=== PATIENT | female | born 1945 | race Caucasian/White ===

== ENCOUNTER 2017-12-03 07:44 | Outpatient (CLI) | payer MEDICARE, BC, SELFPAY ==
[2017-12-03 09:42] LABS: Prothrombin Time 28.6 sec (9.3-10.8)
== END 2017-12-03 07:45 ==
PROVIDERS: PCP Family Medicine; Visit Provider Internal Medicine
DX: I48.2 Chronic atrial fibrillation (principal); Z79.01 Long term (current) use of anticoagulants
CPT/HCPCS: 36415; 85610

== ENCOUNTER 2017-12-10 07:39 | Outpatient (CLI) | payer MEDICARE, BC, SELFPAY ==
[2017-12-10 09:44] LABS: Prothrombin Time 39.1 sec (9.3-10.8)
[2017-12-10 10:10] LABS: INR 4.2 (1.0-3.5)
== END 2017-12-10 07:40 ==
PROVIDERS: PCP Family Medicine; Visit Provider Internal Medicine
DX: I48.2 Chronic atrial fibrillation (principal); Z79.01 Long term (current) use of anticoagulants
CPT/HCPCS: 36415; 85610

== ENCOUNTER 2017-12-17 08:12 | Outpatient (CLI) | payer MEDICARE, BC, SELFPAY ==
[2017-12-17 10:45] LABS: INR 3.3 (1.0-3.5); Prothrombin Time 30.7 sec (9.3-10.8)
== END 2017-12-17 08:13 ==
PROVIDERS: PCP Family Medicine; Visit Provider Internal Medicine
DX: I48.2 Chronic atrial fibrillation (principal); Z79.01 Long term (current) use of anticoagulants
CPT/HCPCS: 36415; 85610

== ENCOUNTER 2018-01-11 13:37 | Outpatient (CLI) | payer MEDICARE, BC, SELFPAY ==
[2018-01-11 15:03] LABS: INR 2.9 (1.0-3.5); Prothrombin Time 27.5 sec (9.3-10.8)
== END 2018-01-11 13:57 ==
PROVIDERS: PCP Family Medicine; Visit Provider Internal Medicine
DX: I48.2 Chronic atrial fibrillation (principal); Z79.01 Long term (current) use of anticoagulants
CPT/HCPCS: 36415; 85610

== ENCOUNTER 2018-01-25 08:17 | Outpatient (CLI) | payer MEDICARE, BC, SELFPAY ==
[2018-01-25 11:25] LABS: INR 3.5 (1.0-3.5); Prothrombin Time 32.8 sec (9.3-10.8)
== END 2018-01-25 08:37 ==
PROVIDERS: PCP Family Medicine; Visit Provider Internal Medicine
DX: I48.2 Chronic atrial fibrillation (principal); Z79.01 Long term (current) use of anticoagulants
CPT/HCPCS: 36415; 85610

== ENCOUNTER 2018-02-01 10:27 | Outpatient (CLI) | payer MEDICARE, BC, SELFPAY ==
[2018-02-01 11:54] LABS: INR 2.7 (1.0-3.5); Prothrombin Time 25.9 sec (9.3-10.8)
== END 2018-02-01 10:47 ==
PROVIDERS: PCP Family Medicine; Visit Provider Internal Medicine
DX: I48.2 Chronic atrial fibrillation (principal); Z79.01 Long term (current) use of anticoagulants
CPT/HCPCS: 36415; 85610

== ENCOUNTER 2018-02-15 07:45 | Outpatient (CLI) | payer MEDICARE, BC, SELFPAY ==
[2018-02-15 09:43] LABS: INR 3.3 (1.0-3.5); Prothrombin Time 30.9 sec (9.3-10.8)
[2018-02-15 11:18] LABS: ALT 22 U/L (12-78); Anion Gap 11.1 mmol/L (3-11); BUN 36 mg/dL (7-18); CO2 25.9 mmol/L (21.0-32.0); Calcium 8.6 mg/dL (8.5-10.1); Chloride 107 mmol/L (98-107); Cholesterol 140 mg/dL (50-200); Estimated GFR 40.26 (mL/min/1.73m2); Glucose 108 mg/dL (70-100); HDL Cholesterol 37 mg/dL (40-60); LDL CHOLESTEROL 89 mg/dL (<100); Magnesium 1.7 mg/dL (1.8-2.4); Potassium 4.5 mmol/L (3.5-5.1); Sodium 144 mmol/L (136-145); TSH (W/Ref FT4) 0.03 uIU/mL (0.358-3.74); Triglyceride 115 mg/dL (30-150)
[2018-02-15 11:39] LABS: FREE T4 1.86 ng/dL (0.76-1.46)
[2018-02-17 11:38] LABS: Hepatitis C Ab w Rflx HCV PCR Negative (NEGAT)
== END 2018-02-15 08:05 ==
PROVIDERS: PCP Family Medicine; Visit Provider Internal Medicine
DX: E11.9 Type 2 diabetes mellitus without complications (principal); I10 Essential (primary) hypertension; E03.9 Hypothyroidism, unspecified; Z11.59 Encounter for screening for other viral diseases; I48.2 Chronic atrial fibrillation; Z79.01 Long term (current) use of anticoagulants
CPT/HCPCS: 36415; 80048; 80061; 83721; 86803; 83036; 83735; 84439; 84443; 84460; 85610

== ENCOUNTER 2018-02-22 10:15 | Outpatient (REF) | payer MEDICARE, BC, SELFPAY ==
[2018-02-22 13:26] LABS: HCT 35.7 % (36.0-46.0); HGB 11.7 g/dL (12.0-15.5); Mean Corp. HGB Concentration 32.8 g/dL (32.0-36.0); Mean Corpuscular Hemoglobin 33.4 pg (27.0-33.0); Mean Platelet Volume 12.2 fL (8.0-11.0); Platelet Count 167 x1000/uL (130-400); RBC Distribution Width 13.8 % (11.7-14.6); White Blood Cell Count 8.85 k/cumm (4.4-10.8)
[2018-02-22 14:45] LABS: Uric Acid 7.3 mg/dL (2.6-6.0)
[2018-02-23 18:53] LABS: Tissue Transglutaminase Ab IgA <1.2 U/mL
[2018-02-24 09:16] LABS: IgA 125 mg/dL (85-499)
== END 2018-02-22 10:35 ==
LOC: NCHCN 10:15
PROVIDERS: PCP Family Medicine; Visit Provider Family Medicine
DX: K52.9 Noninfective gastroenteritis and colitis, unspecified (principal)
CPT/HCPCS: 82784; 85027; 83516; 84550

== ENCOUNTER 2018-02-26 00:38 | Outpatient (CLI) | payer MEDICARE, BC, SELFPAY ==
--- NOTE | 2018-02-26 07:51 | DI.US_ITS ---
SYMPTOM/DIAGNOSIS: ABD BLOATING, R14.0 PELVIC ULTRASOUND: Pelvic ultrasound was performed transabdominally and transvaginally. Uterus is somewhat atrophic measuring 6 by 2.5 by 2.9 cm. in diameter with an apparent 8 mm. posterior uterine fibroid. Endometrial stripe is 1 mm. in thickness and appears homogeneous. No free fluid identified in the cul-de-sac. Ovaries were non visualized transabdominally or transvaginally. Limited scanning of the kidneys is unremarkable. CONCLUSION: Essentially negative pelvic ultrasound, post menopausal patient. Ovaries non visualized.
--- NOTE | 2018-02-26 08:42 | DI.RAD_ITS ---
SYMPTOM/DIAGNOSIS: CHRONIC DIARRHEA, K52.9 ABDOMEN: Two views were obtained. There are vascular clips in the right upper quadrant consistent with previous cholecystectomy. Bowel gas pattern is unremarkable. No other specific abnormality is seen.
== END 2018-02-26 00:58 ==
PROVIDERS: PCP Family Medicine; Visit Provider Family Medicine
DX: D25.9 Leiomyoma of uterus, unspecified (principal); N85.8 Other specified noninflammatory disorders of uterus; R14.0 Abdominal distension (gaseous); K52.9 Noninfective gastroenteritis and colitis, unspecified; Z90.49 Acquired absence of other specified parts of digestive tract
CPT/HCPCS: 74018; 76830; 76856

== ENCOUNTER 2018-03-01 10:03 | Outpatient (CLI) | payer MEDICARE, BC, SELFPAY ==
[2018-03-01 11:03] LABS: INR 2.2 (1.0-3.5); Prothrombin Time 21.1 sec (9.3-10.8)
== END 2018-03-01 10:23 ==
PROVIDERS: PCP Family Medicine; Visit Provider Internal Medicine
DX: I48.2 Chronic atrial fibrillation (principal); Z79.01 Long term (current) use of anticoagulants
CPT/HCPCS: 36415; 85610

== ENCOUNTER 2018-03-18 08:51 | Outpatient (CLI) | payer MEDICARE, BC, SELFPAY ==
[2018-03-18 09:36] LABS: INR 1.7 (1.0-3.5); Prothrombin Time 16.7 sec (9.3-10.8)
== END 2018-03-18 09:11 ==
PROVIDERS: PCP Family Medicine; Visit Provider Internal Medicine
DX: I48.2 Chronic atrial fibrillation (principal); Z79.01 Long term (current) use of anticoagulants
CPT/HCPCS: 36415; 85610

== ENCOUNTER 2018-04-14 07:38 | Outpatient (CLI) | payer MEDICARE, BC, SELFPAY ==
[2018-04-14 09:40] LABS: INR 2.3 (1.0-3.5); Prothrombin Time 21.6 sec (9.3-10.8)
== END 2018-04-14 07:58 ==
PROVIDERS: PCP Family Medicine; Visit Provider Internal Medicine
DX: I48.2 Chronic atrial fibrillation (principal); Z79.01 Long term (current) use of anticoagulants
CPT/HCPCS: 36415; 85610

== ENCOUNTER 2018-04-21 07:43 | Outpatient (CLI) | payer MEDICARE, BC, SELFPAY ==
[2018-04-21 09:54] LABS: INR 2.1 (1.0-3.5); Prothrombin Time 20.7 sec (9.3-11.0)
== END 2018-04-21 08:03 ==
PROVIDERS: PCP Family Medicine; Visit Provider Internal Medicine
DX: I48.2 Chronic atrial fibrillation (principal); Z79.01 Long term (current) use of anticoagulants
CPT/HCPCS: 36415; 85610

== ENCOUNTER 2018-04-28 00:16 | Outpatient (CLI) | payer MEDICARE, BC, SELFPAY ==
--- NOTE | 2018-04-28 08:59 | DI.RAD_ITS ---
SYMPTOMS/DIAGNOSIS: PREOP, A-FIB, I48.1 PA AND LATERAL CHEST: The heart is normal in size. The lungs are clear. The mediastinal structures and pleura appear intact. CONCLUSION: Normal chest.
[2018-04-28 09:35] LABS: HCT 34.4 % (36.0-46.0); HGB 11.5 g/dL (12.0-15.5); Mean Corp. HGB Concentration 33.4 g/dL (32.0-36.0); Mean Corpuscular Hemoglobin 33.8 pg (27.0-33.0); Mean Corpuscular Volume 101.2 fL (80-95); Platelet Count 161 x1000/uL (130-400); RBC Distribution Width 13.4 % (11.7-14.6)
[2018-04-28 09:56] LABS: INR 2.8 (1.0-3.5); PTT Activated 30.9 sec (21.0-31.4); Prothrombin Time 28.7 sec (9.3-11.0)
[2018-04-28 10:39] LABS: ALT 26 U/L (12-78); AST 20 U/L (15-37); Albumin 3.8 g/dL (3.4-5.0); Alkaline Phosphatase 84 U/L (46-116); Anion Gap 9.6 mmol/L (3-11); BUN 28 mg/dL (7-18); Bilirubin, Total 0.7 mg/dL (0.2-1.0); CO2 26.4 mmol/L (21.0-32.0); CREATININE 1.16 mg/dL (0.55-1.02); Calcium 9.4 mg/dL (8.5-10.1); Chloride 101 mmol/L (98-107); Estimated GFR 45.92 (mL/min/1.73m2); Glucose 131 mg/dL (70-100); Potassium 4.6 mmol/L (3.5-5.1); Sodium 137 mmol/L (136-145); Total Protein 6.6 g/dL (6.4-8.2)
[2018-04-28 13:00] LABS: Bilirubin Negative (Negative); Blood Negative (Negative); Glucose Negative (Negative); Ketones Negative (Negative); Nitrite Negative (Negative); Urobilinogen 0.2 EU/dL (Up TO 0.2)
[2018-04-28 17:09] LABS: Clarity Clear; Specific Gravity 1.005 (1.005-1.025)
[2018-04-28 17:10] LABS: pH 5.5 (5-8)
[2018-04-28 17:11] LABS: Leukocyte Esterase Small (Negative)
[2018-04-28 17:31] LABS: Bacteria Negative HPF (Negative); C & S Indicated? Yes; Casts Negative LPF (Negative); Crystals Negative HPF (Negative); Epithelial Cells Negative HPF (Negative); Mucus Negative (Negative); Other Cells Moderate Renal (Negative); RBC Negative (0-2)
== END 2018-04-28 00:36 ==
PROVIDERS: PCP Family Medicine; Visit Provider Family Medicine
DX: I48.1 Persistent atrial fibrillation (principal); Z79.01 Long term (current) use of anticoagulants; Z01.818 Encounter for other preprocedural examination
CPT/HCPCS: 36415; 80053; 85027; 71046; 81003; 81015; 85610; 85730; 87086

== ENCOUNTER 2018-05-28 09:15 | Outpatient (CLI) | payer MEDICARE, BC, SELFPAY ==
[2018-05-28 09:51] LABS: INR 1.8 (0.9-1.1); Prothrombin Time 17.8 sec (9.3-11.0)
== END 2018-05-28 09:35 ==
PROVIDERS: PCP Family Medicine; Visit Provider Internal Medicine
DX: I48.2 Chronic atrial fibrillation (principal); Z79.01 Long term (current) use of anticoagulants
CPT/HCPCS: 36415; 85610

== ENCOUNTER 2018-06-03 08:46 | Outpatient (CLI) | payer MEDICARE, BC, SELFPAY ==
[2018-06-03 10:04] LABS: INR 1.8 (0.9-1.1); Prothrombin Time 18.2 sec (9.3-11.0)
== END 2018-06-03 09:06 ==
PROVIDERS: PCP Family Medicine; Visit Provider Internal Medicine
DX: I48.2 Chronic atrial fibrillation (principal); Z79.01 Long term (current) use of anticoagulants
CPT/HCPCS: 36415; 85610

== ENCOUNTER 2018-06-22 08:21 | Outpatient (CLI) | payer MEDICARE, BC, SELFPAY ==
[2018-06-22 11:00] LABS: INR 2.1 (0.9-1.1); Prothrombin Time 20.7 sec (9.3-11.0)
== END 2018-06-22 08:41 ==
PROVIDERS: PCP Family Medicine; Visit Provider Internal Medicine
DX: I48.2 Chronic atrial fibrillation (principal); Z79.01 Long term (current) use of anticoagulants
CPT/HCPCS: 36415; 85610

== ENCOUNTER 2018-06-25 07:56 | Outpatient (CLI) | payer MEDICARE, BC, SELFPAY ==
[2018-06-25 10:34] LABS: INR 1.5 (0.9-1.1); Prothrombin Time 15.1 sec (9.3-11.0)
== END 2018-06-25 08:16 ==
PROVIDERS: PCP Family Medicine; Visit Provider Internal Medicine
DX: I48.2 Chronic atrial fibrillation (principal); Z79.01 Long term (current) use of anticoagulants
CPT/HCPCS: 36415; 85610

== ENCOUNTER 2018-08-08 09:22 | Emergency (ER) | payer MEDICARE, BC, SELFPAY ==
[2018-08-08 09:27] VITALS: BP 152/71; PULSE 101; RESP 18; TEMP 37; O2SAT 94
--- NOTE | 2018-08-08 09:40 | ED.GENADUL_ITS ---
Discharge Plan Disposition Patient Disposition: HOME Condition: Improving Discharge Details Chief Complaint: Laceration Clinical Impression: Laceration of hand, left Primary Care Provider: Ana Her ED Provider: Ciro Miller Home Meds and New Rx's Prescriptions: Continued cyanocobalamin (vitamin B-12) [Vitamin B-12] 100 MCG tablet 1 tab PO DIRECTED RF: 0 spironolactone 25 MG tablet 25 mg PO DAILY RF: 0 atorvastatin [Lipitor] 40 MG tablet 40 mg PO QPM RF: 0 omeprazole 20 MG capsule,delayed release(DR/EC) 20 mg PO DAILY@0730 RF: 0 amlodipine 5 MG tablet 10 mg PO DAILY RF: 0 gabapentin 300 MG capsule 300 mg PO TID RF: 0 furosemide 20 MG tablet 40 mg PO DAILY RF: 0 ibuprofen 600 MG tablet 600 mg PO TID RF: 0 levothyroxine 125 MCG tablet 125 mcg PO DAILY RF: 0 lisinopril 40 MG tablet 40 mg PO DAILY RF: 0 metoprolol succinate 50 MG tablet extended release 24 hr 50 mg PO DAILY Qty: 30 RF: 0 metoprolol succinate 25 MG tablet extended release 24 hr 25 mg PO DAILY Qty: 30 RF: 0 apixaban [Eliquis] 5 MG tablet 5 mg PO BID Qty: 60 RF: 0 allopurinol 100 MG tablet 100 mg PO DAILY Qty: 0 RF: 0 Discharge Instructions Instructions: Laceration (ED) Additional Instructions: Return in 7-10 days time for removal of sutures. 12 sutures were placed. May use gentle soap and water cleanse, pat dry with daily dressing change. Continue your regular medications. Tylenol if needed for pain. Return for any acute concern Medical Decision Making 72-year-old female with large laceration to the dorsum of her right hand when her dog pulled her hand against a door frame while going out for a walk. She was not injured in any other way. Tetanus status up-to-date at 2010 Irrigated, cleansed, anesthetized, examined in a bloodless field with no evidence of foreign body. Repaired with interrupted suture with good wound edge apposition. She is stable and improved, understands return precautions, will return for suture removal. HPI General Mode of arrival: ambulatory . Date/Time Provider Initiated Documentation: 08/08/18 09:33 . Limitations to Documentation: no limitations . Information obtained by: patient . History of Present Illness 72 year old F presents to the emergency department with the chief complaint of Dorsum right hand laceration, described as moderate, Quality is described as aching and dull, and is localized to the right and upper extremity. Patient reports no radiation. Patient started experiencing this minute(s) and it has been constant. No relieving factors improve symptom(s), No exacerbating factors reported . Patient did receive the following treatments prior to arrival, none Related Data Home Medications Medication Instructions Recorded Confirmed atorvastatin [Lipitor] 40 mg PO QPM 06/13/13 03/17/17 omeprazole 20 mg PO DAILY@0730 06/13/13 03/17/17 cyanocobalamin (vitamin B-12) 1 tab PO DIRECTED 11/07/15 03/17/17 [Vitamin B-12] amlodipine 10 mg PO DAILY 05/31/16 03/17/17 furosemide 40 mg PO DAILY 05/31/16 03/17/17 gabapentin 300 mg PO TID 05/31/16 03/17/17 ibuprofen 600 mg PO TID 06/02/16 03/17/17 levothyroxine 125 mcg PO DAILY 06/02/16 03/17/17 lisinopril 40 mg PO DAILY 06/02/16 03/17/17 spironolactone 25 mg PO DAILY tab-cap 02/11/17 03/17/17 allopurinol 100 mg PO DAILY #0 03/18/17 03/17/17 apixaban [Eliquis] 5 mg PO BID #60 tablet 03/18/17 metoprolol succinate 25 mg PO DAILY #30 tabcr 03/18/17 metoprolol succinate 50 mg PO DAILY #30 tabcr 03/18/17 Previous Rx's Medication Instructions Recorded allopurinol 100 mg PO DAILY #0 03/18/17 apixaban [Eliquis] 5 mg PO BID #60 tablet 03/18/17 metoprolol succinate 25 mg PO DAILY #30 tabcr 03/18/17 metoprolol succinate 50 mg PO DAILY #30 tabcr 03/18/17 Allergies Allergy/AdvReac Type Severity Reaction Status Date / Time No Known Allergies Allergy Unverified 08/08/18 09:35 General Stated Complaint: Laceration FRANCINE: 3 Review of Systems Review of Systems 6 systems reviewed and otherwise negative. No weakness, no numbness, no tingling [facility] Medical History Aortic stenosis Arthritis Breast cancer Chronic venous insufficiency Glucose intolerance (impaired glucose tolerance) HTN (hypertension) RACHAEL (obstructive sleep apnea) PUD (peptic ulcer disease) Surgical History Cholecystectomy Colonoscopy - [facility] (03/17/17) Family History Grandmother Colon cancer Other Stroke Social History Smoking/Tobacco Use Status: Never Drug use: Never Do you feel safe at home: Yes Do you feel safe in your relationship?: Yes Exam Narrative Exam Narrative: GEN: awake, alert, oriented 3. Pleasant, well groomed, interactive. HEAD: Normocephalic, atraumatic EXT: Full ROM, no edema, no rash. Large skin tear on the dorsum of the right hand with a chevron shaped laceration measuring approximately 7 cm. No motor weakness. Sensation intact Neuro: Grossly normal neurologic exam, conversant, interactive. Psych: Speech fluent, thoughts congruent, affect normal Course Vital Signs Temperature 37 C 08/08/18 09:27 Pulse 101 H 08/08/18 09:27 Respiratory Rate 18 08/08/18 09:27 Blood Pressure 152/71 H 08/08/18 09:27 Pulse Oximetry 94 L 08/08/18 09:27 Temperature 37 C 08/08/18 09:27 Temperature Source Temporal Artery Scan 08/08/18 09:27 Pulse 101 H 08/08/18 09:27 Respiratory Rate 18 08/08/18 09:27 Respiratory Effort Non-Labored 08/08/18 09:32 Blood Pressure 152/71 H 08/08/18 09:27 Blood Pressure Position Sitting 08/08/18 09:27 Pulse Oximetry 94 L 08/08/18 09:27 Oxygen Delivery Method Room Air 08/08/18 09:27 Oxygen Flow Rate 0 08/08/18 09:27 Pain Level 5 08/08/18 09:27 Procedures Laceration Laceration 1: Site: hand Side (If applicable): left Size (cm): 8 Description: other (Chevron) Depth: simple, single layer Local Anesthetic: Lidocaine 1% Amount of anesthesia used (mL): 3 Pre-repair: wound explored, irrigated extensively and deep structures intact Skin layer closed with: nylon Size (cm): 4-0 Number of sutures: 12 Technique: simple, interrupted
== END 2018-08-08 10:54 | disposition home or self-care (01) ==
PROVIDERS: Emergency Provider Emergency Medicine; PCP Family Medicine
DX: S61.412A Laceration without foreign body of left hand, initial encounter (principal); W22.8XXA Striking against or struck by other objects, initial encounter
CPT/HCPCS: 12004

== ENCOUNTER 2018-08-17 07:52 | Emergency (ER) | payer MEDICARE, BC, SELFPAY ==
--- NOTE | 2018-08-17 07:56 | W.ED.GENAD ---
Discharge Plan Disposition Patient Disposition: HOME Condition: Stable Discharge Details Chief Complaint: SutureRem Clinical Impression: Visit for suture removal Primary Care Provider: Ana Her ED Provider: Dario Belcher [place] Meds and New Rx's Prescriptions: No Action cyanocobalamin (vitamin B-12) [Vitamin B-12] 100 MCG tablet 1 tab PO DIRECTED RF: 0 spironolactone 25 MG tablet 25 mg PO DAILY RF: 0 atorvastatin [Lipitor] 40 MG tablet 40 mg PO QPM RF: 0 omeprazole 20 MG capsule,delayed release(DR/EC) 20 mg PO DAILY@0730 RF: 0 amlodipine 5 MG tablet 10 mg PO DAILY RF: 0 gabapentin 300 MG capsule 300 mg PO TID RF: 0 furosemide 20 MG tablet 40 mg PO DAILY RF: 0 ibuprofen 600 MG tablet 600 mg PO TID RF: 0 levothyroxine 125 MCG tablet 125 mcg PO DAILY RF: 0 lisinopril 40 MG tablet 40 mg PO DAILY RF: 0 metoprolol succinate 50 MG tablet extended release 24 hr 50 mg PO DAILY Qty: 30 RF: 0 metoprolol succinate 25 MG tablet extended release 24 hr 25 mg PO DAILY Qty: 30 RF: 0 Eliquis 5 MG tablet 5 mg PO BID Qty: 60 RF: 0 allopurinol 100 MG tablet 100 mg PO DAILY Qty: 0 RF: 0 Discharge Instructions Instructions: Stitches Removal (ED) Medical Decision Making Pt had sutures placed over aweek ago in posterior right hand. Has no discomfort in the hand, no ertyehma or warmth to suggest infection . Stitches removed without incident, will d/c home and advised return for signs of infection. Differential Diagnosis suture removal, lac HPI General Mode of arrival: ambulatory. Date/Time Provider Initiated Documentation: 08/17/18 07:55. Limitations to Documentation: no limitations. Information obtained by: patient. History of Present Illness 73 year old F presents to the emergency department with the chief complaint of suture removal, described as mild, Quality is described as aching, and is localized to the right and upper extremity. No relieving factors improve symptom(s), No exacerbating factors reported . Patient notes no other symptoms.. Related Data Home Medications Medication Instructions Recorded Confirmed atorvastatin [Lipitor] 40 mg PO QPM 06/13/13 08/17/18 omeprazole 20 mg PO DAILY@0730 06/13/13 08/17/18 cyanocobalamin (vitamin B-12) 1 tab PO DIRECTED 11/07/15 08/17/18 [Vitamin B-12] amlodipine 10 mg PO DAILY 05/31/16 08/17/18 furosemide 40 mg PO DAILY 05/31/16 08/17/18 gabapentin 300 mg PO TID 05/31/16 08/17/18 ibuprofen 600 mg PO TID 06/02/16 08/17/18 levothyroxine 125 mcg PO DAILY 06/02/16 08/17/18 lisinopril 40 mg PO DAILY 06/02/16 08/17/18 spironolactone 25 mg PO DAILY tab-cap 02/11/17 08/17/18 Eliquis 5 mg PO BID #60 tablet 03/18/17 08/17/18 allopurinol 100 mg PO DAILY #0 03/18/17 08/17/18 metoprolol succinate 25 mg PO DAILY #30 tabcr 03/18/17 08/17/18 metoprolol succinate 50 mg PO DAILY #30 tabcr 03/18/17 08/17/18 Previous Rx's Medication Instructions Recorded Eliquis 5 mg PO BID #60 tablet 03/18/17 allopurinol 100 mg PO DAILY #0 03/18/17 metoprolol succinate 25 mg PO DAILY #30 tabcr 03/18/17 metoprolol succinate 50 mg PO DAILY #30 tabcr 03/18/17 Allergies Allergy/AdvReac Type Severity Reaction Status Date / Time No Known Allergies Allergy Unverified 08/17/18 07:57 General FRANCINE: 3 Review of Systems Review of Systems All systems reviewed & are unremarkable except as noted in HPI and below Constitutional Denies chills and Denies fever(s) Cardiovascular Denies chest pain and Denies dyspnea Respiratory Denies dyspnea Gastrointestinal Denies abdominal pain, Denies nausea and Denies vomiting Integumentary/Breasts Denies rash [facility] Medical History Aortic stenosis Arthritis Breast cancer Chronic venous insufficiency Glucose intolerance (impaired glucose tolerance) HTN (hypertension) RACHAEL (obstructive sleep apnea) PUD (peptic ulcer disease) Surgical History Cholecystectomy Colonoscopy - [facility] (11/14/17) Family History Grandmother Colon cancer Other Stroke Social History Smoking/Tobacco Use Status: Never Drug use: Never Do you feel safe at home: Yes Do you feel safe in your relationship?: Yes Exam Const General: no acute distress Orientation: alert HENMT Head: normal to inspection Ears: external ears normal General nose exam: external nose normal Mouth: moist mucous membranes Eyes General: appearance normal, both eyes and all related structures Neck Neck: normal visual inspection Resp Effort & Inspection: normal respiratory effort and able to speak in complete sentences Cardio Rate: regular rate Skin General skin exam: no rashes or lesions noted Neuro General: alert and oriented x3 Psych Mental Status: mental status grossly normal
--- NOTE | 2018-08-17 08:05 | ED.GENADUL_ITS ---
Discharge Plan Disposition Patient Disposition: HOME Condition: Stable Discharge Details Chief Complaint: SutureRem Clinical Impression: Visit for suture removal Primary Care Provider: Ana Her ED Provider: Dario Belcher [place] Meds and New Rx's Prescriptions: No Action cyanocobalamin (vitamin B-12) [Vitamin B-12] 100 MCG tablet 1 tab PO DIRECTED RF: 0 spironolactone 25 MG tablet 25 mg PO DAILY RF: 0 atorvastatin [Lipitor] 40 MG tablet 40 mg PO QPM RF: 0 omeprazole 20 MG capsule,delayed release(DR/EC) 20 mg PO DAILY@0730 RF: 0 amlodipine 5 MG tablet 10 mg PO DAILY RF: 0 gabapentin 300 MG capsule 300 mg PO TID RF: 0 furosemide 20 MG tablet 40 mg PO DAILY RF: 0 ibuprofen 600 MG tablet 600 mg PO TID RF: 0 levothyroxine 125 MCG tablet 125 mcg PO DAILY RF: 0 lisinopril 40 MG tablet 40 mg PO DAILY RF: 0 metoprolol succinate 50 MG tablet extended release 24 hr 50 mg PO DAILY Qty: 30 RF: 0 metoprolol succinate 25 MG tablet extended release 24 hr 25 mg PO DAILY Qty: 30 RF: 0 Eliquis 5 MG tablet 5 mg PO BID Qty: 60 RF: 0 allopurinol 100 MG tablet 100 mg PO DAILY Qty: 0 RF: 0 Discharge Instructions Instructions: Stitches Removal (ED) Medical Decision Making Pt had sutures placed over aweek ago in posterior right hand. Has no discomfort in the hand, no ertyehma or warmth to suggest infection . Stitches removed without incident, will d/c home and advised return for signs of infection. Differential Diagnosis suture removal, lac HPI General Mode of arrival: ambulatory . Date/Time Provider Initiated Documentation: 08/17/18 07:55 . Limitations to Documentation: no limitations . Information obtained by: patient . History of Present Illness 73 year old F presents to the emergency department with the chief complaint of suture removal, described as mild, Quality is described as aching, and is localized to the right and upper extremity. No relieving factors improve symptom(s), No exacerbating factors reported . Patient notes no other symptoms.. Related Data Home Medications Medication Instructions Recorded Confirmed atorvastatin [Lipitor] 40 mg PO QPM 06/13/13 08/17/18 omeprazole 20 mg PO DAILY@0730 06/13/13 08/17/18 cyanocobalamin (vitamin B-12) 1 tab PO DIRECTED 11/07/15 08/17/18 [Vitamin B-12] amlodipine 10 mg PO DAILY 05/31/16 08/17/18 furosemide 40 mg PO DAILY 05/31/16 08/17/18 gabapentin 300 mg PO TID 05/31/16 08/17/18 ibuprofen 600 mg PO TID 06/02/16 08/17/18 levothyroxine 125 mcg PO DAILY 06/02/16 08/17/18 lisinopril 40 mg PO DAILY 06/02/16 08/17/18 spironolactone 25 mg PO DAILY tab-cap 02/11/17 08/17/18 Eliquis 5 mg PO BID #60 tablet 03/18/17 08/17/18 allopurinol 100 mg PO DAILY #0 03/18/17 08/17/18 metoprolol succinate 25 mg PO DAILY #30 tabcr 03/18/17 08/17/18 metoprolol succinate 50 mg PO DAILY #30 tabcr 03/18/17 08/17/18 Previous Rx's Medication Instructions Recorded Eliquis 5 mg PO BID #60 tablet 03/18/17 allopurinol 100 mg PO DAILY #0 03/18/17 metoprolol succinate 25 mg PO DAILY #30 tabcr 03/18/17 metoprolol succinate 50 mg PO DAILY #30 tabcr 03/18/17 Allergies Allergy/AdvReac Type Severity Reaction Status Date / Time No Known Allergies Allergy Unverified 08/17/18 07:57 General FRANCINE: 3 Review of Systems Review of Systems All systems reviewed & are unremarkable except as noted in HPI and below Constitutional Denies chills and Denies fever(s) Cardiovascular Denies chest pain and Denies dyspnea Respiratory Denies dyspnea Gastrointestinal Denies abdominal pain, Denies nausea and Denies vomiting Integumentary/Breasts Denies rash [facility] Medical History Aortic stenosis Arthritis Breast cancer Chronic venous insufficiency Glucose intolerance (impaired glucose tolerance) HTN (hypertension) RACHAEL (obstructive sleep apnea) PUD (peptic ulcer disease) Surgical History Cholecystectomy Colonoscopy - [facility] (11/14/17) Family History Grandmother Colon cancer Other Stroke Social History Smoking/Tobacco Use Status: Never Drug use: Never Do you feel safe at home: Yes Do you feel safe in your relationship?: Yes Exam Const General: no acute distress Orientation: alert HENMT Head: normal to inspection Ears: external ears normal General nose exam: external nose normal Mouth: moist mucous membranes Eyes General: appearance normal, both eyes and all related structures Neck Neck: normal visual inspection Resp Effort & Inspection: normal respiratory effort and able to speak in complete sentences Cardio Rate: regular rate Skin General skin exam: no rashes or lesions noted Neuro General: alert and oriented x3 Psych Mental Status: mental status grossly normal
[2018-08-17 08:55] VITALS: BP 157/67; PULSE 76; RESP 16; TEMP 36.4; O2SAT 98
== END 2018-08-17 08:07 | disposition home or self-care (01) ==
PROVIDERS: Emergency Provider Emergency Medicine; PCP Family Medicine
DX: S61.411D Laceration without foreign body of right hand, subsequent encounter (principal); W22.8XXD Striking against or struck by other objects, subsequent encounter; Z48.02 Encounter for removal of sutures; I10 Essential (primary) hypertension

== ENCOUNTER 2018-08-30 09:49 | Outpatient (REF) | payer MEDICARE, BC, SELFPAY ==
[2018-08-30 13:18] LABS: Anion Gap 11.6 mmol/L (3-11); BUN 26 mg/dL (7-18); CO2 25.4 mmol/L (21.0-32.0); Calcium 9.3 mg/dL (8.5-10.1); Chloride 104 mmol/L (98-107); Estimated GFR 48.69 (mL/min/1.73m2); Glucose 112 mg/dL (70-100); Potassium 4.3 mmol/L (3.5-5.1); Sodium 141 mmol/L (136-145); TSH (W/Ref FT4) 0.66 uIU/mL (0.358-3.74)
[2018-08-30 13:30] LABS: Uric Acid 5.9 mg/dL (2.6-6.0)
== END 2018-08-30 10:09 ==
LOC: NCHCN 09:49
PROVIDERS: PCP Family Medicine; Visit Provider Family Medicine
DX: E03.9 Hypothyroidism, unspecified (principal); I10 Essential (primary) hypertension; M1A.0790 Idiopathic chronic gout, unspecified ankle and foot, without tophus (tophi)
CPT/HCPCS: 80048; 84443; 84550

== ENCOUNTER 2018-09-01 15:18 | Outpatient (REF) | payer MEDICARE, BC, SELFPAY ==
[2018-09-01 19:33] LABS: HCT 36.5 % (36.0-46.0); HGB 11.9 g/dL (12.0-15.5); Mean Corp. HGB Concentration 32.6 g/dL (32.0-36.0); Mean Corpuscular Hemoglobin 32.9 pg (27.0-33.0); Mean Corpuscular Volume 100.8 fL (80-95); Mean Platelet Volume 11.7 fL (8.0-11.0); Platelet Count 174 x1000/uL (130-400); RBC 3.62 m/cumm (4.00-5.20); RBC Distribution Width 13.6 % (11.7-14.6); White Blood Cell Count 8.41 k/cumm (4.4-10.8)
[2018-09-01 20:12] LABS: Magnesium 1.7 mg/dL (1.8-2.4); Vitamin B12 988 pg/mL (193-986)
[2018-09-01 20:28] LABS: Folate > 20.0 ng/mL (8.6-20.0)
== END 2018-09-01 15:38 ==
LOC: NCHCN 15:18
PROVIDERS: PCP Family Medicine; Visit Provider Family Medicine
DX: N18.3 Chronic kidney disease, stage 3 (moderate) (principal)
CPT/HCPCS: 85027; 82607; 82746; 83735

== ENCOUNTER 2018-11-11 14:33 | Outpatient (REF) | payer MEDICARE, BC, SELFPAY ==
[2018-11-11 19:05] LABS: HCT 35.1 % (36.0-46.0); HGB 11.7 g/dL (12.0-15.5); Mean Corp. HGB Concentration 33.3 g/dL (32.0-36.0); Mean Corpuscular Hemoglobin 33.7 pg (27.0-33.0); Mean Corpuscular Volume 101.2 fL (80-95); Mean Platelet Volume 11.7 fL (8.0-11.0); Platelet Count 150 x1000/uL (130-400); RBC 3.47 m/cumm (4.00-5.20); White Blood Cell Count 9.01 k/cumm (4.4-10.8)
[2018-11-11 20:15] LABS: COMMENT (LAB VIEW ONLY) 66.22 mg/dL; Microalb ug/mg Crea 2.9 ug/mg Cr
[2018-11-11 20:16] LABS: Anion Gap 10.5 mmol/L (3-11); BUN 24 mg/dL (7-18); CO2 25.5 mmol/L (21.0-32.0); CREATININE 1.24 mg/dL (0.55-1.02); Calcium 9.9 mg/dL (8.5-10.1); Chloride 103 mmol/L (98-107); Glucose 100 mg/dL (70-100); Potassium 4.5 mmol/L (3.5-5.1); Sodium 139 mmol/L (136-145); TSH (W/Ref FT4) 0.28 uIU/mL (0.358-3.74)
== END 2018-11-11 14:53 ==
LOC: NCHCN 14:33
PROVIDERS: PCP Family Medicine; Visit Provider Family Medicine
DX: R00.0 Tachycardia, unspecified (principal); R06.09 Other forms of dyspnea; E11.9 Type 2 diabetes mellitus without complications
CPT/HCPCS: 80048; 85027; 82043; 82570; 84439; 84443

== ENCOUNTER 2019-02-22 18:59 | Outpatient (REF) | payer MEDICARE, BC, SELFPAY ==
[2019-02-22 13:52] LABS: HCT 36.5 % (36.0-46.0); HGB 11.8 g/dL (12.0-15.5); Mean Corp. HGB Concentration 32.3 g/dL (32.0-36.0); Mean Corpuscular Hemoglobin 33.1 pg (27.0-33.0); Mean Corpuscular Volume 102.2 fL (80-95); Platelet Count 181 x1000/uL (130-400); RBC 3.57 m/cumm (4.00-5.20); RBC Distribution Width 13.5 % (11.7-14.6); White Blood Cell Count 9.52 k/cumm (4.4-10.8)
[2019-02-22 13:54] LABS: Anion Gap 8.4 mmol/L (3-11); BUN 31 mg/dL (7-18); CO2 27.6 mmol/L (21.0-32.0); CREATININE 1.25 mg/dL (0.55-1.02); Calcium 9.5 mg/dL (8.5-10.1); Chloride 103 mmol/L (98-107); Estimated GFR 42.01 (mL/min/1.73m2); Glucose 130 mg/dL (70-100); Potassium 4.9 mmol/L (3.5-5.1); Sodium 139 mmol/L (136-145); TSH (W/Ref FT4) 2.18 uIU/mL (0.36-3.74)
== END 2019-02-22 19:19 ==
LOC: NCHCN 18:59
PROVIDERS: PCP Family Medicine; Visit Provider Family Medicine
DX: E11.9 Type 2 diabetes mellitus without complications (principal); E03.9 Hypothyroidism, unspecified; I10 Essential (primary) hypertension; N18.3 Chronic kidney disease, stage 3 (moderate)
CPT/HCPCS: 80048; 85027; 83036; 84443

== ENCOUNTER → 2019-04-11 08:59 | Outpatient (BNVA) | payer MEDICARE, BC, SELFPAY | PROVIDERS: PCP Family Medicine; Referring Provider Family Medicine; Visit Provider Student in an Organized Health Care Education/Training Program | DX: M65.352 Trigger finger, left little finger (principal); G56.01 Carpal tunnel syndrome, right upper limb | CPT/HCPCS: 99203; 99214 ==

== ENCOUNTER → 2019-04-13 09:50 | Outpatient (BNVA) | payer MEDICARE, BC, SELFPAY | PROVIDERS: PCP Family Medicine; Referring Provider Student in an Organized Health Care Education/Training Program; Visit Provider Nurse Practitioner Adult Health | DX: G56.01 Carpal tunnel syndrome, right upper limb (principal) | CPT/HCPCS: 95908; 99203; 99214 ==

== ENCOUNTER 2019-04-13 19:51 | Outpatient (REF) | payer MEDICARE, BC, SELFPAY ==
[2019-04-13 20:22] LABS: Anion Gap 9.3 mmol/L (3-11); BUN 23 mg/dL (7-18); CO2 26.7 mmol/L (21.0-32.0); CREATININE 1.16 mg/dL (0.55-1.02); Calcium 9.4 mg/dL (8.5-10.1); Chloride 105 mmol/L (98-107); Estimated GFR 45.79 (mL/min/1.73m2); Glucose 128 mg/dL (74-106); PHOSPHORUS 3.6 mg/dL (2.6-4.7); Potassium 4.7 mmol/L (3.5-5.1); Sodium 141 mmol/L (136-145)
== END 2019-04-13 20:11 ==
LOC: NCHCN 19:51
PROVIDERS: PCP Family Medicine; Visit Provider Family Medicine
DX: N18.3 Chronic kidney disease, stage 3 (moderate) (principal); I48.0 Paroxysmal atrial fibrillation
CPT/HCPCS: 80069

== ENCOUNTER 2019-05-10 10:59 | Day surgery (SDC) | payer MEDICARE, BC, SELFPAY ==
[2019-05-10 11:23] VITALS: BP 146/68; PULSE 85; RESP 16; TEMP 35.9; O2SAT 97
--- NOTE | 2019-05-10 11:56 | W.PM.DSUDISC ---
Discharge Plan Disposition Patient Disposition: HOME Condition: Good Discharge Details Reason For Visit: Left Little Finger Trigger Attending Provider: Pablito Goetz Primary Care Provider: Ana Her Home Meds and New Rx's Prescriptions: Continued allopurinol 100 mg tablet 100 mg PO BID RF: 0 cholecalciferol (vitamin D3) 2,000 unit tablet 2,000 unit PO DAILY RF: 0 cyanocobalamin (vitamin B-12) [Vitamin B-12] 100 MCG tablet 1 tab PO DIRECTED RF: 0 spironolactone 25 MG tablet 25 mg PO DAILY RF: 0 atorvastatin [Lipitor] 40 MG tablet 40 mg PO QPM RF: 0 omeprazole 20 MG capsule,delayed release(DR/EC) 20 mg PO DAILY@0730 RF: 0 furosemide 20 MG tablet 40 mg PO DAILY RF: 0 gabapentin 300 mg capsule 300 mg PO BID RF: 0 lisinopril 40 MG tablet 40 mg PO DAILY RF: 0 levothyroxine 125 mcg tablet 100 mcg PO DAILY RF: 0 metoprolol succinate 50 MG tablet extended release 24 hr 50 mg PO DAILY Qty: 30 RF: 0 Xarelto 15 mg Tablet 15 mg PO QPM RF: 0 Discharge Instructions Additional Instructions: Take up to 600mg Ibuprofen every 8 hours as needed and 1000mg of Tylenol every 8 hours as needed. Stand Alone Forms: Bishnu Sadler Finger Release Referrals: Pablito Goetz MD [ [facility] STAFF PHYSICIAN] - Activity:: Elevate Remove Dressings/Wound Care:: 48 hours Shower/Bathe:: 48 hours Diet:: As Tolerated Discharge Orders Discharge Orders: Discharge Order (Routine); Ordered 05/10/19 Ordered By: Pablito Goetz DS: Diagnosis Discharge Diagnosis (1) Trigger finger, left little finger: Status: Acute
[2019-05-10] MEDS: Sodium Bicarbonate 50 MEQ/50 ML VIAL (12:02)
--- NOTE | 2019-05-10 20:20 | W.PM.OP ---
Date of service: 05/10/19 Time of Service: 13:20 Operative Note Operative Note DATE OF PROCEDURE: 05/10/19 PRE-OP DIAGNOSIS: Left little finger trigger finger POST-OP DIAGNOSIS: same PROCEDURE: Trigger Finger Release -left little finger SURGEON: Pablito Goetz ANESTHESIA: local PATHOLOGY: none sent COMPLICATIONS: None Patient was transported to: same day Patient's condition: stable Indications: I have seen Digna in clinic for symptoms of a trigger finger. The catching, clicking, locking, and pain limited function. The diagnosis of trigger finger was evident. The symptoms had not responded to conservative measures. I discussed trigger finger release with the patient. I reviewed the risks of the procedure to include, but not limited to, bleeding, infection, pain, stiffness, incomplete release, damage to nerves or vessels, continued catching, recurrence. Despite these risks, the patient elected to proceed. Findings: There was a tightened A1 jamaica which was released. The flexor tendons were inspected and the patient was able to move the finger without any catching, clicking, or locking. Procedure Description: Digna was greeted in the preoperative holding area where the correct side was identified and marked. The consent was reviewed with the patient and signed. All questions were answered. Digna was taken back to the operating room. The patient was placed into the supine position on the operating room table with the left arm on an arm board. All bony prominences were well padded. No prophylactic antibiotics were administered since this was a clean, elective hand surgical case. The left arm was then prepped with Chloraprep and draped in a standard fashion with stockinette and extremity drape. A timeout to confirm correct identity, side and site, procedure, allergies, anesthesia, and medical concerns was performed. The surgical site was marked as a longitudinal incision directly over the A1 jamaica of the involved digit. This was confirmed with palpation during finger flexion. This area, overlying the metacarpal head, was then anesthetized with 1% Lidocaine. The patient tolerated this well and once the anesthetic had setup, the procedure began. A longitudinal incision was made through skin only, approximately 1cm. The deep tissues were dissected bluntly. Once the A1 jamaica and flexor tendons were identified the soft tissue including neurovascular structures were retracted medially and laterally. There were no crossing structures over the A1 jamaica. The proximal edge of the jamaica was identified and the jamaica was incised with tenotomy scissors. There was a release of the tendons once this was fully released. The tendons were then removed from the wound and inspected. Excess synovium was resected. The tendons were then returned and the patient was asked to move the finger into deep flexion and back to extension. There was no recreation of the pre-operative symptoms. The hand was then once more inspected for any A0 jamaica or area of possible constriction. The wound was then irrigated and the skin was closed with a 4-0 Nylon. This was dressed with gauze and a Conform dressing. The patient tolerated the procedure well and was returned to the Same Day Surgery area in a stable condition suffering no known complication.
== END 2019-05-10 12:56 | disposition home or self-care (01) ==
PROVIDERS: PCP Family Medicine; Visit Provider Student in an Organized Health Care Education/Training Program
PROC: (CPT 26055; principal; 2019-05-10 12:30)
DX: M65.352 Trigger finger, left little finger (principal)
CPT/HCPCS: 26055

== ENCOUNTER → 2019-05-20 08:59 | Outpatient (BNVA) | payer MEDICARE, BC, SELFPAY | PROVIDERS: PCP Family Medicine; Referring Provider Family Medicine; Visit Provider Student in an Organized Health Care Education/Training Program | DX: Z47.89 Encounter for other orthopedic aftercare (principal); I10 Essential (primary) hypertension; M65.352 Trigger finger, left little finger; G56.01 Carpal tunnel syndrome, right upper limb ==

== ENCOUNTER 2019-09-12 22:00 | Outpatient (REF) | payer MEDICARE, BC, SELFPAY ==
[2019-09-12 21:41] LABS: HCT 38.2 % (36.0-46.0); HGB 12.2 g/dL (12.0-15.5); Mean Corp. HGB Concentration 31.9 g/dL (32.0-36.0); Mean Corpuscular Hemoglobin 32.8 pg (27.0-33.0); Mean Corpuscular Volume 102.7 fL (80-95); Mean Platelet Volume 12.3 fL (8.0-11.0); Platelet Count 196 x1000/uL (130-400); RBC 3.72 m/cumm (4.00-5.20); RBC Distribution Width 14.4 % (11.7-14.6); White Blood Cell Count 12.05 k/cumm (4.4-10.8)
[2019-09-12 21:51] LABS: Iron 116 ug/dL (50-170); Total Iron Binding Capacity 415 ug/dL (250-450); Transferrin Sat 28 % (15-50)
[2019-09-12 21:54] LABS: Hemoglobin A1C 6.7 % (3.8-5.6)
[2019-09-12 22:04] LABS: Anion Gap 8.3 mmol/L (3-11); BUN 35 mg/dL (7-18); CO2 31.7 mmol/L (21.0-32.0); CREATININE 1.59 mg/dL (0.55-1.02); Calcium 9.3 mg/dL (8.5-10.1); Chloride 100 mmol/L (98-107); Estimated GFR 31.74 (mL/min/1.73m2); Ferritin 32 ng/mL (8-252); Glucose 119 mg/dL (74-106); Potassium 4.4 mmol/L (3.5-5.1); Sodium 140 mmol/L (136-145); TSH (W/Ref FT4) 0.74 uIU/mL (0.36-3.74)
== END 2019-09-12 22:20 ==
LOC: NCHCN 22:00
PROVIDERS: PCP Family Medicine; Visit Provider Family Medicine
DX: R53.83 Other fatigue (principal); D64.9 Anemia, unspecified; E03.9 Hypothyroidism, unspecified; E11.9 Type 2 diabetes mellitus without complications; N18.3 Chronic kidney disease, stage 3 (moderate); I10 Essential (primary) hypertension
CPT/HCPCS: 80048; 85027; 82728; 83036; 83540; 83550; 83735; 84443

== ENCOUNTER 2020-01-02 11:38 | Outpatient (CLI) | payer MEDICARE, BC, SELFPAY ==
--- NOTE | 2020-01-02 11:00 | DI.RAD_ITS ---
EXAM: XR KNEE LT 3V AP,LAT,SORAYA CLINICAL HISTORY: L knee pain. TECHNIQUE: 2D digital imaging was performed. COMPARISON: CR XR CHEST 2V PA LATERAL from 04/28/2018 FINDINGS: BONES: No acute fracture is present. No bony destructive lesion is seen. JOINTS: The knee is normally aligned. No joint effusion is seen. Mild joint space narrowing is seen. SOFT TISSUE: Normal. IMPRESSION: Mild joint space narrowing. DATA REPOSITORY: RADIATION DOSE DELIVERED:
== END 2020-01-02 11:58 ==
PROVIDERS: PCP Family Medicine; Referring Provider Family Medicine; Visit Provider Student in an Organized Health Care Education/Training Program
DX: M17.12 Unilateral primary osteoarthritis, left knee (principal); M25.562 Pain in left knee; M11.262 Other chondrocalcinosis, left knee; G56.01 Carpal tunnel syndrome, right upper limb
CPT/HCPCS: 20610; 73562; 99213; J1040

== ENCOUNTER 2020-01-10 08:59 | Outpatient (REF) | payer MEDICARE, BC, SELFPAY ==
[2020-01-10 15:28] LABS: HCT 36.9 % (36.0-46.0); HGB 12.2 g/dL (11.2-15.7); MCH 33.9 pg (27.0-33.0); MCHC 33.1 % (32.0-36.0); MCV 102.5 fL (80-95); MPV 11.5 fL (8.0-11.0); Platelet Count 176 10^3/uL (130-400); RDW 13.5 % (11.7-14.6); RDW-SD 51.5 fL; WBC 10.95 10^3/uL (4.4-10.8)
[2020-01-10 16:36] LABS: Hemoglobin A1C 5.8 % (<5.7)
[2020-01-10 18:27] LABS: ALT 25 U/L (14-59); AST 16 U/L (15-37); Albumin 4.1 g/dL (3.4-5.0); Alkaline Phosphatase 91 U/L (46-116); Anion Gap 5.8 mmol/L (3-11); BUN 27 mg/dL (7-18); Bilirubin, Total 0.9 mg/dL (0.2-1.0); CO2 29.2 mmol/L (21.0-32.0); CREATININE 0.96 mg/dL (0.55-1.02); Chloride 104 mmol/L (98-107); Estimated GFR 56.81 (mL/min/1.73m2); Ferritin 52 ng/mL (8-252); Glucose 116 mg/dL (74-106); Potassium 4.1 mmol/L (3.5-5.1); Sodium 139 mmol/L (136-145); Total Protein 6.8 g/dL (6.4-8.2)
== END 2020-01-10 09:19 ==
LOC: NCHCN 08:59
PROVIDERS: PCP Family Medicine; Visit Provider Family Medicine
DX: R73.03 Prediabetes (principal); D50.9 Iron deficiency anemia, unspecified; N18.3 Chronic kidney disease, stage 3 (moderate); I10 Essential (primary) hypertension
CPT/HCPCS: 80053; 85027; 82728; 83036

== ENCOUNTER 2020-01-20 08:11 | Outpatient (CLI) | payer MEDICARE, BC, SELFPAY ==
[2020-01-21 17:25] LABS: COVID-19 RT-PCR Result NEGATIVE (Negative)
== END 2020-01-20 08:31 ==
PROVIDERS: PCP Family Medicine; Visit Provider Student in an Organized Health Care Education/Training Program
DX: G56.01 Carpal tunnel syndrome, right upper limb (principal)
CPT/HCPCS: U0003

== ENCOUNTER 2020-01-24 06:42 | Day surgery (SDC) | payer MEDICARE, BC, SELFPAY ==
--- NOTE | 2020-01-18 13:56 | NUR.NOTE ---
01/18/20 1356 Patient is to hold Xarelto for 24hours (2 doses) per Kyara MUELLER. Patient is ok to proceed with the procedure per Ferny Gray CRNA/ Anesthesia Dept. Nursing Note:
[2020-01-24 06:48] VITALS: BP 152/74; PULSE 90; RESP 22; TEMP 36.7; O2SAT 97
--- NOTE | 2020-01-24 07:22 | W.PM.DSUDISC ---
Discharge Plan Disposition Patient Disposition: HOME Condition: Good Discharge Details Reason For Visit: Right Carpal Tunnel Syndrome Attending Provider: Pablito Goetz Primary Care Provider: Ana Her Home Meds and New Rx's Prescriptions: New acetaminophen 500 mg tablet 1,000 mg PO Q8H PRN (Reason: pain) Qty: 60 RF: 3 tramadol 50 mg tablet 50 mg PO Q6H PRNQty: 8 RF: 0 Continued allopurinol 100 mg tablet 200 mg PO DAILY RF: 0 cholecalciferol (vitamin D3) 2,000 unit tablet 2,000 unit PO DAILY RF: 0 amlodipine 2.5 mg tablet 2.5 mg PO DAILY RF: 0 cyanocobalamin (vitamin B-12) [Vitamin B-12] 100 MCG tablet 1 tab PO DIRECTED RF: 0 atorvastatin [Lipitor] 40 MG tablet 40 mg PO QPM RF: 0 omeprazole 20 MG capsule,delayed release(DR/EC) 20 mg PO DAILY@0730 RF: 0 furosemide 20 MG tablet 40 mg PO DAILY RF: 0 gabapentin 300 mg capsule 300 mg PO BID RF: 0 lisinopril 40 MG tablet 40 mg PO DAILY RF: 0 levothyroxine 125 mcg tablet 100 mcg PO DAILY RF: 0 Xarelto 15 mg Tablet 15 mg PO QPM RF: 0 metoprolol succinate 50 MG tablet extended release 24 hr 25 mg PO DAILY RF: 0 Discharge Instructions Stand Alone Forms: Bishnu Watts Tunnel Release Referrals: Pablito Goetz MD [ [facility] STAFF PHYSICIAN] - Activity:: Elevate Remove Dressings/Wound Care:: 72 hours Shower/Bathe:: 72 hours Discharge Orders Discharge Orders: Discharge Order (Routine); Ordered 01/24/20 Ordered By: Pablito Goetz DS: Diagnosis Discharge Diagnosis (1) Carpal tunnel syndrome, right: Status: Acute
[2020-01-24] MEDS: Lactated Ringers 1,000 ML 80 ML IV (07:28)
[2020-01-24] MEDS: ceFAZolin 2 GM/50 ML BAG IVPB (08:03)
[2020-01-24] MEDS: Sodium Bicarbonate 50 MEQ/50 ML VIAL (08:07)
[2020-01-24 08:55] VITALS: BP 127/64; PULSE 66; RESP 20; TEMP 36.3; O2SAT 98
--- NOTE | 2020-01-24 15:10 | ROE_ITS ---
Date of service: 01/24/20 Time of Service: 08:21 Operative Note Operative Note DATE OF PROCEDURE: 01/24/20 PRE-OP DIAGNOSIS: Right Carpal Tunnel Syndrome POST-OP DIAGNOSIS: same PROCEDURE: Right Endoscopic Carpal Tunnel Release SURGEON: Pablito Goetz ANESTHESIA: MAC ESTIMATED BLOOD LOSS: 0 PATHOLOGY: none sent TOURNIQUET TIME: 6 COMPLICATIONS: None Patient was transported to: same day Patient's condition: stable Indications: I have seen Alma Delia in clinic for symptoms of carpal tunnel syndrome. The numbness, tingling, and pain limited function. Clinical exam findings with nerve conduction tests confirmed the diagnosis of carpal tunnel syndrome. Nonoperative measures such as bracing, time, activity modifications had been tried but disability and pain persisted. I discussed carpal tunnel release with the patient. I reviewed the risks of the procedure to include, but not limited to, bleeding, infection, pain, stiffness, incomplete release, damage to nerves or vessels, persistent numbness, recurrence. Despite these risks, the patient elected to proceed. Findings: There was tightened carpal tunnel. This was dilated and released successfully with the endoscopic with increased space within the tunnel. The antebrachial fascia was released proximally freeing the median nerve at the wrist. Procedure Description: Alma Delia was greeted in the preoperative holding area where the correct side was identified and marked. The consent was reviewed with the patient and signed. The history and physical was updated. All questions were answered. She was taken back to the operating room. The patient was placed into the supine position on the operating room table with the right arm on an arm board. A nonsterile tourniquet was placed high onto the arm. All bony prominences were well padded. Prophylactic antibiotics in the form of Cefazolin were administered. The right arm was then prepped with Chloraprep and draped in a standard fashion with stockinette and extremity drape. A timeout to confirm correct identity, side and site, procedure, allergies, anesthesia, and medical concerns was performed. The surgical site was marked in the volar wrist creases in line with the radial border of the fourth ray. This area was anesthetized with approximately 6cc of 1% Lidocaine. The limb was then exsanguinated with an Esmarch. The skin was incised with a 15 blade, approximately 1cm. The skin only was cut and the deeper tissue was dissected bluntly with a tenotomy scissor, avoiding passing nerve and venous structures. The fascia was penetrated and opened bluntly. A two-prong skin hook was placed under this proximal fascial edge. A series of hamate finders were used to identify and dilate the carpal tunnel. Synovial elevator was used to free synovial attachments to the underside of the transverse carpal ligament. My thumb was kept in the palm to juan the distal extent of the carpal tunnel and correctly position the hand. The Microaire endoscope was inserted without difficulty and without resistance. Excellent vis ualization showed horizontally running fibers of the transverse carpal ligament (TCL). The distal extent of the TCL was visualized and the end of the scope palpated with the thumb. The blade was elevated and withdrawn from distal to proximal. The TCL was split into two flaps. The endoscope was reinserted to confirm complete release and any remnant ligament was incised. The scope was withdrawn and the proximal aspect of the carpal tunnel was grossly inspected and appeared release with the median nerve visible. The antebrachial fascia at the level of the wrist was then freed from the overlying skin and then the underlying median nerve with blunt dissection. This was transected longitudinally for about 3cm proximal to the wrist incision. The wound was then irrigated with easy flow of irrigant distally and proximally. The incision was closed with a single 4-0 Nylon suture. The wound was dressed with Xeroform, Gauze, Kerlix and Adal. The tourniquet was deflated with the initial dressing and held with some pressure. Blood flow returned easily to all digits with capillary refill less than 2 seconds. The patient tolerated the procedure well and was returned to the Same Day Surgery area in a stable condition suffering no known complication.
== END 2020-01-24 09:00 | disposition home or self-care (01) ==
PROVIDERS: PCP Family Medicine; Visit Provider Student in an Organized Health Care Education/Training Program
PROC: 01N54ZZ Release Median Nerve, Percutaneous Endoscopic Approach (ICD-10-PCS; CPT 29848; principal; 2020-01-24 07:45)
DX: G56.01 Carpal tunnel syndrome, right upper limb (principal)
CPT/HCPCS: 29848; J0690; J3010; L3650

== ENCOUNTER 2020-01-25 23:10 | Emergency (ER) | payer MEDICARE, BC, SELFPAY ==
[2020-01-25 23:15] VITALS: BP 178/71; PULSE 84; RESP 20; TEMP 37; O2SAT 96
--- NOTE | 2020-01-25 23:15 | ED.GENADUL_ITS ---
Discharge Plan Discharge Details Primary Care Provider: Ana Her ED Provider: Provider,Temporary Home Meds and New Rx's Prescriptions: No Action allopurinol 100 mg tablet 200 mg PO DAILY RF: 0 cholecalciferol (vitamin D3) 2,000 unit tablet 2,000 unit PO DAILY RF: 0 amlodipine 2.5 mg tablet 2.5 mg PO DAILY RF: 0 cyanocobalamin (vitamin B-12) [Vitamin B-12] 100 MCG tablet 1 tab PO DIRECTED RF: 0 atorvastatin [Lipitor] 40 MG tablet 40 mg PO QPM RF: 0 omeprazole 20 MG capsule,delayed release(DR/EC) 20 mg PO DAILY@0730 RF: 0 furosemide 20 MG tablet 40 mg PO DAILY RF: 0 gabapentin 300 mg capsule 300 mg PO BID RF: 0 lisinopril 40 MG tablet 40 mg PO DAILY RF: 0 levothyroxine 125 mcg tablet 100 mcg PO DAILY RF: 0 Xarelto 15 mg Tablet 15 mg PO QPM RF: 0 metoprolol succinate 50 MG tablet extended release 24 hr 25 mg PO DAILY RF: 0 acetaminophen 500 mg tablet 1,000 mg PO Q8H PRN (Reason: pain) Qty: 60 RF: 3 tramadol 50 mg tablet 50 mg PO Q6H PRNQty: 8 RF: 0 HPI General Mode of arrival: ambulatory . Date/Time Provider Initiated Documentation: 01/25/20 23:15 . Limitations to Documentation: no limitations . Information obtained by: patient, RN notes reviewed and old records reviewed . Related Data Home Medications Medication Instructions Recorded Confirmed atorvastatin [Lipitor] 40 mg PO QPM 06/13/13 01/24/20 omeprazole 20 mg PO DAILY@0730 06/13/13 01/24/20 cyanocobalamin (vitamin B-12) 1 tab PO DIRECTED 11/07/15 01/24/20 [Vitamin B-12] furosemide 40 mg PO DAILY 05/31/16 01/24/20 lisinopril 40 mg PO DAILY 06/02/16 01/24/20 allopurinol 100 mg tablet 200 mg PO DAILY tab 04/13/19 01/24/20 cholecalciferol (vitamin D3) 50 2,000 unit PO DAILY 04/13/19 01/24/20 mcg (2,000 unit) tablet gabapentin 300 mg capsule 300 mg PO BID cap 04/13/19 01/24/20 levothyroxine 125 mcg tablet 100 mcg PO DAILY tab 04/13/19 01/24/20 Xarelto 15 mg PO QPM 05/10/19 01/24/20 amlodipine 2.5 mg tablet 2.5 mg PO DAILY 01/02/20 01/24/20 metoprolol succinate 25 mg PO DAILY 01/20/20 01/24/20 acetaminophen 1,000 mg PO Q8H PRN #60 tab 01/24/20 tramadol 50 mg PO Q6H PRN #8 tab 01/24/20 Previous Rx's Medication Instructions Recorded acetaminophen 1,000 mg PO Q8H PRN #60 tab 01/24/20 tramadol 50 mg PO Q6H PRN #8 tab 01/24/20 Allergies Allergy/AdvReac Type Severity Reaction Status Date / Time No Known Allergies Allergy Unverified 01/24/20 07:04 General FRANCINE: 5 PFSH Medical History Aortic stenosis Arthritis Breast cancer left breast Chondrocalcinosis of left knee Injected: 01/03/2020 Chronic venous insufficiency Diabetes Glucose intolerance (impaired glucose tolerance) History of laminectomy HTN (hypertension) Hypothyroidism RACHAEL (obstructive sleep apnea) PUD (peptic ulcer disease) Surgical History Cholecystectomy Colonoscopy - [facility] (03/17/17) History of ankle surgery right w/ screws Trigger finger, left little finger s/p release 05/10/2019 Family History Grandmother Colon cancer Other Stroke Social History Smoking/Tobacco Use Status: Never Alcohol Intake: current Alcohol Intake frequency: holidays/special occasions only Alcohol type: beer, wine and hard liquor Drug use: Never Substance use type: does not use Current gender identity: female Do you feel safe at home: Yes Do you feel safe in your relationship?: Yes
--- NOTE | 2020-01-25 23:23 | ED.GENADUL_ITS ---
Discharge Plan Disposition Patient Disposition: HOME Condition: Good Discharge Details Clinical Impression: Skin irritation Primary Care Provider: Ana Her ED Provider: Fatuma Robison Home Meds and New Rx's Prescriptions: Continued allopurinol 100 mg tablet 200 mg PO DAILY RF: 0 cholecalciferol (vitamin D3) 2,000 unit tablet 2,000 unit PO DAILY RF: 0 amlodipine 2.5 mg tablet 2.5 mg PO DAILY RF: 0 cyanocobalamin (vitamin B-12) [Vitamin B-12] 100 MCG tablet 1 tab PO DIRECTED RF: 0 atorvastatin [Lipitor] 40 MG tablet 40 mg PO QPM RF: 0 omeprazole 20 MG capsule,delayed release(DR/EC) 20 mg PO DAILY@0730 RF: 0 furosemide 20 MG tablet 40 mg PO DAILY RF: 0 gabapentin 300 mg capsule 300 mg PO BID RF: 0 lisinopril 40 MG tablet 40 mg PO DAILY RF: 0 levothyroxine 125 mcg tablet 100 mcg PO DAILY RF: 0 Xarelto 15 mg Tablet 15 mg PO QPM RF: 0 metoprolol succinate 50 MG tablet extended release 24 hr 25 mg PO DAILY RF: 0 acetaminophen 500 mg tablet 1,000 mg PO Q8H PRN (Reason: pain) Qty: 60 RF: 3 tramadol 50 mg tablet 50 mg PO Q6H PRNQty: 8 RF: 0 Discharge Instructions Instructions: Contact Dermatitis (ED) Additional Instructions: Please continue to follow postoperative instructions. I did not see any evidence to suggest infection at this time. The area of redness was very localized suggesting more of a topical irritant. Please contact your surgeon tomorrow to discuss these current issues. Hopefully, by washing the skin tonight this irritant has been washed away and your symptoms improve. However, if you develop fever/chills, pain, warmth, drainage or other new/worsening symptom please seek care urgently once again. Referrals: Pablito Goetz MD [ [facility] - Medical Decision Making Patient is a pleasant 74-year-old female presents today with chief complaint of skin discoloration of postsurgical setting. Patient reports that she is 1 day status post right total release. States she continues to have some tingling. She comes in today after being concerned with an area of erythema she did see proximal to the dressing. This did prompt her to take her surgical dressings down. She denies any fevers or chills. States her pain is been minimal. States that the swelling in her hand has waxed and waned. She denies any pain over the area of erythema. On exam, patient appears nontoxic. She does not comfortably. She has a half- [place] well demarcated erythematous area proximal to the incision. The incision itself appears to be healing very well without any evidence of infection. She does have some swelling in the right hand but I feel that this is not excessive in the post surgical. I did encourage elevation is likely having him more dependent position contributed to swelling. The area of erythema has nontender, it is not warm. No fluctuance. Is most consistent with local skin irritation particularly given the time line of symptoms. Area around the incision, to include the area of irritation, was cleansed to help remove any skin irritants and redressed. She will contact her surgeon tomorrow to discuss her concerns. Return precautions were discussed. In particular, we discussed signs symptoms of infection. All of her questions and concerns were addressed and she is agreement this plan. HPI General Mode of arrival: ambulatory . Date/Time Provider Initiated Documentation: 01/25/20 23:15 . Limitations to Documentation: no limitations . Information obtained by: patient and RN notes reviewed . History of Present Illness 74 year old F presents to the emergency department with the chief complaint of redness to right forearm, described as mild, with intensity rated at 2. Quality is described as aching, and is localized to the right and upper extremity. Patient reports no radiation. Patient started experiencing this day(s) (carpal tunnel surgery yesterday) and it has been constant. No relieving factors improve symptom(s), No exacerbating factors reported . Patient notes rash; denies fever/chills. Patient did receive the following treatments prior to arrival, none Related Data Home Medications Medication Instructions Recorded Confirmed atorvastatin [Lipitor] 40 mg PO QPM 06/13/13 01/24/20 omeprazole 20 mg PO DAILY@0730 06/13/13 01/24/20 cyanocobalamin (vitamin B-12) 1 tab PO DIRECTED 11/07/15 01/24/20 [Vitamin B-12] furosemide 40 mg PO DAILY 05/31/16 01/24/20 lisinopril 40 mg PO DAILY 06/02/16 01/24/20 allopurinol 100 mg tablet 200 mg PO DAILY tab 04/13/19 01/24/20 cholecalciferol (vitamin D3) 50 2,000 unit PO DAILY 04/13/19 01/24/20 mcg (2,000 unit) tablet gabapentin 300 mg capsule 300 mg PO BID cap 04/13/19 01/24/20 levothyroxine 125 mcg tablet 100 mcg PO DAILY tab 04/13/19 01/24/20 Xarelto 15 mg PO QPM 05/10/19 01/24/20 amlodipine 2.5 mg tablet 2.5 mg PO DAILY 01/02/20 01/24/20 metoprolol succinate 25 mg PO DAILY 01/20/20 01/24/20 acetaminophen 1,000 mg PO Q8H PRN #60 tab 01/24/20 tramadol 50 mg PO Q6H PRN #8 tab 01/24/20 Previous Rx's Medication Instructions Recorded acetaminophen 1,000 mg PO Q8H PRN #60 tab 01/24/20 tramadol 50 mg PO Q6H PRN #8 tab 01/24/20 Allergies Allergy/AdvReac Type Severity Reaction Status Date / Time No Known Allergies Allergy Unverified 01/24/20 07:04 General Stated Complaint: Orthopedic FRANCINE: 3 Review of Systems Constitutional Constitutional: Reports as per HPI, Denies chills and Denies fever(s) Musculoskeletal Musculoskeletal: Reports as per HPI and Reports tingling (reports reason for yesterday's surgery) Integumentary/Breasts Skin/Breast: Reports as per HPI Neurologic Neurologic: Reports as per HPI, Denies sensory deficit and Reports tingling (reports reason for yesterday's surgery) FORMERLY [facility], [facility] Medical History Aortic stenosis Arthritis Breast cancer left breast Chondrocalcinosis of left knee Injected: 01/03/2020 Chronic venous insufficiency Diabetes Glucose intolerance (impaired glucose tolerance) History of laminectomy HTN (hypertension) Hypothyroidism RACHAEL (obstructive sleep apnea) PUD (peptic ulcer disease) Surgical History Cholecystectomy Colonoscopy - [facility] (03/17/17) History of ankle surgery right w/ screws Trigger finger, left little finger s/p release 05/10/2019 Family History Grandmother Colon cancer Other Stroke Social History Smoking/Tobacco Use Status: Never Alcohol Intake: current Alcohol Intake frequency: holidays/special occasions only Alcohol type: beer, wine and hard liquor Drug use: Never Substance use type: does not use Current gender identity: female Do you feel safe at home: Yes Do you feel safe in your relationship?: Yes Exam Const General: cooperative, healthy appearing, comfortable, no acute distress and well developed Nutritional Appearance: well nourished and overweight Orientation: alert and awake Resp Effort & Inspection: normal respiratory effort, able to speak in complete sentences and no respiratory distress Cardio Rate: regular rate Rhythm: regular rhythm Skin Full body images: 2 1. focal area of erythema with well demarcated edges in half [place] pattern. Nontender. No warmth. No discharge. No fluctuance. Incision distal to this, healing well without surrounding erythema, warmth, discharge. Palm of hand is tinted green consistent with surgical prep. Ecchymosis noted over thenar emminenance. Neuro General: patient alert and patient awake Cognition: normal cognition Speech: speech normal Gait: normal gait Sensory Exam: no sensory deficits noted Psych Appearance: grossly normal and well kempt Mental Status: mental status grossly normal Speech and Movement: speech and movement normal Course Vital Signs Vital signs: Vital Signs Temperature 37.0 C 01/25/20 23:15 Pulse 84 01/25/20 23:15 Respiratory Rate 01/25/20 23:15 Blood Pressure 178/71 H 01/25/20 23:15 Pulse Oximetry 96 01/25/20 23:15 Temperature 37.0 C 01/25/20 23:15 Temperature Source Temporal Artery Scan 01/25/20 23:15 Pulse 84 01/25/20 23:15 Respiratory Rate 01/25/20 23:15 Respiratory Effort 01/25/20 23:17 Blood Pressure 178/71 H 01/25/20 23:15 Pulse Oximetry 96 01/25/20 23:15 Oxygen Delivery Method Room Air 01/25/20 23:15 Oxygen Flow Rate 0 01/25/20 23:15 Pain Level 4 01/25/20 23:17
== END 2020-01-25 23:44 | disposition home or self-care (01) ==
PROVIDERS: Emergency Provider Physician Assistant; PCP Family Medicine
DX: L24.89 Irritant contact dermatitis due to other agents (principal); Y83.8 Other surgical procedures as the cause of abnormal reaction of the patient, or of later complication, without mention of misadventure at the time of the procedure; E11.9 Type 2 diabetes mellitus without complications; I10 Essential (primary) hypertension
CPT/HCPCS: 99282; 99283

== ENCOUNTER 2020-03-12 13:29 | Outpatient (REF) | payer MEDICARE, BC, SELFPAY ==
[2020-03-15 18:22] LABS: Patient Race White; SARS-CoV-2 RNA Undetected (Undetected); SARS-CoV-2 Specimen Source Nasal
== END 2020-03-12 13:49 ==
LOC: NCHCN 13:29
PROVIDERS: PCP Family Medicine; Visit Provider Nurse Practitioner Family
DX: Z11.59 Encounter for screening for other viral diseases (principal)
CPT/HCPCS: U0003

== ENCOUNTER 2020-03-23 18:26 | Outpatient (CLI) | payer MEDICARE, BC, SELFPAY ==
--- NOTE | 2020-03-23 14:40 | DI.MRI_ITS ---
EXAM: MR LUMBAR SPINE WO CLINICAL HISTORY: BACK PAIN M54.9, SPINAL STENOSIS M48.06, SCIATICA M54.32 M54.31, BILAT LEG. TECHNIQUE: Multiplanar multisequence MRI of the Lumbar spine was performed. COMPARISON: MR MRI - LUMBAR SPINE W/WO CONT from 10/14/2016 MR MRI - LUMBAR SPINE W/WO CONT from 10/14/2016 FINDINGS: Bones: The last intervertebral disc space is designated the L5/S1 level for the numbering purpose of this examination. There is an old L3 compression fracture deformity. There is now a horizontal low -attenuation line paralleling the superior endplate of L4 with associated marrow edema consistent wit h vertebral body fracture. There is minimal loss of height of the vertebral body. There is a jovanna ioma or fatty rest in the L1 and L2 vertebral bodies. Endplate degenerative changes are seen at mult iple levels of the lumbar spine. Alignment is satisfactory. The signal characteristics are unremarka ble. Cord: The conus tip ends at the L1 level. It is of normal size and signal intensity. T12-L1: No disc herniations or bulges are present. No central spinal canal or neural foraminal stenos is.No significant neural foraminal stenosis. L1-2: There is a diffuse disc bulge. Degenerative changes of the facets are noted resulting in mild narrowing of the central spinal canal.Mild bilateral neural foraminal stenosis. L2-3: There is a diffuse disc bulge. There are hypertrophic changes of the facets causing mild narro wing of the central spinal canal.Mild right and moderate left neural foraminal stenosis. L3-4: There is a diffuse disc bulge. There are hypertrophic changes of the facets and ligamentum fla vum. Mild central spinal canal stenosis is present.Moderate right and marked left neural foraminal s tenosis. L4-5: There is a diffuse disc bulge. There are are degenerative changes of the facets. There is hyp ertrophy of the ligamentum flavum. No significant central spinal canal stenosis is present.Marked ri ght and moderate left neural foraminal stenosis. L5-S1: There is a diffuse disc bulge. There are degenerative changes of the facets. No significant central spinal canal stenosis is seen. Moderate bilateral neural foraminal stenosis. Soft tissues: The visualized SI joints and sacrum are well maintained. The paraspinal soft tissues ar e unremarkable. IMPRESSION: 1. Subacute/acute fracture of the L4 vertebral body without significant loss of height. No retropuls ion into the central spinal canal is noted. 2. Marked degenerative changes of the lumbar spine resulting in multilevel central spinal canal and n eural foraminal stenosis as described above. DATA REPOSITORY:
== END 2020-03-23 18:46 ==
PROVIDERS: PCP Family Medicine; Visit Provider Family Medicine
DX: S32.048A Other fracture of fourth lumbar vertebra, initial encounter for closed fracture (principal); M47.816 Spondylosis without myelopathy or radiculopathy, lumbar region; M48.061 Spinal stenosis, lumbar region without neurogenic claudication
CPT/HCPCS: 72148

== ENCOUNTER → 2020-03-26 08:42 | Outpatient (BNVA) | payer MEDICARE, BC, SELFPAY | PROVIDERS: PCP Family Medicine; Referring Provider Family Medicine; Visit Provider Student in an Organized Health Care Education/Training Program | DX: Z47.89 Encounter for other orthopedic aftercare (principal); R20.2 Paresthesia of skin; E11.9 Type 2 diabetes mellitus without complications; I10 Essential (primary) hypertension ==

== ENCOUNTER → 2020-05-28 09:21 | Outpatient (BNVA) | payer MEDICARE, BC, SELFPAY | PROVIDERS: PCP Family Medicine; Visit Provider Student in an Organized Health Care Education/Training Program | DX: Z47.89 Encounter for other orthopedic aftercare (principal); R20.0 Anesthesia of skin | CPT/HCPCS: 99212; 99213 ==

== ENCOUNTER 2020-06-14 14:54 | Outpatient (REF) | payer MEDICARE, BC, SELFPAY ==
--- OUTSIDE RECORDS SUMMARY | 2020-06-14 14:58 | XMS_ITS ---
:1945 Author Care Team Providers Name Role Phone DR. ERICH WADE Primary Care Provider [phone] DR. ERICH WADE Referring Provider [phone] Allergies Code Code System Name Reaction Severity Status Onset NKDA ? Medications Name Status Start Date Stop Date ? ? allopurinol 100 mg tablet Active ? Not av ailable Take 1 tablet every day by oral route. ammonium lactate 12 % lotion Active ? Not available Apply 1 application twice a day by topical route. atenolol 100 mg tablet Active ? Not avail able Take 1 tablet every day by oral route. felodipine ER 2.5 mg tablet,extended release 24 hr Active ? Not available Take 1 tablet every day by oral route. gabapentin 600 mg tablet Active ? Not gino ilable Take 1 tablet 3 times a day by oral route. hydrochlorothiazide 25 mg tablet Active ? Not available Take 1 tablet every day by oral route. ibuprofen 600 mg tablet Active ? Not avai lable Take 1 tablet 3 times a day by oral route. Lipitor 40 mg tablet Active ? Not availab le Take 1 tablet every day by oral route. lisinopril 40 mg tablet Active ? Not avai lable Take 1 tablet every day by oral route. omeprazole 20 mg tablet,delayed release Active ? Not available Take 1 tablet every day by oral route. Synthroid 125 mcg tablet Active ? Not gino ilable Take 1 tablet every day by oral route. tramadol 50 mg tablet Active ? Not availa ble Take 1 tablet 4 times a day by oral route as needed. Problems Name Status Onset Date Source ? Hypothyroidism Active 03/13/2016 ? Type 2 Diabetes Mellitus Active 03/13/2016 ? Hyperlipidemia Active 03/13/2016 ? Gout Active 03/13/2016 ? Potassium Disorder Active 03/13/2016 ? Hypertensive Disorder Active 03/13/2016 ? Aortic Valve Stenosis Active 03/13/2016 ? Gastroesophageal Reflux Disease Active 03/13/2016 ? Ingrowing Toenail Active 03/13/2016 ? Spinal Stenosis Active 03/13/2016 ? Sleep Apnea Active 03/13/2016 ? Procedures None recorded. Results Lab Results None recorded. Past Encounters None recorded. Social History Tobacco Smoking Status Never Smoker Notes: 09/01/16 Vaccine List Vaccine Type Tdap 11/05/2010 Plan of Care Reminders Provider Appointments None ? ? recorded. Lab None ? ? recorded. Referral None ? ? recorded. Procedures None ? ? recorded. Surgeries None ? ? recorded. Imaging None ? ? recorded. Vitals 09/01/2016 02:15PM PODIATRY ACUTE Weight Blood Pressure 102.06 kg 144/78 mm[Hg] 04/22/2016 03:00PM NEW PATIENT Weight Blood Pressure 102.06 kg 160/90 mm[Hg]
[2020-06-14 15:20] LABS: Hemoglobin A1C 6.3 % (<5.7)
[2020-06-14 15:22] LABS: Anion Gap 6.1 mmol/L (3-11); BUN 37 mg/dL (7-18); CO2 30.9 mmol/L (21.0-32.0); CREATININE 1.2 mg/dL (0.55-1.02); Calcium 9.7 mg/dL (8.5-10.1); Chloride 103 mmol/L (98-107); Estimated GFR 43.91 (mL/min/1.73m2); Glucose 135 mg/dL (74-106); Potassium 4.8 mmol/L (3.5-5.1); Sodium 140 mmol/L (136-145)
== END 2020-06-14 14:55 | disposition home or self-care (01) ==
LOC: NCHCN 14:54
PROVIDERS: PCP Family Medicine; Visit Provider Family Medicine
DX: R60.0 Localized edema (principal); R73.03 Prediabetes
CPT/HCPCS: 80048; 83036; 83735

== ENCOUNTER 2020-07-05 08:45 | Outpatient (CLI) | payer MEDICARE, BC, SELFPAY ==
--- NOTE | 2020-07-05 06:00 | DI.RAD_ITS ---
EXAM: XR PAIN CLINIC LUMBAR SP 2V CLINICAL HISTORY: Dx:Lumbar Radiculopathy TECHNIQUE: 2D and realtime digital imaging was performed. CONTRAST MATERIAL: Refer to procedure report. COMPARISON: No exams were available for comparison FINDINGS: Fluoroscopy was provided for Dr. Omalley during the performance of a lumbar epidural steroid injection. Please refer to the procedure report for complete details. Fluoro time: 57.5 seconds IMPRESSION:
[2020-07-05 09:06] VITALS: BP 120/79; PULSE 74; RESP 17; TEMP 36.3; O2SAT 96
--- NOTE | 2020-07-05 09:53 | PDOC.PAIN ---
Pain Clinic Procedure Note Procedure Note Procedure Note: CAUDAL EPIDURAL STEROID WITH CATHETER INJECTION PROCEDURE NOTE COMMENTS: Previous lumbar spine surery, thus the reason for the caudal approach. I did review her recent evaluation in our clinic an her 03/23/20 lumbar spine MRI. Dx: Lumbosacral radiculopathy KODY KIMBROUGH has been referred to the [facility] for lumbar epidural steroid injection. Patient was greeted by the nurse who verified patients name and . Patient was then taken to the fluoroscopy suite. Patient was interviewed and the medical record reviewed. There were no medical, pharmacologic, radiographic, or other structural contraindications to attempting fluoroscopically guided lumbar epidural steroid injection. Risks and expected side effects as well as potential benefits of the procedure were reviewed and voiced concerns addressed. The patient consent form was signed and witnessed. Standard time-out procedure was performed. Patient was placed in the prone position on the fluoroscopy table and automated blood pressure cuff and pulse oximeter applied. The skin entry point for entering/approaching the epidural space at the Sacral Hiatus and marked. Following thorough chlorhexadine preparation of the skin and draping and 1% lidocaine infiltration of the skin entry point and subcutaneous tissues, a 17 gauge Touhy needle was placed under fluoroscopic guidance and with loss of resistance technique into the epidural space. Needle tip placement and depth were aided and confirmed by fluoroscopy. There was no paresthesia or return of blood or CSF through the needle. An Arrow cath was thread to the L5-S1 interspace and 1 cc's of Omnipaque 240 was injected with clear epidural spread confirmed with fluoroscopy. 80mg depomedrol was injected. There was not any unusual discomfort expressed. Vital signs were stable throughout the procedure and were as recorded in nursing records. Follow up plans and appointments were discussed.Post procedure instruction was given as documented in nursing records and having met discharge criteria and was discharged from the [facility]. COMMENTS: If she continues to have low back pain, she might be a candidate for Vertebroplasty/Kyphoplasty. Alfonso Omalley DO, MPH Pain Management
[2020-07-05 09:57] VITALS: BP 135/98; PULSE 86; RESP 18; O2SAT 97
[2020-07-05] MEDS: methylPREDNISolone ACETATE 80 MG/ML VIAL IJ (09:58)
[2020-07-05] MEDS: Omnipaque 240 MG/ML 50 ML BTL IJ (09:58)
== END 2020-07-05 08:46 | disposition home or self-care (01) ==
LOC: PC 08:46
PROVIDERS: PCP Family Medicine; Visit Provider Preventive Medicine Occupational Medicine
DX: M54.17 Radiculopathy, lumbosacral region (principal)
CPT/HCPCS: 62323; 72100; J1040; Q9967

== ENCOUNTER → 2020-07-30 09:52 | Outpatient (BNVA) | payer MEDICARE, BC, SELFPAY | PROVIDERS: PCP Family Medicine; Visit Provider Student in an Organized Health Care Education/Training Program | DX: Z47.89 Encounter for other orthopedic aftercare (principal); M65.322 Trigger finger, left index finger | CPT/HCPCS: 99213 ==

== ENCOUNTER 2020-08-13 10:00 | Outpatient (CLI) | payer MEDICARE, BC, SELFPAY | END 2020-08-13 10:01 | LOC: OCO 08-16 13:01 | PROVIDERS: PCP Family Medicine; Visit Provider Physician Assistant | DX: M65.322 Trigger finger, left index finger (principal) | CPT/HCPCS: 20550; J1030 ==

== ENCOUNTER 2020-10-05 10:37 | Outpatient (REF) | payer MEDICARE, BC, SELFPAY ==
--- OUTSIDE RECORDS SUMMARY | 2020-10-05 10:45 | XMS_ITS ---
:1945 Author Care Team Providers Name Role Phone DR. ERICH WADE Primary Care Provider [phone] DR. ERICH WADE Referring Provider [phone] Allergies Code Code System Name Reaction Severity [...] None ? ? recorded. Vitals 09/01/2016 02:15PM ACUTE Weight Blood Pressure 102.06 kg 144/78 mm[Hg] 04/22/2016 03:00PM NEW PATIENT Weight Blood Pressure 102.06 kg 160/90 mm[Hg]
[2020-10-05 18:47] LABS: Anion Gap 7.6 mmol/L (3-11); BUN 32 mg/dL (7-18); CO2 26.4 mmol/L (21.0-32.0); CREATININE 1.3 mg/dL (0.55-1.02); Calcium 9.6 mg/dL (8.5-10.1); Chloride 106 mmol/L (98-107); Estimated GFR 39.93 (mL/min/1.73m2); Glucose 121 mg/dL (74-106); Potassium 5.1 mmol/L (3.5-5.1); Sodium 140 mmol/L (136-145)
[2020-10-05 18:48] LABS: Hemoglobin A1C 5.8 % (<5.7)
[2020-10-05 19:20] LABS: Microalb ug/mg Crea 19.2 ug/mg Cr
== END 2020-10-05 10:38 | disposition home or self-care (01) ==
LOC: NCHCN 10:37
PROVIDERS: PCP Family Medicine; Visit Provider Family Medicine
DX: R73.03 Prediabetes (principal); I10 Essential (primary) hypertension; N18.30 Chronic kidney disease, stage 3 unspecified
CPT/HCPCS: 80048; 82043; 82570; 83036

== ENCOUNTER 2021-02-18 10:38 | Outpatient (REF) | payer MEDICARE, BC, SELFPAY ==
[2021-02-18 14:46] LABS: HCT 36.3 % (36.0-46.0); HGB 12.3 g/dL (11.2-15.7); MCH 33.8 pg (27.0-33.0); MCHC 33.9 % (32.0-36.0); MCV 99.7 fL (80-95); MPV 11.9 fL (8.0-11.0); Platelet Count 170 10^3/uL (130-400); RBC 3.64 10^6/uL (3.93-5.22); RDW 13.2 % (11.7-14.6); RDW-SD 48.1 fL; WBC 8.45 10^3/uL (4.4-10.8)
[2021-02-18 15:57] LABS: ALT 23 U/L (14-59); AST 14 U/L (15-37); Albumin 4.4 g/dL (3.4-5.0); Alkaline Phosphatase 76 U/L (46-116); Anion Gap 12.1 mmol/L (3-11); BUN 23 mg/dL (7-18); Bilirubin, Total 0.9 mg/dL (0.2-1.0); CO2 26.9 mmol/L (21.0-32.0); CREATININE 1.1 mg/dL (0.55-1.02); Calcium 9.3 mg/dL (8.5-10.1); Chloride 102 mmol/L (98-107); Estimated GFR 48.42 (mL/min/1.73m2); Glucose 138 mg/dL (74-106); Sodium 141 mmol/L (136-145); TSH (W/Ref FT4) 1.06 uIU/mL (0.36-3.74); Total Protein 6.8 g/dL (6.4-8.2)
== END 2021-02-18 10:39 | disposition home or self-care (01) ==
LOC: NCHCN 10:38
PROVIDERS: PCP Family Medicine; Visit Provider Family Medicine
DX: I10 Essential (primary) hypertension (principal); E03.9 Hypothyroidism, unspecified; N18.30 Chronic kidney disease, stage 3 unspecified
CPT/HCPCS: 80053; 85027; 84443

== ENCOUNTER 2021-02-28 02:13 | Outpatient (CLI) | payer MEDICARE, BC, SELFPAY ==
--- NOTE | 2021-03-18 08:44 | CER_ITS ---
Date of service: 03/18/21 Time of Service: 08:44 Cardiac Event Recorder Referring Provider:: Ana Her Indications:: Unspecified atrial fibrillation Cardiac Event Note: This is a 14-day environmental monitoring specialist, reportedly ordered for atrial fibrillation Predominant rhythm was sinus with an average heart rate of 72. Minimum was 48 and maximum 109 There were rare ventricular ectopic beats. There was no ventricular tachycardia There were rare atrial premature beats. There were multiple self-limited atrial runs, the longest of which was 19 beats in duration. There was no atrial fibrillation, no high-grade AV block, no pauses greater than 3 seconds. No patient symptoms were reported
== END 2021-02-28 02:14 | disposition home or self-care (01) ==
LOC: RT 02:13
PROVIDERS: PCP Family Medicine; Visit Provider Family Medicine
DX: I48.91 Unspecified atrial fibrillation (principal)
CPT/HCPCS: 93246

== ENCOUNTER 2021-03-18 08:44 | Outpatient (CLI) | payer MEDICARE, BC, SELFPAY | END 2021-03-18 08:45 | LOC: CARDO 03-19 11:49 | PROVIDERS: PCP Family Medicine; Referring Provider Family Medicine; Visit Provider Internal Medicine Cardiovascular Disease | DX: I48.91 Unspecified atrial fibrillation (principal); I49.1 Atrial premature depolarization | CPT/HCPCS: 93272 ==

== ENCOUNTER 2021-06-21 15:40 | Outpatient (REF) | payer MEDICARE, BC, SELFPAY ==
[2021-06-21 15:47] LABS: HCT 38.2 % (36.0-46.0); HGB 12.5 g/dL (11.2-15.7); MCH 33.2 pg (27.0-33.0); MCHC 32.7 % (32.0-36.0); MCV 101.3 fL (80-95); MPV 12.1 fL (8.0-11.0); Platelet Count 160 10^3/uL (130-400); RBC 3.77 10^6/uL (3.93-5.22); RDW 12.7 % (11.7-14.6); RDW-SD 47.7 fL; WBC 8.66 10^3/uL (4.4-10.8)
[2021-06-21 16:13] LABS: Anion Gap 9.8 mmol/L (3-11); BUN 26 mg/dL (7-18); CO2 28.2 mmol/L (21.0-32.0); CREATININE 1.1 mg/dL (0.55-1.02); Calcium 9.2 mg/dL (8.5-10.1); Calculated LDL 81 mg/dL (<100); Chloride 102 mmol/L (98-107); Cholesterol 144 mg/dL (<200); Estimated GFR 48.42 (mL/min/1.73m2); Ferritin 128 ng/mL (8-252); Glucose 168 mg/dL (74-106); HDL Cholesterol 42 mg/dL (40-60); Potassium 4.1 mmol/L (3.5-5.1); Sodium 140 mmol/L (136-145); Triglyceride 105 mg/dL (<150)
[2021-06-21 16:23] LABS: Uric Acid 5.1 mg/dL (2.6-6.0)
== END 2021-06-21 15:41 | disposition home or self-care (01) ==
LOC: NCHCN 15:40
PROVIDERS: PCP Family Medicine; Visit Provider Family Medicine
DX: I10 Essential (primary) hypertension (principal); E78.5 Hyperlipidemia, unspecified; N18.30 Chronic kidney disease, stage 3 unspecified; M1A.0790 Idiopathic chronic gout, unspecified ankle and foot, without tophus (tophi); E11.9 Type 2 diabetes mellitus without complications
CPT/HCPCS: 80048; 80061; 85027; 82728; 83036; 84550

== ENCOUNTER → 2021-08-08 12:40 | Outpatient (CLI) | payer MEDICARE, BC, SELFPAY ==
--- NOTE | 2021-08-08 | DI.RAD_ITS ---
Exam(s) XR CHEST 2V PA LATERAL EXAM: XR CHEST 2V PA LATERAL CLINICAL HISTORY: ACUTE COUGH R05.1 TECHNIQUE: 2D digital imaging was performed of the chest. Two images were obtained. PA and lateral views were obtained. COMPARISON: CR XR CHEST 2V PA LATERAL from 04/28/2018 FINDINGS: MEDIASTINUM: There is a rounded soft tissue mass seen in the inferior mediastinum. It may represent a hiatal hernia. On the lateral view, however, there is a smaller rounded density seen at the anteri or inferior chest. These areas should be further evaluated with a CT scan of the chest. HEART: The heart is mildly enlarged. PULMONARY VASCULATURE: Normal. LUNGS: Clear. PLEURAL SPACE: No pleural effusion or pneumothorax. BONE:Within normal limits for the patient's age. OTHER FINDINGS:Normal. IMPRESSION: Findings in the mediastinum as described above. A CT scan of the chest is recommended for further ev aluation. DATA REPOSITORY: RADIATION DOSE DELIVERED:
--- OUTSIDE RECORDS SUMMARY | 2021-08-08 12:49 | XMS_ITS ---
:1945 Author Care Team Providers Name Role Phone DR. ERICH WADE Primary Care Provider [phone] DR. ERICH WADE Referring Provider [phone] Allergies Code Code System Name Reaction Severity [...]
--- OUTSIDE RECORDS SUMMARY | 2021-08-08 12:49 | XMS_ITS | Continuity of Care Document ---
:1945 Author Organization [facility] [employer] [facility] Support Name Relationship Address Phone UF Family Provider Unavailable Unavailable ivis Primary Care Provider Unavailable Unavailhellen Jimenez Emergency Provider [address] [place] [id number] Allergies, Adverse Reactions, Alerts No known allergies. Medications No medication information available. Problem List Active Problems Medical Problem Onset Date Status Fall Active Procedures Procedure Date Status CT chest wo con August 23, [address] head/brain wo con August 23, 2018 completed XR chest pa & lat August 23, 2018 completed Relevant Diagnostic Tests and/or Laboratory Data Laboratory Results Test Date/Time Result Interp. Ref. Range Result Comment Prothrombin Time June 14, 22.0 Sec High 12.1-14.6 2018 9:21am Prothromb Time June 14, 1.92 Therapeu tic Range for Oral Anticoagulant Therapy International Ratio 2018 9:21am 2.3-3.0 Advance Directives Advance Directive Response Recorded Date/Time Date Patient Queried 08/23/18 August 23, 2018 9:25 am Does the patient have a Healthcare Proxy? No August 23, 2018 9:25am Chief Complaint and Reason for Visit Encounter Admit Date Chief Complaint Reason for Visit Departed Emergency August 23, 2018 8:52am RIGHT FLANK PAIN RADIAT ING TO BACK S/P FALL Hospital Discharge Instructions Additional Discharge Instructions You were seen for ev aluation after a fall. Your CT scan did not show any fractu re. Your pain is likely from bruising from the fall and should improve over the next week. Please take a cetaminophen (Tylenol) 1,000mg every 8 hours. Retur n if you develop fevers, difficulty breathing , any other concerns No Instructions/Education Provided Encounters Encounter Facility Location Admit/Visit Discharge/Departure Atte nding Date Date Provider Departed [facility] August 23, 2018 August 23, 2018 2:36p m Emergency [facility] 8:52am [facility] Department Departed [facility] June 14June 14, 2018 Otilio mclain [facility]???2018 9:20am 9:21am Giovani manuel boratory Departed [facility] May 24, May 24, 2018 Danielle lama, [facility]???2018 9:43am 9:44am Giovani lymbaldevh boratory Departed [facility] May 17, May 17, 2018 Danielle lama, [facility]???2018 10:26am 10:27am Giovani lymbaldevh boratory Departed [facility] May 12, May 12, 2018 Javon [facility]???2018 11:07am 11:08am Giovani lymouth boratory Departed [facility] April 09, April 09, 2018 Danielle lama, [facility]???2017 9:43am 9:44am Giovani kaydenh stanatory Departed [facility] March 29, March 29, 2018 Otilio mclain [facility]???2017 9:41am 9:42am Giovani kaydenh stanatory Registered [facility] December 28, TARAH [facility]???2017 9:39am lymbaldevh gerard Functional Status Query Response Date Recorded Comment Patient Orientation Oriented x3 August 23, 2018 9:53am Immunizations No known immunizations. Payers Payer Name Policy Type Covered Covered Relationship Subscriber Sub scriber Id Constitution Party Constitution Party Id [employer] [id number] Self/Same as [id number] Patient Medicare Medicare [id number] Self/Same as [id number] Primary 4 Patient Self Pay Personal Payment (Diaz - No Insurance) Plan of Care No Known Plan of Care Information Social History Query Response Date Recorded Comment Has the patient smoked within the past 30 days No A pril 2018 9:53am Vital Signs Vital Reading Result Reference Range Collection Date/ Time Height 5 ft 7 in August 23, 2018 8 :57am Weight 99.1 kg August 23, 2018 8 :57am Temperature 98.1 F 97.5 F-99.3 F August 23, 2018 2 :31pm Pulse 66 BPM 60-90 August 23, 2018 2 :31pm Respiration 18 RPM 12-20 August 23, 2018 2 :31pm Pulse Oximetry 98 % 95-100 August 23, 2018 2 :31pm Blood Pressure Systolic 130 100-160 August 2:31pm Blood Pressure Diastolic 74 60-90 August 032018 2:31pm Body Mass Index n/a
== END ==
PROVIDERS: PCP Family Medicine; Visit Provider Nurse Practitioner Family
DX: R05.1 Acute cough (principal); R91.8 Other nonspecific abnormal finding of lung field; I51.7 Cardiomegaly
CPT/HCPCS: 71046

== ENCOUNTER 2021-08-12 18:51 | Outpatient (REF) | payer MEDICARE, BC, SELFPAY ==
[2021-08-14 11:59] LABS: COVID-19 RT-PCR UVMMC Result Negative (Negative)
== END 2021-08-12 18:52 | disposition home or self-care (01) ==
LOC: NCHCN 18:51
PROVIDERS: PCP Family Medicine; Visit Provider Family Medicine
DX: Z20.822 Contact with and (suspected) exposure to COVID-19 (principal); J06.9 Acute upper respiratory infection, unspecified
CPT/HCPCS: U0003; U0005

== ENCOUNTER 2021-08-24 13:55 | Emergency (ER) | payer MEDICARE, BC, SELFPAY ==
[2021-08-24 14:00] VITALS: BP 178/114; PULSE 94; RESP 16; TEMP 36.7; O2SAT 96
--- NOTE | 2021-08-24 14:08 | ED.GENADUL_ITS ---
Discharge Plan Disposition Patient Disposition: HOME Condition: Stable Discharge Details Clinical Impression: Left knee sprain Primary Care Provider: Ana Her ED Provider: Isabella Thorpe Home Meds and New Rx's Prescriptions: New hydrocodone-acetaminophen 5-325 mg tablet 1 tab PO Q6H PRN (Reason: pain) Qty: 10 0RF Continued anastrozole 1 mg Tablet 1 mg PO DAILY 0RF calcium carbonate 600 mg calcium (1,500 mg) Tablet 600 mg PO DAILY 0RF ascorbic acid (vitamin C) [Vitamin C] 500 mg Tablet 500 mg PO DAILY 0RF ferrous sulfate 325 mg (65 mg iron) Tablet 325 mg PO DAILY 0RF magnesium 250 mg Tablet 250 mg PO BID 0RF allopurinol 100 mg tablet 200 mg PO DAILY 0RF Label Comments: 02.11.17 Pt states down to Qday.HE cholecalciferol (vitamin D3) 2,000 unit tablet 2,000 unit PO DAILY 0RF gabapentin 300 mg capsule 300 mg PO BID 0RF Rx Instructions: no abrupt cessation carvedilol 6.25 mg tablet 6.25 mg PO BID 0RF Rx Instructions: must administer with a meal/food spironolactone 25 mg tablet 25 mg PO DAILY 0RF turmeric 400 mg capsule PO 0RF cyanocobalamin (vitamin B-12) [Vitamin B-12] 100 MCG tablet 1 tab PO DIRECTED 0RF atorvastatin [Lipitor] 40 MG tablet 40 mg PO QPM 0RF omeprazole 20 MG capsule,delayed release(DR/EC) 20 mg PO DAILY@0730 0RF furosemide 20 MG tablet 40 mg PO DAILY 0RF Label Comments: not sure of dose lisinopril 40 MG tablet 40 mg PO DAILY 0RF levothyroxine 125 mcg tablet 100 mcg PO DAILY 0RF Xarelto 15 mg Tablet 15 mg PO QPM 0RF acetaminophen 500 mg tablet 1,000 mg PO Q8H PRN (Reason: pain) Qty: 60 3RF tramadol 50 mg tablet 50 mg PO Q6H PRNQty: 8 0RF Discharge Instructions Instructions: Knee Sprain (ED) Additional Instructions: Rest, ice, and elevate the affected area as much as possible. Take Tylenol or tramadol that you have at home as needed and directed for pain. Take the Vicodin for pain not relieved with Tylenol or tramadol. Be sure not to take tramadol and Vicodin together as it can slow down his breathing. Be sure not to take more than 3000 mg of Tylenol daily. Keep a knee brace in place until you follow-up with orthopedics. Use your cane to limit weightbearing on your left leg. Call the orthopedics office on Thursday morning to schedule a follow-up appointment for reevaluation. Return immediately to the emergency department if you develop any worsening or new concerning symptoms. Referrals: Pablito Goetz MD [ [facility] STAFF PHYSICIAN] - Discharge Data Discharge Physician: Isabella Thorpe Medical Decision Making 76-year-old female presents with left knee pain after twisting her injury when losing her balance when walking earlier today. BP hypertensive 178/114. Patient appears uncomfortable. She has pain with range of motion most specifically with varus stress but no obvious ligamentous laxity, deformity, cellulitis or evidence of trauma. Patient referred for x-ray which noted small suprapatellar effusion. She was given a dose of tramadol with some relief. A knee immobilizer was ordered to help with compression and pain. She has a cane that she uses and declined crutches. She was also given an Adal wrap. Patient placed on orthopedic follow-up list. Advised to keep the brace in place until follow-up with orthopedics. Usual and customary return precautions given prior to discharge. Patient attempted to ambulate using her cane but was unable. We will give Vicodin now as well as prescription. She was provided with a walker. She was advised to limit weightbearing and be sure to rest, ice and elevate as much as possible over the next 2 days. Discussed that I do not see an indication for additional imaging such as CT as she has no report of blunt injury making fracture less likely. Patient states she would like to go home to be able to rest her leg. She has her 2 sons that can help her at home. Medical Records Medical records reviewed: Yes I reviewed the patient's medical records. Imaging Data Radiologic Study: Radiologist's impression: XR Left Knee Exam date and time: 08/24/2021 2:52 PM Age: 76 years old Clinical indication: Injury or trauma; Other: Twisting injury; Sprain or strain; Patella or knee; Left TECHNIQUE: Imaging protocol: XR Left knee. Views: 3 views. COMPARISON: CR XR KNEE LT 3V AP,LAT,SORAYA 01/02/2020 11:03 AM FINDINGS: Bones/joints: No acute fracture or dislocation. There is mild chondrocalcinosis in the lateral knee compartment. A small suprapatellar effusion is suspected. Soft tissues: Normal. IMPRESSION: 1. Small suprapatellar effusion. 2. No acute osseous abnormality. HPI General Mode of arrival: ambulatory . Date/Time Provider Initiated Documentation: 08/24/21 14:06 . Limitations to Documentation: no limitations . Information obtained by: patient . HPI Narrative: Patient is a 76-year-old female presents with left knee pain after twisting her knee when she was walking outside and lost her balance. Patient states she has a history of chronic balance issues for which she uses a cane at times. Patient states she was not using her cane at the time when she twisted her knee. She denies any direct blunt injury or fall onto her knee. She has not taken a medication for pain. Related Data Home Medications Medication Instructions Recorded Confirmed atorvastatin 40 mg tablet (Lipitor) 40 mg PO QPM 06/13/13 07/05/20 omeprazole 20 mg capsule,delayed 20 mg PO DAILY@0730 06/13/13 07/05/20 release cyanocobalamin (vitamin B-12) 100 1 tab PO DIRECTED 11/07/15 07/05/20 mcg tablet (Vitamin B-12) furosemide 20 mg tablet 40 mg PO DAILY 05/31/16 07/05/20 lisinopril 40 mg tablet 40 mg PO DAILY 06/02/16 07/05/20 allopurinol 100 mg tablet 200 mg PO DAILY tab 04/13/19 07/05/20 cholecalciferol (vitamin D3) 50 2,000 unit PO DAILY 04/13/19 07/05/20 mcg (2,000 unit) tablet levothyroxine 125 mcg tablet 100 mcg PO DAILY tab 04/13/19 07/05/20 rivaroxaban 15 mg tablet (Xarelto) 15 mg PO QPM 05/10/19 07/05/20 acetaminophen 500 mg tablet 1,000 mg PO Q8H PRN #60 tab 01/24/20 07/05/20 tramadol 50 mg tablet 50 mg PO Q6H PRN #8 tab 01/24/20 07/05/20 anastrozole 1 mg tablet 1 mg PO DAILY 04/19/20 07/05/20 ascorbic acid (vitamin C) 500 mg 500 mg PO DAILY 04/19/20 07/05/20 tablet (Vitamin C) calcium carbonate 600 mg calcium 600 mg PO DAILY 04/19/20 07/05/20 (1,500 mg) tablet ferrous sulfate 325 mg (65 mg 325 mg PO DAILY 04/19/20 07/05/20 iron) tablet magnesium 250 mg tablet 250 mg PO BID 04/19/20 07/05/20 carvedilol 6.25 mg tablet 6.25 mg PO BID 05/28/20 07/05/20 gabapentin 300 mg capsule 300 mg PO BID cap 05/28/20 07/05/20 spironolactone 25 mg tablet 25 mg PO DAILY 05/28/20 07/05/20 turmeric 400 mg capsule mg PO 07/30/20 hydrocodone 5 mg-acetaminophen 325 1 tab PO Q6H PRN #10 tab 08/24/21 mg tablet Previous Rx's Medication Instructions Recorded acetaminophen 500 mg tablet 1,000 mg PO Q8H PRN #60 tab 01/24/20 tramadol 50 mg tablet 50 mg PO Q6H PRN #8 tab 01/24/20 hydrocodone 5 mg-acetaminophen 325 1 tab PO Q6H PRN #10 tab 08/24/21 mg tablet Allergies Allergy/AdvReac Type Severity Reaction Status Date / Time No Known Allergies Allergy Unverified 08/24/21 14:04 General Stated Complaint: Orthopedic FRANCINE: 4 Review of Systems All systems reviewed & are unremarkable except as noted in HPI and below Constitutional Constitutional: Reports as per HPI, Denies chills and Denies fever(s) Eyes Eyes: Denies blurry vision ENT Ears, Nose, Mouth, and Throat: Denies dizziness, Denies sore throat and Denies throat swelling Cardiovascular Cardiovascular: Denies chest pain and Denies dyspnea Respiratory Respiratory: Denies cough and Denies dyspnea Gastrointestinal Gastrointestinal: Denies abdominal pain, Denies diarrhea and Denies vomiting Genitourinary Genitourinary: Denies hematuria and Denies dysuria Musculoskeletal Musculoskeletal: Denies back pain and Denies numbness Integumentary/Breasts Skin/Breast: Denies lesions and Denies rash Neurologic Neurologic: Denies dizziness, Denies localized weakness and Denies numbness Allergic/Immunologic Allergic/Immunologic: Denies throat swelling PFSH All Active Problems (Updated 08/24/21 @ 15:42 by Isabella Thorpe DO) Left knee sprain (Acute) Trigger finger, left index finger (Acute) Depo-Medrol injection: 08/13/2020 History of carpal tunnel surgery of right wrist (Acute 01/24/20) Chondrocalcinosis of left knee (Acute) Injected: 01/03/2020 Medical History Acute back pain with sciatica Afib Anemia Anemia, iron deficiency Aortic stenosis Arthritis Back pain Breast cancer left breast Carpal tunnel syndrome Cervical polyp Chondrocalcinosis of left knee Injected: 01/03/2020 Chronic pain of left lower extremity Chronic venous insufficiency CKD (chronic kidney disease) stage 3, GFR 30-59 ml/min Diabetes COLÓN (dyspnea on exertion) Fatigue GERD (gastroesophageal reflux disease) Glucose intolerance (impaired glucose tolerance) Gout of ankle History of laminectomy HTN (hypertension) Hyperlipidemia Hypothyroidism Leg cramps RACHAEL (obstructive sleep apnea) Osteopenia Peripheral neuropathy PUD (peptic ulcer disease) Sleep apnea SOB (shortness of breath) Spinal stenosis, lumbar Trigger finger, left index finger Depo-Medrol injection: 08/13/2020 Trigger finger, right ring finger Venous stasis Surgical History Cholecystectomy Colonoscopy - MAC (03/17/17) H/O lumbosacral spine surgery Lumbar Foraminotomy L4 History of ankle surgery right w/ screws History of carpal tunnel surgery of right wrist (01/24/20) Trigger finger, left little finger s/p release 05/10/2019 Family History Grandmother Colon cancer Other Stroke Social History (Updated 05/02/20 @ 09:56 by Vanessa Melvin) Smoking/Tobacco Use Status: Never Smoking risk assessment performed?: Yes Alcohol Intake: current Alcohol Intake frequency: a few times a week Alcohol type: beer, wine and hard liquor Drug use: Never Substance use type: does not use Household members: none Housing: house Number of Children: 2 current occupation: Retired Current gender identity: female What type of physical activity do you participate in: independent ambulation Do you feel safe at home: Yes Do you feel safe in your relationship?: Yes Exam Const General: cooperative, healthy appearing and no acute distress Orientation: alert, awake and oriented x3 HENMT Head: normal to inspection Mouth: oral mucosae normal Eyes General: appearance normal, both eyes and all related structures Neck Neck: normal visual inspection Resp Effort & Inspection: normal respiratory effort and able to speak in complete sentences Cardio Rate: regular rate Skin General skin exam: no rashes or lesions noted Neuro General: patient alert, patient awake and patient oriented x3 Motor: muscle tone normal throughout Extrem Other: Left lower extremity: Pain in lateral knee with varus stress. No pain with valgus stress. Negative anterior and posterior drawer test. Negative Yanez's test. Left anterior knee normal to inspection without edema, erythema, ecchymosis. No significant tende rness to palpation to the exterior anterior or posterior knee. Left DP/PT pulses intact. Psych Appearance: grossly normal Affect: normal affect Course Vital Signs Vital signs: Vital Signs Temperature 98.1 F 08/24/21 14:00 Pulse 94 H 08/24/21 14:00 Respiratory Rate 16 08/24/21 14:00 Blood Pressure 178/114 H 08/24/21 14:00 Pulse Oximetry 96 08/24/21 14:00 Temperature 98.1 F 08/24/21 14:00 Temperature Source Skin 08/24/21 14:00 Pulse 94 H 08/24/21 14:00 Respiratory Rate 16 08/24/21 14:00 Respiratory Effort 08/24/21 14:05 Blood Pressure 178/114 H 08/24/21 14:00 Blood Pressure Position Sitting 08/24/21 14:00 Pulse Oximetry 96 08/24/21 14:00 Oxygen Delivery Method Room Air 08/24/21 14:00 Oxygen Flow Rate 0 08/24/21 14:00 Pain Level 10 08/24/21 14:00 Comment 08/24/21 14:00 PAWSS Have you Been Recently Intoxicated or Drunk Within the Last 30 days?: No Have you Ever Experienced Previous Episodes of Alcohol Withdrawal?: No Have you ever Experienced Withdrawal Seizures?: No Have you ever Experienced Delirium Tremens(DT)s?: No Have you ever undergone Alcohol Rehabilitation Treatment (i.e, inpt ot outpatient treatment programs)?: No Have you ever Experienced Blackouts?: No Have you ever Combined Alcohol with other Downers within the last 90 days?: No Have you ever Combined Alcohol with any other Substance of Abuse during the last 90 days?: No Positive Blood Alcohol level on Presentation? [PCS.BAL]: No Evidence of Increased Autonomic Activity (i.e. HR>120, tremor, sweating, agitation, nausea)?: No Result: 0
--- NOTE | 2021-08-24 14:30 | DI.RAD_ITS ---
Exam(s) XR KNEE LT 3V AP,LAT,SORAYA EXAM: XR KNEE LT 3V AP,LAT,SORAYA CLINICAL HISTORY: s/p twisting injury, r/o effusion/fx TECHNIQUE: COMPARISON: CR XR KNEE LT 3V AP,LAT,SORAYA from 01/02/2020 FINDINGS: Three views were obtained. There is a probable small knee joint effusion. There is no evidence of a cute fracture or dislocation. IMPRESSION: RADIATION DOSE DELIVERED: Total DLP
[2021-08-24] MEDS: traMADol 50 MG TAB PO (14:40)
--- NOTE | 2021-08-24 15:32 | DI.VRAD_ITS ---
PROCEDURE INFORMATION: Exam: XR Left Knee Exam date and time: 08/24/2021 2:52 PM Age: 76 years old Clinical indication: Injury or trauma; Other: Twisting injury; Sprain or strain; Patella or knee; Left TECHNIQUE: Imaging protocol: XR Left knee. Views: 3 views. COMPARISON: CR XR KNEE LT 3V AP,LAT,SORAYA 01/02/2020 11:03 AM FINDINGS: Bones/joints: No acute fracture or dislocation. There is mild chondrocalcinosis in the lateral knee compartment. A small suprapatellar effusion is suspected. Soft tissues: Normal. IMPRESSION: 1. Small suprapatellar effusion. 2. No acute osseous abnormality. Dictated and Authenticated by: Rica Boyd MD. Ordering:MAIA Mason MD
[2021-08-24] MEDS: HYDROcodone 5/Acetaminophen 325 TAB PO (16:38)
[2021-08-24 17:16] VITALS: TEMP 37.1
== END 2021-08-24 17:03 | disposition home or self-care (01) ==
PROVIDERS: Emergency Provider Physician Assistant; PCP Family Medicine
DX: S83.92XA Sprain of unspecified site of left knee, initial encounter (principal); X50.1XXA Overexertion from prolonged static or awkward postures, initial encounter; E11.22 Type 2 diabetes mellitus with diabetic chronic kidney disease; N18.30 Chronic kidney disease, stage 3 unspecified; I10 Essential (primary) hypertension
CPT/HCPCS: 29505; 73562; 99284

== ENCOUNTER 2021-09-03 00:31 | Outpatient (CLI) | payer MEDICARE, BC, SELFPAY ==
[2021-09-03 08:37] LABS: CREATININE 1.1 mg/dL (0.55-1.02); Estimated GFR 48.29 (mL/min/1.73m2)
--- NOTE | 2021-09-03 09:47 | DI.CT_ITS ---
Exam(s) CT CHEST W EXAM: CT CHEST W CLINICAL HISTORY: F/U FINDINGS ON ABNL CXR 08/08/2021, R91.8. TECHNIQUE: Multi planar reconstructions were performed. CONTRAST MATERIAL: Omnipaque 350; 75 cc COMPARISON: CR XR CHEST 2V PA LATERAL from 08/08/2021 FINDINGS: CHEST: LUNGS: There is a small 3 millimeter nodule in the right lower lobe (series 2/image 39). There are n o other focal pulmonary findings in the right lung. Minimal increased benign-appearing markings in t he lingular segment of the left lung are noted. MEDIASTINUM: There is no hilar nor mediastinal adenopathy. Visualized thyroid unremarkable.There is a large retrocardiac hiatal hernia which measures 8 cm wide by 4.6 cm AP by 7.5 cm craniocaudal. Ther e is an element of organoaxial rotation of the of the stomach at this level. However, the soft is ab ove this level is not dilated. CARDIAC: Heart size upper normal. There is no pericardial effusion.Caliber of the thoracic aorta is within normal limits. VISUALIZED UPPER ABDOMEN:There are no significant adrenal masses. OSSEOUS: There is mild loss of height of L1 vertebral body at the inferior endplate level. There sudheer ears to be a probable hemangioma in this vertebra.. IMPRESSION: 1. Large retrocardiac hiatal hernia measuring 8 x 4.6 x 7.5 cm. There is some organo-axial rotation the herniated stomach and this probably accounts for the findings on the recent chest x-ray. Most of the stomach is in the chest. 2. There is a solitary small 3 millimeter benign-appearing nodule in the right lower lobe. No other significant focal pulmonary findings and there are no pleural effusions. RADIATION DOSE DELIVERED: 648.81mGy.cm Total DLP DATA REPOSITORY: All CT scans at this facility are submitted to the National Radiology Data Registry (NRDR) Dose Index Registry (DIR) with the [employer] (A[employer]). RADIATION OPTIMIZATION: All CT scans at this facility use at least one of these dose optimization te chniques: automated exposure control; mA and/or kV adjustment per patient size (includes targeted exa ms where dose is matched to clinical indication); or iterative reconstruction.
== END 2021-09-03 00:51 ==
PROVIDERS: PCP Family Medicine; Visit Provider Family Medicine
DX: R91.8 Other nonspecific abnormal finding of lung field (principal); Z01.812 Encounter for preprocedural laboratory examination; R91.1 Solitary pulmonary nodule; K44.9 Diaphragmatic hernia without obstruction or gangrene
CPT/HCPCS: 71260; 82565

== ENCOUNTER → 2021-09-09 13:00 | Outpatient (BNVA) | payer MEDICARE, BC, SELFPAY | PROVIDERS: PCP Family Medicine; Referring Provider Student in an Organized Health Care Education/Training Program; Visit Provider Physician Assistant Surgical | DX: M11.262 Other chondrocalcinosis, left knee (principal) | CPT/HCPCS: 20610; J1040 ==

== ENCOUNTER → 2021-10-07 00:38 | Outpatient (CLI) | payer MEDICARE, BC, SELFPAY ==
--- NOTE | 2021-10-07 08:45 | DI.NM_ITS ---
APPROVED REPORT Exam: Exercise Treadmill Patient Location: Out-Patient Room/Bed: Stress Nurse: Lilliana Arevalo RN Ordering Provider:ERICH WADE, Contact Number: [phone] BMI: 32.44 Baseline Rhythm: Atrial Fibrillation, PVC's Indications: Pre-operative stress test, patient has strong cardiovascular medical history Medical History Medical History: Afib, aortic stenosis, anemia, COLÓN, diabetes, GERD, HTN, HLD, RACHAEL, SOB, PVD, PUD, pe ripheral neuropathy Cardiac Medications: Atorvastatin, Carvedilol, Furosemide, Gabapentin, lisinopril, spironolactone, xa relto, magnesium, omeprazole Allergies: None Cardiac Risk Factors: + family history, HTN, HLD, PVD, Diabetes Previous Cardiac Procedures: None Pretest Chest Pain Characteristics: No chest pain Exercise History: Sedentary Physical Disabilities: Spinal stenosis, ambulates with cane Lung Sounds: Clear bilaterally Heart Sounds: +Murmur right sternal border Stress Test Details Test: Exercise stress testing was performed using a Johnny protocol. Nuclear Acquisition: Rest Tc-99m/Stress Tc-99m 1 day Rest Isotope: Tc-99m Sestamibi. Dose: 9.7 Date: 10/07/2021 Injection Time: 0845 Stress Isotope: Tc-99m Sestamibi. Dose: 32 Date: 10/07/2021 Injection Time: 1015 HR Resting HR Supine: 69 bpm Max Heart Rate (APMHR): 144.299722 bpm Resting HR Standin bpm Target HR (85% APMHR): 122.247973 bpm Max HR Achieved: 135 bpm % of APMHR: 93.75 Recovery HR: 96 bpm HR response to stress: Normal HR response to stress BP Resting BP Supine: 142/74 mmHg Resting BP Standin/76 mmHg Max BP: 168/94 mmHg Recovery BP: 128/80 mmHg BP response to stress: Normal blood pressure response to stress. ECG Resting ECG: Atrial Fibrillation, Right bundle branch block Ectopy: Intermittent PVC's Stress ECG: Atrial Fibrillation, Right bundle branch block ST Change: No significant ST segment changes noted Arrhythmia: PVC's Recovery ECG: Atrial Fibrillation, right bundle branch block Recovery ST Change: No significant ST segment changes noted, , No significant ST segment changes note d, Horizontal ST depression Recovery Arrhythmia: Frequent PVC's, rare couplet Clinical Reason for Termination: Target HR Achieved Stress Symptoms: None Exercise duration: 2 min59 sec Highest Stage Reached: Stage 1: 1.7 mph at 10% grade. Exercise capacity: 4.64 METs Angina Score: None Vidal Treadmill Score: 1.2 Rate Pressure Product: 15640 Stress ECG Conclusion 1. Resting electrocardiogram showed atrial fibrillation, right bundle branch block, left anterior fas cicular block 2. Patient exercised on the Johnny protocol and completed a workload of 4.64 METS 3. Normal hemodynamic response to exercise. The patient achieved 93% of predicted heart rate for age 4. Electrocardiographic portion of the test showed no evidence of myocardial ischemia 5. Sporadic PVCs were seen 6. See MPI report Vidal Treadmill Score is 1.2 which is Moderate risk. Stress Test Summary STAGE Time (mins) Speed (mph) Grade (%) HR BP SYMPTOMS METS Supine 69 142/74 Standing 90 128/76 1 3 1.7 10 133 154/78 4.6 1 min recovery 114 168/94 3 min recovery 94 164/88 6 min recovery 96 128/80 MPI Conclusion Myocardial perfusion imaging shows no ischemia or infarction EF 45%, wall motion is normal Radiologist Interpretation Radiologist agrees with Sign Out Clerk's Interpretation. Radiologist Interpretation by: Debra Jesus MD Interpretation Date/Time: 10/07/2021 15:50:21
== END ==
PROVIDERS: PCP Family Medicine; Visit Provider Family Medicine
DX: I48.0 Paroxysmal atrial fibrillation (principal); I49.3 Ventricular premature depolarization
CPT/HCPCS: 78452; 93016; 93018; 93017

== ENCOUNTER 2021-12-11 08:20 | Outpatient (REF) | payer MEDICARE, BC, SELFPAY ==
[2021-12-11 16:26] LABS: HCT 35.8 % (36.0-46.0); HGB 12.3 g/dL (11.2-15.7); MCH 34.6 pg (27.0-33.0); MCHC 34.4 % (32.0-36.0); MCV 101 fL (80-95); MPV 11.7 fL (8.0-11.0); Platelet Count 163 10^3/uL (130-400); RBC 3.56 10^6/uL (3.93-5.22); RDW 13.1 % (11.7-14.6); WBC 8.09 10^3/uL (4.4-10.8)
[2021-12-11 17:47] LABS: Ferritin 179 ng/mL (8-252); TSH (W/Ref FT4) 2.06 uIU/mL (0.36-3.74); Vitamin B12 1025 pg/mL (193-986)
== END 2021-12-11 08:21 | disposition home or self-care (01) ==
LOC: NCHCN 08:20
PROVIDERS: PCP Family Medicine; Visit Provider Family Medicine
DX: R73.03 Prediabetes (principal); D50.9 Iron deficiency anemia, unspecified; E03.9 Hypothyroidism, unspecified
CPT/HCPCS: 85027; 82607; 82728; 83036; 84443

== ENCOUNTER 2022-03-09 19:32 | Emergency (ER) | payer MEDICARE, BC, SELFPAY ==
[2022-03-09] VITALS (43 sets, daily range): BP systolic 89–126; BP diastolic 45–83; PULSE 52–90; RESP 10–25; TEMP 36.8; O2SAT 93
--- NOTE | 2022-03-09 19:30 | RT.EKG_ITS ---
APPROVED REPORT Exam: Resting ECG Reason for Exam: chest pain Patient Location: E HR:72 bpm ECG Measurements Heart Rate 72 AXIS MI 200 P 21 QRSd 149 QRS -64 QT 432 T -1 QTc 471 Conclusion Sinus rhythm...normal P axis, V-rate 60- 99 RBBB and LAFB...QRSd >120mS, axis(-40,240). Sinus. RBBB. LAFB. No STEMI. I have reviewed and interpreted ECG and agree with software generated interpretation.
--- NOTE | 2022-03-09 20:10 | ED.GENADUL_ITS ---
Discharge Plan Disposition Patient Disposition: HOME Condition: Improving Discharge Details Clinical Impression: Left shoulder pain, Pneumomediastinum, History of repair of hiatal hernia, COVID-19, Pneumonia Primary Care Provider: Ana Her ED Provider: Isabella Thorpe Ketchum Meds and New Rx's Prescriptions: New amoxicillin-pot clavulanate 400-57 mg/5 mL suspension for reconstitution 10 ml PO BID 7 Days Qty: 140 0RF doxycycline monohydrate 25 mg/5 mL suspension for reconstitution 100 mg PO BID 7 Days Qty: 280 0RF Continued anastrozole 1 mg Tablet 1 mg PO DAILY calcium carbonate 600 mg calcium (1,500 mg) Tablet 600 mg PO DAILY ascorbic acid (vitamin C) [Vitamin C] 500 mg Tablet 500 mg PO DAILY ferrous sulfate 325 mg (65 mg iron) Tablet 325 mg PO DAILY magnesium 250 mg Tablet 250 mg PO BID allopurinol 100 mg tablet 200 mg PO DAILY Label Comments: 02.11.17 Pt states down to Qday.HE cholecalciferol (vitamin D3) 2,000 unit tablet 2,000 unit PO DAILY gabapentin 300 mg capsule 300 mg PO BID Rx Instructions: no abrupt cessation carvedilol 6.25 mg tablet 6.25 mg PO BID Rx Instructions: must administer with a meal/food spironolactone 25 mg tablet 25 mg PO DAILY turmeric 400 mg capsule PO cyanocobalamin (vitamin B-12) [Vitamin B-12] 100 MCG tablet 1 tab PO DIRECTED atorvastatin [Lipitor] 40 MG tablet 40 mg PO QPM omeprazole 20 MG capsule,delayed release(DR/EC) 20 mg PO DAILY@0730 furosemide 20 MG tablet 40 mg PO DAILY Label Comments: not sure of dose hydrocodone-acetaminophen 5-325 mg tablet 1 tab PO Q6H PRN (Reason: pain) Qty: 10 0RF lisinopril 40 MG tablet 40 mg PO DAILY levothyroxine 125 mcg tablet 100 mcg PO DAILY Xarelto 15 mg Tablet 15 mg PO QPM acetaminophen 500 mg tablet 1,000 mg PO Q8H PRN (Reason: pain) Qty: 60 3RF tramadol 50 mg tablet 50 mg PO Q6H PRNQty: 8 0RF oxycodone 5 mg tablet 5 tab PO 2XD ondansetron 4 mg tablet,disintegrating 4 tab PO 3XD Discharge Instructions Instructions: Acute Diarrhea (ED), Pneumonia (ED), Shoulder Pain (ED), COVID-19 (Coronavirus Disease 2019) (ED) Additional Instructions: You were noted to have air within your chest in the area between your lungs on your CT scan which is likely secondary to your recent surgery. There was no evidence of injury or perforation of your esophagus or any other acute abnormality in your abdomen on your imaging today. Your CT chest imaging did also note evidence of a left lower lobe pneumonia. COVID is a virus but a localized area of infection in the lung is usually associated with a bacterial pneumonia. A prescription for 2 antibiotics have been sent electronically to your pharmacy to take as directed until finished. Drink plenty of fluids and get plenty of rest. You were given the monoclonal antibody infusion to decrease the risk of progression to severe illness or related to the COVID-19 virus. Follow-up with Dr. Will's office this week. Follow-up with your primary care doctor within 1 week. Return to the emergency department with any worsening or new concerning symptoms such as fever, increased pain, difficulty breathing or any other concerns. Discharge Data Discharge Date/Time-TO BE ENTERED AT DEPARTURE: 03/10/22 03:17 Discharge Physician: Isabella Thorpe Medical Decision Making 1999 -- 76-year-old female with a history of atrial fibrillation on Xarelto, hypertension, hyperlipidemia, hypothyroidism, breast cancer, CKD, diabetes, GERD, gout and sleep apnea who is 4 days status post laparoscopic hiatal hernia repair at [facility] presents with left shoulder pain for the past 2 days, fatigue for the past 4 days and loose stools today with report of testing positive for COVID today. Vitals within normal limits. EKG notes a rate of 72, sinus, right bundle branch block, left anterior fascicular block but no obvious ischemic findings. Patient appears generally fatigued but nontoxic. Her laparoscopic surgical incisions are clean dry and intact without signs of cellulitis. Her abdomen is soft without rigidity or guarding. Her lungs are clear bilaterally. She has no reproducible left shoulder pain with movement and her shoulder appears normal to inspection. Normal ENT exam. No meningeal signs. Suspect her shoulder pain is likely referred pain from insufflation during laparoscopic procedure resulting from gas irritating the diaphragm causing referred pain to the shoulder. History and presentation does not appear consistent with ACS, dissection. Considering her age and history, will obtain screening labs, D- dimer, urinalysis, COVID test and pending D-dimer results will refer for chest x-ray or CT imaging. We will give IV fluids, IV Tylenol, IV Pepcid and GI cocktail and reassess. 2230 -- Labs and imaging reviewed. Normal white blood cell count. D-dimer elevated to 2110. Magnesium 1.3, will replete. Troponin negative. Urinalysis notes trace leukocyte esterase but 0-2 WBCs, few bacteria and negative nitrate and suspect contamination. COVID is confirmed positive. Negative influenza. CT chest notes a l small pneumomediastinum and left lower lobe infiltrate. Although she has no fever, normal white blood cell count and procalcitonin, she does endorse a cough with yellow sputum, so we will cover with antibiotics. 0010 -- Case discussed with patient's surgeon at [facility] Dr. Will -she reviewed CT images and is recommending a swallow study which is unable to be performed here overnight. They do not have any beds available. She is recommending NPO and a CT with oral contrast to rule out esophageal perforation since swallow study unable to be performed. 0145 -- CT with oral contrast shows no evidence of esophageal perforation and minor for the mediastinum appears likely secondary to recent surgery. Case discussed and imaging reviewed with Dr. Harrington at [facility] and she has no further recommendations and patient can be discharged home. Patient had a few low blood pressures initially which has been fluid responsive likely in the setting of diarrhea and decreased p.o. intake postsurgery and with new diagnosis of COVID. Secondary to patient's medications and renal function, she does not appear to meet criteria for packed fluid so we will proceed with monoclonal antibody infusion. She was given a dose of Augmentin and doxycycline for a left lower lobe infiltrate. She was advised to follow-up with Dr. Will's office this week. Advised to follow up with the primary care doctor for re-evaluation. Usual and customary return precautions given prior to discharge. Patient felt comfortable going home. Case discussed with patient's [id number] Tessa who felt comfortable taking patient home. Medical Records Medical records reviewed: Yes I reviewed the patient's medical records. Imaging Data Radiologic Study: Radiologist's impression: CTA Chest With Contrast Exam date and time: 03/09/2022 9:30 PM Age: 76 years old Clinical indication: Pain and abnormal findings; Abnormal diagnostic tests; Elevated d-dimer; Prior surgery; Surgery date: 6+ months; Surgery type: Cholecystectomy; Patient HX: L shoulder pain, hypoxia, covid, elev d dimer, R/O pe TECHNIQUE: Imaging protocol: Computed tomographic angiography of the chest with contrast. 3D rendering (Not supervised by radiologist): MIP and/or 3D reconstructed images were created by the technologist. Radiation optimization: All CT scans at this facility use at least one of these dose optimization techniques: automated exposure control; mA and/or kV adjustment per patient size (includes targeted exams where dose is matched to clinical indication); or iterative reconstruction. Contrast material: OMNIPAQUE 350; Contrast volume: 75 ml; Contrast route: INTRAVENOUS (IV);? COMPARISON: CT CHEST W 09/03/2021 9:44 AM FINDINGS: Pulmonary arteries: Pulmonary artery is well opacified. No embolism evident. Aorta: Thoracic aorta is normal in course. No dissection. Ascending aorta with mild aneurysmal change at 3.7 x 4 cm AP and transverse. Lungs: Left lower lobe posterior segmental airspace consolidation consistent with an infiltrate. Pleural spaces: Bilateral pleural effusions of small size. These are new since 09/23/2021. Heart: Moderate to severe cardiac enlargement. No pericardial effusion. No coronary artery atherosclerotic calcium visible. Mediastinal space: Small amount of pneumomediastinum. There is a small amount of air seen along the aortic arch on the left side. See series 6, image 16. A small amount of air seen in the pre-vascular space of the mediastinum. See axial series 6, image 18. This is nonspecific in appearance. This may be related to barotrauma from coughing. Lymph nodes: Unremarkable. No enlarged lymph nodes. Diaphragm: Moderate size hiatal hernia. Nonspecific appearance by current analysis. This is also evident on previous study 09/03/2021. Liver: Liver is unremarkable in appearance. Gallbladder and bile ducts: Gallbladder is absent. Pancreas: Visible portion the pancreas unremarkable. Spleen: Spleen is upper limits of normal in size. Adrenal glands: Adrenal glands are unremarkable. Kidneys and ureters: Visible portion of the kidneys bilaterally unremarkable. Bones/joints: Degenerative thoracic spine changes. Dextroscoliosis. Soft tissues: Chest wall soft tissues are unremarkable. Small amount of soft tissue emphysema in the low right neck. IMPRESSION: 1. Left lower lobe infiltrate. 2. Minor bilateral pleural effusions. 3. Small pneumomediastinum. No pneumothorax. 4. Cardiomegaly. No pericardial effusion. 5. Moderate size hiatal hernia. 6. No pulmonary arterial embolism evident. 7. Atherosclerotic thoracic aorta. Mild aneurysmal dilatation of the assay ending segment. CT Chest Without Contrast; Diagnostic Exam date and time: 03/10/2022 12:41 AM Age: 76 years old Clinical indication: Abnormal findings; Abnormal radiologic finding of the abdomen; Radiologic exam and body structure: Concern for esophogeal perf; Prior surgery; Surgery date: 1-6 months; Surgery type: Hiatial hernia repair on thu; Patient HX: Drink po contrast -while scanning R/O esophageal perf from pe study TECHNIQUE: Imaging protocol: Diagnostic computed tomography of the chest without contrast. Radiation optimization: All CT scans at this facility use at least one of these dose optimization techniques: automated exposure control; mA and/or kV adjustment per patient size (includes targeted exams where dose is matched to clinical indication); or iterative reconstruction. Other contrast: Oral, omnipaque 350, 15; COMPARISON: CT CHEST PE CTA 03/09/2022 9:30 PM FINDINGS: Lungs: Posterior lung base atelectatic changes. Pleural spaces: Small bilateral pleural effusions, left larger than right. Heart: Moderate cardiac enlargement. No pericardial effusion. Mediastinal space: Esophagus is opacified with ingested contrast. There is no extravasation. There are changes surrounding the distal esophagus consistent with a hiatal hernia repair. This history of recent surgery is newly provided. The pneumomediastinum which is reported from earlier CTA chest is likely related to the hiatal hernia repair that the patient reportedly had 4-5 days ago. Lymph nodes: Unremarkable. No enlarged lymph nodes. Vasculature: Unremarkable. No aortic aneurysm.? Bones/joints: Thoracic spine degenerative changes. No acute skeletal pathology. Soft tissues: Soft tissue emphysema of the neck.? More prominent on the right.. IMPRESSION: 1. No evidence of esophageal perforation. No contrast leak into the mediastinum. 2. Recent hiatal hernia repair. This surgery is likely the source of the minor pneumomediastinum. 3. Small bilateral pleural effusions. 4. Bibasilar atelectatic lung changes, left greater than right. 5. Moderate cardiac enlargement. No acute features. 6. Persistent minor pneumomediastinum. 7. Soft tissue emphysema of the neck of mild severity. CT Abdomen Without Contrast Exam date and time: 03/10/2022 12:41 AM Age: 76 years old Clinical indication: Abnormal findings; Abnormal radiologic finding of the abdomen; Radiologic exam and body structure: Concern for esophogeal perf; Prior surgery; Surgery date: 1-6 months; Surgery type: Hiatial hernia repair on wed; Patient HX: Drink po contrast -while scanning R/O esophageal perf from pe study TECHNIQUE: Imaging protocol: Computed tomography of the abdomen without contrast. Radiation optimization: All CT scans at this facility use at least one of these dose optimization techniques: automated exposure control; mA and/or kV adjustment per patient size (includes targeted exams where dose is matched to clinical indication); or iterative reconstruction. Other contrast: Oral, omnipaque 350, 15; COMPARISON: CT PELVIC/LOWER ABD WITHOUT CONT 06/07/2016 9:19 AM FINDINGS: Diaphragm: Recent hiatal hernia repair. Contrast has passed from the esophagus into the stomach. No extravasation of contrast in the upper abdomen. Liver: Liver is normal in size and contour. Gallbladder and bile ducts: Previous cholecystectomy. Pancreas: Mild pancreatic atrophy. Spleen: Spleen is unremarkable. Adrenal glands: Normal. No mass. Kidneys and ureters: Bilateral kidneys are unremarkable. Stomach and bowel: Stomach is unremarkable in contour. No distension. No wall thickening. Small bowel loops in the upper abdomen are unremarkable. Visible large bowel loops are unremarkable. Intraperitoneal space: No free fluid in the upper abdomen. Vasculature: Unremarkable. No abdominal aortic aneurysm.? Lymph nodes: Unremarkable. No enlarged lymph nodes. Bones/joints: Old compression fracture of L1. Upper lumbar spine degenerative disc disease. Soft tissues: Unremarkable. IMPRESSION: 1. No acute findings within the upper abdomen. 2. Recent hiatal hernia repair with postoperative changes in the region of the GE junction. No contrast extravasation from the distal esophagus or gastric fundal region. 3. No free fluid in the upper abdomen. 4. Previous cholecystectomy. 5. Old L1 compression fracture. Lab Data Lab results reviewed: Yes I reviewed the patient's lab results. Labs: Laboratory Tests Range/Units 03/09/22 03/09/22 03/09/22 20:00 20:00 20:00 WBC (4.4-10.8) 10^3/uL 5.91 RBC (3.93-5.22) 10^6/uL 3.21 L Hgb (11.2-15.7) g/dL 11.1 L Hct (36.0-46.0) % 33.0 L MCV (80-95) fL 103 H MCH (27.0-33.0) pg 34.6 H MCHC (32.0-36.0) % 33.6 RDW (11.7-14.6) % 13.2 Plt Count (130-400) 10^3/uL 133 MPV (8.0-11.0) fL 11.5 H Immature Gran % 0.3 Neutrophils % 58.9 Lymphocytes % 25.9 Monocytes % 9.8 Eosinophils % 4.6 Basophils % 0.5 Nucleated RBC % (0.0-0.3) % 0.0 Absolute Neutrophils (1.2-6.7) 10^3/uL 3.48 Absolute Lymphocytes (1.2-3.4) 10^3/uL 1.53 Absolute Monocytes (0.1-0.8) 10^3/uL 0.58 Absolute Eosinophils (0.0-0.7) 10^3/uL 0.27 Absolute Basophils (0.0-0.2) 10^3/uL 0.03 D-Dimer (<500) ng/mlFEU 2110 H Sodium (136-145) mmol/L 139 Potassium (3.5-5.1) mmol/L 4.3 Chloride (98-107) mmol/L 103 Carbon Dioxide (21.0-32.0) mmol/L 28.4 Anion Gap (3-11) mmol/L 7.6 BUN (7-18) mg/dL 21 H Creatinine (0.55-1.02) mg/dL 1.4 H Est GFR (CKD-EPI 2020) (mL/min/1.73m2) 38.99 Glucose (74-106) mg/dL 95 Calcium (8.5-10.1) mg/dL 9.0 Magnesium (1.8-2.4) mg/dL 1.3 L Total Bilirubin (0.2-1.0) mg/dL 1.1 H AST (15-37) U/L 37 ALT (14-59) U/L 51 Alkaline Phosphatase (46-116) U/L 76 Troponin I (<or=60) ng/L < 50 Total Protein (6.4-8.2) g/dL 6.7 Albumin (3.4-5.0) g/dL 3.9 Procalcitonin ng/mL Urine Color (Yellow) Urine Clarity (Clear) Urine pH (5-8) Ur Specific [place] (1.005-1.025) Urine Protein (Negative) mg/dL Urine Ketones (Negative) mg/dL Urine Blood (Negative) Urine Nitrite (Negative) Urine Bilirubin (Negative) Urine Urobilinogen (Up TO 0.2) EU/dL Ur Leukocyte Esterase (Negative) Urine RBC (0-2) HPF Urine WBC (0-5) HPF Ur Epithelial Cells (Negative) HPF Urine Crystals (Negative) HPF Urine Bacteria (Negative) HPF Urine Mucus (Negative) Ur Culture Indicated? Urine Glucose (Negative) mg/dL COVID-19 Source SARS-CoV-2 (PCR) Influenza Type A (PCR) (Negative) Influenza Type B (PCR) (Negative) RSV (PCR) (Negative) Range/Units 03/09/22 03/09/22 03/09/22 20:14 20:28 22:44 WBC (4.4-10.8) 10^3/uL RBC (3.93-5.22) 10^6/uL Hgb (11.2-15.7) g/dL Hct (36.0-46.0) % MCV (80-95) fL MCH (27.0-33.0) pg MCHC (32.0-36.0) % RDW (11.7-14.6) % Plt Count (130-400) 10^3/uL MPV (8.0-11.0) fL Immature Gran % Neutrophils % Lymphocytes % Monocytes % Eosinophils % Basophils % Nucleated RBC % (0.0-0.3) % Absolute Neutrophils (1.2-6.7) 10^3/uL Absolute Lymphocytes (1.2-3.4) 10^3/uL Absolute Monocytes (0.1-0.8) 10^3/uL Absolute Eosinophils (0.0-0.7) 10^3/uL Absolute Basophils (0.0-0.2) 10^3/uL D-Dimer (<500) ng/mlFEU Sodium (136-145) mmol/L Potassium (3.5-5.1) mmol/L Chloride (98-107) mmol/L Carbon Dioxide (21.0-32.0) mmol/L Anion Gap (3-11) mmol/L BUN (7-18) mg/dL Creatinine (0.55-1.02) mg/dL Est GFR (CKD-EPI 2020) (mL/min/1.73m2) Glucose (74-106) mg/dL Calcium (8.5-10.1) mg/dL Magnesium (1.8-2.4) mg/dL Total Bilirubin (0.2-1.0) mg/dL AST (15-37) U/L ALT (14-59) U/L Alkaline Phosphatase (46-116) U/L Troponin I (<or=60) ng/L Total Protein (6.4-8.2) g/dL Albumin (3.4-5.0) g/dL Procalcitonin ng/mL 0.1 Urine Color (Yellow) Urine Clarity (Clear) Urine pH (5-8) Ur Specific [place] (1.005-1.025) Urine Protein (Negative) mg/dL Urine Ketones (Negative) mg/dL Urine Blood (Negative) Urine Nitrite (Negative) Urine Bilirubin (Negative) Urine Urobilinogen (Up TO 0.2) EU/dL Ur Leukocyte Esterase (Negative) Urine RBC (0-2) HPF Urine WBC (0-5) HPF Ur Epithelial Cells (Negative) HPF Urine Crystals (Negative) HPF Urine Bacteria (Negative) HPF Urine Mucus (Negative) Ur Culture Indicated? Urine Glucose (Negative) mg/dL COVID-19 Source Cancelled Nasopharynx SARS-CoV-2 (PCR) Cancelled Positive A Influenza Type A (PCR) (Negative) Negative Influenza Type B (PCR) (Negative) Negative RSV (PCR) (Negative) Negative Range/Units 03/09/22 23:47 WBC (4.4-10.8) 10^3/uL RBC (3.93-5.22) 10^6/uL Hgb (11.2-15.7) g/dL Hct (36.0-46.0) % MCV (80-95) fL MCH (27.0-33.0) pg MCHC (32.0-36.0) % RDW (11.7-14.6) % Plt Count (130-400) 10^3/uL MPV (8.0-11.0) fL Immature Gran % Neutrophils % Lymphocytes % Monocytes % Eosinophils % Basophils % Nucleated RBC % (0.0-0.3) % Absolute Neutrophils (1.2-6.7) 10^3/uL Absolute Lymphocytes (1.2-3.4) 10^3/uL Absolute Monocytes (0.1-0.8) 10^3/uL Absolute Eosinophils (0.0-0.7) 10^3/uL Absolute Basophils (0.0-0.2) 10^3/uL D-Dimer (<500) ng/mlFEU Sodium (136-145) mmol/L Potassium (3.5-5.1) mmol/L Chloride (98-107) mmol/L Carbon Dioxide (21.0-32.0) mmol/L Anion Gap (3-11) mmol/L BUN (7-18) mg/dL Creatinine (0.55-1.02) mg/dL Est GFR (CKD-EPI 2020) (mL/min/1.73m2) Glucose (74-106) mg/dL Calcium (8.5-10.1) mg/dL Magnesium (1.8-2.4) mg/dL Total Bilirubin (0.2-1.0) mg/dL AST (15-37) U/L ALT (14-59) U/L Alkaline Phosphatase (46-116) U/L Troponin I (<or=60) ng/L Total Protein (6.4-8.2) g/dL Albumin (3.4-5.0) g/dL Procalcitonin ng/mL Urine Color (Yellow) Yellow Urine Clarity (Clear) Clear Urine pH (5-8) 5.5 Ur Specific [place] (1.005-1.025) 1.010 Urine Protein (Negative) mg/dL Negative Urine Ketones (Negative) mg/dL Negative Urine Blood (Negative) Negative Urine Nitrite (Negative) Negative Urine Bilirubin (Negative) Negative Urine Urobilinogen (Up TO 0.2) EU/dL 0.2 Ur Leukocyte Esterase (Negative) Trace H Urine RBC (0-2) HPF 0-2 Urine WBC (0-5) HPF 0-2 Ur Epithelial Cells (Negative) HPF Moderate Urine Crystals (Negative) HPF Negative Urine Bacteria (Negative) HPF Few Urine Mucus (Negative) Negative Ur Culture Indicated? No/Sq. Contamination Urine Glucose (Negative) mg/dL Negative COVID-19 Source SARS-CoV-2 (PCR) Influenza Type A (PCR) (Negative) Influenza Type B (PCR) (Negative) RSV (PCR) (Negative) ECG Data Attestation: I personally reviewed and interpreted this ECG (s) as follows: Interpretation: Rate of 72, sinus, right bundle branch block, left anterior fascicular block, no STEMI. HPI General Mode of arrival: ambulatory . Date/Time Provider Initiated Documentation: 03/09/22 19:43 . Limitations to Documentation: no limitations . Information obtained by: patient . HPI Narrative: Patient is a 76-year-old female who is 4 days status post laparoscopic hiatal hernia repair presents for left shoulder pain for the past 2 days, in addition to weakness and diarrhea and report of testing positive for COVID today. Patient states she developed fatigue 1 day after her surgery. She states 2 days ago she noted left shoulder pain that is not worse with any movement or position. She denies any relief with Tylenol or oxycodone she was given after her surgery. Her last dose of oxycodone was this morning. Her last dose of Tylenol was 4 hours ago. She states she developed loose stools today. She states she has chronic black stools due to taking iron and states this is her us ual stool color. She denies any bright red rectal bleeding or rectal pain. She denies any ear pain, sore throat, anterior chest pain, difficulty breathing, abdominal pain, vomiting or urinary symptoms. She states she has not been eating or drinking much and is concerned about dehydration and states she has been urinating less than usual. She states her daughter tried to call [facility] surgery for recommendations but was unable to reach them. She states she has received a total of 5 COVID vaccines. Related Data Home Medications Medication Instructions Recorded Confirmed atorvastatin 40 mg tablet (Lipitor) 40 mg PO QPM 06/13/13 09/09/21 omeprazole 20 mg capsule,delayed 20 mg PO DAILY@0730 06/13/13 09/09/21 release cyanocobalamin (vitamin B-12) 100 1 tab PO DIRECTED 11/07/15 09/09/21 mcg tablet (Vitamin B-12) furosemide 20 mg tablet 40 mg PO DAILY 05/31/16 09/09/21 lisinopril 40 mg tablet 40 mg PO DAILY 06/02/16 09/09/21 allopurinol 100 mg tablet 200 mg PO DAILY 04/13/19 09/09/21 cholecalciferol (vitamin D3) 50 2,000 unit PO DAILY 04/13/19 09/09/21 mcg (2,000 unit) tablet levothyroxine 125 mcg tablet 100 mcg PO DAILY 04/13/19 09/09/21 rivaroxaban 15 mg tablet (Xarelto) 15 mg PO QPM 05/10/19 09/09/21 acetaminophen 500 mg tablet 1,000 mg PO Q8H PRN pain #60 tabs 01/24/20 09/09/21 tramadol 50 mg tablet 50 mg PO Q6H PRN #8 tabs 01/24/20 09/09/21 anastrozole 1 mg tablet 1 mg PO DAILY 04/19/20 09/09/21 ascorbic acid (vitamin C) 500 mg 500 mg PO DAILY 04/19/20 09/09/21 tablet (Vitamin C) calcium carbonate 600 mg calcium 600 mg PO DAILY 04/19/20 09/09/21 (1,500 mg) tablet ferrous sulfate 325 mg (65 mg 325 mg PO DAILY 04/19/20 09/09/21 iron) tablet magnesium 250 mg tablet 250 mg PO BID 04/19/20 09/09/21 carvedilol 6.25 mg tablet 6.25 mg PO BID 05/28/20 09/09/21 gabapentin 300 mg capsule 300 mg PO BID 05/28/20 09/09/21 spironolactone 25 mg tablet 25 mg PO DAILY 05/28/20 09/09/21 turmeric 400 mg capsule mg PO 07/30/20 09/09/21 hydrocodone 5 mg-acetaminophen 325 1 tab PO Q6H PRN pain #10 tabs 08/24/21 09/09/21 mg tablet ondansetron 4 mg disintegrating 4 tab PO 3XD 03/09/22 03/09/22 tablet oxycodone 5 mg tablet 5 tab PO 2XD 03/09/22 03/09/22 amoxicillin 400 mg-potassium 10 ml PO BID 7 days #140 mL 03/10/22 clavulanate 57 mg/5 mL oral suspension doxycycline monohydrate 25 mg/5 mL 100 mg (20 mL) PO BID 7 days #280 03/10/22 oral suspension mL Previous Rx's Medication Instructions Recorded acetaminophen 500 mg tablet 1,000 mg PO Q8H PRN pain #60 tabs 01/24/20 tramadol 50 mg tablet 50 mg PO Q6H PRN #8 tabs 01/24/20 hydrocodone 5 mg-acetaminophen 325 1 tab PO Q6H PRN pain #10 tabs 08/24/21 mg tablet amoxicillin 400 mg-potassium 10 ml PO BID 7 days #140 mL 03/10/22 clavulanate 57 mg/5 mL oral suspension doxycycline monohydrate 25 mg/5 mL 100 mg (20 mL) PO BID 7 days #280 03/10/22 oral suspension mL Allergies Allergy/AdvReac Type Severity Reaction Status Date / Time No Known Allergies Allergy Verified 09/09/21 13:17 General Stated Complaint: Chest Pain FRANCINE: 3 Review of Systems All systems reviewed & are unremarkable except as noted in HPI and below Constitutional Constitutional: Reports as per HPI, Denies chills, Reports fatigue and Denies fever(s) Eyes Eyes: Denies blurry vision ENT Ears, Nose, Mouth, and Throat: Denies dizziness, Denies sore throat and Denies throat swelling Cardiovascular Cardiovascular: Denies chest pain and Denies dyspnea Respiratory Respiratory: Denies cough and Denies dyspnea Gastrointestinal Gastrointestinal: Denies abdominal pain, Reports diarrhea and Denies vomiting Genitourinary Genitourinary: Denies hematuria and Denies dysuria Musculoskeletal Musculoskeletal: Denies back pain and Denies numbness Comments: left shoulder pain Integumentary/Breasts Skin/Breast: Denies lesions and Denies rash Neurologic Neurologic: Denies dizziness, Denies localized weakness and Denies numbness Endocrine Endocrine: Reports fatigue Allergic/Immunologic Allergic/Immunologic: Denies throat swelling PFSH All Active Problems (Updated 03/10/22 @ 02:29 by Isabella Thorpe DO) Left shoulder pain (Acute) Pneumomediastinum (Acute) History of repair of hiatal hernia (Acute) COVID-19 (Acute) Pneumonia (Acute) Trigger finger, left index finger (Acute) Depo-Medrol injection: 08/13/2020 History of carpal tunnel surgery of right wrist (Acute 01/24/20) Chondrocalcinosis of left knee (Acute) Injected: 01/03/2020, 09/09/2021 Medical History (Updated 03/10/22 @ 02:29 by Isabella Thorpe DO) Acute back pain with sciatica Afib Anemia Anemia, iron deficiency Aortic stenosis Arthritis Back pain Breast cancer left breast Carpal tunnel syndrome Cervical polyp Chronic pain of left lower extremity Chronic venous insufficiency CKD (chronic kidney disease) stage 3, GFR 30-59 ml/min Diabetes COLÓN (dyspnea on exertion) Fatigue GERD (gastroesophageal reflux disease) Glucose intolerance (impaired glucose tolerance) Gout of ankle HTN (hypertension) Hyperlipidemia Hypothyroidism Leg cramps RACHAEL (obstructive sleep apnea) Osteopenia Peripheral neuropathy PUD (peptic ulcer disease) Sleep apnea SOB (shortness of breath) Spinal stenosis, lumbar Trigger finger, right ring finger Venous stasis Surgical History (Updated 03/10/22 @ 02:10 by Isabella Thorpe DO) Cholecystectomy Colonoscopy - MAC (03/17/17) H/O lumbosacral spine surgery Lumbar Foraminotomy L4 History of ankle surgery right w/ screws History of laminectomy Trigger finger, left little finger s/p release 05/10/2019 Family History Grandmother Colon cancer Other Stroke Social History (Updated 05/02/20 @ 09:56 by Vanessa Melvin) Smoking/Tobacco Use Status: Never Smoking risk assessment performed?: Yes Alcohol Intake: current Alcohol Intake frequency: a few times a week Alcohol type: beer, wine and hard liquor Drug use: Never Substance use type: does not use Household members: none Housing: house Number of Children: 2 current occupation: Retired Current gender identity: female What type of physical activity do you participate in: independent ambulation Do you feel safe at home: Yes Do you feel safe in your relationship?: Yes Exam Const General: cooperative and no acute distress Orientation: alert, awake and oriented x3 HENMT Head: normal to inspection Ears: hearing grossly normal bilaterally and external ears normal Face and sinus: normal facial exam Mouth: mucous membranes dry Throat: posterior oropharynx normal Eyes General: appearance normal, both eyes and all related structures Neck Neck: normal visual inspection and No submandibular swelling Lymphatic: no lymphadenopathy noted Chest Chest: normal inspection of the chest and no tenderness Resp Effort & Inspection: normal respiratory effort and able to speak in complete sentences Auscultation: clear to auscultation bilaterally Cardio Rate: regular rate Rhythm: regular rhythm GI Inspection: normal to inspection and other (laparoscopic surgical incisions w/ Dermabond present, no signs cellulitis) Palpation: soft, not firm, not rigid and nontender Auscultation: hypoactive bowel sounds Skin General skin exam: no rashes or lesions noted Neuro General: patient alert, patient awake and patient oriented x3 Cognition: normal cognition Speech: speech normal Motor: muscle tone normal throughout Sensory Exam: no sensory deficits noted Extrem General: normal to inspection, full ROM, capillary refill normal, no calf tenderness bilaterally and no edema Psych Appearance: grossly normal Mental Status: mental status grossly normal Speech and Movement: speech and movement normal Affect: normal affect Course Vital Signs Vital signs: Vital Signs Pulse 69 03/09/22 19:42 Respiratory Rate 20 03/09/22 19:42 Pulse Oximetry 93 03/09/22 19:42 Temperature Source Oral 03/09/22 19:42 Pulse 69 03/09/22 19:42 Respiratory Rate 18 03/09/22 20:00 Respiratory Effort Non-Labored 03/09/22 20:00 Respiratory Depth Normal 03/09/22 20:00 Respiratory Pattern Normal 03/09/22 20:00 Pulse Oximetry 93 03/09/22 19:42 Oxygen Delivery Method Room Air 03/09/22 19:42 Oxygen Flow Rate 0 03/09/22 19:42 Pain Level 5 03/09/22 20:04
[2022-03-09] MEDS: ACETAMINOPHEN 1,000 MG/100 ML BTL 400 MG IVPB (20:28)
[2022-03-09] MEDS: Famotidine 20 MG/2 ML VIAL IVP (20:29)
[2022-03-09] MEDS: Normal Saline 1,000 ML 1000 ML IV ×2 (20:29→23:28)
[2022-03-09 20:36] LABS: Abs Immature Grans 0.02 10^3/uL (0.0-0.06); Absolute Basophil Count 0.03 10^3/uL (0.0-0.2); Absolute Eosinophil Count 0.27 10^3/uL (0.0-0.7); Absolute Lymphocyte Count 1.53 10^3/uL (1.2-3.4); Absolute Monocyte Count 0.58 10^3/uL (0.1-0.8); Absolute Neutrophil Count 3.48 10^3/uL (1.2-6.7); Basophils % 0.5; Eosinophils % 4.6; HGB 11.1 g/dL (11.2-15.7); Immature Grans % 0.3; Lymphocytes % 25.9; MCH 34.6 pg (27.0-33.0); MCHC 33.6 % (32.0-36.0); MCV 103 fL (80-95); MPV 11.5 fL (8.0-11.0); Monocytes % 9.8; Neutrophils % 58.9; Platelet Count 133 10^3/uL (130-400); RBC 3.21 10^6/uL (3.93-5.22); RDW 13.2 % (11.7-14.6); RDW-SD 49.6 fL; WBC 5.91 10^3/uL (4.4-10.8)
[2022-03-09 20:57] LABS: ALT 51 U/L (14-59); AST 37 U/L (15-37); Albumin 3.9 g/dL (3.4-5.0); Alkaline Phosphatase 76 U/L (46-116); Anion Gap 7.6 mmol/L (3-11); BUN 21 mg/dL (7-18); Bilirubin, Total 1.1 mg/dL (0.2-1.0); CO2 28.4 mmol/L (21.0-32.0); CREATININE 1.4 mg/dL (0.55-1.02); Chloride 103 mmol/L (98-107); Estimated GFR 38.99 (mL/min/1.73m2); Glucose 95 mg/dL (74-106); Magnesium 1.3 mg/dL (1.8-2.4); Potassium 4.3 mmol/L (3.5-5.1); Sodium 139 mmol/L (136-145); Total Protein 6.7 g/dL (6.4-8.2); Troponin I < 50 ng/L (<or=60)
--- NOTE | 2022-03-09 21:00 | DI.CT_ITS ---
Exam(s) CT CHEST PE CTA EXAM: CT CHEST PE CTA CLINICAL HISTORY: L shoulder pain,hypoxia,covid,elev d dimer,r/o PE. TECHNIQUE: Imaging Protocol: CT angiography of the chest was performed using pulmonary embolus sampson col. Multi planar reconstructions were performed. CONTRAST MATERIAL: Intravenous: Omnipaque 350 Contrast volume: 100 cc COMPARISON: CT CT CHEST W from 09/03/2021 FINDINGS: CHEST: PULMONARY ARTERIES: There are no intraluminal filling defects to suggest acute pulmonary emboli. LUNGS: There is infiltrate in the left lower lobe with air bronchograms. Also small pleural effusion . There is also a pleural effusion of similar small size on the opposite-right side but no infiltrat e on the right side.. The previously described small nodule in the right lower lobe is unchanged. MEDIASTINUM: Prominent hiatal hernia again noted. Mild pneumomediastinum. No pneumothorax. One tho usand no hilar nor mediastinal adenopathy. No axillary adenopathy. CARDIAC: Cardiomegaly. No pericardial effusion. The diameter of the ascending thoracic aorta is enl arged, measuring 4.2 cm. There is no dissection. Heart size is upper normal. The proximal descendi ng thoracic aorta is enlarged measuring 3 cm.Diameter of the mid descending thoracic aorta is 2.7 cm and diameter of the lower thoracic aorta is 2.6 cm. There is no significant shift of the interventr icular septum. PARTIALLY VISUALIZED UPPERMOST ABDOMEN: Prominent hiatal hernia again noted no adrenal masses. OSSEOUS: No significant osseous lesions.Intraosseous hemangiomas noted in 1 of the thoracic vertebral bodies, probably T12. There is slight loss of height at the inferior endplate level of this vertebr al body. This finding is unchanged from the prior CT scan of 09/03/2021.. IMPRESSION: 1. No evidence of acute pulmonary emboli. No evidence of pulmonary infarction. 2. However, there are small bilateral pleural effusions and there is atelectasis and some infiltrate in the left lower lobe, not previously present. 3. Cardiomegaly. No pericardial effusion. Dilatation of the ascending thoracic aorta measuring 4.2 cm and also mild dilatation of the descending thoracic aorta. No dissection. 4. Large hiatal hernia is again noted. A large part of the stomach is again noted to be in the ches t. RADIATION DOSE DELIVERED: 514.73mGy.cm Total DLP DATA REPOSITORY: All CT scans at this facility are submitted to the National Radiology Data Registry (NRDR) Dose Index Registry (DIR) with the [employer] (ACR). RADIATION OPTIMIZATION: All CT scans at this facility use at least one of these dose optimization te chniques: automated exposure control; mA and/or kV adjustment per patient size (includes targeted exa ms where dose is matched to clinical indication); or iterative reconstruction.
[2022-03-09 21:08] LABS: D-Dimer 2110 ng/mlFEU (<500)
[2022-03-09 21:24] LABS: Influenza A PCR Negative (Negative); Influenza B PCR Negative (Negative); RSV PCR Negative (Negative)
[2022-03-09] MEDS: Omnipaque 350 MG/ML 100 ML BTL IJ (21:24)
[2022-03-09] MEDS: Normal Saline Flush 10 ML SYR IVP (21:30)
[2022-03-09] MEDS: MAGNESIUM SULFATE 2 GM/50 ML BAG IVPB (21:47)
[2022-03-09 21:59] LABS: COVID-19 PCR Positive (Negative); Source Nasopharynx
--- NOTE | 2022-03-09 22:21 | DI.VRAD_ITS ---
Addendum created by Hunter Winchester MD on 03/09/2022 10:26:04 PM EST: Comment: This report contains findings that may be critical to patient care. The exam findings were verbally communicated by me to AMI Vargas via telephone conference at 10:24 PM EST on 03/09/2022. The findings were acknowledged and understood. Discussion regarding the left lower lobe infiltrate, small bilateral pleural effusions, and the pneumomediastinum. Typographical error under impression 7. This should read ascending segment. Initial report created on 03/09/2022 10:20:57 PM EST: PROCEDURE INFORMATION: Exam: CTA Chest With Contrast Exam date and time: 03/09/2022 9:30 PM Age: 76 years old Clinical indication: Pain and abnormal findings; Abnormal diagnostic tests; Elevated d-dimer; Prior surgery; Surgery date: 6+ months; Surgery type: Cholecystectomy; Patient HX: L shoulder pain, hypoxia, covid, elev d dimer, R/O pe TECHNIQUE: Imaging protocol: Computed tomographic angiography of the chest with contrast. 3D rendering (Not supervised by radiologist): MIP and/or 3D reconstructed images were created by the technologist. Radiation optimization: All CT scans at this facility use at least one of these dose optimization techniques: automated exposure control; mA and/or kV adjustment per patient size (includes targeted exams where dose is matched to clinical indication); or iterative reconstruction. Contrast material: OMNIPAQUE 350; Contrast volume: 75 ml; Contrast route: INTRAVENOUS (IV); COMPARISON: CT CHEST W 09/03/2021 9:44 AM FINDINGS: Pulmonary arteries: Pulmonary artery is well opacified. No embolism evident. Aorta: Thoracic aorta is normal in course. No dissection. Ascending aorta with mild aneurysmal change at 3.7 x 4 cm AP and transverse. Lungs: Left lower lobe posterior segmental airspace consolidation consistent with an infiltrate. Pleural spaces: Bilateral pleural effusions of small size. These are new since 09/23/2021. Heart: Moderate to severe cardiac enlargement. No pericardial effusion. No coronary artery atherosclerotic calcium visible. Mediastinal space: Small amount of pneumomediastinum. There is a small amount of air seen along the aortic arch on the left side. See series 6, image 16. A small amount of air seen in the pre-vascular space of the mediastinum. See axial series 6, image 18. This is nonspecific in appearance. This may be related to barotrauma from coughing. Lymph nodes: Unremarkable. No enlarged lymph nodes. Diaphragm: Moderate size hiatal hernia. Nonspecific appearance by current analysis. This is also evident on previous study 09/03/2021. Liver: Liver is unremarkable in appearance. Gallbladder and bile ducts: Gallbladder is absent. Pancreas: Visible portion the pancreas unremarkable. Spleen: Spleen is upper limits of normal in size. Adrenal glands: Adrenal glands are unremarkable. Kidneys and ureters: Visible portion of the kidneys bilaterally unremarkable. Bones/joints: Degenerative thoracic spine changes. Dextroscoliosis. Soft tissues: Chest wall soft tissues are unremarkable. Small amount of soft tissue emphysema in the low right neck. IMPRESSION: 1. Left lower lobe infiltrate. 2. Minor bilateral pleural effusions. 3. Small pneumomediastinum. No pneumothorax. 4. Cardiomegaly. No pericardial effusion. 5. Moderate size hiatal hernia. 6. No pulmonary arterial embolism evident. 7. Atherosclerotic thoracic aorta. Mild aneurysmal dilatation of the assay ending segment. Dictated and Authenticated by: Hunter Winchester MD. Ordering:MAIA Mason MD
[2022-03-09 23:34] LABS: Procalcitonin 0.1 ng/mL
[2022-03-09 23:54] LABS: Bilirubin Negative (Negative); Blood Negative (Negative); Clarity Clear (Clear); Glucose Negative (Negative); Ketones Negative (Negative); Leukocyte Esterase Trace (Negative); Nitrite Negative (Negative); Urobilinogen 0.2 EU/dL (Up TO 0.2); pH 5.5 (5-8)
[2022-03-10] VITALS (10 sets, daily range): BP systolic 89–148; BP diastolic 66–79; PULSE 62–82; RESP 11–33
--- NOTE | 2022-03-10 | DI.CT_ITS ---
Exam(s) CT CHEST/ABD WO EXAM: CT CHEST/ABD WO CLINICAL HISTORY: DRINK PO CONTRAST - BARIUM - R/O ESOPHAGEAL PERF. TECHNIQUE: Imaging Protocol: Axial computed tomography images with coronal and sagittal reformatted images were created and reviewed CONTRAST MATERIAL: Intravenous: Omnipaque 350 Contrast volume:100 ml Oral: None COMPARISON: CT CT CHEST PE CTA from 03/09/2022 FINDINGS: CHEST: LUNGS: There is some infiltrate in left lower lobe and a small amount of left pleural fluid. No sign ificant right lung findings. No pneumothorax. MEDIASTINUM: Mild pneumomediastinum noted. Visualized thyroid unremarkable.There is contrast in the esophagus. On the axial images there is a eccentric appearing gas bubble is below the GE junction. However, there is no obvious extravasation of contrast at this level. There is some streaking in the adjacent fat. CARDIAC: Cardiomegaly. No pericardial effusion.Caliber of the thoracic aorta is within normal limits . OSSEOUS: No significant osseous lesions.No acute fractures.. ABDOMEN: There is no ascites. No extravasation of contrast from the stomach. LIVER: There are no focal hepatic lesions nor dilatation of intrahepatic ducts. GALLBLADDER/BILIARY: Gallbladder surgically absent. CBD is not dilated. PANCREAS: No evidence of pancreatic mass nor dilatation of the pancreatic duct. SPLEEN: Spleen is not enlarged. There are no intrasplenic lesions. Splenic and portal veins are bowman nt. ADRENALS: There are no significant adrenal masses. KIDNEYS: No calculi nor hydronephrosis. No solid renal masses. No cysts evident. ABDOMINAL AORTA: The partially visualized abdominal aorta is not enlarged. LYMPH NODES: There is no retroperitoneal nor paraaortic adenopathy. ABDOMINAL WALL: No evidence of significant anterior abdominal wall hernia in the field of view. GI: There is no evidence of bowel obstruction. OSSEOUS: No significant osseous lesions. No acute fractures evident. IMPRESSION: 1. There is some mild edema around the GE junction region which is probably related to the recent blanche aylin at this level. There is no obvious extravasation of contrast from the lumen the esophagus into the mediastinum.. There is mild pneumomediastinum which is often seen with esophageal rupture but ca n also be seen postop. 2. Small left pleural effusion. 3. Previous cholecystectomy. CBD not dilated. 4. RADIATION DOSE DELIVERED: 1,169.01mGy.cm Total DLP DATA REPOSITORY: All CT scans at this facility are submitted to the National Radiology Data Registry (NRDR) Dose Index Registry (DIR) with the [employer] (ACR). RADIATION OPTIMIZATION: All CT scans at this facility use at least one of these dose optimization te chniques: automated exposure control; mA and/or kV adjustment per patient size (includes targeted exa ms where dose is matched to clinical indication); or iterative reconstruction.
[2022-03-10 00:08] LABS: Bacteria Few HPF (Negative); C & S Indicated? No/Sq. Contamination; Crystals Negative HPF (Negative); Epithelial Cells Moderate HPF (Negative); Mucus Negative (Negative); RBC 0-2 HPF (0-2); WBC 0-2 HPF (0-5)
[2022-03-10] MEDS: Ondansetron 4 MG/2 ML VIAL IVP (00:35)
[2022-03-10] MEDS: Omnipaque 350 MG/ML 50 ML BTL PO (01:23)
--- NOTE | 2022-03-10 01:41 | DI.VRAD_ITS ---
PROCEDURE INFORMATION: Exam: CT Chest Without Contrast; Diagnostic Exam date and time: 03/10/2022 12:41 AM Age: 76 years old Clinical indication: Abnormal findings; Abnormal radiologic finding of the abdomen; Radiologic exam and body structure: Concern for esophogeal perf; Prior surgery; Surgery date: 1-6 months; Surgery type: Hiatial hernia repair on thu; Patient HX: Drink po contrast -while scanning R/O esophageal perf from pe study TECHNIQUE: Imaging protocol: Diagnostic computed tomography of the chest without contrast. Radiation optimization: All CT scans at this facility use at least one of these dose optimization techniques: automated exposure control; mA and/or kV adjustment per patient size (includes targeted exams where dose is matched to clinical indication); or iterative reconstruction. Other contrast: Oral, omnipaque 350, 15; COMPARISON: CT CHEST PE CTA 03/09/2022 9:30 PM FINDINGS: Lungs: Posterior lung base atelectatic changes. Pleural spaces: Small bilateral pleural effusions, left larger than right. Heart: Moderate cardiac enlargement. No pericardial effusion. Mediastinal space: Esophagus is opacified with ingested contrast. There is no extravasation. There are changes surrounding the distal esophagus consistent with a hiatal hernia repair. This history of recent surgery is newly provided. The pneumomediastinum which is reported from earlier CTA chest is likely related to the hiatal hernia repair that the patient reportedly had 4-5 days ago. Lymph nodes: Unremarkable. No enlarged lymph nodes. Vasculature: Unremarkable. No aortic aneurysm. Bones/joints: Thoracic spine degenerative changes. No acute skeletal pathology. Soft tissues: Soft tissue emphysema of the neck. More prominent on the right.. IMPRESSION: 1. No evidence of esophageal perforation. No contrast leak into the mediastinum. 2. Recent hiatal hernia repair. This surgery is likely the source of the minor pneumomediastinum. 3. Small bilateral pleural effusions. 4. Bibasilar atelectatic lung changes, left greater than right. 5. Moderate cardiac enlargement. No acute features. 6. Persistent minor pneumomediastinum. 7. Soft tissue emphysema of the neck of mild severity. PROCEDURE INFORMATION: Exam: CT Abdomen Without Contrast Exam date and time: 03/10/2022 12:41 AM Age: 76 years old Clinical indication: Abnormal findings; Abnormal radiologic finding of the abdomen; Radiologic exam and body structure: Concern for esophogeal perf; Prior surgery; Surgery date: 1-6 months; Surgery type: Hiatial hernia repair on wed; Patient HX: Drink po contrast -while scanning R/O esophageal perf from pe study TECHNIQUE: Imaging protocol: Computed tomography of the abdomen without contrast. Radiation optimization: All CT scans at this facility use at least one of these dose optimization techniques: automated exposure control; mA and/or kV adjustment per patient size (includes targeted exams where dose is matched to clinical indication); or iterative reconstruction. Other contrast: Oral, omnipaque 350, 15; COMPARISON: CT PELVIC/LOWER ABD WITHOUT CONT 06/07/2016 9:19 AM FINDINGS: Diaphragm: Recent hiatal hernia repair. Contrast has passed from the esophagus into the stomach. No extravasation of contrast in the upper abdomen. Liver: Liver is normal in size and contour. Gallbladder and bile ducts: Previous cholecystectomy. Pancreas: Mild pancreatic atrophy. Spleen: Spleen is unremarkable. Adrenal glands: Normal. No mass. Kidneys and ureters: Bilateral kidneys are unremarkable. Stomach and bowel: Stomach is unremarkable in contour. No distension. No wall thickening. Small bowel loops in the upper abdomen are unremarkable. Visible large bowel loops are unremarkable. Intraperitoneal space: No free fluid in the upper abdomen. Vasculature: Unremarkable. No abdominal aortic aneurysm. Lymph nodes: Unremarkable. No enlarged lymph nodes. Bones/joints: Old compression fracture of L1. Upper lumbar spine degenerative disc disease. Soft tissues: Unremarkable. IMPRESSION: 1. No acute findings within the upper abdomen. 2. Recent hiatal hernia repair with postoperative changes in the region of the GE junction. No contrast extravasation from the distal esophagus or gastric fundal region. 3. No free fluid in the upper abdomen. 4. Previous cholecystectomy. 5. Old L1 compression fracture. Dictated and Authenticated by: Hunter Winchester MD. Ordering:MAIA Mason MD
[2022-03-10] MEDS: Doxycycline Hyclate 100 MG CAP PO (02:17)
[2022-03-10] MEDS: Amoxicillin 400 MG/Clav. 57 MG 100 ML BTL 10 ML PO (02:40)
== END 2022-03-10 03:17 | disposition home or self-care (01) ==
PROVIDERS: Emergency Provider Physician Assistant; PCP Family Medicine
DX: M25.512 Pain in left shoulder (principal); U07.1 COVID-19; J98.2 Interstitial emphysema; J12.82 Pneumonia due to coronavirus disease 2019; I45.2 Bifascicular block; E11.22 Type 2 diabetes mellitus with diabetic chronic kidney disease; I12.9 Hypertensive chronic kidney disease with stage 1 through stage 4 chronic kidney disease, or unspecified chronic kidney disease; N18.30 Chronic kidney disease, stage 3 unspecified; Z98.890 Other specified postprocedural states
CPT/HCPCS: 71250; 71275; 74150; 80053; 84145; 87635; 87637; 93005; 96361; 96365; 96366; 96375; 99284; 99285; Q0222; 81003; 81015; 83735; 84484; 85025; 85379; 93010; J0131; J2405; J3490; Q9967

== ENCOUNTER 2022-03-21 15:29 | Outpatient (REF) | payer MEDICARE, BC, SELFPAY ==
[2022-03-21 16:56] LABS: Microalb ug/mg Crea 14.7 ug/mg Cr
== END 2022-03-21 15:30 | disposition home or self-care (01) ==
LOC: NCHCN 15:29
PROVIDERS: PCP Family Medicine; Visit Provider Family Medicine
DX: N18.30 Chronic kidney disease, stage 3 unspecified (principal)
CPT/HCPCS: 82043; 82570

== ENCOUNTER 2022-04-05 17:23 | Outpatient (REF) | payer MEDICARE, SELFPAY ==
[2022-04-05 17:26] LABS: Abs Immature Grans 0.03 10^3/uL (0.0-0.06); Absolute Basophil Count 0.04 10^3/uL (0.0-0.2); Absolute Eosinophil Count 0.35 10^3/uL (0.0-0.7); Absolute Monocyte Count 0.52 10^3/uL (0.1-0.8); Basophils % 0.5; Eosinophils % 4.2; HCT 33.7 % (36.0-46.0); HGB 11.4 g/dL (11.2-15.7); Immature Grans % 0.4; Lymphocytes % 13.3; MCH 33.9 pg (27.0-33.0); MCHC 33.8 % (32.0-36.0); MCV 100 fL (80-95); Monocytes % 6.3; Neutrophils % 75.3; Platelet Count 138 10^3/uL (130-400); RBC 3.36 10^6/uL (3.93-5.22); RDW 13.1 % (11.7-14.6); RDW-SD 48.1 fL; WBC 8.24 10^3/uL (4.4-10.8)
[2022-04-05 17:39] LABS: ALT 16 U/L (14-59); AST 14 U/L (15-37); Alkaline Phosphatase 90 U/L (46-116); Anion Gap 10.1 mmol/L (3-11); BUN 22 mg/dL (7-18); Bilirubin, Total 1.3 mg/dL (0.2-1.0); CO2 25.9 mmol/L (21.0-32.0); CREATININE 1.2 mg/dL (0.55-1.02); Calcium 9.2 mg/dL (8.5-10.1); Chloride 105 mmol/L (98-107); Estimated GFR 46.91 (mL/min/1.73m2); Glucose 107 mg/dL (74-106); Potassium 3.4 mmol/L (3.5-5.1); Sodium 141 mmol/L (136-145); Total Protein 6.4 g/dL (6.4-8.2)
[2022-04-05 18:41] LABS: C Diff PCR Negative (Negative)
[2022-04-06 22:59] LABS: Campylobacter PCR Negative (Negative); Salmonella PCR Negative (Negative); Shiga Toxin PCR Negative (Negative); Shigella/Enteroinvasive Ecoli Negative (Negative)
== END 2022-04-05 17:24 | disposition home or self-care (01) ==
LOC: LBN 17:23
PROVIDERS: PCP Family Medicine; Visit Provider Nurse Practitioner Family
DX: R19.7 Diarrhea, unspecified (principal)
CPT/HCPCS: 80053; 87493; 87505; 85025; 87230

== ENCOUNTER 2022-06-10 02:24 | Outpatient (CLI) | payer MEDICARE, SELFPAY ==
--- NOTE | 2022-06-10 | DI.MAMMO_ITS ---
Exam(s) MG MAMMO SCREENING 60 MIN DUR EXAM: MG MAMMO SCREENING 60 MIN DUR CLINICAL HISTORY: PERSONAL H/O BReAST CA, SCREENING, Z12.31. TECHNIQUE: Bilateral full field digital CC and MLO mammographic images were obtained with 3D tomosyn thesis and utilizing computer aided detection (CAD). COMPARISON: Prior mammograms were reviewed. There is apparently a history of prior left breast malignancy. FINDINGS: There has been no significant change in the appearance and distribution of the fibroglandular tissue. There are no surgical clips to denote lumpectomy site. No new significant findings in the right breast. In the left breast on the MLO there is a 9 cm length density possibly significant versus artifact. H owever, this was not evident on prior studies and this is the breast which apparently has had history of prior malignancy. There are no malignant-appearing microcalcification groups in this region. There is no significant architectural distortion nor skin thickening-retraction. IMPRESSION: 1. No radiographic evidence of malignancy in the right breast. 2. Linear left breast finding as described above. Recommend additional views to include spot vinita jason MLO view and straight lateral view of the left breast. Also breast ultrasound. BI-RADS Category 0 - Assessment Incomplete: Need additional imaging evaluation Breast Density - Category B - Scattered areas of fibroglandular density Breast density Category C or D implies that the patient has dense breast tissue. Dense breast tissue can make it harder to find cancer on a mammogram. Dense breast tissue is also associated with an incr eased risk of breast cancer. This information about the result of the mammogram report was provided to the patient to raise their awareness. Use this report when you speak with the patient about their risks for breast cancer, which includes their family history. At that time, you may recommend additional screening tests (Ultrasoun d or MRI) as these tests may add significant information. A negative radiographic report should not delay biopsy if a dominant or clinically suspicious mass is present. Up to ten percent of cancers are not identified on mammography. A negative report may reinforce clinical impression. Adenosis and dense breasts may obscure an underlying neoplasm. False positive reports average 6 to 10%. Patient will receive a letter notifying them of these results.
== END 2022-06-10 02:44 ==
LOC: DI 02:24
PROVIDERS: PCP Family Medicine; Visit Provider Family Medicine
DX: Z12.31 Encounter for screening mammogram for malignant neoplasm of breast (principal); R92.8 Other abnormal and inconclusive findings on diagnostic imaging of breast
CPT/HCPCS: 77063; 77067

== ENCOUNTER 2022-06-25 01:04 | Outpatient (CLI) | payer MEDICARE, SELFPAY ==
--- NOTE | 2022-06-25 | DI.MAMMO_ITS ---
Exam(s) MAMMO SCREEN CALL BACK UNI EXAM: MAMMO SCREEN CALL BACK UNI CLINICAL HISTORY: F/U MAMMO, LINEAR TISSUE DENSITY. TECHNIQUE: Craniocaudal and mediolateral oblique Full Field Digital Mammography views of the left br east with Computer Aided Diagnosis. COMPARISON: Comparison is made with prior examinations. FINDINGS: Mammography/Tomosynthesis: Masses/Architectural Distortion: None seen. The additional view confirms the linear opacity was a ski nfold. Microcalcifictions: No suspicious pleomorphic-type are seen. Skin Thickening/Nipple Retraction: None. IMPRESSION: 1. No evidence of malignancy is noted. 2. Unless there is more urgent need, follow-up screening mammography is recommended, as per [employer] guidelines. 3. The findings were discussed with the patient on the date of the examination. BI-RADS Category 1 - Negative Breast Density - Category B - Scattered areas of fibroglandular density Breast density Category C or D implies that the patient has dense breast tissue. Dense breast tissue can make it harder to find cancer on a mammogram. Dense breast tissue is also associated with an incr eased risk of breast cancer. This information about the result of the mammogram report was provided to the patient to raise their awareness. Use this report when you speak with the patient about their risks for breast cancer, which includes their family history. At that time, you may recommend additional screening tests (Ultrasoun d or MRI) as these tests may add significant information. A negative radiographic report should not delay biopsy if a dominant or clinically suspicious mass is present. Up to ten percent of cancers are not identified on mammography. A negative report may reinforce clinical impression. Adenosis and dense breasts may obscure an underlying neoplasm. False positive reports average 6 to 10%. Patient will receive a letter notifying them of these results.
== END 2022-06-25 01:24 ==
LOC: DI 01:04
PROVIDERS: PCP Family Medicine; Visit Provider Family Medicine
DX: Z12.31 Encounter for screening mammogram for malignant neoplasm of breast (principal); R92.8 Other abnormal and inconclusive findings on diagnostic imaging of breast; N64.59 Other signs and symptoms in breast
CPT/HCPCS: 77063; 77067

== ENCOUNTER 2022-07-23 11:57 | Outpatient (REF) | payer MEDICARE, BC, SELFPAY ==
[2022-07-23 15:58] LABS: HCT 38.4 % (36.0-46.0); HGB 12.6 g/dL (11.2-15.7); MCH 33.3 pg (27.0-33.0); MCHC 32.8 % (32.0-36.0); MCV 102 fL (80-95); MPV 11.8 fL (8.0-11.0); Platelet Count 162 10^3/uL (130-400); RBC 3.78 10^6/uL (3.93-5.22); RDW 13.2 % (11.7-14.6); RDW-SD 49.4 fL; WBC 8.16 10^3/uL (4.4-10.8)
[2022-07-23 16:33] LABS: Hemoglobin A1C 5.8 % (<5.7)
[2022-07-24 10:36] LABS: Calcium 9.7 mg/dL (8.5-10.1)
[2022-07-24 10:37] LABS: ALT 24 U/L (14-59); AST 17 U/L (15-37); Albumin 4.2 g/dL (3.4-5.0); Alkaline Phosphatase 90 U/L (46-116); Anion Gap 5.1 mmol/L (3-11); BUN 35 mg/dL (7-18); Bilirubin, Total 1.1 mg/dL (0.2-1.0); CO2 30.9 mmol/L (21.0-32.0); Chloride 105 mmol/L (98-107); Estimated GFR 58.39 (mL/min/1.73m2); Glucose 116 mg/dL (74-106); Potassium 4.5 mmol/L (3.5-5.1); Sodium 141 mmol/L (136-145); Total Protein 7.3 g/dL (6.4-8.2)
== END 2022-07-23 11:58 | disposition home or self-care (01) ==
LOC: NCHCN 11:57
PROVIDERS: PCP Family Medicine; Visit Provider Family Medicine
DX: R73.03 Prediabetes (principal); N18.30 Chronic kidney disease, stage 3 unspecified; D50.9 Iron deficiency anemia, unspecified
CPT/HCPCS: 80053; 85027; 83036

== ENCOUNTER 2022-10-25 11:00 | Outpatient (REF) | payer MEDICARE, SELFPAY ==
--- OUTSIDE RECORDS SUMMARY | 2022-10-25 11:12 | XMS_ITS ---
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 Role Phone EdwinRoseanna skaggs Unavailable [phone] PROBLEMS Unknown Problems ALLERGIES No Known Allergies ENCOUNTERS Encounter Location Date Diagnosis [facility] 1 [facility] [address] [place] [id number] May, Acute nonintractable headache, unspecified headache type R51 IMMUNIZATIONS No Known Immunizations SOCIAL HISTORY Never Assessed REASON FOR REFERRAL FUNCTIONAL STATUS PLAN OF CARE Activity Details VITAL SIGNS Weight 117 lbs 2018-05-11 Heart Rate 85 /min 2018-05-11 Oximetry 97 % 2018-05-11 Temperature 97.7 degrees Fahrenheit Blood pressure systolic 140 mm Hg Blood pressure diastolic 92 mm Hg 2018-05 MEDICATIONS Medication Instructions Dosage Frequency Start Date End Date Duration Status Spironolactone 25 MG 1 tablet Active Coumadin 1 MG Orally Once a day 1 tablet 24h Active Gabapentin 300 MG Orally Twice daily as needed 1 capsule Active Omeprazole 20 MG Orally 2 x daily (Prilosec) 1 capsule Active Lisinopril 40 MG by mouth once a day 1 tablet 24h Active Levothyroxine Sodium 112 mcg Orally Nightly 1 tab for thyroid replacement Active Allopurinol 100 MG Orally Once a day 1 tablet 24h Active Metoprolol Succinate ER 25 MG Orally Once daily for heart health (Toprol) 1 tablet Active lasix 1 tab Active PROCEDURES No Known procedures RESULTS No Results REASON FOR VISIT New patient presents w/ left ear pain x4 days- Insurance Providers Health Insurance Type Health Plan Insurance Address Health Plan Insurance Phone Health Plan Insurance Name Health Plan Coverage Dates Member ID Patient Relationship to Subscriber Patient Address Patient Phone Patient Name Patient Date of Subscriber ID Subscriber Name Subscriber Date of Group No Medicare [address] [place] [id number] Medicare self Digna Whitney [id number] Blue Cross Blue Shield Medicare Plan [address] [facility] [id number] Blue Cross Blue Shield Medicare Plan self Digna Whitney [id number]
[2022-10-25 15:32] LABS: Abs Immature Grans 0.02 10^3/uL (0.0-0.06); Absolute Basophil Count 0.03 10^3/uL (0.0-0.2); Absolute Eosinophil Count 0.32 10^3/uL (0.0-0.7); Absolute Lymphocyte Count 0.98 10^3/uL (1.2-3.4); Absolute Monocyte Count 0.31 10^3/uL (0.1-0.8); Absolute Neutrophil Count 5.99 10^3/uL (1.2-6.7); Basophils % 0.4; Eosinophils % 4.2; HCT 33.3 % (36.0-46.0); HGB 11.4 g/dL (11.2-15.7); Immature Grans % 0.3; Lymphocytes % 12.8; MCH 33.8 pg (27.0-33.0); MCHC 34.2 % (32.0-36.0); MCV 99 fL (80-95); MPV 11.5 fL (8.0-11.0); Monocytes % 4.1; Neutrophils % 78.2; Platelet Count 135 10^3/uL (130-400); RBC 3.37 10^6/uL (3.93-5.22); RDW 13.5 % (11.7-14.6); RDW-SD 48.9 fL; WBC 7.65 10^3/uL (4.4-10.8)
[2022-10-25 15:36] LABS: ALT 22 U/L (14-59); AST 12 U/L (15-37); Albumin 3.9 g/dL (3.4-5.0); Alkaline Phosphatase 82 U/L (46-116); Anion Gap 10.2 mmol/L (3-11); BUN 29 mg/dL (7-18); Bilirubin, Total 0.7 mg/dL (0.2-1.0); CO2 21.8 mmol/L (21.0-32.0); CREATININE 1.2 mg/dL (0.55-1.02); Calcium 8.9 mg/dL (8.5-10.1); Chloride 109 mmol/L (98-107); Estimated GFR 46.62 (mL/min/1.73m2); Glucose 111 mg/dL (74-106); Potassium 3.9 mmol/L (3.5-5.1); Sodium 141 mmol/L (136-145); Total Protein 6.5 g/dL (6.4-8.2)
[2022-10-25 17:23] LABS: C Diff PCR Negative (Negative)
[2022-10-26 19:22] LABS: Campylobacter PCR Negative (Negative); Salmonella PCR Negative (Negative); Shiga Toxin PCR Negative (Negative); Shigella/Enteroinvasive Ecoli Negative (Negative)
== END 2022-10-25 11:01 | disposition home or self-care (01) ==
LOC: LBN 11:00
PROVIDERS: PCP Family Medicine; Visit Provider Physician Assistant Medical
DX: R19.7 Diarrhea, unspecified (principal)
CPT/HCPCS: 80053; 87329; 87493; 87505; 85025; 87177

== ENCOUNTER 2022-11-13 10:05 | Emergency (ER) | payer MEDICARE, BC, SELFPAY ==
[2022-11-13 10:09] VITALS: BP 161/70; PULSE 70; RESP 18; TEMP 37.2; O2SAT 96
--- NOTE | 2022-11-13 10:36 | W.ED.GENAD ---
Discharge Plan Disposition Patient Disposition: Home Condition: Stable Discharge Details Clinical Impression: Diarrhea Primary Care Provider: Ana Her ED Provider: Cristofer Tang Home Meds and New Rx's Prescriptions: New loperamide 2 mg capsule 2 mg PO Q6H PRN (Reason: loose stool) Qty: 20 0RF Rx Instructions: Take 4mg x1 and then 2mg after each stool q6prn for 2 days Continued anastrozole 1 mg Tablet 1 mg PO DAILY calcium carbonate 600 mg calcium (1,500 mg) Tablet 600 mg PO DAILY ascorbic acid (vitamin C) [Vitamin C] 500 mg Tablet 500 mg PO DAILY ferrous sulfate 325 mg (65 mg iron) Tablet 325 mg PO DAILY magnesium 250 mg Tablet 250 mg PO BID allopurinol 100 mg tablet 200 mg PO DAILY Patient Comments: 02.11.17 Pt states down to Qday.HE cholecalciferol (vitamin D3) 2,000 unit tablet 2,000 unit PO DAILY carvedilol 6.25 mg tablet 6.25 mg PO BID Rx Instructions: must administer with a meal/food spironolactone 25 mg tablet 25 mg PO DAILY cyanocobalamin (vitamin B-12) [Vitamin B-12] 100 MCG tablet 1 tab PO DIRECTED Xarelto 20 mg tablet 20 mg PO DAILY Rx Instructions: must administer with evening meal lisinopril 10 mg tablet 10 mg PO DAILY gabapentin 300 mg capsule 300 mg PO BID Rx Instructions: no abrupt cessation atorvastatin [Lipitor] 40 MG tablet 40 mg PO QPM furosemide 20 mg tablet 40 mg PO DAILY Rx Instructions: may take 1 additional tablet at noon if needed (per PCP) levothyroxine 125 mcg tablet 100 mcg PO DAILY acetaminophen 500 mg tablet 1,000 mg PO Q8H PRN (Reason: pain) Qty: 60 3RF tramadol 50 mg tablet 50 mg PO Q6H PRNQty: 8 0RF Discontinued turmeric 400 mg capsule PO Discharge Instructions Instructions: Acute Diarrhea (ED) Additional Instructions: Please take loperamide as prescribed over the next 2 days for diarrhea. Please follow-up with your primary care physician. Additional outpatient diagnostic testing will be necessary should diarrhea continue. Some of your medications have a side effect of diarrhea and may need to be adjusted. Please discuss this with your primary care physician. Please contact your primary care physician to arrange follow-up. Call today. Return to the ER immediately for any worsening or new concerning symptoms. Referrals: Ana Her MD [Primary Care Provider] - Medical Decision Making 77-year-old female with history of diverticulosis, chronic kidney disease, atrial fibrillation, here with diarrhea for the past 1 month. No abdominal pain other than cramping prior to diarrhea. Abdominal exam benign. Patient is hemodynamically stable and appears well-hydrated. Patient had nondiagnostic work-up at [facility] on 10/25/2022 including stool studies. I reviewed these results. Medical screening exam was performed today and no emergent medical condition identified. Patient will require additional outpatient diagnostic work-up. I have called the patient's primary care office and relayed clinical presentation and need for follow-up. HPI General Mode of arrival: ambulatory. Date/Time Provider Initiated Documentation: 11/13/22 10:16. Limitations to Documentation: no limitations. Information obtained by: patient. HPI Narrative: 77-year-old female with history of diverticulosis, chronic kidney disease, atrial fibrillation, here with diarrhea for the past 1 month. Patient was seen at [facility] on 10/25/2022 and had diagnostic labs including CBC, chemistry and stool studies that were nondiagnostic. Patient continues to have loose stool. Patient notes she has been drinking plenty of fluids to stay hydrated and has been urinating normally. Patient denies abdominal pain. She does note some abdominal cramping before she has diarrhea. No bright red blood per rectum or melena. Related Data Home Medications Medication Instructions Recorded Confirmed atorvastatin 40 mg tablet (Lipitor) 40 mg PO QPM 06/13/13 11/13/22 cyanocobalamin (vitamin B-12) 100 1 tab PO DIRECTED 11/07/15 11/13/22 mcg tablet (Vitamin B-12) allopurinol 100 mg tablet 200 mg PO DAILY 04/13/19 11/13/22 cholecalciferol (vitamin D3) 50 2,000 unit PO DAILY 04/13/19 11/13/22 mcg (2,000 unit) tablet levothyroxine 125 mcg tablet 100 mcg PO DAILY 04/13/19 11/13/22 acetaminophen 500 mg tablet 1,000 mg PO Q8H PRN pain #60 tabs 01/24/20 11/13/22 tramadol 50 mg tablet 50 mg PO Q6H PRN #8 tabs 01/24/20 11/13/22 anastrozole 1 mg tablet 1 mg PO DAILY 04/19/20 09/09/21 ascorbic acid (vitamin C) 500 mg 500 mg PO DAILY 04/19/20 11/13/22 tablet (Vitamin C) calcium carbonate 600 mg calcium 600 mg PO DAILY 04/19/20 11/13/22 (1,500 mg) tablet ferrous sulfate 325 mg (65 mg 325 mg PO DAILY 04/19/20 11/13/22 iron) tablet magnesium 250 mg tablet 250 mg PO BID 04/19/20 11/13/22 carvedilol 6.25 mg tablet 6.25 mg PO BID 05/28/20 11/13/22 spironolactone 25 mg tablet 25 mg PO DAILY 05/28/20 11/13/22 lisinopril 10 mg tablet 10 mg PO DAILY 08/05/22 11/13/22 rivaroxaban 20 mg tablet (Xarelto) 20 mg PO DAILY 08/05/22 11/13/22 furosemide 20 mg tablet 40 mg PO DAILY 09/25/22 11/13/22 gabapentin 300 mg capsule 300 mg PO BID 09/25/22 11/13/22 loperamide 2 mg capsule 2 mg PO Q6H PRN loose stool #20 11/13/22 caps Previous Rx's Medication Instructions Recorded acetaminophen 500 mg tablet 1,000 mg PO Q8H PRN pain #60 tabs 01/24/20 tramadol 50 mg tablet 50 mg PO Q6H PRN #8 tabs 01/24/20 loperamide 2 mg capsule 2 mg PO Q6H PRN loose stool #20 11/13/22 caps Allergies Allergy/AdvReac Type Severity Reaction Status Date / Time No Known Allergies Allergy Verified 11/13/22 10:13 General Stated Complaint: Nausea/Vomit/Diar FRANCINE: 3 Review of Systems All systems reviewed & are unremarkable except as noted in HPI and below Constitutional Constitutional: Denies fever(s) PFSH All Active Problems Diarrhea (Acute) Difficulty in walking, not elsewhere classified (Acute) Other specified peripheral vascular diseases (Acute) Tinea unguium (Acute) Toe pain, right (Acute) Toe pain, left (Acute) Nail dystrophy (Acute) Other specified polyneuropathies (Acute) Peripheral neuropathy (Acute) RACHAEL (obstructive sleep apnea) (Chronic) Leg edema (Acute) Hypothyroidism (Chronic) Hyperlipidemia (Acute) HTN (hypertension) (Chronic) Diabetes (Chronic) Chronic venous insufficiency (Acute) COVID-19 (Acute) Trigger finger, left index finger (Acute) Depo-Medrol injection: 08/13/2020 History of carpal tunnel surgery of right wrist (Acute 01/24/20) Chondrocalcinosis of left knee (Acute) Injected: 01/03/2020, 09/09/2021 Medical History Acute back pain with sciatica Afib s/p lpulm vein isolation 05/2018, Xarelto Anemia, iron deficiency Aortic stenosis congenital bi-cuspid valve Arthritis Back pain Breast cancer left breast Breast cancer in female Carpal tunnel syndrome Cervical polyp Chronic pain of left lower extremity CKD (chronic kidney disease) stage 3, GFR 30-59 ml/min Diarrhea COLÓN (dyspnea on exertion) Fatigue Foot pain, right GERD (gastroesophageal reflux disease) Gout of ankle Hiatal hernia History of blood transfusion Leg cramps Osteopenia PUD (peptic ulcer disease) Sciatica of left side Skin fissure Sleep apnea Spinal stenosis, lumbar Trigger finger, right ring finger Venous stasis Surgical History Cholecystectomy Colonoscopy - MAC (03/17/17) H/O lumbosacral spine surgery Lumbar Foraminotomy L4 History of ankle surgery right w/ screws History of laminectomy Hx of inguinal hernia repair Trigger finger, left little finger s/p release 05/10/2019 Family History Grandmother Colon cancer Mother CAD (coronary artery disease) Father Stroke Sister Pneumonia Brother Drug overdose Maternal Grandfather Colon cancer Social History Smoking/Tobacco Use Status: Never Smoking risk assessment performed?: Yes Alcohol Intake: current Alcohol Intake frequency: a few times a week Alcohol type: beer, wine and hard liquor Drug use: Never Substance use type: does not use Household members: none Housing: house Number of Children: 2 current occupation: Retired Current gender identity: female What type of physical activity do you participate in: independent ambulation Do you feel safe at home: Yes Do you feel safe in your relationship?: Yes Exam Const General: cooperative and no acute distress HENMT Mouth: moist mucous membranes Eyes Conjunctivae: normal conjunctivae Sclera: normal sclerae Resp Auscultation: clear to auscultation bilaterally, no rales, no rhonchi and no wheezes Cardio Rate: regular rate and not tachycardic Rhythm: regular rhythm GI Palpation: soft, not firm, no guarding, no masses, not rigid and nontender Neuro General: patient alert, patient awake and tone normal Extrem General: edema Laterality: bilateral (trace, chronic) Course Vital Signs Vital signs: Vital Signs Temperature 37.2 C 11/13/22 10:09 Pulse 70 11/13/22 10:09 Respiratory Rate 18 11/13/22 10:09 Blood Pressure 161/70 H 11/13/22 10:09 Pulse Oximetry 96 11/13/22 10:09 Temperature 37.2 C 11/13/22 10:09 Temperature Source Temporal Artery Scan 11/13/22 10:09 Pulse 70 11/13/22 10:09 Respiratory Rate 18 11/13/22 10:09 Respiratory Effort Normal, Non-Labored 11/13/22 10:18 Blood Pressure 161/70 H 11/13/22 10:09 Blood Pressure Position Sitting 11/13/22 10:09 Pulse Oximetry 96 11/13/22 10:09 Oxygen Delivery Method Room Air 11/13/22 10:09 Oxygen Flow Rate 0 11/13/22 10:09 PAWSS Have you Been Recently Intoxicated or Drunk Within the Last 30 days?: No Have you Ever Experienced Previous Episodes of Alcohol Withdrawal?: No Have you ever Experienced Withdrawal Seizures?: No Have you ever Experienced Delirium Tremens(DT)s?: No Have you ever undergone Alcohol Rehabilitation Treatment (i.e, inpt ot outpatient treatment programs)?: No Have you ever Experienced Blackouts?: No Have you ever Combined Alcohol with other Downers within the last 90 days?: No Have you ever Combined Alcohol with any other Substance of Abuse during the last 90 days?: No Positive Blood Alcohol level on Presentation? [PCS.BAL]: No Evidence of Increased Autonomic Activity (i.e. HR>120, tremor, sweating, agitation, nausea)?: No Result: 0
== END 2022-11-13 11:01 | disposition home or self-care (01) ==
PROVIDERS: Emergency Provider Student in an Organized Health Care Education/Training Program; PCP Family Medicine
DX: R19.7 Diarrhea, unspecified (principal)
CPT/HCPCS: 99283; 99284

== ENCOUNTER 2022-11-19 10:25 | Outpatient (REF) | payer MEDICARE, SELFPAY ==
[2022-11-19 17:41] LABS: Anion Gap 9.6 mmol/L (3-11); BUN 23 mg/dL (7-18); CO2 27.4 mmol/L (21.0-32.0); CREATININE 0.9 mg/dL (0.55-1.02); Calcium 9.1 mg/dL (8.5-10.1); Chloride 102 mmol/L (98-107); Estimated GFR 65.84 (mL/min/1.73m2); Glucose 116 mg/dL (74-106); Potassium 4.7 mmol/L (3.5-5.1); Sodium 139 mmol/L (136-145); TSH (W/Ref FT4) 0.46 uIU/mL (0.36-3.74); Uric Acid 4.3 mg/dL (2.6-6.0)
== END 2022-11-19 10:26 | disposition home or self-care (01) ==
LOC: NCHCN 10:25
PROVIDERS: PCP Family Medicine; Visit Provider Family Medicine
DX: I12.9 Hypertensive chronic kidney disease with stage 1 through stage 4 chronic kidney disease, or unspecified chronic kidney disease (principal); N18.31 Chronic kidney disease, stage 3a; E03.9 Hypothyroidism, unspecified; M10.079 Idiopathic gout, unspecified ankle and foot
CPT/HCPCS: 80048; 83735; 84443; 84550

== ENCOUNTER → 2022-12-09 12:27 | Outpatient (BNVA) | payer MEDICARE, BC, SELFPAY | PROVIDERS: PCP Family Medicine; Referring Provider Family Medicine; Visit Provider Nurse Practitioner Adult Health | DX: G56.02 Carpal tunnel syndrome, left upper limb (principal) | CPT/HCPCS: 95908; 99203; 99214 ==

== ENCOUNTER → 2022-12-18 09:25 | Outpatient (BNVA) | payer MEDICARE, BC, SELFPAY | PROVIDERS: PCP Family Medicine; Referring Provider Family Medicine; Visit Provider Student in an Organized Health Care Education/Training Program | DX: G56.02 Carpal tunnel syndrome, left upper limb (principal); M65.351 Trigger finger, right little finger | CPT/HCPCS: 20550; J1030 ==

== ENCOUNTER 2022-12-31 07:13 | Day surgery (SDC) | payer MEDICARE, BC, SELFPAY ==
[2022-12-31 07:16] VITALS: BP 142/72; PULSE 75; RESP 18; TEMP 36.4; O2SAT 95
--- NOTE | 2022-12-31 07:34 | W.PM.DSUDISC ---
Date of service: 12/31/22 Time of Service: 07:34 Discharge Plan Disposition Patient Disposition: Home Condition: Good Discharge Details Reason For Visit: L ECTR Attending Provider: Pablito Goetz Primary Care Provider: Ana Her Home Meds and New Rx's Prescriptions: New acetaminophen 500 mg tablet 1,000 mg PO TID Qty: 90 0RF Continued calcium carbonate 600 mg calcium (1,500 mg) Tablet 600 mg PO DAILY ascorbic acid (vitamin C) [Vitamin C] 500 mg Tablet 500 mg PO DAILY ferrous sulfate 325 mg (65 mg iron) Tablet 325 mg PO DAILY magnesium 250 mg Tablet 250 mg PO BID allopurinol 100 mg tablet 200 mg PO DAILY Patient Comments: 02.11.17 Pt states down to Qday.HE cholecalciferol (vitamin D3) 2,000 unit tablet 2,000 unit PO DAILY carvedilol 6.25 mg tablet 6.25 mg PO BID Rx Instructions: must administer with a meal/food spironolactone 25 mg tablet 25 mg PO DAILY cyanocobalamin (vitamin B-12) [Vitamin B-12] 100 MCG tablet 1 tab PO DIRECTED Xarelto 20 mg tablet 20 mg PO DAILY Rx Instructions: must administer with evening meal lisinopril 10 mg tablet 10 mg PO DAILY gabapentin 300 mg capsule 300 mg PO BID Rx Instructions: no abrupt cessation atorvastatin [Lipitor] 40 MG tablet 40 mg PO QPM furosemide 20 mg tablet 40 mg PO DAILY Rx Instructions: may take 1 additional tablet at noon if needed (per PCP) levothyroxine 125 mcg tablet 100 mcg PO DAILY tramadol 50 mg tablet 50 mg PO Q6H PRNQty: 8 0RF Discontinued acetaminophen 500 mg tablet 1,000 mg PO Q8H PRN (Reason: pain) Qty: 60 3RF Discharge Instructions Stand Alone Forms: Bishnu Watts Tunnel Release Referrals: Pablito Goetz MD [ [facility] STAFF PHYSICIAN] - Activity:: Activity as Tolerated Remove Dressings/Wound Care:: 48 hours Shower/Bathe:: 48 hours Diet:: As Tolerated Discharge Orders Discharge Orders: Discharge Order (Routine); Ordered 12/31/22 Ordered By: Rito Giang DS: Diagnosis Discharge Diagnosis (1) Left carpal tunnel syndrome: Status: Acute
[2022-12-31] MEDS: Lactated Ringers 1,000 ML 80 ML IV (08:02)
--- NOTE | 2022-12-31 08:36 | ANES.PREOP_ITS ---
General Info Date of Service Date Performed: 12/31/22 Height: 5 ft 5 in Weight: 85.8 kg Body Mass Index (BMI): 31.4 Surgical Procedure: Operation Date: 12/31/22 10:10 Proposed Procedure Side Surgeon p Wrist ECTR Left Pablito Goetz MD Meds Allergies and Home Medications Allergies Allergy/AdvReac Type Severity Reaction Status Date / Time No Known Allergies Allergy Verified 12/31/22 07:33 Home Medication Medication Instructions Recorded atorvastatin 40 mg tablet (Lipitor) 40 mg PO QPM 06/13/13 cyanocobalamin (vitamin B-12) 100 1 tab PO DIRECTED 11/07/15 mcg tablet (Vitamin B-12) allopurinol 100 mg tablet 200 mg PO DAILY 04/13/19 cholecalciferol (vitamin D3) 50 2,000 unit PO DAILY 04/13/19 mcg (2,000 unit) tablet levothyroxine 125 mcg tablet 100 mcg PO DAILY 04/13/19 acetaminophen 500 mg tablet 1,000 mg PO Q8H PRN pain #60 tabs 01/24/20 tramadol 50 mg tablet 50 mg PO Q6H PRN #8 tabs 01/24/20 ascorbic acid (vitamin C) 500 mg 500 mg PO DAILY 04/19/20 tablet (Vitamin C) calcium carbonate 600 mg calcium 600 mg PO DAILY 04/19/20 (1,500 mg) tablet ferrous sulfate 325 mg (65 mg 325 mg PO DAILY 04/19/20 iron) tablet magnesium 250 mg tablet 250 mg PO BID 04/19/20 carvedilol 6.25 mg tablet 6.25 mg PO BID 05/28/20 spironolactone 25 mg tablet 25 mg PO DAILY 05/28/20 lisinopril 10 mg tablet 10 mg PO DAILY 08/05/22 rivaroxaban 20 mg tablet (Xarelto) 20 mg PO DAILY 08/05/22 furosemide 20 mg tablet 40 mg PO DAILY 09/25/22 gabapentin 300 mg capsule 300 mg PO BID 09/25/22 Current Visit Medications: Current Medications Generic Name Dose Route Start Last Admin Trade Name Freq PRN Reason Stop Dose Admin Acetaminophen 650 mg 12/31/22 07:32 Acetaminophen 325 Mg Tab PO 01/30/23 07:31 Q4H PRN PRN Ringer's Solution 1,000 mls @ 80 mls/hr 12/31/22 06:00 12/31/22 08:02 IV 01/29/23 23:59 80 mls/hr INFUSION RACQUEL Administration Cefazolin Sodium/Dextrose 2 gm in 50 mls @ 100 mls/hr 12/31/22 06:00 Ancef Duplex IVPB 12/31/22 16:00 PREOP RACQUEL IV Miscellaneous Supplies 1 each 12/31/22 06:00 Iv Access IV 01/29/23 23:59 DIRECTED RACQUEL Sodium Chloride 0 ml 12/31/22 06:00 Normal Saline Flush 10 Ml Syr IV 01/29/23 23:59 PRN PRN Sodium Chloride 0 ml 12/31/22 06:00 Normal Saline 10 Ml Vial IJ 01/29/23 23:59 DIRECTED PRN Sterile Water 0 ml 12/31/22 06:00 Water,Injection,Sterile 10 Ml Vial IJ 01/29/23 23:59 DIRECTED PRN PFSH Active Problems Active Problems: Problem Status Onset Code RACHAEL (obstructive sleep apnea) Chronic venous insufficiency HTN (hypertension) Hypothyroidism E03.9 Chondrocalcinosis of left knee M11.262 Diabetes E11.9 History of carpal tunnel surgery of right wrist 01/24/20 Z98.890 Hyperlipidemia E78.5 Peripheral neuropathy G62.9 Trigger finger, left index finger M65.322 COVID-19 U07.1 Leg edema R60.0 Other specified polyneuropathies G62.89 Nail dystrophy L60.3 Toe pain, left M79.675 Toe pain, right M79.674 Tinea unguium B35.1 Other specified peripheral vascular diseases I73.89 Difficulty in walking, not elsewhere classified R26.2 Left carpal tunnel syndrome G56.02 Trigger finger, right little finger M65.351 Medical History Medical History Acute back pain with sciatica Afib s/p lpulm vein isolation 05/2018, Xarelto Anemia, iron deficiency Aortic stenosis congenital bi-cuspid valve Per pt. states she see's mingo hyde, at [facility] Cardiology Arthritis Back pain Breast cancer left breast Breast cancer in female Carpal tunnel syndrome Cervical polyp Chronic pain of left lower extremity CKD (chronic kidney disease) stage 3, GFR 30-59 ml/min Diarrhea COLÓN (dyspnea on exertion) Fatigue Foot pain, right GERD (gastroesophageal reflux disease) Gout of ankle Hiatal hernia History of blood transfusion Leg cramps Osteopenia PUD (peptic ulcer disease) Sciatica of left side Skin fissure Sleep apnea Spinal stenosis, lumbar Trigger finger, right ring finger Venous stasis Surgical History Surgical History (Updated 12/31/22 @ 07:35 by AMI Pollard) Cholecystectomy Colonoscopy - MAC (03/17/17) H/O lumbosacral spine surgery Lumbar Foraminotomy L4 History of ankle surgery right w/ screws History of laminectomy Hx of inguinal hernia repair Trigger finger, left little finger s/p release 05/10/2019 Tobacco Smoking/Tobacco Use Status: Never Alcohol Alcohol Intake: current Alcohol intake frequency: a few times a week Alcohol type: beer, wine and hard liquor Substance Use Substance use: Never Substance use type: does not use Vital Signs and Lab Results Vital Signs Most Recent Vital Signs in EMR: Most Recent Vital Signs Temp Pulse Resp BP Pulse Ox 36.4 C L 75 18 142/72 H 95 12/31/22 07:16 12/31/22 07:16 12/31/22 07:16 12/31/22 07:16 12/31/22 07:16 Point of Care Results Point of Care Results: Finger Stick Blood Glucose 112 12/31/22 07:29 Lab Results Blood Type / Crossmatch: No Data to Display Complete Blood Count: No Data to Display Complete Metabolic Panel: No Data to Display Liver Function Panel: No Data to Display Coagulation Panel: No Data to Display Cardiac Panel: No Data to Display Arterial Blood Gas: No Data to Display Venous Blood Gas: No Data to Display Pancreas Panel: No Data to Display Thyroid Panel: No Data to Display Infectious Disease: No Data to Display Blood Cultures: No Data to Display Toxicology Panel: No Data to Display Imaging and Studies Imaging and Studies Study information below may be from another EMR and interpreted by another provider. Please see original notes in EMR for more complete details. EKG Summary: 03/09/22: Conclusion Sinus rhythm...normal P axis, V-rate 60- 99 RBBB and LAFB...QRSd >120mS, axis(-40,240). Sinus. RBBB. LAFB. No STEMI. Stress Test Summary: 10/07/2021: Stress ECG Conclusion 1. Resting electrocardiogram showed atrial fibrillation, right bundle branch block, left anterior fascicular block 2. Patient exercised on the Johnny protocol and completed a workload of 4.64 METS 3. Normal hemodynamic response to exercise. The patient achieved 93% of predicted heart rate for age 4. Electrocardiographic portion of the test showed no evidence of myocardial ischemia 5. Sporadic PVCs were seen 6. See MPI report Vidal Treadmill Score is 1.2 which is Moderate risk. Echocardiogram Summary: 06/30/2022: [facility] Echo Results (per patient's portal): EF 67%, RV dilated, LA dilated, RA normal. Aortic Stenosis, valve area 1.3cm2, peak aortic valve gradient 48mmHg, mean gradient 27 mmHg. Mild tricuspid regurgitation. TTE follow up 06/27. Anesthesia Assessment and Plan Anesthesia History Personal History: No History of Anesthesia Complications Family History: No Family History of Anesthesia Complications Exercise Tolerance Exercise Tolerance: Metabolic Equivalents>4 Pertinent Negatives Pertinent Negatives: No Major Pulmonary Symptoms or Complaints and No History of CVA/TIA Cardiac & Pulmonary Exam Cardiac Exam: Heart Murmur Present Pulmonary Exam: Clear Bilateral Breath Sounds Implantable Cardiac Device Does patient have a Pacemaker or an ICD?: No Airway Exam Known Difficult Airway: No Mallampati Class: 1 Mouth Opening: Normal (> 3cm) Thyromental Distance: Greater than 3 cm Neck Range of Motion: Full ROM Neck Circumference: Normal Teeth Condition: Normal Dentition ASA Classification ASA Score: ASA 3 Emergency Case?: No NPO Status NPO Status: NPO Clears >2 hours, Solids >8 hours Anesthesia Plan Resuscitation Status: Full Code Anesthesia Technique: Primary Nerve Block Airway Planned: Natural Airway Monitors Used: Standard Monitors
[2022-12-31 09:30] VITALS: BMI 31.4
--- NOTE | 2022-12-31 09:36 | W.PREOPHP ---
Assessment and Plan Assessment and plan (1) Left carpal tunnel syndrome: Status: Acute Assessment and plan: Alma Delia is a 77-year-old who has carpal tunnel syndrome of the left side. She is here today for carpal tunnel release, after successful release on the right side. Once again, I reviewed technical details of carpal tunnel release and that I perform an endoscopic release, but would make a larger, open, incision if necessary for visualization. I discussed the risks of the procedure to include, but not limited to, bleeding, infection, palmar pain, stiffness, damage to nerves, damage to vessels, damage to tendons, weakness, recurrence, and incomplete release. Given these risks, Alma Delia desires to proceed. She does have an extensive cardiac history followed in [place]. Priya Allen CRNA, has reviewed that information and will modify anesthetic plan to include a block to minimize necessary anesthetics for the procedure. History of Present Illness Narrative: Alma Delia is a 77-year-old who has known carpal tunnel of the left side. She has had a successful carpal tunnel is on the right side. She also has a trigger finger on the left ring finger which is status post injection and may be marginally improved. She continues have numbness about the left hand in the median nerve distribution. Given success with carpal tunnel lease on the right side and her ongoing symptoms I offered carpal tunnel release, which she is here for today. No acute changes to her health. She does have known cardiac history of congestive heart failure which is stable. She also takes Xarelto daily which she has stopped for 2 days. Review of Systems All systems reviewed & are unremarkable except as noted in HPI and below PFSH All Active Problems RACHAEL (obstructive sleep apnea) (Chronic) Chronic venous insufficiency (Acute) HTN (hypertension) (Chronic) Hypothyroidism (Chronic) Chondrocalcinosis of left knee (Acute) Injected: 01/03/2020, 09/09/2021 Diabetes (Chronic) History of carpal tunnel surgery of right wrist (Acute 01/24/20) Hyperlipidemia (Acute) Peripheral neuropathy (Acute) Trigger finger, left index finger (Acute) Depo-Medrol injection: 08/13/2020 COVID-19 (Acute) Leg edema (Acute) Other specified polyneuropathies (Acute) Nail dystrophy (Acute) Toe pain, left (Acute) Toe pain, right (Acute) Tinea unguium (Acute) Other specified peripheral vascular diseases (Acute) Difficulty in walking, not elsewhere classified (Acute) Left carpal tunnel syndrome (Acute) S/P L ECTR: 12/31/2022 Trigger finger, right little finger (Acute) Injection: 12/18/2022 Medical History Acute back pain with sciatica Afib s/p lpulm vein isolation 05/2018, Xarelto Anemia, iron deficiency Aortic stenosis congenital bi-cuspid valve Per pt. states she see's mingo hyde, at [facility] Cardiology Arthritis Back pain Breast cancer left breast Breast cancer in female Carpal tunnel syndrome Cervical polyp Chronic pain of left lower extremity CKD (chronic kidney disease) stage 3, GFR 30-59 ml/min Diarrhea COLÓN (dyspnea on exertion) Fatigue Foot pain, right GERD (gastroesophageal reflux disease) Gout of ankle Hiatal hernia History of blood transfusion Leg cramps Osteopenia PUD (peptic ulcer disease) Sciatica of left side Skin fissure Sleep apnea Spinal stenosis, lumbar Trigger finger, right ring finger Venous stasis Surgical History Cholecystectomy Colonoscopy - MAC (03/17/17) H/O lumbosacral spine surgery Lumbar Foraminotomy L4 History of ankle surgery right w/ screws History of laminectomy Hx of inguinal hernia repair Trigger finger, left little finger s/p release 05/10/2019 Family History Grandmother Colon cancer Mother CAD (coronary artery disease) Father Stroke Sister Pneumonia Brother Drug overdose Maternal Grandfather Colon cancer Social History Smoking/Tobacco Use Status: Never Smoking risk assessment performed?: Yes Alcohol Intake: current Alcohol Intake frequency: a few times a week Alcohol type: beer, wine and hard liquor Drug use: Never Substance use type: does not use Household members: none Housing: house Number of Children: 2 current occupation: Retired Current gender identity: female What type of physical activity do you participate in: independent ambulation Do you feel safe at home: Yes Do you feel safe in your relationship?: Yes Meds Allergies and Home Medications Allergies Allergy/AdvReac Type Severity Reaction Status Date / Time No Known Allergies Allergy Verified 12/31/22 07:33 Home Medications Medication Instructions Recorded Confirmed Type atorvastatin 40 mg tablet (Lipitor) 40 mg PO QPM 06/13/13 12/31/22 History cyanocobalamin (vitamin B-12) 100 1 tab PO DIRECTED 11/07/15 12/31/22 History mcg tablet (Vitamin B-12) allopurinol 100 mg tablet 200 mg PO DAILY 04/13/19 12/31/22 History cholecalciferol (vitamin D3) 50 2,000 unit PO DAILY 04/13/19 12/31/22 History mcg (2,000 unit) tablet levothyroxine 125 mcg tablet 100 mcg PO DAILY 04/13/19 12/31/22 History acetaminophen 500 mg tablet 1,000 mg PO Q8H PRN pain #60 tabs 01/24/20 12/31/22 Rx tramadol 50 mg tablet 50 mg PO Q6H PRN #8 tabs 01/24/20 12/29/22 Rx ascorbic acid (vitamin C) 500 mg 500 mg PO DAILY 04/19/20 12/31/22 History tablet (Vitamin C) calcium carbonate 600 mg calcium 600 mg PO DAILY 04/19/20 12/31/22 History (1,500 mg) tablet ferrous sulfate 325 mg (65 mg 325 mg PO DAILY 04/19/20 12/31/22 History iron) tablet magnesium 250 mg tablet 250 mg PO BID 04/19/20 12/31/22 History carvedilol 6.25 mg tablet 6.25 mg PO BID 05/28/20 12/31/22 History spironolactone 25 mg tablet 25 mg PO DAILY 05/28/20 12/31/22 History lisinopril 10 mg tablet 10 mg PO DAILY 08/05/22 12/31/22 History rivaroxaban 20 mg tablet (Xarelto) 20 mg PO DAILY 08/05/22 12/29/22 History furosemide 20 mg tablet 40 mg PO DAILY 09/25/22 12/31/22 History gabapentin 300 mg capsule 300 mg PO BID 09/25/22 12/31/22 History Exam Narrative Exam Narrative: No acute distress. Alert and orient x3. Sitting comfortably in the chair. Breathing without audible distress. Lungs are clear to auscultation bilaterally. Heart rate is regular, rhythm slightly irregular. Results Last Vital Signs Temp 36.4 C L 12/31/22 07:16 Pulse 75 12/31/22 07:16 Resp 18 12/31/22 07:16 BP 142/72 H 12/31/22 07:16 Pulse Ox 95 12/31/22 07:16
[2022-12-31] MEDS: ceFAZolin 2 GM/50 ML BAG IVPB (09:45)
[2022-12-31] MEDS: Lidocaine 1% Pres-Free W/EPI 1/200,000 30 ML VIAL (10:12)
[2022-12-31 10:17] VITALS: BP 134/69; PULSE 77; RESP 16; TEMP 36.4; O2SAT 94
--- NOTE | 2022-12-31 10:24 | ANES.NERVE_ITS ---
Nerve Block Single Injection Procedure Date and Time Date Performed: 12/31/22 Procedure Start: 09:48 Location Where Procedure Performed Procedure Location: Operating Room Procedure Stop: 09:58 Reason Performed: Other (Primary Anesthetic) Requesting Provider: Pablito Goetz Timeout Performed Timeout Performed: Yes Monitoring Used ECG, Blood Pressure, SpO2, ETCO2 and See EMR for corresponding vital signs Sterility Sterility: Hand Hygiene, Surgical Cap, Surgical Mask, Sterile Gloves and Chlorhexidine Sedation Given During Procedure Sedation Given (Indicate Dose Given): Versed IV Dose:: 1mg and Fentanyl IV Dose:: 50mcg Patient Mental Status Patient Mental Status: Sedate with meaningful communication Nerve Block 1st Nerve Block: Laterality: Left Block Type: Median Ultrasound Image Saved?: Yes Needle / Catheter Used: Other (25g 1 1/2 inch) Local Anesthetic Bolus (Indicate Dose Given): Lidocaine used for local infiltration of skin, Injected in 3-5ml increments after negative blood aspiration and Lidocaine 2% Dose:: 3mL Additives (Indicate Dose Given): None Ultrasound: Sterile probe cover and gel used Nerve Stimulator: Not Used Paresthesia: None Procedure Tolerated: No Complications Procedure Outcome: Successful Performed By: Priya Allen 2nd Nerve Block: Laterality: Left Block Type: Ulnar Ultrasound Image Saved?: Yes Needle / Catheter Used: Other (25g, 1 1/2 inch) Local Anesthetic Bolus (Indicate Dose Given): Lidocaine used for local infiltration of skin, Injected in 3-5ml increments after negative blood as piration and Lidocaine 2% Dose:: 4mL Additives (Indicate Dose Given): None Ultrasound: Sterile probe cover and gel used Nerve Stimulator: Not Used Paresthesia: None Procedure Tolerated: No Complications Procedure Outcome: Successful Performed By: Priya Allen
[2022-12-31 10:55] VITALS: BP 129/81; PULSE 64; RESP 18; TEMP 36.4; O2SAT 98
--- NOTE | 2022-12-31 12:04 | W.ANESPOSTOP ---
Postoperative Evaluation Date, Time and Location Date Performed: 12/31/22 Time Performed: 10:35 Patient Location: Day Surgery Unit Vital Signs Most Recent Imported Vital Signs: Most Recent Vital Signs Temp Pulse Resp BP Pulse Ox 36.4 C L 64 18 129/81 98 12/31/22 10:55 12/31/22 10:55 12/31/22 10:55 12/31/22 10:55 12/31/22 10:55 Pain Score Most Recent Pain Score: Most Recent Pain Score Pain Level 0 12/31/22 10:55 Assessment Mental Status: Awake (Alert & Oriented to Patient Baseline) Airway and Respiratory Function: Patent airway with normal (patient baseline) respiratory exam Cardiovascular Function: Hemodynamically Stable Hydration Status: Adequately Hydrated Nausea & Vomiting: No Nausea or Vomiting Pain: Pt. Denies Any Pain Peripheral Nerve Block: Regional nerve block not resolved at time of post operative discharge
--- NOTE | 2022-12-31 14:11 | W.PM.OP ---
Date of service: 12/31/22 Time of Service: 10:30 Operative Note Operative Note DATE OF PROCEDURE: 12/31/22 PRE-OP DIAGNOSIS: Left Carpal Tunnel Syndrome POST-OP DIAGNOSIS: same PROCEDURE: Left Endoscopic Carpal Tunnel Release SURGEON: Pablito Goetz ANESTHESIA TYPE: MAC and Primary Nerve Block Refer to Anesthesia Record ESTIMATED BLOOD LOSS: 0 PATHOLOGY: none sent TOURNIQUET TIME: 4 COMPLICATIONS: None Patient was transported to: same day Patient's condition: stable Indications: I have seen Alma Delia in clinic for symptoms of carpal tunnel syndrome. The numbness, tingling, and pain limited function. Clinical exam findings with nerve conduction tests confirmed the diagnosis of carpal tunnel syndrome. Nonoperative measures such as bracing, time, activity modifications had been tried but disability and pain persisted. I discussed carpal tunnel release with the patient. I reviewed the risks of the procedure to include, but not limited to, bleeding, infection, pain, stiffness, incomplete release, damage to nerves or vessels, persistent numbness, recurrence. Despite these risks, the patient elected to proceed. Findings: There was tightened carpal tunnel. This was dilated and released successfully with the endoscopic with increased space within the tunnel. The antebrachial fascia was released proximally freeing the median nerve at the wrist. Procedure Description: Alma Delia was greeted in the preoperative holding area where the correct side was identified and marked. The consent was reviewed with the patient and signed. The history and physical was updated. All questions were answered. She was taken back to the operating room. The patient was placed into the supine position on the operating room table with the left arm on an arm board. A nonsterile tourniquet was placed high onto the arm. All bony prominences were well padded. Prophylactic antibiotics in the form of Cefazolin were administered. The left arm was then prepped with Chloraprep and draped in a standard fashion with stockinette and extremity drape. A timeout to confirm correct identity, side and site, procedure, allergies, anesthesia, and medical concerns was performed. The surgical site was marked in the volar wrist creases in line with the radial border of the fourth ray. This area was anesthetized with approximately 6cc of 1% Lidocaine with Epinephrine, buffered with Sodium Bicarbonate. The limb was then exsanguinated with an Esmarch. The skin was incised with a 15 blade, approximately 1cm. The skin only was cut and the deeper tissue was dissected bluntly with a tenotomy scissor, avoiding passing nerve and venous structures. The fascia was penetrated and opened bluntly. A two-prong skin hook was placed under this proximal fascial edge. A series of hamate finders were used to identify and dilate the carpal tunnel. Synovial elevator was used to free synovial attachments to the underside of the transverse carpal ligament. My thumb was kept in the palm to juan the distal extent of the carpal tunnel and correctly position the hand. The Microaire endoscope was inserted without difficulty and without resistance. Excellent visualization showed horizontally running fibers of the transverse carpal ligament (TCL). The distal extent of the TCL was visualized and the end of the scope palpated with the thumb. The blade was elevated and withdrawn from distal to proximal. The TCL was split into two flaps. The endoscope was reinserted to confirm complete release and any remnant ligament was incised. The scope was withdrawn and the proximal aspect of the carpal tunnel was grossly inspected and appeared release with the median nerve visible. The antebrachial fascia at the level of the wrist was then freed from the overlying skin and then the underlying median nerve with blunt dissection. This was transected longitudinally for about 3cm proximal to the wrist incision. The wound was then irrigated with easy flow of irrigant distally and proximally. The incision was closed with a single 4-0 Nylon suture. The wound was dressed with Xeroform, Gauze, Kerlix and Adal. The tourniquet was deflated with the initial dressing and held with some pressure. Blood flow returned easily to all digits with capillary refill less than 2 seconds. The patient tolerated the procedure well and was returned to the Same Day Surgery area in a stable condition suffering no known complication.
== END 2022-12-31 11:18 | disposition home or self-care (01) ==
PROVIDERS: PCP Family Medicine; Visit Provider Student in an Organized Health Care Education/Training Program
PROC: 01N54ZZ Release Median Nerve, Percutaneous Endoscopic Approach (ICD-10-PCS; CPT 29848; principal; 2022-12-31 10:00)
DX: G56.02 Carpal tunnel syndrome, left upper limb (principal)
CPT/HCPCS: 29848; 76942; J0690; J2250; J2405; J3010

== ENCOUNTER → 2023-01-09 08:44 | Outpatient (BNVA) | payer MEDICARE, BC, SELFPAY | PROVIDERS: PCP Family Medicine; Referring Provider Family Medicine; Visit Provider Student in an Organized Health Care Education/Training Program | DX: Z47.89 Encounter for other orthopedic aftercare (principal); R20.0 Anesthesia of skin; R60.0 Localized edema ==

== ENCOUNTER 2023-08-05 09:32 | Outpatient (REF) | payer MEDICARE, BC, SELFPAY ==
[2023-08-05 15:25] LABS: HCT 35.5 % (36.0-46.0); HGB 11.7 g/dL (11.2-15.7); MCH 34.2 pg (27.0-33.0); MCV 104 fL (80-95); MPV 11.6 fL (8.0-11.0); Platelet Count 144 10^3/uL (130-400); RBC 3.42 10^6/uL (3.93-5.22); RDW 13.6 % (11.7-14.6); RDW-SD 51.3 fL; WBC 8.45 10^3/uL (4.4-10.8)
[2023-08-05 15:37] LABS: ALT 22 U/L (14-59); AST 20 U/L (15-37); Alkaline Phosphatase 74 U/L (46-116); Anion Gap 8.9 mmol/L (3-11); BUN 27 mg/dL (7-18); CO2 28.1 mmol/L (21.0-32.0); CREATININE 1.1 mg/dL (0.55-1.02); Calcium 8.8 mg/dL (8.5-10.1); Chloride 106 mmol/L (98-107); Estimated GFR 51.75 (mL/min/1.73m2); Glucose 97 mg/dL (74-106); Potassium 4.7 mmol/L (3.5-5.1); Sodium 143 mmol/L (136-145); Total Protein 6.5 g/dL (6.4-8.2)
[2023-08-05 15:59] LABS: Hemoglobin A1C 5.5 % (<5.7)
== END 2023-08-05 09:33 | disposition home or self-care (01) ==
LOC: NCHCN 09:32
PROVIDERS: PCP Family Medicine; Visit Provider Family Medicine
DX: N18.30 Chronic kidney disease, stage 3 unspecified (principal); R73.03 Prediabetes; D64.9 Anemia, unspecified
CPT/HCPCS: 80053; 85027; 83036

== ENCOUNTER → 2023-08-24 02:29 | Outpatient (CLI) | payer MEDICARE, BC, SELFPAY ==
--- NOTE | 2023-08-24 | DI.DEXA_ITS ---
Exam(s) XR DEXA BONE DENSITY W/WO VERONICA EXAM: XR DEXA BONE DENSITY W/WO VERONICA CLINICAL HISTORY: OSTEOPENIA,M85.88 TECHNIQUE: COMPARISON: DX DEXA BONE DENSITY WITH VERONICA from 10/28/2016 FINDINGS: Lateral Spine Image: There are stable compression deformities at L1 and L3. Left hip: Total T-Score: -0.9. This compares to -1.3 on the prior examination. Total Z-Score: 1.1 T- and Z-scores: Within normal limits. Lumbar Spine: Total T-Score: 0.2 this compares to 1.0 on the prior examination. Total Z-Score: 2.9 T- and Z-scores: Within normal limits. There is osteoporosis seen in the right forearm with a total T-score of -3.1. IMPRESSION: Osteoporosis in the right forearm.
--- NOTE | 2023-08-24 | DI.MAMMO_ITS ---
Exam(s) MG MAMMO SCREENING 60 MIN DUR EXAM: MG MAMMO SCREENING 60 MIN DUR CLINICAL HISTORY: SCREENING,Z12.31,PERSONAL H/O BREAST CA. TECHNIQUE: Craniocaudal and mediolateral oblique Full Field Digital Mammography views of the bilater al breast with Computer Aided Diagnosis followed by Tomosynthesis. COMPARISON: Comparison is made with prior examinations. FINDINGS: Mammography/Tomosynthesis: Masses/Architectural Distortion: None seen. Microcalcifictions: No suspicious pleomorphic-type are seen. Skin Thickening/Nipple Retraction: None. IMPRESSION: 1. No evidence of malignancy is noted. 2. Unless there is more urgent need, follow-up screening mammography is recommended, as per [place] [employer] guidelines. 3. The findings were discussed with the patient on the date of the examination. BI-RADS Category 1 - Negative Breast Density - Category B - Scattered areas of fibroglandular density Breast density Category C or D implies that the patient has dense breast tissue. Dense breast tissue can make it harder to find cancer on a mammogram. Dense breast tissue is also associated with an incr eased risk of breast cancer. This information about the result of the mammogram report was provided to the patient to raise their awareness. Use this report when you speak with the patient about their risks for breast cancer, which includes their family history. At that time, you may recommend additional screening tests (Ultrasoun d or MRI) as these tests may add significant information. A negative radiographic report should not delay biopsy if a dominant or clinically suspicious mass is present. Up to ten percent of cancers are not identified on mammography. A negative report may reinforce clinical impression. Adenosis and dense breasts may obscure an underlying neoplasm. False positive reports average 6 to 10%. Patient will receive a letter notifying them of these results.
== END ==
PROVIDERS: PCP Family Medicine; Visit Provider Family Medicine
DX: M85.88 Other specified disorders of bone density and structure, other site (principal); Z12.31 Encounter for screening mammogram for malignant neoplasm of breast; Z13.820 Encounter for screening for osteoporosis
CPT/HCPCS: 77063; 77067; 77080

== ENCOUNTER 2023-10-14 11:34 | Outpatient (REF) | payer MEDICARE, BC, SELFPAY ==
[2023-10-14 14:51] LABS: HCT 32.5 % (36.0-46.0); HGB 10.9 g/dL (11.2-15.7); MCH 33.9 pg (27.0-33.0); MCHC 33.5 % (32.0-36.0); MCV 101 fL (80-95); MPV 12.8 fL (8.0-11.0); Platelet Count 133 10^3/uL (130-400); RBC 3.22 10^6/uL (3.93-5.22); RDW 13.9 % (11.7-14.6); RDW-SD 50.7 fL; WBC 8.22 10^3/uL (4.4-10.8)
[2023-10-14 15:16] LABS: Anion Gap 12.7 mmol/L (3-11); BUN 49 mg/dL (7-18); CO2 20.3 mmol/L (21.0-32.0); CREATININE 1.9 mg/dL (0.55-1.02); Calcium 9.3 mg/dL (8.5-10.1); Chloride 104 mmol/L (98-107); Estimated GFR 26.69 (mL/min/1.73m2); Glucose 105 mg/dL (74-106); Potassium 5.1 mmol/L (3.5-5.1); Sodium 137 mmol/L (136-145)
== END 2023-10-14 11:35 | disposition home or self-care (01) ==
LOC: NCHCN 11:34
PROVIDERS: PCP Family Medicine; Visit Provider Family Medicine
DX: Z01.818 Encounter for other preprocedural examination (principal)
CPT/HCPCS: 80048; 85027

== ENCOUNTER 2023-11-18 14:49 | Inpatient (IN) | payer MEDICARE, BC, SELFPAY ==
[2023-11-18] VITALS (49 sets, daily range): BP systolic 116–154; BP diastolic 48–113; PULSE 78–124; RESP 16–31; TEMP 36.6; O2SAT 91–97
--- NOTE | 2023-11-18 14:45 | RT.EKG_ITS ---
APPROVED REPORT Exam: Resting ECG Reason for Exam: leg edema Patient Location: E HR:112 bpm ECG Measurements Heart Rate 112 AXIS MN [id number] P [id number] QRSd 143 QRS -73 QT 383 T 45 QTc 523 Conclusion Atrial fibrillation...? atrial activity RBBB and LAFB...QRSd >120mS, axis(-40,240) Probable left ventricular hypertrophy...(RaVL+SV3)xQRSd >300
--- OUTSIDE RECORDS SUMMARY | 2023-11-18 15:07 | XMS_ITS | Continuity of Care Document ---
Author Organization [place] - [facility] Address [address] [place] [address] Care Team Providers Care Cad Draftsman Name Role Phone GABINODC Experimental Mechanic Electrical [facility] Orthopedic Surgeon [facility] Sleep Medicine [facility] Director Employee Safety And Health Assessment No assessment recorded. Plan of Treatment Reminders Order Date Submit Date Provider Last Modified By Organization Details Last Modified Time Details Appointments Acute 10 2023 01:17P M FAY YORK Not available Not available Not available Follow Up 2023 08:40A M Ana Wade Not available Not available Not available Lab None recorded . Referral None recorded . Procedures None recorded . Surgeries None recorded . Imaging None recorded . Medication Orders None recorded . Patient TargetsNo targets recorded. Patient InstructionsNo instructions recorded. 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 Physical Therapist Referral for Left side sciatica back and leg pain, poor balance. Unable to swim regularly as the pool is closed. Would benefit from senior program. Referring Physician: Ana Wade Family Medicine, Encounter Date: 07/20/2023 Formula Checker Referral for Dec reased hearing Increasing trouble hearing, has postponed evaluation due to perceived inability to afford hearing aides. Referring Physician: Ana Wade Family Medicine, Encounter Date: 08/12/2023 Experimental Mechanic Electrical Referral for Bi cuspid aortic valve She has been followed by cardiology at [facility] (she moved to [place] from the [facility] few years ago) and would like to establish care with a local optical systems engineer. Her most recent July 2023 cardiology note summarizes her cardiac history of atrial fibrillation and bicuspid valve with . 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 She was to have follow up ECHO in [place]. Xarelto was to be on hold until then. Referring Physician: Ana Wade, Family Medicine, Encounter Date: 11/18/2023 Results Created Date Observation Date Name Description Value Unit Range Abnormal Flag LastModifiedBy Organization Detail LastModifiedTime 11/04/19 24 10/14/2023 rhyth m strip , EKG* No observ ation record ed. [email or web address] Not Available 11/06/2023 10:18:08 Result Notes None recorded. Problems Name Status Onset Date Resolution Date Notes Provider Name and Address Organization Details Recorded Time [facility] 10[facility]59 Essential hypertension Active 1959 EVIE shaw, [facility] 4 10:29:36 Hyperlipidemi a Active 1959 on statin MD [address], [place], [address] , [facility] 4 20:35:18 Spinal stenosis of lumbar region Active 2012 s/p lumbar foraminotomy L4 MD [address], [place], [address] , [facility] 4 20:36:41 Sleep apnea Active 2012 on CPAP MD [address], [place], [address] , [facility] 4 20:39:31 Gastroesophag eal reflux disease without esophagitis Completed 195908/12/2023 Removal Reason: resolved with surgical repair of HH MD [address], [place], [address] , [facility] 4 10:41:24 Family history of malignant neoplasm of digestive organ Active [address], [place], [address] , [facility] 4 20:37:03 Paresthesia Completed 201412/01/2014 11/27/2014 - Comments only - Ana Wade MD - check B12 and folate Problem Code: R20.2; Problem Code Type: ICD-10; Not Available [facility] 3 05:53:48 Adult health examination Active [address], [place], [address] , [facility] 4 20:33:34 Pre-surgery evaluation Completed 201510/03/2015 09/03/2015 - Comments only - Ana Wade MD - Her chronic medical problems are all stable. She has no chest pain, and no symptoms of significant aortic stenosis or heart failure. She is already on chronic betablockers which should be continued in the cinthia operative time. She is stable for stated surgery. Problem Code: Z01.818; Problem Code Type: ICD-10; Not Available [facility] 3 05:53:48 Localized edema Completed 201501/29/2016 12/13/2015 - Comments only - Ana Wade MD - and some on left as well, will check BMP. 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 Referral is made to physical therapy. She will continue on the increased dose of Naprosyn and gabapentin, and once the pain improves we will start to wean back the gabapentin to 300 mg 3 times daily She has enough Ultram from her discharge for now. Problem Code: M79.605; Problem Code Type: ICD-10; EVIE shaw, [place] - [facility] 4 10:32:00 Epidermoid cyst of skin Completed 201611/14/2016 10/16/2016 - Comments only - Ana Wade MD - Inflamed, I suggested hot packing, if not resolving we can refer to Dr. Vieyra for removal. Problem Code: L72.3; Problem Code Type: ICD-10; Not Available [facility] 3 05:53:49 Chronic ulcer of foot Completed 201601/16/2017 12/17/2016 - Comments only - Ana Wade MD - Due to injury. This does appear to have some granulation tissue and to be healing. She is given a prescription for Keflex to take only if erythema seems to be extending. Problem Code: L97.509; Problem Code Type: ICD-10; Not Available [facility] 3 05:53:49 Diarrhea Completed 201602/10/2017 02/04/2017 - Comments only - Ana Wade MD - Persistent over several months, we will collect stool for C. difficile, Giardia, culture, and lactoferrin Problem Code: R19.7; Problem Code Type: ICD-10; MD [address], [place], [address] , [facility] 4 21:03:03 Polyp of cervix Active 2016 EVIE shaw [place] - [facility]. 4 10:32:21 Primary malignant neoplasm of female breast Active 2016 invasive mucinous intermediate grade, s/p partial mastectomy, on Anastrazole. 6 mm PT1NO E2P2 poistive, HER2 negative MD [address], [place], [address] , [facility], [facility] 4 20:38:49 Pain in left lower limb Active 2016 EVIE shaw, [facility]. 4 10:32:00 Pain in thoracic spine Active 2016 EVIE shaw [facility] 4 10:32:06 Spasm Active 2017 EVIE shaw, [facility], [facility]. 4 10:33:28 Abdominal distension, gaseous Completed 201703/08/2018 Problem Code: R14.0; Problem Code Type: ICD-10; Not Available [facility] 3 05:53:50 Cellulitis of toe Completed 201808/12/2018 Problem Code: L03.039; Problem Code Type: ICD-10; Not Available [facility] 3 05:53:51 Other idiopathic peripheral neuropathy NOS Active 2018 Danica shaw, [facility] 4 14:36:02 Tachycardia Completed 201811/25/2018 Problem Code: R00.0; Problem Code Type: ICD-10; Not Available [facility] 3 05:53:51 Pre-surgery evaluation Completed 201811/25/2018 Problem Code: Z01.818; Problem Code Type: ICD-10; Not Available [facility] 3 05:53:51 Iron deficiency anemia Active 2019 on oral iron- elevated MCV: normal B12 2021, normal folate [address], [place], [address] , [facility] 4 20:54:37 Lumbago with sciatica Completed 201903/16/2020 02/24/2020 - Comments only - Vygiuliana Pinon SUPERINTENDENT PRESSURE - Likely aggravated by increased cleaning/lift ing in preparation for family visit. No red flags on physical exam, VS normal. As she will be traveling by plane, prescribed tramadol 50 mg - 2 tablets only for pain during travel (reviewed risks with this medication, including increased risk of fall and sedation- she will be using a wheelchair when traveling in airport with assistance by airline staff); also recommended use of lidocaine patch during flight. Reviewed proper tylenol dosing and risks with this medication. Provided handout on exercises to be done on flight. Advised use of heating pad for comfort (not to be used with lidocaine patches) and exercise/stre tches as tolerated. Referral made to Ricardo MARQUEZ Reviewed red flags requiring emergency care. Problem Code: M54.40; Problem Code Type: ICD-10; Not Available [facility] 3 05:53:52 Right side sciatica Active 2019 EVIE shaw, [facility] 4 10:33:09 Left side sciatica Active 2019 ANA WADE MD [address], [facility] [address] , [facility] 4 17:20:20 Diaphragmatic hernia Completed 202108/11/2023 Removal Reason: s/p repair MD [address], [place] [id number] , [facility] 4 20:50:39 History of SARS-CoV-2 Completed 202104/04/2022 03/21/2022 - Comments only - Ana Wade MD - testing is negative today in the office. Still some fatigue but otherwise recovering. Did get MAB. Already had covid bivalent booster prior to illness Problem Code: Z86.16; Problem Code Type: ICD-10; Not Available [facility] 3 05:53:53 Diarrhea Completed 202104/18/2022 Problem Code: R19.7; Problem Code Type: ICD-10; MD [address], [facility] [address] , [facility] 4 21:03:02 Screening mammography Completed 202208/11/[address], [place], [address] , [facility] 4 20:36:56 Carpal tunnel syndrome of left wrist Completed 202201/23/2023 Problem Code: G56.02; Problem Code Type: ICD-10; Not Available [facility] 4 05:37:46 Diarrhea Active 2022 started colestipol 01/[address], [place], [address] , [facility] 4 21:03:02 Carpal tunnel syndrome of right wrist Completed 201803/19/2020 Problem Code: G56.01; Problem Code Type: ICD-10; Not Available [facility] 3 05:53:55 Pain of left knee joint Completed 202107/30/2022 Problem Code: M25.562; Problem Code Type: ICD-10; Not Available [facility] 3 05:53:55 Hypersomnia Completed 201311/27/2014 Problem Code: 780.54; Problem Code Type: ICD-9; Not Available [facility] 3 05:53:56 Screening for disorder Completed 201909/11/2021 Problem Code: Z13.9; Problem Code Type: ICD-10; Not Available [facility] 3 05:53:56 Anemia Completed 201903/19/2020 Problem Code: D64.9; Problem Code Type: ICD-10; Not Available [facility] 3 05:53:56 Long-term current use of anticoagulant Completed 201709/01/2018 Problem Code: Z79.01; Problem Code Type: ICD-10; Not Available [facility] 3 05:53:57 Chronic rhinitis Completed 202108/12/2021 Problem Code: J31.0; Problem Code Type: ICD-10; Not Available [facility] 3 05:53:57 Impaired fasting glycemia Completed 201401/28/2023 Not Available [facility] 3 05:53:57 Fatigue Completed 201903/19/2020 Problem Code: R53.83; Problem Code Type: ICD-10; Not Available [facility] 3 05:53:58 Upper respiratory tract infection caused by Influenza A Completed 201707/02/2017 Problem Code: J09.x2; Problem Code Type: ICD-10; Not Available [facility] 3 05:53:59 Diarrhea Completed 201709/01/2018 ANA WADE MD [address], [place], [address] , [facility] 4 21:03:02 Acute upper respiratory infection Completed 202108/26/2021 Problem Code: J06.9; Problem Code Type: ICD-10; Not Available [facility] 3 05:53:59 Pain in right foot Completed 202207/30/2022 Problem Code: M79.671; Problem Code Type: ICD-10; Not Available [facility] 3 05:54:00 Breast composition Completed 201601/28/2023 Not Available [facility] 3 05:54:00 Changes in skin texture Completed 202207/30/2022 Problem Code: R23.4; Problem Code Type: ICD-10; Not Available [facility] 3 05:54:01 Spasm Completed 201603/23/2017 Problem Code: R25.2; Problem Code Type: ICD-10; EVIE shaw, [facility] 4 10:33:28 Hypertensive disorder Completed 11/27/2014 - Comments only - Ana Wade MD - Well controlled, no change in medications Not Available [facility] 3 05:54:03 Arthralgia of the ankle and/or foot Completed 201501/30/2016 Problem Code: M25.571; Problem Code Type: ICD-10; Not Available [facility] 3 05:54:03 Dyspnea Completed 201903/19/2020 Problem Code: R06.02; Problem Code Type: ICD-10; Danica shaw [facility] 4 14:39:47 Trigger finger of right hand Completed 201803/19/2020 Problem Code: M65.341; Problem Code Type: ICD-10; Not Available [facility] 3 05:54:06 Cough Completed 202108/12/2021 Problem Code: R05.1; Problem Code Type: ICD-10; Not Available [facility] 3 05:54:06 At risk - finding Completed 201811/11/2018 Problem Code: Z91.89; Problem Code Type: ICD-10; Not Available [facility] 3 05:54:06 Cough Completed 201706/15/2017 Problem Code: R05; Problem Code Type: ICD-10; Not Available [facility] 3 05:54:07 Preoperative cardiovascula r examination Completed 202112/18/2021 Problem Code: Z01.810; Problem Code Type: ICD-10; Not Available [facility] 3 05:54:08 Arterial bruit Completed 202109/11/2021 Not Available [facility] 3 05:54:08 Gastroesophag eal reflux disease Completed Not Available [facility] 3 05:54:09 Imaging of musculoskelet al system abnormal Completed 201603/23/2017 Problem Code: R93.7; Problem Code Type: ICD-10; Not Available [facility] 3 05:54:10 Blood glucose outside reference range Completed 201503/20/2016 Problem Code: R73.09; Problem Code Type: ICD-10; Not Available [facility] 3 05:54:10 Abdominal aortic aneurysm Completed 195912/04/2014 Not Available [facility] 3 05:54:11 Lung field abnormal Completed 202109/11/2021 Problem Code: R91.8; Problem Code Type: ICD-10; Not Available [facility] 3 05:54:11 Ingrowing nail Completed 201503/23/2017 Problem Code: L60.0; Problem Code Type: ICD-10; Not Available [facility] 3 05:54:11 Hypokalemia Completed 201504/17/2016 Problem Code: E87.6; Problem Code Type: ICD-10; Not Available [facility] 3 05:54:12 Spasm Completed 202201/23/2023 Problem Code: M62.838; Problem Code Type: ICD-10; EVIE shaw, [facility]. 4 10:33:28 Aneurysm of ascending aorta Active [address], [facility] [address] , [facility] 4 19:24:51 Bicuspid aortic valve Active 2023 severe by ECHO 07/[address], [facility] [address] , [facility]. 4 19:33:10 Osteopenia Active 2023 EVIE shaw [facility]. 4 10:28:13 Venous stasis Active 2023 EVIE shaw [facility]. 4 10:29:14 Chronic kidney disease Active 2017 Stage 3bA1v eGFR 42-[address], [place], [address] , [facility]. 4 20:49:29 Dyspnea on exertion Active 2018 Danica shaw, [facility]. 4 14:39:44 Hiatal hernia Completed 202108/11/2023 lap repair MD [address], [place], [address] , [facility] 4 20:51:15 Edema of lower extremity Active [address], [facility] [address] [place] [address] 4 20:55:49 Atrial fibrillation Active 2016 s/p pulmonoary vein isolation 05/2018, chronic anticoagulati on with Xarelto MD [address], [place], [address] [place] [address] , [facility] 4 09:14:08 Obesity Active [address], [place] [address] , [facility] 4 09:26:22 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 MD [address], [facility] [address] , [facility] 4 09:13:49 Swelling of bilateral lower limbs Active [address], [address] 4 14:35:13 Problem Notes None recorded. Medical Equipment None Reported. Allergies Allergen ID Allergen Name Allergen Category Reaction Reaction Severity Criticality Documentation Date Start Date Code Code System Note Provider Name and Address Organization Details Recorded Time 55841 amlodipin e medicatio n swelling severe high 11/18/2023 89133 RxNorm Shaneka Herrera MA [facility], [facility] 4 13:47:28 Medications Name Sig Start Date Stop Date Status Note LastModified by Organization Details LastModified Time furosemid e 40 mg tablet Take 1 tablet every day by oral route, for swelling in legs. active Not Available Not Available No t Available atorvasta tin 40 mg tablet Take 1 tablet by mouth every night active Not Available Not Available No t Available doxycycli ne monohydra te 25 mg/5 mL oral suspensio n Take 4 ml twice a day 03/17 completed Not Available Not Available Not Available anastrozo le 1 mg tablet .qd 08/11 completed Not Available Not Available Not Available acetamino phen 325 mg tablet Take 2 tablets every 6 hours by oral route as needed. active Not Available Not Available No t Available carvedilo l 6.25 mg tablet 1 tablet by mouth twice a day Take 1 tablet by mouth twice daily active Not Available Not Available No t Available prednison e 10 mg tablet take as directed , 40 mg for 5, 30 mg for 5, 20 mg for 5, 10 mg for 5 01/17 completed Not Available Not Available Not Available gabapenti n 600 mg tablet Take 1 tab by mouth three times daily 05/28 completed Not Available Not Available Not Available Vitamin C 500 mg tablet Take 1 tablet every day by oral route. active Not Available Not Available No t Available felodipin e ER 2.5 mg tablet,ex tended release 24 hr 1 tab daily 05/07 completed Not Available Not Available Not Available azithromy xena 250 mg tablet 1kit daily 03/28 completed Not Available Not Available Not Available metoprolo l succinate ER 50 mg tablet,ex tended release 24 hr Take 1 tab by mouth daily 06/02 [facility] Not [facility] Not Available Not Available atenolol 100 mg tablet Take 1 by mouth daily 2013 active Not Available Not Available Not Avai lable hydrocodo ne 5 mg-acetam inophen 325 mg tablet Take 1 tablet by mouth every six hours as needed for pain Do not take together with tramadol 12/18 completed Not Available Not Available Not Available Keflex 500 mg capsule Take 1 tab by mouth three times daily 12/24 completed Not Available Not Available Not Available Synthroid 125 mcg tablet Take 1 tab by mouth daily 2013 active Not Available Not Available Not Avai lable prednison e 20 mg tablet Take two tabs PO x 5 days,1 for 5 days, 1/2 for 5 days 05/14 completed Not Available Not Available Not Available metoprolo l succinate ER 100 mg tablet,ex tended release 24 hr Take 1 tab by mouth daily 2017 active per cardiolo gy Not Available Not Available Not Available amlodipin e 2.5 mg tablet Take 1 tab by mouth daily 05/24 completed Not Available Not Available Not Available amlodipin e 5 mg tablet Take 1 tab by mouth daily 2016 active per cardiolo gy Not Available Not Available Not Available allopurin ol 100 mg tablet Take 2 tablets every day by oral route, for gout. active Not Available Not Available No t Available aspirin 81 mg tablet,de layed release Take 1 tablet every day by oral route. 2023 active Not Available Not Available Not Avai lable tramadol 50 mg tablet TAKE ONE TABLET BY MOUTH EVERY 12 HOURS NEEDED active Not Available Not Available No t Available spironola ctone 25 mg tablet Take 1 tablet every day by oral route, for blood pressure /swellin g in legs. 11/17 completed Not Available Not Available Not Available levothyro xine 100 mcg tablet Take 1 tablet every day by oral route, for thyroid. active Not Available Not Available No t Available Augmentin 125 mg-31.25 mg/5 mL oral suspensio n augmenti n 400-57/5 ml 10 ml PO bid x 7d, #140 03/17 completed Not Available Not Available Not Available Tessalon Perles 100 mg capsule Take 1 capsule by mouth three times a day as needed for cough 08/13 completed Not Available Not Available Not Available methocarb jareth 750 mg tablet 1-2 tab PO TID as needed for spasms 10/15 completed [facility] Not Available Not Available Not Available Lamisil 250 mg tablet 1 TAB daily 04/17 completed Not Available Not Available Not Available amitripty line 10 mg tablet 1-2 tabs at bedtime 04/17 completed Not Available Not Available Not Available amlodipin e 10 mg tablet Take 1 tab by mouth daily 2016 active Not Available Not Available Not Avai lable Lasix 20 mg tablet Take 1 tab by mouth daily (GENERIC ) 2015 active Not Available Not Available Not Avai lable oseltamiv ir 75 mg capsule take 1 tablet BID 06/07 completed Not Available Not Available Not Available ferrous sulfate 325 mg (65 mg iron) tablet Take 1 tablet by mouth daily with vitamin c 2023 active Not Available Not Available Not Avai lable lisinopri l 10 mg tablet Take 1 tablet by mouth once a day 2023 active Not Available Not Available Not Avai lable Calcium-6 00 600 mg (as calcium carbonate 1,500 mg) tablet Take 1 tablet by mouth once a day 2017 active Not Available Not Available Not Avai lable gabapenti n 300 mg capsule Take 1 capsule by mouth twice a day active Not Available Not Available No t Available omeprazol e 20 mg capsule,d elayed release Take 1 capsule by mouth every day 06/16 completed Not Available Not Available Not Available cephalexi n 500 mg tablet Take 1 tab by mouth three times daily for 10 days 03/30 completed Not Available Not Available Not Available cyanocoba ema (vit B-12) 1,000 mcg sublingua l tablet Place 1 tablet every day by sublingu al route. active Not Available Not Available No t Available lisinopri l 5 mg tablet Take 1 tablet by mouth once a day 04/10 completed Not Available Not Available Not Available hydrochlo rothiazid e 25 mg tablet 1 tab daily 03/20 completed Not Available Not Available Not Available Synthroid 112 mcg tablet Take 1 tab by mouth daily 2013 [facility] Not Available Not Available Not Available gabapenti n 100 mg capsule Take 1 cap by mouth three times daily 2015 active Not Available Not Available Not Avai lable metoprolo l succinate ER 25 mg tablet,ex tended release 24 hr Take 1 tab by mouth daily 2017 active [facility] Not Available Not Available Not Available warfarin 1 mg tablet Take as directed 2017 active Not Available Not Available Not Avai lable ibuprofen 600 mg tablet Take 1 tab by mouth three times daily as needed for pain 06/02 completed ANIKET Branch MA Not Available Not Available Not Available colchicin e 0.6 mg tablet Take 1 tablet twice a day by oral route for 14 days. 11/05 completed [facility] Not Available Not Available Not Available lisinopri l 40 mg tablet Take 1 tablet by mouth every day 2019 active Not Available Not Available Not Avai lable ondansetr on 4 mg disintegr ating tablet Take 4mg x1 and then 2mg after each stool q6 prn for 2 days 01/23 completed Not Available Not Available Not Available colestipo l 1 gram tablet Take 1 tablet twice a day by oral route. active Not Available Not Available No t Available felodipin e ER 5 mg tablet,ex tended release 1 TAB daily 10/14 completed Not Available Not Available Not Available naproxen 500 mg tablet 1 tab twice daily prn pain 01/17 completed Not Available Not Available Not Available Flexeril 10 mg tablet 1 TAB three times daily 08/07 completed Not Available Not Available Not Available Vitamin B-12 1,000 mcg tablet take 1 tablet PO QD 2017 active Not Available Not Available Not Avai lable magnesium 250 mg (as magnesium oxide) tablet Take 1 tablet twice a day by oral route. active 150 mg elementa l Not Available Not Available Not Available Synthroid 137 mcg tablet 1 tab daily 2013 active Not Available Not Available Not Avai lable naproxen 220 mg tablet 2 tabs twice daily 04/17 completed Not Available Not Available Not Available Compressi on Stockings Dx: R60.0 compress ion 20-30 06/15 completed Not Available Not Available Not Available omeprazol e 1TAB daily 05/30 completed Not Available Not Available Not Available lisinopri l 1 TAB daily 05/30 completed Not Available Not Available Not Available Synthroid 1TAB daily 05/30 completed Not Available Not Available Not Available cholecalc iferol (vitamin D3) 25 mcg (1,000 unit) tablet 2 once a day 2017 active Not Available Not Available Not Avai lable Questran Light 4 gram oral powder Take 4 gram by mouth twice a day take other medicati ons at least 1 hour before and at least 4 hours after 01/23 completed Called to pharmacy Not Available Not Available Not Available omeprazol e 20 mg tablet,de layed release Take 1 by mouth daily 2013 active Not Available Not Available Not Avai lable Voltaren 1 % topical gel gel daily 04/17 completed Not Available Not Available Not Available Xarelto 15 mg tablet Take 1 tablet by mouth every evening with supper 06/16 completed Not Available Not Available Not Available Xarelto 20 mg tablet Take 1 tablet by mouth once a day 11/26 completed note said to hold until TTE c ompleted , then said it was to STOP Not Available Not Available Not Available OneTouch Verio test strips use one strip daily E119 02/22 completed Not Available Not Available Not Available magnesium 400 mg (as magnesium oxide) capsule Take 1 tab by mouth twice daily 12/17 completed Not Available Not Available Not Available OneTouch Delica Lancets 30 gauge Test once a day DX: E11.9 02/22 completed Not Available Not Available Not Available Eliquis 5 mg tablet Take 1 tab by mouth twice a day 06/02 completed Not Available Not Available Not Available Victoza 3-Anant 0.6 mg/0.1 mL (18 mg/3 mL) subcutane ous pen injector start with 0.6 mg daily for one month, then increase to 1.2 mg daily. 10/08 completed PA did not go through, trying Ozempic per provider . Not Available Not Available Not Available OneTouch Verio Flex Meter 02/22 completed Tiki gave patient device. Not Available Not Available Not Available BD Tracie 2nd Gen Pen Needle 32 gauge x /32 USE 1 NEEDLE ONCE DAILY WITH VICTOZA 11/17 completed Not Available Not Available Not Available Ozempic 0.25 mg or 0.5 mg (2 mg/3 mL) subcutane ous pen injector 10/13 completed Not Available Not Available Not Available Vitals Date Recorded Body height Body mass index (BMI) Body weight Body temperature Oxygen saturation Oxygen saturation in Arterial blood by Pulse oximetry Heart rate Respiratory rate Systolic blood pressure Diastolic blood pressure Provider Name and Address Organization Details Last Updated DateTime 164.34 cm 31.2 kg/m2 29543.1 8 g 99.8 [degF] 97 % 97 % 91 /min 17 /min 131 mm[Hg] 77 mm[Hg] Shaneka Herrera MA [facility] 13:46:32 Social History Question Answer Notes LastModified by Organizat ion Details LastModified Time Tobacco Smoking Status Never Smoker FELECIA BARROS, [facility] 08/12/2023 07:44:55 Date Of Most Recent HSA 08/12/2023 Information not available 08/12/2023 Would You Say That, In General, Your Health Is Good Information not available 08/12/2023 How Often Does Anyone, Including Family, Physically Hurt You? Never Information not available 08/12/2023 How Often Does Anyone, Including Family, Insult Or Talk Down To You? Never Information no t available 08/12/2023 How Often Does Anyone, Including Family, Threaten You With Harm? Never Information not available 08/12/2023 How Often Does Anyone, Including Family, Scream Or Curse At You? Rarely Information not available 08/12/2023 Within The Past 12 Months, You Worried That Your Food Would Run Out Before You Got Money To Buy More. Never True Information n ot available 08/12/2023 Within The Past 12 Months, The Food You Bought Just Didn't Last And You Didn't Have Money To Get More. Sometimes True Information n ot available 08/12/2023 How Hard Is It For You To Pay For The Very Basics Like Food, Housing, Medical Care, And Heating? Would You Say It Is: Somewhat Hard Information not available 08/12/2023 In The Past 12 Months, Has Lack Of Reliable Transportation Kept You From Medical Appointments, Meetings, Work Or From Getting Things Needed For Daily Living? No Information not available 08/12/2023 What Is Your Housing Situation Today? I Have Housing. Information not available 08/12/2023 How Often In The Past Year Have You Used Marijuana (including Smoking, Vaping, Dabbing, Or Edibles)? Never Information not available 08/12/2023 How Often In The Past Year Have You Used Prescription Medications That Were Not Prescribed To You? Never Information n ot available 08/12/2023 How Often In The Past Year Have You Taken Your Own Prescription Medication More Than The Way It Was Prescribed Or For Different Reasons Than Its Intended Purpose? Never Information no t available 08/12/2023 How Often In The Past Year Have You Used Other Drugs (for Example, Heroin, Cocaine, Meth, Salvia, Inhalants)? Never Information not available 08/12/2023 Have You Ever Used IV Drugs? No Information not available 08/12/2023 What Matters Most To You? Independent Living, Maintaining Health Information not available 08/12/2023 During The Past Four Weeks Has Your Physical And Emotional Health Limited Your Social Activities With Family And Friends, Neighbors, Or Groups? Slightly Information not available 08/12/2023 During The Past Four Weeks, Was Someone Available To Help You If You Needed And Wanted Help? (For Example, If You Hollis Very Nervous, Lonely, Or Blue; Got Sick And Had To Stay In Bed; Needed Someone To Talk To; Needed Help With Daily Chores; Or Needed Help Just Taking Care Of Yourself.) Yes- Some Information n ot available 08/12/2023 During The Past Four Weeks, What Was The Hardest Physical Activity You Could Do For At Least 2 Minutes? Heavy Information not available 08/12/2023 Can You Get To Places Out Of Walking Distance Without Help? (For Example, Can You Travel Alone On Buses Or Taxis, Or Drive Your Own Car?) No Information not available 08/12/2023 Can You Go Shopping For Groceries Or Clothes Without Someone? s Help? No Information not available 08/12/2023 Can You Prepare Your Own Meals? Yes Information not available 08/12/2023 Can You Do Your Housework Without Help? Yes Information not available 08/12/2023 Because Of Any Health Problems, Do You Need The Help Of Another Person With Your Personal Care Needs Such As Eating, Bathing, Dressing, Or Getting Around The House? No Information not available 08/12/2023 Can You Handle Your Own Money Without Help? Yes Information not available 08/12/2023 Are You Having Difficulties Driving Your Car? Yes-often Information no t available 08/12/2023 Do You Always Fasten Your Seat Belt When You Are In A Car? Yes- Usually Information not available 08/12/2023 How Often During The Past Four Weeks Have You Been Bothered By Any Of The Following Problems? Falling Or Dizzy When Standing Up? Seldom Information not available 08/12/2023 Sexual Problems? Never Informat ion not available 08/12/2023 Trouble Eating Well? Never Information not available 08/12/2023 Teeth Or Denture Problems? Never Information not available 08/12/2023 Problems Using The Telephone? Never Information not available 08/12/2023 Tiredness Or Fatigue? Often Information not available 08/12/2023 Have You Had 2 Or More Falls Or Sustained An Injury With A Fall In The Last Year? No Information no t available 08/12/2023 Do You Have Difficulty With Walking Or Balance? Yes Information not available 08/12/2023 Do You Currently Use A Hearing Device? No Information not available 08/12/2023 Do You Currently Have Any Trouble With Your Vision? No Information no t available 08/12/2023 Do You Exercise For About 20 Minutes Three Or More Days A Week? Yes- Some Of The Time Information not available 08/12/2023 Are There Any Safety Concerns In Your Home (see Attached CDC Pamphlet)? No Information not available 08/12/2023 How Often Do You Have Trouble Taking Medicines The Way You Have Been Told To Take Them? I Always Take Them As Prescribed Information not available 08/12/2023 How Confident Are You That You Can Control And Manage Most Of Your Health Problems? Somewhat Confident Information not available 08/12/2023 Do You Currently Have Any Difficulty With Your Hearing? Yes Information not available 08/12/2023 Date Of Most Recent SBINS 08/12/2023 Information not available 08/12/2023 What Was The Date Of Your Most Recent Tobacco Screening? 11/18/2023 [email or web address] Information not available 11/18/2023 Has Tobacco Cessation Counseling Been Provided? Yes [email or web address] Information not available 11/18/2023 On What Date Was Tobacco Cessation Counseling Provided? 11/18/2023 [email or web address] Information not available 11/18/2023 Do You Or Have You Ever Used Any Other Forms Of Tobacco Or Nicotine? No Information not available 08/12/2023 Sex: Female Functional Status None recorded. Mental Status None recorded. Family History Relationship Description Onset Age of this Age Resolved Age Notes Father Family history of stroke Mother Family history of he art failure Notes:*Problem: Mother: Dece ased 66 CAD Father: 61 CVA Sisters: age 58 of PE, 2 others: Brothers: 1 secondary drug overdose age 30 Family History of: Coronary heart disease: Yes father Breast cancer: No Colorectal cancer: Yes maternal grandfather relatively young age. Mental illness: No *Procedure Description: Family History of Headaches*Relative: Mother Medical History No medical history recorded. Gynecological HistoryNo gynecological history recorded. Obstetrics History GPAL:G 0 P 0 0 0 0 Immunizations Vaccine Type Date Status Provider Name and Address Organization Details Recorded Time Pneumococcal conjugate PCV20, polysaccharide BUM279 conjugate, adjuvant, PF 08/12/2023 completed MD Young [address], [place], [address], [facility] 08/12/2023 11:52:18 COVID-19, mRNA, LNP-S, PF, vanda-sucrose, 30 mcg/0.3 mL 08/12/2023 completed MD Young [address], [place], [address], [facility] 08/12/2023 11:52:18 Tdap 11/05/2010 completed Not Available [facility] 06:18:37 Tdap 02/18/2021 completed Not Available [facility] 06:18:37 zoster live 07/28/2014 completed Not Available [facility] 03/13/2023 06:18:37 Influenza, high-dose, trivalent, PF 02/22/2018 completed Not Available [facility] 03/13/2023 06:18:38 Influenza, split virus, trivalent, preservative 09/03/2015 completed Not Available [facility] 03/13/2023 06:18:38 Pneumococcal Conjugate, unspecified formulation 07/28/2014 completed Not Available [facility] 03/13/2023 06:18:38 Influenza, split virus, quadrivalent, preservative 02/03/2017 completed Not Available [facility] 03/13/2023 06:18:38 Influenza, high-dose, quadrivalent, PF 02/06/2022 completed Not Available [facility] 03/13/2023 06:18:38 Influenza, high-dose, quadrivalent, PF 02/18/2021 completed Not Available [facility] 03/13/2023 06:18:38 Influenza, high-dose, quadrivalent, PF 02/24/2020 completed Not Available [facility] 03/13/2023 06:18:38 COVID-19, mRNA, LNP-S, PF, 100 mcg/0.5mL dose or 50 mcg/0.25mL dose 06/28/2020 completed Not Available [facility] 03/13/2023 06:18:38 COVID-19, mRNA, LNP-S, PF, 100 mcg/0.5mL dose or 50 mcg/0.25mL dose 07/27/2020 completed Not Available [facility] 03/13/2023 06:18:39 COVID-19, mRNA, LNP-S, PF, 100 mcg/0.5mL dose or 50 mcg/0.25mL dose 03/19/2021 completed Not Available [facility] 03/13/2023 06:18:39 COVID-19, mRNA, LNP-S, bivalent, PF, 30 mcg/0.3 mL dose 02/06/2022 completed Not Available [facility] 03/13/20 06:18:39 pneumococcal polysaccharide PPV23 11/05/2010 completed Not Available [facility] 2022 06:18:39 influenza, unspecified formulation 12/30/2015 completed Not Available [facility] 03/13/2023 06:18:39 influenza, unspecified formulation 04/17/2014 completed Not Available [facility] 03/13/2023 06:18:39 Influenza, high-dose, quadrivalent, PF 01/23/2023 completed Not Available [facility] 05/15/2023 05:33:16 Past Encounters Encounter ID Performer Location Encounter Start Date Encounter Closed Date Diagnosis/Indication Diagnosis SNOMED-CT Code [id number] FAY YORK PA-C [address] [place] [address] 11/18/2023 13:18:09 11/18/2023 14:34:24 Swelling of bilateral lower limbs [id number] Health Concerns Section Related Observation LastModified by Organization Detai ls LastModified Time None Recorded Concern Status LastModified by Organization Details LastModified Time None Recorded Payers Encounter Date Sequence Insurance Name Policy Number Policy Palacio Covered Member ID Palacio Member ID Guarantor Name 11/18/2023 1 MEDICARE [place]: [facility] Digna Olson [id number] Digna Lemus Whitney 11/18/2023 2 [place] [facility] Digna Olson [id number] Digna Lemus Whitney Notes Date Note Type Note Provider Name and Address Organization Details Recorded Time 11/18/2023 text/html HPI Notes: Alma Delia is a 78-year-old female who presents with notable swelling of bilateral lower extremities a little bit worse on the left than right. Of note she was discharged from [facility] on October 27 after being admitted on October 19 for pacemaker placement and aortic valve placement. 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 She was given a pacemaker because of constant A-fib. There was a complication with the pacer and a wire pierced the muscle causing a small bleed in the 2 placed new pacer. She did have an echo done 3 days after discharge and was told it was good. She has now noticed that she has had progressive swelling from her knees distally on both extremities worse on the left than right. Has been feeling more short of breath than usual with lying down, sitting and worse with exertion. She has not had wheeze. She has not developed chest pain at any point. She did call her cardiology team and they recommended that she needed to be evaluated. She attempted to get in with primary care but could not and thus she came here. She was previously on blood thinners because of the A-fib but has been off of them since before surgery and has not been placed back on them. She was not placed on blood thinner prophylactic while in the hospital because of the procedures she states she had very limited movement while inpatient. She does take Lasix 40 mg every day and has for years. No potassium replacements. Was previously on spironolactone but was taken off of this because of her kidney function. She is trying to transfer cardiology care locally but is still being managed at [facility] with her next appointment scheduled on December 02. FAY YORK PA-C [address], [place], [address], [facility]. 11/18/2023 14:39:07 OBGyn Episode No OBEpisode recorded.
--- OUTSIDE RECORDS SUMMARY | 2023-11-18 15:07 | XMS_ITS | Encounter Summary ---
[place] [address] Care Team Providers Care Interior Assemblies Installer Name Role Phone Ana Her MD Primary Care Provider [phone] Reason for Visit * Auth/Cert Specialty Diagnoses / Procedures Referred By Christiano hackett Referred To Contact Diagnoses S/P repair of paraesophageal hernia Post-Op monitoring Procedures PRO LAPARSCOPY REPAIR PARAESOPHAGEAL HERNIA INCL FUNDOPLASTY W/O MESH LAPAROSCOPIC PARAESOPHAGEAL HERNIA REPAIR W/FUNDOPLASTY, W/O MESH (WRVU 26.6) MODIFIER TOUPET FUNDOPLASTY Shania Will MD [facility] [place] [address] [facility] Referral ID Status Reason Start Date Expiration Date Visits Re quested Visits Authorized [id number] 1 1 Encounter Details Date Type Department Care Team (Latest Contact Info) Description 03/05/2022 11:55 AM EDT - 03/07/2022 10:00 AM EDT Hospital Encounter [place] [id number] Shania Will MD [facility] [place] [address] Discharge Disposition: Home Social History Tobacco Use Types Packs/Day Years Used Date Smoking Tobacco: Never Smokeless Tobacco: Never Alcohol Use Standard Drinks/Week Comments Yes 2 (1 standard drink = 0.6 oz pur e alcohol) social only Sex and Gender Information Value Date Recorded Sex Assigned at Not on file Gender Identity Not on file Sexual Orientation Not on file documented as of this encounter Last Filed Vital Signs Vital Sign Reading Time Taken Comments Blood Pressure 116/67 03/07/2022 7:40 AM EDT Pulse 90 03/05/2022 7:30 PM EDT Temperature 36.7 ??C (98.1 ??F) 03/07/2022 7:40 AM ED T Respiratory Rate 16 03/07/2022 7:40 AM EDT Oxygen Saturation 95% 03/07/2022 7:40 AM EDT Inhaled Oxygen Concentration - - Weight 87.6 kg (193 lb 1.6 oz) 03/05/2022 12:19 PM EDT Height 165.1 cm (5' 5) 03/05/2022 12:19 PM EDT Body Mass Index 32.13 03/05/2022 12:19 PM EDT documented in this encounter Discharge Summaries * Shena Harden MD - 03/07/2022 7:18 AM EDT Images from the original note were not included. General Surgery Discharge Summary Patient Name: Digna Olson Patient Age: 76 y.o. : 1945 Attending Physician: Shania Will MD Date of Admission: 03/05/2022 Date of Discharge: 03/07/2022 Reason for admission: Post operative care following: laparoscopic paraesophageal hernia repair withToupet fundoplication Primary Diagnosis: paraesophageal hernia, GERD Secondary Diagnosis: Patient Active Problem List Diagnosis Code ??? Neurogenic claudication due to lumbar spinal stenosis M48.062 ??? 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 Anemia D64.9 ??? Aortic valve stenosis I35.0 ??? Arthritis M19.90 ??? Bicuspid aortic valve Q23.1 ??? Dyspnea on exertion R06.09 ??? Edema R60.9 ??? Fatigue R53.83 ??? Gastroesophageal reflux disease K21.9 ??? Hypercholesterolemia E78.00 ??? Hypertensive disorder I10 ??? Hypothyroidism E03.9 ??? Iron deficiency anemia D50.9 ??? Leg cramps R25.2 ??? Overweight E66.3 ??? Atrial fibrillation with rapid ventricular response I48.91 ??? Sleep disorder G47.9 ??? Thoracic aortic aneurysm without rupture I71.20 ??? Urinary incontinence R32 ??? Vertigo R42 ??? Cardiomyopathy, nonischemic I42.8 ??? S/P repair of paraesophageal hernia Z98.890, Z87.19 ??? Paraesophageal hernia K44.9 Operations and Procedures: Procedure(s): LAPAROSCOPIC PARAESOPHAGEAL HERNIA REPAIR W/FUNDOPLASTY, W/O MESH (WRVU 26.6) MODIFIER TOUPET FUNDOPLASTY Surgeons: Surgeon(s) and Role: * Shania Will MD - Primary History of Present Illness: Digna Olson is a 76 y.o. female with h/o a fib (Xarelto), ascendingaortic aneurysm, RACHAEL, HTN, breast cancer s/p lumpectomy (2017), and symptomatic paraesophageal hernia with symptoms refractory to medical management. Symptoms include heartburn, regurgitation, globussensation, sour brash taste, and post-prandial chest discomfort. Workup significant for chest CT which demonstrated type III hiatal hernia with organoaxial rotation w/o obstruction. She presents for surgical repair of hernia and fundoplication. Hospital Course: Digna Olson is a 76 y.o. female who was admitted on 03/05/2022 postoperatively after a Laparoscopic Paraesophageal Hernia Repair with Toupet Fundoplication. Operative course was uneventful, please see operative note for further detail. Postoperative she received a post-Sly clear liquid diet as well as Tylenol, Toradol, Roxicodone, and IV Dilaudid for pain control. On POD#1 AM labs showed mild anemia with hgb 10.5 and creatinine of 1.32; am anticoagulation was held until recheck midday which showed stable hgb. Nephrotoxic medications (Toradol and Lovenox) were discontinued. She received an IV bolus and on midday recheck Cr was improving to 1.25. Per chart review, her creatinine levels in [id number] ranged from 0.87-1.50 indicative of possible undiagnosed CKD. On POD#1 her diet was advanced to post-Sly full liquids, which was tolerated well. She was changed to oral pain medications and IV analgesics were discontinued on POD#1. she did not have Mohan catheter and was voiding without difficulty for the duration of her admission. Prior to discharge on 03/07/22 or hos, patient's pain was well controlled with oral pain medications, patient was voiding without difficulty, and wounds were intact and healing appropriately. Her Cr improved to 0.9. Patient did not have a bowel movement prior to discharge but was passing flatus andtolerating a Post- Sly Full Liquid diet Full Liquid. Vitals were within normal limits and patientwas determined medically ready for discharge to home. Vital Signs Last value Range last 24hrs Temperature Temp: 36 ??C (96.8 ??F) Temp: [36 ??C (96.8 ??F)-36.8 ??C (98.2 ??F)] Heart Rate Heart Rate: 90 Heart Rate: -- Blood Pressure BP: 152/82 BP: (102-152)/(62-82) Respiratory Rate Resp: 16 Resp: [16] SpO2 SpO2: 96 % SpO2: [93 %-98 %] Pertinent Lab Data: Recent Labs 03/07/22 0508 03/06/22 1015 03/06/22 0429 WBC 6.6 6.4 4.9 HGB 10.7* 10.5* 10.5* HCT 31.7* 31.1* 31.0* PLATELET 110* 111* 104* Recent Labs 03/07/22 0508 03/06/22 1015 03/06/22 0429 NA 131* 134* 136 K 4.5 4.8 5.3* CL 100 101 103 CO2 22 23 23 BUN 22* 29* 31* CREATININE 0.93 1.25* 1.32* GLUCOSE 111 155 140 CALCIUM 9.2 8.9 9.0 MAGNESIUM 0.89 0.69 -- PHOS 2.7 3.3 -- Imaging: No results found. Physical Exam: BP 152/82 Pulse 90 Temp 36 ??C (96.8 ??F) (Temporal) Resp 16 Ht 165.1 cm (5' 5) Wt 87.6 kg (193 lb 1.6 oz) SpO2 96% BMI 32.13 kg/m?? General: AOx3, pleasant, conversant, no acute distress HEENT: normocephalic, atraumatic, PERRLA, anicteric sclerae CVS: RRR on monitor Pulm: breathing comfortably on room air Abd: soft, nontender, non-distended, incisions clean/dry/intact : no mohan Skin: warm, dry Ext: well perfused, no jaundice or cyanosis, no edema Neuro: CN 2-12 grossly intact, nonfocal, moving all four extremities spontaneously Condition at discharge: Stable Mental Status: awake and alert, oriented x 3 Medications: Your Medications New Medications Dose Details ondansetron ODT 4 mg Tbdl Commonly known as: Zofran-ODT Take 1 tablet by mouth every 8 hours as needed for Nausea. 4 mg Quantity: 20 tablet Refills: 0 oxyCODONE 5 mg Tab Commonly known as: Roxicodone Take 1 tablet by mouth every 6 hours as needed for Pain. 5 mg Quantity: 12 tablet Refills: 0 polyethylene glycoL 17 gram/dose Powd Commonly known as: Miralax Take 17 g by mouth daily as needed (for constipation). 17 g Refills: 0 senna 8.6 mg Tab Commonly known as: Senokot Take 1 tablet by mouth 2 times daily as needed for Constipation. 1 tablet Refills: 0 Continued medications, unchanged Dose Details acetaminophen 500 mg Tab Commonly known as: Tylenol TAKE TWO TABLETS BY MOUTH EVERY 8 HOURS NEEDED FOR PAIN Refills: 0 allopurinoL 100 mg Tab Commonly known as: Zyloprim Take 200 mg by mouth Daily. 200 mg Refills: 0 anastrozole 1 mg Tab Commonly known as: Arimidex Take 1 tablet by mouth daily. 1 mg Quantity: 90 tablet Refills: 3 ascorbic acid (Vitamin C) 500 mg Tab Commonly known as: Vitamin C Take 500 mg by mouth Daily. 500 mg Refills: 0 atorvastatin 40 mg Tab Commonly known as: Lipitor Take 40 mg by mouth daily. 40 mg Refills: 0 calcium carbonate 500 mg calcium (1,250 mg) Cap Take 1,250 mg by mouth Daily. 1,250 mg Refills: 0 carvediloL 6.25 mg Tab Commonly known as: Coreg Take 6.25 mg by mouth 2 times daily (with meals). 6.25 mg Refills: 0 cholecalciferol (Vitamin D3) 25 mcg (1,000 unit) Cap Take 1,000 each by mouth 2 times daily. 1,000 each Refills: 0 cyanocobalamin (Vitamin B-12) 1,000 mcg Tab Commonly known as: Vitamin B-12 Take 1,000 mcg by mouth. 1,000 mcg Refills: 0 ferrous sulfate EC 325 mg (65 mg iron) Tbec Take 325 mg by mouth daily. 325 mg Refills: 0 furosemide 40 mg Tab Commonly known as: Lasix Take 40 mg by mouth daily. 40 mg Refills: 0 gabapentin 300 mg Cap Commonly known as: Neurontin Take 300 mg by mouth 2 times daily. 300 mg Refills: 0 levothyroxine 100 mcg Tab Commonly known as: Synthroid Refills: 0 lisinopriL 10 mg Tab Commonly known as: Zestril Take 10 mg by mouth daily. 10 mg Refills: 0 magnesium 250 mg Tab Take by mouth 2 times daily. Refills: 0 spironolactone 25 mg Tab Commonly known as: Aldactone Refills: 0 traMADoL 50 mg Tab Commonly known as: Ultram TAKE 1 TABLET BY MOUTH EVERY 12 HOURS NEEDED Refills: 0 Xarelto 15 mg Tab Take 15 mg by mouth daily. Generic drug: rivaroxaban 15 mg Refills: 0 STOPPED Medications omeprazole 20 mg Cpdr Commonly known as: PriLOSEC Disposition: Home Allergies: No Known Allergies Outpatient Services/Studies: No discharge procedures on file. Scheduled Appointments: Future Appointments and Orders Future Appointments and Orders Future Appointments Provider Department Dept Phone 04/03/2022 12:00 PM Shania Will MD [place] [facility] [place]: [facility] [phone] Instructions Given to Patient at Discharge: Patient Instructions Discharge Instructions - Hiatal Hernia Repair with Toupet Fundoplication RESTART XARELTO on day of discharge 03/07/2022 Wound Care: ??? You have steri-strips and Band-Aids over your incisions. You may remove Band-Aids in 48 hours and then shower. o Leave the steri-strips (little pieces of skin tape) across the incision and allow them to peel off on their own. If they are still there in 10 days, you may remove them. ??? When you shower, let soap and water run over incisions without scrubbing. Pat dry gently. ??? Some bruising around your incisions is normal. ??? Using ice packs will help minimize this swelling. ??? No swimming or soaking in water (ie. hot tubs or baths) for two weeks. ??? Your stitches will dissolve and do not need to be removed. Call Doctor for: ??? Worsening redness or drainage from incision(s) lasting longer than 5 days after your surgery ??? Any foul-smelling drainage from the incision ??? Pain not controlled by pain medications ??? Persistent nausea or vomiting ??? Any fevers greater than 101.3 F For questions or concerns during business hours please call the Surgery Clinic at [phone] before 5 PM on weekdays. For questions after hours and on weekends please call the hospital gantry crane operator at [phone] and ask for the General Surgery resident bottom ironer. They may not be familiar with your case so be prepared to identify yourself and the procedure you had done. Activity Level: Increase your activity slowly. You may tire easily, so frequent rest periods may be necessary. Do not lift more than 10 pounds for 4 weeks. Walk three times a day. Use common sense. Don't exhaust yourself. Driving: Do not drive while taking narcotic pain medications. If you are no longer taking pain medication, it should be safe to drive when it no longer hurts getting in and out of the vehicle, and when you can quickly move your leg from the gas to the brake pedal without it causing pain. Diet: You should follow a post Sly diet, as instructed by the resident care coordinator in the hospital for a period of approximately 3 weeks. The main purpose of this diet is to have you consume foods that will slide easily down into your stomach. Most foods when well chewed should pass through the esophagus and into your stomach. However, patients do not always chew foods well enough. Slow, thorough chewing isrecommended. Moistening foods with sauce, gravy, syrup or other liquids can be helpful. You should consume only very soft, small particle foods. You should not eat bread or drink carbonated beverages. You should start with more bland foods and if these are tolerated you may increase the amount of spice in your food. If you find there are foods that don't agree with you, try these sparingly until y ou can tolerate them. You need to remain in an upright position for 30-60 minutes after you eat. You may find that you need to eat smaller meals with frequent between meal snacks to get enough calories. Pills: Please do your best to crush or open all pills/capsules bigger than a Tylenol or ibuprofen tablet for 4 weeks. See below for any specific changes to your home medications. The template below is a general size guide, any pills or capsules that are significantly bigger should be crushed/opened. Changes to Your Home Medications: ??? Please discontinue the use of Prilosc (omeprazole) or any antacid medications until you are seen in the clinic for follow-up. This procedure should have helped with the heartburn symptoms, and ifthe medication is not stopped, we will not know if the surgery was successful. ??? The following medication CAN be crushed as needed based on the size template above: allopurinol, Lipitor, carvedilol, Lasix, Synthroid, lisinopril, spironolactone, Xarelto ??? The following medications CANNOT be crushed and must be taken whole: anastrazole ??? You may OPEN gabapentin capsules and sprinkle contents over pudding, yogurt, etc for 4 weeks. ??? DO NOT TAKE TRAMADOL WHILE TAKING NEW PRESCRIPTION FOR OXYCODONE. Pain Management: ??? Use heat or ice packs to your incisions. ??? Take Tylenol 1000mg (two extra strength tablets) up to every 6 hours. Do NOT take more than 4000mg every day. ??? DO NOT TAKE TRAMADOL WHILE TAKING NEW PRESCRIPTION FOR OXYCODONE. ??? For pain not covered by Tylenol, take the prescription narcotic medicine: 5 mg every 4-6 hours ??? Take the medication exactly as it is prescribed and make sure to read all instructions that come with the medication. o Over the next couple of days you should be requiring less of this medication to control your pain, so that eventually you will not need any at all. You do not have to take all of the medication that was prescribed, if you have leftover pain medication this can be disposed of at a pharmacy or at your next follow up visit in the surgery clinic. o Taking more than the prescribed amount of medication or using with alcohol or other drugs can cause you to stop breathing resulting in coma, brain damage, or . o Opioids can slow reaction time, cause drowsiness, or cloud judgement. Do not drive for 8 hours after any dose of opioid pain medication if one was prescribed for you. o Using this drug may cause addiction. While addiction is more common in people with a personal or family history of addiction, it can occur in anyone. o Opioids are at risk of being diverted by anyone with access to your home. Opioids should be stored in a safe and secure place, such as a locked cabinet or safe. o Unused opioids should be disposed of appropriately. They may be returned to a take-back location,or mixed with a small amount of water and poured over an undesirable waste such as used coffee grounds or cat litter. o Please note that most pain medications can cause constipation. You may use a stool softener such as Miralax to prevent this. Pain Tapering Instructions: ??? Your pain should slowly and steadily diminish as you heal. If your pain level at the surgery site increases, you should call us. ??? It is normal for increased pain if you are overly active or you decrease your pain medication, but a significant and unexplained increase in pain should be discussed with your surgeon. ??? Pain medication is usually necessary for only 4-5 days postoperatively. It is important to havea plan for tapering off of pain medication. See below for tapering schedule sample. o As your pain improves, start to wean oxycodone first by taking fewer tablets and taking it less often. o Continue your Tylenol as you wean the narcotic. o Wean the Tylenol last. Other Means for Pain Relief: ?? Learn deep breathing exercises or meditation to help you relax. ?? Reduce stress. ?? Your body produces natural endorphins from exercise which can help reduce pain. Even walking is considered exercise. Talk with your provider/surgical team about what exercises are appropriate for you to perform. ?? You may use a heating pad or apply ice to the painful area unless specifically discouraged by the surgical team. ?? Find ways to distract yourself from the pain. Follow-up: PLEASE arrange follow up with your PCP within 1 week of discharge to discuss your renal function. Please call the clinic at [phone] to confirm or reschedule. Future Appointments Date Time Provider Department Center 04/03/2022 12:00 PM Shania Will MD [facility] General Instructions None Future Appointments and Orders Future Appointments and Orders Future Appointments Provider Department Dept Phone 04/03/2022 12:00 PM Shania Will MD General Surgery at [facility] [place] at: [facility] Signed: Shena Harden MD 03/07/22 7:18 AM [facility] [place] [address] [place] Physician: MD Geovany David DR [facility] [id number] documented in this encounter Discharge Instructions * Patient Instructions* Shena Harden MD - 03/06/2022 9:56 AM EDT Images from the original note were not included. Discharge Instructions - Hiatal Hernia Repair with Toupet Fundoplication RESTART XARELTO on day of discharge 03/07/2022 Wound Care: You have steri-strips and Band-Aids over your incisions. You may remove Band- Aids in 48 hours and then shower. Leave the steri-strips (little pieces of skin tape) across the incision and allow them to peel off on their own. If they are still there in 10 days, you may remove them. When you shower, let soap and water run over incisions without scrubbing. Pat dry gently. Some bruising around your incisions is normal. Using ice packs will help minimize this swelling. No swimming or soaking in water (ie. hot tubs or baths) for two weeks. Your stitches will dissolve and do not need to be removed. Call Doctor for: Worsening redness or drainage from incision(s) lasting longer than 5 days after your surgery Any foul-smelling drainage from the incision Pain not controlled by pain medications Persistent nausea or vomiting Any fevers greater than 101.3 F For questions or concerns during business hours please call the Surgery Clinic at [phone] before 5 PM on weekdays. For questions after hours and on weekends please call the hospital gantry crane operator at [phone] and ask for the General Surgery resident bottom ironer. They may not be familiar with your case so be prepared to identify yourself and the procedure you had done. Activity Level: Increase your activity slowly. You may tire easily, so frequent rest periods may be necessary. Do not lift more than 10 pounds for 4 weeks. Walk three times a day. Use common sense. Don't exhaust yourself. Driving: Do not drive while taking narcotic pain medications. If you are no longer taking pain medication, it should be safe to drive when it no longer hurts getting in and out of the vehicle, and when you can quickly move your leg from the gas to the brake pedal without it causing pain. Diet: You should follow a post Sly diet, as instructed by the resident care coordinator in the hospital for a period of approximately 3 weeks. The main purpose of this diet is to have you consume foods that will slide easily down into your stomach. Most foods when well chewed should pass through the esophagus and into your stomach. However, patients do not always chew foods well enough. Slow, thorough chewing isrecommended. Moistening foods with sauce, gravy, syrup or other liquids can be helpful. You should consume only very soft, small particle foods. You should not eat bread or drink carbonated beverages. You should start with more bland foods and if these are tolerated you may increase the amount of spice in your food. If you find there are foods that don't agree with you, try these sparingly until y ou can tolerate them. You need to remain in an upright position for 30-60 minutes after you eat. You may find that you need to eat smaller meals with frequent between meal snacks to get enough calories. Pills: Please do your best to crush or open all pills/capsules bigger than a Tylenol or ibuprofen tablet for 4 weeks. See below for any specific changes to your home medications. The template below is a general size guide, any pills or capsules that are significantly bigger should be crushed/opened. Changes to Your Home Medications: Please discontinue the use of Prilosc (omeprazole) or any antacid medications until you are seen inthe clinic for follow-up. This procedure should have helped with the heartburn symptoms, and if themedication is not stopped, we will not know if the surgery was successful. The following medication CAN be crushed as needed based on the size template above: allopurinol, Lipitor, carvedilol, Lasix, Synthroid, lisinopril, spironolactone, Xarelto The following medications CANNOT be crushed and must be taken whole: anastrazole You may OPEN gabapentin capsules and sprinkle contents over pudding, yogurt, etc for 4 weeks. DO NOT TAKE TRAMADOL WHILE TAKING NEW PRESCRIPTION FOR OXYCODONE. Pain Management: Use heat or ice packs to your incisions. Take Tylenol 1000mg (two extra strength tablets) up to every 6 hours. Do NOT take more than 4000mg every day. DO NOT TAKE TRAMADOL WHILE TAKING NEW PRESCRIPTION FOR OXYCODONE. For pain not covered by Tylenol, take the prescription narcotic medicine: 5 mg every 4-6 hours Take the medication exactly as it is prescribed and make sure to read all instructions that come with the medication. Over the next couple of days you should be requiring less of this medication to control your pain, so that eventually you will not need any at all. You do not have to take all of the medication that was prescribed, if you have leftover pain medication this can be disposed of at a pharmacy or at your next follow up visit in the surgery clinic. Taking more than the prescribed amount of medication or using with alcohol or other drugs can causeyou to stop breathing resulting in coma, brain damage, or . Opioids can slow reaction time, cause drowsiness, or cloud judgement. Do not drive for 8 hours after any dose of opioid pain medication if one was prescribed for you. Using this drug may cause addiction. While addiction is more common in people with a personal or family history of addiction, it can occur in anyone. Opioids are at risk of being diverted by anyone with access to your home. Opioids should be stored in a safe and secure place, such as a locked cabinet or safe. Unused opioids should be disposed of appropriately. They may be returned to a take-back location, or mixed with a small amount of water and poured over an undesirable waste such as used coffee grounds or cat litter. Please note that most pain medications can cause constipation. You may use a stool softener such asMiralax to prevent this. Pain Tapering Instructions: Your pain should slowly and steadily diminish as you heal. If your pain level at the surgery site increases, you should call us. It is normal for increased pain if you are overly active or you decrease your pain medication, but a significant and unexplained increase in pain should be discussed with your surgeon. Pain medication is usually necessary for only 4-5 days postoperatively. It is important to have a plan for tapering off of pain medication. See below for tapering schedule sample. As your pain improves, start to wean oxycodone first by taking fewer tablets and taking it less often. Continue your Tylenol as you wean the narcotic. Wean the Tylenol last. Other Means for Pain Relief: Learn deep breathing exercises or meditation to help you relax. Reduce stress. Your body produces natural endorphins from exercise which can help reduce pain. Even walking is considered exercise. Talk with your provider/surgical team about what exercises are appropriate for youto perform. You may use a heating pad or apply ice to the painful area unless specifically discouraged by the surgical team. Find ways to distract yourself from the pain. Follow-up: PLEASE arrange follow up with your PCP within 1 week of discharge to discuss your renal function. Please call the clinic at [phone] to confirm or reschedule. Future Appointments Date Time Provider Department Center 04/03/2022 12:00 PM Shania Will MD [facility] documented in this encounter Medications at Time of Discharge Medication Sig Dispensed Refills Start Date End Date polyethylene glycoL (Miralax) 17 gram/dose Powder Take 17 g by mouth daily as needed (for constipation). 03/06/2022 ondansetron ODT (Zofran-ODT) 4 mg Tablet, Rapid Dissolve Take 1 tablet by mouth every 8 hours as needed for Nausea. 20 tablet 03/06/2022 senna (Senokot) 8.6 mg Tablet Take 1 tablet by mouth 2 times daily as needed for Constipation. 03/06/2022 oxyCODONE (Roxicodone) 5 mg Tablet Take 1 tablet by mouth every 6 hours as needed for Pain. 12 tablet 03/06/2022 lisinopriL (Zestril) 10 mg Tablet Take 10 mg by mouth daily. 12/19/2021 Xarelto 15 mg Tablet Take 15 mg by mouth daily. 12/19/2021 spironolactone (Aldactone) 25 mg Tablet 03/19/2021 anastrozole (Arimidex) 1 mg TabletIndications:Malign ant neoplasm of lower-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, estrogen receptor positive Take 1 tablet by mouth daily. 90 tablet 3 06/11/2021 carvediloL (Coreg) 6.25 mg Tablet Take 6.25 mg by mouth 2 times daily (with meals). acetaminophen (Tylenol) 500 mg Tablet TAKE TWO TABLETS BY MOUTH EVERY 8 HOURS NEEDED FOR PAIN 02/16/2020 ascorbic acid, Vitamin C, (Vitamin C) 500 mg Tablet Take 500 mg by mouth Daily. calcium carbonate 500 mg calcium (1,250 mg) Capsule Take 1,250 mg by mouth Daily. traMADoL (Ultram) 50 mg Tablet TAKE 1 TABLET BY MOUTH EVERY 12 HOURS NEEDED 04/17/2020 ferrous sulfate EC 325 mg (65 mg iron) Tablet, Delayed Release (E.C.) Take 325 mg by mouth daily. levothyroxine (Synthroid) 100 mcg Tablet 04/29/2019 allopurinol (Zyloprim) 100 mg Tablet Take 200 mg by mouth Daily. 03/24/2018 magnesium 250 mg Tablet Take by mouth 2 times daily. cholecalciferol, Vitamin D3, 25 mcg (1,000 unit) Capsule Take 1,000 each by mouth 2 times daily. cyanocobalamin, Vitamin B-12, (Vitamin B-12) 1,000 mcg Tablet Take 1,000 mcg by mouth. furosemide (LASIX) 40 mg Tablet Take 40 mg by mouth daily. gabapentin (NEURONTIN) 300 mg Capsule Take 300 mg by mouth 2 times daily. atorvastatin (LIPITOR) 40 mg Tablet Take 40 mg by mouth daily. documented as of this encounter Progress Notes * Olga Ocampo RN - 03/07/2022 10:25 AM EDT [facility] Short Stay Unit Discharge Note All relevant discharge milestones have been met by the patent. After Visit Summary and discharge teaching reviewed with the patient. IV access has been discontinued. All personal belongings have been returned to the patient/family upon their departure from the unit. Patient has been discharged to home The patient has been discharged without VNA services. * Nino Levy MD - 03/06/2022 2:48 PM EDT Progress Note Patient Name: Digna Olson Patient Age: 76 y.o. Admit date: 03/05/2022 Active Hospital Problem List: Active Hospital Problems Diagnosis ??? S/P repair of paraesophageal hernia Resolved Hospital Problems No resolved problems to display. Active Non-Hospital Problem List: Active Non-Hospital Problems Diagnosis ??? Atrial fibrillation with rapid ventricular response ??? Cardiomyopathy, nonischemic ??? 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 Bicuspid aortic valve ??? Dyspnea on exertion ??? Neurogenic claudication due to lumbar spinal stenosis ??? Anemia ??? Aortic valve stenosis ??? Overweight ??? Vertigo ??? Urinary incontinence ??? Iron deficiency anemia ??? Thoracic aortic aneurysm without rupture ??? Edema ??? Leg cramps ??? Hypercholesterolemia ??? Arthritis ??? Sleep disorder ??? Fatigue ??? Hypothyroidism ??? Gastroesophageal reflux disease ??? Hypertensive disorder Inpatient Meds: ??? magnesium sulfate 2 g Intravenous Once ??? gabapentin 300 mg Oral BID ??? carvediloL 6.25 mg Oral BID WC ??? sodium chloride 0.9 % (flush) 5 mL Intravenous BID ??? acetaminophen 650 mg Oral Q6H RACQUEL Interval History: Pain controlled. No significant nausea/vomiting. Tolerating clears. Voiding in the bathroom. Ambulating ROS: Negative Physical Exam: Gen - AAO x 3 CVS - S1 S2 + RS - No distress. On room air now Abdomen - soft, non distended, appropriately tender to incisions. Incisions clean/dry/intact Vitals: Patient Vitals for the past 24 hrs: Temp Heart Rate From SP02 Pulse Resp BP SpO2 O2 Flow Rate (L/min) O2 Device 03/05/22 1821 36.3 ??C (97.3 ??F) 70 bpm 76 16 125/75 99 % 6 L/min Simple mask 03/05/22 1830 -- 73 bpm 79 15 132/71 99 % -- RA 03/05/22 1845 -- 71 bpm 75 15 123/81 96 % 2 L/min NC 03/05/221899 -- 93 bpm 93 19 138/77 97 % 2 L/min NC 03/05/22 191 -- 72 bpm 77 23 133/73 98 % 2 L/min NC 03/05/22 1930 37 ??C (98.6 ??F) 90 bpm 90 15 130/62 97 % 2 L/min NC 03/05/222047 36.6 ??C (97.9 ??F) 84 bpm -- 15 121/75 96 % -- -- 03/06/22 0045 36.4 ??C (97.5 ??F) 82 bpm -- 16 113/67 98 % 2 L/min NC 03/06/22 0513 -- 62 bpm -- -- 121/88 97 % 2 L/min NC 03/06/22 0742 36.5 ??C (97.7 ??F) 57 bpm -- 16 120/62 93 % -- RA 03/06/22 1227 36.6 ??C (97.9 ??F) 59 bpm -- 16 116/73 97 % -- RA BMI: Weight: 87.6 kg (193 lb 1.6 oz) (03/05/22 1219) BMI (Calculated): 32.13 BMI Classification: Obese Ins and Outs: Intake/Output Summary (Last 24 hours) at 03/06/2022 1448 Last data filed at 03/06/2022 1300 Gross per 24 hour Intake 1803.33 ml Output 370 ml Net 1433.33 ml Assessment: 76 y/o F s/p laparoscopic paraesophageal hernia repair and toupet fundoplication #POD 1 Cr and K elevation - ?chronic vs. New in onset as patient has not been told of kidney disease in the past and previous labs have shown similar values Plan: Neuro - PO pain control with tylenol, PRN oxycodone CVS - Continue IVF at 50/hr. Home coreg RS - Incentive spirometry GI - Full liquids fundoplication diet. Zofran - Monitor Cr, K and UO. Hold diuretics Heme - Heparin DVT prophylaxis Will repeat AM labs D/w Dr. Mark Levy General Surgery Resident Associated attestation - Jennifer Flores MD - 03/06/2022 4:24 PM EDT I have seen and examined the patient, providing arroyo components as outlined below. I have reviewed the resident???s above note; my evaluation of the patient is below: POD#1 s/p lap paraesophageal hernia repair with toupet fundoplication. Overall she is recovering well. Pain is well controlled and she is tolerating liquids without dysphagia. She is ambulating and has urinated without issue. Her vitals and stable and abdominal exam benign. Her labs showed an elevated Cr at 1.32, improved to 1.25 at recheck. Hgb stable. She is likely hypovolemic. Will continue some maintenance fluids, encourage PO and hold her diuretics for now. Will recheck labs in the am. Jennifer Flores MD * Mary Ann Miramontes - 03/06/2022 11:48 AM EDT Nutrition Services Note - Low Nutrition Acuity Digna Olson is a 76 y.o. female Reason for intervention: education and consult Nutrition Plan: Continue current diet. Upon discharge- Sly diet x 3 weeks. Supplemental shakes for home use 1x/day. No carbonated beverages. No straw use. No bread products. No seeds/nuts. Monitor Lytes/Renal Labs 6 small meals encouraged daily. Meats ground or cut up fine w/ gravy. Zofran noted Moist foods/ Small bites/ chew all food well. Encourage good oral intake. Monitor weight. Support and encouragement provided. ? Clinical Nutrition was consulted to deliver a Sly Diet Education to pt Digna Olson. Staple Laster metwith pt at bedside to deliver full education, provide diet reference materials and answer any questions or concerns they may have in regards to the implementation of this diet. ?? Digna was pleasant and asked meaningful questions throughout encounter. She endorsed fair to good PO and that she was excited to eat. Some discomfort at meal times eating endorsed but stated this isnormal for her and that she is noticing some overall improvement post op.Staple Laster took note of this and encouraged the pt to continue to share any challenges that may arise with attending providers. Some weight loss observed but not c/s at this time. Renal/Lytes lab variance, continue to monitor. Some nausea but well managed by Zofran. No current n/v/c or other diet related concerns relayed. ?? Digna was very engaged throughout discussion and appeared to have great understanding of the information presented. Digna expressed that she believes she can do the sly diet and does not not foresee significant challenge incorporating this meal plan for 3wks. Patient voiced interest in severaloptions aligned with the diet and conveyed she is resourceful. Department contact information provided. Pt appreciate of underwriter's time. Nutrition to follow as needed. Active Orders Diet Post-Sly Full Liquid diet Full Liquid Frequency: Effective Now Number of Occurrences: Until Specified Admit Weight: 87.59 kg Estimated body mass index is 32.13 kg/m?? as calculated from the following: Height as of this encounter: 165.1 cm (5' 5). Weight as of this encounter: 87.6 kg (193 lb 1.6 oz). Wt Readings from Last 5 Encounters: 03/05/22 87.6 kg (193 lb 1.6 oz) 01/08/22 91.4 kg (201 lb 8 oz) 12/05/21 91.4 kg (201 lb 8 oz) 07/09/21 92.1 kg (203 lb) 06/11/21 92.8 kg (204 lb 9.6 oz) Weight loss: not clinically significant Appetite: Fair to good PO, eager to eat Food allergies:no known food allergies Chewing/Swallowing difficulty: patient on modified consistency diet well managed per pt Nausea/Vomiting: some nausea but well managed by zofran Patient education / questions: provided diet order education and patient with good understanding, written education and contact information provided and all nutrition related questions answered at this time Nutrition services to follow weekly through hospital course unless consulted in the interim. YULIANA Darden * Mehdi Perez MD - 03/05/2022 8:53 PM EDT POST-OPERATIVE ASSESSMENT Digna Olson is a 76 y.o. female with a h/o HTN (on lisinopril and coreg, bp 145/78 at last office visit), HLD (atorvastatin), atrial fibrillation s/p ablation 05/2018 (on xarelto), mild/moderate aortic valve stenosis with bicuspid valve (01/2022 echo showed an aortic valve area of 1.1, mean gradient 19), tachy induced cardiomyopathy (EF 62% on 06/2021 echo, 45% on stress test 10/2021, on furosemide, spironolactone), hypothyroidism (levothyroxine), ascending aortic aneurysm - 41mm on recent echo, anemia, RACHAEL on CPAP, breast cancer (anaztrozole), GERD (omeprazole). She is now s/p laparoscopic paraesophageal hernia repair with modified toupet fundoplasty without mesh for paraesophageal hernia. Intraoperative findings as follows: Toupet fundoplication created over a 60 fr bougie. Hill grade 1view on endoscopy post fundoplication. . Procedure(s): LAPAROSCOPIC PARAESOPHAGEAL HERNIA REPAIR W/FUNDOPLASTY, W/O MESH (WRVU 26.6) MODIFIER TOUPET FUNDOPLASTY S: Pt has no complaints. Denies nausea, vomiting, chest pain, shortness of breath. Tolerating Post-Sly Clear Liquid diet Clear Liquid. Says that she will try to urinate soon. O: BP 121/75 Pulse 90 Temp 36.6 ??C (97.9 ??F) (Oral) Resp 15 Ht 165.1 cm (5' 5) Wt 87.6kg (193 lb 1.6 oz) SpO2 96% BMI 32.13 kg/m?? UOP = DTV EXAM Gen: NAD, resting comfortably CV: regular rate on monitor Pulm: unlabored respirations on 2L NC Abd: soft, non-tender, non-distended Ext: no cyanosis or edema, SCDs in place LABS No results for input(s): WBC, HGB, HCT, PLATELET, PT, INR, PTT in the last 72 hours. No results for input(s): NA, K, CL, CO2, BUN, CREATININE, GLUCOSE, CALCIUM, MAGNESIUM, PHOS in the last 72 hours. IMAGING None new A/P: Digna Olson is a 76 y.o. female s/p above procedures, currently in stable condition and recovering well following surgery. Appropriate for the floor. Pain well-controlled. Hemodynamically stable, awaiting urine output. - Tylenol, Toradol, Gabapentin, Oxycodone for pain control - LR @ 100cc/hr - Post-Sly Clear Liquid Diet - F/u UOP - Continue post-op plan Mehdi Perez MD 03/05/2022 Minimally Invasive Surgery Pager #[phone] * Lorrie Slater RN - 03/05/2022 6:46 PM EDT Pt arrived to PACU from OR in bed. All monitors attached and alarms set appropriately. VSS on 2L NC 6 Lap sites CDI, well approximated with dermabond, no drainage. - Heat packs applied for gas pain. - bladder scanned for 340mLs @1820 -pt denies nausea. - PRN Oxy given per MAR for pain. - pt tolerated oral fluids well 1929- pt meets d/c criteria. 1851- report given to SSU RN documented in this encounter H&P Notes * Shania Will MD - 03/05/2022 1:02 PM EDT Images from the original note were not included. Day of Surgery Update Please see clinic note for further historical details, copied below. The patient's history and physical exam have been reviewed and completed. There has been no interval change from that of the pre-operative history and physical exam with RRRand CTAB. All preoperative questions were answered. Plan to proceed with laparoscopic paraesophageal hernia with Toupet fundoplication. SHANIA WILL MD MINIMALLY INVASIVE SURGERY VIRTUAL FOLLOW UP NOTE ?? She was last seen by me on 12/05/21 regarding a symptomatic paraesophageal hernia and consideration for surgical management. ? In summary, she??describes a many year history of heartburn, in addition to a 1 year history of early satiety and occasional nausea. ?? Her symptoms are otherwise summarized as follows: Heartburn -??Many years. ??If don't take omeprazole, it's worse. ??Well controlled on qd PPI Regurgitation -??Yes Dysphagia -??No Globus -??Yes, often Epigastric pain -??No Sour taste -??Yes Cough - yes Voice changes -??hoarseness Post prandial shortness of breath/Chest pain -??Uncomfortable fullness after eat. ??Some shortness of breath Antacids -??Tums Melena/Iron deficiency anemia -??Have been in the past Nausea/vomiting -??nausea, no vomiting Diarrhea/constipation -??No? Prior EGD/imaging -?? 09/03/21 CT chest: ??Type III hiatal hernia with organoaxial rotation without evidence of obstruction. ??Most of stomach in chest. ?? No endoscopy??- 15 or 20 years. ?? Since our last visit, she reports no change in symptoms. She underwent an upper endoscopy that showed: ?? Findings:??Large paraesophageal hernia with Baltazar's ulcers and retained food. ??No obstruction. ?? Biopsies showed: DIAGNOSIS A - Gastric ??Antrum for H Pylori, excision: - ??Antrum-type mucosa with reactive gastropathy. ? I reviewed the findings with her. ?? She is followed by cardiology at [facility], and is on xarelto. ?? Impression: ??Symptomatic ??paraesophageal hernia with organoaxial rotation without obstruction andcameron's ulcers. ??Risks of volvulus, ulceration and anemia were discussed. I believe Ms.??Byford??is an appropriate candidate for laparoscopic paraesophageal hernia repair and Toupet fundoplication. ?? We again reveiwed how this procedure works and its pros and cons. ??We also ??reviewed the risks ofsurgery, including the possibility of bleeding requiring ??transfusion, infection, injury to the stomach or esophagus, and the occasional ??need to convert to an open procedure. ??I explained that early satiety, gas ??bloating, and dysphagia occur in many patients after surgery, although these ??symptoms are usually temporary and tend to resolve with time. ??We discussed the risk of recurrence. ? She would like to move forward with surgery. ?? Will obtain her recent stress test, and plan a PCC evaluation given her cardiac history and deconditioning. ?? Will need to hold Xarelto 2 days prior to surgery. ?? 2 week preop diet ?? All questions answered. ?? Time Attestation: I spent a total of 15 minutes associated with this encounter, including chart review, the patient encounter, and documentation. --------- Digna Olson is a 76 y.o. female referred by Ana Her MD for evaluation of symptomatic paraesophageal hernia and consideration for surgical management. ?? She describes a many year history of heartburn, in addition to a 1 year history of early satiety and occasional nausea. ?? Her symptoms are otherwise summarized as follows: Heartburn - Many years. If don't take omeprazole, it's worse. Well controlled on qd PPI Regurgitation - Yes Dysphagia - No Globus - Yes, often Epigastric pain - No Sour taste - Yes Cough - yes Voice changes - hoarseness Post prandial shortness of breath/Chest pain - Uncomfortable fullness after eat. Some shortness of breath Antacids - Tums Melena/Iron deficiency anemia - Have been in the past Nausea/vomiting - nausea, no vomiting Diarrhea/constipation - No ?? Prior EGD/imaging - 09/03/21 CT chest: Type III hiatal hernia with organoaxial rotation without evidence of obstruction. Most of stomach in chest. ?? No endoscopy - 15 or 20 years ?? Past Medical History: Patient Active Problem List Diagnosis Code ??? Neurogenic claudication due to lumbar spinal stenosis M48.062 ??? 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, estrogen receptor tsxtpydmW14.512, Z17.0 ??? Anemia D64.9 ??? Aortic valve stenosis I35.0 ??? Arthritis M19.90 ??? Bicuspid aortic valve Q23.1 ??? Dyspnea on exertion R06.00 ??? Edema R60.9 ??? Fatigue R53.83 ??? Gastroesophageal reflux disease K21.9 ??? Hypercholesterolemia E78.00 ??? Hypertensive disorder I10 ??? Hypothyroidism E03.9 ??? Iron deficiency anemia D50.9 ??? Leg cramps R25.2 ??? Overweight E66.3 ??? Atrial fibrillation with rapid ventricular response I48.91 ??? Sleep disorder G47.9 ??? Thoracic aortic aneurysm without rupture I71.2 ??? Urinary incontinence R32 ??? Vertigo R42 ??? Cardiomyopathy, nonischemic I42.8 ? Past Surgical History Past Surgical History: Procedure Laterality Date ??? BREAST BIOPSY Left 02/25/2017 ?? invasive mucinous ca med grade ??? BREAST LUMPECTOMY Left 03/2017 ??? PRO BX/REMV, LYMPH NODE, DEEP AXILL Left 03/30/2017 ?? BIOPSY OR EXCISION OF LYMPH NODE(S), OPEN, DEEP AXILLARY NODE(S) (WRVU 6.43) performed by Malika Chen MD at [facility] MAIN OR ??? PRO INTRAOP SENTINEL LYMPH ID W/DYE INJECTION Left 03/30/2017 ?? INTRAOPERATIVE ID (MAPPING) SENTINEL LYMPH NODE,INCLUDES INJECTION (WRVU 2.5) performed by Malika Chen MD at [facility] MAIN OR ??? PRO MASTECTOMY PARTIAL Left 03/30/2017 ?? MASTECTOMY PARTIAL (WRVU 10.13) performed by Malika Chen MD at [facility] MAIN OR ?? Cholecystectomy ?? Medications: ?? Current Outpatient Medications: ??? spironolactone (Aldactone) 25 mg Tablet, , Disp: , Rfl: ??? anastrozole (Arimidex) 1 mg Tablet, Take 1 tablet by mouth daily., Disp: 90 tablet, Rfl: 3 ??? carvediloL (Coreg) 6.25 mg Tablet, Take 6.25 mg by mouth 2 times daily (with meals)., Disp: , Rfl: ??? acetaminophen (Tylenol) 500 mg Tablet, TAKE TWO TABLETS BY MOUTH EVERY 8 HOURS NEEDED FOR PAIN, Disp: , Rfl: ??? ascorbic acid, Vitamin C, (Vitamin C) 500 mg Tablet, Take 500 mg by mouth Daily., Disp: , Rfl: ??? calcium carbonate 500 mg calcium (1,250 mg) Capsule, Take 1,250 mg by mouth Daily., Disp: , Rfl: ??? traMADoL (Ultram) 50 mg Tablet, TAKE 1 TABLET BY MOUTH EVERY 12 HOURS NEEDED, Disp: , Rfl: ??? ferrous sulfate EC 325 mg (65 mg iron) Tablet, Delayed Release (E.C.), Take 325 mg by mouth daily., Disp: , Rfl: ??? rivaroxaban (XARELTO ORAL), Take by mouth., Disp: , Rfl: ??? levothyroxine (Synthroid) 100 mcg Tablet, , Disp: , Rfl: ??? allopurinol (Zyloprim) 100 mg Tablet, Take 200 mg by mouth Daily., Disp: , Rfl: ??? magnesium 250 mg Tablet, Take by mouth 2 times daily., Disp: , Rfl: ??? cholecalciferol, Vitamin D3, 25 mcg (1,000 unit) Capsule, Take 1,000 each by mouth 2 times daily., Disp: , Rfl: ??? cyanocobalamin, Vitamin B-12, (Vitamin B-12) 1,000 mcg Tablet, Take 1,000 mcg by mouth., Disp: , Rfl: ??? furosemide (LASIX) 40 mg Tablet, Take 40 mg by mouth daily., Disp: , Rfl: ??? gabapentin (NEURONTIN) 300 mg Capsule, Take 300 mg by mouth 2 times daily., Disp: , Rfl: ??? lisinopril (PRINIVIL;ZESTRIL) 40 mg Tablet, Take 10 mg by mouth daily. Taking 5 mg, Disp: , Rfl: ??? atorvastatin (LIPITOR) 40 mg Tablet, Take 40 mg by mouth daily., Disp: , Rfl: ??? omeprazole (PriLOSEC) 20 mg Capsule, Delayed Release(E.C.), Take 20 mg by mouth daily., Disp: ,Rfl: ?? Allergies: Cat dander ?? Family History: Family History Family History Problem Relation Age of Onset ??? Deep Vein Thrombosis Sister ? Osteoporosis Sister ? Arthritis Sister ? Suicide Brother ? Rectal Cancer Maternal Grandfather ? At a young age ??? Pancreatic Cancer Maternal Aunt ? Early 40's? Breast Cancer Maternal Cousin 40 ?? daughter to affected M Aunt) ??? Pancreatic Cancer Maternal Cousin ? 60s ??? Pancreatic Cancer Maternal Cousin ? Whipple surgery ??? Prostate Cancer Maternal Cousin ? Prostate Cancer Maternal Cousin ? Leukemia Maternal Cousin ? Heart Disease Maternal Cousin ? Ovarian Cancer Neg Hx ? Social History: reports that she has never smoked. She has never used smokeless tobacco. She reports current alcohol use. Rare etoh ?? Review of systems is negative for any unexplained weight loss or weight gain. She denies any cough,chest pain or shortness on breath on exertion. Climbs stairs at home. She denies headaches, dizziness, weakness, numbness or ataxia. Bowel and bladder elimination is normal. All other system reviews are negative. Patient Vitals for the past 24 hrs: ?? Pulse Resp BP SpO2 12/05/21 1459 67 16 150/71 98 % ?? Body mass index is 33.53 kg/m??. On physical examination, this is a well appearing female. There is no scleral or skin icterus. Mucous membranes are moist and her pupils reactive. Her lungs are clear to auscultation. Heart is regular, rate, and rhythm and without murmurs. Her abdomen is nontender and without palpable masses. Her extremity and neurological exam are grossly normal. ?? Impression: Symptomatic paraesophageal hernia. Risks of volvulus, ulceration and anemia were discussed. I believe Ms. Olson is an appropriate candidate for laparoscopic paraesophageal hernia repair and fundoplication. ?? The majority of this visit was spent discussing how this procedure works and its pros and cons. We also reviewed the risks of surgery, including the possibility of bleeding requiring transfusion, infection, injury to the stomach or esophagus, and the occasional need to convert to an open procedure.I explained that early satiety, gas bloating, and dysphagia occur in many patients after surgery, although these symptoms are usually temporary and tend to resolve with time. We discussed the risk ofrecurrence. ?? She would like to think about whether to go forward with surgery. In the interim, we agreed to moveforward with an upper endoscopy. I will follow up with her afterward to finalize a surgical plan. documented in this encounter Nursing Notes * Pretty Hampton RN - 03/06/2022 5:54 AM EDT 0300: Assumed care of pt. Monitors on, alarms active and audible. documented in this encounter Miscellaneous Notes * Brief Op Note - Prakash Mendez - 03/05/2022 5:54 PM EDT Brief Operative Note Patient Name: Digna Olson : [id number] MR#: [id number] Case Date: 03/05/2022 Surgeon: Surgeon(s) and Role: * Shania Will MD - Primary * Prakash Mendez MD - Resident * Jennifer Flores MD - Assisting Attending Preoperative diagnosis: Paraesophageal Hernia Postoperative diagnosis: Paraesophageal Hernia Procedure(s) (LRB): LAPAROSCOPIC PARAESOPHAGEAL HERNIA REPAIR W/FUNDOPLASTY, W/O MESH (WRVU 26.6) (N/A) MODIFIER TOUPET FUNDOPLASTY (N/A) Anesthesia: General Local Findings: - Laparoscopic paraesophageal hernia repair - Toupet fundoplication Complications: None Estimated Blood Loss: 20 mL* No values recorded between 03/05/2022 2:32 PM and 03/05/2022 5:45 PM * Specimens removed during surgery: * No orders in the log * Fluids: Intraprocedure Crystalloid Total Intake Lactated Ringers 1000.00 mL Total Intake 1000 mL Output Blood Loss 20 mL Total Output 20 mL Net Net Volume 980 mL PRBCs: none (See Anesthesia Record/Report for Other Blood Products) Urine Output: (no urine output recorded) Drains: None Disposition: awakened from anesthesia, extubated and taken to the recovery room in a stable condition, having suffered no apparent untoward event. Condition: doing well without problems (Please see the Surgical Encounter Summary for any Implant and Specimen details pertinent to this patient.) Surgical Infection Prevention Bundle Used? N/A * Op Note - Jennifer Flores MD - 03/05/2022 2:32 PM EDT [facility] [place] Patient Name: Digna Olson : [id number] MR#: [id number] Case Date: 03/05/2022 Surgeon: Surgeon(s) and Role: * Shania Will MD - Primary * Prakash Mendez MD - Resident * Jennifer Flores MD - Assisting Attending Preoperative diagnosis: Paraesophageal Hernia Postoperative diagnosis: Paraesophageal Hernia Procedure(s) (LRB): LAPAROSCOPIC PARAESOPHAGEAL HERNIA REPAIR W/FUNDOPLASTY, W/O MESH (WRVU 26.6) (N/A) MODIFIER TOUPET FUNDOPLASTY (N/A) Findings: Toupet fundoplication created over a 60 fr bougie. Hill grade 1 view on endoscopy post fundoplication. Anesthesia: General Estimated Blood Loss: 20 mL Specimens removed during surgery: None Drains: None Surgical Closure: Primary Closure - skin incision is completely closed without any wires, maury, drains or other devices Disposition: awakened from anesthesia, extubated and taken to the recovery room in a stable condition, having suffered no apparent untoward event. Condition: doing well without problems (Please see the Surgical Encounter Summary for any Implant and Specimen details pertinent to this patient.) HPI/Surgical Indications: This is a 76 yo woman with a symptomatic type III paraesophageal hernia who was being followed by Dr. Will. They had decided to proceed with surgical repair and she wastaken to the OR today. I was called in to the OR during the case due to Dr. Will being ill andtook over the remainder of the case. Procedure Description: Please see Dr. Will's note for the first portion of the procedure. At the time I took over the case, the patient had already been intubated, positioned and surgery started. Dr. Will had reduced the entire stomach into the abdomen and did the majority of the mediastinal dissection to mobilize the esophagus. A Lety which was placed around the esophagus was used to retract the GE junction into the abdomen. I did some additional minor mobilization along the left side of the esophagus but at that point, there was at least 4cm of esophagus which had been mobilized into the abdomen. We then proceeded with crural closure. The crura were closed with 0 Surgilon sutures. Three with pledgets and an additional two which were non-pledgeted. A 60fr bougie was then passed into the esophagus and into the stomach. A Toupet fundoplication was then created. Three sutures were placed on either side of the esophagus securing the fundus to the esophagus using 2-0 Surgilon sutures. Once thiswas complete, the bougie was removed. A gastroscope was then passed into the esophagus and into thestomach. With retroflexion, a Hill grade 1 view was seen at the GE junction. The gastroscope was removed. The liver retractor was removed under direct vision. The 12mm port site was closed using an 0Vicryl on a suture passer. The abdomen was then desufflated and ports were removed. The incisions were closed with 4-0 Monocryl and dressed with dermabond. Sponge, instrument and needle counts were correct and verified x2. The patient was awoken from anesthesia and transported to the recovery area in stable condition. Surgical Infection Prevention Bundle Used? N/A Attestation: Case Date: 03/05/2022 I was present and I participated during the entire procedure (does not need to include opening and closing). Jennifer Flores MD 03/05/2022 documented in this encounter Plan of Treatment Not on file documented as of this encounter Procedures Procedure Name Priority Date/Time Associated Diagnosis Comments HEMOGRAM Routine 03/07/2022 5:08 AM EDT DIFFERENTIAL, AUTOMATED Routine 03/07/20 5:08 AM EDT HC CBC,PLT & AUTO DIFF Routine 5:08 AM EDT HC PHOSPHORUS, SERUM Routine 03/07/2022 5:08 AM EDT HC MAGNESIUM, SERUM Routine 03/07/2022 5 :08 AM EDT BASIC METABOLIC PANEL (NON-FASTING) Routine 03/07/2022 5:08 AM EDT HEMOGRAM Timed 03/06/2022 10:15 AM EDT DIFFERENTIAL, AUTOMATED Timed 03/06/20 10:15 AM EDT HC CBC,PLT & AUTO DIFF Timed 11/03/202 2 10:15 AM EDT HC PHOSPHORUS, SERUM Timed 03/06/2022 10:15 AM EDT HC MAGNESIUM, SERUM Timed 03/06/2022 1 0:15 AM EDT BASIC METABOLIC PANEL (NON-FASTING) Timed 03/06/2022 10:15 AM EDT HEMOGRAM Routine 03/06/2022 4:29 AM EDT DIFFERENTIAL, AUTOMATED Routine 03/06/20 4:29 AM EDT HC CBC,PLT & AUTO DIFF Routine 4:29 AM EDT BASIC METABOLIC PANEL (NON-FASTING) Routine 03/06/2022 4:29 AM EDT MODIFIER TOUPET FUNDOPLASTY 03/05/2022 1:58 PM EDT Paraesophageal Hernia Laparoscopy Repair Paraesophageal Hernia Incl Fundoplasty W/O Mesh ([id number]) 03/05/2022 1:58 PM EDT Paraesophageal Hernia POCT GLUCOSE Routine 03/05/2022 12:18 PM EDT LAPAROSCOPIC PARAESOPHAGEAL HERNIA REPAIR W FUNDOPLASTY, W/O MESH Routine 03/05/2022 12:02 PM EDT documented in this encounter Results * (ABNORMAL) Differential, Automated (03/07/2022 5:08 AM EDT) Neutrophils % 80.0 % [facility] Neutr Abs (ANC) 5.30 1.70 - 6.10 x10(3)/mc L [facility] Lymphocytes % 12.1 % [facility] Lymphocytes Abs 0.8(L) 0.9 - 3.2 x10(3)/mc L [facility] Monocytes % 7.6 % [facility] Monocyte Abs 0.5 0.3 - 0.9 x10(3)/mc L [facility] Eosinophils % 0.0 % [facility] Eosinophils Abs 0.0 0.0 - 0.4 x10(3)/[facility] Basophils % 0.0 % [facility] Basophils Abs 0.0 0.0 - 0.1 x10(3)/[facility] Immature Gran % 0.30 % [facility] Comment: Immature granulocytes(IG's)percentage and absolute count will include metamyelocytes, myelocytes, and promyelocytes. Blood smears from CBCs yielding IG's will be scanned manually for concordance. If this scan disagrees with the automated IG or if promyelocytes are noted, a manual differential will be performed. Elenita Gran Abs 0.02 0.00 - 0.04 x10(3)/[facility] Blood 03/07/2022 5:08 AM EDT 03/07/2022 5:19 AM EDT Narrative Resulting Agency Comment Spec In Lab Nino Levy MD HEMATOLOGY ORDERABLE S Performing Organization Address City/State/[facility] Co de Phone Number [facility] [place] [address] * (ABNORMAL) Hemogram (03/07/2022 5:08 AM EDT) WBC 6.6 4.0 - 9.5 x10(3)/[facility] RBC 3.16(L) 4.00 - 5.21 x10(6)/[facility] Hemoglobin 10.7(L) 11.7 - 15.5 g/dL [facility] Hematocrit 31.7(L) 35.7 - 45.8 % [facility] MCV 100.3(H) 82.6 - 94.4 fL [facility] MCH 33.9(H) 27.1 - 32.0 pg [facility] MCHC 33.8 31.7 - 35.0 g/dL [facility] Platelets 110(L) 145 - 357 x10(3)/[facility] RDWSD 47.5(H) 37.0 - 46.0 fL [facility] RDWCV 12.9 11.5 - 14.1 % [facility] MPV 11.7 7.6 - 12.9 fL [facility] nRBC % Auto 0.0 % [facility] nRBC Abs Auto 0.000 0.000 - 0.000 x10(3)/mcL [facility] Blood 03/07/2022 5:08 AM EDT 03/07/2022 5:19 AM EDT Narrative Resulting Agency Comment Spec In Lab Nino Levy MD HEMATOLOGY ORDERABLE S [facility] [place] [address] * Phosphorus (03/07/2022 5:08 AM EDT) Phosphorus 2.7 2.5 - 4.5 mg/dL [facility] Blood 03/07/2022 5:08 AM EDT 03/07/2022 5:19 AM EDT Narrative Resulting Agency Comment Spec In Lab Shania Will MD CHEMISTRY ORDERABLE S [facility] [place] [place] [address] * Magnesium (03/07/2022 5:08 AM EDT) Magnesium 0.89 0.69 - 1.07 mmol/L [facility] Blood 03/07/2022 5:08 AM EDT 03/07/2022 5:19 AM EDT Narrative Resulting Agency Comment Spec In Lab Shania Will MD CHEMISTRY ORDERABLE S [facility] [place] [address] * (ABNORMAL) Basic Metabolic Panel (non-fasting) (03/07/2022 5:08 AM EDT) Glucose Lvl 111 65 - 199 mg/dL [facility] Comment:Diabetes: >=200 mg/d L plus symptoms BUN 22(H) 8 - 18 mg/dL [facility] Creatinine 0.93 0.70 - 1.20 mg/dL [facility] Sodium 131(L) 135 - 145 mmol/L [facility] Potassium 4.5 3.5 - 5.0 mmol/L [facility] Comment: Please note: ??Patients with WBC >100,000 may have falsely elevated Potassium levels. ??For accurate Potassium quantification in these patients send serum separator tube (gold top) for subsequent determinations. ??Contact the Clinical Chemistry Laboratory if there are any questions. Chloride 100 98 - 107 mmol/L [facility] CO2 22 22 - 31 mmol/L [facility] Anion Gap 9 5 - 15 mmol/L [facility] Calcium 9.2 8.5 - 10.5 mg/dL [facility] Estimated GFR 64 >=60 mL/min/1. 73 m?? [facility] Comment: This patient's estimated GFR was calculated using the 2020 CKD-EPI equation. The estimated GFR can vary from the measured GFR by up to 30% in the absence of rapidly changing kidney function. Assessment of the estimated GFR is not appropriate when creatinine concentrations are rapidly changing. For clinical situations in which a more precise estimate of GFR is necessary, consider alternative methods of GFR estimation such as a 24-hour urine creatinine clearance. Assignment of CKD stage 1-5 for patients with an eGFR near the transition point between stages may be based on clinical assessment of muscle mass and symptoms in addition to eGFR. Blood 03/07/2022 5:08 AM EDT 03/07/2022 5:19 AM EDT Narrative Resulting Agency Comment Spec In Lab Sahnia Will MD CHEMISTRY ORDERABLE S [facility] [place] [address] * (ABNORMAL) Differential, Automated (03/06/2022 10:15 AM EDT) Pathologist [facility] Neutrophils % 90.7 % [facility] Neutr Abs (ANC) 5.79 1.70 - 6.10 x10(3)/[facility] Lymphocytes % 5.0 % [facility] Lymphocytes Abs 0.3(L) 0.9 - 3.2 x10(3)/[facility] Monocytes % 3.8 % [facility] Monocyte Abs 0.2(L) 0.3 - 0.9 x10(3)/[facility] Eosinophils % 0.0 % [facility] Eosinophils Abs 0.0 0.0 - 0.4 x10(3)/[facility] Basophils % 0.0 % [facility] Basophils Abs 0.0 0.0 - 0.1 x10(3)/[facility] Immature Gran % 0.50 % [facility] Comment: Immature granulocytes(IG's)percentage and absolute count will include metamyelocytes, myelocytes, and promyelocytes. Blood smears from CBCs yielding IG's will be scanned manually for concordance. If this scan disagrees with the automated IG or if promyelocytes are noted, a manual differential will be performed. Elenita Gran Abs 0.03 0.00 - 0.04 x10(3)/[facility] Blood 03/06/2022 10:1 5 AM EDT 03/06/2022 10:21 AM EDT Narrative Resulting Agency Comment Spec In Lab aMryam MUELLER HEMATOLOGY ORDERABL ES [facility] [place] [address] * (ABNORMAL) Hemogram (03/06/2022 10:15 AM EDT) WBC 6.4 4.0 - 9.5 x10(3)/[facility] RBC 3.07(L) 4.00 - 5.21 x10(6)/[facility] Hemoglobin 10.5(L) 11.7 - 15.5 g/dL [facility] Hematocrit 31.1(L) 35.7 - 45.8 % [facility] MCV 101.3(H) 82.6 - 94.4 fL [facility] MCH 34.2(H) 27.1 - 32.0 pg [facility] MCHC 33.8 31.7 - 35.0 g/dL [facility] Platelets 111(L) 145 - 357 x10(3)/[facility] RDWSD 47.2(H) 37.0 - 46.0 [facility] RDWCV 12.9 11.5 - 14.1 % [facility] MPV 11.5 7.6 - 12.9 [facility] nRBC % Auto 0.0 % [facility] nRBC Abs Auto 0.000 0.000 - 0.000 x10(3)/[facility] Blood 03/06/2022 10:1 5 AM EDT 03/06/2022 10:21 AM EDT Narrative Resulting Agency Comment Spec In Lab Maryam MUELLER HEMATOLOGY ORDERABL ES [facility] [address] * Phosphorus (03/06/2022 10:15 AM EDT) Phosphorus 3.3 2.5 - 4.5 mg/dL [facility] Blood 03/06/2022 10:1 5 AM EDT 03/06/2022 10:21 AM EDT Narrative Resulting Agency Comment Spec In Lab Shania Will MD CHEMISTRY ORDERABLE S [facility] [place] [address] * Magnesium (03/06/2022 10:15 AM EDT) Pathologist [facility] Magnesium 0.69 0.69 - 1.07 mmol/L [facility] Blood 03/06/2022 10:1 5 AM EDT 03/06/2022 10:21 AM EDT Narrative Resulting Agency Comment Spec In Lab Shania Will MD CHEMISTRY ORDERABLE S Performing Organization Address [facility]/ZIP Co de Phone Number [facility] [place] [address] * (ABNORMAL) Basic Metabolic Panel (non-fasting) (03/06/2022 10:15 AM EDT) [facility] Glucose Lvl 155 65 - 199 mg/dL [facility] Comment:Diabetes: >=200 mg/d L plus symptoms BUN 29(H) 8 - 18 mg/dL [facility] Creatinine 1.25(H) 0.70 - 1.20 mg/dL [facility] Sodium 134(L) 135 - 145 mmol/L [facility] Potassium 4.8 3.5 - 5.0 mmol/L [facility] Comment: Please note: ??Patients with WBC >100,000 may have falsely elevated Potassium levels. ??For accurate Potassium quantification in these patients send serum separator tube (gold top) for subsequent determinations. ??Contact the Clinical Chemistry Laboratory if there are any questions. Chloride 101 98 - 107 mmol/L [facility] CO2 23 22 - 31 mmol/L [facility] Anion Gap 10 5 - 15 mmol/L [facility] Calcium 8.9 8.5 - 10.5 mg/dL [facility] Estimated GFR 45(L) >=60 mL/min/1. 73 m?? [facility] Comment: This patient's estimated GFR was calculated using the 2020 CKD-EPI equation. The estimated GFR can vary from the measured GFR by up to 30% in the absence of rapidly changing kidney function. Assessment of the estimated GFR is not appropriate when creatinine concentrations are rapidly changing. For clinical situations in which a more precise estimate of GFR is necessary, consider alternative methods of GFR estimation such as a 24-hour urine creatinine clearance. Assignment of CKD stage 1-5 for patients with an eGFR near the transition point between stages may be based on clinical assessment of muscle mass and symptoms in addition to eGFR. Blood 03/06/2022 10:1 5 AM EDT 03/06/2022 10:21 AM EDT Narrative Resulting Agency Comment Spec In Lab Shania Will MD CHEMISTRY ORDERABLE S Performing Organization Address City/State/[facility] Co de Phone Number [facility] [place] [address] * (ABNORMAL) Differential, Automated (03/06/2022 4:29 AM EDT) Neutrophils % 90.5 % [facility] Neutr Abs (ANC) 4.47 1.70 - 6.10 x10(3)/mc L [facility] Lymphocytes % 6.9 % [facility] Lymphocytes Abs 0.3(L) 0.9 - 3.2 x10(3)/mc L [facility] Monocytes % 2.2 % [facility] Monocyte Abs 0.1(L) 0.3 - 0.9 x10(3)/mc L [facility] Eosinophils % 0.0 % [facility] Eosinophils Abs 0.0 0.0 - 0.4 x10(3)/mc L [facility] Basophils % 0.2 % [facility] Basophils Abs 0.0 0.0 - 0.1 x10(3)/mc L [facility] Immature Gran % 0.20 % [facility] Comment: Immature granulocytes(IG's)percentage and absolute count will include metamyelocytes, myelocytes, and promyelocytes. Blood smears from CBCs yielding IG's will be scanned manually for concordance. If this scan disagrees with the automated IG or if promyelocytes are noted, a manual differential will be performed. Elenita Gran Abs 0.01 0.00 - 0.04 x10(3)/mc L [facility] Blood 03/06/2022 4:29 AM EDT 03/06/2022 4:49 AM EDT Narrative Resulting Agency Comment Spec In Lab Prakash Mendez MD HEMATOLOGY ORDERABLE S [facility] [place] [address] * (ABNORMAL) Hemogram (03/06/2022 4:29 AM EDT) WBC 4.9 4.0 - 9.5 x10(3)/[facility] RBC 3.08(L) 4.00 - 5.21 x10(6)/[facility] Hemoglobin 10.5(L) 11.7 - 15.5 g/dL [facility] Hematocrit 31.0(L) 35.7 - 45.8 % [facility] MCV 100.6(H) 82.6 - 94.4 fL [facility] MCH 34.1(H) 27.1 - 32.0 pg [facility] MCHC 33.9 31.7 - 35.0 g/dL [facility] Platelets 104(L) 145 - 357 x10(3)/[facility] RDWSD 47.5(H) 37.0 - 46.0 fL [facility] RDWCV 12.9 11.5 - 14.1 % [facility] MPV 11.8 7.6 - 12.9 fL [facility] nRBC % Auto 0.0 % [facility] nRBC Abs Auto 0.000 0.000 - 0.000 x10(3)/mcL [facility] Blood 03/06/2022 4:29 AM EDT 03/06/2022 4:49 AM EDT Narrative Resulting Agency Comment Spec In Lab Prakash Mendez MD HEMATOLOGY ORDERABLE S [facility] [place] [address] * (ABNORMAL) Basic Metabolic Panel (non-fasting) (03/06/2022 4:29 AM EDT) Glucose Lvl 140 65 - 199 mg/dL [facility] Comment:Diabetes: >=200 mg/d L plus symptoms BUN 31(H) 8 - 18 mg/dL [facility] Creatinine 1.32(H) 0.70 - 1.20 mg/dL [facility] Sodium 136 135 - 145 mmol/L [facility] Potassium 5.3(H) 3.5 - 5.0 mmol/L [facility] Comment: Please note: ??Patients with WBC >100,000 may have falsely elevated Potassium levels. ??For accurate Potassium quantification in these patients send serum separator tube (gold top) for subsequent determinations. ??Contact the Clinical Chemistry Laboratory if there are any questions. Chloride 103 98 - 107 mmol/L [facility] CO2 23 22 - 31 mmol/L [facility] Anion Gap 10 5 - 15 mmol/L [facility] Calcium 9.0 8.5 - 10.5 mg/dL [facility] Estimated GFR 42(L) >=60 mL/min/1. 73 m?? [facility] Comment: This patient's estimated GFR was calculated using the 2020 CKD-EPI equation. The estimated GFR can vary from the measured GFR by up to 30% in the absence of rapidly changing kidney function. Assessment of the estimated GFR is not appropriate when creatinine concentrations are rapidly changing. For clinical situations in which a more precise estimate of GFR is necessary, consider alternative methods of GFR estimation such as a 24-hour urine creatinine clearance. Assignment of CKD stage 1-5 for patients with an eGFR near the transition point between stages may be based on clinical assessment of muscle mass and symptoms in addition to eGFR. Blood 03/06/2022 4:29 AM EDT 03/06/2022 4:49 AM EDT Narrative Resulting Agency Comment Spec In Lab Shania Will MD CHEMISTRY ORDERABLE S [facility] [place] [address] * POCT Glucose (03/05/2022 12:18 PM EDT) POC Glucose 94 65 - 199 mg/dL [facility] Comment: Supplemental ranges: <140 mg/dL before meals <180 mg/dL all other times of the day Blood 03/05/2022 12:1 8 PM EDT 03/05/2022 12:18 PM EDT Shania Will MD POINT OF CARE TEST ORDERABLES Performing Organization Address City/[facility]/ZIP Co de Phone Number [facility] [place] [address] documented in this encounter Visit Diagnoses Diagnosis S/P repair of paraesophageal hernia Other postprocedural status Paraesophageal hernia Diaphragmatic hernia without mention of obstruction or gangrene documented in this encounter Admitting Diagnoses Diagnosis S/P repair of paraesophageal hernia Other postprocedural status Paraesophageal hernia Diaphragmatic hernia without mention of obstruction or gangrene documented in this encounter Administered Medications Inactive Administered Medications - up to 3 most recent administrations Medication Order MAR Action Action Date Dose Rate Site acetaminophen (Tylenol) (32.02 mg/mL) oral liquid 650 mg 650 mg, Oral, EVERY 6 HOURS SCHEDULED, First dose on Thu03/05/22 at 1915, Until Discontinued, Maximum dose of acetaminophen is 4000 mg from all sources in 24 hours. When ordered for pain, acetaminophen should be given even when other ordered pain medications are indicated. , Routine Given 03/07/2022 10:00 AM EDT 650 mg Given 03/07/2022 5:03 AM EDT 650 mg Given 03/06/2022 10:39 PM EDT 650 mg acetaminophen (Tylenol) tablet 975 mg 975 mg, Oral, ONCE, 1 dose, On Thu03/05/22 at 1245, Maximum dose of acetaminophen is 4000 mg from all sources in 24 hours. When ordered for pain, acetaminophen should be given even when other ordered pain medications are indicated. , Day of Surgery (Day of Procedure), Routine Given 03/05/2022 12:46 PM EDT 975 mg carvediloL (Coreg) tablet 6.25 mg 6.25 mg, Oral, 2 TIMES DAILY WITH MEALS, First dose on Radha 03/06/22 at 0800, Until Discontinued, Hold for SBP < 90 or HR < 60, Routine Given 03/07/2022 8:24 AM EDT 6.25 mg Given 03/06/2022 5:02 PM EDT 6.25 mg Given 03/06/2022 8:55 AM EDT 6.25 mg enoxaparin (Lovenox) (40 mg/0.4 mL) subcutaneous injection 40 mg 40 mg, Subcutaneous, NIGHTLY, First dose on Thu03/05/22 at 2145, Until Discontinued, Routine Given 03/05/2022 10:22 PM EDT 40 mg gabapentin (Neurontin) capsule 300 mg 300 mg, Oral, 2 TIMES DAILY, First dose on Thu03/05/22 at 2145, Until Discontinued, Routine Given 03/07/2022 8:24 AM EDT 300 mg Given 03/06/2022 10:39 PM EDT 300 mg Given 03/06/2022 8:56 AM EDT 300 mg heparin (porcine) (5,000 units/1 mL) subcutaneous injection 5,000 Units 5,000 Units, Subcutaneous, ONCE, 1 dose, On Thu03/05/22 at 1245, Day of Surgery (Day of Procedure), Routine Given 03/05/2022 12:46 PM EDT 5,000 U nits heparin (porcine) (5,000 units/1 mL) subcutaneous injection 5,000 Units 5,000 Units, Subcutaneous, EVERY 8 HOURS SCHEDULED, First dose on Radha 03/06/22 at 2200, Until Discontinued, Routine Given 03/07/2022 6:18 AM EDT 5,000 Units Given 03/06/2022 10:39 PM EDT 5,000 Units ketorolac (Toradol) (30 mg/mL) injection 15 mg 15 mg, Intravenous, EVERY 6 HOURS PRN, 8 doses, Starting on Thu03/05/22 at 1848, Until Thu03/06/22 at 0621, Pain, Mild Pain 1-3, If both Acetaminophen and Ketorolac are ordered, start with Acetaminophen. If pain is not relieved within 30 minutes, give Ketorolac., Routine Given 03/05/2022 7:13 PM EDT 15 mg lactated Ringers 1,000 mL IV bolus Intravenous, ONCE, 1 dose, On Radha 03/06/22 at 0500 New Bag 03/06/2022 4:10 AM EDT lactated ringers infusion 1,000 mL, at 100 mL/hr, Intravenous, CONTINUOUS, Starting on Thu03/05/22 at 1915, Until Thu03/06/22 at 0652, Recovery (Recovery-Hospital Unit) New Bag 03/05/2022 6:49 PM EDT 1,000 mLs 100 mL /hr lactated ringers infusion 50 mL/hr, Intravenous, CONTINUOUS, Starting on Thu03/06/22 at 0745, Until Thu03/07/22 at 1247, Recovery (Recovery-Hospital Unit) New Bag 03/06/2022 10:58 PM EDT 50 mL/hr 50 mL/hr New Bag 03/06/2022 8:56 AM EDT 50 mL/hr 50 mL/hr magnesium sulfate 2 g in sterile water 50 mL infusion 2 g, Intravenous, ONCE, 1 dose, On Thu03/06/22 at 1430, Administer over 120 Minutes New Bag 03/06/2022 3:35 PM EDT 2 g 25 mL/hr ondansetron (pf) (Zofran) (2 mg/mL) injection 4 mg 4 mg, Intravenous, EVERY 8 HOURS PRN, Starting on Thu03/05/22 at 2050, Until Thu03/07/22 at 1247, Nausea, May repeat times one in 30 minutes if ineffective. If multiple antiemetics are ordered, use ondansetron first, Recovery (Recovery-Hospital Unit) ondansetron (Zofran) tablet 4 mg 4 mg, Oral, EVERY 8 HOURS PRN, Starting on Thu03/05/22 at 2050, Until Thu03/07/22 at 1247, Nausea, Vomiting, If multiple antiemetics are ordered, use ondansetron first. PO Preferred. If patient unable to take PO, may give IV if ordered. May repeat times one in 45 minutes if ineffective., Recovery (Recovery-Hospital Unit), Routine oxyCODONE (Roxicodone) (1 mg/mL) oral liquid 5 mg 5 mg, Oral, EVERY 4 HOURS PRN, Starting on Thu03/05/22 at 1848, Until Thu03/07/22 at 1247, Pain, Moderate pain 4-10, Routine Given 03/05/2022 6:56 PM EDT 5 mg sodium chloride 0.9 % (flush) (BD PosiFlush Normal Saline 0.9) flush 5 mL 5 mL, Intravenous, 2 TIMES DAILY, First dose on Thu03/05/22 at 2145, Until Discontinued, Recovery (Recovery[facility]Hospital Unit), Routine Given 03/07/2022 8:24 AM EDT 5 mLs Given 03/06/2022 8:56 AM EDT 5 mLs Given 03/05/2022 10:22 PM EDT 5 mLs documented in this encounter Active and Recently Administered Medications Times are shown in EDT. Scheduled Medication Order 03/05/2022 03/06/2022 03/07/2022 acetaminophen (Tylenol) (32.02 mg/mL) oral liquid 650 mg 650 mg, Oral, EVERY 6 HOURS SCHEDULED, First dose on Thu03/05/22 at 1915, Until Discontinued, Maximum dose of acetaminophen is 4000 mg from all sources in 24 hours. When ordered for pain, acetaminophen should be given even when other ordered pain medications are indicated. , Routine 2221 (Given - Provider: Alyssa Perales RN) 0403 (Given - Provider: Pretty Hampton RN)1018 (Given - Provider: Olga Ocampo RN)1702 (Given - Provider: Olga Ocampo RN)2239 (Given - Provider: Tamanna Villalobos LPN) 0503 (Given - Provider: Tamanna Villalobos LPN)1000 (Given - Provider: Olga Ocampo RN) acetaminophen (Tylenol) tablet 975 mg (COMPLETED) 975 mg, Oral, ONCE, 1 dose, On Thu03/05/22 at 1245, Maximum dose of acetaminophen is 4000 mg from all sources in 24 hours. When ordered for pain, acetaminophen should be given even when other ordered pain medications are indicated. , Day of Surgery (Day of Procedure), Routine 1246 (Given - Provider: Alicia Chow RN) carvediloL (Coreg) tablet 6.25 mg 6.25 mg, Oral, 2 TIMES DAILY WITH MEALS, First dose on Radha 03/06/22 at 0800, Until Discontinued, Hold for SBP < 90 or HR < 60, Routine 0855 (Given - Provider: Olga Ocampo RN)1702 (Given - Provider: Olga Ocampo RN) 0824 (Given - Provider: Olga Ocampo RN) enoxaparin (Lovenox) (40 mg/0.4 mL) subcutaneous injection 40 mg (CANCELED) 40 mg, Subcutaneous, NIGHTLY, First dose on Thu03/05/22 at 2145, Until Discontinued, Routine 2222 (Given - Provider: Alyssa Perales RN) furosemide (Lasix) tablet 40 mg 40 mg, Oral, DAILY, First dose (after last reorder) on Thu03/07/22 at 0900, Until Discontinued, Routine 0824 (Not Given - Provider: Olga Ocampo RN - Reason: Patient/family refused - Comment: wants to take when she gets home) gabapentin (Neurontin) capsule 300 mg 300 mg, Oral, 2 TIMES DAILY, First dose on Thu03/05/22 at 2145, Until Discontinued, Routine 2222 (Given - Provider: Alyssa Perales RN) 0856 (Given - Provider: Olga Ocampo RN)2239 (Given - Provider: Tamanna Villalobos LPN - Comment: none in omnicell) 0824 (Given - Provider: Olga Ocampo RN) heparin (porcine) (5,000 units/1 mL) subcutaneous injection 5,000 Units (COMPLETED) 5,000 Units, Subcutaneous, ONCE, 1 dose, On Thu03/05/22 at 1245, Day of Surgery (Day of Procedure), Routine 1246 (Given - Provider: Alicia Chow RN) heparin (porcine) (5,000 units/1 mL) subcutaneous injection 5,000 Units 5,000 Units, Subcutaneous, EVERY 8 HOURS SCHEDULED, First dose on Radha 03/06/22 at 2200, Until Discontinued, Routine 2239 (Given - Provider: Tamanna Villalobos LPN) 0618 (Given - Provider: Tamanna Villalobos LPN) lactated Ringers 1,000 mL IV bolus (COMPLETED) Intravenous, ONCE, 1 dose, On Radha 03/06/22 at 0500 0410 (New Bag - Provider: Pretty Hampton RN) magnesium sulfate 2 g in sterile water 50 mL infusion (COMPLETED) 2 g, Intravenous, ONCE, 1 dose, On Radha 03/06/22 at 1430, Administer over 120 Minutes 1535 (New Bag - Provider: Olga Ocampo RN)1735 (Stopped - Provider: Olga Ocampo RN) sodium chloride 0.9 % (flush) (BD PosiFlush Normal Saline 0.9) flush 5 mL 5 mL, Intravenous, 2 TIMES DAILY, First dose on Thu03/05/22 at 2145, Until Discontinued, Recovery (Recovery-Hospital Unit), Routine 2222 (Given - Provider: Alyssa Perales RN) 0856 (Given - Provider: Olga Ocampo, CONNIE)2100 (Not Given - Provider: Tamanna Villalobos LPN - Reason: Contraindicated - Comment: IV running) 0824 (Given - Provider: Olga Ocampo, CONNIE) spironolactone (Aldactone) tablet 25 mg 25 mg, Oral, DAILY, First dose on Thu03/07/22 at 0900, Until Discontinued, DO NOT SPLIT, CRUSH OR OPEN, Routine 0824 (Not Given - Provider: Olga Ocampo RN - Reason: Patient/family refused - Comment: wants to take when she gets home) Continuous Medication Order 03/05/2022 03/06/2022 03/07/2022 lactated ringers infusion (CANCELED) 1,000 mL, at 100 mL/hr, Intravenous, CONTINUOUS, Starting on Thu03/05/22 at 1915, Until Radha 03/06/22 at 0652, Recovery (Recovery-Hospital Unit) 1849 (New Bag - Provider: Lorrie Slater, CONNIE) lactated ringers infusion 50 mL/hr, Intravenous, CONTINUOUS, Starting on Radha 03/06/22 at 0745, Until Thu03/07/22 at 1247, Recovery (Recovery[facility]Hospital Unit) 0856 (New Bag - Provider: Olga Ocampo, RN)2258 (New Bag - Provider: Tamanna Villalobos LPN) 1247 (Due: Stopped) PRN Medication Order 03/05/2022 03/06/2022 03/07/2022 BUpivacaine (pf) (Marcaine) (2.5 mg/mL) 0.25% injection (CANCELED) ONCE PRN, Starting on Thu03/05/22 at 1657, Until Thu03/07/22 at 1247, Intra-Operative (Intra-Procedure), Routine 1656 (Given - Provider: Prakash Mendez)175 (Given - Provider: Prakash Mendez) ketorolac (Toradol) (30 mg/mL) injection 15 mg (CANCELED) 15 mg, Intravenous, EVERY 6 HOURS PRN, 8 doses, Starting on Thu03/05/22 at 1848, Until Radha 03/06/22 at 0621, Pain, Mild Pain 1-3, If both Acetaminophen and Ketorolac are ordered, start with Acetaminophen. If pain is not relieved within 30 minutes, give Ketorolac., Routine 1912 (Given - Provider: Lorrie Slater, CONNIE) lidocaine (Xylocaine) 1% (10 mg/mL) injection 3 mg 3 mg (0.3 mL), Subcutaneous, ONCE PRN, 1 dose, Starting on Thu03/05/22 at 2050, Until Thu03/07/22 at 1247, for discomfort with PIV insertion, Recovery (Recovery-Hospital Unit), Routine ondansetron (pf) (Zofran) (2 mg/mL) injection 4 mg(Linked Group 1) 4 mg, Intravenous, EVERY 8 HOURS PRN, Starting on Thu03/05/22 at 2050, Until Thu03/07/22 at 1247, Nausea, May repeat times one in 30 minutes if ineffective. If multiple antiemetics are ordered, use ondansetron first, Recovery (Recovery-Hospital Unit) ondansetron (Zofran) tablet 4 mg(Linked Group 1) 4 mg, Oral, EVERY 8 HOURS PRN, Starting on Thu03/05/22 at 2050, Until Thu03/07/22 at 1247, Nausea, Vomiting, If multiple antiemetics are ordered, use ondansetron first. PO Preferred. If patient unable to take PO, may give IV if ordered. May repeat times one in 45 minutes if ineffective., Recovery (Recovery[facility]Hospital Unit), Routine oxyCODONE (Roxicodone) (1 mg/mL) oral liquid 5 mg 5 mg, Oral, EVERY 4 HOURS PRN, Starting on Thu03/05/22 at 1848, Until Thu03/07/22 at 1247, Pain, Moderate pain 4-10, Routine 1856 (Given - Provider: Lorrie Slater RN) sodium chloride 0.9 % (flush) (BD PosiFlush Normal Saline 0.9) flush 5-20 mL 5-20 mL, Intravenous, EVERY 1 MIN PRN, Starting on Thu03/05/22 at 2050, Until Thu03/07/22 at 1247, flush, Flush pertains to all indwelling lines. Flush per protocol found in the job aid using the link provided on this medication record., Recovery (Recovery[facility]ospital Unit), Routine Linked Groups Order Group 1: ondansetron (Zofran) tablet 4 mgJump to med 4 mg, Oral, EVERY 8 HOURS PRN, Starting on Thu03/05/22 at 2050, Until Thu03/07/22 at 1247, Nausea, Vomiting, If multiple antiemetics are ordered, use ondansetron first. PO Preferred. If patient unable to take PO, may give IV if ordered. May repeat times one in 45 minutes if ineffective., Recovery ([facility]ospital Unit), Routine Or ondansetron (pf) (Zofran) (2 mg/mL) injection 4 mgJump to med 4 mg, Intravenous, EVERY 8 HOURS PRN, Starting on Thu03/05/22 at 2050, Until Thu03/07/22 at 1247, Nausea, May repeat times one in 30 minutes if ineffective. If multiple antiemetics are ordered, use ondansetron first, Recovery (Recovery-Hospital Unit) documented in this encounter Care Teams Interior Assemblies Installer Relationship Specialty Start Date End Date Ana Her MD Geovany [address] [facility] [address] [place] [address] PCP - General 07/29/13 documented as of this encounter
--- OUTSIDE RECORDS SUMMARY | 2023-11-18 15:07 | XMS_ITS | Data Portability ---
Author Organization [place] [facility], [facility] Address [facility] [address] Care Team Providers Care Meter Changes Records Clerk Name Role Phone GABINODC Orthotics Prosthetics Technician [facility] Orthopedic Surgeon [facility] Sleep Medicine [facility] Catalyst Impregnator Assessment Encounter Date Assessment Date Assessment LastModified by Organization Details LastModified Time 08/12/2023 08/12/2023 Patient presente d to office today for their Medicare Annual Wellness Visit. Education was provided on healthy nutrition, including a diet rich in fruits and vegetables, minimizing simple carbohydrates, salt, and saturated fats. Encouraged regular cardiovascular exercise such as walking at least 30 minutes daily, 5 times per week. Emphasized preventive health measures and educated pt on fall prevention and community-based lifestyle interventions to help reduce health risks and promote healthy living. Personalized prevention plan (PPP) completed and reviewed with patient. Patient was given written copy of PPP at conclusion of visit, detailing prior screening and 5-10 year future screening plan including: screenings for breast cancer and colorectal cancer, immunizations, and other age appropriate screenings consistent with USPSTF and ACIP guidelines [email or web address] Not available 08/12/2023 08:39:36 10/14/2023 10/14/2023 Patient presents for pre-op evaluation. The patient is a suitable candidate for the planned procedure. Their chronic medical problems are optimized Further preoperative evaluation is not needed. BMP and CBC are drawn today. The total time devoted to today's encounter, including both the ffwy-zv-kwjy time with the patient and/or family/caregiver and xai-fwth-rt-face time I personally spent is 30 minutes. Not available 10/14/2023 11:57:30 Plan of Treatment Reminders Order Date Submit Date Provider Last Modified By Organization Details Last Modified Time Details Appointments Acute 10 2023 01:17P Allan [place] Not available Not available Not available Follow Up 20 2023 08:40A Allan Her Not available Not available Not available Lab CMP, serum or plasma - Right Ac 1 sst 1 lav [address] Laboratory (Registration ), [address] [place] [address] [place], [address], 08/06/2023 10:23:07 HbA1c (hemoglob in A1c), blood - Right Ac 1 sst 1 lav 2023 024 [facility] (Registration ), [address] [place] [address] [place], [address], 08/12/2023 08:26:19 CBC - Right Ac 1 sst 1 lav [address] Laboratory (Registration ), [address] [place] [address] [place], [address], 08/06/2023 10:23:07 CBC 2023 024 [facility] (Registration ), [address] [place] [address] [place], [address], 10/14/2023 15:11:07 BMP, serum or plasma 2023 024 [facility] (Registration ), [address] [place] [address] [place], [address], 10/14/2023 17:41:37 Referral audiologi referral - [place] trouble hearing, has postponed evaluatio n due to perceived inability to afford hearing aides. 2023 024 [email or web address] [facility], [address] [place], [address], 11/13/2023 10:09:39 Procedures None recorded. Surgeries None recorded. Imaging MAMMO, screening , digital, bilateral - will need ONE HOUR- personal history of left sided breast cancer/meño mpectomy. 2023 024 [facility] [address], [place], [address], 09/01/2023 15:24:03 DEXA 2023 024 [facility], [address], [place], [address], 09/01/2023 15:25:06 electroca rdiogram [email or web address], [address], [place], [address], 10/14/2023 11:56:21 Medication Orders gabapenti n 300 mg capsule 2023 024 [facility], [address] [place] [address], [address], 08/12/2023 12:11:40 atorvasta tin 40 mg tablet [address], [address] [place] [address], [address], 08/12/2023 11:40:43 allopurin ol 100 mg tablet 2023 024 [facility], [address] [place] [address], [address], 08/12/2023 11:51:18 colestipo l 1 gram tablet [address], [address] [place] [address], [address], [address], 08/12/2023 11:40:43 Victoza 3-Anant 0.6 mg/0.1 mL (18 mg/3 mL) subcutane ous pen injector 2023 024 [facility], [address] [place] [address], [facility], [place], [address], 10/09/2023 14:33:06 furosemid e 40 mg tablet 2023 024 [facility], [address] [place] [address] [place], [address], 08/12/2023 11:51:01 Xarelto 20 mg tablet [email or web address], [address] [place] [address], [address], [address], 11/03/2023 17:06:37 lisinopri l 10 mg tablet 2023 024 [facility], [address] [place] [address], [facility] [place], [address], 11/03/2023 17:06:07 carvedilo l 6.25 mg tablet [email or web address] [place] [address], [address] [place] [address], [facility], [place], [address], 08/12/2023 11:40:43 spironola ctone 25 mg tablet 2023 024 [facility], [address] [place] [address] [place], [address], 11/18/2023 14:00:02 levothyro xine 100 mcg tablet 2023 024 [facility], [address] [place] [address], [facility], [place], [address], 08/12/2023 11:50:56 tramadol 50 mg tablet 2023 024 [facility], [address] [place], [address], 10/14/2023 11:52:49 Patient TargetsNo targets recorded. Patient Instructions Encounter Date Encounter Id Patient Instructions Last Modified By Organization Details Last Modified Time 08/12/2023 [id number] Start VICTOZA 0. 6 mg daily for one month, if tolerating that dose, can increase to 1.2 mg dose after a month. Call to make an appointment with RAMY ROBERTS our diabetic nurse when you get the medication, to learn how to use it. Not available 08/12/2023 09:30:08 Discussed and explained advance directives such as standard forms to the {{patient caregiv er patient and caregiver}}. Face to face discussion lasted for a duration of ___ minutes. [email or web address] Not available 08/12/2023 08:39:36 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 Physical Therapist Referral for Left side sciatica back and leg pain, poor balance. Unable to swim regularly as the pool is closed. Would benefit from senior program. Referring Physician: Ana Her Family Medicine, Encounter Date: 07/20/2023 General Intern Referral for Dec reased hearing Increasing trouble hearing, has postponed evaluation due to perceived inability to afford hearing aides. Referring Physician: Ana Her Family Medicine, Encounter Date: 08/12/2023 Orthotics Prosthetics Technician Referral for Bi cuspid aortic valve She has been followed by cardiology at [facility] (she moved to [place] from the [facility] few years ago) and would like to establish care with a local tissue rewinder. Her most recent July 2023 cardiology note summarizes her cardiac history of atrial fibrillation and bicuspid valve with . 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 She was to have follow up ECHO in [place]. Xarelto was to be on hold until then. Referring Physician: Ana Her Family Medicine, Encounter Date: 11/18/2023 Results Created Date Observation Date Name Description Value Unit Range Abnormal Flag LastModifiedBy Organization Detail LastModifiedTime 08/05/19 24 08/05/2023 COMPL ETE BLOOD COUNT NO DIFF WBC 8.45 10_3/ uL 4.4-10 .8 normal Not Available [address] [place], [address] 08/05/2023 15:29:29 08/05/19 24 08/05/2023 COMPL ETE BLOOD COUNT NO DIFF RBC 3.42 10_6/ uL 3.93-5 .22 low Not Available [address] [place], [address] 08/05/2023 15:29:29 08/05/19 24 08/05/2023 COMPL ETE BLOOD COUNT NO DIFF HGB 11.7 g/dL 11.2-1 5.7 normal Not Available [address] [place], [address] 08/05/2023 15:29:29 08/05/19 24 08/05/2023 COMPL ETE BLOOD COUNT NO DIFF HCT 35.5 % 36.0-4 6.0 low Not Available [address] [place], [address] 08/05/2023 15:29:29 08/05/19 24 08/05/2023 COMPL ETE BLOOD COUNT NO DIFF MCV 104 fL 80-95 high Not Available [address] [place], [address] 08/05/2023 15:29:29 08/05/19 24 08/05/2023 COMPL ETE BLOOD COUNT NO DIFF MCH 34.2 pg 27.0-3 3.0 high Not Available [address] [place], [address] 08/05/2023 15:29:29 08/05/19 24 08/05/2023 COMPL ETE BLOOD COUNT NO DIFF MCHC 33.0 % 32.0-3 6.0 normal Not Available [address] [place], [address] 08/05/2023 15:29:29 08/05/19 24 08/05/2023 COMPL ETE BLOOD COUNT NO DIFF RDW 13.6 % 11.7-1 4.6 normal Not Available [address] [place], [address] 08/05/2023 15:29:29 08/05/19 24 08/05/2023 COMPL ETE BLOOD COUNT NO DIFF platelet count 144 10_3/ uL 130-40 0 normal Not Available [address] [place], [address] 08/05/2023 15:29:29 08/05/19 24 08/05/2023 COMPL ETE BLOOD COUNT NO DIFF MPV 11.6 fL 8.0-11 .0 high Not Available [address] [place], [address] 08/05/2023 15:29:29 08/05/19 24 08/05/2023 COMPR EHENS NADEEM METAB OLIC PANEL calcium 8.8 mg/dL 8.5-10 .1 normal Not Available [address] [place], [address] 08/05/2023 15:44:29 08/05/19 24 08/05/2023 COMPR EHENS NADEEM METAB OLIC PANEL glucose 97 mg/dL 74-106 normal Not Available [address] [place], [address] 08/05/2023 15:44:29 08/05/19 24 08/05/2023 COMPR EHENS NADEEM METAB OLIC PANEL BUN 27 mg/dL 7-18 high Not Available [address] [place], [address] 08/05/2023 15:44:29 08/05/19 24 08/05/2023 COMPR EHENS NADEEM METAB OLIC PANEL creatinine 1.1 mg/dL 0.55-1 .02 high Not Available [address] [place], [address] 08/05/2023 15:44:29 08/05/19 24 08/05/2023 COMPR EHENS NADEEM METAB OLIC PANEL estimated GFR 51.75 mL/min /1.73m 2 Not Available [address] [place], [address] 08/05/2023 15:44:29 08/05/19 24 08/05/2023 COMPR EHENS NADEEM METAB OLIC PANEL total protein 6.5 g/dL 6.4-8. 2 normal Not Available [address] [place], [address] 08/05/2023 15:44:29 08/05/19 24 08/05/2023 COMPR EHENS NADEEM METAB OLIC PANEL albumin 4.0 g/dL 3.4-5. 0 normal Not Available [address] [place], [address] 08/05/2023 15:44:29 08/05/19 24 08/05/2023 COMPR EHENS NADEEM METAB OLIC PANEL bilirubin, total 1.0 mg/dL 0.2-1. 0 normal Not Available [address] [place], [address] 08/05/2023 15:44:29 08/05/19 24 08/05/2023 COMPR EHENS NADEEM METAB OLIC PANEL alk phos 74 U/L 46-116 normal Not Available [address] [place], [address] 08/05/2023 15:44:29 08/05/19 24 08/05/2023 COMPR EHENS NADEEM METAB OLIC PANEL sodium 143 mmol/ L 136-14 5 normal Not Available [address] [place], [address] 08/05/2023 15:44:29 08/05/19 24 08/05/2023 COMPR EHENS NADEEM METAB OLIC PANEL potassium 4.7 mmol/ L 3.5-5. 1 normal Not Available [address] [place], [address] 08/05/2023 15:44:29 08/05/19 24 08/05/2023 COMPR EHENS NADEEM METAB OLIC PANEL chloride 106 mmol/ L 98-107 normal Not Available [address] [place], [address] 08/05/2023 15:44:29 08/05/19 24 08/05/2023 COMPR EHENS NADEEM METAB OLIC PANEL CO2 28.1 mmol/ L 21.0-3 2.0 normal Not Available [address] [place], [address] 08/05/2023 15:44:29 08/05/19 24 08/05/2023 COMPR EHENS NADEEM METAB OLIC PANEL anion gap 8.9 mmol/ L 3-11 normal Not Available [address] [place], [address] 08/05/2023 15:44:29 08/05/19 24 08/05/2023 COMPR EHENS NADEEM METAB OLIC PANEL AST 20 U/L 15-37 normal Not Available [address] [place], [address] 08/05/2023 15:44:29 08/05/19 24 08/05/2023 COMPR EHENS NADEEM METAB OLIC PANEL ALT 22 U/L 14-59 normal Not Available [address] [place], [address] 08/05/2023 15:44:29 08/05/19 24 08/05/2023 HEMOG LOBIN A1C hemoglobin A1C 5.5 % <5.7 Not Available [facility] (Registration ) [address] [place] [address] [place], [address], 08/05/2023 16:03:35 10/14/19 24 10/14/2023 COMPL ETE BLOOD COUNT NO DIFF WBC 8.22 10_3/ uL 4.4-10 .8 normal Not Available [address] [place], [address] 10/14/2023 15:11:07 10/14/19 24 10/14/2023 COMPL ETE BLOOD COUNT NO DIFF RBC 3.22 10_6/ uL 3.93-5 .22 low Not Available [address] [place], [address] 10/14/2023 15:11:07 10/14/19 24 10/14/2023 COMPL ETE BLOOD COUNT NO DIFF HGB 10.9 g/dL 11.2-1 5.7 low Not Available [address] [place], [address] 10/14/2023 15:11:07 10/14/19 24 10/14/2023 COMPL ETE BLOOD COUNT NO DIFF HCT 32.5 % 36.0-4 6.0 low Not Available [address] [place], [address] 10/14/2023 15:11:07 10/14/19 24 10/14/2023 COMPL ETE BLOOD COUNT NO DIFF MCV 101 fL 80-95 high Not Available [address] [place], [address] 10/14/2023 15:11:07 10/14/19 24 10/14/2023 COMPL ETE BLOOD COUNT NO DIFF MCH 33.9 pg 27.0-3 3.0 high Not Available [address] [place], [address] 10/14/2023 15:11:07 10/14/19 24 10/14/2023 COMPL ETE BLOOD COUNT NO DIFF MCHC 33.5 % 32.0-3 6.0 normal Not Available [address] [place], [address] 10/14/2023 15:11:07 10/14/19 24 10/14/2023 COMPL ETE BLOOD COUNT NO DIFF RDW 13.9 % 11.7-1 4.6 normal Not Available [address] [place], [address] 10/14/2023 15:11:07 10/14/19 24 10/14/2023 COMPL ETE BLOOD COUNT NO DIFF platelet count 133 10_3/ uL 130-40 0 normal Not Available [address] [place], [address] 10/14/2023 15:11:07 10/14/19 24 10/14/2023 COMPL ETE BLOOD COUNT NO DIFF MPV 12.8 fL 8.0-11 .0 high Not Available [address] [place], [address] 10/14/2023 15:11:07 10/14/19 24 10/14/2023 BASIC METAB OLIC PANEL calcium 9.3 mg/dL 8.5-10 .1 normal Not Available [facility] (Registration ) [address] [place] [address] [place], [address], 10/14/2023 15:19:07 10/14/19 24 10/14/2023 BASIC METAB OLIC PANEL glucose 105 mg/dL 74-106 normal Not Available [facility] (Registration ) [address] [place] [address] [place], [address], 10/14/2023 15:19:07 10/14/19 24 10/14/2023 BASIC METAB OLIC PANEL BUN 49 mg/dL 7-18 high Not Available [facility] (Registration ) [address] [place] [address] [place], [address], 10/14/2023 15:19:07 10/14/19 24 10/14/2023 BASIC METAB OLIC PANEL creatinine 1.9 mg/dL 0.55-1 .02 high Not Available [facility] (Registration ) [address] [place] [address] [place], [address], 10/14/2023 15:19:07 10/14/19 24 10/14/2023 BASIC METAB OLIC PANEL estimated GFR 26.69 mL/min /1.73m 2 Not Available [facility] (Registration ) [address] [place] [address] [place], [address], 10/14/2023 15:19:07 10/14/19 24 10/14/2023 BASIC METAB OLIC PANEL sodium 137 mmol/ L 136-14 5 normal Not Available [facility] (Registration ) [address] [place] [address] [place], [address], 10/14/2023 15:19:07 10/14/19 24 10/14/2023 BASIC METAB OLIC PANEL potassium 5.1 mmol/ L 3.5-5. 1 normal Not Available [facility] (Registration ) [address] [place] [address] [place], [address], 10/14/2023 15:19:07 10/14/19 24 10/14/2023 BASIC METAB OLIC PANEL chloride 104 mmol/ L 98-107 normal Not Available [facility] (Registration ) [address] [place] [address] [place], [address], 10/14/2023 15:19:07 10/14/19 24 10/14/2023 BASIC METAB OLIC PANEL CO2 20.3 mmol/ L 21.0-3 2.0 low Not Available [facility] (Registration ) [address] [place] [address] [place], [address], 10/14/2023 15:19:07 10/14/19 24 10/14/2023 BASIC METAB OLIC PANEL anion gap 12.7 mmol/ L 3-11 high Not Available [facility] (Registration ) [address] [place] [address] [place], [address], 10/14/2023 15:19:07 08/24/19 24 08/24/2023 MAMMO , scree jama, digit al, bilat eral Patien t Name: Rema Olson Unit #: [id number] Loc: DI [facility] er: Ana Her M.D. Accoun t #: [id number] Status : REG CLI Primar y Care Provid er: Ana Her M.D. Date of Exam: Sex: F Admiss ion Date: : 1945 Age: 78 Exam(s ) MG MAMMO SCREEN ING 60 MIN DUR EXAM: MG MAMMO SCREEN ING 60 MIN DUR CLINIC AL HISTOR Y: SCREEN ING,Z1 2.31,P ERSONA L H/O BREAST CA. TECHNI QUE: Cranio caudal and mediol ateral obliqu e Full Field Digita l Mammog fozia views of the bilate ral breast with Comput er Aided Diagno sis follow ed by Haseeb castellanos s. COMPAR CARLOS ALBERTO: Compar carlos alberto is made with prior examin ations . FINDIN GS: Mammog fozia/ Tomossuzie castellanos s: Masses /Archi tectur al Distor tion: None seen. Microc alcifi ctions : No suspic ious pleomo rphic- type are seen. Skin Thicke jama/N ipple Retrac tion: None. IMPRES NISHI: 1. No eviden ce of malign huyen is noted. 2. Unless there is more urgent need, follow -up screen ing mammog fozia is recomm ended, as per [facility] y guidel candido. 3. The findin gs were discus sed with the patien t on the date of the examin ation. BI-RAD S Catego ry 1 - Negati ve Breast Densit y - Catego ry B - Scatte red areas of fibrog landul ar densit y Breast densit y Catego ry C or D implie s that the patien t has dense breast tissue . Dense breast tissue can make it harder to find cancer on a mammog rosa. Dense breast tissue is also associ ated with an increa sed risk of breast cancer . This inform ation about the result of the mammog rosa report was provid ed to the patien t to raise their awaren ess. Use this report when you speak with the patien t about their risks for breast cancer , which includ es their family histor y. At that time, you may recomm end additi onal screen ing tests (Ultra sound or MRI) as these tests may add signif icant inform ation. A negati ve radiog raphic report should not delay biopsy if a domina nt or clinic ally suspic ious mass is presen t. Up to ten percen t of cancer s are not identi fied on mammog fozia. A negati ve report may reinfo rce clinic al impres nishi. Adenos is and dense breast s may obscur e an underl donovan neopla sm. False positi ve report s averag e 6 to 10%. Patien t will receiv e a letter notify ing them of these result s. Ordere d By: Ana Her M.D. CC: ------ ------ ------ ------ ------ ------ ------ ------ ------ ------ ------ ------ - Dictat ed By: Brigido Payan M.D. 8 1127 Transc ribed By: Brigido Payan 1127 This is privil eged, confid ential inform ation intend ed only for the provid er named. Any use or distri bution by any person other than this provid er is strict ly prohib ited. If you receiv e this report in error, please notify us immedi polo at and return the origin al report to us at the addres s above. Thank- you. [email or web address] [facility] [address], [place], [address], 09/01/2023 15:24:03 08/24/19 24 08/24/2023 DEXA Patien t Name: Rema Olson Unit #: [id number] Loc: DI Orderi ng Provid er: Ana Her M.D. Accoun t #: [id number] Status : REG CLI Primar y Care Provid er: Ana Her M.D. Date of Exam: Sex: F Admiss ion Date: : 1945 Age: 78 Exam(s ) XR DEXA BONE DENSIT Y W/WO VERONICA EXAM: XR DEXA BONE DENSIT Y W/WO VERONICA CLINIC AL HISTOR Y: OSTEOP ENIA,M 85.88 TECHNI QUE: COMPAR CARLOS ALBERTO: DX DEXA BONE DENSIT Y WITH VERONICA from 2016 FINDIN GS: Latera l Spine Image: There are stable compre ssion deform ities at L1 and L3. Left hip: Total T-Scor e: -0.9. This compar es to -1.3 on the prior examin ation. Total Z-Scor e: 1.1 T- and Z-scor es: Within normal limits . Lumbar Spine: Total T-Scor e: 0.2 this compar es to 1.0 on the prior examin ation. Total Z-Scor e: 2.9 T- and Z-scor es: Within normal limits . There is osteop orosis seen in the right forear m with a total T-scor e of -3.1. IMPRES NISHI: Osteop orosis in the right forear m. Ordere d By: Ana Her M.D. CC: ------ ------ ------ ------ ------ ------ ------ ------ ------ ------ ------ ------ - Dictat ed By: Brigido Payan M.D. 1316 1315 Transc ribed By: Brigido Payan 1316 This is privil eged, confid ential inform ation intend ed only for the provid er named. Any use or distri bution by any person other than this provid er is strict ly prohib ited. If you receiv e this report in error, please notify us immedi zayly at and return the origin al report to us at the addres s above. Thank- you. [email or web address] [facility] [address], [place], [address], 09/01/2023 15:26:04 10/14/19 24 10/14/2023 elect rocar diogr am No observ ation record ed. [facility] [address], [place], [address], 10/14/2023 11:56:20 10/14/19 24 elect rocashwin diogr am No observ ation record ed. Not Available 10/14/2023 10:55:07 11/04/19 24 10/14/2023 rhyth m strip , EKG* No observ ation record ed. [email or web address] Not Available 11/06/2023 10:18:08 Result Notes None recorded. Problems Name Status Onset Date Resolution Date Notes Provider Name and Address Organization Details Recorded Time Hypothyroidis m Active 1959 EVIE shaw [facility] 4 10:29:59 Essential hypertension Active 1959 SHRUTHI Marcial [facility] 4 10:29:36 Hyperlipidemi a Active 1959 on statin MD [address], [place], [address] , [facility] 4 20:35:18 Spinal stenosis of lumbar region Active 2012 s/p lumbar foraminotomy L4 MD [address], [place], [address] , [facility] 4 20:36:41 Sleep apnea Active 2012 on CPAP MD [address], [place], [address] , [facility] 4 20:39:31 Gastroesophag eal reflux disease without esophagitis Completed 195908/12/2023 Removal Reason: resolved with surgical repair of HH MD [address], [place], [address] , [facility] 4 10:41:24 Family history of malignant neoplasm of digestive organ Active [address], [place], [address] , [facility] 4 20:37:03 Paresthesia Completed 201412/01/2014 11/27/2014 - Comments only - Ana Her MD - check B12 and folate Problem Code: R20.2; Problem Code Type: ICD-10; Not Available [facility] 3 05:53:48 Adult health examination Active [address], [place], [address] , [facility] 4 20:33:34 Pre-surgery evaluation Completed 201510/03/2015 09/03/2015 - Comments only - Ana Her MD - Her chronic medical problems are all stable. She has no chest pain, and no symptoms of significant aortic stenosis or heart failure. She is already on chronic betablockers which should be continued in the cinthia operative time. She is stable for stated surgery. Problem Code: Z01.818; Problem Code Type: ICD-10; Not Available Replaced by [facility] 3 05:53:48 Localized edema Completed 201501/29/2016 12/13/2015 - Comments only - Ana Her MD - and some on left as well, will check BMP. 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 Referral is made to physical therapy. She will continue on the increased dose of Naprosyn and gabapentin, and once the pain improves we will start to wean back the gabapentin to 300 mg 3 times daily She has enough Ultram from her discharge for now. Problem Code: M79.605; Problem Code Type: ICD-10; EVIE shaw, [facility] 4 10:32:00 Epidermoid cyst of skin Completed 201611/14/2016 10/16/2016 - Comments only - Ana Her MD - Inflamed, I suggested hot packing, if not resolving we can refer to Dr. Vieyra for removal. Problem Code: L72.3; Problem Code Type: ICD-10; Not Available Replaced by [facility] 3 05:53:49 Chronic ulcer of foot Completed 201601/16/2017 12/17/2016 - Comments only - Ana Her MD - Due to injury. This does appear to have some granulation tissue and to be healing. She is given a prescription for Keflex to take only if erythema seems to be extending. Problem Code: L97.509; Problem Code Type: ICD-10; Not Available Replaced by [facility] 3 05:53:49 Diarrhea Completed 201602/10/2017 02/04/2017 - Comments only - Ana Her MD - Persistent over several months, we will collect stool for C. difficile, Giardia, culture, and lactoferrin Problem Code: R19.7; Problem Code Type: ICD-10; ANA HER MD [address], [place], [address] , [facility], [facility] 4 21:03:03 Polyp of cervix Active 2016 EVIE shaw, [facility]. 4 10:32:21 Primary malignant neoplasm of female breast Active 2016 invasive mucinous intermediate grade, s/p partial mastectomy, on Anastrazole. 6 mm PT1NO E2P2 poistive, HER2 negative MD [address], [place], [address] , [facility], [facility] 4 20:38:49 Pain in left lower limb Active 2016 EVIE shaw, [facility], [facility]. 4 10:32:00 Pain in thoracic spine Active 2016 EVIE shaw, [facility], [facility]. 4 10:32:06 Spasm Active 2017 EVIE shaw [facility]. 4 10:33:28 Abdominal distension, gaseous Completed 201703/08/2018 Problem Code: R14.0; Problem Code Type: ICD-10; Not Available Replaced by [facility] 3 05:53:50 Cellulitis of toe Completed 201808/12/2018 Problem Code: L03.039; Problem Code Type: ICD-10; Not Available Replaced by [facility] 3 05:53:51 Other idiopathic peripheral neuropathy NOS Active 2018 Danica shaw, [facility] 4 14:36:02 Tachycardia Completed 201811/25/2018 Problem Code: R00.0; Problem Code Type: ICD-10; Not Available Replaced by [facility] 3 05:53:51 Pre-surgery evaluation Completed 201811/25/2018 Problem Code: Z01.818; Problem Code Type: ICD-10; Not Available Replaced by [facility] 3 05:53:51 Iron deficiency anemia Active 2019 on oral iron- elevated MCV: normal B12 2021, normal folate [address], [place], [address] , [facility] 4 20:54:37 Lumbago with sciatica Completed 201903/16/2020 02/24/2020 - Comments only - Vy Pinon [employer] - Likely aggravated by 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 Referral made to Ricardo ESTRELLA. Reviewed red flags requiring emergency care. Problem Code: M54.40; Problem Code Type: ICD-10; Not Available Replaced by [facility] 3 05:53:52 Right side sciatica Active 2019 EVIE shaw [facility] 4 10:33:09 Left side sciatica Active [address], [place], [address] , [facility] 4 17:20:20 Diaphragmatic hernia Completed 202108/11/2023 Removal Reason: s/p repair MD [address], [place], [address] , [facility] 4 20:50:39 History of SARS-CoV-2 Completed 202104/04/2022 03/21/2022 - Comments only - Ana Her MD - testing is negative today in the office. Still some fatigue but otherwise recovering. Did get MAB. Already had covid bivalent booster prior to illness Problem Code: Z86.16; Problem Code Type: ICD-10; Not Available [facility] 3 05:53:53 Diarrhea Completed 202104/18/2022 Problem Code: R19.7; Problem Code Type: ICD-10; MD [address], [place], [address] , [facility] 4 21:03:02 Screening mammography Completed 202208/11/2023 ANA HER MD [address], [place], [address] , [facility] 4 20:36:56 Carpal tunnel syndrome of left wrist Completed 202201/23/2023 Problem Code: G56.02; Problem Code Type: ICD-10; Not Available Replaced by [facility] 4 05:37:46 Diarrhea Active 2022 started colestipol 01/[address], [place], [address] , [facility] 4 21:03:02 Carpal tunnel syndrome of right wrist Completed 201803/19/2020 Problem Code: G56.01; Problem Code Type: ICD-10; Not Available [facility] 3 05:53:55 Pain of left knee joint Completed 202107/30/2022 Problem Code: M25.562; Problem Code Type: ICD-10; Not Available [facility] 3 05:53:55 Hypersomnia Completed 201311/27/2014 Problem Code: 780.54; Problem Code Type: ICD-9; Not Available Replaced by [facility] 3 05:53:56 Screening for disorder Completed 201909/11/2021 Problem Code: Z13.9; Problem Code Type: ICD-10; Not Available Replaced by [facility] 3 05:53:56 Anemia Completed 201903/19/2020 Problem Code: D64.9; Problem Code Type: ICD-10; Not Available Replaced by [facility] 3 05:53:56 Long-term current use of anticoagulant Completed 201709/01/2018 Problem Code: Z79.01; Problem Code Type: ICD-10; Not Available Replaced by [facility] 3 05:53:57 Chronic rhinitis Completed 202108/12/2021 Problem Code: J31.0; Problem Code Type: ICD-10; Not Available Replaced by [facility] 3 05:53:57 Impaired fasting glycemia Completed 201401/28/2023 Not Available Replaced by [facility] 3 05:53:57 Fatigue Completed 201903/19/2020 Problem Code: R53.83; Problem Code Type: ICD-10; Not Available Replaced by [facility] 3 05:53:58 Upper respiratory tract infection caused by Influenza A Completed 201707/02/2017 Problem Code: J09.x2; Problem Code Type: ICD-10; Not Available Replaced by [facility] 3 05:53:59 Diarrhea Completed 201709/01/2018 ANA HER MD [address], [place], [address] [facility]. 4 21:03:02 Acute upper respiratory infection Completed 202108/26/2021 Problem Code: J06.9; Problem Code Type: ICD-10; Not Available Replaced by [facility] 3 05:53:59 Pain in right foot Completed 202207/30/2022 Problem Code: M79.671; Problem Code Type: ICD-10; Not Available Replaced by [facility] 3 05:54:00 Breast composition Completed 201601/28/2023 Not Available Replaced by [facility] 3 05:54:00 Changes in skin texture Completed 202207/30/2022 Problem Code: R23.4; Problem Code Type: ICD-10; Not Available Replaced by [facility] 3 05:54:01 Spasm Completed 201603/23/2017 Problem Code: R25.2; Problem Code Type: ICD-10; EVIE shaw [facility]. 4 10:33:28 Hypertensive disorder Completed 11/27/2014 - Comments only - Ana Her MD - Well controlled, no change in medications Not Available Replaced by [facility] 3 05:54:03 Arthralgia of the ankle and/or foot Completed 201501/30/2016 Problem Code: M25.571; Problem Code Type: ICD-10; Not Available Replaced by [facility] 3 05:54:03 Dyspnea Completed 201903/19/2020 Problem Code: R06.02; Problem Code Type: ICD-10; Danica shaw [facility] 4 14:39:47 Trigger finger of right hand Completed 201803/19/2020 Problem Code: M65.341; Problem Code Type: ICD-10; Not Available Replaced by [facility] 3 05:54:06 Cough Completed 202108/12/2021 Problem Code: R05.1; Problem Code Type: ICD-10; Not Available Replaced by [facility] 3 05:54:06 At risk - finding Completed 201811/11/2018 Problem Code: Z91.89; Problem Code Type: ICD-10; Not Available Replaced by [facility] 3 05:54:06 Cough Completed 201706/15/2017 Problem Code: R05; Problem Code Type: ICD-10; Not Available Replaced by [facility] 3 05:54:07 Preoperative cardiovascula r examination Completed 202112/18/2021 Problem Code: Z01.810; Problem Code Type: ICD-10; Not Available Replaced by [facility] 3 05:54:08 Arterial bruit Completed 202109/11/2021 Not Available Replaced by [facility] 3 05:54:08 Gastroesophag eal reflux disease Completed Not Available Replaced by [facility] 3 05:54:09 Imaging of musculoskelet al system abnormal Completed 201603/23/2017 Problem Code: R93.7; Problem Code Type: ICD-10; Not Available Replaced by [facility] 3 05:54:10 Blood glucose outside reference range Completed 201503/20/2016 Problem Code: R73.09; Problem Code Type: ICD-10; Not Available Replaced by [facility] 3 05:54:10 Abdominal aortic aneurysm Completed 195912/04/2014 Not Available Replaced by [facility] 3 05:54:11 Lung field abnormal Completed 202109/11/2021 Problem Code: R91.8; Problem Code Type: ICD-10; Not Available Replaced by [facility] 3 05:54:11 Ingrowing nail Completed 201503/23/2017 Problem Code: L60.0; Problem Code Type: ICD-10; Not Available Replaced by [facility] 3 05:54:11 Hypokalemia Completed 201504/17/2016 Problem Code: E87.6; Problem Code Type: ICD-10; Not Available Replaced by [facility] 3 05:54:12 Spasm Completed 202201/23/2023 Problem Code: M62.838; Problem Code Type: ICD-10; EVIE shaw, [facility] 4 10:33:28 Aneurysm of ascending aorta Active [address], [place], [address] , [facility] 4 19:24:51 Bicuspid aortic valve Active 2023 severe by ECHO 07/[address], [place], [address] , [facility] 4 19:33:10 Osteopenia Active 2023 EVIE shaw, [facility] 4 10:28:13 Venous stasis Active 2023 EVIE shaw, [facility] 4 10:29:14 Chronic kidney disease Active 2017 Stage 3bA1v eGFR 42-[address], [facility] [address] , [facility] 4 20:49:29 Dyspnea on exertion Active 2018 Danica chadwick shaw, [facility] 4 14:39:44 Hiatal hernia Completed 202108/11/2023 lap repair MD [address], [facility] [address] , [facility] 4 20:51:15 Edema of lower extremity Active [address], [place], [address] , [facility] 4 20:55:49 Atrial fibrillation Active 2016 s/p pulmonoary vein isolation 05/2018, chronic anticoagulati on with Xarelto MD [address], [place], [address] , [facility] 4 09:14:08 Obesity Active [address], [place], [address] , [facility] 4 09:26:22 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 MD [address], [place], [address] , [facility] 4 09:13:49 Swelling of bilateral lower limbs Active 2023 FAY YORK PA-C [address], [place], [address] , [facility] 14:35:13 Problem Notes None recorded. Procedures Surgical History None recorded. Imaging Results Imaging Date Name Status LastModified by Organization Details LastModified Time 08/24/2023 MAMMO, screening, digital, bilateral completed [email or web address] [facility] [address], [place], [address], 09/01/2023 15:24:03 08/24/2023 DEXA completed [email or web address], [place], [address], 09/01/2023 15:26:04 10/14/2023 electrocardiogram completed [facility] [address], [place], [address], 10/14/2023 11:56:20 10/14/2023 electrocardiogram [email or web address] Informa tion not available 10/14/2023 10:55:07 10/14/2023 rhythm strip, EKG* [email or web address] In[facility] not available 11/06/2023 10:18:08 Procedure Notes None recorded. Medical Equipment None Reported. Allergies Allergen ID Allergen Name Allergen Category Reaction Reaction Severity Criticality Documentation Date Start Date Code Code System Note Provider Name and Address Organization Details Recorded Time 19332 amlodipin e medicatio n swelling severe high 11/18/2023 50235 RxNorm Shaneka Herrera MA null, [facility] 13:47:28 Medications Name Sig Start Date Stop [...] 1 tab by mouth daily 06/02 [facility] Not Available Not Available Not [...] as needed for spasms 10/15 completed [facility] Not Available Not Available Not Available Lamisil [...] daily as needed for pain 06/02 completed [facility] Not Available Not Available Not Available colchicin e 0.6 mg tablet Take 1 tablet twice a day by oral route for 14 days. 06/26/ 2024 07/05 /2024 completed [facility] Not Available Not Available Not [...] mass index (BMI) Body weight Body temperature Respiratory rate Heart rate Systolic blood pressure Diastolic blood pressure Provider Name and Address Organization Details Last Updated DateTime 4 164.34 cm 32.1 kg/m2 17967.1 4 g 97.8 [degF] 16 /min 82 /min 114 mm[Hg] 78 mm[Hg] KRYSTAL SKELTON LPN [facility] 08:48:01 Date Recorded Body height Body mass index (BMI) Body weight Body temperature Oxygen saturation Oxygen saturation in Arterial blood by Pulse oximetry Heart rate Respiratory rate Systolic blood pressure Diastolic blood pressure Provider Name and Address Organization Details Last Updated DateTime 4 164.34 cm 31.2 kg/m2 30278.1 8 g 99.8 [degF] 97 % 97 % 91 /min 17 /min 131 mm[Hg] 77 mm[Hg] Shaneka Herrera MA [facility] 13:46:32 Social History Question Answer Notes LastModified by Organizat ion Details LastModified Time Tobacco Smoking Status Never Smoker KRYSTAL SKELTON LPN [facility], [facility] 08/12/2023 07:44:55 Date Of Most Recent HSA [...] And Wanted Help? (For Example, If You [place] Very Nervous, Lonely, Or Blue; Got Sick [...] Of Your Most Recent Tobacco Screening? 11/18/2023 [email or web address] Information not available 11/18/2023 Has Tobacco Cessation Counseling Been Provided? Yes [email or web address] Information not available 11/18/2023 On What Date Was Tobacco Cessation Counseling Provided? 11/18/2023 [email or web address] Information not available 11/18/2023 Do You Or [...] Details Recorded Time Pneumococcal conjugate PCV20, polysaccharide [id number] conjugate, adjuvant, PF 08/12/20[address] completed MD [address], [place], [address], [facility] 08/12/2023 11:52:18 COVID-19, mRNA, LNP-S, PF, vanda-sucrose, 30 mcg/0.3 mL 08/12/[address] completed [address], [place], [address], [facility]. 08/12/2023 11:52:18 Tdap 11/05/2010 completed Not Available [facility] 06:18:37 Tdap 02/18/2021 completed Not Available [facility] 06:18:37 zoster live 07/28/2014 completed Not Available [facility] 03/13/2023 06:18:37 Influenza, high-dose, trivalent, PF 02/22/2018 completed Not Available [facility] 03/13/2023 06:18:38 Influenza, split virus, trivalent, preservative 09/03/2015 completed Not Available [facility] 03/13/2023 06:18:38 Pneumococcal Conjugate, unspecified formulation 07/28/2014 completed Not Available [facility] 03/13/2023 06:18:38 Influenza, split virus, quadrivalent, preservative 02/03/2017 completed Not Available [facility] 03/13/2023 06:18:38 Influenza, high-dose, quadrivalent, PF 02/06/2022 completed Not Available [facility] 03/13/2023 06:18:38 Influenza, high-dose, quadrivalent, PF 02/18/2021 completed Not Available [facility] 03/13/2023 06:18:38 Influenza, high-dose, quadrivalent, PF 02/24/2020 completed Not Available [facility] 03/13/2023 06:18:38 COVID-19, mRNA, LNP-S, PF, 100 mcg/0.5mL dose or 50 mcg/0.25mL dose 06/28/2020 completed Not Available [facility] 03/13/2023 06:18:38 COVID-19, mRNA, LNP-S, PF, 100 mcg/0.5mL dose or 50 mcg/0.25mL dose 07/27/2020 completed Not Available [facility] 03/13/2023 06:18:39 COVID-19, mRNA, LNP-S, PF, 100 mcg/0.5mL dose or 50 mcg/0.25mL dose 03/19/2021 completed Not Available [facility] 03/13/2023 06:18:39 COVID-19, mRNA, LNP-S, bivalent, PF, 30 mcg/0.3 mL dose 02/06/2022 completed Not Available Replaced by [facility] 03/13/20 06:18:39 pneumococcal polysaccharide PPV23 11/05/2010 completed Not Available [facility] 2022 06:18:39 influenza, unspecified formulation 12/30/2015 completed Not Available [facility] 03/13/2023 06:18:39 influenza, unspecified formulation 04/17/2014 completed Not Available [facility] 03/13/2023 06:18:39 Influenza, high-dose, quadrivalent, PF 01/23/2023 completed Not Available Replaced by [facility] 05/15/2023 05:33:16 Past Encounters Encounter ID Performer Location Encounter Start Date Encounter Closed Date Diagnosis/Indication Diagnosis SNOMED-CT Code [id number] Samantha Razo RN [address] [place] [address] 08/05/2023 08:45:52 08/05/2023 08:54:59 Chronic kidney disease stage 3 [id number] Prediabetes 567590910 Anemia 934180681 [id number] ANA HER MD [address] [place] [address] 08/12/2023 08:32:58 08/12/2023 09:38:15 Adult health examination 722252404 Screening mammography 24 047846 Osteopenia 712330811 Decreased hearing 056869 001 Primary ma lignant neoplasm of female breast 28531318 Obesity 610660572 Active or passive immunization 951349705 Bicuspid aortic valve 72 843022 Atrial fibrillation 4943 6004 Diarrhea 60952371 Essential hypertension 02557136 Gastroesop hageal reflux disease without esophagitis 180750887 Hyperlipidemia 17483878 Hypothyroidism 47814105 Edema of l ower extremity 193313949 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 74794079691448 8 Idiopathic peripheral neuropathy 11115397 [id number] ANA HER MD [address] [place] [address] 10/14/2023 09:26:19 10/14/2023 11:16:13 Pre-surgery evaluation 365508670 Left side sciatica 22675 918454069 4 Atrial fibrillation 4943 6004 Chronic ki dney disease [id number] [facility] 44293891 Prediabetes 469831125 [id number] FAY YORK PA-C [address] [address] 11/18/2023 13:18:09 11/18/2023 14:34:24 Swelling of bilateral lower limbs 993874089 Health Concerns Section Related Observation LastModified by Organization Detai ls LastModified Time None Recorded Concern Status LastModified by Organization Details LastModified Time None Recorded Advance Directives Directive None Recorded Payers Encounter Date Sequence Insurance Name Policy Number Policy Palacio Covered Member ID Palacio Member ID Guarantor Name 08/05/2023 1 [place] [employer] [facility] [facility] Digna Lemus Bynewell [id number] Digna Allan Bynewell 08/05/2023 2 [place] [employer] [place] Digna Lemus Bynewell [id number] Digna M Bynewell 08/12/2023 1 [place] [facility] Digna Allan Bynewell [id number] Digna M Bynewell 08/12/2023 2 [place] [employer] [place] Digna Allan Bynewell [id number] Digna M Bynewell 10/14/2023 1 [place] [facility] Digna Allan Byford [id number] 4 Digna M Byford 10/14/2023 2 [place] [employer] [place] Digna Allan Byford [id number] Digna M Bynewell 11/18/2023 1 [place] [facility] [facility] Digna Allan Byford [id number] 4 Digna M Byford 11/18/2023 2 [place] [employer] [place] Digna Allan Bynewell [id number] Digna M [facility] Notes Date Note Type Note Provider Name and Address Organization Details Recorded Time 08/12/2023 text/html HPI Notes: Here for Medicare Wellness visit. SBINS and Medicare Wellness Self Assessment form were reviewed. The following concerns were noted: Trouble with hearing- Trouble with ambulation Unable to drive- due to neuropathy in her feet, can not feel gas and brakes. Needs help with shopping- because of inability to drive- has a good friend that takes her, or she uses [facility]. ____ The following chronic and or new problems were addressed: Obesity- no success with watching what she eats. she would like to discuss weight loss medication. /bicuspid aortic valve- recent visit with [place] tissue rewinder, had progressed, referral made to discuss TAVR. CKD- recent eGFR stable at 51 HTN- BP remains excellent on current medications, does not check at home. Hyperlipidemia- on statin GERD- s/p repair of hiatal hernia 03/2022, much better- no longer needing PPI. Hypothyroid- normal TSH November 2022 Iron deficiency anemia- on oral iron, H/H stable. MCV elevated, normal B12 2021, normal folate 2018 prediabetes- A1C recently normal at 5.5% Diarrhea- on colestipol since 01/2023. She continues to take colestipol for diarrhea and it works well. Atrial fibrillation- on xarelto- asymptomatic. Gout- on allopurinol- still occasional sharp pain, but nothing that lasts. sciatica- still bothers some days, radiates down left leg recently. On wait list to get back into PT. Pool is closed, she rides the bike when sciatica is quiet. Venous stasis- wears turbigrips. ROS-Denies Chest pain, VELEZ or visual issues. SOB more than usual and tiredness. ANA HER MD [address], [place], [address], [facility]. 08/12/2023 11:54:31 10/14/2023 text/html HPI Notes: Avinash parekh presents for pre-op evaluation. Procedure CT 3D TAVR Reconstruction with Cardiac surgery at [facility] on 10/19. She is hoping that her fatigue will improve with the intervention. Back and leg pain-She is still doing PT, recently over did, so she has needed to use some tramadol and needs a refill. She is there twice a week for an hour. She uses a reclining bike with arms that move as well- for 10-15 minutes. No chest pain or SOB with that. She can walk up a flight of stairs (does so regularly at home as no bathroom on the first floor), does need to walk slowly up stairs as she gets fatigued and SOB by the top. She just recently stopped taking VICTOZA due to nausea. She did lose another 10 pounds. She was always on the 0.6 mg dose. MD [address], [place], [address], [facility]. 10/14/2023 11:58:08 11/18/2023 text/html HPI Notes: Alma Delia is a 78-year-old female who presents with notable swelling of bilateral lower extremities a little bit worse on the left than right. Of note she was discharged from [facility] on October 27 after being admitted on [...] locally but is still being managed at [facility] with her next appointment scheduled on December 02. [address], [place], [address], [facility]. 11/18/2023 14:39:07 OBGyn Episode No OBEpisode recorded.
--- OUTSIDE RECORDS SUMMARY | 2023-11-18 15:07 | XMS_ITS | Encounter Summary ---
Author Organization [facility]ending [facility] To [facility] [place] [address] Care Team Providers Care Flat Surfacer Name Role Phone Ana Her MD Primary Care Provider [phone] Encounter Details Date Type Department Care Team (Late st Contact Info) Description 03/09/2022 Telephone [place] [address] Prakash Mendez MD [facility] [place] [address] Social History Tobacco Use Types Packs/Day Years Used Date Smoking Tobacco: Never Smokeless Tobacco: Never Alcohol Use Standard Drinks/Week Comments Yes 2 (1 standard drink = 0.6 oz pur e alcohol) social only Sex and Gender Information Value Date Recorded Sex Assigned at Not on file Gender Identity Not on file Sexual Orientation Not on file documented as of this encounter Miscellaneous Notes * Telephone Encounter - Prakash Mendez - 03/09/2022 7:32 PM EST I returned the patient's call at 7:32 PM. I spoke with her daughter Vanessa who had called in. Digna Olson is a 76 y.o. female who is s/p laparoscopic paraesophageal hernia repair with Toupet fundoplication with Dr. Will on 03/05 Vanessa called in regards to her mother's symptoms. She is not with her mother right now. She reports her mother has not been feeling well today. She has had significant pain in her neck and shoulder today that is not well controlled with the oxycodone. She also has had diarrhea all day today and thinks she may be dehydrated. She has been tolerating a liquid diet, taking in soups and other liquids since discharge. Vanessa reported that she thinks her mother was driving with her other daughterto the Emergency Room. I then called Ms. Olson at the mobile number listed in her chart ([phone]). Her other daughter answered the phone and reported that she had just dropped her off in the Emergency Department at [facility] and parked the car. She was walking back to the building to be with her. I reassured her that going to the Emergency Department seemed like a reasonable plan. I assured her that we are always happy to see her here at [facility] anytime and that they could call back anytime with further questions or concerns. This note will be routed to the provider mentioned above. Prakash Mendez MD documented in this encounter Plan of Treatment Not on file documented as of this encounter Visit Diagnoses Not on filedocumented in this encounter Care Teams Flat Surfacer Relationship Specialty Start Date End Date Ana Her MD [address] [place] [address] PCP - General 07/29/13 documented as of this encounter
--- OUTSIDE RECORDS SUMMARY | 2023-11-18 15:07 | XMS_ITS | Encounter Summary ---
Author Organization [facility] [place] [address] Care Team Providers Care Conductor Freight Name Role Phone Ana Her MD Primary Care Provider [phone] Encounter Details Date Type Department Care Team (Late st Contact Info) Description 03/09/2022 11:00 PM EST Ancillary Procedure [place] [address] Ana Her MD [facility] [address] [place] [address] Social History Tobacco Use Types Packs/Day Years Used Date Smoking Tobacco: Never Smokeless Tobacco: Never Alcohol Use Standard Drinks/Week Comments Yes 2 (1 standard drink = 0.6 oz pur e alcohol) social only Sex and Gender Information Value Date Recorded Sex Assigned at Not on file Gender Identity Not on file Sexual Orientation Not on file documented as of this encounter Plan of Treatment Not on file documented as of this encounter Procedures Procedure Name Priority Date/Time Associated Diagnosis Comments FILM LIBRARY STORAGE ONLY CT CHEST Routine 03/09/2022 10:56 PM EST documented in this encounter Results * Film Library- Storage Only CT Chest (03/09/2022 10:56 PM EST) Narrative [facility] - 03/09/2022 10:56 PM EST This exam is auto-finalizing. It's purpose is for storage only. Ana Her MD [facility] [place] FILM LIBRARY ORD ERABLES [place], [place] documented in this encounter Visit Diagnoses Not on filedocumented in this encounter Care Teams Conductor Freight Relationship Specialty Start Date End Date Ana Her MD [address] [place] [address] [facility] [address] [place] [address] PCP - General 07/29/13 documented as of this encounter
--- OUTSIDE RECORDS SUMMARY | 2023-11-18 15:07 | XMS_ITS | Encounter Summary ---
[place] [address] Care Team Providers Care Machine Folder Name Role Phone Ana Her MD Primary Care Provider [phone] Encounter Details Date Type Department Care Team (Late st Contact Info) Description 02/03/2023 Telephone [place] [id number] Maryam Barrett Social History Tobacco Use Types Packs/Day Years [...] encounter Miscellaneous Notes * Telephone Encounter - Maryam Barrett - 02/03/2023 9:37 AM EDT Patient called about appt scheduled for her with Dr. Otero. I explained that we wanted to help her get re-established with an oncologist after Dr. Lowry's departure and to help with anastrazole renewals/script. She let me know that her PCP has ordered her most recent mammo and will order future ones, and that she stopped anastrazole after last visit (Jun 2021 w Laura Joaquin) and doesn't wish to follow up further. I let her know I would reach out to the team and we would call if we object documented in this encounter Plan of Treatment Not on file documented as of this encounter Visit Diagnoses Not on filedocumented in this encounter Care Teams Machine Folder Relationship Specialty Start Date End Date Ana Her MD [address] [place] [address] PCP - General 07/29/13 documented as of this encounter
--- OUTSIDE RECORDS SUMMARY | 2023-11-18 15:07 | XMS_ITS | Clinical Summary ---
Author Organization [facility] [place] [address] Care Team Providers Care Housefellow Name Role Phone Ana Her MD Primary Care Provider [phone] Allergies No known active allergies Medications Medication Sig Dispensed Refills Start Date End Date Status atorvastatin (LIPITOR) 40 mg Tablet Take 40 mg by mouth daily. Active furosemide (LASIX) 40 mg Tablet Take 40 mg by mouth daily. Active gabapentin (NEURONTIN) 300 mg Capsule Take 300 mg by mouth 2 times daily. Active cyanocobalamin, Vitamin B-12, (Vitamin B-12) 1,000 mcg Tablet Take 1,000 mcg by mouth. Active cholecalciferol, Vitamin D3, 25 mcg (1,000 unit) Capsule Take 1,000 each by mouth 2 times daily. Active magnesium 250 mg Tablet Take by mouth 2 times daily. Active levothyroxine (Synthroid) 100 mcg Tablet 04/29/2019 Active allopurinol (Zyloprim) 100 mg Tablet Take 200 mg by mouth Daily. 03/24/2018 Active ferrous sulfate EC 325 mg (65 mg iron) Tablet, Delayed Release (E.C.) Take 325 mg by mouth daily. Active carvediloL (Coreg) 6.25 mg Tablet Take 6.25 mg by mouth 2 times daily (with meals). Active acetaminophen (Tylenol) 500 mg Tablet TAKE TWO TABLETS BY MOUTH EVERY 8 HOURS NEEDED FOR PAIN 02/16/2020 Active ascorbic acid, Vitamin C, (Vitamin C) 500 mg Tablet Take 500 mg by mouth Daily. Active calcium carbonate 500 mg calcium (1,250 mg) Capsule Take 1,250 mg by mouth Daily. Active traMADoL (Ultram) 50 mg Tablet TAKE 1 TABLET BY MOUTH EVERY 12 HOURS NEEDED 04/17/2020 Active spironolactone (Aldactone) 25 mg Tablet 03/19/2021 Active anastrozole (Arimidex) 1 mg TabletIndications:Mal ignant neoplasm of lower-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, estrogen receptor positive Take 1 tablet by mouth daily. 90 tablet 3 06/11/2021 Active lisinopriL (Zestril) 10 mg Tablet Take 10 mg by mouth daily. 12/19/2021 Active Xarelto 15 mg Tablet Take 15 mg by mouth daily. 12/19/2021 Active polyethylene glycoL (Miralax) 17 gram/dose Powder Take 17 g by mouth daily as needed (for constipation). 03/06/2022 Active ondansetron ODT (Zofran-ODT) 4 mg Tablet, Rapid Dissolve Take 1 tablet by mouth every 8 hours as needed for Nausea. 20 tablet 03/06/2022 Active senna (Senokot) 8.6 mg Tablet Take 1 tablet by mouth 2 times daily as needed for Constipation. 03/06/2022 Active oxyCODONE (Roxicodone) 5 mg Tablet Take 1 tablet by mouth every 6 hours as needed for Pain. 12 tablet 03/06/2022 Active Active Problems Problem Noted Date Diagnosed Date Paraesophageal hernia 03/06/2022 S/P repair of paraesophageal hernia 03/05/2022 Atrial fibrillation with rapid ventricular respo nse 03/30/2018 Overview (05/22/2020): Last Assessment & Plan: Found to be in atrial fibrillation in Mar 2017 after colonoscopy. She was transitioned to PO metoprolol for rate control and inititally started on eliquis for stroke ppx however, she has since started on coumadin due to cost of the eliquis and has been managed by [facility]. She has remained in Afib over the past year and recent TTE showed a decrease in LV systolic function EF 50% to only 39%. She was seen by Dr Burkett in clinic who advised DCCV which was scheduled. She presented from home on 03/30- her INR was only 1.9, so she was started on lovenox and had ASHLEY done which showed that there was no evidence of LA thrombus. She had DCCV with 200j and then with 360j with no success Plan: - EP consulted- Sotalol started and underwent repeat DCCV on 04/02, successful. - Sotalol stopped on 04/03 due to worsening renal function and prolonging of QTC - After Sotalol wash-out, low dose Toprol started, 12.5 mg daily on 04/04 - Had brief run of PAF on 04/04 - but remains in SR at this time. - Per EP - plan for now is BB only. Will need repeat echo as an outpatient and then follow up with Dr. Burkett and Dr. Sawyer as an outpatient. - INR 1.9 on admission. She takes 2 mg warfarin 4 days/week and 3 mg on Mon/Thu/Fri. INR increased to 2.9 over weekend (after 2 doses of 4 mg) INR 2.7 today. Will give usual 3 mg dose tonight and check INR in am. - Will need close follow up with INR check 1-2 days after discharge - TSH abnormal this admission - Synthroid was adjusted (see below). Will need f/u labs in 4 weeks. 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 Ana Her in [place] in January She will discuss ECHO results with Dr. 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 Olson presented February 12, 2017 on screening mammography with a new area of focal asymmetric density in the central, inferior left breast. Diagnostic imaging on February 17 showed an 8 x 4 mm mass in the left breast on mammography, but the mass could not be identified on ultrasound. Diagnostic imaging here on February 25 showed a 3 mm hypoechoic mass with distortion at 5:00 of the left breast, 9 cm from the nipple. 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 On March 30 she underwent a needle localization excision and sentinel node biopsy. 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 Three sentinel node were negative. 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 08/30/2014 Anemia 11/05/2010 Overview (05/22/2020): Overview: Anemia; *See attached note in LMR Aortic valve stenosis 10/17/2009 Overview (05/22/2020): Overview: Aortic stenosis; *See attached note in LMR; congenital aortic stenosis, echo 03/11, unchanged, repeat 2009 Overweight 08/06/2009 Overview (05/22/2020): Overview: Overweight; *See attached note in LMR Vertigo 10/03/2008 Overview (05/22/2020): Overview: Vertigo; *See attached note in LMR Urinary incontinence 09/29/2007 Overview (05/22/2020): Overview: Urinary incontinence; *See attached note in LMR Iron deficiency anemia 07/08/2006 Overview (05/22/2020): Overview: Iron deficiency anemia; *See attached note in LMR Thoracic aortic aneurysm without rupture 007 Overview (05/22/2020): Overview: Thoracic aortic aneurysm; *See attached note in LMR; followed in thoracic aorta center with Dr. Gilmore 06/10 Edema 11/05/2005 Overview (05/22/2020): Overview: Edema; *See attached note in LMR Leg cramps 04/09/2005 Overview (05/22/2020): Overview: Leg cramps; *See attached note in LMR Hypercholesterolemia 01/04/2004 Overview (05/22/2020): Overview: Elevated cholesterol; *See attached note in LMR Last Assessment & Plan: She has hx of HLD and is on atorvastatin 40mg QPM. - Continue atorvastatin 40mg QPM. - LDL 79- consider dose increase - low fat diet - She has no history of CAD - stress test in 06/2016 was negative for ischemia. No plans for ischemic work up at this time (? Ischemia as possible etiology of cardiomyopathy) Arthritis 02/10/2003 Overview (05/22/2020): Overview: Arthritis; *See attached note in LMR Sleep disorder 10/14/2002 Overview (05/22/2020): Overview: Sleep disorder; *See attached note in LMR; diurnal hypersomnia- followed by Dr. Pruitt, on CPAP Fatigue 07/22/2002 Overview (05/22/2020): Overview: Fatigue; *See attached note in LMR Hypothyroidism 05/14/2000 Overview (05/22/2020): Overview: Hypothyroidism; *See attached note in LMR Last Assessment & Plan: H/o hypothyroidism, on levothyroxine. She had her annual physical 02/22/18 and at that visit her PCP decreased her levothyroxine dose from 125mcg QD to 112mcg QD for a TSH of 0.03. She has been on levoxyl for years with stable doses and her TSH has been fine. She has been in AF for at least a year with poor rate control. Unlikely that the recent low TSH level is the precipitating trigger. Her TSH on arrival 03/30 was 0.04. - TT3 and FT4 nl - My MANAGER IMAGE colleague called and spoke with covering MD for her PCP- he was agreeable to changing dose or leaving as is as she has not been on this dose long enough to see full effect of change. - plan was to keep on 112 mcg/day and have labs in [address] Carranza felt strongly that we should lower the dose (despite the fact that she has had nl TSH and has been in AF since last March so her thyroid is likely not precipitating this issue) . At his insistence, we decreased to 100 mcg in am. She will need repeat labs locally in the next 4-6 weeks Gastroesophageal reflux disease 04/10/2000 Overview (05/22/2020): Overview: Gastroesophageal reflux disease; *See attached note in LMR; +h.pylori, prevpac taken, take prilosec for 2 months, d/c and see if sx's recur. Hypertensive disorder 04/10/2000 Overview (05/22/2020): Overview: Htn; *See attached note in LMR Last Assessment & Plan: H/o HTN managed by PCP in [place]. BP has been reasonable on home meds - SBP ranging 120-140 mmhg last 24 hours (in setting of ACEI, aldactone and Lasix being held) - Resume home meds given renal function has returned to baseline. - Reinforce low Na diet (her current diet is high in Na) Family History Medical History Relation Comments Suicide Brother Pancreatic Cancer Maternal Aunt Early 40's? Breast Cancer Maternal Cousin 1 daughter to af fected M Aunt) Pancreatic Cancer Maternal Cousin 2 60s Pancreatic Cancer Maternal Cousin 3 Whipple surg ruben Prostate Cancer Maternal Cousin 3 Leukemia Maternal Cousin 4 Prostate Cancer Maternal Cousin 4 Heart Disease Maternal Cousin 5 Rectal Cancer Maternal Grandfather At a young age Deep Vein Thrombosis Sister 1 Osteoporosis Sister 2 Arthritis Sister 3 Ovarian Cancer Neg Hx Relation Status Comments Brother (Age 30) Father Maternal Aunt Maternal Cousin 1 (Age 75) Maternal Cousin 2 Maternal Cousin 3 Alive Maternal Cousin 4 Maternal Cousin 5 Alive Maternal Grandfather Mother Sister 1 (Age 58) Sister 2 Alive Sister 3 Alive Social History Tobacco Use Types Packs/Day Years Used Date Smoking Tobacco: Never Smokeless Tobacco: Never Alcohol Use Standard Drinks/Week Comments Yes 2 (1 standard drink = 0.6 oz pur e alcohol) social only Sex and Gender Information Value Date Recorded Sex Assigned at Not on file Gender Identity Not on file Sexual Orientation Not on file Last Filed Vital Signs Vital Sign Reading [...] Mass Index 32.13 03/05/2022 12:19 PM EDT Plan of Treatment Health Maintenance Due Date Last Done Comments Pneumoccocal Vaccine: 65+ (1 of 2 - PCV) 08/16/1951 Hepatitis C Screening 08/16/1963 Tdap adult 1964 Tetanus vaccine 1964 Zoster vaccine (1 of 2) 08/16/1995 Advance Directive 2000 Covid-19 Vaccine ( - 2022-2 4 season) 2023 Influenza (Flu) vaccine (1 o f 1 - Influenza standard series) 01/03/2024 Bone Density Scan 11/16/2035 11/15/2020, 11/09/2018 Breast Cancer screening Discontinued 06/11/19, 05/22/2020, 05/31/2019, Additional history exists Medical Devices Implanted Type Area Drug Safety Physician Device Identifier Shelf Expiration Date Model / Serial / Lot Breast Clip-02/26/20 17 Implanted: by Enzo Burkett MD (Quantity not on file) Breast Clip Left: Breast Bard - 0614 05/04/2019 [employer] ULTRACOR BREAST TISSUE MARKER ULTRASOUND ENHANCED BLANCA / / [id number] Description:BLANCA Procedures Procedure Name Priority Date/Time Associated Diagnosis Comments MAMMO SCREENING CAD AND ROBE BILATERAL Routine 06/11/2021 9:02 AM EST 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, estrogen receptor positive Breast cancer screening by mammogram DXA CENTRAL SPINE, HIP, AND/OR WHOLE BODY (GENERIC) Routine 11/15/2020 3:30 PM EDT 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 Hx L breast cancer w/ PM, no XRT 2016. TECHNIQUE: CC and MLO views were obtained of both breasts. Computer aided detection was used. 3D tomosynthesis images were obtained in addition to 2D images. COMPARISON: The study is compared with prior images. FINDINGS: Breast density: There are scattered areas of fibroglandular density There are no suspicious microcalcifications, masses, or areas of distortion. There are post treatment changes in the left breast. CONCLUSION: No mammographic evidence of malignancy. RECOMMENDATION: Routine annual screening. BIRADS CATEGORY 2: BENIGN FINDINGS * ??Regular screening mammograms starting between age 40 and 50 reduces the risk of from breast cancer. * ??All screening tests have both risks and benefits. These risks and benefits should be assessed for each individual patient through discussion with their provider to determine their preferred breast cancer screening schedule. * ??Women should report any breast changes to a health care provider right away. * ??Some women, because of their family history, a genetic tendency, or other factors, should be screened with annual breast MRI as well as with mammograms. (The number of women who fall into this category is very small). Patients and health care providers should discuss the history of each patient to decide if earlier screening and/or breast MRI are appropriate. * ??Screening should continue as long as a woman is in good health and is expected to live 10 years or longer. * ??Screening mammography may not detect 10-15% of breast cancers. Thank you for letting us participate in the care of this patient. ??If you are a health care provider and have any questions regarding this report, please contact the number below. ??For patients who have questions please contact the health weekend caregiver that requested your imaging first. ? Jeanine Lobato APRN IMG MAMMO ORD ERABLES * DXA Central Spine, Hip, and/or Whole Body (Generic) (11/15/2020 3:30 PM EDT) Anatomical Region Laterality Modality C-spine, Hip N/A Other Impressions 11/19/2020 1:09 PM EDT The small change of BMD is insignificant and represents normal variation since it is within or less than the calculated precision error or Least Significant Change. The measurements fulfill the WHO classification for low bone mass or osteopenia and there is no significant change. Estimating Fracture Risk: The relationship between bone mineral density (BMD) and risk of fracture is well established. As BMD decreases, risk increases. Quantifying risk is difficult and is usually limited to estimation of the relative risk - a term which may have limited value when trying to discuss an individual's risk. Estimating the absolute risk for a patient requires an understanding of the incidence rate in a given population and consideration of multiple, partially independent, risk factors in addition to BMD. The World Health Organization (WHO) has developed a fracture risk prediction tool that calculates a ten-year risk of major osteoporotic fracture based on femoral neck bone density measurements and nine clinical risk factors for individuals who have not been treated for osteoporosis. This is available through an interactive web-based interface (http://www.shef.ac.uk/FRAX/) and can be used to estimate a given patient's absolute risk of major osteoporotic fracture or hip fracture over the next 10 years. These estimates may prove useful when discussing risk with a patient. It is important, however, to understand the tool's limitations and how a given individual's risk might differ from the tool's estimate. The tool does not take into account the dose-response associated with most risk factors. For example, the significant increase in risk associated with multiple prior fractures compared to a single prior fracture is not taken into account. Similarly, the location of a previous fracture, the amount of glucocorticoids and number of cigarettes smoked are not considered. These limitations are discussed in a Frequently Asked Questions section of the FRAX website which you are encouraged to review. DEXA data sheets with BMD measurements and plots are available in Style[employer] under the imaging tab. Paper copies will be sent to providers without [employer] access. If you have received this report without the data sheet and do not have access to StyleQ, please contact Radiology Systems Program Manager at [phone] Thursday thru Thursday 8am-4pm. Thank you for letting us participate in the care of this patient. ??If you are a health care provider and have any questions regarding this report, please contact the number below. ??For patients who have questions please contact the health weekend caregiver that requested your imaging first. ? Electronically signed by: Nat Epperson MD, [facility] ([phone]), at 11/19/2020 1:09 PM Narrative 11/19/2020 1:09 PM EDT EXAMINATION: DXA CENTRAL SPINE, HIP, AND/OR WHOLE BODY (GENERIC) CLINICAL HISTORY: Aromatase inhibitor therapy for BrCa, ,entered by ordering service TECHNIQUE: Scans were acquired at the lumbar spine, and left hip. FINDINGS: Femoral neck BMD: 0.716 g/cm2 Lowest T-score at the diagnostic region of interest: T-score: -1.2, LEILANI: femoral neck, WHO diagnosis: low bone mass or osteopoenia. . ......... Comparison......... Previous scan:2019 Total spine: Compared to the previous, 1.9 % change. Total hip: Compared to the previous scan, -1.3 % change. Procedure Note Nat Epperson MD - 11/19/2020 EXAMINATION: DXA CENTRAL SPINE, HIP, AND/OR WHOLE BODY (GENERIC) CLINICAL HISTORY: Aromatase inhibitor therapy for BrCa, ,entered byordering service TECHNIQUE: Scans were acquired at the lumbar spine, and left hip. FINDINGS: Femoral neck BMD: 0.716 g/cm2 Lowest T-score at the diagnostic region of interest: T-score: -1.2, LEILANI: femoral neck, WHO diagnosis: low bone mass orosteopoenia. . ......... Comparison......... Previous scan:2019 Total spine: Compared to the previous, 1.9 % change. Total hip: Compared to the previous scan, -1.3 % change. IMPRESSION The small change of BMD is insignificant and represents normal variationsince it is within or less than the calculated precision error or LeastSignificant Change. The measurements fulfill the WHO classification for low bone mass orosteopenia and there is no significant change. Estimating Fracture Risk: The relationship between bone mineral density (BMD) and risk of fractureis well established. As BMD decreases, risk increases. Quantifying risk isdifficult and is usually limited to estimation of the relative risk - a term which mayhave limited value when trying to discuss an individual's risk. Estimatingthe absolute risk for a patient requires an understanding of the incidencerate in a given population and consideration of multiple, partially independent,risk factors in addition to BMD. The World Health Organization (WHO) has developed a fracture riskprediction tool that calculates a ten-year risk of major osteoporotic fracture basedon femoral neck bone density measurements and nine clinical risk factorsfor individuals who have not been treated for osteoporosis. This isavailable through an interactive web-based interface (http://www.shef.ac.uk/FRAX/)and can be used to estimate a given patient's absolute risk of majorosteoporotic fracture or hip fracture over the next 10 years. These estimates mayprove useful when discussing risk with a patient. It is important, however, to understand the tool's limitations and how a given individual's risk mightdiffer from the tool's estimate. The tool does not take into account thedose-response associated with most risk factors. For example, the significant increasein risk associated with multiple prior fractures compared to a single priorfracture is not taken into account. Similarly, the location of a previous fracture,the amount of glucocorticoids and number of cigarettes smoked are notconsidered. These limitations are discussed in a Frequently Asked Questions sectionof the FRAX website which you are encouraged to review. DEXA data sheets with BMD measurements and plots are available in E-DHunder the imaging tab. Paper copies will be sent to providers without [employer]- access.If you have received this report without the data sheet and do not haveaccess to E-, please contact Radiology Systems Program Manager at [phone] Thursday thruFriday 8am-4pm. Thank you for letting us participate in the care of this patient. If youare a health care provider and have any questions regarding this report,please contact the number below. For patients who have questions please contactthe health weekend caregiver that requested your imaging first. Ricky Lowry MD IMG DEXA ORDERABLES from Last 3 Months or Most Recently Relevant to Health Maintenance Advance Directives * Attempt Cardiopulmonary Resuscitation - Inpatient (Latest Code Status on File) Date Activated Date Inactivated Comments 03/05/2022 6:01 PM 03/07/2022 12:47 PM Question Answer Comments Code Status decision made by: Patient * Attempt Cardiopulmonary Resuscitation - Inpatient Date Activated Date Inactivated Comments 03/05/2022 1:05 PM 03/05/2022 6:01 PM Question Answer Comments Code Status decision made by: Patient Care Teams Housefellow Relationship Specialty Start Date End Date Ana Her MD [address]ov[address] [place] [address] PCP - General 07/29/13
--- OUTSIDE RECORDS SUMMARY | 2023-11-18 15:07 | XMS_ITS | Encounter Summary ---
Author Organization [facility] [place] [address] Care Team Providers Care Quality Assurance Consultant Name Role Phone Ana Her MD Primary Care Provider [phone] Encounter Details Date Type Department Care Team (Latest Contact Info) Description 04/03/2022 12:00 PM EST TH Visit (TeleHealth) [place] [address] Laura Will MD [facility] [place] [address] Status post repair of paraesophageal diaphragmatic hernia Social History Tobacco Use Types Packs/Day Years Used Date Smoking Tobacco: Never Smokeless Tobacco: Never Alcohol Use Standard Drinks/Week Comments Yes 2 (1 standard drink = 0.6 oz pur e alcohol) social only Sex and Gender Information Value Date Recorded Sex Assigned at Not on file Gender Identity Not on file Sexual Orientation Not on file documented as of this encounter Progress Notes * Laura Will MD - 04/03/2022 12:00 PM EST Images from the original note were not included. MINIMALLY INVASIVE SURGERY VIRTUAL VISIT NOTE Ms. Olson was contacted in follow up one month following her laparoscopic paraesophageal hernia repair with Toupet fundoplication. Her postoperative course was notable for getting COVID, from which she recovered. She continues to have some fatigue. Her denies heartburn and regurgitation and she isoff medications. She has no significant problems with dysphagia or inability to belch. Over the last couple days she has had diarrhea for which she is taking imodium. She denies significant abdominal pain and she feels that she is staying hydrated. She reports that her wound sites are well healed without signs of infection or hernia. Overall, she is doing well from the hiatal hernia repair perspective. If her diarrhea is persistent or severe, she will follow up with her PCP We discussed she knows to contact me if further problems develop. Time Attestation: I spent a total of 10 minutes associated with this encounter, including chart review, the patient encounter, and documentation. documented in this encounter Plan of Treatment Not on file documented as of this encounter Visit Diagnoses Diagnosis Status post repair of paraesophageal diaphragmatic hernia Other postprocedural status documented in this encounter Care Teams Quality Assurance Consultant Relationship Specialty Start Date End Date Ana Her MD [facility] [address] [place] [address] PCP - General 07/29/13 documented as of this encounter
--- OUTSIDE RECORDS SUMMARY | 2023-11-18 15:07 | XMS_ITS | Encounter Summary ---
[place] [address] Care Team Providers Care Rehabilitation Program Manager Name Role Phone Ana Her MD Primary Care Provider [phone] Encounter Details Date Type Department Care Team (Late st Contact Info) Description 10/23/2022 Telephone Mammography/[place] [phone] Aby Loredo Social History Tobacco Use Types Packs/Day Years [...] encounter Miscellaneous Notes * Telephone Encounter - Aby Loredo - 10/23/2022 11:52 AM EDT Pt declining f/u w/ Jeanine this year. documented in this encounter Plan of Treatment Not on file documented as of this encounter Visit Diagnoses Not on filedocumented in this encounter Care Teams Rehabilitation Program Manager Relationship Specialty Start Date End Date Ana Her MD [address] [place] [address] PCP - General 07/29/13 documented as of this encounter
--- OUTSIDE RECORDS SUMMARY | 2023-11-18 15:07 | XMS_ITS | Encounter Summary ---
Author Organization [facility] [place] [address] Care Team Providers Care Supervisor Machine Workers Name Role Phone Ana Her MD Primary Care Provider [phone] Encounter Details Date Type Department Care Team (Late st Contact Info) Description 03/10/2022 1:35 AM EST Ancillary Procedure [place]iology [place] [address] Ana Her MD [facility] [address] [place] [address] Social History Tobacco Use Types Packs/Day Years [...] FILM LIBRARY STORAGE ONLY CT CHEST Routine 03/10/2022 1:31 AM EST documented in this encounter Results * Film Library- Storage Only CT Chest (03/10/2022 1:31 AM EST) Narrative [facility] - 03/10/2022 1:31 AM EST This exam is auto-finalizing. It's purpose is for storage only. Ana Her MD [facility] [place]M LIBRARY ORD ERABLES [place], [place] documented in this encounter Visit Diagnoses Not on filedocumented in this encounter Care Teams Supervisor Machine Workers Relationship Specialty Start Date End Date Ana Her MD [address] [place] [address] [facility] [address] [place] [address] PCP - General 07/29/13 documented as of this encounter
--- OUTSIDE RECORDS SUMMARY | 2023-11-18 15:08 | XMS_ITS | Encounter Summary ---
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, estrogen receptor positive; Breast cancer screening by mammogram Discharge Disposition: Home Social History Tobacco Use Types Packs/Day Years Used Date Smoking Tobacco: Never Smokeless Tobacco: Never Alcohol Use Standard Drinks/Week Comments Yes 0 (1 standard drink = 0.6 oz pur e alcohol) social only Sex and Gender Information Value Date Recorded Sex Assigned at Not on file Gender Identity Not on file Sexual Orientation Not on file documented as of this encounter Medications at Time of Discharge Medication Sig Dispensed Refills Start Date End Date carvediloL (Coreg) 6.25 mg Tablet Take 6.25 [...] Tablet Take 40 mg by mouth daily. anastrozole (Arimidex) 1 mg TabletIndications:M alignant neoplasm of lower-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, estrogen receptor positive Take 1 tablet by mouth daily. 90 tablet 3 05/22/2020 06/11/2021 rivaroxaban (XARELTO ORAL) Take by mouth. 02/26/2022 omeprazole (PriLOSEC) 40 mg Capsule, Delayed Release(E.C.)Indica tions:gastroesophag eal reflux disease Take 20 mg by mouth daily. Indications: gastroesophageal reflux disease 05/15/2018 12/05/2021 lisinopril (PRINIVIL;ZESTRIL) 40 mg Tablet Take 10 mg by mouth daily. 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 History of left breast cancer. TECHNIQUE: CC and MLO views were obtained of both breasts. Computer aided detection was used. 3D tomosynthesis images were obtained in addition to 2D images. COMPARISON: The study is compared with prior images. FINDINGS: Breast density: The breasts are almost entirely fatty. There are no suspicious microcalcifications, masses, or [...] participate in the care of this patient. For questions regarding this report, please contact the number below. ? 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
--- OUTSIDE RECORDS SUMMARY | 2023-11-18 15:08 | XMS_ITS | Encounter Summary ---
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, estrogen receptor positive Macromastia Jeanine Lobato APRN [facility] [place] [address] [facility] Plastic Surg [address] [place] [address] Referral ID Status Reason Start Date Expiration Date V isits Requested Visits Authorized [id number] Closed Consult, Test & Treat 06/11/2021 06/11/2022 1 1 Encounter Details Date Type Department Care Team (Late st Contact Info) Description 06/11/2021 10:00 AM EST Office [place] [address] Jeanine Lobato APRN [facility] [place] [address] Encounter for follow-up surveillance of breast cancer; 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 Patient ID: Digna Olson is a 75 y.o. female HPI: Alma Delia is a patient of Dr. 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 She is status post left partial mastectomyand sentinel node excision on March 30, 2017. At today's visit, Alma Delia has no breast concerns and denies any new lumps or bumps in her breasts or axilla. She does perform occasional self-breast exams. No nipple discharge or pain in either breast. She denies any headaches or significant weight changes. No new chest pain or difficulty breathing. No new bony pain or tenderness. She had a consult with a neurosurgeon regarding her back pain, but surgery was not advised. She did experience some relief from a nerve block, but wonders if having a breast reduction would help further. She denies significant changes to her general health since her last visit. Breast cancer history: Alma Delia presented for screening mammography in February,. This revealed a possible asymmetry in the lower outer left breast. Right breast was normal. Call back views and US confirmed a solid 4mm mass at 5:00 in the left breast. Biopsy was obtained which revealed IDC which is ER/IN positive, Her2 negative. Alma Delia opted against XRT given no significant difference in survival, but started taking anastrozole in April 2017 which she is tolerating well. BREAST CANCER NOTES Method of Cancer Detection Screening mammogram 02/12/2017 Menopausal Status at Diagnosis Postmenopausal Date of Diagnostic Biopsy 02/25/2017 Local Surgery Left partial mastectomy Axillary Management SNE (0 [address] involved) Date of Last Surgical Procedure 03/30/2017 Histology Invasive mucinous carcinoma Location Left lower outer quadrant Size of Primary Malignancy 6 mm Grade Intermediate Margins Negative ER Positive IN Positive HER-2 Negative OncotypeDx Recurrence Score N/A Chemotherapy N/A Radiation Therapy Declined Adjuvant Endocrine Therapy Anastrozole started 04/2017 Surveillance Annual mammogram and CBE Comprehensive Breast Program Surgery Follow Up: Range of motion of surgical arm complete Lymphedema present No Cosmesis-surgeon reported Cosmesis-patient reported Excellent Excellent Local or regional recurrence No Contralateral cancer present No Distant recurrence present No Date of last follow up 05/22/2020 Breast Cancer Risk Factors: History Age at delivery of first child 19 yo Breast fed No Oral contraceptive use Yes Menarche age 12 yo LMP 40s Hormone replacement therapy Yes, less than 1 yr Family history of breast cancer Maternal cousin in her 30s. at 75 from metastatic cancer Family history of ovarian cancer No Ashkenazi Quaker heritage No Known genetic mutation Not tested Family History Problem (# of Occurrences) Relation (Name,Age of Onset) Arthritis (1) Sister (Nneka) Breast Cancer (1) Maternal Cousin (Lucille, 40): daughter to affected M Aunt) Deep Vein Thrombosis (1) Sister (Negrita) Heart Disease (1) Maternal Cousin (Pam) Leukemia (1) Maternal Cousin (Kofi) Osteoporosis (1) Sister (Nel) Pancreatic Cancer (3) Maternal Aunt (Tara): Early 40's?, Maternal Cousin (Nel): 60s, MaternalCousin (Dario): Whipple surgery Prostate Cancer (2) Maternal Cousin (Dario), Maternal Cousin (Shenglaura) Rectal Cancer (1) Maternal Grandfather: At a young age Suicide (1) Brother (Sridhar) Negative family history of: Ovarian Cancer Social Hx: Alma Delia continues to live alone. She has a son that lives about 20 minutes away. She and her ex- continue to speak almost daily. He lives in [place] and is beginning to show early signs of dementia. She enjoys reading and cooking. She does not smoke and drinks alcohol one or two drinks/wk Past Medical Hx: A-fib, aortic valve stenosis, cardiomyopathy, thoracic aortic aneurysm, T2DM, hypothyroidism, spinal stenosis, OA Physical Exam: General appearance: Alert, well-developed, well-nourished; in no acute distress. Skin: Warm and dry. Head: Normocephalic, atraumatic. Neck: Soft and supple without adenopathy. Cardiovascular: Normal rate, regular rhythm. Positive for murmur. Pulmonary: Effort normal and breath sounds normal. No respiratory distress, cough, or wheezing. Breasts: Left breast with well-healed inframammary and axillary incisions. Right breast appears normal. No suspicious masses, tenderness, dimpling, erythema, or other skin changes in either breast. No nipple discharge or other nipple changes. No palpable axillary lymph nodes bilaterally. The patient's breasts are large and generally symmetric. I feel no obvious discrete or dominant masses in either breast. Musculoskeletal: Arms with full ROM without any evidence of lymphedema. Fully weight-bearing. Neurological: Alert and oriented x 4. Mood is euthymic and appropriate to the situation. Results: Imaging performed (bilateral mammogram) at [facility] today shows no evidence of malignancy, BIRADS Category 2 with scattered areas of fibroglandular tissue. Post surgical changes on the left. Theresults were reviewed with her at today's appointment. Assessment: Clinical breast exam without notable masses, skin changes, dimpling, or nipple discharge. Doing well without evidence of recurrence. Stable exam. Plan: 1. Encounter for follow-up surveillance of breast cancer 2. 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 Breast cancer screening by mammogram - Mammo Screening Cad and Robe Bilateral; June 2022 4. Macromastia - Referral to Plastic Surgery I have discussed my assessment and recommendations with Alma Delia to include occasional self-breast exams and annual mammographic screening with clinical breast exams. Based on her risk status, her next bilateral screening mammogram is due in one year, or sooner if indicated. I will plan to see her for a clinical breast exam at that time. She will also contact me if she develops any new breast changesor concerns prior to that appointment. She agrees to this plan. Alma Delia requests a referral to Plastics to discuss options for breast reduction surgery. I am happy toplace that referral for her. Routine recommendations discussed with the patient including importance of regular moderate intensity exercise, nutrition, decreasing cardiovascular risk, and optimizing weight. Nonpharmacologic measures to help decrease your risk of developing breast cancer include the following: ?? Get at least 30 minutes of moderate intensity physical activity above normal activity on most days of the week to reduce the risk of chronic disease in adulthood. Walking is a good choice. You also may want to do other activities, such as running, swimming, cycling, playing tennis, or other teamsports. ?? Do strength training exercises at least twice a week to maintain muscle and bone health. ?? Drink alcohol in moderation, if at all. That means no more than 1 drink a day for women or 2 perday for men. ?? Make healthy eating choices: fruits and vegetables, lean protein, and healthy fats. Minimize processed foods, simple carbohydrates, sugars, and artificial sweeteners. ?? Maintain or achieve a healthy weight. Normal BMI < 25 for individuals under 65 years old; 22-30 for > 65 years old. ?? Manage stress levels. ?? Be cautious about exposure risk, both what you put in and on your body (ie: artificial fragrances, artificial dyes, as well as certain ingredients in makeup, hair and body care, antiperspirant, sunscreen, insect repellant, laundry detergent, fabric softener, dryer sheets, etc.). Resources to help you make informed choices for personal care products are available at EWG (Environmental Working Group) at https://www.ewg.org and free apps for your cell phone from [employer] ([employer]) and [employer] ([employer]). All questions were answered to the patient's satisfaction and they state understanding and agreement with today's treatment plan. They are encouraged to follow up sooner if they develop any new or concerning symptoms. 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
--- OUTSIDE RECORDS SUMMARY | 2023-11-18 15:08 | XMS_ITS | Encounter Summary ---
Author Organization [facility] [address] Care Team Providers Care Vegetable Washer Name Role Phone Ana Her MD Primary Care Provider [phone] Encounter Details Date Type Department Care Team (Late st Contact Info) Description 09/03/2021 Ancillary Procedure [place] [address] Laura Will MD [facility] [place] [address] Social History Tobacco Use Types Packs/Day Years [...] FILM LIBRARY STORAGE ONLY CT CHEST Routine 09/03/2021 12:00 AM EDT documented in this encounter Results * Film Library- Storage Only CT Chest (09/03/2021 12:00 AM EDT) Narrative [facility] - 11/28/2021 1:22 PM EDT This exam is auto-finalizing. It's purpose is for storage only. Laura Will MD IMG FILM LIBRARY OR DERABLES [place], [place] documented in this encounter Visit Diagnoses Not on filedocumented in this encounter Care Teams Vegetable Washer Relationship Specialty Start Date End Date Ana Her MD [facility] [address] [place] [address] PCP - General 07/29/13 documented as of this encounter
--- OUTSIDE RECORDS SUMMARY | 2023-11-18 15:08 | XMS_ITS | Encounter Summary ---
Author Organization [facility] [place] [address] Care Team Providers Care Director Of Recreation Therapy Name Role Phone Ana Her MD Primary Care Provider [phone] Encounter Details Date Type Department Care Team (Late st Contact Info) Description 05/10/2018 1:10 PM EST - 05/10/2018 11:59 PM [facility] Hospital Encounter Mammography/[place] [phone] Hiral Padgett APRN [facility] [place] [address] Encounter for screening mammogram for breast cancer Discharge Disposition: Home Social History Tobacco Use [...] Sig Dispensed Refills Start Date End Date allopurinol (Zyloprim) 100 mg Tablet Take 200 mg by mouth Daily. 03/24/2018 cholecalciferol, Vitamin D3, 25 mcg (1,000 unit) [...] Take 40 mg by mouth daily. anastrozole (ARIMIDEX) 1 mg TabletIndications:Malign ant neoplasm of lower-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, estrogen receptor positive Take 1 tablet by mouth daily. 90 tablet 3 05/10/2018 05/31/2019 metoprolol succinate (TOPROL-XL) 100 mg Tablet Sustained Release 24 hr Take 50 mg by mouth. 06/09/2017 05/31/2019 levothyroxine (SYNTHROID) 125 mcg Tablet Take 112 mcg by mouth daily. 05/31/2019 spironolactone (ALDACTONE) 25 mg Tablet Take 25 mg by mouth daily. 05/22/2020 amLODIPine (NORVASC) 10 mg Tablet Take 2.5 mg by mouth daily. 05/22/2020 lisinopril (PRINIVIL;ZESTRIL) 40 mg Tablet Take 10 mg by mouth daily. Taking 5 mg 02/26/2022 omeprazole (PRILOSEC) 20 mg Capsule, Delayed Release(E.C.) Take 20 mg by mouth daily. 05/31/2019 documented as of this encounter Plan of Treatment Not on file documented as of this encounter Procedures Procedure Name Priority Date/Time Associated Diagnosis Comments MAMMO SCREENING CAD AND JERAMY BILATERAL Routine 05/10/2018 1:32 PM EST Encounter for screening mammogram for breast cancer documented in this encounter Results * Mammo Screening Cad and Jeramy Bilateral (05/10/2018 1:32 PM EST) Anatomical Region Laterality Modality Breast Bilateral Mammography Narrative 05/10/2018 1:56 PM EST REASON FOR EXAM: Screening. History of left breast cancer. TECHNIQUE: CC and MLO views were obtained of both breasts. Computer aided detection was used. 3D tomosynthesis images were obtained in addition to 2D images. Comparison: The study is compared with prior images. FINDINGS: Breast density:The breasts are almost entirely fatty. There are no suspicious microcalcifications, masses, or areas of distortion. There are post treatment changes in the left breast. CONCLUSION: No mammographic evidence of malignancy. RECOMMENDATION: Routine screening. BIRADS CATEGORY 2: BENIGN FINDINGS * ??Medical organizations agree that annual screening mammography beginning at age 40 saves the most lives. * ??The risks of screening are negligible compared to dying from breast cancer or suffering from more aggressive treatment required when detected at a later stage. * ??No woman is at low risk for breast cancer. * ??Some women, because of their family history, a genetic tendency, or certain other factors, should be screened with breast MRI along with mammograms. (The number of women who fall into this category is very small). The patient and health care provider should discuss the patient history and decide if earlier screening and breast MRI are appropriate. * ??Screening should continue as long as a woman is in good health and is expected to live 10 years or longer. * ??Screening mammography may not detect 10-15% of breast cancers. * ??Women should report any breast changes to a health care provider right away. Hiral Padgett APRN IMG MAMMO ORDERA BLES documented in this encounter Visit Diagnoses Diagnosis Encounter for screening mammogram for breast cancer documented in this encounter Care Teams Director Of Recreation Therapy Relationship Specialty Start Date End Date Ana Her MD [address] [place] [address] PCP - General 07/29/13 documented as of this encounter
--- OUTSIDE RECORDS SUMMARY | 2023-11-18 15:08 | XMS_ITS | Encounter Summary ---
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, estrogen receptor positive Osteopenia of neck of femur, unspecified laterality terminal carman current 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 Procedures DXA Central-Spine, Hip, And/Or Whole Body (Generic) Ricky Lowry MD [facility] HEMATOLOGY/[place] [address] [facility] Rad Xray [address] [place] [address] [place] [address] Referral ID Status Reason Start Date Expiration Date V isits Requested Visits Authorized [id number] Closed Specialty Service Requested 05/10/2018 05/10/2019 1 1 Reason for Visit * Reason Comments Follow-up Encounter Details Date Type Department Care Team (Late st Contact Info) Description 05/10/2018 2:45 PM EST Office Visit Hematology [place] [address] Ricky Lowry MD [facility] HEMATOLOGY/[place] [address] 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, estrogen receptor positive; Osteopenia of neck of femur, unspecified laterality; [facility]FP current 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 Social History Tobacco Use Types Packs/Day Years [...] Sign Reading Time Taken Comments Blood Pressure 167/77 05/10/2018 2:37 PM EST Pulse 107 05/10/2018 2:37 PM EST Temperature 36.8 ??C (98.2 ??F) 05/10/2018 2:37 PM ES T Respiratory Rate 19 05/10/2018 2:37 PM EST Oxygen Saturation 97% 05/10/2018 2:37 PM EST Inhaled Oxygen Concentration - - Weight 95.8 kg (211 lb 3.2 oz) 05/10/2018 2:37 P M EST Height 166 cm (5' 5.35) 05/10/2018 2:37 PM EST Body Mass Index 34.77 05/10/2018 2:37 PM EST documented in this encounter Progress Notes * Ricky Lowry MD - 05/10/2018 2:45 PM EST Breast cancer follow-up HPI: Diagnosis of breast cancer stemming from a screening mammogram performed in February of this year. Been 3 years before the prior scan. This mammogram showed possible asymmetry in the lower outer left breast (0.4 cm irregular mass in the left breast, 6:00 radian, 12 cm from the nipple). The right breast was normal. 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 Intermediate grade, modified SBR score = 6 Microcalcifications:??Few calcifications associated with invasive carcinoma ER immunoreactivity: Positive (>90% cancer cells with immunostaining) Stain intensity: Strong CT immunoreactivity: Positive (>90% cancer cells with immunostaining) Stain intensity: Strong HER2 FISH: Negative for amplification 03/30/17 Surgery A,B - See Synoptic C - Left breast, Deep/lateral margin re-excision: Benign fatty breast tissue D - Left breast, Superficial margin re-excision: Benign fatty breast tissue A - Left axilliary sentinel node B - Left breast partial mastectomy Specimen ?Procedure: ??Excision with image-guided localization ?Lymph Node Sampling: ??[place] lymph node(s) ?Specimen Laterality: ??Left Tumor ?Histologic Type: ??Mucinous carcinoma ?Glandular (Acinar)/Tubular Differentiation: ??Score 3 ?Nuclear Pleomorphism: ??Score 2 ?Mitotic Rate: ??Score 1 ?Overall Grade: Grade 2 ?Tumor Size: Size of Largest Invasive Carcinoma: 6 mm ?Ductal Carcinoma In Situ (DCIS): ??No DCIS is present ?Tumor Extent ? Macroscopic and Microscopic Extent of Tumor ?Skin: ??Skin is not present ?Skeletal Muscle: ?? No skeletal muscle is present ?Accessory Tumor Findings ? Lymph-Vascular Invasion: ??Not identified ? Microcalcifications: Present in invasive carcinoma Margins ?Invasive Carcinoma: Margins uninvolved by invasive carcinoma ? Distance of Invasive Carcinoma to Margins ?Cranial: 2 mm ?Distance From Other Specified Margin: all other RM >10??mm ?Ductal Carcinoma In Situ (DCIS): ??DCIS not present in specimen Lymph Nodes ?[place] Lymph Nodes: [place] lymph node biopsy performed ?Number of [place] Nodes Examined: ??3 ?Number of Lymph Node(s) Examined (sentinel and nonsentinel): 3 ?Lymph Node Involvement: None identified Stage (pTNM) ?Pathological Stage: ?? pT1b pN0 She met already with radiation oncology and is not interested in radiation therapy. April 2017 started adjuvant endocrine therapy with anastrazole. PMH: Past Medical History: Diagnosis Date ??? Breast cancer ??? Fracture of tibia 12/2016 left tibial plateau ??? GERD (gastroesophageal reflux disease) ??? H/O non-insulin dependent diabetes mellitus ??? Spinal stenosis > A Fib. [place] [facility] Most [place] scan was last year at [facility]. There is no history of thromboembolic events. Soc Hx/Fam Hx: She lives alone. Son lives nearby. Family history is notable for a maternal first cousin with breast cancer diagnosed in her 40s. This person recently . In addition that cousin's sister has had pancreatic cancer as did a brother. These cousins are related to Ms. Olson via a maternal uncle. Maternal grandfather had rectal cancer. Her sister has had a pulmonary embolus. Mother had no cancer. Interval Hx/ROS: Main issues are cardiac. She's had two unsuccessful attempts at cardioversion, and an ablation is planned for later this week ([place] [facility] No new problems with VELEZ, diplopia, cough, COLÓN/SOB, pain (no change in chronic arthritic pain), fevers, bleeding of any kind, nausea/emesis, change in bowel or bladder function. No change in chronic balance problems. ROS otherwise neg. Exam: Most Recent Vitals: 05/10/18 1437 BP: 167/77 Pulse: (!) 107 Resp: 19 Temp: 36.8 ??C (98.2 ??F) SpO2: 97% PERRL, EOMi, sclera nonicteric Oropharynx benign No MARLEE No spine tenderness Chest: clear to A and P Breast exam deferred [done today by China Padgett] CV: irreg irreg, no murmurs Abd: NT, no HSM, +BS Ext: no c/c/e Neuro: grossly nonfocal. I reviewed images from today's mammogram, which was benign. 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 She is now status post partial mastectomy and sentinel node biopsy. Her invasive tumor was 6 mm in largest dimension. There was no angiolymphatic invasion. Nodes were negative. pT1N0. Tumor was strongly positive for both of these estrogen and progesterone receptors. HER2 is negative. At initial visit we discussed the components of managing invasive breast cancers. I focused on the role of systemic adjuvant therapy in the management of breast cancer. This context we discussed adjuvant endocrine therapy. Given her pathologic features I did not recommend chemotherapy. TACHO. Renewal of anastrazole sent. Given [facility] brochure to share with cousins. All questions answered. We will see her back in roughly 6 months, with repeat DEXA scan. documented in this encounter Plan of Treatment Not on file documented as of this encounter Results * DXA Central-Spine, Hip, And/Or Whole Body (Generic) (11/09/2018 1:52 PM EDT) Anatomical Region Laterality Modality C-spine, Hip N/A Other Impressions 11/10/2018 10:55 AM EDT Measurements satisfied the WHO classification for normal bone mineral density. However, measurements lie just at the threshold between normal bone mineral density and osteopenia. Estimating Fracture Risk: The relationship between bone [...] website which you are encouraged to review. DXA data sheets with BMD measurements and plots are available in [employer] under the imaging tab. Paper copies will be sent to providers without [employer] access. If you have received this report without the data sheet and do not have access to [employer], please contact Radiology [facility] at [phone] Thursday thru Thursday 8am-4pm. Thank you for letting us participate in the care of this patient. For questions regarding this report, please contact the number below. ? Narrative 11/10/2018 10:55 AM EDT EXAMINATION: DXA CENTRAL-SPINE, HIP, AND/OR WHOLE BODY (GENERIC) CLINICAL HISTORY: 73-year-old postmenopausal woman on an aromatase inhibitor for breast cancer TECHNIQUE: Scans were acquired at the lumbar spine and left hip COMPARISON: None FINDINGS: Lowest T-score at a diagnostic region of interest: T-score: -1.0, LEILANI: Left femoral neck, WHO diagnosis: Normal bone mineral density. Procedure Note Khushi Hughes MD - 11/10/2018 EXAMINATION: DXA CENTRAL-SPINE, HIP, AND/OR WHOLE BODY (GENERIC) CLINICAL HISTORY: 73-year-old postmenopausal woman on an aromataseinhibitor for breast cancer TECHNIQUE: Scans were acquired at the lumbar spine and left hip COMPARISON: None FINDINGS: Lowest T-score at a diagnostic region of interest: T-score: -1.0, LEILANI: Left femoral neck, WHO diagnosis: Normal bonemineral density. IMPRESSION Measurements satisfied the WHO classification for normal bone mineraldensity. However, measurements lie just at the threshold between normal bonemineral density and osteopenia. Estimating Fracture Risk: The relationship between bone [...] website which you are encouraged to review. DXA data sheets with BMD measurements and plots are available in [employer]under the imaging tab. Paper copies will be sent to providers without [employer] access.If you have received this report without the data sheet and do not haveaccess to [employer], please contact Radiology [facility] at [phone] Thursday thruFriday 8am-4pm. Thank you for letting us participate in the care of this patient. Forquestions regarding this report, please contact the number below. 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
--- OUTSIDE RECORDS SUMMARY | 2023-11-18 15:08 | XMS_ITS | Encounter Summary ---
[place] [address] Care Team Providers Care Sales Lead Name Role Phone Ana Her MD Primary Care Provider [phone] Encounter Details Date Type Department Care Team (Late st Contact Info) Description 02/04/2022 12:00 PM EDT Notes [place] [address] Social History Tobacco Use Types Packs/Day Years [...] on filedocumented in this encounter Care Teams Sales Lead Relationship Specialty Start Date End Date Ana Her MD [address] [place] [address] PCP - General 07/29/13 documented as of this encounter
--- OUTSIDE RECORDS SUMMARY | 2023-11-18 15:08 | XMS_ITS | Encounter Summary ---
[place] [address] Care Team Providers Care Equipment Superintendent Name Role Phone Ana Her MD Primary Care Provider [phone] Encounter Details Date Type Department Care Team (Late st Contact Info) Description 11/01/2021 Telephone [place] [phone] Chelsie Lauren Social History Tobacco Use Types Packs/Day Years [...] on filedocumented in this encounter Care Teams Equipment Superintendent Relationship Specialty Start Date End Date Ana Her MD [address] [place] [address] PCP - General 07/29/13 documented as of this encounter
--- OUTSIDE RECORDS SUMMARY | 2023-11-18 15:08 | XMS_ITS | Encounter Summary ---
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, estrogen receptor positive Social History Tobacco Use Types Packs/Day Years [...] Sign Reading Time Taken Comments Blood Pressure 147/76 05/31/2019 11:24 AM EST Pulse 95 05/31/2019 11:24 AM EST Temperature 36.2 ??C (97.2 ??F) 05/31/2019 11:[address] Respiratory Rate 18 05/31/2019 11:24 AM EST Oxygen Saturation 96% 05/31/2019 11:24 AM EST Inhaled Oxygen Concentration - - Weight 97.5 kg (215 lb) 05/31/2019 11:24 AM EST With SHoes Height 169.6 cm (5' 6.77) 05/31/2019 11:[address] With SHoes Body Mass Index 33.9 05/31/2019 11:24 AM EST documented in this encounter Progress Notes * Ricky Lowry MD - 05/31/2019 11:45 AM EST Breast cancer follow-up HPI: Diagnosis of breast cancer stemming from a screening mammogram performed in February 2017. This mammogram showed possible asymmetry in the [...] cancer cells with immunostaining) Stain intensity: Strong [place] immunoreactivity: Positive (>90% cancer cells with immunostaining) [...] ??Excision with image-guided localization ?Lymph Node Sampling: ??[place] lymph node(s) ?Specimen Laterality: ??Left Tumor ?Histologic [...] ??DCIS not present in specimen Lymph Nodes ?[place] Lymph Nodes: [place] lymph node biopsy performed ?Number of [place] Nodes Examined: ??3 ?Number of Lymph Node(s) [...] Spinal stenosis > A Fib. [place] [facility] [place] S/P successful cardioversion May 2018. DEXA scan November 2018: normal bone density. There is no history of thromboembolic events. Soc Hx/Fam Hx: She lives alone. Son lives nearby. No change in family history, notable for a maternal first cousinwith breast cancer diagnosed in her 40s (). In addition that cousin's sister has had pancreaticcancer as did a brother. These cousins are related to Ms. Olson via a maternal uncle. Maternal grandfather had rectal cancer. Her sister has had a pulmonary embolus. Mother had no cancer. Interval Hx/ROS: She indicated no side effects from anastrazole, but on later discussion mentioned some numbness anddiscomfort in fingertips since starting. No new problems with VELEZ, diplopia, cough, SOB, other new pain (no change in chronic arthritic pain), fevers, bleeding of any kind, nausea/emesis, change in bowel or bladder function. No change in chronic balance problems. ROS otherwise neg. Exam: Most Recent Vitals: 05/31/19 1124 BP: 147/76 Pulse: 95 Resp: 18 Temp: 36.2 ??C (97.2 ??F) SpO2: 96% PERRL, EOMi, sclera nonicteric Oropharynx benign No MARLEE No spine tenderness Chest: clear to A and P Breast exam deferred [seeing surgery group today] CV: Reg, tachy, no murmurs Abd: NT, no HSM, +BS Ext: no c/c/e Neuro: grossly nonfocal. I reviewed images from today's bilateral mammogram, which was benign. Assessment/Rec: 73-year-old female diagnosed February 2017 with a mucinous carcinoma in the left breast. She is now status post partial mastectomy and sentinel node biopsy. Her invasive tumor was 6 mm in largest dimension. There was no angiolymphatic invasion. Nodes were negative. pT1N0. Tumor was strongly positivefor both of these estrogen and progesterone receptors. HER2 is negative. At initial visit we discussed the components of managing invasive breast cancers. I focused on the role of systemic adjuvant therapy in the management of breast cancer. This context we discussed adjuvant endocrine therapy. Given her pathologic features I did not recommend chemotherapy. She declinedradiation therapy. Anastrazole started April 2017. TACHO. We discussed the possible symptoms she has that might be related to the anastrazole, She couldconsider trying a month off to see what gets better. If does so, I asked her to call and let us know. If sxs better could either resume or switch to a different AI All questions answered. We will see her back in roughly 6 months. 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
--- OUTSIDE RECORDS SUMMARY | 2023-11-18 15:08 | XMS_ITS | Encounter Summary ---
[place] [address] Care Team Providers Care Food Expeditor Name Role Phone Ana Her MD Primary Care Provider [phone] Encounter Details Date Type Department Care Team (Late st Contact Info) Description 01/08/2022 7:42 AM EDT Anesthesia [place] [address] Alisa Naqvi MD [facility] [place] [address] Anesthesia Record Procedure Summary Procedure Name Responsible Anesthesiologist Anesthesia Start Time Anesthesia Stop Time EGD, UPPER GI ENDOSCOPY (WRVU 2.09) (Trunk) Alisa Naqvi MD 01/08/22 0742 01/08/22 0826 Events Date Time Event Comment 01/08/2022 0652 0742 AN Verify 0742 Start 0742 An Start Data 0746 An Induction 0750 Anesthesia Ready 0808 Quick Note Inaccurate read ing 0818 an stop data 0826 Recovery or ICU Handoff Claudia ent care was transferred to the destination unit staff after review of the patient's medical history, current anesthetic/surgical status and plan, according to the Provider Handoff Checklist. 0826 Stop Meds Name Total Propofol 185 mg Propofol INF 379.31 mg PHENYLephrine 240 mcg Dexamethasone 8 mg Ondansetron 4 mg Lactated Ringers 600 mL * Agents Name O2 Air N2O * Blood No blood administrations on file. Lines, Drains, and Airways Type Details Placement Removal (RETIRED) Peripheral IV Line - Single Lumen 01/08/22; 732; cephalic vein (lateral side of arm), left; [id number] catheter system; Anatomical Landmarks; 20 gauge; Joslyn RN; tolerated well, appears comfortable; 01/08/22; 92601/08/22 07 by Sorin Hurd RN 01/08/22926 by Gabriela Ayers RN documented in this encounter Social History Tobacco Use Types Packs/Day Years Used Date Smoking Tobacco: Never Smokeless Tobacco: Never Alcohol Use Standard Drinks/Week Comments Yes 2 (1 standard drink = 0.6 oz pur e alcohol) social only Sex and Gender Information Value Date Recorded Sex Assigned at Not on file Gender Identity Not on file Sexual Orientation Not on file documented as of this encounter OR Notes * Anesthesia Postprocedure Evaluation - Alisa Naqvi MD - 01/08/2022 8:28 AM EDT Department of Anesthesiology Post-procedure Note Patient: Digna Olson Procedure Summary Date: 01/08/22 Room / Location: [address] MAIN OR Anesthesia Start: 741 Anesthesia Stop: 825 Procedure: EGD, UPPER GI ENDOSCOPY (N/A Trunk) Diagnosis: (Hiatal hernia) Surgeons: Laura Will MD Responsible Provider: Alisa Naqvi MD Anesthesia Type: general ASA Status: 3 All Anesthesia Providers: Anesthesiologist: Alisa Naqvi MD Hammer Setter: Nghia Valerio MD Vitals Value Taken Time BP 98/56 01/08/22 0823 Temp Pulse Resp SpO2 99 % 01/08/22 0827 Pain Level Vitals shown include unvalidated device data. Patient Location: PACU/[facility] Level of Consciousness: Conscious but Sleepy Pain Management: Satisfactory Analgesia PONV: None Cardiovascular Status: Hemodynamically Stable Respiratory Status: Supplemental O2 (NC or FM) and Stable Respiratory Status Postoperative Fluid Status: Possible Anesthetic Complications: NONE apparent at time of evaluation Final Primary Anesthesia Type: MAC (The anesthetic type performed was the same as planned.) Comments: * Anesthesia Preprocedure Evaluation - Alisa Naqvi MD - 01/07/2022 1:51 PM EDT Pre-Anesthesia Evaluation for: Digna Olson a 76 y.o. female. Procedure(s): EGD, UPPER GI ENDOSCOPY Patient Active Problem List Diagnosis Date Noted ??? Atrial fibrillation with rapid ventricular response 03/30/2018 ??? Cardiomyopathy, nonischemic 03/30/2018 ??? 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, estrogen receptor sfxpbmuo91/25/2017 ??? Bicuspid aortic valve 06/10/2016 ??? Dyspnea on exertion 06/10/2016 ??? Neurogenic claudication due to lumbar spinal stenosis 08/30/2014 ??? Anemia 11/05/2010 ??? Aortic valve stenosis 10/17/2009 ??? Overweight 08/06/2009 ??? Vertigo 10/03/2008 ??? Urinary incontinence 09/29/2007 ??? Iron deficiency anemia 07/08/2006 ??? Thoracic aortic aneurysm without rupture 06/11/2006 ??? Edema 11/05/2005 ??? Leg cramps 04/09/2005 ??? Hypercholesterolemia 01/04/2004 ??? Arthritis 02/10/2003 ??? Sleep disorder 10/14/2002 ??? Fatigue 07/22/2002 ??? Hypothyroidism 05/14/2000 ??? Gastroesophageal reflux disease 04/10/2000 ??? Hypertensive disorder 04/10/2000 Past Medical History: Diagnosis Date ??? A-fib ??? Breast cancer ??? Fracture of tibia 12/2016 left tibial plateau ??? GERD (gastroesophageal reflux disease) ??? H/O non-insulin dependent diabetes mellitus ??? Spinal stenosis Past Surgical History: Procedure Laterality Date ??? BREAST BIOPSY Left 02/25/2017 invasive mucinous ca med grade ??? BREAST LUMPECTOMY Left 03/2017 ??? PRO BX/REMV, LYMPH NODE, DEEP AXILL Left 03/30/2017 BIOPSY OR EXCISION OF LYMPH NODE(S), OPEN, DEEP AXILLARY NODE(S) (WRVU 6.43) performed by Malika Chen MD at [facility] MAIN OR ??? PRO INTRAOP SENTINEL LYMPH ID W/DYE INJECTION Left 03/30/2017 INTRAOPERATIVE ID (MAPPING) SENTINEL LYMPH NODE,INCLUDES INJECTION (WRVU 2.5) performed by Malika Chen MD at [facility] MAIN OR ??? PRO MASTECTOMY PARTIAL Left 03/30/2017 MASTECTOMY PARTIAL (WRVU 10.13) performed by Malika Chen MD at [facility] MAIN OR Social History Tobacco Use ??? Smoking status: Never Smoker ??? Smokeless tobacco: Never Used Substance Use Topics ??? Alcohol use: Yes Comment: social only Social History Substance and Sexual Activity Drug Use Not on file Allergies Allergen Reactions ??? Cat Dander Itching eyes itch, nose runs, and I sneeze Medications: MAR and/or home medications have been reviewed. Physical Exam: Preprocedure Vitals Current as of 01/07/22 1351 No BP, pulse, respiration, SpO2, or temperature recorded. Height: Weight: BMI: IBW: Airway Assessment: Mallampati: I TM distance: >3 FB Neck ROM: full Cardiovascular Assessment: system normal Pulmonary Assessment: pulmonary exam normal Dental Assessment: - normal exam Misc Assessment: IV access: Peripheral line Last Filed Perioperative Cognitive Screening None Anesthesia Plan: ASA 3 general, with a(n) intravenous induction 76 y.o., 91 kg female with hiatal hernia presenting for EGD PMH significant for HTN on lisinopril & Coreg, breast cancer, AFIB, aortic valve stenosis with bicuspid valve, cardiomyopathy, HTN, hypothyroidism, and thoracic aortic aneurysm w/o rupture, RACHAEL on CPAP. On xarelto (held since the ). Denies GERD sxs this AM. Allergies: -- Cat Dander -- Itching -- eyes itch, nose runs, and I sneeze Anesthetic hx: No reported prior complications with anesthesia Airway hx: igel 4 ECHO (2021): normal biventricular function, nl EF, Aortic valve area 1.1, mean gradient 19, dilatedLA, dilated ascending aorta Lab Results Component Value Date HGB 12.3 03/03/2017 PLATELET 156 03/03/2017 NA 141 03/03/2017 K 4.8 03/03/2017 CREATININE 0.95 03/03/2017 No results for input(s): ABORH in the last 7068 hours. Anesthetic Plan: propofol MAC w GETA backup, std monitors, PIVx1 Region - Other Informed Consent: Anesthetic plan and risks discussed with patient. Plan discussed with resident. Anesthesia Screening documented in this encounter Plan of Treatment Not on file documented as of this encounter Visit Diagnoses Not on filedocumented in this encounter Administered Medications Inactive Administered Medications - up to 3 most recent administrations Medication Order MAR Action Action Date Dose Rate Site dexAMETHasone (Decadron) injection Intravenous, PRN, Starting on Thu01/08/22 at 0817, Until Thu01/08/22 at 08, Anesthesia Intra-op, Routine Given 01/08/2022 8:17 AM EDT 8 mg lactated ringers infusion Intravenous, CONTINUOUS PRN, Starting on Thu01/08/22 at 0742, Until Thu01/08/22 at 08, Anesthesia Intra-op New Bag 01/08/2022 7:42 AM EDT ondansetron (pf) (Zofran) (2 mg/mL) injection Intravenous, PRN, Starting on Thu01/08/22 at 0819, Until Thu01/08/22 at 08, Anesthesia Intra-op, Routine Given 01/08/2022 8:19 AM EDT 4 mg PHENYLephrine in NS (PF) (TAVO-SYNEPHRINE) 0.8 mg/10 mL (80 mcg/mL) multi-dose injection Syrg Intravenous, PRN, Starting on Thu01/08/22 at 0750, Until Thu01/08/22 at 08, Anesthesia Intra-op, Routine Given 01/08/2022 8:09 AM EDT 80 mcg Given 01/08/2022 8:03 AM EDT 80 mcg Given 01/08/2022 7:50 AM EDT 80 mcg propofoL (Diprivan) (10 mg/mL) infusion Intravenous, CONTINUOUS PRN, Starting on Thu01/08/22 at 0746, Until Thu01/08/22 at 08, Anesthesia Intra-op, Routine Rate/Dose Change 01/08/2022 7:53 AM EDT 100 mcg/kg/min 54.84 mL/hr Rate/Dose Change 01/08/2022 7:50 AM EDT 150 mcg/kg/min 82. 26 mL/hr New Bag 01/08/2022 7:46 AM EDT 100 mcg/kg/min 54.84 mL/ hr propofoL (Diprivan) 10 mg/mL bolus injection (Anesthesia) Intravenous, PRN, Starting on Thu01/08/22 at 0746, Until Thu01/08/22 at 0826, Anesthesia Intra-op Given 01/08/2022 7:59 AM EDT 75 mg Given 01/08/2022 7:51 AM EDT 60 mg Given 01/08/2022 7:46 AM EDT 50 mg documented in this encounter Care Teams Food Expeditor Relationship Specialty Start Date End Date Ana Her MD [address] [facility] [address] [place] [address] PCP - General 07/29/13 documented as of this encounter
--- OUTSIDE RECORDS SUMMARY | 2023-11-18 15:08 | XMS_ITS | Encounter Summary ---
Author Organization [facility] [place] [address] Care Team Providers Care Strategy Manager Name Role Phone Ana Her MD Primary Care Provider [phone] Reason for Visit * Reason Comments Advice Only BBR * Consultation (Routine) - Closed Specialty Diagnoses / Procedures Referred By Christiano hackett Referred To Contact Plastic Surgery Diagnoses 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, estrogen receptor positive Macromastia Jeanine Lobato APRN [facility] [place] [address] [facility] Plastic Surg [address] [place] [address] Referral ID Status Reason Start Date Expiration Date V isits Requested Visits Authorized [id number] Closed Consult, Test & Treat 06/11/2021 06/11/2022 1 1 Encounter Details Date Type Department Care Team (Late st Contact Info) Description 07/09/2021 8:30 AM EST Office [place] [address] Med Hudson MD [facility] [place] [address] Macromastia Social History Tobacco Use Types Packs/Day [...] Sign Reading Time Taken Comments Blood Pressure - - Pulse - - Temperature - - Respiratory Rate - - Oxygen Saturation - - Inhaled Oxygen Concentration - - Weight 92.1 kg (203 lb) 07/09/2021 8:20 AM EST Height 165.1 cm (5' 5) 07/09/2021 8:20 AM EST Body Mass Index 33.78 07/09/2021 8:20 AM EST documented in this encounter Patient Instructions * Patient Instructions* Angela Camacho RN - 07/09/2021 9:00 AM EST Preoperative Instructions You have been scheduled to have plastic surgery. The instructions below are specific to your procedure. If you are a smoker, we ask that you stop at least 2 months prior to your surgical date and remain nicotine free for at least a month after surgery. Smoking can impair healing and increase your chance of infection. One Month prior to Surgery Schedule a pre-operative physical with your primary care doctor and Silver Miner clearance Two Weeks prior to Surgery Do not take any Aspirin or aspirin containing products for the 2 weeks leading up to surgery. You may resume taking 48 hours after surgery. Do not take medications containing Ibuprofen. Do not take any anti-steroidal's such as Advil, Aleve, Celebrex, Daypro, Indocin, Midol, Motrin, Naproxen, Nuprinand Toradol. These medications increase your risk of bleeding. You may resume taking any of these medications 48 hours after surgery. Stop Vitamin E, Garlic supplements, Ginseng, Fish Oil tablets, Ginkgo and Sanna's Wort and any other herbals. You may resume taking 48 hours after surgery. If you need medication for pain, you may take Tylenol or extra strength Tylenol during this two week period. Medication Specific Instructions WIL Get specific instructions from your prescribing doctor about stopping this medication - Review with prescribing provider One Week prior to Surgery Please call if you feel ill, have cold or fever, have a rash or breaks in the skin near your surgical site. Stay hydrated. Avoid alcohol and recreational drugs Three Days before Surgery Do not shave near your surgical site One Day before Surgery Breast Surgery - Wash your chest and underarms for several minutes the night before and the morningof surgery using an antibacterial soap (Dial or Lever 2000) or Hibiclens wash. The Same Day Surgery Team will call you the business day before your surgery to give you instructions specific to your procedure and your surgical time. Generally, you will be asked not to eat any solids after midnight. You are allowed clear liquids (water, victorina alpesh, apple juice, black coffee andplain tea) until 2 hours prior to your surgery. Day of Surgery You will need a auto carrier driver. If you do not have a auto carrier driver, your surgery will be canceled. DO NOT wear any jewelry, makeup or artificial nails the day of surgery. DO NOT use any lotions, powders or deodorants near or on the surgical site the day of surgery. Do wear comfortable, loose fitting clothes. Anesthesia will meet with you the morning of surgery. They will perform an assessment and review your history with you. If you are 40 years old or older, please remember to have a mammogram with in one year prior to your upcoming breast reduction surgery as we advise not having a mammogram for at least six months after surgery. Contact Information: During regular office hours (Thursday- Thursday, non-holiday 8:00 am- 5:00 pm) For an appointment or insurance questions [phone] For questions pertaining to your surgical date [phone] For nursing related questions [phone] On weekends, holidays or after office hours: Call and ask the hydraulic pile hammer operator to page the Plastic Surgery Resident mohs surgeon/general dermatologist. documented in this encounter Progress Notes * Med Hudson MD - 07/09/2021 8:30 AM EST Plastic Surgery Consultation Note Med Hudson MD. PCP: Ana Her MD Requesting Physician: as above Reason for office visit: Symptomatic macromastia HPI: Digna Olson is a 75 y.o. female who presents today for evaluation of symptomatic macromastia. Her PCP is Ana Her MD and has requested the consultation. She is unaccompanied for today???s visit. She admits to having back, neck, and shoulder pain. She admits to having rashes beneath her breasts. She admits to having painful grooves in her shoulders from the weight of her breasts. Shehas gone to physical therapy for her pain with some relief. She has seen a chiropractor with no relief. She admits to having a hard time finding bra's that fit. She has taken NSAIDS to help with the pain that her breasts cause her with some relief. She admits to having a history of breast cancer, AFIB with RVR, aortic valve stenosis, bicuspid aortic valve, cardiomyopathy, HTN, hypothyroidism, and thoracic aortic aneurysm w/o rupture. Her most recent mammogram was 06/11/21 and was normal. [place] [facility] [place] She has completed a breast specific questionnaire: Pertinent findings to emphasize are: No flowsheet data found. Breast Q Reduction PreOp 07/09/2021 Satisfaction with Breast 0 Psychosocial Wellbeing 45 Physical Well-being 49 How your breast size matches the rest of your body? Somewhat dissatisfied The size of your breasts? Very dissatisfied The shape of your breasts when you are wearing a bra? Very dissatisfied How equal in size your breasts are to each other? Very dissatisfied How comfortably your bras fit? Somewhat dissatisfied The shape of your breasts when you are not wearing a bra? Very dissatisfied How you look in the mirror clothed? Very dissatisfied How your breasts sit/hang on your chest? Somewhat dissatisfied How normal your breasts look? Somewhat dissatisfied How you look in the mirror unclothed? Very dissatisfied Confident in a social setting? Some of the time Of equal worth to other women? Some of the time Good about yourself? Most of the time Self-assured? Most of the time Confident in your clothes? Some of the time Accepting of your body? Some of the time That your appearance matches who you are inside? A little of the time Confident about your body? A little of the time Attractive? A little of the time Headaches? None of the time Pain in your breast area? None of the time Lack of energy? Some of the time Difficulty doing vigorous physical activities (e.g. running or exercising)? All of the time Feeling physically unbalanced? All of the time Shoulder pain? Some of the time Difficulty sleeping because of discomfort in your breast area? None of the time Neck pain? Some of the time Painful gouges or grooves in your shoulders from your bra straps? All of the time Feeling physically uncomfortable? Some of the time Rashes under your breasts? Some of the time Back pain? All of the time Arm pain? Some of the time Pain, numbness or tingling in your hands because of your breast size? None of the time Conservative Therapy Treatments: [facility] CONSERVATIVE THERAPY TREATMENTS 07/09/2021 Physical therapy was effective at relieving my symptoms. Some Relief How many months did you try this treatment? More than 6 months Use of custom support bras relieved my symptoms. No Relief How many months did you try this treatment? More than 6 months Treatment by a chiropractor relieved my symptoms. No Relief How many months did you try this treatment? More than 6 months Weight loss relieved my symptoms. Some Relief How many months did you try this treatment? 3 to 6 months Non-narcotic medications (such as Tylenol, Aspirin, Ibuprofen, Aleve, etc) have relieved my symptoms. Some Relief How many months did you try this treatment? More than 6 months Narcotic pain relievers (such as Tylenol #3, Percocet, etc) have relieved my symptoms. Some Relief How many months did you try this treatment? Less than 3 months Other Treatments have relieved my symptoms. No Relief How many months did you try this treatment(s)? More than 6 months Over the counter or prescription medication has relieved the rashes under my breasts. Never Tried Past Medical History: Diagnosis Date ??? A-fib [...] 6.43) performed by Malika Chen MD at [facility] MAIN OR ??? PRO INTRAOP SENTINEL LYMPH ID W/DYE INJECTION Left 03/30/2017 INTRAOPERATIVE ID (MAPPING) SENTINEL LYMPH NODE,INCLUDES INJECTION (WRVU 2.5) performed by Malika Chen MD at [facility] MAIN OR ??? PRO MASTECTOMY PARTIAL Left 03/30/2017 MASTECTOMY PARTIAL (WRVU 10.13) performed by Malika Chen MD at [facility] MAIN OR Family History Problem Relation Age of Onset ??? Deep Vein Thrombosis Sister ??? Osteoporosis Sister ??? Arthritis Sister ??? Suicide Brother ??? Rectal Cancer Maternal Grandfather At a young age ??? Pancreatic Cancer Maternal Aunt Early 40's? Breast Cancer Maternal Cousin 40 daughter to affected M Aunt) ??? Pancreatic Cancer Maternal Cousin 60s ??? Pancreatic Cancer Maternal Cousin Whipple surgery ??? Prostate Cancer Maternal Cousin ??? Prostate Cancer Maternal Cousin ??? Leukemia Maternal Cousin ??? Heart Disease Maternal Cousin ??? Ovarian Cancer Neg Hx ROS: HEENT, GI, /Renal, Psych, Card, Pulm, Endo, Heme, Immun, Neuro: negative Examination: BMI: Ht 165.1 cm (5' 5) Wt 92.1 kg (203 lb) BMI 33.78 kg/m?? BSA: Body surface area is 2.06 meters squared. General: On my examination today, the patient appears to be in good health. Her emotional outlook is positive and she asked appropriate questions throughout the visit. Left breast > Right breast by approx 200 gms Breast Measurements Right Left Ptosis Grade II-III Grade II-III SN-N (cm) 33cm 36.5cm IMF-N (cm) 16cm 15cm Breast Vol (estimate in cc) 1200cc 1500cc Resection (estimate in gms) 600gms 800gms Impression: Symptomatic bilateral breast hypertrophy. Bilateral breast reduction is indicated for relief of her breast-related symptoms. She watched the ARNULFO video on breast reduction, and was provided with an ASPS brochure and informed consent on breast reduction. It reviews the surgical risks, alternate skin incisions and pedicle versus free nipple graft techniques. It also discusses the optionof volume reduction by liposuction alone, which does not alter the nipple- areolar complex position.It talks about the impact of this surgery on decreasing breast cancer risk. We reviewed the timing of surgery relative to weight fluctuations and I've advised that surgery is best done at a realistic [place] [facility] stable weight. We talked about the outpatient nature of the surgery, drains, postoperative recovery, and time required off work. The following risks were reviewed in the video or in our discussion: Surgical Risks which are greater with open reduction: bleeding with risk of hematoma (<5%); numbness, which may be temporary or permanent; scarring, including abnormal scarring; infection (5-10%);fat necrosis resulting in a breast mass and possible need for revision. I stressed the likelihood of minor problems with delayed wound healing (~30%) and the rare complication of nippleareolar necrosis. She is also aware that there may be some residual pain after the surgery and that there may possibly be some asymmetry. Vertical or Lollipop Incision: Less scarring on breast, but slightly greater risk for delayed healing and desire for scar revision. (She was informed that her insurer might not cover secondary revisions for scarring or asymmetry.) Garcia or Jennings Pattern Incision: More scarring on breast, but lower risk for scar revision. (She was informed that her insurer might not cover secondary revisions for scarring or asymmetry.) Pedicle Technique: volume of reduction may be limited by need to provide an adequate blood supply to the nipple. There is a very small risk of nipple loss. Most women (~60%) will be able to breast-feed. Free Nipple Graft: The grafts will initially have no sensation and once fully healed may not respond to temperature and touch as they do now. She has also been informed that they may not look entirely normal and may have patchy hypopigmentation. She will not be able to breast feed with this technique. After fully discussing the options, she has opted to pursue a: X Bilateral Breast Reduction Garcia, Pedicle Bilateral Breast Reduction Garcia, FNG Anticipated resection: 600 grams right breast and 800 grams left breast BSA [employer]/[place] All other / Schnur 2.06 2.05 1000 [id number] She would like to proceed with surgery and I will inform her PCP of this plan. Photos taken today with informed signed consent Plan: 1. Schedule surgery. 2. PCP clearance. 3. Cardiac clearance. Surgery Booking Information: Surgeon: Freed Duration: 2.5 hours Timeframe: Elective Procedure: Bilateral breast reduction CPT: 16404 Surgical Technique: Garcia, Pedicle Surgical site: Breasts Side: Bilateral Anesthesia: General Follow up: 1 day for drain removal; 7-10 days for HCK PAT: H+P PCP, Cardiac clearance. Need to discontinue blood thinners pre-op? Xarelto documented in this encounter Plan of Treatment Not on file documented as of this encounter Visit Diagnoses Diagnosis Macromastia Hypertrophy of breast documented in this encounter Care Teams Strategy Manager Relationship Specialty Start Date End Date Ana Her MD [address] [place] [address] PCP - General 07/29/13 documented as of this encounter
--- OUTSIDE RECORDS SUMMARY | 2023-11-18 15:08 | XMS_ITS | Encounter Summary ---
Author Organization [facility] [place] [address] Care Team Providers Care Oven Loader Name Role Phone Ana Her MD Primary Care Provider [phone] Reason for Visit * Consultation (Routine) - Closed Specialty Diagnoses / Procedures Referred By Christiano hackett Referred To Contact General Surgery Diagnoses Hiatal hernia Ana Her MD [address] [place] [address] [facility] [address] [place] [address] Referral ID Status Reason Start Date Expiration Date V isits Requested Visits Authorized [id number] Closed Consult, Test & Treat 09/23/2021 09/23/2022 6 6 Encounter Details Date Type Department Care Team (Latest Contact Info) Description 12/05/2021 3:00 PM EDT Office [place] [address] Laura Will MD [facility] [place] [address] Paraesophageal hernia Social History Tobacco Use Types Packs/Day [...] Sign Reading Time Taken Comments Blood Pressure 150/71 12/05/2021 2:59 PM EDT Pulse 67 12/05/2021 2:59 PM EDT Temperature - - Respiratory Rate 16 12/05/2021 2:59 PM EDT Oxygen Saturation 98% 12/05/2021 2:59 PM EDT Inhaled Oxygen Concentration - - Weight 91.4 kg (201 lb 8 oz) 12/05/2021 2:59 PM EDT Height 165.1 cm (5' 5) 12/05/2021 2:59 PM EDT Body Mass Index 33.53 12/05/2021 2:59 PM EDT documented in this encounter Progress Notes * Laura Will MD - 12/05/2021 3:00 PM EDT Digna Olson is a 76 y.o. female referred by Ana Her MD for evaluation of symptomatic paraesophageal hernia and consideration for surgical management. She describes a many year history of heartburn, in addition to a 1 year history of early satiety and occasional nausea. Her symptoms are otherwise summarized as follows: [...] - nausea, no vomiting Diarrhea/constipation - No Prior EGD/imaging - 09/03/21 CT chest: Type III hiatal hernia with organoaxial rotation without evidence of obstruction. Most of stomach in chest. No endoscopy - 15 or 20 years Past Medical History: Patient Active Problem List Diagnosis Code ??? Neurogenic claudication due to lumbar spinal stenosis M48.062 ??? 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 Anemia D64.9 ??? Aortic valve [...] ??? Vertigo R42 ??? Cardiomyopathy, nonischemic I42.8 Past Surgical History: Procedure Laterality Date ??? BREAST BIOPSY Left 02/25/2017 invasive mucinous ca med grade ??? BREAST LUMPECTOMY Left 03/2017 ??? PRO BX/REMV, LYMPH NODE, DEEP AXILL Left 03/30/2017 BIOPSY OR EXCISION OF LYMPH NODE(S), OPEN, DEEP AXILLARY NODE(S) (WRVU 6.43) performed by Malika Chen MD at [facility] OR ??? PRO INTRAOP SENTINEL LYMPH ID W/DYE INJECTION Left 03/30/2017 INTRAOPERATIVE ID (MAPPING) SENTINEL LYMPH NODE,INCLUDES INJECTION (WRVU 2.5) performed by Malika Chen MD at [facility] OR ??? PRO MASTECTOMY PARTIAL Left 03/30/2017 MASTECTOMY PARTIAL (WRVU 10.13) performed by Malika Chen MD at [facility] OR Cholecystectomy Medications: Current Outpatient Medications: ??? spironolactone (Aldactone) 25 [...] 20 mg by mouth daily., Disp: ,Rfl: Allergies: Cat dander Family History: Family History Problem Relation Age of Onset [...] Maternal Cousin ??? Ovarian Cancer Neg Hx Social History: reports that she has never smoked. She has never used smokeless tobacco. She reports current alcohol use. Rare etoh Review of systems is negative for any unexplained weight loss or weight gain. She denies any cough,chest pain or shortness on breath on exertion. Climbs stairs at home. She denies headaches, dizziness, weakness, numbness or ataxia. Bowel and bladder elimination is normal. All other system reviews are negative. Patient Vitals for the past 24 hrs: Pulse Resp BP SpO2 12/05/21 1459 67 16 150/71 98 % Body mass index is 33.53 kg/m??. On physical examination, this is a well appearing female. There is no scleral or skin icterus. Mucous membranes are moist and her pupils reactive. Her lungs are clear to auscultation. Heart is regular, rate, and rhythm and without murmurs. Her abdomen is nontender and without palpable masses. Her extremity and neurological exam are grossly normal. Impression: Symptomatic paraesophageal hernia. Risks of volvulus, ulceration and anemia were discussed. I believe Ms. Olson is an appropriate candidate for laparoscopic paraesophageal hernia repair and fundoplication. The majority of this visit was spent [...] with time. We discussed the risk ofrecurrence. She would like to think about whether to go forward with surgery. In the interim, we agreed to moveforward with an upper endoscopy. I will follow up with her afterward to finalize a surgical plan. documented in this encounter Plan of Treatment Not on file documented as of this encounter Visit Diagnoses Diagnosis Paraesophageal hernia Diaphragmatic hernia without mention of obstruction or gangrene documented in this encounter Care Teams Oven Loader Relationship Specialty Start Date End Date Ana Her MD [address] [place] [address] PCP - General 07/29/13 documented as of this encounter
--- OUTSIDE RECORDS SUMMARY | 2023-11-18 15:08 | XMS_ITS | Encounter Summary ---
Author Organization [facility] [place] [address] Care Team Providers Care Legal Assistant Name Role Phone Ana Her MD Primary Care Provider Reason for Visit * Reason Comments Follow-up Encounter Details Date Type Department Care Team (Late st Contact Info) Description 11/29/2019 2:45 PM EDT Office Visit H[place]ology [place] [phone] Ricky Lowry MD [facility] HEMATOLOGY/[place] [address] Malignant neoplasm of lower-outer quadrant of left [...] Sign Reading Time Taken Comments Blood Pressure 140/59 11/29/2019 2:48 PM EDT Pulse 76 11/29/2019 2:48 PM EDT Temperature 36.5 ??C (97.7 ??F) 11/29/2019 2:48 PM ED T Respiratory Rate 18 11/29/2019 2:48 PM EDT Oxygen Saturation 97% 11/29/2019 2:48 PM EDT Inhaled Oxygen Concentration - - Weight 98.4 kg (217 lb) 11/29/2019 2:48 PM EDT Height 167.6 cm (5' 6) 11/29/2019 2:48 PM EDT Body Mass Index 35.02 11/29/2019 2:48 PM EDT documented in this encounter Progress Notes * Ricky Lowry MD - 11/29/2019 2:45 PM EDT Breast cancer follow-up HPI: Diagnosis of breast [...] cancer cells with immunostaining) Stain intensity: Strong OR immunoreactivity: Positive (>90% cancer cells with immunostaining) [...] ??Excision with image-guided localization ?Lymph Node Sampling: ??Ideal lymph node(s) ?Specimen Laterality: ??Left Tumor ?Histologic [...] ??DCIS not present in specimen Lymph Nodes ?Ideal Lymph Nodes: Ideal lymph node biopsy performed ?Number of Ideal Nodes Examined: ??3 ?Number of Lymph Node(s) [...] Spinal stenosis > A Fib. [place] at [facility]. S/P successful cardioversion May 2018. DEXA scan [...] Mother had no cancer. Interval Hx/ROS: She reports that she has no side effects from anastrazole. Has been having some left knee pain whengetting up for past few weeks, but thinks this isn't due to anastrazole. Takes tylenol for this andplans to review/discuss with her orthopedic doc. No new problems with VELEZ, diplopia, cough, SOB, other new pain (no change in chronic arthritic pain), fevers, bleeding, nausea, change in bowel or bladder function. No change in chronic balance problems (uses cane). ROS otherwise neg. Exam: Most Recent Vitals: 11/29/19 1448 BP: 140/59 Pulse: 76 Resp: 18 Temp: 36.5 ??C (97.7 ??F) SpO2: 97% PERRL, EOMi, sclera nonicteric No MARLEE No spine tenderness Chest: clear to A and P Breasts without mass or nipple/skin change CV: Reg, no murmurs Abd: NT, no HSM, +BS Ext: no c/c/e Neuro: grossly nonfocal. 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 She is now status post partial mastectomy and sentinel node biopsy. Her invasive tumor was 6 mm in largest dimension. There was no angiolymphatic invasion and nodes were negative. Tumor was strongly positive forboth of these estrogen and progesterone receptors. HER2 is negative. pT1N0. At our initial visit we discussed the components of managing invasive breast cancers. I focused on the role of systemic adjuvant therapy in the management of breast cancer. This context we discussed adjuvant endocrine therapy. Given her pathologic features I did not recommend chemotherapy. She declined radiation therapy. Anastrazole started April 2017, which she continues to take. Clinically she is TACHO. All questions answered. We will see her back in roughly 6 months with screening mammo. Next DEXA in1 year. 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
--- OUTSIDE RECORDS SUMMARY | 2023-11-18 15:08 | XMS_ITS | Encounter Summary ---
[place] [address] Care Team Providers Care Word Processing Operator Name Role Phone Ana Her MD Primary Care Provider [phone] Encounter Details Date Type Department Care Team (Late st Contact Info) Description 06/12/2021 Telephone [place] [phone] Chelsie Lauren Social History Tobacco Use Types [...] on filedocumented in this encounter Care Teams Word Processing Operator Relationship Specialty Start Date End Date Ana Her MD [address] [place] [address] PCP - General 07/29/13 documented as of this encounter
--- OUTSIDE RECORDS SUMMARY | 2023-11-18 15:08 | XMS_ITS | Encounter Summary ---
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 Procedures DXA Central Spine, Hip, and/or Whole Body (Generic) Ricky Lowry MD [facility] HEMATOLOGY/[place] [address] [facility] Rad Xray [address] [place] [address] [place] [address] Referral ID Status Reason Start Date Expiration Date V isits Requested Visits Authorized [id number] Closed Specialty Service Requested 05/22/2020 11/19/2021 1 1 Reason for Visit * Diagnostic Test (Routine) - Closed Specialty Diagnoses / Procedures Referred By Contac t Referred To Contact Radiology Diagnoses 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, estrogen receptor positive Osteopenia of neck of femur, unspecified laterality 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 Procedures DXA Central Spine, Hip, and/or Whole Body (Generic) Ricky Lowry MD [facility] HEMATOLOGY/[place] [address] [facility] Rad Xray [address] [place] [address] [place] [address] Referral ID Status Reason Start Date Expiration Date V isits Requested Visits Authorized [id number] Closed Specialty Service Requested 05/22/2020 11/19/2021 1 1 Encounter Details Date Type Department Care Team (Latest Contact Info) Description 11/15/2020 2:25 PM EDT - 11/15/2020 11:59 PM EDT Hospital Encounter XRay at [address] [place] [address] Ricky Lowry MD [facility] HEMATOLOGY/[place] [address] 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 omega 3-amc-oql-fish-turm salty 417 mg-120 mg- 276 mg-600 mg Capsule Take by mouth. 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 Paper copies will be sent to providers without Webshoz- access. If you have received this report without the data sheet and do not have access to [employer], please contact Radiology [facility] at [phone] Thursday thru Thursday 8am-4pm. Thank you for letting us participate in the care of this patient. ??If you are a health care provider and have any questions regarding this report, please contact the number below. ??For patients who have questions please contact the health health care aide that requested your imaging first. ? Electronically signed by: Nat Epperson MD, [facility] ([phone]), at 11/19/2020 1:09 PM Narrative 11/19/2020 1:09 [...] BMD measurements and plots are available in EVcommerceunder the imaging tab. Paper copies will be sent to providers without [employer] access.If you have received this report without the data sheet and do not haveaccess to [employer], please contact Radiology Switchboard Clerk at [phone] Thursday thr 8am-4pm. Thank you for letting us participate in the care of this patient. If youare a health care provider and have any questions regarding this report,please contact the number below. For patients who have questions please contactthe health health care aide that requested your imaging first. 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
--- OUTSIDE RECORDS SUMMARY | 2023-11-18 15:08 | XMS_ITS | Encounter Summary ---
[place] [address] Care Team Providers Care Authorization Representative Name Role Phone Ana Her MD Primary Care Provider [phone] 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 * Consultation (Routine) - Closed Specialty Diagnoses / Procedures Referred By Christiano hackett Referred To Contact General Surgery Diagnoses Hiatal hernia Ana Her MD [address] [place] [address] [facility] Gen Surgery [address] [place] [id number] Referral ID Status Reason Start Date Expiration Date V isits Requested Visits Authorized [id number] Closed Consult, Test & Treat 09/23/2021 09/23/2022 6 6 Encounter Details Date Type Department Care Team (Late st Contact Info) Description 09/23/2021 Transcribe Orders eDH Incoming Referrals [phone] Ana Her MD [address] [place] [address] Hiatal hernia Social History Tobacco Use Types Packs/Day [...] as of this encounter Plan of Treatment Scheduled Referrals Name Type Priority Associated Diagnoses Orde r Schedule Referral to General Surgery Outpatient Referral Routine Hiatal hernia Ordered: 09/23/2021 documented as of this encounter Visit Diagnoses Diagnosis Hiatal hernia Diaphragmatic hernia without mention of obstruction or gangrene documented in this encounter Care Teams Authorization Representative Relationship Specialty Start Date End Date Ana Her MD [address] [place] [address] PCP - General 07/29/13 documented as of this encounter
--- OUTSIDE RECORDS SUMMARY | 2023-11-18 15:08 | XMS_ITS | Encounter Summary ---
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, estrogen receptor positive; 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 Social History [...] Sign Reading Time Taken Comments Blood Pressure 128/77 06/11/2021 11:00 AM EST Pulse 65 06/11/2021 11:00 AM EST Temperature 36.3 ??C (97.3 ??F) 06/11/2021 11:[address] Respiratory Rate 18 06/11/2021 11:00 AM EST Oxygen Saturation 96% 06/11/2021 11:00 AM EST Inhaled Oxygen Concentration - - Weight 92.8 kg (204 lb 9.6 oz) 06/11/2021 11:00 AM EST Height 165.4 cm (5' 5.1) 06/11/2021 11:00 AM ES T Body Mass Index 33.94 06/11/2021 11:00 AM EST documented in this encounter Progress Notes * Laura Joaquin PA - 06/11/2021 11:00 AM EST Breast cancer follow-up HPI: Diagnosis [...] cancer cells with immunostaining) Stain intensity: Strong LA immunoreactivity: Positive (>90% cancer cells with immunostaining) [...] ??Excision with image-guided localization ?Lymph Node Sampling: ??Wilber lymph node(s) ?Specimen Laterality: ??Left Tumor ?Histologic [...] ??DCIS not present in specimen Lymph Nodes ?Wilber Lymph Nodes: Wilber lymph node biopsy performed ?Number of Wilber Nodes Examined: ??3 ?Number of Lymph Node(s) Examined (sentinel and nonsentinel): 3 ?Lymph Node Involvement: None identified Stage (pTNM) ?Pathological Stage: ?? pT1b pN0 She declined radiation oncology. April 2017 started adjuvant endocrine therapy with anastrazole. PMH: A-fib, aortic valve stenosis, cardiomyopathy, thoracic aortic aneurysm, T2DM, hypothyroidism, spinal stenosis, OA Past Medical History: Diagnosis Date ??? Breast cancer ??? Fracture of tibia 12/2016 left tibial plateau ??? GERD (gastroesophageal reflux disease) ??? H/O non-insulin dependent diabetes mellitus ??? Spinal stenosis > A Fib. Cardiology at [facility]. S/P successful cardioversion May 2018. DEXA scan November 2018: normal bone density. There is no history of thromboembolic events. Soc Hx: She lives alone. Son lives nearby. Fam Hx: Notable for a maternal first cousin with breast cancer diagnosed in her 40s (). In addition that cousin's sister has had pancreatic cancer as did a brother. These cousins are related to Ms. Olson via a maternal uncle. Maternal grandfather had rectal cancer. Her sister has had a pulmonary embolus. Mother had no cancer. Interval Hx/ROS: Digna is here for 6-month follow-up. She continues to tolerate anastrozole without any evident side effects. She has chronic back pain/compression fractures. Recent nerve master was helpful. Surgery not recommended. Gets COLÓN and leg swelling due to heart issues. No CP. Chronic abdominal bloating andnausea improved. Neuropathy has worsened and she has stopped driving. Gets occ right leg pain, not sciatica. No new problems with breast lumps, frequent VELEZ, diplopia, cough, SOB at rest, fevers, bleeding, change in bowel or bladder function. No change in chronic balance problems (uses cane). ROS otherwise neg. Exam: Visit Vitals BP 128/77 (Patient Position: Sitting) Pulse 65 Temp 36.3 ??C (97.3 ??F) (Temporal) Resp 18 Ht 165.4 cm (5' 5.1) Wt 92.8 kg (204 lb 9.6 oz) SpO2 96% BMI 33.94 kg/m?? Wt Readings from Last 3 Encounters: 06/11/21 92.8 kg (204 lb 9.6 oz) 11/15/20 94.5 kg (208 lb 5.4 oz) 05/22/20 99 kg (218 lb 3.2 oz) EOMi, sclera nonicteric Pulm: breathing comfortably on RA Breasts: deferred (examined by surgery METAL SHEET ROLLER OPERATOR today) Neuro: grossly nonfocal. Results: Last DXA 11/15/20 - stable mild osteopenia Today's bilat screening mammo: benign Assessment/Rec: 75 y.o. 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 She is now status post partial mastectomy and sentinel node biopsy. Her invasive tumor was 6 mm in largest dimension. There was no angiolymphatic invasion and nodes were negative. Tumor was strongly positive for both of these estrogen and progesterone receptors. HER2 is negative. pT1bN0. Given her pathologic features, chemotherapy not recommended. She declined radiation therapy. Anastrozole started April 2017, which she continues to take. Clinically she is TACHO. #Breast cancer - Continue anastrozole. She will complete 5 years of therapy in April 2022. I did not recommend >5 years of therapy given low risk breast cancer and her comorbidities. - Mammo UTD #Bone health - Last DEXA 11/21, stable - Taking ca and vit D All questions answered. F/U in 1 yr, coordinated with surgery. After next f/u can switch to having only annual f/u and mammograms with surgery. Total time spent on the date of the encounter: 25 minutes (Includes time spent reviewing prior notes and tests, obtaining a history, performing an exam, counseling and education, coordination of care, ordering medications/tests, placing referrals, interpreting results, and documenting in the chart). Laura Joaquin PA-C Medical Oncology - Breast & GI Cancers [facility] Pager - [phone] No future appointments. 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
--- OUTSIDE RECORDS SUMMARY | 2023-11-18 15:08 | XMS_ITS | Encounter Summary ---
[place] [address] Care Team Providers Care Subway Train Operator Name Role Phone Ana Her MD Primary Care Provider [phone] Reason for Visit * Reason Comments Follow-up Encounter Details Date Type Department Care Team (Late st Contact Info) Description 05/22/2020 11:40 AM EST Office Visit [place] [address] Jeanine Lobato APRN 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 Patient ID: Digna Olson is a 74 y.o. female HPI: Alma Delia is a [...] No new bony pain or tenderness. She was found to have a compression fracture in her lumbar spine in February. She is still dealing with pain from that, which has negatively impacted her activity. She has done PT and is now doing it independently. Scheduled for a spinal injection in July. Breast cancer history: Alma Delia presented for screening mammography in February,. This revealed a possible asymmetry in the lower outer left breast. Right breast was normal. Call back views and US confirmed a solid 4mm mass at 5:00 in the left breast. Biopsy was obtained which revealed IDC which is ER/MN positive, Her2 negative. Alma Delia opted against XRT given no significant difference in survival, but started taking anastrozole in April 2017 which she is tolerating well. Surgical Pathology: 03/30/17 Surgery A,B - See Synoptic C - Left breast, Deep/lateral margin re-excision: Benign fatty breast tissue D - Left breast, Superficial margin re-excision: Benign fatty breast tissue A - Left axilliary sentinel node B - Left breast partial mastectomy Specimen ?Procedure: ??Excision with image-guided localization ?Lymph Node Sampling: ??[place] lymph node(s) ?Specimen Laterality: ??Left Tumor ?Histologic [...] ??DCIS not present in specimen Lymph Nodes ?[place] Lymph Nodes: [place] lymph node biopsy performed ?Number of [place] Nodes Examined: ??3 ?Number of Lymph Node(s) Examined (sentinel and nonsentinel): 3 ?Lymph Node Involvement: None identified Stage (pTNM) ?Pathological Stage: ?? pT1b pN0 Comprehensive Breast Program Surgery Follow Up: Range of motion of surgical arm complete Lymphedema present No Cosmesis-surgeon reported Cosmesis-patient reported Excellent Excellent Local or regional recurrence No Contralateral cancer present No Distant recurrence present No Date of last follow up 05/31/2019 Breast Cancer Risk Factors: History Age at delivery of first child 19 yo Breast fed No Oral contraceptive use Yes Menarche age 12 yo LMP 40s Hormone replacement therapy Yes, less than 1 yr Family history of breast cancer Maternal cousin in her 30s. at 75 from metastatic cancer Family history of ovarian cancer No Known genetic mutation Not tested Family History Problem (# of Occurrences) Relation (Name,Age of Onset) Breast Cancer (1) Maternal Cousin (Lucille, 40): daughter to affected M Aunt) Leukemia (1) Maternal Cousin (Kofi) No Known Problems (1) Maternal Cousin (Pam) Pancreatic Cancer (3) Maternal Aunt: Early 40's?, Maternal Cousin (Nel), Maternal Cousin (Dario): Whipple surgery Pancreatitis (1) Maternal Cousin (Lucille) Prostate Cancer (1) Maternal Cousin (Kofi) Rectal Cancer (1) Maternal Grandfather: At a young age Negative family history of: Ovarian Cancer Social Hx: She continues to live alone. She has a son that lives about 20 minutes away. She and herex- speak almost daily. He lives in [place] and is beginning to show early signs of dementia. She enjoys reading and cooking. She does not smoke and drinks alcohol socially. Past Medical Hx: A-fib, aortic valve stenosis, cardiomyopathy, thoracic aortic aneurysm, T2DM, hypothyroidism, spinal stenosis, OA Physical Exam: General appearance: Alert, well-developed, well-nourished female in no acute distress. Skin: Warm and dry. Head: Normocephalic, atraumatic. Neck: Soft and supple without adenopathy. Cardiovascular: Normal rate, regular rhythm. No murmur heard. Pulmonary: Effort normal and breath sounds normal. [...] situation. Results: Imaging performed (bilateral mammogram) at [facility] [place] shows no evidence of malignancy, BIRADS Category 2 with mainly fatty replaced breasts with post surgical changes on the left. The results were reviewed with her at today's appointment. [...] - Mammo Screening Cad and Robe Bilateral; May 2021 I have discussed my assessment and recommendations [...] that appointment. She agrees to this plan. Routine recommendations discussed with the patient including importance of regular moderate intensity exercise, nutrition, decreasing cardiovascular risk, and optimizing weight. Nonpharmacologic measures that she can take to decrease her risk of developing breast cancer include the following: ?? Get at least 30 minutes of moderate intensity physical activity above normal activity on most days of the week to reduce the risk of chronic disease in adulthood. Walking is a good choice. You also may want to do other activities, such as running, swimming, cycling, or playing tennis or team sports. ?? Do strength training exercises at least twice a week to maintain muscle and bone health. ?? Drink alcohol in moderation, if at all. That means no more than 1 drink a day for women or 2 perday for men. ?? Make healthy eating choices: fruits and vegetables, lean protein, and healthy fats. Minimize simple carbohydrates, sugars, and processed foods. ?? Normal BMI < 25 for individuals under 65 years old; 22-30 for > 65 years old. ?? Be cautious about exposure risk, both what you put in and on your body (ie: artificial fragrances, artificial dyes, as well as certain ingredients in makeup, hair and body care, antiperspirant, laundry detergent, fabric softener, dryer sheets, etc.). The nations ban over 1,300 ingredients from personal care products. Unfortunately, the [place] only bans 30 products. Apps to help make healthier choices for personal care products are available at EWG (Environmental Working Group) and [employer]. All questions were answered to the patient's satisfaction and they state understanding and agreement with today's treatment plan. They are encouraged to follow up sooner if they develop any new or concerning symptoms. Jeanine Lobato APRN Surgical Oncology P [phone] F [phone] [facility] documented in this encounter Plan of Treatment Not on file documented as of this encounter Results * Mammo Screening Cad and Robe [...] who have questions please contact the health daycare provider that requested your imaging first. ? 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
--- OUTSIDE RECORDS SUMMARY | 2023-11-18 15:08 | XMS_ITS | Encounter Summary ---
[place] [address] Care Team Providers Care Hydraulic Billet Maker Name Role Phone Ana Her MD Primary Care Provider [phone] Encounter Details Date Type Department Care Team (Late st Contact Info) Description 12/24/2021 Telephone [place] [id number] Chelsie Lauren Social History Tobacco Use Types [...] on filedocumented in this encounter Care Teams Hydraulic Billet Maker Relationship Specialty Start Date End Date Ana Her MD [address] [place] [address] PCP - General 07/29/13 documented as of this encounter
--- OUTSIDE RECORDS SUMMARY | 2023-11-18 15:08 | XMS_ITS | Encounter Summary ---
Author Organization [facility] [place] [address] Care Team Providers Care Hot Bread Baker Name Role Phone Ana Her MD Primary Care Provider [phone] Encounter Details Date Type Department Care Team (Latest Contact Info) Description 05/31/2019 10:16 AM EST - 05/31/2019 11:59 PM [facility] Encounter Mammography/[place] [id number] Jeanine Lobato APRN [facility] [place] [address] History of breast cancer Discharge Disposition: Home Social History [...] Sig Dispensed Refills Start Date End Date levothyroxine (Synthroid) 100 mcg Tablet 04/29/2019 allopurinol [...] Tablet Take 40 mg by mouth daily. rivaroxaban (XARELTO ORAL) Take by mouth. 02/26/2022 anastrozole (Arimidex) 1 mg TabletIndications:M alignant neoplasm of lower-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, estrogen receptor positive Take 1 tablet by mouth daily. 90 tablet 3 05/31/2019 05/22/2020 metoprolol succinate XL (Toprol-XL) 50 mg Tablet Sustained Release 24 hr Take 25 mg by mouth Daily. 06/14/2018 05/22/2020 omeprazole (PriLOSEC) 40 mg Capsule, Delayed Release(E.C.)Indica tions:gastroesophag eal reflux disease Take 20 mg by mouth daily. Indications: gastroesophageal reflux disease 05/15/2018 12/05/2021 spironolactone (ALDACTONE) 25 mg Tablet Take 25 [...] MAMMO SCREENING CAD AND JERAMY BILATERAL Routine 05/31/2019 11:03 AM EST History of breast cancer documented in this encounter Results * Mammo Screening Cad and Jeramy Bilateral (05/31/2019 11:03 AM EST) Anatomical Region Laterality Modality Breast Bilateral Mammography Narrative 05/31/2019 11:38 AM EST BILATERAL MAMMOGRAPHY REASON FOR EXAM: routine screening. 73-year-old female, history of left breast invasive mucinous carcinoma, 2017, lumpectomy. TECHNIQUE: CC and MLO views were obtained of each breast using standard 2-D mammography as well as 3-D tomosynthesis. Computer aided detection was used. Comparison: This is compared with prior images. FINDINGS: The breasts are almost entirely fatty. There are no suspicious microcalcifications, masses, or areas of distortion. The pattern is stable. Stable benign-appearing focal asymmetries. CONCLUSION: No mammographic evidence of malignancy. RECOMMENDATION: Routine screening. A result letter has been sent to this patient by [facility]. BIRADS CATEGORY 2: Benign findings. * ??The [place] [employer] and The Society of Breast Imaging recommend annual screening beginning at age 40 for the general female population. * ??Screening should continue as long as a woman is in good health and is expected to live 10 more years or longer. * ??All women should be familiar with the known benefits, limitations, and potential harms linked to breast cancer screening. They also should know how their breasts normally look and feel and report any breast changes to a health care provider right away. * ??Some women, because of their family history, a genetic tendency, or certain other factors, should be screened with MRIs along with mammograms. (The number of women who fall into this category is very small.) The patient and health care provider should discuss the patient history and decide if earlier screening and breast MRI are appropriate. Thank you for letting us participate in the care of this patient. For questions regarding this report, please contact the number below. ? Jeanine Lobato APRN IMG MAMMO ORD ERABLES documented in this encounter Visit Diagnoses Diagnosis History of breast cancer Personal history of malignant neoplasm of breast documented in this encounter Care Teams Hot Bread Baker Relationship Specialty Start Date End Date Ana Her MD [facility] [address] [place] [address] PCP - General 07/29/13 documented as of this encounter
--- OUTSIDE RECORDS SUMMARY | 2023-11-18 15:08 | XMS_ITS | Encounter Summary ---
Author Organization [facility] [place] [address] Care Team Providers Care Nursing Program Director Name Role Phone Ana Her MD Primary Care Provider [phone] Encounter Details Date Type Department Care Team (Late st Contact Info) Description 05/31/2019 1:00 PM EST Office [place] [address] Jeanine Lobato, [facility] [place] [address] Encounter for follow-up surveillance of breast cancer; [...] Progress Notes * Jeanine Lobato APRN - 05/31/2019 1:00 PM EST Images from the original note were not included. Patient ID: Digna Olson is a 73 y.o. female HPI: Alma Delia is a patient of Dr. 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 She is status post left partial mastectomyand sentinel node excision on March 30, 2017. At today's visit, she denies any new lumps or bumps in her breasts or axilla. No nipple discharge or pain in either breast. She denies any headaches or significant weight changes. No new chest pain or difficulty breathing. No new bony pain or tenderness. She describes her health since the last visit as OK. Breast cancer history: Alma Delia presented for screening mammography in February,. This revealed a possible asymmetry in the lower outer left breast. Right breast was normal. Call back views and US confirmed a solid 4mm mass at 5:00 in the left breast. Biopsy was obtained which revealed IDC which is ER/ME+, Her2-. She hasno known breast masses, no adenopathy, no nipple discharge. 02/25/17 Needle biopsies Left breast: Diagnosis: Invasive mucinous carcinoma ? Intermediate grade, modified SBR score = 6 Microcalcifications:??Few calcifications associated with invasive carcinoma ER immunoreactivity: Positive ME immunoreactivity: Positive HER2 FISH: Negative for amplification Alma Delia opted against XRT given no significant difference in survival, but started taking anastrozole in April 2017 which she is tolerating well. Comprehensive Breast Program Surgery Follow Up: Range [...] cancer No Known genetic mutation Not tested Social Hx: She continues to live alone. She had a son that lives about 20 minutes away. She and herex- speak almost daily. He lives in [place]. She enjoys reading and cooking. She does [...] No respiratory distress, cough, or wheezing. Breasts: Right breast appears normal. Left breast with well-healed inframammary and axillary incisions. No suspicious masses, tenderness, dimpling, erythema, or [...] situation. Results: Imaging performed (bilateral mammogram) at [facility] [place] shows no evidence of malignancy, BIRADS Category 2 with mostly fatty replaced breasts with stable benign-appearing focal asymmetries. The results were reviewed with her at today's appointment. Assessment: Clinical breast exam notable for fibroglandular / fibrocystic breast tissue bilaterallywithout notable masses, skin changes, dimpling, or nipple discharge. Stable exam. Plan: 1. Encounter for follow-up surveillance of breast cancer 2. 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 Breast cancer screening by mammogram - Mammo Screening Cad and Jeramy Bilateral; Future I will see her back in a year with a mammogram and a clinical breast exam. She will also contact meif she develops any new breast changes or concerns prior to that time. She agrees to this plan. Routine recommendations discussed with the patient including importance of regular moderate intensity exercise, nutrition, decreasing cardiovascular risk, and optimizing weight. All questions were answered to the patient's satisfaction and they state understanding and agreement with today's treatment plan. They are encouraged to follow up sooner if they develop any new or concerning symptoms. Jeanine Lobato APRN Surgical Oncology P [phone] F [phone] [facility] documented in this encounter Plan [...] mammogram documented in this encounter Care Teams Nursing Program Director Relationship Specialty Start Date End Date Ana Her MD [facility] [address] [place] [address] PCP - General 07/29/13 documented as of this encounter
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
--- OUTSIDE RECORDS SUMMARY | 2023-11-18 15:08 | XMS_ITS | Encounter Summary ---
Author Organization [facility] [place] [address] Care Team Providers Care Payroll And Benefits Specialist Name Role Phone Ana Her MD Primary Care Provider [phone] Encounter Details Date Type Department Care Team (Latest Contact Info) Description 01/23/2022 12:15 PM EDT TH Visit (TeleHealth) [place] [address] Laura Will MD [facility] [place] [address] Paraesophageal hernia Social History Tobacco Use Types [...] Progress Notes * Laura Will MD - 01/23/2022 12:15 PM EDT Images from the original note were not included. MINIMALLY INVASIVE SURGERY VIRTUAL FOLLOW UP NOTE She was last seen by me on 12/05/21 regarding a symptomatic paraesophageal hernia and consideration for surgical management. ?? In summary, she describes a many year history of heartburn, [...] ?? No endoscopy - 15 or 20 years. Since our last visit, she reports no change in symptoms. She underwent an upper endoscopy that showed: Findings: Large paraesophageal hernia with Baltazar's ulcers and retained food. No obstruction. Biopsies showed: DIAGNOSIS A - Gastric ??Antrum for H Pylori, excision: - ??Antrum-type mucosa with reactive gastropathy. I reviewed the findings with her. She is followed by cardiology at [facility], and is on xarelto. Impression: Symptomatic paraesophageal hernia with organoaxial rotation without obstruction and baltazar's ulcers. Risks of volvulus, ulceration and anemia were [...] occasional need to convert to an open procedure. I explained that early satiety, gas bloating, and dysphagia occur in many patients after surgery, although these symptoms are usually temporary and tend to resolve with time. We discussed the risk of recurrence. ?? She would like to move forward with surgery. Will obtain her recent stress test, and plan a PCC evaluation given her cardiac history and deconditioning. Will need to hold Xarelto 2 days prior to surgery. 2 week preop diet All questions answered. Time Attestation: I spent a total of 15 minutes associated with this encounter, including chart review, the patient encounter, and documentation. documented in this encounter Plan of Treatment Not on file documented as of this encounter Visit Diagnoses Diagnosis Paraesophageal hernia Diaphragmatic hernia without mention of obstruction or gangrene documented in this encounter Care Teams Payroll And Benefits Specialist Relationship Specialty Start Date End Date Ana Her MD [address] [facility] [address] [place] [address] PCP - General 07/29/13 documented as of this encounter
--- OUTSIDE RECORDS SUMMARY | 2023-11-18 15:08 | XMS_ITS | Encounter Summary ---
Author Organization [facility] [place] [address] Care Team Providers Care Evp Operations Name Role Phone Ana Her MD Primary Care Provider [phone] Encounter Details Date Type Department Care Team (Latest Contact Info) Description 01/08/2022 6:11 AM EDT - 01/08/2022 9:40 AM EDT Hospital Encounter [place] [id number] Laura Park MD [facility] [place] [address] Discharge Disposition: Home Social History Tobacco Use [...] Sign Reading Time Taken Comments Blood Pressure 145/78 01/08/2022 9:00 AM EDT Pulse 73 01/08/2022 6:29 AM EDT Temperature 36.1 ??C (97 ??F) 01/08/2022 8:23 AM EDT Respiratory Rate 16 01/08/2022 8:30 AM EDT Oxygen Saturation 95% 01/08/2022 9:00 AM EDT Inhaled Oxygen Concentration - - Weight 91.4 kg (201 lb 8 oz) 01/08/2022 8:23 AM EDT Height 165.1 cm (5' 5) 01/08/2022 6:29 AM EDT Body Mass Index 33.53 01/08/2022 6:29 AM EDT documented in this encounter Discharge Instructions * Patient Instructions* Charlie Whitmore MD - 01/08/2022 8:29 AM EDT Call if you have a fever of greater than 101 degrees, shaking chills, or if you have questions. During normal business hours, Thursday- Thursday 8:00 a.m.-5:00 p.m., please call to speak to a nurse in the Thoracic Clinic at [phone]. After hours or on weekends or holidays please call: [phone] and ask to speak to the Thoracic Physician continuity editor. Diet: You should follow a clear liquid diet for the day of your procedure. Tomorrow you can eat a regular liquid diet. Please call the clinic tomorrow to let us know how you are doing. Follow up appointments: You will be scheduled for a follow up appointment with Dr. Park. BARIATRIC SUPPORT TEAM CONTACT NUMBERS (Thu-Thu 8am - 5pm): General Surgery and Bariatric Surgery [phone] Bariatric Surgeons: Drs. Park and John [phone] Capacity Planner: [phone] Dietitians: [phone] Outside of regular business hours, including weekends and holidays: Ask for General Surgery resident continuity editor [phone] Please note, this call will be answered by a resident, and they may not be Able to return your call for many hours FOR EMERGENCIES: CALL [phone] (trouble breathing, chest pain, rapid heart rate >120 beats per minuteor severe abdominal pain) documented in this encounter Medications at Time of Discharge Medication Sig Dispensed Refills Start Date End Date lisinopriL (Zestril) 10 mg Tablet Take 10 mg by mouth daily. 12/19/2021 Xarelto 15 mg Tablet Take 15 mg by mouth daily. 12/19/2021 spironolactone (Aldactone) 25 mg Tablet 03/19/2021 anastrozole (Arimidex) 1 mg TabletIndications:Dianne campuzano neoplasm of lower-outer quadrant of left breast [...] Tablet Take 40 mg by mouth daily. omeprazole (PriLOSEC) 20 mg Capsule, Delayed Release(E.C.) Take 20 mg by mouth daily. 03/07/2022 rivaroxaban (XARELTO ORAL) Take by mouth. 02/26/2022 lisinopril (PRINIVIL;ZESTRIL) 40 mg Tablet Take 10 mg by mouth daily. Taking 5 mg 02/26/2022 documented as of this encounter H&P Notes * Laura Park MD - 01/08/2022 7:11 AM EDT Day of Surgery Update Please see clinic note for further historical details, copied below. The patient's history and physical exam have been reviewed and completed. There has been no interval change from that of the pre-operative history and physical exam with RRRand CTAB. All preoperative questions were answered. Plan to proceed with upper endoscopy. LAURA PARK MD Digna Olson is a 76 y.o. female [...] of left breast of female, estrogen receptor [id number], Z17.0 ??? Anemia D64.9 ??? Aortic valve [...] ??? Cardiomyopathy, nonischemic I42.8 ? Past Surgical History: Procedure Laterality Date ??? BREAST BIOPSY Left 02/25/2017 ?? invasive mucinous ca med grade ??? BREAST LUMPECTOMY Left 03/2017 ??? PRO BX/REMV, LYMPH NODE, DEEP AXILL Left 03/30/2017 ?? BIOPSY OR EXCISION OF LYMPH NODE(S), OPEN, DEEP AXILLARY NODE(S) (WRVU 6.43) performed by Malika Chen MD at [facility] MAIN OR ??? PRO INTRAOP SENTINEL LYMPH ID W/DYE INJECTION Left 03/30/2017 ?? INTRAOPERATIVE ID (MAPPING) SENTINEL LYMPH NODE,INCLUDES INJECTION (WRVU 2.5) performed by Malika Chen MD at [facility] MAIN OR ??? PRO MASTECTOMY PARTIAL Left 03/30/2017 ?? MASTECTOMY PARTIAL (WRVU 10.13) performed by Malika Chen MD at [facility] MAIN OR ?? Cholecystectomy ?? Medications: ?? [...] Cat dander ?? Family History: Family History Problem Relation Age [...] a surgical plan. documented in this encounter Miscellaneous Notes * Op Note - Laura Park MD - 01/08/2022 7:48 AM EDT [facility] Operative Note Patient Name: Digna Olson : [id number] MR#: [id number] Case Date: 01/08/2022 Surgeon: Surgeon(s) and Role: * Laura Park MD - Primary * Charlie Whitmore MD - Resident Preoperative diagnosis: Hiatal hernia Postoperative diagnosis: Hiatal hernia Procedure(s) (LRB): EGD, UPPER GI ENDOSCOPY (N/A) Findings: Large paraesophageal hernia with Baltazar's ulcers and retained food. No obstruction. Anesthesia: General Estimated Blood Loss: * No values recorded between 01/08/2022 7:48 AM and 01/08/2022 8:18 AM * Specimens removed during surgery: Order Name Source Comment Collection Info Order Time SPECIMEN TO PATHOLOGY Gastric [place] for H Pylori Hiatal hernia Gastric [place] for H Pylori excision 01/08/2022 8:15 AM Time specimen removed from patient: 8:14 AM Number of tissue samples (in container) 1 Drains: None Surgical Closure: No incision Disposition: aroused from sedation, and taken to the recovery room in a stable condition Condition: doing well without problems (Please see the Surgical Encounter Summary for any Implant and Specimen details pertinent to this patient.) HPI/Surgical Indications: This is a 76 year old female with a history of GERD and found to have a large hiatal hernia on CT. After review of her therapeutic options, she elected to proceed with an EGD to further assess. Description of procecedure: Informed consent was obtained and a timeout was performed. The patient was placed in left lateral decubitous position. Iv sedation was then administered until an approriate level of sedation was achieved. The endoscope was then carefully advanced under direct visualization over the tongue and into the esophagus, and stomach. After a first attempt to pass the scope the patient desaturated, and the endoscope was removed until her saturations recovered. This took several minutes, however eventually she recovered and an additional, if abbreviated attempt was made. The scope was then readvanced into the duodenum via a tortuous course. The scope was then withdrawn and the mucosa carefully examined. The duodenum appeared normal. There was a large hiatal hernia. The stomach appeared volvulized, however there was no obstruction. There was retained food in the stomach and the stomach did not insufflated well. There were multiple linear ulcerations along the gastric fo lds, consistent with Baltazar's ulcers. There was some thin bloody fluid without clear source in thefundus. A biopsy was taken in the gastric antrum using cold jumbo forceps to assess for H. Pylori. The esophagus appeared normal. The scope was then readvanced into the stomach and air in the stomachwas evacuated. The scope was then withdrawn from the patient and the procedure was terminated. The procedure was well tolerated and there were no immediate complications. Plan PPI and follow up to discuss paraesophageal hernia repair. Surgical Infection Prevention Bundle Used? N/A documented in this encounter Plan of Treatment Not on file documented as of this encounter Procedures Procedure Name Priority Date/Time Associated Diagnosis Comments SPECIMEN TO PATHOLOGY Routine 01/08/2022 8:15 AM EDT SURGICAL PATHOLOGY REPORT Routine 01/08/2022 8:14 AM EDT Upper GI Endoscopy, Diagnostic (60586) Yes 01/08/2022 7:40 AM EDT Hiatal hernia POCT GLUCOSE Routine 01/08/2022 6:33 AM EDT documented in this encounter Results * Specimen to Pathology (01/08/2022 8:15 AM EDT) AP Specimen 01/08/2022 8:15 AM EDT 01/08/2022 8:15 AM EDT Narrative [facility] - 01/08/2022 8:15 AM EDT Specimen requisition ordered. ??Separate Pathology report to follow Laura Park MD PATHOLOGY/CYTOLOGY ORDERABLES [facility] [place] [address] * Surgical Pathology Report (01/08/2022 8:14 AM EDT) Surgical Pathology Report [id number] ? Location: SDP; SD36; A The signing pathologist has (i) examined the relevant preparation(s) for the specimen(s) and (ii) rendered or confirmed the diagnosis(es). . ?Surgical Pathology DIAGNOSIS A - Gastric ??Antrum for H Pylori, excision: - ??Antrum-type mucosa with reactive gastropathy. Electronically signed by: ?Umang Raymundo MD Verified: ??01/09/2022 16:36 ??Pathologist Performed at: ??-[facility] Dept. of Pathology, [place], [place] SPECIMEN(S) SUBMITTED A - Gastric ??Antrum for H Pylori, excision (1) CLINICAL INFORMATION Hiatal hernia SPECIMEN PROCESSING A - Labeled/Fixativ e: Gastric antrum for H. pylori, formalin. Quantity/Size: Single, 0.3 cm. Tissue Description: Soft, pink tissue. Sections/Proces sing: Submitted en toto ??in 1 cassette labeled A1. ??sns [facility] 01/08/2022 8:14 AM EDT Laura Park MD PATHOLOGY/CYTOLOGY ORDERABLES Performing Organization Address [facility] Co de Phone Number [facility] [place] [address] * POCT Glucose (01/08/2022 6:33 AM EDT) POC Glucose 120 65 - 199 mg/dL [facility] Comment: Supplemental ranges: <140 mg/dL before meals <180 mg/dL all other times of the day Blood 01/08/2022 6:33 AM EDT 01/08/2022 6:33 AM EDT Laura Park MD POINT OF CARE TEST ORDERABLES Performing Organization Address [facility] Co de Phone Number [facility] [place] [address] documented in this encounter Visit Diagnoses Not on filedocumented in this encounter Active and Recently Administered Medications Care Teams Evp Operations Relationship Specialty Start Date End Date Ana Her MD [address] [place] [address] PCP - General 07/29/13 documented as of this encounter
--- OUTSIDE RECORDS SUMMARY | 2023-11-18 15:08 | XMS_ITS | Encounter Summary ---
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 Rad Xray [address] [place] [address] [place] [address] Referral ID Status Reason Start Date Expiration Date V isits Requested Visits Authorized [id number] Closed Specialty Service Requested 05/22/2020 11/19/2021 1 1 Encounter Details Date Type Department Care Team (Late st Contact Info) Description 05/22/2020 1:15 PM EST Office Visit Hematology [place] [address] Ricky Lowry MD [facility] HEMATOLOGY/[place] [address] 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, estrogen receptor positive; Osteopenia of neck of femur, unspecified laterality; snf current 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 Social History [...] Sign Reading Time Taken Comments Blood Pressure 187/84 05/22/2020 12:53 PM EST Pulse 96 05/22/2020 12:53 PM EST Temperature 36.9 ??C (98.4 ??F) 05/22/2020 12:[address] Respiratory Rate 18 05/22/2020 12:53 PM EST Oxygen Saturation 97% 05/22/2020 12:53 PM EST Inhaled Oxygen Concentration - - Weight 99 kg (218 lb 3.2 oz) 05/22/2020 12:53 PM EST Height 170 cm (5' 6.93) 05/22/2020 12:53 PM EST Body Mass Index 34.25 05/22/2020 12:53 PM EST documented in this encounter Progress Notes * Ricky Lowry MD - 05/22/2020 1:15 PM EST Breast cancer follow-up HPI: Diagnosis [...] cancer cells with immunostaining) Stain intensity: Strong NE immunoreactivity: Positive (>90% cancer cells with immunostaining) [...] ??Excision with image-guided localization ?Lymph Node Sampling: ??[place] lymph node(s) ?Specimen Laterality: ??Left Tumor ?Histologic [...] ??DCIS not present in specimen Lymph Nodes ?[place] Lymph Nodes: [place] lymph node biopsy performed ?Number of [place] Nodes Examined: ??3 ?Number of Lymph Node(s) [...] Spinal stenosis > A Fib. Cardiology at [facility] [place]. S/P successful cardioversion May [...] she has no side effects from anastrazole. Recent compression fracture causing morespine pain (has appointment for spinal injection). No new problems with frequent VELEZ, diplopia, cough, SOB, fevers, bleeding, nausea, change in bowel or bladder function. No change in chronic balance problems (uses cane). ROS otherwise neg. Exam: Visit Vitals BP 187/84 Pulse 96 Temp 36.9 ??C (98.4 ??F) (Temporal) Resp 18 Ht 170 cm (5' 6.93) Wt 99 kg (218 lb 3.2 oz) SpO2 97% BMI 34.25 kg/m?? PERRL, EOMi, sclera nonicteric No MARLEE No spine tenderness Chest: clear to A and P Breast exam deferred [done earlier today] CV: Reg, no murmurs Abd: NT, no HSM, +BS Ext: no c/c/e Neuro: grossly nonfocal. I reviewed images from today's bilateral mammogram, which was benign. Assessment/Rec: 74 year-old female diagnosed February 2017 [...] April 2017, which she continues to take. Renewal sentto pharmacy. Clinically she is TACHO. All questions answered. We will see her back in roughly 6 months with repeat DEXA scan. documented in this encounter Plan of Treatment Not on file documented as of this encounter Results * DXA Central Spine, [...] BMD measurements and plots are available in [employer] under the imaging tab. Paper copies will be sent to providers without [employer] access. If you have received this report without the data sheet and do not have access to [employer], please contact Radiology Hogshead Stripper at [phone] Thursday thru Thursday 8am-4pm. Thank you for letting us participate in the care of this patient. ??If you are a health care provider and have any questions regarding this report, please contact the number below. ??For patients who have questions please contact the health urgent care nurse practitioner that requested your imaging first. ? Electronically signed by: Nat Epperson MD, [facility] ([phone]), at 11/19/2020 1:09 PM Narrative 11/19/2020 1:09 [...] copies will be sent to providers without E[employer] access.If you have received this report without the data sheet and do not haveaccess to E-, please contact Radiology Hogshead Stripper at [phone] Thursday thruFriday 8am-4pm. Thank you for letting us participate in the care of this patient. If youare a health care provider and have any questions regarding this report,please contact the number below. For patients who have questions please contactthe health urgent care nurse practitioner that requested your imaging first. 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
--- OUTSIDE RECORDS SUMMARY | 2023-11-18 15:08 | XMS_ITS | Encounter Summary ---
Author Organization [facility] [place] [address] Care Team Providers Care Fender Finisher Name Role Phone Ana Her MD Primary Care Provider [phone] Encounter Details Date Type Department Care Team (Latest Contact Info) Description 06/11/2021 8:41 AM EST - 06/11/2021 11:[address] [facility] Hospital Encounter Mammography/[place] [phone] Jeanine Lobato APRN [facility] [place] [address] Malignant neoplasm of lower-outer quadrant of left [...] Sig Dispensed Refills Start Date End Date spironolactone (Aldactone) 25 mg Tablet 03/19/2021 anastrozole (Arimidex) 1 mg TabletIndications:M alignant neoplasm [...] Take 40 mg by mouth daily. omega 7-uzg-oqx-fish-turm salty 417 mg-120 mg- 276 mg-600 mg Capsule Take by mouth. 12/05/2021 rivaroxaban (XARELTO ORAL) Take by mouth. 02/26/2022 [...] MAMMO SCREENING CAD AND JERAMY BILATERAL Routine 06/11/2021 9:02 AM EST 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, estrogen receptor positive Breast cancer screening by mammogram documented in this encounter Results * Mammo Screening Cad and Jeramy Bilateral (06/11/2021 9:02 AM EST) Anatomical Region Laterality Modality Breast Bilateral Mammography Narrative 06/11/2021 9:20 AM EST EXAMINATION: MAMMO SCREENING CAD AND JERAMY BILATERAL CLINICAL HISTORY: Breast cancer screening. Hx L breast cancer w/ PM, no XRT 2017. TECHNIQUE: CC and MLO views were obtained [...] who have questions please contact the health director of home care hospice that requested your imaging first. ? Jeanine Lobato PRODUCTION DIRECTOR IMG MAMMO ORD ERABLES documented in this encounter Visit Diagnoses Diagnosis 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, estrogen receptor positive Breast cancer screening by mammogram documented in this encounter Care Teams Fender Finisher Relationship Specialty Start Date End Date Ana Her MD [address] [place] [address] PCP - General 07/29/13 documented as of this encounter
--- OUTSIDE RECORDS SUMMARY | 2023-11-18 15:08 | XMS_ITS | Encounter Summary ---
Author Organization [facility] Address 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 Procedures DXA Central-Spine, Hip, And/Or Whole Body (Generic) Ricky Lowry MD [facility] HEMATOLOGY/[place] [address] [facility] Rad Xray [address] [place] [address] [place] [address] Referral ID Status Reason Start Date Expiration Date V isits Requested Visits Authorized [id number] Closed Specialty Service Requested 05/10/2018 05/10/2019 1 1 Reason for Visit * Diagnostic Test (Routine) - Closed Specialty Diagnoses / Procedures Referred By Contmary t Referred To Contact Radiology Diagnoses 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, estrogen receptor positive Osteopenia of neck of femur, unspecified laterality 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 current 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 Procedures DXA Central-Spine, Hip, And/Or Whole Body (Generic) Ricky Lowry MD [facility] HEMATOLOGY/[place] [address] [facility] Rad Xray [address] [place] [address] [place] [address] Referral ID Status Reason Start Date Expiration Date V isits Requested Visits Authorized [id number] Closed Specialty Service Requested 05/10/2018 05/10/2019 1 1 Encounter Details Date Type Department Care Team (Latest Contact Info) Description 11/09/2018 1:03 PM EDT - 11/09/2018 11:59 PM EDT Hospital Encounter XRay at [address] [place] [address] Ricky Lowry MD [facility] HEMATOLOGY/[place] [address] 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, estrogen receptor positive; Osteopenia of neck of femur, unspecified laterality; 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 metoprolol succinate XL (Toprol-XL) 50 mg Tablet Sustained Release 24 hr Take 25 mg by mouth Daily. 06/14/2018 05/22/2020 omeprazole (PriLOSEC) 40 mg Capsule, Delayed Release(E.C.)Indica tions:gastroesophag eal reflux disease Take 20 mg by mouth daily. Indications: gastroesophageal reflux disease 05/15/2018 12/05/2021 ELIQUIS 5 mg Tablet 10/29/2018 05/31/19 20 anastrozole (ARIMIDEX) 1 mg TabletIndications:M alignant neoplasm of lower-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, estrogen receptor positive Take 1 tablet by mouth daily. 90 tablet 3 05/10/2018 05/31/2019 metoprolol succinate (TOPROL-XL) 100 mg Tablet Sustained Release 24 hr Take 50 mg by mouth. 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 Paper copies will be sent to providers without [employer]-[email or web address][employer] access. If you have received this report without the data sheet and do not have access to [email or web address], please contact Radiology Health Care Administrator at [phone] Thursday thru Thursday 8am-4pm. Thank you for letting us participate in the care of this patient. For questions regarding this report, please contact the number below. ? Electronically signed by: Khushi Hughes [facility] ([phone]), at 11/10/2018 10:55 AM Narrative 11/10/2018 10:55 AM EDT EXAMINATION: DXA [...] BMD measurements and plots are available in EAdvanced Mobile Solutionsunder the imaging tab. Paper copies will be sent to providers without Be[employer] access.If you have received this report without the data sheet and do not haveaccess to [employer], please contact Radiology Health Care Administrator at [phone] Thursday thruFriday 8am-4pm. Thank you for letting us participate in the care of this patient. Forquestions regarding this report, please contact the number below. 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
--- OUTSIDE RECORDS SUMMARY | 2023-11-18 15:08 | XMS_ITS | Encounter Summary ---
Author Organization [facility] [place] [address] Care Team Providers Care Observation Nurse Name Role Phone Ana Her MD Primary Care Provider [phone] Encounter Details Date Type Department Care Team (Late st Contact Info) Description 05/10/2018 2:15 PM EST Office [place] [address] Hiral Padgett DRY CANS BACK TENDER [facility] [place] [address] History of breast cancer Social History Tobacco Use Types Packs/Day Years [...] as of this encounter Progress Notes * Hiral Padgett APRN - 05/10/2018 2:15 PM EST Digna is a 72 [address] old patient of Dr Chen who returns today interval surgical follow up. On 03/30/17 she underwent a left breast WLE/sentinel node excision. Pathology showed: Specimen Parts: ?? A - Left axilliary sentinel node B - Left breast partial mastectomy Specimen ?Procedure: ??Excision with image-guided localization ?Lymph Node Sampling: ?? [place] lymph node(s) ?Specimen Laterality: ?? 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 Score 2 ?Mitotic Rate: ?? Score 1 ?Overall Grade: ?? Grade 2 (scores of 6 or 7) ?Tumor Size: Size of Largest Invasive Carcinoma: ?6 mm ?Ductal Carcinoma In Situ (DCIS): ?No DCIS is present ?Tumor Extent ? Macroscopic and Microscopic Extent of Tumor ?Skin: ??Skin is not present ?Skeletal Muscle: ?? No skeletal muscle is present ?Accessory Tumor Findings ? Lymph-Vascular Invasion: ?? Not identified ? Microcalcifications: ?? Present in invasive carcinoma Margins ?Invasive Carcinoma: ?? Margins uninvolved by invasive carcinoma ? Distance of Invasive Carcinoma to Margins ?Cranial: ??2 mm ?Distance From Other Specified Margin: ?from all other RM ?? >10 ??mm ?Ductal Carcinoma In Situ (DCIS): ?DCIS not present in specimen Lymph Nodes ?[place] Lymph Nodes: ?? [place] lymph node biopsy performed ?Number of [place] Nodes Examined: ?3 ?Number of Lymph Node(s) Examined (sentinel and nonsentinel): ? 3 ?Lymph Node Involvement: ?? None identified Stage (pTNM) ?Pathological Stage: ?? pT1b ??pN0 ??Not applicable Additional Findings ?Additional Pathologic Findings: ?? Scar from the core biopsy. Tumor Block(s): ?? B2 Normal Block(s): ?? B1 Alma Delia opted against XRT but is on anastrozole,followed by Dr Lowry. No breast concerns today. Left new baseline mammogram on 10/2017 was cat 1. Bilateral mammogram today is cat 2. Leaving for [place] later today for a cardiac ablation/a fib at [facility]. Objective: Physical Exam Constitutional: She is oriented to person, place, and time. She appears well- developed and well-nourished. Lymphadenopathy: She has no cervical adenopathy. She has no axillary adenopathy. Right: No supraclavicular adenopathy present. Breast soft,no masses. Left: No supraclavicular adenopathy present. breast soft with well healed breast and axillary incisions,no masses. Neurological: She is alert and oriented to person, place, and time. Skin: Skin is warm and dry. Assessment and Plan: 72 yo female S/p left breast WLE/sent node for early stage invasive breast cancer. I will see her in May 2019 for a CBE and a mammo or sooner if needed. She agrees. documented in this encounter Plan of Treatment Not on file documented as of this encounter Visit Diagnoses Diagnosis History of breast cancer Personal history of malignant neoplasm of breast documented in this encounter Care Teams Observation Nurse Relationship Specialty Start Date End Date [place] Her MD [address] [place] [address] PCP - General 07/29/13 documented as of this encounter
--- OUTSIDE RECORDS SUMMARY | 2023-11-18 15:08 | XMS_ITS | Encounter Summary ---
[place] [address] Care Team Providers Care Manufacturer Representative Name Role Phone [place] Her MD Primary Care Provider [phone] Encounter Details Date Type Department Care Team (Late st Contact Info) Description 02/26/2022 Orders [place] [address] Alicia Manning RN Social History Tobacco Use Types Packs/Day Years [...] as of this encounter Progress Notes * Alicia Manning RN - 02/26/2022 1:30 PM EDT Voicemail left to advise pt to hold Xarelto for 2 days prior to surgery, last dose Sun 03/02. documented in this encounter Plan of Treatment Not on file documented as of this encounter Visit Diagnoses Not on filedocumented in this encounter Care Teams Manufacturer Representative Relationship Specialty Start Date End Date [place] Her MD [address] [place] [address] PCP - General 07/29/13 documented as of this encounter
--- OUTSIDE RECORDS SUMMARY | 2023-11-18 15:08 | XMS_ITS | Encounter Summary ---
[place] [address] Care Team Providers Care Heater Operator Name Role Phone [place] Her MD Primary Care Provider [phone] Encounter Details Date Type Department Care Team (Late st Contact Info) Description 06/12/2021 Telephone [place] [phone] Chelsie Lauren Social History Tobacco Use Types [...] on filedocumented in this encounter Care Teams Heater Operator Relationship Specialty Start Date End Date [place] Her MD [address] [place] [address] PCP - General 07/29/13 documented as of this encounter
--- OUTSIDE RECORDS SUMMARY | 2023-11-18 15:08 | XMS_ITS | Encounter Summary ---
[place] [address] Care Team Providers Care Milk Driver Name Role Phone Ana Her MD Primary Care Provider [phone] Encounter Details Date Type Department Care Team (Late st Contact Info) Description 01/08/2022 7:30 AM EDT - 01/08/2022 8:40 AM EDT Surgery [place] [phone] Laura Park MD [facility] [place] [address] EGD, UPPER GI ENDOSCOPY (WRVU 2.09) Social History Tobacco Use Types Packs/Day Years [...] Sign Reading Time Taken Comments Blood Pressure 95/68 01/08/2022 8:30 AM EDT Pulse 73 01/08/2022 6:29 AM EDT Temperature 36.1 ??C (97 ??F) 01/08/2022 8:23 AM EDT Respiratory Rate 16 01/08/2022 8:30 AM EDT Oxygen Saturation 97% 01/08/2022 8:30 AM EDT Inhaled Oxygen Concentration - - [...] a nurse in the Thoracic Clinic at [phone]. After hours or on weekends or holidays please call: [phone] and ask to speak to the Thoracic Physician shader and toner. Diet: You should follow a clear liquid [...] - 5pm): General Surgery and Bariatric Surgery [phone] Bariatric Surgeons: Drs. Park and John [phone] Powder Press Operator: [phone] Dietitians: [phone] Outside of regular business hours, including weekends and holidays: Ask for General Surgery resident shader and toner [phone] Please note, this call will be answered [...] of left breast of female, estrogen receptor qrkerxjaS05.512, Z17.0 ??? Anemia D64.9 ??? Aortic valve [...] 6.43) performed by Malika Chen MD at [facility] OR ??? PRO INTRAOP SENTINEL LYMPH ID W/DYE INJECTION Left 03/30/2017 ?? INTRAOPERATIVE ID (MAPPING) SENTINEL LYMPH NODE,INCLUDES INJECTION (WRVU 2.5) performed by Malika Chen MD at [facility] OR ??? PRO MASTECTOMY PARTIAL Left 03/30/2017 ?? MASTECTOMY PARTIAL (WRVU 10.13) performed by Malika Chen MD at [facility] OR ?? Cholecystectomy ?? Medications: [...] Park MD - 01/08/2022 7:48 AM EDT [facility] [place] Note Patient Name: Digna Olson : [id number] MR#: [id number] Case Date: 01/08/2022 Surgeon: Surgeon(s) and Role: [...] Info Order Time SPECIMEN TO PATHOLOGY Gastric [place] for H Pylori Hiatal hernia Gastric [place] for H Pylori excision 01/08/2022 8:15 AM [...] 8:14 AM EDT Upper GI Endoscopy, Diagnostic (49799) Yes 01/08/2022 7:40 AM EDT Hiatal hernia POCT GLUCOSE Routine 01/08/2022 6:33 AM EDT documented in this encounter Results * Specimen to Pathology (01/08/2022 8:15 AM EDT) AP Specimen 01/08/2022 8:15 AM EDT 01/08/2022 8:15 AM EDT Narrative [facility] - 01/08/2022 8:15 AM EDT Specimen requisition ordered. ??Separate Pathology report to follow Laura Park MD PATHOLOGY/CYTOLOGY ORDERABLES [facility] [place] [address] * Surgical Pathology Report (01/08/2022 8:14 AM EDT) Surgical Pathology Report [id number] ? Location: SDP; SD36; A The signing pathologist has (i) examined the relevant preparation(s) for the specimen(s) and (ii) rendered or confirmed the diagnosis(es). . ?Surgical Pathology DIAGNOSIS A - Gastric ??Antrum for H Pylori, excision: - ??Antrum-type mucosa with reactive gastropathy. Electronically signed by: ?Zackary MELTON, Umang Verified: ??01/09/2022 16:36 ??Pathologist Performed at: ??-[facility] Dept. [place]ology, [place], [place] SPECIMEN(S) SUBMITTED A - Gastric ??Antrum for H Pylori, excision (1) CLINICAL INFORMATION Hiatal hernia SPECIMEN PROCESSING A - Labeled/Fixativ e: Gastric antrum for H. pylori, formalin. Quantity/Size: Single, 0.3 cm. Tissue Description: Soft, pink tissue. Sections/Proces sing: Submitted en toto ??in 1 cassette labeled A1. ??sns [facility] 01/08/2022 8:14 AM EDT Laura Park MD PATHOLOGY/CYTOLOGY ORDERABLES Performing Organization Address [facility] Co de Phone Number [facility] [place] [place] [address] * POCT Glucose (01/08/2022 6:33 AM EDT) POC Glucose 120 65 - 199 mg/dL [facility] Comment: Supplemental ranges: <140 mg/dL before meals <180 mg/dL all other times of the day Blood 01/08/2022 6:33 AM EDT 01/08/2022 6:33 AM EDT Laura Park MD POINT OF CARE TEST ORDERABLES Performing Organization Address [facility] Co de Phone Number [facility] [place] [address] documented in this encounter Visit Diagnoses Not on filedocumented in this encounter Active and Recently Administered Medications Care Teams Milk Driver Relationship Specialty Start Date End Date Ana Her MD [address] [place] [address] PCP - General 07/29/13 documented as of this encounter
--- OUTSIDE RECORDS SUMMARY | 2023-11-18 15:08 | XMS_ITS | Encounter Summary ---
Author Organization [facility] [place] [address] Care Team Providers Care Hangersmith Name Role Phone Ana Her MD Primary Care Provider [phone] Encounter Details Date Type Department Care Team (Late st Contact Info) Description 11/09/2018 2:45 PM EDT Office Visit H[place]ology [place] [address] Ricky Lowry MD [facility] HEMATOLOGY/[place] [address] 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, estrogen receptor positive; Osteopenia of neck of femur, unspecified laterality Social History Tobacco Use Types Packs/Day Years [...] Sign Reading Time Taken Comments Blood Pressure 132/72 11/09/2018 2:31 PM EDT Pulse 102 11/09/2018 2:31 PM EDT Temperature 36.7 ??C (98.1 ??F) 11/09/2018 2:31 PM ED T Respiratory Rate 16 11/09/2018 2:31 PM EDT Oxygen Saturation 98% 11/09/2018 2:31 PM EDT Inhaled Oxygen Concentration - - Weight 96.2 kg (212 lb) 11/09/2018 2:31 PM EDT Height 166 cm (5' 5.35) 11/09/2018 2:31 PM EDT Body Mass Index 34.9 11/09/2018 2:31 PM EDT documented in this encounter Progress Notes * Ricky Lowry MD - 11/09/2018 2:45 PM EDT Breast cancer follow-up HPI: [...] cancer cells with immunostaining) Stain intensity: Strong [place] immunoreactivity: Positive (>90% cancer cells with immunostaining) [...] ??Excision with image-guided localization ?Lymph Node Sampling: ??[place] lymph node(s) ?Specimen Laterality: ??Left Tumor ?Histologic [...] ??DCIS not present in specimen Lymph Nodes ?[place] Lymph Nodes: [place] lymph node biopsy performed ?Number of [place] Nodes Examined: ??3 ?Number of Lymph Node(s) [...] Spinal stenosis > A Fib. Cardiology at [facility]. S/P successful cardioversion May 2018. DEXA scan today nl. There is no history of thromboembolic events. [...] ROS otherwise neg. Exam: Most Recent Vitals: 11/09/18 1431 BP: 132/72 Pulse: (!) 102 Resp: 16 Temp: 36.7 ??C (98.1 ??F) SpO2: 98% PERRL, EOMi, sclera nonicteric Oropharynx benign No MARLEE No spine tenderness Chest: clear to A and P Breasts without mass or change CV: Reg, tachy, no murmurs Abd: NT, no HSM, +BS Ext: no c/c/e Neuro: grossly nonfocal. I reviewed images from today's DEXA scan, which shows normal bone density [lowest T-score of -1.0 in femoral neck]. Assessment/Rec: 73-year-old female diagnosed February 2017 with [...] see her back in roughly 6 months, when due for mammo. documented in this encounter Plan of Treatment Not on file documented as of this encounter Visit Diagnoses Diagnosis 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, estrogen receptor positive Osteopenia of neck of femur, unspecified laterality documented in this encounter Care Teams Hangersmith Relationship Specialty Start Date End Date Ana Her MD [address] [facility] [address] [place] [address] PCP - General 07/29/13 documented as of this encounter
--- OUTSIDE RECORDS SUMMARY | 2023-11-18 15:08 | XMS_ITS | Encounter Summary ---
[place] [address] Care Team Providers Care Bus And Trolley Dispatcher Name Role Phone Ana Her MD Primary Care Provider [phone] Encounter Details Date Type Department Care Team (Late st Contact Info) Description 12/17/2021 Telephone [place] [phone] Roma Estrada RN Social History Tobacco Use Types Packs/Day [...] encounter Miscellaneous Notes * Telephone Encounter - Roma Estrada RN - 12/17/2021 10:28 AM EDT I spoke with Digna this morning and confirmed with her that her last dose of Xarelto prior to her upper endoscopy should be on 01/04/22. Digna is in agreement with this plan and appreciative of the call. documented in this encounter Plan of Treatment Not on file documented as of this encounter Visit Diagnoses Not on filedocumented in this encounter Care Teams Bus And Trolley Dispatcher Relationship Specialty Start Date End Date Ana Her MD [address] [place] [address] PCP - General 07/29/13 documented as of this encounter
--- OUTSIDE RECORDS SUMMARY | 2023-11-18 15:08 | XMS_ITS | Encounter Summary ---
Author Organization [place] [address] Care Team Providers Care Medical Officer Psychiatry Name Role Phone Ana Her MD Primary Care Provider [phone] Reason for Visit * Reason Comments Follow-up Encounter Details Date Type Department Care Team (Late st Contact Info) Description 11/15/2020 4:00 PM EDT Office Visit H[place]ology [place] [phone] Laura Joaquin PA [facility] GENERAL [place] [address] Malignant neoplasm of lower-outer quadrant of left [...] Sign Reading Time Taken Comments Blood Pressure 159/61 11/15/2020 3:37 PM EDT Pulse 69 11/15/2020 3:37 PM EDT Temperature 35.9 ??C (96.6 ??F) 11/15/2020 3:37 PM ED T Respiratory Rate 20 11/15/2020 3:37 PM EDT Oxygen Saturation 95% 11/15/2020 3:37 PM EDT Inhaled Oxygen Concentration - - Weight 94.5 kg (208 lb 5.4 oz) 11/15/2020 3:37 P M EDT Height 165.1 cm (5' 5) 11/15/2020 3:37 PM EDT Body Mass Index 34.67 11/15/2020 3:37 PM EDT documented in this encounter Progress Notes * Laura Joaquin PA - 11/15/2020 4:00 PM EDT Breast cancer follow-up HPI: Diagnosis [...] cancer cells with immunostaining) Stain intensity: Strong [place] immunoreactivity: Positive (>90% cancer cells with immunostaining) [...] ??Excision with image-guided localization ?Lymph Node Sampling: ??[place] lymph node(s) ?Specimen Laterality: ??Left Tumor ?Histologic [...] ??DCIS not present in specimen Lymph Nodes ?[place] Lymph Nodes: [place] lymph node biopsy performed ?Number of [place] Nodes Examined: ??3 ?Number of Lymph Node(s) [...] Spinal stenosis > A Fib. [place] [facility] S/P successful cardioversion May 2018. DEXA scan [...] side effects. She has chronic back pain/compression fractures for which she gets spinal injections. Shehas abdominal bloating and mild nausea x 1-2 years. She has also had leg swelling, particularly when she eats high salt foods, x years. Exercising on the treadmill 2x/wk x 20 min, bike x20-30 min everyday, beginning to swim again. Lost about 10 lbs due to increased activity, diet same. No new problems with breast lumps, frequent VELEZ, diplopia, cough, SOB, fevers, bleeding, nausea, change in bowel or bladder function. No change in chronic balance problems (uses cane). ROS otherwise neg. Exam: Visit Vitals BP 159/61 (Patient Position: Sitting) Pulse 69 Temp 35.9 ??C (96.6 ??F) (Temporal) Resp 20 Ht 165.1 cm (5' 5) Wt 94.5 kg (208 lb 5.4 oz) SpO2 95% BMI 34.67 kg/m?? PERRL, EOMi, sclera nonicteric No MARLEE No spine tenderness Chest: clear to A and P Breasts; Left breast with well-healed inframammary and axillary incisions. Right breast appears normal. No suspicious masses, tenderness, dimpling, erythema, or other skin changes in either breast. No nipple discharge or other nipple changes. No palpable axillary lymph nodes bilaterally. CV: Reg, no murmurs Abd: NT, no HSM, +BS Ext: no c/c/e Neuro: grossly nonfocal. I reviewed DXA done today - stable mild osteopenia Assessment/Rec: 75 y.o. 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 She is now status post partial mastectomy and sentinel node biopsy. Her invasive tumor was 6 mm in largest dimension. There was no angiolymphatic invasion and nodes were negative. Tumor was strongly positive for both of these estrogen and progesterone receptors. HER2 is negative. pT1N0. Given her pathologic features, chemotherapy not recommended. She declined radiation therapy. Anastrozole started April 2017,which she continues to take. Clinically she is TACHO. #Breast cancer - Continue anastrozole - Mammo UTD, due May 2021 #Bone health - Reviewed stable DEXA with patient - Taking ca and vit D All questions answered. We will see her back in roughly 6 months. Total time spent on day of visit: 30 min Laura Joaquin PA-C Medical Oncology - Breast & GI Cancers [facility] Pager - [phone] documented in this encounter Plan of Treatment Not on file documented as of this encounter Visit Diagnoses Diagnosis 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, estrogen receptor positive documented in this encounter Care Teams Medical Officer Psychiatry Relationship Specialty Start Date End Date Ana Her MD [address] [place] [address] PCP - General 07/29/13 documented as of this encounter
--- OUTSIDE RECORDS SUMMARY | 2023-11-18 15:08 | XMS_ITS | Encounter Summary ---
[place] [address] Care Team Providers Care Energy Control Officer Name Role Phone Ana Her MD Primary Care Provider Reason for Visit * Auth/Cert Specialty Diagnoses / Procedures Referred By Christiano hackett Referred To Contact Diagnoses S/P repair of paraesophageal hernia Post-Op monitoring Procedures PRO LAPARSCOPY REPAIR PARAESOPHAGEAL HERNIA INCL FUNDOPLASTY W/O MESH LAPAROSCOPIC PARAESOPHAGEAL HERNIA REPAIR W/FUNDOPLASTY, W/O MESH (WRVU 26.6) MODIFIER TOUPET FUNDOPLASTY Shania Will MD [facility] [place] [address] [facility] [place] Referral ID Status Reason Start Date Expiration Date Visits Re quested Visits Authorized [id number] 1 1 Encounter Details Date Type Department Care Team (Late st Contact Info) Description 03/05/2022 12:54 PM EDT - 03/05/2022 4:55 PM EDT Surgery [place] [id number] Shania Will MD [facility] [place] [address] LAPAROSCOPIC PARAESOPHAGEAL HERNIA REPAIR W/FUNDOPLASTY, W/O MESH (WRVU 26.6) Social History Tobacco Use Types Packs/Day Years [...] Sign Reading Time Taken Comments Blood Pressure 128/83 03/05/2022 12:19 PM EDT Pulse 70 03/05/2022 12:19 PM EDT Temperature 36.7 ??C (98.1 ??F) 03/05/2022 12:19 PM E DT Respiratory Rate 16 03/05/2022 12:19 PM EDT Oxygen Saturation 96% 03/05/2022 12:19 PM EDT Inhaled Oxygen Concentration - - [...] 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 Anemia D64.9 ??? Aortic valve [...] Per chart review, her creatinine levels in 8812-5786 ranged from 0.87-1.50 indicative of possible undiagnosed [...] PM Shania Will MD General Surgery at [facility] Arrive at: Career Services Manager Area [phone] Instructions Given to Patient at Discharge: Patient [...] hours please call the Surgery Clinic at [phone] before 5 PM on weekdays. For questions after hours and on weekends please call the hospital rubber mill operator at [phone] and ask for the General Surgery resident canceling and cutting control clerk. They may not be familiar with your [...] post Sly diet, as instructed by the cosmetic surgeon in the hospital for a period of [...] renal function. Please call the clinic at [phone] to confirm or reschedule. Future Appointments Date Time Provider Department Center 04/03/2022 12:00 PM Shania Will MD [facility] General Instructions None Future Appointments and Orders Future Appointments and Orders Future Appointments Provider Department Dept Phone 04/03/2022 12:00 PM Shania Will MD General Surgery at [facility] Arrive at: Career Services Manager Area 4L [phone] Signed: Shena Harden MD 03/07/22 7:18 AM [phone] Primary Saima Physician: MD Geovany David DR [facility] [id number] documented in this encounter Discharge Instructions * [...] hours please call the Surgery Clinic at [phone] before 5 PM on weekdays. For questions after hours and on weekends please call the hospital rubber mill operator at [phone] and ask for the General Surgery resident canceling and cutting control clerk. They may not be familiar with your [...] post Sly diet, as instructed by the cosmetic surgeon in the hospital for a period of [...] renal function. Please call the clinic at [phone] to confirm or reschedule. Future Appointments Date Time Provider Department Center 04/03/2022 12:00 PM Shania Will MD [facility] documented in this encounter Medications at Time [...] Ocampo RN - 03/07/2022 10:25 AM EDT [facility] Short Stay Unit Discharge Note All relevant [...] 15 132/71 99 % -- RA 03/05/22 184 -- 71 bpm 75 15 123/81 96 % 2 L/min NC 03/05/22 1900 -- 93 bpm 93 19 138/77 97 % 2 L/min NC 03/05/22 191 -- 72 bpm 77 23 133/73 98 % 2 L/min NC 03/05/22 1930 37 ??C (98.6 ??F) 90 bpm 90 15 130/62 97 % 2 L/min NC 03/05/228 36.6 ??C (97.9 ??F) 84 bpm -- [...] Sly Diet Education to pt Digna Olson. Risk Management Professional metwith pt at bedside to deliver full [...] she is noticing some overall improvement post op.Risk Management Professional took note of this and encouraged the pt to continue to share any challenges that may arise with attending providers. Some weight loss observed but not c/s at this time. Renal/Lytes lab variance, continue to monitor. Some nausea but well managed by Zofran. No current n/v/c or other diet related concerns relayed. ?? Dinga was very engaged throughout discussion and appeared to have great understanding of the information presented. Digna expressed that she believes she can do the sly diet and does not not foresee significant challenge incorporating this meal plan for 3wks. Patient voiced interest in severaloptions aligned with the diet and conveyed she is resourceful. Department contact information provided. Pt appreciate of loan underwriter's time. Nutrition to follow as needed. [...] Perez MD 03/05/2022 Minimally Invasive Surgery Pager #[phone] * Lorrie Slater RN - 03/05/2022 6:46 [...] pain. - pt tolerated oral fluids well 1930- pt meets d/c criteria. 1851- report given [...] ?? She is followed by cardiology at [facility], and is on xarelto. ?? 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 Anemia D64.9 ??? Aortic valve [...] 6.43) performed by Malika Chen MD at [facility] MAIN OR ??? PRO INTRAOP SENTINEL LYMPH ID W/DYE INJECTION Left 03/30/2017 ?? INTRAOPERATIVE ID (MAPPING) SENTINEL LYMPH NODE,INCLUDES INJECTION (WRVU 2.5) performed by Malika Chen MD at [facility] MAIN OR ??? PRO MASTECTOMY PARTIAL Left 03/30/2017 ?? MASTECTOMY PARTIAL (WRVU 10.13) performed by Malika Chen MD at [facility] MAIN OR ?? Cholecystectomy ?? Medications: ?? [...] Operative Note Patient Name: Digna Olson : [id number] MR#: [id number] Case Date: 03/05/2022 Surgeon: Surgeon(s) and Role: [...] Flores MD - 03/05/2022 2:32 PM EDT [facility] Operative Note Patient Name: Digna Olson : [id number] MR#: [id number] Case Date: 03/05/2022 Surgeon: Surgeon(s) and Role: [...] EDT HC CBC,PLT & AUTO DIFF Timed 10:15 AM EDT HC PHOSPHORUS, SERUM Timed [...] Repair Paraesophageal Hernia Incl Fundoplasty W/O Mesh (24601) 03/05/2022 1:58 PM EDT Paraesophageal Hernia POCT GLUCOSE Routine 03/05/2022 12:18 PM EDT LAPAROSCOPIC PARAESOPHAGEAL HERNIA REPAIR W FUNDOPLASTY, W/O MESH Routine 03/05/2022 12:02 PM EDT documented in this encounter Results * (ABNORMAL) Differential, Automated (03/07/2022 5:08 AM EDT) Neutrophils % 80.0 % [facility] Neutr Abs (ANC) 5.30 1.70 - 6.10 x10(3)/mc L [facility] Lymphocytes % 12.1 % [facility] Lymphocytes Abs 0.8(L) 0.9 - 3.2 x10(3)/mc L [facility] Monocytes % 7.6 % [facility] Monocyte Abs 0.5 0.3 - 0.9 x10(3)/mc L [facility] Eosinophils % 0.0 % [facility] Eosinophils Abs 0.0 0.0 - 0.4 x10(3)/[facility] Basophils % 0.0 % [facility] Basophils Abs 0.0 0.0 - 0.1 x10(3)/[facility] Immature Gran % 0.30 % [facility] Comment: Immature granulocytes(IG's)percentage and absolute count will include metamyelocytes, myelocytes, and promyelocytes. Blood smears from CBCs yielding IG's will be scanned manually for concordance. If this scan disagrees with the automated IG or if promyelocytes are noted, a manual differential will be performed. Elenita Gran Abs 0.02 0.00 - 0.04 x10(3)/[facility] Blood 03/07/2022 5:08 AM EDT 03/07/2022 5:19 AM EDT Narrative Resulting Agency Comment Spec In Lab Nino Levy MD HEMATOLOGY ORDERABLE S [facility] [place] [address] * (ABNORMAL) Hemogram (03/07/2022 5:08 AM EDT) WBC 6.6 4.0 - 9.5 x10(3)/[facility] RBC 3.16(L) 4.00 - 5.21 x10(6)/[facility] Hemoglobin 10.7(L) 11.7 - 15.5 g/dL [facility] Hematocrit 31.7(L) 35.7 - 45.8 % [facility] MCV 100.3(H) 82.6 - 94.4 fL [facility] MCH 33.9(H) 27.1 - 32.0 pg [facility] MCHC 33.8 31.7 - 35.0 g/dL [facility] Platelets 110(L) 145 - 357 x10(3)/[facility] RDWSD 47.5(H) 37.0 - 46.0 fL [facility] RDWCV 12.9 11.5 - 14.1 % [facility] MPV 11.7 7.6 - 12.9 fL [facility] nRBC % Auto 0.0 % [facility] nRBC Abs Auto 0.000 0.000 - 0.000 x10(3)/[facility] Blood 03/07/2022 5:08 AM EDT 03/07/2022 5:19 AM EDT Narrative Resulting Agency Comment Spec In Lab Nino Levy MD HEMATOLOGY ORDERABLE S Performing Organization Address City/[facility]/[place] [address] * Phosphorus (03/07/2022 5:08 AM EDT) Phosphorus 2.7 2.5 - 4.5 mg/dL [facility] Blood 03/07/2022 5:08 AM EDT 03/07/2022 5:19 AM EDT Narrative Resulting Agency Comment Spec In Lab Shania Will MD CHEMISTRY ORDERABLE S Performing Organization Address City/[facility]/ZIP Co de Phone Number [facility] [place] [address] * Magnesium (03/07/2022 5:08 AM EDT) Magnesium 0.89 0.69 - 1.07 mmol/L [facility] Blood 03/07/2022 5:08 AM EDT 03/07/2022 5:19 AM EDT Narrative Resulting Agency Comment Spec In Lab Shania Will MD CHEMISTRY ORDERABLE S [facility] [place] [address] * (ABNORMAL) Basic Metabolic Panel (non-fasting) (03/07/2022 5:08 AM EDT) Glucose Lvl 111 65 - 199 mg/dL [facility] Comment:Diabetes: >=200 mg/d L plus symptoms BUN 22(H) 8 - 18 mg/dL [facility] Creatinine 0.93 0.70 - 1.20 mg/dL [facility] Sodium 131(L) 135 - 145 mmol/L [facility] Potassium 4.5 3.5 - 5.0 mmol/L [facility] Comment: Please note: ??Patients with WBC >100,000 may have falsely elevated Potassium levels. ??For accurate Potassium quantification in these patients send serum separator tube (gold top) for subsequent determinations. ??Contact the Clinical Chemistry Laboratory if there are any questions. Chloride 100 98 - 107 mmol/L [facility] CO2 22 22 - 31 mmol/L [facility] Anion Gap 9 5 - 15 mmol/L [facility] Calcium 9.2 8.5 - 10.5 mg/dL [facility] Estimated GFR 64 >=60 mL/min/1. 73 m?? [facility] Comment: This patient's estimated GFR was [...] MD CHEMISTRY ORDERABLE S Performing Organization Address City/[facility]/ZIP Co de Phone Number [facility] [place] [address] * (ABNORMAL) Differential, Automated (03/06/2022 10:15 AM EDT) Neutrophils % 90.7 % [facility] Neutr Abs (ANC) 5.79 1.70 - 6.10 x10(3)/ L [facility] Lymphocytes % 5.0 % [facility] Lymphocytes Abs 0.3(L) 0.9 - 3.2 x10(3)/[facility] Monocytes % 3.8 % [facility] Monocyte Abs 0.2(L) 0.3 - 0.9 x10(3)/[facility] Eosinophils % 0.0 % [facility] Eosinophils Abs 0.0 0.0 - 0.4 x10(3)/[facility] Basophils % 0.0 % [facility] Basophils Abs 0.0 0.0 - 0.1 x10(3)/[facility] Immature Gran % 0.50 % [facility] Comment: Immature granulocytes(IG's)percentage and absolute count will include metamyelocytes, myelocytes, and promyelocytes. Blood smears from CBCs yielding IG's will be scanned manually for concordance. If this scan disagrees with the automated IG or if promyelocytes are noted, a manual differential will be performed. Elenita Gran Abs 0.03 0.00 - 0.04 x10(3)/ L [facility] Blood 03/06/2022 10:1 5 AM EDT 03/06/2022 10:21 AM EDT Narrative Resulting Agency Comment Spec In Lab Maryam MUELLER HEMATOLOGY ORDERABL ES Performing Organization Address [facility]/ZIP Co de Phone Number [facility] [place] [address] * (ABNORMAL) Hemogram (03/06/2022 10:15 AM EDT) WBC 6.4 4.0 - 9.5 x10(3)/[facility] RBC 3.07(L) 4.00 - 5.21 x10(6)/[facility] Hemoglobin 10.5(L) 11.7 - 15.5 g/dL [facility] Hematocrit 31.1(L) 35.7 - 45.8 % [facility] MCV 101.3(H) 82.6 - 94.4 fL [facility] MCH 34.2(H) 27.1 - 32.0 pg [facility] MCHC 33.8 31.7 - 35.0 g/dL [facility] Platelets 111(L) 145 - 357 x10(3)/[facility] RDWSD 47.2(H) 37.0 - 46.0 [facility] RDWCV 12.9 11.5 - 14.1 % [facility] MPV 11.5 7.6 - 12.9 fL [facility] nRBC % Auto 0.0 % [facility] nRBC Abs Auto 0.000 0.000 - 0.000 x10(3)/[facility] Blood 03/06/2022 10:1 5 AM EDT 03/06/2022 10:21 AM EDT Narrative Resulting Agency Comment Spec In Lab Maryam MUELLER HEMATOLOGY ORDERABL ES [facility] [place] [address] * Phosphorus (03/06/2022 10:15 AM EDT) Phosphorus 3.3 2.5 - 4.5 mg/dL [facility] Blood 03/06/2022 10:1 5 AM EDT 03/06/2022 10:21 AM EDT Narrative Resulting Agency Comment Spec In Lab Shania Will MD CHEMISTRY ORDERABLE S Performing Organization Address City/[facility]/ZIP Co de Phone Number [facility] [place] [address] * Magnesium (03/06/2022 10:15 AM EDT) Magnesium 0.69 0.69 - 1.07 mmol/L [facility] Blood 03/06/2022 10:1 5 AM EDT 03/06/2022 10:21 AM EDT Narrative Resulting Agency Comment Spec In Lab Shania Will MD CHEMISTRY ORDERABLE S Performing Organization Address [facility] Co de Phone Number [facility] [place] [address] * (ABNORMAL) Basic Metabolic Panel (non-fasting) (03/06/2022 10:15 AM EDT) Pathologist [facility] Glucose Lvl 155 65 - 199 mg/dL [facility] Comment:Diabetes: >=200 mg/d L plus symptoms BUN 29(H) 8 - 18 mg/dL [facility] Creatinine 1.25(H) 0.70 - 1.20 mg/dL [facility] Sodium 134(L) 135 - 145 mmol/L [facility] Potassium 4.8 3.5 - 5.0 mmol/L [facility] Comment: Please note: ??Patients with WBC >100,000 may have falsely elevated Potassium levels. ??For accurate Potassium quantification in these patients send serum separator tube (gold top) for subsequent determinations. ??Contact the Clinical Chemistry Laboratory if there are any questions. Chloride 101 98 - 107 mmol/L [facility] CO2 23 22 - 31 mmol/L [facility] Anion Gap 10 5 - 15 mmol/L [facility] Calcium 8.9 8.5 - 10.5 mg/dL [facility] Estimated GFR 45(L) >=60 mL/min/1. 73 m?? [facility] Comment: This patient's estimated GFR was [...] Lab Shania Will MD CHEMISTRY ORDERABLE S [facility] [place] [address] * (ABNORMAL) Differential, Automated (03/06/2022 4:29 AM EDT) Neutrophils % 90.5 % [facility] Neutr Abs (ANC) 4.47 1.70 - 6.10 x10(3)/mc L [facility] Lymphocytes % 6.9 % [facility] Lymphocytes Abs 0.3(L) 0.9 - 3.2 x10(3)/mc L [facility] Monocytes % 2.2 % [facility] Monocyte Abs 0.1(L) 0.3 - 0.9 x10(3)/mc L [facility] Eosinophils % 0.0 % [facility] Eosinophils Abs 0.0 0.0 - 0.4 x10(3)/mc L [facility] Basophils % 0.2 % [facility] Basophils Abs 0.0 0.0 - 0.1 x10(3)/mc L [facility] Immature Gran % 0.20 % [facility] Comment: Immature granulocytes(IG's)percentage and absolute count will include metamyelocytes, myelocytes, and promyelocytes. Blood smears from CBCs yielding IG's will be scanned manually for concordance. If this scan disagrees with the automated IG or if promyelocytes are noted, a manual differential will be performed. Elenita Gran Abs 0.01 0.00 - 0.04 x10(3)/mc L [facility] Blood 03/06/2022 4:29 AM EDT 03/06/2022 4:49 AM EDT Narrative Resulting Agency Comment Spec In Lab Prakash Mendez MD HEMATOLOGY ORDERABLE S [facility] [place] [address] * (ABNORMAL) Hemogram (03/06/2022 4:29 AM EDT) WBC 4.9 4.0 - 9.5 x10(3)/[facility] RBC 3.08(L) 4.00 - 5.21 x10(6)/[facility] Hemoglobin 10.5(L) 11.7 - 15.5 g/dL [facility] Hematocrit 31.0(L) 35.7 - 45.8 % [facility] MCV 100.6(H) 82.6 - 94.4 fL [facility] MCH 34.1(H) 27.1 - 32.0 pg [facility] MCHC 33.9 31.7 - 35.0 g/dL [facility] Platelets 104(L) 145 - 357 x10(3)/[facility] RDWSD 47.5(H) 37.0 - 46.0 [facility] RDWCV 12.9 11.5 - 14.1 % [facility] MPV 11.8 7.6 - 12.9 [facility] nRBC % Auto 0.0 % [facility] nRBC Abs Auto 0.000 0.000 - 0.000 x10(3)/mcL [facility] Blood 03/06/2022 4:29 AM EDT 03/06/2022 4:49 AM EDT Narrative Resulting Agency Comment Spec In Lab Prakash Mendez MD HEMATOLOGY ORDERABLE S [facility] [place] [address] * (ABNORMAL) Basic Metabolic Panel (non-fasting) (03/06/2022 4:29 AM EDT) Glucose Lvl 140 65 - 199 mg/dL [facility] Comment:Diabetes: >=200 mg/d L plus symptoms BUN 31(H) 8 - 18 mg/dL [facility] Creatinine 1.32(H) 0.70 - 1.20 mg/dL [facility] Sodium 136 135 - 145 mmol/L [facility] Potassium 5.3(H) 3.5 - 5.0 mmol/L [facility] Comment: Please note: ??Patients with WBC >100,000 may have falsely elevated Potassium levels. ??For accurate Potassium quantification in these patients send serum separator tube (gold top) for subsequent determinations. ??Contact the Clinical Chemistry Laboratory if there are any questions. Chloride 103 98 - 107 mmol/L [facility] CO2 23 22 - 31 mmol/L [facility] Anion Gap 10 5 - 15 mmol/L [facility] Calcium 9.0 8.5 - 10.5 mg/dL [facility] Estimated GFR 42(L) >=60 mL/min/1. 73 m?? [facility] Comment: This patient's estimated GFR was [...] MD CHEMISTRY ORDERABLE S Performing Organization Address City/[facility] Co de Phone Number [facility] [place] [address] * POCT Glucose (03/05/2022 12:18 PM EDT) POC Glucose 94 65 - 199 mg/dL [facility] Comment: Supplemental ranges: <140 mg/dL before meals <180 mg/dL all other times of the day Blood 03/05/2022 12:1 8 PM EDT 03/05/2022 12:18 PM EDT Shania Will MD POINT OF CARE TEST ORDERABLES Performing Organization Address [facility] Co de Phone Number [facility] [place] [address] documented in this encounter Visit Diagnoses Not on filedocumented in this encounter Admitting Diagnoses Diagnosis S/P [...] Given 03/05/2022 12:46 PM EDT 975 mg BUpivacaine (pf) (Marcaine) (2.5 mg/mL) 0.25% injection ONCE PRN, Starting on Thu03/05/22 at 1657, Until Thu03/07/22 at 1247, Intra-Operative (Intra-Procedure), Routine Given 03/05/2022 5:54 PM EDT 5 mLs 19- Surgical Site Given 03/05/2022 4:57 PM EDT 55 mLs carvediloL (Coreg) tablet 6.25 mg 6.25 mg, [...] EVERY 8 HOURS SCHEDULED, First dose on Thu03/06/22 at 2200, Until Discontinued, Routine Given 03/07/2022 [...] IV bolus Intravenous, ONCE, 1 dose, On Thu03/06/22 at 0500 New Bag 03/06/2022 4:10 AM [...] ordered pain medications are indicated. , Routine 2222 (Given - Provider: Alyssa Perales RN) 0403 [...] Ocampo RN) 0824 (Given - Provider: Olga Ocampo, CONNIE) enoxaparin (Lovenox) (40 mg/0.4 mL) subcutaneous injection 40 mg (CANCELED) 40 mg, Subcutaneous, NIGHTLY, First dose on Thu03/05/22 at 2145, Until Discontinued, Routine 2222 (Given - Provider: Alyssa Perales, CONNIE) furosemide (Lasix) tablet 40 mg 40 mg, [...] in omnicell) 0824 (Given - Provider: Olga Ocampo, CONNIE) heparin (porcine) (5,000 units/1 mL) subcutaneous injection 5,000 Units (COMPLETED) 5,000 Units, Subcutaneous, ONCE, 1 dose, On Thu03/05/22 at 1245, Day of Surgery (Day of Procedure), Routine 1246 (Given - Provider: Alicia Chwo RN) heparin (porcine) (5,000 units/1 mL) subcutaneous injection 5,000 Units 5,000 Units, Subcutaneous, EVERY 8 HOURS SCHEDULED, First dose on Radha 03/06/22 at 2200, Until Discontinued, Routine 2239 (Given - Provider: Tamanna Villalobos LPN) 0618 (Given - Provider: Tamanna Villalobos LPN) lactated Ringers 1,000 mL IV bolus (COMPLETED) Intravenous, ONCE, 1 dose, On Thu03/06/22 at 0500 0410 (New Bag - Provider: Pretty Hampton RN) magnesium sulfate 2 g in sterile water 50 mL infusion (COMPLETED) 2 g, Intravenous, ONCE, 1 dose, On Thu03/06/22 at 1430, Administer over 120 Minutes 1535 [...] IV running) 0824 (Given - Provider: Olga Ocampo RN) spironolactone (Aldactone) tablet 25 mg 25 mg, [...] Unit) 1849 (New Bag - Provider: Lorrie Slater RN) lactated ringers infusion 50 mL/hr, Intravenous, CONTINUOUS, Starting on Rdaha 03/06/22 at 0745, Until Thu03/07/22 at 1247, Recovery (Recovery-Hospital Unit) 0856 (New Bag - Provider: Olga Ocampo RN)2258 (New Bag - Provider: Tamanna Villalobos LPN) 1247 (Due: Stopped) PRN Medication Order 03/05/2022 03/06/2022 03/07/2022 BUpivacaine (pf) (Marcaine) (2.5 mg/mL) 0.25% injection (CANCELED) ONCE PRN, Starting on Thu03/05/22 at 1657, Until Thu03/07/22 at 1247, Intra-Operative (Intra-Procedure), Routine 1657 (Given - Provider: Prakash Mendez)1754 (Given - Provider: Prakash Mendez) ketorolac (Toradol) (30 mg/mL) injection 15 mg (CANCELED) 15 mg, Intravenous, EVERY 6 HOURS PRN, 8 doses, Starting on Thu03/05/22 at 1848, Until Radha 03/06/22 at 0621, Pain, Mild Pain 1-3, If both Acetaminophen and Ketorolac are ordered, start with Acetaminophen. If pain is not relieved within 30 minutes, give Ketorolac., Routine 191 (Given - Provider: Lorrie Slater RN) lidocaine (Xylocaine) 1% (10 mg/mL) injection 3 [...] Unit) documented in this encounter Care Teams Energy Control Officer Relationship Specialty Start Date End Date Ana Her MD [facility] [address] [facility] [address] [place] [address] PCP - General 07/29/13 documented as of this encounter
--- OUTSIDE RECORDS SUMMARY | 2023-11-18 15:08 | XMS_ITS | Encounter Summary ---
[place] [address] Care Team Providers Care Botany Teacher Name Role Phone Ana Her MD Primary Care Provider [phone] Encounter Details Date Type Department Care Team (Late st Contact Info) Description 04/05/2018 Telephone [place] [phone] Adrianna Jones Social History Tobacco Use Types Packs/Day Years [...] encounter Miscellaneous Notes * Telephone Encounter - Adrianna Jones - 04/05/2018 4:27 PM EST Received call from patient requesting to cancel her annual CBE and mammogram with MASTER Padgett. Patient advises she is admitted at [facility] for afib and is pending procedure etc. Patient will call to reschedule once she is discharged home. documented in this encounter Plan of Treatment Not on file documented as of this encounter Visit Diagnoses Not on filedocumented in this encounter Care Teams Botany Teacher Relationship Specialty Start Date End Date Ana Her MD [address] [place] [address] PCP - General 07/29/13 documented as of this encounter
--- OUTSIDE RECORDS SUMMARY | 2023-11-18 15:09 | XMS_ITS | Encounter Summary ---
[place] [address] Care Team Providers Care Family Sociologist Name Role Phone Ana Her MD Primary Care Provider [phone] Encounter Details Date Type Department Care Team (Late st Contact Info) Description 03/30/2017 11:19 AM EST Anesthesia Event [place] [address] Bridgette Mclaughlin MD [facility] [place] [address] Laura Koo, SUPERVISOR PAINT [address] [place] [address] Anesthesia Record Procedure Summary Procedure Name Responsible Anesthesiologist Anesthesia Start Time Anesthesia Stop Time MASTECTOMY PARTIAL (WRVU 10.13) (Left: Breast) Bridgette Mclaughlin MD 03/30/17 1119 03/30/17 1239 Events Date Time Event Comment 03/30/2017 1029 1119 AN Verify 1119 Start 1119 An Start Data 1124 An Induction 1126 An Intubation 1129 Anesthesia Ready 1143 Procedure Start 1228 Extubation/LMA Out 1228 an stop data 1239 Recovery or ICU Handoff Claudia ent care was transferred to the destination unit staff after review of the patient's medical history, current anesthetic/surgical status and plan, according to the Provider Handoff Checklist. 1239 Stop Meds Name Total Propofol INF 210.49 mg fentaNYL 100 mcg Midazolam 2 mg IV Lidocaine 100 mg Ondansetron 4 mg PHENYLephrine 800 mcg ceFAZolin (ANCEF) 2g in dextrose 5% 100 mL 2 g Esmolol 30 mg Ketorolac 30 mg lactated Ringers infusion 1,000 mL 800 m L * Agents Name O2 Air N2O Sevoflurane (et) * Blood No blood administrations on file. Lines, Drains, and Airways Type Details Placement Removal Incision breast; 12/30/21 (LDA cleanup utility RA#[id number]); 1715 (LDA cleanup utility RA#[id number]) 03/30/17 1146 by 12/30/21 1715 by Katia Bush Incision 03/30/17; mid axillary; 12/30/21 (LDA cleanup utility RA#[id number]); 1715 (LDA cleanup utility RA#[id number]) 03/30/17 0000 by Paris Taylor RN 12/30/21 1715 by Katia Bush (RETIRED) Peripheral IV Line - Single Lumen 03/30/17; 0815; median cubital vein (antecubital fossa), right; maaf-eek-xrbjju catheter system; 20 gauge, 1 in length; 0; 03/30/17; 1338 03/30/17 0815 by Anna Coy RN 03/30/17 1338 by Suzi Bukrett RN Supraglottic LMA Type: iGel; LMA Size: 4; Inserted by: Hayes BEDOLLA; Removal Date: 03/30/17; Removal Time: 1228 03/30/17 1131 by Laura Koo CRNA 03/30/17 1228 by Laura Koo CRNA documented in this encounter Social History Tobacco Use Types Packs/Day Years Used Date Smoking Tobacco: Never Smokeless Tobacco: Never Sex and Gender Information Value Date Recorded Sex Assigned at Not on file Gender Identity Not on file Sexual Orientation Not on file documented as of this encounter OR Notes * Anesthesia Postprocedure Evaluation - Bridgette Mclaughlin - 03/30/2017 2:13 PM EST [facility] Department of Anesthesiology Post-procedure Note Patient: Digna Olson Procedure Summary Date Anesthesia Start Anesthesia Stop Room / Location 03/30/17 1119 1239 [facility] OR 24 / MH MAIN OR Procedure Diagnosis Surgeon Responsible Provider MASTECTOMY PARTIAL (WRVU 10.13) (Left Breast); MODIFIER WITH NEEDLE LOC., LESION #1 (Left Breast); BIOPSY OR EXCISION OF LYMPH NODE(S), OPEN, DEEP AXILLARY NODE(S) (WRVU 6.43) (Left Axilla); INTRAOPERATIVE ID (MAPPING) SENTINEL LYMPH NODE,INCLUDES INJECTION (WRVU 2.5) (Left Breast); MODIFIER SENTINEL NODE EXCISION (Left Axilla) (LEFT BREAST CANCER) Malika Chen MD Clark, Cantwell, MD All Anesthesia Providers: Anesthesiologist: Bridgette Mclaughlin MD SUPERVISOR PAINT: Laura Koo CRNA Most Recent Vitals: 03/30/17 1315 BP: (!) 113/95 Pulse: Resp: Temp: SpO2: 92% Pain Patient Location: PACU/SD Level of Consciousness: Awake and Alert Pain Management: Satisfactory Analgesia PONV: None Cardiovascular Status: At Baseline Respiratory Status: At Baseline and Room Air Postoperative Fluid Status: Intravascular EUvolemia Possible Anesthetic Complications: NONE apparent at time of evaluation Final Primary Anesthesia Type: General (The anesthetic type performed was the same as planned.) Comments: * Anesthesia Preprocedure Evaluation - Bridgette Mclaughlin - 03/30/2017 9:14 AM EST Pre-Anesthesia Evaluation for: Digna Olson a 71 y.o. female. Procedure(s): MASTECTOMY PARTIAL (WRVU 10.13) MODIFIER WITH NEEDLE LOC., LESION #1 BIOPSY OR EXCISION OF LYMPH NODE(S), OPEN, DEEP AXILLARY NODE(S) (WRVU 6.43) INTRAOPERATIVE ID (MAPPING) SENTINEL LYMPH NODE,INCLUDES INJECTION (WRVU 2.5) MODIFIER SENTINEL NODE EXCISION Patient Active Problem List Diagnosis ??? 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 Olson presented February 12, 2017 on screening mammography with a new area of focal asymmetric density in the central, inferior left breast. Diagnostic imaging on February 17 showed an 8 x 4 mm mass in the left breast on mammography, but the mass could not be identified on ultrasound. Diagnosticimaging here on February 25 showed a 3 mm hypoechoic mass with distortion at 5:00 of the left breast, 9 cm from the nipple. 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 ??? Neurogenic claudication due to lumbar spinal stenosis No past medical history on file. No past surgical history on file. Social History Substance Use Topics ??? Smoking status: Never Smoker ??? Smokeless tobacco: Never Used ??? Alcohol use Not on file History Drug Use Not on file No Known Allergies Medications: MAR and/or home medications have been reviewed. Physical Exam: Most Recent Vitals: 03/30/17 0807 BP: 115/76 Pulse: 53 Resp: 16 Temp: 36.7 ??C (98.1 ??F) SpO2: 96% There is no height or weight on file to calculate BMI. Airway Assessment: Mallampati: II Cardiovascular Assessment: Rhythm: irregular Pulmonary Assessment: Dental Assessment: Misc Assessment: IV access: Peripheral line Anesthesia Plan: ASA 3 general, with a(n) intravenous induction thyroid HTN AF--recent apparent onset during colonoscopy Echo: EF 50%, mild to mod , mild AI, mild to mod MR, mild TR GERD--Sx well controlled on meds [place] Region - Other Informed Consent: Anesthetic plan and risks discussed with patient. Plan discussed with SUPERVISOR PAINT. PAT Staff Note documented in this encounter Plan of Treatment Not on file documented as of this encounter Visit Diagnoses Not on filedocumented in this encounter Administered Medications Inactive Administered Medications - up to 3 most recent administrations Medication Order MAR Action Action Date Dose Rate Site ceFAZolin (ANCEF) 2g in dextrose 5% 100 mL 2 g, Intravenous, EVERY 3 HOURS, 1 dose, First dose on Thu03/30/17 at 0700, Administer over 30 Minutes, Intra-Operative (Intra-Procedure), Indication for (Active or Suspected): Prophylaxis Given 03/30/2017 11:30 AM EST 2 g esmolol (BREVIBLOC) injection PRN, Starting on Thu03/30/17 at 1148, Until Thu03/30/17 at 1256, Anesthesia Intra-op, Routine Given 03/30/2017 11:53 AM EST 20 mg Given 03/30/2017 11:48 AM EST 10 mg fentaNYL 50 mcg/mL multi-dose injection Intravenous, PRN, Starting on Thu03/30/17 at 1121, Until Thu03/30/17 at 1256, Pain, Anesthesia Intra-op, Routine Given 03/30/2017 12:18 PM EST 25 mcg Given 03/30/2017 12:13 PM EST 25 mcg Given 03/30/2017 11:43 AM EST 25 mcg ketorolac (TORADOL) injection PRN, Starting on Thu03/30/17 at 1228, Until Thu03/30/17 at 1256, Pain, Anesthesia Intra-op, Routine Given 03/30/2017 12:28 PM EST 30 mg lidocaine (PF) (XYLOCAINE) 100 mg/5 mL (2 %) injection Intravenous, PRN, Starting on Thu03/30/17 at 1124, Until Thu03/30/17 at 1256, Anesthesia Intra-op, Routine Given 03/30/2017 11:24 AM EST 100 mg midazolam (PF) (VERSED) 1 mg/mL multi-dose injection Intravenous, PRN, Starting on Thu03/30/17 at 1119, Until Thu03/30/17 at 1256, Sleep, Anesthesia Intra-op, Routine Given 03/30/2017 11:19 AM EST 2 mg ondansetron (ZOFRAN) injection Intravenous, PRN, Starting on Thu03/30/17 at 1213, Until Thu03/30/17 at 1256, Nausea, Anesthesia Intra-op, Routine Given 03/30/2017 12:13 PM EST 4 mg PHENYLephrine in NS (PF) (TAVO-SYNEPHRINE) 0.8 mg/10 mL (80 mcg/mL) multi-dose injection Syrg Intravenous, PRN, Starting on Thu03/30/17 at 1129, Until Thu03/30/17 at 1256, Anesthesia Intra-op, Routine Given 03/30/2017 12:16 PM EST 160 mcg Given 03/30/2017 11:58 AM EST 160 mcg Given 03/30/2017 11:44 AM EST 160 mcg propofol (DIPRIVAN) infusion Intravenous, CONTINUOUS PRN, Starting on Thu03/30/17 at 1126, Until Thu03/30/17 at 1256, Anesthesia Intra-op, Routine Rate/Dose Change 03/30/2017 12:18 PM EST 50 mcg/kg/min 29.1 mL/hr Rate/Dose Change 03/30/2017 11:44 AM EST 30 mcg/kg/min 17. 5 mL/hr New Bag 03/30/2017 11:26 AM EST 50 mcg/kg/min 29.1 mL/h r documented in this encounter Care Teams Family Sociologist Relationship Specialty Start Date End Date Ana Her MD [address] [place] [address] PCP - General 07/29/13 documented as of this encounter
--- OUTSIDE RECORDS SUMMARY | 2023-11-18 15:09 | XMS_ITS | Encounter Summary ---
Author Organization [facility] [place] [address] Care Team Providers Care Field Horticultural Specialty Grower Name Role Phone Ana Her MD Primary Care Provider [phone] Encounter Details Date Type Department Care Team (Latest Contact Info) Description 02/23/2017 3:50 PM EDT - 02/23/2017 11:59 PM EDT Hospital Encounter [place] [phone] Jackie Cisneros APRN [address] [place] [address] Left breast mass Discharge Disposition: Home Social History Tobacco Use Types Packs/Day Years Used Date Smoking Tobacco: Never Smokeless Tobacco: Never Sex and Gender Information Value Date Recorded Sex Assigned at Not on file Gender Identity Not on file Sexual Orientation Not on file documented as of this encounter Medications at Time of Discharge Medication Sig Dispensed Refills Start Date End Date atorvastatin (LIPITOR) 40 mg Tablet Take 40 mg by mouth daily. levothyroxine (SYNTHROID) 137 mcg Tablet Take 125 mcg by mouth daily. 03/30/2017 cyclobenzaprine (FLEXERIL) 10 mg Tablet Take 1 tablet by mouth as needed. 0 07/28/2014 03/03/2017 atenolol (TENORMIN) 100 mg Tablet Take 100 mg by mouth daily. 03/25/2017 lisinopril (PRINIVIL;ZESTRIL) 40 mg Tablet Take 10 mg by mouth daily. Taking 5 mg 02/26/2022 hydrochlorothiazide (HYDRODIURIL) 25 mg Tablet Take 25 mg by mouth daily. 03/03/2017 felodipine (PLENDIL) 2.5 mg Tablet Sustained Release 24 hr Take 2.5 mg by mouth daily. 03/03/2017 omeprazole (PRILOSEC) 20 mg Capsule, Delayed Release(E.C.) Take 20 mg by mouth daily. 05/31/2019 documented as of this encounter Plan of Treatment Not on file documented as of this encounter Procedures Procedure Name Priority Date/Time Associated Diagnosis Comments REQUEST FOR 2ND READ MAMMO Routine 02/23/2017 3:50 PM EDT Left breast mass documented in this encounter Results * Request for 2nd read Mammo (02/23/2017 3:50 PM EDT) Anatomical Region Laterality Modality SO Impressions 02/24/2017 8:41 AM EDT 0.4 cm irregular mass in the left breast, 6:00 radian, 12 cm from the nipple. RECOMMENDATION: BI-RADS Category 4: Suspicious Finding - Biopsy Should Be Considered. Recommend repeat directed ultrasound of the left breast. If the mass is not visualized on repeat ultrasound, stereotactic breast biopsy is recommended. Please note: The interpretation of the [facility] Breast Imaging Radiologist subspecialist may differ from the original radiologists interpretation. This is usually not due to a deficiency of the original interpreting radiologist, rather due to the greater skill level afforded by sub-specialization in the field and/or reasonable variations in interpretations. If you have a concern regarding the D-H interpretation you may contact the [facility] Breast Embroidery Worker Office at . I have personally reviewed the image(s) and the residents interpretation and agree with the findings, ROBERT THOMPSON at 02/24/2017 8:41 AM Narrative 02/24/2017 8:41 AM EDT INTERPRETATION OF OUTSIDE BREAST IMAGING I have been asked to consult on this patient by Dr. Cisneros because he/she believes a review of this study may change or alter the care of this patient. STUDIES FROM: [facility] DATES: Screening mammogram 02/12/2017, diagnostic mammogram and ultrasound 02/17/2017 CLINICAL HISTORY: LEFT BREAST MASS, CAT 4; ? BX; What Modality is the exam? Mammography; Body Part (please add comments as necessary): BREAST; I believe a reinterpretation of this exam may alter care of Patient. Yes. ?? COMPARISONS: Prior mammograms, most recent 04/24/2014 FINDINGS: The breasts are almost entirely fatty. No microcalcifications, mass or architectural distortion within the right breast. There is a 0.4 cm irregular mass with indistinct borders in the left breast, 6:00 radian, 12 cm from the nipple. This mass does not resolve with compression. A distinct mass is not visualized on the provided ultrasound images of the lower outer quadrant of the left breast. Procedure Note Robert Thompson MD - 02/24/2017 INTERPRETATION OF OUTSIDE BREAST IMAGING I have been asked to consult on this patient by Dr. Cisneros becausehe/she believes a review of this study may change or alter the care of thispatient. STUDIES FROM: [facility] DATES: Screening mammogram 02/12/2017, diagnostic mammogram andultrasound 02/17/2017 CLINICAL HISTORY: LEFT BREAST MASS, CAT 4; ? BX; What Modality is theexam? Mammography; Body Part (please add comments as necessary): BREAST; Ibelieve a reinterpretation of this exam may alter care of Patient. Yes. COMPARISONS: Prior mammograms, most recent 04/24/2014 FINDINGS: The breasts are almost entirely fatty. No microcalcifications, mass or architectural distortion within theright breast. There is a 0.4 cm irregular mass with indistinct borders in the leftbreast, 6:00 radian, 12 cm from the nipple. This mass does not resolve withcompression. A distinct mass is not visualized on the provided ultrasound images of thelower outer quadrant of the left breast. IMPRESSION 0.4 cm irregular mass in the left breast, 6:00 radian, 12 cm from thenipple. RECOMMENDATION: BI-RADS Category 4: Suspicious Finding - Biopsy Should Be Considered.Recommend repeat directed ultrasound of the left breast. If the mass is notvisualized on repeat ultrasound, stereotactic breast biopsy is recommended. Please note: The interpretation of the [facility] BreastImaging Radiologist subspecialist may differ from the original radiologists interpretation. This is usually not due to a deficiency of the original interpreting radiologist, rather due to the greater skill level affordedby sub-specialization in the field and/or reasonable variations ininterpretations. If you have a concern regarding the D-[facility] interpretation you may contact the[facility] Breast Embroidery Worker Office at . I have personally reviewed the image(s) and the residents interpretationand agree with the findings, ROBERT THMOPSON at 02/24/2017 8:41 AM 8:41 AM Jackie Cisneros SVP GROUP DIRECTOR IMG OUTSIDE INTERPRE TATION ORDERABLES documented in this encounter Visit Diagnoses Diagnosis Left breast mass Lump or mass in breast documented in this encounter Care Teams Field Horticultural Specialty Grower Relationship Specialty Start Date End Date Ana Her MD [address] [place] [address] PCP - General 07/29/13 documented as of this encounter
--- OUTSIDE RECORDS SUMMARY | 2023-11-18 15:09 | XMS_ITS | Encounter Summary ---
Author Organization [facility] [place] [address] Care Team Providers Care Parole Hearing Officer Name Role Phone Ana Her MD Primary Care Provider [phone] Encounter Details Date Type Department Care Team (Late st Contact Info) Description 03/19/2017 Telephone [place] [phone] Malika Chen MD [facility] [place] [address] Social History Tobacco Use Types Packs/Day Years Used Date Smoking Tobacco: Never Smokeless Tobacco: Never Sex and Gender Information Value Date Recorded Sex Assigned at Not on file Gender Identity Not on file Sexual Orientation Not on file documented as of this encounter Miscellaneous Notes * Telephone Encounter - Malika Chen MD - 03/19/2017 9:33 AM EST I spoke with Alma Delia today regarding new afib. She reports that she is still in afib but is rate controlled and on eliquis. I think it is reasonable to proceed with surgery 03/30 but I will confirm with PCP there are no unexpected factors. Plan to hold eliquis 72 hours prior and likely restart 24 hours post op if no unexpected bleeding. Surgery is scheduled in [facility]. documented in this encounter Plan of Treatment Not on file documented as of this encounter Visit Diagnoses Not on filedocumented in this encounter Care Teams Parole Hearing Officer Relationship Specialty Start Date End Date Ana Her MD [address] [facility] [address] [place] [address] PCP - General 07/29/13 documented as of this encounter
--- OUTSIDE RECORDS SUMMARY | 2023-11-18 15:09 | XMS_ITS | Encounter Summary ---
Author Organization [facility] [place] [address] Care Team Providers Care Diamond Wheel Molder Name Role Phone Ana Her MD Primary Care Provider [phone] Encounter Details Date Type Department Care Team (Late st Contact Info) Description 08/16/2014 Orders Only Functional Evangelical Program at [facility] [address] [place] [address] Khari Martínez MD [facility] [place] [address] Social History Tobacco Use Types Packs/Day Years Used Date Smoking Tobacco: Never Assessed Sex and Gender Information Value Date Recorded Sex Assigned at Not on file Gender Identity Not on file Sexual Orientation Not on file documented as of this encounter Plan of Treatment Not on file documented as of this encounter Procedures Procedure Name Priority Date/Time Associated Diagnosis Comments FILM LIBRARY STORAGE ONLY MR SPINE Routine 08/16/2014 9:35 AM EDT documented in this encounter Results * Film Library- Storage only MR Spine (08/16/2014 9:35 AM EDT) Anatomical Region Laterality Modality Other 08/16/2014 9:35 AM EDT Narrative 08/21/2014 9:51 AM EDT This is a Non-reportable exam Procedure Note LARRY, UNSIGNED REPORT - 08/21/2014 This is a Non-reportable exam Khari Martínez MD [facility] FILM LIBRARY ORD ERABLES documented in this encounter Visit Diagnoses Not on filedocumented in this encounter Care Teams Diamond Wheel Molder Relationship Specialty Start Date End Date Ana Her MD [facility] [address] [place] [address] PCP - General 07/29/13 documented as of this encounter
--- OUTSIDE RECORDS SUMMARY | 2023-11-18 15:09 | XMS_ITS | Encounter Summary ---
Author Organization [facility] [place] [address] Care Team Providers Care It Administrator Name Role Phone Ana Her MD Primary Care Provider [phone] Encounter Details Date Type Department Care Team (Latest Contact Info) Description 02/25/2017 1:31 PM EDT Hospital En[place] [address] Maryam Yee MD [facility] DR DIAGNOST[place] [address] Abnormal mammogram Discharge Disposition: Home Social History Tobacco [...] Name Priority Date/Time Associated Diagnosis Comments MAMMO BREAST US LIMITED LEFT Routine 02/25/2017 2:40 PM EDT Abnormal mammogram documented in this encounter Results * Mammo Breast Us Limited Left (02/25/2017 2:40 PM EDT) Anatomical Region Laterality Modality Breast Left Mammography Impressions 02/25/2017 4:03 PM EDT Left breast persistence of focal asymmetry on diagnostic ultrasound and mammography. RECOMMENDATION: Ultrasound-guided biopsy, based on the above. Wider than tall hypoechoic mass, correlating with mammography findings. These findings and recommendations discussed with the patient, who concurs. She was subsequently consented, procedure to follow. Left breast: BI-RADS 4, suspicious. Narrative 02/25/2017 4:03 PM EDT Examination:MAMMO BREAST US LIMITED LEFT, MAMMO DIRECT DIGITAL WITH CAD LEFT Indication:Abnormal mammogram. 71-year-old female presents for additional workup and consideration of biopsy, left breast, subtle focal asymmetry. Outside interpretation was accomplished. Comparison: Outside imaging of 02/17/2017, 02/12/2017, multiple additional comparisons. ULTRASOUND: Personally directed and targeted high-resolution grayscale and color sonographic rotation. There is a mildly irregular taller than wide hypoechoic mass/distortion measuring 3 mm, 5:00, 9 cm from the nipple. MAMMOGRAPHY: Density, scattered densities. A BB was placed prior to mammography. The BB correlates closely with the mammography, correlating the ultrasound and diagnostic mammography findings. Focal asymmetry persists. No additional findings. Maryam Yee MD IMG MAMMO ORDERABL ES documented in this encounter Visit Diagnoses Diagnosis Abnormal mammogram Abnormal mammogram, unspecified documented in this encounter Care Teams It Administrator Relationship Specialty Start Date End Date Ana Her MD [address] [place] [address] PCP - General 07/29/13 documented as of this encounter
--- OUTSIDE RECORDS SUMMARY | 2023-11-18 15:09 | XMS_ITS | Encounter Summary ---
[place] [address] Care Team Providers Care Computer Forensic Specialist Name Role Phone Ana Her MD Primary Care Provider [phone] Reason for Visit * Reason Comments Low Back Pain Bilateral Hip Pain when standing or wal jaquelin Encounter Details Date Type Department Care Team (Late st Contact Info) Description 09/12/2014 11:20 AM EDT Office [place] [phone] Kris Benoit MD [facility] [place] [address] Neurogenic claudication due to lumbar spinal stenosis Discharge Disposition: Home Social History Tobacco Use Types Packs/Day Years Used Date Smoking Tobacco: Never Smokeless Tobacco: Never Sex and Gender Information Value Date Recorded Sex Assigned at Not on file Gender Identity Not on file Sexual Orientation Not on file documented as of this encounter Progress Notes * Kris Benoit MD - 09/12/2014 11:49 AM EDT Ms. Olson is a 69-year-old woman seen today in the [facility] consultation from Dr. Ana Her. She is seen and evaluated primarily for low back pain. She has previously been seen in the Sp[facility] Center by Michelle Hurtado on 08/30/2014. Her legs are asymptomatic. Her back pain is the biggest problem. She does have some pain in the lateral hips and several weeks ago for a short time she had some pain on the right anterior groin described more as a burning. In general, however, she does not have radiculopathy, radiculitis, or neurogenic claudication symptoms. PAST MEDICAL HISTORY: Includes hypothyroidism, hypertension, GERD, elevated lipids, sleep apnea. FAMILY HISTORY: Includes GI malignancies. PHYSICAL EXAMINATION: Height is 5 feet 7 inches, weight 215 pounds, body mass index 33.7. This is a very pleasant overweight woman. In the short distance, her gait is normal. She is able to toe walk and heel walk without weakness. On inspection from the back, her pelvis is level, her spine is straight. She has no pain through her thoracic, lumbar, sacral, or sciatic notch regions. Her lower extremity motor exam and sensory exam are normal. Reflexes are 1 at the knees and trace at the ankles. Her straight leg raise test is negative. Hip range of motion is pain free. Lumbar MRI from 08/16/2014 from [facility] is notable for multilevel degenerative changes L2-L3, L3-L4, L4-L5, L5-S1. At L2-L3, she has [id number] spinal stenosis, but she has no leg symptoms corresponding to this. Otherwise, she has significant disk degeneration, facet arthropathy, and varying degrees of stenosis particularly at L3-L4. This patient presents primarily with a complaint of back pain. This is not a surgically treated problem in general particularly from multilevel degenerative spine. She really does not describe any leg symptoms or radiculopathy or neurogenic claudication. So, I see no reason to consider surgical decompression. If her legs do become symptomatic with time, operative intervention may be helpful at that point to relieve leg symptoms, but at present I see no indication for surgery for her chronic back pain, which has been going on for over 20 years. We will recheck as needed. documented in this encounter Plan of Treatment Not on file documented as of this encounter Visit Diagnoses Diagnosis Neurogenic claudication due to lumbar spinal stenosis Spinal stenosis, lumbar region, with neurogenic claudication documented in this encounter Care Teams Computer Forensic Specialist Relationship Specialty Start Date End Date Ana Her MD [facility] [address] [place] [address] PCP - General 07/29/13 documented as of this encounter
--- OUTSIDE RECORDS SUMMARY | 2023-11-18 15:09 | XMS_ITS | Encounter Summary ---
Author Organization [facility] [address] Care Team Providers Care Landfill Attendant Name Role Phone Ana Her MD Primary Care Provider [phone] Encounter Details Date Type Department Care Team (Late st Contact Info) Description 10/23/2017 9:43 AM EDT - 10/23/2017 11:59 PM EDT Hospital En[place] [phone] Hiral Padgett APRN [facility] [place] [address] History of breast cancer Discharge Disposition: Home [...] Sig Dispensed Refills Start Date End Date cyanocobalamin, Vitamin B-12, (Vitamin B-12) 1,000 mcg Tablet Take 1,000 mcg by mouth. furosemide (LASIX) 40 mg Tablet Take 40 mg by mouth daily. gabapentin (NEURONTIN) 300 mg Capsule Take 300 mg by mouth 2 times daily. atorvastatin (LIPITOR) 40 mg Tablet Take 40 mg by mouth daily. metoprolol succinate (TOPROL-XL) 100 mg Tablet Sustained Release 24 hr Take 50 mg by mouth. 06/09/2017 05/31/2019 anastrozole (ARIMIDEX) 1 mg TabletIndications:Malign ant neoplasm of lower-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, estrogen receptor positive Take 1 tablet by mouth daily. 90 tablet 3 04/23/2017 05/10/2018 levothyroxine (SYNTHROID) 125 mcg Tablet Take 112 [...] Diagnosis Comments MAMMO SCREENING CAD AND JERAMY LEFT Routine 10/23/2017 10:08 AM EDT History of breast cancer documented in this encounter Results * Mammo Screening Cad and Jeramy Left (10/23/2017 10:08 AM EDT) Anatomical Region Laterality Modality Breast Left Mammography Impressions 10/23/2017 10:34 AM EDT No mammographic evidence of malignancy left breast. Resume screening. BI-RADS Category 2: Benign Findings * ??Medical organizations agree that annual screening [...] to a health care provider right away. Narrative 10/23/2017 10:34 AM EDT EXAMINATION: MAMMO SCREENING CAD AND JERAMY LEFT CLINICAL HISTORY: new baseline after left WLE 03/2017 TECHNIQUE: CC and MLO views were obtained of the left breast in addition to an exaggerated lateral left craniocaudal view. 2-D direct digital capture, 3-D tomosynthesis and computer aided detection (CAD) were used.. COMPARISON: Breast, FINDINGS: The breast is almost entirely fatty. There are no suspicious masses, suspicious microcalcifications, or areas of suspicious developing asymmetry. Anticipated postsurgical distortion is seen in the left posterior breast. Hiral Padgett APRN [facility] MAMMO ORDERA BLES documented in this encounter Visit Diagnoses Diagnosis History of breast cancer Personal history of malignant neoplasm of breast documented in this encounter Care Teams Landfill Attendant Relationship Specialty Start Date End Date Ana Her MD [facility] [address] [place] [address] PCP - General 07/29/13 documented as of this encounter
--- OUTSIDE RECORDS SUMMARY | 2023-11-18 15:09 | XMS_ITS | Encounter Summary ---
Author Organization [facility] Address [facility] [place] [address] Care Team Providers Care Process Chemist Name Role Phone Ana Her MD Primary Care Provider [phone] Reason for Visit * Reason Comments Radiation Consult * Consultation (Routine) - Closed Specialty Diagnoses / Procedures Referred By Christiano hackett Referred To Contact Radiation Oncology Diagnoses Breast cancer Malika Chen MD [facility] [place] [address] Stj Rad Onc Office [address] [place] [phone] Referral ID Status Reason Start Date Expiration Date Visits Re quested Visits Authorized [id number] Closed 03/17/2017 03/17/2018 1 1 Encounter Details Date Type Department Care Team (Late st Contact Info) Description 04/13/2017 10:00 AM EST Office Visit Radiation Oncology at [address] [phone] Faye Velez MD [facility] [place] [address] Malignant neoplasm of left female breast, unspecified estrogen receptor status, unspecified site of breast Social History Tobacco Use Types Packs/Day Years [...] Sign Reading Time Taken Comments Blood Pressure 90/59 04/13/2017 10:08 AM EST Pulse 65 04/13/2017 10:08 AM EST Temperature 36.5 ??C (97.7 ??F) 04/13/2017 1 0:08 AM EST Respiratory Rate 16 04/13/2017 10:0 8 AM EST Oxygen Saturation 97% 04/13/2017 10: 08 AM EST Inhaled Oxygen Concentration - - Weight 94.3 kg (207 lb 12.8 oz) 017 10:08 AM EST Height - - Body Mass Index 32.55 03/03/2017 8:57 AM EDT documented in this encounter Progress Notes * Maria A Antonio RN - 04/13/2017 10:00 AM EST RADIATION ONCOLOGY NURSING INITIAL NURSING ASSESSMENT IDENTIFICATION: Digna Olson is a 71 y.o. year-old female with left breast cancer. PRESENTING SYMPTOMS/CHIEF COMPLAINT: Presented with abnormal screening mammogram. REVIEW OF SYSTEMS:Review of Systems Constitutional: Positive for fatigue. Negative for appetite change and unexpected weight change. Activity change: I do even less than usual since surgery Respiratory: Positive for cough (occassional, mild, nonproductive). Negative for shortness of breath. Cardiovascular: Negative for chest pain. Gastrointestinal: Negative for constipation, diarrhea and nausea. Skin: Wound: s/p left partial mastectomy. Neurological: Light-headedness: rare with movement. IN THE PAST 12 MONTHS HAVE YOU: Fallen more than one time? Yes Injured yourself as result of the fall? Yes after fall on ice. Experienced difficulty with walking/problems with balance? Yes Do you use any assistive devices? Yes, cane (If patient does not know or declines to answer, please note in the 3 star option) If patient answered yes to any of the above, please offer to print out one of the following resources that may apply to them: Handouts offered. Patient declined handouts saying that she has been verycareful since falling. Stay Independent http://www.cdc.gov/steadi/pdf/stay_independent_brochure-a.pdf What you can do to prevent falls http://www.cdc.gov/steadi/pdf/what_you_can_do_brochure-a.pdf Check for Safety-A home fall prevention checklist for older adults http://www.cdc.gov/steadi/pdf/check_for_safety_brochure-a.pdf Postural Hypotension-What is it and how to manage it http://www.cdc.gov/steadi/pdf/postural_hypotension-a.pdf Chair Rise Exercises to strengthen the muscles of things and buttocks http://www.cdc.gov/steadi/pdf/chair_rise_exercise-a.pdf Any Implanted Devices/Hardware: left wrist plate If yes please put alert in ARIA patient summary Prior Radiotherapy: No Prior Chemotherapy: No Prior Hormone Therapy: Yes [x] Drug(s): control pill for a year total at most many years ago. Physician/Location: RADIOLOGY SAFETY QUESTIONS REVIEWED: If applicable MRICTSAFETYQUESTIONS LEARNING ASSESSMENT REVIEWED: yes ADVANCED DIRECTIVE: Not addressed this visit PAIN ASSESSMENT: 0-1 out of 10 Left axilla. *eD-H Adult PCS Flow Sheet if 4 or above SOCIAL ASSESSMENT: See EDH social assessment information entered. Support Systems: Family. Here today with sister. Barriers to treatment: Patient tending to not want to have xrt in part due to fear of not being able to have further xrt if recurrence. Dr. Velez updated. Referrals/Interventions: RADIATION SPECIFIC TEACHING: [facility] and You Site specific teaching :Nursing site specific teaching to be done on simulation day. Other: PLAN: Per Dr. Velez * Faye Velez MD - 04/13/2017 10:00 AM EST CC: Referred by Dr. Her for eval for xrt for breast ca. HPI: 71 y/o f who presented w/L breast abnlty on screening mmg. DH interp outside 02/12/17 B screening mmg & 02/17/17 dx'ic L mmg & L breast US: 0.4 cm irregular mass L breast @ 6:00, 12 cm from nipple. R breast neg. 02/25/17 dx'ic L mmg & L breast US: 3 mm mass/distortion @ 5:00, 9 cm from nipple. 02/25/17 US guided needle core bx L breast asymmetry/distortion @ 5:00, 9 cm from nipple. 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 03/03/[address] Chen showing no breast mass/adenopathy. 03/30/17 US guided NLOC L breast lumpectomy with + specimen xray. SNB. No palpable adenopathy. Path: Mucinous ca, gr 2, 6 mm, RM neg, 3 sentinel lymph nodes (all neg), pT1b pN0. ROS: Healing ok. No pain. No swelling hand/arm. ROM arms around shoulders ok. Appetite ok. Energy level low; low prior to surgery; she is being evaluated for afib @ [facility] [place] W. 04/15/17; has been wearing a ziopatch which is to be removed W., 04/15/17. Accompanied by sister. Past Medical History: Diagnosis Date ??? Fracture of tibia 12/2016 left tibial plateau ??? GERD (gastroesophageal reflux disease) ??? H/O non-insulin dependent diabetes mellitus ??? Spinal stenosis Htn Past Surgical History: Procedure Laterality Date ??? PRO BX/REMV, LYMPH NODE, DEEP AXILL Left 03/30/2017 BIOPSY OR EXCISION OF LYMPH NODE(S), OPEN, DEEP AXILLARY NODE(S) (WRVU 6.43) performed by Malika Chen MD at [facility] MAIN OR ??? PRO INTRAOP SENTINEL LYMPH ID W/DYE INJECTION Left 03/30/2017 INTRAOPERATIVE ID (MAPPING) SENTINEL LYMPH NODE,INCLUDES INJECTION (WRVU 2.5) performed by Malika Chen MD at [facility] MAIN OR ??? PRO MASTECTOMY, PARTIAL Left 03/30/2017 MASTECTOMY PARTIAL (WRVU 10.13) performed by Malika Chen MD at [facility] MAIN OR Your Medications These changes are accurate as of: 04/13/17 10:38 AM. If you have any questions, ask your nurse or doctor. Continued medications, unchanged Dose Details amLODIPine 10 mg Tab Commonly known as: NORVASC Take 10 mg by mouth daily. 10 mg Refills: 0 atorvastatin 40 mg Tab Commonly known as: LIPITOR Take 40 mg by mouth daily. 40 mg Refills: 0 ELIQUIS 5 mg Tab Take 5 mg by mouth 2 times daily. Generic drug: apixaban 5 mg Refills: 0 furosemide 40 mg Tab Commonly known as: LASIX Take 40 mg by mouth daily. 40 mg Refills: 0 gabapentin 300 mg Cap Commonly known as: NEURONTIN Take 300 mg by mouth 3 times daily. 300 mg Refills: 0 levothyroxine 125 mcg Tab Commonly known as: SYNTHROID Take 125 mcg by mouth daily. 125 mcg Refills: 0 lisinopril 40 mg Tab Commonly known as: PRINIVIL;ZESTRIL Take 40 mg by mouth daily. 40 mg Refills: 0 * meTOPROLOL tartrate 25 mg Tab Commonly known as: LOPRESSOR Take 25 mg by mouth daily. 25 mg Refills: 0 * meTOPROLOL tartrate 50 mg Tab Commonly known as: LOPRESSOR Take 50 mg by mouth daily. 50 mg Refills: 0 omeprazole 20 mg Cpdr Commonly known as: PriLOSEC Take 20 mg by mouth daily. 20 mg Refills: 0 spironolactone 25 mg Tab Commonly known as: ALDACTONE Take 25 mg by mouth daily. 25 mg Refills: 0 VITAMIN B-12 1,000 mcg Tab Take 1,000 mcg by mouth. Generic drug: cyanocobalamin 1000 mcg Refills: 0 * Notice: This list has 2 medication(s) that are the same as other medications prescribed for you. Read the directions carefully, and ask your doctor or other care provider to review them with you. STOPPED Medications ibuprofen 600 mg Tab Commonly known as: ADVIL;MOTRIN Stopped by: Faye Velez MD Physical Exam Constitutional: She is oriented to person, place, and time. She appears well- developed and well-nourished. No distress. BP 90/59 (Patient Position: Sitting) Pulse 65 Temp 36.5 ??C (97.7 ??F) (Oral) Resp 16 Wt 94.3 kg (207 lb 12.8 oz) SpO2 97% BMI 32.55 kg/m2 HENT: Head: Normocephalic and atraumatic. Eyes: Conjunctivae and EOM are normal. Right eye exhibits no discharge. Left eye exhibits no discharge. No scleral icterus. Neck: Normal range of motion. Neck supple. No tracheal deviation present. No thyromegaly present. Pulmonary/Chest: Effort normal and breath sounds normal. No stridor. No respiratory distress. She has no wheezes. She has no rales. She exhibits no tenderness. Right breast exhibits no inverted nipple, no mass, no nipple discharge, no skin change and no tenderness. Left breast exhibits no inverted n ipple, no mass, no nipple discharge, no skin change and no tenderness. Well healed lumpectomy scar in L inframammary fold. Healed needle loc puncture @ 5 o'clock L breast. Well healed SNB scar in L axilla. Ziopatch medial L infraclav area. Abdominal: Soft. She exhibits no distension and no mass. There is no tenderness. There is no rebound and no guarding. Musculoskeletal: Normal range of motion. She exhibits no edema, tenderness or deformity. Lymphadenopathy: Head (right side): No submental, no submandibular, no preauricular, no posterior auricular and no occipital adenopathy present. Head (left side): No submental, no submandibular, no preauricular, no posterior auricular and no occipital adenopathy present. She has no cervical adenopathy. She has no axillary adenopathy. Right: No inguinal and no supraclavicular adenopathy present. Left: No inguinal and no supraclavicular adenopathy present. Neurological: She is alert and oriented to person, place, and time. No cranial nerve deficit. She exhibits normal muscle tone. Coordination normal. Skin: She is not diaphoretic. Psychiatric: She has a normal mood and affect. Her behavior is normal. Thought content normal. A: Breast ca, L, mucinous, gr 2, ER+IL+, Her2 neg, s/p lumpectomy & SNB, pT1b pN0, stage I. P: We discussed Sandro' report on CALGB 9343 data regarding effect of xrt after lumpectomy in womenw/estrogen sensitive clinical stage I breast ca who are treated w/barlow. The data showed 10 yr risk of local recurrence of 10% in women who were treated w/barlow only (no xrt) after lumpectomy & 2% inwomen treated w/xrt after lumpectomy (as well as barlow); difference statistically significant. No significant difference in survival, time to mastectomy or risk of distant met between the 2 groups. Xrt would be given in 20 fxs. Possible side effects of xrt to breast discussed, w/acute/immediate side effects including: Pinkening, soreness & peeling of skin in treated area; swelling of treated breast; soreness of treated breast; cough; shortness of breath; tiredness. Late/remote computer terminal operator side effects to breast discussed include: Treated breast may shrink, become firmer & sit higher on chest; achiness/stiffness of chest wall on treated side; slight increase in smallrisk of dying of heart disease (from 1.9% to 2.4%) in women irradiated to L breast/chest; rib fracture on treated side; CT after xrt may show scarring w/in small volume of lung on treated side; very small risk of radiotherapy associated 2nd malignancy. Need for CTsim prior to xrt discussed. At CTsim, she would be assessed for use of deep inspiration breath hold (DIBH) to decrease xrt dose to heart. She thinks she will accept hormonal tx & will forego xrt. She has appt 04/23/17 w/Dr. Lowry for eval for systemic tx. Dr. Chen 05/06/17 for postop check. 25 mins of 40 min face to face visit w/Digna spent discussing rationale for xrt; hoped for benefitof xrt; possible side effects/complications of xrt; prevention/management of side effects/complications of xrt; logistics of daily xrt; CTsimulation w/eval for DIBH; arm position required for xrt; followup after completion of xrt. documented in this encounter Plan of Treatment Not on file documented as of this encounter Visit Diagnoses Diagnosis Malignant neoplasm of left female breast, unspecified estrogen receptor status, unspecified site of breast documented in this encounter Care Teams Process Chemist Relationship Specialty Start Date End Date Ana Her MD [address] [place] [address] PCP - General 07/29/13 documented as of this encounter
--- OUTSIDE RECORDS SUMMARY | 2023-11-18 15:09 | XMS_ITS | Encounter Summary ---
Author Organization [place] [address] Care Team Providers Care Hospital Librarian Name Role Phone Ana Her MD Primary Care Provider [phone] Encounter Details Date Type Department Care Team (Latest Contact Info) Description 02/17/2017 12:15 AM EDT - 02/17/2017 11:59 PM EDT Hospital Encounter [place] [address] Maryam Yee MD [facility] [address] DIAGNOSTIC [place] [address] Screening breast examination Discharge Disposition: Home Social History Tobacco Use [...] Associated Diagnosis Comments FILM LIBRARY STORAGE ONLY MAMMO Routine 02/17/2017 12:15 AM EDT Screening breast examination documented in this encounter Results * Film Library- Storage Only Mammo (02/17/2017 12:15 AM EDT) Narrative [facility] - 02/19/2017 2:01 PM EDT This exam is for storage only and is auto-finalizing. Maryam Yee MD IMG FILM LIBRARY O RDERABLES [place], [place] documented in this encounter Visit Diagnoses Diagnosis Screening breast examination (Not by Mammogram) Other screening breast examination documented in this encounter Care Teams Hospital Librarian Relationship Specialty Start Date End Date Ana Her MD [address] [place] [address] PCP - General 07/29/13 documented as of this encounter
--- OUTSIDE RECORDS SUMMARY | 2023-11-18 15:09 | XMS_ITS | Encounter Summary ---
Author Organization Formerly [facility] [place] [address] Care Team Providers Care Certified Court/Medical Interpreter Name Role Phone Ana Her MD Primary Care Provider [phone] Encounter Details Date Type Department Care Team (Late st Contact Info) Description 03/30/2017 9:30 AM EST - 03/30/2017 11:28 AM EST Surgery [place] [phone] Brant Chen MD [facility] [place] [address] MASTECTOMY PARTIAL (WRVU 10.13) Social History Tobacco Use Types Packs/Day Years Used Date Smoking Tobacco: Never Smokeless Tobacco: Never Sex and Gender Information Value Date Recorded Sex Assigned at Not on file Gender Identity Not on file Sexual Orientation Not on file documented as of this encounter Last Filed Vital Signs Vital Sign Reading Time Taken Comments Blood Pressure 115/76 03/30/2017 8:07 AM EST Pulse 53 03/30/2017 8:07 AM EST Temperature 36.7 ??C (98.1 ??F) 03/30/2017 8:07 AM ES T Respiratory Rate 16 03/30/2017 8:07 AM EST Oxygen Saturation 96% 03/30/2017 8:07 AM EST Inhaled Oxygen Concentration - - Weight - - Height - - Body Mass Index - - documented in this encounter Discharge Instructions * Discharge Instructions* Suzi Burkett RN - 03/30/2017 12:48 PM EST POST ANESTHESIA INSTRUCTIONS Go home, rest, use caution on stairs. Change positions slowly. Do not smoke if you are alone. Diet light to regular as tolerated today. If nausea occurs start with clear liquids and progress slowly. No driving, operating machinery, alcoholic beverages and no important decisions for 24 hours. Monitor IV site for signs and symptoms of infection: increasing redness, swelling, foul drainage, if occurs contact M.D. Patients who have had endotrachial tubes (this tube, used by anesthesia department, is passed down your throat after you are asleep, to ensure safe air passage during your operation). A sore throat is normal due to the tube. Cold liquids or soothing lozenges will help ease the discomfort. The generalized muscle aches are due to the medication given to you just before the tube is inserted. As the medication wears off, you may develop muscle soreness, which usually goes away in 12-24 hours. Okay to shower 24 hours Activity as tolerated Call [phone] with any questions Do not soak incision for 2 weeks Will call with pathology results in 5-7 days Ice pack to breast as needed Okay to use tylenol and/or ibuprofen as needed for pain You may use your home tramadol as needed and as prescribed (Recommend taking 650 mg of tylenol and 400 mg ibuprofen every 6 hours as needed) Wear bra for comfort (you may want to wear / until swelling improves) May resume eliquis in 24 hours. Once on eliquis for 24 hours (thursday)- discontinue ibuprofen documented in this encounter Medications at Time of Discharge Medication Sig Dispensed Refills Start Date End Date furosemide (LASIX) 40 mg Tablet Take 40 mg by mouth daily. gabapentin (NEURONTIN) 300 mg Capsule Take 300 mg by mouth 2 times daily. atorvastatin (LIPITOR) 40 mg Tablet Take 40 mg by mouth daily. levothyroxine (SYNTHROID) 125 mcg Tablet Take 112 mcg by mouth daily. 05/31/2019 spironolactone (ALDACTONE) 25 mg Tablet Take 25 mg by mouth daily. 05/22/2020 ibuprofen (ADVIL;MOTRIN) 600 mg Tablet Take 600 mg by mouth 3 times daily (with meals). 04/13/2017 amLODIPine (NORVASC) 10 mg Tablet Take 2.5 mg by mouth daily. 05/22/2020 lisinopril (PRINIVIL;ZESTRIL) 40 mg Tablet Take 10 mg by mouth daily. Taking 5 mg 02/26/2022 omeprazole (PRILOSEC) 20 mg Capsule, Delayed Release(E.C.) Take 20 mg by mouth daily. 05/31/2019 documented as of this encounter Progress Notes * Suzi Burkett RN - 03/30/2017 1:36 PM EST Patient discharge to home. IV removed, site benign. My assessment remains unchanged from my previous assessment. RN Discussed pain management with patient, pain tolerable. Patient medicated prior to discharge. Patient has all belongings and supplies needed. Patient received After Visit Summary. This was reviewed with patient and family, patient verbalizes understanding of AVS. All questions answered. Patient encouraged to call with questions or concerns. Patient discharged to home with family. documented in this encounter H&P Notes * Brant Chen MD - 03/30/2017 6:39 AM EST HPI ?? Alma Delia is a 71 yo female who is seen today in surgical consultation at the request of Dr. Burkett. Shepresents with her two sisters to discuss newly diagnosed left breast cancer. Alma Delia presented for screening mammography in February,. This revealed a possible asymmetry in the lower outer left breast. Right breast was normal. Call back views and u/s confirmed a solid 4mm mass at 5:00 in the left b reast. Biopsy was obtained which revealed IDC which is ER/NV+, her2-. She has no known breast masses, no adenopathy, no nipple discharge. ?? Alma Delia had a bone scan in [place] which was read as possible metastasis in the left tibia. Of note- she fractured this area recently. She has recovered well. ?? PMH HNT NIDDM not on meds Spinal stenosis Fractured left tibial plateau December, GERD ?? FH: Maternal first cousin with breast cancer Brother with rectal cancer Sister with PE ? SH: lives alone. Has good support from sisters who live in [place]. Non smoker. Has a son who lives nearby. Avid swimmer. ?? Review of Systems Constitutional: Negative for unexpected weight change (working on weight loss). HENT: Negative. Eyes: Negative. Respiratory: Negative. Cardiovascular: Negative. Gastrointestinal: Positive for diarrhea. Endocrine: Negative. Genitourinary: Negative. Musculoskeletal: Positive for back pain (secondary to spinal stenosis. surgery planned). Skin: Negative. Allergic/Immunologic: Negative. Neurological: Negative. Hematological: Negative. Does not bruise/bleed easily (sister secondary to PE. no known family history of clotting disorder). Psychiatric/Behavioral: Negative. ? Objective: Physical Exam Constitutional: She is oriented to person, place, and time. She appears well- developed and well-nourished. Cardiovascular: Normal rate and regular rhythm. Pulmonary/Chest: Effort normal and breath sounds normal. Lymphadenopathy: She has no cervical adenopathy. She has no axillary adenopathy. Right: No supraclavicular adenopathy present. Left: No supraclavicular adenopathy present. Neurological: She is alert and oriented to person, place, and time. Skin: Skin is warm and dry. Psychiatric: She has a normal mood and affect. ?? CBC, LFTs WNL Imaging: as in hPI. I have personally reviewed mammogram and u/s. ?? Assessment and Plan: ?? 71 yo female with radiographic stage I ER/NV+, HER2- IDC of the left breast. No symptomatic or chemical evidence of metastasis. Discussed options for surgery. Alma Delia has watched the ARNULFO video and has a good understanding of her options. After discussion of risks and benefits of mastectomy vs lumpectomy, she is interested in breast conservation. I think she is an excellent candidate for partial mastectomy with NLOC likely followed by radiation therapy. We also discussed the technique and rationale for sentinel node biopsy and we will proceed with this as well. ?? We briefly touched upon systemic adjuvant therapy. Alma Delia is aware that we will set up a medical oncology appointment for her. She is aware that endocrine therapy will be recommended and much, much less likely chemotherapy. ?? Risks of surgery including bleeding, infection, need for additional surgery and lymphedema were discussed and consent was obtained. ?? Alma Delia had a recent episode of afib. She is now on eliquis. Discussed with PCP and Alma Delia. Plan to proceed. Stable for OR. Anticoagulation held 3 days. documented in this encounter Miscellaneous Notes * Op Note - Brant Chen MD - 03/30/2017 12:27 PM EST [facility] Operative Note Patient Name: Digna Olson : [id number] MR#: [id number] Case Date: 03/30/2017 Surgeon: Surgeon(s) and Role: * Brant Chen MD - Primary Preoperative diagnosis: LEFT BREAST CANCER Postoperative diagnosis: left breast cancer Procedure(s) (LRB): MASTECTOMY PARTIAL (WRVU 10.13) (Left) MODIFIER WITH NEEDLE LOC., LESION #1 (Left) BIOPSY OR EXCISION OF LYMPH NODE(S), OPEN, DEEP AXILLARY NODE(S) (WRVU 6.43) (Left) INTRAOPERATIVE ID (MAPPING) SENTINEL LYMPH NODE,INCLUDES INJECTION (WRVU 2.5) (Left) MODIFIER SENTINEL NODE EXCISION (Left) Anesthesia: General Estimated Blood Loss: 6cc Specimens removed during surgery: Order Name Source Comment Collection Info Order Time SPECIMEN TO PATHOLOGY (SURGICAL OR DERM) LEFT BREAST CANCER left axillary sentinel node 03/30/2017 11:51 AM Time removed from patient: 11:50 AM SPECIMEN TO PATHOLOGY (SURGICAL OR DERM) LEFT BREAST CANCER left breast partial mastectomy Yes 03/30/2017 12:00 PM Time removed from patient: 12:00 PM SPECIMEN TO PATHOLOGY (SURGICAL OR DERM) LEFT BREAST CANCER deep/lateral margin left breast Yes 03/30/2017 12:08 PM Time removed from patient: 12:08 PM SPECIMEN TO PATHOLOGY (SURGICAL OR DERM) LEFT BREAST CANCER superficial margin left breast Yes 03/30/2017 12:09 PM Time removed from patient: 12:09 PM Surgical Closure: Primary Closure - closure of ALL tissue levels during the original surgery regardless of wires, wickes, drains, or other devices extruding through the incision Disposition: awakened from anesthesia, extubated and taken to the recovery room in a stable condition, having suffered no apparent untoward event. Condition: doing well without problems (Please see the Surgical Encounter Summary for any Implant and Specimen details pertinent to this patient.) HPI/Surgical Indications:Alma Delia is a 71 yo female with left breast cancer in the lower, central breast diagnosed after abnormal screening mammogram. She has opted for breast conservation. Procedure Description: Operative Procedure: Alma Delia was admitted through Same-Day Surgery. She was then brought to radiology for wire localization of the clip in the lower left breast and technetium injection. She was then brought to the Operating Room and laid supine on the operating table. Sedatives were administered intravenously and an LMA was placed. The left breast was prepped and draped in sterile fashion. Time-outconfirmed the patient's identity, the correct surgical site, and the administration of prophylacticantibiotics. Once the time out had been confirmed, attention was turned to the breast. Here an incision was made in the infra- mammary fold. A flap was elevated and the wire was brought into the wound. A circumferential core of tissue was widely excised. The tissue was inked on the anatomic margins and sent to Radiology where the clip andbiopsy site were confirmed to be in the surgical specimen with no closer margins radiographically. Given nodularity at the superficial /cranial margin, this was excised. The deep/lateral margin (including fascia) was also re-excised. The wound was irrigated and hemostasis achieved. The biopsy cavity was closed and the wound was closed in layers. Sterile dressings were applied. Attention was then turned to the axilla. Here an incision was made and brought through the clavipectoral fascia. Guided by the gamma probe, 3 sentinel nodes were identified and excised. [place] [id number]. Remaining count within the axilla was 1982. There was not palpable adenopathy. Satisfied that all sentinel nodes were removed, the wound was irrigated and hemostased and closed in layers. Infection Bundle used? N/A Attestation: Case Date: 03/30/2017 I performed this procedure without the involvement of a resident. BRANT CHEN MD 03/30/2017 documented in this encounter Plan of Treatment Not on file documented as of this encounter Procedures Procedure Name Priority Date/Time Associated Diagnosis Comments SPECIMEN TO PATHOLOGY Routine 03/30/2017 12:09 PM EST SPECIMEN TO PATHOLOGY Routine 03/30/2017 12:08 PM EST SPECIMEN TO PATHOLOGY Routine 03/30/2017 12:00 PM EST SPECIMEN TO PATHOLOGY Routine 03/30/2017 11:51 AM EST SURGICAL PATHOLOGY REPORT Routine 03/30/2017 11:50 AM EST MODIFIER SENTINEL NODE EXCISION Yes 03/30/2017 11:17 AM EST LEFT BREAST CANCER INTRAOPERATIVE ID (MAPPING) SENTINEL LYMPH NODE,INCLUDES INJECTION (WRVU 2.5) Yes 03/30/2017 11:17 AM EST LEFT BREAST CANCER BIOPSY OR EXCISION OF LYMPH NODE(S), OPEN, DEEP AXILLARY NODE(S) (WRVU 6.43) Yes 03/30/2017 11:17 AM EST LEFT BREAST CANCER MODIFIER WITH NEEDLE LOC., LESION #1 Yes 03/30/2017 11:17 AM EST LEFT BREAST CANCER MASTECTOMY PARTIAL (WRVU 10.13) Yes 03/30/2017 11:17 AM EST LEFT BREAST CANCER MAMMO DIRECT DIGITAL WITH CAD LEFT Routine 03/30/2017 9:15 AM EST documented in this encounter Results * Specimen to Pathology (surgical or derm) (03/30/2017 12:09 PM EST) AP Specimen 03/30/2017 12:0 9 PM EST 03/30/2017 12:09 PM EST Narrative [facility] - 03/30/2017 12:09 PM EST Specimen requisition ordered. ??Separate Pathology report to follow Brant Chen MD PATHOLOGY/CYTOLOGY ORDERABLES [facility] [place] [address] * Specimen to Pathology (surgical or derm) (03/30/2017 12:08 PM EST) AP Specimen 03/30/2017 12:0 8 PM EST 03/30/2017 12:08 PM EST Narrative [facility] - 03/30/2017 12:08 PM EST Specimen requisition ordered. ??Separate Pathology report to follow Brant Chen MD PATHOLOGY/CYTOLOGY ORDERABLES Performing Organization Address [facility] Co de Phone Number [facility] [place] [address] * Specimen to Pathology (surgical or derm) (03/30/2017 12:00 PM EST) AP Specimen 03/30/2017 12:0 0 PM EST 03/30/2017 12:00 PM EST Narrative [facility] - 03/30/2017 12:00 PM EST Specimen requisition ordered. ??Separate Pathology report to follow Brant Chen MD PATHOLOGY/CYTOLOGY ORDERABLES Performing Organization Address [facility] [place] [place] [address] * Specimen to Pathology (surgical or derm) (03/30/2017 11:51 AM EST) AP Specimen 03/30/2017 11:5 1 AM EST 03/30/2017 11:51 AM EST Narrative [facility] - 03/30/2017 11:51 AM EST Specimen requisition ordered. ??Separate Pathology report to follow Brant Chen MD PATHOLOGY/CYTOLOGY ORDERABLES Performing Organization Address [facility] de Phone Number [facility] [place] [address] * Surgical Pathology Report (03/30/2017 11:50 AM EST) Pathologist [facility] Surgical Pathology Report [id number] ? Location: [facility]; [facility]; A The signing pathologist has (i) examined the relevant preparation(s) for the specimen(s) and (ii) rendered or confirmed the diagnosis(es). . ?Surgical Pathology DIAGNOSIS A,B - See Synoptic C - Left breast, Deep/lateral margin re-excision - ?Benign fatty breast tissue. D - Left breast, Superficial margin re-excision - ?Benign fatty breast tissue. See Note Note - [place] ink (indicating additional cranial margin) is also present on this superficial margin re-excision. ---- Specimen Parts: ?? A - Left axilliary sentinel node B - Left breast partial mastectomy Specimen ? Procedure: ??Excision with image-guided localization ? Lymph Node Sampling: ?? [place] lymph node(s) ? Specimen Laterality: ?? Left Tumor ? 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 Glandular (Acinar) / Tubular Differentiation: ?Score 3 ? Nuclear Pleomorphism: ?? Score 2 ? Mitotic Rate: ?? Score 1 ? Overall Grade: ?? Grade 2 (scores of 6 or 7) ? Tumor Size: Size of Largest Invasive Carcinoma: ?6 mm ? Ductal Carcinoma In Situ (DCIS): ?No DCIS is present ? Tumor Extent ?Macroscopic and Microscopic Extent of Tumor ? Skin: ??Skin is not present ? Skeletal Muscle: ?? No skeletal muscle is present ? Accessory Tumor Findings ?Lymph-Vascular Invasion: ?? Not identified ?Microcalcificat ions: ?? Present in invasive carcinoma Margins ? Invasive Carcinoma: ?? Margins uninvolved by invasive carcinoma ?Distance of Invasive Carcinoma to Margins ? Cranial: ??2 mm ? Distance From Other Specified Margin: ?from all other RM ?? >10 ??mm ? Ductal Carcinoma In Situ (DCIS): ?DCIS not present in specimen Lymph Nodes ? [place] Lymph Nodes: ?? [place] lymph node biopsy performed ? Number of [place] Nodes Examined: ?3 ? Number of Lymph Node(s) Examined (sentinel and nonsentinel): ? 3 ? Lymph Node Involvement: ?? None identified Stage (pTNM) ? Pathological Stage: ?? pT1b ??pN0 ??Not applicable Additional Findings ? Additional Pathologic Findings: ?? Scar from the core biopsy. Tumor Block(s): ?? B2 Normal Block(s): ?? B1 . DIAGNOSIS CAP eCC July 2015 Annual Release Electronically signed by: ??Debra Chávez DO Verified: ??04/01/2017 ?Pathologist Performed at: ??[facility], [place], [place] CLINICAL INFORMATION Specimen Submitted: A - Left axillary sentinel node B - Left breast partial mastectomy C - Deep/lateral margin left breast D - Superficial margin left breast Clinical History: Left breast cancer Clinical Diagnosis: Same SPECIMEN PROCESSING A - ??Labeled/Fixativ e: Left axillary sentinel node, fresh. Quantity/Size: Multiple, 4.5 x 3.5 x 2.0 cm. Tissue Description: Yellow, lobular adipose tissue. Sectioning reveals three lymph nodes, the largest 2 cm. Sections/Processi ng: (1-2) one node serially sectioned; (3-4) one node serially sectioned; (5-6) one node serially sectioned. (R6) B - ??Labeled/Fixativ e: Left breast partial mastectomy, fresh. SPECIMEN DESCRIPTION Resection Specimen: Intact breast excisional biopsy with needle localization wire in place. Qty/Size/Weight: Single, 5.4 x 4.1 x 1.4 cm, 19.9 grams. Radiograph: ??FINDINGS: The intact wire and clip are in the specimen. The faint residual mass ??lesion is believed to project around the distal aspect of the wire and there are ??no close margins. per [facility] Radiology . Specimen Description: According to the established protocol the ink designations are red (medial), yellow (lateral), orange (cranial), green (caudal), black (deep) and blue (superficial). Tissue Sections: The specimen is serially sectioned perpendicular to the long axis from lateral to medial into X slices, each averaging 0.45 cm in thickness. LESION Description: Biopsy site. Size: 0.8 x 0.4 x 0.4 cm. Color: [place] and yellow. Consistency: Soft. Location: Slices III and IV. Nearest Margin: 0.6 cm to the cranial margin. Other Margins: 0.8 cm to the deep margin, 1.0 cm to the superficial margin, ? > 2 cm from all other margins. OTHER Parenchyma: Predominately fatty with scant fibrous tissue. Wire/Clip: Biopsy marker clip identified within slice IV. SECTIONS/PROCESSI NG: (1) product representative slice I, lateral margin; (2) slice III, lesion to cranial margin; (3-5) remainder of slice III; (6) slice IV, lesion to cranial margin (clip); (7-8) remainder of slice IV; (9) product representative slice V; (10) product representative slice X, medial margin. (R10) Ischemic Time: Two hours, 14 minutes C - ??Labeled/Fixativ e: Deep/lateral margin left breast, fresh. Quantity/Size: Single, 3.5 x 2.1 x 1.3 cm. Tissue Description: Predominately fatty portion of breast tissue which is received inked black and yellow on one aspect. . SPECIMEN PROCESSING Sections/Processi ng: Serially sectioned. (T7) D - ??Labeled/Fixativ e: Superficial margin left breast, fresh. Quantity/Size: Single, 2.7 x 2.5 x 1.0 cm. Tissue Description: Predominately fatty portion of breast tissue which is received inked blue and orange on one aspect. Sections/Processi ng: Serially sectioned. (T3) ??sns [facility] 03/30/2017 11:5 0 AM EST Brant Chen MD PATHOLOGY/CYTOLOGY ORDERABLES [facility] [place] [address] * Mammo Direct Digital Left (03/30/2017 9:15 AM EST) Anatomical Region Laterality Modality Breast Left Mammography Impressions 03/30/2017 10:41 AM EST Impression: Status post successful ultrasound-guided wire localization for left breast biopsy clip and sentinel node injection. Images were annotated on PACS for the operating surgeon. The radiotracer injection was administered under the supervision of authorized user Dr. Emre Kenny. I have personally reviewed the image(s) and the residents interpretation and agree with the findings, ROBERT THOMPSON at 03/30/2017 10:41 AM Narrative 03/30/2017 10:41 AM EST Examination: Ultrasound-guided NEEDLE LOCALIZATION OF ??left breast Indication: PLEASE NEEDLE LOCALIZE THE LEFT BREAST CANCER. Technique:Informed consent was confirmed and a timeout procedure was performed per protocol. Using sterile technique and local anesthetic (less than 5 cc's of 1% lidocaine) a needle localization of the left breast was performed using ultrasound guidance. The needle was positioned through the mass. After confirming satisfactory positioning of the needle the wire was deployed and a sonographic image was obtained. This image confirms the wire traverses the lesion and the tip of the wire is 1.2 cm beyond the lesion. There were no complications. Images were annotated on PACS for the operating surgeon. A sentinel node injection was performed using less than 1.7 milliCuries of Tc-99m sulfur colloid. ??Half the dose was injected subcutaneously and half injected intradermally. No additional imaging was performed. Procedural attestation: Resident: Dr. Aleena De Jesus I was present with the resident for the arroyo component(s) of the procedure and otherwise remained immediately available for the duration of the procedure. I attest to having personally viewed the images/test and approve the above interpretation. Robert DRUMMOND MAMMO ORDERABL ES documented in this encounter Visit Diagnoses Not on filedocumented in this encounter Administered Medications Inactive Administered Medications - up to 3 most recent administrations Medication Order MAR Action Action Date Dose Rate Site acetaminophen (TYLENOL) tablet 650 mg 650 mg, Oral, ONCE, 1 dose, On Thu03/30/17 at 0815, Maximum dose of acetaminophen is 4000 mg from all sources in 24 hours., Day of Surgery (Day of Procedure), Routine Given 03/30/2017 9:30 AM EST 650 mg BUpivacaine (PF) (MARCAINE) 0.5 % (5 mg/mL) injection ONCE PRN, Starting on Thu03/30/17 at 1213, Until Thu03/30/17 at 1537, Intra-Operative (Intra-Procedure), Routine Given 03/30/2017 12:13 PM EST 10 mLs 19- Surgical Site lactated Ringers infusion 1,000 mL 1,000 mL, at 100 mL/hr, Intravenous, CONTINUOUS, Starting on Thu03/30/17 at 0815, Until Thu03/30/17 at 1336, Day of Surgery (Day of Procedure) New Bag 03/30/2017 8:15 AM EST 1,000 mLs 100 mL/hr lidocaine (XYLOCAINE) 10 mg/mL (1 %) injection 3 mg 3 mg (0.3 mL), Subcutaneous, ONCE PRN, 1 dose, Starting on Thu03/30/17 at 0759, Until Thu03/30/17 at 1213, for discomfort with PIV insertion, Day of Surgery (Day of Procedure), Routine Given 03/30/2017 12:13 PM EST 10 mLs 19- Surgical Site traMADol (ULTRAM) tablet 50 mg 50 mg, Oral, EVERY 6 HOURS PRN, Starting on Thu03/30/17 at 1226, Until Thu03/30/17 at 1537, Pain, Routine documented in this encounter Active and Recently Administered Medications Times are shown in EST. Scheduled Medication Order 03/28/2017 03/29/2017 03/30/2017 acetaminophen (TYLENOL) tablet 650 mg (COMPLETED) 650 mg, Oral, ONCE, 1 dose, On Thu03/30/17 at 0815, Maximum dose of acetaminophen is 4000 mg from all sources in 24 hours., Day of Surgery (Day of Procedure), Routine 0930 (Given - Provid er: Anna Coy RN) ceFAZolin (ANCEF) 2g in dextrose 5% 100 mL (COMPLETED) 2 g, Intravenous, EVERY 3 HOURS, 1 dose, First dose on Thu03/30/17 at 0700, Administer over 30 Minutes, Intra-Operative (Intra-Procedure), Indication for (Active or Suspected): Prophylaxis 1130 (Given - Provid er: Laura Koo CRNA) Continuous Medication Order 03/28/2017 03/29/2017 03/30/2017 lactated Ringers infusion 1,000 mL (CANCELED) 1,000 mL, at 100 mL/hr, Intravenous, CONTINUOUS, Starting on Thu03/30/17 at 0815, Until Thu03/30/17 at 1336, Day of Surgery (Day of Procedure) 0815 (New Bag - Prov ider: Anna Coy RN)1218 (Anesthesia Volume Adjustment - Provider: Laura Koo CRNA) PRN Medication Order 03/28/2017 03/29/2017 03/30/2017 BUpivacaine (PF) (MARCAINE) 0.5 % (5 mg/mL) injection (CANCELED) ONCE PRN, Starting on Thu03/30/17 at 1213, Until Thu03/30/17 at 1537, Intra-Operative (Intra-Procedure), Routine 1213 (Given - Provid er: Brant Chen MD) lidocaine (XYLOCAINE) 10 mg/mL (1 %) injection 3 mg (COMPLETED) 3 mg (0.3 mL), Subcutaneous, ONCE PRN, 1 dose, Starting on Thu03/30/17 at 0759, Until Thu03/30/17 at 1213, for discomfort with PIV insertion, Day of Surgery (Day of Procedure), Routine 1213 (Given - Provid er: Brant Chen MD) traMADol (ULTRAM) tablet 50 mg 50 mg, Oral, EVERY 6 HOURS PRN, Starting on Thu03/30/17 at 1226, Until Thu03/30/17 at 1537, Pain, Routine documented in this encounter Care Teams Certified Court/Medical Interpreter Relationship Specialty Start Date End Date Ana Her MD [address] [place] [address] PCP - General 07/29/13 documented as of this encounter
--- OUTSIDE RECORDS SUMMARY | 2023-11-18 15:09 | XMS_ITS | Encounter Summary ---
Author Organization [facility] [address] Care Team Providers Care Landscaping Manager Name Role Phone Ana Her MD Primary Care Provider [phone] Encounter Details Date Type Department Care Team (Late st Contact Info) Description 04/23/2017 [place] [address] Marjorie Ariza Social History Tobacco Use Types Packs/Day Years [...] as of this encounter Progress Notes * Marjorie Ariza - 04/23/2017 2:43 PM EST Returned Goods Receiving Clerk Hand Trimmer met with pt after consultation with medical oncologist, Dr. Lowry. Pt reported that she has decided to take hormonal tx and declined both radiation and potential chemotherapy. She states that there are other health concerns that she must address at this time (A-Fib, etc). Pt will return in 6 months to follow up with Dr. Lowry. Pt states that she has Medicare and BC/BS. This will not change in the upcoming yr. Pt was encouraged to connect with CCM if any needs arise. P: Student and CCM will continue to be available to pt to address psychosocial needs. documented in this encounter Plan of Treatment Not on file documented as of this encounter Visit Diagnoses Not on filedocumented in this encounter Care Teams Landscaping Manager Relationship Specialty Start Date End Date Ana Her MD [address] [facility] [address] [place] [address] PCP - General 07/29/13 documented as of this encounter
--- OUTSIDE RECORDS SUMMARY | 2023-11-18 15:09 | XMS_ITS | Encounter Summary ---
[place] [address] Care Team Providers Care Consolidator Name Role Phone Ana Her MD Primary Care Provider [phone] Reason for Visit * Reason Comments Follow Up Surgery Encounter Details Date Type Department Care Team (Late st Contact Info) Description 07/13/2017 1:30 PM EDT Office [place] [address] Hiral Padgett APRN [facility] [place] [address] History of breast cancer Social History Tobacco [...] Progress Notes * Hiral Padgett APRN - 07/13/2017 1:30 PM EDT Digna is a 71 [address] patient of Dr Chen who returns today interval surgical follow up. On 03/30/17 she underwent a left breast WLE/sentinel node excision. Pathology showed: Specimen Parts: ?? A - Left axilliary sentinel node B - Left breast partial mastectomy Specimen ?Procedure: ??Excision with image-guided localization ?Lymph Node Sampling: ?? [place] lymph node(s) ?Specimen Laterality: ?? Left Tumor [...] ?DCIS not present in specimen Lymph Nodes ?[place] Lymph Nodes: ?? [place] lymph node biopsy performed ?Number of [place] Nodes Examined: ?3 ?Number of Lymph Node(s) Examined (sentinel and nonsentinel): ? 3 ?Lymph Node Involvement: ?? None identified Stage (pTNM) ?Pathological Stage: ?? pT1b ??pN0 ??Not applicable Additional Findings ?Additional Pathologic Findings: ?? Scar from the core biopsy. Tumor Block(s): ?? B2 Normal Block(s): ?? B1 Alma Delia opted against XRT but is on anastrozole,followed by Dr Lowry. No breast concerns today. Is due to see Dr Lowry in October. Objective: Physical Exam Constitutional: She is oriented [...] is warm and dry. Assessment and Plan: 71 yo female S/p left breast WLE/sent node for early stage invasive breast cancer. New baseline left mammo on 10/2017 at the time she sees Dr Lowry. I will see her in March for a CBE and a mammo or [...] Personal history of malignant neoplasm of breast History of breast cancer Personal history of malignant neoplasm of breast documented in this encounter Care Teams Consolidator Relationship Specialty Start Date End Date Ana Her MD [address] [place] [address] PCP - General 07/29/13 documented as of this encounter
--- OUTSIDE RECORDS SUMMARY | 2023-11-18 15:09 | XMS_ITS | Encounter Summary ---
[place] [address] Care Team Providers Care Associate Drafter Name Role Phone Ana Her MD Primary Care Provider [phone] Reason for Visit * Reason Comments Low Back Pain Encounter Details Date Type Department Care Team (Late st Contact Info) Description 08/30/2014 8:35 AM EDT Office [place] [phone] Michelle Hurtado APRN [facility] [place] [address] Neurogenic claudication due to lumbar spinal stenosis [...] Sign Reading Time Taken Comments Blood Pressure 157/68 08/30/2014 9:12 AM EDT Pulse - - Temperature - - Respiratory Rate - - Oxygen Saturation - - Inhaled Oxygen Concentration - - Weight 97.5 kg (215 lb) 08/30/2014 9:12 AM EDT Height 170.2 cm (5' 7) 08/30/2014 9:12 AM EDT Body Mass Index 33.67 08/30/2014 9:12 AM EDT documented in this encounter Progress Notes * Michelle Hurtado, BIOLOGICAL SCIENCES INSTRUCTOR - 08/30/2014 9:37 AM EDT CHIEF COMPLAINT: Low back pain and fatigue with weightbearing activity. HISTORY OF PRESENT ILLNESS: Digna Olson is a 69 y.o. female seen in the Spine Center today in consultation for Ana Her MD (PCP). She presents with a chief complaint of low back pain and fatiguewith weightbearing activity. She notes an acute episode of pain in her right anterior iliac region and proximal right anterior thigh that occurred just over a month ago in mid July when she began exercising & swimming at her local gym. This pain resolved when she began yoga exercises but then transferred to the left hip region. Left hip pain has also since resolved. She denies groin pain. She continues to experience a tightness in her low back when she wakes up in the morning and with weightbearing activity. She recently visited her daughter in [place] and is frustrated she was not able to do much walking or sightseeing due to her low back pain with ambulation. She experiences apressure in her low back with standing or walking that is relieved with sitting or forward flexion and this has been an ongoing issue for some time now. She estimates being able to walk about 100 yards and stand for about 5 minutes maximum before needing to sit down and rest. She gets pretty immediate relief when she sits down or leans forward. She normally has no pain in her low back when she issitting but did experience low back pain while sitting during the acute episode in July. Treatments to date have included: LESIs in [place] at L4-5 in 2013-no relief, Flexeril-helpful, physical therapy-not effective. REVIEW OF SYSTEMS: negative for any GI or symptoms, fevers, night sweats, chills, weight loss, saddle anesthesia or loss of bowel or bladder control. She denies myelopathic symptoms such as gait disturbance, gait imbalance, or difficulty with fine motor control. PAST MEDICAL HISTORY: Hypertension, hypothyroidism, hyperlipidemia, small/stable AAA & GERD. PAST SURGICAL HISTORY: Cholecystectomy & ORIF right ankle. FAMILY HISTORY: Significant for heart disease in both parents at a young age and PE in hersister at 55. SOCIAL HISTORY: She does not smoke and drinks alcohol socially. 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 MEDICATIONS & ALLERGIES: reviewed with the patient and are in eD-H. PHYSICAL EXAMINATION: Height: 5'7. Weight: 215 lbs. BMI: 33.7. This is an obese elderly female in no acute distress. She ambulates with a steady gait. She is ableto perform tandem heel-toe walk with support. She stands with mild scoliosis. Her lumbar spine is non-tender to palpation. Her right sciatic notch is tender to palpation. Trunk flexion provides relief. Trunk extension is pain free. Straight leg raise is negative bilaterally. Strength is 5/5 in all lower extremity muscles groups and bilateral EHLs. Touch sensation is normal and symmetrical in bilateral lower extremities. Deep tendon reflexes are 1/4 at the knees and trace at the ankles bilaterally. There is no clonus. Babinski is with down-going toes bilaterally. Maribel's reflex is absent caryl aterally. Internal/External hip rotation is full and pain free bilaterally in sitting position. IMAGIN08/16/14 Lumbar MRI w/o contrast: Moderately severe central canal stenosis at L2-3 secondary to degenerative changes. Degenerative changes and a central disc herniation at L4-5 results in marked foraminal stenosis. Degenerative changes at L5-S1 result in bilateral foraminal stenosis. ASSESSMENT: Neurogenic claudication due to lumbar spinal stenosis. PLAN: Non-surgical treatment options including PT, NSAIDs, gabapentin, and injections, as well as the option for surgical consult, were reviewed with the patient. We discussed the low likelihood thatphysical therapy would be helpful with her condition. We also discussed the option of CT guided lumbar epidural steroid injection if she failed to respond to fluoroscopically guided injections given the severity of her stenosis. She is unsure if she would like to try any further injection therapy given that she did not respond well to past injections. 1) She is going to be used the Shared Decision Making video on spinal stenosis treatment options and will call if she decides she would like to schedule an injection (which would be an L3-4 vs. L4-5 interlaminar epidural steroid injection) or surgical consult. I did advise the patient we did not receive full imaging from her lumbar MRI and she will need to get this on a CD and bring it if she schedules an injection or surgical consult. I also advised her she would need to come in early for AP and lateral lumbar x-rays with flexion/extension views which will need to be ordered if she elects for a surgical consult. 2) I suggested she may find use of a cane or walking stick helpful with ambulation. 3) I also suggested use of a stationary bike may be a tolerable exercise for her. 4) I reviewed maximum daily dose of Aleve as well as Advil and suggested that she try taking one ofthese more regularly. Follow-Up: As needed pending review of Shared Decision Making video on spinal stenosis treatment options. All questions were answered and the patient is in agreement with the above treatment plan. This was a counseling dominated visit with approximately 25 minutes of this 40 minute encounter spent in face to face counseling, medical decision making, and review of imaging and treatment options. Thank you for the opportunity to participate in the care of this patient. Michelle Hurtado MS, BIOLOGICAL SCIENCES INSTRUCTOR, SLUDGE MILL OPERATOR-C [facility] documented in this encounter Plan of Treatment Not on file documented as of this encounter Visit Diagnoses Diagnosis Neurogenic claudication due to lumbar spinal stenosis Spinal stenosis, lumbar region, with neurogenic claudication documented in this encounter Care Teams Associate Drafter Relationship Specialty Start Date End Date Ana Her MD [address] [place] [address] PCP - General 07/29/13 documented as of this encounter
--- OUTSIDE RECORDS SUMMARY | 2023-11-18 15:09 | XMS_ITS | Encounter Summary ---
[place] [address] Care Team Providers Care Data Integration Developer Name Role Phone Ana Her MD Primary Care Provider [phone] Reason for Visit * Reason Onset Date Comments Referral 07/29/2013 Encounter Details Date Type Department Care Team (Late st Contact Info) Description 07/29/2013 Telephone [place] [phone] Sophia Palacios Referral Social History Tobacco Use Types Packs/Day Years Used Date Smoking Tobacco: Never Assessed Sex and Gender Information Value Date Recorded Sex Assigned at Not on file Gender Identity Not on file Sexual Orientation Not on file documented as of this encounter Miscellaneous Notes * Telephone Encounter - Angela Linares - 08/04/2013 8:12 AM EDT Sent letter for patient to call and schedule referral. * Telephone Encounter - Linda Samson - 08/02/2013 8:46 AM EDT Left msg for patient to call and schedule referral * Telephone Encounter - Sophia Palacios - 07/29/2013 4:46 PM EDT .I left a message for patient to call about scheduling their referral. documented in this encounter Plan of Treatment Not on file documented as of this encounter Visit Diagnoses Not on filedocumented in this encounter Care Teams Data Integration Developer Relationship Specialty Start Date End Date Ana Her MD [address] [facility] [address] [place] [address] PCP - General 07/29/13 documented as of this encounter
--- OUTSIDE RECORDS SUMMARY | 2023-11-18 15:09 | XMS_ITS | Encounter Summary ---
Author Organization [facility] [place] [address] Care Team Providers Care Cardiovascular Or Nurse Name Role Phone Ana Her MD Primary Care Provider [phone] Encounter Details Date Type Department Care Team (Latest Contact Info) Description 03/30/2017 8:30 AM EST Hospital En[place] [address] Malika Chen MD [facility] [place] [address] Malignant neoplasm of upper-outer quadrant of left breast in female, estrogen receptor positive Discharge Disposition: Home Social History Tobacco Use [...] Name Priority Date/Time Associated Diagnosis Comments MAMMO SPECIMEN Routine 03/30/2017 12:10 PM EST Malignant neoplasm of upper-outer quadrant of left breast in female, estrogen receptor positive documented in this encounter Results * Mammo Specimen (03/30/2017 12:10 PM EST) Anatomical Region Laterality Modality Breast N/A Mammography Impressions 03/30/2017 12:13 PM EST Positive specimen x-ray as described. Results phoned to the operating surgeon intraoperatively. Narrative 03/30/2017 12:13 PM EST EXAMINATION: Specimen x-ray INDICATION: Intraoperative specimen image for adequacy of lesion and/or clip removal TECHNIQUE: A single projection specimen x-ray from the left breast is obtained superimposed on alphanumeric grid COMPARISON: This is correlated with preoperative imaging FINDINGS: The intact wire and clip are in the specimen. The faint residual mass lesion is believed to project around the distal aspect of the wire and there are no close margins. Malika Chen MD IMG MAMMO ORDERABLE S documented in this encounter Visit Diagnoses Diagnosis Malignant neoplasm of upper-outer quadrant of left breast in female, estrogen receptor positive documented in this encounter Care Teams Cardiovascular Or Nurse Relationship Specialty Start Date End Date Ana Her MD [address] [place] [address] PCP - General 07/29/13 documented as of this encounter
--- OUTSIDE RECORDS SUMMARY | 2023-11-18 15:09 | XMS_ITS | Encounter Summary ---
[place] [address] Care Team Providers Care Scholastic Aptitude Test Grader Name Role Phone Ana Her MD Primary Care Provider [phone] 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 * Surgical (Routine) - Closed Specialty Diagnoses / Procedures Referred By Christiano hackett Referred To Contact Orthopaedics Diagnoses Lumbar spinal stenosis Michelle Hurtado APRN [facility] [place] [address] [address] [address] [place] [address] Referral ID Status Reason Start Date Expiration Date V isits Requested Visits Authorized [id number] Closed Consult, Test & Treat 09/08/2014 09/08/2015 3 3 Encounter Details Date Type Department Care Team (Late st Contact Info) Description 09/08/2014 Orders [place] [address] Michelle Hurtado LABORER HIGH DENSITY PRESS [facility] [place] [address] Lumbar spinal stenosis Social History Tobacco Use Types Packs/Day Years Used Date Smoking Tobacco: Never Smokeless Tobacco: Never Sex and Gender Information Value Date Recorded Sex Assigned at Not on file Gender Identity Not on file Sexual Orientation Not on file documented as of this encounter Plan of Treatment Scheduled Referrals Name Type Priority Associated Diagnoses Orde r Schedule Referral to Spine Center Outpatient Referral Routine Lumbar spinal stenosis Ordered: 09/08/2014 documented as of this encounter Visit Diagnoses Diagnosis Lumbar spinal stenosis Spinal stenosis, lumbar region, without neurogenic claudication documented in this encounter Care Teams Scholastic Aptitude Test Grader Relationship Specialty Start Date End Date Ana Her MD [facility] [address] [facility] [address] [place] [address] PCP - General 07/29/13 documented as of this encounter
--- OUTSIDE RECORDS SUMMARY | 2023-11-18 15:09 | XMS_ITS | Encounter Summary ---
[place] [address] Care Team Providers Care Gang Mower Operator Name Role Phone Ana Her MD Primary Care Provider [phone] Encounter Details Date Type Department Care Team (Late st Contact Info) Description 05/06/2017 Telephone Radiation Oncology at [address] [address] Maria A Antonio RN Social History Tobacco Use Types Packs/Day [...] encounter Miscellaneous Notes * Telephone Encounter - Maria A Antonio RN - 05/06/2017 10:43 AM EST Background: Dr. Velez requested telephone call to patient to confirm her wishes regarding xrt. Telephone call to patient who confirmed that she is not interested in radiation but that she is moving forward with taking arimidex. Digna thanked Dr. Velez for all of the information that she gaveher and feels that this is the right decision for her. Dr. Velez updated with this note. documented in this encounter Plan of Treatment Not on file documented as of this encounter Visit Diagnoses Not on filedocumented in this encounter Care Teams Gang Mower Operator Relationship Specialty Start Date End Date Ana Her MD [address] [facility] 1 [place] [address] PCP - General 07/29/13 documented as of this encounter
--- OUTSIDE RECORDS SUMMARY | 2023-11-18 15:09 | XMS_ITS | Encounter Summary ---
Author Organization [facility] [place] [address] Care Team Providers Care Wash And Greaser Name Role Phone Ana Her MD Primary Care Provider [phone] Encounter Details Date Type Department Care Team (Latest Contact Info) Description 02/12/2017 - 02/12/2017 11:59 PM EDT Hospital Encounter [place] [phone] Maryam Yee MD [facility] [place] [address] Screening breast examination Discharge Disposition: Home Social [...] Comments FILM LIBRARY STORAGE ONLY MAMMO Routine 02/12/2017 12:00 AM EDT Screening breast examination documented in this encounter Results * Film Library- Storage Only Mammo (02/12/2017 12:00 AM EDT) Narrative [facility] - 02/19/2017 1:47 PM EDT This exam is for storage only and is auto-finalizing. Maryam Yee MD IMG FILM LIBRARY O RDERABLES [place], [place] documented in this encounter Visit Diagnoses Diagnosis Screening breast examination (Not by Mammogram) Other screening breast examination documented in this encounter Care Teams Wash And Greaser Relationship Specialty Start Date End Date Ana Her MD [address] [place] [address] PCP - General 07/29/13 documented as of this encounter
--- OUTSIDE RECORDS SUMMARY | 2023-11-18 15:09 | XMS_ITS | Encounter Summary ---
[place] [address] Care Team Providers Care Scaleman Name Role Phone Ana Her MD Primary Care Provider [phone] Encounter Details Date Type Department Care Team (Late st Contact Info) Description 04/09/2017 Abstract Radiation Oncology at [address] [phone] Maria A Antonio, RN Social History Tobacco Use Types Packs/Day [...] on filedocumented in this encounter Care Teams Scaleman Relationship Specialty Start Date End Date Ana Her MD [address] [place] [address] PCP - General 07/29/13 documented as of this encounter
--- OUTSIDE RECORDS SUMMARY | 2023-11-18 15:09 | XMS_ITS | Encounter Summary ---
Author Organization [facility] Address [facility] [place] [address] Care Team Providers Care Workforce Management Analyst Name Role Phone Ana Her MD Primary Care Provider [phone] Encounter Details Date Type Department Care Team (Latest Contact Info) Description 10/28/2016 - 10/28/2016 11:59 PM EDT Hospital Encounter [place]iology [place] [phone] Ricky Lowry MD [facility] HEMATOLOGY/[place] [address] Discharge Disposition: Home Social History Tobacco Use [...] Name Priority Date/Time Associated Diagnosis Comments FILM LIBRARY- STORAGE ONLY DXA IMAGES Routine 10/28/2016 12:00 AM EDT documented in this encounter Results * Film Library- Storage Only DXA Images (10/28/2016 12:00 AM EDT) Narrative [facility] - 04/24/2017 2:13 PM EST This exam is for storage only and is auto-finalizing. Ricky Lowry MD IMG FILM LIBRARY ORD ERABLES [place], [place] documented in this encounter Visit Diagnoses Not on filedocumented in this encounter Care Teams Workforce Management Analyst Relationship Specialty Start Date End Date Ana Her MD [address] [place] [address] PCP - General 07/29/13 documented as of this encounter
--- OUTSIDE RECORDS SUMMARY | 2023-11-18 15:09 | XMS_ITS | Encounter Summary ---
[place] [address] Care Team Providers Care Junior Account Executive Name Role Phone Ana Her MD Primary Care Provider [phone] Encounter Details Date Type Department Care Team (Late st Contact Info) Description 05/19/2017 Telephone Hematology [place] [phone] Sandy Chapman Social History Tobacco Use Types Packs/Day Years [...] encounter Miscellaneous Notes * Telephone Encounter - Sandy Chapman - 05/19/2017 12:20 PM EST Age at diagnosis: 71 Date of diagnosis: 2016 Place of diagnosis: Internal Date of initial appointment: 03/03/17 Surgeon: Gustavo Referral to Medical Oncology: Yes, Internal Medical Oncologist:Lucien Referral to Radiation Oncology:Yes External Radiation Oncologist: Rosie Referral to Plastic Surgery: No documented in this encounter Plan of Treatment Not on file documented as of this encounter Visit Diagnoses Not on filedocumented in this encounter Care Teams Junior Account Executive Relationship Specialty Start Date End Date Ana Her MD [address] [place] [address] PCP - General 07/29/13 documented as of this encounter
--- OUTSIDE RECORDS SUMMARY | 2023-11-18 15:09 | XMS_ITS | Encounter Summary ---
Author Organization Formerly [facility] [place] [address] Care Team Providers Care Humanities Coordinator Name Role Phone Ana Her MD Primary Care Provider [phone] Reason for Visit * Reason Comments Schedule Office Case Encounter Details Date Type Department Care Team (Late st Contact Info) Description 04/23/2017 2:00 PM EST Office Visit [place] [address] Ricky Lowry MD [facility] HEMATOLOGY/[place] [address] Malignant neoplasm of lower-outer quadrant of left [...] Sign Reading Time Taken Comments Blood Pressure 140/85 04/23/2017 1:52 PM EST Pulse 105 04/23/2017 1:52 PM EST Temperature 36.3 ??C (97.3 ??F) 04/23/2017 1:52 PM ES T Respiratory Rate 18 04/23/2017 1:52 PM EST Oxygen Saturation 100% 04/23/2017 1:52 PM EST Inhaled Oxygen Concentration - - Weight 94.9 kg (209 lb 3.2 oz) 04/23/2017 1:52 P M EST Height 166.2 cm (5' 5.43) 04/23/2017 1:52 PM ES T Body Mass Index 34.35 04/23/2017 1:52 PM EST documented in this encounter Progress Notes * Ricky Lowry MD - 04/23/2017 2:00 PM EST Initial Medical Oncology Visit New Breast Cancer Ms. Olson is a 71 year old female, here today in consultation at the request of Dr. Chen andFIORDALIZA Tapia to review her status, and to discuss her options for further therapy. HPI: Diagnosis of breast cancer stemming from a screening mammogram performed in February of this year. Been 3 years before the prior scan. This mammogram showed possible asymmetry in the lower outer left breast (0.4 cm irregular mass in the left breast, 6:00 radian, 12 cm from the nipple). The right breast was normal. 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 Benign fatty breast tissue. D - Left breast, Superficial margin re-excision - ? Benign fatty breast tissue. See Note A - Left axilliary sentinel node B - Left breast partial mastectomy Specimen ?Procedure: ??Excision with image-guided localization ?Lymph Node Sampling: ??[place] lymph node(s) ?Specimen Laterality: ??Left Tumor ?Histologic Type: ??Mucinous carcinoma ?Glandular (Acinar)/Tubular Differentiation: ??Score 3 ?Nuclear Pleomorphism: ??Score 2 ?Mitotic Rate: ??Score 1 ?Overall Grade: Grade 2 ?Tumor Size: Size of Largest Invasive Carcinoma: ??6 mm ?Ductal Carcinoma In Situ (DCIS): ??No [...] 2 mm ?Distance From Other Specified Margin: ??from all other RM >10??mm ?Ductal Carcinoma In Situ (DCIS): ??DCIS not present in specimen Lymph Nodes ?Homestead Lymph Nodes: [place] lymph node biopsy performed ?Number of [place] Nodes Examined: ??3 ?Number of Lymph Node(s) Examined (sentinel and nonsentinel): 3 ?Lymph Node Involvement: None identified Stage (pTNM) ?Pathological Stage: ?? pT1b pN0 She met already with radiation oncology and today informs me that she is not interested in radiation therapy. PMH: Past Medical History: Diagnosis Date ??? Fracture of tibia 12/2016 left tibial plateau ??? GERD (gastroesophageal reflux disease) ??? H/O non-insulin dependent diabetes mellitus ??? Spinal stenosis She reports that in mid April she went into atrial fibrillation. Is working with local physicians on this and is currently taking Coumadin. Most recent DEXA scan was in this year at [facility]. There is no history of thromboembolic events. Soc Hx/Fam Hx: She lives alone. Son lives nearby. Family history is notable for a maternal first cousin with breast cancer diagnosed in her 40s. In addition that cousin's sister has had pancreatic cancer as did a brother. These cousins are related to Ms. Olson via a maternal uncle. Maternal grandfather had rectal cancer. Her sister has had a pulmonary embolus. ROS: She reports that she has had chronic balance problems. No new problems with VELEZ, diplopia, difficulty swallowing, heartburn, cough, COLÓN/SOB, pain, fevers, bleeding of any kind, nausea/emesis, change in bowel or bladder function. ROS otherwise neg. Exam: Most Recent Vitals: 04/23/17 1352 BP: 140/85 Pulse: 105 Resp: 18 Temp: 36.3 ??C (97.3 ??F) SpO2: 100% PERRL, EOMi, sclera nonicteric Oropharynx benign No MARLEE No spine/rib tenderness Chest: clear to A and P L breast healing well, without e/o infection CV: irreg irreg, no murmurs Abd: NT, no HSM, +BS Ext: no c/c/e Neuro: grossly nonfocal. Neg Romberg. Labs: Ref. Range 03/03/2017 WBC Latest Ref Range: 4.0 - 9.5 x10(3)/mcL 8.8 RBC Latest Ref Range: 4.00 - 5.21 x10(6)/mcL 3.80 (L) Hemoglobin Latest Ref Range: 11.7 - 15.5 gm/dL 12.3 Hematocrit Latest Ref Range: 35.7 - 45.8 % 36.3 MCV Latest Ref Range: 82.6 - 94.4 fL 95.5 (H) MCH Latest Ref Range: 27.1 - 32.0 pg 32.4 (H) MCHC Latest Ref Range: 31.7 - 35.0 gm/dL 33.9 RDWSD Latest Ref Range: 37.0 - 46.0 fL 48.3 (H) RDWCV Latest Ref Range: 11.5 - 14.1 % 13.9 Platelets Latest Ref Range: 145 - 357 x10(3)/mcL 156 MPV Latest Ref Range: 7.6 - 12.9 fL 11.9 nRBC % Auto Latest Units: % 0.0 nRBC Abs Auto Latest Ref Range: 0.000 - 0.000 x10(3)/mcL 0.000 Neutr Abs (ANC) Latest Ref Range: 1.70 - 6.10 x10(3)/mcL 6.45 (H) Neutrophils % Latest Units: % 72.8 Immature Gran % Latest Units: % 0.50 Lymphocytes % Latest Units: % 14.4 Monocytes % Latest Units: % 5.6 Eosinophils % Latest Units: % 6.1 Basophils % Latest Units: % 0.6 Elenita Gran Abs Latest Ref Range: 0.00 - 0.04 x10(3)/mcL 0.04 Lymphocytes Abs Latest Ref Range: 0.9 - 3.2 x10(3)/mcL 1.3 Monocyte Abs Latest Ref Range: 0.3 - 0.9 x10(3)/mcL 0.5 Eosinophils Abs Latest Ref Range: 0.0 - 0.4 x10(3)/mcL 0.5 (H) Basophils Abs Latest Ref Range: 0.0 - 0.1 x10(3)/mcL 0.0 Sodium Latest Ref Range: 135 - 145 mmol/L 141 Potassium Latest Ref Range: 3.5 - 5.0 mmol/L 4.8 Chloride Latest Ref Range: 98 - 107 mmol/L 101 CO2 Latest Ref Range: 22 - 31 mmol/L 26 Anion Gap Latest Ref Range: 5 - 15 mmol/L 14 BUN Latest Ref Range: 8 - 18 mg/dL 20 (H) Creatinine Latest Ref Range: 0.70 - 1.20 mg/dL 0.95 Estimated GFR Latest Ref Range: >=60 58 (L) Glucose Lvl Latest Ref Range: 65 - 199 mg/dL 139 Calcium Latest Ref Range: 8.5 - 10.5 mg/dL 9.3 Total Protein Latest Ref Range: 6.1 - 8.0 gm/dL 6.9 Albumin Latest Ref Range: 3.2 - 5.2 gm/dL 4.2 Total Bilirubin Latest Ref Range: 0.2 - 1.3 mg/dL 0.5 Alk Phos Latest Ref Range: 40 - 104 unit/L 75 AST Latest Ref Range: 0 - 30 unit/L 17 ALT Latest Ref Range: 0 - 30 unit/L 16 I reviewed images from her February outside mammo, which showed the 4 mm irregular mass in the left breast. 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 She is now status post partial mastectomy and sentinel node biopsy. Her invasive tumor was 6 mm in largest dimension. There was no angiolymphatic invasion. Nodes were negative. PT1N0. Tumor was strongly positive for both of these estrogen and progesterone receptors. HER2 is negative. We discussed the components of managing invasive breast cancers. I focused on the role of systemic adjuvant therapy in the management of breast cancer. This context we discussed adjuvant endocrine therapy. Given her pathologic features I do not recommend chemotherapy. I reviewed with her the options of tamoxifen and aromatase inhibitors. We reviewed and significant detail the side effects and risks associated with aromatase inhibitors, and I gave her a printout of the data from Arimidex placebocontrol trial. She indicated that she is interested in pursuing this option. Prescription was sent to her local pharmacy. I have asked her to have the bone density test sent to me via fax and gave her my fax number for this. I also suggested that she discuss with her cousins the options of genetic testing and that her maternal first cousin with breast cancer in her 40s and pancreatic cancer in her sister and brother should pursue genetic testing. If that individual is found to carry a mutation we can down the back to 2 years for testing. All questions answered. We will see her back in roughly 6 months. documented in this encounter Plan of Treatment Not on file documented as of this encounter Visit Diagnoses Diagnosis 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, estrogen receptor positive documented in this encounter Care Teams Humanities Coordinator Relationship Specialty Start Date End Date Ana Her MD [address] [place] [address] PCP - General 07/29/13 documented as of this encounter
--- OUTSIDE RECORDS SUMMARY | 2023-11-18 15:09 | XMS_ITS | Encounter Summary ---
[place] [address] Care Team Providers Care Search Lead Name Role Phone Ana Her MD Primary Care Provider [phone] Reason for Visit * Reason Comments Establish Care * Consultation (Routine) - Specialty Diagnoses / Procedures Referred By Christiano t Referred To Contact Hematology and Oncology Diagnoses Other abnormal and inconclusive findings on diagnostic imaging of breast abnormal mammo, left breast Jackie Cisneros, WENDY [address] [place] [address] [facility] [address] [place] [address] Referral ID Status Reason Start Date Expiration Date V isits Requested Visits Authorized [id number] Consult, Test & Treat Connection Center 02/17/2017 05/20/2017 6 6 Encounter Details Date Type Department Care Team (Late st Contact Info) Description 03/03/2017 9:00 AM EDT Office [place] [address] Malika Chen MD [facility] [place] [address] Argentina Sanchez, RN Malignant neoplasm of lower-outer quadrant of left [...] Sign Reading Time Taken Comments Blood Pressure 119/77 03/03/2017 8:57 AM EDT Pulse 93 03/03/2017 8:57 AM EDT Temperature - - Respiratory Rate 18 03/03/2017 8:57 AM EDT Oxygen Saturation 97% 03/03/2017 8:57 AM EDT Inhaled Oxygen Concentration - - Weight 97.6 kg (215 lb 1.6 oz) 03/03/2017 8:57 A M EDT Height 170.2 cm (5' 7) 03/03/2017 8:57 AM EDT Body Mass Index 33.69 03/03/2017 8:57 AM EDT documented in this encounter Progress Notes * Argentina Sanchez RN - 03/03/2017 9:00 AM EDT Comprehensive Breast Program Note Digna Olson is a 71 y.o. female with left breast cancer. I met with the patient and her sisters, Nneka and Mary, in clinic. SPECIFIC TEACHIN. Breast Cancer Treatment Handbook (Alma Delia [place], 2012) was provided to her. 2. Information from our Shared Decision-Marking Program on Early-Stage Breast Cancer was sent. 3. She understands she will meet with medical and radiation ([facility]) oncologists after surgery. 4. Contact phone number for questions or concerns in the immediate post- operative period. 5. Comprehensive Breast Program Binder. 6. Post Breast Surgery Exercises handout created by physical therapists [place] [facility] 7. Breast Cancer Treatment Process care map provided and reviewed. 8. Things to Consider...What I Wish I Knew advice from breast cancer patients handout provided. She verbalized understanding of the plan of care and states all her questions were answered. Twentyminutes was spent in education and providing support. Alma Delia has our contact information. She will call the surgical dental assistant to schedule surgery after she has her colonoscopy date (plans to do this before breast surgery). Pre-op MRI: No * Malika Chen MD - 03/03/2017 9:00 AM EDT Subjective: Patient ID: Digna Olson is a 71 y.o. female. IGGY Flannery is a 71 yo female who is [...] was obtained which revealed IDC which is ER/OH+, her2-. She has no known breast masses, no adenopathy, no nipple discharge. Alma Delia had a bone scan in [place] which was read as possible metastasis in the left tibia. Of note- she fractured this area recently. She has recovered well. PMH HNT NIDDM not on meds Spinal stenosis Fractured left tibial plateau December, GERD FH: Maternal first cousin with breast cancer Brother with rectal cancer Sister with PE SH: lives alone. Has good support from sisters who live in [place]. Non smoker. Has a son who lives nearby. Avid swimmer. Review of Systems Constitutional: Negative for unexpected [...] family history of clotting disorder). Psychiatric/Behavioral: Negative. Objective: Physical Exam Constitutional: She is oriented [...] She has a normal mood and affect. CBC, LFTs WNL Imaging: as in hPI. I have personally reviewed mammogram and u/s. Assessment and Plan: 71 yo female with radiographic stage I ER/OH+, HER2- IDC of the left breast. No [...] we will proceed with this as well. We briefly touched upon systemic adjuvant therapy. Alma Delia is aware that we will set up a medical oncology appointment for her. She is aware that endocrine therapy will be recommended and much, much less likely chemotherapy. Risks of surgery including bleeding, infection, need for additional surgery and lymphedema were discussed and consent was obtained. Plan colonoscopy prior to surgery given symptoms of diarrhea and family history of rectal cancer. If necessary, could consider combining surgeries. documented in this encounter Plan of Treatment Not on file documented as of this encounter Visit Diagnoses Diagnosis 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, estrogen receptor positive documented in this encounter Care Teams Search Lead Relationship Specialty Start Date End Date Ana Her MD [address] [place] [address] PCP - General 07/29/13 documented as of this encounter
--- OUTSIDE RECORDS SUMMARY | 2023-11-18 15:09 | XMS_ITS | Encounter Summary ---
Author Organization [facility] [place] [address] Care Team Providers Care Cloth Coverer Name Role Phone Ana Her MD Primary Care Provider [phone] Encounter Details Date Type Department Care Team (Latest Contact Info) Description 02/25/2017 2:59 PM EDT - 02/25/2017 11:59 PM EDT Hospital En[place] [id number] Enzo Burkett MD [facility] [place] [address] Abnormal finding on breast imaging Discharge Disposition: Home Social History Tobacco Use [...] Name Priority Date/Time Associated Diagnosis Comments MAMMO 2D DIGITAL DIAG JERAMY WITH CAD LEFT Routine 02/25/2017 3:53 PM EDT Abnormal finding on breast imaging SURGICAL PATHOLOGY REPORT Routine 02/25/2017 3:01 PM EDT documented in this encounter Results * Mammo Diag Jeramy Left (02/25/2017 3:53 PM EDT) Anatomical Region Laterality Modality Breast Left Mammography Impressions 02/26/2017 5:44 PM EDT Malignant and concordant result RECOMMENDATION: Definitive surgical management. REVIEW PATH CONFERENCE?: No NOTE: Findings were discussed with the patient. The comprehensive breast program was informed. Narrative 02/26/2017 5:44 PM EDT LEFT BREAST ULTRASOUND GUIDED VACUUM ASSISTED CORE BIOPSY CLINICAL HISTORY: Abnormal mammogram 71-year-old female for ultrasound-guided biopsy of persistent asymmetry/tiny distortion, 5:00, 9 cm from the nipple on ultrasound. PROCEDURAL DETAILS: Informed consent was obtained and a time out procedure was performed per protocol. The patient gave permission to proceed. Using sterile technique and local anesthetic (less than 10cc's of 1% lidocaine superficially and less than 10 cc's of 1% lidocaine deep to the dermis) a skin knick was made and a biopsy was performed using ultrasound guidance. Multiple core biopsy specimens were obtained using a 12g vacuum assist device. A steven marker clip was deployed. A follow-up mammogram was performed in the CC and True Lateral projections and demonstrates the clip at the biopsy site, 0 mm of displacement COMPLICATIONS: None. PROCEDURAL ATTESTATION: Resident: Backer I performed the procedure with the resident observing. IMAGING DIFFERENTIAL DIAGNOSIS: IDC, sclerotic papilloma, sclerotic fibroadenoma. PATHOLOGIC DIAGNOSIS: Invasive mucinous carcinoma intermediate grade. Few calcifications associated with invasive carcinoma. Enzo Burkett MD [facility] [place] * Surgical Pathology Report (02/25/2017 3:01 PM EDT) Pathologist [facility] Surgical Pathology Report [id number] ? Location: 3L The signing pathologist has (i) examined the relevant preparation(s) for the specimen(s) and (ii) rendered or confirmed the diagnosis(es). . ?Molecular Genetics RESULTS TEST: ??HER2(ERBB2)FISH, Breast METHOD: ??Fluorescence in situ hybridization (FISH) with chromosome 17 centromere (17p11.1-q11.1) probe and a locus specific probe for the HER2 gene locus (17q11.2- q12). SAMPLE ANALYZED: A1-7 RESULT: ?NEGATIVE FOR HER2/EITAN AMPLIFICATION ? TOTAL # SIGNALS/TOTAL # NUCLEI COUNTED FOR HER2 PROBE = 96 ? TOTAL # SIGNALS/TOTAL # NUCLEI COUNTED FOR CEP-17 PROBE = 82 ? HER2 TO CEP-17 RATIO = 1.2 ? (NORMAL RANGE ? <2.0) ? TOTAL # NUCLEI COUNTED = 40 Interpretation: ??Paraffin-embedde d tissue sections were submitted for HER2(ERBB2)gene amplification analysis by FISH. ??Direct analysis was performed using the [employer]para[employer] Kit. ??Slide adequacy and signal enumeration were evaluated and satisfactory for both control and patient slides. ??A signal ratio derived from the HER2 probe and the CEP-17 centromere probe of ?2.0 is considered positive for HER2 gene amplification. The 2013 ASCO/CAP guideline recommendation for HER2 testing in breast cancer states that samples with a HER2 to CEP-17 ratio of less than 2.0 are non-amplified. Specimens with a HER2 to CEP-17 range of ?2.0 are considered amplified. This test is approved by the U.S. FDA for clinical diagnostic use. Reference: Koffi ESPARZA, et al. Recommendations for human epidermal growth factor receptor 2 testing in breast cancer: [place] Society of Clinical Oncology/College of [employer] Pathologists clinical practice guideline update. J Clin Oncol. 2013 Nov . Reviewed by: Kyara Logan MD Slat Basket Maker, Molecular Pathology _ Electronically signed by: ??Epifanio Serra MD Verified: ??03/04/2017 ?Pathologist Performed at: ??-[facility] [place] [place] Dept. of Pathology, [place], [place] ? Addendum ADDENDUM DISCUSSION Immunohistochemist ry Studies Specimen: Left breast, core needle biopsy (A1) ER immunoreactivity: Positive ( ??>90% cancer cells with immunostaining) Stain intensity: Strong . ADDENDUM DISCUSSION TN immunoreactivity: Positive ( ??>90% cancer cells with immunostaining) Stain intensity: Strong HER2 FISH: separate report to follow ? *Diagnostic arroyo for hormone receptors (ASCO/CAP GUIDELINES, 2010): ?Negative immunoreactivity: ?? <1% tumor cells with immunostaining ?Positive immunoreactivity: ?? >1% tumor cells with immunostaining Immunohistochemica l assays were performed on paraffin-embedded tissue sections fixed in 10% neutral buffered formalin for 6-72 hours using the polymer system technique with appropriate positive and negative controls. The assays were performed according to the legal aide ' s instructions using Anti-ER (SP1) and Anti-TN (16) antibodies. Electronically signed by: ??Epifanio Serra MD Verified: ??02/27/2017 ?Pathologist Performed at: ??-[facility] [place] [place] Dept. of Pathology, [place], [place] ?Surgical Pathology DIAGNOSIS Needle biopsies: ?Left breast Diagnosis: ?Invasive mucinous carcinoma (see Discussion) ?Intermediate grade, modified SBR score = 6 Microcalcification s: ??Few calcifications associated with invasive carcinoma Electronically signed by: ??Epifanio Serra MD Verified: ??02/26/2017 ?Pathologist Performed at: ??-[facility] [place] [place] Dept. of Pathology, [place], [place] DISCUSSION Studies for ER, TN, and HER2 have been ordered; results will be issued in an addendum. CLINICAL INFORMATION Specimen Submitted: A - Left breast U/S BX 12 G Clinical History: Mass Clinical Diagnosis: IDC versus ILC versus sclerotic FA/papilloma SPECIMEN PROCESSING A - ??Labeled/Fixative : Left breast U/S Biopsy 12 G, formalin. Quantity/Size: Multiple, 3.0 x 3.0 x 0.2 cm in aggregate. Tissue Description: Soft yellow-white fibroadipose tissue needle core biopsies. Ischemic Time: 4 minutes. Sections/Processin g: (T4) ??elian [facility] 02/25/2017 3:01 PM EDT Enzo Burkett MD PATHOLOGY/CYTOLOGY O RDERABLES [facility] [place] [address] documented in this encounter Visit Diagnoses Diagnosis Abnormal finding on breast imaging Other (abnormal) findings on radiological examination of breast documented in this encounter Care Teams Cloth Coverer Relationship Specialty Start Date End Date Ana Her MD [address] [place] [address] PCP - General 07/29/13 documented as of this encounter
--- OUTSIDE RECORDS SUMMARY | 2023-11-18 15:09 | XMS_ITS | Encounter Summary ---
[place] [address] Care Team Providers Care Calender Tender Name Role Phone Ana Her MD Primary Care Provider [phone] Encounter Details Date Type Department Care Team (Latest Contact Info) Description 03/30/2017 7:27 AM EST - 03/30/2017 1:37 PM EST Hospital Encounter [place] [id number] Brant Chen MD [facility] [place] [address] Discharge Disposition: Home Social History Tobacco Use Types Packs/Day Years Used Date Smoking Tobacco: Never Smokeless Tobacco: Never Sex and Gender Information Value Date Recorded Sex Assigned at Not on file Gender Identity Not on file Sexual Orientation Not on file documented as of this encounter Last Filed Vital Signs Vital Sign Reading Time Taken Comments Blood Pressure 113/95 03/30/2017 1:15 PM EST Pulse 53 03/30/2017 8:07 AM EST Temperature 36.2 ??C (97.2 ??F) 03/30/2017 12:[address] Respiratory Rate 16 03/30/2017 12:36 PM EST Oxygen Saturation 92% 03/30/2017 1:15 PM EST Inhaled Oxygen Concentration - - Weight - - Height - - Body Mass Index - - documented in this encounter Discharge Instructions * Discharge Instructions* Madelaine, Suzi E, RN - 03/30/2017 12:48 PM EST POST [...] shower 24 hours Activity as tolerated Call [phone] with any questions Do not soak incision [...] was obtained which revealed 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 She has no known breast masses, no adenopathy, no nipple discharge. ?? Alma Delia had a bone scan in [place] which was read as possible metastasis in the left tibia. Of note- she fractured this area recently. She has recovered well. ?? PMH HNT NIDDM not on meds Spinal stenosis Fractured left tibial plateau December, GERD ?? FH: Maternal first cousin with breast cancer Brother with rectal cancer Sister with PE ? SH: lives alone. Has good support from sisters who live in [place]. Non smoker. Has a son who lives [...] 71 yo female with radiographic stage I ER/VA+, HER2- IDC of the left breast. No [...] Chen MD - 03/30/2017 12:27 PM EST [facility] Operative Note Patient Name: Digna Olson : [id number] MR#: [id number] Case Date: 03/30/2017 Surgeon: Surgeon(s) and Role: [...] [place] [address]. Remaining count within the axilla was 1982. [...] PM EST 03/30/2017 12:09 PM EST Narrative [facility] - 03/30/2017 12:09 PM EST Specimen requisition ordered. ??Separate Pathology report to follow Brant Chen MD PATHOLOGY/CYTOLOGY ORDERABLES [facility] [place] [address] * Specimen to Pathology (surgical or derm) (03/30/2017 12:08 PM EST) AP Specimen 03/30/2017 12:0 8 PM EST 03/30/2017 12:08 PM EST Narrative [facility] - 03/30/2017 12:08 PM EST Specimen requisition ordered. ??Separate Pathology report to follow Brant Chen MD PATHOLOGY/CYTOLOGY ORDERABLES Performing Organization Address [facility] Co de Phone Number [facility] [place] [address] * Specimen to Pathology (surgical or derm) (03/30/2017 12:00 PM EST) AP Specimen 03/30/2017 12:0 0 PM EST 03/30/2017 12:00 PM EST Narrative [facility] - 03/30/2017 12:00 PM EST Specimen requisition ordered. ??Separate Pathology report to follow rBant Chen MD PATHOLOGY/CYTOLOGY ORDERABLES Performing Organization Address [facility] [place] [address] * Specimen to Pathology (surgical or derm) (03/30/2017 11:51 AM EST) AP Specimen 03/30/2017 11:5 1 AM EST 03/30/2017 11:51 AM EST Narrative [facility] - 03/30/2017 11:51 AM EST Specimen requisition ordered. ??Separate Pathology report to follow Brant Chen MD PATHOLOGY/CYTOLOGY ORDERABLES Performing Organization Address [facility] de Phone Number [facility] [place] [address] * Surgical Pathology Report (03/30/2017 11:50 AM EST) Surgical Pathology Report [id number] ? Location: [facility]; [facility]; A The signing pathologist has (i) examined the relevant preparation(s) for the specimen(s) and (ii) rendered or confirmed the diagnosis(es). . ?Surgical Pathology DIAGNOSIS A,B - See Synoptic C - Left breast, Deep/lateral margin re-excision - ?Benign fatty breast tissue. D - Left breast, Superficial margin re-excision - ?Benign fatty breast tissue. See Note Note - [place] ink (indicating additional cranial margin) is also present on this superficial margin re-excision. ---- Specimen Parts: ?? A - Left axilliary sentinel node B - Left breast partial mastectomy Specimen ? Procedure: ??Excision with image-guided localization ? Lymph Node Sampling: ?? [place] lymph node(s) ? Specimen Laterality: ?? Left [...] not present in specimen Lymph Nodes ? [place] Lymph Nodes: ?? [place] lymph node biopsy performed ? Number of [place] Nodes Examined: ?3 ? Number of Lymph [...] Chávez DO Verified: ??04/01/2017 ?Pathologist Performed at: ??-[facility] Dept. of Pathology, [place], [place] CLINICAL INFORMATION Specimen Submitted: A - [...] and there are ??no close margins. per [facility] . Specimen Description: According to the established protocol the ink designations are red (medial), yellow (lateral), orange (cranial), green (caudal), black (deep) and blue (superficial). Tissue Sections: The specimen is serially sectioned perpendicular to the long axis from lateral to medial into X slices, each averaging 0.45 cm in thickness. LESION Description: Biopsy site. Size: 0.8 x 0.4 x 0.4 cm. Color: Magazine and yellow. Consistency: Soft. Location: Slices III and IV. Nearest Margin: 0.6 cm to the cranial margin. Other Margins: 0.8 cm to the deep margin, 1.0 cm to the superficial margin, ? > 2 cm from all other margins. OTHER Parenchyma: Predominately fatty with scant fibrous tissue. Wire/Clip: Biopsy marker clip identified within slice IV. SECTIONS/PROCESSI NG: (1) public utilities sales representative slice I, lateral margin; (2) slice III, lesion to cranial margin; (3-5) remainder of slice III; (6) slice IV, lesion to cranial margin (clip); (7-8) remainder of slice IV; (9) public utilities sales representative slice V; (10) public utilities sales representative slice X, medial margin. (R10) Ischemic [...] aspect. Sections/Processi ng: Serially sectioned. (T3) ??sns [facility] 03/30/2017 11:5 0 AM EST Brant Chen MD PATHOLOGY/CYTOLOGY ORDERABLES [facility] [place] [address] * Mammo Direct Digital Left (03/30/2017 9:15 [...] Given 03/30/2017 9:30 AM EST 650 mg lactated Ringers infusion 1,000 mL 1,000 mL, at 100 mL/hr, Intravenous, CONTINUOUS, Starting on Thu03/30/17 at 0815, Until Thu03/30/17 at 1336, Day of Surgery (Day of Procedure) New Bag 03/30/2017 8:15 AM EST 1,000 mLs 100 mL/hr traMADol (ULTRAM) tablet 50 mg 50 mg, [...] Laura Koo CRNA) PRN Medication Order 03/28/2017 03/29/201703/3003/30/2017 BUpivacaine (PF) (MARCAINE) 0.5 % (5 mg/mL) [...] Routine documented in this encounter Care Teams Calender Tender Relationship Specialty Start Date End Date Ana Her MD [address] [place] [address] PCP - General 07/29/13 documented as of this encounter
--- OUTSIDE RECORDS SUMMARY | 2023-11-18 15:09 | XMS_ITS | Encounter Summary ---
Author Organization [facility] [place] [address] Care Team Providers Care District Fire Chief Name Role Phone Ana Her MD Primary Care Provider [phone] Encounter Details Date Type Department Care Team (Latest Contact Info) Description 02/25/2017 1:32 PM EDT - 02/25/2017 1:35 PM EDT Hospital [place] [phone] Maryam Yee MD [facility] [place] [address] Abnormal mammogram Discharge Disposition: Home Social History [...] as of this encounter Progress Notes * Enzo Burkett MD - 02/25/2017 3:02 PM EDT Pre-procedure note for needle breast biopsies performed in radiology. Procedure date: Today Procedure type: left breast ultrasound guided biopsy Allergies: Review of patient's allergies indicates no known allergies. Medications: Current Outpatient Prescriptions: ??? levothyroxine (SYNTHROID) 137 mcg Tablet, Take 137 mcg by mouth daily., Disp: , Rfl: ??? cyclobenzaprine (FLEXERIL) 10 mg Tablet, Take 1 tablet by mouth as needed., Disp: , Rfl: 0 ??? atenolol (TENORMIN) 100 mg Tablet, Take 100 mg by mouth daily., Disp: , Rfl: ??? lisinopril (PRINIVIL;ZESTRIL) 40 mg Tablet, Take 40 mg by mouth daily., Disp: , Rfl: ??? hydrochlorothiazide (HYDRODIURIL) 25 mg Tablet, Take 25 mg by mouth daily., Disp: , Rfl: ??? felodipine (PLENDIL) 2.5 mg Tablet Sustained Release 24 hr, Take 2.5 mg by mouth daily., Disp: , Rfl: ??? atorvastatin (LIPITOR) 40 mg Tablet, Take 40 mg by mouth daily., Disp: , Rfl: ??? omeprazole (PRILOSEC) 20 mg Capsule, Delayed Release(E.C.), Take 20 mg by mouth daily., Disp: ,Rfl: Current Facility-Administered Medications: ??? lidocaine (XYLOCAINE) 10 mg/mL (1 %) injection 20 mg, 20 mg, Intradermal, Once, Devan Burkett MD Anticoagulation status: aspirin stopped on: N/A Imaging reviewed and procedural plan approved by Dr. Enzo Burkett MD documented in this encounter Plan of Treatment Not on file documented as of this encounter Procedures Procedure Name Priority Date/Time Associated Diagnosis Comments MAMMO US BIOPSY VACUUM ASSISTED LEFT Routine 02/25/2017 3:42 PM EDT Abnormal mammogram SPECIMEN TO PATHOLOGY Routine 02/25/2017 3:02 PM EDT documented in this encounter Results * Mammo Us Vacuum Assisted Biopsy Left (02/25/2017 3:42 PM EDT) Anatomical Region Laterality Modality Breast [...] grade. Few calcifications associated with invasive carcinoma. Maryam Yee MD IMG MAMMO ORDERABL ES * Specimen to Pathology (surgical or derm) (02/25/2017 3:02 PM EDT) AP Specimen 02/25/2017 3:02 PM EDT 02/25/2017 3:02 PM EDT Narrative [facility] - 02/25/2017 3:02 PM EDT Specimen requisition ordered. ??Separate Pathology report to follow Enzo Burkett MD PATHOLOGY/CYTOLOGY O [place] [facility] [place] [address] documented in this encounter Visit Diagnoses Diagnosis Abnormal mammogram Abnormal mammogram, unspecified documented in this encounter Administered Medications Inactive Administered Medications - up to 3 most recent administrations Medication Order MAR Action Action Date Dose Rate Site lidocaine (XYLOCAINE) 10 mg/mL (1 %) injection 20 mg 20 mg, Intradermal, ONCE, 1 dose, On Thu02/25/17 at 1530, Routine Given 02/25/2017 3:15 PM EDT 20 mg documented in this encounter Care Teams District Fire Chief Relationship Specialty Start Date End Date Ana Her MD [address] [place] [address] PCP - General 07/29/13 documented as of this encounter
--- OUTSIDE RECORDS SUMMARY | 2023-11-18 15:09 | XMS_ITS | Encounter Summary ---
Author Organization [facility] [place] [address] Care Team Providers Care Shipyard Laborer Name Role Phone Ana Her MD Primary Care Provider [phone] Encounter Details Date Type Department Care Team (Latest Contact Info) Description 03/30/2017 8:30 AM EST Hospital [place] [address] Malika Chen MD [facility] [place] [address] Malignant neoplasm of upper-outer quadrant of left [...] Name Priority Date/Time Associated Diagnosis Comments MAMMO SENTINEL NODE INJECTION Routine 03/30/2017 9:01 AM EST Malignant neoplasm of upper-outer quadrant of left breast in female, estrogen receptor positive documented in this encounter Results * Mammo [place] Node Injection (03/30/2017 9:01 AM EST) Anatomical Region Laterality Modality Breast N/A Mammography Impressions 03/30/2017 10:41 AM EST Impression: [...] the images/test and approve the above interpretation. Malika Chen MD IMG MAMMO ORDERABLE S documented in this encounter Visit Diagnoses Diagnosis Malignant neoplasm of upper-outer quadrant of left breast in female, estrogen receptor positive documented in this encounter Administered Medications Inactive Administered Medications - up to 3 most recent administrations Medication Order MAR Action Action Date Dose Rate Site technetium (Tc-99m) sulfur colloid injection 1.7 mCi 1.7 mCi, Intradermal, ONCE PRN, 1 dose, Starting on Thu03/30/17 at 0900, Until Thu03/30/17 at 0900, Per Protocol, Routine Given 03/30/2017 9:00 AM EST 1.7 mCi documented in this encounter Care Teams Shipyard Laborer Relationship Specialty Start Date End Date Ana Her MD [address] [place] [address] PCP - General 07/29/13 documented as of this encounter
--- OUTSIDE RECORDS SUMMARY | 2023-11-18 15:09 | XMS_ITS | Encounter Summary ---
[place] [address] Care Team Providers Care Bottom Bleacher Name Role Phone Ana Her MD Primary Care Provider [phone] Encounter Details Date Type Department Care Team (Late st Contact Info) Description 02/27/2017 Telephone [place] [phone] Argentina Sanchez RN Social History Tobacco Use Types Packs/Day Years Used Date Smoking Tobacco: Never Smokeless Tobacco: Never Sex and Gender Information Value Date Recorded Sex Assigned at Not on file Gender Identity Not on file Sexual Orientation Not on file documented as of this encounter Miscellaneous Notes * Telephone Encounter - Argentina Sanchez RN - 02/27/2017 5:18 PM EDT Comprehensive Breast Program (CBP) Note ?? Reason for call: Contacted patient after Dr. Burkett informed her that her breast biopsy results indicated she has invasive mucinous carcinoma, to introduce her to the CBP. Digna Olson is a 71 y.o. 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 Alma Delia sounds positive and has support. She will have someone accompany her to appointments. She appears to be coping well but is anxious to meet with a breast surgeon to determine a treatment plan. Alma Delia have a bone SPECT done 1-2 months ago at [facility] and her doctor there questioned an area around the left knee which could represent metastatic cancer. She states her orthopedic doctor looked at it and was not overly concerned. She plans to bring the scan/report with her to her consult on 03/[address] Chen. She was scheduled for back surgery on 03/05 but has cancelled this after she learned of the BR CA diagnosis. Plan: Appointment for surgical consult with a breast surgeon has been scheduled. She was introducedto the CBP and told she would receive information about her diagnosis and treatment for her review (a link to the [facility] Early Stage Breast Cancer program). The Breast Cancer Treatment Handbook will be given to her on 03/03. Plan to meet with Alma Delia on the day of her consult apt. Addressed her questions and encouraged her to contact me with any additional questions or concerns.She has our contact information. FAMILY HISTORY Breast Cancer: M Aunt, she thinks in her 40's M cousin (affected aunt's daughter), she thinks in her 40's Laterality:Left Is this a recurrence:No Family history of breast cancer:Yes Family history of ovarian cancer: No Personal history or breast cancer:No Method of detection: Mammogram Method of diagnosis: Ultrasound Core Biopsy documented in this encounter Plan of Treatment Not on file documented as of this encounter Visit Diagnoses Not on filedocumented in this encounter Care Teams Bottom Bleacher Relationship Specialty Start Date End Date Ana Her MD [address] [place] [address] PCP - General 07/29/13 documented as of this encounter
--- OUTSIDE RECORDS SUMMARY | 2023-11-18 15:09 | XMS_ITS | Encounter Summary ---
[place] [address] Care Team Providers Care Mid Teacher Name Role Phone Ana Her MD Primary Care Provider [phone] Encounter Details Date Type Department Care Team (Latest Contact Info) Description 03/03/2017 7:55 AM EDT Laboratory Appointment Lab [address] [place] [address] Malignant neoplasm of left breast in female, estrogen receptor positive, unspecified site of breast Social History Tobacco [...] Priority Date/Time Associated Diagnosis Comments HEMOGRAM Routine 03/03/2017 7:50 AM EDT Malignant neoplasm of left breast in female, estrogen receptor positive, unspecified site of breast DIFFERENTIAL, AUTOMATED Routine 03/03/2017 7:50 AM EDT Malignant neoplasm of left breast in female, estrogen receptor positive, unspecified site of breast CBC (WITH DIFF) Routine 03/03/2017 7:50 AM EDT Malignant neoplasm of left breast in female, estrogen receptor positive, unspecified site of breast COMPREHENSIVE METABOLIC PANEL (NON-FASTING) Routine 03/03/2017 7:50 AM EDT Malignant neoplasm of left breast in female, estrogen receptor positive, unspecified site of breast documented in this encounter Results * (ABNORMAL) Differential, Automated (03/03/2017 7:50 AM EDT) Neutrophils % 72.8 % [facility] Neutr Abs (ANC) 6.45(H) 1.70 - 6.10 x10(3)/[facility] Lymphocytes % 14.4 % [facility] Lymphocytes Abs 1.3 0.9 - 3.2 x10(3)/[facility] Monocytes % 5.6 % [facility] Monocyte Abs 0.5 0.3 - 0.9 x10(3)/[facility] Eosinophils % 6.1 % [facility] Eosinophils Abs 0.5(H) 0.0 - 0.4 x10(3)/[facility] Basophils % 0.6 % [facility] Basophils Abs 0.0 0.0 - 0.1 x10(3)/[facility] Immature Gran % 0.50 % [facility] Comment: Immature granulocytes(IG's)percentage and absolute count will include metamyelocytes, myelocytes, and promyelocytes. Blood smears from CBCs yielding IG's will be scanned manually for concordance. If this scan disagrees with the automated IG or if promyelocytes are noted, a manual differential will be performed. Elenita Gran Abs 0.04 0.00 - 0.04 x10(3)/ L [facility] Blood specimen (specimen) 03/03/2017 7:50 AM EDT 03/03/2017 8:03 AM EDT Narrative Resulting Agency Comment Spec In Lab Malika Chen MD HEMATOLOGY ORDERABL ES [facility] [place] [address] * (ABNORMAL) Hemogram (03/03/2017 7:50 AM EDT) WBC 8.8 4.0 - 9.5 x10(3)/[facility] RBC 3.80(L) 4.00 - 5.21 x10(6)/[facility] Hemoglobin 12.3 11.7 - 15.5 gm/dL [facility] Hematocrit 36.3 35.7 - 45.8 % [facility] MCV 95.5(H) 82.6 - 94.4 fL [facility] MCH 32.4(H) 27.1 - 32.0 pg [facility] MCHC 33.9 31.7 - 35.0 gm/dL [facility] Platelets 156 145 - 357 x10(3)/[facility] RDWSD 48.3(H) 37.0 - 46.0 [facility] RDWCV 13.9 11.5 - 14.1 % [facility] MPV 11.9 7.6 - 12.9 [facility] nRBC % Auto 0.0 % [facility] nRBC Abs Auto 0.000 0.000 - 0.000 x10(3)/[facility] Blood specimen (specimen) 03/03/2017 7:50 AM EDT 03/03/2017 8:03 AM EDT Narrative Resulting Agency Comment Spec In Lab Malika Chen MD HEMATOLOGY ORDERABL ES [facility] [place] [address] * (ABNORMAL) Comprehensive metabolic panel (non-fasting) (03/03/2017 7:50 AM EDT) Glucose Lvl 139 65 - 199 mg/dL [facility] Comment:Diabetes: >=200 mg/d L plus symptoms BUN 20(H) 8 - 18 mg/dL [facility] Creatinine 0.95 0.70 - 1.20 mg/dL [facility] Sodium 141 135 - 145 mmol/L [facility] Potassium 4.8 3.5 - 5.0 mmol/L [facility] Comment: Please note: ??Patients with WBC >100,000 may have falsely elevated Potassium levels. ??For accurate Potassium quantification in these patients send serum separator tube (gold top) for subsequent determinations. ??Contact the Clinical Chemistry Laboratory if there are any questions. Chloride 101 98 - 107 mmol/L [facility] CO2 26 22 - 31 mmol/L [facility] Anion Gap 14 5 - 15 mmol/L [facility] Calcium 9.3 8.5 - 10.5 mg/dL [facility] Total Protein 6.9 6.1 - 8.0 gm/dL [facility] Albumin 4.2 3.2 - 5.2 gm/dL [facility] AST 17 0 - 30 unit/L [facility] ALT 16 0 - 30 unit/L [facility] Alk Phos 75 40 - 104 unit/L [facility] Total Bilirubin 0.5 0.2 - 1.3 mg/dL [facility] Estimated GFR 58(L) >=60 [facility] Comment: The reported eGFR should be multiplied by 1.2 for patients. The MDRD is not an appropriate measure of renal function for patients with body mass extremes or in patients with acute kidney failure. http://Itiva.Liftopia/DHnkdep http://Itiva.Liftopia/DHMCnkf Blood specimen (specimen) 03/03/2017 7:50 AM EDT 03/03/2017 8:03 AM EDT Narrative Resulting Agency Comment Spec In Lab Malika Chen MD CHEMISTRY ORDERABLE S [facility] [place] [address] documented in this encounter Visit Diagnoses Diagnosis Malignant neoplasm of left breast in female, estrogen receptor positive, unspecified site of breast documented in this encounter Care Teams Mid Teacher Relationship Specialty Start Date End Date Ana Her MD [address] [facility] [place] [address] PCP - General 07/29/13 documented as of this encounter
--- OUTSIDE RECORDS SUMMARY | 2023-11-18 15:09 | XMS_ITS | Encounter Summary ---
[place] [address] Care Team Providers Care Equipment Operator Intermodal Yard Name Role Phone Ana Her MD Primary Care Provider [phone] Encounter Details Date Type Department Care Team (Late st Contact Info) Description 03/18/2017 Telephone [place] [id number] Bryanna Marsh RN Social History Tobacco Use Types Packs/Day Years Used Date Smoking Tobacco: Never Smokeless Tobacco: Never Sex and Gender Information Value Date Recorded Sex Assigned at Not on file Gender Identity Not on file Sexual Orientation Not on file documented as of this encounter Miscellaneous Notes * Telephone Encounter - Bryanna Parikh RN - 03/18/2017 4:10 PM EST I received a call from Digna who notes she had a colonoscopy done at [facility] and developed atrial fibrillation; she has been started on blood thinners. She was just discharged from the [facility] hospital, and called us to let us know. Digna is scheduled for surgery with Dr. Chen on the March for a lumpectomy. She believes her surgery will need to be rescheduled until the atrial fibrillation is under control but is seeking advice from Dr. Gustavo Sawyer asks that I relay this informatation to Dr. Chen. If Dr. Chen would like to give Digna a call her number is [phone]. The below is from Dr. Chen visit with Digna. Assessment and Plan: ?? 71 yo female with radiographic stage I ER/AR+, HER2- IDC of the left breast. No [...] were discussed and consent was obtained. ?? Plan colonoscopy prior to surgery given symptoms of diarrhea and family history of rectal cancer. If necessary, could consider combining surgeries. documented in this encounter Plan of Treatment Not on file documented as of this encounter Visit Diagnoses Not on filedocumented in this encounter Care Teams Equipment Operator Intermodal Yard Relationship Specialty Start Date End Date Ana Her MD [address] [place] [address] PCP - General 07/29/13 documented as of this encounter
--- OUTSIDE RECORDS SUMMARY | 2023-11-18 15:09 | XMS_ITS | Encounter Summary ---
Author Organization [place] [address] Care Team Providers Care Assembler Golf Wood Head Name Role Phone Ana Her MD Primary Care Provider [phone] Encounter Details Date Type Department Care Team (Latest Contact Info) Description 02/25/2017 1:36 PM EDT - 02/25/2017 2:58 PM EDT Hospital En[place] [phone] Maryam Yee MD [facility] [place] [address] Abnormal mammogram Discharge Disposition: Home Social History [...] Name Priority Date/Time Associated Diagnosis Comments MAMMO DIRECT DIGITAL WITH CAD LEFT Routine 02/25/2017 2:40 PM EDT Abnormal mammogram documented in this encounter Results * Mammo Direct Digital Left (02/25/2017 2:40 PM EDT) Anatomical Region [...] unspecified documented in this encounter Care Teams Assembler Golf Wood Head Relationship Specialty Start Date End Date Ana Her MD [address] [facility] [address] [place] [address] PCP - General 07/29/13 documented as of this encounter
--- OUTSIDE RECORDS SUMMARY | 2023-11-18 15:09 | XMS_ITS | Encounter Summary ---
Author Organization [facility] [place] [address] Care Team Providers Care Clinical Allergist Name Role Phone Ana Her MD Primary Care Provider [phone] Encounter Details Date Type Department Care Team (Late st Contact Info) Description 02/27/2017 Orders Only [place] [address] Malika Chen MD [facility] [place] [address] Malignant neoplasm of left breast in female, [...] documented as of this encounter Results * (ABNORMAL) Comprehensive metabolic panel (non-fasting) (03/03/2017 7:50 AM EDT) Glucose Lvl 139 65 - 199 mg/dL [facility] Comment:Diabetes: >=200 mg/d L plus symptoms BUN 20(H) 8 - 18 mg/dL [facility] Creatinine 0.95 0.70 - 1.20 mg/dL [facility] Sodium 141 135 - 145 mmol/L [facility] Potassium 4.8 3.5 - 5.0 mmol/L [facility] Comment: Please note: ??Patients with WBC >100,000 may have falsely elevated Potassium levels. ??For accurate Potassium quantification in these patients send serum separator tube (gold top) for subsequent determinations. ??Contact the Clinical Chemistry Laboratory if there are any questions. Chloride 101 98 - 107 mmol/L [facility] CO2 26 22 - 31 mmol/L [facility] Anion Gap 14 5 - 15 mmol/L [facility] Calcium 9.3 8.5 - 10.5 mg/dL [facility] Total Protein 6.9 6.1 - 8.0 gm/dL [facility] Albumin 4.2 3.2 - 5.2 gm/dL [facility] AST 17 0 - 30 unit/L [facility] ALT 16 0 - 30 unit/L [facility] Alk Phos 75 40 - 104 unit/L [facility] Total Bilirubin 0.5 0.2 - 1.3 mg/dL [facility] Estimated GFR 58(L) >=60 [facility] Comment: The reported eGFR should be multiplied by 1.2 for patients. The MDRD is not an appropriate measure of renal function for patients with body mass extremes or in patients with acute kidney failure. http://Startupxplore.TicTacTi/DHnkdep http://Startupxplore.TicTacTi/DHMCnkf Blood specimen (specimen) 03/03/2017 7:50 AM EDT 03/03/2017 8:03 AM EDT Narrative Resulting Agency Comment Spec In Lab Malika Chen MD CHEMISTRY ORDERABLE S [facility] [place] [address] documented in this encounter Visit Diagnoses Diagnosis Malignant neoplasm of left breast in female, estrogen receptor positive, unspecified site of breast documented in this encounter Care Teams Clinical Allergist Relationship Specialty Start Date End Date Ana Her MD [address] [place] [address] PCP - General 07/29/13 documented as of this encounter
--- OUTSIDE RECORDS SUMMARY | 2023-11-18 15:09 | XMS_ITS | Encounter Summary ---
[place] [address] Care Team Providers Care Psych Therapist Name Role Phone Ana Her MD Primary Care Provider [phone] Encounter Details Date Type Department Care Team (Latest Contact Info) Description 04/24/2014 - 04/24/2014 11:59 PM EST Hospital Encounter [place] [address] Maryam Yee MD [facility] [place] [address] Screening breast examination Discharge Disposition: Home Social [...] Comments FILM LIBRARY STORAGE ONLY MAMMO Routine 04/24/2014 12:00 AM EST Screening breast examination documented in this encounter Results * Film Library- Storage Only Mammo (04/24/2014 12:00 AM EST) Narrative [facility] - 02/19/2017 1:46 PM EDT This exam is for storage only and is auto-finalizing. Maryam Yee MD IMG FILM LIBRARY O RDERABLES [place], [place] documented in this encounter Visit Diagnoses Diagnosis Screening breast examination (Not by Mammogram) Other screening breast examination documented in this encounter Care Teams Psych Therapist Relationship Specialty Start Date End Date Ana Her MD [address] [facility] [address] [place] [address] PCP - General 07/29/13 documented as of this encounter
--- OUTSIDE RECORDS SUMMARY | 2023-11-18 15:09 | XMS_ITS | Encounter Summary ---
Author Organization [facility] [place] [address] Care Team Providers Care Tire Classifier Name Role Phone Ana Her MD Primary Care Provider [phone] Encounter Details Date Type Department Care Team (Late st Contact Info) Description 03/03/2017 Notes [place] [address] January Ward MSW Social History Tobacco Use Types Packs/Day Years Used Date Smoking Tobacco: Never Smokeless Tobacco: Never Sex and Gender Information Value Date Recorded Sex Assigned at Not on file Gender Identity Not on file Sexual Orientation Not on file documented as of this encounter Progress Notes * January Ward MSW - 03/03/2017 12:56 PM EDT OFFICE OF CARE MANAGEMENT/CONTINUING MELTER OPERATOR Reason for referral: Digna Olson is a 71 year old, female who was seen in the multidisciplinarybreast care clinic for a surgical consult as she was recently diagnosed with ER/KY+, left breast, invasive mucinous carcinoma. After meeting with Dr. Chen, pt has decided to have a lumpectomy/SLNB. If pt needs radiation therapy, she [place] [facility] [place] [facility] met with pt to complete a psychosocial assessment and to explain my role in the breast program. Pt was encouraged to contact me if she has any questions or concerns. Living arrangements/social supports: Pt lives alone in [place], [place]. She has support from her family and is accompanied to today's appt by her sisters who live in [place]. Employment/Insurance/Finances: Pt is retired and receives Social Security Alf Benefits. Pt has Medicare A and B as well as a BC/BS Medicomp. Pt has prescription coverage through a Part D drug plan. Pt states presently she is not concerned about finances while she receives treatment for her breast cancer. Tobacco/drug/alcohol history: Pt states she does not smoke and has two drinks a week. Advance Directives: Pt has not completed advance directives and was given information and forms to do so. Pt was told that the Shared Decision Making Department could help her to complete her advancedirectives. Pt was asked to provide copies of her advance directives if she completes them on her own so they can be scanned into her medical record. Adjustment to illness/Mental Health Concerns: Pt states she feels less anxious since meeting with Dr. Chen. A 2 out of 10 (10 is the worst distress) on the distress scale. Pt has support from her family and her sisters will assist her through her surgical recovery. I reviewed some of the support and services available to pt in the cancer center. Pt was told that Antonia Oliva is the SW for the [facility]. Plan: [facility] will continue to follow pt to assess and assist with their psychosocial needs. DELONTE Moreno [facility]/[place] [phone] Pager #[phone] documented in this encounter Plan of Treatment Not on file documented as of this encounter Visit Diagnoses Not on filedocumented in this encounter Care Teams Tire Classifier Relationship Specialty Start Date End Date Ana Her MD [address] [place] [address] PCP - General 07/29/13 documented as of this encounter
--- OUTSIDE RECORDS SUMMARY | 2023-11-18 15:09 | XMS_ITS | Encounter Summary ---
Author Organization [facility] [place] [address] Care Team Providers Care Director Of Restaurant Operations Name Role Phone Ana Her MD Primary Care Provider [phone] Encounter Details Date Type Department Care Team (Latest Contact Info) Description 03/30/2017 8:30 AM EST Hospital En[place] [address] Malika Chen MD [facility] [place] [address] Malignant neoplasm of upper-outer quadrant of left [...] Priority Date/Time Associated Diagnosis Comments MAMMO US NEEDLE LOCALIZATION LEFT Routine 03/30/2017 9:00 AM EST Malignant neoplasm of upper-outer quadrant of left breast in female, estrogen receptor positive documented in this encounter Results * Mammo Us Guidance For Needle Localization Left (03/30/2017 9:00 AM EST) Anatomical Region Laterality Modality Breast [...] lidocaine (XYLOCAINE) 10 mg/mL (1 %) injection 10 mg 10 mg, Intradermal, ONCE, 1 dose, On 03/30/17 at 0900, Routine Given 03/30/2017 8:50 AM EST 10 mg documented in this encounter Care Teams Director Of Restaurant Operations Relationship Specialty Start Date End Date Ana Her MD [address] [place] [address] PCP - General 07/29/13 documented as of this encounter
--- OUTSIDE RECORDS SUMMARY | 2023-11-18 15:09 | XMS_ITS | Encounter Summary ---
Author Organization [facility] [place] [address] Care Team Providers Care Supervisor Cigarette Making Department Name Role Phone Ana Her MD Primary Care Provider [phone] Reason for Visit * Reason Comments Follow-up Encounter Details Date Type Department Care Team (Late st Contact Info) Description 10/23/2017 11:00 AM EDT Office Visit H[place] [phone] Mayra Page APRN [facility] [address] Malignant neoplasm of lower-outer quadrant of left [...] Sign Reading Time Taken Comments Blood Pressure 127/84 10/23/2017 10:55 AM EDT Pulse 100 10/23/2017 10:55 AM EDT Temperature 36.6 ??C (97.9 ??F) 10/23/2017 10:55 AM E DT Respiratory Rate 18 10/23/2017 10:55 AM EDT Oxygen Saturation 98% 10/23/2017 10:55 AM EDT Inhaled Oxygen Concentration - - Weight 95.1 kg (209 lb 9.6 oz) 10/23/2017 10:55 AM EDT Height 167.4 cm (5' 5.91) 10/23/2017 10:55 AM E DT Body Mass Index 33.93 10/23/2017 10:55 AM EDT documented in this encounter Progress Notes * Mayra Page, HIGH CLIMBER - 10/23/2017 11:00 AM EDT Digna Olson is a 72 y.o. female here for 6 month follow up. CC: Breast cancer on aromatase inhibitor Interval hx: Digna returns in follow up. She has been on anastrozole for 6 months. She has tolerated this well.She has chronic arthritis which is no worse. She is limited with her quality of life because of spinal stenosis. She is grateful that her pain is relieved with sitting. She would normally take ibuprofen for this, however, since starting coumadin she is unable to take. She does not find tylenol veryhelpful. She otherwise has been doing well. HPI: Diagnosis of breast cancer stemming from [...] cancer cells with immunostaining) Stain intensity: Strong GA immunoreactivity: Positive (>90% cancer cells with immunostaining) [...] ??Excision with image-guided localization ?Lymph Node Sampling: ??[place] lymph node(s) ?Specimen Laterality: ??Left Tumor ?Histologic [...] ??DCIS not present in specimen Lymph Nodes ?[place] Lymph Nodes: [place] lymph node biopsy performed ?Number of [place] Nodes Examined: ??3 ?Number of Lymph Node(s) Examined (sentinel and nonsentinel): 3 ?Lymph Node Involvement: None identified Stage (pTNM) ?Pathological Stage: ?? pT1b pN0 PMH: Past Medical History: Diagnosis Date ??? Breast cancer ??? Fracture of tibia 12/2016 left tibial plateau ??? GERD (gastroesophageal reflux disease) ??? H/O non-insulin dependent diabetes mellitus ??? Spinal stenosis Most recent DEXA scan was 10/28/16 at [facility]. There is no history of thromboembolic [...] Her sister has had a pulmonary embolus. Review of Systems Constitutional: Negative. HENT: Negative. Eyes: Negative. Respiratory: Negative. Gastrointestinal: Negative. Genitourinary: Negative. Musculoskeletal: Positive for joint pain. Chronic osteoarthritis of spine, hands, knees. Unchanged. Skin: Negative. Neurological: Negative. Endo/Heme/Allergies: Negative. Psychiatric/Behavioral: Negative. Exam: Most Recent Vitals: 10/23/17 1055 BP: 127/84 Pulse: 100 Resp: 18 Temp: 36.6 ??C (97.9 ??F) SpO2: 98% Physical Exam Constitutional: She is oriented to person, place, and time. She appears well- developed and well-nourished. No distress. HENT: Nose: Nose normal. Mouth/Throat: Oropharynx is clear and moist. No oropharyngeal exudate. Eyes: Conjunctivae and EOM are normal. Pupils are equal, round, and reactive to light. No scleral icterus. Neck: Neck supple. No thyromegaly present. Cardiovascular: Normal rate. A fib Pulmonary/Chest: Effort normal and breath sounds normal. She has no wheezes. She exhibits no tenderness. Abdominal: Soft. Bowel sounds are normal. She exhibits no distension. There is no tenderness. Musculoskeletal: She exhibits no edema or tenderness. Lymphadenopathy: She has no cervical adenopathy. Neurological: She is alert and oriented to person, place, and time. No cranial nerve deficit. Skin: Skin is warm and dry. She is not diaphoretic. Left shoulder with non-healing scab for 3 months. Psychiatric: She has a normal mood and affect. Her behavior is normal. 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 She is now status post partial mastectomy and sentinel node biopsy. Her invasive tumor was 6 mm in largest dimension. There was no angiolymphatic invasion. Nodes were negative. PT1N0. Tumor was strongly positive for both of these estrogen and progesterone receptors. HER2 is negative. Digna started on anastrozole about 6 months ago. She has been tolerating this well without toxicity. Her chronic arthritis is no worse. I have reviewed her DEXA done on 10/28/16 (in scanned docs) which shows osteopenia. We reviewed that AI's can cause about 4% decrease in bone density per year. I have recommended that she start vitamin d 2,000 IU's per day as well as 600 mg of calcium per day. Wewill repeat her Dexa scan in October of 2018. Her mammogram from today was benign. We will resume witharly routine screening. All questions answered. We will see her back in 6 months. Mayra Page APRN documented in this encounter Plan of Treatment Not on file documented as of this encounter Visit Diagnoses Diagnosis 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, estrogen receptor positive documented in this encounter Care Teams Supervisor Cigarette Making Department Relationship Specialty Start Date End Date Ana Her MD [address] [place] [address] PCP - General 07/29/13 documented as of this encounter
--- OUTSIDE RECORDS SUMMARY | 2023-11-18 15:09 | XMS_ITS | Encounter Summary ---
Author Organization [place] [address] Care Team Providers Care Entry Level Account Representative Name Role Phone Ana Her MD Primary Care Provider [phone] Encounter Details Date Type Department Care Team (Late st Contact Info) Description 03/04/2017 Orders [place] [address] Malika Chen MD [facility] [place] [address] Malignant neoplasm of upper-outer quadrant of left breast in female, estrogen receptor positive Social History Tobacco Use Types Packs/Day Years Used Date Smoking Tobacco: Never Smokeless Tobacco: Never Sex and Gender Information Value Date Recorded Sex Assigned at Not on file Gender Identity Not on file Sexual Orientation Not on file documented as of this encounter Plan of Treatment Not on file documented as of this encounter Results * Mammo Specimen (03/30/2017 [...] Malika Chen MD IMG MAMMO ORDERABLE S * Mammo [place] Node Injection (03/30/2017 9:01 AM EST) Anatomical [...] images/test and approve the above interpretation. Malika DRUMMOND MAMMO ORDERABLE S * Mammo Us Guidance For Needle Localization [...] images/test and approve the above interpretation. Malika DRUMMOND MAMMO ORDERABLE S documented in this encounter Visit Diagnoses Diagnosis Malignant neoplasm of upper-outer quadrant of left breast in female, estrogen receptor positive Malignant neoplasm of upper-outer quadrant of left breast in female, estrogen receptor positive Malignant neoplasm of upper-outer quadrant of left breast in female, estrogen receptor positive Malignant neoplasm of upper-outer quadrant of left breast in female, estrogen receptor positive documented in this encounter Care Teams Entry Level Account Representative Relationship Specialty Start Date End Date Ana Her MD [address] [facility] [address] [place] [address] PCP - General 07/29/13 documented as of this encounter
--- OUTSIDE RECORDS SUMMARY | 2023-11-18 15:09 | XMS_ITS | Encounter Summary ---
Author Organization [facility] [place] [address] Care Team Providers Care Machine Bookkeeper Name Role Phone Ana Her MD Primary Care Provider [phone] Encounter Details Date Type Department Care Team (Latest Contact Info) Description 02/17/2017 - 02/17/2017 12:14 AM EDT Hospital Encounter [place] [phone] Maryam Yee MD [facility] [place] [address] Screening breast examination Discharge Disposition: Home Social [...] FILM LIBRARY STORAGE ONLY MAMMO Routine 02/17/2017 12:00 AM EDT Screening breast examination documented in this encounter Results * Film Library- Storage Only Mammo (02/17/2017 12:00 AM EDT) Narrative [facility] - 02/19/2017 1:59 PM EDT This exam is for storage only and is auto-finalizing. Maryam Yee MD IMG FILM LIBRARY O RDERABLES [place], [place] documented in this encounter Visit Diagnoses Diagnosis Screening breast examination (Not by Mammogram) Other screening breast examination documented in this encounter Care Teams Machine Bookkeeper Relationship Specialty Start Date End Date Ana Her MD [address] [place] [address] PCP - General 07/29/13 documented as of this encounter
--- OUTSIDE RECORDS SUMMARY | 2023-11-18 15:09 | XMS_ITS | Encounter Summary ---
Author Organization [facility] [place] [address] Care Team Providers Care Hand Potter Name Role Phone Ana Her MD Primary Care Provider [phone] Encounter Details Date Type Department Care Team (Late st Contact Info) Description 03/30/2017 Notes [place] [address] January Ward MSW Social History Tobacco Use Types Packs/Day Years Used Date Smoking Tobacco: Never Smokeless Tobacco: Never Sex and Gender Information Value Date Recorded Sex Assigned at Not on file Gender Identity Not on file Sexual Orientation Not on file documented as of this encounter Progress Notes * January Ward MSW - 03/30/2017 10:20 AM EST Pt is a 71 year old, female who was admitted for a lumpectomy/SLNB as she was recently diagnosed with invasive mucinous carcinoma. [facility] attempted to meet with pt in Same Day surgery this morning but she was still in radiology. I spoke with her ex-, Keith, who states she will be staying with him tondenise. Their granddaughters are traveling from [place] and plan to accompany pt to see her operators teacher at [facility] tomorrow. Pt has been followed by this physician for her cardiac problems. [facility] will continue to provide support and resources to pt. documented in this encounter Plan of Treatment Not on file documented as of this encounter Visit Diagnoses Not on filedocumented in this encounter Care Teams Hand Potter Relationship Specialty Start Date End Date Ana Her MD [address] [facility] [address] [place] [address] PCP - General 07/29/13 documented as of this encounter
--- OUTSIDE RECORDS SUMMARY | 2023-11-18 15:09 | XMS_ITS | Encounter Summary ---
Author Organization [facility] Address [address] [facility] [place] [address] Care Team Providers Care Community Development Coordinator Name Role Phone Ana Her MD Primary Care Provider [phone] Encounter Details Date Type Department Care Team (Late st Contact Info) Description 09/13/2015 Interpretation Only Radiology [address] [place] [address] Unknown None Social History Tobacco Use Types Packs/Day Years Used Date Smoking Tobacco: Never Smokeless Tobacco: Never Sex and Gender Information Value Date Recorded Sex Assigned at Not on file Gender Identity Not on file Sexual Orientation Not on file documented as of this encounter Plan of Treatment Not on file documented as of this encounter Procedures Procedure Name Priority Date/Time Associated Diagnosis Comments XR FLUORO NO RAD <1HR - RADIOLOGY USE Routine 09/13/2015 6:56 AM EDT documented in this encounter Results * XR Fluoro <1Hr - Radiology Use (09/13/2015 6:56 AM EDT) Anatomical Region Laterality Modality N/A Radiographic Carol ging 09/13/2015 6:56 AM EDT Narrative 09/13/2015 6:56 AM EDT APD Historical Result Principal Overnight Babysitter: ??MAE ??ESCHBACH IMAGE-INTENSIFIER FILMS: INDICATION: ??Right L4 foraminotomy. FINDINGS: A total of 5.8 seconds of fluoro time was utilized by Geraldine Claros MD. ??Estimated dose is 5.96 mGy. ??Two image-intensifier films record the event. ??They show the lumbosacral junction in the lateral projection with a surgical instrument indicating the level of L4. ??No Radiologist was present for this exam. Mae Shelley DO TOBIN/mn [id number] Procedure Note Unknown - 11/01/2018 APD Historical Result Principal Overnight Babysitter: MAE SHELLEY IMAGE-INTENSIFIER FILMS: INDICATION: Right L4 foraminotomy. FINDINGS: A total of 5.8 seconds of fluoro time was utilized by Geraldine Claros MD. Estimated dose is 5.96 mGy. Two image-intensifier films record the event. They show thelumbosacral junction in the lateral projection with a surgical instrument indicating the level of L4.No Radiologist was present for this exam. Mae Shelley DO TOBIN/mn [id number] Unknown IMG FLUORO ORDERABLE S documented in this encounter Visit Diagnoses Not on filedocumented in this encounter Care Teams Community Development Coordinator Relationship Specialty Start Date End Date Ana Her MD [address] [place] [address] PCP - General 07/29/13 documented as of this encounter
--- OUTSIDE RECORDS SUMMARY | 2023-11-18 15:10 | XMS_ITS | Encounter Summary ---
Author Organization [facility] Address [address] [place] [address] Care Team Providers Care Corporate Buyer Name Role Phone Unknown, Provider Primary Care Provider [phone] Encounter Details Date Type Department Care Team (Late st Contact Info) Description 04/06/2022 Lab Requisition [facility] Pathology & Laboratory Medicine - [facility] [address] [place] [address] Outr Resulting Lab, Provider Social History Tobacco Use Types Packs/Day Years Used Date Smoking Tobacco: Never Assessed Sex and Gender Information Value Date Recorded Sex Assigned at Not on file Gender Identity Not on file Sexual Orientation Not on file documented as of this encounter Plan of Treatment Not on file documented as of this encounter Procedures Procedure Name Priority Date/Time Associated Diagnosis Comments FECAL BACTERIAL PATHOGENS BY PCR Routine 04/05/2022 10:41 EST documented in this encounter Results * FECAL BACTERIAL PATHOGENS BY PCR (04/05/2022 10:41 EST) Salmonella PCR Negative Negative 04/06/2022 22:54 EST [facility] Shigella/Enteroin vasive E. coli Negative Negative 04/06/2022 22:54 EST [facility] HN LAB CAMPYLOBACTER PCR Negative Negative 04/06/2022 22:54 EST [facility] Shiga Toxin PCR Negative Negative 22:54 EST [facility] Feces SPECIMEN FROM RECTUM / Unknown 04/05/2022 10:41 EST 04/06/2022 18:31 EST Provider Outr Resulting Lab MICROBIOLOGY - GENERAL ORDERABLES [facility] [address] [place] [address] documented in this encounter Visit Diagnoses Not on filedocumented in this encounter Care Teams Corporate Buyer Relationship Specialty Start Date End Date Unknown, Provider, PCP - General 01/13/14 documented as of this encounter
--- OUTSIDE RECORDS SUMMARY | 2023-11-18 15:10 | XMS_ITS | Encounter Summary ---
[place] [address] Care Team Providers Care Infrastructure Manager Name Role Phone Unavailable Primary Care Provider Unavailabl e Encounter Details Date Type Department Care Team (Latest Contact Info) Description 04/04/2005 - 04/04/2005 11:59 PM EST Hospital Encounter [place] [address] Jackie Cisneros APRN [address] [place] [address] Discharge Disposition: Home Social History Tobacco Use [...] Comments FILM LIBRARY STORAGE ONLY MAMMO Routine 04/04/2005 12:00 AM EST documented in this encounter Results * Film Library- Storage Only Mammo (04/04/2005 12:00 AM EST) Narrative [facility] - 02/23/2017 3:32 PM EDT This exam is for storage only and is auto-finalizing. Jackie Cisneros APRN G FILM LIBRARY ORD ERABLES NADINE Sethi documented in this encounter Visit Diagnoses Not on filedocumented in this encounter
--- OUTSIDE RECORDS SUMMARY | 2023-11-18 15:10 | XMS_ITS | Encounter Summary ---
Author Organization [facility] Address [address] [place] [address] Care Team Providers Care Biodiesel Division Manager Name Role Phone Unknown, Provider Primary Care Provider Encounter Details Date Type Department Care Team (Late st Contact Info) Description 08/12/2021 Lab Requisition [facility] Pathology & Laboratory Medicine - [address] [address] Outr Resulting Lab, Provider Social History Tobacco [...] Procedure Name Priority Date/Time Associated Diagnosis Comments ZZCOVID-19 TEST [facility] PCR Today 08/12/2021 15:00 EDT COVID-19 TESTING Routine 08/12/2021 15:0 0 EDT documented in this encounter Results * COVID-19 TEST [facility] PCR (08/12/2021 15:00 EDT) Swab 08/12/2021 15:0 0 EDT 08/13/2021 16:56 EDT Provider Outr Resulting Lab MICROBIOLOGY - GENERAL ORDERABLES [facility] [address] [place] [address] * COVID-19 TESTING (08/12/2021 15:00 EDT) COVID-19 rt-PCR Result Negative Negative 08/14/2021 11:53 EDT [facility] Comment: This test has not been FDA cleared or approved. This test has been authorized by FDA under an EUA for use by authorized laboratories. This test has been authorized only for detection of nucleic acid from 2019-nCoV, not for any other viruses or pathogens. This test is only authorized for the duration of the declaration that circumstances exist justifying the authorization of emergency use of in vitro diagnostic tests for detection and/or diagnosis of 2019-nCoV under section 564(b)(1) of Act, 21 U.S.C ?? 360bbb-3(b) (1), unless the authorization is terminated or revoked sooner. Negative results do not preclude 2019-nCoV infection and should not be used as the sole basis for treatment or other patient management decisions. Negative results must be combined with clinical observations, patient history, and epidemiological information. Testing was performed using the palomo SARS-CoV-2 assay ([employer] for [employer] on the Palomo 6800 System Performing Lab [facility] [address] [facility] 08/14/2021 11:53 EDT [facility] Swab 08/12/2021 15:0 0 EDT 08/13/2021 16:56 EDT Provider Outr Resulting Lab MICROBIOLOGY - GENERAL ORDERABLES [facility] [address] [place] [address] documented in this encounter Visit Diagnoses Not on filedocumented in this encounter Care Teams Biodiesel Division Manager Relationship Specialty Start Date End Date Unknown, Provider, PCP - General 01/13/14 documented as of this encounter
--- OUTSIDE RECORDS SUMMARY | 2023-11-18 15:10 | XMS_ITS | Encounter Summary ---
[place] [address] Care Team Providers Care Director Of Counseling Name Role Phone Unavailable Primary Care Provider Unavailabl e Encounter Details Date Type Department Care Team (Latest Contact Info) Description 01/29/2013 - 01/29/2013 11:59 PM EDT Hospital Encounter [place] [address] Jackie Cisneros APRN [address] [place] [address] Discharge Disposition: Home Social History Tobacco Use [...] Comments FILM LIBRARY STORAGE ONLY MAMMO Routine 01/29/2013 12:00 AM EDT documented in this encounter Results * Film Library- Storage Only Mammo (01/29/2013 12:00 AM EDT) Narrative [facility] - 02/23/2017 3:26 PM EDT This exam is for storage only and is auto-finalizing. Jackie Cisneros APRN IMG FILM LIBRARY ORD ERABLES NADINE Sethi documented in this encounter Visit Diagnoses Not on filedocumented in this encounter
--- OUTSIDE RECORDS SUMMARY | 2023-11-18 15:10 | XMS_ITS | Encounter Summary ---
Author Organization [facility] Address [address] [place] [address] Care Team Providers Care Cable Way Operator Name Role Phone Unknown, Provider Primary Care Provider [phone] Encounter Details Date Type Department Care Team (Late st Contact Info) Description 01/20/2020 Lab Re[address] [facility] Pathology & Laboratory Medicine - [facility] [address] [place] [address] Outr Resulting Lab, Provider Social History Tobacco [...] Procedure Name Priority Date/Time Associated Diagnosis Comments DO NOT ORDER STANDALONE - [facility] COVID TEST Today 01/20/2020 10:30 EDT COVID-19 TESTING Routine 01/20/2020 10:3 0 EDT documented in this encounter Results * DO NOT ORDER STANDALONE - [facility] COVID TEST (01/20/2020 10:30 EDT) COVID-19 rt-PCR Result NEGATIVE Negative 01/21/2020 16:10 EDT [facility] Comment: 2019-novel Coronavirus (2019-nCoV) not detected by the qRT-PCR assay. Consider testing for other respiratory viruses or re-collecting for 2019-nCoV testing. Note: Optimum timing for peak viral levels during infections caused by 2019-nCoV have not been determined. Collection of multiple specimens from the same patient may be necessary to detect the virus. Limitations Positive results are indicative of active infection with SARS-CoV-2 but do not rule out bacterial infection or co-infection with other viruses. The agent detected may not be the definite cause of disease. In addition, detection of viral RNA may not indicate the presence of infectious virus or that SARS-CoV-2 is the causative agent for clinical symptoms. Negative results do not preclude SARS-CoV-2 infection and should not be used as the sole basis for patient management decisions. Negative results must be combined with clinical observations, patient history, and epidemiological information. False negative results may also occur if amplification inhibitors are present in the specimen or if inadequate numbers of organisms are present in the specimen. Optimum specimen types and timing for peak viral levels during infections caused by SARS-CoV-2 have not been fully determined. Collection of multiple specimens (types and time points) from the same patient may be necessary to detect the virus. The test was validated for use with upper respiratory specimens obtained via nasopharyngeal or oropharyngeal swabs in VTM, UTM, M4, M5, M6, saline, and MTM media. The performance of this test has not been established for other specimens. Specimens collected using other FDA recommended Specimen Collection Materials listed in the FDA COVID-19 Diagnostic [employer] communication (July 28, 2019) are processed with the caveat that they were not all validated for use with this test and the result must be interpreted in this context. Furthermore, a false negative results may occur if a specimen is improperly collected, transported or handled. If the virus mutates in the RT-PCR target region, SARS-CoV-2 may not be detected or may be detected less predictably. Inhibitors or other types of interference may produce a false negative result. An interference study evaluating the effect of common cold medications was not performed. This test is not FDA-cleared but its performance characteristics were established by our CLIA-certified, CAP-accredited, high complexity laboratory in accordance with CLIA regulations, [employer] [place] (CAP) guidelines (Jul 21, 2019), and FDA guidance (Jul 02, 2019). This test is only for use under the Food and Drug Administration's Emergency Use Authorization. Swab ENTIRE NASOPHARYNX / Unknown 01/20/2020 10:30 EDT 01/20/2020 15:35 EDT Provider Outr Resulting Lab MICROBIOLOGY - GENERAL ORDERABLES [place] * COVID-19 TESTING (01/20/2020 10:30 EDT) Pathologist [facility] COVID-19 rt-PCR Result NEGATIVE Negative 01/21/2020 17:21 EDT [facility] Comment: 2019-novel Coronavirus (2019-nCoV) not detected by the qRT-PCR assay. Consider testing for other respiratory viruses or re-collecting for 2019-nCoV testing. Note: Optimum timing for peak viral levels during infections caused by 2019-nCoV have not been determined. Collection of multiple specimens from the same patient may be necessary to detect the virus. Limitations Positive results are indicative of active infection with SARS-CoV-2 but do not rule out bacterial infection or co-infection with other viruses. The agent detected may not be the definite cause of disease. In addition, detection of viral RNA may not indicate the presence of infectious virus or that SARS-CoV-2 is the causative agent for clinical symptoms. Negative results do not preclude SARS-CoV-2 infection and should not be used as the sole basis for patient management decisions. Negative results must be combined with clinical observations, patient history, and epidemiological information. False negative results may also occur if amplification inhibitors are present in the specimen or if inadequate numbers of organisms are present in the specimen. Optimum specimen types and timing for peak viral levels during infections caused by SARS-CoV-2 have not been fully determined. Collection of multiple specimens (types and time points) from the same patient may be necessary to detect the virus. The test was validated for use with upper respiratory specimens obtained via nasopharyngeal or oropharyngeal swabs in VTM, UTM, M4, M5, M6, saline, and MTM media. The performance of this test has not been established for other specimens. Specimens collected using other FDA recommended Specimen Collection Materials listed in the FDA COVID-19 [employer] communication (July 28, 2019) are processed with the caveat that they were not all validated for use with this test and the result must be interpreted in this context. Furthermore, a false negative results may occur if a specimen is improperly collected, transported or handled. If the virus mutates in the RT-PCR target region, SARS-CoV-2 may not be detected or may be detected less predictably. Inhibitors or other types of interference may produce a false negative result. An interference study evaluating the effect of common cold medications was not performed. This test is not FDA-cleared but its performance characteristics were established by our CLIA-certified, CAP-accredited, high complexity laboratory in accordance with CLIA regulations, [employer] [place] [employer] (CAP) guidelines (Jul 21, 2019), and FDA guidance (Jul 02, 2019). This test is only for use under the Food and Drug Administration's Emergency Use Authorization. Performing Lab [facility] 01/21/2020 17:21 EDT [facility] Swab 01/20/2020 10:3 0 EDT 01/20/2020 15:35 EDT Provider Outr Resulting Lab MICROBIOLOGY - GENERAL ORDERABLES [facility] [address] [place], [place] [id number] [place] [address] LABORATORY [place], [place] documented in this encounter Visit Diagnoses Not on filedocumented in this encounter Care Teams Cable Way Operator Relationship Specialty Start Date End Date Unknown, Provider, PCP - General 01/13/14 documented as of this encounter
--- OUTSIDE RECORDS SUMMARY | 2023-11-18 15:10 | XMS_ITS | Encounter Summary ---
[place] [address] Care Team Providers Care Finishing Machine Operator Name Role Phone Unavailable Primary Care Provider Unavailabl e Encounter Details Date Type Department Care Team (Latest Contact Info) Description 12/08/2008 - 12/08/2008 11:59 PM EDT Hospital Encounter [place] [address] Jackie Cisneros APRN [address] [place] [address] Discharge Disposition: Home Social History Tobacco Use [...] Comments FILM LIBRARY STORAGE ONLY MAMMO Routine 12/08/2008 12:00 AM EDT documented in this encounter Results * Film Library- Storage Only Mammo (12/08/2008 12:00 AM EDT) Narrative [facility] - 02/23/2017 3:30 PM EDT This exam is for storage only and is auto-finalizing. Jackie Cisneros APRN IMG FILM LIBRARY ORD ERABLES NADINE Sethi documented in this encounter Visit Diagnoses Not on filedocumented in this encounter
--- OUTSIDE RECORDS SUMMARY | 2023-11-18 15:10 | XMS_ITS | Encounter Summary ---
[place] [address] Care Team Providers Care Behavior Therapist Name Role Phone Unavailable Primary Care Provider Unavailabl e Encounter Details Date Type Department Care Team (Latest Contact Info) Description 03/19/2006 - 03/19/2006 11:59 PM EST Hospital Encounter [place] [address] Jackie Cisneros APRN [address] [place] [address] Discharge Disposition: Home Social History Tobacco Use [...] Comments FILM LIBRARY STORAGE ONLY MAMMO Routine 03/19/2006 12:00 AM EST documented in this encounter Results * Film Library- Storage Only Mammo (03/19/2006 12:00 AM EST) Narrative [facility] - 02/23/2017 3:31 PM EDT This exam is for storage only and is auto-finalizing. Jackie Cisneros APRN G FILM LIBRARY ORD ERABLES NADINE Sethi documented in this encounter Visit Diagnoses Not on filedocumented in this encounter
--- OUTSIDE RECORDS SUMMARY | 2023-11-18 15:10 | XMS_ITS | Encounter Summary ---
Author Organization [facility] Address [address] [place] [address] Care Team Providers Care Temporary Receptionist Name Role Phone Unknown, Provider Primary Care Provider Encounter Details Date Type Department Care Team (Late st Contact Info) Description 10/26/2022 Lab Requisition [facility] Pathology & Laboratory Medicine - [facility] [address] [place] [address] Outr Resulting Lab, Provider Social History Tobacco [...] Comments FECAL BACTERIAL PATHOGENS BY PCR Routine 10/25/2022 15:00 EDT GIARDIA AND CRYPTOSPORIDIUM ANTIGENS Routine 10/25/2022 15:00 EDT OVA/PARASITE EXAM Routine 10/25/2022 15: 00 EDT documented in this encounter Results * GIARDIA AND CRYPTOSPORIDIUM ANTIGENS (10/25/2022 15:00 EDT) Giardia and Cryptosporidium Cryptosporidium Antigen Neg and Giardia Antigen Neg Cryptosporidium Antigen Neg and Giardia Antigen Neg 13:48 EDT [facility] Feces SPECIMEN FROM RECTUM / Unknown 10/25/2022 15:00 EDT 10/26/2022 15:25 EDT Provider Outr Resulting Lab MICROBIOLOGY - GENERAL ORDERABLES Performing Organization Address City/[facility]/ZIP Co de Phone Number [facility] [address] [place] [address] * FECAL BACTERIAL PATHOGENS BY PCR (10/25/2022 15:00 EDT) Salmonella PCR Negative Negative 10/26/2022 19:17 EDT [facility] Shigella/Enteroin vasive E. coli Negative Negative 10/26/2022 19:17 EDT [facility] HN LAB CAMPYLOBACTER PCR Negative Negative 10/26/2022 19:17 EDT [facility] Shiga Toxin PCR Negative Negative 19:17 EDT [facility] Feces SPECIMEN FROM RECTUM / Unknown 10/25/2022 15:00 EDT 10/26/2022 15:25 EDT Provider Outr Resulting Lab MICROBIOLOGY - GENERAL ORDERABLES Performing Organization Address [facility] Co de Phone Number [facility] [address] [place] [address] * OVA/PARASITE EXAM (10/25/2022 15:00 EDT) Parasite No ova and parasites seen. 10/28/2022 15:08 EDT [facility] Feces SPECIMEN FROM RECTUM / Unknown 10/25/2022 15:00 EDT 10/26/2022 15:25 EDT Narrative [facility] - 10/28/2022 15:08 EDT (If Cryptosporidium, Cyclospora, or Microsporidium are suspected, specific tests must be requested.) Single negative specimen does not rule out the possibility of a parasitic infection. Provider Outr Resulting Lab MICROBIOLOGY - GENERAL ORDERABLES Performing Organization Address [facility] Co de Phone Number [facility] [address] [place] [address] documented in this encounter Visit Diagnoses Not on filedocumented in this encounter Care Teams Temporary Receptionist Relationship Specialty Start Date End Date Unknown, Provider, PCP - General 01/13/14 documented as of this encounter
--- OUTSIDE RECORDS SUMMARY | 2023-11-18 15:10 | XMS_ITS | Encounter Summary ---
Author Organization [facility] Address [address] [place] [address] Care Team Providers Care Anatomic Pathology Assistant Name Role Phone Unknown, Provider Primary Care Provider Encounter Details Date Type Department Care Team (Late st Contact Info) Description 03/17/2017 Results Only [facility] [phone] Kat Lazaro MD [address] [place] [address] [place] [address] Social History Tobacco Use Types Packs/Day Years Used Date Smoking Tobacco: Never Assessed Sex and Gender Information Value Date Recorded Sex Assigned at Not on file Gender Identity Not on file Sexual Orientation Not on file documented as of this encounter Plan of Treatment Not on file documented as of this encounter Procedures Procedure Name Priority Date/Time Associated Diagnosis Comments SURGICAL PATHOLOGY Routine 03/17/2017 16 :15 EST documented in this encounter Results * SURGICAL PATHOLOGY (03/17/2017 16:15 EST) Pathology Report: SURGICAL PATHOLOGY REPORT Reports generated via electronic interface contain original data; however they are lacking the format of the original report. Caution should be taken when reading/interpret ing unformatted reports. Name: ? DIGNA KIMBROUGH ? Accession #: ? [id number] ? : ? 1945 (Age: 71) ??F ? Collect Date: ? 03/17/2017 ? Location: ? [facility] ? Receive Date: ? 03/17/2017 ? Provider: KAT LAZARO MD Copy to: ERICH LORENZ MD ? Final Pathologic Diagnosis: COLON, TRANSVERSE POLYP, BIOPSY: - ??Hyperplastic polyp. - ??Deeper levels examined. Document reviewed and electronically signed by: HIREN HUGHES MD Report ??Date: 03/19/2017 15:16 By the signature above, the attending physician certifies that he/she has personally conducted a gross and/or microscopic examination of the described specimens and rendered or confirmed the above diagnosis. Specimen(s) Received: Transverse colon polyp Clinical History: Colorectal screening, diarrhea Gross Description: ? Received in formalin labelled with proper patient identification (initials B, J) and transverse colon polyp are three pink-avina tissues (0.2 x 0.1 x 0.1 cm to 0.2 x 0.2 x 0.2 cm). Entirely submitted in block 1. AMI Fajardo (ASCP) 03/18/2017 8:14 AM End of Report [facility] 03/17/2017 16:1 5 EST 03/17/2017 16:15 EST Kat Lazaro MD PATHOLOGY [facility] [address] [place] [address] documented in this encounter Visit Diagnoses Not on filedocumented in this encounter Care Teams Anatomic Pathology Assistant Relationship Specialty Start Date End Date Unknown, Provider, PCP - General 01/13/14 documented as of this encounter
--- OUTSIDE RECORDS SUMMARY | 2023-11-18 15:10 | XMS_ITS | Encounter Summary ---
[place] [address] Care Team Providers Care Aperture Mask Etcher Name Role Phone Ana Her MD Primary Care Provider [phone] Encounter Details Date Type Department Care Team (Late st Contact Info) Description 07/26/2013 Orders [place] [address] Ana Her MD [facility] [address] [place] [address] Social History Tobacco Use Types Packs/Day Years [...] Diagnosis Comments FILM LIBRARY STORAGE ONLY MR SHOULDER Routine 07/26/2013 10:40 PM EDT documented in this encounter Results * Film Library- Storage only MR Shoulder (07/26/2013 10:40 PM EDT) Anatomical Region Laterality Modality Other 07/26/2013 10:4 0 PM EDT Narrative 07/29/2013 10:45 PM EDT This is a Non-reportable exam Procedure Note 03/28/2014 This is a Non-reportable exam Ana Her MD [facility]M LIBRARY ORD ERABLES documented in this encounter Visit Diagnoses Not on filedocumented in this encounter Care Teams Aperture Mask Etcher Relationship Specialty Start Date End Date Ana Her MD [address] [place] [address] PCP - General 07/29/13 documented as of this encounter
--- OUTSIDE RECORDS SUMMARY | 2023-11-18 15:10 | XMS_ITS | Encounter Summary ---
[place] [address] Care Team Providers Care Utility Lineman Name Role Phone Unavailable Primary Care Provider Unavailabl e Encounter Details Date Type Department Care Team (Latest Contact Info) Description 12/25/2010 - 12/25/2010 11:59 PM EDT Hospital Encounter [place] [address] Jackie Cisneros APRN [address] [place] [address] Discharge Disposition: Home Social History Tobacco Use [...] Comments FILM LIBRARY STORAGE ONLY MAMMO Routine 12/25/2010 12:00 AM EDT documented in this encounter Results * Film Library- Storage Only Mammo (12/25/2010 12:00 AM EDT) Narrative [facility] - 02/23/2017 3:27 PM EDT This exam is for storage only and is auto-finalizing. Jackie Cisneros APRN IMG FILM LIBRARY ORD ERABLES NADINE Sethi documented in this encounter Visit Diagnoses Not on filedocumented in this encounter
--- OUTSIDE RECORDS SUMMARY | 2023-11-18 15:10 | XMS_ITS | Encounter Summary ---
[place] [address] Care Team Providers Care Compliance Field Technician Name Role Phone Unavailable Primary Care Provider Unavailabl e Encounter Details Date Type Department Care Team (Latest Contact Info) Description 12/19/2009 - 12/19/2009 11:59 PM EDT Hospital Encounter [place] [address] Jackie Cisneros APRN [address] [place] [address] Discharge Disposition: Home Social History Tobacco Use [...] Comments FILM LIBRARY STORAGE ONLY MAMMO Routine 12/19/2009 12:00 AM EDT documented in this encounter Results * Film Library- Storage Only Mammo (12/19/2009 12:00 AM EDT) Narrative [facility] - 02/23/2017 3:29 PM EDT This exam is for storage only and is auto-finalizing. Jackie Cisneros APRN IMG FILM LIBRARY ORD ERABLES NADINE Sethi documented in this encounter Visit Diagnoses Not on filedocumented in this encounter
--- OUTSIDE RECORDS SUMMARY | 2023-11-18 15:10 | XMS_ITS | Encounter Summary ---
Author Organization [facility] Address [address] [place] [address] Care Team Providers Care Operations Developer Name Role Phone Unavailable Primary Care Provider Unavailabl e Encounter Details Date Type Department Care Team (Latest Contact Info) Description 01/10/2014 20:50 EDT - 01/10/2014 23:59 EDT Hospital Encounter [facility] [address] [place] [address] Unknown, Provider, Discharge Disposition: Home or Self Care Social History Tobacco Use Types Packs/Day Years Used Date Smoking Tobacco: Never Assessed Sex and Gender Information Value Date Recorded Sex Assigned at Not on file Gender Identity Not on file Sexual Orientation Not on file documented as of this encounter Discharge Disposition Disposition Code Departure Means Destination Home or Self Penitentiary documented in this encounter Plan of Treatment Not on file documented as of this encounter Visit Diagnoses Not on filedocumented in this encounter
--- OUTSIDE RECORDS SUMMARY | 2023-11-18 15:10 | XMS_ITS | Clinical Summary ---
Author Organization [facility] Address [address] [place] [address] Care Team Providers Care Alarm Security Or Surveillance Monitor Name Role Phone Unknown, Provider Primary Care Provider Social History Tobacco Use Types Packs/Day Years Used Date Smoking Tobacco: Never Assessed Sex and Gender Information Value Date Recorded Sex Assigned at Not on file Gender Identity Not on file Sexual Orientation Not on file Plan of Treatment Health Maintenance Due Date Last Done Comments Hepatitis C Screen 1945 RSV Immunization ( o r 60+ Years) (1 - 1-dose 60+ series) 2005 Fall Risk Screening 2010 COVID-19 Vaccine ( season) 2023 Care Teams Alarm Security Or Surveillance Monitor Relationship Specialty Start Date End Date Unknown, Provider, PCP - General 01/13/14
--- OUTSIDE RECORDS SUMMARY | 2023-11-18 15:10 | XMS_ITS | Encounter Summary ---
[place] [address] Care Team Providers Care General Utility Machine Operator Name Role Phone Unavailable Primary Care Provider Unavailabl e Encounter Details Date Type Department Care Team (Latest Contact Info) Description 11/12/2007 - 11/12/2007 11:59 PM EDT Hospital Encounter [place] [address] Jackie Cisneros APRN [address] [place] [address] Discharge Disposition: Home Social History Tobacco Use [...] Comments FILM LIBRARY STORAGE ONLY MAMMO Routine 11/12/2007 12:00 AM EDT documented in this encounter Results * Film Library- Storage Only Mammo (11/12/2007 12:00 AM EDT) Narrative [facility] - 02/23/2017 3:31 PM EDT This exam is for storage only and is auto-finalizing. Jackie Cisneros APRN IMG FILM LIBRARY ORD ERABLES NADINE Sethi documented in this encounter Visit Diagnoses Not on filedocumented in this encounter
--- OUTSIDE RECORDS SUMMARY | 2023-11-18 15:10 | XMS_ITS | Patient Health Record ---
Author Organization [facility] Address [address] [place] [address] Care Team Providers Care Outside Industrial Sales Representative Name Role Phone Non Compass, Provider Primary Care Provider Reason For Referral No Information Medications Medication SIG (Take, Route, Frequency, Duration) Notes Start Date End Date Status Lisinopril 40 MG 1 tablet by mouth on ce a day Active Metoprolol Succinate ER 25 MG 1 tablet Orally Once daily for heart health (Toprol) Active Spironolactone 25 MG 1 tablet Orally Active Coumadin 1 MG 1 tablet Orally Once a day Active lasix 1 tab Oral Active Levothyroxine Sodium 112 mcg 1 tab for t hyroid replacement Orally Nightly Active Allopurinol 100 MG 1 tablet Orally Once a day Active Omeprazole 20 MG 1 capsule Orally 2 x daily (Prilosec) Active Gabapentin 300 MG 1 capsule Orally Twi ce daily as needed Active Social History Tobacco Use: Social History Observation Description Date Smoking Status WARNING: Information temporarily unavailable Tobacco* Question Answer Notes Cigarette Use Current Every Day Alcohol AUDIT-C* Question Answer Notes 1. How often did you have a drink containing alcohol in the past year? 2 pts - Two to four times a month 2. How many drinks did you h ave on a typical day when you were drinking in the past year? 1 pts - 3 or 4 Interpretation Less than 3 - Sugges ts no alcohol misuse Plan Of Treatment No Information Insurance Providers Payer Name Payer Address Payer Phone Subscriber Number Group Number Insured Name Patient Relationship to Insured Coverage Start Date Coverage End Date Medicare [address] [place] [id number] Digna Olson Self - patient is the insured Blue Cross Blue Shield Medicare Plan [address] [place], [place] [id number] Digna Olson Self - patient is the insured Medical (General) History Medical History History ICD Code Atrial fibrillation Hypertension Hypothyroidism Non insulin-dependent diabetes
--- OUTSIDE RECORDS SUMMARY | 2023-11-18 15:10 | XMS_ITS | Referral Summary ---
Author Organization [facility] Address [address] [place] [address] Care Team Providers Care Meteorological Aide Name Role Phone Unknown, Provider Primary Care Provider Social History Tobacco Use Types Packs/Day Years Used Date Smoking Tobacco: Never Assessed Sex and Gender Information Value Date Recorded Sex Assigned at Not on file Gender Identity Not on file Sexual Orientation Not on file Plan of Treatment Not on file Care Teams Meteorological Aide Relationship Specialty Start Date End Date Unknown, Provider, PCP - General 01/13/14
--- NOTE | 2023-11-18 15:30 | DI.US_ITS ---
Exam(s) US EXTREMITY VENOUS BI EXAM: US EXTREMITY VENOUS BI CLINICAL HISTORY: bilat LE DVT study- leg edema, varicosities. TECHNIQUE: Bilateral lower extremity venous ultrasound performed using grayscale, color-flow, and sp ectral Doppler analysis. COMPARISON: No exams were available for comparison FINDINGS: The bilateral common femoral, femoral and popliteal veins demonstrate normal compressibility, augment ation, and color Doppler. The posterior tibial veins are patent. IMPRESSION: Right: Negative for DVT Left: Negative for DVT DATA REPOSITORY:
[2023-11-18 15:53] LABS: Abs Immature Grans 0.03 10^3/uL (0.0-0.06); Absolute Basophil Count 0.05 10^3/uL (0.0-0.2); Absolute Eosinophil Count 0.45 10^3/uL (0.0-0.7); Absolute Lymphocyte Count 1.15 10^3/uL (1.2-3.4); Absolute Monocyte Count 0.51 10^3/uL (0.1-0.8); Basophils % 0.6 %; Eosinophils % 5.2 %; HGB 10.7 g/dL (11.2-15.7); Immature Grans % 0.3 %; Lymphocytes % 13.2 %; MCH 33.9 pg (27.0-33.0); MCHC 32.4 % (32.0-36.0); MCV 104 fL (80-95); MPV 11.2 fL (8.0-11.0); Monocytes % 5.9 %; Neutrophils % 74.8 %; Platelet Count 134 10^3/uL (130-400); RBC 3.16 10^6/uL (3.93-5.22); RDW 14.6 % (11.7-14.6); RDW-SD 56.2 fL; WBC 8.69 10^3/uL (4.4-10.8)
[2023-11-18 16:06] LABS: PTT Activated 19.6 sec (23.6-32.8); Prothrombin Time 10.5 sec (9.1-11.1)
[2023-11-18 16:15] LABS: ALT 16 U/L (14-59); AST 15 U/L (15-37); Albumin 3.8 g/dL (3.4-5.0); Alkaline Phosphatase 68 U/L (46-116); Anion Gap 8.4 mmol/L (3-11); BUN 15 mg/dL (7-18); Bilirubin, Total 0.92 mg/dL (0.2-1.0); CO2 29.6 mmol/L (21.0-32.0); Chloride 106 mmol/L (98-107); Estimated GFR 57.66 (mL/min/1.73m2); Glucose 100 mg/dL (74-106); Lipase 24 U/L (16-77); Magnesium 1.9 mg/dL (1.8-2.4); NT-proBNP 3052 pg/mL (<300); Potassium 3.6 mmol/L (3.5-5.1); Sodium 144 mmol/L (136-145); Total Protein 6.8 g/dL (6.4-8.2); Troponin I < 50 ng/L (< or =60)
--- NOTE | 2023-11-18 16:19 | DI.CT_ITS ---
Exam(s) CT CHEST PE CTA EXAM: CT CHEST PE CTA CLINICAL HISTORY: tachycardia, atrial fib on thinners. TECHNIQUE: Imaging Protocol: Axial CT angiography was performed with multi-slice acquisition and mu lti-planar reconstructions as well as axial, coronal and sagittal MIP reconstructions. CONTRAST MATERIAL: Intravenous: Omnipaque 350 Contrast volume:100 ml COMPARISON: CT CT CHEST/ABD WO from 03/10/2022 FINDINGS: Pulmonary Arteries: No evidence of filling defect to suggest pulmonary emboli. Tracheobronchial tree: No mucous plugging. No significant peribronchial thickening. No bronchiect asis. Mediastinum and Cris: No dominant adenopathy or fluid collection. Pulmonary parenchyma: The mild interlobular septal thickening greater posteriorly which could indicat e mild CHF. No consolidation or dominant measurable mass. Pleura: Small left pleural effusion. Heart: The heart is moderately dilated. Posterior pericardial effusion. Minimal pericardial thicken ing anteriorly. Mild coronary artery calcifications are seen. Status post TAVR. Pacemaker leads. Aorta: Thoracic aorta non-dilated. No dissection. Upper abdomen: Suture material at GE junction. Bones: Scoliosis. Stable mild compression fractures. Tubes, Catheters, and Lines: None Soft tissues: Unremarkable. IMPRESSION: No evidence of pulmonary embolism. Cardiomegaly. Small pericardial effusion seen posteriorly. Small left pleural effusion. Mild pulmonary edema. RADIATION DOSE DELIVERED: Total DLP DATA REPOSITORY: All CT scans at this facility are submitted to the National Radiology Data Registry (NRDR) Dose Index Registry (DIR) with the [employer] (ACR). RADIATION OPTIMIZATION: All CT scans at this facility use at least one of these dose optimization te chniques: automated exposure control; mA and/or kV adjustment per patient size (includes targeted exa ms where dose is matched to clinical indication); or iterative reconstruction.
[2023-11-18 16:20] LABS: TSH (W/Ref FT4) 0.49 uIU/mL (0.36-3.74)
[2023-11-18] MEDS: Normal Saline - Diluent 50 ML VIAL IJ (18:29)
[2023-11-18] MEDS: Omnipaque 350 MG/ML 100 ML BTL IJ (18:30)
--- NOTE | 2023-11-18 18:37 | W.ED.GENAD ---
Discharge Plan Disposition Patient Disposition: Admit to [facility] Condition: Stable Discharge Details Chief Complaint: SOB Clinical Impression: Congestive heart failure, Atrial fibrillation, Pericardial effusion Primary Care Provider: Ana Her ED Provider: Gianni Cheung Home Meds and New Rx's Prescriptions: No Action calcium carbonate 600 mg calcium (1,500 mg) Tablet 600 mg PO DAILY ascorbic acid (vitamin C) [Vitamin C] 500 mg Tablet 500 mg PO DAILY ferrous sulfate 325 mg (65 mg iron) Tablet 325 mg PO DAILY magnesium 250 mg Tablet 250 mg PO BID tolnaftate [Antifungal (tolnaftate)] 1 % cream 1 applic topical DAILY Qty: 30 0RF allopurinol 100 mg tablet 200 mg PO DAILY Patient Comments: 02.11.17 Pt states down to Qday.HE cholecalciferol (vitamin D3) 2,000 unit tablet 2,000 unit PO DAILY carvedilol 6.25 mg tablet 6.25 mg PO BID Rx Instructions: must administer with a meal/food spironolactone 25 mg tablet 25 mg PO DAILY Xarelto 20 mg tablet 20 mg PO DAILY Rx Instructions: must administer with evening meal lisinopril 10 mg tablet 10 mg PO DAILY gabapentin 300 mg capsule 300 mg PO BID Rx Instructions: no abrupt cessation cyanocobalamin (vitamin B-12) [Vitamin B-12] 100 mcg tablet 1,000 mcg PO DIRECTED atorvastatin [Lipitor] 40 MG tablet 40 mg PO QPM furosemide 20 mg tablet 40 mg PO DAILY Rx Instructions: may take 1 additional tablet at noon if needed (per PCP) acetaminophen 500 mg tablet 1,000 mg PO TID Qty: 90 0RF levothyroxine 125 mcg tablet 100 mcg PO DAILY tramadol 50 mg tablet 50 mg PO Q6H PRNQty: 8 0RF HPI General Date/Time Provider Initiated Documentation: 11/18/23 14:50. HPI Narrative: 78 year-old female presents to ED today by POV/ambulating with a chief complaint of increasing bilateral leg swelling, some shortness of breath, mild ache in L ribs with recent TAVR & pacemaker placement d/c'd from [facility] on 10/20/23 with onset ongoing for days. Patient denies overt chest pain. Quality described as increasing leg edema, L>R, mild rib ache, pleuritic, and some SOB worse at night, no radiation to dizziness, diaphoresis, syncope, respiratory distress, coughing, severe headache, visual changes, slurred speech. Severity is described as mild. Palliating factors include nothing specific attempted- patient does take Lasix 40mg PO QD. Provoking factors include recent procedure. Events leading up to the incident/Associated Symptoms: Patient has history of paroxysmal atrial fibrillation- was not in atrial fibrillation on discharge from [facility]. Had a 1 week post-op TTE which showed mild pericardial effusion- was not restarted on rivaroxaban due to this, next ECHO was scheduled for 12/02. Followed by Dr. Burkett at [facility] Cardiology. Patient not anticoagulated. Related Data Home Medications ?Medication ?Instructions ?Recorded ?Confirmed atorvastatin 40 mg tablet (Lipitor) 40 mg PO QPM 06/13/13 11/18/23 allopurinol 100 mg tablet 200 mg PO DAILY 04/13/19 11/18/23 cholecalciferol (vitamin D3) 50 2,000 unit PO DAILY 04/13/19 11/18/23 mcg (2,000 unit) tablet levothyroxine 125 mcg tablet 100 mcg PO DAILY 04/13/19 11/18/23 tramadol 50 mg tablet 50 mg PO Q6H PRN #8 tabs 01/24/20 11/18/23 ascorbic acid (vitamin C) 500 mg 500 mg PO DAILY 04/19/20 11/18/23 tablet (Vitamin C) calcium carbonate 600 mg PO DAILY 04/19/20 11/18/23 ferrous sulfate 325 mg (65 mg 325 mg PO DAILY 04/19/20 11/18/23 iron) tablet magnesium 250 mg tablet 250 mg PO BID 04/19/20 11/18/23 carvedilol 6.25 mg tablet 6.25 mg PO BID 05/28/20 11/18/23 spironolactone 25 mg tablet 25 mg PO DAILY 05/28/20 11/18/23 lisinopril 10 mg tablet 10 mg PO DAILY 08/05/22 11/18/23 rivaroxaban 20 mg tablet (Xarelto) 20 mg PO DAILY 08/05/22 11/18/23 furosemide 20 mg tablet 40 mg PO DAILY 09/25/22 11/18/23 gabapentin 300 mg capsule 300 mg PO BID 09/25/22 11/18/23 acetaminophen 500 mg tablet 1,000 mg (2 x 500 mg) PO TID #90 12/31/22 11/18/23 tabs cyanocobalamin (vitamin B-12) 100 1,000 mcg PO DIRECTED 01/08/23 11/18/23 mcg tablet (Vitamin B-12) tolnaftate 1 % topical cream 1 applic topical DAILY #30 grams 01/12/23 11/18/23 (Antifungal (tolnaftate)) Previous Rx's ?Medication ?Instructions ?Recorded tramadol 50 mg tablet 50 mg PO Q6H PRN #8 tabs 01/24/20 acetaminophen 500 mg tablet 1,000 mg (2 x 500 mg) PO TID #90 12/31/22 tabs tolnaftate 1 % topical cream 1 applic topical DAILY #30 grams 01/12/23 (Antifungal (tolnaftate)) Allergies Allergy/AdvReac Type Severity Reaction Status Date / Time No Known Allergies Allergy Verified 01/12/23 09:32 General Stated Complaint: SOB FRANCINE: 3 Review of Systems All systems reviewed & are unremarkable except as noted in HPI and below Exam Narrative Exam Narrative: GENERAL APPEARANCE: Well-nourished, non-toxic, awake and alert, atraumatic, no acute distress. SKIN: Warm, pink, dry, intact, without rashes/lesions/ulcerations. HEAD: Normocephalic, atraumatic, normal hair distribution for gender/age. EYES: Pupils PERRLA, EOMs intact without nystagmus, normal conjunctiva, no exudates on lids/lashes. ENT: Nares patent, no circumoral cyanosis, no facial swelling NECK: Supple, trachea midline, painless cervical ROM. LUNGS/CHEST: Lungs CTA bilaterally- no overt rales at bases, non-labored respirations, normal A/P diameter, symmetrical expansion, no chest wall deformity, mild pleuritic L sided CP HEART (CV/PV): Irregular rate and rhythm without murmur, 3+ peripheral edema, L>R no JVD. chronic varicosities of bilateral LEs, Alex's + bilat LEs, + medial thigh tenderness bilat LEs ABDOMEN: Soft, non-distended, no guarding, no tenderness. MSK: Normal ROM, no swelling/deformity to bilateral UEs or LEs, moving all extremities without weakness, no cyanosis, spine midline without tenderness, normal curvature. NEURO: Mental Status AAOx4 - alert to person, place, time, events No facial droop, no forehead involvement. Motor: No focal weakness - strength 5/5 in bilateral UEs and LEs, proximal and distal, symmetric. Sensory: sensation intact to light touch globally. Gait normal: patient ambulated without ataxia into ED room. PSYCH: euthymic, cooperative, pleasant, appropriate speech Course Vital Signs Vital signs: Vital Signs Temperature 36.6 C 11/18/23 14:56 Pulse 112 H 11/18/23 14:56 Respiratory Rate 18 11/18/23 14:56 Blood Pressure 141/93 H 11/18/23 14:56 Pulse Oximetry 97 11/18/23 14:56 Temperature 36.6 C 11/18/23 14:56 Pulse 103 H 11/18/23 17:16 Pulse 100 H 11/18/23 17:20 Respiratory Rate 18 11/18/23 17:20 Respiratory Effort Normal 11/18/23 15:46 Respiratory Depth Normal 11/18/23 15:46 Respiratory Pattern Normal 11/18/23 15:46 Blood Pressure 125/74 11/18/23 17:16 Blood Pressure Mean 90 11/18/23 17:16 Pulse Oximetry 97 11/18/23 15:46 Pain Level 2 11/18/23 15:46 Lab/Test Results Lab/Test Results: Laboratory Tests Range/Units 11/18/23 15:45 WBC (4.4-10.8) 10^3/uL 8.69 RBC (3.93-5.22) 10^6/uL 3.16 L Hgb (11.2-15.7) g/dL 10.7 L Hct (36.0-46.0) % 33.0 L MCV (80-95) fL 104 H MCH (27.0-33.0) pg 33.9 H MCHC (32.0-36.0) % 32.4 RDW (11.7-14.6) % 14.6 Plt Count (130-400) 10^3/uL 134 MPV (8.0-11.0) fL 11.2 H Immature Gran % % 0.3 Neutrophils % % 74.8 Lymphocytes % % 13.2 Monocytes % % 5.9 Eosinophils % % 5.2 Basophils % % 0.6 Nucleated RBC % (0.0-0.3) % 0.0 Absolute Neutrophils (1.2-6.7) 10^3/uL 6.50 Absolute Lymphocytes (1.2-3.4) 10^3/uL 1.15 L Absolute Monocytes (0.1-0.8) 10^3/uL 0.51 Absolute Eosinophils (0.0-0.7) 10^3/uL 0.45 Absolute Basophils (0.0-0.2) 10^3/uL 0.05 PT (9.1-11.1) sec 10.5 INR (0.9-1.1) 1.0 APTT (23.6-32.8) sec 19.6 L VBG Lactate (0.6-1.4) mmol/L 1.0 Sodium (136-145) mmol/L 144 Potassium (3.5-5.1) mmol/L 3.6 Chloride (98-107) mmol/L 106 Carbon Dioxide (21.0-32.0) mmol/L 29.6 Anion Gap (3-11) mmol/L 8.4 BUN (7-18) mg/dL 15 Creatinine (0.55-1.02) mg/dL 1.0 Est GFR (CKD-EPI 2020) (mL/min/1.73m2) 57.66 Glucose (74-106) mg/dL 100 Calcium (8.5-10.1) mg/dL 9.0 Magnesium (1.8-2.4) mg/dL 1.9 Total Bilirubin (0.2-1.0) mg/dL 0.92 AST (15-37) U/L 15 ALT (14-59) U/L 16 Alkaline Phosphatase (46-116) U/L 68 Troponin I (< or =60) ng/L < 50 NT-Pro-B Natriuret Pep (<300) pg/mL 3052 H Total Protein (6.4-8.2) g/dL 6.8 Albumin (3.4-5.0) g/dL 3.8 Lipase (16-77) U/L 24 TSH (0.36-3.74) uIU/mL 0.49 Medical Decision Making This dictation utilizes [id number] dictation software and may contain unedited grammatical errors. 78 year-old female presents to ED today by POV/ambulating with a chief complaint of increasing bilateral leg swelling, some shortness of breath, mild ache in L ribs with recent TAVR & pacemaker placement d/c'd from [facility] on 10/20/23 with onset ongoing for days. Patient denies overt chest pain. Quality described as increasing leg edema, L>R, mild rib ache, pleuritic, and some SOB worse at night, no radiation to dizziness, diaphoresis, syncope, respiratory distress, coughing, severe headache, visual changes, slurred speech. Severity is described as mild. Palliating factors include nothing specific attempted- patient does take Lasix 40mg PO QD. Provoking factors include recent procedure. Events leading up to the incident/Associated Symptoms: Patient has history of paroxysmal atrial fibrillation- was not in atrial fibrillation on discharge from [facility]. Had a 1 week post-op TTE which showed mild pericardial effusion- was not restarted on rivaroxaban due to this, next ECHO was scheduled for 12/02. Followed by Dr. Burkett at [facility] Cardiology. Patients' medical history: Dyspnea on exertion, bicuspid aortic valve, recent TAVR and pacemaker placement, osteopenia, atrial fibrillation, venous stasis, aortic stenosis, chronic venous insufficiency, peripheral neuropathy, hypertension, hyperlipidemia. Family and social history: Lives in the area, her daughter is in the area as well, healthy diet mild exercise. Pertinent exam findings / vital signs include 3+ pitting edema to the lower extremities, diffuse varicosities, left greater than white leg swelling, mild calf pain with positive Homans, medial thigh tenderness, irregularly irregular heart rate and rhythm, no overt Rales at bases of lungs, no hypoxia, nontoxic, neuro intact. Differential / pathologies of concern include DVT, PE, ACS, CHF, atrial fibrillation, pericarditis, cardiac tamponade. Diagnostic studies of: -CBC, CMP, PT/PTT, troponin, BNP, lipase, TSH, UA, Lactate, magnesium, EKG, US Bilat LE DVT Studies, CTA Chest PE Study. -CBC showed no leukocytosis, baseline anemia -Coagulation studies showed mildly low PTT -No major electrolyte abnormalities -Magnesium within normal limits -Initial troponin negative, accepted for admission with repeat pending -BNP 3052 which is significantly higher than prior values months ago -Lipase negative -TSH within normal limits -Urine benign -Lactate negative -EKG shows atrial fibrillation 112 bpm, no electrical alternans, no diffuse low voltage or ST depressions, some T wave inversions in V1 V2, no ST elevations, right bundle branch block present -US DVT studies of bilateral lower extremities negative for DVT -CTA chest PE study is negative for pulmonary embolism and shows mild posterior pericardial effusion I do see a pericardial effusion near to the right ventricle, there is mild pulmonary edema and some anteroseptal wall thickening consistent with possible CHF Interventions of: -40mg IV Lasix, home-dose 6.25mg carvedilol, Consulted with [facility] Service Advisor Dr. Burkett- discussed patients current atrial fibrillation with not optimal rate control, but no RVR- some CHF evidence, and likely stable pericardial effusion, recommends in-patient admission- repeat ECHO, is happy to consult and is on hospital service tomorrow. Recommends upping Lasix, +/- carvedilol adjustment, re-consult after ECHO results. Consulted with Hospitalist Dr. Perdomo who accepts for admission, tele-stepdown ED Course/Assessment/Plan: 78-year-old female presents with increasing leg edema, chronic varicosities, recent TAVR and pacemaker placement with a history of paroxysmal A-fib, she presents in persistent A-fib with suboptimal rate control anywhere from 05 15-05 28 with occasional drops to below 100. She has not been restarted on rivaroxaban due to a chronic mild pericardial effusion seen on postoperative echocardiogram as well as tonight's CTA of the chest PE study-I did discuss this result with the patient's [facility] manager food safety Dr. Burkett, I discussed her increasing edema in the setting of atrial fibrillation likely need for admission for repeat echo as her next outpatient had been scheduled for December 02. She has been hemodynamically stable in the department this evening with no respiratory distress and no hypoxia, there was no evidence of clot in either lower extremity or in the lungs, there was some mild pulmonary edema that we are giving increase Lasix dose likely 40 mg twice daily 4, first dose started in ED, repeat troponin is pending at time of admission. Dr. Burkett did question whether she is developing some restrictive pericarditis but she has no low voltage or diffuse ST changes on EKG Findings not consistent with cardiac tamponade, hypoxic respiratory failure in the setting of CHF, acute coronary syndrome, DVT or PE. Disposition of congestive heart failure, atrial fibrillation, pericardial effusion. Patient verbalized understanding of the plan and return to ED criteria and engaged in shared decision making. Medical Records Medical records reviewed: Yes I reviewed the patient's medical records. Imaging Data Radiologic Study: Attestation: I personally reviewed and interpreted this imaging study as follows: Imaging: CT Scan Radiologist's impression: EXAM: CT CHEST PE CTA CLINICAL HISTORY: tachycardia, atrial fib on thinners. TECHNIQUE: Imaging Protocol: Axial CT angiography was performed with multi-slice acquisition and multi-planar reconstructions as well as axial, coronal and sagittal MIP reconstructions. CONTRAST MATERIAL: Intravenous: Omnipaque 350 Contrast volume:100 ml COMPARISON: CT CT CHEST/ABD WO from 03/10/2022 FINDINGS: Pulmonary Arteries: No evidence of filling defect to suggest pulmonary emboli. Tracheobronchial tree: No mucous plugging. No significant peribronchial thickening. No bronchiectasis. Mediastinum and Cris: No dominant adenopathy or fluid collection. Pulmonary parenchyma: The mild interlobular septal thickening greater posteriorly which could indicate mild CHF. No consolidation or dominant measurable mass. Pleura: Small left pleural effusion. Heart: The heart is moderately dilated. Posterior pericardial effusion. Minimal pericardial thickening anteriorly. Mild coronary artery calcifications are seen. Status post TAVR. Pacemaker leads. Aorta: Thoracic aorta non-dilated. No dissection. Upper abdomen: Suture material at GE junction. Bones: Scoliosis. Stable mild compression fractures. Tubes, Catheters, and Lines: None Soft tissues: Unremarkable. IMPRESSION: No evidence of pulmonary embolism. Cardiomegaly. Small pericardial effusion seen posteriorly. Small left pleural effusion. Mild pulmonary edema. Radiologic Study #2: Attestation: I personally reviewed and interpreted this imaging study as follows: Imaging: Ultrasound Radiologist's impression: EXAM: US EXTREMITY VENOUS BI CLINICAL HISTORY: bilat LE DVT study- leg edema, varicosities. TECHNIQUE: Bilateral lower extremity venous ultrasound performed using grayscale, color-flow, and spectral Doppler analysis. COMPARISON: No exams were available for comparison FINDINGS: The bilateral common femoral, femoral and popliteal veins demonstrate normal compressibility, augmentation, and color Doppler. The posterior tibial veins are patent. IMPRESSION: Right: Negative for DVT Left: Negative for DVT Lab Data Lab results reviewed: Yes I reviewed the patient's lab results. Labs: Laboratory Tests Range/Units 11/18/23 11/18/23 15:45 18:33 WBC (4.4-10.8) 10^3/uL 8.69 RBC (3.93-5.22) 10^6/uL 3.16 L Hgb (11.2-15.7) g/dL 10.7 L Hct (36.0-46.0) % 33.0 L MCV (80-95) fL 104 H MCH (27.0-33.0) pg 33.9 H MCHC (32.0-36.0) % 32.4 RDW (11.7-14.6) % 14.6 Plt Count (130-400) 10^3/uL 134 MPV (8.0-11.0) fL 11.2 H Immature Gran % % 0.3 Neutrophils % % 74.8 Lymphocytes % % 13.2 Monocytes % % 5.9 Eosinophils % % 5.2 Basophils % % 0.6 Nucleated RBC % (0.0-0.3) % 0.0 Absolute Neutrophils (1.2-6.7) 10^3/uL 6.50 Absolute Lymphocytes (1.2-3.4) 10^3/uL 1.15 L Absolute Monocytes (0.1-0.8) 10^3/uL 0.51 Absolute Eosinophils (0.0-0.7) 10^3/uL 0.45 Absolute Basophils (0.0-0.2) 10^3/uL 0.05 PT (9.1-11.1) sec 10.5 INR (0.9-1.1) 1.0 APTT (23.6-32.8) sec 19.6 L VBG Lactate (0.6-1.4) mmol/L 1.0 Sodium (136-145) mmol/L 144 Potassium (3.5-5.1) mmol/L 3.6 Chloride (98-107) mmol/L 106 Carbon Dioxide (21.0-32.0) mmol/L 29.6 Anion Gap (3-11) mmol/L 8.4 BUN (7-18) mg/dL 15 Creatinine (0.55-1.02) mg/dL 1.0 Est GFR (CKD-EPI 2020) (mL/min/1.73m2) 57.66 Glucose (74-106) mg/dL 100 Calcium (8.5-10.1) mg/dL 9.0 Magnesium (1.8-2.4) mg/dL 1.9 Total Bilirubin (0.2-1.0) mg/dL 0.92 AST (15-37) U/L 15 ALT (14-59) U/L 16 Alkaline Phosphatase (46-116) U/L 68 Troponin I (< or =60) ng/L < 50 NT-Pro-B Natriuret Pep (<300) pg/mL 3052 H Total Protein (6.4-8.2) g/dL 6.8 Albumin (3.4-5.0) g/dL 3.8 Lipase (16-77) U/L 24 TSH (0.36-3.74) uIU/mL 0.49 Urine Color (Yellow) Yellow Urine Clarity (Clear) Clear Urine pH (5-8) 6.5 Ur Specific [place] (1.005-1.025) 1.015 Urine Protein (Neg-Trace) mg/dL Negative Urine Ketones (Negative) mg/dL Negative Urine Blood (Negative) Negative Urine Nitrite (Negative) Negative Urine Bilirubin (Negative) Negative Urine Urobilinogen (Up to 0.2) mg/dL 0.2 Ur Leukocyte Esterase (Negative) Small H Urine Glucose (Negative) mg/dL Negative Quality:SDOH Health Related Social Needs: No Data to Display PFSH All Active Problems (Updated 11/18/23 @ 21:54 by AMI Payton) Pericardial effusion (Acute) Atrial fibrillation (Chronic) Congestive heart failure (Chronic) Spinal stenosis, lumbar (Acute) Osteopenia (Acute) GERD (gastroesophageal reflux disease) (Chronic) Chronic pain of left lower extremity (Acute) Arthritis (Acute) Afib (Chronic) s/p lpulm vein isolation 05/2018, Xarelto Leg cramps (Acute) Venous stasis (Acute) Aortic stenosis (Chronic) congenital bi-cuspid valve Per pt. states she see's mingo burkett, at [facility] Card[facility] Anemia, iron deficiency (Acute) CKD (chronic kidney disease) stage 3, GFR 30-59 ml/min (Acute) Anticoagulation adequate (Acute) Xarelto RACHAEL (obstructive sleep apnea) (Chronic) Chronic venous insufficiency (Acute) HTN (hypertension) (Chronic) Hypothyroidism (Chronic) Hyperlipidemia (Acute) Peripheral neuropathy (Acute) Leg edema (Acute) Other specified polyneuropathies (Acute) Nail dystrophy (Acute) Toe pain, left (Acute) Toe pain, right (Acute) Tinea unguium (Acute) Other specified peripheral vascular diseases (Acute) Difficulty in walking, not elsewhere classified (Acute) Medical History Trigger finger, right little finger Injection: 12/18/2022 History of blood transfusion Diarrhea Foot pain, right Skin fissure Sciatica of left side Breast cancer in female Hiatal hernia COVID-19 Trigger finger, left index finger Depo-Medrol injection: 08/13/2020 Fatigue COLÓN (dyspnea on exertion) Cervical polyp Back pain Gout of ankle Trigger finger, right ring finger Carpal tunnel syndrome Acute back pain with sciatica Chondrocalcinosis of left knee Injected: 01/03/2020, 09/09/2021 PUD (peptic ulcer disease) Breast cancer left breast Surgical History Left carpal tunnel syndrome S/P L ECTR: 12/31/2022 Hx of inguinal hernia repair H/O lumbosacral spine surgery Lumbar Foraminotomy L4 History of carpal tunnel surgery of right wrist (01/24/20) History of ankle surgery right w/ screws History of laminectomy Trigger finger, left little finger s/p release 05/10/2019 Colonoscopy - MAC (03/17/17) Cholecystectomy Family History Grandmother Colon cancer Mother CAD (coronary artery disease) Father Stroke Sister Pneumonia Brother Drug overdose Maternal Grandfather Colon cancer Social History Smoking/Tobacco Use Status: Never Smoking risk assessment performed?: Yes Alcohol Intake: current Alcohol Intake frequency: a few times a week Alcohol type: beer, wine and hard liquor Drug use: Never Substance use type: does not use Household members: none Housing: house Number of Children: 2 current occupation: Retired Current gender identity: female What type of physical activity do you participate in: independent ambulation Do you feel safe at home: Yes Do you feel safe in your relationship?: Yes
[2023-11-18 19:17] LABS: Bilirubin Negative (Negative); Blood Negative (Negative); Clarity Clear (Clear); Glucose Negative (Negative); Ketones Negative (Negative); Leukocyte Esterase Small (Negative); Nitrite Negative (Negative); Specific Gravity 1.015 (1.005-1.025); Urobilinogen 0.2 mg/dL (Up to 0.2); pH 6.5 (5-8)
[2023-11-18 20:26] LABS: Bacteria Few HPF (Negative); Crystals Negative HPF (Negative); Epithelial Cells Many HPF (Negative); Mucus Trace (Negative); RBC Negative HPF (0-2)
[2023-11-18 20:27] LABS: C & S Indicated? No
--- NOTE | 2023-11-18 21:25 | W.PM.HP.N ---
Date of service: 11/18/23 Time of Service: 21:25 Assessment and Plan Assessment and plan (1) Pericardial effusion: Status: Acute Assessment and plan: presumed d/t pacemaker complication; check repeat TTE but may need ASHLEY d/t posterior location of prior effusion; hold any AC ( I have put her on SCD instead of chemoprophylaxis for DVT prevention); follow up phone call tomorrow w/ Dr Burkett [place] [facility] to discuss echo results and plans for further follow up, i.e. ASHLEY as well as managment of afib and CHF. (2) Atrial fibrillation: Status: Chronic Assessment and plan: adjust carvedilol dosing; goal is for HR <90 at rest and <120 w/ activity; may need to switch to lopressor if carvedilol drops her BP too much. Also may need to reduce lisinopril dose to allow enough BP for her BB to control her HR. hold further anticoagulation in light of her pericardial effusion. Qualifiers: Atrial fibrillation type: longstanding persistent Qualified Code(s): I48.11 - Longstanding persistent atrial fibrillation (3) Congestive heart failure: Status: Chronic Assessment and plan: Unclear as to whether this is HFPEF or HFREF; last echo on file at [facility] was on 03/18/2017 when her EF was 50% w/ no RWMA, at that time she had a bicuspid AV w/ mild to moderate and mild to mod. MR w/ w/ mod. LAE and mod to severe CONY w/ mild to mod. TR. We will get follow up TTE tomorrow; continue IV lasix overnight, continue spironolactone, monitor electrolytes, BUN and creatinine, U.O. and clinical exam. Troponin negative x 2 and hx of clean cardiac cath so ACS has been effectively rule out as cause of her CHF. Suspect d/t combo of longstanding valvular heart disease and chronic afib. Qualifiers: Heart failure type: unspecified Heart failure chronicity: acute on chronic Qualified Code(s): I50.9 - Heart failure, unspecified (4) S/P TAVR (transcatheter aortic valve replacement): Start date: 10/20/23 Status: Acute (5) Status post cardiac pacemaker procedure: Start date: 10/20/23 Status: Acute (6) Macrocytic anemia: Status: Acute Assessment and plan: check iron levels, B12, folate, monitor. History of Present Illness History of Present Illness Chief Complaint: increasing leg edema and dyspnea Narrative: 78 yr female w/ hx of PAF, recurrent despite prior ablation, who underwent TAVR for and pacemaker both performed at [facility] in [place], [place] 10/19. She is followed there by commercial credit reviewer, Dr. Harleen Burkett. Patient had complications of her pacemaker in that she developed pericardial effusion postoperatively. Her rivaroxaban has been on hold since her procedure. She was discharged from [facility] on 10/27 and had repeat echocardiogram done the following Thursday on 10/[address] [facility]. Patient was scheduled for repeat echo to be done in early December. Since her discharge she has had progressive exertional dyspnea but no chest pains or pressure or palpitations. She has had increasing bilateral leg edema. 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 She reportedly had prior cardiac cath w/ no hemodynamically significant CAD; she was told her coronaries are clean per the patient's report. On arrival to the ED HR have been in the 110's to 120, BP has been stable and she has not been hypoxic. Evaluation in the ED included EKG, a normal troponin levels, elevated BNP 3052, normal electrolytes, normal BUN 15, creatinine 1.0, CBC demonstrated macrocytic anemia Hb 10.7 gm, MCV 104, MCH 33.9 , RDW 14, normal platelets 134,000 and normal WBC 8690. D dimer was elevated @ 2110, prothrombin and aPTT were normal. EKG demonstrated afib w/ RBBB and LAFB rate of 112 bpm. Venous duplex of legs was negative for DVT and CTA chest did not show P.E. but demonstrated cardiomegaly, small posterior pericardial effusion, and small left pleural effusion as well as mild pulmonary edema. Patient was given lasix 40 mg IVP and the ED provider, Aníbal MUELLER, called [facility] and spoke w/ the patient's commercial credit reviewer, Dr. Harleen Burkett, who advised admission for diuresis, afib rate control and follow up echo to evaluate her pericardial effusion. Review of Systems All systems reviewed & are unremarkable except as noted in HPI and below PFSH All Active Problems (Updated 11/19/23 @ 01:02 by Jim Perdomo MD) Macrocytic anemia (Acute) Status post cardiac pacemaker procedure (Acute) S/P TAVR (transcatheter aortic valve replacement) (Acute) Pericardial effusion (Acute) Atrial fibrillation (Chronic) Congestive heart failure (Chronic) Spinal stenosis, lumbar (Acute) Osteopenia (Acute) GERD (gastroesophageal reflux disease) (Chronic) Chronic pain of left lower extremity (Acute) Arthritis (Acute) Afib (Chronic) s/p lpulm vein isolation 05/2018, Xarelto Leg cramps (Acute) Venous stasis (Acute) Aortic stenosis (Chronic) congenital bi-cuspid valve Per pt. states she see's harleen burkett, at [facility] Anemia, iron deficiency (Acute) CKD (chronic kidney disease) stage 3, GFR 30-59 ml/min (Acute) Anticoagulation adequate (Acute) Xarelto RACHAEL (obstructive sleep apnea) (Chronic) Chronic venous insufficiency (Acute) HTN (hypertension) (Chronic) Hypothyroidism (Chronic) Hyperlipidemia (Acute) Peripheral neuropathy (Acute) Leg edema (Acute) Other specified polyneuropathies (Acute) Nail dystrophy (Acute) Toe pain, left (Acute) Toe pain, right (Acute) Tinea unguium (Acute) Other specified peripheral vascular diseases (Acute) Difficulty in walking, not elsewhere classified (Acute) Medical History Trigger finger, right little finger Injection: 12/18/2022 History of blood transfusion Diarrhea Foot pain, right Skin fissure Sciatica of left side Breast cancer in female Hiatal hernia COVID-19 Trigger finger, left index finger Depo-Medrol injection: 08/13/2020 Fatigue COLÓN (dyspnea on exertion) Cervical polyp Back pain Gout of ankle Trigger finger, right ring finger Carpal tunnel syndrome Acute back pain with sciatica Chondrocalcinosis of left knee Injected: 01/03/2020, 09/09/2021 PUD (peptic ulcer disease) Breast cancer left breast Surgical History Left carpal tunnel syndrome S/P L ECTR: 12/31/2022 Hx of inguinal hernia repair H/O lumbosacral spine surgery Lumbar Foraminotomy L4 History of carpal tunnel surgery of right wrist (01/24/20) History of ankle surgery right w/ screws History of laminectomy Trigger finger, left little finger s/p release 05/10/2019 Colonoscopy - MAC (03/17/17) Cholecystectomy Family History Grandmother Colon cancer Mother CAD (coronary artery disease) Father Stroke Sister Pneumonia Brother Drug overdose Maternal Grandfather Colon cancer Social History Smoking/Tobacco Use Status: Never Smoking risk assessment performed?: Yes Alcohol Intake: current Alcohol Intake frequency: a few times a week Alcohol type: beer, wine and hard liquor Drug use: Never Substance use type: does not use Household members: none Housing: house Number of Children: 2 current occupation: Retired Current gender identity: female What type of physical activity do you participate in: independent ambulation Do you feel safe at home: Yes Do you feel safe in your relationship?: Yes Meds Allergies and Home Medications Allergies Allergy/AdvReac Type Severity Reaction Status Date / Time No Known Allergies Allergy Verified 01/12/23 09:32 Home Medications ?Medication ?Instructions ?Recorded ?Confirmed ?Type atorvastatin 40 mg tablet (Lipitor) 40 mg PO QPM 06/13/13 11/18/23 History allopurinol 100 mg tablet 200 mg PO DAILY 04/13/19 11/18/23 History cholecalciferol (vitamin D3) 50 2,000 unit PO DAILY 04/13/19 11/18/23 History mcg (2,000 unit) tablet levothyroxine 125 mcg tablet 100 mcg PO DAILY 04/13/19 11/18/23 History tramadol 50 mg tablet 50 mg PO Q6H PRN #8 tabs 01/24/20 11/18/23 Rx ascorbic acid (vitamin C) 500 mg 500 mg PO DAILY 04/19/20 11/18/23 History tablet (Vitamin C) calcium carbonate 600 mg PO DAILY 04/19/20 11/18/23 History ferrous sulfate 325 mg (65 mg 325 mg PO DAILY 04/19/20 11/18/23 History iron) tablet magnesium 250 mg tablet 250 mg PO BID 04/19/20 11/18/23 History carvedilol 6.25 mg tablet 6.25 mg PO BID 05/28/20 11/18/23 History spironolactone 25 mg tablet 25 mg PO DAILY 05/28/20 11/18/23 History lisinopril 10 mg tablet 10 mg PO DAILY 08/05/22 11/18/23 History rivaroxaban 20 mg tablet (Xarelto) 20 mg PO DAILY 08/05/22 11/18/23 History furosemide 20 mg tablet 40 mg PO DAILY 09/25/22 11/18/23 History gabapentin 300 mg capsule 300 mg PO BID 09/25/22 11/18/23 History acetaminophen 500 mg tablet 1,000 mg (2 x 500 mg) PO TID #90 12/31/22 11/18/23 Rx tabs cyanocobalamin (vitamin B-12) 100 1,000 mcg PO DIRECTED 01/08/23 11/18/23 History mcg tablet (Vitamin B-12) tolnaftate 1 % topical cream 1 applic topical DAILY #30 grams 01/12/23 11/18/23 Rx (Antifungal (tolnaftate)) Exam Narrative Exam Narrative: Elderly female who is alert and oriented, no acute distress, does not appear to be tachypneic HEENT: normal No JVD nor HJR, pulses irregular but no carotid bruits Lungs: some bibasilar rales; no rhonchi or wheezing Heart:irregularly irregular and slightly tachycardic, difficult to appreciate murmurs over noise of ED department but I did not pick remover any diastolic murmur Abdomen: soft, nontender, no organomegaly Extremities; bilateral leg edema 2+ pitting w/ varicose veins, normal pedal pulses Neuro: grossly normal CN and no focal motor or sensory deficits Results Labs 11/18/23 15:45 11/18/23 15:45 Labs: Laboratory Results - last 24 hr 11/18/23 11/18/23 15:45 18:33 WBC 8.69 RBC 3.16 L Hgb 10.7 L Hct 33.0 L MCV 104 H MCH 33.9 H MCHC 32.4 RDW 14.6 Plt Count 134 MPV 11.2 H Immature Gran % 0.3 Neutrophils % 74.8 Lymphocytes % 13.2 Monocytes % 5.9 Eosinophils % 5.2 Basophils % 0.6 Nucleated RBC % 0.0 Absolute Neutrophils 6.50 Absolute Lymphocytes 1.15 L Absolute Monocytes 0.51 Absolute Eosinophils 0.45 Absolute Basophils 0.05 PT 10.5 INR 1.0 APTT 19.6 L VBG Lactate 1.0 Sodium 144 Potassium 3.6 Chloride 106 Carbon Dioxide 29.6 Anion Gap 8.4 BUN 15 Creatinine 1.0 Est GFR (CKD-EPI 2020) 57.66 Glucose 100 Calcium 9.0 Magnesium 1.9 Total Bilirubin 0.92 AST 15 ALT 16 Alkaline Phosphatase 68 Troponin I < 50 NT-Pro-B Natriuret Pep 3052 H Total Protein 6.8 Albumin 3.8 Lipase 24 TSH 0.49 Urine Color Yellow Urine Clarity Clear Urine pH 6.5 Ur Specific [place] 1.015 Urine Protein Negative Urine Ketones Negative Urine Blood Negative Urine Nitrite Negative Urine Bilirubin Negative Urine Urobilinogen 0.2 Ur Leukocyte Esterase Small H Urine RBC Negative Urine WBC 3-5 Ur Epithelial Cells Many Urine Crystals Negative Urine Bacteria Few Urine Mucus Trace Ur Culture Indicated? No Urine Glucose Negative Last Vital Signs Temp 36.6 C 11/18/23 14:56 Pulse 97 H 11/18/23 20:46 Resp 25 H 11/18/23 20:50 BP 137/81 11/18/23 20:46 Pulse Ox 95 11/18/23 20:50 Time Spent Time spent with Patient: 55-74 minutes Time was spent: preparing to see the patient(eg.review tests), obtaining and/or reviewing separately otained hiistory, ordering medications,tests, procedures, referring, communicating with other health acute care physical therapist, indepentently interpreting results, counseling the patient and care coordination
[2023-11-18] MEDS: Furosemide 40 MG/4 ML VIAL IVP (21:29)
--- NOTE | 2023-11-18 21:57 | W.PC.ACHO ---
Registration Status: Primary Language: Preferred Language: ED Information & Data Chief Complaint SOB 11/18/23 18:38 Triage Note increased bilat leg swelling 11/18/23 14:56 more in left leg, SOB, ache in left ribs HX Cardiac procedures this year has not taken Rivaroxaban since october Medical / Surgical History (Last Reviewed 11/18/23 @ 21:25 by Jim Perdomo MD) Trigger finger, right little finger History of blood transfusion Diarrhea Foot pain, right Skin fissure Sciatica of left side Breast cancer in female Hiatal hernia COVID-19 Trigger finger, left index finger Fatigue COLÓN (dyspnea on exertion) Cervical polyp Back pain Gout of ankle Trigger finger, right ring finger Carpal tunnel syndrome Acute back pain with sciatica Chondrocalcinosis of left knee PUD (peptic ulcer disease) Breast cancer (Last Reviewed 11/18/23 @ 21:25 by Jim Perdomo MD) Left carpal tunnel syndrome Hx of inguinal hernia repair H/O lumbosacral spine surgery History of carpal tunnel surgery of right wrist (01/24/20) History of ankle surgery History of laminectomy Trigger finger, left little finger Colonoscopy - MAC (03/17/17) Cholecystectomy Most Recent Vital Signs Temperature 36.6 C 11/18/23 14:56 Pulse 97 H 11/18/23 20:46 Pulse 97 H 11/18/23 20:50 Respiratory Rate 25 H 11/18/23 20:50 Respiratory Effort Normal 11/18/23 15:46 Respiratory Depth Normal 11/18/23 15:46 Respiratory Pattern Normal 11/18/23 15:46 Blood Pressure 137/81 11/18/23 20:46 Blood Pressure Mean 101 11/18/23 20:46 Pulse Oximetry 95 11/18/23 20:50 Pain Level 2 11/18/23 15:46 Allergies No Known Allergies Allergy (Verified 01/12/23 09:32) Active Medications Generic Name Dose Route Start Last Admin Trade Name Freq PRN Reason Stop Dose Admin Iohexol 100 ml 11/18/23 18:30 11/18/23 18:30 Omnipaque 350 Mg/Ml 100 Ml Btl IJ 12/18/23 23:59 100 ml DIRECTED RACQUEL Administration Sodium Chloride 50 ml 11/18/23 18:30 11/18/23 18:29 Normal Saline - Diluent 50 Ml Vial IJ 50 ml .FOR DI USE RACQUEL Administration IV IV Catheter Type [Right Saline Lock Antecubital] IV Catheter Gauge [Right 18 Antecubital] Diagnostics 11/18/23 11/18/23 11/18/23 Range/Units 21:30 18:33 15:45 WBC 8.69 (4.4-10.8) 10^3/uL RBC 3.16 L (3.93-5.22) 10^6/uL Hgb 10.7 L (11.2-15.7) g/dL Hct 33.0 L (36.0-46.0) % MCV 104 H (80-95) fL MCH 33.9 H (27.0-33.0) pg MCHC 32.4 (32.0-36.0) % RDW 14.6 (11.7-14.6) % Plt Count 134 (130-400) 10^3/uL MPV 11.2 H (8.0-11.0) fL Immature Gran % 0.3 % Neutrophils % 74.8 % Lymphocytes % 13.2 % Monocytes % 5.9 % Eosinophils % 5.2 % Basophils % 0.6 % Nucleated RBC % 0.0 (0.0-0.3) % Absolute Neutrophils 6.50 (1.2-6.7) 10^3/uL Absolute Lymphocytes 1.15 L (1.2-3.4) 10^3/uL Absolute Monocytes 0.51 (0.1-0.8) 10^3/uL Absolute Eosinophils 0.45 (0.0-0.7) 10^3/uL Absolute Basophils 0.05 (0.0-0.2) 10^3/uL PT 10.5 (9.1-11.1) sec INR 1.0 (0.9-1.1) APTT 19.6 L (23.6-32.8) sec VBG Lactate 1.0 (0.6-1.4) mmol/L Sodium 144 (136-145) mmol/L Potassium 3.6 (3.5-5.1) mmol/L Chloride 106 (98-107) mmol/L Carbon Dioxide 29.6 (21.0-32.0) mmol/L Anion Gap 8.4 (3-11) mmol/L BUN 15 (7-18) mg/dL Creatinine 1.0 (0.55-1.02) mg/dL Est GFR (CKD-EPI 2020) 57.66 (mL/min/1.73m2) Glucose 100 (74-106) mg/dL Calcium 9.0 (8.5-10.1) mg/dL Magnesium 1.9 (1.8-2.4) mg/dL Total Bilirubin 0.92 (0.2-1.0) mg/dL AST 15 (15-37) U/L ALT 16 (14-59) U/L Alkaline Phosphatase 68 (46-116) U/L Troponin I Pending < 50 (< or =60) ng/L NT-Pro-B Natriuret Pep 3052 H (<300) pg/mL Total Protein 6.8 (6.4-8.2) g/dL Albumin 3.8 (3.4-5.0) g/dL Lipase 24 (16-77) U/L TSH 0.49 (0.36-3.74) uIU/mL Urine Color Yellow (Yellow) Urine Clarity Clear (Clear) Urine pH 6.5 (5-8) Ur Specific [place] 1.015 (1.005-1.025) Urine Protein Negative (Neg-Trace) mg/dL Urine Ketones Negative (Negative) mg/dL Urine Blood Negative (Negative) Urine Nitrite Negative (Negative) Urine Bilirubin Negative (Negative) Urine Urobilinogen 0.2 (Up to 0.2) mg/dL Ur Leukocyte Esterase Small H (Negative) Urine RBC Negative (0-2) HPF Urine WBC 3-5 (0-5) HPF Ur Epithelial Cells Many (Negative) HPF Urine Crystals Negative (Negative) HPF Urine Bacteria Few (Negative) HPF Urine Mucus Trace (Negative) Ur Culture Indicated? No Urine Glucose Negative (Negative) mg/dL Intake and Output - 24 Hour Total 11/18/23 14:49 thru 11/18/23 14:56 Weight 83.915 kg Falls Risk Assessment History of Falls No History 11/18/23 15:46 Contributing Factors No Factors 11/18/23 15:46 Ambulatory Aids Independent 11/18/23 15:46 Tubes/Lines None 11/18/23 15:46 Gait Evaluation No gait disturbance 11/18/23 15:46 Cognition No cognitive impairment 11/18/23 15:46 Fall Total Score 0 11/18/23 15:46 Level of Risk Standard/Low Risk 11/18/23 15:46 v v v v v v v v v Sending and/or Receiving Nurses: Please use comment section below to note any information pertinent to the patient hand-off not included above. Information / Comments: Dx: bilateral leg swelling SOB headache, Left rib pain, TAVR, Not on xorelto, reports no blood clotts. small pleural effusion pulmonary edema. Pt in afib, with no pacer spikes, 96% room air 140's over 60's bp 18g IV 40mg Lasix, [facility]: Did not accept transfer A&O x3 Aliza Raymond RN Report received from:
--- OUTSIDE RECORDS SUMMARY | 2023-11-18 22:11 | XMS_ITS | Encounter Summary ---
Author Organization [facility] [place] [address] Care Team Providers Care Yarn Carrier Name Role Phone Ana Her MD Primary Care Provider [phone] Encounter Details Date Type Department Care Team (Latest Contact Info) Description 01/23/2022 12:15 PM EDT TH Visit (TeleHealth) [place] [address] Laura Will MD [facility] [place] [address] Paraesophageal hernia Social History Tobacco Use Types [...] her. She is followed by cardiology at [facility], and is on xarelto. 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 [address] [place] [address] PCP - General 07/29/13 documented as of this encounter
--- OUTSIDE RECORDS SUMMARY | 2023-11-18 22:11 | XMS_ITS | Continuity of Care Document ---
Author Organization [place] [facility]. [facility], [facility] [place] [address] Care Team Providers Care Buyer Renter Name Role Phone GABINODC [employer] Director [facility] Orthopedic Surgeon [facility] Sleep Medicine 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 The patient is a suitable candidate for the planned procedure. Their chronic medical problems are optimized Further preoperative evaluation is not needed. BMP and CBC are drawn today. The total time devoted to today's encounter, including both the omwm-nb-pvdn time with the patient and/or family/caregive r and zrq-qepr-gp-fac e time I personally spent is 30 minutes. Not available 10/14/2023 11:57:30 Plan of Treatment Reminders Order Date Submit Date Provider Last Modified By Organization Details Last Modified Time Details Appointments Acute 10 2023 01:17P Allan [place] Not available Not available Not available Follow Up 20 2023 08:40A M Ana Her Not available Not available Not available Lab CBC 2023 06 024 [facility] (Registration ), [address] [place] [address] [place], [address], 10/14/2023 15:11:07 BMP, serum or plasma [address] [facility] (Registration ), [address] , [place], [address], 10/14/2023 17:41:37 Referral None recorded. Procedures None recorded. Surgeries None recorded. Imaging electroca rdiogram 2023 024 [facility], [address] , [place], [address], 10/14/2023 11:56:21 Medication Orders tramadol 50 mg tablet 2023 024 [id number], [address], [place], [address], 10/14/2023 11:52:49 Patient TargetsNo targets recorded. Patient InstructionsNo instructions recorded. 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 Physical Therapist Referral for Left side sciatica back and leg pain, poor balance. Unable to swim regularly as the pool is closed. Would benefit from senior program. Referring Physician: Ana Her Family Medicine, Encounter Date: 07/20/2023 Tray Filler Referral for Dec reased hearing Increasing trouble hearing, has postponed evaluation due to perceived inability to afford hearing aides. 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 Her most recent July 2023 cardiology note summarizes her cardiac history of atrial fibrillation and bicuspid valve with . 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 She was to have follow up ECHO in [place]. Xarelto was to be on hold until then. Referring Physician: Ana Her Family Medicine, Encounter Date: 11/18/2023 Results Created Date Observation Date Name Description Value Unit Range Abnormal Flag LastModifiedBy Organization Detail LastModifiedTime 10/14/19 24 10/14/2023 elect rocashwin diogr am No observ ation record ed. [facility] [address], [place], [address], 10/14/2023 11:56:20 10/14/19 24 elect rocar diogr am No observ ation record ed. Not Available 10/14/2023 10:55:07 11/04/19 24 10/14/2023 rhyth m strip , EKG* No observ ation record ed. [email or web address] Not Available 11/06/2023 10:18:08 11/18/19 24 11/18/2023 US, mikle x, lower extre mity Patien t Name: Rema Olson Unit #: [id number] Loc: ER Sonal salazar [facility] er: Braydon Doyle Accoun t #: [id number] Status : REG ER Primar y Care Provid er: Ana Her M.D. Date of Exam: Sex: F Admiss ion Date: : 1945 Age: 78 Exam(s ) US EXTREM ITY VENOUS BI EXAM: US EXTREM ITY VENOUS BI CLINIC AL HISTOR Y: bilat LE DVT study- leg edema, varico sities . TECHNI QUE: Bilate ral lower extrem ity venous ultras ound perfor med using graysc alpesh, color- flow, and spectr al Dopple r analys is. COMPAR CARLOS ALBERTO: No exams were availa ble for compar carlos alberto FINDIN GS: The bilate ral common femora l, femora l and poplit eal veins demons trate normal compre ssibil ity, augmen tation , and color Dopple r. The paper mill manager ior tibial veins are patent . IMPRES NISHI: Right: Negati ve for DVT Left: Negati ve for DVT DATA REPOSI TORY: Ordere d By: Braydon Doyle CC: ------ ------ ------ ------ ------ ------ ------ ------ ------ ------ ------ ------ - Dictat ed By: Lázaro Titus 161 161 Transc ribed By: Haim Jesus 161 This is privil eged, confid ential inform ation intend ed only for the provid er named. Any use or distri bution by any person other than this provid er is strict ly prohib ited. If you receiv e this report in error, please notify us immedi ately at [phone] and return the origin al report to us at the addres s above. Thank- you. [facility] [address] [place] [place], [address] 11/18/2023 16:48:49 11/18/19 24 11/18/2023 CT imagi ng repor t Patien t Name: Rema Olson Unit #: [id number] Loc: ER Orderi ng Provid er: Braydon Doyle Accoun t #: [id number] Status : REG ER Primar y Care Provid er: Ana Her M.D. Date of Exam: Sex: F : 1945 Age: 78 Exam(s ) a CT:CT chest PE CTA Exam(s ) CT CHEST PE CTA EXAM: CT CHEST PE CTA CLINIC AL HISTOR Y: tachyc ardia, atrial fib on thinne rs. TECHNI QUE: Imagin g Protoc ol: Axial CT angiog fozia was perfor med with multi- slice acquis ition and multi- planar recons tructi ons as well as axial, gaytan l and sagitt al MIP recons tructi ons. CONTRA ST MATERI AL: Intrav enous: Omnipa que [address] volume :100 ml COMPAR CARLOS ALBERTO: CT CT CHEST/ ABD WO from 2021 FINDIN GS: Pulmon david Arteri es: No eviden ce of fillin g defect to sugges t pulmon david emboli . Trache obronc hial tree: No mucous pluggi ng. No signif icant peribr onchia l thicke jama. No bronch iectas is. Medias tinum and Cris: No domina nt adenop athy or fluid collec tion. Pulmon david parenc hyma: The mild interl obular septal thicke jama greate r paper mill manager iorly which could indica te mild CHF. No consol idatio n or domina nt measur able mass. Pleura : Small left pleura l effusi on. Heart: The heart is modera tely dilate d. Traffic Worker ior perica rdial effusi on. Minima l perica rdial thicke jama anteri chalino. Mild gaytan ry artery calcif icatio ns are seen. Status post TAVR. Pacema ker leads. Aorta: Thorac ic aorta non-di lated. No dissec tion. Upper abdome n: Suture materi al at GE juncti on. Bones: Scolio sis. Stable mild compre ssion fractu res. Tubes, Cathet ers, and Lines: None Soft tissue s: Unrema rkable . IMPRES NISHI: No eviden ce of pulmon david emboli sm. Cardio megaly . Small perica rdial effusi on seen paper mill manager iorly. Small left pleura l effusi on. Mild pulmon david edema. RADIAT ION DOSE DELIVE RED: Total DLP DATA REPOSI TORY: All CT scans at this facili ty are submit mar to the Nation al Radiol ogy Data Regist ry (NRDR) Dose Index Regist ry (DIR) with the [employer] an [employer] e [employer] Radiol ogy (ACR). RADIAT ION OPTIMI ZATION : All CT scans at this facili ty use at least one of these dose optimi zation techni ques: automa mar exposu re contro l; mA and/or kV adjust ment per patien t size (inclu perla target ed exams where dose is matche d to clinic al indica tion); or iterat oscar recons tructi on. 014: Total DLP = 0.00 mGy-cm Ordere d By: Braydon Doyle CC: ------ ------ ------ ------ ------ ------ ------ ------ ------ ------ ------ ------ ---- Dictat ed By: Lázaro Titus 1846 Transc ribed By: Haim Jesus 1846 This is privil eged, confid ential inform ation intend ed only for the provid er named. Any use or distri bution by any person other than this provid er is strict ly prohib ited. If you receiv e this report in error, please notify us immedi polo at [phone] and return the origin al report to us at the addres s above. Thank- you. [facility] [place] [address] , [place], [address] 11/18/2023 18:51:58 Result Notes None recorded. Problems Name Status Onset Date Resolution Date Notes Provider Name and Address Organization Details Recorded Time Hypothyroidis m Active 1959 EVIE shaw [facility] 4 10:29:59 Essential hypertension Active 1959 EVIE shaw [facility] 4 10:29:36 Hyperlipidemi a Active 1959 on statin MD [address], [place], [address] , [facility] 4 20:35:18 Spinal stenosis of lumbar region Active 2012 s/p lumbar foraminotomy L4 MD [address], [place], [address] , [facility] 4 20:36:41 Sleep apnea Active 2012 on CPAP MD [address], [place], [address] , [facility] 4 20:39:31 Gastroesophag eal reflux disease without esophagitis Completed 195908/12/2023 Removal Reason: resolved with surgical repair of HH MD [address], [place], [address] , [facility] 4 10:41:24 Family history of malignant neoplasm of digestive organ Active [address], [place], [address] , [facility] 4 20:37:03 Paresthesia Completed 201412/01/2014 11/27/2014 - Comments only - Ana Her MD - check B12 and folate Problem Code: R20.2; Problem Code Type: ICD-10; Not Available [facility] 3 05:53:48 Adult health examination Active [address], [place], [address] , [facility] 4 20:33:34 Pre-surgery evaluation Completed 201510/03/2015 09/03/2015 [...] Z01.818; Problem Code Type: ICD-10; Not Available [facility] 3 05:53:48 Localized edema Completed 201501/29/2016 12/13/2015 - Comments only - Ana Her MD - and some on left as well, will check BMP. 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 Vieyra for removal. Problem Code: L72.3; Problem Code Type: ICD-10; Not Available [facility] 3 05:53:49 Chronic ulcer of foot Completed 201601/16/2017 12/17/2016 - Comments only - Ana Her MD - Due to injury. This does appear to have some granulation tissue and to be healing. She is given a prescription for Keflex to take only if erythema seems to be extending. Problem Code: L97.509; Problem Code Type: ICD-10; Not Available [facility] 3 05:53:49 Diarrhea Completed 201602/10/2017 02/04/2017 - Comments only - Ana Her MD - Persistent over several months, we will collect stool for C. difficile, Giardia, culture, and lactoferrin Problem Code: R19.7; Problem Code Type: ICD-10; MD [address], [place], [address] , [facility] 4 21:03:03 Polyp of cervix Active 2016 EVIE shaw [place] - [facility] 4 10:32:21 Primary malignant neoplasm of female breast Active 2016 invasive mucinous intermediate grade, s/p partial mastectomy, on Anastrazole. 6 mm PT1NO E2P2 poistive, HER2 negative MD [address], [place], [address] , [facility] 4 20:38:49 Pain in left lower limb Active 2016 EVIE shaw, [facility] 4 10:32:00 Pain in thoracic spine Active 2016 EVIE shaw, [facility] 4 10:32:06 Spasm Active 2017 EVIE shaw, [facility] 4 10:33:28 Abdominal distension, gaseous Completed 201703/08/2018 Problem Code: R14.0; Problem Code Type: ICD-10; Not Available [facility] 3 05:53:50 Cellulitis of toe Completed 201808/12/2018 Problem Code: L03.039; Problem Code Type: ICD-10; Not Available [facility] 3 05:53:51 Other idiopathic peripheral neuropathy NOS Active 2018 Danica Felix colin, [facility] 4 14:36:02 Tachycardia Completed 201811/25/2018 Problem Code: R00.0; Problem Code Type: ICD-10; Not Available [facility] 3 05:53:51 Pre-surgery evaluation Completed 201811/25/2018 Problem Code: Z01.818; Problem Code Type: ICD-10; Not Available [facility] 3 05:53:51 Iron deficiency anemia Active 2019 on oral iron- elevated MCV: normal B12 2021, normal folate [address], [place], [address] , [facility] 4 20:54:37 Lumbago with sciatica Completed 201903/16/202002/24/2020 - Comments only - Vy Pinon SECURITY CONTROL ASSESSOR - Likely aggravated by increased cleaning/lift ing [...] M54.40; Problem Code Type: ICD-10; Not Available [facility] 3 05:53:52 Right side sciatica Active 2019 EVIE HOOPER [facility] 4 10:33:09 Left side sciatica Active [address], [place], [address] , [facility] 4 17:20:20 Diaphragmatic hernia Completed 202108/11/2023 Removal Reason: s/p repair MD [address], [place], [address] , [facility] 4 20:50:39 History of SARS-CoV-2 Completed 202104/04/2022 03/21/2022 - Comments only - Ana Her MD - testing is negative today in the office. Still some fatigue but otherwise recovering. Did get MAB. Already had covid bivalent booster prior to illness Problem Code: Z86.16; Problem Code Type: ICD-10; Not Available [facility] 3 05:53:53 Diarrhea Completed 202104/18/2022 Problem Code: R19.7; Problem Code Type: ICD-10; MD [address], [place], [address] , [facility] 4 21:03:02 Screening mammography Completed 202208/11/[address], [facility] [address] , [facility] 4 20:36:56 Carpal tunnel syndrome of left wrist Completed 202201/23/2023 Problem Code: G56.02; Problem Code Type: ICD-10; Not Available [facility] 4 05:37:46 Diarrhea Active 2022 started colestipol 01/[address], [facility] [address] , [facility] 4 21:03:02 Carpal tunnel syndrome of right wrist Completed 201803/19/2020 Problem Code: G56.01; Problem Code Type: ICD-10; Not Available [facility] 3 05:53:55 Pain of left knee joint Completed 202107/30/2022 Problem Code: M25.562; Problem Code Type: ICD-10; Not Available [facility] 3 05:53:55 Hypersomnia Completed 201311/27/2014 Problem Code: 780.54; Problem Code Type: ICD-9; Not Available [facility] 3 05:53:56 Screening for disorder Completed 201909/11/2021 Problem Code: Z13.9; Problem Code Type: ICD-10; Not Available [facility] 3 05:53:56 Anemia Completed 201903/19/2020 Problem Code: D64.9; Problem Code Type: ICD-10; Not Available [facility] 3 05:53:56 Long-term current use of anticoagulant Completed 201709/01/2018 Problem Code: Z79.01; Problem Code Type: ICD-10; Not Available [facility] 3 05:53:57 Chronic rhinitis Completed 202108/12/2021 Problem Code: J31.0; Problem Code Type: ICD-10; Not Available [facility] 3 05:53:57 Impaired fasting glycemia Completed 201401/28/2023 Not Available [facility] 3 05:53:57 Fatigue Completed 201903/19/2020 Problem Code: R53.83; Problem Code Type: ICD-10; Not Available [facility] 3 05:53:58 Upper respiratory tract infection caused by Influenza A Completed 201707/02/2017 Problem Code: J09.x2; Problem Code Type: ICD-10; Not Available [facility] 3 05:53:59 Diarrhea Completed 201709/01/2018 ANA HER MD [address], [place], [address] [facility] 4 21:03:02 Acute upper respiratory infection Completed 202108/26/2021 Problem Code: J06.9; Problem Code Type: ICD-10; Not Available [facility] 3 05:53:59 Pain in right foot Completed 202207/30/2022 Problem Code: M79.671; Problem Code Type: ICD-10; Not Available [facility] 3 05:54:00 Breast composition Completed 201601/28/2023 Not Available [facility] 3 05:54:00 Changes in skin texture Completed 202207/30/2022 Problem Code: R23.4; Problem Code Type: ICD-10; Not Available [facility] 3 05:54:01 Spasm Completed 201603/23/2017 Problem Code: R25.2; Problem Code Type: ICD-10; EVIE shaw, [facility] 4 10:33:28 Hypertensive disorder Completed 11/27/2014 - Comments only - Ana Her MD - Well controlled, no change in medications Not Available [facility] 3 05:54:03 Arthralgia of the ankle and/or foot Completed 201501/30/2016 Problem Code: M25.571; Problem Code Type: ICD-10; Not Available [facility] 3 05:54:03 Dyspnea Completed 201903/19/2020 Problem Code: R06.02; Problem Code Type: ICD-10; [facility] 4 14:39:47 Trigger finger of right hand Completed 201803/19/2020 Problem Code: M65.341; Problem Code Type: ICD-10; Not Available [facility] 3 05:54:06 Cough Completed 202108/12/2021 Problem Code: R05.1; Problem Code Type: ICD-10; Not Available [facility] 3 05:54:06 At risk - finding Completed 201811/11/2018 Problem Code: Z91.89; Problem Code Type: ICD-10; Not Available [facility] 3 05:54:06 Cough Completed 201706/15/2017 Problem Code: R05; Problem Code Type: ICD-10; Not Available [facility] 3 05:54:07 Preoperative cardiovascula r examination Completed 202112/18/2021 Problem Code: Z01.810; Problem Code Type: ICD-10; Not Available [facility] 3 05:54:08 Arterial bruit Completed 202109/11/2021 Not Available [facility] 3 05:54:08 Gastroesophag eal reflux disease Completed Not Available [facility] 3 05:54:09 Imaging of musculoskelet al system abnormal Completed 201603/23/2017 Problem Code: R93.7; Problem Code Type: ICD-10; Not Available [facility] 3 05:54:10 Blood glucose outside reference range Completed 201503/20/2016 Problem Code: R73.09; Problem Code Type: ICD-10; Not Available [facility] 3 05:54:10 Abdominal aortic aneurysm Completed 195912/04/2014 Not Available [facility] 3 05:54:11 Lung field abnormal Completed 202109/11/2021 Problem Code: R91.8; Problem Code Type: ICD-10; Not Available [facility] 3 05:54:11 Ingrowing nail Completed 201503/23/2017 Problem Code: L60.0; Problem Code Type: ICD-10; Not Available [facility] 3 05:54:11 Hypokalemia Completed 201504/17/2016 Problem Code: E87.6; Problem Code Type: ICD-10; Not Available [facility] 3 05:54:12 Spasm Completed 202201/23/2023 Problem Code: M62.838; Problem Code Type: ICD-10; EVIE shaw, [facility], [facility]. 4 10:33:28 Aneurysm of ascending aorta Active [address], [place], [address] , [facility], [facility]. 4 19:24:51 Bicuspid aortic valve Active 2023 severe by ECHO 07/[address], [place], [address] , [facility], [facility]. 4 19:33:10 Osteopenia Active 2023 EVIE shaw [facility] 4 10:28:13 Venous stasis Active 2023 EVIE shaw, [facility]. 4 10:29:14 Chronic kidney disease Active 2017 Stage 3bA1v eGFR 42-[address], [place], [address] , [facility], [facility]. 4 20:49:29 Dyspnea on exertion Active 2018 [facility] 4 14:39:44 Hiatal hernia Completed 202108/11/2023 lap repair MD [address], [address] , [facility] 4 20:51:15 Edema of lower extremity Active [address], [address] 4 20:55:49 Atrial fibrillation Active 2016 s/p pulmonoary vein isolation 05/2018, chronic anticoagulati on with Xarelto MD [address], [address] 4 09:14:08 Obesity Active [address], [place] [address] , [facility] 4 09:26:22 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 MD [address], [place] [address] , [facility] 4 09:13:49 Swelling of bilateral lower limbs Active [address], [place] [address] , [facility] 4 14:35:13 Problem Notes None recorded. Procedures Surgical History None recorded. Imaging Results Imaging Date Name Status LastModified by Organization Details LastModified Time 10/14/2023 electrocardiogram completed [facility] [address], [place] [address], 10/14/2023 11:56:20 Procedure Notes None recorded. Medical Equipment None Reported. Allergies Allergen ID Allergen Name Allergen Category Reaction Reaction Severity Criticality Documentation Date Start Date Code Code System Note Provider Name and Address Organization Details Recorded Time 44335 amlodipin e medicatio n swelling severe high 11/18/2023 54160 [facility] Shaneka Herrera MA null, [place] - [facility]. 4 13:47:28 Medications Name Sig Start Date [...] 1 tab by mouth daily 06/02 completed [facility] Not Available Not Available Not [...] for spasms 10/15 completed [facility], [facility] Not Available Not Available Not Available Lamisil [...] 1 tab by mouth daily 2017 active [facility] Not Available Not Available Not Available warfarin 1 mg tablet Take as directed 2017 active Not Available Not Available Not Avai lable ibuprofen 600 mg tablet Take 1 tab by mouth three times daily as needed for pain 06/02 completed [facility] Not Available Not Available Not Available colchicin [...] month, then increase to 1.2 mg daily. 10/084 completed PA did not go through, trying [...] Not Available Not Available Not Available Vitals None Recorded Social History Question Answer Notes LastModified by Organizat ion Details LastModified Time Tobacco Smoking Status Never Smoker KRYSTAL SKELTON LPN [facility], [place] - [facility]. 08/12/2023 07:44:55 Date Of Most Recent HSA [...] And Wanted Help? (For Example, If You [place] Very Nervous, Lonely, Or Blue; Got Sick [...] Of Your Most Recent Tobacco Screening? 11/18/2023 Information not available 11/18/2023 Has Tobacco Cessation Counseling Been Provided? Yes [email or web address] Information not available 11/18/2023 On What Date Was Tobacco Cessation Counseling Provided? 11/18/2023 [email or web address] Information not available 11/18/2023 Do You Or [...] Details Recorded Time Pneumococcal conjugate PCV20, polysaccharide PIA353 conjugate, adjuvant, PF 08/12/[address], [place], [address], [facility] 08/12/2023 11:52:18 COVID-19, mRNA, LNP-S, PF, vanda-sucrose, 30 mcg/0.3 mL 08/12/[address], [place], [address], [facility] 08/12/2023 11:52:18 Tdap 11/05/2010 completed Not Available [facility] 06:18:37 Tdap 02/18/2021 completed Not Available [facility] 11 /02/2023 06:18:37 zoster live 07/28/2014 completed Not Available [facility] 03/13/2023 06:18:37 Influenza, high-dose, trivalent, PF 02/22/2018 completed Not Available [facility] 03/13/2023 06:18:38 Influenza, split virus, trivalent, preservative 09/03/2015 completed Not Available [facility] 03/13/2023 06:18:38 Pneumococcal Conjugate, unspecified formulation 07/28/2014 completed Not Available [facility] 03/13/2023 06:18:38 Influenza, split virus, quadrivalent, preservative 02/03/2017 completed Not Available [facility] 03/13/2023 06:18:38 Influenza, high-dose, quadrivalent, PF 02/06/2022 completed Not Available [facility] 03/13/2023 06:18:38 Influenza, high-dose, quadrivalent, PF 02/18/2021 completed Not Available [facility] 03/13/2023 06:18:38 Influenza, high-dose, quadrivalent, PF 02/24/2020 completed Not Available [facility] 03/13/2023 06:18:38 COVID-19, mRNA, LNP-S, PF, 100 mcg/0.5mL dose or 50 mcg/0.25mL dose 06/28/2020 completed Not Available [facility] 03/13/2023 06:18:38 COVID-19, mRNA, LNP-S, PF, 100 mcg/0.5mL dose or 50 mcg/0.25mL dose 07/27/2020 completed Not Available [facility] 03/13/2023 06:18:39 COVID-19, mRNA, LNP-S, PF, 100 mcg/0.5mL dose or 50 mcg/0.25mL dose 03/19/2021 completed Not Available [facility] 03/13/2023 06:18:39 COVID-19, mRNA, LNP-S, bivalent, PF, 30 mcg/0.3 mL dose 02/06/2022 completed Not Available [facility] 03/13/20 06:18:39 pneumococcal polysaccharide PPV23 11/05/2010 completed Not Available [facility] 2022 06:18:39 influenza, unspecified formulation 12/30/2015 completed Not Available [facility] 03/13/2023 06:18:39 influenza, unspecified formulation 04/17/2014 completed Not Available [facility] 03/13/2023 06:18:39 Influenza, high-dose, quadrivalent, PF 01/23/2023 completed Not Available [facility] 05/15/2023 05:33:16 Past Encounters Encounter ID Performer Location Encounter Start Date Encounter Closed Date Diagnosis/Indication Diagnosis SNOMED-CT Code [id number] ANA HER MD [facility] [address] [place] [address] 10/14/2023 09:26:19 10/14/2023 11:16:13 Pre-surgery evaluation [id number] Left side sciatica 91067 [id number] 4 Atrial fibrillation 4943 6004 Chronic ki dney disease 205460154 Diarrhea [id number] Prediabetes [id number] Health Concerns Section Related Observation LastModified by Organization Detai ls LastModified Time None Recorded Concern Status LastModified by Organization Details LastModified Time None Recorded Payers Encounter Date Sequence Insurance Name Policy Number Policy Palacio Covered Member ID Palacio Member ID Guarantor Name 10/14/2023 1 [place] [employer] Digna Lemus Whitney [id number] Digna Olson 10/14/2023 2 [place] [facility] Digna Christiansensocorro [id number] Digna Olson Notes Date Note Type Note Provider Name and Address Organization Details Recorded Time 10/14/2023 text/html HPI Notes: Avinash parekh presents for pre-op evaluation. Procedure CT 3D TAVR Reconstruction with Cardiac surgery at [facility] on 10/19. She is hoping that her [...] was always on the 0.6 mg dose. ANA HER MD [address], [place], [address], [facility]. 10/14/2023 11:58:08 OBGyn Episode No OBEpisode recorded.
--- OUTSIDE RECORDS SUMMARY | 2023-11-18 22:11 | XMS_ITS | Encounter Summary ---
[place] [address] Care Team Providers Care Golf Course Laborer Name Role Phone Ana Her MD Primary Care Provider [phone] Encounter Details Date Type Department Care Team (Late st Contact Info) Description 12/17/2021 Telephone [place] [phone] Roma Estrada RN Social History Tobacco Use [...] on filedocumented in this encounter Care Teams Golf Course Laborer Relationship Specialty Start Date End Date Ana Her MD [address] [place] [address] PCP - General 07/29/13 documented as of this encounter
--- OUTSIDE RECORDS SUMMARY | 2023-11-18 22:11 | XMS_ITS | Encounter Summary ---
Author Organization [facility] [place] [address] Care Team Providers Care Garment Fitter Name Role Phone Ana Her MD Primary Care Provider Encounter Details Date Type Department Care Team (Latest Contact Info) Description 01/08/2022 6:11 AM EDT - 01/08/2022 9:40 AM EDT Hospital Encounter [place] [phone] Laura Park MD [facility] [place] [address] Discharge Disposition: Home Social History Tobacco Use [...] a nurse in the Thoracic Clinic at [phone]. After hours or on weekends or holidays please call: [phone] and ask to speak to the Thoracic Physician multifocal button generator. Diet: You should follow a clear liquid [...] - 5pm): General Surgery and Bariatric Surgery [phone] Bariatric Surgeons: Drs. Park and John [phone] Sand Temperer: [phone] Dietitians: [phone] Outside of regular business hours, including weekends and holidays: Ask for General Surgery resident multifocal button generator [phone] Please note, this call will be answered [...] of left breast of female, estrogen receptor umijpicaT04.512, Z17.0 ??? Anemia D64.9 ??? Aortic valve [...] 6.43) performed by Malika Chen MD at [facility] MAIN OR ??? PRO INTRAOP SENTINEL LYMPH ID W/DYE INJECTION Left 03/30/2017 ?? INTRAOPERATIVE ID (MAPPING) SENTINEL LYMPH NODE,INCLUDES INJECTION (WRVU 2.5) performed by Malika Chen MD at [facility] MAIN OR ??? PRO MASTECTOMY PARTIAL Left 03/30/2017 ?? MASTECTOMY PARTIAL (WRVU 10.13) performed by Malika Chen MD at [facility] MAIN OR ?? Cholecystectomy ?? Medications: ?? [...] Park MD - 01/08/2022 7:48 AM EDT [facility] [place] Patient Name: Digna Olson : [id number] MR#: [id number] Case Date: 01/08/2022 Surgeon: Surgeon(s) and Role: [...] Info Order Time SPECIMEN TO PATHOLOGY Gastric Gentry for H Pylori Hiatal hernia Gastric Gentry for H Pylori excision 01/08/2022 8:15 AM [...] 8:14 AM EDT Upper GI Endoscopy, Diagnostic (21135) Yes 01/08/2022 7:40 AM EDT Hiatal hernia POCT GLUCOSE Routine 01/08/2022 6:33 AM EDT documented in this encounter Results * Specimen to Pathology (01/08/2022 8:15 AM EDT) AP Specimen 01/08/2022 8:15 AM EDT 01/08/2022 8:15 AM EDT Narrative [facility] - 01/08/2022 8:15 AM EDT Specimen requisition ordered. ??Separate Pathology report to follow Laura Park MD PATHOLOGY/CYTOLOGY ORDERABLES [facility] [place] [address] * Surgical Pathology Report (01/08/2022 8:14 AM EDT) Surgical Pathology Report [id number] ? Location: SDP; SD36; A The signing pathologist has (i) examined the relevant preparation(s) for the specimen(s) and (ii) rendered or confirmed the diagnosis(es). . ?Surgical Pathology DIAGNOSIS A - Gastric ??Antrum for H Pylori, excision: - ??Antrum-type mucosa with reactive gastropathy. Electronically signed by: ?Umang Raymundo MD Verified: ??01/09/2022 16:36 ??Pathologist Performed at: ??-[facility] [place]. [place], [place], [place] SPECIMEN(S) SUBMITTED A - Gastric ??Antrum for H Pylori, excision (1) CLINICAL INFORMATION Hiatal hernia SPECIMEN PROCESSING A - Labeled/Fixativ e: Gastric antrum for H. pylori, formalin. Quantity/Size: Single, 0.3 cm. Tissue Description: Soft, pink tissue. Sections/Proces sing: Submitted en toto ??in 1 cassette labeled A1. ??sns [facility] 01/08/2022 8:14 AM EDT Laura Park MD PATHOLOGY/CYTOLOGY ORDERABLES Performing Organization Address [facility] Co de Phone Number [facility] [place] [address] * POCT Glucose (01/08/2022 6:33 AM EDT) POC Glucose 120 65 - 199 mg/dL [facility] Comment: Supplemental ranges: <140 mg/dL before meals <180 mg/dL all other times of the day Blood 01/08/2022 6:33 AM EDT 01/08/2022 6:33 AM EDT Laura Park MD POINT OF CARE TEST ORDERABLES Performing Organization Address [facility] Co de Phone Number [facility] [place] [place] [address] documented in this encounter Visit Diagnoses Not on filedocumented in this encounter Active and Recently Administered Medications Care Teams Garment Fitter Relationship Specialty Start Date End Date Ana Her MD [address] [place] [address] PCP - General 07/29/13 documented as of this encounter
--- OUTSIDE RECORDS SUMMARY | 2023-11-18 22:11 | XMS_ITS | Encounter Summary ---
Author Organization [facility] [place] [address] Care Team Providers Care Tankage Grinder Name Role Phone Ana Her MD Primary Care Provider [phone] Encounter Details Date Type Department Care Team (Late st Contact Info) Description 03/10/2022 1:35 AM EST Ancillary Procedure [place] [address] Ana Her MD [facility] [address] [place] [address] Social History Tobacco Use Types Packs/Day Years [...] CT Chest (03/10/2022 1:31 AM EST) Narrative [facility] - 03/10/2022 1:31 AM EST This exam is auto-finalizing. It's purpose is for storage only. Ana Her MD [facility] FILM LIBRARY ORD ERABLES [place], [place] documented in this encounter Visit Diagnoses Not on filedocumented in this encounter Care Teams Tankage Grinder Relationship Specialty Start Date End Date Ana Her MD [address] [place] [address] [facility] [address] [place] [address] PCP - General 07/29/13 documented as of this encounter
--- OUTSIDE RECORDS SUMMARY | 2023-11-18 22:11 | XMS_ITS | Encounter Summary ---
[place] [address] Care Team Providers Care Grizzlyman Name Role Phone Ana Her MD Primary Care Provider [phone] Encounter Details Date Type Department Care Team (Late st Contact Info) Description 12/24/2021 Telephone [place] [phone] Chelsie Lauren Social History Tobacco Use Types [...] on filedocumented in this encounter Care Teams Grizzlyman Relationship Specialty Start Date End Date Ana Her MD [address] [place] [address] PCP - General 07/29/13 documented as of this encounter
--- OUTSIDE RECORDS SUMMARY | 2023-11-18 22:11 | XMS_ITS | Encounter Summary ---
[place] [address] Care Team Providers Care Prop Maker Name Role Phone Ana Her MD Primary Care Provider [phone] Encounter Details Date Type Department Care Team (Late st Contact Info) Description 10/23/2022 Telephone Mammography/[place] [phone] Aby Loredo Social History Tobacco Use Types [...] on filedocumented in this encounter Care Teams Prop Maker Relationship Specialty Start Date End Date Ana Her MD [address] [place] [address] PCP - General 07/29/13 documented as of this encounter
--- OUTSIDE RECORDS SUMMARY | 2023-11-18 22:11 | XMS_ITS | Encounter Summary ---
Author Organization [facility] [place] [address] Care Team Providers Care Vitamin Manager Name Role Phone Ana Her MD Primary Care Provider [phone] Encounter Details Date Type Department Care Team (Late st Contact Info) Description 03/09/2022 Telephone [place] [address] Prakash Mendez MD [facility] [place] [address] Social History Tobacco Use Types Packs/Day Years [...] the mobile number listed in her chart ([phone]). Her other daughter answered the phone and reported that she had just dropped her off in the Emergency Department at [facility] and parked the car. She was walking back to the building to be with her. I reassured her that going to the Emergency Department seemed like a reasonable plan. I assured her that we are always happy to see her here at [facility] anytime and that they could call back anytime with further questions or concerns. This note will be routed to the provider mentioned above. Prakash Mendez MD documented in this encounter Plan of Treatment Not on file documented as of this encounter Visit Diagnoses Not on filedocumented in this encounter Care Teams Vitamin Manager Relationship Specialty Start Date End Date Ana Her MD [address] [place] [address] PCP - General 07/29/13 documented as of this encounter
--- OUTSIDE RECORDS SUMMARY | 2023-11-18 22:11 | XMS_ITS | Encounter Summary ---
[place] [address] Care Team Providers Care Turf Grower Name Role Phone Ana Her MD Primary Care Provider Encounter Details Date Type Department Care Team (Late st Contact Info) Description 11/01/2021 Telephone [place] [phone] Chelsie Lauren Social History Tobacco Use Types [...] on filedocumented in this encounter Care Teams Turf Grower Relationship Specialty Start Date End Date Ana Her MD [address] [place] [address] PCP - General 07/29/13 documented as of this encounter
--- OUTSIDE RECORDS SUMMARY | 2023-11-18 22:11 | XMS_ITS | Encounter Summary ---
[place] [address] Care Team Providers Care Fractionating Still Operator Name Role Phone Ana Her MD Primary Care Provider [phone] Encounter Details Date Type Department Care Team (Late st Contact Info) Description 01/08/2022 7:30 AM EDT - 01/08/2022 8:40 AM EDT Surgery [place] [phone] Laura Park MD [facility] [place] [address] EGD, UPPER GI ENDOSCOPY (WRVU 2.09) Social [...] a nurse in the Thoracic Clinic at [phone]. After hours or on weekends or holidays please call: [phone] and ask to speak to the Thoracic Physician director of content marketing. Diet: You should follow a clear liquid [...] - 5pm): General Surgery and Bariatric Surgery [phone] Bariatric Surgeons: Drs. Park and John [phone] Machine Filler Servicer: [phone] Dietitians: [phone] Outside of regular business hours, including weekends and holidays: Ask for General Surgery resident director of content marketing [phone] Please note, this call will be answered [...] of left breast of female, estrogen receptor kkkhjflnL79.512, Z17.0 ??? Anemia D64.9 ??? Aortic valve [...] 6.43) performed by Malika Chen MD at [facility] MAIN OR ??? PRO INTRAOP SENTINEL LYMPH ID W/DYE INJECTION Left 03/30/2017 ?? INTRAOPERATIVE ID (MAPPING) SENTINEL LYMPH NODE,INCLUDES INJECTION (WRVU 2.5) performed by Malika Chen MD at [facility] MAIN OR ??? PRO MASTECTOMY PARTIAL Left 03/30/2017 ?? MASTECTOMY PARTIAL (WRVU 10.13) performed by Malika Chen MD at [facility] MAIN OR ?? Cholecystectomy ?? Medications: [...] Park MD - 01/08/2022 7:48 AM EDT [facility] Operative Note Patient Name: Digna Olson : [id number] MR#: [id number] Case Date: 01/08/2022 Surgeon: Surgeon(s) and Role: [...] Info Order Time SPECIMEN TO PATHOLOGY Gastric Freeborn for H Pylori Hiatal hernia Gastric Freeborn for H Pylori excision 01/08/2022 8:15 AM [...] 8:14 AM EDT Upper GI Endoscopy, Diagnostic (56832) Yes 01/08/2022 7:40 AM EDT Hiatal hernia POCT GLUCOSE Routine 01/08/2022 6:33 AM EDT documented in this encounter Results * Specimen to Pathology (01/08/2022 8:15 AM EDT) AP Specimen 01/08/2022 8:15 AM EDT 01/08/2022 8:15 AM EDT Narrative [facility] - 01/08/2022 8:15 AM EDT Specimen requisition ordered. ??Separate Pathology report to follow Laura Park MD PATHOLOGY/CYTOLOGY ORDERABLES [facility] [place] [address] * Surgical Pathology Report (01/08/2022 8:14 AM EDT) Surgical Pathology Report [id number] ? Location: SDP; SD36; A The signing pathologist has (i) examined the relevant preparation(s) for the specimen(s) and (ii) rendered or confirmed the diagnosis(es). . ?Surgical Pathology DIAGNOSIS A - Gastric ??Antrum for H Pylori, excision: - ??Antrum-type mucosa with reactive gastropathy. Electronically signed by: ?Zackary MELTON, Umang Verified: ??01/09/2022 16:36 ??Pathologist Performed at: ??-[facility] Dept. of Pathology, [place], [place] SPECIMEN(S) SUBMITTED A - Gastric ??Antrum for H Pylori, excision (1) CLINICAL INFORMATION Hiatal hernia SPECIMEN PROCESSING A - Labeled/Fixativ e: Gastric antrum for H. pylori, formalin. Quantity/Size: Single, 0.3 cm. Tissue Description: Soft, pink tissue. Sections/Proces sing: Submitted en toto ??in 1 cassette labeled A1. ??sns [facility] 01/08/2022 8:14 AM EDT Laura Park MD PATHOLOGY/CYTOLOGY ORDERABLES Performing Organization Address [facility] Co de Phone Number [facility] [place] [address] * POCT Glucose (01/08/2022 6:33 AM EDT) POC Glucose 120 65 - 199 mg/dL [facility] Comment: Supplemental ranges: <140 mg/dL before meals <180 mg/dL all other times of the day Blood 01/08/2022 6:33 AM EDT 01/08/2022 6:33 AM EDT aLura Park MD POINT OF CARE TEST ORDERABLES Performing Organization Address [facility] Co de Phone Number [facility] [address] documented in this encounter Visit Diagnoses Not on filedocumented in this encounter Active and Recently Administered Medications Care Teams Fractionating Still Operator Relationship Specialty Start Date End Date Ana Her MD [address] [place] [address] PCP - General 07/29/13 documented as of this encounter
--- OUTSIDE RECORDS SUMMARY | 2023-11-18 22:11 | XMS_ITS | Encounter Summary ---
[place] [address] Care Team Providers Care Cop Name Role Phone Ana Her MD Primary Care Provider Encounter Details Date Type Department Care Team (Late st Contact Info) Description 01/08/2022 7:42 AM EDT Anesthesia Event [place] [address] Alisa Naqvi MD [facility] [place] [address] Anesthesia Record Procedure Summary Procedure Name Responsible [...] cephalic vein (lateral side of arm), left; bviz-[id number] catheter system; Anatomical Landmarks; 20 gauge; Joslyn [...] Procedure Summary Date: 01/08/22 Room / Location: [address] MAIN OR Anesthesia Start: 741 Anesthesia Stop: 825 Procedure: EGD, UPPER GI ENDOSCOPY (N/A Trunk) Diagnosis: (Hiatal hernia) Surgeons: Laura Will MD Responsible Provider: Alisa Naqvi MD Anesthesia Type: general ASA Status: 3 All Anesthesia Providers: Anesthesiologist: Alisa Naqvi MD Flight Engineer Instructor: Nghia Valerio MD Vitals Value Taken Time BP 98/56 01/08/22 0823 Temp Pulse Resp SpO2 99 % 01/08/22 0827 Pain Level Vitals shown include unvalidated device data. Patient Location: PACU/[facility] Level of Consciousness: Conscious but Sleepy Pain [...] of left breast of female, estrogen receptor ihzaduaa13/25/2017 ??? Bicuspid aortic valve 06/10/2016 ??? Dyspnea [...] 6.43) performed by Malika Chen MD at [facility] MAIN OR ??? PRO INTRAOP SENTINEL LYMPH ID W/DYE INJECTION Left 03/30/2017 INTRAOPERATIVE ID (MAPPING) SENTINEL LYMPH NODE,INCLUDES INJECTION (WRVU 2.5) performed by Malika Chen MD at [facility] MAIN OR ??? PRO MASTECTOMY PARTIAL Left 03/30/2017 MASTECTOMY PARTIAL (WRVU 10.13) performed by Malika Chen MD at [facility] MAIN OR Social History Tobacco Use [...] mg documented in this encounter Care Teams Cop Relationship Specialty Start Date End Date Ana Her MD [address] [facility] [place] [address] PCP - General 07/29/13 documented as of this encounter
--- OUTSIDE RECORDS SUMMARY | 2023-11-18 22:11 | XMS_ITS | Encounter Summary ---
[place] [address] Care Team Providers Care Security Solutions Engineer Name Role Phone Ana Her MD Primary Care Provider [phone] Reason for Visit * Auth/Cert Specialty Diagnoses / Procedures Referred By Christiano hackett Referred To Contact Diagnoses S/P repair of paraesophageal hernia Post-Op monitoring Procedures PRO LAPARSCOPY REPAIR PARAESOPHAGEAL HERNIA INCL FUNDOPLASTY W/O MESH LAPAROSCOPIC PARAESOPHAGEAL HERNIA REPAIR W/FUNDOPLASTY, W/O MESH (WRVU 26.6) MODIFIER TOUPET FUNDOPLASTY Shania Will MD [facility] [place] [address] [facility] Referral ID Status Reason Start Date Expiration Date Visits Re quested Visits Authorized [id number] 1 1 Encounter Details Date Type Department Care Team (Latest Contact Info) Description 03/05/2022 11:55 AM EDT - 03/07/2022 10:00 AM EDT Hospital Encounter [place] [id number] Shania Will MD [facility] [place] [address] Discharge Disposition: Home Social History Tobacco Use [...] 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 Anemia D64.9 ??? Aortic valve [...] Per chart review, her creatinine levels in 4674-5031 ranged from 0.87-1.50 indicative of possible undiagnosed [...] PM Shania Will MD General Surgery at [facility] Arrive at: [facility] [phone] Instructions Given to Patient at Discharge: Patient [...] hours please call the Surgery Clinic at [phone] before 5 PM on weekdays. For questions after hours and on weekends please call the hospital felt cutting machine operator at [phone] and ask for the General Surgery resident data migration consultant. They may not be familiar with your [...] post Sly diet, as instructed by the hat brusher machine in the hospital for a period of [...] renal function. Please call the clinic at [phone] to confirm or reschedule. Future Appointments Date Time Provider Department Center 04/03/2022 12:00 PM Shania Will MD [facility] SURG [facility] General Instructions None Future Appointments and Orders Future Appointments and Orders Future Appointments Provider Department Dept Phone 04/03/2022 12:00 PM Shania Will MD General Surgery at [facility] Arrive at: [facility] Signed: Shena Harden MD 03/07/22 7:18 AM [facility] 2026 Primary [place] Physician: MD Geovany David DR [facility] [id number] documented in this encounter Discharge Instructions * [...] hours please call the Surgery Clinic at [phone] before 5 PM on weekdays. For questions after hours and on weekends please call the hospital felt cutting machine operator at [phone] and ask for the General Surgery resident data migration consultant. They may not be familiar with your [...] post Sly diet, as instructed by the hat brusher machine in the hospital for a period of [...] renal function. Please call the clinic at [phone] to confirm or reschedule. Future Appointments Date Time Provider Department Center 04/03/2022 12:00 PM Shania Will MD [facility] SURG [facility] documented in this encounter Medications at Time [...] Ocampo RN - 03/07/2022 10:25 AM EDT [facility] Short Stay Unit Discharge Note All relevant [...] Sly Diet Education to pt Digna Olson. Senior Programmer metwith pt at bedside to deliver full [...] she is noticing some overall improvement post op.Senior Programmer took note of this and encouraged the [...] Department contact information provided. Pt appreciate of senior technical writer's time. Nutrition to follow as needed. Active [...] Perez MD 03/05/2022 Minimally Invasive Surgery Pager #[phone] * Lorrie Slater RN - 03/05/2022 6:46 [...] ?? She is followed by cardiology at [facility], and is on xarelto. [...] of left breast of female, estrogen receptor [id number], Z17.0 ??? Anemia D64.9 ??? Aortic valve [...] 6.43) performed by Malika Chen MD at [facility] MAIN OR ??? PRO INTRAOP SENTINEL LYMPH ID W/DYE INJECTION Left 03/30/2017 ?? INTRAOPERATIVE ID (MAPPING) SENTINEL LYMPH NODE,INCLUDES INJECTION (WRVU 2.5) performed by Malika Chen MD at [facility] MAIN OR ??? PRO MASTECTOMY PARTIAL Left 03/30/2017 ?? MASTECTOMY PARTIAL (WRVU 10.13) performed by Malika Chen MD at [facility] MAIN OR ?? Cholecystectomy ?? [...] Operative Note Patient Name: Digna Olson : [id number] MR#: [id number] Case Date: 03/05/2022 Surgeon: Surgeon(s) and Role: [...] Flores MD - 03/05/2022 2:32 PM EDT [facility] Operative Note Patient Name: Digna Olson : [id number] MR#: [id number] Case Date: 03/05/2022 Surgeon: Surgeon(s) and Role: [...] Repair Paraesophageal Hernia Incl Fundoplasty W/O Mesh (31451) 03/05/2022 1:58 PM EDT Paraesophageal Hernia POCT GLUCOSE Routine 03/05/2022 12:18 PM EDT LAPAROSCOPIC PARAESOPHAGEAL HERNIA REPAIR W FUNDOPLASTY, W/O MESH Routine 03/05/2022 12:02 PM EDT documented in this encounter Results * (ABNORMAL) Differential, Automated (03/07/2022 5:08 AM EDT) Neutrophils % 80.0 % [facility] Neutr Abs (ANC) 5.30 1.70 - 6.10 x10(3)/mc L [facility] Lymphocytes % 12.1 % [facility] Lymphocytes Abs 0.8(L) 0.9 - 3.2 x10(3)/mc L [facility] Monocytes % 7.6 % [facility] Monocyte Abs 0.5 0.3 - 0.9 x10(3)/mc L [facility] Eosinophils % 0.0 % [facility] Eosinophils Abs 0.0 0.0 - 0.4 x10(3)/[facility] Basophils % 0.0 % [facility] Basophils Abs 0.0 0.0 - 0.1 x10(3)/[facility] Immature Gran % 0.30 % [facility] Comment: Immature granulocytes(IG's)percentage and absolute count will include metamyelocytes, myelocytes, and promyelocytes. Blood smears from CBCs yielding IG's will be scanned manually for concordance. If this scan disagrees with the automated IG or if promyelocytes are noted, a manual differential will be performed. Elenita Gran Abs 0.02 0.00 - 0.04 x10(3)/[facility] Blood 03/07/2022 5:08 AM EDT 03/07/2022 5:19 AM EDT Narrative Resulting Agency Comment Spec In Lab Nino Levy MD HEMATOLOGY ORDERABLE S Performing Organization Address City/State/[facility] Co de Phone Number [facility] [place] [address] * (ABNORMAL) Hemogram (03/07/2022 5:08 AM EDT) WBC 6.6 4.0 - 9.5 x10(3)/[facility] RBC 3.16(L) 4.00 - 5.21 x10(6)/[facility] Hemoglobin 10.7(L) 11.7 - 15.5 g/dL [facility] Hematocrit 31.7(L) 35.7 - 45.8 % [facility] MCV 100.3(H) 82.6 - 94.4 fL [facility] MCH 33.9(H) 27.1 - 32.0 pg [facility] MCHC 33.8 31.7 - 35.0 g/dL [facility] Platelets 110(L) 145 - 357 x10(3)/[facility] RDWSD 47.5(H) 37.0 - 46.0 fL [facility] RDWCV 12.9 11.5 - 14.1 % [facility] MPV 11.7 7.6 - 12.9 fL [facility] nRBC % Auto 0.0 % [facility] nRBC Abs Auto 0.000 0.000 - 0.000 x10(3)/mcL [facility] Blood 03/07/2022 5:08 AM EDT 03/07/2022 5:19 AM EDT Narrative Resulting Agency Comment Spec In Lab Nino Levy MD HEMATOLOGY ORDERABLE S [facility] [place] [address] * Phosphorus (03/07/2022 5:08 AM EDT) Phosphorus 2.7 2.5 - 4.5 mg/dL [facility] Blood 03/07/2022 5:08 AM EDT 03/07/2022 5:19 AM EDT Narrative Resulting Agency Comment Spec In Lab Shania Will MD CHEMISTRY ORDERABLE S [facility] [place] [address] * Magnesium (03/07/2022 5:08 AM EDT) Magnesium 0.89 0.69 - 1.07 mmol/L [facility] Blood 03/07/2022 5:08 AM EDT 03/07/2022 5:19 AM EDT Narrative Resulting Agency Comment Spec In Lab Shania Will MD CHEMISTRY ORDERABLE S [facility] [place] [address] * (ABNORMAL) Basic Metabolic Panel (non-fasting) (03/07/2022 5:08 AM EDT) Glucose Lvl 111 65 - 199 mg/dL [facility] Comment:Diabetes: >=200 mg/d L plus symptoms BUN 22(H) 8 - 18 mg/dL [facility] Creatinine 0.93 0.70 - 1.20 mg/dL [facility] Sodium 131(L) 135 - 145 mmol/L [facility] Potassium 4.5 3.5 - 5.0 mmol/L [facility] Comment: Please note: ??Patients with WBC >100,000 may have falsely elevated Potassium levels. ??For accurate Potassium quantification in these patients send serum separator tube (gold top) for subsequent determinations. ??Contact the Clinical Chemistry Laboratory if there are any questions. Chloride 100 98 - 107 mmol/L [facility] CO2 22 22 - 31 mmol/L [facility] Anion Gap 9 5 - 15 mmol/L [facility] Calcium 9.2 8.5 - 10.5 mg/dL [facility] Estimated GFR 64 >=60 mL/min/1. 73 m?? [facility] Comment: This patient's estimated GFR [...] Lab Shania Will MD CHEMISTRY ORDERABLE S [facility] [place] [address] * (ABNORMAL) Differential, Automated (03/06/2022 10:15 AM EDT) Pathologist [facility] Neutrophils % 90.7 % [facility] Neutr Abs (ANC) 5.79 1.70 - 6.10 x10(3)/[facility] Lymphocytes % 5.0 % [facility] Lymphocytes Abs 0.3(L) 0.9 - 3.2 x10(3)/[facility] Monocytes % 3.8 % [facility] Monocyte Abs 0.2(L) 0.3 - 0.9 x10(3)/[facility] Eosinophils % 0.0 % [facility] Eosinophils Abs 0.0 0.0 - 0.4 x10(3)/[facility] Basophils % 0.0 % [facility] Basophils Abs 0.0 0.0 - 0.1 x10(3)/[facility] Immature Gran % 0.50 % [facility] Comment: Immature granulocytes(IG's)percentage and absolute count will include metamyelocytes, myelocytes, and promyelocytes. Blood smears from CBCs yielding IG's will be scanned manually for concordance. If this scan disagrees with the automated IG or if promyelocytes are noted, a manual differential will be performed. Elenita Gran Abs 0.03 0.00 - 0.04 x10(3)/[facility] Blood 03/06/2022 10:1 5 AM EDT 03/06/2022 10:21 AM EDT Narrative Resulting Agency Comment Spec In Lab Maryam MUELLER HEMATOLOGY ORDERABL ES [facility] [place] [address] * (ABNORMAL) Hemogram (03/06/2022 10:15 AM EDT) WBC 6.4 4.0 - 9.5 x10(3)/[facility] RBC 3.07(L) 4.00 - 5.21 x10(6)/[facility] Hemoglobin 10.5(L) 11.7 - 15.5 g/dL [facility] Hematocrit 31.1(L) 35.7 - 45.8 % [facility] MCV 101.3(H) 82.6 - 94.4 fL [facility] MCH 34.2(H) 27.1 - 32.0 pg [facility] MCHC 33.8 31.7 - 35.0 g/dL [facility] Platelets 111(L) 145 - 357 x10(3)/[facility] RDWSD 47.2(H) 37.0 - 46.0 [facility] RDWCV 12.9 11.5 - 14.1 % [facility] MPV 11.5 7.6 - 12.9 [facility] nRBC % Auto 0.0 % [facility] nRBC Abs Auto 0.000 0.000 - 0.000 x10(3)/[facility] Blood 03/06/2022 10:1 5 AM EDT 03/06/2022 10:21 AM EDT Narrative Resulting Agency Comment Spec In Lab Maryam MUELLER HEMATOLOGY ORDERABL ES [facility] [place] [address] * Phosphorus (03/06/2022 10:15 AM EDT) Phosphorus 3.3 2.5 - 4.5 mg/dL [facility] Blood 03/06/2022 10:1 5 AM EDT 03/06/2022 10:21 AM EDT Narrative Resulting Agency Comment Spec In Lab Shania Will MD CHEMISTRY ORDERABLE S [facility] [place] [address] * Magnesium (03/06/2022 10:15 AM EDT) Pathologist [facility] Magnesium 0.69 0.69 - 1.07 mmol/L [facility] Blood 03/06/2022 10:1 5 AM EDT 03/06/2022 10:21 AM EDT Narrative Resulting Agency Comment Spec In Lab Shania Will MD CHEMISTRY ORDERABLE S Performing Organization Address [facility]/ZIP Co de Phone Number [facility] [place] [address] * (ABNORMAL) Basic Metabolic Panel (non-fasting) (03/06/2022 10:15 AM EDT) [facility] Glucose Lvl 155 65 - 199 mg/dL [facility] Comment:Diabetes: >=200 mg/d L plus symptoms BUN 29(H) 8 - 18 mg/dL [facility] Creatinine 1.25(H) 0.70 - 1.20 mg/dL [facility] Sodium 134(L) 135 - 145 mmol/L [facility] Potassium 4.8 3.5 - 5.0 mmol/L [facility] Comment: Please note: ??Patients with WBC >100,000 may have falsely elevated Potassium levels. ??For accurate Potassium quantification in these patients send serum separator tube (gold top) for subsequent determinations. ??Contact the Clinical Chemistry Laboratory if there are any questions. Chloride 101 98 - 107 mmol/L [facility] CO2 23 22 - 31 mmol/L [facility] Anion Gap 10 5 - 15 mmol/L [facility] Calcium 8.9 8.5 - 10.5 mg/dL [facility] Estimated GFR 45(L) >=60 mL/min/1. 73 m?? [facility] Comment: This patient's estimated GFR [...] MD CHEMISTRY ORDERABLE S Performing Organization Address City/State/[facility] Co de Phone Number [facility] [place] [address] * (ABNORMAL) Differential, Automated (03/06/2022 4:29 AM EDT) Neutrophils % 90.5 % [facility] Neutr Abs (ANC) 4.47 1.70 - 6.10 x10(3)/mc L [facility] Lymphocytes % 6.9 % [facility] Lymphocytes Abs 0.3(L) 0.9 - 3.2 x10(3)/mc L [facility] Monocytes % 2.2 % [facility] Monocyte Abs 0.1(L) 0.3 - 0.9 x10(3)/mc L [facility] Eosinophils % 0.0 % [facility] Eosinophils Abs 0.0 0.0 - 0.4 x10(3)/mc L [facility] Basophils % 0.2 % [facility] Basophils Abs 0.0 0.0 - 0.1 x10(3)/mc L [facility] Immature Gran % 0.20 % [facility] Comment: Immature granulocytes(IG's)percentage and absolute count will include metamyelocytes, myelocytes, and promyelocytes. Blood smears from CBCs yielding IG's will be scanned manually for concordance. If this scan disagrees with the automated IG or if promyelocytes are noted, a manual differential will be performed. Elenita Gran Abs 0.01 0.00 - 0.04 x10(3)/mc L [facility] Blood 03/06/2022 4:29 AM EDT 03/06/2022 4:49 AM EDT Narrative Resulting Agency Comment Spec In Lab Prakash Mendez MD HEMATOLOGY ORDERABLE S [facility] [place] [address] * (ABNORMAL) Hemogram (03/06/2022 4:29 AM EDT) WBC 4.9 4.0 - 9.5 x10(3)/[facility] RBC 3.08(L) 4.00 - 5.21 x10(6)/[facility] Hemoglobin 10.5(L) 11.7 - 15.5 g/dL [facility] Hematocrit 31.0(L) 35.7 - 45.8 % [facility] MCV 100.6(H) 82.6 - 94.4 fL [facility] MCH 34.1(H) 27.1 - 32.0 pg [facility] MCHC 33.9 31.7 - 35.0 g/dL [facility] Platelets 104(L) 145 - 357 x10(3)/[facility] RDWSD 47.5(H) 37.0 - 46.0 fL [facility] RDWCV 12.9 11.5 - 14.1 % [facility] MPV 11.8 7.6 - 12.9 fL [facility] nRBC % Auto 0.0 % [facility] nRBC Abs Auto 0.000 0.000 - 0.000 x10(3)/mcL [facility] Blood 03/06/2022 4:29 AM EDT 03/06/2022 4:49 AM EDT Narrative Resulting Agency Comment Spec In Lab Prakash Mendez MD HEMATOLOGY ORDERABLE S [facility] [place] [address] * (ABNORMAL) Basic Metabolic Panel (non-fasting) (03/06/2022 4:29 AM EDT) Glucose Lvl 140 65 - 199 mg/dL [facility] Comment:Diabetes: >=200 mg/d L plus symptoms BUN 31(H) 8 - 18 mg/dL [facility] Creatinine 1.32(H) 0.70 - 1.20 mg/dL [facility] Sodium 136 135 - 145 mmol/L [facility] Potassium 5.3(H) 3.5 - 5.0 mmol/L [facility] Comment: Please note: ??Patients with WBC >100,000 may have falsely elevated Potassium levels. ??For accurate Potassium quantification in these patients send serum separator tube (gold top) for subsequent determinations. ??Contact the Clinical Chemistry Laboratory if there are any questions. Chloride 103 98 - 107 mmol/L [facility] CO2 23 22 - 31 mmol/L [facility] Anion Gap 10 5 - 15 mmol/L [facility] Calcium 9.0 8.5 - 10.5 mg/dL [facility] Estimated GFR 42(L) >=60 mL/min/1. 73 m?? [facility] Comment: This patient's estimated GFR [...] Lab Shania Will MD CHEMISTRY ORDERABLE S [facility] [place] [address] * POCT Glucose (03/05/2022 12:18 PM EDT) POC Glucose 94 65 - 199 mg/dL [facility] Comment: Supplemental ranges: <140 mg/dL before meals <180 mg/dL all other times of the day Blood 03/05/2022 12:1 8 PM EDT 03/05/2022 12:18 PM EDT Shania Will MD POINT OF CARE TEST ORDERABLES Performing Organization Address City/[facility]/ZIP Co de Phone Number [facility] [place] [address] documented in this encounter Visit Diagnoses Diagnosis [...] Until Discontinued, Routine 2222 (Given - Provider: lAyssa Perales RN) furosemide (Lasix) tablet 40 mg [...] Unit) documented in this encounter Care Teams Security Solutions Engineer Relationship Specialty Start Date End Date Ana Her MD Geovany [address] [facility] [address] [place] [address] PCP - General 07/29/13 documented as of this encounter
--- OUTSIDE RECORDS SUMMARY | 2023-11-18 22:11 | XMS_ITS | Encounter Summary ---
[place] [address] Care Team Providers Care Granite Polisher Apprentice Name Role Phone Ana Her MD Primary Care Provider [phone] Reason for Visit * Auth/Cert Specialty Diagnoses / Procedures Referred By Christiano hackett Referred To Contact Diagnoses S/P repair of paraesophageal hernia Post-Op monitoring Procedures PRO LAPARSCOPY REPAIR PARAESOPHAGEAL HERNIA INCL FUNDOPLASTY W/O MESH LAPAROSCOPIC PARAESOPHAGEAL HERNIA REPAIR W/FUNDOPLASTY, W/O MESH (WRVU 26.6) MODIFIER TOUPET FUNDOPLASTY Laura Will MD [facility] [place] [address] [facility] Referral ID Status Reason Start Date Expiration Date Visits Re quested Visits Authorized [id number] 1 1 Encounter Details Date Type Department Care Team (Late st Contact Info) Description 03/05/2022 1:58 PM EDT Anesthesia Event [place] [address] Alisa Naqvi MD [facility] [place] [address] Alessia Ramirez [place] [address] Anesthesia Record Procedure Summary Procedure Name Responsible [...] Procedure Summary Date: 03/05/22 Room / Location: [address] [place] Anesthesia Start: 1358 Anesthesia Stop: 1823 Procedures: LAPAROSCOPIC PARAESOPHAGEAL HERNIA REPAIR W/FUNDOPLASTY, W/O MESH (WRVU 26.6) (N/A Abdomen) MODIFIER TOUPET FUNDOPLASTY (N/A Abdomen) Diagnosis: (Paraesophageal Hernia) Surgeons: Laura Will MD Responsible Provider: Alisa Naqvi MD Anesthesia Type: general ASA Status: 3 All Anesthesia Providers: Anesthesiologist: Brayan Hubbard MD; Alisa Naqvi MD; Dario Franco MD Roll Hand: Mo Vance DO Vitals Value Taken Time BP 125/75 03/05/22 1821 Temp Pulse 77 03/05/22 1823 Resp 18 03/05/22 1823 SpO2 100 % 03/05/22 182 Pain Level Vitals shown include unvalidated device data. Patient Location: PACU/[facility] Level of Consciousness: Awake and Alert Pain [...] [facility] MAIN OR ??? PRO UPPER GI ENDOSCOPY, DIAGNOSTIC N/A 01/08/2022 EGD, UPPER GI ENDOSCOPY performed by Laura Will MD at [facility] MAIN OR Social History Tobacco Use [...] sneeze Cardiac Hx: Exercise stress test 10/07/21 [facility]: Resting electrocardiogram showed atrial fibrillation, right BBB, left anterior fascicular block. Patient achieved 4.64METS, achieved 93% of predicted HR for age. Electrocardiographic portion of test negative for ischemia. MPI negative for ischemia or infarction. EF 45%. Wall motion normal. ?? Echo 06/19/21 ([facility]): normal biventricular size and function, symmetric LVH. [...] a-line PONV ppx Mo Vance DO 03/04/2022 Dock Attendant Pager #[phone] Region - Other Informed Consent: Anesthetic plan [...] GERD (omeprazole) ?? Exercise stress test 10/07/21 [facility]: Resting electrocardiogram showed atrial fibrillation, right [...] 1 view ?? Followed by cardiology at [facility], notes under Care Everywhere. Last [...] mg documented in this encounter Care Teams Granite Polisher Apprentice Relationship Specialty Start Date End Date Ana Her MD [address] [place] [address] PCP - General 07/29/13 documented as of this encounter
--- OUTSIDE RECORDS SUMMARY | 2023-11-18 22:11 | XMS_ITS | Encounter Summary ---
Author Organization [facility] [place] [address] Care Team Providers Care Hydroelectric Plant Mechanical Engineer Name Role Phone Ana Her MD Primary Care Provider [phone] Encounter Details Date Type Department Care Team (Late st Contact Info) Description 03/09/2022 11:00 PM EST Ancillary Procedure [place] [address] Ana Her MD [facility] [address] [place] [address] Social History Tobacco Use Types Packs/Day Years [...] CT Chest (03/09/2022 10:56 PM EST) Narrative [facility] - 03/09/2022 10:56 PM EST This exam is auto-finalizing. It's purpose is for storage only. Ana Her MD [facility]M [facility]RARY ORD ERABLES [place], [place] documented in this encounter Visit Diagnoses Not on filedocumented in this encounter Care Teams Hydroelectric Plant Mechanical Engineer Relationship Specialty Start Date End Date Ana Her MD [address] [place] [address] [facility] [address] [place] [address] PCP - General 07/29/13 documented as of this encounter
--- OUTSIDE RECORDS SUMMARY | 2023-11-18 22:11 | XMS_ITS | Encounter Summary ---
[place] [address] Care Team Providers Care Finisher Card Tender Name Role Phone Ana Her MD Primary Care Provider [phone] Reason for Visit * Auth/Cert Specialty Diagnoses / Procedures Referred By Christiano hackett Referred To Contact Diagnoses S/P repair of paraesophageal hernia Post-Op monitoring Procedures PRO LAPARSCOPY REPAIR PARAESOPHAGEAL HERNIA INCL FUNDOPLASTY W/O MESH LAPAROSCOPIC PARAESOPHAGEAL HERNIA REPAIR W/FUNDOPLASTY, W/O MESH (WRVU 26.6) MODIFIER TOUPET FUNDOPLASTY Shania Will MD [facility] [place] [address] [facility] Referral ID Status Reason Start Date Expiration Date Visits Re quested Visits Authorized [id number] 1 1 Encounter Details Date Type Department Care Team (Late st Contact Info) Description 03/05/2022 12:54 PM EDT - 03/05/2022 4:55 PM EDT [place] [phone] Shania Will MD [facility] [place] [address] LAPAROSCOPIC PARAESOPHAGEAL HERNIA REPAIR W/FUNDOPLASTY, W/O MESH [...] of left breast of female, estrogen receptor [id number], Z17.0 ??? Anemia D64.9 ??? Aortic valve [...] Per chart review, her creatinine levels in 2936-4869 ranged from 0.87-1.50 indicative of possible undiagnosed [...] PM Shania Will MD General Surgery at [facility] Arrive at: Hematology Technologist Area [phone] Instructions Given to Patient at Discharge: Patient [...] hours please call the Surgery Clinic at [phone] before 5 PM on weekdays. For questions after hours and on weekends please call the hospital blanker press operator at [phone] and ask for the General Surgery resident labour market economist. They may not be familiar with your [...] post Sly diet, as instructed by the wet plant operator in the hospital for a period of [...] renal function. Please call the clinic at [phone] to confirm or reschedule. Future Appointments Date Time Provider Department Center 04/03/2022 12:00 PM Shania Will MD [facility] SURG [facility] General Instructions None Future Appointments and Orders Future Appointments and Orders Future Appointments Provider Department Dept Phone 04/03/2022 12:00 PM Shania Will MD General Surgery at [facility] Arrive at: Hematology Technologist Area 4L [phone] Signed: Shena Harden MD 03/07/22 7:18 AM [phone] Primary Saima Physician: MD Geovany David DR [facility] [id number] documented in this encounter Discharge Instructions * [...] hours please call the Surgery Clinic at [phone] before 5 PM on weekdays. For questions after hours and on weekends please call the hospital blanker press operator at [phone] and ask for the General Surgery resident labour market economist. They may not be familiar with your [...] post Sly diet, as instructed by the wet plant operator in the hospital for a period of [...] renal function. Please call the clinic at [phone] to confirm or reschedule. Future Appointments Date Time Provider Department Center 04/03/2022 12:00 PM Shania Will MD [facility] SURG [facility] documented in this encounter Medications at Time [...] Ocampo RN - 03/07/2022 10:25 AM EDT [facility] Short Stay Unit Discharge Note All [...] Sly Diet Education to pt Digna Olson. Social Welfare Clerk metwith pt at bedside to deliver full [...] she is noticing some overall improvement post op.Social Welfare Clerk took note of this and encouraged the [...] Department contact information provided. Pt appreciate of typewriter aligner's time. Nutrition to follow as needed. Active [...] Perez MD 03/05/2022 Minimally Invasive Surgery Pager #[phone] * Lorrie Slater RN - 03/05/2022 6:46 [...] ?? She is followed by cardiology at [facility], and is on xarelto. ?? Impression: ??Symptomatic [...] of left breast of female, estrogen receptor [id number], Z17.0 ??? Anemia D64.9 ??? Aortic valve [...] 6.43) performed by Malika Chen MD at [facility] MAIN OR ??? PRO INTRAOP SENTINEL LYMPH ID W/DYE INJECTION Left 03/30/2017 ?? INTRAOPERATIVE ID (MAPPING) SENTINEL LYMPH NODE,INCLUDES INJECTION (WRVU 2.5) performed by Malika Chen MD at [facility] MAIN OR ??? PRO MASTECTOMY PARTIAL Left 03/30/2017 ?? MASTECTOMY PARTIAL (WRVU 10.13) performed by Malika Chen MD at [facility] MAIN OR ?? Cholecystectomy ?? Medications: [...] Operative Note Patient Name: Digna Olson : [id number] MR#: [id number] Case Date: 03/05/2022 Surgeon: Surgeon(s) and Role: [...] Flores MD - 03/05/2022 2:32 PM EDT [facility] Operative Note Patient Name: Digna Olson : [id number] MR#: [id number] Case Date: 03/05/2022 Surgeon: Surgeon(s) and Role: [...] Repair Paraesophageal Hernia Incl Fundoplasty W/O Mesh ([id number]) 03/05/2022 1:58 PM EDT Paraesophageal Hernia POCT GLUCOSE Routine 03/05/2022 12:18 PM EDT LAPAROSCOPIC PARAESOPHAGEAL HERNIA REPAIR W FUNDOPLASTY, W/O MESH Routine 03/05/2022 12:02 PM EDT documented in this encounter Results * (ABNORMAL) Differential, Automated (03/07/2022 5:08 AM EDT) Neutrophils % 80.0 % [facility] Neutr Abs (ANC) 5.30 1.70 - 6.10 x10(3)/mc L [facility] Lymphocytes % 12.1 % [facility] Lymphocytes Abs 0.8(L) 0.9 - 3.2 x10(3)/mc L [facility] Monocytes % 7.6 % [facility] Monocyte Abs 0.5 0.3 - 0.9 x10(3)/mc L [facility] Eosinophils % 0.0 % [facility] Eosinophils Abs 0.0 0.0 - 0.4 x10(3)/[facility] Basophils % 0.0 % [facility] Basophils Abs 0.0 0.0 - 0.1 x10(3)/[facility] Immature Gran % 0.30 % [facility] Comment: Immature granulocytes(IG's)percentage and absolute count will include metamyelocytes, myelocytes, and promyelocytes. Blood smears from CBCs yielding IG's will be scanned manually for concordance. If this scan disagrees with the automated IG or if promyelocytes are noted, a manual differential will be performed. Elneita Gran Abs 0.02 0.00 - 0.04 x10(3)/[facility] Blood 03/07/2022 5:08 AM EDT 03/07/2022 5:19 AM EDT Narrative Resulting Agency Comment Spec In Lab Nino Levy MD HEMATOLOGY ORDERABLE S [facility] [place] [address] * (ABNORMAL) Hemogram (03/07/2022 5:08 AM EDT) WBC 6.6 4.0 - 9.5 x10(3)/[facility] RBC 3.16(L) 4.00 - 5.21 x10(6)/[facility] Hemoglobin 10.7(L) 11.7 - 15.5 g/dL [facility] Hematocrit 31.7(L) 35.7 - 45.8 % [facility] MCV 100.3(H) 82.6 - 94.4 fL [facility] MCH 33.9(H) 27.1 - 32.0 pg [facility] MCHC 33.8 31.7 - 35.0 g/dL [facility] Platelets 110(L) 145 - 357 x10(3)/[facility] RDWSD 47.5(H) 37.0 - 46.0 fL [facility] RDWCV 12.9 11.5 - 14.1 % [facility] MPV 11.7 7.6 - 12.9 fL [facility] nRBC % Auto 0.0 % [facility] nRBC Abs Auto 0.000 0.000 - 0.000 x10(3)/[facility] Blood 03/07/2022 5:08 AM EDT 03/07/2022 5:19 AM EDT Narrative Resulting Agency Comment Spec In Lab Nino Levy MD HEMATOLOGY ORDERABLE S Performing Organization Address City/[facility]/[place] [address] * Phosphorus (03/07/2022 5:08 AM EDT) Phosphorus 2.7 2.5 - 4.5 mg/dL [facility] Blood 03/07/2022 5:08 AM EDT 03/07/2022 5:19 AM EDT Narrative Resulting Agency Comment Spec In Lab Shania Will MD CHEMISTRY ORDERABLE S Performing Organization Address City/[facility]/ZIP Co de Phone Number [facility] [place] [address] * Magnesium (03/07/2022 5:08 AM EDT) Magnesium 0.89 0.69 - 1.07 mmol/L [facility] Blood 03/07/2022 5:08 AM EDT 03/07/2022 5:19 AM EDT Narrative Resulting Agency Comment Spec In Lab Shania Will MD CHEMISTRY ORDERABLE S [facility] [place] [address] * (ABNORMAL) Basic Metabolic Panel (non-fasting) (03/07/2022 5:08 AM EDT) Glucose Lvl 111 65 - 199 mg/dL [facility] Comment:Diabetes: >=200 mg/d L plus symptoms BUN 22(H) 8 - 18 mg/dL [facility] Creatinine 0.93 0.70 - 1.20 mg/dL [facility] Sodium 131(L) 135 - 145 mmol/L [facility] Potassium 4.5 3.5 - 5.0 mmol/L [facility] Comment: Please note: ??Patients with WBC >100,000 may have falsely elevated Potassium levels. ??For accurate Potassium quantification in these patients send serum separator tube (gold top) for subsequent determinations. ??Contact the Clinical Chemistry Laboratory if there are any questions. Chloride 100 98 - 107 mmol/L [facility] CO2 22 22 - 31 mmol/L [facility] Anion Gap 9 5 - 15 mmol/L [facility] Calcium 9.2 8.5 - 10.5 mg/dL [facility] Estimated GFR 64 >=60 mL/min/1. 73 m?? [facility] Comment: This patient's estimated [...] MD CHEMISTRY ORDERABLE S Performing Organization Address City/[facility]/ZIP Co de Phone Number [facility] [place] [address] * (ABNORMAL) Differential, Automated (03/06/2022 10:15 AM EDT) Neutrophils % 90.7 % [facility] Neutr Abs (ANC) 5.79 1.70 - 6.10 x10(3)/ L [facility] Lymphocytes % 5.0 % [facility] Lymphocytes Abs 0.3(L) 0.9 - 3.2 x10(3)/[facility] Monocytes % 3.8 % [facility] Monocyte Abs 0.2(L) 0.3 - 0.9 x10(3)/[facility] Eosinophils % 0.0 % [facility] Eosinophils Abs 0.0 0.0 - 0.4 x10(3)/[facility] Basophils % 0.0 % [facility] Basophils Abs 0.0 0.0 - 0.1 x10(3)/[facility] Immature Gran % 0.50 % [facility] Comment: Immature granulocytes(IG's)percentage and absolute count will include metamyelocytes, myelocytes, and promyelocytes. Blood smears from CBCs yielding IG's will be scanned manually for concordance. If this scan disagrees with the automated IG or if promyelocytes are noted, a manual differential will be performed. Elenita Gran Abs 0.03 0.00 - 0.04 x10(3)/ L [facility] Blood 03/06/2022 10:1 5 AM EDT 03/06/2022 10:21 AM EDT Narrative Resulting Agency Comment Spec In Lab Maryam MUELLER HEMATOLOGY ORDERABL ES Performing Organization Address [facility]/ZIP Co de Phone Number [facility] [place] [address] * (ABNORMAL) Hemogram (03/06/2022 10:15 AM EDT) WBC 6.4 4.0 - 9.5 x10(3)/[facility] RBC 3.07(L) 4.00 - 5.21 x10(6)/[facility] Hemoglobin 10.5(L) 11.7 - 15.5 g/dL [facility] Hematocrit 31.1(L) 35.7 - 45.8 % [facility] MCV 101.3(H) 82.6 - 94.4 fL [facility] MCH 34.2(H) 27.1 - 32.0 pg [facility] MCHC 33.8 31.7 - 35.0 g/dL [facility] Platelets 111(L) 145 - 357 x10(3)/[facility] RDWSD 47.2(H) 37.0 - 46.0 [facility] RDWCV 12.9 11.5 - 14.1 % [facility] MPV 11.5 7.6 - 12.9 fL [facility] nRBC % Auto 0.0 % [facility] nRBC Abs Auto 0.000 0.000 - 0.000 x10(3)/[facility] Blood 03/06/2022 10:1 5 AM EDT 03/06/2022 10:21 AM EDT Narrative Resulting Agency Comment Spec In Lab Maryam MUELLER HEMATOLOGY ORDERABL ES [facility] [place] [address] * Phosphorus (03/06/2022 10:15 AM EDT) Phosphorus 3.3 2.5 - 4.5 mg/dL [facility] Blood 03/06/2022 10:1 5 AM EDT 03/06/2022 10:21 AM EDT Narrative Resulting Agency Comment Spec In Lab Shania Will MD CHEMISTRY ORDERABLE S Performing Organization Address City/[facility]/ZIP Co de Phone Number [facility] [place] [address] * Magnesium (03/06/2022 10:15 AM EDT) Magnesium 0.69 0.69 - 1.07 mmol/L [facility] Blood 03/06/2022 10:1 5 AM EDT 03/06/2022 10:21 AM EDT Narrative Resulting Agency Comment Spec In Lab Shania Will MD CHEMISTRY ORDERABLE S Performing Organization Address [facility] Co de Phone Number [facility] [place] [address] * (ABNORMAL) Basic Metabolic Panel (non-fasting) (03/06/2022 10:15 AM EDT) Pathologist [facility] Glucose Lvl 155 65 - 199 mg/dL [facility] Comment:Diabetes: >=200 mg/d L plus symptoms BUN 29(H) 8 - 18 mg/dL [facility] Creatinine 1.25(H) 0.70 - 1.20 mg/dL [facility] Sodium 134(L) 135 - 145 mmol/L [facility] [...] 107 mmol/L [facility] CO2 23 22 - 31 mmol/L [facility] Anion Gap 10 5 - 15 mmol/L [facility] Calcium 8.9 8.5 - 10.5 mg/dL [facility] Estimated GFR 45(L) >=60 mL/min/1. 73 m?? [facility] Comment: This patient's estimated [...] Lab Shania Will MD CHEMISTRY ORDERABLE S [facility] [place] [address] * (ABNORMAL) Differential, Automated (03/06/2022 4:29 AM EDT) Neutrophils % 90.5 % [facility] Neutr Abs (ANC) 4.47 1.70 - 6.10 x10(3)/mc L [facility] Lymphocytes % 6.9 % [facility] Lymphocytes Abs 0.3(L) 0.9 - 3.2 x10(3)/mc L [facility] Monocytes % 2.2 % [facility] Monocyte Abs 0.1(L) 0.3 - 0.9 x10(3)/mc L [facility] Eosinophils % 0.0 % [facility] Eosinophils Abs 0.0 0.0 - 0.4 x10(3)/mc L [facility] Basophils % 0.2 % [facility] Basophils Abs 0.0 0.0 - 0.1 x10(3)/mc L [facility] Immature Gran % 0.20 % [facility] Comment: Immature granulocytes(IG's)percentage and absolute count will include metamyelocytes, myelocytes, and promyelocytes. Blood smears from CBCs yielding IG's will be scanned manually for concordance. If this scan disagrees with the automated IG or if promyelocytes are noted, a manual differential will be performed. Elenita Gran Abs 0.01 0.00 - 0.04 x10(3)/mc L [facility] Blood 03/06/2022 4:29 AM EDT 03/06/2022 4:49 AM EDT Narrative Resulting Agency Comment Spec In Lab Prakash Mendez MD HEMATOLOGY ORDERABLE S [facility] [place] [address] * (ABNORMAL) Hemogram (03/06/2022 4:29 AM EDT) WBC 4.9 4.0 - 9.5 x10(3)/[facility] RBC 3.08(L) 4.00 - 5.21 x10(6)/[facility] Hemoglobin 10.5(L) 11.7 - 15.5 g/dL [facility] Hematocrit 31.0(L) 35.7 - 45.8 % [facility] MCV 100.6(H) 82.6 - 94.4 fL [facility] MCH 34.1(H) 27.1 - 32.0 pg [facility] MCHC 33.9 31.7 - 35.0 g/dL [facility] Platelets 104(L) 145 - 357 x10(3)/[facility] RDWSD 47.5(H) 37.0 - 46.0 [facility] RDWCV 12.9 11.5 - 14.1 % [facility] MPV 11.8 7.6 - 12.9 [facility] nRBC % Auto 0.0 % [facility] nRBC Abs Auto 0.000 0.000 - 0.000 x10(3)/mcL [facility] Blood 03/06/2022 4:29 AM EDT 03/06/2022 4:49 AM EDT Narrative Resulting Agency Comment Spec In Lab Prakash Mendez MD HEMATOLOGY ORDERABLE S [facility] [place] [address] * (ABNORMAL) Basic Metabolic Panel (non-fasting) (03/06/2022 4:29 AM EDT) Glucose Lvl 140 65 - 199 mg/dL [facility] Comment:Diabetes: >=200 mg/d L plus symptoms BUN 31(H) 8 - 18 mg/dL [facility] Creatinine 1.32(H) 0.70 - 1.20 mg/dL [facility] Sodium 136 135 - 145 mmol/L [facility] Potassium 5.3(H) 3.5 - 5.0 mmol/L [facility] Comment: Please note: ??Patients with WBC >100,000 may have falsely elevated Potassium levels. ??For accurate Potassium quantification in these patients send serum separator tube (gold top) for subsequent determinations. ??Contact the Clinical Chemistry Laboratory if there are any questions. Chloride 103 98 - 107 mmol/L [facility] CO2 23 22 - 31 mmol/L [facility] Anion Gap 10 5 - 15 mmol/L [facility] Calcium 9.0 8.5 - 10.5 mg/dL [facility] Estimated GFR 42(L) >=60 mL/min/1. 73 m?? [facility] Comment: This patient's estimated [...] MD CHEMISTRY ORDERABLE S Performing Organization Address City/[facility] Co de Phone Number [facility] [place] [address] * POCT Glucose (03/05/2022 12:18 PM EDT) POC Glucose 94 65 - 199 mg/dL [facility] Comment: Supplemental ranges: <140 mg/dL before meals <180 mg/dL all other times of the day Blood 03/05/2022 12:1 8 PM EDT 03/05/2022 12:18 PM EDT Shania Will MD POINT OF CARE TEST ORDERABLES Performing Organization Address [facility] Co de Phone Number [facility] [place] [address] documented in this encounter Visit Diagnoses Not [...] (Intra-Procedure), Routine 1657 (Given - Provider: Prakash eMndez)1754 (Given - Provider: Prakash Mendez) ketorolac (Toradol) [...] Unit) documented in this encounter Care Teams Finisher Card Tender Relationship Specialty Start Date End Date Ana Her MD [facility] [address] [place] [address] PCP - General 07/29/13 documented as of this encounter
--- OUTSIDE RECORDS SUMMARY | 2023-11-18 22:11 | XMS_ITS | Encounter Summary ---
Author Organization [facility] [place] [address] Care Team Providers Care Barrel Cutter Name Role Phone Ana Her MD Primary Care Provider [phone] Encounter Details Date Type Department Care Team (Latest Contact Info) Description 04/03/2022 12:00 PM EST TH Visit (TeleHealth) [place] [address] Laura Will MD [facility] [place] [address] Status post repair of paraesophageal diaphragmatic hernia [...] status documented in this encounter Care Teams Barrel Cutter Relationship Specialty Start Date End Date Ana Her MD [facility] [address] [place] [address] PCP - General 07/29/13 documented as of this encounter
--- OUTSIDE RECORDS SUMMARY | 2023-11-18 22:11 | XMS_ITS | Encounter Summary ---
[place] [address] Care Team Providers Care Forestry Aid Name Role Phone Ana Her MD Primary Care Provider [phone] Encounter Details Date Type Department Care Team (Late st Contact Info) Description 02/26/2022 Orders Only [place] [address] Alicia Manning RN Social History Tobacco Use [...] on filedocumented in this encounter Care Teams Forestry Aid Relationship Specialty Start Date End Date Ana Her MD [address] [place] [address] PCP - General 07/29/13 documented as of this encounter
--- OUTSIDE RECORDS SUMMARY | 2023-11-18 22:11 | XMS_ITS | Encounter Summary ---
Author Organization [facility] [place] [address] Care Team Providers Care Osteopathy Doctor Name Role Phone Ana Her MD Primary Care Provider [phone] Reason for Visit * Consultation (Routine) - Closed Specialty Diagnoses / Procedures Referred By Christiano hackett Referred To Contact General Surgery Diagnoses Hiatal hernia Ana Her MD [address] [place] [address] [facility] Gen Surgery [address] [place] [address] Referral ID Status Reason Start Date Expiration Date V isits Requested Visits Authorized [id number] Closed Consult, Test & Treat 09/23/2021 09/23/2022 6 6 Encounter Details Date Type Department Care Team (Latest Contact Info) Description 12/05/2021 3:00 PM EDT Office [place] [address] Laura Will MD [facility] [place] [address] Paraesophageal hernia Social History Tobacco [...] of left breast of female, estrogen receptor [id number], Z17.0 ??? Anemia D64.9 ??? Aortic valve [...] 6.43) performed by Malika Chen MD at [facility] MAIN OR ??? PRO INTRAOP SENTINEL LYMPH ID W/DYE INJECTION Left 03/30/2017 INTRAOPERATIVE ID (MAPPING) SENTINEL LYMPH NODE,INCLUDES INJECTION (WRVU 2.5) performed by Malika Chen MD at [facility] MAIN OR ??? PRO MASTECTOMY PARTIAL Left 03/30/2017 MASTECTOMY PARTIAL (WRVU 10.13) performed by Malika Chen MD at [facility] MAIN OR Cholecystectomy Medications: Current Outpatient Medications: [...] gangrene documented in this encounter Care Teams Osteopathy Doctor Relationship Specialty Start Date End Date Ana Her MD [address] [place] [address] PCP - General 07/29/13 documented as of this encounter
--- OUTSIDE RECORDS SUMMARY | 2023-11-18 22:11 | XMS_ITS | Clinical Summary ---
Author Organization [facility] [place] [address] Care Team Providers Care Assistant Men'S Soccer Coach Name Role Phone Ana Her MD Primary Care Provider [phone] Allergies No known active allergies Medications Medication [...] the eliquis and has been managed by [facility]. She has remained in [place] over [...] and ECG with Dr. Ana Her in [place] in January She will discuss ECHO results with Dr. Burkett Cardiomyopathy, nonischemic 03/30/2018 Malignant neoplasm of lower- 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, estrogen receptor positive 02/25/2017 Cancer Staging:Clinical stage from 03/23/2017:Stage IA(T1a, N0, M0) - Signed by Med Mcgraw MD on 03/23/2017 Pathologic stage from 04/03/2017:Stage [...] - TT3 and FT4 nl - My ARC WELDING MACHINE OPERATOR colleague called and spoke with covering MD [...] history exists Medical Devices Implanted Type Area Operations Developer Device Identifier Shelf Expiration Date Model / Serial / Lot Breast Clip-02/26/20 17 Implanted: by Enzo Burkett MD (Quantity not on file) Breast Clip Left: Breast Bard - 0614 05/04/2019 SENOMARK ULTRACOR BREAST TISSUE MARKER ULTRASOUND ENHANCED BLANCA / / [id number] Description:BLANCA Procedures Procedure Name Priority Date/Time Associated [...] Osteopenia of neck of femur, unspecified laterality alf current 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 from Last [...] who have questions please contact the health career development associate that requested your imaging first. ? Jeanine [...] BMD measurements and plots are available in Zoomy under the imaging tab. Paper copies will be sent to providers without [employer] access. If you have received this report without the data sheet and do not have access to Zoomy, please contact Radiology Language Instructor at [phone] Thursday thru Thursday 8am-4pm. Thank you for letting us participate in the care of this patient. ??If you are a health care provider and have any questions regarding this report, please contact the number below. ??For patients who have questions please contact the health career development associate that requested your imaging first. ? Narrative 11/19/2020 1:09 PM EDT EXAMINATION: DXA [...] copies will be sent to providers without [employer]- access.If you have received this report without the data sheet and do not haveaccess to E-, please contact Radiology Language Instructor at [phone] Thursday thruFriday 8am-4pm. Thank you for letting us participate in the care of this patient. If youare a health care provider and have any questions regarding this report,please contact the number below. For patients who have questions please contactthe health career development associate that requested your imaging first. Ricky Lowry [...] Status decision made by: Patient Care Teams Assistant Men'S Soccer Coach Relationship Specialty Start Date End Date Ana Her MD [address] [place] [address] PCP - General 07/29/13
--- OUTSIDE RECORDS SUMMARY | 2023-11-18 22:11 | XMS_ITS | Encounter Summary ---
[place] [address] Care Team Providers Care Dish Technician Name Role Phone Ana Her MD Primary Care Provider [phone] Encounter Details Date Type Department Care Team (Late st Contact Info) Description 02/04/2022 12:00 PM EDT Notes [place] [address] Social History Tobacco Use Types Packs/Day Years [...] on filedocumented in this encounter Care Teams Dish Technician Relationship Specialty Start Date End Date Ana Her MD [address] [place] [address] PCP - General 07/29/13 documented as of this encounter
--- OUTSIDE RECORDS SUMMARY | 2023-11-18 22:11 | XMS_ITS | Encounter Summary ---
[place] [address] Care Team Providers Care Air Filler Name Role Phone Ana Her MD Primary Care Provider [phone] Encounter Details Date Type Department Care Team (Late st Contact Info) Description 02/03/2023 Telephone Hematology [place] [phone] Maryam Barrett Social History Tobacco Use Types [...] on filedocumented in this encounter Care Teams Air Filler Relationship Specialty Start Date End Date Ana Her MD [address] [place] [address] PCP - General 07/29/13 documented as of this encounter
--- OUTSIDE RECORDS SUMMARY | 2023-11-18 22:12 | XMS_ITS | Encounter Summary ---
Author Organization [facility], 1928–[address] [place] [address] Care Team Providers Care Wound Care Specialist Name Role Phone Ana Her MD Primary Care Provider [phone] Encounter Details Date Type Department Care Team (Late st Contact Info) Description 05/10/2018 1:10 PM EST - 05/10/2018 11:59 PM [facility] Hospital Encounter Mammography/[place] [phone] Hiral Padgett APRN [facility] [place] [address] Encounter for screening mammogram for breast cancer [...] cancer documented in this encounter Care Teams Wound Care Specialist Relationship Specialty Start Date End Date Ana Her MD [address] [place] [address] PCP - General 07/29/13 documented as of this encounter
--- OUTSIDE RECORDS SUMMARY | 2023-11-18 22:12 | XMS_ITS | Encounter Summary ---
Author Organization [facility] [place] [address] Care Team Providers Care Retail Business Development Manager Name Role Phone Ana Her MD Primary Care Provider [phone] Encounter Details Date Type Department Care Team (Late st Contact Info) Description 03/19/2017 Telephone [place] [phone] Malika Chen MD [facility] [place] [address] Social History Tobacco Use Types Packs/Day Years [...] no unexpected bleeding. [place] [facility] documented in this encounter Plan of Treatment Not on file documented as of this encounter Visit Diagnoses Not on filedocumented in this encounter Care Teams Retail Business Development Manager Relationship Specialty Start Date End Date Ana Her MD [address] [facility] 1 [place] [address] PCP - General 07/29/13 documented as of this encounter
--- OUTSIDE RECORDS SUMMARY | 2023-11-18 22:12 | XMS_ITS | Encounter Summary ---
Author Organization [facility] [place] [address] Care Team Providers Care Replenishment Analyst Name Role Phone Ana Her MD Primary Care Provider [phone] Encounter Details Date Type Department Care Team (Late st Contact Info) Description 03/30/2017 [place] [address] January Ward MSW Social History Tobacco Use [...] was recently diagnosed with invasive mucinous carcinoma. [facility] attempted to meet with pt in Same Day surgery this morning but she was still in radiology. I spoke with her ex-, Keith, who states she will be staying with him tondenise. Their granddaughters are traveling from [place] and plan to accompany pt to see her manual control auger press operator at [facility] tomorrow. Pt has been followed by this physician for her cardiac problems. [facility] will continue to provide support and resources to pt. documented in this encounter Plan of Treatment Not on file documented as of this encounter Visit Diagnoses Not on filedocumented in this encounter Care Teams Replenishment Analyst Relationship Specialty Start Date End Date Ana Her MD [address] [facility] 1 [place] [address] PCP - General 07/29/13 documented as of this encounter
--- OUTSIDE RECORDS SUMMARY | 2023-11-18 22:12 | XMS_ITS | Encounter Summary ---
Author Organization [facility] [place] [address] Care Team Providers Care Telegraphic Typewriter Mechanic Name Role Phone Ana Her MD Primary Care Provider [phone] Reason for Visit * Reason Comments Follow-up Encounter Details Date Type Department Care Team (Late st Contact Info) Description 11/29/2019 2:45 PM EDT Office Visit Hematology [place] [phone] Ricky Lowry MD [facility] [place]OLOGY[place] [address] Malignant neoplasm of lower-outer quadrant of left [...] cancer cells with immunostaining) Stain intensity: Strong [place] immunoreactivity: Positive (>90% cancer cells with immunostaining) [...] ??Excision with image-guided localization ?Lymph Node Sampling: ??[place] lymph node(s) ?Specimen Laterality: ??Left Tumor ?Histologic [...] ??DCIS not present in specimen Lymph Nodes ?[place] Lymph Nodes: [place] lymph node biopsy performed ?Number of [place] Nodes Examined: ??3 ?Number of Lymph Node(s) [...] positive documented in this encounter Care Teams Telegraphic Typewriter Mechanic Relationship Specialty Start Date End Date Ana Her MD [facility] [address] [facility] 1 [place] [address] PCP - General 07/29/13 documented as of this encounter
--- OUTSIDE RECORDS SUMMARY | 2023-11-18 22:12 | XMS_ITS | Encounter Summary ---
Author Organization [facility] [place] [address] Care Team Providers Care Painting Department Supervisor Name Role Phone Ana Her MD Primary Care Provider [phone] Encounter Details Date Type Department Care Team (Late st Contact Info) Description 10/23/2017 9:43 AM EDT - 10/23/2017 11:59 PM EDT Hospital [place] [phone] Hiral Padgett APRN [facility] [address] History of breast cancer Discharge Disposition: Home [...] seen in the left posterior breast. Hiral Padegtt APRN IMG MAMMO ORDERA BLES documented in this encounter Visit Diagnoses Diagnosis History of breast cancer Personal history of malignant neoplasm of breast documented in this encounter Care Teams Painting Department Supervisor Relationship Specialty Start Date End Date Ana Her MD [facility] [address] [place] [address] PCP - General 07/29/13 documented as of this encounter
--- OUTSIDE RECORDS SUMMARY | 2023-11-18 22:12 | XMS_ITS | Encounter Summary ---
[place] [address] Care Team Providers Care Vocal Teacher Name Role Phone Ana Her MD Primary Care Provider [phone] Encounter Details Date Type Department Care Team (Late st Contact Info) Description 04/09/2017 Abstract Radiation Oncology at [address] [phone] Maria A Antonio, RN Social History Tobacco [...] on filedocumented in this encounter Care Teams Vocal Teacher Relationship Specialty Start Date End Date Ana Her MD [address] [place] [address] PCP - General 07/29/13 documented as of this encounter
--- OUTSIDE RECORDS SUMMARY | 2023-11-18 22:12 | XMS_ITS | Encounter Summary ---
Author Organization [facility] [address] Care Team Providers Care Product Design Specialist Name Role Phone Ana Her MD Primary Care Provider [phone] Encounter Details Date Type Department Care Team (Late st Contact Info) Description 04/23/2017 Notes [place] [address] Marjorie Ariza Social History Tobacco Use Types [...] Marjorie Ariza - 04/23/2017 2:43 PM EST Manager Care Management Butt Trimmer met with pt after consultation with [...] on filedocumented in this encounter Care Teams Product Design Specialist Relationship Specialty Start Date End Date Ana Her MD [address] [facility] 1 [place] [address] PCP - General 07/29/13 documented as of this encounter
--- OUTSIDE RECORDS SUMMARY | 2023-11-18 22:12 | XMS_ITS | Encounter Summary ---
Author Organization [facility] [place] [address] Care Team Providers Care Inclinometer Tester Name Role Phone Ana Her MD Primary Care Provider [phone] Encounter Details Date Type Department Care Team (Latest Contact Info) Description 03/30/2017 8:30 AM EST Hospital [place] [address] Malika Chen MD [facility] [place] [address] Malignant neoplasm of upper-outer quadrant of left [...] documented in this encounter Results * Mammo [place] Node Injection (03/30/2017 9:01 AM EST) Anatomical [...] mCi documented in this encounter Care Teams Inclinometer Tester Relationship Specialty Start Date End Date Ana Her MD [address] [place] [address] PCP - General 07/29/13 documented as of this encounter
--- OUTSIDE RECORDS SUMMARY | 2023-11-18 22:12 | XMS_ITS | Encounter Summary ---
[place] [address] Care Team Providers Care Trading Assistant Name Role Phone Ana Her MD Primary Care Provider [phone] Encounter Details Date Type Department Care Team (Late st Contact Info) Description 03/30/2017 11:19 AM EST Anesthesia [place] [address] Bridgette Mclaughlin MD [facility] [place] [address] Laura Koo, CORRESPONDENCE SECTION SUPERVISOR [address] [place] [address] Anesthesia Record Procedure Summary Procedure Name Responsible [...] 0815; median cubital vein (antecubital fossa), right; [id number] catheter system; 20 gauge, 1 in length; 0; 03/30/17; 1338 03/30/17 0815 by Anna Coy RN 03/30/17 1338 by Suzi Burkett RN Supraglottic LMA Type: iGel; LMA Size: [...] Bridgette Mclaughlin - 03/30/2017 2:13 PM EST [facility] Department of Anesthesiology Post-procedure Note Patient: Digna Olson Procedure Summary Date Anesthesia Start Anesthesia Stop Room / Location 03/30/17 1119 1239 [facility] OR 24 / MH MAIN OR Procedure [...] All Anesthesia Providers: Anesthesiologist: Bridgette Mclaughlin MD CORRESPONDENCE SECTION SUPERVISOR: Laura Koo CRNA Most Recent Vitals: 03/30/17 [...] risks discussed with patient. Plan discussed with CORRESPONDENCE SECTION SUPERVISOR. PAT Staff Note documented in this encounter [...] r documented in this encounter Care Teams Trading Assistant Relationship Specialty Start Date End Date Ana Her MD [address] [place] [address] PCP - General 07/29/13 documented as of this encounter
--- OUTSIDE RECORDS SUMMARY | 2023-11-18 22:12 | XMS_ITS | Encounter Summary ---
Author Organization [facility] [place] [address] Care Team Providers Care Technology Applications Teacher Name Role Phone Ana Her MD Primary Care Provider [phone] Reason for Visit * Reason Comments Follow-up Encounter Details Date Type Department Care Team (Late st Contact Info) Description 11/15/2020 4:00 PM EDT Office Visit Hematology [place] [phone] Laura Joaquin PA [facility] GENERAL [place] [address] Malignant neoplasm of lower-outer quadrant of left [...] cancer cells with immunostaining) Stain intensity: Strong [place] immunoreactivity: Positive (>90% cancer cells with immunostaining) [...] ??Excision with image-guided localization ?Lymph Node Sampling: ??[place] lymph node(s) ?Specimen Laterality: ??Left Tumor ?Histologic [...] ??DCIS not present in specimen Lymph Nodes ?[place] Lymph Nodes: [place] lymph node biopsy performed ?Number of [place] Nodes Examined: ??3 ?Number of Lymph Node(s) [...] Spinal stenosis > A Fib. [place] [facility] S/P successful cardioversion May 2018. DEXA scan [...] Medical Oncology - Breast & GI Cancers [facility] Pager - [phone] documented in this encounter Plan of Treatment Not on file documented as of this encounter Visit Diagnoses Diagnosis 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, estrogen receptor positive documented in this encounter Care Teams Technology Applications Teacher Relationship Specialty Start Date End Date Ana Her MD [address] [place] [address] PCP - General 07/29/13 documented as of this encounter
--- OUTSIDE RECORDS SUMMARY | 2023-11-18 22:12 | XMS_ITS | Encounter Summary ---
Author Organization [facility] [place] [address] Care Team Providers Care Power Shovel Operator Helper Name Role Phone Ana Her MD Primary Care Provider [phone] Reason for Visit * Reason Comments Follow-up Encounter Details Date Type Department Care Team (Late st Contact Info) Description 10/23/2017 11:00 AM EDT Office Visit Hematology [place] [phone] Mayra Page APRN [facility] [address] Malignant neoplasm of lower-outer quadrant of left [...] this encounter Progress Notes * Mayra Page, EDUCATIONAL FUNDRAISING DIRECTOR - 10/23/2017 11:00 AM EDT Digna Olson [...] cancer cells with immunostaining) Stain intensity: Strong [place] immunoreactivity: Positive (>90% cancer cells with immunostaining) [...] ??Excision with image-guided localization ?Lymph Node Sampling: ??[place] lymph node(s) ?Specimen Laterality: ??Left Tumor [...] ??DCIS not present in specimen Lymph Nodes ?[place] Lymph Nodes: [place] lymph node biopsy performed ?Number of [place] Nodes Examined: ??3 ?Number of Lymph Node(s) Examined (sentinel and nonsentinel): 3 ?Lymph Node Involvement: None identified Stage (pTNM) ?Pathological Stage: ?? pT1b pN0 PMH: Past Medical History: Diagnosis Date ??? Breast cancer ??? Fracture of tibia 12/2016 left tibial plateau ??? GERD (gastroesophageal reflux disease) ??? H/O non-insulin dependent diabetes mellitus ??? Spinal stenosis Most recent DEXA scan was 10/28/16 at [facility]. There is no history of thromboembolic [...] positive documented in this encounter Care Teams Power Shovel Operator Helper Relationship Specialty Start Date End Date Ana Her MD [address] [place] [address] PCP - General 07/29/13 documented as of this encounter
--- OUTSIDE RECORDS SUMMARY | 2023-11-18 22:12 | XMS_ITS | Encounter Summary ---
[place] [address] Care Team Providers Care Ssds Mk 2 Advanced Operator Name Role Phone Ana Her MD Primary Care Provider [phone] Reason for Visit * Reason Comments Follow Up Surgery Encounter Details Date Type Department Care Team (Late st Contact Info) Description 07/13/2017 1:30 PM EDT Office [place] [address] Hiral Padgett APRN [facility] [place] [address] History of breast cancer Social History Tobacco [...] with image-guided localization ?Lymph Node Sampling: ?? [place] lymph node(s) ?Specimen Laterality: ?? Left Tumor [...] ?DCIS not present in specimen Lymph Nodes ?[place] Lymph Nodes: ?? [place] lymph node biopsy performed ?Number of [place] Nodes Examined: ?3 ?Number of Lymph Node(s) [...] breast documented in this encounter Care Teams Ssds Mk 2 Advanced Operator Relationship Specialty Start Date End Date Ana Her MD [address] [place] [address] PCP - General 07/29/13 documented as of this encounter
--- OUTSIDE RECORDS SUMMARY | 2023-11-18 22:12 | XMS_ITS | Encounter Summary ---
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 clerk current 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 Procedures DXA Central Spine, Hip, and/or Whole Body (Generic) Ricky Lowry MD [facility] HEMATOLOGY/[place] [address] [facility] Rad Xray [address] [place] [address] [place] [address] Referral ID Status Reason Start Date Expiration Date V isits Requested Visits Authorized [id number] Closed Specialty Service Requested 05/22/2020 11/19/2021 1 1 Encounter Details Date Type Department Care Team (Late st Contact Info) Description 05/22/2020 1:15 PM EST Office Visit Hematology [place] [address] Ricky Lowry MD [facility] [place] [address] 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, estrogen receptor positive; Osteopenia of neck of femur, unspecified laterality; correction current 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 Social History [...] ??Excision with image-guided localization ?Lymph Node Sampling: ??[place] lymph node(s) ?Specimen Laterality: ??Left Tumor ?Histologic [...] ??DCIS not present in specimen Lymph Nodes ?[place] Lymph Nodes: [place] lymph node biopsy performed ?Number of [place] Nodes Examined: ??3 ?Number of Lymph Node(s) [...] stenosis > A Fib. [place] [facility]P successful cardioversion May 2018. DEXA scan [...] BMD measurements and plots are available in [email or web address] under the imaging tab. Paper copies will be sent to providers without [email or web address] access. If you have received this report without the data sheet and do not have access to [email or web address], please contact Radiology Paddle Dyeing Machine Operator at [phone] Thursday thru Thursday 8am-4pm. Thank you for letting us participate in the care of this patient. ??If you are a health care provider and have any questions regarding this report, please contact the number below. ??For patients who have questions please contact the health child care attendant that requested your imaging first. ? Electronically signed by: Nat Epperson MD, [facility] ([phone]), at 11/19/2020 1:09 PM Narrative 11/19/2020 1:09 [...] copies will be sent to providers without [employer] access.If you have received this report without the data sheet and do not haveaccess to E-, please contact Radiology Paddle Dyeing Machine Operator at [phone] Thursday thruFriday 8am-4pm. Thank you for letting us participate in the care of this patient. If youare a health care provider and have any questions regarding this report,please contact the number below. For patients who have questions please contactthe health child care attendant that requested your imaging first. 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
--- OUTSIDE RECORDS SUMMARY | 2023-11-18 22:12 | XMS_ITS | Encounter Summary ---
Author Organization Formerly [facility] Address [facility] [place] [address] Care Team Providers Care Budget Analyst Name Role Phone Ana Her MD Primary Care Provider [phone] 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 * Diagnostic Test (Routine) - Closed Specialty Diagnoses / Procedures Referred By Contac t Referred To Contact Radiology Diagnoses 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, estrogen receptor positive Osteopenia of neck of femur, unspecified laterality care home current 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 Procedures DXA Central-Spine, Hip, And/Or Whole Body (Generic) Ricky Lowry MD [facility] HEMATOLOGY/[place] [address] [facility] Rad Xray [address] [place] [address] [place] [address] Referral ID Status Reason Start Date Expiration Date V isits Requested Visits Authorized [id number] Closed Specialty Service Requested 05/10/2018 05/10/2019 1 1 Reason for Visit * Diagnostic Test (Routine) - Closed Specialty Diagnoses / Procedures Referred By Contmary t Referred To Contact Radiology Diagnoses 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, estrogen receptor positive Osteopenia of neck of femur, unspecified laterality care home current 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 Procedures DXA Central-Spine, Hip, And/Or Whole Body (Generic) Ricky Lowry MD [facility] HEMATOLOGY/[place] [address] [facility] Rad Xray [address] [place] [address] [place] [address] Referral ID Status Reason Start Date Expiration Date V isits Requested Visits Authorized [id number] Closed Specialty Service Requested 05/10/2018 05/10/2019 1 1 Encounter Details Date Type Department Care Team (Latest Contact Info) Description 11/09/2018 1:03 PM EDT - 11/09/2018 11:59 PM EDT Hospital Encounter XRay at [address] [place] [address] Ricky Lowry MD [facility] HEMATOLOGY/[place] [address] 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, estrogen receptor positive; Osteopenia of neck of femur, unspecified laterality; exterminator termite current 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 Discharge Disposition: [...] Osteopenia of neck of femur, unspecified laterality exterminator termite current 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 documented in [...] BMD measurements and plots are available in [employer] under the imaging tab. Paper copies will be sent to providers without [employer] access. If you have received this report without the data sheet and do not have access to [employer], please contact Radiology Tractor Engine Assembler at [phone] Thursday thru Thursday 8am-4pm. Thank you for [...] BMD measurements and plots are available in [employer] the imaging tab. Paper copies will be sent to providers without [employer] access.If you have received this report without the data sheet and do not haveaccess to [employer], please contact Radiology Tractor Engine Assembler at [phone] Thursday thruFriday 8am-4pm. Thank you for letting us participate in the care of this patient. Forquestions regarding this report, please contact the number below. Electronically signed by: Khushi Hughes [facility] [place] ([phone]),at 11/10/2018 10:55 AM Ricky Lowry MD IMG DEXA ORDERABLES documented in this encounter Visit Diagnoses Diagnosis 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, estrogen receptor positive Osteopenia of neck of femur, unspecified laterality exterminator termite current 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 Use 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s documented in this encounter Care Teams Budget Analyst Relationship Specialty Start Date End Date Ana Her MD Geovany [address] [facility] [address] [place] [address] PCP - General 07/29/13 documented as of this encounter
--- OUTSIDE RECORDS SUMMARY | 2023-11-18 22:12 | XMS_ITS | Encounter Summary ---
[place] [address] Care Team Providers Care Branch Service Specialist Name Role Phone Ana Her MD Primary Care Provider [phone] Encounter Details Date Type Department Care Team (Late st Contact Info) Description 05/06/2017 Telephone Radiation Oncology at [address] [address] Maria A Antonio RN Social [...] on filedocumented in this encounter Care Teams Branch Service Specialist Relationship Specialty Start Date End Date Ana Her MD [address] [facility] 1 [place] [address] PCP - General 07/29/13 documented as of this encounter
--- OUTSIDE RECORDS SUMMARY | 2023-11-18 22:12 | XMS_ITS | Encounter Summary ---
[place] [address] Care Team Providers Care Artist Agent Name Role Phone Ana Her MD Primary Care Provider [phone] Encounter Details Date Type Department Care Team (Latest Contact Info) Description 03/30/2017 7:27 AM EST - 03/30/2017 1:37 PM EST Hospital Encounter [place] [phone] Brant Chen MD [facility] [place] [address] Discharge Disposition: Home Social History Tobacco Use [...] shower 24 hours Activity as tolerated Call [phone] with any questions Do not soak incision [...] was obtained which revealed IDC which is ER/[place]+, her2-. She has no known breast masses, no adenopathy, no nipple discharge. ?? Alma Delia had a bone scan in [place] which was read as possible metastasis in the left tibia. Of note- she fractured this area recently. She has recovered well. ?? PMH HNT NIDDM not on meds Spinal stenosis Fractured left tibial plateau December, GERD ?? FH: Maternal first cousin with breast cancer Brother with rectal cancer Sister with PE ? SH: lives alone. Has good support from sisters who live in [place]. Non smoker. 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 No [...] Chen MD - 03/30/2017 12:27 PM EST [facility] Operative Note Patient Name: Digna Olson : [id number] MR#: [id number] Case Date: 03/30/2017 Surgeon: Surgeon(s) and Role: [...] [place] [address]. Remaining count within the axilla was 1982. [...] PM EST 03/30/2017 12:09 PM EST Narrative [facility] - 03/30/2017 12:09 PM EST Specimen requisition ordered. ??Separate Pathology report to follow Brant Chen MD PATHOLOGY/CYTOLOGY ORDERABLES [facility] [place] [address] * Specimen to Pathology (surgical or derm) (03/30/2017 12:08 PM EST) AP Specimen 03/30/2017 12:0 8 PM EST 03/30/2017 12:08 PM EST Narrative [facility] - 03/30/2017 12:08 PM EST Specimen requisition ordered. ??Separate Pathology report to follow Brant Chen MD PATHOLOGY/CYTOLOGY ORDERABLES Performing Organization Address [facility] Co de Phone Number [facility] [place] [address] * Specimen to Pathology (surgical or derm) (03/30/2017 12:00 PM EST) AP Specimen 03/30/2017 12:0 0 PM EST 03/30/2017 12:00 PM EST Narrative [facility] - 03/30/2017 12:00 PM EST Specimen requisition ordered. ??Separate Pathology report to follow Brant Chen MD PATHOLOGY/CYTOLOGY ORDERABLES Performing Organization Address [facility] [place] [address] * Specimen to Pathology (surgical or derm) (03/30/2017 11:51 AM EST) AP Specimen 03/30/2017 11:5 1 AM EST 03/30/2017 11:51 AM EST Narrative [facility] - 03/30/2017 11:51 AM EST Specimen requisition ordered. ??Separate Pathology report to follow Brant Chen MD PATHOLOGY/CYTOLOGY ORDERABLES Performing Organization Address [facility] de Phone Number [facility] [place] [address] * Surgical Pathology Report (03/30/2017 11:50 AM EST) Surgical Pathology Report [id number] ? Location: [facility]; [facility]; A The signing pathologist has (i) examined the relevant preparation(s) for the specimen(s) and (ii) rendered or confirmed the diagnosis(es). . ?Surgical Pathology DIAGNOSIS A,B - See Synoptic C - Left breast, Deep/lateral margin re-excision - ?Benign fatty breast tissue. D - Left breast, Superficial margin re-excision - ?Benign fatty breast tissue. See Note Note - Empire ink (indicating additional cranial margin) is also present on this superficial margin re-excision. ---- Specimen Parts: ?? A - Left axilliary sentinel node B - Left breast partial mastectomy Specimen ? Procedure: ??Excision with image-guided localization ? Lymph Node Sampling: ?? [place] lymph node(s) ? Specimen Laterality: ?? Left [...] not present in specimen Lymph Nodes ? [place] Lymph Nodes: ?? [place] lymph node biopsy performed ? Number of [place] Nodes Examined: ?3 ? Number of Lymph [...] Chávez DO Verified: ??04/01/2017 ?Pathologist Performed at: ??-[facility] Dept. of Pathology, [place], [place] CLINICAL INFORMATION Specimen Submitted: A - [...] and there are ??no close margins. per [facility] Radiology . Specimen Description: According to [...] 0.8 x 0.4 x 0.4 cm. Color: [place] and yellow. Consistency: Soft. Location: Slices III and IV. Nearest Margin: 0.6 cm to the cranial margin. Other Margins: 0.8 cm to the deep margin, 1.0 cm to the superficial margin, ? > 2 cm from all other margins. OTHER Parenchyma: Predominately fatty with scant fibrous tissue. Wire/Clip: Biopsy marker clip identified within slice IV. SECTIONS/PROCESSI NG: (1) telephone service representative slice I, lateral margin; (2) slice III, lesion to cranial margin; (3-5) remainder of slice III; (6) slice IV, lesion to cranial margin (clip); (7-8) remainder of slice IV; (9) telephone service representative slice V; (10) telephone service representative slice X, medial margin. (R10) Ischemic [...] aspect. Sections/Processi ng: Serially sectioned. (T3) ??sns [facility] 03/30/2017 11:5 0 AM EST Brant Chen MD PATHOLOGY/CYTOLOGY ORDERABLES [facility] [place] [address] * Mammo Direct Digital Left (03/30/2017 9:15 [...] Routine documented in this encounter Care Teams Artist Agent Relationship Specialty Start Date End Date Ana Her MD [address] [place] [address] PCP - General 07/29/13 documented as of this encounter
--- OUTSIDE RECORDS SUMMARY | 2023-11-18 22:12 | XMS_ITS | Encounter Summary ---
Author Organization [facility] [place] [address] Care Team Providers Care Manager Of Health Name Role Phone Ana Her MD Primary Care Provider [phone] Encounter Details Date Type Department Care Team (Late st Contact Info) Description 05/31/2019 1:00 PM EST Office [place] [address] Jeanine Lobato, DORR OPERATOR [facility] [place] [address] Encounter for follow-up surveillance of breast cancer; [...] was obtained which revealed IDC which is ER/[place]+, Her2-. She hasno known breast masses, no adenopathy, no nipple discharge. 02/25/17 Needle biopsies Left breast: Diagnosis: Invasive mucinous carcinoma ? Intermediate grade, modified SBR score = 6 Microcalcifications:??Few calcifications associated with invasive carcinoma ER immunoreactivity: Positive NC immunoreactivity: Positive HER2 FISH: Negative for amplification [...] herex- speak almost daily. He lives in [place]. She enjoys reading and cooking. She does [...] situation. Results: Imaging performed (bilateral mammogram) at [facility] today shows no evidence of malignancy, BIRADS [...] symptoms. Jeanine Lobato APRN Surgical Oncology P [phone] F [phone] [facility] documented in this encounter Plan of [...] mammogram documented in this encounter Care Teams Manager Of Health Relationship Specialty Start Date End Date Ana Her MD [facility] [address] [facility] 1 [place] [address] PCP - General 07/29/13 documented as of this encounter
--- OUTSIDE RECORDS SUMMARY | 2023-11-18 22:12 | XMS_ITS | Encounter Summary ---
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 Procedures DXA Central-Spine, Hip, And/Or Whole Body (Generic) Ricky Lowry MD [facility] HEMATOLOGY/[place] [address] [facility] Rad Xray [address] [place] [address] [place] [address] Referral ID Status Reason Start Date Expiration Date V isits Requested Visits Authorized [id number] Closed Specialty Service Requested 05/10/2018 05/10/2019 1 1 Reason for Visit * Reason Comments Follow-up Encounter Details Date Type Department Care Team (Late st Contact Info) Description 05/10/2018 2:45 PM EST Office Visit Hematology [place] [address] Ricky Lowry MD [facility] [place] [address] 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, estrogen receptor positive; Osteopenia of neck of femur, unspecified laterality; jail current 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 Social History [...] cancer cells with immunostaining) Stain intensity: Strong RI immunoreactivity: Positive (>90% cancer cells with immunostaining) [...] ??Excision with image-guided localization ?Lymph Node Sampling: ??[place] lymph node(s) ?Specimen Laterality: ??Left Tumor ?Histologic [...] ??DCIS not present in specimen Lymph Nodes ?[place] Lymph Nodes: [place] lymph node biopsy performed ?Number of [place] Nodes Examined: ??3 ?Number of Lymph Node(s) [...] Spinal stenosis > A Fib. Cardiology at [facility]. Most [facility] scan [facility] at [facility]. There is no history of thromboembolic events. [...] is planned for later this week (at [facility]/[place]). No new problems with VELEZ, diplopia, cough, [...] chemotherapy. TACHO. Renewal of anastrazole sent. Given [facility] brochure to share with cousins. All questions [...] BMD measurements and plots are available in [employer] under the imaging tab. Paper copies will be sent to providers without [employer] access. If you have received this report without the data sheet and do not have access to [employer], please contact Radiology [facility] at [phone] Thursday thru Thursday 8am-4pm. Thank you for letting us participate in the care of this patient. For questions regarding this report, please contact the number below. ? Electronically signed by: Khushi Hughes [facility] ([phone]), at 11/10/2018 10:55 AM Narrative 11/10/2018 10:55 [...] a diagnostic region of interest: T-score: -1.0, LEILNAI: Left femoral neck, WHO diagnosis: Normal bonemineral [...] BMD measurements and plots are available in [employer] tab. Paper copies will be sent to providers without [employer] access.If you have received this report without the data sheet and do not haveaccess to [employer], please contact Radiology [facility] at [phone] Thursday thruFriday 8am-4pm. Thank you for letting us participate in the care of this patient. Forquestions regarding this report, please contact the number below. 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
--- OUTSIDE RECORDS SUMMARY | 2023-11-18 22:12 | XMS_ITS | Encounter Summary ---
Author Organization [facility] [place] [address] Care Team Providers Care Audit Consultant Name Role Phone Ana Her MD Primary Care Provider [phone] Encounter Details Date Type Department Care Team (Late st Contact Info) Description 03/04/2017 Orders [place] [address] Malika Chen MD [facility] [place] [address] Malignant neoplasm of upper-outer quadrant of left [...] MD IMG MAMMO ORDERABLE S * Mammo [place] Node Injection (03/30/2017 9:01 AM EST) Anatomical [...] positive documented in this encounter Care Teams Audit Consultant Relationship Specialty Start Date End Date Ana Her MD [address] [facility] 1 [place] [address] PCP - General 07/29/13 documented as of this encounter
--- OUTSIDE RECORDS SUMMARY | 2023-11-18 22:12 | XMS_ITS | Encounter Summary ---
[place] [address] Care Team Providers Care Sand Sifter Name Role Phone Ana Her MD Primary Care Provider [phone] Reason for Visit * Reason Comments Follow-up Encounter Details Date Type Department Care Team (Late st Contact Info) Description 05/22/2020 11:40 AM EST Office [place] [address] Jeanine Lobato APRN [facility] [place] [address] Encounter for follow-up surveillance of breast cancer; [...] was obtained which revealed IDC which is ER/[place] positive, Her2 negative. Alma Delia opted against [...] ??Excision with image-guided localization ?Lymph Node Sampling: ??[place] lymph node(s) ?Specimen Laterality: ??Left Tumor ?Histologic [...] ??DCIS not present in specimen Lymph Nodes ?[place] Lymph Nodes: [place] lymph node biopsy performed ?Number of [place] Nodes Examined: ??3 ?Number of Lymph Node(s) [...] herex- speak almost daily. He lives in [place] and is beginning to show early signs [...] situation. Results: Imaging performed (bilateral mammogram) at [facility] today shows no [...] available at [employer] and [employer]. All questions were answered to the patient's satisfaction and they state understanding and agreement with today's treatment plan. They are encouraged to follow up sooner if they develop any new or concerning symptoms. Jeanine Lobato APRN Surgical Oncology P [phone] F [phone] [facility] documented in this encounter Plan of [...] have questions please contact the health career services assistant that requested your imaging first. ? Electronically signed by: Digna Noel MD, [facility] ([phone]), at 06/11/2021 9:20 AM Jeanine Lobato APRN IMG MAMMO ORD ERABLES [...] mammogram documented in this encounter Care Teams Sand Sifter Relationship Specialty Start Date End Date Ana Her MD [facility] [address] [place] [address] PCP - General 07/29/13 documented as of this encounter
--- OUTSIDE RECORDS SUMMARY | 2023-11-18 22:12 | XMS_ITS | Encounter Summary ---
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 Cardiology at [facility]. S/P successful cardioversion May 2018. DEXA scan [...] on RA Breasts: deferred (examined by surgery SLEEVE SEWER today) Neuro: grossly nonfocal. Results: Last DXA [...] Medical Oncology - Breast & GI Cancers [facility] Pager - [phone] No future appointments. documented in this encounter Plan of Treatment Not on file documented as of this encounter Visit Diagnoses Diagnosis 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, estrogen receptor positive [facility] current 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 Use 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s documented in this encounter Care Teams Pricer Bagger Relationship Specialty Start Date End Date Ana Her MD [address] [place] [address] PCP - General 07/29/13 documented as of this encounter
--- OUTSIDE RECORDS SUMMARY | 2023-11-18 22:12 | XMS_ITS | Encounter Summary ---
Author Organization [facility] [place] [address] Care Team Providers Care Steward/Stewardess Smoke Room Name Role Phone Ana Her MD Primary Care Provider [phone] Encounter Details Date Type Department Care Team (Latest Contact Info) Description 05/22/2020 10:46 AM EST - 05/22/2020 11:59 PM [facility] Encounter Mammography/[place] [address] Jeanine Lobato APRN [facility] [address] Malignant neoplasm of lower-outer quadrant of left [...] mammogram documented in this encounter Care Teams Steward/Stewardess Smoke Room Relationship Specialty Start Date End Date Ana Her MD [address] [place] [address] PCP - General 07/29/13 documented as of this encounter
--- OUTSIDE RECORDS SUMMARY | 2023-11-18 22:12 | XMS_ITS | Encounter Summary ---
Author Organization [facility] [place] [address] Care Team Providers Care Grounds Keeper Name Role Phone Ana Her MD Primary Care Provider [phone] Reason for Visit * Reason Comments Follow-up Encounter Details Date Type Department Care Team (Late st Contact Info) Description 05/31/2019 11:45 AM EST Office Visit Hematology [place] [phone] Ricky Lowry MD [facility] HEMATOLOGY[place] [address] Malignant neoplasm of lower-outer quadrant of left [...] cancer cells with immunostaining) Stain intensity: Strong [place] immunoreactivity: Positive (>90% cancer cells with immunostaining) [...] ??Excision with image-guided localization ?Lymph Node Sampling: ??[place] lymph node(s) ?Specimen Laterality: ??Left Tumor ?Histologic [...] ??DCIS not present in specimen Lymph Nodes ?[place] Lymph Nodes: [place] lymph node biopsy performed ?Number of [place] Nodes Examined: ??3 ?Number of Lymph Node(s) [...] stenosis > A Fib. Cardiology at [facility]. S/P successful cardioversion May 2018. DEXA scan [...] positive documented in this encounter Care Teams Grounds Keeper Relationship Specialty Start Date End Date Ana Her MD [address] [place] [address] PCP - General 07/29/13 documented as of this encounter
--- OUTSIDE RECORDS SUMMARY | 2023-11-18 22:12 | XMS_ITS | Encounter Summary ---
[place] [address] Care Team Providers Care Machine Tool Technology Instructor Name Role Phone Ana Her MD Primary Care Provider [phone] 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 * Consultation (Routine) - Closed Specialty Diagnoses / Procedures Referred By Christiano hackett Referred To Contact General Surgery Diagnoses Hiatal hernia Ana Her MD [address] [place] [address] [facility] [address] [place] [phone] Referral ID Status Reason Start Date Expiration Date V isits Requested Visits Authorized [id number] Closed Consult, Test & Treat 09/23/2021 09/23/2022 6 6 Encounter Details Date Type Department Care Team (Late st Contact Info) Description 09/23/2021 Transcribe Orders eDH Incoming Referrals [phone] Ana Her MD [address] [place] [address] Hiatal hernia Social History Tobacco [...] gangrene documented in this encounter Care Teams Machine Tool Technology Instructor Relationship Specialty Start Date End Date Ana Her MD [address] [place] [address] PCP - General 07/29/13 documented as of this encounter
--- OUTSIDE RECORDS SUMMARY | 2023-11-18 22:12 | XMS_ITS | Encounter Summary ---
[place] [address] Care Team Providers Care Telesales Advisor Name Role Phone Ana Her MD Primary Care Provider [phone] Encounter Details Date Type Department Care Team (Late st Contact Info) Description 04/05/2018 Telephone [place] [phone] Adrianna Jones Social History Tobacco Use Types [...] Padgett. Patient advises she is admitted at [facility] for afib and is pending procedure etc. Patient will call to reschedule once she is discharged home. documented in this encounter Plan of Treatment Not on file documented as of this encounter Visit Diagnoses Not on filedocumented in this encounter Care Teams Telesales Advisor Relationship Specialty Start Date End Date Ana Her MD [address] [place] [address] PCP - General 07/29/13 documented as of this encounter
--- OUTSIDE RECORDS SUMMARY | 2023-11-18 22:12 | XMS_ITS | Encounter Summary ---
Author Organization [facility] [place] [address] Care Team Providers Care Funeral Pre Need Consultant Name Role Phone Ana Her MD Primary Care Provider [phone] Encounter Details Date Type Department Care Team (Latest Contact Info) Description 03/30/2017 8:30 AM EST Hospital [place] [address] Malika Chen MD [facility] [place] [address] Malignant neoplasm of upper-outer quadrant of left [...] positive documented in this encounter Care Teams Funeral Pre Need Consultant Relationship Specialty Start Date End Date Ana Her MD [address] [place] [address] PCP - General 07/29/13 documented as of this encounter
--- OUTSIDE RECORDS SUMMARY | 2023-11-18 22:12 | XMS_ITS | Encounter Summary ---
Author Organization [facility] [place] [address] Care Team Providers Care Forest Fire Fighter Name Role Phone Ana Her MD Primary Care Provider [phone] Encounter Details Date Type Department Care Team (Late st Contact Info) Description 09/03/2021 Ancillary Procedure [place] [address] Laura Will MD [facility] [place] [address] Social History Tobacco Use Types Packs/Day Years [...] CT Chest (09/03/2021 12:00 AM EDT) Narrative [facility] - 11/28/2021 1:22 PM EDT This exam is auto-finalizing. It's purpose is for storage only. Laura Will MD IMG FILM LIBRARY OR DERABLES [place], [place] documented in this encounter Visit Diagnoses Not on filedocumented in this encounter Care Teams Forest Fire Fighter Relationship Specialty Start Date End Date Ana Her MD [facility] [address] [place] [address] PCP - General 07/29/13 documented as of this encounter
--- OUTSIDE RECORDS SUMMARY | 2023-11-18 22:12 | XMS_ITS | Encounter Summary ---
[place] [address] Care Team Providers Care Business Lawyer Name Role Phone Ana Her MD Primary Care Provider [phone] 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 * Consultation (Routine) - Closed Specialty Diagnoses / Procedures Referred By Christiano hackett Referred To Contact Plastic Surgery Diagnoses 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, estrogen receptor positive Macromastia Jeanine Lobato APRN [facility] [place] [address] [facility] Plastic Surg [address] [place] [address] Referral ID Status Reason Start Date Expiration Date V isits Requested Visits Authorized [id number] Closed Consult, Test & Treat 06/11/2021 06/11/2022 1 1 Encounter Details Date Type Department Care Team (Late st Contact Info) Description 06/11/2021 10:00 AM EST Office [place] [address] Jeanine Lobato APRN [facility] [place] [place] [address] Encounter for follow-up surveillance of [...] this encounter Progress Notes * Jeanine Lobato, PHARMACY GRADUATE INTERN - 06/11/2021 10:00 AM EST Images from [...] was obtained which revealed IDC which is ER/MA positive, Her2 negative. Alma Delia opted against [...] mm Grade Intermediate Margins Negative ER Positive MA Positive HER-2 Negative OncotypeDx Recurrence Score N/A [...] Family history of ovarian cancer No Ashkenazi Gnosticist heritage No Known genetic mutation Not tested [...] to speak almost daily. He lives in [place] and is beginning to show early signs [...] situation. Results: Imaging performed (bilateral mammogram) at [facility] today shows no evidence of malignancy, BIRADS [...] free apps for your cell phone from [employer] ([employer]) and am[employer]im ([employer]). All questions were answered to the patient's satisfaction and they state understanding and agreement with today's treatment plan. They are encouraged to follow up sooner if they develop any new or concerning symptoms. Jeanine Lobato APRN Surgical Oncology P [phone] F [phone] [facility] documented in this encounter Plan of Treatment [...] breast documented in this encounter Care Teams Business Lawyer Relationship Specialty Start Date End Date Ana Her MD [address] [facility] [place] [address] PCP - General 07/29/13 documented as of this encounter
--- OUTSIDE RECORDS SUMMARY | 2023-11-18 22:12 | XMS_ITS | Encounter Summary ---
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 Procedures DXA Central Spine, Hip, and/or Whole Body (Generic) Ricky Lowry MD [facility] HEMATOLOGY/[place] [address] [facility] Rad Xray [address] [place] [address] [place] [address] Referral ID Status Reason Start Date Expiration Date V isits Requested Visits Authorized [id number] Closed Specialty Service Requested 05/22/2020 11/19/2021 1 1 Reason for Visit * Diagnostic Test (Routine) - Closed Specialty Diagnoses / Procedures Referred By Contac t Referred To Contact Radiology Diagnoses 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, estrogen receptor positive Osteopenia of neck of femur, unspecified laterality 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 Procedures DXA Central Spine, Hip, and/or Whole Body (Generic) Ricky Lowry MD [facility] HEMATOLOGY/[place] [address] [facility] Rad Xray [address] [place] [address] [place] [id number] Referral ID Status Reason Start Date Expiration Date V isits Requested Visits Authorized [id number] Closed Specialty Service Requested 05/22/2020 11/19/2021 1 1 Encounter Details Date Type Department Care Team (Latest Contact Info) Description 11/15/2020 2:25 PM EDT - 11/15/2020 11:59 PM EDT Hospital Encounter XRay at [address] [place] [id number] Ricky Lowry MD [facility] HEMATOLOGY/[place] [address] 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, estrogen receptor positive; Osteopenia of neck of femur, unspecified laterality; 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 If you have received this report without the data sheet and do not have access to [employer], please contact Radiology [facility] at [phone] Thursday thru Thursday 8am-4pm. Thank you for letting us participate in the care of this patient. ??If you are a health care provider and have any questions regarding this report, please contact the number below. ??For patients who have questions please contact the health hospice home care coordinator that requested your imaging first. ? Electronically signed by: Nat Epperson MD, [facility] ([phone]), at 11/19/2020 1:09 PM Narrative 11/19/2020 1:09 [...] BMD measurements and plots are available in EBioformixunder the imaging tab. Paper copies will be sent to providers without [employer] access.If you have received this report without the data sheet and do not haveaccess to [employer], please contact Radiology Chief Technician at [phone] Thursday thr 8am-4pm. Thank you for letting us participate in the care of this patient. If youare a health care provider and have any questions regarding this report,please contact the number below. For patients who have questions please contactthe health hospice home care coordinator that requested your imaging first. 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
--- OUTSIDE RECORDS SUMMARY | 2023-11-18 22:12 | XMS_ITS | Encounter Summary ---
Author Organization [facility] [place] [address] Care Team Providers Care Tapping Machine Operator Automatic Name Role Phone Ana Her MD Primary Care Provider [phone] Encounter Details Date Type Department Care Team (Late st Contact Info) Description 05/10/2018 2:15 PM EST Office [place] [address] Hiral Padgett BEHAVIOR ANALYST [facility] [place] [address] History of breast cancer Social History Tobacco [...] with image-guided localization ?Lymph Node Sampling: ?? [place] lymph node(s) ?Specimen Laterality: ?? Left Tumor [...] ?DCIS not present in specimen Lymph Nodes ?[place] Lymph Nodes: ?? [place] lymph node biopsy performed ?Number of [place] Nodes Examined: ?3 ?Number of Lymph Node(s) [...] mammogram today is cat 2. Leaving for [place] later today for a cardiac ablation/a fib at [facility]. Objective: Physical Exam Constitutional: She is oriented [...] breast documented in this encounter Care Teams Tapping Machine Operator Automatic Relationship Specialty Start Date End Date Ana Her MD [address] [place] [address] PCP - General 07/29/13 documented as of this encounter
--- OUTSIDE RECORDS SUMMARY | 2023-11-18 22:12 | XMS_ITS | Encounter Summary ---
Author Organization [facility] [place] [address] Care Team Providers Care Manager Coding Name Role Phone Ana Her MD Primary Care Provider [phone] Encounter Details Date Type Department Care Team (Late st Contact Info) Description 11/09/2018 2:45 PM EDT Office Visit Hematology [place] [address] Ricky Lowry MD [facility] HEMATOLOGY/[place] [address] Malignant neoplasm of lower-outer quadrant of left [...] ??Excision with image-guided localization ?Lymph Node Sampling: ??[place] lymph node(s) ?Specimen Laterality: ??Left Tumor ?Histologic [...] ??DCIS not present in specimen Lymph Nodes ?[place] Lymph Nodes: [place] lymph node biopsy performed ?Number of [place] Nodes Examined: ??3 ?Number of Lymph Node(s) [...] > A Fib. Cardiology at [facility]. S/P successful cardioversion May 2018. DEXA scan [...] laterality documented in this encounter Care Teams Manager Coding Relationship Specialty Start Date End Date Ana Her MD [address] [facility] [place] [address] PCP - General 07/29/13 documented as of this encounter
--- OUTSIDE RECORDS SUMMARY | 2023-11-18 22:12 | XMS_ITS | Encounter Summary ---
Author Organization [facility] [place] [address] Care Team Providers Care Pier Hand Helper Name Role Phone Ana Her MD Primary Care Provider [phone] Reason for Visit * Reason Comments Schedule Office Case Encounter Details Date Type Department Care Team (Late st Contact Info) Description 04/23/2017 2:00 PM EST Office Visit Hematology [place] [address] Ricky Lowry MD [facility] [place]EMATOLOGY[place] [address] Malignant neoplasm of lower-outer quadrant of left [...] ??Excision with image-guided localization ?Lymph Node Sampling: ??[place] lymph node(s) ?Specimen Laterality: ??Left Tumor ?Histologic [...] ??DCIS not present in specimen Lymph Nodes ?[place] Lymph Nodes: [place] lymph node biopsy performed ?Number of [place] Nodes Examined: ??3 ?Number of Lymph Node(s) [...] DEXA scan was in this year at [facility]. There is no history of thromboembolic events. [...] positive documented in this encounter Care Teams Pier Hand Helper Relationship Specialty Start Date End Date Ana Her MD [address] [place] [address] PCP - General 07/29/13 documented as of this encounter
--- OUTSIDE RECORDS SUMMARY | 2023-11-18 22:12 | XMS_ITS | Encounter Summary ---
Author Organization [place] [address] Care Team Providers Care Strapper Name Role Phone Ana Her MD Primary Care Provider [phone] Encounter Details Date Type Department Care Team (Latest Contact Info) Description 03/30/2017 8:30 AM EST Hospital [place] [address] Malika Chen MD [facility] [place] [address] Malignant neoplasm of upper-outer quadrant of left [...] mg documented in this encounter Care Teams Strapper Relationship Specialty Start Date End Date Ana Her MD [address] [place] [address] PCP - General 07/29/13 documented as of this encounter
--- OUTSIDE RECORDS SUMMARY | 2023-11-18 22:12 | XMS_ITS | Encounter Summary ---
[place] [address] Care Team Providers Care Toolmaker Grade Three Name Role Phone Ana Her MD Primary Care Provider [phone] Encounter Details Date Type Department Care Team (Late st Contact Info) Description 06/12/2021 Telephone [place] [address] Chelsie Lauren Social History Tobacco Use Types [...] on filedocumented in this encounter Care Teams Toolmaker Grade Three Relationship Specialty Start Date End Date Ana Her MD [address] [place] [address] PCP - General 07/29/13 documented as of this encounter
--- OUTSIDE RECORDS SUMMARY | 2023-11-18 22:12 | XMS_ITS | Encounter Summary ---
[place] [address] Care Team Providers Care Page Technician Name Role Phone Ana Her MD Primary Care Provider [phone] Encounter Details Date Type Department Care Team (Late st Contact Info) Description 03/18/2017 Telephone [place] [address] Bryanna Marsh RN Social History Tobacco Use [...] notes she had a colonoscopy done at [facility] and developed atrial fibrillation; she has been started on blood thinners. She was just discharged from the [facility] hospital, and called us [...] give Digna a call her number is [phone]. The below is from Dr. Chen visit with Digna. Assessment and Plan: ?? 71 yo female with radiographic stage I ER/FL+, HER2- IDC of the left breast. No [...] on filedocumented in this encounter Care Teams Page Technician Relationship Specialty Start Date End Date Ana Her MD [address] [place] [address] PCP - General 07/29/13 documented as of this encounter
--- OUTSIDE RECORDS SUMMARY | 2023-11-18 22:12 | XMS_ITS | Encounter Summary ---
Author Organization [facility] Address [facility] [place] [address] Care Team Providers Care Assigner Name Role Phone Ana Her MD Primary Care Provider [phone] Reason for Visit * Reason Comments Radiation Consult * Consultation (Routine) - Closed Specialty Diagnoses / Procedures Referred By Christiano hackett Referred To Contact Radiation Oncology Diagnoses Breast cancer Malika Chen MD [facility] [place] [address] Stj Rad Onc Office [address] [place] [phone] Referral ID Status Reason Start Date Expiration Date Visits Re quested Visits Authorized [id number] Closed 03/17/2017 03/17/2018 1 1 Encounter Details Date Type Department Care Team (Late st Contact Info) Description 04/13/2017 10:00 AM EST Office Visit Radiation Oncology at [address] [address] Faye Velez MD [facility] RADIATION [place] [address] Malignant neoplasm of left female breast, unspecified [...] cm from nipple. Path: Invasive mucinous ca, ER+MD+, Her2 FISH neg. 03/03/[address] [...] she is being evaluated for afib @ [facility] 04/15/17; has been wearing a ziopatch [...] 6.43) performed by Malika Chen MD at [facility] ??? PRO INTRAOP SENTINEL LYMPH ID W/DYE INJECTION Left 03/30/2017 INTRAOPERATIVE ID (MAPPING) SENTINEL LYMPH NODE,INCLUDES INJECTION (WRVU 2.5) performed by Malika Chen MD at [facility] ??? PRO MASTECTOMY, PARTIAL Left 03/30/2017 MASTECTOMY PARTIAL (WRVU 10.13) performed by Malika Chen MD at [facility] Your Medications These changes are [...] A: Breast ca, L, mucinous, gr 2, ER+MD+, Her2 neg, s/p lumpectomy & SNB, pT1b [...] treated breast; cough; shortness of breath; tiredness. Late/long term care social worker side effects to breast discussed include: Treated [...] breast documented in this encounter Care Teams Assigner Relationship Specialty Start Date End Date Ana Her MD [address] [place] [address] PCP - General 07/29/13 documented as of this encounter
--- OUTSIDE RECORDS SUMMARY | 2023-11-18 22:12 | XMS_ITS | Encounter Summary ---
Author Organization [facility] [place] [address] Care Team Providers Care Nylon Operator Name Role Phone Ana Her MD Primary Care Provider [phone] Encounter Details Date Type Department Care Team (Latest Contact Info) Description 06/11/2021 8:41 AM EST - 06/11/2021 11:59 PM [facility] Hospital Encounter Mammography[place] [phone] Jeanine Lobato APRN [facility] [place] [address] Malignant neoplasm of lower-outer quadrant of left [...] Take 40 mg by mouth daily. omega 4-lif-qyt-fish-turm salty 417 mg-120 mg- 276 mg-600 mg [...] who have questions please contact the health animal care provider that requested your imaging first. ? Jeanine Lobato CARDIOLOGY MANAGER IMG MAMMO ORD ERABLES documented in this encounter Visit Diagnoses Diagnosis 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, estrogen receptor positive Breast cancer screening by mammogram documented in this encounter Care Teams Nylon Operator Relationship Specialty Start Date End Date Ana Her MD [address] [place] [address] PCP - General 07/29/13 documented as of this encounter
--- OUTSIDE RECORDS SUMMARY | 2023-11-18 22:12 | XMS_ITS | Encounter Summary ---
Author Organization [place] [address] Care Team Providers Care Band Saw Marker Name Role Phone Ana Her MD Primary Care Provider [phone] Encounter Details Date Type Department Care Team (Late st Contact Info) Description 03/30/2017 9:30 AM EST - 03/30/2017 11:28 AM EST Surgery [place] [phone] Brant Chen MD [facility] [place] [address] MASTECTOMY PARTIAL (WRVU 10.13) Social History Tobacco [...] shower 24 hours Activity as tolerated Call [phone] with any questions Do not soak incision [...] was obtained which revealed IDC which is ER/RI+, her2-. She has no known breast masses, no adenopathy, no nipple discharge. ?? Alma Delia had a bone scan in [place] which was read as possible metastasis in the left tibia. Of note- she fractured this area recently. She has recovered well. ?? PMH HNT NIDDM not on meds Spinal stenosis Fractured left tibial plateau December, GERD ?? FH: Maternal first cousin with breast cancer Brother with rectal cancer Sister with PE ? SH: lives alone. Has good support from sisters who live in [place]. Non smoker. Has a son who lives [...] 71 yo female with radiographic stage I ER/RI+, HER2- IDC of the left breast. No [...] Chen MD - 03/30/2017 12:27 PM EST [facility] [place] Patient Name: Digna Olson : [id number] MR#: [id number] Case Date: 03/30/2017 Surgeon: Surgeon(s) and Role: [...] [place] [address]. Remaining count within the axilla was 1982. [...] PM EST 03/30/2017 12:09 PM EST Narrative [facility] - 03/30/2017 12:09 PM EST Specimen requisition ordered. ??Separate Pathology report to follow Brant Chen MD PATHOLOGY/CYTOLOGY ORDERABLES [facility] [place] [place] [address] * Specimen to Pathology (surgical or derm) (03/30/2017 12:08 PM EST) AP Specimen 03/30/2017 12:0 8 PM EST 03/30/2017 12:08 PM EST Narrative [facility] - 03/30/2017 12:08 PM EST Specimen requisition ordered. ??Separate Pathology report to follow Brant Chen MD PATHOLOGY/CYTOLOGY ORDERABLES Performing Organization Address [facility] Co de Phone Number [facility] [place] [address] * Specimen to Pathology (surgical or derm) (03/30/2017 12:00 PM EST) AP Specimen 03/30/2017 12:0 0 PM EST 03/30/2017 12:00 PM EST Narrative [facility] - 03/30/2017 12:00 PM EST Specimen requisition ordered. ??Separate Pathology report to follow Brant Chen MD PATHOLOGY/CYTOLOGY ORDERABLES Performing Organization Address [facility] [place] [address] * Specimen to Pathology (surgical or derm) (03/30/2017 11:51 AM EST) AP Specimen 03/30/2017 11:5 1 AM EST 03/30/2017 11:51 AM EST Narrative [facility] - 03/30/2017 11:51 AM EST Specimen requisition ordered. ??Separate Pathology report to follow Brant Chen MD PATHOLOGY/CYTOLOGY ORDERABLES Performing Organization Address [facility] de Phone Number [facility] [place] [address] * Surgical Pathology Report (03/30/2017 11:50 AM EST) Pathologist [facility] Surgical Pathology Report [id number] ? Location: [facility]; A The signing pathologist has (i) examined the relevant preparation(s) for the specimen(s) and (ii) rendered or confirmed the diagnosis(es). . ?Surgical Pathology DIAGNOSIS A,B - See Synoptic C - Left breast, Deep/lateral margin re-excision - ?Benign fatty breast tissue. D - Left breast, Superficial margin re-excision - ?Benign fatty breast tissue. See Note Note - [place] ink (indicating additional cranial margin) is also present on this superficial margin re-excision. ---- Specimen Parts: ?? A - Left axilliary sentinel node B - Left breast partial mastectomy Specimen ? Procedure: ??Excision with image-guided localization ? Lymph Node Sampling: ?? [place] lymph node(s) ? Specimen Laterality: ?? Left [...] not present in specimen Lymph Nodes ? [place] Lymph Nodes: ?? [place] lymph node biopsy performed ? Number of [place] Nodes Examined: ?3 ? Number of Lymph [...] Chávez DO Verified: ??04/01/2017 ?Pathologist Performed at: ??[place] [place], [place], [place] CLINICAL INFORMATION Specimen Submitted: A - [...] and there are ??no close margins. per [facility] Radiology . Specimen Description: According to the established protocol the ink designations are red (medial), yellow (lateral), orange (cranial), green (caudal), black (deep) and blue (superficial). Tissue Sections: The specimen is serially sectioned perpendicular to the long axis from lateral to medial into X slices, each averaging 0.45 cm in thickness. LESION Description: Biopsy site. Size: 0.8 x 0.4 x 0.4 cm. Color: [place] and yellow. Consistency: Soft. Location: Slices III and IV. Nearest Margin: 0.6 cm to the cranial margin. Other Margins: 0.8 cm to the deep margin, 1.0 cm to the superficial margin, ? > 2 cm from all other margins. OTHER Parenchyma: Predominately fatty with scant fibrous tissue. Wire/Clip: Biopsy marker clip identified within slice IV. SECTIONS/PROCESSI NG: (1) patient financial representative slice I, lateral margin; (2) slice III, lesion to cranial margin; (3-5) remainder of slice III; (6) slice IV, lesion to cranial margin (clip); (7-8) remainder of slice IV; (9) patient financial representative slice V; (10) patient financial representative slice X, medial margin. (R10) Ischemic [...] aspect. Sections/Processi ng: Serially sectioned. (T3) ??sns [facility] 03/30/2017 11:5 0 AM EST Brant Chen MD PATHOLOGY/CYTOLOGY ORDERABLES [facility] [place] [place] [address] * Mammo Direct Digital Left (03/30/2017 9:15 [...] Routine documented in this encounter Care Teams Band Saw Marker Relationship Specialty Start Date End Date Ana Her MD [address] [place] [address] PCP - General 07/29/13 documented as of this encounter
--- OUTSIDE RECORDS SUMMARY | 2023-11-18 22:12 | XMS_ITS | Encounter Summary ---
Author Organization [facility] [place] [address] Care Team Providers Care Food Service Substitute Name Role Phone Ana Her MD Primary Care Provider [phone] Reason for Visit * Reason Comments Advice Only BBR * Consultation (Routine) - Closed Specialty Diagnoses / Procedures Referred By Christiano hackett Referred To Contact Plastic Surgery Diagnoses 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, estrogen receptor positive Macromastia Jeanine Lobato APRN [facility] [place] [address] [facility] [address] [place] [address] Referral ID Status Reason Start Date Expiration Date V isits Requested Visits Authorized [id number] Closed Consult, Test & Treat 06/11/2021 06/11/2022 1 1 Encounter Details Date Type Department Care Team (Late st Contact Info) Description 07/09/2021 8:30 AM EST Office [place] [address] Med Hudson MD [facility] [place] [address] Macromastia Social History Tobacco Use [...] physical with your primary care doctor and Sales Project Coordinator clearance Two Weeks prior to Surgery Do [...] Day of Surgery You will need a wheelchair driver. If you do not have a wheelchair driver, your surgery will be canceled. DO [...] pm) For an appointment or insurance questions For questions pertaining to your surgical date [phone] For nursing related questions [phone] On weekends, holidays or after office hours: Call and ask the cat operator to page the Plastic Surgery Resident sanitation technician. documented in this encounter Progress Notes * [...] and was normal. [place] [facility] She has completed a breast specific questionnaire: [...] None of the time Conservative Therapy Treatments: [facility] CONSERVATIVE THERAPY TREATMENTS 07/09/2021 Physical therapy [...] 6.43) performed by Malika Chen MD at [facility] MAIN OR ??? PRO INTRAOP SENTINEL LYMPH ID W/DYE INJECTION Left 03/30/2017 INTRAOPERATIVE ID (MAPPING) SENTINEL LYMPH NODE,INCLUDES INJECTION (WRVU 2.5) performed by Malika Chen MD at [facility] MAIN OR ??? PRO MASTECTOMY PARTIAL Left 03/30/2017 MASTECTOMY PARTIAL (WRVU 10.13) performed by Malika Chen MD at [facility] MAIN OR Family History Problem Relation [...] surgery is best done at a realistic halfway stable weight. We talked about the outpatient [...] revisions for scarring or asymmetry.) Garcia or [place] Pattern Incision: More scarring on breast, but [...] Timeframe: Elective Procedure: Bilateral breast reduction CPT: 08520 Surgical Technique: Garcia, Pedicle Surgical site: Breasts Side: Bilateral Anesthesia: General Follow up: 1 day for drain removal; 7-10 days for HCK PAT: H+P PCP, Cardiac clearance. Need to discontinue blood thinners pre-op? Xarelto documented in this encounter Plan of Treatment Not on file documented as of this encounter Visit Diagnoses Diagnosis Macromastia Hypertrophy of breast documented in this encounter Care Teams Food Service Substitute Relationship Specialty Start Date End Date Ana Her MD [address] [place] [address] PCP - General 07/29/13 documented as of this encounter
--- OUTSIDE RECORDS SUMMARY | 2023-11-18 22:12 | XMS_ITS | Encounter Summary ---
Author Organization [facility] [place] [address] Care Team Providers Care Leather Production Artisan Name Role Phone Ana Her MD Primary Care Provider [phone] Encounter Details Date Type Department Care Team (Latest Contact Info) Description 05/31/2019 10:16 AM EST - 05/31/2019 11:59 PM [facility] Hospital Encounter Mammography/[place] [phone] Jeanine Lobato APRN [facility] [place] [address] History of breast cancer Discharge Disposition: Home [...] BIRADS CATEGORY 2: Benign findings. * ??The [employer] and The Society of [...] breast documented in this encounter Care Teams Leather Production Artisan Relationship Specialty Start Date End Date Ana Her MD [facility] [address] [place] [address] PCP - General 07/29/13 documented as of this encounter
--- OUTSIDE RECORDS SUMMARY | 2023-11-18 22:12 | XMS_ITS | Encounter Summary ---
[place] [address] Care Team Providers Care It Business Process Architect Name Role Phone Ana Her MD Primary Care Provider [phone] Encounter Details Date Type Department Care Team (Late st Contact Info) Description 06/12/2021 Telephone [place] [phone] Chelsie Lauren Social History Tobacco Use Types [...] on filedocumented in this encounter Care Teams It Business Process Architect Relationship Specialty Start Date End Date Ana Her MD [address] [place] [address] PCP - General 07/29/13 documented as of this encounter
--- OUTSIDE RECORDS SUMMARY | 2023-11-18 22:12 | XMS_ITS | Encounter Summary ---
[place] [address] Care Team Providers Care Product Support Specialist Name Role Phone Ana Her MD Primary Care Provider [phone] Encounter Details Date Type Department Care Team (Late st Contact Info) Description 05/19/2017 Telephone Hematology [place] [phone] Sandy Chapman Social History Tobacco Use Types [...] filedocumented in this encounter Care Teams Product Support Specialist Relationship Specialty Start Date End Date Ana Her MD [address] [place] [address] PCP - General 07/29/13 documented as of this encounter
--- OUTSIDE RECORDS SUMMARY | 2023-11-18 22:13 | XMS_ITS | Encounter Summary ---
Author Organization [facility] [place] [address] Care Team Providers Care Double Cut Off Saw Operator Name Role Phone Ana Her MD Primary Care Provider [phone] Encounter Details Date Type Department Care Team (Latest Contact Info) Description 02/17/2017 12:15 AM EDT - 02/17/2017 11:59 PM EDT Hospital Encounter [place] [address] Maryam Yee MD [facility] [place] [address] Screening breast examination Discharge Disposition: Home Social [...] Only Mammo (02/17/2017 12:15 AM EDT) Narrative [facility] - 02/19/2017 2:01 PM EDT This exam is for storage only and is auto-finalizing. Maryam Yee MD IMG FILM LIBRARY O RDERABLES [place], [place] documented in this encounter Visit Diagnoses Diagnosis Screening breast examination (Not by Mammogram) Other screening breast examination documented in this encounter Care Teams Double Cut Off Saw Operator Relationship Specialty Start Date End Date Ana Her MD [address] [place] [address] PCP - General 07/29/13 documented as of this encounter
--- OUTSIDE RECORDS SUMMARY | 2023-11-18 22:13 | XMS_ITS | Encounter Summary ---
Author Organization [facility] Address [address] [place] [address] Care Team Providers Care Barrel Ribs Solderer Name Role Phone Unknown, Provider Primary Care Provider Encounter Details Date Type Department Care Team (Late st Contact Info) Description 08/12/2021 Lab Requisition [facility] Pathology & Laboratory Medicine - [address] [address] Outr Resulting Lab, Provider Social History Tobacco [...] Priority Date/Time Associated Diagnosis Comments ZZCOVID-19 TEST [facility] PCR Today 08/12/2021 15:00 EDT COVID-19 TESTING Routine 08/12/2021 15:0 0 EDT documented in this encounter Results * COVID-19 TEST [facility] PCR (08/12/2021 15:00 EDT) Swab 08/12/2021 15:0 0 EDT 08/13/2021 16:56 EDT Provider Outr Resulting Lab MICROBIOLOGY - GENERAL ORDERABLES [facility] [address] [place] [address] * COVID-19 TESTING (08/12/2021 15:00 EDT) COVID-19 rt-PCR Result Negative Negative 08/14/2021 11:53 EDT [facility] Comment: This test has not [...] was performed using the palomo SARS-CoV-2 assay ([employer] on the Palomo 6800 System Performing Lab [place] [address] [facility] 08/14/2021 11:53 EDT [facility] Swab 08/12/2021 15:0 0 EDT 08/13/2021 16:56 EDT Provider Outr Resulting Lab MICROBIOLOGY - GENERAL ORDERABLES [facility] [address] [place] [address] documented in this encounter Visit Diagnoses Not on filedocumented in this encounter Care Teams Barrel Ribs Solderer Relationship Specialty Start Date End Date Unknown, Provider, PCP - General 01/13/14 documented as of this encounter
--- OUTSIDE RECORDS SUMMARY | 2023-11-18 22:13 | XMS_ITS | Encounter Summary ---
Author Organization [place] [address] Care Team Providers Care Section Chief Name Role Phone Ana Her MD Primary Care Provider [phone] Encounter Details Date Type Department Care Team (Latest Contact Info) Description 02/25/2017 1:36 PM EDT - 02/25/2017 2:58 PM EDT Hospital [place] [phone] Maryam Yee MD [facility] [place] [address] Abnormal mammogram Discharge Disposition: Home Social History [...] unspecified documented in this encounter Care Teams Section Chief Relationship Specialty Start Date End Date Ana Her MD [address] [facility] [address] [place] [address] PCP - General 07/29/13 documented as of this encounter
--- OUTSIDE RECORDS SUMMARY | 2023-11-18 22:13 | XMS_ITS | Encounter Summary ---
Author Organization [facility] [place] [address] Care Team Providers Care Garment Liner Name Role Phone Ana Her MD Primary Care Provider [phone] Encounter Details Date Type Department Care Team (Latest Contact Info) Description 02/23/2017 3:50 PM EDT - 02/23/2017 11:59 PM EDT Hospital Encounter [place] [phone] Jackie Cisneros APRN [address] [place] [address] Left breast mass Discharge Disposition: Home Social [...] recommended. Please note: The interpretation of the [facility] Breast Imaging Radiologist subspecialist may differ from the original radiologists interpretation. This is usually not due to a deficiency of the original interpreting radiologist, rather due to the greater skill level afforded by sub-specialization in the field and/or reasonable variations in interpretations. If you have a concern regarding the D-H interpretation you may contact the [facility] Breast Investigator Operator Office at . I have personally reviewed [...] the care of this patient. STUDIES FROM: [facility] DATES: Screening mammogram 02/12/2017, diagnostic mammogram and [...] alter the care of thispatient. STUDIES FROM: [facility] DATES: Screening mammogram 02/12/2017, diagnostic mammogram andultrasound [...] recommended. Please note: The interpretation of the [facility] BreastImaging Radiologist subspecialist may differ from the original radiologists interpretation. This is usually not due to a deficiency of the original interpreting radiologist, rather due to the greater skill level affordedby sub-specialization in the field and/or reasonable variations ininterpretations. If you have a concern regarding the D-H interpretation you may [facility] Operator [facility] at . I have personally reviewed the image(s) and the residents interpretationand agree with the findings, ROBERT THOMPSON at 02/24/2017 8:41 AM 8:41 AM Jackie Cisneros REIMBURSEMENT AUDITOR IMG OUTSIDE INTERPRE TATION ORDERABLES documented in this encounter Visit Diagnoses Diagnosis Left breast mass Lump or mass in breast documented in this encounter Care Teams Garment Liner Relationship Specialty Start Date End Date Ana Her MD [address] [place] [address] PCP - General 07/29/13 documented as of this encounter
--- OUTSIDE RECORDS SUMMARY | 2023-11-18 22:13 | XMS_ITS | Encounter Summary ---
Author Organization [facility] [place] [address] Care Team Providers Care Jet Blade Polisher Name Role Phone Ana Her MD Primary Care Provider [phone] Encounter Details Date Type Department Care Team (Late st Contact Info) Description 03/03/2017 Notes [place] [address] January Ward MSW Social History Tobacco Use Types Packs/Day Years Used Date Smoking Tobacco: Never Smokeless Tobacco: Never Sex and Gender Information Value Date Recorded Sex Assigned at Not on file Gender Identity Not on file Sexual Orientation Not on file documented as of this encounter Progress Notes * January Ward MSW - 03/03/2017 12:56 PM EDT OFFICE OF CARE MANAGEMENT/CONTINUING ROPE MAKER Reason for referral: Digna Olson is a 71 year old, female who was seen in the multidisciplinarybreast care clinic for a surgical consult as she was recently diagnosed with ER/SC+, left breast, invasive mucinous carcinoma. After meeting with Dr. Chen, pt has decided to have a lumpectomy/SLNB. If pt needs radiation therapy, she will receive it at the [facility]. [facility] met with pt to complete a psychosocial assessment and to explain my role in the breast program. Pt was encouraged to contact me if she has any questions or concerns. Living arrangements/social supports: Pt lives alone in [place], [place]. She has support from her family and is accompanied to today's appt by her sisters who live in [place]. Employment/Insurance/Finances: Pt is retired and receives Social Security Penitentiary Benefits. Pt has Medicare A and B [...] Antonia Oliva is the SW for the [facility]. Plan: [facility] will continue to follow pt to assess and assist with their psychosocial needs. DELONTE [facility]/[place] [phone] Pager #[phone] documented in this encounter Plan of Treatment Not on file documented as of this encounter Visit Diagnoses Not on filedocumented in this encounter Care Teams Jet Blade Polisher Relationship Specialty Start Date End Date Ana Her MD [address] [place] [address] PCP - General 07/29/13 documented as of this encounter
--- OUTSIDE RECORDS SUMMARY | 2023-11-18 22:13 | XMS_ITS | Encounter Summary ---
Author Organization [facility] Address [address] [place] [address] Care Team Providers Care Business Services Vice President Name Role Phone Unknown, Provider Primary Care Provider Encounter Details Date Type Department Care Team (Late st Contact Info) Description 03/17/2017 Results Only [facility] [phone] Kat Lazaro MD [address] [place] [address] [place] [address] Social History Tobacco Use Types Packs/Day Years [...] ? DIGNA KIMBROUGH ? Accession #: ? [id number] ? : ? 1945 (Age: 71) ??F [...] (ASCP) 03/18/2017 8:14 AM End of Report [facility] 03/17/2017 16:1 5 EST 03/17/2017 16:15 EST Kat Lazaro MD PATHOLOGY [facility]A [facility] [address] [place] [address] documented in this encounter Visit Diagnoses Not on filedocumented in this encounter Care Teams Business Services Vice President Relationship Specialty Start Date End Date Unknown, Provider, PCP - General 01/13/14 documented as of this encounter
--- OUTSIDE RECORDS SUMMARY | 2023-11-18 22:13 | XMS_ITS | Encounter Summary ---
[place] [address] Care Team Providers Care Felt Coverer Name Role Phone Unavailable Primary Care Provider Unavailabl e Encounter Details Date Type Department Care Team (Latest Contact Info) Description 12/25/2010 - 12/25/2010 11:59 PM EDT Hospital Encounter [place] [address] Jackie Cisneros APRN [address] [place] [address] Discharge Disposition: Home Social History Tobacco Use [...] Only Mammo (12/25/2010 12:00 AM EDT) Narrative [facility] - 02/23/2017 3:27 PM EDT This exam is for storage only and is auto-finalizing. Jackie Cisneros APRN IMG FILM LIBRARY ORD ERABLES NADINE Sethi documented in this encounter Visit Diagnoses Not on filedocumented in this encounter
--- OUTSIDE RECORDS SUMMARY | 2023-11-18 22:13 | XMS_ITS | Encounter Summary ---
[place] [address] Care Team Providers Care Bakery Supervisor Name Role Phone Ana Her MD Primary Care Provider [phone] 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 * Surgical (Routine) - Closed Specialty Diagnoses / Procedures Referred By Christiano hackett Referred To Contact Orthopaedics Diagnoses Lumbar spinal stenosis Michelle Hurtado APRN [facility] [place] [address] [facility] [place] [address] [place] [address] Referral ID Status Reason Start Date Expiration Date V isits Requested Visits Authorized [id number] Closed Consult, Test & Treat 09/08/2014 09/08/2015 3 3 Encounter Details Date Type Department Care Team (Late st Contact Info) Description 09/08/2014 Orders Only [place] [address] Michelle Hurtado ENTERPRISE INFRASTRUCTURE ARCHITECT [facility] [place] [address] Lumbar spinal stenosis Social History Tobacco Use [...] claudication documented in this encounter Care Teams Bakery Supervisor Relationship Specialty Start Date End Date Ana Her MD [facility] [address] [facility] [address] [place] [address] PCP - General 07/29/13 documented as of this encounter
--- OUTSIDE RECORDS SUMMARY | 2023-11-18 22:13 | XMS_ITS | Encounter Summary ---
[place] [address] Care Team Providers Care Nut Chopper Name Role Phone Unavailable Primary Care Provider Unavailabl e Encounter Details Date Type Department Care Team (Latest Contact Info) Description 01/29/2013 - 01/29/2013 11:59 PM EDT Hospital Encounter [place] [address] Jackie Cisneros APRN [address] [place] [address] Discharge Disposition: Home Social History Tobacco Use [...] Only Mammo (01/29/2013 12:00 AM EDT) Narrative [facility] - 02/23/2017 3:26 PM EDT This exam is for storage only and is auto-finalizing. Jackie Cisneros APRN IMG FILM LIBRARY ORD ERABLES NADINE Sethi documented in this encounter Visit Diagnoses Not on filedocumented in this encounter
--- OUTSIDE RECORDS SUMMARY | 2023-11-18 22:13 | XMS_ITS | Encounter Summary ---
Author Organization [facility] [place] [address] Care Team Providers Care Aircraft Hydraulic Equipment Mechanic Name Role Phone Ana Her MD Primary Care Provider [phone] Encounter Details Date Type Department Care Team (Latest Contact Info) Description 02/25/2017 1:31 PM EDT Hospital En[place] [address] Maryam Yee MD [facility] [place] [address] Abnormal mammogram Discharge Disposition: Home Social History [...] unspecified documented in this encounter Care Teams Aircraft Hydraulic Equipment Mechanic Relationship Specialty Start Date End Date Ana Her MD [address] [place] [address] PCP - General 07/29/13 documented as of this encounter
--- OUTSIDE RECORDS SUMMARY | 2023-11-18 22:13 | XMS_ITS | Encounter Summary ---
Author Organization [facility] [place] [address] Care Team Providers Care Risk Prevention Engineer Name Role Phone Ana Her MD Primary Care Provider [phone] Encounter Details Date Type Department Care Team (Latest Contact Info) Description 02/25/2017 2:59 PM EDT - 02/25/2017 11:59 PM EDT Hospital [place] [phone] Enzo Burkett MD [facility] [place] [address] Abnormal finding on breast imaging Discharge Disposition: [...] associated with invasive carcinoma. Enzo Burkett MD [facility] ORDERABLES * Surgical Pathology Report (02/25/2017 3:01 PM EDT) Pathologist [facility] Surgical Pathology Report [id number] ? Location: 3L The signing pathologist has [...] FISH. ??Direct analysis was performed using the DotGT Kit. ??Slide adequacy and signal enumeration were [...] factor receptor 2 testing in breast cancer: [place] Society of Clinical Oncology/College of [place] Pathologists clinical practice guideline update. J Clin Oncol. 2013 Nov . Reviewed by: Kyara Logan MD Rrts, Molecular Pathology _ Electronically signed by: ??Epifanio Serra MD Verified: ??03/04/2017 ?Pathologist Performed at: ??-[facility] [place], [place], [place] ? Addendum ADDENDUM DISCUSSION Immunohistochemist ry Studies Specimen: Left breast, core needle biopsy (A1) ER immunoreactivity: Positive ( ??>90% cancer cells with immunostaining) Stain intensity: Strong . ADDENDUM DISCUSSION NV immunoreactivity: Positive ( ??>90% cancer cells with [...] The assays were performed according to the gi technician ' s instructions using Anti-ER (SP1) and Anti-NV (16) antibodies. Electronically signed by: ??Epifanio Serra MD Verified: ??02/27/2017 ?Pathologist Performed at: ??-[facility] [place], [place], [place] ?Surgical Pathology DIAGNOSIS Needle biopsies: ?Left breast Diagnosis: ?Invasive mucinous carcinoma (see Discussion) ?Intermediate grade, modified SBR score = 6 Microcalcification s: ??Few calcifications associated with invasive carcinoma Electronically signed by: ??Epifanio Serra MD Verified: ??02/26/2017 ?Pathologist Performed at: ??-[facility]. [facility] [place], [place], [place] DISCUSSION Studies for ER, NV, and HER2 have been ordered; results will [...] Time: 4 minutes. Sections/Processin g: (T4) ??elian [facility] 02/25/2017 3:01 PM EDT Enzo Burkett MD PATHOLOGY/CYTOLOGY O RDERABLES [facility] [place] [address] documented in this encounter Visit Diagnoses Diagnosis Abnormal finding on breast imaging Other (abnormal) findings on radiological examination of breast documented in this encounter Care Teams Risk Prevention Engineer Relationship Specialty Start Date End Date Ana Her MD [address] [place] [address] PCP - General 07/29/13 documented as of this encounter
--- OUTSIDE RECORDS SUMMARY | 2023-11-18 22:13 | XMS_ITS | Encounter Summary ---
[place] [address] Care Team Providers Care Education Courses Sales Representative Name Role Phone Ana Her MD Primary Care Provider [phone] Reason for Visit * Reason Comments Low Back Pain Encounter Details Date Type Department Care Team (Late st Contact Info) Description 08/30/2014 8:35 AM EDT Office [place] [phone] Michelle Hurtado APRN [facility] [place] [address] Neurogenic claudication due to lumbar spinal stenosis [...] this encounter Progress Notes * Michelle Hurtado, LANDSCAPER - 08/30/2014 9:37 AM EDT CHIEF COMPLAINT: [...] activity. 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 MEDICATIONS & [...] care of this patient. Michelle Hurtado MS, LANDSCAPER, MEDICAL LABORATORY SPECIALIST-C [facility] documented in this encounter Plan of Treatment Not on file documented as of this encounter Visit Diagnoses Diagnosis Neurogenic claudication due to lumbar spinal stenosis Spinal stenosis, lumbar region, with neurogenic claudication documented in this encounter Care Teams Education Courses Sales Representative Relationship Specialty Start Date End Date Aan Her MD [address] [place] [address] PCP - General 07/29/13 documented as of this encounter
--- OUTSIDE RECORDS SUMMARY | 2023-11-18 22:13 | XMS_ITS | Encounter Summary ---
Author Organization [facility] Address [address] [place] [address] Care Team Providers Care Industrial Hygiene Engineer Name Role Phone Unknown, Provider Primary Care Provider Encounter Details Date Type Department Care Team (Late st Contact Info) Description 01/20/2020 Lab Requisition [facility] Pathology & Laboratory Medicine - [facility] [address] [place] [address] Outr Resulting Lab, Provider Social History Tobacco [...] in accordance with CLIA regulations, College of [place] Pathologists (CAP) guidelines (Jul 21, 2019), and FDA guidance (Jul 02, 2019). This test is only for use under the Food and Drug Administration's Emergency Use Authorization. Swab ENTIRE NASOPHARYNX / Unknown 01/20/2020 10:30 EDT 01/20/2020 15:35 EDT Provider Outr Resulting Lab MICROBIOLOGY - GENERAL ORDERABLES [place] * COVID-19 TESTING (01/20/2020 10:30 EDT) Pathologist [facility] COVID-19 rt-PCR Result NEGATIVE Negative 01/21/2020 17:21 EDT [facility] Comment: 2019-novel Coronavirus (2019-nCoV) not detected [...] in accordance with CLIA regulations, College of [place] Pathologists (CAP) guidelines (Jul 21, 2019), and FDA guidance (Jul 02, 2019). This test is only for use under the Food and Drug Administration's Emergency Use Authorization. Performing Lab [facility] 01/21/2020 17:21 EDT [facility] Swab 01/20/2020 10:3 0 EDT 01/20/2020 15:35 EDT Provider Outr Resulting Lab MICROBIOLOGY - GENERAL ORDERABLES [facility] [address] [place], [place] [address] [place] [address] LABORATORY [place], [place] documented in this encounter Visit Diagnoses Not on filedocumented in this encounter Care Teams Industrial Hygiene Engineer Relationship Specialty Start Date End Date Unknown, Provider, PCP - General 01/13/14 documented as of this encounter
--- OUTSIDE RECORDS SUMMARY | 2023-11-18 22:13 | XMS_ITS | Referral Summary ---
Author Organization [facility] Address [address] [place] [address] Care Team Providers Care Wrapper Stripper Name Role Phone Unknown, Provider Primary Care Provider Social History Tobacco Use Types Packs/Day Years Used Date Smoking Tobacco: Never Assessed Sex and Gender Information Value Date Recorded Sex Assigned at Not on file Gender Identity Not on file Sexual Orientation Not on file Plan of Treatment Not on file Care Teams Wrapper Stripper Relationship Specialty Start Date End Date Unknown, Provider, PCP - General 01/13/14
--- OUTSIDE RECORDS SUMMARY | 2023-11-18 22:13 | XMS_ITS | Encounter Summary ---
Author Organization [facility] Address [address] [facility] [place] [address] Care Team Providers Care Immunology Teacher Name Role Phone Ana Her MD Primary Care Provider [phone] Encounter Details Date Type Department Care Team (Late st Contact Info) Description 09/13/2015 Interpretation Only Radiology [address] [place] [address] Unknown None Social History Tobacco Use Types [...] 6:56 AM EDT APD Historical Result Principal Timber Framer: ??MAE ??ESCHBACH IMAGE-INTENSIFIER FILMS: INDICATION: ??Right L4 foraminotomy. FINDINGS: A total of 5.8 seconds of fluoro time was utilized by Geraldine Claros MD. ??Estimated dose is 5.96 mGy. ??Two image-intensifier films record the event. ??They show the lumbosacral junction in the lateral projection with a surgical instrument indicating the level of L4. ??No Radiologist was present for this exam. Mae Shelley DO TOBIN/mn [id number] Procedure Note Unknown - 11/01/2018 APD Historical Result Principal Timber Framer: MAE SHELLEY IMAGE-INTENSIFIER FILMS: INDICATION: Right L4 foraminotomy. FINDINGS: A total of 5.8 seconds of fluoro time was utilized by Geraldine Claros MD. Estimated dose is 5.96 mGy. Two image-intensifier films record the event. They show thelumbosacral junction in the lateral projection with a surgical instrument indicating the level of L4.No Radiologist was present for this exam. Mae Shelley DO TOBIN/mn [id number] Unknown IMG FLUORO ORDERABLE S documented in this encounter Visit Diagnoses Not on filedocumented in this encounter Care Teams Immunology Teacher Relationship Specialty Start Date End Date Ana Her MD [address] [place] [address] PCP - General 07/29/13 documented as of this encounter
--- OUTSIDE RECORDS SUMMARY | 2023-11-18 22:13 | XMS_ITS | Encounter Summary ---
[place] [address] Care Team Providers Care Naturopathic Oncology Provider Name Role Phone Unavailable Primary Care Provider Unavailabl e Encounter Details Date Type Department Care Team (Latest Contact Info) Description 12/19/2009 - 12/19/2009 11:59 PM EDT Hospital Encounter [place] [address] Jackie Cisneros APRN [address] [place] [address] Discharge Disposition: Home Social History Tobacco Use [...] Only Mammo (12/19/2009 12:00 AM EDT) Narrative [facility] - 02/23/2017 3:29 PM EDT This exam is for storage only and is auto-finalizing. Jackie Cisneros APRN IMG FILM LIBRARY ORD ERABLES NADINE Sethi documented in this encounter Visit Diagnoses Not on filedocumented in this encounter
--- OUTSIDE RECORDS SUMMARY | 2023-11-18 22:13 | XMS_ITS | Encounter Summary ---
Author Organization [facility] [place] [address] Care Team Providers Care 2Nd Pressman Name Role Phone Ana Her MD Primary Care Provider [phone] Encounter Details Date Type Department Care Team (Late st Contact Info) Description 08/16/2014 Orders Only Functional Druze Program at [facility] [address] [place] [address] Khari Martínez MD [facility] [place] [address] Social History Tobacco Use Types Packs/Day Years [...] is a Non-reportable exam Khari Martínez MD [facility] FILM LIBRARY ORD ERABLES documented in this encounter Visit Diagnoses Not on filedocumented in this encounter Care Teams 2Nd Pressman Relationship Specialty Start Date End Date Ana Her MD [facility] [address] [place] [address] PCP - General 07/29/13 documented as of this encounter
--- OUTSIDE RECORDS SUMMARY | 2023-11-18 22:13 | XMS_ITS | Encounter Summary ---
Author Organization [facility] Address [address] [place] [address] Care Team Providers Care Hospital Unit Clerk Name Role Phone Unknown, Provider Primary Care Provider Encounter Details Date Type Department Care Team (Late st Contact Info) Description 10/26/2022 Lab Requisition [facility] Pathology & Laboratory Medicine - [facility] [address] [place] [address] Outr Resulting Lab, Provider Social History Tobacco [...] Neg and Giardia Antigen Neg 13:48 EDT [facility] Feces SPECIMEN FROM RECTUM / Unknown 10/25/2022 15:00 EDT 10/26/2022 15:25 EDT Provider Outr Resulting Lab MICROBIOLOGY - GENERAL ORDERABLES Performing Organization Address City/[facility]/ZIP Co de Phone Number [facility] [address] [place] [address] * FECAL BACTERIAL PATHOGENS BY PCR (10/25/2022 15:00 EDT) Salmonella PCR Negative Negative 10/26/2022 19:17 EDT [facility] Shigella/Enteroin vasive E. coli Negative Negative 10/26/2022 19:17 EDT [facility] HN LAB CAMPYLOBACTER PCR Negative Negative 10/26/2022 19:17 EDT [facility] Shiga Toxin PCR Negative Negative 19:17 EDT [facility] Feces SPECIMEN FROM RECTUM / Unknown 10/25/2022 15:00 EDT 10/26/2022 15:25 EDT Provider Outr Resulting Lab MICROBIOLOGY - GENERAL ORDERABLES Performing Organization Address [facility] Co de Phone Number [facility] [address] [place] [address] * OVA/PARASITE EXAM (10/25/2022 15:00 EDT) Parasite No ova and parasites seen. 10/28/2022 15:08 EDT [facility] Feces SPECIMEN FROM RECTUM / Unknown 10/25/2022 15:00 EDT 10/26/2022 15:25 EDT Narrative [facility] - 10/28/2022 15:08 EDT (If Cryptosporidium, Cyclospora, or Microsporidium are suspected, specific tests must be requested.) Single negative specimen does not rule out the possibility of a parasitic infection. Provider Outr Resulting Lab MICROBIOLOGY - GENERAL ORDERABLES Performing Organization Address [facility] Co de Phone Number [facility] [address] [place] [address] documented in this encounter Visit Diagnoses Not on filedocumented in this encounter Care Teams Hospital Unit Clerk Relationship Specialty Start Date End Date Unknown, Provider, PCP - General 01/13/14 documented as of this encounter
--- OUTSIDE RECORDS SUMMARY | 2023-11-18 22:13 | XMS_ITS | Encounter Summary ---
Author Organization [facility] [place] [address] Care Team Providers Care Scenic Artist Name Role Phone Ana Her MD Primary Care Provider [phone] Encounter Details Date Type Department Care Team (Late st Contact Info) Description 02/27/2017 Orders [place] [address] Malika Chen MD [facility] [place] [address] Malignant neoplasm of left breast in female, [...] Glucose Lvl 139 65 - 199 mg/dL [facility] Comment:Diabetes: >=200 mg/d L plus symptoms BUN 20(H) 8 - 18 mg/dL [facility] Creatinine 0.95 0.70 - 1.20 mg/dL [facility] Sodium 141 135 - 145 mmol/L [facility] Potassium 4.8 3.5 - 5.0 mmol/L [facility] Comment: Please note: ??Patients with WBC >100,000 may have falsely elevated Potassium levels. ??For accurate Potassium quantification in these patients send serum separator tube (gold top) for subsequent determinations. ??Contact the Clinical Chemistry Laboratory if there are any questions. Chloride 101 98 - 107 mmol/L [facility] CO2 26 22 - 31 mmol/L [facility] Anion Gap 14 5 - 15 mmol/L [facility] Calcium 9.3 8.5 - 10.5 mg/dL [facility] Total Protein 6.9 6.1 - 8.0 gm/dL [facility] Albumin 4.2 3.2 - 5.2 gm/dL [facility] AST 17 0 - 30 unit/L [facility] ALT 16 0 - 30 unit/L [facility] Alk Phos 75 40 - 104 unit/L [facility] Total Bilirubin 0.5 0.2 - 1.3 mg/dL [facility] Estimated GFR 58(L) >=60 [facility] Comment: The reported eGFR should be multiplied by 1.2 for patients. The MDRD is not an appropriate measure of renal function for patients with body mass extremes or in patients with acute kidney failure. [email or web address] [email or web address]/[email or web address] [email or web address] [email or web address]/DHMCnkf Blood specimen (specimen) 03/03/2017 7:50 AM EDT 03/03/2017 8:03 AM EDT Narrative Resulting Agency Comment Spec In Lab Malika Chen MD CHEMISTRY ORDERABLE S [facility] [place] [address] documented in this encounter Visit Diagnoses Diagnosis Malignant neoplasm of left breast in female, estrogen receptor positive, unspecified site of breast documented in this encounter Care Teams Scenic Artist Relationship Specialty Start Date End Date Ana Her MD [address] [place] [address] PCP - General 07/29/13 documented as of this encounter
--- OUTSIDE RECORDS SUMMARY | 2023-11-18 22:13 | XMS_ITS | Encounter Summary ---
Author Organization [facility] [place] [address] Care Team Providers Care Metal Handler Name Role Phone Ana Her MD Primary Care Provider [phone] Encounter Details Date Type Department Care Team (Latest Contact Info) Description 02/12/2017 - 02/12/2017 11:59 PM EDT Hospital Encounter [place] [phone] Maryam Yee MD [facility] [place] [address] Screening breast examination Discharge Disposition: Home Social [...] Only Mammo (02/12/2017 12:00 AM EDT) Narrative [facility] - 02/19/2017 1:47 PM EDT This exam is for storage only and is auto-finalizing. Maryam Yee MD IMG FILM LIBRARY O RDERABLES [place], [place] documented in this encounter Visit Diagnoses Diagnosis Screening breast examination (Not by Mammogram) Other screening breast examination documented in this encounter Care Teams Metal Handler Relationship Specialty Start Date End Date Ana Her MD [address] [place] [address] PCP - General 07/29/13 documented as of this encounter
--- OUTSIDE RECORDS SUMMARY | 2023-11-18 22:13 | XMS_ITS | Encounter Summary ---
[place] [address] Care Team Providers Care Mannequin Coloring Artist Name Role Phone Unavailable Primary Care Provider Unavailabl e Encounter Details Date Type Department Care Team (Latest Contact Info) Description 04/04/2005 - 04/04/2005 11:59 PM EST Hospital Encounter [place] [address] Jackie Cisneros APRN [address] [place] [address] Discharge Disposition: Home Social History Tobacco Use [...] Only Mammo (04/04/2005 12:00 AM EST) Narrative [facility] - 02/23/2017 3:32 PM EDT This exam is for storage only and is auto-finalizing. Jackie Cisneros APRN G FILM LIBRARY ORD ERABLES NADINE Sethi documented in this encounter Visit Diagnoses Not on filedocumented in this encounter
--- OUTSIDE RECORDS SUMMARY | 2023-11-18 22:13 | XMS_ITS | Encounter Summary ---
Author Organization [facility] Address [address] [place] [address] Care Team Providers Care Plant Technician Name Role Phone Unknown, Provider Primary Care Provider Encounter Details Date Type Department Care Team (Late st Contact Info) Description 04/06/2022 Lab Requisition [facility] Pathology & Laboratory Medicine - [facility] [address] [place] [address] Outr Resulting Lab, Provider Social History Tobacco [...] Salmonella PCR Negative Negative 04/06/2022 22:54 EST [facility] Shigella/Enteroin vasive E. coli Negative Negative 04/06/2022 22:54 EST [facility] HN LAB CAMPYLOBACTER PCR Negative Negative 04/06/2022 22:54 EST [facility] Shiga Toxin PCR Negative Negative 22:54 EST [facility] Feces SPECIMEN FROM RECTUM / Unknown 04/05/2022 10:41 EST 04/06/2022 18:31 EST Provider Outr Resulting Lab MICROBIOLOGY - GENERAL ORDERABLES [facility] [address] [place] [address] documented in this encounter Visit Diagnoses Not on filedocumented in this encounter Care Teams Plant Technician Relationship Specialty Start Date End Date Unknown, Provider, PCP - General 01/13/14 documented as of this encounter
--- OUTSIDE RECORDS SUMMARY | 2023-11-18 22:13 | XMS_ITS | Encounter Summary ---
Author Organization [facility] Address [facility] [place] [address] Care Team Providers Care Highway Painter Name Role Phone Ana eHr MD Primary Care Provider [phone] Encounter Details Date Type Department Care Team (Latest Contact Info) Description 10/28/2016 - 10/28/2016 11:59 PM EDT Hospital Encounter [place] [address] Ricky Lowry MD [facility] HEMATOLOGY/[place] [address] Discharge Disposition: Home Social History Tobacco Use [...] DXA Images (10/28/2016 12:00 AM EDT) Narrative [facility] - 04/24/2017 2:13 PM EST This exam is for storage only and is auto-finalizing. Ricky Lowry MD IMG FILM LIBRARY ORD ERABLES [place], [place] documented in this encounter Visit Diagnoses Not on filedocumented in this encounter Care Teams Highway Painter Relationship Specialty Start Date End Date Ana Her MD [address] [place] [address] PCP - General 07/29/13 documented as of this encounter
--- OUTSIDE RECORDS SUMMARY | 2023-11-18 22:13 | XMS_ITS | Encounter Summary ---
[place] [address] Care Team Providers Care Assistant General Manager Name Role Phone Unavailable Primary Care Provider Unavailabl e Encounter Details Date Type Department Care Team (Latest Contact Info) Description 12/08/2008 - 12/08/2008 11:59 PM EDT Hospital Encounter [place] [address] Jackie Cisneros APRN [address] [place] [address] Discharge Disposition: Home Social History Tobacco Use [...] Only Mammo (12/08/2008 12:00 AM EDT) Narrative [facility] - 02/23/2017 3:30 PM EDT This exam is for storage only and is auto-finalizing. Jackie Cisneros APRN IMG FILM LIBRARY ORD ERABLES NADINE Sethi documented in this encounter Visit Diagnoses Not on filedocumented in this encounter
--- OUTSIDE RECORDS SUMMARY | 2023-11-18 22:13 | XMS_ITS | Encounter Summary ---
[place] [address] Care Team Providers Care Senior Adults Director Name Role Phone Ana Her MD Primary Care Provider [phone] Reason for Visit * Reason Comments Establish Care * Consultation (Routine) - Specialty Diagnoses / Procedures Referred By Christiano t Referred To Contact Hematology and Oncology Diagnoses Other abnormal and inconclusive findings on diagnostic imaging of breast abnormal mammo, left breast Jackie Cisneros, WENDY [address] [place] [address] [facility] [address] [place] [address] Referral ID Status Reason Start Date Expiration Date V isits Requested Visits Authorized [id number] Consult, Test & Treat Connection Center 02/17/2017 05/20/2017 6 6 Encounter Details Date Type Department Care Team (Late st Contact Info) Description 03/03/2017 9:00 AM EDT Office Visit [place] [address] Malika Chen MD [facility] [place] [address] Argentina Sanchez, RN Malignant neoplasm of lower-outer [...] she will meet with medical and radiation ([facility]) oncologists after surgery. 4. Contact phone number for questions or concerns in the immediate post- operative period. 5. Comprehensive Breast Program Binder. 6. Post Breast Surgery Exercises handout created by physical therapists at [facility]. 7. Breast Cancer Treatment Process care map provided and reviewed. 8. Things to Consider...What I Wish I Knew advice from breast cancer patients handout provided. She verbalized understanding of the plan of care and states all her questions were answered. Twentyminutes was spent in education and providing support. Alma Delia has our contact information. She will call the welfare director to schedule surgery after she has her [...] was obtained which revealed IDC which is ER/IA+, her2-. She has no known breast masses, no adenopathy, no nipple discharge. Alma Delia had a bone scan in [place] which was read as possible metastasis in the left tibia. Of note- she fractured this area recently. She has recovered well. PMH HNT NIDDM not on meds Spinal stenosis Fractured left tibial plateau December, GERD FH: Maternal first cousin with breast cancer Brother with rectal cancer Sister with PE SH: lives alone. Has good support from sisters who live in [place]. Non smoker. Has a son who lives [...] 71 yo female with radiographic stage I ER/IA+, HER2- IDC of the left breast. No [...] positive documented in this encounter Care Teams Senior Adults Director Relationship Specialty Start Date End Date Ana Her MD [address] [place] [address] PCP - General 07/29/13 documented as of this encounter
--- OUTSIDE RECORDS SUMMARY | 2023-11-18 22:13 | XMS_ITS | Clinical Summary ---
Author Organization [facility] Address [address] [place] [address] Care Team Providers Care Wheel Roller Name Role Phone Unknown, Provider Primary Care [...] COVID-19 Vaccine ( season) 2023 Care Teams Wheel Roller Relationship Specialty Start Date End Date Unknown, Provider, PCP - General 01/13/14
--- OUTSIDE RECORDS SUMMARY | 2023-11-18 22:13 | XMS_ITS | Encounter Summary ---
[place] [address] Care Team Providers Care Want Ad Clerk Name Role Phone Unavailable Primary Care Provider Unavailabl e Encounter Details Date Type Department Care Team (Latest Contact Info) Description 03/19/2006 - 03/19/2006 11:59 PM EST Hospital Encounter [place] [address] Jackie Cisneros APRN [address] [place] [address] Discharge Disposition: Home Social History Tobacco Use [...] Only Mammo (03/19/2006 12:00 AM EST) Narrative [facility] - 02/23/2017 3:31 PM EDT This exam is for storage only and is auto-finalizing. Jackie Cisneros APRN G FILM LIBRARY ORD ERABLES NADINE Sethi documented in this encounter Visit Diagnoses Not on filedocumented in this encounter
--- OUTSIDE RECORDS SUMMARY | 2023-11-18 22:13 | XMS_ITS | Encounter Summary ---
[place] [address] Care Team Providers Care Cattle Farmer Name Role Phone Ana Her MD Primary Care Provider [phone] Reason for Visit * Reason Onset Date Comments Referral 07/29/2013 Encounter Details Date Type Department Care Team (Late st Contact Info) Description 07/29/2013 Telephone [place] [phone] Sophia Palacios Referral Social History Tobacco Use [...] on filedocumented in this encounter Care Teams Cattle Farmer Relationship Specialty Start Date End Date Ana Her MD [address] [facility] [address] [place] [address] PCP - General 07/29/13 documented as of this encounter
--- OUTSIDE RECORDS SUMMARY | 2023-11-18 22:13 | XMS_ITS | Encounter Summary ---
Author Organization [facility] [place] [address] Care Team Providers Care Flight Attendant Ramp Name Role Phone Ana Her MD Primary Care Provider [phone] Encounter Details Date Type Department Care Team (Latest Contact Info) Description 02/25/2017 1:32 PM EDT - 02/25/2017 1:35 PM EDT Hospital [place] [phone] Maryam Yee MD [facility] [place] [address] Abnormal mammogram Discharge Disposition: Home Social History [...] PM EDT 02/25/2017 3:02 PM EDT Narrative [facility] - 02/25/2017 3:02 PM EDT Specimen requisition ordered. ??Separate Pathology report to follow Enzo Burkett MD PATHOLOGY/CYTOLOGY O [facility] [place] [address] documented in this encounter Visit Diagnoses Diagnosis [...] mg documented in this encounter Care Teams Flight Attendant Ramp Relationship Specialty Start Date End Date Ana Her MD [address] [place] [address] PCP - General 07/29/13 documented as of this encounter
--- OUTSIDE RECORDS SUMMARY | 2023-11-18 22:13 | XMS_ITS | Encounter Summary ---
[place] [address] Care Team Providers Care Box Blank Machine Feeder Name Role Phone Unavailable Primary Care Provider Unavailabl e Encounter Details Date Type Department Care Team (Latest Contact Info) Description 11/12/2007 - 11/12/2007 11:59 PM EDT Hospital Encounter [place] [address] Jackie Cisneros APRN [address] [place] [address] Discharge Disposition: Home Social History Tobacco Use [...] Mammo (11/12/2007 12:00 AM EDT) Narrative [facility] - 02/23/2017 3:31 PM EDT This exam is for storage only and is auto-finalizing. Jackie Cisneros APRN IMG FILM LIBRARY ORD ERABLES NADINE Sethi documented in this encounter Visit Diagnoses Not on filedocumented in this encounter
--- OUTSIDE RECORDS SUMMARY | 2023-11-18 22:13 | XMS_ITS | Encounter Summary ---
[place] [address] Care Team Providers Care Adobe Layer Helper Name Role Phone Ana Her MD Primary Care Provider [phone] Reason for Visit * Reason Comments Low Back Pain Bilateral Hip Pain when standing or wal jaquelin Encounter Details Date Type Department Care Team (Late st Contact Info) Description 09/12/2014 11:20 AM EDT [place] [phone] Kris Benoit MD [facility] [place] [address] Neurogenic claudication due to lumbar spinal stenosis [...] pain free. Lumbar MRI from 08/16/2014 from [facility] is notable for multilevel degenerative changes L2-L3, L3-L4, L4-L5, L5-S1. At L2-L3, she has [id number] spinal stenosis, but she has no leg [...] claudication documented in this encounter Care Teams Adobe Layer Helper Relationship Specialty Start Date End Date Ana Her MD [facility] [address] [place] [address] PCP - General 07/29/13 documented as of this encounter
--- OUTSIDE RECORDS SUMMARY | 2023-11-18 22:13 | XMS_ITS | Encounter Summary ---
Author Organization [facility] [place] [address] Care Team Providers Care Asian Studies Program Chair Name Role Phone Ana Her MD Primary Care Provider [phone] Encounter Details Date Type Department Care Team (Latest Contact Info) Description 02/17/2017 - 02/17/2017 12:14 AM EDT Hospital Encounter [place] [phone] Maryam Yee MD [facility] [place] [address] Screening breast examination Discharge Disposition: Home Social [...] Mammo (02/17/2017 12:00 AM EDT) Narrative [facility] - 02/19/2017 1:59 PM EDT This exam is for storage only and is auto-finalizing. Maryam Yee MD IMG FILM LIBRARY O RDERABLES [place], [place] documented in this encounter Visit Diagnoses Diagnosis Screening breast examination (Not by Mammogram) Other screening breast examination documented in this encounter Care Teams Asian Studies Program Chair Relationship Specialty Start Date End Date Ana Her MD [address] [place] [address] PCP - General 07/29/13 documented as of this encounter
--- OUTSIDE RECORDS SUMMARY | 2023-11-18 22:13 | XMS_ITS | Encounter Summary ---
Author Organization [facility] Address [address] [place] [address] Care Team Providers Care Life Science Technical Officer Name Role Phone Unavailable Primary Care Provider Unavailabl e Encounter Details Date Type Department Care Team (Latest Contact Info) Description 01/10/2014 20:50 EDT - 01/10/2014 23:[address] [facility] [address] [place] [address] Unknown, Provider, Discharge Disposition: Home or Self Care Social History Tobacco Use Types Packs/Day Years Used Date Smoking Tobacco: Never Assessed Sex and Gender Information Value Date Recorded Sex Assigned at Not on file Gender Identity Not on file Sexual Orientation Not on file documented as of this encounter Discharge Disposition Disposition Code Departure Means Destination Home or Self Residential documented in this encounter Plan of Treatment Not on file documented as of this encounter Visit Diagnoses Not on filedocumented in this encounter
--- OUTSIDE RECORDS SUMMARY | 2023-11-18 22:13 | XMS_ITS | Encounter Summary ---
[place] [address] Care Team Providers Care Auto Parts Handler Name Role Phone Ana Her MD Primary Care Provider [phone] Encounter Details Date Type Department Care Team (Late st Contact Info) Description 07/26/2013 [place] [address] Ana Her MD [facility] [address] [place] [address] Social History Tobacco Use Types Packs/Day Years [...] is a Non-reportable exam Ana Her MD [facility] FILM LIBRARY ORD ERABLES documented in this encounter Visit Diagnoses Not on filedocumented in this encounter Care Teams Auto Parts Handler Relationship Specialty Start Date End Date Ana Her MD [address] [place] [address] PCP - General 07/29/13 documented as of this encounter
--- OUTSIDE RECORDS SUMMARY | 2023-11-18 22:13 | XMS_ITS | Encounter Summary ---
[place] [address] Care Team Providers Care Home Care Attendant Name Role Phone Ana Her MD Primary Care Provider [phone] Encounter Details Date Type Department Care Team (Late st Contact Info) Description 02/27/2017 Telephone [place] [phone] Argentina Sanchez RN Social History Tobacco Use [...] a 71 y.o. female with newly diagnosed ER/[place]+/HER2 corey pending left breast invasive mucinous cancer (left breast U/S guided biopsy [facility]25/2017 [facility] Alma Delia sounds positive and has support. She will have someone accompany her to appointments. She appears to be coping well but is anxious to meet with a breast surgeon to determine a treatment plan. Alma Delia have a bone SPECT done 1-2 months ago at [facility] and her doctor there questioned an area [...] for her review (a link to the [facility] Early Stage Breast Cancer program). The Breast [...] on filedocumented in this encounter Care Teams Home Care Attendant Relationship Specialty Start Date End Date Ana Her MD [address] [place] [address] PCP - General 07/29/13 documented as of this encounter
--- OUTSIDE RECORDS SUMMARY | 2023-11-18 22:13 | XMS_ITS | Encounter Summary ---
[place] [address] Care Team Providers Care Messaging Architect Name Role Phone Ana Her MD Primary Care Provider [phone] Encounter Details Date Type Department Care Team (Latest Contact Info) Description 04/24/2014 - 04/24/2014 11:59 PM EST Hospital Encounter [place] [address] Maryam Yee MD [facility] [place] [address] Screening breast examination Discharge Disposition: Home Social [...] Only Mammo (04/24/2014 12:00 AM EST) Narrative [facility] - 02/19/2017 1:46 PM EDT This exam is for storage only and is auto-finalizing. Maryam Yee MD IMG FILM LIBRARY O RDERABLES [place], [place] documented in this encounter Visit Diagnoses Diagnosis Screening breast examination (Not by Mammogram) Other screening breast examination documented in this encounter Care Teams Messaging Architect Relationship Specialty Start Date End Date Ana Her MD [address] [facility] [address] [place] [address] PCP - General 07/29/13 documented as of this encounter
--- OUTSIDE RECORDS SUMMARY | 2023-11-18 22:13 | XMS_ITS | Encounter Summary ---
[place] [address] Care Team Providers Care Gleason Gear Generator Name Role Phone Ana Her MD Primary Care Provider [phone] Encounter Details Date Type Department Care Team (Latest Contact Info) Description 03/03/2017 7:55 AM EDT Laboratory Appointment Lab [address] [place] [address] Malignant neoplasm of left breast in female, [...] 7:50 AM EDT) Neutrophils % 72.8 % [facility] Neutr Abs (ANC) 6.45(H) 1.70 - 6.10 x10(3)/[facility] Lymphocytes % 14.4 % [facility] Lymphocytes Abs 1.3 0.9 - 3.2 x10(3)/[facility]ORY Monocytes % 5.6 % [facility] Monocyte Abs 0.5 0.3 - 0.9 x10(3)/[facility]ORY Eosinophils % 6.1 % [facility] Eosinophils Abs 0.5(H) 0.0 - 0.4 x10(3)/[facility] Basophils % 0.6 % [facility] Basophils Abs 0.0 0.0 - 0.1 x10(3)/[facility] Immature Gran % 0.50 % [facility] Comment: Immature granulocytes(IG's)percentage and absolute count will include metamyelocytes, myelocytes, and promyelocytes. Blood smears from CBCs yielding IG's will be scanned manually for concordance. If this scan disagrees with the automated IG or if promyelocytes are noted, a manual differential will be performed. Elenita Gran Abs 0.04 0.00 - 0.04 x10(3)/ L [facility] Blood specimen (specimen) 03/03/2017 7:50 AM EDT 03/03/2017 8:03 AM EDT Narrative Resulting Agency Comment Spec In Lab Malika Chen MD HEMATOLOGY ORDERABL ES [facility] [place] [address] * (ABNORMAL) Hemogram (03/03/2017 7:50 AM EDT) WBC 8.8 4.0 - 9.5 x10(3)/[facility] LABORATORY RBC 3.80(L) 4.00 - 5.21 x10(6)/[facility] Hemoglobin 12.3 11.7 - 15.5 gm/dL [facility] Hematocrit 36.3 35.7 - 45.8 % [facility] MCV 95.5(H) 82.6 - 94.4 fL [facility] MCH 32.4(H) 27.1 - 32.0 pg [facility] MCHC 33.9 31.7 - 35.0 gm/dL [facility] Platelets 156 145 - 357 x10(3)/[facility] LABORATORY RDWSD 48.3(H) 37.0 - 46.0 [facility] RDWCV 13.9 11.5 - 14.1 % [facility] MPV 11.9 7.6 - 12.9 [facility] nRBC % Auto 0.0 % [facility] nRBC Abs Auto 0.000 0.000 - 0.000 x10(3)/[facility] Blood specimen (specimen) 03/03/2017 7:50 AM EDT 03/03/2017 8:03 AM EDT Narrative Resulting Agency Comment Spec In Lab Malika Chen MD HEMATOLOGY ORDERABL ES [facility] [place] [address] * (ABNORMAL) Comprehensive metabolic panel (non-fasting) (03/03/2017 7:50 AM EDT) Glucose Lvl 139 65 - 199 mg/dL [facility] Comment:Diabetes: >=200 mg/d L plus symptoms BUN 20(H) 8 - 18 mg/dL [facility] Creatinine 0.95 0.70 - 1.20 mg/dL [facility] Sodium 141 135 - 145 mmol/L [facility] Potassium 4.8 3.5 - 5.0 mmol/L [facility] Comment: Please note: ??Patients with WBC >100,000 may have falsely elevated Potassium levels. ??For accurate Potassium quantification in these patients send serum separator tube (gold top) for subsequent determinations. ??Contact the Clinical Chemistry Laboratory if there are any questions. Chloride 101 98 - 107 mmol/L [facility] CO2 26 22 - 31 mmol/L [facility] Anion Gap 14 5 - 15 mmol/L [facility] Calcium 9.3 8.5 - 10.5 mg/dL [facility] Total Protein 6.9 6.1 - 8.0 gm/dL [facility] Albumin 4.2 3.2 - 5.2 gm/dL [facility] AST 17 0 - 30 unit/L [facility] ALT 16 0 - 30 unit/L [facility] Alk Phos 75 40 - 104 unit/L [facility] Total Bilirubin 0.5 0.2 - 1.3 mg/dL [facility] Estimated GFR 58(L) >=60 [facility] Comment: The reported eGFR should be multiplied by 1.2 for patients. The MDRD is not an appropriate measure of renal function for patients with body mass extremes or in patients with acute kidney failure. http://[employer].Dextr/DHnkdep http://[employer].Dextr/DHMCnkf Blood specimen (specimen) 03/03/2017 7:50 AM EDT 03/03/2017 8:03 AM EDT Narrative Resulting Agency Comment Spec In Lab Malika Chen MD CHEMISTRY ORDERABLE S [facility] [place] [address] documented in this encounter Visit Diagnoses Diagnosis Malignant neoplasm of left breast in female, estrogen receptor positive, unspecified site of breast documented in this encounter Care Teams Gleason Gear Generator Relationship Specialty Start Date End Date Ana Her MD [address] [facility] [address] [place] [address] PCP - General 07/29/13 documented as of this encounter
[2023-11-18 22:22] LABS: Troponin I < 50 ng/L (< or =60)
[2023-11-19] VITALS (7 sets, daily range): BP systolic 91–139; BP diastolic 60–82; PULSE 93–116; RESP 14–18; TEMP 36.2–37.3; O2SAT 94–126
--- NOTE | 2023-11-19 | DI.US_ITS ---
APPROVED REPORT EXAM: Comprehensive 2D, Doppler, and color-flow Echocardiogram Patient Location: In-Patient Room/Bed: 212 [address]seating Machine Set Up Operator: Radha Greenberg RDCS (AE) Indications: CHF, Pericardial effusion Other Information Study Quality: Adequate Conclusion Mild concentric left ventricular hypertrophy. Ejection fraction is 55%. Wall motion is grossly norm al Normal right ventricular size and function Left atrium is moderately dilated. Right atrium is mildly dilated There is a bioprosthetic aortic valve. Mean gradient is 6 mmHg. There is no aortic regurgitation Normal mitral valve with moderate regurgitation Normal tricuspid valve with mild regurgitation. Estimated right ventricular systolic pressure is 22 mmHg Ascending aorta measures 3.77 cm No significant pericardial effusion Wall motion Left Ventricle The left ventricle is normal size. The overall left ventricular systolic function appears normal. Arr hythmia throughout exam, beat to beat variation. Mild concentric left ventricular hypertrophy. Region al wall motion is not well visualized but grossly normal. There is no ventricular septal defect visua lized. LVEF is 55%. Right Ventricle Right ventricle is grossly normal in size. The right ventricular systolic function is normal. Pacemak er lead is present in the right ventricle. Atria Left atrium is moderately dilated. Right atrium is mildly dilated. The interatrial septum is intact w ith no evidence for an atrial septal defect. Aortic Valve No aortic regurgitation is present. TAVR aortic valve. Mitral Valve The mitral valve is normal in structure. No evidence of mitral valve stenosis. Moderate mitral regur gitation. Tricuspid Valve The tricuspid valve is normal in structure. There is no tricuspid valve stenosis. Mild tricuspid regu rgitation. The RVSP is 22.4_ mmHg. Pulmonic Valve The pulmonary valve is normal in structure. There is no pulmonic valvular stenosis. Trace pulmonic re gurgitation. Great Vessels The aortic root is normal in size. The ascending aorta is mildly dilated. Aortic arch is not well vis ualized. IVC is normal in size and collapses >50% with inspiration. Pericardium There is no pericardial effusion. 2D Dimensions IVSD d PLAX 1.10 cm F: 0.6-1.0 Ao Root d 2.11 cm F: 2.7 - 3.3 LVPW d PLAX 1.10 cm F: 0.6 - 1.0 Ao Asc Diam d 3.77 cm F: 2.3 - 3.1 LVID d PLAX 5.06 cm F: 3.8 - 5.2 LVDs 3.61 cm F: 2.2 - 3.5 LV EF Teichholz 54.9 % FS 28.63 % LV EDV (Teich) 121.8 mL LV ESV (Teich) 54.9 mL M-Mode TAPSE 1.71 cm (M/F) >1.7 LA Volume LA Length A4C 6.1 cm LA Length A2C 6.1 cm LA Area A4C s 26.21 cm2 LA Area A2C s 27.35 cm2 LA Vol A4C A-L 95.20 mL LA Vol A2C A-L 103.99 mL LA Vol Biplane A-L 99.6 mL LA Vol/BSA A4C A-L LA Vol/BSA A2C A-L LA Vol/BSA BP A-L 52.7 mL/m2 LA Vol A4C MOD 90.0 mL LA Vol A2C MOD 97.7 mL LA Vol BP MOD 93.6 mL RA Volume RA Area A4C 18.2 cm2 RA ESV A4C (A-L) 49.4mL RA Vol/BSA A4C A-L RA Length A4C 5.7 cm RA ESV A4C (MOD) 47.7mL LV Diastology MV E Vmax 1.00 (0.4-1.3 m/s) Aortic Valve AoV Vmax 1.58 m/s LVOT Vmax 0.98 m/s AoV Peak Grad 10.0 mmHg LVOT Peak Grad 3.8 mmHg AoV Area (Vmax) 1.99 cm2 LVOT VTI 0.160 m AoV VTI 0.281 m LVOT Mean Beto. 0.70 m/s AoV Mean Beto. 1.16 m/s LVOT Mean Grad 2.2 mmHg AoV Mean Grad 6.1 mmHg LVOT SV 51.50 mL AoV Area (VTI) 1.83 cm2 LVOT Diam s 2.00 cm Velocity Ratio 0.62 Mitral Valve MV Vmax TIPS 1.00 m/s MV Mean Grad 1.9 (<2mmHg) MV Area PHT 5.35 cm2 MV VTI 0.234 m Pulmonary Valve PV Vmax 0.59 (0.5-1.5 m/s) RVOT Vmax 0.46 m/s PV Peak Grad 1.4 mmHg RVOT Peak Gr. 0.8 mmHg PV Mean Beto 0.46 m/s RVOT VTI 0.092 m PV Mean Grad 0.9 mmHg RVOT Mean Gr. 0.5 mmHg Tricuspid Valve RA Pressure 3.00 mmHg TR Vmax 2.20 m/s TV S' 0.13 m/s TR Peak Grad 19.4 mmHg RVSP (TR) 22.4 mmHg
[2023-11-19] MEDS: Gabapentin 300 MG CAP PO ×3 (00:24→22:47)
[2023-11-19] MEDS: Furosemide 40 MG/4 ML VIAL IVP ×3 (06:09→22:47)
[2023-11-19] MEDS: Levothyroxine 100 MCG TAB PO (06:09)
[2023-11-19 06:58] LABS: Abs Immature Grans 0.02 10^3/uL (0.0-0.06); Absolute Basophil Count 0.03 10^3/uL (0.0-0.2); Absolute Eosinophil Count 0.31 10^3/uL (0.0-0.7); Absolute Monocyte Count 0.46 10^3/uL (0.1-0.8); Absolute Neutrophil Count 5.25 10^3/uL (1.2-6.7); Basophils % 0.4 %; Eosinophils % 4.4 %; HCT 30.5 % (36.0-46.0); HGB 9.8 g/dL (11.2-15.7); Immature Grans % 0.3 %; Lymphocytes % 14.1 %; MCH 33.4 pg (27.0-33.0); MCHC 32.1 % (32.0-36.0); MCV 104 fL (80-95); MPV 10.8 fL (8.0-11.0); Monocytes % 6.5 %; Neutrophils % 74.3 %; Platelet Count 112 10^3/uL (130-400); RBC 2.93 10^6/uL (3.93-5.22); RDW 14.4 % (11.7-14.6); RDW-SD 54.9 fL; WBC 7.07 10^3/uL (4.4-10.8)
[2023-11-19 07:21] LABS: Iron 45 ug/dL (50-170); Total Iron Binding Capacity 284 ug/dL (250-450); Transferrin Sat 16 % (15-50)
[2023-11-19 07:45] LABS: Anion Gap 8.8 mmol/L (3-11); BUN 12 mg/dL (7-18); CO2 31.2 mmol/L (21.0-32.0); CREATININE 0.8 mg/dL (0.55-1.02); Calcium 8.5 mg/dL (8.5-10.1); Chloride 107 mmol/L (98-107); Estimated GFR 75.37 (mL/min/1.73m2); Ferritin 169 ng/mL (8-252); Folate 19.3 ng/mL (8.6-20.0); Glucose 93 mg/dL (74-106); Magnesium 1.8 mg/dL (1.8-2.4); Potassium 3.2 mmol/L (3.5-5.1); Sodium 147 mmol/L (136-145); Vitamin B12 1124 pg/mL (193-986)
[2023-11-19] MEDS: Ascorbic Acid 500 MG TAB PO (08:05)
[2023-11-19] MEDS: Carvedilol 12.5 MG TAB PO ×2 (08:06→17:03)
[2023-11-19] MEDS: Spironolactone 25 MG TAB PO (08:06)
[2023-11-19] MEDS: Ferrous Sulfate 325 MG TAB PO (08:07)
[2023-11-19] MEDS: Magnesium Gluconate 500 MG TAB 250 MG PO ×2 (08:07→22:46)
[2023-11-19] MEDS: Cholecalciferol (Vitamin D3) 1,000 UNIT TAB 2000 UNITS PO (08:07)
[2023-11-19] MEDS: Allopurinol 100 MG TAB 200 MG PO (08:08)
[2023-11-19] MEDS: Potassium Chloride 10 MEQ CAPCR 20 MEQ PO ×2 (08:08→13:53)
[2023-11-19] MEDS: Calcium Carbonate 1.5 GM TAB PO (08:09)
[2023-11-19] MEDS: Cyanocobalamin 500 MCG TAB 1000 MCG PO (08:09)
[2023-11-19] MEDS: Normal Saline Flush 10 ML SYR IVP ×2 (08:09→23:50)
[2023-11-19] MEDS: Colestipol 1 GM TAB 2 GM PO ×2 (12:52→18:53)
--- NOTE | 2023-11-19 14:21 | CHAPLAIN ---
Alma Delia was sitting up on the edge of the bed when I visited. She said she is feeling a bit better. She came in last night, and eventually got some sleep. Alma Delia is part of [place] [employer]. She said that because of her mobility issues she hasn't been able to go to [employer]ast[employer] recently and hasn't met Fr. Lomax yet so she gave me permission to contact Fr. Lomax to ask home to visit Alma Delia. Some of Alma Delia's family are traveling in [place] for her granddaughter's birthday even. I will continue to visit.
--- NOTE | 2023-11-19 14:39 | PDOC.CMIN ---
Date of service: 11/19/23 Time of Service: 14:39 Care Management Initial Assmt Initial Assessment Reason for Hospitalization: PAV w/RVR, CHF Functional Status/Living Situation Town of Residence: [facility] Resides with: Alone Significant Other/Family: Out of area Natural Supports: Daughter; Vanessa, son; Keith. Employment Status: Retired ([employer] ) Instrumental Activities of Daily Living (ADLs): Independent Medications Medication Management: No Issues/Barriers identified Physical Functioning/Mobility Assistive Device: Cane, FWW, CPAP: [place]. Mobility limiting social activities; attending [employer]. Advance Directives Advance Directives: Do you have an Advance Directive: Y 07/21/23 10:14 AD On File at [facility]: N 07/21/23 10:14 Date Asked 11/18/23 11/18/23 15:05 AD Date Reviewed COLST On File at [facility] COLST Date Scanned Comment: Vanessa as agent, Keith as alternate Code Status Resuscitation Status Full Code Insurance Coverage/Financial Issues Insurance: Medicare Care Team Visit Care Team Role Provider Type Ana Her MD Primary Care Provider [facility] STAFF PHYSICIAN AMI Payton Emergency Provider [employer] Jim Perdomo MD Admit Provider [facility] STAFF PHYSICIAN Attending Provider Discharge Potential Discharge Needs: Consult Consult Services Needed: Cardiology (Dr Burkett at [facility]) and Imaging/labs (ECHO, ASHLEY, Troponins) Anticipated Barriers to Discharge: Medical Status (Per [employer] consult: recommendation for admission for diuresis, afib rate control and follow up ECHO to evaluate her pericardial effusion) Patient/Family Education Needs: Review discharge instructions, discuss Ask Me Three Transportation: Private vehicle Plan: Alma Delia continues to be closely monitored and treated, anticipate new HH/RN orders and transport home with family. CM following. [facility] All Active Problems (Updated 11/21/23 @ 00:01 by JAMAL GODINEZ) Macrocytic anemia (Acute) Status post cardiac pacemaker procedure (Acute) placed at [facility] 10/22/23 [employer]onic dual champe4 S/P TAVR (transcatheter aortic valve replacement) (Acute) 10/20/23 [facility] 10/20/23 [facility] Atrial fibrillation (Chronic) Congestive heart failure (Chronic) Spinal stenosis, lumbar (Acute) Osteopenia (Acute) GERD (gastroesophageal reflux disease) (Chronic) Chronic pain of left lower extremity (Acute) Arthritis (Acute) Afib (Chronic) s/p lpulm vein isolation 05/2018, Xarelto Leg cramps (Acute) Venous stasis (Acute) Aortic stenosis (Chronic) congenital bi-cuspid valve Per pt. states she see's mingo burkett, at [facility] Cardiology Anemia, iron deficiency (Acute) CKD (chronic kidney disease) stage 3, GFR 30-59 ml/min (Acute) Anticoagulation adequate (Acute) Xarelto RACHAEL (obstructive sleep apnea) (Chronic) Chronic venous insufficiency (Acute) HTN (hypertension) (Chronic) Hypothyroidism (Chronic) Hyperlipidemia (Acute) Peripheral neuropathy (Acute) Leg edema (Acute) Other specified polyneuropathies (Acute) Nail dystrophy (Acute) Toe pain, left (Acute) Toe pain, right (Acute) Tinea unguium (Acute) Other specified peripheral vascular diseases (Acute) Difficulty in walking, not elsewhere classified (Acute) Medical History Trigger finger, right little finger Injection: 12/18/2022 History of blood transfusion Diarrhea Foot pain, right Skin fissure Sciatica of left side Breast cancer in female Hiatal hernia COVID-19 Trigger finger, left index finger Depo-Medrol injection: 08/13/2020 Fatigue COLÓN (dyspnea on exertion) Cervical polyp Back pain Gout of ankle Trigger finger, right ring finger Carpal tunnel syndrome Acute back pain with sciatica Chondrocalcinosis of left knee Injected: 01/03/2020, 09/09/2021 PUD (peptic ulcer disease) Breast cancer left breast Surgical History Left carpal tunnel syndrome S/P L ECTR: 12/31/2022 Hx of inguinal hernia repair H/O lumbosacral spine surgery Lumbar Foraminotomy L4 History of carpal tunnel surgery of right wrist (01/24/20) History of ankle surgery right w/ screws History of laminectomy Trigger finger, left little finger s/p release 05/10/2019 Colonoscopy - MAC (03/17/17) Cholecystectomy Family History Grandmother Colon cancer Mother CAD (coronary artery disease) Father Stroke Sister Pneumonia Brother Drug overdose Maternal Grandfather Colon cancer Social History Smoking/Tobacco Use Status: Never Smoking risk assessment performed?: Yes Alcohol Intake: current Alcohol Intake frequency: a few times a week Alcohol type: beer, wine and hard liquor Drug use: Never Substance use type: does not use Household members: none Housing: house Number of Children: 2 current occupation: Retired Current gender identity: female What type of physical activity do you participate in: independent ambulation Do you feel safe at home: Yes Do you feel safe in your relationship?: Yes SDOH(Care Management) Screening Will the Patient Participate in the Screening?: Yes Do you worry about having a steady place to live?: no Problems where you live: no known problems In the past 12 months, have you had to go without electric, gas, oil or water in your home?: no Have you or anyone in your house had to go without enough food to eat?: no Has lack of transportation kept you from medical appointments or from doing things needed for daily living?: yes Has anyone in your support network made you feel unsafe for any reason?: no Social Determinants of Health Comments(SDOH Details): pt reports 13 stairs. pt reports she does not drive anymore. pt uses RTC, town taxi and family. Health Related Social Needs Health related social needs: transportation insecurity(Z59.82) Anticipated HH Services Anticipated HH Services at Discharge [facility] Needed, RN. Anticipated Date of Discharge: 11/20/23. Following Provider: Ana Her.
--- NOTE | 2023-11-19 19:56 | PGE_ITS ---
Date of Service Date of service: 11/19/23 Time of Service: 19:56 Assessment and Plan Assessment and plan (1) Pericardial effusion: Status: Acute Assessment and plan: -presumed d/t pacemaker complication -repeat TTE without acute findings and showed resolution of previously seen pericardial effusion -hold any AC; on SCD instead of chemoprophylaxis for DVT prevention (2) Atrial fibrillation: Status: Chronic Assessment and plan: -adjust carvedilol dosing; goal is for HR <90 at rest and <120 w/ activity; -increased carvedilol dose from 12.5mg BID to 25mg BID -if this does not improve patients HR would then reach out to Dr Burkett at [facility] to discuss echo results and plans for further follow up, i.e. ASHLEY as well as management of afib and CHF Qualifiers: Atrial fibrillation type: longstanding persistent Qualified Code(s): I48.11 - Longstanding persistent atrial fibrillation (3) Congestive heart failure: Status: Chronic Assessment and plan: -initially unclear as to whether this is HFPEF or HFREF -however, echo showed EF 50% so likley HFpEF -continue IV lasix overnight, continue spironolactone Qualifiers: Heart failure type: unspecified Heart failure chronicity: acute on chronic Qualified Code(s): I50.9 - Heart failure, unspecified (4) S/P TAVR (transcatheter aortic valve replacement): Start date: 10/20/23 Status: Acute (5) Status post cardiac pacemaker procedure: Start date: 10/20/23 Status: Acute (6) Macrocytic anemia: Status: Acute Assessment and plan: check iron levels, B12, folate, monitor. Subjective Subjective Interval history since last seen: Patient states that she feels significantly better though she is concerned that her HR is in the high 90's at rest and goes up to the 110's with ambulation Exam Narrative Exam Narrative: well appearing older female sitting up in the chair in no acute distress, AOx4, heart irregularly irregular, lungs CTAB, abdomen soft, non-tender, non-distended Objective Last Vital Signs Temp 98.4 F 11/19/23 15:58 Pulse 116 H 11/19/23 17:00 Resp 15 11/19/23 15:58 BP 112/75 11/19/23 15:58 Pulse Ox 126 H 11/19/23 17:00 Laboratory Results - last 24 hr 11/18/23 11/18/23 11/18/23 18:33 21:30 23:03 WBC RBC Hgb Hct MCV MCH MCHC RDW Plt Count MPV Immature Gran % Neutrophils % Lymphocytes % Monocytes % Eosinophils % Basophils % Nucleated RBC % Absolute Neutrophils Absolute Lymphocytes Absolute Monocytes Absolute Eosinophils Absolute Basophils VBG pH Cancelled VBG pCO2 Cancelled VBG pO2 Cancelled VBG HCO3 Cancelled VBG Total CO2 Cancelled VBG O2 Saturation Cancelled VBG Base Excess Cancelled Sodium Potassium Chloride Carbon Dioxide Anion Gap BUN Creatinine Est GFR (CKD-EPI 2020) Glucose Calcium Magnesium Iron TIBC Transferrin % Sat Ferritin Troponin I < 50 Vitamin B12 Folate Urine RBC Negative Urine WBC 3-5 Ur Epithelial Cells Many Urine Crystals Negative Urine Bacteria Few Urine Mucus Trace Ur Culture Indicated? No 11/19/23 06:05 WBC 7.07 RBC 2.93 L Hgb 9.8 L Hct 30.5 L MCV 104 H MCH 33.4 H MCHC 32.1 RDW 14.4 Plt Count 112 L MPV 10.8 Immature Gran % 0.3 Neutrophils % 74.3 Lymphocytes % 14.1 Monocytes % 6.5 Eosinophils % 4.4 Basophils % 0.4 Nucleated RBC % 0.0 Absolute Neutrophils 5.25 Absolute Lymphocytes 1.00 L Absolute Monocytes 0.46 Absolute Eosinophils 0.31 Absolute Basophils 0.03 VBG pH VBG pCO2 VBG pO2 VBG HCO3 VBG Total CO2 VBG O2 Saturation VBG Base Excess Sodium 147 H Potassium 3.2 L Chloride 107 Carbon Dioxide 31.2 Anion Gap 8.8 BUN 12 Creatinine 0.8 Est GFR (CKD-EPI 2020) 75.37 Glucose 93 Calcium 8.5 Magnesium 1.8 Iron 45 L TIBC 284 Transferrin % Sat 16 Ferritin 169 Troponin I Vitamin B12 1124 H Folate 19.3 Urine RBC Urine WBC Ur Epithelial Cells Urine Crystals Urine Bacteria Urine Mucus Ur Culture Indicated? PAWSS Have you Been Recently Intoxicated or Drunk Within the Last 30 days?: No Have you Ever Experienced Previous Episodes of Alcohol Withdrawal?: No Have you ever Experienced Withdrawal Seizures?: No Have you ever Experienced Delirium Tremens(DT)s?: No Have you ever undergone Alcohol Rehabilitation Treatment (i.e, inpt ot outpatient treatment programs)?: No Have you ever Experienced Blackouts?: No Have you ever Combined Alcohol with other Downers within the last 90 days?: No Have you ever Combined Alcohol with any other Substance of Abuse during the last 90 days?: No Positive Blood Alcohol level on Presentation? [PCS.BAL]: No Evidence of Increased Autonomic Activity (i.e. HR>120, tremor, sweating, agitation, nausea)?: No Result: 0 Time Spent with Patient Time Spent with Patient: >50 minutes Time was spent: preparing to see the patient(eg.review tests), obtaining and/or reviewing separately otained hiistory, ordering medications,tests, procedures, referring, communicating with other health home visit field care manager, indepentently interpreting results, counseling the patient and care coordination
[2023-11-19] MEDS: Atorvastatin 40 MG TAB PO (22:47)
[2023-11-20] MEDS: Potassium Chloride 10 MEQ CAPCR 20 MEQ PO (01:05)
[2023-11-20 03:59] VITALS: BP 99/75; PULSE 103; RESP 16; TEMP 36; O2SAT 90
[2023-11-20] MEDS: Levothyroxine 100 MCG TAB PO (06:20)
[2023-11-20 07:08] LABS: Anion Gap 6.8 mmol/L (3-11); BUN 19 mg/dL (7-18); CO2 33.2 mmol/L (21.0-32.0); Calcium 8.9 mg/dL (8.5-10.1); Chloride 100 mmol/L (98-107); Estimated GFR 57.66 (mL/min/1.73m2); Glucose 115 mg/dL (74-106); Potassium 3.6 mmol/L (3.5-5.1); Sodium 140 mmol/L (136-145)
[2023-11-20 07:32] VITALS: BP 130/89; PULSE 98; RESP 15; TEMP 36.4; O2SAT 96
[2023-11-20] MEDS: Magnesium Gluconate 500 MG TAB 250 MG PO (07:52)
[2023-11-20] MEDS: Calcium Carbonate 1.5 GM TAB PO (07:52)
[2023-11-20] MEDS: Cholecalciferol (Vitamin D3) 1,000 UNIT TAB 2000 UNITS PO (07:53)
[2023-11-20] MEDS: Gabapentin 300 MG CAP PO (07:53)
[2023-11-20] MEDS: Ascorbic Acid 500 MG TAB PO (07:54)
[2023-11-20] MEDS: Lisinopril 10 MG TAB PO (07:54)
[2023-11-20] MEDS: Spironolactone 25 MG TAB PO (07:54)
[2023-11-20] MEDS: Carvedilol 12.5 MG TAB 25 MG PO (07:54)
[2023-11-20] MEDS: Allopurinol 100 MG TAB 200 MG PO (07:54)
[2023-11-20] MEDS: Cyanocobalamin 500 MCG TAB 1000 MCG PO (07:54)
[2023-11-20] MEDS: Ferrous Sulfate 325 MG TAB PO (07:54)
[2023-11-20] MEDS: Normal Saline Flush 10 ML SYR IVP (07:55)
[2023-11-20] MEDS: Colestipol 1 GM TAB 2 GM PO (09:30)
[2023-11-20 11:20] VITALS: BP 106/62; PULSE 88; RESP 18; TEMP 36.6; O2SAT 95
[2023-11-20 13:14] LABS: Transferrin 188 mg/dL (201-352)
--- NOTE | 2023-11-20 13:35 | PHA.REVIEW2 ---
Pharmacy Admission Review Admission Clinical Review Admission Pharmacy Review: Macrocytic anemia (Acute) Status post cardiac pacemaker procedure (Acute) S/P TAVR (transcatheter aortic valve replacement) (Acute) Pericardial effusion (Acute) No Known Allergies Allergy (Verified 01/12/23 09:32) Resuscitation Status Full Code Height 5 ft 4 in Weight 83.9 kg Pharmacy Admission Review Renal Dosing Renal Dosing: BUN 19 mg/dL (7-18) H 11/20/23 06:40 Creatinine 1.0 mg/dL (0.55-1.02) 11/20/23 06:40 Medications needing adjustments: Reviewed (CrCl 48.54 mL/min, BUN increased from 12) List of meds needing interventions: Current medications are okay Anticoagulation Anticoagulation: Hgb 9.8 g/dL (11.2-15.7) L 11/19/23 06:05 Hct 30.5 % (36.0-46.0) L 11/19/23 06:05 Plt Count 112 10^3/uL (130-400) L 11/19/23 06:05 INR 1.0 (0.9-1.1) 11/18/23 15:45 Creatinine 1.0 mg/dL (0.55-1.02) 11/20/23 06:40 DVT Prophylaxis: Reviewed (SCDs) Relevant Labs Relevant Labs: Sodium 140 mmol/L (136-145) 11/20/23 06:40 Potassium 3.6 mmol/L (3.5-5.1) 11/20/23 06:40 Chloride 100 mmol/L (98-107) 11/20/23 06:40 Magnesium 1.8 mg/dL (1.8-2.4) 11/19/23 06:05 Electrolytes, C-Reactive P, ESR: Reviewed (glucose 115) Cardiac Review Cardiac Review: Troponin I < 50 ng/L (< or =60) 11/18/23 21:30 NT-Pro-B Natriuret Pep 3052 pg/mL (<300) H 11/18/23 15:45 BP, HR, EF%: Reviewed (BP and HR WNL) QTc Review QTc: Reviewed (523 from 11/18/23) IV to PO Switch IV Medications: Reviewed Home Meds Home Med List reviewed: Reviewed Relevent Home Meds Not ordered & why?: furosemide (had order for IVP q8h, was discontinued), Xarelto (on hold per H+P) Current Meds Current Medication Order Review: Reviewed
[2023-11-20 15:36] VITALS: BP 80/55; PULSE 85; RESP 18; TEMP 36.9; O2SAT 96
[2023-11-20 15:44] VITALS: BP 100/70
--- NOTE | 2023-11-20 15:48 | DSE_ITS ---
Date of service: 11/20/23 Time of Service: 15:48 DS: Diagnosis Discharge Diagnosis (1) Pericardial effusion: Status: Acute (2) Atrial fibrillation: Status: Chronic (3) Congestive heart failure: Status: Chronic Asessment and Plan: acute on chronic, preserved LVEF (4) S/P TAVR (transcatheter aortic valve replacement): Status: Acute (5) Status post cardiac pacemaker procedure: Status: Acute (6) Macrocytic anemia: Status: Acute Discharge Plan Disposition Patient Disposition: Home Condition: Good Discharge Details Reason For Visit: PAF W/RVR,CHF Admit Date/Time: 11/18/23 21:17 Admit Provider: Jim Perdomo Attending Provider: Jim Perdomo Primary Care Provider: Ana Her [facility] Course Hospital Course: 78 yr female w/ hx of PAF, recurrent despite prior ablation, who underwent TAVR for and pacemaker both performed at [facility] ([facility] in [place], [place] 10/20/23, who presented to [facility] with weeks of progressive exertional dyspnea associated with tachycardic atrial fibrillation in the 110s-120s. ED evaluation included CTA chest which did not show P.E. but demonstrated cardiomegaly, small posterior pericardial effusion, and small left pleural effusion as well as mild pulmonary edema. BNaP was elevated to 3052 but troponins were negative. Her EKG showed afib with RBBB and LAFB. She had leg swelling but venous ultrasound showed no DVT. The case was discussed with her primary assembler ping pong table at [facility] Dr. Burkett and she was admitted for CHF and treated with 40mg IV furosemide and improved rate control. She was given 3 additional doses of IV furosemide and diuresed well with resolution of her dyspnea and lower extremity edema. Her carvedilol was titrated up to 25mg BID. Echocardiogram showed presevered LVEF of 55%, mild concentric LVH, noram RV size and function, functioning bioprosthetic aortic valve, and moderate MR. The pericardial effusion seen on the CT scan had resolved. She was sent home on once daily furosemide at 80mg to match the 40mg IV that worked for her while inpatient. We discussed this may be stopped or changed based on clinical and laboratory follow up. We discussed daily weights as well as blood pressure and pulse monitoring. As above her carvedilol was increased signficantly from 6.25mg to 25mg BID. Dr. Burkett had recommended resting HR <90 and <120 with activity, and she was just below this threshold on discharge and feeling well. Her lisinopril was decreased to 5mg to keep her blood pressure from getting too low. Macrocytic anemia and mild thrombocytopenia were noted. B12 and folate levels were normal. The patient requests referral to local cardiology for ongoing follow up along with seeing her PCP Dr. Her. Home Meds and New Rx's Prescriptions: New furosemide 80 mg tablet 80 mg PO DAILY Qty: 30 0RF carvedilol 25 mg tablet 25 mg PO BID Qty: 60 2RF Rx Instructions: must administer with a meal/food lisinopril 5 mg tablet 5 mg PO DAILY Qty: 30 0RF Continued calcium carbonate 600 mg calcium (1,500 mg) Tablet 600 mg PO DAILY ascorbic acid (vitamin C) [Vitamin C] 500 mg Tablet 500 mg PO DAILY ferrous sulfate 325 mg (65 mg iron) Tablet 325 mg PO DAILY magnesium 250 mg Tablet 250 mg PO BID tolnaftate [Antifungal (tolnaftate)] 1 % cream 1 applic topical DAILY Qty: 30 0RF allopurinol 100 mg tablet 200 mg PO DAILY Patient Comments: 02.11.17 Pt states down to Qday.HE cholecalciferol (vitamin D3) 2,000 unit tablet 2,000 unit PO DAILY spironolactone 25 mg tablet 25 mg PO DAILY Xarelto 20 mg tablet 20 mg PO DAILY Rx Instructions: must administer with evening meal gabapentin 300 mg capsule 300 mg PO BID Rx Instructions: no abrupt cessation cyanocobalamin (vitamin B-12) [Vitamin B-12] 100 mcg tablet 1,000 mcg PO DIRECTED atorvastatin [Lipitor] 40 MG tablet 40 mg PO QPM colestipol 1 gram tablet 1 g PO BID PRN PRN (Reason: Dx microscopic colitis) levothyroxine 100 mcg tablet 100 mcg PO DAILY tramadol 50 mg tablet 50 mg PO Q6H PRNQty: 8 0RF Changed acetaminophen 500 mg tablet 1,000 mg PO TID PRN (Reason: Pain) Qty: 90 0RF Discontinued carvedilol 6.25 mg tablet 6.25 mg PO BID Rx Instructions: must administer with a meal/food lisinopril 10 mg tablet 10 mg PO DAILY furosemide 40 mg tablet 40 mg PO DAILY Discharge Instructions Instructions: Heart Failure, Adult (DC), Heart failure and atrial fibrillation Additional Instructions: Monitor your weight, blood pressure, and pulse daily. An [id number] automatic blood pressure cuff works well. Record these numbers to share with your primary care and cardiology team. Pay attention to the changes in your heart medication. Carvedilol and furosemide are higher, and lisinopril is less. We have placed a referral to our local assembler ping pong table Dr. Maravilla. Referrals: Harmony Maravilla MD [ [facility] STAFF PHYSICIAN] - (78 yo F s/p TAVR and pacer at [facility] in October 2023, admitted with HFpEF, tachycardic. Improved with diuresis and increased beta chuckie. Would like local follow up. ) Activity:: Activity as Tolerated Equipment/Supplies:: blood pressure monitor Diet:: Low Sodium Discharge Orders Discharge Orders: Discharge Order (Routine); Ordered 11/20/23 Ordered By: aHns Fisher DS: Summary Time Spent with Patient providing and/or coordinating discharge services: Greater than 30 minutes Status at Discharge Functional status at discharge: independent ambulation Overall status at discharge: patient is back to baseline Mental Status: mental status grossly normal Speech and Movement: speech and movement normal Mood: congruent mood Affect: normal affect Quality:SDOH Health Related Social Needs: Health related social needs transpo insecurity Exam Narrative Exam Narrative: well appearing older female sitting up in the chair in no acute distress, AOx4, heart irregularly irregular in 80s, no murmur, lungs CTAB, abdomen soft, non- tender, non-distended. Extremities without cyanosis, not tender, trace bilateral edema at ankles. Psych Mental Status: mental status grossly normal Speech and Movement: speech and movement normal Mood: congruent mood Affect: normal affect DS: Data Vitals/I&O Vitals and I&O: Vital Signs Temperature 36.9 C 11/20/23 15:36 Temperature Source Temporal Artery Scan 11/20/23 15:36 Pulse 85 11/20/23 15:36 Pulse Rhythm Irregular 11/20/23 12:30 Pulse 97 H 11/18/23 20:50 Respiratory Rate 18 11/20/23 15:36 Respiratory Effort Normal, Non-Labored 11/20/23 12:30 Respiratory Depth Normal 11/20/23 12:30 Respiratory Pattern Normal 11/20/23 12:30 Blood Pressure 100/70 11/20/23 15:44 Blood Pressure Mean 101 11/18/23 20:46 Pulse Oximetry 96 11/20/23 15:36 Oxygen Delivery Method Room Air 11/20/23 15:36 Oxygen Flow Rate 0 11/20/23 15:36 Pain Level 0 11/20/23 11:20 Comment pt lying on left side. MAP 70 11/19/23 03:18 Intake & Output 11/19/23 11/20/23 11/20/23 23:59 11:59 23:59 Intake Total 960 / 1793 360 / 360 Output Total 2800 / 5100 600 / 1100 500 / 1100 Balance -1840 / -3307 -600 / -740 -140 / -740 Intake: Oral 960 / 1793 360 / 360 Output: Urine 2800 / 5100 600 / 1100 500 / 1100 Other: Urine Color Yellow Yellow Pale Yellow Urine Appearance Clear Clear Clear Urine Odor Normal Normal None Comment toilet insert Stool Size Large Stool Characteristics Liquid Voiding Methods Toilet Toilet Toilet Data Completed and Pending Labs on day of discharge: Labs from last 24 hours 11/20/23 06:40 Sodium 140 Potassium 3.6 Chloride 100 Carbon Dioxide 33.2 H Anion Gap 6.8 BUN 19 H Creatinine 1.0 Est GFR (CKD-EPI 2020) 57.66 Glucose 115 H Calcium 8.9 PFSH All Active Problems (Updated 11/19/23 @ 01:02 by Jim Perdomo MD) Macrocytic anemia (Acute) Status post cardiac pacemaker procedure (Acute) S/P TAVR (transcatheter aortic valve replacement) (Acute) Pericardial effusion (Acute) Atrial fibrillation (Chronic) Congestive heart failure (Chronic) Anticoagulation adequate (Acute) Xarelto Difficulty in walking, not elsewhere classified (Acute) Other specified peripheral vascular diseases (Acute) Tinea unguium (Acute) Toe pain, right (Acute) Toe pain, left (Acute) Nail dystrophy (Acute) Other specified polyneuropathies (Acute) Leg edema (Acute) Leg cramps (Acute) Chronic pain of left lower extremity (Acute) Spinal stenosis, lumbar (Acute) GERD (gastroesophageal reflux disease) (Chronic) Venous stasis (Acute) Osteopenia (Acute) Peripheral neuropathy (Acute) Hyperlipidemia (Acute) CKD (chronic kidney disease) stage 3, GFR 30-59 ml/min (Acute) Afib (Chronic) s/p lpulm vein isolation 05/2018, Xarelto Anemia, iron deficiency (Acute) Hypothyroidism (Chronic) HTN (hypertension) (Chronic) Chronic venous insufficiency (Acute) Arthritis (Acute) Aortic stenosis (Chronic) congenital bi-cuspid valve Per pt. states she see's mingo burkett, at [facility] RACHAEL (obstructive sleep apnea) (Chronic) Medical History Trigger finger, right little finger Injection: 12/18/2022 History of blood transfusion Diarrhea Foot pain, right Skin fissure Sciatica of left side Breast cancer in female Hiatal hernia COVID-19 Trigger finger, left index finger Depo-Medrol injection: 08/13/2020 Fatigue COLÓN (dyspnea on exertion) Cervical polyp Back pain Gout of ankle Trigger finger, right ring finger Carpal tunnel syndrome Acute back pain with sciatica Chondrocalcinosis of left knee Injected: 01/03/2020, 09/09/2021 PUD (peptic ulcer disease) Breast cancer left breast Surgical History Left carpal tunnel syndrome S/P L ECTR: 12/31/2022 Hx of inguinal hernia repair H/O lumbosacral spine surgery Lumbar Foraminotomy L4 History of carpal tunnel surgery of right wrist (01/24/20) History of ankle surgery right w/ screws History of laminectomy Trigger finger, left little finger s/p release 05/10/2019 Colonoscopy - MAC (03/17/17) Cholecystectomy Family History Grandmother Colon cancer Mother CAD (coronary artery disease) Father Stroke Sister Pneumonia Brother Drug overdose Maternal Grandfather Colon cancer Social History Smoking/Tobacco Use Status: Never Smoking risk assessment performed?: Yes Alcohol Intake: current Alcohol Intake frequency: a few times a week Alcohol type: beer, wine and hard liquor Drug use: Never Substance use type: does not use Household members: none Housing: house Number of Children: 2 current occupation: Retired Current gender identity: female What type of physical activity do you participate in: independent ambulation Do you feel safe at home: Yes Do you feel safe in your relationship?: Yes Time Spent with Patient Time Spent with Patient: 45-69 minutes Time was spent: preparing to see the patient(eg.review tests), obtaining and/or reviewing separately otained hiistory, ordering medications,tests, procedures, referring, communicating with other health healthcare marketer, indepentently interpreting results, counseling the patient and care coordination
--- NOTE | 2023-11-20 16:26 | PDOC.HHF2F ---
Home Health Referral Home Health Orders Clinical synopsis of why skilled professionals are needed: CHF, atrial fibrillation, monitoring of fluid status, weight, blood pressure, pulse Medical diagnosis necessitation home health referral: HFpEF, atrial fibrillation Registered Nurse: Check all that apply Instruct on new or changed medication(s)/assess compliance: Ordered Assess for exacerbation of medical condition, instruct patient/caregivers on signs and symptoms to report for early detection: Ordered Home Bound Status Requires the aid of supportive device (check all that apply): Cane Assistance of another person (Describe assistance and medical necessity): does not drive, needs assistance Describe why leaving home would require a considerable and taxing effort: Requires frequent rest periods and Safety Concerns: describe Encounter Date and Reason: I certify that a FTF encounter for this patient was performed on November 20, 2023 and that such encounter was related to the primary reason the patient requires home health services. The encounter was conducted in the following manner: By me as the certifying physician, WORKERS COMPENSATION ADMINISTRATOR, PA or By an inpatient physician, WORKERS COMPENSATION ADMINISTRATOR or PA during an inpatient stay who communicated findings to me, Certification And Authentication I certify that I composed the above information based on my clinical judgment relating to this patient's medical condition and, if applicable, clinical findings communicated to me by the NPP or inpatient physician who performed the FTF encounter. Name of Provider that will be monitoring home health services: Ana Her
--- NOTE | 2023-11-20 17:42 | PDOC.CMDIS ---
Date of service: 11/20/23 Time of Service: 17:43 LACE Index Scoring Tool Questions: Length of Stay (in days): 2 Was the patient admitted via the E.D.?: Yes Comorbidities: Congestive Heart Failure and Liver or Renal Disease E.D. Visits: 0 Answers: Total Score: 10 Risk of Readmission: High Risk Care Management Discharge Plan Reason for Hospitalization: PAF w/RVR, CHF Discharge Plan: Alma Delia returned home today with new orders for HH RN. She was transported home via private vehicle by family. She will follow up with her PCP and discharge plan of care. She was happy to be going home. Patient/Family Education Needs: Review discharge instructions and limitations, discussion of self care needs including ask me three. Services Needed at Discharge: Home Health Care Services (HH RN) SDOH Health Related Social Needs: Health related social needs transpo insecurity Health related social needs: transportation insecurity(Z59.82)
== END 2023-11-20 16:47 | disposition home health service (06) | DRG 314 ==
LOC: ER 21:54 → MS 22:08
PROVIDERS: Family Medicine; Admitting Provider Internal Medicine; Emergency Provider Physician Assistant; PCP Family Medicine; Visit Provider Internal Medicine
DX: T82.897A Other specified complication of cardiac prosthetic devices, implants and grafts, initial encounter (principal); I50.33 Acute on chronic diastolic (congestive) heart failure; I31.39 Other pericardial effusion (noninflammatory); I42.8 Other cardiomyopathies; I48.11 Longstanding persistent atrial fibrillation; I45.2 Bifascicular block; Z95.2 Presence of prosthetic heart valve; Z95.0 Presence of cardiac pacemaker; D53.9 Nutritional anemia, unspecified; M48.061 Spinal stenosis, lumbar region without neurogenic claudication; M85.80 Other specified disorders of bone density and structure, unspecified site; K21.9 Gastro-esophageal reflux disease without esophagitis; G89.29 Other chronic pain; D50.9 Iron deficiency anemia, unspecified; G47.33 Obstructive sleep apnea (adult) (pediatric); I87.8 Other specified disorders of veins; I11.0 Hypertensive heart disease with heart failure; E03.9 Hypothyroidism, unspecified; E78.5 Hyperlipidemia, unspecified; G62.9 Polyneuropathy, unspecified; R60.0 Localized edema; R26.2 Difficulty in walking, not elsewhere classified; Z85.3 Personal history of malignant neoplasm of breast; Y83.1 Surgical operation with implant of artificial internal device as the cause of abnormal reaction of the patient, or of later complication, without mention of misadventure at the time of the procedure; Y71.2 Prosthetic and other implants, materials and accessory cardiovascular devices associated with adverse incidents; D69.6 Thrombocytopenia, unspecified
CPT/HCPCS: 00123; 36415; 71275; 80048; 80053; 82805; 83690; 93005; 93306; 96372; 99285; 81003; 81015; 82607; 82728; 82746; 83540; 83550; 83605; 83735; 83880; 84443; 84466; 84484; 85025; 85610; 85730; 93010; 93970; 99222; 99233; 99239; J1940; J3490

== ENCOUNTER 2023-12-02 13:59 | Outpatient (REF) | payer MEDICARE, SELFPAY ==
--- OUTSIDE RECORDS SUMMARY | 2023-12-02 14:01 | XMS_ITS | Clinical Summary ---
Author Organization [facility] [place] [address] Care Team Providers Care Deputy Program Manager Name Role Phone Ana Her MD Primary Care Provider [phone] Allergies No known active allergies Medications Medication [...] the eliquis and has been managed by [facility]. She has remained in Afib over [...] and ECG with Dr. Ana Her in [place] in January She will discuss ECHO results [...] - TT3 and FT4 nl - My SOLUTION MAKER colleague called and spoke with covering MD [...] history exists Medical Devices Implanted Type Area Pen Rider Device Identifier Shelf Expiration Date Model / Serial / Lot Breast Clip-02/26/20 17 Implanted: by Enzo Burkett MD (Quantity not on file) Breast Clip Left: Breast Bard - 0614 05/04/2019 [employer] ULTRACOR BREAST TISSUE MARKER ULTRASOUND ENHANCED BLANCA / / [id number] Description:BLANCA Procedures Procedure Name Priority Date/Time Associated [...] laterality jail current 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 from Last [...] who have questions please contact the health manager wound care that requested your imaging first. ? Jeanine [...] BMD measurements and plots are available in [employer] under the imaging tab. Paper copies will be sent to providers without [employer] access. If you have received this report without the data sheet and do not have access to [employer], please contact Radiology Financial Supervisor at [phone] Thursday thru Thursday 8am-4pm. Thank you for letting us participate in the care of this patient. ??If you are a health care provider and have any questions regarding this report, please contact the number below. ??For patients who have questions please contact the health manager wound care that requested your imaging first. ? Narrative [...] copies will be sent to providers without [employer]- access.If you have received this report without the data sheet and do not haveaccess to E-, please contact Radiology Financial Supervisor at [phone] Thursday thruFriday 8am-4pm. Thank you for letting us participate in the care of this patient. If youare a health care provider and have any questions regarding this report,please contact the number below. For patients who have questions please contactthe health manager wound care that requested your imaging first. Ricky Lowry [...] Status decision made by: Patient Care Teams Deputy Program Manager Relationship Specialty Start Date End Date Ana Her MD [address] [place] [address] PCP - General 07/29/13
--- OUTSIDE RECORDS SUMMARY | 2023-12-02 14:01 | XMS_ITS | Encounter Summary ---
[place] [address] Care Team Providers Care Insole Buffer Name Role Phone Ana Her MD Primary Care Provider [phone] Encounter Details Date Type Department Care Team (Late st Contact Info) Description 02/03/2023 Telephone Hematology [place] [phone] Maryam Barrett Social History Tobacco Use Types [...] on filedocumented in this encounter Care Teams Insole Buffer Relationship Specialty Start Date End Date Ana Her MD [address] [place] [address] PCP - General 07/29/13 documented as of this encounter
--- OUTSIDE RECORDS SUMMARY | 2023-12-02 14:01 | XMS_ITS | Encounter Summary ---
Author Organization [facility] [place] [address] Care Team Providers Care Senior Consultant Name Role Phone Ana Her MD Primary Care Provider [phone] Encounter Details Date Type Department Care Team (Late st Contact Info) Description 03/09/2022 11:00 PM EST Ancillary Procedure [place] [address] Ana Her MD [facility] [address] [place] [address] Social History Tobacco Use Types Packs/Day Years [...] CT Chest (03/09/2022 10:56 PM EST) Narrative [facility] - 03/09/2022 10:56 PM EST This exam is auto-finalizing. It's purpose is for storage only. Ana Her MD [facility] ORD ERABLES [place], [place] documented in this encounter Visit Diagnoses Not on filedocumented in this encounter Care Teams Senior Consultant Relationship Specialty Start Date End Date Ana Her MD [address] [place] [address] [facility] [address] [place] [address] PCP - General 07/29/13 documented as of this encounter
--- OUTSIDE RECORDS SUMMARY | 2023-12-02 14:01 | XMS_ITS | Encounter Summary ---
Author Organization [facility] [place] [address] Care Team Providers Care Instructional Consultant Name Role Phone Ana Her MD Primary Care Provider [phone] Encounter Details Date Type Department Care Team (Latest Contact Info) Description 04/03/2022 12:00 PM EST TH Visit (TeleHealth) [place] [phone] [facility] [place] [address] Status post repair of paraesophageal diaphragmatic hernia [...] status documented in this encounter Care Teams Instructional Consultant Relationship Specialty Start Date End Date Ana Her MD [facility] [address] [place] [address] PCP - General 07/29/13 documented as of this encounter
--- OUTSIDE RECORDS SUMMARY | 2023-12-02 14:01 | XMS_ITS | Encounter Summary ---
[place] [address] Care Team Providers Care Drum Reel Cutter Name Role Phone Ana Her MD Primary Care Provider [phone] Reason for Visit * Auth/Cert Specialty Diagnoses / Procedures Referred By Christiano hackett Referred To Contact Diagnoses S/P repair of paraesophageal hernia Post-Op monitoring Procedures PRO LAPARSCOPY REPAIR PARAESOPHAGEAL HERNIA INCL FUNDOPLASTY W/O MESH LAPAROSCOPIC PARAESOPHAGEAL HERNIA REPAIR W/FUNDOPLASTY, W/O MESH (WRVU 26.6) MODIFIER TOUPET FUNDOPLASTY Shania Will MD [facility] [place] [address] [facility] Referral ID Status Reason Start Date Expiration Date Visits Re quested Visits Authorized [id number] 1 1 Encounter Details Date Type Department Care Team (Latest Contact Info) Description 03/05/2022 11:55 AM EDT - 03/07/2022 10:00 AM EDT Hospital Encounter [place] [id number] Shania Will MD [facility] [place] [address] Discharge Disposition: Home Social History Tobacco Use [...] 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 Anemia D64.9 ??? Aortic valve [...] Per chart review, her creatinine levels in 6316-3694 ranged from 0.87-1.50 indicative of possible undiagnosed [...] PM Shania Will MD General Surgery at [facility] Arrive at: [place] [facility] [phone] Instructions Given to Patient at Discharge: Patient [...] hours please call the Surgery Clinic at [phone] before 5 PM on weekdays. For questions after hours and on weekends please call the hospital automatic beading lathe operator at [phone] and ask for the General Surgery resident carpet installation specialist. They may not be familiar with your [...] post Sly diet, as instructed by the hearing aid assistant in the hospital for a period of [...] renal function. Please call the clinic at [phone] to confirm or reschedule. Future Appointments Date Time Provider Department Center 04/03/2022 12:00 PM Shania Will MD [facility] SURG [facility] General Instructions None Future Appointments and Orders Future Appointments and Orders Future Appointments Provider Department Dept Phone 04/03/2022 12:00 PM Shania Will MD General Surgery at [facility] Arrive at: [place] [facility] Signed: Shena Harden MD 03/07/22 7:18 AM [facility] 2026 Primary [place] Physician: MD Geovany David DR [facility] [id number] documented in this encounter Discharge Instructions * [...] hours please call the Surgery Clinic at [phone] before 5 PM on weekdays. For questions after hours and on weekends please call the hospital automatic beading lathe operator at [phone] and ask for the General Surgery resident carpet installation specialist. They may not be familiar with your [...] post Sly diet, as instructed by the hearing aid assistant in the hospital for a period of [...] renal function. Please call the clinic at [phone] to confirm or reschedule. Future Appointments Date Time Provider Department Center 04/03/2022 12:00 PM Shania Will MD [facility] SURG [facility] documented in this encounter Medications at Time [...] Ocampo RN - 03/07/2022 10:25 AM EDT [facility] Short Stay Unit Discharge Note All relevant [...] Sly Diet Education to pt Digna Olson. Hog Trader metwith pt at bedside to deliver full [...] she is noticing some overall improvement post op.Hog Trader took note of this and encouraged the [...] Department contact information provided. Pt appreciate of sql report writer's time. Nutrition to follow as needed. [...] Perez MD 03/05/2022 Minimally Invasive Surgery Pager #[phone] * Lorrie Slater RN - 03/05/2022 6:46 [...] ?? 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 Anemia D64.9 ??? Aortic valve [...] 6.43) performed by Malika Chen MD at [facility] MAIN OR ??? PRO INTRAOP SENTINEL LYMPH ID W/DYE INJECTION Left 03/30/2017 ?? INTRAOPERATIVE ID (MAPPING) SENTINEL LYMPH NODE,INCLUDES INJECTION (WRVU 2.5) performed by Malika Chen MD at [facility] MAIN OR ??? PRO MASTECTOMY PARTIAL Left 03/30/2017 ?? MASTECTOMY PARTIAL (WRVU 10.13) performed by Malika Chen MD at [facility] MAIN OR ?? Cholecystectomy ?? Medications: ?? [...] Operative Note Patient Name: Digna Olson : [id number] MR#: [id number] Case Date: 03/05/2022 Surgeon: Surgeon(s) and Role: [...] Flores MD - 03/05/2022 2:32 PM EDT [facility] Operative Note Patient Name: Digna Olson : [id number] MR#: [id number] Case Date: 03/05/2022 Surgeon: Surgeon(s) and Role: [...] Repair Paraesophageal Hernia Incl Fundoplasty W/O Mesh ([id number]) 03/05/2022 1:58 PM EDT Paraesophageal Hernia POCT GLUCOSE Routine 03/05/2022 12:18 PM EDT LAPAROSCOPIC PARAESOPHAGEAL HERNIA REPAIR W FUNDOPLASTY, W/O MESH Routine 03/05/2022 12:02 PM EDT documented in this encounter Results * (ABNORMAL) Differential, Automated (03/07/2022 5:08 AM EDT) Neutrophils % 80.0 % [facility] Neutr Abs (ANC) 5.30 1.70 - 6.10 x10(3)/mc L [facility] Lymphocytes % 12.1 % [facility] Lymphocytes Abs 0.8(L) 0.9 - 3.2 x10(3)/mc L [facility] Monocytes % 7.6 % [facility] Monocyte Abs 0.5 0.3 - 0.9 x10(3)/mc L [facility] Eosinophils % 0.0 % [facility] Eosinophils Abs 0.0 0.0 - 0.4 x10(3)/[facility] Basophils % 0.0 % [facility] Basophils Abs 0.0 0.0 - 0.1 x10(3)/[facility] Immature Gran % 0.30 % [facility] Comment: Immature granulocytes(IG's)percentage and absolute count will include metamyelocytes, myelocytes, and promyelocytes. Blood smears from CBCs yielding IG's will be scanned manually for concordance. If this scan disagrees with the automated IG or if promyelocytes are noted, a manual differential will be performed. Elenita Gran Abs 0.02 0.00 - 0.04 x10(3)/[facility] Blood 03/07/2022 5:08 AM EDT 03/07/2022 5:19 AM EDT Narrative Resulting Agency Comment Spec In Lab Nino Levy MD HEMATOLOGY ORDERABLE S Performing Organization Address City/State/[facility] Co de Phone Number [facility] [place] [address] * (ABNORMAL) Hemogram (03/07/2022 5:08 AM EDT) WBC 6.6 4.0 - 9.5 x10(3)/[facility] RBC 3.16(L) 4.00 - 5.21 x10(6)/[facility] Hemoglobin 10.7(L) 11.7 - 15.5 g/dL [facility] Hematocrit 31.7(L) 35.7 - 45.8 % [facility] MCV 100.3(H) 82.6 - 94.4 fL [facility] MCH 33.9(H) 27.1 - 32.0 pg [facility] MCHC 33.8 31.7 - 35.0 g/dL [facility] Platelets 110(L) 145 - 357 x10(3)/[facility] RDWSD 47.5(H) 37.0 - 46.0 fL [facility] RDWCV 12.9 11.5 - 14.1 % [facility] MPV 11.7 7.6 - 12.9 fL [facility] nRBC % Auto 0.0 % [facility] nRBC Abs Auto 0.000 0.000 - 0.000 x10(3)/mcL [facility] Blood 03/07/2022 5:08 AM EDT 03/07/2022 5:19 AM EDT Narrative Resulting Agency Comment Spec In Lab Nino Levy MD HEMATOLOGY ORDERABLE S [facility] [place] [address] * Phosphorus (03/07/2022 5:08 AM EDT) Phosphorus 2.7 2.5 - 4.5 mg/dL [facility] Blood 03/07/2022 5:08 AM EDT 03/07/2022 5:19 AM EDT Narrative Resulting Agency Comment Spec In Lab Shania Will MD CHEMISTRY ORDERABLE S [facility] [place] [address] * Magnesium (03/07/2022 5:08 AM EDT) Magnesium 0.89 0.69 - 1.07 mmol/L [facility] Blood 03/07/2022 5:08 AM EDT 03/07/2022 5:19 AM EDT Narrative Resulting Agency Comment Spec In Lab Shania Will MD CHEMISTRY ORDERABLE S [facility] [place] [address] * (ABNORMAL) Basic Metabolic Panel (non-fasting) (03/07/2022 5:08 AM EDT) Glucose Lvl 111 65 - 199 mg/dL [facility] Comment:Diabetes: >=200 mg/d L plus symptoms BUN 22(H) 8 - 18 mg/dL [facility] Creatinine 0.93 0.70 - 1.20 mg/dL [facility] Sodium 131(L) 135 - 145 mmol/L [facility] Potassium 4.5 3.5 - 5.0 mmol/L [facility] Comment: Please note: ??Patients with WBC >100,000 may have falsely elevated Potassium levels. ??For accurate Potassium quantification in these patients send serum separator tube (gold top) for subsequent determinations. ??Contact the Clinical Chemistry Laboratory if there are any questions. Chloride 100 98 - 107 mmol/L [facility] CO2 22 22 - 31 mmol/L [facility] Anion Gap 9 5 - 15 mmol/L [facility] Calcium 9.2 8.5 - 10.5 mg/dL [facility] Estimated GFR 64 >=60 mL/min/1. 73 m?? [facility] Comment: This patient's estimated GFR [...] Lab Shania Will MD CHEMISTRY ORDERABLE S [facility] [place] [address] * (ABNORMAL) Differential, Automated (03/06/2022 10:15 AM EDT) Pathologist [facility] Neutrophils % 90.7 % [facility] Neutr Abs (ANC) 5.79 1.70 - 6.10 x10(3)/[facility] Lymphocytes % 5.0 % [facility] Lymphocytes Abs 0.3(L) 0.9 - 3.2 x10(3)/[facility] Monocytes % 3.8 % [facility] Monocyte Abs 0.2(L) 0.3 - 0.9 x10(3)/[facility] Eosinophils % 0.0 % [facility] Eosinophils Abs 0.0 0.0 - 0.4 x10(3)/[facility] Basophils % 0.0 % [facility] Basophils Abs 0.0 0.0 - 0.1 x10(3)/[facility] Immature Gran % 0.50 % [facility] Comment: Immature granulocytes(IG's)percentage and absolute count will include metamyelocytes, myelocytes, and promyelocytes. Blood smears from CBCs yielding IG's will be scanned manually for concordance. If this scan disagrees with the automated IG or if promyelocytes are noted, a manual differential will be performed. Elenita Gran Abs 0.03 0.00 - 0.04 x10(3)/[facility] Blood 03/06/2022 10:1 5 AM EDT 03/06/2022 10:21 AM EDT Narrative Resulting Agency Comment Spec In Lab Maryam MUELLER HEMATOLOGY ORDERABL ES [facility] [place] [address] * (ABNORMAL) Hemogram (03/06/2022 10:15 AM EDT) WBC 6.4 4.0 - 9.5 x10(3)/[facility] RBC 3.07(L) 4.00 - 5.21 x10(6)/[facility] Hemoglobin 10.5(L) 11.7 - 15.5 g/dL [facility] Hematocrit 31.1(L) 35.7 - 45.8 % [facility] MCV 101.3(H) 82.6 - 94.4 fL [facility] MCH 34.2(H) 27.1 - 32.0 pg [facility] MCHC 33.8 31.7 - 35.0 g/dL [facility] Platelets 111(L) 145 - 357 x10(3)/[facility] RDWSD 47.2(H) 37.0 - 46.0 [facility] RDWCV 12.9 11.5 - 14.1 % [facility] MPV 11.5 7.6 - 12.9 [facility] nRBC % Auto 0.0 % [facility] nRBC Abs Auto 0.000 0.000 - 0.000 x10(3)/[facility] Blood 03/06/2022 10:1 5 AM EDT 03/06/2022 10:21 AM EDT Narrative Resulting Agency Comment Spec In Lab Maryam MUELLER HEMATOLOGY ORDERABL ES [facility] [place] [address] * Phosphorus (03/06/2022 10:15 AM EDT) Phosphorus 3.3 2.5 - 4.5 mg/dL [facility] Blood 03/06/2022 10:1 5 AM EDT 03/06/2022 10:21 AM EDT Narrative Resulting Agency Comment Spec In Lab Shania Will MD CHEMISTRY ORDERABLE S [facility] [place] [address] * Magnesium (03/06/2022 10:15 AM EDT) Pathologist [facility] Magnesium 0.69 0.69 - 1.07 mmol/L [facility] Blood 03/06/2022 10:1 5 AM EDT 03/06/2022 10:21 AM EDT Narrative Resulting Agency Comment Spec In Lab Shania Will MD CHEMISTRY ORDERABLE S Performing Organization Address [facility]/ZIP Co de Phone Number [facility] [place] [address] * (ABNORMAL) Basic Metabolic Panel (non-fasting) (03/06/2022 10:15 AM EDT) [facility] Glucose Lvl 155 65 - 199 mg/dL [facility] Comment:Diabetes: >=200 mg/d L plus symptoms BUN 29(H) 8 - 18 mg/dL [facility] Creatinine 1.25(H) 0.70 - 1.20 mg/dL [facility] Sodium 134(L) 135 - 145 mmol/L [facility] Potassium 4.8 3.5 - 5.0 mmol/L [facility] Comment: Please note: ??Patients with WBC >100,000 may have falsely elevated Potassium levels. ??For accurate Potassium quantification in these patients send serum separator tube (gold top) for subsequent determinations. ??Contact the Clinical Chemistry Laboratory if there are any questions. Chloride 101 98 - 107 mmol/L [facility] CO2 23 22 - 31 mmol/L [facility] Anion Gap 10 5 - 15 mmol/L [facility] Calcium 8.9 8.5 - 10.5 mg/dL [facility] Estimated GFR 45(L) >=60 mL/min/1. 73 m?? [facility] Comment: This patient's estimated GFR [...] MD CHEMISTRY ORDERABLE S Performing Organization Address City/State/[facility] Co de Phone Number [facility] [place] [address] * (ABNORMAL) Differential, Automated (03/06/2022 4:29 AM EDT) Neutrophils % 90.5 % [facility] Neutr Abs (ANC) 4.47 1.70 - 6.10 x10(3)/mc L [facility] Lymphocytes % 6.9 % [facility] Lymphocytes Abs 0.3(L) 0.9 - 3.2 x10(3)/mc L [facility] Monocytes % 2.2 % [facility] Monocyte Abs 0.1(L) 0.3 - 0.9 x10(3)/mc L [facility] Eosinophils % 0.0 % [facility] Eosinophils Abs 0.0 0.0 - 0.4 x10(3)/mc L [facility] Basophils % 0.2 % [facility] Basophils Abs 0.0 0.0 - 0.1 x10(3)/mc L [facility] Immature Gran % 0.20 % [facility] Comment: Immature granulocytes(IG's)percentage and absolute count will include metamyelocytes, myelocytes, and promyelocytes. Blood smears from CBCs yielding IG's will be scanned manually for concordance. If this scan disagrees with the automated IG or if promyelocytes are noted, a manual differential will be performed. Elenita Gran Abs 0.01 0.00 - 0.04 x10(3)/mc L [facility] Blood 03/06/2022 4:29 AM EDT 03/06/2022 4:49 AM EDT Narrative Resulting Agency Comment Spec In Lab Prakash Mendez MD HEMATOLOGY ORDERABLE S [facility] [place] [address] * (ABNORMAL) Hemogram (03/06/2022 4:29 AM EDT) WBC 4.9 4.0 - 9.5 x10(3)/[facility] RBC 3.08(L) 4.00 - 5.21 x10(6)/[facility] Hemoglobin 10.5(L) 11.7 - 15.5 g/dL [facility] Hematocrit 31.0(L) 35.7 - 45.8 % [facility] MCV 100.6(H) 82.6 - 94.4 fL [facility] MCH 34.1(H) 27.1 - 32.0 pg [facility] MCHC 33.9 31.7 - 35.0 g/dL [facility] Platelets 104(L) 145 - 357 x10(3)/[facility] RDWSD 47.5(H) 37.0 - 46.0 fL [facility] RDWCV 12.9 11.5 - 14.1 % [facility] MPV 11.8 7.6 - 12.9 fL [facility] nRBC % Auto 0.0 % [facility] nRBC Abs Auto 0.000 0.000 - 0.000 x10(3)/mcL [facility] Blood 03/06/2022 4:29 AM EDT 03/06/2022 4:49 AM EDT Narrative Resulting Agency Comment Spec In Lab Prakash Mendez MD HEMATOLOGY ORDERABLE S [facility] [place] [address] * (ABNORMAL) Basic Metabolic Panel (non-fasting) (03/06/2022 4:29 AM EDT) Glucose Lvl 140 65 - 199 mg/dL [facility] Comment:Diabetes: >=200 mg/d L plus symptoms BUN 31(H) 8 - 18 mg/dL [facility] Creatinine 1.32(H) 0.70 - 1.20 mg/dL [facility] Sodium 136 135 - 145 mmol/L [facility] Potassium 5.3(H) 3.5 - 5.0 mmol/L [facility] Comment: Please note: ??Patients with WBC >100,000 may have falsely elevated Potassium levels. ??For accurate Potassium quantification in these patients send serum separator tube (gold top) for subsequent determinations. ??Contact the Clinical Chemistry Laboratory if there are any questions. Chloride 103 98 - 107 mmol/L [facility] CO2 23 22 - 31 mmol/L [facility] Anion Gap 10 5 - 15 mmol/L [facility] Calcium 9.0 8.5 - 10.5 mg/dL [facility] Estimated GFR 42(L) >=60 mL/min/1. 73 m?? [facility] Comment: This patient's estimated GFR [...] Lab Shania Will MD CHEMISTRY ORDERABLE S [facility] [place] [address] * POCT Glucose (03/05/2022 12:18 PM EDT) POC Glucose 94 65 - 199 mg/dL [facility] Comment: Supplemental ranges: <140 mg/dL before meals <180 mg/dL all other times of the day Blood 03/05/2022 12:1 8 PM EDT 03/05/2022 12:18 PM EDT Shania Will MD POINT OF CARE TEST ORDERABLES Performing Organization Address City/[facility]/ZIP Co de Phone Number [facility] [place] [address] documented in this encounter Visit Diagnoses Diagnosis [...] Unit) documented in this encounter Care Teams Drum Reel Cutter Relationship Specialty Start Date End Date Ana Her MD Geovany [address] [facility] [address] [place] [address] PCP - General 07/29/13 documented as of this encounter
--- OUTSIDE RECORDS SUMMARY | 2023-12-02 14:01 | XMS_ITS | Encounter Summary ---
Author Organization [facility] [place] [address] Care Team Providers Care Financial Planning Assistant Name Role Phone Ana Her MD Primary Care Provider [phone] Encounter Details Date Type Department Care Team (Late st Contact Info) Description 03/09/2022 Telephone [place] [address] Prakash Mendez MD [facility] [place] [address] Social History Tobacco Use Types Packs/Day Years [...] hernia repair with Toupet fundoplication with Dr. iWll on 03/05 Vanessa called in regards to [...] the mobile number listed in her chart ([phone]). Her other daughter answered the phone and reported that she had just dropped her off in the Emergency Department at [facility] and parked the car. She was walking back to the building to be with her. I reassured her that going to the Emergency Department seemed like a reasonable plan. I assured her that we are always happy to see her here at [facility] anytime and that they could call back anytime with further questions or concerns. This note will be routed to the provider mentioned above. Prakash Mendez MD documented in this encounter Plan of Treatment Not on file documented as of this encounter Visit Diagnoses Not on filedocumented in this encounter Care Teams Financial Planning Assistant Relationship Specialty Start Date End Date Ana Her MD [address]any [address] [place] [address] PCP - General 07/29/13 documented as of this encounter
--- OUTSIDE RECORDS SUMMARY | 2023-12-02 14:01 | XMS_ITS | Encounter Summary ---
[place] [address] Care Team Providers Care Cigar Head Puncher Name Role Phone Ana Her MD Primary Care Provider [phone] Encounter Details Date Type Department Care Team (Late st Contact Info) Description 10/23/2022 Telephone Mammography/[place] [phone] [place] [place] Social History Tobacco Use Types [...] on filedocumented in this encounter Care Teams Cigar Head Puncher Relationship Specialty Start Date End Date Ana Her MD [address] [place] [address] PCP - General 07/29/13 documented as of this encounter
--- OUTSIDE RECORDS SUMMARY | 2023-12-02 14:01 | XMS_ITS | Encounter Summary ---
Author Organization [facility] [place] [address] Care Team Providers Care Health And Wellness Manager Name Role Phone Ana Her MD Primary Care Provider [phone] Encounter Details Date Type Department Care Team (Late st Contact Info) Description 03/10/2022 1:35 AM EST Ancillary Procedure [place] [address] Ana Her MD [facility] [address] [place] [address] Social History Tobacco Use Types Packs/Day Years [...] CT Chest (03/10/2022 1:31 AM EST) Narrative [facility] - 03/10/2022 1:31 AM EST This exam is auto-finalizing. It's purpose is for storage only. Ana Her MD [facility] FILM LIBRARY ORD ERABLES [place], [place] documented in this encounter Visit Diagnoses Not on filedocumented in this encounter Care Teams Health And Wellness Manager Relationship Specialty Start Date End Date Ana Her MD [address] [place] [address] [facility] [address] [place] [address] PCP - General 07/29/13 documented as of this encounter
--- OUTSIDE RECORDS SUMMARY | 2023-12-02 14:02 | XMS_ITS | Encounter Summary ---
[place] [address] Care Team Providers Care Telegraphic Service Dispatcher Name Role Phone Ana Her MD Primary Care Provider [phone] 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 * Consultation (Routine) - Closed Specialty Diagnoses / Procedures Referred By Christiano hacktet Referred To Contact General Surgery Diagnoses Hiatal hernia Ana Her MD [address] [place] [address] [facility] Gen Surgery [address] [place] [phone] Referral ID Status Reason Start Date Expiration Date V isits Requested Visits Authorized [id number] Closed Consult, Test & Treat 09/23/2021 09/23/2022 6 6 Encounter Details Date Type Department Care Team (Late st Contact Info) Description 09/23/2021 Transcribe Orders eDH Incoming Referrals [phone] Ana Her MD [address] [place] [address] Hiatal hernia Social History Tobacco [...] gangrene documented in this encounter Care Teams Telegraphic Service Dispatcher Relationship Specialty Start Date End Date Ana Her MD [address] [place] [address] PCP - General 07/29/13 documented as of this encounter
--- OUTSIDE RECORDS SUMMARY | 2023-12-02 14:02 | XMS_ITS | Encounter Summary ---
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 Cardiology at [facility] [place]. S/P successful cardioversion May 2018. DEXA scan [...] positive documented in this encounter Care Teams Alum Plant Supervisor Relationship Specialty Start Date End Date Ana Her MD [address] [place] [address] PCP - General 07/29/13 documented as of this encounter
--- OUTSIDE RECORDS SUMMARY | 2023-12-02 14:02 | XMS_ITS | Encounter Summary ---
Author Organization [facility] [place] [address] Care Team Providers Care Pot Maker Name Role Phone Ana Her MD Primary Care Provider [phone] Encounter Details Date Type Department Care Team (Late st Contact Info) Description 09/03/2021 Ancillary Procedure [place] [address] Laura Will MD [facility] [place] [address] Social History Tobacco Use Types Packs/Day Years [...] CT Chest (09/03/2021 12:00 AM EDT) Narrative [facility] - 11/28/2021 1:22 PM EDT This exam is auto-finalizing. It's purpose is for storage only. Laura Will MD IMG FILM LIBRARY OR DERABLES [place], [place] documented in this encounter Visit Diagnoses Not on filedocumented in this encounter Care Teams Pot Maker Relationship Specialty Start Date End Date Ana Her MD [facility] [address] [place] [address] PCP - General 07/29/13 documented as of this encounter
--- OUTSIDE RECORDS SUMMARY | 2023-12-02 14:02 | XMS_ITS | Encounter Summary ---
[place] [address] Care Team Providers Care Cv/Cvn Cv Tsc System Operator Name Role Phone Ana Her MD Primary Care Provider [phone] Encounter Details Date Type Department Care Team (Late st Contact Info) Description 12/24/2021 Telephone [place] [phone] Chelsie Lauren Social History Tobacco Use Types [...] on filedocumented in this encounter Care Teams Cv/Cvn Cv Tsc System Operator Relationship Specialty Start Date End Date Ana Her MD [address] [place] [address] PCP - General 07/29/13 documented as of this encounter
--- OUTSIDE RECORDS SUMMARY | 2023-12-02 14:02 | XMS_ITS | Encounter Summary ---
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 [place] [facility] [place] S/P successful [...] positive documented in this encounter Care Teams Cytogenetics Technologist Relationship Specialty Start Date End Date Ana Her MD [facility] [address] [facility] [address] [place] [address] PCP - General 07/29/13 documented as of this encounter
--- OUTSIDE RECORDS SUMMARY | 2023-12-02 14:02 | XMS_ITS | Encounter Summary ---
[place] [address] Care Team Providers Care Ict Business Analyst Name Role Phone Ana Her MD Primary Care Provider [phone] Encounter Details Date Type Department Care Team (Late st Contact Info) Description 12/17/2021 Telephone [place] [phone] Roma Estrada RN Social History Tobacco Use [...] on filedocumented in this encounter Care Teams Ict Business Analyst Relationship Specialty Start Date End Date Ana Her MD [address] [place] [address] PCP - General 07/29/13 documented as of this encounter
--- OUTSIDE RECORDS SUMMARY | 2023-12-02 14:02 | XMS_ITS | Encounter Summary ---
[place] [address] Care Team Providers Care Double Head Machine Operator Name Role Phone Ana Her MD Primary Care Provider [phone] Encounter Details Date Type Department Care Team (Late st Contact Info) Description 02/04/2022 12:00 PM EDT [place] [address] Social History Tobacco Use Types Packs/Day Years [...] on filedocumented in this encounter Care Teams Double Head Machine Operator Relationship Specialty Start Date End Date Ana Her MD [address] [place] [address] PCP - General 07/29/13 documented as of this encounter
--- OUTSIDE RECORDS SUMMARY | 2023-12-02 14:02 | XMS_ITS | Encounter Summary ---
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 Cardiology at [facility] [place]. S/P successful cardioversion May 2018. DEXA scan [...] on RA Breasts: deferred (examined by surgery CUSTOMER SERVICE LEADER today) Neuro: grossly nonfocal. Results: Last DXA [...] Medical Oncology - Breast & GI Cancers [facility] Pager - [phone] No future appointments. documented in this encounter Plan of Treatment Not on file documented as of this encounter Visit Diagnoses Diagnosis 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, estrogen receptor positive senior living current 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 Use 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s documented in this encounter Care Teams Materials Assistant Relationship Specialty Start Date End Date Ana Her MD [address] [place] [address] PCP - General 07/29/13 documented as of this encounter
--- OUTSIDE RECORDS SUMMARY | 2023-12-02 14:02 | XMS_ITS | Encounter Summary ---
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 Procedures DXA Central Spine, Hip, and/or Whole Body (Generic) Ricky Lowry MD [facility] HEMATOLOGY/[place] [address] [facility] Rad Xray [address] [place] [address] [place] [address] Referral ID Status Reason Start Date Expiration Date V isits Requested Visits Authorized [id number] Closed Specialty Service Requested 05/22/2020 11/19/2021 1 1 Encounter Details Date Type Department Care Team (Late st Contact Info) Description 05/22/2020 1:15 PM EST Office Visit Hematology [place] [address] Ricky Lowry MD [facility] HEMATOLOGY/[place] [address] 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, estrogen receptor positive; Osteopenia of neck of femur, unspecified laterality; residential current 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 Social History [...] cancer cells with immunostaining) Stain intensity: Strong [place] immunoreactivity: Positive (>90% cancer cells with immunostaining) [...] ??Excision with image-guided localization ?Lymph Node Sampling: ??[place] lymph node(s) ?Specimen Laterality: ??Left Tumor ?Histologic [...] ??DCIS not present in specimen Lymph Nodes ?[place] Lymph Nodes: [place] lymph node biopsy performed ?Number of [place] Nodes Examined: ??3 ?Number of Lymph Node(s) [...] Spinal stenosis > A Fib. [place] [facility] [place] cardioversion May 2018. DEXA scan [...] BMD measurements and plots are available in [facility] under the imaging tab. Paper copies will be sent to providers without [facility] access. If you have received this report without the data sheet and do not have access to [facility], please contact Radiology Deep Well Contractor at [phone] Thursday thru Thursday 8am-4pm. Thank you for letting us participate in the care of this patient. ??If you are a health care provider and have any questions regarding this report, please contact the number below. ??For patients who have questions please contact the health director of medicare that requested your imaging first. ? Electronically signed by: Nat Epperson MD, [facility] ([phone]), at 11/19/2020 1:09 PM Narrative 11/19/2020 1:09 [...] copies will be sent to providers without [employer] access.If you have received this report without the data sheet and do not haveaccess to E-, please contact Radiology Deep Well Contractor at [phone] Thursday thruFriday 8am-4pm. Thank you for letting us participate in the care of this patient. If youare a health care provider and have any questions regarding this report,please contact the number below. For patients who have questions please contactthe health director of medicare that requested your imaging first. 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
--- OUTSIDE RECORDS SUMMARY | 2023-12-02 14:02 | XMS_ITS | Encounter Summary ---
Author Organization [facility] [place] [address] Care Team Providers Care Drill Runner Helper Name Role Phone Ana Her MD Primary Care Provider [phone] Encounter Details Date Type Department Care Team (Late st Contact Info) Description 05/31/2019 1:00 PM EST Office [place] [address] Jeanine Lobato PROCESS DEVELOPMENT TECHNICIAN [facility] [place] [address] Encounter for follow-up surveillance of breast cancer; [...] was obtained which revealed IDC which is ER/AZ+, Her2-. She hasno known breast masses, no adenopathy, no nipple discharge. 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 He lives in [place]. She enjoys reading and cooking. She does [...] situation. Results: Imaging performed (bilateral mammogram) at [facility] today shows no evidence of malignancy, BIRADS [...] symptoms. Jeanine Lobato APRN Surgical Oncology P [phone] F [phone] [facility] documented in this encounter Plan of [...] mammogram documented in this encounter Care Teams Drill Runner Helper Relationship Specialty Start Date End Date Ana Her MD [facility] [address] [facility] 1 [place] [address] PCP - General 07/29/13 documented as of this encounter
--- OUTSIDE RECORDS SUMMARY | 2023-12-02 14:02 | XMS_ITS | Encounter Summary ---
Author Organization [facility] [place] [place] [address] Care Team Providers Care Ream Cutter Name Role Phone Ana Her MD Primary Care Provider [phone] Encounter Details Date Type Department Care Team (Late st Contact Info) Description 11/09/2018 2:45 PM EDT Office Visit Hematology [place] [address] Ricky Lowry MD [facility] HEMATOLOGY/[place] [address] Malignant neoplasm of lower-outer quadrant of left [...] cancer cells with immunostaining) Stain intensity: Strong [place] immunoreactivity: Positive (>90% cancer cells with immunostaining) [...] ??Excision with image-guided localization ?Lymph Node Sampling: ??[place] lymph node(s) ?Specimen Laterality: ??Left Tumor ?Histologic [...] ??DCIS not present in specimen Lymph Nodes ?[place] Lymph Nodes: [place] lymph node biopsy performed ?Number of [place] Nodes Examined: ??3 ?Number of Lymph Node(s) [...] Spinal stenosis > A Fib. Card[place] [facility] [place] S/P successful cardioversion May 2018. DEXA scan [...] laterality documented in this encounter Care Teams Ream Cutter Relationship Specialty Start Date End Date Ana Her MD [address] [facility] 1 [place] [address] PCP - General 07/29/13 documented as of this encounter
--- OUTSIDE RECORDS SUMMARY | 2023-12-02 14:02 | XMS_ITS | Encounter Summary ---
[place] [address] Care Team Providers Care Crew Director Name Role Phone Ana Her MD Primary Care Provider [phone] Reason for Visit * Reason Comments Follow-up Encounter Details Date Type Department Care Team (Late st Contact Info) Description 11/15/2020 4:00 PM EDT Office Visit Hematology [place] [phone] Laura Joaquin PA Malignant neoplasm of lower-outer [...] ??Excision with image-guided localization ?Lymph Node Sampling: ??[place] lymph node(s) ?Specimen Laterality: ??Left Tumor ?Histologic [...] ??DCIS not present in specimen Lymph Nodes ?[place] Lymph Nodes: [place] lymph node biopsy performed ?Number of [place] Nodes Examined: ??3 ?Number of Lymph Node(s) [...] Spinal stenosis > A Fib. Cardiology at [facility] [place]. S/P successful cardioversion May 2018. DEXA scan [...] Medical Oncology - Breast & GI Cancers [facility] Pager - [phone] documented in this encounter Plan of Treatment Not on file documented as of this encounter Visit Diagnoses Diagnosis 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, estrogen receptor positive documented in this encounter Care Teams Crew Director Relationship Specialty Start Date End Date Ana Her MD [address] [place] [address] PCP - General 07/29/13 documented as of this encounter
--- OUTSIDE RECORDS SUMMARY | 2023-12-02 14:02 | XMS_ITS | Encounter Summary ---
Author Organization [facility] [place] [address] Care Team Providers Care Ticket Writer Name Role Phone Ana Her MD Primary Care Provider [phone] Encounter Details Date Type Department Care Team (Latest Contact Info) Description 05/31/2019 10:16 AM EST - 05/31/2019 11:59 PM EST Hospital Encounter Mammography/[place] [address] Jeanine Lobato APRN [facility] [place] [address] History of breast cancer Discharge Disposition: Home [...] BIRADS CATEGORY 2: Benign findings. * ??[employer] and [employer] of [...] breast documented in this encounter Care Teams Ticket Writer Relationship Specialty Start Date End Date Ana Her MD [address] [place] [address] PCP - General 07/29/13 documented as of this encounter
--- OUTSIDE RECORDS SUMMARY | 2023-12-02 14:02 | XMS_ITS | Encounter Summary ---
[place] [address] Care Team Providers Care Cooking Casing And Drying Supervisor Name Role Phone Ana Her MD Primary Care Provider [phone] Reason for Visit * Auth/Cert Specialty Diagnoses / Procedures Referred By Christiano hackett Referred To Contact Diagnoses S/P repair of paraesophageal hernia Post-Op monitoring Procedures PRO LAPARSCOPY REPAIR PARAESOPHAGEAL HERNIA INCL FUNDOPLASTY W/O MESH LAPAROSCOPIC PARAESOPHAGEAL HERNIA REPAIR W/FUNDOPLASTY, W/O MESH (WRVU 26.6) MODIFIER TOUPET FUNDOPLASTY Shania Will MD [facility] [place] [address] [facility] Referral ID Status Reason Start Date Expiration Date Visits Re quested Visits Authorized [id number] 1 1 Encounter Details Date Type Department Care Team (Late st Contact Info) Description 03/05/2022 12:54 PM EDT - 03/05/2022 4:55 PM EDT Surgery [place] [phone] Shania Will MD [facility] [place] [address] LAPAROSCOPIC PARAESOPHAGEAL HERNIA REPAIR W/FUNDOPLASTY, W/O MESH [...] of left breast of female, estrogen receptor dfcrompqJ70.512, Z17.0 ??? Anemia D64.9 ??? Aortic valve [...] Per chart review, her creatinine levels in [id number] ranged from 0.87-1.50 indicative of possible undiagnosed [...] Shania Will MD General Surgery at [facility] Arrive at: Director Service Area [phone] Instructions Given to Patient at Discharge: Patient [...] hours please call the Surgery Clinic at [phone] before 5 PM on weekdays. For questions after hours and on weekends please call the hospital process control operator at [phone] and ask for the General Surgery resident coroner forensic technician. They may not be familiar with your [...] post Sly diet, as instructed by the wedding coordinator in the hospital for a period [...] renal function. Please call the clinic at [phone] to confirm or reschedule. Future Appointments Date Time Provider Department Center 04/03/2022 12:00 PM Shania Will MD [facility] SURG [facility] General Instructions None Future Appointments and Orders Future Appointments and Orders Future Appointments Provider Department Dept Phone 04/03/2022 12:00 PM Shania Will MD General Surgery at [facility] Arrive at: Director Service Area 4L [phone] Signed: Shena Harden MD 03/07/22 7:18 AM [phone] Saima Physician: MD Geovany David DR [facility] [id number] documented in this encounter Discharge Instructions * [...] hours please call the Surgery Clinic at [phone] before 5 PM on weekdays. For questions after hours and on weekends please call the hospital process control operator at [phone] and ask for the General Surgery resident coroner forensic technician. They may not be familiar with your [...] post Sly diet, as instructed by the wedding coordinator in the hospital for a period [...] renal function. Please call the clinic at [phone] to confirm or reschedule. Future Appointments Date Time Provider Department Center 04/03/2022 12:00 PM Shania Will MD [facility] SURG [facility] documented in this encounter [...] Ocampo RN - 03/07/2022 10:25 AM EDT [facility] Short Stay Unit Discharge Note All [...] Sly Diet Education to pt Digna Olson. Convention Services Manager metwith pt at bedside to deliver full [...] she is noticing some overall improvement post op.Convention Services Manager took note of this and encouraged the [...] Department contact information provided. Pt appreciate of job specification writer's time. Nutrition to follow as needed. [...] Perez MD 03/05/2022 Minimally Invasive Surgery Pager #[phone] * Lorrie Slater RN - 03/05/2022 6:46 [...] ?? She is followed by cardiology at [facility], and is on xarelto. ?? Impression: ??Symptomatic [...] of left breast of female, estrogen receptor [id number], Z17.0 ??? Anemia D64.9 ??? Aortic valve [...] [facility] ?? Cholecystectomy ?? Medications: [...] Operative Note Patient Name: Digna Olson : [id number] MR#: [id number] Case Date: 03/05/2022 Surgeon: Surgeon(s) and Role: [...] MD - 03/05/2022 2:32 PM EDT [facility] Operative Note Patient Name: Digna Olson : [id number] MR#: [id number] Case Date: 03/05/2022 Surgeon: Surgeon(s) and Role: [...] Repair Paraesophageal Hernia Incl Fundoplasty W/O Mesh ([id number]) 03/05/2022 1:58 PM EDT Paraesophageal Hernia POCT GLUCOSE Routine 03/05/2022 12:18 PM EDT LAPAROSCOPIC PARAESOPHAGEAL HERNIA REPAIR W FUNDOPLASTY, W/O MESH Routine 03/05/2022 12:02 PM EDT documented in this encounter Results * (ABNORMAL) Differential, Automated (03/07/2022 5:08 AM EDT) Neutrophils % 80.0 % [facility] Neutr Abs (ANC) 5.30 1.70 - 6.10 x10(3)/mc L [facility] Lymphocytes % 12.1 % [facility] Lymphocytes Abs 0.8(L) 0.9 - 3.2 x10(3)/mc L [facility] Monocytes % 7.6 % [facility] Monocyte Abs 0.5 0.3 - 0.9 x10(3)/mc L [facility] Eosinophils % 0.0 % [facility] Eosinophils Abs 0.0 0.0 - 0.4 x10(3)/[facility] Basophils % 0.0 % [facility] Basophils Abs 0.0 0.0 - 0.1 x10(3)/[facility] Immature Gran % 0.30 % [facility] Comment: Immature granulocytes(IG's)percentage and absolute count will include metamyelocytes, myelocytes, and promyelocytes. Blood smears from CBCs yielding IG's will be scanned manually for concordance. If this scan disagrees with the automated IG or if promyelocytes are noted, a manual differential will be performed. Elenita Gran Abs 0.02 0.00 - 0.04 x10(3)/[facility] Blood 03/07/2022 5:08 AM EDT 03/07/2022 5:19 AM EDT Narrative Resulting Agency Comment Spec In Lab Nino Levy MD HEMATOLOGY ORDERABLE S [facility] [place] [address] * (ABNORMAL) Hemogram (03/07/2022 5:08 AM EDT) WBC 6.6 4.0 - 9.5 x10(3)/[facility] RBC 3.16(L) 4.00 - 5.21 x10(6)/[facility] Hemoglobin 10.7(L) 11.7 - 15.5 g/dL [facility] Hematocrit 31.7(L) 35.7 - 45.8 % [facility] MCV 100.3(H) 82.6 - 94.4 fL [facility] MCH 33.9(H) 27.1 - 32.0 pg [facility] MCHC 33.8 31.7 - 35.0 g/dL [facility] Platelets 110(L) 145 - 357 x10(3)/[facility] RDWSD 47.5(H) 37.0 - 46.0 fL [facility] RDWCV 12.9 11.5 - 14.1 % [facility] MPV 11.7 7.6 - 12.9 fL [facility] nRBC % Auto 0.0 % [facility] nRBC Abs Auto 0.000 0.000 - 0.000 x10(3)/[facility] Blood 03/07/2022 5:08 AM EDT 03/07/2022 5:19 AM EDT Narrative Resulting Agency Comment Spec In Lab Nino Levy MD HEMATOLOGY ORDERABLE S Performing Organization Address City/[facility]/[place] [address] * Phosphorus (03/07/2022 5:08 AM EDT) Phosphorus 2.7 2.5 - 4.5 mg/dL [facility] Blood 03/07/2022 5:08 AM EDT 03/07/2022 5:19 AM EDT Narrative Resulting Agency Comment Spec In Lab Shania Will MD CHEMISTRY ORDERABLE S Performing Organization Address City/[facility]/ZIP Co de Phone Number [facility] [place] [address] * Magnesium (03/07/2022 5:08 AM EDT) Magnesium 0.89 0.69 - 1.07 mmol/L [facility] Blood 03/07/2022 5:08 AM EDT 03/07/2022 5:19 AM EDT Narrative Resulting Agency Comment Spec In Lab Shania Will MD CHEMISTRY ORDERABLE S [facility] [place] [address] * (ABNORMAL) Basic Metabolic Panel (non-fasting) (03/07/2022 5:08 AM EDT) Glucose Lvl 111 65 - 199 mg/dL [facility] Comment:Diabetes: >=200 mg/d L plus symptoms BUN 22(H) 8 - 18 mg/dL [facility] Creatinine 0.93 0.70 - 1.20 mg/dL [facility] Sodium 131(L) 135 - 145 mmol/L [facility] Potassium 4.5 3.5 - 5.0 mmol/L [facility] Comment: Please note: ??Patients with WBC >100,000 may have falsely elevated Potassium levels. ??For accurate Potassium quantification in these patients send serum separator tube (gold top) for subsequent determinations. ??Contact the Clinical Chemistry Laboratory if there are any questions. Chloride 100 98 - 107 mmol/L [facility] CO2 22 22 - 31 mmol/L [facility] Anion Gap 9 5 - 15 mmol/L [facility] Calcium 9.2 8.5 - 10.5 mg/dL [facility] Estimated GFR 64 >=60 mL/min/1. 73 m?? [facility] Comment: This patient's estimated GFR [...] MD CHEMISTRY ORDERABLE S Performing Organization Address City/[facility]/ZIP Co de Phone Number [facility] [place] [address] * (ABNORMAL) Differential, Automated (03/06/2022 10:15 AM EDT) Neutrophils % 90.7 % [facility] Neutr Abs (ANC) 5.79 1.70 - 6.10 x10(3)/ L [facility] Lymphocytes % 5.0 % [facility] Lymphocytes Abs 0.3(L) 0.9 - 3.2 x10(3)/[facility] Monocytes % 3.8 % [facility] Monocyte Abs 0.2(L) 0.3 - 0.9 x10(3)/[facility] Eosinophils % 0.0 % [facility] Eosinophils Abs 0.0 0.0 - 0.4 x10(3)/[facility] Basophils % 0.0 % [facility] Basophils Abs 0.0 0.0 - 0.1 x10(3)/[facility] Immature Gran % 0.50 % [facility] Comment: Immature granulocytes(IG's)percentage and absolute count will include metamyelocytes, myelocytes, and promyelocytes. Blood smears from CBCs yielding IG's will be scanned manually for concordance. If this scan disagrees with the automated IG or if promyelocytes are noted, a manual differential will be performed. Elenita Gran Abs 0.03 0.00 - 0.04 x10(3)/ L [facility] Blood 03/06/2022 10:1 5 AM EDT 03/06/2022 10:21 AM EDT Narrative Resulting Agency Comment Spec In Lab Maryam MUELLER HEMATOLOGY ORDERABL ES Performing Organization Address [facility]/ZIP Co de Phone Number [facility] [place] [address] * (ABNORMAL) Hemogram (03/06/2022 10:15 AM EDT) WBC 6.4 4.0 - 9.5 x10(3)/[facility] RBC 3.07(L) 4.00 - 5.21 x10(6)/[facility] Hemoglobin 10.5(L) 11.7 - 15.5 g/dL [facility] Hematocrit 31.1(L) 35.7 - 45.8 % [facility] MCV 101.3(H) 82.6 - 94.4 fL [facility] MCH 34.2(H) 27.1 - 32.0 pg [facility] MCHC 33.8 31.7 - 35.0 g/dL [facility] Platelets 111(L) 145 - 357 x10(3)/[facility] RDWSD 47.2(H) 37.0 - 46.0 [facility] RDWCV 12.9 11.5 - 14.1 % [facility] MPV 11.5 7.6 - 12.9 fL [facility] nRBC % Auto 0.0 % [facility] nRBC Abs Auto 0.000 0.000 - 0.000 x10(3)/[facility] Blood 03/06/2022 10:1 5 AM EDT 03/06/2022 10:21 AM EDT Narrative Resulting Agency Comment Spec In Lab Maryam MUELLER HEMATOLOGY ORDERABL ES [facility] [place] [address] * Phosphorus (03/06/2022 10:15 AM EDT) Phosphorus 3.3 2.5 - 4.5 mg/dL [facility] Blood 03/06/2022 10:1 5 AM EDT 03/06/2022 10:21 AM EDT Narrative Resulting Agency Comment Spec In Lab Shania Will MD CHEMISTRY ORDERABLE S Performing Organization Address City/[facility]/ZIP Co de Phone Number [facility] [place] [address] * Magnesium (03/06/2022 10:15 AM EDT) Magnesium 0.69 0.69 - 1.07 mmol/L [facility] Blood 03/06/2022 10:1 5 AM EDT 03/06/2022 10:21 AM EDT Narrative Resulting Agency Comment Spec In Lab Shania Will MD CHEMISTRY ORDERABLE S Performing Organization Address [facility] Co de Phone Number [facility] [place] [address] * (ABNORMAL) Basic Metabolic Panel (non-fasting) (03/06/2022 10:15 AM EDT) Pathologist [facility] Glucose Lvl 155 65 - 199 mg/dL [facility] Comment:Diabetes: >=200 mg/d L plus symptoms BUN 29(H) 8 - 18 mg/dL [facility] Creatinine 1.25(H) 0.70 - 1.20 mg/dL [facility] Sodium 134(L) 135 - 145 mmol/L [facility] Potassium 4.8 3.5 - 5.0 mmol/L [facility] Comment: Please note: ??Patients with WBC >100,000 may have falsely elevated Potassium levels. ??For accurate Potassium quantification in these patients send serum separator tube (gold top) for subsequent determinations. ??Contact the Clinical Chemistry Laboratory if there are any questions. Chloride 101 98 - 107 mmol/L [facility] CO2 23 22 - 31 mmol/L [facility] Anion Gap 10 5 - 15 mmol/L [facility] Calcium 8.9 8.5 - 10.5 mg/dL [facility] Estimated GFR 45(L) >=60 mL/min/1. 73 m?? [facility] Comment: This patient's estimated GFR [...] Lab Shania Will MD CHEMISTRY ORDERABLE S [facility] [place] [address] * (ABNORMAL) Differential, Automated (03/06/2022 4:29 AM EDT) Neutrophils % 90.5 % [facility] Neutr Abs (ANC) 4.47 1.70 - 6.10 x10(3)/mc L [facility] Lymphocytes % 6.9 % [facility] Lymphocytes Abs 0.3(L) 0.9 - 3.2 x10(3)/mc L [facility] Monocytes % 2.2 % [facility] Monocyte Abs 0.1(L) 0.3 - 0.9 x10(3)/mc L [facility] Eosinophils % 0.0 % [facility] Eosinophils Abs 0.0 0.0 - 0.4 x10(3)/mc L [facility] Basophils % 0.2 % [facility] Basophils Abs 0.0 0.0 - 0.1 x10(3)/mc L [facility] Immature Gran % 0.20 % [facility] Comment: Immature granulocytes(IG's)percentage and absolute count will include metamyelocytes, myelocytes, and promyelocytes. Blood smears from CBCs yielding IG's will be scanned manually for concordance. If this scan disagrees with the automated IG or if promyelocytes are noted, a manual differential will be performed. Elenita Gran Abs 0.01 0.00 - 0.04 x10(3)/mc L [facility] Blood 03/06/2022 4:29 AM EDT 03/06/2022 4:49 AM EDT Narrative Resulting Agency Comment Spec In Lab Prakash Mendez MD HEMATOLOGY ORDERABLE S [facility] [place] [address] * (ABNORMAL) Hemogram (03/06/2022 4:29 AM EDT) WBC 4.9 4.0 - 9.5 x10(3)/[facility] RBC 3.08(L) 4.00 - 5.21 x10(6)/[facility] Hemoglobin 10.5(L) 11.7 - 15.5 g/dL [facility] Hematocrit 31.0(L) 35.7 - 45.8 % [facility] MCV 100.6(H) 82.6 - 94.4 fL [facility] MCH 34.1(H) 27.1 - 32.0 pg [facility] MCHC 33.9 31.7 - 35.0 g/dL [facility] Platelets 104(L) 145 - 357 x10(3)/[facility] RDWSD 47.5(H) 37.0 - 46.0 [facility] RDWCV 12.9 11.5 - 14.1 % [facility] MPV 11.8 7.6 - 12.9 [facility] nRBC % Auto 0.0 % [facility] nRBC Abs Auto 0.000 0.000 - 0.000 x10(3)/mcL [facility] Blood 03/06/2022 4:29 AM EDT 03/06/2022 4:49 AM EDT Narrative Resulting Agency Comment Spec In Lab Prakash Mendez MD HEMATOLOGY ORDERABLE S [facility] [place] [address] * (ABNORMAL) Basic Metabolic Panel (non-fasting) (03/06/2022 4:29 AM EDT) Glucose Lvl 140 65 - 199 mg/dL [facility] Comment:Diabetes: >=200 mg/d L plus symptoms BUN 31(H) 8 - 18 mg/dL [facility] Creatinine 1.32(H) 0.70 - 1.20 mg/dL [facility] Sodium 136 135 - 145 mmol/L [facility] Potassium 5.3(H) 3.5 - 5.0 mmol/L [facility] Comment: Please note: ??Patients with WBC >100,000 may have falsely elevated Potassium levels. ??For accurate Potassium quantification in these patients send serum separator tube (gold top) for subsequent determinations. ??Contact the Clinical Chemistry Laboratory if there are any questions. Chloride 103 98 - 107 mmol/L [facility] CO2 23 22 - 31 mmol/L [facility] Anion Gap 10 5 - 15 mmol/L [facility] Calcium 9.0 8.5 - 10.5 mg/dL [facility] Estimated GFR 42(L) >=60 mL/min/1. 73 m?? [facility] Comment: This patient's estimated GFR [...] MD CHEMISTRY ORDERABLE S Performing Organization Address City/[facility] Co de Phone Number [facility] [place] [address] * POCT Glucose (03/05/2022 12:18 PM EDT) POC Glucose 94 65 - 199 mg/dL [facility] Comment: Supplemental ranges: <140 mg/dL before meals <180 mg/dL all other times of the day Blood 03/05/2022 12:1 8 PM EDT 03/05/2022 12:18 PM EDT Shania Will MD POINT OF CARE TEST ORDERABLES Performing Organization Address [facility] Co de Phone Number [facility] [place] [address] documented in this encounter Visit Diagnoses Not [...] Unit) documented in this encounter Care Teams Cooking Casing And Drying Supervisor Relationship Specialty Start Date End Date Ana Her MD [facility] [address] [facility] [address] [place] [address] PCP - General 07/29/13 documented as of this encounter
--- OUTSIDE RECORDS SUMMARY | 2023-12-02 14:02 | XMS_ITS | Encounter Summary ---
Author Organization [facility] [place] [address] Care Team Providers Care Bulk Mail Technician Name Role Phone Ana Her MD Primary Care Provider [phone] Reason for Visit * Consultation (Routine) - Closed Specialty Diagnoses / Procedures Referred By Christiano hackett Referred To Contact General Surgery Diagnoses Hiatal hernia Ana Her MD [address] [place] [address] [facility] Gen Surgery [address] [place] [address] Referral ID Status Reason Start Date Expiration Date V isits Requested Visits Authorized [id number] Closed Consult, Test & Treat 09/23/2021 09/23/2022 6 6 Encounter Details Date Type Department Care Team (Latest Contact Info) Description 12/05/2021 3:00 PM EDT Office [place] [address] Laura Will MD [facility] [place] [address] Paraesophageal hernia Social History Tobacco [...] of left breast of female, estrogen receptor [id number], Z17.0 ??? Anemia D64.9 ??? Aortic valve [...] 6.43) performed by Malika Chen MD at [facility] MAIN OR ??? PRO INTRAOP SENTINEL LYMPH ID W/DYE INJECTION Left 03/30/2017 INTRAOPERATIVE ID (MAPPING) SENTINEL LYMPH NODE,INCLUDES INJECTION (WRVU 2.5) performed by Malika Chen MD at [facility] MAIN OR ??? PRO MASTECTOMY PARTIAL Left 03/30/2017 MASTECTOMY PARTIAL (WRVU 10.13) performed by Malika Chen MD at [facility] MAIN OR Cholecystectomy Medications: Current Outpatient [...] gangrene documented in this encounter Care Teams Bulk Mail Technician Relationship Specialty Start Date End Date Ana Her MD [address] [place] [address] PCP - General 07/29/13 documented as of this encounter
--- OUTSIDE RECORDS SUMMARY | 2023-12-02 14:02 | XMS_ITS | Encounter Summary ---
Author Organization Formerly [facility] [place] [address] Care Team Providers Care Waste Water Worker Name Role Phone Ana Her MD Primary Care Provider [phone] Encounter Details Date Type Department Care Team (Latest Contact Info) Description 01/08/2022 6:11 AM EDT - 01/08/2022 9:40 AM EDT Hospital Encounter [place] [id number] Laura Park MD [facility] [place] [address] Discharge Disposition: Home Social History Tobacco Use [...] a nurse in the [facility]acic [facility] at [phone]. After hours or on weekends or holidays please call: [phone] and ask to speak to the Thoracic Physician manager utilization review. Diet: You should follow a clear liquid [...] - 5pm): General Surgery and Bariatric Surgery [phone] Bariatric Surgeons: Drs. Park and John [phone] Pipe Tester: [phone] Dietitians: [phone] Outside of regular business hours, including weekends and holidays: Ask for General Surgery resident manager utilization review [phone] Please note, this call will be answered [...] is a 76 y.o. female referred by Aan Her MD for evaluation of symptomatic paraesophageal [...] of left breast of female, estrogen receptor xtqwbbmpD72.512, Z17.0 ??? Anemia D64.9 ??? Aortic valve [...] 6.43) performed by Malika Chen MD at [facility] MAIN OR ??? PRO INTRAOP SENTINEL LYMPH ID W/DYE INJECTION Left 03/30/2017 ?? INTRAOPERATIVE ID (MAPPING) SENTINEL LYMPH NODE,INCLUDES INJECTION (WRVU 2.5) performed by Malika Chen MD at [facility] MAIN OR ??? PRO MASTECTOMY PARTIAL Left 03/30/2017 ?? MASTECTOMY PARTIAL (WRVU 10.13) performed by Malika Chen MD at [facility] MAIN OR ?? Cholecystectomy ?? Medications: [...] Park MD - 01/08/2022 7:48 AM EDT [facility] Operative Note Patient Name: Digna Olson : [id number] MR#: [id number] Case Date: 01/08/2022 Surgeon: Surgeon(s) and Role: [...] Info Order Time SPECIMEN TO PATHOLOGY Gastric [place] for H Pylori Hiatal hernia Gastric [place] for H Pylori excision 01/08/2022 8:15 AM [...] 8:14 AM EDT Upper GI Endoscopy, Diagnostic (35313) Yes 01/08/2022 7:40 AM EDT Hiatal hernia POCT GLUCOSE Routine 01/08/2022 6:33 AM EDT documented in this encounter Results * Specimen to Pathology (01/08/2022 8:15 AM EDT) AP Specimen 01/08/2022 8:15 AM EDT 01/08/2022 8:15 AM EDT Narrative [facility] - 01/08/2022 8:15 AM EDT Specimen requisition ordered. ??Separate Pathology report to follow Laura Park MD PATHOLOGY/CYTOLOGY ORDERABLES [facility] [place] [address] * Surgical Pathology Report (01/08/2022 8:14 AM EDT) FINAL DIAGNOSIS (AP) [id number] ? Location: SDP; SD; A The signing pathologist has (i) examined the relevant preparation(s) for the specimen(s) and (ii) rendered or confirmed the diagnosis(es). . ?Surgical Pathology DIAGNOSIS A - Gastric ??Antrum for H Pylori, excision: - ??Antrum-type mucosa with reactive gastropathy. Electronically signed by: ?Umang Raymundo MD Verified: ??01/09/2022 16:36 ??Pathologist Performed at: ??-[facility] Dept. of Pathology, [place], [place] SPECIMEN(S) SUBMITTED A - Gastric ??Antrum for H Pylori, excision (1) CLINICAL INFORMATION Hiatal hernia SPECIMEN PROCESSING A - Labeled/Fixativ e: Gastric antrum for H. pylori, formalin. Quantity/Size: Single, 0.3 cm. Tissue Description: Soft, pink tissue. Sections/Proces sing: Submitted en toto ??in 1 cassette labeled A1. ??sns 01/09/2022 4:36 PM EDT [facility] GI Biopsy 01/08/2022 8:14 AM EDT 01/08/2022 8:14 AM EDT Laura Park MD PATHOLOGY/CYTOLOGY ORDERABLES [facility] [place] [address] * POCT Glucose (01/08/2022 6:33 AM EDT) POC Glucose 120 65 - 199 mg/dL [facility] Comment: Supplemental ranges: <140 mg/dL before meals <180 mg/dL all other times of the day Blood 01/08/2022 6:33 AM EDT 01/08/2022 6:33 AM EDT Laura Park MD POINT OF [place] [address] documented in this encounter Visit Diagnoses Not on filedocumented in this encounter Active and Recently Administered Medications Care Teams Waste Water Worker Relationship Specialty Start Date End Date Ana Her MD [address] [place] [address] PCP - General 07/29/13 documented as of this encounter
--- OUTSIDE RECORDS SUMMARY | 2023-12-02 14:02 | XMS_ITS | Encounter Summary ---
Author Organization [place] [address] Care Team Providers Care Usability Architect Name Role Phone Ana Her MD Primary Care Provider [phone] Encounter Details Date Type Department Care Team (Latest Contact Info) Description 01/23/2022 12:15 PM EDT TH Visit (TeleHealth) [place] [address] Laura Will MD [facility] [place] [address] Paraesophageal hernia Social History Tobacco Use Types [...] her. She is followed by cardiology at [facility], and is on xarelto. Impression: Symptomatic paraesophageal [...] gangrene documented in this encounter Care Teams Usability Architect Relationship Specialty Start Date End Date Ana Her MD [address] [facility] [address] [place] [address] PCP - General 07/29/13 documented as of this encounter
--- OUTSIDE RECORDS SUMMARY | 2023-12-02 14:02 | XMS_ITS | Encounter Summary ---
Author Organization [facility] Address 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, estrogen receptor positive Osteopenia of neck of femur, unspecified laterality [facility] current 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 Procedures DXA Central-Spine, Hip, And/Or Whole Body (Generic) Ricky Lowry MD [facility] HEMATOLOGY/[place] [address] [facility] Rad Xray [address] [place] [address] [place] [address] Referral ID Status Reason Start Date Expiration Date V isits Requested Visits Authorized [id number] Closed Specialty Service Requested 05/10/2018 05/10/2019 1 1 Reason for Visit * Diagnostic Test (Routine) - Closed Specialty Diagnoses / Procedures Referred By Contmary t Referred To Contact Radiology Diagnoses 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, estrogen receptor positive Osteopenia of neck of femur, unspecified laterality [facility] current 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 Procedures DXA Central-Spine, Hip, And/Or Whole Body (Generic) Ricky Lowry MD [facility] HEMATOLOGY/[place] [address] [facility] Rad Xray [address] [place] [address] [place] [address] Referral ID Status Reason Start Date Expiration Date V isits Requested Visits Authorized [id number] Closed Specialty Service Requested 05/10/2018 05/10/2019 1 1 Encounter Details Date Type Department Care Team (Latest Contact Info) Description 11/09/2018 1:03 PM EDT - 11/09/2018 11:59 PM EDT Hospital Encounter XRay at [address] [place] [address] Ricky Lowry MD [facility] HEMATOLOGY/[place] [address] 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, estrogen receptor positive; Osteopenia of neck of femur, unspecified laterality; 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 Paper copies will be sent to providers without [employer] access. If you have received this report without the data sheet and do not have access to [employer], please contact Radiology Gold Letterer at [phone] Thursday thru Thursday 8am-4pm. Thank you for [...] BMD measurements and plots are available in [employer] the imaging tab. Paper copies will be sent to providers without [employer] access.If you have received this report without the data sheet and do not haveaccess to [employer], please contact Radiology Gold Letterer at [phone] Thursday thruFriday 8am-4pm. Thank you for letting us participate in the care of this patient. Forquestions regarding this report, please contact the number below. 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
--- OUTSIDE RECORDS SUMMARY | 2023-12-02 14:02 | XMS_ITS | Encounter Summary ---
[place] [address] Care Team Providers Care Seamless Tube Drawer Name Role Phone Ana Her MD Primary Care Provider [phone] Encounter Details Date Type Department Care Team (Late st Contact Info) Description 06/12/2021 Telephone [place] [address] Chelsie Lauren Social History Tobacco Use Types [...] on filedocumented in this encounter Care Teams Seamless Tube Drawer Relationship Specialty Start Date End Date Ana Her MD [address] [place] [address] PCP - General 07/29/13 documented as of this encounter
--- OUTSIDE RECORDS SUMMARY | 2023-12-02 14:02 | XMS_ITS | Encounter Summary ---
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 Procedures DXA Central-Spine, Hip, And/Or Whole Body (Generic) Ricky Lowry MD [facility] HEMATOLOGY/[place] [address] [facility] Rad Xray [address] [place] [address] [place] [id number] Referral ID Status Reason Start Date Expiration Date V isits Requested Visits Authorized [id number] Closed Specialty Service Requested 05/10/2018 05/10/2019 1 1 Reason for Visit * Reason Comments Follow-up Encounter Details Date Type Department Care Team (Late st Contact Info) Description 05/10/2018 2:45 PM EST Office Visit [place]ology [place] [address] Ricky Lowry MD [facility] [place] [address] Malignant neoplasm of lower-outer quadrant of left [...] ??Excision with image-guided localization ?Lymph Node Sampling: ??[place] lymph node(s) ?Specimen Laterality: ??Left Tumor ?Histologic [...] ??DCIS not present in specimen Lymph Nodes ?[place] Lymph Nodes: [place] lymph node biopsy performed ?Number of [place] Nodes Examined: ??3 ?Number of Lymph Node(s) [...] [facility]. Most recent DEXA scan was last year at [facility]. There is no history of thromboembolic [...] is planned for later this week (at [facility] No new problems with VELEZ, diplopia, cough, [...] chemotherapy. TACHO. Renewal of anastrazole sent. Given [facility] brochure to share with cousins. [...] BMD measurements and plots are available in [employer] under the imaging tab. Paper copies will be sent to providers without [employer] access. If you have received this report without the data sheet and do not have access to [employer], please contact Radiology [facility] at [phone] Thursday thru Thursday 8am-4pm. Thank you for [...] BMD measurements and plots are available in [employer] the imaging tab. Paper copies will be sent to providers without [employer] access.If you have received this report without the data sheet and do not haveaccess to [employer], please contact Radiology [facility] at [phone] Thursday thruFriday 8am-4pm. Thank you for letting us participate in the care of this patient. Forquestions regarding this report, please contact the number below. 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
--- OUTSIDE RECORDS SUMMARY | 2023-12-02 14:02 | XMS_ITS | Encounter Summary ---
[place] [address] Care Team Providers Care Clinical Nursing Intern Name Role Phone Ana Her MD Primary Care Provider [phone] 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 * Consultation (Routine) - Closed Specialty Diagnoses / Procedures Referred By Christiano hackett Referred To Contact Plastic Surgery Diagnoses 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, estrogen receptor positive Macromastia Jeanine Lobato APRN [facility] [place] [address] [facility] Plastic Surg [address] [address] Referral ID Status Reason Start Date Expiration Date V isits Requested Visits Authorized [id number] Closed Consult, Test & Treat 06/11/2021 06/11/2022 1 1 Encounter Details Date Type Department Care Team (Late st Contact Info) Description 06/11/2021 10:00 AM EST Office [place] [address] Jeanine Lobato APRN [facility] [place] [address] Encounter for follow-up surveillance of [...] this encounter Progress Notes * Jeanine Lobato, TOBACCO CHECKOUT CLERK - 06/11/2021 10:00 AM EST Images from [...] was obtained which revealed IDC which is ER/VT positive, Her2 negative. Alma Delia opted against [...] mm Grade Intermediate Margins Negative ER Positive VT Positive HER-2 Negative OncotypeDx Recurrence Score N/A [...] Family history of ovarian cancer No Ashkenazi Latter Day heritage No Known genetic mutation Not tested [...] to speak almost daily. He lives in [place] and is beginning to show early signs [...] Results: Imaging performed (bilateral mammogram) at [facility] today shows no evidence of malignancy, [...] free apps for your cell phone from [employer] (Healthy Living) and [employer] ([employer]). All questions were answered to the patient's satisfaction and they state understanding and agreement with today's treatment plan. They are encouraged to follow up sooner if they develop any new or concerning symptoms. Jeanine Lobato APRN Surgical Oncology P [phone] F [phone] [facility] documented in this encounter Plan of [...] documented in this encounter Care Teams Clinical Nursing Intern Relationship Specialty Start Date End Date Ana Her MD [address] [place] [address] PCP - General 07/29/13 documented as of this encounter
--- OUTSIDE RECORDS SUMMARY | 2023-12-02 14:02 | XMS_ITS | Encounter Summary ---
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 Procedures DXA Central Spine, Hip, and/or Whole Body (Generic) Ricky Lowry MD [facility] HEMATOLOGY/[place] [address] [facility] Rad Xray [address] [place] [address] [place] [address] Referral ID Status Reason Start Date Expiration Date V isits Requested Visits Authorized [id number] Closed Specialty Service Requested 05/22/2020 11/19/2021 1 1 Reason for Visit * Diagnostic Test (Routine) - Closed Specialty Diagnoses / Procedures Referred By Contac t Referred To Contact Radiology Diagnoses 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, estrogen receptor positive Osteopenia of neck of femur, unspecified laterality 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 Procedures DXA Central Spine, Hip, and/or Whole Body (Generic) Ricky Lowry MD [facility] HEMATOLOGY/[place] [address] [facility] Rad Xray [address] [place] [address] [place] [address] Referral ID Status Reason Start Date Expiration Date V isits Requested Visits Authorized [id number] Closed Specialty Service Requested 05/22/2020 11/19/2021 1 1 Encounter Details Date Type Department Care Team (Latest Contact Info) Description 11/15/2020 2:25 PM EDT - 11/15/2020 11:59 PM EDT Hospital Encounter XRay at [address] [place] [address] Ricky Lowry MD [facility] HEMATOLOGY/[place] [address] 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, estrogen receptor positive; Osteopenia of neck of femur, unspecified laterality; 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 If you have received this report without the data sheet and do not have access to [employer], please contact Radiology [facility] at [phone] Thursday thru Thursday 8am-4pm. Thank you for letting us participate in the care of this patient. ??If you are a health care provider and have any questions regarding this report, please contact the number below. ??For patients who have questions please contact the health critical care registered nurse that requested your imaging first. ? Narrative [...] BMD measurements and plots are available in [employer] the imaging tab. Paper copies will be sent to providers without [employer] access.If you have received this report without the data sheet and do not haveaccess to [employer], please contact Radiology Supercalender Operator at [phone] Thursday thr 8am-4pm. Thank you for letting us participate in the care of this patient. If youare a health care provider and have any questions regarding this report,please contact the number below. For patients who have questions please contactthe health critical care registered nurse that requested your imaging first. 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
--- OUTSIDE RECORDS SUMMARY | 2023-12-02 14:02 | XMS_ITS | Encounter Summary ---
[place] [address] Care Team Providers Care Delineator Name Role Phone Ana Her MD Primary Care Provider [phone] Encounter Details Date Type Department Care Team (Late st Contact Info) Description 01/08/2022 7:30 AM EDT - 01/08/2022 8:40 AM EDT [place] [phone] Laura Park MD [facility] [place] [address] EGD, UPPER GI ENDOSCOPY (WRVU 2.09) Social [...] a nurse in the Thoracic Clinic at [phone]. After hours or on weekends or holidays please call: [phone] and ask to speak to the Thoracic Physician electrical and electronic assembler. Diet: You should follow a clear liquid [...] - 5pm): General Surgery and Bariatric Surgery [phone] Bariatric Surgeons: Drs. Park and John [phone] Machine Tender: [phone] Dietitians: [phone] Outside of regular business hours, including weekends and holidays: Ask for General Surgery resident electrical and electronic assembler [phone] Please note, this call will be answered [...] of left breast of female, estrogen receptor liutqiwzH06.512, Z17.0 ??? Anemia D64.9 ??? Aortic valve [...] 6.43) performed by Malika Chen MD at [facility] MAIN OR ??? PRO INTRAOP SENTINEL LYMPH ID W/DYE INJECTION Left 03/30/2017 ?? INTRAOPERATIVE ID (MAPPING) SENTINEL LYMPH NODE,INCLUDES INJECTION (WRVU 2.5) performed by Malika Chen MD at [facility] MAIN OR ??? PRO MASTECTOMY PARTIAL Left 03/30/2017 ?? MASTECTOMY PARTIAL (WRVU 10.13) performed by Malika Chen MD at [facility] MAIN OR ?? Cholecystectomy ?? Medications: [...] Park MD - 01/08/2022 7:48 AM EDT [facility] Operative Note Patient Name: Digna Olson : [id number] MR#: [id number] Case Date: 01/08/2022 Surgeon: Surgeon(s) and Role: [...] Info Order Time SPECIMEN TO PATHOLOGY Gastric [place] for H Pylori Hiatal hernia Gastric [place] for H Pylori excision 01/08/2022 8:15 AM [...] 8:14 AM EDT Upper GI Endoscopy, Diagnostic (68005) Yes 01/08/2022 7:40 AM EDT Hiatal hernia [...] PATHOLOGY/CYTOLOGY ORDERABLES [facility] [place] [address] * Surgical Pathology Report (01/08/2022 8:14 AM EDT) FINAL DIAGNOSIS (AP) [id number] ? Location: SDP; SD36; A The signing pathologist has (i) examined the relevant preparation(s) for the specimen(s) and (ii) rendered or confirmed the diagnosis(es). . ?Surgical Pathology DIAGNOSIS A - Gastric ??Antrum for H Pylori, excision: - ??Antrum-type mucosa with reactive gastropathy. Electronically signed by: ?Umang Raymundo MD Verified: ??01/09/2022 16:36 ??Pathologist Performed at: ??-[facility] Dept. of Pathology, [place], [place] SPECIMEN(S) SUBMITTED A - Gastric ??Antrum for H Pylori, excision (1) CLINICAL INFORMATION Hiatal hernia SPECIMEN PROCESSING A - Labeled/Fixativ e: Gastric antrum for H. pylori, formalin. Quantity/Size: Single, 0.3 cm. Tissue Description: Soft, pink tissue. Sections/Proces sing: Submitted en toto ??in 1 cassette labeled A1. ??sns 01/09/2022 4:36 PM EDT [facility] GI Biopsy 01/08/2022 8:14 AM EDT 01/08/2022 8:14 AM EDT Laura Park MD PATHOLOGY/CYTOLOGY ORDERABLES [facility] [place] [address] * POCT Glucose (01/08/2022 6:33 AM EDT) POC Glucose 120 65 - 199 mg/dL [facility] Comment: Supplemental ranges: <140 mg/dL before meals <180 mg/dL all other times of the day Blood 01/08/2022 6:33 AM EDT 01/08/2022 6:33 AM EDT Laura Park MD POINT [place] [address] documented in this encounter Visit Diagnoses Not on filedocumented in this encounter Active and Recently Administered Medications Care Teams Delineator Relationship Specialty Start Date End Date Ana Her MD [address] [facility] [address] [place] [address] PCP - General 07/29/13 documented as of this encounter
--- OUTSIDE RECORDS SUMMARY | 2023-12-02 14:02 | XMS_ITS | Encounter Summary ---
[place] [address] Care Team Providers Care Electrical And Radio Mechanic Name Role Phone Ana Her MD Primary Care Provider [phone] Encounter Details Date Type Department Care Team (Late st Contact Info) Description 11/01/2021 Telephone [place] [phone] Chelsie Lauren Social History Tobacco Use Types [...] on filedocumented in this encounter Care Teams Electrical And Radio Mechanic Relationship Specialty Start Date End Date Ana Her MD [address] [place] [address] PCP - General 07/29/13 documented as of this encounter
--- OUTSIDE RECORDS SUMMARY | 2023-12-02 14:02 | XMS_ITS | Encounter Summary ---
[place] [address] Care Team Providers Care Manager Of Pmo Name Role Phone Ana Her MD Primary Care Provider [phone] Reason for Visit * Reason Comments Follow-up Encounter Details Date Type Department Care Team (Late st Contact Info) Description 05/22/2020 11:40 AM EST Office [place] [address] Jeanine Lobato APRN [facility] [place] [address] Encounter for follow-up surveillance of breast cancer; [...] was obtained which revealed IDC which is ER/MD positive, Her2 negative. Alma Delia opted against [...] ??Excision with image-guided localization ?Lymph Node Sampling: ??[place] lymph node(s) ?Specimen Laterality: ??Left Tumor ?Histologic [...] ??DCIS not present in specimen Lymph Nodes ?[place] Lymph Nodes: [place] lymph node biopsy performed ?Number of [place] Nodes Examined: ??3 ?Number of Lymph Node(s) [...] herex- speak almost daily. [place] [...] situation. Results: [place] [facility] shows no evidence [...] - Mammo Screening Cad and Jeramy Bilateral; May 2021 I have discussed my [...] available at [employer] [facility]) and [employer]. All questions were answered to the patient's satisfaction and they state understanding and agreement with today's treatment plan. They are encouraged to follow up sooner if they develop any new or concerning symptoms. Jeanine Lobato APRN Surgical Oncology P [phone] F [phone] [facility] documented in this encounter Plan of [...] who have questions please contact the health home care giver that requested your imaging first. ? Jeanine [...] in this encounter Care Teams Manager Of Pmo Relationship Specialty Start Date End Date Ana Her MD [facility] [address] [place] [address] PCP - General 07/29/13 documented as of this encounter
--- OUTSIDE RECORDS SUMMARY | 2023-12-02 14:02 | XMS_ITS | Encounter Summary ---
Author Organization [facility] [place] [address] Care Team Providers Care Book Store Associate Name Role Phone Ana Her MD Primary Care Provider [phone] Encounter Details Date Type Department Care Team (Latest Contact Info) Description 05/22/2020 10:46 AM EST - 05/22/2020 11:59 PM [facility] Hospital Encounter Mammography/[place] [phone] Jeanine Lobato APRN [facility] [place] [address] Malignant neoplasm of lower-outer quadrant of left [...] mammogram documented in this encounter Care Teams Book Store Associate Relationship Specialty Start Date End Date Ana Her MD [facility] [address] [facility] [address] [place] [address] PCP - General 07/29/13 documented as of this encounter
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
--- OUTSIDE RECORDS SUMMARY | 2023-12-02 14:02 | XMS_ITS | Encounter Summary ---
Author Organization [facility] [place] [address] Care Team Providers Care Human Resources District Manager Name Role Phone Ana Her MD Primary Care Provider [phone] Encounter Details Date Type Department Care Team (Latest Contact Info) Description 06/11/2021 8:41 AM EST - 06/11/2021 11:59 PM [facility] Hospital Encounter Mammography/[place] [address] Jeanine Lobato APRN [facility] [place] [address] Malignant neoplasm of lower-outer quadrant of left [...] Take 40 mg by mouth daily. omega 8-sxw-xqa-fish-turm salty 417 mg-120 mg- 276 mg-600 mg [...] who have questions please contact the health dog daycare provider that requested your imaging first. ? Jeanine Lobato REMOTE CONTROL MIRROR INSTALLER IMG MAMMO ORD ERABLES documented in this encounter Visit Diagnoses Diagnosis 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, estrogen receptor positive Breast cancer screening by mammogram documented in this encounter Care Teams Human Resources District Manager Relationship Specialty Start Date End Date Ana Her MD [address] [place] [address] PCP - General 07/29/13 documented as of this encounter
--- OUTSIDE RECORDS SUMMARY | 2023-12-02 14:02 | XMS_ITS | Encounter Summary ---
[place] [address] Care Team Providers Care Coffee Shop Manager Name Role Phone Ana Her MD Primary Care Provider [phone] Encounter Details Date Type Department Care Team (Late st Contact Info) Description 02/26/2022 Orders [place] [address] Alicia Manning RN Social History Tobacco Use [...] on filedocumented in this encounter Care Teams Coffee Shop Manager Relationship Specialty Start Date End Date Ana Her MD [address] [place] [address] PCP - General 07/29/13 documented as of this encounter
--- OUTSIDE RECORDS SUMMARY | 2023-12-02 14:02 | XMS_ITS | Encounter Summary ---
Author Organization [facility] [place] [address] Care Team Providers Care Assembler Small Products Name Role Phone Ana Her MD Primary Care Provider [phone] Reason for Visit * Reason Comments Advice Only BBR * Consultation (Routine) - Closed Specialty Diagnoses / Procedures Referred By Christiano hackett Referred To Contact Plastic Surgery Diagnoses 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, estrogen receptor positive Macromastia Jeanine Lobato APRN [facility] [place] [address] [facility] Plastic Surg [address] [place] [address] Referral ID Status Reason Start Date Expiration Date V isits Requested Visits Authorized [id number] Closed Consult, Test & Treat 06/11/2021 06/11/2022 1 1 Encounter Details Date Type Department Care Team (Late st Contact Info) Description 07/09/2021 8:30 AM EST Office [place] [address] Med Hudson MD [facility] [place] [address] Macromastia Social History Tobacco Use [...] physical with your primary care doctor and Document Reviewer clearance Two Weeks prior to Surgery Do [...] Day of Surgery You will need a belly dump driver. If you do not have a belly dump driver, your surgery will be canceled. DO [...] For questions pertaining to your surgical date [phone] For nursing related questions [phone] On weekends, holidays or after office hours: Call and ask the pulper operator to page the Plastic Surgery Resident production weigher. documented in this encounter Progress Notes * [...] and was normal. [place] [facility] She has completed a breast specific questionnaire: [...] None of the time Conservative Therapy Treatments: [facility] CONSERVATIVE THERAPY TREATMENTS 07/09/2021 Physical therapy [...] 6.43) performed by Malika Chen MD at [facility] MAIN OR ??? PRO INTRAOP SENTINEL LYMPH ID W/DYE INJECTION Left 03/30/2017 INTRAOPERATIVE ID (MAPPING) SENTINEL LYMPH NODE,INCLUDES INJECTION (WRVU 2.5) performed by Malika Chen MD at [facility] MAIN OR ??? PRO MASTECTOMY PARTIAL Left 03/30/2017 MASTECTOMY PARTIAL (WRVU 10.13) performed by Malika Chen MD at [facility] MAIN OR Family History Problem Relation Age [...] surgery is best done at a realistic mcc stable weight. We talked about the outpatient [...] revisions for scarring or asymmetry.) Garcia or [place] Pattern Incision: More scarring on breast, but [...] Timeframe: Elective Procedure: Bilateral breast reduction CPT: 81804 Surgical Technique: Garcia, Pedicle Surgical site: Breasts Side: Bilateral Anesthesia: General Follow up: 1 day for drain removal; 7-10 days for HCK PAT: H+P PCP, Cardiac clearance. Need to discontinue blood thinners pre-op? Xarelto documented in this encounter Plan of Treatment Not on file documented as of this encounter Visit Diagnoses Diagnosis Macromastia Hypertrophy of breast documented in this encounter Care Teams Assembler Small Products Relationship Specialty Start Date End Date Ana Her MD [address] [place] [address] PCP - General 07/29/13 documented as of this encounter
--- OUTSIDE RECORDS SUMMARY | 2023-12-02 14:02 | XMS_ITS | Encounter Summary ---
Author Organization [facility] [place] [address] Care Team Providers Care Snow Fence Erector Name Role Phone Ana Her MD Primary Care Provider [phone] Encounter Details Date Type Department Care Team (Late st Contact Info) Description 01/08/2022 7:42 AM EDT Anesthesia Event [place] [address] Alisa Naqvi MD [facility] [place] [address] Anesthesia Record Procedure Summary Procedure Name Responsible [...] cephalic vein (lateral side of arm), left; dufr-hto-bitzqa catheter system; Anatomical Landmarks; 20 gauge; Joslyn RN; tolerated well, appears comfortable; 01/08/22; 92601/08/22732 by Sorin Hurd RN 01/08/22926 by Gabriela [...] Procedure Summary Date: 01/08/22 Room / Location: [facility] OR [address] [place] [address] MAIN OR Anesthesia Start: 741 Anesthesia Stop: 825 Procedure: EGD, UPPER GI ENDOSCOPY (N/A Trunk) Diagnosis: (Hiatal hernia) Surgeons: Laura Will MD Responsible Provider: Alisa Naqvi MD Anesthesia Type: general ASA Status: 3 All Anesthesia Providers: Anesthesiologist: Alisa Naqvi MD Tour Manager: Nghia Valerio MD Vitals Value Taken Time BP 98/56 01/08/22 0823 Temp Pulse Resp SpO2 99 % 01/08/22826 Pain Level Vitals shown include unvalidated device [...] of left breast of female, estrogen receptor rpsiyqnh86/25/2017 ??? Bicuspid aortic valve 06/10/2016 ??? Dyspnea [...] 6.43) performed by Malika Chen MD at [facility] MAIN OR ??? PRO INTRAOP SENTINEL LYMPH ID W/DYE INJECTION Left 03/30/2017 INTRAOPERATIVE ID (MAPPING) SENTINEL LYMPH NODE,INCLUDES INJECTION (WRVU 2.5) performed by Malika Chen MD at [facility] MAIN OR ??? PRO MASTECTOMY PARTIAL Left 03/30/2017 MASTECTOMY PARTIAL (WRVU 10.13) performed by Malika Chen MD at [facility] MAIN OR Social History Tobacco Use [...] mg documented in this encounter Care Teams Snow Fence Erector Relationship Specialty Start Date End Date Ana Her MD [facility] [address] [facility] 1 [place] [address] PCP - General 07/29/13 documented as of this encounter
--- OUTSIDE RECORDS SUMMARY | 2023-12-02 14:02 | XMS_ITS | Encounter Summary ---
[place] [address] Care Team Providers Care Cafeteria Associate Name Role Phone Ana Her MD Primary Care Provider Encounter Details Date Type Department Care Team (Late st Contact Info) Description 06/12/2021 Telephone [place] [address] Chelsie Lauren Social History Tobacco Use Types [...] on filedocumented in this encounter Care Teams Cafeteria Associate Relationship Specialty Start Date End Date Ana Her MD [address] [place] [address] PCP - General 07/29/13 documented as of this encounter
--- OUTSIDE RECORDS SUMMARY | 2023-12-02 14:03 | XMS_ITS | Encounter Summary ---
[place] [address] Care Team Providers Care Agricultural Scientist Name Role Phone Ana Her MD Primary Care Provider [phone] Encounter Details Date Type Department Care Team (Late st Contact Info) Description 03/18/2017 Telephone [place] [address] Bryanna Marsh RN Social History Tobacco Use [...] notes she had a colonoscopy done at [facility] and developed atrial fibrillation; she has been started on blood thinners. She was just discharged from the [facility] hospital, and called us to let us [...] give Digna a call her number is [phone]. The below is from Dr. Chen visit with Digna. Assessment and Plan: ?? 71 yo female with radiographic stage I ER/MA+, HER2- IDC of the left breast. No [...] on filedocumented in this encounter Care Teams Agricultural Scientist Relationship Specialty Start Date End Date Ana Her MD [address] [place] [address] PCP - General 07/29/13 documented as of this encounter
--- OUTSIDE RECORDS SUMMARY | 2023-12-02 14:03 | XMS_ITS | Encounter Summary ---
[place] [address] Care Team Providers Care Fuel Verification Technician Name Role Phone Ana Her MD Primary Care Provider [phone] Encounter Details Date Type Department Care Team (Late st Contact Info) Description 05/06/2017 Telephone Radiation Oncology at [address] [address] Maria A Antonio RN Social [...] on filedocumented in this encounter Care Teams Fuel Verification Technician Relationship Specialty Start Date End Date Ana Her MD [address] [facility] 1 [place] [address] PCP - General 07/29/13 documented as of this encounter
--- OUTSIDE RECORDS SUMMARY | 2023-12-02 14:03 | XMS_ITS | Encounter Summary ---
Author Organization [facility] [place] [address] Care Team Providers Care Sports Management Intern Name Role Phone Ana Her MD Primary Care Provider [phone] Encounter Details Date Type Department Care Team (Latest Contact Info) Description 03/30/2017 8:30 AM [facility] Hospital [place] [address] Malika Chen MD [facility] [place] [address] Malignant neoplasm of upper-outer quadrant of left [...] positive documented in this encounter Care Teams Sports Management Intern Relationship Specialty Start Date End Date Ana Her MD [address] [place] [address] PCP - General 07/29/13 documented as of this encounter
--- OUTSIDE RECORDS SUMMARY | 2023-12-02 14:03 | XMS_ITS | Encounter Summary ---
Author Organization [facility] [place] [address] Care Team Providers Care Supervisor Fiberglass Boat Assembly Name Role Phone Ana Her MD Primary Care Provider [phone] Reason for Visit * Reason Comments Follow-up Encounter Details Date Type Department Care Team (Late st Contact Info) Description 10/23/2017 11:00 AM EDT Office Visit [place] [address] Mayra Page APRN [facility] [place] [address] Malignant neoplasm of lower-outer quadrant of left [...] this encounter Progress Notes * Mayra Page, DESK MONITOR - 10/23/2017 11:00 AM EDT Digna Olson [...] ??Excision with image-guided localization ?Lymph Node Sampling: ??[place] lymph node(s) ?Specimen Laterality: ??Left Tumor ?Histologic [...] ??DCIS not present in specimen Lymph Nodes ?[place] Lymph Nodes: [place] lymph node biopsy performed ?Number of [place] Nodes Examined: ??3 ?Number of Lymph Node(s) Examined (sentinel and nonsentinel): 3 ?Lymph Node Involvement: None identified Stage (pTNM) ?Pathological Stage: ?? pT1b pN0 PMH: Past Medical History: Diagnosis Date ??? Breast cancer ??? Fracture of tibia 12/2016 left tibial plateau ??? GERD (gastroesophageal reflux disease) ??? H/O non-insulin dependent diabetes mellitus ??? Spinal stenosis Most recent DEXA scan was 10/28/16 at [facility]. There is no history [...] from today was benign. We will resume withyearly routine screening. All questions answered. We will see her back in 6 months. Mayra Page APRN documented in this encounter Plan of Treatment Not on file documented as of this encounter Visit Diagnoses Diagnosis 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, estrogen receptor positive documented in this encounter Care Teams Supervisor [employer]erglass Boat Assembly Relationship Specialty Start Date End Date Ana Her MD [address] [place] [address] PCP - General 07/29/13 documented as of this encounter
--- OUTSIDE RECORDS SUMMARY | 2023-12-02 14:03 | XMS_ITS | Encounter Summary ---
Author Organization [facility] [place] [address] Care Team Providers Care Tour Sales Representative Name Role Phone Ana Her MD Primary Care Provider [phone] Reason for Visit * Reason Comments Schedule Office Case Encounter Details Date Type Department Care Team (Late st Contact Info) Description 04/23/2017 2:00 PM EST Office Visit Hematology [place] [address] Ricky Lowry MD [facility] HEM[place] [address] Malignant neoplasm of lower-outer quadrant of left [...] cancer cells with immunostaining) Stain intensity: Strong MT immunoreactivity: Positive (>90% cancer cells with immunostaining) [...] ??Excision with image-guided localization ?Lymph Node Sampling: ??[place] lymph node(s) ?Specimen Laterality: ??Left Tumor ?Histologic [...] ??DCIS not present in specimen Lymph Nodes ?[place] Lymph Nodes: [place] lymph node biopsy performed ?Number of [place] Nodes Examined: ??3 ?Number of Lymph Node(s) [...] DEXA scan was in this year at [facility]. There is no history of [...] positive documented in this encounter Care Teams Tour Sales Representative Relationship Specialty Start Date End Date Ana Her MD [address] [place] [address] PCP - General 07/29/13 documented as of this encounter
--- OUTSIDE RECORDS SUMMARY | 2023-12-02 14:03 | XMS_ITS | Encounter Summary ---
Author Organization [facility] Address [facility] [place] [address] Care Team Providers Care Tourist Information Officer Name Role Phone Ana Her MD Primary Care Provider [phone] Encounter Details Date Type Department Care Team (Latest Contact Info) Description 10/28/2016 - 10/28/2016 11:59 PM EDT Hospital Encounter [place] [phone] Ricky Lowry MD [facility] HEMATOLOGY/[place] [address] Discharge Disposition: Home Social History Tobacco Use [...] DXA Images (10/28/2016 12:00 AM EDT) Narrative [facility] - 04/24/2017 2:13 PM EST This exam is for storage only and is auto-finalizing. Ricky Lowry MD IMG FILM LIBRARY ORD ERABLES [place], [place] documented in this encounter Visit Diagnoses Not on filedocumented in this encounter Care Teams Tourist Information Officer Relationship Specialty Start Date End Date Ana Her MD [address] [place] [address] PCP - General 07/29/13 documented as of this encounter
--- OUTSIDE RECORDS SUMMARY | 2023-12-02 14:03 | XMS_ITS | Encounter Summary ---
Author Organization [facility] Address [facility] [place] [address] Care Team Providers Care Parliamentary Librarian Name Role Phone Ana Her MD Primary Care Provider [phone] Encounter Details Date Type Department Care Team (Late st Contact Info) Description 09/13/2015 Interpretation Only Radiology [address] [facility] [place] [address] Unknown None Social History Tobacco Use Types [...] 6:56 AM EDT APD Historical Result Principal Commercial Appraiser: ??MAE ??ESCHBACH IMAGE-INTENSIFIER FILMS: INDICATION: ??Right L4 foraminotomy. FINDINGS: A total of 5.8 seconds of fluoro time was utilized by Geraldine Claros MD. ??Estimated dose is 5.96 mGy. ??Two image-intensifier films record the event. ??They show the lumbosacral junction in the lateral projection with a surgical instrument indicating the level of L4. ??No Radiologist was present for this exam. Mae Shelley DO TOBIN/mn [id number] Procedure Note Unknown - 11/01/2018 APD Historical Result Principal Commercial Appraiser: MAE SHELLEY IMAGE-INTENSIFIER FILMS: INDICATION: Right L4 foraminotomy. FINDINGS: A total of 5.8 seconds of fluoro time was utilized by Geraldine Claros MD. Estimated dose is 5.96 mGy. Two image-intensifier films record the event. They show thelumbosacral junction in the lateral projection with a surgical instrument indicating the level of L4.No Radiologist was present for this exam. Mae Shelley DO TOBIN/mn [id number] Unknown IMG FLUORO ORDERABLE S documented in this encounter Visit Diagnoses Not on filedocumented in this encounter Care Teams Parliamentary Librarian Relationship Specialty Start Date End Date Ana Her MD [address] [place] [address] PCP - General 07/29/13 documented as of this encounter
--- OUTSIDE RECORDS SUMMARY | 2023-12-02 14:03 | XMS_ITS | Encounter Summary ---
Author Organization [facility] [place] [address] Care Team Providers Care Blanket Binder Name Role Phone Ana Her MD Primary Care Provider [phone] Encounter Details Date Type Department Care Team (Latest Contact Info) Description 02/25/2017 2:59 PM EDT - 02/25/2017 11:59 PM EDT Hospital [place] [phone] Enzo Burkett MD [facility] [place] [address] Abnormal finding on breast imaging Discharge Disposition: [...] associated with invasive carcinoma. Enzo Burkett MD [facility] MAMMO ORDERABLES * Surgical Pathology Report (02/25/2017 3:01 PM EDT) FINAL DIAGNOSIS (AP) [id number] ? Location: 3L The signing pathologist has [...] FISH. ??Direct analysis was performed using the [employer] Sunner Development Kit. ??Slide adequacy and signal enumeration were [...] factor receptor 2 testing in breast cancer: [place] Society of Clinical Oncology/College of [place] Pathologists clinical practice guideline update. J Clin Oncol. 2013 Nov . Reviewed by: Kyara Logan MD Life Skills Coordinator, Molecular Pathology _ Electronically signed by: ??Epifanio Serra MD Verified: ??03/04/2017 ?Pathologist Performed at: ??-[facility] Dept. of Pathology, [place], [place] ? Addendum ADDENDUM DISCUSSION Immunohistochemist ry Studies Specimen: Left breast, core needle biopsy (A1) ER immunoreactivity: Positive ( ??>90% cancer cells with immunostaining) Stain intensity: Strong . ADDENDUM DISCUSSION [place] immunoreactivity: Positive ( ??>90% cancer cells with [...] The assays were performed according to the specialty development consultant ' s instructions using Anti-ER (SP1) and Anti-[place] (16) antibodies. Electronically signed by: ??Epifanio Serra MD Verified: ??02/27/2017 ?Pathologist Performed at: ??-[facility] Dept. of Pathology, [place], [place] ?Surgical Pathology DIAGNOSIS Needle biopsies: ?Left breast Diagnosis: ?Invasive mucinous carcinoma (see Discussion) ?Intermediate grade, modified SBR score = 6 Microcalcification s: ??Few calcifications associated with invasive carcinoma Electronically signed by: ??Epifanio Serra MD Verified: ??02/26/2017 ?Pathologist Performed at: ??-[facility] Dept. of Pathology, [place], [place] DISCUSSION Studies for ER, NY, and HER2 have been ordered; results will [...] Time: 4 minutes. Sections/Processin g: (T4) ??elian 03/04/2017 2:01 PM EDT [facility] BREAST STRUCTURE / Unknown 02/25/2017 3:01 PM EDT 02/25/2017 3:01 PM EDT Enzo Burkett MD PATHOLOGY/CYTOLOGY O RDERABLES [facility] [place] [address] documented in this encounter Visit Diagnoses Diagnosis Abnormal finding on breast imaging Other (abnormal) findings on radiological examination of breast documented in this encounter Care Teams Blanket Binder Relationship Specialty Start Date End Date Ana Her MD [address] [place] [address] PCP - General 07/29/13 documented as of this encounter
--- OUTSIDE RECORDS SUMMARY | 2023-12-02 14:03 | XMS_ITS | Encounter Summary ---
Author [place] [address] Care Team Providers Care Editorial Clerk Name Role Phone Ana Her MD Primary Care Provider [phone] Encounter Details Date Type Department Care Team (Late st Contact Info) Description 02/27/2017 Telephone Hematology [place] [phone] Argentina Sanchez RN Social History Tobacco Use [...] a 71 y.o. 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 Alma Delia sounds positive and has support. She will have someone accompany her to appointments. She appears to be coping well but is anxious to meet with a breast surgeon to determine a treatment plan. Alma Delia have a bone SPECT done 1-2 months ago at [facility] and her doctor there questioned [...] for her review (a link to the [facility] Early Stage Breast Cancer program). The Breast [...] on filedocumented in this encounter Care Teams Editorial Clerk Relationship Specialty Start Date End Date Ana Her MD [address] [place] [address] PCP - General 07/29/13 documented as of this encounter
--- OUTSIDE RECORDS SUMMARY | 2023-12-02 14:03 | XMS_ITS | Encounter Summary ---
Author Organization [facility] [place] [address] Care Team Providers Care Sedimentationist Name Role Phone Ana Her MD Primary Care Provider [phone] Encounter Details Date Type Department Care Team (Late st Contact Info) Description 03/19/2017 Telephone [place] [address] Malika Chen MD [facility] [place] [address] Social History Tobacco Use Types Packs/Day Years [...] no unexpected bleeding. Surgery is scheduled in [facility]. documented in this encounter Plan of Treatment Not on file documented as of this encounter Visit Diagnoses Not on filedocumented in this encounter Care Teams Sedimentationist Relationship Specialty Start Date End Date Ana Her MD [address] [facility] [address] [place] [address] PCP - General 07/29/13 documented as of this encounter
--- OUTSIDE RECORDS SUMMARY | 2023-12-02 14:03 | XMS_ITS | Encounter Summary ---
Author Organization [facility] [place] [address] Care Team Providers Care 2Nd Pressman Name Role Phone Ana Her MD Primary Care Provider [phone] Encounter Details Date Type Department Care Team (Late st Contact Info) Description 02/27/2017 Orders Only [place] [address] Malika Chen MD [facility] [place] [address] Malignant neoplasm of left breast in female, [...] Glucose Lvl 139 65 - 199 mg/dL [facility] Comment:Diabetes: >=200 mg/d L plus symptoms BUN 20(H) 8 - 18 mg/dL [facility] Creatinine 0.95 0.70 - 1.20 mg/dL [facility] Sodium 141 135 - 145 mmol/L [facility] Potassium 4.8 3.5 - 5.0 mmol/L [facility] Comment: Please note: ??Patients with WBC >100,000 may have falsely elevated Potassium levels. ??For accurate Potassium quantification in these patients send serum separator tube (gold top) for subsequent determinations. ??Contact the Clinical Chemistry Laboratory if there are any questions. Chloride 101 98 - 107 mmol/L [facility] CO2 26 22 - 31 mmol/L [facility] Anion Gap 14 5 - 15 mmol/L [facility] Calcium 9.3 8.5 - 10.5 mg/dL [facility] Total Protein 6.9 6.1 - 8.0 gm/dL [facility] Albumin 4.2 3.2 - 5.2 gm/dL [facility] AST 17 0 - 30 unit/L [facility] ALT 16 0 - 30 unit/L [facility] Alk Phos 75 40 - 104 unit/L [facility] Total Bilirubin 0.5 0.2 - 1.3 mg/dL [facility] Estimated GFR 58(L) >=60 [facility] Comment: The reported eGFR should be multiplied by 1.2 for patients. The MDRD is not an appropriate measure of renal function for patients with body mass extremes or in patients with acute kidney failure. http://LaunchBit.Exaprotect/DHnkdep http://LaunchBit.Exaprotect/DHMCnkf Blood specimen (specimen) 03/03/2017 7:50 AM EDT 03/03/2017 8:03 AM EDT Narrative Resulting Agency Comment Spec In Lab Malika Chen MD CHEMISTRY ORDERABLE S [facility] [place] [address] documented in this encounter Visit Diagnoses Diagnosis Malignant neoplasm of left breast in female, estrogen receptor positive, unspecified site of breast documented in this encounter Care Teams 2Nd Pressman Relationship Specialty Start Date End Date Taina, Ana C, MD [address] [place] [address] PCP - General 07/29/13 documented as of this encounter
--- OUTSIDE RECORDS SUMMARY | 2023-12-02 14:03 | XMS_ITS | Encounter Summary ---
[place] [address] Care Team Providers Care Watch Technician Name Role Phone Ana Her MD Primary Care Provider Encounter Details Date Type Department Care Team (Latest Contact Info) Description 03/03/2017 7:55 AM EDT Laboratory Appointment Lab [address] [place] [address] Malignant neoplasm of left breast in female, [...] 7:50 AM EDT) Neutrophils % 72.8 % [facility] Neutr Abs (ANC) 6.45(H) 1.70 - 6.10 x10(3)/[facility] LABORATORY Lymphocytes % 14.4 % [facility] Lymphocytes Abs 1.3 0.9 - 3.2 x10(3)/[facility] LABORATORY Monocytes % 5.6 % [facility] Monocyte Abs 0.5 0.3 - 0.9 x10(3)/[facility] LABORATORY Eosinophils % 6.1 % [facility] Eosinophils Abs 0.5(H) 0.0 - 0.4 x10(3)/[facility] LABORATORY Basophils % 0.6 % [facility] Basophils Abs 0.0 0.0 - 0.1 x10(3)/[facility] LABORATORY Immature Gran % 0.50 % [facility] Comment: Immature granulocytes(IG's)percentage and absolute count will include metamyelocytes, myelocytes, and promyelocytes. Blood smears from CBCs yielding IG's will be scanned manually for concordance. If this scan disagrees with the automated IG or if promyelocytes are noted, a manual differential will be performed. Elenita Gran Abs 0.04 0.00 - 0.04 x10(3)/ L [facility] Blood specimen (specimen) 03/03/2017 7:50 AM EDT 03/03/2017 8:03 AM EDT Narrative Resulting Agency Comment Spec In Lab Malika Chen MD HEMATOLOGY ORDERABL ES [facility] [place] [address] * (ABNORMAL) Hemogram (03/03/2017 7:50 AM EDT) WBC 8.8 4.0 - 9.5 x10(3)/[facility]OR[facility] RBC 3.80(L) 4.00 - 5.21 x10(6)/[facility] Hemoglobin 12.3 11.7 - 15.5 gm/dL [facility] Hematocrit 36.3 35.7 - 45.8 % [facility] MCV 95.5(H) 82.6 - 94.4 fL [facility] MCH 32.4(H) 27.1 - 32.0 pg [facility] MCHC 33.9 31.7 - 35.0 gm/dL [facility] Platelets 156 145 - 357 x10(3)/[facility] LABORATORY RDWSD 48.3(H) 37.0 - 46.0 [facility] LABORATORY RDWCV 13.9 11.5 - 14.1 % [facility] MPV 11.9 7.6 - 12.9 [facility]ORATORY nRBC % Auto 0.0 % [facility] nRBC Abs Auto 0.000 0.000 - 0.000 x10(3)/[facility] Blood specimen (specimen) 03/03/2017 7:50 AM EDT 03/03/2017 8:03 AM EDT Narrative Resulting Agency Comment Spec In Lab Malika Chen MD HEMATOLOGY ORDERABL ES [facility] [place] [address] * (ABNORMAL) Comprehensive metabolic panel (non-fasting) (03/03/2017 [...] [facility] Estimated GFR 58(L) >=60 [facility] Comment: The reported eGFR should be multiplied by 1.2 for patients. The MDRD is not an appropriate measure of renal function for patients with body mass extremes or in patients with acute kidney failure. http://AMENDIA.Amicrobe/DHnkdep http://AMENDIA.Amicrobe/DHMCnkf Blood specimen (specimen) 03/03/2017 7:50 AM EDT 03/03/2017 8:03 AM EDT Narrative Resulting Agency Comment Spec In Lab Malika Chen MD CHEMISTRY ORDERABLE S [facility] [place] [address] documented in this encounter Visit Diagnoses Diagnosis Malignant neoplasm of left breast in female, estrogen receptor positive, unspecified site of breast documented in this encounter Care Teams Watch Technician Relationship Specialty Start Date End Date Ana Her MD [address] [facility] [place] [address] PCP - General 07/29/13 documented as of this encounter
--- OUTSIDE RECORDS SUMMARY | 2023-12-02 14:03 | XMS_ITS | Encounter Summary ---
[place] [address] Care Team Providers Care Supervisor Inspection And Testing Name Role Phone Ana Her MD Primary Care Provider [phone] Encounter Details Date Type Department Care Team (Late st Contact Info) Description 04/05/2018 Telephone [place] [phone] Adrianna Jones Social History Tobacco Use Types [...] [place]. Patient advises she is admitted at [facility] for afib and is pending procedure etc. Patient will call to reschedule once she is discharged home. documented in this encounter Plan of Treatment Not on file documented as of this encounter Visit Diagnoses Not on filedocumented in this encounter Care Teams Supervisor Inspection And Testing Relationship Specialty Start Date End Date Ana Her MD [address] [place] [address] PCP - General 07/29/13 documented as of this encounter
--- OUTSIDE RECORDS SUMMARY | 2023-12-02 14:03 | XMS_ITS | Encounter Summary ---
Author Organization [facility] [place] [address] Care Team Providers Care Pin Ball Machine Mechanic Name Role Phone Ana Her MD Primary Care Provider [phone] Encounter Details Date Type Department Care Team (Late st Contact Info) Description 03/03/2017 Notes [place] [address] January Ward MSW Social History Tobacco Use Types Packs/Day Years Used Date Smoking Tobacco: Never Smokeless Tobacco: Never Sex and Gender Information Value Date Recorded Sex Assigned at Not on file Gender Identity Not on file Sexual Orientation Not on file documented as of this encounter Progress Notes * January Ward MSW - 03/03/2017 12:56 PM EDT OFFICE OF CARE MANAGEMENT/CONTINUING CASINO BANKER Reason for referral: Digna Olson is a 71 year old, female who was seen in the multidisciplinarybreast care clinic for a surgical consult as she was recently diagnosed with ER/DE+, left breast, invasive mucinous carcinoma. After meeting with Dr. Chen, pt has decided to have a lumpectomy/SLNB. If pt needs radiation therapy, she will receive it at the [facility]. [facility] met with pt to complete a psychosocial assessment and to explain my role in the breast program. Pt was encouraged to contact me if she has any questions or concerns. Living arrangements/social supports: Pt lives alone in [place], [place]. She has support from her family and is accompanied to today's appt by her sisters who live in [place]. Employment/Insurance/Finances: Pt is retired and receives Social Security F[employer] Benefits. Pt has Medicare A and B [...] Antonia Oliva is the SW for the [facility]. Plan: [facility] will continue to follow pt to assess and assist with their psychosocial needs. DELONTE Moreno [facility]/[place] [phone] Pager #[phone] documented in this encounter Plan of Treatment Not on file documented as of this encounter Visit Diagnoses Not on filedocumented in this encounter Care Teams Pin Ball Machine Mechanic Relationship Specialty Start Date End Date Ana Her MD [address] [place] [address] PCP - General 07/29/13 documented as of this encounter
--- OUTSIDE RECORDS SUMMARY | 2023-12-02 14:03 | XMS_ITS | Encounter Summary ---
Author Organization [facility] [place] [address] Care Team Providers Care Sports Marketing Internship Name Role Phone Ana Her MD Primary Care Provider [phone] Encounter Details Date Type Department Care Team (Latest Contact Info) Description 02/23/2017 3:50 PM EDT - 02/23/2017 11:59 PM EDT Hospital Encounter [place] [phone] Jackie Cisneros APRN [address] [place] [address] Left breast mass Discharge Disposition: Home Social [...] recommended. Please note: The interpretation of the [facility] Breast Imaging Radiologist subspecialist may differ from the original radiologists interpretation. This is usually not due to a deficiency of the original interpreting radiologist, rather due to the greater skill level afforded by sub-specialization in the field and/or reasonable variations in interpretations. If you have a concern regarding the D-H interpretation you may contact the [facility] Breast Websphere Process Server Developer Office at . I have personally reviewed [...] the care of this patient. STUDIES FROM: [facility] DATES: Screening mammogram 02/12/2017, diagnostic mammogram [...] to consult on this patient by Dr. Cisnerso becausehe/she believes a review of this study may change or alter the care of thispatient. STUDIES FROM: [facility] DATES: Screening mammogram 02/12/2017, diagnostic mammogram [...] recommended. Please note: The interpretation of the [facility] BreastImaging Radiologist subspecialist may differ from the original radiologists interpretation. This is usually not due to a deficiency of the original interpreting radiologist, rather due to the greater skill level affordedby sub-specialization in the field and/or reasonable variations ininterpretations. If you have a concern regarding the D-H interpretation [facility] may [facility] Process Server Developer [facility] at . I have personally reviewed the image(s) and the residents interpretationand agree with the findings, ROBERT THOMPSON at 02/24/2017 8:41 AM 8:41 AM Jackie Cisneros TACTICAL INTELLIGENCE OFFICER IMG OUTSIDE INTERPRE TATION ORDERABLES documented in this encounter Visit Diagnoses Diagnosis Left breast mass Lump or mass in breast documented in this encounter Care Teams Sports Marketing Internship Relationship Specialty Start Date End Date Ana Her MD [address] [place] [address] PCP - General 07/29/13 documented as of this encounter
--- OUTSIDE RECORDS SUMMARY | 2023-12-02 14:03 | XMS_ITS | Encounter Summary ---
Author Organization [place] [address] Care Team Providers Care Customer Support Coordinator Name Role Phone Ana Her MD Primary Care Provider [phone] Encounter Details Date Type Department Care Team (Latest Contact Info) Description 02/17/2017 12:15 AM EDT - 02/17/2017 11:59 PM EDT Hospital Encounter [place] [address] Maryam Yee MD [facility] [place] [address] Screening breast examination Discharge Disposition: Home Social [...] Only Mammo (02/17/2017 12:15 AM EDT) Narrative [facility] - 02/19/2017 2:01 PM EDT This exam is for storage only and is auto-finalizing. Maryam Yee MD IMG FILM LIBRARY O RDERABLES [place], [place] documented in this encounter Visit Diagnoses Diagnosis Screening breast examination (Not by Mammogram) Other screening breast examination documented in this encounter Care Teams Customer Support Coordinator Relationship Specialty Start Date End Date Ana Her MD [address] [place] [address] PCP - General 07/29/13 documented as of this encounter
--- OUTSIDE RECORDS SUMMARY | 2023-12-02 14:03 | XMS_ITS | Encounter Summary ---
Author Organization [facility] Address [facility] [place] [address] Care Team Providers Care Student Affairs Dean Name Role Phone Ana Her MD Primary Care Provider [phone] Reason for Visit * Reason Comments Radiation Consult * Consultation (Routine) - Closed Specialty Diagnoses / Procedures Referred By Christiano hackett Referred To Contact Radiation Oncology Diagnoses Breast cancer Malika Chen MD [facility] [place] [address] Stj Rad Onc Office [address] [place] [phone] Referral ID Status Reason Start Date Expiration Date Visits Re quested Visits Authorized [id number] Closed 03/17/2017 03/17/2018 1 1 Encounter Details Date Type Department Care Team (Late st Contact Info) Description 04/13/2017 10:00 AM EST Office Visit Radiation Oncology at [address] [address] Faye Velez MD [facility] [place] [address] Malignant neoplasm of left female breast, unspecified [...] cm from nipple. Path: Invasive mucinous ca, ER+WY+, Her2 FISH neg. 03/03/[address] Chne showing no breast mass/adenopathy. 03/30/17 US guided [...] she is being evaluated for afib @ [facility] 04/15/17; has been wearing a ziopatch [...] [facility] ??? PRO MASTECTOMY, PARTIAL Left 03/30/2017 MASTECTOMY PARTIAL (WRVU 10.13) performed by Malika Chen MD at [facility] MA[facility] Your Medications These changes are [...] A: Breast ca, L, mucinous, gr 2, ER+WY+, Her2 neg, s/p lumpectomy & SNB, pT1b [...] treated breast; cough; shortness of breath; tiredness. Late/roasterman side effects to breast discussed include: Treated [...] breast documented in this encounter Care Teams Student Affairs Dean Relationship Specialty Start Date End Date Ana Her MD [address] [place] [address] PCP - General 07/29/13 documented as of this encounter
--- OUTSIDE RECORDS SUMMARY | 2023-12-02 14:03 | XMS_ITS | Encounter Summary ---
[place] [address] Care Team Providers Care Waxer Name Role Phone Ana Her MD Primary Care Provider [phone] 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 * Surgical (Routine) - Closed Specialty Diagnoses / Procedures Referred By Christiano hackett Referred To Contact Orthopaedics Diagnoses Lumbar spinal stenosis Michelle Hurtado APRN [facility] [place] [address] [facility] [place] [address] [place] [address] Referral ID Status Reason Start Date Expiration Date V isits Requested Visits Authorized [id number] Closed Consult, Test & Treat 09/08/2014 09/08/2015 3 3 Encounter Details Date Type Department Care Team (Late st Contact Info) Description 09/08/2014 Orders [place] [address] Michelle Hurtado WELFARE VISITOR [facility] [place] [address] Lumbar spinal stenosis Social History Tobacco Use [...] claudication documented in this encounter Care Teams Waxer Relationship Specialty Start Date End Date Ana Her MD [facility] [address] [facility] [address] [place] [address] PCP - General 07/29/13 documented as of this encounter
--- OUTSIDE RECORDS SUMMARY | 2023-12-02 14:03 | XMS_ITS | Encounter Summary ---
Author Organization [facility] [address] Care Team Providers Care Medical Insurance Claims Specialist Name Role Phone Ana Her MD Primary Care Provider [phone] Encounter Details Date Type Department Care Team (Latest Contact Info) Description 02/17/2017 - 02/17/2017 12:14 AM EDT Hospital Encounter [place] [phone] Maryam Yee MD [facility] [place] [address] Screening breast examination Discharge Disposition: Home Social [...] Only Mammo (02/17/2017 12:00 AM EDT) Narrative [facility] - 02/19/2017 1:59 PM EDT This exam is for storage only and is auto-finalizing. Maryam Yee MD IMG FILM LIBRARY O RDERABLES [place], [place] documented in this encounter Visit Diagnoses Diagnosis Screening breast examination (Not by Mammogram) Other screening breast examination documented in this encounter Care Teams Medical Insurance Claims Specialist Relationship Specialty Start Date End Date Ana Her MD [address] [place] [address] PCP - General 07/29/13 documented as of this encounter
--- OUTSIDE RECORDS SUMMARY | 2023-12-02 14:03 | XMS_ITS | Encounter Summary ---
Author Organization [facility] [place] [address] Care Team Providers Care Residential Property Consultant Name Role Phone Ana Her MD Primary Care Provider [phone] Encounter Details Date Type Department Care Team (Latest Contact Info) Description 03/30/2017 8:[address] [facility] Hospital [place] [address] Malika Chen MD [facility] [place] [address] Malignant neoplasm of upper-outer quadrant of left [...] documented in this encounter Results * Mammo [place]inton Node Injection (03/30/2017 9:01 AM EST) Anatomical [...] mCi documented in this encounter Care Teams Residential Property Consultant Relationship Specialty Start Date End Date Ana Her MD [address] [place] [address] PCP - General 07/29/13 documented as of this encounter
--- OUTSIDE RECORDS SUMMARY | 2023-12-02 14:03 | XMS_ITS | Encounter Summary ---
Author Organization [facility] [place] [address] Care Team Providers Care Rn Intake Name Role Phone Ana Her MD Primary Care Provider [phone] Encounter Details Date Type Department Care Team (Latest Contact Info) Description 02/25/2017 1:36 PM EDT - 02/25/2017 2:58 PM EDT Hospital En[place] [phone] Maryam Yee MD [facility] [place] [address] Abnormal mammogram Discharge Disposition: Home Social History [...] unspecified documented in this encounter Care Teams Rn Intake Relationship Specialty Start Date End Date Ana Her MD [address] [place] [address] [address] [place] [address] PCP - General 07/29/13 documented as of this encounter
--- OUTSIDE RECORDS SUMMARY | 2023-12-02 14:03 | XMS_ITS | Encounter Summary ---
[place] [address] Care Team Providers Care Banking And Finance Instructor Name Role Phone Ana Her MD Primary Care Provider [phone] Encounter Details Date Type Department Care Team (Late st Contact Info) Description 03/30/2017 11:19 AM EST Anesthesia Event [place] [address] Bridgette Mclaughlin MD [facility] [place] [address] Laura Koo, SCALE MANAGER [address] [place] [address] Anesthesia Record Procedure Summary Procedure Name Responsible [...] 0815; median cubital vein (antecubital fossa), right; axep-dne-cobnfj catheter system; 20 gauge, 1 in length; [...] Bridgette Mclaughlin - 03/30/2017 2:13 PM EST [facility] Department of Anesthesiology Post-procedure Note Patient: Digna Olson Procedure Summary Date Anesthesia Start Anesthesia Stop Room / Location 03/30/17 1119 1239 [facility] OR 24 / [facility] MAIN OR Procedure Diagnosis Surgeon Responsible Provider [...] All Anesthesia Providers: Anesthesiologist: Bridgette Mclaughlin MD SCALE MANAGER: Laura Koo CRNA Most Recent Vitals: 03/30/17 [...] risks discussed with patient. Plan discussed with SCALE MANAGER. PAT Staff Note documented in this encounter [...] r documented in this encounter Care Teams Banking And Finance Instructor Relationship Specialty Start Date End Date Ana Her MD [address] [place] [address] PCP - General 07/29/13 documented as of this encounter
--- OUTSIDE RECORDS SUMMARY | 2023-12-02 14:03 | XMS_ITS | Encounter Summary ---
Author Organization [facility] [place] [address] Care Team Providers Care Shop Assistant Name Role Phone Ana Her MD Primary Care Provider [phone] Encounter Details Date Type Department Care Team (Latest Contact Info) Description 02/12/2017 - 02/12/2017 11:59 PM EDT Hospital Encounter [place] [phone] Maryam Yee MD [facility] [place] [address] Screening breast examination Discharge Disposition: Home Social [...] Only Mammo (02/12/2017 12:00 AM EDT) Narrative [facility] - 02/19/2017 1:47 PM EDT This exam is for storage only and is auto-finalizing. Maryam Yee MD IMG FILM LIBRARY O RDERABLES [place], [place] documented in this encounter Visit Diagnoses Diagnosis Screening breast examination (Not by Mammogram) Other screening breast examination documented in this encounter Care Teams Shop Assistant Relationship Specialty Start Date End Date Ana Her MD [address] [place] [address] PCP - General 07/29/13 documented as of this encounter
--- OUTSIDE RECORDS SUMMARY | 2023-12-02 14:03 | XMS_ITS | Encounter Summary ---
Author Organization [facility] [place] [address] Care Team Providers Care Chalk Cutter Name Role Phone Ana Her MD Primary Care Provider [phone] Encounter Details Date Type Department Care Team (Late st Contact Info) Description 03/30/2017 Notes [place] [address] January Ward MSW Social History Tobacco Use [...] was recently diagnosed with invasive mucinous carcinoma. [facility] attempted to meet with pt in Same Day surgery this morning but she was still in radiology. I spoke with her ex-, Keith, who states she will be staying with him tondenise. Their granddaughters are traveling from [place] and plan to accompany pt to see her radiator cleaner at [facility] tomorrow. Pt has been followed by this physician for her cardiac problems. [facility] will continue to provide support and resources to pt. documented in this encounter Plan of Treatment Not on file documented as of this encounter Visit Diagnoses Not on filedocumented in this encounter Care Teams Chalk Cutter Relationship Specialty Start Date End Date Ana Her MD [address] [facility] 1 [place] [address] PCP - General 07/29/13 documented as of this encounter
--- OUTSIDE RECORDS SUMMARY | 2023-12-02 14:03 | XMS_ITS | Encounter Summary ---
[place] [address] Care Team Providers Care Power Shear Operator Name Role Phone Ana Her MD Primary Care Provider [phone] Reason for Visit * Reason Comments Follow Up Surgery Encounter Details Date Type Department Care Team (Late st Contact Info) Description 07/13/2017 1:30 PM EDT Office Visit [place] [address] Hiral Padgett APRN [facility] [place] [address] History of breast cancer Social History Tobacco [...] with image-guided localization ?Lymph Node Sampling: ?? Kersey lymph node(s) ?Specimen Laterality: ?? Left Tumor [...] ?DCIS not present in specimen Lymph Nodes ?Kersey Lymph Nodes: ?? Kersey lymph node biopsy performed ?Number of Kersey Nodes Examined: ?3 ?Number of Lymph Node(s) [...] breast documented in this encounter Care Teams Power Shear Operator Relationship Specialty Start Date End Date Ana Her MD [address] [place] [address] PCP - General 07/29/13 documented as of this encounter
--- OUTSIDE RECORDS SUMMARY | 2023-12-02 14:03 | XMS_ITS | Encounter Summary ---
Author Organization [facility] [place] [address] Care Team Providers Care Carton Repairer Name Role Phone Ana Her MD Primary Care Provider [phone] Encounter Details Date Type Department Care Team (Late st Contact Info) Description 03/04/2017 Orders [place] [address] Malika Chen MD [facility] [place] [address] Malignant neoplasm of upper-outer quadrant of left [...] MD IMG MAMMO ORDERABLE S * Mammo [place]on[place] Node Injection (03/30/2017 9:01 AM EST) Anatomical [...] images/test and approve the above interpretation. Malika ALLISONG MAMMO ORDERABLE S * Mammo Us Guidance [...] positive documented in this encounter Care Teams Carton Repairer Relationship Specialty Start Date End Date Ana Her MD [address] [facility] 1 [place] [address] PCP - General 07/29/13 documented as of this encounter
--- OUTSIDE RECORDS SUMMARY | 2023-12-02 14:03 | XMS_ITS | Encounter Summary ---
[place] [address] Care Team Providers Care Automobile Mechanic Radiator Name Role Phone Ana Her MD Primary Care Provider [phone] Encounter Details Date Type Department Care Team (Late st Contact Info) Description 04/09/2017 Abstract Radiation Oncology at [address] [phone] Maria A Antonio, RN Social History Tobacco [...] on filedocumented in this encounter Care Teams Automobile Mechanic Radiator Relationship Specialty Start Date End Date Ana Her MD [address] [place] [address] PCP - General 07/29/13 documented as of this encounter
--- OUTSIDE RECORDS SUMMARY | 2023-12-02 14:03 | XMS_ITS | Encounter Summary ---
Author Organization [facility] [place] [address] Care Team Providers Care Senior Developer Name Role Phone Ana Her MD Primary Care Provider Encounter Details Date Type Department Care Team (Latest Contact Info) Description 02/25/2017 1:32 PM EDT - 02/25/2017 1:35 PM EDT Hospital Encounter [place] [phone] Maryam Yee MD [facility] [place] [address] Abnormal mammogram Discharge Disposition: Home Social History [...] PM EDT 02/25/2017 3:02 PM EDT Narrative [facility] - 02/25/2017 3:02 PM EDT Specimen requisition ordered. ??Separate Pathology report to follow Enzo Burkett MD PATHOLOGY/CYTOLOGY O [facility] [place] [address] documented in this encounter Visit Diagnoses Diagnosis [...] mg documented in this encounter Care Teams Senior Developer Relationship Specialty Start Date End Date Ana Her MD [address] [place] [address] PCP - General 07/29/13 documented as of this encounter
--- OUTSIDE RECORDS SUMMARY | 2023-12-02 14:03 | XMS_ITS | Encounter Summary ---
Author Organization [facility] [place] [address] Care Team Providers Care Docking Saw Operator Name Role Phone Ana Her MD Primary Care Provider [phone] Encounter Details Date Type Department Care Team (Late st Contact Info) Description 05/10/2018 1:10 PM EST - 05/10/2018 11:59 PM [facility] Hospital Encounter Mammography/[place] [phone] Hiral Padgett APRN [facility] [place] [address] Encounter for screening mammogram for breast cancer [...] cancer documented in this encounter Care Teams Docking Saw Operator Relationship Specialty Start Date End Date Ana Her MD [address] [place] [address] PCP - General 07/29/13 documented as of this encounter
--- OUTSIDE RECORDS SUMMARY | 2023-12-02 14:03 | XMS_ITS | Encounter Summary ---
[place] [address] Care Team Providers Care Footwear Sales Coordinator Name Role Phone Ana Her MD Primary Care Provider Encounter Details Date Type Department Care Team (Latest Contact Info) Description 03/30/2017 7:27 AM EST - 03/30/2017 1:37 PM EST Hospital Encounter [place] [id number] Brant Chen MD [facility] [place] [address] Discharge Disposition: Home Social History Tobacco Use [...] shower 24 hours Activity as tolerated Call [phone] with any questions Do not soak incision [...] was obtained which revealed IDC which is ER/[place]+, her2-. She has no known breast masses, no adenopathy, no nipple discharge. ?? Alma Delia had a bone scan in [place] which was read as possible metastasis in the left tibia. Of note- she fractured this area recently. She has recovered well. ?? PMH HNT NIDDM not on meds Spinal stenosis Fractured left tibial plateau December, GERD ?? FH: Maternal first cousin with breast cancer Brother with rectal cancer Sister with PE ? SH: lives alone. Has good support from sisters who live in [place]. Non smoker. Has a son who lives [...] 71 yo female with radiographic stage I ER/WV+, HER2- IDC of the left breast. No [...] Chen MD - 03/30/2017 12:[address] [facility] Operative Note Patient Name: Digna Olson : [id number] MR#: [id number] Case Date: 03/30/2017 Surgeon: Surgeon(s) and Role: [...] [place] [address]. Remaining count within the axilla was 1982. [...] PM EST 03/30/2017 12:[address] [facility] - 03/30/2017 12:09 PM EST Specimen requisition ordered. ??Separate Pathology report to follow Brant Chen MD PATHOLOGY/CYTOLOGY ORDERABLES [facility] [place] [address] * Specimen to Pathology (surgical or derm) (03/30/2017 12:08 PM EST) AP Specimen 03/30/2017 12:0 8 PM EST 03/30/2017 12:[address] [facility] - 03/30/2017 12:08 PM EST Specimen requisition ordered. ??Separate Pathology report to follow Brant Chen MD PATHOLOGY/CYTOLOGY ORDERABLES Performing Organization Address [facility] [place] [address] * Specimen to Pathology (surgical or derm) (03/30/2017 12:00 PM EST) AP Specimen 03/30/2017 12:0 0 PM EST 03/30/2017 12:[address] [facility] - 03/30/2017 12:00 PM EST Specimen requisition ordered. ??Separate Pathology report to follow Brant Chen MD PATHOLOGY/CYTOLOGY ORDERABLES Performing Organization Address [facility] Co de Phone Number [place] [phone] * Specimen to Pathology (surgical or derm) (03/30/2017 11:51 AM EST) AP Specimen 03/30/2017 11:5 1 AM EST 03/30/2017 11:[address] [facility] - 03/30/2017 11:51 AM EST Specimen requisition ordered. ??Separate Pathology report to follow Brant Chen MD PATHOLOGY/CYTOLOGY ORDERABLES Performing Organization Address [facility] [place] [address] * Surgical Pathology Report (03/30/2017 11:50 AM EST) FINAL DIAGNOSIS (AP) [id number] ? Location: [facility]; A The signing pathologist has (i) examined the relevant preparation(s) for the specimen(s) and (ii) rendered or confirmed the diagnosis(es). . ?Surgical Pathology DIAGNOSIS A,B - See Synoptic C - Left breast, Deep/lateral margin re-excision - ?Benign fatty breast tissue. D - Left breast, Superficial margin re-excision - ?Benign fatty breast tissue. See Note Note - [place] ink (indicating additional cranial margin) is also present on this superficial margin re-excision. ---- Specimen Parts: ?? A - Left axilliary sentinel node B - Left breast partial mastectomy Specimen ? Procedure: ??Excision with image-guided localization ? Lymph Node Sampling: ?? [place] lymph node(s) ? Specimen Laterality: ?? Left [...] not present in specimen Lymph Nodes ? [place] Lymph Nodes: ?? [place] lymph node biopsy performed ? Number of [place] Nodes Examined: ?3 ? Number of Lymph [...] Chávez DO Verified: ??04/01/2017 ?Pathologist Performed at: ??-[facility] Dept. of Pathology, [place], [place] CLINICAL INFORMATION Specimen Submitted: A - [...] and there are ??no close margins. per [facility] Radiology . Specimen Description: According to [...] 0.8 x 0.4 x 0.4 cm. Color: [place] and yellow. Consistency: Soft. Location: Slices III and IV. Nearest Margin: 0.6 cm to the cranial margin. Other Margins: 0.8 cm to the deep margin, 1.0 cm to the superficial margin, ? > 2 cm from all other margins. OTHER Parenchyma: Predominately fatty with scant fibrous tissue. Wire/Clip: Biopsy marker clip identified within slice IV. SECTIONS/PROCESSI NG: (1) communications representative slice I, lateral margin; (2) slice III, lesion to cranial margin; (3-5) remainder of slice III; (6) slice IV, lesion to cranial margin (clip); (7-8) remainder of slice IV; (9) communications representative slice V; (10) communications representative slice X, medial margin. (R10) Ischemic [...] aspect. Sections/Processi ng: Serially sectioned. (T3) ??sns 04/01/2017 9:[address] [facility] BREAST STRUCTURE / Unknown 03/30/2017 11:50 AM EST 03/30/2017 11:50 AM EST BREAST STRUCTURE / Unknown 03/30/2017 11:50 AM EST 03/30/2017 11:50 AM EST BREAST STRUCTURE / Unknown 03/30/2017 11:50 AM EST 03/30/2017 11:50 AM EST BREAST STRUCTURE / Unknown 03/30/2017 11:50 AM EST 03/30/2017 11:50 AM EST Brant Chen MD PATHOLOGY/CYTOLOGY ORDERABLES [facility] [place] [address] * Mammo Direct Digital Left (03/30/2017 9:15 [...] images/test and approve the above interpretation. Robert Thompson MD IMG MAMMO ORDERABL ES documented in [...] Routine documented in this encounter Care Teams Footwear Sales Coordinator Relationship Specialty Start Date End Date Ana Her MD [facility] [address] [place] [address] PCP - General 07/29/13 documented as of this encounter
--- OUTSIDE RECORDS SUMMARY | 2023-12-02 14:03 | XMS_ITS | Encounter Summary ---
Author Organization [facility] [place] [address] Care Team Providers Care Painting Supervisor Name Role Phone Ana Her MD Primary Care Provider [phone] Encounter Details Date Type Department Care Team (Late st Contact Info) Description 10/23/2017 9:43 AM EDT - 10/23/2017 11:59 PM EDT Hospital En[place] [phone] Hiral Padgett APRN [facility] [place] [address] History of breast cancer Discharge Disposition: Home [...] documented in this encounter Care Teams Painting Supervisor Relationship Specialty Start Date End Date Ana Her MD [facility] [address] [place] [address] PCP - General 07/29/13 documented as of this encounter
--- OUTSIDE RECORDS SUMMARY | 2023-12-02 14:03 | XMS_ITS | Encounter Summary ---
Author Organization [facility] [place] [address] Care Team Providers Care Senior Clinical Data Manager Name Role Phone Ana Her MD Primary Care Provider [phone] Encounter Details Date Type Department Care Team (Late st Contact Info) Description 03/30/2017 9:30 AM EST - 03/30/2017 11:28 AM EST [place] [phone] Brant Chen MD [facility] [place] [address] MASTECTOMY PARTIAL (WRVU 10.13) Social History Tobacco [...] shower 24 hours Activity as tolerated Call [phone] with any questions Do not soak incision [...] was obtained which revealed IDC which is ER/CT+, her2-. She has no known breast masses, no adenopathy, no nipple discharge. ?? Alma Delia had a bone scan in [place] which was read as possible metastasis in the left tibia. Of note- she fractured this area recently. She has recovered well. ?? PMH HNT NIDDM not on meds Spinal stenosis Fractured left tibial plateau [place], 2017 GERD ?? FH: Maternal first cousin with breast cancer Brother with rectal cancer Sister with PE ? SH: lives alone. Has good support from sisters who live in [place]. Non smoker. Has a son who lives [...] 71 yo female with radiographic stage I ER/CT+, HER2- IDC of the left breast. No [...] Chen MD - 03/30/2017 12:27 PM EST [facility] Operative Note Patient Name: Digna Olson : [id number] MR#: [id number] Case Date: 03/30/2017 Surgeon: Surgeon(s) and Role: [...] [place] [address]. Remaining count within the axilla was 1982. [...] PM EST 03/30/2017 12:09 PM EST Narrative [facility] - 03/30/2017 12:09 PM EST Specimen requisition ordered. ??Separate Pathology report to follow Brant Chen MD PATHOLOGY/CYTOLOGY ORDERABLES [facility] [place] [address] * Specimen to Pathology (surgical or derm) (03/30/2017 12:08 PM EST) AP Specimen 03/30/2017 12:0 8 PM EST 03/30/2017 12:08 PM EST Narrative [facility] - 03/30/2017 12:08 PM EST Specimen requisition ordered. ??Separate Pathology report to follow Brant Chen MD PATHOLOGY/CYTOLOGY ORDERABLES Performing Organization Address [facility] Co de Phone Number [facility] [place] [address] * Specimen to Pathology (surgical or derm) (03/30/2017 12:00 PM EST) AP Specimen 03/30/2017 12:0 0 PM EST 03/30/2017 12:00 PM EST Narrative [facility] - 03/30/2017 12:00 PM EST Specimen requisition ordered. ??Separate Pathology report to follow Brant Chen MD PATHOLOGY/CYTOLOGY ORDERABLES Performing Organization Address [facility] [place] [address] * Specimen to Pathology (surgical or derm) (03/30/2017 11:51 AM EST) AP Specimen 03/30/2017 11:5 1 AM EST 03/30/2017 11:51 AM EST Narrative [facility] - 03/30/2017 11:51 AM EST Specimen requisition ordered. ??Separate Pathology report to follow Brant Chen MD PATHOLOGY/CYTOLOGY ORDERABLES Performing Organization Address [facility] Co de Phone Number [facility] [place] [phone] * Surgical Pathology Report (03/30/2017 11:50 AM EST) FINAL DIAGNOSIS (AP) [id number] ? Location: [facility]; A The signing pathologist has (i) examined the relevant preparation(s) for the specimen(s) and (ii) rendered or confirmed the diagnosis(es). . ?Surgical Pathology DIAGNOSIS A,B - See Synoptic C - Left breast, Deep/lateral margin re-excision - ?Benign fatty breast tissue. D - Left breast, Superficial margin re-excision - ?Benign fatty breast tissue. See Note Note - [place] ink (indicating additional cranial margin) is also present on this superficial margin re-excision. ---- Specimen Parts: ?? A - Left axilliary sentinel node B - Left breast partial mastectomy Specimen ? Procedure: ??Excision with image-guided localization ? Lymph Node Sampling: ?? [place] lymph node(s) ? Specimen Laterality: ?? Left [...] not present in specimen Lymph Nodes ? [place] Lymph Nodes: ?? [place] lymph node biopsy performed ? Number of [place] Nodes Examined: ?3 ? Number of Lymph [...] Chávez DO Verified: ??04/01/2017 ?Pathologist Performed at: ??-[facility] Dept. of Pathology, [place], [place] CLINICAL INFORMATION Specimen Submitted: A - [...] and there are ??no close margins. per [facility] Radiology . Specimen Description: According to [...] 0.8 x 0.4 x 0.4 cm. Color: [place] and yellow. Consistency: Soft. Location: Slices III and IV. Nearest Margin: 0.6 cm to the cranial margin. Other Margins: 0.8 cm to the deep margin, 1.0 cm to the superficial margin, ? > 2 cm from all other margins. OTHER Parenchyma: Predominately fatty with scant fibrous tissue. Wire/Clip: Biopsy marker clip identified within slice IV. SECTIONS/PROCESSI NG: (1) customer response representative slice I, lateral margin; (2) slice III, lesion to cranial margin; (3-5) remainder of slice III; (6) slice IV, lesion to cranial margin (clip); (7-8) remainder of slice IV; (9) customer response representative slice V; (10) customer response representative slice X, medial margin. (R10) Ischemic [...] sectioned. (T3) ??sns 04/01/2017 9:38 AM EST [facility] BREAST STRUCTURE / Unknown 03/30/2017 11:50 AM EST 03/30/2017 11:50 AM EST BREAST STRUCTURE / Unknown 03/30/2017 11:50 AM EST 03/30/2017 11:50 AM EST BREAST STRUCTURE / Unknown 03/30/2017 11:50 AM EST 03/30/2017 11:50 AM EST BREAST STRUCTURE / Unknown 03/30/2017 11:50 AM EST 03/30/2017 11:50 AM EST Brant Chen MD PATHOLOGY/[place] [address] * Mammo Direct Digital Left (03/30/2017 9:15 [...] Routine documented in this encounter Care Teams Senior Clinical Data Manager Relationship Specialty Start Date End Date Ana Her MD [address] [place] [address] PCP - General 07/29/13 documented as of this encounter
--- OUTSIDE RECORDS SUMMARY | 2023-12-02 14:03 | XMS_ITS | Encounter Summary ---
Author Organization [facility] [place] [address] Care Team Providers Care Palliative Senior Np Name Role Phone Ana Her MD Primary Care Provider [phone] Encounter Details Date Type Department Care Team (Latest Contact Info) Description 02/25/2017 1:31 PM EDT Hospital En[place] [address] Maryam Yee MD [facility] [place] [address] Abnormal mammogram Discharge Disposition: Home Social History [...] unspecified documented in this encounter Care Teams Palliative Senior Np Relationship Specialty Start Date End Date Ana Her MD [address] [place] [address] PCP - General 07/29/13 documented as of this encounter
--- OUTSIDE RECORDS SUMMARY | 2023-12-02 14:03 | XMS_ITS | Encounter Summary ---
[place] [address] Care Team Providers Care Windows Admin Name Role Phone Ana Her MD Primary Care Provider [phone] Reason for Visit * Reason Comments Establish Care * Consultation (Routine) - Specialty Diagnoses / Procedures Referred By Christiano hackett Referred To Contact Hematology and Oncology Diagnoses Other abnormal and inconclusive findings on diagnostic imaging of breast abnormal mammo, left breast Jackie Cisneros, WENDY [address] [place] [address] [facility] [address] [place] [address] Referral ID Status Reason Start Date Expiration Date V isits Requested Visits Authorized [id number] Consult, Test & Treat Connection Center 02/17/2017 05/20/2017 6 6 Encounter Details Date Type Department Care Team (Late st Contact Info) Description 03/03/2017 9:00 AM EDT Office Visit [place] [address] Malika Chen MD [facility] [place] [address] Argentina Sanchez, RN Malignant neoplasm of lower-outer [...] she will meet with medical and radiation ([facility]) oncologists after surgery. 4. Contact phone number for questions or concerns in the immediate post- operative period. 5. Comprehensive Breast Program Binder. 6. Post Breast Surgery Exercises handout created by physical therapists at [facility]. 7. Breast Cancer Treatment Process care map provided and reviewed. 8. Things to Consider...What I Wish I Knew advice from breast cancer patients handout provided. She verbalized understanding of the plan of care and states all her questions were answered. Twentyminutes was spent in education and providing support. Alma Delia has our contact information. She will call the neurosurgical nurse to schedule surgery after she has her [...] was obtained which revealed IDC which is ER/[place]+, her2-. She has no known breast masses, no adenopathy, no nipple discharge. Alma Delia had a bone scan in [place] which was read as possible metastasis in the left tibia. Of note- she fractured this area recently. She has recovered well. PMH HNT NIDDM not on meds Spinal stenosis Fractured left tibial plateau December, GERD FH: Maternal first cousin with breast cancer Brother with rectal cancer Sister with PE SH: lives alone. Has good support from sisters who live in [place]. Non smoker. Has a son who lives [...] 71 yo female with radiographic stage I ER/MN+, HER2- IDC of the left breast. No [...] positive documented in this encounter Care Teams Windows Admin Relationship Specialty Start Date End Date Ana Her MD [address] [place] [address] PCP - General 07/29/13 documented as of this encounter
--- OUTSIDE RECORDS SUMMARY | 2023-12-02 14:03 | XMS_ITS | Encounter Summary ---
Author Organization [facility] [place] [place] [address] Care Team Providers Care Outreach Rep Name Role Phone Ana Her MD Primary Care Provider [phone] Encounter Details Date Type Department Care Team (Latest Contact Info) Description 03/30/2017 8:30 AM [facility] Hospital [place] [address] Malika Chen MD [facility] [place] [address] Malignant neoplasm of upper-outer quadrant of left [...] mg documented in this encounter Care Teams Outreach Rep Relationship Specialty Start Date End Date Ana Her MD [address] [place] [address] PCP - General 07/29/13 documented as of this encounter
--- OUTSIDE RECORDS SUMMARY | 2023-12-02 14:03 | XMS_ITS | Encounter Summary ---
Author Organization [facility] [place] [address] Care Team Providers Care Dietary Supervisor Name Role Phone Ana Her MD Primary Care Provider [phone] Encounter Details Date Type Department Care Team (Late st Contact Info) Description 04/23/2017 Notes [place] [address] Marjorie Ariza Social History Tobacco Use Types [...] Marjorie Ariza - 04/23/2017 2:43 PM EST Branch Service Leader Astrophysics Professor met with pt after consultation with medical [...] on filedocumented in this encounter Care Teams Dietary Supervisor Relationship Specialty Start Date End Date Ana Her MD [address] [facility] [place] [address] PCP - General 07/29/13 documented as of this encounter
--- OUTSIDE RECORDS SUMMARY | 2023-12-02 14:03 | XMS_ITS | Encounter Summary ---
[place] [address] Care Team Providers Care Gathering Machine Feeder Name Role Phone Ana Her MD Primary Care Provider [phone] Reason for Visit * Reason Comments Low Back Pain Bilateral Hip Pain when standing or wal jaquelin Encounter Details Date Type Department Care Team (Late st Contact Info) Description 09/12/2014 11:20 AM EDT Office [place] [phone] Kris Benoit MD [facility] [place] [address] Neurogenic claudication due to lumbar spinal stenosis [...] pain free. Lumbar MRI from 08/16/2014 from [facility] is notable for multilevel degenerative changes L2-L3, L3-L4, L4-L5, L5-S1. At L2-L3, she has wwjiojzj-bz-hqmesf spinal stenosis, but she has no leg [...] claudication documented in this encounter Care Teams Gathering Machine Feeder Relationship Specialty Start Date End Date Ana Her MD [facility] [address] [place] [address] PCP - General 07/29/13 documented as of this encounter
--- OUTSIDE RECORDS SUMMARY | 2023-12-02 14:03 | XMS_ITS | Encounter Summary ---
Author Organization [facility] [place] [address] Care Team Providers Care Income Tax Auditor Name Role Phone Ana Her MD Primary Care Provider [phone] Encounter Details Date Type Department Care Team (Late st Contact Info) Description 05/10/2018 2:15 PM EST Office [place] [address] Hiral Padgett HELPDESK ADMINISTRATOR [facility] [place] [address] History of breast cancer Social History Tobacco [...] with image-guided localization ?Lymph Node Sampling: ?? [place] lymph node(s) ?Specimen Laterality: ?? Left Tumor [...] ?DCIS not present in specimen Lymph Nodes ?[place] Lymph Nodes: ?? [place] lymph node biopsy performed ?Number of [place] Nodes Examined: ?3 ?Number of Lymph Node(s) [...] mammogram today is cat 2. Leaving for [place] later today for a cardiac ablation/a fib at [facility]. Objective: Physical Exam Constitutional: She is oriented [...] breast documented in this encounter Care Teams Income Tax Auditor Relationship Specialty Start Date End Date Ana Her MD [address] [place] [address] PCP - General 07/29/13 documented as of this encounter
--- OUTSIDE RECORDS SUMMARY | 2023-12-02 14:03 | XMS_ITS | Encounter Summary ---
[place] [address] Care Team Providers Care Vp Software Name Role Phone Ana Her MD Primary Care Provider [phone] Encounter Details Date Type Department Care Team (Late st Contact Info) Description 05/19/2017 Telephone [place]ematology [place] [phone] Sandy Chapman Social History Tobacco Use Types [...] on filedocumented in this encounter Care Teams Vp Software Relationship Specialty Start Date End Date Ana Her MD [address] [place] [address] PCP - General 07/29/13 documented as of this encounter
--- OUTSIDE RECORDS SUMMARY | 2023-12-02 14:04 | XMS_ITS | Encounter Summary ---
Author [place] [address] Care Team Providers Care Bowling Or Skating Front Desk Clerk Name Role Phone Unavailable Primary Care Provider Unavailabl e Encounter Details Date Type Department Care Team (Latest Contact Info) Description 12/25/2010 - 12/25/2010 11:59 PM EDT Hospital Encounter [place] [address] Jackie Cisneros APRN [address] [place] [address] Discharge Disposition: Home Social History Tobacco Use [...] Only Mammo (12/25/2010 12:00 AM EDT) Narrative [facility] - 02/23/2017 3:27 PM EDT This exam is for storage only and is auto-finalizing. Jackie Cisneros APRN IMG FILM LIBRARY ORD ERABLES NADINE Sethi documented in this encounter Visit Diagnoses Not on filedocumented in this encounter
--- OUTSIDE RECORDS SUMMARY | 2023-12-02 14:04 | XMS_ITS | Encounter Summary ---
[place] [address] Care Team Providers Care Linux Engineer Name Role Phone Ana Her MD Primary Care Provider [phone] Encounter Details Date Type Department Care Team (Late st Contact Info) Description 07/26/2013 Orders [place] [address] Ana Her MD [facility] [address] [place] [address] Social History Tobacco Use Types Packs/Day Years [...] is a Non-reportable exam Ana Her MD [facility] FILM LIBRARY ORD ERABLES documented in this encounter Visit Diagnoses Not on filedocumented in this encounter Care Teams Linux Engineer Relationship Specialty Start Date End Date Ana Her MD [address] [place] [address] PCP - General 07/29/13 documented as of this encounter
--- OUTSIDE RECORDS SUMMARY | 2023-12-02 14:04 | XMS_ITS | Encounter Summary ---
Author Organization [facility] Address [address] [place] [address] Care Team Providers Care Hobber Name Role Phone Unknown, Provider Primary Care Provider [phone] Encounter Details Date Type Department Care Team (Late st Contact Info) Description 03/17/2017 Results Only [facility] [phone] Kat Lazaro MD [address] [place] [address] [place] [address] Social History Tobacco Use Types Packs/Day Years [...] ? DIGNA KIMBROUGH ? Accession #: ? [id number] ? : ? 1945 (Age: 71) ??F [...] (ASCP) 03/18/2017 8:14 AM End of Report [facility] 03/17/2017 16:1 5 EST 03/17/2017 16:15 EST Kat Lazaro MD PATHOLOGY [facility] [address] [place] [address] documented in this encounter Visit Diagnoses Not on filedocumented in this encounter Care Teams Hobber Relationship Specialty Start Date End Date Unknown, Provider, PCP - General 01/13/14 documented as of this encounter
--- OUTSIDE RECORDS SUMMARY | 2023-12-02 14:04 | XMS_ITS | Encounter Summary ---
Author Organization [facility] Address [address] [place] [address] Care Team Providers Care Leave Specialist Name Role Phone Unknown, Provider Primary Care Provider Encounter Details Date Type Department Care Team (Late st Contact Info) Description 08/12/2021 Lab Requisition [facility] Pathology & Laboratory Medicine - [address] [address] Outr Resulting Lab, Provider Social History Tobacco [...] Priority Date/Time Associated Diagnosis Comments ZZCOVID-19 TEST [facility] PCR Today 08/12/2021 15:00 EDT COVID-19 TESTING Routine 08/12/2021 15:0 0 EDT documented in this encounter Results * COVID-19 TEST [facility] PCR (08/12/2021 15:00 EDT) Swab 08/12/2021 15:0 0 EDT 08/13/2021 16:56 EDT Provider Outr Resulting Lab MICROBIOLOGY - GENERAL ORDERABLES [facility] [address] [place] [address] * COVID-19 TESTING (08/12/2021 15:00 EDT) COVID-19 rt-PCR Result Negative Negative 08/14/2021 11:53 EDT [facility] Comment: This test has [...] was performed using the palomo SARS-CoV-2 assay ([employer] on the Palomo 6800 System Performing Lab [facility] [address] [facility] 08/14/2021 11:53 EDT [facility] Swab 08/12/2021 15:0 0 EDT 08/13/2021 16:56 EDT Provider Outr Resulting Lab MICROBIOLOGY - GENERAL ORDERABLES [facility] [address] [place] [address] documented in this encounter Visit Diagnoses Not on filedocumented in this encounter Care Teams Leave Specialist Relationship Specialty Start Date End Date Unknown, Provider, PCP - General 01/13/14 documented as of this encounter
--- OUTSIDE RECORDS SUMMARY | 2023-12-02 14:04 | XMS_ITS | Encounter Summary ---
[place] [address] Care Team Providers Care Pullboat Engineer Name Role Phone Unavailable Primary Care Provider Unavailabl e Encounter Details Date Type Department Care Team (Latest Contact Info) Description 01/29/2013 - 01/29/2013 11:59 PM EDT Hospital Encounter [place] [address] Jackie Cisneros APRN [address] [place] [address] Discharge Disposition: Home Social History Tobacco Use [...] Only Mammo (01/29/2013 12:00 AM EDT) Narrative [facility] - 02/23/2017 3:26 PM EDT This exam is for storage only and is auto-finalizing. Jackie Cisneros APRN IMG FILM LIBRARY ORD ERABLES NADINE Sethi documented in this encounter Visit Diagnoses Not on filedocumented in this encounter
--- OUTSIDE RECORDS SUMMARY | 2023-12-02 14:04 | XMS_ITS | Encounter Summary ---
[place] [address] Care Team Providers Care Telephoto Engineer Name Role Phone Ana Her MD Primary Care Provider [phone] Encounter Details Date Type Department Care Team (Latest Contact Info) Description 04/24/2014 - 04/24/2014 11:59 PM EST Hospital Encounter [place] [address] Maryam Yee MD [facility] [place] [address] Screening breast examination Discharge Disposition: Home Social [...] Only Mammo (04/24/2014 12:00 AM EST) Narrative [facility] - 02/19/2017 1:46 PM EDT This exam is for storage only and is auto-finalizing. Maryam Yee MD IMG FILM LIBRARY O RDERABLES [place], [place] documented in this encounter Visit Diagnoses Diagnosis Screening breast examination (Not by Mammogram) Other screening breast examination documented in this encounter Care Teams Telephoto Engineer Relationship Specialty Start Date End Date Ana Her MD [address] [facility] [address] [place] [address] PCP - General 07/29/13 documented as of this encounter
--- OUTSIDE RECORDS SUMMARY | 2023-12-02 14:04 | XMS_ITS | Encounter Summary ---
Author Organization [facility] Address [address] [place] [address] Care Team Providers Care Aircraft Life Support Fitter Name Role Phone Unavailable Primary Care Provider Unavailabl e Encounter Details Date Type Department Care Team (Latest Contact Info) Description 01/10/2014 20:50 EDT - 01/10/2014 23:59 EDT Hospital Encounter [facility] [address] [place] [address] Unknown, Provider, Discharge Disposition: Home or Self Care Social History Tobacco Use Types Packs/Day Years Used Date Smoking Tobacco: Never Assessed Sex and Gender Information Value Date Recorded Sex Assigned at Not on file Gender Identity Not on file Sexual Orientation Not on file documented as of this encounter Discharge Disposition Disposition Code Departure Means Destination Home or Self Long-Term documented in this encounter Plan of Treatment Not on file documented as of this encounter Visit Diagnoses Not on filedocumented in this encounter
--- OUTSIDE RECORDS SUMMARY | 2023-12-02 14:04 | XMS_ITS | Encounter Summary ---
[place] [address] Care Team Providers Care Instructional Support Assistant Name Role Phone Unavailable Primary Care Provider Unavailabl e Encounter Details Date Type Department Care Team (Latest Contact Info) Description 11/12/2007 - 11/12/2007 11:59 PM EDT Hospital Encounter [place] [address] Jackie Cisneros APRN [address] [place] [address] Discharge Disposition: Home Social History Tobacco Use [...] Only Mammo (11/12/2007 12:00 AM EDT) Narrative [facility] - 02/23/2017 3:31 PM EDT This exam is for storage only and is auto-finalizing. Jackie Cisneros APRN IMG FILM LIBRARY ORD ERABLES NADINE Sethi documented in this encounter Visit Diagnoses Not on filedocumented in this encounter
--- OUTSIDE RECORDS SUMMARY | 2023-12-02 14:04 | XMS_ITS | Encounter Summary ---
[place] [address] Care Team Providers Care Director Of Human Resources Name Role Phone Unavailable Primary Care Provider Unavailabl e Encounter Details Date Type Department Care Team (Latest Contact Info) Description 03/19/2006 - 03/19/2006 11:59 PM EST Hospital Encounter [place] [address] Jackie Cisneros APRN [address] [place] [address] Discharge Disposition: Home Social History Tobacco Use [...] Mammo (03/19/2006 12:00 AM EST) Narrative [facility] - 02/23/2017 3:31 PM EDT This exam is for storage only and is auto-finalizing. Jackie Cisneros APRN G FILM LIBRARY ORD ERABLES NADINE Sethi documented in this encounter Visit Diagnoses Not on filedocumented in this encounter
--- OUTSIDE RECORDS SUMMARY | 2023-12-02 14:04 | XMS_ITS | Patient Health Record ---
Author Organization [facility] Address [address] [place] [address] Care Team Providers Care Athlete Marketing Agent Name Role Phone Non Compass, Provider Primary Care Provider [phone] Reason For Referral No Information Medications Medication [...] Medicare [address] [place] [id number] Digna Olson Self - patient is the insured Blue Cross Blue Shield Medicare Plan [address] [place], [place] [id number] Digna Olson Self - patient is the insured Medical (General) History Medical History History ICD Code Atrial fibrillation Hypertension Hypothyroidism Non insulin-dependent diabetes
--- OUTSIDE RECORDS SUMMARY | 2023-12-02 14:04 | XMS_ITS | Encounter Summary ---
[place] [address] Care Team Providers Care Party Planner Name Role Phone Ana Her MD Primary Care Provider [phone] Reason for Visit * Reason Comments Low Back Pain Encounter Details Date Type Department Care Team (Late st Contact Info) Description 08/30/2014 8:35 AM EDT Office [place] [phone] Michelle Hurtado APRN [facility] [place] [address] Neurogenic claudication due to lumbar spinal stenosis [...] this encounter Progress Notes * Michelle Hurtado, INCUBATOR TENDER - 08/30/2014 9:37 AM EDT CHIEF COMPLAINT: [...] activity. 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 MEDICATIONS & ALLERGIES: [...] care of this patient. Michelle Hurtado MS, INCUBATOR TENDER, STIPPLER-C [facility] documented in this encounter Plan of Treatment Not on file documented as of this encounter Visit Diagnoses Diagnosis Neurogenic claudication due to lumbar spinal stenosis Spinal stenosis, lumbar region, with neurogenic claudication documented in this encounter Care Teams Party Planner Relationship Specialty Start Date End Date Ana Her MD [address] [place] [address] PCP - General 07/29/13 documented as of this encounter
--- OUTSIDE RECORDS SUMMARY | 2023-12-02 14:04 | XMS_ITS | Encounter Summary ---
Author Organization [facility] Address [address] [place] [address] Care Team Providers Care Histopath Tech Name Role Phone Unknown, Provider Primary Care Provider Encounter Details Date Type Department Care Team (Late st Contact Info) Description 11/19/2023 Lab Requisition [facility] Pathology & Laboratory Medicine - [facility] [address] [place], [place] [address] Outr Resulting Lab, Provider Social History Tobacco [...] Procedure Name Priority Date/Time Associated Diagnosis Comments TRANSFERRIN Routine 11/19/2023 6:05 EDT documented in this encounter Results * (ABNORMAL) TRANSFERRIN (11/19/2023 6:05 EDT) Transferrin 188(L) 201 - 352 mg/dL 11/20/2023 9:45 EDT [facility] Blood VENOUS BLOOD / Unknown 11/19/2023 6:05 EDT 11/19/2023 17:32 EDT Provider Outr Resulting Lab CHEMISTRY & BLOOD GAS ORDERABLES [facility] [address] [place], [place] [address] documented in this encounter Visit Diagnoses Not on filedocumented in this encounter Care Teams Histopath Tech Relationship Specialty Start Date End Date Unknown, ProviderMD PCP - General 01/13/14 documented as of this encounter
--- OUTSIDE RECORDS SUMMARY | 2023-12-02 14:04 | XMS_ITS | Encounter Summary ---
Author Organization [facility] Address [address] [place] [address] Care Team Providers Care Sales Service Assistant Name Role Phone Unknown, Provider Primary Care Provider Encounter Details Date Type Department Care Team (Late st Contact Info) Description 10/26/2022 Lab Requisition [facility] Pathology & Laboratory Medicine - [facility] [address] [place] [address] Outr Resulting Lab, Provider Social History Tobacco [...] Neg and Giardia Antigen Neg 13:[address] [facility] Feces SPECIMEN FROM RECTUM / Unknown 10/25/2022 15:00 EDT 10/26/2022 15:25 EDT Provider Outr Resulting Lab MICROBIOLOGY - GENERAL ORDERABLES Performing Organization Address City/[facility]/ZIP Co de Phone Number [facility] [address] [place] [address] * FECAL BACTERIAL PATHOGENS BY PCR (10/25/2022 15:00 EDT) Salmonella PCR Negative Negative 10/26/2022 19:[address] [facility] Shigella/Enteroin vasive E. coli Negative Negative 10/26/2022 19:[address] [facility] HN LAB CAMPYLOBACTER PCR Negative Negative 10/26/2022 19:[address] [facility] Shiga Toxin PCR Negative Negative 19:[address] [facility] Feces SPECIMEN FROM RECTUM / Unknown 10/25/2022 15:00 EDT 10/26/2022 15:25 EDT Provider Outr Resulting Lab MICROBIOLOGY - GENERAL ORDERABLES Performing Organization Address [facility] Co de Phone Number [facility] [address] [place] [address] * OVA/PARASITE EXAM (10/25/2022 15:00 EDT) Parasite No ova and parasites seen. 10/28/2022 15:[address] [facility] Feces SPECIMEN FROM RECTUM / Unknown 10/25/2022 15:00 EDT 10/26/2022 15:[address] [facility] - 10/28/2022 15:08 EDT (If Cryptosporidium, Cyclospora, or Microsporidium are suspected, specific tests must be requested.) Single negative specimen does not rule out the possibility of a parasitic infection. Provider Outr Resulting Lab MICROBIOLOGY - GENERAL ORDERABLES Performing Organization Address [facility] Co de Phone Number [facility] [address] [place] [address] documented in this encounter Visit Diagnoses Not on filedocumented in this encounter Care Teams Sales Service Assistant Relationship Specialty Start Date End Date Unknown, Provider, PCP - General 01/13/14 documented as of this encounter
--- OUTSIDE RECORDS SUMMARY | 2023-12-02 14:04 | XMS_ITS | Encounter Summary ---
[place] [address] Care Team Providers Care Hand Chain Maker Name Role Phone Unavailable Primary Care Provider Unavailabl e Encounter Details Date Type Department Care Team (Latest Contact Info) Description 12/19/2009 - 12/19/2009 11:59 PM EDT Hospital Encounter [place] [address] Jackie Cisneros APRN [address] [place] [address] Discharge Disposition: Home Social History Tobacco Use [...] Only Mammo (12/19/2009 12:00 AM EDT) Narrative [facility] - 02/23/2017 3:29 PM EDT This exam is for storage only and is auto-finalizing. Jackie Cisneros APRN IMG FILM LIBRARY ORD ERABLES NADINE Sethi documented in this encounter Visit Diagnoses Not on filedocumented in this encounter
--- OUTSIDE RECORDS SUMMARY | 2023-12-02 14:04 | XMS_ITS | Encounter Summary ---
[place] [address] Care Team Providers Care Lining Maker Hand Name Role Phone Unavailable Primary Care Provider Unavailabl e Encounter Details Date Type Department Care Team (Latest Contact Info) Description 04/04/2005 - 04/04/2005 11:59 PM EST Hospital Encounter [place] [address] Jackie Cisneros APRN [address] [place] [address] Discharge Disposition: Home Social History Tobacco Use [...] Only Mammo (04/04/2005 12:00 AM EST) Narrative [facility] - 02/23/2017 3:32 PM EDT This exam is for storage only and is auto-finalizing. Jackie Cisneros APRN G FILM LIBRARY ORD ERABLES NADINE Sethi documented in this encounter Visit Diagnoses Not on filedocumented in this encounter
--- OUTSIDE RECORDS SUMMARY | 2023-12-02 14:04 | XMS_ITS | Encounter Summary ---
[place] [address] Care Team Providers Care Hoist Worker Name Role Phone Ana Her MD Primary Care Provider [phone] Reason for Visit * Reason Onset Date Comments Referral 07/29/2013 Encounter Details Date Type Department Care Team (Late st Contact Info) Description 07/29/2013 [place] [phone] Sophia Palacios Referral Social History Tobacco Use [...] on filedocumented in this encounter Care Teams Hoist Worker Relationship Specialty Start Date End Date Ana Her MD [address] [facility] [facility] [address] [place] [address] PCP - General 07/29/13 documented as of this encounter
--- OUTSIDE RECORDS SUMMARY | 2023-12-02 14:04 | XMS_ITS | Encounter Summary ---
Author Organization [facility] [place] [address] Care Team Providers Care Coordinator Of Health Services Name Role Phone Ana Her MD Primary Care Provider [phone] Encounter Details Date Type Department Care Team (Late st Contact Info) Description 08/16/2014 Orders Only Functional [facility]ational Program at [facility] [address] [place] [address] Khari Martínez MD [facility] [place] [address] Social History Tobacco Use Types Packs/Day Years [...] is a Non-reportable exam Khari Martínez MD [facility] FILM LIBRARY ORD ERABLES documented in this encounter Visit Diagnoses Not on filedocumented in this encounter Care Teams Coordinator Of Health Services Relationship Specialty Start Date End Date Ana Her MD [facility] [address] [place] [address] PCP - General 07/29/13 documented as of this encounter
--- OUTSIDE RECORDS SUMMARY | 2023-12-02 14:04 | XMS_ITS | Encounter Summary ---
[place] [address] Care Team Providers Care Cardiac Rehabilitation Specialist Name Role Phone Unavailable Primary Care Provider Unavailabl e Encounter Details Date Type Department Care Team (Latest Contact Info) Description 12/08/2008 - 12/08/2008 11:59 PM EDT Hospital Encounter [place] [address] Jackie Cisneros APRN [address] [place] [address] Discharge Disposition: Home Social History Tobacco Use [...] Only Mammo (12/08/2008 12:00 AM EDT) Narrative [facility] - 02/23/2017 3:30 PM EDT This exam is for storage only and is auto-finalizing. Jackie Cisneros APRN IMG FILM LIBRARY ORD ERABLES NADINE Sethi documented in this encounter Visit Diagnoses Not on filedocumented in this encounter
--- OUTSIDE RECORDS SUMMARY | 2023-12-02 14:04 | XMS_ITS | Clinical Summary ---
Author Organization [facility] Address [address] [place] [address] Care Team Providers Care Contact Lens Curve Grinder Name Role Phone Unknown, Provider Primary Care Provider Encounters Date Type Department Care Team Description 11/19/2023 Lab Requisition [place] Pathology & Laboratory Medicine - [facility] [address] [place] [address] Outr Resulting Lab, Provider from Last 3 Months Social History Tobacco Use Types Packs/Day Years [...] Screening 2010 COVID-19 Vaccine ( season) 2023 Procedures Procedure Name Priority Date/Time Associated Diagnosis Comments TRANSFERRIN Routine 11/19/2023 6:05 EDT from Last 3 Months Results * (ABNORMAL) TRANSFERRIN (11/19/2023 6:05 EDT) Transferrin 188(L) 201 - 352 mg/dL 11/20/2023 9:45 EDT [facility] Blood VENOUS BLOOD / Unknown 11/19/2023 6:05 EDT 11/19/2023 17:32 EDT Provider Outr Resulting Lab CHEMISTRY & BLOOD GAS ORDERABLES [facility] [address] [place] [address] from Last 3 Months Care Teams Contact Lens Curve Grinder Relationship Specialty Start Date End Date Unknown, Provider, PCP - General 01/13/14
--- OUTSIDE RECORDS SUMMARY | 2023-12-02 14:04 | XMS_ITS | Encounter Summary ---
Author Organization [facility] Address [address] [place] [address] Care Team Providers Care Circus Rider Name Role Phone Unknown, Provider Primary Care Provider Encounter Details Date Type Department Care Team (Late st Contact Info) Description 01/20/2020 Lab Requisition [facility] Pathology & Laboratory Medicine - [facility] [address] [place] [address] Outr Resulting Lab, Provider Social History Tobacco [...] in accordance with CLIA regulations, College [employer] (CAP) guidelines (Jul 21, 2019), and FDA guidance (Jul 02, 2019). This test is only for use under the Food and Drug Administration's Emergency Use Authorization. Swab ENTIRE NASOPHARYNX / Unknown 01/20/2020 10:30 EDT 01/20/2020 15:35 EDT Provider Outr Resulting Lab MICROBIOLOGY - GENERAL ORDERABLES [place] * COVID-19 TESTING (01/20/2020 10:30 EDT) Pathologist [facility] COVID-19 rt-PCR Result NEGATIVE Negative 01/21/2020 17:21 EDT [facility] Comment: 2019-novel Coronavirus (2019-nCoV) not detected [...] in accordance with CLIA regulations, [employer] (CAP) guidelines (Jul 21, 2019), and FDA guidance (Jul 02, 2019). This test is only for use under the Food and Drug Administration's Emergency Use Authorization. Performing Lab [facility] 01/21/2020 17:21 EDT [facility] Swab 01/20/2020 10:3 0 EDT 01/20/2020 15:35 EDT Provider Outr Resulting Lab MICROBIOLOGY - GENERAL ORDERABLES [facility] [address] [place], [place] [id number] [place] [address] LABORATORY [place], [place] documented in this encounter Visit Diagnoses Not on filedocumented in this encounter Care Teams Circus Rider Relationship Specialty Start Date End Date Unknown, Provider, PCP - General 01/13/14 documented as of this encounter
--- OUTSIDE RECORDS SUMMARY | 2023-12-02 14:04 | XMS_ITS | Referral Summary ---
Author Organization [facility] Address [address] [place] [address] Care Team Providers Care Storm Sash Maker Name Role Phone Unknown, Provider Primary Care Provider [phone] Encounters Date Type Department Care Team Description 11/19/2023 Lab Requisition [facility] Pathology & Laboratory Medicine - [facility] [address] [place] [address] Outr Resulting Lab, Provider from Last 3 Months Social History Tobacco Use Types Packs/Day Years Used Date Smoking Tobacco: Never Assessed Sex and Gender Information Value Date Recorded Sex Assigned at Not on file Gender Identity Not on file Sexual Orientation Not on file Plan of Treatment Not on file Procedures Procedure Name Priority Date/Time Associated Diagnosis Comments TRANSFERRIN Routine 11/19/2023 6:05 EDT from Last 3 Months Results * (ABNORMAL) TRANSFERRIN (11/19/2023 6:05 EDT) Transferrin 188(L) 201 - 352 mg/dL 11/20/2023 9:45 EDT [facility] Blood VENOUS BLOOD / Unknown 11/19/2023 6:05 EDT 11/19/2023 17:32 EDT Provider Outr Resulting Lab CHEMISTRY & BLOOD GAS ORDERABLES [facility] [address] [place], [place] [address] from Last 3 Months Care Teams Storm Sash Maker Relationship Specialty Start Date End Date Unknown, ProviderMD PCP - General 01/13/14
--- OUTSIDE RECORDS SUMMARY | 2023-12-02 14:04 | XMS_ITS | Encounter Summary ---
Author Organization [facility] Address [address] [place] [address] Care Team Providers Care Electrician Rectifier Maintenance Name Role Phone Unknown, Provider Primary Care Provider Encounter Details Date Type Department Care Team (Late st Contact Info) Description 04/06/2022 Lab Requisition [facility] Pathology & Laboratory Medicine - [facility] [address] [place] [address] Outr Resulting Lab, Provider Social History Tobacco [...] Salmonella PCR Negative Negative 04/06/2022 22:54 EST [facility] Shigella/Enteroin vasive E. coli Negative Negative 04/06/2022 22:54 EST [facility] HN LAB CAMPYLOBACTER PCR Negative Negative 04/06/2022 22:54 EST [facility] Shiga Toxin PCR Negative Negative 22:54 EST [facility] Feces SPECIMEN FROM RECTUM / Unknown 04/05/2022 10:41 EST 04/06/2022 18:31 EST Provider Outr Resulting Lab MICROBIOLOGY - GENERAL ORDERABLES [facility] [address] [place] [address] documented in this encounter Visit Diagnoses Not on filedocumented in this encounter Care Teams Electrician Rectifier Maintenance Relationship Specialty Start Date End Date Unknown, Provider, PCP - General 01/13/14 documented as of this encounter
[2023-12-02 15:45] LABS: HCT 33.5 % (36.0-46.0); HGB 10.6 g/dL (11.2-15.7); MCH 33.3 pg (27.0-33.0); MCHC 31.6 % (32.0-36.0); MPV 11.8 fL (8.0-11.0); Platelet Count 140 10^3/uL (130-400); RBC 3.18 10^6/uL (3.93-5.22); RDW 13.3 % (11.7-14.6); RDW-SD 52.4 fL; WBC 7.43 10^3/uL (4.4-10.8)
[2023-12-02 16:21] LABS: Anion Gap 7.9 mmol/L (3-11); BUN 20 mg/dL (7-18); CO2 29.1 mmol/L (21.0-32.0); CREATININE 1.1 mg/dL (0.55-1.02); Calcium 9.8 mg/dL (8.5-10.1); Chloride 106 mmol/L (98-107); Estimated GFR 51.43 (mL/min/1.73m2); Glucose 104 mg/dL (74-106); Magnesium 1.8 mg/dL (1.8-2.4); NT-proBNP 2190 pg/mL (<300); Potassium 4.6 mmol/L (3.5-5.1); Sodium 143 mmol/L (136-145)
[2023-12-02 16:33] LABS: MCV 105 fL (80-95)
== END 2023-12-02 14:00 | disposition home or self-care (01) ==
LOC: NCHCN 13:59
PROVIDERS: PCP Family Medicine; Visit Provider Family Medicine
DX: I50.32 Chronic diastolic (congestive) heart failure (principal)
CPT/HCPCS: 80048; 85027; 83735; 83880

== ENCOUNTER 2024-03-18 11:48 | Outpatient (RCR) | payer MEDICARE, SELFPAY | END 2024-04-02 23:59 | disposition home or self-care (01) | LOC: CR 11:48 | PROVIDERS: PCP Family Medicine; Visit Provider Internal Medicine Cardiovascular Disease ==

== ENCOUNTER 2024-04-18 12:22 | Outpatient (REF) | payer MEDICARE, BC, SELFPAY ==
--- OUTSIDE RECORDS SUMMARY | 2024-04-18 12:25 | XMS_ITS | Data Portability ---
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 The patient is a suitable candidate for the planned procedure. Their chronic medical problems are optimized Further preoperative evaluation is not needed. BMP and CBC are drawn today. The total time devoted to today's encounter, including both the ytex-xr-dfej time with the patient and/or family/caregive r and hvi-ycor-ta-fac e time I personally spent is 30 minutes. Not available 10/14/2023 11:57:30 12/02/2023 12/02/2023 The total time devoted to today's encounter, including both the tuzt-yw-fvgm time with the patient and/or family/caregive r and ceq-lgcp-we-fac e time I personally spent is 35 minutes. Not available 12/02/2023 14:47:23 03/04/2024 03/04/2024 The total time devoted to today's encounter, including both the uivg-xu-ticq time with the patient and/or family/caregive r and scw-zhdm-se-fac e time I personally spent is 44 minutes. Not available 03/04/2024 17:47:18 Plan of Treatment Reminders Order Date Submit Date Provider Last Modified By Organization Details Last Modified Time Details Appointments Nurse Visit 20 2023 10:30A M [facility] Nursing Staff Not available Not available Not available Follow Up 2024 10:00A M Erich Her Not available Not available Not available Lab CBC 2023 024 [facility] Laboratory (Registration ), [address] [place] [address] [place], [address], 10/14/2023 15:11:07 BMP, serum or plasma 2023 024 [facility] Laboratory (Registration ), [address] [place] [address] [place], [address], 10/14/2023 17:41:37 BMP, serum or plasma 2023 024 [facility] Laboratory (Registration ), [address] [place] [address] [place], [address], 12/30/2023 08:56:49 magnesiu m, serum or plasma 2023 024 [email or web address] Laboratory (Registration ), [address] [place] [address] [place], [address], 12/09/2023 07:38:05 BNP (B-type natriure tic peptide) , serum or plasma 2023 024 [facility] Laboratory (Registration ), [address] [place] [address] [place], [address], 12/03/2023 20:48:47 CBC 2023 024 [facility] Laboratory (Registration ), [address] [place] [address] [place], [address], 12/02/2023 16:35:23 BMP, serum or plasma 2023 024 [facility] (Registration ), [address] [place] [address] [place], [address], 04/18/2024 10:54:43 vitamin D, 25-hydro xy, total, [facility] [address] [place] [address] [place], [address], 04/18/2024 10:50:41 HbA1c (hemoglo bin A1c), blood [address] Laboratory (Registration ), [address] [place] [address] [place], [address], 04/18/2024 10:54:43 TSH, serum, reflex free T4 2023 [facility] Laboratory (Registration ), [address] [place] [address] [place], [address], 04/18/2024 10:50:43 [facility] [address] [place] [address] [place], [address], 04/18/2024 10:50:43 ferritin , serum or plasma 2023 [facility] (Registration ), [address] [place] [address] [place], [address], 04/18/2024 11:01:06 iron + total iron-bin ding capacity (TIBC), serum 2023 [facility] Laboratory (Registration ), [address] [place] [address] [facility] [place], [address], 04/18/2024 11:05:19 BMP, serum or plasma [email or web address] Laboratory (Registration ), [address] [place] [address] [place], [address], 04/18/2024 10:54:43 vitamin D, 25-hydro xy, total, serum 2023 [facility] (Registration ), [address] [place] [address] [facility] [place], [address], 04/18/2024 10:50:41 HbA1c (hemoglo bin A1c), blood [address] Laboratory (Registration ), [address] [place] [address] [place], [address], 04/18/2024 10:54:43 TSH, serum, reflex free T4 2023 [facility] (Registration ), [address] [place] [address] [place], [address], 04/18/2024 10:50:43 CBC 2023 [facility] (Registration ), [address] [place] [address] [place], [address], 04/18/2024 10:50:43 ferritin , serum or plasma 2023 [facility] (Registration ), [address] [place] [address] [facility] [place], [address], 04/18/2024 11:01:06 iron + total iron-bin ding capacity (TIBC), serum 2023 [facility] (Registration ), [address] [place] [address] [place], [address], 04/18/2024 11:05:19 Referral None recorded . Procedures None recorded . Surgeries None recorded . Imaging electroc ardiogra m [address], [address], [place], [address], 10/14/2023 11:56:21 Medication Orders tramadol 50 mg tablet 2023 [facility], [address] [place], [address], 02/19/2024 13:12:28 furosemi de 80 mg tablet 2023 024 [facility], [address] [place] [address], [address], [address], 03/04/2024 14:49:38 spironol actone 25 mg tablet 2023 [facility], [address] [place] [address], [facility], [place], [address], 12/02/2023 12:50:28 lisinopr il 5 mg tablet 2023 [facility], [address] [place] [address], [facility] [address], [address], 02/19/2024 13:19:32 carvedil ol 25 mg tablet 2023 [facility], [address] [place] [address], [facility], [place], [address], 02/19/2024 13:19:26 hydromor phone 2 mg tablet 2023 [facility], [address] [place], [address], 03/04/2024 15:12:30 levothyr oxine 75 mcg tablet 2023 024 [email or web address], [address] [place], [address], 03/04/2024 16:32:19 Patient TargetsNo targets recorded. Patient InstructionsNo instructions recorded. 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 None Reported. Results Created Date Observation Date Name Description Value Unit Range Abnormal Flag Note LastModifiedBy Organization Detail LastModifiedTime 10/14/19 24 10/14/2023 COMPL ETE BLOOD COUNT NO DIFF WBC 8.22 10_3/ uL 4.4-10 .8 normal Not Available [address] [place], [address] 10/14/2023 15:11:07 10/14/19 24 10/14/2023 COMPL ETE BLOOD COUNT NO DIFF RBC 3.22 10_6/ uL 3.93-5 .22 low Not Available [address] [place], [address] 10/14/2023 15:11:07 10/14/19 24 10/14/2023 COMPL ETE BLOOD COUNT NO DIFF HGB 10.9 g/dL 11.2-1 5.7 low Not Available [address] [place], [address] 10/14/2023 15:11:07 10/14/19 24 10/14/2023 COMPL ETE BLOOD COUNT NO DIFF HCT 32.5 % 36.0-4 6.0 low Not Available [address] [place], [address] 10/14/2023 15:11:07 10/14/19 24 10/14/2023 COMPL ETE BLOOD COUNT NO DIFF MCV 101 fL 80-95 high Not Available [address] [place], [address] 10/14/2023 15:11:07 10/14/19 24 10/14/2023 COMPL ETE BLOOD COUNT NO DIFF MCH 33.9 pg 27.0-3 3.0 high Not Available [address] [place], [address] 10/14/2023 15:11:07 10/14/19 24 10/14/2023 COMPL ETE BLOOD COUNT NO DIFF MCHC 33.5 % 32.0-3 6.0 normal Not Available [address] [place], [address] 10/14/2023 15:11:07 10/14/19 24 10/14/2023 COMPL ETE BLOOD COUNT NO DIFF RDW 13.9 % 11.7-1 4.6 normal Not Available [address] [place] [place], [address] 10/14/2023 15:11:07 10/14/19 24 10/14/2023 COMPL ETE BLOOD COUNT NO DIFF platelet count 133 10_3/ uL 130-40 0 normal Not Available [address] [place], [address] 10/14/2023 15:11:07 10/14/19 24 10/14/2023 COMPL ETE BLOOD COUNT NO DIFF MPV 12.8 fL 8.0-11 .0 high Not Available [address] [place], [address] 10/14/2023 15:11:07 10/14/19 24 10/14/2023 BASIC METAB OLIC PANEL calcium 9.3 mg/dL 8.5-10 .1 normal Not Available [facility] (Registration ) [address] [place] [address] [place], [address], 10/14/2023 15:19:07 10/14/19 24 10/14/2023 BASIC METAB OLIC PANEL glucose 105 mg/dL 74-106 normal Not Available [facility] (Registration ) [address] [place] [address] [place], [address], 10/14/2023 15:19:07 10/14/19 24 10/14/2023 BASIC METAB OLIC PANEL BUN 49 mg/dL 7-18 high Not Available [facility] (Registration ) [address] [place] [address] [place], [address], 10/14/2023 15:19:07 10/14/19 24 10/14/2023 BASIC METAB OLIC PANEL creatinine 1.9 mg/dL 0.55-1 .02 high Not Available [facility] (Registration ) [address] [place] [address] [place], [address], 10/14/2023 15:19:07 10/14/19 24 10/14/2023 BASIC METAB OLIC PANEL estimated GFR 26.69 mL/min /1.73m 2 The eGFR is calcu lated from a serum creat inine using the CKD-E PI 2020 equat ion. Other varia bles requi red for the equat ion are gende r and age; this equat ion does not inclu de a race coeff icien t. This equat ion has simil ar overa ll perfo rmanc e to previ ous equat ions excep t value s may diffe r, in parti cular , in patie nts with highe r value s of eGFR and young er-ag ed adult s. Not Available [facility] (Registration ) [address] [place] [address] [place], [address], 10/14/2023 15:19:07 10/14/19 24 10/14/2023 BASIC METAB OLIC PANEL sodium 137 mmol/ L 136-14 5 normal Not Available [facility] (Registration ) [address] [place] [address] [place], [address], 10/14/2023 15:19:07 10/14/19 24 10/14/2023 BASIC METAB OLIC PANEL potassium 5.1 mmol/ L 3.5-5. 1 normal Not Available [facility] (Registration ) [address] [place] [address] [place], [address], 10/14/2023 15:19:07 10/14/19 24 10/14/2023 BASIC METAB OLIC PANEL chloride 104 mmol/ L 98-107 normal Not Available [facility] (Registration ) [address] [place] [address] [place], [address], 10/14/2023 15:19:07 10/14/19 24 10/14/2023 BASIC METAB OLIC PANEL CO2 20.3 mmol/ L 21.0-3 2.0 low Not Available [facility] (Registration ) [address] [place] [address] [place], [address], 10/14/2023 15:19:07 10/14/19 24 10/14/2023 BASIC METAB OLIC PANEL anion gap 12.7 mmol/ L 3-11 high Not Available [facility] (Registration ) [address] [place] [address] [place], [address], 10/14/2023 15:19:07 11/18/19 24 11/18/2023 LACTA TE lactate 1.0 mmol/ L 0.6-1. 4 normal Not Available [address] [place], [address] 11/18/2023 15:53:33 11/18/19 24 11/18/2023 COMPL ETE BLOOD COUNT W/DIF F WBC 8.69 10_3/ uL 4.4-10 .8 normal Not Available [address] [place], [address] 11/18/2023 15:57:13 11/18/19 24 11/18/2023 COMPL ETE BLOOD COUNT W/DIF F RBC 3.16 10_6/ uL 3.93-5 .22 low Not Available [address] [place], [address] 11/18/2023 15:57:13 11/18/19 24 11/18/2023 COMPL ETE BLOOD COUNT W/DIF F HGB 10.7 g/dL 11.2-1 5.7 low Not Available [address] [place], [address] 11/18/2023 15:57:13 11/18/19 24 11/18/2023 COMPL ETE BLOOD COUNT W/DIF F HCT 33.0 % 36.0-4 6.0 low Not Available [address] [place], [address] 11/18/2023 15:57:13 11/18/19 24 11/18/2023 COMPL ETE BLOOD COUNT W/DIF F MCV 104 fL 80-95 high Not Available [facility] [address] [place], [address] 11/18/2023 15:57:13 11/18/19 24 11/18/2023 COMPL ETE BLOOD COUNT W/DIF F MCH 33.9 pg 27.0-3 3.0 high Not Available [address] [place], [address] 11/18/2023 15:57:13 11/18/19 24 11/18/2023 COMPL ETE BLOOD COUNT W/DIF F MCHC 32.4 % 32.0-3 6.0 normal Not Available [address] [place], [address] 11/18/2023 15:57:13 11/18/19 24 11/18/2023 COMPL ETE BLOOD COUNT W/DIF F RDW 14.6 % 11.7-1 4.6 normal Not Available [address] [place], [address] 11/18/2023 15:57:13 11/18/19 24 11/18/2023 COMPL ETE BLOOD COUNT W/DIF F platelet count 134 10_3/ uL 130-40 0 normal Not Available [address] [place], [address] 11/18/2023 15:57:13 11/18/19 24 11/18/2023 COMPL ETE BLOOD COUNT W/DIF F MPV 11.2 fL 8.0-11 .0 high Not Available [address] [place], [address] 11/18/2023 15:57:13 11/18/19 24 11/18/2023 COMPL ETE BLOOD COUNT W/DIF F neutrophils % 74.8 % Not Available [address] [place], [address] 11/18/2023 15:57:13 11/18/19 24 11/18/2023 COMPL ETE BLOOD COUNT W/DIF F lymphocytes % 13.2 % Not Available [address] [place], [address] 11/18/2023 15:57:13 11/18/19 24 11/18/2023 COMPL ETE BLOOD COUNT W/DIF F monocytes % 5.9 % Not Available [address] [place], [address] 11/18/2023 15:57:13 11/18/19 24 11/18/2023 COMPL ETE BLOOD COUNT W/DIF F eosinophils % 5.2 % Not Available [address] [place], [address] 11/18/2023 15:57:13 11/18/19 24 11/18/2023 COMPL ETE BLOOD COUNT W/DIF F basophils % 0.6 % Not Available [address] [place], [address] 11/18/2023 15:57:13 11/18/19 24 11/18/2023 COMPL ETE BLOOD COUNT W/DIF F immature grans % 0.3 % Not Available [address] [place], [address] 11/18/2023 15:57:13 11/18/19 24 11/18/2023 COMPL ETE BLOOD COUNT W/DIF F nucleated RBC 0.0 % 0.0-0. 3 normal Not Available [address] [place], [address] 11/18/2023 15:57:13 11/18/19 24 11/18/2023 COMPL ETE BLOOD COUNT W/DIF F absolute neutrophil count 6.50 10_3/ uL 1.2-6. 7 normal Not Available [address] [place], [address] 11/18/2023 15:57:13 11/18/19 24 11/18/2023 COMPL ETE BLOOD COUNT W/DIF F absolute lymphocyte count 1.15 10_3/ uL 1.2-3. 4 low Not Available [address] [place], [address] 11/18/2023 15:57:13 11/18/19 24 11/18/2023 COMPL ETE BLOOD COUNT W/DIF F absolute monocyte count 0.51 10_3/ uL 0.1-0. 8 normal Not Available [address] [place], [address] 11/18/2023 15:57:13 11/18/19 24 11/18/2023 COMPL ETE BLOOD COUNT W/DIF F absolute eosinophil count 0.45 10_3/ uL 0.0-0. 7 normal Not Available [address] [place], [address] 11/18/2023 15:57:13 11/18/19 24 11/18/2023 COMPL ETE BLOOD COUNT W/DIF F absolute basophil count 0.05 10_3/ uL 0.0-0. 2 normal Not Available [address] [place], [address] 11/18/2023 15:57:13 11/18/19 24 11/18/2023 PROTH ROMBI N TIME prothrombin time 10.5 sec 9.1-11 .1 normal Not Available [address] [place], [address] 11/18/2023 16:14:17 11/18/19 24 11/18/2023 PROTH ROMBI N TIME INR 1.0 0.9-1. 1 normal Recom noel d INR thera peuti c range s for orall y admin ister ed drugs are as follo ws: -Jair dard Inten sity 2.0 to 3.0 -High er Inten sity 3.0 to 4.5 Not Available [address] [place], [address] 11/18/2023 16:14:17 11/18/19 24 11/18/2023 PTT ACTIV ATED PTT activated 19.6 sec 23.6-3 2.8 low Hepar in Thera peuti c Range for PTT = 52-84 secon ds New Hepar in Thera peuti c Range 06/09 Not Available [address], [address] 11/18/2023 16:14:18 11/18/19 24 11/18/2023 COMPR EHENS NADEEM METAB OLIC PANEL calcium 9.0 mg/dL 8.5-10 .1 normal Not Available [address], [address] 11/18/2023 16:19:21 11/18/19 24 11/18/2023 COMPR EHENS NADEEM METAB OLIC PANEL glucose 100 mg/dL 74-106 normal Not Available [facility] [address] [place], [address] 11/18/2023 16:19:21 11/18/19 24 11/18/2023 COMPR EHENS NADEEM METAB OLIC PANEL BUN 15 mg/dL 7-18 normal Not Available [facility] [address] [place], [address] 11/18/2023 16:19:21 11/18/19 24 11/18/2023 COMPR EHENS NADEEM METAB OLIC PANEL creatinine 1.0 mg/dL 0.55-1 .02 normal Not Available [address] [place] [place], [address] 11/18/2023 16:19:21 11/18/19 24 11/18/2023 COMPR EHENS NADEEM METAB OLIC PANEL estimated GFR 57.66 mL/min /1.73m 2 The eGFR is calcu lated from a serum creat inine using the CKD-E PI 2020 equat ion. Other varia bles requi red for the equat ion are gende r and age; this equat ion does not inclu de a race coeff icien t. This equat ion has simil ar overa ll perfo rmanc e to previ ous equat ions excep t value s may diffe r, in parti cular , in patie nts with highe r value s of eGFR and young er-ag ed adult s. Not Available [address] [place], [address] 11/18/2023 16:19:21 11/18/19 24 11/18/2023 COMPR EHENS NADEEM METAB OLIC PANEL total protein 6.8 g/dL 6.4-8. 2 normal Not Available [address], [address] 11/18/2023 16:19:21 11/18/19 24 11/18/2023 COMPR EHENS NADEEM METAB OLIC PANEL albumin 3.8 g/dL 3.4-5. 0 normal Not Available [address] [place], [address] 11/18/2023 16:19:21 11/18/19 24 11/18/2023 COMPR EHENS NADEEM METAB OLIC PANEL bilirubin, total 0.92 mg/dL 0.2-1. 0 normal Not Available [address] [place], [address] 11/18/2023 16:19:21 11/18/19 24 11/18/2023 COMPR EHENS NADEEM METAB OLIC PANEL alk phos 68 U/L 46-116 normal Not Available [address] [place], [address] 11/18/2023 16:19:21 11/18/19 24 11/18/2023 COMPR EHENS NADEEM METAB OLIC PANEL sodium 144 mmol/ L 136-14 5 normal Not Available [address] [place], [address] 11/18/2023 16:19:21 11/18/19 24 11/18/2023 COMPR EHENS NADEEM METAB OLIC PANEL potassium 3.6 mmol/ L 3.5-5. 1 normal Not Available [address] [place], [address] 11/18/2023 16:19:21 11/18/19 24 11/18/2023 COMPR EHENS NADEEM METAB OLIC PANEL chloride 106 mmol/ L 98-107 normal Not Available [address] [place], [address] 11/18/2023 16:19:21 11/18/19 24 11/18/2023 COMPR EHENS NADEEM METAB OLIC PANEL CO2 29.6 mmol/ L 21.0-3 2.0 normal Not Available [address] [place], [address] 11/18/2023 16:19:21 11/18/19 24 11/18/2023 COMPR EHENS NADEEM METAB OLIC PANEL anion gap 8.4 mmol/ L 3-11 normal Not Available [address] [place], [address] 11/18/2023 16:19:21 11/18/19 24 11/18/2023 COMPR EHENS NADEEM METAB OLIC PANEL AST 15 U/L 15-37 normal Not Available [facility] [address] [place], [address] 11/18/2023 16:19:21 11/18/19 24 11/18/2023 COMPR EHENS NADEEM METAB OLIC PANEL ALT 16 U/L 14-59 normal Not Available [facility] [address] [place], [address] 11/18/2023 16:19:21 11/18/19 24 11/18/2023 MAGNE SIUM magnesium 1.9 mg/dL 1.8-2. 4 normal Not Available [address] [place], [address] 11/18/2023 16:19:21 11/18/19 24 11/18/2023 LIPAS E lipase 24 U/L 16-77 normal Not Available [facility] [address] [place], [address] 11/18/2023 16:19:22 11/18/19 24 11/18/2023 TROPO LUCIA I troponin I < 50 NG/L < or =60 Not Available [address] [place], [address] 11/18/2023 16:19:22 11/18/19 24 11/18/2023 NT-IA OBNP nt-probnp 3052 pg/mL <300 high NT-pr oBNP value s <300 pg/mL have a 98% negat nadeem predi ctive value for exclu ding acute conge stive heart failu re (CHF) . NT-pr oBNP value s >450 pg/mL are consi stent with CHF in adult s <50 years of age. A diagn ostic cut-o ff of 900 pg/mL has been sugge sted in adult s >50 years of age in the absen ce of renal failu re. A cut-o ff of 1200 pg/mL for patie nts with an eGFR less than 60 yield s a diagn ostic sensi tivit y and speci ficit y of 89% and 72% for acute conge stive failu re. NOTE: Supra -phys iolog ic doses of Bioti n(B7) may cause false negat nadeem resul ts. Not Available [address] [place], [address] 11/18/2023 16:19:23 11/18/19 24 11/18/2023 TSH (W/RE F FT4) TSH (w/ref FT4) 0.49 uIU/m L 0.36-3 .74 normal Not Available [address] [place], [address] 11/18/2023 16:22:20 11/18/19 24 11/18/2023 URINA LYSIS color Yellow yellow Not Available [facility] [address] [place], [address] 11/18/2023 19:26:06 11/18/19 24 11/18/2023 URINA LYSIS clarity Clear clear Not Available [facility] [address] [place], [address] 11/18/2023 19:26:06 11/18/19 24 11/18/2023 URINA LYSIS specific gravity 1.015 1.005- 1.025 normal Not Available [address] [place], [address] 11/18/2023 19:26:06 11/18/19 24 11/18/2023 URINA LYSIS pH 6.5 5-8 normal Not Available [facility] [address] [place], [address] 11/18/2023 19:26:06 11/18/19 24 11/18/2023 URINA LYSIS leukocyte esterase Small negati ve abnormal Not Available [address] [place], [address] 11/18/2023 19:26:06 11/18/19 24 11/18/2023 URINA LYSIS nitrite Negati ve negati ve Not Available [address] [place], [address] 11/18/2023 19:26:06 11/18/19 24 11/18/2023 URINA LYSIS protein Negati ve mg/dL neg-tr patrick Not Available [address] [place], [address] 11/18/2023 19:26:06 11/18/19 24 11/18/2023 URINA LYSIS glucose Negati ve mg/dL negati ve Not Available [address] [place], [address] 11/18/2023 19:26:06 11/18/19 24 11/18/2023 URINA LYSIS ketones Negati ve mg/dL negati ve Not Available [address] [place], [address] 11/18/2023 19:26:06 11/18/19 24 11/18/2023 URINA LYSIS urobilinogen 0.2 mg/dL up to 0.2 Not Available [address] [place], [address] 11/18/2023 19:26:06 11/18/19 24 11/18/2023 URINA LYSIS bilirubin Negati ve negati ve Not Available [address] [place], [address] 11/18/2023 19:26:06 11/18/19 24 11/18/2023 URINA LYSIS blood Negati ve negati ve Not Available [address] [place], [address] 11/18/2023 19:26:06 11/18/19 24 11/18/2023 URINA LYSIS color Yellow yellow Not Available [facility] [address] [place], [address] 11/18/2023 20:30:25 11/18/19 24 11/18/2023 URINA LYSIS clarity Clear clear Not Available [facility] [address] [place], [address] 11/18/2023 20:30:25 11/18/19 24 11/18/2023 URINA LYSIS specific gravity 1.015 1.005- 1.025 normal Not Available [address] [place], [address] 11/18/2023 20:30:25 11/18/19 24 11/18/2023 URINA LYSIS pH 6.5 5-8 normal Not Available [facility] [address] [place], [address] 11/18/2023 20:30:25 11/18/19 24 11/18/2023 URINA LYSIS leukocyte esterase Small negati ve abnormal Not Available [address] [place], [address] 11/18/2023 20:30:25 11/18/19 24 11/18/2023 URINA LYSIS nitrite Negati ve negati ve Not Available [address] [place], [address] 11/18/2023 20:30:25 11/18/19 24 11/18/2023 URINA LYSIS protein Negati ve mg/dL neg-tr patrick Not Available [address] [place], [address] 11/18/2023 20:30:25 11/18/19 24 11/18/2023 URINA LYSIS glucose Negati ve mg/dL negati ve Not Available [address] [place], [address] 11/18/2023 20:30:25 11/18/19 24 11/18/2023 URINA LYSIS ketones Negati ve mg/dL negati ve Not Available [address] [place], [address] 11/18/2023 20:30:25 11/18/19 24 11/18/2023 URINA LYSIS urobilinogen 0.2 mg/dL up to 0.2 Not Available [address] [place], [address] 11/18/2023 20:30:25 11/18/19 24 11/18/2023 URINA LYSIS bilirubin Negati ve negati ve Not Available [address] [place], [address] 11/18/2023 20:30:25 11/18/19 24 11/18/2023 URINA LYSIS blood Negati ve negati ve Not Available [address] [place] [place], [address] 11/18/2023 20:30:25 11/18/19 24 11/18/2023 MICRO SCOPI C FINDI NGS WBC 3-5 hpf 0-5 Not Available Ethel green [address] [place], [address] 11/18/2023 20:30:25 11/18/19 24 11/18/2023 MICRO SCOPI C FINDI NGS RBC Negati ve hpf 0-2 Not Available Joel smith [address] [place], [address] 11/18/2023 20:30:25 11/18/19 24 11/18/2023 MICRO SCOPI C FINDI NGS epithelial cells Many hpf negati ve Not Available [address] [place], [address] 11/18/2023 20:30:25 11/18/19 24 11/18/2023 MICRO SCOPI C FINDI NGS bacteria Few hpf negati ve Not Available [address] [place], [address] 11/18/2023 20:30:25 11/18/19 24 11/18/2023 MICRO SCOPI C FINDI NGS crystals Negati ve hpf negati ve Not Available [address] [place], [address] 11/18/2023 20:30:25 11/18/19 24 11/18/2023 MICRO SCOPI C FINDI NGS mucus Trace negati ve Not Available [address] [place], [address] 11/18/2023 20:30:25 11/18/19 24 11/18/2023 MICRO SCOPI C FINDI NGS C S indicated? No Not Available [address] [place], [address] 11/18/2023 20:30:25 11/18/19 24 11/18/2023 TROPO LUCIA I troponin I < 50 NG/L < or =60 Not Available [address] [place], [address] 11/18/2023 22:25:47 11/18/19 24 11/18/2023 VENOU S BLOOD GAS pH (venous) 7.45 7.31-7 .41 high Not Available [address] [place], [address] 11/18/2023 23:12:54 11/18/19 24 11/18/2023 VENOU S BLOOD GAS pCO2 (venous) 44 mmHg 41-51 normal Not Available [address] [place], [address] 11/18/2023 23:12:54 11/18/19 24 11/18/2023 VENOU S BLOOD GAS pO2 (venous) 37 mmHg Not Available [address] [place], [address] 11/18/2023 23:12:54 11/18/19 24 11/18/2023 VENOU S BLOOD GAS TCO2 (venous) 28 mmol/ L 24-29 normal Not Available [address] [place], [address] 11/18/2023 23:12:54 11/18/19 24 11/18/2023 VENOU S BLOOD GAS HCO3 (venous) 30 mmol/ L 23-28 high Not Available [address] [place], [address] 11/18/2023 23:12:54 11/18/19 24 11/18/2023 VENOU S BLOOD GAS BE (venous) 6 mmol/ L -2-3 high Not Available [address] [place], [address] 11/18/2023 23:12:54 11/18/19 24 11/18/2023 VENOU S BLOOD GAS O2 sat (venous) 74 % Not Available [address] [place], [address] 11/18/2023 23:12:54 11/19/19 24 11/19/2023 COMPL ETE BLOOD COUNT W/DIF F WBC 7.07 10_3/ uL 4.4-10 .8 normal Not Available [address] [place], [address] 11/19/2023 07:03:22 11/19/19 24 11/19/2023 COMPL ETE BLOOD COUNT W/DIF F RBC 2.93 10_6/ uL 3.93-5 .22 low Not Available [address] [place], [address] 11/19/2023 07:03:22 11/19/19 24 11/19/2023 COMPL ETE BLOOD COUNT W/DIF F HGB 9.8 g/dL 11.2-1 5.7 low Not Available [address] [place], [address] 11/19/2023 07:03:22 11/19/19 24 11/19/2023 COMPL ETE BLOOD COUNT W/DIF F HCT 30.5 % 36.0-4 6.0 low Not Available [address] [place], [address] 11/19/2023 07:03:22 11/19/19 24 11/19/2023 COMPL ETE BLOOD COUNT W/DIF F MCV 104 fL 80-95 high Not Available [address] [place], [address] 11/19/2023 07:03:22 11/19/19 24 11/19/2023 COMPL ETE BLOOD COUNT W/DIF F MCH 33.4 pg 27.0-3 3.0 high Not Available [address] [place], [address] 11/19/2023 07:03:22 11/19/19 24 11/19/2023 COMPL ETE BLOOD COUNT W/DIF F MCHC 32.1 % 32.0-3 6.0 normal Not Available [address] [place], [address] 11/19/2023 07:03:22 11/19/19 24 11/19/2023 COMPL ETE BLOOD COUNT W/DIF F RDW 14.4 % 11.7-1 4.6 normal Not Available [address] [place], [address] 11/19/2023 07:03:22 11/19/19 24 11/19/2023 COMPL ETE BLOOD COUNT W/DIF F platelet count 112 10_3/ uL 130-40 0 low Not Available [address] [place], [address] 11/19/2023 07:03:22 11/19/19 24 11/19/2023 COMPL ETE BLOOD COUNT W/DIF F MPV 10.8 fL 8.0-11 .0 normal Not Available [address] [place], [address] 11/19/2023 07:03:22 11/19/19 24 11/19/2023 COMPL ETE BLOOD COUNT W/DIF F neutrophils % 74.3 % Not Available Crookthai avitia [address] [place], [address] 11/19/2023 07:03:22 11/19/19 24 11/19/2023 COMPL ETE BLOOD COUNT W/DIF F lymphocytes % 14.1 % Not Available [address] [place], [address] 11/19/2023 07:03:22 11/19/19 24 11/19/2023 COMPL ETE BLOOD COUNT W/DIF F monocytes % 6.5 % Not Available [address] [place], [address] 11/19/2023 07:03:22 11/19/19 24 11/19/2023 COMPL ETE BLOOD COUNT W/DIF F eosinophils % 4.4 % Not Available [address] [place], [address] 11/19/2023 07:03:22 11/19/19 24 11/19/2023 COMPL ETE BLOOD COUNT W/DIF F basophils % 0.4 % Not Available [address] [place], [address] 11/19/2023 07:03:22 11/19/19 24 11/19/2023 COMPL ETE BLOOD COUNT W/DIF F immature grans % 0.3 % Not Available [address] [place], [address] 11/19/2023 07:03:22 11/19/19 24 11/19/2023 COMPL ETE BLOOD COUNT W/DIF F nucleated RBC 0.0 % 0.0-0. 3 normal Not Available [address] [place], [address] 11/19/2023 07:03:22 11/19/19 24 11/19/2023 COMPL ETE BLOOD COUNT W/DIF F absolute neutrophil count 5.25 10_3/ uL 1.2-6. 7 normal Not Available [address] [place], [address] 11/19/2023 07:03:22 11/19/19 24 11/19/2023 COMPL ETE BLOOD COUNT W/DIF F absolute lymphocyte count 1.00 10_3/ uL 1.2-3. 4 low Not Available [address] [place], [address] 11/19/2023 07:03:22 11/19/19 24 11/19/2023 COMPL ETE BLOOD COUNT W/DIF F absolute monocyte count 0.46 10_3/ uL 0.1-0. 8 normal Not Available [address] [place], [address] 11/19/2023 07:03:22 11/19/19 24 11/19/2023 COMPL ETE BLOOD COUNT W/DIF F absolute eosinophil count 0.31 10_3/ uL 0.0-0. 7 normal Not Available [address] [place], [address] 11/19/2023 07:03:22 11/19/19 24 11/19/2023 COMPL ETE BLOOD COUNT W/DIF F absolute basophil count 0.03 10_3/ uL 0.0-0. 2 normal Not Available [address] [place], [address] 11/19/2023 07:03:22 11/19/19 24 11/19/2023 IRON AND IBCT iron 45 ug/dL 50-170 low Not Available Ethel green [address] [place], [address] 11/19/2023 07:24:25 11/19/19 24 11/19/2023 IRON AND IBCT total iron binding capacity 284 ug/dL 250-45 0 normal Not Available [address] [place], [address] 11/19/2023 07:24:25 11/19/19 24 11/19/2023 IRON AND IBCT transferrin sat 16 % 15-50 normal Not Available Ariela avitia [address] [place], [address] 11/19/2023 07:24:25 11/19/19 24 11/19/2023 BASIC METAB OLIC PANEL calcium 8.5 mg/dL 8.5-10 .1 normal Not Available [address] [place], [address] 11/19/2023 07:49:36 11/19/19 24 11/19/2023 BASIC METAB OLIC PANEL glucose 93 mg/dL 74-106 normal Not Available Ethel green [address] [place], [address] 11/19/2023 07:49:36 11/19/19 24 11/19/2023 BASIC METAB OLIC PANEL BUN 12 mg/dL 7-18 normal Not Available Ethel green [address] [place], [address] 11/19/2023 07:49:36 11/19/19 24 11/19/2023 BASIC METAB OLIC PANEL creatinine 0.8 mg/dL 0.55-1 .02 normal Not Available [address] [place] [place], [address] 11/19/2023 07:49:36 11/19/19 24 11/19/2023 BASIC METAB OLIC PANEL estimated GFR 75.37 mL/min /1.73m 2 The eGFR is calcu lated from a serum creat inine using the CKD-E PI 2020 equat ion. Other varia bles requi red for the equat ion are gende r and age; this equat ion does not inclu de a race coeff icien t. This equat ion has simil ar overa ll perfo rmanc e to previ ous equat ions excep t value s may diffe r, in parti cular , in patie nts with highe r value s of eGFR and young er-ag ed adult s. Not Available [address] [place], [address] 11/19/2023 07:49:36 11/19/19 24 11/19/2023 BASIC METAB OLIC PANEL sodium 147 mmol/ L 136-14 5 high Not Available [address] [place], [address] 11/19/2023 07:49:36 11/19/19 24 11/19/2023 BASIC METAB OLIC PANEL potassium 3.2 mmol/ L 3.5-5. 1 low Not Available [address] [place], [address] 11/19/2023 07:49:36 11/19/19 24 11/19/2023 BASIC METAB OLIC PANEL chloride 107 mmol/ L 98-107 normal Not Available [address] [place], [address] 11/19/2023 07:49:36 11/19/19 24 11/19/2023 BASIC METAB OLIC PANEL CO2 31.2 mmol/ L 21.0-3 2.0 normal Not Available [address] [place], [address] 11/19/2023 07:49:36 11/19/19 24 11/19/2023 BASIC METAB OLIC PANEL anion gap 8.8 mmol/ L 3-11 normal Not Available [address] [place], [address] 11/19/2023 07:49:36 11/19/19 24 11/19/2023 DANIEL TIN ferritin 169 NG/mL 8-252 normal Not Available [address] [place], [address] 11/19/2023 07:49:36 11/19/19 24 11/19/2023 MAGNE SIUM magnesium 1.8 mg/dL 1.8-2. 4 normal Not Available [address] [place], [address] 11/19/2023 07:49:37 11/19/19 24 11/19/2023 VITAM IN B12 vitamin B12 1124 pg/mL 193-98 6 high Not Available [address] [place] [place], [address] 11/19/2023 07:49:37 11/19/19 24 11/19/2023 FOLAT E folate 19.3 NG/mL 8.6-20 .0 normal Not Available [address] [place], [address] 11/19/2023 07:49:37 11/19/19 24 11/20/2023 TRANS DANIEL N transferrin 188 mg/dL 201-35 2 abnormal Test perfo rmed or refer red by [facility] [address] [place] [address] Not Available [address] [place], [address] 11/23/2023 12:15:30 11/20/19 24 11/20/2023 BASIC METAB OLIC PANEL calcium 8.9 mg/dL 8.5-10 .1 normal Not Available [address] [place], [address] 11/20/2023 07:12:43 11/20/19 24 11/20/2023 BASIC METAB OLIC PANEL glucose 115 mg/dL 74-106 high Not Available Ethel green [address] [place], [address] 11/20/2023 07:12:43 11/20/19 24 11/20/2023 BASIC METAB OLIC PANEL BUN 19 mg/dL 7-18 high Not Available Ethel green [address] [place], [address] 11/20/2023 07:12:43 11/20/19 24 11/20/2023 BASIC METAB OLIC PANEL creatinine 1.0 mg/dL 0.55-1 .02 normal Not Available [address] [place], [address] 11/20/2023 07:12:43 11/20/19 24 11/20/2023 BASIC METAB OLIC PANEL estimated GFR 57.66 mL/min /1.73m 2 The eGFR is calcu lated from a serum creat inine using the CKD-E PI 2020 equat ion. Other varia bles requi red for the equat ion are gende r and age; this equat ion does not inclu de a race coeff icien t. This equat ion has simil ar overa ll perfo rmanc e to previ ous equat ions excep t value s may diffe r, in parti cular , in patie nts with highe r value s of eGFR and young er-ag ed adult s. Not Available [address] [place], [address] 11/20/2023 07:12:43 11/20/19 24 11/20/2023 BASIC METAB OLIC PANEL sodium 140 mmol/ L 136-14 5 normal Not Available [address] [place], [address] 11/20/2023 07:12:43 11/20/19 24 11/20/2023 BASIC METAB OLIC PANEL potassium 3.6 mmol/ L 3.5-5. 1 normal Not Available [address] [place], [address] 11/20/2023 07:12:43 11/20/19 24 11/20/2023 BASIC METAB OLIC PANEL chloride 100 mmol/ L 98-107 normal Not Available [address] [place], [address] 11/20/2023 07:12:43 11/20/19 24 11/20/2023 BASIC METAB OLIC PANEL CO2 33.2 mmol/ L 21.0-3 2.0 high Not Available [address] [place], [address] 11/20/2023 07:12:43 11/20/19 24 11/20/2023 BASIC METAB OLIC PANEL anion gap 6.8 mmol/ L 3-11 normal Not Available [address] [place], [address] 11/20/2023 07:12:43 12/02/19 24 12/02/2023 BASIC METAB OLIC PANEL calcium 9.8 mg/dL 8.5-10 .1 normal Not Available [address] [place], [address] 12/02/2023 16:25:21 12/02/19 24 12/02/2023 BASIC METAB OLIC PANEL glucose 104 mg/dL 74-106 normal Not Available Ethel green [address] [place], [address] 12/02/2023 16:25:21 12/02/19 24 12/02/2023 BASIC METAB OLIC PANEL BUN 20 mg/dL 7-18 high Not Available Ethel green [address] [place], [address] 12/02/2023 16:25:21 12/02/19 24 12/02/2023 BASIC METAB OLIC PANEL creatinine 1.1 mg/dL 0.55-1 .02 high Not Available [address] [place], [address] 12/02/2023 16:25:21 12/02/19 24 12/02/2023 BASIC METAB OLIC PANEL estimated GFR 51.43 mL/min /1.73m 2 The eGFR is calcu lated from a serum creat inine using the CKD-E PI 2020 equat ion. Other varia bles requi red for the equat ion are gende r and age; this equat ion does not inclu de a race coeff icien t. This equat ion has simil ar overa ll perfo rmanc e to previ ous equat ions excep t value s may diffe r, in parti cular , in patie nts with highe r value s of eGFR and young er-ag ed adult s. Not Available [address] [place], [address] 12/02/2023 16:25:21 12/02/19 24 12/02/2023 BASIC METAB OLIC PANEL sodium 143 mmol/ L 136-14 5 normal Not Available [address] [place], [address] 12/02/2023 16:25:21 12/02/19 24 12/02/2023 BASIC METAB OLIC PANEL potassium 4.6 mmol/ L 3.5-5. 1 normal Not Available [address] [place], [address] 12/02/2023 16:25:21 12/02/19 24 12/02/2023 BASIC METAB OLIC PANEL chloride 106 mmol/ L 98-107 normal Not Available [address] [place], [address] 12/02/2023 16:25:21 12/02/19 24 12/02/2023 BASIC METAB OLIC PANEL CO2 29.1 mmol/ L 21.0-3 2.0 normal Not Available [address] [place], [address] 12/02/2023 16:25:21 12/02/19 24 12/02/2023 BASIC METAB OLIC PANEL anion gap 7.9 mmol/ L 3-11 normal Not Available [address] [place], [address] 12/02/2023 16:25:21 12/02/19 24 12/02/2023 MAGNE SIUM magnesium 1.8 mg/dL 1.8-2. 4 normal Not Available [address] [place], [address] 12/02/2023 16:25:22 12/02/19 24 12/02/2023 NT-IA OBNP nt-probnp 2190 pg/mL <300 high NT-pr oBNP value s <300 pg/mL have a 98% negat nadeem predi ctive value for exclu ding acute conge stive heart failu re (CHF) . NT-pr oBNP value s >450 pg/mL are consi stent with CHF in adult s <50 years of age. A diagn ostic cut-o ff of 900 pg/mL has been sugge sted in adult s >50 years of age in the absen ce of renal failu re. A cut-o ff of 1200 pg/mL for patie nts with an eGFR less than 60 yield s a diagn ostic sensi tivit y and speci ficit y of 89% and 72% for acute conge stive failu re. NOTE: Supra -phys iolog ic doses of Bioti n(B7) may cause false negat nadeem resul ts. Not Available [facility] (Registration ) [address] [place] [address] [place], [address], 12/02/2023 16:25:22 12/02/19 24 12/02/2023 COMPL ETE BLOOD COUNT NO DIFF WBC 7.43 10_3/ uL 4.4-10 .8 normal Not Available [address] [place], [address] 12/02/2023 16:35:23 12/02/19 24 12/02/2023 COMPL ETE BLOOD COUNT NO DIFF RBC 3.18 10_6/ uL 3.93-5 .22 low Not Available [address] [place], [address] 12/02/2023 16:35:23 12/02/19 24 12/02/2023 COMPL ETE BLOOD COUNT NO DIFF HGB 10.6 g/dL 11.2-1 5.7 low Not Available [address] [place], [address] 12/02/2023 16:35:23 12/02/19 24 12/02/2023 COMPL ETE BLOOD COUNT NO DIFF HCT 33.5 % 36.0-4 6.0 low Not Available [address] [place], [address] 12/02/2023 16:35:23 12/02/19 24 12/02/2023 COMPL ETE BLOOD COUNT NO DIFF MCV 105 fL 80-95 high 1+ macro cytos is Not Available [address] [place] [place], [address] 12/02/2023 16:35:23 12/02/19 24 12/02/2023 COMPL ETE BLOOD COUNT NO DIFF MCH 33.3 pg 27.0-3 3.0 high Not Available [address] [place] [place], [address] 12/02/2023 16:35:23 12/02/19 24 12/02/2023 COMPL ETE BLOOD COUNT NO DIFF MCHC 31.6 % 32.0-3 6.0 low Not Available [address] [place] [place], [address] 12/02/2023 16:35:23 12/02/19 24 12/02/2023 COMPL ETE BLOOD COUNT NO DIFF RDW 13.3 % 11.7-1 4.6 normal Not Available [address] [place] [place], [address] 12/02/2023 16:35:23 12/02/19 24 12/02/2023 COMPL ETE BLOOD COUNT NO DIFF platelet count 140 10_3/ uL 130-40 0 normal Not Available [address] [place] [place], [address] 12/02/2023 16:35:23 12/02/19 24 12/02/2023 COMPL ETE BLOOD COUNT NO DIFF MPV 11.8 fL 8.0-11 .0 high Not Available [address] [place], [address] 12/02/2023 16:35:23 10/14/19 24 10/14/2023 elect roxana diogr am No observ ation record ed. [facility] [address] [place], [address], 10/14/2023 11:56:20 10/14/19 elect rocar diogr am No observ ation record ed. Not Available 2023 10:55:07 11/04/19 24 10/14/2023 rhyth m strip , EKG* No observ ation record ed. [email or web address] Not Available 2023 10:18:08 11/18/19 24 11/18/2023 US, duple x, lower extre mity Patien t Name: Rema Olson Unit #: [id number] Loc: ER Sonal salazar [facility] er: Braydon Doyle Accoun t #: [id number] Status : REG ER Primar y Care Provid er: Erich Her M.D. Date of Exam: Sex: F [...] spectr al Dopple r analys is. COMPAR GIULIANA: No exams were availa ble for compar giuliana FINDIN GS: The bilate ral common femora l, femora l and poplit eal veins demons trate normal compre ssibil ity, augmen tation , and color Dopple r. The furnace combustion tester ior tibial veins are patent . IMPRES JASON: Right: Negati ve for DVT Left: Negati ve for DVT DATA REPOSI TORY: Ordere d By: Braydon Doyle CC: ------ ------ ------ ------ ------ ------ ------ ------ ------ ------ ------ ------ - Dictat ed By: Lázaro Titus 1611 1611 Transc ribed By: Haim Jesus 1611 This is privil eged, confid ential inform ation intend ed only for the provid er named. Any use or distri bution by any person other than this provid er is strict ly prohib ited. If you receiv e this report in error, please notify us immedi ately at and return the origin al report to us at the addres s above. Thank- you. [facility] [address], [place], [address] 11/18/2023 16:48:49 11/18/19 24 11/18/2023 CT imagi ng repor t Tika t Name: Rema Olson Unit #: [id number] Loc: ER Orderi ng Provid er: Braydon Doyle Accoun t #: [id number] Status : REG ER Primar y Care Provid er: Erich Her M.D. Date of Exam: Sex: F [...] [address] volume :100 ml COMPAR GIULIANA: CT CT CHEST/ ABD WO from 2021 [...] interl obular septal thicke jama greate r furnace combustion tester iorly which could indica te mild CHF. No consol idatio n or domina nt measur able mass. Pleura : Small left pleura l effusi on. Heart: The heart is modera tely dilate d. Backpackers Manager ior perica rdial effusi on. Minima l [...] Soft tissue s: Unrema rkable . IMPRES JASON: No eviden ce of pulmon david emboli sm. Cardio megaly . Small perica rdial effusi on seen furnace combustion tester iorly. Small left pleura l effusi on. Mild pulmon david edema. RADIAT ION DOSE DELIVE RED: Total DLP DATA REPOSI TORY: All CT scans at this [facility] are submit mar to the [facility] al Radiol ogy Data Regist ry (NRDR) Dose Index Regist ry (DIR) with the [place] [employer] Radiol ogy (ACR). RADIAT ION OPTIMI ZATION : All CT scans at this [facility] use at least one of these dose optimi zation techni ques: automa mar exposu re contro l; mA and/or kV adjust ment per patien t size (inclu perla target ed exams where dose is matche d to clinic al indica tion); or iterat nadeem recons tructi on. 014: Total DLP = 0.00 mGy-cm Ordere d By: Braydon Doyle CC: ------ ------ ------ ------ ------ ------ ------ ------ ------ ------ ------ ------ ---- Dictat ed By: Lázaro Titus [id number] Transc ribed By: Haim Jesus 1846 This is privil eged, confid ential inform ation intend ed only for the provid er named. Any use or distri bution by any person other than this provid er is strict ly prohib ited. If you receiv e this report in error, please notify us immedi ately at and return the origin al report to us at the addres s above. Thank- you. [facility] [address], [place], [address] 11/19/2023 12:12:11 11/19/19 24 11/19/2023 ultra sound imagi ng repor t Tika hackett Name: Rema Olson Unit #: [id number] Loc: MS Sonal salazar Provid er: Huseyin Bolaños M.D. Accoun t #: [id number] Status : ADM IN Primar y Care Provid er: Erich Her M.D. Date of Exam: Sex: F Admiss ion Date: : 1945 Age: 78 ------ ------ --- APPROV ED REPORT ------ ------ -- EXAM: Compre hensiv e 2D, Dopple r, and color- flow Echoca rdiogr yoan hackett Locati on: In-Pat ient Room/B ed: 212 Sonogr apher: Radha Greenberg RDCS (AE) Indica tions: CHF, Perica rdial effusi on Other Inform ation Study Qualit y: Adequa te Conclu jason Mild concen tric left ventri cular hypert rophy. Ejecti on fracti on is 55%. Wall motion is grossl y normal Normal right ventri cular size and functi on Left atrium is modera tely dilate d. Right atrium is mildly dilate d There is a biopro stheti c aortic valve. Mean gradie nt is 6 mmHg. There is no aortic regurg itatio n Normal mitral valve with modera te regurg itatio n Normal tricus pid valve with mild regurg itatio n. Estima mar right ventri cular systol ic pressu re is 22 mmHg Ascend ing aorta measur es 3.77 cm No signif icant perica rdial effusi on Wall motion Left Ventri deion The left ventri deion is normal size. The overal l left ventri cular systol ic functi on appear s normal . Arrhyt hmia throug hout exam, beat to beat variat ion. Mild concen tric left ventri cular hypert rophy. Region al wall motion is not well visual ized but grossl y normal . There is no ventri cular septal defect visual ized. LVEF is 55%. Right Ventri deion Right ventri deion is grossl y normal in size. The right ventri cular systol ic functi on is normal . Pacema ker lead is presen t in the right ventri deion. Atria Left atrium is modera tely dilate d. Right atrium is mildly dilate d. The intera trial septum is intact with no eviden ce for an atrial septal defect . Aortic Valve No aortic regurg itatio n is presen t. TAVR aortic valve. Mitral Valve The mitral valve is normal in struct ure. No eviden ce of mitral valve stenos is. Modera te mitral regurg itatio n. Tricus pid Valve The tricus pid valve is normal in struct ure. There is no tricus pid valve stenos is. Mild tricus pid regurg itatio n. The RVSP is 22.4_ mmHg. Pulmon ic Valve The pulmon david valve is normal in struct ure. There is no pulmon ic valvul ar stenos is. Trace pulmon ic regurg itatio n. Great Vessel s The aortic root is normal in size. The ascend ing aorta is mildly dilate d. Aortic arch is not well visual ized. IVC is normal in size and collap ses >50% with inspir ation. Perica rdium There is no perica rdial effusi on. 2D Dimens ions IVSD d PLAX 1.10 cm F: 0.6-1. 0 Ao Root d 2.11 cm F: 2.7 - 3.3 LVPW d PLAX 1.10 cm F: 0.6 - 1.0 Ao Asc Diam d 3.77 cm F: 2.3 - 3.1 LVID d PLAX 5.06 cm F: 3.8 - 5.2 LVDs 3.61 cm F: 2.2 - 3.5 LV EF Teichh olz 54.9 % FS 28.63 % LV EDV (Teich ) 121.8 mL LV ESV (Teich ) 54.9 mL M-Mode TAPSE 1.71 cm (M/F) >1.7 LA Volume LA Length A4C 6.1 cm LA Length A2C 6.1 cm LA Area A4C s 26.21 cm2 LA Area A2C s 27.35 cm2 LA Vol A4C A-L 95.20 mL LA Vol A2C A-L 103.99 mL LA Vol Biplan e A-L 99.6 mL LA Vol/BS A A4C A-L LA Vol/BS A A2C A-L LA Vol/BS A BP A-L 52.7 mL/m2 LA Vol A4C MOD 90.0 mL LA Vol A2C MOD 97.7 mL LA Vol BP MOD 93.6 mL RA Volume RA Area A4C 18.2 cm2 RA ESV A4C (A-L) 49.4mL RA Vol/BS A A4C A-L RA Length A4C 5.7 cm RA ESV A4C (MOD) 47.7mL LV Diasto logy MV E Vmax 1.00 (0.4-1 .3 m/s) Aortic Valve AoV Vmax 1.58 m/s LVOT Vmax 0.98 m/s AoV Peak Grad 10.0 mmHg LVOT Peak Grad 3.8 mmHg AoV Area (Vmax) 1.99 cm2 LVOT VTI 0.160 m AoV VTI 0.281 m LVOT Mean Beto. 0.70 m/s AoV Mean Beto. 1.16 m/s LVOT Mean Grad 2.2 mmHg AoV Mean Grad 6.1 mmHg LVOT SV 51.50 mL AoV Area (VTI) 1.83 cm2 LVOT Diam s 2.00 cm Veloci ty Ratio 0.62 Mitral Valve MV Vmax TIPS 1.00 m/s MV Mean Grad 1.9 (<2mmH g) MV Area PHT 5.35 cm2 MV VTI 0.234 m Pulmon david Valve PV Vmax 0.59 (0.5-1 .5 m/s) RVOT Vmax 0.46 m/s PV Peak Grad 1.4 mmHg RVOT Peak Gr. 0.8 mmHg PV Mean Beto 0.46 m/s RVOT VTI 0.092 m PV Mean Grad 0.9 mmHg RVOT Mean Gr. 0.5 mmHg Tricus pid Valve RA Pressu re 3.00 mmHg TR Vmax 2.20 m/s TV S' 0.13 m/s TR Peak Grad 19.4 mmHg RVSP (TR) 22.4 mmHg Ordere d By: Huseyin Bolaños M.D. CC: ------ ------ ------ ------ ------ ------ ------ ------ ------ ------ ------ ------ - Dictat ed By: Harmony Maravilla M.D. 1150 [id number] Transc ribed By: Harmony Maravilla MD 1150 This is privil eged, confid ential inform ation intend ed only for the provid er named. Any use or distri bution by any person other than this provid er is strict ly prohib ited. If you receiv e this report in error, please notify us immyang cuellar at [phone] and return the origin al report to us at the addres s above. Thank- you. [facility] [address], [place], [address] 11/19/2023 12:12:11 01/18/20 24 11/15/2018 imagi ng/di agnos tic resul t No observ ation record ed. Not Available 01/17 00:42:55 01/18/20 24 11/15/2018 imagi ng/di agnos tic resul t No observ ation record ed. Not Available 01/17 00:42:57 01/18/20 24 01/18/2020 imagi ng/di agnos tic resul t No observ ation record ed. Not Available 01/17 00:43:00 01/18/20 24 11/15/2018 imagi ng/di agnos tic resul t No observ ation record ed. Not Available 01/17 00:43:04 01/18/20 24 06/19/2021 imagi ng/di agnos tic resul t No observ ation record ed. Not Available 01/17 00:43:05 01/18/20 24 11/15/2020 DEXA No observ ation record ed. Not Available 01/17 00:43:12 01/18/20 24 03/18/2021 imagi ng/di agnos tic resul t No observ ation record ed. Not Available 01/17 00:45:06 01/18/20 24 10/07/2021 imagi ng/di agnos tic resul t No observ ation record ed. Not Available 01/17 00:45:38 01/18/20 24 03/10/2022 imagi ng/di agnos tic resul t No observ ation record ed. Not Available 01/17 00:45:46 01/18/20 24 08/24/2021 imagi ng/di agnos tic resul t No observ ation record ed. Not Available 01/17 00:47:32 01/18/20 24 03/09/2022 imagi ng/di agnos tic resul t No observ ation record ed. Not Available 01/17 00:47:33 01/18/20 24 03/10/2022 imagi ng/di agnos tic resul t No observ ation record ed. Not Available 01/17 00:47:34 01/18/20 24 08/08/2021 XR, chest No observ ation record ed. Not Available 01/17 00:48:31 01/18/20 24 11/09/2018 bone densi ty No observ ation record ed. Not Available 01/17 00:48:33 01/18/20 24 05/31/2019 MAMMO , diagn ostic No observ ation record ed. Not Available 01/17 00:48:34 01/18/20 24 05/22/2020 MAMMO , diagn ostic No observ ation record ed. Not Available 01/17 00:48:36 01/18/20 24 06/11/2021 MAMMO , diagn ostic No observ ation record ed. Not Available 01/17 00:48:37 01/18/20 24 06/10/2022 MAMMO , scree jama No observ ation record ed. Not Available 01/17 00:48:42 01/18/20 24 06/25/2022 MAMMO , scree jama No observ ation record ed. Not Available 01/17 00:48:43 01/18/20 24 03/23/2020 MRI, lumba r spine No observ ation record ed. Not Available 01/17 00:48:46 01/18/20 24 01/02/2020 XR, knee No observ ation record ed. Not Available 01/17 00:49:00 01/18/20 24 08/25/2021 XR, knee No observ ation record ed. Not Available 01/17 00:49:01 01/18/20 24 07/05/2020 XR, lumba r spine No observ ation record ed. Not Available 01/17 00:49:03 01/18/20 24 03/10/2022 imagi ng/di agnos tic resul t No observ ation record ed. Not Available 01/17 00:49:06 01/18/20 24 08/08/2021 imagi ng/di agnos tic resul t No observ ation record ed. Not Available 01/17 00:49:07 01/18/20 24 03/10/2022 imagi ng/di agnos tic resul t No observ ation record ed. Not Available 01/17 00:49:09 01/18/20 24 09/03/2021 imagi ng/di agnos tic resul t No observ ation record ed. Not Available 01/17 00:49:10 Result Notes None recorded. 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 EVIE shaw, [facility] 4 10:29:59 Essentia l hyperten jason 99945212 Active 1959 EVIE shaw, [facility] 4 10:29:36 Hyperlip idemia 66904889 Active 1959 on statin MD [address], [place], [address] , [facility] 4 20:35:18 Spinal stenosis of lumbar region 73108829 Active 2012 s/p lumbar foramino parish L4 MD [address], [place], [address] , [facility] 4 20:36:41 Sleep apnea 28004352 Active 2012 on CPAP MD [address], [place], [address] , [facility] 4 20:39:31 Gastroes ophageal reflux disease without esophagi tis 516915789 Completed 195908/12/2023 Removal Reason: resolved with surgical repair of HH MD [address], [place], [address] , [facility] 4 10:41:24 Family history of malignan t neoplasm of digestiv e organ 716662609 Active [address], [place], [address] , [facility] 4 20:37:03 Paresthe samir 25050737 Completed 201412/01/2014 11/28/19 15 - Comments only - Erich Her MD - check B12 and folate Problem Code: R20.2; Problem Code Type: ICD-10; Not Available [facility] 3 05:53:48 Adult health examinat ion Active [address], [place], [address] , [facility] 4 20:33:34 Pre-surg ruben evaluati on Completed 201510/03/2015 09/03/19 16 - Comments only - Erich Her MD - Her chronic medical problems are all stable. She has no chest pain, and no symptoms of signific ant aortic stenosis or heart failure. She is already on chronic betabloc kers which should be continue d in the cinthia operativ e time. She is stable for stated surgery. Problem Code: Z01.818; Problem Code Type: ICD-10; Not Available [facility] 3 05:53:48 Localize d edema 351107389 Completed 201501/29/2016 12/13/19 16 - Comments only - Erich Her MD - and some on left as well, will check BMP. 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 Referral is made to physical therapy. She will continue on the increase d dose of Naprosyn and gabapent in, and once the pain improves we will start to wean back the gabapent in to 300 mg 3 times daily She has enough Ultram from her discharg e for now. Problem Code: M79.605; Problem Code Type: ICD-10; EVIE shaw [place] - [facility] 4 10:32:00 Epidermo id cyst of skin 842987226 Completed 201611/14/2016 10/17/19 17 - Comments only - Erich Her MD - Inflamed , I suggeste d hot packing, if not resolvin g we can refer to Dr. Nusrat esparza for removal. Problem Code: L72.3; Problem Code Type: ICD-10; Not Available [facility] 3 05:53:49 Chronic ulcer of foot 599804245 Completed 201601/16/2017 12/18/19 17 - Comments only - Erich Her MD - Due to injury. This does appear to have some granulat ion tissue and to be healing. She is given a prescrip tion for Keflex to take only if erythema seems to be extendin g. Problem Code: L97.509; Problem Code Type: ICD-10; Not Available [facility] 3 05:53:49 Diarrhea 43696584 Completed 201602/10/2017 02/05/20 17 - Comments only - Erich Her MD - Persiste nt over several months, we will collect stool for C. difficil e, Giardia, culture, and lactofer rin Problem Code: R19.7; Problem Code Type: ICD-10; MD [address], [place], [address] , [facility] - [facility] 4 21:03:03 Polyp of cervix 58958414 Active 2016 EVIE shaw, [facility]. 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 6 mm PT1NO E2P2 poistive , HER2 negative ERICH HER MD [address], [place], [address] [facility], [facility]. 4 20:38:49 Pain in left lower limb 551858867 Active 2016 EVIE HOOPER colin, [facility] 4 10:32:00 Pain in thoracic spine 748211061 Active 2016 EVIE HOOPER colin, [facility] 4 10:32:06 Spasm 48226415 Active 2017 EVIE HOOPER colin, [facility] 4 10:33:28 Abdomina l distensi on, gaseous 282000100 Completed 201703/08/2018 Problem Code: R14.0; Problem Code Type: ICD-10; Not Available [facility] 3 05:53:50 Cellulit is of toe 30989587 Completed 201808/12/2018 Problem Code: L03.039; Problem Code Type: ICD-10; Not Available [facility] 3 05:53:51 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 2018 Danicaher Isidro shaw, [facility] 4 14:36:02 Tachycar lea 1449569 Completed 201811/25/2018 Problem Code: R00.0; Problem Code Type: ICD-10; Not Available [facility] 3 05:53:51 Pre-surg ruben evaluati on Completed 201811/25/2018 Problem Code: Z01.818; Problem Code Type: ICD-10; Not Available [facility] 3 05:53:51 Iron deficien cy anemia 25961328 Active 2019 on oral iron- elevated MCV: normal B12 2021, normal folate 2018 IV iron 2023 EGD 01/2022 paraesop hageal hernia (since repaired ) colo 03/[address], [place], [address] , [facility] 4 17:37:19 Lumbago with sciatica 368124855 Completed 201903/16/2020 02/24/20 20 - Comments only - Vy Raphael Zi [employer]CE[employer] 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 No red flags on physical exam, VS normal. As she will be travelin g by plane, prescrib ed tramadol 50 mg - 2 tablets only for pain during travel (reviewe d risks with this medicati on, includin g increase d risk of fall and sedation - she will be using a wheelcha ir when travelin g in airport with assistan ce by airline staff); also recommen ded use of lidocain e patch during flight. Reviewed proper tylenol dosing and risks with this medicati on. Provided handout on exercise s to be done on flight. Advised use of heating pad for comfort (not to be used with lidocain e patches) and exercise /stretch es as tolerate d. Referral made to Ricardo ESTRELLA. Reviewed red flags requirin g emergenc y care. Problem Code: M54.40; Problem Code Type: ICD-10; Not Available [facility] 3 05:53:52 Right side sciatica 56964457566 9101 Active 2019 EVIE shaw, [facility] 4 10:33:09 Left side sciatica 75186174996 9104 Active [address], [place], [address] , [facility] 4 17:20:20 Diaphrag matic hernia 61468778 Completed 202108/11/2023 Removal Reason: s/p repair MD [address], [place], [address] , [facility] 4 20:50:39 History of SARS-CoV -2 [id number] 1426283 Completed 202104/04/2022 03/21/20 22 - Comments only - Erich Her MD - testing is negative today in the office. Still some fatigue but otherwis e recoveri ng. Did get MAB. Already had covid bivalent booster prior to illness Problem Code: Z86.16; Problem Code Type: ICD-10; Not Available [facility] 3 05:53:53 Diarrhea 26221327 Completed 202104/18/2022 Problem Code: R19.7; Problem Code Type: ICD-10; MD [address], [place], [address] , [facility] 4 21:03:02 Screenin g mammogra phy Completed 202208/11/[address], [place], [address] , [facility] 4 20:36:56 Carpal tunnel syndrome of left wrist 77241318643 9102 Completed 202201/23/2023 Problem Code: G56.02; Problem Code Type: ICD-10; Not Available [facility] 4 05:37:46 Diarrhea 90623643 Active 2022 started colestip ol 01/[address], [place], [address] , [facility] 4 21:03:02 Carpal tunnel syndrome of right wrist 63525423984 9108 Completed 201803/19/2020 Problem Code: G56.01; Problem Code Type: ICD-10; Not Available [facility] 3 05:53:55 Pain of left knee joint 76726674157 4107 Completed 202107/30/2022 Problem Code: M25.562; Problem Code Type: ICD-10; Not Available [facility] 3 05:53:55 Hypersom korina 59085991 Completed 201311/27/2014 Problem Code: 780.54; Problem Code Type: ICD-9; Not Available [facility] 3 05:53:56 Screenin g for disorder Completed 201909/11/2021 Problem Code: Z13.9; Problem Code Type: ICD-10; Not Available [facility] 3 05:53:56 Anemia 751417565 Completed 201903/19/2020 Problem Code: D64.9; Problem Code Type: ICD-10; Not Available [facility] 3 05:53:56 Long-ter m current use of anticoag ulant 068952694 Completed 201709/01/2018 Problem Code: Z79.01; Problem Code Type: ICD-10; Not Available [facility] 3 05:53:57 Chronic rhinitis 33379258 Completed 202108/12/2021 Problem Code: J31.0; Problem Code Type: ICD-10; Not Available [facility] 3 05:53:57 Impaired fasting glycemia 595175255 Completed 201401/28/2023 Not Available [facility] 3 05:53:57 Fatigue 39514887 Completed 201903/19/2020 Problem Code: R53.83; Problem Code Type: ICD-10; Not Available [facility] 3 05:53:58 Upper respirat ory tract infectio n caused by Influenz a A 05516545165 9104 Completed 201707/02/2017 Problem Code: J09.x2; Problem Code Type: ICD-10; Not Available [facility] 3 05:53:59 Diarrhea 22689562 Completed 201709/01/2018 ERICH HER MD [address], [place], [address] , [facility]. 4 21:03:02 Acute upper respirat ory infectio n 95522642 Completed 202108/26/2021 Problem Code: J06.9; Problem Code Type: ICD-10; Not Available [facility] 3 05:53:59 Pain in right foot 42958377937 9107 Completed 202207/30/2022 Problem Code: M79.671; Problem Code Type: ICD-10; Not Available [facility] 3 05:54:00 Breast composit ion 681683751 Completed 201601/28/2023 Not Available [facility] 3 05:54:00 Changes in skin texture 801183580 Completed 202207/30/2022 Problem Code: R23.4; Problem Code Type: ICD-10; Not Available [facility] 3 05:54:01 Spasm 20720484 Completed 201603/23/2017 Problem Code: R25.2; Problem Code Type: ICD-10; EVIE shaw [facility] 4 10:33:28 Hyperten sive disorder 32948278 Completed 11/28/19 15 - Comments only - Erich Her MD - [facility] ed, no change in medicati ons Not Available [facility] 3 05:54:03 Arthralg ia of the ankle and/or foot 685308400 Completed 201501/30/2016 Problem Code: M25.571; Problem Code Type: ICD-10; Not Available [facility] 3 05:54:03 Dyspnea 949309517 Completed 201903/19/2020 Problem Code: R06.02; Problem Code Type: ICD-10; Danica shaw [facility], [facility]. 4 14:39:47 Trigger finger of right hand [id number] 372440 Completed 201803/19/2020 Problem Code: M65.341; Problem Code Type: ICD-10; Not Available [facility] 3 05:54:06 Cough 71817579 Completed 202108/12/2021 Problem Code: R05.1; Problem Code Type: ICD-10; Not Available [facility] 3 05:54:06 At risk - finding 680005132 Completed 201811/11/2018 Problem Code: Z91.89; Problem Code Type: ICD-10; Not Available [facility] 3 05:54:06 Cough 04730066 Completed 201706/15/2017 Problem Code: R05; Problem Code Type: ICD-10; Not Available [facility] 3 05:54:07 Preopera tive cardiova scular examinat ion Completed 202112/18/2021 Problem Code: Z01.810; Problem Code Type: ICD-10; Not Available [facility] 3 05:54:08 Arterial bruit 19634730 Completed 202109/11/2021 Not Available [facility] 3 05:54:08 Gastroes ophageal reflux disease 069412200 Completed Not Available [facility] 3 05:54:09 Imaging of musculos keletal system abnormal 887782502 Completed 201603/23/2017 Problem Code: R93.7; Problem Code Type: ICD-10; Not Available [facility] 3 05:54:10 Blood glucose outside referenc e range 453572604 Completed 201503/20/2016 Problem Code: R73.09; Problem Code Type: ICD-10; Not Available [facility] 3 05:54:10 Abdomina l aortic aneurysm 887289171 Completed 195912/04/2014 Not Available [facility] 3 05:54:11 Lung field abnormal 431793329 Completed 202109/11/2021 Problem Code: R91.8; Problem Code Type: ICD-10; Not Available [facility] 3 05:54:11 Ingrowin g nail 065509636 Completed 201503/23/2017 Problem Code: L60.0; Problem Code Type: ICD-10; Not Available [facility] 3 05:54:11 Hypokale karyn 70114168 Completed 201504/17/2016 Problem Code: E87.6; Problem Code Type: ICD-10; Not Available [facility] 05:54:12 Spasm 70421481 Completed 202201/23/2023 Problem Code: M62.838; Problem Code Type: ICD-10; EVIE shaw, [facility]. 4 10:33:28 Aneurysm of ascendin g aorta 043655525 Active [address], [place], [address] , [facility] 4 19:24:51 Bicuspid aortic valve 72105934 Active 2023 severe by ECHO 07/[address], [facility] [address] , [facility] 19:33:10 Osteopen ia 283318652 Active 2023 EVIE shaw, [facility]. 4 10:28:13 Venous stasis 88431552 Active 2023 EVIE shaw, [facility]. 10:29:14 Chronic kidney disease 359086200 Active 2017 Stage 3bA1v eGFR 42-[address], [facility] [address] , [facility]. 20:49:29 Dyspnea on exertion 18167059 Active 2018 Danica shaw, [facility]. 14:39:44 Hiatal hernia 84887750 Completed 202108/11/2023 lap repair MD [address], [facility] [address] , [facility]. 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 MD [address], [place], [address] , [facility] 4 09:13:49 Swelling of bilatera l lower limbs 428588181 Active [address], [place], [address] , [facility] 4 14:35:13 Problem Notes None recorded. Procedures Surgical History Date Name Laterality Status Provider Name and Address Organization Details Recorded Time 10/26/19 24 cardiac pacemaker procedure completed MD [address], [place], [address], [facility] 03/16/2024 16:33:27 10/20/19 24 transcatheter aortic valve implantation completed MD [address], [place], [address], [facility] 03/16/2024 16:32:53 Imaging Results Imaging Date Name Status LastModified by Organization Details LastModified Time 10/14/2023 electrocardiogram completed [facility] [address], [facility] [place], [address], 10/14/2023 11:56:20 10/14/2023 electrocardiogram completed Informa tion not available 10/14/2023 10:55:07 10/14/2023 rhythm strip, EKG* completed [email or web address] Inform ation not available 11/06/2023 10:18:08 11/18/2023 US, duplex, lower extremity completed [address] [place], [address] 11/18/2023 16:48:49 11/18/2023 CT imaging report completed [email or web address] [place] [address] [place], [address] 11/19/2023 12:12:11 11/19/2023 ultrasound imaging report completed [address] [place], [address] 11/19/2023 12:12:11 11/15/2018 imaging/diagnostic result completed Information not available 01/18/2024 00:42:55 11/15/2018 imaging/diagnostic result completed Information not available 01/18/2024 00:42:57 01/18/2020 imaging/diagnostic result completed Information not available 01/18/2024 00:43:00 11/15/2018 imaging/diagnostic result completed Information not available 01/18/2024 00:43:04 06/19/2021 imaging/diagnostic result completed Information not available 01/18/2024 00:43:05 11/15/2020 DEXA completed Information no t available 01/18/2024 00:43:12 03/18/2021 imaging/diagnostic result completed Information not available 01/18/2024 00:45:06 10/07/2021 imaging/diagnostic result completed Information not available 01/18/2024 00:45:38 03/10/2022 imaging/diagnostic result completed Information not available 01/18/2024 00:45:46 08/24/2021 imaging/diagnostic result completed Information not available 01/18/2024 00:47:32 03/09/2022 imaging/diagnostic result completed Information not available 01/18/2024 00:47:33 03/10/2022 imaging/diagnostic result completed Information not available 01/18/2024 00:47:34 08/08/2021 XR, chest completed Information no t available 01/18/2024 00:48:31 11/09/2018 bone density completed Information not available 01/18/2024 00:48:33 05/31/2019 MAMMO, diagnostic completed Informa tion not available 01/18/2024 00:48:34 05/22/2020 MAMMO, diagnostic completed Informa tion not available 01/18/2024 00:48:36 06/11/2021 MAMMO, diagnostic completed Informa tion not available 01/18/2024 00:48:37 06/10/2022 MAMMO, screening completed Informat ion not available 01/18/2024 00:48:42 06/25/2022 MAMMO, screening completed Informat ion not available 01/18/2024 00:48:43 03/23/2020 MRI, lumbar spine completed Informa tion not available 01/18/2024 00:48:46 01/02/2020 XR, knee completed Information no t available 01/18/2024 00:49:00 08/25/2021 XR, knee completed Information no t available 01/18/2024 00:49:01 07/05/2020 XR, lumbar spine completed Informat ion not available 01/18/2024 00:49:03 03/10/2022 imaging/diagnostic result completed Information not available 01/18/2024 00:49:06 08/08/2021 imaging/diagnostic result completed Information not available 01/18/2024 00:49:07 03/10/2022 imaging/diagnostic result completed Information not available 01/18/2024 00:49:09 09/03/2021 imaging/diagnostic result completed Information not available 01/18/2024 00:49:10 Procedure Notes None recorded. Medical Equipment None Reported. Allergies Allergen ID Allergen Name Allergen Category Reaction Reaction Severity Criticality Documentation Date Start Date Code Code System Note Provider Name and Address Organization Details Recorded Time 29992 amlodipin e medicatio n swelling severe high 11/18/2023 47634 RxNorm Shaneka Herrera MA null, [place] - [facility] 13:47:28 Medications Name Sig Start Date Stop Date Status Note LastModified by Organization Details LastModified Time amoxicill in 500 mg capsule 02/18 completed Not Available Not Available Not Available furosemid e 40 mg tablet Take 1 [...] completed Not Available Not Available Not Available carvedilo l 25 mg tablet TAKE ONE TABLET BY MOUTH TWICE A DAY WITH A MEAL/ANGELA D 02/18 completed Not Available Not Available Not Available acetamino phen 325 mg tablet Take 2 tablets every 6 hours by oral route as needed. 02/18 completed Not Available Not Available Not Available carvedilo l 6.25 mg tablet 1 tablet by mouth twice a day Take 1 tablet by mouth twice daily 11/22 completed Not Available Not Available Not Available prednison e 10 mg tablet take as directed , 40 mg for 5, 30 mg for 5, 20 mg for 5, 10 mg for 5 01/17 completed Not Available Not Available Not Available gabapenti n 600 mg tablet Take 1 tab by mouth three times daily 05/28 completed Not Available Not Available Not Available carvedilo l 12.5 mg tablet Take 1 tablet twice a day by oral route as directed . 2023 active Not Available Not Available Not Avai lable Vitamin C 500 mg tablet Take 1 [...] 1 tab by mouth daily 06/02 completed [facility] re Not Available Not Available Not Available [...] every day by oral route, for gout. 04/15 completed Not Available Not Available Not Available aspirin 81 mg tablet,de layed release Take 1 tablet every day by oral route. 12/01 completed Not Available Not Available Not Available tramadol 50 mg tablet TAKE ONE TABLET BY MOUTH EVERY 12 HOURS NEEDED 02/18 completed Not Available Not Available Not Available spironola ctone 25 mg tablet Take 1 tablet every day by oral route, for blood pressure /swellin g in legs. active Not Available Not Available No t Available levothyro xine 75 mcg tablet Take 1 tablet every day by oral route. active Not Available Not Available No t Available levothyro xine 100 mcg tablet Take 1 tablet every day by oral route, for thyroid. 03/04 completed dose decrease d Not Available Not Available Not Available Augmentin 125 mg-31.25 mg/5 mL oral suspensio n augmenti n 400-57/5 ml 10 ml PO bid x 7d, #140 03/17 completed Not Available Not Available Not Available Tessalon Perles 100 mg capsule Take 1 capsule by mouth three times a day as needed for cough 08/13 completed Not Available Not Available Not Available hydromorp ricky 2 mg tablet Take 0.5 tablets every day by oral route as needed. active Not Available Not Available No t Available methocarb jareth 750 mg tablet 1-2 tab PO TID as needed for spasms 10/15 completed [facility] Not Available Not Available Not Available Lamisil 250 mg tablet 1 TAB daily 04/17 completed Not Available Not Available Not Available furosemid e 80 mg tablet TAKE ONE TABLET BY MOUTH EVERY DAY 03/04 completed Not Available Not Available Not Available [...] tablet by mouth daily with vitamin c 02/18 completed Not Available Not Available Not Available lisinopri l 10 mg tablet Take 1 [...] l 5 mg tablet Take 1 tablet every day by oral route, for blood pressure . 02/18 completed Not Available Not Available Not Available hydrochlo rothiazid e 25 mg tablet 1 tab daily 03/20 completed Not Available Not Available Not Available Synthroid 112 mcg tablet Take 1 tab by mouth daily 2013 active [facility] re Not Available Not Available Not Available gabapenti n 100 mg capsule Take 1 cap by mouth three times daily 2015 active Not Available Not Available Not Avai lable metoprolo l succinate ER 25 mg tablet,ex tended release 24 hr Take 1 tab by mouth daily 2017 active [facility] re Not Available Not Available Not [...] tablet twice a day by oral route. 04/15 completed Not Available Not Available Not Available felodipin e ER 5 mg tablet,ex [...] tablet twice a day by oral route. 02/18 completed 150 mg elementa l Not Available Not [...] 1 tablet by mouth once a day active Not Available Not Available No t Available rivaroxab an 15 mg tablet Take 1 tablet every day by oral route as directed . 2023 active Not Available Not Available Not Avai lable OneTouch Verio test strips use one strip [...] Not Available OneTouch Verio Flex Meter 02/22 jennifer Fairbanks gave patient device. Not Available Not Available Not Available BD Tracie 2nd Gen Pen Needle 32 gauge x 5/32 USE 1 NEEDLE ONCE DAILY WITH VICTOZA 11/17 completed Not Available Not Available Not Available allopurin ol 200 mg tablet Take 1 tablet every day by oral route as directed . 2023 active Not Available Not Available Not Avai lable Ozempic 0.25 mg or 0.5 mg (2 [...] Updated DateTime 4 164.34 cm 31.2 kg/m2 94645.1 8 g 99.8 [degF] 97 % 97 % 91 /min 17 /min 131 mm[Hg] 77 mm[Hg] Shaneka Herrera MA [facility] 4 13:46:32 Date Recorded Body height Body mass index (BMI) Body weight Body temperature Oxygen saturation Oxygen saturation in Arterial blood by Pulse oximetry Respiratory rate Heart rate Systolic blood pressure Diastolic blood pressure Provider Name and Address Organization Details Last Updated DateTime 4 164.34 cm 30.6 kg/m2 65659.8 1 g 97.5 [degF] 97 % 97 % 18 /min 88 /min 102 mm[Hg] 60 mm[Hg] KRYSTAL SKELTON LPN [facility] 4 11:10:31 Date Recorded Body height Body mass index (BMI) Body weight Body temperature Oxygen saturation Oxygen saturation in Arterial blood by Pulse oximetry Heart rate Respiratory rate Systolic blood pressure Diastolic blood pressure Provider Name and Address Organization Details Last Updated DateTime 4 164.34 cm 29.1 kg/m2 64778.4 8 g 97.7 [degF] 96 % 96 % 104 /min 18 /min 120 mm[Hg] 74 mm[Hg] KRYSTAL SKELTON LPN [facility] 4 14:18:40 Social History Question Answer Notes LastModified by Organizat ion Details LastModified Time Tobacco Smoking Status Never Smoker KRYSTAL SKELTON LPN [facility] 08/12/2023 07:44:55 Date Of Most Recent HSA [...] And Wanted Help? (For Example, If You Burns Very Nervous, Lonely, Or Blue; Got Sick [...] Safety Concerns In Your Home (see Attached [facility] Pamphlet)? No Information not available 08/12/2023 How [...] Date Of Your Most Recent Tobacco Screening? 03/04/2024 Information not available 03/04/2024 Has Tobacco Cessation Counseling Been Provided? No Information not available 03/04/2024 On What Date Was Tobacco Cessation Counseling Provided? 12/02/2023 Information not available 12/02/2023 Do You Or Have You Ever Used Any Other Forms Of Tobacco Or Nicotine? No Information not available 08/12/2023 Sex: Female Functional Status None recorded. Mental Status None recorded. Family History Relationship Description Onset Age of this Age Resolved Age Notes LastModified by Organization Details LastModified Time Father Family history of stroke [email or web address] Not available 2022 04:00:48 Mother Family history of heart failure [email or web address] Not available 2022 04:00:48 Notes:*Problem: Mother: Dece ased 66 CAD Father: [...] 0 0 Immunizations Vaccine Type Date Status Note Provider Nam e and Address Organization Details Recorded Time Pneumococcal conjugate PCV20, polysaccharide [id number] conjugate, adjuvant, PF 4 completed MD [address], [place], [place], [address] [place] [address], [facility] 08/12/2023 11:52:18 COVID-19, mRNA, LNP-S, PF, vanda-sucrose, 30 mcg/0.3 mL 4 completed MD [address], [address] 08/12/2023 11:52:18 COVID-19, mRNA, LNP-S, PF, vanda-sucrose, 30 mcg/0.3 mL 4 completed MD Young [address], [address] 03/04/2024 15:04:49 Tdap 1 completed Not Available [facility] 03/13/2023 06:18:37 Tdap 1 completed Not Available [facility] 03/13/2023 06:18:37 zoster live 5 completed Not Available [facility] 03/13/2023 06:18:37 Influenza, high-dose, trivalent, PF 8 completed Not Available [facility] 03/13/2023 06:18:38 Influenza, split virus, trivalent, preservative 6 completed Not Available [facility] 03/13/2023 06:18:38 Pneumococcal Conjugate, unspecified formulation 5 completed Not Available [facility] 03/13/2023 06:18:38 Influenza, split virus, quadrivalent, preservative 7 completed Not Available [facility] 03/13/2023 06:18:38 Influenza, high-dose, quadrivalent, PF 2 completed Not Available [facility] 03/13/2023 06:18:38 Influenza, high-dose, quadrivalent, PF 1 completed Not Available [facility] 03/13/2023 06:18:38 Influenza, high-dose, quadrivalent, PF 0 completed Not Available [facility] 03/13/2023 06:18:38 COVID-19, mRNA, LNP-S, PF, 100 mcg/0.5mL dose or 50 mcg/0.25mL dose 1 completed Not Available [facility] 03/13/2023 06:18:38 COVID-19, mRNA, LNP-S, PF, 100 mcg/0.5mL dose or 50 mcg/0.25mL dose 1 completed Not Available [facility] 03/13/2023 06:18:39 COVID-19, mRNA, LNP-S, PF, 100 mcg/0.5mL dose or 50 mcg/0.25mL dose 1 completed Not Available [facility] 03/13/2023 06:18:39 COVID-19, mRNA, LNP-S, bivalent, PF, 30 mcg/0.3 mL dose 2 completed Not Available [facility] 03/13/2023 06:18:39 pneumococcal polysaccharide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
--- OUTSIDE RECORDS SUMMARY | 2024-04-18 12:25 | XMS_ITS | Continuity of Care Document ---
Author Organization [place] [facility], [facility] Address [address] [place] [address] Care Team Providers Care Failure Analysis Technician Name Role Phone [employer] Emergency Clerk [facility] Orthopedic Surgeon [facility] Sleep Medicine [facility] Gum Maker Assessment No assessment recorded. Plan of Treatment Reminders Order Date Submit Date Provider Last Modified By Organization Details Last Modified Time Details Appointments Nurse Visit 20 2023 10:30A M [facility] Nursing Staff Not available Not available Not available Follow Up 2024 10:00A M Ana Wade Not available Not available Not available Lab BMP, serum or plasma 2023 024 [facility] (Registration ), [address] [place] [address] [place], [address], 04/18/2024 10:54:43 vitamin D, 25-hydro xy, total, serum 2023 024 ATHENAFAX [facility] (Registration ), [address] [place] [address] [place], [address], 04/18/2024 10:50:41 HbA1c (hemoglo bin A1c), blood 2023 024 [facility] (Registration ), [address] [place] [address] [place], [address], 04/18/2024 10:54:43 TSH, serum, reflex free T4 2023 [facility] (Registration ), [address] [place] [address] [place], [address], 04/18/2024 10:50:43 CBC 2023 [facility] (Registration ), [address] [place] [address] [place], [address], 04/18/2024 10:50:43 ferritin , serum or plasma 2023 [facility] (Registration ), [address] [place] [address] [place], [address], 04/18/2024 11:01:06 iron + total iron-bin ding capacity (TIBC), serum 2023 024 [facility] (Registration ), [address] [place] [address] [place], [address], 04/18/2024 11:05:19 Referral None recorded . Procedures None recorded . Surgeries None recorded . Imaging None recorded . Medication Orders None recorded . Patient TargetsNo targets recorded. Patient InstructionsNo instructions recorded. 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 None Reported. Problems Name Problem SNOMED Code Status Onset Date Resolution Date Notes Provider Name and Address Organization Details Recorded Time Osteopor otic fracture Active 2023 Zoledron ate started at time of humeral fracture 2023- ANA WADE MD [facility] [address], [place], [address] , [facility] 4 17:34:10 Hypothyr oidism 94761092 Active 1959 EVIE shaw [facility] 4 10:29:59 Essentia l hyperten jason 36361665 Active 1959 EVIE shaw [facility] 4 10:29:36 Hyperlip idemia 66447346 Active 1959 on statin MD [address], [place], [address] , [facility] 4 20:35:18 Spinal stenosis of lumbar region 31078313 Active 2012 s/p lumbar foramino parish L4 MD [address], [place], [address] , [facility] 4 20:36:41 Sleep apnea 78740301 Active 2012 on CPAP MD [address], [place], [address] , [facility] 4 20:39:31 Gastroes ophageal reflux disease without esophagi tis 586788780 Completed 195908/12/2023 Removal Reason: resolved with surgical repair of HH MD [address], [place], [address] , [facility] 4 10:41:24 Family history of malignan t neoplasm of digestiv e organ 809714617 Active [address], [place], [address] , [facility] 4 20:37:03 Paresthe samir 71564160 Completed 201412/01/2014 11/28/19 15 - Comments only - Ana Wade MD - check B12 and folate Problem Code: R20.2; Problem Code Type: ICD-10; Not Available [facility] 3 05:53:48 Adult health examinat ion Active [address], [place], [address] , [facility] 4 20:33:34 Pre-surg ruben evaluati on Completed 201510/03/2015 09/03/19 16 - Comments only - Ana Wade MD [...] Z01.818; Problem Code Type: ICD-10; Not Available [facility] 3 05:53:48 Localize d edema 848840195 Completed 201501/29/2016 12/13/19 16 - Comments only - Ana Wade MD - and some on left as well, will check BMP. 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 Nusrat esparza for removal. Problem Code: L72.3; Problem Code Type: ICD-10; Not Available [facility] 3 05:53:49 Chronic ulcer of foot 340830855 Completed 201601/16/2017 12/18/19 17 - Comments only - Ana Wade MD - Due to injury. This does appear to have some granulat ion tissue and to be healing. She is given a prescrip tion for Keflex to take only if erythema seems to be extendin g. Problem Code: L97.509; Problem Code Type: ICD-10; Not Available [facility] 3 05:53:49 Diarrhea 67362070 Completed 201602/10/2017 02/05/20 17 - Comments only - Ana Wade MD - Persiste nt over several months, we will collect stool for C. difficil e, Giardia, culture, and lactofer rin Problem Code: R19.7; Problem Code Type: ICD-10; ANA WADE MD [address], [place], [address] , [facility], [facility] 4 21:03:03 Polyp of cervix 78522704 Active 2016 EVIE shaw, [facility]. 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 6 mm PT1NO E2P2 poistive , HER2 negative ANA WADE MD [address], [place], [address] , [facility], [facility]. 4 20:38:49 Pain in left lower limb 337431725 Active 2016 EVIE shaw [facility], [facility]. 4 10:32:00 Pain in thoracic spine 780472743 Active 2016 EVIE shaw [facility], [facility]. 4 10:32:06 Spasm 02568500 Active 2017 EVIE shaw [facility], [facility]. 4 10:33:28 Abdomina l distensi on, gaseous 549845047 Completed 201703/08/2018 Problem Code: R14.0; Problem Code Type: ICD-10; Not Available [facility] 3 05:53:50 Cellulit is of toe 71455974 Completed 201808/12/2018 Problem Code: L03.039; Problem Code Type: ICD-10; Not Available [facility] 3 05:53:51 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 2018 Danica shaw, [facility] 4 14:36:02 Tachycar lea 4192719 Completed 201811/25/2018 Problem Code: R00.0; Problem Code Type: ICD-10; Not Available [facility] 3 05:53:51 Pre-surg ruben evaluati on Completed 201811/25/2018 Problem Code: Z01.818; Problem Code Type: ICD-10; Not Available [facility] 3 05:53:51 Iron deficien cy anemia 71583421 Active 2019 on oral iron- elevated MCV: normal B12 2021, normal folate 2018 IV iron 2023 EGD 01/2022 paraesop hageal hernia (since repaired ) colo 03/2017 normal ANA WADE MD [address], [place], [address] , [facility] 4 17:37:19 Lumbago with sciatica 250903631 Completed 201903/16/2020 02/24/20 20 - Comments only - 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 - Likely aggravat ed by increase d [...] M54.40; Problem Code Type: ICD-10; Not Available [facility] 3 05:53:52 Right side sciatica 65887310088 9101 Active 2019 EVIE shaw, [facility] 4 10:33:09 Left side sciatica 15281352234 9104 Active [address], [facility] [address] , [facility] 4 17:20:20 Diaphrag matic hernia 36969780 Completed 202108/11/2023 Removal Reason: s/p repair MD [address], [facility] [address] , [facility] 4 20:50:39 History of SARS-CoV -2 14447825371 3151333 Completed 202104/04/2022 03/21/20 22 - Comments only - Ana Wade MD - testing is negative today in the office. Still some fatigue but otherwis e recoveri ng. Did get MAB. Already had covid bivalent booster prior to illness Problem Code: Z86.16; Problem Code Type: ICD-10; Not Available [facility] 3 05:53:53 Diarrhea 16686617 Completed 202104/18/2022 Problem Code: R19.7; Problem Code Type: ICD-10; MD [address], [facility] [address] , [facility] 4 21:03:02 Screenin g mammogra phy Completed 202208/11/[address], [place], [address] , [facility], [facility] 4 20:36:56 Carpal tunnel syndrome of left wrist 02805658611 9102 Completed 202201/23/2023 Problem Code: G56.02; Problem Code Type: ICD-10; Not Available [facility] 4 05:37:46 Diarrhea 54355932 Active 2022 started colestip ol 01/[address], [place], [address] , [facility] 4 21:03:02 Carpal tunnel syndrome of right wrist 09559843114 9108 Completed 201803/19/2020 Problem Code: G56.01; Problem Code Type: ICD-10; Not Available [facility] 3 05:53:55 Pain of left knee joint 89476745640 4107 Completed 202107/30/2022 Problem Code: M25.562; Problem Code Type: ICD-10; Not Available [facility] 3 05:53:55 Hypersom korina 79267294 Completed 201311/27/2014 Problem Code: 780.54; Problem Code Type: ICD-9; Not Available [facility] 3 05:53:56 Screenin g for disorder Completed 201909/11/2021 Problem Code: Z13.9; Problem Code Type: ICD-10; Not Available [facility] 3 05:53:56 Anemia 258288384 Completed 201903/19/2020 Problem Code: D64.9; Problem Code Type: ICD-10; Not Available [facility] 3 05:53:56 Long-ter m current use of anticoag ulant 869057479 Completed 201709/01/2018 Problem Code: Z79.01; Problem Code Type: ICD-10; Not Available [facility] 3 05:53:57 Chronic rhinitis 22594674 Completed 202108/12/2021 Problem Code: J31.0; Problem Code Type: ICD-10; Not Available [facility] 3 05:53:57 Impaired fasting glycemia 736294690 Completed 201401/28/2023 Not Available [facility] 3 05:53:57 Fatigue 46735249 Completed 201903/19/2020 Problem Code: R53.83; Problem Code Type: ICD-10; Not Available [facility] 3 05:53:58 Upper respirat ory tract infectio n caused by Influenz a A 03297907946 9104 Completed 201707/02/2017 Problem Code: J09.x2; Problem Code Type: ICD-10; Not Available [facility] 05:53:59 Diarrhea 40782207 Completed 201709/01/2018 ANA WADE MD [address], [place], [address] [facility] 4 21:03:02 Acute upper respirat ory infectio n 91588736 Completed 202108/26/2021 Problem Code: J06.9; Problem Code Type: ICD-10; Not Available [facility] 3 05:53:59 Pain in right foot 10681706324 9107 Completed 202207/30/2022 Problem Code: M79.671; Problem Code Type: ICD-10; Not Available [facility] 3 05:54:00 Breast composit ion 588074887 Completed 201601/28/2023 Not Available [facility] 3 05:54:00 Changes in skin texture 927432639 Completed 202207/30/2022 Problem Code: R23.4; Problem Code Type: ICD-10; Not Available [facility] 3 05:54:01 Spasm 63304989 Completed 201603/23/2017 Problem Code: R25.2; Problem Code Type: ICD-10; EVIE shaw [facility] 4 10:33:28 Hyperten sive disorder 04236541 Completed 11/28/19 15 - Comments only - Ana Wade MD - [facility] control ed, no change in medicati ons Not Available [facility] 3 05:54:03 Arthralg ia of the ankle and/or foot 142438948 Completed 201501/30/2016 Problem Code: M25.571; Problem Code Type: ICD-10; Not Available [facility] 3 05:54:03 Dyspnea 026230002 Completed 201903/19/2020 Problem Code: R06.02; Problem Code Type: ICD-10; Danica shaw [facility] 4 14:39:47 Trigger finger of right hand 71351644335 652371 Completed 201803/19/2020 Problem Code: M65.341; Problem Code Type: ICD-10; Not Available [facility] 3 05:54:06 Cough 37136510 Completed 202108/12/2021 Problem Code: R05.1; Problem Code Type: ICD-10; Not Available [facility] 3 05:54:06 At risk - finding 896254618 Completed 201811/11/2018 Problem Code: Z91.89; Problem Code Type: ICD-10; Not Available [facility] 3 05:54:06 Cough 68672611 Completed 201706/15/2017 Problem Code: R05; Problem Code Type: ICD-10; Not Available [facility] 3 05:54:07 Preopera tive cardiova scular examinat ion Completed 202112/18/2021 Problem Code: Z01.810; Problem Code Type: ICD-10; Not Available [facility] 3 05:54:08 Arterial bruit 64829874 Completed 202109/11/2021 Not Available [facility] 3 05:54:08 Gastroes ophageal reflux disease 612379775 Completed Not Available [facility] 3 05:54:09 Imaging of musculos keletal system abnormal 840461967 Completed 201603/23/2017 Problem Code: R93.7; Problem Code Type: ICD-10; Not Available [facility] 3 05:54:10 Blood glucose outside referenc e range 032636247 Completed 201503/20/2016 Problem Code: R73.09; Problem Code Type: ICD-10; Not Available [facility] 3 05:54:10 Abdomina l aortic aneurysm 935975160 Completed 195912/04/2014 Not Available [facility] 3 05:54:11 Lung field abnormal 551770921 Completed 202109/11/2021 Problem Code: R91.8; Problem Code Type: ICD-10; Not Available [facility] 3 05:54:11 Ingrowin g nail 247123935 Completed 201503/23/2017 Problem Code: L60.0; Problem Code Type: ICD-10; Not Available [facility] 3 05:54:11 Hypokale karyn 95015377 Completed 201504/17/2016 Problem Code: E87.6; Problem Code Type: ICD-10; Not Available [facility] 3 05:54:12 Spasm 89649071 Completed 202201/23/2023 Problem Code: M62.838; Problem Code Type: ICD-10; EVIE shaw, [facility]. 4 10:33:28 Aneurysm of ascendin g aorta 767157004 Active [address], [place], [address] , [facility]. 4 19:24:51 Bicuspid aortic valve 36709972 Active 2023 severe by ECHO 07/[address], [place], [address] , [facility]. 4 19:33:10 Osteopen ia 087026349 Active 2023 EVIE shaw, [facility]. 4 10:28:13 Venous stasis 08687321 Active 2023 EVIE shaw, [facility] 4 10:29:14 Chronic kidney disease 100610498 Active 2017 Stage 3bA1v eGFR 42-[address], [place], [address] , [facility] 4 20:49:29 Dyspnea on exertion 58404171 Active 2018 Danica shaw, [facility] 4 14:39:44 Hiatal hernia 33805982 Completed 202108/11/2023 lap repair MD [address], [place], [address] , [facility] 4 20:51:15 Edema of lower extremit y 404307834 Active [address], [place], [address] , [facility] 4 20:55:49 Atrial fibrilla tion 01471959 Active 2016 s/p pulmonoa ry vein isolatio n 05/2018, chronic anticoag ulation with Xarelto MD [address], [place], [address] , [facility]. 4 09:14:08 Obesity 062887924 Active [address], [place], [address] , [facility]. 4 09:26:22 Cardiac pacemake r in situ 235240515 Active 2023 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 MD [address], [place], [address] , [facility]. 09:13:49 Swelling of bilatera l lower limbs 721794655 Active [address], [facility] [address] , [facility] 14:35:13 Problem Notes None recorded. Procedures Surgical History Date Name Laterality Status Provider Name and Address Organization Details Recorded Time 10/26/19 cardiac pacemaker procedure completed MD [address], [facility] [address], [facility] 03/16/2024 16:33:27 10/20/19 transcatheter aortic valve implantation completed MD [address], [facility] [address] [place] [address] 03/16/2024 16:32:53 Imaging Results None recorded. Procedure Notes None recorded. Medical Equipment None Reported. Allergies Allergen ID Allergen Name Allergen Category Reaction Reaction Severity Criticality Documentation Date Start Date Code Code System Note Provider Name and Address Organization Details Recorded Time 80293 amlodipin e medicatio n swelling severe high 11/18/2023 57430 RxNorm HIRA Hodge, [facility] 13:47:28 Medications Name Sig Start [...] 1 tab by mouth daily 06[facility]02 [facility] Not Available Not Available [...] 1 tab by mouth daily 2017 active [facility] Not Available Not Available Not [...] 2nd Gen Pen Needle 32 gauge x 32 USE 1 NEEDLE ONCE DAILY WITH VICTOZA [...] Smoking Status Never Smoker 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 08/12/2023 07:44:55 Date Of Most Recent HSA [...] And Wanted Help? (For Example, If You Randolph Very Nervous, Lonely, Or Blue; Got Sick [...] 04:00:48 Mother Family history of heart failure [email or web address] Not available 2022 04:00:48 Notes:*Problem: Mother: Dece [...] Details Recorded Time Pneumococcal conjugate PCV20, polysaccharide KHY984 conjugate, adjuvant, PF 4 completed MD [address], [place], [address], [facility] 08/12/2023 11:52:18 COVID-19, mRNA, LNP-S, PF, vanda-sucrose, 30 mcg/0.3 mL 4 completed MD [address], [place], [address], [facility] 08/12/2023 11:52:18 COVID-19, mRNA, LNP-S, PF, vanda-sucrose, 30 mcg/0.3 mL 4 completed MD [address], [facility] [address], [place] [facility]. 03/04/2024 15:04:49 Tdap 1 completed Not Available [facility] 03/13/2023 06:18:37 Tdap 1 completed Not Available [facility] 03/13/2023 06:18:37 zoster live 5 completed Not Available [facility] 03/13/2023 06:18:37 Influenza, high-dose, trivalent, PF 8 completed Not Available [facility] 03/13/2023 06:18:38 Influenza, split virus, trivalent, preservative 6 completed Not Available [facility] 03/13/2023 06:18:38 Pneumococcal Conjugate, unspecified formulation 5 completed Not Available [facility] 03/13/2023 06:18:38 Influenza, split virus, quadrivalent, preservative 7 completed Not Available [facility] 03/13/2023 06:18:38 Influenza, high-dose, quadrivalent, PF 2 completed Not Available [facility] 03/13/2023 06:18:38 Influenza, high-dose, quadrivalent, PF 1 completed Not Available [facility] 03/13/2023 06:18:38 Influenza, high-dose, quadrivalent, PF 0 completed Not Available [facility] 03/13/2023 06:18:38 COVID-19, mRNA, LNP-S, PF, 100 mcg/0.5mL dose or 50 mcg/0.25mL dose 1 completed Not Available [facility] 03/13/2023 06:18:38 COVID-19, mRNA, LNP-S, PF, 100 mcg/0.5mL dose or 50 mcg/0.25mL dose 1 completed Not Available [facility] 03/13/2023 06:18:39 COVID-19, mRNA, LNP-S, PF, 100 mcg/0.5mL dose or 50 mcg/0.25mL dose 1 completed Not Available [facility] 03/13/2023 06:18:39 COVID-19, mRNA, LNP-S, bivalent, PF, 30 mcg/0.3 mL dose 2 completed Not Available [facility] 03/13/2023 06:18:39 pneumococcal polysaccharide PPV23 1 completed Not Available [facility] 03/13/2023 06:18:39 influenza, unspecified formulation 6 completed Not Available [facility] 03/13/2023 06:18:39 influenza, unspecified formulation 4 completed Not Available [facility] 03/13/2023 06:18:39 Influenza, high-dose, quadrivalent, PF 3 completed Not Available [facility] 05/15/2023 05:33:16 Past Encounters Encounter ID Performer Location Encounter Start Date Encounter Closed Date Diagnosis/Indication Diagnosis SNOMED-CT Code Diagnosis ICD10 Code [id number] Samantha Razo RN [address] [place] [address] 04/18/2024 10:14:04 04/18/2024 10:46:21 Osteoporotic fracture 23522228 M80.00XD Hypothyroidism 29288785 E03.9 Iron defic iency anemia 95982820 D50.9 Chronic ki dney disease 906933117 N18.9 Prediabetes 047691187 R7 3.03 Health Concerns Section Related Observation LastModified by Organization Detai ls LastModified Time None Recorded Concern Status LastModified by Organization Details LastModified Time None Recorded Payers Encounter Date Sequence Insurance Name Policy Number Policy Palacio Covered Member ID Palacio Member ID Guarantor Name 04/18/2024 1 [place] [employer] Digna Olson [id number] Digna Olson 04/18/2024 2 [place] [facility] [id number] Digna Olson [id number] Digna Olson OBGyn Episode No OBEpisode recorded.
--- OUTSIDE RECORDS SUMMARY | 2024-04-18 12:25 | XMS_ITS | Clinical Summary ---
Author Organization [facility] [place] [address] Care Team Providers Care Poolroom Table Attendant Name Role Phone Ana Her MD Primary Care Provider [phone] Allergies No known active allergies Medications Medication [...] the eliquis and has been managed by [facility]. She has remained in [place] over [...] and ECG with Dr. Ana Her in [place] in January She will discuss ECHO results with Dr. Burkett Cardiomyopathy, nonischemic 03/30/2018 Malignant neoplasm of lower- 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, estrogen receptor positive 02/25/2017 Cancer Staging:Clinical stage from 03/23/2017:Stage IA(T1a, N0, M0) - Signed by Med Mcgraw MD on 03/23/2017 Pathologic stage from 04/03/2017:Stage IA(T1b, N0, cM0) - Signed by Mde Mcgraw MD on 04/03/2017 Overview (04/03/2017): Ms. [...] - TT3 and FT4 nl - My [employer] colleague called and spoke with covering MD [...] - PCV) 08/16/1951 Hepatitis C Screening 08/16/1963 Tetanus/Diphtheria/Pertussis Vaccines (1 - Tdap) 1964 Zoster vaccine (1 of 2) 08/16/1995 Advance Directive 2000 RSV Vaccine (1 - 1-dose 75+ series) 2020 Covid-19 Vaccine ( - 2023-2 5 season) 2024 Influenza (Flu) vaccine (1 o f 1 - Influenza standard series) 01/03/2024 Bone Density Scan 11/16/2035 11/15/2020, 11/09/2018 Breast Cancer screening Discontinued 06/11/19, 05/22/2020, 05/31/2019, Additional history exists Medical Devices Implanted Type Area Fnp Device Identifier Shelf Expiration Date Model / Serial / Lot Breast Clip-02/26/20 17 Implanted: by Enzo Burkett MD (Quantity not on file) Breast Clip Left: Breast Bard - 0614 05/04/2019 SENOMARK ULTRACOR BREAST TISSUE MARKER ULTRASOUND ENHANCED BLANCA / / [id number] Description:BLACNA Procedures Procedure Name Priority Date/Time Associated Diagnosis [...] Osteopenia of neck of femur, unspecified laterality FPC current 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 from Last [...] who have questions please contact the health occasional caregiver that requested your imaging first. ? 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 Paper copies will be sent to providers without [employer] access. If you have received this report without the data sheet and do not have access to [employer], please contact Radiology Echo Tech at [phone] Thursday thru Thursday 8am-4pm. Thank you for letting us participate in the care of this patient. ??If you are a health care provider and have any questions regarding this report, please contact the number below. ??For patients who have questions please contact the health occasional caregiver that requested your imaging first. ? Narrative [...] BMD measurements and plots are available in ECutetownunder the imaging tab. Paper copies will be sent to providers without E- access.If you have received this report without the data sheet and do not haveaccess to E-, please contact Radiology Echo Tech at [phone] Thursday thrrid 8am-4pm. Thank you for letting us participate in the care of this patient. If youare a health care provider and have any questions regarding this report,please contact the number below. For patients who have questions please contactthe health occasional caregiver that requested your imaging first. Ricky [...] Status decision made by: Patient Care Teams Poolroom Table Attendant Relationship Specialty Start Date End Date Ana Her MD [facility] [address] [place] [address] [facility] - General 07/29/13
--- OUTSIDE RECORDS SUMMARY | 2024-04-18 12:26 | XMS_ITS | Encounter Summary ---
[place] [address] Care Team Providers Care Hairspring I Inspector Name Role Phone Ana Her MD Primary Care Provider [phone] Reason for Visit * Auth/Cert Specialty Diagnoses / Procedures Referred By Christiano hackett Referred To Contact Diagnoses S/P repair of paraesophageal hernia Post-Op monitoring Procedures PRO LAPARSCOPY REPAIR PARAESOPHAGEAL HERNIA INCL FUNDOPLASTY W/O MESH LAPAROSCOPIC PARAESOPHAGEAL HERNIA REPAIR W/FUNDOPLASTY, W/O MESH (WRVU 26.6) MODIFIER TOUPET FUNDOPLASTY Shania Will MD [facility] [place] [address] [facility] Referral ID Status Reason Start Date Expiration Date Visits Re quested Visits Authorized [id number] 1 1 Encounter Details Date Type Department Care Team (Latest Contact Info) Description 03/05/2022 11:55 AM EDT - 03/07/2022 10:00 AM EDT Hospital En[place] [id number] Shania Will MD [facility] [place] [address] Discharge Disposition: Home Social History Tobacco Use [...] 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 Anemia D64.9 ??? Aortic valve [...] Per chart review, her creatinine levels in 5648-2193 ranged from 0.87-1.50 indicative of possible undiagnosed [...] PM Shania Will MD General Surgery at [facility] Arrive at: Deliverer Outside Area [phone] Instructions Given to Patient at Discharge: Patient [...] hours please call the Surgery Clinic at [phone] before 5 PM on weekdays. For questions after hours and on weekends please call the hospital offset press operator helper at [phone] and ask for the General Surgery resident adapted physical education teacher. They may not be familiar with your [...] post Sly diet, as instructed by the miller head in the hospital for a period of [...] renal function. Please call the clinic at [phone] to confirm or reschedule. Future Appointments Date Time Provider Department Center 04/03/2022 12:00 PM Shania Will MD [facility] General Instructions None Future Appointments and Orders Future Appointments and Orders Future Appointments Provider Department Dept Phone 04/03/2022 12:00 PM Shania Will MD General Surgery at [facility] Arrive at: Deliverer Outside Area Signed: Shena Harden MD 03/07/22 7:18 AM [facility] [address] [place] Physician: MD Geovany David DR [facility] [id number] documented in this encounter Discharge Instructions * [...] hours please call the Surgery Clinic at [phone] before 5 PM on weekdays. For questions after hours and on weekends please call the hospital offset press operator helper at [phone] and ask for the General Surgery resident adapted physical education teacher. They may not be familiar with your [...] post Sly diet, as instructed by the miller head in the hospital for a period of [...] renal function. Please call the clinic at [phone] to confirm or reschedule. Future Appointments Date Time Provider Department Center 04/03/2022 12:00 PM Shania Will MD [facility] documented in this encounter Medications at Time [...] Ocampo RN - 03/07/2022 10:25 AM EDT [facility] Short Stay Unit Discharge Note [...] Sly Diet Education to pt Digna Olson. Advanced Manager metwith pt at bedside to deliver [...] she is noticing some overall improvement post op.Advanced Manager took note of this and encouraged [...] Department contact information provided. Pt appreciate of lead technical writer's time. Nutrition to follow as [...] Perez MD 03/05/2022 Minimally Invasive Surgery Pager #[phone] * Lorrie Slater RN - 03/05/2022 6:46 [...] ?? She is followed by cardiology at [facility], and is on xarelto. ?? Impression: ??Symptomatic [...] of left breast of female, estrogen receptor zoinfymxM11.512, Z17.0 ??? Anemia D64.9 ??? Aortic valve [...] 6.43) performed by Malika Chen MD at [facility] MAIN OR ??? PRO INTRAOP SENTINEL LYMPH ID W/DYE INJECTION Left 03/30/2017 ?? INTRAOPERATIVE ID (MAPPING) SENTINEL LYMPH NODE,INCLUDES INJECTION (WRVU 2.5) performed by Malika Chen MD at [facility] MAIN OR ??? PRO MASTECTOMY PARTIAL Left 03/30/2017 ?? MASTECTOMY PARTIAL (WRVU 10.13) performed by Malika Chen MD at [facility] MAIN OR ?? Cholecystectomy ?? [...] Operative Note Patient Name: Digna Olson : [id number] MR#: [id number] Case Date: 03/05/2022 Surgeon: Surgeon(s) and Role: [...] Flores MD - 03/05/2022 2:32 PM EDT [facility] Operative Note Patient Name: Digna Olson : [id number] MR#: [id number] Case Date: 03/05/2022 Surgeon: Surgeon(s) and Role: [...] 5 :08 AM EDT BASIC METABOLIC PANEL Routine 03/07/2022 5:08 AM EDT HEMOGRAM Timed 03/06/2022 10:15 AM EDT DIFFERENTIAL, AUTOMATED Timed 03/06/20 10:15 AM EDT HC CBC,PLT & AUTO DIFF Timed 10:15 AM EDT HC PHOSPHORUS, SERUM Timed 03/06/2022 10:15 AM EDT HC MAGNESIUM, SERUM Timed 03/06/2022 1 0:15 AM EDT BASIC METABOLIC PANEL Timed 03/06/2022 10:15 AM EDT HEMOGRAM Routine 03/06/2022 4:29 AM EDT DIFFERENTIAL, AUTOMATED Routine 03/06/20 4:29 AM EDT HC CBC,PLT & AUTO DIFF Routine 4:29 AM EDT BASIC METABOLIC PANEL Routine 03/06/2022 4:29 AM EDT MODIFIER TOUPET FUNDOPLASTY 03/05/2022 1:58 PM EDT Paraesophageal Hernia Laparoscopy Repair Paraesophageal Hernia Incl Fundoplasty W/O Mesh (05200) 03/05/2022 1:58 PM EDT Paraesophageal Hernia POCT GLUCOSE Routine 03/05/2022 12:18 PM EDT LAPAROSCOPIC PARAESOPHAGEAL HERNIA REPAIR W FUNDOPLASTY, W/O MESH Routine 03/05/2022 12:02 PM EDT documented in this encounter Results * (ABNORMAL) Differential, Automated (03/07/2022 5:08 AM EDT) Neutrophil % 80.0 % [facility] Neutrophil Absolute 5.30 1.70 - 6.10 x10(3)/mc L [facility] Lymph % 12.1 % [facility] Lymphocytes Abs 0.8(L) 0.9 - 3.2 x10(3)/mc L [facility] Monocyte % 7.6 % [facility] Monocyte Abs 0.5 0.3 - 0.9 x10(3)/mc L [facility] Eos % 0.0 % [facility] Eosinophils Abs 0.0 0.0 - 0.4 x10(3)/mc L [facility] Basophil % 0.0 % [facility] Baso Absolute 0.0 0.0 - 0.1 x10(3)/[facility] Immature Gran % 0.30 % [facility] Comment: Immature granulocytes(IG's)percentage and absolute count will include metamyelocytes, myelocytes, and promyelocytes. Blood smears from CBCs yielding IG's will be scanned manually for concordance. If this scan disagrees with the automated IG or if promyelocytes are noted, a manual differential will be performed. Immature Gran Absolute 0.02 0.00 - 0.04 x10(3)/[facility] Blood 03/07/2022 5:08 AM EDT 03/07/2022 5:19 AM EDT Narrative Resulting Agency Comment Spec In Lab Nino Levy MD HEMATOLOGY ORDERABLE S Performing Organization Address City/State/[facility] Co de Phone Number [facility] [place] [address] * (ABNORMAL) Hemogram (03/07/2022 5:08 AM EDT) White Blood Cell 6.6 4.0 - 9.5 x10(3)/[facility] Red Blood Cell 3.16(L) 4.00 - 5.21 x10(6)/[facility] Hemoglobin 10.7(L) 11.7 - 15.5 g/dL [facility] Hematocrit 31.7(L) 35.7 - 45.8 % [facility] Mean Cell Volume 100.3(H) 82.6 - 94.4 fL [facility] Mean Cell Hemoglobin 33.9(H) 27.1 - 32.0 pg [facility] Mean Cell Hemoglobin Concentration 33.8 31.7 - 35.0 g/dL [facility] Platelet 110(L) 145 - 357 x10(3)/[facility] RDW Standard Deviation 47.5(H) 37.0 - 46.0 fL [facility] RDW coefficient of variation 12.9 11.5 - 14.1 % [facility] Mean Platelet Volume 11.7 7.6 - 12.9 fL [facility] NRBC% auto 0.0 % [facility] NRBC Absolute 0.000 0.000 - 0.000 x10(3)/mc L [facility] Blood 03/07/2022 5:08 AM EDT 03/07/2022 5:19 AM EDT Narrative Resulting Agency Comment Spec In Lab Nino Levy MD HEMATOLOGY ORDERABLE S [facility] [place] [address] * Phosphorus (03/07/2022 5:08 AM EDT) Phosphorus 2.7 2.5 - 4.5 mg/dL [facility] Blood 03/07/2022 5:08 AM EDT 03/07/2022 5:19 AM EDT Narrative Resulting Agency Comment Spec In Lab Shania Will MD CHEMISTRY ORDERABLE S Performing Organization Address City/[facility]/ZIP Co de Phone Number [facility] [place] [address] * Magnesium (03/07/2022 5:08 AM EDT) Magnesium 0.89 0.69 - 1.07 mmol/L [facility] Blood 03/07/2022 5:08 AM EDT 03/07/2022 5:19 AM EDT Narrative Resulting Agency Comment Spec In Lab Shania Will MD CHEMISTRY ORDERABLE S [facility] [place] [address] * (ABNORMAL) Basic Metabolic Panel (non-fasting) (03/07/2022 5:08 AM EDT) Glucose 111 65 - 199 mg/dL [facility] Comment:Diabetes: >=200 mg/d L plus symptoms Blood Urea Nitrogen 22(H) 8 - 18 mg/dL [facility] - 107 mmol/L [facility] Carbon Dioxide 22 22 - 31 mmol/L [facility] Anion Gap 9 5 - 15 mmol/L [facility] Calcium 9.2 8.5 - 10.5 mg/dL [facility] Est Glomerular Filtration Rate 64 >=60 mL/min/1. 73 m?? [facility] [...] Lab Shania Will [place] [address] * (ABNORMAL) Differential, Automated (03/06/2022 10:15 AM EDT) Pathologist [facility] Neutrophil % 90.7 % [facility] Neutrophil Absolute 5.79 1.70 - 6.10 x10(3)/ L [facility] Lymph % 5.0 % [facility] Lymphocytes Abs 0.3(L) 0.9 - 3.2 x10(3)/ L [facility] Monocyte % 3.8 % [facility] Monocyte Abs 0.2(L) 0.3 - 0.9 x10(3)/[facility] Eos % 0.0 % [facility] Eosinophils Abs 0.0 0.0 - 0.4 x10(3)/[facility] Basophil % 0.0 % [facility] Baso Absolute 0.0 0.0 - 0.1 x10(3)/ L [facility] Immature Gran % 0.50 % [facility] Comment: Immature granulocytes(IG's)percentage and absolute count will include metamyelocytes, myelocytes, and promyelocytes. Blood smears from CBCs yielding IG's will be scanned manually for concordance. If this scan disagrees with the automated IG or if promyelocytes are noted, a manual differential will be performed. Immature Gran Absolute 0.03 0.00 - 0.04 x10(3)/ L [facility] Blood 03/06/2022 10:1 5 AM EDT 03/06/2022 10:21 AM EDT Narrative Resulting Agency Comment Spec In Lab Maryam MUELL[place] [address] * (ABNORMAL) Hemogram (03/06/2022 10:15 AM EDT) White Blood Cell 6.4 4.0 - 9.5 x10(3)/mc L [facility] Red Blood Cell 3.07(L) 4.00 - 5.21 x10(6)/mc L [facility] Hemoglobin 10.5(L) 11.7 - 15.5 g/dL [facility] Hematocrit 31.1(L) 35.7 - 45.8 % [facility] Mean Cell Volume 101.3(H) 82.6 - 94.4 fL [facility] Mean Cell Hemoglobin 34.2(H) 27.1 - 32.0 pg [facility] Mean Cell Hemoglobin Concentration 33.8 31.7 - 35.0 g/dL [facility] Platelet 111(L) 145 - 357 x10(3)/ L [facility] RDW Standard Deviation 47.2(H) 37.0 - 46.0 fL [facility] RDW coefficient of variation 12.9 11.5 - 14.1 % [facility] Mean Platelet Volume 11.5 7.6 - 12.9 fL [facility] NRBC% auto 0.0 % [facility] NRBC Absolute 0.000 0.000 - 0.000 x10(3)/mc L [facility] Blood 03/06/2022 10:1 5 AM EDT 03/06/2022 10:21 AM EDT Narrative Resulting Agency Comment Spec In Lab Maryam MUELLER HEMATOLOGY ORDERABL ES [facility] [place] [address] * Phosphorus (03/06/2022 10:15 AM EDT) Phosphorus 3.3 2.5 - 4.5 mg/dL [facility] Blood 03/06/2022 10:1 5 AM EDT 03/06/2022 10:21 AM EDT Narrative Resulting Agency Comment Spec In Lab Shania Will MD CHEMISTRY ORDERABLE S Performing Organization Address City/[facility]/ZIP Co de Phone Number [facility] [place] [address] * Magnesium (03/06/2022 10:15 AM EDT) Magnesium 0.69 0.69 - 1.07 mmol/L [facility] Blood 03/06/2022 10:1 5 AM EDT 03/06/2022 10:21 AM EDT Narrative Resulting Agency Comment Spec In Lab Shania Will MD CHEMISTRY ORDERABLE S Performing Organization Address [facility] Co de Phone Number [facility] [address] * (ABNORMAL) Basic Metabolic Panel (non-fasting) (03/06/2022 10:15 AM EDT) Pathologist [facility] Glucose 155 65 - 199 mg/dL [facility] Comment:Diabetes: >=200 mg/d L plus symptoms Blood Urea Nitrogen 29(H) 8 - 18 mg/dL [facility] - 107 mmol/L [facility] Carbon Dioxide 23 22 - 31 mmol/L [facility] Anion Gap 10 5 - 15 mmol/L [facility] Calcium 8.9 8.5 - 10.5 mg/dL [facility] Est Glomerular Filtration Rate 45(L) >=60 mL/min/1. 73 m?? [facility] [...] MD CHEMISTRY ORDERABLE S Performing Organization Address City/State/[facility] Co de Phone Number [facility] [address] * (ABNORMAL) Differential, Automated (03/06/2022 4:29 AM EDT) Neutrophil % 90.5 % [facility] Neutrophil Absolute 4.47 1.70 - 6.10 x10(3)/mc L [facility] Lymph % 6.9 % [facility] Lymphocytes Abs 0.3(L) 0.9 - 3.2 x10(3)/mc L [facility] Monocyte % 2.2 % [facility] Monocyte Abs 0.1(L) 0.3 - 0.9 x10(3)/mc L [facility] Eos % 0.0 % [facility] Eosinophils Abs 0.0 0.0 - 0.4 x10(3)/mc L [facility] Basophil % 0.2 % [facility] Baso Absolute 0.0 0.0 - 0.1 x10(3)/mc L [facility] Immature Gran % 0.20 % [facility] Comment: Immature granulocytes(IG's)percentage and absolute count will include metamyelocytes, myelocytes, and promyelocytes. Blood smears from CBCs yielding IG's will be scanned manually for concordance. If this scan disagrees with the automated IG or if promyelocytes are noted, a manual differential will be performed. Immature Gran Absolute 0.01 0.00 - 0.04 x10(3)/ L [facility] Blood 03/06/2022 4:29 AM EDT 03/06/2022 4:49 AM EDT Narrative Resulting Agency Comment Spec In Lab Prakash Mendez MD HEMATOLOGY ORDERABLE S [facility] [address] * (ABNORMAL) Hemogram (03/06/2022 4:29 AM EDT) White Blood Cell 4.9 4.0 - 9.5 x10(3)/ L [facility] Red Blood Cell 3.08(L) 4.00 - 5.21 x10(6)/ L [facility] Hemoglobin 10.5(L) 11.7 - 15.5 g/dL [facility] Hematocrit 31.0(L) 35.7 - 45.8 % [facility] Mean Cell Volume 100.6(H) 82.6 - 94.4 fL [facility] Mean Cell Hemoglobin 34.1(H) 27.1 - 32.0 pg [facility] Mean Cell Hemoglobin Concentration 33.9 31.7 - 35.0 g/dL [facility] Platelet 104(L) 145 - 357 x10(3)/ L [facility] RDW Standard Deviation 47.5(H) 37.0 - 46.0 fL [facility] RDW coefficient of variation 12.9 11.5 - 14.1 % [facility] Mean Platelet Volume 11.8 7.6 - 12.9 fL [facility] NRBC% auto 0.0 % [facility] NRBC Absolute 0.000 0.000 - 0.000 x10(3)/mc L [facility] Blood 03/06/2022 4:29 AM EDT 03/06/2022 4:49 AM EDT Narrative Resulting Agency Comment Spec In Lab Prakash Mendez MD HEMATOLOGY ORDERABLE S [facility] [place] [address] * (ABNORMAL) Basic Metabolic Panel (non-fasting) (03/06/2022 4:29 AM EDT) Glucose 140 65 - 199 mg/dL [facility] Comment:Diabetes: >=200 mg/d L plus symptoms Blood Urea Nitrogen 31(H) 8 - 18 mg/dL [facility] - 107 mmol/L [facility] Carbon Dioxide 23 22 - 31 mmol/L [facility] Anion Gap 10 5 - 15 mmol/L [facility] Calcium 9.0 8.5 - 10.5 mg/dL [facility] Est Glomerular Filtration Rate 42(L) >=60 mL/min/1. 73 m?? [facility] [...] CHEMISTRY ORDERABLE S [facility] [place] [address] * POCT Glucose (03/05/2022 12:18 PM EDT) Glucose, POC 94 65 - 199 mg/dL [facility] Comment: Supplemental ranges: <140 mg/dL before meals <180 mg/dL all other times of the day Blood 03/05/2022 12:1 8 PM EDT 03/05/2022 12:18 PM EDT Shania Will MD POINT OF CARE TEST ORDERABLES Performing Organization Address City/[facility]/ZIP Co de Phone Number [facility] [address] documented in this encounter Visit Diagnoses Diagnosis [...] Pretty Hampton RN)1018 (Given - Provider: Olga Ocampo, CONNIE)1702 (Given - Provider: Olga Ocampo, CONNIE)2239 (Given - Provider: Tamanna Villalobos LPN) 0503 (Given - Provider: Tamanna Villalobos LPN)1000 (Given - Provider: Olga Ocampo, CONNIE) acetaminophen (Tylenol) tablet 975 mg (COMPLETED) 975 [...] Olga Ocampo RN)1702 (Given - Provider: Olga Ocampo, RN) 0824 (Given - Provider: Olga Ocampo, RN) enoxaparin (Lovenox) (40 mg/0.4 mL) subcutaneous [...] Unit) documented in this encounter Care Teams Hairspring I Inspector Relationship Specialty Start Date End Date Ana Her MD Geovany [address] [place] [address] PCP - General 07/29/13 documented as of this encounter
--- OUTSIDE RECORDS SUMMARY | 2024-04-18 12:26 | XMS_ITS | Encounter Summary ---
[place] [address] Care Team Providers Care Hardware Developer Name Role Phone Ana Her MD Primary Care Provider [phone] Reason for Visit * Auth/Cert Specialty Diagnoses / Procedures Referred By Christiano hackett Referred To Contact Diagnoses S/P repair of paraesophageal hernia Post-Op monitoring Procedures PRO LAPARSCOPY REPAIR PARAESOPHAGEAL HERNIA INCL FUNDOPLASTY W/O MESH LAPAROSCOPIC PARAESOPHAGEAL HERNIA REPAIR W/FUNDOPLASTY, W/O MESH (WRVU 26.6) MODIFIER TOUPET FUNDOPLASTY Shania Will MD [facility] [place] [address] [facility] Referral ID Status Reason Start Date Expiration Date Visits Re quested Visits Authorized [id number] 1 1 Encounter Details Date Type Department Care Team (Late st Contact Info) Description 03/05/2022 12:54 PM EDT - 03/05/2022 4:55 PM EDT Surgery [place] [id number] Shania Will MD [facility] [place] [address] LAPAROSCOPIC PARAESOPHAGEAL HERNIA REPAIR W/FUNDOPLASTY, W/O MESH [...] of left breast of female, estrogen receptor [id number], Z17.0 ??? Anemia D64.9 ??? Aortic valve [...] Per chart review, her creatinine levels in 0817-0076 ranged from 0.87-1.50 indicative of possible undiagnosed [...] PM Shania Will MD General [place] [facility] Arrive at: Steam Turbine Operator Area [phone] Instructions Given to Patient at Discharge: Patient [...] hours please call the Surgery Clinic at [phone] before 5 PM on weekdays. For questions after hours and on weekends please call the hospital production assembly operator at [phone] and ask for the General Surgery resident aviation engineer. They may not be familiar with your [...] post Sly diet, as instructed by the mail carrier in the hospital for a period of [...] renal function. Please call the clinic at [phone] to confirm or reschedule. Future Appointments Date Time Provider Department Center 04/03/2022 12:[address] [facility] General Instructions None Future Appointments and Orders Future Appointments and Orders Future Appointments Provider Department Dept Phone 04/03/2022 12:00 PM Shania Will MD General Surgery [place] [facility] Arrive at: Steam Turbine Operator Area 4L [phone] Signed: Shena Harden MD 03/07/22 7:18 AM [phone] Primary Saima Physician: MD Geovany David DR [facility] [id number] documented in this encounter Discharge Instructions * [...] hours please call the Surgery Clinic at [phone] before 5 PM on weekdays. For questions after hours and on weekends please call the hospital production assembly operator at [phone] and ask for the General Surgery resident aviation engineer. They may not be familiar with your [...] post Sly diet, as instructed by the mail carrier in the hospital for a period of [...] renal function. Please call the clinic at [phone] to confirm or reschedule. Future Appointments Date Time Provider Department Center 04/03/2022 12:[address] [facility] documented in this encounter Medications at Time [...] Ocampo RN - 03/07/2022 10:25 AM EDT [facility] Short Stay Unit Discharge Note [...] Sly Diet Education to pt Digna Olson. Construction Framer metwith pt at bedside to deliver full [...] she is noticing some overall improvement post op.Construction Framer took note of this and encouraged the [...] Department contact information provided. Pt appreciate of radio news writer's time. Nutrition to follow as needed. [...] Perez MD 03/05/2022 Minimally Invasive Surgery Pager #[phone] * Lorrie Slater RN - 03/05/2022 6:46 [...] of left breast of female, estrogen receptor [id number], Z17.0 ??? Anemia D64.9 ??? Aortic valve [...] 6.43) performed by Malika Chen MD at [facility] MAIN OR ??? PRO INTRAOP SENTINEL LYMPH ID W/DYE INJECTION Left 03/30/2017 ?? INTRAOPERATIVE ID (MAPPING) SENTINEL LYMPH NODE,INCLUDES INJECTION (WRVU 2.5) performed by Malika Chen MD at [facility] MAIN OR ??? PRO MASTECTOMY PARTIAL Left 03/30/2017 ?? MASTECTOMY PARTIAL (WRVU 10.13) performed by Malika Chen MD at [facility] MAIN OR ?? Cholecystectomy ?? [...] Operative Note Patient Name: Digna Olson : [id number] MR#: [id number] Case Date: 03/05/2022 Surgeon: Surgeon(s) and Role: [...] Flores MD - 03/05/2022 2:[address] [facility] Operative Note Patient Name: Digna Olson : [id number] MR#: [id number] Case Date: 03/05/2022 Surgeon: Surgeon(s) and Role: [...] mediastinal dissection to mobilize the esophagus. A [place] which was placed around the esophagus was [...] Repair Paraesophageal Hernia Incl Fundoplasty W/O Mesh (48792) 03/05/2022 1:58 PM EDT Paraesophageal Hernia POCT GLUCOSE Routine 03/05/2022 12:18 PM EDT LAPAROSCOPIC PARAESOPHAGEAL HERNIA REPAIR W FUNDOPLASTY, W/O MESH Routine 03/05/2022 12:02 PM EDT documented in this encounter Results * (ABNORMAL) Differential, Automated (03/07/2022 5:08 AM EDT) Neutrophil % 80.0 % [facility] Neutrophil Absolute 5.30 1.70 - 6.10 x10(3)/mc L [facility] Lymph % 12.1 % [facility] Lymphocytes Abs 0.8(L) 0.9 - 3.2 x10(3)/mc L [facility] Monocyte % 7.6 % [facility] Monocyte Abs 0.5 0.3 - 0.9 x10(3)/mc L [facility] Eos % 0.0 % [facility] Eosinophils Abs 0.0 0.0 - 0.4 x10(3)/[facility] Basophil % 0.0 % [facility] Baso Absolute 0.0 0.0 - 0.1 x10(3)/[facility] Immature Gran % 0.30 % [facility] Comment: Immature granulocytes(IG's)percentage and absolute count will include metamyelocytes, myelocytes, and promyelocytes. Blood smears from CBCs yielding IG's will be scanned manually for concordance. If this scan disagrees with the automated IG or if promyelocytes are noted, a manual differential will be performed. Immature Gran Absolute 0.02 0.00 - 0.04 x10(3)/[facility] Blood 03/07/2022 5:08 AM EDT 03/07/2022 5:19 AM EDT Narrative Resulting Agency Comment Spec In Lab Nino Levy MD HEMATOLOGY ORDERABLE S [facility] [place] [address] * (ABNORMAL) Hemogram (03/07/2022 5:08 AM EDT) White Blood Cell 6.6 4.0 - 9.5 x10(3)/[facility] Red Blood Cell 3.16(L) 4.00 - 5.21 x10(6)/[facility] Hemoglobin 10.7(L) 11.7 - 15.5 g/dL [facility] Hematocrit 31.7(L) 35.7 - 45.8 % [facility] Mean Cell Volume 100.3(H) 82.6 - 94.4 fL [facility] Mean Cell Hemoglobin 33.9(H) 27.1 - 32.0 pg [facility] Mean Cell Hemoglobin Concentration 33.8 31.7 - 35.0 g/dL [facility] Platelet 110(L) 145 - 357 x10(3)/mc L [facility] RDW Standard Deviation 47.5(H) 37.0 - 46.0 [facility] RDW coefficient of variation 12.9 11.5 - 14.1 % [facility] Mean Platelet Volume 11.7 7.6 - 12.9 [facility] NRBC% auto 0.0 % [facility] NRBC Absolute 0.000 0.000 - 0.000 x10(3)/mc L [facility] Blood 03/07/2022 5:08 AM EDT 03/07/2022 5:19 AM EDT Narrative Resulting Agency Comment Spec In Lab Nino Levy MD HEMATOLOGY ORDERABLE S Performing Organization Address City/[facility]/[place] [address] * Phosphorus (03/07/2022 5:08 AM EDT) Phosphorus 2.7 2.5 - 4.5 mg/dL [facility] Blood 03/07/2022 5:08 AM EDT 03/07/2022 5:19 AM EDT Narrative Resulting Agency Comment Spec In Lab Shania Will MD CHEMISTRY ORDERABLE S Performing Organization Address City/[facility]/ZIP Co de Phone Number [facility] [place] [address] * Magnesium (03/07/2022 5:08 AM EDT) Magnesium 0.89 0.69 - 1.07 mmol/L [facility] Blood 03/07/2022 5:08 AM EDT 03/07/2022 5:19 AM EDT Narrative Resulting Agency Comment Spec In Lab Shania Will MD CHEMISTRY ORDERABLE S [facility] [place] [address] * (ABNORMAL) Basic Metabolic Panel (non-fasting) (03/07/2022 5:08 AM EDT) Glucose 111 65 - 199 mg/dL [facility] Comment:Diabetes: >=200 mg/d L plus symptoms Blood Urea Nitrogen 22(H) 8 - 18 mg/dL [facility] Creatinine 0.93 0.70 - 1.20 mg/dL [facility] Sodium 131(L) 135 - 145 mmol/L [facility] Potassium 4.5 3.5 - 5.0 mmol/L [facility] Comment: Please note: ??Patients with WBC >100,000 may have falsely elevated Potassium levels. ??For accurate Potassium quantification in these patients send serum separator tube (gold top) for subsequent determinations. ??Contact the Clinical Chemistry Laboratory if there are any questions. Chloride 100 98 - 107 mmol/L [facility] Carbon Dioxide 22 22 - 31 mmol/L [facility] Anion Gap 9 5 - 15 mmol/L [facility] Calcium 9.2 8.5 - 10.5 mg/dL [facility] Est Glomerular Filtration Rate 64 >=60 mL/min/1. 73 m?? [facility] Comment: This patient's estimated GFR [...] MD CHEMISTRY ORDERABLE S Performing Organization Address City/[facility]/ZIP Co de Phone Number [facility] [place] [address] * (ABNORMAL) Differential, Automated (03/06/2022 10:15 AM EDT) Neutrophil % 90.7 % [facility] Neutrophil Absolute 5.79 1.70 - 6.10 x10(3)/mc L [facility] Lymph % 5.0 % [facility] Lymphocytes Abs 0.3(L) 0.9 - 3.2 x10(3)/mc L [facility] Monocyte % 3.8 % [facility] Monocyte Abs 0.2(L) 0.3 - 0.9 x10(3)/mc L [facility] Eos % 0.0 % [facility] Eosinophils Abs 0.0 0.0 - 0.4 x10(3)/[facility] Basophil % 0.0 % [facility] Baso Absolute 0.0 0.0 - 0.1 x10(3)/ L [facility] Immature Gran % 0.50 % [facility] Comment: Immature granulocytes(IG's)percentage and absolute count will include metamyelocytes, myelocytes, and promyelocytes. Blood smears from CBCs yielding IG's will be scanned manually for concordance. If this scan disagrees with the automated IG or if promyelocytes are noted, a manual differential will be performed. Immature Gran Absolute 0.03 0.00 - 0.04 x10(3)/mc L [facility] Blood 03/06/2022 10:1 5 AM EDT 03/06/2022 10:21 AM EDT Narrative Resulting Agency Comment Spec In Lab Maryam MUELLER HEMATOLOGY ORDERABL ES Performing Organization Address City/[facility]/ZIP Co de Phone Number [facility] [place] [address] * (ABNORMAL) Hemogram (03/06/2022 10:15 AM EDT) White Blood Cell 6.4 4.0 - 9.5 x10(3)/mc L [facility] Red Blood Cell 3.07(L) 4.00 - 5.21 x10(6)/mc L [facility] Hemoglobin 10.5(L) 11.7 - 15.5 g/dL [facility] Hematocrit 31.1(L) 35.7 - 45.8 % [facility] Mean Cell Volume 101.3(H) 82.6 - 94.4 fL [facility] Mean Cell Hemoglobin 34.2(H) 27.1 - 32.0 pg [facility] Mean Cell Hemoglobin Concentration 33.8 31.7 - 35.0 g/dL [facility] Platelet 111(L) 145 - 357 x10(3)/[facility] RDW Standard Deviation 47.2(H) 37.0 - 46.0 [facility] RDW coefficient of variation 12.9 11.5 - 14.1 % [facility] Mean Platelet Volume 11.5 7.6 - 12.9 [facility] NRBC% auto 0.0 % [facility] NRBC Absolute 0.000 0.000 - 0.000 x10(3)/ L [facility] Blood 03/06/2022 10:1 5 AM EDT 03/06/2022 10:21 AM EDT Narrative Resulting Agency Comment Spec In Lab Maryam MUELLER HEMATOLOGY ORDERABL ES [facility] [place] [address] * Phosphorus (03/06/2022 10:15 AM EDT) Phosphorus 3.3 2.5 - 4.5 mg/dL [facility] Blood 03/06/2022 10:1 5 AM EDT 03/06/2022 10:21 AM EDT Narrative Resulting Agency Comment Spec In Lab Shania Will MD CHEMISTRY ORDERABLE S [facility] [place] [address] * Magnesium (03/06/2022 10:15 AM EDT) Magnesium 0.69 0.69 - 1.07 mmol/L [facility] Blood 03/06/2022 10:1 5 AM EDT 03/06/2022 10:21 AM EDT Narrative Resulting Agency Comment Spec In Lab Shania Will MD CHEMISTRY ORDERABLE S Performing Organization Address City/[facility]/ZIP Co de Phone Number [facility] [place] [address] * (ABNORMAL) Basic Metabolic Panel (non-fasting) (03/06/2022 10:15 AM EDT) Glucose 155 65 - 199 mg/dL [facility] Comment:Diabetes: >=200 mg/d L plus symptoms Blood Urea Nitrogen 29(H) 8 - 18 mg/dL [facility] Creatinine 1.25(H) 0.70 - 1.20 mg/dL [facility] Sodium 134(L) 135 - 145 mmol/L [facility] [...] 98 - 107 mmol/L [facility] Carbon Dioxide 23 22 - 31 mmol/L [facility] Anion Gap 10 5 - 15 mmol/L [facility] Calcium 8.9 8.5 - 10.5 mg/dL [facility] Est Glomerular Filtration Rate 45(L) >=60 mL/min/1. 73 m?? [facility] Comment: This patient's estimated GFR [...] MD CHEMISTRY ORDERABLE S Performing Organization Address City/State/[facility] Co de Phone Number [facility] [place] [address] * (ABNORMAL) Differential, Automated (03/06/2022 4:29 AM EDT) Neutrophil % 90.5 % [facility] Neutrophil Absolute 4.47 1.70 - 6.10 x10(3)/mc L [facility] Lymph % 6.9 % [facility] Lymphocytes Abs 0.3(L) 0.9 - 3.2 x10(3)/mc L [facility] Monocyte % 2.2 % [facility] Monocyte Abs 0.1(L) 0.3 - 0.9 x10(3)/mc L [facility] Eos % 0.0 % [facility] Eosinophils Abs 0.0 0.0 - 0.4 x10(3)/mc L [facility] Basophil % 0.2 % [facility] Baso Absolute 0.0 0.0 - 0.1 x10(3)/mc L [facility] Immature Gran % 0.20 % [facility] Comment: Immature granulocytes(IG's)percentage and absolute count will include metamyelocytes, myelocytes, and promyelocytes. Blood smears from CBCs yielding IG's will be scanned manually for concordance. If this scan disagrees with the automated IG or if promyelocytes are noted, a manual differential will be performed. Immature Gran Absolute 0.01 0.00 - 0.04 x10(3)/[facility] Blood 03/06/2022 4:29 AM EDT 03/06/2022 4:49 AM EDT Narrative Resulting Agency Comment Spec In Lab Prakash Mendez MD HEMATOLOGY ORDERABLE S [facility] [place] [address] * (ABNORMAL) Hemogram (03/06/2022 4:29 AM EDT) White Blood Cell 4.9 4.0 - 9.5 x10(3)/[facility] Red Blood Cell 3.08(L) 4.00 - 5.21 x10(6)/[facility] Hemoglobin 10.5(L) 11.7 - 15.5 g/dL [facility] Hematocrit 31.0(L) 35.7 - 45.8 % [facility] Mean Cell Volume 100.6(H) 82.6 - 94.4 fL [facility] Mean Cell Hemoglobin 34.1(H) 27.1 - 32.0 pg [facility] Mean Cell Hemoglobin Concentration 33.9 31.7 - 35.0 g/dL [facility] Platelet 104(L) 145 - 357 x10(3)/[facility] RDW Standard Deviation 47.5(H) 37.0 - 46.0 fL [facility] RDW coefficient of variation 12.9 11.5 - 14.1 % [facility] Mean Platelet Volume 11.8 7.6 - 12.9 fL [facility] NRBC% auto 0.0 % [facility] NRBC Absolute 0.000 0.000 - 0.000 x10(3)/mc L [facility] Blood 03/06/2022 4:29 AM EDT 03/06/2022 4:49 AM EDT Narrative Resulting Agency Comment Spec In Lab Prakash Mendez MD HEMATOLOGY ORDERABLE S [facility] [place] [address] * (ABNORMAL) Basic Metabolic Panel (non-fasting) (03/06/2022 4:29 AM EDT) Glucose 140 65 - 199 mg/dL [facility] Comment:Diabetes: >=200 mg/d L plus symptoms Blood Urea Nitrogen 31(H) 8 - 18 mg/dL [facility] Creatinine 1.32(H) 0.70 - 1.20 mg/dL [facility] Sodium 136 135 - 145 mmol/L [facility] Potassium 5.3(H) 3.5 - 5.0 mmol/L [facility] Comment: Please note: ??Patients with WBC >100,000 may have falsely elevated Potassium levels. ??For accurate Potassium quantification in these patients send serum separator tube (gold top) for subsequent determinations. ??Contact the Clinical Chemistry Laboratory if there are any questions. Chloride 103 98 - 107 mmol/L [facility] Carbon Dioxide 23 22 - 31 mmol/L [facility] Anion Gap 10 5 - 15 mmol/L [facility] Calcium 9.0 8.5 - 10.5 mg/dL [facility] Est Glomerular Filtration Rate 42(L) >=60 mL/min/1. 73 m?? [facility] Comment: This patient's estimated GFR [...] MD CHEMISTRY ORDERABLE S Performing Organization Address City/[facility]/ZIP Co de Phone Number [facility] [place] [address] * POCT Glucose (03/05/2022 12:18 PM EDT) Glucose, POC 94 65 - 199 mg/dL [facility] Comment: Supplemental ranges: <140 mg/dL before meals <180 mg/dL all other times of the day Blood 03/05/2022 12:1 8 PM EDT 03/05/2022 12:18 PM EDT Shania Will MD POINT OF CARE TEST ORDERABLES Performing Organization Address City/[facility]/ZIP Co de Phone Number [facility] [place] [address] documented in this encounter Visit Diagnoses Not [...] indicated. , Routine 2221 (Given - Provider: Alysas Perales RN) 0403 (Given - Provider: Pretty [...] RN) 0856 (Given - Provider: Olga Ocampo, CONNIE)223 (Given - Provider: Tamanna Villalobos LPN - [...] Radha 03/06/22 at 2200, Until Discontinued, Routine 223 (Given - Provider: Tamanna Villalobos LPN) 0618 [...] 2145, Until Discontinued, Recovery (Recovery-Hospital Unit), Routine 222 (Given - Provider: Alyssa Perales RN) 0856 [...] (Recovery-Hospital Unit) 1849 (New Bag - Provider: Lorire Slater, CONNIE) lactated ringers infusion 50 mL/hr, [...] Until Thu03/07/22 at 1247, Intra-Operative (Intra-Procedure), Routine 165 (Given - Provider: Prakash Mendez)1754 (Given - [...] Ketorolac., Routine 191 (Given - Provider: Lorrie Slater, CONNIE) lidocaine [...] Unit) documented in this encounter Care Teams Hardware Developer Relationship Specialty Start Date End Date Ana Her MD [address] [facility] [address] [place] [address] PCP - General 07/29/13 documented as of this encounter
--- OUTSIDE RECORDS SUMMARY | 2024-04-18 12:26 | XMS_ITS | Encounter Summary ---
[place] [address] Care Team Providers Care Respiratory Clinician Name Role Phone Ana Her MD Primary Care Provider [phone] Encounter Details Date Type Department Care Team (Late st Contact Info) Description 12/24/2021 Telephone [place] [id number] Chelsie Lauren Social History Tobacco Use Types [...] on filedocumented in this encounter Care Teams Respiratory Clinician Relationship Specialty Start Date End Date Ana Her MD [address] [place] [address] PCP - General 07/29/13 documented as of this encounter
--- OUTSIDE RECORDS SUMMARY | 2024-04-18 12:26 | XMS_ITS | Encounter Summary ---
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 Alma Delia opted against [...] ??Excision with image-guided localization ?Lymph Node Sampling: ??[place] lymph node(s) ?Specimen Laterality: ??Left Tumor ?Histologic [...] ??DCIS not present in specimen Lymph Nodes ?[place] Lymph Nodes: [place] lymph node biopsy performed ?Number of [place] Nodes Examined: ??3 ?Number of Lymph Node(s) [...] herex- speak almost daily. He lives in [place] [...] situation. Results: Imaging performed (bilateral mammogram) at [facility] today shows no evidence of malignancy, BIRADS [...] available at [employer] ([employer]) and [employer]. All questions were answered to the patient's satisfaction and they state understanding and agreement with today's treatment plan. They are encouraged to follow up sooner if they develop any new or concerning symptoms. Jeanine Lobato APRN Surgical Oncology P [phone] F [phone] [facility] documented in this encounter Plan of [...] who have questions please contact the health adult day care worker that requested your imaging first. ? Electronically signed by: Digna Noel MD, [facility] ([phone]), at 06/11/2021 9:20 AM Jeanine Lobato APRN [...] mammogram documented in this encounter Care Teams Document Coordinator Relationship Specialty Start Date End Date Ana Her MD [facility] [address] [place] [address] PCP - General 07/29/13 documented as of this encounter
--- OUTSIDE RECORDS SUMMARY | 2024-04-18 12:26 | XMS_ITS | Encounter Summary ---
Author Organization [facility] Address [facility] [place] [address] Care Team Providers Care Director College Name Role Phone Ana Her MD Primary Care Provider [phone] Encounter Details Date Type Department Care Team (Late st Contact Info) Description 09/03/2021 Ancillary Procedure Radiology Library at [facility] [place], [place] [address] Laura Will MD [facility] [place] [address] Social History Tobacco Use Types Packs/Day Years [...] CT Chest (09/03/2021 12:00 AM EDT) Narrative [facility] - 11/28/2021 1:22 PM EDT This exam is auto-finalizing. It's purpose is for storage only. Laura Will MD IMG FILM LIBRARY OR DERABLES Performing Organization Address City/State/[facility] Co de Phone Number [place], [place] documented in this encounter Visit Diagnoses Not on filedocumented in this encounter Care Teams Director College Relationship Specialty Start Date End Date Ana Her MD [address] [facility] [address] [place] [address] PCP - General 07/29/13 documented as of this encounter
--- OUTSIDE RECORDS SUMMARY | 2024-04-18 12:26 | XMS_ITS | Encounter Summary ---
[place] [address] Care Team Providers Care Lime Plant Operator Name Role Phone Ana Her MD Primary Care Provider [phone] 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 * Consultation (Routine) - Closed Specialty Diagnoses / Procedures Referred By Christiano hackett Referred To Contact General Surgery Diagnoses Hiatal hernia Ana Her MD [address] [place] [address] [facility] Gen Surgery [address] [place] [phone] Referral ID Status Reason Start Date Expiration Date V isits Requested Visits Authorized [id number] Closed Consult, Test & Treat 09/23/2021 09/23/2022 6 6 Encounter Details Date Type Department Care Team (Late st Contact Info) Description 09/23/2021 Transcribe Orders eDH Incoming Referrals [phone] Ana Her MD [address] [place] [address] Hiatal hernia Social History Tobacco [...] gangrene documented in this encounter Care Teams Lime Plant Operator Relationship Specialty Start Date End Date Ana Her MD [address] [place] [address] PCP - General 07/29/13 documented as of this encounter
--- OUTSIDE RECORDS SUMMARY | 2024-04-18 12:26 | XMS_ITS | Encounter Summary ---
[place] [address] Care Team Providers Care Home Theater Installer Name Role Phone Ana Her MD Primary Care Provider [phone] Reason for Visit * Auth/Cert Specialty Diagnoses / Procedures Referred By Christiano hackett Referred To Contact Diagnoses S/P repair of paraesophageal hernia Post-Op monitoring Procedures PRO LAPARSCOPY REPAIR PARAESOPHAGEAL HERNIA INCL FUNDOPLASTY W/O MESH LAPAROSCOPIC PARAESOPHAGEAL HERNIA REPAIR W/FUNDOPLASTY, W/O MESH (WRVU 26.6) MODIFIER TOUPET FUNDOPLASTY Laura Will MD [facility] [place] [address] [facility] Referral ID Status Reason Start Date Expiration Date Visits Re quested Visits Authorized [id number] 1 1 Encounter Details Date Type Department Care Team (Late st Contact Info) Description 03/05/2022 1:58 PM EDT Anesthesia [place] [phone] Alisa Naqvi MD [facility] DR ANESTHES[place] [address] Alessia Ramirez [place] [address] Anesthesia Record Procedure Summary Procedure Name Responsible [...] Procedure Summary Date: 03/05/22 Room / Location: [address] MAIN OR Anesthesia Start: 8 Anesthesia Stop: 1823 Procedures: LAPAROSCOPIC PARAESOPHAGEAL HERNIA REPAIR W/FUNDOPLASTY, W/O MESH (WRVU 26.6) (N/A Abdomen) MODIFIER TOUPET FUNDOPLASTY (N/A Abdomen) Diagnosis: (Paraesophageal Hernia) Surgeons: Laura Will MD Responsible Provider: Alisa Naqvi MD Anesthesia Type: general ASA Status: 3 All Anesthesia Providers: Anesthesiologist: Brayan Hubbard MD; Alisa Naqvi MD; Dario Franco MD Observer Helper: oM Vance DO Vitals Value Taken Time BP 125/75 03/05/22 1821 Temp Pulse 77 03/05/22 1823 Resp 18 03/05/22 1823 SpO2 100 % 03/05/22 182 Pain Level Vitals shown include unvalidated device data. Patient Location: PACU/[facility] Level of Consciousness: Awake and Alert Pain [...] of left breast of female, estrogen receptor jeexhsax27/25/2017 ??? Bicuspid aortic valve 06/10/2016 ??? Dyspnea [...] 6.43) performed by Malika Chen MD at [facility] MAIN OR ??? PRO INTRAOP SENTINEL LYMPH ID W/DYE INJECTION Left 03/30/2017 INTRAOPERATIVE ID (MAPPING) SENTINEL LYMPH NODE,INCLUDES INJECTION (WRVU 2.5) performed by Malika Chen MD at [facility] MAIN OR ??? PRO MASTECTOMY PARTIAL Left 03/30/2017 MASTECTOMY PARTIAL (WRVU 10.13) performed by Malika Chen MD at [facility] MAIN OR ??? PRO UPPER GI ENDOSCOPY, DIAGNOSTIC N/A 01/08/2022 EGD, UPPER GI ENDOSCOPY performed by Laura Will MD at [facility] MAIN OR Social History Tobacco Use [...] sneeze Cardiac Hx: Exercise stress test 10/07/21 [facility]: Resting electrocardiogram showed atrial fibrillation, right BBB, left anterior fascicular block. Patient achieved 4.64METS, achieved 93% of predicted HR for age. Electrocardiographic portion of test negative for ischemia. MPI negative for ischemia or infarction. EF 45%. Wall motion normal. ?? Echo 06/19/21 ([facility]): normal biventricular size and function, symmetric LVH. [...] PONV ppx Mo Shreyas DO Pinky 03/04/2022 Felt Hat Steamer Pager #[phone] Region - Other Informed Consent: Anesthetic plan [...] GERD (omeprazole) ?? Exercise stress test 10/07/21 [facility]: Resting electrocardiogram showed atrial fibrillation, right BBB, left anterior fascicular block. Patient achieved 4.64METS, achieved 93% of predicted HR for age. Electrocardiographic portion of test negative for ischemia. MPI negative for ischemia or infarction. EF 45%. Wall motion normal. ?? Echo 06/19/21 ([facility]): normal biventricular size and function, [...] 1 view ?? Followed by cardiology at [facility], notes under Care Everywhere. Last seen [...] mg documented in this encounter Care Teams Home Theater Installer Relationship Specialty Start Date End Date Ana Her MD [address] [facility] [place] [address] PCP - General 07/29/13 documented as of this encounter
--- OUTSIDE RECORDS SUMMARY | 2024-04-18 12:26 | XMS_ITS | Encounter Summary ---
Author Organization [facility] [place] [address] Care Team Providers Care Maintenance Repairer Name Role Phone Ana Her MD Primary Care Provider [phone] Encounter Details Date Type Department Care Team (Latest Contact Info) Description 06/11/2021 8:41 AM EST - 06/11/2021 11:59 PM [facility] Hospital Encounter Mammography/[place] [phone] Jeanine Lobato APRN [facility] [place] [address] Malignant neoplasm of lower-outer quadrant of left [...] Take 40 mg by mouth daily. omega 7-exh-vmn-fish-turm salty 417 mg-120 mg- 276 mg-600 mg [...] who have questions please contact the health physician assistant primary care that requested your imaging first. ? Jeanine Lobato TELEPHONE CLERK IMG MAMMO ORD ERABLES documented in this encounter Visit Diagnoses Diagnosis 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, estrogen receptor positive Breast cancer screening by mammogram documented in this encounter Care Teams Maintenance Repairer Relationship Specialty Start Date End Date Ana Her MD [address] [place] [address] PCP - General 07/29/13 documented as of this encounter
--- OUTSIDE RECORDS SUMMARY | 2024-04-18 12:26 | XMS_ITS | Encounter Summary ---
[place] [address] Care Team Providers Care Van Cdl Driver Name Role Phone Ana Her MD Primary Care Provider [phone] Encounter Details Date Type Department Care Team (Late st Contact Info) Description 06/12/2021 Telephone [place] [phone] Chelsie Lauren Social History Tobacco Use Types [...] on filedocumented in this encounter Care Teams Van Cdl Driver Relationship Specialty Start Date End Date Ana Her MD [address] [place] [address] PCP - General 07/29/13 documented as of this encounter
--- OUTSIDE RECORDS SUMMARY | 2024-04-18 12:26 | XMS_ITS | Encounter Summary ---
Author Organization [facility] [place] [address] Care Team Providers Care Financial Administrator Name Role Phone Ana Her MD Primary Care Provider [phone] Encounter Details Date Type Department Care Team (Latest Contact Info) Description 01/23/2022 12:15 PM EDT TH Visit (TeleHealth) [place] [address] Laura Will MD [facility] [place] [address] Paraesophageal hernia Social History Tobacco Use Types [...] her. She is followed by cardiology at [facility], and is on xarelto. Impression: Symptomatic paraesophageal [...] gangrene documented in this encounter Care Teams Financial Administrator Relationship Specialty Start Date End Date Ana Her MD [address] [facility] [place] [address] PCP - General 07/29/13 documented as of this encounter
--- OUTSIDE RECORDS SUMMARY | 2024-04-18 12:26 | XMS_ITS | Encounter Summary ---
Author [place] [address] Care Team Providers Care Construction Quality Control Manager Name Role Phone Ana Her MD Primary Care Provider [phone] 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 * Consultation (Routine) - Closed Specialty Diagnoses / Procedures Referred By Christiano hackett Referred To Contact Plastic Surgery Diagnoses 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, estrogen receptor positive Macromastia Jeanine Lobato APRN [facility] [place] [address] [facility] Plastic Surg [address] [address] Referral ID Status Reason Start Date Expiration Date V isits Requested Visits Authorized [id number] Closed Consult, Test & Treat 06/11/2021 06/11/2022 1 1 Encounter Details Date Type Department Care Team (Late st Contact Info) Description 06/11/2021 10:00 AM EST Office [place] [address] Jeanine Lobato APRN [facility] [place] [address] Encounter for follow-up surveillance of [...] this encounter Progress Notes * Jeanine Lobato, MUD GRINDER - 06/11/2021 10:00 AM EST Images from [...] was obtained which revealed IDC which is ER/TN positive, Her2 negative. Alma Delia opted against [...] mm Grade Intermediate Margins Negative ER Positive TN Positive HER-2 Negative OncotypeDx Recurrence Score N/A [...] Family history of ovarian cancer No Ashkenazi Anabaptism heritage No Known genetic mutation Not tested [...] situation. Results: Imaging performed (bilateral mammogram) at [facility] today shows no evidence of malignancy, BIRADS [...] free apps for your cell phone from [employer] ([employer]) and [employer] ([employer]). All questions were answered to the patient's satisfaction and they state understanding and agreement with today's treatment plan. They are encouraged to follow up sooner if they develop any new or concerning symptoms. Jeanine Lobato APRN Surgical Oncology P [phone] F [phone] [facility] documented in this encounter Plan of [...] breast documented in this encounter Care Teams Construction Quality Control Manager Relationship Specialty Start Date End Date Ana Her MD [address] [place] [address] PCP - General 07/29/13 documented as of this encounter
--- OUTSIDE RECORDS SUMMARY | 2024-04-18 12:26 | XMS_ITS | Encounter Summary ---
Author Organization [facility] [place] [address] Care Team Providers Care Structural Technician Name Role Phone Ana Her MD Primary Care Provider [phone] Encounter Details Date Type Department Care Team (Latest Contact Info) Description 04/03/2022 12:00 PM EST TH Visit (TeleHealth) [place] [address] Laura Will MD [facility] [place] [address] Status post repair of paraesophageal diaphragmatic hernia [...] status documented in this encounter Care Teams Structural Technician Relationship Specialty Start Date End Date Ana Her MD [facility] [address] [place] [address] PCP - General 07/29/13 documented as of this encounter
--- OUTSIDE RECORDS SUMMARY | 2024-04-18 12:26 | XMS_ITS | Encounter Summary ---
Author Organization [facility] [place] [address] Care Team Providers Care Repair Technician Name Role Phone Ana Her MD Primary Care Provider [phone] Encounter Details Date Type Department Care Team (Late st Contact Info) Description 03/09/2022 Telephone [place] [address] Prakash Mendez MD [facility] [place] [address] Social History Tobacco Use Types Packs/Day Years [...] the mobile number listed in her chart ([phone]). Her other daughter answered the phone and reported that she had just dropped her off in the Emergency Department at [facility] and parked the car. She was walking back to the building to be with her. I reassured her that going to the Emergency Department seemed like a reasonable plan. I assured her that we are always happy to see her here at [facility] anytime and that they could call back anytime with further questions or concerns. This note will be routed to the provider mentioned above. Prakash Mendez MD documented in this encounter Plan of Treatment Not on file documented as of this encounter Visit Diagnoses Not on filedocumented in this encounter Care Teams Repair Technician Relationship Specialty Start Date End Date Ana Her MD [address] [place] [address] PCP - General 07/29/13 documented as of this encounter
--- OUTSIDE RECORDS SUMMARY | 2024-04-18 12:26 | XMS_ITS | Encounter Summary ---
[place] [address] Care Team Providers Care Craps Dealer Name Role Phone Ana Her MD Primary Care Provider [phone] Encounter Details Date Type Department Care Team (Late st Contact Info) Description 02/04/2022 12:00 PM EDT [place] [address] Social History Tobacco Use Types Packs/Day Years [...] on filedocumented in this encounter Care Teams Craps Dealer Relationship Specialty Start Date End Date Ana Her MD [address] [place] [address] PCP - General 07/29/13 documented as of this encounter
--- OUTSIDE RECORDS SUMMARY | 2024-04-18 12:26 | XMS_ITS | Encounter Summary ---
Author Organization [facility] [place] [address] Care Team Providers Care Sewing Techniques Demonstrator Name Role Phone Ana Her MD Primary Care Provider [phone] Reason for Visit * Consultation (Routine) - Closed Specialty Diagnoses / Procedures Referred By Christiano hackett Referred To Contact General Surgery Diagnoses Hiatal hernia Ana Her MD [address] [place] [address] [facility] [address] [place] [address] Referral ID Status Reason Start Date Expiration Date V isits Requested Visits Authorized [id number] Closed Consult, Test & Treat 09/23/2021 09/23/2022 6 6 Encounter Details Date Type Department Care Team (Latest Contact Info) Description 12/05/2021 3:00 PM EDT Office [place] [address] Laura Will MD [facility] [place] [address] Paraesophageal hernia Social History Tobacco [...] of left breast of female, estrogen receptor [id number], Z17.0 ??? Anemia D64.9 ??? Aortic valve [...] performed by Malika Chen MD at [facility] MAIN OR ??? PRO INTRAOP SENTINEL LYMPH ID W/DYE INJECTION Left 03/30/2017 INTRAOPERATIVE ID (MAPPING) SENTINEL LYMPH NODE,INCLUDES INJECTION (WRVU 2.5) performed by Malika Chen MD at [facility] MAIN OR ??? PRO MASTECTOMY PARTIAL Left 03/30/2017 MASTECTOMY PARTIAL (WRVU 10.13) performed by Malika Chen MD at [facility] MAIN OR Cholecystectomy Medications: Current Outpatient [...] gangrene documented in this encounter Care Teams Sewing Techniques Demonstrator Relationship Specialty Start Date End Date Ana Her MD [address] [place] [address] PCP - General 07/29/13 documented as of this encounter
--- OUTSIDE RECORDS SUMMARY | 2024-04-18 12:26 | XMS_ITS | Encounter Summary ---
[place] [address] Care Team Providers Care Computer Aided Drafter Name Role Phone Ana Her MD Primary Care Provider [phone] Reason for Visit * Reason Comments Follow-up Encounter Details Date Type Department Care Team (Late st Contact Info) Description 11/15/2020 4:00 PM EDT Office Visit Hematology [place] [phone] Laura Joaquin PA Malignant neoplasm of lower-outer [...] ??Excision with image-guided localization ?Lymph Node Sampling: ??[place] lymph node(s) ?Specimen Laterality: ??Left Tumor ?Histologic [...] ??DCIS not present in specimen Lymph Nodes ?[place] Lymph Nodes: [place] lymph node biopsy performed ?Number of [place] Nodes Examined: ??3 ?Number of Lymph Node(s) [...] Spinal stenosis > A Fib. Cardiology at [facility]. S/P successful cardioversion May [...] Medical Oncology - Breast & GI Cancers [facility] Pager [phone] documented in this encounter Plan of Treatment Not on file documented as of this encounter Visit Diagnoses Diagnosis 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, estrogen receptor positive documented in this encounter Care Teams Computer Aided Drafter Relationship Specialty Start Date End Date Ana Her MD [address] [place] [address] PCP - General 07/29/13 documented as of this encounter
--- OUTSIDE RECORDS SUMMARY | 2024-04-18 12:26 | XMS_ITS | Encounter Summary ---
[place] [address] Care Team Providers Care Dcs Engineer Name Role Phone Ana Her MD Primary Care Provider [phone] Encounter Details Date Type Department Care Team (Late st Contact Info) Description 02/03/2023 Telephone Hematology [place] [address] Maryam Barrett Social History Tobacco Use Types [...] on filedocumented in this encounter Care Teams Dcs Engineer Relationship Specialty Start Date End Date Ana Her MD [address] [place] [address] PCP - General 07/29/13 documented as of this encounter
--- OUTSIDE RECORDS SUMMARY | 2024-04-18 12:26 | XMS_ITS | Encounter Summary ---
Author Organization [facility] [place] [address] Care Team Providers Care Dobie Man Name Role Phone Ana Her MD Primary Care Provider [phone] Reason for Visit * Reason Comments Advice Only BBR * Consultation (Routine) - Closed Specialty Diagnoses / Procedures Referred By Christiano hackett Referred To Contact Plastic Surgery Diagnoses 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, estrogen receptor positive Macromastia Jeanine Lobato APRN [facility] [place] [address] [facility] Plastic Surg [address] [place] [address] Referral ID Status Reason Start Date Expiration Date V isits Requested Visits Authorized [id number] Closed Consult, Test & Treat 06/11/2021 06/11/2022 1 1 Encounter Details Date Type Department Care Team (Late st Contact Info) Description 07/09/2021 8:30 AM EST Office [place] [address] Med Hudson MD [facility] [place] [address] Macromastia Social History Tobacco Use [...] physical with your primary care doctor and Fisher clearance Two Weeks prior to Surgery Do [...] Day of Surgery You will need a newspaper delivery driver. If you do not have a newspaper delivery driver, your surgery will be canceled. DO [...] For questions pertaining to your surgical date [phone] For nursing related questions [phone] On weekends, holidays or after office hours: Call [phone] and ask the swing type lathe operator to page the Plastic Surgery Resident precision structural metal fitter. documented in this encounter Progress Notes * [...] and was normal. This was performed at [facility]. She has completed a breast specific questionnaire: [...] None of the time Conservative Therapy Treatments: [facility] PLAST[facility] CONSERVATIVE THERAPY TREATMENTS 07/09/2021 [...] 6.43) performed by Malika Chen MD at [facility] MAIN OR ??? PRO INTRAOP SENTINEL LYMPH ID W/DYE INJECTION Left 03/30/2017 INTRAOPERATIVE ID (MAPPING) SENTINEL LYMPH NODE,INCLUDES INJECTION (WRVU 2.5) performed by Malika Chen MD at [facility] MAIN OR ??? PRO MASTECTOMY PARTIAL Left 03/30/2017 MASTECTOMY PARTIAL (WRVU 10.13) performed by Malika Chen MD at [facility] MAIN OR Family History Problem Relation [...] surgery is best done at a realistic fci stable weight. We talked about the outpatient [...] revisions for scarring or asymmetry.) Garcia or [place] Pattern Incision: More scarring on breast, but [...] Timeframe: Elective Procedure: Bilateral breast reduction CPT: 67663 Surgical Technique: Garcia, Pedicle Surgical site: Breasts Side: Bilateral Anesthesia: General Follow up: 1 day for drain removal; 7-10 days for HCK PAT: H+P PCP, Cardiac clearance. Need to discontinue blood thinners pre-op? Xarelto documented in this encounter Plan of Treatment Not on file documented as of this encounter Visit Diagnoses Diagnosis Macromastia Hypertrophy of breast documented in this encounter Care Teams Dobie Man Relationship Specialty Start Date End Date Ana Her MD [address] [place] [address] PCP - General 07/29/13 documented as of this encounter
--- OUTSIDE RECORDS SUMMARY | 2024-04-18 12:26 | XMS_ITS | Encounter Summary ---
Author Organization [facility] Address [facility] [place] [address] Care Team Providers Care Senior Linux Administrator Name Role Phone Ana Her MD Primary Care Provider [phone] 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 * Diagnostic Test (Routine) - Closed Specialty Diagnoses / Procedures Referred By Contac t Referred To Contact Radiology Diagnoses 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, estrogen receptor positive Osteopenia of neck of femur, unspecified laterality assisted current 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 Procedures DXA Central Spine, Hip, and/or Whole Body (Generic) Ricky Lowry MD [facility] HEMATOLOGY/[place] [address] [facility] Rad Xray [address] [place] [address] [place] [address] Referral ID Status Reason Start Date Expiration Date V isits Requested Visits Authorized [id number] Closed Specialty Service Requested 05/22/2020 11/19/2021 1 1 Reason for Visit * Diagnostic Test (Routine) - Closed Specialty Diagnoses / Procedures Referred By Contac t Referred To Contact Radiology Diagnoses 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, estrogen receptor positive Osteopenia of neck of femur, unspecified laterality assisted current 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 Procedures DXA Central Spine, Hip, and/or Whole Body (Generic) Ricky Lowry MD [facility] HEMATOLOGY/[place] [address] [facility] Rad Xray [address] [place] [address] [place] [id number] Referral ID Status Reason Start Date Expiration Date V isits Requested Visits Authorized [id number] Closed Specialty Service Requested 05/22/2020 11/19/2021 1 1 Encounter Details Date Type Department Care Team (Latest Contact Info) Description 11/15/2020 2:25 PM EDT - 11/15/2020 11:59 PM EDT Hospital Encounter XRay at [address] [place] [id number] Ricky Lowry MD [facility] HEMATOLOGY/[place] [address] 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, estrogen receptor positive; Osteopenia of neck of femur, unspecified laterality; assisted current 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 omega 3-vei-dqo-fish-turm salty 417 mg-120 mg- 276 mg-600 mg [...] Osteopenia of neck of femur, unspecified laterality assisted current 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 documented in [...] copies will be sent to providers without [email or web address]- access. If you have received this report without the data sheet and do not have access to Vouchr, please contact Radiology [facility] at [phone] Thursday thru Thursday 8am-4pm. Thank you for letting us participate in the care of this patient. ??If you are a health care provider and have any questions regarding this report, please contact the number below. ??For patients who have questions please contact the health career development consultant that requested your imaging first. ? Narrative [...] BMD measurements and plots are available in EappEatITunder the imaging tab. Paper copies will be sent to providers without Vouchr access.If you have received this report without the data sheet and do not haveaccess to Vouchr, please contact Radiology [facility] at [phone] Thursday thr 8am-4pm. Thank you for letting us participate in the care of this patient. If youare a health care provider and have any questions regarding this report,please contact the number below. For patients who have questions please contactthe health career development consultant that requested your imaging first. Ricky Lowry MD IMG DEXA ORDERABLES documented in this encounter Visit Diagnoses Diagnosis 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, estrogen receptor positive Osteopenia of neck of femur, unspecified laterality intermediate manager current 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 Use 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s documented in this encounter Care Teams Senior Linux Administrator Relationship Specialty Start Date End Date Ana Her MD [address] [place] [address] PCP - General 07/29/13 documented as of this encounter
--- OUTSIDE RECORDS SUMMARY | 2024-04-18 12:26 | XMS_ITS | Encounter Summary ---
[place] [address] Care Team Providers Care Commercial Drone Pilot Name Role Phone Ana Her MD Primary Care Provider [phone] Encounter Details Date Type Department Care Team (Late st Contact Info) Description 01/08/2022 7:30 AM EDT - 01/08/2022 8:40 AM EDT Surgery [place] [phone] Laura Park MD [facility] [place] [address] EGD, UPPER GI ENDOSCOPY (WRVU 2.09) Social [...] a nurse in the Thoracic Clinic at [phone]. After hours or on weekends or holidays please call: [phone] and ask to speak to the Thoracic Physician consumer services advisor. Diet: You should follow a clear liquid [...] - 5pm): General Surgery and Bariatric Surgery [phone] Bariatric Surgeons: Drs. Park and John [phone] Forest Nursery Supervisor: [phone] Dietitians: [phone] Outside of regular business hours, including weekends and holidays: Ask for General Surgery resident consumer services advisor [phone] Please note, this call will be answered [...] of left breast of female, estrogen receptor vedhyxqsY34.512, Z17.0 ??? Anemia D64.9 ??? Aortic valve [...] 6.43) performed by Malika Chen MD at [facility] MAIN OR ??? PRO INTRAOP SENTINEL LYMPH ID W/DYE INJECTION Left 03/30/2017 ?? INTRAOPERATIVE ID (MAPPING) SENTINEL LYMPH NODE,INCLUDES INJECTION (WRVU 2.5) performed by Malika Chen MD at [facility] MAIN OR ??? PRO MASTECTOMY PARTIAL Left 03/30/2017 ?? MASTECTOMY PARTIAL (WRVU 10.13) performed by Malika Chen MD at [facility] MAIN OR ?? Cholecystectomy ?? [...] Park MD - 01/08/2022 7:48 AM EDT [facility] Operative Note Patient Name: Digna Olson : [id number] MR#: [id number] Case Date: 01/08/2022 Surgeon: Surgeon(s) and Role: [...] Info Order Time SPECIMEN TO PATHOLOGY Gastric [place] for H Pylori Hiatal hernia Gastric [place] for H Pylori excision 01/08/2022 8:15 AM [...] 8:14 AM EDT Upper GI Endoscopy, Diagnostic ([id number]) Yes 01/08/2022 7:40 AM EDT Hiatal hernia POCT GLUCOSE Routine 01/08/2022 6:33 AM EDT documented in this encounter Results * Specimen to Pathology (01/08/2022 8:15 AM EDT) AP Specimen 01/08/2022 8:15 AM EDT 01/08/2022 8:[address] [facility] - 01/08/2022 8:15 AM EDT Specimen requisition ordered. ??Separate Pathology report to follow Laura Park MD PATHOLOGY/CYTOLOGY ORDERABLES [facility] [place] [address] * Surgical Pathology Report (01/08/2022 8:14 AM EDT) Final Diagnosis [id number] ? Location: SDP; SD36; A The signing pathologist has (i) examined the relevant preparation(s) for the specimen(s) and (ii) rendered or confirmed the diagnosis(es). . ?Surgical Pathology DIAGNOSIS A - Gastric ??Antrum for H Pylori, excision: - ??Antrum-type mucosa with reactive gastropathy. Electronically signed by: ?Umang Raymundo MD Verified: ??01/09/2022 16:36 ??Pathologist Performed at: ??-[facility] Dept. of Pathology, [place], [place] SPECIMEN(S) SUBMITTED A - Gastric ??Antrum for H Pylori, excision (1) CLINICAL INFORMATION Hiatal hernia SPECIMEN PROCESSING A - Labeled/Fixativ e: Gastric antrum for H. pylori, formalin. Quantity/Size: Single, 0.3 cm. Tissue Description: Soft, pink tissue. Sections/Proces sing: Submitted en toto ??in 1 cassette labeled A1. ??sns 01/09/2022 4:[address] [facility] GI Biopsy 01/08/2022 8:14 AM EDT 01/08/2022 8:14 AM EDT Laura Park MD PATHOLOGY/CYTOLOGY ORDERABLES Performing Organization Address City/State/[facility] Co de Phone Number [facility] [place] [address] * POCT Glucose (01/08/2022 6:33 AM EDT) Glucose, POC 120 65 - 199 mg/dL [facility] Comment: Supplemental ranges: <140 mg/dL before meals <180 mg/dL all other times of the day Blood 01/08/2022 6:33 AM EDT 01/08/2022 6:33 AM EDT Laura Park MD POINT [place] [address] documented in this encounter Visit Diagnoses Not on filedocumented in this encounter Active and Recently Administered Medications Care Teams Commercial Drone Pilot Relationship Specialty Start Date End Date Ana Her MD [address] [facility] [address] [place] [address] PCP - General 07/29/13 documented as of this encounter
--- OUTSIDE RECORDS SUMMARY | 2024-04-18 12:26 | XMS_ITS | Encounter Summary ---
[place] [address] Care Team Providers Care Pearl Digger Name Role Phone Ana Her MD Primary Care Provider [phone] Reason for Visit * Reason Comments Follow-up Encounter Details Date Type Department Care Team (Late st Contact Info) Description 06/11/2021 11:00 AM EST Office Visit Hematology [place] [phone] Laura Joaquin PA 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, estrogen receptor positive; prison current 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 Social History [...] ??Excision with image-guided localization ?Lymph Node Sampling: ??[place] lymph node(s) ?Specimen Laterality: ??Left Tumor ?Histologic [...] ??DCIS not present in specimen Lymph Nodes ?[place] Lymph Nodes: [place] lymph node biopsy performed ?Number of [place] Nodes Examined: ??3 ?Number of Lymph Node(s) [...] Spinal stenosis > A Fib. Cardiology at [facility]. S/P successful cardioversion May 2018. DEXA scan [...] on RA Breasts: deferred (examined by surgery COMMERCIAL SALES SPECIALIST today) Neuro: grossly nonfocal. Results: Last DXA [...] Medical Oncology - Breast & GI [facility] Pager - [phone] No future appointments. documented in this encounter Plan of Treatment Not on file documented as of this encounter Visit Diagnoses Diagnosis 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, estrogen receptor positive prison current 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 Use 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s documented in this encounter Care Teams Pearl Digger Relationship Specialty Start Date End Date Ana Her MD [address] [place] [address] PCP - General 07/29/13 documented as of this encounter
--- OUTSIDE RECORDS SUMMARY | 2024-04-18 12:26 | XMS_ITS | Encounter Summary ---
[place] [address] Care Team Providers Care Professor Of Mechanical Engineering Name Role Phone Ana Her MD Primary Care Provider [phone] Encounter Details Date Type Department Care Team (Late st Contact Info) Description 12/17/2021 Telephone [place] [phone] Roma Estrada RN Social History Tobacco Use [...] on filedocumented in this encounter Care Teams Professor Of Mechanical Engineering Relationship Specialty Start Date End Date Ana Her MD [address] [place] [address] PCP - General 07/29/13 documented as of this encounter
--- OUTSIDE RECORDS SUMMARY | 2024-04-18 12:26 | XMS_ITS | Encounter Summary ---
[place] [address] Care Team Providers Care Perfect Binder Setter Name Role Phone Ana Her MD Primary Care Provider [phone] Encounter Details Date Type Department Care Team (Late st Contact Info) Description 10/23/2022 Telephone Mammography/[place] [phone] Aby Loredo Social History Tobacco Use Types [...] on filedocumented in this encounter Care Teams Perfect Binder Setter Relationship Specialty Start Date End Date Ana Her MD [address] [place] [address] PCP - General 07/29/13 documented as of this encounter
--- OUTSIDE RECORDS SUMMARY | 2024-04-18 12:26 | XMS_ITS | Encounter Summary ---
Author Organization [facility] [place] [address] Care Team Providers Care Director Of Dementia Operations Name Role Phone Ana Her MD Primary Care Provider [phone] 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 * Diagnostic Test (Routine) - Closed Specialty Diagnoses / Procedures Referred By Christiano hackett Referred To Contact Radiology Diagnoses 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, estrogen receptor positive Osteopenia of neck of femur, unspecified laterality [facility] current 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 Procedures DXA Central Spine, Hip, and/or Whole Body (Generic) Ricky Lowry MD [facility] HEMATOLOGY/[place] [address] [facility] Rad Xray [address] [place] [address] [place] [address] Referral ID Status Reason Start Date Expiration Date V isits Requested Visits Authorized [id number] Closed Specialty Service Requested 05/22/2020 11/19/2021 1 1 Encounter Details Date Type Department Care Team (Late st Contact Info) Description 05/22/2020 1:15 PM EST Office Visit Hematology [place] [address] Ricky Lowry MD [facility] HEMATOLOGY[place] [address] Malignant neoplasm of lower-outer quadrant of left [...] cancer cells with immunostaining) Stain intensity: Strong CA immunoreactivity: Positive (>90% cancer cells with immunostaining) [...] ??Excision with image-guided localization ?Lymph Node Sampling: ??[place] lymph node(s) ?Specimen Laterality: ??Left Tumor ?Histologic [...] ??DCIS not present in specimen Lymph Nodes ?[place] Lymph Nodes: [place] lymph node biopsy performed ?Number of [place] Nodes Examined: ??3 ?Number of Lymph Node(s) [...] Spinal stenosis > A Fib. Cardiology at [facility]. S/P successful cardioversion May 2018. DEXA scan [...] BMD measurements and plots are available in Global [employer] Source under the imaging tab. Paper copies will be sent to providers without Global [employer] Source access. If you have received this report without the data sheet and do not have access to [employer] Source, please contact Radiology Reduction Furnace Operator at [phone] Thursday thru Thursday 8am-4pm. Thank you for letting us participate in the care of this patient. ??If you are a health care provider and have any questions regarding this report, please contact the number below. ??For patients who have questions please contact the health direct support professional caregiver that requested your imaging first. ? Electronically signed by: Nat Epperson MD, [facility] ([phone]), at 11/19/2020 1:09 PM Narrative 11/19/2020 1:09 [...] copies will be sent to providers without EActivePath access.If you have received this report without the data sheet and do not haveaccess to E-, please contact Radiology Reduction Furnace Operator at [phone] Thursday thruFriday 8am-4pm. Thank you for letting us participate in the care of this patient. If youare a health care provider and have any questions regarding this report,please contact the number below. For patients who have questions please contactthe health direct support professional caregiver that requested your imaging first. Electronically signed by: Nat Epperson MD, [facility]([phone]), at 11/19/2020 1:09 PM Ricky Lowry MD [...] Osteopenia of neck of femur, unspecified laterality long term care pharmacist current 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 Use 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s documented in this encounter Care Teams Director Of Dementia Operations Relationship Specialty Start Date End Date Ana Her MD [address] [place] [address] PCP - General 07/29/13 documented as of this encounter
--- OUTSIDE RECORDS SUMMARY | 2024-04-18 12:26 | XMS_ITS | Encounter Summary ---
[place] [address] Care Team Providers Care Protein Scientist Name Role Phone Ana Her MD Primary Care Provider [phone] Encounter Details Date Type Department Care Team (Late st Contact Info) Description 11/01/2021 Telephone [place] [address] Chelsie Lauren Social History Tobacco Use Types [...] on filedocumented in this encounter Care Teams Protein Scientist Relationship Specialty Start Date End Date Ana Her MD [address] [place] [address] PCP - General 07/29/13 documented as of this encounter
--- OUTSIDE RECORDS SUMMARY | 2024-04-18 12:26 | XMS_ITS | Encounter Summary ---
[place] [address] Care Team Providers Care Farm Products Shipper Name Role Phone Ana Her MD Primary Care Provider [phone] Encounter Details Date Type Department Care Team (Late st Contact Info) Description 06/12/2021 Telephone [place] [phone] Chelsie Lauren Social History Tobacco Use Types [...] on filedocumented in this encounter Care Teams Farm Products Shipper Relationship Specialty Start Date End Date Ana Her MD [address] [place] [address] PCP - General 07/29/13 documented as of this encounter
--- OUTSIDE RECORDS SUMMARY | 2024-04-18 12:26 | XMS_ITS | Encounter Summary ---
Author Organization [facility] [place] [address] Care Team Providers Care Client Account Manager Name Role Phone Ana Her MD Primary Care Provider [phone] Encounter Details Date Type Department Care Team (Latest Contact Info) Description 01/08/2022 6:11 AM EDT - 01/08/2022 9:40 AM EDT Hospital Encounter [place] [phone] Laura Park MD [facility] [place] [address] Discharge Disposition: Home Social History Tobacco Use [...] a nurse in the Thoracic Clinic at [phone]. After hours or on weekends or holidays please call: [phone] and ask to speak to the Thoracic Physician union organizer. Diet: You should follow a clear liquid [...] - 5pm): General Surgery and Bariatric Surgery [phone] Bariatric Surgeons: Drs. Park and John [phone] Binder Stripper Machine: [phone] Dietitians: [phone] Outside of regular business hours, including weekends and holidays: Ask for General Surgery resident union organizer [phone] Please note, this call will be answered [...] of left breast of female, estrogen receptor msfrlqbuZ57.512, Z17.0 ??? Anemia D64.9 ??? Aortic valve [...] Park MD - 01/08/2022 7:48 AM EDT [facility] [place] Patient Name: Digna Olson : [id number] MR#: [id number] Case Date: 01/08/2022 Surgeon: Surgeon(s) and Role: [...] Info Order Time SPECIMEN TO PATHOLOGY Gastric [place] for H Pylori Hiatal hernia Gastric [place] for H Pylori excision 01/08/2022 8:15 AM [...] 8:14 AM EDT Upper GI Endoscopy, Diagnostic ([id number]) Yes 01/08/2022 7:40 AM EDT Hiatal hernia POCT GLUCOSE Routine 01/08/2022 6:33 AM EDT documented in this encounter Results * Specimen to Pathology (01/08/2022 8:15 AM EDT) AP Specimen 01/08/2022 8:15 AM EDT 01/08/2022 8:15 AM EDT Narrative [facility] - 01/08/2022 8:15 AM EDT Specimen requisition ordered. ??Separate Pathology report to follow Laura Park MD PATHOLOGY/CYTOLOGY ORDERABLES [facility] [place] [address] * Surgical Pathology Report (01/08/2022 8:14 AM EDT) Final Diagnosis [id number] ? Location: [facility]; A The signing pathologist has (i) examined the relevant preparation(s) for the specimen(s) and (ii) rendered or confirmed the diagnosis(es). . ?Surgical Pathology DIAGNOSIS A - Gastric ??Antrum for H Pylori, excision: - ??Antrum-type mucosa with reactive gastropathy. Electronically signed by: ?Umang Raymundo MD Verified: ??01/09/2022 16:36 ??Pathologist Performed at: ??-[facility] Dept. of [place]ology, [place], [place] SPECIMEN(S) SUBMITTED A - Gastric ??Antrum for H Pylori, excision (1) CLINICAL INFORMATION Hiatal hernia SPECIMEN PROCESSING A - Labeled/Fixativ e: Gastric antrum for H. pylori, formalin. Quantity/Size: Single, 0.3 cm. Tissue Description: Soft, pink tissue. Sections/Proces sing: Submitted en toto ??in 1 cassette labeled A1. ??sns 01/09/2022 4:36 PM EDT [facility] GI Biopsy 01/08/2022 8:14 AM EDT 01/08/2022 8:14 AM EDT Laura Park MD PATHOLOGY/CYTOLOGY ORDERABLES [facility] [place] [address] * POCT Glucose (01/08/2022 6:33 AM EDT) Glucose, POC 120 65 - 199 mg/dL [facility] Comment: Supplemental ranges: <140 mg/dL before meals <180 mg/dL all other times of the day Blood 01/08/2022 6:33 AM EDT 01/08/2022 6:33 AM EDT Laura Park MD POINT [place] [address] documented in this encounter Visit Diagnoses Not on filedocumented in this encounter Active and Recently Administered Medications Care Teams Client Account Manager Relationship Specialty Start Date End Date Ana Her MD [address] [place] [address] PCP - General 07/29/13 documented as of this encounter
--- OUTSIDE RECORDS SUMMARY | 2024-04-18 12:26 | XMS_ITS | Encounter Summary ---
Author Organization [facility] [place] [address] Care Team Providers Care Internet Researcher Name Role Phone Ana Her MD Primary Care Provider [phone] Encounter Details Date Type Department Care Team (Late st Contact Info) Description 01/08/2022 7:42 AM EDT Anesthesia Event [place] [address] Alisa Naqvi MD [facility] [place] [address] Anesthesia Record Procedure Summary Procedure Name Responsible [...] cephalic vein (lateral side of arm), left; fygi-eod-rjfiub catheter system; Anatomical Landmarks; 20 gauge; Joslyn [...] Procedure Summary Date: 01/08/22 Room / Location: [facility] OR [address] [place] [address] MAIN OR Anesthesia Start: 741 Anesthesia Stop: 825 Procedure: EGD, UPPER GI ENDOSCOPY (N/A Trunk) Diagnosis: (Hiatal hernia) Surgeons: Laura Will MD Responsible Provider: Alisa Naqvi MD Anesthesia Type: general ASA Status: 3 All Anesthesia Providers: Anesthesiologist: Alisa Naqvi MD Primer Inserting Machine Adjuster: Nghia Valerio MD Vitals Value Taken Time BP 98/56 01/08/22 0823 Temp Pulse Resp SpO2 99 % 01/08/22826 Pain Level Vitals shown include unvalidated device data. Patient Location: PACU/[facility] Level of Consciousness: Conscious but Sleepy Pain [...] of left breast of female, estrogen receptor dcbubpwg18/25/2017 ??? Bicuspid aortic valve 06/10/2016 ??? Dyspnea [...] 6.43) performed by Malika Chen MD at [facility] MAIN OR ??? PRO INTRAOP SENTINEL LYMPH ID W/DYE INJECTION Left 03/30/2017 INTRAOPERATIVE ID (MAPPING) SENTINEL LYMPH NODE,INCLUDES INJECTION (WRVU 2.5) performed by Malika Chen MD at [facility] MAIN OR ??? PRO MASTECTOMY PARTIAL Left 03/30/2017 MASTECTOMY PARTIAL (WRVU 10.13) performed by Malika Chen MD at [facility] MAIN OR Social History Tobacco Use ??? [...] mg documented in this encounter Care Teams Internet Researcher Relationship Specialty Start Date End Date Ana Her MD [facility] [address] [facility] [address] [place] [address] PCP - General 07/29/13 documented as of this encounter
--- OUTSIDE RECORDS SUMMARY | 2024-04-18 12:26 | XMS_ITS | Encounter Summary ---
[place] [address] Care Team Providers Care Irrigation Specialist Name Role Phone Ana Her MD Primary Care Provider [phone] Encounter Details Date Type Department Care Team (Late st Contact Info) Description 02/26/2022 Orders [place] [address] Alicia Manning RN Social History Tobacco Use [...] on filedocumented in this encounter Care Teams Irrigation Specialist Relationship Specialty Start Date End Date Ana Her MD [address] [place] [address] PCP - General 07/29/13 documented as of this encounter
--- OUTSIDE RECORDS SUMMARY | 2024-04-18 12:26 | XMS_ITS | Encounter Summary ---
Author Organization Formerly [facility] [place] [address] Care Team Providers Care Metal Treater Name Role Phone Ana Her MD Primary Care Provider [phone] Encounter Details Date Type Department Care Team (Late st Contact Info) Description 03/10/2022 1:35 AM EST Ancillary Procedure Radiology Library at [facility] [place] [address] Ana Her MD [address] [place] [address] [facility] 1 [place], [place] [id number] Social History Tobacco Use Types Packs/Day Years [...] CT Chest (03/10/2022 1:31 AM EST) Narrative [facility] - 03/10/2022 1:31 AM EST This exam is auto-finalizing. It's purpose is for storage only. Ana Her MD IM FILM LIBRARY ORD ERABLES [place], [place] documented in this encounter Visit Diagnoses Not on filedocumented in this encounter Care Teams Metal Treater Relationship Specialty Start Date End Date Ana Her MD [facility] [address] [facility] 1 [place] [address] PCP - General 07/29/13 documented as of this encounter
--- OUTSIDE RECORDS SUMMARY | 2024-04-18 12:26 | XMS_ITS | Encounter Summary ---
Author Organization [facility] [place] [address] Care Team Providers Care Grants Officer Name Role Phone Ana Her MD Primary Care Provider [phone] Encounter Details Date Type Department Care Team (Late st Contact Info) Description 03/09/2022 11:00 PM EST Ancillary Procedure Radiology Library at [facility] [place] [address] Ana Her MD [address] [place] [address] [facility] 1 [place], [place] [id number] Social History Tobacco Use Types Packs/Day Years [...] CT Chest (03/09/2022 10:56 PM EST) Narrative [facility] - 03/09/2022 10:56 PM EST This exam is auto-finalizing. It's purpose is for storage only. Ana Her MD IM FILM LIBRARY ORD ERABLES [place], [place] documented in this encounter Visit Diagnoses Not on filedocumented in this encounter Care Teams Grants Officer Relationship Specialty Start Date End Date Ana Her MD [address] [facility] 1 [place] [address] PCP - General 07/29/13 documented as of this encounter
--- OUTSIDE RECORDS SUMMARY | 2024-04-18 12:27 | XMS_ITS | Encounter Summary ---
Author Organization [facility] [place] [address] Care Team Providers Care Flasher Adjuster Name Role Phone Ana Her MD Primary Care Provider [phone] Encounter Details Date Type Department Care Team (Late st Contact Info) Description 04/23/2017 [place] [address] Marjorie Ariza Social History Tobacco Use Types [...] Marjorie Ariza - 04/23/2017 2:43 PM EST Accounts Receivable Administrator Forest Fire Control Officer met with pt after consultation with medical [...] on filedocumented in this encounter Care Teams Flasher Adjuster Relationship Specialty Start Date End Date Ana Her MD [address] [facility] 1 [place] [address] PCP - General 07/29/13 documented as of this encounter
--- OUTSIDE RECORDS SUMMARY | 2024-04-18 12:27 | XMS_ITS | Encounter Summary ---
Author Organization [facility] [address] Care Team Providers Care Heavy Forger Helper Name Role Phone Ana Her MD Primary Care Provider [phone] Reason for Visit * Reason Comments Follow-up Encounter Details Date Type Department Care Team (Late st Contact Info) Description 05/31/2019 11:45 AM EST Office Visit [place] [phone] Ricky Lowry MD [facility] HEMATOLOGY/[place] [address] Malignant neoplasm of lower-outer quadrant of left [...] ??Excision with image-guided localization ?Lymph Node Sampling: ??[place] lymph node(s) ?Specimen Laterality: ??Left Tumor ?Histologic [...] ??DCIS not present in specimen Lymph Nodes ?[place] Lymph Nodes: [place] lymph node biopsy performed ?Number of [place] Nodes Examined: ??3 ?Number of Lymph Node(s) [...] Spinal stenosis > A Fib. Cardiology at [facility]. S/P successful cardioversion May 2018. [...] positive documented in this encounter Care Teams Heavy Forger Helper Relationship Specialty Start Date End Date Ana Her MD [address] [place] [address] PCP - General 07/29/13 documented as of this encounter
--- OUTSIDE RECORDS SUMMARY | 2024-04-18 12:27 | XMS_ITS | Encounter Summary ---
Author Organization [facility] [place] [address] Care Team Providers Care Repulping Supervisor Name Role Phone Ana Her MD Primary Care Provider [phone] Encounter Details Date Type Department Care Team (Latest Contact Info) Description 02/25/2017 1:36 PM EDT - 02/25/2017 2:58 PM EDT Hospital En[place] [id number] Maryam Yee MD [facility] [place] [address] Abnormal mammogram Discharge Disposition: Home Social History [...] unspecified documented in this encounter Care Teams Repulping Supervisor Relationship Specialty Start Date End Date Ana Her MD [address] [place] [address] [address] [place] [address] PCP - General 07/29/13 documented as of this encounter
--- OUTSIDE RECORDS SUMMARY | 2024-04-18 12:27 | XMS_ITS | Encounter Summary ---
Author Organization [facility] [place] [address] Care Team Providers Care Carpet Sewing Machine Operator Name Role Phone Ana Her MD Primary Care Provider [phone] Encounter Details Date Type Department Care Team (Latest Contact Info) Description 05/31/2019 10:16 AM EST - 05/31/2019 11:59 PM EST Hospital Encounter Mammography/[place] [phone] Jeanine Lobato APRN [facility] [place] [address] History of breast cancer Discharge Disposition: Home [...] BIRADS CATEGORY 2: Benign findings. * ??[employer] and [employer] of [...] breast documented in this encounter Care Teams Carpet Sewing Machine Operator Relationship Specialty Start Date End Date Ana Her MD [address] [place] [address] PCP - General 07/29/13 documented as of this encounter
--- OUTSIDE RECORDS SUMMARY | 2024-04-18 12:27 | XMS_ITS | Encounter Summary ---
Author Organization [facility] Address 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, estrogen receptor positive Osteopenia of neck of femur, unspecified laterality alf current 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 Procedures DXA Central-Spine, Hip, And/Or Whole Body (Generic) Ricky Lowry MD [facility] HEMATOLOGY/[place] [address] [facility] Rad Xray [address] [place] [address] [place] [address] Referral ID Status Reason Start Date Expiration Date V isits Requested Visits Authorized [id number] Closed Specialty Service Requested 05/10/2018 05/10/2019 1 1 Reason for Visit * Diagnostic Test (Routine) - Closed Specialty Diagnoses / Procedures Referred By Contmary t Referred To Contact Radiology Diagnoses 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, estrogen receptor positive Osteopenia of neck of femur, unspecified laterality 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 Procedures DXA Central-Spine, Hip, And/Or Whole Body (Generic) Ricky Lowry MD [facility] HEMATOLOGY/[place] [address] [facility] Rad Xray [address] [place] [address] [place] [address] Referral ID Status Reason Start Date Expiration Date V isits Requested Visits Authorized [id number] Closed Specialty Service Requested 05/10/2018 05/10/2019 1 1 Encounter Details Date Type Department Care Team (Latest Contact Info) Description 11/09/2018 1:03 PM EDT - 11/09/2018 11:59 PM EDT Hospital Encounter XRay at [address] [place] [address] Ricky Lowry MD [facility] HEMATOLOGY/[place] [address] 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, estrogen receptor positive; Osteopenia of neck of femur, unspecified laterality; 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 Paper copies will be sent to providers without [facility] access. If you have received this report without the data sheet and do not have access to [facility], please contact Radiology School Lunch Monitor at [phone] Thursday thru Thursday 8am-4pm. Thank you for [...] BMD measurements and plots are available in [employer] the imaging tab. Paper copies will be sent to providers without [facility] access.If you have received this report without the data sheet and do not haveaccess to [facility], please contact Radiology School Lunch Monitor at [phone] Thursday thruFriday 8am-4pm. Thank you for letting us participate in the care of this patient. Forquestions regarding this report, please contact the number below. Electronically signed by: Khushi Hughes [facility] [place] ([phone]),at 11/10/2018 10:55 AM Ricky Lowry MD IMG DEXA ORDERABLES documented in this encounter Visit Diagnoses Diagnosis 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, estrogen receptor positive Osteopenia of neck of femur, unspecified laterality alf current 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 Use 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s documented in this encounter Care Teams Director Corporate Relationship Specialty Start Date End Date Ana Her MD Geovany [address] [facility] 1 [place] [address] PCP - General 07/29/13 documented as of this encounter
--- OUTSIDE RECORDS SUMMARY | 2024-04-18 12:27 | XMS_ITS | Encounter Summary ---
Author Organization [facility] [address] Care Team Providers Care Insurance Licensing Supervisor Name Role Phone Ana Her MD Primary Care Provider [phone] Encounter Details Date Type Department Care Team (Latest Contact Info) Description 03/30/2017 8:30 AM [facility] Hospital [place] [address] Malika Chen MD [facility] [address] Malignant neoplasm of upper-outer quadrant of left [...] mg documented in this encounter Care Teams Insurance Licensing Supervisor Relationship Specialty Start Date End Date Ana Her MD [address] [place] [address] PCP - General 07/29/13 documented as of this encounter
--- OUTSIDE RECORDS SUMMARY | 2024-04-18 12:27 | XMS_ITS | Encounter Summary ---
Author Organization [facility] [place] [address] Care Team Providers Care Hospice Director Name Role Phone Ana Her MD Primary Care Provider [phone] Encounter Details Date Type Department Care Team (Late st Contact Info) Description 11/09/2018 2:45 PM EDT Office Visit Hematology [place] [address] Ricky Lowry MD [facility] [place]ATOLOGY[place] [address] Malignant neoplasm of lower-outer quadrant of left [...] cancer cells with immunostaining) Stain intensity: Strong [place] immunoreactivity: Positive (>90% cancer cells with immunostaining) [...] ??Excision with image-guided localization ?Lymph Node Sampling: ??[place] lymph node(s) ?Specimen Laterality: ??Left Tumor [...] ??DCIS not present in specimen Lymph Nodes ?[place] Lymph Nodes: [place] lymph node biopsy performed ?Number of [place] Nodes Examined: ??3 ?Number of Lymph [...] Spinal stenosis > A Fib. Cardiology at [facility]. S/P successful cardioversion May 2018. DEXA scan [...] laterality documented in this encounter Care Teams Hospice Director Relationship Specialty Start Date End Date Ana Her MD [address] [facility] 1 [place] [address] PCP - General 07/29/13 documented as of this encounter
--- OUTSIDE RECORDS SUMMARY | 2024-04-18 12:27 | XMS_ITS | Encounter Summary ---
[place] [address] Care Team Providers Care Junior Php Developer Name Role Phone Ana Her MD Primary Care Provider [phone] Encounter Details Date Type Department Care Team (Late st Contact Info) Description 05/06/2017 Telephone Radiation Oncology at [address] [address] Maria A Antonio RN Social [...] filedocumented in this encounter Care Teams Junior Php Developer Relationship Specialty Start Date End Date Ana Her MD [address] [facility] 1 [place] [address] PCP - General 07/29/13 documented as of this encounter
--- OUTSIDE RECORDS SUMMARY | 2024-04-18 12:27 | XMS_ITS | Encounter Summary ---
Author Organization [facility] [place] [address] Care Team Providers Care Chemical Reclamation Equipment Operator Name Role Phone Ana Her MD Primary Care Provider [phone] Encounter Details Date Type Department Care Team (Late st Contact Info) Description 05/10/2018 1:10 PM EST - 05/10/2018 11:59 PM [email or web address] Hospital Encounter Mammography[place] [address] Hiral Padgett APRN [facility] [place] [address] Encounter for screening mammogram for breast cancer [...] cancer documented in this encounter Care Teams Chemical Reclamation Equipment Operator Relationship Specialty Start Date End Date Ana Her MD [address] [place] [address] PCP - General 07/29/13 documented as of this encounter
--- OUTSIDE RECORDS SUMMARY | 2024-04-18 12:27 | XMS_ITS | Encounter Summary ---
[place] [address] Care Team Providers Care Transit Department Clerk Name Role Phone Ana Her MD Primary Care Provider [phone] Encounter Details Date Type Department Care Team (Late st Contact Info) Description 04/09/2017 Abstract Radiation Oncology at [address] [phone] Maria A Antonio, RN Social History Tobacco [...] on filedocumented in this encounter Care Teams Transit Department Clerk Relationship Specialty Start Date End Date Ana Her MD [address] [place] [address] PCP - General 07/29/13 documented as of this encounter
--- OUTSIDE RECORDS SUMMARY | 2024-04-18 12:27 | XMS_ITS | Encounter Summary ---
Author [place] [address] Care Team Providers Care Point Of Care Specialist Name Role Phone Ana Her MD Primary Care Provider [phone] Reason for Visit * Reason Comments Establish Care * Consultation (Routine) - Specialty Diagnoses / Procedures Referred By Christiano hackett Referred To Contact Hematology and Oncology Diagnoses Other abnormal and inconclusive findings on diagnostic imaging of breast abnormal mammo, left breast Jackie Cisneros, WENDY [address] [place] [address] [facility] Hem Onc [address] [place] [address] Referral ID Status Reason Start Date Expiration Date V isits Requested Visits Authorized [id number] Consult, Test & Treat [facility] 02/17/2017 05/20/2017 6 6 Encounter Details Date Type Department Care Team (Late st Contact Info) Description 03/03/2017 9:00 AM EDT Office Visit [place] [address] Malika Chen MD [facility] [place] [address] Argentina Sanchez, RN Malignant neoplasm [...] she will meet with medical and radiation ([facility]) oncologists after surgery. 4. Contact phone number for questions or concerns in the immediate post- operative period. 5. Comprehensive Breast Program Binder. 6. Post Breast Surgery Exercises handout created by physical therapists at [facility]. 7. Breast Cancer Treatment Process care map provided and reviewed. 8. Things to Consider...What I Wish I Knew advice from breast cancer patients handout provided. She verbalized understanding of the plan of care and states all her questions were answered. Twentyminutes was spent in education and providing support. Alma Delia has our contact information. She will call the neurosurgical physician assistant to schedule surgery after she has [...] Alma Delia had a bone scan in [place] which was read as possible metastasis in the left tibia. Of note- she fractured this area recently. She has recovered well. PMH HNT NIDDM not on meds Spinal stenosis Fractured left tibial plateau December, GERD FH: Maternal first cousin with breast cancer Brother with rectal cancer Sister with PE SH: lives alone. Has good support from sisters who live in [place]. Non smoker. Has a son who lives [...] positive documented in this encounter Care Teams Point Of Care Specialist Relationship Specialty Start Date End Date Ana Her MD [address] [place] [address] PCP - General 07/29/13 documented as of this encounter
--- OUTSIDE RECORDS SUMMARY | 2024-04-18 12:27 | XMS_ITS | Encounter Summary ---
[place] [address] Care Team Providers Care Deputy Manager Name Role Phone Ana Her MD Primary Care Provider [phone] Encounter Details Date Type Department Care Team (Late st Contact Info) Description 03/18/2017 Telephone [place] [phone] Bryanna Marsh RN Social History Tobacco Use [...] notes she had a colonoscopy done at [facility] and developed atrial fibrillation; she has been started on blood thinners. She was just discharged from the [facility] hospital, and called us to let us [...] give Digna a call her number is [phone]. The below is from Dr. Chen visit with Digna. Assessment and Plan: ?? 71 yo female with radiographic stage I ER/IN+, HER2- IDC of the left breast. No [...] on filedocumented in this encounter Care Teams Deputy Manager Relationship Specialty Start Date End Date Ana Her MD [address] [place] [address] PCP - General 07/29/13 documented as of this encounter
--- OUTSIDE RECORDS SUMMARY | 2024-04-18 12:27 | XMS_ITS | Encounter Summary ---
Author Organization [facility] [place] [address] Care Team Providers Care Mail Opener Name Role Phone Ana Her MD Primary Care Provider [phone] Encounter Details Date Type Department Care Team (Late st Contact Info) Description 03/30/2017 [place] [address] January Ward MSW Social History Tobacco Use [...] was recently diagnosed with invasive mucinous carcinoma. [facility] attempted to meet with pt in Same Day surgery this morning but she was still in radiology. I spoke with her ex-, Keith, who states she will be staying with him tondenise. Their granddaughters are traveling from [place] and plan to accompany pt to see her die grinder at [facility] tomorrow. Pt has been followed by this physician for her cardiac problems. [facility] will continue to provide support and resources to pt. documented in this encounter Plan of Treatment Not on file documented as of this encounter Visit Diagnoses Not on filedocumented in this encounter Care Teams Mail Opener Relationship Specialty Start Date End Date Ana Her MD [address] [facility] 1 [place] [address] PCP - General 07/29/13 documented as of this encounter
--- OUTSIDE RECORDS SUMMARY | 2024-04-18 12:27 | XMS_ITS | Encounter Summary ---
Author Organization [facility] [place] [address] Care Team Providers Care Diabetes Nurse Name Role Phone Ana Her MD Primary Care Provider [phone] Encounter Details Date Type Department Care Team (Late st Contact Info) Description 03/04/2017 Orders Only [place] [address] Malika Chen MD [facility] [place] [address] Malignant neoplasm of upper-outer quadrant of left [...] MD IMG MAMMO ORDERABLE S * Mammo [place] Node Injection (03/30/2017 9:01 AM EST) Anatomical [...] positive documented in this encounter Care Teams Diabetes Nurse Relationship Specialty Start Date End Date Ana Her MD [address] [facility] 1 [place] [address] PCP - General 07/29/13 documented as of this encounter
--- OUTSIDE RECORDS SUMMARY | 2024-04-18 12:27 | XMS_ITS | Encounter Summary ---
[place] [address] Care Team Providers Care Steam Conditioning Operator Name Role Phone Ana Her MD Primary Care Provider [phone] Encounter Details Date Type Department Care Team (Late st Contact Info) Description 05/19/2017 Telephone Hematology [place] [address] Sandy Chapman Social History Tobacco Use Types [...] on filedocumented in this encounter Care Teams Steam Conditioning Operator Relationship Specialty Start Date End Date Ana Her MD [address] [place] [address] PCP - General 07/29/13 documented as of this encounter
--- OUTSIDE RECORDS SUMMARY | 2024-04-18 12:27 | XMS_ITS | Encounter Summary ---
Author Organization [facility] [place] [address] Care Team Providers Care Sec Accountant Name Role Phone Ana Her MD Primary Care Provider [phone] Reason for Visit * Reason Comments Schedule Office Case Encounter Details Date Type Department Care Team (Late st Contact Info) Description 04/23/2017 2:00 PM EST Office Visit Hematology [place] [address] Ricky Lowry MD [facility] [place]ATOLOGY[place] [address] Malignant neoplasm of lower-outer quadrant of left [...] cancer cells with immunostaining) Stain intensity: Strong [place] immunoreactivity: Positive (>90% cancer cells with immunostaining) [...] ??Excision with image-guided localization ?Lymph Node Sampling: ??[place] lymph node(s) ?Specimen Laterality: ??Left Tumor ?Histologic [...] ??DCIS not present in specimen Lymph Nodes ?[place] Lymph Nodes: [place] lymph node biopsy performed ?Number of [place] Nodes Examined: ??3 ?Number of Lymph Node(s) [...] DEXA scan was in this year at [facility]. There is no history of thromboembolic events. [...] positive documented in this encounter Care Teams Sec Accountant Relationship Specialty Start Date End Date Ana Her MD [address] [place] [address] PCP - General 07/29/13 documented as of this encounter
--- OUTSIDE RECORDS SUMMARY | 2024-04-18 12:27 | XMS_ITS | Encounter Summary ---
Author Organization [facility] [place] [address] Care Team Providers Care Steel Checker Name Role Phone Ana Her MD Primary Care Provider [phone] Reason for Visit * Reason Comments Radiation Consult * Consultation (Routine) - Closed Specialty Diagnoses / Procedures Referred By Christiano hackett Referred To Contact Radiation Oncology Diagnoses Breast cancer Malika Chen MD [facility] [place] [address] Stj Rad Onc Office [address] [place] [phone] Referral ID Status Reason Start Date Expiration Date Visits Re quested Visits Authorized [id number] Closed 03/17/2017 03/17/2018 1 1 Encounter Details Date Type Department Care Team (Late st Contact Info) Description 04/13/2017 10:00 AM EST Office Visit Radiation Oncology at [address] [address] Faye Velez MD [facility] [place] [address] Malignant neoplasm of left female breast, unspecified [...] RADIATION ONCOLOGY NURSING INITIAL NURSING ASSESSMENT IDENTIFICATION: iDgna Olson is a 71 y.o. year-old female [...] cm from nipple. Path: Invasive mucinous ca, ER+SC+, Her2 FISH neg. 03/03/[address] [...] she is being evaluated for afib @ [facility]. 04/15/17; has been wearing a ziopatch [...] 6.43) performed by Malika Chen MD at [facility] MAIN OR ??? PRO INTRAOP SENTINEL LYMPH ID W/DYE INJECTION Left 03/30/2017 INTRAOPERATIVE ID (MAPPING) SENTINEL LYMPH NODE,INCLUDES INJECTION (WRVU 2.5) performed by Malika Chen MD at [facility] MAIN OR ??? PRO MASTECTOMY, PARTIAL Left 03/30/2017 MASTECTOMY PARTIAL (WRVU 10.13) performed by Malika Chen MD at [facility] MAIN OR Your Medications These [...] A: Breast ca, L, mucinous, gr 2, ER+SC+, Her2 neg, s/p lumpectomy & SNB, pT1b [...] treated breast; cough; shortness of breath; tiredness. Late/custodial side effects to breast discussed include: Treated [...] breast documented in this encounter Care Teams Steel Checker Relationship Specialty Start Date End Date Ana Her MD [address] [place] [address] PCP - General 07/29/13 documented as of this encounter
--- OUTSIDE RECORDS SUMMARY | 2024-04-18 12:27 | XMS_ITS | Encounter Summary ---
Author Organization [facility] [place] [address] Care Team Providers Care Blasting Contract Man Name Role Phone Ana Her MD Primary Care Provider [phone] Encounter Details Date Type Department Care Team (Late st Contact Info) Description 03/03/2017 Notes Only [place] [address] January Ward MSW Social History Tobacco Use Types Packs/Day Years Used Date Smoking Tobacco: Never Smokeless Tobacco: Never Sex and Gender Information Value Date Recorded Sex Assigned at Not on file Gender Identity Not on file Sexual Orientation Not on file documented as of this encounter Progress Notes * January Ward MSW - 03/03/2017 12:56 PM EDT OFFICE OF CARE MANAGEMENT/CONTINUING CLOTH BLEACHING RANGE BACK TENDER Reason for referral: Digna Olson is a 71 year old, female who was seen in the multidisciplinarybreast care clinic for a surgical consult as she was recently diagnosed with ER/AZ+, left breast, invasive mucinous carcinoma. After meeting with Dr. Chen, pt has decided to have a lumpectomy/SLNB. If pt needs radiation therapy, she will receive it at the [facility]. [facility] met with pt to complete a psychosocial assessment and to explain my role in the breast program. Pt was encouraged to contact me if she has any questions or concerns. Living arrangements/social supports: Pt lives alone in [place], [place]. She has support from her family and is accompanied to today's appt by her sisters who live in [place]. Employment/Insurance/Finances: Pt is retired and receives Social Security Shelter Benefits. Pt has Medicare A and B [...] Antonia Oliva is the SW for the [facility]. Plan: [facility] will continue to follow pt to assess and assist with their psychosocial needs. DELONTE Moreno [facility]/[place] [phone] Pager #[phone] documented in this encounter Plan of Treatment Not on file documented as of this encounter Visit Diagnoses Not on filedocumented in this encounter Care Teams Blasting Contract Man Relationship Specialty Start Date End Date Ana Her MD [address] [place] [address] PCP - General 07/29/13 documented as of this encounter
--- OUTSIDE RECORDS SUMMARY | 2024-04-18 12:27 | XMS_ITS | Encounter Summary ---
Author Organization [facility] [place] [address] Care Team Providers Care Batter Mixer Name Role Phone Ana Her MD Primary Care Provider [phone] Encounter Details Date Type Department Care Team (Latest Contact Info) Description 02/25/2017 1:31 PM EDT Hospital En[place] [address] Maryam Yee MD [facility] [place] [address] Abnormal mammogram Discharge Disposition: Home Social History [...] unspecified documented in this encounter Care Teams Batter Mixer Relationship Specialty Start Date End Date Ana Her MD [address] [place] [address] PCP - General 07/29/13 documented as of this encounter
--- OUTSIDE RECORDS SUMMARY | 2024-04-18 12:27 | XMS_ITS | Encounter Summary ---
Author Organization [facility] [place] [address] Care Team Providers Care Stave Bolt Equalizer Name Role Phone Ana Her MD Primary Care Provider [phone] Encounter Details Date Type Department Care Team (Late st Contact Info) Description 03/30/2017 9:30 AM EST - 03/30/2017 11:28 AM EST [place] [phone] Brant Chen MD [facility] [place] [address] MASTECTOMY PARTIAL (WRVU 10.13) Social History Tobacco [...] shower 24 hours Activity as tolerated Call [phone] with any questions Do not soak incision [...] was obtained which revealed IDC which is ER/WA+, her2-. She has no known breast masses, no adenopathy, no nipple discharge. ?? Alma Delia had a bone scan in [place] which was read as possible metastasis in the left tibia. Of note- she fractured this area recently. She has recovered well. ?? PMH HNT NIDDM not on meds Spinal stenosis Fractured left tibial plateau [place], 2017 GERD ?? FH: Maternal first cousin with breast cancer Brother with rectal cancer Sister with PE ? SH: lives alone. Has good support from sisters who live in [place]. Non smoker. Has a son who lives [...] 71 yo female with radiographic stage I ER/WA+, HER2- IDC of the left breast. No [...] Chen MD - 03/30/2017 12:27 PM EST [facility] Operative Note Patient Name: Digna Olson : [id number] MR#: [id number] Case Date: 03/30/2017 Surgeon: Surgeon(s) and Role: [...] [place] [address]. Remaining count within the axilla was 1982. [...] MD PATHOLOGY/CYTOLOGY ORDERABLES [facility] [place] [address] * Specimen to Pathology (surgical or derm) (03/30/2017 12:08 PM EST) AP Specimen 03/30/2017 12:0 8 PM EST 03/30/2017 12:08 PM EST Narrative [facility] - 03/30/2017 12:08 PM EST Specimen requisition ordered. ??Separate Pathology report to follow Brant Chen MD PATHOLOGY/CYTOLOGY ORDERABLES Performing Organization Address [facility] Co de Phone Number [facility] [place] [address] * Specimen to Pathology (surgical or derm) (03/30/2017 12:00 PM EST) AP Specimen 03/30/2017 12:0 0 PM EST 03/30/2017 12:00 PM EST Narrative [facility] - 03/30/2017 12:00 PM EST Specimen requisition ordered. ??Separate Pathology report to follow Brant Chen MD PATHOLOGY/CYTOLOGY ORDERABLES Performing Organization Address [facility] [place] [address] * Specimen to Pathology (surgical or derm) (03/30/2017 11:51 AM EST) AP Specimen 03/30/2017 11:5 1 AM EST 03/30/2017 11:51 AM EST Narrative [facility] - 03/30/2017 11:51 AM EST Specimen requisition ordered. ??Separate Pathology report to follow Brant Chen MD PATHOLOGY/CYTOLOGY ORDERABLES Performing Organization Address [facility] Co de Phone Number [facility] [place] [phone] * Surgical Pathology Report (03/30/2017 11:50 AM EST) Final Diagnosis [id number] ? Location: [facility]; [facility]; A The signing pathologist has (i) examined the relevant preparation(s) for the specimen(s) and (ii) rendered or confirmed the diagnosis(es). . ?Surgical Pathology DIAGNOSIS A,B - See Synoptic C - Left breast, Deep/lateral margin re-excision - ?Benign fatty breast tissue. D - Left breast, Superficial margin re-excision - ?Benign fatty breast tissue. See Note Note - [place] ink (indicating additional cranial margin) is also present on this superficial margin re-excision. ---- Specimen Parts: ?? A - Left axilliary sentinel node B - Left breast partial mastectomy Specimen ? Procedure: ??Excision with image-guided localization ? Lymph Node Sampling: ?? [place] lymph node(s) ? Specimen Laterality: ?? Left [...] not present in specimen Lymph Nodes ? [place] Lymph Nodes: ?? [place] lymph node biopsy performed ? Number of [place] Nodes Examined: ?3 ? Number of Lymph [...] Chávez DO Verified: ??04/01/2017 ?Pathologist Performed at: ??-[facility] Dept. of Pathology, [place], [place] CLINICAL INFORMATION Specimen Submitted: A - [...] and there are ??no close margins. per [facility] Radiology . Specimen Description: According to [...] 0.8 x 0.4 x 0.4 cm. Color: [place] and yellow. Consistency: Soft. Location: Slices III and IV. Nearest Margin: 0.6 cm to the cranial margin. Other Margins: 0.8 cm to the deep margin, 1.0 cm to the superficial margin, ? > 2 cm from all other margins. OTHER Parenchyma: Predominately fatty with scant fibrous tissue. Wire/Clip: Biopsy marker clip identified within slice IV. SECTIONS/PROCESSI NG: (1) solar sales representative and assessor slice I, lateral margin; (2) slice III, lesion to cranial margin; (3-5) remainder of slice III; (6) slice IV, lesion to cranial margin (clip); (7-8) remainder of slice IV; (9) solar sales representative and assessor slice V; (10) solar sales representative and assessor slice X, medial margin. (R10) Ischemic Time: [...] sectioned. (T3) ??sns 04/01/2017 9:38 AM EST [facility] BREAST STRUCTURE / Unknown 03/30/2017 11:50 AM EST 03/30/2017 11:50 AM EST BREAST STRUCTURE / Unknown 03/30/2017 11:50 AM EST 03/30/2017 11:50 AM EST BREAST STRUCTURE / Unknown 03/30/2017 11:50 AM EST 03/30/2017 11:50 AM EST BREAST STRUCTURE / Unknown 03/30/2017 11:50 AM EST 03/30/2017 11:50 AM EST Brant Chen MD PATHOLOGY/CYTOLOGY ORDERABLES [facility] [place] [address] * Mammo Direct Digital Left (03/30/2017 9:15 [...] Routine documented in this encounter Care Teams Stave Bolt Equalizer Relationship Specialty Start Date End Date Ana Her MD [address] [place] [address] PCP - General 07/29/13 documented as of this encounter
--- OUTSIDE RECORDS SUMMARY | 2024-04-18 12:27 | XMS_ITS | Encounter Summary ---
Author Organization [facility] [place] [address] Care Team Providers Care Radiator Repairer Name Role Phone Ana Her MD Primary Care Provider Encounter Details Date Type Department Care Team (Latest Contact Info) Description 05/22/2020 10:46 AM EST - 05/22/2020 11:59 PM [facility] Hospital Encounter Mammography/[place] [phone] Jeanine Lobato APRN [facility] [place] [address] Malignant neoplasm of lower-outer quadrant of left [...] mammogram documented in this encounter Care Teams Radiator Repairer Relationship Specialty Start Date End Date Ana Her MD [facility] [address] [facility] [address] [place] [address] PCP - General 07/29/13 documented as of this encounter
--- OUTSIDE RECORDS SUMMARY | 2024-04-18 12:27 | XMS_ITS | Encounter Summary ---
[place] [address] Care Team Providers Care Music Autographer Name Role Phone Ana Her MD Primary Care Provider [phone] Encounter Details Date Type Department Care Team (Late st Contact Info) Description 02/27/2017 Telephone [place]ology [place] [phone] Argentina Sanchez RN Social History Tobacco Use [...] a 71 y.o. female with newly diagnosed ER/LA+/HER2 corey pending left breast invasive mucinous cancer (left breast U/S guided biopsy [place]25/2017 [place] [facility] Alma Delia sounds positive and has support. She will have someone accompany her to appointments. She appears to be coping well but is anxious to meet with a breast surgeon to determine a treatment plan. Alma Delia have a bone SPECT done 1-2 months ago at [facility] and her doctor there questioned an [...] for her review (a link to the [facility] Early Stage Breast Cancer program). The Breast [...] on filedocumented in this encounter Care Teams Music Autographer Relationship Specialty Start Date End Date Ana Her MD [address] [place] [address] PCP - General 07/29/13 documented as of this encounter
--- OUTSIDE RECORDS SUMMARY | 2024-04-18 12:27 | XMS_ITS | Encounter Summary ---
[place] [address] Care Team Providers Care Pharmacy Intake Technician Name Role Phone Ana Her MD Primary Care Provider [phone] Reason for Visit * Reason Comments Follow Up Surgery Encounter Details Date Type Department Care Team (Late st Contact Info) Description 07/13/2017 1:30 PM EDT Office Visit [place] [address] Hiral Padgett APRN [facility] [place] [address] History of breast cancer Social History Tobacco [...] with image-guided localization ?Lymph Node Sampling: ?? [place] lymph node(s) ?Specimen Laterality: ?? Left Tumor [...] ?DCIS not present in specimen Lymph Nodes ?[place] Lymph Nodes: ?? [place] lymph node biopsy performed ?Number of [place] Nodes Examined: ?3 ?Number of Lymph Node(s) [...] breast documented in this encounter Care Teams Pharmacy Intake Technician Relationship Specialty Start Date End Date Ana Her MD [address] [place] [address] PCP - General 07/29/13 documented as of this encounter
--- OUTSIDE RECORDS SUMMARY | 2024-04-18 12:27 | XMS_ITS | Encounter Summary ---
Author Organization [facility] [place] [address] Care Team Providers Care Contract Agent Name Role Phone Ana Her MD Primary Care Provider [phone] Encounter Details Date Type Department Care Team (Late st Contact Info) Description 05/31/2019 1:00 PM EST Office [place] [address] Jeanine Lobato INSURANCE EXECUTIVE [facility] [place] [address] Encounter for follow-up surveillance of breast cancer; [...] was obtained which revealed IDC which is ER/UT+, Her2-. She hasno known breast masses, no adenopathy, no nipple discharge. 02/25/17 Needle biopsies Left breast: Diagnosis: Invasive mucinous carcinoma ? Intermediate grade, modified SBR score = 6 Microcalcifications:??Few calcifications associated with invasive carcinoma ER immunoreactivity: Positive UT immunoreactivity: Positive HER2 FISH: Negative for amplification [...] herex- speak almost daily. He lives in [place]. She enjoys reading and cooking. She does [...] situation. Results: Imaging performed (bilateral mammogram) at [facility] today shows no evidence of malignancy, BIRADS [...] symptoms. Jeanine Lobato APRN Surgical Oncology P [phone] F [phone] [facility] documented in this encounter Plan of [...] mammogram documented in this encounter Care Teams Contract Agent Relationship Specialty Start Date End Date Ana Her MD [employer] [address] [facility] [place] [address] PCP - General 07/29/13 documented as of this encounter
--- OUTSIDE RECORDS SUMMARY | 2024-04-18 12:27 | XMS_ITS | Encounter Summary ---
Author Organization [facility] [place] [address] Care Team Providers Care Interactive Media Specialist Name Role Phone Ana Her MD Primary Care Provider [phone] Encounter Details Date Type Department Care Team (Late st Contact Info) Description 10/23/2017 9:43 AM EDT - 10/23/2017 11:59 PM EDT Hospital [place] [phone] Hiral Padgett APRN [facility] [address] History of breast cancer Discharge Disposition: Home [...] breast documented in this encounter Care Teams Interactive Media Specialist Relationship Specialty Start Date End Date Ana Her MD [facility] [address] [place] [address] PCP - General 07/29/13 documented as of this encounter
--- OUTSIDE RECORDS SUMMARY | 2024-04-18 12:27 | XMS_ITS | Encounter Summary ---
[place] [address] Care Team Providers Care Project Reservoir Engineer Name Role Phone Ana Her MD Primary Care Provider [phone] Encounter Details Date Type Department Care Team (Late st Contact Info) Description 03/30/2017 11:19 AM EST Anesthesia Event [place] [address] Bridgette Mclaughlin MD [facility] [place] [address] Laura Koo, PIPELINE ENGINEER [address] [place] [address] Anesthesia Record Procedure Summary Procedure Name Responsible [...] 0815; median cubital vein (antecubital fossa), right; [id number] catheter system; 20 gauge, 1 in length; [...] Bridgette Mclaughlin - 03/30/2017 2:13 PM EST [facility] [place] Department of Anesthesiology Post-procedure Note Patient: Digna Olson Procedure Summary Date Anesthesia Start Anesthesia Stop Room / Location 03/30/17 1119 [id number] [facility] OR 24 / [facility] MAIN OR Procedure [...] All Anesthesia Providers: Anesthesiologist: Bridgette Mclaughlin MD PIPELINE ENGINEER: Laura Koo CRNA Most Recent Vitals: 03/30/17 [...] risks discussed with patient. Plan discussed with PIPELINE ENGINEER. PAT Staff Note documented in this encounter [...] r documented in this encounter Care Teams Project Reservoir Engineer Relationship Specialty Start Date End Date Ana Her MD [address] [place] [address] PCP - General 07/29/13 documented as of this encounter
--- OUTSIDE RECORDS SUMMARY | 2024-04-18 12:27 | XMS_ITS | Encounter Summary ---
[place] [address] Care Team Providers Care Flight Superintendent Name Role Phone Ana Her MD Primary Care Provider [phone] Encounter Details Date Type Department Care Team (Latest Contact Info) Description 03/30/2017 7:27 AM EST - 03/30/2017 1:37 PM EST Hospital Encounter [place] [id number] Brant Chen MD [facility] [place] [address] Discharge Disposition: Home Social History Tobacco Use [...] shower 24 hours Activity as tolerated Call [phone] with any questions Do not soak incision [...] was obtained which revealed IDC which is ER/PA+, her2-. She has no known breast masses, no adenopathy, no nipple discharge. ?? Alma Delia had a bone scan in [place] which was read as possible metastasis in the left tibia. Of note- she fractured this area recently. She has recovered well. ?? PMH HNT NIDDM not on meds Spinal stenosis Fractured left tibial plateau December, GERD ?? FH: Maternal first cousin with breast cancer Brother with rectal cancer Sister with PE ? SH: lives alone. Has good support from sisters who live in [place]. Non smoker. Has a son who lives [...] 71 yo female with radiographic stage I ER/PA+, HER2- IDC of the left breast. No [...] Chen MD - 03/30/2017 12:27 PM EST [facility] [place] [place] Operative Note Patient Name: Digna Olson : [id number] MR#: [id number] Case Date: 03/30/2017 Surgeon: Surgeon(s) and Role: [...] [place] [address]. Remaining count within the axilla was 1982. [...] PM EST 03/30/2017 12:09 PM EST Narrative [facility] - 03/30/2017 12:09 PM EST Specimen requisition ordered. ??Separate Pathology report to follow Brant Chen MD PATHOLOGY/CYTOLOGY ORDERABLES [facility] [place] [address] * Specimen to Pathology (surgical or derm) (03/30/2017 12:08 PM EST) AP Specimen 03/30/2017 12:0 8 PM EST 03/30/2017 12:08 PM EST Narrative [facility] - 03/30/2017 12:08 PM EST Specimen requisition ordered. ??Separate Pathology report to follow Brant Chen MD PATHOLOGY/CYTOLOGY ORDERABLES Performing Organization Address [facility] [place] [address] * Specimen to Pathology (surgical or derm) (03/30/2017 12:00 PM EST) AP Specimen 03/30/2017 12:0 0 PM EST 03/30/2017 12:00 PM EST Narrative [facility] - 03/30/2017 12:00 PM EST Specimen requisition ordered. ??Separate Pathology report to follow Brant Chen MD PATHOLOGY/CYTOLOGY ORDERABLES Performing Organization Address [facility] Co de Phone Number [place] [phone] * Specimen to Pathology (surgical or derm) (03/30/2017 11:51 AM EST) AP Specimen 03/30/2017 11:5 1 AM EST 03/30/2017 11:51 AM EST Narrative [facility] - 03/30/2017 11:51 AM EST Specimen requisition ordered. ??Separate Pathology report to follow Brant Chen MD PATHOLOGY/CYTOLOGY ORDERABLES Performing Organization Address [facility] [place] [address] * Surgical Pathology Report (03/30/2017 11:50 AM EST) Final Diagnosis [id number] ? Location: [facility]; [facility]; A The signing pathologist has (i) examined the relevant preparation(s) for the specimen(s) and (ii) rendered or confirmed the diagnosis(es). . ?Surgical Pathology DIAGNOSIS A,B - See Synoptic C - Left breast, Deep/lateral margin re-excision - ?Benign fatty breast tissue. D - Left breast, Superficial margin re-excision - ?Benign fatty breast tissue. See Note Note - Rosebud ink (indicating additional cranial margin) is also present on this superficial margin re-excision. ---- Specimen Parts: ?? A - Left axilliary sentinel node B - Left breast partial mastectomy Specimen ? Procedure: ??Excision with image-guided localization ? Lymph Node Sampling: ?? [place] lymph node(s) ? Specimen Laterality: ?? Left [...] not present in specimen Lymph Nodes ? [place] Lymph Nodes: ?? [place] lymph node biopsy performed ? Number of [place] Nodes Examined: ?3 ? Number of Lymph [...] Chávez DO Verified: ??04/01/2017 ?Pathologist Performed at: ??-[facility] [place] Dept. of Pathology, [place], [place] CLINICAL INFORMATION Specimen Submitted: A - [...] and there are ??no close margins. per [facility]iology . Specimen Description: According to the established protocol the ink designations are red (medial), yellow (lateral), orange (cranial), green (caudal), black (deep) and blue (superficial). Tissue Sections: The specimen is serially sectioned perpendicular to the long axis from lateral to medial into X slices, each averaging 0.45 cm in thickness. LESION Description: Biopsy site. Size: 0.8 x 0.4 x 0.4 cm. Color: Toxey and yellow. Consistency: Soft. Location: Slices III and IV. Nearest Margin: 0.6 cm to the cranial margin. Other Margins: 0.8 cm to the deep margin, 1.0 cm to the superficial margin, ? > 2 cm from all other margins. OTHER Parenchyma: Predominately fatty with scant fibrous tissue. Wire/Clip: Biopsy marker clip identified within slice IV. SECTIONS/PROCESSI NG: (1) escrow representative slice I, lateral margin; (2) slice III, lesion to cranial margin; (3-5) remainder of slice III; (6) slice IV, lesion to cranial margin (clip); (7-8) remainder of slice IV; (9) escrow representative slice V; (10) escrow representative slice X, medial margin. (R10) Ischemic [...] sectioned. (T3) ??sns 04/01/2017 9:38 AM EST [facility] BREAST STRUCTURE / Unknown 03/30/2017 11:50 AM EST 03/30/2017 11:50 AM EST BREAST STRUCTURE / Unknown 03/30/2017 11:50 AM EST 03/30/2017 11:50 AM EST BREAST STRUCTURE / Unknown 03/30/2017 11:50 AM EST 03/30/2017 11:50 AM EST BREAST STRUCTURE / Unknown 03/30/2017 11:50 AM EST 03/30/2017 11:50 AM EST Brant Chen MD PATHOLOGY/CYTOLOGY ORDERABLES [facility] [place] [address] * Mammo Direct Digital Left (03/30/2017 9:15 [...] Routine documented in this encounter Care Teams Flight Superintendent Relationship Specialty Start Date End Date Ana Her MD [address] [place] [address] PCP - General 07/29/13 documented as of this encounter
--- OUTSIDE RECORDS SUMMARY | 2024-04-18 12:27 | XMS_ITS | Encounter Summary ---
Author Organization [facility] [place] [address] Care Team Providers Care Pottery Decorator Name Role Phone Ana Her MD Primary Care Provider [phone] 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 * Diagnostic Test (Routine) - Closed Specialty Diagnoses / Procedures Referred By Christiano hackett Referred To Contact Radiology Diagnoses 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, estrogen receptor positive Osteopenia of neck of femur, unspecified laterality custodial current 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 Procedures DXA Central-Spine, Hip, And/Or Whole Body (Generic) Ricky Lowry MD [facility] HEMATOLOGY/[place] [address] [facility] Rad Xray [address] [place] [address] [place] [address] Referral ID Status Reason Start Date Expiration Date V isits Requested Visits Authorized [id number] Closed Specialty Service Requested 05/10/2018 05/10/2019 1 1 Reason for Visit * Reason Comments Follow-up Encounter Details Date Type Department Care Team (Late st Contact Info) Description 05/10/2018 2:45 PM EST Office Visit Hematology [place] [address] Ricky Lowry MD [facility] [place]EMATOLOG[place] [address] 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, estrogen receptor positive; Osteopenia of neck of femur, unspecified laterality; custodial current 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 Social History [...] cancer cells with immunostaining) Stain intensity: Strong MS immunoreactivity: Positive (>90% cancer cells with immunostaining) [...] ??Excision with image-guided localization ?Lymph Node Sampling: ??[place] lymph node(s) ?Specimen Laterality: ??Left Tumor ?Histologic [...] ??DCIS not present in specimen Lymph Nodes ?[place] Lymph Nodes: [place] lymph node biopsy performed ?Number of [place] Nodes Examined: ??3 ?Number of Lymph Node(s) [...] > A Fib. [place] [facility] Most recent [facility] scan was last year at [facility]. There is no history of thromboembolic [...] is planned for later this week (at [facility] No new problems with VELEZ, diplopia, cough, [...] chemotherapy. TACHO. Renewal of anastrazole sent. Given [facility] brochure to share with cousins. All [...] BMD measurements and plots are available in Dodreams under the imaging tab. Paper copies will be sent to providers without Dodreams access. If you have received this report without the data sheet and do not have access to Dodreams, please contact Radiology [facility] at [phone] Thursday thru Thursday 8am-4pm. Thank you for letting us participate in the care of this patient. For questions regarding this report, please contact the number below. ? Electronically signed by: Khushi Hughes [facility] ([phone]), at 11/10/2018 10:55 AM Narrative 11/10/2018 10:55 [...] BMD measurements and plots are available in Ovelinunder the imaging tab. Paper copies will be sent to providers without Dodreams access.If you have received this report without the data sheet and do not haveaccess to Dodreams, please contact Radiology [facility] at [phone] Thursday thruFriday 8am-4pm. Thank you for letting us participate in the care of this patient. Forquestions regarding this report, please contact the number below. 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
--- OUTSIDE RECORDS SUMMARY | 2024-04-18 12:27 | XMS_ITS | Encounter Summary ---
[place] [address] Care Team Providers Care Shooter'S Helper Name Role Phone Ana Her MD Primary Care Provider [phone] Encounter Details Date Type Department Care Team (Late st Contact Info) Description 04/05/2018 Telephone [place] [phone] Adrianna Jones Social History Tobacco Use Types [...] Padgett. Patient advises she is admitted at [facility] for afib and is pending procedure etc. Patient will call to reschedule once she is discharged home. documented in this encounter Plan of Treatment Not on file documented as of this encounter Visit Diagnoses Not on filedocumented in this encounter Care Teams Shooter'S Helper Relationship Specialty Start Date End Date Ana Her MD [address] [place] [address] PCP - General 07/29/13 documented as of this encounter
--- OUTSIDE RECORDS SUMMARY | 2024-04-18 12:27 | XMS_ITS | Encounter Summary ---
Author Organization [facility] [place] [address] Care Team Providers Care Wireless Sales Manager Name Role Phone Ana Her MD Primary Care Provider [phone] Encounter Details Date Type Department Care Team (Late st Contact Info) Description 05/10/2018 2:15 PM EST Office Visit [place] [address] Hiral Padgett CAN PUSHER [facility] [place] [address] History of breast cancer Social History Tobacco [...] with image-guided localization ?Lymph Node Sampling: ?? [place] lymph node(s) ?Specimen Laterality: ?? Left Tumor [...] ?DCIS not present in specimen Lymph Nodes ?[place]ks Lymph Nodes: ?? [place] lymph node biopsy performed ?Number of Dierks Nodes Examined: ?3 ?Number of Lymph Node(s) [...] mammogram today is cat 2. Leaving for [place] later today for a cardiac ablation/a fib at [facility]. Objective: Physical Exam Constitutional: [...] breast documented in this encounter Care Teams Wireless Sales Manager Relationship Specialty Start Date End Date Ana Her MD [address] [place] [address] PCP - General 07/29/13 documented as of this encounter
--- OUTSIDE RECORDS SUMMARY | 2024-04-18 12:27 | XMS_ITS | Encounter Summary ---
Author Organization [facility] [place] [address] Care Team Providers Care Parasitology Teacher Name Role Phone Ana Her MD Primary Care Provider [phone] Reason for Visit * Reason Comments Follow-up Encounter Details Date Type Department Care Team (Late st Contact Info) Description 10/23/2017 11:00 AM EDT Office Visit Hematology [place] [address] Mayra Page APRN [facility] GENERAL [place] [address] Malignant neoplasm of lower-outer quadrant of left [...] this encounter Progress Notes * Mayra Page, CORPORATE INVESTIGATOR - 10/23/2017 11:00 AM EDT Digna Olson [...] ??Excision with image-guided localization ?Lymph Node Sampling: ??[place] lymph node(s) ?Specimen Laterality: ??Left Tumor ?Histologic [...] ??DCIS not present in specimen Lymph Nodes ?[place]ase Lymph Nodes: [place]ase lymph node biopsy performed ?Number of Pease Nodes Examined: ??3 ?Number of Lymph Node(s) Examined (sentinel and nonsentinel): 3 ?Lymph Node Involvement: None identified Stage (pTNM) ?Pathological Stage: ?? pT1b pN0 PMH: Past Medical History: Diagnosis Date ??? Breast cancer ??? Fracture of tibia 12/2016 left tibial plateau ??? GERD (gastroesophageal reflux disease) ??? H/O non-insulin dependent diabetes mellitus ??? Spinal stenosis Most recent DEXA scan was 10/28/16 at [facility]. There is no history of thromboembolic events. [...] positive documented in this encounter Care Teams Parasitology Teacher Relationship Specialty Start Date End Date Ana Her MD [address] [place] [address] PCP - General 07/29/13 documented as of this encounter
--- OUTSIDE RECORDS SUMMARY | 2024-04-18 12:27 | XMS_ITS | Encounter Summary ---
Author Organization [facility] [place] [address] Care Team Providers Care Streets And Buildings Decorator Name Role Phone Ana Her MD Primary Care Provider [phone] Encounter Details Date Type Department Care Team (Latest Contact Info) Description 03/30/2017 8:30 AM [facility] Hospital [place] [address] Malika Chen MD [facility] [place] [address] Malignant neoplasm of upper-outer quadrant of left [...] positive documented in this encounter Care Teams Streets And Buildings Decorator Relationship Specialty Start Date End Date Ana Her MD [address] [place] [address] PCP - General 07/29/13 documented as of this encounter
--- OUTSIDE RECORDS SUMMARY | 2024-04-18 12:27 | XMS_ITS | Encounter Summary ---
Author Organization [place] [address] Care Team Providers Care Parcel Post Weigher Name Role Phone Ana Her MD Primary Care Provider [phone] Encounter Details Date Type Department Care Team (Late st Contact Info) Description 03/19/2017 Telephone [place] [address] Malika Chen MD [facility] [place] [address] Social History Tobacco Use Types Packs/Day Years [...] no unexpected bleeding. Surgery is scheduled in [facility]. documented in this encounter Plan of Treatment Not on file documented as of this encounter Visit Diagnoses Not on filedocumented in this encounter Care Teams Parcel Post Weigher Relationship Specialty Start Date End Date Ana Her MD [address] [facility] [address] [place] [address] PCP - General 07/29/13 documented as of this encounter
--- OUTSIDE RECORDS SUMMARY | 2024-04-18 12:27 | XMS_ITS | Encounter Summary ---
Author Organization [facility] [place] [address] Care Team Providers Care Biodiesel Production Technician Name Role Phone Ana Her MD Primary Care Provider [phone] Encounter Details Date Type Department Care Team (Late st Contact Info) Description 02/27/2017 Orders [place] [address] Malika Chen MD [facility] [place] [address] Malignant neoplasm of left breast in female, [...] panel (non-fasting) (03/03/2017 7:50 AM EDT) Glucose 139 65 - 199 mg/dL [facility] Comment:Diabetes: >=200 mg/d L plus symptoms Blood Urea Nitrogen 20(H) 8 - 18 mg/dL [facility] [...] - 107 mmol/L [facility] Carbon Dioxide 26 22 - 31 mmol/L [facility] Anion Gap 14 5 - 15 mmol/L [facility] Calcium 9.3 8.5 - 10.5 mg/dL [facility] Protein, Total 6.9 6.1 - 8.0 gm/dL [facility] Albumin 4.2 3.2 - 5.2 gm/dL [facility] Aspartate Aminotransferase 17 0 - 30 unit/L [facility] Alanine Aminotransferase 16 0 - 30 unit/L [facility] Alkaline Phosphatase 75 40 - 104 unit/L [facility] Bilirubin, Total 0.5 0.2 - 1.3 mg/dL [facility] Est Glomerular Filtration Rate 58(L) >=60 [facility] Comment: The reported eGFR should be multiplied by 1.2 for patients. The MDRD is not an appropriate measure of renal function for patients with body mass extremes or in patients with acute kidney failure. http://Bex.Piehole/DHnkdep http://Bex.Piehole/DHMCnkf Blood specimen (specimen) 03/03/2017 7:50 AM EDT 03/03/2017 8:03 AM EDT Narrative Resulting Agency Comment Spec In Lab Malika Chen MD CHEMISTRY ORDERABLE S [facility] [place] [address] documented in this encounter Visit Diagnoses Diagnosis Malignant neoplasm of left breast in female, estrogen receptor positive, unspecified site of breast documented in this encounter Care Teams Biodiesel Production Technician Relationship Specialty Start Date End Date Ana Her MD [address] [facility] 1 [place] [address] PCP - General 07/29/13 documented as of this encounter
--- OUTSIDE RECORDS SUMMARY | 2024-04-18 12:27 | XMS_ITS | Encounter Summary ---
Author Organization [facility] [place] [address] Care Team Providers Care Water And Sewer Systems Supervisor Name Role Phone Ana Her MD Primary Care Provider [phone] Reason for Visit * Reason Comments Follow-up Encounter Details Date Type Department Care Team (Late st Contact Info) Description 11/29/2019 2:45 PM EDT Office Visit Hematology [place] [phone] Ricky Lowry MD [facility] HEMATOLOGY[place] [address] Malignant neoplasm of lower-outer quadrant of left [...] ??Excision with image-guided localization ?Lymph Node Sampling: ??[place] lymph node(s) ?Specimen Laterality: ??Left Tumor [...] ??DCIS not present in specimen Lymph Nodes ?[place] Lymph Nodes: [place] lymph node biopsy performed ?Number of [place] Nodes Examined: ??3 ?Number of Lymph [...] > A Fib. Cardiology [place] [facility] S/P successful cardioversion May 2018. DEXA scan [...] positive documented in this encounter Care Teams Water And Sewer Systems Supervisor Relationship Specialty Start Date End Date Ana Her MD [facility] [address] [facility] 1 [place] [address] PCP - General 07/29/13 documented as of this encounter
--- OUTSIDE RECORDS SUMMARY | 2024-04-18 12:27 | XMS_ITS | Encounter Summary ---
Author Organization [place] [address] Care Team Providers Care Elder Counselor Name Role Phone Ana Her MD Primary Care Provider [phone] Encounter Details Date Type Department Care Team (Latest Contact Info) Description 03/30/2017 8:30 AM [facility] Hospital [place] [address] [facility] [place] [address] Malignant neoplasm of upper-outer quadrant of left [...] documented in this encounter Results * Mammo [place] Node Injection (03/30/2017 9:01 AM EST) Anatomical [...] interpretation and agree with the findings, ROBERT THOMPOSN at 03/30/2017 10:41 AM Narrative 03/30/2017 10:41 [...] mCi documented in this encounter Care Teams Elder Counselor Relationship Specialty Start Date End Date Ana Her MD [address] [place] [address] PCP - General 07/29/13 documented as of this encounter
--- OUTSIDE RECORDS SUMMARY | 2024-04-18 12:27 | XMS_ITS | Encounter Summary ---
[place] [address] Care Team Providers Care Dog Boarder Name Role Phone Ana Her MD Primary Care Provider [phone] Encounter Details Date Type Department Care Team (Latest Contact Info) Description 03/03/2017 7:55 AM EDT Laboratory Appointment Lab [address] [place] [address] Malignant neoplasm of left breast in female, [...] unspecified site of breast COMPREHENSIVE METABOLIC PANEL Routine 03/03/2017 7:50 AM EDT Malignant neoplasm of left breast in female, estrogen receptor positive, unspecified site of breast documented in this encounter Results * (ABNORMAL) Differential, Automated (03/03/2017 7:50 AM EDT) Neutrophil % 72.8 % [facility] Neutrophil Absolute 6.45(H) 1.70 - 6.10 x10(3)/mc L [facility] Lymph % 14.4 % [facility] Lymphocytes Abs 1.3 0.9 - 3.2 x10(3)/ L [facility] Monocyte % 5.6 % [facility] Monocyte Abs 0.5 0.3 - 0.9 x10(3)/ L [facility] Eos % 6.1 % [facility] Eosinophils Abs 0.5(H) 0.0 - 0.4 x10(3)/ L [facility] Basophil % 0.6 % [facility] Baso Absolute 0.0 0.0 - 0.1 x10(3)/ L [facility] Immature Gran % 0.50 % [facility] Comment: Immature granulocytes(IG's)percentage and absolute count will include metamyelocytes, myelocytes, and promyelocytes. Blood smears from CBCs yielding IG's will be scanned manually for concordance. If this scan disagrees with the automated IG or if promyelocytes are noted, a manual differential will be performed. Immature Gran Absolute 0.04 0.00 - 0.04 x10(3)/mc L [facility] Blood specimen (specimen) 03/03/2017 7:50 AM EDT 03/03/2017 8:03 AM EDT Narrative Resulting Agency Comment Spec In Lab Malika Chen MD HEMATOLOGY ORDERABL ES [facility] [place] [address] * (ABNORMAL) Hemogram (03/03/2017 7:50 AM EDT) White Blood Cell 8.8 4.0 - 9.5 x10(3)/mc L [facility] Red Blood Cell 3.80(L) 4.00 - 5.21 x10(6)/mc L [facility] Hemoglobin 12.3 11.7 - 15.5 gm/dL [facility] Hematocrit 36.3 35.7 - 45.8 % [facility] Mean Cell Volume 95.5(H) 82.6 - 94.[address] [facility] Mean Cell Hemoglobin 32.4(H) 27.1 - 32.[address] [facility] Mean Cell Hemoglobin Concentration 33.9 31.7 - 35.0 gm/dL [facility] Platelet 156 145 - 357 x10(3)/ L [facility] RDW Standard Deviation 48.3(H) 37.0 - 46.0 [facility] RDW coefficient of variation 13.9 11.5 - 14.1 % [facility] Mean Platelet Volume 11.9 7.6 - 12.[address] [facility] NRBC% auto 0.0 % [facility] NRBC Absolute 0.000 0.000 - 0.000 x10(3)/ L [facility] Blood specimen (specimen) 03/03/2017 7:50 AM EDT 03/03/2017 8:03 AM EDT Narrative Resulting Agency Comment Spec In Lab Malika hCen MD HEMATOLOGY ORDERABL ES [facility] [place] [address] * (ABNORMAL) Comprehensive metabolic panel (non-fasting) (03/03/2017 7:50 AM EDT) Glucose 139 65 - 199 mg/dL [facility] Comment:Diabetes: >=200 mg/d L plus symptoms Blood Urea Nitrogen 20(H) 8 - 18 mg/dL [facility] Creatinine 0.95 0.70 - 1.20 mg/dL [facility] Sodium 141 135 - 145 mmol/L [facility] Potassium 4.8 3.5 - 5.0 mmol/L [facility] Comment: Please note: ??Patients with WBC >100,000 may have falsely elevated Potassium levels. ??For accurate Potassium quantification in these patients send serum separator tube (gold top) for subsequent determinations. ??Contact the Clinical Chemistry Laboratory if there are any questions. Chloride 101 98 - 107 mmol/L [facility] Carbon Dioxide 26 22 - 31 mmol/L [facility] Anion Gap 14 5 - 15 mmol/L [facility] Calcium 9.3 8.5 - 10.5 mg/dL [facility] Protein, Total 6.9 6.1 - 8.0 gm/dL [facility] Albumin 4.2 3.2 - 5.2 gm/dL [facility] Aspartate Aminotransferase 17 0 - 30 unit/L [facility] Alanine Aminotransferase 16 0 - 30 unit/L [facility] Alkaline Phosphatase 75 40 - 104 unit/L [facility] Bilirubin, Total 0.5 0.2 - 1.3 mg/dL [facility] Est Glomerular Filtration Rate 58(L) >=60 [facility] Comment: The reported eGFR should be multiplied by 1.2 for patients. The MDRD is not an appropriate measure of renal function for patients with body mass extremes or in patients with acute kidney failure. http://SpinUtopia.HoozOn/DHnkdep http://SpinUtopia.com/DHMCnkf Blood specimen (specimen) 03/03/2017 7:50 AM EDT 03/03/2017 8:03 AM EDT Narrative Resulting Agency Comment Spec In Lab Malika Chen [place] [address] documented in this encounter Visit Diagnoses Diagnosis Malignant neoplasm of left breast in female, estrogen receptor positive, unspecified site of breast documented in this encounter Care Teams Dog Boarder Relationship Specialty Start Date End Date Ana Her MD [address] [place] [address] PCP - General 07/29/13 documented as of this encounter
--- OUTSIDE RECORDS SUMMARY | 2024-04-18 12:27 | XMS_ITS | Encounter Summary ---
Author Organization [facility] [place] [address] Care Team Providers Care Press Cutter Name Role Phone Ana Her MD Primary Care Provider [phone] Encounter Details Date Type Department Care Team (Latest Contact Info) Description 02/25/2017 2:59 PM EDT - 02/25/2017 11:59 PM EDT Hospital [place] [phone] Enzo Burkett MD [facility] [address] [place] [address] Abnormal finding on breast imaging Discharge Disposition: [...] associated with invasive carcinoma. Enzo Burkett MD [facility] [place] [place] MAMMO ORDERABLES * Surgical Pathology Report (02/25/2017 3:01 PM EDT) Final Diagnosis [id number] ? Location: 3L The signing pathologist has [...] FISH. ??Direct analysis was performed using the Vigiglobe Kit. ??Slide adequacy and signal enumeration were [...] factor receptor 2 testing in breast cancer: [place] [employer] of Clinical Oncology/College of [place] [employer] clinical practice guideline update. J Clin Oncol. 2013 Nov . Reviewed by: Kyara Logan MD Pharmacy Helper, Molecular Pathology _ Electronically signed by: ??Epifanio Serra MD Verified: ??03/04/2017 ?Pathologist Performed at: ??-[facility] Dept. of Pathology, [place], [place] ? Addendum ADDENDUM DISCUSSION Immunohistochemist ry Studies Specimen: Left breast, core needle biopsy (A1) ER immunoreactivity: Positive ( ??>90% cancer cells with immunostaining) Stain intensity: Strong . ADDENDUM DISCUSSION SD immunoreactivity: Positive ( ??>90% cancer cells with [...] The assays were performed according to the maintenance painter apprentice ' s instructions using Anti-ER (SP1) and Anti-SD (16) antibodies. Electronically signed by: ??Epifanio Serra MD Verified: ??02/27/2017 ?Pathologist Performed at: ??-[facility] [place] Dept. 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 of Pathology, [place], [place] DISCUSSION Studies for ER, SD, and HER2 have been ordered; results will [...] MD PATHOLOGY/CYTOLOGY O RDERABLES [facility] [place] [address] documented in this encounter Visit Diagnoses Diagnosis Abnormal finding on breast imaging Other (abnormal) findings on radiological examination of breast documented in this encounter Care Teams Press Cutter Relationship Specialty Start Date End Date Ana Her MD [address] [place] [address] PCP - General 07/29/13 documented as of this encounter
--- OUTSIDE RECORDS SUMMARY | 2024-04-18 12:28 | XMS_ITS | Encounter Summary ---
[place] [address] Care Team Providers Care Project Administrative Assistant Name Role Phone Ana Her MD Primary Care Provider [phone] 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 * Surgical (Routine) - Closed Specialty Diagnoses / Procedures Referred By Christiano hackett Referred To Contact Orthopaedics Diagnoses Lumbar spinal stenosis Michelle Hurtado APRN [facility] [place] [address] [address] [place] [address] [place] [address] Referral ID Status Reason Start Date Expiration Date V isits Requested Visits Authorized [id number] Closed Consult, Test & Treat 09/08/2014 09/08/2015 3 3 Encounter Details Date Type Department Care Team (Late st Contact Info) Description 09/08/2014 Orders Only [place] [address] Michelle Hurtado REPLANTING MACHINE OPERATOR [facility] [place] [place] [address] Lumbar spinal stenosis Social History Tobacco Use [...] claudication documented in this encounter Care Teams Project Administrative Assistant Relationship Specialty Start Date End Date Ana Her MD [facility] [address] [facility] [address] [place] [address] PCP - General 07/29/13 documented as of this encounter
--- OUTSIDE RECORDS SUMMARY | 2024-04-18 12:28 | XMS_ITS | Encounter Summary ---
Author Organization [facility] Address [facility] [place] [address] Care Team Providers Care Director Of Mobile Marketing Name Role Phone Ana Her MD Primary Care Provider Encounter Details Date Type Department Care Team (Latest Contact Info) Description 02/17/2017 - 02/17/2017 12:14 AM EDT Hospital Encounter Radiology Library at [facility] [place] [address] Maryam Yee MD [facility] [place] [address] Screening breast examination Discharge Disposition: Home Social [...] Yee MD IMG FILM LIBRARY O RDERABLES Performing Organization Address City/State/[facility] Co de Phone Number [place], [place] documented in this encounter Visit Diagnoses Diagnosis Screening breast examination Other screening breast examination documented in this encounter Care Teams Director Of Mobile Marketing Relationship Specialty Start Date End Date Ana Her MD [address] [place] [address] PCP - General 07/29/13 documented as of this encounter
--- OUTSIDE RECORDS SUMMARY | 2024-04-18 12:28 | XMS_ITS | Encounter Summary ---
Author Organization [facility] Address [facility] [place] [address] Care Team Providers Care Grapple Yarder Operator Name Role Phone Unavailable Primary Care Provider Unavailabl e Encounter Details Date Type Department Care Team (Latest Contact Info) Description 03/19/2006 - 03/19/2006 11:59 PM EST Hospital Encounter Radiology Library at [facility] [place] [address] Jackie Cisneros APRN [facility] [place] [address] Discharge Disposition: Home Social History Tobacco Use [...] Only Mammo (03/19/2006 12:00 AM EST) Narrative RAD - 02/23/2017 3:31 PM EDT This exam is for storage only and is auto-finalizing. Jackie Cisneros APRN IMG FILM LIBRARY ORD ERABLES DH NADINE Sethi documented in this encounter Visit Diagnoses Not on filedocumented in this encounter
--- OUTSIDE RECORDS SUMMARY | 2024-04-18 12:28 | XMS_ITS | Encounter Summary ---
Author Organization [facility] Address [address] [place] [address] Care Team Providers Care Tutoring Clinician Name Role Phone Unknown, Provider Primary Care Provider Unava ilable Encounter Details Date Type Department Care Team (Late st Contact Info) Description 03/17/2017 Results Only [facility] [phone] Kat Lazaro MD [facility] [address] [place] [id number] Social History Tobacco Use Types Packs/Day Years Used Date Smoking Tobacco: Never Assessed Comments Unknown Sex and Gender Information Value Date Recorded Sex Assigned at Not on file Legal Sex Female 9:32 EDT Gender Identity Not on file Sexual Orientation [...] ? DIGNA KIMBROUGH ? Accession #: ? [id number] ? : ? 1945 (Age: 71) ??F [...] (ASCP) 03/18/2017 8:14 AM End of Report [facility] 03/17/2017 16:1 5 EST 03/17/2017 16:15 EST us Kat Lazaro MD PATHOLOGY ORDERABLES Fin al Result [facility] [address] [place] [address] documented in this encounter Visit Diagnoses Not on filedocumented in this encounter Care Teams Tutoring Clinician Relationship Specialty Start Date End Date Unknown, Provider, PCP - General 01/13/14 documented as of this encounter
--- OUTSIDE RECORDS SUMMARY | 2024-04-18 12:28 | XMS_ITS | Encounter Summary ---
[place] [address] Care Team Providers Care Surfacing Machine Operator Name Role Phone Ana Her MD Primary Care Provider [phone] Reason for Visit * Reason Comments Low Back Pain Encounter Details Date Type Department Care Team (Late st Contact Info) Description 08/30/2014 8:35 AM EDT Office [place] [phone] Michelle Hurtado APRN [facility] [place] [address] Neurogenic claudication due to lumbar spinal stenosis [...] documented in this encounter Progress Notes * Michlele Hurtado, STRADDLE CARRIER OPERATOR - 08/30/2014 9:37 AM EDT CHIEF COMPLAINT: [...] activity. 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 MEDICATIONS [...] care of this patient. Michelle Hurtado MS, STRADDLE CARRIER OPERATOR, TAXI DRIVER-C [facility] documented in this encounter Plan of Treatment Not on file documented as of this encounter Visit Diagnoses Diagnosis Neurogenic claudication due to lumbar spinal stenosis Spinal stenosis, lumbar region, with neurogenic claudication documented in this encounter Care Teams Surfacing Machine Operator Relationship Specialty Start Date End Date Ana Her MD [address] [place] [address] PCP - General 07/29/13 documented as of this encounter
--- OUTSIDE RECORDS SUMMARY | 2024-04-18 12:28 | XMS_ITS | Encounter Summary ---
Author Organization [facility] Address [address] [place] [address] Care Team Providers Care Car Unloader Name Role Phone Unknown, Provider MD Primary Care Provider Unava ilable Encounter Details Date Type Department Care Team (Late st Contact Info) Description 04/06/2022 Lab Requisition [facility] Pathology & Laboratory Medicine - [facility] [address] [place] [address] Outr Resulting Lab, Provider Social History Tobacco [...] Salmonella PCR Negative Negative 04/06/2022 22:54 EST [facility] Shigella/Enteroin vasive E. coli Negative Negative 04/06/2022 22:54 EST [facility] HN LAB CAMPYLOBACTER PCR Negative Negative 04/06/2022 22:54 EST [facility] Shiga Toxin PCR Negative Negative 22:54 EST [facility] Feces SPECIMEN FROM RECTUM / Unknown 04/05/2022 10:41 EST 04/06/2022 18:31 EST us Provider Outr Resulting Lab MICROBIOLOGY - GENER AL ORDERABLES Final Result [facility] [address] [place] [address] documented in this encounter Visit Diagnoses Not on filedocumented in this encounter Care Teams Car Unloader Relationship Specialty Start Date End Date Unknown, Provider, PCP - General 01/13/14 documented as of this encounter
--- OUTSIDE RECORDS SUMMARY | 2024-04-18 12:28 | XMS_ITS | Encounter Summary ---
Author Organization [facility] Address [facility] [place] [address] Care Team Providers Care Mill Operator Name Role Phone Unavailable Primary Care Provider Unavailabl e Encounter Details Date Type Department Care Team (Latest Contact Info) Description 12/08/2008 - 12/08/2008 11:59 PM EDT Hospital Encounter Radiology Library at [facility] [place] [address] Jackie Cisneros APRN [facility] [place] [place] [address] Discharge Disposition: Home Social History Tobacco Use [...] Only Mammo (12/08/2008 12:00 AM EDT) Narrative [facility] - 02/23/2017 3:30 PM EDT This exam is for storage only and is auto-finalizing. Jackie Cisneros APRN IMG FILM LIBRARY ORD ERABLES NADINE Sethi documented in this encounter Visit Diagnoses Not on filedocumented in this encounter
--- OUTSIDE RECORDS SUMMARY | 2024-04-18 12:28 | XMS_ITS | Encounter Summary ---
Author Organization [facility] Address [facility] [place] [address] Care Team Providers Care Vice President [employer] Name Role Phone Ana Her MD Primary Care Provider [phone] Encounter Details Date Type Department Care Team (Latest Contact Info) Description 02/12/2017 - 02/12/2017 11:59 PM EDT Hospital Encounter Radiology Library at [facility] [place] [address] Maryam Yee MD [facility] [place] [address] Screening breast examination Discharge Disposition: Home Social [...] Only Mammo (02/12/2017 12:00 AM EDT) Narrative [facility] - 02/19/2017 1:47 PM EDT This exam is for storage only and is auto-finalizing. aMryam Yee MD IMG FILM LIBRARY O RDERABLES Performing Organization Address City/State/[facility] Co de Phone Number [place], [place] documented in this encounter Visit Diagnoses Diagnosis Screening breast examination Other screening breast examination documented in this encounter Care Teams Vice President [employer] Relationship Specialty Start Date End Date Ana Her MD [address] [place] [address] PCP - General 07/29/13 documented as of this encounter
--- OUTSIDE RECORDS SUMMARY | 2024-04-18 12:28 | XMS_ITS | Encounter Summary ---
Author Organization [facility] [place] [address] Care Team Providers Care Care Information Associate Name Role Phone Ana Her MD Primary Care Provider [phone] Encounter Details Date Type Department Care Team (Latest Contact Info) Description 02/17/2017 12:15 AM EDT - 02/17/2017 11:59 PM EDT Hospital Encounter Radiology Library at [facility] [place] [address] Maryam Yee MD [facility] [place] [address] Screening breast examination Discharge Disposition: Home Social [...] Only Mammo (02/17/2017 12:15 AM EDT) Narrative [facility] - 02/19/2017 2:01 PM EDT This exam is for storage only and is auto-finalizing. Maryam Yee MD IMG FILM LIBRARY O RDERABLES [place], [place] documented in this encounter Visit Diagnoses Diagnosis Screening breast examination Other screening breast examination documented in this encounter Care Teams Care Information Associate Relationship Specialty Start Date End Date Ana Her MD [address] [place] [address] PCP - General 07/29/13 documented as of this encounter
--- OUTSIDE RECORDS SUMMARY | 2024-04-18 12:28 | XMS_ITS | Encounter Summary ---
Author Organization [facility] Address [address] [place] [address] Care Team Providers Care Job Press Operator Name Role Phone Unknown, Provider Primary Care Provider Unava ilable Encounter Details Date Type Department Care Team (Late st Contact Info) Description 01/20/2020 Lab Requisition [facility] Pathology & Laboratory Medicine - [facility] [address] [place] [address] Outr Resulting Lab, Provider Social History Tobacco [...] rt-PCR Result NEGATIVE Negative 01/21/2020 16:10 EDT [facility] Comment: 2019-novel Coronavirus (2019-nCoV) not [...] in accordance with CLIA regulations, College of [place] [employer] (CAP) guidelines (Jul 21, 2019), and FDA guidance (Jul 02, 2019). This test is only for use under the Food and Drug Administration's Emergency Use Authorization. Swab ENTIRE NASOPHARYNX / Unknown 01/20/2020 10:30 EDT 01/20/2020 15:35 EDT us Provider Outr Resulting Lab MICROBIOLOGY - GENER AL ORDERABLES Final Result Performing Organization Address City/State/[facility] Co de Phone Number [facility] [place], [place] * COVID-19 TESTING (01/20/2020 10:30 EDT) COVID-19 rt-PCR Result NEGATIVE Negative 01/21/2020 17:21 EDT [facility] Comment: 2019-novel Coronavirus (2019-nCoV) not detected [...] in accordance with CLIA regulations, [employer] of [place] (CAP) guidelines (Jul 21, 2019), and FDA guidance (Jul 02, 2019). This test is only for use under the Food and Drug Administration's Emergency Use Authorization. Performing Lab [facility] 01/21/2020 17:21 EDT [facility] Swab 01/20/2020 10:3 0 EDT 01/20/2020 15:35 EDT us Provider Outr Resulting Lab MICROBIOLOGY - GENER AL ORDERABLES Final Result [facility] [address] [place] [address] [facility] [place] [place] documented in this encounter Visit Diagnoses Not on filedocumented in this encounter Care Teams Job Press Operator Relationship Specialty Start Date End Date Unknown, Provider, PCP - General 01/13/14 documented as of this encounter
--- OUTSIDE RECORDS SUMMARY | 2024-04-18 12:28 | XMS_ITS | Encounter Summary ---
[place] [address] Care Team Providers Care Corporate Event Planner Name Role Phone Ana Her MD Primary Care Provider [phone] Reason for Visit * Reason Comments Low Back Pain Bilateral Hip Pain when standing or wal jaquelin Encounter Details Date Type Department Care Team (Late st Contact Info) Description 09/12/2014 11:20 AM EDT Office [place] [phone] Kris Benoit MD [facility] [place] [address] Neurogenic claudication due to lumbar spinal stenosis [...] pain free. Lumbar MRI from 08/16/2014 from [facility] is notable for multilevel degenerative changes L2-L3, L3-L4, L4-L5, L5-S1. At L2-L3, she has [id number] spinal stenosis, but she has no leg [...] claudication documented in this encounter Care Teams Corporate Event Planner Relationship Specialty Start Date End Date Ana Her MD [facility] [address] [place] [address] PCP - General 07/29/13 documented as of this encounter
--- OUTSIDE RECORDS SUMMARY | 2024-04-18 12:28 | XMS_ITS | Encounter Summary ---
[facility] Address [facility] [place] [address] Care Team Providers Care Insurance Marketing Rep Name Role Phone Unavailable Primary Care Provider Unavailabl e Encounter Details Date Type Department Care Team (Latest Contact Info) Description 12/25/2010 - 12/25/2010 11:59 PM EDT Hospital Encounter Radiology Library at [facility] [place] [address] Jackie Cisneros APRN [facility] [place] [address] Discharge Disposition: Home Social History Tobacco Use [...] Only Mammo (12/25/2010 12:00 AM EDT) Narrative [facility] - 02/23/2017 3:27 PM EDT This exam is for storage only and is auto-finalizing. Jackie Cisneros APRN IMG FILM LIBRARY ORD ERABLES NADINE Sethi documented in this encounter Visit Diagnoses Not on filedocumented in this encounter
--- OUTSIDE RECORDS SUMMARY | 2024-04-18 12:28 | XMS_ITS | Encounter Summary ---
Author Organization [facility] Address [facility] [place] [address] Care Team Providers Care Perioperative Educator Name Role Phone Unavailable Primary Care Provider Unavailabl e Encounter Details Date Type Department Care Team (Latest Contact Info) Description 01/29/2013 - 01/29/2013 11:59 PM EDT Hospital Encounter Radiology Library at [facility] [place] [address] Jackie Cisneros APRN [facility] [place] [address] Discharge Disposition: Home Social History Tobacco Use [...] Only Mammo (01/29/2013 12:00 AM EDT) Narrative [facility] - 02/23/2017 3:26 PM EDT This exam is for storage only and is auto-finalizing. Jackie Cisneros APRN IMG FILM LIBRARY ORD ERABLES NADINE Sethi documented in this encounter Visit Diagnoses Not on filedocumented in this encounter
--- OUTSIDE RECORDS SUMMARY | 2024-04-18 12:28 | XMS_ITS | Patient Health Record ---
Author Organization [facility] Address [address] [place] [address] Care Team Providers Care Software Support Specialist Name Role Phone Non Compass, Provider Primary [...] Orally Twi ce daily as needed Active Plan Of Treatment No Information Insurance Providers Payer Name Payer Address Payer Phone Subscriber Number Group Number Insured Name Patient Relationship to Insured Coverage Start Date Coverage End Date Medicare [address] [place] [id number] Digna Olson Self - patient is the insured [facility] Medicare Plan [address] [place], [place] [id number] Digna Olson Self - patient is the insured Medical (General) History Medical History History ICD Code Atrial fibrillation Hypertension Hypothyroidism Non insulin-dependent diabetes
--- OUTSIDE RECORDS SUMMARY | 2024-04-18 12:28 | XMS_ITS | Encounter Summary ---
Author Organization [facility] Address [facility] [place] [address] Care Team Providers Care Wet Room Supervisor Name Role Phone Ana Her MD Primary Care Provider [phone] Encounter Details Date Type Department Care Team (Latest Contact Info) Description 10/28/2016 - 10/28/2016 11:59 PM EDT Hospital Encounter Radiology Library at [facility] [place] [address] Ricky Lowry MD [facility] HEMATOLOGY/[place] [address] Discharge Disposition: Home Social History Tobacco Use [...] DXA Images (10/28/2016 12:00 AM EDT) Narrative [facility] - 04/24/2017 2:13 PM EST This exam is for storage only and is auto-finalizing. Ricky Lowry MD IMG FILM LIBRARY ORD ERABLES [place], [place] documented in this encounter Visit Diagnoses Not on filedocumented in this encounter Care Teams Wet Room Supervisor Relationship Specialty Start Date End Date Ana Her MD [address] [place] [address] PCP - General 07/29/13 documented as of this encounter
--- OUTSIDE RECORDS SUMMARY | 2024-04-18 12:28 | XMS_ITS | Encounter Summary ---
Author Organization [facility] Address [address] [place] [address] Care Team Providers Care Terrazzo Mechanic Helper Name Role Phone Unknown, Provider MD Primary Care Provider Unava ilable Encounter Details Date Type Department Care Team (Late st Contact Info) Description 10/26/2022 Lab Requisition [facility] Pathology & Laboratory Medicine - [facility] [address] [place] [address] Outr Resulting Lab, Provider Social History Tobacco [...] Neg and Giardia Antigen Neg 13:48 EDT [facility] Feces SPECIMEN FROM RECTUM / Unknown 10/25/2022 15:00 EDT 10/26/2022 15:25 EDT us Provider Outr Resulting Lab MICROBIOLOGY - GENER AL ORDERABLES Final Result [facility] [address] [place] [address] * FECAL BACTERIAL PATHOGENS BY PCR (10/25/2022 15:00 EDT) Salmonella PCR Negative Negative 10/26/2022 19:17 EDT [facility] Shigella/Enteroin vasive E. coli Negative Negative 10/26/2022 19:17 EDT [facility] HN LAB CAMPYLOBACTER PCR Negative Negative 10/26/2022 19:17 EDT [facility] Shiga Toxin PCR Negative Negative 19:17 EDT [facility] Feces SPECIMEN FROM RECTUM / Unknown 10/25/2022 15:00 EDT 10/26/2022 15:25 EDT us Provider Outr Resulting Lab MICROBIOLOGY - GENER AL ORDERABLES Final Result Performing Organization Address [facility] Co de Phone Number [facility] [address] [place] [address] * OVA/PARASITE EXAM (10/25/2022 15:00 EDT) Parasite No ova and parasites seen. 10/28/2022 15:08 EDT [facility] Feces SPECIMEN FROM RECTUM / Unknown 10/25/2022 15:00 EDT 10/26/2022 15:25 EDT Narrative [facility] - 10/28/2022 15:08 EDT (If Cryptosporidium, Cyclospora, or Microsporidium are suspected, specific tests must be requested.) Single negative specimen does not rule out the possibility of a parasitic infection. us Provider Outr Resulting Lab MICROBIOLOGY - GENER AL ORDERABLES Final Result Performing Organization Address City/[facility]/ZIP Co de Phone Number [facility] [address] [place] [address] documented in this encounter Visit Diagnoses Not on filedocumented in this encounter Care Teams Terrazzo Mechanic Helper Relationship Specialty Start Date End Date Unknown, Provider, PCP - General 9/12/14 documented as of this encounter
--- OUTSIDE RECORDS SUMMARY | 2024-04-18 12:28 | XMS_ITS | Clinical Summary ---
Author Organization [facility] Address [address] [place] [address] Care Team Providers Care Grinder Needle Tip Name Role Phone Unknown, Provider MD Primary Care Provider Unava ilable Social History Tobacco Use Types Packs/Day Years Used Date Smoking Tobacco: Never Assessed Comments Unknown Sex and Gender Information Value Date Recorded Sex Assigned at Not on file Legal Sex Female 9:32 EDT Gender Identity Not on file Sexual Orientation Not on file Plan of Treatment Health Maintenance Due Date Last Done Comments Hepatitis C Screen 1945 Fall Risk Screening 2010 RSV Immunization ( o r 60+ Years) (1 - 1-dose 75+ series) 2020 COVID-19 Vaccine ( season) 2024 Care Teams Grinder Needle Tip Relationship Specialty Start Date End Date Unknown, Provider, PCP - General 01/13/14
--- OUTSIDE RECORDS SUMMARY | 2024-04-18 12:28 | XMS_ITS | Referral Summary ---
Author Organization [facility] Address [address] [place] [address] Care Team Providers Care Drapery Hanger Name Role Phone Unknown, Provider MD Primary Care Provider Unava ilable Social History Tobacco Use Types Packs/Day Years Used Date Smoking Tobacco: Never Assessed Comments Unknown Sex and Gender Information Value Date Recorded Sex Assigned at Not on file Legal Sex Female 9:32 EDT Gender Identity Not on file Sexual Orientation Not on file Plan of Treatment Not on file Care Teams Drapery Hanger Relationship Specialty Start Date End Date Unknown, Provider, PCP - General 01/13/14
--- OUTSIDE RECORDS SUMMARY | 2024-04-18 12:28 | XMS_ITS | Encounter Summary ---
Author Organization [facility] Address [facility] [place] [address] Care Team Providers Care Customs Compliance Manager Name Role Phone Unavailable Primary Care Provider Unavailabl e Encounter Details Date Type Department Care Team (Latest Contact Info) Description 12/19/2009 - 12/19/2009 11:59 PM EDT Hospital Encounter Radiology Library at [facility] [place] [address] Jackie Cisneros APRN [facility] [place] [address] [place] [address] Discharge Disposition: Home Social History Tobacco Use [...] [facility] - 02/23/2017 3:29 PM EDT This exam is for storage only and is auto-finalizing. Jackie Cisneros APRN IMG FILM LIBRARY ORD ERABLES NADINE Sethi documented in this encounter Visit Diagnoses Not on filedocumented in this encounter
--- OUTSIDE RECORDS SUMMARY | 2024-04-18 12:28 | XMS_ITS | Encounter Summary ---
Author Organization [facility] [place] [address] Care Team Providers Care Crew Boat Operator Name Role Phone Ana Her MD Primary Care Provider [phone] Encounter Details Date Type Department Care Team (Latest Contact Info) Description 02/25/2017 1:32 PM EDT - 02/25/2017 1:35 PM EDT Hospital [place] [phone] Maryam Yee MD [facility] [place] [address] Abnormal mammogram Discharge Disposition: Home Social History [...] PM EDT 02/25/2017 3:02 PM EDT Narrative [facility] - 02/25/2017 3:02 PM EDT Specimen requisition ordered. ??Separate Pathology report to follow Enzo Burkett MD PATHOLOGY/CYTOLOGY O SHANTAL [facility] [place] [address] documented in this encounter Visit Diagnoses Diagnosis [...] mg documented in this encounter Care Teams Crew Boat Operator Relationship Specialty Start Date End Date Ana Her MD [address] [place] [address] PCP - General 07/29/13 documented as of this encounter
--- OUTSIDE RECORDS SUMMARY | 2024-04-18 12:28 | XMS_ITS | Encounter Summary ---
Author Organization [facility] Address [facility] [place] [address] Care Team Providers Care Felting Machine Operator Helper Name Role Phone Ana Her MD Primary Care Provider [phone] Encounter Details Date Type Department Care Team (Latest Contact Info) Description 02/23/2017 3:50 PM EDT - 02/23/2017 11:59 PM EDT Hospital Encounter Radiology Library at [facility] [place] [phone] Jackie Cisneros APRN [address] [place] [address] Left breast mass Discharge Disposition: Home Social [...] recommended. Please note: The interpretation of the [facility] Breast Imaging Radiologist subspecialist may differ from the original radiologists interpretation. This is usually not due to a deficiency of the original interpreting radiologist, rather due to the greater skill level afforded by sub-specialization in the field and/or reasonable variations in interpretations. If you have a concern regarding the [facility] interpretation you may contact the [facility] Breast Charge Hand Office at . I have personally reviewed [...] recommended. Please note: The interpretation of the [facility] BreastImaging Radiologist subspecialist may differ from the original radiologists interpretation. This is usually not due to a deficiency of the original interpreting radiologist, rather due to the greater skill level affordedby sub-specialization in the field and/or reasonable variations ininterpretations. If you have a concern regarding the [facility] interpretation you may contact [facility] Breast Charge Hand Office at . I have personally reviewed the image(s) and the residents interpretationand agree with the findings, ROBERT THOMPSON at 02/24/2017 8:41 AM 8:41 AM Jackie Cisneros [facility] IMG OUTSIDE INTERPRE TATION ORDERABLES documented in this encounter Visit Diagnoses Diagnosis Left breast mass Lump or mass in breast documented in this encounter Care Teams Felting Machine Operator Helper Relationship Specialty Start Date End Date Ana Her MD [address] [place] [address] PCP - General 07/29/13 documented as of this encounter
--- OUTSIDE RECORDS SUMMARY | 2024-04-18 12:28 | XMS_ITS | Encounter Summary ---
[place] [address] Care Team Providers Care Commissioned Police Officer Name Role Phone Ana Her MD Primary Care Provider [phone] Encounter Details Date Type Department Care Team (Late st Contact Info) Description 07/26/2013 [place] [address] Ana Her MD [facility] [address] [place] [address] Social History Tobacco Use Types Packs/Day Years [...] is a Non-reportable exam Ana Her MD [facility] FILM LIBRARY ORD ERABLES documented in this encounter Visit Diagnoses Not on filedocumented in this encounter Care Teams Commissioned Police Officer Relationship Specialty Start Date End Date Ana Her MD [address] [place] [address] PCP - General 07/29/13 documented as of this encounter
--- OUTSIDE RECORDS SUMMARY | 2024-04-18 12:28 | XMS_ITS | Encounter Summary ---
Author Organization [facility] Address [facility] [place] [address] Care Team Providers Care Director Of Business Services Name Role Phone Unavailable Primary Care Provider Unavailabl e Encounter Details Date Type Department Care Team (Latest Contact Info) Description 04/04/2005 - 04/04/2005 11:59 PM EST Hospital Encounter Radiology Library [place] [facility] [place] [address] Jackie Cisneros APRN [facility] [place] [address] Discharge Disposition: Home Social History Tobacco Use [...] Only Mammo (04/04/2005 12:00 AM EST) Narrative RAD - 02/23/2017 3:32 PM EDT This exam is for storage only and is auto-finalizing. Jackie Cisneros APRN IMG FILM LIBRARY ORD ERABLES DH NADINE Sethi documented in this encounter Visit Diagnoses Not on filedocumented in this encounter
--- OUTSIDE RECORDS SUMMARY | 2024-04-18 12:28 | XMS_ITS | Encounter Summary ---
[place] [address] Care Team Providers Care Waste Chopper Name Role Phone Ana Her MD Primary Care Provider [phone] Reason for Visit * Reason Onset Date Comments Referral 07/29/2013 Encounter Details Date Type Department Care Team (Late st Contact Info) Description 07/29/2013 [place] [phone] Sophia Palacios Referral Social History Tobacco Use [...] on filedocumented in this encounter Care Teams Waste Chopper Relationship Specialty Start Date End Date Ana Her MD [address] [facility] [address] [place] [address] PCP - General 07/29/13 documented as of this encounter
--- OUTSIDE RECORDS SUMMARY | 2024-04-18 12:28 | XMS_ITS | Encounter Summary ---
Author Organization [facility] Address [address] [place] [address] Care Team Providers Care Card Assembler Name Role Phone Unavailable Primary Care Provider Unavailabl e Encounter Details Date Type Department Care Team (Latest Contact Info) Description 01/10/2014 20:50 EDT - 01/10/2014 23:59 EDT Hospital Encounter [facility] [address] [place] [address] Unknown, Provider, MD Discharge Disposition: Home or Self Care Social [...] Code Departure Means Destination Home or Self Correction documented in this encounter Plan of Treatment Not on file documented as of this encounter Visit Diagnoses Not on filedocumented in this encounter
--- OUTSIDE RECORDS SUMMARY | 2024-04-18 12:28 | XMS_ITS | Encounter Summary ---
Author Organization [facility] Address [facility] [place] [address] Care Team Providers Care Chemical Laboratory Chief Name Role Phone Unavailable Primary Care Provider Unavailabl e Encounter Details Date Type Department Care Team (Latest Contact Info) Description 11/12/2007 - 11/12/2007 11:59 PM EDT Hospital Encounter Radiology Library at [facility] [place] [address] Jackie Cisneros APRN [facility] [place] [address] Discharge Disposition: Home Social History Tobacco Use [...] (11/12/2007 12:00 AM EDT) Narrative [facility] - 02/23/2017 3:31 PM EDT This exam is for storage only and is auto-finalizing. Jackie Cisneros APRN IMG FILM LIBRARY ORD ERABLES NADINE Sethi documented in this encounter Visit Diagnoses Not on filedocumented in this encounter
--- OUTSIDE RECORDS SUMMARY | 2024-04-18 12:28 | XMS_ITS | Encounter Summary ---
Author Organization [facility] Address [address] [place] [address] Care Team Providers Care Shot Packer Name Role Phone Unknown, Provider MD Primary Care Provider Unava ilable Encounter Details Date Type Department Care Team (Late st Contact Info) Description 08/12/2021 Lab Requisition [facility] Pathology & Laboratory Medicine - [facility] [address] [place] [address] Outr Resulting Lab, Provider Social History Tobacco [...] Priority Date/Time Associated Diagnosis Comments ZZCOVID-19 TEST [facility] PCR Today 08/12/2021 15:00 EDT COVID-19 TESTING Routine 08/12/2021 15:0 0 EDT documented in this encounter Results * [facility] (08/12/2021 15:00 EDT) Swab 08/12/2021 15:0 0 EDT 08/13/2021 16:56 EDT us Provider Outr Resulting Lab MICROBIOLOGY - GENER AL ORDERABLES Final Result [facility] [address] [place] [address] * COVID-19 TESTING (08/12/2021 15:00 EDT) COVID-19 rt-PCR Result Negative Negative 08/14/2021 11:53 EDT [facility] Comment: This test [...] was performed using the palomo SARS-CoV-2 assay ([employer] on the Palomo 6800 System Performing Lab Palomo 68[address] [facility] 08/14/2021 11:53 EDT [facility] Swab 08/12/2021 15:0 0 EDT 08/13/2021 16:56 EDT us Provider Outr Resulting Lab MICROBIOLOGY - GENER AL ORDERABLES Final Result [facility] [address] [place] [address] documented in this encounter Visit Diagnoses Not on filedocumented in this encounter Care Teams Shot Packer Relationship Specialty Start Date End Date Unknown, Provider, PCP - General 01/13/14 documented as of this encounter
--- OUTSIDE RECORDS SUMMARY | 2024-04-18 12:28 | XMS_ITS | Encounter Summary ---
Author Organization [facility] Address [address] [place] [address] Care Team Providers Care Loading Manager Name Role Phone Unknown, Provider MD Primary Care Provider Unava ilable Encounter Details Date Type Department Care Team (Late st Contact Info) Description 11/19/2023 Lab Requisition [facility] Pathology & Laboratory Medicine - [facility] [address] [place], [place] [address] Outr Resulting Lab, Provider Social History Tobacco [...] 201 - 352 mg/dL 11/20/2023 9:45 EDT [facility] Blood VENOUS BLOOD / Unknown 11/19/2023 6:05 EDT 11/19/2023 17:32 EDT us Provider Outr Resulting Lab CHEMISTRY & BLOOD GA S ORDERABLES Final Result [facility] [address] [place], [place] [address] documented in this encounter Visit Diagnoses Not on filedocumented in this encounter Care Teams Loading Manager Relationship Specialty Start Date End Date Unknown, Provider, PCP - General 01/13/14 documented as of this encounter
--- OUTSIDE RECORDS SUMMARY | 2024-04-18 12:28 | XMS_ITS | Encounter Summary ---
Author Organization [facility] Address [facility] [place] [address] Care Team Providers Care Electronic Warfare Technical Name Role Phone Ana Her MD Primary Care Provider [phone] Encounter Details Date Type Department Care Team (Late st Contact Info) Description 09/13/2015 Interpretation Only Radiology [address] [place] [address] Unknown None Social History Tobacco Use Types [...] 6:56 AM EDT APD Historical Result Principal Collections Analyst: ??MAE ??ESCHBACH IMAGE-INTENSIFIER FILMS: INDICATION: ??Right L4 foraminotomy. FINDINGS: A total of 5.8 seconds of fluoro time was utilized by Geraldine Claros MD. ??Estimated dose is 5.96 mGy. ??Two image-intensifier films record the event. ??They show the lumbosacral junction in the lateral projection with a surgical instrument indicating the level of L4. ??No Radiologist was present for this exam. Mae Shelley DO TOBIN/mn [id number] Procedure Note Unknown - 11/01/2018 APD Historical Result Principal Collections Analyst: MAE SHELLEY IMAGE-INTENSIFIER FILMS: INDICATION: Right L4 foraminotomy. FINDINGS: A total of 5.8 seconds of fluoro time was utilized by Geraldine Claros MD. Estimated dose is 5.96 mGy. Two image-intensifier films record the event. They show thelumbosacral junction in the lateral projection with a surgical instrument indicating the level of L4.No Radiologist was present for this exam. Mae Shelley DO TOBIN/mn [id number] Unknown IMG FLUORO ORDERABLE S documented in this encounter Visit Diagnoses Not on filedocumented in this encounter Care Teams Electronic Warfare Technical Relationship Specialty Start Date End Date Ana Her MD [address] [place] [address] PCP - General 07/29/13 documented as of this encounter
--- OUTSIDE RECORDS SUMMARY | 2024-04-18 12:28 | XMS_ITS | Encounter Summary ---
Author Organization [facility] [place] [address] Care Team Providers Care Contract Clerk Name Role Phone Ana Her MD Primary Care Provider [phone] Encounter Details Date Type Department Care Team (Late st Contact Info) Description 08/16/2014 Orders Only Functional Buddhism Program at [facility] [address] [place] [address] Khari Martínez MD [facility] [place] [address] Social History Tobacco Use Types Packs/Day Years [...] is a Non-reportable exam Khari Martínez MD [facility] FILM LIBRARY ORD ERABLES documented in this encounter Visit Diagnoses Not on filedocumented in this encounter Care Teams Contract Clerk Relationship Specialty Start Date End Date Ana Her MD [facility] [address] [place] [address] PCP - General 07/29/13 documented as of this encounter
--- OUTSIDE RECORDS SUMMARY | 2024-04-18 12:28 | XMS_ITS | Encounter Summary ---
Author Organization [facility] Address [facility] [place] [address] Care Team Providers Care Marketing Program Coordinator Name Role Phone Ana Her MD Primary Care Provider [phone] Encounter Details Date Type Department Care Team (Latest Contact Info) Description 04/24/2014 - 04/24/2014 11:59 PM EST Hospital Encounter Radiology Library at [facility] [place] [id number] Maryam Yee MD [facility] [place] [address] Screening breast examination Discharge Disposition: Home Social [...] Only Mammo (04/24/2014 12:00 AM EST) Narrative [facility] - 02/19/2017 1:46 PM EDT This exam is for storage only and is auto-finalizing. Maryam Yee MD IMG FILM LIBRARY O RDERABLES [place], [place] documented in this encounter Visit Diagnoses Diagnosis Screening breast examination Other screening breast examination documented in this encounter Care Teams Marketing Program Coordinator Relationship Specialty Start Date End Date Ana Her MD [address] [facility] [address] [place] [address] PCP - General 07/29/13 documented as of this encounter
[2024-04-18 15:02] LABS: MCH 32.4 pg (27.0-33.0); MCHC 31.6 % (32.0-36.0); MCV 103 fL (80-95); MPV 11.2 fL (8.0-11.0); Platelet Count 124 10^3/uL (130-400); RDW 15.6 % (11.7-14.6); RDW-SD 59.4 fL; WBC 6.58 10^3/uL (4.4-10.8)
[2024-04-18 15:45] LABS: Iron 65 ug/dL (50-170); Total Iron Binding Capacity 318 ug/dL (250-450); Transferrin Sat 20 % (15-50)
[2024-04-18 16:00] LABS: Anion Gap 6.6 mmol/L (3-11); BUN 21 mg/dL (7-18); CO2 31.4 mmol/L (21.0-32.0); Calcium 9.4 mg/dL (8.5-10.1); Chloride 107 mmol/L (98-107); Estimated GFR 57.66 (mL/min/1.73m2); Ferritin 211 ng/mL (8-252); Glucose 103 mg/dL (74-106); Potassium 4.2 mmol/L (3.5-5.1); Sodium 145 mmol/L (136-145); TSH (W/Ref FT4) 2.17 uIU/mL (0.36-3.74); Vitamin D 25 Total 63.9 ng/mL (30-100)
[2024-04-18 16:15] LABS: Hemoglobin A1C 5.4 % (<5.7)
== END 2024-04-18 12:23 | disposition home or self-care (01) ==
LOC: NCHCN 12:22
PROVIDERS: PCP Family Medicine; Visit Provider Family Medicine
DX: D50.9 Iron deficiency anemia, unspecified (principal); R73.03 Prediabetes; M80.00XD Age-related osteoporosis with current pathological fracture, unspecified site, subsequent encounter for fracture with routine healing; E03.9 Hypothyroidism, unspecified; N18.9 Chronic kidney disease, unspecified
CPT/HCPCS: 80048; 82306; 85027; 82728; 83036; 83540; 83550; 84443

== ENCOUNTER 2024-05-02 09:37 | Outpatient (RCR) | payer MEDICARE, BC, SELFPAY ==
--- NOTE | 2024-04-22 11:00 | RT.EKG_ITS ---
APPROVED REPORT Exam: Resting ECG Reason for Exam: CR Intake Appointment - Baseline EKG Patient Location: O HR:96 bpm ECG Measurements Heart Rate 96 AXIS MI [id number] P [id number] QRSd 144 QRS -78 QT 406 T 47 QTc 514 Conclusion Atrial fibrillation...? atrial activity RBBB and LAFB...QRSd >120mS, axis(-40,240)
--- OUTSIDE RECORDS SUMMARY | 2024-04-22 11:11 | XMS_ITS | Encounter Summary ---
[place] [address] Care Team Providers Care Entry Level Recruiter Name Role Phone Ana Her MD Primary Care Provider [phone] Encounter Details Date Type Department Care Team (Late st Contact Info) Description 02/03/2023 Telephone Hematology [place] [phone] Maryam Barrett Social History Tobacco Use Types [...] on filedocumented in this encounter Care Teams Entry Level Recruiter Relationship Specialty Start Date End Date Ana Her MD [address] [place] [address] PCP - General 07/29/13 documented as of this encounter
--- OUTSIDE RECORDS SUMMARY | 2024-04-22 11:11 | XMS_ITS | Clinical Summary ---
Author Organization [facility] [place] [address] Care Team Providers Care Chief Wheelage Clerk Name Role Phone Ana Her MD Primary Care Provider [phone] Allergies No known active allergies Medications Medication [...] the eliquis and has been managed by [facility]. She has remained in [place] over [...] and ECG with Dr. Ana Her in [place] in January She will discuss ECHO results [...] - TT3 and FT4 nl - My URBAN DESIGNER colleague called and spoke with covering MD [...] history exists Medical Devices Implanted Type Area Glove Brusher Device Identifier Shelf Expiration Date Model / Serial / Lot Breast Clip-02/26/20 17 Implanted: by Enzo Burkett MD (Quantity not on file) Breast Clip Left: Breast Bard - 0614 05/04/2019 [employer] ULTRACOR BREAST TISSUE MARKER ULTRASOUND ENHANCED [place]ANCA / / [id number] Description:BLANCA Procedures Procedure Name Priority Date/Time Associated [...] Osteopenia of neck of femur, unspecified laterality shelter current 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 from Last [...] who have questions please contact the health patient care technician instructor that requested your imaging first. ? Electronically signed by: Digna Noel MD, [facility] ([phone]), at 06/11/2021 9:20 AM Jeanine Lobato MECHANISM ASSEMBLER IMG MAMMO ORD ERABLES * DXA Central [...] BMD measurements and plots are available in [employer] under the imaging tab. Paper copies will be sent to providers without E-[employer] access. If you have received this report without the data sheet and do not have access to [employer], please contact Radiology Hearing And Speech Assistant at [phone] Thursday thru Thursday 8am-4pm. Thank you for letting us participate in the care of this patient. ??If you are a health care provider and have any questions regarding this report, please contact the number below. ??For patients who have questions please contact the health patient care technician instructor that requested your imaging first. ? Electronically signed by: Nat Epperson MD, [facility] ([phone]), at 11/19/2020 1:09 PM Narrative 11/19/2020 1:09 [...] BMD measurements and plots are available in [employer]under the imaging tab. Paper copies will be sent to providers without E- access.If you have received this report without the data sheet and do not haveaccess to E-, please contact Radiology Hearing And Speech Assistant at [phone] Thursday thrrid 8am-4pm. Thank you for letting us participate in the care of this patient. If youare a health care provider and have any questions regarding this report,please contact the number below. For patients who have questions please contactthe health patient care technician instructor that requested your imaging first. Ricky Lowry [...] Status decision made by: Patient Care Teams Chief Wheelage Clerk Relationship Specialty Start Date End Date Ana Her MD [facility] [address] [place] [address] [facility] - General 07/29/13
--- OUTSIDE RECORDS SUMMARY | 2024-04-22 11:11 | XMS_ITS | Data Portability ---
Author Organization [place] - [facility], [facility] Address [facility] [place] [address] Care Team Providers Care Inspector Open Die Name Role Phone GABINODC Viscose Cellar Charge Hand [facility] Orthopedic Surgeon [facility] Sleep Medicine [facility] Donation Specialist Assessment Encounter Date Assessment Date Assessment LastModified by Organization Details LastModified Time 10/14/2023 10/14/2023 Patient presents for pre-op evaluation. The patient is a suitable candidate for the planned procedure. Their chronic medical problems are optimized Further preoperative evaluation is not needed. BMP and CBC are drawn today. The total time devoted to today's encounter, including both the ytlp-lc-wdgf time with the patient and/or family/caregive r and svg-lvrx-wo-fac e time I personally spent is 30 minutes. Not available 10/14/2023 11:57:30 12/02/2023 12/02/2023 The total time devoted to today's encounter, including both the nttp-uo-pdep time with the patient and/or family/caregive r and pdd-ryry-gf-fac e time I personally spent is 35 minutes. Not available 12/02/2023 14:47:23 03/04/2024 03/04/2024 The total time devoted to today's encounter, including both the bvwy-ed-lepv time with the patient and/or family/caregive r and tza-oklr-tm-fac e time I personally spent is 44 minutes. Not available 03/04/2024 17:47:18 Plan of Treatment Reminders Order Date Submit Date Provider Last Modified By Organization Details Last Modified Time Details Appointments Follow Up 20 2024 10:00A M Erich Her Not available Not available Not available Lab CBC [address] [facility] (Registration ), [address] [place] [address] [place], [address], 10/14/2023 15:11:07 BMP, serum or plasma [address] [facility] (Registration ), [address] [place] [address] [place], [address], 10/14/2023 17:41:37 BMP, serum or plasma 2023 024 [facility] (Registration ), [address] [place] [address] [place], [address], 12/30/2023 08:56:49 magnesium , serum or plasma 2023 024 [facility] (Registration ), [address] [place] [address] [place], [address], 12/09/2023 07:38:05 BNP (B-type natriuret ic peptide), serum or plasma [address] [facility] (Registration ), [address] [place] [address] [place], [address], 12/03/2023 20:48:47 CBC [address] [facility] (Registration ), [address] [place] [address] [place], [address], 12/02/2023 16:35:23 BMP, serum or plasma [address] [facility] (Registration ), [address] [place] [address] [place], [address], 04/19/2024 11:42:49 vitamin D, 25-hydrox y, total, serum [address] [facility] (Registration ), [address] [place] [address] [place], [address], 04/18/2024 16:09:19 HbA1c (hemoglob in A1c), blood [address] [facility] (Registration ), [address] [place] [address] [place], [address], 04/19/2024 11:39:49 TSH, serum, reflex free T4 [address] [facility] (Registration ), [address] [place] [address] [place], [address], 04/19/2024 11:40:25 CBC [address] [facility] (Registration ), [address] [place] [address] [place], [address], 04/18/2024 15:08:25 ferritin, serum or plasma [address] [facility] (Registration ), [address] [place] [address] [place], [address], 04/19/2024 11:41:22 iron + total iron-bind ing capacity (TIBC), serum [address] [facility] (Registration ), [address] [place] [address] [place], [address], 04/19/2024 11:43:17 BMP, serum or plasma [address] [facility] (Registration ), [address] [place] [address] [place], [address], 04/19/2024 11:42:49 vitamin D, 25-hydrox y, total, serum [address] [facility] (Registration ), [address] [place] [address] [place], [address], 04/18/2024 16:09:19 HbA1c (hemoglob in A1c), blood [address] [facility] (Registration ), [address] [place] [address] [place], [address], 04/19/2024 11:39:49 TSH, serum, reflex free T4 [address] [facility] (Registration ), [address] [place] [address] [place], [address], 04/19/2024 11:40:25 CBC [address] [facility] (Registration ), [address] [place] [address] [place], [address], 04/18/2024 15:08:25 ferritin, serum or plasma [address] [facility] (Registration ), [address] [place] [address] [place], [address], 04/19/2024 11:41:22 iron + total iron-bind ing capacity (TIBC), serum [address] [facility] (Registration ), [address] [place] [address] [place], [address], 04/19/2024 11:43:17 Referral None recorded. Procedures None recorded. Surgeries None recorded. Imaging electroca rdiogram 2023 024 [facility], [address], [place], [address], 10/14/2023 11:56:21 Medication Orders tramadol 50 mg tablet 2023 024 [facility], [address] [facility], [place], [address], 02/19/2024 13:12:28 furosemid e 80 mg tablet 2023 024 [facility] [address] [place] [address], [address], [place], [address], 03/04/2024 14:49:38 spironola ctone 25 mg tablet [email or web address] [facility], [address] [place] [address], [facility] [address], [address], 12/02/2023 12:50:28 lisinopri l 5 mg tablet 2023 [facility] [address] [place] [address], [facility] [place], [address], 02/19/2024 13:19:32 carvedilo l 25 mg tablet 2023 [facility] [address] [place] [address], [address], [place], [address], 02/19/2024 13:19:26 hydromorp ricky 2 mg tablet 2023 024 [facility], [address] [place], [address], 03/04/2024 15:12:30 levothyro xine 75 mcg tablet [address] [facility], [address] [place], [address], 03/04/2024 16:32:19 Patient TargetsNo targets recorded. Patient InstructionsNo instructions recorded. 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 None Reported. Results Created Date Observation Date Name Description Value Unit Range Abnormal Flag Note LastModifiedBy Organization Detail LastModifiedTime 10/14/19 24 10/14/2023 COMPL ETE BLOOD COUNT NO DIFF WBC 8.22 10_3/ uL 4.4-10 .8 normal Not Available [facility] [address] [place], [address] 10/14/2023 15:11:07 10/14/19 24 10/14/2023 COMPL ETE BLOOD COUNT NO DIFF RBC 3.22 10_6/ uL 3.93-5 .22 low Not Available [address] [place], [address] 10/14/2023 15:11:07 10/14/19 24 10/14/2023 COMPL ETE BLOOD COUNT NO DIFF HGB 10.9 g/dL 11.2-1 5.7 low Not Available [address] [place], [address] 10/14/2023 15:11:07 10/14/19 24 10/14/2023 COMPL ETE BLOOD COUNT NO DIFF HCT 32.5 % 36.0-4 6.0 low Not Available [address] [place], [address] 10/14/2023 15:11:07 10/14/19 24 10/14/2023 COMPL ETE BLOOD COUNT NO DIFF MCV 101 fL 80-95 high Not Available [address] [place], [address] 10/14/2023 15:11:07 10/14/19 24 10/14/2023 COMPL ETE BLOOD COUNT NO DIFF MCH 33.9 pg 27.0-3 3.0 high Not Available [address] [place], [address] 10/14/2023 15:11:07 10/14/19 24 10/14/2023 COMPL ETE BLOOD COUNT NO DIFF MCHC 33.5 % 32.0-3 6.0 normal Not Available [address] [place], [address] 10/14/2023 15:11:07 10/14/19 24 10/14/2023 COMPL ETE BLOOD COUNT NO DIFF RDW 13.9 % 11.7-1 4.6 normal Not Available [address] [place], [address] 10/14/2023 15:11:07 10/14/19 24 10/14/2023 COMPL ETE BLOOD COUNT NO DIFF platelet count 133 10_3/ uL 130-40 0 normal Not Available [address] [place], [address] 10/14/2023 15:11:07 10/14/19 24 10/14/2023 COMPL ETE BLOOD COUNT NO DIFF MPV 12.8 fL 8.0-11 .0 high Not Available [address] [place], [address] 10/14/2023 15:11:07 10/14/19 24 10/14/2023 BASIC METAB OLIC PANEL calcium 9.3 mg/dL 8.5-10 .1 normal Not Available [facility] (Registration ) [address] [place] [address] [place], [address], 10/14/2023 15:19:07 10/14/19 24 10/14/2023 BASIC METAB OLIC PANEL glucose 105 mg/dL 74-106 normal Not Available [facility] (Registration ) [address] [place] [address] [place], [address], 10/14/2023 15:19:07 10/14/19 24 10/14/2023 BASIC METAB OLIC PANEL BUN 49 mg/dL 7-18 high Not Available [facility] (Registration ) [address] [place] [address] [place], [address], 10/14/2023 15:19:07 10/14/19 24 10/14/2023 BASIC METAB OLIC PANEL creatinine 1.9 mg/dL 0.55-1 .02 high Not Available [facility] (Registration ) [address] [place] [address] [place], [address], 10/14/2023 15:19:07 10/14/19 24 10/14/2023 BASIC METAB [...] young er-ag ed adult s. Not Available [facility] (Registration ) [address] [place] [address] [place], [address], 10/14/2023 15:19:07 10/14/19 24 10/14/2023 BASIC METAB OLIC PANEL sodium 137 mmol/ L 136-14 5 normal Not Available [facility] (Registration ) [address] [place] [address] [place], [address], 10/14/2023 15:19:07 10/14/19 24 10/14/2023 BASIC METAB OLIC PANEL potassium 5.1 mmol/ L 3.5-5. 1 normal Not Available [facility] (Registration ) [address] [place] [address] [place], [address], 10/14/2023 15:19:07 10/14/19 24 10/14/2023 BASIC METAB OLIC PANEL chloride 104 mmol/ L 98-107 normal Not Available [facility] (Registration ) [address] [place] [address] [place], [address], 10/14/2023 15:19:07 10/14/19 24 10/14/2023 BASIC METAB OLIC PANEL CO2 20.3 mmol/ L 21.0-3 2.0 low Not Available [facility] (Registration ) [address] [place] [address] [place], [address], 10/14/2023 15:19:07 10/14/19 24 10/14/2023 BASIC METAB OLIC PANEL anion gap 12.7 mmol/ L 3-11 high Not Available [facility] (Registration ) [address] [place] [address] [place], [address], 10/14/2023 15:19:07 11/18/19 24 11/18/2023 LACTA TE lactate 1.0 mmol/ L 0.6-1. 4 normal Not Available [address] [place], [address] 11/18/2023 15:53:33 11/18/19 24 11/18/2023 COMPL ETE BLOOD COUNT W/DIF F WBC 8.69 10_3/ uL 4.4-10 .8 normal Not Available [address] [place], [address] 11/18/2023 15:57:13 11/18/19 24 11/18/2023 COMPL ETE BLOOD COUNT W/DIF F RBC 3.16 10_6/ uL 3.93-5 .22 low Not Available [address] [place], [address] 11/18/2023 15:57:13 11/18/19 24 11/18/2023 COMPL ETE BLOOD COUNT W/DIF F HGB 10.7 g/dL 11.2-1 5.7 low Not Available [address] [place], [address] 11/18/2023 15:57:13 11/18/19 24 11/18/2023 COMPL ETE BLOOD COUNT W/DIF F HCT 33.0 % 36.0-4 6.0 low Not Available [address] [place], [address] 11/18/2023 15:57:13 11/18/19 24 11/18/2023 COMPL ETE BLOOD COUNT W/DIF F MCV 104 fL 80-95 high Not Available [address] [place], [address] 11/18/2023 15:57:13 11/18/19 24 11/18/2023 COMPL ETE BLOOD COUNT W/DIF F MCH 33.9 pg 27.0-3 3.0 high Not Available [address] [place], [address] 11/18/2023 15:57:13 11/18/19 24 11/18/2023 COMPL ETE BLOOD COUNT W/DIF F MCHC 32.4 % 32.0-3 6.0 normal Not Available [address] [place], [address] 11/18/2023 15:57:13 11/18/19 24 11/18/2023 COMPL ETE BLOOD COUNT W/DIF F RDW 14.6 % 11.7-1 4.6 normal Not Available [address] [place], [address] 11/18/2023 15:57:13 11/18/19 24 11/18/2023 COMPL ETE BLOOD COUNT W/DIF F platelet count 134 10_3/ uL 130-40 0 normal Not Available [address] [place], [address] 11/18/2023 15:57:13 11/18/19 24 11/18/2023 COMPL ETE BLOOD COUNT W/DIF F MPV 11.2 fL 8.0-11 .0 high Not Available [address] [place], [address] 11/18/2023 15:57:13 11/18/19 24 11/18/2023 COMPL ETE BLOOD COUNT W/DIF F neutrophils % 74.8 % Not Available [address] [place], [address] 11/18/2023 15:57:13 11/18/19 24 11/18/2023 COMPL ETE BLOOD COUNT W/DIF F lymphocytes % 13.2 % Not Available [address] [place], [address] 11/18/2023 15:57:13 11/18/19 24 11/18/2023 COMPL ETE BLOOD COUNT W/DIF F monocytes % 5.9 % Not Available [address] [place], [address] 11/18/2023 15:57:13 11/18/19 24 11/18/2023 COMPL ETE BLOOD COUNT W/DIF F eosinophils % 5.2 % Not Available [address] [place], [address] 11/18/2023 15:57:13 11/18/19 24 11/18/2023 COMPL ETE BLOOD COUNT W/DIF F basophils % 0.6 % Not Available [address] [place], [address] 11/18/2023 15:57:13 11/18/19 24 11/18/2023 COMPL ETE BLOOD COUNT W/DIF F immature grans % 0.3 % Not Available Ariela avitia [address] [place], [address] 11/18/2023 15:57:13 11/18/19 24 11/18/2023 COMPL ETE BLOOD COUNT W/DIF F nucleated RBC 0.0 % 0.0-0. 3 normal Not Available [address] [place], [address] 11/18/2023 15:57:13 11/18/19 24 11/18/2023 COMPL ETE BLOOD COUNT W/DIF F absolute neutrophil count 6.50 10_3/ uL 1.2-6. 7 normal Not Available [address] [place], [address] 11/18/2023 15:57:13 11/18/19 24 11/18/2023 COMPL ETE BLOOD COUNT W/DIF F absolute lymphocyte count 1.15 10_3/ uL 1.2-3. 4 low Not Available [address] [place], [address] 11/18/2023 15:57:13 11/18/19 24 11/18/2023 COMPL ETE BLOOD COUNT W/DIF F absolute monocyte count 0.51 10_3/ uL 0.1-0. 8 normal Not Available [address] [place], [address] 11/18/2023 15:57:13 11/18/19 24 11/18/2023 COMPL ETE BLOOD COUNT W/DIF F absolute eosinophil count 0.45 10_3/ uL 0.0-0. 7 normal Not Available [address] [place], [address] 11/18/2023 15:57:13 11/18/19 24 11/18/2023 COMPL ETE BLOOD COUNT W/DIF F absolute basophil count 0.05 10_3/ uL 0.0-0. 2 normal Not Available [address] [place], [address] 11/18/2023 15:57:13 11/18/19 24 11/18/2023 PROTH ROMBI N TIME prothrombin time 10.5 sec 9.1-11 .1 normal Not Available [address] [place], [address] 11/18/2023 16:14:17 11/18/19 24 11/18/2023 PROTH ROMBI N TIME INR 1.0 0.9-1. 1 normal Recom noel d INR thera peuti c range s for orall y admin ister ed drugs are as follo ws: -Jair dard Inten sity 2.0 to 3.0 -High er Inten sity 3.0 to 4.5 Not Available [address] [place], [address] 11/18/2023 16:14:17 11/18/19 24 11/18/2023 PTT ACTIV ATED PTT activated 19.6 sec 23.6-3 2.8 low Hepar in Thera peuti c Range for PTT = 52-84 secon ds New Hepar in Thera peuti c Range 06/09 Not Available [address] [place], [address] 11/18/2023 16:14:18 11/18/19 24 11/18/2023 COMPR EHENS NADEEM METAB OLIC PANEL calcium 9.0 mg/dL 8.5-10 .1 normal Not Available [address] [place], [address] 11/18/2023 16:19:21 11/18/19 24 11/18/2023 COMPR EHENS NADEEM METAB OLIC PANEL glucose 100 mg/dL 74-106 normal Not Available Ethel green [address] [place], [address] 11/18/2023 16:19:21 11/18/19 24 11/18/2023 COMPR EHENS NADEEM METAB OLIC PANEL BUN 15 mg/dL 7-18 normal Not Available Ethel green [address] [place], [address] 11/18/2023 16:19:21 11/18/19 24 11/18/2023 COMPR EHENS NADEEM METAB OLIC PANEL creatinine 1.0 mg/dL 0.55-1 .02 normal Not Available [address] [place], [address] 11/18/2023 16:19:21 11/18/19 24 11/18/2023 COMPR EHENS [...] young er-ag ed adult s. Not Available [address] [place], [address] 11/18/2023 16:19:21 11/18/19 24 11/18/2023 COMPR EHENS NADEEM METAB OLIC PANEL total protein 6.8 g/dL 6.4-8. 2 normal Not Available [address] [place], [address] 11/18/2023 16:19:21 11/18/19 24 11/18/2023 COMPR EHENS NADEEM METAB OLIC PANEL albumin 3.8 g/dL 3.4-5. 0 normal Not Available [address] [place], [address] 11/18/2023 16:19:21 11/18/19 24 11/18/2023 COMPR EHENS NADEEM METAB OLIC PANEL bilirubin, total 0.92 mg/dL 0.2-1. 0 normal Not Available [address] [place], [address] 11/18/2023 16:19:21 11/18/19 24 11/18/2023 COMPR EHENS NADEEM METAB OLIC PANEL alk phos 68 U/L 46-116 normal Not Available [address] [place], [address] 11/18/2023 16:19:21 11/18/19 24 11/18/2023 COMPR EHENS NADEEM METAB OLIC PANEL sodium 144 mmol/ L 136-14 5 normal Not Available [address] [place], [address] 11/18/2023 16:19:21 11/18/19 24 11/18/2023 COMPR EHENS NADEEM METAB OLIC PANEL potassium 3.6 mmol/ L 3.5-5. 1 normal Not Available [address] [place], [address] 11/18/2023 16:19:21 11/18/19 24 11/18/2023 COMPR EHENS NADEEM METAB OLIC PANEL chloride 106 mmol/ L 98-107 normal Not Available [address] [place], [address] 11/18/2023 16:19:21 11/18/19 24 11/18/2023 COMPR EHENS NADEEM METAB OLIC PANEL CO2 29.6 mmol/ L 21.0-3 2.0 normal Not Available [address] [place], [address] 11/18/2023 16:19:21 11/18/19 24 11/18/2023 COMPR EHENS NADEEM METAB OLIC PANEL anion gap 8.4 mmol/ L 3-11 normal Not Available [address] [place], [address] 11/18/2023 16:19:21 11/18/19 24 11/18/2023 COMPR EHENS NADEEM METAB OLIC PANEL AST 15 U/L 15-37 normal Not Available Ethel green [address] [place], [address] 11/18/2023 16:19:21 11/18/19 24 11/18/2023 COMPR EHENS NADEEM METAB OLIC PANEL ALT 16 U/L 14-59 normal Not Available Ethel green [address] [place], [address] 11/18/2023 16:19:21 11/18/19 24 11/18/2023 MAGNE SIUM magnesium 1.9 mg/dL 1.8-2. 4 normal Not Available [address] [place], [address] 11/18/2023 16:19:21 11/18/19 24 11/18/2023 LIPAS E lipase 24 U/L 16-77 normal Not Available Ethel green [address] [place], [address] 11/18/2023 16:19:22 11/18/19 24 11/18/2023 TROPO LUCIA I troponin I < 50 NG/L < or =60 Not Available [address] [place], [address] 11/18/2023 16:19:22 11/18/19 24 11/18/2023 NT-MI OBNP nt-probnp 3052 pg/mL <300 high NT-pr [...] false negat nadeem resul ts. Not Available [address] [place], [address] 11/18/2023 16:19:23 11/18/19 24 11/18/2023 TSH (W/RE F FT4) TSH (w/ref FT4) 0.49 uIU/m L 0.36-3 .74 normal Not Available [address] [place], [address] 11/18/2023 16:22:20 11/18/19 24 11/18/2023 URINA LYSIS color Yellow yellow Not Available [facility] [address] [place], [address] 11/18/2023 19:26:06 11/18/19 24 11/18/2023 URINA LYSIS clarity Clear clear Not Available Ethel [facility] [address] [place], [address] 11/18/2023 19:26:06 11/18/19 24 11/18/2023 URINA LYSIS specific gravity 1.015 1.005- 1.025 normal Not Available [address] [place], [address] 11/18/2023 19:26:06 11/18/19 24 11/18/2023 URINA LYSIS pH 6.5 5-8 normal Not Available Ethel green [address] [place], [address] 11/18/2023 19:26:06 11/18/19 24 11/18/2023 URINA LYSIS leukocyte esterase Small negati ve abnormal Not Available [address] [place], [address] 11/18/2023 19:26:06 11/18/19 24 11/18/2023 URINA LYSIS nitrite Negati ve negati ve Not Available [address] [place], [address] 11/18/2023 19:26:06 11/18/19 24 11/18/2023 URINA LYSIS protein Negati ve mg/dL neg-tr patrick Not Available [address] [place], [address] 11/18/2023 19:26:06 11/18/19 24 11/18/2023 URINA LYSIS glucose Negati ve mg/dL negati ve Not Available [address] [place], [address] 11/18/2023 19:26:06 11/18/19 24 11/18/2023 URINA LYSIS ketones Negati ve mg/dL negati ve Not Available [address] [place], [address] 11/18/2023 19:26:06 11/18/19 24 11/18/2023 URINA LYSIS urobilinogen 0.2 mg/dL up to 0.2 Not Available [address] [place], [address] 11/18/2023 19:26:06 11/18/19 24 11/18/2023 URINA LYSIS bilirubin Negati ve negati ve Not Available [address] [place], [address] 11/18/2023 19:26:06 11/18/19 24 11/18/2023 URINA LYSIS blood Negati ve negati ve Not Available [address] [place], [address] 11/18/2023 19:26:06 11/18/19 24 11/18/2023 URINA LYSIS color Yellow yellow Not Available [facility] [address] [place], [address] 11/18/2023 20:30:25 11/18/19 24 11/18/2023 URINA LYSIS clarity Clear clear Not Available Ethel green [address] [place], [address] 11/18/2023 20:30:25 11/18/19 24 11/18/2023 URINA LYSIS specific gravity 1.015 1.005- 1.025 normal Not Available [address] [place], [address] 11/18/2023 20:30:25 11/18/19 24 11/18/2023 URINA LYSIS pH 6.5 5-8 normal Not Available Ethel green [address] [place], [address] 11/18/2023 20:30:25 11/18/19 24 11/18/2023 URINA LYSIS leukocyte esterase Small negati ve abnormal Not Available [address] [place], [address] 11/18/2023 20:30:25 11/18/19 24 11/18/2023 URINA LYSIS nitrite Negati ve negati ve Not Available [address] [place], [address] 11/18/2023 20:30:25 11/18/19 24 11/18/2023 URINA LYSIS protein Negati ve mg/dL neg-tr patrick Not Available [address] [place], [address] 11/18/2023 20:30:25 11/18/19 24 11/18/2023 URINA LYSIS glucose Negati ve mg/dL negati ve Not Available [address] [place], [address] 11/18/2023 20:30:25 11/18/19 24 11/18/2023 URINA LYSIS ketones Negati ve mg/dL negati ve Not Available [address] [place], [address] 11/18/2023 20:30:25 11/18/19 24 11/18/2023 URINA LYSIS urobilinogen 0.2 mg/dL up to 0.2 Not Available [address] [place], [address] 11/18/2023 20:30:25 11/18/19 24 11/18/2023 URINA LYSIS bilirubin Negati ve negati ve Not Available [address] [place], [address] 11/18/2023 20:30:25 11/18/19 24 11/18/2023 URINA LYSIS blood Negati ve negati ve Not Available [address] [place], [address] 11/18/2023 20:30:25 11/18/19 24 11/18/2023 MICRO SCOPI C FINDI NGS WBC 3-5 hpf 0-5 Not Available Ethel green [address] [place], [address] 11/18/2023 20:30:25 11/18/19 24 11/18/2023 MICRO SCOPI C FINDI NGS RBC Negati ve hpf 0-2 Not Available Joel smith [address] [place], [address] 11/18/2023 20:30:25 11/18/19 24 11/18/2023 MICRO SCOPI C FINDI NGS epithelial cells Many hpf negati ve Not Available [address] [place], [address] 11/18/2023 20:30:25 11/18/19 24 11/18/2023 MICRO SCOPI C FINDI NGS bacteria Few hpf negati ve Not Available [address] [place], [address] 11/18/2023 20:30:25 11/18/19 24 11/18/2023 MICRO SCOPI C FINDI NGS crystals Negati ve hpf negati ve Not Available [address] [place], [address] 11/18/2023 20:30:25 11/18/19 24 11/18/2023 MICRO SCOPI C FINDI NGS mucus Trace negati ve Not Available [address] [place], [address] 11/18/2023 20:30:25 11/18/19 24 11/18/2023 MICRO SCOPI C FINDI NGS C S indicated? No Not Available 26 [place], [address] 11/18/2023 20:30:25 11/18/19 24 11/18/2023 TROPO LUCIA I troponin I < 50 NG/L < or =60 Not Available [address] [place], [address] 11/18/2023 22:25:47 11/18/19 24 11/18/2023 VENOU S BLOOD GAS pH (venous) 7.45 7.31-7 .41 high Not Available [address] [place], [address] 11/18/2023 23:12:54 11/18/19 24 11/18/2023 VENOU S BLOOD GAS pCO2 (venous) 44 mmHg 41-51 normal Not Available [address] [place], [address] 11/18/2023 23:12:54 11/18/19 24 11/18/2023 VENOU S BLOOD GAS pO2 (venous) 37 mmHg Not Available [address] [place], [address] 11/18/2023 23:12:54 11/18/19 24 11/18/2023 VENOU S BLOOD GAS TCO2 (venous) 28 mmol/ L 24-29 normal Not Available [address] [place], [address] 11/18/2023 23:12:54 11/18/19 24 11/18/2023 VENOU S BLOOD GAS HCO3 (venous) 30 mmol/ L 23-28 high Not Available [address] [place], [address] 11/18/2023 23:12:54 11/18/19 24 11/18/2023 VENOU S BLOOD GAS BE (venous) 6 mmol/ L -2-3 high Not Available [address] [place], [address] 11/18/2023 23:12:54 11/18/19 24 11/18/2023 VENOU S BLOOD GAS O2 sat (venous) 74 % Not Available Ariela avitia [address] [place], [address] 11/18/2023 23:12:54 11/19/19 24 11/19/2023 COMPL ETE BLOOD COUNT W/DIF F WBC 7.07 10_3/ uL 4.4-10 .8 normal Not Available [address] [place], [address] 11/19/2023 07:03:22 11/19/19 24 11/19/2023 COMPL ETE BLOOD COUNT W/DIF F RBC 2.93 10_6/ uL 3.93-5 .22 low Not Available [address] [place], [address] 11/19/2023 07:03:22 11/19/19 24 11/19/2023 COMPL ETE BLOOD COUNT W/DIF F HGB 9.8 g/dL 11.2-1 5.7 low Not Available [address] [place], [address] 11/19/2023 07:03:22 11/19/19 24 11/19/2023 COMPL ETE BLOOD COUNT W/DIF F HCT 30.5 % 36.0-4 6.0 low Not Available [address] [place], [address] 11/19/2023 07:03:22 11/19/19 24 11/19/2023 COMPL ETE BLOOD COUNT W/DIF F MCV 104 fL 80-95 high Not Available Ethel green [address] [place], [address] 11/19/2023 07:03:22 11/19/19 24 11/19/2023 COMPL ETE BLOOD COUNT W/DIF F MCH 33.4 pg 27.0-3 3.0 high Not Available [address] [place], [address] 11/19/2023 07:03:22 11/19/19 24 11/19/2023 COMPL ETE BLOOD COUNT W/DIF F MCHC 32.1 % 32.0-3 6.0 normal Not Available [address] [place], [address] 11/19/2023 07:03:22 11/19/19 24 11/19/2023 COMPL ETE BLOOD COUNT W/DIF F RDW 14.4 % 11.7-1 4.6 normal Not Available [address] [place], [address] 11/19/2023 07:03:22 11/19/19 24 11/19/2023 COMPL ETE BLOOD COUNT W/DIF F platelet count 112 10_3/ uL 130-40 0 low Not Available [address] [place], [address] 11/19/2023 07:03:22 11/19/19 24 11/19/2023 COMPL ETE BLOOD COUNT W/DIF F MPV 10.8 fL 8.0-11 .0 normal Not Available [address] [place], [address] 11/19/2023 07:03:22 11/19/19 24 11/19/2023 COMPL ETE BLOOD COUNT W/DIF F neutrophils % 74.3 % Not Available [address] [place], [address] 11/19/2023 07:03:22 11/19/19 24 11/19/2023 COMPL ETE BLOOD COUNT W/DIF F lymphocytes % 14.1 % Not Available [address] [place], [address] 11/19/2023 07:03:22 11/19/19 24 11/19/2023 COMPL ETE BLOOD COUNT W/DIF F monocytes % 6.5 % Not Available [address] [place], [address] 11/19/2023 07:03:22 11/19/19 24 11/19/2023 COMPL ETE BLOOD COUNT W/DIF F eosinophils % 4.4 % Not Available [address] [place], [address] 11/19/2023 07:03:22 11/19/19 24 11/19/2023 COMPL ETE BLOOD COUNT W/DIF F basophils % 0.4 % Not Available [address] [place], [address] 11/19/2023 07:03:22 11/19/19 24 11/19/2023 COMPL ETE BLOOD COUNT W/DIF F immature grans % 0.3 % Not Available [address] [place], [address] 11/19/2023 07:03:22 11/19/19 24 11/19/2023 COMPL ETE BLOOD COUNT W/DIF F nucleated RBC 0.0 % 0.0-0. 3 normal Not Available [address] [place], [address] 11/19/2023 07:03:22 11/19/19 24 11/19/2023 COMPL ETE BLOOD COUNT W/DIF F absolute neutrophil count 5.25 10_3/ uL 1.2-6. 7 normal Not Available [address] [place], [address] 11/19/2023 07:03:22 11/19/19 24 11/19/2023 COMPL ETE BLOOD COUNT W/DIF F absolute lymphocyte count 1.00 10_3/ uL 1.2-3. 4 low Not Available [address] [place], [address] 11/19/2023 07:03:22 11/19/19 24 11/19/2023 COMPL ETE BLOOD COUNT W/DIF F absolute monocyte count 0.46 10_3/ uL 0.1-0. 8 normal Not Available [address] [place], [address] 11/19/2023 07:03:22 11/19/19 24 11/19/2023 COMPL ETE BLOOD COUNT W/DIF F absolute eosinophil count 0.31 10_3/ uL 0.0-0. 7 normal Not Available [address] [place], [address] 11/19/2023 07:03:22 11/19/19 24 11/19/2023 COMPL ETE BLOOD COUNT W/DIF F absolute basophil count 0.03 10_3/ uL 0.0-0. 2 normal Not Available [address] [place], [address] 11/19/2023 07:03:22 11/19/19 24 11/19/2023 IRON AND IBCT iron 45 ug/dL 50-170 low Not Available Ethel green [address] [place], [address] 11/19/2023 07:24:25 11/19/19 24 11/19/2023 IRON AND IBCT total iron binding capacity 284 ug/dL 250-45 0 normal Not Available [address] [place], [address] 11/19/2023 07:24:25 11/19/19 24 11/19/2023 IRON AND IBCT transferrin sat 16 % 15-50 normal Not Available Ariela avitia [address] [place], [address] 11/19/2023 07:24:25 11/19/19 24 11/19/2023 BASIC METAB OLIC PANEL calcium 8.5 mg/dL 8.5-10 .1 normal Not Available [address] [place], [address] 11/19/2023 07:49:36 11/19/19 24 11/19/2023 BASIC METAB OLIC PANEL glucose 93 mg/dL 74-106 normal Not Available Ethel green [address] [place], [address] 11/19/2023 07:49:36 11/19/19 24 11/19/2023 BASIC METAB OLIC PANEL BUN 12 mg/dL 7-18 normal Not Available Ethel green [address] [place], [address] 11/19/2023 07:49:36 11/19/19 24 11/19/2023 BASIC METAB OLIC PANEL creatinine 0.8 mg/dL 0.55-1 .02 normal Not Available [address] [place], [address] 11/19/2023 07:49:36 11/19/19 24 11/19/2023 BASIC METAB [...] young er-ag ed adult s. Not Available [address] [place], [address] 11/19/2023 07:49:36 11/19/19 24 11/19/2023 BASIC METAB OLIC PANEL sodium 147 mmol/ L 136-14 5 high Not Available [address] [place], [address] 11/19/2023 07:49:36 11/19/19 24 11/19/2023 BASIC METAB OLIC PANEL potassium 3.2 mmol/ L 3.5-5. 1 low Not Available [address] [place], [address] 11/19/2023 07:49:36 11/19/19 24 11/19/2023 BASIC METAB OLIC PANEL chloride 107 mmol/ L 98-107 normal Not Available [address] [place], [address] 11/19/2023 07:49:36 11/19/19 24 11/19/2023 BASIC METAB OLIC PANEL CO2 31.2 mmol/ L 21.0-3 2.0 normal Not Available [address] [place], [address] 11/19/2023 07:49:36 11/19/19 24 11/19/2023 BASIC METAB OLIC PANEL anion gap 8.8 mmol/ L 3-11 normal Not Available [address] [place], [address] 11/19/2023 07:49:36 11/19/19 24 11/19/2023 DANIEL TIN ferritin 169 NG/mL 8-252 normal Not Available [address] [place], [address] 11/19/2023 07:49:36 11/19/19 24 11/19/2023 MAGNE SIUM magnesium 1.8 mg/dL 1.8-2. 4 normal Not Available [address] [place], [address] 11/19/2023 07:49:37 11/19/19 24 11/19/2023 VITAM IN B12 vitamin B12 1124 pg/mL 193-98 6 high Not Available [address] [place], [address] 11/19/2023 07:49:37 11/19/19 24 11/19/2023 FOLAT E folate 19.3 NG/mL 8.6-20 .0 normal Not Available [address] [place], [address] 11/19/2023 07:49:37 11/19/19 24 11/20/2023 TRANS DANIEL N transferrin 188 mg/dL 201-35 2 abnormal Test perfo rmed or refer red by [facility] [address] [place] [address] Not Available [address] [place], [address] 11/23/2023 12:15:30 11/20/19 24 11/20/2023 BASIC METAB OLIC PANEL calcium 8.9 mg/dL 8.5-10 .1 normal Not Available [address] [place], [address] 11/20/2023 07:12:43 11/20/19 24 11/20/2023 BASIC METAB OLIC PANEL glucose 115 mg/dL 74-106 high Not Available Ethel green [address] [place], [address] 11/20/2023 07:12:43 11/20/19 24 11/20/2023 BASIC METAB OLIC PANEL BUN 19 mg/dL 7-18 high Not Available Ethel green [address] [place], [address] 11/20/2023 07:12:43 11/20/19 24 11/20/2023 BASIC METAB OLIC PANEL creatinine 1.0 mg/dL 0.55-1 .02 normal Not Available [address] [place], [address] 11/20/2023 07:12:43 11/20/19 24 11/20/2023 BASIC METAB [...] young er-ag ed adult s. Not Available [address] [place], [address] 11/20/2023 07:12:43 11/20/19 24 11/20/2023 BASIC METAB OLIC PANEL sodium 140 mmol/ L 136-14 5 normal Not Available [address] [place], [address] 11/20/2023 07:12:43 11/20/19 24 11/20/2023 BASIC METAB OLIC PANEL potassium 3.6 mmol/ L 3.5-5. 1 normal Not Available [address] [place], [address] 11/20/2023 07:12:43 11/20/19 24 11/20/2023 BASIC METAB OLIC PANEL chloride 100 mmol/ L 98-107 normal Not Available [address] [place], [address] 11/20/2023 07:12:43 11/20/19 24 11/20/2023 BASIC METAB OLIC PANEL CO2 33.2 mmol/ L 21.0-3 2.0 high Not Available [address] [place], [address] 11/20/2023 07:12:43 11/20/19 24 11/20/2023 BASIC METAB OLIC PANEL anion gap 6.8 mmol/ L 3-11 normal Not Available [address] [place], [address] 11/20/2023 07:12:43 12/02/19 24 12/02/2023 BASIC METAB OLIC PANEL calcium 9.8 mg/dL 8.5-10 .1 normal Not Available [address] [place], [address] 12/02/2023 16:25:21 12/02/19 24 12/02/2023 BASIC METAB OLIC PANEL glucose 104 mg/dL 74-106 normal Not Available Ethel green [address] [place], [address] 12/02/2023 16:25:21 12/02/19 24 12/02/2023 BASIC METAB OLIC PANEL BUN 20 mg/dL 7-18 high Not Available Ethel green [address] [place], [address] 12/02/2023 16:25:21 12/02/19 24 12/02/2023 BASIC METAB OLIC PANEL creatinine 1.1 mg/dL 0.55-1 .02 high Not Available [address] [place], [address] 12/02/2023 16:25:21 12/02/19 24 12/02/2023 BASIC METAB [...] young er-ag ed adult s. Not Available [address] [place], [address] 12/02/2023 16:25:21 12/02/19 24 12/02/2023 BASIC METAB OLIC PANEL sodium 143 mmol/ L 136-14 5 normal Not Available [address] [place], [address] 12/02/2023 16:25:21 12/02/19 24 12/02/2023 BASIC METAB OLIC PANEL potassium 4.6 mmol/ L 3.5-5. 1 normal Not Available [address] [place], [address] 12/02/2023 16:25:21 12/02/19 24 12/02/2023 BASIC METAB OLIC PANEL chloride 106 mmol/ L 98-107 normal Not Available [address] [place], [address] 12/02/2023 16:25:21 12/02/19 24 12/02/2023 BASIC METAB OLIC PANEL CO2 29.1 mmol/ L 21.0-3 2.0 normal Not Available [address] [place], [address] 12/02/2023 16:25:21 12/02/19 24 12/02/2023 BASIC METAB OLIC PANEL anion gap 7.9 mmol/ L 3-11 normal Not Available [address] [place], [address] 12/02/2023 16:25:21 12/02/19 24 12/02/2023 MAGNE SIUM magnesium 1.8 mg/dL 1.8-2. 4 normal Not Available [address] [place], [address] 12/02/2023 16:25:22 12/02/19 24 12/02/2023 NT-MI OBNP nt-probnp 2190 pg/mL <300 high NT-pr [...] false negat nadeem resul ts. Not Available [facility] (Registration ) [address] [place] [address] [place], [address], 12/02/2023 16:25:22 12/02/19 24 12/02/2023 COMPL ETE BLOOD COUNT NO DIFF WBC 7.43 10_3/ uL 4.4-10 .8 normal Not Available [address] [place], [address] 12/02/2023 16:35:23 12/02/19 24 12/02/2023 COMPL ETE BLOOD COUNT NO DIFF RBC 3.18 10_6/ uL 3.93-5 .22 low Not Available [address] [place], [address] 12/02/2023 16:35:23 12/02/19 24 12/02/2023 COMPL ETE BLOOD COUNT NO DIFF HGB 10.6 g/dL 11.2-1 5.7 low Not Available [address] [place], [address] 12/02/2023 16:35:23 12/02/19 24 12/02/2023 COMPL ETE BLOOD COUNT NO DIFF HCT 33.5 % 36.0-4 6.0 low Not Available [address] [place], [address] 12/02/2023 16:35:23 12/02/19 24 12/02/2023 COMPL ETE BLOOD COUNT NO DIFF MCV 105 fL 80-95 high 1+ macro cytos is Not Available [address] [place], [address] 12/02/2023 16:35:23 12/02/19 24 12/02/2023 COMPL ETE BLOOD COUNT NO DIFF MCH 33.3 pg 27.0-3 3.0 high Not Available [address] [place], [address] 12/02/2023 16:35:23 12/02/19 24 12/02/2023 COMPL ETE BLOOD COUNT NO DIFF MCHC 31.6 % 32.0-3 6.0 low Not Available [address] [place], [address] 12/02/2023 16:35:23 12/02/19 24 12/02/2023 COMPL ETE BLOOD COUNT NO DIFF RDW 13.3 % 11.7-1 4.6 normal Not Available [address] [place], [address] 12/02/2023 16:35:23 12/02/19 24 12/02/2023 COMPL ETE BLOOD COUNT NO DIFF platelet count 140 10_3/ uL 130-40 0 normal Not Available [address] [place], [address] 12/02/2023 16:35:23 12/02/19 24 12/02/2023 COMPL ETE BLOOD COUNT NO DIFF MPV 11.8 fL 8.0-11 .0 high Not Available [address] [place], [address] 12/02/2023 16:35:23 04/18/20 24 04/18/2024 COMPL ETE BLOOD COUNT NO DIFF WBC 6.58 10_3/ uL 4.4-10 .8 normal Not Available [address] [place], [address] 04/18/2024 15:08:25 04/18/20 24 04/18/2024 COMPL ETE BLOOD COUNT NO DIFF RBC 3.70 10_6/ uL 3.93-5 .22 low Not Available [address] [place], [address] 04/18/2024 15:08:25 04/18/20 24 04/18/2024 COMPL ETE BLOOD COUNT NO DIFF HGB 12.0 g/dL 11.2-1 5.7 normal Not Available [address] [place], [address] 04/18/2024 15:08:25 04/18/20 24 04/18/2024 COMPL ETE BLOOD COUNT NO DIFF HCT 38.0 % 36.0-4 6.0 normal Not Available [address] [place], [address] 04/18/2024 15:08:25 04/18/20 24 04/18/2024 COMPL ETE BLOOD COUNT NO DIFF MCV 103 fL 80-95 high Not Available [address] [place], [address] 04/18/2024 15:08:25 04/18/20 24 04/18/2024 COMPL ETE BLOOD COUNT NO DIFF MCH 32.4 pg 27.0-3 3.0 normal Not Available [address] [place], [address] 04/18/2024 15:08:25 04/18/20 24 04/18/2024 COMPL ETE BLOOD COUNT NO DIFF MCHC 31.6 % 32.0-3 6.0 low Not Available [address] [place], [address] 04/18/2024 15:08:25 04/18/20 24 04/18/2024 COMPL ETE BLOOD COUNT NO DIFF RDW 15.6 % 11.7-1 4.6 high Not Available [address] [place], [address] 04/18/2024 15:08:25 04/18/20 24 04/18/2024 COMPL ETE BLOOD COUNT NO DIFF platelet count 124 10_3/ uL 130-40 0 low Not Available [address] [place], [address] 04/18/2024 15:08:25 04/18/20 24 04/18/2024 COMPL ETE BLOOD COUNT NO DIFF MPV 11.2 fL 8.0-11 .0 high Not Available [address] [place], [address] 04/18/2024 15:08:25 04/18/20 24 04/18/2024 IRON AND IBCT iron 65 ug/dL 50-170 normal Not Available [facility] (Registration ) [address] [place] [address] [place], [address], 04/18/2024 16:07:17 04/18/20 24 04/18/2024 IRON AND IBCT total iron binding capacity 318 ug/dL 250-45 0 normal Not Available [facility] (Registration ) [address] [place] [address] [place], [address], 04/18/2024 16:07:17 04/18/20 24 04/18/2024 IRON AND IBCT transferrin sat 20 % 15-50 normal Not Available [facility] (Registration ) [address] [place] [address] [place], [address], 04/18/2024 16:07:17 04/18/20 24 04/18/2024 BASIC METAB OLIC PANEL calcium 9.4 mg/dL 8.5-10 .1 normal Not Available [facility] (Registration ) [address] [place] [address] [place], [address], 04/18/2024 16:09:17 04/18/20 24 04/18/2024 BASIC METAB OLIC PANEL glucose 103 mg/dL 74-106 normal Not Available [facility] (Registration ) [address] [place] [address] [place], [address], 04/18/2024 16:09:17 04/18/20 24 04/18/2024 BASIC METAB OLIC PANEL BUN 21 mg/dL 7-18 high Not Available [facility] (Registration ) [address] [place] [address] [place], [address], 04/18/2024 16:09:17 04/18/20 24 04/18/2024 BASIC METAB OLIC PANEL creatinine 1.0 mg/dL 0.55-1 .02 normal Not Available [facility] (Registration ) [address] [place] [address] [place], [address], 04/18/2024 16:09:17 04/18/20 24 04/18/2024 BASIC METAB OLIC PANEL estimated GFR 57.66 mL/min /1.73M 2 The eGFR is calcu lated from [...] young er-ag ed adult s. Not Available [facility] (Registration ) [address] [place] [address] [place], [address], 04/18/2024 16:09:17 04/18/20 24 04/18/2024 BASIC METAB OLIC PANEL sodium 145 mmol/ L 136-14 5 normal Not Available [facility] (Registration ) [address] [place] [address] [place], [address], 04/18/2024 16:09:17 04/18/20 24 04/18/2024 BASIC METAB OLIC PANEL potassium 4.2 mmol/ L 3.5-5. 1 normal Not Available [facility] (Registration ) [address] [place] [address] [place], [address], 04/18/2024 16:09:17 04/18/20 24 04/18/2024 BASIC METAB OLIC PANEL chloride 107 mmol/ L 98-107 normal Not Available [facility] (Registration ) [address] [place] [address] [place], [address], 04/18/2024 16:09:17 04/18/20 24 04/18/2024 BASIC METAB OLIC PANEL CO2 31.4 mmol/ L 21.0-3 2.0 normal Not Available [facility] (Registration ) [address] [place] [address] [place], [address], 04/18/2024 16:09:17 04/18/20 24 04/18/2024 BASIC METAB OLIC PANEL anion gap 6.6 mmol/ L 3-11 normal Not Available [facility] (Registration ) [address] [place] [address] [place], [address], 04/18/2024 16:09:17 04/18/20 24 04/18/2024 DANIEL TIN ferritin 211 NG/mL 8-252 normal Not Available [facility] (Registration ) [address] [place] [address] [place], [address], 04/18/2024 16:09:18 04/18/20 24 04/18/2024 TSH (W/RE F FT4) TSH (w/ref FT4) 2.17 uIU/m L 0.36-3 .74 normal NOTE: Supra -phys iolog ic doses of Bioti n(B7) may cause false negat ndaeem resul ts. Not Available [facility] (Registration ) [address] [place] [address] [place], [address], 04/18/2024 16:09:18 04/18/20 24 04/18/2024 VITAM IN D 25 TOTAL vitamin D 25 total 63.9 NG/mL 30-100 normal Refer ence Guide lines : Defic ient: <10 ng/ml Insuf ficie nt: 10-30 ng/ml Suffi cient : 30-10 0 ng/ml Toxic : >100 ng/ml Not Available [address] [place], [address] 04/18/2024 16:09:19 04/18/20 24 04/18/2024 HEMOG LOBIN A1C hemoglobin A1C 5.4 % <5.7 Refer ence Range s <5.7 Lisa l 5.7-6 .4% Predi abete s 6.5% or great er Diagn ostic for diabe jasson (if confi rmed) Refer ences : 1. [facility]i can [facility]abe [facility]ass[facility] iatio n. Clas sific ation and Diagn osis of Diabe jasson. [facility] 2019 May;4 2(Sup pleme nt 1):S1 3-s28 . Not Available [facility] (Registration ) [address] , [place], [address], 04/18/2024 16:21:24 10/14/19 24 10/14/2023 elect rocar diogr am No observ ation record ed. [facility] [address] , [place], [address], 10/14/2023 11:56:20 10/14/19 24 elect rocar diogr am No observ ation record ed. Not Available 2023 10:55:07 11/04/19 24 10/14/2023 rhyth m strip , EKG* No observ ation record ed. [email or web address] Not Available 2023 10:18:08 11/18/19 24 11/18/2023 US, duple x, lower extre mity Patien t Name: Rema Olson Unit #: [id number] Loc: ER Sonal salazar [facility] er: Braydon Doyle Accoun t #: [id number] Status : REG ER Primar y Care [facility] er: Erich Her M.D. Date of Exam: [...] tation , and color Dopple r. The instrument and control technician ior tibial veins are patent . IMPRES JASON: Right: Negati ve for DVT Left: Negati ve for DVT DATA REPOSI TORY: Ordere d By: Braydon Doyle CC: ------ ------ ------ ------ ------ ------ ------ ------ ------ ------ ------ ------ - Dictat ed By: Lázaro Titus 1610 Transc ribed By: Haim Jesus 1610 This is privil eged, confid ential inform ation intend ed only for the provid er named. Any use or distri bution by any person other than this provid er is strict ly prohib ited. If you receiv e this report in error, please notify us immedi ately at and return the origin al report to us at the addres s above. Thank- you. [facility] [address], [place], [address] 11/18/2023 16:48:49 11/18/19 24 11/18/2023 CT imagi martin hackett Name: Rema Olson Unit #: [id number] Loc: ER Sonal salazar Provid er: Braydon Doyle Accoun t #: [id number] Status : REG ER Primar y Care [...] interl obular septal thicke jama greate r instrument and control technician iorly which could indica te mild CHF. No consol idatio n or domina nt measur able mass. Pleura : Small left pleura l effusi on. Heart: The heart is modera tely dilate d. Licensed Practical Nurse Instructor ior perica rdial effusi on. Minima l [...] . Small perica rdial effusi on seen instrument and control technician iorly. Small left pleura l effusi on. [...] DLP = 0.00 mGy-cm Ordere d By: Matthew Braydon salazar CC: ------ ------ ------ ------ ------ ------ [...] at the addres s above. Thank- you. [facility] [address], [place], [address] 11/19/2023 12:12:11 11/19/19 24 11/19/2023 ultra sound imagi martin repor roxann hackett Name: Rema Olson Unit #: [id number] Loc: MS Sonal salazar Provid er: Huseyin Bolaños M.D. Accoun t #: [id number] Status : ADM IN Primar y Care Provid er: Erich Her M.D. Date of Exam: Sex: F Admiss ion Date: : 1945 Age: 78 ------ ------ --- APPROV ED REPORT ------ ------ -- EXAM: Compre hensmelina e 2D, Dopple r, and color- flow Echoca rdiogr am Tika hackett Locati on: In-Pat ient Room/B ed: 212 Sonogr apher: Radha Greenberg , RDCS (AE) Indica tions: CHF, Perica rdial [...] at the addres s above. Thank- you. [place] [id number] [facility] [place], [address] 11/19/2023 12:12:11 01/18/20 24 11/15/2018 imagi ng/di [...] humeral fracture 2023- MD [address], [place], [address] , [facility] 4 17:34:10 Hypothyr oidism 09176437 Active 1959 EVIE shaw, [facility] 4 10:29:59 [facility] hyperten jason [id number] Active 1959 EVIE shaw, [facility] 4 10:29:36 Hyperlip idemia 95743965 Active 1959 on statin MD [address], [place], [address] , [facility] 4 20:35:18 Spinal stenosis of lumbar region [id number] Active 2012 s/p lumbar [place] L4 MD [address], [place], [address] , [facility] 4 20:36:41 Sleep apnea 78120522 Active 2012 on CPAP MD [address], [place], [address] , [facility] 4 20:39:31 Gastroes ophageal reflux disease without esophagi tis 419594224 Completed 195908/12/2023 Removal Reason: resolved with surgical repair of HH MD [address], [place], [address] , [facility] 4 10:41:24 Family history of malignan t neoplasm of digestiv e organ 010837039 Active [address], [place], [address] , [facility] 4 20:37:03 Paresthe samir [id number] Completed 201412/01/2014 11/28/19 15 - Comments only - Erich Her MD - check B12 and folate Problem Code: R20.2; Problem Code Type: ICD-10; Not Available [facility] 3 05:53:48 Adult health examinat ion Active [address], [place], [address] , [facility] 4 20:33:34 Pre-surg ruben evaluati on Completed [...] Z01.818; Problem Code Type: ICD-10; Not Available [facility] 3 05:53:48 Localize d edema 464267233 Completed 201501/29/2016 12/13/19 16 - Comments only - Erich Her MD - and some on left as well, will check BMP. 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 Nusrat holt for removal. Problem Code: L72.3; Problem Code Type: ICD-10; Not Available [facility] 3 05:53:49 Chronic ulcer of foot 103254828 Completed 201601/16/2017 12/18/19 17 - Comments only - Erich Her MD - Due to injury. This does appear to have some granulat ion tissue and to be healing. She is given a prescrip tion for Keflex to take only if erythema seems to be extendin g. Problem Code: L97.509; Problem Code Type: ICD-10; Not Available [facility] 3 05:53:49 Diarrhea 27977756 Completed 201602/10/2017 02/05/20 17 - Comments only - Erich Her MD - [facility] over several months, we will collect stool for C. 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 6 mm PT1NO E2P2 poistive , HER2 negative ERICH HER MD [address], [place], [address] , [facility] 4 20:38:49 Pain in left lower limb 038759667 Active 2016 EVIE shaw, [facility] 4 10:32:00 Pain in thoracic spine 574754909 Active 2016 EVIE shaw, [facility] 4 10:32:06 Spasm 96008167 Active 2017 EVIE shaw, [facility] 4 10:33:28 Abdomina l distensi on, gaseous 519554039 Completed 201703/08/2018 Problem Code: R14.0; Problem Code Type: ICD-10; Not Available [facility] 3 05:53:50 Cellulit is of toe 11476854 Completed 201808/12/2018 Problem Code: L03.039; Problem Code Type: ICD-10; Not Available [facility] 3 05:53:51 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 4 14:36:02 Tachsrinivas lea 3103861 Completed 201811/25/2018 Problem Code: R00.0; Problem Code Type: ICD-10; Not Available [facility] 3 05:53:51 Pre-surg ruben evaluati on Completed 201811/25/2018 Problem Code: Z01.818; Problem Code Type: ICD-10; Not Available [facility] 3 05:53:51 Iron deficien cy anemia 23894683 Active 2019 elevated MCV: normal B12 2021, normal folate 2018 IV iron 2023 EGD 01/2022 paraesop hageal hernia (since repaired ) colo 03/2017 normal ERICH HER MD [facility] [address], [place], [address] , [facility], [facility]. 4 11:44:45 Lumbago with sciatica 960141581 Completed 201903/16/2020 02/24/20 20 - Comments only - Vy Pinon CRANE OILER - Likely aggravat ed by increase d [...] M54.40; Problem Code Type: ICD-10; Not Available [facility] 3 05:53:52 Right side sciatica 19770128320 9101 Active 2019 EVIE RUFUS shaw, [facility] 4 10:33:09 Left side sciatica 04238365173 9104 Active [address], [facility] [address] , [facility] 4 17:20:20 Diaphrag matic hernia 92830945 Completed 202108/11/2023 Removal Reason: s/p repair MD [address], [facility] [address] , [facility] 4 20:50:39 History of SARS-CoV -2 05031994106 2155940 Completed 202104/04/2022 03/21/20 22 - Comments only - Erich Her MD - testing is negative today in the office. Still some fatigue but otherwis e recoveri ng. Did get MAB. Already had covid bivalent booster prior to illness Problem Code: Z86.16; Problem Code Type: ICD-10; Not Available [facility] 3 05:53:53 Diarrhea 13411827 Completed 202104/18/2022 Problem Code: R19.7; Problem Code Type: ICD-10; MD [address], [facility] [address] , [facility] 4 21:03:02 Screenin g mammogra phy Completed 202208/11/[address], [facility] [address] , [facility] 4 20:36:56 Carpal tunnel syndrome of left wrist 90025697409 9102 Completed 202201/23/2023 Problem Code: G56.02; Problem Code Type: ICD-10; Not Available [facility] 4 05:37:46 Diarrhea 16393119 Active 2022 started colestip ol 01/2023 ERICH HER MD [address], [place], [address] , [facility]. 4 21:03:02 Carpal tunnel syndrome of right wrist 30000764283 9108 Completed 201803/19/2020 Problem Code: G56.01; Problem Code Type: ICD-10; Not Available [facility] 3 05:53:55 Pain of left knee joint 99275140741 4107 Completed 202107/30/2022 Problem Code: M25.562; Problem Code Type: ICD-10; Not Available [facility] 3 05:53:55 Hypersom korina 87308457 Completed 201311/27/2014 Problem Code: 780.54; Problem Code Type: ICD-9; Not Available [facility] 3 05:53:56 Screenin g for disorder Completed 201909/11/2021 Problem Code: Z13.9; Problem Code Type: ICD-10; Not Available [facility] 3 05:53:56 Anemia 510675275 Completed 201903/19/2020 Problem Code: D64.9; Problem Code Type: ICD-10; Not Available [facility] 3 05:53:56 Long-ter m current use of anticoag ulant 662021902 Completed 201709/01/2018 Problem Code: Z79.01; Problem Code Type: ICD-10; Not Available [facility] 3 05:53:57 Chronic rhinitis 78403411 Completed 202108/12/2021 Problem Code: J31.0; Problem Code Type: ICD-10; Not Available [facility] 3 05:53:57 Impaired fasting glycemia 549893583 Completed 201401/28/2023 Not Available [facility] 3 05:53:57 Fatigue 75015153 Completed 201903/19/2020 Problem Code: R53.83; Problem Code Type: ICD-10; Not Available [facility] 3 05:53:58 Upper respirat ory tract infectio n caused by Influenz a A 01862727866 9104 Completed 201707/02/2017 Problem Code: J09.x2; Problem Code Type: ICD-10; Not Available [facility] 3 05:53:59 Diarrhea 20033606 Completed 201709/01/2018 ERICH HER MD [facility] [address], [place], [address] [facility] 4 21:03:02 Acute upper respirat ory infectio n 45140787 Completed 202108/26/2021 Problem Code: J06.9; Problem Code Type: ICD-10; Not Available [facility] 3 05:53:59 Pain in right foot 42514587830 9107 Completed 202207/30/2022 Problem Code: M79.671; Problem Code Type: ICD-10; Not Available [facility] 3 05:54:00 Breast composit ion 443623256 Completed 201601/28/2023 Not Available [facility] 3 05:54:00 Changes in skin texture 597974047 Completed 202207/30/2022 Problem Code: R23.4; Problem Code Type: ICD-10; Not Available [facility] 3 05:54:01 Spasm 03412758 Completed 201603/23/2017 Problem Code: R25.2; Problem Code Type: ICD-10; EVIE shaw [facility] 4 10:33:28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
--- OUTSIDE RECORDS SUMMARY | 2024-04-22 11:11 | XMS_ITS | Encounter Summary ---
[place] [address] Care Team Providers Care Ward Service Supervisor Name Role Phone Ana Her MD Primary Care Provider [phone] Reason for Visit * Auth/Cert Specialty Diagnoses / Procedures Referred By Christiano hackett Referred To Contact Diagnoses S/P repair of paraesophageal hernia Post-Op monitoring Procedures PRO LAPARSCOPY REPAIR PARAESOPHAGEAL HERNIA INCL FUNDOPLASTY W/O MESH LAPAROSCOPIC PARAESOPHAGEAL HERNIA REPAIR W/FUNDOPLASTY, W/O MESH (WRVU 26.6) MODIFIER TOUPET FUNDOPLASTY Shania Will MD [facility] [place] [address] [facility] Referral ID Status Reason Start Date Expiration Date Visits Re quested Visits Authorized [id number] 1 1 Encounter Details Date Type Department Care Team (Late st Contact Info) Description 03/05/2022 12:54 PM EDT - 03/05/2022 4:55 PM EDT [place] [phone] Shania Will MD [facility] [place] [address] LAPAROSCOPIC PARAESOPHAGEAL HERNIA REPAIR W/FUNDOPLASTY, W/O MESH [...] of left breast of female, estrogen receptor fiyzbbniW75.512, Z17.0 ??? Anemia D64.9 ??? Aortic valve [...] Per chart review, her creatinine levels in 9420-3346 ranged from 0.87-1.50 indicative of possible undiagnosed [...] PM Shania Will MD General Surgery at [facility] Arrive at: Insulation Power Unit Tender Area [phone] Instructions Given to Patient at Discharge: Patient [...] hours please call the Surgery Clinic at [phone] before 5 PM on weekdays. For questions after hours and on weekends please call the hospital pilot control operator helper at [phone] and ask for the General Surgery resident button clamper. They may not be familiar with your [...] post Sly diet, as instructed by the entry level sales associate in the hospital for a period of [...] renal function. Please call the clinic at [phone] to confirm or reschedule. Future Appointments Date Time Provider Department Center 04/03/2022 12:00 PM Shania Will MD [facility] SURG [facility] General Instructions None Future Appointments and Orders Future Appointments and Orders Future Appointments Provider Department Dept Phone 04/03/2022 12:00 PM Shania Will MD General Surgery at [facility] Arrive at: Ins[facility] Power Unit Tender Area [phone] Signed: Shena Harden MD 03/07/22 7:18 AM [phone] Primary Saima Physician: MD Geovany David DR [facility] [[email or web address]] / [facility] [id number] documented in this encounter Discharge Instructions * [...] hours please call the Surgery Clinic at [phone] before 5 PM on weekdays. For questions after hours and on weekends please call the hospital pilot control operator helper at [phone] and ask for the General Surgery resident button clamper. They may not be familiar with your [...] post Sly diet, as instructed by the entry level sales associate in the hospital for a period of [...] renal function. Please call the clinic at [phone] to confirm or reschedule. Future Appointments Date Time Provider Department Center 04/03/2022 12:00 PM Shania Will MD [facility] SURG [facility] documented in this encounter Medications at Time [...] Ocampo RN - 03/07/2022 10:25 AM EDT [facility] Short Stay Unit Discharge Note All [...] Sly Diet Education to pt Digna Olson. Equipment Superintendent metwith pt at bedside to deliver full [...] she is noticing some overall improvement post op.Equipment Superintendent took note of this and encouraged the [...] Department contact information provided. Pt appreciate of chief underwriter's time. Nutrition to follow as needed. [...] Perez MD 03/05/2022 Minimally Invasive Surgery Pager #[phone] * Lorrie Slater RN - 03/05/2022 6:46 [...] ?? She is followed by cardiology at [facility], and is on xarelto. ?? [...] of left breast of female, estrogen receptor [id number], Z17.0 ??? Anemia D64.9 ??? Aortic valve [...] 6.43) performed by Malika Chen MD at [facility] MAIN OR ??? PRO INTRAOP SENTINEL LYMPH ID W/DYE INJECTION Left 03/30/2017 ?? INTRAOPERATIVE ID (MAPPING) SENTINEL LYMPH NODE,INCLUDES INJECTION (WRVU 2.5) performed by Malika Chen MD at [facility] MAIN OR ??? PRO MASTECTOMY PARTIAL Left 03/30/2017 ?? MASTECTOMY PARTIAL (WRVU 10.13) performed by Malika Chen MD at [facility] MAIN OR ?? Cholecystectomy ?? Medications: [...] Operative Note Patient Name: Digna Olson : [id number] MR#: [id number] Case Date: 03/05/2022 Surgeon: Surgeon(s) and Role: [...] Flores MD - 03/05/2022 2:32 PM EDT [facility] Operative Note Patient Name: Digna Olson : [id number] MR#: [id number] Case Date: 03/05/2022 Surgeon: Surgeon(s) and Role: [...] mediastinal dissection to mobilize the esophagus. A Cranston which was placed around the esophagus was [...] Repair Paraesophageal Hernia Incl Fundoplasty W/O Mesh (12225) 03/05/2022 1:58 PM EDT Paraesophageal Hernia POCT GLUCOSE Routine 03/05/2022 12:18 PM EDT LAPAROSCOPIC PARAESOPHAGEAL HERNIA REPAIR W FUNDOPLASTY, W/O MESH Routine 03/05/2022 12:02 PM EDT documented in this encounter Results * (ABNORMAL) Differential, Automated (03/07/2022 5:08 AM EDT) Neutrophil % 80.0 % [facility] Neutrophil Absolute 5.30 1.70 - 6.10 x10(3)/mc L [facility] Lymph % 12.1 % [facility] Lymphocytes Abs 0.8(L) 0.9 - 3.2 x10(3)/mc L [facility] Monocyte % 7.6 % [facility] Monocyte Abs 0.5 0.3 - 0.9 x10(3)/mc L [facility] Eos % 0.0 % [facility] Eosinophils Abs 0.0 0.0 - 0.4 x10(3)/[facility] Basophil % 0.0 % [facility] Baso Absolute 0.0 0.0 - 0.1 x10(3)/[facility] Immature Gran % 0.30 % [facility] Comment: Immature granulocytes(IG's)percentage and absolute count will include metamyelocytes, myelocytes, and promyelocytes. Blood smears from CBCs yielding IG's will be scanned manually for concordance. If this scan disagrees with the automated IG or if promyelocytes are noted, a manual differential will be performed. Immature Gran Absolute 0.02 0.00 - 0.04 x10(3)/[facility] Blood 03/07/2022 5:08 AM EDT 03/07/2022 5:19 AM EDT Narrative Resulting Agency Comment Spec In Lab Nino Levy MD HEMATOLOGY ORDERABLE S [facility] [place] [address] * (ABNORMAL) Hemogram (03/07/2022 5:08 AM EDT) White Blood Cell 6.6 4.0 - 9.5 x10(3)/[facility] Red Blood Cell 3.16(L) 4.00 - 5.21 x10(6)/[facility] Hemoglobin 10.7(L) 11.7 - 15.5 g/dL [facility] Hematocrit 31.7(L) 35.7 - 45.8 % [facility] Mean Cell Volume 100.3(H) 82.6 - 94.4 fL [facility] Mean Cell Hemoglobin 33.9(H) 27.1 - 32.0 pg [facility] Mean Cell Hemoglobin Concentration 33.8 31.7 - 35.0 g/dL [facility] Platelet 110(L) 145 - 357 x10(3)/mc L [facility] RDW Standard Deviation 47.5(H) 37.0 - 46.0 [facility] RDW coefficient of variation 12.9 11.5 - 14.1 % [facility] Mean Platelet Volume 11.7 7.6 - 12.9 [facility] NRBC% auto 0.0 % [facility] NRBC Absolute 0.000 0.000 - 0.000 x10(3)/mc L [facility] Blood 03/07/2022 5:08 AM EDT 03/07/2022 5:19 AM EDT Narrative Resulting Agency Comment Spec In Lab Nino Levy MD HEMATOLOGY ORDERABLE S Performing Organization Address City/[facility]/[place] [address] * Phosphorus (03/07/2022 5:08 AM EDT) Phosphorus 2.7 2.5 - 4.5 mg/dL [facility] Blood 03/07/2022 5:08 AM EDT 03/07/2022 5:19 AM EDT Narrative Resulting Agency Comment Spec In Lab Shania Will MD CHEMISTRY ORDERABLE S Performing Organization Address City/[facility]/ZIP Co de Phone Number [facility] [place] [address] * Magnesium (03/07/2022 5:08 AM EDT) Magnesium 0.89 0.69 - 1.07 mmol/L [facility] Blood 03/07/2022 5:08 AM EDT 03/07/2022 5:19 AM EDT Narrative Resulting Agency Comment Spec In Lab Shania Will MD CHEMISTRY ORDERABLE S [facility] [place] [address] * (ABNORMAL) Basic Metabolic Panel (non-fasting) (03/07/2022 5:08 AM EDT) Glucose 111 65 - 199 mg/dL [facility] Comment:Diabetes: >=200 mg/d L plus symptoms Blood Urea Nitrogen 22(H) 8 - 18 mg/dL [facility] Creatinine 0.93 0.70 - 1.20 mg/dL [facility] Sodium 131(L) 135 - 145 mmol/L [facility] Potassium 4.5 3.5 - 5.0 mmol/L [facility] Comment: Please note: ??Patients with WBC >100,000 may have falsely elevated Potassium levels. ??For accurate Potassium quantification in these patients send serum separator tube (gold top) for subsequent determinations. ??Contact the Clinical Chemistry Laboratory if there are any questions. Chloride 100 98 - 107 mmol/L [facility] Carbon Dioxide 22 22 - 31 mmol/L [facility] Anion Gap 9 5 - 15 mmol/L [facility] Calcium 9.2 8.5 - 10.5 mg/dL [facility] Est Glomerular Filtration Rate 64 >=60 mL/min/1. 73 m?? [facility] Comment: This patient's estimated [...] MD CHEMISTRY ORDERABLE S Performing Organization Address City/[facility]/ZIP Co de Phone Number [facility] [place] [address] * (ABNORMAL) Differential, Automated (03/06/2022 10:15 AM EDT) Neutrophil % 90.7 % [facility] Neutrophil Absolute 5.79 1.70 - 6.10 x10(3)/mc L [facility] Lymph % 5.0 % [facility] Lymphocytes Abs 0.3(L) 0.9 - 3.2 x10(3)/mc L [facility] Monocyte % 3.8 % [facility] Monocyte Abs 0.2(L) 0.3 - 0.9 x10(3)/mc L [facility] Eos % 0.0 % [facility] Eosinophils Abs 0.0 0.0 - 0.4 x10(3)/[facility] Basophil % 0.0 % [facility] Baso Absolute 0.0 0.0 - 0.1 x10(3)/ L [facility] Immature Gran % 0.50 % [facility] Comment: Immature granulocytes(IG's)percentage and absolute count will include metamyelocytes, myelocytes, and promyelocytes. Blood smears from CBCs yielding IG's will be scanned manually for concordance. If this scan disagrees with the automated IG or if promyelocytes are noted, a manual differential will be performed. Immature Gran Absolute 0.03 0.00 - 0.04 x10(3)/mc L [facility] Blood 03/06/2022 10:1 5 AM EDT 03/06/2022 10:21 AM EDT Narrative Resulting Agency Comment Spec In Lab Maryam MUELLER HEMATOLOGY ORDERABL ES Performing Organization Address City/[facility]/ZIP Co de Phone Number [facility] [place] [address] * (ABNORMAL) Hemogram (03/06/2022 10:15 AM EDT) White Blood Cell 6.4 4.0 - 9.5 x10(3)/mc L [facility] Red Blood Cell 3.07(L) 4.00 - 5.21 x10(6)/mc L [facility] Hemoglobin 10.5(L) 11.7 - 15.5 g/dL [facility] Hematocrit 31.1(L) 35.7 - 45.8 % [facility] Mean Cell Volume 101.3(H) 82.6 - 94.4 fL [facility] Mean Cell Hemoglobin 34.2(H) 27.1 - 32.0 pg [facility] Mean Cell Hemoglobin Concentration 33.8 31.7 - 35.0 g/dL [facility] Platelet 111(L) 145 - 357 x10(3)/[facility] RDW Standard Deviation 47.2(H) 37.0 - 46.0 [facility] RDW coefficient of variation 12.9 11.5 - 14.1 % [facility] Mean Platelet Volume 11.5 7.6 - 12.9 [facility] NRBC% auto 0.0 % [facility] NRBC Absolute 0.000 0.000 - 0.000 x10(3)/ L [facility] Blood 03/06/2022 10:1 5 AM EDT 03/06/2022 10:21 AM EDT Narrative Resulting Agency Comment Spec In Lab Maryam MUELLER HEMATOLOGY ORDERABL ES [facility] [place] [address] * Phosphorus (03/06/2022 10:15 AM EDT) Phosphorus 3.3 2.5 - 4.5 mg/dL [facility] Blood 03/06/2022 10:1 5 AM EDT 03/06/2022 10:21 AM EDT Narrative Resulting Agency Comment Spec In Lab Shania Will MD CHEMISTRY ORDERABLE S [facility] [place] [address] * Magnesium (03/06/2022 10:15 AM EDT) Magnesium 0.69 0.69 - 1.07 mmol/L [facility] Blood 03/06/2022 10:1 5 AM EDT 03/06/2022 10:21 AM EDT Narrative Resulting Agency Comment Spec In Lab Shania Will MD CHEMISTRY ORDERABLE S Performing Organization Address City/[facility]/ZIP Co de Phone Number [facility] [place] [address] * (ABNORMAL) Basic Metabolic Panel (non-fasting) (03/06/2022 10:15 AM EDT) Glucose 155 65 - 199 mg/dL [facility] Comment:Diabetes: >=200 mg/d L plus symptoms Blood Urea Nitrogen 29(H) 8 - 18 mg/dL [facility] Creatinine 1.25(H) 0.70 - 1.20 mg/dL [facility] Sodium 134(L) 135 - 145 mmol/L [facility] Potassium 4.8 3.5 - 5.0 mmol/L [facility] Comment: Please note: ??Patients with WBC >100,000 may have falsely elevated Potassium levels. ??For accurate Potassium quantification in these patients send serum separator tube (gold top) for subsequent determinations. ??Contact the Clinical Chemistry Laboratory if there are any questions. Chloride 101 98 - 107 mmol/L [facility] Carbon Dioxide 23 22 - 31 mmol/L [facility] Anion Gap 10 5 - 15 mmol/L [facility] Calcium 8.9 8.5 - 10.5 mg/dL [facility] Est Glomerular Filtration Rate 45(L) >=60 mL/min/1. 73 m?? [facility] Comment: This patient's estimated [...] CHEMISTRY ORDERABLE S Performing Organization Address City/State/[facility] Co de Phone Number [facility] [place] [address] * (ABNORMAL) Differential, Automated (03/06/2022 4:29 AM EDT) Neutrophil % 90.5 % [facility] Neutrophil Absolute 4.47 1.70 - 6.10 x10(3)/mc L [facility] Lymph % 6.9 % [facility] Lymphocytes Abs 0.3(L) 0.9 - 3.2 x10(3)/mc L [facility] Monocyte % 2.2 % [facility] Monocyte Abs 0.1(L) 0.3 - 0.9 x10(3)/mc L [facility] Eos % 0.0 % [facility] Eosinophils Abs 0.0 0.0 - 0.4 x10(3)/mc L [facility] Basophil % 0.2 % [facility] Baso Absolute 0.0 0.0 - 0.1 x10(3)/mc L [facility] Immature Gran % 0.20 % [facility] Comment: Immature granulocytes(IG's)percentage and absolute count will include metamyelocytes, myelocytes, and promyelocytes. Blood smears from CBCs yielding IG's will be scanned manually for concordance. If this scan disagrees with the automated IG or if promyelocytes are noted, a manual differential will be performed. Immature Gran Absolute 0.01 0.00 - 0.04 x10(3)/[facility] Blood 03/06/2022 4:29 AM EDT 03/06/2022 4:49 AM EDT Narrative Resulting Agency Comment Spec In Lab Prakash Mendez MD HEMATOLOGY ORDERABLE S [facility] [place] [address] * (ABNORMAL) Hemogram (03/06/2022 4:29 AM EDT) White Blood Cell 4.9 4.0 - 9.5 x10(3)/[facility] Red Blood Cell 3.08(L) 4.00 - 5.21 x10(6)/[facility] Hemoglobin 10.5(L) 11.7 - 15.5 g/dL [facility] Hematocrit 31.0(L) 35.7 - 45.8 % [facility] Mean Cell Volume 100.6(H) 82.6 - 94.4 fL [facility] Mean Cell Hemoglobin 34.1(H) 27.1 - 32.0 pg [facility] Mean Cell Hemoglobin Concentration 33.9 31.7 - 35.0 g/dL [facility] Platelet 104(L) 145 - 357 x10(3)/[facility] RDW Standard Deviation 47.5(H) 37.0 - 46.0 fL [facility] RDW coefficient of variation 12.9 11.5 - 14.1 % [facility] Mean Platelet Volume 11.8 7.6 - 12.9 fL [facility] NRBC% auto 0.0 % [facility] NRBC Absolute 0.000 0.000 - 0.000 x10(3)/mc L [facility] Blood 03/06/2022 4:29 AM EDT 03/06/2022 4:49 AM EDT Narrative Resulting Agency Comment Spec In Lab Prakash Mendez MD HEMATOLOGY ORDERABLE S [facility] [place] [address] * (ABNORMAL) Basic Metabolic Panel (non-fasting) (03/06/2022 4:29 AM EDT) Glucose 140 65 - 199 mg/dL [facility] Comment:Diabetes: >=200 mg/d L plus symptoms Blood Urea Nitrogen 31(H) 8 - 18 mg/dL [facility] Creatinine 1.32(H) 0.70 - 1.20 mg/dL [facility] Sodium 136 135 - 145 mmol/L [facility] Potassium 5.3(H) 3.5 - 5.0 mmol/L [facility] Comment: Please note: ??Patients with WBC >100,000 may have falsely elevated Potassium levels. ??For accurate Potassium quantification in these patients send serum separator tube (gold top) for subsequent determinations. ??Contact the Clinical Chemistry Laboratory if there are any questions. Chloride 103 98 - 107 mmol/L [facility] Carbon Dioxide 23 22 - 31 mmol/L [facility] Anion Gap 10 5 - 15 mmol/L [facility] Calcium 9.0 8.5 - 10.5 mg/dL [facility] Est Glomerular Filtration Rate 42(L) >=60 mL/min/1. 73 m?? [facility] Comment: This patient's estimated [...] MD CHEMISTRY ORDERABLE S Performing Organization Address City/[facility]/ZIP Co de Phone Number [facility] [place] [address] * POCT Glucose (03/05/2022 12:18 PM EDT) Glucose, POC 94 65 - 199 mg/dL [facility] Comment: Supplemental ranges: <140 mg/dL before meals <180 mg/dL all other times of the day Blood 03/05/2022 12:1 8 PM EDT 03/05/2022 12:18 PM EDT Shania Will MD POINT OF CARE TEST ORDERABLES Performing Organization Address City/[facility]/ZIP Co de Phone Number [facility] [place] [address] documented in this encounter Visit Diagnoses Not [...] Unit) documented in this encounter Care Teams Ward Service Supervisor Relationship Specialty Start Date End Date Ana Her MD [address] [facility] [address] [place] [address] PCP - General 07/29/13 documented as of this encounter
--- OUTSIDE RECORDS SUMMARY | 2024-04-22 11:11 | XMS_ITS | Encounter Summary ---
Author Organization [facility] [place] [address] Care Team Providers Care Meeting Planner Name Role Phone Ana Her MD Primary Care Provider [phone] Encounter Details Date Type Department Care Team (Late st Contact Info) Description 03/09/2022 Telephone [place] [address] Prakash Mendez MD [facility] [place] [address] Social History Tobacco Use Types Packs/Day Years [...] the mobile number listed in her chart ([phone]). Her other daughter answered the phone and reported that she had just dropped her off in the Emergency Department at [facility] and parked the car. She was walking back to the building to be with her. I reassured her that going to the Emergency Department seemed like a reasonable plan. I assured her that we are always happy to see her here at [facility] anytime and that they could call back anytime with further questions or concerns. This note will be routed to the provider mentioned above. Prakash Mendez MD documented in this encounter Plan of Treatment Not on file documented as of this encounter Visit Diagnoses Not on filedocumented in this encounter Care Teams Meeting Planner Relationship Specialty Start Date End Date Ana Her MD [address] [place] [address] PCP - General 07/29/13 documented as of this encounter
--- OUTSIDE RECORDS SUMMARY | 2024-04-22 11:11 | XMS_ITS | Encounter Summary ---
Author Organization [facility] [place] [address] Care Team Providers Care Pasta Press Operator Name Role Phone Ana Her MD Primary Care Provider [phone] Encounter Details Date Type Department Care Team (Latest Contact Info) Description 04/03/2022 12:00 PM EST TH Visit (TeleHealth) [place] [address] Laura Will MD [facility] [place] [address] Status post repair of paraesophageal diaphragmatic hernia [...] status documented in this encounter Care Teams Pasta Press Operator Relationship Specialty Start Date End Date Ana Her MD [facility] [address] [place] [address] PCP - General 07/29/13 documented as of this encounter
--- OUTSIDE RECORDS SUMMARY | 2024-04-22 11:11 | XMS_ITS | Continuity of Care Document ---
Author Organization [facility], [facility] [place] [address] Care Team Providers Care Baking Powder Mixer Name Role Phone GABINODC [employer] Linux Engineer [facility] Orthopedic Surgeon [facility] FOR SLE[facility] DISORDERS Sleep Medicine [facility] Atomic Physics Professor Assessment Encounter Date Assessment Date Assessment LastModified by Organization Details LastModified Time 03/04/2024 03/04/2024 The total time devoted to today's encounter, including both the ejfa-bj-ebmo time with the patient and/or family/caregi josefina and yqe-xbzg-fz-f patrick time I personally spent is 44 minutes. Not available 03/04/2024 17:47:18 Plan of Treatment Reminders Order Date Submit Date Provider Last Modified By Organization Details Last Modified Time Details Appointments Follow Up 20 2024 10:00A Allan Her Not available Not available Not available Lab BMP, serum or plasma 2023 024 [facility] (Registration ), [facility] [facility] [place], [address], 04/19/2024 11:42:49 vitamin D, 25-hydrox y, total, serum 2023 024 [facility] (Registration ), [address] [facility] [place], [address], 04/18/2024 16:09:19 HbA1c (hemoglob in A1c), blood 2023 [facility] (Registration ), [address] [place] [address] [place], [address], 04/19/2024 11:39:49 TSH, serum, reflex free T4 2023 024 [facility] (Registration ), [address] [place] [address] [place], [address], 04/19/2024 11:40:25 CBC 2023 [facility] (Registration ), [address] [place] [address] [place], [address], 04/18/2024 15:08:25 ferritin, serum or plasma 2023 [facility] (Registration ), [address] [place] [address] [place], [address], 04/19/2024 11:41:22 iron + total iron-bind ing capacity (TIBC), serum 2023 [facility] (Registration ), [address] [place] [address] [place], [address], 04/19/2024 11:43:17 Referral None recorded. Procedures None recorded. Surgeries None recorded. Imaging None recorded. Medication Orders hydromorp ricky 2 mg tablet 2023 024 [facility], [address] [place], [address], 03/04/2024 15:12:30 levothyro xine 75 mcg tablet 2023 024 [email or web address], [address] [place], [address], 03/04/2024 16:32:19 Patient TargetsNo targets recorded. Patient InstructionsNo instructions recorded. 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 None Reported. Problems Name Problem SNOMED Code Status Onset Date Resolution Date Notes Provider Name and Address Organization Details Recorded Time Osteopor otic fracture Active 2023 Zoledron ate started at time of humeral fracture 2023- MD [address], [place], [address] , [facility] 4 17:34:10 Hypothyr oidism 57630426 Active 1959 EVIE shaw, [facility] 4 10:29:59 Essentia l hyperten jason 74184033 Active 1959 EVIE shaw, [facility] 4 10:29:36 Hyperlip idemia 02827449 Active 1959 on statin MD [address], [place], [address] , [facility] 4 20:35:18 Spinal stenosis of lumbar region 38615125 Active 2012 s/p lumbar foramino parish L4 MD [address], [place], [address] , [facility] 4 20:36:41 Sleep apnea 77271143 Active 2012 on CPAP MD [address], [place], [address] , [facility] 4 20:39:31 Gastroes ophageal reflux disease without esophagi tis 053608514 Completed 195908/12/2023 Removal Reason: resolved with surgical repair of HH MD [address], [place], [address] , [facility] 4 10:41:24 Family history of malignan t neoplasm of digestiv e organ 611475158 Active [address], [place], [address] , [facility] 4 20:37:03 Paresthe samir 88854337 Completed 201412/01/2014 11/28/19 15 - Comments only - Ana Her MD - check B12 and folate Problem Code: R20.2; Problem Code Type: ICD-10; Not Available [facility] 3 05:53:48 Adult health examinat ion Active [address], [place], [address] , [facility] 4 20:33:34 Pre-surg ruben evaluati on Completed 201510/03/2015 09/03/19 16 - Comments only - Ana Her MD [...] Z01.818; Problem Code Type: ICD-10; Not Available [facility] 3 05:53:48 Localize d edema 596358285 Completed 201501/29/2016 12/13/19 16 - Comments only - Ana Her MD - and some on left as well, will check BMP. 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 Nusrat esparza for removal. Problem Code: L72.3; Problem Code Type: ICD-10; Not Available [facility] 3 05:53:49 Chronic ulcer of foot 977747027 Completed 201601/16/2017 12/18/19 17 - Comments only - Ana Her MD - Due to injury. This does appear to have some granulat ion tissue and to be healing. She is given a prescrip tion for Keflex to take only if erythema seems to be extendin g. Problem Code: L97.509; Problem Code Type: ICD-10; Not Available [facility] 3 05:53:49 Diarrhea 96995558 Completed 201602/10/2017 02/05/20 17 - Comments only - Ana Her MD - Persiste nt over several months, we will collect stool for C. difficil e, Giardia, culture, and lactofer rin Problem Code: R19.7; Problem Code Type: ICD-10; MD [address], [place], [address] , [facility] 4 21:03:03 Polyp of cervix 08673014 Active 2016 EVIE shaw, [place] - [facility]. 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 6 mm PT1NO E2P2 poistive , HER2 negative MD [address], [place], [address] , [facility] 4 20:38:49 Pain in left lower limb 128167022 Active 2016 EVIE shaw, [facility]. 4 10:32:00 Pain in thoracic spine 272895052 Active 2016 EVIE shaw, [facility]. 4 10:32:06 [facility] 32657227 [facility] 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 4 14:36:02 Tachycar lea 3948345 Completed 201811/25/2018 Problem Code: R00.0; Problem Code Type: ICD-10; Not Available [facility] 3 05:53:51 Pre-surg ruben evaluati on Completed 201811/25/2018 Problem Code: Z01.818; Problem Code Type: ICD-10; Not Available [facility] 3 05:53:51 Iron deficien cy anemia 31010422 Active 2019 elevated MCV: normal B12 2021, normal folate 2018 IV iron 2023 EGD 01/2022 paraesop hageal hernia (since repaired ) colo 03/2017 normal ANA HER MD [address], [place], [address] , [facility] 4 11:44:45 Lumbago with sciatica 891859728 Completed 201903/16/2020 02/24/20 20 - Comments only - Vy Pinon SALES ADMINISTRATOR - Likely aggravat ed by increase d [...] M54.40; Problem Code Type: ICD-10; Not Available [facility] 3 05:53:52 Right side sciatica 02425556748 9101 Active 2019 EVIE shaw, [facility] 4 10:33:09 Left side sciatica 38956122034 9104 Active [address], [place], [address] , [facility] 4 17:20:20 Diaphrag matic hernia 79127494 Completed 202108/11/2023 Removal Reason: s/p repair MD [address], [place], [address] , [facility] 4 20:50:39 History of SARS-CoV -2 58732980333 1869244 Completed 202104/04/2022 03/21/20 22 - Comments only - Ana Her MD - testing is negative today in the office. Still some fatigue but otherwis e recoveri ng. Did get MAB. Already had covid bivalent booster prior to illness Problem Code: Z86.16; Problem Code Type: ICD-10; Not Available [facility] 3 05:53:53 Diarrhea 31152382 Completed 202104/18/2022 Problem Code: R19.7; Problem Code Type: ICD-10; MD [address], [place] [address] , [facility] 4 21:03:02 Screenin g mammogra phy Completed 202208/11/[address], [place] [address] , [facility] 4 20:36:56 Carpal tunnel syndrome of left wrist 48080579257 9102 Completed 202201/23/2023 Problem Code: G56.02; Problem Code Type: ICD-10; Not Available [facility] 4 05:37:46 Diarrhea 15716381 Active 2022 started colestip ol 01/[address], [place] [address] , [facility] 4 21:03:02 Carpal tunnel syndrome of right wrist 81628957783 9108 Completed 201803/19/2020 Problem Code: G56.01; Problem Code Type: ICD-10; Not Available [facility] 3 05:53:55 Pain of left knee joint 88285550428 4107 Completed 202107/30/2022 Problem Code: M25.562; Problem Code Type: ICD-10; Not Available [facility] 3 05:53:55 Hypersom korina 15879661 Completed 201311/27/2014 Problem Code: 780.54; Problem Code Type: ICD-9; Not Available [facility] 3 05:53:56 Screenin g for disorder Completed 201909/11/2021 Problem Code: Z13.9; Problem Code Type: ICD-10; Not Available [facility] 3 05:53:56 Anemia 879364624 Completed 201903/19/2020 Problem Code: D64.9; Problem Code Type: ICD-10; Not Available [facility] 3 05:53:56 Long-ter m current use of anticoag ulant 578142843 Completed 201709/01/2018 Problem Code: Z79.01; Problem Code Type: ICD-10; Not Available [facility] 3 05:53:57 Chronic rhinitis 56054926 Completed 202108/12/2021 Problem Code: J31.0; Problem Code Type: ICD-10; Not Available [facility] 3 05:53:57 Impaired fasting glycemia 170026315 Completed 201401/28/2023 Not Available [facility] 3 05:53:57 Fatigue 62210942 Completed 201903/19/2020 Problem Code: R53.83; Problem Code Type: ICD-10; Not Available [facility] 3 05:53:58 Upper respirat ory tract infectio n caused by Influenz a A 72699795258 9104 Completed 201707/02/2017 Problem Code: J09.x2; Problem Code Type: ICD-10; Not Available [facility] 3 05:53:59 Diarrhea 37094858 Completed 201709/01/2018 ANA HER MD [address], [place], [address] , [facility]. 4 21:03:02 Acute upper respirat ory infectio n 42688999 Completed 202108/26/2021 Problem Code: J06.9; Problem Code Type: ICD-10; Not Available [facility] 3 05:53:59 Pain in right foot 76195920364 9107 Completed 202207/30/2022 Problem Code: M79.671; Problem Code Type: ICD-10; Not Available [facility] 3 05:54:00 Breast composit ion 809468729 Completed 201601/28/2023 Not Available [facility] 3 05:54:00 Changes in skin texture 871650497 Completed 202207/30/2022 Problem Code: R23.4; Problem Code Type: ICD-10; Not Available [facility] 3 05:54:01 Spasm 99499034 Completed 201603/23/2017 Problem Code: R25.2; Problem Code Type: ICD-10; EVIE RUFUS [facility], [facility] 4 10:33:28 Hyperten sive disorder 42226282 Completed 11/28/19 15 - Comments only - Ana Her MD - [facility] ed, no change in medicati ons Not Available [facility] 3 05:54:03 Arthralg ia of the ankle and/or foot 540352454 Completed 201501/30/2016 Problem Code: M25.571; Problem Code Type: ICD-10; Not Available [facility] 3 05:54:03 Dyspnea 551334566 Completed 201903/19/2020 Problem Code: R06.02; Problem Code Type: ICD-10; Danica Felix colin, [facility] 4 14:39:47 Trigger finger of right hand 18312013204 747435 Completed 201803/19/2020 Problem Code: M65.341; Problem Code Type: ICD-10; Not Available [facility] 3 05:54:06 Cough 54696064 Completed 202108/12/2021 Problem Code: R05.1; Problem Code Type: ICD-10; Not Available [facility] 3 05:54:06 At risk - finding 979601895 Completed 201811/11/2018 Problem Code: Z91.89; Problem Code Type: ICD-10; Not Available [facility] 3 05:54:06 Cough 14840953 Completed 201706/15/2017 Problem Code: R05; Problem Code Type: ICD-10; Not Available [facility] 3 05:54:07 Preopera tive cardiova scular examinat ion Completed 202112/18/2021 Problem Code: Z01.810; Problem Code Type: ICD-10; Not Available [facility] 3 05:54:08 Arterial bruit 19278033 Completed 202109/11/2021 Not Available [facility] 3 05:54:08 Gastroes ophageal reflux disease 650162389 Completed Not Available [facility] 3 05:54:09 Imaging of musculos keletal system abnormal 626417191 Completed 201603/23/2017 Problem Code: R93.7; Problem Code Type: ICD-10; Not Available [facility] 3 05:54:10 Blood glucose outside referenc e range 241166932 Completed 201503/20/2016 Problem Code: R73.09; Problem Code Type: ICD-10; Not Available [facility] 3 05:54:10 Abdomina l aortic aneurysm 346238078 Completed 195912/04/2014 Not Available [facility] 3 05:54:11 Lung field abnormal 208136896 Completed 202109/11/2021 Problem Code: R91.8; Problem Code Type: ICD-10; Not Available [facility] 3 05:54:11 Ingrowin g nail 678981853 Completed 201503/23/2017 Problem Code: L60.0; Problem Code Type: ICD-10; Not Available [facility] 3 05:54:11 Hypokale karyn 67455053 Completed 201504/17/2016 Problem Code: E87.6; Problem Code Type: ICD-10; Not Available [facility] 3 05:54:12 Spasm 84142674 Completed 202201/23/2023 Problem Code: M62.838; Problem Code Type: ICD-10; EVIE shaw [facility] 4 10:33:28 Aneurysm of ascendin g aorta 040937970 Active [address], [place] [address] , [facility] 4 19:24:51 Bicuspid aortic valve 49152343 Active 2023 severe by ECHO 07/[address], [place] [address] , [facility] 4 19:33:10 Osteopen ia 891125760 Active 2023 EVIE shaw, [facility] 4 10:28:13 Venous stasis 39444504 Active 2023 EVIE shaw, [facility] 4 10:29:14 Chronic kidney disease 618977924 Active 2017 Stage 3bA1v eGFR 42-[address], [place] [address] , [facility] 4 20:49:29 Dyspnea on exertion 05883067 Active 2018 Danica shaw, [facility] 4 14:39:44 Hiatal hernia 31048184 Completed 202108/11/2023 lap repair MD [address], [facility] [address] , [facility] 4 20:51:15 Edema of lower extremit y 741629176 Active [address], [facility] [address] , [facility] 4 20:55:49 Atrial fibrilla tion 39121955 Active 2016 s/p pulmonoa ry vein isolatio n 05/2018, chronic anticoag ulation with Xarelto MD [address], [address] [place] [address] 4 09:14:08 Obesity 922125377 Active [address], [address] 4 09:26:22 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 MD [address], [address] 4 09:13:49 Swelling of bilatera l lower limbs 068539066 Active [address], [address] 14:35:13 Problem Notes None recorded. Procedures Surgical History Date Name Laterality Status Provider Name and Address Organization Details Recorded Time 10/26/19 cardiac pacemaker procedure completed MD [address], [address] 03/16/2024 16:33:27 10/20/19 24 transcatheter aortic valve implantation completed MD [address], [address] 03/16/2024 16:32:53 Imaging Results None recorded. Procedure Notes None recorded. Medical Equipment None Reported. Allergies Allergen ID Allergen Name Allergen Category Reaction Reaction Severity Criticality Documentation Date Start Date Code Code System Note Provider Name and Address Organization Details Recorded Time 86824 amlodipin e medicatio n swelling severe high 11/18/2023 52660 RxNorm Shaneka Herrera MA null, [facility] 13:47:28 Medications Name Sig Start Date [...] 1 tab by mouth daily 06/02 completed [facility] Not Available Not Available Not Available [...] as needed for spasms 10/15 completed [facility] Not Available Not Available Not Available [...] 1 tab by mouth daily 2013 active [facility] [employer] [facility] [facility] Not Available Not Available Not Available gabapenti n 100 mg capsule Take 1 cap by mouth three times daily 2015 active Not Available Not Available Not Avai lable metoprolo l succinate ER 25 mg tablet,ex tended release 24 hr Take 1 tab by mouth daily 2017 active [employer] Not Available Not Available Not Available [...] . Not Available Not Available Not Available [employer] Verio Flex Meter 02/22 completed Tiki gave [...] Organization Details Last Updated DateTime 164.34 cm 29.1 kg/m2 78649.4 8 g 97.7 [degF] 96 % 96 % 104 /min 18 /min 120 mm[Hg] 74 mm[Hg] KRYSTAL SKELTON LPN [facility] 14:18:40 Social History Question Answer Notes LastModified by Organizat ion Details LastModified Time Tobacco Smoking Status Never Smoker KRYSTAL SKELTON LPN [facility] 08/12/2023 07:44:55 Date Of Most Recent [...] And Wanted Help? (For Example, If You [place] Very Nervous, Lonely, Or Blue; Got Sick [...] LastModified Time Father Family history of stroke 70 Not available 2022 04:00:48 Mother Family history of heart failure lin Not available 2022 04:00:48 Notes:*Problem: Mother: Dece [...] Details Recorded Time Pneumococcal conjugate PCV20, polysaccharide IKV208 conjugate, adjuvant, PF 4 completed MD [address], [address] 08/12/2023 11:52:18 COVID-19, mRNA, LNP-S, PF, vanda-sucrose, 30 mcg/0.3 mL 4 completed MD [address], [address] 08/12/2023 11:52:18 COVID-19, mRNA, LNP-S, PF, vanda-sucrose, 30 mcg/0.3 mL 4 completed MD [address], [address] 03/04/2024 15:04:49 Tdap 1 completed Not Available [facility] 03/13/2023 06:18:37 Tdap 1 completed Not Available [facility] 03/13/2023 06:18:37 zoster live 5 completed Not Available [facility] 03/13/2023 06:18:37 Influenza, high-dose, trivalent, PF 8 completed Not Available [facility] 03/13/2023 06:18:38 Influenza, split virus, trivalent, preservative 6 completed Not Available [facility] 03/13/2023 06:18:38 Pneumococcal Conjugate, unspecified formulation 5 completed Not Available [facility] 03/13/2023 06:18:38 Influenza, split virus, quadrivalent, preservative 7 completed Not Available [facility] 03/13/2023 06:18:38 Influenza, high-dose, quadrivalent, PF 2 completed Not Available [facility] 03/13/2023 06:18:38 Influenza, high-dose, quadrivalent, PF 1 completed Not Available [facility] 03/13/2023 06:18:38 Influenza, high-dose, quadrivalent, PF 0 completed Not Available [facility] 03/13/2023 06:18:38 COVID-19, mRNA, LNP-S, PF, 100 mcg/0.5mL dose or 50 mcg/0.25mL dose 1 completed Not Available [facility] 03/13/2023 06:18:38 COVID-19, mRNA, LNP-S, PF, 100 mcg/0.5mL dose or 50 mcg/0.25mL dose 1 completed Not Available [facility] 03/13/2023 06:18:39 COVID-19, mRNA, LNP-S, PF, 100 mcg/0.5mL dose or 50 mcg/0.25mL dose 1 completed Not Available [facility] 03/13/2023 06:18:39 COVID-19, mRNA, LNP-S, bivalent, PF, 30 mcg/0.3 mL dose 2 completed Not Available [facility] 03/13/2023 06:18:39 pneumococcal polysaccharide PPV23 1 completed Not Available [facility] 03/13/2023 06:18:39 influenza, unspecified formulation 6 completed Not Available [facility] 03/13/2023 06:18:39 influenza, unspecified formulation 4 completed Not Available [facility] 03/13/2023 06:18:39 Influenza, high-dose, quadrivalent, PF 3 completed Not Available [facility] 05/15/2023 05:33:16 Past Encounters Encounter ID Performer Location Encounter Start Date Encounter Closed Date Diagnosis/Indication Diagnosis SNOMED-CT Code Diagnosis ICD10 Code [id number] ANA HER MD [place] [address] [place] [address] 03/04/2024 14:02:04 03/04/2024 15:12:46 Active or passive immunization 991664627 Z23 Hypothyroidism 14287787 E03.9 Osteoporotic fracture 46 629987 M80.00XD Iron defic iency anemia 20331649 D50.9 Chronic ki dney disease 350678637 N18.9 Prediabetes 320031182 R7 3.03 Health Concerns Section Related Observation LastModified by Organization Detai ls LastModified Time None Recorded Concern Status LastModified by Organization Details LastModified Time None Recorded Payers Encounter Date Sequence Insurance Name Policy Number Policy Palacio Covered Member ID Palacio Member ID Guarantor Name 03/04/2024 1 [place] [employer] Digna Olson [id number] Digna Christiansensoc[employer] 03/04/2024 2 [place] [facility] [id number] Digna Christiansensocorro [id number] Digna Lemus Whitney Notes Date Note Type Note Provider Name and Address Organization Details Recorded Time 03/04/2024 text/html Pt was [facility]10[facility]12[facility]16 with fall and humeral fracture. then discharged to [facility] and d/c 02/18. She is using [...] a bit less SOB since the TAVR. ANA HER MD [address], [place], [address], [facility]. 03/04/2024 17:49:41 OBGyn Episode No OBEpisode recorded.
--- OUTSIDE RECORDS SUMMARY | 2024-04-22 11:11 | XMS_ITS | Encounter Summary ---
Author Organization [facility] [place] [address] Care Team Providers Care Carbide Grinder Name Role Phone Ana Her MD Primary Care Provider [phone] Encounter Details Date Type Department Care Team (Late st Contact Info) Description 03/10/2022 1:35 AM EST Ancillary Procedure Radiology Library at [facility] [place] [address] Ana Her MD [address] [place] [address] [facility] [address] [place], [place] [id number] Social History Tobacco Use Types Packs/Day Years [...] CT Chest (03/10/2022 1:31 AM EST) Narrative [facility] - 03/10/2022 1:31 AM EST This exam is auto-finalizing. It's purpose is for storage only. Ana Her MD IM FILM LIBRARY ORD ERABLES [place], [place] documented in this encounter Visit Diagnoses Not on filedocumented in this encounter Care Teams Carbide Grinder Relationship Specialty Start Date End Date Ana Her MD [facility] JAY HOGAN [facility] [address] [place] [address] PCP - General 07/29/13 documented as of this encounter
--- OUTSIDE RECORDS SUMMARY | 2024-04-22 11:11 | XMS_ITS | Encounter Summary ---
[place] [address] Care Team Providers Care Liquor Runner Name Role Phone Ana Her MD Primary Care Provider [phone] Reason for Visit * Auth/Cert Specialty Diagnoses / Procedures Referred By Christiano hackett Referred To Contact Diagnoses S/P repair of paraesophageal hernia Post-Op monitoring Procedures PRO LAPARSCOPY REPAIR PARAESOPHAGEAL HERNIA INCL FUNDOPLASTY W/O MESH LAPAROSCOPIC PARAESOPHAGEAL HERNIA REPAIR W/FUNDOPLASTY, W/O MESH (WRVU 26.6) MODIFIER TOUPET FUNDOPLASTY Shania Will MD [facility] [place] [address] [facility] Referral ID Status Reason Start Date Expiration Date Visits Re quested Visits Authorized [id number] 1 1 Encounter Details Date Type Department Care Team (Latest Contact Info) Description 03/05/2022 11:55 AM EDT - 03/07/2022 10:00 AM EDT Hospital Encounter [place] [id number] Shania Will MD [facility] [place] [address] Discharge Disposition: Home Social History Tobacco Use [...] of left breast of female, estrogen receptor [id number], Z17.0 ??? Anemia D64.9 ??? Aortic valve [...] Per chart review, her creatinine levels in [id number] ranged from 0.87-1.50 indicative of possible undiagnosed [...] Will MD General Surgery at [facility] Arrive at: [facility] [facility] Area [phone] Instructions Given to Patient at Discharge: Patient [...] hours please call the Surgery Clinic at [phone] before 5 PM on weekdays. For questions after hours and on weekends please call the hospital ride operator at [phone] and ask for the General Surgery resident target aircraft controller. They may not be familiar with your [...] post Sly diet, as instructed by the manager php in the hospital for a period of [...] renal function. Please call the clinic at [phone] to confirm or reschedule. Future Appointments Date Time Provider Department Center 04/03/2022 12:00 PM Shania Will MD [facility]G [facility] General Instructions None Future Appointments and Orders Future Appointments and Orders Future Appointments Provider Department Dept Phone 04/03/2022 12:00 PM Shania Will MD General Surgery at [facility] Arrive at: [employer] [facility] Area Signed: Shena Harden MD 03/07/22 7:18 AM [facility] [place] [address] Primary [place] Physician: MD Geovany David DR [facility] [id number] documented in this encounter Discharge Instructions * [...] hours please call the Surgery Clinic at [phone] before 5 PM on weekdays. For questions after hours and on weekends please call the hospital ride operator at [phone] and ask for the General Surgery resident target aircraft controller. They may not be familiar with your [...] post Sly diet, as instructed by the manager php in the hospital for a period of [...] renal function. Please call the clinic at [phone] to confirm or reschedule. Future Appointments Date Time Provider Department Center 04/03/2022 12:00 PM Shania Will MD [facility] documented in this encounter Medications at Time [...] Ocampo RN - 03/07/2022 10:25 AM EDT [facility] Short Stay Unit Discharge Note [...] Sly Diet Education to pt Digna Olson. Needle Punch Machine Operator metwith pt at bedside to deliver full [...] she is noticing some overall improvement post op.Needle Punch Machine Operator took note of this and encouraged the [...] Department contact information provided. Pt appreciate of contract writer's time. Nutrition to follow as needed. [...] Perez MD 03/05/2022 Minimally Invasive Surgery Pager #[phone] * Lorrie Slater RN - 03/05/2022 6:46 [...] ?? She is followed by cardiology [place] [facility], and is on xarelto. ?? [...] of left breast of female, estrogen receptor [id number], Z17.0 ??? Anemia D64.9 ??? Aortic valve [...] 6.43) performed by Malika Chen MD at [facility] MAIN OR ??? PRO INTRAOP SENTINEL LYMPH ID W/DYE INJECTION Left 03/30/2017 ?? INTRAOPERATIVE ID (MAPPING) SENTINEL LYMPH NODE,INCLUDES INJECTION (WRVU 2.5) performed by Malika Chen MD at [facility] MAIN OR ??? PRO MASTECTOMY PARTIAL Left 03/30/2017 ?? MASTECTOMY PARTIAL (WRVU 10.13) performed by Malika Chen MD at [facility] MAIN OR ?? Cholecystectomy ?? [...] Operative Note Patient Name: Digna Olson : [id number] MR#: [id number] Case Date: 03/05/2022 Surgeon: Surgeon(s) and Role: [...] - 03/05/2022 2:32 PM EDT [facility] Operative Note Patient Name: Digna Olson : [id number] MR#: [id number] Case Date: 03/05/2022 Surgeon: Surgeon(s) and Role: [...] Repair Paraesophageal Hernia Incl Fundoplasty W/O Mesh ([id number]) 03/05/2022 1:58 PM EDT Paraesophageal Hernia POCT GLUCOSE Routine 03/05/2022 12:18 PM EDT LAPAROSCOPIC PARAESOPHAGEAL HERNIA REPAIR W FUNDOPLASTY, W/O MESH Routine 03/05/2022 12:02 PM EDT documented in this encounter Results * (ABNORMAL) Differential, Automated (03/07/2022 5:08 AM EDT) Neutrophil % 80.0 % [facility] Neutrophil Absolute 5.30 1.70 - 6.10 x10(3)/mc L [facility] Lymph % 12.1 % [facility] Lymphocytes Abs 0.8(L) 0.9 - 3.2 x10(3)/mc L [facility] Monocyte % 7.6 % [facility] Monocyte Abs 0.5 0.3 - 0.9 x10(3)/mc L [facility] Eos % 0.0 % [facility] Eosinophils Abs 0.0 0.0 - 0.4 x10(3)/mc L [facility] Basophil % 0.0 % [facility] Baso Absolute 0.0 0.0 - 0.1 x10(3)/[facility] Immature Gran % 0.30 % [facility] Comment: Immature granulocytes(IG's)percentage and absolute count will include metamyelocytes, myelocytes, and promyelocytes. Blood smears from CBCs yielding IG's will be scanned manually for concordance. If this scan disagrees with the automated IG or if promyelocytes are noted, a manual differential will be performed. Immature Gran Absolute 0.02 0.00 - 0.04 x10(3)/[facility]ORY Blood 03/07/2022 5:08 AM EDT 03/07/2022 5:19 AM EDT Narrative Resulting Agency Comment Spec In Lab Nino Levy MD HEMATOLOGY ORDERABLE S Performing Organization Address City/State/[facility] Co de Phone Number [facility] [place] [address] * (ABNORMAL) Hemogram (03/07/2022 5:08 AM EDT) White Blood Cell 6.6 4.0 - 9.5 x10(3)/[facility]ATORY Red Blood Cell 3.16(L) 4.00 - 5.21 x10(6)/[facility] Hemoglobin 10.7(L) 11.7 - 15.5 g/dL [facility] Hematocrit 31.7(L) 35.7 - 45.8 % [facility] Mean Cell Volume 100.3(H) 82.6 - 94.4 fL [facility] Mean Cell Hemoglobin 33.9(H) 27.1 - 32.0 pg [facility] Mean Cell Hemoglobin Concentration 33.8 31.7 - 35.0 g/dL [facility] Platelet 110(L) 145 - 357 x10(3)/[facility] RDW Standard Deviation 47.5(H) 37.0 - 46.0 fL [facility] RDW coefficient of variation 12.9 11.5 - 14.1 % [facility] Mean Platelet Volume 11.7 7.6 - 12.9 fL [facility] NRBC% auto 0.0 % [facility] NRBC Absolute 0.000 0.000 - 0.000 x10(3)/mc L [facility] Blood 03/07/2022 5:08 AM EDT 03/07/2022 5:19 AM EDT Narrative Resulting Agency Comment Spec In Lab Nino Levy MD HEMATOLOGY ORDERABLE S [facility] [place] [address] * Phosphorus (03/07/2022 5:08 AM EDT) Phosphorus 2.7 2.5 - 4.5 mg/dL [facility] Blood 03/07/2022 5:08 AM EDT 03/07/2022 5:19 AM EDT Narrative Resulting Agency Comment Spec In Lab Shania Will MD CHEMISTRY ORDERABLE S Performing Organization Address City/[facility]/ZIP Co de Phone Number [facility] [place] [address] * Magnesium (03/07/2022 5:08 AM EDT) Magnesium 0.89 0.69 - 1.07 mmol/L [facility] Blood 03/07/2022 5:08 AM EDT 03/07/2022 5:19 AM EDT Narrative Resulting Agency Comment Spec In Lab Shania Will MD CHEMISTRY ORDERABLE S [facility] [place] [address] * (ABNORMAL) Basic Metabolic Panel (non-fasting) (03/07/2022 5:08 AM EDT) Glucose 111 65 - 199 mg/dL [facility] Comment:Diabetes: >=200 mg/d L plus symptoms Blood Urea Nitrogen 22(H) 8 - 18 mg/dL [facility] Creatinine 0.93 0.70 - 1.20 mg/dL [facility] Sodium 131(L) 135 - 145 mmol/L [facility] Potassium 4.5 3.5 - 5.0 mmol/L [facility] Comment: Please note: ??Patients with WBC >100,000 may have falsely elevated Potassium levels. ??For accurate Potassium quantification in these patients send serum separator tube (gold top) for subsequent determinations. ??Contact the Clinical Chemistry Laboratory if there are any questions. Chloride 100 98 - 107 mmol/L [facility] Carbon Dioxide 22 22 - 31 mmol/L [facility] Anion Gap 9 5 - 15 mmol/L [facility] Calcium 9.2 8.5 - 10.5 mg/dL [facility] Est Glomerular Filtration Rate 64 >=60 mL/min/1. 73 m?? [facility] Comment: This patient's estimated [...] Lab Shania Will [place] [address] * (ABNORMAL) Differential, Automated (03/06/2022 10:15 AM EDT) Pathologist [facility] Neutrophil % 90.7 % [facility] Neutrophil Absolute 5.79 1.70 - 6.10 x10(3)/ L [facility] Lymph % 5.0 % [facility] Lymphocytes Abs 0.3(L) 0.9 - 3.2 x10(3)/ L [facility] Monocyte % 3.8 % [facility] Monocyte Abs 0.2(L) 0.3 - 0.9 x10(3)/[facility] Eos % 0.0 % [facility] Eosinophils Abs 0.0 0.0 - 0.4 x10(3)/[facility] Basophil % 0.0 % [facility] Baso Absolute 0.0 0.0 - 0.1 x10(3)/ L [facility] Immature Gran % 0.50 % [facility] Comment: Immature granulocytes(IG's)percentage and absolute count will include metamyelocytes, myelocytes, and promyelocytes. Blood smears from CBCs yielding IG's will be scanned manually for concordance. If this scan disagrees with the automated IG or if promyelocytes are noted, a manual differential will be performed. Immature Gran Absolute 0.03 0.00 - 0.04 x10(3)/ L [facility] Blood 03/06/2022 10:1 5 AM EDT 03/06/2022 10:21 AM EDT Narrative Resulting Agency Comment Spec In Lab Maryam [place] [address] * (ABNORMAL) Hemogram (03/06/2022 10:15 AM EDT) White Blood Cell 6.4 4.0 - 9.5 x10(3)/mc L [facility] Red Blood Cell 3.07(L) 4.00 - 5.21 x10(6)/mc L [facility] Hemoglobin 10.5(L) 11.7 - 15.5 g/dL [facility] Hematocrit 31.1(L) 35.7 - 45.8 % [facility] Mean Cell Volume 101.3(H) 82.6 - 94.4 fL [facility] Mean Cell Hemoglobin 34.2(H) 27.1 - 32.0 pg [facility] Mean Cell Hemoglobin Concentration 33.8 31.7 - 35.0 g/dL [facility] Platelet 111(L) 145 - 357 x10(3)/ L [facility] RDW Standard Deviation 47.2(H) 37.0 - 46.0 fL [facility] RDW coefficient of variation 12.9 11.5 - 14.1 % [facility] Mean Platelet Volume 11.5 7.6 - 12.9 fL [facility] NRBC% auto 0.0 % [facility] NRBC Absolute 0.000 0.000 - 0.000 x10(3)/mc L [facility] Blood 03/06/2022 10:1 5 AM EDT 03/06/2022 10:21 AM EDT Narrative Resulting Agency Comment Spec In Lab Maryam MUELLER HEMATOLOGY ORDERABL ES [facility] [place] [address] * Phosphorus (03/06/2022 10:15 AM EDT) Phosphorus 3.3 2.5 - 4.5 mg/dL [facility] Blood 03/06/2022 10:1 5 AM EDT 03/06/2022 10:21 AM EDT Narrative Resulting Agency Comment Spec In Lab Shania Will MD CHEMISTRY ORDERABLE S Performing Organization Address City/[facility]/ZIP Co de Phone Number [facility] [place] [address] * Magnesium (03/06/2022 10:15 AM EDT) Magnesium 0.69 0.69 - 1.07 mmol/L [facility] Blood 03/06/2022 10:1 5 AM EDT 03/06/2022 10:21 AM EDT Narrative Resulting Agency Comment Spec In Lab Shania Will MD CHEMISTRY ORDERABLE S Performing Organization Address [facility] Co de Phone Number [facility] [place] [address] * (ABNORMAL) Basic Metabolic Panel (non-fasting) (03/06/2022 10:15 AM EDT) Pathologist [facility] Glucose 155 65 - 199 mg/dL [facility] Comment:Diabetes: >=200 mg/d L plus symptoms Blood Urea Nitrogen 29(H) 8 - 18 mg/dL [facility] Creatinine 1.25(H) 0.70 - 1.20 mg/dL [facility] Sodium 134(L) 135 - 145 mmol/L [facility] Potassium 4.8 3.5 - 5.0 mmol/L [facility] Comment: Please note: ??Patients with WBC >100,000 may have falsely elevated Potassium levels. ??For accurate Potassium quantification in these patients send serum separator tube (gold top) for subsequent determinations. ??Contact the Clinical Chemistry Laboratory if there are any questions. Chloride 101 98 - 107 mmol/L [facility] Carbon Dioxide 23 22 - 31 mmol/L [facility] Anion Gap 10 5 - 15 mmol/L [facility] Calcium 8.9 8.5 - 10.5 mg/dL [facility] Est Glomerular Filtration Rate 45(L) >=60 mL/min/1. 73 m?? [facility] Comment: This patient's estimated [...] MD CHEMISTRY ORDERABLE S Performing Organization Address City/State/[facility] Co de Phone Number [facility] [place] [address] * (ABNORMAL) Differential, Automated (03/06/2022 4:29 AM EDT) Neutrophil % 90.5 % [facility] Neutrophil Absolute 4.47 1.70 - 6.10 x10(3)/mc L [facility] Lymph % 6.9 % [facility] Lymphocytes Abs 0.3(L) 0.9 - 3.2 x10(3)/mc L [facility] Monocyte % 2.2 % [facility] Monocyte Abs 0.1(L) 0.3 - 0.9 x10(3)/mc L [facility] Eos % 0.0 % [facility] Eosinophils Abs 0.0 0.0 - 0.4 x10(3)/mc L [facility] Basophil % 0.2 % [facility] Baso Absolute 0.0 0.0 - 0.1 x10(3)/mc L [facility] Immature Gran % 0.20 % [facility] Comment: Immature granulocytes(IG's)percentage and absolute count will include metamyelocytes, myelocytes, and promyelocytes. Blood smears from CBCs yielding IG's will be scanned manually for concordance. If this scan disagrees with the automated IG or if promyelocytes are noted, a manual differential will be performed. Immature Gran Absolute 0.01 0.00 - 0.04 x10(3)/ L [facility] Blood 03/06/2022 4:29 AM EDT 03/06/2022 4:49 AM EDT Narrative Resulting Agency Comment Spec In Lab Prakash Mendez MD HEMATOLOGY ORDERABLE S [facility] [place] [address] * (ABNORMAL) Hemogram (03/06/2022 4:29 AM EDT) White Blood Cell 4.9 4.0 - 9.5 x10(3)/ L [facility] Red Blood Cell 3.08(L) 4.00 - 5.21 x10(6)/ L [facility] Hemoglobin 10.5(L) 11.7 - 15.5 g/dL [facility] Hematocrit 31.0(L) 35.7 - 45.8 % [facility] Mean Cell Volume 100.6(H) 82.6 - 94.4 fL [facility] Mean Cell Hemoglobin 34.1(H) 27.1 - 32.0 pg [facility] Mean Cell Hemoglobin Concentration 33.9 31.7 - 35.0 g/dL [facility] Platelet 104(L) 145 - 357 x10(3)/ L [facility] RDW Standard Deviation 47.5(H) 37.0 - 46.0 fL [facility] RDW coefficient of variation 12.9 11.5 - 14.1 % [facility] Mean Platelet Volume 11.8 7.6 - 12.9 fL [facility] NRBC% auto 0.0 % [facility] NRBC Absolute 0.000 0.000 - 0.000 x10(3)/mc L [facility] Blood 03/06/2022 4:29 AM EDT 03/06/2022 4:49 AM EDT Narrative Resulting Agency Comment Spec In Lab Prakash Mendez MD HEMATOLOGY ORDERABLE S [facility] [address] * (ABNORMAL) Basic Metabolic Panel (non-fasting) (03/06/2022 4:29 AM EDT) Glucose 140 65 - 199 mg/dL [facility] Comment:Diabetes: >=200 mg/d L plus symptoms Blood Urea Nitrogen 31(H) 8 - 18 mg/dL [facility] Creatinine 1.32(H) 0.70 - 1.20 mg/dL [facility] Sodium 136 135 - 145 mmol/L [facility] Potassium 5.3(H) 3.5 - 5.0 mmol/L [facility] Comment: Please note: ??Patients with WBC >100,000 may have falsely elevated Potassium levels. ??For accurate Potassium quantification in these patients send serum separator tube (gold top) for subsequent determinations. ??Contact the Clinical Chemistry Laboratory if there are any questions. Chloride 103 98 - 107 mmol/L [facility] Carbon Dioxide 23 22 - 31 mmol/L [facility] Anion Gap 10 5 - 15 mmol/L [facility] Calcium 9.0 8.5 - 10.5 mg/dL [facility] Est Glomerular Filtration Rate 42(L) >=60 mL/min/1. 73 m?? [facility] Comment: This patient's estimated [...] Lab Shania Will MD CHEMISTRY ORDERABLE S [facility] [place] [address] * POCT Glucose (03/05/2022 12:18 PM EDT) Glucose, POC 94 65 - 199 mg/dL [facility] Comment: Supplemental ranges: <140 mg/dL before meals <180 mg/dL all other times of the day Blood 03/05/2022 12:1 8 PM EDT 03/05/2022 12:18 PM EDT Shania Will MD POINT OF CARE TEST ORDERABLES Performing Organization Address City/[facility]/ZIP Co de Phone Number [facility] [place] [address] documented in this encounter Visit Diagnoses Diagnosis [...] Unit) documented in this encounter Care Teams Liquor Runner Relationship Specialty Start Date End Date Ana Her MD Geov[address] [place] [address] PCP - General 07/29/13 documented as of this encounter
--- OUTSIDE RECORDS SUMMARY | 2024-04-22 11:11 | XMS_ITS | Continuity of Care Document ---
Author Organization [place] [facility] [place] [address] Care Team Providers Care Fishing Manager Name Role Phone [facility] Attendant [facility] Orthopedic Surgeon [phone] [facility] Sleep Medicine [facility] Blood Bank Specialist Assessment No assessment recorded. Plan of Treatment Reminders Order Date Submit Date Provider Last Modified By Organization Details Last Modified Time Details Appointments Follow Up 20 2024 10:00A M Ana Wade Not available Not available Not available Lab BMP, serum or plasma 2023 024 [facility] (Registration ), [address] [place] [address] [place], [address], 04/19/2024 11:42:49 vitamin D, 25-hydrox y, total, serum 2023 024 [facility] (Registration ), [address] [place] [address] [place], [address], 04/18/2024 16:09:19 HbA1c (hemoglob in A1c), blood 2023 024 [facility] (Registration ), [address] [place] [address] [place], [address], 04/19/2024 11:39:49 TSH, serum, reflex free T4 2023 024 [facility] (Registration ), [address] [place] [address] [facility] [place], [address], 04/19/2024 11:40:25 CBC 2023 024 [facility] (Registration ), [address] [place] [address] [place], [address], 04/18/2024 15:08:25 ferritin, serum or plasma 2023 024 [facility] (Registration ), [address] [place] [address] [place], [address], 04/19/2024 11:41:22 iron + total iron-bind ing capacity (TIBC), serum 2023 024 [facility] (Registration ), [address] [place] [address] [place], [address], 04/19/2024 11:43:17 Referral None recorded. Procedures None recorded. Surgeries None recorded. Imaging None recorded. Medication Orders None recorded. Patient TargetsNo targets recorded. Patient InstructionsNo instructions recorded. 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 None Reported. Problems Name Problem SNOMED Code Status Onset Date Resolution Date Notes Provider Name and Address Organization Details Recorded Time Osteopor otic fracture Active 2023 Zoledron ate started at time of humeral fracture 2023- MD [address], [place], [address] , [facility] 4 17:34:10 Hypothyr oidism 65066964 Active 1959 EVIE shaw [facility] 4 10:29:59 Essentia l hyperten jason 51509715 Active 1959 EVIE shaw [facility] 4 10:29:36 Hyperlip idemia 62058015 Active 1959 on statin MD [address], [place], [address] , [facility] 4 20:35:18 Spinal stenosis of lumbar region 41698891 Active 2012 s/p lumbar foramino parish L4 MD [address], [place], [address] , [facility] 4 20:36:41 Sleep apnea 85097182 Active 2012 on CPAP MD [address], [facility] [address] , [facility] 4 20:39:31 Gastroes ophageal reflux disease without esophagi tis 622103257 Completed 195908/12/2023 Removal Reason: resolved with surgical repair of HH MD [address], [place], [address] , [facility] 4 10:41:24 Family history of malignan t neoplasm of digestiv e organ 009813657 Active [address], [place], [address] , [facility] 4 20:37:03 Paresthe samir 88434767 Completed 201412/01/2014 11/28/19 15 - Comments only - Ana Wdae MD - check B12 and folate Problem Code: R20.2; Problem Code Type: ICD-10; Not Available [facility] 3 05:53:48 Adult health examinat ion Active [address], [place], [address] , [facility] 4 20:33:34 Pre-surg ruben evaluati on Completed [...] Z01.818; Problem Code Type: ICD-10; Not Available [facility] 3 05:53:48 Localize d edema 675884081 Completed 201501/29/2016 12/13/19 16 - Comments only - Ana Wade MD - and some on left as well, will check BMP. 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 Nusrat esparza for removal. Problem Code: L72.3; Problem Code Type: ICD-10; Not Available [facility] 3 05:53:49 Chronic ulcer of foot 712361664 Completed 201601/16/2017 12/18/19 17 - Comments only - Ana Wade MD - Due to injury. This does appear to have some granulat ion tissue and to be healing. She is given a prescrip tion for Keflex to take only if erythema seems to be extendin g. Problem Code: L97.509; Problem Code Type: ICD-10; Not Available [facility] 3 05:53:49 Diarrhea 34870034 Completed 201602/10/2017 02/05/20 17 - Comments only - Ana Wade MD - Persiste nt over several months, we will collect stool for C. 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 6 mm PT1NO E2P2 poistive , HER2 negative MD [address], [place], [address] , [facility] 4 20:38:49 Pain in left lower limb 486130765 Active 2016 EVIE shaw, [facility]. 4 10:32:00 Pain in thoracic spine 712196552 Active 2016 EVIE shaw [facility], [facility]. 4 10:32:06 Spasm 16976798 Active 2017 EVIE shaw [facility]. 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 2018 Danica shaw, [facility] 4 14:36:02 Tachycar lea 3583772 Completed 201811/25/2018 Problem Code: R00.0; Problem Code Type: ICD-10; Not Available [facility] 3 05:53:51 Pre-surg ruben evaluati on Completed 201811/25/2018 Problem Code: Z01.818; Problem Code Type: ICD-10; Not Available [facility] 3 05:53:51 Iron deficien cy anemia 27997312 Active 2019 elevated MCV: normal B12 2021, normal folate 2018 IV iron 2023 EGD 01/2022 paraesop hageal hernia (since repaired ) colo 03/2017 normal ANA WADE MD [facility] [address], [place], [address] , [facility] 4 11:44:45 Lumbago with sciatica 730536270 Completed 201903/16/2020 02/24/20 20 - Comments only - Vy Pinon REHAB SPECIALIST - Likely aggravat ed by increase d [...] as tolerate d. Referral made to Ricardo MARQUEZ Reviewed red flags requirin g emergenc y care. Problem Code: M54.40; Problem Code Type: ICD-10; Not Available [facility] 3 05:53:52 Right side sciatica 15983523473 9101 Active 2019 EVIE shaw, [facility] 4 10:33:09 Left side sciatica 68856748890 9104 Active [address], [facility] [address] , [facility] 4 17:20:20 Diaphrag matic hernia 57801312 Completed 202108/11/2023 Removal Reason: s/p repair MD [address], [facility] [address] , [facility] 4 20:50:39 History of SARS-CoV -2 91339709964 6118228 Completed 202104/04/2022 03/21/20 22 - Comments only - Ana Wade MD - testing is negative today in the office. Still some fatigue but otherwis e recoveri ng. Did get MAB. Already had covid bivalent booster prior to illness Problem Code: Z86.16; Problem Code Type: ICD-10; Not Available [facility] 3 05:53:53 Diarrhea 20096718 Completed 202104/18/2022 Problem Code: R19.7; Problem Code Type: ICD-10; MD [address], [facility] [address] , [facility] 4 21:03:02 Radhain myla mammogra phy Completed 202208/11/[address], [facility] [address] , [facility] 4 20:36:56 Carpal tunnel syndrome of left wrist 60216614437 9102 Completed 202201/23/2023 Problem Code: G56.02; Problem Code Type: ICD-10; Not Available [facility] 4 05:37:46 Diarrhea 78369227 Active 2022 started colestip ol 01/2023 ANA WADE MD [address], [place], [address] , [facility] 4 21:03:02 Carpal tunnel syndrome of right wrist 49419141730 9108 Completed 201803/19/2020 Problem Code: G56.01; Problem Code Type: ICD-10; Not Available [facility] 3 05:53:55 Pain of left knee joint 08711434139 4107 Completed 202107/30/2022 Problem Code: M25.562; Problem Code Type: ICD-10; Not Available [facility] 3 05:53:55 Hypersom korina 01805411 Completed 201311/27/2014 Problem Code: 780.54; Problem Code Type: ICD-9; Not Available [facility] 3 05:53:56 Screenin g for disorder Completed 201909/11/2021 Problem Code: Z13.9; Problem Code Type: ICD-10; Not Available [facility] 3 05:53:56 Anemia 897440654 Completed 201903/19/2020 Problem Code: D64.9; Problem Code Type: ICD-10; Not Available [facility] 3 05:53:56 Long-ter m current use of anticoag ulant 968340085 Completed 201709/01/2018 Problem Code: Z79.01; Problem Code Type: ICD-10; Not Available [facility] 3 05:53:57 Chronic rhinitis 45999531 Completed 202108/12/2021 Problem Code: J31.0; Problem Code Type: ICD-10; Not Available [facility] 3 05:53:57 Impaired fasting glycemia 688737551 Completed 201401/28/2023 Not Available [facility] 3 05:53:57 Fatigue 15409288 Completed 201903/19/2020 Problem Code: R53.83; Problem Code Type: ICD-10; Not Available [facility] 3 05:53:58 Upper respirat ory tract infectio n caused by Influenz a A 34716744619 9104 Completed 201707/02/2017 Problem Code: J09.x2; Problem Code Type: ICD-10; Not Available [facility] 3 05:53:59 Diarrhea 39718811 Completed 201709/01/2018 ANA WADE MD [facility] [address], [place], [address] [facility] 4 21:03:02 Acute upper respirat ory infectio n 19150337 Completed 202108/26/2021 Problem Code: J06.9; Problem Code Type: ICD-10; Not Available [facility] 3 05:53:59 Pain in right foot 79304870286 9107 Completed 202207/30/2022 Problem Code: M79.671; Problem Code Type: ICD-10; Not Available [facility] 3 05:54:00 Breast composit ion 510938877 Completed 201601/28/2023 Not Available [facility] 3 05:54:00 Changes in skin texture 590873341 Completed 202207/30/2022 Problem Code: R23.4; Problem Code Type: ICD-10; Not Available [facility] 3 05:54:01 Spasm 47968438 Completed 201603/23/2017 Problem Code: R25.2; Problem Code Type: ICD-10; EVIE shaw [facility] 4 10:33:28 Hyperten sive disorder 72842149 Completed 11/28/19 15 - Comments only - Ana Wade MD - [facility] ed, no change in medicati ons Not Available [facility] 3 05:54:03 Arthralg ia of the ankle and/or foot 177552365 Completed 201501/30/2016 Problem Code: M25.571; Problem Code Type: ICD-10; Not Available [facility] 3 05:54:03 Dyspnea 493899474 Completed 201903/19/2020 Problem Code: R06.02; Problem Code Type: ICD-10; Danica Felix [facility] 4 14:39:47 Trigger finger of right hand 00305035909 588762 Completed 201803/19/2020 Problem Code: M65.341; Problem Code Type: ICD-10; Not Available [facility] 3 05:54:06 Cough 85646002 Completed 202108/12/2021 Problem Code: R05.1; Problem Code Type: ICD-10; Not Available [facility] 3 05:54:06 At risk - finding 581673060 Completed 201811/11/2018 Problem Code: Z91.89; Problem Code Type: ICD-10; Not Available [facility] 3 05:54:06 Cough 36103505 Completed 201706/15/2017 Problem Code: R05; Problem Code Type: ICD-10; Not Available [facility] 3 05:54:07 Preopera tive cardiova scular examinat ion Completed 202112/18/2021 Problem Code: Z01.810; Problem Code Type: ICD-10; Not Available [facility] 3 05:54:08 Arterial bruit 90044704 Completed 202109/11/2021 Not Available [facility] 3 05:54:08 Gastroes ophageal reflux disease 007894515 Completed Not Available [facility] 3 05:54:09 Imaging of musculos keletal system abnormal 506922265 Completed 201603/23/2017 Problem Code: R93.7; Problem Code Type: ICD-10; Not Available [facility] 3 05:54:10 Blood glucose outside referenc e range 596767472 Completed 201503/20/2016 Problem Code: R73.09; Problem Code Type: ICD-10; Not Available [facility] 3 05:54:10 Abdomina l aortic aneurysm 441218916 Completed 195912/04/2014 Not Available [facility] 3 05:54:11 Lung field abnormal 365752182 Completed 202109/11/2021 Problem Code: R91.8; Problem Code Type: ICD-10; Not Available [facility] 3 05:54:11 Ingrowin g nail 277059823 Completed 201503/23/2017 Problem Code: L60.0; Problem Code Type: ICD-10; Not Available [facility] 3 05:54:11 Hypokale karyn 86831162 Completed 201504/17/2016 Problem Code: E87.6; Problem Code Type: ICD-10; Not Available [facility] 3 05:54:12 Spasm 64289538 Completed 202201/23/2023 Problem Code: M62.838; Problem Code Type: ICD-10; EVIE shaw, [facility]. 4 10:33:28 Aneurysm of ascendin g aorta 473888527 Active 2023 ANA WADE MD [address], [place], [address] , [facility]. 4 19:24:51 Bicuspid aortic valve 38415317 Active 2023 severe by ECHO 07/2023 ANA WADE MD [address], [place], [address] , [facility]. 4 19:33:10 Osteopen ia 042166552 Active 2023 EVIE shaw, [facility]. 4 10:28:13 Venous stasis 98354050 Active 2023 EVIE shaw [facility]. 4 10:29:14 Chronic kidney disease 325865794 Active 2017 Stage 3bA1v eGFR 42-[address], [place] [address] , [facility] 4 20:49:29 Dyspnea on exertion 35578846 Active 2018 Danica shaw, [facility] 4 14:39:44 Hiatal hernia 22731013 Completed 202108/11/2023 lap repair MD [address], [place] [address] , [facility] 4 20:51:15 Edema of lower extremit y 533382536 Active [address], [place] [address] , [facility] 4 20:55:49 Atrial fibrilla tion 09110707 Active 2016 s/p pulmonoa ry vein isolatio n 05/2018, chronic anticoag ulation with Xarelto MD [address], [place] [address] , [facility] 4 09:14:08 Obesity 529251823 Active [address], [place] [address] , [facility] 4 09:26:22 Cardiac pacemake r in situ 962995436 Active 2023 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 MD [address], [place] [address] , [facility] 4 09:13:49 Swelling of bilatera l lower limbs 898688389 Active [address], [place], [address] , [facility] 14:35:13 Problem Notes None recorded. Procedures Surgical History Date Name Laterality Status Provider Name and Address Organization Details Recorded Time 10/26/19 cardiac pacemaker procedure completed MD [address], [place], [address], [facility] 03/16/2024 16:33:27 10/20/19 transcatheter aortic valve implantation completed MD [address], [facility] [address], [facility] 03/16/2024 16:32:53 Imaging Results None recorded. Procedure Notes None recorded. Medical Equipment None Reported. Allergies Allergen ID Allergen Name Allergen Category Reaction Reaction Severity Criticality Documentation Date Start Date Code Code System Note Provider Name and Address Organization Details Recorded Time 92685 amlodipin e medicatio n swelling severe high 11/18/2023 64969 RxNorm Shaneka Herrera MA [facility], [facility] 13:47:28 Medications Name Sig Start Date Stop [...] 1 tab by mouth daily 06/[address] [facility] Not Available Not Available Not [...] as needed for spasms 10/15 completed [facility] [place] Not Available Not Available Not Available [...] Available OneTouch Verio Flex Meter 02/22 completed Ti[employer] gave patient device. Not Available Not Available Not Available BD Tracie 2nd Gen Pen Needle 32 gauge x USE 1 NEEDLE ONCE DAILY WITH VICTOZA [...] Status Never Smoker KRYSTAL SKELTON LPN null, [place] [facility]. 08/12/2023 07:44:55 Date Of Most Recent [...] And Wanted Help? (For Example, If You [place] Very Nervous, Lonely, Or Blue; Got Sick [...] LastModified Time Father Family history of stroke [email or web address] Not available 2022 04:00:48 Mother Family history [...] Details Recorded Time Pneumococcal conjugate PCV20, polysaccharide [id number] conjugate, adjuvant, PF 4 completed MD [address], [address] 08/12/2023 11:52:18 COVID-19, mRNA, LNP-S, PF, vanda-sucrose, 30 mcg/0.3 mL 4 completed MD [address], [address] 08/12/2023 11:52:18 COVID-19, mRNA, LNP-S, PF, vanda-sucrose, 30 mcg/0.3 mL 4 completed MD [address], [address] [place] [address] 03/04/2024 15:04:49 Tdap 1 completed Not Available [facility] 03/13/2023 06:18:37 Tdap 1 completed Not Available [facility] 03/13/2023 06:18:37 zoster live 5 completed Not Available [facility] 03/13/2023 06:18:37 Influenza, high-dose, trivalent, PF 8 completed Not Available [facility] 03/13/2023 06:18:38 Influenza, split virus, trivalent, preservative 6 completed Not Available [facility] 03/13/2023 06:18:38 Pneumococcal Conjugate, unspecified formulation 5 completed Not Available [facility] 03/13/2023 06:18:38 Influenza, split virus, quadrivalent, preservative 7 completed Not Available [facility] 03/13/2023 06:18:38 Influenza, high-dose, quadrivalent, PF 2 completed Not Available [facility] 03/13/2023 06:18:38 Influenza, high-dose, quadrivalent, PF 1 completed Not Available [facility] 03/13/2023 06:18:38 Influenza, high-dose, quadrivalent, PF 0 completed Not Available [facility] 03/13/2023 06:18:38 COVID-19, mRNA, LNP-S, PF, 100 mcg/0.5mL dose or 50 mcg/0.25mL dose 1 completed Not Available [facility] 03/13/2023 06:18:38 COVID-19, mRNA, LNP-S, PF, 100 mcg/0.5mL dose or 50 mcg/0.25mL dose 1 completed Not Available [facility] 03/13/2023 06:18:39 COVID-19, mRNA, LNP-S, PF, 100 mcg/0.5mL dose or 50 mcg/0.25mL dose 1 completed Not Available [facility] 03/13/2023 06:18:39 COVID-19, mRNA, LNP-S, bivalent, PF, 30 mcg/0.3 mL dose 2 completed Not Available [facility] 03/13/2023 06:18:39 pneumococcal polysaccharide PPV23 1 completed Not Available [facility] 03/13/2023 06:18:39 influenza, unspecified formulation 6 completed Not Available [facility] 03/13/2023 06:18:39 influenza, unspecified formulation 4 completed Not Available [facility] 03/13/2023 06:18:39 Influenza, high-dose, quadrivalent, PF 3 completed Not Available [facility] 05/15/2023 05:33:16 Past Encounters Encounter ID Performer Location Encounter Start Date Encounter Closed Date Diagnosis/Indication Diagnosis SNOMED-CT Code Diagnosis ICD10 Code [id number] Samantha Razo RN [address] [facility] [place] [address] 04/18/2024 10:14:04 04/18/2024 10:46:21 Osteoporotic fracture 22676315 M80.00XD Hypothyroidism 45714320 E03.9 Iron defic iency anemia 90161134 D50.9 Chronic ki dney disease 429995539 N18.9 Prediabetes 622136436 R7 3.03 Health Concerns Section Related Observation LastModified by Organization Detai ls LastModified Time None Recorded Concern Status LastModified by Organization Details LastModified Time None Recorded Payers Encounter Date Sequence Insurance Name Policy Number Policy Palacio Covered Member ID Palacio Member ID Guarantor Name 04/18/2024 1 [place] [employer] Digna Olson [id number] Digna Olson 04/18/2024 2 [place] [facility] [id number] Digna Olson [id number] Digna Olson OBGyn Episode No OBEpisode recorded.
--- OUTSIDE RECORDS SUMMARY | 2024-04-22 11:11 | XMS_ITS | Encounter Summary ---
Author Organization [facility] [place] [address] Care Team Providers Care Boiler Tube Blower Name Role Phone Ana Her MD Primary Care Provider [phone] Encounter Details Date Type Department Care Team (Late st Contact Info) Description 03/09/2022 11:00 PM EST Ancillary Procedure Radiology Library at [facility] [place] [address] Aan Her MD [address] [place] [address] [facility] [address] [place], [place] [id number] Social History Tobacco Use Types Packs/Day Years [...] CT Chest (03/09/2022 10:56 PM EST) Narrative [facility] - 03/09/2022 10:56 PM EST This exam is auto-finalizing. It's purpose is for storage only. Ana Her MD IM FILM LIBRARY ORD ERABLES [place], [place] documented in this encounter Visit Diagnoses Not on filedocumented in this encounter Care Teams Boiler Tube Blower Relationship Specialty Start Date End Date Ana Her MD [address] [facility] [address] [place] [address] PCP - General 07/29/13 documented as of this encounter
--- OUTSIDE RECORDS SUMMARY | 2024-04-22 11:11 | XMS_ITS | Encounter Summary ---
[place] [address] Care Team Providers Care Veterinary Nurse Name Role Phone Ana Her MD Primary Care Provider [phone] Encounter Details Date Type Department Care Team (Late st Contact Info) Description 10/23/2022 Telephone Mammography/[place] [phone] [place] [place] Social History Tobacco Use Types [...] on filedocumented in this encounter Care Teams Veterinary Nurse Relationship Specialty Start Date End Date Ana Hre MD [address] [place] [address] PCP - General 07/29/13 documented as of this encounter
--- OUTSIDE RECORDS SUMMARY | 2024-04-22 11:12 | XMS_ITS | Encounter Summary ---
[place] [address] Care Team Providers Care Director Data Analytics Name Role Phone Ana Her MD Primary Care Provider [phone] Encounter Details Date Type Department Care Team (Late st Contact Info) Description 11/09/2018 2:45 PM EDT Office Visit [place] [address] Ricky Lowry MD Malignant neoplasm of lower-outer quadrant of left [...] ??Excision with image-guided localization ?Lymph Node Sampling: ??[place]oot lymph node(s) ?Specimen Laterality: ??Left Tumor ?Histologic [...] ??DCIS not present in specimen Lymph Nodes ?Smoot Lymph Nodes: Smoot lymph node biopsy performed ?Number of Smoot Nodes Examined: ??3 ?Number of Lymph Node(s) [...] Spinal stenosis > A Fib. Cardiology at [facility]. S/P successful cardioversion May 2018. DEXA scan [...] laterality documented in this encounter Care Teams Director Data Analytics Relationship Specialty Start Date End Date Ana Her MD [address] [place] [address] PCP - General 07/29/13 documented as of this encounter
--- OUTSIDE RECORDS SUMMARY | 2024-04-22 11:12 | XMS_ITS | Encounter Summary ---
Author Organization [facility] Address [facility] [place] [address] Care Team Providers Care Fiscal Manager Name Role Phone Ana Her MD Primary Care Provider [phone] Encounter Details Date Type Department Care Team (Late st Contact Info) Description 09/03/2021 Ancillary Procedure Radiology Library at [facility], [place] [address] Laura Will MD [facility] [place] [address] Social History Tobacco Use Types Packs/Day Years [...] CT Chest (09/03/2021 12:00 AM EDT) Narrative [facility] - 11/28/2021 1:22 PM EDT This exam is auto-finalizing. It's purpose is for storage only. Laura Will MD IMG FILM LIBRARY OR DERABLES Performing Organization Address City/State/[facility] Co de Phone Number [place], [place] documented in this encounter Visit Diagnoses Not on filedocumented in this encounter Care Teams Fiscal Manager Relationship Specialty Start Date End Date Ana Her MD [address] [facility] [address] [place] [address] PCP - General 07/29/13 documented as of this encounter
--- OUTSIDE RECORDS SUMMARY | 2024-04-22 11:12 | XMS_ITS | Encounter Summary ---
Author Organization [facility] [place] [address] Care Team Providers Care Antenna Specialist Name Role Phone Ana Her MD Primary Care Provider [phone] Encounter Details Date Type Department Care Team (Late st Contact Info) Description 05/10/2018 1:10 PM EST - 05/10/2018 11:59 PM EST Hospital Encounter Mammography/[place] [phone] Hiral Padgett, WENDY Encounter for screening mammogram for breast cancer [...] cancer documented in this encounter Care Teams Antenna Specialist Relationship Specialty Start Date End Date Ana Her MD [address] [place] [address] PCP - General 07/29/13 documented as of this encounter
--- OUTSIDE RECORDS SUMMARY | 2024-04-22 11:12 | XMS_ITS | Encounter Summary ---
[place] [address] Care Team Providers Care Deaf And Hard Of Hearing Teacher Name Role Phone Ana Her MD Primary Care Provider [phone] Reason for Visit * Reason Comments Follow-up Encounter Details Date Type Department Care Team (Late st Contact Info) Description 11/29/2019 2:45 PM EDT Office Visit [place]ology [place] [phone] Ricky Lowry MD Malignant neoplasm of lower-outer [...] cancer cells with immunostaining) Stain intensity: Strong DE immunoreactivity: Positive (>90% cancer cells with immunostaining) [...] ??Excision with image-guided localization ?Lymph Node Sampling: ??[place]arshall lymph node(s) ?Specimen Laterality: ??Left Tumor ?Histologic [...] ??DCIS not present in specimen Lymph Nodes ?[place]arshall Lymph Nodes: Marshall lymph node biopsy performed ?Number of Marshall Nodes Examined: ??3 ?Number of Lymph Node(s) [...] positive documented in this encounter Care Teams Deaf And Hard Of Hearing Teacher Relationship Specialty Start Date End Date Ana Her MD [address] [place] [address] PCP - General 07/29/13 documented as of this encounter
--- OUTSIDE RECORDS SUMMARY | 2024-04-22 11:12 | XMS_ITS | Encounter Summary ---
[place] [address] Care Team Providers Care Buyer Planner Name Role Phone Ana Her MD Primary Care Provider [phone] 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 * Diagnostic Test (Routine) - Closed Specialty Diagnoses / Procedures Referred By Christiano hackett Referred To Contact Radiology Diagnoses 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, estrogen receptor positive Osteopenia of neck of femur, unspecified laterality residential current 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 Procedures DXA Central-Spine, Hip, And/Or Whole Body (Generic) Ricky Lowry MD [facility] DR HEMATOLOGY/[place] [address] [facility] Rad Xray [address] [place] [address] [place] [address] Referral ID Status Reason Start Date Expiration Date V isits Requested Visits Authorized [id number] Closed Specialty Service Requested 05/10/2018 05/10/2019 1 1 Reason for Visit * Reason Comments Follow-up Encounter Details Date Type Department Care Team (Late st Contact Info) Description 05/10/2018 2:45 PM EST Office Visit Hematology and Oncology at [facility] [place] [address] Ricky Lowry MD Malignant neoplasm of lower-outer [...] cancer cells with immunostaining) Stain intensity: Strong MD immunoreactivity: Positive (>90% cancer cells with immunostaining) [...] ??Excision with image-guided localization ?Lymph Node Sampling: ??[place] lymph node(s) ?Specimen Laterality: ??Left Tumor ?Histologic [...] ??DCIS not present in specimen Lymph Nodes ?[place] Lymph Nodes: [place] lymph node biopsy performed ?Number of [place] Nodes Examined: ??3 ?Number of Lymph Node(s) [...] Spinal stenosis > A Fib. Cardiology at [facility]. Most recent DEXA scan was last year at [facility]. There is no history of [...] is planned for later this week (at [facility] No new problems with VELEZ, diplopia, cough, [...] chemotherapy. TACHO. Renewal of anastrazole sent. Given [facility] brochure to share with cousins. All [...] BMD measurements and plots are available in [employer] under the imaging tab. Paper copies will be sent to providers without [employer] access. If you have received this report without the data sheet and do not have access to [employer], please contact Radiology Under Seal Operator at [phone] Thursday thru Thursday 8am-4pm. Thank you for [...] BMD measurements and plots are available in BroadClipunder the imaging tab. Paper copies will be sent to providers without [employer] access.If you have received this report without the data sheet and do not haveaccess to [employer], please contact Radiology Under Seal Operator at [phone] Thursday thruFriday 8am-4pm. Thank you for letting us participate in the care of this patient. Forquestions regarding this report, please contact the number below. Electronically signed by: Khushi Hughes [facility] ([phone]),at 11/10/2018 10:55 AM Ricky Lowry MD IMG [...] inhibitors documented in this encounter Care Teams Buyer Planner Relationship Specialty Start Date End Date Ana Her MD [address] [place] [address] PCP - General 07/29/13 documented as of this encounter
--- OUTSIDE RECORDS SUMMARY | 2024-04-22 11:12 | XMS_ITS | Encounter Summary ---
Author Organization [place] [address] Care Team Providers Care Rn Relief Charge Name Role Phone Ana Her MD Primary Care Provider [phone] Reason for Visit * Consultation (Routine) - Closed Specialty Diagnoses / Procedures Referred By Christiano hackett Referred To Contact General Surgery Diagnoses Hiatal hernia Ana Her MD [address] [place] [address] [facility] Surgery [address] [place] [address] Referral ID Status Reason Start Date Expiration Date V isits Requested Visits Authorized [id number] Closed Consult, Test & Treat 09/23/2021 09/23/2022 6 6 Encounter Details Date Type Department Care Team (Latest Contact Info) Description 12/05/2021 3:00 PM EDT Office [place] [address] Laura Will MD [facility] [place] [address] Paraesophageal hernia Social History Tobacco [...] of left breast of female, estrogen receptor [id number], Z17.0 ??? Anemia D64.9 ??? Aortic valve [...] 6.43) performed by Malika Chen MD at [facility] MAIN OR ??? PRO INTRAOP SENTINEL LYMPH ID W/DYE INJECTION Left 03/30/2017 INTRAOPERATIVE ID (MAPPING) SENTINEL LYMPH NODE,INCLUDES INJECTION (WRVU 2.5) performed by Malika Chen MD at [facility] MAIN OR ??? PRO MASTECTOMY PARTIAL Left 03/30/2017 MASTECTOMY PARTIAL (WRVU 10.13) performed by Malika Chen MD at [facility] MAIN OR Cholecystectomy Medications: Current [...] gangrene documented in this encounter Care Teams Rn Relief Charge Relationship Specialty Start Date End Date Ana Her MD [address] [place] [address] PCP - General 07/29/13 documented as of this encounter
--- OUTSIDE RECORDS SUMMARY | 2024-04-22 11:12 | XMS_ITS | Encounter Summary ---
[place] [address] Care Team Providers Care Worker'S Compensation Claims Examiner Name Role Phone Ana Her MD Primary Care Provider [phone] Reason for Visit * Reason Comments Follow-up Encounter Details Date Type Department Care Team (Late st Contact Info) Description 06/11/2021 11:00 AM EST Office Visit Hematology [place] [address] Laura Joaquin PA 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, estrogen receptor positive; alf current 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 Social History [...] ??Excision with image-guided localization ?Lymph Node Sampling: ??[place] lymph node(s) ?Specimen Laterality: ??Left Tumor ?Histologic [...] ??DCIS not present in specimen Lymph Nodes ?[place] Lymph Nodes: [place] lymph node biopsy performed ?Number of [place] Nodes Examined: ??3 ?Number of Lymph Node(s) [...] Spinal stenosis > A Fib. Cardiology at [facility]. S/P successful cardioversion May [...] on RA Breasts: deferred (examined by surgery DESK REPORTER today) Neuro: grossly nonfocal. Results: Last DXA [...] Medical Oncology - Breast & GI Cancers [facility] Pager - [phone] No future appointments. documented in this encounter Plan of Treatment Not on file documented as of this encounter Visit Diagnoses Diagnosis 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, estrogen receptor positive alf current 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 Use 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s documented in this encounter Care Teams Worker'S Compensation Claims Examiner Relationship Specialty Start Date End Date Ana Her MD [address] [place] [address] PCP - General 07/29/13 documented as of this encounter
--- OUTSIDE RECORDS SUMMARY | 2024-04-22 11:12 | XMS_ITS | Encounter Summary ---
[place] [address] Care Team Providers Care Diet Attendant Name Role Phone Ana Her MD Primary Care Provider [phone] Encounter Details Date Type Department Care Team (Late st Contact Info) Description 02/04/2022 12:00 PM EDT [place] [address] Social History Tobacco Use Types Packs/Day Years [...] on filedocumented in this encounter Care Teams Diet Attendant Relationship Specialty Start Date End Date Ana Her MD [address] [place] [address] PCP - General 07/29/13 documented as of this encounter
--- OUTSIDE RECORDS SUMMARY | 2024-04-22 11:12 | XMS_ITS | Encounter Summary ---
[place] [address] Care Team Providers Care Vegetable Canner Name Role Phone Ana Her MD Primary Care Provider [phone] Encounter Details Date Type Department Care Team (Late st Contact Info) Description 04/05/2018 Telephone [place] [address] Adrianna Jones Social History Tobacco Use Types [...] [place]. Patient advises she is admitted at [facility] for afib and is pending procedure etc. Patient will call to reschedule once she is discharged home. documented in this encounter Plan of Treatment Not on file documented as of this encounter Visit Diagnoses Not on filedocumented in this encounter Care Teams Vegetable Canner Relationship Specialty Start Date End Date Ana Her MD [address] [place] [address] PCP - General 07/29/13 documented as of this encounter
--- OUTSIDE RECORDS SUMMARY | 2024-04-22 11:12 | XMS_ITS | Encounter Summary ---
Author Organization [facility] Address [facility] [place] [address] Care Team Providers Care Vp Business Development Name Role Phone Ana Her MD Primary Care Provider [phone] Reason for Visit * Reason Comments Radiation Consult * Consultation (Routine) - Closed Specialty Diagnoses / Procedures Referred By Christiano hackett Referred To Contact Radiation Oncology Diagnoses Breast cancer Malika Chen MD [facility] [address] St[facility] Rad Onc Office [address] [place] [address] Referral ID Status Reason Start Date Expiration Date Visits Re quested Visits Authorized [id number] Closed 03/17/2017 03/17/2018 1 1 Encounter Details Date Type Department Care Team (Late st Contact Info) Description 04/13/2017 10:00 AM EST Office Visit Radiation Oncology at [address] [address] Faye Velez MD [facility] [place] [address] Malignant neoplasm of left female breast, unspecified [...] she is being evaluated for afib @ [facility] 04/15/17; has been wearing a ziopatch [...] 6.43) performed by Malika Chen MD at [facility] MAIN OR ??? PRO INTRAOP SENTINEL LYMPH ID W/DYE INJECTION Left 03/30/2017 INTRAOPERATIVE ID (MAPPING) SENTINEL LYMPH NODE,INCLUDES INJECTION (WRVU 2.5) performed by Malika Chen MD at [facility] MAIN OR ??? PRO MASTECTOMY, PARTIAL Left 03/30/2017 MASTECTOMY PARTIAL (WRVU 10.13) performed by Malika Chen MD at [facility] MAIN OR Your Medications These changes [...] treated breast; cough; shortness of breath; tiredness. Late/half-way side effects to breast discussed include: Treated [...] breast documented in this encounter Care Teams Vp Business Development Relationship Specialty Start Date End Date Ana Her MD [address] [place] [address] PCP - General 07/29/13 documented as of this encounter
--- OUTSIDE RECORDS SUMMARY | 2024-04-22 11:12 | XMS_ITS | Encounter Summary ---
Author Organization [facility] [place] [address] Care Team Providers Care Filling Room Operator Name Role Phone Ana Her MD Primary Care Provider [phone] 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 * Diagnostic Test (Routine) - Closed Specialty Diagnoses / Procedures Referred By Contac t Referred To Contact Radiology Diagnoses 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, estrogen receptor positive Osteopenia of neck of femur, unspecified laterality long-term current 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 Procedures DXA Central-Spine, Hip, And/Or Whole Body (Generic) Ricky Lowry MD [facility] HEMATOLOGY/[place] [address] [facility] Rad Xray [address] [place] [address] [place] [address] Referral ID Status Reason Start Date Expiration Date V isits Requested Visits Authorized [id number] Closed Specialty Service Requested 05/10/2018 05/10/2019 1 1 Reason for Visit * Diagnostic Test (Routine) - Closed Specialty Diagnoses / Procedures Referred By Contac t Referred To Contact Radiology Diagnoses 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, estrogen receptor positive Osteopenia of neck of femur, unspecified laterality long-term current 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 Procedures DXA Central-Spine, Hip, And/Or Whole Body (Generic) Ricky Lowry MD [facility] HEMATOLOGY/[place] [address] [facility] Rad Xray [address] [place] [address] Dr [place], [place] [address] Referral ID Status Reason Start Date Expiration Date V isits Requested Visits Authorized [id number] Closed Specialty Service Requested 05/10/2018 05/10/2019 1 1 Encounter Details Date Type Department Care Team (Latest Contact Info) Description 11/09/2018 1:03 PM EDT - 11/09/2018 11:59 PM EDT Hospital Encounter XRay at [address] [place] [address] Ricky Lowry MD 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, estrogen receptor positive; Osteopenia of neck of femur, unspecified laterality; 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 Paper copies will be sent to providers without [employer] access. If you have received this report without the data sheet and do not have access to [employer], please contact Radiology Official Greeter at [phone] Thursday thru Thursday 8am-4pm. Thank you for [...] BMD measurements and plots are available in [employer]under the imaging tab. Paper copies will be sent to providers without [employer] access.If you have received this report without the data sheet and do not haveaccess to [employer], please contact Radiology Official Greeter at [phone] Thursday thruFriday 8am-4pm. Thank you for letting us participate in the care of this patient. Forquestions regarding this report, please contact the number below. Electronically signed by: Khushi Hughes [facility] [place] ([phone]),at 11/10/2018 10:55 AM Ricky Lowry MD IMG DEXA ORDERABLES documented in this encounter Visit Diagnoses Diagnosis 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, estrogen receptor positive Osteopenia of neck of femur, unspecified laterality long-term current 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 Use 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s documented in this encounter Care Teams Filling Room Operator Relationship Specialty Start Date End Date Ana Her MD [facility] [address] [facility] [address] [place] [address] PCP - General 07/29/13 documented as of this encounter
--- OUTSIDE RECORDS SUMMARY | 2024-04-22 11:12 | XMS_ITS | Encounter Summary ---
[place] [address] Care Team Providers Care Sales Representative Business Courses Name Role Phone Ana Her MD Primary Care Provider Encounter Details Date Type Department Care Team (Late st Contact Info) Description 06/12/2021 Telephone [place] [address] Chelsie Lauren Social History Tobacco Use Types [...] filedocumented in this encounter Care Teams Sales Representative Business Courses Relationship Specialty Start Date End Date Ana Her MD [address] [place] [address] PCP - General 07/29/13 documented as of this encounter
--- OUTSIDE RECORDS SUMMARY | 2024-04-22 11:12 | XMS_ITS | Encounter Summary ---
[place] [address] Care Team Providers Care Relay Operator Name Role Phone Ana Her MD Primary Care Provider [phone] Encounter Details Date Type Department Care Team (Late st Contact Info) Description 11/01/2021 Telephone [place] [address] Chelsie Lauren Social History Tobacco Use Types [...] on filedocumented in this encounter Care Teams Relay Operator Relationship Specialty Start Date End Date Ana Her MD [address] [place] [address] PCP - General 07/29/13 documented as of this encounter
--- OUTSIDE RECORDS SUMMARY | 2024-04-22 11:12 | XMS_ITS | Encounter Summary ---
[place] [address] Care Team Providers Care Java Oracle Developer Name Role Phone Ana Her MD Primary Care Provider [phone] Encounter Details Date Type Department Care Team (Late st Contact Info) Description 01/08/2022 7:30 AM EDT - 01/08/2022 8:40 AM EDT Surgery [place] [phone] Laura Park MD [facility] [place] [address] EGD, UPPER GI ENDOSCOPY (WRVU 2.09) Social [...] a nurse in the Thoracic Clinic at [phone]. After hours or on weekends or holidays please call: [phone] and ask to speak to the Thoracic Physician environmental protection specialist. Diet: You should follow a clear liquid [...] - 5pm): General Surgery and Bariatric Surgery [phone] Bariatric Surgeons: Drs. Park and John [phone] Control Panel Operator Crude Unit: [phone] Dietitians: [phone] Outside of regular business hours, including weekends and holidays: Ask for General Surgery resident environmental protection specialist [phone] Please note, this call will be answered [...] of left breast of female, estrogen receptor rziwwdgyT41.512, Z17.0 ??? Anemia D64.9 ??? Aortic valve [...] 6.43) performed by Malika Chen MD at [facility] MAIN OR ??? PRO INTRAOP SENTINEL LYMPH ID W/DYE INJECTION Left 03/30/2017 ?? INTRAOPERATIVE ID (MAPPING) SENTINEL LYMPH NODE,INCLUDES INJECTION (WRVU 2.5) performed by Malika Chen MD at [facility] MAIN OR ??? PRO MASTECTOMY PARTIAL Left 03/30/2017 ?? MASTECTOMY PARTIAL (WRVU 10.13) performed by Malika Chen MD at [facility] MAIN OR ?? Cholecystectomy ?? Medications: ?? [...] MD - 01/08/2022 7:48 AM EDT [facility] [place] Patient Name: Digna Olson : [id number] MR#: [id number] Case Date: 01/08/2022 Surgeon: Surgeon(s) and Role: [...] Info Order Time SPECIMEN TO PATHOLOGY Gastric [place] for H Pylori Hiatal hernia Gastric [place] for H Pylori excision 01/08/2022 8:15 AM [...] 8:14 AM EDT Upper GI Endoscopy, Diagnostic (63168) Yes 01/08/2022 7:40 AM EDT Hiatal hernia POCT GLUCOSE Routine 01/08/2022 6:33 AM EDT documented in this encounter Results * Specimen to Pathology (01/08/2022 8:15 AM EDT) AP Specimen 01/08/2022 8:15 AM EDT 01/08/2022 8:15 AM EDT Narrative [facility] - 01/08/2022 8:15 AM EDT Specimen requisition ordered. ??Separate Pathology report to follow Laura Park MD PATHOLOGY/CYTOLOGY ORDERABLES [facility] [place] [address] * Surgical Pathology Report (01/08/2022 8:14 AM EDT) Final Diagnosis [id number] ? Location: SDP; SD36; A The signing pathologist has (i) examined the relevant preparation(s) for the specimen(s) and (ii) rendered or confirmed the diagnosis(es). . ?Surgical Pathology DIAGNOSIS A - Gastric ??Antrum for H Pylori, excision: - ??Antrum-type mucosa with reactive gastropathy. Electronically signed by: ?Umang Raymundo MD Verified: ??01/09/2022 16:36 ??Pathologist Performed at: ??-[facility] [place]. [place], [place], [place] SPECIMEN(S) SUBMITTED A - Gastric ??Antrum for H Pylori, excision (1) CLINICAL INFORMATION Hiatal hernia SPECIMEN PROCESSING A - Labeled/Fixativ e: Gastric antrum for H. pylori, formalin. Quantity/Size: Single, 0.3 cm. Tissue Description: Soft, pink tissue. Sections/Proces sing: Submitted en toto ??in 1 cassette labeled A1. ??sns 01/09/2022 4:36 PM EDT [facility] GI Biopsy 01/08/2022 8:14 AM EDT 01/08/2022 8:14 AM EDT Laura Park MD PATHOLOGY/CYTOLOGY ORDERABLES Performing Organization Address City/State/[facility] Co de Phone Number [facility] [place] [address] * POCT Glucose (01/08/2022 6:33 AM EDT) Glucose, POC 120 65 - 199 mg/dL [facility] Comment: Supplemental ranges: <140 mg/dL before meals <180 mg/dL all other times of the day Blood 01/08/2022 6:33 AM EDT 01/08/2022 6:33 AM EDT Laura Park MD POINT [place] [address] documented in this encounter Visit Diagnoses Not on filedocumented in this encounter Active and Recently Administered Medications Care Teams Java Oracle Developer Relationship Specialty Start Date End Date Ana Her MD [address] [facility] 1 [place] [address] PCP - General 07/29/13 documented as of this encounter
--- OUTSIDE RECORDS SUMMARY | 2024-04-22 11:12 | XMS_ITS | Encounter Summary ---
[place] [address] Care Team Providers Care Customer Care Team Coach Name Role Phone Ana Her MD Primary Care Provider [phone] Reason for Visit * Reason Comments Schedule Office Case Encounter Details Date Type Department Care Team (Late st Contact Info) Description 04/23/2017 2:00 PM EST Office Visit Hematology [place] [phone] Ricky Lowry MD Malignant neoplasm of lower-outer [...] cancer cells with immunostaining) Stain intensity: Strong AL immunoreactivity: Positive (>90% cancer cells with immunostaining) [...] ??Excision with image-guided localization ?Lymph Node Sampling: ??[place] lymph node(s) ?Specimen Laterality: ??Left Tumor ?Histologic [...] ??DCIS not present in specimen Lymph Nodes ?[place] Lymph Nodes: [place] lymph node biopsy performed ?Number of [place] Nodes Examined: ??3 ?Number of Lymph Node(s) [...] DEXA scan was in this year at [facility]. There is no history of [...] positive documented in this encounter Care Teams Customer Care Team Coach Relationship Specialty Start Date End Date Ana Her MD [address] [place] [address] PCP - General 07/29/13 documented as of this encounter
--- OUTSIDE RECORDS SUMMARY | 2024-04-22 11:12 | XMS_ITS | Encounter Summary ---
[place] [address] Care Team Providers Care Lidar Technician Name Role Phone Ana Her MD Primary Care Provider [phone] Encounter Details Date Type Department Care Team (Late st Contact Info) Description 12/17/2021 Telephone [place] [phone] Roma Estrada RN Social History Tobacco Use [...] on filedocumented in this encounter Care Teams Lidar Technician Relationship Specialty Start Date End Date Ana Her MD [address] [place] [address] PCP - General 07/29/13 documented as of this encounter
--- OUTSIDE RECORDS SUMMARY | 2024-04-22 11:12 | XMS_ITS | Encounter Summary ---
Author Organization [facility] [place] [address] Care Team Providers Care Sand Wheeler Name Role Phone Ana Her MD Primary Care Provider [phone] Encounter Details Date Type Department Care Team (Latest Contact Info) Description 01/23/2022 12:15 PM EDT TH Visit (TeleHealth) [place] [address] Laura Will MD [facility] [place] [address] Paraesophageal hernia Social History Tobacco Use Types [...] her. She is followed by cardiology at [facility], and is on xarelto. Impression: Symptomatic paraesophageal [...] gangrene documented in this encounter Care Teams Sand Wheeler Relationship Specialty Start Date End Date Ana Her MD [address] [facility] 1 [place] [address] PCP - General 07/29/13 documented as of this encounter
--- OUTSIDE RECORDS SUMMARY | 2024-04-22 11:12 | XMS_ITS | Encounter Summary ---
[place] [address] Care Team Providers Care Umbrella Supervisor Name Role Phone Ana Her MD Primary Care Provider [phone] Reason for Visit * Auth/Cert Specialty Diagnoses / Procedures Referred By Christiano hackett Referred To Contact Diagnoses S/P repair of paraesophageal hernia Post-Op monitoring Procedures PRO LAPARSCOPY REPAIR PARAESOPHAGEAL HERNIA INCL FUNDOPLASTY W/O MESH LAPAROSCOPIC PARAESOPHAGEAL HERNIA REPAIR W/FUNDOPLASTY, W/O MESH (WRVU 26.6) MODIFIER TOUPET FUNDOPLASTY Laura Will MD [facility] [place] [address] [facility] Referral ID Status Reason Start Date Expiration Date Visits Re quested Visits Authorized [id number] 1 1 Encounter Details Date Type Department Care Team (Late st Contact Info) Description 03/05/2022 1:58 PM EDT Anesthesia Event [place] [phone] Alisa Naqvi MD [facility] [place] [address] Alessia Ramirez [place] [address] Anesthesia Record Procedure Summary Procedure Name Responsible [...] Procedure Summary Date: 03/05/22 Room / Location: [address] MAIN OR Anesthesia Start: 8 Anesthesia Stop: 1823 Procedures: LAPAROSCOPIC PARAESOPHAGEAL HERNIA REPAIR W/FUNDOPLASTY, W/O MESH (WRVU 26.6) (N/A Abdomen) MODIFIER TOUPET FUNDOPLASTY (N/A Abdomen) Diagnosis: (Paraesophageal Hernia) Surgeons: Laura Will MD Responsible Provider: Alisa Naqvi MD Anesthesia Type: general ASA Status: 3 All Anesthesia Providers: Anesthesiologist: Brayan Hubbard MD; Alisa Naqvi MD; Dario Franco MD Optometrist: Mo Vance DO Vitals Value Taken Time BP 125/75 03/05/22 1821 Temp Pulse 77 03/05/22 1823 Resp 18 03/05/22 1823 SpO2 100 % 03/05/22 182 Pain Level Vitals shown include unvalidated device data. Patient Location: PACU/[facility] Level of Consciousness: Awake and Alert Pain [...] of left breast of female, estrogen receptor xueyjkot68/25/2017 ??? Bicuspid aortic valve 06/10/2016 ??? Dyspnea [...] 6.43) performed by Malika Chen MD at [facility] MAIN OR ??? PRO INTRAOP SENTINEL LYMPH ID W/DYE INJECTION Left 03/30/2017 INTRAOPERATIVE ID (MAPPING) SENTINEL LYMPH NODE,INCLUDES INJECTION (WRVU 2.5) performed by Malika Chen MD at [facility] MAIN OR ??? PRO MASTECTOMY PARTIAL Left 03/30/2017 MASTECTOMY PARTIAL (WRVU 10.13) performed by Malika Chen MD at [facility] MAIN OR ??? PRO UPPER GI ENDOSCOPY, DIAGNOSTIC N/A 01/08/2022 EGD, UPPER GI ENDOSCOPY performed by Laura Will MD at [facility] MAIN OR Social History Tobacco Use [...] sneeze Cardiac Hx: Exercise stress test 10/07/21 [facility]: Resting electrocardiogram showed atrial fibrillation, right BBB, left anterior fascicular block. Patient achieved 4.64METS, achieved 93% of predicted HR for age. Electrocardiographic portion of test negative for ischemia. MPI negative for ischemia or infarction. EF 45%. Wall motion normal. ?? Echo 06/19/21 ([facility]): normal biventricular size and function, symmetric LVH. [...] PONV ppx Mo Shreyas DO Pinky 03/04/2022 Orthotic Aide Pager #[phone] Region - Other Informed Consent: Anesthetic plan [...] GERD (omeprazole) ?? Exercise stress test 10/07/21 [facility]: Resting electrocardiogram showed atrial fibrillation, right BBB, left anterior fascicular block. Patient achieved 4.64METS, achieved 93% of predicted HR for age. Electrocardiographic portion of test negative for ischemia. MPI negative for ischemia or infarction. EF 45%. Wall motion normal. ?? Echo 06/19/21 ([facility]): normal biventricular size and function, symmetric [...] 1 view ?? Followed by cardiology at [facility], notes under Care Everywhere. Last seen [...] mg documented in this encounter Care Teams Umbrella Supervisor Relationship Specialty Start Date End Date Ana Her MD [address] [facility] 1 [place] [address] PCP - General 07/29/13 documented as of this encounter
--- OUTSIDE RECORDS SUMMARY | 2024-04-22 11:12 | XMS_ITS | Encounter Summary ---
Author Organization [facility] [place] [address] Care Team Providers Care Patient Case Coordinator Name Role Phone Ana Her MD Primary Care Provider Encounter Details Date Type Department Care Team (Latest Contact Info) Description 05/22/2020 10:46 AM EST - 05/22/2020 11:59 PM [facility] Hospital Encounter Mammography/[place] [phone] Jeanine Lobato APRN [facility] [place] [address] Malignant neoplasm of lower-outer quadrant of left [...] mammogram documented in this encounter Care Teams Patient Case Coordinator Relationship Specialty Start Date End Date Ana Her MD [facility] [address] [facility] 1 [place] [address] PCP - General 07/29/13 documented as of this encounter
--- OUTSIDE RECORDS SUMMARY | 2024-04-22 11:12 | XMS_ITS | Encounter Summary ---
[place] [address] Care Team Providers Care Ripsaw Matcher Name Role Phone Ana Her MD Primary Care Provider [phone] Reason for Visit * Reason Comments Follow-up Encounter Details Date Type Department Care Team (Late st Contact Info) Description 05/22/2020 11:40 AM EST Office [place] [address] Jeanine Lobato APRN [facility] [place] [address] Encounter for follow-up surveillance of breast cancer; [...] was obtained which revealed IDC which is ER/NE positive, Her2 negative. Alma Delia opted against [...] ??Excision with image-guided localization ?Lymph Node Sampling: ??[place] lymph node(s) ?Specimen Laterality: ??Left Tumor ?Histologic [...] ??DCIS not present in specimen Lymph Nodes ?[place] Lymph Nodes: [place] lymph node biopsy performed ?Number of [place] Nodes Examined: ??3 ?Number of Lymph Node(s) [...] herex- speak almost daily. He lives in [place] and is beginning to show early signs [...] situation. Results: Imaging performed (bilateral mammogram) at [facility] today shows no evidence of malignancy, BIRADS [...] available at [employer] ([employer]) and [employer]. All questions were answered to the patient's satisfaction and they state understanding and agreement with today's treatment plan. They are encouraged to follow up sooner if they develop any new or concerning symptoms. Jeanine Lobato APRN Surgical Oncology P [phone] F [phone] [facility] documented in this encounter Plan of Treatment [...] Digna Noel MD, [facility] ([phone]), at 06/11/2021 9:20 AM Jeanine Lobato APRN [...] mammogram documented in this encounter Care Teams Ripsaw Matcher Relationship Specialty Start Date End Date Ana Her MD [facility] [address] [place] [address] PCP - General 07/29/13 documented as of this encounter
--- OUTSIDE RECORDS SUMMARY | 2024-04-22 11:12 | XMS_ITS | Encounter Summary ---
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, estrogen receptor positive Macromastia Jeanine Lobato APRN [facility] [place] [address] [facility] Plastic Surg [address] [place] [address] Referral ID Status Reason Start Date Expiration Date V isits Requested Visits Authorized [id number] Closed Consult, Test & Treat 06/11/2021 06/11/2022 1 1 Encounter Details Date Type Department Care Team (Late st Contact Info) Description 07/09/2021 8:30 AM EST Office [place] [address] Med Hudson MD [facility] [place] [address] Macromastia Social History Tobacco Use [...] physical with your primary care doctor and [employer] Finisher clearance Two Weeks prior to Surgery Do [...] Day of Surgery You will need a pickup driver. If you do not have a pickup driver, your surgery will be canceled. DO [...] For questions pertaining to your surgical date [phone] For nursing related questions [phone] On weekends, holidays or after office hours: Call [phone] and ask the cover operator to page the Plastic Surgery Resident java web application developer. documented in this encounter Progress Notes * [...] and was normal. This was performed at [facility]. She has completed a breast specific questionnaire: [...] None of the time Conservative Therapy Treatments: [facility] CONSERVATIVE THERAPY TREATMENTS 07/09/2021 Physical therapy [...] [facility] MAIN OR Family History Problem Relation [...] surgery is best done at a realistic skilled nursing stable weight. We talked about the outpatient [...] revisions for scarring or asymmetry.) Garcia or Zahl Pattern Incision: More scarring on breast, but [...] Timeframe: Elective Procedure: Bilateral breast reduction CPT: 35743 Surgical Technique: Garcia, Pedicle Surgical site: Breasts Side: Bilateral Anesthesia: General Follow up: 1 day for drain removal; 7-10 days for HCK PAT: H+P PCP, Cardiac clearance. Need to discontinue blood thinners pre-op? Xarelto documented in this encounter Plan of Treatment Not on file documented as of this encounter Visit Diagnoses Diagnosis Macromastia Hypertrophy of breast documented in this encounter Care Teams Wastewater Treatment Operator Relationship Specialty Start Date End Date Ana Her MD [address] [place] [address] PCP - General 07/29/13 documented as of this encounter
--- OUTSIDE RECORDS SUMMARY | 2024-04-22 11:12 | XMS_ITS | Encounter Summary ---
Author Organization [facility] [place] [address] Care Team Providers Care Senior Art Director Name Role Phone Ana Her MD Primary Care Provider [phone] Encounter Details Date Type Department Care Team (Late st Contact Info) Description 05/31/2019 1:00 PM EST Office [place] [address] Jeanine Lobato RISK INTERN [facility] [place] [address] Encounter for follow-up surveillance of breast cancer; [...] was obtained which revealed IDC which is ER/NE+, Her2-. She hasno known breast masses, no adenopathy, no nipple discharge. 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 He lives in [place]. She enjoys reading and cooking. She does [...] situation. Results: Imaging performed (bilateral mammogram) at [facility] today shows no evidence of malignancy, BIRADS [...] they develop any new or concerning symptoms. Jaenine Lobato APRN Surgical Oncology P [phone] F [phone] [facility] documented in this encounter Plan of [...] mammogram documented in this encounter Care Teams Senior Art Director Relationship Specialty Start Date End Date Ana Her MD [facility] [address] [facility] [place] [address] PCP - General 07/29/13 documented as of this encounter
--- OUTSIDE RECORDS SUMMARY | 2024-04-22 11:12 | XMS_ITS | Encounter Summary ---
[place] [address] Care Team Providers Care Recreation Specialist Name Role Phone Ana Her MD Primary Care Provider [phone] 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 * Consultation (Routine) - Closed Specialty Diagnoses / Procedures Referred By Christiano hackett Referred To Contact Plastic Surgery Diagnoses 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, estrogen receptor positive Macromastia Jeanine Lobato APRN [facility] [place] [address] [facility] Plastic Surg [address] [address] Referral ID Status Reason Start Date Expiration Date V isits Requested Visits Authorized [id number] Closed Consult, Test & Treat 06/11/2021 06/11/2022 1 1 Encounter Details Date Type Department Care Team (Late st Contact Info) Description 06/11/2021 10:00 AM EST Office [place] [address] Jeanine Lobato APRN [facility] [place] [address] Encounter for follow-up surveillance [...] this encounter Progress Notes * Jeanine Lobato, WATCH ENGINE OPERATOR - 06/11/2021 10:00 AM EST Images from [...] was obtained which revealed IDC which is ER/KS positive, Her2 negative. Alma Delia opted against [...] mm Grade Intermediate Margins Negative ER Positive [place] Positive HER-2 Negative OncotypeDx Recurrence Score N/A [...] Family history of ovarian cancer No Ashkenazi Hinduism heritage No Known genetic mutation Not tested [...] to speak almost daily. He lives in [place] and is beginning to show early signs [...] situation. Results: Imaging performed (bilateral mammogram) at [facility] today shows no evidence [...] free apps for your cell phone from [employer] ([employer]) and [employer] ([employer]). All questions were answered to the patient's satisfaction and they state understanding and agreement with today's treatment plan. They are encouraged to follow up sooner if they develop any new or concerning symptoms. Jeanine Lobato APRN Surgical Oncology P [phone] F [phone] [facility] documented in this encounter Plan of Treatment [...] breast documented in this encounter Care Teams Recreation Specialist Relationship Specialty Start Date End Date Ana Her MD [address] [place] [address] PCP - General 07/29/13 documented as of this encounter
--- OUTSIDE RECORDS SUMMARY | 2024-04-22 11:12 | XMS_ITS | Encounter Summary ---
[place] [address] Care Team Providers Care Property Assistant Name Role Phone Ana Her MD Primary Care Provider [phone] Reason for Visit * Reason Comments Follow-up Encounter Details Date Type Department Care Team (Late st Contact Info) Description 11/15/2020 4:00 PM EDT Office Visit [place] [phone] Laura Joaquin PA Malignant neoplasm of lower-outer [...] ??Excision with image-guided localization ?Lymph Node Sampling: ??[place] lymph node(s) ?Specimen Laterality: ??Left Tumor ?Histologic [...] ??DCIS not present in specimen Lymph Nodes ?[place] Lymph Nodes: [place] lymph node biopsy performed ?Number of [place] Nodes Examined: ??3 ?Number of Lymph Node(s) [...] Spinal stenosis > A Fib. Cardiology at [facility]. S/P successful cardioversion May 2018. DEXA scan [...] Medical Oncology - Breast & GI Cancers [facility] Pager [phone] documented in this encounter Plan of Treatment Not on file documented as of this encounter Visit Diagnoses Diagnosis 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, estrogen receptor positive documented in this encounter Care Teams Property Assistant Relationship Specialty Start Date End Date Ana Her MD [address] [place] [address] PCP - General 07/29/13 documented as of this encounter
--- OUTSIDE RECORDS SUMMARY | 2024-04-22 11:12 | XMS_ITS | Encounter Summary ---
[place] [address] Care Team Providers Care Cuff Runner Name Role Phone Ana Her MD Primary Care Provider [phone] Encounter Details Date Type Department Care Team (Late st Contact Info) Description 05/19/2017 Telephone Hematology [place] [phone] Sandy Chapman Social History Tobacco Use Types [...] on filedocumented in this encounter Care Teams Cuff Runner Relationship Specialty Start Date End Date Ana Her MD [address] [place] [address] PCP - General 07/29/13 documented as of this encounter
--- OUTSIDE RECORDS SUMMARY | 2024-04-22 11:12 | XMS_ITS | Encounter Summary ---
Author Organization Formerly [facility] [place] [address] Care Team Providers Care Economics Consultant Name Role Phone Ana Her MD Primary Care Provider [phone] Reason for Visit * Reason Comments Follow-up Encounter Details Date Type Department Care Team (Late st Contact Info) Description 10/23/2017 11:00 AM EDT Office Visit [place] [address] Mayra Page APRN [facility] [address] Malignant neoplasm of lower-outer quadrant of left [...] this encounter Progress Notes * Mayra Page, SENIOR RD ENGINEER - 10/23/2017 11:00 AM EDT Digna Olson [...] ??Excision with image-guided localization ?Lymph Node Sampling: ??[place] lymph node(s) ?Specimen Laterality: ??Left Tumor ?Histologic [...] ??DCIS not present in specimen Lymph Nodes ?[place] Lymph Nodes: [place] lymph node biopsy performed ?Number of [place] Nodes Examined: ??3 ?Number of Lymph Node(s) Examined (sentinel and nonsentinel): 3 ?Lymph Node Involvement: None identified Stage (pTNM) ?Pathological Stage: ?? pT1b pN0 PMH: Past Medical History: Diagnosis Date ??? Breast cancer ??? Fracture of tibia 12/2016 left tibial plateau ??? GERD (gastroesophageal reflux disease) ??? H/O non-insulin dependent diabetes mellitus ??? Spinal stenosis Most recent DEXA scan was 10/28/16 at [facility]. There is [...] positive documented in this encounter Care Teams Economics Consultant Relationship Specialty Start Date End Date Ana Her MD [address] [place] [address] PCP - General 07/29/13 documented as of this encounter
--- OUTSIDE RECORDS SUMMARY | 2024-04-22 11:12 | XMS_ITS | Encounter Summary ---
Author Organization [facility] [place] [address] Care Team Providers Care Industrial X Ray Operator Name Role Phone Ana Her MD Primary Care Provider [phone] Encounter Details Date Type Department Care Team (Latest Contact Info) Description 01/08/2022 6:11 AM EDT - 01/08/2022 9:40 AM EDT Hospital Encounter [place] [phone] Laura Park MD [facility] [place] [address] Discharge Disposition: Home Social History Tobacco Use [...] a nurse in the Thoracic Clinic at [phone]. After hours or on weekends or holidays please call: [phone] and ask to speak to the Thoracic Physician acid conditioning worker. Diet: You should follow a clear liquid [...] - 5pm): General Surgery and Bariatric Surgery [phone] Bariatric Surgeons: Drs. Park and John [phone] Ecological Technical Officer: [phone] Dietitians: [phone] Outside of regular business hours, including weekends and holidays: Ask for General Surgery resident acid conditioning worker [phone] Please note, this call will be answered [...] of left breast of female, estrogen receptor tvrchgclD42.512, Z17.0 ??? Anemia D64.9 ??? Aortic valve [...] 6.43) performed by Malika Chen MD at [facility] MAIN OR ??? PRO INTRAOP SENTINEL LYMPH ID W/DYE INJECTION Left 03/30/2017 ?? INTRAOPERATIVE ID (MAPPING) SENTINEL LYMPH NODE,INCLUDES INJECTION (WRVU 2.5) performed by Malika Chen MD at [facility] MAIN OR ??? PRO MASTECTOMY PARTIAL Left 03/30/2017 ?? MASTECTOMY PARTIAL (WRVU 10.13) performed by Malika Chen MD at [facility] MAIN OR ?? Cholecystectomy ?? Medications: [...] Park MD - 01/08/2022 7:48 AM EDT [facility] Operative Note Patient Name: Digna Olson : [id number] MR#: [id number] Case Date: 01/08/2022 Surgeon: Surgeon(s) and Role: [...] Info Order Time SPECIMEN TO PATHOLOGY Gastric [place] for H Pylori Hiatal hernia Gastric [place] for H Pylori excision 01/08/2022 8:15 AM [...] 8:14 AM EDT Upper GI Endoscopy, Diagnostic ([id number]) Yes 01/08/2022 7:40 AM EDT Hiatal hernia [...] [facility] [place] [address] * Surgical Pathology Report (01/08/2022 8:14 AM EDT) Final Diagnosis [id number] ? Location: [facility]; [facility]; A The signing pathologist has (i) examined the relevant preparation(s) for the specimen(s) and (ii) rendered or confirmed the diagnosis(es). . ?Surgical Pathology DIAGNOSIS A - Gastric ??Antrum for H Pylori, excision: - ??Antrum-type mucosa with reactive gastropathy. Electronically signed by: ?Umang Raymundo MD Verified: ??01/09/2022 16:36 ??Pathologist Performed at: ??-[facility] Dept. of Pathology, [place], [place] SPECIMEN(S) SUBMITTED A - Gastric ??Antrum for H Pylori, excision (1) CLINICAL INFORMATION Hiatal hernia SPECIMEN PROCESSING A - Labeled/Fixativ e: Gastric antrum for H. pylori, formalin. Quantity/Size: Single, 0.3 cm. Tissue Description: Soft, pink tissue. Sections/Proces sing: Submitted en toto ??in 1 cassette labeled A1. ??sns 01/09/2022 4:36 PM EDT [facility] GI Biopsy 01/08/2022 8:14 AM EDT 01/08/2022 8:14 AM EDT Laura Park MD PATHOLOGY/CYTOLOGY ORDERABLES [facility] [place] [address] * POCT Glucose (01/08/2022 6:33 AM EDT) Glucose, POC 120 65 - 199 mg/dL [facility] Comment: Supplemental ranges: <140 mg/dL before meals <180 mg/dL all other times of the day Blood 01/08/2022 6:33 AM EDT 01/08/2022 6:33 AM EDT Laura Park MD POINT [place] [address] documented in this encounter Visit Diagnoses Not on filedocumented in this encounter Active and Recently Administered Medications Care Teams Industrial X Ray Operator Relationship Specialty Start Date End Date Ana Her MD [address] [place] [address] PCP - General 07/29/13 documented as of this encounter
--- OUTSIDE RECORDS SUMMARY | 2024-04-22 11:12 | XMS_ITS | Encounter Summary ---
[place] [address] Care Team Providers Care Attendant Arcade Name Role Phone Ana Her MD Primary Care Provider [phone] Encounter Details Date Type Department Care Team (Late st Contact Info) Description 06/12/2021 Telephone [place] [phone] Chelsie Lauren Social History Tobacco Use Types [...] on filedocumented in this encounter Care Teams Attendant Arcade Relationship Specialty Start Date End Date Ana Her MD [address] [place] [address] PCP - General 07/29/13 documented as of this encounter
--- OUTSIDE RECORDS SUMMARY | 2024-04-22 11:12 | XMS_ITS | Encounter Summary ---
[place] [address] Care Team Providers Care Electronic System Engineer Name Role Phone Ana Her MD Primary Care Provider [phone] Encounter Details Date Type Department Care Team (Late st Contact Info) Description 02/26/2022 Orders [place] [address] Alicia Manning RN Social History Tobacco Use [...] filedocumented in this encounter Care Teams Electronic System Engineer Relationship Specialty Start Date End Date Ana Her MD [address] [place] [address] PCP - General 07/29/13 documented as of this encounter
--- OUTSIDE RECORDS SUMMARY | 2024-04-22 11:12 | XMS_ITS | Encounter Summary ---
Author Organization [facility] [place] [address] Care Team Providers Care Dipping Machine Operator Name Role Phone Ana Her MD Primary Care Provider [phone] Reason for Visit * Reason Comments Follow-up Encounter Details Date Type Department Care Team (Late st Contact Info) Description 05/31/2019 11:45 AM EST Office Visit Hematology [place] [phone] Ricky Lowry MD Malignant neoplasm of lower-outer [...] cancer cells with immunostaining) Stain intensity: Strong IN immunoreactivity: Positive (>90% cancer cells with immunostaining) [...] ??Excision with image-guided localization ?Lymph Node Sampling: ??[place] lymph node(s) ?Specimen Laterality: ??Left Tumor ?Histologic [...] ??DCIS not present in specimen Lymph Nodes ?[place] Lymph Nodes: [place] lymph node biopsy performed ?Number of [place] Nodes Examined: ??3 ?Number of Lymph Node(s) [...] Spinal stenosis > A Fib. Cardiology at [facility]. S/P successful cardioversion May 2018. [...] positive documented in this encounter Care Teams Dipping Machine Operator Relationship Specialty Start Date End Date Ana Her MD [facility] [address] [facility] [address] [place] [address] PCP - General 07/29/13 documented as of this encounter
--- OUTSIDE RECORDS SUMMARY | 2024-04-22 11:12 | XMS_ITS | Encounter Summary ---
[place] [address] Care Team Providers Care Entry Level Receptionist Name Role Phone Ana Her MD Primary Care Provider [phone] 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 * Consultation (Routine) - Closed Specialty Diagnoses / Procedures Referred By Christiano hackett Referred To Contact General Surgery Diagnoses Hiatal hernia Ana Her MD [address] [place] [address] [facility] Gen Surgery [address] [place] [phone] Referral ID Status Reason Start Date Expiration Date V isits Requested Visits Authorized [id number] Closed Consult, Test & Treat 09/23/2021 09/23/2022 6 6 Encounter Details Date Type Department Care Team (Late st Contact Info) Description 09/23/2021 Transcribe Orders eDH Incoming Referrals [phone] Ana Her MD [address] [place] [address] Hiatal hernia Social History Tobacco [...] gangrene documented in this encounter Care Teams Entry Level Receptionist Relationship Specialty Start Date End Date Ana Her MD [address] [place] [address] PCP - General 07/29/13 documented as of this encounter
--- OUTSIDE RECORDS SUMMARY | 2024-04-22 11:12 | XMS_ITS | Encounter Summary ---
Author Organization [facility] [place] [address] Care Team Providers Care Hog Buyer Name Role Phone Ana Her MD Primary Care Provider [phone] Reason for Visit * Reason Comments Follow Up Surgery Encounter Details Date Type Department Care Team (Late st Contact Info) Description 07/13/2017 1:30 PM EDT Office [place] [phone] Hiral Padgett, WENDY History of breast cancer Social History Tobacco [...] with image-guided localization ?Lymph Node Sampling: ?? [place] lymph node(s) ?Specimen Laterality: ?? Left Tumor [...] ?DCIS not present in specimen Lymph Nodes ?[place] Lymph Nodes: ?? [place] lymph node biopsy performed ?Number of [place] Nodes Examined: ?3 ?Number of Lymph Node(s) [...] breast documented in this encounter Care Teams Hog Buyer Relationship Specialty Start Date End Date Ana Her MD [facility] [address] [place] [address] PCP - General 07/29/13 documented as of this encounter
--- OUTSIDE RECORDS SUMMARY | 2024-04-22 11:12 | XMS_ITS | Encounter Summary ---
Author Organization [facility] [place] [address] Care Team Providers Care Bindery Cutter Operator Name Role Phone Ana Her MD Primary Care Provider [phone] Encounter Details Date Type Department Care Team (Late st Contact Info) Description 10/23/2017 9:43 AM EDT - 10/23/2017 11:59 PM EDT Hospital En[place] [phone] Hiral Padgett, WENDY History of breast cancer Discharge Disposition: Home [...] breast documented in this encounter Care Teams Bindery Cutter Operator Relationship Specialty Start Date End Date Ana Her MD [address] [place] [address] PCP - General 07/29/13 documented as of this encounter
--- OUTSIDE RECORDS SUMMARY | 2024-04-22 11:12 | XMS_ITS | Encounter Summary ---
Author Organization [facility] [place] [address] Care Team Providers Care Tack Driller Name Role Phone Ana Her MD Primary Care Provider [phone] 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 * Diagnostic Test (Routine) - Closed Specialty Diagnoses / Procedures Referred By Contac t Referred To Contact Radiology Diagnoses 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, estrogen receptor positive Osteopenia of neck of femur, unspecified laterality half-way current 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 Procedures DXA Central Spine, Hip, and/or Whole Body (Generic) Ricky Lowry MD [facility] HEMATOLOGY/[place] [address] [facility] Rad Xray [address] [place] [address] [place] [address] Referral ID Status Reason Start Date Expiration Date V isits Requested Visits Authorized [id number] Closed Specialty Service Requested 05/22/2020 11/19/2021 1 1 Reason for Visit * Diagnostic Test (Routine) - Closed Specialty Diagnoses / Procedures Referred By Contac t Referred To Contact Radiology Diagnoses 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, estrogen receptor positive Osteopenia of neck of femur, unspecified laterality 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 Procedures DXA Central Spine, Hip, and/or Whole Body (Generic) Ricky Lowry MD [facility] HEMATOLOGY/[place] [address] [facility] Rad Xray [address] [place] [address] Dr SeoNADINE briscoe [phone] Referral ID Status Reason Start Date Expiration Date V isits Requested Visits Authorized [id number] Closed Specialty Service Requested 05/22/2020 11/19/2021 1 1 Encounter Details Date Type Department Care Team (Latest Contact Info) Description 11/15/2020 2:25 PM EDT - 11/15/2020 11:59 PM EDT Hospital Encounter XRay at [address] [place] [address] Ricky Lowry MD 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, estrogen receptor positive; Osteopenia of neck of femur, unspecified laterality; half-way current 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 Paper copies will be sent to providers without E- access. If you have received this report without the data sheet and do not have access to [employer], please contact Radiology Water Taxi Ferry Operator at [phone] Thursday thru Thursday 8am-4pm. Thank you for letting us participate in the care of this patient. ??If you are a health care provider and have any questions regarding this report, please contact the number below. ??For patients who have questions please contact the health health care facilities inspector that requested your imaging first. ? Electronically signed by: Nat Epperson MD, [facility] ([phone]), at 11/19/2020 1:09 PM Narrative 11/19/2020 1:09 [...] BMD measurements and plots are available in [employer] the imaging tab. Paper copies will be sent to providers without - access.If you have received this report without the data sheet and do not haveaccess to [facility], please contact Radiology Water Taxi Ferry Operator at [phone] Thursday thrrid 8am-4pm. Thank you for letting us participate in the care of this patient. If youare a health care provider and have any questions regarding this report,please contact the number below. For patients who have questions please contactthe health health care facilities inspector that requested your imaging first. Electronically signed by: Nat Epperson MD, [facility]([phone]), at 11/19/2020 1:09 PM Ricky Lowry MD IMG DEXA ORDERABLES documented in this encounter Visit Diagnoses Diagnosis 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, estrogen receptor positive Osteopenia of neck of femur, unspecified laterality half-way current 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 Use 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s documented in this encounter Care Teams Tack Driller Relationship Specialty Start Date End Date Ana Her MD [address] [place] [address] PCP - General 07/29/13 documented as of this encounter
--- OUTSIDE RECORDS SUMMARY | 2024-04-22 11:12 | XMS_ITS | Encounter Summary ---
[place] [address] Care Team Providers Care Wind Tunnel Technician Name Role Phone Ana Her MD Primary Care Provider [phone] Encounter Details Date Type Department Care Team (Late st Contact Info) Description 12/24/2021 Telephone [place] [address] Chelsie Lauren Social History Tobacco Use Types [...] on filedocumented in this encounter Care Teams Wind Tunnel Technician Relationship Specialty Start Date End Date Ana Her MD [address] [place] [address] PCP - General 07/29/13 documented as of this encounter
--- OUTSIDE RECORDS SUMMARY | 2024-04-22 11:12 | XMS_ITS | Encounter Summary ---
Author Organization [facility] [place] [address] Care Team Providers Care Snack Bar Attendant Name Role Phone Ana Her MD Primary Care Provider [phone] Encounter Details Date Type Department Care Team (Late st Contact Info) Description 01/08/2022 7:42 AM EDT Anesthesia [place] [address] Alisa Naqvi MD [facility] [place] [address] Anesthesia Record Procedure Summary Procedure Name Responsible [...] cephalic vein (lateral side of arm), left; bqxl-bpn-kcbtks catheter system; Anatomical Landmarks; 20 gauge; Joslyn [...] Procedure Summary Date: 01/08/22 Room / Location: [facility] OR [address] [place] [address] MAIN OR Anesthesia Start: 741 Anesthesia Stop: 825 Procedure: EGD, UPPER GI ENDOSCOPY (N/A Trunk) Diagnosis: (Hiatal hernia) Surgeons: Laura Will MD Responsible Provider: Alisa Naqvi MD Anesthesia Type: general ASA Status: 3 All Anesthesia Providers: Anesthesiologist: Alisa Naqvi MD Group Underwriter: Nghia Valerio MD Vitals Value Taken Time BP 98/56 01/08/22 0823 Temp Pulse Resp SpO2 99 % 01/08/22826 Pain Level Vitals shown include unvalidated device data. Patient [facility] Level of Consciousness: Conscious but Sleepy Pain [...] at [facility] MAIN OR Social History Tobacco Use [...] mg documented in this encounter Care Teams Snack Bar Attendant Relationship Specialty Start Date End Date Ana Her MD [facility] [address] [facility] [address] [place] [address] PCP - General 07/29/13 documented as of this encounter
--- OUTSIDE RECORDS SUMMARY | 2024-04-22 11:12 | XMS_ITS | Encounter Summary ---
Author Organization [place] [address] Care Team Providers Care Teacher Theater Arts Name Role Phone Ana Her MD Primary Care Provider [phone] Encounter Details Date Type Department Care Team (Latest Contact Info) Description 06/11/2021 8:41 AM EST - 06/11/2021 11:59 PM [facility] Hospital Encounter Mammography/[place] [phone] Jeanine Lobato APRN [facility] [place] [address] Malignant neoplasm of lower-outer quadrant of left [...] Take 40 mg by mouth daily. omega 9-avj-rzw-fish-turm salty 417 mg-120 mg- 276 mg-600 mg [...] who have questions please contact the health wound care nurse that requested your imaging first. ? Jeanine Lobato DATA ENTRY SUPERVISOR IMG MAMMO ORD ERABLES documented in this encounter Visit Diagnoses Diagnosis 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, estrogen receptor positive Breast cancer screening by mammogram documented in this encounter Care Teams Teacher Theater Arts Relationship Specialty Start Date End Date Ana Her MD [address] [place] [address] PCP - General 07/29/13 documented as of this encounter
--- OUTSIDE RECORDS SUMMARY | 2024-04-22 11:12 | XMS_ITS | Encounter Summary ---
Author Organization [facility] [place] [address] Care Team Providers Care Manager Corporate Marketing Name Role Phone Ana Her MD Primary Care Provider [phone] Encounter Details Date Type Department Care Team (Latest Contact Info) Description 05/31/2019 10:16 AM EST - 05/31/2019 11:59 PM EST Hospital Encounter Mammography/[place] [phone] Jeanine Lobato APRN [facility] [place] [address] History of breast cancer Discharge Disposition: Home [...] BIRADS CATEGORY 2: Benign findings. * ??[employer] and [employer] of [...] breast documented in this encounter Care Teams Manager Corporate Marketing Relationship Specialty Start Date End Date Ana Her MD [address] [place] [address] PCP - General 07/29/13 documented as of this encounter
--- OUTSIDE RECORDS SUMMARY | 2024-04-22 11:12 | XMS_ITS | Encounter Summary ---
Author Organization [facility] [place] [address] Care Team Providers Care Community Youth Secretary Name Role Phone Ana Her MD Primary [...] and/or Whole Body (Generic) Ricky Lowry MD [facility] DR HEMATOLOGY/[place] [address] [facility] Rad Xray [address] [place] [address] [place] [address] Referral ID Status Reason Start Date Expiration Date V isits Requested Visits Authorized [id number] Closed Specialty Service Requested 05/22/2020 11/19/2021 1 1 Encounter Details Date Type Department Care Team (Late st Contact Info) Description 05/22/2020 1:15 PM EST Office Visit Hematology and Oncology at [facility] [place] [address] Ricky Lowry MD 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, estrogen receptor positive; Osteopenia of neck of femur, unspecified laterality; 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 Cardiology at [facility]. S/P successful cardioversion May 2018. [...] BMD measurements and plots are available in [employer] under the imaging tab. Paper copies will be sent to providers without [employer] access. If you have received this report without the data sheet and do not have access to [employer], please contact Radiology [facility] at [phone] Thursday thru Thursday 8am-4pm. Thank you for letting us participate in the care of this patient. ??If you are a health care provider and have any questions regarding this report, please contact the number below. ??For patients who have questions please contact the health respite care provider that requested your imaging first. ? Electronically signed by: Nat Epperson MD, [facility] ([phone]), at 11/19/2020 1:09 PM Narrative 11/19/2020 1:09 [...] bone mass orosteopoenia. . ......... Comparison......... Previous scan:2018 Total spine: Compared to the previous, 1.9 [...] BMD measurements and plots are available in [employer] the imaging tab. Paper copies will be sent to providers without [employer] access.If you have received this report without the data sheet and do not haveaccess to [employer], please contact Radiology Lead Sql Developer at [phone] Thursday thruFriday 8am-4pm. Thank you for letting us participate in the care of this patient. If youare a health care provider and have any questions regarding this report,please contact the number below. For patients who have questions please contactthe health respite care provider that requested your imaging first. 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
--- OUTSIDE RECORDS SUMMARY | 2024-04-22 11:12 | XMS_ITS | Encounter Summary ---
Author Organization [place] [address] Care Team Providers Care Graphite Mill Operator Name Role Phone Ana Her MD Primary Care Provider [phone] Encounter Details Date Type Department Care Team (Late st Contact Info) Description 04/23/2017 Notes [place] [address] Marjorie Ariza Social History Tobacco Use Types [...] Marjorie Ariza - 04/23/2017 2:43 PM EST It Security Engineer Park Interpretive Specialist met with pt after consultation with medical [...] on filedocumented in this encounter Care Teams Graphite Mill Operator Relationship Specialty Start Date End Date Ana Her MD [address] [facility] 1 [place] [address] PCP - General 07/29/13 documented as of this encounter
--- OUTSIDE RECORDS SUMMARY | 2024-04-22 11:12 | XMS_ITS | Encounter Summary ---
[place] [address] Care Team Providers Care Faucet Polisher Name Role Phone Ana Her MD Primary Care Provider [phone] Encounter Details Date Type Department Care Team (Late st Contact Info) Description 05/10/2018 2:15 PM EST Office Visit [place] [address] Hiral Padgett, WENDY History of breast cancer [...] with image-guided localization ?Lymph Node Sampling: ?? [place] lymph node(s) ?Specimen Laterality: ?? Left Tumor [...] ?DCIS not present in specimen Lymph Nodes ?[place] Lymph Nodes: ?? [place] lymph node biopsy performed ?Number of [place] Nodes Examined: ?3 ?Number of Lymph Node(s) [...] mammogram today is cat 2. Leaving for [place] later today for a cardiac ablation/a fib at [facility]. Objective: Physical Exam Constitutional: She is oriented [...] breast documented in this encounter Care Teams Faucet Polisher Relationship Specialty Start Date End Date Ana Her MD [address] [place] [address] PCP - General 07/29/13 documented as of this encounter
--- OUTSIDE RECORDS SUMMARY | 2024-04-22 11:12 | XMS_ITS | Encounter Summary ---
[place] [address] Care Team Providers Care Strategic Intelligence Officer Name Role Phone Ana Her MD Primary Care Provider [phone] Encounter Details Date Type Department Care Team (Late st Contact Info) Description 05/06/2017 Telephone Radiation Oncology at [address] [address] Maria A Antonio RN Social [...] on filedocumented in this encounter Care Teams Strategic Intelligence Officer Relationship Specialty Start Date End Date Ana Her MD [address] [facility] 1 [place] [address] PCP - General 07/29/13 documented as of this encounter
--- OUTSIDE RECORDS SUMMARY | 2024-04-22 11:13 | XMS_ITS | Encounter Summary ---
Author Organization [facility] Address [place] [address] Care Team Providers Care Human Anatomy Teacher Name Role Phone Unavailable Primary Care Provider Unavailabl e Encounter Details Date Type Department Care Team (Latest Contact Info) Description 12/19/2009 - 12/19/2009 11:59 PM EDT Hospital Encounter Radiology Library at [facility] [place] [place] [address] Jackie Cisneros APRN [facility] [place] [address] Discharge Disposition: Home Social History Tobacco Use [...] Only Mammo (12/19/2009 12:00 AM EDT) Narrative [facility] - 02/23/2017 3:29 PM EDT This exam is for storage only and is auto-finalizing. Jackie Cisneros APRN IMG FILM LIBRARY ORD ERABLES NADINE Sethi documented in this encounter Visit Diagnoses Not on filedocumented in this encounter
--- OUTSIDE RECORDS SUMMARY | 2024-04-22 11:13 | XMS_ITS | Encounter Summary ---
[place] [address] Care Team Providers Care Outside Physical Damage Appraiser Name Role Phone Ana Her MD Primary Care Provider [phone] Reason for Visit * Reason Comments Low Back Pain Bilateral Hip Pain when standing or wal jaquelin Encounter Details Date Type Department Care Team (Late st Contact Info) Description 09/12/2014 11:20 AM EDT Office [place] [id number] Kris Benoit MD Neurogenic claudication due to lumbar spinal stenosis [...] pain free. Lumbar MRI from 08/16/2014 from [facility] is notable for multilevel degenerative changes L2-L3, L3-L4, L4-L5, L5-S1. At L2-L3, she has yrxvkkon-lm-upzmbg spinal stenosis, but she has no leg [...] claudication documented in this encounter Care Teams Outside Physical Damage Appraiser Relationship Specialty Start Date End Date Ana Her MD [address] [place] [address] PCP - General 07/29/13 documented as of this encounter
--- OUTSIDE RECORDS SUMMARY | 2024-04-22 11:13 | XMS_ITS | Encounter Summary ---
Author [place] [address] Care Team Providers Care Rhit Name Role Phone Ana Her MD Primary Care Provider [phone] Encounter Details Date Type Department Care Team (Late st Contact Info) Description 03/18/2017 Telephone [place] [address] Bryanna Marsh RN Social History Tobacco Use [...] notes she had a colonoscopy done at [facility] and developed atrial fibrillation; she has been started on blood thinners. She was just discharged from the [facility] hospital, and called us to let us [...] give Digna a call her number is [phone]. The below is from Dr. Chen visit [...] on filedocumented in this encounter Care Teams Rhit Relationship Specialty Start Date End Date Ana Her MD [address] [place] [address] PCP - General 07/29/13 documented as of this encounter
--- OUTSIDE RECORDS SUMMARY | 2024-04-22 11:13 | XMS_ITS | Encounter Summary ---
Author Organization [facility] [place] [address] Care Team Providers Care Salesperson Neckties Name Role Phone Ana Her MD Primary Care Provider [phone] Encounter Details Date Type Department Care Team (Late st Contact Info) Description 03/30/2017 Notes [place] [address] January Ward MSW Social History Tobacco Use [...] was recently diagnosed with invasive mucinous carcinoma. [facility] attempted to meet with pt in Same Day surgery this morning but she was still in radiology. I spoke with her ex-, Keith, who states she will be staying with him tondenise. Their granddaughters are traveling from [place] and plan to accompany pt to see her recycling operator at [facility] tomorrow. Pt has been followed by this physician for her cardiac problems. [facility] will continue to provide support and resources to pt. documented in this encounter Plan of Treatment Not on file documented as of this encounter Visit Diagnoses Not on filedocumented in this encounter Care Teams Salesperson Neckties Relationship Specialty Start Date End Date Ana Her MD [address] [facility] [place] [address] PCP - General 07/29/13 documented as of this encounter
--- OUTSIDE RECORDS SUMMARY | 2024-04-22 11:13 | XMS_ITS | Encounter Summary ---
[place] [address] Care Team Providers Care Child Protective Investigator Name Role Phone Ana Her MD Primary Care Provider [phone] 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 * Surgical (Routine) - Closed Specialty Diagnoses / Procedures Referred By Christiano hackett Referred To Contact Orthopaedics Diagnoses Lumbar spinal stenosis Michelle Hurtado APRN [facility] [place] [address] [facility] [place] [address] [place] [address] Referral ID Status Reason Start Date Expiration Date V isits Requested Visits Authorized [id number] Closed Consult, Test & Treat 09/08/2014 09/08/2015 3 3 Encounter Details Date Type Department Care Team (Late st Contact Info) Description 09/08/2014 Orders [place] [address] Michelle Hurtado SUPERVISING PRODUCER [facility] [place] [address] Lumbar spinal stenosis Social History Tobacco Use [...] claudication documented in this encounter Care Teams Child Protective Investigator Relationship Specialty Start Date End Date Ana Her MD [facility] [address] [facility] 1 [place] [address] PCP - General 07/29/13 documented as of this encounter
--- OUTSIDE RECORDS SUMMARY | 2024-04-22 11:13 | XMS_ITS | Encounter Summary ---
[place] [address] Care Team Providers Care Inventory Technician Name Role Phone Ana Her MD Primary Care Provider Encounter Details Date Type Department Care Team (Late st Contact Info) Description 07/26/2013 [place] [address] Ana Her MD [facility] [address] [place] [address] Social History Tobacco Use Types Packs/Day Years [...] is a Non-reportable exam Ana Her MD [facility] FILM LIBRARY ORD ERABLES documented in this encounter Visit Diagnoses Not on filedocumented in this encounter Care Teams Inventory Technician Relationship Specialty Start Date End Date Ana Her MD [address] [place] [address] PCP - General 07/29/13 documented as of this encounter
--- OUTSIDE RECORDS SUMMARY | 2024-04-22 11:13 | XMS_ITS | Encounter Summary ---
Author Organization [facility] Address [facility] [place] [address] Care Team Providers Care Metal Casket Assembler Name Role Phone Ana Her MD Primary Care Provider [phone] Encounter Details Date Type Department Care Team (Latest Contact Info) Description 02/17/2017 - 02/17/2017 12:14 AM EDT Hospital Encounter Radiology Library at [facility] [place] [place] [address] Maryam Yee MD [facility] [place] [address] Screening breast examination Discharge Disposition: Home Social [...] Only Mammo (02/17/2017 12:00 AM EDT) Narrative [facility] - 02/19/2017 1:59 PM EDT This exam is for storage only and is auto-finalizing. Maryam Yee MD IMG FILM LIBRARY O RDERABLES Performing Organization Address City/State/[facility] Co de Phone Number [place], [place] documented in this encounter Visit Diagnoses Diagnosis Screening breast examination Other screening breast examination documented in this encounter Care Teams Metal Casket Assembler Relationship Specialty Start Date End Date Ana Her MD [address] [place] [address] PCP - General 07/29/13 documented as of this encounter
--- OUTSIDE RECORDS SUMMARY | 2024-04-22 11:13 | XMS_ITS | Encounter Summary ---
Author Organization [facility] [place] [address] Care Team Providers Care Best Worker Name Role Phone Ana Her MD Primary Care Provider [phone] Encounter Details Date Type Department Care Team (Latest Contact Info) Description 02/25/2017 1:31 PM EDT Hospital [place] [address] Maryam Yee MD [facility] [place] [address] Abnormal mammogram Discharge Disposition: Home Social History [...] unspecified documented in this encounter Care Teams Best Worker Relationship Specialty Start Date End Date Ana Her MD [address] [place] [address] PCP - General 07/29/13 documented as of this encounter
--- OUTSIDE RECORDS SUMMARY | 2024-04-22 11:13 | XMS_ITS | Encounter Summary ---
Author Organization [facility] Address [facility] [place] [address] Care Team Providers Care Linux Systems Administrator Name Role Phone Unavailable Primary Care Provider Unavailabl e Encounter Details Date Type Department Care Team (Latest Contact Info) Description 01/29/2013 - 01/29/2013 11:59 PM EDT Hospital Encounter Radiology Library at [facility] [place] [address] Jackie Cisneros APRN [facility] [place] [address] Discharge Disposition: Home Social History Tobacco Use [...] Only Mammo (01/29/2013 12:00 AM EDT) Narrative [facility] - 02/23/2017 3:26 PM EDT This exam is for storage only and is auto-finalizing. Jackie Cisneros APRN IMG FILM LIBRARY ORD ERABLES NADINE Sethi documented in this encounter Visit Diagnoses Not on filedocumented in this encounter
--- OUTSIDE RECORDS SUMMARY | 2024-04-22 11:13 | XMS_ITS | Clinical Summary ---
Author Organization [facility] Address [address] [place] [address] Care Team Providers Care Transformation Architect Name Role Phone Unknown, Provider MD Primary [...] COVID-19 Vaccine ( season) 2024 Care Teams Transformation Architect Relationship Specialty Start Date End Date Unknown, Provider, PCP - General 01/13/14
--- OUTSIDE RECORDS SUMMARY | 2024-04-22 11:13 | XMS_ITS | Referral Summary ---
Author Organization [facility] Address [address] [place] [address] Care Team Providers Care Design Maintenance Engineer Name Role Phone Unknown, Provider MD Primary Care Provider Unava ilable Social History Tobacco Use Types Packs/Day Years Used Date Smoking Tobacco: Never Assessed Comments Unknown Sex and Gender Information Value Date Recorded Sex Assigned at Not on file Legal Sex Female 9:32 EDT Gender Identity Not on file Sexual Orientation Not on file Plan of Treatment Not on file Care Teams Design Maintenance Engineer Relationship Specialty Start Date End Date Unknown, Provider, PCP - General 01/13/14
--- OUTSIDE RECORDS SUMMARY | 2024-04-22 11:13 | XMS_ITS | Encounter Summary ---
Author Organization [facility] Address [facility] [place] [address] Care Team Providers Care Newcomer Hostess Name Role Phone Ana Her MD Primary Care Provider [phone] Encounter Details Date Type Department Care Team (Latest Contact Info) Description 02/23/2017 3:50 PM EDT - 02/23/2017 11:59 PM EDT Hospital Encounter Radiology Library [place] [address] Jackie Cisneros APRN [address] [place] [address] Left breast mass Discharge Disposition: Home Social [...] recommended. Please note: The interpretation of the [facility] Breast Imaging Radiologist subspecialist may differ from the original radiologists interpretation. This is usually not due to a deficiency of the original interpreting radiologist, rather due to the greater skill level afforded by sub-specialization in the field and/or reasonable variations in interpretations. If you have a concern regarding the D-H interpretation you may contact the [facility] Breast Drop Man Office at . I have personally reviewed [...] the care of this patient. STUDIES FROM: [facility] DATES: Screening mammogram 02/12/2017, diagnostic mammogram [...] alter the care of thispatient. STUDIES FROM: [facility] DATES: Screening mammogram 02/12/2017, diagnostic mammogram [...] recommended. Please note: The interpretation of the [facility] BreastImaging Radiologist subspecialist may differ from the original radiologists interpretation. This is usually not due to a deficiency of the original interpreting radiologist, rather due to the greater skill level affordedby sub-specialization in the field and/or reasonable variations ininterpretations. If you have a concern regarding the D-H interpretation [facility] at . I have personally reviewed the image(s) and the residents interpretationand agree with the findings, ROBERT THOMPSON at 02/24/2017 8:41 AM 8:41 AM Jackie Cisneros WENDY IMG OUTSIDE INTERPRE TATION ORDERABLES documented in this encounter Visit Diagnoses Diagnosis Left breast mass Lump or mass in breast documented in this encounter Care Teams Newcomer Hostess Relationship Specialty Start Date End Date Ana Her MD [address] [place] [address] PCP - General 07/29/13 documented as of this encounter
--- OUTSIDE RECORDS SUMMARY | 2024-04-22 11:13 | XMS_ITS | Encounter Summary ---
[place] [address] Care Team Providers Care Shipwright Apprentice Name Role Phone Ana Her MD Primary Care Provider Encounter Details Date Type Department Care Team (Latest Contact Info) Description 03/30/2017 7:27 AM EST - 03/30/2017 1:37 PM EST Hospital Encounter [place] [phone] Brant Chen MD [facility] [place] [address] Discharge Disposition: Home Social History Tobacco Use [...] shower 24 hours Activity as tolerated Call [phone] with any questions Do not soak incision [...] Alma Delia had a bone scan in [place] which was read as possible metastasis in the left tibia. Of note- she fractured this area recently. She has recovered well. ?? PMH HNT NIDDM not on meds Spinal stenosis Fractured left tibial plateau December, GERD ?? FH: Maternal first cousin with breast cancer Brother with rectal cancer Sister with PE ? SH: lives alone. Has good support from sisters who live in [place]. Non smoker. Has a son who lives [...] Chen MD - 03/30/2017 12:27 PM EST [facility] Operative Note Patient Name: Digna Olson : [id number] MR#: [id number] Case Date: 03/30/2017 Surgeon: Surgeon(s) and Role: [...] [place] [address]. Remaining count within the axilla was 1982. [...] PM EST 03/30/2017 12:09 PM EST Narrative [facility] - 03/30/2017 12:09 PM EST Specimen requisition ordered. ??Separate Pathology report to follow Brant Chen MD PATHOLOGY/CYTOLOGY ORDERABLES [facility] [place] [address] * Specimen to Pathology (surgical or derm) (03/30/2017 12:08 PM EST) AP Specimen 03/30/2017 12:0 8 PM EST 03/30/2017 12:08 PM EST Narrative [facility] - 03/30/2017 12:08 PM EST Specimen requisition ordered. ??Separate Pathology report to follow Brant Chen MD PATHOLOGY/CYTOLOGY ORDERABLES Performing Organization Address [facility] Co [place] [address] * Specimen to Pathology (surgical or derm) (03/30/2017 12:00 PM EST) AP Specimen 03/30/2017 12:0 0 PM EST 03/30/2017 12:00 PM EST Narrative [facility] - 03/30/2017 12:00 PM EST Specimen requisition ordered. ??Separate Pathology report to follow Brant Chen MD PATHOLOGY/CYTOLOGY ORDERABLES Performing Organization Address [facility] Co de Phone Number [place] [phone] * Specimen to Pathology (surgical or derm) (03/30/2017 11:51 AM EST) AP Specimen 03/30/2017 11:5 1 AM EST 03/30/2017 11:51 AM EST Narrative [facility] - 03/30/2017 11:51 AM EST Specimen requisition ordered. ??Separate Pathology report to follow Brant Chen MD PATHOLOGY/CYTOLOGY ORDERABLES Performing Organization Address [facility] [place] [address] * Surgical Pathology Report (03/30/2017 11:50 AM EST) Final Diagnosis [id number] ? Location: [facility]; [facility]; A The signing pathologist has (i) examined the relevant preparation(s) for the specimen(s) and (ii) rendered or confirmed the diagnosis(es). . ?Surgical Pathology DIAGNOSIS A,B - See Synoptic C - Left breast, Deep/lateral margin re-excision - ?Benign fatty breast tissue. D - Left breast, Superficial margin re-excision - ?Benign fatty breast tissue. See Note Note - [place] ink (indicating additional cranial margin) is also present on this superficial margin re-excision. ---- Specimen Parts: ?? A - Left axilliary sentinel node B - Left breast partial mastectomy Specimen ? Procedure: ??Excision with image-guided localization ? Lymph Node Sampling: ?? [place] lymph node(s) ? Specimen Laterality: ?? Left [...] not present in specimen Lymph Nodes ? [place] Lymph Nodes: ?? [place] lymph node biopsy performed ? Number of [place] Nodes Examined: ?3 ? Number of Lymph [...] Chávez DO Verified: ??04/01/2017 ?Pathologist Performed at: ??-[facility] Dept. of Pathology, [place], [place] CLINICAL INFORMATION Specimen Submitted: A - [...] and there are ??no close margins. per [facility] Radiology . Specimen Description: According to [...] 0.8 x 0.4 x 0.4 cm. Color: [place] and yellow. Consistency: Soft. Location: Slices III and IV. Nearest Margin: 0.6 cm to the cranial margin. Other Margins: 0.8 cm to the deep margin, 1.0 cm to the superficial margin, ? > 2 cm from all other margins. OTHER Parenchyma: Predominately fatty with scant fibrous tissue. Wire/Clip: Biopsy marker clip identified within slice IV. SECTIONS/PROCESSI NG: (1) telemarketing representative slice I, lateral margin; (2) slice III, lesion to cranial margin; (3-5) remainder of slice III; (6) slice IV, lesion to cranial margin (clip); (7-8) remainder of slice IV; (9) telemarketing representative slice V; (10) telemarketing representative slice X, medial margin. (R10) Ischemic [...] sectioned. (T3) ??sns 04/01/2017 9:38 AM EST [facility] BREAST STRUCTURE / Unknown 03/30/2017 11:50 AM EST 03/30/2017 11:50 AM EST BREAST STRUCTURE / Unknown 03/30/2017 11:50 AM EST 03/30/2017 11:50 AM EST BREAST STRUCTURE / Unknown 03/30/2017 11:50 AM EST 03/30/2017 11:50 AM EST BREAST STRUCTURE / Unknown 03/30/2017 11:50 AM EST 03/30/2017 11:50 AM EST Brant Chen MD PATHOLOGY/CYTOLOGY ORDERABLES [facility] [place] [address] * Mammo Direct Digital Left (03/30/2017 9:15 [...] Routine documented in this encounter Care Teams Shipwright Apprentice Relationship Specialty Start Date End Date Ana Her MD [address] [place] [address] PCP - General 07/29/13 documented as of this encounter
--- OUTSIDE RECORDS SUMMARY | 2024-04-22 11:13 | XMS_ITS | Encounter Summary ---
Author Organization [facility] Address [facility] [place] [address] Care Team Providers Care Car Rental Clerk Name Role Phone Unavailable Primary Care Provider Unavailabl e Encounter Details Date Type Department Care Team (Latest Contact Info) Description 12/25/2010 - 12/25/2010 11:59 PM EDT Hospital Encounter Radiology Library [place] [facility] [place] [address] Jackie Cisneros APRN [facility] [place] [address] [place] [address] Discharge Disposition: Home Social History Tobacco Use [...] Only Mammo (12/25/2010 12:00 AM EDT) Narrative [facility] - 02/23/2017 3:27 PM EDT This exam is for storage only and is auto-finalizing. Jackie Cisneros APRN IMG FILM LIBRARY ORD ERABLES NADINE Sethi documented in this encounter Visit Diagnoses Not on filedocumented in this encounter
--- OUTSIDE RECORDS SUMMARY | 2024-04-22 11:13 | XMS_ITS | Encounter Summary ---
Author Organization [facility] [place] [address] Care Team Providers Care Truck Safety Inspector Name Role Phone Ana Her MD Primary Care Provider Encounter Details Date Type Department Care Team (Late st Contact Info) Description 03/30/2017 9:30 AM EST - 03/30/2017 11:28 AM EST Surgery [place] [phone] Brant Chen MD [facility] [place] [address] MASTECTOMY PARTIAL (WRVU 10.13) Social History Tobacco [...] shower 24 hours Activity as tolerated Call [phone] with any questions Do not soak incision [...] 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 She has no known breast masses, no adenopathy, no nipple discharge. ?? Alma Delia had a bone scan in [place] which was read as possible metastasis in the left tibia. Of note- she fractured this area recently. She has recovered well. ?? PMH HNT NIDDM not on meds Spinal stenosis Fractured left tibial plateau [place], 2017 GERD ?? FH: Maternal first cousin with breast cancer Brother with rectal cancer Sister with PE ? SH: lives alone. Has good support from sisters who live in [place]. Non smoker. Has a son who lives [...] Chen MD - 03/30/2017 12:27 PM EST [facility] Operative Note Patient Name: Digna Olson : [id number] MR#: [id number] Case Date: 03/30/2017 Surgeon: Surgeon(s) and Role: [...] [place] [address]. Remaining count within the axilla was 1982. [...] PM EST 03/30/2017 12:09 PM EST Narrative [facility] - 03/30/2017 12:09 PM EST Specimen requisition ordered. ??Separate Pathology report to follow Brant Chen MD PATHOLOGY/CYTOLOGY ORDERABLES [facility] [place] [address] * Specimen to Pathology (surgical or derm) (03/30/2017 12:08 PM EST) AP Specimen 03/30/2017 12:0 8 PM EST 03/30/2017 12:08 PM EST Narrative [facility] - 03/30/2017 12:08 PM EST Specimen requisition ordered. ??Separate Pathology report to follow Brant Chen MD PATHOLOGY/CYTOLOGY ORDERABLES Performing Organization Address [facility] Co de Phone Number [facility] [place] [address] * Specimen to Pathology (surgical or derm) (03/30/2017 12:00 PM EST) AP Specimen 03/30/2017 12:0 0 PM EST 03/30/2017 12:00 PM EST Narrative [facility] - 03/30/2017 12:00 PM EST Specimen requisition ordered. ??Separate Pathology report to follow Brant Chen MD PATHOLOGY/CYTOLOGY ORDERABLES Performing Organization Address [facility] [place] [address] * Specimen to Pathology (surgical or derm) (03/30/2017 11:51 AM EST) AP Specimen 03/30/2017 11:5 1 AM EST 03/30/2017 11:51 AM EST Narrative [facility] - 03/30/2017 11:51 AM EST Specimen requisition ordered. ??Separate Pathology report to follow Brant Chen MD PATHOLOGY/CYTOLOGY ORDERABLES Performing Organization Address [facility] Co de Phone Number [facility] [place] [phone] * Surgical Pathology Report (03/30/2017 11:50 AM EST) Final Diagnosis [id number] ? Location: [facility]; [facility]; A The signing pathologist has (i) examined the relevant preparation(s) for the specimen(s) and (ii) rendered or confirmed the diagnosis(es). . ?Surgical Pathology DIAGNOSIS A,B - See Synoptic C - Left breast, Deep/lateral margin re-excision - ?Benign fatty breast tissue. D - Left breast, Superficial margin re-excision - ?Benign fatty breast tissue. See Note Note - [place] ink (indicating additional cranial margin) is also present on this superficial margin re-excision. ---- Specimen Parts: ?? A - Left axilliary sentinel node B - Left breast partial mastectomy Specimen ? Procedure: ??Excision with image-guided localization ? Lymph Node Sampling: ?? [place] lymph node(s) ? Specimen Laterality: ?? Left [...] not present in specimen Lymph Nodes ? [place] Lymph Nodes: ?? [place] lymph node biopsy performed ? Number of [place] Nodes Examined: ?3 ? Number of Lymph [...] Chávez DO Verified: ??04/01/2017 ?Pathologist Performed at: ??-[facility] Dept. of Pathology, [place], [place] CLINICAL INFORMATION Specimen Submitted: A - [...] and there are ??no close margins. per [facility] Radiology . Specimen Description: According [...] 0.8 x 0.4 x 0.4 cm. Color: [place] and yellow. Consistency: Soft. Location: Slices III and IV. Nearest Margin: 0.6 cm to the cranial margin. Other Margins: 0.8 cm to the deep margin, 1.0 cm to the superficial margin, ? > 2 cm from all other margins. OTHER Parenchyma: Predominately fatty with scant fibrous tissue. Wire/Clip: Biopsy marker clip identified within slice IV. SECTIONS/PROCESSI NG: (1) sales representatives slice I, lateral margin; (2) slice III, lesion to cranial margin; (3-5) remainder of slice III; (6) slice IV, lesion to cranial margin (clip); (7-8) remainder of slice IV; (9) sales representatives slice V; (10) sales representatives slice X, medial margin. (R10) Ischemic Time: [...] sectioned. (T3) ??sns 04/01/2017 9:38 AM EST [facility] BREAST STRUCTURE / Unknown 03/30/2017 11:50 AM EST 03/30/2017 11:50 AM EST BREAST STRUCTURE / Unknown 03/30/2017 11:50 AM EST 03/30/2017 11:50 AM EST BREAST STRUCTURE / Unknown 03/30/2017 11:50 AM EST 03/30/2017 11:50 AM EST BREAST STRUCTURE / Unknown 03/30/2017 11:50 AM EST 03/30/2017 11:50 AM EST Brant Chen MD PATHOLOGY/CYTOLOGY ORDERABLES [facility] [place] [address] * Mammo Direct Digital Left (03/30/2017 9:15 [...] Routine documented in this encounter Care Teams Truck Safety Inspector Relationship Specialty Start Date End Date Ana Her MD [address] [place] [address] PCP - General 07/29/13 documented as of this encounter
--- OUTSIDE RECORDS SUMMARY | 2024-04-22 11:13 | XMS_ITS | Encounter Summary ---
Author Organization [facility] [place] [address] Care Team Providers Care Over Short And Damage Clerk Name Role Phone Ana Her MD Primary Care Provider [phone] Encounter Details Date Type Department Care Team (Late st Contact Info) Description 02/27/2017 Orders [place] [address] Malika Chen MD [facility] [place] [address] Malignant neoplasm of left breast in female, [...] EDT) Glucose 139 65 - 199 mg/dL [facility] Comment:Diabetes: >=200 mg/d L plus symptoms Blood Urea Nitrogen 20(H) 8 - 18 mg/dL [facility] Creatinine 0.95 0.70 - 1.20 mg/dL [facility] Sodium 141 135 - 145 mmol/L [facility] Potassium 4.8 3.5 - 5.0 mmol/L [facility] Comment: Please note: ??Patients with WBC >100,000 may have falsely elevated Potassium levels. ??For accurate Potassium quantification in these patients send serum separator tube (gold top) for subsequent determinations. ??Contact the Clinical Chemistry Laboratory if there are any questions. Chloride 101 98 - 107 mmol/L [facility] Carbon Dioxide 26 22 - 31 mmol/L [facility] Anion Gap 14 5 - 15 mmol/L [facility] Calcium 9.3 8.5 - 10.5 mg/dL [facility] Protein, Total 6.9 6.1 - 8.0 gm/dL [facility] Albumin 4.2 3.2 - 5.2 gm/dL [facility] Aspartate Aminotransferase 17 0 - 30 unit/L [facility] Alanine Aminotransferase 16 0 - 30 unit/L [facility] Alkaline Phosphatase 75 40 - 104 unit/L [facility] Bilirubin, Total 0.5 0.2 - 1.3 mg/dL [facility] Est Glomerular Filtration Rate 58(L) >=60 [facility] Comment: The reported eGFR should be multiplied by 1.2 for patients. The MDRD is not an appropriate measure of renal function for patients with body mass extremes or in patients with acute kidney failure. http://[employer].MPSTOR/DHnkdep http://[employer].MPSTOR/DHMCnkf Blood specimen (specimen) 03/03/2017 7:50 AM EDT 03/03/2017 8:03 AM EDT Narrative Resulting Agency Comment Spec In Lab Malika Chen MD CHEMISTRY ORDERABLE S [facility] [place] [address] documented in this encounter Visit Diagnoses Diagnosis Malignant neoplasm of left breast in female, estrogen receptor positive, unspecified site of breast documented in this encounter Care Teams Over Short And Damage Clerk Relationship Specialty Start Date End Date Ana Her MD [address] [facility] 1 [place] [address] PCP - General 07/29/13 documented as of this encounter
--- OUTSIDE RECORDS SUMMARY | 2024-04-22 11:13 | XMS_ITS | Encounter Summary ---
[place] [address] Care Team Providers Care Lead Java Programmer Name Role Phone Ana Her MD Primary Care Provider [phone] Reason for Visit * Reason Onset Date Comments Referral 07/29/2013 Encounter Details Date Type Department Care Team (Late st Contact Info) Description 07/29/2013 Telephone [place] [phone] Sophia Palacios Referral Social History Tobacco Use [...] on filedocumented in this encounter Care Teams Lead Java Programmer Relationship Specialty Start Date End Date Ana Her MD [address] [facility] 1 [place] [address] PCP - General 07/29/13 documented as of this encounter
--- OUTSIDE RECORDS SUMMARY | 2024-04-22 11:13 | XMS_ITS | Encounter Summary ---
Author Organization [facility] [place] [address] Care Team Providers Care Snag Grinder Name Role Phone Ana Her MD Primary Care Provider [phone] Encounter Details Date Type Department Care Team (Latest Contact Info) Description 03/30/2017 8:30 AM [facility] Hospital [place] [address] Malika Chen MD [facility] [place] [address] Malignant neoplasm of upper-outer quadrant of left [...] documented in this encounter Results * Mammo [place] Node Injection (03/30/2017 9:01 AM EST) Anatomical [...] mCi documented in this encounter Care Teams Snag Grinder Relationship Specialty Start Date End Date Ana Her MD [address] [place] [address] PCP - General 07/29/13 documented as of this encounter
--- OUTSIDE RECORDS SUMMARY | 2024-04-22 11:13 | XMS_ITS | Encounter Summary ---
Author Organization [facility] Address [facility] [place] [address] Care Team Providers Care Forestry Pilot Name Role Phone Unavailable Primary Care Provider Unavailabl e Encounter Details Date Type Department Care Team (Latest Contact Info) Description 04/04/2005 - 04/04/2005 11:59 PM EST Hospital Encounter Radiology Library at [facility] [place] [address] Jackie iCsneros APRN [facility] [place] [place] [address] Discharge Disposition: Home Social History Tobacco Use [...]
--- OUTSIDE RECORDS SUMMARY | 2024-04-22 11:13 | XMS_ITS | Encounter Summary ---
Author Organization [facility] [place] [address] Care Team Providers Care Pipe Joints Supervisor Name Role Phone Aan Her MD Primary Care Provider [phone] Encounter Details Date Type Department Care Team (Late st Contact Info) Description 03/04/2017 Orders [place] [address] Malika Chen MD [facility] [place] [address] Malignant neoplasm of upper-outer quadrant of left [...] MD IMG MAMMO ORDERABLE S * Mammo [place] Node Injection (03/30/2017 9:01 AM EST) Anatomical [...] positive documented in this encounter Care Teams Pipe Joints Supervisor Relationship Specialty Start Date End Date Ana Her MD [address] [facility] 1 [place] [address] PCP - General 07/29/13 documented as of this encounter
--- OUTSIDE RECORDS SUMMARY | 2024-04-22 11:13 | XMS_ITS | Encounter Summary ---
Author Organization [facility] [place] [address] Care Team Providers Care Pmp Certified Project Manager Name Role Phone Ana Her MD Primary Care Provider [phone] Encounter Details Date Type Department Care Team (Late st Contact Info) Description 03/03/2017 Notes [place] [address] January Ward MSW Social History Tobacco Use Types Packs/Day Years Used Date Smoking Tobacco: Never Smokeless Tobacco: Never Sex and Gender Information Value Date Recorded Sex Assigned at Not on file Gender Identity Not on file Sexual Orientation Not on file documented as of this encounter Progress Notes * January Ward MSW - 03/03/2017 12:56 PM EDT OFFICE OF CARE MANAGEMENT/CONTINUING OPTICAL FABRICATOR Reason for referral: Digna Olson is a 71 year old, female who was seen in the multidisciplinarybreast care clinic for a surgical consult as she was recently diagnosed with ER/TX+, left breast, invasive mucinous carcinoma. After meeting with Dr. Chen, pt has decided to have a lumpectomy/SLNB. If pt needs radiation therapy, she will receive it at the [facility]. [facility] met with pt to complete a psychosocial assessment and to explain my role in the breast program. Pt was encouraged to contact me if she has any questions or concerns. Living arrangements/social supports: Pt lives alone in [place], [place]. She has support from her family and is accompanied to today's appt by her sisters who live in [place]. Employment/Insurance/Finances: Pt is retired and receives Social Security Usp Benefits. Pt has Medicare A and B [...] Antonia Oliva is the SW for the [facility]. Plan: [facility] will continue to follow pt to assess and assist with their psychosocial needs. DELONTE Moreno [facility]/[place] [phone] Pager #[phone] documented in this encounter Plan of Treatment Not on file documented as of this encounter Visit Diagnoses Not on filedocumented in this encounter Care Teams Pmp Certified Project Manager Relationship Specialty Start Date End Date Ana Her MD [address] [place] [address] PCP - General 07/29/13 documented as of this encounter
--- OUTSIDE RECORDS SUMMARY | 2024-04-22 11:13 | XMS_ITS | Encounter Summary ---
[place] [address] Care Team Providers Care Braille Proofreader Name Role Phone Ana Her MD Primary Care Provider [phone] Encounter Details Date Type Department Care Team (Late st Contact Info) Description 04/09/2017 Abstract Radiation Oncology at [address] [phone] Maria A Antonio, RN Social History Tobacco [...] on filedocumented in this encounter Care Teams Braille Proofreader Relationship Specialty Start Date End Date Ana Her MD [address] [place] [address] PCP - General 07/29/13 documented as of this encounter
--- OUTSIDE RECORDS SUMMARY | 2024-04-22 11:13 | XMS_ITS | Encounter Summary ---
Author Organization [facility] [place] [address] Care Team Providers Care Country Sales Manager Name Role Phone Ana Her MD Primary Care Provider [phone] Encounter Details Date Type Department Care Team (Late st Contact Info) Description 08/16/2014 Orders Only Functional Mu-Ism Program at [facility] [address] [place] [address] Khari Martínez MD Social History Tobacco Use Types Packs/Day Years [...] is a Non-reportable exam Khari Martínez MD IMG FILM LIBRARY ORD ERABLES documented in this encounter Visit Diagnoses Not on filedocumented in this encounter Care Teams Country Sales Manager Relationship Specialty Start Date End Date Ana Her MD [facility] [address] [facility] 1 [place] [address] PCP - General 07/29/13 documented as of this encounter
--- OUTSIDE RECORDS SUMMARY | 2024-04-22 11:13 | XMS_ITS | Encounter Summary ---
Author Organization [facility] [place] [address] Care Team Providers Care Burial Vault Maker Name Role Phone Ana Her MD Primary Care Provider [phone] Encounter Details Date Type Department Care Team (Latest Contact Info) Description 02/17/2017 12:15 AM EDT - 02/17/2017 11:59 PM EDT Hospital Encounter Radiology Library at [facility] [place] [address] Maryam Yee MD [facility] [place] [address] Screening breast examination Discharge Disposition: Home Social [...] Only Mammo (02/17/2017 12:15 AM EDT) Narrative [facility] - 02/19/2017 2:01 PM EDT This exam is for storage only and is auto-finalizing. Maryam Yee MD IMG FILM LIBRARY O RDERABLES [place], [place] documented in this encounter Visit Diagnoses Diagnosis Screening breast examination Other screening breast examination documented in this encounter Care Teams Burial Vault Maker Relationship Specialty Start Date End Date Ana Her MD [address] [place] [address] PCP - General 07/29/13 documented as of this encounter
--- OUTSIDE RECORDS SUMMARY | 2024-04-22 11:13 | XMS_ITS | Encounter Summary ---
Author Organization [facility] [place] [address] Care Team Providers Care Telegraph Operator Name Role Phone Ana Her MD Primary Care Provider [phone] Encounter Details Date Type Department Care Team (Latest Contact Info) Description 02/25/2017 1:36 PM EDT - 02/25/2017 2:58 PM EDT Hospital [place] [phone] Maryam Yee MD [facility] [place] [address] Abnormal mammogram Discharge Disposition: Home Social History [...] unspecified documented in this encounter Care Teams Telegraph Operator Relationship Specialty Start Date End Date Ana Her MD [address] [place] [address] [address] [place] [address] PCP - General 07/29/13 documented as of this encounter
--- OUTSIDE RECORDS SUMMARY | 2024-04-22 11:13 | XMS_ITS | Encounter Summary ---
Author Organization [facility] [place] [address] Care Team Providers Care Supervisor Labor Gang Name Role Phone Ana Her MD Primary Care Provider [phone] Encounter Details Date Type Department Care Team (Latest Contact Info) Description 02/25/2017 2:59 PM EDT - 02/25/2017 11:59 PM EDT Hospital [place] [phone] Enzo Burkett MD Abnormal finding on breast imaging Discharge Disposition: [...] invasive carcinoma. Enzo Burkett MD [facility] [place] * Surgical Pathology Report (02/25/2017 3:01 PM EDT) Final Diagnosis [id number] ? Location: 3L The signing pathologist has [...] FISH. ??Direct analysis was performed using the beRecruited Kit. ??Slide adequacy and signal enumeration were [...] factor receptor 2 testing in breast cancer: [place] Society of Clinical Oncology/College of [place] Pathologists clinical practice guideline update. J Clin Oncol. 2013 Nov . Reviewed by: Kyara Logan MD Change Attendant, Molecular Pathology _ Electronically signed by: ??Epifanio Serra MD Verified: ??03/04/2017 ?Pathologist Performed at: ??-[facility]. [place], [place], [place] ? Addendum ADDENDUM DISCUSSION Immunohistochemist ry Studies Specimen: Left breast, core needle biopsy (A1) ER immunoreactivity: Positive ( ??>90% cancer cells with immunostaining) Stain intensity: Strong . ADDENDUM DISCUSSION NH immunoreactivity: Positive ( ??>90% cancer cells with [...] The assays were performed according to the mid level java developer ' s instructions using Anti-ER (SP1) and Anti-NH (16) antibodies. Electronically signed by: ??Epifanio Serra MD Verified: ??02/27/2017 ?Pathologist Performed at: ??-[facility] Dept. 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 of Pathology, [place], [place] DISCUSSION Studies for ER, NH, and HER2 have been ordered; results will [...] g: (T4) ??elian 03/04/2017 2:01 PM EDT [facility] BREAST STRUCTURE / Unknown 02/25/2017 3:01 PM EDT 02/25/2017 3:01 PM EDT Enzo Burkett MD PATHOLOGY/CYTOLOGY O RDERABLES [facility] [place] [address] documented in this encounter Visit Diagnoses Diagnosis Abnormal finding on breast imaging Other (abnormal) findings on radiological examination of breast documented in this encounter Care Teams Supervisor Labor Gang Relationship Specialty Start Date End Date Ana Her MD [address] [place] [address] PCP - General 07/29/13 documented as of this encounter
--- OUTSIDE RECORDS SUMMARY | 2024-04-22 11:13 | XMS_ITS | Encounter Summary ---
Author Organization [facility] Address One [facility] [place] [address] Care Team Providers Care Operations Expert Name Role Phone Ana Her MD Primary Care Provider [phone] Encounter Details Date Type Department Care Team (Late st Contact Info) Description 09/13/2015 Interpretation Only Radiology 1 [facility] [place] [address] Unknown None Social History Tobacco Use Types [...] 6:56 AM EDT APD Historical Result Principal Human Service Worker: ??MAE ??ESCHBACH IMAGE-INTENSIFIER FILMS: INDICATION: ??Right L4 foraminotomy. FINDINGS: A total of 5.8 seconds of fluoro time was utilized by Geraldine Claros MD. ??Estimated dose is 5.96 mGy. ??Two image-intensifier films record the event. ??They show the lumbosacral junction in the lateral projection with a surgical instrument indicating the level of L4. ??No Radiologist was present for this exam. Mae Shelley DO TOBIN/mn [id number] Procedure Note Unknown - 11/01/2018 APD Historical Result Principal Human Service Worker: MAE SHELLEY IMAGE-INTENSIFIER FILMS: INDICATION: Right L4 foraminotomy. FINDINGS: A total of 5.8 seconds of fluoro time was utilized by Geraldine Claros MD. Estimated dose is 5.96 mGy. Two image-intensifier films record the event. They show thelumbosacral junction in the lateral projection with a surgical instrument indicating the level of L4.No Radiologist was present for this exam. Mae Shelley DO TOBIN/mn [id number] Unknown IMG FLUORO ORDERABLE S documented in this encounter Visit Diagnoses Not on filedocumented in this encounter Care Teams Operations Expert Relationship Specialty Start Date End Date Ana Her MD [address] [place] [address] PCP - General 07/29/13 documented as of this encounter
--- OUTSIDE RECORDS SUMMARY | 2024-04-22 11:13 | XMS_ITS | Encounter Summary ---
Author Organization [facility] Address [facility] [place] [address] Care Team Providers Care Pest Control Operator Name Role Phone Unavailable Primary Care Provider Unavailabl e Encounter Details Date Type Department Care Team (Latest Contact Info) Description 03/19/2006 - 03/19/2006 11:59 PM EST Hospital Encounter Radiology Library [place] [facility] [place] [address] Jackie Cisneros APRN [facility] [place] [place] [address] Discharge Disposition: Home Social History Tobacco Use [...]
--- OUTSIDE RECORDS SUMMARY | 2024-04-22 11:13 | XMS_ITS | Encounter Summary ---
[place] [address] Care Team Providers Care Emergency Veterinary Technician Name Role Phone Ana Her MD Primary Care Provider [phone] Encounter Details Date Type Department Care Team (Latest Contact Info) Description 03/03/2017 7:55 AM EDT Laboratory Appointment Lab [address] [place] [address] Malignant neoplasm of left breast in female, [...] 7:50 AM EDT) Neutrophil % 72.8 % [facility] Neutrophil Absolute 6.45(H) 1.70 - 6.10 x10(3)/mc L [facility] Lymph % 14.4 % [facility] Lymphocytes Abs 1.3 0.9 - 3.2 x10(3)/ L [facility] Monocyte % 5.6 % [facility] Monocyte Abs 0.5 0.3 - 0.9 x10(3)/ L [facility] Eos % 6.1 % [facility] Eosinophils Abs 0.5(H) 0.0 - 0.4 x10(3)/ L [facility] Basophil % 0.6 % [facility] Baso Absolute 0.0 0.0 - 0.1 x10(3)/ L [facility] Immature Gran % 0.50 % [facility] Comment: Immature granulocytes(IG's)percentage and absolute count will include metamyelocytes, myelocytes, and promyelocytes. Blood smears from CBCs yielding IG's will be scanned manually for concordance. If this scan disagrees with the automated IG or if promyelocytes are noted, a manual differential will be performed. Immature Gran Absolute 0.04 0.00 - 0.04 x10(3)/mc L [facility] Blood specimen (specimen) 03/03/2017 7:50 AM EDT 03/03/2017 8:03 AM EDT Narrative Resulting Agency Comment Spec In Lab Malika Chen MD HEMATOLOGY ORDERABL ES [facility] [place] [address] * (ABNORMAL) Hemogram (03/03/2017 7:50 AM EDT) White Blood Cell 8.8 4.0 - 9.5 x10(3)/mc L [facility] Red Blood Cell 3.80(L) 4.00 - 5.21 x10(6)/mc L [facility] Hemoglobin 12.3 11.7 - 15.5 gm/dL [facility] Hematocrit 36.3 35.7 - 45.8 % [facility] Mean Cell Volume 95.5(H) 82.6 - 94.4 fL [facility] Mean Cell Hemoglobin 32.4(H) 27.1 - 32.0 pg [facility] Mean Cell Hemoglobin Concentration 33.9 31.7 - 35.0 gm/dL [facility] Platelet 156 145 - 357 x10(3)/ L [facility] RDW Standard Deviation 48.3(H) 37.0 - 46.0 [facility]OR[facility] RDW coefficient of variation 13.9 11.5 - 14.1 % [facility] Mean Platelet Volume 11.9 7.6 - 12.9 fL [facility] NRBC% auto 0.0 % [facility] NRBC Absolute 0.000 0.000 - 0.000 x10(3)/ L [facility] Blood specimen (specimen) 03/03/2017 7:50 AM EDT 03/03/2017 8:03 AM EDT Narrative Resulting Agency Comment Spec In Lab Malika Chen MD HEMATOLOGY ORDERABL ES [facility] [place] [address] * (ABNORMAL) Comprehensive metabolic panel (non-fasting) (03/03/2017 [...] LABORATORY Est Glomerular Filtration Rate 58(L) >=60 [facility] Comment: The reported eGFR should be multiplied by 1.2 for patients. The MDRD is not an appropriate measure of renal function for patients with body mass extremes or in patients with acute kidney failure. http://[employer].[facility]/DHnkdep http://Agentek.com/DHMCnkf Blood specimen (specimen) 03/03/2017 7:50 AM EDT 03/03/2017 8:03 AM EDT Narrative Resulting Agency Comment Spec In Lab Malika Chen MD [place] [address] documented in this encounter Visit Diagnoses Diagnosis Malignant neoplasm of left breast in female, estrogen receptor positive, unspecified site of breast documented in this encounter Care Teams Emergency Veterinary Technician Relationship Specialty Start Date End Date Ana Her MD [address] [place] [address] PCP - General 07/29/13 documented as of this encounter
--- OUTSIDE RECORDS SUMMARY | 2024-04-22 11:13 | XMS_ITS | Encounter Summary ---
[place] [address] Care Team Providers Care Fourth Grade Teacher Name Role Phone Ana Her MD Primary Care Provider [phone] Reason for Visit * Reason Comments Low Back Pain Encounter Details Date Type Department Care Team (Late st Contact Info) Description 08/30/2014 8:35 AM EDT Office [place] [phone] Michelle Hurtado APRN [facility] [address] Neurogenic claudication due to lumbar spinal stenosis [...] this encounter Progress Notes * Michelle Hurtado, LOAD CHECKER - 08/30/2014 9:37 AM EDT CHIEF COMPLAINT: [...] activity. 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 MEDICATIONS & [...] care of this patient. Michelle Hurtado MS, LOAD CHECKER, FUR BLOWING MACHINE OPERATOR-C [facility] documented in this encounter Plan of Treatment Not on file documented as of this encounter Visit Diagnoses Diagnosis Neurogenic claudication due to lumbar spinal stenosis Spinal stenosis, lumbar region, with neurogenic claudication documented in this encounter Care Teams Fourth Grade Teacher Relationship Specialty Start Date End Date Ana Her MD [address] [place] [address] PCP - General 07/29/13 documented as of this encounter
--- OUTSIDE RECORDS SUMMARY | 2024-04-22 11:13 | XMS_ITS | Encounter Summary ---
[place] [address] Care Team Providers Care Cylinder Press Feeder Name Role Phone Ana Her MD Primary Care Provider [phone] Encounter Details Date Type Department Care Team (Late st Contact Info) Description 02/27/2017 Telephone Hematology [place] [phone] Argentina Sanchez RN Social History Tobacco Use [...] a 71 y.o. female with newly diagnosed ER/TX+/HER2 corey pending left breast invasive mucinous cancer (left breast U/S guided biopsy 02/25/2017 at [facility] Alma Delia sounds positive and has support. She will have someone accompany her to appointments. She appears to be coping well but is anxious to meet with a breast surgeon to determine a treatment plan. Alma Delia have a bone SPECT done 1-2 months ago at [facility] and her doctor there questioned [...] for her review (a link to the [facility] Early Stage Breast Cancer program). The Breast [...] on filedocumented in this encounter Care Teams Cylinder Press Feeder Relationship Specialty Start Date End Date Ana Her MD [address] [place] [address] PCP - General 07/29/13 documented as of this encounter
--- OUTSIDE RECORDS SUMMARY | 2024-04-22 11:13 | XMS_ITS | Encounter Summary ---
Author Organization [facility] Address [facility] [place] [address] Care Team Providers Care District Sales Manager Name Role Phone Ana Her MD Primary Care Provider [phone] Encounter Details Date Type Department Care Team (Latest Contact Info) Description 04/24/2014 - 04/24/2014 11:59 PM EST Hospital Encounter Radiology Library at [facility] [place] [address] Maryam Yee MD [facility] [place] [address] Screening breast examination Discharge Disposition: Home Social [...] Only Mammo (04/24/2014 12:00 AM EST) Narrative [facility] - 02/19/2017 1:46 PM EDT This exam is for storage only and is auto-finalizing. Maryam Yee MD IMG FILM LIBRARY O RDERABLES [place], [place] documented in this encounter Visit Diagnoses Diagnosis Screening breast examination Other screening breast examination documented in this encounter Care Teams District Sales Manager Relationship Specialty Start Date End Date Ana Her MD [address] [facility] [address] [place] [address] PCP - General 07/29/13 documented as of this encounter
--- OUTSIDE RECORDS SUMMARY | 2024-04-22 11:13 | XMS_ITS | Encounter Summary ---
Author Organization [facility] Address [facility] [place] [address] Care Team Providers Care Talent Partner Name Role Phone Ana Her MD Primary Care Provider [phone] Encounter Details Date Type Department Care Team (Latest Contact Info) Description 02/12/2017 - 02/12/2017 11:59 PM EDT Hospital Encounter Radiology Library at [facility] [place] [address] Maryam Yee MD [facility] [place] [address] Screening breast examination Discharge Disposition: Home Social [...] Only Mammo (02/12/2017 12:00 AM EDT) Narrative [facility] - 02/19/2017 1:47 PM EDT This exam is for storage only and is auto-finalizing. Maryam Yee MD IMG FILM LIBRARY O RDERABLES Performing Organization Address City/State/[facility] Co de Phone Number [place], [place] documented in this encounter Visit Diagnoses Diagnosis Screening breast examination Other screening breast examination documented in this encounter Care Teams Talent Partner Relationship Specialty Start Date End Date Ana Her MD [address] [place] [address] PCP - General 07/29/13 documented as of this encounter
--- OUTSIDE RECORDS SUMMARY | 2024-04-22 11:13 | XMS_ITS | Encounter Summary ---
Author Organization [facility] Address [facility] [place] [address] Care Team Providers Care Power Shovel Operator Helper Name Role Phone Ana Her MD Primary Care Provider [phone] Encounter Details Date Type Department Care Team (Latest Contact Info) Description 10/28/2016 - 10/28/2016 11:59 PM EDT Hospital Encounter Radiology Library at [facility] [place] [address] Ricky Lowry MD Discharge Disposition: Home Social History Tobacco Use [...] DXA Images (10/28/2016 12:00 AM EDT) Narrative [facility] - 04/24/2017 2:13 PM EST This exam is for storage only and is auto-finalizing. Ricky Lowry MD IMG FILM LIBRARY ORD ERABLES Performing Organization Address City/State/[facility] Co de Phone Number [place], [place] documented in this encounter Visit Diagnoses Not on filedocumented in this encounter Care Teams Power Shovel Operator Helper Relationship Specialty Start Date End Date Ana Her MD [address] [place] [address] PCP - General 07/29/13 documented as of this encounter
--- OUTSIDE RECORDS SUMMARY | 2024-04-22 11:13 | XMS_ITS | Encounter Summary ---
[place] [address] Care Team Providers Care Signal Person Name Role Phone Ana Her MD Primary Care Provider [phone] Encounter Details Date Type Department Care Team (Late st Contact Info) Description 03/30/2017 11:19 AM EST Anesthesia [place] [address] Bridgette Mclaughlin MD Collins, Sarah J, PERSONAL SECRETARY [address] [place] [address] Anesthesia Record Procedure Summary Procedure Name Responsible [...] 0815; median cubital vein (antecubital fossa), right; tije-[id number]-mhabpg catheter system; 20 gauge, 1 in length; [...] Bridgette Mclaughlin - 03/30/2017 2:13 PM EST [facility] Department of Anesthesiology Post-procedure Note Patient: Digna Olson Procedure Summary Date Anesthesia Start Anesthesia Stop Room / Location 03/30/17 [id number] [facility] OR 24 / MH MAIN [...] All Anesthesia Providers: Anesthesiologist: Bridgette Mclaughlin MD PERSONAL SECRETARY: Laura Koo CRNA Most Recent Vitals: 03/30/17 [...] risks discussed with patient. Plan discussed with PERSONAL SECRETARY. [facility] Staff Note documented in this encounter Plan [...] r documented in this encounter Care Teams Signal Person Relationship Specialty Start Date End Date Ana Her MD [facility] [address] [place] [address] PCP - General 07/29/13 documented as of this encounter
--- OUTSIDE RECORDS SUMMARY | 2024-04-22 11:13 | XMS_ITS | Encounter Summary ---
Author Organization [facility] [place] [address] Care Team Providers Care Oracle Manager Name Role Phone Ana Her MD Primary Care Provider [phone] Encounter Details Date Type Department Care Team (Latest Contact Info) Description 02/25/2017 1:32 PM EDT - 02/25/2017 1:35 PM EDT Hospital [place] [phone] Maryam Yee MD [facility] [place] [address] Abnormal mammogram Discharge Disposition: Home Social History [...] PM EDT 02/25/2017 3:02 PM EDT Narrative [facility] - 02/25/2017 3:02 PM EDT Specimen requisition ordered. ??Separate Pathology report to follow Enzo Burkett MD PATHOLOGY/CYTOLOGY O SHANTAL [facility] [place] [address] documented in this encounter Visit Diagnoses Diagnosis [...] mg documented in this encounter Care Teams Oracle Manager Relationship Specialty Start Date End Date Ana Hre MD [address] [place] [address] PCP - General 07/29/13 documented as of this encounter
--- OUTSIDE RECORDS SUMMARY | 2024-04-22 11:13 | XMS_ITS | Encounter Summary ---
Author Organization [facility] Address [facility] [place] [address] Care Team Providers Care Pinked Edge Sewing Machine Operator Name Role Phone Unavailable Primary Care Provider Unavailabl e Encounter Details Date Type Department Care Team (Latest Contact Info) Description 12/08/2008 - 12/08/2008 11:59 PM EDT Hospital Encounter Radiology Library at [facility] [place] [address] Jackie Cisneros APRN [facility] [place] [address] [place] [address] Discharge Disposition: Home Social History Tobacco Use [...] Only Mammo (12/08/2008 12:00 AM EDT) Narrative [facility] - 02/23/2017 3:30 PM EDT This exam is for storage only and is auto-finalizing. Jackie Cisneros APRN IMG FILM LIBRARY ORD ERABLES NADINE Sethi documented in this encounter Visit Diagnoses Not on filedocumented in this encounter
--- OUTSIDE RECORDS SUMMARY | 2024-04-22 11:13 | XMS_ITS | Encounter Summary ---
[place] [address] Care Team Providers Care Nuclear Reactor Engineer Name Role Phone Ana Her MD Primary Care Provider [phone] Reason for Visit * Reason Comments Establish Care * Consultation (Routine) - Specialty Diagnoses / Procedures Referred By Christiano hackett Referred To Contact Hematology and Oncology Diagnoses Other abnormal and inconclusive findings on diagnostic imaging of breast abnormal mammo, left breast Jackie Cisneros, WENDY [address] [place] [address] [facility] Hem Onc [address] [place] [address] Referral ID Status Reason Start Date Expiration Date V isits Requested Visits Authorized [id number] Consult, Test & Treat Connection Center 02/17/2017 05/20/2017 6 6 Encounter Details Date Type Department Care Team (Late st Contact Info) Description 03/03/2017 9:00 AM EDT Office [place] [address] Malika Chen MD [facility] [place] [address] Argentina Sanchez, RN Malignant neoplasm [...] she will meet with medical and radiation ([facility]) oncologists after surgery. 4. Contact phone number for questions or concerns in the immediate post- operative period. 5. Comprehensive Breast Program Binder. 6. Post Breast Surgery Exercises handout created by physical therapists at [facility]. 7. Breast Cancer Treatment Process care map provided and reviewed. 8. Things to Consider...What I Wish I Knew advice from breast cancer patients handout provided. She verbalized understanding of the plan of care and states all her questions were answered. Twentyminutes was spent in education and providing support. Alma Delia has our contact information. She will call the surgical supply assistant to schedule surgery after she has [...] Alma Delia had a bone scan in [place] which was read as possible metastasis in the left tibia. Of note- she fractured this area recently. She has recovered well. PMH HNT NIDDM not on meds Spinal stenosis Fractured left tibial plateau December, GERD FH: Maternal first cousin with breast cancer Brother with rectal cancer Sister with PE SH: lives alone. Has good support from sisters who live in [place]. Non smoker. Has a son who lives [...] positive documented in this encounter Care Teams Nuclear Reactor Engineer Relationship Specialty Start Date End Date Ana Her MD [address] [place] [address] PCP - General 07/29/13 documented as of this encounter
--- OUTSIDE RECORDS SUMMARY | 2024-04-22 11:13 | XMS_ITS | Encounter Summary ---
Author Organization [facility] [place] [address] Care Team Providers Care Facilities Officer Name Role Phone Ana Her MD Primary Care Provider [phone] Encounter Details Date Type Department Care Team (Latest Contact Info) Description 03/30/2017 8:30 AM [facility] Hospital [place] [address] Malika Chen MD [facility] [place] [address] Malignant neoplasm of upper-outer quadrant of left [...] positive documented in this encounter Care Teams Facilities Officer Relationship Specialty Start Date End Date Ana Her MD [address] [place] [address] PCP - General 07/29/13 documented as of this encounter
--- OUTSIDE RECORDS SUMMARY | 2024-04-22 11:13 | XMS_ITS | Encounter Summary ---
Author Organization [place] [address] Care Team Providers Care Maintenance Craftsman Name Role Phone Ana Her MD Primary Care Provider [phone] Encounter Details Date Type Department Care Team (Latest Contact Info) Description 03/30/2017 8:30 AM [facility] Hospital [place] [address] Malika Chen MD [facility] [place] [address] Malignant neoplasm of upper-outer quadrant of left [...] mg documented in this encounter Care Teams Maintenance Craftsman Relationship Specialty Start Date End Date Ana Her MD [address] [place] [address] PCP - General 07/29/13 documented as of this encounter
--- OUTSIDE RECORDS SUMMARY | 2024-04-22 11:13 | XMS_ITS | Encounter Summary ---
Author Organization [facility] Address [facility] [place] [address] Care Team Providers Care Core Java Engineer Name Role Phone Unavailable Primary Care Provider Unavailabl e Encounter Details Date Type Department Care Team (Latest Contact Info) Description 11/12/2007 - 11/12/2007 11:59 PM EDT Hospital Encounter Radiology Library at [place] [address] Jackie Cisneros APRN [facility] [place] [address] [place] [address] Discharge Disposition: Home Social History Tobacco Use [...] Only Mammo (11/12/2007 12:00 AM EDT) Narrative [facility] - 02/23/2017 3:31 PM EDT This exam is for storage only and is auto-finalizing. Jackie Cisneros APRN IMG FILM LIBRARY ORD ERABLES NADINE Sethi documented in this encounter Visit Diagnoses Not on filedocumented in this encounter
--- OUTSIDE RECORDS SUMMARY | 2024-04-22 11:13 | XMS_ITS | Encounter Summary ---
Author Organization [facility] [place] [address] Care Team Providers Care Supervisor Wet Room Name Role Phone Ana Her MD Primary Care Provider [phone] Encounter Details Date Type Department Care Team (Late st Contact Info) Description 03/19/2017 Telephone [place] [address] Malika Chen MD [facility] [place] [address] Social History Tobacco Use Types Packs/Day Years [...] no unexpected bleeding. Surgery is scheduled in [facility]. documented in this encounter Plan of Treatment Not on file documented as of this encounter Visit Diagnoses Not on filedocumented in this encounter Care Teams Supervisor Wet Room Relationship Specialty Start Date End Date Ana Her MD Geov[address] [facility] [address] [place] [address] PCP - General 07/29/13 documented as of this encounter
--- OUTSIDE RECORDS SUMMARY | 2024-04-22 11:14 | XMS_ITS | Encounter Summary ---
Author Organization [facility] Address [address] [place] [address] Care Team Providers Care Photoengraving Proofer Name Role Phone Unknown, Provider MD Primary Care Provider Unava ilable Encounter Details Date Type Department Care Team (Late st Contact Info) Description 11/19/2023 Lab Requisition [facility] Pathology & Laboratory Medicine - [facility] [address] [place], [place] [address] Outr Resulting Lab, Provider Social History Tobacco [...] 201 - 352 mg/dL 11/20/2023 9:45 EDT [facility] Blood VENOUS BLOOD / Unknown 11/19/2023 6:05 EDT 11/19/2023 17:32 EDT us Provider Outr Resulting Lab CHEMISTRY & BLOOD GA S ORDERABLES Final Result [facility] [address] [place], [place] [address] documented in this encounter Visit Diagnoses Not on filedocumented in this encounter Care Teams Photoengraving Proofer Relationship Specialty Start Date End Date Unknown, Provider, PCP - General 01/13/14 documented as of this encounter
--- OUTSIDE RECORDS SUMMARY | 2024-04-22 11:14 | XMS_ITS | Patient Health Record ---
Author Organization [facility] Address [address] [place] [address] Care Team Providers Care Ignition Expert Name Role Phone Non Compass, Provider Primary Care Provider [phone] Reason For Referral No Information Medications Medication [...] Medicare [address] [place] [id number] Digna Olson Self - patient is the insured [facility] Medicare Plan [address] [place], [place] [id number] Digna Olson Self - patient is the insured Medical (General) History Medical History History ICD Code Atrial fibrillation Hypertension Hypothyroidism Non insulin-dependent diabetes
--- OUTSIDE RECORDS SUMMARY | 2024-04-22 11:14 | XMS_ITS | Encounter Summary ---
Author Organization [facility] Address [address] [place] [address] Care Team Providers Care Machines Technician Name Role Phone Unknown, Provider Primary Care Provider Unava ilable Encounter Details Date Type Department Care Team (Late st Contact Info) Description 01/20/2020 Lab Requisition [facility] Pathology & Laboratory Medicine - [facility] [address] [place] [address] Outr Resulting Lab, Provider Social History Tobacco [...] rt-PCR Result NEGATIVE Negative 01/21/2020 16:10 EDT [facility] Comment: 2019-novel Coronavirus (2019-nCoV) [...] AL ORDERABLES Final Result Performing Organization Address City/State/[facility] Co de Phone Number [facility] [place], [place] * COVID-19 TESTING (01/20/2020 10:30 EDT) COVID-19 rt-PCR Result NEGATIVE Negative 01/21/2020 17:21 EDT [facility] Comment: 2019-novel Coronavirus (2019-nCoV) [...] Administration's Emergency Use Authorization. Performing Lab [facility] 01/21/2020 17:21 EDT [facility] Swab 01/20/2020 10:3 0 EDT 01/20/2020 15:35 EDT us Provider Outr Resulting Lab MICROBIOLOGY - GENER AL ORDERABLES Final Result [facility] [address] [place] [address] [facility] [place], [place] documented in this encounter Visit Diagnoses Not on filedocumented in this encounter Care Teams Machines Technician Relationship Specialty Start Date End Date Unknown, Provider, PCP - General 01/13/14 documented as of this encounter
--- OUTSIDE RECORDS SUMMARY | 2024-04-22 11:14 | XMS_ITS | Encounter Summary ---
Author Organization [facility] Address [address] [place] [address] Care Team Providers Care Jewel Blocker And Sawyer Name Role Phone Unknown, Provider MD Primary Care Provider Unava ilable Encounter Details Date Type Department Care Team (Late st Contact Info) Description 08/12/2021 Lab Requisition [facility] Pathology & Laboratory Medicine - [facility] [address] [place] [address] Outr Resulting Lab, Provider Social History Tobacco [...] Priority Date/Time Associated Diagnosis Comments ZZCOVID-19 TEST [facility] LAB PCR Today 08/12/2021 15:00 EDT COVID-19 TESTING Routine 08/12/2021 15:0 0 EDT documented in this encounter Results * COVID-19 TEST [facility] (08/12/2021 15:00 EDT) Swab 08/12/2021 15:0 0 EDT 08/13/2021 16:56 EDT us Provider Outr Resulting Lab MICROBIOLOGY - GENER AL ORDERABLES Final Result [facility] [address] [place] [address] * COVID-19 TESTING (08/12/2021 15:00 EDT) COVID-19 rt-PCR Result Negative Negative 08/14/2021 11:53 EDT [facility] Comment: This test [...] was performed using the palomo SARS-CoV-2 assay ([employer] on the Palomo 6800 System Performing Lab [facility] [address] [facility] Lab 08/14/2021 11:53 EDT [facility] Swab 08/12/2021 15:0 0 EDT 08/13/2021 16:56 EDT us Provider Outr Resulting Lab MICROBIOLOGY - GENER AL ORDERABLES Final Result [facility] [address] [place] [address] documented in this encounter Visit Diagnoses Not on filedocumented in this encounter Care Teams Jewel Blocker And Sawyer Relationship Specialty Start Date End Date Unknown, Provider, PCP - General 01/13/14 documented as of this encounter
--- OUTSIDE RECORDS SUMMARY | 2024-04-22 11:14 | XMS_ITS | Encounter Summary ---
Author Organization [facility] Address [address] [place] [address] Care Team Providers Care Trimmer And Reinforcer Name Role Phone Unavailable Primary Care Provider Unavailabl e Encounter Details Date Type Department Care Team (Latest Contact Info) Description 01/10/2014 20:50 EDT - 01/10/2014 23:[address] [facility] [address] [place] [address] Unknown, Provider, MD Discharge Disposition: Home or [...] Code Departure Means Destination Home or Self [place] documented in this encounter Plan of Treatment Not on file documented as of this encounter Visit Diagnoses Not on filedocumented in this encounter
--- OUTSIDE RECORDS SUMMARY | 2024-04-22 11:14 | XMS_ITS | Encounter Summary ---
Author Organization [facility] Address [address] [place] [address] Care Team Providers Care Application Security Developer Name Role Phone Unknown, Provider MD Primary Care Provider Unava ilable Encounter Details Date Type Department Care Team (Late st Contact Info) Description 04/06/2022 Lab Requisition [facility] Pathology & Laboratory Medicine - [facility] [address] [place] [address] Outr Resulting Lab, Provider Social History Tobacco [...] Salmonella PCR Negative Negative 04/06/2022 22:[address] [facility] Shigella/Enteroin vasive E. coli Negative Negative 04/06/2022 22:[address] [facility] HN LAB CAMPYLOBACTER PCR Negative Negative 04/06/2022 22:[address] [facility] Shiga Toxin PCR Negative Negative 22:[address] [facility] Feces SPECIMEN FROM RECTUM / Unknown 04/05/2022 10:41 EST 04/06/2022 18:31 EST us Provider Outr Resulting Lab MICROBIOLOGY - GENER AL ORDERABLES Final Result [facility] [address] [place] [address] documented in this encounter Visit Diagnoses Not on filedocumented in this encounter Care Teams Application Security Developer Relationship Specialty Start Date End Date Unknown, Provider, PCP - General 01/13/14 documented as of this encounter
--- OUTSIDE RECORDS SUMMARY | 2024-04-22 11:14 | XMS_ITS | Encounter Summary ---
Author Organization [facility] Address [address] [place] [address] Care Team Providers Care Unix System Administrator Name Role Phone Unknown, Provider Primary Care Provider Unava ilable Encounter Details Date Type Department Care Team (Late st Contact Info) Description 03/17/2017 Results Only [facility] [phone] Kat Lazaro MD [facility] [address] [place], [place] [id number] Social History Tobacco Use Types Packs/Day Years [...] ? DIGNA KIMBROUGH ? Accession #: ? [id number] ? : ? 1945 (Age: 71) ??F [...] (ASCP) 03/18/2017 8:14 AM End of Report [facility] 03/17/2017 16:1 5 EST 03/17/2017 16:15 EST us Kat Lazaro MD PATHOLOGY ORDERABLES Fin al Result [facility] [address] [place] [address] documented in this encounter Visit Diagnoses Not on filedocumented in this encounter Care Teams Unix System Administrator Relationship Specialty Start Date End Date Unknown, Provider, PCP - General 01/13/14 documented as of this encounter
--- OUTSIDE RECORDS SUMMARY | 2024-04-22 11:14 | XMS_ITS | Encounter Summary ---
Author Organization [facility] Address [address] [place] [address] Care Team Providers Care Machine Adjuster Leader Case Trim Name Role Phone Unknown, Provider MD Primary Care Provider Unava ilable Encounter Details Date Type Department Care Team (Late st Contact Info) Description 10/26/[address] [facility] Pathology & Laboratory Medicine - [facility] [address] [place] [address] Outr Resulting Lab, Provider Social History Tobacco [...] Neg and Giardia Antigen Neg 13:48 EDT [facility] Feces SPECIMEN FROM RECTUM / Unknown 10/25/2022 15:00 EDT 10/26/2022 15:25 EDT us Provider Outr Resulting Lab MICROBIOLOGY - GENER AL ORDERABLES Final Result [facility] [address] [place] [address] * FECAL BACTERIAL PATHOGENS BY PCR (10/25/2022 15:00 EDT) Salmonella PCR Negative Negative 10/26/2022 19:17 EDT [facility] Shigella/Enteroin vasive E. coli Negative Negative 10/26/2022 19:17 EDT [facility] HN LAB CAMPYLOBACTER PCR Negative Negative 10/26/2022 19:17 EDT [facility] Shiga Toxin PCR Negative Negative 19:17 EDT [facility] Feces SPECIMEN FROM RECTUM / Unknown 10/25/2022 15:00 EDT 10/26/2022 15:25 EDT us Provider Outr Resulting Lab MICROBIOLOGY - GENER AL ORDERABLES Final Result Performing Organization Address [facility] Co de Phone Number [facility] [address] [place] [address] * OVA/PARASITE EXAM (10/25/2022 15:00 EDT) Parasite No ova and parasites seen. 10/28/2022 15:08 EDT [facility] Feces SPECIMEN FROM RECTUM / Unknown 10/25/2022 15:00 EDT 10/26/2022 15:25 EDT Narrative [facility] - 10/28/2022 15:08 EDT (If Cryptosporidium, Cyclospora, or Microsporidium are suspected, specific tests must be requested.) Single negative specimen does not rule out the possibility of a parasitic infection. us Provider Outr Resulting Lab MICROBIOLOGY - GENER AL ORDERABLES Final Result Performing Organization Address City/[facility]/ZIP Co de Phone Number [facility] [address] [place] [address] documented in this encounter Visit Diagnoses Not on filedocumented in this encounter Care Teams Machine Adjuster Leader Case Trim Relationship Specialty Start Date End Date Unknown, Provider, PCP - General 9/12/14 documented as of this encounter
--- OUTSIDE RECORDS SUMMARY | 2024-04-25 11:02 | XMS_ITS | Continuity of Care Document ---
Author Organization [place] [facility] [place] [address] Care Team Providers Care Chief Fishery Division Name Role Phone GABINODC Preparer Samples And Rep[employer] [facility] Orthopedic Surgeon [phone] [facility] Sleep Medicine [facility] Med Surg Rn Assessment No assessment recorded. Plan of Treatment Reminders Order Date Submit Date Provider Last Modified By Organization Details Last Modified Time Details Appointments Follow Up 20 2024 01:20P M Ana Wade Not available Not available Not available Lab BMP, serum or plasma 2023 024 [facility] (Registration ), [address] [place] [address] [place], [address], 04/19/2024 11:42:49 vitamin D, 25-hydrox y, total, serum 2023 024 [facility] (Registration ), [address] [place] [address] [place], [address], 04/18/2024 16:09:19 HbA1c (hemoglob in A1c), blood 2023 024 [facility] (Registration ), [address] [place] [address] [place], [address], 04/19/2024 11:39:49 TSH, serum, reflex free T4 2023 024 [facility] (Registration ), [address] [place] [address] [facility], [address], 04/19/2024 11:40:25 CBC 2023 024 [facility] (Registration ), [address] [place] [address] [place], [address], 04/18/2024 15:08:25 ferritin, serum or plasma 2023 024 [facility] (Registration ), [address] [place] [address] [place], [address], 04/19/2024 11:41:22 iron + total iron-bind ing capacity (TIBC), serum 2023 024 [facility] (Registration ), [address] [place] [address] [place], [address], 04/19/2024 11:43:17 Referral None recorded. Procedures None [...] humeral fracture 2023- MD [address], [place], [address] , [facility] 4 17:34:10 Hypothyr oidism 81564718 Active 1959 EVIE shaw [facility] 4 10:29:59 Essentia l hyperten jason 89162973 Active 1959 EVIE shaw [facility] 4 10:29:36 Hyperlip idemia 91815083 Active 1959 on statin MD [address], [place], [address] , [facility] 4 20:35:18 Spinal stenosis of lumbar region 71965060 Active 2012 s/p lumbar foramino parish L4 MD [address], [place], [address] , [facility] 4 20:36:41 Sleep apnea 29756586 Active 2012 on CPAP MD [address], [facility] [address] , [facility] 4 20:39:31 Gastroes ophageal reflux disease without esophagi tis 859562641 Completed 195908/12/2023 Removal Reason: resolved with surgical repair of HH MD [address], [place], [address] , [facility] 4 10:41:24 Family history of malignan t neoplasm of digestiv e organ 867942681 Active [address], [place], [address] , [facility] 4 20:37:03 Paresthe samir 28719044 Completed 201412/01/2014 11/28/19 15 - Comments only - Ana Wade MD - check B12 and folate Problem Code: R20.2; Problem Code Type: ICD-10; Not Available [facility] 3 05:53:48 Adult health examinat ion Active [address], [place], [address] , [facility] 4 20:33:34 Pre-surg ruben evaluati on [...] Z01.818; Problem Code Type: ICD-10; Not Available [facility] 3 05:53:48 Localize d edema 496492416 Completed 201501/29/2016 12/13/19 16 - Comments only - Ana Wade MD - and some on left as well, will check BMP. 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 Nusrat esparza for removal. Problem Code: L72.3; Problem Code Type: ICD-10; Not Available [facility] 3 05:53:49 Chronic ulcer of foot 165503878 Completed 201601/16/2017 12/18/19 17 - Comments only - Ana Wade MD - Due to injury. This does appear to have some granulat ion tissue and to be healing. She is given a prescrip tion for Keflex to take only if erythema seems to be extendin g. Problem Code: L97.509; Problem Code Type: ICD-10; Not Available [facility] 3 05:53:49 Diarrhea 80916709 Completed 201602/10/2017 02/05/20 17 - Comments only - Ana Wade MD - Persiste nt over several months, we will collect stool for C. 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 6 mm PT1NO E2P2 poistive , HER2 negative MD [address], [place], [address] , [facility] 4 20:38:49 Pain in left lower limb 664499751 Active 2016 EVIE shaw, [facility]. 4 10:32:00 Pain in thoracic spine 594394815 Active 2016 EVIE shaw [facility]. 4 10:32:06 Spasm 33928345 Active 2017 EVIE shaw [facility]. 4 10:33:28 Abdomina l distensi on, gaseous 643349144 Completed 201703/08/2018 Problem Code: R14.0; Problem Code Type: ICD-10; Not Available [facility] 3 05:53:50 Cellulit is of toe 89294973 Completed 201808/12/2018 Problem Code: L03.039; Problem Code Type: ICD-10; Not Available [facility] 3 05:53:51 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 2018 Danica shaw, [facility] 4 14:36:02 Tachycar lea 0353040 Completed 201811/25/2018 Problem Code: R00.0; Problem Code Type: ICD-10; Not Available [facility] 3 05:53:51 Pre-surg ruben evaluati on Completed 201811/25/2018 Problem Code: Z01.818; Problem Code Type: ICD-10; Not Available [facility] 3 05:53:51 Iron deficien cy anemia 41910079 Active 2019 elevated MCV: normal B12 2021, normal folate 2018 IV iron 2023 EGD 01/2022 paraesop hageal hernia (since repaired ) colo 03/2017 normal ANA WADE MD [facility] [address], [place], [address] , [facility] 4 11:44:45 Lumbago with sciatica 210728822 Completed 201903/16/2020 02/24/20 20 - Comments only - 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 - Likely aggravat ed by increase d [...] Code Type: ICD-10; Not Available [facility] 3 05:53:52 Right side sciatica 66137538162 9101 Active 2019 EVIE shaw, [facility] 4 10:33:09 Left side sciatica 41820290285 9104 Active [address], [facility] [address] , [facility] 4 17:20:20 Diaphrag matic hernia 02191011 Completed 202108/11/2023 Removal Reason: s/p repair MD [address], [facility] [address] , [facility] 4 20:50:39 History of SARS-CoV -2 [id number] 4624112 Completed 202104/04/2022 03/21/20 22 - Comments only - Ana Wade MD - testing is negative today in the office. Still some fatigue but otherwis e recoveri ng. Did get MAB. Already had covid bivalent booster prior to illness Problem Code: Z86.16; Problem Code Type: ICD-10; Not Available [facility] 3 05:53:53 Diarrhea 78338326 Completed 202104/18/2022 Problem Code: R19.7; Problem Code Type: ICD-10; MD [address], [facility] [address] , [facility] 4 21:03:02 Radhain myla mammogra phy Completed 202208/11/[address], [facility] [address] , [facility] 4 20:36:56 Carpal tunnel syndrome of left wrist 42818394583 9102 Completed 202201/23/2023 Problem Code: G56.02; Problem Code Type: ICD-10; Not Available [facility] 4 05:37:46 Diarrhea 11467673 Active 2022 started colestip ol 01/2023 ANA WADE MD [address], [place], [address] , [facility] 4 21:03:02 Carpal tunnel syndrome of right wrist 95667416903 9108 Completed 201803/19/2020 Problem Code: G56.01; Problem Code Type: ICD-10; Not Available [facility] 3 05:53:55 Pain of left knee joint 50866910642 4107 Completed 202107/30/2022 Problem Code: M25.562; Problem Code Type: ICD-10; Not Available [facility] 3 05:53:55 Hypersom korina 05403508 Completed 201311/27/2014 Problem Code: 780.54; Problem Code Type: ICD-9; Not Available [facility] 3 05:53:56 Screenin g for disorder Completed 201909/11/2021 Problem Code: Z13.9; Problem Code Type: ICD-10; Not Available [facility] 3 05:53:56 Anemia 458628247 Completed 201903/19/2020 Problem Code: D64.9; Problem Code Type: ICD-10; Not Available [facility] 3 05:53:56 Long-ter m current use of anticoag ulant 407213478 Completed 201709/01/2018 Problem Code: Z79.01; Problem Code Type: ICD-10; Not Available [facility] 3 05:53:57 Chronic rhinitis 30240602 Completed 202108/12/2021 Problem Code: J31.0; Problem Code Type: ICD-10; Not Available [facility] 3 05:53:57 Impaired fasting glycemia 149642356 Completed 201401/28/2023 Not Available [facility] 3 05:53:57 Fatigue 44276880 Completed 201903/19/2020 Problem Code: R53.83; Problem Code Type: ICD-10; Not Available [facility] 3 05:53:58 Upper respirat ory tract infectio n caused by Influenz a A 09051021162 9104 Completed 201707/02/2017 Problem Code: J09.x2; Problem Code Type: ICD-10; Not Available [facility] 3 05:53:59 Diarrhea 34604551 Completed 201709/01/2018 ANA WADE MD [facility] [address], [place], [address] [facility] 4 21:03:02 Acute upper respirat ory infectio n 19541161 Completed 202108/26/2021 Problem Code: J06.9; Problem Code Type: ICD-10; Not Available [facility] 3 05:53:59 Pain in right foot 32508523623 9107 Completed 202207/30/2022 Problem Code: M79.671; Problem Code Type: ICD-10; Not Available [facility] 3 05:54:00 Breast composit ion 692419856 Completed 201601/28/2023 Not Available [facility] 3 05:54:00 Changes in skin texture 736964576 Completed 202207/30/2022 Problem Code: R23.4; Problem Code Type: ICD-10; Not Available [facility] 3 05:54:01 Spasm 87532180 Completed 201603/23/2017 Problem Code: R25.2; Problem Code Type: ICD-10; EVIE shaw [facility] 4 10:33:28 Hyperten sive disorder 54609516 Completed 11/28/19 15 - Comments only - Ana Wade MD - [facility] ed, no change in medicati ons Not Available [facility] 3 05:54:03 Arthralg ia of the ankle and/or foot 579894814 Completed 201501/30/2016 Problem Code: M25.571; Problem Code Type: ICD-10; Not Available [facility] 3 05:54:03 Dyspnea 299210948 Completed 201903/19/2020 Problem Code: R06.02; Problem Code Type: ICD-10; [facility] 4 14:39:47 Trigger finger of right hand 75108534653 226931 Completed 201803/19/2020 Problem Code: M65.341; Problem Code Type: ICD-10; Not Available [facility] 3 05:54:06 Cough 85116347 Completed 202108/12/2021 Problem Code: R05.1; Problem Code Type: ICD-10; Not Available [facility] 3 05:54:06 At risk - finding 188507494 Completed 201811/11/2018 Problem Code: Z91.89; Problem Code Type: ICD-10; Not Available [facility] 3 05:54:06 Cough 54803284 Completed 201706/15/2017 Problem Code: R05; Problem Code Type: ICD-10; Not Available [facility] 3 05:54:07 Preopera tive cardiova scular examinat ion Completed 202112/18/2021 Problem Code: Z01.810; Problem Code Type: ICD-10; Not Available [facility] 3 05:54:08 Arterial bruit 17297351 Completed 202109/11/2021 Not Available [facility] 3 05:54:08 Gastroes ophageal reflux disease 845175718 Completed Not Available [facility] 3 05:54:09 Imaging of musculos keletal system abnormal 710611328 Completed 201603/23/2017 Problem Code: R93.7; Problem Code Type: ICD-10; Not Available [facility] 3 05:54:10 Blood glucose outside referenc e range 782143597 Completed 201503/20/2016 Problem Code: R73.09; Problem Code Type: ICD-10; Not Available [facility] 3 05:54:10 Abdomina l aortic aneurysm 105154628 Completed 195912/04/2014 Not Available [facility] 3 05:54:11 Lung field abnormal 723723084 Completed 202109/11/2021 Problem Code: R91.8; Problem Code Type: ICD-10; Not Available [facility] 3 05:54:11 Ingrowin g nail 276602094 Completed 201503/23/2017 Problem Code: L60.0; Problem Code Type: ICD-10; Not Available [facility] 3 05:54:11 Hypokale karyn 31882969 Completed 201504/17/2016 Problem Code: E87.6; Problem Code Type: ICD-10; Not Available [facility] 3 05:54:12 Spasm 02644530 Completed 202201/23/2023 Problem Code: M62.838; Problem Code Type: ICD-10; EVIE shaw, [facility]. 4 10:33:28 Aneurysm of ascendin g aorta 288102062 Active 2023 ANA WADE MD [address], [place], [address] , [facility]. 4 19:24:51 Bicuspid aortic valve 26473676 Active 2023 severe by ECHO 07/2023 ANA WADE MD [address], [place], [address] , [facility]. 4 19:33:10 Osteopen ia 466115052 Active 2023 EVIE shaw, [facility]. 4 10:28:13 Venous stasis 17680876 Active 2023 EVIE shaw [facility]. 4 10:29:14 Chronic kidney disease 525715567 Active 2017 Stage 3bA1v eGFR 42-[address], [place] [address] , [facility] 4 20:49:29 Dyspnea on exertion 84853866 Active 2018 Danica shaw, [facility] 4 14:39:44 Hiatal hernia 41075971 Completed 202108/11/2023 lap repair MD [address], [place] [address] , [facility] 4 20:51:15 Edema of lower extremit y 902672980 Active [address], [place] [address] , [facility] 4 20:55:49 Atrial fibrilla tion 61486902 Active 2016 s/p pulmonoa ry vein isolatio n 05/2018, chronic anticoag ulation with Xarelto MD [address], [place] [address] , [facility] 4 09:14:08 Obesity 869963834 Active [address], [place] [address] , [facility] 4 09:26:22 Cardiac pacemake r in situ 614551795 Active 2023 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 MD [address], [place] [address] , [facility] 4 09:13:49 Swelling of bilatera l lower limbs 807003352 Active [address], [place], [address] , [facility] 14:35:13 Problem Notes None recorded. Procedures Surgical History Date Name Laterality Status Provider Name and Address Organization Details Recorded Time 10/26/19 cardiac pacemaker procedure completed MD [address], [place], [address], [facility] 03/16/2024 16:33:27 10/20/19 transcatheter aortic valve implantation completed MD [address], [facility] [address], [facility] 03/16/2024 16:32:53 Imaging Results None recorded. Procedure Notes None recorded. Medical Equipment None Reported. Allergies Allergen ID Allergen Name Allergen Category Reaction Reaction Severity Criticality Documentation Date Start Date Code Code System Note Provider Name and Address Organization Details Recorded Time 21897 amlodipin e medicatio n swelling severe high 11/18/2023 86065 RxNorm Shaneka Herrera MA [facility], [facility] 13:47:28 Medications Name Sig Start [...] 1 tab by mouth daily 06/02 [facility] Not [facility] Not Available Not [...] Status Never Smoker KRYSTAL SKELTON LPN null, [place] - [facility]. 08/12/2023 07:44:55 Date Of Most Recent [...] And Wanted Help? (For Example, If You [place] Very Nervous, Lonely, Or Blue; Got Sick [...] Details Recorded Time Pneumococcal conjugate PCV20, polysaccharide BFZ520 conjugate, adjuvant, PF 4 completed MD [address], [address] 08/12/2023 11:52:18 COVID-19, mRNA, LNP-S, PF, vanda-sucrose, 30 mcg/0.3 mL 4 completed MD [address], [address] 08/12/2023 11:52:18 COVID-19, mRNA, LNP-S, PF, vanda-sucrose, 30 mcg/0.3 mL 4 completed MD [address], [address] [place] [address] 03/04/2024 15:04:49 Tdap 1 completed Not Available [facility] 03/13/2023 06:18:37 Tdap 1 completed Not Available [facility] 03/13/2023 06:18:37 zoster live 5 completed Not Available [facility] 03/13/2023 06:18:37 Influenza, high-dose, trivalent, PF 8 completed Not Available [facility] 03/13/2023 06:18:38 Influenza, split virus, trivalent, preservative 6 completed Not Available [facility] 03/13/2023 06:18:38 Pneumococcal Conjugate, unspecified formulation 5 completed Not Available [facility] 03/13/2023 06:18:38 Influenza, split virus, quadrivalent, preservative 7 completed Not Available [facility] 03/13/2023 06:18:38 Influenza, high-dose, quadrivalent, PF 2 completed Not Available [facility] 03/13/2023 06:18:38 Influenza, high-dose, quadrivalent, PF 1 completed Not Available [facility] 03/13/2023 06:18:38 Influenza, high-dose, quadrivalent, PF 0 completed Not Available [facility] 03/13/2023 06:18:38 COVID-19, mRNA, LNP-S, PF, 100 mcg/0.5mL dose or 50 mcg/0.25mL dose 1 completed Not Available [facility] 03/13/2023 06:18:38 COVID-19, mRNA, LNP-S, PF, 100 mcg/0.5mL dose or 50 mcg/0.25mL dose 1 completed Not Available [facility] 03/13/2023 06:18:39 COVID-19, mRNA, LNP-S, PF, 100 mcg/0.5mL dose or 50 mcg/0.25mL dose 1 completed Not Available [facility] 03/13/2023 06:18:39 COVID-19, mRNA, LNP-S, bivalent, PF, 30 mcg/0.3 mL dose 2 completed Not Available [facility] 03/13/2023 06:18:39 pneumococcal polysaccharide PPV23 1 completed Not Available [facility] 03/13/2023 06:18:39 influenza, unspecified formulation 6 completed Not Available [facility] 03/13/2023 06:18:39 influenza, unspecified formulation 4 completed Not Available [facility] 03/13/2023 06:18:39 Influenza, high-dose, quadrivalent, PF 3 completed Not Available [facility] 05/15/2023 05:33:16 Past Encounters Encounter ID Performer Location Encounter Start Date Encounter Closed Date Diagnosis/Indication Diagnosis SNOMED-CT Code Diagnosis ICD10 Code [id number] Samantha Razo RN [address] [place] [address] 04/18/2024 10:14:04 04/18/2024 10:46:21 Osteoporotic fracture 48619726 M80.00XD Hypothyroidism 63016864 E03.9 Iron defic iency anemia 89230287 D50.9 Chronic ki dney disease 619364305 N18.9 Prediabetes 470986885 R7 3.03 Health Concerns Section Related Observation LastModified by Organization Detai ls LastModified Time None Recorded Concern Status LastModified by Organization Details LastModified Time None Recorded Payers Encounter Date Sequence Insurance Name Policy Number Policy Palacio Covered Member ID Palacio Member ID Guarantor Name 04/18/2024 1 [place] [employer] Digna Olson [id number] Digna Olson 04/18/2024 2 [place] [facility] [id number] Digna Olson [id number] Digna Olson OBGyn Episode No OBEpisode recorded.
--- OUTSIDE RECORDS SUMMARY | 2024-04-25 11:02 | XMS_ITS | Data Portability ---
Author Organization [place] [facility], [facility] [place] [address] Care Team Providers Care Aboriginal Education Worker Coordinator Name Role Phone GABINODC [facility] [employer] [facility] Orthopedic Surgeon [facility] Sleep Medicine [facility] Woolen Tester Assessment Encounter Date Assessment Date Assessment LastModified by Organization Details LastModified Time 10/14/2023 10/14/2023 Patient presents for pre-op evaluation. The patient is a suitable candidate for the planned procedure. Their chronic medical problems are optimized Further preoperative evaluation is not needed. BMP and CBC are drawn today. The total time devoted to today's encounter, including both the myoy-nx-ygul time with the patient and/or family/caregive r and vyl-bevy-px-fac e time I personally spent is 30 minutes. Not available 10/14/2023 11:57:30 12/02/2023 12/02/2023 The total time devoted to today's encounter, including both the drzp-vh-pzab time with the patient and/or family/caregive r and rxx-mzxv-db-fac e time I personally spent is 35 minutes. Not available 12/02/2023 14:47:23 03/04/2024 03/04/2024 The total time devoted to today's encounter, including both the wtxj-yb-pzfg time with the patient and/or family/caregive r and qiz-ilae-jg-fac e time I personally spent is 44 minutes. Not available 03/04/2024 17:47:18 Plan of Treatment Reminders Order Date Submit Date Provider Last Modified By Organization Details Last Modified Time Details Appointments Follow Up 2024 01:20P Allan Her Not available Not available Not available Lab CBC 2023 024 [facility] (Registration ), [address] [place] [address] [place], [address], 10/14/2023 15:11:07 BMP, serum or plasma 2023 024 [facility] (Registration ), [address] [place] [address] [place], [address], 10/14/2023 17:41:37 BMP, serum or plasma 2023 024 [facility] (Registration ), [address] [place] [address] [place], [address], 12/30/2023 08:56:49 magnesium , serum or plasma 2023 024 [facility] (Registration ), [address] [place] [address] [place], [address], 12/09/2023 07:38:05 BNP (B-type natriuret ic peptide), serum or plasma 2023 024 [facility] (Registration ), [address] [place] [address] [place], [address], 12/03/2023 20:48:47 CBC 2023 024 [facility] (Registration ), [address] [place] [address] [place], [address], 12/02/2023 16:35:23 BMP, serum or plasma 2023 024 [facility] (Registration ), [address] [place] [address] [place], [address], 04/19/2024 11:42:49 vitamin D, 25-hydrox y, total, serum 2023 024 [facility] (Registration ), [address] [place] [address] [place], [address], 04/18/2024 16:09:19 HbA1c (hemoglob in A1c), blood 2023 [facility] (Registration ), [address] [place] [address] [place], [address], 04/19/2024 11:39:49 TSH, serum, reflex free T4 2023 [facility] (Registration ), [address] [place] [address] [place], [address], 04/19/2024 11:40:25 CBC 2023 [facility] (Registration ), [address] [place] [address] [place], [address], 04/18/2024 15:08:25 ferritin, serum or plasma 2023 [facility] (Registration ), [address] [place] [address] [place], [address], 04/19/2024 11:41:22 iron + total iron-bind ing capacity (TIBC), serum 2023 [facility] (Registration ), [address] [place] [address] [place], [address], 04/19/2024 11:43:17 BMP, serum or plasma 2023 024 [facility] (Registration ), [address] [place] [address] [place], [address], 04/19/2024 11:42:49 vitamin D, 25-hydrox y, total, serum 2023 [facility] (Registration ), [address] [place] [address] [place], [address], 04/18/2024 16:09:19 HbA1c (hemoglob in A1c), blood 2023 024 [facility] (Registration ), [address] [place] [address] [place], [address], 04/19/2024 11:39:49 TSH, serum, reflex free T4 2023 024 [facility] (Registration ), [address] [place] [address] [place], [address], 04/19/2024 11:40:25 CBC 2023 024 [facility] (Registration ), [address] [place] [address] [place], [address], 04/18/2024 15:08:25 ferritin, serum or plasma 2023 024 [facility] (Registration ), [address] [place] [address] [place], [address], 04/19/2024 11:41:22 iron + total iron-bind ing capacity (TIBC), serum 2023 024 [facility] (Registration ), [address] [place] [address] [place], [address], 04/19/2024 11:43:17 Referral None recorded. Procedures None recorded. Surgeries None recorded. Imaging electroca rdiogram 2023 024 [facility], [address], [place], [address], 10/14/2023 11:56:21 Medication Orders tramadol 50 mg tablet 2023 024 [facility], [address] [facility], [place], [address], 02/19/2024 13:12:28 furosemid e 80 mg tablet 2023 024 [facility], [address] [place] [address], [address], [place], [address], 03/04/2024 14:49:38 spironola ctone 25 mg tablet [email or web address] [facility], [address] [place] [address], [facility] [address], [address], 12/02/2023 12:50:28 lisinopri l 5 mg tablet 2023 [facility], [address] [place] [address], [facility] [place], [address], 02/19/2024 13:19:32 carvedilo l 25 mg tablet 2023 [facility], [address] [place] [address], [address], [place], [address], 02/19/2024 13:19:26 hydromorp ricky 2 mg tablet 2023 024 [facility], [address] [place], [address], 03/04/2024 15:12:30 levothyro xine 75 mcg tablet [address] [facility], [address] [place], [address], 03/04/2024 16:32:19 Patient TargetsNo targets recorded. Patient InstructionsNo instructions recorded. 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 None Reported. Results Created Date Observation Date Name Description Value Unit Range Abnormal Flag Note LastModifiedBy Organization Detail LastModifiedTime 10/14/19 24 10/14/2023 COMPL ETE BLOOD COUNT NO DIFF WBC 8.22 10_3/ uL 4.4-10 .8 normal Not Available [facility] [address] [place], [address] 10/14/2023 15:11:07 10/14/19 24 10/14/2023 COMPL ETE BLOOD COUNT NO DIFF RBC 3.22 10_6/ uL 3.93-5 .22 low Not Available [address] [place], [address] 10/14/2023 15:11:07 10/14/19 24 10/14/2023 COMPL ETE BLOOD COUNT NO DIFF HGB 10.9 g/dL 11.2-1 5.7 low Not Available [address] [place], [address] 10/14/2023 15:11:07 10/14/19 24 10/14/2023 COMPL ETE BLOOD COUNT NO DIFF HCT 32.5 % 36.0-4 6.0 low Not Available [address] [place], [address] 10/14/2023 15:11:07 10/14/19 24 10/14/2023 COMPL ETE BLOOD COUNT NO DIFF MCV 101 fL 80-95 high Not Available [address] [place], [address] 10/14/2023 15:11:07 10/14/19 24 10/14/2023 COMPL ETE BLOOD COUNT NO DIFF MCH 33.9 pg 27.0-3 3.0 high Not Available [address] [place], [address] 10/14/2023 15:11:07 10/14/19 24 10/14/2023 COMPL ETE BLOOD COUNT NO DIFF MCHC 33.5 % 32.0-3 6.0 normal Not Available [address] [place], [address] 10/14/2023 15:11:07 10/14/19 24 10/14/2023 COMPL ETE BLOOD COUNT NO DIFF RDW 13.9 % 11.7-1 4.6 normal Not Available [address] [place], [address] 10/14/2023 15:11:07 10/14/19 24 10/14/2023 COMPL ETE BLOOD COUNT NO DIFF platelet count 133 10_3/ uL 130-40 0 normal Not Available [address] [place], [address] 10/14/2023 15:11:07 10/14/19 24 10/14/2023 COMPL ETE BLOOD COUNT NO DIFF MPV 12.8 fL 8.0-11 .0 high Not Available [address] [place], [address] 10/14/2023 15:11:07 10/14/19 24 10/14/2023 BASIC METAB OLIC PANEL calcium 9.3 mg/dL 8.5-10 .1 normal Not Available [facility] (Registration ) [address] [place] [address] [place], [address], 10/14/2023 15:19:07 10/14/19 24 10/14/2023 BASIC METAB OLIC PANEL glucose 105 mg/dL 74-106 normal Not Available [facility] (Registration ) [address] [place] [address] [place], [address], 10/14/2023 15:19:07 10/14/19 24 10/14/2023 BASIC METAB OLIC PANEL BUN 49 mg/dL 7-18 high Not Available [facility] (Registration ) [address] [place] [address] [place], [address], 10/14/2023 15:19:07 10/14/19 24 10/14/2023 BASIC METAB OLIC PANEL creatinine 1.9 mg/dL 0.55-1 .02 high Not Available [facility] (Registration ) [address] [place] [address] [place], [address], 10/14/2023 15:19:07 10/14/19 24 10/14/2023 BASIC METAB [...] young er-ag ed adult s. Not Available [facility] (Registration ) [address] [place] [address] [place], [address], 10/14/2023 15:19:07 10/14/19 24 10/14/2023 BASIC METAB OLIC PANEL sodium 137 mmol/ L 136-14 5 normal Not Available [facility] (Registration ) [address] [place] [address] [place], [address], 10/14/2023 15:19:07 10/14/19 24 10/14/2023 BASIC METAB OLIC PANEL potassium 5.1 mmol/ L 3.5-5. 1 normal Not Available [facility] (Registration ) [address] [place] [address] [place], [address], 10/14/2023 15:19:07 10/14/19 24 10/14/2023 BASIC METAB OLIC PANEL chloride 104 mmol/ L 98-107 normal Not Available [facility] (Registration ) [address] [place] [address] [place], [address], 10/14/2023 15:19:07 10/14/19 24 10/14/2023 BASIC METAB OLIC PANEL CO2 20.3 mmol/ L 21.0-3 2.0 low Not Available [facility] (Registration ) [address] [place] [address] [place], [address], 10/14/2023 15:19:07 10/14/19 24 10/14/2023 BASIC METAB OLIC PANEL anion gap 12.7 mmol/ L 3-11 high Not Available [facility] (Registration ) [address] [place] [address] [place], [address], 10/14/2023 15:19:07 11/18/19 24 11/18/2023 LACTA TE lactate 1.0 mmol/ L 0.6-1. 4 normal Not Available [address] [place], [address] 11/18/2023 15:53:33 11/18/19 24 11/18/2023 COMPL ETE BLOOD COUNT W/DIF F WBC 8.69 10_3/ uL 4.4-10 .8 normal Not Available [address] [place], [address] 11/18/2023 15:57:13 11/18/19 24 11/18/2023 COMPL ETE BLOOD COUNT W/DIF F RBC 3.16 10_6/ uL 3.93-5 .22 low Not Available [address] [place], [address] 11/18/2023 15:57:13 11/18/19 24 11/18/2023 COMPL ETE BLOOD COUNT W/DIF F HGB 10.7 g/dL 11.2-1 5.7 low Not Available [address] [place], [address] 11/18/2023 15:57:13 11/18/19 24 11/18/2023 COMPL ETE BLOOD COUNT W/DIF F HCT 33.0 % 36.0-4 6.0 low Not Available [address] [place], [address] 11/18/2023 15:57:13 11/18/19 24 11/18/2023 COMPL ETE BLOOD COUNT W/DIF F MCV 104 fL 80-95 high Not Available [address] [place], [address] 11/18/2023 15:57:13 11/18/19 24 11/18/2023 COMPL ETE BLOOD COUNT W/DIF F MCH 33.9 pg 27.0-3 3.0 high Not Available [address] [place], [address] 11/18/2023 15:57:13 11/18/19 24 11/18/2023 COMPL ETE BLOOD COUNT W/DIF F MCHC 32.4 % 32.0-3 6.0 normal Not Available [address] [place], [address] 11/18/2023 15:57:13 11/18/19 24 11/18/2023 COMPL ETE BLOOD COUNT W/DIF F RDW 14.6 % 11.7-1 4.6 normal Not Available [address] [place], [address] 11/18/2023 15:57:13 11/18/19 24 11/18/2023 COMPL ETE BLOOD COUNT W/DIF F platelet count 134 10_3/ uL 130-40 0 normal Not Available [address] [place], [address] 11/18/2023 15:57:13 11/18/19 24 11/18/2023 COMPL ETE BLOOD COUNT W/DIF F MPV 11.2 fL 8.0-11 .0 high Not Available [address] [place], [address] 11/18/2023 15:57:13 11/18/19 24 11/18/2023 COMPL ETE BLOOD COUNT W/DIF F neutrophils % 74.8 % Not Available [address] [place], [address] 11/18/2023 15:57:13 11/18/19 24 11/18/2023 COMPL ETE BLOOD COUNT W/DIF F lymphocytes % 13.2 % Not Available [address] [place], [address] 11/18/2023 15:57:13 11/18/19 24 11/18/2023 COMPL ETE BLOOD COUNT W/DIF F monocytes % 5.9 % Not Available [address] [place], [address] 11/18/2023 15:57:13 11/18/19 24 11/18/2023 COMPL ETE BLOOD COUNT W/DIF F eosinophils % 5.2 % Not Available [address] [place], [address] 11/18/2023 15:57:13 11/18/19 24 11/18/2023 COMPL ETE BLOOD COUNT W/DIF F basophils % 0.6 % Not Available [address] [place], [address] 11/18/2023 15:57:13 11/18/19 24 11/18/2023 COMPL ETE BLOOD COUNT W/DIF F immature grans % 0.3 % Not Available Arilea avitia [address] [place], [address] 11/18/2023 15:57:13 11/18/19 24 11/18/2023 COMPL ETE BLOOD COUNT W/DIF F nucleated RBC 0.0 % 0.0-0. 3 normal Not Available [address] [place], [address] 11/18/2023 15:57:13 11/18/19 24 11/18/2023 COMPL ETE BLOOD COUNT W/DIF F absolute neutrophil count 6.50 10_3/ uL 1.2-6. 7 normal Not Available [address] [place], [address] 11/18/2023 15:57:13 11/18/19 24 11/18/2023 COMPL ETE BLOOD COUNT W/DIF F absolute lymphocyte count 1.15 10_3/ uL 1.2-3. 4 low Not Available [address] [place], [address] 11/18/2023 15:57:13 11/18/19 24 11/18/2023 COMPL ETE BLOOD COUNT W/DIF F absolute monocyte count 0.51 10_3/ uL 0.1-0. 8 normal Not Available [address] [place], [address] 11/18/2023 15:57:13 11/18/19 24 11/18/2023 COMPL ETE BLOOD COUNT W/DIF F absolute eosinophil count 0.45 10_3/ uL 0.0-0. 7 normal Not Available [address] [place], [address] 11/18/2023 15:57:13 11/18/19 24 11/18/2023 COMPL ETE BLOOD COUNT W/DIF F absolute basophil count 0.05 10_3/ uL 0.0-0. 2 normal Not Available [address] [place], [address] 11/18/2023 15:57:13 11/18/19 24 11/18/2023 PROTH ROMBI N TIME prothrombin time 10.5 sec 9.1-11 .1 normal Not Available [address] [place], [address] 11/18/2023 16:14:17 11/18/19 24 11/18/2023 PROTH ROMBI N TIME INR 1.0 0.9-1. 1 normal Recom noel d INR thera peuti c range s for orall y admin ister ed drugs are as follo ws: -Jair dard Inten sity 2.0 to 3.0 -High er Inten sity 3.0 to 4.5 Not Available [address] [place], [address] 11/18/2023 16:14:17 11/18/19 24 11/18/2023 PTT ACTIV ATED PTT activated 19.6 sec 23.6-3 2.8 low Hepar in Thera peuti c Range for PTT = 52-84 secon ds New Hepar in Thera peuti c Range 06/09 Not Available [address] [place], [address] 11/18/2023 16:14:18 11/18/19 24 11/18/2023 COMPR EHENS NADEEM METAB OLIC PANEL calcium 9.0 mg/dL 8.5-10 .1 normal Not Available [address] [place], [address] 11/18/2023 16:19:21 11/18/19 24 11/18/2023 COMPR EHENS NADEEM METAB OLIC PANEL glucose 100 mg/dL 74-106 normal Not Available Ethel green [address] [place], [address] 11/18/2023 16:19:21 11/18/19 24 11/18/2023 COMPR EHENS NADEEM METAB OLIC PANEL BUN 15 mg/dL 7-18 normal Not Available Ethel green [address] [place], [address] 11/18/2023 16:19:21 11/18/19 24 11/18/2023 COMPR EHENS NADEEM METAB OLIC PANEL creatinine 1.0 mg/dL 0.55-1 .02 normal Not Available [address] [place], [address] 11/18/2023 16:19:21 11/18/19 24 11/18/2023 COMPR EHENS [...] young er-ag ed adult s. Not Available [address] [place], [address] 11/18/2023 16:19:21 11/18/19 24 11/18/2023 COMPR EHENS NADEEM METAB OLIC PANEL total protein 6.8 g/dL 6.4-8. 2 normal Not Available [address] [place], [address] 11/18/2023 16:19:21 11/18/19 24 11/18/2023 COMPR EHENS NADEEM METAB OLIC PANEL albumin 3.8 g/dL 3.4-5. 0 normal Not Available [address] [place], [address] 11/18/2023 16:19:21 11/18/19 24 11/18/2023 COMPR EHENS NADEEM METAB OLIC PANEL bilirubin, total 0.92 mg/dL 0.2-1. 0 normal Not Available [address] [place], [address] 11/18/2023 16:19:21 11/18/19 24 11/18/2023 COMPR EHENS NADEEM METAB OLIC PANEL alk phos 68 U/L 46-116 normal Not Available [address] [place], [address] 11/18/2023 16:19:21 11/18/19 24 11/18/2023 COMPR EHENS NADEEM METAB OLIC PANEL sodium 144 mmol/ L 136-14 5 normal Not Available [address] [place], [address] 11/18/2023 16:19:21 11/18/19 24 11/18/2023 COMPR EHENS NADEEM METAB OLIC PANEL potassium 3.6 mmol/ L 3.5-5. 1 normal Not Available [address] [place], [address] 11/18/2023 16:19:21 11/18/19 24 11/18/2023 COMPR EHENS NADEEM METAB OLIC PANEL chloride 106 mmol/ L 98-107 normal Not Available [address] [place], [address] 11/18/2023 16:19:21 11/18/19 24 11/18/2023 COMPR EHENS NADEEM METAB OLIC PANEL CO2 29.6 mmol/ L 21.0-3 2.0 normal Not Available [address] [place], [address] 11/18/2023 16:19:21 11/18/19 24 11/18/2023 COMPR EHENS NADEEM METAB OLIC PANEL anion gap 8.4 mmol/ L 3-11 normal Not Available [address] [place], [address] 11/18/2023 16:19:21 11/18/19 24 11/18/2023 COMPR EHENS NADEEM METAB OLIC PANEL AST 15 U/L 15-37 normal Not Available Ethel green [address] [place], [address] 11/18/2023 16:19:21 11/18/19 24 11/18/2023 COMPR EHENS NADEEM METAB OLIC PANEL ALT 16 U/L 14-59 normal Not Available Ethel green [address] [place], [address] 11/18/2023 16:19:21 11/18/19 24 11/18/2023 MAGNE SIUM magnesium 1.9 mg/dL 1.8-2. 4 normal Not Available [address] [place], [address] 11/18/2023 16:19:21 11/18/19 24 11/18/2023 LIPAS E lipase 24 U/L 16-77 normal Not Available Ethel green [address] [place], [address] 11/18/2023 16:19:22 11/18/19 24 11/18/2023 TROPO LUCIA I troponin I < 50 NG/L < or =60 Not Available [address] [place], [address] 11/18/2023 16:19:22 11/18/19 24 11/18/2023 NT-GA OBNP nt-probnp 3052 pg/mL <300 high NT-pr [...] false negat nadeem resul ts. Not Available [address] [place], [address] 11/18/2023 16:19:23 11/18/19 24 11/18/2023 TSH (W/RE F FT4) TSH (w/ref FT4) 0.49 uIU/m L 0.36-3 .74 normal Not Available [address] [place], [address] 11/18/2023 16:22:20 11/18/19 24 11/18/2023 URINA LYSIS color Yellow yellow Not Available Ethel green [address] [place], [address] 11/18/2023 19:26:06 11/18/19 24 11/18/2023 URINA LYSIS clarity Clear clear Not Available Ethel green [address] [place], [address] 11/18/2023 19:26:06 11/18/19 24 11/18/2023 URINA LYSIS specific gravity 1.015 1.005- 1.025 normal Not Available [address] [place], [address] 11/18/2023 19:26:06 11/18/19 24 11/18/2023 URINA LYSIS pH 6.5 5-8 normal Not Available Ethel green [address] [place], [address] 11/18/2023 19:26:06 11/18/19 24 11/18/2023 URINA LYSIS leukocyte esterase Small negati ve abnormal Not Available [address] [place], [address] 11/18/2023 19:26:06 11/18/19 24 11/18/2023 URINA LYSIS nitrite Negati ve negati ve Not Available [address] [place], [address] 11/18/2023 19:26:06 11/18/19 24 11/18/2023 URINA LYSIS protein Negati ve mg/dL neg-tr patrick Not Available [address] [place], [address] 11/18/2023 19:26:06 11/18/19 24 11/18/2023 URINA LYSIS glucose Negati ve mg/dL negati ve Not Available [address] [place], [address] 11/18/2023 19:26:06 11/18/19 24 11/18/2023 URINA LYSIS ketones Negati ve mg/dL negati ve Not Available [address] [place], [address] 11/18/2023 19:26:06 11/18/19 24 11/18/2023 URINA LYSIS urobilinogen 0.2 mg/dL up to 0.2 Not Available [address] [place], [address] 11/18/2023 19:26:06 11/18/19 24 11/18/2023 URINA LYSIS bilirubin Negati ve negati ve Not Available [address] [place], [address] 11/18/2023 19:26:06 11/18/19 24 11/18/2023 URINA LYSIS blood Negati ve negati ve Not Available [address] [place], [address] 11/18/2023 19:26:06 11/18/19 24 11/18/2023 URINA LYSIS color Yellow yellow Not Available E[facility] [address] [place], [address] 11/18/2023 20:30:25 11/18/19 24 11/18/2023 URINA LYSIS clarity Clear clear Not Available [facility] [address] [place], [address] 11/18/2023 20:30:25 11/18/19 24 11/18/2023 URINA LYSIS specific gravity 1.015 1.005- 1.025 normal Not Available [address] [place], [address] 11/18/2023 20:30:25 11/18/19 24 11/18/2023 URINA LYSIS pH 6.5 5-8 normal Not Available Ethel green [address] [place], [address] 11/18/2023 20:30:25 11/18/19 24 11/18/2023 URINA LYSIS leukocyte esterase Small negati ve abnormal Not Available [address] [place], [address] 11/18/2023 20:30:25 11/18/19 24 11/18/2023 URINA LYSIS nitrite Negati ve negati ve Not Available [address] [place], [address] 11/18/2023 20:30:25 11/18/19 24 11/18/2023 URINA LYSIS protein Negati ve mg/dL neg-tr patrick Not Available [address] [place], [address] 11/18/2023 20:30:25 11/18/19 24 11/18/2023 URINA LYSIS glucose Negati ve mg/dL negati ve Not Available [address] [place], [address] 11/18/2023 20:30:25 11/18/19 24 11/18/2023 URINA LYSIS ketones Negati ve mg/dL negati ve Not Available [address] [place], [address] 11/18/2023 20:30:25 11/18/19 24 11/18/2023 URINA LYSIS urobilinogen 0.2 mg/dL up to 0.2 Not Available [address] [place], [address] 11/18/2023 20:30:25 11/18/19 24 11/18/2023 URINA LYSIS bilirubin Negati ve negati ve Not Available [address] [place], [address] 11/18/2023 20:30:25 11/18/19 24 11/18/2023 URINA LYSIS blood Negati ve negati ve Not Available [address] [place], [address] 11/18/2023 20:30:25 11/18/19 24 11/18/2023 MICRO SCOPI C FINDI NGS WBC 3-5 hpf 0-5 Not Available Ethel green [address] [place], [address] 11/18/2023 20:30:25 11/18/19 24 11/18/2023 MICRO SCOPI C FINDI NGS RBC Negati ve hpf 0-2 Not Available Joel smith [address] [place], [address] 11/18/2023 20:30:25 11/18/19 24 11/18/2023 MICRO SCOPI C FINDI NGS epithelial cells Many hpf negati ve Not Available [address] [place], [address] 11/18/2023 20:30:25 11/18/19 24 11/18/2023 MICRO SCOPI C FINDI NGS bacteria Few hpf negati ve Not Available [address] [place], [address] 11/18/2023 20:30:25 11/18/19 24 11/18/2023 MICRO SCOPI C FINDI NGS crystals Negati ve hpf negati ve Not Available [address] [place], [address] 11/18/2023 20:30:25 11/18/19 24 11/18/2023 MICRO SCOPI C FINDI NGS mucus Trace negati ve Not Available [address] [place], [address] 11/18/2023 20:30:25 11/18/19 24 11/18/2023 MICRO SCOPI C FINDI NGS C S indicated? No Not Available [address] [place], [address] 11/18/2023 20:30:25 11/18/19 24 11/18/2023 TROPO LUCIA I troponin I < 50 NG/L < or =60 Not Available [address] [place], [address] 11/18/2023 22:25:47 11/18/19 24 11/18/2023 VENOU S BLOOD GAS pH (venous) 7.45 7.31-7 .41 high Not Available [address] [place], [address] 11/18/2023 23:12:54 11/18/19 24 11/18/2023 VENOU S BLOOD GAS pCO2 (venous) 44 mmHg 41-51 normal Not Available [address] [place], [address] 11/18/2023 23:12:54 11/18/19 24 11/18/2023 VENOU S BLOOD GAS pO2 (venous) 37 mmHg Not Available [address] [place], [address] 11/18/2023 23:12:54 11/18/19 24 11/18/2023 VENOU S BLOOD GAS TCO2 (venous) 28 mmol/ L 24-29 normal Not Available [address] [place], [address] 11/18/2023 23:12:54 11/18/19 24 11/18/2023 VENOU S BLOOD GAS HCO3 (venous) 30 mmol/ L 23-28 high Not Available [address] [place], [address] 11/18/2023 23:12:54 11/18/19 24 11/18/2023 VENOU S BLOOD GAS BE (venous) 6 mmol/ L -2-3 high Not Available [address] [place], [address] 11/18/2023 23:12:54 11/18/19 24 11/18/2023 VENOU S BLOOD GAS O2 sat (venous) 74 % Not Available Ariela avitia [address] [place], [address] 11/18/2023 23:12:54 11/19/19 24 11/19/2023 COMPL ETE BLOOD COUNT W/DIF F WBC 7.07 10_3/ uL 4.4-10 .8 normal Not Available [address] [place], [address] 11/19/2023 07:03:22 11/19/19 24 11/19/2023 COMPL ETE BLOOD COUNT W/DIF F RBC 2.93 10_6/ uL 3.93-5 .22 low Not Available [address] [place], [address] 11/19/2023 07:03:22 11/19/19 24 11/19/2023 COMPL ETE BLOOD COUNT W/DIF F HGB 9.8 g/dL 11.2-1 5.7 low Not Available [address] [place], [address] 11/19/2023 07:03:22 11/19/19 24 11/19/2023 COMPL ETE BLOOD COUNT W/DIF F HCT 30.5 % 36.0-4 6.0 low Not Available [address] [place], [address] 11/19/2023 07:03:22 11/19/19 24 11/19/2023 COMPL ETE BLOOD COUNT W/DIF F MCV 104 fL 80-95 high Not Available Ethel green [address] [place], [address] 11/19/2023 07:03:22 11/19/19 24 11/19/2023 COMPL ETE BLOOD COUNT W/DIF F MCH 33.4 pg 27.0-3 3.0 high Not Available [address] [place], [address] 11/19/2023 07:03:22 11/19/19 24 11/19/2023 COMPL ETE BLOOD COUNT W/DIF F MCHC 32.1 % 32.0-3 6.0 normal Not Available [address] [place], [address] 11/19/2023 07:03:22 11/19/19 24 11/19/2023 COMPL ETE BLOOD COUNT W/DIF F RDW 14.4 % 11.7-1 4.6 normal Not Available [address] [place], [address] 11/19/2023 07:03:22 11/19/19 24 11/19/2023 COMPL ETE BLOOD COUNT W/DIF F platelet count 112 10_3/ uL 130-40 0 low Not Available [address] [place], [address] 11/19/2023 07:03:22 11/19/19 24 11/19/2023 COMPL ETE BLOOD COUNT W/DIF F MPV 10.8 fL 8.0-11 .0 normal Not Available [address] [place], [address] 11/19/2023 07:03:22 11/19/19 24 11/19/2023 COMPL ETE BLOOD COUNT W/DIF F neutrophils % 74.3 % Not Available [address] [place], [address] 11/19/2023 07:03:22 11/19/19 24 11/19/2023 COMPL ETE BLOOD COUNT W/DIF F lymphocytes % 14.1 % Not Available [address] [place], [address] 11/19/2023 07:03:22 11/19/19 24 11/19/2023 COMPL ETE BLOOD COUNT W/DIF F monocytes % 6.5 % Not Available [address] [place], [address] 11/19/2023 07:03:22 11/19/19 24 11/19/2023 COMPL ETE BLOOD COUNT W/DIF F eosinophils % 4.4 % Not Available [address] [place], [address] 11/19/2023 07:03:22 11/19/19 24 11/19/2023 COMPL ETE BLOOD COUNT W/DIF F basophils % 0.4 % Not Available [address] [place], [address] 11/19/2023 07:03:22 11/19/19 24 11/19/2023 COMPL ETE BLOOD COUNT W/DIF F immature grans % 0.3 % Not Available [address] [place], [address] 11/19/2023 07:03:22 11/19/19 24 11/19/2023 COMPL ETE BLOOD COUNT W/DIF F nucleated RBC 0.0 % 0.0-0. 3 normal Not Available [address] [place], [address] 11/19/2023 07:03:22 11/19/19 24 11/19/2023 COMPL ETE BLOOD COUNT W/DIF F absolute neutrophil count 5.25 10_3/ uL 1.2-6. 7 normal Not Available [address] [place], [address] 11/19/2023 07:03:22 11/19/19 24 11/19/2023 COMPL ETE BLOOD COUNT W/DIF F absolute lymphocyte count 1.00 10_3/ uL 1.2-3. 4 low Not Available [address] [place], [address] 11/19/2023 07:03:22 11/19/19 24 11/19/2023 COMPL ETE BLOOD COUNT W/DIF F absolute monocyte count 0.46 10_3/ uL 0.1-0. 8 normal Not Available [address] [place], [address] 11/19/2023 07:03:22 11/19/19 24 11/19/2023 COMPL ETE BLOOD COUNT W/DIF F absolute eosinophil count 0.31 10_3/ uL 0.0-0. 7 normal Not Available [address] [place], [address] 11/19/2023 07:03:22 11/19/19 24 11/19/2023 COMPL ETE BLOOD COUNT W/DIF F absolute basophil count 0.03 10_3/ uL 0.0-0. 2 normal Not Available [address] [place], [address] 11/19/2023 07:03:22 11/19/19 24 11/19/2023 IRON AND IBCT iron 45 ug/dL 50-170 low Not Available Ethel green [address] [place], [address] 11/19/2023 07:24:25 11/19/19 24 11/19/2023 IRON AND IBCT total iron binding capacity 284 ug/dL 250-45 0 normal Not Available [address] [place], [address] 11/19/2023 07:24:25 11/19/19 24 11/19/2023 IRON AND IBCT transferrin sat 16 % 15-50 normal Not Available Ariela avitia [address] [place], [address] 11/19/2023 07:24:25 11/19/19 24 11/19/2023 BASIC METAB OLIC PANEL calcium 8.5 mg/dL 8.5-10 .1 normal Not Available [address] [place], [address] 11/19/2023 07:49:36 11/19/19 24 11/19/2023 BASIC METAB OLIC PANEL glucose 93 mg/dL 74-106 normal Not Available Ethel green [address] [place], [address] 11/19/2023 07:49:36 11/19/19 24 11/19/2023 BASIC METAB OLIC PANEL BUN 12 mg/dL 7-18 normal Not Available Ethel green [address] [place], [address] 11/19/2023 07:49:36 11/19/19 24 11/19/2023 BASIC METAB OLIC PANEL creatinine 0.8 mg/dL 0.55-1 .02 normal Not Available [address] [place], [address] 11/19/2023 07:49:36 11/19/19 24 11/19/2023 BASIC METAB [...] young er-ag ed adult s. Not Available [address] [place], [address] 11/19/2023 07:49:36 11/19/19 24 11/19/2023 BASIC METAB OLIC PANEL sodium 147 mmol/ L 136-14 5 high Not Available [address] [place], [address] 11/19/2023 07:49:36 11/19/19 24 11/19/2023 BASIC METAB OLIC PANEL potassium 3.2 mmol/ L 3.5-5. 1 low Not Available [address] [place], [address] 11/19/2023 07:49:36 11/19/19 24 11/19/2023 BASIC METAB OLIC PANEL chloride 107 mmol/ L 98-107 normal Not Available [address] [place], [address] 11/19/2023 07:49:36 11/19/19 24 11/19/2023 BASIC METAB OLIC PANEL CO2 31.2 mmol/ L 21.0-3 2.0 normal Not Available [address] [place], [address] 11/19/2023 07:49:36 11/19/19 24 11/19/2023 BASIC METAB OLIC PANEL anion gap 8.8 mmol/ L 3-11 normal Not Available [address] [place], [address] 11/19/2023 07:49:36 11/19/19 24 11/19/2023 DANIEL TIN ferritin 169 NG/mL 8-252 normal Not Available [address] [place], [address] 11/19/2023 07:49:36 11/19/19 24 11/19/2023 MAGNE SIUM magnesium 1.8 mg/dL 1.8-2. 4 normal Not Available [address] [place], [address] 11/19/2023 07:49:37 11/19/19 24 11/19/2023 VITAM IN B12 vitamin B12 1124 pg/mL 193-98 6 high Not Available [address] [place], [address] 11/19/2023 07:49:37 11/19/19 24 11/19/2023 FOLAT E folate 19.3 NG/mL 8.6-20 .0 normal Not Available [address] [place], [address] 11/19/2023 07:49:37 11/19/19 24 11/20/2023 TRANS DANIEL N transferrin 188 mg/dL 201-35 2 abnormal Test perfo rmed or refer red by [facility] [address] [place] [address] Not Available [address] [place], [address] 11/23/2023 12:15:30 11/20/19 24 11/20/2023 BASIC METAB OLIC PANEL calcium 8.9 mg/dL 8.5-10 .1 normal Not Available [address] [place], [address] 11/20/2023 07:12:43 11/20/19 24 11/20/2023 BASIC METAB OLIC PANEL glucose 115 mg/dL 74-106 high Not Available Ethel green [address] [place], [address] 11/20/2023 07:12:43 11/20/19 24 11/20/2023 BASIC METAB OLIC PANEL BUN 19 mg/dL 7-18 high Not Available Ethel green [address] [place], [address] 11/20/2023 07:12:43 11/20/19 24 11/20/2023 BASIC METAB OLIC PANEL creatinine 1.0 mg/dL 0.55-1 .02 normal Not Available [address] [place], [address] 11/20/2023 07:12:43 11/20/19 24 11/20/2023 BASIC METAB [...] young er-ag ed adult s. Not Available [address] [place], [address] 11/20/2023 07:12:43 11/20/19 24 11/20/2023 BASIC METAB OLIC PANEL sodium 140 mmol/ L 136-14 5 normal Not Available [address] [place], [address] 11/20/2023 07:12:43 11/20/19 24 11/20/2023 BASIC METAB OLIC PANEL potassium 3.6 mmol/ L 3.5-5. 1 normal Not Available [address] [place], [address] 11/20/2023 07:12:43 11/20/19 24 11/20/2023 BASIC METAB OLIC PANEL chloride 100 mmol/ L 98-107 normal Not Available [address] [place], [address] 11/20/2023 07:12:43 11/20/19 24 11/20/2023 BASIC METAB OLIC PANEL CO2 33.2 mmol/ L 21.0-3 2.0 high Not Available [address] [place], [address] 11/20/2023 07:12:43 11/20/19 24 11/20/2023 BASIC METAB OLIC PANEL anion gap 6.8 mmol/ L 3-11 normal Not Available [address] [place], [address] 11/20/2023 07:12:43 12/02/19 24 12/02/2023 BASIC METAB OLIC PANEL calcium 9.8 mg/dL 8.5-10 .1 normal Not Available [address] [place], [address] 12/02/2023 16:25:21 12/02/19 24 12/02/2023 BASIC METAB OLIC PANEL glucose 104 mg/dL 74-106 normal Not Available Ethel green [address] [place], [address] 12/02/2023 16:25:21 12/02/19 24 12/02/2023 BASIC METAB OLIC PANEL BUN 20 mg/dL 7-18 high Not Available Ethel green [address] [place], [address] 12/02/2023 16:25:21 12/02/19 24 12/02/2023 BASIC METAB OLIC PANEL creatinine 1.1 mg/dL 0.55-1 .02 high Not Available [address] [place], [address] 12/02/2023 16:25:21 12/02/19 24 12/02/2023 BASIC METAB [...] young er-ag ed adult s. Not Available [address] [place], [address] 12/02/2023 16:25:21 12/02/19 24 12/02/2023 BASIC METAB OLIC PANEL sodium 143 mmol/ L 136-14 5 normal Not Available [address] [place], [address] 12/02/2023 16:25:21 12/02/19 24 12/02/2023 BASIC METAB OLIC PANEL potassium 4.6 mmol/ L 3.5-5. 1 normal Not Available [address] [place], [address] 12/02/2023 16:25:21 12/02/19 24 12/02/2023 BASIC METAB OLIC PANEL chloride 106 mmol/ L 98-107 normal Not Available [address] [place], [address] 12/02/2023 16:25:21 12/02/19 24 12/02/2023 BASIC METAB OLIC PANEL CO2 29.1 mmol/ L 21.0-3 2.0 normal Not Available [address] [place], [address] 12/02/2023 16:25:21 12/02/19 24 12/02/2023 BASIC METAB OLIC PANEL anion gap 7.9 mmol/ L 3-11 normal Not Available [address] [place], [address] 12/02/2023 16:25:21 12/02/19 24 12/02/2023 MAGNE SIUM magnesium 1.8 mg/dL 1.8-2. 4 normal Not Available [address] [place], [address] 12/02/2023 16:25:22 12/02/19 24 12/02/2023 NT-GA OBNP nt-probnp 2190 pg/mL <300 high NT-pr [...] false negat nadeem resul ts. Not Available [facility] (Registration ) [address] [place] [address] [place], [address], 12/02/2023 16:25:22 12/02/19 24 12/02/2023 COMPL ETE BLOOD COUNT NO DIFF WBC 7.43 10_3/ uL 4.4-10 .8 normal Not Available [address] [place], [address] 12/02/2023 16:35:23 12/02/19 24 12/02/2023 COMPL ETE BLOOD COUNT NO DIFF RBC 3.18 10_6/ uL 3.93-5 .22 low Not Available [address] [place], [address] 12/02/2023 16:35:23 12/02/19 24 12/02/2023 COMPL ETE BLOOD COUNT NO DIFF HGB 10.6 g/dL 11.2-1 5.7 low Not Available [address] [place], [address] 12/02/2023 16:35:23 12/02/19 24 12/02/2023 COMPL ETE BLOOD COUNT NO DIFF HCT 33.5 % 36.0-4 6.0 low Not Available [address] [place], [address] 12/02/2023 16:35:23 12/02/19 24 12/02/2023 COMPL ETE BLOOD COUNT NO DIFF MCV 105 fL 80-95 high 1+ macro cytos is Not Available [address] [place], [address] 12/02/2023 16:35:23 12/02/19 24 12/02/2023 COMPL ETE BLOOD COUNT NO DIFF MCH 33.3 pg 27.0-3 3.0 high Not Available [address] [place], [address] 12/02/2023 16:35:23 12/02/19 24 12/02/2023 COMPL ETE BLOOD COUNT NO DIFF MCHC 31.6 % 32.0-3 6.0 low Not Available [address] [place], [address] 12/02/2023 16:35:23 12/02/19 24 12/02/2023 COMPL ETE BLOOD COUNT NO DIFF RDW 13.3 % 11.7-1 4.6 normal Not Available [address] [place], [address] 12/02/2023 16:35:23 12/02/19 24 12/02/2023 COMPL ETE BLOOD COUNT NO DIFF platelet count 140 10_3/ uL 130-40 0 normal Not Available [address] [place], [address] 12/02/2023 16:35:23 12/02/19 24 12/02/2023 COMPL ETE BLOOD COUNT NO DIFF MPV 11.8 fL 8.0-11 .0 high Not Available [address] [place], [address] 12/02/2023 16:35:23 04/18/20 24 04/18/2024 COMPL ETE BLOOD COUNT NO DIFF WBC 6.58 10_3/ uL 4.4-10 .8 normal Not Available [address] [place], [address] 04/18/2024 15:08:25 04/18/20 24 04/18/2024 COMPL ETE BLOOD COUNT NO DIFF RBC 3.70 10_6/ uL 3.93-5 .22 low Not Available [address] [place], [address] 04/18/2024 15:08:25 04/18/20 24 04/18/2024 COMPL ETE BLOOD COUNT NO DIFF HGB 12.0 g/dL 11.2-1 5.7 normal Not Available [address] [place], [address] 04/18/2024 15:08:25 04/18/20 24 04/18/2024 COMPL ETE BLOOD COUNT NO DIFF HCT 38.0 % 36.0-4 6.0 normal Not Available [address] [place], [address] 04/18/2024 15:08:25 04/18/20 24 04/18/2024 COMPL ETE BLOOD COUNT NO DIFF MCV 103 fL 80-95 high Not Available [address] [place], [address] 04/18/2024 15:08:25 04/18/20 24 04/18/2024 COMPL ETE BLOOD COUNT NO DIFF MCH 32.4 pg 27.0-3 3.0 normal Not Available [address] [place], [address] 04/18/2024 15:08:25 04/18/20 24 04/18/2024 COMPL ETE BLOOD COUNT NO DIFF MCHC 31.6 % 32.0-3 6.0 low Not Available [address] [place], [address] 04/18/2024 15:08:25 04/18/20 24 04/18/2024 COMPL ETE BLOOD COUNT NO DIFF RDW 15.6 % 11.7-1 4.6 high Not Available [address] [place], [address] 04/18/2024 15:08:25 04/18/20 24 04/18/2024 COMPL ETE BLOOD COUNT NO DIFF platelet count 124 10_3/ uL 130-40 0 low Not Available [address] [place], [address] 04/18/2024 15:08:25 04/18/20 24 04/18/2024 COMPL ETE BLOOD COUNT NO DIFF MPV 11.2 fL 8.0-11 .0 high Not Available [address] [place], [address] 04/18/2024 15:08:25 04/18/20 24 04/18/2024 IRON AND IBCT iron 65 ug/dL 50-170 normal Not Available [facility] (Registration ) [address] [place] [address] [place], [address], 04/18/2024 16:07:17 04/18/20 24 04/18/2024 IRON AND IBCT total iron binding capacity 318 ug/dL 250-45 0 normal Not Available [facility] (Registration ) [address] [place] [address] [place], [address], 04/18/2024 16:07:17 04/18/20 24 04/18/2024 IRON AND IBCT transferrin sat 20 % 15-50 normal Not Available [facility] (Registration ) [address] [place] [address] [place], [address], 04/18/2024 16:07:17 04/18/20 24 04/18/2024 BASIC METAB OLIC PANEL calcium 9.4 mg/dL 8.5-10 .1 normal Not Available [facility] (Registration ) [address] [place] [address] [place], [address], 04/18/2024 16:09:17 04/18/20 24 04/18/2024 BASIC METAB OLIC PANEL glucose 103 mg/dL 74-106 normal Not Available [facility] (Registration ) [address] [place] [address] [place], [address], 04/18/2024 16:09:17 04/18/20 24 04/18/2024 BASIC METAB OLIC PANEL BUN 21 mg/dL 7-18 high Not Available [facility] (Registration ) [address] [place] [address] [place], [address], 04/18/2024 16:09:17 04/18/20 24 04/18/2024 BASIC METAB OLIC PANEL creatinine 1.0 mg/dL 0.55-1 .02 normal Not Available [facility] (Registration ) [address] [place] [address] [place], [address], 04/18/2024 16:09:17 04/18/20 24 04/18/2024 BASIC METAB [...] young er-ag ed adult s. Not Available [facility] (Registration ) [address] [place] [address] [place], [address], 04/18/2024 16:09:17 04/18/20 24 04/18/2024 BASIC METAB OLIC PANEL sodium 145 mmol/ L 136-14 5 normal Not Available [facility] (Registration ) [address] [place] [address] [place], [address], 04/18/2024 16:09:17 04/18/20 24 04/18/2024 BASIC METAB OLIC PANEL potassium 4.2 mmol/ L 3.5-5. 1 normal Not Available [facility] (Registration ) [address] [place] [address] [place], [address], 04/18/2024 16:09:17 04/18/20 24 04/18/2024 BASIC METAB OLIC PANEL chloride 107 mmol/ L 98-107 normal Not Available [facility] (Registration ) [address] [place] [address] [place], [address], 04/18/2024 16:09:17 04/18/20 24 04/18/2024 BASIC METAB OLIC PANEL CO2 31.4 mmol/ L 21.0-3 2.0 normal Not Available [facility] (Registration ) [address] [place] [address] [place], [address], 04/18/2024 16:09:17 04/18/20 24 04/18/2024 BASIC METAB OLIC PANEL anion gap 6.6 mmol/ L 3-11 normal Not Available [facility] (Registration ) [address] [place] [address] [place], [address], 04/18/2024 16:09:17 04/18/20 24 04/18/2024 DANIEL TIN ferritin 211 NG/mL 8-252 normal Not Available [facility] (Registration ) [address] [place] [address] [place], [address], 04/18/2024 16:09:18 04/18/20 24 04/18/2024 TSH (W/RE F FT4) TSH (w/ref FT4) 2.17 uIU/m L 0.36-3 .74 normal NOTE: Supra -phys iolog ic doses of Bioti n(B7) may cause false negat nadeem resul ts. Not Available [facility] (Registration ) [address] [place] [address] [place], [address], 04/18/2024 16:09:18 04/18/20 24 04/18/2024 VITAM IN D 25 TOTAL vitamin D 25 total 63.9 NG/mL 30-100 normal Refer ence Guide lines : Defic ient: <10 ng/ml Insuf ficie nt: 10-30 ng/ml Suffi cient : 30-10 0 ng/ml Toxic : >100 ng/ml Not Available [address] [place], [address] 04/18/2024 16:09:19 04/18/20 24 04/18/2024 HEMOG LOBIN [...] pleme nt 1):S1 3-s28 . Not Available [facility] (Registration ) [address] , [place], [address], 04/18/2024 16:21:24 10/14/19 24 10/14/2023 elect rocar diogr am No observ ation record ed. [facility] [address] , [place], [address], 10/14/2023 11:56:20 10/14/19 24 elect rocar diogr am No observ ation record ed. Not Available 2023 10:55:07 11/04/19 24 10/14/2023 rhyth m strip , EKG* No observ ation record ed. [email or web address] Not Available 2023 10:18:08 11/18/19 24 11/18/2023 US, duple x, lower extre mity Patien t Name: Rema Olson Unit #: [id number] Loc: ER Sonal salazar [facility] er: Braydon Doyle Accoun t #: [id number] Status : REG ER Primar y Care [facility] er: Erich Her M.D. Date of Exam: [...] tation , and color Dopple r. The online merchant ior tibial veins are patent . IMPRES [...] at the addres s above. Thank- you. [facility] [address], [place], [address] 11/18/2023 16:48:49 11/18/19 24 11/18/2023 CT imagi martin hackett Name: Rema Olson Unit #: [id number] Loc: ER Sonal salazar Provid er: Braydon Doyle Accoun t #: [id number] Status : REG ER Primar y Care [...] interl obular septal thicke jama greate r online merchant iorly which could indica te mild CHF. No consol idatio n or domina nt measur able mass. Pleura : Small left pleura l effusi on. Heart: The heart is modera tely dilate d. Fitness Director ior perica rdial effusi on. Minima l [...] . Small perica rdial effusi on seen online merchant iorly. Small left pleura l effusi on. [...] at the addres s above. Thank- you. [facility] [address], [place], [address] 11/19/2023 12:12:11 11/19/19 24 11/19/2023 ultra sound imagi martin repor roxann hackett Name: Rema Olson Unit #: [id number] Loc: MS Sonal salazar Provid er: Huseyin Bolaños M.D. Accoun t #: [id number] Status : ADM IN Primar y [...] at the addres s above. Thank- you. [place] [id number] [place], [address] 11/19/2023 12:12:11 01/18/20 24 11/15/2018 imagi ng/di [...] humeral fracture 2023- MD [address], [place], [address] , [facility] 4 17:34:10 Hypothyr oidism 30633223 Active 1959 EVIE shaw, [facility] 4 10:29:59 [facility] hyperten jason 45539110 Active 1959 EVIE shaw, [facility] 4 10:29:36 Hyperlip idemia 47958618 Active 1959 on statin MD [address], [place], [address] , [facility] 4 20:35:18 Spinal stenosis of lumbar region 24333303 Active 2012 s/p lumbar for[place] L4 MD [address], [place], [address] , [facility] 4 20:36:41 Sleep apnea 76397826 Active 2012 on CPAP MD [address], [place], [address] , [facility] 4 20:39:31 Gastroes ophageal reflux disease without esophagi tis 011259208 Completed 195908/12/2023 Removal Reason: resolved with surgical repair of HH MD [address], [place], [address] , [facility] 4 10:41:24 Family history of malignan t neoplasm of digestiv e organ 977789473 Active [address], [place], [address] , [facility] 4 20:37:03 Paresthe samir 03078995 Completed 201412/01/2014 11/28/19 15 - Comments only - Erich Her MD - check B12 and folate Problem Code: R20.2; Problem Code Type: ICD-10; Not Available [facility] 3 05:53:48 Adult health examinat ion Active [address], [place], [address] , [facility] 4 20:33:34 Pre-surg ruben evaluati on [...] Z01.818; Problem Code Type: ICD-10; Not Available [facility] 3 05:53:48 Localize d edema 804912518 Completed 201501/29/2016 12/13/19 16 - Comments only - Erich Her MD - and some on left as well, will check BMP. 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 Nusrat holt for removal. Problem Code: L72.3; Problem Code Type: ICD-10; Not Available [facility] 3 05:53:49 Chronic ulcer of foot [id number] Completed 201601/16/2017 12/18/19 17 - Comments only - Erich Her MD - Due to injury. This does appear to have some granulat ion tissue and to be healing. She is given a prescrip tion for Keflex to take only if erythema seems to be extendin g. Problem Code: L97.509; Problem Code Type: ICD-10; Not Available [facility] 3 05:53:49 Diarrhea [id number] Completed 201602/10/2017 02/05/20 17 - Comments only - Erich Her MD - [facility] over several months, we will collect stool for C. 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 6 mm PT1NO E2P2 poistive , HER2 negative ERICH HER MD [address], [place], [address] , [facility] 4 20:38:49 Pain in left lower limb 914847497 Active 2016 EVIE shaw, [facility] 4 10:32:00 Pain in thoracic spine 426159462 Active 2016 EVIE shaw, [facility] 4 10:32:06 Spasm 40424825 Active 2017 EVIE shaw, [facility] 4 10:33:28 Abdomina l distensi on, gaseous 951381096 Completed 201703/08/2018 Problem Code: R14.0; Problem Code Type: ICD-10; Not Available [facility] 3 05:53:50 Cellulit is of toe 86339175 Completed 201808/12/2018 Problem Code: L03.039; Problem Code Type: ICD-10; Not Available [facility] 3 05:53:51 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 4 14:36:02 Tachsrinivas lea 9166164 Completed 201811/25/2018 Problem Code: R00.0; Problem Code Type: ICD-10; Not Available [facility] 3 05:53:51 Pre-surg ruben evaluati on Completed 201811/25/2018 Problem Code: Z01.818; Problem Code Type: ICD-10; Not Available [facility] 3 05:53:51 Iron deficien cy anemia 62807846 Active 2019 elevated MCV: normal B12 2021, normal folate 2018 IV iron 2023 EGD 01/2022 paraesop hageal hernia (since repaired ) colo 03/2017 normal ERICH HER MD [facility] [address], [place], [address] , [facility], [facility]. 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 - Likely aggravat ed by increase [...] M54.40; Problem Code Type: ICD-10; Not Available [facility] 3 05:53:52 Right side sciatica 50195301294 9101 Active 2019 EVIE RUFUS shaw, [facility] 4 10:33:09 Left side sciatica 35132246539 9104 Active [address], [facility] [address] , [facility] 4 17:20:20 Diaphrag matic hernia 50280105 Completed 202108/11/2023 Removal Reason: s/p repair MD [address], [facility] [address] , [facility] 4 20:50:39 History of SARS-CoV -2 99434882919 2266103 Completed 202104/04/2022 03/21/20 22 - Comments only - Erich Her MD - testing is negative today in the office. Still some fatigue but otherwis e recoveri ng. Did get MAB. Already had covid bivalent booster prior to illness Problem Code: Z86.16; Problem Code Type: ICD-10; Not Available [facility] 3 05:53:53 Diarrhea 82999761 Completed 202104/18/2022 Problem Code: R19.7; Problem Code Type: ICD-10; MD [address], [facility] [address] , [facility] 4 21:03:02 Screenin g mammogra phy Completed 202208/11/[address], [facility] [address] , [facility] 4 20:36:56 Carpal tunnel syndrome of left wrist 15865403583 9102 Completed 202201/23/2023 Problem Code: G56.02; Problem Code Type: ICD-10; Not Available [facility] 4 05:37:46 Diarrhea 65147750 Active 2022 started colestip ol 01/2023 ERICH HER MD [address], [place], [address] , [facility]. 4 21:03:02 Carpal tunnel syndrome of right wrist 51329975006 9108 Completed 201803/19/2020 Problem Code: G56.01; Problem Code Type: ICD-10; Not Available [facility] 3 05:53:55 Pain of left knee joint 70923068131 4107 Completed 202107/30/2022 Problem Code: M25.562; Problem Code Type: ICD-10; Not Available [facility] 3 05:53:55 Hypersom korina 66066102 Completed 201311/27/2014 Problem Code: 780.54; Problem Code Type: ICD-9; Not Available [facility] 3 05:53:56 Screenin g for disorder Completed 201909/11/2021 Problem Code: Z13.9; Problem Code Type: ICD-10; Not Available [facility] 3 05:53:56 Anemia 992852652 Completed 201903/19/2020 Problem Code: D64.9; Problem Code Type: ICD-10; Not Available [facility] 3 05:53:56 Long-ter m current use of anticoag ulant 853032189 Completed 201709/01/2018 Problem Code: Z79.01; Problem Code Type: ICD-10; Not Available [facility] 3 05:53:57 Chronic rhinitis 44771985 Completed 202108/12/2021 Problem Code: J31.0; Problem Code Type: ICD-10; Not Available [facility] 3 05:53:57 Impaired fasting glycemia 983120807 Completed 201401/28/2023 Not Available [facility] 3 05:53:57 Fatigue 42202342 Completed 201903/19/2020 Problem Code: R53.83; Problem Code Type: ICD-10; Not Available [facility] 3 05:53:58 Upper respirat ory tract infectio n caused by Influenz a A 66470672634 9104 Completed 201707/02/2017 Problem Code: J09.x2; Problem Code Type: ICD-10; Not Available [facility] 3 05:53:59 Diarrhea 71545240 Completed 201709/01/2018 ERICH HER MD [facility] [address], [place], [address] [facility] 4 21:03:02 Acute upper respirat ory infectio n 49243492 Completed 202108/26/2021 Problem Code: J06.9; Problem Code Type: ICD-10; Not Available [facility] 3 05:53:59 Pain in right foot 85374363217 9107 Completed 202207/30/2022 Problem Code: M79.671; Problem Code Type: ICD-10; Not Available [facility] 3 05:54:00 Breast composit ion 893356440 Completed 201601/28/2023 Not Available [facility] 3 05:54:00 Changes in skin texture 787990457 Completed 202207/30/2022 Problem Code: R23.4; Problem Code Type: ICD-10; Not Available [facility] 3 05:54:01 Spasm 95207857 Completed 201603/23/2017 Problem Code: R25.2; Problem Code Type: ICD-10; EVIE shaw [facility] 4 10:33:28 Hyperten sive disorder 62548331 Completed 11/28/19 15 - Comments only - Erich Her MD - [facility] ed, no change in medicati ons Not Available [facility] 3 05:54:03 Arthralg ia of the ankle and/or foot 634634439 Completed 201501/30/2016 Problem Code: M25.571; Problem Code Type: ICD-10; Not Available [facility] 3 05:54:03 Dyspnea 759805730 Completed 201903/19/2020 Problem Code: R06.02; Problem Code Type: ICD-10; Danica shaw [facility] 4 14:39:47 Trigger finger of right hand 81164531250 526623 Completed 201803/19/2020 Problem Code: M65.341; Problem Code Type: ICD-10; Not Available [facility] 3 05:54:06 Cough 54602116 Completed 202108/12/2021 Problem Code: R05.1; Problem Code Type: ICD-10; Not Available [facility] 3 05:54:06 At risk - finding 116796136 Completed 201811/11/2018 Problem Code: Z91.89; Problem Code Type: ICD-10; Not Available [facility] 3 05:54:06 Cough 54945714 Completed 201706/15/2017 Problem Code: R05; Problem Code Type: ICD-10; Not Available [facility] 3 05:54:07 Preopera tive cardiova scular examinat ion Completed 202112/18/2021 Problem Code: Z01.810; Problem Code Type: ICD-10; Not Available [facility] 3 05:54:08 Arterial bruit 39677596 Completed 202109/11/2021 Not Available [facility] 3 05:54:08 Gastroes ophageal reflux disease 835200522 Completed Not Available [facility] 3 05:54:09 Imaging of musculos keletal system abnormal 966082801 Completed 201603/23/2017 Problem Code: R93.7; Problem Code Type: ICD-10; Not Available [facility] 3 05:54:10 Blood glucose outside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
--- OUTSIDE RECORDS SUMMARY | 2024-04-25 11:03 | XMS_ITS | Encounter Summary ---
Author Organization [facility] [place] [address] Care Team Providers Care Quality Improvement Analyst Name Role Phone Ana Her MD Primary Care Provider [phone] Encounter Details Date Type Department Care Team (Late st Contact Info) Description 01/08/2022 7:42 AM EDT Anesthesia Event [place] [address] Alisa Naqvi MD [facility] [place] [address] Anesthesia Record Procedure Summary Procedure Name Responsible Anesthesiologist Anesthesia Start Time Anesthesia Stop Time EGD, UPPER GI ENDOSCOPY (WRVU 2.09) (Trunk) Alias Naqvi MD 01/08/22 0742 01/08/22 0826 Events [...] cephalic vein (lateral side of arm), left; [id number] catheter system; Anatomical Landmarks; 20 gauge; Josyln RN; tolerated well, appears comfortable; 01/08/22; [id number] [...] Procedure Summary Date: 01/08/22 Room / Location: [facility] OR [address] [place] [address] MAIN OR Anesthesia Start: 741 Anesthesia Stop: 825 Procedure: EGD, UPPER GI ENDOSCOPY (N/A Trunk) Diagnosis: (Hiatal hernia) Surgeons: Laura Will MD Responsible Provider: Alisa Naqvi MD Anesthesia Type: general ASA Status: 3 All Anesthesia Providers: Anesthesiologist: Alisa Naqvi MD Grades 9 Through 12 Teacher: Nghia Valerio MD Vitals Value Taken Time BP 98/56 01/08/22 0823 Temp Pulse Resp SpO2 99 % 01/08/22826 Pain Level Vitals shown include unvalidated device data. Patient Location: PACU/[facility] Level of Consciousness: Conscious but Sleepy [...] of left breast of female, estrogen receptor vjiizdgs33/25/2017 ??? Bicuspid aortic valve 06/10/2016 ??? Dyspnea [...] 6.43) performed by Malika Chen MD at [facility] MAIN OR ??? PRO INTRAOP SENTINEL LYMPH ID W/DYE INJECTION Left 03/30/2017 INTRAOPERATIVE ID (MAPPING) SENTINEL LYMPH NODE,INCLUDES INJECTION (WRVU 2.5) performed by Malika Chen MD at [facility] MAIN OR ??? PRO MASTECTOMY PARTIAL Left 03/30/2017 MASTECTOMY PARTIAL (WRVU 10.13) performed by Malika Chen MD at [facility] MAIN OR Social History Tobacco [...] mg documented in this encounter Care Teams Quality Improvement Analyst Relationship Specialty Start Date End Date Ana Her MD [facility] [address] [place] [address] PCP - General 07/29/13 documented as of this encounter
--- OUTSIDE RECORDS SUMMARY | 2024-04-25 11:03 | XMS_ITS | Encounter Summary ---
[place] [address] Care Team Providers Care Shaker Repairer Name Role Phone Ana Her MD Primary Care Provider [phone] Reason for Visit * Auth/Cert Specialty Diagnoses / Procedures Referred By Christiano hackett Referred To Contact Diagnoses S/P repair of paraesophageal hernia Post-Op monitoring Procedures PRO LAPARSCOPY REPAIR PARAESOPHAGEAL HERNIA INCL FUNDOPLASTY W/O MESH LAPAROSCOPIC PARAESOPHAGEAL HERNIA REPAIR W/FUNDOPLASTY, W/O MESH (WRVU 26.6) MODIFIER TOUPET FUNDOPLASTY Shania Will MD [facility] [place] [address] [facility] Referral ID Status Reason Start Date Expiration Date Visits Re quested Visits Authorized [id number] 1 1 Encounter Details Date Type Department Care Team (Latest Contact Info) Description 03/05/2022 11:55 AM EDT - 03/07/2022 10:00 AM EDT Hospital Encounter [place] [id number] Shania Will MD [facility] [place] [address] Discharge Disposition: Home Social History Tobacco Use [...] 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 Anemia D64.9 ??? Aortic valve [...] Per chart review, her creatinine levels in 0919-2224 ranged from 0.87-1.50 indicative of possible undiagnosed [...] Shania Will MD General Surgery at [facility] Arrive at: Fine Grade Bulldozer Operator Area [phone] Instructions Given to Patient at Discharge: Patient [...] hours please call the Surgery Clinic at [phone] before 5 PM on weekdays. For questions after hours and on weekends please call the hospital table cut off saw operator at [phone] and ask for the General Surgery resident nutrition aides teacher. They may not be familiar with [...] post Sly diet, as instructed by the insole filler in the hospital for a period of [...] renal function. Please call the clinic at [phone] to confirm or reschedule. Future Appointments Date Time Provider Department Center 04/03/2022 12:00 PM Shania Will MD [facility] SURG [facility] General Instructions None Future Appointments and Orders Future Appointments and Orders Future Appointments Provider Department Dept Phone 04/03/2022 12:00 PM Shania Will MD General Surgery at [facility] Arrive at: Fine Grade Bulldozer Operator Area Signed: Shena Harden MD 03/07/22 7:18 AM [facility] 2026 Primary [place] Physician: MD Geovany David DR [facility] [id number] documented in this encounter Discharge Instructions * [...] hours please call the Surgery Clinic at [phone] before 5 PM on weekdays. For questions after hours and on weekends please call the hospital table cut off saw operator at [phone] and ask for the General Surgery resident nutrition aides teacher. They may not be familiar with [...] post Sly diet, as instructed by the insole filler in the hospital for a period of [...] renal function. Please call the clinic at [phone] to confirm or reschedule. Future Appointments Date Time Provider Department Center 04/03/2022 12:00 PM Shania Will MD [facility] SURG [facility] documented in this encounter Medications at Time [...] Ocampo RN - 03/07/2022 10:25 AM EDT [facility] Short Stay Unit Discharge Note All [...] Sly Diet Education to pt Digna Olson. Quality Assurance Director metwith pt at bedside to deliver full [...] she is noticing some overall improvement post op.Quality Assurance Director took note of this and encouraged the [...] Department contact information provided. Pt appreciate of business writer's time. Nutrition to follow as needed. [...] Perez MD 03/05/2022 Minimally Invasive Surgery Pager #[phone] * Lorrie Slater RN - 03/05/2022 6:46 [...] ?? She is followed by cardiology at [facility], and is on xarelto. ?? 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 Anemia D64.9 ??? Aortic valve [...] 6.43) performed by Malika Chen MD at [facility] MAIN OR ??? PRO INTRAOP SENTINEL LYMPH ID W/DYE INJECTION Left 03/30/2017 ?? INTRAOPERATIVE ID (MAPPING) SENTINEL LYMPH NODE,INCLUDES INJECTION (WRVU 2.5) performed by Malika Chen MD at [facility] MAIN OR ??? PRO MASTECTOMY PARTIAL Left 03/30/2017 ?? MASTECTOMY PARTIAL (WRVU 10.13) performed by Malika Chen MD at [facility] MAIN OR ?? Cholecystectomy ?? [...] Operative Note Patient Name: Digna Olson : [id number] MR#: [id number] Case Date: 03/05/2022 Surgeon: Surgeon(s) and Role: [...] MD - 03/05/2022 2:32 PM EDT [facility] Operative Note Patient Name: Digna Olson : [id number] MR#: [id number] Case Date: 03/05/2022 Surgeon: Surgeon(s) and Role: [...] Repair Paraesophageal Hernia Incl Fundoplasty W/O Mesh (90507) 03/05/2022 1:58 PM EDT Paraesophageal Hernia POCT GLUCOSE Routine 03/05/2022 12:18 PM EDT LAPAROSCOPIC PARAESOPHAGEAL HERNIA REPAIR W FUNDOPLASTY, W/O MESH Routine 03/05/2022 12:02 PM EDT documented in this encounter Results * (ABNORMAL) Differential, Automated (03/07/2022 5:08 AM EDT) Neutrophil % 80.0 % [facility] Neutrophil Absolute 5.30 1.70 - 6.10 x10(3)/mc L [facility] Lymph % 12.1 % [facility] Lymphocytes Abs 0.8(L) 0.9 - 3.2 x10(3)/mc L [facility] Monocyte % 7.6 % [facility] Monocyte Abs 0.5 0.3 - 0.9 x10(3)/mc L [facility] Eos % 0.0 % [facility] Eosinophils Abs 0.0 0.0 - 0.4 x10(3)/mc L [facility] Basophil % 0.0 % [facility] Baso Absolute 0.0 0.0 - 0.1 x10(3)/[facility] Immature Gran % 0.30 % [facility] Comment: Immature granulocytes(IG's)percentage and absolute count will include metamyelocytes, myelocytes, and promyelocytes. Blood smears from CBCs yielding IG's will be scanned manually for concordance. If this scan disagrees with the automated IG or if promyelocytes are noted, a manual differential will be performed. Immature Gran Absolute 0.02 0.00 - 0.04 x10(3)/[facility] Blood 03/07/2022 5:08 AM EDT 03/07/2022 5:19 AM EDT Narrative Resulting Agency Comment Spec In Lab Nino Levy MD HEMATOLOGY ORDERABLE S Performing Organization Address City/State/[facility] Co de Phone Number [facility] [place] [address] * (ABNORMAL) Hemogram (03/07/2022 5:08 AM EDT) White Blood Cell 6.6 4.0 - 9.5 x10(3)/[facility] Red Blood Cell 3.16(L) 4.00 - 5.21 x10(6)/[facility] Hemoglobin 10.7(L) 11.7 - 15.5 g/dL [facility] Hematocrit 31.7(L) 35.7 - 45.8 % [facility] Mean Cell Volume 100.3(H) 82.6 - 94.4 fL [facility] Mean Cell Hemoglobin 33.9(H) 27.1 - 32.0 pg [facility] Mean Cell Hemoglobin Concentration 33.8 31.7 - 35.0 g/dL [facility] Platelet 110(L) 145 - 357 x10(3)/[facility] RDW Standard Deviation 47.5(H) 37.0 - 46.0 fL [facility] RDW coefficient of variation 12.9 11.5 - 14.1 % [facility] Mean Platelet Volume 11.7 7.6 - 12.9 fL [facility] NRBC% auto 0.0 % [facility] NRBC Absolute 0.000 0.000 - 0.000 x10(3)/mc L [facility] Blood 03/07/2022 5:08 AM EDT 03/07/2022 5:19 AM EDT Narrative Resulting Agency Comment Spec In Lab Nino Levy MD HEMATOLOGY ORDERABLE S [facility] [place] [address] * Phosphorus (03/07/2022 5:08 AM EDT) Phosphorus 2.7 2.5 - 4.5 mg/dL [facility] Blood 03/07/2022 5:08 AM EDT 03/07/2022 5:19 AM EDT Narrative Resulting Agency Comment Spec In Lab Shania Will MD CHEMISTRY ORDERABLE S Performing Organization Address City/[facility]/ZIP Co de Phone Number [facility] [place] [address] * Magnesium (03/07/2022 5:08 AM EDT) Magnesium 0.89 0.69 - 1.07 mmol/L [facility] Blood 03/07/2022 5:08 AM EDT 03/07/2022 5:19 AM EDT Narrative Resulting Agency Comment Spec In Lab Shania Will MD CHEMISTRY ORDERABLE S [facility] [place] [address] * (ABNORMAL) Basic Metabolic Panel (non-fasting) (03/07/2022 5:08 AM EDT) Glucose 111 65 - 199 mg/dL [facility] Comment:Diabetes: >=200 mg/d L plus symptoms Blood Urea Nitrogen 22(H) 8 - 18 mg/dL [facility] Creatinine 0.93 0.70 - 1.20 mg/dL [facility] Sodium 131(L) 135 - 145 mmol/L [facility] Potassium 4.5 3.5 - 5.0 mmol/L [facility] Comment: Please note: ??Patients with WBC >100,000 may have falsely elevated Potassium levels. ??For accurate Potassium quantification in these patients send serum separator tube (gold top) for subsequent determinations. ??Contact the Clinical Chemistry Laboratory if there are any questions. Chloride 100 98 - 107 mmol/L [facility] Carbon Dioxide 22 22 - 31 mmol/L [facility] Anion Gap 9 5 - 15 mmol/L [facility] Calcium 9.2 8.5 - 10.5 mg/dL [facility] Est Glomerular Filtration Rate 64 >=60 mL/min/1. 73 m?? [facility] Comment: This patient's estimated GFR [...] Lab Shania Will MD [place] [address] * (ABNORMAL) Differential, Automated (03/06/2022 10:15 AM EDT) Pathologist [facility] Neutrophil % 90.7 % [facility] Neutrophil Absolute 5.79 1.70 - 6.10 x10(3)/ L [facility] Lymph % 5.0 % [facility] Lymphocytes Abs 0.3(L) 0.9 - 3.2 x10(3)/ L [facility] Monocyte % 3.8 % [facility] Monocyte Abs 0.2(L) 0.3 - 0.9 x10(3)/[facility] Eos % 0.0 % [facility] Eosinophils Abs 0.0 0.0 - 0.4 x10(3)/[facility] Basophil % 0.0 % [facility] Baso Absolute 0.0 0.0 - 0.1 x10(3)/ L [facility] Immature Gran % 0.50 % [facility] Comment: Immature granulocytes(IG's)percentage and absolute count will include metamyelocytes, myelocytes, and promyelocytes. Blood smears from CBCs yielding IG's will be scanned manually for concordance. If this scan disagrees with the automated IG or if promyelocytes are noted, a manual differential will be performed. Immature Gran Absolute 0.03 0.00 - 0.04 x10(3)/ L [facility] Blood 03/06/2022 10:1 5 AM EDT 03/06/2022 10:21 AM EDT Narrative Resulting Agency Comment Spec In Lab Maryam MUELLER [place] [address] * (ABNORMAL) Hemogram (03/06/2022 10:15 AM EDT) White Blood Cell 6.4 4.0 - 9.5 x10(3)/mc L [facility] Red Blood Cell 3.07(L) 4.00 - 5.21 x10(6)/mc L [facility] Hemoglobin 10.5(L) 11.7 - 15.5 g/dL [facility] Hematocrit 31.1(L) 35.7 - 45.8 % [facility] Mean Cell Volume 101.3(H) 82.6 - 94.4 fL [facility] Mean Cell Hemoglobin 34.2(H) 27.1 - 32.0 pg [facility] Mean Cell Hemoglobin Concentration 33.8 31.7 - 35.0 g/dL [facility] Platelet 111(L) 145 - 357 x10(3)/ L [facility] RDW Standard Deviation 47.2(H) 37.0 - 46.0 fL [facility] RDW coefficient of variation 12.9 11.5 - 14.1 % [facility] Mean Platelet Volume 11.5 7.6 - 12.9 fL [facility] NRBC% auto 0.0 % [facility] NRBC Absolute 0.000 0.000 - 0.000 x10(3)/mc L [facility] Blood 03/06/2022 10:1 5 AM EDT 03/06/2022 10:21 AM EDT Narrative Resulting Agency Comment Spec In Lab Maryam MUELLER HEMATOLOGY ORDERABL ES [facility] [place] [address] * Phosphorus (03/06/2022 10:15 AM EDT) Phosphorus 3.3 2.5 - 4.5 mg/dL [facility] Blood 03/06/2022 10:1 5 AM EDT 03/06/2022 10:21 AM EDT Narrative Resulting Agency Comment Spec In Lab Shania Will MD CHEMISTRY ORDERABLE S Performing Organization Address City/[facility]/ZIP Co de Phone Number [facility] [place] [address] * Magnesium (03/06/2022 10:15 AM EDT) Magnesium 0.69 0.69 - 1.07 mmol/L [facility] Blood 03/06/2022 10:1 5 AM EDT 03/06/2022 10:21 AM EDT Narrative Resulting Agency Comment Spec In Lab Shania Will MD CHEMISTRY ORDERABLE S Performing Organization Address [facility] Co de Phone Number [facility] [place] [address] * (ABNORMAL) Basic Metabolic Panel (non-fasting) (03/06/2022 10:15 AM EDT) Pathologist [facility] Glucose 155 65 - 199 mg/dL [facility] Comment:Diabetes: >=200 mg/d L plus symptoms Blood Urea Nitrogen 29(H) 8 - 18 mg/dL [facility] Creatinine 1.25(H) 0.70 - 1.20 mg/dL [facility] Sodium 134(L) 135 - 145 mmol/L [facility] Potassium 4.8 3.5 - 5.0 mmol/L [facility] Comment: Please note: ??Patients with WBC >100,000 may have falsely elevated Potassium levels. ??For accurate Potassium quantification in these patients send serum separator tube (gold top) for subsequent determinations. ??Contact the Clinical Chemistry Laboratory if there are any questions. Chloride 101 98 - 107 mmol/L [facility] Carbon Dioxide 23 22 - 31 mmol/L [facility] Anion Gap 10 5 - 15 mmol/L [facility] Calcium 8.9 8.5 - 10.5 mg/dL [facility] Est Glomerular Filtration Rate 45(L) >=60 mL/min/1. 73 m?? [facility] Comment: This patient's estimated GFR [...] [facility] Co de Phone Number [facility] [place] [address] * (ABNORMAL) Differential, Automated (03/06/2022 4:29 AM EDT) Neutrophil % 90.5 % [facility] Neutrophil Absolute 4.47 1.70 - 6.10 x10(3)/mc L [facility] Lymph % 6.9 % [facility] Lymphocytes Abs 0.3(L) 0.9 - 3.2 x10(3)/mc L [facility] Monocyte % 2.2 % [facility] Monocyte Abs 0.1(L) 0.3 - 0.9 x10(3)/mc L [facility] Eos % 0.0 % [facility] Eosinophils Abs 0.0 0.0 - 0.4 x10(3)/mc L [facility] Basophil % 0.2 % [facility] Baso Absolute 0.0 0.0 - 0.1 x10(3)/mc L [facility] Immature Gran % 0.20 % [facility] Comment: Immature granulocytes(IG's)percentage and absolute count will include metamyelocytes, myelocytes, and promyelocytes. Blood smears from CBCs yielding IG's will be scanned manually for concordance. If this scan disagrees with the automated IG or if promyelocytes are noted, a manual differential will be performed. Immature Gran Absolute 0.01 0.00 - 0.04 x10(3)/ L [facility] Blood 03/06/2022 4:29 AM EDT 03/06/2022 4:49 AM EDT Narrative Resulting Agency Comment Spec In Lab Prakash Mendez MD HEMATOLOGY ORDERABLE S [facility] [place] [address] * (ABNORMAL) Hemogram (03/06/2022 4:29 AM EDT) White Blood Cell 4.9 4.0 - 9.5 x10(3)/ L [facility] Red Blood Cell 3.08(L) 4.00 - 5.21 x10(6)/ L [facility] Hemoglobin 10.5(L) 11.7 - 15.5 g/dL [facility] Hematocrit 31.0(L) 35.7 - 45.8 % [facility] Mean Cell Volume 100.6(H) 82.6 - 94.4 fL [facility] Mean Cell Hemoglobin 34.1(H) 27.1 - 32.0 pg [facility] Mean Cell Hemoglobin Concentration 33.9 31.7 - 35.0 g/dL [facility] Platelet 104(L) 145 - 357 x10(3)/ L [facility] RDW Standard Deviation 47.5(H) 37.0 - 46.0 fL [facility] RDW coefficient of variation 12.9 11.5 - 14.1 % [facility] Mean Platelet Volume 11.8 7.6 - 12.9 fL [facility] NRBC% auto 0.0 % [facility] NRBC Absolute 0.000 0.000 - 0.000 x10(3)/mc L [facility] Blood 03/06/2022 4:29 AM EDT 03/06/2022 4:49 AM EDT Narrative Resulting Agency Comment Spec In Lab Prakash Mendez MD HEMATOLOGY ORDERABLE S [facility] [place] [address] * (ABNORMAL) Basic Metabolic Panel (non-fasting) (03/06/2022 4:29 AM EDT) Glucose 140 65 - 199 mg/dL [facility] Comment:Diabetes: >=200 mg/d L plus symptoms Blood Urea Nitrogen 31(H) 8 - 18 mg/dL [facility] Creatinine 1.32(H) 0.70 - 1.20 mg/dL [facility] Sodium 136 135 - 145 mmol/L [facility] Potassium 5.3(H) 3.5 - 5.0 mmol/L [facility] Comment: Please note: ??Patients with WBC >100,000 may have falsely elevated Potassium levels. ??For accurate Potassium quantification in these patients send serum separator tube (gold top) for subsequent determinations. ??Contact the Clinical Chemistry Laboratory if there are any questions. Chloride 103 98 - 107 mmol/L [facility] Carbon Dioxide 23 22 - 31 mmol/L [facility] Anion Gap 10 5 - 15 mmol/L [facility] Calcium 9.0 8.5 - 10.5 mg/dL [facility] Est Glomerular Filtration Rate 42(L) >=60 mL/min/1. 73 m?? [facility] Comment: This patient's estimated GFR [...] Lab Shania Will MD CHEMISTRY ORDERABLE S [facility] [place] [address] * POCT Glucose (03/05/2022 12:18 PM EDT) Glucose, POC 94 65 - 199 mg/dL [facility] Comment: Supplemental ranges: <140 mg/dL before meals <180 mg/dL all other times of the day Blood 03/05/2022 12:1 8 PM EDT 03/05/2022 12:18 PM EDT Shania Will MD POINT OF CARE TEST ORDERABLES Performing Organization Address City/[facility]/ZIP Co de Phone Number [facility] [place] [address] documented in this encounter Visit Diagnoses Diagnosis [...] Unit) documented in this encounter Care Teams Shaker Repairer Relationship Specialty Start Date End Date Ana Her MD Geov[address] [place] [address] PCP - General 07/29/13 documented as of this encounter
--- OUTSIDE RECORDS SUMMARY | 2024-04-25 11:03 | XMS_ITS | Continuity of Care Document ---
[facility] Organization [facility], [facility] [place] [address] Care Team Providers Care Motor Polarizer Name Role Phone GABINODC Melt Room Operator [facility] Orthopedic Surgeon [facility] Sleep Medicine [facility] Stencil Maker Assessment Encounter Date Assessment Date Assessment LastModified by Organization Details LastModified Time 03/04/2024 03/04/2024 The total time devoted to today's encounter, including both the [id number]-zb-[id number] time with the patient and/or family/caregi josefina and tbg-hxnw-ga-f patrick time I personally spent is 44 minutes. Not available 03/04/2024 17:47:18 Plan of Treatment Reminders Order Date Submit Date Provider Last Modified By Organization Details Last Modified Time Details Appointments Follow Up 2024 01:20P Allan Her Not available Not available Not available Lab BMP, serum or plasma 2023 024 [facility] (Registration ), [facility] [facility] [place], [address], 04/19/2024 11:42:49 vitamin D, 25-hydrox y, total, serum 2023 024 [facility] (Registration ), [address] [facility] [place], [address], 04/18/2024 16:09:19 HbA1c (hemoglob in A1c), blood 2023 [facility] (Registration ), [address] [place] [address] [place], [address], 04/19/2024 11:39:49 TSH, serum, reflex free T4 2023 024 [facility] (Registration ), [address] [place] [address] [place], [address], 04/19/2024 11:40:25 CBC 2023 [facility] (Registration ), [address] [place] [address] [place], [address], 04/18/2024 15:08:25 ferritin, serum or plasma 2023 [facility] (Registration ), [address] [place] [address] [place], [address], 04/19/2024 11:41:22 iron + total iron-bind ing capacity (TIBC), serum 2023 [facility] (Registration ), [address] [place] [address] [place], [address], 04/19/2024 11:43:17 Referral None recorded. Procedures None recorded. Surgeries None recorded. Imaging None recorded. Medication Orders hydromorp ricky 2 mg tablet 2023 024 [facility], [address] [place], [address], 03/04/2024 15:12:30 levothyro xine 75 mcg tablet 2023 024 [email or web address], [address] [place], [address], 03/04/2024 16:32:19 Patient TargetsNo targets recorded. Patient InstructionsNo instructions recorded. 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 None Reported. Problems Name Problem SNOMED Code Status Onset Date Resolution Date Notes Provider Name and Address Organization Details Recorded Time Osteopor otic fracture Active 2023 Zoledron ate started at time of humeral fracture 2023- MD [address], [place], [address] , [facility] 4 17:34:10 Hypothyr oidism 74717894 Active 1959 EVIE shaw, [facility] 4 10:29:59 Essentia l hyperten jason 92794207 Active 1959 EVIE shaw, [facility] 4 10:29:36 Hyperlip idemia 03155492 Active 1959 on statin MD [address], [place], [address] , [facility] 4 20:35:18 Spinal stenosis of lumbar region 56711211 Active 2012 s/p lumbar foramino parish L4 MD [address], [place], [address] , [facility] 4 20:36:41 Sleep apnea 98388811 Active 2012 on CPAP MD [address], [place], [address] , [facility] 4 20:39:31 Gastroes ophageal reflux disease without esophagi tis 933871819 Completed 195908/12/2023 Removal Reason: resolved with surgical repair of HH MD [address], [place], [address] , [facility] 4 10:41:24 Family history of malignan t neoplasm of digestiv e organ 412696612 Active [address], [place], [address] , [facility] 4 20:37:03 Paresthe samir 05521863 Completed 201412/01/2014 11/28/19 15 - Comments only - Ana Her MD - check B12 and folate Problem Code: R20.2; Problem Code Type: ICD-10; Not Available [facility] 3 05:53:48 Adult health examinat ion Active [address], [place], [address] , [facility] 4 20:33:34 Pre-surg ruben evaluati [...] Z01.818; Problem Code Type: ICD-10; Not Available [facility] 3 05:53:48 Localize d edema 949116275 Completed 201501/29/2016 12/13/19 16 - Comments only - Ana Her MD - and some on left as well, will check BMP. 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 Nusrat esparza for removal. Problem Code: L72.3; Problem Code Type: ICD-10; Not Available [facility] 3 05:53:49 Chronic ulcer of foot 692902871 Completed 201601/16/2017 12/18/19 17 - Comments only - Ana Her MD - Due to injury. This does appear to have some granulat ion tissue and to be healing. She is given a prescrip tion for Keflex to take only if erythema seems to be extendin g. Problem Code: L97.509; Problem Code Type: ICD-10; Not Available [facility] 3 05:53:49 Diarrhea 68391785 Completed 201602/10/2017 02/05/20 17 - Comments only - Ana Her MD - Persiste nt over several months, we will collect stool for C. difficil e, Giardia, culture, and lactofer rin Problem Code: R19.7; Problem Code Type: ICD-10; MD [address], [place], [address] , [facility] 4 21:03:03 Polyp of cervix 03878018 Active 2016 EVIE shaw, [place] [facility]. 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 6 mm PT1NO E2P2 poistive , HER2 negative MD [address], [place], [address] , [facility] 4 20:38:49 Pain in left lower limb 047506193 Active 2016 EVIE shaw, [facility]. 4 10:32:00 Pain in thoracic spine 374625407 Active 2016 EVIE shaw, [facility]. 4 10:32:06 [facility] 85466014 [facility] 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 4 14:36:02 Tachycar lea 0847885 Completed 201811/25/2018 Problem Code: R00.0; Problem Code Type: ICD-10; Not Available [facility] 3 05:53:51 Pre-surg ruben evaluati on Completed 201811/25/2018 Problem Code: Z01.818; Problem Code Type: ICD-10; Not Available [facility] 3 05:53:51 Iron deficien cy anemia 13882359 Active 2019 elevated MCV: normal B12 2021, normal folate 2018 IV iron 2023 EGD 01/2022 paraesop hageal hernia (since repaired ) colo 03/2017 normal ANA HER MD [address], [place], [address] , [facility] 4 11:44:45 Lumbago with sciatica 050449297 Completed 201903/16/2020 02/24/20 20 - Comments only - Vy Pinon SECTION REPAIRER - Likely aggravat ed by increase d [...] M54.40; Problem Code Type: ICD-10; Not Available [facility] 3 05:53:52 Right side sciatica 96221633602 9101 Active 2019 EVIE shaw, [facility] 4 10:33:09 Left side sciatica 02246444935 9104 Active [address], [place], [address] , [facility] 4 17:20:20 Diaphrag matic hernia 85034652 Completed 202108/11/2023 Removal Reason: s/p repair MD [address], [place], [address] , [facility] 4 20:50:39 History of SARS-CoV -2 06220331685 9205698 Completed 202104/04/2022 03/21/20 22 - Comments only - Ana Her MD - testing is negative today in the office. Still some fatigue but otherwis e recoveri ng. Did get MAB. Already had covid bivalent booster prior to illness Problem Code: Z86.16; Problem Code Type: ICD-10; Not Available [facility] 3 05:53:53 Diarrhea 38381762 Completed 202104/18/2022 Problem Code: R19.7; Problem Code Type: ICD-10; MD [address], [place] [address] , [facility] 4 21:03:02 Screenin g mammogra phy Completed 202208/11/[address], [place] [address] , [facility] 4 20:36:56 Carpal tunnel syndrome of left wrist 96068547878 9102 Completed 202201/23/2023 Problem Code: G56.02; Problem Code Type: ICD-10; Not Available [facility] 4 05:37:46 Diarrhea 31488441 Active 2022 started colestip ol 01/[address], [place] [address] , [facility] 4 21:03:02 Carpal tunnel syndrome of right wrist 35748958672 9108 Completed 201803/19/2020 Problem Code: G56.01; Problem Code Type: ICD-10; Not Available [facility] 3 05:53:55 Pain of left knee joint 08563925027 4107 Completed 202107/30/2022 Problem Code: M25.562; Problem Code Type: ICD-10; Not Available [facility] 3 05:53:55 Hypersom korina 73994750 Completed 201311/27/2014 Problem Code: 780.54; Problem Code Type: ICD-9; Not Available [facility] 3 05:53:56 Screenin g for disorder Completed 201909/11/2021 Problem Code: Z13.9; Problem Code Type: ICD-10; Not Available [facility] 3 05:53:56 Anemia 300023664 Completed 201903/19/2020 Problem Code: D64.9; Problem Code Type: ICD-10; Not Available [facility] 3 05:53:56 Long-ter m current use of anticoag ulant 924143192 Completed 201709/01/2018 Problem Code: Z79.01; Problem Code Type: ICD-10; Not Available [facility] 3 05:53:57 Chronic rhinitis 62807295 Completed 202108/12/2021 Problem Code: J31.0; Problem Code Type: ICD-10; Not Available [facility] 3 05:53:57 Impaired fasting glycemia 608402348 Completed 201401/28/2023 Not Available [facility] 3 05:53:57 Fatigue 43190593 Completed 201903/19/2020 Problem Code: R53.83; Problem Code Type: ICD-10; Not Available [facility] 3 05:53:58 Upper respirat ory tract infectio n caused by Influenz a A 68655117065 9104 Completed 201707/02/2017 Problem Code: J09.x2; Problem Code Type: ICD-10; Not Available [facility] 3 05:53:59 Diarrhea 44607840 Completed 201709/01/2018 ANA HER MD [address], [place], [address] , [facility]. 4 21:03:02 Acute upper respirat ory infectio n 37641433 Completed 202108/26/2021 Problem Code: J06.9; Problem Code Type: ICD-10; Not Available [facility] 3 05:53:59 Pain in right foot 89663254389 9107 Completed 202207/30/2022 Problem Code: M79.671; Problem Code Type: ICD-10; Not Available [facility] 3 05:54:00 Breast composit ion 020303450 Completed 201601/28/2023 Not Available [facility] 3 05:54:00 Changes in skin texture 319057428 Completed 202207/30/2022 Problem Code: R23.4; Problem Code Type: ICD-10; Not Available [facility] 3 05:54:01 Spasm 05012675 Completed 201603/23/2017 Problem Code: R25.2; Problem Code Type: ICD-10; EVIE RUFUS [facility], [facility] 4 10:33:28 Hyperten sive disorder 60956682 Completed 11/28/19 15 - Comments only - Ana Her MD - [facility] ed, no change in medicati ons Not Available [facility] 3 05:54:03 Arthralg ia of the ankle and/or foot 986290181 Completed 201501/30/2016 Problem Code: M25.571; Problem Code Type: ICD-10; Not Available [facility] 3 05:54:03 Dyspnea 610655929 Completed 201903/19/2020 Problem Code: R06.02; Problem Code Type: ICD-10; Danica Felix colin, [facility] 4 14:39:47 Trigger finger of right hand 12505447752 237195 Completed 201803/19/2020 Problem Code: M65.341; Problem Code Type: ICD-10; Not Available [facility] 3 05:54:06 Cough 33478285 Completed 202108/12/2021 Problem Code: R05.1; Problem Code Type: ICD-10; Not Available [facility] 3 05:54:06 At risk - finding 594116422 Completed 201811/11/2018 Problem Code: Z91.89; Problem Code Type: ICD-10; Not Available [facility] 3 05:54:06 Cough 46370434 Completed 201706/15/2017 Problem Code: R05; Problem Code Type: ICD-10; Not Available [facility] 3 05:54:07 Preopera tive cardiova scular examinat ion Completed 202112/18/2021 Problem Code: Z01.810; Problem Code Type: ICD-10; Not Available [facility] 3 05:54:08 Arterial bruit 32934552 Completed 202109/11/2021 Not Available [facility] 3 05:54:08 Gastroes ophageal reflux disease 017262768 Completed Not Available [facility] 3 05:54:09 Imaging of musculos keletal system abnormal 844733421 Completed 201603/23/2017 Problem Code: R93.7; Problem Code Type: ICD-10; Not Available [facility] 3 05:54:10 Blood glucose outside referenc e range 870138824 Completed 201503/20/2016 Problem Code: R73.09; Problem Code Type: ICD-10; Not Available [facility] 3 05:54:10 Abdomina l aortic aneurysm 068984729 Completed 195912/04/2014 Not Available [facility] 3 05:54:11 Lung field abnormal 534247020 Completed 202109/11/2021 Problem Code: R91.8; Problem Code Type: ICD-10; Not Available [facility] 3 05:54:11 Ingrowin g nail 314039321 Completed 201503/23/2017 Problem Code: L60.0; Problem Code Type: ICD-10; Not Available [facility] 3 05:54:11 Hypokale karyn 70671767 Completed 201504/17/2016 Problem Code: E87.6; Problem Code Type: ICD-10; Not Available [facility] 3 05:54:12 Spasm 02017577 Completed 202201/23/2023 Problem Code: M62.838; Problem Code Type: ICD-10; EVIE shaw [facility] 4 10:33:28 Aneurysm of ascendin g aorta 208281198 Active [address], [place] [address] , [facility] 4 19:24:51 Bicuspid aortic valve 37945612 Active 2023 severe by ECHO 07/[address], [place] [address] , [facility] 4 19:33:10 Osteopen ia 136172205 Active 2023 EVIE shaw, [facility] 4 10:28:13 Venous stasis 32395911 Active 2023 EVIE shaw, [facility] 4 10:29:14 Chronic kidney disease 183415794 Active 2017 Stage 3bA1v eGFR 42-[address], [place] [address] , [facility] 4 20:49:29 Dyspnea on exertion 92247582 Active 2018 Danica shaw, [facility] 4 14:39:44 Hiatal hernia 52218962 Completed 202108/11/2023 lap repair MD [address], [facility] [address] , [facility] 4 20:51:15 Edema of lower extremit y 452442384 Active [address], [facility] [address] , [facility] 4 20:55:49 Atrial fibrilla tion 49331125 Active 2016 s/p pulmonoa ry vein isolatio n 05/2018, chronic anticoag ulation with Xarelto MD [address], [address] [place] [address] 4 09:14:08 Obesity 564518483 Active [address], [address] 4 09:26:22 Cardiac pacemake r in situ 094540834 Active 2023 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 MD [address], [address] 4 09:13:49 Swelling of bilatera l lower limbs 253255582 Active [address], [address] 14:35:13 Problem Notes None recorded. Procedures Surgical History Date Name Laterality Status Provider Name and Address Organization Details Recorded Time 10/26/19 cardiac pacemaker procedure completed MD [address], [address] 03/16/2024 16:33:27 10/20/19 24 transcatheter aortic valve implantation completed MD [address], [address] 03/16/2024 16:32:53 Imaging Results None recorded. Procedure Notes None recorded. Medical Equipment None Reported. Allergies Allergen ID Allergen Name Allergen Category Reaction Reaction Severity Criticality Documentation Date Start Date Code Code System Note Provider Name and Address Organization Details Recorded Time 39782 amlodipin e medicatio n swelling severe high 11/18/2023 16834 RxNorm Shnaeka Herrera MA null, [facility] 13:47:28 Medications Name Sig [...] tab by mouth daily 06/02 completed [employer] Not Available Not Available Not Available [...] 1 tab by mouth daily 2013 active [employer] Not Available Not Available Not Available gabapenti n 100 mg capsule Take 1 cap by mouth three times daily 2015 active Not Available Not Available Not Avai lable metoprolo l succinate ER 25 mg tablet,ex tended release 24 hr Take 1 tab by mouth daily 2017 active [employer] Not Available Not Available Not Available [...] . Not Available Not Available Not Available LoladexToSimpliVity Verio Flex Meter 02/22 completed Tiki gave [...] Last Updated DateTime 164.34 cm 29.1 kg/m2 36200.4 8 g 97.7 [degF] 96 % 96 % 104 /min 18 /min 120 mm[Hg] 74 mm[Hg] KRYSTAL SKELTON LPN [facility] 14:18:40 Social History Question Answer Notes LastModified by Organizat ion Details LastModified Time Tobacco Smoking Status Never Smoker KRYSTAL SKELTON LPN [facility] 08/12/2023 07:44:55 Date Of Most Recent [...] And Wanted Help? (For Example, If You [place] Very Nervous, Lonely, Or Blue; Got Sick [...] Details Recorded Time Pneumococcal conjugate PCV20, polysaccharide [id number] conjugate, adjuvant, PF 4 completed MD [address], [address] 08/12/2023 11:52:18 COVID-19, mRNA, LNP-S, PF, vanda-sucrose, 30 mcg/0.3 mL 4 completed MD [address], [address] 08/12/2023 11:52:18 COVID-19, mRNA, LNP-S, PF, vanda-sucrose, 30 mcg/0.3 mL 4 completed MD [address], [address] 03/04/2024 15:04:49 Tdap 1 completed Not Available [facility] 03/13/2023 06:18:37 Tdap 1 completed Not Available [facility] 03/13/2023 06:18:37 zoster live 5 completed Not Available [facility] 03/13/2023 06:18:37 Influenza, high-dose, trivalent, PF 8 completed Not Available [facility] 03/13/2023 06:18:38 Influenza, split virus, trivalent, preservative 6 completed Not Available [facility] 03/13/2023 06:18:38 Pneumococcal Conjugate, unspecified formulation 5 completed Not Available [facility] 03/13/2023 06:18:38 Influenza, split virus, quadrivalent, preservative 7 completed Not Available [facility] 03/13/2023 06:18:38 Influenza, high-dose, quadrivalent, PF 2 completed Not Available [facility] 03/13/2023 06:18:38 Influenza, high-dose, quadrivalent, PF 1 completed Not Available [facility] 03/13/2023 06:18:38 Influenza, high-dose, quadrivalent, PF 0 completed Not Available [facility] 03/13/2023 06:18:38 COVID-19, mRNA, LNP-S, PF, 100 mcg/0.5mL dose or 50 mcg/0.25mL dose 1 completed Not Available [facility] 03/13/2023 06:18:38 COVID-19, mRNA, LNP-S, PF, 100 mcg/0.5mL dose or 50 mcg/0.25mL dose 1 completed Not Available [facility] 03/13/2023 06:18:39 COVID-19, mRNA, LNP-S, PF, 100 mcg/0.5mL dose or 50 mcg/0.25mL dose 1 completed Not Available [facility] 03/13/2023 06:18:39 COVID-19, mRNA, LNP-S, bivalent, PF, 30 mcg/0.3 mL dose 2 completed Not Available [facility] 03/13/2023 06:18:39 pneumococcal polysaccharide PPV23 1 completed Not Available [facility] 03/13/2023 06:18:39 influenza, unspecified formulation 6 completed Not Available [facility] 03/13/2023 06:18:39 influenza, unspecified formulation 4 completed Not Available [facility] 03/13/2023 06:18:39 Influenza, high-dose, quadrivalent, PF 3 completed Not Available [facility] 05/15/2023 05:33:16 Past Encounters Encounter ID Performer Location Encounter Start Date Encounter Closed Date Diagnosis/Indication Diagnosis SNOMED-CT Code Diagnosis ICD10 Code [id number] ANA HER MD [place] [address] [place] [address] 03/04/2024 14:02:04 03/04/2024 15:12:46 Active or passive immunization 127555475 Z23 Hypothyroidism 00162659 E03.9 Osteoporotic fracture 46 502778 M80.00XD Iron defic iency anemia 03822228 D50.9 Chronic ki dney disease 135676378 N18.9 Prediabetes 810089409 R7 3.03 Health Concerns Section Related Observation LastModified by Organization Detai ls LastModified Time None Recorded Concern Status LastModified by Organization Details LastModified Time None Recorded Payers Encounter Date Sequence Insurance Name Policy Number Policy Palacio Covered Member ID Palacio Member ID Guarantor Name 03/04/2024 1 [place] [id number] Digna Olson [id number] Digna Christiansens[employer]orro 03/04/2024 2 [place] [facility] [id number] Digna Christiansensocorro [id number] Digna Lemus Whitney Notes Date Note Type Note Provider Name and Address Organization Details Recorded Time 03/04/2024 text/html Pt was admitted to [facility] 12/10-12/16 with fall and humeral fracture. [...] TAVR. ANA HER MD [address], [place], [address], [facility]. 03/04/2024 17:49:41 OBGyn Episode No OBEpisode recorded.
--- OUTSIDE RECORDS SUMMARY | 2024-04-25 11:03 | XMS_ITS | Encounter Summary ---
[place] [address] Care Team Providers Care Shear Helper Name Role Phone Ana Her MD Primary Care Provider [phone] Encounter Details Date Type Department Care Team (Late st Contact Info) Description 12/17/2021 Telephone [place] [id number] Roma Estrada RN Social History Tobacco Use [...] on filedocumented in this encounter Care Teams Shear Helper Relationship Specialty Start Date End Date Ana Her MD [address] [place] [address] PCP - General 07/29/13 documented as of this encounter
--- OUTSIDE RECORDS SUMMARY | 2024-04-25 11:03 | XMS_ITS | Encounter Summary ---
[place] [address] Care Team Providers Care Gasket Notcher Name Role Phone Ana Her MD Primary Care Provider [phone] Encounter Details Date Type Department Care Team (Late st Contact Info) Description 01/08/2022 7:30 AM EDT - 01/08/2022 8:40 AM EDT Surgery Main [place] [phone] Laura Park MD [facility] [place] [address] EGD, UPPER GI ENDOSCOPY (WRVU 2.09) Social [...] a nurse in the Thoracic Clinic at [phone]. After hours or on weekends or holidays please call: [phone] and ask to speak to the Thoracic Physician supervisor concrete stone finishing. Diet: You should follow a clear liquid [...] - 5pm): General Surgery and Bariatric Surgery [phone] Bariatric Surgeons: Drs. Park and John [phone] Hr Receptionist: [phone] Dietitians: [phone] Outside of regular business hours, including weekends and holidays: Ask for General Surgery resident supervisor concrete stone finishing [phone] Please note, this call will be answered [...] of left breast of female, estrogen receptor fgaquyjbL32.512, Z17.0 ??? Anemia D64.9 ??? Aortic valve [...] 6.43) performed by Malika Chen MD at [facility] MAIN OR ??? PRO INTRAOP SENTINEL LYMPH ID W/DYE INJECTION Left 03/30/2017 ?? INTRAOPERATIVE ID (MAPPING) SENTINEL LYMPH NODE,INCLUDES INJECTION (WRVU 2.5) performed by Malika Chen MD at [facility] MAIN OR ??? PRO MASTECTOMY PARTIAL Left 03/30/2017 ?? MASTECTOMY PARTIAL (WRVU 10.13) performed by Malika Chen MD at [facility] MAIN OR ?? Cholecystectomy ?? [...] Park MD - 01/08/2022 7:48 AM EDT [facility] Operative Note Patient Name: Digna Olson : [id number] MR#: [id number] Case Date: 01/08/2022 Surgeon: Surgeon(s) and Role: [...] Info Order Time SPECIMEN TO PATHOLOGY Gastric Cidra for H Pylori Hiatal hernia Gastric Cidra for H Pylori excision 01/08/2022 8:15 AM [...] 8:14 AM EDT Upper GI Endoscopy, Diagnostic ([id number]) Yes 01/08/2022 7:40 AM EDT Hiatal hernia POCT GLUCOSE Routine 01/08/2022 6:33 AM EDT documented in this encounter Results * Specimen to Pathology (01/08/2022 8:15 AM EDT) AP Specimen 01/08/2022 8:15 AM EDT 01/08/2022 8:15 AM EDT Narrative [facility] - 01/08/2022 8:15 AM EDT Specimen requisition ordered. ??Separate Pathology report to follow Laura Park MD PATHOLOGY/CYTOLOGY ORDERABLES [facility] [place] [address] * Surgical Pathology Report (01/08/2022 8:14 AM EDT) Final Diagnosis [id number] ? Location: SDP; SD36; A The signing pathologist has (i) examined the relevant preparation(s) for the specimen(s) and (ii) rendered or confirmed the diagnosis(es). . ?Surgical Pathology DIAGNOSIS A - Gastric ??Antrum for H Pylori, excision: - ??Antrum-type mucosa with reactive gastropathy. Electronically signed by: ?Umang Raymundo MD Verified: ??01/09/2022 16:36 ??Pathologist Performed at: ??-[facility] Dept. of Pathology, [place], [place] SPECIMEN(S) SUBMITTED A - Gastric ??Antrum for H Pylori, excision (1) CLINICAL INFORMATION Hiatal hernia SPECIMEN PROCESSING A - Labeled/Fixativ e: Gastric antrum for H. pylori, formalin. Quantity/Size: Single, 0.3 cm. Tissue Description: Soft, pink tissue. Sections/Proces sing: Submitted en toto ??in 1 cassette labeled A1. ??sns 01/09/2022 4:36 PM EDT [facility] GI Biopsy 01/08/2022 8:14 AM EDT 01/08/2022 8:14 AM EDT Laura Park MD PATHOLOGY/CYTOLOGY ORDERABLES Performing Organization Address City/State/[facility] Co de Phone Number [facility] [place] [address] * POCT Glucose (01/08/2022 6:33 AM EDT) Glucose, POC 120 65 - 199 mg/dL [facility] Comment: Supplemental ranges: <140 mg/dL before meals <180 mg/dL all other times of the day Blood 01/08/2022 6:33 AM EDT 01/08/2022 6:33 AM EDT Laura Park MD POINT OF CARE [place] [address] documented in this encounter Visit Diagnoses Not on filedocumented in this encounter Active and Recently Administered Medications Care Teams Gasket Notcher Relationship Specialty Start Date End Date Ana Her MD [address] [facility] 1 [place] [address] PCP - General 07/29/13 documented as of this encounter
--- OUTSIDE RECORDS SUMMARY | 2024-04-25 11:03 | XMS_ITS | Encounter Summary ---
[place] [address] Care Team Providers Care Hand Ii Blocker Name Role Phone Ana Her MD Primary Care Provider [phone] Encounter Details Date Type Department Care Team (Late st Contact Info) Description 02/03/2023 Telephone [place] [address] Maryam Barrett Social History Tobacco Use Types [...] after last visit (Jun 2021 w Laura Jaoquin) and doesn't wish to follow up further. I let her know I would reach out to the team and we would call if we object documented in this encounter Plan of Treatment Not on file documented as of this encounter Visit Diagnoses Not on filedocumented in this encounter Care Teams Hand Ii Blocker Relationship Specialty Start Date End Date Ana Her MD [address] [place] [address] PCP - General 07/29/13 documented as of this encounter
--- OUTSIDE RECORDS SUMMARY | 2024-04-25 11:03 | XMS_ITS | Encounter Summary ---
Author Organization [facility] [place] [address] Care Team Providers Care Pig Breeder Name Role Phone Ana Her MD Primary Care Provider [phone] Encounter Details Date Type Department Care Team (Latest Contact Info) Description 04/03/2022 12:00 PM EST TH Visit (TeleHealth) [place] [address] Laura Will MD [facility] [place] [address] Status post repair of paraesophageal diaphragmatic hernia [...] status documented in this encounter Care Teams Pig Breeder Relationship Specialty Start Date End Date Ana Her MD [facility] [address] [place] [address] PCP - General 07/29/13 documented as of this encounter
--- OUTSIDE RECORDS SUMMARY | 2024-04-25 11:03 | XMS_ITS | Encounter Summary ---
Author Organization [facility] [place] [address] Care Team Providers Care Tank Setter Name Role Phone Ana Her MD Primary Care Provider [phone] Encounter Details Date Type Department Care Team (Late st Contact Info) Description 03/10/2022 1:35 AM EST Ancillary Procedure Radiology Library at [facility] [place] [address] Ana Her MD [address] [place] [address] [facility] 1 [place], [place] [id number] Social History Tobacco Use Types Packs/Day Years [...] CT Chest (03/10/2022 1:31 AM EST) Narrative [facility] - 03/10/2022 1:31 AM EST This exam is auto-finalizing. It's purpose is for storage only. Ana Her MD IM FILM LIBRARY ORD ERABLES [place], [place] documented in this encounter Visit Diagnoses Not on filedocumented in this encounter Care Teams Tank Setter Relationship Specialty Start Date End Date Ana Her MD [facility] [address] [facility] 1 [place] [address] PCP - General 07/29/13 documented as of this encounter
--- OUTSIDE RECORDS SUMMARY | 2024-04-25 11:03 | XMS_ITS | Encounter Summary ---
[place] [address] Care Team Providers Care Compressor Mechanic Bus Name Role Phone Ana Her MD Primary Care Provider [phone] Reason for Visit * Auth/Cert Specialty Diagnoses / Procedures Referred By Christiano hackett Referred To Contact Diagnoses S/P repair of paraesophageal hernia Post-Op monitoring Procedures PRO LAPARSCOPY REPAIR PARAESOPHAGEAL HERNIA INCL FUNDOPLASTY W/O MESH LAPAROSCOPIC PARAESOPHAGEAL HERNIA REPAIR W/FUNDOPLASTY, W/O MESH (WRVU 26.6) MODIFIER TOUPET FUNDOPLASTY Laura Will MD [facility] [place] [address] [facility] Referral ID Status Reason Start Date Expiration Date Visits Re quested Visits Authorized [id number] 1 1 Encounter Details Date Type Department Care Team (Late st Contact Info) Description 03/05/2022 1:58 PM EDT Anesthesia [place] [id number] Alisa Naqvi MD [facility] [place] [address] Alessia Ramirez [place] [address] Anesthesia Record Procedure Summary Procedure Name Responsible [...] Procedure Summary Date: 03/05/22 Room / Location: [address] MAIN OR Anesthesia Start: 8 Anesthesia Stop: 1823 Procedures: LAPAROSCOPIC PARAESOPHAGEAL HERNIA REPAIR W/FUNDOPLASTY, W/O MESH (WRVU 26.6) (N/A Abdomen) MODIFIER TOUPET FUNDOPLASTY (N/A Abdomen) Diagnosis: (Paraesophageal Hernia) Surgeons: Laura Will MD Responsible Provider: Alisa Naqvi MD Anesthesia Type: general ASA Status: 3 All Anesthesia Providers: Anesthesiologist: Brayan Hubbard MD; Alisa Naqvi MD; Dario Franco MD Bowling Ball Marker: Mo Vance DO Vitals Value Taken Time BP 125/75 03/05/22 1821 Temp Pulse 77 03/05/22 1823 Resp 18 03/05/22 1823 SpO2 100 % 03/05/22 182 Pain Level Vitals shown include unvalidated device data. Patient Location: PACU/[facility] Level of Consciousness: Awake and Alert [...] of left breast of female, estrogen receptor ebbzgqcu41/25/2017 ??? Bicuspid aortic valve 06/10/2016 ??? Dyspnea [...] 6.43) performed by Malika Chen MD at [facility] MAIN OR ??? PRO INTRAOP SENTINEL LYMPH ID W/DYE INJECTION Left 03/30/2017 INTRAOPERATIVE ID (MAPPING) SENTINEL LYMPH NODE,INCLUDES INJECTION (WRVU 2.5) performed by Malika Chen MD at [facility] MAIN OR ??? PRO MASTECTOMY PARTIAL Left 03/30/2017 MASTECTOMY PARTIAL (WRVU 10.13) performed by Malika Chen MD at [facility] MAIN OR ??? PRO UPPER GI ENDOSCOPY, DIAGNOSTIC N/A 01/08/2022 EGD, UPPER GI ENDOSCOPY performed by Laura Will MD at [facility] MAIN OR Social History Tobacco Use [...] sneeze Cardiac Hx: Exercise stress test 10/07/21 [facility]: Resting electrocardiogram showed atrial fibrillation, right BBB, left anterior fascicular block. Patient achieved 4.64METS, achieved 93% of predicted HR for age. Electrocardiographic portion of test negative for ischemia. MPI negative for ischemia or infarction. EF 45%. Wall motion normal. ?? Echo 06/19/21 ([facility]): normal biventricular size and function, symmetric [...] PONV ppx Mo Shreyas DO Pinky 03/04/2022 Infant Childcare Provider Pager #[phone] Region - Other Informed Consent: Anesthetic plan [...] GERD (omeprazole) ?? Exercise stress test 10/07/21 [facility]: Resting electrocardiogram showed atrial fibrillation, right BBB, left anterior fascicular block. Patient achieved 4.64METS, achieved 93% of predicted HR for age. Electrocardiographic portion of test negative for ischemia. MPI negative for ischemia or infarction. EF 45%. Wall motion normal. ?? Echo 06/19/21 ([facility]): normal biventricular size and function, [...] 1 view ?? Followed by cardiology at [facility], notes under Care Everywhere. Last seen [...] mg documented in this encounter Care Teams Compressor Mechanic Bus Relationship Specialty Start Date End Date Ana Her MD [address] [facility] 1 [place] [address] PCP - General 07/29/13 documented as of this encounter
--- OUTSIDE RECORDS SUMMARY | 2024-04-25 11:03 | XMS_ITS | Encounter Summary ---
Author Organization [facility] [place] [address] Care Team Providers Care Seat Coverer Name Role Phone Ana Her MD Primary Care Provider [phone] Encounter Details Date Type Department Care Team (Latest Contact Info) Description 01/23/2022 12:15 PM EDT TH Visit (TeleHealth) [place] [address] Laura Will MD [facility] [place] [address] Paraesophageal hernia Social History Tobacco Use Types [...] her. She is followed by cardiology at [facility], and is on xarelto. Impression: Symptomatic paraesophageal [...] gangrene documented in this encounter Care Teams Seat Coverer Relationship Specialty Start Date End Date Ana Her MD [address] [facility] 1 [place] [address] PCP - General 07/29/13 documented as of this encounter
--- OUTSIDE RECORDS SUMMARY | 2024-04-25 11:03 | XMS_ITS | Encounter Summary ---
[place] [address] Care Team Providers Care Digital Strategy Director Name Role Phone Ana Her MD Primary Care Provider [phone] Encounter Details Date Type Department Care Team (Late st Contact Info) Description 02/26/2022 Orders [place] [address] Alicia Manning RN Social History Tobacco Use [...] on filedocumented in this encounter Care Teams Digital Strategy Director Relationship Specialty Start Date End Date Ana Her MD [address] [place] [address] PCP - General 07/29/13 documented as of this encounter
--- OUTSIDE RECORDS SUMMARY | 2024-04-25 11:03 | XMS_ITS | Encounter Summary ---
[place] [address] Care Team Providers Care C Iron Worker Name Role Phone Ana Her MD Primary Care Provider [phone] 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 * Consultation (Routine) - Closed Specialty Diagnoses / Procedures Referred By Christiano hackett Referred To Contact General Surgery Diagnoses Hiatal hernia Ana Her MD [address] [place] [address] [facility] Gen Surgery [address] [place] [phone] Referral ID Status Reason Start Date Expiration Date V isits Requested Visits Authorized [id number] Closed Consult, Test & Treat 09/23/2021 09/23/2022 6 6 Encounter Details Date Type Department Care Team (Late st Contact Info) Description 09/23/2021 Transcribe Orders eDH Incoming Referrals [phone] Ana Her MD [address] [place] [address] Hiatal hernia Social History Tobacco [...] gangrene documented in this encounter Care Teams C Iron Worker Relationship Specialty Start Date End Date Ana Her MD [address] [place] [address] PCP - General 07/29/13 documented as of this encounter
--- OUTSIDE RECORDS SUMMARY | 2024-04-25 11:03 | XMS_ITS | Encounter Summary ---
[place] [address] Care Team Providers Care Sign Painter Helper Name Role Phone Ana Her MD Primary Care Provider [phone] Encounter Details Date Type Department Care Team (Late st Contact Info) Description 02/04/2022 12:00 PM EDT Notes [place] [address] Social History Tobacco Use Types Packs/Day Years [...] on filedocumented in this encounter Care Teams Sign Painter Helper Relationship Specialty Start Date End Date Ana Her MD [address] [place] [address] PCP - General 07/29/13 documented as of this encounter
--- OUTSIDE RECORDS SUMMARY | 2024-04-25 11:03 | XMS_ITS | Encounter Summary ---
[place] [address] Care Team Providers Care Airborne And Air Delivery Specialist Name Role Phone Ana Her MD Primary Care Provider [phone] Encounter Details Date Type Department Care Team (Late st Contact Info) Description 12/24/2021 Telephone [place] [address] Chelsie Lauren Social History Tobacco Use Types [...] on filedocumented in this encounter Care Teams Airborne And Air Delivery Specialist Relationship Specialty Start Date End Date Ana Her MD [address] [place] [address] PCP - General 07/29/13 documented as of this encounter
--- OUTSIDE RECORDS SUMMARY | 2024-04-25 11:03 | XMS_ITS | Encounter Summary ---
Author Organization [facility] [place] [address] Care Team Providers Care Painter Spray Name Role Phone Ana Her MD Primary Care Provider [phone] Encounter Details Date Type Department Care Team (Latest Contact Info) Description 01/08/2022 6:11 AM EDT - 01/08/2022 9:40 AM EDT Hospital Encounter [place] [address] Laura Park MD [facility] [place] [address] Discharge Disposition: Home Social History Tobacco Use [...] a nurse in the Thoracic Clinic at [phone]. After hours or on weekends or holidays please call: [phone] and ask to speak to the Thoracic Physician electronic assembler group leader. Diet: You should follow a clear liquid [...] - 5pm): General Surgery and Bariatric Surgery [phone] Bariatric Surgeons: Drs. Park and John [phone] Stereotyper Helper: [phone] Dietitians: [phone] Outside of regular business hours, including weekends and holidays: Ask for General Surgery resident electronic assembler group leader [phone] Please note, this call will be answered [...] of left breast of female, estrogen receptor esfaooymM09.512, Z17.0 ??? Anemia D64.9 ??? Aortic valve [...] 6.43) performed by Malika Chen MD at [facility] MAIN OR ??? PRO INTRAOP SENTINEL LYMPH ID W/DYE INJECTION Left 03/30/2017 ?? INTRAOPERATIVE ID (MAPPING) SENTINEL LYMPH NODE,INCLUDES INJECTION (WRVU 2.5) performed by Malika Chen MD at [facility] MAIN OR ??? PRO MASTECTOMY PARTIAL Left 03/30/2017 ?? MASTECTOMY PARTIAL (WRVU 10.13) performed by Malika Chen MD at [facility] MAIN OR ?? Cholecystectomy ?? Medications: ?? [...] Park MD - 01/08/2022 7:48 AM EDT [facility] Operative Note Patient Name: Digna Olson : [id number] MR#: [id number] Case Date: 01/08/2022 Surgeon: Surgeon(s) and Role: [...] Info Order Time SPECIMEN TO PATHOLOGY Gastric Williamson for H Pylori Hiatal hernia Gastric Williamson for H Pylori excision 01/08/2022 8:15 AM [...] 8:14 AM EDT Upper GI Endoscopy, Diagnostic ([id number]) Yes 01/08/2022 7:40 AM EDT Hiatal hernia POCT GLUCOSE Routine 01/08/2022 6:33 AM EDT documented in this encounter Results * Specimen to Pathology (01/08/2022 8:15 AM EDT) AP Specimen 01/08/2022 8:15 AM EDT 01/08/2022 8:15 AM EDT Narrative [facility] - 01/08/2022 8:15 AM EDT Specimen requisition ordered. ??Separate Pathology report to follow Laura Park MD PATHOLOGY/CYTOLOGY ORDERABLES [facility] [place] [address] * Surgical Pathology Report (01/08/2022 8:14 AM EDT) Final Diagnosis [id number] ? Location: [facility]; [facility]; A The signing pathologist has (i) examined the relevant preparation(s) for the specimen(s) and (ii) rendered or confirmed the diagnosis(es). . ?Surgical Pathology DIAGNOSIS A - Gastric ??Antrum for H Pylori, excision: - ??Antrum-type mucosa with reactive gastropathy. Electronically signed by: ?Umang Raymundo MD Verified: ??01/09/2022 16:36 ??Pathologist Performed at: ??-[facility] Dept. of Pathology, [place], [place] SPECIMEN(S) SUBMITTED A - Gastric ??Antrum for H Pylori, excision (1) CLINICAL INFORMATION Hiatal hernia SPECIMEN PROCESSING A - Labeled/Fixativ e: Gastric antrum for H. pylori, formalin. Quantity/Size: Single, 0.3 cm. Tissue Description: Soft, pink tissue. Sections/Proces sing: Submitted en toto ??in 1 cassette labeled A1. ??sns 01/09/2022 4:36 PM EDT [facility] GI Biopsy 01/08/2022 8:14 AM EDT 01/08/2022 8:14 AM EDT Laura Park MD PATHOLOGY/CYTOLOGY ORDERABLES [facility] [place] [address] * POCT Glucose (01/08/2022 6:33 AM EDT) Glucose, POC 120 65 - 199 mg/dL [facility] Comment: Supplemental ranges: <140 mg/dL before meals <180 mg/dL all other times of the day Blood 01/08/2022 6:33 AM EDT 01/08/2022 6:33 AM EDT Laura Park MD POINT [place] [address] documented in this encounter Visit Diagnoses Not on filedocumented in this encounter Active and Recently Administered Medications Care Teams Painter Spray Relationship Specialty Start Date End Date Ana Her MD [address] [place] [address] PCP - General 07/29/13 documented as of this encounter
--- OUTSIDE RECORDS SUMMARY | 2024-04-25 11:03 | XMS_ITS | Encounter Summary ---
[place] [address] Care Team Providers Care Account Liaison Name Role Phone Ana Her MD Primary Care Provider [phone] Encounter Details Date Type Department Care Team (Late st Contact Info) Description 11/01/2021 Telephone [place] [address] Chelsie Lauren Social History Tobacco Use Types [...] on filedocumented in this encounter Care Teams Account Liaison Relationship Specialty Start Date End Date Ana Her MD [address] [place] [address] PCP - General 07/29/13 documented as of this encounter
--- OUTSIDE RECORDS SUMMARY | 2024-04-25 11:03 | XMS_ITS | Encounter Summary ---
Author Organization [place] [address] Care Team Providers Care Video Production Intern Name Role Phone Ana Her MD Primary Care Provider [phone] Encounter Details Date Type Department Care Team (Late st Contact Info) Description 03/09/2022 Telephone [place] [address] Prakash Mendez MD [facility] [place] [address] Social History Tobacco Use Types Packs/Day Years [...] the mobile number listed in her chart ([phone]). Her other daughter answered the phone and reported that she had just dropped her off in the Emergency Department at [facility] and parked the car. She was walking back to the building to be with her. I reassured her that going to the Emergency Department seemed like a reasonable plan. I assured her that we are always happy to see her here at [facility] anytime and that they could call back anytime with further questions or concerns. This note will be routed to the provider mentioned above. Prakash Mendez MD documented in this encounter Plan of Treatment Not on file documented as of this encounter Visit Diagnoses Not on filedocumented in this encounter Care Teams Video Production Intern Relationship Specialty Start Date End Date Ana Her MD [address] [place] [address] PCP - General 07/29/13 documented as of this encounter
--- OUTSIDE RECORDS SUMMARY | 2024-04-25 11:03 | XMS_ITS | Encounter Summary ---
[place] [address] Care Team Providers Care Procedure Rn Name Role Phone Ana Her MD Primary Care Provider [phone] Reason for Visit * Auth/Cert Specialty Diagnoses / Procedures Referred By Christiano hackett Referred To Contact Diagnoses S/P repair of paraesophageal hernia Post-Op monitoring Procedures PRO LAPARSCOPY REPAIR PARAESOPHAGEAL HERNIA INCL FUNDOPLASTY W/O MESH LAPAROSCOPIC PARAESOPHAGEAL HERNIA REPAIR W/FUNDOPLASTY, W/O MESH (WRVU 26.6) MODIFIER TOUPET FUNDOPLASTY Shania Will MD [facility] [place] [address] [facility] Referral ID Status Reason Start Date Expiration Date Visits Re quested Visits Authorized [id number] 1 1 Encounter Details Date Type Department Care Team (Late st Contact Info) Description 03/05/2022 12:54 PM EDT - 03/05/2022 4:55 PM EDT [place] [phone] Shania Will MD [facility] [place] [address] LAPAROSCOPIC PARAESOPHAGEAL HERNIA REPAIR W/FUNDOPLASTY, W/O MESH [...] of left breast of female, estrogen receptor bqvmroxfP34.512, Z17.0 ??? Anemia D64.9 ??? Aortic valve [...] Per chart review, her creatinine levels in 9431-5844 ranged from 0.87-1.50 indicative of possible undiagnosed [...] PM Shania Will MD General Surgery at [facility] Arrive at: Chemical Engineering Professor Area [phone] Instructions Given to Patient at Discharge: Patient [...] hours please call the Surgery Clinic at [phone] before 5 PM on weekdays. For questions after hours and on weekends please call the hospital proof machine operator supervisor at [phone] and ask for the General Surgery resident customer relations specialist. They may not be familiar with [...] post Sly diet, as instructed by the civil clerk in the hospital for a period of [...] renal function. Please call the clinic at [phone] to confirm or reschedule. Future Appointments Date Time Provider Department Center 04/03/2022 12:00 PM Shania Will MD [facility] SURG [facility] General Instructions None Future Appointments and Orders Future Appointments and Orders Future Appointments Provider Department Dept Phone 04/03/2022 12:00 PM Shania Will MD General Surgery at [facility] Arrive at: Chemical Engineering Professor Area 4L [phone] Signed: Shena Harden MD 03/07/22 7:18 AM [phone] Primary Saima Physician: MD Geovany David [facility] [id number] documented in this encounter Discharge Instructions * [...] hours please call the Surgery Clinic at [phone] before 5 PM on weekdays. For questions after hours and on weekends please call the hospital proof machine operator supervisor at [phone] and ask for the General Surgery resident customer relations specialist. They may not be familiar with [...] post Sly diet, as instructed by the civil clerk in the hospital for a period of [...] renal function. Please call the clinic at [phone] to confirm or reschedule. Future Appointments Date Time Provider Department Center 04/03/2022 12:00 PM Shania Will MD [facility] SURG [facility] documented in this encounter [...] Ocampo RN - 03/07/2022 10:25 AM EDT [facility] Short Stay Unit Discharge Note All [...] Sly Diet Education to pt Digna Olson. Transfer Controller metwith pt at bedside to deliver full [...] she is noticing some overall improvement post op.Transfer Controller took note of this and encouraged the [...] Department contact information provided. Pt appreciate of handbook writer's time. Nutrition to follow as needed. [...] Perez MD 03/05/2022 Minimally Invasive Surgery Pager #[phone] * Lorrie Slater RN - 03/05/2022 6:46 [...] ?? She is followed by cardiology at [facility], and is on xarelto. [...] of left breast of female, estrogen receptor [id number], Z17.0 ??? Anemia D64.9 ??? Aortic valve [...] by Malika Chen MD at [facility] MAIN OR ??? PRO INTRAOP SENTINEL LYMPH ID W/DYE INJECTION Left 03/30/2017 ?? INTRAOPERATIVE ID (MAPPING) SENTINEL LYMPH NODE,INCLUDES INJECTION (WRVU 2.5) performed by Malika Chen MD at [facility] MAIN OR ??? PRO MASTECTOMY PARTIAL Left 03/30/2017 ?? MASTECTOMY PARTIAL (WRVU 10.13) performed by Malika Chen MD at [facility] MAIN OR ?? Cholecystectomy ?? Medications: [...] Operative Note Patient Name: Digna Olson : [id number] MR#: [id number] Case Date: 03/05/2022 Surgeon: Surgeon(s) and Role: [...] Flores MD - 03/05/2022 2:32 PM EDT [facility] Operative Note Patient Name: Digna Olson : [id number] MR#: [id number] Case Date: 03/05/2022 Surgeon: Surgeon(s) and Role: [...] mediastinal dissection to mobilize the esophagus. A Bingham which was placed around the esophagus was [...] Repair Paraesophageal Hernia Incl Fundoplasty W/O Mesh (85374) 03/05/2022 1:58 PM EDT Paraesophageal Hernia POCT [facility] Monocyte % 7.6 % [facility] Monocyte Abs 0.5 0.3 - 0.9 x10(3)/mc L [facility] Eos % 0.0 % [facility] Eosinophils Abs 0.0 0.0 - 0.4 x10(3)/[facility] Basophil % 0.0 % [facility] Baso Absolute 0.0 0.0 - 0.1 x10(3)/[facility] Immature Gran % 0.30 % [facility] Comment: Immature granulocytes(IG's)percentage and absolute count will include metamyelocytes, myelocytes, and promyelocytes. Blood smears from CBCs yielding IG's will be scanned manually for concordance. If this scan disagrees with the automated IG or if promyelocytes are noted, a manual differential will be performed. Immature Gran Absolute 0.02 0.00 - 0.04 x10(3)/[facility] Blood 03/07/2022 5:08 AM EDT 03/07/2022 5:19 AM EDT Narrative Resulting Agency Comment Spec In Lab Nino Levy MD HEMATOLOGY ORDERABLE S [facility] [place] [address] * (ABNORMAL) Hemogram (03/07/2022 5:08 AM EDT) White Blood Cell 6.6 4.0 - 9.5 x10(3)/[facility] Red Blood Cell 3.16(L) 4.00 - 5.21 x10(6)/[facility] [...] Platelet 110(L) 145 - 357 x10(3)/mc L [facility] RDW Standard Deviation 47.5(H) 37.0 - 46.0 [facility] RDW coefficient of variation 12.9 11.5 - 14.1 % [facility] Mean Platelet Volume 11.7 7.6 - 12.9 [facility] NRBC% auto 0.0 % [facility] NRBC Absolute 0.000 0.000 - 0.000 x10(3)/mc L [facility] Blood 03/07/2022 5:08 AM EDT 03/07/2022 5:19 AM EDT Narrative Resulting Agency Comment Spec In Lab Nino Levy MD HEMATOLOGY ORDERABLE S Performing Organization Address City/[facility]/[place] [address] * Phosphorus (03/07/2022 5:08 AM EDT) Phosphorus 2.7 2.5 - 4.5 mg/dL [facility] Blood 03/07/2022 5:08 AM EDT 03/07/2022 5:19 AM EDT Narrative Resulting Agency Comment Spec In Lab Shania Will MD CHEMISTRY ORDERABLE S Performing Organization Address City/[facility]/ZIP Co de Phone Number [facility] [place] [address] * Magnesium (03/07/2022 5:08 AM EDT) Magnesium 0.89 0.69 - 1.07 mmol/L [facility] Blood 03/07/2022 5:08 AM EDT 03/07/2022 5:19 AM EDT Narrative Resulting Agency Comment Spec In Lab Shania Will MD CHEMISTRY ORDERABLE S [facility] [place] [address] * (ABNORMAL) Basic Metabolic Panel (non-fasting) (03/07/2022 [...] MD CHEMISTRY ORDERABLE S Performing Organization Address City/[facility]/ZIP Co de Phone Number [facility] [place] [address] * (ABNORMAL) Differential, Automated (03/06/2022 10:15 AM EDT) Neutrophil % 90.7 % [facility] Neutrophil Absolute 5.79 1.70 - 6.10 x10(3)/mc L [facility] Lymph % 5.0 % [facility] Lymphocytes Abs 0.3(L) 0.9 - 3.2 x10(3)/mc L [facility] Monocyte % 3.8 % [facility] Monocyte Abs 0.2(L) 0.3 - 0.9 x10(3)/mc L [facility] Eos % 0.0 % [facility] Eosinophils Abs 0.0 0.0 - 0.4 x10(3)/[facility] Basophil % 0.0 % [facility] Baso Absolute 0.0 0.0 [...] Absolute 0.03 0.00 - 0.04 x10(3)/mc L [facility] Blood 03/06/2022 10:1 5 AM EDT 03/06/2022 10:21 AM EDT Narrative Resulting Agency Comment Spec In Lab Maryam MUELLER HEMATOLOGY ORDERABL ES Performing Organization Address City/[facility]/ZIP Co de Phone Number [facility] [place] [address] * (ABNORMAL) Hemogram (03/06/2022 10:15 AM EDT) [...] HOSPITAL LABORATORY Platelet 111(L) 145 - 357 x10(3)/[facility] RDW Standard Deviation 47.2(H) 37.0 - 46.0 [facility] RDW coefficient of variation 12.9 11.5 - 14.1 % [facility] Mean Platelet Volume 11.5 7.6 - 12.9 [facility] NRBC% auto 0.0 % [facility] NRBC Absolute 0.000 0.000 - 0.000 x10(3)/ L [facility] Blood 03/06/2022 10:1 5 AM EDT 03/06/2022 10:21 AM EDT Narrative Resulting Agency Comment Spec In Lab Maryam MUELLER HEMATOLOGY ORDERABL ES [facility] [place] [address] * Phosphorus (03/06/2022 10:15 AM EDT) Phosphorus 3.3 2.5 - 4.5 mg/dL [facility] Blood 03/06/2022 10:1 5 AM EDT 03/06/2022 10:21 AM EDT Narrative Resulting Agency Comment Spec In Lab Shania Will MD CHEMISTRY ORDERABLE S [facility] [place] [address] * Magnesium (03/06/2022 10:15 AM EDT) Magnesium 0.69 0.69 - 1.07 mmol/L [facility] Blood 03/06/2022 10:1 5 AM EDT 03/06/2022 10:21 AM EDT Narrative Resulting Agency Comment Spec In Lab Shania Will MD CHEMISTRY ORDERABLE S Performing Organization Address City/[facility]/ZIP Co de Phone Number [facility] [place] [address] * (ABNORMAL) Basic Metabolic Panel (non-fasting) (03/06/2022 10:15 AM EDT) Glucose 155 65 - 199 mg/dL [facility] [...] MD CHEMISTRY ORDERABLE S Performing Organization Address City/State/[facility] Co de Phone Number [facility] [place] [address] * (ABNORMAL) Differential, Automated (03/06/2022 4:29 AM EDT) Neutrophil % 90.5 % [facility] Neutrophil Absolute 4.47 1.70 - 6.10 x10(3)/mc L [facility] Lymph % 6.9 % [facility] Lymphocytes Abs 0.3(L) 0.9 - 3.2 x10(3)/mc L [facility] Monocyte % 2.2 % [facility] Monocyte Abs 0.1(L) 0.3 - 0.9 x10(3)/mc L [facility] Eos % 0.0 % [facility] Eosinophils Abs 0.0 0.0 - 0.4 x10(3)/mc L [facility] Basophil % 0.2 % [facility] Baso Absolute 0.0 0.0 [...] Immature Gran Absolute 0.01 0.00 - 0.04 x10(3)/[facility] Blood 03/06/2022 4:29 AM EDT 03/06/2022 4:49 AM EDT Narrative Resulting Agency Comment Spec In Lab Prakash Mendez MD HEMATOLOGY ORDERABLE S [facility] [place] [address] * (ABNORMAL) Hemogram (03/06/2022 4:29 AM EDT) White Blood Cell 4.9 4.0 - 9.5 x10(3)/[facility] Red Blood Cell 3.08(L) 4.00 - 5.21 x10(6)/[facility] [...] HOSPITAL LAB[facility] Platelet 104(L) 145 - 357 x10(3)/[facility] RDW Standard Deviation 47.5(H) 37.0 - 46.0 fL [facility] RDW coefficient of variation 12.9 11.5 - 14.1 % [facility] Mean Platelet Volume 11.8 7.6 - 12.9 fL [facility] NRBC% auto 0.0 % [facility] NRBC Absolute 0.000 0.000 - 0.000 x10(3)/mc L [facility] Blood 03/06/2022 4:29 AM EDT 03/06/2022 4:49 AM EDT Narrative Resulting Agency Comment Spec In Lab Prakash Mendez MD HEMATOLOGY ORDERABLE S [facility] [place] [address] * (ABNORMAL) Basic Metabolic Panel (non-fasting) (03/06/2022 [...] MD CHEMISTRY ORDERABLE S Performing Organization Address City/[facility]/ZIP Co de Phone Number [facility] [place] [address] * POCT Glucose (03/05/2022 12:18 PM EDT) Glucose, POC 94 65 - 199 mg/dL [facility] Comment: Supplemental ranges: <140 mg/dL before meals <180 mg/dL all other times of the day Blood 03/05/2022 12:1 8 PM EDT 03/05/2022 12:18 PM EDT Shania Will MD POINT OF CARE TEST ORDERABLES Performing Organization Address City/[facility]/ZIP Co de Phone Number [facility] [place] [address] documented in this encounter Visit Diagnoses Not [...] Until Discontinued, Routine 2222 (Given - Provider: Aylssa Perales RN) furosemide (Lasix) tablet 40 mg [...] Unit) documented in this encounter Care Teams Procedure Rn Relationship Specialty Start Date End Date Ana Her MD [address] [facility] [address] [place] [address] PCP - General 07/29/13 documented as of this encounter
--- OUTSIDE RECORDS SUMMARY | 2024-04-25 11:03 | XMS_ITS | Encounter Summary ---
Author Organization [facility] [place] [address] Care Team Providers Care Leadership Development Instructor Name Role Phone Ana Her MD Primary Care Provider [phone] Encounter Details Date Type Department Care Team (Late st Contact Info) Description 03/09/2022 11:00 PM EST Ancillary Procedure Radiology Library at [facility] [place] [address] Ana Her MD [address] [place] [address] [facility] [address] [place], [place] [id number] Social History Tobacco Use Types Packs/Day Years [...] CT Chest (03/09/2022 10:56 PM EST) Narrative [facility] - 03/09/2022 10:56 PM EST This exam is auto-finalizing. It's purpose is for storage only. Ana Her MD IM FILM LIBRARY ORD ERABLES [place], [place] documented in this encounter Visit Diagnoses Not on filedocumented in this encounter Care Teams Leadership Development Instructor Relationship Specialty Start Date End Date Ana Her MD [address] [facility] [address] [place] [address] PCP - General 07/29/13 documented as of this encounter
--- OUTSIDE RECORDS SUMMARY | 2024-04-25 11:03 | XMS_ITS | Clinical Summary ---
Author Organization [facility] [place] [address] Care Team Providers Care Slot Manager Name Role Phone Ana Her MD Primary Care Provider [phone] Allergies No known active allergies Medications Medication [...] the eliquis and has been managed by [facility]. She has remained in [...] and ECG with Dr. 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 08/30/2014 Anemia 11/05/2010 Overview (05/22/2020): Overview: [...] - TT3 and FT4 nl - My NIGHT CUSTODIAN colleague called and spoke with covering MD [...] history exists Medical Devices Implanted Type Area Assistant Business Manager Device Identifier Shelf Expiration Date Model / Serial / Lot Breast Clip-02/26/20 17 Implanted: by Enzo Burkett MD (Quantity not on file) Breast Clip Left: Breast Bard - 0614 05/04/2019 [employer] ULTRACOR BREAST TISSUE MARKER ULTRASOUND ENHANCED BLANCA / / [id number] Description:BLANCA Procedures Procedure Name Priority Date/Time Associated [...] Osteopenia of neck of femur, unspecified laterality FDC current 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 from Last [...] questions please contact the health patient care secretary that requested your imaging first. ? Jeanine Lobato BIOINFORMATICS SOFTWARE ENGINEER IMG MAMMO ORD ERABLES * DXA Central [...] BMD measurements and plots are available in [employer] under the imaging tab. Paper copies will be sent to providers without E-[employer] (PGD) access. If you have received this report without the data sheet and do not have access to ZEFR, please contact Radiology Cheese Grader at [phone] Thursday thru Thursday 8am-4pm. Thank you for letting us participate in the care of this patient. ??If you are a health care provider and have any questions regarding this report, please contact the number below. ??For patients who have questions please contact the health patient care secretary that requested your imaging first. ? Narrative [...] BMD measurements and plots are available in [employer]under the imaging tab. Paper copies will be sent to providers without E- access.If you have received this report without the data sheet and do not haveaccess to E-, please contact Radiology Cheese Grader at [phone] Thursday thrrid 8am-4pm. Thank you for letting us participate in the care of this patient. If youare a health care provider and have any questions regarding this report,please contact the number below. For patients who have questions please contactthe health patient care secretary that requested your imaging first. Ricky Lowry [...] Status decision made by: Patient Care Teams Slot Manager Relationship Specialty Start Date End Date Ana Her MD [facility] [address] [place] [address] [facility] - General 07/29/13
--- OUTSIDE RECORDS SUMMARY | 2024-04-25 11:03 | XMS_ITS | Encounter Summary ---
[place] [address] Care Team Providers Care Shoe Stitcher Odd Name Role Phone Ana Her MD Primary Care Provider [phone] Encounter Details Date Type Department Care Team (Late st Contact Info) Description 10/23/2022 Telephone Mammography/[place] [address] [place] [place] Social History Tobacco Use Types [...] on filedocumented in this encounter Care Teams Shoe Stitcher Odd Relationship Specialty Start Date End Date Ana Her MD [address] [place] [address] PCP - General 07/29/13 documented as of this encounter
--- OUTSIDE RECORDS SUMMARY | 2024-04-25 11:03 | XMS_ITS | Encounter Summary ---
Author Organization Replaced By [facility] [place] [address] Care Team Providers Care Training Program Manager Name Role Phone Ana Her MD Primary Care Provider [phone] Reason for Visit * Consultation (Routine) - Closed Specialty Diagnoses / Procedures Referred By Christiano hackett Referred To Contact General Surgery Diagnoses Hiatal hernia Ana Her MD [address] [place] [address] [facility] Gen Surgery [address] [place] [address] Referral ID Status Reason Start Date Expiration Date V isits Requested Visits Authorized [id number] Closed Consult, Test & Treat 09/23/2021 09/23/2022 6 6 Encounter Details Date Type Department Care Team (Latest Contact Info) Description 12/05/2021 3:00 PM EDT Office [place] [address] Laura Will MD [facility] [place] [address] Paraesophageal hernia Social History Tobacco [...] of left breast of female, estrogen receptor phvxcpdbS40.512, Z17.0 ??? Anemia D64.9 ??? Aortic valve [...] Chen MD at [facility] MAIN OR Cholecystectomy Medications: Current Outpatient [...] gangrene documented in this encounter Care Teams Training Program Manager Relationship Specialty Start Date End Date Ana Her MD [address] [place] [address] PCP - General 07/29/13 documented as of this encounter
--- OUTSIDE RECORDS SUMMARY | 2024-04-25 11:04 | XMS_ITS | Encounter Summary ---
[place] [address] Care Team Providers Care Poker Machine Attendant Name Role Phone Ana Her MD Primary Care Provider [phone] Encounter Details Date Type Department Care Team (Late st Contact Info) Description 11/09/2018 2:45 PM EDT Office Visit H[place]ology [place] [address] Ricky Lowry MD Malignant neoplasm of lower-outer [...] ??Excision with image-guided localization ?Lymph Node Sampling: ??[place] lymph node(s) ?Specimen Laterality: ??Left Tumor ?Histologic [...] ??DCIS not present in specimen Lymph Nodes ?[place] Lymph Nodes: [place] lymph node biopsy performed ?Number of [place] Nodes Examined: ??3 ?Number of Lymph Node(s) [...] stenosis > A Fib. Cardiology at [facility]. S/P successful cardioversion May [...] laterality documented in this encounter Care Teams Poker Machine Attendant Relationship Specialty Start Date End Date Ana Her MD [address] [place] [address] PCP - General 07/29/13 documented as of this encounter
--- OUTSIDE RECORDS SUMMARY | 2024-04-25 11:04 | XMS_ITS | Encounter Summary ---
[place] [address] Care Team Providers Care Coil Winding Supervisor Name Role Phone Ana Her MD Primary Care Provider [phone] Reason for Visit * Reason Comments Follow-up Encounter Details Date Type Department Care Team (Late st Contact Info) Description 11/29/2019 2:45 PM EDT Office Visit Hematology [place] [address] Ricky Lowry MD Malignant neoplasm of lower-outer [...] ??Excision with image-guided localization ?Lymph Node Sampling: ??[place] lymph node(s) ?Specimen Laterality: ??Left Tumor ?Histologic [...] ??DCIS not present in specimen Lymph Nodes ?[place] Lymph Nodes: [place] lymph node biopsy performed ?Number of [place] Nodes Examined: ??3 ?Number of Lymph Node(s) [...] stenosis > A Fib. Cardiology at [facility]. S/P successful cardioversion May 2018. DEXA scan [...] positive documented in this encounter Care Teams Coil Winding Supervisor Relationship Specialty Start Date End Date Ana Her MD [address] [place] [address] PCP - General 07/29/13 documented as of this encounter
--- OUTSIDE RECORDS SUMMARY | 2024-04-25 11:04 | XMS_ITS | Encounter Summary ---
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
--- OUTSIDE RECORDS SUMMARY | 2024-04-25 11:04 | XMS_ITS | Encounter Summary ---
Author Organization [facility] [place] [address] Care Team Providers Care Spray Gun Sizer Name Role Phone Ana Her MD Primary Care Provider [phone] Encounter Details Date Type Department Care Team (Latest Contact Info) Description 05/31/2019 10:16 AM EST - 05/31/2019 11:59 PM EST Hospital Encounter Mammography/[place] [phone] Jeanine Lobato APRN [facility] [place] [address] History of breast cancer Discharge Disposition: Home [...] BIRADS CATEGORY 2: Benign findings. * ??[employer] and The Society of [...] breast documented in this encounter Care Teams Spray Gun Sizer Relationship Specialty Start Date End Date Ana Her MD [address] [place] [address] PCP - General 07/29/13 documented as of this encounter
--- OUTSIDE RECORDS SUMMARY | 2024-04-25 11:04 | XMS_ITS | Encounter Summary ---
Author Organization Formerly [facility] [place] [address] Care Team Providers Care Tape Duplicator Name Role Phone Ana Her MD Primary Care Provider [phone] Encounter Details Date Type Department Care Team (Late st Contact Info) Description 10/23/2017 9:43 AM EDT - 10/23/2017 11:59 PM EDT Hospital [place] [phone] Hiral Padgett, WENDY History of breast cancer [...] breast documented in this encounter Care Teams Tape Duplicator Relationship Specialty Start Date End Date Ana Her MD [address] [place] [address] PCP - General 07/29/13 documented as of this encounter
--- OUTSIDE RECORDS SUMMARY | 2024-04-25 11:04 | XMS_ITS | Encounter Summary ---
[place] [address] Care Team Providers Care Sales And Service Consultant Name Role Phone Ana Her MD Primary Care Provider [phone] Encounter Details Date Type Department Care Team (Late st Contact Info) Description 05/10/2018 2:15 PM EST Office [place] [address] Hiral Padgett, WENDY History of breast cancer [...] with image-guided localization ?Lymph Node Sampling: ?? [place] lymph node(s) ?Specimen Laterality: ?? Left Tumor [...] ?DCIS not present in specimen Lymph Nodes ?[place] Lymph Nodes: ?? [place] lymph node biopsy performed ?Number of [place] Nodes Examined: ?3 ?Number of Lymph Node(s) [...] mammogram today is cat 2. Leaving for [place] later today for a cardiac ablation/a fib at [facility]. Objective: Physical Exam Constitutional: She is oriented [...] breast documented in this encounter Care Teams Sales And Service Consultant Relationship Specialty Start Date End Date Ana Her MD [address] [place] [address] PCP - General 07/29/13 documented as of this encounter
--- OUTSIDE RECORDS SUMMARY | 2024-04-25 11:04 | XMS_ITS | Encounter Summary ---
[place] [address] Care Team Providers Care Plate Cutter Name Role Phone Ana Her MD Primary Care Provider [phone] 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 * Consultation (Routine) - Closed Specialty Diagnoses / Procedures Referred By Christiano hackett Referred To Contact Plastic Surgery Diagnoses 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, estrogen receptor positive Macromastia Jeanine Lobato APRN [facility] [place] [address] [facility] [address] [address] Referral ID Status Reason Start Date Expiration Date V isits Requested Visits Authorized [id number] Closed Consult, Test & Treat 06/11/2021 06/11/2022 1 1 Encounter Details Date Type Department Care Team (Late st Contact Info) Description 06/11/2021 10:00 AM EST Office [place] [address] Jeanine Lobato APRN [facility] [place] [address] Encounter for follow-up surveillance of [...] this encounter Progress Notes * Jeanine Lobato, GOVERNMENT AFFAIRS RESEARCHER - 06/11/2021 10:00 AM EST Images from [...] was obtained which revealed IDC which is ER/LA positive, Her2 negative. Alma Delia opted against [...] mm Grade Intermediate Margins Negative ER Positive LA Positive HER-2 Negative OncotypeDx Recurrence Score N/A [...] Family history of ovarian cancer No Ashkenazi Sabianist heritage No Known genetic mutation Not tested [...] to speak almost daily. He lives in [place] and is beginning to show early signs [...] situation. Results: Imaging performed (bilateral mammogram) at [facility] today shows no evidence of malignancy, BIRADS [...] have discussed my assessment and recommendations with Alam Delia to include occasional self-breast exams and [...] free apps for your cell phone from [employer] ([employer]) and [employer] ([employer]). All questions were answered to the patient's satisfaction and they state understanding and agreement with today's treatment plan. They are encouraged to follow up sooner if they develop any new or concerning symptoms. Jeanine Lobato APRN Surgical Oncology P [phone] F [phone] [facility] documented in this encounter Plan of [...] breast documented in this encounter Care Teams Plate Cutter Relationship Specialty Start Date End Date Ana Her MD [address] [place] [address] PCP - General 07/29/13 documented as of this encounter
--- OUTSIDE RECORDS SUMMARY | 2024-04-25 11:04 | XMS_ITS | Encounter Summary ---
Author Organization Formerly [facility] [place] [address] Care Team Providers Care Nursing Teacher Name Role Phone Ana Her MD Primary Care Provider [phone] Encounter Details Date Type Department Care Team (Late st Contact Info) Description 05/31/2019 1:00 PM EST Office Visit [place] [address] Jeanine Lobato CLEARING DISTRIBUTION CLERK [facility] [place] [address] Encounter for follow-up surveillance of breast cancer; [...] herex- speak almost daily. He lives in [place]. She enjoys reading and cooking. She does [...] Results: Imaging performed [place]ogram) [place] [facility] [place] shows no evidence of malignancy, [...] symptoms. Jeanine Lobato APRN Surgical Oncology P [phone] F [phone] [facility] documented in this encounter Plan of Treatment [...] documented in this encounter Care Teams Nursing Teacher Relationship Specialty Start Date End Date Ana Her MD [facility] [address] [facility] [[email or web address] [address] [place] [address] PCP - General 07/29/13 documented as of this encounter
--- OUTSIDE RECORDS SUMMARY | 2024-04-25 11:04 | XMS_ITS | Encounter Summary ---
Author Organization [facility] [place] [address] Care Team Providers Care Paper Spooler Name Role Phone Ana Her MD Primary Care Provider [phone] Encounter Details Date Type Department Care Team (Late st Contact Info) Description 05/10/2018 1:10 PM EST - 05/10/2018 11:59 PM EST Hospital Encounter Mammography/[place] [phone] Hiral Padgett, WENDY Encounter for screening mammogram [...] cancer documented in this encounter Care Teams Paper Spooler Relationship Specialty Start Date End Date Ana Her MD [address] [place] [address] PCP - General 07/29/13 documented as of this encounter
--- OUTSIDE RECORDS SUMMARY | 2024-04-25 11:04 | XMS_ITS | Encounter Summary ---
[place] [address] Care Team Providers Care Paving Stone Installer Name Role Phone Ana Her MD Primary Care Provider [phone] Reason for Visit * Reason Comments Schedule Office Case Encounter Details Date Type Department Care Team (Late st Contact Info) Description 04/23/2017 2:00 PM EST Office Visit Hematology [place] [phone] Ricky Lowry MD Malignant neoplasm of lower-outer [...] cancer cells with immunostaining) Stain intensity: Strong AK immunoreactivity: Positive (>90% cancer cells with immunostaining) [...] ??Excision with image-guided localization ?Lymph Node Sampling: ??[place] lymph node(s) ?Specimen Laterality: ??Left Tumor ?Histologic [...] ??DCIS not present in specimen Lymph Nodes ?[place] Lymph Nodes: [place] lymph node biopsy performed ?Number of [place] Nodes Examined: ??3 ?Number of Lymph Node(s) [...] DEXA scan was in this year at [facility]. There is no history [...] positive documented in this encounter Care Teams Paving Stone Installer Relationship Specialty Start Date End Date Ana Her MD [address] [place] [address] PCP - General 07/29/13 documented as of this encounter
--- OUTSIDE RECORDS SUMMARY | 2024-04-25 11:04 | XMS_ITS | Encounter Summary ---
[place] [address] Care Team Providers Care Dobie Worker Name Role Phone Ana Her MD Primary Care Provider [phone] Encounter Details Date Type Department Care Team (Latest Contact Info) Description 03/30/2017 7:27 AM EST - 03/30/2017 1:37 PM EST Hospital En[place] [phone] Brant Chen MD [facility] [place] [address] Discharge Disposition: Home Social History Tobacco Use [...] shower 24 hours Activity as tolerated Call [phone] with any questions Do not soak incision [...] was obtained which revealed IDC which is ER/TX+, her2-. She has no known breast masses, no adenopathy, no nipple discharge. ?? Alma Delia had a bone scan in [place] which was read as possible metastasis in the left tibia. Of note- she fractured this area recently. She has recovered well. ?? PMH HNT NIDDM not on meds Spinal stenosis Fractured left tibial plateau December, GERD ?? FH: Maternal first cousin with breast cancer Brother with rectal cancer Sister with PE ? SH: lives alone. Has good support from sisters who live in [place]. Non smoker. Has a son who lives [...] 71 yo female with radiographic stage I ER/TX+, HER2- IDC of the left breast. No [...] Chen MD - 03/30/2017 12:27 PM EST [facility] Operative Note Patient Name: Digna Olson : [id number] MR#: [id number] Case Date: 03/30/2017 Surgeon: Surgeon(s) and Role: [...] [place] [address]. Remaining count within the axilla was 1982. [...] PM EST 03/30/2017 12:09 PM EST Narrative [facility] - 03/30/2017 12:09 PM EST Specimen requisition ordered. ??Separate Pathology report to follow Brant Chen MD PATHOLOGY/CYTOLOGY ORDERABLES [facility] [place] [address] * Specimen to Pathology (surgical or derm) (03/30/2017 12:08 PM EST) AP Specimen 03/30/2017 12:0 8 PM EST 03/30/2017 12:08 PM EST Narrative [facility] - 03/30/2017 12:08 PM EST Specimen requisition ordered. ??Separate Pathology report to follow Brant Chen MD PATHOLOGY/CYTOLOGY ORDERABLES Performing Organization Address [facility] [place] [address] * Specimen to Pathology (surgical or derm) (03/30/2017 12:00 PM EST) AP Specimen 03/30/2017 12:0 0 PM EST 03/30/2017 12:00 PM EST Narrative [facility] - 03/30/2017 12:00 PM EST Specimen requisition ordered. ??Separate Pathology report to follow Brant Chen MD PATHOLOGY/CYTOLOGY ORDERABLES Performing Organization Address [facility] Co de Phone Number [place] [phone] * Specimen to Pathology (surgical or derm) (03/30/2017 11:51 AM EST) AP Specimen 03/30/2017 11:5 1 AM EST 03/30/2017 11:51 AM EST Narrative [facility] - 03/30/2017 11:51 AM EST Specimen requisition ordered. ??Separate Pathology report to follow Brant Chen MD PATHOLOGY/CYTOLOGY ORDERABLES Performing Organization Address [facility] [place] [address] * Surgical Pathology Report (03/30/2017 11:50 AM EST) Final Diagnosis [id number] ? Location: [facility]; [facility]; A The signing pathologist has (i) examined the relevant preparation(s) for the specimen(s) and (ii) rendered or confirmed the diagnosis(es). . ?Surgical Pathology DIAGNOSIS A,B - See Synoptic C - Left breast, Deep/lateral margin re-excision - ?Benign fatty breast tissue. D - Left breast, Superficial margin re-excision - ?Benign fatty breast tissue. See Note Note - Benton ink (indicating additional cranial margin) is also present on this superficial margin re-excision. ---- Specimen Parts: ?? A - Left axilliary sentinel node B - Left breast partial mastectomy Specimen ? Procedure: ??Excision with image-guided localization ? Lymph Node Sampling: ?? [place] lymph node(s) ? Specimen Laterality: ?? Left [...] not present in specimen Lymph Nodes ? [place] Lymph Nodes: ?? [place] lymph node biopsy performed ? Number of [place] Nodes Examined: ?3 ? Number of Lymph [...] Chávez DO Verified: ??04/01/2017 ?Pathologist Performed at: ??-[facility] Dept. of Pathology, [place], [place] CLINICAL INFORMATION Specimen Submitted: A - [...] and there are ??no close margins. per [facility] Radiology . Specimen Description: According to [...] 0.8 x 0.4 x 0.4 cm. Color: [place] and yellow. Consistency: Soft. Location: Slices III and IV. Nearest Margin: 0.6 cm to the cranial margin. Other Margins: 0.8 cm to the deep margin, 1.0 cm to the superficial margin, ? > 2 cm from all other margins. OTHER Parenchyma: Predominately fatty with scant fibrous tissue. Wire/Clip: Biopsy marker clip identified within slice IV. SECTIONS/PROCESSI NG: (1) inbound sales representative slice I, lateral margin; (2) slice III, lesion to cranial margin; (3-5) remainder of slice III; (6) slice IV, lesion to cranial margin (clip); (7-8) remainder of slice IV; (9) inbound sales representative slice V; (10) inbound sales representative slice X, medial margin. (R10) [...] sectioned. (T3) ??sns 04/01/2017 9:38 AM EST [facility] BREAST STRUCTURE / Unknown 03/30/2017 11:50 AM EST 03/30/2017 11:50 AM EST BREAST STRUCTURE / Unknown 03/30/2017 11:50 AM EST 03/30/2017 11:50 AM EST BREAST STRUCTURE / Unknown 03/30/2017 11:50 AM EST 03/30/2017 11:50 AM EST BREAST STRUCTURE / Unknown 03/30/2017 11:50 AM EST 03/30/2017 11:50 AM EST Brant Chen MD PATHOLOGY/CYTOLOGY ORDERABLES [facility] [place] [address] * Mammo Direct Digital Left (03/30/2017 9:15 [...] Routine documented in this encounter Care Teams Dobie Worker Relationship Specialty Start Date End Date Ana Her MD [address] [place] [address] PCP - General 07/29/13 documented as of this encounter
--- OUTSIDE RECORDS SUMMARY | 2024-04-25 11:04 | XMS_ITS | Encounter Summary ---
Author Organization [facility] [place] [address] Care Team Providers Care Eyeglass Lens Grinder Name Role Phone Ana Her MD Primary Care Provider [phone] Encounter Details Date Type Department Care Team (Latest Contact Info) Description 06/11/2021 8:41 AM EST - 06/11/2021 11:59 PM [facility] Hospital Encounter Mammography/[place] [address] Jeanine Lobato APRN [facility] [place] [address] Malignant neoplasm of lower-outer quadrant of left [...] Take 40 mg by mouth daily. omega 7-bzk-mtc-fish-turm salty 417 mg-120 mg- 276 mg-600 mg [...] who have questions please contact the health skin care technician that requested your imaging first. ? Jeanine Lobato CONSTRUCTION SAFETY MANAGER IMG MAMMO ORD ERABLES documented in this encounter Visit Diagnoses Diagnosis 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, estrogen receptor positive Breast cancer screening by mammogram documented in this encounter Care Teams Eyeglass Lens Grinder Relationship Specialty Start Date End Date Ana Her MD [address] [place] [address] PCP - General 07/29/13 documented as of this encounter
--- OUTSIDE RECORDS SUMMARY | 2024-04-25 11:04 | XMS_ITS | Encounter Summary ---
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 care current 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 Procedures DXA Central-Spine, Hip, And/Or Whole Body (Generic) Ricky Lowry MD [facility] HEMATOLOGY/[place] [address] [facility] Rad Xray [address] [place] [address] [place] [id number] Referral ID Status Reason Start Date Expiration Date V isits Requested Visits Authorized [id number] Closed Specialty Service Requested 05/10/2018 05/10/2019 1 [...] And/Or Whole Body (Generic) Ricky Lowry MD [facility] HEMATOLOGY/[place] [address] [facility] X[facility] [address] [place] [address] Dr Alaina, [place] [address] Referral ID Status Reason Start Date Expiration Date V isits Requested Visits Authorized [id number] Closed Specialty Service Requested 05/10/2018 05/10/2019 1 1 Encounter Details Date Type Department Care Team (Latest Contact Info) Description 11/09/2018 1:03 PM EDT - 11/09/2018 11:59 PM EDT Hospital Encounter XRay at [address] [place] [address] Ricky Lowry MD 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, estrogen receptor positive; Osteopenia of neck of femur, unspecified laterality; 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 Paper copies will be sent to providers without [employer] access. If you have received this report without the data sheet and do not have access to [employer], please contact Radiology Primary School Teacher Librarian at [phone] Thursday thru Thursday 8am-4pm. Thank you for [...] BMD measurements and plots are available in [employer] the imaging tab. Paper copies will be sent to providers without [employer] access.If you have received this report without the data sheet and do not haveaccess to [employer], please contact Radiology Primary School Teacher Librarian at [phone] Thursday thruFriday 8am-4pm. Thank you for letting us participate in the care of this patient. Forquestions regarding this report, please contact the number below. Electronically signed by: Khushi Hughes [facility] [place] ([phone]),at 11/10/2018 10:55 AM Ricky Lowry MD IMG DEXA ORDERABLES documented in this encounter Visit Diagnoses Diagnosis 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, estrogen receptor positive Osteopenia of neck of femur, unspecified laterality senior care current 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 Use 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s documented in this encounter Care Teams Piano Tuner Relationship Specialty Start Date End Date nAa Her MD [facility] [address] [facility] [address] [place] [address] PCP - General 07/29/13 documented as of this encounter
--- OUTSIDE RECORDS SUMMARY | 2024-04-25 11:04 | XMS_ITS | Encounter Summary ---
Author Organization [facility] [place] [address] Care Team Providers Care Top Spotter Name Role Phone Ana Her MD Primary Care Provider [phone] Encounter Details Date Type Department Care Team (Late st Contact Info) Description 03/30/2017 Notes [place] [address] January Ward MSW Social History Tobacco Use [...] was recently diagnosed with invasive mucinous carcinoma. [facility] attempted to meet with pt in Same Day surgery this morning but she was still in radiology. I spoke with her ex-, Keith, who states she will be staying with him tondenise. Their granddaughters are traveling from [place] and plan to accompany pt to see her wheel assembler at [facility] tomorrow. Pt has been followed by this physician for her cardiac problems. [facility] will continue to provide support and resources to pt. documented in this encounter Plan of Treatment Not on file documented as of this encounter Visit Diagnoses Not on filedocumented in this encounter Care Teams Top Spotter Relationship Specialty Start Date End Date Ana Her MD [address] [facility] 1 [place] [address] PCP - General 07/29/13 documented as of this encounter
--- OUTSIDE RECORDS SUMMARY | 2024-04-25 11:04 | XMS_ITS | Encounter Summary ---
Author Organization [facility] [place] [address] Care Team Providers Care Sectional Belt Mold Assembler Name Role Phone Ana Her MD Primary Care Provider [phone] Encounter Details Date Type Department Care Team (Latest Contact Info) Description 03/30/2017 8:30 AM [facility] Hospital [place] [address] Malika Chen MD [facility] [place] [address] Malignant neoplasm of upper-outer quadrant of left [...] positive documented in this encounter Care Teams Sectional Belt Mold Assembler Relationship Specialty Start Date End Date Ana Her MD [address] [place] [address] PCP - General 07/29/13 documented as of this encounter
--- OUTSIDE RECORDS SUMMARY | 2024-04-25 11:04 | XMS_ITS | Encounter Summary ---
[place] [address] Care Team Providers Care Insurance Account Manager Name Role Phone Ana Her MD Primary Care Provider [phone] Reason for Visit * Reason Comments Follow-up Encounter Details Date Type Department Care Team (Late st Contact Info) Description 06/11/2021 11:00 AM EST Office Visit Hematology [place] [address] Laura Joaquin PA 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, estrogen receptor positive; long-term current 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 Social History [...] stenosis > A Fib. Cardiology at [facility]. S/P successful cardioversion May 2018. DEXA scan [...] on RA Breasts: deferred (examined by surgery SHUTTLE TRUCK DRIVER today) Neuro: grossly nonfocal. Results: Last DXA [...] [facility] Pager - [phone] No future appointments. documented in this encounter Plan of Treatment Not on file documented as of this encounter Visit Diagnoses Diagnosis 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, estrogen receptor positive long-term current 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 Use 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s documented in this encounter Care Teams Insurance Account Manager Relationship Specialty Start Date End Date Ana Her MD [address] [place] [address] PCP - General 07/29/13 documented as of this encounter
--- OUTSIDE RECORDS SUMMARY | 2024-04-25 11:04 | XMS_ITS | Encounter Summary ---
Author Organization [facility] [place] [address] Care Team Providers Care Belt Maker Name Role Phone Ana Her MD Primary Care Provider [phone] Encounter Details Date Type Department Care Team (Late st Contact Info) Description 03/30/2017 9:30 AM EST - 03/30/2017 11:28 AM EST [place] [phone] Brant Chen MD [facility] [place] [address] MASTECTOMY PARTIAL (WRVU 10.13) Social History Tobacco [...] shower 24 hours Activity as tolerated Call [phone] with any questions Do not soak incision [...] was obtained which revealed IDC which is ER/NM+, her2-. She has no known breast masses, no adenopathy, no nipple discharge. ?? Alma Delia had a bone scan in [place] which was read as possible metastasis in the left tibia. Of note- she fractured this area recently. She has recovered well. ?? PMH HNT NIDDM not on meds Spinal stenosis Fractured left tibial plateau Andrews, 2017 GERD ?? FH: Maternal first cousin with breast cancer Brother with rectal cancer Sister with PE ? SH: lives alone. Has good support from sisters who live in [place]. Non smoker. Has a son who lives [...] 71 yo female with radiographic stage I ER/NM+, HER2- IDC of the left breast. No [...] Chen MD - 03/30/2017 12:27 PM EST [facility] Operative Note Patient Name: Digna Olson : [id number] MR#: [id number] Case Date: 03/30/2017 Surgeon: Surgeon(s) and Role: [...] [place] [address]. Remaining count within the axilla was 1982. [...] MD PATHOLOGY/CYTOLOGY ORDERABLES [facility] [place] [address] * Specimen to Pathology (surgical or derm) (03/30/2017 12:08 PM EST) AP Specimen 03/30/2017 12:0 8 PM EST 03/30/2017 12:08 PM EST Narrative [facility] - 03/30/2017 12:08 PM EST Specimen requisition ordered. ??Separate Pathology report to follow Brant Chen MD PATHOLOGY/CYTOLOGY ORDERABLES Performing Organization Address [facility] Co de Phone Number [facility] [place] [address] * Specimen to Pathology (surgical or derm) (03/30/2017 12:00 PM EST) AP Specimen 03/30/2017 12:0 0 PM EST 03/30/2017 12:00 PM EST Narrative [facility] - 03/30/2017 12:00 PM EST Specimen requisition ordered. ??Separate Pathology report to follow Brant Chen MD PATHOLOGY/CYTOLOGY ORDERABLES Performing Organization Address [facility] [place] [address] * Specimen to Pathology (surgical or derm) (03/30/2017 11:51 AM EST) AP Specimen 03/30/2017 11:5 1 AM EST 03/30/2017 11:51 AM EST Narrative [facility] - 03/30/2017 11:51 AM EST Specimen requisition ordered. ??Separate Pathology report to follow Brant Chen MD PATHOLOGY/CYTOLOGY ORDERABLES Performing Organization Address [facility] Co de Phone Number [facility] [place] [phone] * Surgical Pathology Report (03/30/2017 11:50 AM EST) Final Diagnosis [id number] ? Location: [facility]; [facility]; A The signing pathologist has (i) examined the relevant preparation(s) for the specimen(s) and (ii) rendered or confirmed the diagnosis(es). . ?Surgical Pathology DIAGNOSIS A,B - See Synoptic C - Left breast, Deep/lateral margin re-excision - ?Benign fatty breast tissue. D - Left breast, Superficial margin re-excision - ?Benign fatty breast tissue. See Note Note - [place] ink (indicating additional cranial margin) is also present on this superficial margin re-excision. ---- Specimen Parts: ?? A - Left axilliary sentinel node B - Left breast partial mastectomy Specimen ? Procedure: ??Excision with image-guided localization ? Lymph Node Sampling: ?? [place] lymph node(s) ? Specimen Laterality: ?? Left [...] not present in specimen Lymph Nodes ? [place] Lymph Nodes: ?? [place] lymph node biopsy performed ? Number of [place] Nodes Examined: ?3 ? Number of Lymph [...] Chávez DO Verified: ??04/01/2017 ?Pathologist Performed at: ??-[facility] Dept. of Pathology, [place], [place] CLINICAL INFORMATION Specimen Submitted: A - [...] there are ??no close margins. per [facility] Radiology . Specimen Description: According [...] 0.8 x 0.4 x 0.4 cm. Color: [place] and yellow. Consistency: Soft. Location: Slices III and IV. Nearest Margin: 0.6 cm to the cranial margin. Other Margins: 0.8 cm to the deep margin, 1.0 cm to the superficial margin, ? > 2 cm from all other margins. OTHER Parenchyma: Predominately fatty with scant fibrous tissue. Wire/Clip: Biopsy marker clip identified within slice IV. SECTIONS/PROCESSI NG: (1) scheduling representative slice I, lateral margin; (2) slice III, lesion to cranial margin; (3-5) remainder of slice III; (6) slice IV, lesion to cranial margin (clip); (7-8) remainder of slice IV; (9) scheduling representative slice V; (10) scheduling representative slice X, medial margin. (R10) Ischemic [...] MD PATHOLOGY/CYTOLOGY ORDERABLES [facility] [place] [address] * Mammo Direct Digital Left (03/30/2017 9:15 [...] Routine documented in this encounter Care Teams Belt Maker Relationship Specialty Start Date End Date Ana Her MD [address] [place] [address] PCP - General 07/29/13 documented as of this encounter
--- OUTSIDE RECORDS SUMMARY | 2024-04-25 11:04 | XMS_ITS | Encounter Summary ---
[place] [address] Care Team Providers Care Transport Pilot Name Role Phone Ana Her MD Primary Care Provider [phone] Encounter Details Date Type Department Care Team (Late st Contact Info) Description 03/30/2017 11:19 AM EST Anesthesia [place] [address] Bridgette Mclaughlin MD Collins, Sarah J, SEED LABORATORY ASSISTANT [address] [place] [address] Anesthesia Record Procedure Summary Procedure Name Responsible [...] 0815; median cubital vein (antecubital fossa), right; [id number]-smmfdc catheter system; 20 gauge, 1 in length; [...] Bridgette Mclaughlin - 03/30/2017 2:13 PM EST [facility] Department of Anesthesiology Post-procedure Note Patient: Digna Olson Procedure Summary Date Anesthesia Start Anesthesia Stop Room / Location 03/30/17 1119 1239 [facility] OR 24 / MH MAIN OR [...] All Anesthesia Providers: Anesthesiologist: Bridgette Mclaughlin MD SEED LABORATORY ASSISTANT: Laura Koo CRNA Most Recent Vitals: 03/30/17 [...] risks discussed with patient. Plan discussed with SEED LABORATORY ASSISTANT. [facility] Staff Note documented in this encounter Plan [...] r documented in this encounter Care Teams Transport Pilot Relationship Specialty Start Date End Date Ana Her MD [facility] [address] [place] [address] PCP - General 07/29/13 documented as of this encounter
--- OUTSIDE RECORDS SUMMARY | 2024-04-25 11:04 | XMS_ITS | Encounter Summary ---
Author Organization [facility] Address [facility] [place] [address] Care Team Providers Care Special Forces Warrant Officer Name Role Phone Ana Her MD Primary Care Provider [phone] Encounter Details Date Type Department Care Team (Late st Contact Info) Description 09/03/2021 Ancillary Procedure Radiology Library at [facility] [place] [place] [address] Laura Will MD [facility] [place] [address] Social History Tobacco Use Types Packs/Day Years [...] CT Chest (09/03/2021 12:00 AM EDT) Narrative [facility] - 11/28/2021 1:22 PM EDT This exam is auto-finalizing. It's purpose is for storage only. Laura Will MD IMG FILM LIBRARY OR DERABLES Performing Organization Address City/State/[facility] Co de Phone Number [place], [place] documented in this encounter Visit Diagnoses Not on filedocumented in this encounter Care Teams Special Forces Warrant Officer Relationship Specialty Start Date End Date Ana Her MD [address] [facility] [address] [place] [address] PCP - General 07/29/13 documented as of this encounter
--- OUTSIDE RECORDS SUMMARY | 2024-04-25 11:04 | XMS_ITS | Encounter Summary ---
Author Organization [facility] [place] [address] Care Team Providers Care Wire Stitcher Name Role Phone Ana Her MD Primary Care Provider [phone] Reason for Visit * Reason Comments Advice Only BBR * Consultation (Routine) - Closed Specialty Diagnoses / Procedures Referred By Christiano hackett Referred To Contact Plastic Surgery Diagnoses 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, estrogen receptor positive Macromastia Jeanine Lobato APRN [facility] [place] [address] [facility] [address] [place] [address] Referral ID Status Reason Start Date Expiration Date V isits Requested Visits Authorized [id number] Closed Consult, Test & Treat 06/11/2021 06/11/2022 1 1 Encounter Details Date Type Department Care Team (Late st Contact Info) Description 07/09/2021 8:30 AM EST [place] [address] Med Hudsno MD [facility] [place] [address] Macromastia Social History Tobacco Use [...] physical with your primary care doctor and Deli Department Manager clearance Two Weeks prior to Surgery Do [...] Day of Surgery You will need a hearse driver. If you do not have a hearse driver, your surgery will be canceled. DO [...] For questions pertaining to your surgical date [phone] For nursing related questions [phone] On weekends, holidays or after office hours: Call [phone] and ask the tier lift truck operator to page the Plastic Surgery Resident dimensional inspector. documented in this encounter Progress Notes * Med Hudson MD - 07/09/2021 8:30 AM EST Plastic Surgery Consultation Note Mde Hudson MD. PCP: Ana Her MD Requesting [...] and was normal. This was performed at [facility]. She has completed a breast specific questionnaire: [...] None of the time Conservative Therapy Treatments: [facility] PLAST[facility] CONSERVATIVE THERAPY TREATMENTS 07/09/2021 [...] by Malika Chen MD at [facility] MAIN OR ??? PRO INTRAOP SENTINEL LYMPH ID W/DYE INJECTION Left 03/30/2017 INTRAOPERATIVE ID (MAPPING) SENTINEL LYMPH NODE,INCLUDES INJECTION (WRVU 2.5) performed by Malika Chen MD at [facility] MAIN OR ??? PRO MASTECTOMY PARTIAL Left 03/30/2017 MASTECTOMY PARTIAL (WRVU 10.13) performed by Malika Chen MD at [facility] MAIN OR Family History Problem [...] surgery is best done at a realistic fpc stable weight. We talked about the outpatient [...] revisions for scarring or asymmetry.) Garcia or [place] Pattern Incision: More scarring on breast, but [...] Timeframe: Elective Procedure: Bilateral breast reduction CPT: 08715 Surgical Technique: Garcia, Pedicle Surgical site: Breasts Side: Bilateral Anesthesia: General Follow up: 1 day for drain removal; 7-10 days for HCK PAT: H+P PCP, Cardiac clearance. Need to discontinue blood thinners pre-op? Xarelto documented in this encounter Plan of Treatment Not on file documented as of this encounter Visit Diagnoses Diagnosis Macromastia Hypertrophy of breast documented in this encounter Care Teams Wire Stitcher Relationship Specialty Start Date End Date Ana Her MD [address] [place] [address] PCP - General 07/29/13 documented as of this encounter
--- OUTSIDE RECORDS SUMMARY | 2024-04-25 11:04 | XMS_ITS | Encounter Summary ---
[place] [address] Care Team Providers Care Blindstitch Lapel Padder Name Role Phone Ana Her MD Primary Care Provider [phone] Encounter Details Date Type Department Care Team (Late st Contact Info) Description 04/09/2017 Abstract Radiation Oncology at [address] [phone] Maria A Antonio, RN Social History Tobacco [...] on filedocumented in this encounter Care Teams Blindstitch Lapel Padder Relationship Specialty Start Date End Date Ana Her MD [address] [place] [address] PCP - General 07/29/13 documented as of this encounter
--- OUTSIDE RECORDS SUMMARY | 2024-04-25 11:04 | XMS_ITS | Encounter Summary ---
Author Organization [facility] [place] [address] Care Team Providers Care Stave Mill Hand Name Role Phone Ana Her MD Primary Care Provider [phone] Encounter Details Date Type Department Care Team (Latest Contact Info) Description 05/22/2020 10:46 AM EST - 05/22/2020 11:59 PM [facility] Hospital Encounter Mammography/[place] [phone] Jeanine Lobato APRN [facility] [place] [address] Malignant neoplasm of lower-outer quadrant of left [...] mammogram documented in this encounter Care Teams Stave [place] Hand Relationship Specialty Start Date End Date Ana Her MD [facility] [address] [facility] [place] [address] PCP - General 07/29/13 documented as of this encounter
--- OUTSIDE RECORDS SUMMARY | 2024-04-25 11:04 | XMS_ITS | Encounter Summary ---
[place] [address] Care Team Providers Care Grain Processor Name Role Phone Ana Her MD Primary Care Provider [phone] Encounter Details Date Type Department Care Team (Late st Contact Info) Description 06/12/2021 Telephone [place] [phone] Chelsie Lauren Social History Tobacco Use Types [...] on filedocumented in this encounter Care Teams Grain Processor Relationship Specialty Start Date End Date Ana Her MD [address] [place] [address] PCP - General 07/29/13 documented as of this encounter
--- OUTSIDE RECORDS SUMMARY | 2024-04-25 11:04 | XMS_ITS | Encounter Summary ---
[place] [address] Care Team Providers Care Audio Visual Facilities Engineer Name Role Phone Ana Her MD Primary Care Provider Reason for Visit * Reason Comments Follow-up Encounter Details Date Type Department Care Team (Late st Contact Info) Description 11/15/2020 4:00 PM EDT Office Visit Hematology [place] [phone] Laura Joaquin PA Malignant neoplasm of lower-outer [...] ??Excision with image-guided localization ?Lymph Node Sampling: ??[place] lymph node(s) ?Specimen Laterality: ??Left Tumor ?Histologic [...] ??DCIS not present in specimen Lymph Nodes ?[place] Lymph Nodes: [place] lymph node biopsy performed ?Number of [place] Nodes Examined: ??3 ?Number of Lymph Node(s) [...] > A Fib. Cardiology at [facility]. S/P successful cardioversion May 2018. [...] GI Cancers [facility] Pager - [phone] documented in this encounter Plan of Treatment Not on file documented as of this encounter Visit Diagnoses Diagnosis 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, estrogen receptor positive documented in this encounter Care Teams Audio Visual Facilities Engineer Relationship Specialty Start Date End Date Ana Her MD [address] [place] [address] PCP - General 07/29/13 documented as of this encounter
--- OUTSIDE RECORDS SUMMARY | 2024-04-25 11:04 | XMS_ITS | Encounter Summary ---
[place] [address] Care Team Providers Care Insurance Sales Producer Name Role Phone Ana Her MD Primary Care Provider [phone] Encounter Details Date Type Department Care Team (Late st Contact Info) Description 05/19/2017 Telephone Hematology [place] [phone] Sandy Chapman Social History Tobacco Use Types [...] on filedocumented in this encounter Care Teams Insurance Sales Producer Relationship Specialty Start Date End Date Ana Her MD [address] [place] [address] PCP - General 07/29/13 documented as of this encounter
--- OUTSIDE RECORDS SUMMARY | 2024-04-25 11:04 | XMS_ITS | Encounter Summary ---
[place] [address] Care Team Providers Care Armament Mechanic Name Role Phone Ana Her MD Primary Care Provider [phone] Encounter Details Date Type Department Care Team (Late st Contact Info) Description 04/05/2018 Telephone [place] [phone] Adrianna Jones Social History Tobacco Use Types [...] Padgett. Patient advises she is admitted at [facility] for afib and is pending procedure etc. Patient will call to reschedule once she is discharged home. documented in this encounter Plan of Treatment Not on file documented as of this encounter Visit Diagnoses Not on filedocumented in this encounter Care Teams Armament Mechanic Relationship Specialty Start Date End Date Ana Her MD [address] [place] [address] PCP - General 07/29/13 documented as of this encounter
--- OUTSIDE RECORDS SUMMARY | 2024-04-25 11:04 | XMS_ITS | Encounter Summary ---
Author Organization [facility] [place] [address] Care Team Providers Care Tourism Radio Presenter Name Role Phone Ana Her MD Primary Care Provider [phone] Reason for Visit * Reason Comments Follow-up Encounter Details Date Type Department Care Team (Late st Contact Info) Description 05/31/2019 11:45 AM EST Office Visit [place] [phone] Ricky Lowry MD Malignant neoplasm of lower-outer [...] ??Excision with image-guided localization ?Lymph Node Sampling: ??[place] lymph node(s) ?Specimen Laterality: ??Left Tumor ?Histologic [...] ??DCIS not present in specimen Lymph Nodes ?[place] Lymph Nodes: [place] lymph node biopsy performed ?Number of [place] Nodes Examined: ??3 ?Number of Lymph Node(s) [...] Spinal stenosis > A Fib. Cardiology at [facility]. S/P successful cardioversion May [...] positive documented in this encounter Care Teams Tourism Radio Presenter Relationship Specialty Start Date End Date Ana Her MD [facility] [address] [facility] [address] [place] [address] PCP - General 07/29/13 documented as of this encounter
--- OUTSIDE RECORDS SUMMARY | 2024-04-25 11:04 | XMS_ITS | Encounter Summary ---
Author Organization [facility] [place] [address] Care Team Providers Care Waxer Operator Name Role Phone Ana Her MD Primary Care Provider [phone] Encounter Details Date Type Department Care Team (Late st Contact Info) Description 04/23/2017 Notes [place] [address] Marjorie Ariza Social History Tobacco Use Types [...] Marjorie Ariza - 04/23/2017 2:43 PM EST Fiction And Nonfiction Prose Writer Phys Assistant met with pt after consultation with medical [...] on filedocumented in this encounter Care Teams Waxer Operator Relationship Specialty Start Date End Date Ana Her MD [address] [facility] [address] [place] [address] PCP - General 07/29/13 documented as of this encounter
--- OUTSIDE RECORDS SUMMARY | 2024-04-25 11:04 | XMS_ITS | Encounter Summary ---
[place] [address] Care Team Providers Care Barn Manager Name Role Phone Ana Her MD Primary Care Provider [phone] 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 * Diagnostic Test (Routine) - Closed Specialty Diagnoses / Procedures Referred By Christiano hackett Referred To Contact Radiology Diagnoses 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, estrogen receptor positive Osteopenia of neck of femur, unspecified laterality care home current 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 Procedures DXA Central-Spine, Hip, And/Or Whole Body (Generic) Ricky Lowry MD [facility] DR HEMATOLOGY/[place] [address] [facility] Rad Xray [address] [place] [address] [place] [address] Referral ID Status Reason Start Date Expiration Date V isits Requested Visits Authorized [id number] Closed Specialty Service Requested 05/10/2018 05/10/2019 1 1 Reason for Visit * Reason Comments Follow-up Encounter Details Date Type Department Care Team (Late st Contact Info) Description 05/10/2018 2:45 PM EST Office Visit Hematology and Oncology at [facility] [place] [address] Ricky Lowry MD 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, estrogen receptor positive; Osteopenia of neck of femur, unspecified laterality; care home current 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 Social History [...] cancer cells with immunostaining) Stain intensity: Strong [place] immunoreactivity: Positive (>90% cancer cells with immunostaining) [...] ??Excision with image-guided localization ?Lymph Node Sampling: ??Stephen lymph node(s) ?Specimen Laterality: ??Left Tumor ?Histologic [...] ??DCIS not present in specimen Lymph Nodes ?Stephen Lymph Nodes: Stephen lymph node biopsy performed ?Number of Stephen Nodes Examined: ??3 ?Number of Lymph Node(s) [...] at [facility]. Most recent DEXA scan was last year at [facility]. There is no history of [...] is planned for later this week (at [facility]/[place]). No new problems with VELEZ, diplopia, cough, [...] chemotherapy. TACHO. Renewal of anastrazole sent. Given [facility] brochure to share with cousins. All [...] BMD measurements and plots are available in ELong[employer] under the imaging tab. Paper copies will be sent to providers without [employer] access. If you have received this report without the data sheet and do not have access to [employer], please contact Radiology Zipper Sewing Machine Operator at [phone] Thursday thru Thursday 8am-4pm. Thank you for [...] BMD measurements and plots are available in [email or web address] the imaging tab. Paper copies will be sent to providers without [employer] access.If you have received this report without the data sheet and do not haveaccess to [employer], please contact Radiology Zipper Sewing Machine Operator at [phone] Thursday thruFriday 8am-4pm. Thank you for letting us participate in the care of this patient. Forquestions regarding this report, please contact the number below. Electronically signed by: Khushi [facility] ([phone]),at 11/10/2018 10:55 AM Ricky Lowry MD IMG DEXA ORDERABLES documented in this encounter Visit Diagnoses Diagnosis 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, estrogen receptor positive Osteopenia of neck of femur, unspecified laterality care home current 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 Use 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s 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, estrogen receptor positive Osteopenia of neck of femur, unspecified laterality care home current 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 Use 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s documented in this encounter Care Teams Barn Manager Relationship Specialty Start Date End Date Ana Her MD [address] [place] [address] PCP - General 07/29/13 documented as of this encounter
--- OUTSIDE RECORDS SUMMARY | 2024-04-25 11:04 | XMS_ITS | Encounter Summary ---
Author Organization [facility] Address [facility] [place] [address] Care Team Providers Care Store Planner Name Role Phone Ana Her MD Primary Care Provider [phone] Reason for Visit * Reason Comments Radiation Consult * Consultation (Routine) - Closed Specialty Diagnoses / Procedures Referred By Christiano hackett Referred To Contact Radiation Oncology Diagnoses Breast cancer Malika Chen MD [facility] [address] Stj Rad Onc Office [address] [place] [phone] Referral ID Status Reason Start Date Expiration Date Visits Re quested Visits Authorized [id number] Closed 03/17/2017 03/17/2018 1 1 Encounter Details Date Type Department Care Team (Late st Contact Info) Description 04/13/2017 10:00 AM EST Office Visit Radiation Oncology at [address] [address] Faye Velez MD [facility] [place] [address] Malignant neoplasm of left female breast, unspecified [...] cm from nipple. Path: Invasive mucinous ca, ER+AR+, Her2 FISH neg. 03/03/[address] [...] she is being evaluated for afib @ [facility]. 04/15/17; has [...] 6.43) performed by Malika Chen MD at [facility] MAIN OR ??? PRO INTRAOP SENTINEL LYMPH ID W/DYE INJECTION Left 03/30/2017 INTRAOPERATIVE ID (MAPPING) SENTINEL LYMPH NODE,INCLUDES INJECTION (WRVU 2.5) performed by Malika Chen MD at [facility] MAIN OR ??? PRO MASTECTOMY, PARTIAL Left 03/30/2017 MASTECTOMY PARTIAL (WRVU 10.13) performed by Malika Chen MD at [facility] MAIN OR Your Medications These changes [...] A: Breast ca, L, mucinous, gr 2, ER+AR+, Her2 neg, s/p lumpectomy & SNB, pT1b [...] treated breast; cough; shortness of breath; tiredness. Late/longterm side effects to breast discussed include: Treated [...] breast documented in this encounter Care Teams Store Planner Relationship Specialty Start Date End Date Ana Her MD [address] [place] [address] PCP - General 07/29/13 documented as of this encounter
--- OUTSIDE RECORDS SUMMARY | 2024-04-25 11:04 | XMS_ITS | Encounter Summary ---
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 nursing current 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 Procedures DXA Central Spine, Hip, and/or Whole Body (Generic) Ricky Lowry MD [facility] DR HEMATOLOGY/[place] [address] [facility] Rad Xray [address] [place] [address] [place] [address] Referral ID Status Reason Start Date Expiration Date V isits Requested Visits Authorized [id number] Closed Specialty Service Requested 05/22/2020 11/19/2021 1 1 Encounter Details Date Type Department Care Team (Late st Contact Info) Description 05/22/2020 1:15 PM EST Office Visit Hematology and Oncology at [facility] [address] Ricky Lowry MD 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, estrogen receptor positive; Osteopenia of neck of femur, unspecified laterality; 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 Cardiology at [facility]. S/P successful cardioversion May 2018. DEXA scan [...] BMD measurements and plots are available in [employer] under the imaging tab. Paper copies will be sent to providers without [employer] access. If you have received this report without the data sheet and do not have access to [employer], please contact Radiology [facility] at [phone] Thursday thru Thursday 8am-4pm. Thank you for letting us participate in the care of this patient. ??If you are a health care provider and have any questions regarding this report, please contact the number below. ??For patients who have questions please contact the health direct care staffer that requested your imaging first. ? Electronically signed by: Nat Epperson MD, [facility] ([phone]), at 11/19/2020 1:09 PM Narrative 11/19/2020 1:09 [...] BMD measurements and plots are available in [email or web address] the imaging tab. Paper copies will be sent to providers without [employer] access.If you have received this report without the data sheet and do not haveaccess to [employer], please contact Radiology Sharepoint Developer at [phone] Thursday thruFriday 8am-4pm. Thank you for letting us participate in the care of this patient. If youare a health care provider and have any questions regarding this report,please contact the number below. For patients who have questions please contactthe health direct care staffer that requested your imaging first. 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
--- OUTSIDE RECORDS SUMMARY | 2024-04-25 11:04 | XMS_ITS | Encounter Summary ---
Author Organization [facility] [place] [address] Care Team Providers Care Warehouse Director Name Role Phone Ana Her MD Primary Care Provider [phone] Encounter Details Date Type Department Care Team (Latest Contact Info) Description 03/30/2017 8:30 AM [facility] Hospital [place] [address] Malika Chen MD [facility] [place] [address] Malignant neoplasm of upper-outer quadrant of left [...] mg documented in this encounter Care Teams Warehouse Director Relationship Specialty Start Date End Date Ana Her MD [address] [place] [address] PCP - General 07/29/13 documented as of this encounter
--- OUTSIDE RECORDS SUMMARY | 2024-04-25 11:04 | XMS_ITS | Encounter Summary ---
[place] [address] Care Team Providers Care Agricultural Scientist Name Role Phone Ana Her MD Primary Care Provider [phone] Encounter Details Date Type Department Care Team (Late st Contact Info) Description 06/12/2021 Telephone [place] [address] Chelsie Lauren Social History Tobacco Use Types [...] Date Ana Her MD [address] [place] [address] PCP - General 07/29/13 documented as of this encounter
--- OUTSIDE RECORDS SUMMARY | 2024-04-25 11:04 | XMS_ITS | Encounter Summary ---
Author Organization [facility] [place] [address] Care Team Providers Care Stockroom Helper Name Role Phone Ana Her MD Primary Care Provider [phone] Reason for Visit * Reason Comments Follow-up Encounter Details Date Type Department Care Team (Late st Contact Info) Description 10/23/2017 11:00 AM EDT Office Visit Hematology [place] [address] Mayra Page APRN [facility] [place] [address] Malignant neoplasm of lower-outer quadrant of left [...] this encounter Progress Notes * Mayra Page, NEON SIGN MAKER - 10/23/2017 11:00 AM EDT Digna Olson [...] cancer cells with immunostaining) Stain intensity: Strong [place] immunoreactivity: Positive (>90% cancer cells with immunostaining) [...] ??Excision with image-guided localization ?Lymph Node Sampling: ??[place] lymph node(s) ?Specimen Laterality: ??Left Tumor ?Histologic [...] ??DCIS not present in specimen Lymph Nodes ?[place] Lymph Nodes: [place] lymph node biopsy performed ?Number of [place] Nodes Examined: ??3 ?Number of Lymph Node(s) Examined (sentinel and nonsentinel): 3 ?Lymph Node Involvement: None identified Stage (pTNM) ?Pathological Stage: ?? pT1b pN0 PMH: Past Medical History: Diagnosis Date ??? Breast cancer ??? Fracture of tibia 12/2016 left tibial plateau ??? GERD (gastroesophageal reflux disease) ??? H/O non-insulin dependent diabetes mellitus ??? Spinal stenosis Most recent DEXA scan was 10/28/16 at [facility]. There is no history of [...] positive documented in this encounter Care Teams Stockroom Helper Relationship Specialty Start Date End Date Ana Her MD [address] [place] [address] PCP - General 07/29/13 documented as of this encounter
--- OUTSIDE RECORDS SUMMARY | 2024-04-25 11:04 | XMS_ITS | Encounter Summary ---
[place] [address] Care Team Providers Care Cad Cam Programmer Name Role Phone Ana Her MD Primary Care Provider [phone] Encounter Details Date Type Department Care Team (Late st Contact Info) Description 05/06/2017 Telephone Radiation Oncology at [address] [address] Maria A Antonio RN Social [...] on filedocumented in this encounter Care Teams Cad Cam Programmer Relationship Specialty Start Date End Date Ana Her MD [address] [facility] [place] [address] PCP - General 07/29/13 documented as of this encounter
--- OUTSIDE RECORDS SUMMARY | 2024-04-25 11:04 | XMS_ITS | Encounter Summary ---
Author Organization [facility] [place] [address] Care Team Providers Care Career Professional Name Role Phone Ana Her MD Primary Care Provider [phone] Reason for Visit * Reason Comments Follow Up Surgery Encounter Details Date Type Department Care Team (Late st Contact Info) Description 07/13/2017 1:30 PM EDT Office [place] [phone] Hiral Padgett, WENDY History of breast cancer [...] with image-guided localization ?Lymph Node Sampling: ?? [place] lymph node(s) ?Specimen Laterality: ?? Left Tumor [...] ?DCIS not present in specimen Lymph Nodes ?[place] Lymph Nodes: ?? [place] lymph node biopsy performed ?Number of [place] Nodes Examined: ?3 ?Number of Lymph Node(s) [...] breast documented in this encounter Care Teams Career Professional Relationship Specialty Start Date End Date Ana Her MD [facility] [address] [place] [address] PCP - General 07/29/13 documented as of this encounter
--- OUTSIDE RECORDS SUMMARY | 2024-04-25 11:04 | XMS_ITS | Encounter Summary ---
Author Organization [facility] [place] [address] Care Team Providers Care Flame Hardening Machine Setter Name Role Phone Ana Her MD Primary Care Provider [phone] 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 * Diagnostic Test (Routine) - Closed Specialty Diagnoses / Procedures Referred By Contac t Referred To Contact Radiology Diagnoses 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, estrogen receptor positive Osteopenia of neck of femur, unspecified laterality penitentiary current 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 Procedures DXA Central Spine, Hip, and/or Whole Body (Generic) Ricky Lowry MD [facility] HEMATOLOGY/[place] [address] [facility] Rad Xray [address] [place] [address] [place] [address] Referral ID Status Reason Start Date Expiration Date V isits Requested Visits Authorized [id number] Closed Specialty Service Requested 05/22/2020 11/19/2021 1 1 Reason for Visit * Diagnostic Test (Routine) - Closed Specialty Diagnoses / Procedures Referred By Contac t Referred To Contact Radiology Diagnoses 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, estrogen receptor positive Osteopenia of neck of femur, unspecified laterality 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 Procedures DXA Central Spine, Hip, and/or Whole Body (Generic) Ricky Lowry MD [facility] HEMATOLOGY/[place] [address] [facility] Rad Xray [address] [place] [address] Dr [address] [place]iscoe [address] Referral ID Status Reason Start Date Expiration Date V isits Requested Visits Authorized [id number] Closed Specialty Service Requested 05/22/2020 11/19/2021 1 1 Encounter Details Date Type Department Care Team (Latest Contact Info) Description 11/15/2020 2:25 PM EDT - 11/15/2020 11:59 PM EDT Hospital Encounter XRay at [address] [place] [address] Ricky Lowry MD 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, estrogen receptor positive; Osteopenia of neck of femur, unspecified laterality; penitentiary current 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 Paper copies will be sent to providers without E- access. If you have received this report without the data sheet and do not have access to [employer], please contact Radiology Professional Soccer Player at [phone] Thursday thru Thursday 8am-4pm. Thank you for letting us participate in the care of this patient. ??If you are a health care provider and have any questions regarding this report, please contact the number below. ??For patients who have questions please contact the health family day care worker that requested your imaging first. ? Electronically signed by: Nat Epperson MD, [facility] ([phone]), at 11/19/2020 1:09 PM Narrative 11/19/2020 1:09 [...] BMD measurements and plots are available in [employer] the imaging tab. Paper copies will be sent to providers without - access.If you have received this report without the data sheet and do not haveaccess to [facility], please contact Radiology Professional Soccer Player at [phone] Thursday thrrid 8am-4pm. Thank you for letting us participate in the care of this patient. If youare a health care provider and have any questions regarding this report,please contact the number below. For patients who have questions please contactthe health family day care worker that requested your imaging first. Electronically signed by: Nat Epperson MD, [facility]([phone]), at 11/19/2020 1:09 PM Ricky Lowry MD IMG DEXA ORDERABLES documented in this encounter Visit Diagnoses Diagnosis 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, estrogen receptor positive Osteopenia of neck of femur, unspecified laterality penitentiary current 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 Use 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s documented in this encounter Care Teams Flame Hardening Machine Setter Relationship Specialty Start Date End Date Ana Her MD [address] [place] [address] PCP - General 07/29/13 documented as of this encounter
--- OUTSIDE RECORDS SUMMARY | 2024-04-25 11:04 | XMS_ITS | Encounter Summary ---
[place] [address] Care Team Providers Care Toolmaker Grade Three Name Role Phone Ana Her MD Primary Care Provider [phone] Encounter Details Date Type Department Care Team (Late st Contact Info) Description 03/18/2017 Telephone [place] [phone] Bryanna Marsh RN Social History Tobacco Use [...] notes she had a colonoscopy done at [facility] and developed atrial fibrillation; she has been started on blood thinners. She was just discharged from the [facility] hospital, and called us [...] give Digna a call her number is [phone]. The below is from Dr. Chen visit [...] Date Ana Her MD [address] [place] [address] PCP - General 07/29/13 documented as of this encounter
--- OUTSIDE RECORDS SUMMARY | 2024-04-25 11:04 | XMS_ITS | Encounter Summary ---
[place] [address] Care Team Providers Care Hospice/Home Health Aide Name Role Phone Ana Her MD Primary Care Provider [phone] Reason for Visit * Reason Comments Follow-up Encounter Details Date Type Department Care Team (Late st Contact Info) Description 05/22/2020 11:40 AM EST Office [place] [address] Jeanine Lobato APRN [facility] [place] [address] Encounter for follow-up surveillance of breast cancer; [...] was obtained which revealed IDC which is ER/NM positive, Her2 negative. Alma Delia opted against [...] ??Excision with image-guided localization ?Lymph Node Sampling: ??[place] lymph node(s) ?Specimen Laterality: ??Left Tumor ?Histologic [...] ??DCIS not present in specimen Lymph Nodes ?[place] Lymph Nodes: [place] lymph node biopsy performed ?Number of [place] Nodes Examined: ??3 ?Number of Lymph Node(s) [...] (Dario): Whipple surgery Pancreatitis (1) Maternal Cousin ([place]) Prostate Cancer (1) Maternal Cousin (Kofi) Rectal Cancer (1) Maternal Grandfather: At a young age Negative family history of: Ovarian Cancer Social Hx: She continues to live alone. She has a son that lives about 20 minutes away. She and herex- speak almost daily. He lives in [place] and is beginning to show early signs [...] situation. Results: Imaging performed (bilateral mammogram) at [facility] today shows no evidence of malignancy, BIRADS [...] available at [employer] ([employer]) and [employer]. All questions were answered to the patient's satisfaction and they state understanding and agreement with today's treatment plan. They are encouraged to follow up sooner if they develop any new or concerning symptoms. Jeanine Lobato APRN Surgical Oncology P [phone] F [phone] [facility] documented in this encounter Plan of [...] hospice that requested your imaging first. ? Electronically signed by: Digna Noel MD, [facility] ([phone]), at 06/11/2021 9:20 AM Jeanine Lobato APRN [...] mammogram documented in this encounter Care Teams Hospice/Home Health Aide Relationship Specialty Start Date End Date Ana Her MD [facility] [address] [place] [address] PCP - General 07/29/13 documented as of this encounter
--- OUTSIDE RECORDS SUMMARY | 2024-04-25 11:04 | XMS_ITS | Encounter Summary ---
Author Organization [facility] [place] [address] Care Team Providers Care Patent Drafter Name Role Phone Ana Her MD Primary Care Provider [phone] Encounter Details Date Type Department Care Team (Late st Contact Info) Description 03/19/2017 Telephone [place] [address] Malika Chen MD [facility] DR [place] [address] Social History Tobacco Use Types Packs/Day Years [...] no unexpected bleeding. Surgery is scheduled in [facility]. documented in this encounter Plan of Treatment Not on file documented as of this encounter Visit Diagnoses Not on filedocumented in this encounter Care Teams Patent Drafter Relationship Specialty Start Date End Date Ana Her MD [address] [facility] 1 [place] [address] PCP - General 07/29/13 documented as of this encounter
--- OUTSIDE RECORDS SUMMARY | 2024-04-25 11:05 | XMS_ITS | Encounter Summary ---
Author Organization [facility] Address [address] [place] [address] Care Team Providers Care Medical Secretary Teacher Name Role Phone Unknown, Provider MD Primary Care Provider Unava ilable Encounter Details Date Type Department Care Team (Late st Contact Info) Description 11/19/2023 Lab Requisition [facility] Pathology & Laboratory Medicine - [facility] [address] [place], [place] [address] Outr Resulting Lab, Provider Social History Tobacco [...] 352 mg/dL 11/20/2023 9:45 EDT [facility] Blood VENOUS BLOOD / Unknown 11/19/2023 6:05 EDT 11/19/2023 17:32 EDT us Provider Outr Resulting Lab CHEMISTRY & BLOOD GA S ORDERABLES Final Result [facility] [address] [place], [place] [address] documented in this encounter Visit Diagnoses Not on filedocumented in this encounter Care Teams Medical Secretary Teacher Relationship Specialty Start Date End Date Unknown, Provider, PCP - General 01/13/14 documented as of this encounter
--- OUTSIDE RECORDS SUMMARY | 2024-04-25 11:05 | XMS_ITS | Referral Summary ---
Author Organization [facility] Address [address] [place] [address] Care Team Providers Care Chief Executive Name Role Phone Unknown, Provider MD Primary Care Provider Unava ilable Social History Tobacco Use Types Packs/Day Years Used Date Smoking Tobacco: Never Assessed Comments Unknown Sex and Gender Information Value Date Recorded Sex Assigned at Not on file Legal Sex Female 9:32 EDT Gender Identity Not on file Sexual Orientation Not on file Plan of Treatment Not on file Care Teams Chief Executive Relationship Specialty Start Date End Date Unknown, Provider, PCP - General 01/13/14
--- OUTSIDE RECORDS SUMMARY | 2024-04-25 11:05 | XMS_ITS | Encounter Summary ---
Author Organization [facility] Address [facility] [place] [address] Care Team Providers Care Civil Engineer Name Role Phone Unavailable Primary Care Provider Unavailabl e Encounter Details Date Type Department Care Team (Latest Contact Info) Description 01/29/2013 - 01/29/2013 11:59 PM EDT Hospital Encounter Radiology Library at [facility] [place] [address] Jackie Cisneros APRN [facility] [place] [address] [place] [address] Discharge Disposition: Home Social History Tobacco Use [...] Only Mammo (01/29/2013 12:00 AM EDT) Narrative [facility] - 02/23/2017 3:26 PM EDT This exam is for storage only and is auto-finalizing. Jackie Cisneros APRN IMG FILM LIBRARY ORD ERABLES [place] Sethi documented in this encounter Visit Diagnoses Not on filedocumented in this encounter
--- OUTSIDE RECORDS SUMMARY | 2024-04-25 11:05 | XMS_ITS | Patient Health Record ---
Author Organization [facility] Address [address] [place] [address] Care Team Providers Care Contract Loader Name Role Phone Non Compass, Provider Primary [...] Medicare [address] [place] [id number] Digna Olson Self - patient is the insured [facility] Medicare Plan [address] [place], [place] [id number] Digna Olson Self - patient is the insured Medical (General) History Medical History History ICD Code Atrial fibrillation Hypertension Hypothyroidism Non insulin-dependent diabetes
--- OUTSIDE RECORDS SUMMARY | 2024-04-25 11:05 | XMS_ITS | Encounter Summary ---
Author Organization [facility] Address [address] [place] [address] Care Team Providers Care School Bus Aide Name Role Phone Unknown, Provider MD Primary Care Provider Unava ilable Encounter Details Date Type Department Care Team (Late st Contact Info) Description 10/26/2022 Lab Requisition [facility] Pathology & Laboratory Medicine - [facility] [address] [place] [address] Outr Resulting Lab, Provider Social History Tobacco [...] Neg and Giardia Antigen Neg 13:48 EDT [facility] Feces SPECIMEN FROM RECTUM / Unknown 10/25/2022 15:00 EDT 10/26/2022 15:25 EDT us Provider Outr Resulting Lab MICROBIOLOGY - GENER AL ORDERABLES Final Result [facility] [address] [place] [address] * FECAL BACTERIAL PATHOGENS BY PCR (10/25/2022 15:00 EDT) Salmonella PCR Negative Negative 10/26/2022 19:17 EDT [facility] Shigella/Enteroin vasive E. coli Negative Negative 10/26/2022 19:17 EDT [facility] HN LAB CAMPYLOBACTER PCR Negative Negative 10/26/2022 19:17 EDT [facility] Shiga Toxin PCR Negative Negative 19:17 EDT [facility] Feces SPECIMEN FROM RECTUM / Unknown 10/25/2022 15:00 EDT 10/26/2022 15:25 EDT us Provider Outr Resulting Lab MICROBIOLOGY - GENER AL ORDERABLES Final Result Performing Organization Address [facility] Co de Phone Number [facility] [address] [place] [address] * OVA/PARASITE EXAM (10/25/2022 15:00 EDT) Parasite No ova and parasites seen. 10/28/2022 15:08 EDT [facility] Feces SPECIMEN FROM RECTUM / Unknown 10/25/2022 15:00 EDT 10/26/2022 15:25 EDT Narrative [facility] - 10/28/2022 15:08 EDT (If Cryptosporidium, Cyclospora, or Microsporidium are suspected, specific tests must be requested.) Single negative specimen does not rule out the possibility of a parasitic infection. us Provider Outr Resulting Lab MICROBIOLOGY - GENER AL ORDERABLES Final Result Performing Organization Address City/[facility]/ZIP Co de Phone Number [facility] [address] [place] [address] documented in this encounter Visit Diagnoses Not on filedocumented in this encounter Care Teams School Bus Aide Relationship Specialty Start Date End Date Unknown, Provider, PCP - General 9/12/14 documented as of this encounter
--- OUTSIDE RECORDS SUMMARY | 2024-04-25 11:05 | XMS_ITS | Encounter Summary ---
Author Organization [facility] Address [address] [place] [address] Care Team Providers Care Research Editor Name Role Phone Unknown, Provider Primary Care Provider Unava ilable Encounter Details Date Type Department Care Team (Late st Contact Info) Description 01/20/2020 Lab Requisition [facility] Pathology & Laboratory Medicine - [facility] [address] [place] [address] Outr Resulting Lab, Provider Social History Tobacco [...] rt-PCR Result NEGATIVE Negative 01/21/2020 16:10 EDT [facility] Comment: 2019-novel Coronavirus (2019-nCoV) [...] in accordance with CLIA regulations, [employer] (CAP) guidelines (Jul 21, 2019), and FDA guidance (Jul 02, 2019). This test is only for use under the Food and Drug Administration's Emergency Use Authorization. Swab ENTIRE NASOPHARYNX / Unknown 01/20/2020 10:30 EDT 01/20/2020 15:35 EDT us Provider Outr Resulting Lab MICROBIOLOGY - GENER AL ORDERABLES Final Result Performing Organization Address City/State/[facility] Co de Phone Number [facility] [place], [place] * COVID-19 TESTING (01/20/2020 10:30 EDT) COVID-19 rt-PCR Result NEGATIVE Negative 01/21/2020 17:21 EDT [facility] Comment: 2019-novel Coronavirus (2019-nCoV) [...] in accordance with CLIA regulations, [employer] (CAP) guidelines (Jul 21, 2019), and FDA guidance (Jul 02, 2019). This test is only for use under the Food and Drug Administration's Emergency Use Authorization. Performing Lab [facility] 01/21/2020 17:21 EDT [facility] Swab 01/20/2020 10:3 0 EDT 01/20/2020 15:35 EDT us Provider Outr Resulting Lab MICROBIOLOGY - GENER AL ORDERABLES Final Result [facility] [address] [place] [address] [facility] [place], [place] documented in this encounter Visit Diagnoses Not on filedocumented in this encounter Care Teams Research Editor Relationship Specialty Start Date End Date Unknown, Provider, PCP - General 01/13/14 documented as of this encounter
--- OUTSIDE RECORDS SUMMARY | 2024-04-25 11:05 | XMS_ITS | Encounter Summary ---
Author Organization [facility] Address [facility] [place] [address] Care Team Providers Care Shaper And Presser Name Role Phone Ana Her MD Primary Care Provider [phone] Encounter Details Date Type Department Care Team (Latest Contact Info) Description 10/28/2016 - 10/28/2016 11:59 PM EDT Hospital Encounter Radiology Library at [facility] [place] [address] Ricky Lowry MD Discharge Disposition: Home Social [...] DXA Images (10/28/2016 12:00 AM EDT) Narrative [facility] - 04/24/2017 2:13 PM EST This exam is for storage only and is auto-finalizing. Ricky Lowry MD IMG FILM LIBRARY ORD ERABLES Performing Organization Address City/State/[facility] Co de Phone Number [place], [place] documented in this encounter Visit Diagnoses Not on filedocumented in this encounter Care Teams Shaper And Presser Relationship Specialty Start Date End Date Ana Her MD [address] [place] [address] PCP - General 07/29/13 documented as of this encounter
--- OUTSIDE RECORDS SUMMARY | 2024-04-25 11:05 | XMS_ITS | Encounter Summary ---
Author Organization [facility] Address [facility] [place] [address] Care Team Providers Care Sprue Cutting Press Operator Name Role Phone Unavailable Primary Care Provider Unavailabl e Encounter Details Date Type Department Care Team (Latest Contact Info) Description 03/19/2006 - 03/19/2006 11:59 PM EST Hospital Encounter Radiology Library at [place] [address] Jackie Cisneros APRN [employer] [place] [address] [place] [address] Discharge Disposition: Home Social History Tobacco Use [...] is for storage only and is auto-finalizing. aJckie Cisneros APRN IMG FILM LIBRARY ORD ERABLES DH NADINE Sethi documented in this encounter Visit Diagnoses Not on filedocumented in this encounter
--- OUTSIDE RECORDS SUMMARY | 2024-04-25 11:05 | XMS_ITS | Encounter Summary ---
Author Organization [facility] Address [facility] [place] [address] Care Team Providers Care Jig Bore Operator Name Role Phone Ana Her MD Primary Care Provider [phone] Encounter Details Date Type Department Care Team (Latest Contact Info) Description 02/23/2017 3:50 PM EDT - 02/23/2017 11:59 PM EDT Hospital Encounter Radiology Library at [facility] [place] [phone] Jackie Cisneros APRN [address] [place] [address] Left breast mass Discharge Disposition: Home Social [...] recommended. Please note: The interpretation of the [facility] Breast Imaging Radiologist subspecialist may differ from the original radiologists interpretation. This is usually not due to a deficiency of the original interpreting radiologist, rather due to the greater skill level afforded by sub-specialization in the field and/or reasonable variations in interpretations. If you have a concern regarding the D-H interpretation you may contact the [facility] Breast Digital Printer Office at . I have personally reviewed [...] the care of this patient. STUDIES FROM: [facility] DATES: Screening mammogram 02/12/2017, diagnostic [...] alter the care of thispatient. STUDIES FROM: [facility] DATES: Screening mammogram 02/12/2017, diagnostic [...] recommended. Please note: The interpretation of the [facility] BreastImaging Radiologist subspecialist may differ from the original radiologists interpretation. This is usually not due to a deficiency of the original interpreting radiologist, rather due to the greater skill level affordedby sub-specialization in the field and/or reasonable variations ininterpretations. If you have a concern regarding the D-H interpretation you may [facility] at . I have personally reviewed the image(s) and the residents interpretationand agree with the findings, ROBERT THOMPSON at 02/24/2017 8:41 AM 8:41 AM Jackie Cisneros WENDY IMG OUTSIDE INTERPRE TATION ORDERABLES documented in this encounter Visit Diagnoses Diagnosis Left breast mass Lump or mass in breast documented in this encounter Care Teams Jig Bore Operator Relationship Specialty Start Date End Date Ana Her MD [address] [place] [address] PCP - General 07/29/13 documented as of this encounter
--- OUTSIDE RECORDS SUMMARY | 2024-04-25 11:05 | XMS_ITS | Encounter Summary ---
Author Organization [facility] [place] [address] Care Team Providers Care Utility Mechanic Supervisor Name Role Phone Ana Her MD Primary Care Provider [phone] Encounter Details Date Type Department Care Team (Late st Contact Info) Description 08/16/2014 Orders Only Functional [facility] at [facility] [address] [place] [address] Khari Martínez MD Social History Tobacco Use [...] on filedocumented in this encounter Care Teams Utility Mechanic Supervisor Relationship Specialty Start Date End Date Ana Her MD [facility] [address] [facility] [address] [place] [address] PCP - General 07/29/13 documented as of this encounter
--- OUTSIDE RECORDS SUMMARY | 2024-04-25 11:05 | XMS_ITS | Clinical Summary ---
Author Organization [facility] Address [address] [place] [address] Care Team Providers Care Real Estate Director Name Role Phone Unknown, Provider MD Primary [...] - 1-dose 75+ series) 2020 COVID-19 Vaccine (2023- season) 2024 Care Teams Real Estate Director Relationship Specialty Start Date End Date Unknown, Provider, PCP - General 01/13/14
--- OUTSIDE RECORDS SUMMARY | 2024-04-25 11:05 | XMS_ITS | Encounter Summary ---
Author Organization [facility] Address [place] [address] Care Team Providers Care Service Secretary Name Role Phone Unavailable Primary Care Provider Unavailabl e Encounter Details Date Type Department Care Team (Latest Contact Info) Description 12/19/2009 - 12/19/2009 11:59 PM EDT Hospital Encounter Radiology Library at [facility] [address] Jackie Cisneros APRN [facility] [place] [address] [place] [address] Discharge Disposition: Home Social History Tobacco Use [...] Only Mammo (12/19/2009 12:00 AM EDT) Narrative [facility] - 02/23/2017 3:29 PM EDT This exam is for storage only and is auto-finalizing. Jackie Cisneros APRN IMG FILM LIBRARY ORD ERABLES NADINE Sethi documented in this encounter Visit Diagnoses Not on filedocumented in this encounter
--- OUTSIDE RECORDS SUMMARY | 2024-04-25 11:05 | XMS_ITS | Encounter Summary ---
Author Organization [facility] Address [facility] [place] [address] Care Team Providers Care Field Counsel Name Role Phone Ana eHr MD Primary Care Provider [phone] Encounter Details Date Type Department Care Team (Latest Contact Info) Description 02/12/2017 - 02/12/2017 11:59 PM EDT Hospital Encounter Radiology Library [place] [address] Maryam Yee MD [facility] [place] [address] Screening breast examination Discharge Disposition: Home Social [...] Only Mammo (02/12/2017 12:00 AM EDT) Narrative [facility] - 02/19/2017 1:47 PM EDT This exam is for storage only and is auto-finalizing. Maryam Yee MD IMG FILM LIBRARY O RDERABLES Performing Organization Address City/State/[facility] Co de Phone Number [place], [place] documented in this encounter Visit Diagnoses Diagnosis Screening breast examination Other screening breast examination documented in this encounter Care Teams Field Counsel Relationship Specialty Start Date End Date Ana Her MD [address] [place] [address] PCP - General 07/29/13 documented as of this encounter
--- OUTSIDE RECORDS SUMMARY | 2024-04-25 11:05 | XMS_ITS | Encounter Summary ---
Author Organization [facility] Address [facility] [place] [address] Care Team Providers Care Engraver Wood Name Role Phone Unavailable Primary Care Provider Unavailabl e Encounter Details Date Type Department Care Team (Latest Contact Info) Description 11/12/2007 - 11/12/2007 11:59 PM EDT Hospital Encounter Radiology Library at [facility] [place] [address] Jackie Cisneros APRN [facility] [place] [address] [place] [address] Discharge Disposition: Home Social History Tobacco Use [...] Only Mammo (11/12/2007 12:00 AM EDT) Narrative [facility] - 02/23/2017 3:31 PM EDT This exam is for storage only and is auto-finalizing. Jackie Cisneros APRN IMG FILM LIBRARY ORD ERABLES NADINE Sethi documented in this encounter Visit Diagnoses Not on filedocumented in this encounter
--- OUTSIDE RECORDS SUMMARY | 2024-04-25 11:05 | XMS_ITS | Encounter Summary ---
[place] [address] Care Team Providers Care Constitutional Law Professor Name Role Phone Ana Her MD Primary Care Provider [phone] Encounter Details Date Type Department Care Team (Late st Contact Info) Description 02/27/2017 Telephone [place]ematology [place] [phone] Argentina Sanchez RN Social History Tobacco Use [...] a 71 y.o. 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 Alma Delia sounds positive and has support. She will have someone accompany her to appointments. She appears to be coping well but is anxious to meet with a breast surgeon to determine a treatment plan. Alma Delia have a bone SPECT done 1-2 months ago at [facility] and her doctor there questioned [...] for her review (a link to the [facility] Early Stage Breast Cancer program). The [...] on filedocumented in this encounter Care Teams Constitutional Law Professor Relationship Specialty Start Date End Date Ana Her MD [address] [place] [address] PCP - General 07/29/13 documented as of this encounter
--- OUTSIDE RECORDS SUMMARY | 2024-04-25 11:05 | XMS_ITS | Encounter Summary ---
Author Organization [facility] [place] [address] Care Team Providers Care Mushroom Laborer Name Role Phone Ana Her MD Primary Care Provider [phone] Encounter Details Date Type Department Care Team (Latest Contact Info) Description 02/17/2017 12:15 AM EDT - 02/17/2017 11:59 PM EDT Hospital Encounter Radiology Library at [facility] [place] [address] Maryam Yee MD [facility] [place] [address] Screening breast examination Discharge Disposition: Home Social [...] Only Mammo (02/17/2017 12:15 AM EDT) Narrative [facility] - 02/19/2017 2:01 PM EDT This exam is for storage only and is auto-finalizing. Maryam Yee MD IMG FILM LIBRARY O RDERABLES [place], [place] documented in this encounter Visit Diagnoses Diagnosis Screening breast examination Other screening breast examination documented in this encounter Care Teams Mushroom Laborer Relationship Specialty Start Date End Date Ana Her MD [address] [place] [address] PCP - General 07/29/13 documented as of this encounter
--- OUTSIDE RECORDS SUMMARY | 2024-04-25 11:05 | XMS_ITS | Encounter Summary ---
Author Organization [facility] Address [address] [place] [address] Care Team Providers Care Dental Internship Name Role Phone Unknown, Provider MD Primary Care Provider Unava ilable Encounter Details Date Type Department Care Team (Late st Contact Info) Description 04/06/2022 Lab Requisition [facility] Pathology & Laboratory Medicine - [facility] [address] [place] [address] Outr Resulting Lab, Provider Social History Tobacco [...] Salmonella PCR Negative Negative 04/06/2022 22:54 EST [facility] Shigella/Enteroin vasive E. coli Negative Negative 04/06/2022 22:54 EST [facility] HN LAB CAMPYLOBACTER PCR Negative Negative 04/06/2022 22:54 EST [facility] Shiga Toxin PCR Negative Negative 22:54 EST [facility] Feces SPECIMEN FROM RECTUM / Unknown 04/05/2022 10:41 EST 04/06/2022 18:31 EST us Provider Outr Resulting Lab MICROBIOLOGY - GENER AL ORDERABLES Final Result [facility] [address] [place] [address] documented in this encounter Visit Diagnoses Not on filedocumented in this encounter Care Teams Dental Internship Relationship Specialty Start Date End Date Unknown, Provider, PCP - General 01/13/14 documented as of this encounter
--- OUTSIDE RECORDS SUMMARY | 2024-04-25 11:05 | XMS_ITS | Encounter Summary ---
Author Organization [facility] Address [facility] [place] [address] Care Team Providers Care Underwriting Intern Name Role Phone Ana Her MD Primary Care Provider [phone] Encounter Details Date Type Department Care Team (Latest Contact Info) Description 04/24/2014 - 04/24/2014 11:59 PM EST Hospital Encounter Radiology Library at [facility] [place] [address] Maryam Yee MD [facility] [place] [address] Screening breast examination Discharge Disposition: Home Social [...] Only Mammo (04/24/2014 12:00 AM EST) [facility] 02/19/2017 1:46 PM EDT This exam is for storage only and is auto-finalizing. Maryam Yee MD IMG FILM LIBRARY O RDERABLES [place], [place] documented in this encounter Visit Diagnoses Diagnosis Screening breast examination Other screening breast examination documented in this encounter Care Teams Underwriting Intern Relationship Specialty Start Date End Date Ana Her MD [address] [facility] [address] [place] [address] PCP - General 07/29/13 documented as of this encounter
--- OUTSIDE RECORDS SUMMARY | 2024-04-25 11:05 | XMS_ITS | Encounter Summary ---
Author Organization [facility] Address [facility] [place] [address] Care Team Providers Care Property Custodian Name Role Phone Unavailable Primary Care Provider Unavailabl e Encounter Details Date Type Department Care Team (Latest Contact Info) Description 12/25/2010 - 12/25/2010 11:59 PM EDT Hospital Encounter Radiology Library at [facility] [place] [address] Jackie Cisneros APRN [facility] [place] [address] Discharge Disposition: Home Social History Tobacco Use [...] Only Mammo (12/25/2010 12:00 AM EDT) Narrative [facility] - 02/23/2017 3:27 PM EDT This exam is for storage only and is auto-finalizing. Jackie Cisneros APRN IMG FILM LIBRARY ORD ERABLES NADINE Sethi documented in this encounter Visit Diagnoses Not on filedocumented in this encounter
--- OUTSIDE RECORDS SUMMARY | 2024-04-25 11:05 | XMS_ITS | Encounter Summary ---
Author Organization [facility] Address [facility] [place] [address] Care Team Providers Care Paper Novelty Maker Name Role Phone Unavailable Primary Care Provider Unavailabl e Encounter Details Date Type Department Care Team (Latest Contact Info) Description 04/04/2005 - 04/04/2005 11:59 PM EST Hospital Encounter Radiology Library at [facility] [place] [address] Jackie Cisneros APRN [facility] [place] [address] Discharge Disposition: Home Social History Tobacco Use [...]
--- OUTSIDE RECORDS SUMMARY | 2024-04-25 11:05 | XMS_ITS | Encounter Summary ---
Author Organization Replaced By [facility] [place] [address] Care Team Providers Care Pharmacy Benefit Manager Name Role Phone Ana Her MD Primary Care Provider [phone] Encounter Details Date Type Department Care Team (Latest Contact Info) Description 02/25/2017 1:36 PM EDT - 02/25/2017 2:58 PM EDT Hospital Encounter [place] [phone] Maryam Yee MD [facility] [place] [address] Abnormal mammogram Discharge Disposition: Home Social History [...] unspecified documented in this encounter Care Teams Pharmacy Benefit Manager Relationship Specialty Start Date End Date Ana Her MD [address] [place] [address] [address] [place] [address] PCP - General 07/29/13 documented as of this encounter
--- OUTSIDE RECORDS SUMMARY | 2024-04-25 11:05 | XMS_ITS | Encounter Summary ---
Author Organization [facility] Address [facility] [place] [address] Care Team Providers Care Galley Worker Name Role Phone Ana Her MD Primary Care Provider [phone] Encounter Details Date Type Department Care Team (Latest Contact Info) Description 02/17/2017 - 02/17/2017 12:14 AM EDT Hospital Encounter Radiology Library at [facility] [place] [address] Maryam Yee MD [facility] [place] [address] Screening breast examination Discharge Disposition: Home Social [...] Only Mammo (02/17/2017 12:00 AM EDT) Narrative [facility] - 02/19/2017 1:59 PM EDT This exam is for storage only and is auto-finalizing. Maryam Yee MD IMG FILM LIBRARY O RDERABLES Performing Organization Address City/State/[facility] Co de Phone Number [place], [place] documented in this encounter Visit Diagnoses Diagnosis Screening breast examination Other screening breast examination documented in this encounter Care Teams Galley Worker Relationship Specialty Start Date End Date Ana Her MD [address] [place] [address] PCP - General 07/29/13 documented as of this encounter
--- OUTSIDE RECORDS SUMMARY | 2024-04-25 11:05 | XMS_ITS | Encounter Summary ---
Author Organization [facility] [place] [address] Care Team Providers Care Transplant Surgeon Name Role Phone Ana Her MD Primary Care Provider [phone] Encounter Details Date Type Department Care Team (Latest Contact Info) Description 02/25/2017 1:31 PM EDT Hospital [place] [address] Maryam Yee MD [facility] [place] [address] Abnormal mammogram Discharge Disposition: Home Social History [...] findings. Focal asymmetry persists. No additional findings. Mrayam Yee MD IMG MAMMO ORDERABL ES documented in this encounter Visit Diagnoses Diagnosis Abnormal mammogram Abnormal mammogram, unspecified documented in this encounter Care Teams Transplant Surgeon Relationship Specialty Start Date End Date Ana Her MD [address] [place] [address] PCP - General 07/29/13 documented as of this encounter
--- OUTSIDE RECORDS SUMMARY | 2024-04-25 11:05 | XMS_ITS | Encounter Summary ---
Author Organization [facility] Address [address] [facility] [place] [address] Care Team Providers Care Storage Management Consultant Name Role Phone Ana Her MD Primary Care Provider [phone] Encounter Details Date Type Department Care Team (Late st Contact Info) Description 09/13/2015 Interpretation Only Radiology [address] [facility] [place] [address] Unknown None Social History Tobacco Use Types [...] 6:56 AM EDT APD Historical Result Principal Monotype Setter: ??MAE ??ESCHBACH IMAGE-INTENSIFIER FILMS: INDICATION: ??Right L4 foraminotomy. FINDINGS: A total of 5.8 seconds of fluoro time was utilized by Geraldine Claros MD. ??Estimated dose is 5.96 mGy. ??Two image-intensifier films record the event. ??They show the lumbosacral junction in the lateral projection with a surgical instrument indicating the level of L4. ??No Radiologist was present for this exam. Mae Shelley DO TOBIN/mn [id number] Procedure Note Unknown - 11/01/2018 APD Historical Result Principal Monotype Setter: MAE SHELLEY IMAGE-INTENSIFIER FILMS: INDICATION: Right L4 foraminotomy. FINDINGS: A total of 5.8 seconds of fluoro time was utilized by Geraldine Claros MD. Estimated dose is 5.96 mGy. Two image-intensifier films record the event. They show thelumbosacral junction in the lateral projection with a surgical instrument indicating the level of L4.No Radiologist was present for this exam. Mae Shelley DO TOBIN/mn [id number] Unknown IMG FLUORO ORDERABLE S documented in this encounter Visit Diagnoses Not on filedocumented in this encounter Care Teams Storage Management Consultant Relationship Specialty Start Date End Date Ana Her MD [address] [place] [address] PCP - General 07/29/13 documented as of this encounter
--- OUTSIDE RECORDS SUMMARY | 2024-04-25 11:05 | XMS_ITS | Encounter Summary ---
Author Organization [facility] Address [address] [place] [address] Care Team Providers Care Song And Dance Performer Name Role Phone Unavailable Primary Care Provider Unavailabl e Encounter Details Date Type Department Care Team (Latest Contact Info) Description 01/10/2014 20:50 EDT - 01/10/2014 23:59 EDT Hospital Encounter [facility] [address] [place] [address] Unknown, Provider, MD Discharge Disposition: Home or [...] Code Departure Means Destination Home or Self Senior Care documented in this encounter Plan of Treatment Not on file documented as of this encounter Visit Diagnoses Not on filedocumented in this encounter
--- OUTSIDE RECORDS SUMMARY | 2024-04-25 11:05 | XMS_ITS | Encounter Summary ---
[place] [address] Care Team Providers Care Family Service Counselor Name Role Phone Ana Her MD Primary Care Provider [phone] Reason for Visit * Reason Comments Low Back Pain Encounter Details Date Type Department Care Team (Late st Contact Info) Description 08/30/2014 8:35 AM EDT Office [place] [phone] Michelle Hurtado APRN [facility] [place] [address] Neurogenic claudication due to lumbar spinal stenosis [...] this encounter Progress Notes * Michelle Hurtado, SENIOR ANIMATOR - 08/30/2014 9:37 AM EDT CHIEF COMPLAINT: [...] activity. 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 MEDICATIONS & [...] care of this patient. Michelle Hurtado MS, SENIOR ANIMATOR, ENGLISH HORN PLAYER-C [facility] documented in this encounter Plan of Treatment Not on file documented as of this encounter Visit Diagnoses Diagnosis Neurogenic claudication due to lumbar spinal stenosis Spinal stenosis, lumbar region, with neurogenic claudication documented in this encounter Care Teams Family Service Counselor Relationship Specialty Start Date End Date Ana Her MD [address] [place] [address] PCP - General 07/29/13 documented as of this encounter
--- OUTSIDE RECORDS SUMMARY | 2024-04-25 11:05 | XMS_ITS | Encounter Summary ---
[place] [address] Care Team Providers Care Consulting Sales Executive Name Role Phone Ana Her MD Primary Care Provider [phone] Reason for Visit * Reason Onset Date Comments Referral 07/29/2013 Encounter Details Date Type Department Care Team (Late st Contact Info) Description 07/29/2013 [place] [phone] Sophia Palacios Referral Social History Tobacco Use [...] on filedocumented in this encounter Care Teams Consulting Sales Executive Relationship Specialty Start Date End Date Ana Her MD [address] [facility] [address] [place] [address] PCP - General 07/29/13 documented as of this encounter
--- OUTSIDE RECORDS SUMMARY | 2024-04-25 11:05 | XMS_ITS | Encounter Summary ---
[place] [address] Care Team Providers Care Elevator Service Technician Name Role Phone Ana Her MD Primary Care Provider [phone] Reason for Visit * Reason Comments Establish Care * Consultation (Routine) - Specialty Diagnoses / Procedures Referred By Christiano hackett Referred To Contact Hematology and Oncology Diagnoses Other abnormal and inconclusive findings on diagnostic imaging of breast abnormal mammo, left breast Jackie Cisneros, WENDY [address] [place] [address] [facility] Hem Onc [address] [place] [address] Referral ID Status Reason Start Date Expiration Date V isits Requested Visits Authorized [id number] Consult, Test & Treat Connection Center 02/17/2017 05/20/2017 6 6 Encounter Details Date Type Department Care Team (Late st Contact Info) Description 03/03/2017 9:00 AM EDT Office [place] [address] Malika Chen MD [facility] [place] [address] Argentina Sanchez, RN Malignant neoplasm [...] she will meet with medical and radiation ([facility]) oncologists after surgery. 4. Contact phone number for questions or concerns in the immediate post- operative period. 5. Comprehensive Breast Program Binder. 6. Post Breast Surgery Exercises handout created by physical therapists at [facility]. 7. Breast Cancer Treatment Process care map provided and reviewed. 8. Things to Consider...What I Wish I Knew advice from breast cancer patients handout provided. She verbalized understanding of the plan of care and states all her questions were answered. Twentyminutes was spent in education and providing support. Alma Delia has our contact information. She will call the manager surgical to schedule surgery after she has her [...] Alma Delia had a bone scan in [place] which was read as possible metastasis in the left tibia. Of note- she fractured this area recently. She has recovered well. PMH HNT NIDDM not on meds Spinal stenosis Fractured left tibial plateau December, GERD FH: Maternal first cousin with breast cancer Brother with rectal cancer Sister with PE SH: lives alone. Has good support from sisters who live in [place]. Non smoker. Has a son who lives [...] positive documented in this encounter Care Teams Elevator Service Technician Relationship Specialty Start Date End Date Ana eHr MD [address] [place] [address] PCP - General 07/29/13 documented as of this encounter
--- OUTSIDE RECORDS SUMMARY | 2024-04-25 11:05 | XMS_ITS | Encounter Summary ---
Author Organization [facility] [place] [address] Care Team Providers Care Financial Institution Manager Name Role Phone Ana Her MD Primary Care Provider [phone] Encounter Details Date Type Department Care Team (Late st Contact Info) Description 03/03/2017 Notes [place] [address] Jnauary Ward MSW Social History Tobacco Use Types Packs/Day Years Used Date Smoking Tobacco: Never Smokeless Tobacco: Never Sex and Gender Information Value Date Recorded Sex Assigned at Not on file Gender Identity Not on file Sexual Orientation Not on file documented as of this encounter Progress Notes * January Ward MSW - 03/03/2017 12:56 PM EDT OFFICE OF CARE MANAGEMENT/CONTINUING PICCOLOIST Reason for referral: Digna Olson is a 71 year old, female who was seen in the multidisciplinarybreast care clinic for a surgical consult as she was recently diagnosed with ER/AK+, left breast, invasive mucinous carcinoma. After meeting with Dr. Chen, pt has decided to have a lumpectomy/SLNB. If pt needs radiation therapy, she will receive it at the [facility]. [facility] met with pt to complete a psychosocial assessment and to explain my role in the breast program. Pt was encouraged to contact me if she has any questions or concerns. Living arrangements/social supports: Pt lives alone in [place], [place]. She has support from her family and is accompanied to today's appt by her sisters who live in [place]. Employment/Insurance/Finances: Pt is retired and receives Social Security Long-Term Benefits. Pt has Medicare A and B [...] Antonia Oliva is the SW for the [facility]. Plan: [facility] will continue to follow pt to assess and assist with their psychosocial needs. DELONTE Moreno Comprehensive Breast Program/[place] [id number] Pager #[phone] documented in this encounter Plan of Treatment Not on file documented as of this encounter Visit Diagnoses Not on filedocumented in this encounter Care Teams Financial Institution Manager Relationship Specialty Start Date End Date Ana Her MD [address] [place] [address] PCP - General 07/29/13 documented as of this encounter
--- OUTSIDE RECORDS SUMMARY | 2024-04-25 11:05 | XMS_ITS | Encounter Summary ---
Author Organization [facility] [place] [address] Care Team Providers Care Telegraphic Typewriter Operator Chief Name Role Phone Ana Her MD Primary Care Provider [phone] Encounter Details Date Type Department Care Team (Latest Contact Info) Description 02/25/2017 1:32 PM EDT - 02/25/2017 1:35 PM EDT Hospital [place] [phone] Maryam Yee MD [facility] [place] [place] [address] Abnormal mammogram Discharge Disposition: Home Social History [...] EDT 02/25/2017 3:02 PM EDT Narrative [facility] - 02/25/2017 3:02 PM EDT Specimen requisition ordered. ??Separate Pathology report to follow Enzo Burkett MD PATHOLOGY/CYTOLOGY O SHANTAL [facility] [place] [address] documented in this encounter Visit Diagnoses Diagnosis [...] mg documented in this encounter Care Teams Telegraphic Typewriter Operator Chief Relationship Specialty Start Date End Date Ana Her MD [address] [place] [address] PCP - General 07/29/13 documented as of this encounter
--- OUTSIDE RECORDS SUMMARY | 2024-04-25 11:05 | XMS_ITS | Encounter Summary ---
Author Organization [facility] [place] [address] Care Team Providers Care Parenting Skills Instructor Name Role Phone Ana Her MD Primary Care Provider [phone] Encounter Details Date Type Department Care Team (Latest Contact Info) Description 02/25/2017 2:59 PM EDT - 02/25/2017 11:59 PM EDT Hospital En[place] [phone] Enzo Burkett MD Abnormal finding on breast [...] in this encounter Results * Mammo Diag Jeraym Left (02/25/2017 3:53 PM EDT) Anatomical Region [...] associated with invasive carcinoma. Enzo Burkett MD [facility] MAMMO ORDERABLES * Surgical Pathology Report (02/25/2017 3:01 PM EDT) Final Diagnosis [id number] ? Location: 3L The signing pathologist has [...] FISH. ??Direct analysis was performed using the HeyCrowd Kit. ??Slide adequacy and signal enumeration were [...] factor receptor 2 testing in breast cancer: [place] Society of Clinical Oncology/College of [place] Pathologists clinical practice guideline update. J Clin Oncol. 2013 Nov . Reviewed by: Kyara Logan MD Sewing Techniques Demonstrator, Molecular Pathology _ Electronically signed by: ??Epifanio Serra MD Verified: ??03/04/2017 ?Pathologist Performed at: ??-[facility] Dept. of Pathology, [place], [place] ? Addendum ADDENDUM DISCUSSION Immunohistochemist ry Studies Specimen: Left breast, core needle biopsy (A1) ER immunoreactivity: Positive ( ??>90% cancer cells with immunostaining) Stain intensity: Strong . ADDENDUM DISCUSSION KY immunoreactivity: Positive ( ??>90% cancer cells with [...] The assays were performed according to the commercial correspondent ' s instructions using Anti-ER (SP1) and Anti-KY (16) antibodies. Electronically signed by: ??Epifanio Serra MD Verified: ??02/27/2017 ?Pathologist Performed at: ??-[facility] Dept. 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 of Pathology, [place], [place] DISCUSSION Studies for ER, KY, and HER2 have been ordered; results will [...] g: (T4) ??elian 03/04/2017 2:01 PM EDT [facility] BREAST STRUCTURE / Unknown 02/25/2017 3:01 PM EDT 02/25/2017 3:01 PM EDT Enzo Burkett MD PATHOLOGY/CYTOLOGY O RDERABLES [facility] [place] [address] documented in this encounter Visit Diagnoses Diagnosis Abnormal finding on breast imaging Other (abnormal) findings on radiological examination of breast documented in this encounter Care Teams Parenting Skills Instructor Relationship Specialty Start Date End Date Ana Her MD [address] [place] [address] PCP - General 07/29/13 documented as of this encounter
--- OUTSIDE RECORDS SUMMARY | 2024-04-25 11:05 | XMS_ITS | Encounter Summary ---
Author Organization [facility] Address [facility] [place] [address] Care Team Providers Care Successfactors Consultant Name Role Phone Unavailable Primary Care Provider Unavailabl e Encounter Details Date Type Department Care Team (Latest Contact Info) Description 12/08/2008 - 12/08/2008 11:59 PM EDT Hospital Encounter Radiology Library at [facility] [place] [place] [address] Jackie Cisneros APRN [facility] [place] [address] [address] [place] [address] Discharge Disposition: Home Social History Tobacco Use [...] Only Mammo (12/08/2008 12:00 AM EDT) Narrative [facility] - 02/23/2017 3:30 PM EDT This exam is for storage only and is auto-finalizing. Jackie Cisneros APRN IMG FILM LIBRARY ORD ERABLES NADINE Sethi documented in this encounter Visit Diagnoses Not on filedocumented in this encounter
--- OUTSIDE RECORDS SUMMARY | 2024-04-25 11:05 | XMS_ITS | Encounter Summary ---
Author Organization [place] [address] Care Team Providers Care Supervisor Steffen House Name Role Phone Ana Her MD Primary Care Provider [phone] Encounter Details Date Type Department Care Team (Late st Contact Info) Description 02/27/2017 Orders [place] [address] Malika Chen MD [facility] [place] [address] Malignant neoplasm of left breast in female, [...] EDT) Glucose 139 65 - 199 mg/dL [facility] Comment:Diabetes: >=200 mg/d L plus symptoms Blood Urea Nitrogen 20(H) 8 - 18 mg/dL [facility] Creatinine 0.95 0.70 - 1.20 mg/dL [facility] Sodium 141 135 - 145 mmol/L [facility] Potassium 4.8 3.5 - 5.0 mmol/L [facility] Comment: Please note: ??Patients with WBC >100,000 may have falsely elevated Potassium levels. ??For accurate Potassium quantification in these patients send serum separator tube (gold top) for subsequent determinations. ??Contact the Clinical Chemistry Laboratory if there are any questions. Chloride 101 98 - 107 mmol/L [facility] Carbon Dioxide 26 22 - 31 mmol/L [facility] Anion Gap 14 5 - 15 mmol/L [facility] Calcium 9.3 8.5 - 10.5 mg/dL [facility] Protein, Total 6.9 6.1 - 8.0 gm/dL [facility] Albumin 4.2 3.2 - 5.2 gm/dL [facility] Aspartate Aminotransferase 17 0 - 30 unit/L [facility] Alanine Aminotransferase 16 0 - 30 unit/L [facility] Alkaline Phosphatase 75 40 - 104 unit/L [facility] Bilirubin, Total 0.5 0.2 - 1.3 mg/dL [facility] Est Glomerular Filtration Rate 58(L) >=60 [facility] Comment: The reported eGFR should be multiplied by 1.2 for patients. The MDRD is not an appropriate measure of renal function for patients with body mass extremes or in patients with acute kidney failure. http://[employer].TwoTen/DHnkdep http://[employer]/DHMCnkf Blood specimen (specimen) 03/03/2017 7:50 AM EDT 03/03/2017 8:03 AM EDT Narrative Resulting Agency Comment Spec In Lab Malika Chen MD CHEMISTRY ORDERABLE S [facility] [place] [address] documented in this encounter Visit Diagnoses Diagnosis Malignant neoplasm of left breast in female, estrogen receptor positive, unspecified site of breast documented in this encounter Care Teams Supervisor Steffen House Relationship Specialty Start Date End Date Ana Her MD [address] [facility] [address] [place] [address] PCP - General 07/29/13 documented as of this encounter
--- OUTSIDE RECORDS SUMMARY | 2024-04-25 11:05 | XMS_ITS | Encounter Summary ---
Author Organization [facility] [place] [address] Care Team Providers Care Street Department Dispatcher Name Role Phone Ana Her MD Primary Care Provider [phone] Encounter Details Date Type Department Care Team (Late st Contact Info) Description 03/04/2017 Orders [place] [address] Malika Chen MD [facility] [place] [address] Malignant neoplasm of upper-outer quadrant of left [...] MD IMG MAMMO ORDERABLE S * Mammo [place] Node Injection (03/30/2017 9:01 AM EST) Anatomical [...] positive documented in this encounter Care Teams Street Department Dispatcher Relationship Specialty Start Date End Date Ana Her MD [address] [facility] [place] [address] PCP - General 07/29/13 documented as of this encounter
--- OUTSIDE RECORDS SUMMARY | 2024-04-25 11:05 | XMS_ITS | Encounter Summary ---
[place] [address] Care Team Providers Care Egg And Spice Mixer Name Role Phone Ana Her MD Primary Care Provider Encounter Details Date Type Department Care Team (Late st Contact Info) Description 07/26/2013 Orders [place] [address] Ana Her MD [facility] [address] [place] [address] Social History Tobacco Use Types Packs/Day Years [...] is a Non-reportable exam Ana Her MD [facility] FILM LIBRARY ORD ERABLES documented in this encounter Visit Diagnoses Not on filedocumented in this encounter Care Teams Egg And Spice Mixer Relationship Specialty Start Date End Date Ana Her MD [address] [place] [address] PCP - General 07/29/13 documented as of this encounter
--- OUTSIDE RECORDS SUMMARY | 2024-04-25 11:05 | XMS_ITS | Encounter Summary ---
Author Organization [facility] Address [address] [place] [address] Care Team Providers Care Disintegrator Feeder Name Role Phone Unknown, Provider MD Primary Care Provider Unava ilable Encounter Details Date Type Department Care Team (Late st Contact Info) Description 08/12/2021 Lab Requisition [facility] Pathology & Laboratory Medicine - [facility] [address] [place] [address] Outr Resulting Lab, Provider Social History Tobacco [...] Priority Date/Time Associated Diagnosis Comments ZZCOVID-19 TEST [facility] PCR Today 08/12/2021 15:00 EDT COVID-19 TESTING Routine 08/12/2021 15:0 0 EDT documented in this encounter Results * [facility] (08/12/2021 15:00 EDT) Swab 08/12/2021 15:0 0 EDT 08/13/2021 16:56 EDT us Provider Outr Resulting Lab MICROBIOLOGY - GENER AL ORDERABLES Final Result [facility] [address] [place] [address] * COVID-19 TESTING (08/12/2021 15:00 EDT) COVID-19 rt-PCR Result Negative Negative 08/14/2021 11:53 EDT [facility] Comment: This test has [...] was performed using the palomo SARS-CoV-2 assay ([employer] on the Palomo 6800 System Performing Lab Palomo 6800 [facility] Lab 08/14/2021 11:53 EDT [facility] Swab 08/12/2021 15:0 0 EDT 08/13/2021 16:56 EDT us Provider Outr Resulting Lab MICROBIOLOGY - GENER AL ORDERABLES Final Result [facility] [address] [place] [address] documented in this encounter Visit Diagnoses Not on filedocumented in this encounter Care Teams Disintegrator Feeder Relationship Specialty Start Date End Date Unknown, Provider, PCP - General 01/13/14 documented as of this encounter
--- OUTSIDE RECORDS SUMMARY | 2024-04-25 11:05 | XMS_ITS | Encounter Summary ---
[place] [address] Care Team Providers Care Supervisor Painting Department Name Role Phone Ana Her MD Primary Care Provider [phone] 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 * Surgical (Routine) - Closed Specialty Diagnoses / Procedures Referred By Christiano hackett Referred To Contact Orthopaedics Diagnoses Lumbar spinal stenosis Michelle Hurtado APRN [facility] [place] [address] [facility] [place] [address] [place] [address] Referral ID Status Reason Start Date Expiration Date V isits Requested Visits Authorized [id number] Closed Consult, Test & Treat 09/08/2014 09/08/2015 3 3 Encounter Details Date Type Department Care Team (Late st Contact Info) Description 09/08/2014 Orders [place] [address] Michelle Hurtado FISH AND WILDLIFE TECHNICIAN [facility] [place] [address] Lumbar spinal stenosis Social History Tobacco Use [...] claudication documented in this encounter Care Teams Supervisor Painting Department Relationship Specialty Start Date End Date Ana Her MD [facility] [address] [facility] [address] [place] [address] PCP - General 07/29/13 documented as of this encounter
--- OUTSIDE RECORDS SUMMARY | 2024-04-25 11:05 | XMS_ITS | Encounter Summary ---
Author Organization [facility] Address [address] [place] [address] Care Team Providers Care Transformer Inspector Name Role Phone Unknown, Provider Primary Care Provider Unava ilable Encounter Details Date Type Department Care Team (Late st Contact Info) Description 03/17/2017 Results Only [facility] [phone] Kat Lazaro MD [facility] [address] [place] [id number] Social History Tobacco Use Types Packs/Day Years [...] ? DIGNA KIMBROUGH ? Accession #: ? [id number] ? : ? 1945 (Age: 71) ??F [...] (ASCP) 03/18/2017 8:[address] [facility] 03/17/2017 16:1 5 EST 03/17/2017 16:15 EST us Kat Lazaro MD PATHOLOGY ORDERABLES Fin al Result [facility] [address] [place] [address] documented in this encounter Visit Diagnoses Not on filedocumented in this encounter Care Teams Transformer Inspector Relationship Specialty Start Date End Date Unknown, Provider, PCP - General 01/13/14 documented as of this encounter
--- OUTSIDE RECORDS SUMMARY | 2024-04-25 11:05 | XMS_ITS | Encounter Summary ---
[place] [address] Care Team Providers Care Maintenance Engineer Name Role Phone Ana Her MD Primary Care Provider [phone] Encounter Details Date Type Department Care Team (Latest Contact Info) Description 03/03/2017 7:55 AM EDT Laboratory Appointment Lab [address] [place] [address] Malignant neoplasm of left breast in female, [...] 7:50 AM EDT) Neutrophil % 72.8 % [facility] Neutrophil Absolute 6.45(H) 1.70 - 6.10 x10(3)/mc L [facility] Lymph % 14.4 % [facility] Lymphocytes Abs 1.3 0.9 - 3.2 x10(3)/ L [facility] Monocyte % 5.6 % [facility] Monocyte Abs 0.5 0.3 - 0.9 x10(3)/ L [facility] Eos % 6.1 % [facility] Eosinophils Abs 0.5(H) 0.0 - 0.4 x10(3)/ L [facility] Basophil % 0.6 % [facility] Baso Absolute 0.0 0.0 - 0.1 x10(3)/ L [facility] Immature Gran % 0.50 % [facility] Comment: Immature granulocytes(IG's)percentage and absolute count will include metamyelocytes, myelocytes, and promyelocytes. Blood smears from CBCs yielding IG's will be scanned manually for concordance. If this scan disagrees with the automated IG or if promyelocytes are noted, a manual differential will be performed. Immature Gran Absolute 0.04 0.00 - 0.04 x10(3)/mc L [facility] Blood specimen (specimen) 03/03/2017 7:50 AM EDT 03/03/2017 8:03 AM EDT Narrative Resulting Agency Comment Spec In Lab Malika Chen MD HEMATOLOGY ORDERABL ES [facility] [place] [address] * (ABNORMAL) Hemogram (03/03/2017 7:50 AM EDT) White Blood Cell 8.8 4.0 - 9.5 x10(3)/mc L [facility] Red Blood Cell 3.80(L) 4.00 - 5.21 x10(6)/mc L [facility] Hemoglobin 12.3 11.7 - 15.5 gm/dL [facility] Hematocrit 36.3 35.7 - 45.8 % [facility] Mean Cell Volume 95.5(H) 82.6 - 94.4 fL [facility] Mean Cell Hemoglobin 32.4(H) 27.1 - 32.0 pg [facility] Mean Cell Hemoglobin Concentration 33.9 31.7 - 35.0 gm/dL [facility] Platelet 156 145 - 357 x10(3)/ L [facility] RDW Standard Deviation 48.3(H) 37.0 - 46.0 [facility] RDW coefficient of variation 13.9 11.5 - 14.1 % [facility] Mean Platelet Volume 11.9 7.6 - 12.9 fL [facility] NRBC% auto 0.0 % [facility] NRBC Absolute 0.000 0.000 - 0.000 x10(3)/ L [facility] Blood specimen (specimen) 03/03/2017 7:50 AM EDT 03/03/2017 8:03 AM EDT Narrative Resulting Agency Comment Spec In Lab Malika Chen MD HEMATOLOGY ORDERABL ES [facility] [place] [address] * (ABNORMAL) Comprehensive metabolic panel (non-fasting) (03/03/2017 7:50 AM EDT) Glucose 139 65 - 199 mg/dL [facility] Comment:Diabetes: >=200 mg/d L plus symptoms Blood Urea Nitrogen 20(H) 8 - 18 mg/dL [facility] Creatinine 0.95 0.70 - 1.20 mg/dL [facility] Sodium 141 135 - 145 mmol/L [facility] Potassium 4.8 3.5 - 5.0 mmol/L [facility] Comment: Please note: ??Patients with WBC >100,000 may have falsely elevated Potassium levels. ??For accurate Potassium quantification in these patients send serum separator tube (gold top) for subsequent determinations. ??Contact the Clinical Chemistry Laboratory if there are any questions. Chloride 101 98 - 107 mmol/L [facility] Carbon Dioxide 26 22 - 31 mmol/L [facility] Anion Gap 14 5 - 15 mmol/L [facility] Calcium 9.3 8.5 - 10.5 mg/dL [facility] Protein, Total 6.9 6.1 - 8.0 gm/dL [facility] Albumin 4.2 3.2 - 5.2 gm/dL [facility] Aspartate Aminotransferase 17 0 - 30 unit/L [facility] Alanine Aminotransferase 16 0 - 30 unit/L [facility] Alkaline Phosphatase 75 40 - 104 unit/L [facility] Bilirubin, Total 0.5 0.2 - 1.3 mg/dL [facility] Est Glomerular Filtration Rate 58(L) >=60 [facility] Comment: The reported eGFR should be multiplied by 1.2 for patients. The MDRD is not an appropriate measure of renal function for patients with body mass extremes or in patients with acute kidney failure. http://[facility] [place]/DHnkdep http://[facility].com/DHMCnkf Blood specimen (specimen) 03/03/2017 7:50 AM EDT 03/03/2017 8:03 AM EDT Narrative Resulting Agency Comment Spec In Lab Malika Chen MD [place] [address] documented in this encounter Visit Diagnoses Diagnosis Malignant neoplasm of left breast in female, estrogen receptor positive, unspecified site of breast documented in this encounter Care Teams Maintenance Engineer Relationship Specialty Start Date End Date Ana Her MD [address] [place] [address] PCP - General 07/29/13 documented as of this encounter
--- OUTSIDE RECORDS SUMMARY | 2024-04-25 11:05 | XMS_ITS | Encounter Summary ---
[place] [address] Care Team Providers Care Rail Flaw Detector Operator Name Role Phone Ana Her MD Primary Care Provider [phone] Reason for Visit * Reason Comments Low Back Pain Bilateral Hip Pain when standing or wal jaquelin Encounter Details Date Type Department Care Team (Late st Contact Info) Description 09/12/2014 11:20 AM EDT Office [place] [id number] Kris Benoit MD Neurogenic claudication due to [...] pain free. Lumbar MRI from 08/16/2014 from [facility] is notable for multilevel degenerative changes L2-L3, L3-L4, L4-L5, L5-S1. At L2-L3, she has [id number] spinal stenosis, but she has no leg [...] claudication documented in this encounter Care Teams Rail Flaw Detector Operator Relationship Specialty Start Date End Date Ana Her MD [address] [place] [address] PCP - General 07/29/13 documented as of this encounter
--- OUTSIDE RECORDS SUMMARY | 2024-04-29 11:05 | XMS_ITS | Data Portability ---
Author Organization [place] - [facility], [facility] [place] [address] Care Team Providers Care Psychologist Industrial Organizational Name Role Phone GABINODC Humane Agent [facility] Orthopedic Surgeon [facility] Sleep Medicine [facility] Reservation Manager Assessment Encounter Date Assessment Date Assessment LastModified by Organization Details LastModified Time 10/14/2023 10/14/2023 Patient presents for pre-op evaluation. The patient is a suitable candidate for the planned procedure. Their chronic medical problems are optimized Further preoperative evaluation is not needed. BMP and CBC are drawn today. The total time devoted to today's encounter, including both the bdls-lk-gpmq time with the patient and/or family/caregive r and qsr-hory-su-fac e time I personally spent is 30 minutes. Not available 10/14/2023 11:57:30 12/02/2023 12/02/2023 The total time devoted to today's encounter, including both the svag-xu-ajma time with the patient and/or family/caregive r and zzr-zcep-ch-fac e time I personally spent is 35 minutes. Not available 12/02/2023 14:47:23 03/04/2024 03/04/2024 The total time devoted to today's encounter, including both the mjrw-ry-omdt time with the patient and/or family/caregive r and xnj-umjs-pq-fac e time I personally spent is 44 minutes. Not available 03/04/2024 17:47:18 Plan of Treatment Reminders Order Date Submit Date Provider Last Modified By Organization Details Last Modified Time Details Appointments Follow Up 2024 01:20P Allan Her Not available Not available Not available Lab CBC 2023 024 [facility] (Registration ), [address] [place] [address] [place], [address], 10/14/2023 15:11:07 BMP, serum or plasma 2023 024 [facility] (Registration ), [address] [place] [address] [place], [address], 10/14/2023 17:41:37 BMP, serum or plasma 2023 024 [facility] (Registration ), [address] [place] [address] [place], [address], 12/30/2023 08:56:49 magnesium , serum or plasma [address] [facility] [place] [facility] [place] ), [address] [place] [address] [place], [address], 12/09/2023 07:38:05 BNP (B-type natriuret ic peptide), serum or plasma 2023 024 [facility] (Registration ), [address] [place] [address] [place], [address], 12/03/2023 20:48:47 CBC 2023 024 [facility] (Registration ), [address] [place] [address] [place], [address], 12/02/2023 16:35:23 BMP, serum or plasma 2023 024 [facility] (Registration ), [address] [place] [address] [place], [address], 04/19/2024 11:42:49 vitamin D, 25-hydrox y, total, serum 2023 024 [facility] (Registration ), [address] [place] [address] [place], [address], 04/18/2024 16:09:19 HbA1c (hemoglob in A1c), blood 2023 [facility] (Registration ), [address] [place] [address] [place], [address], 04/19/2024 11:39:49 TSH, serum, reflex free T4 2023 [facility] (Registration ), [address] [place] [address] [place], [address], 04/19/2024 11:40:25 CBC 2023 [facility] (Registration ), [address] [place] [address] [place], [address], 04/18/2024 15:08:25 ferritin, serum or plasma 2023 [facility] (Registration ), [address] [place] [address] [place], [address], 04/19/2024 11:41:22 iron + total iron-bind ing capacity (TIBC), serum 2023 [facility] (Registration ), [address] [place] [address] [place], [address], 04/19/2024 11:43:17 BMP, serum or plasma 2023 024 [facility] (Registration ), [address] [place] [address] [place], [address], 04/19/2024 11:42:49 vitamin D, 25-hydrox y, total, serum 2023 [facility] (Registration ), [address] [place] [address] [place], [address], 04/18/2024 16:09:19 HbA1c (hemoglob in A1c), blood 2023 024 [facility] (Registration ), [address] [place] [address] [place], [address], 04/19/2024 11:39:49 TSH, serum, reflex free T4 2023 024 [facility] (Registration ), [address] [place] [address] [place], [address], 04/19/2024 11:40:25 CBC 2023 024 [facility] (Registration ), [address] [place] [address] [place], [address], 04/18/2024 15:08:25 ferritin, serum or plasma 2023 024 [facility] (Registration ), [address] [place] [address] [place], [address], 04/19/2024 11:41:22 iron + total iron-bind ing capacity (TIBC), serum 2023 024 [facility] (Registration ), [address] [place] [address] [place], [address], 04/19/2024 11:43:17 Referral None recorded. Procedures None recorded. Surgeries None recorded. Imaging electroca rdiogram 2023 024 [facility], [address], [place], [address], 10/14/2023 11:56:21 Medication Orders tramadol 50 mg tablet 2023 024 [facility], [address] [facility], [place], [address], 02/19/2024 13:12:28 furosemid e 80 mg tablet 2023 024 [facility], [address] [place] [address], [address], [place], [address], 03/04/2024 14:49:38 spironola ctone 25 mg tablet [email or web address] [facility], [address] [place] [address], [facility] [address], [address], 12/02/2023 12:50:28 lisinopri l 5 mg tablet 2023 [facility], [address] [place] [address], [facility] [address], [address], 02/19/2024 13:19:32 carvedilo l 25 mg tablet 2023 [facility], [address] [place] [address], [address], [place], [address], 02/19/2024 13:19:26 hydromorp ricky 2 mg tablet 2023 024 [facility], [address] [place], [address], 03/04/2024 15:12:30 levothyro xine 75 mcg tablet [address] [facility], [address] [place], [address], 03/04/2024 16:32:19 Patient TargetsNo targets recorded. Patient InstructionsNo instructions recorded. 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 None Reported. Results Created Date Observation Date Name Description Value Unit Range Abnormal Flag Note LastModifiedBy Organization Detail LastModifiedTime 10/14/19 24 10/14/2023 COMPL ETE BLOOD COUNT NO DIFF WBC 8.22 10_3/ uL 4.4-10 .8 normal Not Available [facility] [address] [place], [address] 10/14/2023 15:11:07 10/14/19 24 10/14/2023 COMPL ETE BLOOD COUNT NO DIFF RBC 3.22 10_6/ uL 3.93-5 .22 low Not Available [address], [address] 10/14/2023 15:11:07 10/14/19 24 10/14/2023 COMPL ETE BLOOD COUNT NO DIFF HGB 10.9 g/dL 11.2-1 5.7 low Not Available [address] [place], [address] 10/14/2023 15:11:07 10/14/19 24 10/14/2023 COMPL ETE BLOOD COUNT NO DIFF HCT 32.5 % 36.0-4 6.0 low Not Available [address] [place], [address] 10/14/2023 15:11:07 10/14/19 24 10/14/2023 COMPL ETE BLOOD COUNT NO DIFF MCV 101 fL 80-95 high Not Available [address] [place], [address] 10/14/2023 15:11:07 10/14/19 24 10/14/2023 COMPL ETE BLOOD COUNT NO DIFF MCH 33.9 pg 27.0-3 3.0 high Not Available [address] [place], [address] 10/14/2023 15:11:07 10/14/19 24 10/14/2023 COMPL ETE BLOOD COUNT NO DIFF MCHC 33.5 % 32.0-3 6.0 normal Not Available [address] [place], [address] 10/14/2023 15:11:07 10/14/19 24 10/14/2023 COMPL ETE BLOOD COUNT NO DIFF RDW 13.9 % 11.7-1 4.6 normal Not Available [address] [place], [address] 10/14/2023 15:11:07 10/14/19 24 10/14/2023 COMPL ETE BLOOD COUNT NO DIFF platelet count 133 10_3/ uL 130-40 0 normal Not Available [address] [place], [address] 10/14/2023 15:11:07 10/14/19 24 10/14/2023 COMPL ETE BLOOD COUNT NO DIFF MPV 12.8 fL 8.0-11 .0 high Not Available [address] [place], [address] 10/14/2023 15:11:07 10/14/19 24 10/14/2023 BASIC METAB OLIC PANEL calcium 9.3 mg/dL 8.5-10 .1 normal Not Available [facility] (Registration ) [address] [place] [address] [place], [address], 10/14/2023 15:19:07 10/14/19 24 10/14/2023 BASIC METAB OLIC PANEL glucose 105 mg/dL 74-106 normal Not Available [facility] (Registration ) [address] [place] [address] [place], [address], 10/14/2023 15:19:07 10/14/19 24 10/14/2023 BASIC METAB OLIC PANEL BUN 49 mg/dL 7-18 high Not Available [facility] (Registration ) [address] [place] [address] [place], [address], 10/14/2023 15:19:07 10/14/19 24 10/14/2023 BASIC METAB OLIC PANEL creatinine 1.9 mg/dL 0.55-1 .02 high Not Available [facility] (Registration ) [address] [place] [address] [place], [address], 10/14/2023 15:19:07 10/14/19 24 10/14/2023 BASIC METAB [...] young er-ag ed adult s. Not Available [facility] (Registration ) [address] [place] [address] [place], [address], 10/14/2023 15:19:07 10/14/19 24 10/14/2023 BASIC METAB OLIC PANEL sodium 137 mmol/ L 136-14 5 normal Not Available [facility] (Registration ) [address] [place] [address] [place], [address], 10/14/2023 15:19:07 10/14/19 24 10/14/2023 BASIC METAB OLIC PANEL potassium 5.1 mmol/ L 3.5-5. 1 normal Not Available [facility] (Registration ) [address] [place] [address] [place], [address], 10/14/2023 15:19:07 10/14/19 24 10/14/2023 BASIC METAB OLIC PANEL chloride 104 mmol/ L 98-107 normal Not Available [facility] (Registration ) [address] [place] [address] [place], [address], 10/14/2023 15:19:07 10/14/19 24 10/14/2023 BASIC METAB OLIC PANEL CO2 20.3 mmol/ L 21.0-3 2.0 low Not Available [facility] (Registration ) [address] [place] [address] [place], [address], 10/14/2023 15:19:07 10/14/19 24 10/14/2023 BASIC METAB OLIC PANEL anion gap 12.7 mmol/ L 3-11 high Not Available [facility] (Registration ) [address] [place] [address] [place], [address], 10/14/2023 15:19:07 11/18/19 24 11/18/2023 LACTA TE lactate 1.0 mmol/ L 0.6-1. 4 normal Not Available [address] [place], [address] 11/18/2023 15:53:33 11/18/19 24 11/18/2023 COMPL ETE BLOOD COUNT W/DIF F WBC 8.69 10_3/ uL 4.4-10 .8 normal Not Available [address] [place], [address] 11/18/2023 15:57:13 11/18/19 24 11/18/2023 COMPL ETE BLOOD COUNT W/DIF F RBC 3.16 10_6/ uL 3.93-5 .22 low Not Available [address] [place], [address] 11/18/2023 15:57:13 11/18/19 24 11/18/2023 COMPL ETE BLOOD COUNT W/DIF F HGB 10.7 g/dL 11.2-1 5.7 low Not Available [address] [place], [address] 11/18/2023 15:57:13 11/18/19 24 11/18/2023 COMPL ETE BLOOD COUNT W/DIF F HCT 33.0 % 36.0-4 6.0 low Not Available [address] [place], [address] 11/18/2023 15:57:13 11/18/19 24 11/18/2023 COMPL ETE BLOOD COUNT W/DIF F MCV 104 fL 80-95 high Not Available [address] [place], [address] 11/18/2023 15:57:13 11/18/19 24 11/18/2023 COMPL ETE BLOOD COUNT W/DIF F MCH 33.9 pg 27.0-3 3.0 high Not Available [address] [place], [address] 11/18/2023 15:57:13 11/18/19 24 11/18/2023 COMPL ETE BLOOD COUNT W/DIF F MCHC 32.4 % 32.0-3 6.0 normal Not Available [address] [place], [address] 11/18/2023 15:57:13 11/18/19 24 11/18/2023 COMPL ETE BLOOD COUNT W/DIF F RDW 14.6 % 11.7-1 4.6 normal Not Available [address] [place], [address] 11/18/2023 15:57:13 11/18/19 24 11/18/2023 COMPL ETE BLOOD COUNT W/DIF F platelet count 134 10_3/ uL 130-40 0 normal Not Available [address] [place], [address] 11/18/2023 15:57:13 11/18/19 24 11/18/2023 COMPL ETE BLOOD COUNT W/DIF F MPV 11.2 fL 8.0-11 .0 high Not Available [address] [place], [address] 11/18/2023 15:57:13 11/18/19 24 11/18/2023 COMPL ETE BLOOD COUNT W/DIF F neutrophils % 74.8 % Not Available [address] [place], [address] 11/18/2023 15:57:13 11/18/19 24 11/18/2023 COMPL ETE BLOOD COUNT W/DIF F lymphocytes % 13.2 % Not Available [address] [place], [address] 11/18/2023 15:57:13 11/18/19 24 11/18/2023 COMPL ETE BLOOD COUNT W/DIF F monocytes % 5.9 % Not Available [address] [place], [address] 11/18/2023 15:57:13 11/18/19 24 11/18/2023 COMPL ETE BLOOD COUNT W/DIF F eosinophils % 5.2 % Not Available [address] [place], [address] 11/18/2023 15:57:13 11/18/19 24 11/18/2023 COMPL ETE BLOOD COUNT W/DIF F basophils % 0.6 % Not Available [address] [place], [address] 11/18/2023 15:57:13 11/18/19 24 11/18/2023 COMPL ETE BLOOD COUNT W/DIF F immature grans % 0.3 % Not Available Ariela avitia [address] [place], [address] 11/18/2023 15:57:13 11/18/19 24 11/18/2023 COMPL ETE BLOOD COUNT W/DIF F nucleated RBC 0.0 % 0.0-0. 3 normal Not Available [address] [place], [address] 11/18/2023 15:57:13 11/18/19 24 11/18/2023 COMPL ETE BLOOD COUNT W/DIF F absolute neutrophil count 6.50 10_3/ uL 1.2-6. 7 normal Not Available [address] [place], [address] 11/18/2023 15:57:13 11/18/19 24 11/18/2023 COMPL ETE BLOOD COUNT W/DIF F absolute lymphocyte count 1.15 10_3/ uL 1.2-3. 4 low Not Available [address] [place], [address] 11/18/2023 15:57:13 11/18/19 24 11/18/2023 COMPL ETE BLOOD COUNT W/DIF F absolute monocyte count 0.51 10_3/ uL 0.1-0. 8 normal Not Available [address] [place], [address] 11/18/2023 15:57:13 11/18/19 24 11/18/2023 COMPL ETE BLOOD COUNT W/DIF F absolute eosinophil count 0.45 10_3/ uL 0.0-0. 7 normal Not Available [address] [place], [address] 11/18/2023 15:57:13 11/18/19 24 11/18/2023 COMPL ETE BLOOD COUNT W/DIF F absolute basophil count 0.05 10_3/ uL 0.0-0. 2 normal Not Available [address], [address] 11/18/2023 15:57:13 11/18/19 24 11/18/2023 PROTH ROMBI N TIME prothrombin time 10.5 sec 9.1-11 .1 normal Not Available [address] [place], [address] 11/18/2023 16:14:17 11/18/19 24 11/18/2023 PROTH ROMBI N TIME INR 1.0 0.9-1. 1 normal Recom noel d INR thera peuti c range s for orall y admin ister ed drugs are as follo ws: -Jair dard Inten sity 2.0 to 3.0 -High er Inten sity 3.0 to 4.5 Not Available [address] [place], [address] 11/18/2023 16:14:17 11/18/19 24 11/18/2023 PTT ACTIV ATED PTT activated 19.6 sec 23.6-3 2.8 low Hepar in Thera peuti c Range for PTT = 52-84 secon ds New Hepar in Thera peuti c Range 06/09 Not Available [address] [place], [address] 11/18/2023 16:14:18 11/18/19 24 11/18/2023 COMPR EHENS NADEEM METAB OLIC PANEL calcium 9.0 mg/dL 8.5-10 .1 normal Not Available [address] [place], [address] 11/18/2023 16:19:21 11/18/19 24 11/18/2023 COMPR EHENS NADEEM METAB OLIC PANEL glucose 100 mg/dL 74-106 normal Not Available Ethel green [address] [place], [address] 11/18/2023 16:19:21 11/18/19 24 11/18/2023 COMPR EHENS NADEEM METAB OLIC PANEL BUN 15 mg/dL 7-18 normal Not Available Ethel green [address] [place], [address] 11/18/2023 16:19:21 11/18/19 24 11/18/2023 COMPR EHENS NADEEM METAB OLIC PANEL creatinine 1.0 mg/dL 0.55-1 .02 normal Not Available [address] [place], [address] 11/18/2023 16:19:21 11/18/19 24 11/18/2023 COMPR EHENS [...] young er-ag ed adult s. Not Available [address] [place], [address] 11/18/2023 16:19:21 11/18/19 24 11/18/2023 COMPR EHENS NADEEM METAB OLIC PANEL total protein 6.8 g/dL 6.4-8. 2 normal Not Available [address] [place], [address] 11/18/2023 16:19:21 11/18/19 24 11/18/2023 COMPR EHENS NADEEM METAB OLIC PANEL albumin 3.8 g/dL 3.4-5. 0 normal Not Available [address] [place], [address] 11/18/2023 16:19:21 11/18/19 24 11/18/2023 COMPR EHENS NADEEM METAB OLIC PANEL bilirubin, total 0.92 mg/dL 0.2-1. 0 normal Not Available [address] [place], [address] 11/18/2023 16:19:21 11/18/19 24 11/18/2023 COMPR EHENS NADEEM METAB OLIC PANEL alk phos 68 U/L 46-116 normal Not Available [address] [place], [address] 11/18/2023 16:19:21 11/18/19 24 11/18/2023 COMPR EHENS NADEEM METAB OLIC PANEL sodium 144 mmol/ L 136-14 5 normal Not Available [address] [place], [address] 11/18/2023 16:19:21 11/18/19 24 11/18/2023 COMPR EHENS NADEEM METAB OLIC PANEL potassium 3.6 mmol/ L 3.5-5. 1 normal Not Available [address] [place], [address] 11/18/2023 16:19:21 11/18/19 24 11/18/2023 COMPR EHENS NADEEM METAB OLIC PANEL chloride 106 mmol/ L 98-107 normal Not Available [address] [place], [address] 11/18/2023 16:19:21 11/18/19 24 11/18/2023 COMPR EHENS NADEEM METAB OLIC PANEL CO2 29.6 mmol/ L 21.0-3 2.0 normal Not Available [address] [place], [address] 11/18/2023 16:19:21 11/18/19 24 11/18/2023 COMPR EHENS NADEEM METAB OLIC PANEL anion gap 8.4 mmol/ L 3-11 normal Not Available [address] [place], [address] 11/18/2023 16:19:21 11/18/19 24 11/18/2023 COMPR EHENS NADEEM METAB OLIC PANEL AST 15 U/L 15-37 normal Not Available Ethel green [address] [place], [address] 11/18/2023 16:19:21 11/18/19 24 11/18/2023 COMPR EHENS NADEEM METAB OLIC PANEL ALT 16 U/L 14-59 normal Not Available Ethel green [address] [place], [address] 11/18/2023 16:19:21 11/18/19 24 11/18/2023 MAGNE SIUM magnesium 1.9 mg/dL 1.8-2. 4 normal Not Available [address] [place], [address] 11/18/2023 16:19:21 11/18/19 24 11/18/2023 LIPAS E lipase 24 U/L 16-77 normal Not Available Ethel green [address] [place], [address] 11/18/2023 16:19:22 11/18/19 24 11/18/2023 TROPO LUCIA I troponin I < 50 NG/L < or =60 Not Available [address] [place], [address] 11/18/2023 16:19:22 11/18/19 24 11/18/2023 NT-OH OBNP nt-probnp 3052 pg/mL <300 high NT-pr [...] false negat nadeem resul ts. Not Available [address] [place], [address] 11/18/2023 16:19:23 11/18/19 24 11/18/2023 TSH (W/RE F FT4) TSH (w/ref FT4) 0.49 uIU/m L 0.36-3 .74 normal Not Available [address] [place], [address] 11/18/2023 16:22:20 11/18/19 24 11/18/2023 URINA LYSIS color Yellow yellow Not Available Ethel green [address] [place], [address] 11/18/2023 19:26:06 11/18/19 24 11/18/2023 URINA LYSIS clarity Clear clear Not Available Ethel green [address] [place], [address] 11/18/2023 19:26:06 11/18/19 24 11/18/2023 URINA LYSIS specific gravity 1.015 1.005- 1.025 normal Not Available [address] [place], [address] 11/18/2023 19:26:06 11/18/19 24 11/18/2023 URINA LYSIS pH 6.5 5-8 normal Not Available Ethel green [address] [place], [address] 11/18/2023 19:26:06 11/18/19 24 11/18/2023 URINA LYSIS leukocyte esterase Small negati ve abnormal Not Available [address] [place], [address] 11/18/2023 19:26:06 11/18/19 24 11/18/2023 URINA LYSIS nitrite Negati ve negati ve Not Available [address] [place], [address] 11/18/2023 19:26:06 11/18/19 24 11/18/2023 URINA LYSIS protein Negati ve mg/dL neg-tr patrick Not Available [address] [place], [address] 11/18/2023 19:26:06 11/18/19 24 11/18/2023 URINA LYSIS glucose Negati ve mg/dL negati ve Not Available [address] [place], [address] 11/18/2023 19:26:06 11/18/19 24 11/18/2023 URINA LYSIS ketones Negati ve mg/dL negati ve Not Available [address] [place], [address] 11/18/2023 19:26:06 11/18/19 24 11/18/2023 URINA LYSIS urobilinogen 0.2 mg/dL up to 0.2 Not Available [address] [place], [address] 11/18/2023 19:26:06 11/18/19 24 11/18/2023 URINA LYSIS bilirubin Negati ve negati ve Not Available [address] [place], [address] 11/18/2023 19:26:06 11/18/19 24 11/18/2023 URINA LYSIS blood Negati ve negati ve Not Available [address] [place], [address] 11/18/2023 19:26:06 11/18/19 24 11/18/2023 URINA LYSIS color Yellow yellow Not Available Ethel green [address] [place], [address] 11/18/2023 20:30:25 11/18/19 24 11/18/2023 URINA LYSIS clarity Clear clear Not Available Ethel green [address] [place], [address] 11/18/2023 20:30:25 11/18/19 24 11/18/2023 URINA LYSIS specific gravity 1.015 1.005- 1.025 normal Not Available [address] [place], [address] 11/18/2023 20:30:25 11/18/19 24 11/18/2023 URINA LYSIS pH 6.5 5-8 normal Not Available Ethel green [address] [place], [address] 11/18/2023 20:30:25 11/18/19 24 11/18/2023 URINA LYSIS leukocyte esterase Small negati ve abnormal Not Available [address] [place], [address] 11/18/2023 20:30:25 11/18/19 24 11/18/2023 URINA LYSIS nitrite Negati ve negati ve Not Available [address] [place], [address] 11/18/2023 20:30:25 11/18/19 24 11/18/2023 URINA LYSIS protein Negati ve mg/dL neg-tr patrick Not Available [address] [place], [address] 11/18/2023 20:30:25 11/18/19 24 11/18/2023 URINA LYSIS glucose Negati ve mg/dL negati ve Not Available [address] [place], [address] 11/18/2023 20:30:25 11/18/19 24 11/18/2023 URINA LYSIS ketones Negati ve mg/dL negati ve Not Available [address] [place], [address] 11/18/2023 20:30:25 11/18/19 24 11/18/2023 URINA LYSIS urobilinogen 0.2 mg/dL up to 0.2 Not Available [address] [place], [address] 11/18/2023 20:30:25 11/18/19 24 11/18/2023 URINA LYSIS bilirubin Negati ve negati ve Not Available [address] [place], [address] 11/18/2023 20:30:25 11/18/19 24 11/18/2023 URINA LYSIS blood Negati ve negati ve Not Available [address] [place], [address] 11/18/2023 20:30:25 11/18/19 24 11/18/2023 MICRO SCOPI C FINDI NGS WBC 3-5 hpf 0-5 Not Available Ethel green [address] [place], [address] 11/18/2023 20:30:25 11/18/19 24 11/18/2023 MICRO SCOPI C FINDI NGS RBC Negati ve hpf 0-2 Not Available Joel smith [address] [place], [address] 11/18/2023 20:30:25 11/18/19 24 11/18/2023 MICRO SCOPI C FINDI NGS epithelial cells Many hpf negati ve Not Available [address] [place], [address] 11/18/2023 20:30:25 11/18/19 24 11/18/2023 MICRO SCOPI C FINDI NGS bacteria Few hpf negati ve Not Available [address] [place], [address] 11/18/2023 20:30:25 11/18/19 24 11/18/2023 MICRO SCOPI C FINDI NGS crystals Negati ve hpf negati ve Not Available [address] [place], [address] 11/18/2023 20:30:25 11/18/19 24 11/18/2023 MICRO SCOPI C FINDI NGS mucus Trace negati ve Not Available [address] [place], [address] 11/18/2023 20:30:25 11/18/19 24 11/18/2023 MICRO SCOPI C FINDI NGS C S indicated? No Not Available [address] [place], [address] 11/18/2023 20:30:25 11/18/19 24 11/18/2023 TROPO LUCIA I troponin I < 50 NG/L < or =60 Not Available [address] [place], [address] 11/18/2023 22:25:47 11/18/19 24 11/18/2023 VENOU S BLOOD GAS pH (venous) 7.45 7.31-7 .41 high Not Available [address] [place], [address] 11/18/2023 23:12:54 11/18/19 24 11/18/2023 VENOU S BLOOD GAS pCO2 (venous) 44 mmHg 41-51 normal Not Available [address] [place], [address] 11/18/2023 23:12:54 11/18/19 24 11/18/2023 VENOU S BLOOD GAS pO2 (venous) 37 mmHg Not Available [address] [place], [address] 11/18/2023 23:12:54 11/18/19 24 11/18/2023 VENOU S BLOOD GAS TCO2 (venous) 28 mmol/ L 24-29 normal Not Available [address] [place], [address] 11/18/2023 23:12:54 11/18/19 24 11/18/2023 VENOU S BLOOD GAS HCO3 (venous) 30 mmol/ L 23-28 high Not Available [address], [address] 11/18/2023 23:12:54 11/18/19 24 11/18/2023 VENOU S BLOOD GAS BE (venous) 6 mmol/ L -2-3 high Not Available [address], [address] 11/18/2023 23:12:54 11/18/19 24 11/18/2023 VENOU S BLOOD GAS O2 sat (venous) 74 % Not Available Ariela avitia [address] [place], [address] 11/18/2023 23:12:54 11/19/19 24 11/19/2023 COMPL ETE BLOOD COUNT W/DIF F WBC 7.07 10_3/ uL 4.4-10 .8 normal Not Available [address] [place], [address] 11/19/2023 07:03:22 11/19/19 24 11/19/2023 COMPL ETE BLOOD COUNT W/DIF F RBC 2.93 10_6/ uL 3.93-5 .22 low Not Available [address] [place], [address] 11/19/2023 07:03:22 11/19/19 24 11/19/2023 COMPL ETE BLOOD COUNT W/DIF F HGB 9.8 g/dL 11.2-1 5.7 low Not Available [address] [place], [address] 11/19/2023 07:03:22 11/19/19 24 11/19/2023 COMPL ETE BLOOD COUNT W/DIF F HCT 30.5 % 36.0-4 6.0 low Not Available [address] [place], [address] 11/19/2023 07:03:22 11/19/19 24 11/19/2023 COMPL ETE BLOOD COUNT W/DIF F MCV 104 fL 80-95 high Not Available Ethel green [address] [place], [address] 11/19/2023 07:03:22 11/19/19 24 11/19/2023 COMPL ETE BLOOD COUNT W/DIF F MCH 33.4 pg 27.0-3 3.0 high Not Available [address] [place], [address] 11/19/2023 07:03:22 11/19/19 24 11/19/2023 COMPL ETE BLOOD COUNT W/DIF F MCHC 32.1 % 32.0-3 6.0 normal Not Available [address] [place], [address] 11/19/2023 07:03:22 11/19/19 24 11/19/2023 COMPL ETE BLOOD COUNT W/DIF F RDW 14.4 % 11.7-1 4.6 normal Not Available [address] [place], [address] 11/19/2023 07:03:22 11/19/19 24 11/19/2023 COMPL ETE BLOOD COUNT W/DIF F platelet count 112 10_3/ uL 130-40 0 low Not Available [address] [place], [address] 11/19/2023 07:03:22 11/19/19 24 11/19/2023 COMPL ETE BLOOD COUNT W/DIF F MPV 10.8 fL 8.0-11 .0 normal Not Available [address] [place], [address] 11/19/2023 07:03:22 11/19/19 24 11/19/2023 COMPL ETE BLOOD COUNT W/DIF F neutrophils % 74.3 % Not Available [address] [place], [address] 11/19/2023 07:03:22 11/19/19 24 11/19/2023 COMPL ETE BLOOD COUNT W/DIF F lymphocytes % 14.1 % Not Available [address] [place], [address] 11/19/2023 07:03:22 11/19/19 24 11/19/2023 COMPL ETE BLOOD COUNT W/DIF F monocytes % 6.5 % Not Available [address], [address] 11/19/2023 07:03:22 11/19/19 24 11/19/2023 COMPL ETE BLOOD COUNT W/DIF F eosinophils % 4.4 % Not Available [address] [place], [address] 11/19/2023 07:03:22 11/19/19 24 11/19/2023 COMPL ETE BLOOD COUNT W/DIF F basophils % 0.4 % Not Available [address], [address] 11/19/2023 07:03:22 11/19/19 24 11/19/2023 COMPL ETE BLOOD COUNT W/DIF F immature grans % 0.3 % Not Available [address], [address] 11/19/2023 07:03:22 11/19/19 24 11/19/2023 COMPL ETE BLOOD COUNT W/DIF F nucleated RBC 0.0 % 0.0-0. 3 normal Not Available [address], [address] 11/19/2023 07:03:22 11/19/19 24 11/19/2023 COMPL ETE BLOOD COUNT W/DIF F absolute neutrophil count 5.25 10_3/ uL 1.2-6. 7 normal Not Available [address], [address] 11/19/2023 07:03:22 11/19/19 24 11/19/2023 COMPL ETE BLOOD COUNT W/DIF F absolute lymphocyte count 1.00 10_3/ uL 1.2-3. 4 low Not Available [address] [place], [address] 11/19/2023 07:03:22 11/19/19 24 11/19/2023 COMPL ETE BLOOD COUNT W/DIF F absolute monocyte count 0.46 10_3/ uL 0.1-0. 8 normal Not Available [address] [place], [address] 11/19/2023 07:03:22 11/19/19 24 11/19/2023 COMPL ETE BLOOD COUNT W/DIF F absolute eosinophil count 0.31 10_3/ uL 0.0-0. 7 normal Not Available [address], [address] 11/19/2023 07:03:22 11/19/19 24 11/19/2023 COMPL ETE BLOOD COUNT W/DIF F absolute basophil count 0.03 10_3/ uL 0.0-0. 2 normal Not Available [address] [place], [address] 11/19/2023 07:03:22 11/19/19 24 11/19/2023 IRON AND IBCT iron 45 ug/dL 50-170 low Not Available Ethel green [address] [place], [address] 11/19/2023 07:24:25 11/19/19 24 11/19/2023 IRON AND IBCT total iron binding capacity 284 ug/dL 250-45 0 normal Not Available [address] [place], [address] 11/19/2023 07:24:25 11/19/19 24 11/19/2023 IRON AND IBCT transferrin sat 16 % 15-50 normal Not Available Ariela avitia [address] [place], [address] 11/19/2023 07:24:25 11/19/19 24 11/19/2023 BASIC METAB OLIC PANEL calcium 8.5 mg/dL 8.5-10 .1 normal Not Available [address] [place], [address] 11/19/2023 07:49:36 11/19/19 24 11/19/2023 BASIC METAB OLIC PANEL glucose 93 mg/dL 74-106 normal Not Available Ethel green [address] [place], [address] 11/19/2023 07:49:36 11/19/19 24 11/19/2023 BASIC METAB OLIC PANEL BUN 12 mg/dL 7-18 normal Not Available Ethel green [address] [place], [address] 11/19/2023 07:49:36 11/19/19 24 11/19/2023 BASIC METAB OLIC PANEL creatinine 0.8 mg/dL 0.55-1 .02 normal Not Available [address] [place], [address] 11/19/2023 07:49:36 11/19/19 24 11/19/2023 BASIC METAB [...] young er-ag ed adult s. Not Available [address] [place], [address] 11/19/2023 07:49:36 11/19/19 24 11/19/2023 BASIC METAB OLIC PANEL sodium 147 mmol/ L 136-14 5 high Not Available [address] [place], [address] 11/19/2023 07:49:36 11/19/19 24 11/19/2023 BASIC METAB OLIC PANEL potassium 3.2 mmol/ L 3.5-5. 1 low Not Available [address] [place], [address] 11/19/2023 07:49:36 11/19/19 24 11/19/2023 BASIC METAB OLIC PANEL chloride 107 mmol/ L 98-107 normal Not Available [address] [place], [address] 11/19/2023 07:49:36 11/19/19 24 11/19/2023 BASIC METAB OLIC PANEL CO2 31.2 mmol/ L 21.0-3 2.0 normal Not Available [address] [place], [address] 11/19/2023 07:49:36 11/19/19 24 11/19/2023 BASIC METAB OLIC PANEL anion gap 8.8 mmol/ L 3-11 normal Not Available [address] [place], [address] 11/19/2023 07:49:36 11/19/19 24 11/19/2023 DANIEL TIN ferritin 169 NG/mL 8-252 normal Not Available [address] [place], [address] 11/19/2023 07:49:36 11/19/19 24 11/19/2023 MAGNE SIUM magnesium 1.8 mg/dL 1.8-2. 4 normal Not Available [address] [place], [address] 11/19/2023 07:49:37 11/19/19 24 11/19/2023 VITAM IN B12 vitamin B12 1124 pg/mL 193-98 6 high Not Available [address] [place], [address] 11/19/2023 07:49:37 11/19/19 24 11/19/2023 FOLAT E folate 19.3 NG/mL 8.6-20 .0 normal Not Available [address] [place], [address] 11/19/2023 07:49:37 11/19/19 24 11/20/2023 TRANS DANIEL N transferrin 188 mg/dL 201-35 2 abnormal Test perfo rmed or refer red by [facility] [address] [place] [address] Not Available [address], [address] 11/23/2023 12:15:30 11/20/19 24 11/20/2023 BASIC METAB OLIC PANEL calcium 8.9 mg/dL 8.5-10 .1 normal Not Available [address] [place], [address] 11/20/2023 07:12:43 11/20/19 24 11/20/2023 BASIC METAB OLIC PANEL glucose 115 mg/dL 74-106 high Not Available Ethel green [address] [place], [address] 11/20/2023 07:12:43 11/20/19 24 11/20/2023 BASIC METAB OLIC PANEL BUN 19 mg/dL 7-18 high Not Available Ethel green [address] [place], [address] 11/20/2023 07:12:43 11/20/19 24 11/20/2023 BASIC METAB OLIC PANEL creatinine 1.0 mg/dL 0.55-1 .02 normal Not Available [address] [place], [address] 11/20/2023 07:12:43 11/20/19 24 11/20/2023 BASIC METAB [...] young er-ag ed adult s. Not Available [address] [place], [address] 11/20/2023 07:12:43 11/20/19 24 11/20/2023 BASIC METAB OLIC PANEL sodium 140 mmol/ L 136-14 5 normal Not Available [address] [place], [address] 11/20/2023 07:12:43 11/20/19 24 11/20/2023 BASIC METAB OLIC PANEL potassium 3.6 mmol/ L 3.5-5. 1 normal Not Available [address] [place], [address] 11/20/2023 07:12:43 11/20/19 24 11/20/2023 BASIC METAB OLIC PANEL chloride 100 mmol/ L 98-107 normal Not Available [address] [place], [address] 11/20/2023 07:12:43 11/20/19 24 11/20/2023 BASIC METAB OLIC PANEL CO2 33.2 mmol/ L 21.0-3 2.0 high Not Available [address] [place], [address] 11/20/2023 07:12:43 11/20/19 24 11/20/2023 BASIC METAB OLIC PANEL anion gap 6.8 mmol/ L 3-11 normal Not Available [address] [place], [address] 11/20/2023 07:12:43 12/02/19 24 12/02/2023 BASIC METAB OLIC PANEL calcium 9.8 mg/dL 8.5-10 .1 normal Not Available [address] [place], [address] 12/02/2023 16:25:21 12/02/19 24 12/02/2023 BASIC METAB OLIC PANEL glucose 104 mg/dL 74-106 normal Not Available Ethel green [address] [place], [address] 12/02/2023 16:25:21 12/02/19 24 12/02/2023 BASIC METAB OLIC PANEL BUN 20 mg/dL 7-18 high Not Available Ethel green [address] [place], [address] 12/02/2023 16:25:21 12/02/19 24 12/02/2023 BASIC METAB OLIC PANEL creatinine 1.1 mg/dL 0.55-1 .02 high Not Available [address], [address] 12/02/2023 16:25:21 12/02/19 24 12/02/2023 BASIC METAB [...] young er-ag ed adult s. Not Available [address], [address] 12/02/2023 16:25:21 12/02/19 24 12/02/2023 BASIC METAB OLIC PANEL sodium 143 mmol/ L 136-14 5 normal Not Available [address] [place], [address] 12/02/2023 16:25:21 12/02/19 24 12/02/2023 BASIC METAB OLIC PANEL potassium 4.6 mmol/ L 3.5-5. 1 normal Not Available [address] [place], [address] 12/02/2023 16:25:21 12/02/19 24 12/02/2023 BASIC METAB OLIC PANEL chloride 106 mmol/ L 98-107 normal Not Available [address], [address] 12/02/2023 16:25:21 12/02/19 24 12/02/2023 BASIC METAB OLIC PANEL CO2 29.1 mmol/ L 21.0-3 2.0 normal Not Available [address] [place], [address] 12/02/2023 16:25:21 12/02/19 24 12/02/2023 BASIC METAB OLIC PANEL anion gap 7.9 mmol/ L 3-11 normal Not Available [address] [place], [address] 12/02/2023 16:25:21 12/02/19 24 12/02/2023 MAGNE SIUM magnesium 1.8 mg/dL 1.8-2. 4 normal Not Available [address] [place], [address] 12/02/2023 16:25:22 12/02/19 24 12/02/2023 NT-OH OBNP nt-probnp 2190 pg/mL <300 high NT-pr [...] false negat nadeem resul ts. Not Available [facility] (Registration ) [address] [place] [address] [place], [address], 12/02/2023 16:25:22 12/02/19 24 12/02/2023 COMPL ETE BLOOD COUNT NO DIFF WBC 7.43 10_3/ uL 4.4-10 .8 normal Not Available [address] [place], [address] 12/02/2023 16:35:23 12/02/19 24 12/02/2023 COMPL ETE BLOOD COUNT NO DIFF RBC 3.18 10_6/ uL 3.93-5 .22 low Not Available [address] [place], [address] 12/02/2023 16:35:23 12/02/19 24 12/02/2023 COMPL ETE BLOOD COUNT NO DIFF HGB 10.6 g/dL 11.2-1 5.7 low Not Available [address] [place], [address] 12/02/2023 16:35:23 12/02/19 24 12/02/2023 COMPL ETE BLOOD COUNT NO DIFF HCT 33.5 % 36.0-4 6.0 low Not Available [address], [address] 12/02/2023 16:35:23 12/02/19 24 12/02/2023 COMPL ETE BLOOD COUNT NO DIFF MCV 105 fL 80-95 high 1+ macro cytos is Not Available [address] [place], [address] 12/02/2023 16:35:23 12/02/19 24 12/02/2023 COMPL ETE BLOOD COUNT NO DIFF MCH 33.3 pg 27.0-3 3.0 high Not Available [address] [place], [address] 12/02/2023 16:35:23 12/02/19 24 12/02/2023 COMPL ETE BLOOD COUNT NO DIFF MCHC 31.6 % 32.0-3 6.0 low Not Available [address] [place], [address] 12/02/2023 16:35:23 12/02/19 24 12/02/2023 COMPL ETE BLOOD COUNT NO DIFF RDW 13.3 % 11.7-1 4.6 normal Not Available [address] [place], [address] 12/02/2023 16:35:23 12/02/19 24 12/02/2023 COMPL ETE BLOOD COUNT NO DIFF platelet count 140 10_3/ uL 130-40 0 normal Not Available [address] [place], [address] 12/02/2023 16:35:23 12/02/19 24 12/02/2023 COMPL ETE BLOOD COUNT NO DIFF MPV 11.8 fL 8.0-11 .0 high Not Available [address] [place], [address] 12/02/2023 16:35:23 04/18/20 24 04/18/2024 COMPL ETE BLOOD COUNT NO DIFF WBC 6.58 10_3/ uL 4.4-10 .8 normal Not Available [address] [place], [address] 04/18/2024 15:08:25 04/18/20 24 04/18/2024 COMPL ETE BLOOD COUNT NO DIFF RBC 3.70 10_6/ uL 3.93-5 .22 low Not Available [address] [place], [address] 04/18/2024 15:08:25 04/18/20 24 04/18/2024 COMPL ETE BLOOD COUNT NO DIFF HGB 12.0 g/dL 11.2-1 5.7 normal Not Available [address] [place], [address] 04/18/2024 15:08:25 04/18/20 24 04/18/2024 COMPL ETE BLOOD COUNT NO DIFF HCT 38.0 % 36.0-4 6.0 normal Not Available [address] [place], [address] 04/18/2024 15:08:25 04/18/20 24 04/18/2024 COMPL ETE BLOOD COUNT NO DIFF MCV 103 fL 80-95 high Not Available [address] [place], [address] 04/18/2024 15:08:25 04/18/20 24 04/18/2024 COMPL ETE BLOOD COUNT NO DIFF MCH 32.4 pg 27.0-3 3.0 normal Not Available [address] [place], [address] 04/18/2024 15:08:25 04/18/20 24 04/18/2024 COMPL ETE BLOOD COUNT NO DIFF MCHC 31.6 % 32.0-3 6.0 low Not Available [address] [place], [address] 04/18/2024 15:08:25 04/18/20 24 04/18/2024 COMPL ETE BLOOD COUNT NO DIFF RDW 15.6 % 11.7-1 4.6 high Not Available [address] [place], [address] 04/18/2024 15:08:25 04/18/20 24 04/18/2024 COMPL ETE BLOOD COUNT NO DIFF platelet count 124 10_3/ uL 130-40 0 low Not Available [address] [place], [address] 04/18/2024 15:08:25 04/18/20 24 04/18/2024 COMPL ETE BLOOD COUNT NO DIFF MPV 11.2 fL 8.0-11 .0 high Not Available [address] [place], [address] 04/18/2024 15:08:25 04/18/20 24 04/18/2024 IRON AND IBCT iron 65 ug/dL 50-170 normal Not Available [facility] (Registration ) [address] [place] [address] [place], [address], 04/18/2024 16:07:17 04/18/20 24 04/18/2024 IRON AND IBCT total iron binding capacity 318 ug/dL 250-45 0 normal Not Available [facility] (Registration ) [address] [place] [address] [place], [address], 04/18/2024 16:07:17 04/18/20 24 04/18/2024 IRON AND IBCT transferrin sat 20 % 15-50 normal Not Available [facility] (Registration ) [address] [place] [address] [place], [address], 04/18/2024 16:07:17 04/18/20 24 04/18/2024 BASIC METAB OLIC PANEL calcium 9.4 mg/dL 8.5-10 .1 normal Not Available [facility] (Registration ) [address] [place] [address] [place], [address], 04/18/2024 16:09:17 04/18/20 24 04/18/2024 BASIC METAB OLIC PANEL glucose 103 mg/dL 74-106 normal Not Available [facility] (Registration ) [address] [place] [address] [place], [address], 04/18/2024 16:09:17 04/18/20 24 04/18/2024 BASIC METAB OLIC PANEL BUN 21 mg/dL 7-18 high Not Available [facility] (Registration ) [address] [place] [address] [place], [address], 04/18/2024 16:09:17 04/18/20 24 04/18/2024 BASIC METAB OLIC PANEL creatinine 1.0 mg/dL 0.55-1 .02 normal Not Available [facility] (Registration ) [address] [place] [address] [place], [address], 04/18/2024 16:09:17 04/18/20 24 04/18/2024 BASIC METAB [...] young er-ag ed adult s. Not Available [facility] (Registration ) [address] [place] [address] [place], [address], 04/18/2024 16:09:17 04/18/20 24 04/18/2024 BASIC METAB OLIC PANEL sodium 145 mmol/ L 136-14 5 normal Not Available [facility] (Registration ) [address] [place] [address] [place], [address], 04/18/2024 16:09:17 04/18/20 24 04/18/2024 BASIC METAB OLIC PANEL potassium 4.2 mmol/ L 3.5-5. 1 normal Not Available [facility] (Registration ) [address] [place] [address] [place], [address], 04/18/2024 16:09:17 04/18/20 24 04/18/2024 BASIC METAB OLIC PANEL chloride 107 mmol/ L 98-107 normal Not Available [facility] (Registration ) [address] [place] [address] [place], [address], 04/18/2024 16:09:17 04/18/20 24 04/18/2024 BASIC METAB OLIC PANEL CO2 31.4 mmol/ L 21.0-3 2.0 normal Not Available [facility] (Registration ) [address] [place] [address] [place], [address], 04/18/2024 16:09:17 04/18/20 24 04/18/2024 BASIC METAB OLIC PANEL anion gap 6.6 mmol/ L 3-11 normal Not Available [facility] (Registration ) [address] [place] [address] [place], [address], 04/18/2024 16:09:17 04/18/20 24 04/18/2024 DANIEL TIN ferritin 211 NG/mL 8-252 normal Not Available [facility] (Registration ) [address] [place] [address] [place], [address], 04/18/2024 16:09:18 04/18/20 24 04/18/2024 TSH (W/RE F FT4) TSH (w/ref FT4) 2.17 uIU/m L 0.36-3 .74 normal NOTE: Supra -phys iolog ic doses of Bioti n(B7) may cause false negat nadeem resul ts. Not Available [facility] (Registration ) [address] [place] [address] [place], [address], 04/18/2024 16:09:18 04/18/20 24 04/18/2024 VITAM IN D 25 TOTAL vitamin D 25 total 63.9 NG/mL 30-100 normal Refer ence Guide lines : Defic ient: <10 ng/ml Insuf ficie nt: 10-30 ng/ml Suffi cient : 30-10 0 ng/ml Toxic : >100 ng/ml Not Available [address] [place], [address] 04/18/2024 16:09:19 04/18/20 24 04/18/2024 HEMOG LOBIN A1C hemoglobin A1C 5.4 % <5.7 Refer ence Range s <5.7 Lisa l 5.7-6 .4% Predi abete s 6.5% or great er Diagn ostic for diabe jasson (if confi rmed) Refer ences : 1. Ameri can Diabe jasson Assoc iatio n. Clas sific ation and Diagn osis of Diabe jasosn. Diabe jasson Care 2019 May;4 2(Sup pleme nt 1):S1 3-s28 . Not Available [facility] (Registration ) [address] , [place], [address], 04/18/2024 16:21:24 10/14/19 24 10/14/2023 elect rocar diogr am No observ ation record ed. [facility] [address] , [place], [address], 10/14/2023 11:56:20 10/14/19 24 elect rocar diogr am No observ ation record ed. Not Available 2023 10:55:07 11/04/19 24 10/14/2023 rhyth m strip , EKG* No observ ation record ed. [email or web address] Not Available 2023 10:18:08 11/18/19 24 11/18/2023 US, duple x, lower extre mity Patien t Name: Rema Olson Unit #: [id number] Loc: ER Sonal salazar [facility] er: Braydon Doyle Accoun t #: [id number] Status : REG ER Primar y Care [facility] er: Erich Her M.D. Date of [...] tation , and color Dopple r. The adjunct art history instructor ior tibial veins are patent . IMPRES [...] error, please notify us immedi ately at [phone] and return the origin al report to us at the addres s above. Thank- you. [facility] [address], [place], [address] 11/18/2023 16:48:49 11/18/19 24 11/18/2023 CT imagi martin hackett Name: Rema Olson Unit #: [id number] Loc: ER Sonal salazar Provid er: Braydon Doyle Accoun t #: [id number] Status : REG ER Primar y Care [...] interl obular septal thicke jama greate r adjunct art history instructor iorly which could indica te mild CHF. No consol idatio n or domina nt measur able mass. Pleura : Small left pleura l effusi on. Heart: The heart is modera tely dilate d. 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 Minima l [...] . Small perica rdial effusi on seen adjunct art history instructor iorly. Small left pleura l effusi on. [...] error, please notify us immedi polo at [phone] and return the origin al report to us at the addres s above. Thank- you. [facility] [address], [place], [address] 11/19/2023 12:12:11 11/19/19 24 11/19/2023 ultra sound imagi martin repor roxann hackett Name: Rema Olson Unit #: [id number] Loc: MS Sonal salazar Provid er: Huseyin Bolaños M.D. Accoun t #: [id number] Status : ADM IN Primar y [...] error, please notify us immedi ately at [phone] and return the origin al report to us at the addres s above. Thank- you. [place] [id number] [facility] [place], [address] 11/19/2023 12:12:11 01/18/20 24 11/15/2018 imagi ng/di [...] 00:48:42 01/18/20 24 06/25/2022 MAMMO , scree ajma No observ ation record ed. Not Available [...] humeral fracture 2023- MD [address], [place], [address] , [facility] 4 17:34:10 Hypothyr oidism 26943843 Active 1959 EVIE shaw, [facility] 4 10:29:59 [facility] hyperten jason 55058855 Active 1959 EVIE shaw, [facility] 4 10:29:36 Hyperlip idemia 69468545 Active 1959 on statin MD [address], [place], [address] , [facility] 4 20:35:18 Spinal stenosis of lumbar region 85720644 Active 2012 s/p lumbar for[place] L4 MD [address], [place], [address] , [facility] 4 20:36:41 Sleep apnea 29550876 Active 2012 on CPAP MD [address], [place], [address] , [facility] 4 20:39:31 Gastroes ophageal reflux disease without esophagi tis 521971976 Completed 195908/12/2023 Removal Reason: resolved with surgical repair of HH MD [address], [place], [address] , [facility] 4 10:41:24 Family history of malignan t neoplasm of digestiv e organ 884308100 Active [address], [place], [address] , [facility] 4 20:37:03 Paresthe samir 47633249 Completed 201412/01/2014 11/28/19 15 - Comments only - Erich Her MD - check B12 and folate Problem Code: R20.2; Problem Code Type: ICD-10; Not Available [facility] 3 05:53:48 Adult health examinat ion Active [address], [place], [address] , [facility] 4 20:33:34 Pre-surg ruben evaluati on [...] Z01.818; Problem Code Type: ICD-10; Not Available [facility] 3 05:53:48 Localize d edema 915094372 Completed 201501/29/2016 12/13/19 16 - Comments only - Erich Her MD - and some on left as well, will check BMP. 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 Nusrat holt for removal. Problem Code: L72.3; Problem Code Type: ICD-10; Not Available [facility] 3 05:53:49 Chronic ulcer of foot 045567699 Completed 201601/16/2017 12/18/19 17 - Comments only - Erich Her MD - Due to injury. This does appear to have some granulat ion tissue and to be healing. She is given a prescrip tion for Keflex to take only if erythema seems to be extendin g. Problem Code: L97.509; Problem Code Type: ICD-10; Not Available [facility] 3 05:53:49 Diarrhea [id number] Completed 201602/10/2017 02/05/20 17 - Comments only - Erich Her MD - [facility] over several months, we will collect stool for C. 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 6 mm PT1NO E2P2 poistive , HER2 negative ERICH HER MD 165 [address], [place], [address] , [facility] 4 20:38:49 Pain in left lower limb 682790897 Active 2016 EVIE shaw, [facility] 4 10:32:00 Pain in thoracic spine 934059357 Active 2016 EVIE shaw, [facility] 4 10:32:06 Spasm 89726211 Active 2017 EVIE shaw, [facility] 4 10:33:28 Abdomina l distensi on, gaseous 162859500 Completed 201703/08/2018 Problem Code: R14.0; Problem Code Type: ICD-10; Not Available [facility] 3 05:53:50 Cellulit is of toe 26233617 Completed 201808/12/2018 Problem Code: L03.039; Problem Code Type: ICD-10; Not Available [facility] 3 05:53:51 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 4 14:36:02 Tachsrinivas lea 1347263 Completed 201811/25/2018 Problem Code: R00.0; Problem Code Type: ICD-10; Not Available [facility] 3 05:53:51 Pre-surg ruben evaluati on Completed 201811/25/2018 Problem Code: Z01.818; Problem Code Type: ICD-10; Not Available [facility] 3 05:53:51 Iron deficien cy anemia 53740759 Active 2019 elevated MCV: normal B12 2021, normal folate 2018 IV iron 2023 EGD 01/2022 paraesop hageal hernia (since repaired ) colo 03/2017 normal ERICH HER MD [facility] [address], [place], [address] , [facility], [facility]. 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 - Likely aggravat ed by increase d [...] M54.40; Problem Code Type: ICD-10; Not Available [facility] 3 05:53:52 Right side sciatica 15258114659 9101 Active 2019 EVIE RUFUS shaw, [facility] 4 10:33:09 Left side sciatica 34275682110 9104 Active [address], [facility] [address] , [facility] 4 17:20:20 Diaphrag matic hernia 53075154 Completed 202108/11/2023 Removal Reason: s/p repair MD Young [address], [facility] [address] , [facility] 4 20:50:39 History of SARS-CoV -2 19127468939 1657971 Completed 202104/04/2022 03/21/20 22 - Comments only - Erich Her MD - testing is negative today in the office. Still some fatigue but otherwis e recoveri ng. Did get MAB. Already had covid bivalent booster prior to illness Problem Code: Z86.16; Problem Code Type: ICD-10; Not Available [facility] 3 05:53:53 Diarrhea 98401387 Completed 202104/18/2022 Problem Code: R19.7; Problem Code Type: ICD-10; MD Young [address], [facility] [address] , [facility] 4 21:03:02 Screenin g mammogra phy Completed 202208/11/[address], [facility] [address] , [facility] 4 20:36:56 Carpal tunnel syndrome of left wrist 71342700605 9102 Completed 202201/23/2023 Problem Code: G56.02; Problem Code Type: ICD-10; Not Available [facility] 4 05:37:46 Diarrhea 69779954 Active 2022 started colestip ol 01/2023 ERICH HER MD [address], [place], [address] , [facility]. 4 21:03:02 Carpal tunnel syndrome of right wrist 68752042833 9108 Completed 201803/19/2020 Problem Code: G56.01; Problem Code Type: ICD-10; Not Available [facility] 3 05:53:55 Pain of left knee joint 64257171628 4107 Completed 202107/30/2022 Problem Code: M25.562; Problem Code Type: ICD-10; Not Available [facility] 3 05:53:55 Hypersom korina 26915636 Completed 201311/27/2014 Problem Code: 780.54; Problem Code Type: ICD-9; Not Available [facility] 3 05:53:56 Screenin g for disorder Completed 201909/11/2021 Problem Code: Z13.9; Problem Code Type: ICD-10; Not Available [facility] 3 05:53:56 Anemia 387467669 Completed 201903/19/2020 Problem Code: D64.9; Problem Code Type: ICD-10; Not Available [facility] 3 05:53:56 Long-ter m current use of anticoag ulant 935318279 Completed 201709/01/2018 Problem Code: Z79.01; Problem Code Type: ICD-10; Not Available [facility] 3 05:53:57 Chronic rhinitis 83407833 Completed 202108/12/2021 Problem Code: J31.0; Problem Code Type: ICD-10; Not Available [facility] 3 05:53:57 Impaired fasting glycemia 477703805 Completed 201401/28/2023 Not Available [facility] 3 05:53:57 Fatigue 29685973 Completed 201903/19/2020 Problem Code: R53.83; Problem Code Type: ICD-10; Not Available [facility] 3 05:53:58 Upper respirat ory tract infectio n caused by Influenz a A 93206432239 9104 Completed 201707/02/2017 Problem Code: J09.x2; Problem Code Type: ICD-10; Not Available [facility] 3 05:53:59 Diarrhea 98172124 Completed 201709/01/2018 ERICH HER MD [facility] [address], [place], [address] [facility] 4 21:03:02 Acute upper respirat ory infectio n 22096160 Completed 202108/26/2021 Problem Code: J06.9; Problem Code Type: ICD-10; Not Available [facility] 3 05:53:59 Pain in right foot 43667785704 9107 Completed 202207/30/2022 Problem Code: M79.671; Problem Code Type: ICD-10; Not Available [facility] 3 05:54:00 Breast composit ion 483335581 Completed 201601/28/2023 Not Available [facility] 3 05:54:00 Changes in skin texture 136471238 Completed 202207/30/2022 Problem Code: R23.4; Problem Code Type: ICD-10; Not Available [facility] 3 05:54:01 Spasm 27975114 Completed 201603/23/2017 Problem Code: R25.2; Problem Code Type: ICD-10; EVIE shaw [facility] 4 10:33:28 Hyperten sive disorder 92085064 Completed 11/28/19 15 - Comments only - Erich Her MD - [facility] ed, no change in medicati ons Not Available [facility] 3 05:54:03 Arthralg ia of the ankle and/or foot 790670585 Completed 201501/30/2016 Problem Code: M25.571; Problem Code Type: ICD-10; Not Available [facility] 3 05:54:03 Dyspnea 536210149 Completed 201903/19/2020 Problem Code: R06.02; Problem Code Type: ICD-10; Danica shaw [facility] 4 14:39:47 Trigger finger of right hand 67193773965 236360 Completed 201803/19/2020 Problem Code: M65.341; Problem Code Type: ICD-10; Not Available [facility] 3 05:54:06 Cough 51029066 Completed 202108/12/2021 Problem Code: R05.1; Problem Code Type: ICD-10; Not Available [facility] 3 05:54:06 At risk - finding 825177050 Completed 201811/11/2018 Problem Code: Z91.89; Problem Code Type: ICD-10; Not Available [facility] 3 05:54:06 Cough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
--- OUTSIDE RECORDS SUMMARY | 2024-04-29 11:06 | XMS_ITS | Encounter Summary ---
[place] [address] Care Team Providers Care Patient Attendant Name Role Phone Ana Her MD Primary Care Provider [phone] Reason for Visit * Auth/Cert Specialty Diagnoses / Procedures Referred By Christiano hackett Referred To Contact Diagnoses S/P repair of paraesophageal hernia Post-Op monitoring Procedures PRO LAPARSCOPY REPAIR PARAESOPHAGEAL HERNIA INCL FUNDOPLASTY W/O MESH LAPAROSCOPIC PARAESOPHAGEAL HERNIA REPAIR W/FUNDOPLASTY, W/O MESH (WRVU 26.6) MODIFIER TOUPET FUNDOPLASTY Shania Will MD [facility] [place] [address] [facility] Referral ID Status Reason Start Date Expiration Date Visits Re quested Visits Authorized [id number] 1 1 Encounter Details Date Type Department Care Team (Late st Contact Info) Description 03/05/2022 12:54 PM EDT - 03/05/2022 4:55 PM EDT Surgery [place] [id number] Shania Will MD [facility] [place] [address] LAPAROSCOPIC PARAESOPHAGEAL HERNIA REPAIR W/FUNDOPLASTY, W/O MESH [...] 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 Anemia D64.9 ??? Aortic valve [...] Per chart review, her creatinine levels in 2257-3380 ranged from 0.87-1.50 indicative of possible undiagnosed [...] MD General Surgery at [facility] Arrive at: Russian Language Professor Area [phone] Instructions Given to Patient at Discharge: Patient [...] hours please call the Surgery Clinic at [phone] before 5 PM on weekdays. For questions after hours and on weekends please call the hospital irish moss operator at [phone] and ask for the General Surgery resident police matron. They may not be familiar with your [...] post Sly diet, as instructed by the automotive service cashier in the hospital for a period of [...] renal function. Please call the clinic at [phone] to confirm or reschedule. Future Appointments Date Time Provider Department Center 04/03/2022 12:[address] [facility] SURG [facility] General Instructions None Future Appointments and Orders Future Appointments and Orders Future Appointments Provider Department Dept Phone 04/03/2022 12:00 PM Shania Will MD General Surgery at [facility] Arrive at: Russian Language Professor Area 4L [phone] Signed: Shena Harden MD 03/07/22 7:18 AM [phone] Primary Saima Physician: MD Geovany David DR [facility] [id number] documented in this encounter Discharge Instructions * [...] hours please call the Surgery Clinic at [phone] before 5 PM on weekdays. For questions after hours and on weekends please call the hospital irish moss operator at [phone] and ask for the General Surgery resident police matron. They may not be familiar with your [...] post Sly diet, as instructed by the automotive service cashier in the hospital for a period of [...] renal function. Please call the clinic at [phone] to confirm or reschedule. Future Appointments Date Time Provider Department Center 04/03/2022 12:[address] [facility] SURG [facility] documented in this [...] Ocampo RN - 03/07/2022 10:25 AM EDT [facility] Short Stay Unit Discharge Note [...] Sly Diet Education to pt Digna Olson. Mixer Operator Vacuum Pan Salt metwith pt at bedside to deliver full [...] she is noticing some overall improvement post op.Mixer Operator Vacuum Pan Salt took note of this and encouraged the [...] Department contact information provided. Pt appreciate of video game script writer's time. Nutrition to follow as needed. 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 Anemia D64.9 ??? Aortic valve [...] 6.43) performed by Malika Chen MD at [facility] MAIN OR ??? PRO INTRAOP SENTINEL LYMPH ID W/DYE INJECTION Left 03/30/2017 ?? INTRAOPERATIVE ID (MAPPING) SENTINEL LYMPH NODE,INCLUDES INJECTION (WRVU 2.5) performed by Malika Chen MD at [facility] MAIN OR ??? PRO MASTECTOMY PARTIAL Left 03/30/2017 ?? MASTECTOMY PARTIAL (WRVU 10.13) performed by Malika Chen MD at [facility] MAIN OR ?? Cholecystectomy ?? [...] Operative Note Patient Name: Digna Olson : [id number] MR#: [id number] Case Date: 03/05/2022 Surgeon: Surgeon(s) and Role: [...] 03/05/2022 2:[address] [facility] Operative Note Patient Name: Digna Olson : [id number] MR#: [id number] Case Date: 03/05/2022 Surgeon: Surgeon(s) and Role: [...] mediastinal dissection to mobilize the esophagus. A Hammond which was placed around the esophagus was [...] not need to include opening and closing). Jenniefr Flores MD 03/05/2022 documented in this encounter [...] Repair Paraesophageal Hernia Incl Fundoplasty W/O Mesh (68369) 03/05/2022 1:58 PM EDT Paraesophageal Hernia POCT GLUCOSE Routine 03/05/2022 12:18 PM EDT LAPAROSCOPIC PARAESOPHAGEAL HERNIA REPAIR W FUNDOPLASTY, W/O MESH Routine 03/05/2022 12:02 PM EDT documented in this encounter Results * (ABNORMAL) Differential, Automated (03/07/2022 5:08 AM EDT) Neutrophil % 80.0 % [facility] Neutrophil Absolute 5.30 1.70 - 6.10 x10(3)/mc L [facility] Lymph % 12.1 % [facility] Lymphocytes Abs 0.8(L) 0.9 - 3.2 x10(3)/mc L [facility] Monocyte % 7.6 % [facility] Monocyte Abs 0.5 0.3 - 0.9 x10(3)/mc L [facility] Eos % 0.0 % [facility] Eosinophils Abs 0.0 0.0 - 0.4 x10(3)/[facility] Basophil % 0.0 % [facility] Baso Absolute 0.0 0.0 - 0.1 x10(3)/[facility] Immature Gran % 0.30 % [facility] Comment: Immature granulocytes(IG's)percentage and absolute count will include metamyelocytes, myelocytes, and promyelocytes. Blood smears from CBCs yielding IG's will be scanned manually for concordance. If this scan disagrees with the automated IG or if promyelocytes are noted, a manual differential will be performed. Immature Gran Absolute 0.02 0.00 - 0.04 x10(3)/[facility] Blood 03/07/2022 5:08 AM EDT 03/07/2022 5:19 AM EDT Narrative Resulting Agency Comment Spec In Lab Nino Levy MD HEMATOLOGY ORDERABLE S [facility] [place] [address] * (ABNORMAL) Hemogram (03/07/2022 5:08 AM EDT) White Blood Cell 6.6 4.0 - 9.5 x10(3)/[facility] Red Blood Cell 3.16(L) 4.00 - 5.21 x10(6)/[facility] Hemoglobin 10.7(L) 11.7 - 15.5 g/dL [facility] Hematocrit 31.7(L) 35.7 - 45.8 % [facility] Mean Cell Volume 100.3(H) 82.6 - 94.4 fL [facility] Mean Cell Hemoglobin 33.9(H) 27.1 - 32.0 pg [facility] Mean Cell Hemoglobin Concentration 33.8 31.7 - 35.0 g/dL [facility] Platelet 110(L) 145 - 357 x10(3)/mc L [facility] RDW Standard Deviation 47.5(H) 37.0 - 46.0 [facility] RDW coefficient of variation 12.9 11.5 - 14.1 % [facility] Mean Platelet Volume 11.7 7.6 - 12.9 [facility] NRBC% auto 0.0 % [facility] NRBC Absolute 0.000 0.000 - 0.000 x10(3)/mc L [facility] Blood 03/07/2022 5:08 AM EDT 03/07/2022 5:19 AM EDT Narrative Resulting Agency Comment Spec In Lab Nino Levy MD HEMATOLOGY ORDERABLE S Performing Organization Address City/[facility]/[place] [address] * Phosphorus (03/07/2022 5:08 AM EDT) Phosphorus 2.7 2.5 - 4.5 mg/dL [facility] Blood 03/07/2022 5:08 AM EDT 03/07/2022 5:19 AM EDT Narrative Resulting Agency Comment Spec In Lab Shania iWll MD CHEMISTRY ORDERABLE S Performing Organization Address City/[facility]/ZIP Co de Phone Number [facility] [place] [address] * Magnesium (03/07/2022 5:08 AM EDT) Magnesium 0.89 0.69 - 1.07 mmol/L [facility] Blood 03/07/2022 5:08 AM EDT 03/07/2022 5:19 AM EDT Narrative Resulting Agency Comment Spec In Lab Shania Will MD CHEMISTRY ORDERABLE S [facility] [place] [address] * (ABNORMAL) Basic Metabolic Panel (non-fasting) (03/07/2022 5:08 AM EDT) Glucose 111 65 - 199 mg/dL [facility] Comment:Diabetes: >=200 mg/d L plus symptoms Blood Urea Nitrogen 22(H) 8 - 18 mg/dL [facility] Creatinine 0.93 0.70 - 1.20 mg/dL [facility] Sodium 131(L) 135 - 145 mmol/L [facility] Potassium 4.5 3.5 - 5.0 mmol/L [facility] Comment: Please note: ??Patients with WBC >100,000 may have falsely elevated Potassium levels. ??For accurate Potassium quantification in these patients send serum separator tube (gold top) for subsequent determinations. ??Contact the Clinical Chemistry Laboratory if there are any questions. Chloride 100 98 - 107 mmol/L [facility] Carbon Dioxide 22 22 - 31 mmol/L [facility] Anion Gap 9 5 - 15 mmol/L [facility] Calcium 9.2 8.5 - 10.5 mg/dL [facility] Est Glomerular Filtration Rate 64 >=60 mL/min/1. 73 m?? [facility] Comment: This patient's estimated [...] MD CHEMISTRY ORDERABLE S Performing Organization Address City/[facility]/ZIP Co de Phone Number [facility] [place] [address] * (ABNORMAL) Differential, Automated (03/06/2022 10:15 AM EDT) Neutrophil % 90.7 % [facility] Neutrophil Absolute 5.79 1.70 - 6.10 x10(3)/mc L [facility] Lymph % 5.0 % [facility] Lymphocytes Abs 0.3(L) 0.9 - 3.2 x10(3)/mc L [facility] Monocyte % 3.8 % [facility] Monocyte Abs 0.2(L) 0.3 - 0.9 x10(3)/mc L [facility] Eos % 0.0 % [facility] Eosinophils Abs 0.0 0.0 - 0.4 x10(3)/[facility] Basophil % 0.0 % [facility] Baso Absolute 0.0 0.0 - 0.1 x10(3)/ L [facility] Immature Gran % 0.50 % [facility] Comment: Immature granulocytes(IG's)percentage and absolute count will include metamyelocytes, myelocytes, and promyelocytes. Blood smears from CBCs yielding IG's will be scanned manually for concordance. If this scan disagrees with the automated IG or if promyelocytes are noted, a manual differential will be performed. Immature Gran Absolute 0.03 0.00 - 0.04 x10(3)/mc L [facility] Blood 03/06/2022 10:1 5 AM EDT 03/06/2022 10:21 AM EDT Narrative Resulting Agency Comment Spec In Lab Maryam MUELLER HEMATOLOGY ORDERABL ES Performing Organization Address City/[facility]/ZIP Co de Phone Number [facility] [place] [address] * (ABNORMAL) Hemogram (03/06/2022 10:15 AM EDT) White Blood Cell 6.4 4.0 - 9.5 x10(3)/mc L [facility] Red Blood Cell 3.07(L) 4.00 - 5.21 x10(6)/mc L [facility] Hemoglobin 10.5(L) 11.7 - 15.5 g/dL [facility] Hematocrit 31.1(L) 35.7 - 45.8 % [facility] Mean Cell Volume 101.3(H) 82.6 - 94.4 fL [facility] Mean Cell Hemoglobin 34.2(H) 27.1 - 32.0 pg [facility] Mean Cell Hemoglobin Concentration 33.8 31.7 - 35.0 g/dL [facility] Platelet 111(L) 145 - 357 x10(3)/[facility] RDW Standard Deviation 47.2(H) 37.0 - 46.0 [facility] RDW coefficient of variation 12.9 11.5 - 14.1 % [facility] Mean Platelet Volume 11.5 7.6 - 12.9 [facility] NRBC% auto 0.0 % [facility] NRBC Absolute 0.000 0.000 - 0.000 x10(3)/ L [facility] Blood 03/06/2022 10:1 5 AM EDT 03/06/2022 10:21 AM EDT Narrative Resulting Agency Comment Spec In Lab Maryam MUELLER HEMATOLOGY ORDERABL ES [facility] [place] [address] * Phosphorus (03/06/2022 10:15 AM EDT) Phosphorus 3.3 2.5 - 4.5 mg/dL [facility] Blood 03/06/2022 10:1 5 AM EDT 03/06/2022 10:21 AM EDT Narrative Resulting Agency Comment Spec In Lab Shania Will MD CHEMISTRY ORDERABLE S [facility] [place] [address] * Magnesium (03/06/2022 10:15 AM EDT) Magnesium 0.69 0.69 - 1.07 mmol/L [facility] Blood 03/06/2022 10:1 5 AM EDT 03/06/2022 10:21 AM EDT Narrative Resulting Agency Comment Spec In Lab Shania Will MD CHEMISTRY ORDERABLE S Performing Organization Address City/[facility]/ZIP Co de Phone Number [facility] [place] [address] * (ABNORMAL) Basic Metabolic Panel (non-fasting) (03/06/2022 10:15 AM EDT) Glucose 155 65 - 199 mg/dL [facility] Comment:Diabetes: >=200 mg/d L plus symptoms Blood Urea Nitrogen 29(H) 8 - 18 mg/dL [facility] Creatinine 1.25(H) 0.70 - 1.20 mg/dL [facility] Sodium 134(L) 135 - 145 mmol/L [facility] Potassium 4.8 3.5 - 5.0 mmol/L [facility] Comment: Please note: ??Patients with WBC >100,000 may have falsely elevated Potassium levels. ??For accurate Potassium quantification in these patients send serum separator tube (gold top) for subsequent determinations. ??Contact the Clinical Chemistry Laboratory if there are any questions. Chloride 101 98 - 107 mmol/L [facility] Carbon Dioxide 23 22 - 31 mmol/L [facility] Anion Gap 10 5 - 15 mmol/L [facility] Calcium 8.9 8.5 - 10.5 mg/dL [facility] Est Glomerular Filtration Rate 45(L) >=60 mL/min/1. 73 m?? [facility] Comment: This patient's estimated [...] MD CHEMISTRY ORDERABLE S Performing Organization Address City/State/[facility] Co de Phone Number [facility] [place] [address] * (ABNORMAL) Differential, Automated (03/06/2022 4:29 AM EDT) Neutrophil % 90.5 % [facility] Neutrophil Absolute 4.47 1.70 - 6.10 x10(3)/mc L [facility] Lymph % 6.9 % [facility] Lymphocytes Abs 0.3(L) 0.9 - 3.2 x10(3)/mc L [facility] Monocyte % 2.2 % [facility] Monocyte Abs 0.1(L) 0.3 - 0.9 x10(3)/mc L [facility] Eos % 0.0 % [facility] Eosinophils Abs 0.0 0.0 - 0.4 x10(3)/mc L [facility] Basophil % 0.2 % [facility] Baso Absolute 0.0 0.0 - 0.1 x10(3)/mc L [facility] Immature Gran % 0.20 % [facility] Comment: Immature granulocytes(IG's)percentage and absolute count will include metamyelocytes, myelocytes, and promyelocytes. Blood smears from CBCs yielding IG's will be scanned manually for concordance. If this scan disagrees with the automated IG or if promyelocytes are noted, a manual differential will be performed. Immature Gran Absolute 0.01 0.00 - 0.04 x10(3)/[facility] Blood 03/06/2022 4:29 AM EDT 03/06/2022 4:49 AM EDT Narrative Resulting Agency Comment Spec In Lab Prakash Mendez MD HEMATOLOGY ORDERABLE S [facility] [place] [address] * (ABNORMAL) Hemogram (03/06/2022 4:29 AM EDT) White Blood Cell 4.9 4.0 - 9.5 x10(3)/[facility] Red Blood Cell 3.08(L) 4.00 - 5.21 x10(6)/[facility] Hemoglobin 10.5(L) 11.7 - 15.5 g/dL [facility] Hematocrit 31.0(L) 35.7 - 45.8 % [facility] Mean Cell Volume 100.6(H) 82.6 - 94.4 fL [facility] Mean Cell Hemoglobin 34.1(H) 27.1 - 32.0 pg [facility] Mean Cell Hemoglobin Concentration 33.9 31.7 - 35.0 g/dL [facility] Platelet 104(L) 145 - 357 x10(3)/[facility] RDW Standard Deviation 47.5(H) 37.0 - 46.0 fL [facility] RDW coefficient of variation 12.9 11.5 - 14.1 % [facility] Mean Platelet Volume 11.8 7.6 - 12.9 fL [facility] NRBC% auto 0.0 % [facility] NRBC Absolute 0.000 0.000 - 0.000 x10(3)/mc L [facility] Blood 03/06/2022 4:29 AM EDT 03/06/2022 4:49 AM EDT Narrative Resulting Agency Comment Spec In Lab Prakash Mendez MD HEMATOLOGY ORDERABLE S [facility] [place] [address] * (ABNORMAL) Basic Metabolic Panel (non-fasting) (03/06/2022 4:29 AM EDT) Glucose 140 65 - 199 mg/dL [facility] Comment:Diabetes: >=200 mg/d L plus symptoms Blood Urea Nitrogen 31(H) 8 - 18 mg/dL [facility] Creatinine 1.32(H) 0.70 - 1.20 mg/dL [facility] Sodium 136 135 - 145 mmol/L [facility] Potassium 5.3(H) 3.5 - 5.0 mmol/L [facility] Comment: Please note: ??Patients with WBC >100,000 may have falsely elevated Potassium levels. ??For accurate Potassium quantification in these patients send serum separator tube (gold top) for subsequent determinations. ??Contact the Clinical Chemistry Laboratory if there are any questions. Chloride 103 98 - 107 mmol/L [facility] Carbon Dioxide 23 22 - 31 mmol/L [facility] Anion Gap 10 5 - 15 mmol/L [facility] Calcium 9.0 8.5 - 10.5 mg/dL [facility] Est Glomerular Filtration Rate 42(L) >=60 mL/min/1. 73 m?? [facility] Comment: This patient's estimated [...] MD CHEMISTRY ORDERABLE S Performing Organization Address City/[facility]/ZIP Co de Phone Number [facility] [place] [address] * POCT Glucose (03/05/2022 12:18 PM EDT) Glucose, POC 94 65 - 199 mg/dL [facility] Comment: Supplemental ranges: <140 mg/dL before meals <180 mg/dL all other times of the day Blood 03/05/2022 12:1 8 PM EDT 03/05/2022 12:18 PM EDT Shania Will MD POINT OF CARE TEST ORDERABLES Performing Organization Address City/[facility]/ZIP Co de Phone Number [facility] [place] [address] documented in this encounter Visit Diagnoses Not [...] Unit) documented in this encounter Care Teams Patient Attendant Relationship Specialty Start Date End Date Ana Her MD [address] [facility] [address] [place] [address] PCP - General 07/29/13 documented as of this encounter
--- OUTSIDE RECORDS SUMMARY | 2024-04-29 11:06 | XMS_ITS | Encounter Summary ---
[place] [address] Care Team Providers Care Licensed Loan Officer Assistant Name Role Phone Ana Her MD Primary Care Provider [phone] Encounter Details Date Type Department Care Team (Late st Contact Info) Description 01/08/2022 7:30 AM EDT - 01/08/2022 8:40 AM EDT Surgery [place] [phone] Laura Park MD [facility] [place] [address] EGD, UPPER GI ENDOSCOPY (WRVU 2.09) Social [...] a nurse in the Thoracic Clinic at [phone]. After hours or on weekends or holidays please call: [phone] and ask to speak to the Thoracic Physician aircraft avionics technician. Diet: You should follow a clear liquid [...] - 5pm): General Surgery and Bariatric Surgery [phone] Bariatric Surgeons: Drs. Park and John [phone] Luggage Maker: [phone] Dietitians: [phone] Outside of regular business hours, including weekends and holidays: Ask for General Surgery resident aircraft avionics technician [phone] Please note, this call will be answered [...] of left breast of female, estrogen receptor [id number], Z17.0 ??? Anemia D64.9 ??? Aortic valve [...] 6.43) performed by Malika Chen MD at [facility] MA[facility] OR ??? PRO INTRAOP SENTINEL LYMPH ID W/DYE INJECTION Left 03/30/2017 ?? INTRAOPERATIVE ID (MAPPING) SENTINEL LYMPH NODE,INCLUDES INJECTION (WRVU 2.5) performed by Malika Chen MD at [facility] OR ??? PRO MASTECTOMY PARTIAL Left 03/30/2017 ?? MASTECTOMY PARTIAL (WRVU 10.13) performed by Malika Chen MD at [facility] OR ?? Cholecystectomy ?? Medications: [...] Park MD - 01/08/2022 7:48 AM EDT [facility] Operative Note Patient Name: Digna Olson : [id number] MR#: [id number] Case Date: 01/08/2022 Surgeon: Surgeon(s) and Role: [...] Info Order Time SPECIMEN TO PATHOLOGY Gastric [place] for H Pylori Hiatal hernia Gastric [place] for H Pylori excision 01/08/2022 8:15 AM [...] 8:14 AM EDT Upper GI Endoscopy, Diagnostic (71502) Yes 01/08/2022 7:40 AM EDT Hiatal hernia POCT GLUCOSE Routine 01/08/2022 6:33 AM EDT documented in this encounter Results * Specimen to Pathology (01/08/2022 8:15 AM EDT) AP Specimen 01/08/2022 8:15 AM EDT 01/08/2022 8:15 AM EDT Narrative [facility] - 01/08/2022 8:15 AM EDT Specimen requisition ordered. ??Separate Pathology report to follow Laura Park MD PATHOLOGY/CYTOLOGY ORDERABLES [facility] [place] [address] * Surgical Pathology Report (01/08/2022 8:14 AM EDT) Final Diagnosis [id number] ? Location: SDP; SD36; A The signing pathologist has (i) examined the relevant preparation(s) for the specimen(s) and (ii) rendered or confirmed the diagnosis(es). . ?Surgical Pathology DIAGNOSIS A - Gastric ??Antrum for H Pylori, excision: - ??Antrum-type mucosa with reactive gastropathy. Electronically signed by: ?Umang Raymundo MD Verified: ??01/09/2022 16:36 ??Pathologist Performed at: ??-[facility] Dept. of Pathology, [place], [place] SPECIMEN(S) SUBMITTED A - Gastric ??Antrum for H Pylori, excision (1) CLINICAL INFORMATION Hiatal hernia SPECIMEN PROCESSING A - Labeled/Fixativ e: Gastric antrum for H. pylori, formalin. Quantity/Size: Single, 0.3 cm. Tissue Description: Soft, pink tissue. Sections/Proces sing: Submitted en toto ??in 1 cassette labeled A1. ??sns 01/09/2022 4:36 PM EDT [facility] GI Biopsy 01/08/2022 8:14 AM EDT 01/08/2022 8:14 AM EDT Laura Park MD PATHOLOGY/CYTOLOGY ORDERABLES Performing Organization Address City/State/[facility] Co de Phone Number [facility] [place] [address] * POCT Glucose (01/08/2022 6:33 AM EDT) Glucose, POC 120 65 - 199 mg/dL [facility] Comment: Supplemental ranges: <140 mg/dL before meals <180 mg/dL all other times of the day Blood 01/08/2022 6:33 AM EDT 01/08/2022 6:33 AM EDT Laura Park MD POINT [place] [address] documented in this encounter Visit Diagnoses Not on filedocumented in this encounter Active and Recently Administered Medications Care Teams Licensed Loan Officer Assistant Relationship Specialty Start Date End Date Ana Her MD [address] [facility] [address] [place] [address] PCP - General 07/29/13 documented as of this encounter
--- OUTSIDE RECORDS SUMMARY | 2024-04-29 11:06 | XMS_ITS | Clinical Summary ---
Author Organization [facility] [place] [address] Care Team Providers Care Surgical Services Director Name Role Phone Ana Her MD Primary Care Provider [phone] Allergies No known active allergies Medications Medication [...] the eliquis and has been managed by [facility]. She has remained in [place] over [...] and ECG with Dr. Ana Her in [place] in January She will discuss ECHO results [...] - TT3 and FT4 nl - My DIRECTOR OF RESIDENCE LIFE colleague called and spoke with covering MD [...] Due Date Last Done Comments Hepatitis C Screening 08[birth year]16/1963 Pneumoccocal Vaccine: 65+ (1 of 2 - PCV) 1964 Tetanus/Diphtheria/Pertussis Vaccines (1 - Tdap) 1964 Zoster vaccine (1 of 2) 08/16/1995 Advance Directive 2000 RSV Vaccine (1 - 1-dose 75+ series) 2020 Covid-19 Vaccine ( - 2023-2 5 season) 2024 Influenza (Flu) vaccine (1 o f 1 - Influenza standard series) 01/03/2024 Bone Density Scan 11/16/2035 11/15/2020, 11/09/2018 Breast Cancer screening Discontinued 06/11/19 22, 05/22/2020, 05/31/2019, Additional history exists Medical Devices Implanted Type Area Enterprise Application Analyst Device Identifier Shelf Expiration Date Model / Serial / Lot Breast Clip-02/26/20 17 Implanted: by Enzo Burkett MD (Quantity not on file) Breast Clip Left: Breast Bard - 0614 05/04/2019 [employer] ULTRACOR BREAST TISSUE MARKER ULTRASOUND ENHANCED BLANCA / / [id number] Description:BLANCA Procedures Procedure Name Priority Date/Time Associated [...] care home current 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 from Last [...] who have questions please contact the health personal carer that requested your imaging first. ? Electronically signed by: Digna Noel MD, [facility] ([phone]), at 06/11/2021 9:20 AM Jeanine Lobato CLINICAL REHAB SPECIALIST IMG MAMMO ORD ERABLES * DXA Central [...] BMD measurements and plots are available in [employer] under the imaging tab. Paper copies will be sent to providers without [employer] access. If you have received this report without the data sheet and do not have access to [employer], please contact Radiology Toll Line Inspector at [phone] Thursday thru Thursday 8am-4pm. Thank you for letting us participate in the care of this patient. ??If you are a health care provider and have any questions regarding this report, please contact the number below. ??For patients who have questions please contact the health personal carer that requested your imaging first. ? Electronically signed by: Nat Epperson MD, [facility] ([phone]), at 11/19/2020 1:09 PM Narrative 11/19/2020 1:09 [...] BMD measurements and plots are available in [employer] the imaging tab. Paper copies will be sent to providers without E- access.If you have received this report without the data sheet and do not haveaccess to E-, please contact Radiology Toll Line Inspector at [phone] Thursday thrriday 8am-4pm. Thank you for letting us participate in the care of this patient. If youare a health care provider and have any questions regarding this report,please contact the number below. For patients who have questions please contactthe health personal carer that requested your imaging first. Ricky Lowry [...] Status decision made by: Patient Care Teams Surgical Services Director Relationship Specialty Start Date End Date Ana Her MD [facility] [address] [place] [address] PCP - General 07/29/13
--- OUTSIDE RECORDS SUMMARY | 2024-04-29 11:06 | XMS_ITS | Continuity of Care Document ---
Author Organization [place] [facility] [place] [address] Care Team Providers Care Small Brake Form Operator Name Role Phone GABINODC Navigating Officer [facility] Orthopedic Surgeon [facility] Sleep Medicine [facility] Sewing Machine Repairer Helper Assessment No assessment recorded. Plan of Treatment Reminders Order Date Submit Date Provider Last Modified By Organization Details Last Modified Time Details Appointments Follow Up 20 2024 01:20P M Ana Wade Not available Not available Not available Lab BMP, serum or plasma 2023 024 [facility] (Registration ), [address] [place] [address] [place], [address], 04/19/2024 11:42:49 vitamin D, 25-hydrox y, total, serum 2023 024 [facility] (Registration ), [address] [place] [address] [place], [address], 04/18/2024 16:09:19 HbA1c (hemoglob in A1c), blood 2023 024 [facility] (Registration ), [address] [place] [address] [place], [address], 04/19/2024 11:39:49 TSH, serum, reflex free T4 2023 024 [facility] (Registration ), [address] [place] [address] Dr [facility] [place], [address], 04/19/2024 11:40:25 CBC 2023 024 [facility] (Registration ), [address] [place] [address] [place], [address], 04/18/2024 15:08:25 ferritin, serum or plasma 2023 024 [facility] (Registration ), [address] [place] [address] [place], [address], 04/19/2024 11:41:22 iron + total iron-bind ing capacity (TIBC), serum 2023 024 [facility] (Registration ), [address] [place] [address] [place], [address], 04/19/2024 11:43:17 Referral None recorded. Procedures None [...] humeral fracture 2023- MD [address], [place], [address] , [facility] 4 17:34:10 Hypothyr oidism 94022256 Active 1959 EVIE shaw [facility] 4 10:29:59 Essentia l hyperten jason 37391788 Active 1959 EVIE shaw [facility] 4 10:29:36 Hyperlip idemia 22506726 Active 1959 on statin MD [address], [place], [address] , [facility] 4 20:35:18 Spinal stenosis of lumbar region 11949869 Active 2012 s/p lumbar foramino parish L4 MD [address], [place], [address] , [facility] 4 20:36:41 Sleep apnea 25645277 Active 2012 on CPAP MD [address], [facility] [address] , [facility] 4 20:39:31 Gastroes ophageal reflux disease without esophagi tis 224213254 Completed 195908/12/2023 Removal Reason: resolved with surgical repair of HH MD [address], [place], [address] , [facility] 4 10:41:24 Family history of malignan t neoplasm of digestiv e organ 213857074 Active [address], [place], [address] , [facility] 4 20:37:03 Paresthe samir 35877609 Completed 201412/01/2014 11/28/19 15 - Comments only - Ana Wade MD - check B12 and folate Problem Code: R20.2; Problem Code Type: ICD-10; Not Available [facility] 3 05:53:48 Adult health examinat ion Active [address], [place], [address] , [facility] 4 20:33:34 Pre-surg ruben evaluati on [...] Z01.818; Problem Code Type: ICD-10; Not Available [facility] 3 05:53:48 Localize d edema 955827109 Completed 201501/29/2016 12/13/19 16 - Comments only - Ana Wade MD - and some on left as well, will check BMP. 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 Nusrat esparza for removal. Problem Code: L72.3; Problem Code Type: ICD-10; Not Available [facility] 3 05:53:49 Chronic ulcer of foot 439135227 Completed 201601/16/2017 12/18/19 17 - Comments only - Ana Wade MD - Due to injury. This does appear to have some granulat ion tissue and to be healing. She is given a prescrip tion for Keflex to take only if erythema seems to be extendin g. Problem Code: L97.509; Problem Code Type: ICD-10; Not Available [facility] 3 05:53:49 Diarrhea 85011088 Completed 201602/10/2017 02/05/20 17 - Comments only - Ana Wade MD - Persiste nt over several months, we will collect stool for C. 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 6 mm PT1NO E2P2 poistive , HER2 negative MD [address], [place], [address] , [facility] 4 20:38:49 Pain in left lower limb 225164170 Active 2016 EVIE shaw, [facility]. 4 10:32:00 Pain in thoracic spine 498737571 Active 2016 EVIE shaw [facility]. 4 10:32:06 Spasm 03752030 Active 2017 EVIE shaw [facility]. 4 10:33:28 Abdomina l distensi on, gaseous 813964636 Completed 201703/08/2018 Problem Code: R14.0; Problem Code Type: ICD-10; Not Available [facility] 3 05:53:50 Cellulit is of toe 43221642 Completed 201808/12/2018 Problem Code: L03.039; Problem Code Type: ICD-10; Not Available [facility] 3 05:53:51 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 2018 Danica shaw, [facility] 4 14:36:02 Tachycar lea 6058789 Completed 201811/25/2018 Problem Code: R00.0; Problem Code Type: ICD-10; Not Available [facility] 3 05:53:51 Pre-surg ruben evaluati on Completed 201811/25/2018 Problem Code: Z01.818; Problem Code Type: ICD-10; Not Available [facility] 3 05:53:51 Iron deficien cy anemia 17344436 Active 2019 elevated MCV: normal B12 2021, normal folate 2018 IV iron 2023 EGD 01/2022 paraesop hageal hernia (since repaired ) colo 03/2017 normal ANA WADE MD [facility] [address], [place], [address] , [facility] 4 11:44:45 Lumbago with sciatica 255845705 Completed 201903/16/2020 02/24/20 20 - Comments only - 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 - Likely aggravat ed by increase d [...] M54.40; Problem Code Type: ICD-10; Not Available [facility] 3 05:53:52 Right side sciatica 23550042261 9101 Active 2019 EVIE shaw, [facility] 4 10:33:09 Left side sciatica 54302573949 9104 Active [address], [facility] [address] , [facility] 4 17:20:20 Diaphrag matic hernia 52973676 Completed 202108/11/2023 Removal Reason: s/p repair MD [address], [facility] [address] , [facility] 4 20:50:39 History of SARS-CoV -2 54681598426 7209878 Completed 202104/04/2022 03/21/20 22 - Comments only - Ana Wade MD - testing is negative today in the office. Still some fatigue but otherwis e recoveri ng. Did get MAB. Already had covid bivalent booster prior to illness Problem Code: Z86.16; Problem Code Type: ICD-10; Not Available [facility] 3 05:53:53 Diarrhea 82265969 Completed 202104/18/2022 Problem Code: R19.7; Problem Code Type: ICD-10; MD [address], [facility] [address] , [facility] 4 21:03:02 Radhain myla mammogra phy Completed 202208/11/[address], [facility] [address] , [facility] 4 20:36:56 Carpal tunnel syndrome of left wrist 80350036498 9102 Completed 202201/23/2023 Problem Code: G56.02; Problem Code Type: ICD-10; Not Available [facility] 4 05:37:46 Diarrhea 92900033 Active 2022 started colestip ol 01/2023 NAA WADE MD [address], [place], [address] , [facility] 4 21:03:02 Carpal tunnel syndrome of right wrist 83020527244 9108 Completed 201803/19/2020 Problem Code: G56.01; Problem Code Type: ICD-10; Not Available [facility] 3 05:53:55 Pain of left knee joint 43452511294 4107 Completed 202107/30/2022 Problem Code: M25.562; Problem Code Type: ICD-10; Not Available [facility] 3 05:53:55 Hypersom korina 53617932 Completed 201311/27/2014 Problem Code: 780.54; Problem Code Type: ICD-9; Not Available [facility] 3 05:53:56 Screenin g for disorder Completed 201909/11/2021 Problem Code: Z13.9; Problem Code Type: ICD-10; Not Available [facility] 3 05:53:56 Anemia 617037015 Completed 201903/19/2020 Problem Code: D64.9; Problem Code Type: ICD-10; Not Available [facility] 3 05:53:56 Long-ter m current use of anticoag ulant 301162043 Completed 201709/01/2018 Problem Code: Z79.01; Problem Code Type: ICD-10; Not Available [facility] 3 05:53:57 Chronic rhinitis 30382799 Completed 202108/12/2021 Problem Code: J31.0; Problem Code Type: ICD-10; Not Available [facility] 3 05:53:57 Impaired fasting glycemia 659016909 Completed 201401/28/2023 Not Available [facility] 3 05:53:57 Fatigue 69646201 Completed 201903/19/2020 Problem Code: R53.83; Problem Code Type: ICD-10; Not Available [facility] 3 05:53:58 Upper respirat ory tract infectio n caused by Influenz a A 02001511257 9104 Completed 201707/02/2017 Problem Code: J09.x2; Problem Code Type: ICD-10; Not Available [facility] 3 05:53:59 Diarrhea 24093828 Completed 201709/01/2018 ANA WADE MD [facility] [address], [place], [address] [facility] 4 21:03:02 Acute upper respirat ory infectio n 96018052 Completed 202108/26/2021 Problem Code: J06.9; Problem Code Type: ICD-10; Not Available [facility] 3 05:53:59 Pain in right foot 75842258757 9107 Completed 202207/30/2022 Problem Code: M79.671; Problem Code Type: ICD-10; Not Available [facility] 3 05:54:00 Breast composit ion 678524646 Completed 201601/28/2023 Not Available [facility] 3 05:54:00 Changes in skin texture 538375555 Completed 202207/30/2022 Problem Code: R23.4; Problem Code Type: ICD-10; Not Available [facility] 3 05:54:01 Spasm 91252452 Completed 201603/23/2017 Problem Code: R25.2; Problem Code Type: ICD-10; EVIE shaw [facility] 4 10:33:28 Hyperten sive disorder 46470517 Completed 11/28/19 15 - Comments only - Ana Wade MD - [facility] ed, no change in medicati ons Not Available [facility] 3 05:54:03 Arthralg ia of the ankle and/or foot 441853533 Completed 201501/30/2016 Problem Code: M25.571; Problem Code Type: ICD-10; Not Available [facility] 3 05:54:03 Dyspnea 004867288 Completed 201903/19/2020 Problem Code: R06.02; Problem Code Type: ICD-10; Danica Felix [facility] 4 14:39:47 Trigger finger of right hand 84927829346 193383 Completed 201803/19/2020 Problem Code: M65.341; Problem Code Type: ICD-10; Not Available [facility] 3 05:54:06 Cough 39627447 Completed 202108/12/2021 Problem Code: R05.1; Problem Code Type: ICD-10; Not Available [facility] 3 05:54:06 At risk - finding 655035256 Completed 201811/11/2018 Problem Code: Z91.89; Problem Code Type: ICD-10; Not Available [facility] 3 05:54:06 Cough 93959724 Completed 201706/15/2017 Problem Code: R05; Problem Code Type: ICD-10; Not Available [facility] 3 05:54:07 Preopera tive cardiova scular examinat ion Completed 202112/18/2021 Problem Code: Z01.810; Problem Code Type: ICD-10; Not Available [facility] 3 05:54:08 Arterial bruit 18194405 Completed 202109/11/2021 Not Available [facility] 3 05:54:08 Gastroes ophageal reflux disease 608338737 Completed Not Available [facility] 3 05:54:09 Imaging of musculos keletal system abnormal 723114772 Completed 201603/23/2017 Problem Code: R93.7; Problem Code Type: ICD-10; Not Available [facility] 3 05:54:10 Blood glucose outside referenc e range 008117969 Completed 201503/20/2016 Problem Code: R73.09; Problem Code Type: ICD-10; Not Available [facility] 3 05:54:10 Abdomina l aortic aneurysm 959013325 Completed 195912/04/2014 Not Available [facility] 3 05:54:11 Lung field abnormal 671541877 Completed 202109/11/2021 Problem Code: R91.8; Problem Code Type: ICD-10; Not Available [facility] 3 05:54:11 Ingrowin g nail 760914215 Completed 201503/23/2017 Problem Code: L60.0; Problem Code Type: ICD-10; Not Available [facility] 3 05:54:11 Hypokale karyn 42319431 Completed 201504/17/2016 Problem Code: E87.6; Problem Code Type: ICD-10; Not Available [facility] 3 05:54:12 Spasm 05537995 Completed 202201/23/2023 Problem Code: M62.838; Problem Code Type: ICD-10; EVIE shaw, [facility]. 4 10:33:28 Aneurysm of ascendin g aorta 782508322 Active 2023 ANA WADE MD [address], [place], [address] , [facility]. 4 19:24:51 Bicuspid aortic valve 49211403 Active 2023 severe by ECHO 07/2023 ANA WADE MD [address], [place], [address] , [facility]. 4 19:33:10 Osteopen ia 449772232 Active 2023 EVIE shaw, [facility]. 4 10:28:13 Venous stasis 25660420 Active 2023 EVIE shaw [facility]. 4 10:29:14 Chronic kidney disease 432511513 Active 2017 Stage 3bA1v eGFR 42-[address], [place] [address] , [facility] 4 20:49:29 Dyspnea on exertion 24453013 Active 2018 Danica shaw, [facility] 4 14:39:44 Hiatal hernia 07996037 Completed 202108/11/2023 lap repair MD [address], [place] [address] , [facility] 4 20:51:15 Edema of lower extremit y 837178715 Active [address], [place] [address] , [facility] 4 20:55:49 Atrial fibrilla tion 78937752 Active 2016 s/p pulmonoa ry vein isolatio n 05/2018, chronic anticoag ulation with Xarelto MD [address], [place] [address] , [facility] 4 09:14:08 Obesity 939345896 Active [address], [place] [address] , [facility] 4 09:26:22 Cardiac pacemake r in situ 501802736 Active 2023 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 MD [address], [place] [address] , [facility] 4 09:13:49 Swelling of bilatera l lower limbs 887084919 Active [address], [place], [address] , [facility] 14:35:13 Problem Notes None recorded. Procedures Surgical History Date Name Laterality Status Provider Name and Address Organization Details Recorded Time 10/26/19 cardiac pacemaker procedure completed MD [address], [place], [address], [facility] 03/16/2024 16:33:27 10/20/19 transcatheter aortic valve implantation completed MD [address], [facility] [address], [facility] 03/16/2024 16:32:53 Imaging Results None recorded. Procedure Notes None recorded. Medical Equipment None Reported. Allergies Allergen ID Allergen Name Allergen Category Reaction Reaction Severity Criticality Documentation Date Start Date Code Code System Note Provider Name and Address Organization Details Recorded Time 61427 amlodipin e medicatio n swelling severe high 11/18/2023 07357 RxNorm Shaneka Herrera MA [facility], [facility] 13:47:28 Medications Name Sig Start Date Stop [...] tab by mouth daily 06/02 completed [employer] [facility] Not Available Not Available Not [...] Status Never Smoker KRYSTAL SKELTON LPN null, [place] - [facility]. 08/12/2023 07:44:55 Date Of Most Recent HSA [...] And Wanted Help? (For Example, If You [place] Very Nervous, Lonely, Or Blue; Got Sick [...] Details Recorded Time Pneumococcal conjugate PCV20, polysaccharide CQT224 conjugate, adjuvant, PF 4 completed MD [address], [address] 08/12/2023 11:52:18 COVID-19, mRNA, LNP-S, PF, vanda-sucrose, 30 mcg/0.3 mL 4 completed MD [address], [address] 08/12/2023 11:52:18 COVID-19, mRNA, LNP-S, PF, vanda-sucrose, 30 mcg/0.3 mL 4 completed MD [address], [address] [place] [address] 03/04/2024 15:04:49 Tdap 1 completed Not Available [facility] 03/13/2023 06:18:37 Tdap 1 completed Not Available [facility] 03/13/2023 06:18:37 zoster live 5 completed Not Available [facility] 03/13/2023 06:18:37 Influenza, high-dose, trivalent, PF 8 completed Not Available [facility] 03/13/2023 06:18:38 Influenza, split virus, trivalent, preservative 6 completed Not Available [facility] 03/13/2023 06:18:38 Pneumococcal Conjugate, unspecified formulation 5 completed Not Available [facility] 03/13/2023 06:18:38 Influenza, split virus, quadrivalent, preservative 7 completed Not Available [facility] 03/13/2023 06:18:38 Influenza, high-dose, quadrivalent, PF 2 completed Not Available [facility] 03/13/2023 06:18:38 Influenza, high-dose, quadrivalent, PF 1 completed Not Available [facility] 03/13/2023 06:18:38 Influenza, high-dose, quadrivalent, PF 0 completed Not Available [facility] 03/13/2023 06:18:38 COVID-19, mRNA, LNP-S, PF, 100 mcg/0.5mL dose or 50 mcg/0.25mL dose 1 completed Not Available [facility] 03/13/2023 06:18:38 COVID-19, mRNA, LNP-S, PF, 100 mcg/0.5mL dose or 50 mcg/0.25mL dose 1 completed Not Available [facility] 03/13/2023 06:18:39 COVID-19, mRNA, LNP-S, PF, 100 mcg/0.5mL dose or 50 mcg/0.25mL dose 1 completed Not Available [facility] 03/13/2023 06:18:39 COVID-19, mRNA, LNP-S, bivalent, PF, 30 mcg/0.3 mL dose 2 completed Not Available [facility] 03/13/2023 06:18:39 pneumococcal polysaccharide PPV23 1 completed Not Available [facility] 03/13/2023 06:18:39 influenza, unspecified formulation 6 completed Not Available [facility] 03/13/2023 06:18:39 influenza, unspecified formulation 4 completed Not Available [facility] 03/13/2023 06:18:39 Influenza, high-dose, quadrivalent, PF 3 completed Not Available [facility] 05/15/2023 05:33:16 Past Encounters Encounter ID Performer Location Encounter Start Date Encounter Closed Date Diagnosis/Indication Diagnosis SNOMED-CT Code Diagnosis ICD10 Code [id number] Samantha Razo RN [address] [place] [address] 04/18/2024 10:14:04 04/18/2024 10:46:21 Osteoporotic fracture 61658963 M80.00XD Hypothyroidism 71452000 E03.9 Iron defic iency anemia 97751316 D50.9 Chronic ki dney disease 000146785 N18.9 Prediabetes 124788265 R7 3.03 Health Concerns Section Related Observation LastModified by Organization Detai ls LastModified Time None Recorded Concern Status LastModified by Organization Details LastModified Time None Recorded Payers Encounter Date Sequence Insurance Name Policy Number Policy Palacio Covered Member ID Palacio Member ID Guarantor Name 04/18/2024 1 [place] [employer] Digna Olson [id number] Digna Olson 04/18/2024 2 [place] [facility] [id number] Digna Olson [id number] Digna Olson OBGyn Episode No OBEpisode recorded.
--- OUTSIDE RECORDS SUMMARY | 2024-04-29 11:06 | XMS_ITS | Encounter Summary ---
Author Organization [facility] [place] [address] Care Team Providers Care Sugarcane Research Technician Name Role Phone Ana Her MD Primary Care Provider [phone] Encounter Details Date Type Department Care Team (Latest Contact Info) Description 04/03/2022 12:00 PM EST TH Visit (TeleHealth) [place] [address] Laura Will MD [facility] [place] [address] Status post repair of paraesophageal diaphragmatic hernia [...] status documented in this encounter Care Teams Sugarcane Research Technician Relationship Specialty Start Date End Date Ana Her MD [facility] [address] [place] [address] PCP - General 07/29/13 documented as of this encounter
--- OUTSIDE RECORDS SUMMARY | 2024-04-29 11:06 | XMS_ITS | Encounter Summary ---
[place] [address] Care Team Providers Care Cake Inspector Name Role Phone Ana Her MD Primary Care Provider [phone] Encounter Details Date Type Department Care Team (Late st Contact Info) Description 02/26/2022 Orders Only [place] [address] Alicia Manning RN Social History Tobacco Use [...] on filedocumented in this encounter Care Teams Cake Inspector Relationship Specialty Start Date End Date Ana Her MD [address] [place] [address] PCP - General 07/29/13 documented as of this encounter
--- OUTSIDE RECORDS SUMMARY | 2024-04-29 11:06 | XMS_ITS | Encounter Summary ---
[place] [address] Care Team Providers Care Sticker Hand Name Role Phone Ana Her MD Primary Care Provider [phone] Encounter Details Date Type Department Care Team (Late st Contact Info) Description 10/23/2022 Telephone Mammography/[place] [address] Aby [place]o Social History Tobacco Use Types [...] on filedocumented in this encounter Care Teams Sticker Hand Relationship Specialty Start Date End Date nAa Her MD [address] [place] [address] PCP - General 07/29/13 documented as of this encounter
--- OUTSIDE RECORDS SUMMARY | 2024-04-29 11:06 | XMS_ITS | Encounter Summary ---
Author Organization [facility] [place] [address] Care Team Providers Care Salesperson Hosiery Name Role Phone Ana Her MD Primary Care Provider [phone] Encounter Details Date Type Department Care Team (Latest Contact Info) Description 01/23/2022 12:15 PM EDT TH Visit (TeleHealth) [place] [address] Laura Will MD [facility] [place] [address] Paraesophageal hernia Social History Tobacco Use Types [...] her. She is followed by cardiology at [facility], and is on xarelto. Impression: Symptomatic paraesophageal [...] gangrene documented in this encounter Care Teams Salesperson Hosiery Relationship Specialty Start Date End Date Ana Her MD [address] [facility] [place] [address] [place] [address] PCP - General 07/29/13 documented as of this encounter
--- OUTSIDE RECORDS SUMMARY | 2024-04-29 11:06 | XMS_ITS | Encounter Summary ---
[place] [address] Care Team Providers Care National Sales Executive Name Role Phone Ana Her MD Primary Care Provider [phone] Encounter Details Date Type Department Care Team (Late st Contact Info) Description 02/04/2022 12:00 PM EDT [place] [address] Social History Tobacco Use Types Packs/Day Years [...] on filedocumented in this encounter Care Teams National Sales Executive Relationship Specialty Start Date End Date Ana Her MD [address] [place] [address] PCP - General 07/29/13 documented as of this encounter
--- OUTSIDE RECORDS SUMMARY | 2024-04-29 11:06 | XMS_ITS | Encounter Summary ---
[place] [address] Care Team Providers Care Cash Sales Audit Clerk Name Role Phone Ana Her MD Primary Care Provider [phone] Reason for Visit * Auth/Cert Specialty Diagnoses / Procedures Referred By Christiano hackett Referred To Contact Diagnoses S/P repair of paraesophageal hernia Post-Op monitoring Procedures PRO LAPARSCOPY REPAIR PARAESOPHAGEAL HERNIA INCL FUNDOPLASTY W/O MESH LAPAROSCOPIC PARAESOPHAGEAL HERNIA REPAIR W/FUNDOPLASTY, W/O MESH (WRVU 26.6) MODIFIER TOUPET FUNDOPLASTY Laura Will MD [facility] [place] [address] [facility] Referral ID Status Reason Start Date Expiration Date Visits Re quested Visits Authorized [id number] 1 1 Encounter Details Date Type Department Care Team (Late st Contact Info) Description 03/05/2022 1:58 PM EDT Anesthesia Event [place] [phone] Alisa Naqvi MD [facility] DR [place] [address] Alessia Ramirez APR[place] [address] Anesthesia Record Procedure Summary Procedure Name Responsible [...] Procedure Summary Date: 03/05/22 Room / Location: [address] MAIN OR Anesthesia Start: 8 Anesthesia Stop: 1823 Procedures: LAPAROSCOPIC PARAESOPHAGEAL HERNIA REPAIR W/FUNDOPLASTY, W/O MESH (WRVU 26.6) (N/A Abdomen) MODIFIER TOUPET FUNDOPLASTY (N/A Abdomen) Diagnosis: (Paraesophageal Hernia) Surgeons: Laura Will MD Responsible Provider: Alisa Naqvi MD Anesthesia Type: general ASA Status: 3 All Anesthesia Providers: Anesthesiologist: Brayan Hubbard MD; Alisa Naqvi MD; Dario Franco MD Molding Cutter: Mo Vance DO Vitals Value Taken Time BP 125/75 03/05/22 1821 Temp Pulse 77 03/05/22 1823 Resp 18 03/05/22 1823 SpO2 100 % 03/05/22 182 Pain Level Vitals shown include unvalidated device data. Patient Location: PACU/[facility] Level of Consciousness: Awake and Alert [...] 6.43) performed by Malika Chen MD at [facility] MAIN OR ??? PRO INTRAOP SENTINEL LYMPH ID W/DYE INJECTION Left 03/30/2017 INTRAOPERATIVE ID (MAPPING) SENTINEL LYMPH NODE,INCLUDES INJECTION (WRVU 2.5) performed by Malika Chen MD at [facility] MAIN OR ??? PRO MASTECTOMY PARTIAL Left 03/30/2017 MASTECTOMY PARTIAL (WRVU 10.13) performed by Malika Chen MD at [facility] MAIN OR ??? PRO UPPER GI ENDOSCOPY, DIAGNOSTIC N/A 01/08/2022 EGD, UPPER GI ENDOSCOPY performed by Laura Will MD at [facility] MAIN OR Social History Tobacco [...] sneeze Cardiac Hx: Exercise stress test 10/07/21 [facility]: Resting electrocardiogram showed atrial fibrillation, right BBB, left anterior fascicular block. Patient achieved 4.64METS, achieved 93% of predicted HR for age. Electrocardiographic portion of test negative for ischemia. MPI negative for ischemia or infarction. EF 45%. Wall motion normal. ?? Echo 06/19/21 ([facility]): normal biventricular size and function, [...] PONV ppx Mo Shreyas DO Pinky 03/04/2022 Outer Diameter Grinder Pager #[phone] Region - Other Informed Consent: Anesthetic plan [...] GERD (omeprazole) ?? Exercise stress test 10/07/21 [facility]: Resting electrocardiogram showed atrial fibrillation, right BBB, left anterior fascicular block. Patient achieved 4.64METS, achieved 93% of predicted HR for age. Electrocardiographic portion of test negative for ischemia. MPI negative for ischemia or infarction. EF 45%. Wall motion normal. ?? Echo 06/19/21 ([facility]): normal biventricular size and function, [...] 1 view ?? Followed by cardiology at [facility], notes under Care Everywhere. Last seen 06/19/21 [...] mg documented in this encounter Care Teams Cash Sales Audit Clerk Relationship Specialty Start Date End Date Ana Her MD [address] [facility] [address] [place] [address] PCP - General 07/29/13 documented as of this encounter
--- OUTSIDE RECORDS SUMMARY | 2024-04-29 11:06 | XMS_ITS | Encounter Summary ---
[place] [address] Care Team Providers Care Desk Maker Name Role Phone Ana Her MD Primary Care Provider [phone] Encounter Details Date Type Department Care Team (Late st Contact Info) Description 02/03/2023 Telephone Hematology [place] [phone] Maryam Barrett Social History Tobacco Use Types [...] on filedocumented in this encounter Care Teams Desk Maker Relationship Specialty Start Date End Date Ana Her MD [address] [place] [address] PCP - General 07/29/13 documented as of this encounter
--- OUTSIDE RECORDS SUMMARY | 2024-04-29 11:06 | XMS_ITS | Encounter Summary ---
Author Organization [facility] [place] [address] Care Team Providers Care Spray Gun Operator Name Role Phone Ana Her MD Primary Care Provider [phone] Encounter Details Date Type Department Care Team (Late st Contact Info) Description 03/09/2022 11:00 PM EST Ancillary Procedure Radiology Library at [facility] [place] [address] Ana Her MD [address] [place] [address] [facility] 1 [place], [place] [id number] Social History Tobacco Use Types Packs/Day Years [...] CT Chest (03/09/2022 10:56 PM EST) Narrative [facility] - 03/09/2022 10:56 PM EST This exam is auto-finalizing. It's purpose is for storage only. Ana Her MD IM FILM LIBRARY ORD ERABLES [place], [place] documented in this encounter Visit Diagnoses Not on filedocumented in this encounter Care Teams Spray Gun Operator Relationship Specialty Start Date End Date Ana Her MD [address] [facility] 1 [place] [address] PCP - General 07/29/13 documented as of this encounter
--- OUTSIDE RECORDS SUMMARY | 2024-04-29 11:06 | XMS_ITS | Encounter Summary ---
[place] [address] Care Team Providers Care Guest Service Supervisor Name Role Phone Ana Her MD Primary Care Provider [phone] Reason for Visit * Auth/Cert Specialty Diagnoses / Procedures Referred By Christiano hackett Referred To Contact Diagnoses S/P repair of paraesophageal hernia Post-Op monitoring Procedures PRO LAPARSCOPY REPAIR PARAESOPHAGEAL HERNIA INCL FUNDOPLASTY W/O MESH LAPAROSCOPIC PARAESOPHAGEAL HERNIA REPAIR W/FUNDOPLASTY, W/O MESH (WRVU 26.6) MODIFIER TOUPET FUNDOPLASTY Shania Will MD [facility] [place] [address] [place] Referral ID Status Reason Start Date Expiration Date Visits Re quested Visits Authorized [id number] 1 1 Encounter Details Date Type Department Care Team (Latest Contact Info) Description 03/05/2022 11:55 AM EDT - 03/07/2022 10:00 AM EDT Hospital Encounter [place] [phone] Shania Will MD [facility] [place] [address] Discharge Disposition: Home Social History Tobacco Use [...] of left breast of female, estrogen receptor ndbutjccG05.512, Z17.0 ??? Anemia D64.9 ??? Aortic valve [...] Per chart review, her creatinine levels in [id number] ranged from 0.87-1.50 indicative of possible undiagnosed [...] PM Shania Will MD General Surgery at [facility] Arrive at: Manager Electrical Area [phone] Instructions Given to Patient at Discharge: Patient [...] hours please call the Surgery Clinic at [phone] before 5 PM on weekdays. For questions after hours and on weekends please call the hospital deoiling machine operator at [phone] and ask for the General Surgery resident seasoning sprayer. They may not be familiar with your [...] post Sly diet, as instructed by the credit risk modeler in the hospital for a period of [...] renal function. Please call the clinic at [phone] to confirm or reschedule. Future Appointments Date Time Provider Department Center 04/03/2022 12:00 PM Shania Will MD [facility] SURG [facility] General Instructions None Future Appointments and Orders Future Appointments and Orders Future Appointments Provider Department Dept Phone 04/03/2022 12:00 PM Shania Will MD General Surgery at [facility] Arrive at: Manager Electrical Area Signed: Shena Harden MD 03/07/22 7:18 AM [facility] [place] 2026 Primary [place] Physician: MD Geovany [address] [facility] [address] documented in this encounter Discharge Instructions * [...] hours please call the Surgery Clinic at [phone] before 5 PM on weekdays. For questions after hours and on weekends please call the hospital deoiling machine operator at [phone] and ask for the General Surgery resident seasoning sprayer. They may not be familiar with your [...] post Sly diet, as instructed by the credit risk modeler in the hospital for a period of [...] renal function. Please call the clinic at [phone] to confirm or reschedule. Future Appointments Date Time Provider Department Center 04/03/2022 12:00 PM Shania Will MD [facility] SURG [facility] documented in this encounter Medications at Time [...] Ocampo RN - 03/07/2022 10:25 AM EDT [facility] Short Stay Unit Discharge Note All [...] Sly Diet Education to pt Digna Olson. Skin Care Instructor metwith pt at bedside to deliver full [...] she is noticing some overall improvement post op.Skin Care Instructor took note of this and encouraged the [...] Department contact information provided. Pt appreciate of data analyst report writer's time. Nutrition to follow as [...] course unless consulted in the interim. YULIANA aDrden * Mehdi Perez MD - 03/05/2022 8:53 [...] Perez MD 03/05/2022 Minimally Invasive Surgery Pager #[phone] * Lorrie Slater RN - 03/05/2022 6:46 [...] ?? She is followed by cardiology at [facility], and is on xarelto. ?? Impression: ??Symptomatic [...] of left breast of female, estrogen receptor rtbxovnsI11.512, Z17.0 ??? Anemia D64.9 ??? Aortic valve [...] 6.43) performed by Malika Chen MD at [facility] MAIN OR ??? PRO INTRAOP SENTINEL LYMPH ID W/DYE INJECTION Left 03/30/2017 ?? INTRAOPERATIVE ID (MAPPING) SENTINEL LYMPH NODE,INCLUDES INJECTION (WRVU 2.5) performed by Malika Chen MD at [facility] MAIN OR ??? PRO MASTECTOMY PARTIAL Left 03/30/2017 ?? MASTECTOMY PARTIAL (WRVU 10.13) performed by Malika Chen MD at [facility] MAIN OR ?? Cholecystectomy ?? Medications: [...] Operative Note Patient Name: Digna Olson : [id number] MR#: [id number] Case Date: 03/05/2022 Surgeon: Surgeon(s) and Role: [...] Flores MD - 03/05/2022 2:32 PM EDT [facility] Operative Note Patient Name: Digna Olson : [id number] MR#: [id number] Case Date: 03/05/2022 Surgeon: Surgeon(s) and Role: [...] Repair Paraesophageal Hernia Incl Fundoplasty W/O Mesh (11639) 03/05/2022 1:58 PM EDT Paraesophageal Hernia POCT GLUCOSE Routine 03/05/2022 12:18 PM EDT LAPAROSCOPIC PARAESOPHAGEAL HERNIA REPAIR W FUNDOPLASTY, W/O MESH Routine 03/05/2022 12:02 PM EDT documented in this encounter Results * (ABNORMAL) Differential, Automated (03/07/2022 5:08 AM EDT) Neutrophil % 80.0 % [facility] Neutrophil Absolute 5.30 1.70 - 6.10 x10(3)/mc L [facility] Lymph % 12.1 % [facility] Lymphocytes Abs 0.8(L) 0.9 - 3.2 x10(3)/mc L [facility] Monocyte % 7.6 % [facility] Monocyte Abs 0.5 0.3 - 0.9 x10(3)/mc L [facility] Eos % 0.0 % [facility] Eosinophils Abs 0.0 0.0 - 0.4 x10(3)/mc L [facility] Basophil % 0.0 % [facility] Baso Absolute 0.0 0.0 - 0.1 x10(3)/[facility]OR[facility] Immature Gran % 0.30 % [facility] Comment: Immature granulocytes(IG's)percentage and absolute count will include metamyelocytes, myelocytes, and promyelocytes. Blood smears from CBCs yielding IG's will be scanned manually for concordance. If this scan disagrees with the automated IG or if promyelocytes are noted, a manual differential will be performed. Immature Gran Absolute 0.02 0.00 - 0.04 x10(3)/[facility]OR[facility] Blood 03/07/2022 5:08 AM EDT 03/07/2022 5:19 AM EDT Narrative Resulting Agency Comment Spec In Lab Nino Levy MD HEMATOLOGY ORDERABLE S Performing Organization Address City/State/[facility] Co de Phone Number [facility] [place] [address] * (ABNORMAL) Hemogram (03/07/2022 5:08 AM EDT) White Blood Cell 6.6 4.0 - 9.5 x10(3)/[facility] Red Blood Cell 3.16(L) 4.00 - 5.21 x10(6)/[facility] Hemoglobin 10.7(L) 11.7 - 15.5 [...] HOSPITAL LABORATORY Platelet 110(L) 145 - 357 x10(3)/[facility] RDW Standard Deviation 47.5(H) 37.0 - 46.0 fL [facility] RDW coefficient of variation 12.9 11.5 - 14.1 % [facility] Mean Platelet Volume 11.7 7.6 - 12.9 fL [facility] NRBC% auto 0.0 % [facility] NRBC Absolute 0.000 0.000 - 0.000 x10(3)/mc L [facility] Blood 03/07/2022 5:08 AM EDT 03/07/2022 5:19 AM EDT Narrative Resulting Agency Comment Spec In Lab Nino Levy MD HEMATOLOGY ORDERABLE S [facility] [place] [address] * Phosphorus (03/07/2022 5:08 AM EDT) Phosphorus 2.7 2.5 - 4.5 mg/dL [facility] Blood 03/07/2022 5:08 AM EDT 03/07/2022 5:19 AM EDT Narrative Resulting Agency Comment Spec In Lab Shania Will MD CHEMISTRY ORDERABLE S Performing Organization Address City/[facility]/ZIP Co de Phone Number [facility] [place] [address] * Magnesium (03/07/2022 5:08 AM EDT) Magnesium 0.89 0.69 - 1.07 mmol/L [facility] Blood 03/07/2022 5:08 AM EDT 03/07/2022 5:19 AM EDT Narrative Resulting Agency Comment Spec In Lab Shania Will MD CHEMISTRY ORDERABLE S [facility] [place] [address] * (ABNORMAL) Basic Metabolic Panel (non-fasting) (03/07/2022 [...] Lab Shania Will [place] [address] * (ABNORMAL) Differential, Automated (03/06/2022 10:15 AM EDT) Pathologist [facility] Neutrophil % 90.7 % [facility] Neutrophil Absolute 5.79 1.70 - 6.10 x10(3)/ L [facility] Lymph % 5.0 % [facility] Lymphocytes Abs 0.3(L) 0.9 - 3.2 x10(3)/ L [facility] Monocyte % 3.8 % [facility] Monocyte Abs 0.2(L) 0.3 - 0.9 x10(3)/[facility] Eos % 0.0 % [facility] Eosinophils Abs 0.0 0.0 - 0.4 x10(3)/[facility] Basophil % 0.0 % [facility] Baso Absolute 0.0 0.0 - [...] In Lab Maryam MUELL[place] [address] * (ABNORMAL) Hemogram (03/06/2022 10:15 AM EDT) [...] [facility] NRBC% auto 0.0 % [facility] NRBC Absolute 0.000 0.000 - 0.000 x10(3)/mc L [facility] Blood 03/06/2022 10:1 5 AM EDT 03/06/2022 10:21 AM EDT Narrative Resulting Agency Comment Spec In Lab Maryam MUELLER HEMATOLOGY ORDERABL ES [facility] [place] [address] * Phosphorus (03/06/2022 10:15 AM EDT) Phosphorus 3.3 2.5 - 4.5 mg/dL [facility] Blood 03/06/2022 10:1 5 AM EDT 03/06/2022 10:21 AM EDT Narrative Resulting Agency Comment Spec In Lab Shania Will MD CHEMISTRY ORDERABLE S Performing Organization Address City/[facility]/ZIP Co de Phone Number [facility] [place] [address] * Magnesium (03/06/2022 10:15 AM EDT) Magnesium 0.69 0.69 - 1.07 mmol/L [facility] Blood 03/06/2022 10:1 5 AM EDT 03/06/2022 10:21 AM EDT Narrative Resulting Agency Comment Spec In Lab Shania Will MD CHEMISTRY ORDERABLE S Performing Organization Address [facility] Co de Phone Number [facility] [place] [address] * (ABNORMAL) Basic Metabolic Panel (non-fasting) (03/06/2022 10:15 AM EDT) Pathologist [facility] Glucose 155 65 - 199 mg/dL HOLD[facility] [...] MD CHEMISTRY ORDERABLE S Performing Organization Address City/State/[facility] Co de Phone Number [facility] [place] [address] * (ABNORMAL) Differential, Automated (03/06/2022 4:29 AM EDT) Neutrophil % 90.5 % [facility] Neutrophil Absolute 4.47 1.70 - 6.10 x10(3)/mc L [facility] Lymph % 6.9 % [facility] Lymphocytes Abs 0.3(L) 0.9 - 3.2 x10(3)/mc L [facility] Monocyte % 2.2 % [facility] Monocyte Abs 0.1(L) 0.3 - 0.9 x10(3)/mc L [facility] Eos % 0.0 % [facility] Eosinophils Abs 0.0 0.0 - 0.4 x10(3)/mc L [facility] Basophil % 0.2 % [facility] Baso Absolute 0.0 0.0 - [...] HEMATOLOGY ORDERABLE S [facility] [place] [address] * (ABNORMAL) Hemogram (03/06/2022 4:29 AM EDT) [...] [facility] NRBC% auto 0.0 % [facility] NRBC Absolute 0.000 0.000 - 0.000 x10(3)/mc L [facility] Blood 03/06/2022 4:29 AM EDT 03/06/2022 4:49 AM EDT Narrative Resulting Agency Comment Spec In Lab Prakash Mendez MD HEMATOLOGY ORDERABLE S [facility] [place] [address] * (ABNORMAL) Basic Metabolic Panel (non-fasting) (03/06/2022 [...] CHEMISTRY ORDERABLE S [facility] [place] [address] * POCT Glucose (03/05/2022 12:18 PM EDT) Glucose, POC 94 65 - 199 mg/dL [facility] Comment: Supplemental ranges: <140 mg/dL before meals <180 mg/dL all other times of the day Blood 03/05/2022 12:1 8 PM EDT 03/05/2022 12:18 PM EDT Shania Will MD POINT OF CARE TEST ORDERABLES Performing Organization Address City/[facility]/ZIP Co de Phone Number [facility] [place] [address] documented in this encounter Visit Diagnoses Diagnosis [...] bolus (COMPLETED) Intravenous, ONCE, 1 dose, On Radah 03/06/22 at 0500 0410 (New Bag - [...] Unit) documented in this encounter Care Teams Guest Service Supervisor Relationship Specialty Start Date End Date Ana Her MD [address] [place] [address] PCP - General 07/29/13 documented as of this encounter
--- OUTSIDE RECORDS SUMMARY | 2024-04-29 11:06 | XMS_ITS | Encounter Summary ---
Author Organization [facility] [place] [address] Care Team Providers Care Senior Asset Manager Name Role Phone Ana Her MD Primary Care Provider [phone] Encounter Details Date Type Department Care Team (Late st Contact Info) Description 01/08/2022 7:42 AM EDT Anesthesia Event [place] [address] Alisa Naqvi MD [facility] [place] [address] Anesthesia Record Procedure Summary Procedure Name Responsible [...] cephalic vein (lateral side of arm), left; [id number]-[id number] catheter system; Anatomical Landmarks; 20 gauge; Joslyn [...] Procedure Summary Date: 01/08/22 Room / Location: [facility] OR [address] [place] [address] MAIN OR Anesthesia Start: 741 Anesthesia Stop: 825 Procedure: EGD, UPPER GI ENDOSCOPY (N/A Trunk) Diagnosis: (Hiatal hernia) Surgeons: Laura Will MD Responsible Provider: Alisa Naqvi MD Anesthesia Type: general ASA Status: 3 All Anesthesia Providers: Anesthesiologist: Alisa Naqvi MD Ward Service Supervisor: Nghia Valerio MD Vitals Value Taken Time BP 98/56 01/08/22 0823 Temp Pulse Resp SpO2 99 % 01/08/22826 Pain Level Vitals shown include unvalidated device data. Patient Location: PACU/[facility] Level of Consciousness: Conscious but Sleepy [...] 6.43) performed by Malika Chen MD at [facility] MAIN OR ??? PRO INTRAOP SENTINEL LYMPH ID W/DYE INJECTION Left 03/30/2017 INTRAOPERATIVE ID (MAPPING) SENTINEL LYMPH NODE,INCLUDES INJECTION (WRVU 2.5) performed by Malika Chen MD at [facility] MAIN OR ??? PRO MASTECTOMY PARTIAL Left 03/30/2017 MASTECTOMY PARTIAL (WRVU 10.13) performed by Malika Chen MD at [facility] MAIN OR Social History Tobacco [...] documented in this encounter Care Teams Senior Asset Manager Relationship Specialty Start Date End Date Ana Her MD [facility] [address] [facility] [address] [place] [address] PCP - General 07/29/13 documented as of this encounter
--- OUTSIDE RECORDS SUMMARY | 2024-04-29 11:06 | XMS_ITS | Continuity of Care Document ---
Author Organization [facility], [facility] [place] [address] Care Team Providers Care Learning Designer Name Role Phone GABINODC Switchboard Manager [facility] Orthopedic Surgeon [phone] [facility] FOR SLEEP DISORDERS Sleep Medicine [facility] Barrel Reamer Assessment Encounter Date Assessment Date Assessment LastModified by Organization Details LastModified Time 03/04/2024 03/04/2024 The total time devoted to today's encounter, including both the dtuv-yb-jtik time with the patient and/or family/caregi josefina and mdj-rola-gq-f patrick time I personally spent is 44 minutes. Not available 03/04/2024 17:47:18 Plan of Treatment Reminders Order Date Submit Date Provider Last Modified By Organization Details Last Modified Time Details Appointments Follow Up 2024 01:20P Allan Her Not available Not available Not available Lab BMP, serum or plasma 2023 024 [facility] (Registration ), [facility] [facility] [place], [address], 04/19/2024 11:42:49 vitamin D, 25-hydrox y, total, serum 2023 024 [facility] (Registration ), [address] [facility] [place], [address], 04/18/2024 16:09:19 HbA1c (hemoglob in A1c), blood 2023 [facility] (Registration ), [address] [place] [address] [place], [address], 04/19/2024 11:39:49 TSH, serum, reflex free T4 2023 024 [facility] (Registration ), [address] [place] [address] [place], [address], 04/19/2024 11:40:25 CBC 2023 [facility] (Registration ), [address] [place] [address] [place], [address], 04/18/2024 15:08:25 ferritin, serum or plasma 2023 [facility] (Registration ), [address] [place] [address] [place], [address], 04/19/2024 11:41:22 iron + total iron-bind ing capacity (TIBC), serum 2023 [facility] (Registration ), [address] [place] [address] [place], [address], 04/19/2024 11:43:17 Referral None recorded. Procedures None recorded. Surgeries None recorded. Imaging None recorded. Medication Orders hydromorp ricky 2 mg tablet 2023 024 [facility] [place], [address], 03/04/2024 15:12:30 levothyro xine 75 mcg tablet 2023 024 [email or web address], [address] [place], [address], 03/04/2024 16:32:19 Patient TargetsNo targets recorded. Patient InstructionsNo instructions recorded. 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 None Reported. Problems Name Problem SNOMED Code Status Onset Date Resolution Date Notes Provider Name and Address Organization Details Recorded Time Osteopor otic fracture Active 2023 Zoledron ate started at time of humeral fracture 2023- MD [address], [place], [address] , [facility] 4 17:34:10 Hypothyr oidism 06197765 Active [address] EVIE shaw, [facility] 4 10:29:59 [facility] hyperten jason 42471010 Active [address] EVIE shaw, [facility] 4 10:29:36 Hyperlip idemia 61346153 Active 1959 on statin MD [address], [place], [address] , [facility] 4 20:35:18 Spinal stenosis of lumbar region 56521756 Active 2012 s/p lumbar foramino parish L4 MD [address], [place], [address] , [facility] 4 20:36:41 Sleep apnea 06649805 Active 2012 on CPAP MD [address], [place], [address] , [facility] 4 20:39:31 Gastroes ophageal reflux disease without esophagi tis 144637313 Completed 195908/12/2023 Removal Reason: resolved with surgical repair of HH MD [address], [place], [address] , [facility] 4 10:41:24 Family history of malignan t neoplasm of digestiv e organ 953422507 Active [address], [place], [address] , [facility] 4 20:37:03 Paresthe samir 57882521 Completed 201412/01/2014 11/28/19 15 - Comments only - Ana Her MD - check B12 and folate Problem Code: R20.2; Problem Code Type: ICD-10; Not Available [facility] 3 05:53:48 Adult health examinat ion Active [address], [place], [address] , [facility] 4 20:33:34 Pre-surg [...] Z01.818; Problem Code Type: ICD-10; Not Available [facility] 3 05:53:48 Localize d edema 097812574 Completed 201501/29/2016 12/13/19 16 - Comments only - Ana Her MD - and some on left as well, will check BMP. 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 4 10:32:59 Pain in left lower limb 391548930 Completed 201607/27/2016 06/27/19 17 - Comments only [...] M79.605; Problem Code Type: ICD-10; EVIE shaw, [facility] 4 10:32:00 Epidermo id cyst of skin 147147142 Completed 201611/14/2016 10/17/19 17 - Comments only - Ana Her MD - Inflamed , I suggeste d hot packing, if not resolvin g we can refer to Dr. Nusrat esparza for removal. Problem Code: L72.3; Problem Code Type: ICD-10; Not Available [facility] 3 05:53:49 Chronic ulcer of foot 746404310 Completed 201601/16/2017 12/18/19 17 - Comments only - Ana Her MD - Due to injury. This does appear to have some granulat ion tissue and to be healing. She is given a prescrip tion for Keflex to take only if erythema seems to be extendin g. Problem Code: L97.509; Problem Code Type: ICD-10; Not Available [facility] 3 05:53:49 Diarrhea 43827089 Completed 201602/10/2017 02/05/20 17 - Comments only - Ana Her MD - Persiste nt over several months, we will collect stool for C. difficil e, Giardia, culture, and lactofer rin Problem Code: R19.7; Problem Code Type: ICD-10; MD [address], [place], [address] , [facility] 4 21:03:03 Polyp of cervix 01647764 Active 2016 EVIE shaw, [place] - [facility]. 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 6 mm PT1NO E2P2 poistive , HER2 negative MD [address], [place], [address] , [facility] 4 20:38:49 Pain in left lower limb 470226756 Active 2016 EVIE shaw, [facility]. 4 10:32:00 Pain in thoracic spine 255062700 Active 2016 EVIE shaw, [facility]. 4 10:32:06 [facility] 01689080 [facility] 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 4 14:36:02 Tachycar lea 3691658 Completed 201811/25/2018 Problem Code: R00.0; Problem Code Type: ICD-10; Not Available [facility] 3 05:53:51 Pre-surg ruben evaluati on Completed 201811/25/2018 Problem Code: Z01.818; Problem Code Type: ICD-10; Not Available [facility] 3 05:53:51 Iron deficien cy anemia 24399245 Active 2019 elevated MCV: normal B12 2021, normal folate 2018 IV iron 2023 EGD 01/2022 paraesop hageal hernia (since repaired ) colo 03/2017 normal ANA HER MD [address], [place], [address] , [facility] 4 11:44:45 Lumbago with sciatica 011734690 Completed 201903/16/2020 02/24/20 20 - Comments only - Vy Pinon RN [facility] - Likely aggravat ed by increase d [...] M54.40; Problem Code Type: ICD-10; Not Available [facility] 3 05:53:52 Right side sciatica 59784493185 9101 Active 2019 EVIE shaw, [facility] 4 10:33:09 Left side sciatica 55992328110 9104 Active [address], [place], [address] , [facility] 4 17:20:20 Diaphrag matic hernia 28362118 Completed 202108/11/2023 Removal Reason: s/p repair MD [address], [place], [address] , [facility] 4 20:50:39 History of SARS-CoV -2 83706176036 0820053 Completed 202104/04/2022 03/21/20 22 - Comments only - Ana Her MD - testing is negative today in the office. Still some fatigue but otherwis e recoveri ng. Did get MAB. Already had covid bivalent booster prior to illness Problem Code: Z86.16; Problem Code Type: ICD-10; Not Available [facility] 3 05:53:53 Diarrhea 82083358 Completed 202104/18/2022 Problem Code: R19.7; Problem Code Type: ICD-10; MD [address], [place] [address] , [facility] 4 21:03:02 Screenin g mammogra phy Completed 202208/11/[address], [place] [address] , [facility] 4 20:36:56 Carpal tunnel syndrome of left wrist 46530354520 9102 Completed 202201/23/2023 Problem Code: G56.02; Problem Code Type: ICD-10; Not Available [facility] 4 05:37:46 Diarrhea 72390667 Active 2022 started colestip ol 01/[address], [place] [address] , [facility] 4 21:03:02 Carpal tunnel syndrome of right wrist 53123338117 9108 Completed 201803/19/2020 Problem Code: G56.01; Problem Code Type: ICD-10; Not Available [facility] 3 05:53:55 Pain of left knee joint 73530215008 4107 Completed 202107/30/2022 Problem Code: M25.562; Problem Code Type: ICD-10; Not Available [facility] 3 05:53:55 Hypersom korina 25824818 Completed 201311/27/2014 Problem Code: 780.54; Problem Code Type: ICD-9; Not Available [facility] 3 05:53:56 Screenin g for disorder Completed 201909/11/2021 Problem Code: Z13.9; Problem Code Type: ICD-10; Not Available [facility] 3 05:53:56 Anemia 916976967 Completed 201903/19/2020 Problem Code: D64.9; Problem Code Type: ICD-10; Not Available [facility] 3 05:53:56 Long-ter m current use of anticoag ulant 467118535 Completed 201709/01/2018 Problem Code: Z79.01; Problem Code Type: ICD-10; Not Available [facility] 3 05:53:57 Chronic rhinitis 77679051 Completed 202108/12/2021 Problem Code: J31.0; Problem Code Type: ICD-10; Not Available [facility] 3 05:53:57 Impaired fasting glycemia 319952212 Completed 201401/28/2023 Not Available [facility] 3 05:53:57 Fatigue 39073031 Completed 201903/19/2020 Problem Code: R53.83; Problem Code Type: ICD-10; Not Available [facility] 3 05:53:58 Upper respirat ory tract infectio n caused by Influenz a A 03040941489 9104 Completed 201707/02/2017 Problem Code: J09.x2; Problem Code Type: ICD-10; Not Available [facility] 3 05:53:59 Diarrhea 07533372 Completed 201709/01/2018 ANA HER MD [address], [place], [address] , [facility]. 4 21:03:02 Acute upper respirat ory infectio n 24870966 Completed 202108/26/2021 Problem Code: J06.9; Problem Code Type: ICD-10; Not Available [facility] 3 05:53:59 Pain in right foot 05918140519 9107 Completed 202207/30/2022 Problem Code: M79.671; Problem Code Type: ICD-10; Not Available [facility] 3 05:54:00 Breast composit ion 073492430 Completed 201601/28/2023 Not Available [facility] 3 05:54:00 Changes in skin texture 806249671 Completed 202207/30/2022 Problem Code: R23.4; Problem Code Type: ICD-10; Not Available [facility] 3 05:54:01 Spasm 57792082 Completed 201603/23/2017 Problem Code: R25.2; Problem Code Type: ICD-10; EVIE RUFUS [facility], [facility] 4 10:33:28 Hyperten sive disorder 24869778 Completed 11/28/19 15 - Comments only - Ana Her MD - [facility] ed, no change in medicati ons Not Available [facility] 3 05:54:03 Arthralg ia of the ankle and/or foot 094566373 Completed 201501/30/2016 Problem Code: M25.571; Problem Code Type: ICD-10; Not Available [facility] 3 05:54:03 Dyspnea 565542139 Completed 201903/19/2020 Problem Code: R06.02; Problem Code Type: ICD-10; Danica Felix colin, [facility] 4 14:39:47 Trigger finger of right hand 72369872814 823160 Completed 201803/19/2020 Problem Code: M65.341; Problem Code Type: ICD-10; Not Available [facility] 3 05:54:06 Cough 84728608 Completed 202108/12/2021 Problem Code: R05.1; Problem Code Type: ICD-10; Not Available [facility] 3 05:54:06 At risk - finding 095394325 Completed 201811/11/2018 Problem Code: Z91.89; Problem Code Type: ICD-10; Not Available [facility] 3 05:54:06 Cough 99316691 Completed 201706/15/2017 Problem Code: R05; Problem Code Type: ICD-10; Not Available [facility] 3 05:54:07 Preopera tive cardiova scular examinat ion Completed 202112/18/2021 Problem Code: Z01.810; Problem Code Type: ICD-10; Not Available [facility] 3 05:54:08 Arterial bruit 61374076 Completed 202109/11/2021 Not Available [facility] 3 05:54:08 Gastroes ophageal reflux disease 116634436 Completed Not Available [facility] 3 05:54:09 Imaging of musculos keletal system abnormal 840023700 Completed 201603/23/2017 Problem Code: R93.7; Problem Code Type: ICD-10; Not Available [facility] 3 05:54:10 Blood glucose outside referenc e range 249133140 Completed 201503/20/2016 Problem Code: R73.09; Problem Code Type: ICD-10; Not Available [facility] 3 05:54:10 Abdomina l aortic aneurysm 561205963 Completed 195912/04/2014 Not Available [facility] 3 05:54:11 Lung field abnormal 895366750 Completed 202109/11/2021 Problem Code: R91.8; Problem Code Type: ICD-10; Not Available [facility] 3 05:54:11 Ingrowin g nail 713524703 Completed 201503/23/2017 Problem Code: L60.0; Problem Code Type: ICD-10; Not Available [facility] 3 05:54:11 Hypokale karyn 83638251 Completed 201504/17/2016 Problem Code: E87.6; Problem Code Type: ICD-10; Not Available [facility] 3 05:54:12 Spasm 75632111 Completed 202201/23/2023 Problem Code: M62.838; Problem Code Type: ICD-10; EVIE shaw [facility] 4 10:33:28 Aneurysm of ascendin g aorta 116026463 Active [address], [place] [address] , [facility] 4 19:24:51 Bicuspid aortic valve 02664821 Active 2023 severe by ECHO 07/[address], [place] [address] , [facility] 4 19:33:10 Osteopen ia 809571194 Active 2023 EVIE shaw, [facility] 4 10:28:13 Venous stasis 13875947 Active 2023 EVIE shaw, [facility] 4 10:29:14 Chronic kidney disease 153728414 Active 2017 Stage 3bA1v eGFR 42-[address], [place] [address] , [facility] 4 20:49:29 Dyspnea on exertion 70101696 Active 2018 Danica shaw, [facility] 4 14:39:44 Hiatal hernia 92683011 Completed 202108/11/2023 lap repair MD Young [address], [facility] [address] , [facility] 4 20:51:15 Edema of lower extremit y 325035393 Active [address], [facility] [address] , [facility] 4 20:55:49 Atrial fibrilla tion 83474685 Active 2016 s/p pulmonoa ry vein isolatio n 05/2018, chronic anticoag ulation with Xarelto MD Young [address], [address] [place] [address] 4 09:14:08 Obesity 790486840 Active [address], [address] 4 09:26:22 Cardiac pacemake r in situ 200617906 Active 2023 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 MD Young [address], [address] 4 09:13:49 Swelling of bilatera l lower limbs 001691033 Active [address], [address] 14:35:13 Problem Notes None recorded. Procedures Surgical History Date Name Laterality Status Provider Name and Address Organization Details Recorded Time 10/26/19 cardiac pacemaker procedure completed MD Young [address] Dr, [address] 03/16/2024 16:33:27 10/20/19 24 transcatheter aortic valve implantation completed MD Young [address], [address] 03/16/2024 16:32:53 Imaging Results None recorded. Procedure Notes None recorded. Medical Equipment None Reported. Allergies Allergen ID Allergen Name Allergen Category Reaction Reaction Severity Criticality Documentation Date Start Date Code Code System Note Provider Name and Address Organization Details Recorded Time 64496 amlodipin e medicatio n swelling severe high 11/18/2023 29881 RxNorm Shaneka Herrera MA null, [facility] 13:47:28 Medications Name Sig Start Date Stop [...] tab by mouth daily 06/02 completed [employer] Not Available Not Available Not Available [...] 1 tab by mouth daily 2013 active [employer] Not Available Not Available Not Available gabapenti n 100 mg capsule Take 1 cap by mouth three times daily 2015 active Not Available Not Available Not Avai lable metoprolo l succinate ER 25 mg tablet,ex tended release 24 hr Take 1 tab by mouth daily 2017 active [employer] Not Available Not Available Not Available [...] . Not Available Not Available Not Available [employer] Verio Flex Meter 02/22 completed Tiki gave [...] Last Updated DateTime 164.34 cm 29.1 kg/m2 47694.4 8 g 97.7 [degF] 96 % 96 % 104 /min 18 /min 120 mm[Hg] 74 mm[Hg] KRYSTAL SKELTON LPN [facility] 14:18:40 Social History Question Answer Notes LastModified by Organizat ion Details LastModified Time Tobacco Smoking Status Never Smoker KRYSTAL SKELTON LPN [facility] 08/12/2023 07:44:55 Date Of Most Recent HSA [...] And Wanted Help? (For Example, If You [place] Very Nervous, Lonely, Or Blue; Got Sick [...] Details Recorded Time Pneumococcal conjugate PCV20, polysaccharide MGL204 conjugate, adjuvant, PF 4 completed MD [address], [address] 08/12/2023 11:52:18 COVID-19, mRNA, LNP-S, PF, vanda-sucrose, 30 mcg/0.3 mL 4 completed MD Young [address], [address] 08/12/2023 11:52:18 COVID-19, mRNA, LNP-S, PF, vanda-sucrose, 30 mcg/0.3 mL 4 completed MD Young [address], [address] 03/04/2024 15:04:49 Tdap 1 completed Not Available [facility] 03/13/2023 06:18:37 Tdap 1 completed Not Available [facility] 03/13/2023 06:18:37 zoster live 5 completed Not Available [facility] 03/13/2023 06:18:37 Influenza, high-dose, trivalent, PF 8 completed Not Available [facility] 03/13/2023 06:18:38 Influenza, split virus, trivalent, preservative 6 completed Not Available [facility] 03/13/2023 06:18:38 Pneumococcal Conjugate, unspecified formulation 5 completed Not Available [facility] 03/13/2023 06:18:38 Influenza, split virus, quadrivalent, preservative 7 completed Not Available [facility] 03/13/2023 06:18:38 Influenza, high-dose, quadrivalent, PF 2 completed Not Available [facility] 03/13/2023 06:18:38 Influenza, high-dose, quadrivalent, PF 1 completed Not Available [facility] 03/13/2023 06:18:38 Influenza, high-dose, quadrivalent, PF 0 completed Not Available [facility] 03/13/2023 06:18:38 COVID-19, mRNA, LNP-S, PF, 100 mcg/0.5mL dose or 50 mcg/0.25mL dose 1 completed Not Available [facility] 03/13/2023 06:18:38 COVID-19, mRNA, LNP-S, PF, 100 mcg/0.5mL dose or 50 mcg/0.25mL dose 1 completed Not Available [facility] 03/13/2023 06:18:39 COVID-19, mRNA, LNP-S, PF, 100 mcg/0.5mL dose or 50 mcg/0.25mL dose 1 completed Not Available [facility] 03/13/2023 06:18:39 COVID-19, mRNA, LNP-S, bivalent, PF, 30 mcg/0.3 mL dose 2 completed Not Available [facility] 03/13/2023 06:18:39 pneumococcal polysaccharide PPV23 1 completed Not Available [facility] 03/13/2023 06:18:39 influenza, unspecified formulation 6 completed Not Available [facility] 03/13/2023 06:18:39 influenza, unspecified formulation 4 completed Not Available [facility] 03/13/2023 06:18:39 Influenza, high-dose, quadrivalent, PF 3 completed Not Available [facility] 05/15/2023 05:33:16 Past Encounters Encounter ID Performer Location Encounter Start Date Encounter Closed Date Diagnosis/Indication Diagnosis SNOMED-CT Code Diagnosis ICD10 Code [id number] ANA HER MD [address] [place] [place] [address] 03/04/2024 14:02:04 03/04/2024 15:12:46 Active or passive immunization 548764855 Z23 Hypothyroidism 73246053 E03.9 Osteoporotic fracture 46 824879 M80.00XD Iron defic iency anemia 22359254 D50.9 Chronic ki dney disease 095764507 N18.9 Prediabetes 842318716 R7 3.03 Health Concerns Section Related Observation LastModified by Organization Detai ls LastModified Time None Recorded Concern Status LastModified by Organization Details LastModified Time None Recorded Payers Encounter Date Sequence Insurance Name Policy Number Policy Palacio Covered Member ID Palacio Member ID Guarantor Name 03/04/2024 1 [place] [id number] Digna Olson [id number] Digna Christiansens[employer] 03/04/2024 2 [place] [facility] [id number] Digna Christiansensocorro [id number] Digna Lemus Whitney Notes Date Note Type Note Provider Name and Address Organization Details Recorded Time 03/04/2024 text/html Pt was admitted to [facility] 12/10-12/16 with fall and humeral fracture. [...] TAVR. ANA HER MD [address], [place], [address], [facility]. 03/04/2024 17:49:41 OBGyn Episode No OBEpisode recorded.
--- OUTSIDE RECORDS SUMMARY | 2024-04-29 11:06 | XMS_ITS | Encounter Summary ---
Author Organization [place] [address] Care Team Providers Care Business Analysis Professional Name Role Phone Ana Her MD Primary Care Provider [phone] Encounter Details Date Type Department Care Team (Late st Contact Info) Description 03/10/2022 1:35 AM EST Ancillary Procedure Radiology Library at [facility] [place] [place] [address] Ana Her MD [address] [place] [address] [address] [place], [place] [id number] Social History Tobacco Use Types Packs/Day Years [...] Her MD IM FILM LIBRARY ORD ERABLES [place], [place] documented in this encounter Visit Diagnoses Not on filedocumented in this encounter Care Teams Business Analysis Professional Relationship Specialty Start Date End Date Ana Her MD [facility] JAY HOGAN [address] [place] [address] PCP - General 07/29/13 documented as of this encounter
--- OUTSIDE RECORDS SUMMARY | 2024-04-29 11:06 | XMS_ITS | Encounter Summary ---
Author Organization [facility] [place] [address] Care Team Providers Care Pyrometer Operator Name Role Phone Ana Her MD Primary Care Provider [phone] Encounter Details Date Type Department Care Team (Late st Contact Info) Description 03/09/2022 Telephone [place] [address] Prakash Mendez MD [facility] [place] [address] Social History Tobacco Use Types Packs/Day Years [...] the mobile number listed in her chart ([phone]). Her other daughter answered the phone and reported that she had just dropped her off in the Emergency Department at [facility] and parked the car. She was walking back to the building to be with her. I reassured her that going to the Emergency Department seemed like a reasonable plan. I assured her that we are always happy to see her here at [facility] anytime and that they could call back anytime with further questions or concerns. This note will be routed to the provider mentioned above. Prakash Mendez MD documented in this encounter Plan of Treatment Not on file documented as of this encounter Visit Diagnoses Not on filedocumented in this encounter Care Teams Pyrometer Operator Relationship Specialty Start Date End Date Ana Her MD [address] [place] [address] PCP - General 07/29/13 documented as of this encounter
--- OUTSIDE RECORDS SUMMARY | 2024-04-29 11:07 | XMS_ITS | Encounter Summary ---
[place] [address] Care Team Providers Care Coil Spring Assembler Name Role Phone Ana Her MD Primary Care Provider [phone] Reason for Visit * Reason Comments Follow-up Encounter Details Date Type Department Care Team (Late st Contact Info) Description 05/22/2020 11:40 AM EST Office [place] [address] Jeanine Lobato APRN [facility] [place] [address] Encounter for follow-up surveillance of breast cancer; [...] ??Excision with image-guided localization ?Lymph Node Sampling: ??[place] lymph node(s) ?Specimen Laterality: ??Left Tumor ?Histologic [...] ??DCIS not present in specimen Lymph Nodes ?[place] Lymph Nodes: [place] lymph node biopsy performed ?Number of [place] Nodes Examined: ??3 ?Number of Lymph Node(s) [...] herex- speak almost daily. He lives in [place] and is beginning to show early signs [...] available at [employer] and [employer]. All questions were answered to the patient's satisfaction and they state understanding and agreement with today's treatment plan. They are encouraged to follow up sooner if they develop any new or concerning symptoms. Jeanine Lobato APRN Surgical Oncology P [phone] F [phone] [facility] documented in this encounter Plan of [...] who have questions please contact the health care transitions manager that requested your imaging first. ? Electronically signed by: Digna Neol MD, [facility] ([phone]), at 06/11/2021 9:20 AM Jeanine Lobato APRN [...] mammogram documented in this encounter Care Teams Coil Spring Assembler Relationship Specialty Start Date End Date Ana Her MD [facility] [address] [place] [address] PCP - General 07/29/13 documented as of this encounter
--- OUTSIDE RECORDS SUMMARY | 2024-04-29 11:07 | XMS_ITS | Encounter Summary ---
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
--- OUTSIDE RECORDS SUMMARY | 2024-04-29 11:07 | XMS_ITS | Encounter Summary ---
[place] [address] Care Team Providers Care Flag Decorator Name Role Phone Ana Her MD Primary Care Provider [phone] 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 * Consultation (Routine) - Closed Specialty Diagnoses / Procedures Referred By Christiano hackett Referred To Contact General Surgery Diagnoses Hiatal hernia Ana Her MD [address] [place] [address] [facility] Surgery [address] [place] [id number] Referral ID Status Reason Start Date Expiration Date V isits Requested Visits Authorized [id number] Closed Consult, Test & Treat 09/23/2021 09/23/2022 6 6 Encounter Details Date Type Department Care Team (Late st Contact Info) Description 09/23/2021 Transcribe Orders eDH Incoming Referrals [phone] Ana Her MD [address] [place] [address] Hiatal hernia Social History Tobacco [...] gangrene documented in this encounter Care Teams Flag Decorator Relationship Specialty Start Date End Date Ana Her MD [address] [place] [address] PCP - General 07/29/13 documented as of this encounter
--- OUTSIDE RECORDS SUMMARY | 2024-04-29 11:07 | XMS_ITS | Encounter Summary ---
Author Organization [facility] [place] [address] Care Team Providers Care Derrick Worker Name Role Phone Ana Her MD Primary Care Provider [phone] Reason for Visit * Reason Comments Advice Only BBR * Consultation (Routine) - Closed Specialty Diagnoses / Procedures Referred By Christiano hackett Referred To Contact Plastic Surgery Diagnoses 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, estrogen receptor positive Macromastia Jeanine Lobato APRN [facility] [place] [address] [facility] Plastic Surg [address] [place] [address] Referral ID Status Reason Start Date Expiration Date V isits Requested Visits Authorized [id number] Closed Consult, Test & Treat 06/11/2021 06/11/2022 1 1 Encounter Details Date Type Department Care Team (Late st Contact Info) Description 07/09/2021 8:30 AM EST Office [place] [address] Med Hudson MD [facility] [place] [address] Macromastia Social History Tobacco Use [...] physical with your primary care doctor and English Composition Teacher clearance Two Weeks prior to Surgery Do [...] Day of Surgery You will need a stake driver. If you do not have a stake driver, your surgery will be canceled. DO [...] For questions pertaining to your surgical date [phone] For nursing related questions [phone] On weekends, holidays or after office hours: Call and ask the gas roller operator to page the Plastic Surgery Resident cash on delivery clerk. documented in this encounter Progress Notes * [...] and was normal. This was performed at [facility]. She has completed a breast specific questionnaire: [...] None of the time Conservative Therapy Treatments: [facility] CON[facility]ATIVE THERAPY TREATMENTS 07/09/2021 Physical [...] 6.43) performed by Malika Chen MD at [facility] MAIN OR ??? PRO INTRAOP SENTINEL LYMPH ID W/DYE INJECTION Left 03/30/2017 INTRAOPERATIVE ID (MAPPING) SENTINEL LYMPH NODE,INCLUDES INJECTION (WRVU 2.5) performed by Malika Chen MD at [facility] MAIN OR ??? PRO MASTECTOMY PARTIAL Left 03/30/2017 MASTECTOMY PARTIAL (WRVU 10.13) performed by Malika Chen MD at [facility] MAIN OR Family History Problem Relation [...] surgery is best done at a realistic care home stable weight. We talked about the outpatient [...] revisions for scarring or asymmetry.) Garcia or Amanda Pattern Incision: More scarring on breast, but [...] Timeframe: Elective Procedure: Bilateral breast reduction CPT: 83433 Surgical Technique: Garcia, Pedicle Surgical site: Breasts Side: Bilateral Anesthesia: General Follow up: 1 day for drain removal; 7-10 days for HCK PAT: H+P PCP, Cardiac clearance. Need to discontinue blood thinners pre-op? Xarelto documented in this encounter Plan of Treatment Not on file documented as of this encounter Visit Diagnoses Diagnosis Macromastia Hypertrophy of breast documented in this encounter Care Teams Derrick Worker Relationship Specialty Start Date End Date Ana Her MD [address] [place] [address] PCP - General 07/29/13 documented as of this encounter
--- OUTSIDE RECORDS SUMMARY | 2024-04-29 11:07 | XMS_ITS | Encounter Summary ---
Author Organization [facility] [place] [address] Care Team Providers Care Horticultural Farmworker Name Role Phone Ana Her MD Primary Care Provider [phone] Encounter Details Date Type Department Care Team (Late st Contact Info) Description 04/23/2017 [place] [address] Marjorie Ariza Social History Tobacco Use Types [...] Marjorie Ariza - 04/23/2017 2:43 PM EST Warehouse Forklift Operator Cattle Dipper met with pt after consultation with medical [...] on filedocumented in this encounter Care Teams Horticultural Farmworker Relationship Specialty Start Date End Date Ana Her MD [address] [facility] [address] [place] [address] PCP - General 07/29/13 documented as of this encounter
--- OUTSIDE RECORDS SUMMARY | 2024-04-29 11:07 | XMS_ITS | Encounter Summary ---
Author Organization [facility] [place] [address] Care Team Providers Care Purchasing Engineer Name Role Phone Ana Her MD Primary Care Provider [phone] Encounter Details Date Type Department Care Team (Late st Contact Info) Description 10/23/2017 9:43 AM EDT - 10/23/2017 11:59 PM EDT Hospital En[place] [address] Hiral Padgett, WENDY History of breast cancer [...] breast documented in this encounter Care Teams Purchasing Engineer Relationship Specialty Start Date End Date Ana Her MD [address] [place] [address] PCP - General 07/29/13 documented as of this encounter
--- OUTSIDE RECORDS SUMMARY | 2024-04-29 11:07 | XMS_ITS | Encounter Summary ---
Author Organization [facility] [place] [address] Care Team Providers Care Official Court Reporter Name Role Phone Ana Her MD Primary Care Provider [phone] Encounter Details Date Type Department Care Team (Latest Contact Info) Description 05/22/2020 10:46 AM EST - 05/22/2020 11:59 PM [facility] Hospital Encounter Mammography/[place] [address] Jeanine Lobato APRN [facility] [place] [address] Malignant neoplasm of lower-outer quadrant of left [...] mammogram documented in this encounter Care Teams Official Court Reporter Relationship Specialty Start Date End Date Ana Her MD [facility] [address] [facility] [address] [place] [address] PCP - General 07/29/13 documented as of this encounter
--- OUTSIDE RECORDS SUMMARY | 2024-04-29 11:07 | XMS_ITS | Encounter Summary ---
[place] [address] Care Team Providers Care Digital Asset Manager Name Role Phone Ana Her MD Primary Care Provider [phone] Encounter Details Date Type Department Care Team (Late st Contact Info) Description 05/10/2018 2:15 PM EST Office [place] [address] Hiral Padgett, WENDY History of breast cancer [...] with image-guided localization ?Lymph Node Sampling: ?? [place] lymph node(s) ?Specimen Laterality: ?? Left Tumor [...] ?DCIS not present in specimen Lymph Nodes ?[place] Lymph Nodes: ?? [place] lymph node biopsy performed ?Number of [place] Nodes Examined: ?3 ?Number of Lymph Node(s) [...] mammogram today is cat 2. Leaving for [place] later today for a cardiac ablation/a fib at [facility]. Objective: Physical Exam Constitutional: [...] breast documented in this encounter Care Teams Digital Asset Manager Relationship Specialty Start Date End Date Ana Her MD [address] [place] [address] PCP - General 07/29/13 documented as of this encounter
--- OUTSIDE RECORDS SUMMARY | 2024-04-29 11:07 | XMS_ITS | Encounter Summary ---
Author Organization [facility] [place] [address] Care Team Providers Care Hand Rug Braider Name Role Phone Ana Her MD Primary Care Provider [phone] Encounter Details Date Type Department Care Team (Late st Contact Info) Description 05/10/2018 1:10 PM EST - 05/10/2018 11:59 PM EST Hospital Encounter Mammography/[place] [address] Hiral Padgett, WENDY Encounter for screening mammogram [...] cancer documented in this encounter Care Teams Hand Rug Braider Relationship Specialty Start Date End Date Ana Her MD [address] [place] [address] PCP - General 07/29/13 documented as of this encounter
--- OUTSIDE RECORDS SUMMARY | 2024-04-29 11:07 | XMS_ITS | Encounter Summary ---
[place] [address] Care Team Providers Care Resp Ther Name Role Phone Ana Her MD Primary Care Provider [phone] 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 * Diagnostic Test (Routine) - Closed Specialty Diagnoses / Procedures Referred By Christiano hackett Referred To Contact Radiology Diagnoses 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, estrogen receptor positive Osteopenia of neck of femur, unspecified laterality intermediate current 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 Procedures DXA Central-Spine, Hip, And/Or Whole Body (Generic) Ricky Lowry MD [facility] DR HEMATOLOGY/[place] [address] [facility] Rad Xray [address] [place] [address] [place] [address] Referral ID Status Reason Start Date Expiration Date V isits Requested Visits Authorized [id number] Closed Specialty Service Requested 05/10/2018 05/10/2019 1 1 Reason for Visit * Reason Comments Follow-up Encounter Details Date Type Department Care Team (Late st Contact Info) Description 05/10/2018 2:45 PM EST Office Visit Hematology and Oncology at [facility] [place] [address] Ricky Lowry MD 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, estrogen receptor positive; Osteopenia of neck of femur, unspecified laterality; intermediate current 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 Social History [...] cancer cells with immunostaining) Stain intensity: Strong [place] immunoreactivity: Positive (>90% cancer cells with immunostaining) [...] ??Excision with image-guided localization ?Lymph Node Sampling: ??[place] lymph node(s) ?Specimen Laterality: ??Left Tumor [...] ??DCIS not present in specimen Lymph Nodes ?[place] Lymph Nodes: [place] lymph node biopsy performed ?Number of [place] Nodes Examined: ??3 ?Number of Lymph [...] Spinal stenosis > A Fib. Cardiology at [facility]. Most recent DEXA scan was last year at [facility]. There is no history of thromboembolic [...] is planned for later this week (at [facility] No new problems with VELEZ, diplopia, cough, [...] BMD measurements and plots are available in [employer] under the imaging tab. Paper copies will be sent to providers without [employer] access. If you have received this report without the data sheet and do not have access to [employer], please contact Radiology Junior Marketing Associate at [phone] Thursday thru Thursday 8am-4pm. Thank you for [...] BMD measurements and plots are available in [email or web address] the imaging tab. Paper copies will be sent to providers without [employer] access.If you have received this report without the data sheet and do not haveaccess to [employer], please contact Radiology Junior Marketing Associate at [phone] Thursday thruFriday 8am-4pm. Thank you for letting us participate in the care of this patient. Forquestions regarding this report, please contact the number below. Electronically signed by: Khushi Hughes [facility] ([phone]),at 11/10/2018 10:55 AM Ricky Lowry MD IMG DEXA ORDERABLES documented in this encounter Visit Diagnoses Diagnosis 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, estrogen receptor positive Osteopenia of neck of femur, unspecified laterality intermediate current 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 Use 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s 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, estrogen receptor positive Osteopenia of neck of femur, unspecified laterality intermediate current 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 Use 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s documented in this encounter Care Teams Resp Ther Relationship Specialty Start Date End Date Ana Her MD [address] [place] [address] PCP - General 07/29/13 documented as of this encounter
--- OUTSIDE RECORDS SUMMARY | 2024-04-29 11:07 | XMS_ITS | Encounter Summary ---
Author Organization [facility] [address] Care Team Providers Care Medical Billing Supervisor Name Role Phone Ana Her MD Primary Care Provider [phone] Encounter Details Date Type Department Care Team (Latest Contact Info) Description 03/30/2017 8:30 AM [facility] Hospital [place] [address] [facility] [place] [address] Malignant neoplasm of upper-outer quadrant of left [...] documented in this encounter Results * Mammo [place] Node Injection (03/30/2017 9:01 AM EST) Anatomical [...] mCi documented in this encounter Care Teams Medical Billing Supervisor Relationship Specialty Start Date End Date Ana Her MD [address] [place] [address] PCP - General 07/29/13 documented as of this encounter
--- OUTSIDE RECORDS SUMMARY | 2024-04-29 11:07 | XMS_ITS | Encounter Summary ---
Author [place] [address] Care Team Providers Care Knock Out Hand Name Role Phone Ana Her MD Primary Care Provider [phone] Reason for Visit * Reason Comments Follow-up Encounter Details Date Type Department Care Team (Late st Contact Info) Description 11/15/2020 4:00 PM EDT Office Visit Hematology [place] [address] Laura Joaquin PA Malignant neoplasm of lower-outer [...] in this encounter Progress Notes * Laura Joaquni PA - 11/15/2020 4:00 PM EDT Breast [...] ??Excision with image-guided localization ?Lymph Node Sampling: ??[place] lymph node(s) ?Specimen Laterality: ??Left Tumor ?Histologic [...] ??DCIS not present in specimen Lymph Nodes ?[place] Lymph Nodes: [place] lymph node biopsy performed ?Number of [place] Nodes Examined: ??3 ?Number of Lymph Node(s) [...] Spinal stenosis > A Fib. Cardiology at [facility]. S/P successful cardioversion [...] [facility] Pager - [phone] documented in this encounter Plan of Treatment Not on file documented as of this encounter Visit Diagnoses Diagnosis 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, estrogen receptor positive documented in this encounter Care Teams Knock Out Hand Relationship Specialty Start Date End Date Ana Her MD [address] [place] [address] PCP - General 07/29/13 documented as of this encounter
--- OUTSIDE RECORDS SUMMARY | 2024-04-29 11:07 | XMS_ITS | Encounter Summary ---
Author Organization [facility] [place] [address] Care Team Providers Care Physician Coding Specialist Name Role Phone Ana Her MD Primary Care Provider [phone] Encounter Details Date Type Department Care Team (Late st Contact Info) Description 03/30/2017 [place] [address] January Ward MSW Social History Tobacco Use [...] was recently diagnosed with invasive mucinous carcinoma. [facility] attempted to meet with pt in Same Day surgery this morning but she was still in radiology. I spoke with her ex-, Keith, who states she will be staying with him tondenise. Their granddaughters are traveling from [place] and plan to accompany pt to see her cellar supervisor at [facility] tomorrow. Pt has been followed by this physician for her cardiac problems. [facility] will continue to provide support and resources to pt. documented in this encounter Plan of Treatment Not on file documented as of this encounter Visit Diagnoses Not on filedocumented in this encounter Care Teams Physician Coding Specialist Relationship Specialty Start Date End Date Ana Her MD [address] [facility] [address] [place] [address] PCP - General 07/29/13 documented as of this encounter
--- OUTSIDE RECORDS SUMMARY | 2024-04-29 11:07 | XMS_ITS | Encounter Summary ---
[place] [address] Care Team Providers Care Patient Access Specialist Name Role Phone Ana Her MD Primary Care Provider [phone] Encounter Details Date Type Department Care Team (Late st Contact Info) Description 12/24/2021 Telephone [place] [address] Chelsie Lauren Social History Tobacco Use Types [...] on filedocumented in this encounter Care Teams Patient Access Specialist Relationship Specialty Start Date End Date Ana Her MD [address] [place] [address] PCP - General 07/29/13 documented as of this encounter
--- OUTSIDE RECORDS SUMMARY | 2024-04-29 11:07 | XMS_ITS | Encounter Summary ---
[place] [address] Care Team Providers Care Sponge Diver Name Role Phone Ana Her MD Primary Care Provider [phone] Encounter Details Date Type Department Care Team (Late st Contact Info) Description 11/09/2018 2:45 PM EDT Office Visit [place]ology [place] [address] Ricky Lowry MD Malignant neoplasm of lower-outer [...] cancer cells with immunostaining) Stain intensity: Strong ID immunoreactivity: Positive (>90% cancer cells with immunostaining) [...] ??Excision with image-guided localization ?Lymph Node Sampling: ??[place] lymph node(s) ?Specimen Laterality: ??Left Tumor ?Histologic [...] ??DCIS not present in specimen Lymph Nodes ?[place] Lymph Nodes: [place] lymph node biopsy performed ?Number of [place] Nodes Examined: ??3 ?Number of Lymph Node(s) [...] Spinal stenosis > A Fib. Cardiology at [facility]. S/P successful cardioversion May 2018. DEXA scan [...] laterality documented in this encounter Care Teams Sponge Diver Relationship Specialty Start Date End Date Ana Her MD [address] [place] [address] PCP - General 07/29/13 documented as of this encounter
--- OUTSIDE RECORDS SUMMARY | 2024-04-29 11:07 | XMS_ITS | Encounter Summary ---
[place] [address] Care Team Providers Care Upsetting Machine Operator Name Role Phone Ana Her MD Primary Care Provider [phone] Encounter Details Date Type Department Care Team (Late st Contact Info) Description 05/19/2017 Telephone Hematology [place] [address] Sandy Chapman Social History Tobacco Use Types [...] on filedocumented in this encounter Care Teams Upsetting Machine Operator Relationship Specialty Start Date End Date Ana Her MD [address] [place] [address] PCP - General 07/29/13 documented as of this encounter
--- OUTSIDE RECORDS SUMMARY | 2024-04-29 11:07 | XMS_ITS | Encounter Summary ---
[place] [address] Care Team Providers Care Network Cabler Name Role Phone Ana Her MD Primary Care Provider [phone] Encounter Details Date Type Department Care Team (Late st Contact Info) Description 11/01/2021 Telephone [place] [phone] Chelsie Lauren Social History Tobacco Use Types [...] on filedocumented in this encounter Care Teams Network Cabler Relationship Specialty Start Date End Date Ana Her MD [address] [place] [address] PCP - General 07/29/13 documented as of this encounter
--- OUTSIDE RECORDS SUMMARY | 2024-04-29 11:07 | XMS_ITS | Encounter Summary ---
[place] [address] Care Team Providers Care Tray Service Worker Name Role Phone Ana Her MD Primary Care Provider [phone] Encounter Details Date Type Department Care Team (Late st Contact Info) Description 06/12/2021 Telephone [place] [phone] Chelsie Lauren Social History Tobacco Use Types [...] on filedocumented in this encounter Care Teams Tray Service Worker Relationship Specialty Start Date End Date Ana Her MD [address] [place] [address] PCP - General 07/29/13 documented as of this encounter
--- OUTSIDE RECORDS SUMMARY | 2024-04-29 11:07 | XMS_ITS | Encounter Summary ---
Author Organization [facility] [place] [address] Care Team Providers Care Collar Turner Name Role Phone Ana Her MD Primary Care Provider [phone] Encounter Details Date Type Department Care Team (Latest Contact Info) Description 06/11/2021 8:41 AM EST - 06/11/2021 11:59 PM [facility] Hospital Encounter Mammography/[place] [phone] Jeanine Lobato APRN [facility] [place] [address] Malignant neoplasm of lower-outer quadrant of left [...] Take 40 mg by mouth daily. omega 1-avw-mnj-fish-turm salty 417 mg-120 mg- 276 mg-600 mg [...] have questions please contact the health care team coordinator scheduler that requested your imaging first. ? Jeanine Lobato PAYROLL HUMAN RESOURCES ASSISTANT IMG MAMMO ORD ERABLES documented in this encounter Visit Diagnoses Diagnosis 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, estrogen receptor positive Breast cancer screening by mammogram documented in this encounter Care Teams Collar Turner Relationship Specialty Start Date End Date Ana Her MD [address] [place] [address] PCP - General 07/29/13 documented as of this encounter
--- OUTSIDE RECORDS SUMMARY | 2024-04-29 11:07 | XMS_ITS | Encounter Summary ---
Author Organization [facility] [place] [address] Care Team Providers Care Community Sports Coordinator Name Role Phone Ana Her MD Primary Care Provider [phone] Encounter Details Date Type Department Care Team (Late st Contact Info) Description 05/31/2019 1:00 PM EST Office [place] [address] Jeanine Lobato [facility] [place] [address] Encounter for follow-up surveillance of breast cancer; [...] was obtained which revealed IDC which is ER/AR+, Her2-. She hasno known breast masses, no adenopathy, no nipple discharge. 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 He lives in [place]. She enjoys reading and cooking. She does [...] situation. Results: Imaging performed (bilateral mammogram) at [facility] [place] shows no evidence of malignancy, BIRADS [...] symptoms. Jeanine Lobato APRN Surgical Oncology P [phone] F [phone] [facility] documented in this encounter Plan [...] mammogram documented in this encounter Care Teams Community Sports Coordinator Relationship Specialty Start Date End Date Ana Her MD [facility] [address] [facility] [address] [place] [address] PCP - General 07/29/13 documented as of this encounter
--- OUTSIDE RECORDS SUMMARY | 2024-04-29 11:07 | XMS_ITS | Encounter Summary ---
Author Organization [facility] [place] [address] Care Team Providers Care Inspecting Supervisor Name Role Phone Ana Her MD Primary Care Provider [phone] 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 * Diagnostic Test (Routine) - Closed Specialty Diagnoses / Procedures Referred By Contac t Referred To Contact Radiology Diagnoses 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, estrogen receptor positive Osteopenia of neck of femur, unspecified laterality assisted current 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 Procedures DXA Central Spine, Hip, and/or Whole Body (Generic) Ricky Lowry MD [facility] HEMATOLOGY/[place] [address] [facility] Rad Xray [address] [place] [address] [place] [address] Referral ID Status Reason Start Date Expiration Date V isits Requested Visits Authorized [id number] Closed Specialty Service Requested 05/22/2020 11/19/2021 1 [...] and/or Whole Body (Generic) Ricky Lowry MD [facility] HEMATOLOGY/[place] [address] [facility] Rad Xray [address] [place] [address] Dr Se[place]DINE briscoe [address] Referral ID Status Reason Start Date Expiration Date V isits Requested Visits Authorized [id number] Closed Specialty Service Requested 05/22/2020 11/19/2021 1 1 Encounter Details Date Type Department Care Team (Latest Contact Info) Description 11/15/2020 2:25 PM EDT - 11/15/2020 11:59 PM EDT Hospital Encounter XRay at [address] [place] [address] Ricky Lowry MD Malignant neoplasm of lower-outer [...] Take 40 mg by mouth daily. omega 9-kgq-uxv-fish-turm salty 417 mg-120 mg- 276 mg-600 mg [...] BMD measurements and plots are available in EPernixData under the imaging tab. Paper copies will be sent to providers without E- access. If you have received this report without the data sheet and do not have access to [employer], please contact Radiology Italian Lecturer at [phone] Thursday thru Thursday 8am-4pm. Thank you for letting us participate in the care of this patient. ??If you are a health care provider and have any questions regarding this report, please contact the number below. ??For patients who have questions please contact the health career law clerk that requested your imaging first. ? Narrative [...] BMD measurements and plots are available in ETapTapunder the imaging tab. Paper copies will be sent to providers without - access.If you have received this report without the data sheet and do not haveaccess to [facility], please contact Radiology Italian Lecturer at [phone] Thursday thrrid 8am-4pm. Thank you for letting us participate in the care of this patient. If youare a health care provider and have any questions regarding this report,please contact the number below. For patients who have questions please contactthe health career law clerk that requested your imaging first. Ricky Lowry MD IMG DEXA ORDERABLES documented in this encounter Visit Diagnoses Diagnosis 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, estrogen receptor positive Osteopenia of neck of femur, unspecified laterality assisted current 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 Use 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s documented in this encounter Care Teams Inspecting Supervisor Relationship Specialty Start Date End Date Ana Her MD [address] [place] [address] PCP - General 07/29/13 documented as of this encounter
--- OUTSIDE RECORDS SUMMARY | 2024-04-29 11:07 | XMS_ITS | Encounter Summary ---
[place] [address] Care Team Providers Care Construction Teacher Name Role Phone Ana Her MD Primary Care Provider [phone] Reason for Visit * Reason Comments Follow-up Encounter Details Date Type Department Care Team (Late st Contact Info) Description 11/29/2019 2:45 PM EDT Office Visit Hematology [place] [phone] Ricky Lowry MD Malignant neoplasm of lower-outer [...] ??Excision with image-guided localization ?Lymph Node Sampling: ??[place] lymph node(s) ?Specimen Laterality: ??Left Tumor ?Histologic [...] ??DCIS not present in specimen Lymph Nodes ?[place] Lymph Nodes: [place] lymph node biopsy performed ?Number of [place] Nodes Examined: ??3 ?Number of Lymph Node(s) [...] Spinal stenosis > A Fib. Cardiology at [facility]. S/P successful cardioversion May 2018. DEXA scan [...] positive documented in this encounter Care Teams Construction Teacher Relationship Specialty Start Date End Date Ana Her MD [address] [place] [address] PCP - General 07/29/13 documented as of this encounter
--- OUTSIDE RECORDS SUMMARY | 2024-04-29 11:07 | XMS_ITS | Encounter Summary ---
Author Organization [facility] [place] [address] Care Team Providers Care Preparation Supervisor Name Role Phone Ana Her MD Primary Care Provider [phone] Reason for Visit * Reason Comments Follow Up Surgery Encounter Details Date Type Department Care Team (Late st Contact Info) Description 07/13/2017 1:30 PM EDT Office [place] [phone] Hiral Padgett, WENDY History of breast cancer [...] with image-guided localization ?Lymph Node Sampling: ?? [place] lymph node(s) ?Specimen Laterality: ?? Left Tumor [...] ?DCIS not present in specimen Lymph Nodes ?[place] Lymph Nodes: ?? [place] lymph node biopsy performed ?Number of [place] Nodes Examined: ?3 ?Number of Lymph Node(s) [...] breast documented in this encounter Care Teams Preparation Supervisor Relationship Specialty Start Date End Date Ana Her MD [facility] [address] [place] [address] PCP - General 07/29/13 documented as of this encounter
--- OUTSIDE RECORDS SUMMARY | 2024-04-29 11:07 | XMS_ITS | Encounter Summary ---
[place] [address] Care Team Providers Care Budget Examiner Name Role Phone Ana Her MD Primary Care Provider [phone] Encounter Details Date Type Department Care Team (Late st Contact Info) Description 06/12/2021 Telephone [place] [phone] Chelsie Lauren Social History Tobacco Use Types [...] on filedocumented in this encounter Care Teams Budget Examiner Relationship Specialty Start Date End Date Ana Her MD [address] [place] [address] PCP - General 07/29/13 documented as of this encounter
--- OUTSIDE RECORDS SUMMARY | 2024-04-29 11:07 | XMS_ITS | Encounter Summary ---
Author Organization [facility] [place] [address] Care Team Providers Care Collar Feller Name Role Phone Ana Her MD Primary Care Provider [phone] Encounter Details Date Type Department Care Team (Latest Contact Info) Description 03/30/2017 8:30 AM [facility] Hospital [place] [address] Malika Chen MD [facility] [place] [address] Malignant neoplasm of upper-outer quadrant of left [...] positive documented in this encounter Care Teams Collar Feller Relationship Specialty Start Date End Date Ana Her MD [address] [place] [address] PCP - General 07/29/13 documented as of this encounter
--- OUTSIDE RECORDS SUMMARY | 2024-04-29 11:07 | XMS_ITS | Encounter Summary ---
[place] [address] Care Team Providers Care Hatchery Man Name Role Phone Ana Her MD Primary Care Provider [phone] Encounter Details Date Type Department Care Team (Late st Contact Info) Description 12/17/2021 Telephone [place] [phone] Roma Estrada RN Social History Tobacco Use [...] on filedocumented in this encounter Care Teams Hatchery Man Relationship Specialty Start Date End Date Ana Her MD [address] [place] [address] PCP - General 07/29/13 documented as of this encounter
--- OUTSIDE RECORDS SUMMARY | 2024-04-29 11:07 | XMS_ITS | Encounter Summary ---
[place] [address] Care Team Providers Care Insurance Claim Approver Name Role Phone Ana Her MD Primary Care Provider [phone] Encounter Details Date Type Department Care Team (Late st Contact Info) Description 04/05/2018 Telephone [place] [phone] Adrianna Jones Social History Tobacco Use Types [...] Patient advises she is admitted at [facility] for afib and is pending procedure etc. Patient will call to reschedule once she is discharged home. documented in this encounter Plan of Treatment Not on file documented as of this encounter Visit Diagnoses Not on filedocumented in this encounter Care Teams Insurance Claim Approver Relationship Specialty Start Date End Date Ana Her MD [address] [place] [address] PCP - General 07/29/13 documented as of this encounter
--- OUTSIDE RECORDS SUMMARY | 2024-04-29 11:07 | XMS_ITS | Encounter Summary ---
Author Organization [place] [address] Care Team Providers Care Fur Clipper Name Role Phone Ana Her MD Primary Care Provider [phone] Reason for Visit * Reason Comments Follow-up Encounter Details Date Type Department Care Team (Late st Contact Info) Description 05/31/2019 11:45 AM EST Office Visit Hematology [place] [phone] Ricky Lowry MD Malignant neoplasm of lower-outer [...] ??Excision with image-guided localization ?Lymph Node Sampling: ??[place] lymph node(s) ?Specimen Laterality: ??Left Tumor ?Histologic [...] ??DCIS not present in specimen Lymph Nodes ?[place] Lymph Nodes: [place] lymph node biopsy performed ?Number of [place] Nodes Examined: ??3 ?Number of Lymph Node(s) [...] Spinal stenosis > A Fib. Cardiology at [facility]. S/P successful cardioversion May 2018. DEXA scan [...] positive documented in this encounter Care Teams Fur Clipper Relationship Specialty Start Date End Date Ana Her MD [facility] [address] [facility] [address] [place] [address] PCP - General 07/29/13 documented as of this encounter
--- OUTSIDE RECORDS SUMMARY | 2024-04-29 11:07 | XMS_ITS | Encounter Summary ---
Author Organization [facility] [place] [address] Care Team Providers Care Search Engine Marketing Manager Name Role Phone Ana Her MD Primary Care Provider [phone] Encounter Details Date Type Department Care Team (Latest Contact Info) Description 05/31/2019 10:16 AM EST - 05/31/2019 11:59 PM EST Hospital Encounter Mammography/[place] [phone] Jeanine Lobato APRN [facility] [address] History of breast cancer Discharge Disposition: Home [...] BIRADS CATEGORY 2: Benign findings. * ??[employer] of [...] breast documented in this encounter Care Teams Search Engine Marketing Manager Relationship Specialty Start Date End Date Ana Her MD [address] [place] [address] PCP - General 07/29/13 documented as of this encounter
--- OUTSIDE RECORDS SUMMARY | 2024-04-29 11:07 | XMS_ITS | Encounter Summary ---
Author Organization [facility] [place] [address] Care Team Providers Care Hand Upper And Bottom Lacer Name Role Phone Ana Her MD Primary Care Provider [phone] Reason for Visit * Consultation (Routine) - Closed Specialty Diagnoses / Procedures Referred By Christiano hackett Referred To Contact General Surgery Diagnoses Hiatal hernia Ana Her MD [address] [place] [address] [facility] Gen Surgery [address] [place] [address] Referral ID Status Reason Start Date Expiration Date V isits Requested Visits Authorized [id number] Closed Consult, Test & Treat 09/23/2021 09/23/2022 6 6 Encounter Details Date Type Department Care Team (Latest Contact Info) Description 12/05/2021 3:00 PM EDT Office [place] [address] Laura Will MD [facility] [place] [address] Paraesophageal hernia Social History Tobacco [...] of left breast of female, estrogen receptor [id number], Z17.0 ??? Anemia D64.9 ??? Aortic valve [...] MD at [facility] MAIN OR Cholecystectomy Medications: Current Outpatient [...] gangrene documented in this encounter Care Teams Hand Upper And Bottom Lacer Relationship Specialty Start Date End Date Ana Her MD [address] [place] [address] PCP - General 07/29/13 documented as of this encounter
--- OUTSIDE RECORDS SUMMARY | 2024-04-29 11:07 | XMS_ITS | Encounter Summary ---
Author Organization [facility] [place] [address] Care Team Providers Care Community Outreach Manager Name Role Phone Ana Her MD Primary Care Provider [phone] Reason for Visit * Reason Comments Follow-up Encounter Details Date Type Department Care Team (Late st Contact Info) Description 10/23/2017 11:00 AM EDT Office Visit Hematology [place] [address] Mayra Page APRN [facility] [place] [address] Malignant neoplasm of lower-outer quadrant of left [...] this encounter Progress Notes * Mayra Page, SUSTAINABILITY PROJECT COORDINATOR - 10/23/2017 11:00 AM EDT Digna Olson [...] ??Excision with image-guided localization ?Lymph Node Sampling: ??[place] lymph node(s) ?Specimen Laterality: ??Left Tumor ?Histologic [...] ??DCIS not present in specimen Lymph Nodes ?[place] Lymph Nodes: [place] lymph node biopsy performed ?Number of [place] Nodes Examined: ??3 ?Number of Lymph Node(s) Examined (sentinel and nonsentinel): 3 ?Lymph Node Involvement: None identified Stage (pTNM) ?Pathological Stage: ?? pT1b pN0 PMH: Past Medical History: Diagnosis Date ??? Breast cancer ??? Fracture of tibia 12/2016 left tibial plateau ??? GERD (gastroesophageal reflux disease) ??? H/O non-insulin dependent diabetes mellitus ??? Spinal stenosis Most [facility] There is no history of thromboembolic [...] positive documented in this encounter Care Teams Community Outreach Manager Relationship Specialty Start Date End Date Ana Her MD [address] [place] [address] PCP - General 07/29/13 documented as of this encounter
--- OUTSIDE RECORDS SUMMARY | 2024-04-29 11:07 | XMS_ITS | Encounter Summary ---
[place] [address] Care Team Providers Care Lawn Mower Operator Name Role Phone Ana Her MD Primary Care Provider [phone] Reason for Visit * Reason Comments Schedule Office Case Encounter Details Date Type Department Care Team (Late st Contact Info) Description 04/23/2017 2:00 PM EST Office Visit Hematology [place] [phone] Ricky Lowry MD Malignant neoplasm of lower-outer [...] ??Excision with image-guided localization ?Lymph Node Sampling: ??[place] lymph node(s) ?Specimen Laterality: ??Left Tumor ?Histologic [...] ??DCIS not present in specimen Lymph Nodes ?[place] Lymph Nodes: [place] lymph node biopsy performed ?Number of [place] Nodes Examined: ??3 ?Number of Lymph Node(s) [...] DEXA scan was in this year at [facility]. There is no history of thromboembolic events. [...] positive documented in this encounter Care Teams Lawn Mower Operator Relationship Specialty Start Date End Date Ana Her MD [address] [place] [address] PCP - General 07/29/13 documented as of this encounter
--- OUTSIDE RECORDS SUMMARY | 2024-04-29 11:07 | XMS_ITS | Encounter Summary ---
Author Organization [facility] [place] [address] Care Team Providers Care Intelligence Clerk Name Role Phone Ana Her MD Primary Care Provider [phone] Encounter Details Date Type Department Care Team (Latest Contact Info) Description 01/08/2022 6:11 AM EDT - 01/08/2022 9:40 AM EDT Hospital En[place] [phone] Laura Park MD [facility] [address] Discharge Disposition: Home Social History Tobacco Use [...] a nurse in the Thoracic Clinic at [phone]. After hours or on weekends or holidays please call: [phone] and ask to speak to the Thoracic Physician hauling contractor. Diet: You should follow a clear liquid [...] - 5pm): General Surgery and Bariatric Surgery [phone] Bariatric Surgeons: Drs. Park and John [phone] Lining Presser: [phone] Dietitians: [phone] Outside of regular business hours, including weekends and holidays: Ask for General Surgery resident hauling contractor [phone] Please note, this call will be answered [...] Tablet 03/19/2021 anastrozole (Arimidex) 1 mg TabletIndications:Dianne camupzano neoplasm of lower-outer quadrant of left breast [...] of left breast of female, estrogen receptor bhzmujcyT27.512, Z17.0 ??? Anemia D64.9 ??? Aortic valve [...] 6.43) performed by Malika Chen MD at [facility] MAIN OR ??? PRO INTRAOP SENTINEL LYMPH ID W/DYE INJECTION Left 03/30/2017 ?? INTRAOPERATIVE ID (MAPPING) SENTINEL LYMPH NODE,INCLUDES INJECTION (WRVU 2.5) performed by Malika Chen MD at [facility] MAIN OR ??? PRO MASTECTOMY PARTIAL Left 03/30/2017 ?? MASTECTOMY PARTIAL (WRVU 10.13) performed by Malika Chen MD at [facility] MAIN OR ?? Cholecystectomy ?? [...] Park MD - 01/08/2022 7:48 AM EDT [facility] Operative Note Patient Name: Digna Olson : [id number] MR#: [id number] Case Date: 01/08/2022 Surgeon: Surgeon(s) and Role: [...] Info Order Time SPECIMEN TO PATHOLOGY Gastric Dawes for H Pylori Hiatal hernia Gastric Dawes for H Pylori excision 01/08/2022 8:15 AM [...] 8:14 AM EDT Upper GI Endoscopy, Diagnostic ([id number]) Yes 01/08/2022 7:40 AM EDT Hiatal hernia POCT GLUCOSE Routine 01/08/2022 6:33 AM EDT documented in this encounter Results * Specimen to Pathology (01/08/2022 8:15 AM EDT) AP Specimen 01/08/2022 8:15 AM EDT 01/08/2022 8:15 AM EDT Narrative [facility] - 01/08/2022 8:15 AM EDT Specimen requisition ordered. ??Separate Pathology report to follow Laura Park MD PATHOLOGY/CYTOLOGY ORDERABLES [facility] [place] [address] * Surgical Pathology Report (01/08/2022 8:14 AM EDT) Final Diagnosis [id number] ? Location: [facility]; [facility]; A The signing pathologist has (i) examined the relevant preparation(s) for the specimen(s) and (ii) rendered or confirmed the diagnosis(es). . ?Surgical Pathology DIAGNOSIS A - Gastric ??Antrum for H Pylori, excision: - ??Antrum-type mucosa with reactive gastropathy. Electronically signed by: ?Umang Raymundo MD Verified: ??01/09/2022 16:36 ??Pathologist Performed at: ??-[facility] Dept. of Pathology, [place], [place] SPECIMEN(S) SUBMITTED A - Gastric ??Antrum for H Pylori, excision (1) CLINICAL INFORMATION Hiatal hernia SPECIMEN PROCESSING A - Labeled/Fixativ e: Gastric antrum for H. pylori, formalin. Quantity/Size: Single, 0.3 cm. Tissue Description: Soft, pink tissue. Sections/Proces sing: Submitted en toto ??in 1 cassette labeled A1. ??sns 01/09/2022 4:36 PM EDT [facility] GI Biopsy 01/08/2022 8:14 AM EDT 01/08/2022 8:14 AM EDT Laura Park MD PATHOLOGY/CYTOLOGY ORDERABLES [facility] [place] [address] * POCT Glucose (01/08/2022 6:33 AM EDT) Glucose, POC 120 65 - 199 mg/dL [facility] Comment: Supplemental ranges: <140 mg/dL before meals <180 mg/dL all other times of the day Blood 01/08/2022 6:33 AM EDT 01/08/2022 6:33 AM EDT Laura Park MD POINT [place] [address] documented in this encounter Visit Diagnoses Not on filedocumented in this encounter Active and Recently Administered Medications Care Teams Intelligence Clerk Relationship Specialty Start Date End Date Ana Her MD [address] [place] [address] PCP - General 07/29/13 documented as of this encounter
--- OUTSIDE RECORDS SUMMARY | 2024-04-29 11:07 | XMS_ITS | Encounter Summary ---
Author Organization [facility] [place] [address] Care Team Providers Care Radio Engineering Teacher Name Role Phone Ana Her MD Primary Care Provider [phone] 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 * Diagnostic Test (Routine) - Closed Specialty Diagnoses / Procedures Referred By Contac t Referred To Contact Radiology Diagnoses 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, estrogen receptor positive Osteopenia of neck of femur, unspecified laterality alf current 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 Procedures DXA Central-Spine, Hip, And/Or Whole Body (Generic) Ricky Lowry MD [facility] HEMATOLOGY/[place] [address] [facility] Rad Xray [address] [place] [address] [place] [address] Referral ID Status Reason Start Date Expiration Date V isits Requested Visits Authorized [id number] Closed Specialty Service Requested 05/10/2018 05/10/2019 1 [...] And/Or Whole Body (Generic) Ricky Lowry MD [facility] HEMATOLOGY/[place] [address] [facility] Rad Xray [address] [place] [address] Dr Al[place], [place] [address] Referral ID Status Reason Start Date Expiration Date V isits Requested Visits Authorized [id number] Closed Specialty Service Requested 05/10/2018 05/10/2019 1 1 Encounter Details Date Type Department Care Team (Latest Contact Info) Description 11/09/2018 1:03 PM EDT - 11/09/2018 11:59 PM EDT Hospital Encounter XRay at [address] [place] [address] Ricky Lowry MD Malignant neoplasm of lower-outer [...] BMD measurements and plots are available in [employer] under the imaging tab. Paper copies will be sent to providers without E-DH access. If you have received this report without the data sheet and do not have access to [employer], please contact Radiology Composition Stone Applicator at [phone] Thursday thru Thursday 8am-4pm. Thank you for letting us participate in the care of this patient. For questions regarding this report, please contact the number below. ? Electronically signed by: JULIET Jackson [facility] ([phone]), at 11/10/2018 10:55 AM Narrative 11/10/2018 10:55 [...] BMD measurements and plots are available in [employer]op[employer]under the imaging tab. Paper copies will be sent to providers without [employer] access.If you have received this report without the data sheet and do not haveaccess to [employer], please contact Radiology Composition Stone Applicator at [phone] Thursday thruFriday 8am-4pm. Thank you for letting us participate in the care of this patient. Forquestions regarding this report, please contact the number below. Electronically signed by: Khushi Hughes [facility] [place] ([phone]),at 11/10/2018 10:55 AM Ricky Lowry MD IMG DEXA ORDERABLES documented in this encounter Visit Diagnoses Diagnosis 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, estrogen receptor positive Osteopenia of neck of femur, unspecified laterality alf current 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 Use 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s documented in this encounter Care Teams Radio Engineering Teacher Relationship Specialty Start Date End Date Ana Her MD [facility] [address] [facility] [address] [place] [address] PCP - General 07/29/13 documented as of this encounter
--- OUTSIDE RECORDS SUMMARY | 2024-04-29 11:07 | XMS_ITS | Encounter Summary ---
[place] [address] Care Team Providers Care Funding Coordinator Name Role Phone Ana Her MD Primary Care Provider [phone] Reason for Visit * Reason Comments Follow-up Encounter Details Date Type Department Care Team (Late st Contact Info) Description 06/11/2021 11:00 AM EST Office Visit Hematology [place] [phone] Laura Joaquin PA 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, estrogen receptor positive; senior living current 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 Social History [...] ??Excision with image-guided localization ?Lymph Node Sampling: ??[place] lymph node(s) ?Specimen Laterality: ??Left Tumor ?Histologic [...] ??DCIS not present in specimen Lymph Nodes ?[place] Lymph Nodes: [place] lymph node biopsy performed ?Number of [place] Nodes Examined: ??3 ?Number of Lymph Node(s) [...] [place] [facility] S/P successful cardioversion May 2018. DEXA scan [...] on RA Breasts: deferred (examined by surgery COP today) Neuro: grossly nonfocal. Results: Last DXA [...] Medical Oncology - Breast & GI Cancers [facility] Pager - [phone] No future appointments. documented in this encounter Plan of Treatment Not on file documented as of this encounter Visit Diagnoses Diagnosis 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, estrogen receptor positive senior living current 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 Use 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s documented in this encounter Care Teams Funding Coordinator Relationship Specialty Start Date End Date Ana Her MD [address] [place] [address] PCP - General 07/29/13 documented as of this encounter
--- OUTSIDE RECORDS SUMMARY | 2024-04-29 11:07 | XMS_ITS | Encounter Summary ---
[place] [address] Care Team Providers Care Equine Pharmacology Technician Name Role Phone Ana Her MD Primary Care Provider [phone] 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 * Consultation (Routine) - Closed Specialty Diagnoses / Procedures Referred By Christiano hackett Referred To Contact Plastic Surgery Diagnoses 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, estrogen receptor positive Macromastia Jeanine Lobato APRN [facility] [place] [address] [facility] Plastic [place]urg [address] [address] Referral ID Status Reason Start Date Expiration Date V isits Requested Visits Authorized [id number] Closed Consult, Test & Treat 06/11/2021 06/11/2022 1 1 Encounter Details Date Type Department Care Team (Late st Contact Info) Description 06/11/2021 10:00 AM EST Office [place] [address] Jeanine Lobato APRN [facility] [place] [address] Encounter for follow-up surveillance of [...] this encounter Progress Notes * Jeanine Lobato, CRANE SERVICE TECHNICIAN - 06/11/2021 10:00 AM EST Images from [...] her last visit. Breast cancer history: Alma Dleia presented for screening mammography in February,. This revealed a possible asymmetry in the lower outer left breast. Right breast was normal. Call back views and US confirmed a solid 4mm mass at 5:00 in the left breast. Biopsy was obtained which revealed IDC which is ER/NY positive, Her2 negative. Alma Delia opted against [...] mm Grade Intermediate Margins Negative ER Positive [place] Positive HER-2 Negative OncotypeDx Recurrence Score N/A [...] Family history of ovarian cancer No Ashkenazi Bahai heritage No Known genetic mutation Not tested [...] to speak almost daily. He lives in [place] and is beginning to show early signs [...] situation. Results: Imaging performed (bilateral mammogram) at [facility] today shows no evidence of malignancy, BIRADS [...] free apps for your cell phone from [employer] ([employer]) and [employer] ([employer]). All questions were answered to the patient's satisfaction and they state understanding and agreement with today's treatment plan. They are encouraged to follow up sooner if they develop any new or concerning symptoms. Jeanine Lobato APRN Surgical Oncology P [phone] F [phone] [facility] documented in this encounter [...] breast documented in this encounter Care Teams Equine Pharmacology Technician Relationship Specialty Start Date End Date Ana Her MD [address] [place] [address] PCP - General 07/29/13 documented as of this encounter
--- OUTSIDE RECORDS SUMMARY | 2024-04-29 11:07 | XMS_ITS | Encounter Summary ---
Author Organization [facility] Address [facility] [place] [address] Care Team Providers Care Campus Recruiting Intern Name Role Phone Ana Her MD Primary Care Provider [phone] Reason for Visit * Reason Comments Radiation Consult * Consultation (Routine) - Closed Specialty Diagnoses / Procedures Referred By Christiano hackett Referred To Contact Radiation Oncology Diagnoses Breast cancer Malika Chen MD [facility] [place] [address] St[address] Rad Onc Office [address] [place] [phone] Referral ID Status Reason Start Date Expiration Date Visits Re quested Visits Authorized [id number] Closed 03/17/2017 03/17/2018 1 1 Encounter Details Date Type Department Care Team (Late st Contact Info) Description 04/13/2017 10:00 AM EST Office Visit Radiation Oncology at [address] [address] Faye Velez MD [facility] [address] Malignant neoplasm of left female breast, unspecified [...] cm from nipple. 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 03/03/[address] [...] she [place] [facility] [place]; has been wearing a ziopatch [...] 6.43) performed by Malika Chen MD at [facility] MAIN OR ??? PRO INTRAOP SENTINEL LYMPH ID W/DYE INJECTION Left 03/30/2017 INTRAOPERATIVE ID (MAPPING) SENTINEL LYMPH NODE,INCLUDES INJECTION (WRVU 2.5) performed by Malika Chen MD at [facility] MAIN OR ??? PRO MASTECTOMY, PARTIAL Left 03/30/2017 MASTECTOMY PARTIAL (WRVU 10.13) performed by Malika Chen MD at [facility] MAIN OR Your Medications These changes [...] A: Breast ca, L, mucinous, gr 2, ER+PA+, Her2 neg, s/p lumpectomy & SNB, pT1b [...] treated breast; cough; shortness of breath; tiredness. Late/correction side effects to breast discussed include: Treated [...] breast documented in this encounter Care Teams Campus Recruiting Intern Relationship Specialty Start Date End Date Ana Her MD [address] [place] [address] PCP - General 07/29/13 documented as of this encounter
--- OUTSIDE RECORDS SUMMARY | 2024-04-29 11:07 | XMS_ITS | Encounter Summary ---
[place] [address] Care Team Providers Care Rn Ortho Name Role Phone Ana Her MD Primary Care Provider [phone] Encounter Details Date Type Department Care Team (Late st Contact Info) Description 04/09/2017 Abstract Radiation Oncology at [address] [phone] Maria A Antonio, RN Social History Tobacco [...] on filedocumented in this encounter Care Teams Rn Ortho Relationship Specialty Start Date End Date Ana Her MD [address] [place] [address] PCP - General 07/29/13 documented as of this encounter
--- OUTSIDE RECORDS SUMMARY | 2024-04-29 11:07 | XMS_ITS | Encounter Summary ---
Author Organization [facility] [place] [address] Care Team Providers Care Certified Income Tax Preparer Name Role Phone Ana Her MD Primary Care Provider [phone] 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 * Diagnostic Test (Routine) - Closed Specialty Diagnoses / Procedures Referred By Christiano hackett Referred To Contact Radiology Diagnoses 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, estrogen receptor positive Osteopenia of neck of femur, unspecified laterality [facility] current 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 Procedures DXA Central Spine, Hip, and/or Whole Body (Generic) Ricky Lowry MD [facility] DR HEMATOLOGY/[place] [address] [facility] Rad Xray [address] [place] [address] [place] [address] Referral ID Status Reason Start Date Expiration Date V isits Requested Visits Authorized [id number] Closed Specialty Service Requested 05/22/2020 11/19/2021 1 1 Encounter Details Date Type Department Care Team (Late st Contact Info) Description 05/22/2020 1:15 PM EST Office Visit Hematology and Oncology at [facility] [place] [address] Ricky Lowry MD 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, estrogen receptor positive; Osteopenia of neck of femur, unspecified laterality; 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 Cardiology at [facility]. S/P successful cardioversion May 2018. DEXA scan [...] BMD measurements and plots are available in [employer] under the imaging tab. Paper copies will be sent to providers without [employer] access. If you have received this report without the data sheet and do not have access to [employer], please contact Radiology [facility] at [phone] Thursday thru Thursday 8am-4pm. Thank you for letting us participate in the care of this patient. ??If you are a health care provider and have any questions regarding this report, please contact the number below. ??For patients who have questions please contact the health palliative care coordinator that requested your imaging first. ? Electronically signed by: Nat Epperson MD, [facility] ([phone]), at 11/19/2020 1:09 PM Narrative 11/19/2020 1:09 [...] BMD measurements and plots are available in [employer] the imaging tab. Paper copies will be sent to providers without [employer] access.If you have received this report without the data sheet and do not haveaccess to [employer], please contact Radiology Personal Carer at [phone] Thursday thruFriday 8am-4pm. Thank you for letting us participate in the care of this patient. If youare a health care provider and have any questions regarding this report,please contact the number below. For patients who have questions please contactthe health palliative care coordinator that requested your imaging first. 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
--- OUTSIDE RECORDS SUMMARY | 2024-04-29 11:07 | XMS_ITS | Encounter Summary ---
[place] [address] Care Team Providers Care Corporate Concierge Name Role Phone Ana Her MD Primary Care Provider [phone] Encounter Details Date Type Department Care Team (Late st Contact Info) Description 05/06/2017 Telephone Radiation Oncology at [address] [phone] Maria A Antonio RN Social [...] filedocumented in this encounter Care Teams Corporate Concierge Relationship Specialty Start Date End Date Ana Her MD [address] [facility] [address] [place] [address] PCP - General 07/29/13 documented as of this encounter
--- OUTSIDE RECORDS SUMMARY | 2024-04-29 11:07 | XMS_ITS | Encounter Summary ---
Author Organization Replaced By [facility] Address [facility] [place] [address] Care Team Providers Care Library Page Name Role Phone Ana Her MD Primary Care Provider [phone] Encounter Details Date Type Department Care Team (Late st Contact Info) Description 09/03/2021 Ancillary Procedure Radiology Library at [facility] [place] [address] Laura Will MD [facility] [place] [address] Social History Tobacco Use Types Packs/Day Years [...] CT Chest (09/03/2021 12:00 AM EDT) Narrative [facility] - 11/28/2021 1:22 PM EDT This exam is auto-finalizing. It's purpose is for storage only. Laura Will MD IMG FILM LIBRARY OR DERABLES Performing Organization Address City/State/[facility] Co de Phone Number [place], [place] documented in this encounter Visit Diagnoses Not on filedocumented in this encounter Care Teams Library Page Relationship Specialty Start Date End Date Ana Her MD [address] [facility] 1 [place] [address] PCP - General 07/29/13 documented as of this encounter
--- OUTSIDE RECORDS SUMMARY | 2024-04-29 11:08 | XMS_ITS | Encounter Summary ---
Author Organization [facility] Address [address] [place] [address] Care Team Providers Care Community Planner Name Role Phone Unknown, Provider Primary Care Provider Unava ilable Encounter Details Date Type Department Care Team (Late st Contact Info) Description 01/20/2020 Lab Requisition [facility] Pathology & Laboratory Medicine - [facility] [address] [place] [address] Outr Resulting Lab, Provider Social History Tobacco [...] rt-PCR Result NEGATIVE Negative 01/21/2020 16:10 EDT [facility] Comment: 2019-novel Coronavirus [...] in accordance with CLIA regulations, College [employer] (CAP) guidelines (Jul 21, 2019), and FDA guidance (Jul 02, 2019). This test is only for use under the Food and Drug Administration's Emergency Use Authorization. Swab ENTIRE NASOPHARYNX / Unknown 01/20/2020 10:30 EDT 01/20/2020 15:35 EDT us Provider Outr Resulting Lab MICROBIOLOGY - GENER AL ORDERABLES Final Result Performing Organization Address City/State/[facility] Co de Phone Number [facility] [place], [place] * COVID-19 TESTING (01/20/2020 10:30 EDT) COVID-19 rt-PCR Result NEGATIVE Negative 01/21/2020 17:21 EDT [facility] Comment: 2019-novel Coronavirus [...] in accordance with CLIA regulations, College [employer] (CAP) guidelines (Jul 21, 2019), and FDA guidance (Jul 02, 2019). This test is only for use under the Food and Drug Administration's Emergency Use Authorization. Performing Lab [facility] 01/21/2020 17:21 EDT [facility] Swab 01/20/2020 10:3 0 EDT 01/20/2020 15:35 EDT us Provider Outr Resulting Lab MICROBIOLOGY - GENER AL ORDERABLES Final Result [facility] [address] [place] [address] [facility] [place], [place] documented in this encounter Visit Diagnoses Not on filedocumented in this encounter Care Teams Community Planner Relationship Specialty Start Date End Date Unknown, Provider, PCP - General 01/13/14 documented as of this encounter
--- OUTSIDE RECORDS SUMMARY | 2024-04-29 11:08 | XMS_ITS | Encounter Summary ---
[place] [address] Care Team Providers Care Nib Adjuster Name Role Phone Ana Her MD Primary Care Provider [phone] Encounter Details Date Type Department Care Team (Late st Contact Info) Description 03/30/2017 11:19 AM EST Anesthesia [place] [address] Bridgette Mclaughlin MD Collins, Sarah J, [employer] CRM DEVELOPER [address] [place] [address] Anesthesia Record Procedure Summary Procedure Name Responsible [...] 0815; median cubital vein (antecubital fossa), right; jgmc-dyj-xipadd catheter system; 20 gauge, 1 in length; [...] Bridgette Mclaughlin - 03/30/2017 2:13 PM EST [facility] Department of Anesthesiology Post-procedure Note Patient: Digna Olson Procedure Summary Date Anesthesia Start Anesthesia Stop Room / Location 03/30/17 1119 [id number] [facility] OR 24 / MH MAIN OR Procedure [...] All Anesthesia Providers: Anesthesiologist: Bridgette Mclaughlin MD [employer] DEVELOPER: Laura Koo CRNA Most Recent Vitals: 03/30/17 [...] risks discussed with patient. Plan discussed with [employer] DEVELOPER. [facility] Staff Note documented in this encounter [...] r documented in this encounter Care Teams Nib Adjuster Relationship Specialty Start Date End Date Ana Her MD [facility] [address] [place] [address] PCP - General 07/29/13 documented as of this encounter
--- OUTSIDE RECORDS SUMMARY | 2024-04-29 11:08 | XMS_ITS | Encounter Summary ---
Author Organization [facility] Address [facility] [place] [address] Care Team Providers Care City Surveyor Name Role Phone Ana Her MD Primary Care Provider [phone] Encounter Details Date Type Department Care Team (Latest Contact Info) Description 02/12/2017 - 02/12/2017 11:59 PM EDT Hospital Encounter Radiology Library at [facility] [address] Maryam Yee MD [facility] [address] [place] [address] Screening breast examination Discharge Disposition: Home Social [...] Only Mammo (02/12/2017 12:00 AM EDT) Narrative [facility] - 02/19/2017 1:47 PM EDT This exam is for storage only and is auto-finalizing. Maryam Yee MD IMG FILM LIBRARY O RDERABLES Performing Organization Address City/State/[facility] Co de Phone Number [place], [place] documented in this encounter Visit Diagnoses Diagnosis Screening breast examination Other screening breast examination documented in this encounter Care Teams City Surveyor Relationship Specialty Start Date End Date Ana Her MD [address] [place] [address] PCP - General 07/29/13 documented as of this encounter
--- OUTSIDE RECORDS SUMMARY | 2024-04-29 11:08 | XMS_ITS | Encounter Summary ---
[place] [address] Care Team Providers Care Veneer Jointer Helper Name Role Phone Ana Her MD Primary Care Provider [phone] Encounter Details Date Type Department Care Team (Late st Contact Info) Description 02/27/2017 Telephone [place] [phone] Argentina Sanchez RN Social History Tobacco Use [...] a 71 y.o. 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 Alma Delia sounds positive and has support. She will have someone accompany her to appointments. She appears to be coping well but is anxious to meet with a breast surgeon to determine a treatment plan. Alma Delia have a bone SPECT done 1-2 months ago at [facility] and her doctor there questioned [...] for her review (a link to the [facility] Early Stage Breast Cancer program). The [...] on filedocumented in this encounter Care Teams Veneer Jointer Helper Relationship Specialty Start Date End Date Ana Her MD [address] [place] [address] PCP - General 07/29/13 documented as of this encounter
--- OUTSIDE RECORDS SUMMARY | 2024-04-29 11:08 | XMS_ITS | Encounter Summary ---
Author Organization [facility] [place] [address] Care Team Providers Care Gas Turbine Assembler Name Role Phone Ana Her MD Primary Care Provider [phone] Encounter Details Date Type Department Care Team (Latest Contact Info) Description 02/25/2017 1:32 PM EDT - 02/25/2017 1:35 PM EDT Hospital Encounter [place] [phone] Maryam Yee MD [facility] [place] [address] Abnormal mammogram Discharge Disposition: Home Social History [...] PM EDT 02/25/2017 3:02 PM EDT Narrative [facility] - 02/25/2017 3:02 PM EDT Specimen requisition ordered. ??Separate Pathology report to follow Enzo Burkett MD PATHOLOGY/CYTOLOGY O SHANTAL [facility] [place] [place] [address] documented in this encounter Visit Diagnoses Diagnosis [...] mg documented in this encounter Care Teams Gas Turbine Assembler Relationship Specialty Start Date End Date Ana Her MD [address] [place] [address] PCP - General 07/29/13 documented as of this encounter
--- OUTSIDE RECORDS SUMMARY | 2024-04-29 11:08 | XMS_ITS | Encounter Summary ---
Author Organization [facility] Address [facility] [place] [address] Care Team Providers Care Invoice Checker Name Role Phone Unavailable Primary Care Provider Unavailabl e Encounter Details Date Type Department Care Team (Latest Contact Info) Description 03/19/2006 - 03/19/2006 11:59 PM EST Hospital Encounter Radiology Library at [facility] [place] [address] Jackie Cisneros APRN [facility] [place] [address] Discharge Disposition: Home Social History Tobacco Use [...]
--- OUTSIDE RECORDS SUMMARY | 2024-04-29 11:08 | XMS_ITS | Encounter Summary ---
Author Organization [facility] [place] [address] Care Team Providers Care Head Loft Worker Name Role Phone Ana Her MD Primary Care Provider [phone] Encounter Details Date Type Department Care Team (Late st Contact Info) Description 02/27/2017 Orders [place] [address] Malika Chen MD [facility] [place] [address] Malignant neoplasm of left breast in female, [...] Glucose 139 65 - 199 mg/dL [facility] Comment:Diabetes: >=200 mg/d L plus symptoms Blood Urea Nitrogen 20(H) 8 - 18 mg/dL [facility] Creatinine 0.95 0.70 - 1.20 mg/dL [facility] Sodium 141 135 - 145 mmol/L [facility] Potassium 4.8 3.5 - 5.0 mmol/L [facility] Comment: Please note: ??Patients with WBC >100,000 may have falsely elevated Potassium levels. ??For accurate Potassium quantification in these patients send serum separator tube (gold top) for subsequent determinations. ??Contact the Clinical Chemistry Laboratory if there are any questions. Chloride 101 98 - 107 mmol/L [facility] Carbon Dioxide 26 22 - 31 mmol/L [facility] Anion Gap 14 5 - 15 mmol/L [facility] Calcium 9.3 8.5 - 10.5 mg/dL [facility] Protein, Total 6.9 6.1 - 8.0 gm/dL [facility] Albumin 4.2 3.2 - 5.2 gm/dL [facility] Aspartate Aminotransferase 17 0 - 30 unit/L [facility] Alanine Aminotransferase 16 0 - 30 unit/L [facility] Alkaline Phosphatase 75 40 - 104 unit/L [facility] Bilirubin, Total 0.5 0.2 - 1.3 mg/dL [facility] Est Glomerular Filtration Rate 58(L) >=60 [facility] Comment: The reported eGFR should be multiplied by 1.2 for patients. The MDRD is not an appropriate measure of renal function for patients with body mass extremes or in patients with acute kidney failure. http://OnlineSheetMusic.Shellcatch/DHnkdep http://OnlineSheetMusic.Shellcatch/DHMCnkf Blood specimen (specimen) 03/03/2017 7:50 AM EDT 03/03/2017 8:03 AM EDT Narrative Resulting Agency Comment Spec In Lab Malika Chen MD CHEMISTRY ORDERABLE S [facility] [place] [address] documented in this encounter Visit Diagnoses Diagnosis Malignant neoplasm of left breast in female, estrogen receptor positive, unspecified site of breast documented in this encounter Care Teams Head Loft Worker Relationship Specialty Start Date End Date Ana Her MD [address] [facility] [address] [place] [address] PCP - General 07/29/13 documented as of this encounter
--- OUTSIDE RECORDS SUMMARY | 2024-04-29 11:08 | XMS_ITS | Encounter Summary ---
Author Organization [facility] Address [address] [place] [address] Care Team Providers Care Vocational Coordinator Name Role Phone Unknown, Provider MD Primary Care Provider Unava ilable Encounter Details Date Type Department Care Team (Late st Contact Info) Description 04/06/2022 Lab Requisition [facility] Pathology & Laboratory Medicine - [facility] [address] [place] [address] Outr Resulting Lab, Provider Social History Tobacco [...] Salmonella PCR Negative Negative 04/06/2022 22:54 EST [facility] Shigella/Enteroin vasive E. coli Negative Negative 04/06/2022 22:54 EST [facility] HN LAB CAMPYLOBACTER PCR Negative Negative 04/06/2022 22:54 EST [facility] Shiga Toxin PCR Negative Negative 22:54 EST [facility] Feces SPECIMEN FROM RECTUM / Unknown 04/05/2022 10:41 EST 04/06/2022 18:31 EST us Provider Outr Resulting Lab MICROBIOLOGY - GENER AL ORDERABLES Final Result [facility] [address] [place] [address] documented in this encounter Visit Diagnoses Not on filedocumented in this encounter Care Teams Vocational Coordinator Relationship Specialty Start Date End Date Unknown, Provider, PCP - General 01/13/14 documented as of this encounter
--- OUTSIDE RECORDS SUMMARY | 2024-04-29 11:08 | XMS_ITS | Encounter Summary ---
Author Organization [facility] [place] [address] Care Team Providers Care Report Manager Name Role Phone Ana Her MD Primary Care Provider [phone] Encounter Details Date Type Department Care Team (Latest Contact Info) Description 02/17/2017 12:15 AM EDT - 02/17/2017 11:59 PM EDT Hospital Encounter Radiology Library at [facility] [place] [address] Maryam Yee MD [facility] [place] [address] Screening breast examination Discharge Disposition: Home Social [...] Only Mammo (02/17/2017 12:15 AM EDT) Narrative [facility] - 02/19/2017 2:01 PM EDT This exam is for storage only and is auto-finalizing. Maryam Yee MD IMG FILM LIBRARY O RDERABLES [place], [place] documented in this encounter Visit Diagnoses Diagnosis Screening breast examination Other screening breast examination documented in this encounter Care Teams Report Manager Relationship Specialty Start Date End Date Ana Her MD [address] [place] [address] PCP - General 07/29/13 documented as of this encounter
--- OUTSIDE RECORDS SUMMARY | 2024-04-29 11:08 | XMS_ITS | Encounter Summary ---
Author Organization [facility] Address [address] [place] [address] Care Team Providers Care Gauge And Weigh Machine Adjuster Name Role Phone Unknown, Provider MD Primary Care Provider Unava ilable Encounter Details Date Type Department Care Team (Late st Contact Info) Description 08/12/2021 Lab Requisition [facility] Pathology & Laboratory Medicine - [facility] [address] [place] [address] Outr Resulting Lab, Provider Social History Tobacco [...] Priority Date/Time Associated Diagnosis Comments ZZCOVID-19 TEST [facility] PCR Today 08/12/2021 15:00 EDT COVID-19 TESTING Routine 08/12/2021 15:0 0 EDT documented in this encounter Results * [facility]-19 TEST [facility] (08/12/2021 15:00 EDT) Swab 08/12/2021 15:0 0 EDT 08/13/2021 16:56 EDT us Provider Outr Resulting Lab MICROBIOLOGY - GENER AL ORDERABLES Final Result [facility] [address] [place] [address] * COVID-19 TESTING (08/12/2021 15:00 EDT) COVID-19 rt-PCR Result Negative Negative 08/14/2021 11:53 EDT [facility] Comment: This test has [...] was performed using the palomo SARS-CoV-2 assay ([employer] on the Palomo 6800 System Performing Lab Palomo [address] [facility] 08/14/2021 11:53 EDT [facility] Swab 08/12/2021 15:0 0 EDT 08/13/2021 16:56 EDT us Provider Outr Resulting Lab MICROBIOLOGY - GENER AL ORDERABLES Final Result [facility] [address] [place] [address] documented in this encounter Visit Diagnoses Not on filedocumented in this encounter Care Teams Gauge And Weigh Machine Adjuster Relationship Specialty Start Date End Date Unknown, Provider, PCP - General 01/13/14 documented as of this encounter
--- OUTSIDE RECORDS SUMMARY | 2024-04-29 11:08 | XMS_ITS | Encounter Summary ---
Author Organization [facility] Address [address] [place] [address] Care Team Providers Care Reference Assistant Name Role Phone Unknown, Provider MD Primary Care Provider Unava ilable Encounter Details Date Type Department Care Team (Late st Contact Info) Description 10/26/2022 Lab Requisition [facility] Pathology & Laboratory Medicine - [facility] [address] [place] [address] Outr Resulting Lab, Provider Social History Tobacco [...] Neg and Giardia Antigen Neg 13:48 EDT [facility] Feces SPECIMEN FROM RECTUM / Unknown 10/25/2022 15:00 EDT 10/26/2022 15:25 EDT us Provider Outr Resulting Lab MICROBIOLOGY - GENER AL ORDERABLES Final Result [facility] [address] [place] [address] * FECAL BACTERIAL PATHOGENS BY PCR (10/25/2022 15:00 EDT) Salmonella PCR Negative Negative 10/26/2022 19:17 EDT [facility] Shigella/Enteroin vasive E. coli Negative Negative 10/26/2022 19:17 EDT [facility] HN LAB CAMPYLOBACTER PCR Negative Negative 10/26/2022 19:17 EDT [facility] Shiga Toxin PCR Negative Negative 19:17 EDT [facility] Feces SPECIMEN FROM RECTUM / Unknown 10/25/2022 15:00 EDT 10/26/2022 15:25 EDT us Provider Outr Resulting Lab MICROBIOLOGY - GENER AL ORDERABLES Final Result Performing Organization Address [facility] Co de Phone Number [facility] [address] [place] [address] * OVA/PARASITE EXAM (10/25/2022 15:00 EDT) Parasite No ova and parasites seen. 10/28/2022 15:08 EDT [facility] Feces SPECIMEN FROM RECTUM / Unknown 10/25/2022 15:00 EDT 10/26/2022 15:25 EDT Narrative [facility] - 10/28/2022 15:08 EDT (If Cryptosporidium, Cyclospora, or Microsporidium are suspected, specific tests must be requested.) Single negative specimen does not rule out the possibility of a parasitic infection. us Provider Outr Resulting Lab MICROBIOLOGY - GENER AL ORDERABLES Final Result Performing Organization Address City/[facility]/ZIP Co de Phone Number [facility] [address] [place] [address] documented in this encounter Visit Diagnoses Not on filedocumented in this encounter Care Teams Reference Assistant Relationship Specialty Start Date End Date Unknown, Provider, PCP - General 9/12/14 documented as of this encounter
--- OUTSIDE RECORDS SUMMARY | 2024-04-29 11:08 | XMS_ITS | Encounter Summary ---
Author Organization [facility] [address] Care Team Providers Care Atomizer Assembler Name Role Phone Ana Her MD Primary Care Provider [phone] Encounter Details Date Type Department Care Team (Latest Contact Info) Description 02/25/2017 1:31 PM EDT Hospital En[place] [address] Maryam Yee MD [facility] [place] [address] Abnormal mammogram Discharge Disposition: Home Social History [...] unspecified documented in this encounter Care Teams Atomizer Assembler Relationship Specialty Start Date End Date Ana Her MD [address] [place] [address] PCP - General 07/29/13 documented as of this encounter
--- OUTSIDE RECORDS SUMMARY | 2024-04-29 11:08 | XMS_ITS | Referral Summary ---
Author Organization [facility] Address [address] [place] [address] Care Team Providers Care Auto Tester Name Role Phone Unknown, Provider MD Primary Care Provider Unava ilable Social History Tobacco Use Types Packs/Day Years Used Date Smoking Tobacco: Never Assessed Comments Unknown Sex and Gender Information Value Date Recorded Sex Assigned at Not on file Legal Sex Female 9:32 EDT Gender Identity Not on file Sexual Orientation Not on file Plan of Treatment Not on file Care Teams Auto Tester Relationship Specialty Start Date End Date Unknown, Provider, PCP - General 01/13/14
--- OUTSIDE RECORDS SUMMARY | 2024-04-29 11:08 | XMS_ITS | Encounter Summary ---
Author Organization Replaced By [facility] [place] [address] Care Team Providers Care Healthcare Technician Name Role Phone Ana Her MD Primary Care Provider [phone] Encounter Details Date Type Department Care Team (Latest Contact Info) Description 02/25/2017 1:36 PM EDT - 02/25/2017 2:58 PM EDT Hospital En[place] [phone] Maryam Yee MD [facility] [place] [address] Abnormal mammogram Discharge Disposition: Home Social History [...] unspecified documented in this encounter Care Teams Healthcare Technician Relationship Specialty Start Date End Date Ana Her MD [address] [place] [address] [address] [place] [address] PCP - General 07/29/13 documented as of this encounter
--- OUTSIDE RECORDS SUMMARY | 2024-04-29 11:08 | XMS_ITS | Encounter Summary ---
Author Organization [facility] Address [address] [place] [address] Care Team Providers Care Data Migration Lead Name Role Phone Unknown, Provider Primary Care Provider Unava ilable Encounter Details Date Type Department Care Team (Late st Contact Info) Description 11/19/2023 Lab Requisition [facility] Pathology & Laboratory Medicine - [facility] [address] [place], [place] [address] Outr Resulting Lab, Provider Social History Tobacco [...] 201 - 352 mg/dL 11/20/2023 9:45 EDT [facility] Blood VENOUS BLOOD / Unknown 11/19/2023 6:05 EDT 11/19/2023 17:32 EDT us Provider Outr Resulting Lab CHEMISTRY & BLOOD GA S ORDERABLES Final Result [facility] [address] [place], [place] [address] documented in this encounter Visit Diagnoses Not on filedocumented in this encounter Care Teams Data Migration Lead Relationship Specialty Start Date End Date Unknown, Provider, PCP - General 01/13/14 documented as of this encounter
--- OUTSIDE RECORDS SUMMARY | 2024-04-29 11:08 | XMS_ITS | Encounter Summary ---
Author Organization [facility] [place] [address] Care Team Providers Care Feeder Operator Name Role Phone Ana Her MD Primary Care Provider [phone] Encounter Details Date Type Department Care Team (Late st Contact Info) Description 03/19/2017 Telephone [place] [address] Malika Chen MD [facility] [place] [address] Social History Tobacco Use Types Packs/Day Years [...] no unexpected bleeding. Surgery is scheduled in [facility]. documented in this encounter Plan of Treatment Not on file documented as of this encounter Visit Diagnoses Not on filedocumented in this encounter Care Teams Feeder Operator Relationship Specialty Start Date End Date Ana Her MD [address] [facility] [address] [place] [address] PCP - General 07/29/13 documented as of this encounter
--- OUTSIDE RECORDS SUMMARY | 2024-04-29 11:08 | XMS_ITS | Patient Health Record ---
Author Organization [facility] Address [address] [place] [address] Care Team Providers Care Well Drill Operator Cable Tool Name Role Phone Non Compass, Provider Primary Care Provider [phone] Reason For Referral No Information Medications Medication [...] Medicare [address] [place] [id number] Digna Olson Self - patient is the insured [facility] Medicare Plan [address] [place], [place] [id number] Digna Olson Self - patient is the insured Medical (General) History Medical History History ICD Code Atrial fibrillation Hypertension Hypothyroidism Non insulin-dependent diabetes
--- OUTSIDE RECORDS SUMMARY | 2024-04-29 11:08 | XMS_ITS | Encounter Summary ---
Author Organization [facility] Address [facility] [place] [address] Care Team Providers Care Vice President Lending Name Role Phone Ana Her MD Primary Care Provider [phone] Encounter Details Date Type Department Care Team (Latest Contact Info) Description 02/23/2017 3:50 PM EDT - 02/23/2017 11:59 PM EDT Hospital Encounter Radiology Library at [facility] [place] [phone] Jackie Cisneros APRN [address] [place] [address] Left breast mass Discharge Disposition: Home Social [...] recommended. Please note: The interpretation of the [facility] Breast Imaging Radiologist subspecialist may differ from the original radiologists interpretation. This is usually not due to a deficiency of the original interpreting radiologist, rather due to the greater skill level afforded by sub-specialization in the field and/or reasonable variations in interpretations. If you have a concern regarding the D-H interpretation you may contact the [facility] Breast Math And Sciences Department Chair Office at . I have personally reviewed [...] recommended. Please note: The interpretation of the [facility] BreastImaging Radiologist subspecialist may differ from the original radiologists interpretation. This is usually not due to a deficiency of the original interpreting radiologist, rather due to the greater skill level affordedby sub-specialization in the field and/or reasonable variations ininterpretations. If you have a concern regarding the D-H interpretation you may [facility] Chair Office at . I have personally reviewed the image(s) and the residents interpretationand agree with the findings, ROBERT THOMPSON at 02/24/2017 8:41 AM 8:41 AM Jackie Cisneros [facility] OUTSIDE INTERPRE TATION ORDERABLES documented in this encounter Visit Diagnoses Diagnosis Left breast mass Lump or mass in breast documented in this encounter Care Teams Vice President Lending Relationship Specialty Start Date End Date Ana Her MD [address] [place] [address] PCP - General 07/29/13 documented as of this encounter
--- OUTSIDE RECORDS SUMMARY | 2024-04-29 11:08 | XMS_ITS | Encounter Summary ---
Author Organization [facility] Address [facility] [place] [address] Care Team Providers Care Legal Document Assistant Name Role Phone Ana Her MD Primary Care Provider [phone] Encounter Details Date Type Department Care Team (Latest Contact Info) Description 02/17/2017 - 02/17/2017 12:14 AM EDT Hospital Encounter Radiology Library at [facility] [place] [address] Maryam Yee MD [facility] [place] [address] Screening breast examination Discharge Disposition: Home Social [...] Only Mammo (02/17/2017 12:00 AM EDT) Narrative [facility] - 02/19/2017 1:59 PM EDT This exam is for storage only and is auto-finalizing. Maryam Yee MD IMG FILM LIBRARY O RDERABLES Performing Organization Address City/State/[facility] Co de Phone Number [place], [place] documented in this encounter Visit Diagnoses Diagnosis Screening breast examination Other screening breast examination documented in this encounter Care Teams Legal Document Assistant Relationship Specialty Start Date End Date Ana Her MD [address] [place] [address] PCP - General 07/29/13 documented as of this encounter
--- OUTSIDE RECORDS SUMMARY | 2024-04-29 11:08 | XMS_ITS | Encounter Summary ---
[place] [address] Care Team Providers Care Motor Equipment Commanding Officer Name Role Phone Ana Her MD Primary Care Provider [phone] 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 * Surgical (Routine) - Closed Specialty Diagnoses / Procedures Referred By Christiano hackett Referred To Contact Orthopaedics Diagnoses Lumbar spinal stenosis Michelle Hurtado APRN [facility] [place] [address] [address] [place] [address] [place] [address] Referral ID Status Reason Start Date Expiration Date V isits Requested Visits Authorized [id number] Closed Consult, Test & Treat 09/08/2014 09/08/2015 3 3 Encounter Details Date Type Department Care Team (Late st Contact Info) Description 09/08/2014 Orders [place] [address] Michelle Hurtado AIR CONDITIONING SUPERVISOR [facility] [place] [address] Lumbar spinal stenosis Social History Tobacco Use [...] claudication documented in this encounter Care Teams Motor Equipment Commanding Officer Relationship Specialty Start Date End Date Ana eHr MD [facility] [address] [facility] [address] [place] [address] PCP - General 07/29/13 documented as of this encounter
--- OUTSIDE RECORDS SUMMARY | 2024-04-29 11:08 | XMS_ITS | Encounter Summary ---
Author Organization [facility] Address [facility] [place] [address] Care Team Providers Care Recovery Collector Name Role Phone Unavailable Primary Care Provider Unavailabl e Encounter Details Date Type Department Care Team (Latest Contact Info) Description 12/19/2009 - 12/19/2009 11:59 PM EDT Hospital Encounter Radiology Library [place] [address] Jackie Cisneros APRN [facility] [place] [address] Discharge Disposition: Home Social History Tobacco Use [...] Only Mammo (12/19/2009 12:00 AM EDT) Narrative [facility] - 02/23/2017 3:29 PM EDT This exam is for storage only and is auto-finalizing. Jackie Cisneros APRN IMG FILM LIBRARY ORD ERABLES NADINE Sethi documented in this encounter Visit Diagnoses Not on filedocumented in this encounter
--- OUTSIDE RECORDS SUMMARY | 2024-04-29 11:08 | XMS_ITS | Encounter Summary ---
[place] [address] Care Team Providers Care Mold Capper Name Role Phone Ana Her MD Primary Care Provider [phone] Encounter Details Date Type Department Care Team (Late st Contact Info) Description 07/26/2013 Orders [place] [address] Ana Her MD [facility] [address] [place] [address] Social History Tobacco Use Types Packs/Day Years [...] on filedocumented in this encounter Care Teams Mold Capper Relationship Specialty Start Date End Date Ana Her MD [address] [place] [address] PCP - General 07/29/13 documented as of this encounter
--- OUTSIDE RECORDS SUMMARY | 2024-04-29 11:08 | XMS_ITS | Encounter Summary ---
Author Organization [facility] Address [address] [place] [address] Care Team Providers Care Tool Rental Technician Name Role Phone Unknown, Provider Primary Care Provider Unava ilable Encounter Details Date Type Department Care Team (Late st Contact Info) Description 03/17/2017 Results Only [facility] [phone] Kat Lazaro MD [facility] [address] [place], [place] [id number] Social History Tobacco Use Types Packs/Day Years [...] ? DIGNA KIMBROUGH ? Accession #: ? [id number] ? : ? 1945 (Age: 71) ??F [...] (ASCP) 03/18/2017 8:14 AM End of Report [facility] 03/17/2017 16:1 5 EST 03/17/2017 16:15 EST us Kat Lazaro MD PATHOLOGY ORDERABLES Fin al Result [facility] [address] [place] [address] documented in this encounter Visit Diagnoses Not on filedocumented in this encounter Care Teams Tool Rental Technician Relationship Specialty Start Date End Date Unknown, Provider, PCP - General 01/13/14 documented as of this encounter
--- OUTSIDE RECORDS SUMMARY | 2024-04-29 11:08 | XMS_ITS | Encounter Summary ---
Author Organization [facility] Address [place] [address] Care Team Providers Care Varnish Blender Name Role Phone Unavailable Primary Care Provider Unavailabl e Encounter Details Date Type Department Care Team (Latest Contact Info) Description 01/29/2013 - 01/29/2013 11:59 PM EDT Hospital Encounter Radiology Library at [facility] [place] [address] Jackie Cisneros APRN [facility] [place] [address] Discharge Disposition: Home Social History Tobacco Use [...] Only Mammo (01/29/2013 12:00 AM EDT) Narrative [facility] - 02/23/2017 3:26 PM EDT This exam is for storage only and is auto-finalizing. Jackie Cisneros APRN IMG FILM LIBRARY ORD ERABLES NADINE Sethi documented in this encounter Visit Diagnoses Not on filedocumented in this encounter
--- OUTSIDE RECORDS SUMMARY | 2024-04-29 11:08 | XMS_ITS | Encounter Summary ---
[place] [address] Care Team Providers Care Trauma Program Manager Name Role Phone Ana Her MD Primary Care Provider [phone] Reason for Visit * Reason Comments Establish Care * Consultation (Routine) - Specialty Diagnoses / Procedures Referred By Christiano hackett Referred To Contact Hematology and Oncology Diagnoses Other abnormal and inconclusive findings on diagnostic imaging of breast abnormal mammo, left breast Jackie Cisneros, WENDY [address] [place] [address] [facility] Hem [address] [address] [place] [address] Referral ID Status Reason Start Date Expiration Date V isits Requested Visits Authorized [id number] Consult, Test & Treat [facility] 02/17/2017 05/20/2017 6 6 Encounter Details Date Type Department Care Team (Late st Contact Info) Description 03/03/2017 9:00 AM EDT Office [place] [address] Malika Chen MD [facility] [place] [address] Argentina Sanchez, RN Malignant neoplasm [...] she will meet with medical and radiation ([facility]) oncologists after surgery. 4. Contact phone number for questions or concerns in the immediate post- operative period. 5. Comprehensive Breast Program Binder. 6. Post Breast Surgery Exercises handout created by physical therapists at [facility]. 7. Breast Cancer Treatment Process care map provided and reviewed. 8. Things to Consider...What I Wish I Knew advice from breast cancer patients handout provided. She verbalized understanding of the plan of care and states all her questions were answered. Twentyminutes was spent in education and providing support. Alma Delia has our contact information. 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 She has no known breast masses, no adenopathy, no nipple discharge. Alma Delia had a bone scan in [place] which was read as possible metastasis in the left tibia. Of note- she fractured this area recently. She has recovered well. PMH HNT NIDDM not on meds Spinal stenosis Fractured left tibial plateau December, GERD FH: Maternal first cousin with breast cancer Brother with rectal cancer Sister with PE SH: lives alone. Has good support from sisters who live in [place]. Non smoker. Has a son who lives [...] positive documented in this encounter Care Teams Trauma Program Manager Relationship Specialty Start Date End Date Ana Her MD [address] [place] [address] PCP - General 07/29/13 documented as of this encounter
--- OUTSIDE RECORDS SUMMARY | 2024-04-29 11:08 | XMS_ITS | Encounter Summary ---
Author Organization [facility] [place] [address] Care Team Providers Care Hydro Station Supervisor Name Role Phone Aan Her MD Primary Care Provider [phone] Encounter Details Date Type Department Care Team (Late st Contact Info) Description 08/16/2014 Orders Only Functional Sikhism Program at [facility] [address] [place] [address] Khari Martínez MD Social History Tobacco Use [...] on filedocumented in this encounter Care Teams Hydro Station Supervisor Relationship Specialty Start Date End Date Ana Her MD [facility] [address] [facility] [address] [place] [address] PCP - General 07/29/13 documented as of this encounter
--- OUTSIDE RECORDS SUMMARY | 2024-04-29 11:08 | XMS_ITS | Encounter Summary ---
Author Organization [facility] Address [facility] [place] [address] Care Team Providers Care Grinder Tender Name Role Phone Ana Her MD Primary Care Provider [phone] Encounter Details Date Type Department Care Team (Latest Contact Info) Description 10/28/2016 - 10/28/2016 11:59 PM EDT Hospital Encounter Radiology Library [place] [facility] [place] [address] Ricky Lowry MD Discharge Disposition: Home Social [...] DXA Images (10/28/2016 12:00 AM EDT) Narrative [facility] - 04/24/2017 2:13 PM EST This exam is for storage only and is auto-finalizing. Ricky Lowry MD IMG FILM LIBRARY ORD ERABLES Performing Organization Address City/State/[facility] Co de Phone Number [place], [place] documented in this encounter Visit Diagnoses Not on filedocumented in this encounter Care Teams Grinder Tender Relationship Specialty Start Date End Date Ana Her MD [address] [place] [address] PCP - General 07/29/13 documented as of this encounter
--- OUTSIDE RECORDS SUMMARY | 2024-04-29 11:08 | XMS_ITS | Clinical Summary ---
Author Organization [facility] Address [address] [place] [address] Care Team Providers Care Arts And Crafts Instructor Name Role Phone Unknown, Provider MD Primary [...] COVID-19 Vaccine ( season) 2024 Care Teams Arts And Crafts Instructor Relationship Specialty Start Date End Date Unknown, Provider, PCP - General 01/13/14
--- OUTSIDE RECORDS SUMMARY | 2024-04-29 11:08 | XMS_ITS | Encounter Summary ---
[place] [address] Care Team Providers Care Ice House Supervisor Name Role Phone Ana Her MD Primary Care Provider [phone] Reason for Visit * Reason Comments Low Back Pain Encounter Details Date Type Department Care Team (Late st Contact Info) Description 08/30/2014 8:35 AM EDT Office Visit [place] [phone] Michelle Hurtado APRN [facility] [place] [address] Neurogenic claudication due to lumbar spinal stenosis [...] this encounter Progress Notes * Michelle Hurtado, DISTRICT SALES REPRESENTATIVE - 08/30/2014 9:37 AM EDT CHIEF COMPLAINT: [...] activity. 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 MEDICATIONS & ALLERGIES: [...] care of this patient. Michelle Hurtado MS, DISTRICT SALES REPRESENTATIVE, AUTOMATIC WASHER MECHANIC-C [facility] documented in this encounter Plan of Treatment Not on file documented as of this encounter Visit Diagnoses Diagnosis Neurogenic claudication due to lumbar spinal stenosis Spinal stenosis, lumbar region, with neurogenic claudication documented in this encounter Care Teams Ice House Supervisor Relationship Specialty Start Date End Date Ana Her MD [address] [place] [address] PCP - General 07/29/13 documented as of this encounter
--- OUTSIDE RECORDS SUMMARY | 2024-04-29 11:08 | XMS_ITS | Encounter Summary ---
Author Organization [facility] Address [facility] [place] [address] Care Team Providers Care Pad Hand Name Role Phone Unavailable Primary Care Provider Unavailabl e Encounter Details Date Type Department Care Team (Latest Contact Info) Description 12/08/2008 - 12/08/2008 11:59 PM EDT Hospital Encounter Radiology Library at [facility] [place] [address] Jackie Cisneros APRN [facility] [place] [address] Discharge Disposition: Home Social History Tobacco Use [...] Only Mammo (12/08/2008 12:00 AM EDT) Narrative [facility] - 02/23/2017 3:30 PM EDT This exam is for storage only and is auto-finalizing. Jackie Cisneros APRN IMG FILM LIBRARY ORD ERABLES NADINE Sethi documented in this encounter Visit Diagnoses Not on filedocumented in this encounter
--- OUTSIDE RECORDS SUMMARY | 2024-04-29 11:08 | XMS_ITS | Encounter Summary ---
Author Organization [facility] [place] [address] Care Team Providers Care Amr Physician Name Role Phone Ana Her MD Primary Care Provider [phone] Encounter Details Date Type Department Care Team (Late st Contact Info) Description 03/04/2017 Orders [place] [address] Malika Chen MD [facility] [place] [address] Malignant neoplasm of upper-outer quadrant of left [...] MD IMG MAMMO ORDERABLE S * Mammo [place] Node Injection (03/30/2017 9:01 AM EST) Anatomical [...] positive documented in this encounter Care Teams Amr Physician Relationship Specialty Start Date End Date Ana Her MD [address] [facility] [address] [place] [address] PCP - General 07/29/13 documented as of this encounter
--- OUTSIDE RECORDS SUMMARY | 2024-04-29 11:08 | XMS_ITS | Encounter Summary ---
[place] [address] Care Team Providers Care Automobile Service Writer Name Role Phone Ana Her MD Primary Care Provider [phone] Encounter Details Date Type Department Care Team (Latest Contact Info) Description 03/30/2017 7:27 AM EST - 03/30/2017 1:37 PM EST Hospital Encounter [place] [phone] Brant Chen MD [facility] [place] [address] Discharge Disposition: Home Social History Tobacco Use [...] shower 24 hours Activity as tolerated Call [phone] with any questions Do not soak incision [...] was obtained which revealed IDC which is ER/HI+, her2-. She has no known breast masses, no adenopathy, no nipple discharge. ?? Alma Delia had a bone scan in [place] which was read as possible metastasis in the left tibia. Of note- she fractured this area recently. She has recovered well. ?? PMH HNT NIDDM not on meds Spinal stenosis Fractured left tibial plateau December, GERD ?? FH: Maternal first cousin with breast cancer Brother with rectal cancer Sister with PE ? SH: lives alone. Has good support from sisters who live in [place]. Non smoker. Has a son who lives [...] 71 yo female with radiographic stage I ER/HI+, HER2- IDC of the left breast. No [...] Chen MD - 03/30/2017 12:27 PM EST [facility] Operative Note Patient Name: Digna Olson : [id number] MR#: [id number] Case Date: 03/30/2017 Surgeon: Surgeon(s) and Role: [...] [place] [address]. Remaining count within the axilla was 1982. [...] EST 03/30/2017 12:09 PM EST Narrative [facility] - 03/30/2017 12:09 PM EST Specimen requisition ordered. ??Separate Pathology report to follow Brant Chen MD PATHOLOGY/CYTOLOGY ORDERABLES [facility] [place] [address] * Specimen to Pathology (surgical or derm) (03/30/2017 12:08 PM EST) AP Specimen 03/30/2017 12:0 8 PM EST 03/30/2017 12:08 PM EST Narrative [facility] - 03/30/2017 12:08 PM EST Specimen requisition ordered. ??Separate Pathology report to follow Brant Chen MD PATHOLOGY/CYTOLOGY ORDERABLES Performing Organization Address [facility] [place] [address] * Specimen to Pathology (surgical or derm) (03/30/2017 12:00 PM EST) AP Specimen 03/30/2017 12:0 0 PM EST 03/30/2017 12:00 PM EST Narrative [facility] - 03/30/2017 12:00 PM EST Specimen requisition ordered. ??Separate Pathology report to follow Brant Chen MD PATHOLOGY/CYTOLOGY ORDERABLES Performing Organization Address [facility] Co de Phone Number [place] [phone] * Specimen to Pathology (surgical or derm) (03/30/2017 11:51 AM EST) AP Specimen 03/30/2017 11:5 1 AM EST 03/30/2017 11:51 AM EST Narrative [facility] - 03/30/2017 11:51 AM EST Specimen requisition ordered. ??Separate Pathology report to follow Brant Chen MD PATHOLOGY/CYTOLOGY ORDERABLES Performing Organization Address [facility] [place] [address] * Surgical Pathology Report (03/30/2017 11:50 AM EST) Final Diagnosis [id number] ? Location: [facility]; [facility]; A The signing pathologist has (i) examined the relevant preparation(s) for the specimen(s) and (ii) rendered or confirmed the diagnosis(es). . ?Surgical Pathology DIAGNOSIS A,B - See Synoptic C - Left breast, Deep/lateral margin re-excision - ?Benign fatty breast tissue. D - Left breast, Superficial margin re-excision - ?Benign fatty breast tissue. See Note Note - [place] ink (indicating additional cranial margin) is also present on this superficial margin re-excision. ---- Specimen Parts: ?? A - Left axilliary sentinel node B - Left breast partial mastectomy Specimen ? Procedure: ??Excision with image-guided localization ? Lymph Node Sampling: ?? [place] lymph node(s) ? Specimen Laterality: ?? Left [...] not present in specimen Lymph Nodes ? [place] Lymph Nodes: ?? [place] lymph node biopsy performed ? Number of [place] Nodes Examined: ?3 ? Number of Lymph [...] Chávez DO Verified: ??04/01/2017 ?Pathologist Performed at: ??-[facility] Dept. of Pathology, [place], [place] CLINICAL INFORMATION Specimen Submitted: A - [...] and there are ??no close margins. per [facility] Radiology . Specimen Description: According to the established protocol the ink designations are red (medial), yellow (lateral), orange (cranial), green (caudal), black (deep) and blue (superficial). Tissue Sections: The specimen is serially sectioned perpendicular to the long axis from lateral to medial into X slices, each averaging 0.45 cm in thickness. LESION Description: Biopsy site. Size: 0.8 x 0.4 x 0.4 cm. Color: [place] and yellow. Consistency: Soft. Location: Slices III and IV. Nearest Margin: 0.6 cm to the cranial margin. Other Margins: 0.8 cm to the deep margin, 1.0 cm to the superficial margin, ? > 2 cm from all other margins. OTHER Parenchyma: Predominately fatty with scant fibrous tissue. Wire/Clip: Biopsy marker clip identified within slice IV. SECTIONS/PROCESSI NG: (1) treasury representative slice I, lateral margin; (2) slice III, lesion to cranial margin; (3-5) remainder of slice III; (6) slice IV, lesion to cranial margin (clip); (7-8) remainder of slice IV; (9) treasury representative slice V; (10) treasury representative slice X, medial margin. (R10) Ischemic [...] (T3) ??sns 04/01/2017 9:38 AM EST [facility] BREAST STRUCTURE / Unknown 03/30/2017 11:50 AM EST 03/30/2017 11:50 AM EST BREAST STRUCTURE / Unknown 03/30/2017 11:50 AM EST 03/30/2017 11:50 AM EST BREAST STRUCTURE / Unknown 03/30/2017 11:50 AM EST 03/30/2017 11:50 AM EST BREAST STRUCTURE / Unknown 03/30/2017 11:50 AM EST 03/30/2017 11:50 AM EST Brant Chen MD PATHOLOGY/CYTOLOGY ORDERABLES [facility] [place] [address] * Mammo Direct Digital Left (03/30/2017 9:15 [...] Routine documented in this encounter Care Teams Automobile Service Writer Relationship Specialty Start Date End Date Ana Her MD [address] [place] [address] PCP - General 07/29/13 documented as of this encounter
--- OUTSIDE RECORDS SUMMARY | 2024-04-29 11:08 | XMS_ITS | Encounter Summary ---
[place] [address] Care Team Providers Care Supervisor Extruding Department Name Role Phone Ana Her MD Primary Care Provider [phone] Encounter Details Date Type Department Care Team (Late st Contact Info) Description 03/18/2017 Telephone [place] [phone] Bryanna Marsh RN Social History Tobacco Use [...] notes she had a colonoscopy done at [facility] and developed atrial fibrillation; she has been started on blood thinners. She was just discharged from the [facility] hospital, and called us to let [...] give Digna a call her number is [phone]. The below is from Dr. Chen visit with Digna. Assessment and Plan: ?? 71 yo female with radiographic stage I ER/NE+, HER2- IDC of the left breast. No [...] filedocumented in this encounter Care Teams Supervisor Extruding Department Relationship Specialty Start Date End Date Ana Her MD [address] [place] [address] PCP - General 07/29/13 documented as of this encounter
--- OUTSIDE RECORDS SUMMARY | 2024-04-29 11:08 | XMS_ITS | Encounter Summary ---
[place] [address] Care Team Providers Care Cellar Worker Name Role Phone Ana Her MD Primary Care Provider [phone] Encounter Details Date Type Department Care Team (Latest Contact Info) Description 03/03/2017 7:55 AM EDT Laboratory Appointment Lab [address] [place] [address] Malignant neoplasm of left breast in female, [...] AM EDT) Neutrophil % 72.8 % [facility] Neutrophil Absolute 6.45(H) 1.70 - 6.10 x10(3)/mc L [facility] Lymph % 14.4 % [facility] Lymphocytes Abs 1.3 0.9 - 3.2 x10(3)/ L [facility] Monocyte % 5.6 % [facility] Monocyte Abs 0.5 0.3 - 0.9 x10(3)/ L [facility] Eos % 6.1 % [facility] Eosinophils Abs 0.5(H) 0.0 - 0.4 x10(3)/ L [facility] Basophil % 0.6 % [facility] Baso Absolute 0.0 0.0 - 0.1 x10(3)/ L [facility] Immature Gran % 0.50 % [facility] Comment: Immature granulocytes(IG's)percentage and absolute count will include metamyelocytes, myelocytes, and promyelocytes. Blood smears from CBCs yielding IG's will be scanned manually for concordance. If this scan disagrees with the automated IG or if promyelocytes are noted, a manual differential will be performed. Immature Gran Absolute 0.04 0.00 - 0.04 x10(3)/mc L [facility] Blood specimen (specimen) 03/03/2017 7:50 AM EDT 03/03/2017 8:03 AM EDT Narrative Resulting Agency Comment Spec In Lab Malika Chen MD HEMATOLOGY ORDERABL ES [facility] [place] [address] * (ABNORMAL) Hemogram (03/03/2017 7:50 AM EDT) White Blood Cell 8.8 4.0 - 9.5 x10(3)/mc L [facility] Red Blood Cell 3.80(L) 4.00 - 5.21 x10(6)/mc L [facility] Hemoglobin 12.3 11.7 - 15.5 gm/dL [facility] Hematocrit 36.3 35.7 - 45.8 % [facility] Mean Cell Volume 95.5(H) 82.6 - 94.4 fL [facility] Mean Cell Hemoglobin 32.4(H) 27.1 - 32.0 pg [facility] Mean Cell Hemoglobin Concentration 33.9 31.7 - 35.0 gm/dL [facility] Platelet 156 145 - 357 x10(3)/ L [facility] RDW Standard Deviation 48.3(H) 37.0 - 46.0 [facility] RDW coefficient of variation 13.9 11.5 - 14.1 % [facility] Mean Platelet Volume 11.9 7.6 - 12.9 fL [facility] NRBC% auto 0.0 % [facility] NRBC Absolute 0.000 0.000 - 0.000 x10(3)/ L [facility] Blood specimen (specimen) 03/03/2017 7:50 AM EDT 03/03/2017 8:03 AM EDT Narrative Resulting Agency Comment Spec In Lab Malika Chen MD HEMATOLOGY ORDERABL ES [facility] [place] [address] * (ABNORMAL) Comprehensive metabolic panel (non-fasting) (03/03/2017 7:50 AM EDT) Glucose 139 65 - 199 mg/dL [facility] Comment:Diabetes: >=200 mg/d L plus symptoms Blood Urea Nitrogen 20(H) 8 - 18 mg/dL [facility] Creatinine 0.95 0.70 - 1.20 mg/dL [facility] Sodium 141 135 - 145 mmol/L [facility] Potassium 4.8 3.5 - 5.0 mmol/L [facility] Comment: Please note: ??Patients with WBC >100,000 may have falsely elevated Potassium levels. ??For accurate Potassium quantification in these patients send serum separator tube (gold top) for subsequent determinations. ??Contact the Clinical Chemistry Laboratory if there are any questions. Chloride 101 98 - 107 mmol/L [facility] Carbon Dioxide 26 22 - 31 mmol/L [facility] Anion Gap 14 5 - 15 mmol/L [facility] Calcium 9.3 8.5 - 10.5 mg/dL [facility] Protein, Total 6.9 6.1 - 8.0 gm/dL [facility] Albumin 4.2 3.2 - 5.2 gm/dL [facility] Aspartate Aminotransferase 17 0 - 30 unit/L [facility] Alanine Aminotransferase 16 0 - 30 unit/L [facility] Alkaline Phosphatase 75 40 - 104 unit/L [facility] Bilirubin, Total 0.5 0.2 - 1.3 mg/dL [facility] Est Glomerular Filtration Rate 58(L) >=60 [facility] Comment: The reported eGFR should be multiplied by 1.2 for patients. The MDRD is not an appropriate measure of renal function for patients with body mass extremes or in patients with acute kidney failure. http://The Daily Hundred.Crowdmark/DHnkdep http://The Daily Hundred.com/DHMCnkf Blood specimen (specimen) 03/03/2017 7:50 AM EDT 03/03/2017 8:03 AM EDT Narrative Resulting Agency Comment Spec In Lab Malika Chen MD [place] [address] documented in this encounter Visit Diagnoses Diagnosis Malignant neoplasm of left breast in female, estrogen receptor positive, unspecified site of breast documented in this encounter Care Teams Cellar Worker Relationship Specialty Start Date End Date Ana Her MD [address] [place] [address] PCP - General 07/29/13 documented as of this encounter
--- OUTSIDE RECORDS SUMMARY | 2024-04-29 11:08 | XMS_ITS | Encounter Summary ---
Author Organization [place] [address] Care Team Providers Care Flatwork Presser Name Role Phone Ana Her MD Primary Care Provider [phone] Encounter Details Date Type Department Care Team (Late st Contact Info) Description 03/03/2017 [place] [address] January Ward MSW Social History Tobacco Use Types Packs/Day Years Used Date Smoking Tobacco: Never Smokeless Tobacco: Never Sex and Gender Information Value Date Recorded Sex Assigned at Not on file Gender Identity Not on file Sexual Orientation Not on file documented as of this encounter Progress Notes * January Ward MSW - 03/03/2017 12:56 PM EDT OFFICE OF CARE MANAGEMENT/CONTINUING REGIONAL TRANSFER LIAISON Reason for referral: Digna Olson is a 71 year old, female who was seen in the multidisciplinarybreast care clinic for a surgical consult as she was recently diagnosed with ER/GA+, left breast, invasive mucinous carcinoma. After meeting with Dr. hCen, pt has decided to have a lumpectomy/SLNB. [facility] pt needs [facility] met with pt to complete a psychosocial assessment and to explain my role in the breast program. Pt was encouraged to contact me if she has any questions or concerns. Living arrangements/social supports: Pt lives alone in [place], [place]. She has support from her family and is accompanied to today's appt by her sisters who live in [place]. Employment/Insurance/Finances: Pt is retired and receives Social Security Mcfp Benefits. Pt has Medicare A and B [...] Antonia Oliva [facility]. Plan: [facility] will continue to follow pt to assess and assist with their psychosocial needs. DELONTE Moreno [facility]/[place] [phone] Pager #[phone] documented in this encounter Plan of Treatment Not on file documented as of this encounter Visit Diagnoses Not on filedocumented in this encounter Care Teams Flatwork Presser Relationship Specialty Start Date End Date Ana Her MD [address] [place] [address] PCP - General 07/29/13 documented as of this encounter
--- OUTSIDE RECORDS SUMMARY | 2024-04-29 11:08 | XMS_ITS | Encounter Summary ---
Author Organization [facility] Address [address] [facility] [place] [address] Care Team Providers Care Lamp Cleaner Street Light Name Role Phone Ana Her MD Primary Care Provider [phone] Encounter Details Date Type Department Care Team (Late st Contact Info) Description 09/13/2015 Interpretation Only Radiology [address] [facility] [place] [address] Unknown None Social History Tobacco Use Types [...] 6:56 AM EDT APD Historical Result Principal Master Barber: ??MAE ??ESCHBACH IMAGE-INTENSIFIER FILMS: INDICATION: ??Right L4 foraminotomy. FINDINGS: A total of 5.8 seconds of fluoro time was utilized by Geraldine Claros MD. ??Estimated dose is 5.96 mGy. ??Two image-intensifier films record the event. ??They show the lumbosacral junction in the lateral projection with a surgical instrument indicating the level of L4. ??No Radiologist was present for this exam. Mae Shelley DO TOBIN/mn [id number] Procedure Note Unknown - 11/01/2018 APD Historical Result Principal Master Barber: MAE SHELLEY IMAGE-INTENSIFIER FILMS: INDICATION: Right L4 foraminotomy. FINDINGS: A total of 5.8 seconds of fluoro time was utilized by Geraldine Claros MD. Estimated dose is 5.96 mGy. Two image-intensifier films record the event. They show thelumbosacral junction in the lateral projection with a surgical instrument indicating the level of L4.No Radiologist was present for this exam. Mae Shelley DO TOBIN/mn [id number] Unknown IMG FLUORO ORDERABLE S documented in this encounter Visit Diagnoses Not on filedocumented in this encounter Care Teams Lamp Cleaner Street Light Relationship Specialty Start Date End Date Ana Her MD [address] [place] [address] PCP - General 07/29/13 documented as of this encounter
--- OUTSIDE RECORDS SUMMARY | 2024-04-29 11:08 | XMS_ITS | Encounter Summary ---
[place] [address] Care Team Providers Care Batt Machine Operator Name Role Phone Ana Her MD Primary Care Provider [phone] Reason for Visit * Reason Comments Low Back Pain Bilateral Hip Pain when standing or wal jaquelin Encounter Details Date Type Department Care Team (Late st Contact Info) Description 09/12/2014 11:20 AM EDT Office Visit [place] [phone] Kris Benoit MD Neurogenic claudication due to [...] pain free. Lumbar MRI from 08/16/2014 from [facility] is notable for multilevel degenerative changes L2-L3, L3-L4, L4-L5, L5-S1. At L2-L3, she has [id number] spinal stenosis, but she has no leg [...] claudication documented in this encounter Care Teams Batt Machine Operator Relationship Specialty Start Date End Date Ana Her MD [address] [place] [address] PCP - General 07/29/13 documented as of this encounter
--- OUTSIDE RECORDS SUMMARY | 2024-04-29 11:08 | XMS_ITS | Encounter Summary ---
[place] [address] Care Team Providers Care Veterans Contact Representative Name Role Phone Ana Her MD Primary Care Provider [phone] Reason for Visit * Reason Onset Date Comments Referral 07/29/2013 Encounter Details Date Type Department Care Team (Late st Contact Info) Description 07/29/2013 [place] [phone] Sophia Palacios Referral Social History Tobacco Use [...] on filedocumented in this encounter Care Teams Veterans Contact Representative Relationship Specialty Start Date End Date Ana Her MD [address] [facility] [address] [place] [address] PCP - General 07/29/13 documented as of this encounter
--- OUTSIDE RECORDS SUMMARY | 2024-04-29 11:08 | XMS_ITS | Encounter Summary ---
Author Organization [facility] [place] [address] Care Team Providers Care Director Diversity Name Role Phone Ana Her MD Primary Care Provider [phone] Encounter Details Date Type Department Care Team (Late st Contact Info) Description 03/30/2017 9:30 AM EST - 03/30/2017 11:28 AM EST [place] [phone] Brant Chen MD [facility] [place] [address] MASTECTOMY PARTIAL (WRVU 10.13) Social History Tobacco [...] shower 24 hours Activity as tolerated Call [phone] with any questions Do not soak incision [...] was obtained which revealed IDC which is ER/GA+, her2-. She has no known breast masses, no adenopathy, no nipple discharge. ?? Alma Delia had a bone scan in [place] which was read as possible metastasis in the left tibia. Of note- she fractured this area recently. She has recovered well. ?? PMH HNT NIDDM not on meds Spinal stenosis Fractured left tibial plateau [place], 2017 GERD ?? FH: Maternal first cousin with breast cancer Brother with rectal cancer Sister with PE ? SH: lives alone. Has good support from sisters who live in [place]. Non smoker. Has a son who lives [...] 71 yo female with radiographic stage I ER/GA+, HER2- IDC of the left breast. No [...] Chen MD - 03/30/2017 12:27 PM EST [facility] Operative Note Patient Name: Digna Olson : [id number] MR#: [id number] Case Date: 03/30/2017 Surgeon: Surgeon(s) and Role: [...] [place] [address]. Remaining count within the axilla was 1982. [...] PM EST 03/30/2017 12:09 PM EST Narrative [facility] - 03/30/2017 12:09 PM EST Specimen requisition ordered. ??Separate Pathology report to follow Brant Chen MD PATHOLOGY/CYTOLOGY ORDERABLES [facility] [place] [address] * Specimen to Pathology (surgical or derm) (03/30/2017 12:08 PM EST) AP Specimen 03/30/2017 12:0 8 PM EST 03/30/2017 12:08 PM EST Narrative [facility] - 03/30/2017 12:08 PM EST Specimen requisition ordered. ??Separate Pathology report to follow Brant Chen MD PATHOLOGY/CYTOLOGY ORDERABLES Performing Organization Address [facility] Co de Phone Number [facility] [place] [address] * Specimen to Pathology (surgical or derm) (03/30/2017 12:00 PM EST) AP Specimen 03/30/2017 12:0 0 PM EST 03/30/2017 12:00 PM EST Narrative [facility] - 03/30/2017 12:00 PM EST Specimen requisition ordered. ??Separate Pathology report to follow Brant Chen MD PATHOLOGY/CYTOLOGY ORDERABLES Performing Organization Address [facility] [place] [address] * Specimen to Pathology (surgical or derm) (03/30/2017 11:51 AM EST) AP Specimen 03/30/2017 11:5 1 AM EST 03/30/2017 11:51 AM EST Narrative [facility] - 03/30/2017 11:51 AM EST Specimen requisition ordered. ??Separate Pathology report to follow Brant Chen MD PATHOLOGY/CYTOLOGY ORDERABLES Performing Organization Address [facility] Co de Phone Number [facility] [place] [phone] * Surgical Pathology Report (03/30/2017 11:50 AM EST) Final Diagnosis [id number] ? Location: [facility]; [facility]; A The signing pathologist has (i) examined the relevant preparation(s) for the specimen(s) and (ii) rendered or confirmed the diagnosis(es). . ?Surgical Pathology DIAGNOSIS A,B - See Synoptic C - Left breast, Deep/lateral margin re-excision - ?Benign fatty breast tissue. D - Left breast, Superficial margin re-excision - ?Benign fatty breast tissue. See Note Note - New Ringgold ink (indicating additional cranial margin) is also present on this superficial margin re-excision. ---- Specimen Parts: ?? A - Left axilliary sentinel node B - Left breast partial mastectomy Specimen ? Procedure: ??Excision with image-guided localization ? Lymph Node Sampling: ?? Forbes lymph node(s) ? Specimen Laterality: ?? Left [...] not present in specimen Lymph Nodes ? Forbes Lymph Nodes: ?? Forbes lymph node biopsy performed ? Number of Forbes Nodes Examined: ?3 ? Number of Lymph [...] Chávez DO Verified: ??04/01/2017 ?Pathologist Performed at: ??-[facility] Dept. of Pathology, [place], [place] CLINICAL INFORMATION Specimen Submitted: A - [...] and there are ??no close margins. per [facility] Radiology . Specimen Description: According to [...] 0.8 x 0.4 x 0.4 cm. Color: Leedey and yellow. Consistency: Soft. Location: Slices III and IV. Nearest Margin: 0.6 cm to the cranial margin. Other Margins: 0.8 cm to the deep margin, 1.0 cm to the superficial margin, ? > 2 cm from all other margins. OTHER Parenchyma: Predominately fatty with scant fibrous tissue. Wire/Clip: Biopsy marker clip identified within slice IV. SECTIONS/PROCESSI NG: (1) wireless sales representative slice I, lateral margin; (2) slice III, lesion to cranial margin; (3-5) remainder of slice III; (6) slice IV, lesion to cranial margin (clip); (7-8) remainder of slice IV; (9) wireless sales representative slice V; (10) wireless sales representative slice X, medial margin. (R10) [...] sectioned. (T3) ??sns 04/01/2017 9:38 AM EST [facility] BREAST STRUCTURE / Unknown 03/30/2017 11:50 AM EST 03/30/2017 11:50 AM EST BREAST STRUCTURE / Unknown 03/30/2017 11:50 AM EST 03/30/2017 11:50 AM EST BREAST STRUCTURE / Unknown 03/30/2017 11:50 AM EST 03/30/2017 11:50 AM EST BREAST STRUCTURE / Unknown 03/30/2017 11:50 AM EST 03/30/2017 11:50 AM EST Brant Chen MD PATHOLOGY/CYTOLOGY ORDERABLES [facility] [place] [address] * Mammo Direct Digital Left (03/30/2017 9:15 [...] Routine documented in this encounter Care Teams Director Diversity Relationship Specialty Start Date End Date Ana Her MD [address] [place] [address] PCP - General 07/29/13 documented as of this encounter
--- OUTSIDE RECORDS SUMMARY | 2024-04-29 11:08 | XMS_ITS | Encounter Summary ---
Author Organization [facility] Address [facility] [place] [address] Care Team Providers Care Can Reforming Machine Operator Name Role Phone Unavailable Primary Care Provider Unavailabl e Encounter Details Date Type Department Care Team (Latest Contact Info) Description 11/12/2007 - 11/12/2007 11:59 PM EDT Hospital Encounter Radiology Library at [facility] [place] [place] [address] Jackie Cisneros APRN [facility] [place] [address] [place] [address] Discharge Disposition: Home Social History Tobacco Use [...] Only Mammo (11/12/2007 12:00 AM EDT) Narrative [facility] - 02/23/2017 3:31 PM EDT This exam is for storage only and is auto-finalizing. Jackie Cisneros APRN IMG FILM LIBRARY ORD ERABLES NADINE Sethi documented in this encounter Visit Diagnoses Not on filedocumented in this encounter
--- OUTSIDE RECORDS SUMMARY | 2024-04-29 11:08 | XMS_ITS | Encounter Summary ---
Author Organization [facility] Address [facility] [place] [address] Care Team Providers Care Inspector Watch Train Name Role Phone Ana Her MD Primary Care Provider [phone] Encounter Details Date Type Department Care Team (Latest Contact Info) Description 04/24/2014 - 04/24/2014 11:59 PM EST Hospital Encounter Radiology Library at [facility] [place] [address] Maryam Yee MD [facility] [place] [address] Screening breast examination Discharge Disposition: Home Social [...] Only Mammo (04/24/2014 12:00 AM EST) Narrative [facility] - 02/19/2017 1:46 PM EDT This exam is for storage only and is auto-finalizing. Maryam Yee MD IMG FILM LIBRARY O RDERABLES [place], [place] documented in this encounter Visit Diagnoses Diagnosis Screening breast examination Other screening breast examination documented in this encounter Care Teams Inspector Watch Train Relationship Specialty Start Date End Date Ana Her MD [address] [place] [address] PCP - General 07/29/13 documented as of this encounter
--- OUTSIDE RECORDS SUMMARY | 2024-04-29 11:08 | XMS_ITS | Encounter Summary ---
Author Organization [facility] Address [address] [place] [address] Care Team Providers Care Laundrette Owner Name Role Phone Unavailable Primary Care Provider Unavailabl e Encounter Details Date Type Department Care Team (Latest Contact Info) Description 01/10/2014 20:50 EDT - 01/10/2014 23:59 EDT Hospital Encounter [facility] [address] [place] [address] Unknown, Provider, MD Discharge Disposition: Home or [...] Code Departure Means Destination Home or Self Prison documented in this encounter Plan of Treatment Not on file documented as of this encounter Visit Diagnoses Not on filedocumented in this encounter
--- OUTSIDE RECORDS SUMMARY | 2024-04-29 11:08 | XMS_ITS | Encounter Summary ---
Author Organization [facility] [place] [address] Care Team Providers Care Dairy Laboratory Technician Name Role Phone Ana Her MD Primary Care Provider [phone] Encounter Details Date Type Department Care Team (Latest Contact Info) Description 02/25/2017 2:59 PM EDT - 02/25/2017 11:59 PM EDT Hospital [place] [phone] Enzo Burkett MD Abnormal finding on breast [...] associated with invasive carcinoma. Enzo Burkett MD [facility] MAMMO ORDERABLES * Surgical Pathology Report (02/25/2017 3:01 PM EDT) Final Diagnosis [id number] ? Location: 3L The signing pathologist has [...] FISH. ??Direct analysis was performed using the ALENTY Kit. ??Slide adequacy and signal enumeration were [...] factor receptor 2 testing in breast cancer: [place] [employer]/College of [place]ologists clinical practice guideline update. J Clin Oncol. 2013 Nov . Reviewed by: Kyara Logan MD Center Punch Operator, Molecular Pathology _ Electronically signed by: ??Epifanio Serra MD Verified: ??03/04/2017 ?Pathologist Performed at: ??-[facility] Dept. of Pathology, [place], [place] ? Addendum ADDENDUM DISCUSSION Immunohistochemist ry Studies Specimen: Left breast, core needle biopsy (A1) ER immunoreactivity: Positive ( ??>90% cancer cells with immunostaining) Stain intensity: Strong . ADDENDUM DISCUSSION WV immunoreactivity: Positive ( ??>90% cancer cells with [...] The assays were performed according to the field artillery cannoneer ' s instructions using Anti-ER (SP1) and Anti-WV (16) antibodies. Electronically signed by: ??Epifanio Serra MD Verified: ??02/27/2017 ?Pathologist Performed at: ??-[facility] Dept. 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 of Pathology, [place], [place] DISCUSSION Studies for ER, WV, and HER2 have been ordered; results will [...] O RDERABLES [facility] [place] [address] documented in this encounter Visit Diagnoses Diagnosis Abnormal finding on breast imaging Other (abnormal) findings on radiological examination of breast documented in this encounter Care Teams Dairy Laboratory Technician Relationship Specialty Start Date End Date Ana Her MD [address] [place] [address] PCP - General 07/29/13 documented as of this encounter
--- OUTSIDE RECORDS SUMMARY | 2024-04-29 11:08 | XMS_ITS | Encounter Summary ---
Author Organization [facility] Address [facility] [place] [address] Care Team Providers Care Coater Hand Name Role Phone Unavailable Primary Care Provider Unavailabl e Encounter Details Date Type Department Care Team (Latest Contact Info) Description 12/25/2010 - 12/25/2010 11:59 PM EDT Hospital Encounter Radiology Library at [facility] [place] [address] Jackie Cisneros APRN [facility] [place] [place] [address] Discharge Disposition: Home Social History Tobacco Use [...] Mammo (12/25/2010 12:00 AM EDT) Narrative [facility] - 02/23/2017 3:27 PM EDT This exam is for storage only and is auto-finalizing. Jackie Cisneros APRN IMG FILM LIBRARY ORD ERABLES NADINE Sethi documented in this encounter Visit Diagnoses Not on filedocumented in this encounter
--- OUTSIDE RECORDS SUMMARY | 2024-04-29 11:08 | XMS_ITS | Encounter Summary ---
Author Organization [facility] Address [facility] [place] [address] Care Team Providers Care Extension Specialist Name Role Phone Unavailable Primary Care Provider Unavailabl e Encounter Details Date Type Department Care Team (Latest Contact Info) Description 04/04/2005 - 04/04/2005 11:59 PM EST Hospital Encounter Radiology Library at [facility] [place] [address] Jackie Cisneros APRN [facility] [place] [address] [place] [address] Discharge Disposition: Home Social History Tobacco Use [...]
--- OUTSIDE RECORDS SUMMARY | 2024-05-02 09:39 | XMS_ITS | Encounter Summary ---
[place] [address] Care Team Providers Care Natural Resources Faculty Member Name Role Phone Ana Her MD Primary Care Provider Reason for Visit * Auth/Cert Specialty Diagnoses / Procedures Referred By Christiano hackett Referred To Contact Diagnoses S/P repair of paraesophageal hernia Post-Op monitoring Procedures PRO LAPARSCOPY REPAIR PARAESOPHAGEAL HERNIA INCL FUNDOPLASTY W/O MESH LAPAROSCOPIC PARAESOPHAGEAL HERNIA REPAIR W/FUNDOPLASTY, W/O MESH (WRVU 26.6) MODIFIER TOUPET FUNDOPLASTY Laura Will MD [facility] [place] [address] [facility] Referral ID Status Reason Start Date Expiration Date Visits Re quested Visits Authorized [id number] 1 1 Encounter Details Date Type Department Care Team (Late st Contact Info) Description 03/05/2022 1:58 PM EDT Anesthesia Event [place] [id number] Alisa Naqvi MD [facility] [place] [address] Alessia Ramirez APR[place] [address] Anesthesia Record Procedure Summary Procedure Name Responsible [...] Procedure Summary Date: 03/05/22 Room / Location: [address] MAIN OR Anesthesia Start: 8 Anesthesia Stop: 1823 Procedures: LAPAROSCOPIC PARAESOPHAGEAL HERNIA REPAIR W/FUNDOPLASTY, W/O MESH (WRVU 26.6) (N/A Abdomen) MODIFIER TOUPET FUNDOPLASTY (N/A Abdomen) Diagnosis: (Paraesophageal Hernia) Surgeons: Laura Will MD Responsible Provider: Alisa Naqvi MD Anesthesia Type: general ASA Status: 3 All Anesthesia Providers: Anesthesiologist: Brayan Hubbard MD; Alisa Naqvi MD; Dario Franco MD Powertrain Design Engineer: Mo Vance DO Vitals Value Taken Time BP 125/75 03/05/22 1821 Temp Pulse 77 03/05/22 1823 Resp 18 03/05/22 1823 SpO2 100 % 03/05/22 182 Pain Level Vitals shown include unvalidated device data. Patient Location: PACU/[facility] Level of Consciousness: Awake and [...] of left breast of female, estrogen receptor orbhwxpk52/25/2017 ??? Bicuspid aortic valve 06/10/2016 ??? Dyspnea [...] 6.43) performed by Malika Chen MD at [facility] MAIN OR ??? PRO INTRAOP SENTINEL LYMPH ID W/DYE INJECTION Left 03/30/2017 INTRAOPERATIVE ID (MAPPING) SENTINEL LYMPH NODE,INCLUDES INJECTION (WRVU 2.5) performed by Malika Chen MD at [facility] MAIN OR ??? PRO MASTECTOMY PARTIAL Left 03/30/2017 MASTECTOMY PARTIAL (WRVU 10.13) performed by Malika Chen MD at [facility] MAIN OR ??? PRO UPPER GI ENDOSCOPY, DIAGNOSTIC N/A 01/08/2022 EGD, UPPER GI ENDOSCOPY performed by Laura Will MD at [facility] MAIN OR Social History Tobacco Use [...] sneeze Cardiac Hx: Exercise stress test 10/07/21 [facility]: Resting electrocardiogram showed atrial fibrillation, right BBB, left anterior fascicular block. Patient achieved 4.64METS, achieved 93% of predicted HR for age. Electrocardiographic portion of test negative for ischemia. MPI negative for ischemia or infarction. EF 45%. Wall motion normal. ?? Echo 06/19/21 ([facility]): normal biventricular size and function, symmetric LVH. [...] PONV ppx Mo Shreyas DO Pinky 03/04/2022 Manager Insurance Pager #[phone] Region - Other Informed Consent: Anesthetic plan [...] GERD (omeprazole) ?? Exercise stress test 10/07/21 [facility]: Resting electrocardiogram showed atrial fibrillation, right BBB, left anterior fascicular block. Patient achieved 4.64METS, achieved 93% of predicted HR for age. Electrocardiographic portion of test negative for ischemia. MPI negative for ischemia or infarction. EF 45%. Wall motion normal. ?? Echo 06/19/21 ([facility]): normal biventricular size and function, symmetric [...] 1 view ?? Followed by cardiology at [facility], notes under Care Everywhere. Last seen 06/19/21 [...] mg documented in this encounter Care Teams Natural Resources Faculty Member Relationship Specialty Start Date End Date Ana Her MD [address] [facility] [address] [place] [address] PCP - General 07/29/13 documented as of this encounter
--- OUTSIDE RECORDS SUMMARY | 2024-05-02 09:39 | XMS_ITS | Encounter Summary ---
Author Organization [facility] [place] [address] Care Team Providers Care Insurance Representative Name Role Phone Ana Her MD Primary Care Provider [phone] Encounter Details Date Type Department Care Team (Late st Contact Info) Description 03/09/2022 11:00 PM EST Ancillary Procedure Radiology Library at [facility] [place] [address] Ana Her MD [address] [place] [address] [facility] [address] [place], [place] [id number] Social History Tobacco Use Types Packs/Day Years [...] CT Chest (03/09/2022 10:56 PM EST) Narrative [facility] - 03/09/2022 10:56 PM EST This exam is auto-finalizing. It's purpose is for storage only. Ana Her MD IM FILM LIBRARY ORD ERABLES [place], [place] documented in this encounter Visit Diagnoses Not on filedocumented in this encounter Care Teams Insurance Representative Relationship Specialty Start Date End Date Ana Her MD [address] [facility] [address] [place] [address] PCP - General 07/29/13 documented as of this encounter
--- OUTSIDE RECORDS SUMMARY | 2024-05-02 09:39 | XMS_ITS | Encounter Summary ---
[place] [address] Care Team Providers Care Ski Production Supervisor Name Role Phone Ana Her MD Primary Care Provider [phone] Encounter Details Date Type Department Care Team (Late st Contact Info) Description 02/26/2022 Orders [place] [address] Alicia Manning RN Social History Tobacco Use [...] on filedocumented in this encounter Care Teams Ski Production Supervisor Relationship Specialty Start Date End Date Ana Her MD [address] [place] [address] PCP - General 07/29/13 documented as of this encounter
--- OUTSIDE RECORDS SUMMARY | 2024-05-02 09:39 | XMS_ITS | Encounter Summary ---
[place] [address] Care Team Providers Care Garage Door Service Technician Name Role Phone Ana Her MD Primary Care Provider [phone] Reason for Visit * Auth/Cert Specialty Diagnoses / Procedures Referred By Christiano hackett Referred To Contact Diagnoses S/P repair of paraesophageal hernia Post-Op monitoring Procedures PRO LAPARSCOPY REPAIR PARAESOPHAGEAL HERNIA INCL FUNDOPLASTY W/O MESH LAPAROSCOPIC PARAESOPHAGEAL HERNIA REPAIR W/FUNDOPLASTY, W/O MESH (WRVU 26.6) MODIFIER TOUPET FUNDOPLASTY Shania Will MD [facility] [place] [address] [facility] Referral ID Status Reason Start Date Expiration Date Visits Re quested Visits Authorized [id number] 1 1 Encounter Details Date Type Department Care Team (Latest Contact Info) Description 03/05/2022 11:55 AM EDT - 03/07/2022 10:00 AM EDT Hospital Encounter [place] [id number] Shania Will MD [facility] [place] [address] Discharge Disposition: Home Social History Tobacco Use [...] 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 Anemia D64.9 ??? Aortic valve [...] Per chart review, her creatinine levels in 5667-0856 ranged from 0.87-1.50 indicative of possible undiagnosed [...] PM Shania Will MD General Surgery at [facility] Arrive at: [place] [phone] Instructions Given to Patient at Discharge: Patient [...] hours please call the Surgery Clinic at [phone] before 5 PM on weekdays. For questions after hours and on weekends please call the hospital laminating press operator at [phone] and ask for the General Surgery resident rehabilitation physician. They may not be familiar with your [...] post Sly diet, as instructed by the lead warehouse associate in the hospital for a period [...] renal function. Please call the clinic at [phone] to confirm or reschedule. Future Appointments Date Time Provider Department Center 04/03/2022 12:00 PM Shania Will MD [facility] SURG [facility] General Instructions None Future Appointments and Orders Future Appointments and Orders Future Appointments Provider Department Dept Phone 04/03/2022 12:00 PM Shania Will MD General Surgery at [facility] Arrive at: [place] Signed: Shena Harden MD 03/07/22 7:18 AM [facility] 2026 Primary [place] Physician: MD Geovany David DR [facility] [id number] documented in this encounter Discharge Instructions * [...] hours please call the Surgery Clinic at [phone] before 5 PM on weekdays. For questions after hours and on weekends please call the hospital laminating press operator at [phone] and ask for the General Surgery resident rehabilitation physician. They may not be familiar with your [...] post Sly diet, as instructed by the lead warehouse associate in the hospital for a period [...] renal function. Please call the clinic at [phone] to confirm or reschedule. Future Appointments Date Time Provider Department Center 04/03/2022 12:00 PM Shania Will MD [facility] SURG [facility] documented in this [...] Ocampo RN - 03/07/2022 10:25 AM EDT [facility] Short Stay Unit Discharge Note All [...] Sly Diet Education to pt Digna Olson. Variety Saw Operator metwith pt at bedside to deliver [...] she is noticing some overall improvement post op.Variety Saw Operator took note of this and encouraged [...] Department contact information provided. Pt appreciate of ticket writer's time. Nutrition to follow as needed. 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 Anemia D64.9 ??? Aortic valve [...] [facility] OR ??? PRO MASTECTOMY PARTIAL Left 03/30/2017 ?? MASTECTOMY PARTIAL (WRVU 10.13) performed by Malika Chen MD at [facility] MA[facility] OR ?? Cholecystectomy ?? Medications: [...] Operative Note Patient Name: Digna Olson : [id number] MR#: [id number] Case Date: 03/05/2022 Surgeon: Surgeon(s) and Role: [...] Flores MD - 03/05/2022 2:32 PM EDT [facility] Operative Note Patient Name: Digna Olson : [id number] MR#: [id number] Case Date: 03/05/2022 Surgeon: Surgeon(s) and Role: [...] Repair Paraesophageal Hernia Incl Fundoplasty W/O Mesh (17196) 03/05/2022 1:58 PM EDT Paraesophageal Hernia POCT GLUCOSE Routine 03/05/2022 12:18 PM EDT LAPAROSCOPIC PARAESOPHAGEAL HERNIA REPAIR W FUNDOPLASTY, W/O MESH Routine 03/05/2022 12:02 PM EDT documented in this encounter Results * (ABNORMAL) Differential, Automated (03/07/2022 5:08 AM EDT) Neutrophil % 80.0 % [facility] Neutrophil Absolute 5.30 1.70 - 6.10 x10(3)/mc L [facility] Lymph % 12.1 % [facility] Lymphocytes Abs 0.8(L) 0.9 - 3.2 x10(3)/mc L [facility] Monocyte % 7.6 % [facility] Monocyte Abs 0.5 0.3 - 0.9 x10(3)/mc L [facility] Eos % 0.0 % [facility] Eosinophils Abs 0.0 0.0 - 0.4 x10(3)/mc L [facility] Basophil % 0.0 % [facility] Baso Absolute 0.0 0.0 - 0.1 x10(3)/[facility] Immature Gran % 0.30 % [facility] Comment: Immature granulocytes(IG's)percentage and absolute count will include metamyelocytes, myelocytes, and promyelocytes. Blood smears from CBCs yielding IG's will be scanned manually for concordance. If this scan disagrees with the automated IG or if promyelocytes are noted, a manual differential will be performed. Immature Gran Absolute 0.02 0.00 - 0.04 x10(3)/[facility] Blood 03/07/2022 5:08 AM EDT 03/07/2022 5:19 AM EDT Narrative Resulting Agency Comment Spec In Lab Nino Levy MD HEMATOLOGY ORDERABLE S Performing Organization Address City/State/[facility] Co de Phone Number [facility] [place] [address] * (ABNORMAL) Hemogram (03/07/2022 5:08 AM EDT) White Blood Cell 6.6 4.0 - 9.5 x10(3)/[facility] Red Blood Cell 3.16(L) 4.00 - 5.21 x10(6)/[facility] Hemoglobin 10.7(L) 11.7 - 15.5 g/dL [facility] Hematocrit 31.7(L) 35.7 - 45.8 % [facility] Mean Cell Volume 100.3(H) 82.6 - 94.4 fL [facility] Mean Cell Hemoglobin 33.9(H) 27.1 - 32.0 pg [facility] Mean Cell Hemoglobin Concentration 33.8 31.7 - 35.0 g/dL [facility] Platelet 110(L) 145 - 357 x10(3)/[facility] RDW Standard Deviation 47.5(H) 37.0 - 46.0 fL [facility] RDW coefficient of variation 12.9 11.5 - 14.1 % [facility] Mean Platelet Volume 11.7 7.6 - 12.9 fL [facility] NRBC% auto 0.0 % [facility] NRBC Absolute 0.000 0.000 - 0.000 x10(3)/mc L [facility] Blood 03/07/2022 5:08 AM EDT 03/07/2022 5:19 AM EDT Narrative Resulting Agency Comment Spec In Lab Nino Levy MD HEMATOLOGY ORDERABLE S [facility] [place] [address] * Phosphorus (03/07/2022 5:08 AM EDT) Phosphorus 2.7 2.5 - 4.5 mg/dL [facility] Blood 03/07/2022 5:08 AM EDT 03/07/2022 5:19 AM EDT Narrative Resulting Agency Comment Spec In Lab Shania Will MD CHEMISTRY ORDERABLE S Performing Organization Address City/[facility]/ZIP Co de Phone Number [facility] [place] [address] * Magnesium (03/07/2022 5:08 AM EDT) Magnesium 0.89 0.69 - 1.07 mmol/L [facility] Blood 03/07/2022 5:08 AM EDT 03/07/2022 5:19 AM EDT Narrative Resulting Agency Comment Spec In Lab Shania Will MD CHEMISTRY ORDERABLE S [facility] [place] [address] * (ABNORMAL) Basic Metabolic Panel (non-fasting) (03/07/2022 5:08 AM EDT) Glucose 111 65 - 199 mg/dL [facility] Comment:Diabetes: >=200 mg/d L plus symptoms Blood Urea Nitrogen 22(H) 8 - 18 mg/dL [facility] Creatinine 0.93 0.70 - 1.20 mg/dL [facility] Sodium 131(L) 135 - 145 mmol/L [facility] Potassium 4.5 3.5 - 5.0 mmol/L [facility] Comment: Please note: ??Patients with WBC >100,000 may have falsely elevated Potassium levels. ??For accurate Potassium quantification in these patients send serum separator tube (gold top) for subsequent determinations. ??Contact the Clinical Chemistry Laboratory if there are any questions. Chloride 100 98 - 107 mmol/L [facility] Carbon Dioxide 22 22 - 31 mmol/L [facility] Anion Gap 9 5 - 15 mmol/L [facility] Calcium 9.2 8.5 - 10.5 mg/dL [facility] Est Glomerular Filtration Rate 64 >=60 mL/min/1. 73 m?? [facility] Comment: This patient's estimated [...] Lab Shania Will MD [place] [address] * (ABNORMAL) Differential, Automated (03/06/2022 10:15 AM EDT) Pathologist [facility] Neutrophil % 90.7 % [facility] Neutrophil Absolute 5.79 1.70 - 6.10 x10(3)/ L [facility] Lymph % 5.0 % [facility] Lymphocytes Abs 0.3(L) 0.9 - 3.2 x10(3)/ L [facility] Monocyte % 3.8 % [facility] Monocyte Abs 0.2(L) 0.3 - 0.9 x10(3)/[facility] Eos % 0.0 % [facility] Eosinophils Abs 0.0 0.0 - 0.4 x10(3)/[facility] Basophil % 0.0 % [facility] Baso Absolute 0.0 0.0 - 0.1 x10(3)/ L [facility] Immature Gran % 0.50 % [facility] Comment: Immature granulocytes(IG's)percentage and absolute count will include metamyelocytes, myelocytes, and promyelocytes. Blood smears from CBCs yielding IG's will be scanned manually for concordance. If this scan disagrees with the automated IG or if promyelocytes are noted, a manual differential will be performed. Immature Gran Absolute 0.03 0.00 - 0.04 x10(3)/ L [facility] Blood 03/06/2022 10:1 5 AM EDT 03/06/2022 10:21 AM EDT Narrative Resulting Agency Comment Spec In Lab Maryam MUELLER [place] [address] * (ABNORMAL) Hemogram (03/06/2022 10:15 AM EDT) White Blood Cell 6.4 4.0 - 9.5 x10(3)/mc L [facility] Red Blood Cell 3.07(L) 4.00 - 5.21 x10(6)/mc L [facility] Hemoglobin 10.5(L) 11.7 - 15.5 g/dL [facility] Hematocrit 31.1(L) 35.7 - 45.8 % [facility] Mean Cell Volume 101.3(H) 82.6 - 94.4 fL [facility] Mean Cell Hemoglobin 34.2(H) 27.1 - 32.0 pg [facility] Mean Cell Hemoglobin Concentration 33.8 31.7 - 35.0 g/dL [facility] Platelet 111(L) 145 - 357 x10(3)/ L [facility] RDW Standard Deviation 47.2(H) 37.0 - 46.0 fL [facility] RDW coefficient of variation 12.9 11.5 - 14.1 % [facility] Mean Platelet Volume 11.5 7.6 - 12.9 fL [facility] NRBC% auto 0.0 % [facility] NRBC Absolute 0.000 0.000 - 0.000 x10(3)/mc L [facility] Blood 03/06/2022 10:1 5 AM EDT 03/06/2022 10:21 AM EDT Narrative Resulting Agency Comment Spec In Lab Maryam MUELLER HEMATOLOGY ORDERABL ES [facility] [place] [address] * Phosphorus (03/06/2022 10:15 AM EDT) Phosphorus 3.3 2.5 - 4.5 mg/dL [facility] Blood 03/06/2022 10:1 5 AM EDT 03/06/2022 10:21 AM EDT Narrative Resulting Agency Comment Spec In Lab Shania Wlil MD CHEMISTRY ORDERABLE S Performing Organization Address City/[facility]/ZIP Co de Phone Number [facility] [place] [address] * Magnesium (03/06/2022 10:15 AM EDT) Magnesium 0.69 0.69 - 1.07 mmol/L [facility] Blood 03/06/2022 10:1 5 AM EDT 03/06/2022 10:21 AM EDT Narrative Resulting Agency Comment Spec In Lab Shania Will MD CHEMISTRY ORDERABLE S Performing Organization Address [facility] Co de Phone Number [facility] [place] [address] * (ABNORMAL) Basic Metabolic Panel (non-fasting) (03/06/2022 10:15 AM EDT) Pathologist [facility] Glucose 155 65 - 199 mg/dL [facility] Comment:Diabetes: >=200 mg/d L plus symptoms Blood Urea Nitrogen 29(H) 8 - 18 mg/dL [facility] Creatinine 1.25(H) 0.70 - 1.20 mg/dL [facility] Sodium 134(L) 135 - 145 mmol/L [facility] Potassium 4.8 3.5 - 5.0 mmol/L [facility] Comment: Please note: ??Patients with WBC >100,000 may have falsely elevated Potassium levels. ??For accurate Potassium quantification in these patients send serum separator tube (gold top) for subsequent determinations. ??Contact the Clinical Chemistry Laboratory if there are any questions. Chloride 101 98 - 107 mmol/L [facility] Carbon Dioxide 23 22 - 31 mmol/L [facility] Anion Gap 10 5 - 15 mmol/L [facility] Calcium 8.9 8.5 - 10.5 mg/dL [facility] Est Glomerular Filtration Rate 45(L) >=60 mL/min/1. 73 m?? [facility] Comment: This patient's estimated [...] CHEMISTRY ORDERABLE S Performing Organization Address City/State/[facility] Co de Phone Number [facility] [place] [address] * (ABNORMAL) Differential, Automated (03/06/2022 4:29 AM EDT) Neutrophil % 90.5 % [facility] Neutrophil Absolute 4.47 1.70 - 6.10 x10(3)/mc L [facility] Lymph % 6.9 % [facility] Lymphocytes Abs 0.3(L) 0.9 - 3.2 x10(3)/mc L [facility] Monocyte % 2.2 % [facility] Monocyte Abs 0.1(L) 0.3 - 0.9 x10(3)/mc L [facility] Eos % 0.0 % [facility] Eosinophils Abs 0.0 0.0 - 0.4 x10(3)/mc L [facility] Basophil % 0.2 % [facility] Baso Absolute 0.0 0.0 - 0.1 x10(3)/mc L [facility] Immature Gran % 0.20 % [facility] Comment: Immature granulocytes(IG's)percentage and absolute count will include metamyelocytes, myelocytes, and promyelocytes. Blood smears from CBCs yielding IG's will be scanned manually for concordance. If this scan disagrees with the automated IG or if promyelocytes are noted, a manual differential will be performed. Immature Gran Absolute 0.01 0.00 - 0.04 x10(3)/ L [facility] Blood 03/06/2022 4:29 AM EDT 03/06/2022 4:49 AM EDT Narrative Resulting Agency Comment Spec In Lab Prakash Mendez MD HEMATOLOGY ORDERABLE S [facility] [place] [address] * (ABNORMAL) Hemogram (03/06/2022 4:29 AM EDT) White Blood Cell 4.9 4.0 - 9.5 x10(3)/ L [facility] Red Blood Cell 3.08(L) 4.00 - 5.21 x10(6)/ L [facility] Hemoglobin 10.5(L) 11.7 - 15.5 g/dL [facility] Hematocrit 31.0(L) 35.7 - 45.8 % [facility] Mean Cell Volume 100.6(H) 82.6 - 94.4 fL [facility] Mean Cell Hemoglobin 34.1(H) 27.1 - 32.0 pg [facility] Mean Cell Hemoglobin Concentration 33.9 31.7 - 35.0 g/dL [facility] Platelet 104(L) 145 - 357 x10(3)/ L [facility] RDW Standard Deviation 47.5(H) 37.0 - 46.0 fL [facility] RDW coefficient of variation 12.9 11.5 - 14.1 % [facility] Mean Platelet Volume 11.8 7.6 - 12.9 fL [facility] NRBC% auto 0.0 % [facility] NRBC Absolute 0.000 0.000 - 0.000 x10(3)/mc L [facility] Blood 03/06/2022 4:29 AM EDT 03/06/2022 4:49 AM EDT Narrative Resulting Agency Comment Spec In Lab Prakash Mendez MD HEMATOLOGY ORDERABLE S [facility] [place] [address] * (ABNORMAL) Basic Metabolic Panel (non-fasting) (03/06/2022 4:29 AM EDT) Glucose 140 65 - 199 mg/dL [facility] Comment:Diabetes: >=200 mg/d L plus symptoms Blood Urea Nitrogen 31(H) 8 - 18 mg/dL [facility] Creatinine 1.32(H) 0.70 - 1.20 mg/dL [facility] Sodium 136 135 - 145 mmol/L [facility] Potassium 5.3(H) 3.5 - 5.0 mmol/L [facility] Comment: Please note: ??Patients with WBC >100,000 may have falsely elevated Potassium levels. ??For accurate Potassium quantification in these patients send serum separator tube (gold top) for subsequent determinations. ??Contact the Clinical Chemistry Laboratory if there are any questions. Chloride 103 98 - 107 mmol/L [facility] Carbon Dioxide 23 22 - 31 mmol/L [facility] Anion Gap 10 5 - 15 mmol/L [facility] Calcium 9.0 8.5 - 10.5 mg/dL [facility] Est Glomerular Filtration Rate 42(L) >=60 mL/min/1. 73 m?? [facility] Comment: This patient's estimated [...] Lab Shania Will MD CHEMISTRY ORDERABLE S [facility] [place] [address] * POCT Glucose (03/05/2022 12:18 PM EDT) Glucose, POC 94 65 - 199 mg/dL [facility] Comment: Supplemental ranges: <140 mg/dL before meals <180 mg/dL all other times of the day Blood 03/05/2022 12:1 8 PM EDT 03/05/2022 12:18 PM EDT Shania Will MD POINT OF CARE TEST ORDERABLES Performing Organization Address City/[facility]/ZIP Co de Phone Number [facility] [place] [address] documented in this encounter Visit Diagnoses Diagnosis [...] Unit) documented in this encounter Care Teams Garage Door Service Technician Relationship Specialty Start Date End Date Ana Her MD Geovany [address] [place] [address] PCP - General 07/29/13 documented as of this encounter
--- OUTSIDE RECORDS SUMMARY | 2024-05-02 09:39 | XMS_ITS | Encounter Summary ---
[place] [address] Care Team Providers Care Bench Shear Operator Name Role Phone Ana Her MD Primary Care Provider [phone] Reason for Visit * Auth/Cert Specialty Diagnoses / Procedures Referred By Christiano hackett Referred To Contact Diagnoses S/P repair of paraesophageal hernia Post-Op monitoring Procedures PRO LAPARSCOPY REPAIR PARAESOPHAGEAL HERNIA INCL FUNDOPLASTY W/O MESH LAPAROSCOPIC PARAESOPHAGEAL HERNIA REPAIR W/FUNDOPLASTY, W/O MESH (WRVU 26.6) MODIFIER TOUPET FUNDOPLASTY Shania Will MD [facility] [place] [address] [facility] Referral ID Status Reason Start Date Expiration Date Visits Re quested Visits Authorized [id number] 1 1 Encounter Details Date Type Department Care Team (Late st Contact Info) Description 03/05/2022 12:54 PM EDT - 03/05/2022 4:55 PM EDT Surgery [place] [id number] Shania Will MD [facility] [place] [address] LAPAROSCOPIC PARAESOPHAGEAL HERNIA REPAIR W/FUNDOPLASTY, W/O MESH [...] of left breast of female, estrogen receptor [id number], Z17.0 ??? Anemia D64.9 ??? Aortic valve [...] Per chart review, her creatinine levels in 2006-5078 ranged from 0.87-1.50 indicative of possible undiagnosed [...] PM Shania Will MD General Surgery at [facility] Arrive at: [facility] [phone] Instructions Given to Patient at Discharge: Patient [...] hours please call the Surgery Clinic at [phone] before 5 PM on weekdays. For questions after hours and on weekends please call the hospital spindraw operator at [phone] and ask for the General Surgery resident plant control operator. They may not be familiar with your [...] Sly diet, as instructed by the manager utility in the hospital for a period of [...] renal function. Please call the clinic at [phone] to confirm or reschedule. Future Appointments Date Time Provider Department Center 04/03/2022 12:00 PM Shania Will MD [facility] SURG [facility] General Instructions None Future Appointments and Orders Future Appointments and Orders Future Appointments Provider Department Dept Phone 04/03/2022 12:00 PM Shania Will MD General Surgery at [facility] Arrive at: [facility] 4L [phone] Signed: Shena Harden MD 03/07/22 7:18 AM [phone] Primary Saima Physician: MD Geovany David DR [facility] [id number] documented in this encounter Discharge Instructions * [...] hours please call the Surgery Clinic at [phone] before 5 PM on weekdays. For questions after hours and on weekends please call the hospital spindraw operator at [phone] and ask for the General Surgery resident plant control operator. They may not be familiar with your [...] Sly diet, as instructed by the manager utility in the hospital for a period of [...] renal function. Please call the clinic at [phone] to confirm or reschedule. Future Appointments Date Time Provider Department Center 04/03/2022 12:00 PM Shania Will MD [facility] SURG [facility] documented in this encounter Medications at Time [...] Ocampo RN - 03/07/2022 10:25 AM EDT [facility] Short Stay Unit Discharge Note All [...] Sly Diet Education to pt Digna Olson. Orthoptist metwith pt at bedside to deliver full [...] she is noticing some overall improvement post op.Orthoptist took note of this and encouraged the [...] Department contact information provided. Pt appreciate of expert medical writer's time. Nutrition to follow as needed. [...] Perez MD 03/05/2022 Minimally Invasive Surgery Pager #[phone] * Lorrie Slater RN - 03/05/2022 6:46 [...] ?? She is followed by cardiology at [facility], and is on xarelto. ?? Impression: ??Symptomatic [...] of left breast of female, estrogen receptor [id number], Z17.0 ??? Anemia D64.9 ??? Aortic valve [...] performed by Malika Chen MD at [facility] MAIN OR ??? PRO INTRAOP SENTINEL LYMPH ID W/DYE INJECTION Left 03/30/2017 ?? INTRAOPERATIVE ID (MAPPING) SENTINEL LYMPH NODE,INCLUDES INJECTION (WRVU 2.5) performed by Malika Chen MD at [facility] MAIN OR ??? PRO MASTECTOMY PARTIAL Left 03/30/2017 ?? MASTECTOMY PARTIAL (WRVU 10.13) performed by Malika Chen MD at [facility] MAIN OR ?? Cholecystectomy ?? 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 A [place] which was placed around the esophagus was [...] Repair Paraesophageal Hernia Incl Fundoplasty W/O Mesh (34151) 03/05/2022 1:58 PM EDT Paraesophageal Hernia POCT GLUCOSE Routine 03/05/2022 12:18 PM EDT LAPAROSCOPIC PARAESOPHAGEAL HERNIA REPAIR W FUNDOPLASTY, W/O MESH Routine 03/05/2022 12:02 PM EDT documented in this encounter Results * (ABNORMAL) Differential, Automated (03/07/2022 5:08 AM EDT) Neutrophil % 80.0 % [facility] Neutrophil Absolute 5.30 1.70 - 6.10 x10(3)/mc L [facility] Lymph % 12.1 % [facility] Lymphocytes Abs 0.8(L) 0.9 - 3.2 x10(3)/mc L [facility] Monocyte % 7.6 % [facility] Monocyte Abs 0.5 0.3 - 0.9 x10(3)/mc L [facility] Eos % 0.0 % [facility] Eosinophils Abs 0.0 0.0 - 0.4 x10(3)/[facility] Basophil % 0.0 % [facility] Baso Absolute 0.0 0.0 - 0.1 x10(3)/[facility] Immature Gran % 0.30 % [facility] Comment: Immature granulocytes(IG's)percentage and absolute count will include metamyelocytes, myelocytes, and promyelocytes. Blood smears from CBCs yielding IG's will be scanned manually for concordance. If this scan disagrees with the automated IG or if promyelocytes are noted, a manual differential will be performed. Immature Gran Absolute 0.02 0.00 - 0.04 x10(3)/[facility] Blood 03/07/2022 5:08 AM EDT 03/07/2022 5:19 AM EDT Narrative Resulting Agency Comment Spec In Lab Nino Levy MD HEMATOLOGY ORDERABLE S [facility] [place] [address] * (ABNORMAL) Hemogram (03/07/2022 5:08 AM EDT) White Blood Cell 6.6 4.0 - 9.5 x10(3)/[facility] Red Blood Cell 3.16(L) 4.00 - 5.21 x10(6)/[facility] Hemoglobin 10.7(L) 11.7 - 15.5 g/dL [...] Platelet 110(L) 145 - 357 x10(3)/mc L [facility] RDW Standard Deviation 47.5(H) 37.0 - 46.0 [facility] RDW coefficient of variation 12.9 11.5 - 14.1 % [facility] Mean Platelet Volume 11.7 7.6 - 12.9 [facility] NRBC% auto 0.0 % [facility] NRBC Absolute 0.000 0.000 - 0.000 x10(3)/mc L [facility] Blood 03/07/2022 5:08 AM EDT 03/07/2022 5:19 AM EDT Narrative Resulting Agency Comment Spec In Lab Nino Levy MD HEMATOLOGY ORDERABLE S Performing Organization Address City/[facility]/[place] [address] * Phosphorus (03/07/2022 5:08 AM EDT) Phosphorus 2.7 2.5 - 4.5 mg/dL [facility] Blood 03/07/2022 5:08 AM EDT 03/07/2022 5:19 AM EDT Narrative Resulting Agency Comment Spec In Lab Shania Will MD CHEMISTRY ORDERABLE S Performing Organization Address City/[facility]/ZIP Co de Phone Number [facility] [place] [address] * Magnesium (03/07/2022 5:08 AM EDT) Magnesium 0.89 0.69 - 1.07 mmol/L [facility] Blood 03/07/2022 5:08 AM EDT 03/07/2022 5:19 AM EDT Narrative Resulting Agency Comment Spec In Lab Shania Will MD CHEMISTRY ORDERABLE S [facility] [place] [address] * (ABNORMAL) Basic Metabolic Panel (non-fasting) (03/07/2022 [...] MD CHEMISTRY ORDERABLE S Performing Organization Address City/[facility]/ZIP Co de Phone Number [facility] [place] [address] * (ABNORMAL) Differential, Automated (03/06/2022 10:15 AM EDT) Neutrophil % 90.7 % [facility] Neutrophil Absolute 5.79 1.70 - 6.10 x10(3)/mc L [facility] Lymph % 5.0 % [facility] Lymphocytes Abs 0.3(L) 0.9 - 3.2 x10(3)/mc L [facility] Monocyte % 3.8 % [facility] Monocyte Abs 0.2(L) 0.3 - 0.9 x10(3)/mc L [facility] Eos % 0.0 % [facility] Eosinophils Abs 0.0 0.0 - 0.4 x10(3)/[facility] Basophil % 0.0 % [facility] Baso Absolute 0.0 0.0 - [...] Absolute 0.03 0.00 - 0.04 x10(3)/mc L [facility] Blood 03/06/2022 10:1 5 AM EDT 03/06/2022 10:21 AM EDT Narrative Resulting Agency Comment Spec In Lab Maryam MUELLER HEMATOLOGY ORDERABL ES Performing Organization Address City/[facility]/ZIP Co de Phone Number [facility] [place] [address] * (ABNORMAL) Hemogram (03/06/2022 10:15 AM EDT) [...] CENTER [facility] Platelet 111(L) 145 - 357 x10(3)/[facility] RDW Standard Deviation 47.2(H) 37.0 - 46.0 [facility] RDW coefficient of variation 12.9 11.5 - 14.1 % [facility] Mean Platelet Volume 11.5 7.6 - 12.9 [facility] NRBC% auto 0.0 % [facility] NRBC Absolute 0.000 0.000 - 0.000 x10(3)/ L [facility] Blood 03/06/2022 10:1 5 AM EDT 03/06/2022 10:21 AM EDT Narrative Resulting Agency Comment Spec In Lab Maryam MUELLER HEMATOLOGY ORDERABL ES [facility] [place] [address] * Phosphorus (03/06/2022 10:15 AM EDT) Phosphorus 3.3 2.5 - 4.5 mg/dL [facility] Blood 03/06/2022 10:1 5 AM EDT 03/06/2022 10:21 AM EDT Narrative Resulting Agency Comment Spec In Lab Shania Will MD CHEMISTRY ORDERABLE S [facility] [place] [address] * Magnesium (03/06/2022 10:15 AM EDT) Magnesium 0.69 0.69 - 1.07 mmol/L [facility] Blood 03/06/2022 10:1 5 AM EDT 03/06/2022 10:21 AM EDT Narrative Resulting Agency Comment Spec In Lab Shania Will MD CHEMISTRY ORDERABLE S Performing Organization Address City/[facility]/ZIP Co de Phone Number [facility] [place] [address] * (ABNORMAL) Basic Metabolic Panel (non-fasting) (03/06/2022 10:15 AM EDT) Glucose 155 65 - 199 mg/dL [facility] [...] MD CHEMISTRY ORDERABLE S Performing Organization Address City/State/[facility] Co de Phone Number [facility] [place] [address] * (ABNORMAL) Differential, Automated (03/06/2022 4:29 AM EDT) Neutrophil % 90.5 % [facility] Neutrophil Absolute 4.47 1.70 - 6.10 x10(3)/mc L [facility] Lymph % 6.9 % [facility] Lymphocytes Abs 0.3(L) 0.9 - 3.2 x10(3)/mc L [facility] Monocyte % 2.2 % [facility] Monocyte Abs 0.1(L) 0.3 - 0.9 x10(3)/mc L [facility] Eos % 0.0 % [facility] Eosinophils Abs 0.0 0.0 - 0.4 x10(3)/mc L [facility] Basophil % 0.2 % [facility] Baso Absolute 0.0 0.0 - [...] Immature Gran Absolute 0.01 0.00 - 0.04 x10(3)/[facility] Blood 03/06/2022 4:29 AM EDT 03/06/2022 4:49 AM EDT Narrative Resulting Agency Comment Spec In Lab Prakash Mendez MD HEMATOLOGY ORDERABLE S [facility] [place] [address] * (ABNORMAL) Hemogram (03/06/2022 4:29 AM EDT) White Blood Cell 4.9 4.0 - 9.5 x10(3)/[facility] Red Blood Cell 3.08(L) 4.00 - 5.21 x10(6)/[facility] Hemoglobin 10.5(L) 11.7 - 15.5 g/dL [...] CENTER LABORATORY Platelet 104(L) 145 - 357 x10(3)/[facility] RDW Standard Deviation 47.5(H) 37.0 - 46.0 fL [facility] RDW coefficient of variation 12.9 11.5 - 14.1 % [facility] Mean Platelet Volume 11.8 7.6 - 12.9 fL [facility] NRBC% auto 0.0 % [facility] NRBC Absolute 0.000 0.000 - 0.000 x10(3)/mc L [facility] Blood 03/06/2022 4:29 AM EDT 03/06/2022 4:49 AM EDT Narrative Resulting Agency Comment Spec In Lab Prakash Mendez MD HEMATOLOGY ORDERABLE S [facility] [place] [address] * (ABNORMAL) Basic Metabolic Panel (non-fasting) (03/06/2022 [...] MD CHEMISTRY ORDERABLE S Performing Organization Address City/[facility]/ZIP Co de Phone Number [facility] [place] [address] * POCT Glucose (03/05/2022 12:18 PM EDT) Glucose, POC 94 65 - 199 mg/dL [facility] Comment: Supplemental ranges: <140 mg/dL before meals <180 mg/dL all other times of the day Blood 03/05/2022 12:1 8 PM EDT 03/05/2022 12:18 PM EDT Shania Will MD POINT OF CARE TEST ORDERABLES Performing Organization Address City/[facility]/ZIP Co de Phone Number [facility] [place] [address] documented in this encounter Visit Diagnoses Not [...] Unit) documented in this encounter Care Teams Bench Shear Operator Relationship Specialty Start Date End Date Ana Her MD [address] [facility] [address] [place] [address] PCP - General 07/29/13 documented as of this encounter
--- OUTSIDE RECORDS SUMMARY | 2024-05-02 09:39 | XMS_ITS | Data Portability ---
Author Organization MD - [facility], [facility] Address [facility] [address] Care Team Providers Care Chuck Splitter Name Role Phone GABINODC [employer] Remover [facility] Orthopedic Surgeon [phone] [facility] Sleep Medicine [facility] [employer] Dispatcher Assessment Encounter Date Assessment Date Assessment LastModified by Organization Details LastModified Time 10/14/2023 10/14/2023 Patient presents for pre-op evaluation. The patient is a suitable candidate for the planned procedure. Their chronic medical problems are optimized Further preoperative evaluation is not needed. BMP and CBC are drawn today. The total time devoted to today's encounter, including both the qpon-gn-andg time with the patient and/or family/caregive r and usm-xrze-qs-fac e time I personally spent is 30 minutes. Not available 10/14/2023 11:57:30 12/02/2023 12/02/2023 The total time devoted to today's encounter, including both the jcbh-ut-urha time with the patient and/or family/caregive r and neo-csyg-ep-fac e time I personally spent is 35 minutes. Not available 12/02/2023 14:47:23 03/04/2024 03/04/2024 The total time devoted to today's encounter, including both the oagh-ix-afsl time with the patient and/or family/caregive r and sab-jbev-ws-fac e time I personally spent is 44 minutes. Not available 03/04/2024 17:47:18 Plan of Treatment Reminders Order Date Submit Date Provider Last Modified By Organization Details Last Modified Time Details Appointments Follow Up 2024 01:20P Allan Her Not available Not available Not available Lab CBC 2023 024 [facility] (Registration ), [address] [place] [address] [place] [address], 10/14/2023 15:11:07 BMP, serum or plasma 2023 024 [facility] (Registration ), [address] [place] [address] [place], [address], 10/14/2023 17:41:37 BMP, serum or plasma [address] [facility] (Registration ), [address] [place] [address] [place], [address], 12/30/2023 08:56:49 magnesium , serum or plasma [address] [facility] (Registration ), [address] [place] [address] [place], [address], 12/09/2023 07:38:05 BNP (B-type natriuret ic peptide), serum or plasma 2023 024 [facility] (Registration ), [address] [place] [address] [place], [address], 12/03/2023 20:48:47 CBC 2023 024 [facility] (Registration ), [address] [place] [address] [place], [address], 12/02/2023 16:35:23 BMP, serum or plasma 2023 024 [facility] (Registration ), [address] [place] [address] [place], [address], 04/19/2024 11:42:49 vitamin D, 25-hydrox y, total, serum 2023 024 [facility] (Registration ), [address] [place] [address] [place], [address], 04/18/2024 16:09:19 HbA1c (hemoglob in A1c), blood 2023 [facility] (Registration ), [address] [place] [address] [place], [address], 04/19/2024 11:39:49 TSH, serum, reflex free T4 2023 [facility] (Registration ), [address] [place] [address] [place], [address], 04/19/2024 11:40:25 CBC 2023 [facility] (Registration ), [address] [place] [address] [place], [address], 04/18/2024 15:08:25 ferritin, serum or plasma 2023 [facility] (Registration ), [address] [place] [address] [place], [address], 04/19/2024 11:41:22 iron + total iron-bind ing capacity (TIBC), serum 2023 [facility] (Registration ), [address] [place] [address] [place], [address], 04/19/2024 11:43:17 BMP, serum or plasma 2023 024 [facility] (Registration ), [address] [place] [address] [place], [address], 04/19/2024 11:42:49 vitamin D, 25-hydrox y, total, serum 2023 [facility] (Registration ), [address] [place] [address] [place], [address], 04/18/2024 16:09:19 HbA1c (hemoglob in A1c), blood 2023 024 [facility] (Registration ), [address] [place] [address] [place], [address], 04/19/2024 11:39:49 TSH, serum, reflex free T4 2023 024 [facility] (Registration ), [address] [place] [address] [place], [address], 04/19/2024 11:40:25 CBC 2023 024 [facility] (Registration ), [address] [place] [address] [place], [address], 04/18/2024 15:08:25 ferritin, serum or plasma 2023 024 [facility] (Registration ), [address] [place] [address] [place], [address], 04/19/2024 11:41:22 iron + total iron-bind ing capacity (TIBC), serum 2023 024 [facility] (Registration ), [address] [place] [address] [place], [address], 04/19/2024 11:43:17 Referral None recorded. Procedures None recorded. Surgeries None recorded. Imaging electroca rdiogram 2023 024 [facility], [address], [place], [address], 10/14/2023 11:56:21 Medication Orders tramadol 50 mg tablet 2023 024 [facility], [address] [facility], [place], [address], 02/19/2024 13:12:28 furosemid e 80 mg tablet 2023 024 [facility], [address] [place] [address], [address], [place], [address], 03/04/2024 14:49:38 spironola ctone 25 mg tablet [address], [address] [place] [address], [facility] [address], [address], 12/02/2023 12:50:28 lisinopri l 5 mg tablet 2023 024 [facility], [address] [place] [address], [facility] [address], [place], [address], 02/19/2024 13:19:32 carvedilo l 25 mg tablet 2023 [facility], [address] [place] [address], [address], [place], [address], 04/29/2024 12:42:49 hydromorp ricky 2 mg tablet 2023 024 [facility], [address] [place], [address], 03/04/2024 15:12:30 levothyro xine 75 mcg tablet [address] [facility], [address] [place], [address], 03/04/2024 16:32:19 Patient TargetsNo targets recorded. Patient InstructionsNo instructions recorded. 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 None Reported. Results Created Date Observation Date Name Description Value Unit Range Abnormal Flag Note LastModifiedBy Organization Detail LastModifiedTime 10/14/19 24 10/14/2023 COMPL ETE BLOOD COUNT NO DIFF WBC 8.22 10_3/ uL 4.4-10 .8 normal Not Available [place] [facility] [address] [place], [address] 10/14/2023 15:11:07 10/14/19 24 10/14/2023 COMPL ETE BLOOD COUNT NO DIFF RBC 3.22 10_6/ uL 3.93-5 .22 low Not Available [address] [place], [address] 10/14/2023 15:11:07 10/14/19 24 10/14/2023 COMPL ETE BLOOD COUNT NO DIFF HGB 10.9 g/dL 11.2-1 5.7 low Not Available [address] [place], [address] 10/14/2023 15:11:07 10/14/19 24 10/14/2023 COMPL ETE BLOOD COUNT NO DIFF HCT 32.5 % 36.0-4 6.0 low Not Available [address] [place], [address] 10/14/2023 15:11:07 10/14/19 24 10/14/2023 COMPL ETE BLOOD COUNT NO DIFF MCV 101 fL 80-95 high Not Available Ethel [address] [place], [address] 10/14/2023 15:11:07 10/14/19 24 10/14/2023 COMPL ETE BLOOD COUNT NO DIFF MCH 33.9 pg 27.0-3 3.0 high Not Available [address] [place], [address] 10/14/2023 15:11:07 10/14/19 24 10/14/2023 COMPL ETE BLOOD COUNT NO DIFF MCHC 33.5 % 32.0-3 6.0 normal Not Available [address] [place], [address] 10/14/2023 15:11:07 10/14/19 24 10/14/2023 COMPL ETE BLOOD COUNT NO DIFF RDW 13.9 % 11.7-1 4.6 normal Not Available [address] [place], [address] 10/14/2023 15:11:07 10/14/19 24 10/14/2023 COMPL ETE BLOOD COUNT NO DIFF platelet count 133 10_3/ uL 130-40 0 normal Not Available [address] [place], [address] 10/14/2023 15:11:07 10/14/19 24 10/14/2023 COMPL ETE BLOOD COUNT NO DIFF MPV 12.8 fL 8.0-11 .0 high Not Available [address] [place], [address] 10/14/2023 15:11:07 10/14/19 24 10/14/2023 BASIC METAB OLIC PANEL calcium 9.3 mg/dL 8.5-10 .1 normal Not Available [facility] (Registration ) [address] [place] [address] [place], [address], 10/14/2023 15:19:07 10/14/19 24 10/14/2023 BASIC METAB OLIC PANEL glucose 105 mg/dL 74-106 normal Not Available [facility] (Registration ) [address] [place] [address] [place], [address], 10/14/2023 15:19:07 10/14/19 24 10/14/2023 BASIC METAB OLIC PANEL BUN 49 mg/dL 7-18 high Not Available [facility] (Registration ) [address] [place] [address] [place], [address], 10/14/2023 15:19:07 10/14/19 24 10/14/2023 BASIC METAB OLIC PANEL creatinine 1.9 mg/dL 0.55-1 .02 high Not Available [facility] (Registration ) [address] [place] [address] [place], [address], 10/14/2023 15:19:07 10/14/19 24 10/14/2023 BASIC METAB [...] young er-ag ed adult s. Not Available [facility] (Registration ) [address] [place] [address] [place], [address], 10/14/2023 15:19:07 10/14/19 24 10/14/2023 BASIC METAB OLIC PANEL sodium 137 mmol/ L 136-14 5 normal Not Available [facility] (Registration ) [address] [place] [address] [place], [address], 10/14/2023 15:19:07 10/14/19 24 10/14/2023 BASIC METAB OLIC PANEL potassium 5.1 mmol/ L 3.5-5. 1 normal Not Available [facility] (Registration ) [address] [place] [address] [place], [address], 10/14/2023 15:19:07 10/14/19 24 10/14/2023 BASIC METAB OLIC PANEL chloride 104 mmol/ L 98-107 normal Not Available [facility] (Registration ) [address] [place] [address] [place], [address], 10/14/2023 15:19:07 10/14/19 24 10/14/2023 BASIC METAB OLIC PANEL CO2 20.3 mmol/ L 21.0-3 2.0 low Not Available [facility] (Registration ) [address] [place] [address] [place], [address], 10/14/2023 15:19:07 10/14/19 24 10/14/2023 BASIC METAB OLIC PANEL anion gap 12.7 mmol/ L 3-11 high Not Available [facility] (Registration ) [address] [place] [address] [place], [address], 10/14/2023 15:19:07 11/18/19 24 11/18/2023 LACTA TE lactate 1.0 mmol/ L 0.6-1. 4 normal Not Available [address] [place], [address] 11/18/2023 15:53:33 11/18/19 24 11/18/2023 COMPL ETE BLOOD COUNT W/DIF F WBC 8.69 10_3/ uL 4.4-10 .8 normal Not Available [address] [place], [address] 11/18/2023 15:57:13 11/18/19 24 11/18/2023 COMPL ETE BLOOD COUNT W/DIF F RBC 3.16 10_6/ uL 3.93-5 .22 low Not Available [address] [place], [address] 11/18/2023 15:57:13 11/18/19 24 11/18/2023 COMPL ETE BLOOD COUNT W/DIF F HGB 10.7 g/dL 11.2-1 5.7 low Not Available [address] [place], [address] 11/18/2023 15:57:13 11/18/19 24 11/18/2023 COMPL ETE BLOOD COUNT W/DIF F HCT 33.0 % 36.0-4 6.0 low Not Available [address] [place], [address] 11/18/2023 15:57:13 11/18/19 24 11/18/2023 COMPL ETE BLOOD COUNT W/DIF F MCV 104 fL 80-95 high Not Available [address] [place], [address] 11/18/2023 15:57:13 11/18/19 24 11/18/2023 COMPL ETE BLOOD COUNT W/DIF F MCH 33.9 pg 27.0-3 3.0 high Not Available [address] [place], [address] 11/18/2023 15:57:13 11/18/19 24 11/18/2023 COMPL ETE BLOOD COUNT W/DIF F MCHC 32.4 % 32.0-3 6.0 normal Not Available [address] [place], [address] 11/18/2023 15:57:13 11/18/19 24 11/18/2023 COMPL ETE BLOOD COUNT W/DIF F RDW 14.6 % 11.7-1 4.6 normal Not Available [address] [place], [address] 11/18/2023 15:57:13 11/18/19 24 11/18/2023 COMPL ETE BLOOD COUNT W/DIF F platelet count 134 10_3/ uL 130-40 0 normal Not Available [address] [place], [address] 11/18/2023 15:57:13 11/18/19 24 11/18/2023 COMPL ETE BLOOD COUNT W/DIF F MPV 11.2 fL 8.0-11 .0 high Not Available [address] [place], [address] 11/18/2023 15:57:13 11/18/19 24 11/18/2023 COMPL ETE BLOOD COUNT W/DIF F neutrophils % 74.8 % Not Available [address] [place], [address] 11/18/2023 15:57:13 11/18/19 24 11/18/2023 COMPL ETE BLOOD COUNT W/DIF F lymphocytes % 13.2 % Not Available [address] [place], [address] 11/18/2023 15:57:13 11/18/19 24 11/18/2023 COMPL ETE BLOOD COUNT W/DIF F monocytes % 5.9 % Not Available [address] [place], [address] 11/18/2023 15:57:13 11/18/19 24 11/18/2023 COMPL ETE BLOOD COUNT W/DIF F eosinophils % 5.2 % Not Available [address] [place], [address] 11/18/2023 15:57:13 11/18/19 24 11/18/2023 COMPL ETE BLOOD COUNT W/DIF F basophils % 0.6 % Not Available [address] [place], [address] 11/18/2023 15:57:13 11/18/19 24 11/18/2023 COMPL ETE BLOOD COUNT W/DIF F immature grans % 0.3 % Not Available Ariela avitia [address] [place], [address] 11/18/2023 15:57:13 11/18/19 24 11/18/2023 COMPL ETE BLOOD COUNT W/DIF F nucleated RBC 0.0 % 0.0-0. 3 normal Not Available [address] [place], [address] 11/18/2023 15:57:13 11/18/19 24 11/18/2023 COMPL ETE BLOOD COUNT W/DIF F absolute neutrophil count 6.50 10_3/ uL 1.2-6. 7 normal Not Available [address] [place], [address] 11/18/2023 15:57:13 11/18/19 24 11/18/2023 COMPL ETE BLOOD COUNT W/DIF F absolute lymphocyte count 1.15 10_3/ uL 1.2-3. 4 low Not Available [address] [place], [address] 11/18/2023 15:57:13 11/18/19 24 11/18/2023 COMPL ETE BLOOD COUNT W/DIF F absolute monocyte count 0.51 10_3/ uL 0.1-0. 8 normal Not Available [address] [place], [address] 11/18/2023 15:57:13 11/18/19 24 11/18/2023 COMPL ETE BLOOD COUNT W/DIF F absolute eosinophil count 0.45 10_3/ uL 0.0-0. 7 normal Not Available [address] [place], [address] 11/18/2023 15:57:13 11/18/19 24 11/18/2023 COMPL ETE BLOOD COUNT W/DIF F absolute basophil count 0.05 10_3/ uL 0.0-0. 2 normal Not Available [address] [place], [address] 11/18/2023 15:57:13 11/18/19 24 11/18/2023 PROTH ROMBI N TIME prothrombin time 10.5 sec 9.1-11 .1 normal Not Available [address] [place], [address] 11/18/2023 16:14:17 11/18/19 24 11/18/2023 PROTH ROMBI N TIME INR 1.0 0.9-1. 1 normal Recom noel d INR thera peuti c range s for orall y admin ister ed drugs are as follo ws: -Jair dard Inten sity 2.0 to 3.0 -High er Inten sity 3.0 to 4.5 Not Available [address] [place], [address] 11/18/2023 16:14:17 11/18/19 24 11/18/2023 PTT ACTIV ATED PTT activated 19.6 sec 23.6-3 2.8 low Hepar in Thera peuti c Range for PTT = 52-84 secon ds New Hepar in Thera peuti c Range 06/09 Not Available [address] [place], [address] 11/18/2023 16:14:18 11/18/19 24 11/18/2023 COMPR EHENS NADEEM METAB OLIC PANEL calcium 9.0 mg/dL 8.5-10 .1 normal Not Available [address] [place], [address] 11/18/2023 16:19:21 11/18/19 24 11/18/2023 COMPR EHENS NADEEM METAB OLIC PANEL glucose 100 mg/dL 74-106 normal Not Available Ethel green [address] [place], [address] 11/18/2023 16:19:21 11/18/19 24 11/18/2023 COMPR EHENS NADEEM METAB OLIC PANEL BUN 15 mg/dL 7-18 normal Not Available Ethel green [address] [place], [address] 11/18/2023 16:19:21 11/18/19 24 11/18/2023 COMPR EHENS NADEEM METAB OLIC PANEL creatinine 1.0 mg/dL 0.55-1 .02 normal Not Available [address] [place], [address] 11/18/2023 16:19:21 11/18/19 24 11/18/2023 COMPR EHENS [...] young er-ag ed adult s. Not Available [address] [place], [address] 11/18/2023 16:19:21 11/18/19 24 11/18/2023 COMPR EHENS NADEEM METAB OLIC PANEL total protein 6.8 g/dL 6.4-8. 2 normal Not Available [address] [place], [address] 11/18/2023 16:19:21 11/18/19 24 11/18/2023 COMPR EHENS NADEEM METAB OLIC PANEL albumin 3.8 g/dL 3.4-5. 0 normal Not Available [address] [place], [address] 11/18/2023 16:19:21 11/18/19 24 11/18/2023 COMPR EHENS NADEEM METAB OLIC PANEL bilirubin, total 0.92 mg/dL 0.2-1. 0 normal Not Available [address] [place], [address] 11/18/2023 16:19:21 11/18/19 24 11/18/2023 COMPR EHENS NADEEM METAB OLIC PANEL alk phos 68 U/L 46-116 normal Not Available [address] [place], [address] 11/18/2023 16:19:21 11/18/19 24 11/18/2023 COMPR EHENS NADEEM METAB OLIC PANEL sodium 144 mmol/ L 136-14 5 normal Not Available [address] [place], [address] 11/18/2023 16:19:21 11/18/19 24 11/18/2023 COMPR EHENS NADEEM METAB OLIC PANEL potassium 3.6 mmol/ L 3.5-5. 1 normal Not Available [address] [place], [address] 11/18/2023 16:19:21 11/18/19 24 11/18/2023 COMPR EHENS NADEEM METAB OLIC PANEL chloride 106 mmol/ L 98-107 normal Not Available [address] [place], [address] 11/18/2023 16:19:21 11/18/19 24 11/18/2023 COMPR EHENS NADEEM METAB OLIC PANEL CO2 29.6 mmol/ L 21.0-3 2.0 normal Not Available [address] [place], [address] 11/18/2023 16:19:21 11/18/19 24 11/18/2023 COMPR EHENS NADEEM METAB OLIC PANEL anion gap 8.4 mmol/ L 3-11 normal Not Available [address] [place], [address] 11/18/2023 16:19:21 11/18/19 24 11/18/2023 COMPR EHENS NADEEM METAB OLIC PANEL AST 15 U/L 15-37 normal Not Available Ethel green [address] [place], [address] 11/18/2023 16:19:21 11/18/19 24 11/18/2023 COMPR EHENS NADEEM METAB OLIC PANEL ALT 16 U/L 14-59 normal Not Available Ethel green [address] [place], [address] 11/18/2023 16:19:21 11/18/19 24 11/18/2023 MAGNE SIUM magnesium 1.9 mg/dL 1.8-2. 4 normal Not Available [address] [place], [address] 11/18/2023 16:19:21 11/18/19 24 11/18/2023 LIPAS E lipase 24 U/L 16-77 normal Not Available Ethel green [address] [place], [address] 11/18/2023 16:19:22 11/18/19 24 11/18/2023 TROPO LUCIA I troponin I < 50 NG/L < or =60 Not Available [address] [place], [address] 11/18/2023 16:19:22 11/18/19 24 11/18/2023 NT-MS OBNP nt-probnp 3052 pg/mL <300 high NT-pr [...] false negat nadeem resul ts. Not Available [address] [place], [address] 11/18/2023 16:19:23 11/18/19 24 11/18/2023 TSH (W/RE F FT4) TSH (w/ref FT4) 0.49 uIU/m L 0.36-3 .74 normal Not Available [address] [place], [address] 11/18/2023 16:22:20 11/18/19 24 11/18/2023 URINA LYSIS color Yellow yellow Not Available Ethel green [address] [place], [address] 11/18/2023 19:26:06 07/17/11/18/2023 URINA LYSIS clarity Clear clear Not Available Ethel green [address] [place], [address] 11/18/2023 19:26:06 11/18/19 24 11/18/2023 URINA LYSIS specific gravity 1.015 1.005- 1.025 normal Not Available [address] [place], [address] 11/18/2023 19:26:06 11/18/19 24 11/18/2023 URINA LYSIS pH 6.5 5-8 normal Not Available Ethel green [address] [place], [address] 11/18/2023 19:26:06 11/18/19 24 11/18/2023 URINA LYSIS leukocyte esterase Small negati ve abnormal Not Available [address] [place], [address] 11/18/2023 19:26:06 11/18/19 24 11/18/2023 URINA LYSIS nitrite Negati ve negati ve Not Available [address] [place], [address] 11/18/2023 19:26:06 11/18/19 24 11/18/2023 URINA LYSIS protein Negati ve mg/dL neg-tr patrick Not Available [address] [place], [address] 11/18/2023 19:26:06 11/18/19 24 11/18/2023 URINA LYSIS glucose Negati ve mg/dL negati ve Not Available [address] [place], [address] 11/18/2023 19:26:06 11/18/19 24 11/18/2023 URINA LYSIS ketones Negati ve mg/dL negati ve Not Available [address] [place], [address] 11/18/2023 19:26:06 11/18/19 24 11/18/2023 URINA LYSIS urobilinogen 0.2 mg/dL up to 0.2 Not Available [address] [place], [address] 11/18/2023 19:26:06 11/18/19 24 11/18/2023 URINA LYSIS bilirubin Negati ve negati ve Not Available [address] [place], [address] 11/18/2023 19:26:06 11/18/19 24 11/18/2023 URINA LYSIS blood Negati ve negati ve Not Available [address] [place], [address] 11/18/2023 19:26:06 11/18/19 24 11/18/2023 URINA LYSIS color Yellow yellow Not Available Ethel green [address] [place], [address] 11/18/2023 20:30:25 11/18/19 24 11/18/2023 URINA LYSIS clarity Clear clear Not Available Ethel green [address] [place], [address] 11/18/2023 20:30:25 11/18/19 24 11/18/2023 URINA LYSIS specific gravity 1.015 1.005- 1.025 normal Not Available [address] [place], [address] 11/18/2023 20:30:25 11/18/19 24 11/18/2023 URINA LYSIS pH 6.5 5-8 normal Not Available Ethel green [address] [place], [address] 11/18/2023 20:30:25 11/18/19 24 11/18/2023 URINA LYSIS leukocyte esterase Small negati ve abnormal Not Available [address] [place], [address] 11/18/2023 20:30:25 11/18/19 24 11/18/2023 URINA LYSIS nitrite Negati ve negati ve Not Available [address] [place], [address] 11/18/2023 20:30:25 11/18/19 24 11/18/2023 URINA LYSIS protein Negati ve mg/dL neg-tr patrick Not Available [address] [place], [address] 11/18/2023 20:30:25 11/18/19 24 11/18/2023 URINA LYSIS glucose Negati ve mg/dL negati ve Not Available [address] [place], [address] 11/18/2023 20:30:25 11/18/19 24 11/18/2023 URINA LYSIS ketones Negati ve mg/dL negati ve Not Available [address] [place], [address] 11/18/2023 20:30:25 11/18/19 24 11/18/2023 URINA LYSIS urobilinogen 0.2 mg/dL up to 0.2 Not Available [address] [place], [address] 11/18/2023 20:30:25 11/18/19 24 11/18/2023 URINA LYSIS bilirubin Negati ve negati ve Not Available [address] [place], [address] 11/18/2023 20:30:25 11/18/19 24 11/18/2023 URINA LYSIS blood Negati ve negati ve Not Available [address] [place], [address] 11/18/2023 20:30:25 11/18/19 24 11/18/2023 MICRO SCOPI C FINDI NGS WBC 3-5 hpf 0-5 Not Available Ethel green [address] [place], [address] 11/18/2023 20:30:25 11/18/19 24 11/18/2023 MICRO SCOPI C FINDI NGS RBC Negati ve hpf 0-2 Not Available Joel smith [address] [place], [address] 11/18/2023 20:30:25 11/18/19 24 11/18/2023 MICRO SCOPI C FINDI NGS epithelial cells Many hpf negati ve Not Available [address] [place], [address] 11/18/2023 20:30:25 11/18/19 24 11/18/2023 MICRO SCOPI C FINDI NGS bacteria Few hpf negati ve Not Available [address] [place], [address] 11/18/2023 20:30:25 11/18/19 24 11/18/2023 MICRO SCOPI C FINDI NGS crystals Negati ve hpf negati ve Not Available [address] [place], [address] 11/18/2023 20:30:25 11/18/19 24 11/18/2023 MICRO SCOPI C FINDI NGS mucus Trace negati ve Not Available [address] [place], [address] 11/18/2023 20:30:25 11/18/19 24 11/18/2023 MICRO SCOPI C FINDI NGS C S indicated? No Not Available [address] [place], [address] 11/18/2023 20:30:25 11/18/19 24 11/18/2023 TROPO LUCIA I troponin I < 50 NG/L < or =60 Not Available [address] [place], [address] 11/18/2023 22:25:47 11/18/19 24 11/18/2023 VENOU S BLOOD GAS pH (venous) 7.45 7.31-7 .41 high Not Available [address] [place], [address] 11/18/2023 23:12:54 11/18/19 24 11/18/2023 VENOU S BLOOD GAS pCO2 (venous) 44 mmHg 41-51 normal Not Available [address] [place], [address] 11/18/2023 23:12:54 11/18/19 24 11/18/2023 VENOU S BLOOD GAS pO2 (venous) 37 mmHg Not Available [address] [place], [address] 11/18/2023 23:12:54 11/18/19 24 11/18/2023 VENOU S BLOOD GAS TCO2 (venous) 28 mmol/ L 24-29 normal Not Available [address] [place], [address] 11/18/2023 23:12:54 11/18/19 24 11/18/2023 VENOU S BLOOD GAS HCO3 (venous) 30 mmol/ L 23-28 high Not Available [address] [place], [address] 11/18/2023 23:12:54 11/18/19 24 11/18/2023 VENOU S BLOOD GAS BE (venous) 6 mmol/ L -2-3 high Not Available [address] [place], [address] 11/18/2023 23:12:54 11/18/19 24 11/18/2023 VENOU S BLOOD GAS O2 sat (venous) 74 % Not Available Ariela avitia [address] [place], [address] 11/18/2023 23:12:54 11/19/19 24 11/19/2023 COMPL ETE BLOOD COUNT W/DIF F WBC 7.07 10_3/ uL 4.4-10 .8 normal Not Available [address] [place], [address] 11/19/2023 07:03:22 11/19/19 24 11/19/2023 COMPL ETE BLOOD COUNT W/DIF F RBC 2.93 10_6/ uL 3.93-5 .22 low Not Available [address] [place], [address] 11/19/2023 07:03:22 11/19/19 24 11/19/2023 COMPL ETE BLOOD COUNT W/DIF F HGB 9.8 g/dL 11.2-1 5.7 low Not Available [address] [place], [address] 11/19/2023 07:03:22 11/19/19 24 11/19/2023 COMPL ETE BLOOD COUNT W/DIF F HCT 30.5 % 36.0-4 6.0 low Not Available [address] [place], [address] 11/19/2023 07:03:22 11/19/19 24 11/19/2023 COMPL ETE BLOOD COUNT W/DIF F MCV 104 fL 80-95 high Not Available Ethel green [address] [place], [address] 11/19/2023 07:03:22 11/19/19 24 11/19/2023 COMPL ETE BLOOD COUNT W/DIF F MCH 33.4 pg 27.0-3 3.0 high Not Available [address] [place], [address] 11/19/2023 07:03:22 11/19/19 24 11/19/2023 COMPL ETE BLOOD COUNT W/DIF F MCHC 32.1 % 32.0-3 6.0 normal Not Available [address] [place], [address] 11/19/2023 07:03:22 11/19/19 24 11/19/2023 COMPL ETE BLOOD COUNT W/DIF F RDW 14.4 % 11.7-1 4.6 normal Not Available [address] [place], [address] 11/19/2023 07:03:22 11/19/19 24 11/19/2023 COMPL ETE BLOOD COUNT W/DIF F platelet count 112 10_3/ uL 130-40 0 low Not Available [address] [place], [address] 11/19/2023 07:03:22 11/19/19 24 11/19/2023 COMPL ETE BLOOD COUNT W/DIF F MPV 10.8 fL 8.0-11 .0 normal Not Available [address] [place], [address] 11/19/2023 07:03:22 11/19/19 24 11/19/2023 COMPL ETE BLOOD COUNT W/DIF F neutrophils % 74.3 % Not Available [address] [place], [address] 11/19/2023 07:03:22 11/19/19 24 11/19/2023 COMPL ETE BLOOD COUNT W/DIF F lymphocytes % 14.1 % Not Available [address] [place], [address] 11/19/2023 07:03:22 11/19/19 24 11/19/2023 COMPL ETE BLOOD COUNT W/DIF F monocytes % 6.5 % Not Available [address] [place], [address] 11/19/2023 07:03:22 11/19/19 24 11/19/2023 COMPL ETE BLOOD COUNT W/DIF F eosinophils % 4.4 % Not Available [address] [place], [address] 11/19/2023 07:03:22 11/19/19 24 11/19/2023 COMPL ETE BLOOD COUNT W/DIF F basophils % 0.4 % Not Available [address] [place], [address] 11/19/2023 07:03:22 11/19/19 24 11/19/2023 COMPL ETE BLOOD COUNT W/DIF F immature grans % 0.3 % Not Available [address] [place], [address] 11/19/2023 07:03:22 11/19/19 24 11/19/2023 COMPL ETE BLOOD COUNT W/DIF F nucleated RBC 0.0 % 0.0-0. 3 normal Not Available [address] [place], [address] 11/19/2023 07:03:22 11/19/19 24 11/19/2023 COMPL ETE BLOOD COUNT W/DIF F absolute neutrophil count 5.25 10_3/ uL 1.2-6. 7 normal Not Available [address] [place], [address] 11/19/2023 07:03:22 11/19/19 24 11/19/2023 COMPL ETE BLOOD COUNT W/DIF F absolute lymphocyte count 1.00 10_3/ uL 1.2-3. 4 low Not Available [address] [place], [address] 11/19/2023 07:03:22 11/19/19 24 11/19/2023 COMPL ETE BLOOD COUNT W/DIF F absolute monocyte count 0.46 10_3/ uL 0.1-0. 8 normal Not Available [address] [place], [address] 11/19/2023 07:03:22 11/19/19 24 11/19/2023 COMPL ETE BLOOD COUNT W/DIF F absolute eosinophil count 0.31 10_3/ uL 0.0-0. 7 normal Not Available [address] [place], [address] 11/19/2023 07:03:22 11/19/19 24 11/19/2023 COMPL ETE BLOOD COUNT W/DIF F absolute basophil count 0.03 10_3/ uL 0.0-0. 2 normal Not Available [address] [place], [address] 11/19/2023 07:03:22 11/19/19 24 11/19/2023 IRON AND IBCT iron 45 ug/dL 50-170 low Not Available Ethel green [address] [place], [address] 11/19/2023 07:24:25 11/19/19 24 11/19/2023 IRON AND IBCT total iron binding capacity 284 ug/dL 250-45 0 normal Not Available [address] [place], [address] 11/19/2023 07:24:25 11/19/19 24 11/19/2023 IRON AND IBCT transferrin sat 16 % 15-50 normal Not Available Ariela avitia [address] [place], [address] 11/19/2023 07:24:25 11/19/19 24 11/19/2023 BASIC METAB OLIC PANEL calcium 8.5 mg/dL 8.5-10 .1 normal Not Available [address] [place], [address] 11/19/2023 07:49:36 11/19/19 24 11/19/2023 BASIC METAB OLIC PANEL glucose 93 mg/dL 74-106 normal Not Available Ethel green [address] [place], [address] 11/19/2023 07:49:36 11/19/19 24 11/19/2023 BASIC METAB OLIC PANEL BUN 12 mg/dL 7-18 normal Not Available Ethel green [address] [place], [address] 11/19/2023 07:49:36 11/19/19 24 11/19/2023 BASIC METAB OLIC PANEL creatinine 0.8 mg/dL 0.55-1 .02 normal Not Available [address] [place], [address] 11/19/2023 07:49:36 11/19/19 24 11/19/2023 BASIC METAB [...] young er-ag ed adult s. Not Available [address] [place], [address] 11/19/2023 07:49:36 11/19/19 24 11/19/2023 BASIC METAB OLIC PANEL sodium 147 mmol/ L 136-14 5 high Not Available [address] [place], [address] 11/19/2023 07:49:36 11/19/19 24 11/19/2023 BASIC METAB OLIC PANEL potassium 3.2 mmol/ L 3.5-5. 1 low Not Available [address] [place], [address] 11/19/2023 07:49:36 11/19/19 24 11/19/2023 BASIC METAB OLIC PANEL chloride 107 mmol/ L 98-107 normal Not Available [address] [place], [address] 11/19/2023 07:49:36 11/19/19 24 11/19/2023 BASIC METAB OLIC PANEL CO2 31.2 mmol/ L 21.0-3 2.0 normal Not Available [address] [place], [address] 11/19/2023 07:49:36 11/19/19 24 11/19/2023 BASIC METAB OLIC PANEL anion gap 8.8 mmol/ L 3-11 normal Not Available [address] [place], [address] 11/19/2023 07:49:36 11/19/19 24 11/19/2023 DANIEL TIN ferritin 169 NG/mL 8-252 normal Not Available [address] [place], [address] 11/19/2023 07:49:36 11/19/19 24 11/19/2023 MAGNE SIUM magnesium 1.8 mg/dL 1.8-2. 4 normal Not Available [address] [place], [address] 11/19/2023 07:49:37 11/19/19 24 11/19/2023 VITAM IN B12 vitamin B12 1124 pg/mL 193-98 6 high Not Available [address] [place], [address] 11/19/2023 07:49:37 11/19/19 24 11/19/2023 FOLAT E folate 19.3 NG/mL 8.6-20 .0 normal Not Available [address] [place], [address] 11/19/2023 07:49:37 11/19/19 24 11/20/2023 TRANS DANIEL N transferrin 188 mg/dL 201-35 2 abnormal Test perfo rmed or refer red by [facility] [address], [place] [address] Not Available [address] [place], [address] 11/23/2023 12:15:30 11/20/19 24 11/20/2023 BASIC METAB OLIC PANEL calcium 8.9 mg/dL 8.5-10 .1 normal Not Available [address] [place], [address] 11/20/2023 07:12:43 11/20/19 24 11/20/2023 BASIC METAB OLIC PANEL glucose 115 mg/dL 74-106 high Not Available Ethel green [address] [place], [address] 11/20/2023 07:12:43 11/20/19 24 11/20/2023 BASIC METAB OLIC PANEL BUN 19 mg/dL 7-18 high Not Available Ethel green [address] [place], [address] 11/20/2023 07:12:43 11/20/19 24 11/20/2023 BASIC METAB OLIC PANEL creatinine 1.0 mg/dL 0.55-1 .02 normal Not Available [address] [place], [address] 11/20/2023 07:12:43 11/20/19 24 11/20/2023 BASIC METAB [...] young er-ag ed adult s. Not Available [address] [place], [address] 11/20/2023 07:12:43 11/20/19 24 11/20/2023 BASIC METAB OLIC PANEL sodium 140 mmol/ L 136-14 5 normal Not Available [address] [place], [address] 11/20/2023 07:12:43 11/20/19 24 11/20/2023 BASIC METAB OLIC PANEL potassium 3.6 mmol/ L 3.5-5. 1 normal Not Available [address] [place], [address] 11/20/2023 07:12:43 11/20/19 24 11/20/2023 BASIC METAB OLIC PANEL chloride 100 mmol/ L 98-107 normal Not Available [address] [place], [address] 11/20/2023 07:12:43 11/20/19 24 11/20/2023 BASIC METAB OLIC PANEL CO2 33.2 mmol/ L 21.0-3 2.0 high Not Available [address] [place], [address] 11/20/2023 07:12:43 11/20/19 24 11/20/2023 BASIC METAB OLIC PANEL anion gap 6.8 mmol/ L 3-11 normal Not Available [address] [place], [address] 11/20/2023 07:12:43 12/02/19 24 12/02/2023 BASIC METAB OLIC PANEL calcium 9.8 mg/dL 8.5-10 .1 normal Not Available [address] [place], [address] 12/02/2023 16:25:21 12/02/19 24 12/02/2023 BASIC METAB OLIC PANEL glucose 104 mg/dL 74-106 normal Not Available Ethel green [address] [place], [address] 12/02/2023 16:25:21 12/02/19 24 12/02/2023 BASIC METAB OLIC PANEL BUN 20 mg/dL 7-18 high Not Available Ethel green [address] [place], [address] 12/02/2023 16:25:21 12/02/19 24 12/02/2023 BASIC METAB OLIC PANEL creatinine 1.1 mg/dL 0.55-1 .02 high Not Available [address] [place], [address] 12/02/2023 16:25:21 12/02/19 24 12/02/2023 BASIC METAB [...] young er-ag ed adult s. Not Available [address] [place], [address] 12/02/2023 16:25:21 12/02/19 24 12/02/2023 BASIC METAB OLIC PANEL sodium 143 mmol/ L 136-14 5 normal Not Available [address] [place], [address] 12/02/2023 16:25:21 12/02/19 24 12/02/2023 BASIC METAB OLIC PANEL potassium 4.6 mmol/ L 3.5-5. 1 normal Not Available [address] [place], [address] 12/02/2023 16:25:21 12/02/19 24 12/02/2023 BASIC METAB OLIC PANEL chloride 106 mmol/ L 98-107 normal Not Available [address] [place], [address] 12/02/2023 16:25:21 12/02/19 24 12/02/2023 BASIC METAB OLIC PANEL CO2 29.1 mmol/ L 21.0-3 2.0 normal Not Available [address] [place], [address] 12/02/2023 16:25:21 12/02/19 24 12/02/2023 BASIC METAB OLIC PANEL anion gap 7.9 mmol/ L 3-11 normal Not Available [address] [place], [address] 12/02/2023 16:25:21 12/02/19 24 12/02/2023 MAGNE SIUM magnesium 1.8 mg/dL 1.8-2. 4 normal Not Available [address] [place], [address] 12/02/2023 16:25:22 12/02/19 24 12/02/2023 NT-MS OBNP nt-probnp 2190 pg/mL <300 high NT-pr [...] false negat nadeem resul ts. Not Available [facility] (Registration ) [address] [place] [address] [place], [address], 12/02/2023 16:25:22 12/02/19 24 12/02/2023 COMPL ETE BLOOD COUNT NO DIFF WBC 7.43 10_3/ uL 4.4-10 .8 normal Not Available [address] [place], [address] 12/02/2023 16:35:23 12/02/19 24 12/02/2023 COMPL ETE BLOOD COUNT NO DIFF RBC 3.18 10_6/ uL 3.93-5 .22 low Not Available [address] [place], [address] 12/02/2023 16:35:23 12/02/19 24 12/02/2023 COMPL ETE BLOOD COUNT NO DIFF HGB 10.6 g/dL 11.2-1 5.7 low Not Available [address] [place], [address] 12/02/2023 16:35:23 12/02/19 24 12/02/2023 COMPL ETE BLOOD COUNT NO DIFF HCT 33.5 % 36.0-4 6.0 low Not Available [address] [place], [address] 12/02/2023 16:35:23 12/02/19 24 12/02/2023 COMPL ETE BLOOD COUNT NO DIFF MCV 105 fL 80-95 high 1+ macro cytos is Not Available [address] [place], [address] 12/02/2023 16:35:23 12/02/19 24 12/02/2023 COMPL ETE BLOOD COUNT NO DIFF MCH 33.3 pg 27.0-3 3.0 high Not Available [address] [place], [address] 12/02/2023 16:35:23 12/02/19 24 12/02/2023 COMPL ETE BLOOD COUNT NO DIFF MCHC 31.6 % 32.0-3 6.0 low Not Available [address] [place], [address] 12/02/2023 16:35:23 12/02/19 24 12/02/2023 COMPL ETE BLOOD COUNT NO DIFF RDW 13.3 % 11.7-1 4.6 normal Not Available [address] [place], [address] 12/02/2023 16:35:23 12/02/19 24 12/02/2023 COMPL ETE BLOOD COUNT NO DIFF platelet count 140 10_3/ uL 130-40 0 normal Not Available [address] [place], [address] 12/02/2023 16:35:23 12/02/19 24 12/02/2023 COMPL ETE BLOOD COUNT NO DIFF MPV 11.8 fL 8.0-11 .0 high Not Available [address] [place], [address] 12/02/2023 16:35:23 04/18/20 24 04/18/2024 COMPL ETE BLOOD COUNT NO DIFF WBC 6.58 10_3/ uL 4.4-10 .8 normal Not Available [address] [place], [address] 04/18/2024 15:08:25 04/18/20 24 04/18/2024 COMPL ETE BLOOD COUNT NO DIFF RBC 3.70 10_6/ uL 3.93-5 .22 low Not Available [address] [place], [address] 04/18/2024 15:08:25 04/18/20 24 04/18/2024 COMPL ETE BLOOD COUNT NO DIFF HGB 12.0 g/dL 11.2-1 5.7 normal Not Available [address] [place], [address] 04/18/2024 15:08:25 04/18/20 24 04/18/2024 COMPL ETE BLOOD COUNT NO DIFF HCT 38.0 % 36.0-4 6.0 normal Not Available [address] [place], [address] 04/18/2024 15:08:25 04/18/20 24 04/18/2024 COMPL ETE BLOOD COUNT NO DIFF MCV 103 fL 80-95 high Not Available [address] [place], [address] 04/18/2024 15:08:25 04/18/20 24 04/18/2024 COMPL ETE BLOOD COUNT NO DIFF MCH 32.4 pg 27.0-3 3.0 normal Not Available [address] [place], [address] 04/18/2024 15:08:25 04/18/20 24 04/18/2024 COMPL ETE BLOOD COUNT NO DIFF MCHC 31.6 % 32.0-3 6.0 low Not Available [address] [place], [address] 04/18/2024 15:08:25 04/18/20 24 04/18/2024 COMPL ETE BLOOD COUNT NO DIFF RDW 15.6 % 11.7-1 4.6 high Not Available [address] [place], [address] 04/18/2024 15:08:25 04/18/20 24 04/18/2024 COMPL ETE BLOOD COUNT NO DIFF platelet count 124 10_3/ uL 130-40 0 low Not Available [address] [place], [address] 04/18/2024 15:08:25 04/18/20 24 04/18/2024 COMPL ETE BLOOD COUNT NO DIFF MPV 11.2 fL 8.0-11 .0 high Not Available [address] [place], [address] 04/18/2024 15:08:25 04/18/20 24 04/18/2024 IRON AND IBCT iron 65 ug/dL 50-170 normal Not Available [facility] (Registration ) [address] [place] [address] [place], [address], 04/18/2024 16:07:17 04/18/20 24 04/18/2024 IRON AND IBCT total iron binding capacity 318 ug/dL 250-45 0 normal Not Available [facility] (Registration ) [address] [place] [address] [place], [address], 04/18/2024 16:07:17 04/18/20 24 04/18/2024 IRON AND IBCT transferrin sat 20 % 15-50 normal Not Available [facility] (Registration ) [address] [place] [address] [place], [address], 04/18/2024 16:07:17 04/18/20 24 04/18/2024 BASIC METAB OLIC PANEL calcium 9.4 mg/dL 8.5-10 .1 normal Not Available [facility] (Registration ) [address] [place] [address] [place], [address], 04/18/2024 16:09:17 04/18/20 24 04/18/2024 BASIC METAB OLIC PANEL glucose 103 mg/dL 74-106 normal Not Available [facility] (Registration ) [address] [place] [address] [place], [address], 04/18/2024 16:09:17 04/18/20 24 04/18/2024 BASIC METAB OLIC PANEL BUN 21 mg/dL 7-18 high Not Available [facility] (Registration ) [address] [place] [address] [place], [address], 04/18/2024 16:09:17 04/18/20 24 04/18/2024 BASIC METAB OLIC PANEL creatinine 1.0 mg/dL 0.55-1 .02 normal Not Available [facility] (Registration ) [address] [place] [address] [place], [address], 04/18/2024 16:09:17 04/18/20 24 04/18/2024 BASIC METAB [...] young er-ag ed adult s. Not Available [facility] (Registration ) [address] [place] [address] [place], [address], 04/18/2024 16:09:17 04/18/20 24 04/18/2024 BASIC METAB OLIC PANEL sodium 145 mmol/ L 136-14 5 normal Not Available [facility] (Registration ) [address] [place] [address] [place], [address], 04/18/2024 16:09:17 04/18/20 24 04/18/2024 BASIC METAB OLIC PANEL potassium 4.2 mmol/ L 3.5-5. 1 normal Not Available [facility] (Registration ) [address] [place] [address] [place], [address], 04/18/2024 16:09:17 04/18/20 24 04/18/2024 BASIC METAB OLIC PANEL chloride 107 mmol/ L 98-107 normal Not Available [facility] (Registration ) [address] [place] [address] [place], [address], 04/18/2024 16:09:17 04/18/20 24 04/18/2024 BASIC METAB OLIC PANEL CO2 31.4 mmol/ L 21.0-3 2.0 normal Not Available [facility] (Registration ) [address] [place] [address] [place], [address], 04/18/2024 16:09:17 04/18/20 24 04/18/2024 BASIC METAB OLIC PANEL anion gap 6.6 mmol/ L 3-11 normal Not Available [facility] (Registration ) [address] [place] [address] [place], [address], 04/18/2024 16:09:17 04/18/20 24 04/18/2024 DANIEL TIN ferritin 211 NG/mL 8-252 normal Not Available [facility] (Registration ) [address] [place] [address] [place], [address], 04/18/2024 16:09:18 04/18/20 24 04/18/2024 TSH (W/RE F FT4) TSH (w/ref FT4) 2.17 uIU/m L 0.36-3 .74 normal NOTE: Supra -phys iolog ic doses of Bioti n(B7) may cause false negat nadeem resul ts. Not Available [facility] (Registration ) [address] [place] [address] [place], [address], 04/18/2024 16:09:18 04/18/20 24 04/18/2024 VITAM IN D 25 TOTAL vitamin D 25 total 63.9 NG/mL 30-100 normal Refer ence Guide lines : Defic ient: <10 ng/ml Insuf ficie nt: 10-30 ng/ml Suffi cient : 30-10 0 ng/ml Toxic : >100 ng/ml Not Available [address] [place], [address] 04/18/2024 16:09:19 04/18/20 24 04/18/2024 HEMOG LOBIN [...] pleme nt 1):S1 3-s28 . Not Available [facility] (Registration ) [address] , [place], [address], 04/18/2024 16:21:24 10/14/19 24 10/14/2023 elect rocar diogr am No observ ation record ed. [facility] [address] , [place], [address], 10/14/2023 11:56:20 10/14/19 24 elect rocar diogr am No observ ation record ed. Not Available 2023 10:55:07 11/04/19 24 10/14/2023 rhyth m strip , EKG* No observ ation record ed. [email or web address] Not Available 2023 10:18:08 11/18/19 24 11/18/2023 US, duple x, lower extre mity Patien t Name: Rema Olson Unit #: [id number] Loc: ER Sonal ng Provid er: Braydon Doyle Accoun t #: [id number] Status : REG ER Primar y Care [facility] er: Erich Her M.D. Date of [...] tation , and color Dopple r. The template storage clerk ior tibial veins are patent . IMPRES JASON: Right: Negati ve for DVT Left: Negati ve for DVT DATA REPOSI TORY: Fredy mahan By: Braydon Doyle CC: ------ ------ ------ [...] at the addres s above. Thank- you. [facility] [address], [place], [address] 11/18/2023 16:48:49 11/18/19 24 11/18/2023 CT imagi martin hackett Name: Rema Olson Unit #: [id number] Loc: ER Sonal salazar Provid er: Braydon Doyle Accoun t #: [id number] Status : REG ER Primar y Care [...] interl obular septal thicke jama greate r template storage clerk iorly which could indica te mild CHF. No consol idatio n or domina nt measur able mass. Pleura : Small left pleura l effusi on. Heart: The heart is modera tely dilate d. Environmental Technical Officer ior perica rdial effusi on. Minima l [...] . Small perica rdial effusi on seen template storage clerk iorly. Small left pleura l effusi on. [...] error, please notify us immedi zayly at [phone] and return the origin al report to us at the addres s above. Thank- you. [facility] [address], [place], [address] 11/19/2023 12:12:11 11/19/19 24 11/19/2023 ultra sound imagi martin hackett Name: Rema Olson Unit #: [id number] Loc: MS Sonal salazar Provid er: Huseyin Bolaños M.D. Accoun t #: [id number] Status : ADM IN Primar y [facility] er: Erich Her M.D. Date [...] this report in error, please notify us immphilomenai zayly at and return the origin al report to us at the addres s above. Thank- you. [place] [address] [facility] [place], [address] 11/19/2023 12:12:11 01/18/20 24 11/15/2018 imagi ng/di [...] humeral fracture 2023- MD [address], [place], [address] , [facility] 4 17:34:10 Hypothyr oidism 54436098 Active 1959 EVIE shaw, [facility] 4 10:29:59 [facility] hyperten jason 13679613 Active 1959 EVIE shaw, [facility] 4 10:29:36 Hyperlip idemia 99752888 Active 1959 on statin MD [address], [place], [address] , [facility] 4 20:35:18 Spinal stenosis of lumbar region 11404913 Active 2012 s/p lumbar [place] L4 MD [address], [place], [address] , [facility] 4 20:36:41 Sleep apnea 93852805 Active 2012 on CPAP MD [address], [place], [address] , [facility] 4 20:39:31 Gastroes ophageal reflux disease without esophagi tis 381682365 Completed 195908/12/2023 Removal Reason: resolved with surgical repair of HH MD [address], [place], [address] , [facility] 4 10:41:24 Family history of malignan t neoplasm of digestiv e organ 788309394 Active [address], [place], [address] , [facility] 4 20:37:03 Paresthe samir [id number] Completed 201412/01/2014 11/28/19 15 - Comments only - Erich Her MD - check B12 and folate Problem Code: R20.2; Problem Code Type: ICD-10; Not Available [facility] 3 05:53:48 Adult health examinat ion Active [address], [place], [address] , [facility] 4 20:33:34 Pre-surg ruben evaluati on Completed [...] Z01.818; Problem Code Type: ICD-10; Not Available [facility] 3 05:53:48 Localize d edema [id number] Completed 201501/29/2016 12/13/19 16 - Comments only - Erich Her MD - and some on left as well, will check BMP. Problem Code: R60.0; Problem Code Type: ICD-10; ERICH HER MD [facility], [place], [address] , 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 Nusrat esparza for removal. Problem Code: L72.3; Problem Code Type: ICD-10; Not Available [facility] 3 05:53:49 Chronic ulcer of foot [id number] Completed 201601/16/2017 12/18/19 17 - Comments only - Erich Her MD - Due to injury. This does appear to have some granulat ion tissue and to be healing. She is given a prescrip tion for Keflex to take only if erythema seems to be extendin g. Problem Code: L97.509; Problem Code Type: ICD-10; Not Available [facility] 3 05:53:49 Diarrhea [id number] Completed 201602/10/2017 02/05/20 17 - Comments only - Erich Her MD - [facility] over several months, we will collect stool for C. difficil e, Giardia, culture, and lactofer rin Problem Code: R19.7; Problem Code Type: ICD-10; ERICH HER MD [address], [place], [address] , 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 6 mm PT1NO E2P2 poistive , HER2 negative MD [address], [place], [address] , 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 4 14:36:02 Tachsrinivas lea 4648649 Completed 201811/25/2018 Problem Code: R00.0; Problem Code Type: ICD-10; Not Available [facility] 3 05:53:51 Pre-surg ruben evaluati on Completed 201811/25/2018 Problem Code: Z01.818; Problem Code Type: ICD-10; Not Available [facility] 3 05:53:51 Iron deficien cy anemia 23325539 Active 2019 elevated MCV: normal B12 2021, normal folate 2018 IV iron 2023 EGD 01/2022 paraesop hageal hernia (since repaired ) colo 03/2017 normal ERICH HER MD [facility] [address], [place], [address] , [facility], [facility]. 4 11:44:45 Lumbago with sciatica 464776756 Completed 201903/16/2020 02/24/20 20 - Comments only - Vy Pinon [employer] MONITOR - Likely aggravat ed by increase d [...] [facility] 3 05:53:52 Right side sciatica 37268381047 9101 Active 2019 EVIE HOOPER colin, [facility] 4 10:33:09 Left side sciatica 50186705555 9104 Active [address], [facility] [address] , [facility] 4 17:20:20 Diaphrag matic hernia 18150581 Completed 202108/11/2023 Removal Reason: s/p repair MD [address], [facility] [address] , [facility] 4 20:50:39 History of SARS-CoV -2 88634938764 2671598 Completed 202104/04/2022 03/21/20 22 - Comments only - Erich Her MD - testing is negative today in the office. Still some fatigue but otherwis e recoveri ng. Did get MAB. Already had covid bivalent booster prior to illness Problem Code: Z86.16; Problem Code Type: ICD-10; Not Available [facility] 3 05:53:53 Diarrhea 05054840 Completed 202104/18/2022 Problem Code: R19.7; Problem Code Type: ICD-10; MD [address], [facility] [address] , [facility] 4 21:03:02 Screenin g mammogra phy Completed 202208/11/[address], [facility] [address] , [facility] 4 20:36:56 Carpal tunnel syndrome of left wrist 21106600385 9102 Completed 202201/23/2023 Problem Code: G56.02; Problem Code Type: ICD-10; Not Available [facility] 4 05:37:46 Diarrhea 08606167 Active 2022 started colestip ol 01/2023 ERICH HER MD [address], [place], [address] , [facility]. 4 21:03:02 Carpal tunnel syndrome of right wrist 17231996873 9108 Completed 201803/19/2020 Problem Code: G56.01; Problem Code Type: ICD-10; Not Available [facility] 3 05:53:55 Pain of left knee joint 21454327429 4107 Completed 202107/30/2022 Problem Code: M25.562; Problem Code Type: ICD-10; Not Available [facility] 3 05:53:55 Hypersom korina 38341228 Completed 201311/27/2014 Problem Code: 780.54; Problem Code Type: ICD-9; Not Available [facility] 3 05:53:56 Screenin g for disorder Completed 201909/11/2021 Problem Code: Z13.9; Problem Code Type: ICD-10; Not Available [facility] 3 05:53:56 Anemia 699439485 Completed 201903/19/2020 Problem Code: D64.9; Problem Code Type: ICD-10; Not Available [facility] 3 05:53:56 Long-ter m current use of anticoag ulant 145683396 Completed 201709/01/2018 Problem Code: Z79.01; Problem Code Type: ICD-10; Not Available [facility] 3 05:53:57 Chronic rhinitis 19168085 Completed 202108/12/2021 Problem Code: J31.0; Problem Code Type: ICD-10; Not Available [facility] 3 05:53:57 Impaired fasting glycemia 842093609 Completed 201401/28/2023 Not Available [facility] 3 05:53:57 Fatigue 22181918 Completed 201903/19/2020 Problem Code: R53.83; Problem Code Type: ICD-10; Not Available [facility] 3 05:53:58 Upper respirat ory tract infectio n caused by Influenz a A 41291852165 9104 Completed 201707/02/2017 Problem Code: J09.x2; Problem Code Type: ICD-10; Not Available [facility] 3 05:53:59 Diarrhea 65101209 Completed 201709/01/2018 ERICH HER MD [facility] [address], [place], [address] [facility] 4 21:03:02 Acute upper respirat ory infectio n 81973398 Completed 202108/26/2021 Problem Code: J06.9; Problem Code Type: ICD-10; Not Available [facility] 3 05:53:59 Pain in right foot 44067567739 9107 Completed 202207/30/2022 Problem Code: M79.671; Problem Code Type: ICD-10; Not Available [facility] 3 05:54:00 Breast composit ion 496722921 Completed 201601/28/2023 Not Available [facility] 3 05:54:00 Changes in skin texture 455094126 Completed 202207/30/2022 Problem Code: R23.4; Problem Code Type: ICD-10; Not Available [facility] 3 05:54:01 Spasm 84966438 Completed 201603/23/2017 Problem Code: R25.2; Problem Code Type: ICD-10; EVIE shaw [facility] 4 10:33:28 Hyperten sive disorder 18897316 Completed 11/28/19 15 - Comments only - Erich Her MD - [facility] ed, no change in medicati ons Not Available [facility] 3 05:54:03 Arthralg ia of the ankle and/or foot 683902452 Completed 201501/30/2016 Problem Code: M25.571; Problem Code Type: ICD-10; Not Available [facility] 3 05:54:03 Dyspnea 480098011 Completed 201903/19/2020 Problem Code: R06.02; Problem Code Type: ICD-10; Danica Felix [facility] 4 14:39:47 Trigger finger of right hand 17846555048 680544 Completed 201803/19/2020 Problem Code: M65.341; Problem Code Type: ICD-10; Not Available [facility] 3 05:54:06 Cough 51899058 Completed 202108/12/2021 Problem Code: R05.1; Problem Code Type: ICD-10; Not Available [facility] 3 05:54:06 At risk - finding 312377564 Completed 201811/11/2018 Problem Code: Z91.89; Problem Code Type: ICD-10; Not Available [facility] 3 05:54:06 Cough 34924940 Completed 201706/15/2017 Problem Code: R05; Problem Code Type: ICD-10; Not Available [facility] 3 05:54:07 Preopera tive cardiova scular examinat ion Completed 202112/18/2021 Problem Code: Z01.810; Problem Code Type: ICD-10; Not Available [facility] 3 05:54:08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
--- OUTSIDE RECORDS SUMMARY | 2024-05-02 09:39 | XMS_ITS | Encounter Summary ---
Author Organization [facility] [place] [address] Care Team Providers Care Vocal Performer Name Role Phone Ana Her MD Primary Care Provider [phone] Encounter Details Date Type Department Care Team (Late st Contact Info) Description 03/10/2022 1:35 AM EST Ancillary Procedure Radiology Library [place] [address] Ana Her MD [address] [place] [address] [facility] [address] [place], [place] [id number] Social History Tobacco Use Types Packs/Day Years [...] CT Chest (03/10/2022 1:31 AM EST) Narrative [facility] - 03/10/2022 1:31 AM EST This exam is auto-finalizing. It's purpose is for storage only. Ana Her MD IM FILM LIBRARY ORD ERABLES [place], [place] documented in this encounter Visit Diagnoses Not on filedocumented in this encounter Care Teams Vocal Performer Relationship Specialty Start Date End Date Ana Her MD [facility] JAY HOGAN [facility] [address] [place] [address] PCP - General 07/29/13 documented as of this encounter
--- OUTSIDE RECORDS SUMMARY | 2024-05-02 09:39 | XMS_ITS | Encounter Summary ---
[place] [address] Care Team Providers Care Excavating Machine Operator Name Role Phone Ana Hre MD Primary Care Provider [phone] Encounter Details Date Type Department Care Team (Late st Contact Info) Description 10/23/2022 Telephone Mammography/[place] [phone] [place] Social History Tobacco Use Types [...] on filedocumented in this encounter Care Teams Excavating Machine Operator Relationship Specialty Start Date End Date Ana Her MD Ge[facility] [address] [address] [place] [address] PCP - General 07/29/13 documented as of this encounter
--- OUTSIDE RECORDS SUMMARY | 2024-05-02 09:39 | XMS_ITS | Clinical Summary ---
Author Organization [facility] [place] [address] Care Team Providers Care Engineer Process Name Role Phone Ana Her MD Primary Care Provider [phone] Allergies No known active allergies Medications Medication [...] eliquis and has been managed by [facility]. She has remained in [...] and ECG with Dr. Ana Her in [place] in January She will discuss ECHO results [...] - TT3 and FT4 nl - My RETAIL ROUTE SUPERVISOR colleague called and spoke with covering MD [...] history exists Medical Devices Implanted Type Area Equipment Maintenance Tech Device Identifier Shelf Expiration Date Model / Serial / Lot Breast Clip-02/26/20 17 Implanted: by Enzo Burkett MD (Quantity not on file) Breast Clip Left: Breast Bard - 0614 05/04/2019 [employer]ENOMARK ULTRACOR BREAST TISSUE MARKER ULTRASOUND ENHANCED BLANCA / / [id number] Description:BLANCA Procedures Procedure Name Priority Date/Time Associated [...] have questions please contact the health care rep that requested your imaging first. ? Jeanine Lobato STONE GLUER IMG MAMMO ORD ERABLES * DXA Central [...] BMD measurements and plots are available in EFortunePay under the imaging tab. Paper copies will be sent to providers without E-The [employer] Store access. If you have received this report without the data sheet and do not have access to ApiFix, please contact Radiology Hatch Supervisor at [phone] Thursday thru Thursday 8am-4pm. Thank you for letting us participate in the care of this patient. ??If you are a health care provider and have any questions regarding this report, please contact the number below. ??For patients who have questions please contact the health care rep that requested your imaging first. ? Electronically signed by: Nat Epperson MD, [facility] ([phone]), at 11/19/2020 1:09 PM Narrative 11/19/2020 1:09 [...] BMD measurements and plots are available in ETouchstormunder the imaging tab. Paper copies will be sent to providers without E- access.If you have received this report without the data sheet and do not haveaccess to E-, please contact Radiology Hatch Supervisor at [phone] Thursday thrriday 8am-4pm. Thank you for letting us participate in the care of this patient. If youare a health care provider and have any questions regarding this report,please contact the number below. For patients who have questions please contactthe health care rep that requested your imaging first. Ricky Lowry [...] Status decision made by: Patient Care Teams Engineer Process Relationship Specialty Start Date End Date Ana Her MD [facility] [address] [place] [address] PCP - General 07/29/13
--- OUTSIDE RECORDS SUMMARY | 2024-05-02 09:39 | XMS_ITS | Encounter Summary ---
Author Organization [facility] [place] [address] Care Team Providers Care Product Safety Compliance Leader Name Role Phone Ana Her MD Primary Care Provider [phone] Encounter Details Date Type Department Care Team (Latest Contact Info) Description 01/23/2022 12:15 PM EDT TH Visit (TeleHealth) [place] [address] Laura Will MD [facility] [place] [address] Paraesophageal hernia Social History Tobacco Use Types [...] her. She is followed by cardiology at [facility], and is on xarelto. Impression: Symptomatic paraesophageal [...] gangrene documented in this encounter Care Teams Product Safety Compliance Leader Relationship Specialty Start Date End Date Ana Her MD [address] [facility] [address] [place] [address] PCP - General 07/29/13 documented as of this encounter
--- OUTSIDE RECORDS SUMMARY | 2024-05-02 09:39 | XMS_ITS | Encounter Summary ---
Author Organization [facility] [place] [address] Care Team Providers Care Tire Room Supervisor Name Role Phone Ana Her MD Primary Care Provider [phone] Encounter Details Date Type Department Care Team (Late st Contact Info) Description 03/09/2022 Telephone [place] [address] Prakash Mendez MD [facility] [place] [address] Social History Tobacco Use Types Packs/Day Years [...] the mobile number listed in her chart ([phone]). Her other daughter answered the phone and reported that she had just dropped her off in the Emergency Department at [facility] and parked the car. She was walking back to the building to be with her. I reassured her that going to the Emergency Department seemed like a reasonable plan. I assured her that we are always happy to see her here at [facility] anytime and that they could call back anytime with further questions or concerns. This note will be routed to the provider mentioned above. Prakash Mendez MD documented in this encounter Plan of Treatment Not on file documented as of this encounter Visit Diagnoses Not on filedocumented in this encounter Care Teams Tire Room Supervisor Relationship Specialty Start Date End Date Ana Her MD [address] [place] [address] PCP - General 07/29/13 documented as of this encounter
--- OUTSIDE RECORDS SUMMARY | 2024-05-02 09:39 | XMS_ITS | Encounter Summary ---
Author Organization [facility] [place] [address] Care Team Providers Care Hot Air Furnace Installer And Repairer Name Role Phone Ana Her MD Primary Care Provider [phone] Encounter Details Date Type Department Care Team (Latest Contact Info) Description 04/03/2022 12:00 PM EST TH Visit (TeleHealth) [place] [address] Laura Will MD [facility] [place] [address] Status post repair of paraesophageal diaphragmatic hernia [...] status documented in this encounter Care Teams Hot Air Furnace Installer And Repairer Relationship Specialty Start Date End Date Ana Her MD [facility] [address] [place] [address] PCP - General 07/29/13 documented as of this encounter
--- OUTSIDE RECORDS SUMMARY | 2024-05-02 09:39 | XMS_ITS | Encounter Summary ---
[place] [address] Care Team Providers Care Disability Advocate Name Role Phone Ana Her MD Primary Care Provider [phone] Encounter Details Date Type Department Care Team (Late st Contact Info) Description 02/04/2022 12:00 PM EDT Notes [place] [address] Social History Tobacco Use Types Packs/Day Years [...] on filedocumented in this encounter Care Teams Disability Advocate Relationship Specialty Start Date End Date Ana Her MD [address] [place] [address] PCP - General 07/29/13 documented as of this encounter
--- OUTSIDE RECORDS SUMMARY | 2024-05-02 09:39 | XMS_ITS | Encounter Summary ---
[place] [address] Care Team Providers Care Carton Folder Name Role Phone Ana Her MD Primary Care Provider [phone] Encounter Details Date Type Department Care Team (Late st Contact Info) Description 02/03/2023 Telephone H[place]ology [place] [address] Maryam Barrett Social History Tobacco Use Types [...] on filedocumented in this encounter Care Teams Carton Folder Relationship Specialty Start Date End Date Ana Her MD [address] [place] [address] PCP - General 07/29/13 documented as of this encounter
--- OUTSIDE RECORDS SUMMARY | 2024-05-02 09:40 | XMS_ITS | Encounter Summary ---
Author Organization [facility] [place] [address] Care Team Providers Care Fabric Sourcer Name Role Phone Ana Her MD Primary Care Provider [phone] Encounter Details Date Type Department Care Team (Late st Contact Info) Description 09/03/2021 Ancillary Procedure Radiology Library at [facility] [place] [address] Laura Will MD [facility] [place] [address] Social History Tobacco Use Types Packs/Day Years [...] CT Chest (09/03/2021 12:00 AM EDT) Narrative [facility] - 11/28/2021 1:22 PM EDT This exam is auto-finalizing. It's purpose is for storage only. Laura Will MD IMG FILM LIBRARY OR DERABLES Performing Organization Address City/State/[facility] Co de Phone Number [place], [place] documented in this encounter Visit Diagnoses Not on filedocumented in this encounter Care Teams Fabric Sourcer Relationship Specialty Start Date End Date Ana Her MD [address] [facility] 1 [place] [address] PCP - General 07/29/13 documented as of this encounter
--- OUTSIDE RECORDS SUMMARY | 2024-05-02 09:40 | XMS_ITS | Encounter Summary ---
Author Organization [facility] [place] [address] Care Team Providers Care Cigar Making Machine Operator Name Role Phone Ana Her MD Primary Care Provider [phone] Encounter Details Date Type Department Care Team (Latest Contact Info) Description 01/08/2022 6:11 AM EDT - 01/08/2022 9:40 AM EDT Hospital En[place] [address] Laura Park MD [facility] [place] [address] Discharge Disposition: Home Social History Tobacco Use [...] a nurse in the Thoracic Clinic at [phone]. After hours or on weekends or holidays please call: [phone] and ask to speak to the Thoracic Physician front office java developer. Diet: You should follow a clear liquid [...] - 5pm): General Surgery and Bariatric Surgery [phone] Bariatric Surgeons: Drs. Park and John [phone] Technology Project Manager: [phone] Dietitians: [phone] Outside of regular business hours, including weekends and holidays: Ask for General Surgery resident front office java developer [phone] Please note, this call will be answered [...] of left breast of female, estrogen receptor imoitsbyV72.512, Z17.0 ??? Anemia D64.9 ??? Aortic valve [...] MD at [facility] MAIN OR ?? Cholecystectomy ?? [...] Park MD - 01/08/2022 7:48 AM EDT [facility] Operative Note Patient Name: Digna Olson : [id number] MR#: [id number] Case Date: 01/08/2022 Surgeon: Surgeon(s) and Role: [...] Info Order Time SPECIMEN TO PATHOLOGY Gastric Kay for H Pylori Hiatal hernia Gastric Kay for H Pylori excision 01/08/2022 8:15 AM [...] 8:14 AM EDT Upper GI Endoscopy, Diagnostic ([id number]) Yes 01/08/2022 7:40 AM EDT Hiatal hernia POCT GLUCOSE Routine 01/08/2022 6:33 AM EDT documented in this encounter Results * Specimen to Pathology (01/08/2022 8:15 AM EDT) AP Specimen 01/08/2022 8:15 AM EDT 01/08/2022 8:15 AM EDT Narrative [facility] - 01/08/2022 8:15 AM EDT Specimen requisition ordered. ??Separate Pathology report to follow Laura Park MD PATHOLOGY/CYTOLOGY ORDERABLES [facility] [place] [address] * Surgical Pathology Report (01/08/2022 8:14 AM EDT) Final Diagnosis [id number] ? Location: [facility]; A The signing pathologist has (i) examined the relevant preparation(s) for the specimen(s) and (ii) rendered or confirmed the diagnosis(es). . ?Surgical Pathology DIAGNOSIS A - Gastric ??Antrum for H Pylori, excision: - ??Antrum-type mucosa with reactive gastropathy. Electronically signed by: ?Umang Raymundo MD Verified: ??01/09/2022 16:36 ??Pathologist Performed at: ??-[facility] Dept. of Pathology, [place], [place] SPECIMEN(S) SUBMITTED A - Gastric ??Antrum for H Pylori, excision (1) CLINICAL INFORMATION Hiatal hernia SPECIMEN PROCESSING A - Labeled/Fixativ e: Gastric antrum for H. pylori, formalin. Quantity/Size: Single, 0.3 cm. Tissue Description: Soft, pink tissue. Sections/Proces sing: Submitted en toto ??in 1 cassette labeled A1. ??sns 01/09/2022 4:36 PM EDT [facility] GI Biopsy 01/08/2022 8:14 AM EDT 01/08/2022 8:14 AM EDT Laura Park MD PATHOLOGY/CYTOLOGY ORDERABLES [facility] [place] [address] * POCT Glucose (01/08/2022 6:33 AM EDT) Glucose, POC 120 65 - 199 mg/dL [facility] Comment: Supplemental ranges: <140 mg/dL before meals <180 mg/dL all other times of the day Blood 01/08/2022 6:33 AM EDT 01/08/2022 6:33 AM EDT Laura Park MD POINT [place] [address] documented in this encounter Visit Diagnoses Not on filedocumented in this encounter Active and Recently Administered Medications Care Teams Cigar Making Machine Operator Relationship Specialty Start Date End Date Ana Her MD [address] [place] [address] PCP - General 07/29/13 documented as of this encounter
--- OUTSIDE RECORDS SUMMARY | 2024-05-02 09:40 | XMS_ITS | Encounter Summary ---
Author Organization [facility] [place] [place] [address] Care Team Providers Care Assistant Site Manager Name Role Phone Ana Her MD Primary Care Provider [phone] Reason for Visit * Reason Comments Follow-up Encounter Details Date Type Department Care Team (Late st Contact Info) Description 10/23/2017 11:00 AM EDT Office Visit Hematology [place] [address] Mayra Page APRN [facility] [address] Malignant neoplasm of lower-outer quadrant of left [...] this encounter Progress Notes * Mayra Page, LION TRAINER - 10/23/2017 11:00 AM EDT Digna Olson [...] cancer cells with immunostaining) Stain intensity: Strong KS immunoreactivity: Positive (>90% cancer cells with immunostaining) [...] ??Excision with image-guided localization ?Lymph Node Sampling: ??[place] lymph node(s) ?Specimen Laterality: ??Left Tumor ?Histologic [...] ??DCIS not present in specimen Lymph Nodes ?[place] Lymph Nodes: [place] lymph node biopsy performed ?Number of [place] Nodes Examined: ??3 ?Number of Lymph Node(s) [...] positive documented in this encounter Care Teams Assistant Site Manager Relationship Specialty Start Date End Date Ana Her MD [address] [place] [address] PCP - General 07/29/13 documented as of this encounter
--- OUTSIDE RECORDS SUMMARY | 2024-05-02 09:40 | XMS_ITS | Encounter Summary ---
[place] [address] Care Team Providers Care Laundry Machine Tender Name Role Phone Ana Her MD Primary Care Provider [phone] Encounter Details Date Type Department Care Team (Late st Contact Info) Description 11/09/2018 2:45 PM EDT Office Visit Hematology [place] [address] Ricky Lowry MD Malignant neoplasm of lower-outer [...] ??Excision with image-guided localization ?Lymph Node Sampling: ??[place] lymph node(s) ?Specimen Laterality: ??Left Tumor ?Histologic [...] ??DCIS not present in specimen Lymph Nodes ?[place] Lymph Nodes: [place] lymph node biopsy performed ?Number of [place] Nodes Examined: ??3 ?Number of Lymph Node(s) [...] Spinal stenosis > A Fib. Cardiology at [facility]. S/P successful cardioversion May 2018. [...] laterality documented in this encounter Care Teams Laundry Machine Tender Relationship Specialty Start Date End Date Ana Her MD [address] [place] [address] PCP - General 07/29/13 documented as of this encounter
--- OUTSIDE RECORDS SUMMARY | 2024-05-02 09:40 | XMS_ITS | Encounter Summary ---
[place] [address] Care Team Providers Care Medicare Biller Name Role Phone Ana Her MD Primary Care Provider [phone] Encounter Details Date Type Department Care Team (Late st Contact Info) Description 04/09/2017 Abstract Radiation Oncology at [address] [phone] Maria A Antonio, RN Social History Tobacco [...] on filedocumented in this encounter Care Teams Medicare Biller Relationship Specialty Start Date End Date Ana Her MD [address] [place] [address] PCP - General 07/29/13 documented as of this encounter
--- OUTSIDE RECORDS SUMMARY | 2024-05-02 09:40 | XMS_ITS | Encounter Summary ---
Author Organization [facility] [place] [address] Care Team Providers Care Employment Services Director Name Role Phone Ana Her MD Primary Care Provider [phone] Encounter Details Date Type Department Care Team (Latest Contact Info) Description 03/30/2017 8:30 AM [facility] Hospital En[place] [address] Malika Chen MD [facility] [place] [address] Malignant neoplasm of upper-outer quadrant of left [...] mg documented in this encounter Care Teams Employment Services Director Relationship Specialty Start Date End Date Ana Her MD [address] [place] [address] PCP - General 07/29/13 documented as of this encounter
--- OUTSIDE RECORDS SUMMARY | 2024-05-02 09:40 | XMS_ITS | Encounter Summary ---
Author Organization [facility] [place] [address] Care Team Providers Care Remediation Technician Name Role Phone Ana Her MD Primary Care Provider [phone] Encounter Details Date Type Department Care Team (Late st Contact Info) Description 05/10/2018 1:10 PM EST - 05/10/2018 11:59 PM EST Hospital Encounter Mammography/[place] [address] Hiral Padgett, WENDY Encounter for screening mammogram [...] cancer documented in this encounter Care Teams Remediation Technician Relationship Specialty Start Date End Date Ana Her MD [address] [place] [address] PCP - General 07/29/13 documented as of this encounter
--- OUTSIDE RECORDS SUMMARY | 2024-05-02 09:40 | XMS_ITS | Encounter Summary ---
Author Organization [place] [address] Care Team Providers Care Entry Level Paralegal Name Role Phone Ana Her MD Primary Care Provider [phone] Encounter Details Date Type Department Care Team (Latest Contact Info) Description 05/22/2020 10:46 AM EST - 05/22/2020 11:59 PM [facility] Hospital Encounter Mammography/[place] [address] Jeanine Lobato APRN [facility] [place] [address] Malignant neoplasm of lower-outer quadrant of left [...] mammogram documented in this encounter Care Teams Entry Level Paralegal Relationship Specialty Start Date End Date Ana Her MD [facility] [address] [facility] 1 [place] [address] PCP - General 07/29/13 documented as of this encounter
--- OUTSIDE RECORDS SUMMARY | 2024-05-02 09:40 | XMS_ITS | Encounter Summary ---
Author Organization [facility] [place] [address] Care Team Providers Care Enterprise Account Manager Name Role Phone Ana Her MD Primary Care Provider [phone] Encounter Details Date Type Department Care Team (Latest Contact Info) Description 03/30/2017 8:30 AM [facility] Hospital En[place] [address] Malika Chen MD [facility] GENERAL [place] [address] Malignant neoplasm of upper-outer quadrant of left [...] documented in this encounter Results * Mammo [place] Node Injection (03/30/2017 9:01 AM EST) Anatomical [...] mCi documented in this encounter Care Teams Enterprise Account Manager Relationship Specialty Start Date End Date Ana Her MD [address] [place] [address] PCP - General 07/29/13 documented as of this encounter
--- OUTSIDE RECORDS SUMMARY | 2024-05-02 09:40 | XMS_ITS | Encounter Summary ---
[place] [address] Care Team Providers Care Wire Setter Name Role Phone Ana Her MD Primary Care Provider [phone] Reason for Visit * Reason Comments Follow-up Encounter Details Date Type Department Care Team (Late st Contact Info) Description 06/11/2021 11:00 AM EST Office Visit Hematology [place] [address] Laura Joaquin PA 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, estrogen receptor positive; nursing home current 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 Social [...] ??Excision with image-guided localization ?Lymph Node Sampling: ??[place] lymph node(s) ?Specimen Laterality: ??Left Tumor ?Histologic [...] ??DCIS not present in specimen Lymph Nodes ?[place] Lymph Nodes: [place] lymph node biopsy performed ?Number of [place] Nodes Examined: ??3 ?Number of Lymph Node(s) [...] Spinal stenosis > A Fib. Cardiology at [facility]. S/P successful cardioversion May 2018. DEXA scan [...] on RA Breasts: deferred (examined by surgery TALENT ASSISTANT today) Neuro: grossly nonfocal. Results: Last DXA [...] Cancers [facility] Pager [phone] No future appointments. documented in this encounter Plan of Treatment Not on file documented as of this encounter Visit Diagnoses Diagnosis 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, estrogen receptor positive nursing home current 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 Use 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s documented in this encounter Care Teams Wire Setter Relationship Specialty Start Date End Date Ana Her MD [address] [place] [address] PCP - General 07/29/13 documented as of this encounter
--- OUTSIDE RECORDS SUMMARY | 2024-05-02 09:40 | XMS_ITS | Encounter Summary ---
Author Organization [facility] [place] [address] Care Team Providers Care Nc Machinist Name Role Phone Ana Her MD Primary Care Provider [phone] Reason for Visit * Consultation (Routine) - Closed Specialty Diagnoses / Procedures Referred By Christiano hackett Referred To Contact General Surgery Diagnoses Hiatal hernia Ana Her MD [address] [place] [address] [facility] [address] [place] [address] Referral ID Status Reason Start Date Expiration Date V isits Requested Visits Authorized [id number] Closed Consult, Test & Treat 09/23/2021 09/23/2022 6 6 Encounter Details Date Type Department Care Team (Latest Contact Info) Description 12/05/2021 3:00 PM EDT Office Visit [place] [address] Laura Will MD [facility] [place] [address] Paraesophageal hernia Social History Tobacco [...] of left breast of female, estrogen receptor ntrdxycpF49.512, Z17.0 ??? Anemia D64.9 ??? Aortic valve [...] by Malika Chen MD at [facility] MAIN OR ??? PRO INTRAOP SENTINEL LYMPH ID W/DYE INJECTION Left 03/30/2017 INTRAOPERATIVE ID (MAPPING) SENTINEL LYMPH NODE,INCLUDES INJECTION (WRVU 2.5) performed by Malika Chen MD at [facility] MAIN OR ??? PRO MASTECTOMY PARTIAL Left 03/30/2017 MASTECTOMY PARTIAL (WRVU 10.13) performed by Malika Chen MD at [facility] MAIN OR Cholecystectomy Medications: [...] gangrene documented in this encounter Care Teams Nc Machinist Relationship Specialty Start Date End Date Ana Her MD [address] [place] [address] PCP - General 07/29/13 documented as of this encounter
--- OUTSIDE RECORDS SUMMARY | 2024-05-02 09:40 | XMS_ITS | Encounter Summary ---
[place] [address] Care Team Providers Care Certified Mortician Name Role Phone Ana Her MD Primary Care Provider [phone] Reason for Visit * Reason Comments Schedule Office Case Encounter Details Date Type Department Care Team (Late st Contact Info) Description 04/23/2017 2:00 PM EST Office Visit Hematology [place] [address] Ricky Lowry MD Malignant neoplasm of lower-outer [...] ??Excision with image-guided localization ?Lymph Node Sampling: ??[place] lymph node(s) ?Specimen Laterality: ??Left Tumor ?Histologic [...] ??DCIS not present in specimen Lymph Nodes ?[place] Lymph Nodes: [place] lymph node biopsy performed ?Number of [place] Nodes Examined: ??3 ?Number of Lymph Node(s) [...] DEXA scan was in this year at [facility]. There is no history of thromboembolic [...] positive documented in this encounter Care Teams Certified Mortician Relationship Specialty Start Date End Date Ana Her MD [address] [place] [address] PCP - General 07/29/13 documented as of this encounter
--- OUTSIDE RECORDS SUMMARY | 2024-05-02 09:40 | XMS_ITS | Encounter Summary ---
Author Organization [facility] [place] [address] Care Team Providers Care Development Specialist Name Role Phone Ana Her MD Primary Care Provider [phone] 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 * Diagnostic Test (Routine) - Closed Specialty Diagnoses / Procedures Referred By Contac t Referred To Contact Radiology Diagnoses 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, estrogen receptor positive Osteopenia of neck of femur, unspecified laterality custodial current 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 Procedures DXA Central-Spine, Hip, And/Or Whole Body (Generic) Ricky Lowry MD [facility] HEMATOLOGY/[place] [address] [facility] Rad Xray [address] [place] [address] [place] [phone] Referral ID Status Reason Start Date Expiration Date V isits Requested Visits Authorized [id number] Closed Specialty Service Requested 05/10/2018 05/10/2019 1 [...] And/Or Whole Body (Generic) Ricky Lowry MD [facility] HEMATOLOGY/[place] [address] [facility] Rad Xray [address] [place] [address] Dr Al[place], [place] [address] Referral ID Status Reason Start Date Expiration Date V isits Requested Visits Authorized [id number] Closed Specialty Service Requested 05/10/2018 05/10/2019 1 1 Encounter Details Date Type Department Care Team (Latest Contact Info) Description 11/09/2018 1:03 PM EDT - 11/09/2018 11:59 PM EDT Hospital Encounter XRay at [address] [place] [address] Ricky Lowry MD 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, estrogen receptor positive; Osteopenia of neck of femur, unspecified laterality; 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 Paper copies will be sent to providers without E-DH access. If you have received this report without the data sheet and do not have access to [facility], please contact Radiology Structural Metal Worker at [phone] Thursday thru Thursday 8am-4pm. Thank you for [...] BMD measurements and plots are available in [employer] the imaging tab. Paper copies will be sent to providers without [employer] access.If you have received this report without the data sheet and do not haveaccess to [employer], please contact Radiology Structural Metal Worker at [phone] Thursday thruFriday 8am-4pm. Thank you for letting us participate in the care of this patient. Forquestions regarding this report, please contact the number below. Electronically signed by: Khushi Hughes [facility] [place] ([phone]),at 11/10/2018 10:55 AM Ricky Lowry MD IMG DEXA ORDERABLES documented in this encounter Visit Diagnoses Diagnosis 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, estrogen receptor positive Osteopenia of neck of femur, unspecified laterality custodial current 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 Use 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s documented in this encounter Care Teams Development Specialist Relationship Specialty Start Date End Date Ana Her MD [facility] [address] [facility] [address] [place] [address] PCP - General 07/29/13 documented as of this encounter
--- OUTSIDE RECORDS SUMMARY | 2024-05-02 09:40 | XMS_ITS | Encounter Summary ---
[place] [address] Care Team Providers Care Layer Out Plate Glass Name Role Phone Ana Her MD Primary Care Provider [phone] Encounter Details Date Type Department Care Team (Late st Contact Info) Description 04/05/2018 Telephone [place] [phone] Adrianna Jones Social History Tobacco Use Types [...] Padgett. Patient advises she is admitted at [facility] for afib and is pending procedure etc. Patient will call to reschedule once she is discharged home. documented in this encounter Plan of Treatment Not on file documented as of this encounter Visit Diagnoses Not on filedocumented in this encounter Care Teams Layer Out Plate Glass Relationship Specialty Start Date End Date Ana Her MD [address] [place] [address] PCP - General 07/29/13 documented as of this encounter
--- OUTSIDE RECORDS SUMMARY | 2024-05-02 09:40 | XMS_ITS | Encounter Summary ---
Author Organization [facility] [place] [address] Care Team Providers Care Event Host Name Role Phone Ana Her MD Primary Care Provider [phone] Reason for Visit * Reason Comments Advice Only BBR * Consultation (Routine) - Closed Specialty Diagnoses / Procedures Referred By Christiano hackett Referred To Contact Plastic Surgery Diagnoses 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, estrogen receptor positive Macromastia Jeanine Lobato APRN [facility] [place] [address] [facility] Plastic Surg [address] [place] [address] Referral ID Status Reason Start Date Expiration Date V isits Requested Visits Authorized [id number] Closed Consult, Test & Treat 06/11/2021 06/11/2022 1 1 Encounter Details Date Type Department Care Team (Late st Contact Info) Description 07/09/2021 8:30 AM EST Office [place] [address] Med Hudson MD [facility] [place] [address] Macromastia Social History Tobacco Use [...] physical with your primary care doctor and Upholsterer Helper clearance Two Weeks prior to Surgery Do [...] For questions pertaining to your surgical date [phone] For nursing related questions [phone] On weekends, holidays or after office hours: Call [phone] and ask the welding machine operator plasma arc to page the Plastic Surgery Resident extension forester. documented in this encounter Progress Notes * [...] and was normal. This was performed at [facility]. She has completed a breast specific questionnaire: [...] None of the time Conservative Therapy Treatments: [facility] PLASTICS CONSERVATIVE THERAPY TREATMENTS 07/09/2021 Physical [...] by Malika Chen MD at [facility] MAIN OR ??? PRO INTRAOP SENTINEL LYMPH ID W/DYE INJECTION Left 03/30/2017 INTRAOPERATIVE ID (MAPPING) SENTINEL LYMPH NODE,INCLUDES INJECTION (WRVU 2.5) performed by Malika Chen MD at [facility] MAIN OR ??? PRO MASTECTOMY PARTIAL Left 03/30/2017 MASTECTOMY PARTIAL (WRVU 10.13) performed by Malika Chen MD at [facility] MAIN OR Family History Problem [...] surgery is best done at a realistic residential stable weight. We talked about the outpatient [...] revisions for scarring or asymmetry.) Garcia or [place] Pattern Incision: More scarring on breast, but [...] Timeframe: Elective Procedure: Bilateral breast reduction CPT: 60962 Surgical Technique: Garcia, Pedicle Surgical site: Breasts Side: Bilateral Anesthesia: General Follow up: 1 day for drain removal; 7-10 days for HCK PAT: H+P PCP, Cardiac clearance. Need to discontinue blood thinners pre-op? Xarelto documented in this encounter Plan of Treatment Not on file documented as of this encounter Visit Diagnoses Diagnosis Macromastia Hypertrophy of breast documented in this encounter Care Teams Event Host Relationship Specialty Start Date End Date Ana Her MD [address] [place] [address] PCP - General 07/29/13 documented as of this encounter
--- OUTSIDE RECORDS SUMMARY | 2024-05-02 09:40 | XMS_ITS | Encounter Summary ---
[place] [address] Care Team Providers Care Cloth Tester Quality Name Role Phone Ana Her MD Primary Care Provider [phone] Encounter Details Date Type Department Care Team (Late st Contact Info) Description 05/19/2017 Telephone Hematology [place] [phone] Sandy Chapman Social History Tobacco Use Types [...] on filedocumented in this encounter Care Teams Cloth Tester Quality Relationship Specialty Start Date End Date Ana Her MD [address] [place] [address] PCP - General 07/29/13 documented as of this encounter
--- OUTSIDE RECORDS SUMMARY | 2024-05-02 09:40 | XMS_ITS | Encounter Summary ---
Author Organization [facility] [place] [address] Care Team Providers Care Loop Sewer Name Role Phone Ana Her MD Primary Care Provider [phone] Encounter Details Date Type Department Care Team (Late st Contact Info) Description 03/30/2017 Notes [place] [address] January Ward MSW Social History Tobacco Use [...] was recently diagnosed with invasive mucinous carcinoma. [facility] attempted to meet with pt in Same Day surgery this morning but she was still in radiology. I spoke with her ex-, Keith, who states she will be staying with him tondenise. Their granddaughters are traveling from [place] and plan to accompany pt to see her fire investigator at [facility] tomorrow. Pt has been followed by this physician for her cardiac problems. [facility] will continue to provide support and resources to pt. documented in this encounter Plan of Treatment Not on file documented as of this encounter Visit Diagnoses Not on filedocumented in this encounter Care Teams Loop Sewer Relationship Specialty Start Date End Date Ana Her MD [address] [facility] 1 [place] [address] PCP - General 07/29/13 documented as of this encounter
--- OUTSIDE RECORDS SUMMARY | 2024-05-02 09:40 | XMS_ITS | Encounter Summary ---
[place] [address] Care Team Providers Care Onboarding Specialist Name Role Phone Ana Her MD Primary Care Provider Encounter Details Date Type Department Care Team (Late st Contact Info) Description 01/08/2022 7:30 AM EDT - 01/08/2022 8:40 AM EDT Surgery [place] [phone] Laura Park MD [facility] [place] [address] EGD, UPPER GI ENDOSCOPY (WRVU 2.09) Social [...] a nurse in the Thoracic Clinic at [phone]. After hours or on weekends or holidays please call: [phone] and ask to speak to the Thoracic Physician technical solutions engineer. Diet: You should follow a clear liquid [...] - 5pm): General Surgery and Bariatric Surgery [phone] Bariatric Surgeons: Drs. Park and John [phone] Fuse Cup Expander: [phone] Dietitians: [phone] Outside of regular business hours, including weekends and holidays: Ask for General Surgery resident technical solutions engineer [phone] Please note, this call will be answered [...] of left breast of female, estrogen receptor [id number], Z17.0 ??? Anemia D64.9 ??? Aortic valve [...] Operative Note Patient Name: Digna Olson : [id number] MR#: [id number] Case Date: 01/08/2022 Surgeon: Surgeon(s) and Role: [...] 8:14 AM EDT Upper GI Endoscopy, Diagnostic (72308) Yes 01/08/2022 7:40 AM EDT Hiatal hernia POCT GLUCOSE Routine 01/08/2022 6:33 AM EDT documented in this encounter Results * Specimen to Pathology (01/08/2022 8:15 AM EDT) AP Specimen 01/08/2022 8:15 AM EDT 01/08/2022 8:15 AM EDT Narrative [facility] - 01/08/2022 8:15 AM EDT Specimen requisition ordered. ??Separate Pathology report to follow Laura Park MD PATHOLOGY/CYTOLOGY ORDERABLES [facility] [place] [address] * Surgical Pathology Report (01/08/2022 8:14 AM EDT) Final Diagnosis [id number] ? Location: SDP; SD36; A The signing pathologist has (i) examined the relevant preparation(s) for the specimen(s) and (ii) rendered or confirmed the diagnosis(es). . ?Surgical Pathology DIAGNOSIS A - Gastric ??Antrum for H Pylori, excision: - ??Antrum-type mucosa with reactive gastropathy. Electronically signed by: ?Umang Raymundo MD Verified: ??01/09/2022 16:36 ??Pathologist Performed at: ??-[facility] Dept. [place], [place], [place] SPECIMEN(S) SUBMITTED A - Gastric ??Antrum [...] Park MD PATHOLOGY/CYTOLOGY ORDERABLES Performing Organization Address City/State/[facility] Co de Phone Number [facility] [place] [address] * POCT Glucose (01/08/2022 6:33 AM EDT) Glucose, POC 120 65 - 199 mg/dL [facility] Comment: Supplemental ranges: <140 mg/dL before meals <180 mg/dL all other times of the day Blood 01/08/2022 6:33 AM EDT 01/08/2022 6:33 AM EDT Laura Park MD POINT [place] [address] documented in this encounter Visit Diagnoses Not on filedocumented in this encounter Active and Recently Administered Medications Care Teams Onboarding Specialist Relationship Specialty Start Date End Date Ana Her MD [address] [facility] 1 [place] [address] PCP - General 07/29/13 documented as of this encounter
--- OUTSIDE RECORDS SUMMARY | 2024-05-02 09:40 | XMS_ITS | Encounter Summary ---
Author Organization [facility] Address [facility] [place] [address] Care Team Providers Care Director Group Sales Name Role Phone Ana Her MD Primary Care Provider [phone] Reason for Visit * Reason Comments Radiation Consult * Consultation (Routine) - Closed Specialty Diagnoses / Procedures Referred By Christiano hackett Referred To Contact Radiation Oncology Diagnoses Breast cancer Malika Chen MD [facility] [place] [address] St[address] Rad Onc Office [address] [place] [phone] Referral ID Status Reason Start Date Expiration Date Visits Re quested Visits Authorized [id number] Closed 03/17/2017 03/17/2018 1 1 Encounter Details Date Type Department Care Team (Late st Contact Info) Description 04/13/2017 10:00 AM EST Office Visit Radiation Oncology at [address] [address] Faye Velez MD [facility] [place] [address] Malignant neoplasm of left female breast, unspecified [...] to have further xrt if recurrence. Dr. Vleez updated. Referrals/Interventions: RADIATION SPECIFIC TEACHING: NCI Radiation [...] cm from nipple. 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 03/03/[address] [...] she is being evaluated for afib @ [facility] W. 04/15/17; has been wearing [...] 6.43) performed by Malika Chen MD at [facility] MAIN OR ??? PRO INTRAOP SENTINEL LYMPH ID W/DYE INJECTION Left 03/30/2017 INTRAOPERATIVE ID (MAPPING) SENTINEL LYMPH NODE,INCLUDES INJECTION (WRVU 2.5) performed by Malika Chen MD at [facility] MAIN OR ??? PRO MASTECTOMY, PARTIAL Left 03/30/2017 MASTECTOMY PARTIAL (WRVU 10.13) performed by Malika Chen MD at [facility] MAIN OR Your Medications These changes are [...] A: Breast ca, L, mucinous, gr 2, ER+GA+, Her2 neg, s/p lumpectomy & SNB, pT1b [...] treated breast; cough; shortness of breath; tiredness. Late/senior care side effects to breast discussed include: Treated [...] breast documented in this encounter Care Teams Director Group Sales Relationship Specialty Start Date End Date Ana Her MD [address] [place] [address] PCP - General 07/29/13 documented as of this encounter
--- OUTSIDE RECORDS SUMMARY | 2024-05-02 09:40 | XMS_ITS | Encounter Summary ---
Author Organization [facility] [place] [address] Care Team Providers Care Desktop Support Technician Name Role Phone Ana Her MD Primary Care Provider [phone] Reason for Visit * Reason Comments Follow-up Encounter Details Date Type Department Care Team (Late st Contact Info) Description 05/31/2019 11:45 AM EST Office Visit Hematology [place] [phone] Ricky Lowry MD Malignant neoplasm of lower-outer [...] ??Excision with image-guided localization ?Lymph Node Sampling: ??[place] lymph node(s) ?Specimen Laterality: ??Left Tumor ?Histologic [...] ??DCIS not present in specimen Lymph Nodes ?[place] Lymph Nodes: [place] lymph node biopsy performed ?Number of [place] Nodes Examined: ??3 ?Number of Lymph Node(s) [...] positive documented in this encounter Care Teams Desktop Support Technician Relationship Specialty Start Date End Date Ana Her MD [facility] [address] [facility] 1 [place] [address] PCP - General 07/29/13 documented as of this encounter
--- OUTSIDE RECORDS SUMMARY | 2024-05-02 09:40 | XMS_ITS | Encounter Summary ---
Author Organization [facility] [place] [address] Care Team Providers Care Commander Police Reserves Name Role Phone Ana Her MD Primary Care Provider [phone] Encounter Details Date Type Department Care Team (Latest Contact Info) Description 06/11/2021 8:41 AM EST - 06/11/2021 11:[address] [facility] Hospital Encounter Mammography/[place] [phone] Jeanine Lobato APRN [facility] [place] [address] Malignant neoplasm of lower-outer quadrant of left [...] Take 40 mg by mouth daily. omega 5-jzd-rok-fish-turm salty 417 mg-120 mg- 276 mg-600 mg [...] who have questions please contact the health childbirth and infant care teacher that requested your imaging first. ? Jeanine Lobato STRUCTURAL IRONWORKER IMG MAMMO ORD ERABLES documented in this encounter Visit Diagnoses Diagnosis 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, estrogen receptor positive Breast cancer screening by mammogram documented in this encounter Care Teams Commander Police Reserves Relationship Specialty Start Date End Date Ana Her MD [address] [place] [address] PCP - General 07/29/13 documented as of this encounter
--- OUTSIDE RECORDS SUMMARY | 2024-05-02 09:40 | XMS_ITS | Encounter Summary ---
[place] [address] Care Team Providers Care Slip Operator Name Role Phone Ana Her MD Primary Care Provider [phone] Encounter Details Date Type Department Care Team (Late st Contact Info) Description 11/01/2021 Telephone [place] [phone] Chelsie Lauren Social History Tobacco Use Types [...] on filedocumented in this encounter Care Teams Slip Operator Relationship Specialty Start Date End Date Ana Her MD [address] [place] [address] PCP - General 07/29/13 documented as of this encounter
--- OUTSIDE RECORDS SUMMARY | 2024-05-02 09:40 | XMS_ITS | Encounter Summary ---
Author Organization [facility] [place] [address] Care Team Providers Care Whiskey Proof Reader Name Role Phone Ana Her MD Primary Care Provider [phone] Encounter Details Date Type Department Care Team (Late st Contact Info) Description 05/31/2019 1:00 PM EST Office [place] [address] Jeanine Lobato BUSINESS OFFICE DIRECTOR [facility] [place] [address] Encounter for follow-up surveillance of breast cancer; [...] was obtained which revealed IDC which is ER/OR+, Her2-. She hasno known breast masses, no adenopathy, no nipple discharge. 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 Jeanine Lobato APRN Surgical Oncology P [phone] F [phone] [facility] documented in this encounter [...] mammogram documented in this encounter Care Teams Whiskey Proof Reader Relationship Specialty Start Date End Date Ana Her MD [facility] [address] [facility] 1 [place] [address] PCP - General 07/29/13 documented as of this encounter
--- OUTSIDE RECORDS SUMMARY | 2024-05-02 09:40 | XMS_ITS | Encounter Summary ---
[place] [address] Care Team Providers Care Used Car Salesperson Name Role Phone Ana Her MD Primary Care Provider [phone] Reason for Visit * Reason Comments Follow-up Encounter Details Date Type Department Care Team (Late st Contact Info) Description 11/15/2020 4:00 PM EDT Office Visit [place] [phone] Laura Joaquin PA Malignant neoplasm of lower-outer [...] cancer cells with immunostaining) Stain intensity: Strong [place] immunoreactivity: Positive (>90% cancer cells with immunostaining) [...] ??Excision with image-guided localization ?Lymph Node Sampling: ??[place] lymph node(s) ?Specimen Laterality: ??Left Tumor ?Histologic [...] ??DCIS not present in specimen Lymph Nodes ?[place] Lymph Nodes: [place] lymph node biopsy performed ?Number of [place] Nodes Examined: ??3 ?Number of Lymph Node(s) [...] Medical Oncology - Breast & GI Cancers [facility] Pager - [phone] documented in this encounter Plan of Treatment Not on file documented as of this encounter Visit Diagnoses Diagnosis 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, estrogen receptor positive documented in this encounter Care Teams Used Car Salesperson Relationship Specialty Start Date End Date Ana Her MD [address] [place] [address] PCP - General 07/29/13 documented as of this encounter
--- OUTSIDE RECORDS SUMMARY | 2024-05-02 09:40 | XMS_ITS | Encounter Summary ---
[place] [address] Care Team Providers Care Inventory Control Specialist Name Role Phone Ana Her MD Primary Care Provider Reason for Visit * Reason Comments Follow-up Encounter Details Date Type Department Care Team (Late st Contact Info) Description 11/29/2019 2:45 PM EDT Office Visit [place] [phone] Ricky Lowry MD Malignant neoplasm of lower-outer [...] ??Excision with image-guided localization ?Lymph Node Sampling: ??[place] lymph node(s) ?Specimen Laterality: ??Left Tumor ?Histologic [...] ??DCIS not present in specimen Lymph Nodes ?[place] Lymph Nodes: [place] lymph node biopsy performed ?Number of [place] Nodes Examined: ??3 ?Number of Lymph Node(s) [...] stenosis > A Fib. Cardiology [place] [facility]. S/P successful cardioversion May 2018. DEXA scan [...] positive documented in this encounter Care Teams Inventory Control Specialist Relationship Specialty Start Date End Date Ana Her MD [address] [place] [address] PCP - General 07/29/13 documented as of this encounter
--- OUTSIDE RECORDS SUMMARY | 2024-05-02 09:40 | XMS_ITS | Encounter Summary ---
[place] [address] Care Team Providers Care District Operations Manager Name Role Phone Ana Her MD Primary Care Provider [phone] 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 * Consultation (Routine) - Closed Specialty Diagnoses / Procedures Referred By Christiano hackett Referred To Contact Plastic Surgery Diagnoses 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, estrogen receptor positive Macromastia Jeanine Lobato APRN [facility] [place] [address] [facility] [place] [place] [address] [address] Referral ID Status Reason Start Date Expiration Date V isits Requested Visits Authorized [id number] Closed Consult, Test & Treat 06/11/2021 06/11/2022 1 1 Encounter Details Date Type Department Care Team (Late st Contact Info) Description 06/11/2021 10:00 AM EST Office Visit [place] [address] [facility] [place] [address] Encounter for follow-up surveillance of [...] this encounter Progress Notes * Jeanine Lobato, CREEL OPERATOR - 06/11/2021 10:00 AM EST Images [...] was obtained which revealed IDC which is ER/W[place] positive, Her2 negative. Alma Delia opted against [...] mm Grade Intermediate Margins Negative ER Positive [place] Positive HER-2 Negative OncotypeDx Recurrence Score N/A [...] to speak almost daily. He lives in [place] and is beginning to show early signs [...] situation. Results: Imaging performed (bilateral mammogram) at [facility] today shows no evidence of malignancy, BIRADS [...] free apps for your cell phone from [employer] ([employer]) and [employer] ([employer]). All questions were answered to the patient's satisfaction and they state understanding and agreement with today's treatment plan. They are encouraged to follow up sooner if they develop any new or concerning symptoms. Jeanine Lobato APRN Surgical Oncology P [phone] F [phone] [facility] documented in this encounter Plan of [...] breast documented in this encounter Care Teams District Operations Manager Relationship Specialty Start Date End Date Ana Her MD [address] [place] [address] PCP - General 07/29/13 documented as of this encounter
--- OUTSIDE RECORDS SUMMARY | 2024-05-02 09:40 | XMS_ITS | Encounter Summary ---
Author Organization [place] [address] Care Team Providers Care Clerical Support Name Role Phone Ana Her MD Primary Care Provider [phone] Encounter Details Date Type Department Care Team (Latest Contact Info) Description 05/31/2019 10:16 AM EST - 05/31/2019 11:59 PM EST Hospital Encounter Mammography/[place] [phone] Jeanine Lobato APRN [facility] [place] [address] History of breast cancer Discharge Disposition: Home [...] BIRADS CATEGORY 2: Benign findings. * ??[employer] and The Society of [...] breast documented in this encounter Care Teams Clerical Support Relationship Specialty Start Date End Date Ana Her MD [address] [place] [address] PCP - General 07/29/13 documented as of this encounter
--- OUTSIDE RECORDS SUMMARY | 2024-05-02 09:40 | XMS_ITS | Encounter Summary ---
[place] [address] Care Team Providers Care Software Solutions Architect Name Role Phone Ana Her MD Primary Care Provider [phone] 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 * Diagnostic Test (Routine) - Closed Specialty Diagnoses / Procedures Referred By Christiano hackett Referred To Contact Radiology Diagnoses 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, estrogen receptor positive Osteopenia of neck of femur, unspecified laterality halfway current 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 Procedures DXA Central-Spine, Hip, And/Or Whole Body (Generic) Ricky Lowry MD [facility] DR HEMATOLOGY/[place] [address] [facility] Rad Xray [address] [place] [address] [place] [address] Referral ID Status Reason Start Date Expiration Date V isits Requested Visits Authorized [id number] Closed Specialty Service Requested 05/10/2018 05/10/2019 1 1 Reason for Visit * Reason Comments Follow-up Encounter Details Date Type Department Care Team (Late st Contact Info) Description 05/10/2018 2:45 PM EST Office Visit Hematology and Oncology at [facility] [place] [place] [address] Ricky Lowry MD 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, estrogen receptor positive; Osteopenia of neck of femur, unspecified laterality; halfway current 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 Social History [...] ??Excision with image-guided localization ?Lymph Node Sampling: ??[place] lymph node(s) ?Specimen Laterality: ??Left Tumor ?Histologic [...] ??DCIS not present in specimen Lymph Nodes ?[place] Lymph Nodes: [place] lymph node biopsy performed ?Number of [place] Nodes Examined: ??3 ?Number of Lymph Node(s) [...] Spinal stenosis > A Fib. Cardiology at [facility]. Most recent DEXA scan was last year at [facility]. There is no history of [...] is planned for later this week (at [facility] No new problems with VELEZ, diplopia, cough, [...] chemotherapy. TACHO. Renewal of anastrazole sent. Given [facility] brochure to share with cousins. All questions [...] BMD measurements and plots are available in [employer] under the imaging tab. Paper copies will be sent to providers without [employer] access. If you have received this report without the data sheet and do not have access to [employer], please contact Radiology Gas Systems Worker at [phone] Thursday thru Thursday 8am-4pm. Thank you for letting us participate in the care of this patient. For questions regarding this report, please contact the number below. ? Electronically signed by: Khushi Hughes [facility] ([phone]), at 11/10/2018 10:55 AM Narrative 11/10/2018 10:55 [...] BMD measurements and plots are available in [employer] the imaging tab. Paper copies will be sent to providers without [employer] access.If you have received this report without the data sheet and do not haveaccess to [employer], please contact Radiology Gas Systems Worker at [phone] Thursday thruFriday 8am-4pm. Thank you for letting us participate in the care of this patient. Forquestions regarding this report, please contact the number below. Electronically signed by: Khushi Hughes [facility] ([phone]),at 11/10/2018 10:55 AM Ricky Lowry MD IMG DEXA ORDERABLES documented in this encounter Visit Diagnoses Diagnosis 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, estrogen receptor positive Osteopenia of neck of femur, unspecified laterality halfway current 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 Use 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s 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, estrogen receptor positive Osteopenia of neck of femur, unspecified laterality halfway current 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 Use 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s documented in this encounter Care Teams Software Solutions Architect Relationship Specialty Start Date End Date Ana Her MD [address] [place] [address] PCP - General 07/29/13 documented as of this encounter
--- OUTSIDE RECORDS SUMMARY | 2024-05-02 09:40 | XMS_ITS | Encounter Summary ---
Author Organization [facility] Include [address] [address] Care Team Providers Care Director Of Critical Care Name Role Phone Ana Her MD Primary Care Provider [phone] 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 * Diagnostic Test (Routine) - Closed Specialty Diagnoses / Procedures Referred By Christiano hackett Referred To Contact Radiology Diagnoses 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, estrogen receptor positive Osteopenia of neck of femur, unspecified laterality intermediate current 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 Procedures DXA Central Spine, Hip, and/or Whole Body (Generic) Ricky Lowry MD [facility] DR HEMATOLOGY/[place] [address] [facility] Rad Xray [address] [place] [address] [place] [address] Referral ID Status Reason Start Date Expiration Date V isits Requested Visits Authorized [id number] Closed Specialty Service Requested 05/22/2020 11/19/2021 1 1 Encounter Details Date Type Department Care Team (Late st Contact Info) Description 05/22/2020 1:15 PM EST Office Visit Hematology and Oncology at [facility] [place] [address] Ricky Lowry MD 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, estrogen receptor positive; Osteopenia of neck of femur, unspecified laterality; 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 Cardiology at [facility]. S/P successful cardioversion May 2018. [...] BMD measurements and plots are available in [employer] under the imaging tab. Paper copies will be sent to providers without [employer] access. If you have received this report without the data sheet and do not have access to [employer], please contact Radiology [facility] at [phone] Thursday thru Thursday 8am-4pm. Thank you for letting us participate in the care of this patient. ??If you are a health care provider and have any questions regarding this report, please contact the number below. ??For patients who have questions please contact the health ambulatory care that requested your imaging first. ? [...] BMD measurements and plots are available in ER[employer]under the imaging tab. Paper copies will be sent to providers without [employer] access.If you have received this report without the data sheet and do not haveaccess to [employer], please contact Radiology Director Of Event Management at [phone] Thursday thruFriday 8am-4pm. Thank you for letting us participate in the care of this patient. If youare a health care provider and have any questions regarding this report,please contact the number below. For patients who have questions please contactthe health ambulatory care that requested your imaging first. Ricky [...] in this encounter Care Teams Director Of Critical Care Relationship Specialty Start Date End Date Ana Her MD [address] [place] [address] PCP - General 07/29/13 documented as of this encounter
--- OUTSIDE RECORDS SUMMARY | 2024-05-02 09:40 | XMS_ITS | Encounter Summary ---
Author Organization [facility] [place] [address] Care Team Providers Care Wood Turning Lathe Operator Name Role Phone Ana Her MD Primary Care Provider [phone] 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 * Diagnostic Test (Routine) - Closed Specialty Diagnoses / Procedures Referred By Contac t Referred To Contact Radiology Diagnoses 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, estrogen receptor positive Osteopenia of neck of femur, unspecified laterality shelter current 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 Procedures DXA Central Spine, Hip, and/or Whole Body (Generic) Ricky Lowry MD [facility] HEMATOLOGY/[place] [address] [facility] Rad Xray [address] [place] [address] [place] [address] Referral ID Status Reason Start Date Expiration Date V isits Requested Visits Authorized [id number] Closed Specialty Service Requested 05/22/2020 11/19/2021 1 1 Reason for Visit * Diagnostic Test (Routine) - Closed Specialty Diagnoses / Procedures Referred By Contac t Referred To Contact Radiology Diagnoses 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, estrogen receptor positive Osteopenia of neck of femur, unspecified laterality 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 Procedures DXA Central Spine, Hip, and/or Whole Body (Generic) Ricky Lowry MD [facility] HEMATOLOGY/[place] [address] [facility] Rad Xray [address] [place] [address] Dr [place]e [phone] Referral ID Status Reason Start Date Expiration Date V isits Requested Visits Authorized [id number] Closed Specialty Service Requested 05/22/2020 11/19/2021 1 1 Encounter Details Date Type Department Care Team (Latest Contact Info) Description 11/15/2020 2:25 PM EDT - 11/15/2020 11:59 PM EDT Hospital Encounter XRay at [address] [place] [address] Ricky Lowry MD 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, estrogen receptor positive; Osteopenia of neck of femur, unspecified laterality; shelter current 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 Paper copies will be sent to providers without E- access. If you have received this report without the data sheet and do not have access to [employer], please contact Radiology Dirt Bike Mechanic at [phone] Thursday thru Thursday 8am-4pm. Thank you for letting us participate in the care of this patient. ??If you are a health care provider and have any questions regarding this report, please contact the number below. ??For patients who have questions please contact the health team primary care physician that requested your imaging first. ? Electronically signed by: Nat Epperson MD, [facility] ([phone]), at 11/19/2020 1:09 PM Narrative 11/19/2020 1:09 [...] BMD measurements and plots are available in [employer]under the imaging tab. Paper copies will be sent to providers without - access.If you have received this report without the data sheet and do not haveaccess to [facility], please contact Radiology Dirt Bike Mechanic at [phone] Thursday thrrid 8am-4pm. Thank you for letting us participate in the care of this patient. If youare a health care provider and have any questions regarding this report,please contact the number below. For patients who have questions please contactthe health team primary care physician that requested your imaging first. Electronically signed by: Nat Epperson MD, [facility]([phone]), at 11/19/2020 1:09 PM Ricky Lowry MD IMG DEXA ORDERABLES documented in this encounter Visit Diagnoses Diagnosis 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, estrogen receptor positive Osteopenia of neck of femur, unspecified laterality shelter current 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 Use of aromatase inhibitors documented in this encounter Care Teams Wood Turning Lathe Operator Relationship Specialty Start Date End Date Ana Her MD [address] [place] [address] PCP - General 07/29/13 documented as of this encounter
--- OUTSIDE RECORDS SUMMARY | 2024-05-02 09:40 | XMS_ITS | Encounter Summary ---
Author Organization [facility] [place] [address] Care Team Providers Care Door Worker Name Role Phone Ana Her MD Primary Care Provider [phone] Encounter Details Date Type Department Care Team (Late st Contact Info) Description 10/23/2017 9:43 AM EDT - 10/23/2017 11:59 PM EDT Hospital En[place] [address] Hiral Padgett, WENDY History of breast cancer [...] breast documented in this encounter Care Teams Door Worker Relationship Specialty Start Date End Date Ana Her MD [address] [place] [address] PCP - General 07/29/13 documented as of this encounter
--- OUTSIDE RECORDS SUMMARY | 2024-05-02 09:40 | XMS_ITS | Encounter Summary ---
[place] [address] Care Team Providers Care Facility Supervisor Name Role Phone Ana Her MD Primary Care Provider [phone] Encounter Details Date Type Department Care Team (Late st Contact Info) Description 12/24/2021 Telephone [place] [address] Chelsie Lauren Social History Tobacco Use Types [...] on filedocumented in this encounter Care Teams Facility Supervisor Relationship Specialty Start Date End Date Ana Her MD [address] [place] [address] PCP - General 07/29/13 documented as of this encounter
--- OUTSIDE RECORDS SUMMARY | 2024-05-02 09:40 | XMS_ITS | Encounter Summary ---
[place] [address] Care Team Providers Care Container Crane Operator Name Role Phone Ana Her MD Primary Care Provider [phone] 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 * Consultation (Routine) - Closed Specialty Diagnoses / Procedures Referred By Christiano hackett Referred To Contact General Surgery Diagnoses Hiatal hernia Ana Her MD [address] [place] [address] [facility] Gen Surgery [address] [place] [phone] Referral ID Status Reason Start Date Expiration Date V isits Requested Visits Authorized [id number] Closed Consult, Test & Treat 09/23/2021 09/23/2022 6 6 Encounter Details Date Type Department Care Team (Late st Contact Info) Description 09/23/2021 Transcribe Orders eDH Incoming Referrals [phone] Ana Her MD [address] [place] [address] Hiatal hernia Social History Tobacco [...] gangrene documented in this encounter Care Teams Container Crane Operator Relationship Specialty Start Date End Date Ana Her MD [address] [place] [address] PCP - General 07/29/13 documented as of this encounter
--- OUTSIDE RECORDS SUMMARY | 2024-05-02 09:40 | XMS_ITS | Encounter Summary ---
[place] [address] Care Team Providers Care Sales Clerk Food Name Role Phone Ana Her MD Primary Care Provider [phone] Encounter Details Date Type Department Care Team (Late st Contact Info) Description 06/12/2021 Telephone [place] [address] Chelsie Lauren Social History Tobacco Use Types [...] filedocumented in this encounter Care Teams Sales Clerk Food Relationship Specialty Start Date End Date Ana Her MD [address] [place] [address] PCP - General 07/29/13 documented as of this encounter
--- OUTSIDE RECORDS SUMMARY | 2024-05-02 09:40 | XMS_ITS | Encounter Summary ---
[place] [address] Care Team Providers Care Clinical Unit Educator Name Role Phone Ana Her MD Primary Care Provider [phone] Reason for Visit * Reason Comments Follow-up Encounter Details Date Type Department Care Team (Late st Contact Info) Description 05/22/2020 11:40 AM EST Office Visit [place] [address] Jeanine Lobato APRN [facility] [place] [address] Encounter for follow-up surveillance of breast cancer; [...] was obtained which revealed IDC which is ER/CT positive, Her2 negative. Alma Delia opted against [...] ??Excision with image-guided localization ?Lymph Node Sampling: ??[place] lymph node(s) ?Specimen Laterality: ??Left Tumor ?Histologic [...] ??DCIS not present in specimen Lymph Nodes ?[place] Lymph Nodes: [place] lymph node biopsy performed ?Number of [place] Nodes Examined: ??3 ?Number of Lymph Node(s) [...] herex- speak almost daily. He lives in [place] and is beginning to show early signs [...] situation. Results: Imaging performed (bilateral mammogram) at [facility] today shows no evidence of [...] available at [employer] ([employer]) and [employer]. All questions were answered to the patient's satisfaction and they state understanding and agreement with today's treatment plan. They are encouraged to follow up sooner if they develop any new or concerning symptoms. Jeanine Lobato APRN Surgical Oncology P [phone] F [phone] [facility] documented in this encounter Plan of [...] who have questions please contact the health intensive care medicine specialist that requested your imaging first. ? Electronically signed by: Digna Noel MD, [facility] ([phone]), at 06/11/2021 9:20 AM Jeanine Lobato APRN [...] mammogram documented in this encounter Care Teams Clinical Unit Educator Relationship Specialty Start Date End Date Ana Her MD [facility] [address] [place] [address] PCP - General 07/29/13 documented as of this encounter
--- OUTSIDE RECORDS SUMMARY | 2024-05-02 09:40 | XMS_ITS | Encounter Summary ---
[place] [address] Care Team Providers Care Snowmobile Mechanic Name Role Phone Ana Her MD Primary Care Provider [phone] Encounter Details Date Type Department Care Team (Late st Contact Info) Description 12/17/2021 Telephone [place] [phone] Roma Estrada RN Social History Tobacco Use [...] on filedocumented in this encounter Care Teams Snowmobile Mechanic Relationship Specialty Start Date End Date Ana Her MD [address] [place] [address] PCP - General 07/29/13 documented as of this encounter
--- OUTSIDE RECORDS SUMMARY | 2024-05-02 09:40 | XMS_ITS | Encounter Summary ---
Author Organization [facility] [place] [address] Care Team Providers Care Correctional Program Specialist Name Role Phone Ana Her MD Primary Care Provider [phone] Reason for Visit * Reason Comments Follow Up Surgery Encounter Details Date Type Department Care Team (Late st Contact Info) Description 07/13/2017 1:30 PM EDT Office [place] [phone] Hiral Padgett, WENDY History of breast cancer [...] with image-guided localization ?Lymph Node Sampling: ?? [place] lymph node(s) ?Specimen Laterality: ?? Left Tumor [...] ?DCIS not present in specimen Lymph Nodes ?[place] Lymph Nodes: ?? [place] lymph node biopsy performed ?Number of [place] Nodes Examined: ?3 ?Number of Lymph Node(s) [...] breast documented in this encounter Care Teams Correctional Program Specialist Relationship Specialty Start Date End Date Ana Her MD [facility] [address] [place] [address] PCP - General 07/29/13 documented as of this encounter
--- OUTSIDE RECORDS SUMMARY | 2024-05-02 09:40 | XMS_ITS | Encounter Summary ---
Author Organization [facility] [place] [address] Care Team Providers Care Stopping Builder Name Role Phone Ana Her MD Primary Care Provider [phone] Encounter Details Date Type Department Care Team (Latest Contact Info) Description 03/30/2017 8:30 AM [facility] Hospital [place] [address] Malika Chen MD [facility] [address] Malignant neoplasm of upper-outer quadrant of left [...] positive documented in this encounter Care Teams Stopping Builder Relationship Specialty Start Date End Date Ana Her MD [address] [place] [address] PCP - General 07/29/13 documented as of this encounter
--- OUTSIDE RECORDS SUMMARY | 2024-05-02 09:40 | XMS_ITS | Encounter Summary ---
[place] [address] Care Team Providers Care Slurry Worker Name Role Phone Ana Her MD Primary Care Provider [phone] Encounter Details Date Type Department Care Team (Late st Contact Info) Description 05/10/2018 2:15 PM EST Office [place] [address] Hiral Padgett, WENDY History of breast cancer [...] with image-guided localization ?Lymph Node Sampling: ?? Brush lymph node(s) ?Specimen Laterality: ?? Left Tumor [...] ?DCIS not present in specimen Lymph Nodes ?Brush Lymph Nodes: ?? Brush lymph node biopsy performed ?Number of Brush Nodes Examined: ?3 ?Number of Lymph Node(s) [...] mammogram today is cat 2. Leaving for [facility] later today for a cardiac ablation/a fib at [facility]. Objective: Physical Exam Constitutional: She is oriented [...] breast documented in this encounter Care Teams Slurry Worker Relationship Specialty Start Date End Date Ana Her MD [address] [place] [address] PCP - General 07/29/13 documented as of this encounter
--- OUTSIDE RECORDS SUMMARY | 2024-05-02 09:40 | XMS_ITS | Encounter Summary ---
Author Organization [facility] [address] Care Team Providers Care Experience Designer Name Role Phone Ana Her MD Primary Care Provider Encounter Details Date Type Department Care Team (Late st Contact Info) Description 01/08/2022 7:42 AM EDT Anesthesia Event [place] [address] Alisa Naqvi MD [facility] [place] [address] Anesthesia Record Procedure Summary Procedure Name Responsible [...] cephalic vein (lateral side of arm), left; dsiz-lyv-shdwcy catheter system; Anatomical Landmarks; 20 gauge; Joslyn [...] Procedure Summary Date: 01/08/22 Room / Location: [facility] OR [address] [place] [address] MAIN OR Anesthesia Start: 741 Anesthesia Stop: 825 Procedure: EGD, UPPER GI ENDOSCOPY (N/A Trunk) Diagnosis: (Hiatal hernia) Surgeons: aLura Will MD Responsible Provider: Alisa Naqvi MD Anesthesia Type: general ASA Status: 3 All Anesthesia Providers: Anesthesiologist: Alisa Naqvi MD Plant Chief: Nghia Valerio MD Vitals Value Taken Time BP 98/56 01/08/22 0823 Temp Pulse Resp SpO2 99 % 01/08/22826 Pain Level Vitals shown include unvalidated device data. Patient Location: PACU/[facility] Level of Consciousness: Conscious but [...] [facility]?? PRO MASTECTOMY PARTIAL Left 03/30/2017 MASTECTOMY PARTIAL (WRVU 10.13) performed by Malika Chen MD at [facility] MAIN OR Social History Tobacco [...] mg documented in this encounter Care Teams Experience Designer Relationship Specialty Start Date End Date Ana Her MD [facility] [address] [facility] 1 [place] [address] PCP - General 07/29/13 documented as of this encounter
--- OUTSIDE RECORDS SUMMARY | 2024-05-02 09:40 | XMS_ITS | Encounter Summary ---
Author Organization [facility] [place] [address] Care Team Providers Care Forging Engineer Name Role Phone Ana Her MD Primary Care Provider [phone] Encounter Details Date Type Department Care Team (Late st Contact Info) Description 04/23/2017 Notes [place] [address] Marjorie Ariza Social History Tobacco Use Types [...] Marjorie Ariza - 04/23/2017 2:43 PM EST Cleaning Custodian Research Technician met with pt after consultation with medical [...] on filedocumented in this encounter Care Teams Forging Engineer Relationship Specialty Start Date End Date Ana Her MD [address] [facility] 1 [place] [address] PCP - General 07/29/13 documented as of this encounter
--- OUTSIDE RECORDS SUMMARY | 2024-05-02 09:40 | XMS_ITS | Encounter Summary ---
[place] [address] Care Team Providers Care High School Business Teacher Name Role Phone Ana Her MD Primary Care Provider [phone] Encounter Details Date Type Department Care Team (Late st Contact Info) Description 06/12/2021 [place]phone [place] [id number] Chelsie Lauren Social History Tobacco Use Types [...] on filedocumented in this encounter Care Teams High School Business Teacher Relationship Specialty Start Date End Date Ana Her MD [address] [place] [address] PCP - General 07/29/13 documented as of this encounter
--- OUTSIDE RECORDS SUMMARY | 2024-05-02 09:40 | XMS_ITS | Encounter Summary ---
[place] [address] Care Team Providers Care Shift Supervisor Melting Name Role Phone Ana Her MD Primary Care Provider [phone] Encounter Details Date Type Department Care Team (Late st Contact Info) Description 05/06/2017 Telephone Radiation Oncology at [address] [address] Maria A Antonio RN Social [...] on filedocumented in this encounter Care Teams Shift Supervisor Melting Relationship Specialty Start Date End Date Ana Her MD [address] [facility] 1 [place] [address] PCP - General 07/29/13 documented as of this encounter
--- OUTSIDE RECORDS SUMMARY | 2024-05-02 09:41 | XMS_ITS | Encounter Summary ---
Author Organization [facility] Address [facility] [place] [address] Care Team Providers Care Manager Of Transportation Name Role Phone Ana Her MD Primary Care Provider [phone] Encounter Details Date Type Department Care Team (Late st Contact Info) Description 09/13/2015 Interpretation Only Radiology [facility] [place] [address] Unknown None Social History Tobacco Use Types [...] 6:56 AM EDT APD Historical Result Principal Teacher Advisor: ??MAE ??ESCHBACH IMAGE-INTENSIFIER FILMS: INDICATION: ??Right L4 foraminotomy. FINDINGS: A total of 5.8 seconds of fluoro time was utilized by Geraldine Claros MD. ??Estimated dose is 5.96 mGy. ??Two image-intensifier films record the event. ??They show the lumbosacral junction in the lateral projection with a surgical instrument indicating the level of L4. ??No Radiologist was present for this exam. Mae Shelley DO TOBIN/mn [id number] Procedure Note Unknown - 11/01/2018 APD Historical Result Principal Teacher Advisor: MAE SHELLEY IMAGE-INTENSIFIER FILMS: INDICATION: Right L4 foraminotomy. FINDINGS: A total of 5.8 seconds of fluoro time was utilized by Geraldine Claros MD. Estimated dose is 5.96 mGy. Two image-intensifier films record the event. They show thelumbosacral junction in the lateral projection with a surgical instrument indicating the level of L4.No Radiologist was present for this exam. Mae Shelley DO TOBIN/mn [id number] Unknown IMG FLUORO ORDERABLE S documented in this encounter Visit Diagnoses Not on filedocumented in this encounter Care Teams Manager Of Transportation Relationship Specialty Start Date End Date Ana Her MD [address] [place] [address] PCP - General 07/29/13 documented as of this encounter
--- OUTSIDE RECORDS SUMMARY | 2024-05-02 09:41 | XMS_ITS | Referral Summary ---
Author Organization [facility] Address [address] [place] [address] Care Team Providers Care Potable Water Treatment Operator Name Role Phone Unknown, Provider MD Primary Care Provider Unava ilable Social History Tobacco Use Types Packs/Day Years Used Date Smoking Tobacco: Never Assessed Comments Unknown Sex and Gender Information Value Date Recorded Sex Assigned at Not on file Legal Sex Female 9:32 EDT Gender Identity Not on file Sexual Orientation Not on file Plan of Treatment Not on file Care Teams Potable Water Treatment Operator Relationship Specialty Start Date End Date Unknown, Provider, PCP - General 01/13/14
--- OUTSIDE RECORDS SUMMARY | 2024-05-02 09:41 | XMS_ITS | Encounter Summary ---
Author Organization [facility] Address [facility] [place] [address] Care Team Providers Care Room Attendants Name Role Phone Unavailable Primary Care Provider Unavailabl e Encounter Details Date Type Department Care Team (Latest Contact Info) Description 01/29/2013 - 01/29/2013 11:59 PM EDT Hospital Encounter Radiology Library at [facility] [place] [address] Jackie Cisneros APRN [facility] [place] [address] Discharge Disposition: Home Social History Tobacco Use [...] Cisneros APRN IMG FILM LIBRARY ORD ERABLES NDAINE Sethi documented in this encounter Visit Diagnoses Not on filedocumented in this encounter
--- OUTSIDE RECORDS SUMMARY | 2024-05-02 09:41 | XMS_ITS | Encounter Summary ---
Author Organization [facility] Address [facility] [address] Care Team Providers Care Quiller Runner Name Role Phone Unavailable Primary Care Provider Unavailabl e Encounter Details Date Type Department Care Team (Latest Contact Info) Description 12/19/2009 - 12/19/2009 11:59 PM EDT Hospital Encounter Radiology Library at [facility] [place] [address] Jackie Cisneros APRN [facility] [place] [address] Discharge Disposition: Home Social History Tobacco Use [...] Only Mammo (12/19/2009 12:00 AM EDT) Narrative [facility] - 02/23/2017 3:29 PM EDT This exam is for storage only and is auto-finalizing. Jackie Cisneros APRN IMG FILM LIBRARY ORD ERABLES NADINE Sethi documented in this encounter Visit Diagnoses Not on filedocumented in this encounter
--- OUTSIDE RECORDS SUMMARY | 2024-05-02 09:41 | XMS_ITS | Encounter Summary ---
[place] [address] Care Team Providers Care Boring Machine Set Up Operator Jig Name Role Phone Ana Her MD Primary Care Provider [phone] 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 * Surgical (Routine) - Closed Specialty Diagnoses / Procedures Referred By Christiano hackett Referred To Contact Orthopaedics Diagnoses Lumbar spinal stenosis Michelle Hurtado APRN [facility] [place] [address] [facility] [place] [address] Referral ID Status Reason Start Date Expiration Date V isits Requested Visits Authorized [id number] Closed Consult, Test & Treat 09/08/2014 09/08/2015 3 3 Encounter Details Date Type Department Care Team (Late st Contact Info) Description 09/08/2014 Orders [place] [address] [address] Hurtado [facility] [place] [place] [address] Lumbar spinal stenosis Social History Tobacco Use [...] claudication documented in this encounter Care Teams Boring Machine Set Up Operator Jig Relationship Specialty Start Date End Date Ana Her MD [facility] [address] [facility] 1 [place] [address] PCP - General 07/29/13 documented as of this encounter
--- OUTSIDE RECORDS SUMMARY | 2024-05-02 09:41 | XMS_ITS | Encounter Summary ---
Author Organization [facility] Address [facility] [place] [address] Care Team Providers Care Tunnel Miner Name Role Phone Ana Her MD Primary Care Provider [phone] Encounter Details Date Type Department Care Team (Latest Contact Info) Description 04/24/2014 - 04/24/2014 11:59 PM EST Hospital Encounter Radiology Library at [facility] [place] [address] Maryam Yee MD [facility] [place] [address] Screening breast examination Discharge Disposition: Home Social [...] Yee MD IMG FILM LIBRARY O RDERABLES [place], [place] documented in this encounter Visit Diagnoses Diagnosis Screening breast examination Other screening breast examination documented in this encounter Care Teams Tunnel Miner Relationship Specialty Start Date End Date Ana Her MD [address] [facility] 1 [place] [address] PCP - General 07/29/13 documented as of this encounter
--- OUTSIDE RECORDS SUMMARY | 2024-05-02 09:41 | XMS_ITS | Encounter Summary ---
Author Organization [facility] Address [place] [address] Care Team Providers Care Refuse Collector Name Role Phone Unavailable Primary Care Provider Unavailabl e Encounter Details Date Type Department Care Team (Latest Contact Info) Description 12/25/2010 - 12/25/2010 11:59 PM EDT Hospital Encounter Radiology Library [place] [address] Jackie Cisneros APRN [facility] [place] [address] Discharge Disposition: Home Social History Tobacco Use [...] Only Mammo (12/25/2010 12:00 AM EDT) Narrative [facility] - 02/23/2017 3:27 PM EDT This exam is for storage only and is auto-finalizing. Jackie Cisneros APRN IMG FILM LIBRARY ORD ERABLES NADINE Sethi documented in this encounter Visit Diagnoses Not on filedocumented in this encounter
--- OUTSIDE RECORDS SUMMARY | 2024-05-02 09:41 | XMS_ITS | Encounter Summary ---
[place] [address] Care Team Providers Care Knot Bumper Name Role Phone Ana Her MD Primary Care Provider [phone] Encounter Details Date Type Department Care Team (Latest Contact Info) Description 03/03/2017 7:55 AM EDT Laboratory Appointment Lab [address] [place] [address] Malignant neoplasm of left breast in female, [...] 7:50 AM EDT) Neutrophil % 72.8 % [facility] Neutrophil Absolute 6.45(H) 1.70 - 6.10 x10(3)/mc L [facility] Lymph % 14.4 % [facility] Lymphocytes Abs 1.3 0.9 - 3.2 x10(3)/ L [facility] Monocyte % 5.6 % [facility] Monocyte Abs 0.5 0.3 - 0.9 x10(3)/ L [facility] Eos % 6.1 % [facility] Eosinophils Abs 0.5(H) 0.0 - 0.4 x10(3)/ L [facility] Basophil % 0.6 % [facility] Baso Absolute 0.0 0.0 [...] Absolute 0.04 0.00 - 0.04 x10(3)/mc L [facility] Blood specimen (specimen) 03/03/2017 7:50 AM EDT 03/03/2017 8:03 AM EDT Narrative Resulting Agency Comment Spec In Lab Malika Chen MD HEMATOLOGY ORDERABL ES [facility] [place] [address] * (ABNORMAL) Hemogram (03/03/2017 7:50 AM EDT) White Blood Cell 8.8 4.0 - 9.5 x10(3)/mc L [facility] Red Blood Cell 3.80(L) 4.00 - 5.21 x10(6)/mc L [facility] Hemoglobin 12.3 11.7 - 15.5 gm/dL [facility] Hematocrit 36.3 35.7 - 45.8 % [facility] Mean Cell Volume 95.5(H) 82.6 - 94.4 fL [facility] Mean Cell Hemoglobin 32.4(H) 27.1 - 32.0 pg [facility] Mean Cell Hemoglobin Concentration 33.9 31.7 - 35.0 gm/dL [facility] Platelet 156 145 - 357 x10(3)/ L [facility] RDW Standard Deviation 48.3(H) 37.0 - 46.0 [facility] RDW coefficient of variation 13.9 11.5 - 14.1 % [facility] Mean Platelet Volume 11.9 7.6 - 12.9 fL [facility] NRBC% auto 0.0 % [facility] NRBC Absolute 0.000 0.000 - 0.000 x10(3)/ L [facility] Blood specimen (specimen) 03/03/2017 7:50 AM EDT 03/03/2017 8:03 AM EDT Narrative Resulting Agency Comment Spec In Lab Malika Chen MD HEMATOLOGY ORDERABL ES [facility] [place] [address] * (ABNORMAL) Comprehensive metabolic panel (non-fasting) (03/03/2017 7:50 AM EDT) Glucose 139 65 - 199 mg/dL [facility] Comment:Diabetes: >=200 mg/d L plus symptoms Blood Urea Nitrogen 20(H) 8 - 18 mg/dL [facility] [...] 107 mmol/L [facility] Carbon Dioxide 26 22 - 31 mmol/L [facility] Anion Gap 14 5 - 15 mmol/L [facility] Calcium 9.3 8.5 - 10.5 mg/dL [facility] Protein, Total 6.9 6.1 - 8.0 gm/dL [facility] Albumin 4.2 3.2 - 5.2 gm/dL [facility] Aspartate Aminotransferase 17 0 - 30 unit/L [facility] Alanine Aminotransferase 16 0 - 30 unit/L [facility] Alkaline Phosphatase 75 40 - 104 unit/L [facility] Bilirubin, Total 0.5 0.2 - 1.3 mg/dL [facility] Est Glomerular Filtration Rate 58(L) >=60 [facility] Comment: The reported eGFR should be multiplied by 1.2 for patients. The MDRD is not an appropriate measure of renal function for patients with body mass extremes or in patients with acute kidney failure. http://[employer]/DHnkdep http://[employer].com/DHMCnkf Blood specimen (specimen) 03/03/2017 7:50 AM EDT 03/03/2017 8:03 AM EDT Narrative Resulting Agency Comment Spec In Lab Malika Chen [place] [address] documented in this encounter Visit Diagnoses Diagnosis Malignant neoplasm of left breast in female, estrogen receptor positive, unspecified site of breast documented in this encounter Care Teams Knot Bumper Relationship Specialty Start Date End Date Ana Her MD [address] [place] [address] PCP - General 07/29/13 documented as of this encounter
--- OUTSIDE RECORDS SUMMARY | 2024-05-02 09:41 | XMS_ITS | Encounter Summary ---
Author Organization [facility] [address] Care Team Providers Care Master Naval Parachutist Name Role Phone Ana Her MD Primary Care Provider [phone] Encounter Details Date Type Department Care Team (Late st Contact Info) Description 03/03/2017 Notes [place] [address] January Ward MSW Social History Tobacco Use Types Packs/Day Years Used Date Smoking Tobacco: Never Smokeless Tobacco: Never Sex and Gender Information Value Date Recorded Sex Assigned at Not on file Gender Identity Not on file Sexual Orientation Not on file documented as of this encounter Progress Notes * January Ward MSW - 03/03/2017 12:56 PM EDT OFFICE OF CARE MANAGEMENT/CONTINUING COURSEWARE DEVELOPER Reason for referral: Digna Olson is a 71 year old, female who was seen in the multidisciplinarybreast care clinic for a surgical consult as she was recently diagnosed with ER/AZ+, left breast, invasive mucinous carcinoma. After meeting with Dr. Chen, pt has decided to have a lumpectomy/SLNB. If pt needs radiation therapy, she will [facility] met with pt to complete a psychosocial assessment and to explain my role in the breast program. Pt was encouraged to contact me if she has any questions or concerns. Living arrangements/social supports: Pt lives alone in [place], [place]. She has support from her family and is accompanied to today's appt by her sisters who live in [place]. Employment/Insurance/Finances: Pt is retired and receives Social Security Intermediate Benefits. Pt has Medicare A and B [...] [facility] Plan: [facility] will continue to follow pt to assess and assist with their psychosocial needs. DELONTE Moreno [facility]/[place] [phone] Pager #[phone] documented in this encounter Plan of Treatment Not on file documented as of this encounter Visit Diagnoses Not on filedocumented in this encounter Care Teams Master Naval Parachutist Relationship Specialty Start Date End Date Ana Her MD [address] [place] [address] PCP - General 07/29/13 documented as of this encounter
--- OUTSIDE RECORDS SUMMARY | 2024-05-02 09:41 | XMS_ITS | Encounter Summary ---
[place] [address] Care Team Providers Care Hand I Tube Bender Name Role Phone Ana Her MD Primary Care Provider [phone] Encounter Details Date Type Department Care Team (Latest Contact Info) Description 03/30/2017 7:27 AM EST - 03/30/2017 1:37 PM EST Hospital Encounter [place] [id number] Brant Chen MD [facility] [place] [address] Discharge Disposition: Home Social History Tobacco Use [...] shower 24 hours Activity as tolerated Call [phone] with any questions Do not soak incision [...] was obtained which revealed IDC which is ER/SD+, her2-. She has no known breast masses, no adenopathy, no nipple discharge. ?? Alma Delia had a bone scan in [place] which was read as possible metastasis in the left tibia. Of note- she fractured this area recently. She has recovered well. ?? PMH HNT NIDDM not on meds Spinal stenosis Fractured left tibial plateau December, GERD ?? FH: Maternal first cousin with breast cancer Brother with rectal cancer Sister with PE ? SH: lives alone. Has good support from sisters who live in [place]. Non smoker. Has a son who lives [...] 71 yo female with radiographic stage I ER/SD+, HER2- IDC of the left breast. No [...] Chen MD - 03/30/2017 12:27 PM EST [facility] Operative Note Patient Name: Digna Olson : [id number] MR#: [id number] Case Date: 03/30/2017 Surgeon: Surgeon(s) and Role: [...] [place] [phone]. Remaining count within the axilla was 1982. [...] PM EST 03/30/2017 12:09 PM EST Narrative [facility] - 03/30/2017 12:09 PM EST Specimen requisition ordered. ??Separate Pathology report to follow Brant Chen MD PATHOLOGY/CYTOLOGY ORDERABLES [facility] [place] [address] * Specimen to Pathology (surgical or derm) (03/30/2017 12:08 PM EST) AP Specimen 03/30/2017 12:0 8 PM EST 03/30/2017 12:08 PM EST Narrative [facility] - 03/30/2017 12:08 PM EST Specimen requisition ordered. ??Separate Pathology report to follow Brant Chen MD PATHOLOGY/CYTOLOGY ORDERABLES Performing Organization Address [facility] [place] [address] * Specimen to Pathology (surgical or derm) (03/30/2017 12:00 PM EST) AP Specimen 03/30/2017 12:0 0 PM EST 03/30/2017 12:00 PM EST Narrative [facility] - 03/30/2017 12:00 PM EST Specimen requisition ordered. ??Separate Pathology report to follow Brant Chen MD PATHOLOGY/CYTOLOGY ORDERABLES Performing Organization Address [facility] Co de Phone Number [place] [phone] * Specimen to Pathology (surgical or derm) (03/30/2017 11:51 AM EST) AP Specimen 03/30/2017 11:5 1 AM EST 03/30/2017 11:51 AM EST Narrative [facility] - 03/30/2017 11:51 AM EST Specimen requisition ordered. ??Separate Pathology report to follow Brant Chen MD PATHOLOGY/CYTOLOGY ORDERABLES Performing Organization Address [facility] [place] [address] * Surgical Pathology Report (03/30/2017 11:50 AM EST) Final Diagnosis [id number] ? Location: [facility]; [facility]; A The signing pathologist has (i) examined the relevant preparation(s) for the specimen(s) and (ii) rendered or confirmed the diagnosis(es). . ?Surgical Pathology DIAGNOSIS A,B - See Synoptic C - Left breast, Deep/lateral margin re-excision - ?Benign fatty breast tissue. D - Left breast, Superficial margin re-excision - ?Benign fatty breast tissue. See Note Note - [place] ink (indicating additional cranial margin) is also present on this superficial margin re-excision. ---- Specimen Parts: ?? A - Left axilliary sentinel node B - Left breast partial mastectomy Specimen ? Procedure: ??Excision with image-guided localization ? Lymph Node Sampling: ?? Norris lymph node(s) ? Specimen Laterality: ?? Left [...] not present in specimen Lymph Nodes ? Norris Lymph Nodes: ?? Norris lymph node biopsy performed ? Number of Norris Nodes Examined: ?3 ? Number of Lymph [...] Chávez DO Verified: ??04/01/2017 ?Pathologist Performed at: ??-[facility] Dept. of Pathology, [place], [place] CLINICAL INFORMATION Specimen Submitted: A - [...] and there are ??no close margins. per [facility] . Specimen Description: According to [...] 0.8 x 0.4 x 0.4 cm. Color: Centre and yellow. Consistency: Soft. Location: Slices III and IV. Nearest Margin: 0.6 cm to the cranial margin. Other Margins: 0.8 cm to the deep margin, 1.0 cm to the superficial margin, ? > 2 cm from all other margins. OTHER Parenchyma: Predominately fatty with scant fibrous tissue. Wire/Clip: Biopsy marker clip identified within slice IV. SECTIONS/PROCESSI NG: (1) claims customer service representative slice I, lateral margin; (2) slice III, lesion to cranial margin; (3-5) remainder of slice III; (6) slice IV, lesion to cranial margin (clip); (7-8) remainder of slice IV; (9) claims customer service representative slice V; (10) claims customer service representative slice X, medial margin. (R10) [...] sectioned. (T3) ??sns 04/01/2017 9:38 AM EST [facility] BREAST STRUCTURE / Unknown 03/30/2017 11:50 AM EST 03/30/2017 11:50 AM EST BREAST STRUCTURE / Unknown 03/30/2017 11:50 AM EST 03/30/2017 11:50 AM EST BREAST STRUCTURE / Unknown 03/30/2017 11:50 AM EST 03/30/2017 11:50 AM EST BREAST STRUCTURE / Unknown 03/30/2017 11:50 AM EST 03/30/2017 11:50 AM EST Brant Chen MD PATHOLOGY/CYTOLOGY ORDERABLES [facility] [place] [address] * Mammo Direct Digital Left (03/30/2017 9:15 [...] Routine documented in this encounter Care Teams Hand I Tube Bender Relationship Specialty Start Date End Date Ana Her MD [address] [place] [address] PCP - General 07/29/13 documented as of this encounter
--- OUTSIDE RECORDS SUMMARY | 2024-05-02 09:41 | XMS_ITS | Encounter Summary ---
Author Organization [facility] [place] [address] Care Team Providers Care Wreath Maker Name Role Phone Ana Her MD Primary Care Provider [phone] Encounter Details Date Type Department Care Team (Late st Contact Info) Description 02/27/2017 Orders Only [place] [address] Malika Chen MD [facility] [place] [address] Malignant neoplasm of left breast in female, [...] EDT) Glucose 139 65 - 199 mg/dL [facility] Comment:Diabetes: >=200 mg/d L plus symptoms Blood Urea Nitrogen 20(H) 8 - 18 mg/dL [facility] Creatinine 0.95 0.70 - 1.20 mg/dL [facility] Sodium 141 135 - 145 mmol/L [facility] [...] 107 mmol/L [facility] Carbon Dioxide 26 22 - 31 mmol/L [facility] Anion Gap 14 5 - 15 mmol/L [facility] Calcium 9.3 8.5 - 10.5 mg/dL [facility] Protein, Total 6.9 6.1 - 8.0 gm/dL [facility] Albumin 4.2 3.2 - 5.2 gm/dL [facility] Aspartate Aminotransferase 17 0 - 30 unit/L [facility] Alanine Aminotransferase 16 0 - 30 unit/L [facility] Alkaline Phosphatase 75 40 - 104 unit/L [facility] Bilirubin, Total 0.5 0.2 - 1.3 mg/dL [facility] Est Glomerular Filtration Rate 58(L) >=60 [facility] Comment: The reported eGFR should be multiplied by 1.2 for patients. The MDRD is not an appropriate measure of renal function for patients with body mass extremes or in patients with acute kidney failure. http://INcubes.TMS/DHnkdep http://INcubes.TMS/DHMCnkf Blood specimen (specimen) 03/03/2017 7:50 AM EDT 03/03/2017 8:03 AM EDT Narrative Resulting Agency Comment Spec In Lab Malika Chen MD CHEMISTRY ORDERABLE S [facility] [place] [address] documented in this encounter Visit Diagnoses Diagnosis Malignant neoplasm of left breast in female, estrogen receptor positive, unspecified site of breast documented in this encounter Care Teams Wreath Maker Relationship Specialty Start Date End Date Ana Her MD [address] [facility] [address] [place] [address] PCP - General 07/29/13 documented as of this encounter
--- OUTSIDE RECORDS SUMMARY | 2024-05-02 09:41 | XMS_ITS | Encounter Summary ---
Author Organization [facility] Address [place] [address] Care Team Providers Care Steel Layer Name Role Phone Ana Her MD Primary Care Provider [phone] Encounter Details Date Type Department Care Team (Latest Contact Info) Description 02/23/2017 3:50 PM EDT - 02/23/2017 11:59 PM EDT Hospital Encounter Radiology Library at [facility] [place] [phone] Jackie Cisneros APRN [address] [place] [address] Left breast mass Discharge Disposition: Home Social [...] recommended. Please note: The interpretation of the [facility] Breast Imaging Radiologist subspecialist may differ from the original radiologists interpretation. This is usually not due to a deficiency of the original interpreting radiologist, rather due to the greater skill level afforded by sub-specialization in the field and/or reasonable variations in interpretations. If you have a concern regarding the D-H interpretation you may contact the [facility] Breast Compliance Nurse Office at . I have personally reviewed [...] care of this patient. STUDIES FROM: [facility] DATES: Screening mammogram 02/12/2017, diagnostic mammogram [...] the care of thispatient. STUDIES FROM: [facility] DATES: Screening mammogram 02/12/2017, diagnostic mammogram [...] recommended. Please note: The interpretation of the [facility] BreastImaging Radiologist subspecialist may differ from the original radiologists interpretation. This is usually not due to a deficiency of the original interpreting radiologist, rather due to the greater skill level affordedby sub-specialization in the field and/or reasonable variations ininterpretations. If you have a concern regarding the D-H interpretation you may [facility] at . I have personally reviewed the image(s) and the residents interpretationand agree with the findings, ROBERT THOMPSON at 02/24/2017 8:41 AM 8:41 AM Jackie Cisneros W[facility] IM[facility] OUTSIDE INTERPRE TATION ORDERABLES documented in this encounter Visit Diagnoses Diagnosis Left breast mass Lump or mass in breast documented in this encounter Care Teams Steel Layer Relationship Specialty Start Date End Date Ana Her MD [address] [place] [address] PCP - General 07/29/13 documented as of this encounter
--- OUTSIDE RECORDS SUMMARY | 2024-05-02 09:41 | XMS_ITS | Encounter Summary ---
[place] [address] Care Team Providers Care Home Care Coordinator Name Role Phone Ana Her MD Primary Care Provider Encounter Details Date Type Department Care Team (Late st Contact Info) Description 03/30/2017 11:19 AM EST Anesthesia Event [place] [address] Bridgette Mclaughlin MD Collins, Sarah J, SOLVENT PROCESS EXTRACTOR OPERATOR [address] [place] [address] Anesthesia Record Procedure Summary Procedure Name Responsible [...] 0815; median cubital vein (antecubital fossa), right; [id number] catheter system; 20 gauge, 1 in length; [...] Bridgette Mclaughlin - 03/30/2017 2:13 PM EST [facility] Department of Anesthesiology Post-procedure Note Patient: Digna Olson Procedure Summary Date Anesthesia Start Anesthesia Stop Room / Location 03/30/17 1119 1239 [facility] OR 24 / MH MAIN [...] All Anesthesia Providers: Anesthesiologist: Bridgette Mclaughlin MD SOLVENT PROCESS EXTRACTOR OPERATOR: Laura Koo CRNA Most Recent Vitals: 03/30/17 [...] risks discussed with patient. Plan discussed with SOLVENT PROCESS EXTRACTOR OPERATOR. [facility] Staff Note documented in this encounter [...] r documented in this encounter Care Teams Home Care Coordinator Relationship Specialty Start Date End Date Ana Her MD [facility] [address] [place] [address] PCP - General 07/29/13 documented as of this encounter
--- OUTSIDE RECORDS SUMMARY | 2024-05-02 09:41 | XMS_ITS | Clinical Summary ---
Author Organization [facility] Address [address] [place] [address] Care Team Providers Care Manager Switch Name Role Phone Unknown, Provider MD Primary [...] COVID-19 Vaccine ( season) 2024 Care Teams Manager Switch Relationship Specialty Start Date End Date Unknown, Provider, PCP - General 01/13/14
--- OUTSIDE RECORDS SUMMARY | 2024-05-02 09:41 | XMS_ITS | Encounter Summary ---
Author Organization [facility] [place] [address] Care Team Providers Care Report Analyst Name Role Phone Ana Her MD Primary Care Provider [phone] Encounter Details Date Type Department Care Team (Late st Contact Info) Description 03/04/2017 Orders Only [place] [address] Malika Chen MD [facility] [place] [address] Malignant neoplasm of upper-outer quadrant of left [...] MD IMG MAMMO ORDERABLE S * Mammo [place] Node Injection (03/30/2017 9:01 AM EST) Anatomical [...] was present with the resident for the raroyo component(s) of the procedure and otherwise remained [...] positive documented in this encounter Care Teams Report Analyst Relationship Specialty Start Date End Date Ana Her MD [address] [facility] 1 [place] [address] PCP - General 07/29/13 documented as of this encounter
--- OUTSIDE RECORDS SUMMARY | 2024-05-02 09:41 | XMS_ITS | Encounter Summary ---
Author Organization [facility] [place] [address] Care Team Providers Care Cleaner Operator Name Role Phone Ana Her MD Primary Care Provider [phone] Encounter Details Date Type Department Care Team (Latest Contact Info) Description 02/25/2017 1:32 PM EDT - 02/25/2017 1:35 PM EDT Hospital En[place] [phone] Maryam Yee MD [facility] [place] [address] Abnormal mammogram Discharge Disposition: Home Social History [...] PM EDT 02/25/2017 3:02 PM EDT Narrative [facility] - 02/25/2017 3:02 PM EDT Specimen requisition ordered. ??Separate Pathology report to follow Enzo Burkett MD PATHOLOGY/CYTOLOGY O SHANTAL [facility] [place] [address] documented in this encounter Visit Diagnoses Diagnosis [...] mg documented in this encounter Care Teams Cleaner Operator Relationship Specialty Start Date End Date Ana Her MD [address] [place] [address] PCP - General 07/29/13 documented as of this encounter
--- OUTSIDE RECORDS SUMMARY | 2024-05-02 09:41 | XMS_ITS | Encounter Summary ---
[place] [address] Care Team Providers Care Physicist Light And Optics Name Role Phone Ana Her MD Primary Care Provider [phone] Encounter Details Date Type Department Care Team (Late st Contact Info) Description 07/26/2013 Orders [place] [address] Ana Her MD [facility] [address] [place] [address] Social History Tobacco Use Types Packs/Day Years [...] is a Non-reportable exam Ana Her MD [facility] FILM LIBRARY ORD ERABLES documented in this encounter Visit Diagnoses Not on filedocumented in this encounter Care Teams Physicist Light And Optics Relationship Specialty Start Date End Date Ana Her MD [address] [place] [address] PCP - General 07/29/13 documented as of this encounter
--- OUTSIDE RECORDS SUMMARY | 2024-05-02 09:41 | XMS_ITS | Encounter Summary ---
Author Organization [facility] Address [address] [place] [address] Care Team Providers Care Platform Stapler Name Role Phone Unknown, Provider MD Primary Care Provider Unava ilable Encounter Details Date Type Department Care Team (Late st Contact Info) Description 11/19/2023 Lab Requisition [facility] Pathology & Laboratory Medicine - [facility] [address] [place], [place] [address] Outr Resulting Lab, Provider Social History Tobacco [...] 201 - 352 mg/dL 11/20/2023 9:[address] [facility] Blood VENOUS BLOOD / Unknown 11/19/2023 6:05 EDT 11/19/2023 17:32 EDT us Provider Outr Resulting Lab CHEMISTRY & BLOOD GA S ORDERABLES Final Result [facility] [address] [place], [place] [address] documented in this encounter Visit Diagnoses Not on filedocumented in this encounter Care Teams Platform Stapler Relationship Specialty Start Date End Date Unknown, Provider, PCP - General 01/13/14 documented as of this encounter
--- OUTSIDE RECORDS SUMMARY | 2024-05-02 09:41 | XMS_ITS | Encounter Summary ---
[place] [address] Care Team Providers Care Epoxy Specialist Name Role Phone Ana Her MD Primary Care Provider [phone] Reason for Visit * Reason Comments Establish Care * Consultation (Routine) - Specialty Diagnoses / Procedures Referred By Christiano hackett Referred To Contact Hematology and Oncology Diagnoses Other abnormal and inconclusive findings on diagnostic imaging of breast abnormal mammo, left breast Jackie Cisneros, WENDY [address] [place] [address] [facility] [address] [place] [address] Referral ID Status Reason Start Date Expiration Date V isits Requested Visits Authorized [id number] Consult, Test & Treat Connection [facility] 02/17/2017 05/20/2017 6 6 Encounter Details Date Type Department Care Team (Late st Contact Info) Description 03/03/2017 9:00 AM EDT Office Visit [place] [address] Malika Chen MD [facility] [place] [address] Argentina Sanchez, RN Malignant neoplasm [...] she will meet with medical and radiation ([facility]) oncologists after surgery. 4. Contact phone number for questions or concerns in the immediate post- operative period. 5. Comprehensive Breast Program Binder. 6. Post Breast Surgery Exercises handout created by physical therapists at [facility]. 7. Breast Cancer Treatment Process care map [...] obtained which revealed IDC which is ER/OR+, her2-. She has no known breast masses, no adenopathy, no nipple discharge. Alma Delia had a bone scan in [place] which was read as possible metastasis in the left tibia. Of note- she fractured this area recently. She has recovered well. PMH HNT NIDDM not on meds Spinal stenosis Fractured left tibial plateau December, GERD FH: Maternal first cousin with breast cancer Brother with rectal cancer Sister with PE SH: lives alone. Has good support from sisters who live in [place]. Non smoker. Has a son who lives [...] 71 yo female with radiographic stage I ER/OR+, HER2- IDC of the left breast. No [...] positive documented in this encounter Care Teams Epoxy Specialist Relationship Specialty Start Date End Date Ana Her MD [address] [place] [address] PCP - General 07/29/13 documented as of this encounter
--- OUTSIDE RECORDS SUMMARY | 2024-05-02 09:41 | XMS_ITS | Encounter Summary ---
Author Organization [facility] Address [facility] [place] [address] Care Team Providers Care Cement Worker Name Role Phone Unavailable Primary Care Provider Unavailabl e Encounter Details Date Type Department Care Team (Latest Contact Info) Description 03/19/2006 - 03/19/2006 11:59 PM EST Hospital Encounter Radiology Library at [facility] [place] [address] Jackie Cisneros APRN [facility] [place] [address] [place] [address] Discharge Disposition: Home Social History Tobacco Use [...] for storage only and is auto-finalizing. Jackie Csineros APRN IMG FILM LIBRARY ORD ERABLES DH NADINE Sethi documented in this encounter Visit Diagnoses Not on filedocumented in this encounter
--- OUTSIDE RECORDS SUMMARY | 2024-05-02 09:41 | XMS_ITS | Encounter Summary ---
Author Organization [facility] [place] [address] Care Team Providers Care Dental Front Office Assistant Name Role Phone Ana Her MD Primary Care Provider [phone] Encounter Details Date Type Department Care Team (Latest Contact Info) Description 02/25/2017 2:59 PM EDT - 02/25/2017 11:59 PM EDT Hospital Encounter [place] [phone] Enzo Burkett MD Abnormal finding on breast [...] Report (02/25/2017 3:01 PM EDT) Final Diagnosis [id number] ? Location: 3L The signing pathologist has [...] FISH. ??Direct analysis was performed using the Web Designed Rooms Kit. ??Slide adequacy and signal enumeration were [...] factor receptor 2 testing in breast cancer: [place] [employer] of Clinical On[employer]/College of [place] [employer]ologists clinical practice guideline update. J Clin Oncol. 2013 Nov . Reviewed by: Kyara Logan MD Maintenance Engineer Oil Field, Molecular Pathology _ Electronically signed by: ??Epifanio Serra MD Verified: ??03/04/2017 ?Pathologist Performed at: ??-[facility] Dept. of Pathology, [place], [place] ? Addendum ADDENDUM DISCUSSION Immunohistochemist ry Studies Specimen: Left breast, core needle biopsy (A1) ER immunoreactivity: Positive ( ??>90% cancer cells with immunostaining) Stain intensity: Strong . ADDENDUM DISCUSSION AZ immunoreactivity: Positive ( ??>90% cancer cells with [...] The assays were performed according to the hand paint mixer ' s instructions using Anti-ER (SP1) and Anti-AZ (16) antibodies. Electronically signed by: ??Epifanio Serra MD Verified: ??02/27/2017 ?Pathologist Performed at: ??-[facility] Dept. 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 of Pathology, [place], [place] DISCUSSION Studies for ER, AZ, and HER2 have been ordered; results will [...] g: (T4) ??elian 03/04/2017 2:01 PM EDT [facility] BREAST STRUCTURE / Unknown 02/25/2017 3:01 PM EDT 02/25/2017 3:01 PM EDT Enzo Burkett MD PATHOLOGY/CYTOLOGY O RDERABLES [facility] [place] [address] documented in this encounter Visit Diagnoses Diagnosis Abnormal finding on breast imaging Other (abnormal) findings on radiological examination of breast documented in this encounter Care Teams Dental Front Office Assistant Relationship Specialty Start Date End Date Ana Her MD [address] [place] [address] PCP - General 07/29/13 documented as of this encounter
--- OUTSIDE RECORDS SUMMARY | 2024-05-02 09:41 | XMS_ITS | Encounter Summary ---
Author Organization [facility] [place] [address] Care Team Providers Care Council Member Name Role Phone Ana Her MD Primary Care Provider [phone] Encounter Details Date Type Department Care Team (Latest Contact Info) Description 02/25/2017 1:31 PM EDT Hospital En[place] [address] Maryam Yee MD [facility] [place] [address] Abnormal mammogram Discharge Disposition: Home Social History [...] unspecified documented in this encounter Care Teams Council Member Relationship Specialty Start Date End Date Ana Her MD [address] [place] [address] PCP - General 07/29/13 documented as of this encounter
--- OUTSIDE RECORDS SUMMARY | 2024-05-02 09:41 | XMS_ITS | Encounter Summary ---
[place] [address] Care Team Providers Care Gas Shovel Operator Name Role Phone Ana Her MD Primary Care Provider [phone] Encounter Details Date Type Department Care Team (Late st Contact Info) Description 02/27/2017 Telephone [place] [phone] Argentina Sanchez RN Social History Tobacco Use [...] a 71 y.o. 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 Alma Delia sounds positive and has support. She will have someone accompany her to appointments. She appears to be coping well but is anxious to meet with a breast surgeon to determine a treatment plan. Alma Delia have a bone SPECT done 1-2 months ago at [facility] and her doctor there questioned an [...] on filedocumented in this encounter Care Teams Gas Shovel Operator Relationship Specialty Start Date End Date Ana Her MD [address] [place] [address] PCP - General 07/29/13 documented as of this encounter
--- OUTSIDE RECORDS SUMMARY | 2024-05-02 09:41 | XMS_ITS | Encounter Summary ---
Author Organization [facility] [place] [address] Care Team Providers Care Line Installation Supervisor Name Role Phone Ana Her MD Primary Care Provider [phone] Encounter Details Date Type Department Care Team (Late st Contact Info) Description 08/16/2014 Orders Only Functional [facility] [address] [place] [address] Khari Martínez MD Social History Tobacco Use [...] on filedocumented in this encounter Care Teams Line Installation Supervisor Relationship Specialty Start Date End Date Ana Her MD [facility] [address] [facility] [address] [place] [address] PCP - General 07/29/13 documented as of this encounter
--- OUTSIDE RECORDS SUMMARY | 2024-05-02 09:41 | XMS_ITS | Encounter Summary ---
[place] [address] Care Team Providers Care Marketing Project Lead Name Role Phone Ana Her MD Primary Care Provider [phone] Reason for Visit * Reason Comments Low Back Pain Bilateral Hip Pain when standing or wal jaquelin Encounter Details Date Type Department Care Team (Late st Contact Info) Description 09/12/2014 11:20 AM EDT Office [place] [phone] Kris Benoit MD Neurogenic claudication due to [...] pain free. Lumbar MRI from 08/16/2014 from [facility] is notable for multilevel degenerative changes L2-L3, L3-L4, L4-L5, L5-S1. At L2-L3, she has zoxxwewg-xa-wwwjyv spinal stenosis, but she has no leg [...] claudication documented in this encounter Care Teams Marketing Project Lead Relationship Specialty Start Date End Date Ana Her MD [address] [place] [address] PCP - General 07/29/13 documented as of this encounter
--- OUTSIDE RECORDS SUMMARY | 2024-05-02 09:41 | XMS_ITS | Encounter Summary ---
Author Organization [facility] Address [facility] [place] [address] Care Team Providers Care Ballast Inspector Name Role Phone Unavailable Primary Care Provider Unavailabl e Encounter Details Date Type Department Care Team (Latest Contact Info) Description 12/08/2008 - 12/08/2008 11:59 PM EDT Hospital Encounter Radiology Library at [facility] [place], [facility] [place] [address] Jackie Cisneros APRN [facility] [place] [address] [place] [address] Discharge Disposition: Home Social History Tobacco Use [...] Only Mammo (12/08/2008 12:00 AM EDT) Narrative [facility] - 02/23/2017 3:30 PM EDT This exam is for storage only and is auto-finalizing. Jackie Cisneros APRN IMG FILM LIBRARY ORD ERABLES NADINE Sethi documented in this encounter Visit Diagnoses Not on filedocumented in this encounter
--- OUTSIDE RECORDS SUMMARY | 2024-05-02 09:41 | XMS_ITS | Encounter Summary ---
Author Organization [facility] [place] [address] Care Team Providers Care Concrete Stone Fabricator Name Role Phone Ana Her MD Primary Care Provider [phone] Encounter Details Date Type Department Care Team (Late st Contact Info) Description 03/30/2017 9:30 AM EST - 03/30/2017 11:28 AM EST Surgery [place] [phone] Brant Chen MD [facility] [place] [address] MASTECTOMY PARTIAL (WRVU 10.13) Social History Tobacco [...] shower 24 hours Activity as tolerated Call [phone] with any questions Do not soak incision [...] was obtained which revealed IDC which is ER/MT+, her2-. She has no known breast masses, no adenopathy, no nipple discharge. ?? Alma Delia had a bone scan in [place] which was read as possible metastasis in the left tibia. Of note- she fractured this area recently. She has recovered well. ?? PMH HNT NIDDM not on meds Spinal stenosis Fractured left tibial plateau [place], 2017 GERD ?? FH: Maternal first cousin with breast cancer Brother with rectal cancer Sister with PE ? SH: lives alone. Has good support from sisters who live in [place]. Non smoker. Has a son who lives [...] 71 yo female with radiographic stage I ER/MT+, HER2- IDC of the left breast. No [...] Miscellaneous Notes * Op Note - Brant Chne MD - 03/30/2017 12:[address] [facility] Operative Note Patient Name: Digna Olson : [id number] MR#: [id number] Case Date: 03/30/2017 Surgeon: Surgeon(s) and Role: [...] [place] [address]. Remaining count within the axilla was 1982. [...] PATHOLOGY/CYTOLOGY ORDERABLES [facility] [place] [address] * Specimen to Pathology (surgical or derm) (03/30/2017 12:08 PM EST) AP Specimen 03/30/2017 12:0 8 PM EST 03/30/2017 12:08 PM EST Narrative [facility] - 03/30/2017 12:08 PM EST Specimen requisition ordered. ??Separate Pathology report to follow Brant Chen MD PATHOLOGY/CYTOLOGY ORDERABLES Performing Organization Address [facility] Co de Phone Number [facility] [place] [address] * Specimen to Pathology (surgical or derm) (03/30/2017 12:00 PM EST) AP Specimen 03/30/2017 12:0 0 PM EST 03/30/2017 12:00 PM EST Narrative [facility] - 03/30/2017 12:00 PM EST Specimen requisition ordered. ??Separate Pathology report to follow Brant Chen MD PATHOLOGY/CYTOLOGY ORDERABLES Performing Organization Address [facility] [place] [address] * Specimen to Pathology (surgical or derm) (03/30/2017 11:51 AM EST) AP Specimen 03/30/2017 11:5 1 AM EST 03/30/2017 11:51 AM EST Narrative [facility] - 03/30/2017 11:51 AM EST Specimen requisition ordered. ??Separate Pathology report to follow Brant Chen MD PATHOLOGY/CYTOLOGY ORDERABLES Performing Organization Address [facility] Co de Phone Number [facility] [place] [phone] * Surgical Pathology Report (03/30/2017 11:50 AM EST) Final Diagnosis [id number] ? Location: [facility]; [facility]; A The signing pathologist has (i) examined the relevant preparation(s) for the specimen(s) and (ii) rendered or confirmed the diagnosis(es). . ?Surgical Pathology DIAGNOSIS A,B - See Synoptic C - Left breast, Deep/lateral margin re-excision - ?Benign fatty breast tissue. D - Left breast, Superficial margin re-excision - ?Benign fatty breast tissue. See Note Note - [place] ink (indicating additional cranial margin) is also present on this superficial margin re-excision. ---- Specimen Parts: ?? A - Left axilliary sentinel node B - Left breast partial mastectomy Specimen ? Procedure: ??Excision with image-guided localization ? Lymph Node Sampling: ?? [place] lymph node(s) ? Specimen Laterality: ?? Left [...] not present in specimen Lymph Nodes ? [place] Lymph Nodes: ?? [place] lymph node biopsy performed ? Number of [place] Nodes Examined: ?3 ? Number of Lymph [...] DO Verified: ??04/01/2017 ?Pathologist Performed at: ??-[facility] Dept. of Pathology, [place], [place] CLINICAL INFORMATION Specimen Submitted: A - [...] and there are ??no close margins. per [facility] . Specimen Description: According to the established protocol the ink designations are red (medial), yellow (lateral), orange (cranial), green (caudal), black (deep) and blue (superficial). Tissue Sections: The specimen is serially sectioned perpendicular to the long axis from lateral to medial into X slices, each averaging 0.45 cm in thickness. LESION Description: Biopsy site. Size: 0.8 x 0.4 x 0.4 cm. Color: [place] and yellow. Consistency: Soft. Location: Slices III and IV. Nearest Margin: 0.6 cm to the cranial margin. Other Margins: 0.8 cm to the deep margin, 1.0 cm to the superficial margin, ? > 2 cm from all other margins. OTHER Parenchyma: Predominately fatty with scant fibrous tissue. Wire/Clip: Biopsy marker clip identified within slice IV. SECTIONS/PROCESSI NG: (1) traffic workforce representative slice I, lateral margin; (2) slice III, lesion to cranial margin; (3-5) remainder of slice III; (6) slice IV, lesion to cranial margin (clip); (7-8) remainder of slice IV; (9) traffic workforce representative slice V; (10) traffic workforce representative slice X, medial margin. (R10) Ischemic [...] PATHOLOGY/CYTOLOGY ORDERABLES [facility] [place] [address] * Mammo Direct Digital Left (03/30/2017 9:15 [...] Procedure), Routine 0930 (Given - Provid er: nAna Coy RN) ceFAZolin (ANCEF) 2g in dextrose [...] Routine documented in this encounter Care Teams Concrete Stone Fabricator Relationship Specialty Start Date End Date Ana Her MD [address] [place] [address] PCP - General 07/29/13 documented as of this encounter
--- OUTSIDE RECORDS SUMMARY | 2024-05-02 09:41 | XMS_ITS | Encounter Summary ---
[place] [address] Care Team Providers Care Production Administrative Assistant Name Role Phone Ana Her MD Primary Care Provider [phone] Reason for Visit * Reason Onset Date Comments Referral 07/29/2013 Encounter Details Date Type Department Care Team (Late st Contact Info) Description 07/29/2013 Tele[place] [phone] Sophia Palacios Referral Social History Tobacco Use [...] on filedocumented in this encounter Care Teams Production Administrative Assistant Relationship Specialty Start Date End Date Ana Her MD [address] [facility] [address] [place] [address] PCP - General 07/29/13 documented as of this encounter
--- OUTSIDE RECORDS SUMMARY | 2024-05-02 09:41 | XMS_ITS | Encounter Summary ---
Author Organization [facility] Address [facility] [place] [address] Care Team Providers Care Body Piercer Name Role Phone Unavailable Primary Care Provider Unavailabl e Encounter Details Date Type Department Care Team (Latest Contact Info) Description 11/12/2007 - 11/12/2007 11:59 PM EDT Hospital Encounter Radiology Library at [facility] [place], [facility] [place] [address] Jackie Cisneros APRN [facility] [place] [address] Discharge Disposition: Home Social History Tobacco Use [...] Only Mammo (11/12/2007 12:00 AM EDT) Narrative [facility] - 02/23/2017 3:31 PM EDT This exam is for storage only and is auto-finalizing. Jackie Cisneros APRN IMG FILM LIBRARY ORD ERABLES NADINE Sethi documented in this encounter Visit Diagnoses Not on filedocumented in this encounter
--- OUTSIDE RECORDS SUMMARY | 2024-05-02 09:41 | XMS_ITS | Encounter Summary ---
Author Organization [facility] Address [address] [place] [address] Care Team Providers Care Penciller Name Role Phone Unavailable Primary Care Provider Unavailabl e Encounter Details Date Type Department Care Team (Latest Contact Info) Description 01/10/2014 20:50 EDT - 01/10/2014 23:59 EDT Hospital Encounter [facility] [address] [place] [address] Unknown, Provider, MD Discharge Disposition: Home or [...]
--- OUTSIDE RECORDS SUMMARY | 2024-05-02 09:41 | XMS_ITS | Encounter Summary ---
Author Organization [facility] [address] Care Team Providers Care Field Research Assistant Name Role Phone Ana Her MD Primary Care Provider [phone] Encounter Details Date Type Department Care Team (Late st Contact Info) Description 03/19/2017 Telephone [place] [address] Malika Chen MD [facility] [place] [address] Social History Tobacco Use Types Packs/Day Years [...] no unexpected bleeding. Surgery is scheduled in [facility]. documented in this encounter Plan of Treatment Not on file documented as of this encounter Visit Diagnoses Not on filedocumented in this encounter Care Teams Field Research Assistant Relationship Specialty Start Date End Date Ana Her MD [address] [facility] [place] [address] PCP - General 07/29/13 documented as of this encounter
--- OUTSIDE RECORDS SUMMARY | 2024-05-02 09:41 | XMS_ITS | Encounter Summary ---
Author Organization [facility] Address [address] [place] [address] Care Team Providers Care Bicycle Repairman Name Role Phone Unknown, Provider MD Primary Care Provider Unava ilable Encounter Details Date Type Department Care Team (Late st Contact Info) Description 10/26/2022 Lab Requisition [facility] Pathology & Laboratory Medicine - [facility] [address] [place] [address] Outr Resulting Lab, Provider Social History Tobacco [...] Neg and Giardia Antigen Neg 13:48 EDT [facility] Feces SPECIMEN FROM RECTUM / Unknown 10/25/2022 15:00 EDT 10/26/2022 15:25 EDT us Provider Outr Resulting Lab MICROBIOLOGY - GENER AL ORDERABLES Final Result [facility] [address] [place] [address] * FECAL BACTERIAL PATHOGENS BY PCR (10/25/2022 15:00 EDT) Salmonella PCR Negative Negative 10/26/2022 19:17 EDT [facility] Shigella/Enteroin vasive E. coli Negative Negative 10/26/2022 19:17 EDT [facility] HN LAB CAMPYLOBACTER PCR Negative Negative 10/26/2022 19:17 EDT [facility] Shiga Toxin PCR Negative Negative 19:17 EDT [facility] Feces SPECIMEN FROM RECTUM / Unknown 10/25/2022 15:00 EDT 10/26/2022 15:25 EDT us Provider Outr Resulting Lab MICROBIOLOGY - GENER AL ORDERABLES Final Result Performing Organization Address [facility] Co de Phone Number [facility] [address] [place] [address] * OVA/PARASITE EXAM (10/25/2022 15:00 EDT) Parasite No ova and parasites seen. 10/28/2022 15:08 EDT [facility] Feces SPECIMEN FROM RECTUM / Unknown 10/25/2022 15:00 EDT 10/26/2022 15:25 EDT Narrative [facility] - 10/28/2022 15:08 EDT (If Cryptosporidium, Cyclospora, or Microsporidium are suspected, specific tests must be requested.) Single negative specimen does not rule out the possibility of a parasitic infection. us Provider Outr Resulting Lab MICROBIOLOGY - GENER AL ORDERABLES Final Result Performing Organization Address City/[facility]/ZIP Co de Phone Number [facility] [address] [place] [address] documented in this encounter Visit Diagnoses Not on filedocumented in this encounter Care Teams Bicycle Repairman Relationship Specialty Start Date End Date Unknown, Provider, PCP - General 9/12/14 documented as of this encounter
--- OUTSIDE RECORDS SUMMARY | 2024-05-02 09:41 | XMS_ITS | Encounter Summary ---
Author Organization [facility] Address [facility] [place] [address] Care Team Providers Care Staff Radiologist Name Role Phone Ana Her MD Primary Care Provider [phone] Encounter Details Date Type Department Care Team (Latest Contact Info) Description 02/17/2017 - 02/17/2017 12:14 AM EDT Hospital Encounter Radiology Library at [facility] [place] [address] Maryam Yee MD [facility] [address] Screening breast examination Discharge Disposition: Home Social [...] Mammo (02/17/2017 12:00 AM EDT) Narrative [facility] - 02/19/2017 1:59 PM EDT This exam is for storage only and is auto-finalizing. Maryam Yee MD IMG FILM LIBRARY O RDERABLES Performing Organization Address City/State/[facility] Co de Phone Number [place], [place] documented in this encounter Visit Diagnoses Diagnosis Screening breast examination Other screening breast examination documented in this encounter Care Teams Staff Radiologist Relationship Specialty Start Date End Date Ana Her MD [address] [place] [address] PCP - General 07/29/13 documented as of this encounter
--- OUTSIDE RECORDS SUMMARY | 2024-05-02 09:41 | XMS_ITS | Encounter Summary ---
Author Organization [facility] Address [facility] [place] [address] Care Team Providers Care Machine Sprayer Name Role Phone Ana Her MD Primary Care Provider [phone] Encounter Details Date Type Department Care Team (Latest Contact Info) Description 02/12/2017 - 02/12/2017 11:59 PM EDT Hospital Encounter Radiology Library at [facility] [place] [address] Maryam Yee MD [facility] [place] [address] Screening breast examination Discharge Disposition: Home Social [...] Only Mammo (02/12/2017 12:00 AM EDT) Narrative [facility] - 02/19/2017 1:47 PM EDT This exam is for storage only and is auto-finalizing. Maryam Yee MD IMG FILM LIBRARY O RDERABLES Performing Organization Address City/State/[facility] Co de Phone Number [place], [place] documented in this encounter Visit Diagnoses Diagnosis Screening breast examination Other screening breast examination documented in this encounter Care Teams Machine Sprayer Relationship Specialty Start Date End Date Ana Her MD [address] [place] [address] PCP - General 07/29/13 documented as of this encounter
--- OUTSIDE RECORDS SUMMARY | 2024-05-02 09:41 | XMS_ITS | Encounter Summary ---
[place] [address] Care Team Providers Care Warehouse And Receiving Supervisor Name Role Phone Ana Her MD Primary Care Provider [phone] Reason for Visit * Reason Comments Low Back Pain Encounter Details Date Type Department Care Team (Late st Contact Info) Description 08/30/2014 8:35 AM EDT Office [place] [phone] Michelle Hurtado APRN [facility] [place] [address] Neurogenic claudication due to lumbar spinal stenosis [...] this encounter Progress Notes * Michelle Hurtado, MODEL AND DYE PERSON - 08/30/2014 9:37 AM EDT CHIEF COMPLAINT: [...] Treatments to date have included: LESIs in [place] at L4-5 in 2013-no relief, Flexeril-helpful, physical [...] 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 MEDICATIONS & ALLERGIES: [...] care of this patient. Michelle Hurtado MS, MODEL AND DYE PERSON, PIPELINES SUPERINTENDENT-[facility] documented in this encounter Plan of Treatment Not on file documented as of this encounter Visit Diagnoses Diagnosis Neurogenic claudication due to lumbar spinal stenosis Spinal stenosis, lumbar region, with neurogenic claudication documented in this encounter Care Teams Warehouse And Receiving Supervisor Relationship Specialty Start Date End Date Ana Her MD [address] [place] [address] PCP - General 07/29/13 documented as of this encounter
--- OUTSIDE RECORDS SUMMARY | 2024-05-02 09:41 | XMS_ITS | Encounter Summary ---
Author Organization [facility] Address [facility] [place] [address] Care Team Providers Care Production Line Worker Name Role Phone Unavailable Primary Care Provider Unavailabl e Encounter Details Date Type Department Care Team (Latest Contact Info) Description 04/04/2005 - 04/04/2005 11:59 PM EST Hospital Encounter Radiology Library at [facility] [place] [address] Jackie Cisneros APRN [facility] [place] [address] [place] [address] Discharge Disposition: Home Social History Tobacco Use [...]
--- OUTSIDE RECORDS SUMMARY | 2024-05-02 09:41 | XMS_ITS | Encounter Summary ---
Author Organization [facility] Address [address] [place] [address] Care Team Providers Care Director Of Health Care Marketing Name Role Phone Unknown, Provider Primary Care Provider Unava ilable Encounter Details Date Type Department Care Team (Late st Contact Info) Description 01/20/2020 Lab Requisition [facility] Pathology & Laboratory Medicine - [facility] [address] [place] [address] Outr Resulting Lab, Provider Social History Tobacco [...] rt-PCR Result NEGATIVE Negative 01/21/2020 16:10 EDT [facility] Comment: 2019-novel Coronavirus [...] in accordance with CLIA regulations, College [employer] (CAP) guidelines (Jul 21, 2019), and FDA guidance (Jul 02, 2019). This test is only for use under the Food and Drug Administration's Emergency Use Authorization. Swab ENTIRE NASOPHARYNX / Unknown 01/20/2020 10:30 EDT 01/20/2020 15:35 EDT us Provider Outr Resulting Lab MICROBIOLOGY - GENER AL ORDERABLES Final Result Performing Organization Address City/State/[facility] Co de Phone Number [facility] [place], [place] * COVID-19 TESTING (01/20/2020 10:30 EDT) COVID-19 rt-PCR Result NEGATIVE Negative 01/21/2020 17:21 EDT [facility] Comment: 2019-novel Coronavirus (2019-nCoV) not [...] in accordance with CLIA regulations, College [employer] (CAP) guidelines (Jul 21, 2019), and FDA guidance (Jul 02, 2019). This test is only for use under the Food and Drug Administration's Emergency Use Authorization. Performing Lab [facility] 01/21/2020 17:21 EDT [facility] Swab 01/20/2020 10:3 0 EDT 01/20/2020 15:35 EDT us Provider Outr Resulting Lab MICROBIOLOGY - GENER AL ORDERABLES Final Result [facility] [address] [place] [address] [facility] [place], [place] documented in this encounter Visit Diagnoses Not on filedocumented in this encounter Care Teams Director Of Health Care Marketing Relationship Specialty Start Date End Date Unknown, Provider, PCP - General 01/13/14 documented as of this encounter
--- OUTSIDE RECORDS SUMMARY | 2024-05-02 09:41 | XMS_ITS | Encounter Summary ---
[place] [address] Care Team Providers Care Sharepoint Solutions Developer Name Role Phone Ana Her MD Primary Care Provider [phone] Encounter Details Date Type Department Care Team (Late st Contact Info) Description 03/18/2017 Telephone [place] [phone] Bryanna Marsh RN Social History Tobacco Use [...] notes she had a colonoscopy done at [facility] and developed atrial fibrillation; she has been started on blood thinners. She was just discharged from the [facility] hospital, and called us to let [...] give Digna a call her number is [phone]. The below is from Dr. Chen visit [...] on filedocumented in this encounter Care Teams Sharepoint Solutions Developer Relationship Specialty Start Date End Date Ana Her MD [address] [place] [address] PCP - General 07/29/13 documented as of this encounter
--- OUTSIDE RECORDS SUMMARY | 2024-05-02 09:41 | XMS_ITS | Patient Health Record ---
Author Organization [facility] Address [address] [place] [address] Care Team Providers Care Teletype Adjuster Name Role Phone Non Compass, Provider Primary [...] Medicare [address] [place] [id number] Digna Olson Self - patient is the insured [facility] Medicare Plan [address] [place], [place] [id number] Digna Olson Self - patient is the insured Medical (General) History Medical History History ICD Code Atrial fibrillation Hypertension Hypothyroidism Non insulin-dependent diabetes
--- OUTSIDE RECORDS SUMMARY | 2024-05-02 09:41 | XMS_ITS | Encounter Summary ---
Author Organization [facility] Address [address] [place] [address] Care Team Providers Care Mechanical Process Engineer Name Role Phone Unknown, Provider MD Primary Care Provider Unava ilable Encounter Details Date Type Department Care Team (Late st Contact Info) Description 04/06/2022 Lab Requisition [facility] Pathology & Laboratory Medicine - [facility] [address] [place] [address] Outr Resulting Lab, Provider Social History Tobacco [...] Salmonella PCR Negative Negative 04/06/2022 22:[address] [facility] Shigella/Enteroin vasive E. coli Negative Negative 04/06/2022 22:[address] [facility] HN LAB CAMPYLOBACTER PCR Negative Negative 04/06/2022 22:[address] [facility] Shiga Toxin PCR Negative Negative 22:[address] [facility] Feces SPECIMEN FROM RECTUM / Unknown 04/05/2022 10:41 EST 04/06/2022 18:31 EST us Provider Outr Resulting Lab MICROBIOLOGY - GENER AL ORDERABLES Final Result [facility] [address] [place] [address] documented in this encounter Visit Diagnoses Not on filedocumented in this encounter Care Teams Mechanical Process Engineer Relationship Specialty Start Date End Date Unknown, Provider, PCP - General 01/13/14 documented as of this encounter
--- OUTSIDE RECORDS SUMMARY | 2024-05-02 09:41 | XMS_ITS | Encounter Summary ---
Author Organization [facility] Address [facility] [place] [address] Care Team Providers Care Land Department Head Name Role Phone Ana Her MD Primary Care Provider [phone] Encounter Details Date Type Department Care Team (Latest Contact Info) Description 10/28/2016 - 10/28/2016 11:59 PM EDT Hospital Encounter Radiology Library at [facility] [place] [address] Ricky Lowry MD Discharge Disposition: Home Social [...] DXA Images (10/28/2016 12:00 AM EDT) Narrative [facility] - 04/24/2017 2:13 PM EST This exam is for storage only and is auto-finalizing. Ricky Lowry MD IMG FILM LIBRARY ORD ERABLES Performing Organization Address City/State/[facility] Co de Phone Number [place], [place] documented in this encounter Visit Diagnoses Not on filedocumented in this encounter Care Teams Land Department Head Relationship Specialty Start Date End Date Ana Her MD [address] [place] [address] PCP - General 07/29/13 documented as of this encounter
--- OUTSIDE RECORDS SUMMARY | 2024-05-02 09:41 | XMS_ITS | Encounter Summary ---
Author Organization [facility] Address [address] [place] [address] Care Team Providers Care Sausage Maker Name Role Phone Unknown, Provider Primary Care Provider Unava ilable Encounter Details Date Type Department Care Team (Late st Contact Info) Description 03/17/2017 Results Only [facility] [phone] Kat Lazaro MD [facility] [facility] [address] [place], [place] [id number] Social History Tobacco Use Types Packs/Day Years [...] ? DIGNA KIMBROUGH ? Accession #: ? [id number] ? : ? 1945 (Age: 71) ??F [...] (ASCP) 03/18/2017 8:14 AM End of Report [facility] 03/17/2017 16:1 5 EST 03/17/2017 16:15 EST us Kat Lazaro MD PATHOLOGY ORDERABLES Fin al Result [facility] [address] [place] [address] documented in this encounter Visit Diagnoses Not on filedocumented in this encounter Care Teams Sausage Maker Relationship Specialty Start Date End Date Unknown, Provider, PCP - General 01/13/14 documented as of this encounter
--- OUTSIDE RECORDS SUMMARY | 2024-05-02 09:41 | XMS_ITS | Encounter Summary ---
Author Organization [facility] Address [address] [place] [address] Care Team Providers Care Sales Financial Analyst Name Role Phone Unknown, Provider MD Primary Care Provider Unava ilable Encounter Details Date Type Department Care Team (Late st Contact Info) Description 08/12/2021 Lab Requisition [facility] Pathology & Laboratory Medicine - [facility] [address] [place] [address] Outr Resulting Lab, Provider Social History Tobacco [...] Priority Date/Time Associated Diagnosis Comments ZZCOVID-19 TEST [facility] PCR Today 08/12/2021 15:00 EDT COVID-19 TESTING Routine 08/12/2021 15:0 0 EDT documented in this encounter Results * [facility] (08/12/2021 15:00 EDT) Swab 08/12/2021 15:0 0 EDT 08/13/2021 16:56 EDT us Provider Outr Resulting Lab MICROBIOLOGY - GENER AL ORDERABLES Final Result [facility] [address] [place] [address] * COVID-19 TESTING (08/12/2021 15:00 EDT) COVID-19 rt-PCR Result Negative Negative 08/14/2021 11:53 EDT [facility] Comment: This test [...] was performed using the palomo SARS-CoV-2 assay ([employer] on the Palomo 6800 System Performing Lab [facility] [address] [facility] 08/14/2021 11:53 EDT [facility] Swab 08/12/2021 15:0 0 EDT 08/13/2021 16:56 EDT us Provider Outr Resulting Lab MICROBIOLOGY - GENER AL ORDERABLES Final Result [facility] [address] [place] [address] documented in this encounter Visit Diagnoses Not on filedocumented in this encounter Care Teams Sales Financial Analyst Relationship Specialty Start Date End Date Unknown, Provider, PCP - General 01/13/14 documented as of this encounter
--- OUTSIDE RECORDS SUMMARY | 2024-05-02 09:41 | XMS_ITS | Encounter Summary ---
Author Organization [facility] [address] Care Team Providers Care Waitress Name Role Phone nAa Her MD Primary Care Provider [phone] Encounter Details Date Type Department Care Team (Latest Contact Info) Description 02/17/2017 12:15 AM EDT - 02/17/2017 11:59 PM EDT Hospital Encounter Radiology Library at [facility] [place] [address] Maryam Yee MD [facility] [place] [address] Screening breast examination Discharge Disposition: Home Social [...] (02/17/2017 12:15 AM EDT) Narrative [facility] - 02/19/2017 2:01 PM EDT This exam is for storage only and is auto-finalizing. Maryam Yee MD IMG FILM LIBRARY O RDERABLES [place], [place] documented in this encounter Visit Diagnoses Diagnosis Screening breast examination Other screening breast examination documented in this encounter Care Teams Waitress Relationship Specialty Start Date End Date Ana Her MD [address] [place] [address] PCP - General 07/29/13 documented as of this encounter
--- OUTSIDE RECORDS SUMMARY | 2024-05-02 09:41 | XMS_ITS | Encounter Summary ---
Author Organization [facility] [address] Care Team Providers Care Helicopter Repairer Name Role Phone Ana Her MD Primary Care Provider [phone] Encounter Details Date Type Department Care Team (Latest Contact Info) Description 02/25/2017 1:36 PM EDT - 02/25/2017 2:58 PM EDT Hospital En[place] [id number] Maryam Yee MD [facility] [place] [address] Abnormal mammogram Discharge Disposition: Home Social History [...] unspecified documented in this encounter Care Teams Helicopter Repairer Relationship Specialty Start Date End Date Ana Her MD [address] [place] [address] [address] [place] [address] PCP - General 07/29/13 documented as of this encounter
== END 2024-05-03 23:59 | disposition home or self-care (01) ==
LOC: CR 09:37
PROVIDERS: PCP Family Medicine; Visit Provider Internal Medicine Cardiovascular Disease
DX: Q22.8 Other congenital malformations of tricuspid valve (principal); Z95.2 Presence of prosthetic heart valve; Z51.89 Encounter for other specified aftercare
CPT/HCPCS: S9472

== ENCOUNTER 2024-06-03 10:28 | Outpatient (RCR) | payer MEDICARE, BC, SELFPAY ==
--- NOTE | 2024-05-11 09:45 | RT.EKG_ITS ---
APPROVED REPORT Exam: Resting ECG Reason for Exam: s/p cardioversion 05/05/24 Patient Location: O HR:78 bpm ECG Measurements Heart Rate 78 AXIS ME 209 P 262 QRSd 152 QRS -69 QT 459 T 29 QTc 523 Conclusion Sinus or ectopic atrial rhythm...P axis (-45,135) Atrial premature complex...SV complex w/ short R-R interval RBBB and LAFB...QRSd >120mS, axis(-40,240) Some atrial pacing Probable left ventricular hypertrophy...(RaVL+SV3)xQRSd >300
--- OUTSIDE RECORDS SUMMARY | 2024-05-11 11:30 | XMS_ITS | Encounter Summary ---
[place] [address] Care Team Providers Care Corporate Treasurer Name Role Phone Ana Her MD Primary Care Provider [phone] Encounter Details Date Type Department Care Team (Late st Contact Info) Description 10/23/2022 Telephone Mammography/[place] [phone] [place] [place] Social History Tobacco Use Types [...] filedocumented in this encounter Care Teams Corporate Treasurer Relationship Specialty Start Date End Date Ana Her MD [address] [place] [address] PCP - General 07/29/13 documented as of this encounter
--- OUTSIDE RECORDS SUMMARY | 2024-05-11 11:30 | XMS_ITS | Encounter Summary ---
[place] [address] Care Team Providers Care Managing Consultant Clinical Professor Name Role Phone Ana Her MD Primary Care Provider [phone] Reason for Visit * Auth/Cert Specialty Diagnoses / Procedures Referred By Christiano hackett Referred To Contact Diagnoses S/P repair of paraesophageal hernia Post-Op monitoring Procedures PRO LAPARSCOPY REPAIR PARAESOPHAGEAL HERNIA INCL FUNDOPLASTY W/O MESH LAPAROSCOPIC PARAESOPHAGEAL HERNIA REPAIR W/FUNDOPLASTY, W/O MESH (WRVU 26.6) MODIFIER TOUPET FUNDOPLASTY Shania Will MD [facility] [place] [address] [facility] Referral ID Status Reason Start Date Expiration Date Visits Re quested Visits Authorized [id number] 1 1 Encounter Details Date Type Department Care Team (Latest Contact Info) Description 03/05/2022 11:55 AM EDT - 03/07/2022 10:00 AM EDT Hospital Encounter [place] [id number] Shania Will MD [facility] [place] [address] Discharge Disposition: Home Social History Tobacco Use [...] of left breast of female, estrogen receptor [id number], Z17.0 ??? Anemia D64.9 ??? Aortic valve [...] Per chart review, her creatinine levels in 4093-2995 ranged from 0.87-1.50 indicative of possible undiagnosed [...] Shania Will MD General Surgery at [facility] Arrive at: Charge Nurse Area [phone] Instructions Given to Patient at Discharge: Patient [...] hours please call the Surgery Clinic at [phone] before 5 PM on weekdays. For questions after hours and on weekends please call the hospital operator lights at [phone] and ask for the General Surgery resident carton counter feeder. They may not be familiar with your [...] post Sly diet, as instructed by the hose handler in the hospital for a period of [...] renal function. Please call the clinic at [phone] to confirm or reschedule. Future Appointments Date Time Provider Department Center 04/03/2022 12:00 PM Shania Will MD [facility] SURG [facility] General Instructions None Future Appointments and Orders Future Appointments and Orders Future Appointments Provider Department Dept Phone 04/03/2022 12:00 PM Shania Will MD General Surgery at [facility] Arrive at: Charge Nurse Area Signed: Shena Harden MD 03/07/22 7:18 AM [facility] 20[address] Primary Cullen Physician: MD Geovany David DR [facility] [id number] documented in this encounter Discharge Instructions * [...] hours please call the Surgery Clinic at [phone] before 5 PM on weekdays. For questions after hours and on weekends please call the hospital operator lights at [phone] and ask for the General Surgery resident carton counter feeder. They may not be familiar with your [...] post Sly diet, as instructed by the hose handler in the hospital for a period of [...] renal function. Please call the clinic at [phone] to confirm or reschedule. Future Appointments Date Time Provider Department Center 04/03/2022 12:00 PM Shania Will MD [facility] SUR[facility] documented in this encounter Medications at Time [...] Ocampo RN - 03/07/2022 10:25 AM EDT [facility] Short Stay Unit Discharge Note All [...] Sly Diet Education to pt Digna Olson. Retail Operations Manager metwith pt at bedside to deliver [...] she is noticing some overall improvement post op.Retail Operations Manager took note of this and encouraged [...] contact information provided. Pt appreciate of radio script writer's time. Nutrition to follow as [...] Perez MD 03/05/2022 Minimally Invasive Surgery Pager #[phone] * Lorrie Slater RN - 03/05/2022 6:46 [...] ?? She is followed by cardiology at [facility], and is on xarelto. ?? Impression: ??Symptomatic [...] of left breast of female, estrogen receptor [id number], Z17.0 ??? Anemia D64.9 ??? Aortic valve [...] 6.43) performed by Malika Chen MD at [facility] MAIN OR ??? PRO INTRAOP SENTINEL LYMPH ID W/DYE INJECTION Left 03/30/2017 ?? INTRAOPERATIVE ID (MAPPING) SENTINEL LYMPH NODE,INCLUDES INJECTION (WRVU 2.5) performed by Malika Chen MD at [facility] MAIN OR ??? PRO MASTECTOMY PARTIAL Left 03/30/2017 ?? MASTECTOMY PARTIAL (WRVU 10.13) performed by Malika Chen MD at [facility] MAIN OR ?? Cholecystectomy ?? Medications: [...] Operative Note Patient Name: Digna Olson : [id number] MR#: [id number] Case Date: 03/05/2022 Surgeon: Surgeon(s) and Role: [...] MD - 03/05/2022 2:32 PM EDT [facility] Operative Note Patient Name: Digna Olson : [id number] MR#: [id number] Case Date: 03/05/2022 Surgeon: Surgeon(s) and Role: [...] incision is completely closed without any wires, mauyr, drains or other devices Disposition: awakened from [...] Repair Paraesophageal Hernia Incl Fundoplasty W/O Mesh (74098) 03/05/2022 1:58 PM EDT Paraesophageal Hernia POCT GLUCOSE Routine 03/05/2022 12:18 PM EDT LAPAROSCOPIC PARAESOPHAGEAL HERNIA REPAIR W FUNDOPLASTY, W/O MESH Routine 03/05/2022 12:02 PM EDT documented in this encounter Results * (ABNORMAL) Differential, Automated (03/07/2022 5:08 AM EDT) Neutrophil % 80.0 % [facility] Neutrophil Absolute 5.30 1.70 - 6.10 x10(3)/mc L [facility] Lymph % 12.1 % [facility] Lymphocytes Abs 0.8(L) 0.9 - 3.2 x10(3)/mc L [facility] Monocyte % 7.6 % [facility] Monocyte Abs 0.5 0.3 - 0.9 x10(3)/mc L [facility] Eos % 0.0 % [facility] Eosinophils Abs 0.0 0.0 - 0.4 x10(3)/mc L [facility] Basophil % 0.0 % [facility] Baso Absolute 0.0 0.0 - 0.1 x10(3)/[facility] Immature Gran % 0.30 % [facility] Comment: Immature granulocytes(IG's)percentage and absolute count will include metamyelocytes, myelocytes, and promyelocytes. Blood smears from CBCs yielding IG's will be scanned manually for concordance. If this scan disagrees with the automated IG or if promyelocytes are noted, a manual differential will be performed. Immature Gran Absolute 0.02 0.00 - 0.04 x10(3)/[facility] Blood 03/07/2022 5:08 AM EDT 03/07/2022 5:19 AM EDT Narrative Resulting Agency Comment Spec In Lab Nino Levy MD HEMATOLOGY ORDERABLE S Performing Organization Address City/State/[facility] Co de Phone Number [facility] [place] [address] * (ABNORMAL) Hemogram (03/07/2022 5:08 AM EDT) White Blood Cell 6.6 4.0 - 9.5 x10(3)/[facility] Red Blood Cell 3.16(L) 4.00 - 5.21 x10(6)/[facility] Hemoglobin 10.7(L) 11.7 - 15.5 g/dL [facility] Hematocrit 31.7(L) 35.7 - 45.8 % [facility] Mean Cell Volume 100.3(H) 82.6 - 94.4 fL [facility] Mean Cell Hemoglobin 33.9(H) 27.1 - 32.0 pg [facility] Mean Cell Hemoglobin Concentration 33.8 31.7 - 35.0 g/dL [facility] Platelet 110(L) 145 - 357 x10(3)/[facility] RDW Standard Deviation 47.5(H) 37.0 - 46.0 fL [facility] RDW coefficient of variation 12.9 11.5 - 14.1 % [facility] Mean Platelet Volume 11.7 7.6 - 12.9 fL [facility] NRBC% auto 0.0 % [facility] NRBC Absolute 0.000 0.000 - 0.000 x10(3)/mc L [facility] Blood 03/07/2022 5:08 AM EDT 03/07/2022 5:19 AM EDT Narrative Resulting Agency Comment Spec In Lab Nino Levy MD HEMATOLOGY ORDERABLE S [facility] [place] [address] * Phosphorus (03/07/2022 5:08 AM EDT) Phosphorus 2.7 2.5 - 4.5 mg/dL [facility] Blood 03/07/2022 5:08 AM EDT 03/07/2022 5:19 AM EDT Narrative Resulting Agency Comment Spec In Lab Shania Will MD CHEMISTRY ORDERABLE S Performing Organization Address City/[facility]/ZIP Co de Phone Number [facility] [address] * Magnesium (03/07/2022 5:08 AM EDT) Magnesium 0.89 0.69 - 1.07 mmol/L [facility] Blood 03/07/2022 5:08 AM EDT 03/07/2022 5:19 AM EDT Narrative Resulting Agency Comment Spec In Lab Shania Will MD CHEMISTRY ORDERABLE S [facility] [place] [address] * (ABNORMAL) Basic Metabolic Panel (non-fasting) (03/07/2022 5:08 AM EDT) Glucose 111 65 - 199 mg/dL [facility] Comment:Diabetes: >=200 mg/d L plus symptoms Blood Urea Nitrogen 22(H) 8 - 18 mg/dL [facility] [...] 98 - 107 mmol/L [facility] Carbon Dioxide 22 22 - 31 mmol/L [facility] Anion Gap 9 5 - 15 mmol/L [facility] Calcium 9.2 8.5 - 10.5 mg/dL [facility] Est Glomerular Filtration Rate 64 >=60 mL/min/1. 73 m?? [facility] [...] Lab Shania Will [place] [address] * (ABNORMAL) Differential, Automated (03/06/2022 10:15 AM EDT) Pathologist [facility] Neutrophil % 90.7 % [facility] Neutrophil Absolute 5.79 1.70 - 6.10 x10(3)/ L [facility] Lymph % 5.0 % [facility] Lymphocytes Abs 0.3(L) 0.9 - 3.2 x10(3)/ L [facility] Monocyte % 3.8 % [facility] Monocyte Abs 0.2(L) 0.3 - 0.9 x10(3)/[facility] Eos % 0.0 % [facility] Eosinophils Abs 0.0 0.0 - 0.4 x10(3)/[facility] Basophil % 0.0 % [facility] Baso Absolute 0.0 0.0 - 0.1 x10(3)/ L [facility] Immature Gran % 0.50 % [facility] Comment: Immature granulocytes(IG's)percentage and absolute count will include metamyelocytes, myelocytes, and promyelocytes. Blood smears from CBCs yielding IG's will be scanned manually for concordance. If this scan disagrees with the automated IG or if promyelocytes are noted, a manual differential will be performed. Immature Gran Absolute 0.03 0.00 - 0.04 x10(3)/ L [facility] Blood 03/06/2022 10:1 5 AM EDT 03/06/2022 10:21 AM EDT Narrative Resulting Agency Comment Spec In Lab Maryam MUELLER [place] [address] * (ABNORMAL) Hemogram (03/06/2022 10:15 AM EDT) White Blood Cell 6.4 4.0 - 9.5 x10(3)/mc L [facility] Red Blood Cell 3.07(L) 4.00 - 5.21 x10(6)/mc L [facility] Hemoglobin 10.5(L) 11.7 - 15.5 g/dL [facility] Hematocrit 31.1(L) 35.7 - 45.8 % [facility] Mean Cell Volume 101.3(H) 82.6 - 94.4 fL [facility] Mean Cell Hemoglobin 34.2(H) 27.1 - 32.0 pg [facility] Mean Cell Hemoglobin Concentration 33.8 31.7 - 35.0 g/dL [facility] Platelet 111(L) 145 - 357 x10(3)/ L [facility] RDW Standard Deviation 47.2(H) 37.0 - 46.0 fL [facility] RDW coefficient of variation 12.9 11.5 - 14.1 % [facility] Mean Platelet Volume 11.5 7.6 - 12.9 fL [facility] NRBC% auto 0.0 % [facility] NRBC Absolute 0.000 0.000 - 0.000 x10(3)/mc L [facility] Blood 03/06/2022 10:1 5 AM EDT 03/06/2022 10:21 AM EDT Narrative Resulting Agency Comment Spec In Lab Maryam MUELLER HEMATOLOGY ORDERABL ES [facility] [place] [address] * Phosphorus (03/06/2022 10:15 AM EDT) Phosphorus 3.3 2.5 - 4.5 mg/dL [facility] Blood 03/06/2022 10:1 5 AM EDT 03/06/2022 10:21 AM EDT Narrative Resulting Agency Comment Spec In Lab Shania Will MD CHEMISTRY ORDERABLE S Performing Organization Address City/[facility]/ZIP Co de Phone Number [facility] [address] * Magnesium (03/06/2022 10:15 AM EDT) Magnesium 0.69 0.69 - 1.07 mmol/L [facility] Blood 03/06/2022 10:1 5 AM EDT 03/06/2022 10:21 AM EDT Narrative Resulting Agency Comment Spec In Lab Shania Will MD CHEMISTRY ORDERABLE S Performing Organization Address [facility] Co de Phone Number [facility] [address] * (ABNORMAL) Basic Metabolic Panel (non-fasting) (03/06/2022 10:15 AM EDT) Pathologist [facility] Glucose 155 65 - 199 mg/dL [facility] Comment:Diabetes: >=200 mg/d L plus symptoms Blood Urea Nitrogen 29(H) 8 - 18 mg/dL [facility] [...] 98 - 107 mmol/L [facility] Carbon Dioxide 23 22 - 31 mmol/L [facility] Anion Gap 10 5 - 15 mmol/L [facility] Calcium 8.9 8.5 - 10.5 mg/dL [facility] Est Glomerular Filtration Rate 45(L) >=60 mL/min/1. 73 m?? [facility] [...] MD CHEMISTRY ORDERABLE S Performing Organization Address City/State/[facility] Co de Phone Number [facility] [address] * (ABNORMAL) Differential, Automated (03/06/2022 4:29 AM EDT) Neutrophil % 90.5 % [facility] Neutrophil Absolute 4.47 1.70 - 6.10 x10(3)/mc L [facility] Lymph % 6.9 % [facility] Lymphocytes Abs 0.3(L) 0.9 - 3.2 x10(3)/mc L [facility] Monocyte % 2.2 % [facility] Monocyte Abs 0.1(L) 0.3 - 0.9 x10(3)/mc L [facility] Eos % 0.0 % [facility] Eosinophils Abs 0.0 0.0 - 0.4 x10(3)/mc L [facility] Basophil % 0.2 % [facility] Baso Absolute 0.0 0.0 - 0.1 x10(3)/mc L [facility] [...] Absolute 0.01 0.00 - 0.04 x10(3)/ L [facility] Blood 03/06/2022 4:29 AM EDT 03/06/2022 4:49 AM EDT Narrative Resulting Agency Comment Spec In Lab Prakash Mendez MD HEMATOLOGY ORDERABLE S [facility] [place] [address] * (ABNORMAL) Hemogram (03/06/2022 4:29 AM EDT) White Blood Cell 4.9 4.0 - 9.5 x10(3)/ L [facility] Red Blood Cell 3.08(L) 4.00 - 5.21 x10(6)/ L [facility] Hemoglobin 10.5(L) 11.7 - 15.5 g/dL [facility] Hematocrit 31.0(L) 35.7 - 45.8 % [facility] Mean Cell Volume 100.6(H) 82.6 - 94.4 fL [facility] Mean Cell Hemoglobin 34.1(H) 27.1 - 32.0 pg [facility] Mean Cell Hemoglobin Concentration 33.9 31.7 - 35.0 g/dL [facility] Platelet 104(L) 145 - 357 x10(3)/ L [facility] RDW Standard Deviation 47.5(H) 37.0 - 46.0 fL [facility] RDW coefficient of variation 12.9 11.5 - 14.1 % [facility] Mean Platelet Volume 11.8 7.6 - 12.9 fL [facility] NRBC% auto 0.0 % [facility] NRBC Absolute 0.000 0.000 - 0.000 x10(3)/mc L [facility] Blood 03/06/2022 4:29 AM EDT 03/06/2022 4:49 AM EDT Narrative Resulting Agency Comment Spec In Lab Prakash Mendez MD HEMATOLOGY ORDERABLE S [facility] [place] [address] * (ABNORMAL) Basic Metabolic Panel (non-fasting) (03/06/2022 4:29 AM EDT) Glucose 140 65 - 199 mg/dL [facility] Comment:Diabetes: >=200 mg/d L plus symptoms Blood Urea Nitrogen 31(H) 8 - 18 mg/dL [facility] [...] 98 - 107 mmol/L [facility] Carbon Dioxide 23 22 - 31 mmol/L [facility] Anion Gap 10 5 - 15 mmol/L [facility] Calcium 9.0 8.5 - 10.5 mg/dL [facility] Est Glomerular Filtration Rate 42(L) >=60 mL/min/1. 73 m?? [facility] [...] MD CHEMISTRY ORDERABLE S [facility] [place] [address] * POCT Glucose (03/05/2022 12:18 PM EDT) Glucose, POC 94 65 - 199 mg/dL [facility] Comment: Supplemental ranges: <140 mg/dL before meals <180 mg/dL all other times of the day Blood 03/05/2022 12:1 8 PM EDT 03/05/2022 12:18 PM EDT Shania Will MD POINT OF CARE TEST ORDERABLES Performing Organization Address City/[facility]/ZIP Co de Phone Number [facility] [address] documented in this encounter Visit Diagnoses Diagnosis [...] Unit) documented in this encounter Care Teams Managing Consultant Clinical Professor Relationship Specialty Start Date End Date Ana Her MD [address]ov[address] [place] [address] PCP - General 07/29/13 documented as of this encounter
--- OUTSIDE RECORDS SUMMARY | 2024-05-11 11:30 | XMS_ITS | Continuity of Care Document ---
Author Organization [place] [facility] Address [place] [address] Care Team Providers Care Deck Mechanic Name Role Phone GABINODC Export Sales Manager [facility] Orthopedic Surgeon [phone] [facility] Sleep Medicine [facility] Single Needle Tufting Machine Operator Assessment No assessment recorded. Plan of Treatment Reminders Order Date Submit Date Provider Last Modified By Organization Details Last Modified Time Details Appointments Follow Up 20 2024 01:20P M Ana Wade Not available Not available Not available Lab BMP, serum or plasma 2023 024 [facility] (Registration ), [address] [place] [address] [place], [address], 04/19/2024 11:42:49 vitamin D, 25-hydrox y, total, serum 2023 024 [facility] (Registration ), [address] [place] [address] [place], [address], 04/18/2024 16:09:19 HbA1c (hemoglob in A1c), blood 2023 024 [facility] (Registration ), [address] [place] [address] [place], [address], 04/19/2024 11:39:49 TSH, serum, reflex free T4 2023 024 [facility] (Registration ), [address] [place] [address] [place], [address], 04/19/2024 11:40:25 CBC 2023 024 [facility] (Registration ), [address] [place] [address] [place], [address], 04/18/2024 15:08:25 ferritin, serum or plasma 2023 024 [facility] (Registration ), [address] [place] [address] [place], [address], 04/19/2024 11:41:22 iron + total iron-bind ing capacity (TIBC), serum 2023 024 [facility] (Registration ), [address] [place] [address] [place], [address], 04/19/2024 11:43:17 Referral None recorded. Procedures None [...] humeral fracture 2023- MD [address], [place], [address] , [facility] 4 17:34:10 Hypothyr oidism 69337780 Active 1959 EVIE shaw [facility] 4 10:29:59 Essentia l hyperten jason 74027179 Active 1959 EVIE shaw [facility] 4 10:29:36 Hyperlip idemia 11676576 Active 1959 on statin MD [address], [place], [address] , [facility] 4 20:35:18 Spinal stenosis of lumbar region 26079043 Active 2012 s/p lumbar foramino parish L4 MD [address], [place], [address] , [facility] 4 20:36:41 Sleep apnea 53308607 Active 2012 on CPAP MD [address], [facility] [address] , [facility] 4 20:39:31 Gastroes ophageal reflux disease without esophagi tis 247903211 Completed 195908/12/2023 Removal Reason: resolved with surgical repair of HH MD [address], [place], [address] , [facility] 4 10:41:24 Family history of malignan t neoplasm of digestiv e organ 606990048 Active [address], [place], [address] , [facility] 4 20:37:03 Paresthe samir 58269644 Completed 201412/01/2014 11/28/19 15 - Comments only - Ana Wade MD - check B12 and folate Problem Code: R20.2; Problem Code Type: ICD-10; Not Available [facility] 3 05:53:48 Adult health examinat ion Active [address], [place], [address] , [facility] 4 20:33:34 Pre-surg ruben evaluati [...] Z01.818; Problem Code Type: ICD-10; Not Available [facility] 3 05:53:48 Localize d edema 565271965 Completed 201501/29/2016 12/13/19 16 - Comments only - Ana Wade MD - and some on left as well, will check BMP. 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 Nusrat esparza for removal. Problem Code: L72.3; Problem Code Type: ICD-10; Not Available [facility] 3 05:53:49 Chronic ulcer of foot 470547441 Completed 201601/16/2017 12/18/19 17 - Comments only - Ana Wade MD - Due to injury. This does appear to have some granulat ion tissue and to be healing. She is given a prescrip tion for Keflex to take only if erythema seems to be extendin g. Problem Code: L97.509; Problem Code Type: ICD-10; Not Available [facility] hospital 3 05:53:49 Diarrhea 68354068 Completed 201602/10/2017 02/05/20 17 - Comments only - Ana Wade MD - Persiste nt over several months, we will collect stool for C. 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 6 mm PT1NO E2P2 poistive , HER2 negative MD [address], [place], [address] , [facility] 4 20:38:49 Pain in left lower limb 385788078 Active 2016 EVIE shaw, [facility]. 4 10:32:00 Pain in thoracic spine 588002702 Active 2016 EVIE shaw [facility]. 4 10:32:06 Spasm 78105547 Active 2017 EVIE shaw [facility]. 4 10:33:28 Abdomina l distensi on, gaseous 672399046 Completed 201703/08/2018 Problem Code: R14.0; Problem Code Type: ICD-10; Not Available [facility] hospital 3 05:53:50 Cellulit is of toe 34327656 Completed 201808/12/2018 Problem Code: L03.039; Problem Code Type: ICD-10; Not Available [facility] 3 05:53:51 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 2018 Danica shaw, [facility] 4 14:36:02 Tachycar lea 0792724 Completed 201811/25/2018 Problem Code: R00.0; Problem Code Type: ICD-10; Not Available [facility] 3 05:53:51 Pre-surg ruben evaluati on Completed 201811/25/2018 Problem Code: Z01.818; Problem Code Type: ICD-10; Not Available [facility] 3 05:53:51 Iron deficien cy anemia 69150192 Active 2019 elevated MCV: normal B12 2021, normal folate 2018 IV iron 2023 EGD 01/2022 paraesop hageal hernia (since repaired ) colo 03/2017 normal ANA WADE MD [facility] [address], [place], [address] , [facility] 4 11:44:45 Lumbago with sciatica 196430531 Completed 201903/16/2020 02/24/20 20 - Comments only - 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 - Likely aggravat ed by increase d [...] M54.40; Problem Code Type: ICD-10; Not Available [facility] 3 05:53:52 Right side sciatica 71392699604 9101 Active 2019 EVIE shaw, [facility] 4 10:33:09 Left side sciatica 59440919359 9104 Active [address], [facility] [address] , [facility] 4 17:20:20 Diaphrag matic hernia 72724208 Completed 202108/11/2023 Removal Reason: s/p repair MD [address], [facility] [address] , [facility] 4 20:50:39 History of SARS-CoV -2 90604452141 3559974 Completed 202104/04/2022 03/21/20 22 - Comments only - Ana Wade MD - testing is negative today in the office. Still some fatigue but otherwis e recoveri ng. Did get MAB. Already had covid bivalent booster prior to illness Problem Code: Z86.16; Problem Code Type: ICD-10; Not Available [facility] 3 05:53:53 Diarrhea 69561943 Completed 202104/18/2022 Problem Code: R19.7; Problem Code Type: ICD-10; MD [address], [facility] [address] , [facility] 4 21:03:02 Radhain myla mammogra phy Completed 202208/11/[address], [facility] [address] , [facility] 4 20:36:56 Carpal tunnel syndrome of left wrist 25518923400 9102 Completed 202201/23/2023 Problem Code: G56.02; Problem Code Type: ICD-10; Not Available [facility] 4 05:37:46 Diarrhea 29382700 Active 2022 started colestip ol 01/2023 ANA WADE MD [address], [place], [address] , [facility] 4 21:03:02 Carpal tunnel syndrome of right wrist 42511866947 9108 Completed 201803/19/2020 Problem Code: G56.01; Problem Code Type: ICD-10; Not Available [facility] 3 05:53:55 Pain of left knee joint 62577885258 4107 Completed 202107/30/2022 Problem Code: M25.562; Problem Code Type: ICD-10; Not Available [facility] 3 05:53:55 Hypersom korina 15744933 Completed 201311/27/2014 Problem Code: 780.54; Problem Code Type: ICD-9; Not Available [facility] 3 05:53:56 Screenin g for disorder Completed 201909/11/2021 Problem Code: Z13.9; Problem Code Type: ICD-10; Not Available [facility] 3 05:53:56 Anemia 797528431 Completed 201903/19/2020 Problem Code: D64.9; Problem Code Type: ICD-10; Not Available [facility] 3 05:53:56 Long-ter m current use of anticoag ulant 328157834 Completed 201709/01/2018 Problem Code: Z79.01; Problem Code Type: ICD-10; Not Available [facility] 3 05:53:57 Chronic rhinitis 77562901 Completed 202108/12/2021 Problem Code: J31.0; Problem Code Type: ICD-10; Not Available [facility] 3 05:53:57 Impaired fasting glycemia 959745013 Completed 201401/28/2023 Not Available [facility] 3 05:53:57 Fatigue 62392887 Completed 201903/19/2020 Problem Code: R53.83; Problem Code Type: ICD-10; Not Available [facility] 3 05:53:58 Upper respirat ory tract infectio n caused by Influenz a A 11540315031 9104 Completed 201707/02/2017 Problem Code: J09.x2; Problem Code Type: ICD-10; Not Available [facility] 3 05:53:59 Diarrhea 88778978 Completed 201709/01/2018 ANA WADE MD [facility] [address], [place], [address] [facility] 4 21:03:02 Acute upper respirat ory infectio n 41333072 Completed 202108/26/2021 Problem Code: J06.9; Problem Code Type: ICD-10; Not Available [facility] 3 05:53:59 Pain in right foot 53168711688 9107 Completed 202207/30/2022 Problem Code: M79.671; Problem Code Type: ICD-10; Not Available [facility] 3 05:54:00 Breast composit ion 890266825 Completed 201601/28/2023 Not Available [facility] 3 05:54:00 Changes in skin texture 537705362 Completed 202207/30/2022 Problem Code: R23.4; Problem Code Type: ICD-10; Not Available [facility] 3 05:54:01 Spasm 27559843 Completed 201603/23/2017 Problem Code: R25.2; Problem Code Type: ICD-10; EVIE shaw [facility] 4 10:33:28 Hyperten sive disorder 38817276 Completed 11/28/19 15 - Comments only - Ana Wade MD - [facility] ed, no change in medicati ons Not Available [facility] 3 05:54:03 Arthralg ia of the ankle and/or foot 115480386 Completed 201501/30/2016 Problem Code: M25.571; Problem Code Type: ICD-10; Not Available [facility] 3 05:54:03 Dyspnea 692985921 Completed 201903/19/2020 Problem Code: R06.02; Problem Code Type: ICD-10; Danica Felix [facility] 4 14:39:47 Trigger finger of right hand 97754682996 238211 Completed 201803/19/2020 Problem Code: M65.341; Problem Code Type: ICD-10; Not Available [facility] 3 05:54:06 Cough 42053936 Completed 202108/12/2021 Problem Code: R05.1; Problem Code Type: ICD-10; Not Available [facility] 3 05:54:06 At risk - finding 158635750 Completed 201811/11/2018 Problem Code: Z91.89; Problem Code Type: ICD-10; Not Available [facility] 3 05:54:06 Cough 92295926 Completed 201706/15/2017 Problem Code: R05; Problem Code Type: ICD-10; Not Available [facility] 3 05:54:07 Preopera tive cardiova scular examinat ion Completed 202112/18/2021 Problem Code: Z01.810; Problem Code Type: ICD-10; Not Available [facility] 3 05:54:08 Arterial bruit 52725229 Completed 202109/11/2021 Not Available [facility] 3 05:54:08 Gastroes ophageal reflux disease 911140933 Completed Not Available [facility] 3 05:54:09 Imaging of musculos keletal system abnormal 716336376 Completed 201603/23/2017 Problem Code: R93.7; Problem Code Type: ICD-10; Not Available [facility] 3 05:54:10 Blood glucose outside referenc e range 499821174 Completed 201503/20/2016 Problem Code: R73.09; Problem Code Type: ICD-10; Not Available [facility] 3 05:54:10 Abdomina l aortic aneurysm 096374562 Completed 195912/04/2014 Not Available [facility] 3 05:54:11 Lung field abnormal 316033264 Completed 202109/11/2021 Problem Code: R91.8; Problem Code Type: ICD-10; Not Available [facility] 3 05:54:11 Ingrowin g nail 906213697 Completed 201503/23/2017 Problem Code: L60.0; Problem Code Type: ICD-10; Not Available [facility] 3 05:54:11 Hypokale karyn 23740921 Completed 201504/17/2016 Problem Code: E87.6; Problem Code Type: ICD-10; Not Available [facility] 3 05:54:12 Spasm 43207468 Completed 202201/23/2023 Problem Code: M62.838; Problem Code Type: ICD-10; EVIE shaw, [facility]. 4 10:33:28 Aneurysm of ascendin g aorta 928070072 Active 2023 ANA WADE MD [address], [place], [address] , [facility]. 4 19:24:51 Bicuspid aortic valve 23128316 Active 2023 severe by ECHO 07/2023 ANA WADE MD [address], [place], [address] , [facility]. 4 19:33:10 Osteopen ia 824532661 Active 2023 EVIE shaw, [facility]. 4 10:28:13 Venous stasis 90665865 Active 2023 EVIE shaw [facility]. 4 10:29:14 Chronic kidney disease 915337317 Active 2017 Stage 3bA1v eGFR 42-[address], [place] [address] , [facility] 4 20:49:29 Dyspnea on exertion 13350755 Active 2018 Danica shaw, [facility] 4 14:39:44 Hiatal hernia 83516588 Completed 202108/11/2023 lap repair MD [address], [place] [address] , [facility] 4 20:51:15 Edema of lower extremit y 900977884 Active [address], [place] [address] , [facility] 4 20:55:49 Atrial fibrilla tion 38354245 Active 2016 s/p pulmonoa ry vein isolatio n 05/2018, chronic anticoag ulation with Xarelto MD [address], [place] [address] , [facility] 4 09:14:08 Obesity 600756418 Active [address], [place] [address] , [facility] 4 09:26:22 Cardiac pacemake r in situ 415280997 Active 2023 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 MD [address], [place] [address] , [facility] 4 09:13:49 Swelling of bilatera l lower limbs 837604988 Active [address], [place], [address] , [facility] 14:35:13 Problem Notes None recorded. Procedures Surgical History Date Name Laterality Status Provider Name and Address Organization Details Recorded Time 10/26/19 cardiac pacemaker procedure completed MD [address], [place], [address], [facility] 03/16/2024 16:33:27 10/20/19 transcatheter aortic valve implantation completed MD Young [address], [facility] [address], [facility] 03/16/2024 16:32:53 Imaging Results None recorded. Procedure Notes None recorded. Medical Equipment None Reported. Allergies Allergen ID Allergen Name Allergen Category Reaction Reaction Severity Criticality Documentation Date Start Date Code Code System Note Provider Name and Address Organization Details Recorded Time 41910 amlodipin e medicatio n swelling severe high 11/18/2023 70538 RxNorm Shaneka Herrera MA [facility], [facility] 13:47:28 Medications Name Sig Start Date [...] TWICE A DAY WITH A MEAL/ANGELA D active Not Available Not Available No t Available acetamino phen 325 mg tablet Take [...] 1 tab by mouth daily 06/02 [facility] Not Available Not [...] TAKE ONE TABLET BY MOUTH EVERY DAY active Not Available Not Available No t Available amitripty line 10 mg tablet 1-2 [...] Smoker KRYSTAL SKELTON LPN null, [place] - [facility]. 08/12/2023 07:44:55 Date Of Most Recent HSA [...] And Wanted Help? (For Example, If You Bascom Very Nervous, Lonely, Or Blue; Got Sick [...] Details Recorded Time Pneumococcal conjugate PCV20, polysaccharide AMM240 conjugate, adjuvant, PF 4 completed MD [address], [address] 08/12/2023 11:52:18 COVID-19, mRNA, LNP-S, PF, vanda-sucrose, 30 mcg/0.3 mL 4 completed MD Young [address], [address] 08/12/2023 11:52:18 COVID-19, mRNA, LNP-S, PF, vanda-sucrose, 30 mcg/0.3 mL 4 completed MD [address], [address] 03/04/2024 15:04:49 Tdap 1 completed Not Available [facility] 03/13/2023 06:18:37 Tdap 1 completed Not Available [facility] 03/13/2023 06:18:37 zoster live 5 completed Not Available [facility] 03/13/2023 06:18:37 Influenza, high-dose, trivalent, PF 8 completed Not Available [facility] 03/13/2023 06:18:38 Influenza, split virus, trivalent, preservative 6 completed Not Available [facility] 03/13/2023 06:18:38 Pneumococcal Conjugate, unspecified formulation 5 completed Not Available [facility] 03/13/2023 06:18:38 Influenza, split virus, quadrivalent, preservative 7 completed Not Available [facility] 03/13/2023 06:18:38 Influenza, high-dose, quadrivalent, PF 2 completed Not Available [facility] 03/13/2023 06:18:38 Influenza, high-dose, quadrivalent, PF 1 completed Not Available [facility] 03/13/2023 06:18:38 Influenza, high-dose, quadrivalent, PF 0 completed Not Available [facility] 03/13/2023 06:18:38 COVID-19, mRNA, LNP-S, PF, 100 mcg/0.5mL dose or 50 mcg/0.25mL dose 1 completed Not Available Critical access hospital 03/13/2023 06:18:38 COVID-19, mRNA, LNP-S, PF, 100 mcg/0.5mL dose or 50 mcg/0.25mL dose 1 completed Not Available [facility] 03/13/2023 06:18:39 COVID-19, mRNA, LNP-S, PF, 100 mcg/0.5mL dose or 50 mcg/0.25mL dose 1 completed Not Available [facility] 03/13/2023 06:18:39 COVID-19, mRNA, LNP-S, bivalent, PF, 30 mcg/0.3 mL dose 2 completed Not Available [facility] 03/13/2023 06:18:39 pneumococcal polysaccharide PPV23 1 completed Not Available [facility] 03/13/2023 06:18:39 influenza, unspecified formulation 6 completed Not Available [facility] 03/13/2023 06:18:39 influenza, unspecified formulation 4 completed Not Available [facility] 03/13/2023 06:18:39 Influenza, high-dose, quadrivalent, PF 3 completed Not Available Critical access hospital 05/15/2023 05:33:16 Past Encounters Encounter ID Performer Location Encounter Start Date Encounter Closed Date Diagnosis/Indication Diagnosis SNOMED-CT Code Diagnosis ICD10 Code Diagnosis Note [id number] Samantha Razo RN [address] [place] [address] 04/18/2024 10:14:04 04/18/2024 10:46:21 Osteoporotic fracture 44539580 M80.00XD Hypothyroidism 99857694 E03.9 Iron defic iency anemia 09475235 D50.9 Chronic ki dney disease 286808130 N18.9 Prediabetes 738174652 R7 3.03 Health Concerns Section Related Observation LastModified by Organization Detai ls LastModified Time None Recorded Concern Status LastModified by Organization Details LastModified Time None Recorded Payers Encounter Date Sequence Insurance Name Policy Number Policy Palacio Covered Member ID Palacio Member ID Guarantor Name 04/18/2024 1 [place] [employer] Digna Olson [id number] Digna Olson 04/18/2024 2 [place] [facility] [id number] Digna Olson [id number] Digna Olson OBGyn Episode No OBEpisode recorded.
--- OUTSIDE RECORDS SUMMARY | 2024-05-11 11:30 | XMS_ITS | Encounter Summary ---
Author Organization [facility] [place] [address] Care Team Providers Care Press Maintainer Name Role Phone Ana Her MD Primary Care Provider [phone] Encounter Details Date Type Department Care Team (Late st Contact Info) Description 03/10/2022 1:35 AM EST Ancillary Procedure Radiology Library at [facility] [place] [address] Ana Her MD [address] [place] [address] [facility] [address] [place], [place] [id number] Social History Tobacco Use Types Packs/Day Years [...] CT Chest (03/10/2022 1:31 AM EST) Narrative [facility] - 03/10/2022 1:31 AM EST This exam is auto-finalizing. It's purpose is for storage only. Ana Her MD IM FILM LIBRARY ORD ERABLES [place], [place] documented in this encounter Visit Diagnoses Not on filedocumented in this encounter Care Teams Press Maintainer Relationship Specialty Start Date End Date Ana Her MD [facility] JAY HOGAN [facility] [address] [place] [address] PCP - General 07/29/13 documented as of this encounter
--- OUTSIDE RECORDS SUMMARY | 2024-05-11 11:30 | XMS_ITS | Encounter Summary ---
Author Organization [facility] [address] Care Team Providers Care Excelsior Machine Feeder Name Role Phone Ana Her MD Primary Care Provider [phone] Encounter Details Date Type Department Care Team (Latest Contact Info) Description 04/03/2022 12:00 PM EST TH Visit (TeleHealth) [place] [address] Laura Will MD [facility] [place] [address] Status post repair of paraesophageal diaphragmatic hernia [...] status documented in this encounter Care Teams Excelsior Machine Feeder Relationship Specialty Start Date End Date Ana Her MD [facility] JAY [address] [place] [address] PCP - General 07/29/13 documented as of this encounter
--- OUTSIDE RECORDS SUMMARY | 2024-05-11 11:30 | XMS_ITS | Encounter Summary ---
[place] [address] Care Team Providers Care Metal Technician Name Role Phone Ana Her MD Primary Care Provider [phone] Encounter Details Date Type Department Care Team (Late st Contact Info) Description 02/03/2023 Telephone Hematology [place] [address] Maryam Barrett Social History Tobacco Use Types [...] filedocumented in this encounter Care Teams Metal Technician Relationship Specialty Start Date End Date Ana Her MD Geovany [address] [place] [address] PCP - General 07/29/13 documented as of this encounter
--- OUTSIDE RECORDS SUMMARY | 2024-05-11 11:30 | XMS_ITS | Data Portability ---
Author Organization [place] - [facility], [facility] [place] [address] Care Team Providers Care Sole Assessor Name Role Phone GABINODC Canvas Baster [facility] Orthopedic Surgeon [facility] Sleep Medicine [facility] Fingerprint Expert Assessment Encounter Date Assessment Date Assessment LastModified by Organization Details LastModified Time 10/14/2023 10/14/2023 Patient presents for pre-op evaluation. The patient is a suitable candidate for the planned procedure. Their chronic medical problems are optimized Further preoperative evaluation is not needed. BMP and CBC are drawn today. The total time devoted to today's encounter, including both the iuxx-ac-szbu time with the patient and/or family/caregive r and dvv-nwih-li-fac e time I personally spent is 30 minutes. Not available 10/14/2023 11:57:30 12/02/2023 12/02/2023 The total time devoted to today's encounter, including both the simr-yi-jaem time with the patient and/or family/caregive r and fxi-polr-mi-fac e time I personally spent is 35 minutes. Not available 12/02/2023 14:47:23 03/04/2024 03/04/2024 The total time devoted to today's encounter, including both the hwgw-oq-sdbz time with the patient and/or family/caregive r and haa-cvyp-zj-fac e time I personally spent is 44 minutes. Not available 03/04/2024 17:47:18 Plan of Treatment Reminders Order Date Submit Date Provider Last Modified By Organization Details Last Modified Time Details Appointments Follow Up 2024 01:20P Allan Her Not available Not available Not available Lab CBC 2023 024 [facility] (Registration ), [address] [place] [address] [place], [address], 10/14/2023 15:11:07 BMP, serum or plasma 2023 024 [facility] (Registration ), [address] [place] [address] [place], [address], 10/14/2023 17:41:37 BMP, serum or plasma 2023 024 [facility] (Registration ), [address] [place] [address] [place], [address], 12/30/2023 08:56:49 magnesium , serum or plasma 2023 024 [facility] (Registration ), [address] [place] [address] [place], [address], 12/09/2023 07:38:05 BNP (B-type natriuret ic peptide), serum or plasma 2023 024 [facility] (Registration ), [address] [place] [address] [place], [address], 12/03/2023 20:48:47 CBC 2023 024 [facility] (Registration ), [address] [place] [address] [place], [address], 12/02/2023 16:35:23 BMP, serum or plasma 2023 024 [facility] (Registration ), [address] [place] [address] [place], [address], 04/19/2024 11:42:49 vitamin D, 25-hydrox y, total, serum 2023 024 [facility] (Registration ), [address] [place] [address] [place], [address], 04/18/2024 16:09:19 HbA1c (hemoglob in A1c), blood 2023 [facility] (Registration ), [address] [place] [address] [place], [address], 04/19/2024 11:39:49 TSH, serum, reflex free T4 2023 [facility] (Registration ), [address] [place] [address] [place], [address], 04/19/2024 11:40:25 CBC 2023 [facility] (Registration ), [address] [place] [address] [place], [address], 04/18/2024 15:08:25 ferritin, serum or plasma 2023 [facility] (Registration ), [address] [place] [address] [place], [address], 04/19/2024 11:41:22 iron + total iron-bind ing capacity (TIBC), serum 2023 [facility] (Registration ), [address] [place] [address] [place], [address], 04/19/2024 11:43:17 BMP, serum or plasma 2023 024 [facility] (Registration ), [address] [place] [address] [place], [address], 04/19/2024 11:42:49 vitamin D, 25-hydrox y, total, serum 2023 [facility] (Registration ), [address] [place] [address] [place], [address], 04/18/2024 16:09:19 HbA1c (hemoglob in A1c), blood 2023 024 [facility] (Registration ), [address] [place] [address] [place], [address], 04/19/2024 11:39:49 TSH, serum, reflex free T4 2023 024 [facility] (Registration ), [address] [place] [address] [place], [address], 04/19/2024 11:40:25 CBC 2023 024 [facility] (Registration ), [address] [place] [address] [place], [address], 04/18/2024 15:08:25 ferritin, serum or plasma 2023 024 [facility] (Registration ), [address] [place] [address] [place], [address], 04/19/2024 11:41:22 iron + total iron-bind ing capacity (TIBC), serum 2023 024 [facility] (Registration ), [address] [place] [address] [place], [address], 04/19/2024 11:43:17 Referral None recorded. Procedures None recorded. Surgeries None recorded. Imaging electroca rdiogram 2023 024 [facility], [address], [place], [address], 10/14/2023 11:56:21 Medication Orders tramadol 50 mg tablet 2023 024 [facility], [address] [facility], [place], [address], 02/19/2024 13:12:28 furosemid e 80 mg tablet 2023 024 [facility], [address] [place] [address], [address], [place], [address], 03/04/2024 14:49:38 spironola ctone 25 mg tablet [address], [address] [place] [address], [facility] [address], [address], 12/02/2023 12:50:28 lisinopri l 5 mg tablet 2023 024 [facility], [address] [place] [address], [facility], [place], [address], 02/19/2024 13:19:32 carvedilo l 25 mg tablet 2023 [facility], [address] [place] [address], [address], [place], [address], 04/29/2024 12:42:49 hydromorp ricky 2 mg tablet 2023 024 [facility], [address] [place], [address], 03/04/2024 15:12:30 levothyro xine 75 mcg tablet [address] [facility], [address] [place], [address], 03/04/2024 16:32:19 Patient TargetsNo targets recorded. Patient InstructionsNo instructions recorded. 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 None Reported. Results Created Date Observation Date Name Description Value Unit Range Abnormal Flag Note LastModifiedBy Organization Detail LastModifiedTime 10/14/19 24 10/14/2023 COMPL ETE BLOOD COUNT NO DIFF WBC 8.22 10_3/ uL 4.4-10 .8 normal Not Available [facility] [address] [facility] [place], [address] 10/14/2023 15:11:07 10/14/19 24 10/14/2023 COMPL ETE BLOOD COUNT NO DIFF RBC 3.22 10_6/ uL 3.93-5 .22 low Not Available [address] [place], [address] 10/14/2023 15:11:07 10/14/19 24 10/14/2023 COMPL ETE BLOOD COUNT NO DIFF HGB 10.9 g/dL 11.2-1 5.7 low Not Available [address] [place], [address] 10/14/2023 15:11:07 10/14/19 24 10/14/2023 COMPL ETE BLOOD COUNT NO DIFF HCT 32.5 % 36.0-4 6.0 low Not Available [address] [place], [address] 10/14/2023 15:11:07 10/14/19 24 10/14/2023 COMPL ETE BLOOD COUNT NO DIFF MCV 101 fL 80-95 high Not Available Ethel [address] [place], [address] 10/14/2023 15:11:07 10/14/19 24 10/14/2023 COMPL ETE BLOOD COUNT NO DIFF MCH 33.9 pg 27.0-3 3.0 high Not Available [address] [place], [address] 10/14/2023 15:11:07 10/14/19 24 10/14/2023 COMPL ETE BLOOD COUNT NO DIFF MCHC 33.5 % 32.0-3 6.0 normal Not Available [address] [place], [address] 10/14/2023 15:11:07 10/14/19 24 10/14/2023 COMPL ETE BLOOD COUNT NO DIFF RDW 13.9 % 11.7-1 4.6 normal Not Available [address] [place], [address] 10/14/2023 15:11:07 10/14/19 24 10/14/2023 COMPL ETE BLOOD COUNT NO DIFF platelet count 133 10_3/ uL 130-40 0 normal Not Available [address] [place], [address] 10/14/2023 15:11:07 10/14/19 24 10/14/2023 COMPL ETE BLOOD COUNT NO DIFF MPV 12.8 fL 8.0-11 .0 high Not Available [address] [place], [address] 10/14/2023 15:11:07 10/14/19 24 10/14/2023 BASIC METAB OLIC PANEL calcium 9.3 mg/dL 8.5-10 .1 normal Not Available [facility] (Registration ) [address] [place] [address] [place], [address], 10/14/2023 15:19:07 10/14/19 24 10/14/2023 BASIC METAB OLIC PANEL glucose 105 mg/dL 74-106 normal Not Available [facility] (Registration ) [address] [place] [address] [place], [address], 10/14/2023 15:19:07 10/14/19 24 10/14/2023 BASIC METAB OLIC PANEL BUN 49 mg/dL 7-18 high Not Available [facility] (Registration ) [address] [place] [address] [place], [address], 10/14/2023 15:19:07 10/14/19 24 10/14/2023 BASIC METAB OLIC PANEL creatinine 1.9 mg/dL 0.55-1 .02 high Not Available [facility] (Registration ) [address] [place] [address] [place], [address], 10/14/2023 15:19:07 10/14/19 24 10/14/2023 BASIC METAB [...] young er-ag ed adult s. Not Available [facility] (Registration ) [address] [place] [address] [place], [address], 10/14/2023 15:19:07 10/14/19 24 10/14/2023 BASIC METAB OLIC PANEL sodium 137 mmol/ L 136-14 5 normal Not Available [facility] (Registration ) [address] [place] [address] [place], [address], 10/14/2023 15:19:07 10/14/19 24 10/14/2023 BASIC METAB OLIC PANEL potassium 5.1 mmol/ L 3.5-5. 1 normal Not Available [facility] (Registration ) [address] [place] [address] [place], [address], 10/14/2023 15:19:07 10/14/19 24 10/14/2023 BASIC METAB OLIC PANEL chloride 104 mmol/ L 98-107 normal Not Available [facility] (Registration ) [address] [place] [address] [place], [address], 10/14/2023 15:19:07 10/14/19 24 10/14/2023 BASIC METAB OLIC PANEL CO2 20.3 mmol/ L 21.0-3 2.0 low Not Available [facility] (Registration ) [address] [place] [address] [place], [address], 10/14/2023 15:19:07 10/14/19 24 10/14/2023 BASIC METAB OLIC PANEL anion gap 12.7 mmol/ L 3-11 high Not Available [facility] (Registration ) [address] [place] [address] [place], [address], 10/14/2023 15:19:07 11/18/19 24 11/18/2023 LACTA TE lactate 1.0 mmol/ L 0.6-1. 4 normal Not Available [address] [place], [address] 11/18/2023 15:53:33 11/18/19 24 11/18/2023 COMPL ETE BLOOD COUNT W/DIF F WBC 8.69 10_3/ uL 4.4-10 .8 normal Not Available [address] [place], [address] 11/18/2023 15:57:13 11/18/19 24 11/18/2023 COMPL ETE BLOOD COUNT W/DIF F RBC 3.16 10_6/ uL 3.93-5 .22 low Not Available [address] [place], [address] 11/18/2023 15:57:13 11/18/19 24 11/18/2023 COMPL ETE BLOOD COUNT W/DIF F HGB 10.7 g/dL 11.2-1 5.7 low Not Available [address] [place], [address] 11/18/2023 15:57:13 11/18/19 24 11/18/2023 COMPL ETE BLOOD COUNT W/DIF F HCT 33.0 % 36.0-4 6.0 low Not Available [address] [place], [address] 11/18/2023 15:57:13 11/18/19 24 11/18/2023 COMPL ETE BLOOD COUNT W/DIF F MCV 104 fL 80-95 high Not Available [address] [place], [address] 11/18/2023 15:57:13 11/18/19 24 11/18/2023 COMPL ETE BLOOD COUNT W/DIF F MCH 33.9 pg 27.0-3 3.0 high Not Available [address] [place], [address] 11/18/2023 15:57:13 11/18/19 24 11/18/2023 COMPL ETE BLOOD COUNT W/DIF F MCHC 32.4 % 32.0-3 6.0 normal Not Available [address] [place], [address] 11/18/2023 15:57:13 11/18/19 24 11/18/2023 COMPL ETE BLOOD COUNT W/DIF F RDW 14.6 % 11.7-1 4.6 normal Not Available [address] [place], [address] 11/18/2023 15:57:13 11/18/19 24 11/18/2023 COMPL ETE BLOOD COUNT W/DIF F platelet count 134 10_3/ uL 130-40 0 normal Not Available [address] [place], [address] 11/18/2023 15:57:13 11/18/19 24 11/18/2023 COMPL ETE BLOOD COUNT W/DIF F MPV 11.2 fL 8.0-11 .0 high Not Available [address] [place], [address] 11/18/2023 15:57:13 11/18/19 24 11/18/2023 COMPL ETE BLOOD COUNT W/DIF F neutrophils % 74.8 % Not Available [address] [place], [address] 11/18/2023 15:57:13 11/18/19 24 11/18/2023 COMPL ETE BLOOD COUNT W/DIF F lymphocytes % 13.2 % Not Available [address] [place], [address] 11/18/2023 15:57:13 11/18/19 24 11/18/2023 COMPL ETE BLOOD COUNT W/DIF F monocytes % 5.9 % Not Available [address] [place], [address] 11/18/2023 15:57:13 11/18/19 24 11/18/2023 COMPL ETE BLOOD COUNT W/DIF F eosinophils % 5.2 % Not Available [address] [place], [address] 11/18/2023 15:57:13 11/18/19 24 11/18/2023 COMPL ETE BLOOD COUNT W/DIF F basophils % 0.6 % Not Available [address] [place], [address] 11/18/2023 15:57:13 11/18/19 24 11/18/2023 COMPL ETE BLOOD COUNT W/DIF F immature grans % 0.3 % Not Available Ariela avitia [address] [place], [address] 11/18/2023 15:57:13 11/18/19 24 11/18/2023 COMPL ETE BLOOD COUNT W/DIF F nucleated RBC 0.0 % 0.0-0. 3 normal Not Available [address] [place], [address] 11/18/2023 15:57:13 11/18/19 24 11/18/2023 COMPL ETE BLOOD COUNT W/DIF F absolute neutrophil count 6.50 10_3/ uL 1.2-6. 7 normal Not Available [address] [place], [address] 11/18/2023 15:57:13 11/18/19 24 11/18/2023 COMPL ETE BLOOD COUNT W/DIF F absolute lymphocyte count 1.15 10_3/ uL 1.2-3. 4 low Not Available [address] [place], [address] 11/18/2023 15:57:13 11/18/19 24 11/18/2023 COMPL ETE BLOOD COUNT W/DIF F absolute monocyte count 0.51 10_3/ uL 0.1-0. 8 normal Not Available [address] [place], [address] 11/18/2023 15:57:13 11/18/19 24 11/18/2023 COMPL ETE BLOOD COUNT W/DIF F absolute eosinophil count 0.45 10_3/ uL 0.0-0. 7 normal Not Available [address] [place], [address] 11/18/2023 15:57:13 11/18/19 24 11/18/2023 COMPL ETE BLOOD COUNT W/DIF F absolute basophil count 0.05 10_3/ uL 0.0-0. 2 normal Not Available [address] [place], [address] 11/18/2023 15:57:13 11/18/19 24 11/18/2023 PROTH ROMBI N TIME prothrombin time 10.5 sec 9.1-11 .1 normal Not Available [address] [place], [address] 11/18/2023 16:14:17 11/18/19 24 11/18/2023 PROTH ROMBI N TIME INR 1.0 0.9-1. 1 normal Recom noel d INR thera peuti c range s for orall y admin ister ed drugs are as follo ws: -Jair dard Inten sity 2.0 to 3.0 -High er Inten sity 3.0 to 4.5 Not Available [address] [place], [address] 11/18/2023 16:14:17 11/18/19 24 11/18/2023 PTT ACTIV ATED PTT activated 19.6 sec 23.6-3 2.8 low Hepar in Thera peuti c Range for PTT = 52-84 secon ds New Hepar in Thera peuti c Range 06/09 Not Available [address] [place], [address] 11/18/2023 16:14:18 11/18/19 24 11/18/2023 COMPR EHENS NADEEM METAB OLIC PANEL calcium 9.0 mg/dL 8.5-10 .1 normal Not Available [address] [place], [address] 11/18/2023 16:19:21 11/18/19 24 11/18/2023 COMPR EHENS NADEEM METAB OLIC PANEL glucose 100 mg/dL 74-106 normal Not Available Ethel green [address] [place], [address] 11/18/2023 16:19:21 11/18/19 24 11/18/2023 COMPR EHENS NADEEM METAB OLIC PANEL BUN 15 mg/dL 7-18 normal Not Available Ethel green [address] [place], [address] 11/18/2023 16:19:21 11/18/19 24 11/18/2023 COMPR EHENS NADEEM METAB OLIC PANEL creatinine 1.0 mg/dL 0.55-1 .02 normal Not Available [address] [place], [address] 11/18/2023 16:19:21 11/18/19 24 11/18/2023 COMPR EHENS [...] young er-ag ed adult s. Not Available [address] [place], [address] 11/18/2023 16:19:21 11/18/19 24 11/18/2023 COMPR EHENS NADEEM METAB OLIC PANEL total protein 6.8 g/dL 6.4-8. 2 normal Not Available [address] [place], [address] 11/18/2023 16:19:21 11/18/19 24 11/18/2023 COMPR EHENS NADEEM METAB OLIC PANEL albumin 3.8 g/dL 3.4-5. 0 normal Not Available [address] [place], [address] 11/18/2023 16:19:21 11/18/19 24 11/18/2023 COMPR EHENS NADEEM METAB OLIC PANEL bilirubin, total 0.92 mg/dL 0.2-1. 0 normal Not Available [address] [place], [address] 11/18/2023 16:19:21 11/18/19 24 11/18/2023 COMPR EHENS NADEEM METAB OLIC PANEL alk phos 68 U/L 46-116 normal Not Available [address] [place], [address] 11/18/2023 16:19:21 11/18/19 24 11/18/2023 COMPR EHENS NADEEM METAB OLIC PANEL sodium 144 mmol/ L 136-14 5 normal Not Available [address] [place], [address] 11/18/2023 16:19:21 11/18/19 24 11/18/2023 COMPR EHENS NADEEM METAB OLIC PANEL potassium 3.6 mmol/ L 3.5-5. 1 normal Not Available [address] [place], [address] 11/18/2023 16:19:21 11/18/19 24 11/18/2023 COMPR EHENS NADEEM METAB OLIC PANEL chloride 106 mmol/ L 98-107 normal Not Available [address] [place], [address] 11/18/2023 16:19:21 11/18/19 24 11/18/2023 COMPR EHENS NADEEM METAB OLIC PANEL CO2 29.6 mmol/ L 21.0-3 2.0 normal Not Available [address] [place], [address] 11/18/2023 16:19:21 11/18/19 24 11/18/2023 COMPR EHENS NADEEM METAB OLIC PANEL anion gap 8.4 mmol/ L 3-11 normal Not Available [address] [place], [address] 11/18/2023 16:19:21 11/18/19 24 11/18/2023 COMPR EHENS NADEEM METAB OLIC PANEL AST 15 U/L 15-37 normal Not Available Ethel green [address] [place], [address] 11/18/2023 16:19:21 11/18/19 24 11/18/2023 COMPR EHENS NADEEM METAB OLIC PANEL ALT 16 U/L 14-59 normal Not Available Ethel green [address] [place], [address] 11/18/2023 16:19:21 11/18/19 24 11/18/2023 MAGNE SIUM magnesium 1.9 mg/dL 1.8-2. 4 normal Not Available [address] [place], [address] 11/18/2023 16:19:21 11/18/19 24 11/18/2023 LIPAS E lipase 24 U/L 16-77 normal Not Available Ethel green [address] [place], [address] 11/18/2023 16:19:22 11/18/19 24 11/18/2023 TROPO LUCIA I troponin I < 50 NG/L < or =60 Not Available [address] [place], [address] 11/18/2023 16:19:22 11/18/19 24 11/18/2023 NT-IA OBNP [...] false negat nadeem resul ts. Not Available [address] [place], [address] 11/18/2023 16:19:23 11/18/19 24 11/18/2023 TSH (W/RE F FT4) TSH (w/ref FT4) 0.49 uIU/m L 0.36-3 .74 normal Not Available [address] [place], [address] 11/18/2023 16:22:20 11/18/19 24 11/18/2023 URINA LYSIS color Yellow yellow Not Available Ethel green [address], [address] 11/18/2023 19:26:06 07/17/11/18/2023 URINA LYSIS clarity Clear clear Not Available Ethel green [address] [place], [address] 11/18/2023 19:26:06 11/18/19 24 11/18/2023 URINA LYSIS specific gravity 1.015 1.005- 1.025 normal Not Available [address] [place], [address] 11/18/2023 19:26:06 11/18/19 24 11/18/2023 URINA LYSIS pH 6.5 5-8 normal Not Available Ethel green [address] [place], [address] 11/18/2023 19:26:06 11/18/19 24 11/18/2023 URINA LYSIS leukocyte esterase Small negati ve abnormal Not Available [address] [place], [address] 11/18/2023 19:26:06 11/18/19 24 11/18/2023 URINA LYSIS nitrite Negati ve negati ve Not Available [address] [place], [address] 11/18/2023 19:26:06 11/18/19 24 11/18/2023 URINA LYSIS protein Negati ve mg/dL neg-tr patrick Not Available [address] [place], [address] 11/18/2023 19:26:06 11/18/19 24 11/18/2023 URINA LYSIS glucose Negati ve mg/dL negati ve Not Available [address] [place], [address] 11/18/2023 19:26:06 11/18/19 24 11/18/2023 URINA LYSIS ketones Negati ve mg/dL negati ve Not Available [address] [place], [address] 11/18/2023 19:26:06 11/18/19 24 11/18/2023 URINA LYSIS urobilinogen 0.2 mg/dL up to 0.2 Not Available [address] [place], [address] 11/18/2023 19:26:06 11/18/19 24 11/18/2023 URINA LYSIS bilirubin Negati ve negati ve Not Available [address] [place], [address] 11/18/2023 19:26:06 11/18/19 24 11/18/2023 URINA LYSIS blood Negati ve negati ve Not Available [address] [place], [address] 11/18/2023 19:26:06 11/18/19 24 11/18/2023 URINA LYSIS color Yellow yellow Not Available Ethel green [address] [place], [address] 11/18/2023 20:30:25 11/18/19 24 11/18/2023 URINA LYSIS clarity Clear clear Not Available Ethel green [address] [place], [address] 11/18/2023 20:30:25 11/18/19 24 11/18/2023 URINA LYSIS specific gravity 1.015 1.005- 1.025 normal Not Available [address] [place], [address] 11/18/2023 20:30:25 11/18/19 24 11/18/2023 URINA LYSIS pH 6.5 5-8 normal Not Available Ethel green [address] [place], [address] 11/18/2023 20:30:25 11/18/19 24 11/18/2023 URINA LYSIS leukocyte esterase Small negati ve abnormal Not Available [address] [place], [address] 11/18/2023 20:30:25 11/18/19 24 11/18/2023 URINA LYSIS nitrite Negati ve negati ve Not Available [address] [place], [address] 11/18/2023 20:30:25 11/18/19 24 11/18/2023 URINA LYSIS protein Negati ve mg/dL neg-tr patrick Not Available [address] [place], [address] 11/18/2023 20:30:25 11/18/19 24 11/18/2023 URINA LYSIS glucose Negati ve mg/dL negati ve Not Available [address] [place], [address] 11/18/2023 20:30:25 11/18/19 24 11/18/2023 URINA LYSIS ketones Negati ve mg/dL negati ve Not Available [address] [place], [address] 11/18/2023 20:30:25 11/18/19 24 11/18/2023 URINA LYSIS urobilinogen 0.2 mg/dL up to 0.2 Not Available [address] [place], [address] 11/18/2023 20:30:25 11/18/19 24 11/18/2023 URINA LYSIS bilirubin Negati ve negati ve Not Available [address] [place], [address] 11/18/2023 20:30:25 11/18/19 24 11/18/2023 URINA LYSIS blood Negati ve negati ve Not Available [address] [place], [address] 11/18/2023 20:30:25 11/18/19 24 11/18/2023 MICRO SCOPI C FINDI NGS WBC 3-5 hpf 0-5 Not Available Ethel green [address] [place], [address] 11/18/2023 20:30:25 11/18/19 24 11/18/2023 MICRO SCOPI C FINDI NGS RBC Negati ve hpf 0-2 Not Available Joel smith [address] [place], [address] 11/18/2023 20:30:25 11/18/19 24 11/18/2023 MICRO SCOPI C FINDI NGS epithelial cells Many hpf negati ve Not Available [address] [place], [address] 11/18/2023 20:30:25 11/18/19 24 11/18/2023 MICRO SCOPI C FINDI NGS bacteria Few hpf negati ve Not Available [address] [place], [address] 11/18/2023 20:30:25 11/18/19 24 11/18/2023 MICRO SCOPI C FINDI NGS crystals Negati ve hpf negati ve Not Available [address] [place], [address] 11/18/2023 20:30:25 11/18/19 24 11/18/2023 MICRO SCOPI C FINDI NGS mucus Trace negati ve Not Available [address] [place], [address] 11/18/2023 20:30:25 11/18/19 24 11/18/2023 MICRO SCOPI C FINDI NGS C S indicated? No Not Available [address] [place], [address] 11/18/2023 20:30:25 11/18/19 24 11/18/2023 TROPO ULCIA I troponin I < 50 NG/L < or =60 Not Available [address] [place], [address] 11/18/2023 22:25:47 11/18/19 24 11/18/2023 VENOU S BLOOD GAS pH (venous) 7.45 7.31-7 .41 high Not Available [address] [place], [address] 11/18/2023 23:12:54 11/18/19 24 11/18/2023 VENOU S BLOOD GAS pCO2 (venous) 44 mmHg 41-51 normal Not Available [address] [place], [address] 11/18/2023 23:12:54 11/18/19 24 11/18/2023 VENOU S BLOOD GAS pO2 (venous) 37 mmHg Not Available [address] [place], [address] 11/18/2023 23:12:54 11/18/19 24 11/18/2023 VENOU S BLOOD GAS TCO2 (venous) 28 mmol/ L 24-29 normal Not Available [address] [place], [address] 11/18/2023 23:12:54 11/18/19 24 11/18/2023 VENOU S BLOOD GAS HCO3 (venous) 30 mmol/ L 23-28 high Not Available [address] [place], [address] 11/18/2023 23:12:54 11/18/19 24 11/18/2023 VENOU S BLOOD GAS BE (venous) 6 mmol/ L -2-3 high Not Available [address] [place], [address] 11/18/2023 23:12:54 11/18/19 24 11/18/2023 VENOU S BLOOD GAS O2 sat (venous) 74 % Not Available Ariela avitia [address] [place], [address] 11/18/2023 23:12:54 11/19/19 24 11/19/2023 COMPL ETE BLOOD COUNT W/DIF F WBC 7.07 10_3/ uL 4.4-10 .8 normal Not Available [address] [place], [address] 11/19/2023 07:03:22 11/19/19 24 11/19/2023 COMPL ETE BLOOD COUNT W/DIF F RBC 2.93 10_6/ uL 3.93-5 .22 low Not Available [address] [place], [address] 11/19/2023 07:03:22 11/19/19 24 11/19/2023 COMPL ETE BLOOD COUNT W/DIF F HGB 9.8 g/dL 11.2-1 5.7 low Not Available [address] [place], [address] 11/19/2023 07:03:22 11/19/19 24 11/19/2023 COMPL ETE BLOOD COUNT W/DIF F HCT 30.5 % 36.0-4 6.0 low Not Available [address] [place], [address] 11/19/2023 07:03:22 11/19/19 24 11/19/2023 COMPL ETE BLOOD COUNT W/DIF F MCV 104 fL 80-95 high Not Available Ethel green [address] [place], [address] 11/19/2023 07:03:22 11/19/19 24 11/19/2023 COMPL ETE BLOOD COUNT W/DIF F MCH 33.4 pg 27.0-3 3.0 high Not Available [address] [place], [address] 11/19/2023 07:03:22 11/19/19 24 11/19/2023 COMPL ETE BLOOD COUNT W/DIF F MCHC 32.1 % 32.0-3 6.0 normal Not Available [address] [place], [address] 11/19/2023 07:03:22 11/19/19 24 11/19/2023 COMPL ETE BLOOD COUNT W/DIF F RDW 14.4 % 11.7-1 4.6 normal Not Available [address] [place], [address] 11/19/2023 07:03:22 11/19/19 24 11/19/2023 COMPL ETE BLOOD COUNT W/DIF F platelet count 112 10_3/ uL 130-40 0 low Not Available [address] [place], [address] 11/19/2023 07:03:22 11/19/19 24 11/19/2023 COMPL ETE BLOOD COUNT W/DIF F MPV 10.8 fL 8.0-11 .0 normal Not Available [address] [place], [address] 11/19/2023 07:03:22 11/19/19 24 11/19/2023 COMPL ETE BLOOD COUNT W/DIF F neutrophils % 74.3 % Not Available [address] [place], [address] 11/19/2023 07:03:22 11/19/19 24 11/19/2023 COMPL ETE BLOOD COUNT W/DIF F lymphocytes % 14.1 % Not Available [address] [place], [address] 11/19/2023 07:03:22 11/19/19 24 11/19/2023 COMPL ETE BLOOD COUNT W/DIF F monocytes % 6.5 % Not Available [address] [place], [address] 11/19/2023 07:03:22 11/19/19 24 11/19/2023 COMPL ETE BLOOD COUNT W/DIF F eosinophils % 4.4 % Not Available [address] [place], [address] 11/19/2023 07:03:22 11/19/19 24 11/19/2023 COMPL ETE BLOOD COUNT W/DIF F basophils % 0.4 % Not Available [address] [place], [address] 11/19/2023 07:03:22 11/19/19 24 11/19/2023 COMPL ETE BLOOD COUNT W/DIF F immature grans % 0.3 % Not Available [address] [place], [address] 11/19/2023 07:03:22 11/19/19 24 11/19/2023 COMPL ETE BLOOD COUNT W/DIF F nucleated RBC 0.0 % 0.0-0. 3 normal Not Available [address] [place], [address] 11/19/2023 07:03:22 11/19/19 24 11/19/2023 COMPL ETE BLOOD COUNT W/DIF F absolute neutrophil count 5.25 10_3/ uL 1.2-6. 7 normal Not Available [address] [place], [address] 11/19/2023 07:03:22 11/19/19 24 11/19/2023 COMPL ETE BLOOD COUNT W/DIF F absolute lymphocyte count 1.00 10_3/ uL 1.2-3. 4 low Not Available [address] [place], [address] 11/19/2023 07:03:22 11/19/19 24 11/19/2023 COMPL ETE BLOOD COUNT W/DIF F absolute monocyte count 0.46 10_3/ uL 0.1-0. 8 normal Not Available [address] [place], [address] 11/19/2023 07:03:22 11/19/19 24 11/19/2023 COMPL ETE BLOOD COUNT W/DIF F absolute eosinophil count 0.31 10_3/ uL 0.0-0. 7 normal Not Available [address] [place], [address] 11/19/2023 07:03:22 11/19/19 24 11/19/2023 COMPL ETE BLOOD COUNT W/DIF F absolute basophil count 0.03 10_3/ uL 0.0-0. 2 normal Not Available [address] [place], [address] 11/19/2023 07:03:22 11/19/19 24 11/19/2023 IRON AND IBCT iron 45 ug/dL 50-170 low Not Available Ethel green [address] [place], [address] 11/19/2023 07:24:25 11/19/19 24 11/19/2023 IRON AND IBCT total iron binding capacity 284 ug/dL 250-45 0 normal Not Available [address] [place], [address] 11/19/2023 07:24:25 11/19/19 24 11/19/2023 IRON AND IBCT transferrin sat 16 % 15-50 normal Not Available Ariela avitia [address] [place], [address] 11/19/2023 07:24:25 11/19/19 24 11/19/2023 BASIC METAB OLIC PANEL calcium 8.5 mg/dL 8.5-10 .1 normal Not Available [address] [place], [address] 11/19/2023 07:49:36 11/19/19 24 11/19/2023 BASIC METAB OLIC PANEL glucose 93 mg/dL 74-106 normal Not Available Ethel green [address] [place], [address] 11/19/2023 07:49:36 11/19/19 24 11/19/2023 BASIC METAB OLIC PANEL BUN 12 mg/dL 7-18 normal Not Available Ethel green [address] [place], [address] 11/19/2023 07:49:36 11/19/19 24 11/19/2023 BASIC METAB OLIC PANEL creatinine 0.8 mg/dL 0.55-1 .02 normal Not Available [address] [place], [address] 11/19/2023 07:49:36 11/19/19 24 11/19/2023 BASIC METAB [...] young er-ag ed adult s. Not Available [address] [place], [address] 11/19/2023 07:49:36 11/19/19 24 11/19/2023 BASIC METAB OLIC PANEL sodium 147 mmol/ L 136-14 5 high Not Available [address] [place], [address] 11/19/2023 07:49:36 11/19/19 24 11/19/2023 BASIC METAB OLIC PANEL potassium 3.2 mmol/ L 3.5-5. 1 low Not Available [address] [place], [address] 11/19/2023 07:49:36 11/19/19 24 11/19/2023 BASIC METAB OLIC PANEL chloride 107 mmol/ L 98-107 normal Not Available [address] [place], [address] 11/19/2023 07:49:36 11/19/19 24 11/19/2023 BASIC METAB OLIC PANEL CO2 31.2 mmol/ L 21.0-3 2.0 normal Not Available [address] [place], [address] 11/19/2023 07:49:36 11/19/19 24 11/19/2023 BASIC METAB OLIC PANEL anion gap 8.8 mmol/ L 3-11 normal Not Available [address] [place], [address] 11/19/2023 07:49:36 11/19/19 24 11/19/2023 DANIEL TIN ferritin 169 NG/mL 8-252 normal Not Available [address] [place], [address] 11/19/2023 07:49:36 11/19/19 24 11/19/2023 MAGNE SIUM magnesium 1.8 mg/dL 1.8-2. 4 normal Not Available [address] [place], [address] 11/19/2023 07:49:37 11/19/19 24 11/19/2023 VITAM IN B12 vitamin B12 1124 pg/mL 193-98 6 high Not Available [address] [place], [address] 11/19/2023 07:49:37 11/19/19 24 11/19/2023 FOLAT E folate 19.3 NG/mL 8.6-20 .0 normal Not Available [address] [place], [address] 11/19/2023 07:49:37 11/19/19 24 11/20/2023 TRANS DANIEL N transferrin 188 mg/dL 201-35 2 abnormal Test perfo rmed or refer red by [facility] [address], [place] [address] Not Available [address] [place], [address] 11/23/2023 12:15:30 11/20/19 24 11/20/2023 BASIC METAB OLIC PANEL calcium 8.9 mg/dL 8.5-10 .1 normal Not Available [address] [place], [address] 11/20/2023 07:12:43 11/20/19 24 11/20/2023 BASIC METAB OLIC PANEL glucose 115 mg/dL 74-106 high Not Available Ethel green [address] [place], [address] 11/20/2023 07:12:43 11/20/19 24 11/20/2023 BASIC METAB OLIC PANEL BUN 19 mg/dL 7-18 high Not Available Ethel green [address] [place], [address] 11/20/2023 07:12:43 11/20/19 24 11/20/2023 BASIC METAB OLIC PANEL creatinine 1.0 mg/dL 0.55-1 .02 normal Not Available [address] [place], [address] 11/20/2023 07:12:43 11/20/19 24 11/20/2023 BASIC METAB [...] young er-ag ed adult s. Not Available [address] [place], [address] 11/20/2023 07:12:43 11/20/19 24 11/20/2023 BASIC METAB OLIC PANEL sodium 140 mmol/ L 136-14 5 normal Not Available [address] [place], [address] 11/20/2023 07:12:43 11/20/19 24 11/20/2023 BASIC METAB OLIC PANEL potassium 3.6 mmol/ L 3.5-5. 1 normal Not Available [address] [place], [address] 11/20/2023 07:12:43 11/20/19 24 11/20/2023 BASIC METAB OLIC PANEL chloride 100 mmol/ L 98-107 normal Not Available [address] [place], [address] 11/20/2023 07:12:43 11/20/19 24 11/20/2023 BASIC METAB OLIC PANEL CO2 33.2 mmol/ L 21.0-3 2.0 high Not Available [address] [place], [address] 11/20/2023 07:12:43 11/20/19 24 11/20/2023 BASIC METAB OLIC PANEL anion gap 6.8 mmol/ L 3-11 normal Not Available [address] [place], [address] 11/20/2023 07:12:43 12/02/19 24 12/02/2023 BASIC METAB OLIC PANEL calcium 9.8 mg/dL 8.5-10 .1 normal Not Available [address] [place], [address] 12/02/2023 16:25:21 12/02/19 24 12/02/2023 BASIC METAB OLIC PANEL glucose 104 mg/dL 74-106 normal Not Available Ethel green [address] [place], [address] 12/02/2023 16:25:21 12/02/19 24 12/02/2023 BASIC METAB OLIC PANEL BUN 20 mg/dL 7-18 high Not Available Ethel green [address] [place], [address] 12/02/2023 16:25:21 12/02/19 24 12/02/2023 BASIC METAB OLIC PANEL creatinine 1.1 mg/dL 0.55-1 .02 high Not Available [address] [place], [address] 12/02/2023 16:25:21 12/02/19 24 12/02/2023 BASIC METAB [...] young er-ag ed adult s. Not Available [address] [place], [address] 12/02/2023 16:25:21 12/02/19 24 12/02/2023 BASIC METAB OLIC PANEL sodium 143 mmol/ L 136-14 5 normal Not Available [address] [place], [address] 12/02/2023 16:25:21 12/02/19 24 12/02/2023 BASIC METAB OLIC PANEL potassium 4.6 mmol/ L 3.5-5. 1 normal Not Available [address] [place], [address] 12/02/2023 16:25:21 12/02/19 24 12/02/2023 BASIC METAB OLIC PANEL chloride 106 mmol/ L 98-107 normal Not Available [address] [place], [address] 12/02/2023 16:25:21 12/02/19 24 12/02/2023 BASIC METAB OLIC PANEL CO2 29.1 mmol/ L 21.0-3 2.0 normal Not Available [address] [place], [address] 12/02/2023 16:25:21 12/02/19 24 12/02/2023 BASIC METAB OLIC PANEL anion gap 7.9 mmol/ L 3-11 normal Not Available [address] [place], [address] 12/02/2023 16:25:21 12/02/19 24 12/02/2023 MAGNE SIUM magnesium 1.8 mg/dL 1.8-2. 4 normal Not Available [address] [place], [address] 12/02/2023 16:25:22 12/02/19 24 12/02/2023 NT-IA OBNP [...] false negat nadeem resul ts. Not Available [facility] (Registration ) [address] [place] [address] [place], [address], 12/02/2023 16:25:22 12/02/19 24 12/02/2023 COMPL ETE BLOOD COUNT NO DIFF WBC 7.43 10_3/ uL 4.4-10 .8 normal Not Available [address] [place], [address] 12/02/2023 16:35:23 12/02/19 24 12/02/2023 COMPL ETE BLOOD COUNT NO DIFF RBC 3.18 10_6/ uL 3.93-5 .22 low Not Available [address] [place], [address] 12/02/2023 16:35:23 12/02/19 24 12/02/2023 COMPL ETE BLOOD COUNT NO DIFF HGB 10.6 g/dL 11.2-1 5.7 low Not Available [address] [place], [address] 12/02/2023 16:35:23 12/02/19 24 12/02/2023 COMPL ETE BLOOD COUNT NO DIFF HCT 33.5 % 36.0-4 6.0 low Not Available [address] [place], [address] 12/02/2023 16:35:23 12/02/19 24 12/02/2023 COMPL ETE BLOOD COUNT NO DIFF MCV 105 fL 80-95 high 1+ macro cytos is Not Available [address] [place], [address] 12/02/2023 16:35:23 12/02/19 24 12/02/2023 COMPL ETE BLOOD COUNT NO DIFF MCH 33.3 pg 27.0-3 3.0 high Not Available [address] [place], [address] 12/02/2023 16:35:23 12/02/19 24 12/02/2023 COMPL ETE BLOOD COUNT NO DIFF MCHC 31.6 % 32.0-3 6.0 low Not Available [address] [place], [address] 12/02/2023 16:35:23 12/02/19 24 12/02/2023 COMPL ETE BLOOD COUNT NO DIFF RDW 13.3 % 11.7-1 4.6 normal Not Available [address] [place], [address] 12/02/2023 16:35:23 12/02/19 24 12/02/2023 COMPL ETE BLOOD COUNT NO DIFF platelet count 140 10_3/ uL 130-40 0 normal Not Available [address] [place], [address] 12/02/2023 16:35:23 12/02/19 24 12/02/2023 COMPL ETE BLOOD COUNT NO DIFF MPV 11.8 fL 8.0-11 .0 high Not Available [address] [place], [address] 12/02/2023 16:35:23 04/18/20 24 04/18/2024 COMPL ETE BLOOD COUNT NO DIFF WBC 6.58 10_3/ uL 4.4-10 .8 normal Not Available [address] [place], [address] 04/18/2024 15:08:25 04/18/20 24 04/18/2024 COMPL ETE BLOOD COUNT NO DIFF RBC 3.70 10_6/ uL 3.93-5 .22 low Not Available [address] [place], [address] 04/18/2024 15:08:25 04/18/20 24 04/18/2024 COMPL ETE BLOOD COUNT NO DIFF HGB 12.0 g/dL 11.2-1 5.7 normal Not Available [address] [place], [address] 04/18/2024 15:08:25 04/18/20 24 04/18/2024 COMPL ETE BLOOD COUNT NO DIFF HCT 38.0 % 36.0-4 6.0 normal Not Available [address] [place], [address] 04/18/2024 15:08:25 04/18/20 24 04/18/2024 COMPL ETE BLOOD COUNT NO DIFF MCV 103 fL 80-95 high Not Available [address] [place], [address] 04/18/2024 15:08:25 04/18/20 24 04/18/2024 COMPL ETE BLOOD COUNT NO DIFF MCH 32.4 pg 27.0-3 3.0 normal Not Available [address] [place], [address] 04/18/2024 15:08:25 04/18/20 24 04/18/2024 COMPL ETE BLOOD COUNT NO DIFF MCHC 31.6 % 32.0-3 6.0 low Not Available [address] [place], [address] 04/18/2024 15:08:25 04/18/20 24 04/18/2024 COMPL ETE BLOOD COUNT NO DIFF RDW 15.6 % 11.7-1 4.6 high Not Available [address] [place], [address] 04/18/2024 15:08:25 04/18/20 24 04/18/2024 COMPL ETE BLOOD COUNT NO DIFF platelet count 124 10_3/ uL 130-40 0 low Not Available [address] [place], [address] 04/18/2024 15:08:25 04/18/20 24 04/18/2024 COMPL ETE BLOOD COUNT NO DIFF MPV 11.2 fL 8.0-11 .0 high Not Available [address] [place], [address] 04/18/2024 15:08:25 04/18/20 24 04/18/2024 IRON AND IBCT iron 65 ug/dL 50-170 normal Not Available [facility] (Registration ) [address] [place] [address] [place], [address], 04/18/2024 16:07:17 04/18/20 24 04/18/2024 IRON AND IBCT total iron binding capacity 318 ug/dL 250-45 0 normal Not Available [facility] (Registration ) [address] [place] [address] [place], [address], 04/18/2024 16:07:17 04/18/20 24 04/18/2024 IRON AND IBCT transferrin sat 20 % 15-50 normal Not Available [facility] (Registration ) [address] [place] [address] [place], [address], 04/18/2024 16:07:17 04/18/20 24 04/18/2024 BASIC METAB OLIC PANEL calcium 9.4 mg/dL 8.5-10 .1 normal Not Available [facility] (Registration ) [address] [place] [address] [place], [address], 04/18/2024 16:09:17 04/18/20 24 04/18/2024 BASIC METAB OLIC PANEL glucose 103 mg/dL 74-106 normal Not Available [facility] (Registration ) [address] [place] [address] [place], [address], 04/18/2024 16:09:17 04/18/20 24 04/18/2024 BASIC METAB OLIC PANEL BUN 21 mg/dL 7-18 high Not Available [facility] (Registration ) [address] [place] [address] [place], [address], 04/18/2024 16:09:17 04/18/20 24 04/18/2024 BASIC METAB OLIC PANEL creatinine 1.0 mg/dL 0.55-1 .02 normal Not Available [facility] (Registration ) [address] [place] [address] [place], [address], 04/18/2024 16:09:17 04/18/20 24 04/18/2024 BASIC METAB [...] young er-ag ed adult s. Not Available [facility] (Registration ) [address] [place] [address] [place], [address], 04/18/2024 16:09:17 04/18/20 24 04/18/2024 BASIC METAB OLIC PANEL sodium 145 mmol/ L 136-14 5 normal Not Available [facility] (Registration ) [address] [place] [address] [place], [address], 04/18/2024 16:09:17 04/18/20 24 04/18/2024 BASIC METAB OLIC PANEL potassium 4.2 mmol/ L 3.5-5. 1 normal Not Available [facility] (Registration ) [address] [place] [address] [place], [address], 04/18/2024 16:09:17 04/18/20 24 04/18/2024 BASIC METAB OLIC PANEL chloride 107 mmol/ L 98-107 normal Not Available [facility] (Registration ) [address] [place] [address] [place], [address], 04/18/2024 16:09:17 04/18/20 24 04/18/2024 BASIC METAB OLIC PANEL CO2 31.4 mmol/ L 21.0-3 2.0 normal Not Available [facility] (Registration ) [address] [place] [address] [place], [address], 04/18/2024 16:09:17 04/18/20 24 04/18/2024 BASIC METAB OLIC PANEL anion gap 6.6 mmol/ L 3-11 normal Not Available [facility] (Registration ) [address] [place] [address] [place], [address], 04/18/2024 16:09:17 04/18/20 24 04/18/2024 DANIEL TIN ferritin 211 NG/mL 8-252 normal Not Available [facility] (Registration ) [address] [place] [address] [place], [address], 04/18/2024 16:09:18 04/18/20 24 04/18/2024 TSH (W/RE F FT4) TSH (w/ref FT4) 2.17 uIU/m L 0.36-3 .74 normal NOTE: Supra -phys iolog ic doses of Bioti n(B7) may cause false negat nadeem resul ts. Not Available [facility] (Registration ) [address] [place] [address] [place], [address], 04/18/2024 16:09:18 04/18/20 24 04/18/2024 VITAM IN D 25 TOTAL vitamin D 25 total 63.9 NG/mL 30-100 normal Refer ence Guide lines : Defic ient: <10 ng/ml Insuf ficie nt: 10-30 ng/ml Suffi cient : 30-10 0 ng/ml Toxic : >100 ng/ml Not Available [address] [place], [address] 04/18/2024 16:09:19 04/18/20 24 04/18/2024 HEMOG LOBIN [...] pleme nt 1):S1 3-s28 . Not Available [facility] (Registration ) [address] , [place], [address], 04/18/2024 16:21:24 10/14/19 24 10/14/2023 elect rocar diogr am No observ ation record ed. [facility] [address] , [place], [address], 10/14/2023 11:56:20 10/14/19 24 elect rocar diogr am No observ ation record ed. Not Available 2023 10:55:07 11/04/19 24 10/14/2023 rhyth m strip , EKG* No observ ation record ed. [email or web address] Not Available 2023 10:18:08 11/18/19 24 11/18/2023 US, duple x, lower extre mity Patien t Name: Rema Olson Unit #: [id number] Loc: ER Sonal ng Provid er: Braydon Doyle Accoun t #: [id number] Status : REG ER Primar y Care [facility] er: Erich Her M.D. Date of [...] tation , and color Dopple r. The transformer coil winder ior tibial veins are patent . IMPRES [...] above. Thank- you. [facility] [address], [place], [address] 11/18/2023 16:48:49 11/18/19 24 11/18/2023 CT imagi martin hackett Name: Rema Olson Unit #: [id number] Loc: ER Sonal salazar Provid er: Braydon Doyle Accoun t #: [id number] Status : REG ER Primar y Care Provid er: Erich Her M.D. Date of Exam: Sex: F : 1945 Age: 78 Exam(s ) a CT:CT chest PE CTA Exam(s ) CT CHEST PE CTA EXAM: CT CHEST PE CTA CLINIC AL HISTOR Y: tachyc ardia, atrial fib on thinne rs. TECHNI QUE: Imagin g Protoc ol: Axial CT angiog foiza was perfor med with multi- slice acquis [...] interl obular septal thicke jama greate r transformer coil winder iorly which could indica te mild CHF. No consol idatio n or domina nt measur able mass. Pleura : Small left pleura l effusi on. Heart: The heart is modera tely dilate d. Microbiology Supervisor ior perica rdial effusi on. Minima l [...] . Small perica rdial effusi on seen transformer coil winder iorly. Small left pleura l effusi on. [...] error, please notify us immedi zayly at [phone] and return the origin al report to us at the addres s above. Thank- you. [facility] [address], [place], [address] 11/19/2023 12:12:11 11/19/19 24 11/19/2023 ultra sound imagi martin hakcett Name: Rema Olson Unit #: [id number] Loc: MS Sonal salazar Provid er: Huseyin Bolaños M.D. Accoun t #: [id number] Status : ADM IN Primar y [facility] er: Erich Her M.D. Date of [...] at the addres s above. Thank- you. [place] [id number] [facility] [place], [address] 11/19/2023 12:12:11 01/18/20 24 11/15/2018 imagi ng/di [...] humeral fracture 2023- MD [address], [place], [address] , [facility] 4 17:34:10 Hypothyr oidism 47277480 Active 1959 EVIE shaw, [facility] 4 10:29:59 [facility] hyperten jason 26413689 Active 1959 EVIE shaw, [facility] 4 10:29:36 Hyperlip idemia 13994142 Active 1959 on statin MD [address], [place], [address] , [facility] 4 20:35:18 Spinal stenosis of lumbar region 83738972 Active 2012 s/p lumbar for[place] L4 MD [address], [place], [address] , [facility] 4 20:36:41 Sleep apnea 31384594 Active 2012 on CPAP MD [address], [place], [address] , [facility] 4 20:39:31 Gastroes ophageal reflux disease without esophagi tis 360159354 Completed 195908/12/2023 Removal Reason: resolved with surgical repair of HH MD [address], [place], [address] , [facility] 4 10:41:24 Family history of malignan t neoplasm of digestiv e organ 351017257 Active [address], [place], [address] , [facility] 4 20:37:03 Paresthe samir 65682583 Completed 201412/01/2014 11/28/19 15 - Comments only - Erich Her MD - check B12 and folate Problem Code: R20.2; Problem Code Type: ICD-10; Not Available [facility] 3 05:53:48 Adult health examinat ion Active [address], [place], [address] , [facility] 4 20:33:34 Pre-surg ruben evaluati [...] Problem Code Type: ICD-10; Not Available [facility] 3 05:53:48 Localize d edema 806176998 Completed 201501/29/2016 12/13/19 16 - Comments only - Erich Her MD - and some on left as well, will check BMP. 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 Nusrat esparza for removal. Problem Code: L72.3; Problem Code Type: ICD-10; Not Available [facility] 3 05:53:49 Chronic ulcer of foot [id number] Completed 201601/16/2017 12/18/19 17 - Comments only - Erich Her MD - Due to injury. This does appear to have some granulat ion tissue and to be healing. She is given a prescrip tion for Keflex to take only if erythema seems to be extendin g. Problem Code: L97.509; Problem Code Type: ICD-10; Not Available [facility] 3 05:53:49 Diarrhea [id number] Completed 201602/10/2017 02/05/20 17 - Comments only - Erich Her MD - [facility] ([place], [place]) over several months, we will collect stool for C. 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 6 mm PT1NO E2P2 poistive , HER2 negative MD [address], [place], [address] , [facility] 4 20:38:49 Pain in left lower limb 619013213 Active 2016 EVIE shaw, [facility] 4 10:32:00 Pain in thoracic spine 432506892 Active 2016 EVIE shaw, [facility] 4 10:32:06 Spasm 77918574 Active 2017 EVIE shaw, [facility] 4 10:33:28 Abdomina l distensi on, gaseous 704657556 Completed 201703/08/2018 Problem Code: R14.0; Problem Code Type: ICD-10; Not Available [facility] 3 05:53:50 Cellulit is of toe 93281750 Completed 201808/12/2018 Problem Code: L03.039; Problem Code Type: ICD-10; Not Available [facility] 3 05:53:51 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 4 14:36:02 Tachsrinivas lea 5793075 Completed 201811/25/2018 Problem Code: R00.0; Problem Code Type: ICD-10; Not Available [facility] 3 05:53:51 Pre-surg ruben evaluati on Completed 201811/25/2018 Problem Code: Z01.818; Problem Code Type: ICD-10; Not Available [facility] 3 05:53:51 Iron deficien cy anemia 91923471 Active 2019 elevated MCV: normal B12 2021, normal folate 2018 IV iron 2023 EGD 01/2022 paraesop hageal hernia (since repaired ) colo 03/2017 normal ERICH HER MD [facility] [address], [place], [address] , [facility]. 4 11:44:45 Lumbago with sciatica 962168072 Completed 201903/16/2020 02/24/20 20 - Comments only - Vy Pinon [employer] - Likely aggravat ed by increase d [...] M54.40; Problem Code Type: ICD-10; Not Available [facility] 3 05:53:52 Right side sciatica 06746310885 9101 Active 2019 EVIE HOOPER colin, [facility] 4 10:33:09 Left side sciatica 56428072653 9104 Active [address], [facility] [address] , [facility] 4 17:20:20 Diaphrag matic hernia 40399304 Completed 202108/11/2023 Removal Reason: s/p repair MD [address], [facility] [address] , [facility] 4 20:50:39 History of SARS-CoV -2 [id number] 4770882 Completed 202104/04/2022 03/21/20 22 - Comments only - Erich Her MD - testing is negative today in the office. Still some fatigue but otherwis e recoveri ng. Did get MAB. Already had covid bivalent booster prior to illness Problem Code: Z86.16; Problem Code Type: ICD-10; Not Available [facility] 3 05:53:53 Diarrhea 09311517 Completed 202104/18/2022 Problem Code: R19.7; Problem Code Type: ICD-10; MD [address], [facility] [address] , [facility] 4 21:03:02 Screenin g mammogra phy Completed 202208/11/[address], [facility] [address] , [facility] 4 20:36:56 Carpal tunnel syndrome of left wrist 34643907624 9102 Completed 202201/23/2023 Problem Code: G56.02; Problem Code Type: ICD-10; Not Available [facility] 4 05:37:46 Diarrhea 67190709 Active 2022 started colestip ol 01/2023 ERICH HER MD [address], [place], [address] , [facility]. 4 21:03:02 Carpal tunnel syndrome of right wrist 43011591303 9108 Completed 201803/19/2020 Problem Code: G56.01; Problem Code Type: ICD-10; Not Available [facility] 3 05:53:55 Pain of left knee joint 73893478071 4107 Completed 202107/30/2022 Problem Code: M25.562; Problem Code Type: ICD-10; Not Available [facility] 3 05:53:55 Hypersom korina 74895867 Completed 201311/27/2014 Problem Code: 780.54; Problem Code Type: ICD-9; Not Available [facility] 3 05:53:56 Screenin g for disorder Completed 201909/11/2021 Problem Code: Z13.9; Problem Code Type: ICD-10; Not Available [facility] 3 05:53:56 Anemia 078469955 Completed 201903/19/2020 Problem Code: D64.9; Problem Code Type: ICD-10; Not Available [facility] 3 05:53:56 Long-ter m current use of anticoag ulant 992110344 Completed 201709/01/2018 Problem Code: Z79.01; Problem Code Type: ICD-10; Not Available [facility] 3 05:53:57 Chronic rhinitis 63479222 Completed 202108/12/2021 Problem Code: J31.0; Problem Code Type: ICD-10; Not Available [facility] 3 05:53:57 Impaired fasting glycemia 396118472 Completed 201401/28/2023 Not Available [facility] 3 05:53:57 Fatigue 37022755 Completed 201903/19/2020 Problem Code: R53.83; Problem Code Type: ICD-10; Not Available [facility] 3 05:53:58 Upper respirat ory tract infectio n caused by Influenz a A 56626188194 9104 Completed 201707/02/2017 Problem Code: J09.x2; Problem Code Type: ICD-10; Not Available [facility] 3 05:53:59 Diarrhea 56794493 Completed 201709/01/2018 ERICH HER MD [facility] [address], [place], [address] [facility] 4 21:03:02 Acute upper respirat ory infectio n 39081529 Completed 202108/26/2021 Problem Code: J06.9; Problem Code Type: ICD-10; Not Available [facility] 3 05:53:59 Pain in right foot 19776166403 9107 Completed 202207/30/2022 Problem Code: M79.671; Problem Code Type: ICD-10; Not Available [facility] 3 05:54:00 Breast composit ion 716210825 Completed 201601/28/2023 Not Available [facility] 3 05:54:00 Changes in skin texture 685813804 Completed 202207/30/2022 Problem Code: R23.4; Problem Code Type: ICD-10; Not Available [facility] 3 05:54:01 Spasm 01880509 Completed 201603/23/2017 Problem Code: R25.2; Problem Code Type: ICD-10; EVIE shaw [facility] 4 10:33:28 Hyperten sive disorder 60758651 Completed 11/28/19 15 - Comments only - Erich Her MD - [facility] ed, no change in medicati ons Not Available [facility] 3 05:54:03 Arthralg ia of the ankle and/or foot 418410325 Completed 201501/30/2016 Problem Code: M25.571; Problem Code Type: ICD-10; Not Available [facility] 3 05:54:03 Dyspnea 865441782 Completed 201903/19/2020 Problem Code: R06.02; Problem Code Type: ICD-10; Danica Felix [facility] 4 14:39:47 Trigger finger of right hand 07991571394 521425 Completed 201803/19/2020 Problem Code: M65.341; Problem Code Type: ICD-10; Not Available [facility] 3 05:54:06 Cough 12155275 Completed 202108/12/2021 Problem Code: R05.1; Problem Code Type: ICD-10; Not Available [facility] 3 05:54:06 At risk - finding 325962169 Completed 201811/11/2018 Problem Code: Z91.89; Problem Code Type: ICD-10; Not Available [facility] 3 05:54:06 Cough 09346786 Completed 201706/15/2017 Problem Code: R05; Problem Code Type: ICD-10; Not Available [facility] 3 05:54:07 Preopera tive cardiova scular examinat ion Completed 202112/18/2021 Problem Code: Z01.810; Problem Code Type: ICD-10; Not Available [facility] 3 05:54:08 Arterial bruit 90445645 Completed 202109/11/2021 Not Available [facility] 3 05:54:08 Gastroes ophageal reflux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
--- OUTSIDE RECORDS SUMMARY | 2024-05-11 11:30 | XMS_ITS | Encounter Summary ---
Author Organization [place] [address] Care Team Providers Care Policyholder Information Clerk Name Role Phone Ana Her MD Primary Care Provider [phone] Encounter Details Date Type Department Care Team (Late st Contact Info) Description 03/09/2022 Telephone [place] [address] Prakash Mendez MD [facility] [place] [address] Social History Tobacco Use Types Packs/Day Years [...] the mobile number listed in her chart ([phone]). Her other daughter answered the phone and reported that she had just dropped her off in the Emergency Department at [facility] and parked the car. She was walking back to the building to be with her. I reassured her that going to the Emergency Department seemed like a reasonable plan. I assured her that we are always happy to see her here at [facility] anytime and that they could call back anytime with further questions or concerns. This note will be routed to the provider mentioned above. Prakash Mendez MD documented in this encounter Plan of Treatment Not on file documented as of this encounter Visit Diagnoses Not on filedocumented in this encounter Care Teams Policyholder Information Clerk Relationship Specialty Start Date End Date Ana Her MD [address] [place] [address] PCP - General 07/29/13 documented as of this encounter
--- OUTSIDE RECORDS SUMMARY | 2024-05-11 11:30 | XMS_ITS | Clinical Summary ---
Author Organization [facility] [place] [address] Care Team Providers Care Website Programmer Name Role Phone Ana Her MD Primary Care Provider [phone] Allergies No known active allergies Medications Medication [...] the eliquis and has been managed by [facility]. She has remained in [...] and ECG with Dr. Ana Her in [place] in January She will discuss ECHO results [...] - TT3 and FT4 nl - My BOBBIN COLLECTOR colleague called and spoke with covering MD [...] history exists Medical Devices Implanted Type Area Government Program Manager Device Identifier Shelf Expiration Date Model / Serial / Lot Breast Clip-02/26/20 17 Implanted: by Enzo Burkett MD (Quantity not on file) Breast Clip Left: Breast Bard - 0614 05/04/2019 [employer]ARK ULTRACOR BREAST TISSUE MARKER ULTRASOUND ENHANCED BLANCA / / [id number] Description:BLANCA Procedures Procedure Name Priority Date/Time Associated [...] who have questions please contact the health healthcare applications analyst that requested your imaging first. ? Jeanine Lobato ENROLLMENT MANAGEMENT DIRECTOR IMG MAMMO ORD ERABLES * DXA Central [...] BMD measurements and plots are available in EApptive under the imaging tab. Paper copies will be sent to providers without [employer] access. If you have received this report without the data sheet and do not have access to [place], please contact Radiology Training Lead at [phone] Thursday thru Thursday 8am-4pm. Thank you for letting us participate in the care of this patient. ??If you are a health care provider and have any questions regarding this report, please contact the number below. ??For patients who have questions please contact the health healthcare applications analyst that requested your imaging first. ? Electronically signed by: Nat Epperson MD, [facility] ([phone]), at 11/19/2020 1:09 PM Narrative 11/19/2020 1:09 [...] BMD measurements and plots are available in ECasentricunder the imaging tab. Paper copies will be sent to providers without E- access.If you have received this report without the data sheet and do not haveaccess to E-, please contact Radiology Training Lead at [phone] Thursday thrriday 8am-4pm. Thank you for letting us participate in the care of this patient. If youare a health care provider and have any questions regarding this report,please contact the number below. For patients who have questions please contactthe health healthcare applications analyst that requested your imaging first. Ricky Lowry [...] Status decision made by: Patient Care Teams Website Programmer Relationship Specialty Start Date End Date Ana Her MD [facility] [address] [place] [address] PCP - General 07/29/13
--- OUTSIDE RECORDS SUMMARY | 2024-05-11 11:30 | XMS_ITS | Encounter Summary ---
Author Organization [facility] [place] [address] Care Team Providers Care Installer Technician Name Role Phone Ana Her MD Primary Care Provider [phone] Encounter Details Date Type Department Care Team (Late st Contact Info) Description 03/09/2022 11:00 PM EST Ancillary Procedure Radiology Library at [facility] [place] [place] [address] Ana Her MD [address] [place] [address] [facility] [address] [place], [place] [id number] Social History Tobacco Use Types Packs/Day Years [...] Chest (03/09/2022 10:56 PM EST) Narrative [facility] - 03/09/2022 10:56 PM EST This exam is auto-finalizing. It's purpose is for storage only. Ana Her MD IM FILM LIBRARY ORD ERABLES [place], [place] documented in this encounter Visit Diagnoses Not on filedocumented in this encounter Care Teams Installer Technician Relationship Specialty Start Date End Date Ana Her MD [address] [facility] [address] [place] [address] PCP - General 07/29/13 documented as of this encounter
--- OUTSIDE RECORDS SUMMARY | 2024-05-11 11:31 | XMS_ITS | Encounter Summary ---
[place] [address] Care Team Providers Care Gas Stove Servicer Helper Name Role Phone Ana Her MD Primary Care Provider [phone] Encounter Details Date Type Department Care Team (Late st Contact Info) Description 06/12/2021 Telephone [place] [address] Chelsie Lauren Social History Tobacco Use Types [...] filedocumented in this encounter Care Teams Gas Stove Servicer Helper Relationship Specialty Start Date End Date Ana Her MD [address] [place] [address] PCP - General 07/29/13 documented as of this encounter
--- OUTSIDE RECORDS SUMMARY | 2024-05-11 11:31 | XMS_ITS | Encounter Summary ---
Author Organization [facility] [place] [address] Care Team Providers Care Institutional Cook Name Role Phone Ana Her MD Primary Care Provider [phone] Encounter Details Date Type Department Care Team (Latest Contact Info) Description 05/31/2019 10:16 AM EST - 05/31/2019 11:59 PM EST Hospital Encounter Mammography/[place] [address] Jeanine Lobato APRN [facility] [place] [address] History of breast cancer Discharge Disposition: Home [...] BIRADS CATEGORY 2: Benign findings. * ??[employer] and [employer] Society of [...] breast documented in this encounter Care Teams Institutional Cook Relationship Specialty Start Date End Date Ana Her MD [address] [place] [address] PCP - General 07/29/13 documented as of this encounter
--- OUTSIDE RECORDS SUMMARY | 2024-05-11 11:31 | XMS_ITS | Encounter Summary ---
Author Organization [facility] [place] [address] Care Team Providers Care Shorthand Teacher Name Role Phone Ana Her MD Primary Care Provider [phone] Encounter Details Date Type Department Care Team (Late st Contact Info) Description 01/08/2022 7:42 AM EDT Anesthesia Event [place] [address] Alisa Naqvi MD [facility] [place] [address] Anesthesia Record Procedure Summary Procedure Name Responsible [...] stop data 0826 Recovery or ICU Handoff Claduia ent care was transferred to the destination [...] cephalic vein (lateral side of arm), left; oksw-tsz-yziaea catheter system; Anatomical Landmarks; 20 gauge; Joslyn [...] Procedure Summary Date: 01/08/22 Room / Location: [facility] OR [address] [place] [address] MAIN OR Anesthesia Start: 741 Anesthesia Stop: 825 Procedure: EGD, UPPER GI ENDOSCOPY (N/A Trunk) Diagnosis: (Hiatal hernia) Surgeons: Laura Will MD Responsible Provider: Alisa Naqvi MD Anesthesia Type: general ASA Status: 3 All Anesthesia Providers: Anesthesiologist: Alisa Naqvi MD Industrial Welder: Nghia Valerio MD Vitals Value Taken Time BP 98/56 01/08/22 0823 Temp Pulse Resp SpO2 99 % 01/08/22826 Pain Level Vitals shown include unvalidated device data. Patient Location: PACU/[facility] Level of Consciousness: Conscious but Sleepy [...] MD at [facility] MAIN OR Social History Tobacco Use [...] mg documented in this encounter Care Teams Shorthand Teacher Relationship Specialty Start Date End Date Ana Her MD [facility] [address] [facility] 1 [place] [address] PCP - General 07/29/13 documented as of this encounter
--- OUTSIDE RECORDS SUMMARY | 2024-05-11 11:31 | XMS_ITS | Encounter Summary ---
Author [place] [address] Care Team Providers Care Oven Loader Name Role Phone Ana Her MD Primary Care Provider [phone] Encounter Details Date Type Department Care Team (Late st Contact Info) Description 02/04/2022 12:00 PM EDT [place] [address] Social History Tobacco Use Types Packs/Day Years [...] on filedocumented in this encounter Care Teams Oven Loader Relationship Specialty Start Date End Date Ana Her MD [address] [place] [address] PCP - General 07/29/13 documented as of this encounter
--- OUTSIDE RECORDS SUMMARY | 2024-05-11 11:31 | XMS_ITS | Encounter Summary ---
[place] [address] Care Team Providers Care Electric Sign Wirer Name Role Phone Ana Her MD Primary Care Provider [phone] Reason for Visit * Reason Comments Follow-up Encounter Details Date Type Department Care Team (Late st Contact Info) Description 11/15/2020 4:00 PM EDT Office Visit Hematology [place] [address] Laura Joaquin PA Malignant neoplasm of lower-outer [...] ??Excision with image-guided localization ?Lymph Node Sampling: ??[place] lymph node(s) ?Specimen Laterality: ??Left Tumor ?Histologic [...] ??DCIS not present in specimen Lymph Nodes ?[place] Lymph Nodes: [place] lymph node biopsy performed ?Number of [place] Nodes Examined: ??3 ?Number of Lymph Node(s) [...] Medical Oncology - Breast & GI Cancers [facility] Pager - [phone] documented in this encounter Plan of Treatment Not on file documented as of this encounter Visit Diagnoses Diagnosis 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, estrogen receptor positive documented in this encounter Care Teams Electric Sign Wirer Relationship Specialty Start Date End Date Ana Her MD [address] [place] [address] PCP - General 07/29/13 documented as of this encounter
--- OUTSIDE RECORDS SUMMARY | 2024-05-11 11:31 | XMS_ITS | Encounter Summary ---
[place] [address] Care Team Providers Care Upper Doubler Name Role Phone Ana Her MD Primary Care Provider [phone] Encounter Details Date Type Department Care Team (Late st Contact Info) Description 02/26/2022 Orders Only [place] [address] Alicia Manning RN Social History Tobacco Use [...] on filedocumented in this encounter Care Teams Upper Doubler Relationship Specialty Start Date End Date Ana Her MD [address] [place] [address] PCP - General 07/29/13 documented as of this encounter
--- OUTSIDE RECORDS SUMMARY | 2024-05-11 11:31 | XMS_ITS | Encounter Summary ---
[place] [address] Care Team Providers Care Senior Software Systems Engineer Name Role Phone Ana Her MD Primary Care Provider [phone] Reason for Visit * Reason Comments Follow-up Encounter Details Date Type Department Care Team (Late st Contact Info) Description 06/11/2021 11:00 AM EST Office Visit Hematology [place] [address] Laura Joaquin PA 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, estrogen receptor positive; intermediate current 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 inhibitor Social [...] ??Excision with image-guided localization ?Lymph Node Sampling: ??[place] lymph node(s) ?Specimen Laterality: ??Left Tumor ?Histologic [...] ??DCIS not present in specimen Lymph Nodes ?[place] Lymph Nodes: [place] lymph node biopsy performed ?Number of [place] Nodes Examined: ??3 ?Number of Lymph Node(s) [...] on RA Breasts: deferred (examined by surgery SCHOOL AGE PROGRAM ASSOCIATE today) Neuro: grossly nonfocal. Results: Last DXA [...] Breast & GI Cancers [facility] Pager - [phone] No future appointments. 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
--- OUTSIDE RECORDS SUMMARY | 2024-05-11 11:31 | XMS_ITS | Encounter Summary ---
Author Organization [facility] [place] [address] Care Team Providers Care Resident Hall Director Name Role Phone Ana Her MD Primary Care Provider [phone] Encounter Details Date Type Department Care Team (Latest Contact Info) Description 06/11/2021 8:41 AM EST - 06/11/2021 11:59 PM [facility] Hospital Encounter Mammography/[place] [address] Jeanine Lobato APRN [facility] [place] [address] Malignant neoplasm of lower-outer quadrant of left [...] Take 40 mg by mouth daily. omega 9-rqd-xtv-fish-turm salty 417 mg-120 mg- 276 mg-600 mg [...] who have questions please contact the health tire care manager that requested your imaging first. ? Jeanine Lobato EXERCISE INSTRUCTOR IMG MAMMO ORD ERABLES documented in this encounter Visit Diagnoses Diagnosis 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, estrogen receptor positive Breast cancer screening by mammogram documented in this encounter Care Teams Resident Hall Director Relationship Specialty Start Date End Date Ana Her MD [address] [place] [address] PCP - General 07/29/13 documented as of this encounter
--- OUTSIDE RECORDS SUMMARY | 2024-05-11 11:31 | XMS_ITS | Encounter Summary ---
Author Organization [facility] [place] [address] Care Team Providers Care Furniture Builder Name Role Phone Ana Her MD Primary Care Provider [phone] Reason for Visit * Consultation (Routine) - Closed Specialty Diagnoses / Procedures Referred By Christiano hackett Referred To Contact General Surgery Diagnoses Hiatal hernia Ana Her MD [address] [place] [address] [facility] Surgery [address] [place] [address] Referral ID Status Reason Start Date Expiration Date V isits Requested Visits Authorized [id number] Closed Consult, Test & Treat 09/23/2021 09/23/2022 6 6 Encounter Details Date Type Department Care Team (Latest Contact Info) Description 12/05/2021 3:00 PM EDT Office [place] [address] Laura Will MD [facility] [place] [address] Paraesophageal hernia Social History Tobacco [...] of left breast of female, estrogen receptor nhkebyoyZ61.512, Z17.0 ??? Anemia D64.9 ??? Aortic valve [...] performed by Malika Chen MD at [facility] MAIN OR ??? PRO INTRAOP SENTINEL LYMPH ID W/DYE INJECTION Left 03/30/2017 INTRAOPERATIVE ID (MAPPING) SENTINEL LYMPH NODE,INCLUDES INJECTION (WRVU 2.5) performed by Malika Chen MD at [facility] MAIN OR ??? PRO MASTECTOMY PARTIAL Left 03/30/2017 MASTECTOMY PARTIAL (WRVU 10.13) performed by Malika Chen MD at [facility] MAIN OR Cholecystectomy Medications: Current Outpatient Medications: [...] gangrene documented in this encounter Care Teams Furniture Builder Relationship Specialty Start Date End Date Ana Her MD [address] [place] [address] PCP - General 07/29/13 documented as of this encounter
--- OUTSIDE RECORDS SUMMARY | 2024-05-11 11:31 | XMS_ITS | Encounter Summary ---
[place] [address] Care Team Providers Care Fusion Juncture Grinder Name Role Phone Ana Her MD Primary Care Provider [phone] Reason for Visit * Reason Comments Follow-up Encounter Details Date Type Department Care Team (Late st Contact Info) Description 11/29/2019 2:45 PM EDT Office Visit Hematology [place] [address] Ricky Lowry MD Malignant neoplasm of lower-outer [...] cancer cells with immunostaining) Stain intensity: Strong NC immunoreactivity: Positive (>90% cancer cells with immunostaining) [...] ??Excision with image-guided localization ?Lymph Node Sampling: ??[place] lymph node(s) ?Specimen Laterality: ??Left Tumor ?Histologic [...] ??DCIS not present in specimen Lymph Nodes ?[place] Lymph Nodes: [place] lymph node biopsy performed ?Number of [place] Nodes Examined: ??3 ?Number of Lymph Node(s) [...] Spinal stenosis > A Fib. Cardiology at [facility]. S/P successful cardioversion May [...] positive documented in this encounter Care Teams Fusion Juncture Grinder Relationship Specialty Start Date End Date Ana Her MD [address] [place] [address] PCP - General 07/29/13 documented as of this encounter
--- OUTSIDE RECORDS SUMMARY | 2024-05-11 11:31 | XMS_ITS | Encounter Summary ---
Author Organization [facility] [place] [address] Care Team Providers Care Telephone Order Supervisor Name Role Phone Ana Her MD Primary Care Provider [phone] 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 * Diagnostic Test (Routine) - Closed Specialty Diagnoses / Procedures Referred By Contac t Referred To Contact Radiology Diagnoses 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, estrogen receptor positive Osteopenia of neck of femur, unspecified laterality care home current 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 inhibitor Procedures DXA Central Spine, Hip, and/or Whole Body (Generic) Ricky Lowry MD [facility] HEMATOLOGY/[place] [address] [facility] Rad Xray [address] [place] [address] [place] [address] Referral ID Status Reason Start Date Expiration Date V isits Requested Visits Authorized [id number] Closed Specialty Service Requested 05/22/2020 11/19/2021 1 [...] and/or Whole Body (Generic) Ricky Lowry MD [facility] HEMATOLOGY/[place] [address] [facility] Rad Xray [address] [place] [address] Dr [place] [address] Referral ID Status Reason Start Date Expiration Date V isits Requested Visits Authorized [id number] Closed Specialty Service Requested 05/22/2020 11/19/2021 1 1 Encounter Details Date Type Department Care Team (Latest Contact Info) Description 11/15/2020 2:25 PM EDT - 11/15/2020 11:59 PM EDT Hospital Encounter XRay at [address] [place] [address] Ricky Lowry MD Malignant neoplasm of lower-outer [...] Take 40 mg by mouth daily. 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 Paper copies will be sent to providers without E- access. If you have received this report without the data sheet and do not have access to EKustomNote, please contact Radiology Chrome Tanner at [phone] Thursday thru Thursday 8am-4pm. Thank you for letting us participate in the care of this patient. ??If you are a health care provider and have any questions regarding this report, please contact the number below. ??For patients who have questions please contact the health healthcare applications analyst that requested your imaging first. ? Narrative [...] BMD measurements and plots are available in EYoopayunder the imaging tab. Paper copies will be sent to providers without - access.If you have received this report without the data sheet and do not haveaccess to [facility], please contact Radiology Chrome Tanner at [phone] Thursday thrrid 8am-4pm. Thank you for letting [...] inhibitors documented in this encounter Care Teams Telephone Order Supervisor Relationship Specialty Start Date End Date Ana Her MD [address] [place] [address] PCP - General 07/29/13 documented as of this encounter
--- OUTSIDE RECORDS SUMMARY | 2024-05-11 11:31 | XMS_ITS | Encounter Summary ---
[place] [address] Care Team Providers Care Escalator Operator Name Role Phone Ana Her MD Primary Care Provider [phone] Reason for Visit * Auth/Cert Specialty Diagnoses / Procedures Referred By Christiano hackett Referred To Contact Diagnoses S/P repair of paraesophageal hernia Post-Op monitoring Procedures PRO LAPARSCOPY REPAIR PARAESOPHAGEAL HERNIA INCL FUNDOPLASTY W/O MESH LAPAROSCOPIC PARAESOPHAGEAL HERNIA REPAIR W/FUNDOPLASTY, W/O MESH (WRVU 26.6) MODIFIER TOUPET FUNDOPLASTY Shania Will MD [facility] [place] [address] [facility] Referral ID Status Reason Start Date Expiration Date Visits Re quested Visits Authorized [id number] 1 1 Encounter Details Date Type Department Care Team (Late st Contact Info) Description 03/05/2022 12:54 PM EDT - 03/05/2022 4:55 PM EDT Surgery [place] [phone] Shania Will MD [facility] [place] [address] LAPAROSCOPIC PARAESOPHAGEAL HERNIA REPAIR W/FUNDOPLASTY, W/O MESH [...] of left breast of female, estrogen receptor [id number], Z17.0 ??? Anemia D64.9 ??? Aortic valve [...] Per chart review, her creatinine levels in [id number] ranged from 0.87-1.50 indicative of possible undiagnosed [...] PM Shania Will MD General Surgery at [facility] Arrive at: Automation Qtp Tester Area [phone] Instructions Given to Patient at Discharge: Patient [...] hours please call the Surgery Clinic at [phone] before 5 PM on weekdays. For questions after hours and on weekends please call the hospital specialties operator at [phone] and ask for the General Surgery resident nutritional yeast supervisor. They may not be familiar with your [...] post Sly diet, as instructed by the biology internship in the hospital for a period of [...] renal function. Please call the clinic at [phone] to confirm or reschedule. Future Appointments Date Time Provider Department Center 04/03/2022 12:00 PM Shania Will MD [facility] SURG [facility] General Instructions None Future Appointments and Orders Future Appointments and Orders Future Appointments Provider Department Dept Phone 04/03/2022 12:00 PM Shania Will MD General Surgery at [facility] Arrive at: Automation Qtp Tester Area 4L [phone] Signed: Shena Harden MD 03/07/22 7:18 AM [phone] Primary Saima Physician: MD Geovany David DR [facility] [id number] documented in this encounter Discharge Instructions * Patient Instructions* hSena Harden MD - 03/06/2022 9:56 AM EDT [...] hours please call the Surgery Clinic at [phone] before 5 PM on weekdays. For questions after hours and on weekends please call the hospital specialties operator at [phone] and ask for the General Surgery resident nutritional yeast supervisor. They may not be familiar with your [...] post Sly diet, as instructed by the biology internship in the hospital for a period of [...] renal function. Please call the clinic at [phone] to confirm or reschedule. Future Appointments Date Time Provider Department Center 04/03/2022 12:00 PM Shania Will MD [facility] SURG [facility] documented in this encounter Medications at Time [...] Ocampo RN - 03/07/2022 10:25 AM EDT [facility] Short Stay Unit Discharge Note All relevant [...] Sly Diet Education to pt Digna Olson. Sales Communications Manager metwith pt at bedside to deliver [...] she is noticing some overall improvement post op.Sales Communications Manager took note of this and encouraged [...] Department contact information provided. Pt appreciate of medical writer's time. Nutrition to follow as [...] Perez MD 03/05/2022 Minimally Invasive Surgery Pager #[phone] * Lorrie Slater RN - 03/05/2022 6:46 [...] ?? She is followed by cardiology at [facility], and is on xarelto. ?? [...] of left breast of female, estrogen receptor [id number], Z17.0 ??? Anemia D64.9 ??? Aortic valve [...] 6.43) performed by Malika Chen MD at [facility] MAIN OR ??? PRO INTRAOP SENTINEL LYMPH ID W/DYE INJECTION Left 03/30/2017 ?? INTRAOPERATIVE ID (MAPPING) SENTINEL LYMPH NODE,INCLUDES INJECTION (WRVU 2.5) performed by Malika Chen MD at [facility] MAIN OR ??? PRO MASTECTOMY PARTIAL Left 03/30/2017 ?? MASTECTOMY PARTIAL (WRVU 10.13) performed by Malika Chen MD at [facility] MAIN OR ?? Cholecystectomy ?? Medications: ?? [...] Miscellaneous Notes * Brief Op Note - rPakash Mendez - 03/05/2022 5:54 PM EDT Brief Operative Note Patient Name: Digna Olson : [id number] MR#: [id number] Case Date: 03/05/2022 Surgeon: Surgeon(s) and Role: * Shania Will MD - Primary * Prakash eMndez MD - Resident * Jennifer Flores MD [...] Flores MD - 03/05/2022 2:32 PM EDT [facility] Operative Note Patient Name: Digna Olson : [id number] MR#: [id number] Case Date: 03/05/2022 Surgeon: Surgeon(s) and Role: [...] mediastinal dissection to mobilize the esophagus. A Lejunior which was placed around the esophagus was [...] Repair Paraesophageal Hernia Incl Fundoplasty W/O Mesh ([id number]) 03/05/2022 1:58 PM EDT Paraesophageal Hernia POCT GLUCOSE Routine 03/05/2022 12:18 PM EDT LAPAROSCOPIC PARAESOPHAGEAL HERNIA REPAIR W FUNDOPLASTY, W/O MESH Routine 03/05/2022 12:02 PM EDT documented in this encounter Results * (ABNORMAL) Differential, Automated (03/07/2022 5:08 AM EDT) Neutrophil % 80.0 % [facility] Neutrophil Absolute 5.30 1.70 - 6.10 x10(3)/mc L [facility] Lymph % 12.1 % [facility] Lymphocytes Abs 0.8(L) 0.9 - 3.2 x10(3)/mc L [facility] Monocyte % 7.6 % [facility] Monocyte Abs 0.5 0.3 - 0.9 x10(3)/mc L [facility] Eos % 0.0 % [facility] Eosinophils Abs 0.0 0.0 - 0.4 x10(3)/[facility] Basophil % 0.0 % [facility] Baso Absolute 0.0 0.0 - 0.1 x10(3)/[facility] Immature Gran % 0.30 % [facility] Comment: Immature granulocytes(IG's)percentage and absolute count will include metamyelocytes, myelocytes, and promyelocytes. Blood smears from CBCs yielding IG's will be scanned manually for concordance. If this scan disagrees with the automated IG or if promyelocytes are noted, a manual differential will be performed. Immature Gran Absolute 0.02 0.00 - 0.04 x10(3)/[facility] Blood 03/07/2022 5:08 AM EDT 03/07/2022 5:19 AM EDT Narrative Resulting Agency Comment Spec In Lab Nino Levy MD HEMATOLOGY ORDERABLE S [facility] [place] [address] * (ABNORMAL) Hemogram (03/07/2022 5:08 AM EDT) White Blood Cell 6.6 4.0 - 9.5 x10(3)/[facility] Red Blood Cell 3.16(L) 4.00 - 5.21 x10(6)/[facility] Hemoglobin 10.7(L) 11.7 - 15.5 g/dL [facility] Hematocrit 31.7(L) 35.7 - 45.8 % [facility] Mean Cell Volume 100.3(H) 82.6 - 94.[address] [facility] Mean Cell Hemoglobin 33.9(H) 27.1 - 32.[address] [facility] Mean Cell Hemoglobin Concentration 33.8 31.7 - 35.0 g/dL [facility] Platelet 110(L) 145 - 357 x10(3)/mc L [facility] RDW Standard Deviation 47.5(H) 37.0 - 46.0 [facility] RDW coefficient of variation 12.9 11.5 - 14.1 % [facility] Mean Platelet Volume 11.7 7.6 - 12.9 [facility] NRBC% auto 0.0 % [facility] NRBC Absolute 0.000 0.000 - 0.000 x10(3)/mc L [facility] Blood 03/07/2022 5:08 AM EDT 03/07/2022 5:19 AM EDT Narrative Resulting Agency Comment Spec In Lab Nino Leyv MD HEMATOLOGY ORDERABLE S Performing Organization Address City/[facility]/[place] [address] * Phosphorus (03/07/2022 5:08 AM EDT) Phosphorus 2.7 2.5 - 4.5 mg/dL [facility] Blood 03/07/2022 5:08 AM EDT 03/07/2022 5:19 AM EDT Narrative Resulting Agency Comment Spec In Lab Shania Will MD CHEMISTRY ORDERABLE S Performing Organization Address City/[facility]/ZIP Co de Phone Number [facility] [place] [address] * Magnesium (03/07/2022 5:08 AM EDT) Magnesium 0.89 0.69 - 1.07 mmol/L [facility] Blood 03/07/2022 5:08 AM EDT 03/07/2022 5:19 AM EDT Narrative Resulting Agency Comment Spec In Lab Shania Will MD CHEMISTRY ORDERABLE S [facility] [place] [address] * (ABNORMAL) Basic Metabolic Panel (non-fasting) (03/07/2022 5:08 AM EDT) Glucose 111 65 - 199 mg/dL [facility] Comment:Diabetes: >=200 mg/d L plus symptoms Blood Urea Nitrogen 22(H) 8 - 18 mg/dL [facility] Creatinine 0.93 0.70 - 1.20 mg/dL [facility] Sodium 131(L) 135 - 145 mmol/L [facility] Potassium 4.5 3.5 - 5.0 mmol/L [facility] Comment: Please note: ??Patients with WBC >100,000 may have falsely elevated Potassium levels. ??For accurate Potassium quantification in these patients send serum separator tube (gold top) for subsequent determinations. ??Contact the Clinical Chemistry Laboratory if there are any questions. Chloride 100 98 - 107 mmol/L [facility] Carbon Dioxide 22 22 - 31 mmol/L [facility] Anion Gap 9 5 - 15 mmol/L [facility] Calcium 9.2 8.5 - 10.5 mg/dL [facility] Est Glomerular Filtration Rate 64 >=60 mL/min/1. 73 m?? [facility] Comment: This patient's estimated GFR [...] MD CHEMISTRY ORDERABLE S Performing Organization Address City/[facility]/ZIP Co de Phone Number [facility] [place] [address] * (ABNORMAL) Differential, Automated (03/06/2022 10:15 AM EDT) Neutrophil % 90.7 % [facility] Neutrophil Absolute 5.79 1.70 - 6.10 x10(3)/mc L [facility] Lymph % 5.0 % [facility] Lymphocytes Abs 0.3(L) 0.9 - 3.2 x10(3)/mc L [facility] Monocyte % 3.8 % [facility] Monocyte Abs 0.2(L) 0.3 - 0.9 x10(3)/mc L [facility] Eos % 0.0 % [facility] Eosinophils Abs 0.0 0.0 - 0.4 x10(3)/[facility] Basophil % 0.0 % [facility] Baso Absolute 0.0 0.0 - 0.1 x10(3)/ L [facility] Immature Gran % 0.50 % [facility] Comment: Immature granulocytes(IG's)percentage and absolute count will include metamyelocytes, myelocytes, and promyelocytes. Blood smears from CBCs yielding IG's will be scanned manually for concordance. If this scan disagrees with the automated IG or if promyelocytes are noted, a manual differential will be performed. Immature Gran Absolute 0.03 0.00 - 0.04 x10(3)/mc L [facility] Blood 03/06/2022 10:1 5 AM EDT 03/06/2022 10:21 AM EDT Narrative Resulting Agency Comment Spec In Lab Maryam MUELLER HEMATOLOGY ORDERABL ES Performing Organization Address City/[facility]/ZIP Co de Phone Number [facility] [place] [address] * (ABNORMAL) Hemogram (03/06/2022 10:15 AM EDT) White Blood Cell 6.4 4.0 - 9.5 x10(3)/mc L [facility] Red Blood Cell 3.07(L) 4.00 - 5.21 x10(6)/mc L [facility] Hemoglobin 10.5(L) 11.7 - 15.5 g/dL [facility] Hematocrit 31.1(L) 35.7 - 45.8 % [facility] Mean Cell Volume 101.3(H) 82.6 - 94.[address] [facility] Mean Cell Hemoglobin 34.2(H) 27.1 - 32.[address] [facility] Mean Cell Hemoglobin Concentration 33.8 31.7 - 35.0 g/dL [facility] Platelet 111(L) 145 - 357 x10(3)/[facility] RDW Standard Deviation 47.2(H) 37.0 - 46.0 [facility] RDW coefficient of variation 12.9 11.5 - 14.1 % [facility] Mean Platelet Volume 11.5 7.6 - 12.9 [facility] NRBC% auto 0.0 % [facility] NRBC Absolute 0.000 0.000 - 0.000 x10(3)/ L [facility] Blood 03/06/2022 10:1 5 AM EDT 03/06/2022 10:21 AM EDT Narrative Resulting Agency Comment Spec In Lab Maryam MUELLER HEMATOLOGY ORDERABL ES [facility] [place] [address] * Phosphorus (03/06/2022 10:15 AM EDT) Phosphorus 3.3 2.5 - 4.5 mg/dL [facility] Blood 03/06/2022 10:1 5 AM EDT 03/06/2022 10:21 AM EDT Narrative Resulting Agency Comment Spec In Lab Shania Will MD CHEMISTRY ORDERABLE S [facility] [place] [address] * Magnesium (03/06/2022 10:15 AM EDT) Magnesium 0.69 0.69 - 1.07 mmol/L [facility] Blood 03/06/2022 10:1 5 AM EDT 03/06/2022 10:21 AM EDT Narrative Resulting Agency Comment Spec In Lab Shania Will MD CHEMISTRY ORDERABLE S Performing Organization Address City/[facility]/ZIP Co de Phone Number [facility] [place] [address] * (ABNORMAL) Basic Metabolic Panel (non-fasting) (03/06/2022 10:15 AM EDT) Glucose 155 65 - 199 mg/dL [facility] Comment:Diabetes: >=200 mg/d L plus symptoms Blood Urea Nitrogen 29(H) 8 - 18 mg/dL [facility] Creatinine 1.25(H) 0.70 - 1.20 mg/dL [facility] Sodium 134(L) 135 - 145 mmol/L [facility] [...] - 107 mmol/L [facility] Carbon Dioxide 23 22 - 31 mmol/L [facility] Anion Gap 10 5 - 15 mmol/L [facility] Calcium 8.9 8.5 - 10.5 mg/dL [facility] Est Glomerular Filtration Rate 45(L) >=60 mL/min/1. 73 m?? [facility] Comment: This patient's estimated GFR [...] HEALTH CARE SERVICES Co de Phone Number [facility] [place] [address] * (ABNORMAL) Differential, Automated (03/06/2022 4:29 AM EDT) Neutrophil % 90.5 % [facility] Neutrophil Absolute 4.47 1.70 - 6.10 x10(3)/mc L [facility] Lymph % 6.9 % [facility] Lymphocytes Abs 0.3(L) 0.9 - 3.2 x10(3)/mc L [facility] Monocyte % 2.2 % [facility] Monocyte Abs 0.1(L) 0.3 - 0.9 x10(3)/mc L [facility] Eos % 0.0 % [facility] Eosinophils Abs 0.0 0.0 - 0.4 x10(3)/mc L [facility] Basophil % 0.2 % [facility] Baso Absolute 0.0 0.0 - 0.1 x10(3)/mc L [facility] Immature Gran % 0.20 % [facility] Comment: Immature granulocytes(IG's)percentage and absolute count will include metamyelocytes, myelocytes, and promyelocytes. Blood smears from CBCs yielding IG's will be scanned manually for concordance. If this scan disagrees with the automated IG or if promyelocytes are noted, a manual differential will be performed. Immature Gran Absolute 0.01 0.00 - 0.04 x10(3)/[facility] Blood 03/06/2022 4:29 AM EDT 03/06/2022 4:49 AM EDT Narrative Resulting Agency Comment Spec In Lab Prakash Mendez MD HEMATOLOGY ORDERABLE S [facility] [place] [address] * (ABNORMAL) Hemogram (03/06/2022 4:29 AM EDT) White Blood Cell 4.9 4.0 - 9.5 x10(3)/[facility] Red Blood Cell 3.08(L) 4.00 - 5.21 x10(6)/[facility] Hemoglobin 10.5(L) 11.7 - 15.5 g/dL [facility] Hematocrit 31.0(L) 35.7 - 45.8 % [facility] Mean Cell Volume 100.6(H) 82.6 - 94.[address] [facility] Mean Cell Hemoglobin 34.1(H) 27.1 - 32.[address] [facility] Mean Cell Hemoglobin Concentration 33.9 31.7 - 35.0 g/dL [facility] Platelet 104(L) 145 - 357 x10(3)/[facility] RDW Standard Deviation 47.5(H) 37.0 - 46.[address] [facility] RDW coefficient of variation 12.9 11.5 - 14.1 % [facility] Mean Platelet Volume 11.8 7.6 - 12.[address] [facility] NRBC% auto 0.0 % [facility] NRBC Absolute 0.000 0.000 - 0.000 x10(3)/mc L [facility] Blood 03/06/2022 4:29 AM EDT 03/06/2022 4:49 AM EDT Narrative Resulting Agency Comment Spec In Lab Prakash Mendez MD HEMATOLOGY ORDERABLE S [facility] [place] [address] * (ABNORMAL) Basic Metabolic Panel (non-fasting) (03/06/2022 4:29 AM EDT) Glucose 140 65 - 199 mg/dL [facility] Comment:Diabetes: >=200 mg/d L plus symptoms Blood Urea Nitrogen 31(H) 8 - 18 mg/dL [facility] Creatinine 1.32(H) 0.70 - 1.20 mg/dL [facility] Sodium 136 135 - 145 mmol/L [facility] Potassium 5.3(H) 3.5 - 5.0 mmol/L [facility] Comment: Please note: ??Patients with WBC >100,000 may have falsely elevated Potassium levels. ??For accurate Potassium quantification in these patients send serum separator tube (gold top) for subsequent determinations. ??Contact the Clinical Chemistry Laboratory if there are any questions. Chloride 103 98 - 107 mmol/L [facility] Carbon Dioxide 23 22 - 31 mmol/L [facility] Anion Gap 10 5 - 15 mmol/L [facility] Calcium 9.0 8.5 - 10.5 mg/dL [facility] Est Glomerular Filtration Rate 42(L) >=60 mL/min/1. 73 m?? [facility] Comment: This patient's estimated GFR [...] MD CHEMISTRY ORDERABLE S Performing Organization Address City/[facility]/ZIP Co de Phone Number [facility] [place] [address] * POCT Glucose (03/05/2022 12:18 PM EDT) Glucose, POC 94 65 - 199 mg/dL [facility] Comment: Supplemental ranges: <140 mg/dL before meals <180 mg/dL all other times of the day Blood 03/05/2022 12:1 8 PM EDT 03/05/2022 12:18 PM EDT Shania Will MD POINT OF CARE TEST ORDERABLES Performing Organization Address City/[facility]/ZIP Co de Phone Number [facility] [place] [address] documented in this encounter Visit Diagnoses Not [...] Unit) documented in this encounter Care Teams Escalator Operator Relationship Specialty Start Date End Date Ana Her MD [address] [facility] [address] [place] [address] PCP - General 07/29/13 documented as of this encounter
--- OUTSIDE RECORDS SUMMARY | 2024-05-11 11:31 | XMS_ITS | Encounter Summary ---
Author Organization [facility] [place] [address] Care Team Providers Care Group Sales Manager Name Role Phone Ana Her MD Primary Care Provider [phone] 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 * Diagnostic Test (Routine) - Closed Specialty Diagnoses / Procedures Referred By Christiano hackett Referred To Contact Radiology Diagnoses 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, estrogen receptor positive Osteopenia of neck of femur, unspecified laterality MCC current 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 inhibitor Procedures DXA Central Spine, Hip, and/or Whole Body (Generic) Ricky Lowry MD [facility] DR HEMATOLOGY/[place] [address] [facility] Rad Xray [address] [place] [address] [place] [address] Referral ID Status Reason Start Date Expiration Date V isits Requested Visits Authorized [id number] Closed Specialty Service Requested 05/22/2020 11/19/2021 1 1 Encounter Details Date Type Department Care Team (Late st Contact Info) Description 05/22/2020 1:15 PM EST Office Visit Hematology and Oncology at 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 Cardiology at [facility]. S/P successful cardioversion May 2018. DEXA scan [...] BMD measurements and plots are available in [employer] under the imaging tab. Paper copies will be sent to providers without [employer] access. If you have received this report without the data sheet and do not have access to [employer], please contact Radiology [facility] at [phone] Thursday thru Thursday 8am-4pm. Thank you for letting us participate in the care of this patient. ??If you are a health care provider and have any questions regarding this report, please contact the number below. ??For patients who have questions please contact the health child day care teacher that requested your imaging first. ? Narrative [...] BMD measurements and plots are available in [employer] the imaging tab. Paper copies will be sent to providers without [employer] access.If you have received this report without the data sheet and do not haveaccess to [employer], please contact Radiology Specification Manager at [phone] Thursday thruFriday 8am-4pm. Thank you for letting us participate in the care of this patient. If youare a health care provider and have any questions regarding this report,please contact the number below. For patients who have questions please contactthe health child day care teacher that requested your imaging first. Ricky Lowry MD IMG DEXA ORDERABLES documented in this encounter Visit Diagnoses Diagnosis 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, estrogen receptor positive Osteopenia of neck of femur, unspecified laterality MCC current 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 inhibitor Use of aromatase inhibitors Malignant neoplasm of lower-outer quadrant of left breast of female, estrogen receptor positive Osteopenia of neck of femur, unspecified laterality MCC current 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 inhibitor Use of aromatase inhibitors documented in this encounter Care Teams Group Sales Manager Relationship Specialty Start Date End Date Ana Her MD [address] [place] [address] PCP - General 07/29/13 documented as of this encounter
--- OUTSIDE RECORDS SUMMARY | 2024-05-11 11:31 | XMS_ITS | Encounter Summary ---
[place] [address] Care Team Providers Care Finishing Range Operator Name Role Phone Ana Her MD Primary Care Provider [phone] 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 * Consultation (Routine) - Closed Specialty Diagnoses / Procedures Referred By Christiano hackett Referred To Contact Plastic Surgery Diagnoses Malignant neoplasm of lower-outer quadrant of left breast of female, estrogen receptor positive Macromastia Jeanine Lobato APRN [facility] [place] [address] [facility] Plastic [place]urg [address] [address] Referral ID Status Reason Start Date Expiration Date V isits Requested Visits Authorized [id number] Closed Consult, Test & Treat 06/11/2021 06/11/2022 1 1 Encounter Details Date Type Department Care Team (Late st Contact Info) Description 06/11/2021 10:00 AM EST Office [place] [address] Jeanine Lobato APRN [facility] [place] [address] Encounter for follow-up surveillance of [...] this encounter Progress Notes * Jeanine Lobato, SAFETY PATROL OFFICER - 06/11/2021 10:00 AM EST Images from [...] mm Grade Intermediate Margins Negative ER Positive NM Positive HER-2 Negative OncotypeDx Recurrence Score N/A [...] Family history of ovarian cancer No Ashkenazi Sikhism heritage No Known genetic mutation Not tested [...] situation. Results: Imaging performed (bilateral mammogram) at [facility] today shows no evidence of malignancy, BIRADS [...] free apps for your cell phone from [employer] ([employer]) and [employer] ([employer]). All questions were answered to the patient's satisfaction and they state understanding and agreement with today's treatment plan. They are encouraged to follow up sooner if they develop any new or concerning symptoms. Jeanine Lobato APRN Surgical Oncology P [phone] F [phone] [facility] documented [...] breast documented in this encounter Care Teams Finishing Range Operator Relationship Specialty Start Date End Date Ana Her MD [address] [place] [address] PCP - General 07/29/13 documented as of this encounter
--- OUTSIDE RECORDS SUMMARY | 2024-05-11 11:31 | XMS_ITS | Encounter Summary ---
Author Organization [facility] [place] [address] Care Team Providers Care Operating Room Nurse Name Role Phone Ana Her MD Primary Care Provider [phone] Encounter Details Date Type Department Care Team (Latest Contact Info) Description 01/08/2022 6:11 AM EDT - 01/08/2022 9:40 AM EDT Hospital Encounter [place] [phone] Laura Park MD [facility] [place] [address] Discharge Disposition: Home Social History Tobacco Use [...] a nurse in the Thoracic Clinic at [phone]. After hours or on weekends or holidays please call: [phone] and ask to speak to the Thoracic Physician electronic publisher. Diet: You should follow a clear liquid [...] - 5pm): General Surgery and Bariatric Surgery [phone] Bariatric Surgeons: Drs. Park and John [phone] Child Neurologist: [phone] Dietitians: [phone] Outside of regular business hours, including weekends and holidays: Ask for General Surgery resident electronic publisher [phone] Please note, this call will be answered [...] of left breast of female, estrogen receptor mvhpgnpsX47.512, Z17.0 ??? Anemia D64.9 ??? Aortic valve [...] at [facility] MAIN OR ?? Cholecystectomy ?? [...] Park MD - 01/08/2022 7:48 AM EDT [facility] Operative Note Patient Name: Digna Olson : [id number] MR#: [id number] Case Date: 01/08/2022 Surgeon: Surgeon(s) and Role: [...] Info Order Time SPECIMEN TO PATHOLOGY Gastric [facility] for H Pylori Hiatal hernia Gastric [facility] for H Pylori excision 01/08/2022 8:15 AM [...] 8:14 AM EDT Upper GI Endoscopy, Diagnostic (92276) Yes 01/08/2022 7:40 AM EDT Hiatal hernia [...] MD PATHOLOGY/CYTOLOGY ORDERABLES [facility] [place] [address] * Surgical Pathology Report (01/08/2022 8:14 AM EDT) Final Diagnosis [id number] ? Location: [facility]; [facility]; A The signing pathologist has (i) examined the relevant preparation(s) for the specimen(s) and (ii) rendered or confirmed the diagnosis(es). . ?Surgical Pathology DIAGNOSIS A - Gastric ??Antrum for H Pylori, excision: - ??Antrum-type mucosa with reactive gastropathy. Electronically signed by: ?Umang Raymundo MD Verified: ??01/09/2022 16:36 ??Pathologist Performed at: ??-[facility] Dept. of Pathology, [place], [place] SPECIMEN(S) SUBMITTED A - Gastric ??Antrum [...] MD PATHOLOGY/CYTOLOGY ORDERABLES [facility] [place] [address] * POCT Glucose (01/08/2022 6:33 AM EDT) Glucose, POC 120 65 - 199 mg/dL [facility] Comment: Supplemental ranges: <140 mg/dL before meals <180 mg/dL all other times of the day Blood 01/08/2022 6:33 AM EDT 01/08/2022 6:33 AM EDT Laura Park MD POINT [place] [address] documented in this encounter Visit Diagnoses Not on filedocumented in this encounter Active and Recently Administered Medications Care Teams Operating Room Nurse Relationship Specialty Start Date End Date Ana Her MD [address] [place] [address] PCP - General 07/29/13 documented as of this encounter
--- OUTSIDE RECORDS SUMMARY | 2024-05-11 11:31 | XMS_ITS | Encounter Summary ---
Author Organization [facility] [place] [address] Care Team Providers Care Ramp Jockey Name Role Phone Ana Her MD Primary Care Provider [phone] Encounter Details Date Type Department Care Team (Latest Contact Info) Description 01/23/2022 12:15 PM EDT TH Visit (TeleHealth) [place] [address] Laura Will MD [facility] [place] [address] Paraesophageal hernia Social History Tobacco Use Types [...] [facility], and is on xarelto. Impression: Symptomatic paraesophageal [...] gangrene documented in this encounter Care Teams Ramp Jockey Relationship Specialty Start Date End Date Ana Her MD [address] [facility] [address] [place] [address] PCP - General 07/29/13 documented as of this encounter
--- OUTSIDE RECORDS SUMMARY | 2024-05-11 11:31 | XMS_ITS | Encounter Summary ---
Author Organization [facility] [place] [address] Care Team Providers Care Enrollment Management Coordinator Name Role Phone Ana Her MD Primary Care Provider [phone] Reason for Visit * Reason Comments Follow-up Encounter Details Date Type Department Care Team (Late st Contact Info) Description 05/31/2019 11:45 AM EST Office Visit Hematology [place] [address] Ricky Lowry MD Malignant neoplasm of lower-outer [...] cancer cells with immunostaining) Stain intensity: Strong IA immunoreactivity: Positive (>90% cancer cells with immunostaining) [...] ??Excision with image-guided localization ?Lymph Node Sampling: ??[place] lymph node(s) ?Specimen Laterality: ??Left Tumor ?Histologic [...] ??DCIS not present in specimen Lymph Nodes ?[place] Lymph Nodes: [place] lymph node biopsy performed ?Number of [place] Nodes Examined: ??3 ?Number of Lymph Node(s) [...] Spinal stenosis > A Fib. Card[place] [facility] S/P successful cardioversion May 2018. DEXA scan [...] positive documented in this encounter Care Teams Enrollment Management Coordinator Relationship Specialty Start Date End Date Ana Her MD [facility] [address] [facility] [address] [place] [address] PCP - General 07/29/13 documented as of this encounter
--- OUTSIDE RECORDS SUMMARY | 2024-05-11 11:31 | XMS_ITS | Encounter Summary ---
[place] [address] Care Team Providers Care Police Booking Officer Name Role Phone Ana Her MD Primary Care Provider [phone] 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 * Consultation (Routine) - Closed Specialty Diagnoses / Procedures Referred By Christiano hackett Referred To Contact General Surgery Diagnoses Hiatal hernia Ana Her MD [address] [place] [address] [facility] Gen Surgery [address] [place] [id number] Referral ID Status Reason Start Date Expiration Date V isits Requested Visits Authorized [id number] Closed Consult, Test & Treat 09/23/2021 09/23/2022 6 6 Encounter Details Date Type Department Care Team (Late st Contact Info) Description 09/23/2021 Transcribe Orders eDH Incoming Referrals [phone] Ana Her MD [address] [place] [address] Hiatal hernia Social History Tobacco [...] gangrene documented in this encounter Care Teams Police Booking Officer Relationship Specialty Start Date End Date Ana Her MD [address] [place] [address] PCP - General 07/29/13 documented as of this encounter
--- OUTSIDE RECORDS SUMMARY | 2024-05-11 11:31 | XMS_ITS | Encounter Summary ---
Author Organization [facility] [place] [address] Care Team Providers Care Laborer Mine Name Role Phone Ana Her MD Primary Care Provider [phone] Encounter Details Date Type Department Care Team (Late st Contact Info) Description 05/10/2018 1:10 PM EST - 05/10/2018 11:59 PM EST Hospital Encounter Mammography/[place] [phone] Hiral Padgett, WENDY Encounter for screening mammogram [...] cancer documented in this encounter Care Teams Laborer Mine Relationship Specialty Start Date End Date Ana Her MD [address] [place] [address] PCP - General 07/29/13 documented as of this encounter
--- OUTSIDE RECORDS SUMMARY | 2024-05-11 11:31 | XMS_ITS | Encounter Summary ---
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, estrogen receptor positive Macromastia Jeanine Lobato APRN [facility] [place] [address] [facility] [address] [place] [address] Referral ID Status Reason Start Date Expiration Date V isits Requested Visits Authorized [id number] Closed Consult, Test & Treat 06/11/2021 06/11/2022 1 1 Encounter Details Date Type Department Care Team (Late st Contact Info) Description 07/09/2021 8:30 AM EST Office Visit [place] [address] Med Hudson MD [facility] [place] [address] Macromastia Social History Tobacco Use [...] physical with your primary care doctor and Vice President Compliance clearance Two Weeks prior to Surgery Do [...] Day of Surgery You will need a deliver driver. If you do not have a deliver driver, your surgery will be canceled. DO [...] pm) For an appointment or insurance questions [phone] For questions pertaining to your surgical date [phone] For nursing related questions [phone] On weekends, holidays or after office hours: Call and ask the paper core machine operator to page the Plastic Surgery Resident steward/stewardess second. documented in this encounter Progress Notes * [...] and was normal. This was performed at [facility]. She has completed a breast specific questionnaire: [...] None of the time Conservative Therapy Treatments: [facility] CONSERVATIVE THERAPY TREATMENTS 07/09/2021 Physical [...] by Malika Chen MD at [facility] MAIN OR ??? PRO INTRAOP SENTINEL LYMPH ID W/DYE INJECTION Left 03/30/2017 INTRAOPERATIVE ID (MAPPING) SENTINEL LYMPH NODE,INCLUDES INJECTION (WRVU 2.5) performed by Malika Chen MD at [facility] MAIN OR ??? PRO MASTECTOMY PARTIAL Left 03/30/2017 MASTECTOMY PARTIAL (WRVU 10.13) performed by Malika Chen MD at [facility] MAIN OR Family History Problem Relation Age [...] surgery is best done at a realistic fdc stable weight. We talked about the outpatient [...] revisions for scarring or asymmetry.) Garcia or [place] Pattern Incision: More scarring on breast, but [...] Timeframe: Elective Procedure: Bilateral breast reduction CPT: 31378 Surgical Technique: Garcia, Pedicle Surgical site: Breasts Side: Bilateral Anesthesia: General Follow up: 1 day for drain removal; 7-10 days for HCK PAT: H+P PCP, Cardiac clearance. Need to discontinue blood thinners pre-op? Xarelto documented in this encounter Plan of Treatment Not on file documented as of this encounter Visit Diagnoses Diagnosis Macromastia Hypertrophy of breast documented in this encounter Care Teams Plate Stacker Relationship Specialty Start Date End Date Ana Her MD [address] [place] [address] PCP - General 07/29/13 documented as of this encounter
--- OUTSIDE RECORDS SUMMARY | 2024-05-11 11:31 | XMS_ITS | Encounter Summary ---
[place] [address] Care Team Providers Care C D Reactor Operator Name Role Phone Ana Her MD Primary Care Provider [phone] Encounter Details Date Type Department Care Team (Late st Contact Info) Description 11/09/2018 2:45 PM EDT Office Visit [place]ology [place] [address] Ricky Lowry MD Malignant neoplasm of lower-outer [...] cancer cells with immunostaining) Stain intensity: Strong ND immunoreactivity: Positive (>90% cancer cells with immunostaining) [...] ??Excision with image-guided localization ?Lymph Node Sampling: ??[place] lymph node(s) ?Specimen Laterality: ??Left Tumor ?Histologic [...] ??DCIS not present in specimen Lymph Nodes ?[place] Lymph Nodes: [place] lymph node biopsy performed ?Number of [place] Nodes Examined: ??3 ?Number of Lymph Node(s) [...] stenosis > A Fib. Cardiology at [facility]. S/P successful cardioversion May [...] laterality documented in this encounter Care Teams C D Reactor Operator Relationship Specialty Start Date End Date Ana Her MD [address] [place] [address] PCP - General 07/29/13 documented as of this encounter
--- OUTSIDE RECORDS SUMMARY | 2024-05-11 11:31 | XMS_ITS | Encounter Summary ---
[place] [address] Care Team Providers Care Wind Operations Supervisor Name Role Phone Ana Her MD Primary Care Provider [phone] Encounter Details Date Type Department Care Team (Late st Contact Info) Description 05/10/2018 2:15 PM EST Office Visit [place] [address] Hiral Padgett, WENDY History of breast cancer [...] with image-guided localization ?Lymph Node Sampling: ?? [place] lymph node(s) ?Specimen Laterality: ?? Left Tumor [...] ?DCIS not present in specimen Lymph Nodes ?[place] Lymph Nodes: ?? [place] lymph node biopsy performed ?Number of [place] Nodes Examined: ?3 ?Number of Lymph Node(s) [...] mammogram today is cat 2. Leaving for [place] later today for a cardiac ablation/a fib at [facility]. Objective: Physical [...] breast documented in this encounter Care Teams Wind Operations Supervisor Relationship Specialty Start Date End Date Ana Her MD [address] [place] [address] PCP - General 07/29/13 documented as of this encounter
--- OUTSIDE RECORDS SUMMARY | 2024-05-11 11:31 | XMS_ITS | Encounter Summary ---
[place] [address] Care Team Providers Care Steward/Stewardess Second Class Name Role Phone Ana Her MD Primary Care Provider [phone] Encounter Details Date Type Department Care Team (Late st Contact Info) Description 12/24/2021 Telephone [place] [address] Chelsie Lauren Social History Tobacco Use Types [...] on filedocumented in this encounter Care Teams Steward/Stewardess Second Class Relationship Specialty Start Date End Date Ana Her MD [address] [place] [address] PCP - General 07/29/13 documented as of this encounter
--- OUTSIDE RECORDS SUMMARY | 2024-05-11 11:31 | XMS_ITS | Encounter Summary ---
Author Organization [facility] [place] [address] Care Team Providers Care Outdoor Guide Name Role Phone Ana Her MD Primary Care Provider [phone] Encounter Details Date Type Department Care Team (Late st Contact Info) Description 05/31/2019 1:00 PM EST Office [place] [address] Jeanine Lobato CERTIFIED FLIGHT INSTRUCTOR [facility] [place] [address] Encounter for follow-up surveillance of breast cancer; [...] was obtained which revealed IDC which is ER/ID+, Her2-. She hasno known breast masses, no adenopathy, no nipple discharge. 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 He lives in [place]. She enjoys reading and cooking. She does [...] situation. Results: Imaging performed (bilateral mammogram) at [facility] today shows no evidence of malignancy, BIRADS [...] symptoms. Jeanine Lobato APRN Surgical Oncology P [phone] F [phone] [facility] documented in this encounter Plan of Treatment [...] mammogram documented in this encounter Care Teams Outdoor Guide Relationship Specialty Start Date End Date Ana Her MD [facility] [address] [facility] [address] [place] [address] PCP - General 07/29/13 documented as of this encounter
--- OUTSIDE RECORDS SUMMARY | 2024-05-11 11:31 | XMS_ITS | Encounter Summary ---
[place] [address] Care Team Providers Care Feather Separator Name Role Phone Ana Her MD Primary Care Provider Encounter Details Date Type Department Care Team (Late st Contact Info) Description 11/01/2021 Telephone [place] [address] Chelsie Lauren Social History Tobacco Use Types [...] on filedocumented in this encounter Care Teams Feather Separator Relationship Specialty Start Date End Date Ana Her MD [address] [place] [address] PCP - General 07/29/13 documented as of this encounter
--- OUTSIDE RECORDS SUMMARY | 2024-05-11 11:31 | XMS_ITS | Encounter Summary ---
[place] [address] Care Team Providers Care Roller Printing Supervisor Name Role Phone Ana Her MD Primary Care Provider [phone] Encounter Details Date Type Department Care Team (Late st Contact Info) Description 06/12/2021 Telephone [place] [address] Chelsie Lauren Social History Tobacco Use Types [...] on filedocumented in this encounter Care Teams Roller Printing Supervisor Relationship Specialty Start Date End Date Ana Her MD [address] [place] [address] PCP - General 07/29/13 documented as of this encounter
--- OUTSIDE RECORDS SUMMARY | 2024-05-11 11:31 | XMS_ITS | Encounter Summary ---
[place] [address] Care Team Providers Care Floor Service Worker Spring Name Role Phone Ana Her MD Primary Care Provider [phone] 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 * Diagnostic Test (Routine) [...] MD [facility] DR HEMATOLOGY/[place] [address] [facility] Rad Xray [address] [place] [address] [place] [address] Referral ID Status Reason Start Date Expiration Date V isits Requested Visits Authorized [id number] Closed Specialty Service Requested 05/10/2018 05/10/2019 1 1 Reason for Visit * Reason Comments Follow-up Encounter Details Date Type Department Care Team (Late st Contact Info) Description 05/10/2018 2:45 PM EST Office Visit Hematology and Oncology at [facility] [place] [address] Ricky Lowry MD Malignant neoplasm [...] ??Excision with image-guided localization ?Lymph Node Sampling: ??[place] lymph node(s) ?Specimen Laterality: ??Left Tumor ?Histologic [...] ??DCIS not present in specimen Lymph Nodes ?[place] Lymph Nodes: [place] lymph node biopsy performed ?Number of [place] Nodes Examined: ??3 ?Number of Lymph Node(s) [...] Spinal stenosis > A Fib. Cardiology at [facility]. Most recent DEXA scan was last year at [facility]. There is no history [...] is planned for later this week (at [facility]). No new problems with VELEZ, diplopia, cough, [...] chemotherapy. TACHO. Renewal of anastrazole sent. Given [facility] brochure to share with cousins. All questions [...] BMD measurements and plots are available in [employer] under the imaging tab. Paper copies will be sent to providers without [employer] access. If you have received this report without the data sheet and do not have access to [employer], please contact [facility]iology [facility] at [phone] Thursday thru Thursday 8am-4pm. Thank you for [...] BMD measurements and plots are available in [employer] the imaging tab. Paper copies will be sent to providers without [employer] access.If you have received this report without the data sheet and do not haveaccess to [employer], please contact [facility] at [phone] Thursday thruFriday 8am-4pm. Thank you for letting us participate in the care of this patient. Forquestions regarding this report, please contact the number below. Electronically signed by: Khushi Hughes [facility] ([phone]),at 11/10/2018 10:55 AM Ricky Lowry MD IMG [...] of neck of femur, unspecified laterality 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 Use of aromatase inhibitors documented in this encounter Care Teams Floor Service Worker Spring Relationship Specialty Start Date End Date Ana Her MD [address] [place] [address] PCP - General 07/29/13 documented as of this encounter
--- OUTSIDE RECORDS SUMMARY | 2024-05-11 11:31 | XMS_ITS | Encounter Summary ---
[place] [address] Care Team Providers Care Leacher Name Role Phone Ana Her MD Primary Care Provider [phone] Reason for Visit * Auth/Cert Specialty Diagnoses / Procedures Referred By Christiano hackett Referred To Contact Diagnoses S/P repair of paraesophageal hernia Post-Op monitoring Procedures PRO LAPARSCOPY REPAIR PARAESOPHAGEAL HERNIA INCL FUNDOPLASTY W/O MESH LAPAROSCOPIC PARAESOPHAGEAL HERNIA REPAIR W/FUNDOPLASTY, W/O MESH (WRVU 26.6) MODIFIER TOUPET FUNDOPLASTY Laura Will MD [facility] [place] [address] [facility] Referral ID Status Reason Start Date Expiration Date Visits Re quested Visits Authorized [id number] 1 1 Encounter Details Date Type Department Care Team (Late st Contact Info) Description 03/05/2022 1:58 PM EDT Anesthesia [place] [address] Alisa Naqvi MD [facility] DR [place]ESTHES[place] [address] Alessia Ramirez [place] [address] Anesthesia Record Procedure Summary Procedure Name Responsible [...] Procedure Summary Date: 03/05/22 Room / Location: [address] MAIN OR Anesthesia Start: 8 Anesthesia Stop: 1823 Procedures: LAPAROSCOPIC PARAESOPHAGEAL HERNIA REPAIR W/FUNDOPLASTY, W/O MESH (WRVU 26.6) (N/A Abdomen) MODIFIER TOUPET FUNDOPLASTY (N/A Abdomen) Diagnosis: (Paraesophageal Hernia) Surgeons: Laura Will MD Responsible Provider: Alisa Naqvi MD Anesthesia Type: general ASA Status: 3 All Anesthesia Providers: Anesthesiologist: Brayan Hubbard MD; Alisa Naqvi MD; Dario Franco MD Shoe Patternmaker: Mo Vance DO Vitals Value Taken Time BP 125/75 03/05/22 1821 Temp Pulse 77 03/05/22 1823 Resp 18 03/05/22 1823 SpO2 100 % 03/05/22 182 Pain Level Vitals shown include unvalidated device data. Patient Location: PACU/[facility] Level of Consciousness: Awake and Alert [...] of left breast of female, estrogen receptor kywouqhz00/25/2017 ??? Bicuspid aortic valve 06/10/2016 ??? Dyspnea [...] 6.43) performed by Malika Chen MD at [facility] MAIN OR ??? PRO INTRAOP SENTINEL LYMPH ID W/DYE INJECTION Left 03/30/2017 INTRAOPERATIVE ID (MAPPING) SENTINEL LYMPH NODE,INCLUDES INJECTION (WRVU 2.5) performed by Malika Chen MD at [facility] MAIN OR ??? PRO MASTECTOMY PARTIAL Left 03/30/2017 MASTECTOMY PARTIAL (WRVU 10.13) performed by Malika Chen MD at [facility] MAIN OR ??? PRO UPPER GI ENDOSCOPY, DIAGNOSTIC N/A 01/08/2022 EGD, UPPER GI ENDOSCOPY performed by Laura Will MD at [facility] MAIN OR Social History Tobacco Use [...] 45%. Wall motion normal. ?? Echo 06/19/21 ([facility]): normal biventricular size and function, symmetric [...] PONV ppx Mo Shreyas DO Pinky 03/04/2022 Collector Of Internal Revenue Pager #[phone] Region - Other Informed Consent: Anesthetic plan [...] 45%. Wall motion normal. ?? Echo 06/19/21 ([facility] General): normal biventricular size and function, [...] 1 view ?? Followed by cardiology at [facility], notes under Care Everywhere. Last seen [...] mg documented in this encounter Care Teams Leacher Relationship Specialty Start Date End Date Ana Her MD Geovany [address] [facility] 1 [place] [address] PCP - General 07/29/13 documented as of this encounter
--- OUTSIDE RECORDS SUMMARY | 2024-05-11 11:31 | XMS_ITS | Encounter Summary ---
[place] [address] Care Team Providers Care Nail Mill Worker Name Role Phone Ana Her MD Primary Care Provider [phone] Reason for Visit * Reason Comments Follow-up Encounter Details Date Type Department Care Team (Late st Contact Info) Description 05/22/2020 11:40 AM EST Office Visit [place] [address] Jeanine Lobato APRN [facility] [place] [address] Encounter for follow-up surveillance of breast cancer; [...] was obtained which revealed IDC which is ER/GA positive, Her2 negative. Alma Delia opted against [...] ??Excision with image-guided localization ?Lymph Node Sampling: ??[place] lymph node(s) ?Specimen Laterality: ??Left Tumor ?Histologic [...] ??DCIS not present in specimen Lymph Nodes ?[place] Lymph Nodes: [place] lymph node biopsy performed ?Number of [place] Nodes Examined: ??3 ?Number of Lymph Node(s) [...] herex- speak almost daily. [place] [...] situation. Results: Imaging performed (bilateral mammogram) at [facility] today shows no evidence of malignancy, BIRADS [...] available at [employer] ([employer]) and [employer]. All questions were answered to the patient's satisfaction and they state understanding and agreement with today's treatment plan. They are encouraged to follow up sooner if they develop any new or concerning symptoms. Jeanine Lobato APRN Surgical Oncology P [phone] F [phone] [facility] documented in this encounter Plan [...] questions please contact the health career services director that requested your imaging first. ? Electronically signed by: Digna Noel MD, [facility] ([phone]), at 06/11/2021 9:20 AM Jeanine Lobato APRN [...] mammogram documented in this encounter Care Teams Nail Mill Worker Relationship Specialty Start Date End Date Ana Her MD [facility] [address] [place] [address] PCP - General 07/29/13 documented as of this encounter
--- OUTSIDE RECORDS SUMMARY | 2024-05-11 11:31 | XMS_ITS | Encounter Summary ---
[place] [address] Care Team Providers Care Train Gate Attendant Name Role Phone Ana Her MD Primary Care Provider [phone] Encounter Details Date Type Department Care Team (Late st Contact Info) Description 01/08/2022 7:30 AM EDT - 01/08/2022 8:40 AM EDT Surgery [place] [address] Laura Park MD [facility] [place] [address] EGD, UPPER GI ENDOSCOPY (WRVU 2.09) Social [...] a nurse in the Thoracic Clinic at [phone]. After hours or on weekends or holidays please call: [phone] and ask to speak to the Thoracic Physician refrigeration unit repairer. Diet: You should follow a clear liquid [...] - 5pm): General Surgery and Bariatric Surgery [phone] Bariatric Surgeons: Drs. Park and John [phone] Associate School Psychologist: [phone] Dietitians: [phone] Outside of regular business hours, including weekends and holidays: Ask for General Surgery resident refrigeration unit repairer [phone] Please note, this call will be answered [...] of left breast of female, estrogen receptor vnqbcdbrB45.512, Z17.0 ??? Anemia D64.9 ??? Aortic valve [...] at [facility] MAIN OR ?? Cholecystectomy ?? [...] MD - 01/08/2022 7:48 AM EDT [facility] Operative Note Patient Name: Digna Olson : [id number] MR#: [id number] Case Date: 01/08/2022 Surgeon: Surgeon(s) and Role: [...] Info Order Time SPECIMEN TO PATHOLOGY Gastric Van Zandt for H Pylori Hiatal hernia Gastric [place] for H Pylori excision 01/08/2022 8:15 AM [...] 8:14 AM EDT Upper GI Endoscopy, Diagnostic (50571) Yes 01/08/2022 7:40 AM EDT Hiatal hernia POCT GLUCOSE Routine 01/08/2022 6:33 AM EDT documented in this encounter Results * Specimen to Pathology (01/08/2022 8:15 AM EDT) AP Specimen 01/08/2022 8:15 AM EDT 01/08/2022 8:15 AM EDT Narrative [facility] - 01/08/2022 8:15 AM EDT Specimen requisition ordered. ??Separate Pathology report to follow Laura Park MD PATHOLOGY/CYTOLOGY ORDERABLES [facility] [place] [address] * Surgical Pathology Report (01/08/2022 8:14 AM EDT) Final Diagnosis [id number] ? Location: SDP; SD36; A The signing pathologist has (i) examined the relevant preparation(s) for the specimen(s) and (ii) rendered or confirmed the diagnosis(es). . ?Surgical Pathology DIAGNOSIS A - Gastric ??Antrum for H Pylori, excision: - ??Antrum-type mucosa with reactive gastropathy. Electronically signed by: ?Umang Raymundo MD Verified: ??01/09/2022 16:36 ??Pathologist Performed at: ??-[facility] Dept. of Pathology, [place], [place] SPECIMEN(S) SUBMITTED A - Gastric ??Antrum for H Pylori, excision (1) CLINICAL INFORMATION Hiatal hernia SPECIMEN PROCESSING A - Labeled/Fixativ e: Gastric antrum for H. pylori, formalin. Quantity/Size: Single, 0.3 cm. Tissue Description: Soft, pink tissue. Sections/Proces sing: Submitted en toto ??in 1 cassette labeled A1. ??sns 01/09/2022 4:36 PM EDT [facility] GI Biopsy 01/08/2022 8:14 AM EDT 01/08/2022 8:14 AM EDT Laura Park MD PATHOLOGY/CYTOLOGY ORDERABLES Performing Organization Address City/State/[facility] Co de Phone Number [facility] [place] [address] * POCT Glucose (01/08/2022 6:33 AM EDT) Glucose, POC 120 65 - 199 mg/dL [facility] Comment: Supplemental ranges: <140 mg/dL before meals <180 mg/dL all other times of the day Blood 01/08/2022 6:33 AM EDT 01/08/2022 6:33 AM EDT Laura Park MD POINT [place] [address] documented in this encounter Visit Diagnoses Not on filedocumented in this encounter Active and Recently Administered Medications Care Teams Train Gate Attendant Relationship Specialty Start Date End Date Ana Her MD [address] [facility] [address] [place] [address] PCP - General 07/29/13 documented as of this encounter
--- OUTSIDE RECORDS SUMMARY | 2024-05-11 11:31 | XMS_ITS | Encounter Summary ---
[place] [address] Care Team Providers Care Weight Training Instructor Name Role Phone Ana Her MD Primary Care Provider [phone] Encounter Details Date Type Department Care Team (Late st Contact Info) Description 12/17/2021 Telephone [place] [address] Roma Estrada RN Social History Tobacco Use [...] on filedocumented in this encounter Care Teams Weight Training Instructor Relationship Specialty Start Date End Date Ana Her MD [address] [place] [address] PCP - General 07/29/13 documented as of this encounter
--- OUTSIDE RECORDS SUMMARY | 2024-05-11 11:31 | XMS_ITS | Encounter Summary ---
Author Organization [facility] [place] [address] Care Team Providers Care Driver Retraining Instructor Name Role Phone Ana Her MD Primary Care Provider [phone] 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 * Diagnostic Test (Routine) [...] Ricky Lowry MD [facility] HEMATOLOGY/[place] [address] [facility] Rad Xray [address] [place] [address] [place] [address] Referral ID Status Reason Start Date Expiration Date V isits Requested Visits Authorized [id number] Closed Specialty Service Requested 05/10/2018 05/10/2019 1 1 Reason for Visit * Diagnostic Test (Routine) - Closed Specialty Diagnoses / Procedures Referred By Contac t Referred To Contact Radiology Diagnoses Malignant neoplasm of lower-outer quadrant of left breast of female, estrogen receptor positive Osteopenia of neck of femur, unspecified laterality 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 Procedures DXA Central-Spine, Hip, And/Or Whole Body (Generic) Ricky Lowry MD [facility] HEMATOLOGY/[place] [address] [facility] Rad Xray [address] [place] [address] Dr [place], [place] [address] Referral ID Status Reason Start Date Expiration Date V isits Requested Visits Authorized [id number] Closed Specialty Service Requested 05/10/2018 05/10/2019 1 1 Encounter Details Date Type Department Care Team (Latest Contact Info) Description 11/09/2018 1:03 PM EDT - 11/09/2018 11:59 PM EDT Hospital Encounter XRay at [address] [place] [address] Ricky Lowry MD Malignant neoplasm of lower-outer quadrant of left breast of female, estrogen receptor positive; Osteopenia of neck of femur, unspecified laterality; care home current 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 inhibitor Discharge Disposition: [...] care home current 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 inhibitor documented in [...] BMD measurements and plots are available in [employer] under the imaging tab. Paper copies will be sent to providers without [employer] access. If you have received this report without the data sheet and do not have access to [employer], please contact Radiology Reading Recovery Teacher at [phone] Thursday thru Thursday 8am-4pm. Thank you for [...] BMD measurements and plots are available in [employer] the imaging tab. Paper copies will be sent to providers without [employer] access.If you have received this report without the data sheet and do not haveaccess to [employer], please contact Radiology Reading Recovery Teacher at [phone] Thursday thruFriday 8am-4pm. Thank you for letting us participate in the care of this patient. Forquestions regarding this report, please contact the number below. Electronically signed by: Khushi Hughes [facility] [place] ([phone]),at 11/10/2018 10:55 AM Ricky Lowry MD IMG DEXA ORDERABLES documented in this encounter Visit Diagnoses Diagnosis Malignant neoplasm of lower-outer quadrant of left breast of female, estrogen receptor positive Osteopenia of neck of femur, unspecified laterality care home current 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 inhibitor Use of aromatase inhibitors documented in this encounter Care Teams Driver Retraining Instructor Relationship Specialty Start Date End Date Ana Her MD [facility] [address] [email or web address] [address] [place] [address] PCP - General 07/29/13 documented as of this encounter
--- OUTSIDE RECORDS SUMMARY | 2024-05-11 11:31 | XMS_ITS | Encounter Summary ---
Author Organization [facility] [place] [address] Care Team Providers Care Commercial Front Load Operator Name Role Phone Ana Her MD Primary Care Provider [phone] Encounter Details Date Type Department Care Team (Late st Contact Info) Description 09/03/2021 Ancillary Procedure Radiology Library at [facility] [place] [address] Laura Will MD [facility] [place] [address] Social History Tobacco Use Types Packs/Day Years [...] CT Chest (09/03/2021 12:00 AM EDT) Narrative [facility] - 11/28/2021 1:22 PM EDT This exam is auto-finalizing. It's purpose is for storage only. Laura Will MD IMG FILM LIBRARY OR DERABLES Performing Organization Address City/State/[facility] Co de Phone Number [place], [place] documented in this encounter Visit Diagnoses Not on filedocumented in this encounter Care Teams Commercial Front Load Operator Relationship Specialty Start Date End Date Ana Her MD [address] [facility] 1 [place] [address] PCP - General 07/29/13 documented as of this encounter
--- OUTSIDE RECORDS SUMMARY | 2024-05-11 11:31 | XMS_ITS | Encounter Summary ---
Author Organization [facility] [place] [address] Care Team Providers Care Violin Teacher Name Role Phone Ana Her MD Primary Care Provider [phone] Encounter Details Date Type Department Care Team (Latest Contact Info) Description 05/22/2020 10:46 AM EST - 05/22/2020 11:59 PM [facility] Hospital Encounter Mammography/[place] [address] Jeanine Lobato APRN [facility] [place] [address] Malignant neoplasm of lower-outer quadrant of left [...] mammogram documented in this encounter Care Teams Violin Teacher Relationship Specialty Start Date End Date Ana Her MD [facility] [address] [facility] 1 [place] [address] PCP - General 07/29/13 documented as of this encounter
--- OUTSIDE RECORDS SUMMARY | 2024-05-11 11:32 | XMS_ITS | Encounter Summary ---
[place] [address] Care Team Providers Care Recruiting Consultant Name Role Phone Ana Her MD Primary Care Provider [phone] Encounter Details Date Type Department Care Team (Late st Contact Info) Description 03/30/2017 11:19 AM EST Anesthesia Event [place] [address] Bridgette Mclaughlin MD Collins, Sarah J, ADVICE CLERK [address] [place] [address] Anesthesia Record Procedure Summary Procedure Name Responsible [...] 0815; median cubital vein (antecubital fossa), right; hhag-qjw-[id number] catheter system; 20 gauge, 1 in length; [...] Bridgette Mclaughlin - 03/30/2017 2:13 PM EST [facility] Department of Anesthesiology Post-procedure Note Patient: Digna Olson Procedure Summary Date Anesthesia Start Anesthesia Stop Room / Location 03/30/17 1119 1239 [facility] OR 24 / MH MAIN OR Procedure [...] All Anesthesia Providers: Anesthesiologist: Bridgette Mclaughlin MD ADVICE CLERK: Laura Koo CRNA Most Recent Vitals: 03/30/17 [...] risks discussed with patient. Plan discussed with ADVICE CLERK. [facility] Staff Note documented in this encounter [...] r documented in this encounter Care Teams Recruiting Consultant Relationship Specialty Start Date End Date Ana Her MD [facility] [address] [place] [address] PCP - General 07/29/13 documented as of this encounter
--- OUTSIDE RECORDS SUMMARY | 2024-05-11 11:32 | XMS_ITS | Encounter Summary ---
[place] [address] Care Team Providers Care Silk Spreader Name Role Phone Ana Her MD Primary Care Provider [phone] 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 * Surgical (Routine) - Closed Specialty Diagnoses / Procedures Referred By Christiano hackett Referred To Contact Orthopaedics Diagnoses Lumbar spinal stenosis Michelle Hurtado APRN [facility] [place] [address] [facility] [place] [address] [address] Referral ID Status Reason Start Date Expiration Date V isits Requested Visits Authorized [id number] Closed Consult, Test & Treat 09/08/2014 09/08/2015 3 3 Encounter Details Date Type Department Care Team (Late st Contact Info) Description 09/08/2014 Orders [place] [address] Michelle Hurtado ITINERANT TEACHER ASSISTANT [facility] [place] [address] Lumbar spinal stenosis Social History Tobacco Use [...] claudication documented in this encounter Care Teams Silk Spreader Relationship Specialty Start Date End Date Ana Her MD [facility] [address] [facility] 1 [place] [address] PCP - General 07/29/13 documented as of this encounter
--- OUTSIDE RECORDS SUMMARY | 2024-05-11 11:32 | XMS_ITS | Encounter Summary ---
Author Organization [facility] [place] [address] Care Team Providers Care Cement Sprayer Helper Name Role Phone Ana Her MD Primary Care Provider [phone] Encounter Details Date Type Department Care Team (Latest Contact Info) Description 02/25/2017 1:31 PM EDT Hospital Encounter [place] [address] Maryam Yee MD [facility] [place] [address] Abnormal mammogram Discharge Disposition: Home Social History [...] unspecified documented in this encounter Care Teams Cement Sprayer Helper Relationship Specialty Start Date End Date Ana Her MD [address] [place] [address] PCP - General 07/29/13 documented as of this encounter
--- OUTSIDE RECORDS SUMMARY | 2024-05-11 11:32 | XMS_ITS | Encounter Summary ---
[place] [address] Care Team Providers Care Classifier Name Role Phone Ana Her MD Primary Care Provider [phone] Reason for Visit * Reason Comments Schedule Office Case Encounter Details Date Type Department Care Team (Late st Contact Info) Description 04/23/2017 2:00 PM EST Office Visit Hematology [place] [address] Ricky Lowry MD Malignant neoplasm of lower-outer [...] cancer cells with immunostaining) Stain intensity: Strong [place] immunoreactivity: Positive (>90% cancer cells with immunostaining) [...] ??Excision with image-guided localization ?Lymph Node Sampling: ??[place] lymph node(s) ?Specimen Laterality: ??Left Tumor ?Histologic [...] ??DCIS not present in specimen Lymph Nodes ?[place] Lymph Nodes: [place] lymph node biopsy performed ?Number of [place] Nodes Examined: ??3 ?Number of Lymph Node(s) [...] DEXA scan was in this year at [facility]. There is no history of thromboembolic events. Soc Hx/Fam Hx: She lives alone. Son lives nearby. Family history is notable for a maternal first cousin with breast cancer diagnosed in her 40s. In addition that cousin's sister has had pancreatic cancer as did a brother. These cousins are related to Ms. Olsno via a maternal uncle. Maternal grandfather had [...] positive documented in this encounter Care Teams Classifier Relationship Specialty Start Date End Date Ana Her MD [address] [place] [address] PCP - General 07/29/13 documented as of this encounter
--- OUTSIDE RECORDS SUMMARY | 2024-05-11 11:32 | XMS_ITS | Encounter Summary ---
[place] [address] Care Team Providers Care Movie Editor Name Role Phone Ana Her MD Primary Care Provider [phone] Encounter Details Date Type Department Care Team (Latest Contact Info) Description 03/30/2017 7:27 AM EST - 03/30/2017 1:37 PM EST Hospital Encounter [place] [phone] Brant Chen MD [facility] [place] [address] Discharge Disposition: Home Social History Tobacco Use [...] shower 24 hours Activity as tolerated Call [phone] with any questions Do not soak incision [...] Delia had a bone scan in [place] which was read as possible metastasis in the left tibia. Of note- she fractured this area recently. She has recovered well. ?? PMH HNT NIDDM not on meds Spinal stenosis Fractured left tibial plateau December, GERD ?? FH: Maternal first cousin with breast cancer Brother with rectal cancer Sister with PE ? SH: lives alone. Has good support from sisters who live in [place]. Non smoker. Has a son who lives [...] Chen MD - 03/30/2017 12:27 PM EST [facility] Operative Note Patient Name: Digna Olson : [id number] MR#: [id number] Case Date: 03/30/2017 Surgeon: Surgeon(s) and Role: [...] [place] [address]. Remaining count within the axilla was 1982. [...] Chen MD PATHOLOGY/CYTOLOGY ORDERABLES [facility] [place] [address] * Specimen to Pathology (surgical or derm) (03/30/2017 12:08 PM EST) AP Specimen 03/30/2017 12:0 8 PM EST 03/30/2017 12:08 PM EST Narrative [facility] - 03/30/2017 12:08 PM EST Specimen requisition ordered. ??Separate Pathology report to follow Brant Chen MD PATHOLOGY/CYTOLOGY ORDERABLES Performing Organization Address [facility] [place] [place] [address] * Specimen to Pathology (surgical or derm) (03/30/2017 12:00 PM EST) AP Specimen 03/30/2017 12:0 0 PM EST 03/30/2017 12:00 PM EST Narrative [facility] - 03/30/2017 12:00 PM EST Specimen requisition ordered. ??Separate Pathology report to follow Brant Chen MD PATHOLOGY/CYTOLOGY ORDERABLES Performing Organization Address [facility] Co de Phone Number [place] [phone] * Specimen to Pathology (surgical or derm) (03/30/2017 11:51 AM EST) AP Specimen 03/30/2017 11:5 1 AM EST 03/30/2017 11:51 AM EST Narrative [facility] - 03/30/2017 11:51 AM EST Specimen requisition ordered. ??Separate Pathology report to follow Brant Chen MD PATHOLOGY/CYTOLOGY ORDERABLES Performing Organization Address [facility] [place] [address] * Surgical Pathology Report (03/30/2017 11:50 AM EST) Final Diagnosis [id number] ? Location: [facility]; [facility]; A The signing pathologist has (i) examined the relevant preparation(s) for the specimen(s) and (ii) rendered or confirmed the diagnosis(es). . ?Surgical Pathology DIAGNOSIS A,B - See Synoptic C - Left breast, Deep/lateral margin re-excision - ?Benign fatty breast tissue. D - Left breast, Superficial margin re-excision - ?Benign fatty breast tissue. See Note Note - [place] ink (indicating additional cranial margin) is also present on this superficial margin re-excision. ---- Specimen Parts: ?? A - Left axilliary sentinel node B - Left breast partial mastectomy Specimen ? Procedure: ??Excision with image-guided localization ? Lymph Node Sampling: ?? [place] lymph node(s) ? Specimen Laterality: ?? Left [...] not present in specimen Lymph Nodes ? [place] Lymph Nodes: ?? [place] lymph node biopsy performed ? Number of [place] Nodes Examined: ?3 ? Number of Lymph [...] Chávez DO Verified: ??04/01/2017 ?Pathologist Performed at: ??-[facility] Dept. of Pathology, [place], [place] CLINICAL INFORMATION Specimen Submitted: A - [...] and there are ??no close margins. per [facility] Radiology . Specimen Description: According to the established protocol the ink designations are red (medial), yellow (lateral), orange (cranial), green (caudal), black (deep) and blue (superficial). Tissue Sections: The specimen is serially sectioned perpendicular to the long axis from lateral to medial into X slices, each averaging 0.45 cm in thickness. LESION Description: Biopsy site. Size: 0.8 x 0.4 x 0.4 cm. Color: Rosalia and yellow. Consistency: Soft. Location: Slices III and IV. Nearest Margin: 0.6 cm to the cranial margin. Other Margins: 0.8 cm to the deep margin, 1.0 cm to the superficial margin, ? > 2 cm from all other margins. OTHER Parenchyma: Predominately fatty with scant fibrous tissue. Wire/Clip: Biopsy marker clip identified within slice IV. SECTIONS/PROCESSI NG: (1) office services representative slice I, lateral margin; (2) slice III, lesion to cranial margin; (3-5) remainder of slice III; (6) slice IV, lesion to cranial margin (clip); (7-8) remainder of slice IV; (9) office services representative slice V; (10) office services representative slice X, medial margin. (R10) Ischemic [...] sectioned. (T3) ??sns 04/01/2017 9:38 AM EST [facility] BREAST STRUCTURE / Unknown 03/30/2017 11:50 AM EST 03/30/2017 11:50 AM EST BREAST STRUCTURE / Unknown 03/30/2017 11:50 AM EST 03/30/2017 11:50 AM EST BREAST STRUCTURE / Unknown 03/30/2017 11:50 AM EST 03/30/2017 11:50 AM EST BREAST STRUCTURE / Unknown 03/30/2017 11:50 AM EST 03/30/2017 11:50 AM EST Brant Chen MD PATHOLOGY/CYTOLOGY ORDERABLES [facility] [place] [address] * Mammo Direct Digital Left (03/30/2017 9:15 [...] Routine documented in this encounter Care Teams Movie Editor Relationship Specialty Start Date End Date Ana Her MD [address] [place] [address] PCP - General 07/29/13 documented as of this encounter
--- OUTSIDE RECORDS SUMMARY | 2024-05-11 11:32 | XMS_ITS | Encounter Summary ---
[place] [address] Care Team Providers Care Acute Care Nurse Name Role Phone Ana Her MD Primary Care Provider [phone] Reason for Visit * Reason Comments Low Back Pain Bilateral Hip Pain when standing or wal jaquelin Encounter Details Date Type Department Care Team (Late st Contact Info) Description 09/12/2014 11:20 AM EDT Office [place] [phone] Kris Benoit MD Neurogenic claudication due to [...] pain free. Lumbar MRI from 08/16/2014 from [facility] is notable for multilevel degenerative changes L2-L3, L3-L4, L4-L5, L5-S1. At L2-L3, she has [id number]-[id number] spinal stenosis, but she has no leg [...] claudication documented in this encounter Care Teams Acute Care Nurse Relationship Specialty Start Date End Date Ana Her MD [address] [place] [address] PCP - General 07/29/13 documented as of this encounter
--- OUTSIDE RECORDS SUMMARY | 2024-05-11 11:32 | XMS_ITS | Encounter Summary ---
Author Organization [facility] [place] [address] Care Team Providers Care Court Recording Monitor Name Role Phone Ana Her MD Primary Care Provider [phone] Encounter Details Date Type Department Care Team (Late st Contact Info) Description 02/27/2017 Orders [place] [address] Malika Chen MD [facility] [place] [address] Malignant neoplasm of left breast in female, [...] EDT) Glucose 139 65 - 199 mg/dL [facility] Comment:Diabetes: >=200 mg/d L plus symptoms Blood Urea Nitrogen 20(H) 8 - 18 mg/dL [facility] [...] - 107 mmol/L [facility] Carbon Dioxide 26 22 - 31 mmol/L [facility] Anion Gap 14 5 - 15 mmol/L [facility] Calcium 9.3 8.5 - 10.5 mg/dL [facility] Protein, Total 6.9 6.1 - 8.0 gm/dL [facility] Albumin 4.2 3.2 - 5.2 gm/dL [facility] Aspartate Aminotransferase 17 0 - 30 unit/L [facility] Alanine Aminotransferase 16 0 - 30 unit/L [facility] Alkaline Phosphatase 75 40 - 104 unit/L [facility] Bilirubin, Total 0.5 0.2 - 1.3 mg/dL [facility] Est Glomerular Filtration Rate 58(L) >=60 [facility] Comment: The reported eGFR should be multiplied by 1.2 for patients. The MDRD is not an appropriate measure of renal function for patients with body mass extremes or in patients with acute kidney failure. http://BNI Video.untapt/DHnkdep http://BNI Video.untapt/DHMCnkf Blood specimen (specimen) 03/03/2017 7:50 AM EDT 03/03/2017 8:03 AM EDT Narrative Resulting Agency Comment Spec In Lab Malika Chen MD CHEMISTRY ORDERABLE S [facility] [place] [address] documented in this encounter Visit Diagnoses Diagnosis Malignant neoplasm of left breast in female, estrogen receptor positive, unspecified site of breast documented in this encounter Care Teams Court Recording Monitor Relationship Specialty Start Date End Date Ana Her MD [address] [facility] 1 [place] [address] PCP - General 07/29/13 documented as of this encounter
--- OUTSIDE RECORDS SUMMARY | 2024-05-11 11:32 | XMS_ITS | Encounter Summary ---
Author Organization [facility] [place] [address] Care Team Providers Care Brake Repairer Air Name Role Phone Ana Her MD Primary Care Provider [phone] Encounter Details Date Type Department Care Team (Latest Contact Info) Description 02/25/2017 1:32 PM EDT - 02/25/2017 1:35 PM EDT Hospital [place] [phone] Maryam Yee MD [facility] [place] [address] Abnormal mammogram Discharge Disposition: Home Social History [...] PATHOLOGY/CYTOLOGY O [facility] [place] [address] documented in this encounter Visit Diagnoses Diagnosis [...] mg documented in this encounter Care Teams Brake Repairer Air Relationship Specialty Start Date End Date Ana Her MD [address] [place] [address] PCP - General 07/29/13 documented as of this encounter
--- OUTSIDE RECORDS SUMMARY | 2024-05-11 11:32 | XMS_ITS | Encounter Summary ---
Author Organization [facility] [place] [address] Care Team Providers Care Door Machine Operator Name Role Phone Ana Her MD Primary Care Provider [phone] Encounter Details Date Type Department Care Team (Latest Contact Info) Description 02/25/2017 1:36 PM EDT - 02/25/2017 2:58 PM EDT Hospital En[place] [phone] Maryam Yee MD [facility] [place] [place] [address] Abnormal mammogram Discharge Disposition: Home Social History [...] unspecified documented in this encounter Care Teams Door Machine Operator Relationship Specialty Start Date End Date Ana Her MD [address] [place] [address] [address] [place] [address] PCP - General 07/29/13 documented as of this encounter
--- OUTSIDE RECORDS SUMMARY | 2024-05-11 11:32 | XMS_ITS | Encounter Summary ---
Author Organization [facility] [place] [address] Care Team Providers Care Hydro Plant Technician Name Role Phone Ana Her MD Primary Care Provider [phone] Reason for Visit * Reason Comments Radiation Consult * Consultation (Routine) - Closed Specialty Diagnoses / Procedures Referred By Christiano hackett Referred To Contact Radiation Oncology Diagnoses Breast cancer Malika Chen MD [facility] [place] [address] Stj Rad Onc Office [address] [place] [phone] Referral ID Status Reason Start Date Expiration Date Visits Re quested Visits Authorized [id number] Closed 03/17/2017 03/17/2018 1 1 Encounter Details Date Type Department Care Team (Late st Contact Info) Description 04/13/2017 10:00 AM EST Office Visit Radiation Oncology at [address] [address] Faye Velez MD [facility] [place] [address] Malignant neoplasm of left female breast, unspecified [...] cm from nipple. 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 03/03/[address] [...] she is being evaluated for afib @ [facility] W. 04/15/17; has [...] [facility] ??? 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 Late/prison side effects to breast discussed include: Treated [...] breast documented in this encounter Care Teams Hydro Plant Technician Relationship Specialty Start Date End Date Ana Her MD [address] [place] [address] PCP - General 07/29/13 documented as of this encounter
--- OUTSIDE RECORDS SUMMARY | 2024-05-11 11:32 | XMS_ITS | Encounter Summary ---
[place] [address] Care Team Providers Care Costume Seamstress Name Role Phone Ana Her MD Primary Care Provider [phone] Reason for Visit * Reason Comments Low Back Pain Encounter Details Date Type Department Care Team (Late st Contact Info) Description 08/30/2014 8:35 AM EDT Office [place] [phone] Michelle Hurtado APRN [facility] [address] Neurogenic claudication due to lumbar spinal stenosis [...] this encounter Progress Notes * Michelle Hurtado, OPERATIONS OFFICER [employer] - 08/30/2014 9:37 AM EDT CHIEF COMPLAINT: [...] activity. 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 MEDICATIONS & [...] care of this patient. Michelle Hurtado MS, OPERATIONS OFFICER [employer], [place] RADIO OPERATOR-C [facility] documented in this encounter Plan of Treatment Not on file documented as of this encounter Visit Diagnoses Diagnosis Neurogenic claudication due to lumbar spinal stenosis Spinal stenosis, lumbar region, with neurogenic claudication documented in this encounter Care Teams Costume Seamstress Relationship Specialty Start Date End Date Ana Her MD [address] [place] [address] PCP - General 07/29/13 documented as of this encounter
--- OUTSIDE RECORDS SUMMARY | 2024-05-11 11:32 | XMS_ITS | Encounter Summary ---
Author Organization [facility] [place] [address] Care Team Providers Care Security Infrastructure Engineer Name Role Phone Ana Her MD Primary Care Provider [phone] Encounter Details Date Type Department Care Team (Latest Contact Info) Description 03/30/2017 8:30 AM [facility] Hospital [place] [address] Malika Chen MD [facility] [place] [address] Malignant neoplasm of upper-outer quadrant of left [...] documented in this encounter Results * Mammo [place] Node Injection (03/30/2017 9:01 AM EST) Anatomical [...] mCi documented in this encounter Care Teams Security Infrastructure Engineer Relationship Specialty Start Date End Date Ana Her MD [address] [place] [address] PCP - General 07/29/13 documented as of this encounter
--- OUTSIDE RECORDS SUMMARY | 2024-05-11 11:32 | XMS_ITS | Encounter Summary ---
Author Organization [facility] [place] [address] Care Team Providers Care Retail Sales Representative Name Role Phone Ana Her MD Primary Care Provider [phone] Encounter Details Date Type Department Care Team (Latest Contact Info) Description 02/25/2017 2:59 PM EDT - 02/25/2017 11:59 PM EDT Hospital Encounter [place] [phone] Enzo Burkett MD Abnormal finding on breast [...] associated with invasive carcinoma. Enzo Burkett MD [facility] MAMMO ORDERABLES * Surgical Pathology Report (02/25/2017 3:01 PM EDT) Final Diagnosis [id number] ? Location: 3L The signing pathologist has [...] FISH. ??Direct analysis was performed using the Vizsafe Kit. ??Slide adequacy and signal enumeration were [...] factor receptor 2 testing in breast cancer: [place] [employer] On[employer]/College of [place] [employer] clinical practice guideline update. J Clin Oncol. 2013 Nov . Reviewed by: Kyara Logan MD Compensation Business Partner, Molecular Pathology _ Electronically signed by: ??Epifanio Serra MD Verified: ??03/04/2017 ?Pathologist Performed at: ??-[facility] Dept. of Pathology, [place], [place] ? Addendum ADDENDUM DISCUSSION Immunohistochemist ry Studies Specimen: Left breast, core needle biopsy (A1) ER immunoreactivity: Positive ( ??>90% cancer cells with immunostaining) Stain intensity: Strong . ADDENDUM DISCUSSION AL immunoreactivity: Positive ( ??>90% cancer cells with [...] The assays were performed according to the road monkey ' s instructions using Anti-ER (SP1) and Anti-AL (16) antibodies. Electronically signed by: ??Epifanio Serra MD Verified: ??02/27/2017 ?Pathologist Performed at: ??-[facility] Dept. of Pathology, [place], [place] ?Surgical Pathology DIAGNOSIS Needle biopsies: ?Left breast Diagnosis: ?Invasive mucinous carcinoma (see Discussion) ?Intermediate grade, modified SBR score = 6 Microcalcification s: ??Few calcifications associated with invasive carcinoma Electronically signed by: ??Ponce MELTON, Epifanio Gamez Verified: ??02/26/2017 ?Pathologist Performed at: ??-[facility] Dept. of Pathology, [place], [place] DISCUSSION Studies for ER, AL, and HER2 have been ordered; results will [...] g: (T4) ??elian 03/04/2017 2:01 PM EDT [facility] BREAST STRUCTURE / Unknown 02/25/2017 3:01 PM EDT 02/25/2017 3:01 PM EDT Enzo Burkett MD PATHOLOGY/CYTOLOGY O RDERABLES [facility] [place] [address] documented in this encounter Visit Diagnoses Diagnosis Abnormal finding on breast imaging Other (abnormal) findings on radiological examination of breast documented in this encounter Care Teams Retail Sales Representative Relationship Specialty Start Date End Date Ana Her MD [address] [place] [address] PCP - General 07/29/13 documented as of this encounter
--- OUTSIDE RECORDS SUMMARY | 2024-05-11 11:32 | XMS_ITS | Encounter Summary ---
[place] [address] Care Team Providers Care Ribbon Hanking Machine Operator Name Role Phone Ana Her MD Primary Care Provider [phone] Encounter Details Date Type Department Care Team (Late st Contact Info) Description 05/19/2017 Telephone Hematology [place] [phone] Sandy Chapman Social History Tobacco Use Types [...] on filedocumented in this encounter Care Teams Ribbon Hanking Machine Operator Relationship Specialty Start Date End Date Ana Her MD [address] [place] [address] PCP - General 07/29/13 documented as of this encounter
--- OUTSIDE RECORDS SUMMARY | 2024-05-11 11:32 | XMS_ITS | Encounter Summary ---
[place] [address] Care Team Providers Care Fios Line Installer Name Role Phone Ana Her MD Primary Care Provider [phone] Encounter Details Date Type Department Care Team (Late st Contact Info) Description 04/05/2018 [place]phone [place] [phone] Adrianna Jones Social History Tobacco Use Types [...] Padgett. Patient advises she is admitted at [facility] for afib and is pending procedure etc. Patient will call to reschedule once she is discharged home. documented in this encounter Plan of Treatment Not on file documented as of this encounter Visit Diagnoses Not on filedocumented in this encounter Care Teams Fios Line Installer Relationship Specialty Start Date End Date Ana Her MD [address] [place] [address] PCP - General 07/29/13 documented as of this encounter
--- OUTSIDE RECORDS SUMMARY | 2024-05-11 11:32 | XMS_ITS | Encounter Summary ---
Author Organization [facility] [place] [address] Care Team Providers Care Core Baker Name Role Phone Ana Her MD Primary Care Provider [phone] Encounter Details Date Type Department Care Team (Late st Contact Info) Description 03/30/2017 Notes [place] [address] January Ward MSW Social History Tobacco Use [...] was recently diagnosed with invasive mucinous carcinoma. [facility] attempted to meet with pt in Same Day surgery this morning but she was still in radiology. I spoke with her ex-, Keith, who states she will be staying with him tondenise. Their granddaughters are traveling from [place] and plan to accompany pt to see her dental instructor at [facility] tomorrow. Pt has been followed by this physician for her cardiac problems. [facility] will continue to provide support and resources to pt. documented in this encounter Plan of Treatment Not on file documented as of this encounter Visit Diagnoses Not on filedocumented in this encounter Care Teams Core Baker Relationship Specialty Start Date End Date Ana Her MD [address] [facility] 1 [place] [address] PCP - General 07/29/13 documented as of this encounter
--- OUTSIDE RECORDS SUMMARY | 2024-05-11 11:32 | XMS_ITS | Encounter Summary ---
[place] [address] Care Team Providers Care Historical Manuscripts Curator Name Role Phone Ana Her MD Primary Care Provider [phone] Encounter Details Date Type Department Care Team (Late st Contact Info) Description 02/27/2017 Telephone Hematology [place] [phone] Argentina Sanchez RN Social History Tobacco Use [...] a 71 y.o. female with newly diagnosed ER/OR+/HER2 corey pending left breast invasive mucinous cancer (left breast U/S guided biopsy 02/25/2017 [facility] Delia sounds positive and has support. She will have someone accompany her to appointments. She appears to be coping well but is anxious to meet with a breast surgeon to determine a treatment plan. [place] Delia have a bone SPECT done 1-[address] [facility] and her doctor there questioned an [...] review (a link to the [facility] Early Stage Breast Cancer program). The [...] on filedocumented in this encounter Care Teams Historical Manuscripts Curator Relationship Specialty Start Date End Date Ana Her MD [address] [place] [address] PCP - General 07/29/13 documented as of this encounter
--- OUTSIDE RECORDS SUMMARY | 2024-05-11 11:32 | XMS_ITS | Encounter Summary ---
[place] [address] Care Team Providers Care Director Geophysical Laboratory Name Role Phone Ana Her MD Primary Care Provider [phone] Encounter Details Date Type Department Care Team (Late st Contact Info) Description 03/18/2017 Telephone [place] [phone] Bryanna Marsh RN Social History Tobacco Use [...] notes she had a colonoscopy done at [facility] and developed atrial fibrillation; she has been started on blood thinners. She was just discharged from the [facility] hospital, and called us to let [...] give Digna a call her number is [phone]. The below is from Dr. Chen visit with Digna. Assessment and Plan: ?? 71 yo female with radiographic stage I ER/LA+, HER2- IDC of the left breast. No [...] filedocumented in this encounter Care Teams Director Geophysical Laboratory Relationship Specialty Start Date End Date Ana Her MD [address] [place] [address] PCP - General 07/29/13 documented as of this encounter
--- OUTSIDE RECORDS SUMMARY | 2024-05-11 11:32 | XMS_ITS | Encounter Summary ---
Author Organization [facility] [place] [address] Care Team Providers Care Bridge Leverman Name Role Phone Ana Her MD Primary Care Provider [phone] Reason for Visit * Reason Comments Follow-up Encounter Details Date Type Department Care Team (Late st Contact Info) Description 10/23/2017 11:00 AM EDT Office Visit Hematology [place] [address] Mayra Page APRN [facility] [place] [address] Malignant neoplasm of lower-outer quadrant of left [...] this encounter Progress Notes * Mayra Page, PARAPLANNER - 10/23/2017 11:00 AM EDT Digna Olson [...] ??Excision with image-guided localization ?Lymph Node Sampling: ??Seymour lymph node(s) ?Specimen Laterality: ??Left Tumor ?Histologic [...] ??DCIS not present in specimen Lymph Nodes ?Seymour Lymph Nodes: Seymour lymph node biopsy performed ?Number of Seymour Nodes Examined: ??3 ?Number of Lymph Node(s) Examined (sentinel and nonsentinel): 3 ?Lymph Node Involvement: None identified Stage (pTNM) ?Pathological Stage: ?? pT1b pN0 PMH: Past Medical History: Diagnosis Date ??? Breast cancer ??? Fracture of tibia 12/2016 left tibial plateau ??? GERD (gastroesophageal reflux disease) ??? H/O non-insulin dependent diabetes mellitus ??? Spinal stenosis Most recent DEXA scan was 10/28/16 at [facility]. There is [...] positive documented in this encounter Care Teams Bridge Leverman Relationship Specialty Start Date End Date Ana Her MD [address] [place] [address] PCP - General 07/29/13 documented as of this encounter
--- OUTSIDE RECORDS SUMMARY | 2024-05-11 11:32 | XMS_ITS | Encounter Summary ---
Author Organization [facility] [place] [address] Care Team Providers Care Automotive Salesperson Name Role Phone Ana Her MD Primary Care Provider [phone] Encounter Details Date Type Department Care Team (Late st Contact Info) Description 03/19/2017 Telephone [place] [address] Malika Chen MD [facility] [place] [address] Social History Tobacco Use Types Packs/Day Years [...] no unexpected bleeding. Surgery is scheduled in [facility]. documented in this encounter Plan of Treatment Not on file documented as of this encounter Visit Diagnoses Not on filedocumented in this encounter Care Teams Automotive Salesperson Relationship Specialty Start Date End Date Ana Her MD [address] [facility] [place] [address] PCP - General 07/29/13 documented as of this encounter
--- OUTSIDE RECORDS SUMMARY | 2024-05-11 11:32 | XMS_ITS | Encounter Summary ---
Author Organization [facility] [place] [address] Care Team Providers Care Laundry Sorter Name Role Phone Ana Her MD Primary Care Provider [phone] Encounter Details Date Type Department Care Team (Late st Contact Info) Description 10/23/2017 9:43 AM EDT - 10/23/2017 11:59 PM EDT Hospital [place] [id number] Hiral Padgett, WENDY History of breast cancer [...] breast documented in this encounter Care Teams Laundry Sorter Relationship Specialty Start Date End Date Ana Her MD [address] [place] [address] PCP - General 07/29/13 documented as of this encounter
--- OUTSIDE RECORDS SUMMARY | 2024-05-11 11:32 | XMS_ITS | Encounter Summary ---
Author Organization [facility] Address [facility] [place] [address] Care Team Providers Care Tray Checker Name Role Phone Ana Her MD Primary Care Provider [phone] Encounter Details Date Type Department Care Team (Latest Contact Info) Description 04/24/2014 - 04/24/2014 11:59 PM EST Hospital Encounter Radiology Library at [facility] [place] [address] Maryam Yee MD [facility] [place] [address] Screening breast examination Discharge Disposition: Home Social [...] Only Mammo (04/24/2014 12:00 AM EST) Narrative [facility] - 02/19/2017 1:46 PM EDT This exam is for storage only and is auto-finalizing. Maryam Yee MD IMG FILM LIBRARY O RDERABLES [place], [place] documented in this encounter Visit Diagnoses Diagnosis Screening breast examination Other screening breast examination documented in this encounter Care Teams Tray Checker Relationship Specialty Start Date End Date Ana Her MD [address] [facility] 1 [place] [address] PCP - General 07/29/13 documented as of this encounter
--- OUTSIDE RECORDS SUMMARY | 2024-05-11 11:32 | XMS_ITS | Encounter Summary ---
Author Organization [facility] [place] [address] Care Team Providers Care Shipper Receiver Name Role Phone Ana Her MD Primary Care Provider [phone] Encounter Details Date Type Department Care Team (Late st Contact Info) Description 08/16/2014 Orders Only Functional Alevism Program at [facility] [address] [place] [address] Khari Martínez MD Social History Tobacco Use [...] on filedocumented in this encounter Care Teams Shipper Receiver Relationship Specialty Start Date End Date Ana Her MD [facility] [address] [facility] 1 [place] [address] PCP - General 07/29/13 documented as of this encounter
--- OUTSIDE RECORDS SUMMARY | 2024-05-11 11:32 | XMS_ITS | Encounter Summary ---
[place] [address] Care Team Providers Care Public Relations Counselor Name Role Phone Ana Her MD Primary Care Provider [phone] Encounter Details Date Type Department Care Team (Late st Contact Info) Description 05/06/2017 Telephone Radiation Oncology at [address] [address] Maria A Antonio RN Social [...] on filedocumented in this encounter Care Teams Public Relations Counselor Relationship Specialty Start Date End Date Ana Her MD [address] [facility] 1 [place] [address] PCP - General 07/29/13 documented as of this encounter
--- OUTSIDE RECORDS SUMMARY | 2024-05-11 11:32 | XMS_ITS | Encounter Summary ---
Author Organization [facility] [address] Care Team Providers Care Fire Pot Operator Name Role Phone Ana Her MD Primary Care Provider [phone] Encounter Details Date Type Department Care Team (Late st Contact Info) Description 03/04/2017 Orders [place] [address] Malika Chen MD [facility] [place] [address] Malignant neoplasm of upper-outer quadrant of left [...] MD IMG MAMMO ORDERABLE S * Mammo [place] Node Injection (03/30/2017 9:01 AM EST) Anatomical [...] positive documented in this encounter Care Teams Fire Pot Operator Relationship Specialty Start Date End Date Ana Her MD [address] [facility] 1 [place] [address] PCP - General 07/29/13 documented as of this encounter
--- OUTSIDE RECORDS SUMMARY | 2024-05-11 11:32 | XMS_ITS | Encounter Summary ---
Author Organization [facility] Address [facility] [place] [address] Care Team Providers Care Traffic Assistant Name Role Phone Ana Her MD Primary Care Provider [phone] Encounter Details Date Type Department Care Team (Latest Contact Info) Description 02/17/2017 - 02/17/2017 12:14 AM EDT Hospital Encounter Radiology Library at [facility] [place] [address] Maryam Yee MD [facility] [place] [address] Screening breast examination Discharge Disposition: Home Social [...] Only Mammo (02/17/2017 12:00 AM EDT) Narrative [facility] - 02/19/2017 1:59 PM EDT This exam is for storage only and is auto-finalizing. Maryam Yee MD IMG FILM LIBRARY O RDERABLES Performing Organization Address City/State/[facility] Co de Phone Number [place], [place] documented in this encounter Visit Diagnoses Diagnosis Screening breast examination Other screening breast examination documented in this encounter Care Teams Traffic Assistant Relationship Specialty Start Date End Date Ana Her MD [address] [place] [address] PCP - General 07/29/13 documented as of this encounter
--- OUTSIDE RECORDS SUMMARY | 2024-05-11 11:32 | XMS_ITS | Encounter Summary ---
Author Organization [facility] [place] [address] Care Team Providers Care Cold Meat Chef Name Role Phone Ana Her MD Primary Care Provider [phone] Encounter Details Date Type Department Care Team (Latest Contact Info) Description 02/17/2017 12:15 AM EDT - 02/17/2017 11:59 PM EDT Hospital Encounter Radiology Library [place] [address] Maryam Yee MD [facility] [place] [address] Screening breast examination Discharge Disposition: Home Social [...] Only Mammo (02/17/2017 12:15 AM EDT) Narrative [facility] - 02/19/2017 2:01 PM EDT This exam is for storage only and is auto-finalizing. Maryam Yee MD IMG FILM LIBRARY O RDERABLES [place], [place] documented in this encounter Visit Diagnoses Diagnosis Screening breast examination Other screening breast examination documented in this encounter Care Teams Cold Meat Chef Relationship Specialty Start Date End Date Ana Her MD [address] [place] [address] PCP - General 07/29/13 documented as of this encounter
--- OUTSIDE RECORDS SUMMARY | 2024-05-11 11:32 | XMS_ITS | Encounter Summary ---
[place] [address] Care Team Providers Care Automatic Spreader Operator Name Role Phone Ana Her MD Primary Care Provider [phone] Encounter Details Date Type Department Care Team (Latest Contact Info) Description 03/03/2017 7:55 AM EDT Laboratory Appointment Lab [address] [place] [address] Malignant neoplasm of left breast in female, [...] 7:50 AM EDT) Neutrophil % 72.8 % [facility] Neutrophil Absolute 6.45(H) 1.70 - 6.10 x10(3)/mc L [facility] Lymph % 14.4 % [facility] Lymphocytes Abs 1.3 0.9 - 3.2 x10(3)/ L [facility] Monocyte % 5.6 % [facility] Monocyte Abs 0.5 0.3 - 0.9 x10(3)/ L [facility] Eos % 6.1 % [facility] Eosinophils Abs 0.5(H) 0.0 - 0.4 x10(3)/ L [facility] Basophil % 0.6 % [facility] Baso Absolute 0.0 0.0 - [...] Absolute 0.04 0.00 - 0.04 x10(3)/mc L [facility] Blood specimen (specimen) 03/03/2017 7:50 AM EDT 03/03/2017 8:03 AM EDT Narrative Resulting Agency Comment Spec In Lab Malika Chen MD HEMATOLOGY ORDERABL ES [facility] [address] * (ABNORMAL) Hemogram (03/03/2017 7:50 AM EDT) White Blood Cell 8.8 4.0 - 9.5 x10(3)/mc L [facility] Red Blood Cell 3.80(L) 4.00 - 5.21 x10(6)/mc L [facility] Hemoglobin 12.3 11.7 - 15.5 gm/dL [facility] Hematocrit 36.3 35.7 - 45.8 % [facility] Mean Cell Volume 95.5(H) 82.6 - 94.4 fL [facility] Mean Cell Hemoglobin 32.4(H) 27.1 - 32.0 pg [facility] Mean Cell Hemoglobin Concentration 33.9 31.7 - 35.0 gm/dL [facility] Platelet 156 145 - 357 x10(3)/ L [facility] RDW Standard Deviation 48.3(H) 37.0 - 46.0 [facility] RDW coefficient of variation 13.9 11.5 - 14.1 % [facility] Mean Platelet Volume 11.9 7.6 - 12.9 fL [facility] NRBC% auto 0.0 % [facility] NRBC Absolute 0.000 0.000 - 0.000 x10(3)/ L [facility] Blood specimen (specimen) 03/03/2017 7:50 AM EDT 03/03/2017 8:03 AM EDT Narrative Resulting Agency Comment Spec In Lab Malika Chen MD HEMATOLOGY ORDERABL ES [facility] [address] * (ABNORMAL) Comprehensive metabolic panel (non-fasting) (03/03/2017 7:50 AM EDT) Glucose 139 65 - 199 mg/dL [facility] Comment:Diabetes: >=200 mg/d L plus symptoms Blood Urea Nitrogen 20(H) 8 - 18 mg/dL [facility] Creatinine 0.95 0.70 - 1.20 mg/dL [facility] Sodium 141 135 - 145 mmol/L [facility] Carbon Dioxide 26 22 - 31 mmol/L [facility] Anion Gap 14 5 - 15 mmol/L [facility] Calcium 9.3 8.5 - 10.5 mg/dL [facility] Protein, Total 6.9 6.1 - 8.0 gm/dL [facility] Albumin 4.2 3.2 - 5.2 gm/dL [facility] Aspartate Aminotransferase 17 0 - 30 unit/L [facility] Alanine Aminotransferase 16 0 - 30 unit/L [facility] Alkaline Phosphatase 75 40 - 104 unit/L [facility] Bilirubin, Total 0.5 0.2 - 1.3 mg/dL [facility] Est Glomerular Filtration Rate 58(L) >=60 [facility] Comment: The reported eGFR should be multiplied by 1.2 for patients. The MDRD is not an appropriate measure of renal function for patients with body mass extremes or in patients with acute kidney failure. http://Visonys.Enablon/DHnkdep http://Visonys.com/DHMCnkf Blood specimen (specimen) 03/03/2017 7:50 AM EDT 03/03/2017 8:03 AM EDT Narrative Resulting Agency Comment Spec In Lab Malika Chen MD [place] [address] documented in this encounter Visit Diagnoses Diagnosis Malignant neoplasm of left breast in female, estrogen receptor positive, unspecified site of breast documented in this encounter Care Teams Automatic Spreader Operator Relationship Specialty Start Date End Date Ana Her MD [address] [place] [address] PCP - General 07/29/13 documented as of this encounter
--- OUTSIDE RECORDS SUMMARY | 2024-05-11 11:32 | XMS_ITS | Encounter Summary ---
Author Organization [facility] [place] [address] Care Team Providers Care Dna Sequencing Associate Name Role Phone Ana Her MD Primary Care Provider [phone] Encounter Details Date Type Department Care Team (Latest Contact Info) Description 03/30/2017 8:30 AM [facility] Hospital [place] [address] Malika Chen MD [facility] [place] [address] Malignant neoplasm of upper-outer quadrant of left [...] positive documented in this encounter Care Teams Dna Sequencing Associate Relationship Specialty Start Date End Date Ana Her MD [address] [place] [address] PCP - General 07/29/13 documented as of this encounter
--- OUTSIDE RECORDS SUMMARY | 2024-05-11 11:32 | XMS_ITS | Encounter Summary ---
[place] [address] Care Team Providers Care Car Dumper Name Role Phone Ana Her MD Primary Care Provider [phone] Reason for Visit * Reason Comments Establish Care * Consultation (Routine) - Specialty Diagnoses / Procedures Referred By Christiano hackett Referred To Contact Hematology and Oncology Diagnoses Other abnormal and inconclusive findings on diagnostic imaging of breast abnormal mammo, left breast Jackie Cisneros, WENDY [address] [place] [address] [facility] Hem Onc [address] [place] [address] Referral ID Status Reason Start Date Expiration Date V isits Requested Visits Authorized [id number] Consult, Test & Treat Connection Center 02/17/2017 05/20/2017 6 6 Encounter Details Date Type Department Care Team (Late st Contact Info) Description 03/03/2017 9:00 AM EDT Office [place] [address] Malika Chen MD [facility] [place] [address] Argentina Sanchez, RN Malignant neoplasm [...] handout created by physical therapists at [facility]. 7. Breast Cancer Treatment Process care map provided and reviewed. 8. Things to Consider...What I Wish I Knew advice from breast cancer patients handout provided. She verbalized understanding of the plan of care and states all her questions were answered. Twentyminutes was spent in education and providing support. Alma Delia has our contact information. She will call the surgical dressing maker to schedule surgery after she has her [...] Alma Delia had [place] bone [place] which was read as possible metastasis in the left tibia. Of note- she fractured this area recently. She has recovered well. PMH HNT NIDDM not on meds Spinal stenosis Fractured left tibial plateau December, GERD FH: Maternal first cousin with breast cancer Brother with rectal cancer Sister with PE SH: lives alone. Has good support from sisters who live in [place]. Non smoker. Has a son who lives [...] positive documented in this encounter Care Teams Car Dumper Relationship Specialty Start Date End Date Ana Her MD [address] [place] [address] PCP - General 07/29/13 documented as of this encounter
--- OUTSIDE RECORDS SUMMARY | 2024-05-11 11:32 | XMS_ITS | Encounter Summary ---
Author Organization [facility] [place] [address] Care Team Providers Care Day Camp Counselor Name Role Phone Ana Her MD Primary Care Provider [phone] Encounter Details Date Type Department Care Team (Late st Contact Info) Description 03/30/2017 9:30 AM EST - 03/30/2017 11:28 AM EST Surgery [place] [phone] Brant Chen MD [facility] [place] [address] MASTECTOMY PARTIAL (WRVU 10.13) Social History Tobacco [...] shower 24 hours Activity as tolerated Call [phone] with any questions Do not soak incision [...] obtained which revealed IDC which is ER/NC+, her2-. She has no known breast masses, no adenopathy, no nipple discharge. ?? Alma Delia had a bone scan in [place] which was read as possible metastasis in the left tibia. Of note- she fractured this area recently. She has recovered well. ?? PMH HNT NIDDM not on meds Spinal stenosis Fractured left tibial plateau [place], 2017 GERD ?? FH: Maternal first cousin with breast cancer Brother with rectal cancer Sister with PE ? SH: lives alone. Has good support from sisters who live in [place]. Non smoker. Has a son who lives [...] 71 yo female with radiographic stage I ER/NC+, HER2- IDC of the left breast. No [...] Operative Note Patient Name: Digna Olson : [id number] MR#: [id number] Case Date: 03/30/2017 Surgeon: Surgeon(s) and Role: [...] [place] [id number]. Remaining count within the axilla was 1982. [...] PM EST 03/30/2017 12:09 PM EST Narrative [facility] - 03/30/2017 12:09 PM EST Specimen requisition ordered. ??Separate Pathology report to follow Brant Chen MD PATHOLOGY/CYTOLOGY ORDERABLES [facility] [place] [address] * Specimen to Pathology (surgical or derm) (03/30/2017 12:08 PM EST) AP Specimen 03/30/2017 12:0 8 PM EST 03/30/2017 12:08 PM EST Narrative [facility] - 03/30/2017 12:08 PM EST Specimen requisition ordered. ??Separate Pathology report to follow Brant Chen MD PATHOLOGY/CYTOLOGY ORDERABLES Performing Organization Address [facility] Co de Phone Number [facility] [place] [address] * Specimen to Pathology (surgical or derm) (03/30/2017 12:00 PM EST) AP Specimen 03/30/2017 12:0 0 PM EST 03/30/2017 12:00 PM EST Narrative [facility] - 03/30/2017 12:00 PM EST Specimen requisition ordered. ??Separate Pathology report to follow Brant Chen MD PATHOLOGY/CYTOLOGY ORDERABLES Performing Organization Address [facility] [place] [address] * Specimen to Pathology (surgical or derm) (03/30/2017 11:51 AM EST) AP Specimen 03/30/2017 11:5 1 AM EST 03/30/2017 11:51 AM EST Narrative [facility] - 03/30/2017 11:51 AM EST Specimen requisition ordered. ??Separate Pathology report to follow Brant Chen MD PATHOLOGY/CYTOLOGY ORDERABLES Performing Organization Address [facility] Co de Phone Number [facility] [place] [phone] * Surgical Pathology Report (03/30/2017 11:50 AM EST) Final Diagnosis [id number] ? Location: [facility]; [facility]; A The signing pathologist has (i) examined the relevant preparation(s) for the specimen(s) and (ii) rendered or confirmed the diagnosis(es). . ?Surgical Pathology DIAGNOSIS A,B - See Synoptic C - Left breast, Deep/lateral margin re-excision - ?Benign fatty breast tissue. D - Left breast, Superficial margin re-excision - ?Benign fatty breast tissue. See Note Note - [place] ink (indicating additional cranial margin) is also present on this superficial margin re-excision. ---- Specimen Parts: ?? A - Left axilliary sentinel node B - Left breast partial mastectomy Specimen ? Procedure: ??Excision with image-guided localization ? Lymph Node Sampling: ?? [place] lymph node(s) ? Specimen Laterality: ?? Left [...] not present in specimen Lymph Nodes ? [place] Lymph Nodes: ?? [place] lymph node biopsy performed ? Number of [place] Nodes Examined: ?3 ? Number of Lymph [...] [facility], [place], [place] CLINICAL INFORMATION Specimen Submitted: A - [...] and there are ??no close margins. per [facility] Radiology . Specimen Description: According to [...] 0.8 x 0.4 x 0.4 cm. Color: [place] and yellow. Consistency: Soft. Location: Slices III and IV. Nearest Margin: 0.6 cm to the cranial margin. Other Margins: 0.8 cm to the deep margin, 1.0 cm to the superficial margin, ? > 2 cm from all other margins. OTHER Parenchyma: Predominately fatty with scant fibrous tissue. Wire/Clip: Biopsy marker clip identified within slice IV. SECTIONS/PROCESSI NG: (1) medical service representative slice I, lateral margin; (2) slice III, lesion to cranial margin; (3-5) remainder of slice III; (6) slice IV, lesion to cranial margin (clip); (7-8) remainder of slice IV; (9) medical service representative slice V; (10) medical service representative slice X, medial margin. (R10) [...] sectioned. (T3) ??sns 04/01/2017 9:38 AM EST [facility] BREAST STRUCTURE / Unknown 03/30/2017 11:50 AM EST 03/30/2017 11:50 AM EST BREAST STRUCTURE / Unknown 03/30/2017 11:50 AM EST 03/30/2017 11:50 AM EST BREAST STRUCTURE / Unknown 03/30/2017 11:50 AM EST 03/30/2017 11:50 AM EST BREAST STRUCTURE / Unknown 03/30/2017 11:50 AM EST 03/30/2017 11:50 AM EST Brant Chen MD PATHOLOGY/CYTOLOGY ORDERABLES [facility] [place] [address] * Mammo Direct Digital Left (03/30/2017 9:15 [...] Routine documented in this encounter Care Teams Day Camp Counselor Relationship Specialty Start Date End Date Ana Her MD [address] [place] [address] PCP - General 07/29/13 documented as of this encounter
--- OUTSIDE RECORDS SUMMARY | 2024-05-11 11:32 | XMS_ITS | Encounter Summary ---
Author Organization [facility] Address [facility] [place] [address] Care Team Providers Care Housing Director Name Role Phone Ana Her MD Primary Care Provider [phone] Encounter Details Date Type Department Care Team (Latest Contact Info) Description 02/12/2017 - 02/12/2017 11:59 PM EDT Hospital Encounter Radiology Library [place] [facility] [place] [address] Maryam Yee MD [facility] [place] [address] Screening breast examination Discharge Disposition: Home Social [...] Only Mammo (02/12/2017 12:00 AM EDT) Narrative [facility] - 02/19/2017 1:47 PM EDT This exam is for storage only and is auto-finalizing. Maryam Yee MD IMG FILM LIBRARY O RDERABLES Performing Organization Address City/State/[place] Co de Phone Number [place], [place] documented in this encounter Visit Diagnoses Diagnosis Screening breast examination Other screening breast examination documented in this encounter Care Teams Housing Director Relationship Specialty Start Date End Date Ana Her MD [address] [place] [address] PCP - General 07/29/13 documented as of this encounter
--- OUTSIDE RECORDS SUMMARY | 2024-05-11 11:32 | XMS_ITS | Encounter Summary ---
Author Organization [facility] Address [address] [facility] [place] [address] Care Team Providers Care Bevel Gear Generator Operator Name Role Phone Ana Her MD Primary Care Provider [phone] Encounter Details Date Type Department Care Team (Late st Contact Info) Description 09/13/2015 Interpretation Only Radiology [address] [facility] [place] [address] Unknown None Social History Tobacco Use Types [...] 6:56 AM EDT APD Historical Result Principal Bioinformaticist: ??MAE ??ESCHBACH IMAGE-INTENSIFIER FILMS: INDICATION: ??Right L4 foraminotomy. FINDINGS: A total of 5.8 seconds of fluoro time was utilized by Geraldine Claros MD. ??Estimated dose is 5.96 mGy. ??Two image-intensifier films record the event. ??They show the lumbosacral junction in the lateral projection with a surgical instrument indicating the level of L4. ??No Radiologist was present for this exam. Mae Shelley DO TOBIN/mn [id number] Procedure Note Unknown - 11/01/2018 APD Historical Result Principal Bioinformaticist: MAE SHELLEY IMAGE-INTENSIFIER FILMS: INDICATION: Right L4 foraminotomy. FINDINGS: A total of 5.8 seconds of fluoro time was utilized by Geraldine Claros MD. Estimated dose is 5.96 mGy. Two image-intensifier films record the event. They show thelumbosacral junction in the lateral projection with a surgical instrument indicating the level of L4.No Radiologist was present for this exam. Mae Shelley DO TOBIN/mn [id number] Unknown IMG FLUORO ORDERABLE S documented in this encounter Visit Diagnoses Not on filedocumented in this encounter Care Teams Bevel Gear Generator Operator Relationship Specialty Start Date End Date Ana Her MD [address] [place] [address] PCP - General 07/29/13 documented as of this encounter
--- OUTSIDE RECORDS SUMMARY | 2024-05-11 11:32 | XMS_ITS | Encounter Summary ---
Author Organization [facility] Address [place] [address] Care Team Providers Care Manager Multimedia Name Role Phone Ana Her MD Primary Care Provider [phone] Encounter Details Date Type Department Care Team (Latest Contact Info) Description 02/23/2017 3:50 PM EDT - 02/23/2017 11:59 PM EDT Hospital Encounter Radiology Library at [facility] [place] [phone] Jackie Cisneros APRN [address] [place] [address] Left breast mass Discharge Disposition: Home Social [...] recommended. Please note: The interpretation of the [facility] Breast Imaging Radiologist subspecialist may differ from the original radiologists interpretation. This is usually not due to a deficiency of the original interpreting radiologist, rather due to the greater skill level afforded by sub-specialization in the field and/or reasonable variations in interpretations. If you have a concern regarding the D-H interpretation you may contact the [facility] Laundry Room Attendant Office at . I have personally reviewed [...] the care of this patient. STUDIES FROM: [facility] DATES: Screening mammogram 02/12/2017, [...] alter the care of thispatient. STUDIES FROM: [facility] DATES: Screening mammogram 02/12/2017, [...] recommended. Please note: The interpretation of the [facility] BreastImaging Radiologist subspecialist may differ from the original radiologists interpretation. This is usually not due to a deficiency of the original interpreting radiologist, rather due to the greater skill level affordedby sub-specialization in the field and/or reasonable variations ininterpretations. If you have a concern regarding the D-H interpretation you may [facility] at . I have personally reviewed the image(s) and the residents interpretationand agree with the findings, ROBERT THOMPSON at 02/24/2017 8:41 AM 8:41 AM Jackie Cisneros CARD CLEANER IMG OUTSIDE INTERPRE TATION ORDERABLES documented in this encounter Visit Diagnoses Diagnosis Left breast mass Lump or mass in breast documented in this encounter Care Teams Manager Multimedia Relationship Specialty Start Date End Date Ana Her MD [address] [place] [address] PCP - General 07/29/13 documented as of this encounter
--- OUTSIDE RECORDS SUMMARY | 2024-05-11 11:32 | XMS_ITS | Encounter Summary ---
[place] [address] Care Team Providers Care Talent Specialist Name Role Phone Ana Her MD Primary Care Provider Encounter Details Date Type Department Care Team (Late st Contact Info) Description 04/09/2017 Abstract Radiation Oncology at [address] [phone] Maria A Antonio, RN Social History Tobacco [...] on filedocumented in this encounter Care Teams Talent Specialist Relationship Specialty Start Date End Date Ana Her MD [address] [place] [address] PCP - General 07/29/13 documented as of this encounter
--- OUTSIDE RECORDS SUMMARY | 2024-05-11 11:32 | XMS_ITS | Encounter Summary ---
Author Organization [facility] Address [facility] [place] [address] Care Team Providers Care Softball Core Molder Name Role Phone Ana Her MD Primary Care Provider [phone] Encounter Details Date Type Department Care Team (Latest Contact Info) Description 10/28/2016 - 10/28/2016 11:59 PM EDT Hospital Encounter Radiology Library [place] [facility] [place] [address] Ricky Lowry MD Discharge Disposition: Home Social [...] DXA Images (10/28/2016 12:00 AM EDT) Narrative [facility] - 04/24/2017 2:13 PM EST This exam is for storage only and is auto-finalizing. Ricky Lowry MD IMG FILM LIBRARY ORD ERABLES Performing Organization Address City/State/[facility] Co de Phone Number [place], [place] documented in this encounter Visit Diagnoses Not on filedocumented in this encounter Care Teams Softball Core Molder Relationship Specialty Start Date End Date Ana Her MD [address] [place] [address] PCP - General 07/29/13 documented as of this encounter
--- OUTSIDE RECORDS SUMMARY | 2024-05-11 11:32 | XMS_ITS | Encounter Summary ---
Author Organization [facility] [place] [address] Care Team Providers Care Lead Customer Service Representative Name Role Phone Ana Her MD Primary Care Provider [phone] Encounter Details Date Type Department Care Team (Latest Contact Info) Description 03/30/2017 8:30 AM [facility] Hospital [place] [address] Malika Chen MD [facility] GENERAL SURGERY [address] Malignant neoplasm of upper-outer quadrant of left [...] mg documented in this encounter Care Teams Lead Customer Service Representative Relationship Specialty Start Date End Date Ana Her MD [address] [place] [address] PCP - General 07/29/13 documented as of this encounter
--- OUTSIDE RECORDS SUMMARY | 2024-05-11 11:32 | XMS_ITS | Encounter Summary ---
Author Organization [facility] [place] [address] Care Team Providers Care Graphite Mill Operator Name Role Phone Ana Her MD Primary Care Provider [phone] Reason for Visit * Reason Comments Follow Up Surgery Encounter Details Date Type Department Care Team (Late st Contact Info) Description 07/13/2017 1:30 PM EDT Office [place] [phone] Hiral Padgett, WENDY History of breast cancer [...] with image-guided localization ?Lymph Node Sampling: ?? [place] lymph node(s) ?Specimen Laterality: ?? Left Tumor [...] ?DCIS not present in specimen Lymph Nodes ?[place] Lymph Nodes: ?? [place] lymph node biopsy performed ?Number of [place] Nodes Examined: ?3 ?Number of Lymph Node(s) [...] breast documented in this encounter Care Teams Graphite Mill Operator Relationship Specialty Start Date End Date Ana Her MD [facility] [address] [place] [address] PCP - General 07/29/13 documented as of this encounter
--- OUTSIDE RECORDS SUMMARY | 2024-05-11 11:32 | XMS_ITS | Encounter Summary ---
Author Organization [facility] [place] [address] Care Team Providers Care Bilingual Research Interviewer Name Role Phone Ana Her MD Primary Care Provider [phone] Encounter Details Date Type Department Care Team (Late st Contact Info) Description 04/23/2017 Notes [place] [address] Marjorie Ariza Social History Tobacco Use Types [...] Marjorie Ariza - 04/23/2017 2:43 PM EST Fuel Conversion Technician Fiberglass Container Winding Operator met with pt after consultation with medical [...] on filedocumented in this encounter Care Teams Bilingual Research Interviewer Relationship Specialty Start Date End Date Ana Her MD [address] [facility] [address] [place] [address] PCP - General 07/29/13 documented as of this encounter
--- OUTSIDE RECORDS SUMMARY | 2024-05-11 11:32 | XMS_ITS | Encounter Summary ---
Author Organization [facility] [place] [address] Care Team Providers Care X Ray Service Engineer Name Role Phone Ana Her MD Primary Care Provider [phone] Encounter Details Date Type Department Care Team (Late st Contact Info) Description 03/03/2017 Notes [place] [address] January Ward MSW Social History Tobacco Use Types Packs/Day Years Used Date Smoking Tobacco: Never Smokeless Tobacco: Never Sex and Gender Information Value Date Recorded Sex Assigned at Not on file Gender Identity Not on file Sexual Orientation Not on file documented as of this encounter Progress Notes * January Ward MSW - 03/03/2017 12:56 PM EDT OFFICE OF CARE MANAGEMENT/CONTINUING PUBLIC SERVICES ASSISTANT Reason for referral: Digna Olson is a 71 year old, female who was seen in the multidisciplinarybreast care clinic for a surgical consult as she was recently diagnosed with ER/CA+, left breast, invasive mucinous carcinoma. After meeting with Dr. Chen, pt has decided to have a lumpectomy/SLNB. If pt needs radiation therapy, she will receive it at the [facility]. [facility] met with pt to complete a psychosocial assessment and to explain my role in the breast program. Pt was encouraged to contact me if she has any questions or concerns. Living arrangements/social supports: Pt lives alone in [place], [place]. She has support from her family and is accompanied to today's appt by her sisters who live in [place]. Employment/Insurance/Finances: Pt is retired and receives Social [...] the [facility]. Plan: [facility] will continue to follow pt to assess and assist with their psychosocial needs. DELONTE [facility]/[place] [phone] Pager #[phone] documented in this encounter Plan of Treatment Not on file documented as of this encounter Visit Diagnoses Not on filedocumented in this encounter Care Teams X Ray Service Engineer Relationship Specialty Start Date End Date Ana Her MD [address] [place] [address] PCP - General 07/29/13 documented as of this encounter
--- OUTSIDE RECORDS SUMMARY | 2024-05-11 11:33 | XMS_ITS | Encounter Summary ---
Author Organization [facility] Address [address] [place] [address] Care Team Providers Care Beauty Director Name Role Phone Unknown, Provider Primary Care Provider Unava ilable Encounter Details Date Type Department Care Team (Late st Contact Info) Description 11/19/2023 Lab Requisition [facility] Pathology & Laboratory Medicine - [facility] [address] [place], [place] [phone] Outr Resulting Lab, Provider Social History Tobacco [...] 201 - 352 mg/dL 11/20/2023 9:45 EDT [facility] Blood VENOUS BLOOD / Unknown 11/19/2023 6:05 EDT 11/19/2023 17:32 EDT us Provider Outr Resulting Lab CHEMISTRY & BLOOD GA S ORDERABLES Final Result [facility] [address] [place], [place] [address] documented in this encounter Visit Diagnoses Not on filedocumented in this encounter Care Teams Beauty Director Relationship Specialty Start Date End Date Unknown, Provider, PCP - General 01/13/14 documented as of this encounter
--- OUTSIDE RECORDS SUMMARY | 2024-05-11 11:33 | XMS_ITS | Encounter Summary ---
Author Organization [facility] Address [facility] [place] [address] Care Team Providers Care Cps Team Lead Name Role Phone Unavailable Primary Care Provider Unavailabl e Encounter Details Date Type Department Care Team (Latest Contact Info) Description 12/19/2009 - 12/19/2009 11:59 PM EDT Hospital Encounter Radiology Library at [facility] [place] [address] Jackie Cisneros APRN [facility] [place] [address] [place] [address] Discharge Disposition: Home Social History Tobacco Use [...] Only Mammo (12/19/2009 12:00 AM EDT) Narrative [facility] - 02/23/2017 3:29 PM EDT This exam is for storage only and is auto-finalizing. Jackie Cisneros APRN IMG FILM LIBRARY ORD ERABLES NADINE Sethi documented in this encounter Visit Diagnoses Not on filedocumented in this encounter
--- OUTSIDE RECORDS SUMMARY | 2024-05-11 11:33 | XMS_ITS | Encounter Summary ---
Author Organization [facility] Address [address] [place] [address] Care Team Providers Care Endo Tech Name Role Phone Unknown, Provider Primary Care Provider Unava ilable Encounter Details Date Type Department Care Team (Late st Contact Info) Description 01/20/2020 Lab Requisition [facility] Pathology & Laboratory Medicine - [facility] [address] [place] [address] Outr Resulting Lab, Provider Social History Tobacco [...] rt-PCR Result NEGATIVE Negative 01/21/2020 16:10 EDT [facility] Comment: 2019-novel Coronavirus [...] in accordance with CLIA regulations, [employer] [place] [employer] (CAP) guidelines (Jul 21, 2019), and FDA guidance (Jul 02, 2019). This test is only for use under the Food and Drug Administration's Emergency Use Authorization. Swab ENTIRE NASOPHARYNX / Unknown 01/20/2020 10:30 EDT 01/20/2020 15:35 EDT us Provider Outr Resulting Lab MICROBIOLOGY - GENER AL ORDERABLES Final Result Performing Organization Address City/State/[facility] Co de Phone Number [facility] [place], [place] * COVID-19 TESTING (01/20/2020 10:30 EDT) COVID-19 rt-PCR Result NEGATIVE Negative 01/21/2020 17:21 EDT [facility] Comment: 2019-novel Coronavirus (2019-nCoV) not detected [...] in accordance with CLIA regulations, [employer] [place] Path[employer] (CAP) guidelines (Jul 21, 2019), and FDA guidance (Jul 02, 2019). This test is only for use under the Food and Drug Administration's Emergency Use Authorization. Performing Lab [facility] 01/21/2020 17:21 EDT [facility] Swab 01/20/2020 10:3 0 EDT 01/20/2020 15:35 EDT us Provider Outr Resulting Lab MICROBIOLOGY - GENER AL ORDERABLES Final Result [facility] [address] [place] [address] [facility] [place], [place] documented in this encounter Visit Diagnoses Not on filedocumented in this encounter Care Teams Endo Tech Relationship Specialty Start Date End Date Unknown, Provider, PCP - General 01/13/14 documented as of this encounter
--- OUTSIDE RECORDS SUMMARY | 2024-05-11 11:33 | XMS_ITS | Encounter Summary ---
Author Organization [facility] Address [facility] [place] [address] Care Team Providers Care Regenerator Operator Name Role Phone Unavailable Primary Care Provider Unavailabl e Encounter Details Date Type Department Care Team (Latest Contact Info) Description 11/12/2007 - 11/12/2007 11:59 PM EDT Hospital Encounter Radiology Library at [facility] [place] [address] Jackie Cisneros APRN [facility] [place] [place] [address] Discharge Disposition: Home Social History Tobacco Use [...]
--- OUTSIDE RECORDS SUMMARY | 2024-05-11 11:33 | XMS_ITS | Encounter Summary ---
Author Organization [facility] Address [address] [place] [address] Care Team Providers Care Broom Worker Name Role Phone Unknown, Provider MD Primary Care Provider Unava ilable Encounter Details Date Type Department Care Team (Late st Contact Info) Description 10/26/2022 Lab Requisition [facility] Pathology & Laboratory Medicine - [place] [address] [place] [address] Outr Resulting Lab, Provider Social History Tobacco [...] Neg and Giardia Antigen Neg 13:48 EDT [facility] Feces SPECIMEN FROM RECTUM / Unknown 10/25/2022 15:00 EDT 10/26/2022 15:25 EDT us Provider Outr Resulting Lab MICROBIOLOGY - GENER AL ORDERABLES Final Result [facility] [address] [place] [address] * FECAL BACTERIAL PATHOGENS BY PCR (10/25/2022 15:00 EDT) Salmonella PCR Negative Negative 10/26/2022 19:17 EDT [facility] Shigella/Enteroin vasive E. coli Negative Negative 10/26/2022 19:17 EDT [facility] HN LAB CAMPYLOBACTER PCR Negative Negative 10/26/2022 19:17 EDT [facility] Shiga Toxin PCR Negative Negative 19:17 EDT [facility] Feces SPECIMEN FROM RECTUM / Unknown 10/25/2022 15:00 EDT 10/26/2022 15:25 EDT us Provider Outr Resulting Lab MICROBIOLOGY - GENER AL ORDERABLES Final Result Performing Organization Address [facility] Co de Phone Number [facility] [address] [place] [address] * OVA/PARASITE EXAM (10/25/2022 15:00 EDT) Parasite No ova and parasites seen. 10/28/2022 15:08 EDT [facility] Feces SPECIMEN FROM RECTUM / Unknown 10/25/2022 15:00 EDT 10/26/2022 15:25 EDT Narrative [facility] - 10/28/2022 15:08 EDT (If Cryptosporidium, Cyclospora, or Microsporidium are suspected, specific tests must be requested.) Single negative specimen does not rule out the possibility of a parasitic infection. us Provider Outr Resulting Lab MICROBIOLOGY - GENER AL ORDERABLES Final Result Performing Organization Address City/[facility]/ZIP Co de Phone Number [facility] [address] [place] [address] documented in this encounter Visit Diagnoses Not on filedocumented in this encounter Care Teams Broom Worker Relationship Specialty Start Date End Date Unknown, Provider, PCP - General 9/12/14 documented as of this encounter
--- OUTSIDE RECORDS SUMMARY | 2024-05-11 11:33 | XMS_ITS | Patient Health Record ---
Author Organization [facility] Address [address] [place] [address] Care Team Providers Care Certified Fire Investigator Name Role Phone Non Compass, Provider Primary Care Provider [phone] Reason For Referral No Information Medications Medication [...] Medicare [address] [place] [id number] Digna Olson Self - patient is the insured [facility] Medicare Plan [address] [place], [place] [id number] Digna Olson Self - patient is the insured Medical (General) History Medical History History ICD Code Atrial fibrillation Hypertension Hypothyroidism Non insulin-dependent diabetes
--- OUTSIDE RECORDS SUMMARY | 2024-05-11 11:33 | XMS_ITS | Encounter Summary ---
Author Organization [facility] Address [facility] [place] [address] Care Team Providers Care It Software Engineer Name Role Phone Unavailable Primary Care Provider Unavailabl e Encounter Details Date Type Department Care Team (Latest Contact Info) Description 04/04/2005 - 04/04/2005 11:59 PM EST Hospital Encounter Radiology Library [place] [address] Jackie Cisneros APRN [facility] [place] [address] [place] [address] Discharge Disposition: Home Social History Tobacco Use [...]
--- OUTSIDE RECORDS SUMMARY | 2024-05-11 11:33 | XMS_ITS | Encounter Summary ---
Author Organization [facility] Address [facility] [place] [address] Care Team Providers Care Television Analyzer Name Role Phone Unavailable Primary Care Provider Unavailabl e Encounter Details Date Type Department Care Team (Latest Contact Info) Description 12/25/2010 - 12/25/2010 11:59 PM EDT Hospital Encounter Radiology Library at [facility] [place] [address] Jackie Cisneros APRN [facility] [place] [place] [address] Discharge Disposition: Home Social History Tobacco Use [...] Only Mammo (12/25/2010 12:00 AM EDT) Narrative [facility] - 02/23/2017 3:27 PM EDT This exam is for storage only and is auto-finalizing. Jackie Cisneros APRN IMG FILM LIBRARY ORD ERABLES NADINE Sethi documented in this encounter Visit Diagnoses Not on filedocumented in this encounter
--- OUTSIDE RECORDS SUMMARY | 2024-05-11 11:33 | XMS_ITS | Encounter Summary ---
Author Organization [facility] Address [address] [place] [address] Care Team Providers Care Etl Analyst Name Role Phone Unknown, Provider MD Primary Care Provider Unava ilable Encounter Details Date Type Department Care Team (Late st Contact Info) Description 04/06/2022 Lab Requisition [facility] Pathology & Laboratory Medicine - [facility] [address] [place] [address] Outr Resulting Lab, Provider Social History Tobacco [...] Salmonella PCR Negative Negative 04/06/2022 22:54 EST [facility] Shigella/Enteroin vasive E. coli Negative Negative 04/06/2022 22:54 EST [facility] HN LAB CAMPYLOBACTER PCR Negative Negative 04/06/2022 22:54 EST [facility] Shiga Toxin PCR Negative Negative 22:54 EST [facility] Feces SPECIMEN FROM RECTUM / Unknown 04/05/2022 10:41 EST 04/06/2022 18:31 EST us Provider Outr Resulting Lab MICROBIOLOGY - GENER AL ORDERABLES Final Result [facility] [address] [place] [address] documented in this encounter Visit Diagnoses Not on filedocumented in this encounter Care Teams Etl Analyst Relationship Specialty Start Date End Date Unknown, Provider, PCP - General 01/13/14 documented as of this encounter
--- OUTSIDE RECORDS SUMMARY | 2024-05-11 11:33 | XMS_ITS | Referral Summary ---
Author Organization [facility] Address [address] [place] [address] Care Team Providers Care Office Helper Name Role Phone Unknown, Provider MD Primary Care Provider Unava ilable Social History Tobacco Use Types Packs/Day Years Used Date Smoking Tobacco: Never Assessed Comments Unknown Sex and Gender Information Value Date Recorded Sex Assigned at Not on file Legal Sex Female 9:32 EDT Gender Identity Not on file Sexual Orientation Not on file Plan of Treatment Not on file Care Teams Office Helper Relationship Specialty Start Date End Date Unknown, Provider, PCP - General 01/13/14
--- OUTSIDE RECORDS SUMMARY | 2024-05-11 11:33 | XMS_ITS | Clinical Summary ---
Author Organization [facility] Address [address] [place] [address] Care Team Providers Care Health Sciences Program Coordinator Name Role Phone Unknown, Provider MD [...] COVID-19 Vaccine (2023- season) 2024 Care Teams Health Sciences Program Coordinator Relationship Specialty Start Date End Date Unknown, Provider, PCP - General 01/13/14
--- OUTSIDE RECORDS SUMMARY | 2024-05-11 11:33 | XMS_ITS | Encounter Summary ---
Author Organization [facility] Address [address] [place] [address] Care Team Providers Care Psychologist Personnel Name Role Phone Unavailable Primary Care Provider Unavailabl e Encounter Details Date Type Department Care Team (Latest Contact Info) Description 01/10/2014 20:50 EDT - 01/10/2014 23:59 EDT Hospital Encounter [facility] [address] [place] [address] Unknown, Provider, MD Discharge Disposition: Home or [...] Code Departure Means Destination Home or Self Assisted documented in this encounter Plan of Treatment Not on file documented as of this encounter Visit Diagnoses Not on filedocumented in this encounter
--- OUTSIDE RECORDS SUMMARY | 2024-05-11 11:33 | XMS_ITS | Encounter Summary ---
Author Organization [facility] Address [facility] [place] [address] Care Team Providers Care Ghost Writer Name Role Phone Unavailable Primary Care Provider Unavailabl e Encounter Details Date Type Department Care Team (Latest Contact Info) Description 03/19/2006 - 03/19/2006 11:59 PM EST Hospital Encounter Radiology Library at [facility] [place] [address] Jackie Cisneros APRN [facility] [place] [address] [place] [address] Discharge Disposition: Home Social History Tobacco Use [...]
--- OUTSIDE RECORDS SUMMARY | 2024-05-11 11:33 | XMS_ITS | Encounter Summary ---
[place] [address] Care Team Providers Care Certified Ophthalmic Assistant Name Role Phone Ana Her MD Primary Care Provider [phone] Reason for Visit * Reason Onset Date Comments Referral 07/29/2013 Encounter Details Date Type Department Care Team (Late st Contact Info) Description 07/29/2013 [place] [phone] Sophia Palacios Referral Social History Tobacco Use [...] on filedocumented in this encounter Care Teams Certified Ophthalmic Assistant Relationship Specialty Start Date End Date Ana Her MD [address] [facility] [address] [place] [address] PCP - General 07/29/13 documented as of this encounter
--- OUTSIDE RECORDS SUMMARY | 2024-05-11 11:33 | XMS_ITS | Encounter Summary ---
Author Organization [facility] Address [facility] [place] [address] Care Team Providers Care Tricot Knitter Name Role Phone Unavailable Primary Care Provider Unavailabl e Encounter Details Date Type Department Care Team (Latest Contact Info) Description 01/29/2013 - 01/29/2013 11:59 PM EDT Hospital Encounter Radiology Library at [facility] [place] [address] Jackie Cisneros APRN [facility] [place] [place] [address] Discharge Disposition: Home Social History Tobacco Use [...] Only Mammo (01/29/2013 12:00 AM EDT) Narrative [facility] - 02/23/2017 3:26 PM EDT This exam is for storage only and is auto-finalizing. Jackie Cisnreos APRN IMG FILM LIBRARY ORD ERABLES NADINE Sethi documented in this encounter Visit Diagnoses Not on filedocumented in this encounter
--- OUTSIDE RECORDS SUMMARY | 2024-05-11 11:33 | XMS_ITS | Encounter Summary ---
Author Organization [facility] Address [address] [place] [address] Care Team Providers Care Food And Beverage Attendant Name Role Phone Unknown, Provider Primary Care Provider Unava ilable Encounter Details Date Type Department Care Team (Late st Contact Info) Description 03/17/2017 Results Only [facility] [phone] Kat Lazaro MD [facility] [address] [place] [id number] Social History Tobacco Use Types Packs/Day Years [...] ? DIGNA KIMBROUGH ? Accession #: ? [id number] ? : ? 1945 (Age: 71) ??F [...] 03/18/2017 8:14 AM End of Report [facility] 03/17/2017 16:1 5 EST 03/17/2017 16:15 EST us Kat Lazaro MD PATHOLOGY ORDERABLES Fin al Result [facility] [address] [place] [address] documented in this encounter Visit Diagnoses Not on filedocumented in this encounter Care Teams Food And Beverage Attendant Relationship Specialty Start Date End Date Unknown, Provider, PCP - General 01/13/14 documented as of this encounter
--- OUTSIDE RECORDS SUMMARY | 2024-05-11 11:33 | XMS_ITS | Encounter Summary ---
Author Organization [facility] Address [address] [place] [address] Care Team Providers Care Manager Meeting Name Role Phone Unknown, Provider MD Primary Care Provider Unava ilable Encounter Details Date Type Department Care Team (Late st Contact Info) Description 08/12/2021 Lab Requisition [facility] Pathology & Laboratory Medicine - [facility] [address] [place] [address] Outr Resulting Lab, Provider Social History Tobacco [...] in this encounter Results * [facility] (08/12/2021 15:00 EDT) Swab 08/12/2021 15:0 0 EDT 08/13/2021 16:56 EDT us Provider Outr Resulting Lab MICROBIOLOGY - GENER AL ORDERABLES Final Result [facility] [address] [place] [address] * COVID-19 TESTING (08/12/2021 15:00 EDT) COVID-19 rt-PCR Result Negative Negative 08/14/2021 11:53 EDT [facility] Comment: This test [...] was performed using the palomo SARS-CoV-2 assay ([employer] on the Palomo 6800 System Performing Lab [facility] [address] [facility] Lab 08/14/2021 11:53 EDT [facility] Swab 08/12/2021 15:0 0 EDT 08/13/2021 16:56 EDT us Provider Outr Resulting Lab MICROBIOLOGY - GENER AL ORDERABLES Final Result [facility] [address] [place] [address] documented in this encounter Visit Diagnoses Not on filedocumented in this encounter Care Teams Manager Meeting Relationship Specialty Start Date End Date Unknown, Provider, PCP - General 01/13/14 documented as of this encounter
--- OUTSIDE RECORDS SUMMARY | 2024-05-11 11:33 | XMS_ITS | Encounter Summary ---
[place] [address] Care Team Providers Care Delivery Rn Name Role Phone Ana Her MD Primary Care Provider [phone] Encounter Details Date Type Department Care Team (Late st Contact Info) Description 07/26/2013 Orders [place] [address] Ana Her MD [facility] [address] [place] [address] Social History Tobacco Use Types Packs/Day Years [...] is a Non-reportable exam Ana Her MD [facility] FILM LIBRARY ORD ERABLES documented in this encounter Visit Diagnoses Not on filedocumented in this encounter Care Teams Delivery Rn Relationship Specialty Start Date End Date Ana Her MD [address] [place] [address] PCP - General 07/29/13 documented as of this encounter
--- OUTSIDE RECORDS SUMMARY | 2024-05-11 11:33 | XMS_ITS | Encounter Summary ---
Author Organization [facility] Address [facility] [place] [address] Care Team Providers Care Juvenile Officer Name Role Phone Unavailable Primary Care Provider Unavailabl e Encounter Details Date Type Department Care Team (Latest Contact Info) Description 12/08/2008 - 12/08/2008 11:59 PM EDT Hospital Encounter Radiology Library at [facility] [place] [address] Jackie Cisneros APRN [facility] [place] [address] [place] [address] Discharge Disposition: Home Social History Tobacco Use [...] Only Mammo (12/08/2008 12:00 AM EDT) Narrative [facility] - 02/23/2017 3:30 PM EDT This exam is for storage only and is auto-finalizing. Jackie Cisneros APRN IMG FILM LIBRARY ORD ERABLES NADINE Sethi documented in this encounter Visit Diagnoses Not on filedocumented in this encounter
--- OUTSIDE RECORDS SUMMARY | 2024-05-13 11:16 | XMS_ITS | Encounter Summary ---
Author Organization [facility] [place] [address] Care Team Providers Care Payroll And Benefits Assistant Name Role Phone Ana Her MD Primary Care Provider [phone] Encounter Details Date Type Department Care Team (Latest Contact Info) Description 04/03/2022 12:00 PM EST TH Visit (TeleHealth) [place] [address] Laura Will MD [facility] [place] [address] Status post repair of paraesophageal diaphragmatic hernia [...] status documented in this encounter Care Teams Payroll And Benefits Assistant Relationship Specialty Start Date End Date Ana Her MD [facility] [address] [place] [address] PCP - General 07/29/13 documented as of this encounter
--- OUTSIDE RECORDS SUMMARY | 2024-05-13 11:16 | XMS_ITS | Clinical Summary ---
Author Organization [facility] [place] [address] Care Team Providers Care Landscape Architecture Professor Name Role Phone Ana Her MD Primary Care Provider [phone] Allergies No known active allergies Medications Medication [...] the eliquis and has been managed by [facility]. She has remained in [place] over [...] and ECG with Dr. Ana Her in [place] in January She will discuss ECHO results [...] - TT3 and FT4 nl - My SENIOR WINDOWS ENGINEER colleague called and spoke with covering MD [...] history exists Medical Devices Implanted Type Area Power Generation Turbine Room Operator Device Identifier Shelf Expiration Date Model / Serial / Lot Breast Clip-02/26/20 17 Implanted: by Enzo Burkett MD (Quantity not on file) Breast Clip Left: Breast Bard - 0614 05/04/2019 [employer]OMARK ULTRACOR BREAST TISSUE MARKER ULTRASOUND ENHANCED BLANCA / / [id number] Description:BLANCA Procedures Procedure Name Priority Date/Time Associated [...] intermission coordinator current 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 inhibitor from Last [...] who have questions please contact the health client care specialist that requested your imaging first. ? Jeanine Lobato R&D ENGINEER IMG MAMMO ORD ERABLES * DXA [...] BMD measurements and plots are available in [employer] under the imaging tab. Paper copies will be sent to providers without E-[employer] access. If you have received this report without the data sheet and do not have access to [employer], please contact [facility] [place] at [phone] Thursday thru Thursday 8am-4pm. Thank you for letting us participate in the care of this patient. ??If you are a health care provider and have any questions regarding this report, please contact the number below. ??For patients who have questions please contact the health client care specialist that requested your imaging first. ? Narrative [...] BMD measurements and plots are available in ECLEARunder the imaging tab. Paper copies will be sent to providers without E- access.If you have received this report without the data sheet and do not haveaccess to E-, please contact [facility] [place] at [phone] Thursday thrriday 8am-4pm. Thank you for letting us participate in the care of this patient. If youare a health care provider and have any questions regarding this report,please contact the number below. For patients who have questions please contactthe health client care specialist that requested your imaging first. Ricky Lowry [...] Status decision made by: Patient Care Teams Landscape Architecture Professor Relationship Specialty Start Date End Date Ana Her MD [facility] [address] [place] [address] PCP - General 07/29/13
--- OUTSIDE RECORDS SUMMARY | 2024-05-13 11:16 | XMS_ITS | Encounter Summary ---
[place] [address] Care Team Providers Care Sales Development Specialist Name Role Phone Ana Her MD Primary Care Provider [phone] Encounter Details Date Type Department Care Team (Late st Contact Info) Description 10/23/2022 Telephone Mammography/[place] [phone] [place] [place] Social History Tobacco Use Types [...] filedocumented in this encounter Care Teams Sales Development Specialist Relationship Specialty Start Date End Date Ana Her MD [address] [place] [address] PCP - General 07/29/13 documented as of this encounter
--- OUTSIDE RECORDS SUMMARY | 2024-05-13 11:16 | XMS_ITS | Encounter Summary ---
Author Organization [facility] [place] [address] Care Team Providers Care Nuclear Equipment Sales Engineer Name Role Phone Ana Her MD Primary Care Provider [phone] Encounter Details Date Type Department Care Team (Late st Contact Info) Description 03/09/2022 Telephone [place] [address] Prakash Mendez MD [facility] [place] [address] Social History Tobacco Use Types Packs/Day Years [...] the mobile number listed in her chart ([phone]). Her other daughter answered the phone and reported that she had just dropped her off in the Emergency Department at [facility] and parked the car. She was walking back to the building to be with her. I reassured her that going to the Emergency Department seemed like a reasonable plan. I assured her that we are always happy to see her here at [facility] anytime and that they could call back anytime with further questions or concerns. This note will be routed to the provider mentioned above. Prakash Mendez MD documented in this encounter Plan of Treatment Not on file documented as of this encounter Visit Diagnoses Not on filedocumented in this encounter Care Teams Nuclear Equipment Sales Engineer Relationship Specialty Start Date End Date Ana Her MD [address] [place] [address] PCP - General 07/29/13 documented as of this encounter
--- OUTSIDE RECORDS SUMMARY | 2024-05-13 11:16 | XMS_ITS | Encounter Summary ---
Author Organization [facility] [place] [address] Care Team Providers Care Kitman Name Role Phone Ana Her MD Primary Care Provider Encounter Details Date Type Department Care Team (Late st Contact Info) Description 03/09/2022 11:00 PM EST Ancillary Procedure Radiology Library at [facility] [place] [address] Ana Her MD [address] [place] [address] [facility] [address] [place], [place] [id number] Social History Tobacco Use Types Packs/Day Years [...] CT Chest (03/09/2022 10:56 PM EST) Narrative [facility] - 03/09/2022 10:56 PM EST This exam is auto-finalizing. It's purpose is for storage only. Ana Her MD IM FILM LIBRARY ORD ERABLES [place], [place] documented in this encounter Visit Diagnoses Not on filedocumented in this encounter Care Teams Kitman Relationship Specialty Start Date End Date Ana Her MD [address] [facility] [address] [place] [address] PCP - General 07/29/13 documented as of this encounter
--- OUTSIDE RECORDS SUMMARY | 2024-05-13 11:16 | XMS_ITS | Encounter Summary ---
Author Organization [facility] [place] [address] Care Team Providers Care Director Digital Sales Name Role Phone Ana Her MD Primary Care Provider [phone] Encounter Details Date Type Department Care Team (Late st Contact Info) Description 03/10/2022 1:35 AM EST Ancillary Procedure Radiology Library at [facility] [place] [address] Ana Her MD [address] [place] [address] [facility] [address] [place], [place] [id number] Social History Tobacco Use Types Packs/Day Years [...] Chest (03/10/2022 1:31 AM EST) Narrative [facility] - 03/10/2022 1:31 AM EST This exam is auto-finalizing. It's purpose is for storage only. Ana Her MD IM FILM LIBRARY ORD ERABLES [place], [place] documented in this encounter Visit Diagnoses Not on filedocumented in this encounter Care Teams Director Digital Sales Relationship Specialty Start Date End Date Ana Her MD [facility] [address] [facility] 1 [place] [address] PCP - General 07/29/13 documented as of this encounter
--- OUTSIDE RECORDS SUMMARY | 2024-05-13 11:16 | XMS_ITS | Continuity of Care Document ---
Author Organization [place] [facility] [place] [address] Care Team Providers Care Photographic Spotter Name Role Phone GABINODC [employer]ic[employer] [facility] Orthopedic Surgeon [facility] Sleep Medicine [facility] Coordinator Volunteer Services Assessment No assessment recorded. Plan of Treatment Reminders Order Date Submit Date Provider Last Modified By Organization Details Last Modified Time Details Appointments Follow Up 20 2024 01:20P M Ana Wade Not available Not available Not available Lab BMP, serum or plasma 2023 024 [facility] (Registration ), [address] [place] [address] [place], [address], 04/19/2024 11:42:49 vitamin D, 25-hydrox y, total, serum 2023 024 [facility] (Registration ), [address] [place] [address] [place], [address], 04/18/2024 16:09:19 HbA1c (hemoglob in A1c), blood 2023 024 [facility] (Registration ), [address] [place] [address] [place], [address], 04/19/2024 11:39:49 TSH, serum, reflex free T4 2023 024 [facility] (Registration ), [address] [place] [address] Dr [facility] [place], [address], 04/19/2024 11:40:25 CBC 2023 024 [facility] (Registration ), [address] [place] [address] [place], [address], 04/18/2024 15:08:25 ferritin, serum or plasma 2023 024 [facility] (Registration ), [address] [place] [address] [place], [address], 04/19/2024 11:41:22 iron + total iron-bind ing capacity (TIBC), serum 2023 024 [facility] (Registration ), [address] [place] [address] [place], [address], 04/19/2024 11:43:17 Referral None recorded. Procedures None [...] humeral fracture 2023- MD [address], [place], [address] , [facility] 4 17:34:10 Hypothyr oidism 00487276 Active 1959 EVIE shaw [facility] 4 10:29:59 Essentia l hyperten jason 55375586 Active 1959 EVIE shaw [facility] 4 10:29:36 Hyperlip idemia 87523465 Active 1959 on statin MD [address], [place], [address] , [facility] 4 20:35:18 Spinal stenosis of lumbar region 88353876 Active 2012 s/p lumbar foramino parish L4 MD [address], [place], [address] , [facility] 4 20:36:41 Sleep apnea 55986278 Active 2012 on CPAP MD [address], [facility] [address] , [facility] 4 20:39:31 Gastroes ophageal reflux disease without esophagi tis 454033722 Completed 195908/12/2023 Removal Reason: resolved with surgical repair of HH MD [address], [place], [address] , [facility] 4 10:41:24 Family history of malignan t neoplasm of digestiv e organ 143384682 Active [address], [place], [address] , [facility] 4 20:37:03 Paresthe samir 84396955 Completed 201412/01/2014 11/28/19 15 - Comments only - Ana Wade MD - check B12 and folate Problem Code: R20.2; Problem Code Type: ICD-10; Not Available [facility] 3 05:53:48 Adult health examinat ion Active [address], [place], [address] , [facility] 4 20:33:34 Pre-surg ruben evaluati on [...] Code Type: ICD-10; Not Available [facility] 3 05:53:48 Localize d edema 116030324 Completed 201501/29/2016 12/13/19 16 - Comments only - Ana Wade MD - and some on left as well, will check BMP. 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 Nusrat esparza for removal. Problem Code: L72.3; Problem Code Type: ICD-10; Not Available [facility] 3 05:53:49 Chronic ulcer of foot 821679657 Completed 201601/16/2017 12/18/19 17 - Comments only - Ana Wade MD - Due to injury. This does appear to have some granulat ion tissue and to be healing. She is given a prescrip tion for Keflex to take only if erythema seems to be extendin g. Problem Code: L97.509; Problem Code Type: ICD-10; Not Available [facility] 3 05:53:49 Diarrhea 95517436 Completed 201602/10/2017 02/05/20 17 - Comments only - Ana Wade MD - Persiste nt over several months, we will collect stool for C. 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 6 mm PT1NO E2P2 poistive , HER2 negative MD [address], [place], [address] , [facility] 4 20:38:49 Pain in left lower limb 901606955 Active 2016 EVIE shaw, [facility]. 4 10:32:00 Pain in thoracic spine 087988271 Active 2016 EVIE shaw [facility]. 4 10:32:06 Spasm 23434775 Active 2017 EVIE shaw [facility]. 4 10:33:28 Abdomina l distensi on, gaseous 829762189 Completed 201703/08/2018 Problem Code: R14.0; Problem Code Type: ICD-10; Not Available [facility] 3 05:53:50 Cellulit is of toe 58401489 Completed 201808/12/2018 Problem Code: L03.039; Problem Code Type: ICD-10; Not Available [facility] 3 05:53:51 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 2018 Danica shaw, [facility] 4 14:36:02 Tachycar lea 3570665 Completed 201811/25/2018 Problem Code: R00.0; Problem Code Type: ICD-10; Not Available [facility] 3 05:53:51 Pre-surg ruben evaluati on Completed 201811/25/2018 Problem Code: Z01.818; Problem Code Type: ICD-10; Not Available [facility] 3 05:53:51 Iron deficien cy anemia 31791736 Active 2019 elevated MCV: normal B12 2021, normal folate 2018 IV iron 2023 EGD 01/2022 paraesop hageal hernia (since repaired ) colo 03/2017 normal ANA WADE MD [facility] [address], [place], [address] , [facility] 4 11:44:45 Lumbago with sciatica 561288372 Completed 201903/16/2020 02/24/20 20 - Comments only - Vy Pinon [employer] - Likely aggravat ed by increase d [...] M54.40; Problem Code Type: ICD-10; Not Available [facility] 3 05:53:52 Right side sciatica 63983482346 9101 Active 2019 EVIE shaw, [facility] 4 10:33:09 Left side sciatica 80667552133 9104 Active [address], [facility] [address] , [facility] 4 17:20:20 Diaphrag matic hernia 82987292 Completed 202108/11/2023 Removal Reason: s/p repair MD [address], [facility] [address] , [facility] 4 20:50:39 History of SARS-CoV -2 92854797915 6349707 Completed 202104/04/2022 03/21/20 22 - Comments only - Ana Wade MD - testing is negative today in the office. Still some fatigue but otherwis e recoveri ng. Did get MAB. Already had covid bivalent booster prior to illness Problem Code: Z86.16; Problem Code Type: ICD-10; Not Available [facility] 3 05:53:53 Diarrhea 84483023 Completed 202104/18/2022 Problem Code: R19.7; Problem Code Type: ICD-10; MD [address], [facility] [address] , [facility] 4 21:03:02 Radhain myla mammogra phy Completed 202208/11/[address], [facility] [address] , [facility] 4 20:36:56 Carpal tunnel syndrome of left wrist 79577245371 9102 Completed 202201/23/2023 Problem Code: G56.02; Problem Code Type: ICD-10; Not Available [facility] 4 05:37:46 Diarrhea 23223020 Active 2022 started colestip ol 01/2023 ANA WADE MD [address], [place], [address] , [facility] 4 21:03:02 Carpal tunnel syndrome of right wrist 53209966186 9108 Completed 201803/19/2020 Problem Code: G56.01; Problem Code Type: ICD-10; Not Available [facility] 3 05:53:55 Pain of left knee joint 02961447460 4107 Completed 202107/30/2022 Problem Code: M25.562; Problem Code Type: ICD-10; Not Available [facility] 3 05:53:55 Hypersom korina 56798875 Completed 201311/27/2014 Problem Code: 780.54; Problem Code Type: ICD-9; Not Available [facility] 3 05:53:56 Screenin g for disorder Completed 201909/11/2021 Problem Code: Z13.9; Problem Code Type: ICD-10; Not Available [facility] 3 05:53:56 Anemia 293634029 Completed 201903/19/2020 Problem Code: D64.9; Problem Code Type: ICD-10; Not Available [facility] 3 05:53:56 Long-ter m current use of anticoag ulant 564058683 Completed 201709/01/2018 Problem Code: Z79.01; Problem Code Type: ICD-10; Not Available [facility] 3 05:53:57 Chronic rhinitis 60973543 Completed 202108/12/2021 Problem Code: J31.0; Problem Code Type: ICD-10; Not Available [facility] 3 05:53:57 Impaired fasting glycemia 715028827 Completed 201401/28/2023 Not Available [facility] 3 05:53:57 Fatigue 73757729 Completed 201903/19/2020 Problem Code: R53.83; Problem Code Type: ICD-10; Not Available [facility] 3 05:53:58 Upper respirat ory tract infectio n caused by Influenz a A 96756913914 9104 Completed 201707/02/2017 Problem Code: J09.x2; Problem Code Type: ICD-10; Not Available [facility] 3 05:53:59 Diarrhea 27112383 Completed 201709/01/2018 ANA WADE MD [facility] [address], [place], [address] [facility] 4 21:03:02 Acute upper respirat ory infectio n 78341879 Completed 202108/26/2021 Problem Code: J06.9; Problem Code Type: ICD-10; Not Available [facility] 3 05:53:59 Pain in right foot 97863580168 9107 Completed 202207/30/2022 Problem Code: M79.671; Problem Code Type: ICD-10; Not Available [facility] 3 05:54:00 Breast composit ion 083276648 Completed 201601/28/2023 Not Available [facility] 3 05:54:00 Changes in skin texture 952782572 Completed 202207/30/2022 Problem Code: R23.4; Problem Code Type: ICD-10; Not Available [facility] 3 05:54:01 Spasm 06393912 Completed 201603/23/2017 Problem Code: R25.2; Problem Code Type: ICD-10; EVIE shaw [facility] 4 10:33:28 Hyperten sive disorder 55644963 Completed 11/28/19 15 - Comments only - Ana Wade MD - [facility] ed, no change in medicati ons Not Available [facility] 3 05:54:03 Arthralg ia of the ankle and/or foot 631348361 Completed 201501/30/2016 Problem Code: M25.571; Problem Code Type: ICD-10; Not Available [facility] 3 05:54:03 Dyspnea 109693739 Completed 201903/19/2020 Problem Code: R06.02; Problem Code Type: ICD-10; Danica Felix [facility] 4 14:39:47 Trigger finger of right hand 06534194431 924388 Completed 201803/19/2020 Problem Code: M65.341; Problem Code Type: ICD-10; Not Available [facility] 3 05:54:06 Cough 12110719 Completed 202108/12/2021 Problem Code: R05.1; Problem Code Type: ICD-10; Not Available [facility] 3 05:54:06 At risk - finding 371325878 Completed 201811/11/2018 Problem Code: Z91.89; Problem Code Type: ICD-10; Not Available [facility] 3 05:54:06 Cough 17381200 Completed 201706/15/2017 Problem Code: R05; Problem Code Type: ICD-10; Not Available [facility] 3 05:54:07 Preopera tive cardiova scular examinat ion Completed 202112/18/2021 Problem Code: Z01.810; Problem Code Type: ICD-10; Not Available [facility] 3 05:54:08 Arterial bruit 48821696 Completed 202109/11/2021 Not Available [facility] 3 05:54:08 Gastroes ophageal reflux disease 162784152 Completed Not Available [facility] 3 05:54:09 Imaging of musculos keletal system abnormal 714455815 Completed 201603/23/2017 Problem Code: R93.7; Problem Code Type: ICD-10; Not Available [facility] 3 05:54:10 Blood glucose outside referenc e range 804980587 Completed 201503/20/2016 Problem Code: R73.09; Problem Code Type: ICD-10; Not Available [facility] 3 05:54:10 Abdomina l aortic aneurysm 595825976 Completed 195912/04/2014 Not Available [facility] 3 05:54:11 Lung field abnormal 625577174 Completed 202109/11/2021 Problem Code: R91.8; Problem Code Type: ICD-10; Not Available [facility] 3 05:54:11 Ingrowin g nail 126399702 Completed 201503/23/2017 Problem Code: L60.0; Problem Code Type: ICD-10; Not Available [facility] 3 05:54:11 Hypokale karyn 50095548 Completed 201504/17/2016 Problem Code: E87.6; Problem Code Type: ICD-10; Not Available [facility] 3 05:54:12 Spasm 07491375 Completed 202201/23/2023 Problem Code: M62.838; Problem Code Type: ICD-10; EVIE shaw, [facility]. 4 10:33:28 Aneurysm of ascendin g aorta 900236253 Active 2023 ANA WADE MD [address], [place], [address] , [facility]. 4 19:24:51 Bicuspid aortic valve 11755762 Active 2023 severe by ECHO 07/2023 ANA WADE MD [address], [place], [address] , [facility]. 4 19:33:10 Osteopen ia 568290856 Active 2023 EVIE shaw, [facility]. 4 10:28:13 Venous stasis 33799406 Active 2023 EVIE shaw [facility]. 4 10:29:14 Chronic kidney disease 788028742 Active 2017 Stage 3bA1v eGFR 42-[address], [place] [address] , [facility] 4 20:49:29 Dyspnea on exertion 26978070 Active 2018 Danica shaw, [facility] 4 14:39:44 Hiatal hernia 84256181 Completed 202108/11/2023 lap repair MD [address], [place] [address] , [facility] 4 20:51:15 Edema of lower extremit y 521552798 Active [address], [place] [address] , [facility] 4 20:55:49 Atrial fibrilla tion 30086426 Active 2016 s/p pulmonoa ry vein isolatio n 05/2018, chronic anticoag ulation with Xarelto MD [address], [place] [address] , [facility] 4 09:14:08 Obesity 872278404 Active [address], [place] [address] , [facility] 4 09:26:22 Cardiac pacemake r in situ 314200117 Active 2023 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 MD [address], [place] [address] , [facility] 4 09:13:49 Swelling of bilatera l lower limbs 756984424 Active [address], [place], [address] , [facility] 14:35:13 Problem Notes None recorded. Procedures Surgical History Date Name Laterality Status Provider Name and Address Organization Details Recorded Time 10/26/19 cardiac pacemaker procedure completed MD [address], [place], [address], [facility] 03/16/2024 16:33:27 10/20/19 transcatheter aortic valve implantation completed MD [address], [facility] [address], [facility] 03/16/2024 16:32:53 Imaging Results None recorded. Procedure Notes None recorded. Medical Equipment None Reported. Allergies Allergen ID Allergen Name Allergen Category Reaction Reaction Severity Criticality Documentation Date Start Date Code Code System Note Provider Name and Address Organization Details Recorded Time 43107 amlodipin e medicatio n swelling severe high 11/18/2023 09972 RxNorm Shaneka Herrera [facility], [facility] 13:47:28 Medications [...] 1 tab by mouth daily 06/02 [facility] Not Available [...] Status Never Smoker KRYSTAL SKELTON LPN null, [place] - [facility]. 08/12/2023 07:44:55 Date Of Most [...] And Wanted Help? (For Example, If You Gheens Very Nervous, Lonely, Or Blue; Got Sick [...] Details Recorded Time Pneumococcal conjugate PCV20, polysaccharide OFL102 conjugate, adjuvant, PF 4 completed MD [address], [address] 08/12/2023 11:52:18 COVID-19, mRNA, LNP-S, PF, vanda-sucrose, 30 mcg/0.3 mL 4 completed MD [address], [address] 08/12/2023 11:52:18 COVID-19, mRNA, LNP-S, PF, vanda-sucrose, 30 mcg/0.3 mL 4 completed MD [address], [address] 03/04/2024 15:04:49 Tdap 1 completed Not Available [facility] 03/13/2023 06:18:37 Tdap 1 completed Not Available [facility] 03/13/2023 06:18:37 zoster live 5 completed Not Available [facility] 03/13/2023 06:18:37 Influenza, high-dose, trivalent, PF 8 completed Not Available [facility] 03/13/2023 06:18:38 Influenza, split virus, trivalent, preservative 6 completed Not Available [facility] 03/13/2023 06:18:38 Pneumococcal Conjugate, unspecified formulation 5 completed Not Available [facility] 03/13/2023 06:18:38 Influenza, split virus, quadrivalent, preservative 7 completed Not Available [facility] 03/13/2023 06:18:38 Influenza, high-dose, quadrivalent, PF 2 completed Not Available [facility] 03/13/2023 06:18:38 Influenza, high-dose, quadrivalent, PF 1 completed Not Available [facility] 03/13/2023 06:18:38 Influenza, high-dose, quadrivalent, PF 0 completed Not Available [facility] 03/13/2023 06:18:38 COVID-19, mRNA, LNP-S, PF, 100 mcg/0.5mL dose or 50 mcg/0.25mL dose 1 completed Not Available [facility] 03/13/2023 06:18:38 COVID-19, mRNA, LNP-S, PF, 100 mcg/0.5mL dose or 50 mcg/0.25mL dose 1 completed Not Available [facility] 03/13/2023 06:18:39 COVID-19, mRNA, LNP-S, PF, 100 mcg/0.5mL dose or 50 mcg/0.25mL dose 1 completed Not Available [facility] 03/13/2023 06:18:39 COVID-19, mRNA, LNP-S, bivalent, PF, 30 mcg/0.3 mL dose 2 completed Not Available [facility] 03/13/2023 06:18:39 pneumococcal polysaccharide PPV23 1 completed Not Available [facility] 03/13/2023 06:18:39 influenza, unspecified formulation 6 completed Not Available [facility] 03/13/2023 06:18:39 influenza, unspecified formulation 4 completed Not Available [facility] 03/13/2023 06:18:39 Influenza, high-dose, quadrivalent, PF 3 completed Not Available [facility] 05/15/2023 05:33:16 Past Encounters Encounter ID Performer Location Encounter Start Date Encounter Closed Date Diagnosis/Indication Diagnosis SNOMED-CT Code Diagnosis ICD10 Code Diagnosis Note [id number] Samantha Razo RN [address] [place] [facility] [place] [address] 04/18/2024 10:14:04 04/18/2024 10:46:21 Osteoporotic fracture 13158064 M80.00XD Hypothyroidism 76267989 E03.9 Iron defic iency anemia 00481701 D50.9 Chronic ki dney disease 352971915 N18.9 Prediabetes 153525843 R7 3.03 Health Concerns Section Related Observation LastModified by Organization Detai ls LastModified Time None Recorded Concern Status LastModified by Organization Details LastModified Time None Recorded Payers Encounter Date Sequence Insurance Name Policy Number Policy Palacio Covered Member ID Palacio Member ID Guarantor Name 04/18/2024 1 [place] [employer] Digna Olson [id number] Digna Olson 04/18/2024 2 [place] [facility] [id number] Digna Olson [id number] Digna Olson OBGyn Episode No OBEpisode recorded.
--- OUTSIDE RECORDS SUMMARY | 2024-05-13 11:16 | XMS_ITS | Encounter Summary ---
[place] [address] Care Team Providers Care Cloth Covered Helmet Puller Name Role Phone Ana Her MD Primary Care Provider [phone] Encounter Details Date Type Department Care Team (Late st Contact Info) Description 02/03/2023 Telephone [place] [id number] Maryam Barrett Social History Tobacco Use Types [...] filedocumented in this encounter Care Teams Cloth Covered Helmet Puller Relationship Specialty Start Date End Date Ana Her MD [address] [place] [address] PCP - General 07/29/13 documented as of this encounter
--- OUTSIDE RECORDS SUMMARY | 2024-05-13 11:16 | XMS_ITS | Data Portability ---
Author Organization [place] - [facility], [facility] Address [facility] [place] [address] Care Team Providers Care Donor Services Specialist Name Role Phone GABINODC Talent Associate [facility] Orthopedic Surgeon [facility] Sleep Medicine [facility] Chemical Educator Assessment Encounter Date Assessment Date Assessment LastModified by Organization Details LastModified Time 10/14/2023 10/14/2023 Patient presents for pre-op evaluation. The patient is a suitable candidate for the planned procedure. Their chronic medical problems are optimized Further preoperative evaluation is not needed. BMP and CBC are drawn today. The total time devoted to today's encounter, including both the zvdk-ow-whif time with the patient and/or family/caregive r and zee-xxyk-nn-fac e time I personally spent is 30 minutes. Not available 10/14/2023 11:57:30 12/02/2023 12/02/2023 The total time devoted to today's encounter, including both the wzpw-qt-chsi time with the patient and/or family/caregive r and blh-koxk-wa-fac e time I personally spent is 35 minutes. Not available 12/02/2023 14:47:23 03/04/2024 03/04/2024 The total time devoted to today's encounter, including both the ccnk-dc-ilbj time with the patient and/or family/caregive r and dqk-dyln-dh-fac e time I personally spent is 44 minutes. Not available 03/04/2024 17:47:18 Plan of Treatment Reminders Order Date Submit Date Provider Last Modified By Organization Details Last Modified Time Details Appointments Follow Up 2024 01:20P Allan Her Not available Not available Not available Lab CBC 2023 024 [facility] (Registration ), [address] [place] [address] [place], [address], 10/14/2023 15:11:07 BMP, serum or plasma 2023 024 [facility] (Registration ), [address] [place] [address] [place], [address], 10/14/2023 17:41:37 BMP, serum or plasma 2023 024 [facility] (Registration ), [address] [place] [address] [place], [address], 12/30/2023 08:56:49 magnesium , serum or plasma 2023 024 [facility] (Registration ), [address] [place] [address] [place], [address], 12/09/2023 07:38:05 BNP (B-type natriuret ic peptide), serum or plasma 2023 024 [facility] (Registration ), [address] [place] [address] [place], [address], 12/03/2023 20:48:47 CBC 2023 024 [facility] (Registration ), [address] [place] [address] [place], [address], 12/02/2023 16:35:23 BMP, serum or plasma 2023 024 [facility] (Registration ), [address] [place] [address] [place], [address], 04/19/2024 11:42:49 vitamin D, 25-hydrox y, total, serum 2023 024 [facility] (Registration ), [address] [place] [address] [place], [address], 04/18/2024 16:09:19 HbA1c (hemoglob in A1c), blood 2023 [facility] (Registration ), [address] [place] [address] [place], [address], 04/19/2024 11:39:49 TSH, serum, reflex free T4 2023 [facility] (Registration ), [address] [place] [address] [place], [address], 04/19/2024 11:40:25 CBC 2023 [facility] (Registration ), [address] [place] [address] [place], [address], 04/18/2024 15:08:25 ferritin, serum or plasma 2023 [facility] (Registration ), [address] [place] [address] [place], [address], 04/19/2024 11:41:22 iron + total iron-bind ing capacity (TIBC), serum 2023 [facility] (Registration ), [address] [place] [address] [place], [address], 04/19/2024 11:43:17 BMP, serum or plasma 2023 024 [facility] (Registration ), [address] [place] [address] [place], [address], 04/19/2024 11:42:49 vitamin D, 25-hydrox y, total, serum 2023 [facility] (Registration ), [address] [place] [address] [place], [address], 04/18/2024 16:09:19 HbA1c (hemoglob in A1c), blood 2023 024 [facility] (Registration ), [address] [place] [address] [place], [address], 04/19/2024 11:39:49 TSH, serum, reflex free T4 2023 024 [facility] (Registration ), [address] [place] [address] [place], [address], 04/19/2024 11:40:25 CBC 2023 024 [facility] (Registration ), [address] [place] [address] [place], [address], 04/18/2024 15:08:25 ferritin, serum or plasma 2023 024 [facility] (Registration ), [address] [place] [address] [place], [address], 04/19/2024 11:41:22 iron + total iron-bind ing capacity (TIBC), serum 2023 024 [facility] (Registration ), [address] [place] [address] [place], [address], 04/19/2024 11:43:17 Referral None recorded. Procedures None recorded. Surgeries None recorded. Imaging electroca rdiogram 2023 024 [facility], [address], [place], [address], 10/14/2023 11:56:21 Medication Orders tramadol 50 mg tablet 2023 024 [facility], [address] [facility], [place], [address], 02/19/2024 13:12:28 furosemid e 80 mg tablet 2023 024 [facility], [address] [place] [address], [address], [place], [address], 03/04/2024 14:49:38 spironola ctone 25 mg tablet [address], [address] [place] [address], [facility] [address], [address], 12/02/2023 12:50:28 lisinopri l 5 mg tablet 2023 024 [facility], [address] [place] [address], [facility] [address], [place], [address], 02/19/2024 13:19:32 carvedilo l 25 mg tablet 2023 [facility], [address] [place] [address], [address], [place], [address], 04/29/2024 12:42:49 hydromorp ricky 2 mg tablet 2023 024 [facility], [address] [place], [address], 03/04/2024 15:12:30 levothyro xine 75 mcg tablet [address] [facility], [address] [place], [address], 03/04/2024 16:32:19 Patient TargetsNo targets recorded. Patient InstructionsNo instructions recorded. 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 None Reported. Results Created Date Observation Date Name Description Value Unit Range Abnormal Flag Note LastModifiedBy Organization Detail LastModifiedTime 10/14/19 24 10/14/2023 COMPL ETE BLOOD COUNT NO DIFF WBC 8.22 10_3/ uL 4.4-10 .8 normal Not Available [facility] [address] [place], [address] 10/14/2023 15:11:07 10/14/19 24 10/14/2023 COMPL ETE BLOOD COUNT NO DIFF RBC 3.22 10_6/ uL 3.93-5 .22 low Not Available [address] [place], [address] 10/14/2023 15:11:07 10/14/19 24 10/14/2023 COMPL ETE BLOOD COUNT NO DIFF HGB 10.9 g/dL 11.2-1 5.7 low Not Available [address] [place], [address] 10/14/2023 15:11:07 10/14/19 24 10/14/2023 COMPL ETE BLOOD COUNT NO DIFF HCT 32.5 % 36.0-4 6.0 low Not Available [address] [place], [address] 10/14/2023 15:11:07 10/14/19 24 10/14/2023 COMPL ETE BLOOD COUNT NO DIFF MCV 101 fL 80-95 high Not Available Ethel [address] [place], [address] 10/14/2023 15:11:07 10/14/19 24 10/14/2023 COMPL ETE BLOOD COUNT NO DIFF MCH 33.9 pg 27.0-3 3.0 high Not Available [address] [place], [address] 10/14/2023 15:11:07 10/14/19 24 10/14/2023 COMPL ETE BLOOD COUNT NO DIFF MCHC 33.5 % 32.0-3 6.0 normal Not Available [address] [place], [address] 10/14/2023 15:11:07 10/14/19 24 10/14/2023 COMPL ETE BLOOD COUNT NO DIFF RDW 13.9 % 11.7-1 4.6 normal Not Available [address] [place], [address] 10/14/2023 15:11:07 10/14/19 24 10/14/2023 COMPL ETE BLOOD COUNT NO DIFF platelet count 133 10_3/ uL 130-40 0 normal Not Available [address] [place], [address] 10/14/2023 15:11:07 10/14/19 24 10/14/2023 COMPL ETE BLOOD COUNT NO DIFF MPV 12.8 fL 8.0-11 .0 high Not Available [address] [place], [address] 10/14/2023 15:11:07 10/14/19 24 10/14/2023 BASIC METAB OLIC PANEL calcium 9.3 mg/dL 8.5-10 .1 normal Not Available [facility] (Registration ) [address] [place] [address] [place], [address], 10/14/2023 15:19:07 10/14/19 24 10/14/2023 BASIC METAB OLIC PANEL glucose 105 mg/dL 74-106 normal Not Available [facility] (Registration ) [address] [place] [address] [place], [address], 10/14/2023 15:19:07 10/14/19 24 10/14/2023 BASIC METAB OLIC PANEL BUN 49 mg/dL 7-18 high Not Available [facility] (Registration ) [address] [place] [address] [place], [address], 10/14/2023 15:19:07 10/14/19 24 10/14/2023 BASIC METAB OLIC PANEL creatinine 1.9 mg/dL 0.55-1 .02 high Not Available [facility] (Registration ) [address] [place] [address] [place], [address], 10/14/2023 15:19:07 10/14/19 24 10/14/2023 BASIC METAB [...] young er-ag ed adult s. Not Available [facility] (Registration ) [address] [place] [address] [place], [address], 10/14/2023 15:19:07 10/14/19 24 10/14/2023 BASIC METAB OLIC PANEL sodium 137 mmol/ L 136-14 5 normal Not Available [facility] (Registration ) [address] [place] [address] [place], [address], 10/14/2023 15:19:07 10/14/19 24 10/14/2023 BASIC METAB OLIC PANEL potassium 5.1 mmol/ L 3.5-5. 1 normal Not Available [facility] (Registration ) [address] [place] [address] [place], [address], 10/14/2023 15:19:07 10/14/19 24 10/14/2023 BASIC METAB OLIC PANEL chloride 104 mmol/ L 98-107 normal Not Available [facility] (Registration ) [address] [place] [address] [place], [address], 10/14/2023 15:19:07 10/14/19 24 10/14/2023 BASIC METAB OLIC PANEL CO2 20.3 mmol/ L 21.0-3 2.0 low Not Available [facility] (Registration ) [address] [place] [address] [place], [address], 10/14/2023 15:19:07 10/14/19 24 10/14/2023 BASIC METAB OLIC PANEL anion gap 12.7 mmol/ L 3-11 high Not Available [facility] (Registration ) [address] [place] [address] [place], [address], 10/14/2023 15:19:07 11/18/19 24 11/18/2023 LACTA TE lactate 1.0 mmol/ L 0.6-1. 4 normal Not Available [address] [place], [address] 11/18/2023 15:53:33 11/18/19 24 11/18/2023 COMPL ETE BLOOD COUNT W/DIF F WBC 8.69 10_3/ uL 4.4-10 .8 normal Not Available [address] [place], [address] 11/18/2023 15:57:13 11/18/19 24 11/18/2023 COMPL ETE BLOOD COUNT W/DIF F RBC 3.16 10_6/ uL 3.93-5 .22 low Not Available [address] [place], [address] 11/18/2023 15:57:13 11/18/19 24 11/18/2023 COMPL ETE BLOOD COUNT W/DIF F HGB 10.7 g/dL 11.2-1 5.7 low Not Available [address] [place], [address] 11/18/2023 15:57:13 11/18/19 24 11/18/2023 COMPL ETE BLOOD COUNT W/DIF F HCT 33.0 % 36.0-4 6.0 low Not Available [address] [place], [address] 11/18/2023 15:57:13 11/18/19 24 11/18/2023 COMPL ETE BLOOD COUNT W/DIF F MCV 104 fL 80-95 high Not Available [address] [place], [address] 11/18/2023 15:57:13 11/18/19 24 11/18/2023 COMPL ETE BLOOD COUNT W/DIF F MCH 33.9 pg 27.0-3 3.0 high Not Available [address] [place], [address] 11/18/2023 15:57:13 11/18/19 24 11/18/2023 COMPL ETE BLOOD COUNT W/DIF F MCHC 32.4 % 32.0-3 6.0 normal Not Available [address] [place], [address] 11/18/2023 15:57:13 11/18/19 24 11/18/2023 COMPL ETE BLOOD COUNT W/DIF F RDW 14.6 % 11.7-1 4.6 normal Not Available [address] [place], [address] 11/18/2023 15:57:13 11/18/19 24 11/18/2023 COMPL ETE BLOOD COUNT W/DIF F platelet count 134 10_3/ uL 130-40 0 normal Not Available [address] [place], [address] 11/18/2023 15:57:13 11/18/19 24 11/18/2023 COMPL ETE BLOOD COUNT W/DIF F MPV 11.2 fL 8.0-11 .0 high Not Available [address] [place], [address] 11/18/2023 15:57:13 11/18/19 24 11/18/2023 COMPL ETE BLOOD COUNT W/DIF F neutrophils % 74.8 % Not Available [address] [place], [address] 11/18/2023 15:57:13 11/18/19 24 11/18/2023 COMPL ETE BLOOD COUNT W/DIF F lymphocytes % 13.2 % Not Available [address] [place], [address] 11/18/2023 15:57:13 11/18/19 24 11/18/2023 COMPL ETE BLOOD COUNT W/DIF F monocytes % 5.9 % Not Available [address] [place], [address] 11/18/2023 15:57:13 11/18/19 24 11/18/2023 COMPL ETE BLOOD COUNT W/DIF F eosinophils % 5.2 % Not Available [address] [place], [address] 11/18/2023 15:57:13 11/18/19 24 11/18/2023 COMPL ETE BLOOD COUNT W/DIF F basophils % 0.6 % Not Available [address] [place], [address] 11/18/2023 15:57:13 11/18/19 24 11/18/2023 COMPL ETE BLOOD COUNT W/DIF F immature grans % 0.3 % Not Available Ariela avitia [address] [place], [address] 11/18/2023 15:57:13 11/18/19 24 11/18/2023 COMPL ETE BLOOD COUNT W/DIF F nucleated RBC 0.0 % 0.0-0. 3 normal Not Available [address] [place], [address] 11/18/2023 15:57:13 11/18/19 24 11/18/2023 COMPL ETE BLOOD COUNT W/DIF F absolute neutrophil count 6.50 10_3/ uL 1.2-6. 7 normal Not Available [address] [place], [address] 11/18/2023 15:57:13 11/18/19 24 11/18/2023 COMPL ETE BLOOD COUNT W/DIF F absolute lymphocyte count 1.15 10_3/ uL 1.2-3. 4 low Not Available [address] [place], [address] 11/18/2023 15:57:13 11/18/19 24 11/18/2023 COMPL ETE BLOOD COUNT W/DIF F absolute monocyte count 0.51 10_3/ uL 0.1-0. 8 normal Not Available [address] [place], [address] 11/18/2023 15:57:13 11/18/19 24 11/18/2023 COMPL ETE BLOOD COUNT W/DIF F absolute eosinophil count 0.45 10_3/ uL 0.0-0. 7 normal Not Available [address] [place], [address] 11/18/2023 15:57:13 11/18/19 24 11/18/2023 COMPL ETE BLOOD COUNT W/DIF F absolute basophil count 0.05 10_3/ uL 0.0-0. 2 normal Not Available [address] [place], [address] 11/18/2023 15:57:13 11/18/19 24 11/18/2023 PROTH ROMBI N TIME prothrombin time 10.5 sec 9.1-11 .1 normal Not Available [address] [place], [address] 11/18/2023 16:14:17 11/18/19 24 11/18/2023 PROTH ROMBI N TIME INR 1.0 0.9-1. 1 normal Recom noel d INR thera peuti c range s for orall y admin ister ed drugs are as follo ws: -Jair dard Inten sity 2.0 to 3.0 -High er Inten sity 3.0 to 4.5 Not Available [address] [place], [address] 11/18/2023 16:14:17 11/18/19 24 11/18/2023 PTT ACTIV ATED PTT activated 19.6 sec 23.6-3 2.8 low Hepar in Thera peuti c Range for PTT = 52-84 secon ds New Hepar in Thera peuti c Range 06/09 Not Available [address] [place], [address] 11/18/2023 16:14:18 11/18/19 24 11/18/2023 COMPR EHENS NADEEM METAB OLIC PANEL calcium 9.0 mg/dL 8.5-10 .1 normal Not Available [address] [place], [address] 11/18/2023 16:19:21 11/18/19 24 11/18/2023 COMPR EHENS NADEEM METAB OLIC PANEL glucose 100 mg/dL 74-106 normal Not Available Ethel green [address] [place], [address] 11/18/2023 16:19:21 11/18/19 24 11/18/2023 COMPR EHENS NADEEM METAB OLIC PANEL BUN 15 mg/dL 7-18 normal Not Available Ethel green [address] [place], [address] 11/18/2023 16:19:21 11/18/19 24 11/18/2023 COMPR EHENS NADEEM METAB OLIC PANEL creatinine 1.0 mg/dL 0.55-1 .02 normal Not Available [address] [place], [address] 11/18/2023 16:19:21 11/18/19 24 11/18/2023 COMPR EHENS [...] young er-ag ed adult s. Not Available [address] [place], [address] 11/18/2023 16:19:21 11/18/19 24 11/18/2023 COMPR EHENS NADEEM METAB OLIC PANEL total protein 6.8 g/dL 6.4-8. 2 normal Not Available [address] [place], [address] 11/18/2023 16:19:21 11/18/19 24 11/18/2023 COMPR EHENS NADEEM METAB OLIC PANEL albumin 3.8 g/dL 3.4-5. 0 normal Not Available [address] [place], [address] 11/18/2023 16:19:21 11/18/19 24 11/18/2023 COMPR EHENS NADEEM METAB OLIC PANEL bilirubin, total 0.92 mg/dL 0.2-1. 0 normal Not Available [address] [place], [address] 11/18/2023 16:19:21 11/18/19 24 11/18/2023 COMPR EHENS NADEEM METAB OLIC PANEL alk phos 68 U/L 46-116 normal Not Available [address] [place], [address] 11/18/2023 16:19:21 11/18/19 24 11/18/2023 COMPR EHENS NADEEM METAB OLIC PANEL sodium 144 mmol/ L 136-14 5 normal Not Available [address] [place], [address] 11/18/2023 16:19:21 11/18/19 24 11/18/2023 COMPR EHENS NADEEM METAB OLIC PANEL potassium 3.6 mmol/ L 3.5-5. 1 normal Not Available [address] [place], [address] 11/18/2023 16:19:21 11/18/19 24 11/18/2023 COMPR EHENS NADEEM METAB OLIC PANEL chloride 106 mmol/ L 98-107 normal Not Available [address] [place], [address] 11/18/2023 16:19:21 11/18/19 24 11/18/2023 COMPR EHENS NADEEM METAB OLIC PANEL CO2 29.6 mmol/ L 21.0-3 2.0 normal Not Available [address] [place], [address] 11/18/2023 16:19:21 11/18/19 24 11/18/2023 COMPR EHENS NADEEM METAB OLIC PANEL anion gap 8.4 mmol/ L 3-11 normal Not Available [address] [place], [address] 11/18/2023 16:19:21 11/18/19 24 11/18/2023 COMPR EHENS NADEEM METAB OLIC PANEL AST 15 U/L 15-37 normal Not Available Ethel green [address] [place], [address] 11/18/2023 16:19:21 11/18/19 24 11/18/2023 COMPR EHENS NADEEM METAB OLIC PANEL ALT 16 U/L 14-59 normal Not Available Ethel green [address] [place], [address] 11/18/2023 16:19:21 11/18/19 24 11/18/2023 MAGNE SIUM magnesium 1.9 mg/dL 1.8-2. 4 normal Not Available [address] [place], [address] 11/18/2023 16:19:21 11/18/19 24 11/18/2023 LIPAS E lipase 24 U/L 16-77 normal Not Available Ethel green [address] [place], [address] 11/18/2023 16:19:22 11/18/19 24 11/18/2023 TROPO LUCIA I troponin I < 50 NG/L < or =60 Not Available [address] [place], [address] 11/18/2023 16:19:22 11/18/19 24 11/18/2023 NT-FL OBNP nt-probnp 3052 pg/mL <300 high NT-pr [...] false negat nadeem resul ts. Not Available [address] [place], [address] 11/18/2023 16:19:23 11/18/19 24 11/18/2023 TSH (W/RE F FT4) TSH (w/ref FT4) 0.49 uIU/m L 0.36-3 .74 normal Not Available [address] [place], [address] 11/18/2023 16:22:20 11/18/19 24 11/18/2023 URINA LYSIS color Yellow yellow Not Available Ethel green [address] [place], [address] 11/18/2023 19:26:06 07/17/11/18/2023 URINA LYSIS clarity Clear clear Not Available Ethel green [address] [place], [address] 11/18/2023 19:26:06 11/18/19 24 11/18/2023 URINA LYSIS specific gravity 1.015 1.005- 1.025 normal Not Available [address] [place], [address] 11/18/2023 19:26:06 11/18/19 24 11/18/2023 URINA LYSIS pH 6.5 5-8 normal Not Available Ethel green [address] [place], [address] 11/18/2023 19:26:06 11/18/19 24 11/18/2023 URINA LYSIS leukocyte esterase Small negati ve abnormal Not Available [address] [place], [address] 11/18/2023 19:26:06 11/18/19 24 11/18/2023 URINA LYSIS nitrite Negati ve negati ve Not Available [address] [place], [address] 11/18/2023 19:26:06 11/18/19 24 11/18/2023 URINA LYSIS protein Negati ve mg/dL neg-tr patrick Not Available [address] [place], [address] 11/18/2023 19:26:06 11/18/19 24 11/18/2023 URINA LYSIS glucose Negati ve mg/dL negati ve Not Available [address] [place], [address] 11/18/2023 19:26:06 11/18/19 24 11/18/2023 URINA LYSIS ketones Negati ve mg/dL negati ve Not Available [address] [place], [address] 11/18/2023 19:26:06 11/18/19 24 11/18/2023 URINA LYSIS urobilinogen 0.2 mg/dL up to 0.2 Not Available [address] [place], [address] 11/18/2023 19:26:06 11/18/19 24 11/18/2023 URINA LYSIS bilirubin Negati ve negati ve Not Available [address] [place], [address] 11/18/2023 19:26:06 11/18/19 24 11/18/2023 URINA LYSIS blood Negati ve negati ve Not Available [address] [place], [address] 11/18/2023 19:26:06 11/18/19 24 11/18/2023 URINA LYSIS color Yellow yellow Not Available Ethel green [address] [place], [address] 11/18/2023 20:30:25 11/18/19 24 11/18/2023 URINA LYSIS clarity Clear clear Not Available Ethel geren [address] [place], [address] 11/18/2023 20:30:25 11/18/19 24 11/18/2023 URINA LYSIS specific gravity 1.015 1.005- 1.025 normal Not Available [address] [place], [address] 11/18/2023 20:30:25 11/18/19 24 11/18/2023 URINA LYSIS pH 6.5 5-8 normal Not Available Ethel green [address] [place], [address] 11/18/2023 20:30:25 11/18/19 24 11/18/2023 URINA LYSIS leukocyte esterase Small negati ve abnormal Not Available [address] [place], [address] 11/18/2023 20:30:25 11/18/19 24 11/18/2023 URINA LYSIS nitrite Negati ve negati ve Not Available [address] [place], [address] 11/18/2023 20:30:25 11/18/19 24 11/18/2023 URINA LYSIS protein Negati ve mg/dL neg-tr patrick Not Available [address] [place], [address] 11/18/2023 20:30:25 11/18/19 24 11/18/2023 URINA LYSIS glucose Negati ve mg/dL negati ve Not Available [address] [place], [address] 11/18/2023 20:30:25 11/18/19 24 11/18/2023 URINA LYSIS ketones Negati ve mg/dL negati ve Not Available [address] [place], [address] 11/18/2023 20:30:25 11/18/19 24 11/18/2023 URINA LYSIS urobilinogen 0.2 mg/dL up to 0.2 Not Available [address] [place], [address] 11/18/2023 20:30:25 11/18/19 24 11/18/2023 URINA LYSIS bilirubin Negati ve negati ve Not Available [address] [place], [address] 11/18/2023 20:30:25 11/18/19 24 11/18/2023 URINA LYSIS blood Negati ve negati ve Not Available [address] [place], [address] 11/18/2023 20:30:25 11/18/19 24 11/18/2023 MICRO SCOPI C FINDI NGS WBC 3-5 hpf 0-5 Not Available Ethel green [address] [place], [address] 11/18/2023 20:30:25 11/18/19 24 11/18/2023 MICRO SCOPI C FINDI NGS RBC Negati ve hpf 0-2 Not Available Joel smith [address] [place], [address] 11/18/2023 20:30:25 11/18/19 24 11/18/2023 MICRO SCOPI C FINDI NGS epithelial cells Many hpf negati ve Not Available [address] [place], [address] 11/18/2023 20:30:25 11/18/19 24 11/18/2023 MICRO SCOPI C FINDI NGS bacteria Few hpf negati ve Not Available [address] [place], [address] 11/18/2023 20:30:25 11/18/19 24 11/18/2023 MICRO SCOPI C FINDI NGS crystals Negati ve hpf negati ve Not Available [address] [place], [address] 11/18/2023 20:30:25 11/18/19 24 11/18/2023 MICRO SCOPI C FINDI NGS mucus Trace negati ve Not Available [address] [place], [address] 11/18/2023 20:30:25 11/18/19 24 11/18/2023 MICRO SCOPI C FINDI NGS C S indicated? No Not Available [address] [place], [address] 11/18/2023 20:30:25 11/18/19 24 11/18/2023 TROPO LUCIA I troponin I < 50 NG/L < or =60 Not Available [address] [place], [address] 11/18/2023 22:25:47 11/18/19 24 11/18/2023 VENOU S BLOOD GAS pH (venous) 7.45 7.31-7 .41 high Not Available [address] [place], [address] 11/18/2023 23:12:54 11/18/19 24 11/18/2023 VENOU S BLOOD GAS pCO2 (venous) 44 mmHg 41-51 normal Not Available [address] [place], [address] 11/18/2023 23:12:54 11/18/19 24 11/18/2023 VENOU S BLOOD GAS pO2 (venous) 37 mmHg Not Available [address] [place], [address] 11/18/2023 23:12:54 11/18/19 24 11/18/2023 VENOU S BLOOD GAS TCO2 (venous) 28 mmol/ L 24-29 normal Not Available [address] [place], [address] 11/18/2023 23:12:54 11/18/19 24 11/18/2023 VENOU S BLOOD GAS HCO3 (venous) 30 mmol/ L 23-28 high Not Available [address] [place], [address] 11/18/2023 23:12:54 11/18/19 24 11/18/2023 VENOU S BLOOD GAS BE (venous) 6 mmol/ L -2-3 high Not Available [address] [place], [address] 11/18/2023 23:12:54 11/18/19 24 11/18/2023 VENOU S BLOOD GAS O2 sat (venous) 74 % Not Available Ariela avitia [address] [place], [address] 11/18/2023 23:12:54 11/19/19 24 11/19/2023 COMPL ETE BLOOD COUNT W/DIF F WBC 7.07 10_3/ uL 4.4-10 .8 normal Not Available [address] [place], [address] 11/19/2023 07:03:22 11/19/19 24 11/19/2023 COMPL ETE BLOOD COUNT W/DIF F RBC 2.93 10_6/ uL 3.93-5 .22 low Not Available [address] [place], [address] 11/19/2023 07:03:22 11/19/19 24 11/19/2023 COMPL ETE BLOOD COUNT W/DIF F HGB 9.8 g/dL 11.2-1 5.7 low Not Available [address] [place], [address] 11/19/2023 07:03:22 11/19/19 24 11/19/2023 COMPL ETE BLOOD COUNT W/DIF F HCT 30.5 % 36.0-4 6.0 low Not Available [address] [place], [address] 11/19/2023 07:03:22 11/19/19 24 11/19/2023 COMPL ETE BLOOD COUNT W/DIF F MCV 104 fL 80-95 high Not Available Ethel green [address] [place], [address] 11/19/2023 07:03:22 11/19/19 24 11/19/2023 COMPL ETE BLOOD COUNT W/DIF F MCH 33.4 pg 27.0-3 3.0 high Not Available [address] [place], [address] 11/19/2023 07:03:22 11/19/19 24 11/19/2023 COMPL ETE BLOOD COUNT W/DIF F MCHC 32.1 % 32.0-3 6.0 normal Not Available [address] [place], [address] 11/19/2023 07:03:22 11/19/19 24 11/19/2023 COMPL ETE BLOOD COUNT W/DIF F RDW 14.4 % 11.7-1 4.6 normal Not Available [address] [place], [address] 11/19/2023 07:03:22 11/19/19 24 11/19/2023 COMPL ETE BLOOD COUNT W/DIF F platelet count 112 10_3/ uL 130-40 0 low Not Available [address] [place], [address] 11/19/2023 07:03:22 11/19/19 24 11/19/2023 COMPL ETE BLOOD COUNT W/DIF F MPV 10.8 fL 8.0-11 .0 normal Not Available [address] [place], [address] 11/19/2023 07:03:22 11/19/19 24 11/19/2023 COMPL ETE BLOOD COUNT W/DIF F neutrophils % 74.3 % Not Available [address] [place], [address] 11/19/2023 07:03:22 11/19/19 24 11/19/2023 COMPL ETE BLOOD COUNT W/DIF F lymphocytes % 14.1 % Not Available [address] [place], [address] 11/19/2023 07:03:22 11/19/19 24 11/19/2023 COMPL ETE BLOOD COUNT W/DIF F monocytes % 6.5 % Not Available [address], [address] 11/19/2023 07:03:22 11/19/19 24 11/19/2023 COMPL ETE BLOOD COUNT W/DIF F eosinophils % 4.4 % Not Available [address], [address] 11/19/2023 07:03:22 11/19/19 24 11/19/2023 COMPL ETE BLOOD COUNT W/DIF F basophils % 0.4 % Not Available [address], [address] 11/19/2023 07:03:22 11/19/19 24 11/19/2023 COMPL ETE BLOOD COUNT W/DIF F immature grans % 0.3 % Not Available [address] [place], [address] 11/19/2023 07:03:22 11/19/19 24 11/19/2023 COMPL ETE BLOOD COUNT W/DIF F nucleated RBC 0.0 % 0.0-0. 3 normal Not Available [address] [place], [address] 11/19/2023 07:03:22 11/19/19 24 11/19/2023 COMPL ETE BLOOD COUNT W/DIF F absolute neutrophil count 5.25 10_3/ uL 1.2-6. 7 normal Not Available [address] [place], [address] 11/19/2023 07:03:22 11/19/19 24 11/19/2023 COMPL ETE BLOOD COUNT W/DIF F absolute lymphocyte count 1.00 10_3/ uL 1.2-3. 4 low Not Available [address] [place], [address] 11/19/2023 07:03:22 11/19/19 24 11/19/2023 COMPL ETE BLOOD COUNT W/DIF F absolute monocyte count 0.46 10_3/ uL 0.1-0. 8 normal Not Available [address] [place], [address] 11/19/2023 07:03:22 11/19/19 24 11/19/2023 COMPL ETE BLOOD COUNT W/DIF F absolute eosinophil count 0.31 10_3/ uL 0.0-0. 7 normal Not Available [address] [place], [address] 11/19/2023 07:03:22 11/19/19 24 11/19/2023 COMPL ETE BLOOD COUNT W/DIF F absolute basophil count 0.03 10_3/ uL 0.0-0. 2 normal Not Available [address] [place], [address] 11/19/2023 07:03:22 11/19/19 24 11/19/2023 IRON AND IBCT iron 45 ug/dL 50-170 low Not Available Ethel green [address] [place], [address] 11/19/2023 07:24:25 11/19/19 24 11/19/2023 IRON AND IBCT total iron binding capacity 284 ug/dL 250-45 0 normal Not Available [address] [place], [address] 11/19/2023 07:24:25 11/19/19 24 11/19/2023 IRON AND IBCT transferrin sat 16 % 15-50 normal Not Available Ariela avitia [address] [place], [address] 11/19/2023 07:24:25 11/19/19 24 11/19/2023 BASIC METAB OLIC PANEL calcium 8.5 mg/dL 8.5-10 .1 normal Not Available [address] [place], [address] 11/19/2023 07:49:36 11/19/19 24 11/19/2023 BASIC METAB OLIC PANEL glucose 93 mg/dL 74-106 normal Not Available Ethel green [address] [place], [address] 11/19/2023 07:49:36 11/19/19 24 11/19/2023 BASIC METAB OLIC PANEL BUN 12 mg/dL 7-18 normal Not Available Ethel green [address] [place], [address] 11/19/2023 07:49:36 11/19/19 24 11/19/2023 BASIC METAB OLIC PANEL creatinine 0.8 mg/dL 0.55-1 .02 normal Not Available [address] [place], [address] 11/19/2023 07:49:36 11/19/19 24 11/19/2023 BASIC METAB [...] young er-ag ed adult s. Not Available [address] [place], [address] 11/19/2023 07:49:36 11/19/19 24 11/19/2023 BASIC METAB OLIC PANEL sodium 147 mmol/ L 136-14 5 high Not Available [address] [place], [address] 11/19/2023 07:49:36 11/19/19 24 11/19/2023 BASIC METAB OLIC PANEL potassium 3.2 mmol/ L 3.5-5. 1 low Not Available [address] [place], [address] 11/19/2023 07:49:36 11/19/19 24 11/19/2023 BASIC METAB OLIC PANEL chloride 107 mmol/ L 98-107 normal Not Available [address] [place], [address] 11/19/2023 07:49:36 11/19/19 24 11/19/2023 BASIC METAB OLIC PANEL CO2 31.2 mmol/ L 21.0-3 2.0 normal Not Available [address] [place], [address] 11/19/2023 07:49:36 11/19/19 24 11/19/2023 BASIC METAB OLIC PANEL anion gap 8.8 mmol/ L 3-11 normal Not Available [address] [place], [address] 11/19/2023 07:49:36 11/19/19 24 11/19/2023 DANIEL TIN ferritin 169 NG/mL 8-252 normal Not Available [address] [place], [address] 11/19/2023 07:49:36 11/19/19 24 11/19/2023 MAGNE SIUM magnesium 1.8 mg/dL 1.8-2. 4 normal Not Available [address] [place], [address] 11/19/2023 07:49:37 11/19/19 24 11/19/2023 VITAM IN B12 vitamin B12 1124 pg/mL 193-98 6 high Not Available [address] [place], [address] 11/19/2023 07:49:37 11/19/19 24 11/19/2023 FOLAT E folate 19.3 NG/mL 8.6-20 .0 normal Not Available [address] [place], [address] 11/19/2023 07:49:37 11/19/19 24 11/20/2023 TRANS DANIEL N transferrin 188 mg/dL 201-35 2 abnormal Test perfo rmed or refer red by [facility] [address], [place] [address] Not Available [address] [place], [address] 11/23/2023 12:15:30 11/20/19 24 11/20/2023 BASIC METAB OLIC PANEL calcium 8.9 mg/dL 8.5-10 .1 normal Not Available [address] [place], [address] 11/20/2023 07:12:43 11/20/19 24 11/20/2023 BASIC METAB OLIC PANEL glucose 115 mg/dL 74-106 high Not Available Ethel green [address] [place], [address] 11/20/2023 07:12:43 11/20/19 24 11/20/2023 BASIC METAB OLIC PANEL BUN 19 mg/dL 7-18 high Not Available Ethel green [address] [place], [address] 11/20/2023 07:12:43 11/20/19 24 11/20/2023 BASIC METAB OLIC PANEL creatinine 1.0 mg/dL 0.55-1 .02 normal Not Available [address] [place], [address] 11/20/2023 07:12:43 11/20/19 24 11/20/2023 BASIC METAB [...] young er-ag ed adult s. Not Available [address] [place], [address] 11/20/2023 07:12:43 11/20/19 24 11/20/2023 BASIC METAB OLIC PANEL sodium 140 mmol/ L 136-14 5 normal Not Available [address] [place], [address] 11/20/2023 07:12:43 11/20/19 24 11/20/2023 BASIC METAB OLIC PANEL potassium 3.6 mmol/ L 3.5-5. 1 normal Not Available [address] [place], [address] 11/20/2023 07:12:43 11/20/19 24 11/20/2023 BASIC METAB OLIC PANEL chloride 100 mmol/ L 98-107 normal Not Available [address] [place], [address] 11/20/2023 07:12:43 11/20/19 24 11/20/2023 BASIC METAB OLIC PANEL CO2 33.2 mmol/ L 21.0-3 2.0 high Not Available [address] [place], [address] 11/20/2023 07:12:43 11/20/19 24 11/20/2023 BASIC METAB OLIC PANEL anion gap 6.8 mmol/ L 3-11 normal Not Available [address] [place], [address] 11/20/2023 07:12:43 12/02/19 24 12/02/2023 BASIC METAB OLIC PANEL calcium 9.8 mg/dL 8.5-10 .1 normal Not Available [address] [place], [address] 12/02/2023 16:25:21 12/02/19 24 12/02/2023 BASIC METAB OLIC PANEL glucose 104 mg/dL 74-106 normal Not Available Ethel green [address] [place], [address] 12/02/2023 16:25:21 12/02/19 24 12/02/2023 BASIC METAB OLIC PANEL BUN 20 mg/dL 7-18 high Not Available Ethel green [address] [place], [address] 12/02/2023 16:25:21 12/02/19 24 12/02/2023 BASIC METAB OLIC PANEL creatinine 1.1 mg/dL 0.55-1 .02 high Not Available [address] [place], [address] 12/02/2023 16:25:21 12/02/19 24 12/02/2023 BASIC METAB [...] young er-ag ed adult s. Not Available [address] [place], [address] 12/02/2023 16:25:21 12/02/19 24 12/02/2023 BASIC METAB OLIC PANEL sodium 143 mmol/ L 136-14 5 normal Not Available [address] [place], [address] 12/02/2023 16:25:21 12/02/19 24 12/02/2023 BASIC METAB OLIC PANEL potassium 4.6 mmol/ L 3.5-5. 1 normal Not Available [address] [place], [address] 12/02/2023 16:25:21 12/02/19 24 12/02/2023 BASIC METAB OLIC PANEL chloride 106 mmol/ L 98-107 normal Not Available [address] [place], [address] 12/02/2023 16:25:21 12/02/19 24 12/02/2023 BASIC METAB OLIC PANEL CO2 29.1 mmol/ L 21.0-3 2.0 normal Not Available [address] [place], [address] 12/02/2023 16:25:21 12/02/19 24 12/02/2023 BASIC METAB OLIC PANEL anion gap 7.9 mmol/ L 3-11 normal Not Available [address] [place], [address] 12/02/2023 16:25:21 12/02/19 24 12/02/2023 MAGNE SIUM magnesium 1.8 mg/dL 1.8-2. 4 normal Not Available [address] [place], [address] 12/02/2023 16:25:22 12/02/19 24 12/02/2023 NT-FL OBNP nt-probnp 2190 pg/mL <300 high NT-pr [...] false negat nadeem resul ts. Not Available [facility] (Registration ) [address] [place] [address] [place], [address], 12/02/2023 16:25:22 12/02/19 24 12/02/2023 COMPL ETE BLOOD COUNT NO DIFF WBC 7.43 10_3/ uL 4.4-10 .8 normal Not Available [address] [place], [address] 12/02/2023 16:35:23 12/02/19 24 12/02/2023 COMPL ETE BLOOD COUNT NO DIFF RBC 3.18 10_6/ uL 3.93-5 .22 low Not Available [address] [place], [address] 12/02/2023 16:35:23 12/02/19 24 12/02/2023 COMPL ETE BLOOD COUNT NO DIFF HGB 10.6 g/dL 11.2-1 5.7 low Not Available [address] [place], [address] 12/02/2023 16:35:23 12/02/19 24 12/02/2023 COMPL ETE BLOOD COUNT NO DIFF HCT 33.5 % 36.0-4 6.0 low Not Available [address] [place], [address] 12/02/2023 16:35:23 12/02/19 24 12/02/2023 COMPL ETE BLOOD COUNT NO DIFF MCV 105 fL 80-95 high 1+ macro cytos is Not Available [address] [place], [address] 12/02/2023 16:35:23 12/02/19 24 12/02/2023 COMPL ETE BLOOD COUNT NO DIFF MCH 33.3 pg 27.0-3 3.0 high Not Available [address] [place], [address] 12/02/2023 16:35:23 12/02/19 24 12/02/2023 COMPL ETE BLOOD COUNT NO DIFF MCHC 31.6 % 32.0-3 6.0 low Not Available [address] [place], [address] 12/02/2023 16:35:23 12/02/19 24 12/02/2023 COMPL ETE BLOOD COUNT NO DIFF RDW 13.3 % 11.7-1 4.6 normal Not Available [address] [place], [address] 12/02/2023 16:35:23 12/02/19 24 12/02/2023 COMPL ETE BLOOD COUNT NO DIFF platelet count 140 10_3/ uL 130-40 0 normal Not Available [address] [place], [address] 12/02/2023 16:35:23 12/02/19 24 12/02/2023 COMPL ETE BLOOD COUNT NO DIFF MPV 11.8 fL 8.0-11 .0 high Not Available [address] [place], [address] 12/02/2023 16:35:23 04/18/20 24 04/18/2024 COMPL ETE BLOOD COUNT NO DIFF WBC 6.58 10_3/ uL 4.4-10 .8 normal Not Available [address] [place], [address] 04/18/2024 15:08:25 04/18/20 24 04/18/2024 COMPL ETE BLOOD COUNT NO DIFF RBC 3.70 10_6/ uL 3.93-5 .22 low Not Available [address] [place], [address] 04/18/2024 15:08:25 04/18/20 24 04/18/2024 COMPL ETE BLOOD COUNT NO DIFF HGB 12.0 g/dL 11.2-1 5.7 normal Not Available [address] [place], [address] 04/18/2024 15:08:25 04/18/20 24 04/18/2024 COMPL ETE BLOOD COUNT NO DIFF HCT 38.0 % 36.0-4 6.0 normal Not Available [address] [place], [address] 04/18/2024 15:08:25 04/18/20 24 04/18/2024 COMPL ETE BLOOD COUNT NO DIFF MCV 103 fL 80-95 high Not Available [address] [place], [address] 04/18/2024 15:08:25 04/18/20 24 04/18/2024 COMPL ETE BLOOD COUNT NO DIFF MCH 32.4 pg 27.0-3 3.0 normal Not Available [address] [place], [address] 04/18/2024 15:08:25 04/18/20 24 04/18/2024 COMPL ETE BLOOD COUNT NO DIFF MCHC 31.6 % 32.0-3 6.0 low Not Available [address] [place], [address] 04/18/2024 15:08:25 04/18/20 24 04/18/2024 COMPL ETE BLOOD COUNT NO DIFF RDW 15.6 % 11.7-1 4.6 high Not Available [address] [place], [address] 04/18/2024 15:08:25 04/18/20 24 04/18/2024 COMPL ETE BLOOD COUNT NO DIFF platelet count 124 10_3/ uL 130-40 0 low Not Available [address] [place], [address] 04/18/2024 15:08:25 04/18/20 24 04/18/2024 COMPL ETE BLOOD COUNT NO DIFF MPV 11.2 fL 8.0-11 .0 high Not Available [address] [place], [address] 04/18/2024 15:08:25 04/18/20 24 04/18/2024 IRON AND IBCT iron 65 ug/dL 50-170 normal Not Available [facility] (Registration ) [address] [place] [address] [place], [address], 04/18/2024 16:07:17 04/18/20 24 04/18/2024 IRON AND IBCT total iron binding capacity 318 ug/dL 250-45 0 normal Not Available [facility] (Registration ) [address] [place] [address] [place], [address], 04/18/2024 16:07:17 04/18/20 24 04/18/2024 IRON AND IBCT transferrin sat 20 % 15-50 normal Not Available [facility] (Registration ) [address] [place] [address] [place], [address], 04/18/2024 16:07:17 04/18/20 24 04/18/2024 BASIC METAB OLIC PANEL calcium 9.4 mg/dL 8.5-10 .1 normal Not Available [facility] (Registration ) [address] [place] [address] [place], [address], 04/18/2024 16:09:17 04/18/20 24 04/18/2024 BASIC METAB OLIC PANEL glucose 103 mg/dL 74-106 normal Not Available [facility] (Registration ) [address] [place] [address] [place], [address], 04/18/2024 16:09:17 04/18/20 24 04/18/2024 BASIC METAB OLIC PANEL BUN 21 mg/dL 7-18 high Not Available [facility] (Registration ) [address] [place] [address] [place], [address], 04/18/2024 16:09:17 04/18/20 24 04/18/2024 BASIC METAB OLIC PANEL creatinine 1.0 mg/dL 0.55-1 .02 normal Not Available [facility] (Registration ) [address] [place] [address] [place], [address], 04/18/2024 16:09:17 04/18/20 24 04/18/2024 BASIC METAB [...] young er-ag ed adult s. Not Available [facility] (Registration ) [address] [place] [address] [place], [address], 04/18/2024 16:09:17 04/18/20 24 04/18/2024 BASIC METAB OLIC PANEL sodium 145 mmol/ L 136-14 5 normal Not Available [facility] (Registration ) [address] [place] [address] [place], [address], 04/18/2024 16:09:17 04/18/20 24 04/18/2024 BASIC METAB OLIC PANEL potassium 4.2 mmol/ L 3.5-5. 1 normal Not Available [facility] (Registration ) [address] [place] [address] [place], [address], 04/18/2024 16:09:17 04/18/20 24 04/18/2024 BASIC METAB OLIC PANEL chloride 107 mmol/ L 98-107 normal Not Available [facility] (Registration ) [address] [place] [address] [place], [address], 04/18/2024 16:09:17 04/18/20 24 04/18/2024 BASIC METAB OLIC PANEL CO2 31.4 mmol/ L 21.0-3 2.0 normal Not Available [facility] (Registration ) [address] [place] [address] [place], [address], 04/18/2024 16:09:17 04/18/20 24 04/18/2024 BASIC METAB OLIC PANEL anion gap 6.6 mmol/ L 3-11 normal Not Available [facility] (Registration ) [address] [place] [address] [place], [address], 04/18/2024 16:09:17 04/18/20 24 04/18/2024 DANIEL TIN ferritin 211 NG/mL 8-252 normal Not Available [facility] (Registration ) [address] [place] [address] [place], [address], 04/18/2024 16:09:18 04/18/20 24 04/18/2024 TSH (W/RE F FT4) TSH (w/ref FT4) 2.17 uIU/m L 0.36-3 .74 normal NOTE: Supra -phys iolog ic doses of Bioti n(B7) may cause false negat nadeem resul ts. Not Available [facility] (Registration ) [address] [place] [address] [place], [address], 04/18/2024 16:09:18 04/18/20 24 04/18/2024 VITAM IN D 25 TOTAL vitamin D 25 total 63.9 NG/mL 30-100 normal Refer ence Guide lines : Defic ient: <10 ng/ml Insuf ficie nt: 10-30 ng/ml Suffi cient : 30-10 0 ng/ml Toxic : >100 ng/ml Not Available [address] [place], [address] 04/18/2024 16:09:19 04/18/20 24 04/18/2024 HEMOG LOBIN [...] pleme nt 1):S1 3-s28 . Not Available [facility] (Registration ) [address] , [place], [address], 04/18/2024 16:21:24 10/14/19 24 10/14/2023 elect rocar diogr am No observ ation record ed. [facility] [address] , [place], [address], 10/14/2023 11:56:20 10/14/19 24 elect rocar diogr am No observ ation record ed. Not Available 2023 10:55:07 11/04/19 24 10/14/2023 rhyth m strip , EKG* No observ ation record ed. [email or web address] Not Available 2023 10:18:08 11/18/19 24 11/18/2023 US, duple x, lower extre mity Patien t Name: Rema Olson Unit #: [id number] Loc: ER Sonal ng Provid er: Braydon Doyle Accoun t #: [id number] Status : REG ER [facility] er: Erich Her M.D. Date of [...] tation , and color Dopple r. The discovery manager ior tibial veins are patent . [...] at the addres s above. Thank- you. [facility] [address], [place], [address] 11/18/2023 16:48:49 11/18/19 24 11/18/2023 CT imagi martin hackett Name: Rema Olson Unit #: [id number] Loc: ER Sonal salazar Provid er: Braydon Doyle Accoun t #: [id number] Status : REG ER Primar y Care [...] interl obular septal thicke jama greate r discovery manager iorly which could indica te mild CHF. No consol idatio n or domina nt measur able mass. Pleura : Small left pleura l effusi on. Heart: The heart is modera tely dilate d. Phone Circuit Operator ior perica rdial effusi on. Minima l [...] . Small perica rdial effusi on seen discovery manager iorly. Small left pleura l effusi [...] error, please notify us immedi zayly at [phone] and return the origin al report to us at the addres s above. Thank- you. [facility] [address], [place], [address] 11/19/2023 12:12:11 11/19/19 24 11/19/2023 ultra sound imagi martin hackett Name: Rema Olson Unit #: [id number] Loc: MS Sonal salazar Provid er: Huseyin Bolaños M.D. Accoun t #: [id number] Status : ADM IN Primar y [facility] er: Erich Her M.D. Date [...] at the addres s above. Thank- you. [place] [id number] [facility] [place], [address] 11/19/2023 12:12:11 01/18/20 24 11/15/2018 imagi ng/di [...] humeral fracture 2023- MD [address], [place], [address] , [facility] 4 17:34:10 Hypothyr oidism 87758268 Active 1959 EVIE shaw, [facility] 4 10:29:59 [facility] hyperten jason 76437614 Active 1959 EVIE shaw, [facility] 4 10:29:36 Hyperlip idemia 85769860 Active 1959 on statin MD [address], [place], [address] , [facility] 4 20:35:18 Spinal stenosis of lumbar region 48395299 Active 2012 s/p lumbar [place] L4 MD [address], [place], [address] , [facility] 4 20:36:41 Sleep apnea 03992967 Active 2012 on CPAP MD [address], [place], [address] , [facility] 4 20:39:31 Gastroes ophageal reflux disease without esophagi tis 840776333 Completed 195908/12/2023 Removal Reason: resolved with surgical repair of HH MD [address], [place], [address] , [facility] 4 10:41:24 Family history of malignan t neoplasm of digestiv e organ 844744567 Active [address], [place], [address] , [facility] 4 20:37:03 Paresthe samir [id number] Completed 201412/01/2014 11/28/19 15 - Comments only - Erich Her MD - check B12 and folate Problem Code: R20.2; Problem Code Type: ICD-10; Not Available [facility] 3 05:53:48 Adult health examinat ion Active [address], [place], [address] , [facility] 4 20:33:34 Pre-surg ruben evaluati [...] Z01.818; Problem Code Type: ICD-10; Not Available [facility] 3 05:53:48 Localize d edema [id number] Completed 201501/29/2016 12/13/19 16 - Comments only - Erich Her MD - and some on left as well, will check BMP. 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 Nusrat esparza for removal. Problem Code: L72.3; Problem Code Type: ICD-10; Not Available [facility] 3 05:53:49 Chronic ulcer of foot [id number] Completed 201601/16/2017 12/18/19 17 - Comments only - Erich Her MD - Due to injury. This does appear to have some granulat ion tissue and to be healing. She is given a prescrip tion for Keflex to take only if erythema seems to be extendin g. Problem Code: L97.509; Problem Code Type: ICD-10; Not Available [facility] 3 05:53:49 Diarrhea [id number] Completed 201602/10/2017 02/05/20 17 - Comments only - Erich Her MD - [facility] over several months, we will collect stool for C. 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 6 mm PT1NO E2P2 poistive , HER2 negative MD [address], [place], [address] , [facility] 4 20:38:49 Pain in left lower limb 483989549 Active 2016 EVIE shaw, [facility] 4 10:32:00 Pain in thoracic spine 982046886 Active 2016 EVIE shaw, [facility] 4 10:32:06 Spasm 10735705 Active 2017 EVIE shaw, [facility] 4 10:33:28 Abdomina l distensi on, gaseous 590608571 Completed 201703/08/2018 Problem Code: R14.0; Problem Code Type: ICD-10; Not Available [facility] 3 05:53:50 Cellulit is of toe 10272085 Completed 201808/12/2018 Problem Code: L03.039; Problem Code Type: ICD-10; Not Available [facility] 3 05:53:51 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, [facility]. 4 14:36:02 Tachsrinivas lea 0691296 Completed 201811/25/2018 Problem Code: R00.0; Problem Code Type: ICD-10; Not Available [facility] 3 05:53:51 Pre-surg ruben evaluati on Completed 201811/25/2018 Problem Code: Z01.818; Problem Code Type: ICD-10; Not Available [facility] 3 05:53:51 Iron deficien cy anemia 61916116 Active 2019 elevated MCV: normal B12 2021, normal folate 2018 IV iron 2023 EGD 01/2022 paraesop hageal hernia (since repaired ) colo 03/2017 normal ERICH HER MD [facility] [address], [place], [address] , [facility], [facility]. 4 11:44:45 Lumbago with sciatica 991148190 Completed 201903/16/2020 02/24/20 20 - Comments only - Vy Pinon [employer] - Likely aggravat ed by increase d [...] M54.40; Problem Code Type: ICD-10; Not Available [facility] 3 05:53:52 Right side sciatica 64485230320 9101 Active 2019 EVIE HOOPER colin, [facility] 4 10:33:09 Left side sciatica 43461540558 9104 Active [address], [facility] [address] , [facility] 4 17:20:20 Diaphrag matic hernia 35642502 Completed 202108/11/2023 Removal Reason: s/p repair MD [address], [facility] [address] , [facility] 4 20:50:39 History of SARS-CoV -2 [id number] 8314881 Completed 202104/04/2022 03/21/20 22 - Comments only - Erich Her MD - testing is negative today in the office. Still some fatigue but otherwis e recoveri ng. Did get MAB. Already had covid bivalent booster prior to illness Problem Code: Z86.16; Problem Code Type: ICD-10; Not Available [facility] 3 05:53:53 Diarrhea 24785947 Completed 202104/18/2022 Problem Code: R19.7; Problem Code Type: ICD-10; MD [address], [facility] [address] , [facility] 4 21:03:02 Screenin g mammogra phy Completed 202208/11/[address], [facility] [address] , [facility] 4 20:36:56 Carpal tunnel syndrome of left wrist 32867186406 9102 Completed 202201/23/2023 Problem Code: G56.02; Problem Code Type: ICD-10; Not Available [facility] 4 05:37:46 Diarrhea 25143642 Active 2022 started colestip ol 01/2023 ERICH HER MD [address], [place], [address] , [facility]. 4 21:03:02 Carpal tunnel syndrome of right wrist 55223099023 9108 Completed 201803/19/2020 Problem Code: G56.01; Problem Code Type: ICD-10; Not Available [facility] 3 05:53:55 Pain of left knee joint 94279410490 4107 Completed 202107/30/2022 Problem Code: M25.562; Problem Code Type: ICD-10; Not Available [facility] 3 05:53:55 Hypersom korina 13125830 Completed 201311/27/2014 Problem Code: 780.54; Problem Code Type: ICD-9; Not Available [facility] 3 05:53:56 Screenin g for disorder Completed 201909/11/2021 Problem Code: Z13.9; Problem Code Type: ICD-10; Not Available [facility] 3 05:53:56 Anemia 549673829 Completed 201903/19/2020 Problem Code: D64.9; Problem Code Type: ICD-10; Not Available [facility] 3 05:53:56 Long-ter m current use of anticoag ulant 763023761 Completed 201709/01/2018 Problem Code: Z79.01; Problem Code Type: ICD-10; Not Available [facility] 3 05:53:57 Chronic rhinitis 46343162 Completed 202108/12/2021 Problem Code: J31.0; Problem Code Type: ICD-10; Not Available [facility] 3 05:53:57 Impaired fasting glycemia 633463551 Completed 201401/28/2023 Not Available [facility] 3 05:53:57 Fatigue 56174086 Completed 201903/19/2020 Problem Code: R53.83; Problem Code Type: ICD-10; Not Available [facility] 3 05:53:58 Upper respirat ory tract infectio n caused by Influenz a A 45923593736 9104 Completed 201707/02/2017 Problem Code: J09.x2; Problem Code Type: ICD-10; Not Available [facility] 3 05:53:59 Diarrhea 59090125 Completed 201709/01/2018 ERICH HER MD [facility] [address], [place], [address] [facility] 4 21:03:02 Acute upper respirat ory infectio n 88036218 Completed 202108/26/2021 Problem Code: J06.9; Problem Code Type: ICD-10; Not Available [facility] 3 05:53:59 Pain in right foot 01980004966 9107 Completed 202207/30/2022 Problem Code: M79.671; Problem Code Type: ICD-10; Not Available [facility] 3 05:54:00 Breast composit ion 271479841 Completed 201601/28/2023 Not Available [facility] 3 05:54:00 Changes in skin texture 432989828 Completed 202207/30/2022 Problem Code: R23.4; Problem Code Type: ICD-10; Not Available [facility] 3 05:54:01 Spasm 90132741 Completed 201603/23/2017 Problem Code: R25.2; Problem Code Type: ICD-10; EVIE shaw [facility] 4 10:33:28 Hyperten sive disorder 68998554 Completed 11/28/19 15 - Comments only - Erich Her MD - [facility] ed, no change in medicati ons Not Available [facility] 3 05:54:03 Arthralg ia of the ankle and/or foot 795216852 Completed 201501/30/2016 Problem Code: M25.571; Problem Code Type: ICD-10; Not Available [facility] 3 05:54:03 Dyspnea 294007977 Completed 201903/19/2020 Problem Code: R06.02; Problem Code Type: ICD-10; Danica Felix [facility] 4 14:39:47 Trigger finger of right hand 76066130485 960005 Completed 201803/19/2020 Problem Code: M65.341; Problem Code Type: ICD-10; Not Available [facility] 3 05:54:06 Cough 30957211 Completed 202108/12/2021 Problem Code: R05.1; Problem Code Type: ICD-10; Not Available [facility] 3 05:54:06 At risk - finding 808653669 Completed 201811/11/2018 Problem Code: Z91.89; Problem Code Type: ICD-10; Not Available [facility] 3 05:54:06 Cough 43870939 Completed 201706/15/2017 Problem Code: R05; Problem Code Type: ICD-10; Not Available [facility] 3 05:54:07 Preopera tive cardiova scular examinat ion Completed 202112/18/2021 Problem Code: Z01.810; Problem Code Type: ICD-10; Not Available [facility] 3 05:54:08 Arterial bruit 29096527 Completed 202109/11/2021 Not Available [facility] 3 05:54:08 Gastroes ophageal reflux disease 661816243 Completed Not Available [facility] 3 05:54:09 Imaging of musculos keletal system abnormal 585253215 Completed 201603/23/2017 Problem Code: R93.7;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
--- OUTSIDE RECORDS SUMMARY | 2024-05-13 11:17 | XMS_ITS | Encounter Summary ---
Author Organization [facility] [place] [address] Care Team Providers Care Snack Bar Attendant Name Role Phone Ana Her MD Primary Care Provider [phone] Encounter Details Date Type Department Care Team (Latest Contact Info) Description 06/11/2021 8:41 AM EST - 06/11/2021 11:59 PM [facility] Hospital Encounter Mammography/[place] [phone] Jeanine Lobato APRN [facility] [place] [address] Malignant neoplasm of lower-outer quadrant of left [...] Take 40 mg by mouth daily. omega 8-ppu-ylv-fish-turm salty 417 mg-120 mg- 276 mg-600 mg [...] who have questions please contact the health childcare worker that requested your imaging first. ? Jeanine Lobato SPEECH INSTRUCTOR IMG MAMMO ORD ERABLES documented in this encounter Visit Diagnoses Diagnosis Malignant neoplasm of lower-outer quadrant of left breast of female, estrogen receptor positive Breast cancer screening by mammogram documented in this encounter Care Teams Snack Bar Attendant Relationship Specialty Start Date End Date Ana Her MD [address] [place] [address] PCP - General 07/29/13 documented as of this encounter
--- OUTSIDE RECORDS SUMMARY | 2024-05-13 11:17 | XMS_ITS | Encounter Summary ---
[place] [address] Care Team Providers Care Aquaculture Farmer Name Role Phone Ana Her MD Primary Care Provider [phone] Encounter Details Date Type Department Care Team (Late st Contact Info) Description 01/08/2022 7:30 AM EDT - 01/08/2022 8:40 AM EDT Surgery [place] [phone] Laura Park MD [facility] [place] [address] EGD, UPPER GI ENDOSCOPY (WRVU 2.09) Social [...] a nurse in the Thoracic Clinic at [phone]. After hours or on weekends or holidays please call: [phone] and ask to speak to the Thoracic Physician senior research consultant. Diet: You should follow a clear liquid [...] - 5pm): General Surgery and Bariatric Surgery [phone] Bariatric Surgeons: Drs. Park and John [phone] [place]ing Mill Operator: [phone] Dietitians: [phone] Outside of regular business hours, including weekends and holidays: Ask for General Surgery resident senior research consultant [phone] Please note, this call will be answered [...] of left breast of female, estrogen receptor rijlpjewN50.512, Z17.0 ??? Anemia D64.9 ??? Aortic valve [...] 6.43) performed by Malika Chen MD at [facility] MAIN OR ??? PRO INTRAOP SENTINEL LYMPH ID W/DYE INJECTION Left 03/30/2017 ?? INTRAOPERATIVE ID (MAPPING) SENTINEL LYMPH NODE,INCLUDES INJECTION (WRVU 2.5) performed by Malika Chen MD at [facility] MAIN OR ??? PRO MASTECTOMY PARTIAL Left 03/30/2017 ?? MASTECTOMY PARTIAL (WRVU 10.13) performed by Malika Chen MD at [facility] MAIN OR ?? Cholecystectomy ?? [...] Park MD - 01/08/2022 7:48 AM EDT [facility] Operative Note Patient Name: Digna Olson : [id number] MR#: [id number] Case Date: 01/08/2022 Surgeon: Surgeon(s) and Role: [...] Info Order Time SPECIMEN TO PATHOLOGY Gastric [place] for H Pylori Hiatal hernia Gastric [place] for H Pylori excision 01/08/2022 8:15 AM [...] 8:14 AM EDT Upper GI Endoscopy, Diagnostic ([id number]) Yes 01/08/2022 7:40 AM EDT Hiatal hernia POCT GLUCOSE Routine 01/08/2022 6:33 AM EDT documented in this encounter Results * Specimen to Pathology (01/08/2022 8:15 AM EDT) AP Specimen 01/08/2022 8:15 AM EDT 01/08/2022 8:15 AM EDT Narrative [facility] - 01/08/2022 8:15 AM EDT Specimen requisition ordered. ??Separate Pathology report to follow Laura Park MD PATHOLOGY/CYTOLOGY ORDERABLES [facility] [place] [address] * Surgical Pathology Report (01/08/2022 8:14 AM EDT) Final Diagnosis [id number] ? Location: SDP; SD36; A The signing pathologist has (i) examined the relevant preparation(s) for the specimen(s) and (ii) rendered or confirmed the diagnosis(es). . ?Surgical Pathology DIAGNOSIS A - Gastric ??Antrum for H Pylori, excision: - ??Antrum-type mucosa with reactive gastropathy. Electronically signed by: ?Umang Raymundo MD Verified: ??01/09/2022 16:36 ??Pathologist Performed at: ??-[facility] Dept. of Pathology, [place], [place] SPECIMEN(S) SUBMITTED A - Gastric ??Antrum [...] Park MD PATHOLOGY/CYTOLOGY ORDERABLES Performing Organization Address City/State/[facility] Co de Phone Number [facility] [place] [address] * POCT Glucose (01/08/2022 6:33 AM EDT) Glucose, POC 120 65 - 199 mg/dL [facility] Comment: Supplemental ranges: <140 mg/dL before meals <180 mg/dL all other times of the day Blood 01/08/2022 6:33 AM EDT 01/08/2022 6:33 AM EDT Laura Park MD POINT OF C[place] [address] documented in this encounter Visit Diagnoses Not on filedocumented in this encounter Active and Recently Administered Medications Care Teams Aquaculture Farmer Relationship Specialty Start Date End Date Ana Her MD [address] [facility] [address] [place] [address] PCP - General 07/29/13 documented as of this encounter
--- OUTSIDE RECORDS SUMMARY | 2024-05-13 11:17 | XMS_ITS | Encounter Summary ---
[place] [address] Care Team Providers Care Domestic Technician Name Role Phone Ana Her MD Primary Care Provider [phone] Reason for Visit * Reason Comments Follow-up Encounter Details Date Type Department Care Team (Late st Contact Info) Description 11/15/2020 4:00 PM EDT Office Visit Hematology [place] [phone] Laura Joaquin PA Malignant neoplasm of lower-outer [...] ??Excision with image-guided localization ?Lymph Node Sampling: ??[place] lymph node(s) ?Specimen Laterality: ??Left Tumor [...] ??DCIS not present in specimen Lymph Nodes ?[place] Lymph Nodes: [place] lymph node biopsy performed ?Number of [place] Nodes Examined: ??3 ?Number of Lymph [...] & GI Cancers [facility] Pager - [phone] documented in this encounter Plan of Treatment Not on file documented as of this encounter Visit Diagnoses Diagnosis Malignant neoplasm of lower-outer quadrant of left breast of female, estrogen receptor positive documented in this encounter Care Teams Domestic Technician Relationship Specialty Start Date End Date Ana Her MD [address] [place] [address] PCP - General 07/29/13 documented as of this encounter
--- OUTSIDE RECORDS SUMMARY | 2024-05-13 11:17 | XMS_ITS | Encounter Summary ---
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 Results: Last DXA [...] [facility] Pager - [phone] No future appointments. documented in this encounter Plan of Treatment Not on file documented as of this encounter Visit Diagnoses Diagnosis Malignant neoplasm of lower-outer quadrant of left breast of female, estrogen receptor positive [facility] current 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 inhibitor Use of aromatase inhibitors documented in this encounter Care Teams Reconciliation Specialist Relationship Specialty Start Date End Date Ana Her MD [address] [place] [address] PCP - General 07/29/13 documented as of this encounter
--- OUTSIDE RECORDS SUMMARY | 2024-05-13 11:17 | XMS_ITS | Encounter Summary ---
Author Organization [facility] [place] [address] Care Team Providers Care Nuclear Worker Technician Name Role Phone Ana Her MD Primary Care Provider [phone] Encounter Details Date Type Department Care Team (Late st Contact Info) Description 01/08/2022 7:42 AM EDT Anesthesia [place] [address] Alisa Naqvi MD [facility] [place] [address] Anesthesia Record Procedure Summary Procedure Name Responsible [...] cephalic vein (lateral side of arm), left; vqam-lyg-axkmzt catheter system; Anatomical Landmarks; 20 gauge; Joslyn [...] Procedure Summary Date: 01/08/22 Room / Location: [facility] OR [address] [place] [address] MAIN OR Anesthesia Start: 741 Anesthesia Stop: 825 Procedure: EGD, UPPER GI ENDOSCOPY (N/A Trunk) Diagnosis: (Hiatal hernia) Surgeons: Laura Will MD Responsible Provider: Alisa Naqvi MD Anesthesia Type: general ASA Status: 3 All Anesthesia Providers: Anesthesiologist: Alisa Naqvi MD Iphone Developer: Nghia Valerio MD Vitals Value Taken Time BP 98/56 01/08/22 0823 Temp Pulse Resp SpO2 99 % 01/08/22826 Pain Level Vitals shown include unvalidated device data. Patient Location: PACU/[facility] Level of Consciousness: Conscious but Sleepy Pain [...] of left breast of female, estrogen receptor pwuztdfe56/25/2017 ??? Bicuspid aortic valve 06/10/2016 ??? Dyspnea [...] at [facility] MAIN OR Social History Tobacco [...] mg documented in this encounter Care Teams Nuclear Worker Technician Relationship Specialty Start Date End Date Ana Her MD [facility] [address] [facility] [address] [place] [address] PCP - General 07/29/13 documented as of this encounter
--- OUTSIDE RECORDS SUMMARY | 2024-05-13 11:17 | XMS_ITS | Encounter Summary ---
[place] [address] Care Team Providers Care Personnel Administrator Name Role Phone Ana Her MD Primary Care Provider Encounter Details Date Type Department Care Team (Late st Contact Info) Description 06/12/2021 Telephone [place] [phone] Chelsie Lauren Social History Tobacco Use Types [...] on filedocumented in this encounter Care Teams Personnel Administrator Relationship Specialty Start Date End Date Ana Her MD [address] [place] [address] PCP - General 07/29/13 documented as of this encounter
--- OUTSIDE RECORDS SUMMARY | 2024-05-13 11:17 | XMS_ITS | Encounter Summary ---
[place] [address] Care Team Providers Care Assistant Federal Public Defender Name Role Phone Ana Her MD Primary Care Provider [phone] Reason for Visit * Auth/Cert Specialty Diagnoses / Procedures Referred By Christiano hackett Referred To Contact Diagnoses S/P repair of paraesophageal hernia Post-Op monitoring Procedures PRO LAPARSCOPY REPAIR PARAESOPHAGEAL HERNIA INCL FUNDOPLASTY W/O MESH LAPAROSCOPIC PARAESOPHAGEAL HERNIA REPAIR W/FUNDOPLASTY, W/O MESH (WRVU 26.6) MODIFIER TOUPET FUNDOPLASTY Shania Will MD [facility] [place] [address] [facility] Referral ID Status Reason Start Date Expiration Date Visits Re quested Visits Authorized [id number] 1 1 Encounter Details Date Type Department Care Team (Latest Contact Info) Description 03/05/2022 11:55 AM EDT - 03/07/2022 10:00 AM EDT Hospital Encounter [place] [id number] Shania Will MD [facility] [place] [address] Discharge Disposition: Home Social History Tobacco Use [...] of left breast of female, estrogen receptor wzezbmldJ56.512, Z17.0 ??? Anemia D64.9 ??? Aortic valve [...] Per chart review, her creatinine levels in 8024-9770 ranged from 0.87-1.50 indicative of possible undiagnosed [...] PM Shania Will MD General Surgery at [facility] Arrive at: Production Team Manager Area [phone] Instructions Given to Patient at Discharge: Patient [...] hours please call the Surgery Clinic at [phone] before 5 PM on weekdays. For questions after hours and on weekends please call the hospital keypunch operators supervisor at [phone] and ask for the General Surgery resident pci security consultant. They may not be familiar with [...] post Sly diet, as instructed by the special education superintendent in the hospital for a period of [...] renal function. Please call the clinic at [phone] to confirm or reschedule. Future Appointments Date Time Provider Department Center 04/03/2022 12:00 PM Shania Will MD [facility] SURG [facility] General Instructions None Future Appointments and Orders Future Appointments and Orders Future Appointments Provider Department Dept Phone 04/03/2022 12:00 PM Shania Will MD General Surgery at [facility] Arrive at: Production Team Manager Area Signed: Shena Harden MD 03/07/22 7:18 AM [facility] [address] Primary [place] Physician: MD Geovany David DR [facility] [address] documented in this encounter Discharge Instructions * [...] hours please call the Surgery Clinic at [phone] before 5 PM on weekdays. For questions after hours and on weekends please call the hospital keypunch operators supervisor at [phone] and ask for the General Surgery resident pci security consultant. They may not be familiar with [...] post Sly diet, as instructed by the special education superintendent in the hospital for a period of [...] renal function. Please call the clinic at [phone] to confirm or reschedule. Future Appointments Date Time Provider Department Center 04/03/2022 12:00 PM Shania Will MD [facility] SURG [facility] documented in this [...] Ocampo RN - 03/07/2022 10:25 AM EDT [facility] Short Stay Unit Discharge Note [...] Sly Diet Education to pt Digna Olson. Veterinary Practice Manager metwith pt at bedside to deliver [...] she is noticing some overall improvement post op.Veterinary Practice Manager took note of this and encouraged [...] Perez MD 03/05/2022 Minimally Invasive Surgery Pager #[phone] * Lorrie Slater RN - 03/05/2022 6:46 [...] of left breast of female, estrogen receptor hswxegdyV49.512, Z17.0 ??? Anemia D64.9 ??? Aortic valve [...] 6.43) performed by Malika Chen MD at [facility] MAIN OR ??? PRO INTRAOP SENTINEL LYMPH ID W/DYE INJECTION Left 03/30/2017 ?? INTRAOPERATIVE ID (MAPPING) SENTINEL LYMPH NODE,INCLUDES INJECTION (WRVU 2.5) performed by Malika Chen MD at [facility] MAIN OR ??? PRO MASTECTOMY PARTIAL Left 03/30/2017 ?? MASTECTOMY PARTIAL (WRVU 10.13) performed by Malika Chen MD at [facility] MAIN OR ?? Cholecystectomy ?? [...] Operative Note Patient Name: Digna Olson : [id number] MR#: [id number] Case Date: 03/05/2022 Surgeon: Surgeon(s) and Role: [...] Flores MD - 03/05/2022 2:32 PM EDT [facility] Operative Note Patient Name: Digna Olson : [id number] MR#: [id number] Case Date: 03/05/2022 Surgeon: Surgeon(s) and Role: [...] Repair Paraesophageal Hernia Incl Fundoplasty W/O Mesh (21748) 03/05/2022 1:58 PM EDT Paraesophageal Hernia POCT GLUCOSE Routine 03/05/2022 12:18 PM EDT LAPAROSCOPIC PARAESOPHAGEAL HERNIA REPAIR W FUNDOPLASTY, W/O MESH Routine 03/05/2022 12:02 PM EDT documented in this encounter Results * (ABNORMAL) Differential, Automated (03/07/2022 5:08 AM EDT) Neutrophil % 80.0 % [facility] Neutrophil Absolute 5.30 1.70 - 6.10 x10(3)/mc L [facility] Lymph % 12.1 % [facility] Lymphocytes Abs 0.8(L) 0.9 - 3.2 x10(3)/mc L [facility] Monocyte % 7.6 % [facility] Monocyte Abs 0.5 0.3 - 0.9 x10(3)/mc L [facility] Eos % 0.0 % [facility] Eosinophils Abs 0.0 0.0 - 0.4 x10(3)/mc L [facility] Basophil % 0.0 % [facility] Baso Absolute 0.0 0.0 - 0.1 x10(3)/[facility] Immature Gran % 0.30 % [facility] Comment: Immature granulocytes(IG's)percentage and absolute count will include metamyelocytes, myelocytes, and promyelocytes. Blood smears from CBCs yielding IG's will be scanned manually for concordance. If this scan disagrees with the automated IG or if promyelocytes are noted, a manual differential will be performed. Immature Gran Absolute 0.02 0.00 - 0.04 x10(3)/[facility] Blood 03/07/2022 5:08 AM EDT 03/07/2022 5:19 AM EDT Narrative Resulting Agency Comment Spec In Lab Nino Levy MD HEMATOLOGY ORDERABLE S Performing Organization Address City/State/[facility] Co de Phone Number [facility] [place] [address] * (ABNORMAL) Hemogram (03/07/2022 5:08 AM EDT) White Blood Cell 6.6 4.0 - 9.5 x10(3)/[facility] Red Blood Cell 3.16(L) 4.00 - 5.21 x10(6)/[facility] Hemoglobin 10.7(L) 11.7 - 15.5 g/dL [facility] Hematocrit 31.7(L) 35.7 - 45.8 % [facility] Mean Cell Volume 100.3(H) 82.6 - 94.4 fL [facility] Mean Cell Hemoglobin 33.9(H) 27.1 - 32.0 pg [facility] Mean Cell Hemoglobin Concentration 33.8 31.7 - 35.0 g/dL [facility] Platelet 110(L) 145 - 357 x10(3)/[facility] RDW Standard Deviation 47.5(H) 37.0 - 46.0 fL [facility] RDW coefficient of variation 12.9 11.5 - 14.1 % [facility] Mean Platelet Volume 11.7 7.6 - 12.9 fL [facility] NRBC% auto 0.0 % [facility] NRBC Absolute 0.000 0.000 - 0.000 x10(3)/mc L [facility] Blood 03/07/2022 5:08 AM EDT 03/07/2022 5:19 AM EDT Narrative Resulting Agency Comment Spec In Lab Nino Levy MD HEMATOLOGY ORDERABLE S [facility] [place] [address] * Phosphorus (03/07/2022 5:08 AM EDT) Phosphorus 2.7 2.5 - 4.5 mg/dL [facility] Blood 03/07/2022 5:08 AM EDT 03/07/2022 5:19 AM EDT Narrative Resulting Agency Comment Spec In Lab Shania Will MD CHEMISTRY ORDERABLE S Performing Organization Address City/[facility]/ZIP Co de Phone Number [facility] [place] [address] * Magnesium (03/07/2022 5:08 AM EDT) Magnesium 0.89 0.69 - 1.07 mmol/L [facility] Blood 03/07/2022 5:08 AM EDT 03/07/2022 5:19 AM EDT Narrative Resulting Agency Comment Spec In Lab Shania Will MD CHEMISTRY ORDERABLE S [facility] [place] [address] * (ABNORMAL) Basic Metabolic Panel (non-fasting) (03/07/2022 5:08 AM EDT) Glucose 111 65 - 199 mg/dL [facility] Comment:Diabetes: >=200 mg/d L plus symptoms Blood Urea Nitrogen 22(H) 8 - 18 mg/dL [facility] [...] mmol/L [facility] Carbon Dioxide 22 22 - 31 mmol/L [facility] Anion Gap 9 5 - 15 mmol/L [facility] Calcium 9.2 8.5 - 10.5 mg/dL [facility] Est Glomerular Filtration Rate 64 >=60 mL/min/1. 73 m?? [facility] [...] Lab Shania Will [place] [address] * (ABNORMAL) Differential, Automated (03/06/2022 10:15 AM EDT) Pathologist [facility] Neutrophil % 90.7 % [facility] Neutrophil Absolute 5.79 1.70 - 6.10 x10(3)/ L [facility] Lymph % 5.0 % [facility] Lymphocytes Abs 0.3(L) 0.9 - 3.2 x10(3)/ L [facility] Monocyte % 3.8 % [facility] Monocyte Abs 0.2(L) 0.3 - 0.9 x10(3)/[facility] Eos % 0.0 % [facility] Eosinophils Abs 0.0 0.0 - 0.4 x10(3)/[facility] Basophil % 0.0 % [facility] Baso Absolute 0.0 0.0 - 0.1 x10(3)/ L [facility] Immature Gran % 0.50 % [facility] Comment: Immature granulocytes(IG's)percentage and absolute count will include metamyelocytes, myelocytes, and promyelocytes. Blood smears from CBCs yielding IG's will be scanned manually for concordance. If this scan disagrees with the automated IG or if promyelocytes are noted, a manual differential will be performed. Immature Gran Absolute 0.03 0.00 - 0.04 x10(3)/ L [facility] Blood 03/06/2022 10:1 5 AM EDT 03/06/2022 10:21 AM EDT Narrative Resulting Agency Comment Spec In Lab Maryam MUELLER [place] [address] * (ABNORMAL) Hemogram (03/06/2022 10:15 AM EDT) White Blood Cell 6.4 4.0 - 9.5 x10(3)/mc L [facility] Red Blood Cell 3.07(L) 4.00 - 5.21 x10(6)/mc L [facility] Hemoglobin 10.5(L) 11.7 - 15.5 g/dL [facility] Hematocrit 31.1(L) 35.7 - 45.8 % [facility] Mean Cell Volume 101.3(H) 82.6 - 94.4 fL [facility] Mean Cell Hemoglobin 34.2(H) 27.1 - 32.0 pg [facility] Mean Cell Hemoglobin Concentration 33.8 31.7 - 35.0 g/dL [facility] Platelet 111(L) 145 - 357 x10(3)/ L [facility] RDW Standard Deviation 47.2(H) 37.0 - 46.0 fL [facility] RDW coefficient of variation 12.9 11.5 - 14.1 % [facility] Mean Platelet Volume 11.5 7.6 - 12.9 fL [facility] NRBC% auto 0.0 % [facility] NRBC Absolute 0.000 0.000 - 0.000 x10(3)/mc L [facility] Blood 03/06/2022 10:1 5 AM EDT 03/06/2022 10:21 AM EDT Narrative Resulting Agency Comment Spec In Lab Maryam MUELLER HEMATOLOGY ORDERABL ES [facility] [place] [address] * Phosphorus (03/06/2022 10:15 AM EDT) Phosphorus 3.3 2.5 - 4.5 mg/dL [facility] Blood 03/06/2022 10:1 5 AM EDT 03/06/2022 10:21 AM EDT Narrative Resulting Agency Comment Spec In Lab Shania Will MD CHEMISTRY ORDERABLE S Performing Organization Address City/[facility]/ZIP Co de Phone Number [facility] [place] [address] * Magnesium (03/06/2022 10:15 AM EDT) Magnesium 0.69 0.69 - 1.07 mmol/L [facility] Blood 03/06/2022 10:1 5 AM EDT 03/06/2022 10:21 AM EDT Narrative Resulting Agency Comment Spec In Lab Shania Will MD CHEMISTRY ORDERABLE S Performing Organization Address [facility] Co de Phone Number [facility] [place] [address] * (ABNORMAL) Basic Metabolic Panel (non-fasting) (03/06/2022 10:15 AM EDT) Pathologist [facility] Glucose 155 65 - 199 mg/dL [facility] Comment:Diabetes: >=200 mg/d L plus symptoms Blood Urea Nitrogen 29(H) 8 - 18 mg/dL [facility] [...] mmol/L [facility] Carbon Dioxide 23 22 - 31 mmol/L [facility] Anion Gap 10 5 - 15 mmol/L [facility] Calcium 8.9 8.5 - 10.5 mg/dL [facility] Est Glomerular Filtration Rate 45(L) >=60 mL/min/1. 73 m?? [facility] [...] MD CHEMISTRY ORDERABLE S Performing Organization Address City/State/[facility] Co de Phone Number [facility] [place] [address] * (ABNORMAL) Differential, Automated (03/06/2022 4:29 AM EDT) Neutrophil % 90.5 % [facility] Neutrophil Absolute 4.47 1.70 - 6.10 x10(3)/mc L [facility] Lymph % 6.9 % [facility] Lymphocytes Abs 0.3(L) 0.9 - 3.2 x10(3)/mc L [facility] Monocyte % 2.2 % [facility] Monocyte Abs 0.1(L) 0.3 - 0.9 x10(3)/mc L [facility] Eos % 0.0 % [facility] Eosinophils Abs 0.0 0.0 - 0.4 x10(3)/mc L [facility] Basophil % 0.2 % [facility] Baso Absolute 0.0 0.0 - 0.1 x10(3)/mc L [facility] [...] Absolute 0.01 0.00 - 0.04 x10(3)/ L [facility] Blood 03/06/2022 4:29 AM EDT 03/06/2022 4:49 AM EDT Narrative Resulting Agency Comment Spec In Lab Prakash Mendez MD HEMATOLOGY ORDERABLE S [facility] [place] [address] * (ABNORMAL) Hemogram (03/06/2022 4:29 AM EDT) White Blood Cell 4.9 4.0 - 9.5 x10(3)/ L [facility] Red Blood Cell 3.08(L) 4.00 - 5.21 x10(6)/ L [facility] Hemoglobin 10.5(L) 11.7 - 15.5 g/dL [facility] Hematocrit 31.0(L) 35.7 - 45.8 % [facility] Mean Cell Volume 100.6(H) 82.6 - 94.4 fL [facility] Mean Cell Hemoglobin 34.1(H) 27.1 - 32.0 pg [facility] Mean Cell Hemoglobin Concentration 33.9 31.7 - 35.0 g/dL [facility] Platelet 104(L) 145 - 357 x10(3)/ L [facility] RDW Standard Deviation 47.5(H) 37.0 - 46.0 fL [facility] RDW coefficient of variation 12.9 11.5 - 14.1 % [facility] Mean Platelet Volume 11.8 7.6 - 12.9 fL [facility] NRBC% auto 0.0 % [facility] NRBC Absolute 0.000 0.000 - 0.000 x10(3)/mc L [facility] Blood 03/06/2022 4:29 AM EDT 03/06/2022 4:49 AM EDT Narrative Resulting Agency Comment Spec In Lab Prakash Mendez MD HEMATOLOGY ORDERABLE S [facility] [place] [address] * (ABNORMAL) Basic Metabolic Panel (non-fasting) (03/06/2022 4:29 AM EDT) Glucose 140 65 - 199 mg/dL [facility] Comment:Diabetes: >=200 mg/d L plus symptoms Blood Urea Nitrogen 31(H) 8 - 18 mg/dL [facility] [...] mmol/L [facility] Carbon Dioxide 23 22 - 31 mmol/L [facility] Anion Gap 10 5 - 15 mmol/L [facility] Calcium 9.0 8.5 - 10.5 mg/dL [facility] Est Glomerular Filtration Rate 42(L) >=60 mL/min/1. 73 m?? [facility] [...] CHEMISTRY ORDERABLE S [facility] [place] [address] * POCT Glucose (03/05/2022 12:18 PM EDT) Glucose, POC 94 65 - 199 mg/dL [facility] Comment: Supplemental ranges: <140 mg/dL before meals <180 mg/dL all other times of the day Blood 03/05/2022 12:1 8 PM EDT 03/05/2022 12:18 PM EDT Shania Will MD POINT OF CARE TEST ORDERABLES Performing Organization Address City/[facility]/ZIP Co de Phone Number [facility] [place] [address] documented in this encounter Visit Diagnoses Diagnosis [...] Unit) documented in this encounter Care Teams Assistant Federal Public Defender Relationship Specialty Start Date End Date Ana Her MD [address] [place] [address] PCP - General 07/29/13 documented as of this encounter
--- OUTSIDE RECORDS SUMMARY | 2024-05-13 11:17 | XMS_ITS | Encounter Summary ---
[place] [address] Care Team Providers Care Ethylene Oxide Panelboard Operator Name Role Phone Ana Her MD Primary Care Provider [phone] Encounter Details Date Type Department Care Team (Late st Contact Info) Description 12/17/2021 Telephone [place] [phone] Roma Estrada RN Social History Tobacco Use [...] on filedocumented in this encounter Care Teams Ethylene Oxide Panelboard Operator Relationship Specialty Start Date End Date Ana Her MD [address] [place] [address] PCP - General 07/29/13 documented as of this encounter
--- OUTSIDE RECORDS SUMMARY | 2024-05-13 11:17 | XMS_ITS | Encounter Summary ---
[place] [address] Care Team Providers Care Restaurant Hostess Name Role Phone Ana Her MD Primary Care Provider [phone] Reason for Visit * Reason Comments Follow-up Encounter Details Date Type Department Care Team (Late st Contact Info) Description 05/22/2020 11:40 AM EST Office [place] [address] Jeanine Lobato APRN [facility] [place] [address] Encounter for follow-up surveillance of breast cancer; [...] was obtained which revealed IDC which is ER/NJ positive, Her2 negative. Alma Delia opted against [...] ??Excision with image-guided localization ?Lymph Node Sampling: ??[place] lymph node(s) ?Specimen Laterality: ??Left Tumor [...] ??DCIS not present in specimen Lymph Nodes ?[place] Lymph Nodes: [place] lymph node biopsy performed ?Number of [place] Nodes Examined: ??3 ?Number of Lymph [...] herex- speak almost daily. He lives in [place] and is beginning to show early signs [...] Imaging performed (bilateral mammogram) [place] [facility] [place] shows no evidence of malignancy, BIRADS [...] available at [employer]) and [employer]. All questions were answered to the patient's satisfaction and they state understanding and agreement with today's treatment plan. They are encouraged to follow up sooner if they develop any new or concerning symptoms. Jeanine Lobato APRN Surgical Oncology P [phone] F [phone] [facility] documented in this encounter Plan [...] who have questions please contact the health housekeeper child care that requested your imaging first. ? Electronically signed by: Digna Noel MD, [facility] ([phone]), at 06/11/2021 9:20 AM Jeanine Lobato APRN [...] mammogram documented in this encounter Care Teams Restaurant Hostess Relationship Specialty Start Date End Date Ana Her MD [facility] [address] [place] [address] PCP - General 07/29/13 documented as of this encounter
--- OUTSIDE RECORDS SUMMARY | 2024-05-13 11:17 | XMS_ITS | Encounter Summary ---
Author Organization [facility] [place] [address] Care Team Providers Care Footwear Sales Representative Name Role Phone Ana Her MD Primary Care Provider [phone] 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 * Diagnostic Test (Routine) [...] Body (Generic) Ricky Lowry MD [facility] DR HEMATOLOGY/[place] [address] [facility] Rad Xray [address] [place] [address] [place] [address] Referral ID Status Reason Start Date Expiration Date V isits Requested Visits Authorized [id number] Closed Specialty Service Requested 05/22/2020 11/19/2021 1 1 Encounter Details Date Type Department Care Team (Late st Contact Info) Description 05/22/2020 1:15 PM EST Office Visit Hematology and Oncology at [facility] [place] [address] Ricky Lowry MD Malignant neoplasm of lower-outer quadrant of left breast of female, estrogen receptor positive; Osteopenia of neck of femur, unspecified laterality; senior living current 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 inhibitor [...] ??Excision with image-guided localization ?Lymph Node Sampling: ??[place] lymph node(s) ?Specimen Laterality: ??Left Tumor ?Histologic [...] ??DCIS not present in specimen Lymph Nodes ?[place] Lymph Nodes: [place] lymph node biopsy performed ?Number of [place] Nodes Examined: ??3 ?Number of Lymph Node(s) [...] BMD measurements and plots are available in [employer] under the imaging tab. Paper copies will be sent to providers without [employer] access. If you have received this report without the data sheet and do not have access to [employer], please contact [facility] at [phone] Thursday thru Thursday 8am-4pm. Thank you for letting us participate in the care of this patient. ??If you are a health care provider and have any questions regarding this report, please contact the number below. ??For patients who have questions please contact the health field care coordinator that requested your imaging first. ? Electronically signed by: Nat Epperson MD, [facility] ([phone]), at 11/19/2020 1:09 PM Narrative 11/19/2020 1:09 [...] BMD measurements and plots are available in [employer] the imaging tab. Paper copies will be sent to providers without [employer] access.If you have received this report without the data sheet and do not haveaccess to [employer], please contact Radiology Policy Analyst at [phone] Thursday thruFriday 8am-4pm. Thank you for letting us participate in the care of this patient. If youare a health care provider and have any questions regarding this report,please contact the number below. For patients who have questions please contactthe health field care coordinator that requested your imaging first. Ricky Lowry MD IMG DEXA ORDERABLES documented in this encounter Visit Diagnoses Diagnosis Malignant neoplasm of lower-outer quadrant of left breast of female, estrogen receptor positive Osteopenia of neck of femur, unspecified laterality senior living current 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 inhibitor Use of aromatase inhibitors Malignant neoplasm of lower-outer quadrant of left breast of female, estrogen receptor positive Osteopenia of neck of femur, unspecified laterality senior living current 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 inhibitor Use of aromatase inhibitors documented in this encounter Care Teams Footwear Sales Representative Relationship Specialty Start Date End Date Ana Her MD [address] [place] [address] PCP - General 07/29/13 documented as of this encounter
--- OUTSIDE RECORDS SUMMARY | 2024-05-13 11:17 | XMS_ITS | Encounter Summary ---
[place] [address] Care Team Providers Care Microfilm Clerk Name Role Phone Ana eHr MD Primary Care Provider [phone] Reason for Visit * Auth/Cert Specialty Diagnoses / Procedures Referred By Christiano hackett Referred To Contact Diagnoses S/P repair of paraesophageal hernia Post-Op monitoring Procedures PRO LAPARSCOPY REPAIR PARAESOPHAGEAL HERNIA INCL FUNDOPLASTY W/O MESH LAPAROSCOPIC PARAESOPHAGEAL HERNIA REPAIR W/FUNDOPLASTY, W/O MESH (WRVU 26.6) MODIFIER TOUPET FUNDOPLASTY Shania Will MD [facility] [place] [address] [facility] Referral ID Status Reason Start Date Expiration Date Visits Re quested Visits Authorized [id number] 1 1 Encounter Details Date Type Department Care Team (Late st Contact Info) Description 03/05/2022 12:54 PM EDT - 03/05/2022 4:55 PM EDT Surgery [place] [id number] Shania Will MD [facility] [place] [address] LAPAROSCOPIC PARAESOPHAGEAL HERNIA REPAIR W/FUNDOPLASTY, W/O MESH [...] of left breast of female, estrogen receptor [id number], Z17.0 ??? Anemia D64.9 ??? Aortic valve [...] Per chart review, her creatinine levels in 1902-9611 ranged from 0.87-1.50 indicative of possible undiagnosed [...] PM Shania Will MD General Surgery at [facility] Arrive at: [place] [place] [facility] [phone] Instructions Given to Patient at Discharge: Patient [...] hours please call the Surgery Clinic at [phone] before 5 PM on weekdays. For questions after hours and on weekends please call the hospital television equipment operator at [phone] and ask for the General Surgery resident contract runner. They may not be familiar with your [...] post Sly diet, as instructed by the supervisor garment manufacturing in the hospital for a period of [...] renal function. Please call the clinic at [phone] to confirm or reschedule. Future Appointments Date Time Provider Department Center 04/03/2022 12:00 PM Shania Will MD [facility] SURG [facility] General Instructions None Future Appointments and Orders Future Appointments and Orders Future Appointments Provider Department Dept Phone 04/03/2022 12:00 PM Shania Will MD General Surgery at [facility] Arrive at: [place] [facility] 4L [phone] Signed: Shena Harden MD 03/07/22 7:18 AM [phone] Saima Physician: MD Geovany David DR [facility] [id number] documented in this encounter Discharge Instructions * [...] hours please call the Surgery Clinic at [phone] before 5 PM on weekdays. For questions after hours and on weekends please call the hospital television equipment operator at [phone] and ask for the General Surgery resident contract runner. They may not be familiar with your [...] post Sly diet, as instructed by the supervisor garment manufacturing in the hospital for a period of [...] renal function. Please call the clinic at [phone] to confirm or reschedule. Future Appointments Date Time Provider Department Center 04/03/2022 12:00 PM Shania Will MD [facility] SURG [facility] documented in this encounter Medications at Time [...] Ocampo RN - 03/07/2022 10:25 AM EDT [facility] Short Stay Unit Discharge Note All [...] Sly Diet Education to pt Digna Olson. Pantry Goods Maker metwith pt at bedside to deliver full [...] she is noticing some overall improvement post op.Pantry Goods Maker took note of this and encouraged the [...] Department contact information provided. Pt appreciate of abstract writer's time. Nutrition to follow as needed. [...] Perez MD 03/05/2022 Minimally Invasive Surgery Pager #[phone] * Lorrie Slater RN - 03/05/2022 6:46 [...] ?? She is followed by cardiology at [facility], and is on xarelto. ?? Impression: ??Symptomatic [...] of left breast of female, estrogen receptor [id number], Z17.0 ??? Anemia D64.9 ??? Aortic valve [...] 6.43) performed by Malika Chen MD at [facility] MAIN OR ??? PRO INTRAOP SENTINEL LYMPH ID W/DYE INJECTION Left 03/30/2017 ?? INTRAOPERATIVE ID (MAPPING) SENTINEL LYMPH NODE,INCLUDES INJECTION (WRVU 2.5) performed by Malika Chen MD at [facility] MAIN OR ??? PRO MASTECTOMY PARTIAL Left 03/30/2017 ?? MASTECTOMY PARTIAL (WRVU 10.13) performed by Malika Chen MD at [facility] MAIN OR ?? Cholecystectomy ?? Medications: [...] Operative Note Patient Name: Digna Olson : [id number] MR#: [id number] Case Date: 03/05/2022 Surgeon: Surgeon(s) and Role: [...] Flores MD - 03/05/2022 2:32 PM EDT [facility] Operative Note Patient Name: Digna Olson : [id number] MR#: [id number] Case Date: 03/05/2022 Surgeon: Surgeon(s) and Role: [...] Repair Paraesophageal Hernia Incl Fundoplasty W/O Mesh (36506) 03/05/2022 1:58 PM EDT Paraesophageal Hernia POCT GLUCOSE Routine 03/05/2022 12:18 PM EDT LAPAROSCOPIC PARAESOPHAGEAL HERNIA REPAIR W FUNDOPLASTY, W/O MESH Routine 03/05/2022 12:02 PM EDT documented in this encounter Results * (ABNORMAL) Differential, Automated (03/07/2022 5:08 AM EDT) Neutrophil % 80.0 % [facility] Neutrophil Absolute 5.30 1.70 - 6.10 x10(3)/mc L [facility] Lymph % 12.1 % [facility] Lymphocytes Abs 0.8(L) 0.9 - 3.2 x10(3)/mc L [facility] Monocyte % 7.6 % [facility] Monocyte Abs 0.5 0.3 - 0.9 x10(3)/mc L [facility] Eos % 0.0 % [facility] Eosinophils Abs 0.0 0.0 - 0.4 x10(3)/[facility] Basophil % 0.0 % [facility] Baso Absolute 0.0 0.0 - 0.1 x10(3)/[facility] Immature Gran % 0.30 % [facility] Comment: Immature granulocytes(IG's)percentage and absolute count will include metamyelocytes, myelocytes, and promyelocytes. Blood smears from CBCs yielding IG's will be scanned manually for concordance. If this scan disagrees with the automated IG or if promyelocytes are noted, a manual differential will be performed. Immature Gran Absolute 0.02 0.00 - 0.04 x10(3)/[facility] Blood 03/07/2022 5:08 AM EDT 03/07/2022 5:19 AM EDT Narrative Resulting Agency Comment Spec In Lab Nino Levy MD HEMATOLOGY ORDERABLE S [facility] [place] [address] * (ABNORMAL) Hemogram (03/07/2022 5:08 AM EDT) White Blood Cell 6.6 4.0 - 9.5 x10(3)/[facility] Red Blood Cell 3.16(L) 4.00 - 5.21 x10(6)/[facility] Hemoglobin 10.7(L) 11.7 - 15.5 g/dL [facility] Hematocrit 31.7(L) 35.7 - 45.8 % [facility] Mean Cell Volume 100.3(H) 82.6 - 94.4 fL [facility] Mean Cell Hemoglobin 33.9(H) 27.1 - 32.0 pg [facility] Mean Cell Hemoglobin Concentration 33.8 31.7 - 35.0 g/dL [facility] Platelet 110(L) 145 - 357 x10(3)/mc L [facility] RDW Standard Deviation 47.5(H) 37.0 - 46.0 [facility] RDW coefficient of variation 12.9 11.5 - 14.1 % [facility] Mean Platelet Volume 11.7 7.6 - 12.9 [facility] NRBC% auto 0.0 % [facility] NRBC Absolute 0.000 0.000 - 0.000 x10(3)/mc L [facility] Blood 03/07/2022 5:08 AM EDT 03/07/2022 5:19 AM EDT Narrative Resulting Agency Comment Spec In Lab Nino Levy MD HEMATOLOGY ORDERABLE S Performing Organization Address City/[facility]/[place] [address] * Phosphorus (03/07/2022 5:08 AM EDT) Phosphorus 2.7 2.5 - 4.5 mg/dL [facility] Blood 03/07/2022 5:08 AM EDT 03/07/2022 5:19 AM EDT Narrative Resulting Agency Comment Spec In Lab Shania Will MD CHEMISTRY ORDERABLE S Performing Organization Address City/[facility]/ZIP Co de Phone Number [facility] [place] [address] * Magnesium (03/07/2022 5:08 AM EDT) Magnesium 0.89 0.69 - 1.07 mmol/L [facility] Blood 03/07/2022 5:08 AM EDT 03/07/2022 5:19 AM EDT Narrative Resulting Agency Comment Spec In Lab Shania Will MD CHEMISTRY ORDERABLE S [facility] [place] [address] * (ABNORMAL) Basic Metabolic Panel (non-fasting) (03/07/2022 5:08 AM EDT) Glucose 111 65 - 199 mg/dL [facility] Comment:Diabetes: >=200 mg/d L plus symptoms Blood Urea Nitrogen 22(H) 8 - 18 mg/dL [facility] Creatinine 0.93 0.70 - 1.20 mg/dL [facility] Sodium 131(L) 135 - 145 mmol/L [facility] Potassium 4.5 3.5 - 5.0 mmol/L [facility] Comment: Please note: ??Patients with WBC >100,000 may have falsely elevated Potassium levels. ??For accurate Potassium quantification in these patients send serum separator tube (gold top) for subsequent determinations. ??Contact the Clinical Chemistry Laboratory if there are any questions. Chloride 100 98 - 107 mmol/L [facility] Carbon Dioxide 22 22 - 31 mmol/L [facility] Anion Gap 9 5 - 15 mmol/L [facility] Calcium 9.2 8.5 - 10.5 mg/dL [facility] Est Glomerular Filtration Rate 64 >=60 mL/min/1. 73 m?? [facility] Comment: This patient's estimated GFR [...] MD CHEMISTRY ORDERABLE S Performing Organization Address City/[facility]/ZIP Co de Phone Number [facility] [place] [address] * (ABNORMAL) Differential, Automated (03/06/2022 10:15 AM EDT) Neutrophil % 90.7 % [facility] Neutrophil Absolute 5.79 1.70 - 6.10 x10(3)/mc L [facility] Lymph % 5.0 % [facility] Lymphocytes Abs 0.3(L) 0.9 - 3.2 x10(3)/mc L [facility] Monocyte % 3.8 % [facility] Monocyte Abs 0.2(L) 0.3 - 0.9 x10(3)/mc L [facility] Eos % 0.0 % [facility] Eosinophils Abs 0.0 0.0 - 0.4 x10(3)/[facility] Basophil % 0.0 % [facility] Baso Absolute 0.0 0.0 - 0.1 x10(3)/ L [facility] Immature Gran % 0.50 % [facility] Comment: Immature granulocytes(IG's)percentage and absolute count will include metamyelocytes, myelocytes, and promyelocytes. Blood smears from CBCs yielding IG's will be scanned manually for concordance. If this scan disagrees with the automated IG or if promyelocytes are noted, a manual differential will be performed. Immature Gran Absolute 0.03 0.00 - 0.04 x10(3)/mc L [facility] Blood 03/06/2022 10:1 5 AM EDT 03/06/2022 10:21 AM EDT Narrative Resulting Agency Comment Spec In Lab Maryam MUELLER HEMATOLOGY ORDERABL ES Performing Organization Address City/[facility]/ZIP Co de Phone Number [facility] [place] [address] * (ABNORMAL) Hemogram (03/06/2022 10:15 AM EDT) White Blood Cell 6.4 4.0 - 9.5 x10(3)/mc L [facility] Red Blood Cell 3.07(L) 4.00 - 5.21 x10(6)/mc L [facility] Hemoglobin 10.5(L) 11.7 - 15.5 g/dL [facility] Hematocrit 31.1(L) 35.7 - 45.8 % [facility] Mean Cell Volume 101.3(H) 82.6 - 94.4 fL [facility] Mean Cell Hemoglobin 34.2(H) 27.1 - 32.0 pg [facility] Mean Cell Hemoglobin Concentration 33.8 31.7 - 35.0 g/dL [facility] Platelet 111(L) 145 - 357 x10(3)/[facility] RDW Standard Deviation 47.2(H) 37.0 - 46.0 [facility] RDW coefficient of variation 12.9 11.5 - 14.1 % [facility] Mean Platelet Volume 11.5 7.6 - 12.9 [facility] NRBC% auto 0.0 % [facility] NRBC Absolute 0.000 0.000 - 0.000 x10(3)/ L [facility] Blood 03/06/2022 10:1 5 AM EDT 03/06/2022 10:21 AM EDT Narrative Resulting Agency Comment Spec In Lab Maryam MUELLER HEMATOLOGY ORDERABL ES [facility] [place] [address] * Phosphorus (03/06/2022 10:15 AM EDT) Phosphorus 3.3 2.5 - 4.5 mg/dL [facility] Blood 03/06/2022 10:1 5 AM EDT 03/06/2022 10:21 AM EDT Narrative Resulting Agency Comment Spec In Lab Shania Will MD CHEMISTRY ORDERABLE S [facility] [place] [address] * Magnesium (03/06/2022 10:15 AM EDT) Magnesium 0.69 0.69 - 1.07 mmol/L [facility] Blood 03/06/2022 10:1 5 AM EDT 03/06/2022 10:21 AM EDT Narrative Resulting Agency Comment Spec In Lab Shania Will MD CHEMISTRY ORDERABLE S Performing Organization Address City/[facility]/ZIP Co de Phone Number [facility] [place] [address] * (ABNORMAL) Basic Metabolic Panel (non-fasting) (03/06/2022 10:15 AM EDT) Glucose 155 65 - 199 mg/dL [facility] Comment:Diabetes: >=200 mg/d L plus symptoms Blood Urea Nitrogen 29(H) 8 - 18 mg/dL [facility] Creatinine 1.25(H) 0.70 - 1.20 mg/dL [facility] Sodium 134(L) 135 - 145 mmol/L [facility] Potassium 4.8 3.5 - 5.0 mmol/L [facility] Comment: Please note: ??Patients with WBC >100,000 may have falsely elevated Potassium levels. ??For accurate Potassium quantification in these patients send serum separator tube (gold top) for subsequent determinations. ??Contact the Clinical Chemistry Laboratory if there are any questions. Chloride 101 98 - 107 mmol/L [facility] Carbon Dioxide 23 22 - 31 mmol/L [facility] Anion Gap 10 5 - 15 mmol/L [facility] Calcium 8.9 8.5 - 10.5 mg/dL [facility] Est Glomerular Filtration Rate 45(L) >=60 mL/min/1. 73 m?? [facility] Comment: This patient's estimated GFR [...] CHEMISTRY ORDERABLE S Performing Organization Address City/State/[facility] Co de Phone Number [facility] [place] [address] * (ABNORMAL) Differential, Automated (03/06/2022 4:29 AM EDT) Neutrophil % 90.5 % [facility] Neutrophil Absolute 4.47 1.70 - 6.10 x10(3)/mc L [facility] Lymph % 6.9 % [facility] Lymphocytes Abs 0.3(L) 0.9 - 3.2 x10(3)/mc L [facility] Monocyte % 2.2 % [facility] Monocyte Abs 0.1(L) 0.3 - 0.9 x10(3)/mc L [facility] Eos % 0.0 % [facility] Eosinophils Abs 0.0 0.0 - 0.4 x10(3)/mc L [facility] Basophil % 0.2 % [facility] Baso Absolute 0.0 0.0 - 0.1 x10(3)/mc L [facility] Immature Gran % 0.20 % [facility] Comment: Immature granulocytes(IG's)percentage and absolute count will include metamyelocytes, myelocytes, and promyelocytes. Blood smears from CBCs yielding IG's will be scanned manually for concordance. If this scan disagrees with the automated IG or if promyelocytes are noted, a manual differential will be performed. Immature Gran Absolute 0.01 0.00 - 0.04 x10(3)/[facility] Blood 03/06/2022 4:29 AM EDT 03/06/2022 4:49 AM EDT Narrative Resulting Agency Comment Spec In Lab Prakash Mendez MD HEMATOLOGY ORDERABLE S [facility] [place] [address] * (ABNORMAL) Hemogram (03/06/2022 4:29 AM EDT) White Blood Cell 4.9 4.0 - 9.5 x10(3)/[facility] Red Blood Cell 3.08(L) 4.00 - 5.21 x10(6)/[facility] Hemoglobin 10.5(L) 11.7 - 15.5 g/dL [facility] Hematocrit 31.0(L) 35.7 - 45.8 % [facility] Mean Cell Volume 100.6(H) 82.6 - 94.4 fL [facility] Mean Cell Hemoglobin 34.1(H) 27.1 - 32.0 pg [facility] Mean Cell Hemoglobin Concentration 33.9 31.7 - 35.0 g/dL [facility] Platelet 104(L) 145 - 357 x10(3)/[facility] RDW Standard Deviation 47.5(H) 37.0 - 46.0 fL [facility] RDW coefficient of variation 12.9 11.5 - 14.1 % [facility] Mean Platelet Volume 11.8 7.6 - 12.9 fL [facility] NRBC% auto 0.0 % [facility] NRBC Absolute 0.000 0.000 - 0.000 x10(3)/mc L [facility] Blood 03/06/2022 4:29 AM EDT 03/06/2022 4:49 AM EDT Narrative Resulting Agency Comment Spec In Lab Prakash Mendez MD HEMATOLOGY ORDERABLE S [facility] [place] [address] * (ABNORMAL) Basic Metabolic Panel (non-fasting) (03/06/2022 4:29 AM EDT) Glucose 140 65 - 199 mg/dL [facility] Comment:Diabetes: >=200 mg/d L plus symptoms Blood Urea Nitrogen 31(H) 8 - 18 mg/dL [facility] Creatinine 1.32(H) 0.70 - 1.20 mg/dL [facility] Sodium 136 135 - 145 mmol/L [facility] Potassium 5.3(H) 3.5 - 5.0 mmol/L [facility] Comment: Please note: ??Patients with WBC >100,000 may have falsely elevated Potassium levels. ??For accurate Potassium quantification in these patients send serum separator tube (gold top) for subsequent determinations. ??Contact the Clinical Chemistry Laboratory if there are any questions. Chloride 103 98 - 107 mmol/L [facility] Carbon Dioxide 23 22 - 31 mmol/L [facility] Anion Gap 10 5 - 15 mmol/L [facility] Calcium 9.0 8.5 - 10.5 mg/dL [facility] Est Glomerular Filtration Rate 42(L) >=60 mL/min/1. 73 m?? [facility] Comment: This patient's estimated GFR [...] MD CHEMISTRY ORDERABLE S Performing Organization Address City/[facility]/ZIP Co de Phone Number [facility] [place] [address] * POCT Glucose (03/05/2022 12:18 PM EDT) Glucose, POC 94 65 - 199 mg/dL [facility] Comment: Supplemental ranges: <140 mg/dL before meals <180 mg/dL all other times of the day Blood 03/05/2022 12:1 8 PM EDT 03/05/2022 12:18 PM EDT Shania Will MD POINT OF CARE TEST ORDERABLES Performing Organization Address City/[facility]/ZIP Co de Phone Number [facility] [place] [address] documented in this encounter Visit Diagnoses Not [...] Unit) documented in this encounter Care Teams Microfilm Clerk Relationship Specialty Start Date End Date Ana Her MD [address] [place] [address] PCP - General 07/29/13 documented as of this encounter
--- OUTSIDE RECORDS SUMMARY | 2024-05-13 11:17 | XMS_ITS | Encounter Summary ---
[place] [address] Care Team Providers Care Range Conservationist Name Role Phone Ana Her MD Primary Care Provider [phone] Encounter Details Date Type Department Care Team (Late st Contact Info) Description 02/04/2022 12:00 PM EDT [place] [address] Social History Tobacco Use Types Packs/Day Years [...] on filedocumented in this encounter Care Teams Range Conservationist Relationship Specialty Start Date End Date Ana Her MD [address] [place] [address] PCP - General 07/29/13 documented as of this encounter
--- OUTSIDE RECORDS SUMMARY | 2024-05-13 11:17 | XMS_ITS | Encounter Summary ---
[place] [address] Care Team Providers Care Warehouse Consultant Name Role Phone Ana Her MD Primary Care Provider [phone] Reason for Visit * Auth/Cert Specialty Diagnoses / Procedures Referred By Christiano hackett Referred To Contact Diagnoses S/P repair of paraesophageal hernia Post-Op monitoring Procedures PRO LAPARSCOPY REPAIR PARAESOPHAGEAL HERNIA INCL FUNDOPLASTY W/O MESH LAPAROSCOPIC PARAESOPHAGEAL HERNIA REPAIR W/FUNDOPLASTY, W/O MESH (WRVU 26.6) MODIFIER TOUPET FUNDOPLASTY Laura Will MD [facility] [place] [address] [facility] Referral ID Status Reason Start Date Expiration Date Visits Re quested Visits Authorized [id number] 1 1 Encounter Details Date Type Department Care Team (Late st Contact Info) Description 03/05/2022 1:58 PM EDT Anesthesia Event [place] [id number] Alisa Naqvi MD [facility] [place] [address] Alessia Ramirez [place] [address] Anesthesia Record Procedure Summary Procedure Name Responsible [...] Procedure Summary Date: 03/05/22 Room / Location: [address] MAIN OR Anesthesia Start: 8 Anesthesia Stop: 1823 Procedures: LAPAROSCOPIC PARAESOPHAGEAL HERNIA REPAIR W/FUNDOPLASTY, W/O MESH (WRVU 26.6) (N/A Abdomen) MODIFIER TOUPET FUNDOPLASTY (N/A Abdomen) Diagnosis: (Paraesophageal Hernia) Surgeons: Laura Will MD Responsible Provider: Alisa Naqvi MD Anesthesia Type: general ASA Status: 3 All Anesthesia Providers: Anesthesiologist: Brayan Hubbard MD; Alisa Naqvi MD; Dario Franco MD Biller: Mo Vance DO Vitals Value Taken Time BP 125/75 03/05/22 1821 Temp Pulse 77 03/05/22 1823 Resp 18 03/05/22 1823 SpO2 100 % 03/05/22 182 Pain Level Vitals shown include unvalidated device data. Patient Location: PACU/MERGED WITH [facility] Level of Consciousness: Awake and Alert [...] of left breast of female, estrogen receptor rxxxxfio74/25/2017 ??? Bicuspid aortic valve 06/10/2016 ??? Dyspnea [...] 6.43) performed by Malika Chen MD at [facility] MAIN OR ??? PRO INTRAOP SENTINEL LYMPH ID W/DYE INJECTION Left 03/30/2017 INTRAOPERATIVE ID (MAPPING) SENTINEL LYMPH NODE,INCLUDES INJECTION (WRVU 2.5) performed by Malika Chen MD at [facility] MAIN OR ??? PRO MASTECTOMY PARTIAL Left 03/30/2017 MASTECTOMY PARTIAL (WRVU 10.13) performed by Malika Chen MD at [facility] MAIN OR ??? PRO UPPER GI ENDOSCOPY, DIAGNOSTIC N/A 01/08/2022 EGD, UPPER GI ENDOSCOPY performed by Laura Will MD at [facility] MAIN OR Social History Tobacco [...] Cardiac Hx: Exercise stress test 10/07/21 [facility]: Resting electrocardiogram showed atrial fibrillation, right BBB, left anterior fascicular block. Patient achieved 4.64METS, achieved 93% of predicted HR for age. Electrocardiographic portion of test negative for ischemia. MPI negative for ischemia or infarction. EF 45%. Wall motion normal. ?? Echo 06/19/21 ([facility]): normal biventricular size and function, symmetric [...] PONV ppx Mo Shreyas DO Pinky 03/04/2022 Excellence Consultant Pager #[phone] Region - Other Informed Consent: Anesthetic plan [...] (omeprazole) ?? Exercise stress test 10/07/21 [facility]: Resting electrocardiogram showed atrial fibrillation, right BBB, left anterior fascicular block. Patient achieved 4.64METS, achieved 93% of predicted HR for age. Electrocardiographic portion of test negative for ischemia. MPI negative for ischemia or infarction. EF 45%. Wall motion normal. ?? Echo 06/19/21 ([facility]): normal biventricular size and function, [...] 1 view ?? Followed by cardiology at [facility], notes under Care Everywhere. Last [...] documented in this encounter Care Teams Warehouse Consultant Relationship Specialty Start Date End Date Ana Her MD [address] [facility] [address] [place] [address] PCP - General 07/29/13 documented as of this encounter
--- OUTSIDE RECORDS SUMMARY | 2024-05-13 11:17 | XMS_ITS | Encounter Summary ---
[place] [address] Care Team Providers Care Elementary Educator Name Role Phone Ana Her MD Primary Care Provider Encounter Details Date Type Department Care Team (Late st Contact Info) Description 12/24/2021 Telephone [place] [phone] Chelsie Lauren Social History Tobacco Use Types [...] on filedocumented in this encounter Care Teams Elementary Educator Relationship Specialty Start Date End Date Ana Her MD [address] [place] [address] PCP - General 07/29/13 documented as of this encounter
--- OUTSIDE RECORDS SUMMARY | 2024-05-13 11:17 | XMS_ITS | Encounter Summary ---
Author Organization [facility] [place] [address] Care Team Providers Care Machine Sweeper Brush Maker Name Role Phone Ana Her MD Primary Care Provider [phone] Reason for Visit * Reason Comments Advice Only BBR * Consultation (Routine) - Closed Specialty Diagnoses / Procedures Referred By Christiano hackett Referred To Contact Plastic Surgery Diagnoses Malignant neoplasm of lower-outer quadrant of left breast of female, estrogen receptor positive Macromastia Jeanine Lobato APRN [facility] [place] [address] [facility] [place] [address] [place] [address] Referral ID Status Reason Start Date Expiration Date V isits Requested Visits Authorized [id number] Closed Consult, Test & Treat 06/11/2021 06/11/2022 1 1 Encounter Details Date Type Department Care Team (Late st Contact Info) Description 07/09/2021 8:30 AM EST Office [place] [address] Med Hudson MD [facility] [place] [address] Macromastia Social History Tobacco Use [...] physical with your primary care doctor and Program Management Intern clearance Two Weeks prior to Surgery Do [...] For questions pertaining to your surgical date [phone] For nursing related questions [phone] On weekends, holidays or after office hours: Call and ask the fun house operator to page the Plastic Surgery Resident plant protection officer. documented in this encounter Progress Notes * [...] and was normal. This was performed at [facility] [place]. She has completed a [...] the time Conservative Therapy Treatments: [facility] PLASTICS CONSERVATIVE THERAPY TREATMENTS 07/09/2021 Physical [...] at [facility] MAIN OR Family History Problem [...] revisions for scarring or asymmetry.) Garcia or Grandy Pattern Incision: More scarring on breast, but [...] Timeframe: Elective Procedure: Bilateral breast reduction CPT: 40472 Surgical Technique: Garcia, Pedicle Surgical site: Breasts Side: Bilateral Anesthesia: General Follow up: 1 day for drain removal; 7-10 days for HCK PAT: H+P PCP, Cardiac clearance. Need to discontinue blood thinners pre-op? Xarelto documented in this encounter Plan of Treatment Not on file documented as of this encounter Visit Diagnoses Diagnosis Macromastia Hypertrophy of breast documented in this encounter Care Teams Machine Sweeper Brush Maker Relationship Specialty Start Date End Date Ana Her MD [address] [place] [address] PCP - General 07/29/13 documented as of this encounter
--- OUTSIDE RECORDS SUMMARY | 2024-05-13 11:17 | XMS_ITS | Encounter Summary ---
[place] [address] Care Team Providers Care Switchboard Wirer Name Role Phone Ana Her MD Primary Care Provider [phone] Encounter Details Date Type Department Care Team (Late st Contact Info) Description 02/26/2022 Orders [place] [address] Alicia Manning RN Social History Tobacco Use [...] on filedocumented in this encounter Care Teams Switchboard Wirer Relationship Specialty Start Date End Date Ana Her MD [address] [place] [address] PCP - General 07/29/13 documented as of this encounter
--- OUTSIDE RECORDS SUMMARY | 2024-05-13 11:17 | XMS_ITS | Encounter Summary ---
[place] [address] Care Team Providers Care Commercial Truck Driver Name Role Phone Ana Her MD Primary Care Provider Encounter Details Date Type Department Care Team (Late st Contact Info) Description 06/12/2021 Telephone [place] [phone] Chelsie Lauren Social History Tobacco Use Types [...] filedocumented in this encounter Care Teams Commercial Truck Driver Relationship Specialty Start Date End Date Ana Her MD [address] [place] [address] PCP - General 07/29/13 documented as of this encounter
--- OUTSIDE RECORDS SUMMARY | 2024-05-13 11:17 | XMS_ITS | Encounter Summary ---
Author Organization [facility] Address [facility] [place] [address] Care Team Providers Care Assistant Elementary Teacher Name Role Phone Ana Her MD Primary Care Provider [phone] Encounter Details Date Type Department Care Team (Late st Contact Info) Description 09/03/2021 Ancillary Procedure Radiology Library at [facility] [place] [address] Laura Will MD [facility] [place] [address] Social History Tobacco Use Types Packs/Day Years [...] CT Chest (09/03/2021 12:00 AM EDT) Narrative [facility] [place] 11/28/2021 1:22 PM EDT This exam is auto-finalizing. It's purpose is for storage only. Laura Will MD IMG FILM LIBRARY OR DERABLES Performing Organization Address City/State/[facility] Co de Phone Number [place], [place] documented in this encounter Visit Diagnoses Not on filedocumented in this encounter Care Teams Assistant Elementary Teacher Relationship Specialty Start Date End Date Ana Her MD [address] [facility] 1 [place] [address] PCP - General 07/29/13 documented as of this encounter
--- OUTSIDE RECORDS SUMMARY | 2024-05-13 11:17 | XMS_ITS | Encounter Summary ---
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 omega 1-kvn-xbk-fish-turm salty 417 mg-120 mg- 276 mg-600 mg [...] Osteopenia of neck of femur, unspecified laterality termite helper current 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 inhibitor documented [...] BMD measurements and plots are available in [employer] under the imaging tab. Paper copies will be sent to providers without E- access. If you have received this report without the data sheet and do not have access to [employer], please contact Radiology Wildlife And Game Protector at [phone] Thursday thru Thursday 8am-4pm. Thank you for letting us participate in the care of this patient. ??If you are a health care provider and have any questions regarding this report, please contact the number below. ??For patients who have questions please contact the health geriatric personal care aide that requested your imaging first. ? Narrative [...] BMD measurements and plots are available in [employer]under the imaging tab. Paper copies will be sent to providers without - access.If you have received this report without the data sheet and do not haveaccess to [facility], please contact Radiology Wildlife And Game Protector at [phone] Thursday thrrid 8am-4pm. Thank you for letting us participate in the care of this patient. If youare a health care provider and have any questions regarding this report,please contact the number below. For patients who have questions please contactthe health geriatric personal care aide that requested your imaging first. Ricky Lowry MD IMG DEXA ORDERABLES documented in this encounter Visit Diagnoses Diagnosis Malignant neoplasm of lower-outer quadrant of left breast of female, estrogen receptor positive Osteopenia of neck of femur, unspecified laterality termite helper current 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 inhibitor Use of aromatase inhibitors documented in this encounter Care Teams Duct Layer Supervisor Relationship Specialty Start Date End Date Ana Her MD [address] [place] [address] PCP - General 07/29/13 documented as of this encounter
--- OUTSIDE RECORDS SUMMARY | 2024-05-13 11:17 | XMS_ITS | Encounter Summary ---
[place] [address] Care Team Providers Care Telesales Manager Name Role Phone Ana Her MD Primary Care Provider [phone] 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 * Consultation (Routine) - Closed Specialty Diagnoses / Procedures Referred By Christiano hackett Referred To Contact Plastic Surgery Diagnoses Malignant neoplasm of lower-outer quadrant of left breast of female, estrogen receptor positive Macromastia Jeanine Lobato APRN [facility] [place] [address] [facility] Plastic [place]urg [address] [address] Referral ID Status Reason Start Date Expiration Date V isits Requested Visits Authorized [id number] Closed Consult, Test & Treat 06/11/2021 06/11/2022 1 1 Encounter Details Date Type Department Care Team (Late st Contact Info) Description 06/11/2021 10:00 AM EST Office [place] [address] Jeanine Lobato APRN [facility] [place] [address] Encounter for follow-up surveillance of [...] this encounter Progress Notes * Jeanine Lobato, AIR QUALITY TECHNICIAN - 06/11/2021 10:00 AM EST Images [...] was obtained which revealed IDC which is ER/AR positive, Her2 negative. Alma Delia opted against [...] mm Grade Intermediate Margins Negative ER Positive AR Positive HER-2 Negative OncotypeDx Recurrence Score N/A [...] Family history of ovarian cancer No Ashkenazi Christian heritage No Known genetic mutation Not tested [...] Early 40's?, Maternal Cousin (Nel): 60s, MaternalCousin (Dairo): Whipple surgery Prostate Cancer (2) Maternal Cousin [...] situation. Results: Imaging performed (bilateral mammogram) at [facility] today shows no evidence [...] free apps for your cell phone from [employer] ([employer]) and [employer] (apartum). All questions were answered to the patient's satisfaction and they state understanding and agreement with today's treatment plan. They are encouraged to follow up sooner if they develop any new or concerning symptoms. Jeanine Lobato APRN Surgical Oncology P [phone] F [phone] [facility] documented in this encounter Plan [...] breast documented in this encounter Care Teams Telesales Manager Relationship Specialty Start Date End Date Ana Her MD [address] [place] [address] PCP - General 07/29/13 documented as of this encounter
--- OUTSIDE RECORDS SUMMARY | 2024-05-13 11:17 | XMS_ITS | Encounter Summary ---
[place] [address] Care Team Providers Care Auto Inspection Specialist Name Role Phone Ana Her MD Primary Care Provider 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 * Consultation (Routine) - Closed Specialty Diagnoses / Procedures Referred By Christiano hackett Referred To Contact General Surgery Diagnoses Hiatal hernia Ana Her MD [address] [place] [address] [facility] Gen Surgery [address] [place] [phone] Referral ID Status Reason Start Date Expiration Date V isits Requested Visits Authorized [id number] Closed Consult, Test & Treat 09/23/2021 09/23/2022 6 6 Encounter Details Date Type Department Care Team (Late st Contact Info) Description 09/23/2021 Transcribe Orders eDH Incoming Referrals [phone] Ana Her MD [address] [place] [address] Hiatal hernia Social History Tobacco [...] gangrene documented in this encounter Care Teams Auto Inspection Specialist Relationship Specialty Start Date End Date Ana Her MD [address] [place] [address] PCP - General 07/29/13 documented as of this encounter
--- OUTSIDE RECORDS SUMMARY | 2024-05-13 11:17 | XMS_ITS | Encounter Summary ---
Author Organization [facility] [place] [address] Care Team Providers Care Farmer Vegetable Name Role Phone Ana Her MD Primary Care Provider [phone] Reason for Visit * Consultation (Routine) - Closed Specialty Diagnoses / Procedures Referred By Christiano hackett Referred To Contact General Surgery Diagnoses Hiatal hernia Ana Her MD [address] [place] [address] [facility] [place] [facility] [address] [place] [address] Referral ID Status Reason Start Date Expiration Date V isits Requested Visits Authorized [id number] Closed Consult, Test & Treat 09/23/2021 09/23/2022 6 6 Encounter Details Date Type Department Care Team (Latest Contact Info) Description 12/05/2021 3:00 PM EDT Office [place] [address] Laura Will MD [facility] [place] [address] Paraesophageal hernia Social History Tobacco [...] of left breast of female, estrogen receptor [id number], Z17.0 ??? Anemia D64.9 ??? Aortic valve [...] at [facility] MAIN OR ??? PRO MASTECTOMY PARTIAL Left 03/30/2017 MASTECTOMY PARTIAL (WRVU 10.13) performed by Malika Chen MD at [facility] MAIN OR Cholecystectomy Medications: Current Outpatient Medications: [...] gangrene documented in this encounter Care Teams Farmer Vegetable Relationship Specialty Start Date End Date Ana Her MD [address] [place] [address] PCP - General 07/29/13 documented as of this encounter
--- OUTSIDE RECORDS SUMMARY | 2024-05-13 11:17 | XMS_ITS | Encounter Summary ---
[place] [address] Care Team Providers Care Air Moving Technician Name Role Phone Ana Her MD Primary Care Provider [phone] Encounter Details Date Type Department Care Team (Late st Contact Info) Description 11/01/2021 Telephone [place] [phone] Chelsie Lauren Social History Tobacco Use Types [...] filedocumented in this encounter Care Teams Air Moving Technician Relationship Specialty Start Date End Date Ana Her MD [address] [place] [address] PCP - General 07/29/13 documented as of this encounter
--- OUTSIDE RECORDS SUMMARY | 2024-05-13 11:17 | XMS_ITS | Encounter Summary ---
Author Organization [facility] [place] [address] Care Team Providers Care Knife Setter Grinder Machine Name Role Phone Ana Her MD Primary Care Provider [phone] Encounter Details Date Type Department Care Team (Latest Contact Info) Description 01/08/2022 6:11 AM EDT - 01/08/2022 9:40 AM EDT Hospital Encounter [place] [address] Laura Park MD [facility] [place] [address] Discharge Disposition: Home Social History Tobacco Use [...] a nurse in the Thoracic Clinic at [phone]. After hours or on weekends or holidays please call: [phone] and ask to speak to the Thoracic Physician distribution engineer. Diet: You should follow a clear [...] - 5pm): General Surgery and Bariatric Surgery [phone] Bariatric Surgeons: Drs. Park and John [phone] Fitness Club Manager: [phone] Dietitians: [phone] Outside of regular business hours, including weekends and holidays: Ask for General Surgery resident distribution engineer [phone] Please note, this call will be answered [...] of left breast of female, estrogen receptor taztmcrgQ05.512, Z17.0 ??? Anemia D64.9 ??? Aortic valve [...] 6.43) performed by Malika Chen MD at [facility] MAIN OR ??? PRO INTRAOP SENTINEL LYMPH ID W/DYE INJECTION Left 03/30/2017 ?? INTRAOPERATIVE ID (MAPPING) SENTINEL LYMPH NODE,INCLUDES INJECTION (WRVU 2.5) performed by Malika Chen MD at [facility] MAIN OR ??? PRO MASTECTOMY PARTIAL Left 03/30/2017 ?? MASTECTOMY PARTIAL (WRVU 10.13) performed by Malika Chen MD at [facility] MAIN OR ?? Cholecystectomy ?? [...] - 01/08/2022 7:48 AM EDT [facility] [place] Patient Name: Digna Olson : [id number] MR#: [id number] Case Date: 01/08/2022 Surgeon: Surgeon(s) and Role: [...] Info Order Time SPECIMEN TO PATHOLOGY Gastric Sabine for H Pylori Hiatal hernia Gastric Sabine for H Pylori excision 01/08/2022 8:15 AM [...] 8:14 AM EDT Upper GI Endoscopy, Diagnostic ([id number]) Yes 01/08/2022 7:40 AM EDT Hiatal hernia POCT GLUCOSE Routine 01/08/2022 6:33 AM EDT documented in this encounter Results * Specimen to Pathology (01/08/2022 8:15 AM EDT) AP Specimen 01/08/2022 8:15 AM EDT 01/08/2022 8:15 AM EDT Narrative [facility] - 01/08/2022 8:15 AM EDT Specimen requisition ordered. ??Separate Pathology report to follow Laura Park MD PATHOLOGY/CYTOLOGY ORDERABLES [facility] [place] [address] * Surgical Pathology Report (01/08/2022 8:14 AM EDT) Final Diagnosis [id number] ? Location: [facility]; A The signing pathologist has (i) examined the relevant preparation(s) for the specimen(s) and (ii) rendered or confirmed the diagnosis(es). . ?Surgical Pathology DIAGNOSIS A - Gastric ??Antrum for H Pylori, excision: - ??Antrum-type mucosa with reactive gastropathy. Electronically signed by: ?Umang Raymundo MD Verified: ??01/09/2022 16:36 ??Pathologist Performed at: ??[facility] [place]. [place], [place], [place] SPECIMEN(S) SUBMITTED A - Gastric ??Antrum for H Pylori, excision (1) CLINICAL INFORMATION Hiatal hernia SPECIMEN PROCESSING A - Labeled/Fixativ e: Gastric antrum for H. pylori, formalin. Quantity/Size: Single, 0.3 cm. Tissue Description: Soft, pink tissue. Sections/Proces sing: Submitted en toto ??in 1 cassette labeled A1. ??sns 01/09/2022 4:36 PM EDT [facility] GI Biopsy 01/08/2022 8:14 AM EDT 01/08/2022 8:14 AM EDT Laura Park MD PATHOLOGY/CYTOLOGY ORDERABLES [facility] [place] [address] * POCT Glucose (01/08/2022 6:33 AM EDT) Glucose, POC 120 65 - 199 mg/dL [facility] Comment: Supplemental ranges: <140 mg/dL before meals <180 mg/dL all other times of the day Blood 01/08/2022 6:33 AM EDT 01/08/2022 6:33 AM EDT Laura Park MD POINT OF C[place] [address] documented in this encounter Visit Diagnoses Not on filedocumented in this encounter Active and Recently Administered Medications Care Teams Knife Setter Grinder Machine Relationship Specialty Start Date End Date Ana Her MD [address] [place] [address] PCP - General 07/29/13 documented as of this encounter
--- OUTSIDE RECORDS SUMMARY | 2024-05-13 11:17 | XMS_ITS | Encounter Summary ---
Author Organization [facility] [place] [address] Care Team Providers Care Diet Therapist Name Role Phone Ana Her MD Primary Care Provider [phone] Encounter Details Date Type Department Care Team (Latest Contact Info) Description 01/23/2022 12:15 PM EDT TH Visit (TeleHealth) [place] [address] Laura Will MD [facility] [place] [address] Paraesophageal hernia Social History Tobacco Use Types [...] her. She is followed by cardiology at [place], and is on xarelto. Impression: Symptomatic paraesophageal [...] gangrene documented in this encounter Care Teams Diet Therapist Relationship Specialty Start Date End Date Ana Her MD [address] [facility] [address] [place] [address] PCP - General 07/29/13 documented as of this encounter
--- OUTSIDE RECORDS SUMMARY | 2024-05-13 11:18 | XMS_ITS | Encounter Summary ---
Author Organization [facility] [place] [address] Care Team Providers Care Brake Lining Finisher Asbestos Name Role Phone Ana Her MD Primary Care Provider [phone] Encounter Details Date Type Department Care Team (Late st Contact Info) Description 03/04/2017 Orders [place] [address] Malika Chen MD [facility] [place] [address] Malignant neoplasm of upper-outer quadrant of left [...] MD IMG MAMMO ORDERABLE S * Mammo Prole Node Injection (03/30/2017 9:01 AM EST) Anatomical [...] positive documented in this encounter Care Teams Brake Lining Finisher Asbestos Relationship Specialty Start Date End Date Ana Her MD [address] [facility] [place] [address] PCP - General 07/29/13 documented as of this encounter
--- OUTSIDE RECORDS SUMMARY | 2024-05-13 11:18 | XMS_ITS | Encounter Summary ---
Author Organization [place] [address] Care Team Providers Care Melt House Centrifugal Operator Name Role Phone Ana Her MD Primary Care Provider [phone] Encounter Details Date Type Department Care Team (Late st Contact Info) Description 03/03/2017 Notes [place] [address] January Ward MSW Social History Tobacco Use Types Packs/Day Years Used Date Smoking Tobacco: Never Smokeless Tobacco: Never Sex and Gender Information Value Date Recorded Sex Assigned at Not on file Gender Identity Not on file Sexual Orientation Not on file documented as of this encounter Progress Notes * January Ward MSW - 03/03/2017 12:56 PM EDT OFFICE OF CARE MANAGEMENT/CONTINUING INDUSTRIAL MAINTENANCE MECHANIC Reason for referral: Digna Olson is a 71 year old, female who was seen in the multidisciplinarybreast care clinic for a surgical consult as she was recently diagnosed with ER/MS+, left breast, invasive mucinous carcinoma. After meeting with Dr. Chen, pt has decided to have a lumpectomy/SLNB. If pt needs radiation therapy, she will receive it at the [facility]. [facility] met with pt to complete a psychosocial assessment and to explain my role in the breast program. Pt was encouraged to contact me if she has any questions or concerns. Living arrangements/social supports: Pt lives alone in [place], [place]. She has support from her family and is accompanied to today's appt by her sisters who live in [place]. Employment/Insurance/Finances: Pt is retired and receives Social [...] the SW for the [facility]. Plan: [facility] will continue to follow pt to assess and assist with their psychosocial needs. DELONTE Moreno [facility]/[place] [phone] Pager #[phone] documented in this encounter Plan of Treatment Not on file documented as of this encounter Visit Diagnoses Not on filedocumented in this encounter Care Teams Melt House Centrifugal Operator Relationship Specialty Start Date End Date Ana Her MD [address] [place] [address] PCP - General 07/29/13 documented as of this encounter
--- OUTSIDE RECORDS SUMMARY | 2024-05-13 11:18 | XMS_ITS | Encounter Summary ---
Author Organization [facility] Address [facility] [place] [address] Care Team Providers Care Trimming Machine Set Up Operator Name Role Phone Ana Her MD Primary Care Provider [phone] Reason for Visit * Reason Comments Radiation Consult * Consultation (Routine) - Closed Specialty Diagnoses / Procedures Referred By Christiano hackett Referred To Contact Radiation Oncology Diagnoses Breast cancer Malika Chen MD [facility] [place] [address] Stj Rad Onc Office [address] [place] [phone] Referral ID Status Reason Start Date Expiration Date Visits Re quested Visits Authorized [id number] Closed 03/17/2017 03/17/2018 1 1 Encounter Details Date Type Department Care Team (Late st Contact Info) Description 04/13/2017 10:00 AM EST Office Visit Radiation Oncology at [address] [phone] Faye Velez MD [facility] [place] [address] Malignant neoplasm of left female breast, unspecified [...] cm from nipple. Path: Invasive mucinous ca, ER+WV+, Her2 FISH neg. 03/03/[address] [...] she is being evaluated for afib @ [facility] 04/15/17; has been wearing a ziopatch [...] 6.43) performed by Malika Chen MD at [facility] MAIN OR ??? PRO INTRAOP SENTINEL LYMPH ID W/DYE INJECTION Left 03/30/2017 INTRAOPERATIVE ID (MAPPING) SENTINEL LYMPH NODE,INCLUDES INJECTION (WRVU 2.5) performed by Malika Chen MD at [facility] MAIN OR ??? PRO MASTECTOMY, PARTIAL Left 03/30/2017 MASTECTOMY PARTIAL (WRVU 10.13) performed by Malika Chen MD at [facility] MAIN OR Your Medications These changes are [...] A: Breast ca, L, mucinous, gr 2, ER+WV+, Her2 neg, s/p lumpectomy & SNB, pT1b [...] treated breast; cough; shortness of breath; tiredness. Late/terminal manager side effects to breast discussed include: Treated [...] breast documented in this encounter Care Teams Trimming Machine Set Up Operator Relationship Specialty Start Date End Date Ana Her MD [address] [place] [address] PCP - General 07/29/13 documented as of this encounter
--- OUTSIDE RECORDS SUMMARY | 2024-05-13 11:18 | XMS_ITS | Encounter Summary ---
Author Organization [facility] [place] [address] Care Team Providers Care Work Over Rig Operator Name Role Phone Ana Her MD Primary Care Provider [phone] Encounter Details Date Type Department Care Team (Late st Contact Info) Description 03/30/2017 [place] [address] January Ward MSW Social History Tobacco Use [...] was recently diagnosed with invasive mucinous carcinoma. [facility] attempted to meet with pt in Same Day surgery this morning but she was still in radiology. I spoke with her ex-, Keith, who states she will be staying with him tondenise. Their granddaughters are traveling from [place] and plan to accompany pt to see her fleet service manager at [facility] tomorrow. Pt has been followed by this physician for her cardiac problems. [facility] will continue to provide support and resources to pt. documented in this encounter Plan of Treatment Not on file documented as of this encounter Visit Diagnoses Not on filedocumented in this encounter Care Teams Work Over Rig Operator Relationship Specialty Start Date End Date Ana Her MD [address] [facility] [address] [place] [address] PCP - General 07/29/13 documented as of this encounter
--- OUTSIDE RECORDS SUMMARY | 2024-05-13 11:18 | XMS_ITS | Encounter Summary ---
[place] [address] Care Team Providers Care Lot Worker Name Role Phone Ana Her MD Primary Care Provider Encounter Details Date Type Department Care Team (Late st Contact Info) Description 04/09/2017 Abstract Radiation Oncology at [address] [phone] Maria A Antonio, RN Social History Tobacco [...] on filedocumented in this encounter Care Teams Lot Worker Relationship Specialty Start Date End Date Ana Her MD [address] [place] [address] PCP - General 07/29/13 documented as of this encounter
--- OUTSIDE RECORDS SUMMARY | 2024-05-13 11:18 | XMS_ITS | Encounter Summary ---
[place] [address] Care Team Providers Care Isotope Technician Name Role Phone Ana Her MD Primary Care Provider [phone] Encounter Details Date Type Department Care Team (Late st Contact Info) Description 05/06/2017 Telephone Radiation Oncology at [address] [phone] Maria A Antonio RN Social [...] on filedocumented in this encounter Care Teams Isotope Technician Relationship Specialty Start Date End Date Ana Her MD [address] [facility] 1 [place] [address] PCP - General 07/29/13 documented as of this encounter
--- OUTSIDE RECORDS SUMMARY | 2024-05-13 11:18 | XMS_ITS | Encounter Summary ---
[place] [address] Care Team Providers Care Silviculturist Name Role Phone Ana Her MD Primary Care Provider [phone] Encounter Details Date Type Department Care Team (Late st Contact Info) Description 03/18/2017 Telephone [place] [phone] Bryanna Marsh RN Social History Tobacco Use [...] notes she had a colonoscopy done at [facility] and developed atrial fibrillation; she has been started on blood thinners. She was just discharged from the [facility] hospital, and called us to let [...] give Digna a call her number is [phone]. The below is from Dr. Chen visit with Digna. Assessment and Plan: ?? 71 yo female with radiographic stage I ER/WI+, HER2- IDC of the left breast. No [...] on filedocumented in this encounter Care Teams Silviculturist Relationship Specialty Start Date End Date Ana Her MD [address] [place] [address] PCP - General 07/29/13 documented as of this encounter
--- OUTSIDE RECORDS SUMMARY | 2024-05-13 11:18 | XMS_ITS | Encounter Summary ---
Author Organization [facility] [place] [address] Care Team Providers Care Supervising Producer Name Role Phone Ana Her MD Primary Care Provider [phone] Encounter Details Date Type Department Care Team (Late st Contact Info) Description 03/30/2017 9:30 AM EST - 03/30/2017 11:28 AM EST [place] [phone] Brant Chen MD [facility] [place] [address] MASTECTOMY PARTIAL (WRVU 10.13) Social History Tobacco [...] 24 hours Activity as tolerated Call [phone] with any questions Do not soak incision [...] obtained which revealed IDC which is ER/NE+, her2-. She has no known breast masses, no adenopathy, no nipple discharge. ?? Alma Delia had a bone scan in [place] which was read as possible metastasis in the left tibia. Of note- she fractured this area recently. She has recovered well. ?? PMH HNT NIDDM not on meds Spinal stenosis Fractured left tibial plateau [place], 2017 GERD ?? FH: Maternal first cousin with breast cancer Brother with rectal cancer Sister with PE ? SH: lives alone. Has good support from sisters who live in [place]. Non smoker. Has a son who lives [...] Chen MD - 03/30/2017 12:27 PM EST [facility] Operative Note Patient Name: Digna Olson : [id number] MR#: [id number] Case Date: 03/30/2017 Surgeon: Surgeon(s) and Role: [...] [place] [address]. Remaining count within the axilla was 1982. [...] PM EST 03/30/2017 12:09 PM EST Narrative [facility] - 03/30/2017 12:09 PM EST Specimen requisition ordered. ??Separate Pathology report to follow Brant Chen MD PATHOLOGY/CYTOLOGY ORDERABLES [facility] [place] [address] * Specimen to Pathology (surgical or derm) (03/30/2017 12:08 PM EST) AP Specimen 03/30/2017 12:0 8 PM EST 03/30/2017 12:08 PM EST Narrative [facility] - 03/30/2017 12:08 PM EST Specimen requisition ordered. ??Separate Pathology report to follow Brant Chen MD PATHOLOGY/CYTOLOGY ORDERABLES Performing Organization Address [facility] Co de Phone Number [facility] [place] [address] * Specimen to Pathology (surgical or derm) (03/30/2017 12:00 PM EST) AP Specimen 03/30/2017 12:0 0 PM EST 03/30/2017 12:00 PM EST Narrative [facility] - 03/30/2017 12:00 PM EST Specimen requisition ordered. ??Separate Pathology report to follow Brant Chen MD PATHOLOGY/CYTOLOGY ORDERABLES Performing Organization Address [facility] [place] [address] * Specimen to Pathology (surgical or derm) (03/30/2017 11:51 AM EST) AP Specimen 03/30/2017 11:5 1 AM EST 03/30/2017 11:51 AM EST Narrative [facility] - 03/30/2017 11:51 AM EST Specimen requisition ordered. ??Separate Pathology report to follow Brant Chen MD PATHOLOGY/CYTOLOGY ORDERABLES Performing Organization Address [facility] Co de Phone Number [facility] [place] [phone] * Surgical Pathology Report (03/30/2017 11:50 AM EST) Final Diagnosis [id number] ? Location: [facility]; A The signing pathologist has (i) examined the relevant preparation(s) for the specimen(s) and (ii) rendered or confirmed the diagnosis(es). . ?Surgical Pathology DIAGNOSIS A,B - See Synoptic C - Left breast, Deep/lateral margin re-excision - ?Benign fatty breast tissue. D - Left breast, Superficial margin re-excision - ?Benign fatty breast tissue. See Note Note - [place] ink (indicating additional cranial margin) is also present on this superficial margin re-excision. ---- Specimen Parts: ?? A - Left axilliary sentinel node B - Left breast partial mastectomy Specimen ? Procedure: ??Excision with image-guided localization ? Lymph Node Sampling: ?? [place] lymph node(s) ? Specimen Laterality: ?? Left [...] not present in specimen Lymph Nodes ? [place] Lymph Nodes: ?? [place] lymph node biopsy performed ? Number of [place] Nodes Examined: ?3 ? Number of Lymph [...] Chávez DO Verified: ??04/01/2017 ?Pathologist Performed at: ??-[facility] Dept. of Pathology, [place], [place] CLINICAL INFORMATION Specimen Submitted: A - [...] and there are ??no close margins. per [facility] . Specimen Description: According to the established protocol the ink designations are red (medial), yellow (lateral), orange (cranial), green (caudal), black (deep) and blue (superficial). Tissue Sections: The specimen is serially sectioned perpendicular to the long axis from lateral to medial into X slices, each averaging 0.45 cm in thickness. LESION Description: Biopsy site. Size: 0.8 x 0.4 x 0.4 cm. Color: [place] and yellow. Consistency: Soft. Location: Slices III and IV. Nearest Margin: 0.6 cm to the cranial margin. Other Margins: 0.8 cm to the deep margin, 1.0 cm to the superficial margin, ? > 2 cm from all other margins. OTHER Parenchyma: Predominately fatty with scant fibrous tissue. Wire/Clip: Biopsy marker clip identified within slice IV. SECTIONS/PROCESSI NG: (1) solar manufacturer's representative slice I, lateral margin; (2) slice III, lesion to cranial margin; (3-5) remainder of slice III; (6) slice IV, lesion to cranial margin (clip); (7-8) remainder of slice IV; (9) solar manufacturer's representative slice V; (10) solar manufacturer's representative slice X, medial margin. (R10) Ischemic [...] sectioned. (T3) ??sns 04/01/2017 9:38 AM EST [facility] BREAST STRUCTURE / Unknown 03/30/2017 11:50 AM EST 03/30/2017 11:50 AM EST BREAST STRUCTURE / Unknown 03/30/2017 11:50 AM EST 03/30/2017 11:50 AM EST BREAST STRUCTURE / Unknown 03/30/2017 11:50 AM EST 03/30/2017 11:50 AM EST BREAST STRUCTURE / Unknown 03/30/2017 11:50 AM EST 03/30/2017 11:50 AM EST Brant Chen MD PATHOLOGY/CYTOLOGY ORDERABLES [facility] [place] [address] * Mammo Direct Digital Left (03/30/2017 9:15 [...] Routine documented in this encounter Care Teams Supervising Producer Relationship Specialty Start Date End Date Ana Her MD [address] [place] [address] PCP - General 07/29/13 documented as of this encounter
--- OUTSIDE RECORDS SUMMARY | 2024-05-13 11:18 | XMS_ITS | Encounter Summary ---
Author Organization [facility] [place] [address] Care Team Providers Care Chart Picker Name Role Phone Ana Her MD Primary Care Provider [phone] Encounter Details Date Type Department Care Team (Latest Contact Info) Description 05/22/2020 10:46 AM EST - 05/22/2020 11:59 PM [facility] Encounter Mammography/[place] [phone] Jeanine Lobato APRN [facility] [place] [address] Malignant neoplasm of lower-outer quadrant of left [...] mammogram documented in this encounter Care Teams Chart Picker Relationship Specialty Start Date End Date Ana Her MD [facility] [address] [facility] 1 [place] [address] PCP - General 07/29/13 documented as of this encounter
--- OUTSIDE RECORDS SUMMARY | 2024-05-13 11:18 | XMS_ITS | Encounter Summary ---
Author Organization [facility] [place] [address] Care Team Providers Care Technical Editor Name Role Phone Ana Her MD Primary Care Provider [phone] Reason for Visit * Reason Comments Follow-up Encounter Details Date Type Department Care Team (Late st Contact Info) Description 10/23/2017 11:00 AM EDT Office Visit Hematology [place] [address] Mayra Page APRN [facility] [place] [address] Malignant neoplasm of lower-outer quadrant of left [...] this encounter Progress Notes * Mayra Page, WIRE BASKET MAKER - 10/23/2017 11:00 AM EDT Digna [...] cancer cells with immunostaining) Stain intensity: Strong SD immunoreactivity: Positive (>90% cancer cells with immunostaining) [...] ??Excision with image-guided localization ?Lymph Node Sampling: ??[place] lymph node(s) ?Specimen Laterality: ??Left Tumor ?Histologic [...] ??DCIS not present in specimen Lymph Nodes ?[place] Lymph Nodes: [place] lymph node biopsy performed ?Number of [place] Nodes Examined: ??3 ?Number of Lymph Node(s) [...] DEXA scan was 10/28/[address] [facility]. There is no history of thromboembolic events. [...] positive documented in this encounter Care Teams Technical Editor Relationship Specialty Start Date End Date Ana Her MD [address] [place] [address] PCP - General 07/29/13 documented as of this encounter
--- OUTSIDE RECORDS SUMMARY | 2024-05-13 11:18 | XMS_ITS | Encounter Summary ---
[place] [address] Care Team Providers Care Day Spa Manager Name Role Phone Ana Her MD Primary Care Provider [phone] Reason for Visit * Reason Comments Establish Care * Consultation (Routine) - Specialty Diagnoses / Procedures Referred By Christiano hackett Referred To Contact Hematology and Oncology Diagnoses Other abnormal and inconclusive findings on diagnostic imaging of breast abnormal mammo, left breast Jackie Cisneros, WENDY [address] [place] [address] [facility] Hem Onc [address] [place] [address] Referral ID Status Reason Start Date Expiration Date V isits Requested Visits Authorized [id number] Consult, Test & Treat Connection [facility] 02/17/2017 05/20/2017 6 6 Encounter Details Date Type Department Care Team (Late st Contact Info) Description 03/03/2017 9:00 AM EDT Office [place] [address] Malika Chen MD [facility] [place] [address] Argentina Sanchez, RN Malignant neoplasm [...] she will meet with medical and radiation ([facility]) oncologists after surgery. 4. Contact phone number for questions or concerns in the immediate post- operative period. 5. Comprehensive Breast Program Binder. 6. Post Breast Surgery Exercises handout created by physical therapists at [facility]. 7. Breast Cancer Treatment Process care map provided and reviewed. 8. Things to Consider...What I Wish I Knew advice from breast cancer patients handout provided. She verbalized understanding of the plan of care and states all her questions were answered. Twentyminutes was spent in education and providing support. Alma Delia has our contact information. She will call the surgical technologist to schedule surgery after she has her [...] Alma Delia had a bone scan in [place] which was read as possible metastasis in the left tibia. Of note- she fractured this area recently. She has recovered well. PMH HNT NIDDM not on meds Spinal stenosis Fractured left tibial plateau December, GERD FH: Maternal first cousin with breast cancer Brother with rectal cancer Sister with PE SH: lives alone. Has good support from sisters who live in [place]. Non smoker. Has a son who lives [...] positive documented in this encounter Care Teams Day Spa Manager Relationship Specialty Start Date End Date Ana Her MD [address] [place] [address] PCP - General 07/29/13 documented as of this encounter
--- OUTSIDE RECORDS SUMMARY | 2024-05-13 11:18 | XMS_ITS | Encounter Summary ---
[place] [address] Care Team Providers Care Breakdown Worker Name Role Phone Ana Her MD Primary Care Provider [phone] Encounter Details Date Type Department Care Team (Latest Contact Info) Description 03/30/2017 7:27 AM EST - 03/30/2017 1:37 PM EST Hospital Encounter [place] [id number] Brant Chen MD [facility] [address] Discharge Disposition: Home Social History Tobacco Use [...] shower 24 hours Activity as tolerated Call [phone] with any questions Do not soak incision [...] was obtained which revealed IDC which is ER/DC+, her2-. She has no known breast masses, no adenopathy, no nipple discharge. ?? Alma Delia had a bone scan in [place] which was read as possible metastasis in the left tibia. Of note- she fractured this area recently. She has recovered well. ?? PMH HNT NIDDM not on meds Spinal stenosis Fractured left tibial plateau December, GERD ?? FH: Maternal first cousin with breast cancer Brother with rectal cancer Sister with PE ? SH: lives alone. Has good support from sisters who live in [place]. Non smoker. Has a son who [...] 71 yo female with radiographic stage I ER/DC+, HER2- IDC of the left breast. No [...] Operative Note Patient Name: Digna Olson : [id number] MR#: [id number] Case Date: 03/30/2017 Surgeon: Surgeon(s) and Role: [...] [place] [address]. Remaining count within the axilla was 1982. [...] Chen MD PATHOLOGY/CYTOLOGY ORDERABLES [facility] [place] [address] * Specimen to Pathology (surgical or derm) (03/30/2017 12:08 PM EST) AP Specimen 03/30/2017 12:0 8 PM EST 03/30/2017 12:08 PM EST Narrative [facility] - 03/30/2017 12:08 PM EST Specimen requisition ordered. ??Separate Pathology report to follow Brant Chen MD PATHOLOGY/CYTOLOGY ORDERABLES Performing Organization Address [facility] [place] [address] * Specimen to Pathology (surgical or derm) (03/30/2017 12:00 PM EST) AP Specimen 03/30/2017 12:0 0 PM EST 03/30/2017 12:00 PM EST Narrative [facility] - 03/30/2017 12:00 PM EST Specimen requisition ordered. ??Separate Pathology report to follow Brant Chen MD PATHOLOGY/CYTOLOGY ORDERABLES Performing Organization Address [facility] Co de Phone Number [place] [phone] * Specimen to Pathology (surgical or derm) (03/30/2017 11:51 AM EST) AP Specimen 03/30/2017 11:5 1 AM EST 03/30/2017 11:51 AM EST Narrative [facility] - 03/30/2017 11:51 AM EST Specimen requisition ordered. ??Separate Pathology report to follow Brant Chen MD PATHOLOGY/CYTOLOGY ORDERABLES Performing Organization Address [facility] [place] [address] * Surgical Pathology Report (03/30/2017 11:50 AM EST) Final Diagnosis [id number] ? Location: [facility]; [facility]; A The signing pathologist has (i) examined the relevant preparation(s) for the specimen(s) and (ii) rendered or confirmed the diagnosis(es). . ?Surgical Pathology DIAGNOSIS A,B - See Synoptic C - Left breast, Deep/lateral margin re-excision - ?Benign fatty breast tissue. D - Left breast, Superficial margin re-excision - ?Benign fatty breast tissue. See Note Note - [place] ink (indicating additional cranial margin) is also present on this superficial margin re-excision. ---- Specimen Parts: ?? A - Left axilliary sentinel node B - Left breast partial mastectomy Specimen ? Procedure: ??Excision with image-guided localization ? Lymph Node Sampling: ?? [place] lymph node(s) ? Specimen Laterality: ?? Left [...] not present in specimen Lymph Nodes ? [place] Lymph Nodes: ?? [place] lymph node biopsy performed ? Number of [place] Nodes Examined: ?3 ? Number of Lymph [...] [facility], [place], [place] CLINICAL INFORMATION Specimen Submitted: A - [...] and there are ??no close margins. per [facility] Radiology . Specimen Description: According to the established protocol the ink designations are red (medial), yellow (lateral), orange (cranial), green (caudal), black (deep) and blue (superficial). Tissue Sections: The specimen is serially sectioned perpendicular to the long axis from lateral to medial into X slices, each averaging 0.45 cm in thickness. LESION Description: Biopsy site. Size: 0.8 x 0.4 x 0.4 cm. Color: [place] and yellow. Consistency: Soft. Location: Slices III and IV. Nearest Margin: 0.6 cm to the cranial margin. Other Margins: 0.8 cm to the deep margin, 1.0 cm to the superficial margin, ? > 2 cm from all other margins. OTHER Parenchyma: Predominately fatty with scant fibrous tissue. Wire/Clip: Biopsy marker clip identified within slice IV. SECTIONS/PROCESSI NG: (1) litigation claim representative slice I, lateral margin; (2) slice III, lesion to cranial margin; (3-5) remainder of slice III; (6) slice IV, lesion to cranial margin (clip); (7-8) remainder of slice IV; (9) litigation claim representative slice V; (10) litigation claim representative slice X, medial margin. (R10) Ischemic [...] Chen MD PATHOLOGY/CYTOLOGY ORDERABLES [facility] [place] [address] * Mammo Direct Digital Left (03/30/2017 9:15 [...] Routine documented in this encounter Care Teams Breakdown Worker Relationship Specialty Start Date End Date Ana Her MD [address] [place] [address] PCP - General 07/29/13 documented as of this encounter
--- OUTSIDE RECORDS SUMMARY | 2024-05-13 11:18 | XMS_ITS | Encounter Summary ---
[place] [address] Care Team Providers Care Award Clerk Name Role Phone Ana Her MD Primary Care Provider [phone] Encounter Details Date Type Department Care Team (Late st Contact Info) Description 05/19/2017 Telephone Hematology [place] [phone] Sandy Chapman Social History Tobacco Use Types [...] on filedocumented in this encounter Care Teams Award Clerk Relationship Specialty Start Date End Date Ana Her MD [address] [place] [address] PCP - General 07/29/13 documented as of this encounter
--- OUTSIDE RECORDS SUMMARY | 2024-05-13 11:18 | XMS_ITS | Encounter Summary ---
Author Organization [facility] [place] [address] Care Team Providers Care Biodiesel Plant Manager Name Role Phone Ana Her MD Primary Care Provider [phone] Encounter Details Date Type Department Care Team (Latest Contact Info) Description 02/25/2017 2:59 PM EDT - 02/25/2017 11:59 PM EDT Hospital [place] [phone] Enzo Burkett MD Abnormal finding on breast [...] associated with invasive carcinoma. Enzo Burkett MD [facility] MAMMO ORDERABLES * Surgical Pathology Report (02/25/2017 3:01 PM EDT) Final Diagnosis [id number] ? Location: 3L The signing pathologist has [...] FISH. ??Direct analysis was performed using the [employer] Kit. ??Slide adequacy and signal enumeration were [...] factor receptor 2 testing in breast cancer: [place] Society of Clinical Oncology/College of [place] Pathologists clinical practice guideline update. J Clin Oncol. 2013 Nov . Reviewed by: Kyara Logan MD Office Secretary, Molecular Pathology _ Electronically signed by: ??Epifanio Serra MD Verified: ??03/04/2017 ?Pathologist Performed at: ??-[facility] Dept. of Pathology, [place], [place] ? Addendum ADDENDUM DISCUSSION Immunohistochemist ry Studies Specimen: Left breast, core needle biopsy (A1) ER immunoreactivity: Positive ( ??>90% cancer cells with immunostaining) Stain intensity: Strong . ADDENDUM DISCUSSION DE immunoreactivity: Positive ( ??>90% cancer cells with [...] The assays were performed according to the pharmacy messenger ' s instructions using Anti-ER (SP1) and Anti-DE (16) antibodies. Electronically signed by: ??Epifanio Serra MD Verified: ??02/27/2017 ?Pathologist Performed at: ??-[facility] Dept. of Pathology, [place], [place] ?Surgical Pathology DIAGNOSIS Needle biopsies: ?Left breast Diagnosis: ?Invasive mucinous carcinoma (see Discussion) ?Intermediate grade, modified SBR score = 6 Microcalcification s: ??Few calcifications associated with invasive carcinoma Electronically signed by: ??Ponce MELTON, Epifanio Gamez Verified: ??02/26/2017 ?Pathologist Performed at: ??-[facility] Dept. of Pathology, [place], [place] DISCUSSION Studies for ER, DE, and HER2 have been ordered; results will [...] g: (T4) ??elian 03/04/2017 2:01 PM EDT [facility] BREAST STRUCTURE / Unknown 02/25/2017 3:01 PM EDT 02/25/2017 3:01 PM EDT Enzo Burkett MD PATHOLOGY/CYTOLOGY O RDERABLES [facility] [place] [address] documented in this encounter Visit Diagnoses Diagnosis Abnormal finding on breast imaging Other (abnormal) findings on radiological examination of breast documented in this encounter Care Teams Biodiesel Plant Manager Relationship Specialty Start Date End Date Ana Her MD [address] [place] [address] PCP - General 07/29/13 documented as of this encounter
--- OUTSIDE RECORDS SUMMARY | 2024-05-13 11:18 | XMS_ITS | Encounter Summary ---
[place] [address] Care Team Providers Care Cash Control Specialist Name Role Phone Ana Her MD Primary Care Provider [phone] Encounter Details Date Type Department Care Team (Late st Contact Info) Description 11/09/2018 2:45 PM EDT Office Visit Hematology [place] [address] Ricky Lowry MD Malignant neoplasm of lower-outer [...] ??Excision with image-guided localization ?Lymph Node Sampling: ??[place] lymph node(s) ?Specimen Laterality: ??Left Tumor ?Histologic [...] ??DCIS not present in specimen Lymph Nodes ?[place] Lymph Nodes: [place] lymph node biopsy performed ?Number of [place] Nodes Examined: ??3 ?Number of Lymph Node(s) [...] laterality documented in this encounter Care Teams Cash Control Specialist Relationship Specialty Start Date End Date Ana Her MD [address] [place] [address] PCP - General 07/29/13 documented as of this encounter
--- OUTSIDE RECORDS SUMMARY | 2024-05-13 11:18 | XMS_ITS | Encounter Summary ---
Author Organization [facility] [place] [address] Care Team Providers Care Ict Support Technicians Name Role Phone Ana Her MD Primary Care Provider [phone] Encounter Details Date Type Department Care Team (Late st Contact Info) Description 04/23/2017 Notes [place] [address] Marjorie Ariza Social History Tobacco Use Types [...] Marjorie Ariza - 04/23/2017 2:43 PM EST Governor Assembler Goodwill Ambassador met with pt after consultation with medical [...] filedocumented in this encounter Care Teams Ict Support Technicians Relationship Specialty Start Date End Date Ana Her MD [address] [facility] [place] [address] PCP - General 07/29/13 documented as of this encounter
--- OUTSIDE RECORDS SUMMARY | 2024-05-13 11:18 | XMS_ITS | Encounter Summary ---
Author Organization [facility] [address] Care Team Providers Care Nursing Teacher Name Role Phone Ana Her MD Primary Care Provider [phone] Encounter Details Date Type Department Care Team (Late st Contact Info) Description 03/19/2017 Telephone [place] [address] Malika Chen MD [facility] [place] [address] Social History Tobacco Use Types Packs/Day Years [...] no unexpected bleeding. Surgery is scheduled in [facility]. documented in this encounter Plan of Treatment Not on file documented as of this encounter Visit Diagnoses Not on filedocumented in this encounter Care Teams Nursing Teacher Relationship Specialty Start Date End Date Ana Her MD [address] [facility] [place] [address] PCP - General 07/29/13 documented as of this encounter
--- OUTSIDE RECORDS SUMMARY | 2024-05-13 11:18 | XMS_ITS | Encounter Summary ---
Author Organization [facility] [place] [address] Care Team Providers Care Sugar Chipper Machine Operator Name Role Phone Ana Her MD Primary Care Provider [phone] Encounter Details Date Type Department Care Team (Latest Contact Info) Description 05/31/2019 10:16 AM EST - 05/31/2019 11:59 PM EST Hospital Encounter Mammography/[place] [phone] Jeanine Lobato APRN [facility] [place] [address] History of breast cancer Discharge Disposition: Home [...] BIRADS CATEGORY 2: Benign findings. * ??The [place] [employer] and The Society of [...] breast documented in this encounter Care Teams Sugar Chipper Machine Operator Relationship Specialty Start Date End Date Ana Her MD [address] [place] [address] PCP - General 07/29/13 documented as of this encounter
--- OUTSIDE RECORDS SUMMARY | 2024-05-13 11:18 | XMS_ITS | Encounter Summary ---
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 Procedures DXA Central-Spine, Hip, And/Or Whole Body (Generic) Ricky Lowry MD [facility] HEMATOLOGY/[place] [address] [facility] Rad Xray [address] [place] [address] [place] [address] Referral ID Status Reason Start Date Expiration Date V isits Requested Visits Authorized [id number] Closed Specialty Service Requested 05/10/2018 05/10/2019 1 1 Reason for Visit * Diagnostic Test (Routine) - Closed Specialty Diagnoses / Procedures Referred By Contac t Referred To Contact Radiology Diagnoses Malignant neoplasm of lower-outer quadrant of left breast of female, estrogen receptor positive Osteopenia of neck of femur, unspecified laterality 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 Procedures DXA Central-Spine, Hip, And/Or Whole Body (Generic) Ricky Lowry MD [facility] HEMATOLOGY/[place] [address] [facility] Rad Xray [address] [place] [address] Dr Alain[place], [place] [address] Referral ID Status Reason Start Date Expiration Date V isits Requested Visits Authorized [id number] Closed Specialty Service Requested 05/10/2018 05/10/2019 1 1 Encounter Details Date Type Department Care Team (Latest Contact Info) Description 11/09/2018 1:03 PM EDT - 11/09/2018 11:59 PM EDT Hospital Encounter XRay at [address] [place] [address] Ricky Lowry MD Malignant neoplasm of lower-outer quadrant of left breast of female, estrogen receptor positive; Osteopenia of neck of femur, unspecified laterality; 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 Paper copies will be sent to providers without E-DH access. If you have received this report without the data sheet and do not have access to [employer], please contact Radiology Kickboxing Instructor at [phone] Thursday thru Thursday 8am-4pm. Thank you for [...] BMD measurements and plots are available in MPVunder the imaging tab. Paper copies will be sent to providers without INMAN access.If you have received this report without the data sheet and do not haveaccess to [employer]MAN, please contact Radiology Kickboxing Instructor at [phone] Thursday thruFriday 8am-4pm. Thank you for letting us participate in the care of this patient. Forquestions regarding this report, please contact the number below. 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 [address] [facility] [facility] 1 [place] [address] PCP - General 07/29/13 documented as of this encounter
--- OUTSIDE RECORDS SUMMARY | 2024-05-13 11:18 | XMS_ITS | Encounter Summary ---
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 Procedures DXA Central-Spine, Hip, And/Or Whole Body (Generic) Ricky Lowry MD [facility] DR HEMATOLOGY/[place] [address] [facility] Rad Xray [address] [place] [address] [place] [address] Referral ID Status Reason Start Date Expiration Date V isits Requested Visits Authorized [id number] Closed Specialty Service Requested 05/10/2018 05/10/2019 1 1 Reason for Visit * Reason Comments Follow-up Encounter Details Date Type Department Care Team (Late st Contact Info) Description 05/10/2018 2:45 PM EST Office Visit Hematology and Oncology at [facility] [place] [address] Ricky Lowry MD Malignant neoplasm of lower-outer quadrant of left breast of female, estrogen receptor positive; Osteopenia of neck of femur, unspecified laterality; alf current 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 inhibitor Social [...] ??Excision with image-guided localization ?Lymph Node Sampling: ??[place] lymph node(s) ?Specimen Laterality: ??Left Tumor ?Histologic [...] ??DCIS not present in specimen Lymph Nodes ?[place] Lymph Nodes: [place] lymph node biopsy performed ?Number of [place] Nodes Examined: ??3 ?Number of Lymph Node(s) [...] Spinal stenosis > A Fib. Cardiology at [facility]. Most recent DEXA scan was last year at [facility]. There is no history of thromboembolic [...] is planned for later this week (at [facility]). No new problems with VELEZ, diplopia, cough, [...] chemotherapy. TACHO. Renewal of anastrazole sent. Given [facility] brochure to share with cousins. All [...] BMD measurements and plots are available in [employer] under the imaging tab. Paper copies will be sent to providers without ETHERA access. If you have received this report without the data sheet and do not have access to ETHERA, please contact Radiology Senior Technical Editor at [phone] Thursday thru Thursday 8am-4pm. Thank you for letting us participate in the care of this patient. For questions regarding this report, please contact the number below. ? Electronically signed by: Khushi Hughes [facility] ([phone]), at 11/10/2018 10:55 AM Narrative 11/10/2018 10:55 [...] BMD measurements and plots are available in [email or web address] the imaging tab. Paper copies will be sent to providers without ETHERA access.If you have received this report without the data sheet and do not haveaccess to ETHERA, please contact Radiology Senior Technical Editor at [phone] Thursday thruFriday 8am-4pm. Thank you for letting us participate in the care of this patient. Forquestions regarding this report, please contact the number below. 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
--- OUTSIDE RECORDS SUMMARY | 2024-05-13 11:18 | XMS_ITS | Encounter Summary ---
Author Organization [facility] [place] [address] Care Team Providers Care Electric Drill Operator Name Role Phone Ana Her MD Primary Care Provider [phone] Encounter Details Date Type Department Care Team (Latest Contact Info) Description 03/30/2017 8:30 AM [facility] Hospital [place] [address] Malika Chen MD [facility] GENERAL [place] [address] Malignant neoplasm of upper-outer quadrant of left [...] documented in this encounter Care Teams Electric Drill Operator Relationship Specialty Start Date End Date Ana Her MD [address] [place] [address] PCP - General 07/29/13 documented as of this encounter
--- OUTSIDE RECORDS SUMMARY | 2024-05-13 11:18 | XMS_ITS | Encounter Summary ---
[place] [address] Care Team Providers Care 3D Specialist Name Role Phone Ana Her MD Primary Care Provider [phone] Encounter Details Date Type Department Care Team (Late st Contact Info) Description 02/27/2017 Telephone [place] [phone] Argentina Sanchez RN Social History Tobacco Use [...] a 71 y.o. 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 Alma Delia sounds positive and has support. She will have someone accompany her to appointments. She appears to be coping well but is anxious to meet with a breast surgeon to determine a treatment plan. Alma Delia have a bone SPECT done 1-2 months ago at [facility] and her doctor there questioned [...] for her review (a link to the [facility] Early Stage Breast Cancer program). [...] on filedocumented in this encounter Care Teams 3D Specialist Relationship Specialty Start Date End Date Ana Her MD [address] [place] [address] PCP - General 07/29/13 documented as of this encounter
--- OUTSIDE RECORDS SUMMARY | 2024-05-13 11:18 | XMS_ITS | Encounter Summary ---
Author Organization [facility] [place] [address] Care Team Providers Care Canadian Bacon Tier Name Role Phone Ana Her MD Primary Care Provider [phone] Encounter Details Date Type Department Care Team (Late st Contact Info) Description 02/27/2017 Orders Only [place] [address] Malika Chen MD [facility] [place] [address] Malignant neoplasm of left breast in female, [...] EDT) Glucose 139 65 - 199 mg/dL [facility] Comment:Diabetes: >=200 mg/d L plus symptoms Blood Urea Nitrogen 20(H) 8 - 18 mg/dL [facility] Creatinine 0.95 0.70 - 1.20 mg/dL [facility] Sodium 141 135 - 145 mmol/L [facility] [...] mmol/L [facility] Carbon Dioxide 26 22 - 31 mmol/L [facility] Anion Gap 14 5 - 15 mmol/L [facility] Calcium 9.3 8.5 - 10.5 mg/dL [facility] Protein, Total 6.9 6.1 - 8.0 gm/dL [facility] Albumin 4.2 3.2 - 5.2 gm/dL [facility] Aspartate Aminotransferase 17 0 - 30 unit/L [facility] Alanine Aminotransferase 16 0 - 30 unit/L [facility] Alkaline Phosphatase 75 40 - 104 unit/L [facility] Bilirubin, Total 0.5 0.2 - 1.3 mg/dL [facility] Est Glomerular Filtration Rate 58(L) >=60 [facility] Comment: The reported eGFR should be multiplied by 1.2 for patients. The MDRD is not an appropriate measure of renal function for patients with body mass extremes or in patients with acute kidney failure. http://[employer].Immigreat Now/DHnkdep http://[employer].Immigreat Now/DHMCnkf Blood specimen (specimen) 03/03/2017 7:50 AM EDT 03/03/2017 8:03 AM EDT Narrative Resulting Agency Comment Spec In Lab Malika Chen MD CHEMISTRY ORDERABLE S [facility] [place] [address] documented in this encounter Visit Diagnoses Diagnosis Malignant neoplasm of left breast in female, estrogen receptor positive, unspecified site of breast documented in this encounter Care Teams Canadian Bacon Tier Relationship Specialty Start Date End Date Ana Her MD [address] [facility] [place] [address] PCP - General 07/29/13 documented as of this encounter
--- OUTSIDE RECORDS SUMMARY | 2024-05-13 11:18 | XMS_ITS | Encounter Summary ---
Author Organization [facility] [place] [address] Care Team Providers Care Lithographic Camera Operator Name Role Phone Ana Her MD Primary Care Provider [phone] Encounter Details Date Type Department Care Team (Latest Contact Info) Description 03/30/2017 8:30 AM [facility] Hospital [place] [address] [facility] [place] [address] Malignant neoplasm of upper-outer quadrant of left [...] imaging was performed. Procedural attestation: Resident: Dr. Alenea De Jesus I was present with the [...] mg documented in this encounter Care Teams Lithographic Camera Operator Relationship Specialty Start Date End Date Ana Her MD [address] [place] [address] PCP - General 07/29/13 documented as of this encounter
--- OUTSIDE RECORDS SUMMARY | 2024-05-13 11:18 | XMS_ITS | Encounter Summary ---
Author Organization [facility] [place] [address] Care Team Providers Care Air Dispatcher Name Role Phone Ana Her MD Primary Care Provider Encounter Details Date Type Department Care Team (Late st Contact Info) Description 05/10/2018 1:10 PM EST - 05/10/2018 11:59 PM EST Hospital Encounter Mammography/[place] [phone] Hiral Padgett, WENDY Encounter for screening mammogram [...] cancer documented in this encounter Care Teams Air Dispatcher Relationship Specialty Start Date End Date Ana eHr MD [address] [place] [address] PCP - General 07/29/13 documented as of this encounter
--- OUTSIDE RECORDS SUMMARY | 2024-05-13 11:18 | XMS_ITS | Encounter Summary ---
[place] [address] Care Team Providers Care Iuss Acoustic Analyst Name Role Phone Ana Her MD Primary Care Provider [phone] Encounter Details Date Type Department Care Team (Late st Contact Info) Description 04/05/2018 Telephone [place] [phone] Adrianna Jones Social History Tobacco Use Types [...] Padgett. Patient advises she is admitted at [facility] for afib and is pending procedure etc. Patient will call to reschedule once she is discharged home. documented in this encounter Plan of Treatment Not on file documented as of this encounter Visit Diagnoses Not on filedocumented in this encounter Care Teams Iuss Acoustic Analyst Relationship Specialty Start Date End Date Ana Her MD [address] [place] [address] PCP - General 07/29/13 documented as of this encounter
--- OUTSIDE RECORDS SUMMARY | 2024-05-13 11:18 | XMS_ITS | Encounter Summary ---
Author Organization [facility] [place] [address] Care Team Providers Care Rails Developer Name Role Phone Ana Her MD Primary Care Provider [phone] Encounter Details Date Type Department Care Team (Latest Contact Info) Description 03/30/2017 8:30 AM [facility] Hospital [place] [address] Malika Chen MD [facility] [place] [address] Malignant neoplasm of upper-outer quadrant of left [...] documented in this encounter Results * Mammo [place] Node Injection (03/30/2017 9:01 AM EST) Anatomical [...] mCi documented in this encounter Care Teams Rails Developer Relationship Specialty Start Date End Date Ana Her MD [address] [place] [address] PCP - General 07/29/13 documented as of this encounter
--- OUTSIDE RECORDS SUMMARY | 2024-05-13 11:18 | XMS_ITS | Encounter Summary ---
[place] [address] Care Team Providers Care Mold Press Operator Name Role Phone Ana Her MD Primary Care Provider [phone] Reason for Visit * Reason Comments Follow-up Encounter Details Date Type Department Care Team (Late st Contact Info) Description 11/29/2019 2:45 PM EDT Office Visit H[place]ology [place] [phone] Ricky Lowry MD Malignant neoplasm of lower-outer [...] ??Excision with image-guided localization ?Lymph Node Sampling: ??[place] lymph node(s) ?Specimen Laterality: ??Left Tumor ?Histologic [...] ??DCIS not present in specimen Lymph Nodes ?[place] Lymph Nodes: [place] lymph node biopsy performed ?Number of [place] Nodes Examined: ??3 ?Number of Lymph Node(s) [...] Spinal stenosis > A Fib. Cardiology at [facility]. S/P successful cardioversion May 2018. DEXA scan [...] positive documented in this encounter Care Teams Mold Press Operator Relationship Specialty Start Date End Date Ana Her MD [address] [place] [address] PCP - General 07/29/13 documented as of this encounter
--- OUTSIDE RECORDS SUMMARY | 2024-05-13 11:18 | XMS_ITS | Encounter Summary ---
Author Organization [facility] [place] [address] Care Team Providers Care Caster Helper Name Role Phone Ana Her MD Primary Care Provider [phone] Encounter Details Date Type Department Care Team (Late st Contact Info) Description 05/31/2019 1:00 PM EST Office [place] [address] Jeanine Lobato MANAGER TRANSMISSION [facility] [place] [address] Encounter for follow-up surveillance of breast cancer; [...] situation. Results: Imaging performed (bilateral mammogram) at [facility] today shows no evidence of malignancy, BIRADS [...] symptoms. Jeanine Lobato APRN Surgical Oncology P [phone] F [phone] [facility] documented in this encounter Plan of [...] mammogram documented in this encounter Care Teams Caster Helper Relationship Specialty Start Date End Date Ana Her MD [facility] [address] [facility] [address] [place] [address] PCP - General 07/29/13 documented as of this encounter
--- OUTSIDE RECORDS SUMMARY | 2024-05-13 11:18 | XMS_ITS | Encounter Summary ---
[place] [address] Care Team Providers Care Receiver/Laborer Name Role Phone Ana Her MD Primary Care Provider [phone] Encounter Details Date Type Department Care Team (Late st Contact Info) Description 03/30/2017 11:19 AM EST Anesthesia Event [place] [address] Bridgette Mclaughlin MD Collins, Sarah J, GARAGE ATTENDANT [address] [place] [address] Anesthesia Record Procedure Summary Procedure Name Responsible [...] 0815; median cubital vein (antecubital fossa), right; [id number] catheter system; 20 gauge, 1 in length; [...] Bridgette Mclaughlin - 03/30/2017 2:13 PM EST [facility] Department of Anesthesiology Post-procedure Note Patient: Digna Olson Procedure Summary Date Anesthesia Start Anesthesia Stop Room / Location 03/30/17 1119 1239 [facility] OR 24 / MH MAIN OR [...] All Anesthesia Providers: Anesthesiologist: Bridgette Mclaughlin MD GARAGE ATTENDANT: Laura Koo CRNA Most Recent Vitals: 03/30/17 [...] risks discussed with patient. Plan discussed with GARAGE ATTENDANT. [facility] Staff Note documented in this encounter Plan [...] r documented in this encounter Care Teams Receiver/Laborer Relationship Specialty Start Date End Date Ana Her MD [facility] [address] [place] [address] PCP - General 07/29/13 documented as of this encounter
--- OUTSIDE RECORDS SUMMARY | 2024-05-13 11:18 | XMS_ITS | Encounter Summary ---
Author Organization [place] [address] Care Team Providers Care Graphite Disk Assembler Name Role Phone Ana Her MD Primary Care Provider [phone] Reason for Visit * Reason Comments Follow-up Encounter Details Date Type Department Care Team (Late st Contact Info) Description 05/31/2019 11:45 AM EST Office Visit H[place]ology [place] [phone] Ricky Lowry MD Malignant neoplasm of lower-outer [...] ??Excision with image-guided localization ?Lymph Node Sampling: ??[place] lymph node(s) ?Specimen Laterality: ??Left Tumor ?Histologic [...] ??DCIS not present in specimen Lymph Nodes ?[place] Lymph Nodes: [place] lymph node biopsy performed ?Number of [place] Nodes Examined: ??3 ?Number of Lymph Node(s) [...] Spinal stenosis > A Fib. Cardiology at [facility]. S/P successful cardioversion May 2018. [...] positive documented in this encounter Care Teams Graphite Disk Assembler Relationship Specialty Start Date End Date Ana Her MD [facility] [address] [facility] 1 [place] [address] PCP - General 07/29/13 documented as of this encounter
--- OUTSIDE RECORDS SUMMARY | 2024-05-13 11:18 | XMS_ITS | Encounter Summary ---
Author Organization [facility] [place] [address] Care Team Providers Care Grinder Setup Operator Name Role Phone Ana Her MD Primary Care Provider [phone] Reason for Visit * Reason Comments Follow Up Surgery Encounter Details Date Type Department Care Team (Late st Contact Info) Description 07/13/2017 1:30 PM EDT Office [place] [phone] Hiral Padgett, WENDY History of breast cancer [...] with image-guided localization ?Lymph Node Sampling: ?? [place] lymph node(s) ?Specimen Laterality: ?? Left Tumor [...] ?DCIS not present in specimen Lymph Nodes ?[place] Lymph Nodes: ?? [place] lymph node biopsy performed ?Number of [place] Nodes Examined: ?3 ?Number of Lymph Node(s) [...] breast documented in this encounter Care Teams Grinder Setup Operator Relationship Specialty Start Date End Date Ana Her MD [facility] [address] [place] [address] PCP - General 07/29/13 documented as of this encounter
--- OUTSIDE RECORDS SUMMARY | 2024-05-13 11:18 | XMS_ITS | Encounter Summary ---
[place] [address] Care Team Providers Care Quality Management Nurse Name Role Phone Ana Her MD Primary Care Provider [phone] Encounter Details Date Type Department Care Team (Late st Contact Info) Description 05/10/2018 2:15 PM EST Office [place] [address] Hiral Padgett, WENDY History of breast cancer [...] with image-guided localization ?Lymph Node Sampling: ?? [place] lymph node(s) ?Specimen Laterality: ?? Left Tumor [...] ?DCIS not present in specimen Lymph Nodes ?[place] Lymph Nodes: ?? [place] lymph node biopsy performed ?Number of [place] Nodes Examined: ?3 ?Number of Lymph Node(s) [...] mammogram today is cat 2. Leaving for [place] later today for a cardiac ablation/a fib [...] breast documented in this encounter Care Teams Quality Management Nurse Relationship Specialty Start Date End Date Ana Her MD [address] [place] [address] PCP - General 07/29/13 documented as of this encounter
--- OUTSIDE RECORDS SUMMARY | 2024-05-13 11:18 | XMS_ITS | Encounter Summary ---
Author Organization [facility] [place] [address] Care Team Providers Care Wool Grader Name Role Phone Ana Her MD Primary Care Provider [phone] Encounter Details Date Type Department Care Team (Late st Contact Info) Description 10/23/2017 9:43 AM EDT - 10/23/2017 11:59 PM EDT Hospital En[place] [phone] Hiral Padgett, WENDY History of breast cancer [...] encounter Results * Mammo Screening Cad and Jreamy Left (10/23/2017 10:08 AM EDT) Anatomical Region [...] breast documented in this encounter Care Teams Wool Grader Relationship Specialty Start Date End Date Ana Her MD [address] [place] [address] PCP - General 07/29/13 documented as of this encounter
--- OUTSIDE RECORDS SUMMARY | 2024-05-13 11:18 | XMS_ITS | Encounter Summary ---
[place] [address] Care Team Providers Care Gunner'S Mate G Name Role Phone Ana Her MD Primary Care Provider [phone] Encounter Details Date Type Department Care Team (Latest Contact Info) Description 03/03/2017 7:55 AM EDT Laboratory Appointment Lab [address] [place] [address] Malignant neoplasm of left breast in female, [...] Absolute 6.45(H) 1.70 - 6.10 x10(3)/mc L [facility] Lymph % 14.4 % [facility] Lymphocytes Abs 1.3 0.9 - 3.2 x10(3)/ L [facility] Monocyte % 5.6 % [facility] Monocyte Abs 0.5 0.3 - 0.9 x10(3)/ L [facility] Eos % 6.1 % [facility] Eosinophils Abs 0.5(H) 0.0 - 0.4 x10(3)/ L [facility] Basophil % 0.6 % [facility] Baso Absolute 0.0 0.0 - 0.1 x10(3)/ L [facility] Immature Gran % 0.50 % [facility] Comment: Immature granulocytes(IG's)percentage and absolute count will include metamyelocytes, myelocytes, and promyelocytes. Blood smears from CBCs yielding IG's will be scanned manually for concordance. If this scan disagrees with the automated IG or if promyelocytes are noted, a manual differential will be performed. Immature Gran Absolute 0.04 0.00 - 0.04 x10(3)/mc L [facility] Blood specimen (specimen) 03/03/2017 7:50 AM EDT 03/03/2017 8:03 AM EDT Narrative Resulting Agency Comment Spec In Lab Malika Chen MD HEMATOLOGY ORDERABL ES [facility] [place] [address] * (ABNORMAL) Hemogram (03/03/2017 7:50 AM EDT) White Blood Cell 8.8 4.0 - 9.5 x10(3)/mc L [facility] Red Blood Cell 3.80(L) 4.00 - 5.21 x10(6)/mc L [facility] Hemoglobin 12.3 11.7 - 15.5 gm/dL [facility] Hematocrit 36.3 35.7 - 45.8 % [facility] Mean Cell Volume 95.5(H) 82.6 - 94.4 fL [facility] Mean Cell Hemoglobin 32.4(H) 27.1 - 32.0 pg [facility] Mean Cell Hemoglobin Concentration 33.9 31.7 - 35.0 gm/dL [facility] Platelet 156 145 - 357 x10(3)/ L [facility] RDW Standard Deviation 48.3(H) 37.0 - 46.0 [facility] RDW coefficient of variation 13.9 11.5 - 14.1 % [facility] Mean Platelet Volume 11.9 7.6 - 12.9 fL [facility] NRBC% auto 0.0 % [facility] NRBC Absolute 0.000 0.000 - 0.000 x10(3)/ L [facility] Blood specimen (specimen) 03/03/2017 7:50 AM EDT 03/03/2017 8:03 AM EDT Narrative Resulting Agency Comment Spec In Lab Malika Chen MD HEMATOLOGY ORDERABL ES [facility] [place] [address] * (ABNORMAL) Comprehensive metabolic panel (non-fasting) (03/03/2017 7:50 AM EDT) Glucose 139 65 - 199 mg/dL [facility] Comment:Diabetes: >=200 mg/d L plus symptoms Blood Urea Nitrogen 20(H) 8 - 18 mg/dL [facility] Creatinine 0.95 0.70 - 1.20 mg/dL [facility] Sodium 141 135 - 145 mmol/L [facility] Potassium 4.8 3.5 - 5.0 mmol/L [facility] Comment: Please note: ??Patients with WBC >100,000 may have falsely elevated Potassium levels. ??For accurate Potassium quantification in these patients send serum separator tube (gold top) for subsequent determinations. ??Contact the Clinical Chemistry Laboratory if there are any questions. Chloride 101 98 - 107 mmol/L [facility] Carbon Dioxide 26 22 - 31 mmol/L [facility] Anion Gap 14 5 - 15 mmol/L [facility] Calcium 9.3 8.5 - 10.5 mg/dL [facility] Protein, Total 6.9 6.1 - 8.0 gm/dL [facility] Albumin 4.2 3.2 - 5.2 gm/dL [facility] Aspartate Aminotransferase 17 0 - 30 unit/L [facility] Alanine Aminotransferase 16 0 - 30 unit/L [facility] Alkaline Phosphatase 75 40 - 104 unit/L [facility] Bilirubin, Total 0.5 0.2 - 1.3 mg/dL [facility] Est Glomerular Filtration Rate 58(L) >=60 [facility] Comment: The reported eGFR should be multiplied by 1.2 for patients. The MDRD is not an appropriate measure of renal function for patients with body mass extremes or in patients with acute kidney failure. http://[employer]Emp.com/DHnkdep http://[employer].com/DHMCnkf Blood specimen (specimen) 03/03/2017 7:50 AM EDT 03/03/2017 8:03 AM EDT Narrative Resulting Agency Comment Spec In Lab Malika Chen MD [place] [address] documented in this encounter Visit Diagnoses Diagnosis Malignant neoplasm of left breast in female, estrogen receptor positive, unspecified site of breast documented in this encounter Care Teams Gunner'S Mate G Relationship Specialty Start Date End Date Ana Her MD [address] [place] [address] PCP - General 07/29/13 documented as of this encounter
--- OUTSIDE RECORDS SUMMARY | 2024-05-13 11:18 | XMS_ITS | Encounter Summary ---
[place] [address] Care Team Providers Care Director Of Student Services Name Role Phone Ana Her MD Primary Care Provider [phone] Reason for Visit * Reason Comments Schedule Office Case Encounter Details Date Type Department Care Team (Late st Contact Info) Description 04/23/2017 2:00 PM EST Office Visit Hematology [place] [phone] Ricky Lowry MD Malignant neoplasm of lower-outer [...] ??Excision with image-guided localization ?Lymph Node Sampling: ??[place] lymph node(s) ?Specimen Laterality: ??Left Tumor ?Histologic [...] ??DCIS not present in specimen Lymph Nodes ?[place] Lymph Nodes: [place] lymph node biopsy performed ?Number of [place] Nodes Examined: ??3 ?Number of Lymph Node(s) [...] DEXA scan was in this year at [facility] [...] positive documented in this encounter Care Teams Director Of Student Services Relationship Specialty Start Date End Date Ana Her MD [address] [place] [address] PCP - General 07/29/13 documented as of this encounter
--- OUTSIDE RECORDS SUMMARY | 2024-05-13 11:19 | XMS_ITS | Encounter Summary ---
Author Organization [facility] Address [address] [place] [address] Care Team Providers Care Salt Lifter Name Role Phone Unknown, Provider MD Primary Care Provider Unava ilable Encounter Details Date Type Department Care Team (Late st Contact Info) Description 10/26/2022 Lab Requisition [facility] Pathology & Laboratory Medicine - [facility] [address] [place] [address] Outr Resulting Lab, Provider Social History Tobacco [...] Neg and Giardia Antigen Neg 13:48 EDT [facility] Feces SPECIMEN FROM RECTUM / Unknown 10/25/2022 15:00 EDT 10/26/2022 15:25 EDT us Provider Outr Resulting Lab MICROBIOLOGY - GENER AL ORDERABLES Final Result [facility] [address] [place] [address] * FECAL BACTERIAL PATHOGENS BY PCR (10/25/2022 15:00 EDT) Salmonella PCR Negative Negative 10/26/2022 19:17 EDT [facility] Shigella/Enteroin vasive E. coli Negative Negative 10/26/2022 19:17 EDT [facility] HN LAB CAMPYLOBACTER PCR Negative Negative 10/26/2022 19:17 EDT [facility] Shiga Toxin PCR Negative Negative 19:17 EDT [facility] Feces SPECIMEN FROM RECTUM / Unknown 10/25/2022 15:00 EDT 10/26/2022 15:25 EDT us Provider Outr Resulting Lab MICROBIOLOGY - GENER AL ORDERABLES Final Result Performing Organization Address [facility] Co de Phone Number [facility] [address] [place] [address] * OVA/PARASITE EXAM (10/25/2022 15:00 EDT) Parasite No ova and parasites seen. 10/28/2022 15:08 EDT [facility] Feces SPECIMEN FROM RECTUM / Unknown 10/25/2022 15:00 EDT 10/26/2022 15:25 EDT Narrative [facility] - 10/28/2022 15:08 EDT (If Cryptosporidium, Cyclospora, or Microsporidium are suspected, specific tests must be requested.) Single negative specimen does not rule out the possibility of a parasitic infection. us Provider Outr Resulting Lab MICROBIOLOGY - GENER AL ORDERABLES Final Result Performing Organization Address City/[facility]/ZIP Co de Phone Number [facility] [address] [place] [address] documented in this encounter Visit Diagnoses Not on filedocumented in this encounter Care Teams Salt Lifter Relationship Specialty Start Date End Date Unknown, Provider, PCP - General 9/12/14 documented as of this encounter
--- OUTSIDE RECORDS SUMMARY | 2024-05-13 11:19 | XMS_ITS | Encounter Summary ---
Author Organization [facility] Address One [facility] [place] [address] Care Team Providers Care Parenting Skills Instructor Name Role Phone Ana Her MD Primary Care Provider [phone] Encounter Details Date Type Department Care Team (Late st Contact Info) Description 09/13/2015 Interpretation Only Radiology 1 [facility] [place] [address] Unknown None Social History Tobacco Use Types [...] 6:56 AM EDT APD Historical Result Principal Van Helper: ??MAE ??ESCHBACH IMAGE-INTENSIFIER FILMS: INDICATION: ??Right L4 foraminotomy. FINDINGS: A total of 5.8 seconds of fluoro time was utilized by Geraldine Claros MD. ??Estimated dose is 5.96 mGy. ??Two image-intensifier films record the event. ??They show the lumbosacral junction in the lateral projection with a surgical instrument indicating the level of L4. ??No Radiologist was present for this exam. Mae Shelley DO TOBIN/mn [id number] Procedure Note Unknown - 11/01/2018 APD Historical Result Principal Van Helper: MAE SHELLEY IMAGE-INTENSIFIER FILMS: INDICATION: Right L4 foraminotomy. FINDINGS: A total of 5.8 seconds of fluoro time was utilized by Geraldine Claros MD. Estimated dose is 5.96 mGy. Two image-intensifier films record the event. They show thelumbosacral junction in the lateral projection with a surgical instrument indicating the level of L4.No Radiologist was present for this exam. Mae Shelley DO TOBIN/mn [id number] Unknown IMG FLUORO ORDERABLE S documented in this encounter Visit Diagnoses Not on filedocumented in this encounter Care Teams Parenting Skills Instructor Relationship Specialty Start Date End Date Ana Her MD [address] [place] [address] PCP - General 07/29/13 documented as of this encounter
--- OUTSIDE RECORDS SUMMARY | 2024-05-13 11:19 | XMS_ITS | Encounter Summary ---
Author Organization [facility] Address [address] [place] [address] Care Team Providers Care Ergonomist Name Role Phone Unknown, Provider Primary Care Provider Unava ilable Encounter Details Date Type Department Care Team (Late st Contact Info) Description 03/17/2017 Results Only [facility] [phone] Kat Lazaro MD [facility] [facility] [address] [place] [id number] Social History Tobacco Use Types Packs/Day Years [...] ? DIGNA KIMBROUGH ? Accession #: ? [id number] ? : ? 1945 (Age: 71) ??F [...] (ASCP) 03/18/2017 8:14 AM End of Report [facility] 03/17/2017 16:1 5 EST 03/17/2017 16:15 EST us Kat Lazaro MD PATHOLOGY ORDERABLES Fin al Result [facility] [address] [place] [address] documented in this encounter Visit Diagnoses Not on filedocumented in this encounter Care Teams Ergonomist Relationship Specialty Start Date End Date Unknown, Provider, PCP - General 01/13/14 documented as of this encounter
--- OUTSIDE RECORDS SUMMARY | 2024-05-13 11:19 | XMS_ITS | Encounter Summary ---
Author Organization [place] [address] Care Team Providers Care Lawyer Criminal Name Role Phone Ana Her MD Primary Care Provider Encounter Details Date Type Department Care Team (Latest Contact Info) Description 02/25/2017 1:32 PM EDT - 02/25/2017 1:35 PM EDT Hospital [place] [phone] Maryam Yee MD [facility] [place] [address] Abnormal mammogram Discharge Disposition: Home Social History [...] PM EDT 02/25/2017 3:02 PM EDT Narrative [facility] - 02/25/2017 3:02 PM EDT Specimen requisition ordered. ??Separate Pathology report to follow Enzo Burkett MD PATHOLOGY/CYTOLOGY O SHANTAL [facility] [place] [address] documented in this encounter Visit Diagnoses Diagnosis [...] mg documented in this encounter Care Teams Lawyer Criminal Relationship Specialty Start Date End Date Ana Her MD [address] [place] [address] PCP - General 07/29/13 documented as of this encounter
--- OUTSIDE RECORDS SUMMARY | 2024-05-13 11:19 | XMS_ITS | Encounter Summary ---
[place] [address] Care Team Providers Care Sales Agent Insurance Name Role Phone Ana Her MD Primary Care Provider [phone] Reason for Visit * Reason Comments Low Back Pain Encounter Details Date Type Department Care Team (Late st Contact Info) Description 08/30/2014 8:35 AM EDT Office [place] [phone] Michelle Hurtado APRN [facility] [place] [address] Neurogenic claudication due to lumbar spinal stenosis [...] this encounter Progress Notes * Michelle Hurtado, PICTURE FRAMES INSPECTOR - 08/30/2014 9:37 AM EDT CHIEF COMPLAINT: [...] activity. 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 MEDICATIONS & [...] care of this patient. Michelle Hurtado MS, PICTURE FRAMES INSPECTOR, TRACK LAYING SUPERVISOR-C [facility] documented in this encounter Plan of Treatment Not on file documented as of this encounter Visit Diagnoses Diagnosis Neurogenic claudication due to lumbar spinal stenosis Spinal stenosis, lumbar region, with neurogenic claudication documented in this encounter Care Teams Sales Agent Insurance Relationship Specialty Start Date End Date Ana Her MD [address] [place] [address] PCP - General 07/29/13 documented as of this encounter
--- OUTSIDE RECORDS SUMMARY | 2024-05-13 11:19 | XMS_ITS | Clinical Summary ---
Author Organization [facility] Address [address] [place] [address] Care Team Providers Care Research Hydrologist Name Role Phone Unknown, Provider MD Primary [...] COVID-19 Vaccine (2023- season) 2024 Care Teams Research Hydrologist Relationship Specialty Start Date End Date Unknown, Provider, PCP - General 01/13/14
--- OUTSIDE RECORDS SUMMARY | 2024-05-13 11:19 | XMS_ITS | Encounter Summary ---
Author Organization [facility] Address [address] [place] [address] Care Team Providers Care Timber Repairer Name Role Phone Unavailable Primary Care Provider Unavailabl e Encounter Details Date Type Department Care Team (Latest Contact Info) Description 01/10/2014 20:50 EDT - 01/10/2014 23:59 EDT Hospital Encounter [facility] [address] [place] [address] Unknown, Provider, MD Discharge Disposition: Home or [...]
--- OUTSIDE RECORDS SUMMARY | 2024-05-13 11:19 | XMS_ITS | Encounter Summary ---
Author Organization [facility] Address [facility] [place] [address] Care Team Providers Care Professor Of Music Name Role Phone Unavailable Primary Care Provider Unavailabl e Encounter Details Date Type Department Care Team (Latest Contact Info) Description 12/08/2008 - 12/08/2008 11:59 PM EDT Hospital Encounter Radiology Library [place] [facility] [place] [address] Jackie Cisneros APRN [facility] [place] [address] [place] [address] Discharge Disposition: Home Social History Tobacco Use [...] Only Mammo (12/08/2008 12:00 AM EDT) Narrative [facility] - 02/23/2017 3:30 PM EDT This exam is for storage only and is auto-finalizing. Jackie Cisneros APRN IMG FILM LIBRARY ORD ERABLES NADINE Sethi documented in this encounter Visit Diagnoses Not on filedocumented in this encounter
--- OUTSIDE RECORDS SUMMARY | 2024-05-13 11:19 | XMS_ITS | Encounter Summary ---
Author Organization [facility] Address [facility] [place] [address] Care Team Providers Care Roll Forger Name Role Phone Unavailable Primary Care Provider Unavailabl e Encounter Details Date Type Department Care Team (Latest Contact Info) Description 03/19/2006 - 03/19/2006 11:59 PM EST Hospital Encounter Radiology Library at [place] [address] Jackie Cisneros APRN [facility] [place] [address] [place] [address] Discharge Disposition: Home Social History Tobacco Use [...]
--- OUTSIDE RECORDS SUMMARY | 2024-05-13 11:19 | XMS_ITS | Encounter Summary ---
Author Organization [facility] [place] [address] Care Team Providers Care Manager Development Name Role Phone Ana Her MD Primary Care Provider [phone] Encounter Details Date Type Department Care Team (Late st Contact Info) Description 08/16/2014 Orders Only Functional [facility] Program at [facility] [address] [place] [address] Khari Martínez MD Social History Tobacco Use [...] This is a Non-reportable exam Procedure Note LARYR, UNSIGNED REPORT - 08/21/2014 This is a Non-reportable exam Khari Martínez MD IMG FILM LIBRARY ORD ERABLES documented in this encounter Visit Diagnoses Not on filedocumented in this encounter Care Teams Manager Development Relationship Specialty Start Date End Date Ana Her MD [facility] [address] [facility] [address] [place] [address] PCP - General 07/29/13 documented as of this encounter
--- OUTSIDE RECORDS SUMMARY | 2024-05-13 11:19 | XMS_ITS | Encounter Summary ---
Author Organization [facility] [place] [address] Care Team Providers Care Brazer Resistance Name Role Phone Ana Her MD Primary Care Provider [phone] Encounter Details Date Type Department Care Team (Latest Contact Info) Description 02/25/2017 1:36 PM EDT - 02/25/2017 2:58 PM EDT Hospital [place] [phone] Maryam Yee MD [facility] [place] [address] Abnormal mammogram Discharge Disposition: Home Social History [...] unspecified documented in this encounter Care Teams Brazer Resistance Relationship Specialty Start Date End Date Ana Her MD [address] [place] [address] [address] [place] [address] PCP - General 07/29/13 documented as of this encounter
--- OUTSIDE RECORDS SUMMARY | 2024-05-13 11:19 | XMS_ITS | Encounter Summary ---
Author Organization [facility] Address [facility] [place] [address] Care Team Providers Care Caterpillar Driver Name Role Phone Ana Her MD Primary Care Provider [phone] Encounter Details Date Type Department Care Team (Latest Contact Info) Description 02/23/2017 3:50 PM EDT - 02/23/2017 11:59 PM EDT Hospital Encounter Radiology Library at [facility] [place] [phone] Jackie Cisneros APRN [address] [place] [address] Left breast mass Discharge Disposition: Home Social [...] recommended. Please note: The interpretation of the [facility] Breast Imaging Radiologist subspecialist may differ from the original radiologists interpretation. This is usually not due to a deficiency of the original interpreting radiologist, rather due to the greater skill level afforded by sub-specialization in the field and/or reasonable variations in interpretations. If you have a concern regarding the D-H interpretation you may contact the [facility] Breast [employer] Auto Repair Teacher Office at . I have personally reviewed [...] the care of this patient. STUDIES FROM: [facility] DATES: Screening mammogram 02/12/2017, diagnostic mammogram [...] alter the care of thispatient. STUDIES FROM: [facility] DATES: Screening mammogram 02/12/2017, diagnostic mammogram [...] recommended. Please note: The interpretation of the [facility] BreastImaging Radiologist subspecialist may differ from the original radiologists interpretation. This is usually not due to a deficiency of the original interpreting radiologist, rather due to the greater skill level affordedby sub-specialization in the field and/or reasonable variations ininterpretations. If you have a concern regarding the D-H interpretation you may [facility] [employer] Teacher Office at . I have personally reviewed the image(s) and the residents interpretationand agree with the findings, ROBERT THOMPSON at 02/24/2017 8:41 AM 8:41 AM Jackie Cisneros WENDY IMG OUTSIDE INTERPRE TATION ORDERABLES documented in this encounter Visit Diagnoses Diagnosis Left breast mass Lump or mass in breast documented in this encounter Care Teams Caterpillar Driver Relationship Specialty Start Date End Date Ana Her MD [address] [place] [address] PCP - General 07/29/13 documented as of this encounter
--- OUTSIDE RECORDS SUMMARY | 2024-05-13 11:19 | XMS_ITS | Encounter Summary ---
Author Organization [facility] Address [facility] [place] [address] Care Team Providers Care Coater Carbon Paper Name Role Phone Unavailable Primary Care Provider Unavailabl e Encounter Details Date Type Department Care Team (Latest Contact Info) Description 01/29/2013 - 01/29/2013 11:59 PM EDT Hospital Encounter Radiology Library at [facility] [place] [address] Jackie Cisneros APRN [facility] [place] [place] [address] Discharge Disposition: Home Social History Tobacco Use [...] Only Mammo (01/29/2013 12:00 AM EDT) Narrative [facility] - 02/23/2017 3:26 PM EDT This exam is for storage only and is auto-finalizing. Jackie Cisneros APRN IMG FILM LIBRARY ORD ERABLES NADINE Sethi documented in this encounter Visit Diagnoses Not on filedocumented in this encounter
--- OUTSIDE RECORDS SUMMARY | 2024-05-13 11:19 | XMS_ITS | Encounter Summary ---
Author Organization [facility] Address [address] [place] [address] Care Team Providers Care Enrobing Machine Feeder Name Role Phone Unknown, Provider MD Primary Care Provider Unava ilable Encounter Details Date Type Department Care Team (Late st Contact Info) Description 08/12/2021 Lab Requisition [facility] Pathology & Laboratory Medicine - [facility] [address] [place] [address] Outr Resulting Lab, Provider Social History Tobacco [...] Priority Date/Time Associated Diagnosis Comments ZZCOVID-19 TEST [facility] PCR Today 08/12/2021 15:00 EDT COVID-19 TESTING Routine 08/12/2021 15:0 0 EDT documented in this encounter Results * COVID-19 TEST [facility] (08/12/2021 15:00 EDT) Swab 08/12/2021 15:0 0 EDT 08/13/2021 16:56 EDT us Provider Outr Resulting Lab MICROBIOLOGY - GENER AL ORDERABLES Final Result [facility] [address] [place] [address] * COVID-19 TESTING (08/12/2021 15:00 EDT) COVID-19 rt-PCR Result Negative Negative 08/14/2021 11:53 EDT [facility] Comment: This test has [...] was performed using the palomo SARS-CoV-2 assay ([employer] on the Palomo 6800 System Performing Lab Palomo 6800 [facility] 08/14/2021 11:53 EDT [facility] Swab 08/12/2021 15:0 0 EDT 08/13/2021 16:56 EDT us Provider Outr Resulting Lab MICROBIOLOGY - GENER AL ORDERABLES Final Result [facility] [address] [place] [address] documented in this encounter Visit Diagnoses Not on filedocumented in this encounter Care Teams Enrobing Machine Feeder Relationship Specialty Start Date End Date Unknown, Provider, PCP - General 01/13/14 documented as of this encounter
--- OUTSIDE RECORDS SUMMARY | 2024-05-13 11:19 | XMS_ITS | Referral Summary ---
Author Organization [facility] Address [address] [place] [address] Care Team Providers Care Epic Stork Specialists Name Role Phone Unknown, Provider MD Primary Care Provider Unava ilable Social History Tobacco Use Types Packs/Day Years Used Date Smoking Tobacco: Never Assessed Comments Unknown Sex and Gender Information Value Date Recorded Sex Assigned at Not on file Legal Sex Female 9:32 EDT Gender Identity Not on file Sexual Orientation Not on file Plan of Treatment Not on file Care Teams Epic Stork Specialists Relationship Specialty Start Date End Date Unknown, Provider, PCP - General 01/13/14
--- OUTSIDE RECORDS SUMMARY | 2024-05-13 11:19 | XMS_ITS | Encounter Summary ---
Author Organization [facility] [place] [address] Care Team Providers Care Payroll Tax Analyst Name Role Phone Ana Her MD Primary Care Provider [phone] Encounter Details Date Type Department Care Team (Latest Contact Info) Description 02/17/2017 12:15 AM EDT - 02/17/2017 11:59 PM EDT Hospital Encounter Radiology Library at [facility] [place] [address] Maryam Yee MD [facility] [place] [address] Screening breast examination Discharge Disposition: Home Social [...] Mammo (02/17/2017 12:15 AM EDT) Narrative [facility] - 02/19/2017 2:01 PM EDT This exam is for storage only and is auto-finalizing. Maryam Yee MD IMG FILM LIBRARY O RDERABLES [place], [place] documented in this encounter Visit Diagnoses Diagnosis Screening breast examination Other screening breast examination documented in this encounter Care Teams Payroll Tax Analyst Relationship Specialty Start Date End Date Ana Her MD [address] [place] [address] PCP - General 07/29/13 documented as of this encounter
--- OUTSIDE RECORDS SUMMARY | 2024-05-13 11:19 | XMS_ITS | Encounter Summary ---
Author Organization [facility] Address [facility] [place] [address] Care Team Providers Care Returned Telephone Equipment Appraiser Name Role Phone Unavailable Primary Care Provider Unavailabl e Encounter Details Date Type Department Care Team (Latest Contact Info) Description 04/04/2005 - 04/04/2005 11:59 PM EST Hospital Encounter Radiology Library at [facility] [place] [address] Jackie Cisneros APRN [facility] [place] [address] [place] [address] Discharge Disposition: Home Social History Tobacco Use [...]
--- OUTSIDE RECORDS SUMMARY | 2024-05-13 11:19 | XMS_ITS | Encounter Summary ---
Author Organization [facility] Address [facility] [place] [address] Care Team Providers Care Shell Sieve Operator Name Role Phone Ana Her MD Primary Care Provider [phone] Encounter Details Date Type Department Care Team (Latest Contact Info) Description 02/12/2017 - 02/12/2017 11:59 PM EDT Hospital Encounter Radiology Library [place] [facility] [place] [address] Maryam Yee MD [facility] [place] [address] Screening breast examination Discharge Disposition: Home Social [...] Only Mammo (02/12/2017 12:00 AM EDT) Narrative [facility] - 02/19/2017 1:47 PM EDT This exam is for storage only and is auto-finalizing. Maryam Yee MD IMG FILM LIBRARY O RDERABLES Performing Organization Address City/State/[facility] Co de Phone Number [place], [place] documented in this encounter Visit Diagnoses Diagnosis Screening breast examination Other screening breast examination documented in this encounter Care Teams Shell Sieve Operator Relationship Specialty Start Date End Date Ana Her MD [address] [place] [address] PCP - General 07/29/13 documented as of this encounter
--- OUTSIDE RECORDS SUMMARY | 2024-05-13 11:19 | XMS_ITS | Encounter Summary ---
[place] [address] Care Team Providers Care Tin Dipper Name Role Phone Ana Her MD Primary Care Provider [phone] 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 * Surgical (Routine) - Closed Specialty Diagnoses / Procedures Referred By Christiano hackett Referred To Contact Orthopaedics Diagnoses Lumbar spinal stenosis Michelle Hurtado APRN [facility] [place] [address] [facility] [place] [address] [place] [address] Referral ID Status Reason Start Date Expiration Date V isits Requested Visits Authorized [id number] Closed Consult, Test & Treat 09/08/2014 09/08/2015 3 3 Encounter Details Date Type Department Care Team (Late st Contact Info) Description 09/08/2014 Orders [place] [address] Michelle Hurtado [facility] [place] [address] Lumbar spinal stenosis Social History Tobacco Use [...] claudication documented in this encounter Care Teams Tin Dipper Relationship Specialty Start Date End Date Ana Her MD [facility] [address] [facility] [address] [place] [address] PCP - General 07/29/13 documented as of this encounter
--- OUTSIDE RECORDS SUMMARY | 2024-05-13 11:19 | XMS_ITS | Encounter Summary ---
Author Organization [facility] Address [facility] [place] [address] Care Team Providers Care Manager Deli Name Role Phone Ana Her MD Primary Care Provider [phone] Encounter Details Date Type Department Care Team (Latest Contact Info) Description 10/28/2016 - 10/28/2016 11:59 PM EDT Hospital Encounter Radiology Library at [facility] [place] [address] Ricky Lowry MD Discharge Disposition: Home Social [...] Images (10/28/2016 12:00 AM EDT) Narrative [facility] 3] - 04/24/2017 2:13 PM EST This exam is for storage only and is auto-finalizing. Ricky Lowry MD IMG FILM LIBRARY ORD ERABLES Performing Organization Address City/State/[facility] [[email or web address]] Co de Phone Number [place], [place] documented in this encounter Visit Diagnoses Not on filedocumented in this encounter Care Teams Manager Deli Relationship Specialty Start Date End Date Ana Her MD [address] [place] [address] PCP - General 07/29/13 documented as of this encounter
--- OUTSIDE RECORDS SUMMARY | 2024-05-13 11:19 | XMS_ITS | Encounter Summary ---
Author Organization Count Includes [facility] Address [facility] [place] [address] Care Team Providers Care Correctional Security Officer Name Role Phone Ana Her MD Primary Care Provider [phone] Encounter Details Date Type Department Care Team (Latest Contact Info) Description 02/17/2017 - 02/17/2017 12:14 AM EDT Hospital Encounter Radiology Library at [facility] [place] [address] Maryam Yee MD [facility] [place] [address] Screening breast examination Discharge Disposition: Home Social [...] Only Mammo (02/17/2017 12:00 AM EDT) Narrative [facility] - 02/19/2017 1:59 PM EDT This exam is for storage only and is auto-finalizing. Maryam Yee MD IMG FILM LIBRARY O RDERABLES Performing Organization Address City/State/[facility] Co de Phone Number [place], [place] documented in this encounter Visit Diagnoses Diagnosis Screening breast examination Other screening breast examination documented in this encounter Care Teams Correctional Security Officer Relationship Specialty Start Date End Date Ana Her MD [address] [place] [address] PCP - General 07/29/13 documented as of this encounter
--- OUTSIDE RECORDS SUMMARY | 2024-05-13 11:19 | XMS_ITS | Encounter Summary ---
Author Organization [facility] Address [address] [place] [address] Care Team Providers Care Guest Services Name Role Phone Unknown, Provider Primary Care Provider Unava ilable Encounter Details Date Type Department Care Team (Late st Contact Info) Description 11/19/2023 Lab Requisition [facility] Pathology & Laboratory Medicine - [facility] [address], [place] [address] Outr Resulting Lab, Provider Social History Tobacco [...] 201 - 352 mg/dL 11/20/2023 9:45 EDT [facility] Blood VENOUS BLOOD / Unknown 11/19/2023 6:05 EDT 11/19/2023 17:32 EDT us Provider Outr Resulting Lab CHEMISTRY & BLOOD GA S ORDERABLES Final Result [facility] [address] [place], [place] [address] documented in this encounter Visit Diagnoses Not on filedocumented in this encounter Care Teams Guest Services Relationship Specialty Start Date End Date Unknown, Provider, PCP - General 01/13/14 documented as of this encounter
--- OUTSIDE RECORDS SUMMARY | 2024-05-13 11:19 | XMS_ITS | Encounter Summary ---
[place] [address] Care Team Providers Care Administrative Support Technician Name Role Phone Ana Her MD Primary Care Provider [phone] Reason for Visit * Reason Comments Low Back Pain Bilateral Hip Pain when standing or wal jaquelin Encounter Details Date Type Department Care Team (Late st Contact Info) Description 09/12/2014 11:20 AM EDT Office [place] [id number] Kris Benoit MD Neurogenic claudication due to [...] pain free. Lumbar MRI from 08/16/2014 from [facility] is notable for multilevel degenerative changes L2-L3, L3-L4, L4-L5, L5-S1. At L2-L3, she has [id number]-[id number]-lfpmhc spinal stenosis, but she has no leg [...] claudication documented in this encounter Care Teams Administrative Support Technician Relationship Specialty Start Date End Date Ana Her MD [address] [place] [address] PCP - General 07/29/13 documented as of this encounter
--- OUTSIDE RECORDS SUMMARY | 2024-05-13 11:19 | XMS_ITS | Patient Health Record ---
Author Organization [facility] Address [address] [place] [address] Care Team Providers Care Time Stamp Assembler Name Role Phone Non Compass, Provider Primary [...] Medicare [address] [place] [id number] Digna Olson Self - patient is the insured [facility] Medicare Plan [address] [place], [place] [id number] Digna Olson Self - patient is the insured Medical (General) History Medical History History ICD Code Atrial fibrillation Hypertension Hypothyroidism Non insulin-dependent diabetes
--- OUTSIDE RECORDS SUMMARY | 2024-05-13 11:19 | XMS_ITS | Encounter Summary ---
[place] [address] Care Team Providers Care Fisher Trot Line Name Role Phone Ana Her MD Primary Care Provider [phone] Reason for Visit * Reason Onset Date Comments Referral 07/29/2013 Encounter Details Date Type Department Care Team (Late st Contact Info) Description 07/29/2013 [place] [phone] Sophia Palacios Referral Social History Tobacco Use [...] on filedocumented in this encounter Care Teams Fisher Trot Line Relationship Specialty Start Date End Date Ana Her MD [address] [facility] 1 [place] [address] PCP - General 07/29/13 documented as of this encounter
--- OUTSIDE RECORDS SUMMARY | 2024-05-13 11:19 | XMS_ITS | Encounter Summary ---
Author Organization [facility] Address [address] [place] [address] Care Team Providers Care Hospice Nurse Name Role Phone Unknown, Provider Primary Care Provider Unava ilable Encounter Details Date Type Department Care Team (Late st Contact Info) Description 01/20/2020 Lab Requisition [facility] Pathology & Laboratory Medicine - [facility] [address] [place] [address] Outr Resulting Lab, Provider Social History Tobacco [...] rt-PCR Result NEGATIVE Negative 01/21/2020 16:10 EDT [facility] Comment: 2019-novel Coronavirus [...] in accordance with CLIA regulations, [employer] [place] [employer] (CAP) guidelines (Jul 21, 2019), and FDA guidance (Jul 02, 2019). This test is only for use under the Food and Drug Administration's Emergency Use Authorization. Swab ENTIRE NASOPHARYNX / Unknown 01/20/2020 10:30 EDT 01/20/2020 15:35 EDT us Provider Outr Resulting Lab MICROBIOLOGY - GENER AL ORDERABLES Final Result Performing Organization Address City/State/[facility] Co de Phone Number [facility] [place], [place] * COVID-19 TESTING (01/20/2020 10:30 EDT) COVID-19 rt-PCR Result NEGATIVE Negative 01/21/2020 17:21 EDT [facility] Comment: 2019-novel Coronavirus (2019-nCoV) not [...] in accordance with CLIA regulations, [employer] [place] [employer] (CAP) guidelines (Jul 21, 2019), and FDA guidance (Jul 02, 2019). This test is only for use under the Food and Drug Administration's Emergency Use Authorization. Performing Lab [facility] 01/21/2020 17:[address] [facility] Swab 01/20/2020 10:3 0 EDT 01/20/2020 15:35 EDT us Provider Outr Resulting Lab MICROBIOLOGY - GENER AL ORDERABLES Final Result [facility] [address] [place] [address] [facility] [place], [place] documented in this encounter Visit Diagnoses Not on filedocumented in this encounter Care Teams Hospice Nurse Relationship Specialty Start Date End Date Unknown, Provider, PCP - General 01/13/14 documented as of this encounter
--- OUTSIDE RECORDS SUMMARY | 2024-05-13 11:19 | XMS_ITS | Encounter Summary ---
[place] [address] Care Team Providers Care Felt Finisher Name Role Phone Ana Her MD Primary Care Provider Encounter Details Date Type Department Care Team (Late st Contact Info) Description 07/26/2013 Orders [place] [address] Ana Her MD [facility] [address] [place] [address] Social History Tobacco Use Types Packs/Day Years [...] is a Non-reportable exam Ana Her MD [facility] [place]RARY ORD ERABLES documented in this encounter Visit Diagnoses Not on filedocumented in this encounter Care Teams Felt Finisher Relationship Specialty Start Date End Date Ana Her MD [address] [place] [address] PCP - General 07/29/13 documented as of this encounter
--- OUTSIDE RECORDS SUMMARY | 2024-05-13 11:19 | XMS_ITS | Encounter Summary ---
Author Organization [facility] Address [facility] [place] [address] Care Team Providers Care Poultry Dresser Name Role Phone Ana Her MD Primary Care Provider [phone] Encounter Details Date Type Department Care Team (Latest Contact Info) Description 04/24/2014 - 04/24/2014 11:59 PM EST Hospital Encounter Radiology Library at [facility] [place] [address] [facility] [place] [address] Screening breast examination Discharge Disposition: Home Social [...] Only Mammo (04/24/2014 12:00 AM EST) Narrative [facility] - 02/19/2017 1:46 PM EDT This exam is for storage only and is auto-finalizing. Maryam Yee MD IMG FILM LIBRARY O RDERABLES [place], [place] documented in this encounter Visit Diagnoses Diagnosis Screening breast examination Other screening breast examination documented in this encounter Care Teams Poultry Dresser Relationship Specialty Start Date End Date Ana Her MD [address] [facility] 1 [place] [address] PCP - General 07/29/13 documented as of this encounter
--- OUTSIDE RECORDS SUMMARY | 2024-05-13 11:19 | XMS_ITS | Encounter Summary ---
Author Organization [facility] Address [facility] [place] [address] Care Team Providers Care Fur Tinter Name Role Phone Unavailable Primary Care Provider Unavailabl e Encounter Details Date Type Department Care Team (Latest Contact Info) Description 12/25/2010 - 12/25/2010 11:59 PM EDT Hospital Encounter Radiology Library at [facility] [place] [address] Jackie Cisneros APRN [facility] [place] [address] Discharge Disposition: Home Social History Tobacco Use [...] Only Mammo (12/25/2010 12:00 AM EDT) Narrative [facility] - 02/23/2017 3:27 PM EDT This exam is for storage only and is auto-finalizing. Jackie Cisneros APRN IMG FILM LIBRARY ORD ERABLES NADINE Sethi documented in this encounter Visit Diagnoses Not on filedocumented in this encounter
--- OUTSIDE RECORDS SUMMARY | 2024-05-13 11:19 | XMS_ITS | Encounter Summary ---
Author Organization [facility] Address [facility] [place] [address] Care Team Providers Care College Basketball Coach Name Role Phone Unavailable Primary Care Provider Unavailabl e Encounter Details Date Type Department Care Team (Latest Contact Info) Description 11/12/2007 - 11/12/2007 11:59 PM EDT Hospital Encounter Radiology Library at [facility] [place] [address] Jackie Cisneros APRN [facility] [place] [address] [place] [address] Discharge Disposition: Home Social History Tobacco Use [...] Only Mammo (11/12/2007 12:00 AM EDT) Narrative [facility] - 02/23/2017 3:31 PM EDT This exam is for storage only and is auto-finalizing. Jackie Cisneros APRN IMG FILM LIBRARY ORD ERABLES NADINE Sethi documented in this encounter Visit Diagnoses Not on filedocumented in this encounter
--- OUTSIDE RECORDS SUMMARY | 2024-05-13 11:19 | XMS_ITS | Encounter Summary ---
Author Organization [facility] [place] [address] Care Team Providers Care Reuse Technician Name Role Phone Ana Her MD Primary Care Provider [phone] Encounter Details Date Type Department Care Team (Latest Contact Info) Description 02/25/2017 1:31 PM EDT Hospital [place] [address] Maryam Yee MD [facility] [place] [address] Abnormal mammogram Discharge Disposition: Home Social History [...] unspecified documented in this encounter Care Teams Reuse Technician Relationship Specialty Start Date End Date Ana Her MD [address] [place] [address] PCP - General 07/29/13 documented as of this encounter
--- OUTSIDE RECORDS SUMMARY | 2024-05-13 11:19 | XMS_ITS | Encounter Summary ---
Author Organization [facility] Address [facility] [place] [address] Care Team Providers Care Airport Traffic Controller Name Role Phone Unavailable Primary Care Provider Unavailabl e Encounter Details Date Type Department Care Team (Latest Contact Info) Description 12/19/2009 - 12/19/2009 11:59 PM EDT Hospital Encounter Radiology Library at [facility] [place] [address] Jackie Cisneros APRN [facility] [place] [address] Discharge Disposition: Home Social History Tobacco Use [...] Only Mammo (12/19/2009 12:00 AM EDT) Narrative [facility] - 02/23/2017 3:29 PM EDT This exam is for storage only and is auto-finalizing. Jackie Cisneros APRN IMG FILM LIBRARY ORD ERABLES NADINE Sethi documented in this encounter Visit Diagnoses Not on filedocumented in this encounter
--- OUTSIDE RECORDS SUMMARY | 2024-05-13 11:19 | XMS_ITS | Encounter Summary ---
Author Organization [facility] Address [address] [place] [address] Care Team Providers Care Middleware Engineer Name Role Phone Unknown, Provider MD Primary Care Provider Unava ilable Encounter Details Date Type Department Care Team (Late st Contact Info) Description 04/06/2022 Lab Requisition [facility] Pathology & Laboratory Medicine - [facility] [address] [place] [address] Outr Resulting Lab, Provider Social History Tobacco [...] Salmonella PCR Negative Negative 04/06/2022 22:54 EST [facility] Shigella/Enteroin vasive E. coli Negative Negative 04/06/2022 22:54 EST [facility] HN LAB CAMPYLOBACTER PCR Negative Negative 04/06/2022 22:54 EST [facility] Shiga Toxin PCR Negative Negative 22:54 EST [facility] Feces SPECIMEN FROM RECTUM / Unknown 04/05/2022 10:41 EST 04/06/2022 18:31 EST us Provider Outr Resulting Lab MICROBIOLOGY - GENER AL ORDERABLES Final Result [facility] [address] [place] [address] documented in this encounter Visit Diagnoses Not on filedocumented in this encounter Care Teams Middleware Engineer Relationship Specialty Start Date End Date Unknown, Provider, PCP - General 01/13/14 documented as of this encounter
--- OUTSIDE RECORDS SUMMARY | 2024-05-16 11:15 | XMS_ITS | Encounter Summary ---
[place] [address] Care Team Providers Care Multimedia Producer Name Role Phone Ana Her MD Primary Care Provider [phone] Encounter Details Date Type Department Care Team (Late st Contact Info) Description 12/17/2021 Telephone [place] [phone] Roma Estrada RN Social History Tobacco Use [...] on filedocumented in this encounter Care Teams Multimedia Producer Relationship Specialty Start Date End Date Ana Her MD [address] [place] [address] PCP - General 07/29/13 documented as of this encounter
--- OUTSIDE RECORDS SUMMARY | 2024-05-16 11:15 | XMS_ITS | Encounter Summary ---
Author Organization [facility] [place] [address] Care Team Providers Care Interface Control Officer Name Role Phone Ana Her MD Primary Care Provider [phone] Encounter Details Date Type Department Care Team (Late st Contact Info) Description 03/10/2022 1:35 AM EST Ancillary Procedure Radiology Library [place] [address] Ana Her MD [address] [place] [address] [facility] 1 [place], [place] [id number] Social History Tobacco Use Types Packs/Day Years [...] Chest (03/10/2022 1:31 AM EST) Narrative [facility] - 03/10/2022 1:31 AM EST This exam is auto-finalizing. It's purpose is for storage only. Ana Her MD IM FILM LIBRARY ORD ERABLES [place], [place] documented in this encounter Visit Diagnoses Not on filedocumented in this encounter Care Teams Interface Control Officer Relationship Specialty Start Date End Date Ana Her MD [facility] [address] [facility] 1 [place] [address] PCP - General 07/29/13 documented as of this encounter
--- OUTSIDE RECORDS SUMMARY | 2024-05-16 11:15 | XMS_ITS | Encounter Summary ---
[place] [address] Care Team Providers Care Rubber Mill Tender Name Role Phone Ana Her MD Primary Care Provider [phone] 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 * Consultation (Routine) - Closed Specialty Diagnoses / Procedures Referred By Christiano hackett Referred To Contact General Surgery Diagnoses Hiatal hernia Ana Her MD [address] [place] [address] [facility] [address] [place] [id number] Referral ID Status Reason Start Date Expiration Date V isits Requested Visits Authorized [id number] Closed Consult, Test & Treat 09/23/2021 09/23/2022 6 6 Encounter Details Date Type Department Care Team (Late st Contact Info) Description 09/23/2021 Transcribe Orders eDH Incoming Referrals [phone] Ana Her MD [address] [place] [address] Hiatal hernia Social History Tobacco [...] gangrene documented in this encounter Care Teams Rubber Mill Tender Relationship Specialty Start Date End Date Ana Her MD [address] [place] [address] PCP - General 07/29/13 documented as of this encounter
--- OUTSIDE RECORDS SUMMARY | 2024-05-16 11:15 | XMS_ITS | Encounter Summary ---
[place] [address] Care Team Providers Care Glost Placer Name Role Phone Ana Her MD Primary Care Provider [phone] Encounter Details Date Type Department Care Team (Late st Contact Info) Description 06/12/2021 Telephone [place] [address] Chelsie Lauren Social History Tobacco Use Types [...] on filedocumented in this encounter Care Teams Glost Placer Relationship Specialty Start Date End Date Ana Her MD [address] [place] [address] PCP - General 07/29/13 documented as of this encounter
--- OUTSIDE RECORDS SUMMARY | 2024-05-16 11:15 | XMS_ITS | Encounter Summary ---
Author Organization [facility] [place] [address] Care Team Providers Care Care Support Representative Name Role Phone Ana Her MD Primary Care Provider [phone] Encounter Details Date Type Department Care Team (Latest Contact Info) Description 01/23/2022 12:15 PM EDT TH Visit (TeleHealth) [place] [address] Laura Will MD [facility] [place] [address] Paraesophageal hernia Social History Tobacco Use Types [...] gangrene documented in this encounter Care Teams Care Support Representative Relationship Specialty Start Date End Date Ana Her MD [address] [facility] [place] [address] PCP - General 07/29/13 documented as of this encounter
--- OUTSIDE RECORDS SUMMARY | 2024-05-16 11:15 | XMS_ITS | Encounter Summary ---
Author Organization [facility] Address [facility] [place] [address] Care Team Providers Care Cooling Tower Operator Name Role Phone Ana Her MD Primary Care Provider [phone] Encounter Details Date Type Department Care Team (Late st Contact Info) Description 09/03/2021 Ancillary Procedure Radiology Library at [facility] [place] [address] Laura Will MD [facility] [place] [address] Social History Tobacco Use Types Packs/Day Years [...] CT Chest (09/03/2021 12:00 AM EDT) Narrative [facility] - 11/28/2021 1:22 PM EDT This exam is auto-finalizing. It's purpose is for storage only. Laura Will MD IMG FILM LIBRARY OR DERABLES Performing Organization Address City/State/[facility] Co de Phone Number [place], [place] documented in this encounter Visit Diagnoses Not on filedocumented in this encounter Care Teams Cooling Tower Operator Relationship Specialty Start Date End Date Ana Her MD [address] [facility] 1 [place] [address] PCP - General 07/29/13 documented as of this encounter
--- OUTSIDE RECORDS SUMMARY | 2024-05-16 11:15 | XMS_ITS | Encounter Summary ---
[place] [address] Care Team Providers Care Organ Tuner Electronic Name Role Phone Ana Her MD Primary Care Provider [phone] Encounter Details Date Type Department Care Team (Late st Contact Info) Description 02/03/2023 Telephone Hematology [place] [phone] Maryam Barrett Social History Tobacco Use Types [...] on filedocumented in this encounter Care Teams Organ Tuner Electronic Relationship Specialty Start Date End Date Ana Her MD [address] [place] [address] PCP - General 07/29/13 documented as of this encounter
--- OUTSIDE RECORDS SUMMARY | 2024-05-16 11:15 | XMS_ITS | Encounter Summary ---
Author Organization [facility] [place] [address] Care Team Providers Care Athlete Marketing Agent Name Role Phone Ana Her MD Primary Care Provider [phone] Encounter Details Date Type Department Care Team (Latest Contact Info) Description 04/03/2022 12:00 PM EST TH Visit (TeleHealth) [place] [address] Laura Will MD [facility] [place] [address] Status post repair of paraesophageal diaphragmatic hernia [...] status documented in this encounter Care Teams Athlete Marketing Agent Relationship Specialty Start Date End Date Ana Her MD [facility] [address] [place] [address] PCP - General 07/29/13 documented as of this encounter
--- OUTSIDE RECORDS SUMMARY | 2024-05-16 11:15 | XMS_ITS | Encounter Summary ---
[place] [address] Care Team Providers Care Aviation Program Manager Name Role Phone Ana Her MD Primary Care Provider [phone] Encounter Details Date Type Department Care Team (Late st Contact Info) Description 06/12/2021 Telephone [place] [address] Chelsie Lauren Social History Tobacco Use Types [...] on filedocumented in this encounter Care Teams Aviation Program Manager Relationship Specialty Start Date End Date Ana Her MD [address] [place] [address] PCP - General 07/29/13 documented as of this encounter
--- OUTSIDE RECORDS SUMMARY | 2024-05-16 11:15 | XMS_ITS | Encounter Summary ---
[place] [address] Care Team Providers Care Batterboard Setter Name Role Phone Ana Her MD Primary Care Provider Encounter Details Date Type Department Care Team (Late st Contact Info) Description 12/24/2021 Telephone [place] [phone] Chelsie Lauren Social History Tobacco Use Types [...] on filedocumented in this encounter Care Teams Batterboard Setter Relationship Specialty Start Date End Date Ana Her MD [address] [place] [address] PCP - General 07/29/13 documented as of this encounter
--- OUTSIDE RECORDS SUMMARY | 2024-05-16 11:15 | XMS_ITS | Encounter Summary ---
Author Organization [facility] [place] [address] Care Team Providers Care Retail Attendant Name Role Phone Ana Her MD Primary Care Provider [phone] Encounter Details Date Type Department Care Team (Late st Contact Info) Description 03/09/2022 11:00 PM EST Ancillary Procedure Radiology Library at [facility] [place] [address] Ana Her MD [address] [place] [address] [facility] [address] [place], [place] [id number] Social History Tobacco Use Types Packs/Day Years [...] Her MD IM FILM LIBRARY ORD ERABLES [place], [place] documented in this encounter Visit Diagnoses Not on filedocumented in this encounter Care Teams Retail Attendant Relationship Specialty Start Date End Date Ana Her MD [address] [facility] 1 [place] [address] PCP - General 07/29/13 documented as of this encounter
--- OUTSIDE RECORDS SUMMARY | 2024-05-16 11:15 | XMS_ITS | Encounter Summary ---
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 [place] [facility] [place] [...] on RA Breasts: deferred (examined by surgery DRILLER'S OFFSIDER today) Neuro: grossly nonfocal. Results: Last DXA [...] Oncology - Breast & GI [facility] Pager - [phone] No future appointments. documented in this encounter Plan of Treatment Not on file documented as of this encounter Visit Diagnoses Diagnosis Malignant neoplasm of lower-outer quadrant of left breast of female, estrogen receptor positive custodial current 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 inhibitor Use of aromatase inhibitors documented in this encounter Care Teams Rd Scientist Relationship Specialty Start Date End Date Ana Her MD [address] [place] [address] PCP - General 07/29/13 documented as of this encounter
--- OUTSIDE RECORDS SUMMARY | 2024-05-16 11:15 | XMS_ITS | Encounter Summary ---
Author Organization [facility] [place] [address] Care Team Providers Care Entry Level Financial Analyst Name Role Phone Ana Her MD Primary Care Provider Encounter Details Date Type Department Care Team (Latest Contact Info) Description 01/08/2022 6:11 AM EDT - 01/08/2022 9:40 AM EDT Hospital Encounter [place] [phone] Laura Park MD [facility] [place] [address] Discharge Disposition: Home Social History Tobacco Use [...] a nurse in the Thoracic Clinic at [phone]. After hours or on weekends or holidays please call: [phone] and ask to speak to the Thoracic Physician technical operations manager. Diet: You should follow a clear liquid [...] - 5pm): General Surgery and Bariatric Surgery [phone] Bariatric Surgeons: Drs. Park and John [phone] Manager Fixed Income: [phone] Dietitians: [phone] Outside of regular business hours, including weekends and holidays: Ask for General Surgery resident technical operations manager [phone] Please note, this call will be answered [...] of left breast of female, estrogen receptor axtgekfuY25.512, Z17.0 ??? Anemia D64.9 ??? Aortic valve [...] 6.43) performed by Malika Chen MD at [facility] MAIN OR ??? PRO INTRAOP SENTINEL LYMPH ID W/DYE INJECTION Left 03/30/2017 ?? INTRAOPERATIVE ID (MAPPING) SENTINEL LYMPH NODE,INCLUDES INJECTION (WRVU 2.5) performed by Malika Chen MD at [facility] MAIN OR ??? PRO MASTECTOMY PARTIAL Left 03/30/2017 ?? MASTECTOMY PARTIAL (WRVU 10.13) performed by Malika Chen MD at [facility] MAIN OR ?? Cholecystectomy ?? Medications: [...] Park MD - 01/08/2022 7:48 AM EDT [facility] Operative Note Patient Name: Digna Olson : [id number] MR#: [id number] Case Date: 01/08/2022 Surgeon: Surgeon(s) and Role: [...] Info Order Time SPECIMEN TO PATHOLOGY Gastric [place] for H Pylori Hiatal hernia Gastric [place] for H Pylori excision 01/08/2022 8:15 AM [...] 8:14 AM EDT Upper GI Endoscopy, Diagnostic ([id number]) Yes 01/08/2022 7:40 AM EDT Hiatal hernia POCT GLUCOSE Routine 01/08/2022 6:33 AM EDT documented in this encounter Results * Specimen to Pathology (01/08/2022 8:15 AM EDT) AP Specimen 01/08/2022 8:15 AM EDT 01/08/2022 8:15 AM EDT Narrative [facility] - 01/08/2022 8:15 AM EDT Specimen requisition ordered. ??Separate Pathology report to follow Laura Park MD PATHOLOGY/CYTOLOGY ORDERABLES [facility] [place] [address] * Surgical Pathology Report (01/08/2022 8:14 AM EDT) Final Diagnosis [id number] ? Location: [facility]; [facility]; A The signing pathologist has (i) examined the relevant preparation(s) for the specimen(s) and (ii) rendered or confirmed the diagnosis(es). . ?Surgical Pathology DIAGNOSIS A - Gastric ??Antrum for H Pylori, excision: - ??Antrum-type mucosa with reactive gastropathy. Electronically signed by: ?Umang Raymundo MD Verified: ??01/09/2022 16:36 ??Pathologist Performed at: ??-[facility] Dept. of Pathology, [place], [place] SPECIMEN(S) SUBMITTED A - Gastric ??Antrum for H Pylori, excision (1) CLINICAL INFORMATION Hiatal hernia SPECIMEN PROCESSING A - Labeled/Fixativ e: Gastric antrum for H. pylori, formalin. Quantity/Size: Single, 0.3 cm. Tissue Description: Soft, pink tissue. Sections/Proces sing: Submitted en toto ??in 1 cassette labeled A1. ??sns 01/09/2022 4:36 PM EDT [facility] GI Biopsy 01/08/2022 8:14 AM EDT 01/08/2022 8:14 AM EDT Laura Park MD PATHOLOGY/CYTOLOGY ORDERABLES [facility] [place] [address] * POCT Glucose (01/08/2022 6:33 AM EDT) Glucose, POC 120 65 - 199 mg/dL [facility] Comment: Supplemental ranges: <140 mg/dL before meals <180 mg/dL all other times of the day Blood 01/08/2022 6:33 AM EDT 01/08/2022 6:33 AM EDT Laura Park MD POINT OF CARE [place] [address] documented in this encounter Visit Diagnoses Not on filedocumented in this encounter Active and Recently Administered Medications Care Teams Entry Level Financial Analyst Relationship Specialty Start Date End Date Ana Her MD [address] [place] [address] PCP - General 07/29/13 documented as of this encounter
--- OUTSIDE RECORDS SUMMARY | 2024-05-16 11:15 | XMS_ITS | Encounter Summary ---
[place] [address] Care Team Providers Care Device Sales Consultant Name Role Phone Ana Her MD Primary Care Provider [phone] Reason for Visit * Auth/Cert Specialty Diagnoses / Procedures Referred By Christiano hackett Referred To Contact Diagnoses S/P repair of paraesophageal hernia Post-Op monitoring Procedures PRO LAPARSCOPY REPAIR PARAESOPHAGEAL HERNIA INCL FUNDOPLASTY W/O MESH LAPAROSCOPIC PARAESOPHAGEAL HERNIA REPAIR W/FUNDOPLASTY, W/O MESH (WRVU 26.6) MODIFIER TOUPET FUNDOPLASTY Shania Will MD [facility] [place] [address] [facility] Referral ID Status Reason Start Date Expiration Date Visits Re quested Visits Authorized [id number] 1 1 Encounter Details Date Type Department Care Team (Late st Contact Info) Description 03/05/2022 12:54 PM EDT - 03/05/2022 4:55 PM EDT Surgery [place] [phone] Shania Will MD [facility] [place] [address] LAPAROSCOPIC PARAESOPHAGEAL HERNIA REPAIR W/FUNDOPLASTY, W/O MESH [...] of left breast of female, estrogen receptor [id number], Z17.0 ??? Anemia D64.9 ??? Aortic valve [...] Per chart review, her creatinine levels in [id number] ranged from 0.87-1.50 indicative of possible undiagnosed [...] PM Shania Will MD General Surgery at [facility] Arrive at: Store Stock Associate Area [phone] Instructions Given to Patient at Discharge: Patient [...] hours please call the Surgery Clinic at [phone] before 5 PM on weekdays. For questions after hours and on weekends please call the hospital concrete gun operator at [phone] and ask for the General Surgery resident radio division officer. They may not be familiar with your [...] post Sly diet, as instructed by the announcer in the hospital for a period of [...] renal function. Please call the clinic at [phone] to confirm or reschedule. Future Appointments Date Time Provider Department Center 04/03/2022 12:00 PM Shania Will MD [facility] General Instructions None Future Appointments and Orders Future Appointments and Orders Future Appointments Provider Department Dept Phone 04/03/2022 12:00 PM Shania Will MD General Surgery at [facility] Arrive at: Store Stock Associate Area 4L [phone] Signed: Shena Harden MD 03/07/22 7:18 AM [phone] Primary Saima Physician: MD Geovany David DR [facility] [id number] documented in this encounter Discharge Instructions * [...] hours please call the Surgery Clinic at [phone] before 5 PM on weekdays. For questions after hours and on weekends please call the hospital concrete gun operator at [phone] and ask for the General Surgery resident radio division officer. They may not be familiar with your [...] post Sly diet, as instructed by the announcer in the hospital for a period of [...] renal function. Please call the clinic at [phone] to confirm or reschedule. Future Appointments Date Time Provider Department Center 04/03/2022 12:00 PM Shania Will MD [facility] documented in this encounter Medications [...] of this encounter Progress Notes * Olga Ocamop RN - 03/07/2022 10:25 AM EDT [facility] Short Stay Unit Discharge Note [...] Sly Diet Education to pt Digna Olson. Client Service Professional metwith pt at bedside to deliver [...] she is noticing some overall improvement post op.Client Service Professional took note of this and encouraged [...] Department contact information provided. Pt appreciate of specifications writer's time. Nutrition to follow as needed. [...] Perez MD 03/05/2022 Minimally Invasive Surgery Pager #[phone] * Lorrie Slater RN - 03/05/2022 6:46 [...] followed by [place] at [facility], and is on xarelto. ?? Impression: ??Symptomatic [...] of left breast of female, estrogen receptor olutldapO96.512, Z17.0 ??? Anemia D64.9 ??? Aortic valve [...] 6.43) performed by Malika Chen MD at [facility] MAIN OR ??? PRO INTRAOP SENTINEL LYMPH ID W/DYE INJECTION Left 03/30/2017 ?? INTRAOPERATIVE ID (MAPPING) SENTINEL LYMPH NODE,INCLUDES INJECTION (WRVU 2.5) performed by Malika Chen MD at [facility] MAIN OR ??? PRO MASTECTOMY PARTIAL Left 03/30/2017 ?? MASTECTOMY PARTIAL (WRVU 10.13) performed by Malika Chen MD at [facility] MAIN OR ?? Cholecystectomy ?? [...] Operative Note Patient Name: Digna Olson : [id number] MR#: [id number] Case Date: 03/05/2022 Surgeon: Surgeon(s) and Role: [...] Flores MD - 03/05/2022 2:32 PM EDT [facility] Operative Note Patient Name: Digna Olson : [id number] MR#: [id number] Case Date: 03/05/2022 Surgeon: Surgeon(s) and Role: [...] Repair Paraesophageal Hernia Incl Fundoplasty W/O Mesh (10135) 03/05/2022 1:58 PM EDT Paraesophageal Hernia POCT GLUCOSE Routine 03/05/2022 12:18 PM EDT LAPAROSCOPIC PARAESOPHAGEAL HERNIA REPAIR W FUNDOPLASTY, W/O MESH Routine 03/05/2022 12:02 PM EDT documented in this encounter Results * (ABNORMAL) Differential, Automated (03/07/2022 5:08 AM EDT) Neutrophil % 80.0 % [facility] Neutrophil Absolute 5.30 1.70 - 6.10 x10(3)/mc L [facility] Lymph % 12.1 % [facility] Lymphocytes Abs 0.8(L) 0.9 - 3.2 x10(3)/mc L [facility] Monocyte % 7.6 % [facility] Monocyte Abs 0.5 0.3 - 0.9 x10(3)/mc L [facility] Eos % 0.0 % [facility] Eosinophils Abs 0.0 0.0 - 0.4 x10(3)/[facility] Basophil % 0.0 % [facility] Baso Absolute 0.0 0.0 - 0.1 x10(3)/[facility] Immature Gran % 0.30 % [facility] Comment: Immature granulocytes(IG's)percentage and absolute count will include metamyelocytes, myelocytes, and promyelocytes. Blood smears from CBCs yielding IG's will be scanned manually for concordance. If this scan disagrees with the automated IG or if promyelocytes are noted, a manual differential will be performed. Immature Gran Absolute 0.02 0.00 - 0.04 x10(3)/[facility] Blood 03/07/2022 5:08 AM EDT 03/07/2022 5:19 AM EDT Narrative Resulting Agency Comment Spec In Lab Nino Levy MD HEMATOLOGY ORDERABLE S [facility] [place] [address] * (ABNORMAL) Hemogram (03/07/2022 5:08 AM EDT) White Blood Cell 6.6 4.0 - 9.5 x10(3)/[facility] Red Blood Cell 3.16(L) 4.00 - 5.21 x10(6)/[facility] Hemoglobin 10.7(L) 11.7 - 15.5 g/dL [facility] Hematocrit 31.7(L) 35.7 - 45.8 % [facility] Mean Cell Volume 100.3(H) 82.6 - 94.4 fL [facility] Mean Cell Hemoglobin 33.9(H) 27.1 - 32.0 pg [facility] Mean Cell Hemoglobin Concentration 33.8 31.7 - 35.0 g/dL [facility] Platelet 110(L) 145 - 357 x10(3)/mc L [facility] RDW Standard Deviation 47.5(H) 37.0 - 46.0 [facility] RDW coefficient of variation 12.9 11.5 - 14.1 % [facility] Mean Platelet Volume 11.7 7.6 - 12.9 [facility] NRBC% auto 0.0 % [facility] NRBC Absolute 0.000 0.000 - 0.000 x10(3)/mc L [facility] Blood 03/07/2022 5:08 AM EDT 03/07/2022 5:19 AM EDT Narrative Resulting Agency Comment Spec In Lab Nino Levy MD HEMATOLOGY ORDERABLE S Performing Organization Address City/[facility]/[place] [address] * Phosphorus (03/07/2022 5:08 AM EDT) Phosphorus 2.7 2.5 - 4.5 mg/dL [facility] Blood 03/07/2022 5:08 AM EDT 03/07/2022 5:19 AM EDT Narrative Resulting Agency Comment Spec In Lab Shania Will MD CHEMISTRY ORDERABLE S Performing Organization Address City/[facility]/ZIP Co de Phone Number [facility] [place] [address] * Magnesium (03/07/2022 5:08 AM EDT) Magnesium 0.89 0.69 - 1.07 mmol/L [facility] Blood 03/07/2022 5:08 AM EDT 03/07/2022 5:19 AM EDT Narrative Resulting Agency Comment Spec In Lab Shania Will MD CHEMISTRY ORDERABLE S [facility] [place] [address] * (ABNORMAL) Basic Metabolic Panel (non-fasting) (03/07/2022 5:08 AM EDT) Glucose 111 65 - 199 mg/dL [facility] Comment:Diabetes: >=200 mg/d L plus symptoms Blood Urea Nitrogen 22(H) 8 - 18 mg/dL [facility] Creatinine 0.93 0.70 - 1.20 mg/dL [facility] Sodium 131(L) 135 - 145 mmol/L [facility] Potassium 4.5 3.5 - 5.0 mmol/L [facility] Comment: Please note: ??Patients with WBC >100,000 may have falsely elevated Potassium levels. ??For accurate Potassium quantification in these patients send serum separator tube (gold top) for subsequent determinations. ??Contact the Clinical Chemistry Laboratory if there are any questions. Chloride 100 98 - 107 mmol/L [facility] Carbon Dioxide 22 22 - 31 mmol/L [facility] Anion Gap 9 5 - 15 mmol/L [facility] Calcium 9.2 8.5 - 10.5 mg/dL [facility] Est Glomerular Filtration Rate 64 >=60 mL/min/1. 73 m?? [facility] Comment: This patient's estimated GFR [...] MD CHEMISTRY ORDERABLE S Performing Organization Address City/[facility]/ZIP Co de Phone Number [facility] [place] [address] * (ABNORMAL) Differential, Automated (03/06/2022 10:15 AM EDT) Neutrophil % 90.7 % [facility] Neutrophil Absolute 5.79 1.70 - 6.10 x10(3)/mc L [facility] Lymph % 5.0 % [facility] Lymphocytes Abs 0.3(L) 0.9 - 3.2 x10(3)/mc L [facility] Monocyte % 3.8 % [facility] Monocyte Abs 0.2(L) 0.3 - 0.9 x10(3)/mc L [facility] Eos % 0.0 % [facility] Eosinophils Abs 0.0 0.0 - 0.4 x10(3)/[facility] Basophil % 0.0 % [facility] Baso Absolute 0.0 0.0 - [...] Absolute 0.03 0.00 - 0.04 x10(3)/mc L [facility] Blood 03/06/2022 10:1 5 AM EDT 03/06/2022 10:21 AM EDT Narrative Resulting Agency Comment Spec In Lab Maryam MUELLER HEMATOLOGY ORDERABL ES Performing Organization Address City/[facility]/ZIP Co de Phone Number [facility] [place] [address] * (ABNORMAL) Hemogram (03/06/2022 10:15 AM EDT) White Blood Cell 6.4 4.0 - 9.5 x10(3)/mc L [facility] Red Blood Cell 3.07(L) 4.00 - 5.21 x10(6)/mc L [facility] Hemoglobin 10.5(L) 11.7 - 15.5 g/dL [facility] Hematocrit 31.1(L) 35.7 - 45.8 % [facility] Mean Cell Volume 101.3(H) 82.6 - 94.4 fL [facility] Mean Cell Hemoglobin 34.2(H) 27.1 - 32.0 pg [facility] Mean Cell Hemoglobin Concentration 33.8 31.7 - 35.0 g/dL [facility] Platelet 111(L) 145 - 357 x10(3)/[facility] RDW Standard Deviation 47.2(H) 37.0 - 46.0 [facility] RDW coefficient of variation 12.9 11.5 - 14.1 % [facility] Mean Platelet Volume 11.5 7.6 - 12.9 [facility] NRBC% auto 0.0 % [facility] NRBC Absolute 0.000 0.000 - 0.000 x10(3)/ L [facility] Blood 03/06/2022 10:1 5 AM EDT 03/06/2022 10:21 AM EDT Narrative Resulting Agency Comment Spec In Lab Maryam MUELLER HEMATOLOGY ORDERABL ES [facility] [place] [address] * Phosphorus (03/06/2022 10:15 AM EDT) Phosphorus 3.3 2.5 - 4.5 mg/dL [facility] Blood 03/06/2022 10:1 5 AM EDT 03/06/2022 10:21 AM EDT Narrative Resulting Agency Comment Spec In Lab Shania Will MD CHEMISTRY ORDERABLE S [facility] [place] [address] * Magnesium (03/06/2022 10:15 AM EDT) Magnesium 0.69 0.69 - 1.07 mmol/L [facility] Blood 03/06/2022 10:1 5 AM EDT 03/06/2022 10:21 AM EDT Narrative Resulting Agency Comment Spec In Lab Shania Will MD CHEMISTRY ORDERABLE S Performing Organization Address City/[facility]/ZIP Co de Phone Number [facility] [place] [address] * (ABNORMAL) Basic Metabolic Panel (non-fasting) (03/06/2022 10:15 AM EDT) Glucose 155 65 - 199 mg/dL [facility] Comment:Diabetes: >=200 mg/d L plus symptoms Blood Urea Nitrogen 29(H) 8 - 18 mg/dL [facility] Creatinine 1.25(H) 0.70 - 1.20 mg/dL [facility] Sodium 134(L) 135 - 145 mmol/L [facility] [...] mmol/L [facility] Carbon Dioxide 23 22 - 31 mmol/L [facility] Anion Gap 10 5 - 15 mmol/L [facility] Calcium 8.9 8.5 - 10.5 mg/dL [facility] Est Glomerular Filtration Rate 45(L) >=60 mL/min/1. 73 m?? [facility] Comment: This patient's estimated GFR [...] City/State/[facility] Co de Phone Number [facility] [place] [address] * (ABNORMAL) Differential, Automated (03/06/2022 4:29 AM EDT) Neutrophil % 90.5 % [facility] Neutrophil Absolute 4.47 1.70 - 6.10 x10(3)/mc L [facility] Lymph % 6.9 % [facility] Lymphocytes Abs 0.3(L) 0.9 - 3.2 x10(3)/mc L [facility] Monocyte % 2.2 % [facility] Monocyte Abs 0.1(L) 0.3 - 0.9 x10(3)/mc L [facility] Eos % 0.0 % [facility] Eosinophils Abs 0.0 0.0 - 0.4 x10(3)/mc L [facility] Basophil % 0.2 % [facility] Baso Absolute 0.0 0.0 - 0.1 x10(3)/mc L [facility] Immature Gran % 0.20 % [facility] Comment: Immature granulocytes(IG's)percentage and absolute count will include metamyelocytes, myelocytes, and promyelocytes. Blood smears from CBCs yielding IG's will be scanned manually for concordance. If this scan disagrees with the automated IG or if promyelocytes are noted, a manual differential will be performed. Immature Gran Absolute 0.01 0.00 - 0.04 x10(3)/[facility] Blood 03/06/2022 4:29 AM EDT 03/06/2022 4:49 AM EDT Narrative Resulting Agency Comment Spec In Lab Prakash Mendez MD HEMATOLOGY ORDERABLE S [facility] [place] [address] * (ABNORMAL) Hemogram (03/06/2022 4:29 AM EDT) White Blood Cell 4.9 4.0 - 9.5 x10(3)/[facility] Red Blood Cell 3.08(L) 4.00 - 5.21 x10(6)/[facility] Hemoglobin 10.5(L) 11.7 - 15.5 g/dL [facility] Hematocrit 31.0(L) 35.7 - 45.8 % [facility] Mean Cell Volume 100.6(H) 82.6 - 94.4 fL [facility] Mean Cell Hemoglobin 34.1(H) 27.1 - 32.0 pg [facility] Mean Cell Hemoglobin Concentration 33.9 31.7 - 35.0 g/dL [facility] Platelet 104(L) 145 - 357 x10(3)/[facility] RDW Standard Deviation 47.5(H) 37.0 - 46.0 fL [facility] RDW coefficient of variation 12.9 11.5 - 14.1 % [facility] Mean Platelet Volume 11.8 7.6 - 12.9 fL [facility] NRBC% auto 0.0 % [facility] NRBC Absolute 0.000 0.000 - 0.000 x10(3)/mc L [facility] Blood 03/06/2022 4:29 AM EDT 03/06/2022 4:49 AM EDT Narrative Resulting Agency Comment Spec In Lab Prakash Mendez MD HEMATOLOGY ORDERABLE S [facility] [place] [address] * (ABNORMAL) Basic Metabolic Panel (non-fasting) (03/06/2022 4:29 AM EDT) Glucose 140 65 - 199 mg/dL [facility] Comment:Diabetes: >=200 mg/d L plus symptoms Blood Urea Nitrogen 31(H) 8 - 18 mg/dL [facility] Creatinine 1.32(H) 0.70 - 1.20 mg/dL [facility] Sodium 136 135 - 145 mmol/L [facility] Potassium 5.3(H) 3.5 - 5.0 mmol/L [facility] Comment: Please note: ??Patients with WBC >100,000 may have falsely elevated Potassium levels. ??For accurate Potassium quantification in these patients send serum separator tube (gold top) for subsequent determinations. ??Contact the Clinical Chemistry Laboratory if there are any questions. Chloride 103 98 - 107 mmol/L [facility] Carbon Dioxide 23 22 - 31 mmol/L [facility] Anion Gap 10 5 - 15 mmol/L [facility] Calcium 9.0 8.5 - 10.5 mg/dL [facility] Est Glomerular Filtration Rate 42(L) >=60 mL/min/1. 73 m?? [facility] Comment: This patient's estimated GFR [...] MD CHEMISTRY ORDERABLE S Performing Organization Address City/[facility]/ZIP Co de Phone Number [facility] [place] [address] * POCT Glucose (03/05/2022 12:18 PM EDT) Glucose, POC 94 65 - 199 mg/dL [facility] Comment: Supplemental ranges: <140 mg/dL before meals <180 mg/dL all other times of the day Blood 03/05/2022 12:1 8 PM EDT 03/05/2022 12:18 PM EDT Shania Will MD POINT OF CARE TEST ORDERABLES Performing Organization Address City/[facility]/ZIP Co de Phone Number [facility] [place] [address] documented in this encounter Visit Diagnoses Not [...] Unit) documented in this encounter Care Teams Device Sales Consultant Relationship Specialty Start Date End Date Ana Her MD [address] [facility] [address] [place] [address] PCP - General 07/29/13 documented as of this encounter
--- OUTSIDE RECORDS SUMMARY | 2024-05-16 11:15 | XMS_ITS | Encounter Summary ---
Author Organization Formerly [facility] [place] [address] Care Team Providers Care Junior Loan Processor Name Role Phone Ana Her MD Primary Care Provider [phone] Encounter Details Date Type Department Care Team (Late st Contact Info) Description 03/09/2022 Telephone [place] [address] Prakash Mendez MD [facility] [place] [address] Social History Tobacco Use Types Packs/Day Years [...] the mobile number listed in her chart ([phone]). Her other daughter answered the phone and reported that she had just dropped her off in the Emergency Department at [facility] and parked the car. She was walking back to the building to be with her. I reassured her that going to the Emergency Department seemed like a reasonable plan. I assured her that we are always happy to see her here at [facility] anytime and that they could call back anytime with further questions or concerns. This note will be routed to the provider mentioned above. Prakash Mendez MD documented in this encounter Plan of Treatment Not on file documented as of this encounter Visit Diagnoses Not on filedocumented in this encounter Care Teams Junior Loan Processor Relationship Specialty Start Date End Date Ana Her MD [address] [place] [address] PCP - General 07/29/13 documented as of this encounter
--- OUTSIDE RECORDS SUMMARY | 2024-05-16 11:15 | XMS_ITS | Encounter Summary ---
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, estrogen receptor positive Macromastia Jeanine Lobato APRN [facility] [place] [address] [facility] [address] [address] Referral ID Status Reason Start Date Expiration Date V isits Requested Visits Authorized [id number] Closed Consult, Test & Treat 06/11/2021 06/11/2022 1 1 Encounter Details Date Type Department Care Team (Late st Contact Info) Description 06/11/2021 10:00 AM EST Office [place] [address] Jeanine Lobato APRN [facility] [place] [address] Encounter for follow-up surveillance of [...] this encounter Progress Notes * Jeanine Lobato, PET RESORT CONCIERGE - 06/11/2021 10:00 AM EST Images from [...] was obtained which revealed IDC which is ER/CA positive, Her2 negative. Alma Delia opted against [...] mm Grade Intermediate Margins Negative ER Positive CA Positive HER-2 Negative OncotypeDx Recurrence Score N/A [...] Family history of ovarian cancer No Ashkenazi Caodaism heritage No Known genetic mutation Not tested [...] to speak almost daily. He lives in [place] and is beginning to show early signs [...] situation. Results: Imaging performed (bilateral mammogram) at [facility] today shows no evidence of malignancy, BIRADS [...] free apps for your cell phone from [employer] (Healthy Living) and [employer] ([employer]ingNote). All questions were answered to the patient's satisfaction and they state understanding and agreement with today's treatment plan. They are encouraged to follow up sooner if they develop any new or concerning symptoms. Jeanine Lobato APRN Surgical Oncology P [phone] F [phone] [facility] documented in this encounter Plan of Treatment [...] breast documented in this encounter Care Teams Aircraft Inspector Relationship Specialty Start Date End Date Ana Her MD [address] [place] [address] PCP - General 07/29/13 documented as of this encounter
--- OUTSIDE RECORDS SUMMARY | 2024-05-16 11:15 | XMS_ITS | Encounter Summary ---
[place] [address] Care Team Providers Care Fighting Vehicle Infantryman Name Role Phone Ana Her MD Primary Care Provider Reason for Visit * Auth/Cert Specialty Diagnoses / Procedures Referred By Christiano hackett Referred To Contact Diagnoses S/P repair of paraesophageal hernia Post-Op monitoring Procedures PRO LAPARSCOPY REPAIR PARAESOPHAGEAL HERNIA INCL FUNDOPLASTY W/O MESH LAPAROSCOPIC PARAESOPHAGEAL HERNIA REPAIR W/FUNDOPLASTY, W/O MESH (WRVU 26.6) MODIFIER TOUPET FUNDOPLASTY Laura Will MD [facility] [place] [address] [facility] Referral ID Status Reason Start Date Expiration Date Visits Re quested Visits Authorized [id number] 1 1 Encounter Details Date Type Department Care Team (Late st Contact Info) Description 03/05/2022 1:58 PM EDT Anesthesia Event Main [place] [id number] Alisa Naqvi MD [facility] [place] [address] Alessia Ramirez [place] [address] Anesthesia Record Procedure Summary Procedure Name Responsible [...] Procedure Summary Date: 03/05/22 Room / Location: [address] MAIN OR Anesthesia Start: 8 Anesthesia Stop: 1823 Procedures: LAPAROSCOPIC PARAESOPHAGEAL HERNIA REPAIR W/FUNDOPLASTY, W/O MESH (WRVU 26.6) (N/A Abdomen) MODIFIER TOUPET FUNDOPLASTY (N/A Abdomen) Diagnosis: (Paraesophageal Hernia) Surgeons: Laura Will MD Responsible Provider: Alisa Naqvi MD Anesthesia Type: general ASA Status: 3 All Anesthesia Providers: Anesthesiologist: Brayan Hubbard MD; Alisa Naqvi MD; Dario Franco MD Piano Assembler: Mo Vance DO Vitals Value Taken Time BP 125/75 03/05/22 1821 Temp Pulse 77 03/05/22 1823 Resp 18 03/05/22 1823 SpO2 100 % 03/05/22 182 Pain Level Vitals shown include unvalidated device data. Patient Location: PACU/[facility] Level of Consciousness: Awake and Alert Pain [...] of left breast of female, estrogen receptor jkjyjjwd51/25/2017 ??? Bicuspid aortic valve 06/10/2016 ??? Dyspnea [...] LYMPH NODE,INCLUDES INJECTION (WRVU 2.5) performed by Mailka Chen MD at [facility] [...] 45%. Wall motion normal. ?? Echo 06/19/21 ([facility]): normal biventricular size and function, symmetric [...] PONV ppx Mo Shreyas DO Pinky 03/04/2022 Trailer Mechanic Pager #[phone] Region - Other Informed Consent: Anesthetic plan [...] 45%. Wall motion normal. ?? Echo 06/19/21 ([facility]): normal biventricular size and function, symmetric [...] 1 view ?? Followed by cardiology at [facility], notes under Care Everywhere. Last seen 06/19/21 [...] mg documented in this encounter Care Teams Fighting Vehicle Infantryman Relationship Specialty Start Date End Date Ana Her MD Geovany [address] [facility] [address] [place] [address] PCP - General 07/29/13 documented as of this encounter
--- OUTSIDE RECORDS SUMMARY | 2024-05-16 11:15 | XMS_ITS | Encounter Summary ---
[place] [address] Care Team Providers Care Golf Course Keeper Name Role Phone Ana Her MD Primary Care Provider [phone] Encounter Details Date Type Department Care Team (Late st Contact Info) Description 01/08/2022 7:30 AM EDT - 01/08/2022 8:40 AM EDT Surgery Main Operating [place] [phone] Laura Park MD [facility] [place] [address] EGD, UPPER GI ENDOSCOPY (WRVU 2.09) Social [...] a nurse in the Thoracic Clinic at [phone]. After hours or on weekends or holidays please call: [phone] and ask to speak to the Thoracic Physician public relations analyst. Diet: You should follow a clear liquid [...] - 5pm): General Surgery and Bariatric Surgery [phone] Bariatric Surgeons: Drs. Park and John [phone] Biomedical Engineering Professor: [phone] Dietitians: [phone] Outside of regular business hours, including weekends and holidays: Ask for General Surgery resident public relations analyst [phone] Please note, this call will be answered [...] of left breast of female, estrogen receptor apgcivsyB10.512, Z17.0 ??? Anemia D64.9 ??? Aortic valve [...] performed by Malika Chen MD at [facility] MAIN OR ??? PRO INTRAOP SENTINEL LYMPH ID W/DYE INJECTION Left 03/30/2017 ?? INTRAOPERATIVE ID (MAPPING) SENTINEL LYMPH NODE,INCLUDES INJECTION (WRVU 2.5) performed by Malika Chen MD at [facility] MAIN OR ??? PRO MASTECTOMY PARTIAL Left 03/30/2017 ?? MASTECTOMY PARTIAL (WRVU 10.13) performed by Malika Chen MD at [facility] MAIN OR ?? Cholecystectomy ?? Medications: [...] MD - 01/08/2022 7:48 AM EDT [facility] [place] Patient Name: Digna Olson : [id number] MR#: [id number] Case Date: 01/08/2022 Surgeon: Surgeon(s) and Role: [...] Info Order Time SPECIMEN TO PATHOLOGY Gastric [place] for H Pylori Hiatal hernia Gastric [place] for H Pylori excision 01/08/2022 8:15 AM [...] 8:14 AM EDT Upper GI Endoscopy, Diagnostic ([id number]) Yes 01/08/2022 7:40 AM EDT Hiatal hernia POCT GLUCOSE Routine 01/08/2022 6:33 AM EDT documented in this encounter Results * Specimen to Pathology (01/08/2022 8:15 AM EDT) AP Specimen 01/08/2022 8:15 AM EDT 01/08/2022 8:15 AM EDT Narrative [facility] - 01/08/2022 8:15 AM EDT Specimen requisition ordered. ??Separate Pathology report to follow Laura Park MD PATHOLOGY/CYTOLOGY ORDERABLES [facility] [place] [address] * Surgical Pathology Report (01/08/2022 8:14 AM EDT) Final Diagnosis [id number] ? Location: SDP; SD36; A The signing pathologist has (i) examined the relevant preparation(s) for the specimen(s) and (ii) rendered or confirmed the diagnosis(es). . ?Surgical Pathology DIAGNOSIS A - Gastric ??Antrum for H Pylori, excision: - ??Antrum-type mucosa with reactive gastropathy. Electronically signed by: ?Umang Raymundo MD Verified: ??01/09/2022 16:36 ??Pathologist Performed at: ??-[facility] Dept. [place]ology, [place], [place] SPECIMEN(S) SUBMITTED A - Gastric ??Antrum for H Pylori, excision (1) CLINICAL INFORMATION Hiatal hernia SPECIMEN PROCESSING A - Labeled/Fixativ e: Gastric antrum for H. pylori, formalin. Quantity/Size: Single, 0.3 cm. Tissue Description: Soft, pink tissue. Sections/Proces sing: Submitted en toto ??in 1 cassette labeled A1. ??sns 01/09/2022 4:36 PM EDT [facility] GI Biopsy 01/08/2022 8:14 AM EDT 01/08/2022 8:14 AM EDT Laura Park MD PATHOLOGY/CYTOLOGY ORDERABLES Performing Organization Address City/State/[facility] Co de Phone Number [facility] [place] [address] * POCT Glucose (01/08/2022 6:33 AM EDT) Glucose, POC 120 65 - 199 mg/dL [facility] Comment: Supplemental ranges: <140 mg/dL before meals <180 mg/dL all other times of the day Blood 01/08/2022 6:33 AM EDT 01/08/2022 6:33 AM EDT Laura Park MD POINT [place] [address] documented in this encounter Visit Diagnoses Not on filedocumented in this encounter Active and Recently Administered Medications Care Teams Golf Course Keeper Relationship Specialty Start Date End Date Ana Her MD [address] [facility] [address] [place] [address] PCP - General 07/29/13 documented as of this encounter
--- OUTSIDE RECORDS SUMMARY | 2024-05-16 11:15 | XMS_ITS | Encounter Summary ---
[place] [address] Care Team Providers Care Zigzag Topstitcher Name Role Phone Ana Her MD Primary Care Provider [phone] Reason for Visit * Auth/Cert Specialty Diagnoses / Procedures Referred By Christiano hackett Referred To Contact Diagnoses S/P repair of paraesophageal hernia Post-Op monitoring Procedures PRO LAPARSCOPY REPAIR PARAESOPHAGEAL HERNIA INCL FUNDOPLASTY W/O MESH LAPAROSCOPIC PARAESOPHAGEAL HERNIA REPAIR W/FUNDOPLASTY, W/O MESH (WRVU 26.6) MODIFIER TOUPET FUNDOPLASTY Shania Will MD [facility] [place] [address] [facility] Referral ID Status Reason Start Date Expiration Date Visits Re quested Visits Authorized [id number] 1 1 Encounter Details Date Type Department Care Team (Latest Contact Info) Description 03/05/2022 11:55 AM EDT - 03/07/2022 10:00 AM EDT Hospital Encounter [place] [id number] Shania Will MD [facility] [place] [place] [address] Discharge Disposition: Home Social History Tobacco Use [...] of left breast of female, estrogen receptor [id number], Z17.0 ??? Anemia D64.9 ??? Aortic valve [...] Per chart review, her creatinine levels in [id number] ranged from 0.87-1.50 indicative of possible undiagnosed [...] PM Shania Will MD General Surgery at [facility] Arrive at: [place] [phone] Instructions Given to Patient at Discharge: Patient [...] hours please call the Surgery Clinic at [phone] before 5 PM on weekdays. For questions after hours and on weekends please call the hospital accelerator operator at [phone] and ask for the General Surgery resident loss prevention research engineer. They may not be familiar with [...] post Sly diet, as instructed by the white goods appliance tech in the hospital for a period of [...] renal function. Please call the clinic at [phone] to confirm or reschedule. Future Appointments Date Time Provider Department Center 04/03/2022 12:00 PM Shania Will MD [facility] SURG [facility] General Instructions None Future Appointments and Orders Future Appointments and Orders Future Appointments Provider Department Dept Phone 04/03/2022 12:00 PM Shania Will MD General Surgery at [facility] Arrive at: [place] Signed: Shena Harden MD 03/07/22 7:18 AM [facility] [address] Primary [place] Physician: MD Geovany David DR [facility] [id number] documented in this encounter Discharge Instructions * [...] hours please call the Surgery Clinic at [phone] before 5 PM on weekdays. For questions after hours and on weekends please call the hospital accelerator operator at [phone] and ask for the General Surgery resident loss prevention research engineer. They may not be familiar with [...] post Sly diet, as instructed by the white goods appliance tech in the hospital for a period of [...] renal function. Please call the clinic at [phone] to confirm or reschedule. Future Appointments Date Time Provider Department Center 04/03/2022 12:00 PM Shania Will MD [facility] SURG [facility] documented in this encounter Medications [...] Ocampo RN - 03/07/2022 10:[address] [facility] Short Stay Unit Discharge Note [...] Sly Diet Education to pt Digna Olson. Beer Maker metwith pt at bedside to deliver [...] she is noticing some overall improvement post op.Beer Maker took note of this and encouraged [...] Department contact information provided. Pt appreciate of insurance writer's time. Nutrition to follow as needed. [...] Perez MD 03/05/2022 Minimally Invasive Surgery Pager #[phone] * Lorrie Slater RN - 03/05/2022 6:46 [...] ?? She is followed by cardiology at [facility], and is on xarelto. ?? Impression: ??Symptomatic [...] review, the patient encounter, and documentation. --------- Dgina Olson is a 76 y.o. female referred [...] of left breast of female, estrogen receptor [id number], Z17.0 ??? Anemia D64.9 ??? Aortic valve [...] performed by Malika Chen MD at [facility] MAIN OR ??? PRO INTRAOP SENTINEL LYMPH ID W/DYE INJECTION Left 03/30/2017 ?? INTRAOPERATIVE ID (MAPPING) SENTINEL LYMPH NODE,INCLUDES INJECTION (WRVU 2.5) performed by Malika Chen MD at [facility] MAIN OR ??? PRO MASTECTOMY PARTIAL Left 03/30/2017 ?? MASTECTOMY PARTIAL (WRVU 10.13) performed by Malika Chen MD at [facility] MAIN OR ?? Cholecystectomy ?? [...] Operative Note Patient Name: Digna Olson : [id number] MR#: [id number] Case Date: 03/05/2022 Surgeon: Surgeon(s) and Role: [...] Flores MD - 03/05/2022 2:32 PM EDT [facility] Operative Note Patient Name: Digna Olson : [id number] MR#: [id number] Case Date: 03/05/2022 Surgeon: Surgeon(s) and Role: [...] Repair Paraesophageal Hernia Incl Fundoplasty W/O Mesh (84787) 03/05/2022 1:58 PM EDT Paraesophageal Hernia POCT GLUCOSE Routine 03/05/2022 12:18 PM EDT LAPAROSCOPIC PARAESOPHAGEAL HERNIA REPAIR W FUNDOPLASTY, W/O MESH Routine 03/05/2022 12:02 PM EDT documented in this encounter Results * (ABNORMAL) Differential, Automated (03/07/2022 5:08 AM EDT) Neutrophil % 80.0 % [facility] Neutrophil Absolute 5.30 1.70 - 6.10 x10(3)/mc L [facility] Lymph % 12.1 % [facility] Lymphocytes Abs 0.8(L) 0.9 - 3.2 x10(3)/mc L [facility] Monocyte % 7.6 % [facility] Monocyte Abs 0.5 0.3 - 0.9 x10(3)/mc L [facility] Eos % 0.0 % [facility] Eosinophils Abs 0.0 0.0 - 0.4 x10(3)/mc L [facility] Basophil % 0.0 % [facility] Baso Absolute 0.0 0.0 - 0.1 x10(3)/[facility] Immature Gran % 0.30 % [facility] Comment: Immature granulocytes(IG's)percentage and absolute count will include metamyelocytes, myelocytes, and promyelocytes. Blood smears from CBCs yielding IG's will be scanned manually for concordance. If this scan disagrees with the automated IG or if promyelocytes are noted, a manual differential will be performed. Immature Gran Absolute 0.02 0.00 - 0.04 x10(3)/[facility] Blood 03/07/2022 5:08 AM EDT 03/07/2022 5:19 AM EDT Narrative Resulting Agency Comment Spec In Lab Nino Levy MD HEMATOLOGY ORDERABLE S Performing Organization Address City/State/[facility] Co de Phone Number [facility] [place] [address] * (ABNORMAL) Hemogram (03/07/2022 5:08 AM EDT) White Blood Cell 6.6 4.0 - 9.5 x10(3)/[facility] Red Blood Cell 3.16(L) 4.00 - 5.21 x10(6)/[facility] Hemoglobin 10.7(L) 11.7 - 15.5 g/dL [facility] Hematocrit 31.7(L) 35.7 - 45.8 % [facility] Mean Cell Volume 100.3(H) 82.6 - 94.4 fL [facility] Mean Cell Hemoglobin 33.9(H) 27.1 - 32.0 pg [facility] Mean Cell Hemoglobin Concentration 33.8 31.7 - 35.0 g/dL [facility] Platelet 110(L) 145 - 357 x10(3)/[facility] RDW Standard Deviation 47.5(H) 37.0 - 46.0 fL [facility] RDW coefficient of variation 12.9 11.5 - 14.1 % [facility] Mean Platelet Volume 11.7 7.6 - 12.9 fL [facility] NRBC% auto 0.0 % [facility] NRBC Absolute 0.000 0.000 - 0.000 x10(3)/mc L [facility] Blood 03/07/2022 5:08 AM EDT 03/07/2022 5:19 AM EDT Narrative Resulting Agency Comment Spec In Lab Nino Levy MD HEMATOLOGY ORDERABLE S [facility] [place] [address] * Phosphorus (03/07/2022 5:08 AM EDT) Phosphorus 2.7 2.5 - 4.5 mg/dL [facility] Blood 03/07/2022 5:08 AM EDT 03/07/2022 5:19 AM EDT Narrative Resulting Agency Comment Spec In Lab Shania Will MD CHEMISTRY ORDERABLE S Performing Organization Address City/[facility]/ZIP Co de Phone Number [facility] [place] [address] * Magnesium (03/07/2022 5:08 AM EDT) Magnesium 0.89 0.69 - 1.07 mmol/L [facility] Blood 03/07/2022 5:08 AM EDT 03/07/2022 5:19 AM EDT Narrative Resulting Agency Comment Spec In Lab Shania Will MD CHEMISTRY ORDERABLE S [facility] [place] [address] * (ABNORMAL) Basic Metabolic Panel (non-fasting) (03/07/2022 5:08 AM EDT) Glucose 111 65 - 199 mg/dL [facility] Comment:Diabetes: >=200 mg/d L plus symptoms Blood Urea Nitrogen 22(H) 8 - 18 mg/dL [facility] Creatinine 0.93 0.70 - 1.20 mg/dL [facility] Sodium 131(L) 135 - 145 mmol/L [facility] Potassium 4.5 3.5 - 5.0 mmol/L [facility] Comment: Please note: ??Patients with WBC >100,000 may have falsely elevated Potassium levels. ??For accurate Potassium quantification in these patients send serum separator tube (gold top) for subsequent determinations. ??Contact the Clinical Chemistry Laboratory if there are any questions. Chloride 100 98 - 107 mmol/L [facility] Carbon Dioxide 22 22 - 31 mmol/L [facility] Anion Gap 9 5 - 15 mmol/L [facility] Calcium 9.2 8.5 - 10.5 mg/dL [facility] Est Glomerular Filtration Rate 64 >=60 mL/min/1. 73 m?? [facility] Comment: This patient's estimated GFR [...] Lab Shania Will [place] [address] * (ABNORMAL) Differential, Automated (03/06/2022 10:15 AM EDT) Pathologist [facility] Neutrophil % 90.7 % [facility] Neutrophil Absolute 5.79 1.70 - 6.10 x10(3)/ L [facility] Lymph % 5.0 % [facility] Lymphocytes Abs 0.3(L) 0.9 - 3.2 x10(3)/ L [facility] Monocyte % 3.8 % [facility] Monocyte Abs 0.2(L) 0.3 - 0.9 x10(3)/[facility] Eos % 0.0 % [facility] Eosinophils Abs 0.0 0.0 - 0.4 x10(3)/[facility] Basophil % 0.0 % [facility] Baso Absolute 0.0 0.0 - 0.1 x10(3)/ L [facility] Immature Gran % 0.50 % [facility] Comment: Immature granulocytes(IG's)percentage and absolute count will include metamyelocytes, myelocytes, and promyelocytes. Blood smears from CBCs yielding IG's will be scanned manually for concordance. If this scan disagrees with the automated IG or if promyelocytes are noted, a manual differential will be performed. Immature Gran Absolute 0.03 0.00 - 0.04 x10(3)/ L [facility] Blood 03/06/2022 10:1 5 AM EDT 03/06/2022 10:21 AM EDT Narrative Resulting Agency Comment Spec In Lab Maryam MUELLER [place] [address] * (ABNORMAL) Hemogram (03/06/2022 10:15 AM EDT) White Blood Cell 6.4 4.0 - 9.5 x10(3)/mc L [facility] Red Blood Cell 3.07(L) 4.00 - 5.21 x10(6)/mc L [facility] Hemoglobin 10.5(L) 11.7 - 15.5 g/dL [facility] Hematocrit 31.1(L) 35.7 - 45.8 % [facility] Mean Cell Volume 101.3(H) 82.6 - 94.4 fL [facility] Mean Cell Hemoglobin 34.2(H) 27.1 - 32.0 pg [facility] Mean Cell Hemoglobin Concentration 33.8 31.7 - 35.0 g/dL [facility] Platelet 111(L) 145 - 357 x10(3)/ L [facility] RDW Standard Deviation 47.2(H) 37.0 - 46.0 fL [facility] RDW coefficient of variation 12.9 11.5 - 14.1 % [facility] Mean Platelet Volume 11.5 7.6 - 12.9 fL [facility] NRBC% auto 0.0 % [facility] NRBC Absolute 0.000 0.000 - 0.000 x10(3)/mc L [facility] Blood 03/06/2022 10:1 5 AM EDT 03/06/2022 10:21 AM EDT Narrative Resulting Agency Comment Spec In Lab Maryam MUELLER HEMATOLOGY ORDERABL ES [facility] [place] [address] * Phosphorus (03/06/2022 10:15 AM EDT) Phosphorus 3.3 2.5 - 4.5 mg/dL [facility] Blood 03/06/2022 10:1 5 AM EDT 03/06/2022 10:21 AM EDT Narrative Resulting Agency Comment Spec In Lab Shania Will MD CHEMISTRY ORDERABLE S Performing Organization Address City/[facility]/ZIP Co de Phone Number [facility] [place] [address] * Magnesium (03/06/2022 10:15 AM EDT) Magnesium 0.69 0.69 - 1.07 mmol/L [facility] Blood 03/06/2022 10:1 5 AM EDT 03/06/2022 10:21 AM EDT Narrative Resulting Agency Comment Spec In Lab Shania Will MD CHEMISTRY ORDERABLE S Performing Organization Address [facility] Co de Phone Number [facility] [place] [address] * (ABNORMAL) Basic Metabolic Panel (non-fasting) (03/06/2022 10:15 AM EDT) Pathologist [facility] Glucose 155 65 - 199 mg/dL [facility] Comment:Diabetes: >=200 mg/d L plus symptoms Blood Urea Nitrogen 29(H) 8 - 18 mg/dL [facility] Creatinine 1.25(H) 0.70 - 1.20 mg/dL [facility] Sodium 134(L) 135 - 145 mmol/L [facility] [...] mmol/L [facility] Carbon Dioxide 23 22 - 31 mmol/L [facility] Anion Gap 10 5 - 15 mmol/L [facility] Calcium 8.9 8.5 - 10.5 mg/dL [facility] Est Glomerular Filtration Rate 45(L) >=60 mL/min/1. 73 m?? [facility] Comment: This patient's estimated GFR [...] [facility] Co de Phone Number [facility] [place] [address] * (ABNORMAL) Differential, Automated (03/06/2022 4:29 AM EDT) Neutrophil % 90.5 % [facility] Neutrophil Absolute 4.47 1.70 - 6.10 x10(3)/mc L [facility] Lymph % 6.9 % [facility] Lymphocytes Abs 0.3(L) 0.9 - 3.2 x10(3)/mc L [facility] Monocyte % 2.2 % [facility] Monocyte Abs 0.1(L) 0.3 - 0.9 x10(3)/mc L [facility] Eos % 0.0 % [facility] Eosinophils Abs 0.0 0.0 - 0.4 x10(3)/mc L [facility] Basophil % 0.2 % [facility] Baso Absolute 0.0 0.0 - 0.1 x10(3)/mc L [facility] Immature Gran % 0.20 % [facility] Comment: Immature granulocytes(IG's)percentage and absolute count will include metamyelocytes, myelocytes, and promyelocytes. Blood smears from CBCs yielding IG's will be scanned manually for concordance. If this scan disagrees with the automated IG or if promyelocytes are noted, a manual differential will be performed. Immature Gran Absolute 0.01 0.00 - 0.04 x10(3)/ L [facility] Blood 03/06/2022 4:29 AM EDT 03/06/2022 4:49 AM EDT Narrative Resulting Agency Comment Spec In Lab Prakash Mendez MD HEMATOLOGY ORDERABLE S [facility] [place] [address] * (ABNORMAL) Hemogram (03/06/2022 4:29 AM EDT) White Blood Cell 4.9 4.0 - 9.5 x10(3)/ L [facility] Red Blood Cell 3.08(L) 4.00 - 5.21 x10(6)/ L [facility] Hemoglobin 10.5(L) 11.7 - 15.5 g/dL [facility] Hematocrit 31.0(L) 35.7 - 45.8 % [facility] Mean Cell Volume 100.6(H) 82.6 - 94.4 fL [facility] Mean Cell Hemoglobin 34.1(H) 27.1 - 32.0 pg [facility] Mean Cell Hemoglobin Concentration 33.9 31.7 - 35.0 g/dL [facility] Platelet 104(L) 145 - 357 x10(3)/ L [facility] RDW Standard Deviation 47.5(H) 37.0 - 46.0 fL [facility] RDW coefficient of variation 12.9 11.5 - 14.1 % [facility] Mean Platelet Volume 11.8 7.6 - 12.9 fL [facility] NRBC% auto 0.0 % [facility] NRBC Absolute 0.000 0.000 - 0.000 x10(3)/mc L [facility] Blood 03/06/2022 4:29 AM EDT 03/06/2022 4:49 AM EDT Narrative Resulting Agency Comment Spec In Lab Prakash Mendez MD HEMATOLOGY ORDERABLE S [facility] [place] [address] * (ABNORMAL) Basic Metabolic Panel (non-fasting) (03/06/2022 4:29 AM EDT) Glucose 140 65 - 199 mg/dL [facility] Comment:Diabetes: >=200 mg/d L plus symptoms Blood Urea Nitrogen 31(H) 8 - 18 mg/dL [facility] Creatinine 1.32(H) 0.70 - 1.20 mg/dL [facility] Sodium 136 135 - 145 mmol/L [facility] Potassium 5.3(H) 3.5 - 5.0 mmol/L [facility] Comment: Please note: ??Patients with WBC >100,000 may have falsely elevated Potassium levels. ??For accurate Potassium quantification in these patients send serum separator tube (gold top) for subsequent determinations. ??Contact the Clinical Chemistry Laboratory if there are any questions. Chloride 103 98 - 107 mmol/L [facility] Carbon Dioxide 23 22 - 31 mmol/L [facility] Anion Gap 10 5 - 15 mmol/L [facility] Calcium 9.0 8.5 - 10.5 mg/dL [facility] Est Glomerular Filtration Rate 42(L) >=60 mL/min/1. 73 m?? [facility] Comment: This patient's estimated GFR [...] Lab Shania Will MD CHEMISTRY ORDERABLE S [facility] [place] [address] * POCT Glucose (03/05/2022 12:18 PM EDT) Glucose, POC 94 65 - 199 mg/dL [facility] Comment: Supplemental ranges: <140 mg/dL before meals <180 mg/dL all other times of the day Blood 03/05/2022 12:1 8 PM EDT 03/05/2022 12:18 PM EDT Shania Will MD POINT OF CARE TEST ORDERABLES Performing Organization Address City/[facility]/ZIP Co de Phone Number [facility] [place] [address] documented in this encounter Visit Diagnoses Diagnosis [...] Unit) documented in this encounter Care Teams Zigzag Topstitcher Relationship Specialty Start Date End Date Ana Her MD [address] [place] [address] PCP - General 07/29/13 documented as of this encounter
--- OUTSIDE RECORDS SUMMARY | 2024-05-16 11:15 | XMS_ITS | Clinical Summary ---
Author Organization [facility] [place] [address] Care Team Providers Care Polishing Machine Operator Name Role Phone Ana Her MD Primary Care Provider [phone] Allergies No known active allergies Medications Medication [...] eliquis and has been managed by [facility]. She has [...] and ECG with Dr. Ana Her in [place] in January She will discuss ECHO results [...] - TT3 and FT4 nl - My EMISSIONS ENGINEER colleague called and spoke with covering [...] history exists Medical Devices Implanted Type Area Manager Fire Device Identifier Shelf Expiration Date Model / Serial / Lot Breast Clip-02/26/20 17 Implanted: by Enzo Burkett MD (Quantity not on file) Breast Clip Left: Breast Bard - 0614 05/04/2019 [employer] ULTRACOR BREAST TISSUE MARKER ULTRASOUND ENHANCED BLANCA / / [id number] Description:BLANCA Procedures Procedure Name Priority Date/Time Associated [...] neck of femur, unspecified laterality exterminator helper termite current 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 inhibitor from Last [...] have questions please contact the health healthcare facility administrator that requested your imaging first. ? Electronically signed by: Digna Noel MD, [facility] ([phone]), at 06/11/2021 9:20 AM Jeanine Lobato PROFESSOR OF PHYSICAL EDUCATION IMG MAMMO ORD ERABLES * DXA Central [...] BMD measurements and plots are available in EMaclear under the imaging tab. Paper copies will be sent to providers without [employer] access. If you have received this report without the data sheet and do not have access to [employer], please contact Radiology Robot Operator at [phone] Thursday thru Thursday 8am-4pm. Thank you for letting us participate in the care of this patient. ??If you are a health care provider and have any questions regarding this report, please contact the number below. ??For patients who have questions please contact the health healthcare facility administrator that requested your imaging first. ? Electronically signed by: Nat Epperson MD, [facility] ([phone]), at 11/19/2020 1:09 PM Narrative 11/19/2020 1:09 [...] BMD measurements and plots are available in EPower Visionunder the imaging tab. Paper copies will be sent to providers without E- access.If you have received this report without the data sheet and do not haveaccess to E-, please contact Radiology Robot Operator at [phone] Thursday thrriday 8am-4pm. Thank you for letting us participate in the care of this patient. If youare a health care provider and have any questions regarding this report,please contact the number below. For patients who have questions please contactthe health healthcare facility administrator that requested your imaging first. Ricky Lowry [...] Status decision made by: Patient Care Teams Polishing Machine Operator Relationship Specialty Start Date End Date Ana Her MD [facility] [address] [place] [address] PCP - General 07/29/13
--- OUTSIDE RECORDS SUMMARY | 2024-05-16 11:15 | XMS_ITS | Encounter Summary ---
[place] [address] Care Team Providers Care Driver Salesman Name Role Phone Ana Her MD Primary Care Provider [phone] Encounter Details Date Type Department Care Team (Late st Contact Info) Description 02/26/2022 Orders [place] [address] Alicia Manning RN Social History Tobacco Use [...] on filedocumented in this encounter Care Teams Driver Salesman Relationship Specialty Start Date End Date Ana Her MD [address] [place] [address] PCP - General 07/29/13 documented as of this encounter
--- OUTSIDE RECORDS SUMMARY | 2024-05-16 11:15 | XMS_ITS | Encounter Summary ---
[place] [address] Care Team Providers Care Sponge Buffer Name Role Phone Ana Her MD Primary Care Provider [phone] Encounter Details Date Type Department Care Team (Late st Contact Info) Description 10/23/2022 Telephone Mammography/[place] [phone] Aby Loredo Social History Tobacco Use Types [...] on filedocumented in this encounter Care Teams Sponge Buffer Relationship Specialty Start Date End Date Ana Her MD [address] [place] [address] PCP - General 07/29/13 documented as of this encounter
--- OUTSIDE RECORDS SUMMARY | 2024-05-16 11:15 | XMS_ITS | Encounter Summary ---
Author Organization [facility] [place] [address] Care Team Providers Care Fermentation Operator Name Role Phone Ana Her MD Primary Care Provider [phone] Encounter Details Date Type Department Care Team (Late st Contact Info) Description 01/08/2022 7:42 AM EDT Anesthesia [place] [address] Alisa Naqvi MD [facility] [place] [address] Anesthesia Record Procedure Summary Procedure Name Responsible [...] cephalic vein (lateral side of arm), left; [id number] catheter system; Anatomical Landmarks; 20 gauge; Joslyn [...] Procedure Summary Date: 01/08/22 Room / Location: [facility] OR [address] [place] [address] MAIN OR Anesthesia Start: 741 Anesthesia Stop: 825 Procedure: EGD, UPPER GI ENDOSCOPY (N/A Trunk) Diagnosis: (Hiatal hernia) Surgeons: Laura Will MD Responsible Provider: Alisa Naqvi MD Anesthesia Type: general ASA Status: 3 All Anesthesia Providers: Anesthesiologist: Alisa Naqvi MD White Metal Caster: Nghia Valerio MD Vitals Value Taken Time BP 98/56 01/08/22 0823 Temp Pulse Resp SpO2 99 % 01/08/22826 Pain Level Vitals shown include unvalidated device data. Patient Location: PACU/LOCATED WITHIN [facility] Level of Consciousness: Conscious but [...] 6.43) performed by Malika Chen MD at [facility] MAIN OR ??? PRO INTRAOP SENTINEL LYMPH ID W/DYE INJECTION Left 03/30/2017 INTRAOPERATIVE ID (MAPPING) SENTINEL LYMPH NODE,INCLUDES INJECTION (WRVU 2.5) performed by Malika Chen MD at [facility] MAIN OR ??? PRO MASTECTOMY PARTIAL Left 03/30/2017 MASTECTOMY PARTIAL (WRVU 10.13) performed by Malika Chen MD at [facility] MAIN OR Social History Tobacco Use [...] mg documented in this encounter Care Teams Fermentation Operator Relationship Specialty Start Date End Date Ana Her MD [facility] [address] [place] [address] PCP - General 07/29/13 documented as of this encounter
--- OUTSIDE RECORDS SUMMARY | 2024-05-16 11:15 | XMS_ITS | Encounter Summary ---
Author Organization [facility] [place] [address] Care Team Providers Care Certified Low Vision Therapist Name Role Phone Ana Her MD Primary Care Provider [phone] Reason for Visit * Consultation (Routine) - Closed Specialty Diagnoses / Procedures Referred By Christiano hackett Referred To Contact General Surgery Diagnoses Hiatal hernia Ana Her MD [address] [place] [address] [facility] Gen Surgery [address] [place] [address] Referral ID Status Reason Start Date Expiration Date V isits Requested Visits Authorized [id number] Closed Consult, Test & Treat 09/23/2021 09/23/2022 6 6 Encounter Details Date Type Department Care Team (Latest Contact Info) Description 12/05/2021 3:00 PM EDT Office [place] [address] Laura Will MD [facility] [place] [address] Paraesophageal hernia Social History Tobacco [...] of left breast of female, estrogen receptor erxgktiwB46.512, Z17.0 ??? Anemia D64.9 ??? Aortic valve [...] by Malika Chen MD at [facility] MAIN OR ??? PRO INTRAOP SENTINEL LYMPH ID W/DYE INJECTION Left 03/30/2017 INTRAOPERATIVE ID (MAPPING) SENTINEL LYMPH NODE,INCLUDES INJECTION (WRVU 2.5) performed by Malika Chen MD at [facility] MAIN OR ??? PRO MASTECTOMY PARTIAL Left 03/30/2017 MASTECTOMY PARTIAL (WRVU 10.13) performed by Malika Chen MD at [facility] MAIN OR Cholecystectomy Medications: Current Outpatient [...] gangrene documented in this encounter Care Teams Certified Low Vision Therapist Relationship Specialty Start Date End Date Ana Her MD [address] [place] [address] PCP - General 07/29/13 documented as of this encounter
--- OUTSIDE RECORDS SUMMARY | 2024-05-16 11:15 | XMS_ITS | Encounter Summary ---
Author Organization [facility] [place] [address] Care Team Providers Care Bobbin Presser Name Role Phone Ana Her MD Primary Care Provider [phone] Reason for Visit * Reason Comments Advice Only BBR * Consultation (Routine) - Closed Specialty Diagnoses / Procedures Referred By Chrisitano hackett Referred To Contact Plastic Surgery Diagnoses Malignant neoplasm of lower-outer quadrant of left breast of female, estrogen receptor positive Macromastia Jeanine Lobato APRN [facility] [place] [address] [facility] Plastic Surg [address] [place] [address] Referral ID Status Reason Start Date Expiration Date V isits Requested Visits Authorized [id number] Closed Consult, Test & Treat 06/11/2021 06/11/2022 1 1 Encounter Details Date Type Department Care Team (Late st Contact Info) Description 07/09/2021 8:30 AM EST Office [place] [address] Med Hudson MD [facility] [place] [address] Macromastia Social History Tobacco Use [...] physical with your primary care doctor and Explosive Ordnance Manager clearance Two Weeks prior to Surgery [...] Day of Surgery You will need a spotter driver. If you do not have a spotter driver, your surgery will be canceled. DO [...] pm) For an appointment or insurance questions [phone] For questions pertaining to your surgical date [phone] For nursing related questions [phone] On weekends, holidays or after office hours: Call and ask the core winding operator to page the Plastic Surgery Resident plant operator control room operator. documented in this encounter Progress Notes * [...] was normal. This was performed at [facility]. She has completed a breast specific questionnaire: [...] None of the time Conservative Therapy Treatments: [facility] P[facility] CONSERVATIVE THERAPY TREATMENTS 07/09/2021 Physical therapy [...] at [facility] MAIN OR Family History Problem [...] of her breast-related symptoms. She watched the ARUNLFO video on breast reduction, and was provided [...] surgery is best done at a realistic long term stable weight. We talked about the outpatient [...] revisions for scarring or asymmetry.) Garcia or Sumner Pattern Incision: More scarring on breast, but [...] Timeframe: Elective Procedure: Bilateral breast reduction CPT: 66733 Surgical Technique: Garcia, Pedicle Surgical site: Breasts Side: Bilateral Anesthesia: General Follow up: 1 day for drain removal; 7-10 days for HCK PAT: H+P PCP, Cardiac clearance. Need to discontinue blood thinners pre-op? Xarelto documented in this encounter Plan of Treatment Not on file documented as of this encounter Visit Diagnoses Diagnosis Macromastia Hypertrophy of breast documented in this encounter Care Teams Bobbin Presser Relationship Specialty Start Date End Date Ana Her MD [address] [place] [address] PCP - General 07/29/13 documented as of this encounter
--- OUTSIDE RECORDS SUMMARY | 2024-05-16 11:15 | XMS_ITS | Encounter Summary ---
[place] [address] Care Team Providers Care Plumbing And Heating Contractor Name Role Phone Ana Her MD Primary Care Provider [phone] Encounter Details Date Type Department Care Team (Late st Contact Info) Description 11/01/2021 Telephone [place] [address] Chelsie Lauren Social History Tobacco Use Types [...] on filedocumented in this encounter Care Teams Plumbing And Heating Contractor Relationship Specialty Start Date End Date Ana Her MD [address] [place] [address] PCP - General 07/29/13 documented as of this encounter
--- OUTSIDE RECORDS SUMMARY | 2024-05-16 11:15 | XMS_ITS | Encounter Summary ---
[place] [address] Care Team Providers Care Lasting Machine Operator Name Role Phone Ana Her MD Primary Care Provider [phone] Encounter Details Date Type Department Care Team (Late st Contact Info) Description 02/04/2022 12:00 PM EDT [place] [address] Social History Tobacco Use Types Packs/Day Years [...] on filedocumented in this encounter Care Teams Lasting Machine Operator Relationship Specialty Start Date End Date Ana Her MD [address] [place] [address] PCP - General 07/29/13 documented as of this encounter
--- OUTSIDE RECORDS SUMMARY | 2024-05-16 11:16 | XMS_ITS | Encounter Summary ---
[place] [address] Care Team Providers Care Operator And Truck Driver Name Role Phone Ana Her MD Primary Care Provider [phone] Encounter Details Date Type Department Care Team (Late st Contact Info) Description 05/19/2017 Telephone Hematology [place] [address] Sandy Chapman Social History Tobacco Use Types [...] on filedocumented in this encounter Care Teams Operator And Truck Driver Relationship Specialty Start Date End Date Ana Her MD [address] [place] [address] PCP - General 07/29/13 documented as of this encounter
--- OUTSIDE RECORDS SUMMARY | 2024-05-16 11:16 | XMS_ITS | Encounter Summary ---
[place] [address] Care Team Providers Care Cow Rider Name Role Phone Ana Her MD Primary Care Provider [phone] Reason for Visit * Reason Comments Schedule Office Case Encounter Details Date Type Department Care Team (Late st Contact Info) Description 04/23/2017 2:00 PM EST Office Visit Hematology [place] [address] Ricky Lowry MD Malignant neoplasm of lower-outer [...] ??Excision with image-guided localization ?Lymph Node Sampling: ??[place] lymph node(s) ?Specimen Laterality: ??Left Tumor ?Histologic [...] ??DCIS not present in specimen Lymph Nodes ?[place] Lymph Nodes: [place] lymph node biopsy performed ?Number of [place] Nodes Examined: ??3 ?Number of Lymph Node(s) [...] DEXA scan was in this year at [facility]. There is no history [...] positive documented in this encounter Care Teams Cow Rider Relationship Specialty Start Date End Date Ana Her MD [address] [place] [address] PCP - General 07/29/13 documented as of this encounter
--- OUTSIDE RECORDS SUMMARY | 2024-05-16 11:16 | XMS_ITS | Encounter Summary ---
Author Organization [facility] [place] [address] Care Team Providers Care Station Baggage Porter Name Role Phone Ana Her MD Primary Care Provider [phone] Encounter Details Date Type Department Care Team (Latest Contact Info) Description 03/30/2017 8:30 AM [facility] Hospital [place] [address] Malika Chen MD [facility] [place] [address] Malignant neoplasm of upper-outer quadrant of left [...] mg documented in this encounter Care Teams Station Baggage Porter Relationship Specialty Start Date End Date Ana Her MD [address] [place] [address] PCP - General 07/29/13 documented as of this encounter
--- OUTSIDE RECORDS SUMMARY | 2024-05-16 11:16 | XMS_ITS | Encounter Summary ---
Author Organization [facility] [place] [address] Care Team Providers Care Ctc Operator Name Role Phone Ana Her MD Primary Care Provider [phone] Encounter Details Date Type Department Care Team (Late st Contact Info) Description 05/10/2018 1:10 PM EST - 05/10/2018 11:59 PM EST Hospital Encounter Mammography/[place] [address] Hiral Padgett, WENDY Encounter for screening mammogram [...] cancer documented in this encounter Care Teams Ctc Operator Relationship Specialty Start Date End Date Ana Her MD [address] [place] [address] PCP - General 07/29/13 documented as of this encounter
--- OUTSIDE RECORDS SUMMARY | 2024-05-16 11:16 | XMS_ITS | Encounter Summary ---
Author Organization [facility] [place] [address] Care Team Providers Care Industrial Engineering Name Role Phone Ana Her MD Primary Care Provider [phone] Encounter Details Date Type Department Care Team (Latest Contact Info) Description 05/22/2020 10:46 AM EST - 05/22/2020 11:59 PM [facility] Encounter Mammography/[place] [address] Jeanine Lobato APRN [facility] [place] [address] Malignant neoplasm of lower-outer quadrant of left [...] mammogram documented in this encounter Care Teams Industrial Engineering Relationship Specialty Start Date End Date Ana Her MD [facility] [facility] [address] [place] [address] PCP - General 07/29/13 documented as of this encounter
--- OUTSIDE RECORDS SUMMARY | 2024-05-16 11:16 | XMS_ITS | Encounter Summary ---
Author Organization [facility] [place] [address] Care Team Providers Care Supervisor Brew House Name Role Phone Ana Her MD Primary Care Provider [phone] Encounter Details Date Type Department Care Team (Late st Contact Info) Description 03/30/2017 9:30 AM EST - 03/30/2017 11:28 AM EST Surgery [place] [address] Brant Chen MD [facility] GENERAL [place] [address] MASTECTOMY PARTIAL (WRVU 10.13) Social History Tobacco [...] shower 24 hours Activity as tolerated Call [phone] with any questions Do not soak incision [...] Alma Delia had a bone scan in [place] which was read as possible metastasis in the left tibia. Of note- she fractured this area recently. She has recovered well. ?? PMH HNT NIDDM not on meds Spinal stenosis Fractured left tibial plateau [place], 2017 GERD ?? FH: Maternal first cousin with breast cancer Brother with rectal cancer Sister with PE ? SH: lives alone. Has good support from sisters who live in [place]. Non smoker. Has a son who lives [...] evidence of metastasis. Discussed options for surgery. AlmaD elia has watched the ARNULFO video and has [...] Chen MD - 03/30/2017 12:27 PM EST [facility] Operative Note Patient Name: Digna Olson : [id number] MR#: [id number] Case Date: 03/30/2017 Surgeon: Surgeon(s) and Role: [...] [place] [address]. Remaining count within the axilla was 1982. [...] PM EST 03/30/2017 12:09 PM EST Narrative [facility] - 03/30/2017 12:09 PM EST Specimen requisition ordered. ??Separate Pathology report to follow Brant Chen MD PATHOLOGY/CYTOLOGY ORDERABLES [facility] [place] [address] * Specimen to Pathology (surgical or derm) (03/30/2017 12:08 PM EST) AP Specimen 03/30/2017 12:0 8 PM EST 03/30/2017 12:08 PM EST Narrative [facility] - 03/30/2017 12:08 PM EST Specimen requisition ordered. ??Separate Pathology report to follow Brant Chen MD PATHOLOGY/CYTOLOGY ORDERABLES Performing Organization Address [facility] Co de Phone Number [facility] [place] [address] * Specimen to Pathology (surgical or derm) (03/30/2017 12:00 PM EST) AP Specimen 03/30/2017 12:0 0 PM EST 03/30/2017 12:00 PM EST Narrative [facility] - 03/30/2017 12:00 PM EST Specimen requisition ordered. ??Separate Pathology report to follow Brant Chen MD PATHOLOGY/CYTOLOGY ORDERABLES Performing Organization Address [facility] [place] [address] * Specimen to Pathology (surgical or derm) (03/30/2017 11:51 AM EST) AP Specimen 03/30/2017 11:5 1 AM EST 03/30/2017 11:51 AM EST Narrative [facility] - 03/30/2017 11:51 AM EST Specimen requisition ordered. ??Separate Pathology report to follow Brant Chen MD PATHOLOGY/CYTOLOGY ORDERABLES Performing Organization Address [facility] Co de Phone Number [facility] [place] [phone] * Surgical Pathology Report (03/30/2017 11:50 AM EST) Final Diagnosis [id number] ? Location: [facility]; [facility]; A The signing pathologist has (i) examined the relevant preparation(s) for the specimen(s) and (ii) rendered or confirmed the diagnosis(es). . ?Surgical Pathology DIAGNOSIS A,B - See Synoptic C - Left breast, Deep/lateral margin re-excision - ?Benign fatty breast tissue. D - Left breast, Superficial margin re-excision - ?Benign fatty breast tissue. See Note Note - [place] ink (indicating additional cranial margin) is also present on this superficial margin re-excision. ---- Specimen Parts: ?? A - Left axilliary sentinel node B - Left breast partial mastectomy Specimen ? Procedure: ??Excision with image-guided localization ? Lymph Node Sampling: ?? [place] lymph node(s) ? Specimen Laterality: ?? Left [...] not present in specimen Lymph Nodes ? [place] Lymph Nodes: ?? [place] lymph node biopsy performed ? Number of [place] Nodes Examined: ?3 ? Number of Lymph [...] Chávez DO Verified: ??04/01/2017 ?Pathologist Performed at: ??-[facility] Dept. of Pathology, [place], [place] CLINICAL INFORMATION Specimen Submitted: A - [...] and there are ??no close margins. per [facility] Radiology . Specimen Description: According [...] 0.8 x 0.4 x 0.4 cm. Color: [place] and yellow. Consistency: Soft. Location: Slices III and IV. Nearest Margin: 0.6 cm to the cranial margin. Other Margins: 0.8 cm to the deep margin, 1.0 cm to the superficial margin, ? > 2 cm from all other margins. OTHER Parenchyma: Predominately fatty with scant fibrous tissue. Wire/Clip: Biopsy marker clip identified within slice IV. SECTIONS/PROCESSI NG: (1) volunteer patient representative slice I, lateral margin; (2) slice III, lesion to cranial margin; (3-5) remainder of slice III; (6) slice IV, lesion to cranial margin (clip); (7-8) remainder of slice IV; (9) volunteer patient representative slice V; (10) volunteer patient representative slice X, medial margin. (R10) Ischemic [...] sectioned. (T3) ??sns 04/01/2017 9:38 AM EST [facility] BREAST STRUCTURE / Unknown 03/30/2017 11:50 AM EST 03/30/2017 11:50 AM EST BREAST STRUCTURE / Unknown 03/30/2017 11:50 AM EST 03/30/2017 11:50 AM EST BREAST STRUCTURE / Unknown 03/30/2017 11:50 AM EST 03/30/2017 11:50 AM EST BREAST STRUCTURE / Unknown 03/30/2017 11:50 AM EST 03/30/2017 11:50 AM EST Brant Chne MD PATHOLOGY/CYTOLOGY ORDERABLES [facility] [place] [address] * Mammo Direct Digital Left (03/30/2017 9:15 [...] Routine documented in this encounter Care Teams Supervisor Brew House Relationship Specialty Start Date End Date Ana Her MD [address] [place] [address] PCP - General 07/29/13 documented as of this encounter
--- OUTSIDE RECORDS SUMMARY | 2024-05-16 11:16 | XMS_ITS | Encounter Summary ---
[place] [address] Care Team Providers Care Facility Mechanic Name Role Phone Ana Her MD Primary Care Provider [phone] Encounter Details Date Type Department Care Team (Late st Contact Info) Description 05/10/2018 2:15 PM EST Office [place] [address] Hiral Padgett, WENDY History of breast cancer [...] with image-guided localization ?Lymph Node Sampling: ?? [place] lymph node(s) ?Specimen Laterality: ?? Left Tumor [...] ?DCIS not present in specimen Lymph Nodes ?[place] Lymph Nodes: ?? [place] lymph node biopsy performed ?Number of [place] Nodes Examined: ?3 ?Number of Lymph Node(s) [...] mammogram today is cat 2. Leaving for [place] later today for a cardiac ablation/a fib [...] breast documented in this encounter Care Teams Facility Mechanic Relationship Specialty Start Date End Date Ana Her MD [address] [place] [address] PCP - General 07/29/13 documented as of this encounter
--- OUTSIDE RECORDS SUMMARY | 2024-05-16 11:16 | XMS_ITS | Encounter Summary ---
[place] [address] Care Team Providers Care Content Creation Manager Name Role Phone Ana Her MD Primary Care Provider [phone] Encounter Details Date Type Department Care Team (Late st Contact Info) Description 05/06/2017 Telephone Radiation Oncology at [address] [address] Maria A Antonio RN Social [...] on filedocumented in this encounter Care Teams Content Creation Manager Relationship Specialty Start Date End Date Ana Her MD [address] [facility] [place] [address] PCP - General 07/29/13 documented as of this encounter
--- OUTSIDE RECORDS SUMMARY | 2024-05-16 11:16 | XMS_ITS | Encounter Summary ---
[place] [address] Care Team Providers Care Houseperson Name Role Phone Ana Her MD Primary Care Provider [phone] Encounter Details Date Type Department Care Team (Late st Contact Info) Description 04/05/2018 Telephone [place] [address] Adrianna Jones Social History Tobacco Use Types [...] Padgett. Patient advises she is admitted at [facility] for afib and is pending procedure etc. Patient will call to reschedule once she is discharged home. documented in this encounter Plan of Treatment Not on file documented as of this encounter Visit Diagnoses Not on filedocumented in this encounter Care Teams Houseperson Relationship Specialty Start Date End Date Ana Her MD [address] [place] [address] PCP - General 07/29/13 documented as of this encounter
--- OUTSIDE RECORDS SUMMARY | 2024-05-16 11:16 | XMS_ITS | Encounter Summary ---
Author Organization [facility] [place] [address] Care Team Providers Care Advisory Internship Name Role Phone Ana Her MD Primary Care Provider [phone] 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 * Diagnostic Test (Routine) - Closed Specialty Diagnoses / Procedures Referred By Contac t Referred To Contact Radiology Diagnoses Malignant neoplasm of lower-outer quadrant of left breast of female, estrogen receptor positive Osteopenia of neck of femur, unspecified laterality lobsterman current 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 inhibitor Procedures DXA Central-Spine, Hip, And/Or Whole Body (Generic) Ricky Lowry MD [facility] HEMATOLOGY/[place] [address] [facility] Rad Xray [address] [place] [address] [place] [address] Referral ID Status Reason Start Date Expiration Date V isits Requested Visits Authorized [id number] Closed Specialty Service Requested 05/10/2018 05/10/2019 1 1 Reason for Visit * Diagnostic Test (Routine) - Closed Specialty Diagnoses / Procedures Referred By Contac t Referred To Contact Radiology Diagnoses Malignant neoplasm of lower-outer quadrant of left breast of female, estrogen receptor positive Osteopenia of neck of femur, unspecified laterality lobsterman current 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 inhibitor Procedures DXA Central-Spine, Hip, And/Or Whole Body (Generic) Ricky Lowry MD [facility] HEMATOLOGY/[place] [address] [facility] Rad Xray [address] [place] [address] Dr [place], [place] [address] Referral ID Status Reason Start Date Expiration Date V isits Requested Visits Authorized [id number] Closed Specialty Service Requested 05/10/2018 05/10/2019 1 1 Encounter Details Date Type Department Care Team (Latest Contact Info) Description 11/09/2018 1:03 PM EDT - 11/09/2018 11:59 PM EDT Hospital Encounter XRay at [address] [place] [address] Ricky Lowry MD Malignant neoplasm of lower-outer quadrant of left breast of female, estrogen receptor positive; Osteopenia of neck of femur, unspecified laterality; lobsterman current 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 inhibitor Discharge Disposition: [...] BMD measurements and plots are available in EDigitalOcean under the imaging tab. Paper copies will be sent to providers without E-DH access. If you have received this report without the data sheet and do not have access to EDigitalOcean, please contact Radiology Chief Creative Officer at [phone] Thursday thru Thursday 8am-4pm. Thank you for letting us participate in the care of this patient. For questions regarding this report, please contact the number below. ? Electronically signed by: JULIET Jackson [facility] ([phone]), at 11/10/2018 10:55 AM Narrative 11/10/2018 10:55 [...] Normal bone mineral density. Procedure Note Khushi Hguhes MD - 11/10/2018 EXAMINATION: DXA CENTRAL-SPINE, HIP, [...] BMD measurements and plots are available in Preparisunder the imaging tab. Paper copies will be sent to providers without InterpretOmics access.If you have received this report without the data sheet and do not haveaccess to InterpretOmics, please contact Radiology Chief Creative Officer at [phone] Thursday thruFriday 8am-4pm. Thank you for letting us participate in the care of this patient. Forquestions regarding this report, please contact the number below. Electronically signed by: Khushi Hughes [facility] [place] ([phone]),at 11/10/2018 10:55 AM Ricky Lowry MD IMG DEXA ORDERABLES documented in this encounter Visit Diagnoses Diagnosis Malignant neoplasm of lower-outer quadrant of left breast of female, estrogen receptor positive Osteopenia of neck of femur, unspecified laterality custodial current 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 inhibitor Use of aromatase inhibitors documented in this encounter Care Teams Advisory Internship Relationship Specialty Start Date End Date Ana Her MD [facility] [address] [facility] 1 [place] [address] PCP - General 07/29/13 documented as of this encounter
--- OUTSIDE RECORDS SUMMARY | 2024-05-16 11:16 | XMS_ITS | Encounter Summary ---
Author Organization [facility] [place] [address] Care Team Providers Care Therapeutic Assistant Name Role Phone Ana Her MD Primary Care Provider [phone] 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 * Diagnostic Test (Routine) - Closed Specialty Diagnoses / Procedures Referred By Contac t Referred To Contact Radiology Diagnoses Malignant neoplasm of lower-outer quadrant of left breast of female, estrogen receptor positive Osteopenia of neck of femur, unspecified laterality terminal carman current 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 inhibitor Procedures DXA Central Spine, Hip, and/or Whole Body (Generic) Ricky Lowry MD [facility] HEMATOLOGY/[place] [address] [facility] Rad Xray [address] [place] [address] [place] [address] Referral ID Status Reason Start Date Expiration Date V isits Requested Visits Authorized [id number] Closed Specialty Service Requested 05/22/2020 11/19/2021 1 [...] Whole Body (Generic) Ricky Lowry MD [facility] HEMATOLOGY/[place] [address] [facility] Rad Xray [address] [place] [address] Dr [place] br[place]e [phone] Referral ID Status Reason Start Date Expiration Date V isits Requested Visits Authorized [id number] Closed Specialty Service Requested 05/22/2020 11/19/2021 1 1 Encounter Details Date Type Department Care Team (Latest Contact Info) Description 11/15/2020 2:25 PM EDT - 11/15/2020 11:59 PM EDT Hospital Encounter XRay at [address] [place] [address] Ricky Lowry MD Malignant neoplasm of lower-outer quadrant of left breast of female, estrogen receptor positive; Osteopenia of neck of femur, unspecified laterality; terminal carman current 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 omega 4-kem-obb-fish-turm salty 417 mg-120 mg- 276 mg-600 mg [...] terminal carman current 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 inhibitor documented in [...] BMD measurements and plots are available in ERounds under the imaging tab. Paper copies will be sent to providers without E- access. If you have received this report without the data sheet and do not have access to ERounds, please contact Radiology Medical Assisting Program Director at [phone] Thursday thru Thursday 8am-4pm. Thank you for letting us participate in the care of this patient. ??If you are a health care provider and have any questions regarding this report, please contact the number below. ??For patients who have questions please contact the health career placement specialist that requested your imaging first. ? Electronically signed by: Nat Epperson MD, [facility] ([phone]), at 11/19/2020 1:09 PM Narrative 11/19/2020 1:09 [...] BMD measurements and plots are available in ESelventaunder the imaging tab. Paper copies will be sent to providers without - access.If you have received this report without the data sheet and do not haveaccess to [facility], please contact Radiology Medical Assisting Program Director at [phone] Thursday thrrid 8am-4pm. Thank you for letting us participate in the care of this patient. If youare a health care provider and have any questions regarding this report,please contact the number below. For patients who have questions please contactthe health career placement specialist that requested your imaging first. Electronically signed by: Nat Epperson MD, [facility]([phone]), at 11/19/2020 1:09 PM Ricky Lowry MD IMG DEXA ORDERABLES documented in this encounter Visit Diagnoses Diagnosis Malignant neoplasm of lower-outer quadrant of left breast of female, estrogen receptor positive Osteopenia of neck of femur, unspecified laterality terminal carman current 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 inhibitor Use of aromatase inhibitors documented in this encounter Care Teams Therapeutic Assistant Relationship Specialty Start Date End Date Ana Her MD [address] [place] [address] PCP - General 07/29/13 documented as of this encounter
--- OUTSIDE RECORDS SUMMARY | 2024-05-16 11:16 | XMS_ITS | Encounter Summary ---
Author Organization [place] [address] Care Team Providers Care Financial Services Technician Name Role Phone Ana Her MD Primary Care Provider [phone] Encounter Details Date Type Department Care Team (Late st Contact Info) Description 05/31/2019 1:00 PM EST Office Visit [place] [address] Jeanine Lobato MARINE ENGINEERING CONSULTANT [facility] [place] [address] Encounter for follow-up surveillance of breast cancer; [...] was obtained which revealed IDC which is ER/[place]+, Her2-. She hasno known breast masses, no adenopathy, no nipple discharge. 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 He lives in [place]. She enjoys reading and cooking. She does [...] symptoms. Jeanine Lobato APRN Surgical Oncology P [phone] F [phone] [facility] documented in this encounter Plan [...] mammogram documented in this encounter Care Teams Financial Services Technician Relationship Specialty Start Date End Date Ana Her MD [facility] [address] [facility] 1 [place] [address] PCP - General 07/29/13 documented as of this encounter
--- OUTSIDE RECORDS SUMMARY | 2024-05-16 11:16 | XMS_ITS | Encounter Summary ---
Author Organization [facility] [place] [address] Care Team Providers Care Office Rental Clerk Name Role Phone Ana Her MD Primary Care Provider [phone] Encounter Details Date Type Department Care Team (Latest Contact Info) Description 06/11/2021 8:41 AM EST - 06/11/2021 11:59 PM [facility] Hospital Encounter Mammography/[place] [phone] Jeanine Lobato APRN [facility] [place] [address] Malignant neoplasm of lower-outer quadrant of left [...] Take 40 mg by mouth daily. omega 6-eof-acu-fish-turm salty 417 mg-120 mg- 276 mg-600 mg [...] who have questions please contact the health nursing care attendant that requested your imaging first. ? Jeanine Lobato REFRACTORY SPECIALIST IMG MAMMO ORD ERABLES documented in this encounter Visit Diagnoses Diagnosis Malignant neoplasm of lower-outer quadrant of left breast of female, estrogen receptor positive Breast cancer screening by mammogram documented in this encounter Care Teams Office Rental Clerk Relationship Specialty Start Date End Date Ana Her MD [address] [place] [address] PCP - General 07/29/13 documented as of this encounter
--- OUTSIDE RECORDS SUMMARY | 2024-05-16 11:16 | XMS_ITS | Encounter Summary ---
[place] [address] Care Team Providers Care Malted Milk Supervisor Name Role Phone Ana Her MD Primary Care Provider [phone] Reason for Visit * Reason Comments Follow-up Encounter Details Date Type Department Care Team (Late st Contact Info) Description 05/22/2020 11:40 AM EST Office [place] [address] Jeanine Lobato APRN [facility] DR [place] [address] Encounter for follow-up surveillance of breast cancer; [...] was obtained which revealed IDC which is ER/[place] positive, Her2 negative. Alma Delia opted against [...] ??Excision with image-guided localization ?Lymph Node Sampling: ??[place] lymph node(s) ?Specimen Laterality: ??Left Tumor ?Histologic [...] ??DCIS not present in specimen Lymph Nodes ?[place] Lymph Nodes: [place] lymph node biopsy performed ?Number of [place] Nodes Examined: ??3 ?Number of Lymph Node(s) [...] situation. Results: Imaging performed (bilateral mammogram) at [facility] today shows no evidence [...] available at [employer]) and [employer]. All questions were answered to the patient's satisfaction and they state understanding and agreement with today's treatment plan. They are encouraged to follow up sooner if they develop any new or concerning symptoms. Jeanine Lobato APRN Surgical Oncology P [phone] F [phone] [facility] documented [...] who have questions please contact the health foster care worker that requested your imaging first. [...] mammogram documented in this encounter Care Teams Malted Milk Supervisor Relationship Specialty Start Date End Date Ana Her MD [facility] [address] [place] [address] PCP - General 07/29/13 documented as of this encounter
--- OUTSIDE RECORDS SUMMARY | 2024-05-16 11:16 | XMS_ITS | Encounter Summary ---
Author Organization [facility] [place] [address] Care Team Providers Care Operations And Maintenance Supervisor Name Role Phone Ana Her MD Primary Care Provider [phone] Encounter Details Date Type Department Care Team (Late st Contact Info) Description 04/23/2017 [place] [address] Marjorie Ariza Social History Tobacco Use Types [...] Marjorie Ariza - 04/23/2017 2:43 PM EST Architectural Representative Neon Tube Bender met with pt after consultation with medical [...] filedocumented in this encounter Care Teams Operations And Maintenance Supervisor Relationship Specialty Start Date End Date Ana Her MD [address] [facility] 1 [place] [address] PCP - General 07/29/13 documented as of this encounter
--- OUTSIDE RECORDS SUMMARY | 2024-05-16 11:16 | XMS_ITS | Encounter Summary ---
[place] [address] Care Team Providers Care Marketing Communications Leader Name Role Phone Ana Her MD Primary Care Provider [phone] Encounter Details Date Type Department Care Team (Late st Contact Info) Description 04/09/2017 Abstract Radiation Oncology at [address] [phone] Maria A Antonio, RN Social History Tobacco [...] on filedocumented in this encounter Care Teams Marketing Communications Leader Relationship Specialty Start Date End Date Ana Her MD [address] [place] [address] PCP - General 07/29/13 documented as of this encounter
--- OUTSIDE RECORDS SUMMARY | 2024-05-16 11:16 | XMS_ITS | Encounter Summary ---
Author Organization [facility] [place] [address] Care Team Providers Care Colorman Name Role Phone Ana Her MD Primary Care Provider [phone] Encounter Details Date Type Department Care Team (Latest Contact Info) Description 05/31/2019 10:16 AM EST - 05/31/2019 11:59 PM EST Hospital Encounter Mammography/[place] [phone] Jeanine Lobato APRN [facility] [place] [address] History of breast cancer Discharge Disposition: Home [...] BIRADS CATEGORY 2: Benign findings. * ??[employer] and [employer] Society of [...] breast documented in this encounter Care Teams Colorman Relationship Specialty Start Date End Date Ana Her MD [address] [place] [address] PCP - General 07/29/13 documented as of this encounter
--- OUTSIDE RECORDS SUMMARY | 2024-05-16 11:16 | XMS_ITS | Encounter Summary ---
Author Organization [facility] [place] [address] Care Team Providers Care Bank Representative Name Role Phone Ana Her MD Primary Care Provider [phone] Encounter Details Date Type Department Care Team (Late st Contact Info) Description 03/30/2017 [place] [address] January Ward MSW Social History Tobacco Use [...] was recently diagnosed with invasive mucinous carcinoma. [facility] attempted to meet with pt in Same Day surgery this morning but she was still in radiology. I spoke with her ex-, Keith, who states she will be staying with him tondenise. Their granddaughters are traveling from [place] and plan to accompany pt to see her charging car operator at [facility] tomorrow. Pt has been followed by this physician for her cardiac problems. [facility] will continue to provide support and resources to pt. documented in this encounter Plan of Treatment Not on file documented as of this encounter Visit Diagnoses Not on filedocumented in this encounter Care Teams Bank Representative Relationship Specialty Start Date End Date Ana Her MD [address] [facility] 1 [place] [address] PCP - General 07/29/13 documented as of this encounter
--- OUTSIDE RECORDS SUMMARY | 2024-05-16 11:16 | XMS_ITS | Encounter Summary ---
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 Procedures DXA Central-Spine, Hip, And/Or Whole Body (Generic) Ricky Lowry MD [facility] DR HEMATOLOGY/[place] [address] [facility] Rad Xray [address] [place] [address] [place] [address] Referral ID Status Reason Start Date Expiration Date V isits Requested Visits Authorized [id number] Closed Specialty Service Requested 05/10/2018 05/10/2019 1 1 Reason for Visit * Reason Comments Follow-up Encounter Details Date Type Department Care Team (Late st Contact Info) Description 05/10/2018 2:45 PM EST Office Visit Hematology and Oncology at [facility] [place] [address] Ricky Lowry MD Malignant neoplasm [...] cancer cells with immunostaining) Stain intensity: Strong MI immunoreactivity: Positive (>90% cancer cells with immunostaining) [...] ??Excision with image-guided localization ?Lymph Node Sampling: ??[place] lymph node(s) ?Specimen Laterality: ??Left Tumor ?Histologic [...] ??DCIS not present in specimen Lymph Nodes ?[place] Lymph Nodes: [place] lymph node biopsy performed ?Number of [place] Nodes Examined: ??3 ?Number of Lymph Node(s) [...] A Fib. Cardiology at [facility]. Most recent DEXA scan was last year at [facility]. There is no history [...] for later this week (at [facility]/[place]). No new problems with VELEZ, diplopia, cough, [...] TACHO. Renewal of anastrazole sent. Given [facility] brochure to share with cousins. All [...] BMD measurements and plots are available in EOfficial [employer] Virtual under the imaging tab. Paper copies will be sent to providers without Match[employer] Care[employer] access. If you have received this report without the data sheet and do not have access to [employer], please contact Radiology Hydrogeologist at [phone] Thursday thru Thursday 8am-4pm. Thank you for [...] BMD measurements and plots are available in FounderFuelunder the imaging tab. Paper copies will be sent to providers without Matchpoint Careers access.If you have received this report without the data sheet and do not haveaccess to Match[employer], please contact Radiology Hydrogeologist at [phone] Thursday thruFriday 8am-4pm. Thank you for letting us participate in the care of this patient. Forquestions regarding this report, please contact the number below. 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
--- OUTSIDE RECORDS SUMMARY | 2024-05-16 11:16 | XMS_ITS | Encounter Summary ---
Author Organization [facility] [address] Care Team Providers Care Patient Escort Name Role Phone Ana Her MD Primary Care Provider [phone] Encounter Details Date Type Department Care Team (Late st Contact Info) Description 03/19/2017 Telephone [place] [address] Malika Chen MD [facility] [place] [address] Social History Tobacco Use Types Packs/Day Years [...] no unexpected bleeding. Surgery is scheduled in [facility]. documented in this encounter Plan of Treatment Not on file documented as of this encounter Visit Diagnoses Not on filedocumented in this encounter Care Teams Patient Escort Relationship Specialty Start Date End Date Ana Her MD [address] [facility] [place] 1 [place] [address] PCP - General 07/29/13 documented as of this encounter
--- OUTSIDE RECORDS SUMMARY | 2024-05-16 11:16 | XMS_ITS | Encounter Summary ---
[place] [address] Care Team Providers Care Decision Analyst Name Role Phone Ana Her MD Primary Care Provider [phone] Encounter Details Date Type Department Care Team (Late st Contact Info) Description 11/09/2018 2:45 PM EDT Office Visit Hematology [place] [address] Ricky Lowry MD Malignant neoplasm of lower-outer [...] ??Excision with image-guided localization ?Lymph Node Sampling: ??[place] lymph node(s) ?Specimen Laterality: ??Left Tumor ?Histologic [...] ??DCIS not present in specimen Lymph Nodes ?[place] Lymph Nodes: [place] lymph node biopsy performed ?Number of [place] Nodes Examined: ??3 ?Number of Lymph Node(s) [...] laterality documented in this encounter Care Teams Decision Analyst Relationship Specialty Start Date End Date Ana Her MD [address] [place] [address] PCP - General 07/29/13 documented as of this encounter
--- OUTSIDE RECORDS SUMMARY | 2024-05-16 11:16 | XMS_ITS | Encounter Summary ---
[place] [address] Care Team Providers Care Cost Estimating Engineer Name Role Phone Ana Her MD Primary Care Provider [phone] Reason for Visit * Reason Comments Follow-up Encounter Details Date Type Department Care Team (Late st Contact Info) Description 11/15/2020 4:00 PM EDT Office Visit Hematology [place] [phone] Laura Joaquin PA Malignant neoplasm of lower-outer [...] ??Excision with image-guided localization ?Lymph Node Sampling: ??[place] lymph node(s) ?Specimen Laterality: ??Left Tumor ?Histologic [...] ??DCIS not present in specimen Lymph Nodes ?[place] Lymph Nodes: [place] lymph node biopsy performed ?Number of [place] Nodes Examined: ??3 ?Number of Lymph Node(s) [...] > [place] [facility] [place] cardio[place] May 2018. DEXA scan [...] Medical Oncology - Breast & GI Cancers [facility] Pager [phone] documented in this encounter Plan of Treatment Not on file documented as of this encounter Visit Diagnoses Diagnosis Malignant neoplasm of lower-outer quadrant of left breast of female, estrogen receptor positive documented in this encounter Care Teams Cost Estimating Engineer Relationship Specialty Start Date End Date Ana Her MD [address] [place] [address] PCP - General 07/29/13 documented as of this encounter
--- OUTSIDE RECORDS SUMMARY | 2024-05-16 11:16 | XMS_ITS | Encounter Summary ---
Author Organization Formerly [facility] [place] [address] Care Team Providers Care Etiquette Coach Name Role Phone Ana Her MD Primary Care Provider [phone] Reason for Visit * Reason Comments Follow Up Surgery Encounter Details Date Type Department Care Team (Late st Contact Info) Description 07/13/2017 1:30 PM EDT Office [place] [phone] Hiral Padgett, WENDY History of breast cancer [...] with image-guided localization ?Lymph Node Sampling: ?? [place] lymph node(s) ?Specimen Laterality: ?? Left Tumor [...] ?DCIS not present in specimen Lymph Nodes ?[place] Lymph Nodes: ?? [place] lymph node biopsy performed ?Number of [place] Nodes Examined: ?3 ?Number of Lymph Node(s) [...] breast documented in this encounter Care Teams Etiquette Coach Relationship Specialty Start Date End Date Ana Her MD [facility] [address] [place] [address] PCP - General 07/29/13 documented as of this encounter
--- OUTSIDE RECORDS SUMMARY | 2024-05-16 11:16 | XMS_ITS | Encounter Summary ---
[place] [address] Care Team Providers Care Straight Knife Machine Cutter Name Role Phone Ana Her MD Primary Care Provider [phone] Encounter Details Date Type Department Care Team (Latest Contact Info) Description 03/03/2017 7:55 AM EDT Laboratory Appointment Lab [address] [place] [address] Malignant neoplasm of left breast in female, [...] 7:50 AM EDT) Neutrophil % 72.8 % [facility] Neutrophil Absolute 6.45(H) 1.70 - 6.10 x10(3)/mc L [facility] Lymph % 14.4 % [facility] Lymphocytes Abs 1.3 0.9 - 3.2 x10(3)/ L [facility] Monocyte % 5.6 % [facility] Monocyte Abs 0.5 0.3 - 0.9 x10(3)/ L [facility] Eos % 6.1 % [facility] Eosinophils Abs 0.5(H) 0.0 - 0.4 x10(3)/ L [facility] Basophil % 0.6 % [facility] Baso Absolute 0.0 0.0 - [...] Absolute 0.04 0.00 - 0.04 x10(3)/mc L [facility] Blood specimen (specimen) 03/03/2017 7:50 AM EDT 03/03/2017 8:03 AM EDT Narrative Resulting Agency Comment Spec In Lab Malika Chen MD HEMATOLOGY ORDERABL ES [facility] [place] [address] * (ABNORMAL) Hemogram (03/03/2017 7:50 AM EDT) White Blood Cell 8.8 4.0 - 9.5 x10(3)/mc L [facility] Red Blood Cell 3.80(L) 4.00 - 5.21 x10(6)/mc L [facility] Hemoglobin 12.3 11.7 - 15.5 gm/dL [facility] Hematocrit 36.3 35.7 - 45.8 % [facility] Mean Cell Volume 95.5(H) 82.6 - 94.4 fL [facility] Mean Cell Hemoglobin 32.4(H) 27.1 - 32.0 pg [facility] Mean Cell Hemoglobin Concentration 33.9 31.7 - 35.0 gm/dL [facility] Platelet 156 145 - 357 x10(3)/ L [facility] RDW Standard Deviation 48.3(H) 37.0 - 46.0 [facility] RDW coefficient of variation 13.9 11.5 - 14.1 % [facility] Mean Platelet Volume 11.9 7.6 - 12.9 fL [facility] NRBC% auto 0.0 % [facility] NRBC Absolute 0.000 0.000 - 0.000 x10(3)/ L [facility] Blood specimen (specimen) 03/03/2017 7:50 AM EDT 03/03/2017 8:03 AM EDT Narrative Resulting Agency Comment Spec In Lab Malika Chen MD HEMATOLOGY ORDERABL ES [facility] [place] [address] * (ABNORMAL) Comprehensive metabolic panel (non-fasting) (03/03/2017 7:50 AM EDT) Glucose 139 65 - 199 mg/dL [facility] Comment:Diabetes: >=200 mg/d L plus symptoms Blood Urea Nitrogen 20(H) 8 - 18 mg/dL [facility] Creatinine 0.95 0.70 - 1.20 mg/dL [facility] Sodium 141 135 - 145 mmol/L [facility] Carbon Dioxide 26 22 - 31 mmol/L [facility] Anion Gap 14 5 - 15 mmol/L [facility] Calcium 9.3 8.5 - 10.5 mg/dL [facility] Protein, Total 6.9 6.1 - 8.0 gm/dL [facility] Albumin 4.2 3.2 - 5.2 gm/dL [facility] Aspartate Aminotransferase 17 0 - 30 unit/L [facility] Alanine Aminotransferase 16 0 - 30 unit/L [facility] Alkaline Phosphatase 75 40 - 104 unit/L [facility] Bilirubin, Total 0.5 0.2 - 1.3 mg/dL [facility] Est Glomerular Filtration Rate 58(L) >=60 [facility] Comment: The reported eGFR should be multiplied by 1.2 for patients. The MDRD is not an appropriate measure of renal function for patients with body mass extremes or in patients with acute kidney failure. http://Mingleplay.WhoAPI/DHnkdep http://Mingleplay.com/DHMCnkf Blood specimen (specimen) 03/03/2017 7:50 AM EDT 03/03/2017 8:03 AM EDT Narrative Resulting Agency Comment Spec In Lab Malika Chen [place] [address] documented in this encounter Visit Diagnoses Diagnosis Malignant neoplasm of left breast in female, estrogen receptor positive, unspecified site of breast documented in this encounter Care Teams Straight Knife Machine Cutter Relationship Specialty Start Date End Date Ana Her MD [address] [place] [address] PCP - General 07/29/13 documented as of this encounter
--- OUTSIDE RECORDS SUMMARY | 2024-05-16 11:16 | XMS_ITS | Encounter Summary ---
[place] [address] Care Team Providers Care Credit Portfolio Manager Name Role Phone Ana Her MD Primary Care Provider [phone] Encounter Details Date Type Department Care Team (Late st Contact Info) Description 03/18/2017 Telephone [place] [phone] Bryanna Marsh RN Social History Tobacco Use [...] notes she had a colonoscopy done at [facility] and developed atrial fibrillation; she has been started on blood thinners. She was just discharged from the [facility] hospital, and called us to let [...] give Digna a call her number is [phone]. The below is from Dr. Chen visit [...] on filedocumented in this encounter Care Teams Credit Portfolio Manager Relationship Specialty Start Date End Date Ana Her MD [address] [place] [address] PCP - General 07/29/13 documented as of this encounter
--- OUTSIDE RECORDS SUMMARY | 2024-05-16 11:16 | XMS_ITS | Encounter Summary ---
Author Organization Formerly [facility] Address [facility] [place] [address] Care Team Providers Care Head Refrigeration Engineer Name Role Phone Ana Her MD Primary Care Provider [phone] Reason for Visit * Reason Comments Radiation Consult * Consultation (Routine) - Closed Specialty Diagnoses / Procedures Referred By Christiano hackett Referred To Contact Radiation Oncology Diagnoses Breast cancer Malika Chen MD [facility] [place] [address] Stj Rad Onc Office [address] [place] [phone] Referral ID Status Reason Start Date Expiration Date Visits Re quested Visits Authorized [id number] Closed 03/17/2017 03/17/2018 1 1 Encounter Details Date Type Department Care Team (Late st Contact Info) Description 04/13/2017 10:00 AM EST Office Visit Radiation Oncology at [address] [address] Faye Velez MD [facility] [place] [address] Malignant neoplasm of left female breast, unspecified [...] cm from nipple. Path: Invasive mucinous ca, ER+DE+, Her2 FISH neg. 03/03/[address] [...] she is being evaluated for afib [place] [facility] [place] 04/15/17; has been wearing a ziopatch [...] DEEP AXILLARY NODE(S) (WRVU 6.43) performed by aMlika Chen MD at [facility] MAIN OR ??? PRO INTRAOP SENTINEL LYMPH ID W/DYE INJECTION Left 03/30/2017 INTRAOPERATIVE ID (MAPPING) SENTINEL LYMPH NODE,INCLUDES INJECTION (WRVU 2.5) performed by Malika Chen MD at [facility] MAIN OR ??? PRO MASTECTOMY, PARTIAL Left 03/30/2017 MASTECTOMY PARTIAL (WRVU 10.13) performed by Malika Chen MD at [facility] MAIN OR Your Medications These changes [...] A: Breast ca, L, mucinous, gr 2, ER+DE+, Her2 neg, s/p lumpectomy & SNB, pT1b [...] treated breast; cough; shortness of breath; tiredness. Late/medical terminologist side effects to breast discussed include: Treated [...] documented in this encounter Care Teams Head Refrigeration Engineer Relationship Specialty Start Date End Date Ana Her MD [address] [place] [address] PCP - General 07/29/13 documented as of this encounter
--- OUTSIDE RECORDS SUMMARY | 2024-05-16 11:16 | XMS_ITS | Encounter Summary ---
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 Procedures DXA Central Spine, Hip, and/or Whole Body (Generic) Ricky Lowry MD [facility] DR HEMATOLOGY/[place] [address] [facility] Rad Xray [address] [place] [address] [place] [address] Referral ID Status Reason Start Date Expiration Date V isits Requested Visits Authorized [id number] Closed Specialty Service Requested 05/22/2020 11/19/2021 1 1 Encounter Details Date Type Department Care Team (Late st Contact Info) Description 05/22/2020 1:15 PM EST Office Visit Hematology and Oncology at [facility] [place] [address] Ricky Lowry MD Malignant neoplasm [...] ??Excision with image-guided localization ?Lymph Node Sampling: ??[place] lymph node(s) ?Specimen Laterality: ??Left Tumor ?Histologic [...] ??DCIS not present in specimen Lymph Nodes ?[place] Lymph Nodes: [place] lymph node biopsy performed ?Number of [place] Nodes Examined: ??3 ?Number of Lymph Node(s) [...] A Fib. Cardiology at [facility]. S/P successful cardioversion May [...] BMD measurements and plots are available in [employer] under the imaging tab. Paper copies will be sent to providers without [employer] access. If you have received this report without the data sheet and do not have access to [employer], please contact Radiology [facility] at [phone] Thursday thru Thursday 8am-4pm. Thank you for letting us participate in the care of this patient. ??If you are a health care provider and have any questions regarding this report, please contact the number below. ??For patients who have questions please contact the health critical care rn that requested your imaging first. ? Electronically signed by: Nat Epperson MD, [facility] ([phone]), at 11/19/2020 1:09 PM Narrative 11/19/2020 1:09 [...] BMD measurements and plots are available in [employer] the imaging tab. Paper copies will be sent to providers without [employer] access.If you have received this report without the data sheet and do not haveaccess to [employer], please contact Radiology Human Resources Office Manager at [phone] Thursday thruFriday 8am-4pm. Thank you for letting us participate in the care of this patient. If youare a health care provider and have any questions regarding this report,please contact the number below. For patients who have questions please contactthe health critical care rn that requested your imaging first. Ricky Lowry [...] inhibitors documented in this encounter Care Teams Family Services Specialist Relationship Specialty Start Date End Date Ana Her MD [address] [place] [address] PCP - General 07/29/13 documented as of this encounter
--- OUTSIDE RECORDS SUMMARY | 2024-05-16 11:16 | XMS_ITS | Encounter Summary ---
Author Organization [facility] [place] [address] Care Team Providers Care Fig Washer Name Role Phone Ana Her MD Primary Care Provider [phone] Encounter Details Date Type Department Care Team (Latest Contact Info) Description 03/30/2017 8:30 AM [facility] Hospital [place] [address] Mailka Chen MD [facility] [address] Malignant neoplasm of upper-outer quadrant of left [...] positive documented in this encounter Care Teams Fig Washer Relationship Specialty Start Date End Date Ana Her MD [address] [place] [address] PCP - General 07/29/13 documented as of this encounter
--- OUTSIDE RECORDS SUMMARY | 2024-05-16 11:16 | XMS_ITS | Encounter Summary ---
Author Organization [facility] [place] [address] Care Team Providers Care Metal Ceiling Hanger Name Role Phone Ana Her MD Primary Care Provider [phone] Encounter Details Date Type Department Care Team (Late st Contact Info) Description 03/04/2017 Orders Only [place] [address] Malika Chen MD [facility] [address] Malignant neoplasm of upper-outer quadrant of left [...] MD IMG MAMMO ORDERABLE S * Mammo [place] Node Injection (03/30/2017 9:01 AM EST) Anatomical [...] imaging was performed. Procedural attestation: Resident: Dr. Aelena De Jesus I was present with the [...] positive documented in this encounter Care Teams Metal Ceiling Hanger Relationship Specialty Start Date End Date Ana Her MD [address] [facility] [address] [place] [address] PCP - General 07/29/13 documented as of this encounter
--- OUTSIDE RECORDS SUMMARY | 2024-05-16 11:16 | XMS_ITS | Encounter Summary ---
Author Organization [facility] [place] [address] Care Team Providers Care Paint Coating Machine Operator Name Role Phone Ana Her MD Primary Care Provider [phone] Reason for Visit * Reason Comments Follow-up Encounter Details Date Type Department Care Team (Late st Contact Info) Description 05/31/2019 11:45 AM EST Office Visit Hematology [place] [address] Ricky Lowry MD Malignant neoplasm of lower-outer [...] cancer cells with immunostaining) Stain intensity: Strong MA immunoreactivity: Positive (>90% cancer cells with immunostaining) [...] with image-guided localization ?Lymph Node Sampling: ??[place] lymph node(s) ?Specimen Laterality: ??Left Tumor ?Histologic [...] not present in specimen Lymph Nodes ?[place] Lymph Nodes: [place] lymph node biopsy performed ?Number of [place] Nodes Examined: ??3 ?Number of Lymph Node(s) [...] > [place] Fib. [place] [facility] [place] cardio[place] May 2018. DEXA scan [...] positive documented in this encounter Care Teams Paint Coating Machine Operator Relationship Specialty Start Date End Date Ana Her MD [facility] [address] [facility] [place] [address] PCP - General 07/29/13 documented as of this encounter
--- OUTSIDE RECORDS SUMMARY | 2024-05-16 11:16 | XMS_ITS | Encounter Summary ---
Author Organization [facility] [place] [address] Care Team Providers Care Hardware Sales Assistant Name Role Phone Ana Her MD Primary Care Provider [phone] Reason for Visit * Reason Comments Follow-up Encounter Details Date Type Department Care Team (Late st Contact Info) Description 10/23/2017 11:00 AM EDT Office Visit Hematology [place] [address] Mayra Page APRN [facility] [place] [address] Malignant neoplasm of lower-outer quadrant of left [...] documented in this encounter Progress Notes * Mayar Page, SUPERVISOR PHOTOSTAT - 10/23/2017 11:00 AM EDT Digna Olson [...] with image-guided localization ?Lymph Node Sampling: ??[place] lymph node(s) ?Specimen Laterality: ??Left Tumor ?Histologic [...] not present in specimen Lymph Nodes ?[place] Lymph Nodes: [place] lymph node biopsy performed ?Number of [place] Nodes Examined: ??3 ?Number of Lymph Node(s) Examined (sentinel and nonsentinel): 3 ?Lymph Node Involvement: None identified Stage (pTNM) ?Pathological Stage: ?? pT1b pN0 PMH: Past Medical History: Diagnosis Date ??? Breast cancer ??? Fracture of tibia 12/2016 left tibial plateau ??? GERD (gastroesophageal reflux disease) ??? H/O non-insulin dependent diabetes mellitus ??? Spinal stenosis Most recent DEXA scan was 10/28/[address] [facility]. There is no history of thromboembolic [...] positive documented in this encounter Care Teams Hardware Sales Assistant Relationship Specialty Start Date End Date Ana Her MD [address] [place] [address] PCP - General 07/29/13 documented as of this encounter
--- OUTSIDE RECORDS SUMMARY | 2024-05-16 11:16 | XMS_ITS | Encounter Summary ---
Author Organization [facility] [place] [address] Care Team Providers Care Mountain Guide Name Role Phone Ana Her MD Primary Care Provider [phone] Encounter Details Date Type Department Care Team (Latest Contact Info) Description 03/30/2017 8:30 AM [facility] Hospital Encounter [place] [address] Malika Chen MD [facility] [address] Malignant neoplasm of upper-outer quadrant of left [...] documented in this encounter Results * Mammo [place] Node Injection (03/30/2017 9:01 AM EST) Anatomical [...] mCi documented in this encounter Care Teams Mountain Guide Relationship Specialty Start Date End Date Ana Her MD [address] [place] [address] PCP - General 07/29/13 documented as of this encounter
--- OUTSIDE RECORDS SUMMARY | 2024-05-16 11:16 | XMS_ITS | Encounter Summary ---
[place] [address] Care Team Providers Care Flash Designer Name Role Phone Ana Her MD Primary Care Provider [phone] Encounter Details Date Type Department Care Team (Late st Contact Info) Description 03/30/2017 11:19 AM EST Anesthesia Event [place] [address] Bridgette Mclaughlin MD Collins, Sarah J, POLICE OR PATROL PARK OFFICER [address] [place] [address] Anesthesia Record Procedure Summary Procedure Name Responsible [...] 0815; median cubital vein (antecubital fossa), right; [id number] catheter system; 20 gauge, 1 in length; [...] Bridgette Mclaughlin - 03/30/2017 2:13 PM EST [facility] Department of Anesthesiology Post-procedure Note Patient: Digna Olson Procedure Summary Date Anesthesia Start Anesthesia Stop Room / Location 03/30/17 1119 1239 [facility] OR 24 / MH MAIN [...] All Anesthesia Providers: Anesthesiologist: Bridgette Mclaughlin MD POLICE [employer] OFFICER: Laura Koo CRNA Most Recent Vitals: 03/30/17 [...] risks discussed with patient. Plan discussed with POLICE OR PATROL PARK OFFICER. [facility] Staff Note documented in this encounter Plan [...] r documented in this encounter Care Teams Flash Designer Relationship Specialty Start Date End Date Ana Her MD [facility] [address] [place] [address] PCP - General 07/29/13 documented as of this encounter
--- OUTSIDE RECORDS SUMMARY | 2024-05-16 11:16 | XMS_ITS | Encounter Summary ---
[place] [address] Care Team Providers Care Cyber Security Consultant Name Role Phone Ana Her MD Primary Care Provider [phone] Reason for Visit * Reason Comments Follow-up Encounter Details Date Type Department Care Team (Late st Contact Info) Description 11/29/2019 2:45 PM EDT Office Visit Hematology [place] [phone] Ricky Lowry MD Malignant neoplasm of lower-outer [...] ??Excision with image-guided localization ?Lymph Node Sampling: ??[place] lymph node(s) ?Specimen Laterality: ??Left Tumor [...] ??DCIS not present in specimen Lymph Nodes ?[place] Lymph Nodes: [place] lymph node biopsy performed ?Number of [place] Nodes Examined: ??3 ?Number of Lymph [...] Spinal stenosis > A Fib. [place] [facility] S/P successful cardioversion May 2018. DEXA scan [...] positive documented in this encounter Care Teams Cyber Security Consultant Relationship Specialty Start Date End Date Ana Her MD [address] [place] [address] PCP - General 07/29/13 documented as of this encounter
--- OUTSIDE RECORDS SUMMARY | 2024-05-16 11:16 | XMS_ITS | Encounter Summary ---
Author Organization [facility] [place] [address] Care Team Providers Care Web Content Manager Name Role Phone Ana Her MD Primary Care Provider [phone] Encounter Details Date Type Department Care Team (Late st Contact Info) Description 03/03/2017 [place] [address] January Ward MSW Social History Tobacco Use Types Packs/Day Years Used Date Smoking Tobacco: Never Smokeless Tobacco: Never Sex and Gender Information Value Date Recorded Sex Assigned at Not on file Gender Identity Not on file Sexual Orientation Not on file documented as of this encounter Progress Notes * January Ward MSW - 03/03/2017 12:56 PM EDT OFFICE OF CARE MANAGEMENT/CONTINUING PATTERN FITTER Reason for referral: Digna Olson is a 71 year old, female who was seen in the multidisciplinarybreast care clinic for a surgical consult as she was recently diagnosed with ER/SC+, left breast, invasive mucinous carcinoma. After meeting with Dr. Chen, pt has decided to have a lumpectomy/SLNB. If pt needs radiation therapy, she will receive it at the [facility]. [facility] met with pt to complete a psychosocial assessment and to explain my role in the breast program. Pt was encouraged to contact me if she has any questions or concerns. Living arrangements/social supports: Pt lives alone in [place], [place]. She has support from her family and is accompanied to today's appt by her sisters who live in [place]. Employment/Insurance/Finances: Pt is retired and receives Social Security [employer] Benefits. Pt has Medicare A and B [...] Antonia Oliva is the SW for the [facility]. Plan: [facility] will continue to follow pt to assess and assist with their psychosocial needs. [facility]/[place] [id number] Pager #[phone] documented in this encounter Plan of Treatment Not on file documented as of this encounter Visit Diagnoses Not on filedocumented in this encounter Care Teams Web Content Manager Relationship Specialty Start Date End Date Ana Her MD [address] [place] [address] PCP - General 07/29/13 documented as of this encounter
--- OUTSIDE RECORDS SUMMARY | 2024-05-16 11:16 | XMS_ITS | Encounter Summary ---
[place] [address] Care Team Providers Care Insurance Solicitor Name Role Phone Ana Her MD Primary Care Provider [phone] Encounter Details Date Type Department Care Team (Latest Contact Info) Description 03/30/2017 7:27 AM EST - 03/30/2017 1:37 PM EST Hospital Encounter [place] [phone] Brant Chen MD [facility] [address] Discharge Disposition: Home Social History Tobacco Use [...] shower 24 hours Activity as tolerated Call [phone] with any questions Do not soak incision [...] Alma Delia had a bone scan in [place] which was read as possible metastasis in the left tibia. Of note- she fractured this area recently. She has recovered well. ?? PMH HNT NIDDM not on meds Spinal stenosis Fractured left tibial plateau December, GERD ?? FH: Maternal first cousin with breast cancer Brother with rectal cancer Sister with PE ? SH: lives alone. Has good support from sisters who live in [place]. Non smoker. Has a son who lives [...] - 03/30/2017 12:27 PM EST [facility] Operative Note Patient Name: Digna Olson : [id number] MR#: [id number] Case Date: 03/30/2017 Surgeon: Surgeon(s) and Role: [...] [place] [address]. Remaining count within the axilla was 1982. [...] MD PATHOLOGY/CYTOLOGY ORDERABLES [facility] [place] [address] * Specimen to Pathology (surgical or derm) (03/30/2017 12:08 PM EST) AP Specimen 03/30/2017 12:0 8 PM EST 03/30/2017 12:08 PM EST Narrative [facility] - 03/30/2017 12:08 PM EST Specimen requisition ordered. ??Separate Pathology report to follow Brant Chen MD PATHOLOGY/CYTOLOGY ORDERABLES Performing Organization Address [facility] [place] [address] * Specimen to Pathology (surgical or derm) (03/30/2017 12:00 PM EST) AP Specimen 03/30/2017 12:0 0 PM EST 03/30/2017 12:00 PM EST Narrative [facility] - 03/30/2017 12:00 PM EST Specimen requisition ordered. ??Separate Pathology report to follow Brant Chen MD PATHOLOGY/CYTOLOGY ORDERABLES Performing Organization Address [facility] Co de Phone Number [place] [phone] * Specimen to Pathology (surgical or derm) (03/30/2017 11:51 AM EST) AP Specimen 03/30/2017 11:5 1 AM EST 03/30/2017 11:51 AM EST Narrative [facility] - 03/30/2017 11:51 AM EST Specimen requisition ordered. ??Separate Pathology report to follow Brant Chen MD PATHOLOGY/CYTOLOGY ORDERABLES Performing Organization Address [facility] [place] [address] * Surgical Pathology Report (03/30/2017 11:50 AM EST) Final Diagnosis [id number] ? Location: [facility]; A The signing pathologist has (i) examined the relevant preparation(s) for the specimen(s) and (ii) rendered or confirmed the diagnosis(es). . ?Surgical Pathology DIAGNOSIS A,B - See Synoptic C - Left breast, Deep/lateral margin re-excision - ?Benign fatty breast tissue. D - Left breast, Superficial margin re-excision - ?Benign fatty breast tissue. See Note Note - [place] ink (indicating additional cranial margin) is also present on this superficial margin re-excision. ---- Specimen Parts: ?? A - Left axilliary sentinel node B - Left breast partial mastectomy Specimen ? Procedure: ??Excision with image-guided localization ? Lymph Node Sampling: ?? Cana lymph node(s) ? Specimen Laterality: ?? Left [...] not present in specimen Lymph Nodes ? Cana Lymph Nodes: ?? Cana lymph node biopsy performed ? Number of Cana Nodes Examined: ?3 ? Number of Lymph [...] Verified: ??04/01/2017 ?Pathologist Performed at: ??-[facility] Dept. of Pathology, [place], [place] CLINICAL INFORMATION Specimen Submitted: A - [...] and there are ??no close margins. per [facility] Radiology . Specimen Description: According to [...] 0.8 x 0.4 x 0.4 cm. Color: [place] and yellow. Consistency: Soft. Location: Slices III and IV. Nearest Margin: 0.6 cm to the cranial margin. Other Margins: 0.8 cm to the deep margin, 1.0 cm to the superficial margin, ? > 2 cm from all other margins. OTHER Parenchyma: Predominately fatty with scant fibrous tissue. Wire/Clip: Biopsy marker clip identified within slice IV. SECTIONS/PROCESSI NG: (1) inbound call center representative slice I, lateral margin; (2) slice III, lesion to cranial margin; (3-5) remainder of slice III; (6) slice IV, lesion to cranial margin (clip); (7-8) remainder of slice IV; (9) inbound call center representative slice V; (10) inbound call center representative slice X, medial margin. (R10) Ischemic [...] MD PATHOLOGY/CYTOLOGY ORDERABLES [facility] [place] [address] * Mammo Direct Digital Left (03/30/2017 9:15 [...] Routine documented in this encounter Care Teams Insurance Solicitor Relationship Specialty Start Date End Date Ana Her MD [address] [place] [address] PCP - General 07/29/13 documented as of this encounter
--- OUTSIDE RECORDS SUMMARY | 2024-05-16 11:16 | XMS_ITS | Encounter Summary ---
Author Organization [facility] [place] [address] Care Team Providers Care Puttier Name Role Phone Ana Her MD Primary Care Provider [phone] Encounter Details Date Type Department Care Team (Late st Contact Info) Description 10/23/2017 9:43 AM EDT - 10/23/2017 11:59 PM EDT Hospital [place] [phone] Hiral Padgett, WENDY History of breast cancer [...] breast documented in this encounter Care Teams Puttier Relationship Specialty Start Date End Date Ana Her MD [address] [place] [address] PCP - General 07/29/13 documented as of this encounter
--- OUTSIDE RECORDS SUMMARY | 2024-05-16 11:17 | XMS_ITS | Encounter Summary ---
Author Organization [facility] Address [address] [place] [address] Care Team Providers Care Director Hematology Name Role Phone Unknown, Provider Primary Care Provider Unava ilable Encounter Details Date Type Department Care Team (Late st Contact Info) Description 03/17/2017 Results Only [facility] [phone] Kat Lazaro MD [facility] [facility] [address] [place] [phone] Social History Tobacco Use Types Packs/Day Years [...] ? DIGNA KIMBROUGH ? Accession #: ? [id number] ? : ? 1945 (Age: 71) ??F [...] (ASCP) 03/18/2017 8:14 AM End of Report [facility] 03/17/2017 16:1 5 EST 03/17/2017 16:15 EST us Kat Lazaro MD PATHOLOGY ORDERABLES Fin al Result [facility] [address] [place] [address] documented in this encounter Visit Diagnoses Not on filedocumented in this encounter Care Teams Director Hematology Relationship Specialty Start Date End Date Unknown, Provider, PCP - General 01/13/14 documented as of this encounter
--- OUTSIDE RECORDS SUMMARY | 2024-05-16 11:17 | XMS_ITS | Encounter Summary ---
[place] [address] Care Team Providers Care Software Manager Name Role Phone Ana Her MD Primary Care Provider [phone] Encounter Details Date Type Department Care Team (Late st Contact Info) Description 02/27/2017 Telephone [place] [phone] Argentina Sanchez RN Social History Tobacco Use [...] a 71 y.o. female with newly diagnosed ER/SD+/HER2 corey pending left breast invasive mucinous cancer (left breast U/S guided biopsy 02/25/2017 at [facility]). Alma Delia sounds positive and has support. She will have someone accompany her to appointments. She appears to be coping well but is anxious to meet with a breast surgeon to determine a treatment plan. Alma Delia have a bone SPECT done 1-2 months ago at [facility] [place] and her doctor there questioned an area [...] for her review (a link to the [facility] Early Stage Breast Cancer program). [...] on filedocumented in this encounter Care Teams Software Manager Relationship Specialty Start Date End Date Ana Her MD [address] [place] [address] PCP - General 07/29/13 documented as of this encounter
--- OUTSIDE RECORDS SUMMARY | 2024-05-16 11:17 | XMS_ITS | Encounter Summary ---
Author Organization [facility] Address [facility] [address] Care Team Providers Care Manager Telemarketing Name Role Phone Unavailable Primary Care Provider Unavailabl e Encounter Details Date Type Department Care Team (Latest Contact Info) Description 04/04/2005 - 04/04/2005 11:59 PM EST Hospital Encounter Radiology Library at [facility] [place] [address] Jackie Cisneros APRN [facility] [place] [place] [address] Discharge Disposition: Home Social History Tobacco Use [...]
--- OUTSIDE RECORDS SUMMARY | 2024-05-16 11:17 | XMS_ITS | Encounter Summary ---
Author Organization [facility] Address [address] [place] [address] Care Team Providers Care Inspector Packager Name Role Phone Unavailable Primary Care Provider Unavailabl e Encounter Details Date Type Department Care Team (Latest Contact Info) Description 01/10/2014 20:50 EDT - 01/10/2014 23:59 EDT Hospital Encounter [facility] [address] [place] [address] Unknown, Provider, MD Discharge Disposition: Home or [...] Code Departure Means Destination Home or Self Intermediate documented in this encounter Plan of Treatment Not on file documented as of this encounter Visit Diagnoses Not on filedocumented in this encounter
--- OUTSIDE RECORDS SUMMARY | 2024-05-16 11:17 | XMS_ITS | Encounter Summary ---
Author Organization [facility] Address [address] [facility] [place] [address] Care Team Providers Care Lineman Name Role Phone Ana Her MD Primary Care Provider [phone] Encounter Details Date Type Department Care Team (Late st Contact Info) Description 09/13/2015 Interpretation Only Radiology [address] [place] [address] Unknown None Social History Tobacco Use Types [...] 6:56 AM EDT APD Historical Result Principal Blown Film Extrusion Operator: ??MAE ??ESCHBACH IMAGE-INTENSIFIER FILMS: INDICATION: ??Right L4 foraminotomy. FINDINGS: A total of 5.8 seconds of fluoro time was utilized by Geraldine Claros MD. ??Estimated dose is 5.96 mGy. ??Two image-intensifier films record the event. ??They show the lumbosacral junction in the lateral projection with a surgical instrument indicating the level of L4. ??No Radiologist was present for this exam. Mae Shelley DO [place]/mn [id number] Procedure Note Unknown - 11/01/2018 APD Historical Result Principal Blown Film Extrusion Operator: MAE SHELLEY IMAGE-INTENSIFIER FILMS: INDICATION: Right L4 foraminotomy. FINDINGS: A total of 5.8 seconds of fluoro time was utilized by Geraldine Claros MD. Estimated dose is 5.96 mGy. Two image-intensifier films record the event. They show thelumbosacral junction in the lateral projection with a surgical instrument indicating the level of L4.No Radiologist was present for this exam. Mae Shelley DO TOBIN/[place] [id number] Unknown IMG FLUORO ORDERABLE S documented in this encounter Visit Diagnoses Not on filedocumented in this encounter Care Teams Lineman Relationship Specialty Start Date End Date Ana Her MD [address] [place] [address] PCP - General 07/29/13 documented as of this encounter
--- OUTSIDE RECORDS SUMMARY | 2024-05-16 11:17 | XMS_ITS | Encounter Summary ---
Author Organization [facility] Address [address] [place] [address] Care Team Providers Care Chute Man Name Role Phone Unknown, Provider Primary Care Provider Unava ilable Encounter Details Date Type Department Care Team (Late st Contact Info) Description 11/19/2023 Lab Requisition [facility] Pathology & Laboratory Medicine - [facility] [address] [place], [place] [address] Outr Resulting Lab, Provider Social History Tobacco [...] 201 - 352 mg/dL 11/20/2023 9:45 EDT [facility] Blood VENOUS BLOOD / Unknown 11/19/2023 6:05 EDT 11/19/2023 17:32 EDT us Provider Outr Resulting Lab CHEMISTRY & BLOOD GA S ORDERABLES Final Result [facility] [address] [place], [place] [address] documented in this encounter Visit Diagnoses Not on filedocumented in this encounter Care Teams Chute Man Relationship Specialty Start Date End Date Unknown, Provider, PCP - General 01/13/14 documented as of this encounter
--- OUTSIDE RECORDS SUMMARY | 2024-05-16 11:17 | XMS_ITS | Encounter Summary ---
[place] [address] Care Team Providers Care Turbine Engine Assembler Name Role Phone Ana Her MD Primary Care Provider [phone] 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 * Surgical (Routine) - Closed Specialty Diagnoses / Procedures Referred By Christiano hackett Referred To Contact Orthopaedics Diagnoses Lumbar spinal stenosis Michelle Hurtado APRN [facility] [address] [facility] [place] [address] [place] [address] Referral ID Status Reason Start Date Expiration Date V isits Requested Visits Authorized [id number] Closed Consult, Test & Treat 09/08/2014 09/08/2015 3 3 Encounter Details Date Type Department Care Team (Late st Contact Info) Description 09/08/2014 Orders [place] [address] Michelle Hurtado COAL CUTTING MACHINE OPERATOR [facility] [address] Lumbar spinal stenosis Social History Tobacco Use [...] claudication documented in this encounter Care Teams Turbine Engine Assembler Relationship Specialty Start Date End Date Ana Her MD [facility] [address] [facility] [address] [place] [address] PCP - General 07/29/13 documented as of this encounter
--- OUTSIDE RECORDS SUMMARY | 2024-05-16 11:17 | XMS_ITS | Encounter Summary ---
Author Organization [facility] [place] [address] Care Team Providers Care Infertility Medical Assistant Name Role Phone Ana Her MD Primary Care Provider [phone] Encounter Details Date Type Department Care Team (Latest Contact Info) Description 02/25/2017 1:32 PM EDT - 02/25/2017 1:35 PM EDT Hospital En[place] [phone] Maryam Yee MD [facility] [place] [address] Abnormal mammogram Discharge Disposition: Home Social History [...] PM EDT 02/25/2017 3:02 PM EDT Narrative [facility] - 02/25/2017 3:02 PM EDT Specimen requisition ordered. ??Separate Pathology report to follow Enzo Burkett MD PATHOLOGY/CYTOLOGY O SHANTAL [facility] [place] [address] documented in this encounter Visit Diagnoses Diagnosis [...] mg documented in this encounter Care Teams Infertility Medical Assistant Relationship Specialty Start Date End Date Ana Her MD [address] [place] [address] PCP - General 07/29/13 documented as of this encounter
--- OUTSIDE RECORDS SUMMARY | 2024-05-16 11:17 | XMS_ITS | Encounter Summary ---
Author Organization [facility] Address [address] [place] [address] Care Team Providers Care Outpatient Therapist Name Role Phone Unknown, Provider Primary Care Provider Unava ilable Encounter Details Date Type Department Care Team (Late st Contact Info) Description 01/20/2020 Lab Requisition [facility] Pathology & Laboratory Medicine - [facility] [address] [place] [address] Outr Resulting Lab, Provider Social History Tobacco [...] rt-PCR Result NEGATIVE Negative 01/21/2020 16:[address] [facility] Comment: 2019-novel Coronavirus (2019-nCoV) [...] in accordance with CLIA regulations, College of [employer]ologists (CAP) guidelines (Jul 21, 2019), and FDA guidance (Jul 02, 2019). This test is only for use under the Food and Drug Administration's Emergency Use Authorization. Swab ENTIRE NASOPHARYNX / Unknown 01/20/2020 10:30 EDT 01/20/2020 15:35 EDT us Provider Outr Resulting Lab MICROBIOLOGY - GENER AL ORDERABLES Final Result Performing Organization Address City/State/[facility] Co de Phone Number [facility], [place] * COVID-19 TESTING (01/20/2020 10:30 EDT) COVID-19 rt-PCR Result NEGATIVE Negative 01/21/2020 17:21 EDT [facility] Comment: 2019-novel Coronavirus (2019-nCoV) not [...] in accordance with CLIA regulations, College of [employer]ologists (CAP) guidelines (Jul 21, 2019), and FDA guidance (Jul 02, 2019). This test is only for use under the Food and Drug Administration's Emergency Use Authorization. Performing Lab [facility] 01/21/2020 17:21 EDT [facility] Swab 01/20/2020 10:3 0 EDT 01/20/2020 15:35 EDT us Provider Outr Resulting Lab MICROBIOLOGY - GENER AL ORDERABLES Final Result [facility] [address] [place] [address] [facility] [place] documented in this encounter Visit Diagnoses Not on filedocumented in this encounter Care Teams Outpatient Therapist Relationship Specialty Start Date End Date Unknown, Provider, PCP - General 01/13/14 documented as of this encounter
--- OUTSIDE RECORDS SUMMARY | 2024-05-16 11:17 | XMS_ITS | Referral Summary ---
Author Organization [facility] Address [address] [place] [address] Care Team Providers Care Operations Support Manager Name Role Phone Unknown, Provider MD Primary Care Provider Unava ilable Social History Tobacco Use Types Packs/Day Years Used Date Smoking Tobacco: Never Assessed Comments Unknown Sex and Gender Information Value Date Recorded Sex Assigned at Not on file Legal Sex Female 9:32 EDT Gender Identity Not on file Sexual Orientation Not on file Plan of Treatment Not on file Care Teams Operations Support Manager Relationship Specialty Start Date End Date Unknown, Provider, PCP - General 01/13/14
--- OUTSIDE RECORDS SUMMARY | 2024-05-16 11:17 | XMS_ITS | Clinical Summary ---
Author Organization [facility] Address [address] [place] [address] Care Team Providers Care Territory Account Manager Name Role Phone Unknown, Provider MD [...] COVID-19 Vaccine (2023- season) 2024 Care Teams Territory Account Manager Relationship Specialty Start Date End Date Unknown, Provider, PCP - General 01/13/14
--- OUTSIDE RECORDS SUMMARY | 2024-05-16 11:17 | XMS_ITS | Encounter Summary ---
Author Organization [facility] Address [facility] [place] [address] Care Team Providers Care Automatic Data Processing Planner Name Role Phone Unavailable Primary Care Provider Unavailabl e Encounter Details Date Type Department Care Team (Latest Contact Info) Description 03/19/2006 - 03/19/2006 11:59 PM EST Hospital Encounter Radiology Library at [facility] [place] [address] Jackie Cisneros APRN [facility] [place] [address] [place] [address] Discharge Disposition: Home Social History Tobacco Use [...]
--- OUTSIDE RECORDS SUMMARY | 2024-05-16 11:17 | XMS_ITS | Encounter Summary ---
Author Organization [facility] [place] [address] Care Team Providers Care Second Steward Name Role Phone Ana Her MD Primary Care Provider [phone] Encounter Details Date Type Department Care Team (Latest Contact Info) Description 02/25/2017 2:59 PM EDT - 02/25/2017 11:59 PM EDT Hospital En[place] [phone] Enzo Burkett MD Abnormal finding on breast [...] associated with invasive carcinoma. Enzo Burkett MD [facility] MAMMO ORDERABLES * Surgical Pathology Report (02/25/2017 3:01 PM EDT) Final Diagnosis [id number] ? Location: 3L The signing pathologist has [...] FISH. ??Direct analysis was performed using the BioGreen Teck Kit. ??Slide adequacy and signal enumeration were [...] factor receptor 2 testing in breast cancer: [place] Society of Clinical Oncology/College of [employer] Pathologists clinical practice guideline update. J Clin Oncol. 2013 Nov . Reviewed by: Kyara Logan MD Director Payer, Molecular Pathology _ Electronically signed by: ??Epifanio Serra MD Verified: ??03/04/2017 ?Pathologist Performed at: ??-[facility] Dept. [place], [place], [place] ? Addendum ADDENDUM DISCUSSION Immunohistochemist ry Studies Specimen: Left breast, core needle biopsy (A1) ER immunoreactivity: Positive ( ??>90% cancer cells with immunostaining) Stain intensity: Strong . ADDENDUM DISCUSSION FL immunoreactivity: Positive ( ??>90% cancer cells with [...] The assays were performed according to the scientific artist ' s instructions using Anti-ER (SP1) and Anti-FL (16) antibodies. Electronically signed by: ??Epifanio Serra MD Verified: ??02/27/2017 ?Pathologist Performed at: ??-[facility] Dept. 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 of Pathology, [place], [place] DISCUSSION Studies for ER, FL, and HER2 have been ordered; results will [...] g: (T4) ??elian 03/04/2017 2:01 PM EDT [facility] BREAST STRUCTURE / Unknown 02/25/2017 3:01 PM EDT 02/25/2017 3:01 PM EDT Enzo Burkett MD PATHOLOGY/CYTOLOGY O RDERABLES [facility] [place] [address] documented in this encounter Visit Diagnoses Diagnosis Abnormal finding on breast imaging Other (abnormal) findings on radiological examination of breast documented in this encounter Care Teams Second Steward Relationship Specialty Start Date End Date Ana Her MD [address] [place] [address] PCP - General 07/29/13 documented as of this encounter
--- OUTSIDE RECORDS SUMMARY | 2024-05-16 11:17 | XMS_ITS | Encounter Summary ---
Author Organization [facility] Address [address] [place] [address] Care Team Providers Care Platen Drier Operator Name Role Phone Unknown, Provider MD Primary Care Provider Unava ilable Encounter Details Date Type Department Care Team (Late st Contact Info) Description 04/06/2022 Lab Requisition [facility] Pathology & Laboratory Medicine - [facility] [address] [place] [address] Outr Resulting Lab, Provider Social History Tobacco [...] Salmonella PCR Negative Negative 04/06/2022 22:54 EST [facility] Shigella/Enteroin vasive E. coli Negative Negative 04/06/2022 22:54 EST [facility] HN LAB CAMPYLOBACTER PCR Negative Negative 04/06/2022 22:54 EST [facility] Shiga Toxin PCR Negative Negative 22:54 EST [facility] Feces SPECIMEN FROM RECTUM / Unknown 04/05/2022 10:41 EST 04/06/2022 18:31 EST us Provider Outr Resulting Lab MICROBIOLOGY - GENER AL ORDERABLES Final Result [facility] [address] [place] [address] documented in this encounter Visit Diagnoses Not on filedocumented in this encounter Care Teams Platen Drier Operator Relationship Specialty Start Date End Date Unknown, Provider, PCP - General 01/13/14 documented as of this encounter
--- OUTSIDE RECORDS SUMMARY | 2024-05-16 11:17 | XMS_ITS | Encounter Summary ---
[place] [address] Care Team Providers Care Light Air Defense Artillery Crewmember Name Role Phone Ana Her MD Primary Care Provider [phone] Reason for Visit * Reason Onset Date Comments Referral 07/29/2013 Encounter Details Date Type Department Care Team (Late st Contact Info) Description 07/29/2013 [place] [phone] Sophia Palacios Referral Social History Tobacco Use [...] on filedocumented in this encounter Care Teams Light Air Defense Artillery Crewmember Relationship Specialty Start Date End Date Ana Her MD [address] [facility] [address] [place] [address] PCP - General 07/29/13 documented as of this encounter
--- OUTSIDE RECORDS SUMMARY | 2024-05-16 11:17 | XMS_ITS | Encounter Summary ---
Author Organization [facility] Address [address] [place] [address] Care Team Providers Care Invasive Physician Name Role Phone Unknown, Provider MD Primary Care Provider Unava ilable Encounter Details Date Type Department Care Team (Late st Contact Info) Description 10/26/2022 Lab Requisition [facility] Pathology & Laboratory Medicine - [facility] [address] [place] [address] Outr Resulting Lab, Provider Social History Tobacco [...] and Giardia Antigen Neg 13:48 EDT [facility] Feces SPECIMEN FROM RECTUM / Unknown 10/25/2022 15:00 EDT 10/26/2022 15:25 EDT us Provider Outr Resulting Lab MICROBIOLOGY - GENER AL ORDERABLES Final Result [facility] [address] [place] [address] * FECAL BACTERIAL PATHOGENS BY PCR (10/25/2022 15:00 EDT) Salmonella PCR Negative Negative 10/26/2022 19:17 EDT [facility] Shigella/Enteroin vasive E. coli Negative Negative 10/26/2022 19:17 EDT [facility] HN LAB CAMPYLOBACTER PCR Negative Negative 10/26/2022 19:17 EDT [facility] Shiga Toxin PCR Negative Negative 19:17 EDT [facility] Feces SPECIMEN FROM RECTUM / Unknown 10/25/2022 15:00 EDT 10/26/2022 15:25 EDT us Provider Outr Resulting Lab MICROBIOLOGY - GENER AL ORDERABLES Final Result Performing Organization Address [facility] Co de Phone Number [facility] [address] [place] [address] * OVA/PARASITE EXAM (10/25/2022 15:00 EDT) Parasite No ova and parasites seen. 10/28/2022 15:08 EDT [facility] Feces SPECIMEN FROM RECTUM / Unknown 10/25/2022 15:00 EDT 10/26/2022 15:25 EDT Narrative [facility] - 10/28/2022 15:08 EDT (If Cryptosporidium, Cyclospora, or Microsporidium are suspected, specific tests must be requested.) Single negative specimen does not rule out the possibility of a parasitic infection. us Provider Outr Resulting Lab MICROBIOLOGY - GENER AL ORDERABLES Final Result Performing Organization Address City/[facility]/ZIP Co de Phone Number [facility] [address] [place] [address] documented in this encounter Visit Diagnoses Not on filedocumented in this encounter Care Teams Invasive Physician Relationship Specialty Start Date End Date Unknown, Provider, PCP - General 9/12/14 documented as of this encounter
--- OUTSIDE RECORDS SUMMARY | 2024-05-16 11:17 | XMS_ITS | Encounter Summary ---
Author Organization [facility] [place] [address] Care Team Providers Care Specialty Therapist Name Role Phone Ana Her MD Primary Care Provider [phone] Encounter Details Date Type Department Care Team (Late st Contact Info) Description 08/16/2014 Orders Only Functional [facility] Program at [facility] [address] [place] [address] Khari Martínez MD Social History Tobacco Use [...] on filedocumented in this encounter Care Teams Specialty Therapist Relationship Specialty Start Date End Date Ana eHr MD [facility] [address] [facility] [address] [place] [address] PCP - General 07/29/13 documented as of this encounter
--- OUTSIDE RECORDS SUMMARY | 2024-05-16 11:17 | XMS_ITS | Encounter Summary ---
Author Organization [facility] Address [facility] [place] [address] Care Team Providers Care It Software Engineer Name Role Phone Unavailable Primary Care Provider Unavailabl e Encounter Details Date Type Department Care Team (Latest Contact Info) Description 12/08/2008 - 12/08/2008 11:59 PM EDT Hospital Encounter Radiology Library at [facility] [place] [address] Jackie Cisneros APRN [facility] [place] [address] [place] [address] Discharge Disposition: Home Social History Tobacco Use [...] Only Mammo (12/08/2008 12:00 AM EDT) Narrative [facility] - 02/23/2017 3:30 PM EDT This exam is for storage only and is auto-finalizing. Jackie Cisneros APRN IMG FILM LIBRARY ORD ERABLES NADINE Sethi documented in this encounter Visit Diagnoses Not on filedocumented in this encounter
--- OUTSIDE RECORDS SUMMARY | 2024-05-16 11:17 | XMS_ITS | Encounter Summary ---
Author Organization [facility] Address [facility] [address] Care Team Providers Care Reinstatement Clerk Name Role Phone Ana Her MD Primary Care Provider [phone] Encounter Details Date Type Department Care Team (Latest Contact Info) Description 02/17/2017 - 02/17/2017 12:14 AM EDT Hospital Encounter Radiology Library at [facility] [place] [address] Maryam Yee MD [facility] [place] [address] Screening breast examination Discharge Disposition: Home Social [...] Only Mammo (02/17/2017 12:00 AM EDT) Narrative [facility] - 02/19/2017 1:59 PM EDT This exam is for storage only and is auto-finalizing. Maryam Yee MD IMG FILM LIBRARY O RDERABLES Performing Organization Address City/State/[facility] Co de Phone Number [place], [place] documented in this encounter Visit Diagnoses Diagnosis Screening breast examination Other screening breast examination documented in this encounter Care Teams Reinstatement Clerk Relationship Specialty Start Date End Date Ana Her MD [address] [place] [address] PCP - General 07/29/13 documented as of this encounter
--- OUTSIDE RECORDS SUMMARY | 2024-05-16 11:17 | XMS_ITS | Encounter Summary ---
[place] [address] Care Team Providers Care Joist Setter Name Role Phone Ana Her MD Primary Care Provider [phone] Reason for Visit * Reason Comments Establish Care * Consultation (Routine) - Specialty Diagnoses / Procedures Referred By Christiano hackett Referred To Contact Hematology and Oncology Diagnoses Other abnormal and inconclusive findings on diagnostic imaging of breast abnormal mammo, left breast Jackie Cisneros, WENDY [address] [place] [address] [facility] [address] [place] [address] Referral ID Status Reason Start Date Expiration Date V isits Requested Visits Authorized [id number] Consult, Test & Treat Connection Center 02/17/2017 05/20/2017 6 6 Encounter Details Date Type Department Care Team (Late st Contact Info) Description 03/03/2017 9:00 AM EDT Office [place] [address] Malika Chen MD [facility] [address] Argentina Sanchez, RN Malignant neoplasm [...] she will meet with medical and radiation ([facility]) oncologists after surgery. 4. Contact phone number for questions or concerns in the immediate post- operative period. 5. Comprehensive Breast Program Binder. 6. Post Breast Surgery Exercises handout created by physical therapists at [facility]. 7. Breast Cancer Treatment Process care map provided and reviewed. 8. Things to Consider...What I Wish I Knew advice from breast cancer patients handout provided. She verbalized understanding of the plan of care and states all her questions were answered. Twentyminutes was spent in education and providing support. Alma Delia has our contact information. She will call the certified surgical technician to schedule surgery after she has her colonoscopy date (plans to do this before breast surgery). Pre-op MRI: No * Mailka Chen MD - 03/03/2017 9:00 AM EDT [...] was obtained which revealed IDC which is ER/VT+, her2-. She has no known breast masses, no adenopathy, no nipple discharge. Alma Delia had a bone scan in [place] which was read as possible metastasis in the left tibia. Of note- she fractured this area recently. She has recovered well. PMH HNT NIDDM not on meds Spinal stenosis Fractured left tibial plateau December, GERD FH: Maternal first cousin with breast cancer Brother with rectal cancer Sister with PE SH: lives alone. Has good support from sisters who live in [place]. Non smoker. Has a son who lives [...] 71 yo female with radiographic stage I ER/VT+, HER2- IDC of the left breast. No [...] positive documented in this encounter Care Teams Joist Setter Relationship Specialty Start Date End Date Ana Her MD [address] [place] [address] PCP - General 07/29/13 documented as of this encounter
--- OUTSIDE RECORDS SUMMARY | 2024-05-16 11:17 | XMS_ITS | Encounter Summary ---
Author Organization [facility] [address] Care Team Providers Care Boiler Operators Supervisor Name Role Phone Ana Her MD Primary Care Provider [phone] Encounter Details Date Type Department Care Team (Latest Contact Info) Description 02/25/2017 1:36 PM EDT - 02/25/2017 2:58 PM EDT Hospital [place] [phone] Maryam Yee MD [facility] [place] [address] Abnormal mammogram Discharge Disposition: Home Social History [...] unspecified documented in this encounter Care Teams Boiler Operators Supervisor Relationship Specialty Start Date End Date Ana Her MD [address] [place] [address] [address] [place] [address] PCP - General 07/29/13 documented as of this encounter
--- OUTSIDE RECORDS SUMMARY | 2024-05-16 11:17 | XMS_ITS | Encounter Summary ---
Author Organization [facility] [place] [address] Care Team Providers Care Bag Bundler Name Role Phone Ana Her MD Primary Care Provider [phone] Encounter Details Date Type Department Care Team (Late st Contact Info) Description 02/27/2017 Orders [place] [address] Malika Chen MD [facility] [place] [address] Malignant neoplasm of left breast in female, [...] LABORATORY Est Glomerular Filtration Rate 58(L) >=60 [facility] Comment: The reported eGFR should be multiplied by 1.2 for patients. The MDRD is not an appropriate measure of renal function for patients with body mass extremes or in patients with acute kidney failure. http://Room Choice.Aggregate Knowledge/DHnkdep http://Room Choice.Aggregate Knowledge/DHMCnkf Blood specimen (specimen) 03/03/2017 7:50 AM EDT 03/03/2017 8:03 AM EDT Narrative Resulting Agency Comment Spec In Lab Malika Chen MD CHEMISTRY ORDERABLE S [facility] [place] [address] documented in this encounter Visit Diagnoses Diagnosis Malignant neoplasm of left breast in female, estrogen receptor positive, unspecified site of breast documented in this encounter Care Teams Bag Bundler Relationship Specialty Start Date End Date Ana Her MD [address] [facility] 1 [place] [address] PCP - General 07/29/13 documented as of this encounter
--- OUTSIDE RECORDS SUMMARY | 2024-05-16 11:17 | XMS_ITS | Encounter Summary ---
Author Organization [facility] [place] [address] Care Team Providers Care Metal Machine Operator Name Role Phone Ana Her MD Primary Care Provider [phone] Encounter Details Date Type Department Care Team (Latest Contact Info) Description 02/17/2017 12:15 AM EDT - 02/17/2017 11:59 PM EDT Hospital Encounter Radiology Library at [facility] [place] [address] Maryam Yee MD [facility] [place] [address] Screening breast examination Discharge Disposition: Home Social [...] Yee MD IMG FILM LIBRARY O RDERABLES [place], [place] documented in this encounter Visit Diagnoses Diagnosis Screening breast examination Other screening breast examination documented in this encounter Care Teams Metal Machine Operator Relationship Specialty Start Date End Date Ana Her MD [address] [place] [address] PCP - General 07/29/13 documented as of this encounter
--- OUTSIDE RECORDS SUMMARY | 2024-05-16 11:17 | XMS_ITS | Encounter Summary ---
[place] [address] Care Team Providers Care Steel Grinder Name Role Phone Ana Her MD Primary Care Provider [phone] Reason for Visit * Reason Comments Low Back Pain Bilateral Hip Pain when standing or wal jaquelin Encounter Details Date Type Department Care Team (Late st Contact Info) Description 09/12/2014 11:20 AM EDT Office Visit [place] [phone] Kirs Benoit MD Neurogenic claudication due to lumbar [...] pain free. Lumbar MRI from 08/16/2014 from [facility] is notable for multilevel degenerative changes L2-L3, L3-L4, L4-L5, L5-S1. At L2-L3, she has iblavlqj-up-jrrmgc spinal stenosis, but she has no leg [...] claudication documented in this encounter Care Teams Steel Grinder Relationship Specialty Start Date End Date Ana Her MD [address] [place] [address] PCP - General 07/29/13 documented as of this encounter
--- OUTSIDE RECORDS SUMMARY | 2024-05-16 11:17 | XMS_ITS | Encounter Summary ---
Author Organization [facility] Address [facility] [place] [address] Care Team Providers Care Stencil Sprayer Name Role Phone Unavailable Primary Care Provider Unavailabl e Encounter Details Date Type Department Care Team (Latest Contact Info) Description 12/25/2010 - 12/25/2010 11:59 PM EDT Hospital Encounter Radiology Library at [facility] [place] [address] Jackie Cisneros APRN [facility] [place] [place] [address] Discharge Disposition: Home Social History Tobacco Use [...] Only Mammo (12/25/2010 12:00 AM EDT) Narrative [facility] - 02/23/2017 3:27 PM EDT This exam is for storage only and is auto-finalizing. Jackie Cisneros APRN IMG FILM LIBRARY ORD ERABLES NADINE Sethi documented in this encounter Visit Diagnoses Not on filedocumented in this encounter
--- OUTSIDE RECORDS SUMMARY | 2024-05-16 11:17 | XMS_ITS | Encounter Summary ---
[place] [address] Care Team Providers Care Agricultural Plow Operator Name Role Phone Ana Her MD Primary Care Provider [phone] Reason for Visit * Reason Comments Low Back Pain Encounter Details Date Type Department Care Team (Late st Contact Info) Description 08/30/2014 8:35 AM EDT Office [place] [phone] Michelle Hurtado APRN [facility] [address] Neurogenic claudication due to lumbar spinal stenosis [...] this encounter Progress Notes * Michelle Hurtado, AIRCRAFT SHIPPING CHECKER - 08/30/2014 9:37 AM EDT CHIEF [...] activity. 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 MEDICATIONS & [...] care of this patient. Michelle Hurtado MS, AIRCRAFT SHIPPING CHECKER, PROFESSOR OF ENVIRONMENTAL STUDIES-[facility] documented in this encounter Plan of Treatment Not on file documented as of this encounter Visit Diagnoses Diagnosis Neurogenic claudication due to lumbar spinal stenosis Spinal stenosis, lumbar region, with neurogenic claudication documented in this encounter Care Teams Agricultural Plow Operator Relationship Specialty Start Date End Date Ana Her MD [address] [place] [address] PCP - General 07/29/13 documented as of this encounter
--- OUTSIDE RECORDS SUMMARY | 2024-05-16 11:17 | XMS_ITS | Encounter Summary ---
Author Organization [facility] Address [facility] [place] [address] Care Team Providers Care Mulling Machine Operator Name Role Phone Ana Her MD Primary Care Provider [phone] Encounter Details Date Type Department Care Team (Latest Contact Info) Description 10/28/2016 - 10/28/2016 11:59 PM EDT Hospital Encounter Radiology Library at [facility] [place] [address] Ricky Lowry MD Discharge Disposition: Home Social [...] Images (10/28/2016 12:00 AM EDT) Narrative [facility] - 04/24/2017 2:13 PM EST This exam is for storage only and is auto-finalizing. Ricky Lowry MD IMG FILM LIBRARY ORD ERABLES Performing Organization Address City/State/[facility] Co de Phone Number [place], [place] documented in this encounter Visit Diagnoses Not on filedocumented in this encounter Care Teams Mulling Machine Operator Relationship Specialty Start Date End Date Ana Her MD [address] [place] [address] PCP - General 07/29/13 documented as of this encounter
--- OUTSIDE RECORDS SUMMARY | 2024-05-16 11:17 | XMS_ITS | Encounter Summary ---
Author Organization [facility] [place] [address] Care Team Providers Care General Neurologist Name Role Phone Ana Her MD Primary Care Provider [phone] Encounter Details Date Type Department Care Team (Latest Contact Info) Description 02/25/2017 1:31 PM EDT Hospital En[place] [address] Maryam Yee MD [facility] [place] [place] [address] Abnormal mammogram Discharge Disposition: Home Social History [...] unspecified documented in this encounter Care Teams General Neurologist Relationship Specialty Start Date End Date Ana Hre MD [address] [place] [address] PCP - General 07/29/13 documented as of this encounter
--- OUTSIDE RECORDS SUMMARY | 2024-05-16 11:17 | XMS_ITS | Encounter Summary ---
Author Organization [facility] Address [facility] [place] [address] Care Team Providers Care Fluid Dynamicist Name Role Phone Unavailable Primary Care Provider Unavailabl e Encounter Details Date Type Department Care Team (Latest Contact Info) Description 12/19/2009 - 12/19/2009 11:59 PM EDT Hospital Encounter Radiology Library at [facility] [place] [address] Jackie Cisneros APRN [facility] [place] [address] [place] [address] Discharge Disposition: Home Social History Tobacco Use [...] Only Mammo (12/19/2009 12:00 AM EDT) Narrative [facility] - 02/23/2017 3:29 PM EDT This exam is for storage only and is auto-finalizing. Jackie Cisneros APRN IMG FILM LIBRARY ORD ERABLES NADINE Sethi documented in this encounter Visit Diagnoses Not on filedocumented in this encounter
--- OUTSIDE RECORDS SUMMARY | 2024-05-16 11:17 | XMS_ITS | Encounter Summary ---
Author Organization [facility] Address [facility] [place] [address] Care Team Providers Care Manager Merchandising Name Role Phone Unavailable Primary Care Provider Unavailabl e Encounter Details Date Type Department Care Team (Latest Contact Info) Description 01/29/2013 - 01/29/2013 11:59 PM EDT Hospital Encounter Radiology Library [place] [address] Jackie Cisenros APRN [facility] [place] [place] [address] Discharge Disposition: Home Social History Tobacco Use [...] Only Mammo (01/29/2013 12:00 AM EDT) Narrative [facility] - 02/23/2017 3:26 PM EDT This exam is for storage only and is auto-finalizing. Jackie Cisneros APRN IMG FILM LIBRARY ORD ERABLES NADINE Sethi documented in this encounter Visit Diagnoses Not on filedocumented in this encounter
--- OUTSIDE RECORDS SUMMARY | 2024-05-16 11:17 | XMS_ITS | Encounter Summary ---
Author Organization Health system Address [address] [place] [address] Care Team Providers Care Exam Proctor Name Role Phone Unknown, Provider Primary Care Provider Unava ilable Encounter Details Date Type Department Care Team (Late st Contact Info) Description 08/12/2021 Lab Requisition [facility] Pathology & Laboratory Medicine - [facility] [address] [place] [address] Outr Resulting Lab, Provider Social History Tobacco [...] Priority Date/Time Associated Diagnosis Comments ZZCOVID-19 TEST [facility] PCR Today 08/12/2021 15:00 EDT COVID-19 TESTING Routine 08/12/2021 15:0 0 EDT documented in this encounter Results * COVID-19 TEST [facility] PCR (08/12/2021 15:00 EDT) Swab 08/12/2021 15:0 0 EDT 08/13/2021 16:56 EDT us Provider Outr Resulting Lab MICROBIOLOGY - GENER AL ORDERABLES Final Result [facility] [address] [place] [address] * COVID-19 TESTING (08/12/2021 15:00 EDT) COVID-19 rt-PCR Result Negative Negative 08/14/2021 11:53 EDT [facility] Comment: This test has [...] was performed using the palomo SARS-CoV-2 assay ([employer] on the Palomo 6800 System Performing Lab [employer] 6800 [facility] 08/14/2021 11:53 EDT [facility] Swab 08/12/2021 15:0 0 EDT 08/13/2021 16:56 EDT us Provider Outr Resulting Lab MICROBIOLOGY - GENER AL ORDERABLES Final Result [facility] [address] [place] [address] documented in this encounter Visit Diagnoses Not on filedocumented in this encounter Care Teams Exam Proctor Relationship Specialty Start Date End Date Unknown, Provider, PCP - General 01/13/14 documented as of this encounter
--- OUTSIDE RECORDS SUMMARY | 2024-05-16 11:17 | XMS_ITS | Encounter Summary ---
[place] [address] Care Team Providers Care District Sales Leader Name Role Phone Ana Her MD Primary Care Provider Encounter Details Date Type Department Care Team (Late st Contact Info) Description 07/26/2013 [place] [address] Ana Her MD [facility] [address] [place] [address] Social History Tobacco Use Types Packs/Day Years [...] is a Non-reportable exam Ana Her MD [facility] FILM LIBRARY ORD ERABLES documented in this encounter Visit Diagnoses Not on filedocumented in this encounter Care Teams District Sales Leader Relationship Specialty Start Date End Date Ana Her MD [address] [place] [address] PCP - General 07/29/13 documented as of this encounter
--- OUTSIDE RECORDS SUMMARY | 2024-05-16 11:17 | XMS_ITS | Encounter Summary ---
Author Organization [facility] Address [facility] [place] [address] Care Team Providers Care Care Process Manager Name Role Phone Ana Her MD Primary Care Provider [phone] Encounter Details Date Type Department Care Team (Latest Contact Info) Description 02/12/2017 - 02/12/2017 11:59 PM EDT Hospital Encounter Radiology Library at [facility] [place] [address] Maryam Yee MD [facility] [place] [place] [address] Screening breast examination Discharge Disposition: Home Social [...] EDT) Narrative [facility] - 02/19/2017 1:47 PM EDT This exam is for storage only and is auto-finalizing. Maryam Yee MD IMG FILM LIBRARY O RDERABLES Performing Organization Address City/State/[facility] Co de Phone Number [place], [place] documented in this encounter Visit Diagnoses Diagnosis Screening breast examination Other screening breast examination documented in this encounter Care Teams Care Process Manager Relationship Specialty Start Date End Date Ana Her MD [address] [place] [address] PCP - General 07/29/13 documented as of this encounter
--- OUTSIDE RECORDS SUMMARY | 2024-05-16 11:17 | XMS_ITS | Patient Health Record ---
Author Organization [facility] Address [address] [place] [address] Care Team Providers Care Strategy Specialist Name Role Phone Non Compass, Provider Primary Care Provider [phone] Reason For Referral No Information Medications Medication [...] Medicare [address] [place] [id number] Digna Olson Self - patient is the insured [facility] Medicare Plan [address] [place], [place] [id number] Digna Olson Self - patient is the insured Medical (General) History Medical History History ICD Code Atrial fibrillation Hypertension Hypothyroidism Non insulin-dependent diabetes
--- OUTSIDE RECORDS SUMMARY | 2024-05-16 11:17 | XMS_ITS | Encounter Summary ---
Author Organization [facility] Address [place] [address] Care Team Providers Care Firefighter Type One Name Role Phone Unavailable Primary Care Provider Unavailabl e Encounter Details Date Type Department Care Team (Latest Contact Info) Description 11/12/2007 - 11/12/2007 11:59 PM EDT Hospital Encounter Radiology Library at [facility] [place] [address] Jackie Cisneros APRN [facility] [place] [address] [place] [address] Discharge Disposition: Home Social History Tobacco Use [...] Mammo (11/12/2007 12:00 AM EDT) Narrative [facility] - 02/23/2017 3:31 PM EDT This exam is for storage only and is auto-finalizing. Jackie Cisneros APRN IMG FILM LIBRARY ORD ERABLES NADINE Sethi documented in this encounter Visit Diagnoses Not on filedocumented in this encounter
--- OUTSIDE RECORDS SUMMARY | 2024-05-16 11:17 | XMS_ITS | Encounter Summary ---
Author Organization [facility] Address [facility] [place] [address] Care Team Providers Care Customs Compliance Manager Name Role Phone Ana Her MD Primary Care Provider [phone] Encounter Details Date Type Department Care Team (Latest Contact Info) Description 02/23/2017 3:50 PM EDT - 02/23/2017 11:59 PM EDT Hospital Encounter Radiology Library at [facility] [place] [phone] Jackie Cisneros APRN [address] [place] [address] Left breast mass Discharge Disposition: Home Social [...] recommended. Please note: The interpretation of the [facility] Breast Imaging Radiologist subspecialist may differ from the original radiologists interpretation. This is usually not due to a deficiency of the original interpreting radiologist, rather due to the greater skill level afforded by sub-specialization in the field and/or reasonable variations in interpretations. If you have a concern regarding the D-H interpretation you may contact the [facility] at . I have personally reviewed [...] recommended. Please note: The interpretation of the [facility] BreastImaging Radiologist subspecialist may differ from the original radiologists interpretation. This is usually not due to a deficiency of the original interpreting radiologist, rather due to the greater skill level affordedby sub-specialization in the field and/or reasonable variations ininterpretations. If you have a concern regarding the D-H interpretation you may [facility] at . I have personally reviewed the image(s) and the residents interpretationand agree with the findings, ROBERT THOMPSON at 02/24/2017 8:41 AM 8:41 AM Jackie Cisneros WENDY IMG OUTSIDE INTERPRE TATION ORDERABLES documented in this encounter Visit Diagnoses Diagnosis Left breast mass Lump or mass in breast documented in this encounter Care Teams Customs Compliance Manager Relationship Specialty Start Date End Date Ana Her MD [address] [place] [address] PCP - General 07/29/13 documented as of this encounter
--- OUTSIDE RECORDS SUMMARY | 2024-05-16 11:17 | XMS_ITS | Encounter Summary ---
Author Organization [facility] Address [facility] [place] [address] Care Team Providers Care Surgical Appliance Fitter Name Role Phone Ana Her MD Primary Care Provider [phone] Encounter Details Date Type Department Care Team (Latest Contact Info) Description 04/24/2014 - 04/24/2014 11:59 PM EST Hospital Encounter Radiology Library at [facility] [place] [address] Maryam Yee MD [facility] [place] [address] Screening breast examination Discharge Disposition: Home Social [...] Only Mammo (04/24/2014 12:00 AM EST) Narrative [facility] - 02/19/2017 1:46 PM EDT This exam is for storage only and is auto-finalizing. Mrayam Yee MD IMG FILM LIBRARY O RDERABLES [place], [place] documented in this encounter Visit Diagnoses Diagnosis Screening breast examination Other screening breast examination documented in this encounter Care Teams Surgical Appliance Fitter Relationship Specialty Start Date End Date Ana Her MD [address] [facility] 1 [place] [address] PCP - General 07/29/13 documented as of this encounter
--- OUTSIDE RECORDS SUMMARY | 2024-05-18 10:29 | XMS_ITS | Encounter Summary ---
Author Organization [facility] [place] [address] Care Team Providers Care Post Manager Name Role Phone Ana Her MD Primary Care Provider [phone] Encounter Details Date Type Department Care Team (Late st Contact Info) Description 03/10/2022 1:35 AM EST Ancillary Procedure Radiology Library at [facility] [place] [address] Ana Her MD [address] [place] [address] [facility] [address] [place], [place] [id number] Social History Tobacco Use Types Packs/Day Years [...] CT Chest (03/10/2022 1:31 AM EST) Narrative [facility] - 03/10/2022 1:31 AM EST This exam is auto-finalizing. It's purpose is for storage only. Ana Her MD IM FILM LIBRARY ORD ERABLES [place], [place] documented in this encounter Visit Diagnoses Not on filedocumented in this encounter Care Teams Post Manager Relationship Specialty Start Date End Date Ana Her MD [facility] [address] [facility] [address] [place] [address] PCP - General 07/29/13 documented as of this encounter
--- OUTSIDE RECORDS SUMMARY | 2024-05-18 10:29 | XMS_ITS | Encounter Summary ---
[place] [address] Care Team Providers Care Software Asset Management Analyst Name Role Phone Ana Her MD Primary Care Provider [phone] Encounter Details Date Type Department Care Team (Late st Contact Info) Description 02/03/2023 Telephone [place]ology [place] [phone] Maryam Barrett Social History Tobacco Use Types [...] filedocumented in this encounter Care Teams Software Asset Management Analyst Relationship Specialty Start Date End Date Ana Her MD [address] [place] [address] PCP - General 07/29/13 documented as of this encounter
--- OUTSIDE RECORDS SUMMARY | 2024-05-18 10:29 | XMS_ITS | Encounter Summary ---
Author Organization [facility] [place] [address] Care Team Providers Care Production Estimator Name Role Phone Ana Her MD Primary Care Provider [phone] Encounter Details Date Type Department Care Team (Late st Contact Info) Description 03/09/2022 11:00 PM EST Ancillary Procedure Radiology Library at [place] [address] Ana Her MD [address] [place] [address] [facility] 1 [place], [place] [id number] Social History Tobacco Use Types Packs/Day Years [...] Chest (03/09/2022 10:56 PM EST) Narrative [facility] - 03/09/2022 10:56 PM EST This exam is auto-finalizing. It's purpose is for storage only. Ana Her MD IM FILM LIBRARY ORD ERABLES [place], [place] documented in this encounter Visit Diagnoses Not on filedocumented in this encounter Care Teams Production Estimator Relationship Specialty Start Date End Date Ana Her MD [address] [facility] 1 [place] [address] PCP - General 07/29/13 documented as of this encounter
--- OUTSIDE RECORDS SUMMARY | 2024-05-18 10:29 | XMS_ITS | Data Portability ---
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 Orthopedic Surgeon [facility] Sleep Medicine [facility] Technician Helper Instrument Assessment Encounter Date Assessment Date Assessment LastModified by Organization Details LastModified Time 10/14/2023 10/14/2023 Patient presents for pre-op evaluation. The patient is a suitable candidate for the planned procedure. Their chronic medical problems are optimized Further preoperative evaluation is not needed. BMP and CBC are drawn today. The total time devoted to today's encounter, including both the amfh-lu-lgox time with the patient and/or family/caregive r and qjd-xmgg-cx-fac e time I personally spent is 30 minutes. Not available 10/14/2023 11:57:30 12/02/2023 12/02/2023 The total time devoted to today's encounter, including both the yvih-ct-cmrp time with the patient and/or family/caregive r and fyv-owlh-df-fac e time I personally spent is 35 minutes. Not available 12/02/2023 14:47:23 03/04/2024 03/04/2024 The total time devoted to today's encounter, including both the kgje-jb-qebw time with the patient and/or family/caregive r and bhz-hvul-lm-fac e time I personally spent is 44 minutes. Not available 03/04/2024 17:47:18 Plan of Treatment Reminders Order Date Submit Date Provider Last Modified By Organization Details Last Modified Time Details Appointments Follow Up 2024 01:20P Allan Her Not available Not available Not available Lab CBC 2023 024 [facility] (Registration ), [address] [place] [address] [place], [address], 10/14/2023 15:11:07 BMP, serum or plasma 2023 024 [facility] (Registration ), [address] [place] [address] [place], [address], 10/14/2023 17:41:37 BMP, serum or plasma 2023 024 [facility] (Registration ), [address] [place] [address] [place], [address], 12/30/2023 08:56:49 magnesium , serum or plasma [address] [facility] (Registration ), [address] [place] [address] [place], [address], 12/09/2023 07:38:05 BNP (B-type natriuret ic peptide), serum or plasma 2023 024 [facility] (Registration ), [address] [place] [address] [place], [address], 12/03/2023 20:48:47 CBC 2023 024 [facility] (Registration ), [address] [place] [address] [place], [address], 12/02/2023 16:35:23 BMP, serum or plasma 2023 024 [facility] (Registration ), [address] [place] [address] [place], [address], 04/19/2024 11:42:49 vitamin D, 25-hydrox y, total, serum 2023 024 [facility] (Registration ), [address] [place] [address] [place], [address], 04/18/2024 16:09:19 HbA1c (hemoglob in A1c), blood 2023 [facility] (Registration ), [address] [place] [address] [place], [address], 04/19/2024 11:39:49 TSH, serum, reflex free T4 2023 [facility] (Registration ), [address] [place] [address] [place], [address], 04/19/2024 11:40:25 CBC 2023 [facility] (Registration ), [address] [place] [address] [place], [address], 04/18/2024 15:08:25 ferritin, serum or plasma 2023 [facility] (Registration ), [address] [place] [address] [place], [address], 04/19/2024 11:41:22 iron + total iron-bind ing capacity (TIBC), serum 2023 [facility] (Registration ), [address] [place] [address] [place], [address], 04/19/2024 11:43:17 BMP, serum or plasma 2023 024 [facility] (Registration ), [address] [place] [address] [place], [address], 04/19/2024 11:42:49 vitamin D, 25-hydrox y, total, serum 2023 [facility] (Registration ), [address] [place] [address] [place], [address], 04/18/2024 16:09:19 HbA1c (hemoglob in A1c), blood 2023 024 [facility] (Registration ), [address] [place] [address] [place], [address], 04/19/2024 11:39:49 TSH, serum, reflex free T4 2023 024 [facility] (Registration ), [address] [place] [address] [place], [address], 04/19/2024 11:40:25 CBC 2023 024 [facility] (Registration ), [address] [place] [address] [place], [address], 04/18/2024 15:08:25 ferritin, serum or plasma 2023 024 [facility] (Registration ), [address] [place] [address] [place], [address], 04/19/2024 11:41:22 iron + total iron-bind ing capacity (TIBC), serum 2023 024 [facility] (Registration ), [address] [place] [address] [place], [address], 04/19/2024 11:43:17 Referral None recorded. Procedures None recorded. Surgeries None recorded. Imaging electroca rdiogram 2023 024 [facility], [address], [place], [address], 10/14/2023 11:56:21 Medication Orders tramadol 50 mg tablet 2023 024 [facility], [address] [facility], [place], [address], 02/19/2024 13:12:28 furosemid e 80 mg tablet 2023 024 [facility], [address] [place] [address], [address], [place], [address], 03/04/2024 14:49:38 spironola ctone 25 mg tablet [address], [address] [place] [address], [facility] [[email or web address] [place], [address], 12/02/2023 12:50:28 lisinopri l 5 mg tablet 2023 024 [facility], [address] [place] [address], [facility] [[email or web address] 7, [place], [address], 02/19/2024 13:19:32 carvedilo l 25 mg tablet 2023 [facility], [address] [place] [address], [address], [place], [address], 04/29/2024 12:42:49 hydromorp ricky 2 mg tablet 2023 024 [facility], [address] [place], [address], 03/04/2024 15:12:30 levothyro xine 75 mcg tablet [address] [facility], [address] [place], [address], 03/04/2024 16:32:19 Patient TargetsNo targets recorded. Patient InstructionsNo instructions recorded. 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 None Reported. Results Created Date Observation Date Name Description Value Unit Range Abnormal Flag Note LastModifiedBy Organization Detail LastModifiedTime 10/14/19 24 10/14/2023 COMPL ETE BLOOD COUNT NO DIFF WBC 8.22 10_3/ uL 4.4-10 .8 normal Not Available [facility] [address] [place], [address] 10/14/2023 15:11:07 10/14/19 24 10/14/2023 COMPL ETE BLOOD COUNT NO DIFF RBC 3.22 10_6/ uL 3.93-5 .22 low Not Available [address] [place], [address] 10/14/2023 15:11:07 10/14/19 24 10/14/2023 COMPL ETE BLOOD COUNT NO DIFF HGB 10.9 g/dL 11.2-1 5.7 low Not Available [address] [place], [address] 10/14/2023 15:11:07 10/14/19 24 10/14/2023 COMPL ETE BLOOD COUNT NO DIFF HCT 32.5 % 36.0-4 6.0 low Not Available [address] [place], [address] 10/14/2023 15:11:07 10/14/19 24 10/14/2023 COMPL ETE BLOOD COUNT NO DIFF MCV 101 fL 80-95 high Not Available Ethel [address] [place], [address] 10/14/2023 15:11:07 10/14/19 24 10/14/2023 COMPL ETE BLOOD COUNT NO DIFF MCH 33.9 pg 27.0-3 3.0 high Not Available [address] [place], [address] 10/14/2023 15:11:07 10/14/19 24 10/14/2023 COMPL ETE BLOOD COUNT NO DIFF MCHC 33.5 % 32.0-3 6.0 normal Not Available [address] [place], [address] 10/14/2023 15:11:07 10/14/19 24 10/14/2023 COMPL ETE BLOOD COUNT NO DIFF RDW 13.9 % 11.7-1 4.6 normal Not Available [address] [place], [address] 10/14/2023 15:11:07 10/14/19 24 10/14/2023 COMPL ETE BLOOD COUNT NO DIFF platelet count 133 10_3/ uL 130-40 0 normal Not Available [address] [place], [address] 10/14/2023 15:11:07 10/14/19 24 10/14/2023 COMPL ETE BLOOD COUNT NO DIFF MPV 12.8 fL 8.0-11 .0 high Not Available [address] [place], [address] 10/14/2023 15:11:07 10/14/19 24 10/14/2023 BASIC METAB OLIC PANEL calcium 9.3 mg/dL 8.5-10 .1 normal Not Available [facility] (Registration ) [address] [place] [address] [place], [address], 10/14/2023 15:19:07 10/14/19 24 10/14/2023 BASIC METAB OLIC PANEL glucose 105 mg/dL 74-106 normal Not Available [facility] (Registration ) [address] [place] [address] [place], [address], 10/14/2023 15:19:07 10/14/19 24 10/14/2023 BASIC METAB OLIC PANEL BUN 49 mg/dL 7-18 high Not Available [facility] (Registration ) [address] [place] [address] [place], [address], 10/14/2023 15:19:07 10/14/19 24 10/14/2023 BASIC METAB OLIC PANEL creatinine 1.9 mg/dL 0.55-1 .02 high Not Available [facility] (Registration ) [address] [place] [address] [place], [address], 10/14/2023 15:19:07 10/14/19 24 10/14/2023 BASIC METAB [...] young er-ag ed adult s. Not Available [facility] (Registration ) [address] [place] [address] [place], [address], 10/14/2023 15:19:07 10/14/19 24 10/14/2023 BASIC METAB OLIC PANEL sodium 137 mmol/ L 136-14 5 normal Not Available [facility] (Registration ) [address] [place] [address] [place], [address], 10/14/2023 15:19:07 10/14/19 24 10/14/2023 BASIC METAB OLIC PANEL potassium 5.1 mmol/ L 3.5-5. 1 normal Not Available [facility] (Registration ) [address] [place] [address] [place], [address], 10/14/2023 15:19:07 10/14/19 24 10/14/2023 BASIC METAB OLIC PANEL chloride 104 mmol/ L 98-107 normal Not Available [facility] (Registration ) [address] [place] [address] [place], [address], 10/14/2023 15:19:07 10/14/19 24 10/14/2023 BASIC METAB OLIC PANEL CO2 20.3 mmol/ L 21.0-3 2.0 low Not Available [facility] (Registration ) [address] [place] [address] [place], [address], 10/14/2023 15:19:07 10/14/19 24 10/14/2023 BASIC METAB OLIC PANEL anion gap 12.7 mmol/ L 3-11 high Not Available [facility] (Registration ) [address] [place] [address] [place], [address], 10/14/2023 15:19:07 11/18/19 24 11/18/2023 LACTA TE lactate 1.0 mmol/ L 0.6-1. 4 normal Not Available [address] [place], [address] 11/18/2023 15:53:33 11/18/19 24 11/18/2023 COMPL ETE BLOOD COUNT W/DIF F WBC 8.69 10_3/ uL 4.4-10 .8 normal Not Available [address] [place], [address] 11/18/2023 15:57:13 11/18/19 24 11/18/2023 COMPL ETE BLOOD COUNT W/DIF F RBC 3.16 10_6/ uL 3.93-5 .22 low Not Available [address] [place], [address] 11/18/2023 15:57:13 11/18/19 24 11/18/2023 COMPL ETE BLOOD COUNT W/DIF F HGB 10.7 g/dL 11.2-1 5.7 low Not Available [address] [place], [address] 11/18/2023 15:57:13 11/18/19 24 11/18/2023 COMPL ETE BLOOD COUNT W/DIF F HCT 33.0 % 36.0-4 6.0 low Not Available [address] [place], [address] 11/18/2023 15:57:13 11/18/19 24 11/18/2023 COMPL ETE BLOOD COUNT W/DIF F MCV 104 fL 80-95 high Not Available [address] [place], [address] 11/18/2023 15:57:13 11/18/19 24 11/18/2023 COMPL ETE BLOOD COUNT W/DIF F MCH 33.9 pg 27.0-3 3.0 high Not Available [address] [place], [address] 11/18/2023 15:57:13 11/18/19 24 11/18/2023 COMPL ETE BLOOD COUNT W/DIF F MCHC 32.4 % 32.0-3 6.0 normal Not Available [address] [place], [address] 11/18/2023 15:57:13 11/18/19 24 11/18/2023 COMPL ETE BLOOD COUNT W/DIF F RDW 14.6 % 11.7-1 4.6 normal Not Available [address] [place], [address] 11/18/2023 15:57:13 11/18/19 24 11/18/2023 COMPL ETE BLOOD COUNT W/DIF F platelet count 134 10_3/ uL 130-40 0 normal Not Available [address] [place], [address] 11/18/2023 15:57:13 11/18/19 24 11/18/2023 COMPL ETE BLOOD COUNT W/DIF F MPV 11.2 fL 8.0-11 .0 high Not Available [address] [place], [address] 11/18/2023 15:57:13 11/18/19 24 11/18/2023 COMPL ETE BLOOD COUNT W/DIF F neutrophils % 74.8 % Not Available [address] [place], [address] 11/18/2023 15:57:13 11/18/19 24 11/18/2023 COMPL ETE BLOOD COUNT W/DIF F lymphocytes % 13.2 % Not Available [address] [place], [address] 11/18/2023 15:57:13 11/18/19 24 11/18/2023 COMPL ETE BLOOD COUNT W/DIF F monocytes % 5.9 % Not Available [address] [place], [address] 11/18/2023 15:57:13 11/18/19 24 11/18/2023 COMPL ETE BLOOD COUNT W/DIF F eosinophils % 5.2 % Not Available [address] [place], [address] 11/18/2023 15:57:13 11/18/19 24 11/18/2023 COMPL ETE BLOOD COUNT W/DIF F basophils % 0.6 % Not Available [address] [place], [address] 11/18/2023 15:57:13 11/18/19 24 11/18/2023 COMPL ETE BLOOD COUNT W/DIF F immature grans % 0.3 % Not Available Ariela avitia [address] [place], [address] 11/18/2023 15:57:13 11/18/19 24 11/18/2023 COMPL ETE BLOOD COUNT W/DIF F nucleated RBC 0.0 % 0.0-0. 3 normal Not Available [address] [place], [address] 11/18/2023 15:57:13 11/18/19 24 11/18/2023 COMPL ETE BLOOD COUNT W/DIF F absolute neutrophil count 6.50 10_3/ uL 1.2-6. 7 normal Not Available [address] [place], [address] 11/18/2023 15:57:13 11/18/19 24 11/18/2023 COMPL ETE BLOOD COUNT W/DIF F absolute lymphocyte count 1.15 10_3/ uL 1.2-3. 4 low Not Available [address] [place], [address] 11/18/2023 15:57:13 11/18/19 24 11/18/2023 COMPL ETE BLOOD COUNT W/DIF F absolute monocyte count 0.51 10_3/ uL 0.1-0. 8 normal Not Available [address] [place], [address] 11/18/2023 15:57:13 11/18/19 24 11/18/2023 COMPL ETE BLOOD COUNT W/DIF F absolute eosinophil count 0.45 10_3/ uL 0.0-0. 7 normal Not Available [address] [place], [address] 11/18/2023 15:57:13 11/18/19 24 11/18/2023 COMPL ETE BLOOD COUNT W/DIF F absolute basophil count 0.05 10_3/ uL 0.0-0. 2 normal Not Available [address] [place], [address] 11/18/2023 15:57:13 11/18/19 24 11/18/2023 PROTH ROMBI N TIME prothrombin time 10.5 sec 9.1-11 .1 normal Not Available [address] [place], [address] 11/18/2023 16:14:17 11/18/19 24 11/18/2023 PROTH ROMBI N TIME INR 1.0 0.9-1. 1 normal Recom noel d INR thera peuti c range s for orall y admin ister ed drugs are as follo ws: -Jair dard Inten sity 2.0 to 3.0 -High er Inten sity 3.0 to 4.5 Not Available [address] [place], [address] 11/18/2023 16:14:17 11/18/19 24 11/18/2023 PTT ACTIV ATED PTT activated 19.6 sec 23.6-3 2.8 low Hepar in Thera peuti c Range for PTT = 52-84 secon ds New Hepar in Thera peuti c Range 06/09 Not Available [address] [place], [address] 11/18/2023 16:14:18 11/18/19 24 11/18/2023 COMPR EHENS NADEEM METAB OLIC PANEL calcium 9.0 mg/dL 8.5-10 .1 normal Not Available [address] [place], [address] 11/18/2023 16:19:21 11/18/19 24 11/18/2023 COMPR EHENS NADEEM METAB OLIC PANEL glucose 100 mg/dL 74-106 normal Not Available Ethel green [address] [place], [address] 11/18/2023 16:19:21 11/18/19 24 11/18/2023 COMPR EHENS NADEEM METAB OLIC PANEL BUN 15 mg/dL 7-18 normal Not Available Ethel green [address] [place], [address] 11/18/2023 16:19:21 11/18/19 24 11/18/2023 COMPR EHENS NADEEM METAB OLIC PANEL creatinine 1.0 mg/dL 0.55-1 .02 normal Not Available [address] [place], [address] 11/18/2023 16:19:21 11/18/19 24 11/18/2023 COMPR [...] young er-ag ed adult s. Not Available [address] [place], [address] 11/18/2023 16:19:21 11/18/19 24 11/18/2023 COMPR EHENS NADEEM METAB OLIC PANEL total protein 6.8 g/dL 6.4-8. 2 normal Not Available [address] [place], [address] 11/18/2023 16:19:21 11/18/19 24 11/18/2023 COMPR EHENS NADEEM METAB OLIC PANEL albumin 3.8 g/dL 3.4-5. 0 normal Not Available [address] [place], [address] 11/18/2023 16:19:21 11/18/19 24 11/18/2023 COMPR EHENS NADEEM METAB OLIC PANEL bilirubin, total 0.92 mg/dL 0.2-1. 0 normal Not Available [address] [place], [address] 11/18/2023 16:19:21 11/18/19 24 11/18/2023 COMPR EHENS NADEEM METAB OLIC PANEL alk phos 68 U/L 46-116 normal Not Available [address] [place], [address] 11/18/2023 16:19:21 11/18/19 24 11/18/2023 COMPR EHENS NADEEM METAB OLIC PANEL sodium 144 mmol/ L 136-14 5 normal Not Available [address] [place], [address] 11/18/2023 16:19:21 11/18/19 24 11/18/2023 COMPR EHENS NADEEM METAB OLIC PANEL potassium 3.6 mmol/ L 3.5-5. 1 normal Not Available [address] [place], [address] 11/18/2023 16:19:21 11/18/19 24 11/18/2023 COMPR EHENS NADEEM METAB OLIC PANEL chloride 106 mmol/ L 98-107 normal Not Available [address] [place], [address] 11/18/2023 16:19:21 11/18/19 24 11/18/2023 COMPR EHENS NADEEM METAB OLIC PANEL CO2 29.6 mmol/ L 21.0-3 2.0 normal Not Available [address] [place], [address] 11/18/2023 16:19:21 11/18/19 24 11/18/2023 COMPR EHENS NADEEM METAB OLIC PANEL anion gap 8.4 mmol/ L 3-11 normal Not Available [address] [place], [address] 11/18/2023 16:19:21 11/18/19 24 11/18/2023 COMPR EHENS NADEEM METAB OLIC PANEL AST 15 U/L 15-37 normal Not Available Ethel green [address] [place], [address] 11/18/2023 16:19:21 11/18/19 24 11/18/2023 COMPR EHENS NADEEM METAB OLIC PANEL ALT 16 U/L 14-59 normal Not Available Ethel green [address] [place], [address] 11/18/2023 16:19:21 11/18/19 24 11/18/2023 MAGNE SIUM magnesium 1.9 mg/dL 1.8-2. 4 normal Not Available [address] [place], [address] 11/18/2023 16:19:21 11/18/19 24 11/18/2023 LIPAS E lipase 24 U/L 16-77 normal Not Available Ethel green [address] [place], [address] 11/18/2023 16:19:22 11/18/19 24 11/18/2023 TROPO LUCIA I troponin I < 50 NG/L < or =60 Not Available [address] [place], [address] 11/18/2023 16:19:22 11/18/19 24 11/18/2023 NT-HI OBNP nt-probnp 3052 pg/mL <300 high NT-pr [...] false negat nadeem resul ts. Not Available [address] [place], [address] 11/18/2023 16:19:23 11/18/19 24 11/18/2023 TSH (W/RE F FT4) TSH (w/ref FT4) 0.49 uIU/m L 0.36-3 .74 normal Not Available [address] [place], [address] 11/18/2023 16:22:20 11/18/19 24 11/18/2023 URINA LYSIS color Yellow yellow Not Available Ethel green [address] [place], [address] 11/18/2023 19:26:06 07/17/11/18/2023 URINA LYSIS clarity Clear clear Not Available Ethel green [address] [place], [address] 11/18/2023 19:26:06 11/18/19 24 11/18/2023 URINA LYSIS specific gravity 1.015 1.005- 1.025 normal Not Available [address] [place], [address] 11/18/2023 19:26:06 11/18/19 24 11/18/2023 URINA LYSIS pH 6.5 5-8 normal Not Available Ethel green [address] [place], [address] 11/18/2023 19:26:06 11/18/19 24 11/18/2023 URINA LYSIS leukocyte esterase Small negati ve abnormal Not Available [address] [place], [address] 11/18/2023 19:26:06 11/18/19 24 11/18/2023 URINA LYSIS nitrite Negati ve negati ve Not Available [address] [place], [address] 11/18/2023 19:26:06 11/18/19 24 11/18/2023 URINA LYSIS protein Negati ve mg/dL neg-tr patrick Not Available [address] [place], [address] 11/18/2023 19:26:06 11/18/19 24 11/18/2023 URINA LYSIS glucose Negati ve mg/dL negati ve Not Available [address] [place], [address] 11/18/2023 19:26:06 11/18/19 24 11/18/2023 URINA LYSIS ketones Negati ve mg/dL negati ve Not Available [address] [place], [address] 11/18/2023 19:26:06 11/18/19 24 11/18/2023 URINA LYSIS urobilinogen 0.2 mg/dL up to 0.2 Not Available [address] [place], [address] 11/18/2023 19:26:06 11/18/19 24 11/18/2023 URINA LYSIS bilirubin Negati ve negati ve Not Available [address] [place], [address] 11/18/2023 19:26:06 11/18/19 24 11/18/2023 URINA LYSIS blood Negati ve negati ve Not Available [address] [place], [address] 11/18/2023 19:26:06 11/18/19 24 11/18/2023 URINA LYSIS color Yellow yellow Not Available Ethel green [address] [place], [address] 11/18/2023 20:30:25 11/18/19 24 11/18/2023 URINA LYSIS clarity Clear clear Not Available Ethel green [address] [place], [address] 11/18/2023 20:30:25 11/18/19 24 11/18/2023 URINA LYSIS specific gravity 1.015 1.005- 1.025 normal Not Available [address] [place], [address] 11/18/2023 20:30:25 11/18/19 24 11/18/2023 URINA LYSIS pH 6.5 5-8 normal Not Available Ethel green [address] [place], [address] 11/18/2023 20:30:25 11/18/19 24 11/18/2023 URINA LYSIS leukocyte esterase Small negati ve abnormal Not Available [address] [place], [address] 11/18/2023 20:30:25 11/18/19 24 11/18/2023 URINA LYSIS nitrite Negati ve negati ve Not Available [address] [place], [address] 11/18/2023 20:30:25 11/18/19 24 11/18/2023 URINA LYSIS protein Negati ve mg/dL neg-tr patrick Not Available [address] [place], [address] 11/18/2023 20:30:25 11/18/19 24 11/18/2023 URINA LYSIS glucose Negati ve mg/dL negati ve Not Available [address] [place], [address] 11/18/2023 20:30:25 11/18/19 24 11/18/2023 URINA LYSIS ketones Negati ve mg/dL negati ve Not Available [address] [place], [address] 11/18/2023 20:30:25 11/18/19 24 11/18/2023 URINA LYSIS urobilinogen 0.2 mg/dL up to 0.2 Not Available [address] [place], [address] 11/18/2023 20:30:25 11/18/19 24 11/18/2023 URINA LYSIS bilirubin Negati ve negati ve Not Available [address] [place], [address] 11/18/2023 20:30:25 11/18/19 24 11/18/2023 URINA LYSIS blood Negati ve negati ve Not Available [address] [place], [address] 11/18/2023 20:30:25 11/18/19 24 11/18/2023 MICRO SCOPI C FINDI NGS WBC 3-5 hpf 0-5 Not Available Ethel green [address] [place], [address] 11/18/2023 20:30:25 11/18/19 24 11/18/2023 MICRO SCOPI C FINDI NGS RBC Negati ve hpf 0-2 Not Available Joel smith [address] [place], [address] 11/18/2023 20:30:25 11/18/19 24 11/18/2023 MICRO SCOPI C FINDI NGS epithelial cells Many hpf negati ve Not Available [address] [place], [address] 11/18/2023 20:30:25 11/18/19 24 11/18/2023 MICRO SCOPI C FINDI NGS bacteria Few hpf negati ve Not Available [address] [place], [address] 11/18/2023 20:30:25 11/18/19 24 11/18/2023 MICRO SCOPI C FINDI NGS crystals Negati ve hpf negati ve Not Available [address] [place], [address] 11/18/2023 20:30:25 11/18/19 24 11/18/2023 MICRO SCOPI C FINDI NGS mucus Trace negati ve Not Available [address] [place], [address] 11/18/2023 20:30:25 11/18/19 24 11/18/2023 MICRO SCOPI C FINDI NGS C S indicated? No Not Available [address] [place], [address] 11/18/2023 20:30:25 11/18/19 24 11/18/2023 TROPO LUCIA I troponin I < 50 NG/L < or =60 Not Available [address] [place], [address] 11/18/2023 22:25:47 11/18/19 24 11/18/2023 VENOU S BLOOD GAS pH (venous) 7.45 7.31-7 .41 high Not Available [address] [place], [address] 11/18/2023 23:12:54 11/18/19 24 11/18/2023 VENOU S BLOOD GAS pCO2 (venous) 44 mmHg 41-51 normal Not Available [address] [place], [address] 11/18/2023 23:12:54 11/18/19 24 11/18/2023 VENOU S BLOOD GAS pO2 (venous) 37 mmHg Not Available [address] [place], [address] 11/18/2023 23:12:54 11/18/19 24 11/18/2023 VENOU S BLOOD GAS TCO2 (venous) 28 mmol/ L 24-29 normal Not Available [address] [place], [address] 11/18/2023 23:12:54 11/18/19 24 11/18/2023 VENOU S BLOOD GAS HCO3 (venous) 30 mmol/ L 23-28 high Not Available [address] [place], [address] 11/18/2023 23:12:54 11/18/19 24 11/18/2023 VENOU S BLOOD GAS BE (venous) 6 mmol/ L -2-3 high Not Available [address] [place], [address] 11/18/2023 23:12:54 11/18/19 24 11/18/2023 VENOU S BLOOD GAS O2 sat (venous) 74 % Not Available Arilea avitia [address] [place], [address] 11/18/2023 23:12:54 11/19/19 24 11/19/2023 COMPL ETE BLOOD COUNT W/DIF F WBC 7.07 10_3/ uL 4.4-10 .8 normal Not Available [address] [place], [address] 11/19/2023 07:03:22 11/19/19 24 11/19/2023 COMPL ETE BLOOD COUNT W/DIF F RBC 2.93 10_6/ uL 3.93-5 .22 low Not Available [address] [place], [address] 11/19/2023 07:03:22 11/19/19 24 11/19/2023 COMPL ETE BLOOD COUNT W/DIF F HGB 9.8 g/dL 11.2-1 5.7 low Not Available [address] [place], [address] 11/19/2023 07:03:22 11/19/19 24 11/19/2023 COMPL ETE BLOOD COUNT W/DIF F HCT 30.5 % 36.0-4 6.0 low Not Available [address] [place], [address] 11/19/2023 07:03:22 11/19/19 24 11/19/2023 COMPL ETE BLOOD COUNT W/DIF F MCV 104 fL 80-95 high Not Available Ethel green [address] [place], [address] 11/19/2023 07:03:22 11/19/19 24 11/19/2023 COMPL ETE BLOOD COUNT W/DIF F MCH 33.4 pg 27.0-3 3.0 high Not Available [address] [place], [address] 11/19/2023 07:03:22 11/19/19 24 11/19/2023 COMPL ETE BLOOD COUNT W/DIF F MCHC 32.1 % 32.0-3 6.0 normal Not Available [address] [place], [address] 11/19/2023 07:03:22 11/19/19 24 11/19/2023 COMPL ETE BLOOD COUNT W/DIF F RDW 14.4 % 11.7-1 4.6 normal Not Available [address] [place], [address] 11/19/2023 07:03:22 11/19/19 24 11/19/2023 COMPL ETE BLOOD COUNT W/DIF F platelet count 112 10_3/ uL 130-40 0 low Not Available [address] [place], [address] 11/19/2023 07:03:22 11/19/19 24 11/19/2023 COMPL ETE BLOOD COUNT W/DIF F MPV 10.8 fL 8.0-11 .0 normal Not Available [address] [place], [address] 11/19/2023 07:03:22 11/19/19 24 11/19/2023 COMPL ETE BLOOD COUNT W/DIF F neutrophils % 74.3 % Not Available [address] [place], [address] 11/19/2023 07:03:22 11/19/19 24 11/19/2023 COMPL ETE BLOOD COUNT W/DIF F lymphocytes % 14.1 % Not Available [address] [place], [address] 11/19/2023 07:03:22 11/19/19 24 11/19/2023 COMPL ETE BLOOD COUNT W/DIF F monocytes % 6.5 % Not Available [address] [place], [address] 11/19/2023 07:03:22 11/19/19 24 11/19/2023 COMPL ETE BLOOD COUNT W/DIF F eosinophils % 4.4 % Not Available [address] [place], [address] 11/19/2023 07:03:22 11/19/19 24 11/19/2023 COMPL ETE BLOOD COUNT W/DIF F basophils % 0.4 % Not Available [address] [place], [address] 11/19/2023 07:03:22 11/19/19 24 11/19/2023 COMPL ETE BLOOD COUNT W/DIF F immature grans % 0.3 % Not Available [address] [place], [address] 11/19/2023 07:03:22 11/19/19 24 11/19/2023 COMPL ETE BLOOD COUNT W/DIF F nucleated RBC 0.0 % 0.0-0. 3 normal Not Available [address] [place], [address] 11/19/2023 07:03:22 11/19/19 24 11/19/2023 COMPL ETE BLOOD COUNT W/DIF F absolute neutrophil count 5.25 10_3/ uL 1.2-6. 7 normal Not Available [address] [place], [address] 11/19/2023 07:03:22 11/19/19 24 11/19/2023 COMPL ETE BLOOD COUNT W/DIF F absolute lymphocyte count 1.00 10_3/ uL 1.2-3. 4 low Not Available [address] [place], [address] 11/19/2023 07:03:22 11/19/19 24 11/19/2023 COMPL ETE BLOOD COUNT W/DIF F absolute monocyte count 0.46 10_3/ uL 0.1-0. 8 normal Not Available [address] [place], [address] 11/19/2023 07:03:22 11/19/19 24 11/19/2023 COMPL ETE BLOOD COUNT W/DIF F absolute eosinophil count 0.31 10_3/ uL 0.0-0. 7 normal Not Available [address] [place], [address] 11/19/2023 07:03:22 11/19/19 24 11/19/2023 COMPL ETE BLOOD COUNT W/DIF F absolute basophil count 0.03 10_3/ uL 0.0-0. 2 normal Not Available [address] [place], [address] 11/19/2023 07:03:22 11/19/19 24 11/19/2023 IRON AND IBCT iron 45 ug/dL 50-170 low Not Available Ethel green [address] [place], [address] 11/19/2023 07:24:25 11/19/19 24 11/19/2023 IRON AND IBCT total iron binding capacity 284 ug/dL 250-45 0 normal Not Available [address] [place], [address] 11/19/2023 07:24:25 11/19/19 24 11/19/2023 IRON AND IBCT transferrin sat 16 % 15-50 normal Not Available Ariela avitia [address] [place], [address] 11/19/2023 07:24:25 11/19/19 24 11/19/2023 BASIC METAB OLIC PANEL calcium 8.5 mg/dL 8.5-10 .1 normal Not Available [address] [place], [address] 11/19/2023 07:49:36 11/19/19 24 11/19/2023 BASIC METAB OLIC PANEL glucose 93 mg/dL 74-106 normal Not Available Ethel green [address] [place], [address] 11/19/2023 07:49:36 11/19/19 24 11/19/2023 BASIC METAB OLIC PANEL BUN 12 mg/dL 7-18 normal Not Available Ethel green [address] [place], [address] 11/19/2023 07:49:36 11/19/19 24 11/19/2023 BASIC METAB OLIC PANEL creatinine 0.8 mg/dL 0.55-1 .02 normal Not Available [address] [place], [address] 11/19/2023 07:49:36 11/19/19 24 11/19/2023 BASIC METAB [...] young er-ag ed adult s. Not Available [address] [place], [address] 11/19/2023 07:49:36 11/19/19 24 11/19/2023 BASIC METAB OLIC PANEL sodium 147 mmol/ L 136-14 5 high Not Available [address] [place], [address] 11/19/2023 07:49:36 11/19/19 24 11/19/2023 BASIC METAB OLIC PANEL potassium 3.2 mmol/ L 3.5-5. 1 low Not Available [address] [place], [address] 11/19/2023 07:49:36 11/19/19 24 11/19/2023 BASIC METAB OLIC PANEL chloride 107 mmol/ L 98-107 normal Not Available [address] [place], [address] 11/19/2023 07:49:36 11/19/19 24 11/19/2023 BASIC METAB OLIC PANEL CO2 31.2 mmol/ L 21.0-3 2.0 normal Not Available [address] [place], [address] 11/19/2023 07:49:36 11/19/19 24 11/19/2023 BASIC METAB OLIC PANEL anion gap 8.8 mmol/ L 3-11 normal Not Available [address] [place], [address] 11/19/2023 07:49:36 11/19/19 24 11/19/2023 DANIEL TIN ferritin 169 NG/mL 8-252 normal Not Available [address] [place], [address] 11/19/2023 07:49:36 11/19/19 24 11/19/2023 MAGNE SIUM magnesium 1.8 mg/dL 1.8-2. 4 normal Not Available [address] [place], [address] 11/19/2023 07:49:37 11/19/19 24 11/19/2023 VITAM IN B12 vitamin B12 1124 pg/mL 193-98 6 high Not Available [address] [place], [address] 11/19/2023 07:49:37 11/19/19 24 11/19/2023 FOLAT E folate 19.3 NG/mL 8.6-20 .0 normal Not Available [address] [place], [address] 11/19/2023 07:49:37 11/19/19 24 11/20/2023 TRANS DANIEL N transferrin 188 mg/dL 201-35 2 abnormal Test perfo rmed or refer red by [facility] [address], [place] [address] Not Available [address] [place], [address] 11/23/2023 12:15:30 11/20/19 24 11/20/2023 BASIC METAB OLIC PANEL calcium 8.9 mg/dL 8.5-10 .1 normal Not Available [address] [place], [address] 11/20/2023 07:12:43 11/20/19 24 11/20/2023 BASIC METAB OLIC PANEL glucose 115 mg/dL 74-106 high Not Available Ethel green [address] [place], [address] 11/20/2023 07:12:43 11/20/19 24 11/20/2023 BASIC METAB OLIC PANEL BUN 19 mg/dL 7-18 high Not Available Ethel green [address] [place], [address] 11/20/2023 07:12:43 11/20/19 24 11/20/2023 BASIC METAB OLIC PANEL creatinine 1.0 mg/dL 0.55-1 .02 normal Not Available [address] [place], [address] 11/20/2023 07:12:43 11/20/19 24 11/20/2023 BASIC METAB [...] young er-ag ed adult s. Not Available [address] [place], [address] 11/20/2023 07:12:43 11/20/19 24 11/20/2023 BASIC METAB OLIC PANEL sodium 140 mmol/ L 136-14 5 normal Not Available [address] [place], [address] 11/20/2023 07:12:43 11/20/19 24 11/20/2023 BASIC METAB OLIC PANEL potassium 3.6 mmol/ L 3.5-5. 1 normal Not Available [address] [place], [address] 11/20/2023 07:12:43 11/20/19 24 11/20/2023 BASIC METAB OLIC PANEL chloride 100 mmol/ L 98-107 normal Not Available [address] [place], [address] 11/20/2023 07:12:43 11/20/19 24 11/20/2023 BASIC METAB OLIC PANEL CO2 33.2 mmol/ L 21.0-3 2.0 high Not Available [address] [place], [address] 11/20/2023 07:12:43 11/20/19 24 11/20/2023 BASIC METAB OLIC PANEL anion gap 6.8 mmol/ L 3-11 normal Not Available [address] [place], [address] 11/20/2023 07:12:43 12/02/19 24 12/02/2023 BASIC METAB OLIC PANEL calcium 9.8 mg/dL 8.5-10 .1 normal Not Available [address] [place], [address] 12/02/2023 16:25:21 12/02/19 24 12/02/2023 BASIC METAB OLIC PANEL glucose 104 mg/dL 74-106 normal Not Available Ethel green [address] [place], [address] 12/02/2023 16:25:21 12/02/19 24 12/02/2023 BASIC METAB OLIC PANEL BUN 20 mg/dL 7-18 high Not Available Ethel green [address] [place], [address] 12/02/2023 16:25:21 12/02/19 24 12/02/2023 BASIC METAB OLIC PANEL creatinine 1.1 mg/dL 0.55-1 .02 high Not Available [address] [place], [address] 12/02/2023 16:25:21 12/02/19 24 12/02/2023 BASIC METAB [...] young er-ag ed adult s. Not Available [address] [place], [address] 12/02/2023 16:25:21 12/02/19 24 12/02/2023 BASIC METAB OLIC PANEL sodium 143 mmol/ L 136-14 5 normal Not Available [address] [place], [address] 12/02/2023 16:25:21 12/02/19 24 12/02/2023 BASIC METAB OLIC PANEL potassium 4.6 mmol/ L 3.5-5. 1 normal Not Available [address] [place], [address] 12/02/2023 16:25:21 12/02/19 24 12/02/2023 BASIC METAB OLIC PANEL chloride 106 mmol/ L 98-107 normal Not Available [address] [place], [address] 12/02/2023 16:25:21 12/02/19 24 12/02/2023 BASIC METAB OLIC PANEL CO2 29.1 mmol/ L 21.0-3 2.0 normal Not Available [address] [place], [address] 12/02/2023 16:25:21 12/02/19 24 12/02/2023 BASIC METAB OLIC PANEL anion gap 7.9 mmol/ L 3-11 normal Not Available [address] [place], [address] 12/02/2023 16:25:21 12/02/19 24 12/02/2023 MAGNE SIUM magnesium 1.8 mg/dL 1.8-2. 4 normal Not Available [address] [place], [address] 12/02/2023 16:25:22 12/02/19 24 12/02/2023 NT-HI OBNP nt-probnp 2190 pg/mL <300 high NT-pr [...] false negat nadeem resul ts. Not Available [facility] (Registration ) [address] [place] [address] [place], [address], 12/02/2023 16:25:22 12/02/19 24 12/02/2023 COMPL ETE BLOOD COUNT NO DIFF WBC 7.43 10_3/ uL 4.4-10 .8 normal Not Available [address] [place], [address] 12/02/2023 16:35:23 12/02/19 24 12/02/2023 COMPL ETE BLOOD COUNT NO DIFF RBC 3.18 10_6/ uL 3.93-5 .22 low Not Available [address] [place], [address] 12/02/2023 16:35:23 12/02/19 24 12/02/2023 COMPL ETE BLOOD COUNT NO DIFF HGB 10.6 g/dL 11.2-1 5.7 low Not Available [address] [place], [address] 12/02/2023 16:35:23 12/02/19 24 12/02/2023 COMPL ETE BLOOD COUNT NO DIFF HCT 33.5 % 36.0-4 6.0 low Not Available [address] [place], [address] 12/02/2023 16:35:23 12/02/19 24 12/02/2023 COMPL ETE BLOOD COUNT NO DIFF MCV 105 fL 80-95 high 1+ macro cytos is Not Available [address] [place], [address] 12/02/2023 16:35:23 12/02/19 24 12/02/2023 COMPL ETE BLOOD COUNT NO DIFF MCH 33.3 pg 27.0-3 3.0 high Not Available [address] [place], [address] 12/02/2023 16:35:23 12/02/19 24 12/02/2023 COMPL ETE BLOOD COUNT NO DIFF MCHC 31.6 % 32.0-3 6.0 low Not Available [address] [place], [address] 12/02/2023 16:35:23 12/02/19 24 12/02/2023 COMPL ETE BLOOD COUNT NO DIFF RDW 13.3 % 11.7-1 4.6 normal Not Available [address] [place], [address] 12/02/2023 16:35:23 12/02/19 24 12/02/2023 COMPL ETE BLOOD COUNT NO DIFF platelet count 140 10_3/ uL 130-40 0 normal Not Available [address] [place], [address] 12/02/2023 16:35:23 12/02/19 24 12/02/2023 COMPL ETE BLOOD COUNT NO DIFF MPV 11.8 fL 8.0-11 .0 high Not Available [address] [place], [address] 12/02/2023 16:35:23 04/18/20 24 04/18/2024 COMPL ETE BLOOD COUNT NO DIFF WBC 6.58 10_3/ uL 4.4-10 .8 normal Not Available [address] [place], [address] 04/18/2024 15:08:25 04/18/20 24 04/18/2024 COMPL ETE BLOOD COUNT NO DIFF RBC 3.70 10_6/ uL 3.93-5 .22 low Not Available [address] [place], [address] 04/18/2024 15:08:25 04/18/20 24 04/18/2024 COMPL ETE BLOOD COUNT NO DIFF HGB 12.0 g/dL 11.2-1 5.7 normal Not Available [address] [place], [address] 04/18/2024 15:08:25 04/18/20 24 04/18/2024 COMPL ETE BLOOD COUNT NO DIFF HCT 38.0 % 36.0-4 6.0 normal Not Available [address] [place], [address] 04/18/2024 15:08:25 04/18/20 24 04/18/2024 COMPL ETE BLOOD COUNT NO DIFF MCV 103 fL 80-95 high Not Available [address] [place], [address] 04/18/2024 15:08:25 04/18/20 24 04/18/2024 COMPL ETE BLOOD COUNT NO DIFF MCH 32.4 pg 27.0-3 3.0 normal Not Available [address] [place], [address] 04/18/2024 15:08:25 04/18/20 24 04/18/2024 COMPL ETE BLOOD COUNT NO DIFF MCHC 31.6 % 32.0-3 6.0 low Not Available [address] [place], [address] 04/18/2024 15:08:25 04/18/20 24 04/18/2024 COMPL ETE BLOOD COUNT NO DIFF RDW 15.6 % 11.7-1 4.6 high Not Available [address] [place], [address] 04/18/2024 15:08:25 04/18/20 24 04/18/2024 COMPL ETE BLOOD COUNT NO DIFF platelet count 124 10_3/ uL 130-40 0 low Not Available [address] [place], [address] 04/18/2024 15:08:25 04/18/20 24 04/18/2024 COMPL ETE BLOOD COUNT NO DIFF MPV 11.2 fL 8.0-11 .0 high Not Available [address] [place], [address] 04/18/2024 15:08:25 04/18/20 24 04/18/2024 IRON AND IBCT iron 65 ug/dL 50-170 normal Not Available [facility] (Registration ) [address] [place] [address] [place], [address], 04/18/2024 16:07:17 04/18/20 24 04/18/2024 IRON AND IBCT total iron binding capacity 318 ug/dL 250-45 0 normal Not Available [facility] (Registration ) [address] [place] [address] [place], [address], 04/18/2024 16:07:17 04/18/20 24 04/18/2024 IRON AND IBCT transferrin sat 20 % 15-50 normal Not Available [facility] (Registration ) [address] [place] [address] [place], [address], 04/18/2024 16:07:17 04/18/20 24 04/18/2024 BASIC METAB OLIC PANEL calcium 9.4 mg/dL 8.5-10 .1 normal Not Available [facility] (Registration ) [address] [place] [address] [place], [address], 04/18/2024 16:09:17 04/18/20 24 04/18/2024 BASIC METAB OLIC PANEL glucose 103 mg/dL 74-106 normal Not Available [facility] (Registration ) [address] [place] [address] [place], [address], 04/18/2024 16:09:17 04/18/20 24 04/18/2024 BASIC METAB OLIC PANEL BUN 21 mg/dL 7-18 high Not Available [facility] (Registration ) [address] [place] [address] [place], [address], 04/18/2024 16:09:17 04/18/20 24 04/18/2024 BASIC METAB OLIC PANEL creatinine 1.0 mg/dL 0.55-1 .02 normal Not Available [facility] (Registration ) [address] [place] [address] [place], [address], 04/18/2024 16:09:17 04/18/20 24 04/18/2024 BASIC METAB [...] young er-ag ed adult s. Not Available [facility] (Registration ) [address] [place] [address] [place], [address], 04/18/2024 16:09:17 04/18/20 24 04/18/2024 BASIC METAB OLIC PANEL sodium 145 mmol/ L 136-14 5 normal Not Available [facility] (Registration ) [address] [place] [address] [place], [address], 04/18/2024 16:09:17 04/18/20 24 04/18/2024 BASIC METAB OLIC PANEL potassium 4.2 mmol/ L 3.5-5. 1 normal Not Available [facility] (Registration ) [address] [place] [address] [place], [address], 04/18/2024 16:09:17 04/18/20 24 04/18/2024 BASIC METAB OLIC PANEL chloride 107 mmol/ L 98-107 normal Not Available [facility] (Registration ) [address] [place] [address] [place], [address], 04/18/2024 16:09:17 04/18/20 24 04/18/2024 BASIC METAB OLIC PANEL CO2 31.4 mmol/ L 21.0-3 2.0 normal Not Available [facility] (Registration ) [address] [place] [address] [place], [address], 04/18/2024 16:09:17 04/18/20 24 04/18/2024 BASIC METAB OLIC PANEL anion gap 6.6 mmol/ L 3-11 normal Not Available [facility] (Registration ) [address] [place] [address] [place], [address], 04/18/2024 16:09:17 04/18/20 24 04/18/2024 DANIEL TIN ferritin 211 NG/mL 8-252 normal Not Available [facility] (Registration ) [address] [place] [address] [place], [address], 04/18/2024 16:09:18 04/18/20 24 04/18/2024 TSH (W/RE F FT4) TSH (w/ref FT4) 2.17 uIU/m L 0.36-3 .74 normal NOTE: Supra -phys iolog ic doses of Bioti n(B7) may cause false negat nadeem resul ts. Not Available [facility] (Registration ) [address] [place] [address] [place], [address], 04/18/2024 16:09:18 04/18/20 24 04/18/2024 VITAM IN D 25 TOTAL vitamin D 25 total 63.9 NG/mL 30-100 normal Refer ence Guide lines : Defic ient: <10 ng/ml Insuf ficie nt: 10-30 ng/ml Suffi cient : 30-10 0 ng/ml Toxic : >100 ng/ml Not Available [address] [place], [address] 04/18/2024 16:09:19 04/18/20 24 04/18/2024 HEMOG LOBIN [...] pleme nt 1):S1 3-s28 . Not Available [facility] (Registration ) [address] , [place], [address], 04/18/2024 16:21:24 10/14/19 24 10/14/2023 elect rocar diogr am No observ ation record ed. [facility] [address] , [place], [address], 10/14/2023 11:56:20 10/14/19 24 elect rocar diogr am No observ ation record ed. Not Available 2023 10:55:07 11/04/19 24 10/14/2023 rhyth m strip , EKG* No observ ation record ed. [email or web address] Not Available 2023 10:18:08 11/18/19 24 11/18/2023 US, duple x, lower extre mity Patien t Name: Rema Olson Unit #: [id number] Loc: ER Sonal ng Provid er: Braydon Doyle Accoun t #: [id number] Status : REG ER Primar y [facility] er: Erich Her M.D. Date [...] tation , and color Dopple r. The binder chainstitch ior tibial veins are patent . IMPRES [...] error, please notify us immedi ately at [phone] and return the origin al report to us at the addres s above. Thank- you. [facility] [address], [place], [address] 11/18/2023 16:48:49 11/18/19 24 11/18/2023 CT imagi martin hackett Name: Rema Olson Unit #: [id number] Loc: ER Sonal salazar Provid er: Braydon Doyle Accoun t #: [id number] Status : REG ER Primar y Care [...] interl obular septal thicke jama greate r binder chainstitch iorly which could indica te mild CHF. No consol idatio n or domina nt measur able mass. Pleura : Small left pleura l effusi on. Heart: The heart is modera tely dilate d. [employer] ior perica rdial effusi on. Minima l [...] . Small perica rdial effusi on seen binder chainstitch iorly. Small left pleura l effusi on. [...] error, please notify us immedi zayly at [phone] and return the origin al report to us at the addres s above. Thank- you. [facility] [address], [place], [address] 11/19/2023 12:12:11 11/19/19 24 11/19/2023 ultra sound imagi martin hackett Name: Rema Olson Unit #: [id number] Loc: MS Sonal salazar Provid er: Huseyin Bolaños M.D. Accoun t #: [id number] Status : ADM IN Primar y [facility] er: Erich Her M.D. Date of Exam: Sex: F Admiss ion Date: : 1945 Age: 78 ------ ------ --- APPROV ED REPORT ------ ------ -- EXAM: Compre hensmelina e 2D, Dopple r, and color- flow Echoca rdiogr am Tika ahckett Locati on: In-Pat ient Room/B ed: 212 [...] at the addres s above. Thank- you. [place] [id number] [facility] [place], [address] 11/19/2023 12:12:11 01/18/20 24 11/15/2018 imagi ng/di [...] humeral fracture 2023- MD [address], [place], [address] , [facility] 4 17:34:10 Hypothyr oidism 72160647 Active 1959 EVIE shaw, [facility] 4 10:29:59 [facility] hyperten jason 97180324 Active 1959 EVIE shaw, [facility] 4 10:29:36 Hyperlip idemia 09512472 Active 1959 on statin MD [address], [place], [address] , [facility] 4 20:35:18 Spinal stenosis of lumbar region 14913675 Active 2012 s/p lumbar for[place] L4 MD [address], [place], [address] , [facility] 4 20:36:41 Sleep apnea 68414979 Active 2012 on CPAP MD [address], [place], [address] , [facility] 4 20:39:31 Gastroes ophageal reflux disease without esophagi tis 893210191 Completed 195908/12/2023 Removal Reason: resolved with surgical repair of HH MD [address], [place], [address] , [facility] 4 10:41:24 Family history of malignan t neoplasm of digestiv e organ 217630398 Active [address], [place], [address] , [facility] 4 20:37:03 Paresthe samir 04750884 Completed 201412/01/2014 11/28/19 15 - Comments only - Erich Her MD - check B12 and folate Problem Code: R20.2; Problem Code Type: ICD-10; Not Available [facility] 3 05:53:48 Adult health examinat ion Active [address], [place], [address] , [facility] 4 20:33:34 Pre-surg ruben evaluati [...] Z01.818; Problem Code Type: ICD-10; Not Available [facility] 3 05:53:48 Localize d edema 306880004 Completed 201501/29/2016 12/13/19 16 - Comments only - Erich Her MD - and some on left as well, will check BMP. 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 Nusrat esparza for removal. Problem Code: L72.3; Problem Code Type: ICD-10; Not Available [facility] 3 05:53:49 Chronic ulcer of foot [id number] Completed 201601/16/2017 12/18/19 17 - Comments only - Erich Her MD - Due to injury. This does appear to have some granulat ion tissue and to be healing. She is given a prescrip tion for Keflex to take only if erythema seems to be extendin g. Problem Code: L97.509; Problem Code Type: ICD-10; Not Available [facility] 3 05:53:49 Diarrhea [id number] Completed 201602/10/2017 02/05/20 17 - Comments only - Erich Her MD - [facility] over several months, we will collect stool for C. 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 6 mm PT1NO E2P2 poistive , HER2 negative MD [address], [place], [address] , [facility] 4 20:38:49 Pain in left lower limb 647620226 Active 2016 EVIE shaw, [facility] 4 10:32:00 Pain in thoracic spine 755392792 Active 2016 EVIE shaw, [facility] 4 10:32:06 Spasm 53678447 Active 2017 EVIE shaw, [facility] 4 10:33:28 Abdomina l distensi on, gaseous 104560171 Completed 201703/08/2018 Problem Code: R14.0; Problem Code Type: ICD-10; Not Available [facility] 3 05:53:50 Cellulit is of toe 90388161 Completed 201808/12/2018 Problem Code: L03.039; Problem Code Type: ICD-10; Not Available [facility] 3 05:53:51 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 4 14:36:02 Tachsrinivas lea 3164444 Completed 201811/25/2018 Problem Code: R00.0; Problem Code Type: ICD-10; Not Available [facility] 3 05:53:51 Pre-surg ruben evaluati on Completed 201811/25/2018 Problem Code: Z01.818; Problem Code Type: ICD-10; Not Available [facility] 3 05:53:51 Iron deficien cy anemia 96934330 Active 2019 elevated MCV: normal B12 2021, normal folate 2018 IV iron 2023 EGD 01/2022 paraesop hageal hernia (since repaired ) colo 03/2017 normal ERICH HER MD [facility] [address], [place], [address] , [facility], [facility]. 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 - Likely aggravat ed by increase [...] M54.40; Problem Code Type: ICD-10; Not Available [facility] 3 05:53:52 Right side sciatica 25978594601 9101 Active 2019 EVIE HOOPER colin, [facility] 4 10:33:09 Left side sciatica 34055404787 9104 Active [address], [facility] [address] , [facility] 4 17:20:20 Diaphrag matic hernia 33354657 Completed 202108/11/2023 Removal Reason: s/p repair MD [address], [facility] [address] , [facility] 4 20:50:39 History of SARS-CoV -2 63461768566 9010188 Completed 202104/04/2022 03/21/20 22 - Comments only - Erich Her MD - testing is negative today in the office. Still some fatigue but otherwis e recoveri ng. Did get MAB. Already had covid bivalent booster prior to illness Problem Code: Z86.16; Problem Code Type: ICD-10; Not Available [facility] 3 05:53:53 Diarrhea 92721022 Completed 202104/18/2022 Problem Code: R19.7; Problem Code Type: ICD-10; MD [address], [facility] [address] , [facility] 4 21:03:02 Screenin g mammogra phy Completed 202208/11/[address], [facility] [address] , [facility] 4 20:36:56 Carpal tunnel syndrome of left wrist 93814366234 9102 Completed 202201/23/2023 Problem Code: G56.02; Problem Code Type: ICD-10; Not Available [facility] 4 05:37:46 Diarrhea 08042848 Active 2022 started colestip ol 01/2023 ERICH HER MD [address], [place], [address] , [facility]. 4 21:03:02 Carpal tunnel syndrome of right wrist 08579248421 9108 Completed 201803/19/2020 Problem Code: G56.01; Problem Code Type: ICD-10; Not Available [facility] 3 05:53:55 Pain of left knee joint 91283393127 4107 Completed 202107/30/2022 Problem Code: M25.562; Problem Code Type: ICD-10; Not Available [facility] 3 05:53:55 Hypersom korina 38697736 Completed 201311/27/2014 Problem Code: 780.54; Problem Code Type: ICD-9; Not Available [facility] 3 05:53:56 Screenin g for disorder Completed 201909/11/2021 Problem Code: Z13.9; Problem Code Type: ICD-10; Not Available [facility] 3 05:53:56 Anemia 496217435 Completed 201903/19/2020 Problem Code: D64.9; Problem Code Type: ICD-10; Not Available [facility] 3 05:53:56 Long-ter m current use of anticoag ulant 690656749 Completed 201709/01/2018 Problem Code: Z79.01; Problem Code Type: ICD-10; Not Available [facility] 3 05:53:57 Chronic rhinitis 96606856 Completed 202108/12/2021 Problem Code: J31.0; Problem Code Type: ICD-10; Not Available [facility] 3 05:53:57 Impaired fasting glycemia 706963463 Completed 201401/28/2023 Not Available [facility] 3 05:53:57 Fatigue 50198425 Completed 201903/19/2020 Problem Code: R53.83; Problem Code Type: ICD-10; Not Available [facility] 3 05:53:58 Upper respirat ory tract infectio n caused by Influenz a A 96249277862 9104 Completed 201707/02/2017 Problem Code: J09.x2; Problem Code Type: ICD-10; Not Available [facility] 3 05:53:59 Diarrhea 91840652 Completed 201709/01/2018 ERICH HER MD [facility] [address], [place], [address] [facility] 4 21:03:02 Acute upper respirat ory infectio n 94533186 Completed 202108/26/2021 Problem Code: J06.9; Problem Code Type: ICD-10; Not Available [facility] 3 05:53:59 Pain in right foot 14307979285 9107 Completed 202207/30/2022 Problem Code: M79.671; Problem Code Type: ICD-10; Not Available [facility] 3 05:54:00 Breast composit ion 304294555 Completed 201601/28/2023 Not Available [facility] 3 05:54:00 Changes in skin texture 673696352 Completed 202207/30/2022 Problem Code: R23.4; Problem Code Type: ICD-10; Not Available [facility] 3 05:54:01 Spasm 02053377 Completed 201603/23/2017 Problem Code: R25.2; Problem Code Type: ICD-10; EVIE shaw [facility] 4 10:33:28 Hyperten sive disorder 63361687 Completed 11/28/19 15 - Comments only - Erich Her MD - [facility] ed, no change in medicati ons Not Available [facility] 3 05:54:03 Arthralg ia of the ankle and/or foot 909245398 Completed 201501/30/2016 Problem Code: M25.571; Problem Code Type: ICD-10; Not Available [facility] 3 05:54:03 Dyspnea 592856709 Completed 201903/19/2020 Problem Code: R06.02; Problem Code Type: ICD-10; Danica Felix [facility] 4 14:39:47 Trigger finger of right hand 33054275037 614129 Completed 201803/19/2020 Problem Code: M65.341; Problem Code Type: ICD-10; Not Available [facility] 3 05:54:06 Cough 39572364 Completed 202108/12/2021 Problem Code: R05.1; Problem Code Type: ICD-10; Not Available [facility] 3 05:54:06 At risk - finding 157350570 Completed 201811/11/2018 Problem Code: Z91.89; Problem Code Type: ICD-10; Not Available [facility] 3 05:54:06 Cough 00263973 Completed 201706/15/2017 Problem Code: R05; Problem Code Type: ICD-10; Not Available [facility] 3 05:54:07 Preopera tive cardiova scular examinat ion Completed 202112/18/2021 Problem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
--- OUTSIDE RECORDS SUMMARY | 2024-05-18 10:29 | XMS_ITS | Encounter Summary ---
Author Organization [facility] [place] [address] Care Team Providers Care Agricultural Technician Name Role Phone Ana Her MD Primary Care Provider [phone] Encounter Details Date Type Department Care Team (Latest Contact Info) Description 04/03/2022 12:00 PM EST TH Visit (TeleHealth) [place] [address] Laura Will MD [facility] [place] [address] Status post repair of paraesophageal diaphragmatic hernia [...] status documented in this encounter Care Teams Agricultural Technician Relationship Specialty Start Date End Date Ana Her MD [facility] [address] [place] [address] PCP - General 07/29/13 documented as of this encounter
--- OUTSIDE RECORDS SUMMARY | 2024-05-18 10:29 | XMS_ITS | Clinical Summary ---
Author Organization [facility] [place] [address] Care Team Providers Care Economic Development Coordinator Name Role Phone Ana Her MD Primary Care Provider [phone] Allergies No known active allergies Medications Medication [...] the eliquis and has been managed by [facility]. She has remained in Afib over [...] and ECG with Dr. Ana Her in [place] in January She will discuss ECHO results [...] - TT3 and FT4 nl - My ELECTRONIC HEALTH RECORDS SPECIALIST colleague called and spoke with covering MD [...] Comments Hepatitis C Screening 08/16/1963 Pneumoccocal Vaccine: 50+ (1 of 2 - PCV) 1964 Tetanus/Diphtheria/Pertussis [...] history exists Medical Devices Implanted Type Area Physician Assistant Surgery Device Identifier Shelf Expiration Date Model / Serial / Lot Breast Clip-02/26/20 17 Implanted: by Enzo Burkett MD (Quantity not on file) Breast Clip Left: Breast Bard - 0614 05/04/2019 S[employer]OMARK ULTRACOR BREAST TISSUE MARKER ULTRASOUND ENHANCED BLANCA / / [id number] Description:BLANCA Procedures Procedure Name Priority Date/Time Associated [...] have questions please contact the health manager critical care that requested your imaging first. ? Jeanine Lobato MANAGER BOOK IMG MAMMO ORD ERABLES * DXA Central [...] BMD measurements and plots are available in [email or web address][employer] under the imaging tab. Paper copies will be sent to providers without E-MuckRock access. If you have received this report without the data sheet and do not have access to [employer], please contact Radiology Refrigeration Lead at [phone] Thursday thru Thursday 8am-4pm. Thank you for letting us participate in the care of this patient. ??If you are a health care provider and have any questions regarding this report, please contact the number below. ??For patients who have questions please contact the health manager critical care that requested your imaging first. ? [...] BMD measurements and plots are available in EPrimcogent Solutionsunder the imaging tab. Paper copies will be sent to providers without E- access.If you have received this report without the data sheet and do not haveaccess to E-, please contact Radiology Refrigeration Lead at [phone] Thursday thrriday 8am-4pm. Thank you for letting us participate in the care of this patient. If youare a health care provider and have any questions regarding this report,please contact the number below. For patients who have questions please contactthe health manager critical care that requested your imaging first. Ricky [...] Status decision made by: Patient Care Teams Economic Development Coordinator Relationship Specialty Start Date End Date Ana Her MD [facility] [address] [place] [address] PCP - General 07/29/13
--- OUTSIDE RECORDS SUMMARY | 2024-05-18 10:29 | XMS_ITS | Encounter Summary ---
[place] [address] Care Team Providers Care Steam Cleaning Machine Operator Name Role Phone Ana Her MD Primary Care Provider [phone] Encounter Details Date Type Department Care Team (Late st Contact Info) Description 10/23/2022 Telephone Mammography/[place] [phone] Aby Loredo Social History Tobacco Use Types [...] filedocumented in this encounter Care Teams Steam Cleaning Machine Operator Relationship Specialty Start Date End Date Ana Her MD [address] [place] [address] PCP - General 07/29/13 documented as of this encounter
--- OUTSIDE RECORDS SUMMARY | 2024-05-18 10:30 | XMS_ITS | Encounter Summary ---
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 Mother had no cancer. Interval Hx/ROS: Digan is here for 6-month follow-up. She continues [...] on RA Breasts: deferred (examined by surgery POLYMER TESTER today) Neuro: grossly nonfocal. Results: Last DXA [...] GI Cancers [facility] Pager - [phone] No future appointments. documented in this encounter Plan of Treatment Not on file documented as of this encounter Visit Diagnoses Diagnosis Malignant neoplasm of lower-outer quadrant of left breast of female, estrogen receptor positive half-way current 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 inhibitor Use of aromatase inhibitors documented in this encounter Care Teams Director Of Officiating Relationship Specialty Start Date End Date Ana Her MD [address] [place] [address] PCP - General 07/29/13 documented as of this encounter
--- OUTSIDE RECORDS SUMMARY | 2024-05-18 10:30 | XMS_ITS | Encounter Summary ---
Author Organization [facility] Address [facility] [place] [address] Care Team Providers Care Attractions Associate Name Role Phone Ana Her MD Primary Care Provider [phone] Encounter Details Date Type Department Care Team (Late st Contact Info) Description 09/03/2021 Ancillary Procedure Radiology Library [place] [address] Laura Will MD [facility] [place] [address] Social History Tobacco Use Types Packs/Day Years [...] CT Chest (09/03/2021 12:00 AM EDT) Narrative [facility] - 11/28/2021 1:22 PM EDT This exam is auto-finalizing. It's purpose is for storage only. Laura Will MD IMG FILM LIBRARY OR DERABLES Performing Organization Address City/State/[facility] Co de Phone Number [place], [place] documented in this encounter Visit Diagnoses Not on filedocumented in this encounter Care Teams Attractions Associate Relationship Specialty Start Date End Date Ana Her MD [address] [facility] [address] [place] [address] PCP - General 07/29/13 documented as of this encounter
--- OUTSIDE RECORDS SUMMARY | 2024-05-18 10:30 | XMS_ITS | Encounter Summary ---
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 Procedures DXA Central Spine, Hip, and/or Whole Body (Generic) Ricky Lowry MD [facility] HEMATOLOGY/[place] [address] [facility] Rad Xray [address] [place] [address] [place] [address] Referral ID Status Reason Start Date Expiration Date V isits Requested Visits Authorized [id number] Closed Specialty Service Requested 05/22/2020 11/19/2021 1 [...] and/or Whole Body (Generic) Ricky Lowry MD [facility] HEMATOLOGY/[place] [address] [facility] Rad Xray [address] [place] [address] Dr [place] briscoe [address] Referral ID Status Reason Start Date Expiration Date V isits Requested Visits Authorized [id number] Closed Specialty Service Requested 05/22/2020 11/19/2021 1 1 Encounter Details Date Type Department Care Team (Latest Contact Info) Description 11/15/2020 2:25 PM EDT - 11/15/2020 11:59 PM EDT Hospital Encounter XRay at [address] [place] [address] Ricky Lowry MD Malignant neoplasm of lower-outer quadrant of left breast of female, estrogen receptor positive; Osteopenia of neck of femur, unspecified laterality; 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 Paper copies will be sent to providers without E- access. If you have received this report without the data sheet and do not have access to [employer], please contact Radiology Security Operations Analyst at [phone] Thursday thru Thursday 8am-4pm. Thank you for letting us participate in the care of this patient. ??If you are a health care provider and have any questions regarding this report, please contact the number below. ??For patients who have questions please contact the health animal care attendant that requested your imaging first. ? Electronically signed by: Nat Epperson MD, [facility] ([phone]), at 11/19/2020 1:09 PM Narrative 11/19/2020 1:09 [...] BMD measurements and plots are available in EIPTEGOunder the imaging tab. Paper copies will be sent to providers without - access.If you have received this report without the data sheet and do not haveaccess to [facility], please contact Radiology Security Operations Analyst at [phone] Thursday thrrid 8am-4pm. Thank you for letting us participate in the care of this patient. If youare a health care provider and have any questions regarding this report,please contact the number below. For patients who have questions please contactthe health animal care attendant that requested your imaging first. 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
--- OUTSIDE RECORDS SUMMARY | 2024-05-18 10:30 | XMS_ITS | Encounter Summary ---
[place] [address] Care Team Providers Care Other Sports Coach Or Instructor Name Role Phone Ana Her MD Primary Care Provider [phone] Encounter Details Date Type Department Care Team (Late st Contact Info) Description 02/04/2022 12:00 PM EDT Notes [place] [address] Social History Tobacco Use Types Packs/Day Years [...] on filedocumented in this encounter Care Teams Other Sports Coach Or Instructor Relationship Specialty Start Date End Date Ana Her MD [address] [place] [address] PCP - General 07/29/13 documented as of this encounter
--- OUTSIDE RECORDS SUMMARY | 2024-05-18 10:30 | XMS_ITS | Encounter Summary ---
Author Organization [facility] [place] [address] Care Team Providers Care Commercial Driver'S License Driver Name Role Phone Ana Her MD Primary Care Provider [phone] Reason for Visit * Consultation (Routine) - Closed Specialty Diagnoses / Procedures Referred By Christiano hackett Referred To Contact General Surgery Diagnoses Hiatal hernia Ana Her MD [address] [place] [address] [facility] Gen Surgery [address] [place] [address] Referral ID Status Reason Start Date Expiration Date V isits Requested Visits Authorized [id number] Closed Consult, Test & Treat 09/23/2021 09/23/2022 6 6 Encounter Details Date Type Department Care Team (Latest Contact Info) Description 12/05/2021 3:00 PM EDT Office [place] [address] Laura Will MD [facility] [place] [address] Paraesophageal hernia Social History Tobacco [...] of left breast of female, estrogen receptor sscyucciV00.512, Z17.0 ??? Anemia D64.9 ??? Aortic valve [...] gangrene documented in this encounter Care Teams Commercial Driver'S License Driver Relationship Specialty Start Date End Date Ana Her MD [address] [place] [address] PCP - General 07/29/13 documented as of this encounter
--- OUTSIDE RECORDS SUMMARY | 2024-05-18 10:30 | XMS_ITS | Encounter Summary ---
Author Organization [facility] [place] [address] Care Team Providers Care Lab Director Name Role Phone Ana Her MD Primary Care Provider [phone] Reason for Visit * Reason Comments Advice Only BBR * Consultation (Routine) - Closed Specialty Diagnoses / Procedures Referred By Christiano hackett Referred To Contact Plastic Surgery Diagnoses Malignant neoplasm of lower-outer quadrant of left breast of female, estrogen receptor positive Macromastia Jeanine Lobato APRN [facility] [place] [address] [facility] Plastic Surg [address] [place] [address] Referral ID Status Reason Start Date Expiration Date V isits Requested Visits Authorized [id number] Closed Consult, Test & Treat 06/11/2021 06/11/2022 1 1 Encounter Details Date Type Department Care Team (Late st Contact Info) Description 07/09/2021 8:30 AM EST Office [place] [address] Med Hudson MD [facility] [place] [address] Macromastia Social History Tobacco Use [...] physical with your primary care doctor and Pigment Processor clearance Two Weeks prior to Surgery Do [...] Day of Surgery You will need a stacker driver. If you do not have a stacker driver, your surgery will be canceled. DO [...] For questions pertaining to your surgical date [phone] For nursing related questions [phone] On weekends, holidays or after office hours: Call and ask the transit coach operator to page the Plastic Surgery Resident police officer crime prevention. documented in this encounter Progress Notes * [...] and was normal. This was performed at [facility]. She has completed a breast specific questionnaire: [...] None of the time Conservative Therapy Treatments: [facility] CONSERVATIVE THERAPY TREATMENTS 07/09/2021 Physical [...] MD at [facility] MAIN OR Family History Problem Relation [...] revisions for scarring or asymmetry.) Garcia or [place] Pattern Incision: More scarring on breast, but [...] Timeframe: Elective Procedure: Bilateral breast reduction CPT: 50969 Surgical Technique: Garcia, Pedicle Surgical site: Breasts Side: Bilateral Anesthesia: General Follow up: 1 day for drain removal; 7-10 days for HCK PAT: H+P PCP, Cardiac clearance. Need to discontinue blood thinners pre-op? Xarelto documented in this encounter Plan of Treatment Not on file documented as of this encounter Visit Diagnoses Diagnosis Macromastia Hypertrophy of breast documented in this encounter Care Teams Lab Director Relationship Specialty Start Date End Date Ana Her MD [address] [place] [address] PCP - General 07/29/13 documented as of this encounter
--- OUTSIDE RECORDS SUMMARY | 2024-05-18 10:30 | XMS_ITS | Encounter Summary ---
Author [place] [address] Care Team Providers Care Lockstitch Front Maker Name Role Phone Ana Her MD Primary Care Provider [phone] Encounter Details Date Type Department Care Team (Late st Contact Info) Description 01/08/2022 7:30 AM EDT - 01/08/2022 8:40 AM EDT Surgery [place] [address] [facility] [place] [address] EGD, UPPER GI ENDOSCOPY (WRVU 2.09) Social [...] a nurse in the Thoracic Clinic at [phone]. After hours or on weekends or holidays please call: [phone] and ask to speak to the Thoracic Physician hospital personnel director. Diet: You should follow a clear liquid [...] - 5pm): General Surgery and Bariatric Surgery [phone] Bariatric Surgeons: Drs. Park and John [phone] Transcript Clerk: [phone] Dietitians: [phone] Outside of regular business hours, including weekends and holidays: Ask for General Surgery resident hospital personnel director [phone] Please note, this call will be answered [...] of left breast of female, estrogen receptor febhmdgyF18.512, Z17.0 ??? Anemia D64.9 ??? Aortic valve [...] 6.43) performed by Malika Chen MD at [facility] MAIN OR ??? PRO INTRAOP SENTINEL LYMPH ID W/DYE INJECTION Left 03/30/2017 ?? INTRAOPERATIVE ID (MAPPING) SENTINEL LYMPH NODE,INCLUDES INJECTION (WRVU 2.5) performed by Malika Chen MD at [facility] MAIN OR ??? PRO MASTECTOMY PARTIAL Left 03/30/2017 ?? MASTECTOMY PARTIAL (WRVU 10.13) performed by Malika Chen MD at [facility] MAIN OR ?? Cholecystectomy ?? [...] Park MD - 01/08/2022 7:48 AM EDT [facility] Operative Note Patient Name: Digna Olson : [id number] MR#: [id number] Case Date: 01/08/2022 Surgeon: Surgeon(s) and Role: [...] Info Order Time SPECIMEN TO PATHOLOGY Gastric Bandera for H Pylori Hiatal hernia Gastric Bandera for H Pylori excision 01/08/2022 8:15 AM [...] 8:14 AM EDT Upper GI Endoscopy, Diagnostic (34610) Yes 01/08/2022 7:40 AM EDT Hiatal hernia [...] PATHOLOGY/CYTOLOGY ORDERABLES [facility] [place] [address] * Surgical Pathology Report (01/08/2022 8:14 AM EDT) Final Diagnosis [id number] ? Location: SDP; SD36; A The signing pathologist has (i) examined the relevant preparation(s) for the specimen(s) and (ii) rendered or confirmed the diagnosis(es). . ?Surgical Pathology DIAGNOSIS A - Gastric ??Antrum for H Pylori, excision: - ??Antrum-type mucosa with reactive gastropathy. Electronically signed by: ?Umang Raymundo MD Verified: ??01/09/2022 16:36 ??Pathologist Performed at: ??-[facility] Dept. of Pathology, [place], [place] SPECIMEN(S) SUBMITTED A - Gastric ??Antrum [...] Park MD PATHOLOGY/CYTOLOGY ORDERABLES Performing Organization Address City/State/[facility] Co de Phone Number [facility] [place] [address] * POCT Glucose (01/08/2022 6:33 AM EDT) Glucose, POC 120 65 - 199 mg/dL [facility] Comment: Supplemental ranges: <140 mg/dL before meals <180 mg/dL all other times of the day Blood 01/08/2022 6:33 AM EDT 01/08/2022 6:33 AM EDT Laura Park MD POINT [place] [address] documented in this encounter Visit Diagnoses Not on filedocumented in this encounter Active and Recently Administered Medications Care Teams Lockstitch Front Maker Relationship Specialty Start Date End Date Ana Her MD [address] [facility] [address] [place] [address] PCP - General 07/29/13 documented as of this encounter
--- OUTSIDE RECORDS SUMMARY | 2024-05-18 10:30 | XMS_ITS | Encounter Summary ---
[place] [address] Care Team Providers Care Process Development Manager Name Role Phone Ana Her MD Primary Care Provider [phone] Encounter Details Date Type Department Care Team (Late st Contact Info) Description 12/17/2021 Telephone [place] [address] Roma Estrada RN Social History Tobacco Use [...] on filedocumented in this encounter Care Teams Process Development Manager Relationship Specialty Start Date End Date Ana Her MD [address] [place] [address] PCP - General 07/29/13 documented as of this encounter
--- OUTSIDE RECORDS SUMMARY | 2024-05-18 10:30 | XMS_ITS | Encounter Summary ---
Author Organization [facility] [place] [address] Care Team Providers Care Toaster Element Repairer Name Role Phone Ana Her MD Primary Care Provider [phone] Encounter Details Date Type Department Care Team (Latest Contact Info) Description 01/08/2022 6:11 AM EDT - 01/08/2022 9:40 AM EDT Hospital En[place] [id number] Laura Park MD [facility] [place] [address] Discharge Disposition: Home Social History Tobacco Use [...] a nurse in the Thoracic Clinic at [phone]. After hours or on weekends or holidays please call: [phone] and ask to speak to the Thoracic Physician instructional media services technician. Diet: You should follow a clear [...] - 5pm): General Surgery and Bariatric Surgery [phone] Bariatric Surgeons: Drs. Park and John [phone] Pressure Vessel Inspector: [phone] Dietitians: [phone] Outside of regular business hours, including weekends and holidays: Ask for General Surgery resident instructional media services technician [phone] Please note, this call will be answered [...] of left breast of female, estrogen receptor [id number], Z17.0 ??? Anemia D64.9 ??? Aortic valve [...] 6.43) performed by Malika Chen MD at [facility] MAIN OR ??? PRO INTRAOP SENTINEL LYMPH ID W/DYE INJECTION Left 03/30/2017 ?? INTRAOPERATIVE ID (MAPPING) SENTINEL LYMPH NODE,INCLUDES INJECTION (WRVU 2.5) performed by Malika Chen MD at [facility] MAIN OR ??? PRO MASTECTOMY PARTIAL Left 03/30/2017 ?? MASTECTOMY PARTIAL (WRVU 10.13) performed by Malika Chen MD at [facility] MAIN OR ?? Cholecystectomy ?? Medications: [...] Operative Note Patient Name: Digna Olson : [id number] MR#: [id number] Case Date: 01/08/2022 Surgeon: Surgeon(s) and Role: [...] Info Order Time SPECIMEN TO PATHOLOGY Gastric [place] for H Pylori Hiatal hernia Gastric [place] for H Pylori excision 01/08/2022 8:15 AM [...] 8:14 AM EDT Upper GI Endoscopy, Diagnostic (05518) Yes 01/08/2022 7:40 AM EDT Hiatal hernia [...] MD PATHOLOGY/CYTOLOGY ORDERABLES [facility] [place] [address] * Surgical Pathology Report (01/08/2022 8:14 AM EDT) Final Diagnosis [id number] ? Location: [facility]; A The signing pathologist has (i) examined the relevant preparation(s) for the specimen(s) and (ii) rendered or confirmed the diagnosis(es). . ?Surgical Pathology DIAGNOSIS A - Gastric ??Antrum for H Pylori, excision: - ??Antrum-type mucosa with reactive gastropathy. Electronically signed by: ?Umang Raymundo MD Verified: ??01/09/2022 16:36 ??Pathologist Performed at: ??-[facility] Dept. of Pathology, [place], [place] SPECIMEN(S) SUBMITTED A - Gastric ??Antrum [...] MD PATHOLOGY/CYTOLOGY ORDERABLES [facility] [place] [address] * POCT Glucose (01/08/2022 6:33 AM EDT) Glucose, POC 120 65 - 199 mg/dL [facility] Comment: Supplemental ranges: <140 mg/dL before meals <180 mg/dL all other times of the day Blood 01/08/2022 6:33 AM EDT 01/08/2022 6:33 AM EDT Laura Park MD POINT [place] [address] documented in this encounter Visit Diagnoses Not on filedocumented in this encounter Active and Recently Administered Medications Care Teams Toaster Element Repairer Relationship Specialty Start Date End Date Ana Her MD [address] [place] [address] PCP - General 07/29/13 documented as of this encounter
--- OUTSIDE RECORDS SUMMARY | 2024-05-18 10:30 | XMS_ITS | Encounter Summary ---
[place] [address] Care Team Providers Care Fulling Machine Operator Name Role Phone Ana Her MD Primary Care Provider [phone] Reason for Visit * Auth/Cert Specialty Diagnoses / Procedures Referred By Christiano hackett Referred To Contact Diagnoses S/P repair of paraesophageal hernia Post-Op monitoring Procedures PRO LAPARSCOPY REPAIR PARAESOPHAGEAL HERNIA INCL FUNDOPLASTY W/O MESH LAPAROSCOPIC PARAESOPHAGEAL HERNIA REPAIR W/FUNDOPLASTY, W/O MESH (WRVU 26.6) MODIFIER TOUPET FUNDOPLASTY Shania Will MD [facility] [place] [address] [facility] Referral ID Status Reason Start Date Expiration Date Visits Re quested Visits Authorized [id number] 1 1 Encounter Details Date Type Department Care Team (Latest Contact Info) Description 03/05/2022 11:55 AM EDT - 03/07/2022 10:00 AM EDT Hospital Encounter [place] [phone] Shania Will MD [facility] [place] [address] Discharge Disposition: Home Social History Tobacco Use [...] of left breast of female, estrogen receptor [id number], Z17.0 ??? Anemia D64.9 ??? Aortic valve [...] Per chart review, her creatinine levels in [id number] ranged from 0.87-1.50 indicative of possible undiagnosed [...] PM Shania Will MD General Surgery at [facility] Arrive at: Information Security Manager Area [phone] Instructions Given to Patient at Discharge: Patient [...] hours please call the Surgery Clinic at [phone] before 5 PM on weekdays. For questions after hours and on weekends please call the hospital channeling machine operator at [phone] and ask for the General Surgery resident exchange underwriting consultant. They may not be familiar with [...] post Sly diet, as instructed by the fisher lobster in the hospital for a period of [...] renal function. Please call the clinic at [phone] to confirm or reschedule. Future Appointments Date Time Provider Department Center 04/03/2022 12:00 PM Shania Will MD [facility] SURG [facility] General Instructions None Future Appointments and Orders Future Appointments and Orders Future Appointments Provider Department Dept Phone 04/03/2022 12:00 PM Shania Will MD General Surgery at [facility] Arrive at: Information Security Manager Area Signed: Shena Harden MD 03/07/22 7:18 AM [facility] 2026 Primary [place] Physician: MD Geovany David DR [facility] [address] documented in this encounter Discharge Instructions * [...] hours please call the Surgery Clinic at [phone] before 5 PM on weekdays. For questions after hours and on weekends please call the hospital channeling machine operator at [phone] and ask for the General Surgery resident exchange underwriting consultant. They may not be familiar with [...] post Sly diet, as instructed by the fisher lobster in the hospital for a period of [...] renal function. Please call the clinic at [phone] to confirm or reschedule. Future Appointments Date Time Provider Department Center 04/03/2022 12:00 PM Shania Will MD [facility] SURG [facility] documented in this encounter Medications at [...] Ocampo RN - 03/07/2022 10:25 AM EDT [facility] Short Stay Unit Discharge Note All [...] Sly Diet Education to pt Digna Olson. Designer metwith pt at bedside to deliver full [...] she is noticing some overall improvement post op.Designer took note of this and encouraged the [...] Department contact information provided. Pt appreciate of com writer's time. Nutrition to follow as needed. [...] Perez MD 03/05/2022 Minimally Invasive Surgery Pager #[phone] * Lorrie Slater RN - 03/05/2022 6:46 [...] ?? She is followed by cardiology at [facility], and is on xarelto. ?? Impression: ??Symptomatic [...] of left breast of female, estrogen receptor [id number], Z17.0 ??? Anemia D64.9 ??? Aortic valve [...] Chen MD at [facility] MAIN OR ?? Cholecystectomy ?? Medications: [...] Operative Note Patient Name: Digna Olson : [id number] MR#: [id number] Case Date: 03/05/2022 Surgeon: Surgeon(s) and Role: [...] Flores MD - 03/05/2022 2:32 PM EDT [facility] Operative Note Patient Name: Digna Olson : [id number] MR#: [id number] Case Date: 03/05/2022 Surgeon: Surgeon(s) and Role: [...] Repair Paraesophageal Hernia Incl Fundoplasty W/O Mesh ([id number]) 03/05/2022 1:58 PM EDT Paraesophageal Hernia POCT GLUCOSE Routine 03/05/2022 12:18 PM EDT LAPAROSCOPIC PARAESOPHAGEAL HERNIA REPAIR W FUNDOPLASTY, W/O MESH Routine 03/05/2022 12:02 PM EDT documented in this encounter Results * (ABNORMAL) Differential, Automated (03/07/2022 5:08 AM EDT) Neutrophil % 80.0 % [facility] Neutrophil Absolute 5.30 1.70 - 6.10 x10(3)/mc L [facility] Lymph % 12.1 % [facility] Lymphocytes Abs 0.8(L) 0.9 - 3.2 x10(3)/mc L [facility] Monocyte % 7.6 % [facility] Monocyte Abs 0.5 0.3 - 0.9 x10(3)/mc L [facility] Eos % 0.0 % [facility] Eosinophils Abs 0.0 0.0 - 0.4 x10(3)/mc L [facility] Basophil % 0.0 % [facility] Baso Absolute 0.0 0.0 - 0.1 x10(3)/[facility] Immature Gran % 0.30 % [facility] Comment: Immature granulocytes(IG's)percentage and absolute count will include metamyelocytes, myelocytes, and promyelocytes. Blood smears from CBCs yielding IG's will be scanned manually for concordance. If this scan disagrees with the automated IG or if promyelocytes are noted, a manual differential will be performed. Immature Gran Absolute 0.02 0.00 - 0.04 x10(3)/[facility] Blood 03/07/2022 5:08 AM EDT 03/07/2022 5:19 AM EDT Narrative Resulting Agency Comment Spec In Lab Nino Levy MD HEMATOLOGY ORDERABLE S Performing Organization Address City/State/[facility] Co de Phone Number [facility] [place] [address] * (ABNORMAL) Hemogram (03/07/2022 5:08 AM EDT) White Blood Cell 6.6 4.0 - 9.5 x10(3)/[facility] Red Blood Cell 3.16(L) 4.00 - 5.21 x10(6)/[facility] Hemoglobin 10.7(L) 11.7 - 15.5 g/dL [facility] Hematocrit 31.7(L) 35.7 - 45.8 % [facility] Mean Cell Volume 100.3(H) 82.6 - 94.4 fL [facility] Mean Cell Hemoglobin 33.9(H) 27.1 - 32.0 pg [facility] Mean Cell Hemoglobin Concentration 33.8 31.7 - 35.0 g/dL [facility] Platelet 110(L) 145 - 357 x10(3)/[facility] RDW Standard Deviation 47.5(H) 37.0 - 46.0 fL [facility] RDW coefficient of variation 12.9 11.5 - 14.1 % [facility] Mean Platelet Volume 11.7 7.6 - 12.9 fL [facility] NRBC% auto 0.0 % [facility] NRBC Absolute 0.000 0.000 - 0.000 x10(3)/mc L [facility] Blood 03/07/2022 5:08 AM EDT 03/07/2022 5:19 AM EDT Narrative Resulting Agency Comment Spec In Lab Nino Levy MD HEMATOLOGY ORDERABLE S [facility] [place] [address] * Phosphorus (03/07/2022 5:08 AM EDT) Phosphorus 2.7 2.5 - 4.5 mg/dL [facility] Blood 03/07/2022 5:08 AM EDT 03/07/2022 5:19 AM EDT Narrative Resulting Agency Comment Spec In Lab Shania Will MD CHEMISTRY ORDERABLE S Performing Organization Address City/[facility]/ZIP Co de Phone Number [facility] [place] [address] * Magnesium (03/07/2022 5:08 AM EDT) Magnesium 0.89 0.69 - 1.07 mmol/L [facility] Blood 03/07/2022 5:08 AM EDT 03/07/2022 5:19 AM EDT Narrative Resulting Agency Comment Spec In Lab Shania Will MD CHEMISTRY ORDERABLE S [facility] [place] [address] * (ABNORMAL) Basic Metabolic Panel (non-fasting) (03/07/2022 5:08 AM EDT) Glucose 111 65 - 199 mg/dL [facility] Comment:Diabetes: >=200 mg/d L plus symptoms Blood Urea Nitrogen 22(H) 8 - 18 mg/dL [facility] Creatinine 0.93 0.70 - 1.20 mg/dL [facility] Sodium 131(L) 135 - 145 mmol/L [facility] Potassium 4.5 3.5 - 5.0 mmol/L [facility] Comment: Please note: ??Patients with WBC >100,000 may have falsely elevated Potassium levels. ??For accurate Potassium quantification in these patients send serum separator tube (gold top) for subsequent determinations. ??Contact the Clinical Chemistry Laboratory if there are any questions. Chloride 100 98 - 107 mmol/L [facility] Carbon Dioxide 22 22 - 31 mmol/L [facility] Anion Gap 9 5 - 15 mmol/L [facility] Calcium 9.2 8.5 - 10.5 mg/dL [facility] Est Glomerular Filtration Rate 64 >=60 mL/min/1. 73 m?? [facility] Comment: This patient's estimated [...] Lab Shania Will [place] [address] * (ABNORMAL) Differential, Automated (03/06/2022 10:15 AM EDT) Pathologist [facility] Neutrophil % 90.7 % [facility] Neutrophil Absolute 5.79 1.70 - 6.10 x10(3)/ L [facility] Lymph % 5.0 % [facility] Lymphocytes Abs 0.3(L) 0.9 - 3.2 x10(3)/ L [facility] Monocyte % 3.8 % [facility] Monocyte Abs 0.2(L) 0.3 - 0.9 x10(3)/[facility] Eos % 0.0 % [facility] Eosinophils Abs 0.0 0.0 - 0.4 x10(3)/[facility] Basophil % 0.0 % [facility] Baso Absolute 0.0 0.0 - 0.1 x10(3)/ L [facility] Immature Gran % 0.50 % [facility] Comment: Immature granulocytes(IG's)percentage and absolute count will include metamyelocytes, myelocytes, and promyelocytes. Blood smears from CBCs yielding IG's will be scanned manually for concordance. If this scan disagrees with the automated IG or if promyelocytes are noted, a manual differential will be performed. Immature Gran Absolute 0.03 0.00 - 0.04 x10(3)/ L [facility] Blood 03/06/2022 10:1 5 AM EDT 03/06/2022 10:21 AM EDT Narrative Resulting Agency Comment Spec In Lab Maryam MUE[place] [address] * (ABNORMAL) Hemogram (03/06/2022 10:15 AM EDT) White Blood Cell 6.4 4.0 - 9.5 x10(3)/mc L [facility] Red Blood Cell 3.07(L) 4.00 - 5.21 x10(6)/mc L [facility] Hemoglobin 10.5(L) 11.7 - 15.5 g/dL [facility] Hematocrit 31.1(L) 35.7 - 45.8 % [facility] Mean Cell Volume 101.3(H) 82.6 - 94.4 fL [facility] Mean Cell Hemoglobin 34.2(H) 27.1 - 32.0 pg [facility] Mean Cell Hemoglobin Concentration 33.8 31.7 - 35.0 g/dL [facility] Platelet 111(L) 145 - 357 x10(3)/ L [facility] RDW Standard Deviation 47.2(H) 37.0 - 46.0 fL [facility] RDW coefficient of variation 12.9 11.5 - 14.1 % [facility] Mean Platelet Volume 11.5 7.6 - 12.9 fL [facility] NRBC% auto 0.0 % [facility] NRBC Absolute 0.000 0.000 - 0.000 x10(3)/mc L [facility] Blood 03/06/2022 10:1 5 AM EDT 03/06/2022 10:21 AM EDT Narrative Resulting Agency Comment Spec In Lab Maryam MUELLER HEMATOLOGY ORDERABL ES [facility] [place] [address] * Phosphorus (03/06/2022 10:15 AM EDT) Phosphorus 3.3 2.5 - 4.5 mg/dL [facility] Blood 03/06/2022 10:1 5 AM EDT 03/06/2022 10:21 AM EDT Narrative Resulting Agency Comment Spec In Lab Shania Will MD CHEMISTRY ORDERABLE S Performing Organization Address City/[facility]/ZIP Co de Phone Number [facility] [place] [address] * Magnesium (03/06/2022 10:15 AM EDT) Magnesium 0.69 0.69 - 1.07 mmol/L [facility] Blood 03/06/2022 10:1 5 AM EDT 03/06/2022 10:21 AM EDT Narrative Resulting Agency Comment Spec In Lab Shania Will MD CHEMISTRY ORDERABLE S Performing Organization Address [facility] Co de Phone Number [facility] [place] [address] * (ABNORMAL) Basic Metabolic Panel (non-fasting) (03/06/2022 10:15 AM EDT) Pathologist [facility] Glucose 155 65 - 199 mg/dL [facility] Comment:Diabetes: >=200 mg/d L plus symptoms Blood Urea Nitrogen 29(H) 8 - 18 mg/dL [facility] Creatinine 1.25(H) 0.70 - 1.20 mg/dL [facility] Sodium 134(L) 135 - 145 mmol/L [facility] Potassium 4.8 3.5 - 5.0 mmol/L [facility] Comment: Please note: ??Patients with WBC >100,000 may have falsely elevated Potassium levels. ??For accurate Potassium quantification in these patients send serum separator tube (gold top) for subsequent determinations. ??Contact the Clinical Chemistry Laboratory if there are any questions. Chloride 101 98 - 107 mmol/L [facility] Carbon Dioxide 23 22 - 31 mmol/L [facility] Anion Gap 10 5 - 15 mmol/L [facility] Calcium 8.9 8.5 - 10.5 mg/dL [facility] Est Glomerular Filtration Rate 45(L) >=60 mL/min/1. 73 m?? [facility] Comment: This patient's estimated [...] CHEMISTRY ORDERABLE S Performing Organization Address City/State/[facility] Co de Phone Number [facility] [place] [address] * (ABNORMAL) Differential, Automated (03/06/2022 4:29 AM EDT) Neutrophil % 90.5 % [facility] Neutrophil Absolute 4.47 1.70 - 6.10 x10(3)/mc L [facility] Lymph % 6.9 % [facility] Lymphocytes Abs 0.3(L) 0.9 - 3.2 x10(3)/mc L [facility] Monocyte % 2.2 % [facility] Monocyte Abs 0.1(L) 0.3 - 0.9 x10(3)/mc L [facility] Eos % 0.0 % [facility] Eosinophils Abs 0.0 0.0 - 0.4 x10(3)/mc L [facility] Basophil % 0.2 % [facility] Baso Absolute 0.0 0.0 - 0.1 x10(3)/mc L [facility] Immature Gran % 0.20 % [facility] Comment: Immature granulocytes(IG's)percentage and absolute count will include metamyelocytes, myelocytes, and promyelocytes. Blood smears from CBCs yielding IG's will be scanned manually for concordance. If this scan disagrees with the automated IG or if promyelocytes are noted, a manual differential will be performed. Immature Gran Absolute 0.01 0.00 - 0.04 x10(3)/ L [facility] Blood 03/06/2022 4:29 AM EDT 03/06/2022 4:49 AM EDT Narrative Resulting Agency Comment Spec In Lab Prakash Mendez MD HEMATOLOGY ORDERABLE S [facility] [place] [address] * (ABNORMAL) Hemogram (03/06/2022 4:29 AM EDT) White Blood Cell 4.9 4.0 - 9.5 x10(3)/ L [facility] Red Blood Cell 3.08(L) 4.00 - 5.21 x10(6)/ L [facility] Hemoglobin 10.5(L) 11.7 - 15.5 g/dL [facility] Hematocrit 31.0(L) 35.7 - 45.8 % [facility] Mean Cell Volume 100.6(H) 82.6 - 94.4 fL [facility] Mean Cell Hemoglobin 34.1(H) 27.1 - 32.0 pg [facility] Mean Cell Hemoglobin Concentration 33.9 31.7 - 35.0 g/dL [facility] Platelet 104(L) 145 - 357 x10(3)/ L [facility] RDW Standard Deviation 47.5(H) 37.0 - 46.0 fL [facility] RDW coefficient of variation 12.9 11.5 - 14.1 % [facility] Mean Platelet Volume 11.8 7.6 - 12.9 fL [facility] NRBC% auto 0.0 % [facility] NRBC Absolute 0.000 0.000 - 0.000 x10(3)/mc L [facility] Blood 03/06/2022 4:29 AM EDT 03/06/2022 4:49 AM EDT Narrative Resulting Agency Comment Spec In Lab Prakash Mendez MD HEMATOLOGY ORDERABLE S [facility] [place] [address] * (ABNORMAL) Basic Metabolic Panel (non-fasting) (03/06/2022 4:29 AM EDT) Glucose 140 65 - 199 mg/dL [facility] Comment:Diabetes: >=200 mg/d L plus symptoms Blood Urea Nitrogen 31(H) 8 - 18 mg/dL [facility] Creatinine 1.32(H) 0.70 - 1.20 mg/dL [facility] Sodium 136 135 - 145 mmol/L [facility] Potassium 5.3(H) 3.5 - 5.0 mmol/L [facility] Comment: Please note: ??Patients with WBC >100,000 may have falsely elevated Potassium levels. ??For accurate Potassium quantification in these patients send serum separator tube (gold top) for subsequent determinations. ??Contact the Clinical Chemistry Laboratory if there are any questions. Chloride 103 98 - 107 mmol/L [facility] Carbon Dioxide 23 22 - 31 mmol/L [facility] Anion Gap 10 5 - 15 mmol/L [facility] Calcium 9.0 8.5 - 10.5 mg/dL [facility] Est Glomerular Filtration Rate 42(L) >=60 mL/min/1. 73 m?? [facility] Comment: This patient's estimated [...] Lab Shania Will MD CHEMISTRY ORDERABLE S [facility] [place] [address] * POCT Glucose (03/05/2022 12:18 PM EDT) Glucose, POC 94 65 - 199 mg/dL [facility] Comment: Supplemental ranges: <140 mg/dL before meals <180 mg/dL all other times of the day Blood 03/05/2022 12:1 8 PM EDT 03/05/2022 12:18 PM EDT Shania Will MD POINT OF CARE TEST ORDERABLES Performing Organization Address City/[facility]/ZIP Co de Phone Number [facility] [place] [address] documented in this encounter Visit Diagnoses Diagnosis [...] Minutes 1535 (New Bag - Provider: Olga Ocamop RN)1735 (Stopped - Provider: Olga Ocampo RN) sodium chloride 0.9 % (flush) (BD PosiFlush Normal Saline 0.9) flush 5 mL 5 mL, Intravenous, 2 TIMES DAILY, First dose on Thu03/05/22 at 2145, Until Discontinued, Recovery (Recovery-Hospital Unit), Routine 2222 (Given - Provider: Alyssa Perales RN) 0856 (Given - Provider: Olga Ocampo, CONNIE)2100 (Not Given - Provider: Tamanna iVllalobos LPN - Reason: Contraindicated - Comment: IV [...] Unit) documented in this encounter Care Teams Fulling Machine Operator Relationship Specialty Start Date End Date Ana Her MD [address] [place] [address] PCP - General 07/29/13 documented as of this encounter
--- OUTSIDE RECORDS SUMMARY | 2024-05-18 10:30 | XMS_ITS | Encounter Summary ---
[place] [address] Care Team Providers Care Cash Shortage Investigator Name Role Phone Ana Her MD Primary Care Provider [phone] Encounter Details Date Type Department Care Team (Late st Contact Info) Description 12/24/2021 Telephone [place] [phone] Chelsie Lauren Social History Tobacco Use Types [...] on filedocumented in this encounter Care Teams Cash Shortage Investigator Relationship Specialty Start Date End Date Ana Her MD [address] [place] [address] PCP - General 07/29/13 documented as of this encounter
--- OUTSIDE RECORDS SUMMARY | 2024-05-18 10:30 | XMS_ITS | Encounter Summary ---
[place] [address] Care Team Providers Care Reel And Rewinder Operator Name Role Phone Ana Her MD Primary Care Provider [phone] Encounter Details Date Type Department Care Team (Late st Contact Info) Description 11/01/2021 Telephone [place] [phone] Chelsie Lauren Social History Tobacco Use Types [...] on filedocumented in this encounter Care Teams Reel And Rewinder Operator Relationship Specialty Start Date End Date Ana eHr MD [address] [place] [address] PCP - General 07/29/13 documented as of this encounter
--- OUTSIDE RECORDS SUMMARY | 2024-05-18 10:30 | XMS_ITS | Encounter Summary ---
Author Organization [facility] [place] [address] Care Team Providers Care Lode Miner Blasting Name Role Phone Ana Her MD Primary Care Provider [phone] Encounter Details Date Type Department Care Team (Late st Contact Info) Description 01/08/2022 7:42 AM EDT Anesthesia Event [place] [address] Alisa Naqvi MD [facility] [place] [address] Anesthesia Record Procedure Summary Procedure Name Responsible [...] cephalic vein (lateral side of arm), left; vmsb-zuu-uthdcc catheter system; Anatomical Landmarks; 20 gauge; Joslyn [...] Procedure Summary Date: 01/08/22 Room / Location: [facility] OR [address] [place] [address] MAIN OR Anesthesia Start: 741 Anesthesia Stop: 825 Procedure: EGD, UPPER GI ENDOSCOPY (N/A Trunk) Diagnosis: (Hiatal hernia) Surgeons: Laura Will MD Responsible Provider: Alisa Naqvi MD Anesthesia Type: general ASA Status: 3 All Anesthesia Providers: Anesthesiologist: Alisa Naqvi MD Tower Equipment Installer: Nghia Valerio MD Vitals Value Taken Time BP 98/56 01/08/22 0823 Temp Pulse Resp SpO2 99 % 01/08/22826 Pain Level Vitals shown include unvalidated device data. Patient Location: PACU/[facility] Level of Consciousness: Conscious but [...] of left breast of female, estrogen receptor hujkdzbh56/25/2017 ??? Bicuspid aortic valve 06/10/2016 ??? Dyspnea [...] 6.43) performed by Malika Chen MD at [facility] MAIN OR ??? PRO INTRAOP SENTINEL LYMPH ID W/DYE INJECTION Left 03/30/2017 INTRAOPERATIVE ID (MAPPING) SENTINEL LYMPH NODE,INCLUDES INJECTION (WRVU 2.5) performed by Malika Chen MD at [facility] MAIN OR ??? PRO MASTECTOMY PARTIAL Left 03/30/2017 MASTECTOMY PARTIAL (WRVU 10.13) performed by Malika Chen MD at [facility] MAIN OR Social History Tobacco Use ??? [...] mg documented in this encounter Care Teams Lode Miner Blasting Relationship Specialty Start Date End Date Ana Her MD [facility] [address] [facility] [address] [place] [address] PCP - General 07/29/13 documented as of this encounter
--- OUTSIDE RECORDS SUMMARY | 2024-05-18 10:30 | XMS_ITS | Encounter Summary ---
Author Organization [place] [address] Care Team Providers Care Bankruptcy Manager Name Role Phone Ana Her MD Primary Care Provider [phone] Encounter Details Date Type Department Care Team (Latest Contact Info) Description 06/11/2021 8:41 AM EST - 06/11/2021 11:59 PM [facility] Hospital Encounter Mammography/[place] [phone] Jeanine Lobato APRN [facility] [place] [address] Malignant neoplasm of lower-outer quadrant of left [...] Take 40 mg by mouth daily. omega 4-kkc-ryz-fish-turm salty 417 mg-120 mg- 276 mg-600 mg [...] questions please contact the health animal care taker that requested your imaging first. ? Jeanine Lobato RIB TRIM SEPARATOR IMG MAMMO ORD ERABLES documented in this encounter Visit Diagnoses Diagnosis Malignant neoplasm of lower-outer quadrant of left breast of female, estrogen receptor positive Breast cancer screening by mammogram documented in this encounter Care Teams Bankruptcy Manager Relationship Specialty Start Date End Date Ana Her MD [address] [place] [address] PCP - General 07/29/13 documented as of this encounter
--- OUTSIDE RECORDS SUMMARY | 2024-05-18 10:30 | XMS_ITS | Encounter Summary ---
Author Organization [facility] [place] [address] Care Team Providers Care Substation Designer Name Role Phone Ana Her MD Primary Care Provider [phone] Encounter Details Date Type Department Care Team (Latest Contact Info) Description 01/23/2022 12:15 PM EDT TH Visit (TeleHealth) [place] [address] Laura Will MD [facility] [place] [address] Paraesophageal hernia Social History Tobacco Use Types [...] her. She is followed by cardiology at [facility], and is on xarelto. Impression: Symptomatic paraesophageal [...] gangrene documented in this encounter Care Teams Substation Designer Relationship Specialty Start Date End Date Ana Her MD [address] [facility] [address] [place] [address] PCP - General 07/29/13 documented as of this encounter
--- OUTSIDE RECORDS SUMMARY | 2024-05-18 10:30 | XMS_ITS | Encounter Summary ---
[place] [address] Care Team Providers Care Superintendent Laundry Name Role Phone Ana Her MD Primary Care Provider [phone] Reason for Visit * Auth/Cert Specialty Diagnoses / Procedures Referred By Christiano hackett Referred To Contact Diagnoses S/P repair of paraesophageal hernia Post-Op monitoring Procedures PRO LAPARSCOPY REPAIR PARAESOPHAGEAL HERNIA INCL FUNDOPLASTY W/O MESH LAPAROSCOPIC PARAESOPHAGEAL HERNIA REPAIR W/FUNDOPLASTY, W/O MESH (WRVU 26.6) MODIFIER TOUPET FUNDOPLASTY Laura Will MD [facility] [place] [address] [facility] Referral ID Status Reason Start Date Expiration Date Visits Re quested Visits Authorized [id number] 1 1 Encounter Details Date Type Department Care Team (Late st Contact Info) Description 03/05/2022 1:58 PM EDT Anesthesia Event [place] [phone] Alisa Naqvi MD [facility] [place] [address] Alessia Ramirez [place] [address] Anesthesia Record Procedure Summary Procedure Name Responsible [...] Summary Date: 03/05/22 Room / Location: [address] MAIN OR Anesthesia Start: 8 Anesthesia Stop: 1823 Procedures: LAPAROSCOPIC PARAESOPHAGEAL HERNIA REPAIR W/FUNDOPLASTY, W/O MESH (WRVU 26.6) (N/A Abdomen) MODIFIER TOUPET FUNDOPLASTY (N/A Abdomen) Diagnosis: (Paraesophageal Hernia) Surgeons: Laura Will MD Responsible Provider: Alisa Naqvi MD Anesthesia Type: general ASA Status: 3 All Anesthesia Providers: Anesthesiologist: Brayan Hubbard MD; Alisa Naqvi MD; Dario Franco MD Commodities Clerk: Mo Vance DO Vitals Value Taken Time BP 125/75 03/05/22 1821 Temp Pulse 77 03/05/22 1823 Resp 18 03/05/22 1823 SpO2 100 % 03/05/22 182 Pain Level Vitals shown include unvalidated device data. [facility] Level of Consciousness: Awake and Alert Pain [...] of left breast of female, estrogen receptor rtlyadav26/25/2017 ??? Bicuspid aortic valve 06/10/2016 ??? Dyspnea [...] [facility] ??? PRO UPPER GI ENDOSCOPY, DIAGNOSTIC N/A 01/08/2022 EGD, UPPER GI ENDOSCOPY performed by Laura Will MD at [facility] MAIN OR Social History Tobacco Use ??? [...] 45%. Wall motion normal. ?? Echo 06/19/21 ([facility]): normal biventricular size and function, symmetric [...] PONV ppx Mo Shreyas DO Pinky 03/04/2022 Cleaning Staff Supervisor Pager #[phone] Region - Other Informed Consent: Anesthetic plan [...] 45%. Wall motion normal. ?? Echo 06/19/21 ([facility]): normal biventricular size and function, [...] 1 view ?? Followed by cardiology at [facility], notes under Care Everywhere. Last seen [...] mg documented in this encounter Care Teams Superintendent Laundry Relationship Specialty Start Date End Date Ana Her MD [address] [facility] 1 [place] [address] PCP - General 07/29/13 documented as of this encounter
--- OUTSIDE RECORDS SUMMARY | 2024-05-18 10:30 | XMS_ITS | Encounter Summary ---
[place] [address] Care Team Providers Care Clinical Molecular Geneticist Name Role Phone Ana Her MD Primary Care Provider [phone] Encounter Details Date Type Department Care Team (Late st Contact Info) Description 06/12/2021 Telephone [place] [phone] Chelsie Lauren Social History Tobacco Use Types [...] on filedocumented in this encounter Care Teams Clinical Molecular Geneticist Relationship Specialty Start Date End Date Ana Her MD [address] [place] [address] PCP - General 07/29/13 documented as of this encounter
--- OUTSIDE RECORDS SUMMARY | 2024-05-18 10:30 | XMS_ITS | Encounter Summary ---
Author Organization [facility] [place] [address] Care Team Providers Care Net Developer Name Role Phone Ana Her MD Primary Care Provider [phone] Encounter Details Date Type Department Care Team (Late st Contact Info) Description 03/09/2022 Telephone [place] [address] Prakash Mendez MD [facility] [place] [address] Social History Tobacco Use Types Packs/Day Years [...] the mobile number listed in her chart ([phone]). Her other daughter answered the phone and reported that she had just dropped her off in the Emergency Department at [facility] and parked the car. She was walking back to the building to be with her. I reassured her that going to the Emergency Department seemed like a reasonable plan. I assured her that we are always happy to see her here at [facility] anytime and that they could call back anytime with further questions or concerns. This note will be routed to the provider mentioned above. Prakash Mendez MD documented in this encounter Plan of Treatment Not on file documented as of this encounter Visit Diagnoses Not on filedocumented in this encounter Care Teams Net Developer Relationship Specialty Start Date End Date Ana Her MD [address] [place] [address] PCP - General 07/29/13 documented as of this encounter
--- OUTSIDE RECORDS SUMMARY | 2024-05-18 10:30 | XMS_ITS | Encounter Summary ---
[place] [address] Care Team Providers Care Awning Assembler Name Role Phone Ana Her MD Primary Care Provider [phone] Reason for Visit * Reason Comments Follow-up Encounter Details Date Type Department Care Team (Late st Contact Info) Description 11/15/2020 4:00 PM EDT Office Visit [place] [phone] Laura Joaquin PA Malignant neoplasm of lower-outer [...] ??Excision with image-guided localization ?Lymph Node Sampling: ??[place] lymph node(s) ?Specimen Laterality: ??Left Tumor ?Histologic [...] ??DCIS not present in specimen Lymph Nodes ?[place] Lymph Nodes: [place] lymph node biopsy performed ?Number of [place] Nodes Examined: ??3 ?Number of Lymph Node(s) [...] Spinal stenosis > A Fib. Cardiology at [facility]. S/P successful cardioversion May [...] Medical Oncology - Breast & GI Cancers [facility] Pager - [phone] documented in this encounter Plan of Treatment Not on file documented as of this encounter Visit Diagnoses Diagnosis Malignant neoplasm of lower-outer quadrant of left breast of female, estrogen receptor positive documented in this encounter Care Teams Awning Assembler Relationship Specialty Start Date End Date Ana Her MD [address] [place] [address] PCP - General 07/29/13 documented as of this encounter
--- OUTSIDE RECORDS SUMMARY | 2024-05-18 10:30 | XMS_ITS | Encounter Summary ---
[place] [address] Care Team Providers Care Toe Lining Closer Name Role Phone Ana Her MD Primary Care Provider [phone] Reason for Visit * Reason Comments Follow-up Encounter Details Date Type Department Care Team (Late st Contact Info) Description 05/22/2020 11:40 AM EST Office [place] [address] Jeanine Lobato APRN [facility] [place] [address] Encounter for follow-up surveillance of breast cancer; [...] was obtained which revealed IDC which is ER/[place] positive, Her2 negative. Alma Delia opted against [...] ??Excision with image-guided localization ?Lymph Node Sampling: ??[place] lymph node(s) ?Specimen Laterality: ??Left Tumor ?Histologic [...] ??DCIS not present in specimen Lymph Nodes ?[place] Lymph Nodes: [place] lymph node biopsy performed ?Number of [place] Nodes Examined: ??3 ?Number of Lymph Node(s) [...] available at [employer]) and [employer]. All questions were answered to the patient's satisfaction and they state understanding and agreement with today's treatment plan. They are encouraged to follow up sooner if they develop any new or concerning symptoms. Jeanine Lobato APRN Surgical Oncology P [phone] F [phone] [facility] documented in this encounter Plan of Treatment [...] who have questions please contact the health transitional care manager that requested your imaging first. [...] mammogram documented in this encounter Care Teams Toe Lining Closer Relationship Specialty Start Date End Date Ana Her MD [facility] [address] [place] [address] PCP - General 07/29/13 documented as of this encounter
--- OUTSIDE RECORDS SUMMARY | 2024-05-18 10:30 | XMS_ITS | Encounter Summary ---
[place] [address] Care Team Providers Care Field Machinist Name Role Phone Ana Her MD Primary Care Provider [phone] 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 * Consultation (Routine) - Closed Specialty Diagnoses / Procedures Referred By Christiano hackett Referred To Contact Plastic Surgery Diagnoses Malignant neoplasm of lower-outer quadrant of left breast of female, estrogen receptor positive Macromastia Jenaine Lobato APRN [facility] [place] [address] [facility] [address] [address] Referral ID Status Reason Start Date Expiration Date V isits Requested Visits Authorized [id number] Closed Consult, Test & Treat 06/11/2021 06/11/2022 1 1 Encounter Details Date Type Department Care Team (Late st Contact Info) Description 06/11/2021 10:00 AM EST Office [place] [address] Jeanine Lobato APRN [facility] [place] [address] Encounter for follow-up surveillance of [...] as of this encounter Progress Notes * Jeannie Lobato, SET UP MECHANIC STAMPING MACHINES - 06/11/2021 10:00 AM EST Images from [...] was obtained which revealed IDC which is ER/[place] positive, Her2 negative. Alma Delia opted against [...] mm Grade Intermediate Margins Negative ER Positive ME Positive HER-2 Negative OncotypeDx Recurrence Score N/A [...] Family history of ovarian cancer No Ashkenazi Tenriism heritage No Known genetic mutation Not tested [...] to speak almost daily. He lives in [place] [...] Results: Imaging performed (bilateral mammogram) at [facility] today shows no evidence of malignancy, BIRADS [...] free apps for your cell phone from [employer] ([employer]) and [employer] ([employer]). All questions were answered to the patient's satisfaction and they state understanding and agreement with today's treatment plan. They are encouraged to follow up sooner if they develop any new or concerning symptoms. Jeanine Lobato APRN Surgical Oncology P [phone] F [phone] [facility] documented in this encounter Plan of Treatment [...] documented in this encounter Care Teams Field Machinist Relationship Specialty Start Date End Date Ana Her MD [address] [place] [address] PCP - General 07/29/13 documented as of this encounter
--- OUTSIDE RECORDS SUMMARY | 2024-05-18 10:30 | XMS_ITS | Encounter Summary ---
[place] [address] Care Team Providers Care Lay Midwife Name Role Phone Ana Her MD Primary Care Provider [phone] Reason for Visit * Auth/Cert Specialty Diagnoses / Procedures Referred By Christiano hackett Referred To Contact Diagnoses S/P repair of paraesophageal hernia Post-Op monitoring Procedures PRO LAPARSCOPY REPAIR PARAESOPHAGEAL HERNIA INCL FUNDOPLASTY W/O MESH LAPAROSCOPIC PARAESOPHAGEAL HERNIA REPAIR W/FUNDOPLASTY, W/O MESH (WRVU 26.6) MODIFIER TOUPET FUNDOPLASTY Shania Will MD [facility] [place] [address] [facility] Referral ID Status Reason Start Date Expiration Date Visits Re quested Visits Authorized [id number] 1 1 Encounter Details Date Type Department Care Team (Late st Contact Info) Description 03/05/2022 12:54 PM EDT - 03/05/2022 4:55 PM EDT Surgery [place] [phone] Shania Will MD [facility] [place] [address] LAPAROSCOPIC PARAESOPHAGEAL HERNIA REPAIR W/FUNDOPLASTY, W/O MESH [...] of left breast of female, estrogen receptor fyjjbkmlK58.512, Z17.0 ??? Anemia D64.9 ??? Aortic valve [...] Per chart review, her creatinine levels in 4244-7329 ranged from 0.87-1.50 indicative of possible undiagnosed [...] MD General Surgery at [facility] Arrive at: Sprinkler Tender Area [phone] Instructions Given to Patient at Discharge: Patient [...] hours please call the Surgery Clinic at [phone] before 5 PM on weekdays. For questions after hours and on weekends please call the hospital sweater operator at [phone] and ask for the General Surgery resident production assembly operator. They may not be familiar with [...] post Sly diet, as instructed by the pipe threading machine operator in the hospital for a period [...] renal function. Please call the clinic at [phone] to confirm or reschedule. Future Appointments Date Time Provider Department Center 04/03/2022 12:00 PM Shania Will MD [facility] General Instructions None Future Appointments and Orders Future Appointments and Orders Future Appointments Provider Department Dept Phone 04/03/2022 12:00 PM Shania Will MD General Surgery at [facility] Arrive at: Sprinkler Tender Area 4L [phone] Signed: Shena Harden MD 03/07/22 7:18 AM [phone] Saima Physician: MD Geovany David DR [facility] [id number] documented in this encounter Discharge Instructions * [...] hours please call the Surgery Clinic at [phone] before 5 PM on weekdays. For questions after hours and on weekends please call the hospital sweater operator at [phone] and ask for the General Surgery resident production assembly operator. They may not be familiar with [...] post Sly diet, as instructed by the pipe threading machine operator in the hospital for a period [...] renal function. Please call the clinic at [phone] to confirm or reschedule. Future Appointments Date Time Provider Department Center 04/03/2022 12:00 PM Shania Will MD [facility] documented in this encounter Medications at Time [...] Ocampo RN - 03/07/2022 10:25 AM EDT [facility] Short Stay Unit Discharge Note [...] Sly Diet Education to pt Digna Olson. Consumer Education Specialist metwith pt at bedside to deliver full [...] she is noticing some overall improvement post op.Consumer Education Specialist took note of this and encouraged the [...] Department contact information provided. Pt appreciate of movie writer's time. Nutrition to follow as needed. [...] Perez MD 03/05/2022 Minimally Invasive Surgery Pager #[phone] * Lorrie Slater RN - 03/05/2022 6:46 [...] ?? She is followed by cardiology at [facility], and is on xarelto. ?? Impression: ??Symptomatic [...] of left breast of female, estrogen receptor usnlecgiF16.512, Z17.0 ??? Anemia D64.9 ??? Aortic valve [...] 6.43) performed by Malika Chen MD at [facility] MAIN OR ??? PRO INTRAOP SENTINEL LYMPH ID W/DYE INJECTION Left 03/30/2017 ?? INTRAOPERATIVE ID (MAPPING) SENTINEL LYMPH NODE,INCLUDES INJECTION (WRVU 2.5) performed by Malika Chen MD at [facility] MAIN OR ??? PRO MASTECTOMY PARTIAL Left 03/30/2017 ?? MASTECTOMY PARTIAL (WRVU 10.13) performed by Malika Chen MD at [facility] MAIN OR ?? Cholecystectomy ?? [...] Operative Note Patient Name: Digna Olson : [id number] MR#: [id number] Case Date: 03/05/2022 Surgeon: Surgeon(s) and Role: [...] 03/05/2022 2:32 PM EDT [facility] Operative Note Patient Name: Digna Olson : [id number] MR#: [id number] Case Date: 03/05/2022 Surgeon: Surgeon(s) and Role: [...] Repair Paraesophageal Hernia Incl Fundoplasty W/O Mesh (08258) 03/05/2022 1:58 PM EDT Paraesophageal Hernia POCT GLUCOSE Routine 03/05/2022 12:18 PM EDT LAPAROSCOPIC PARAESOPHAGEAL HERNIA REPAIR W FUNDOPLASTY, W/O MESH Routine 03/05/2022 12:02 PM EDT documented in this encounter Results * (ABNORMAL) Differential, Automated (03/07/2022 5:08 AM EDT) Neutrophil % 80.0 % [facility] Neutrophil Absolute 5.30 1.70 - 6.10 x10(3)/mc L [facility] Lymph % 12.1 % [facility] Lymphocytes Abs 0.8(L) 0.9 - 3.2 x10(3)/mc L [facility] Monocyte % 7.6 % [facility] Monocyte Abs 0.5 0.3 - 0.9 x10(3)/mc L [facility] Eos % 0.0 % [facility] Eosinophils Abs 0.0 0.0 - 0.4 x10(3)/[facility] Basophil % 0.0 % [facility] Baso Absolute 0.0 0.0 - 0.1 x10(3)/[facility] Immature Gran % 0.30 % [facility] Comment: Immature granulocytes(IG's)percentage and absolute count will include metamyelocytes, myelocytes, and promyelocytes. Blood smears from CBCs yielding IG's will be scanned manually for concordance. If this scan disagrees with the automated IG or if promyelocytes are noted, a manual differential will be performed. Immature Gran Absolute 0.02 0.00 - 0.04 x10(3)/[facility] Blood 03/07/2022 5:08 AM EDT 03/07/2022 5:19 AM EDT Narrative Resulting Agency Comment Spec In Lab Nino Levy MD HEMATOLOGY ORDERABLE S [facility] [place] [address] * (ABNORMAL) Hemogram (03/07/2022 5:08 AM EDT) White Blood Cell 6.6 4.0 - 9.5 x10(3)/[facility] Red Blood Cell 3.16(L) 4.00 - 5.21 x10(6)/[facility] Hemoglobin 10.7(L) 11.7 - 15.5 g/dL [...] RDW Standard Deviation 47.5(H) 37.0 - 46.0 [facility] RDW coefficient of variation 12.9 11.5 - 14.1 % [facility] Mean Platelet Volume 11.7 7.6 - 12.9 [facility] NRBC% auto 0.0 % [facility] NRBC Absolute 0.000 0.000 - 0.000 x10(3)/mc L [facility] Blood 03/07/2022 5:08 AM EDT 03/07/2022 5:19 AM EDT Narrative Resulting Agency Comment Spec In Lab Nino Levy MD HEMATOLOGY ORDERABLE S Performing Organization Address City/[facility]/[place] [address] * Phosphorus (03/07/2022 5:08 AM EDT) Phosphorus 2.7 2.5 - 4.5 mg/dL [facility] Blood 03/07/2022 5:08 AM EDT 03/07/2022 5:19 AM EDT Narrative Resulting Agency Comment Spec In Lab Shania Will MD CHEMISTRY ORDERABLE S Performing Organization Address City/[facility]/ZIP Co de Phone Number [facility] [place] [address] * Magnesium (03/07/2022 5:08 AM EDT) Magnesium 0.89 0.69 - 1.07 mmol/L [facility] Blood 03/07/2022 5:08 AM EDT 03/07/2022 5:19 AM EDT Narrative Resulting Agency Comment Spec In Lab Shania Will MD CHEMISTRY ORDERABLE S [facility] [place] [address] * (ABNORMAL) Basic Metabolic Panel (non-fasting) (03/07/2022 [...] MD CHEMISTRY ORDERABLE S Performing Organization Address City/[facility]/ZIP Co de Phone Number [facility] [place] [address] * (ABNORMAL) Differential, Automated (03/06/2022 10:15 AM EDT) Neutrophil % 90.7 % [facility] Neutrophil Absolute 5.79 1.70 - 6.10 x10(3)/mc L [facility] Lymph % 5.0 % [facility] Lymphocytes Abs 0.3(L) 0.9 - 3.2 x10(3)/mc L [facility] Monocyte % 3.8 % [facility] Monocyte Abs 0.2(L) 0.3 - 0.9 x10(3)/mc L [facility] Eos % 0.0 % [facility] Eosinophils Abs 0.0 0.0 - 0.4 x10(3)/[facility] Basophil % 0.0 % [facility] [...] MUELLER HEMATOLOGY ORDERABL ES Performing Organization Address City/[facility]/ZIP Co de Phone Number [facility] [place] [address] * (ABNORMAL) Hemogram (03/06/2022 10:15 AM EDT) [...] CENTER [facility] Platelet 111(L) 145 - 357 x10(3)/[facility] RDW Standard Deviation 47.2(H) 37.0 - 46.0 [facility] RDW coefficient of variation 12.9 11.5 - 14.1 % [facility] Mean Platelet Volume 11.5 7.6 - 12.9 [facility] NRBC% auto 0.0 % [facility] NRBC Absolute 0.000 0.000 - 0.000 x10(3)/ L [facility] Blood 03/06/2022 10:1 5 AM EDT 03/06/2022 10:21 AM EDT Narrative Resulting Agency Comment Spec In Lab Maryam MUELLER HEMATOLOGY ORDERABL ES [facility] [place] [address] * Phosphorus (03/06/2022 10:15 AM EDT) Phosphorus 3.3 2.5 - 4.5 mg/dL [facility] Blood 03/06/2022 10:1 5 AM EDT 03/06/2022 10:21 AM EDT Narrative Resulting Agency Comment Spec In Lab Shania Will MD CHEMISTRY ORDERABLE S [facility] [place] [address] * Magnesium (03/06/2022 10:15 AM EDT) Magnesium 0.69 0.69 - 1.07 mmol/L [facility] Blood 03/06/2022 10:1 5 AM EDT 03/06/2022 10:21 AM EDT Narrative Resulting Agency Comment Spec In Lab Shania Will MD CHEMISTRY ORDERABLE S Performing Organization Address City/[facility]/ZIP Co de Phone Number [facility] [place] [address] * (ABNORMAL) Basic Metabolic Panel (non-fasting) (03/06/2022 [...] MD CHEMISTRY ORDERABLE S Performing Organization Address City/State/[facility] Co de Phone Number [facility] [place] [address] * (ABNORMAL) Differential, Automated (03/06/2022 4:29 AM EDT) Neutrophil % 90.5 % [facility] Neutrophil Absolute 4.47 1.70 - 6.10 x10(3)/mc L [facility] Lymph % 6.9 % [facility] Lymphocytes Abs 0.3(L) 0.9 - 3.2 x10(3)/mc L [facility] Monocyte % 2.2 % [facility] Monocyte Abs 0.1(L) 0.3 - 0.9 x10(3)/mc L [facility] Eos % 0.0 % [facility] Eosinophils Abs 0.0 0.0 - 0.4 x10(3)/mc L [facility] Basophil % 0.2 % [facility] [...] Immature Gran Absolute 0.01 0.00 - 0.04 x10(3)/[facility] Blood 03/06/2022 4:29 AM EDT 03/06/2022 4:49 AM EDT Narrative Resulting Agency Comment Spec In Lab Prakash Mendez MD HEMATOLOGY ORDERABLE S [facility] [place] [address] * (ABNORMAL) Hemogram (03/06/2022 4:29 AM EDT) White Blood Cell 4.9 4.0 - 9.5 x10(3)/[facility] Red Blood Cell 3.08(L) 4.00 - 5.21 x10(6)/[facility] Hemoglobin 10.5(L) 11.7 - 15.5 g/dL [...] CENTER LABORATORY Platelet 104(L) 145 - 357 x10(3)/[facility] RDW Standard Deviation 47.5(H) 37.0 - 46.0 fL [facility] RDW coefficient of variation 12.9 11.5 - 14.1 % [facility] Mean Platelet Volume 11.8 7.6 - 12.9 fL [facility] NRBC% auto 0.0 % [facility] NRBC Absolute 0.000 0.000 - 0.000 x10(3)/mc L [facility] Blood 03/06/2022 4:29 AM EDT 03/06/2022 4:49 AM EDT Narrative Resulting Agency Comment Spec In Lab Prakash Mendez MD HEMATOLOGY ORDERABLE S [facility] [place] [address] * (ABNORMAL) Basic Metabolic Panel (non-fasting) (03/06/2022 [...] MD CHEMISTRY ORDERABLE S Performing Organization Address City/[facility]/ZIP Co de Phone Number [facility] [place] [address] * POCT Glucose (03/05/2022 12:18 PM EDT) Glucose, POC 94 65 - 199 mg/dL [facility] Comment: Supplemental ranges: <140 mg/dL before meals <180 mg/dL all other times of the day Blood 03/05/2022 12:1 8 PM EDT 03/05/2022 12:18 PM EDT Shania Will MD POINT OF CARE TEST ORDERABLES Performing Organization Address City/[facility]/ZIP Co de Phone Number [facility] [place] [address] documented in this encounter Visit Diagnoses Not [...] Unit) documented in this encounter Care Teams Lay Midwife Relationship Specialty Start Date End Date Ana Her MD [address] [facility] [address] [place] [address] PCP - General 07/29/13 documented as of this encounter
--- OUTSIDE RECORDS SUMMARY | 2024-05-18 10:30 | XMS_ITS | Encounter Summary ---
Author [place] [address] Care Team Providers Care Tassel Maker Name Role Phone Ana Her MD Primary Care Provider [phone] Encounter Details Date Type Department Care Team (Late st Contact Info) Description 02/26/2022 Orders Only [place] [address] Alicia Manning RN Social History Tobacco Use [...] on filedocumented in this encounter Care Teams Tassel Maker Relationship Specialty Start Date End Date Ana Her MD [address] [place] [address] PCP - General 07/29/13 documented as of this encounter
--- OUTSIDE RECORDS SUMMARY | 2024-05-18 10:30 | XMS_ITS | Encounter Summary ---
[place] [address] Care Team Providers Care Licensed Reactor Operator Name Role Phone Ana Her MD Primary Care Provider [phone] Encounter Details Date Type Department Care Team (Late st Contact Info) Description 06/12/2021 Telephone [place] [phone] Chelsie Lauren Social History Tobacco Use Types [...] on filedocumented in this encounter Care Teams Licensed Reactor Operator Relationship Specialty Start Date End Date Ana Her MD [address] [place] [address] PCP - General 07/29/13 documented as of this encounter
--- OUTSIDE RECORDS SUMMARY | 2024-05-18 10:30 | XMS_ITS | Encounter Summary ---
[place] [address] Care Team Providers Care Pump Mechanic Name Role Phone Ana Her MD Primary Care Provider [phone] 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 * Consultation (Routine) - Closed Specialty Diagnoses / Procedures Referred By Christiano hackett Referred To Contact General Surgery Diagnoses Hiatal hernia Ana Her MD [address] [place] [address] [facility] Gen Surgery [address] [place] [phone] Referral ID Status Reason Start Date Expiration Date V isits Requested Visits Authorized [id number] Closed Consult, Test & Treat 09/23/2021 09/23/2022 6 6 Encounter Details Date Type Department Care Team (Late st Contact Info) Description 09/23/2021 Transcribe Orders eDH Incoming Referrals [phone] Ana Her MD [address] [place] [address] Hiatal hernia Social History Tobacco [...] gangrene documented in this encounter Care Teams Pump Mechanic Relationship Specialty Start Date End Date Ana Her MD [address] [place] [address] PCP - General 07/29/13 documented as of this encounter
--- OUTSIDE RECORDS SUMMARY | 2024-05-18 10:31 | XMS_ITS | Encounter Summary ---
Author Organization [place] [address] Care Team Providers Care Tombstone Erector Helper Name Role Phone Ana Her MD Primary Care Provider [phone] Encounter Details Date Type Department Care Team (Late st Contact Info) Description 05/10/2018 1:10 PM EST - 05/10/2018 11:59 PM EST Hospital Encounter Mammography/[place] [phone] Hiral Padgett, WENDY Encounter for screening mammogram [...] cancer documented in this encounter Care Teams Tombstone Erector Helper Relationship Specialty Start Date End Date Ana Her MD [address] [place] [address] PCP - General 07/29/13 documented as of this encounter
--- OUTSIDE RECORDS SUMMARY | 2024-05-18 10:31 | XMS_ITS | Encounter Summary ---
[place] [address] Care Team Providers Care Phosphoric Acid Operator Name Role Phone Ana Her MD Primary Care Provider [phone] Encounter Details Date Type Department Care Team (Late st Contact Info) Description 03/18/2017 Telephone [place] [phone] Bryanna Marsh RN Social History Tobacco Use [...] notes she had a colonoscopy done at [facility] and developed atrial fibrillation; she has been started on blood thinners. She was just discharged from the [facility] hospital, and called us to let [...] give Digna a call her number is [phone]. The below is from Dr. Chen visit [...] on filedocumented in this encounter Care Teams Phosphoric Acid Operator Relationship Specialty Start Date End Date Ana Her MD [address] [place] [address] PCP - General 07/29/13 documented as of this encounter
--- OUTSIDE RECORDS SUMMARY | 2024-05-18 10:31 | XMS_ITS | Encounter Summary ---
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 Procedures DXA Central-Spine, Hip, And/Or Whole Body (Generic) Ricky Lowry MD [facility] HEMATOLOGY/[place] [address] [facility] Rad Xray [address] [place] [address] [place] [address] Referral ID Status Reason Start Date Expiration Date V isits Requested Visits Authorized [id number] Closed Specialty Service Requested 05/10/2018 05/10/2019 1 1 Reason for Visit * Diagnostic Test (Routine) - Closed Specialty Diagnoses / Procedures Referred By Contac t Referred To Contact Radiology Diagnoses Malignant neoplasm of lower-outer quadrant of left breast of female, estrogen receptor positive Osteopenia of neck of femur, unspecified laterality 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 Procedures DXA Central-Spine, Hip, And/Or Whole Body (Generic) Ricky Lowry MD [facility] HEMATOLOGY/[place] [address] [facility] [address] [place] [address] Dr Alain[place], [place] [phone] Referral ID Status Reason Start Date Expiration Date V isits Requested Visits Authorized [id number] Closed Specialty Service Requested 05/10/2018 05/10/2019 1 1 Encounter Details Date Type Department Care Team (Latest Contact Info) Description 11/09/2018 1:03 PM EDT - 11/09/2018 11:59 PM EDT Hospital Encounter XRay at [address] [place] [address] Ricky Lowry MD Malignant neoplasm of lower-outer quadrant of left breast of female, estrogen receptor positive; Osteopenia of neck of femur, unspecified laterality; 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 Paper copies will be sent to providers without E-DH access. If you have received this report without the data sheet and do not have access to [employer], please contact Radiology Scalloper at [phone] Thursday thru Thursday 8am-4pm. Thank you for letting us participate in the care of this patient. For questions regarding this report, please contact the number below. ? Electronically signed by: JULIET Jackson Counts Include [address] [facility] ([phone]), at 11/10/2018 10:55 AM Narrative 11/10/2018 10:55 [...] BMD measurements and plots are available in [employer]under the imaging tab. Paper copies will be sent to providers without [employer] access.If you have received this report without the data sheet and do not haveaccess to [employer], please contact Radiology Scalloper at [phone] Thursday thruFriday 8am-4pm. Thank you for letting us participate in the care of this patient. Forquestions regarding this report, please contact the number below. Electronically signed by: Khushi Hughes [facility] [place] ([phone]),at 11/10/2018 10:55 AM Ricky Lowry MD IMG DEXA ORDERABLES documented in this encounter Visit Diagnoses Diagnosis Malignant neoplasm of lower-outer quadrant of left breast of female, estrogen receptor positive Osteopenia of neck of femur, unspecified laterality group home current use of aromatase inhibitor Use of aromatase inhibitors documented in this encounter Care Teams Assurance Services Manager Health Care Relationship Specialty Start Date End Date Ana Her MD [facility] [address] [facility] [address] [place] [address] PCP - General 07/29/13 documented as of this encounter
--- OUTSIDE RECORDS SUMMARY | 2024-05-18 10:31 | XMS_ITS | Encounter Summary ---
Author Organization [facility] [address] Care Team Providers Care Heater Furnace Name Role Phone Ana Her MD Primary Care Provider [phone] Reason for Visit * Reason Comments Follow Up Surgery Encounter Details Date Type Department Care Team (Late st Contact Info) Description 07/13/2017 1:30 PM EDT Office [place] [phone] Hiral Padgett, WENDY History of breast cancer [...] with image-guided localization ?Lymph Node Sampling: ?? [place] lymph node(s) ?Specimen Laterality: ?? Left Tumor [...] ?DCIS not present in specimen Lymph Nodes ?[place] Lymph Nodes: ?? [place] lymph node biopsy performed ?Number of [place] Nodes Examined: ?3 ?Number of Lymph Node(s) [...] breast documented in this encounter Care Teams Heater Furnace Relationship Specialty Start Date End Date Ana Her MD [facility] [address] [place] [address] PCP - General 07/29/13 documented as of this encounter
--- OUTSIDE RECORDS SUMMARY | 2024-05-18 10:31 | XMS_ITS | Encounter Summary ---
[place] [address] Care Team Providers Care Scouring Train Operator Chief Name Role Phone Ana Her MD Primary Care Provider Reason for Visit * Reason Comments Schedule Office Case Encounter Details Date Type Department Care Team (Late st Contact Info) Description 04/23/2017 2:00 PM EST Office Visit Hematology [place] [phone] Ricky Lowry MD Malignant neoplasm of lower-outer [...] cancer cells with immunostaining) Stain intensity: Strong UT immunoreactivity: Positive (>90% cancer cells with immunostaining) [...] ??Excision with image-guided localization ?Lymph Node Sampling: ??[place] lymph node(s) ?Specimen Laterality: ??Left Tumor ?Histologic [...] ??DCIS not present in specimen Lymph Nodes ?[place] Lymph Nodes: [place] lymph node biopsy performed ?Number of [place] Nodes Examined: ??3 ?Number of Lymph Node(s) [...] DEXA scan was in this year at [facility]. There is no history of thromboembolic [...] positive documented in this encounter Care Teams Scouring Train Operator Chief Relationship Specialty Start Date End Date Ana Her MD [address] [place] [address] PCP - General 07/29/13 documented as of this encounter
--- OUTSIDE RECORDS SUMMARY | 2024-05-18 10:31 | XMS_ITS | Encounter Summary ---
[place] [address] Care Team Providers Care Screen And Cyclone Repairer Name Role Phone Ana Her MD Primary Care Provider [phone] Encounter Details Date Type Department Care Team (Late st Contact Info) Description 11/09/2018 2:45 PM EDT Office Visit Hematology [place] [address] Ricky Lowry MD Malignant neoplasm of lower-outer [...] ??Excision with image-guided localization ?Lymph Node Sampling: ??[place] lymph node(s) ?Specimen Laterality: ??Left Tumor ?Histologic [...] ??DCIS not present in specimen Lymph Nodes ?[place] Lymph Nodes: [place] lymph node biopsy performed ?Number of [place] Nodes Examined: ??3 ?Number of Lymph Node(s) [...] Spinal stenosis > A Fib. [facility]iology at [facility] S/P successful cardioversion May 2018. DEXA scan [...] laterality documented in this encounter Care Teams Screen And Cyclone Repairer Relationship Specialty Start Date End Date Ana Her MD [address] [place] [address] PCP - General 07/29/13 documented as of this encounter
--- OUTSIDE RECORDS SUMMARY | 2024-05-18 10:31 | XMS_ITS | Encounter Summary ---
[place] [address] Care Team Providers Care Vp Software Support Name Role Phone Ana Her MD Primary Care Provider [phone] Encounter Details Date Type Department Care Team (Late st Contact Info) Description 02/27/2017 Telephone Hematology [place] [phone] Argentina Sanchez RN Social History Tobacco Use [...] a 71 y.o. female with newly diagnosed ER/NM+/HER2 corey pending left breast invasive mucinous cancer (left breast U/S guided biopsy 02[place]25/2017 at [facility] Alma Delia sounds positive and has support. [...] for her review (a link to the [facility] Early Stage Breast Cancer program). The Breast [...] in this encounter Care Teams Vp Software Support Relationship Specialty Start Date End Date Ana Her MD [address] [place] [address] PCP - General 07/29/13 documented as of this encounter
--- OUTSIDE RECORDS SUMMARY | 2024-05-18 10:31 | XMS_ITS | Encounter Summary ---
Author Organization [facility] [place] [address] Care Team Providers Care Foundry Finisher Name Role Phone Ana Her MD Primary Care Provider [phone] Encounter Details Date Type Department Care Team (Late st Contact Info) Description 03/30/2017 Notes [place] [address] January Ward MSW Social History Tobacco Use [...] was recently diagnosed with invasive mucinous carcinoma. [facility] attempted to meet with pt in Same Day surgery this morning but she was still in radiology. I spoke with her ex-, Keith, who states she will be staying with him tondenise. Their granddaughters are traveling from [place] and plan to accompany pt to see her accident report clerk at [facility] tomorrow. Pt has been followed by this physician for her cardiac problems. [facility] will continue to provide support and resources to pt. documented in this encounter Plan of Treatment Not on file documented as of this encounter Visit Diagnoses Not on filedocumented in this encounter Care Teams Foundry Finisher Relationship Specialty Start Date End Date Ana Her MD [address] [facility] 1 [place] [address] PCP - General 07/29/13 documented as of this encounter
--- OUTSIDE RECORDS SUMMARY | 2024-05-18 10:31 | XMS_ITS | Encounter Summary ---
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 Procedures DXA Central-Spine, Hip, And/Or Whole Body (Generic) Ricky Lowry MD [facility] [address] HEMATOLOGY/[place] [address] [facility] Rad Xray [address] [place] [address] [place] [address] Referral ID Status Reason Start Date Expiration Date V isits Requested Visits Authorized [id number] Closed Specialty Service Requested 05/10/2018 05/10/2019 1 1 Reason for Visit * Reason Comments Follow-up Encounter Details Date Type Department Care Team (Late st Contact Info) Description 05/10/2018 2:45 PM EST Office Visit Hematology and Oncology at [facility] [place] [address] Ricky Lowry MD Malignant neoplasm [...] ??Excision with image-guided localization ?Lymph Node Sampling: ??[place] lymph node(s) ?Specimen Laterality: ??Left Tumor ?Histologic [...] ??DCIS not present in specimen Lymph Nodes ?[place] Lymph Nodes: [place] lymph node biopsy performed ?Number of [place] Nodes Examined: ??3 ?Number of Lymph Node(s) [...] Spinal stenosis > A Fib. Cardiology at [facility]. Most recent DEXA scan was last year at [facility]. There is no history of thromboembolic [...] is planned for later this week (at [facility]). No new problems with VELEZ, diplopia, cough, [...] chemotherapy. TACHO. Renewal of anastrazole sent. Given [facility] brochure to share with cousins. [...] BMD measurements and plots are available in [employer] under the imaging tab. Paper copies will be sent to providers without [employer] access. If you have received this report without the data sheet and do not have access to [employer], please contact Radiology Theatrical Rigger at [phone] Thursday thru Thursday 8am-4pm. Thank you for letting us participate in the care of this patient. For questions regarding this report, please contact the number below. ? Electronically signed by: Khushi Hughes [facility] ([phone]), at 11/10/2018 10:55 AM Narrative 11/10/2018 10:55 [...] BMD measurements and plots are available in Webcollageunder the imaging tab. Paper copies will be sent to providers without [employer] access.If you have received this report without the data sheet and do not haveaccess to [employer], please contact Radiology Theatrical Rigger at [phone] Thursday thruFriday 8am-4pm. Thank you for letting us participate in the care of this patient. Forquestions regarding this report, please contact the number below. 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
--- OUTSIDE RECORDS SUMMARY | 2024-05-18 10:31 | XMS_ITS | Encounter Summary ---
Author Organization [place] [address] Care Team Providers Care Bonded Structures Repairer Name Role Phone Ana Her MD Primary Care Provider [phone] Reason for Visit * Reason Comments Follow-up Encounter Details Date Type Department Care Team (Late st Contact Info) Description 10/23/2017 11:00 AM EDT Office Visit [place] [address] Mayra Page APRN [facility] [place] [address] Malignant neoplasm of lower-outer quadrant of left [...] this encounter Progress Notes * Mayra Page, STENOCAPTIONER - 10/23/2017 11:00 AM EDT Digna Olson [...] cancer cells with immunostaining) Stain intensity: Strong NM immunoreactivity: Positive (>90% cancer cells with immunostaining) [...] ??Excision with image-guided localization ?Lymph Node Sampling: ??[place] lymph node(s) ?Specimen Laterality: ??Left Tumor ?Histologic [...] ??DCIS not present in specimen Lymph Nodes ?[place] Lymph Nodes: [place] lymph node biopsy performed ?Number of [place] Nodes Examined: ??3 ?Number of Lymph Node(s) Examined (sentinel and nonsentinel): 3 ?Lymph Node Involvement: None identified Stage (pTNM) ?Pathological Stage: ?? pT1b pN0 PMH: Past Medical History: Diagnosis Date ??? Breast cancer ??? Fracture of tibia 12/2016 left tibial plateau ??? GERD (gastroesophageal reflux disease) ??? H/O non-insulin dependent diabetes mellitus ??? Spinal stenosis Most recent DEXA scan was 10/28/16 at [facility]. There [...] positive documented in this encounter Care Teams Bonded Structures Repairer Relationship Specialty Start Date End Date Ana Her MD [address] [place] [address] PCP - General 07/29/13 documented as of this encounter
--- OUTSIDE RECORDS SUMMARY | 2024-05-18 10:31 | XMS_ITS | Encounter Summary ---
[place] [address] Care Team Providers Care Extractor Loader And Unloader Name Role Phone Ana Her MD Primary Care Provider [phone] Reason for Visit * Reason Comments Follow-up Encounter Details Date Type Department Care Team (Late st Contact Info) Description 11/29/2019 2:45 PM EDT Office Visit [place] [phone] Ricky Lowry MD Malignant neoplasm of lower-outer [...] ??Excision with image-guided localization ?Lymph Node Sampling: ??[place] lymph node(s) ?Specimen Laterality: ??Left Tumor ?Histologic [...] ??DCIS not present in specimen Lymph Nodes ?[place] Lymph Nodes: [place] lymph node biopsy performed ?Number of [place] Nodes Examined: ??3 ?Number of Lymph Node(s) [...] positive documented in this encounter Care Teams Extractor Loader And Unloader Relationship Specialty Start Date End Date Ana Her MD [address] [place] [address] PCP - General 07/29/13 documented as of this encounter
--- OUTSIDE RECORDS SUMMARY | 2024-05-18 10:31 | XMS_ITS | Encounter Summary ---
Author Organization [facility] [place] [address] Care Team Providers Care Technical Product Manager Name Role Phone Ana Her MD Primary Care Provider [phone] Reason for Visit * Reason Comments Follow-up Encounter Details Date Type Department Care Team (Late st Contact Info) Description 05/31/2019 11:45 AM EST Office Visit Hematology [place] [phone] Ricky Lowry MD Malignant neoplasm of lower-outer [...] ??Excision with image-guided localization ?Lymph Node Sampling: ??[place] lymph node(s) ?Specimen Laterality: ??Left Tumor ?Histologic [...] ??DCIS not present in specimen Lymph Nodes ?[place] Lymph Nodes: [place] lymph node biopsy performed ?Number of [place] Nodes Examined: ??3 ?Number of Lymph Node(s) [...] Spinal stenosis > A Fib. Card[place] [facility] S/P successful cardioversion May 2018. DEXA scan [...] documented in this encounter Care Teams Technical Product Manager Relationship Specialty Start Date End Date Ana Her MD [facility] [address] [facility] 1 [place] [address] PCP - General 07/29/13 documented as of this encounter
--- OUTSIDE RECORDS SUMMARY | 2024-05-18 10:31 | XMS_ITS | Encounter Summary ---
[place] [address] Care Team Providers Care Dance Hall Hostess Name Role Phone Ana Her MD Primary Care Provider [phone] Encounter Details Date Type Department Care Team (Late st Contact Info) Description 05/06/2017 Telephone Radiation Oncology at [address] [address] Maria A Antonio RN Social [...] on filedocumented in this encounter Care Teams Dance Hall Hostess Relationship Specialty Start Date End Date Ana Her MD [address] [facility] 1 [place] [address] PCP - General 07/29/13 documented as of this encounter
--- OUTSIDE RECORDS SUMMARY | 2024-05-18 10:31 | XMS_ITS | Encounter Summary ---
Author Organization [facility] [address] Care Team Providers Care Tafe Teacher Name Role Phone Ana Her MD Primary Care Provider [phone] Encounter Details Date Type Department Care Team (Latest Contact Info) Description 03/30/2017 8:30 AM [email or web address] Hospital [place] [address] Malika Chen MD [facility] [place] [address] Malignant neoplasm of upper-outer quadrant of left [...] documented in this encounter Results * Mammo [place] Node Injection (03/30/2017 9:01 AM EST) Anatomical [...] mCi documented in this encounter Care Teams Tafe Teacher Relationship Specialty Start Date End Date Ana Her MD [address] [place] [address] PCP - General 07/29/13 documented as of this encounter
--- OUTSIDE RECORDS SUMMARY | 2024-05-18 10:31 | XMS_ITS | Encounter Summary ---
[place] [address] Care Team Providers Care Dtp Operator Name Role Phone Ana Her MD Primary Care Provider [phone] Encounter Details Date Type Department Care Team (Latest Contact Info) Description 03/03/2017 7:55 AM EDT Laboratory Appointment Lab [address] [place] [address] Malignant neoplasm of left breast in female, [...] Absolute 6.45(H) 1.70 - 6.10 x10(3)/mc L [facility] Lymph % 14.4 % [facility] Lymphocytes Abs 1.3 0.9 - 3.2 x10(3)/ L [facility] Monocyte % 5.6 % [facility] Monocyte Abs 0.5 0.3 - 0.9 x10(3)/ L [facility] Eos % 6.1 % [facility] Eosinophils Abs 0.5(H) 0.0 - 0.4 x10(3)/ L [facility] Basophil % 0.6 % [facility] [...] Absolute 0.04 0.00 - 0.04 x10(3)/mc L [facility] Blood specimen (specimen) 03/03/2017 7:50 AM EDT 03/03/2017 8:03 AM EDT Narrative Resulting Agency Comment Spec In Lab Malika Chen MD HEMATOLOGY ORDERABL ES [facility] [place] [address] * (ABNORMAL) Hemogram (03/03/2017 7:50 AM EDT) White Blood Cell 8.8 4.0 - 9.5 x10(3)/mc L [facility] Red Blood Cell 3.80(L) 4.00 - 5.21 x10(6)/mc L [facility] Hemoglobin 12.3 11.7 - 15.5 gm/dL [facility] Hematocrit 36.3 35.7 - 45.8 % [facility] Mean Cell Volume 95.5(H) 82.6 - 94.4 fL [facility] Mean Cell Hemoglobin 32.4(H) 27.1 - 32.0 pg [facility] Mean Cell Hemoglobin Concentration 33.9 31.7 - 35.0 gm/dL [facility] Platelet 156 145 - 357 x10(3)/ L [facility] RDW Standard Deviation 48.3(H) 37.0 - 46.0 [facility] RDW coefficient of variation 13.9 11.5 - 14.1 % [facility] Mean Platelet Volume 11.9 7.6 - 12.9 fL [facility] NRBC% auto 0.0 % [facility] NRBC Absolute 0.000 0.000 - 0.000 x10(3)/ L [facility] Blood specimen (specimen) 03/03/2017 7:50 AM EDT 03/03/2017 8:03 AM EDT Narrative Resulting Agency Comment Spec In Lab Malika Chne MD HEMATOLOGY ORDERABL ES [facility] [place] [address] * (ABNORMAL) Comprehensive metabolic panel (non-fasting) (03/03/2017 7:50 AM EDT) Glucose 139 65 - 199 mg/dL [facility] Comment:Diabetes: >=200 mg/d L plus symptoms Blood Urea Nitrogen 20(H) 8 - 18 mg/dL [facility] Creatinine 0.95 0.70 - 1.20 mg/dL [facility] Sodium 141 135 - 145 mmol/L [facility] [...] mmol/L [facility] Carbon Dioxide 26 22 - 31 mmol/L [facility] Anion Gap 14 5 - 15 mmol/L [facility] Calcium 9.3 8.5 - 10.5 mg/dL [facility] Protein, Total 6.9 6.1 - 8.0 gm/dL [facility] Albumin 4.2 3.2 - 5.2 gm/dL [facility] Aspartate Aminotransferase 17 0 - 30 unit/L [facility] Alanine Aminotransferase 16 0 - 30 unit/L [facility] Alkaline Phosphatase 75 40 - 104 unit/L [facility] Bilirubin, Total 0.5 0.2 - 1.3 mg/dL [facility] Est Glomerular Filtration Rate 58(L) >=60 [facility] Comment: The reported eGFR should be multiplied by 1.2 for patients. The MDRD is not an appropriate measure of renal function for patients with body mass extremes or in patients with acute kidney failure. http://[employer]/DHnkdep http://[employer].com/DHMCnkf Blood specimen (specimen) 03/03/2017 7:50 AM EDT 03/03/2017 8:03 AM EDT Narrative Resulting Agency Comment Spec In Lab Malika Chen MD [place] [address] documented in this encounter Visit Diagnoses Diagnosis Malignant neoplasm of left breast in female, estrogen receptor positive, unspecified site of breast documented in this encounter Care Teams Dtp Operator Relationship Specialty Start Date End Date Ana Her MD [address] [place] [address] PCP - General 07/29/13 documented as of this encounter
--- OUTSIDE RECORDS SUMMARY | 2024-05-18 10:31 | XMS_ITS | Encounter Summary ---
Author Organization [facility] [place] [address] Care Team Providers Care Wildlife Biology Technician Name Role Phone Ana Her MD Primary Care Provider [phone] Encounter Details Date Type Department Care Team (Latest Contact Info) Description 03/30/2017 8:[address] [facility] Hospital En[place] [address] Malika Chen MD [facility] [place] [address] Malignant neoplasm of upper-outer quadrant of left [...] mg documented in this encounter Care Teams Wildlife Biology Technician Relationship Specialty Start Date End Date Ana Her MD [address] [place] [address] PCP - General 07/29/13 documented as of this encounter
--- OUTSIDE RECORDS SUMMARY | 2024-05-18 10:31 | XMS_ITS | Encounter Summary ---
Author Organization [facility] [place] [address] Care Team Providers Care Slag Production Worker Name Role Phone Ana Her MD Primary Care Provider [phone] Encounter Details Date Type Department Care Team (Late st Contact Info) Description 03/19/2017 Telephone [place] [address] Malika Chen MD [facility] [place] [address] Social History Tobacco Use Types Packs/Day Years [...] no unexpected bleeding. Surgery is scheduled in [facility]. documented in this encounter Plan of Treatment Not on file documented as of this encounter Visit Diagnoses Not on filedocumented in this encounter Care Teams Slag Production Worker Relationship Specialty Start Date End Date Ana Her MD [address] [facility] 1 [place] [address] PCP - General 07/29/13 documented as of this encounter
--- OUTSIDE RECORDS SUMMARY | 2024-05-18 10:31 | XMS_ITS | Encounter Summary ---
Author Organization [facility] [place] [address] Care Team Providers Care Hospital Food Service Worker Name Role Phone Ana Her MD Primary Care Provider [phone] Encounter Details Date Type Department Care Team (Late st Contact Info) Description 03/30/2017 9:30 AM EST - 03/30/2017 11:28 AM EST Surgery [place] [phone] Brant Chen MD [facility] [place] [address] MASTECTOMY PARTIAL (WRVU 10.13) Social History Tobacco [...] shower 24 hours Activity as tolerated Call [phone] with any questions Do not soak incision [...] Alma Delia had a bone scan in [place] which was read as possible metastasis in the left tibia. Of note- she fractured this area recently. She has recovered well. ?? PMH HNT NIDDM not on meds Spinal stenosis Fractured left tibial plateau [place], 2017 GERD ?? FH: Maternal first cousin with breast cancer Brother with rectal cancer Sister with PE ? SH: lives alone. Has good support from sisters who live in [place]. Non smoker. Has a son who lives [...] Chen MD - 03/30/2017 12:27 PM EST [facility] Operative Note Patient Name: Digna Olson : [id number] MR#: [id number] Case Date: 03/30/2017 Surgeon: Surgeon(s) and Role: [...] [place] [address]. Remaining count within the axilla was 1982. [...] Chen MD PATHOLOGY/CYTOLOGY ORDERABLES [facility] [place] [address] * Specimen to Pathology (surgical or derm) (03/30/2017 12:08 PM EST) AP Specimen 03/30/2017 12:0 8 PM EST 03/30/2017 12:08 PM EST Narrative [facility] - 03/30/2017 12:08 PM EST Specimen requisition ordered. ??Separate Pathology report to follow Brant Chen MD PATHOLOGY/CYTOLOGY ORDERABLES Performing Organization Address [facility] Co de Phone Number [facility] [place] [address] * Specimen to Pathology (surgical or derm) (03/30/2017 12:00 PM EST) AP Specimen 03/30/2017 12:0 0 PM EST 03/30/2017 12:00 PM EST Narrative [facility] - 03/30/2017 12:00 PM EST Specimen requisition ordered. ??Separate Pathology report to follow Brant Chen MD PATHOLOGY/CYTOLOGY ORDERABLES Performing Organization Address [facility] [place] [address] * Specimen to Pathology (surgical or derm) (03/30/2017 11:51 AM EST) AP Specimen 03/30/2017 11:5 1 AM EST 03/30/2017 11:51 AM EST Narrative [facility] - 03/30/2017 11:51 AM EST Specimen requisition ordered. ??Separate Pathology report to follow Brant Chen MD PATHOLOGY/CYTOLOGY ORDERABLES Performing Organization Address [facility] Co de Phone Number [facility] [place] [phone] * Surgical Pathology Report (03/30/2017 11:50 AM EST) Final Diagnosis [id number] ? Location: [facility]; [facility]; A The signing pathologist has (i) examined the relevant preparation(s) for the specimen(s) and (ii) rendered or confirmed the diagnosis(es). . ?Surgical Pathology DIAGNOSIS A,B - See Synoptic C - Left breast, Deep/lateral margin re-excision - ?Benign fatty breast tissue. D - Left breast, Superficial margin re-excision - ?Benign fatty breast tissue. See Note Note - [place] ink (indicating additional cranial margin) is also present on this superficial margin re-excision. ---- Specimen Parts: ?? A - Left axilliary sentinel node B - Left breast partial mastectomy Specimen ? Procedure: ??Excision with image-guided localization ? Lymph Node Sampling: ?? [place] lymph node(s) ? Specimen Laterality: ?? Left [...] not present in specimen Lymph Nodes ? [place] Lymph Nodes: ?? [place] lymph node biopsy performed ? Number of [place] Nodes Examined: ?3 ? Number of Lymph [...] Chávez DO Verified: ??04/01/2017 ?Pathologist Performed at: ??-[facility] Dept. of Pathology, [place], [place] CLINICAL INFORMATION Specimen Submitted: A - [...] and there are ??no close margins. per [facility] Radiology . Specimen Description: According [...] 0.8 x 0.4 x 0.4 cm. Color: [place] and yellow. Consistency: Soft. Location: Slices III and IV. Nearest Margin: 0.6 cm to the cranial margin. Other Margins: 0.8 cm to the deep margin, 1.0 cm to the superficial margin, ? > 2 cm from all other margins. OTHER Parenchyma: Predominately fatty with scant fibrous tissue. Wire/Clip: Biopsy marker clip identified within slice IV. SECTIONS/PROCESSI NG: (1) containers sales representative slice I, lateral margin; (2) slice III, lesion to cranial margin; (3-5) remainder of slice III; (6) slice IV, lesion to cranial margin (clip); (7-8) remainder of slice IV; (9) containers sales representative slice V; (10) containers sales representative slice X, medial margin. (R10) [...] sectioned. (T3) ??sns 04/01/2017 9:38 AM EST [facility] BREAST STRUCTURE / Unknown 03/30/2017 11:50 AM EST 03/30/2017 11:50 AM EST BREAST STRUCTURE / Unknown 03/30/2017 11:50 AM EST 03/30/2017 11:50 AM EST BREAST STRUCTURE / Unknown 03/30/2017 11:50 AM EST 03/30/2017 11:50 AM EST BREAST STRUCTURE / Unknown 03/30/2017 11:50 AM EST 03/30/2017 11:50 AM EST Brant Chen MD PATHOLOGY/CYTOLOGY ORDERABLES [facility] [place] [address] * Mammo Direct Digital Left (03/30/2017 9:15 [...] Routine documented in this encounter Care Teams Hospital Food Service Worker Relationship Specialty Start Date End Date Ana Her MD [address] [place] [address] PCP - General 07/29/13 documented as of this encounter
--- OUTSIDE RECORDS SUMMARY | 2024-05-18 10:31 | XMS_ITS | Encounter Summary ---
Author Organization [facility] [place] [address] Care Team Providers Care Drink Waiter Name Role Phone Ana Her MD Primary Care Provider [phone] Encounter Details Date Type Department Care Team (Late st Contact Info) Description 10/23/2017 9:43 AM EDT - 10/23/2017 11:59 PM EDT Hospital [place] [phone] Hiral Padgett, WENDY History of breast cancer [...] breast documented in this encounter Care Teams Drink Waiter Relationship Specialty Start Date End Date Ana Her MD [address] [place] [address] PCP - General 07/29/13 documented as of this encounter
--- OUTSIDE RECORDS SUMMARY | 2024-05-18 10:31 | XMS_ITS | Encounter Summary ---
Author Organization [facility] [place] [address] Care Team Providers Care Environmental Remediation Specialist Name Role Phone Ana Her MD Primary Care Provider [phone] Encounter Details Date Type Department Care Team (Late st Contact Info) Description 03/03/2017 [place] [address] January Ward MSW Social History Tobacco Use Types Packs/Day Years Used Date Smoking Tobacco: Never Smokeless Tobacco: Never Sex and Gender Information Value Date Recorded Sex Assigned at Not on file Gender Identity Not on file Sexual Orientation Not on file documented as of this encounter Progress Notes * January Ward MSW - 03/03/2017 12:56 PM EDT OFFICE OF CARE MANAGEMENT/CONTINUING CYBER SYSTEMS OPERATIONS SPECIALIST Reason for referral: Digna Olson is a 71 year old, female who was seen in the multidisciplinarybreast care clinic for a surgical consult as she was recently diagnosed with ER/SD+, left breast, invasive mucinous carcinoma. After meeting with Dr. Chen, pt has decided to have a lumpectomy/SLNB. If pt needs radiation therapy, she will receive it at the [facility]. [facility] met with pt to complete a psychosocial assessment and to explain my role in the breast program. Pt was encouraged to contact me if she has any questions or concerns. Living arrangements/social supports: Pt lives alone in [place], [place]. She has support from her family and is accompanied to today's appt by her sisters who live in [place]. Employment/Insurance/Finances: Pt is retired and receives Social [...] SW for the [facility]. Plan: [facility] will continue to follow pt to assess and assist with their psychosocial needs. DELONTE [facility]/[place] [phone] Pager #[phone] documented in this encounter Plan of Treatment Not on file documented as of this encounter Visit Diagnoses Not on filedocumented in this encounter Care Teams Environmental Remediation Specialist Relationship Specialty Start Date End Date Ana Her MD [address] [place] [address] PCP - General 07/29/13 documented as of this encounter
--- OUTSIDE RECORDS SUMMARY | 2024-05-18 10:31 | XMS_ITS | Encounter Summary ---
[place] [address] Care Team Providers Care Glass Cutter Hand Name Role Phone Ana Her MD Primary Care Provider [phone] Encounter Details Date Type Department Care Team (Late st Contact Info) Description 04/09/2017 Abstract Radiation Oncology at [address] [phone] Maria A Antonio, RN Social History Tobacco [...] on filedocumented in this encounter Care Teams Glass Cutter Hand Relationship Specialty Start Date End Date Ana Her MD [address] [place] [address] PCP - General 07/29/13 documented as of this encounter
--- OUTSIDE RECORDS SUMMARY | 2024-05-18 10:31 | XMS_ITS | Encounter Summary ---
Author Organization [facility] [place] [address] Care Team Providers Care Ironing Machine Operator Name Role Phone Ana Her MD Primary Care Provider [phone] Encounter Details Date Type Department Care Team (Late st Contact Info) Description 04/23/2017 Notes [place] [address] Marjorie Ariza Social History Tobacco Use Types [...] Marjorie Ariza - 04/23/2017 2:43 PM EST Disability Program Navigator Environmental Health Physician met with pt after consultation with medical [...] on filedocumented in this encounter Care Teams Ironing Machine Operator Relationship Specialty Start Date End Date Ana Her MD [address] [facility] [address] [place] [address] PCP - General 07/29/13 documented as of this encounter
--- OUTSIDE RECORDS SUMMARY | 2024-05-18 10:31 | XMS_ITS | Encounter Summary ---
Author Organization [facility] [place] [address] Care Team Providers Care Black Top Machine Operator Name Role Phone Ana Her MD Primary Care Provider [phone] Encounter Details Date Type Department Care Team (Latest Contact Info) Description 05/31/2019 10:16 AM EST - 05/31/2019 11:59 PM EST Hospital Encounter Mammography/[place] [phone] Jeanine Lobato APRN [facility] [place] [address] History of breast cancer Discharge Disposition: Home [...] BIRADS CATEGORY 2: Benign findings. * ??The [place] [employer] and The Society of [...] breast documented in this encounter Care Teams Black Top Machine Operator Relationship Specialty Start Date End Date Ana Her MD [address] [place] [address] PCP - General 07/29/13 documented as of this encounter
--- OUTSIDE RECORDS SUMMARY | 2024-05-18 10:31 | XMS_ITS | Encounter Summary ---
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 Procedures DXA Central Spine, Hip, and/or Whole Body (Generic) Ricky Lowry MD [facility] [address] HEMATOLOGY/[place] [address] [facility] Rad Xray [address] [place] [address] [place] [address] Referral ID Status Reason Start Date Expiration Date V isits Requested Visits Authorized [id number] Closed Specialty Service Requested 05/22/2020 11/19/2021 1 1 Encounter Details Date Type Department Care Team (Late st Contact Info) Description 05/22/2020 1:15 PM EST Office Visit Hematology and Oncology at [facility] [place] [address] Ricky Lowry MD Malignant neoplasm of lower-outer quadrant of left breast of female, estrogen receptor positive; Osteopenia of neck of femur, unspecified laterality; [facility] current use of aromatase inhibitor Social History [...] ??Excision with image-guided localization ?Lymph Node Sampling: ??[place] lymph node(s) ?Specimen Laterality: ??Left Tumor ?Histologic [...] ??DCIS not present in specimen Lymph Nodes ?[place] Lymph Nodes: [place] lymph node biopsy performed ?Number of [place] Nodes Examined: ??3 ?Number of Lymph Node(s) [...] BMD measurements and plots are available in [employer] under the imaging tab. Paper copies will be sent to providers without [employer] access. If you have received this report without the data sheet and do not have access to [employer], please contact Radiology [facility] at [phone] Thursday thru Thursday 8am-4pm. Thank you for letting us participate in the care of this patient. ??If you are a health care provider and have any questions regarding this report, please contact the number below. ??For patients who have questions please contact the health assistant child care teacher that requested your imaging first. [...] BMD measurements and plots are available in [employer] the imaging tab. Paper copies will be sent to providers without [employer] access.If you have received this report without the data sheet and do not haveaccess to [employer], please contact Radiology Urban Gardening Specialist at [phone] Thursday thruFriday 8am-4pm. Thank you for letting us participate in the care of this patient. If youare a health care provider and have any questions regarding this report,please contact the number below. For patients who have questions please contactthe health assistant child care teacher that requested your imaging first. [...] inhibitors documented in this encounter Care Teams Septic Tank Servicer Relationship Specialty Start Date End Date Ana Her MD [address] [place] [address] PCP - General 07/29/13 documented as of this encounter
--- OUTSIDE RECORDS SUMMARY | 2024-05-18 10:31 | XMS_ITS | Encounter Summary ---
Author Organization [facility] Address [facility] [place] [address] Care Team Providers Care Industrial/Organizational Psychologist Name Role Phone Ana Her MD Primary Care Provider [phone] Reason for Visit * Reason Comments Radiation Consult * Consultation (Routine) - Closed Specialty Diagnoses / Procedures Referred By Christiano hackett Referred To Contact Radiation Oncology Diagnoses Breast cancer Malika Chen MD [facility] [place] [address] Stj Rad Onc Office [address] [place] [phone] Referral ID Status Reason Start Date Expiration Date Visits Re quested Visits Authorized [id number] Closed 03/17/2017 03/17/2018 1 1 Encounter Details Date Type Department Care Team (Late st Contact Info) Description 04/13/2017 10:00 AM EST Office Visit Radiation Oncology at [address] [phone] Faye Velez MD [facility] [place] [address] Malignant neoplasm of left female breast, unspecified [...] she is being evaluated for afib @ [facility]. 04/15/17; has been wearing a ziopatch [...] performed by Malika Chen MD at [facility] MAIN OR ??? PRO INTRAOP SENTINEL LYMPH ID W/DYE INJECTION Left 03/30/2017 INTRAOPERATIVE ID (MAPPING) SENTINEL LYMPH NODE,INCLUDES INJECTION (WRVU 2.5) performed by Malika Chen MD at [facility] MA[facility] OR ??? PRO MASTECTOMY, PARTIAL Left 03/30/2017 MASTECTOMY PARTIAL (WRVU 10.13) performed by Malika Chen MD at [facility] MA[facility] OR Your Medications These changes [...] treated breast; cough; shortness of breath; tiredness. Late/manager long term care side effects to breast discussed include: [...] breast documented in this encounter Care Teams Industrial/Organizational Psychologist Relationship Specialty Start Date End Date Ana Her MD [address] [place] [address] PCP - General 07/29/13 documented as of this encounter
--- OUTSIDE RECORDS SUMMARY | 2024-05-18 10:31 | XMS_ITS | Encounter Summary ---
[place] [address] Care Team Providers Care Biodiesel Engine Specialist Name Role Phone Ana Her MD Primary Care Provider [phone] Encounter Details Date Type Department Care Team (Late st Contact Info) Description 05/19/2017 Telephone [place]ology [place] [phone] Sandy Chapman Social History Tobacco Use Types [...] filedocumented in this encounter Care Teams Biodiesel Engine Specialist Relationship Specialty Start Date End Date Ana Her MD [address] [place] [address] PCP - General 07/29/13 documented as of this encounter
--- OUTSIDE RECORDS SUMMARY | 2024-05-18 10:31 | XMS_ITS | Encounter Summary ---
[place] [address] Care Team Providers Care Front Load Trash Truck Driver Name Role Phone Ana Her MD Primary Care Provider [phone] Encounter Details Date Type Department Care Team (Latest Contact Info) Description 03/30/2017 7:27 AM EST - 03/30/2017 1:37 PM EST Hospital Encounter [place] [phone] Brant Chen MD [facility] [place] [address] Discharge Disposition: Home Social History Tobacco Use [...] shower 24 hours Activity as tolerated Call [phone] with any questions Do not soak incision [...] obtained which revealed IDC which is ER/NY+, her2-. She has no known breast masses, no adenopathy, no nipple discharge. ?? Alma Delia had a bone scan in [place] which was read as possible metastasis in the left tibia. Of note- she fractured this area recently. She has recovered well. ?? PMH HNT NIDDM not on meds Spinal stenosis Fractured left tibial plateau December, GERD ?? FH: Maternal first cousin with breast cancer Brother with rectal cancer Sister with PE ? SH: lives alone. Has good support from sisters who live in [place]. Non smoker. Has a son who lives [...] 71 yo female with radiographic stage I ER/NY+, HER2- IDC of the left breast. No [...] encounter Miscellaneous Notes * Op Note - Bratn Chen MD - 03/30/2017 12:27 PM EST [facility] Operative Note Patient Name: Digna Olson : [id number] MR#: [id number] Case Date: 03/30/2017 Surgeon: Surgeon(s) and Role: [...] highest [place] [address]. Remaining count within the axilla was 1982. [...] PATHOLOGY/CYTOLOGY ORDERABLES [facility] [place] [address] * Specimen to Pathology (surgical or derm) (03/30/2017 12:08 PM EST) AP Specimen 03/30/2017 12:0 8 PM EST 03/30/2017 12:08 PM EST Narrative [facility] - 03/30/2017 12:08 PM EST Specimen requisition ordered. ??Separate Pathology report to follow Brant Chen MD PATHOLOGY/CYTOLOGY ORDERABLES Performing Organization Address [facility] [place] [address] * Specimen to Pathology (surgical or derm) (03/30/2017 12:00 PM EST) AP Specimen 03/30/2017 12:0 0 PM EST 03/30/2017 12:00 PM EST Narrative [facility] - 03/30/2017 12:00 PM EST Specimen requisition ordered. ??Separate Pathology report to follow Brant Chen MD PATHOLOGY/CYTOLOGY ORDERABLES Performing Organization Address [facility] Co de Phone Number [place] [phone] * Specimen to Pathology (surgical or derm) (03/30/2017 11:51 AM EST) AP Specimen 03/30/2017 11:5 1 AM EST 03/30/2017 11:51 AM EST Narrative [facility] - 03/30/2017 11:51 AM EST Specimen requisition ordered. ??Separate Pathology report to follow Brant Chen MD PATHOLOGY/CYTOLOGY ORDERABLES Performing Organization Address [facility] [place] [address] * Surgical Pathology Report (03/30/2017 11:50 AM EST) Final Diagnosis [id number] ? Location: [facility]; [facility]; A The signing pathologist has (i) examined the relevant preparation(s) for the specimen(s) and (ii) rendered or confirmed the diagnosis(es). . ?Surgical Pathology DIAGNOSIS A,B - See Synoptic C - Left breast, Deep/lateral margin re-excision - ?Benign fatty breast tissue. D - Left breast, Superficial margin re-excision - ?Benign fatty breast tissue. See Note Note - [place] ink (indicating additional cranial margin) is also present on this superficial margin re-excision. ---- Specimen Parts: ?? A - Left axilliary sentinel node B - Left breast partial mastectomy Specimen ? Procedure: ??Excision with image-guided localization ? Lymph Node Sampling: ?? [place] lymph node(s) ? Specimen Laterality: ?? Left [...] not present in specimen Lymph Nodes ? [place] Lymph Nodes: ?? [place] lymph node biopsy performed ? Number of [place] Nodes Examined: ?3 ? Number of Lymph [...] Chávez DO Verified: ??04/01/2017 ?Pathologist Performed at: ??-[facility] Dept. of Pathology, [place], [place] CLINICAL INFORMATION Specimen Submitted: A - [...] there are ??no close margins. per [facility] Radiology . Specimen Description: According to [...] 0.8 x 0.4 x 0.4 cm. Color: [place] and yellow. Consistency: Soft. Location: Slices III and IV. Nearest Margin: 0.6 cm to the cranial margin. Other Margins: 0.8 cm to the deep margin, 1.0 cm to the superficial margin, ? > 2 cm from all other margins. OTHER Parenchyma: Predominately fatty with scant fibrous tissue. Wire/Clip: Biopsy marker clip identified within slice IV. SECTIONS/PROCESSI NG: (1) food service representative slice I, lateral margin; (2) slice III, lesion to cranial margin; (3-5) remainder of slice III; (6) slice IV, lesion to cranial margin (clip); (7-8) remainder of slice IV; (9) food service representative slice V; (10) food service representative slice X, medial margin. (R10) [...] PATHOLOGY/CYTOLOGY ORDERABLES [facility] [place] [address] * Mammo Direct Digital Left (03/30/2017 9:15 [...] Routine documented in this encounter Care Teams Front Load Trash Truck Driver Relationship Specialty Start Date End Date Ana Her MD [address] [place] [address] PCP - General 07/29/13 documented as of this encounter
--- OUTSIDE RECORDS SUMMARY | 2024-05-18 10:31 | XMS_ITS | Encounter Summary ---
[place] [address] Care Team Providers Care Cow Buyer Name Role Phone Ana Her MD Primary Care Provider [phone] Encounter Details Date Type Department Care Team (Late st Contact Info) Description 03/30/2017 11:19 AM EST Anesthesia Event [place] [address] Bridgette Mclaughlin MD Collins, Sarah J, TRAVEL SERVICE CONSULTANT [address] [place] [address] Anesthesia Record Procedure Summary Procedure Name Responsible [...] 0815; median cubital vein (antecubital fossa), right; adyb-atd-wnhtst catheter system; 20 gauge, 1 in length; [...] Bridgette Mclaughlin - 03/30/2017 2:13 PM EST [facility] Department of Anesthesiology Post-procedure Note Patient: Digna Olson Procedure Summary Date Anesthesia Start Anesthesia Stop Room / Location 03/30/17 1119 1239 [facility] OR 24 / MH MAIN [...] All Anesthesia Providers: Anesthesiologist: Bridgette Mclaughlin MD TRAVEL SERVICE CONSULTANT: Laura Koo CRNA Most Recent Vitals: 03/30/17 [...] risks discussed with patient. Plan discussed with TRAVEL SERVICE CONSULTANT. [facility] Staff Note documented in this encounter Plan [...] r documented in this encounter Care Teams Cow Buyer Relationship Specialty Start Date End Date Ana Her MD [facility] [address] [place] [address] PCP - General 07/29/13 documented as of this encounter
--- OUTSIDE RECORDS SUMMARY | 2024-05-18 10:31 | XMS_ITS | Encounter Summary ---
[place] [address] Care Team Providers Care Medical Officer Psychiatry Name Role Phone Ana Her MD Primary Care Provider [phone] Reason for Visit * Reason Comments Establish Care * Consultation (Routine) - Specialty Diagnoses / Procedures Referred By Christiano hackett Referred To Contact Hematology and Oncology Diagnoses Other abnormal and inconclusive findings on diagnostic imaging of breast abnormal mammo, left breast Jackie Cisneros, WEDNY [address] [place] [address] [facility] Hem Onc [address] [place] [address] Referral ID Status Reason Start Date Expiration Date V isits Requested Visits Authorized [id number] Consult, Test & Treat Connection Center 02/17/2017 05/20/2017 6 6 Encounter Details Date Type Department Care Team (Late st Contact Info) Description 03/03/2017 9:00 AM EDT Office [place] [address] Malika Chen MD [facility] [place] [address] Argentina Sanchez, RN Malignant neoplasm [...] Exercises handout created by physical therapists at [facility]. 7. Breast Cancer Treatment Process care map provided and reviewed. 8. Things to Consider...What I Wish I Knew advice from breast cancer patients handout provided. She verbalized understanding of the plan of care and states all her questions were answered. Twentyminutes was spent in education and providing support. Alma Delia has our contact information. She will call the digital program manager to schedule surgery after she has her [...] was obtained which revealed IDC which is ER/CA+, her2-. She has no known breast masses, no adenopathy, no nipple discharge. Alma Delia had a bone scan in [place] which was read as possible metastasis in the left tibia. Of note- she fractured this area recently. She has recovered well. PMH HNT NIDDM not on meds Spinal stenosis Fractured left tibial plateau December, GERD FH: Maternal first cousin with breast cancer Brother with rectal cancer Sister with PE SH: lives alone. Has good support from sisters who live in [place]. Non smoker. Has a son who lives [...] 71 yo female with radiographic stage I ER/CA+, HER2- IDC of the left breast. No [...] Date Ana Her MD [address] [place] [address] PCP - General 07/29/13 documented as of this encounter
--- OUTSIDE RECORDS SUMMARY | 2024-05-18 10:31 | XMS_ITS | Encounter Summary ---
Author Organization [facility] [place] [address] Care Team Providers Care Flat Lock Machine Operator Name Role Phone Ana Her MD Primary Care Provider [phone] Encounter Details Date Type Department Care Team (Late st Contact Info) Description 02/27/2017 Orders [place] [address] Malika Chen MD [facility] [address] Malignant neoplasm of left breast in female, [...] or in patients with acute kidney failure. [email or web address] Blood specimen (specimen) 03/03/2017 7:50 AM EDT 03/03/2017 8:03 AM EDT Narrative Resulting Agency Comment Spec In Lab Malika Chen MD CHEMISTRY ORDERABLE S [facility] [place] [address] documented in this encounter Visit Diagnoses Diagnosis Malignant neoplasm of left breast in female, estrogen receptor positive, unspecified site of breast documented in this encounter Care Teams Flat Lock Machine Operator Relationship Specialty Start Date End Date Ana Her MD [address] [facility] 1 [place] [address] PCP - General 07/29/13 documented as of this encounter
--- OUTSIDE RECORDS SUMMARY | 2024-05-18 10:31 | XMS_ITS | Encounter Summary ---
Author Organization [facility] [place] [address] Care Team Providers Care Chargeback Analyst Name Role Phone Ana Her MD Primary Care Provider [phone] Encounter Details Date Type Department Care Team (Latest Contact Info) Description 05/22/2020 10:46 AM EST - 05/22/2020 11:59 PM [facility] Hospital Encounter Mammography/[place] [phone] Jeanine Lobato APRN [facility] [place] [address] Malignant neoplasm of lower-outer quadrant of left [...] mammogram documented in this encounter Care Teams Chargeback Analyst Relationship Specialty Start Date End Date Aan Her MD [facility] [address] [facility] [address] [place] [address] PCP - General 07/29/13 documented as of this encounter
--- OUTSIDE RECORDS SUMMARY | 2024-05-18 10:31 | XMS_ITS | Encounter Summary ---
Author Organization [facility] [place] [address] Care Team Providers Care Personnel Quality Assurance Auditor Name Role Phone Ana Her MD Primary Care Provider [phone] Encounter Details Date Type Department Care Team (Late st Contact Info) Description 05/31/2019 1:00 PM EST Office Visit [place] [address] Jeanine Lobato STOCK PLAN ADMINISTRATOR [facility] [place] [address] Encounter for follow-up surveillance of breast cancer; [...] was obtained which revealed IDC which is ER/NH+, Her2-. She hasno known breast masses, no adenopathy, no nipple discharge. 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 He lives in [place]. She enjoys reading and cooking. She does [...] situation. Results: Imaging performed (bilateral mammogram) at [facility] today shows no evidence of [...] develop any new or concerning symptoms. Jeanine Lboato APRN Surgical Oncology P [phone] F [phone] [facility] documented in this encounter Plan of [...] mammogram documented in this encounter Care Teams Personnel Quality Assurance Auditor Relationship Specialty Start Date End Date Ana Her MD [facility] [address] [facility] 1 [place] [address] PCP - General 07/29/13 documented as of this encounter
--- OUTSIDE RECORDS SUMMARY | 2024-05-18 10:31 | XMS_ITS | Encounter Summary ---
Author Organization [facility] [place] [address] Care Team Providers Care General Counsel Name Role Phone Ana Her MD Primary Care Provider [phone] Encounter Details Date Type Department Care Team (Latest Contact Info) Description 03/30/2017 8:30 AM [facility] Hospital [place] [address] Malika Chen MD [facility] [place] [address] Malignant neoplasm of upper-outer quadrant of left [...] positive documented in this encounter Care Teams General Counsel Relationship Specialty Start Date End Date Ana Her MD [address] [place] [address] PCP - General 07/29/13 documented as of this encounter
--- OUTSIDE RECORDS SUMMARY | 2024-05-18 10:31 | XMS_ITS | Encounter Summary ---
[place] [address] Care Team Providers Care Crossing Flagman Name Role Phone Ana Her MD Primary Care Provider [phone] Encounter Details Date Type Department Care Team (Late st Contact Info) Description 05/10/2018 2:15 PM EST Office Visit [place] [address] Hiral Padgett, WENDY History of breast cancer [...] with image-guided localization ?Lymph Node Sampling: ?? [place] lymph node(s) ?Specimen Laterality: ?? Left Tumor [...] ?DCIS not present in specimen Lymph Nodes ?[place] Lymph Nodes: ?? [place] lymph node biopsy performed ?Number of [place] Nodes Examined: ?3 ?Number of Lymph Node(s) [...] mammogram today is cat 2. Leaving for [place] later today for a cardiac ablation/a fib at [facility]. Objective: Physical Exam Constitutional: She is oriented [...] breast documented in this encounter Care Teams Crossing Flagman Relationship Specialty Start Date End Date Ana Her MD [address] [place] [address] PCP - General 07/29/13 documented as of this encounter
--- OUTSIDE RECORDS SUMMARY | 2024-05-18 10:31 | XMS_ITS | Encounter Summary ---
Author Organization [facility] [place] [address] Care Team Providers Care Dentist Attendant Name Role Phone Ana Her MD Primary Care Provider [phone] Encounter Details Date Type Department Care Team (Late st Contact Info) Description 03/04/2017 Orders [place] [address] Malika Chen MD [facility] [place] [address] Malignant neoplasm of upper-outer quadrant of left [...] MD IMG MAMMO ORDERABLE S * Mammo [place] Node Injection (03/30/2017 9:01 AM EST) Anatomical [...] positive documented in this encounter Care Teams Dentist Attendant Relationship Specialty Start Date End Date Ana Her MD [address] [facility] 1 [place] [address] PCP - General 07/29/13 documented as of this encounter
--- OUTSIDE RECORDS SUMMARY | 2024-05-18 10:31 | XMS_ITS | Encounter Summary ---
[place] [address] Care Team Providers Care Milk Pickup Truck Driver Name Role Phone Ana Her MD Primary Care Provider [phone] Encounter Details Date Type Department Care Team (Late st Contact Info) Description 04/05/2018 Telephone [place] [address] Adrianna Jones Social History Tobacco Use Types [...] Padgett. Patient advises she is admitted at [facility] for afib and is pending procedure etc. Patient will call to reschedule once she is discharged home. documented in this encounter Plan of Treatment Not on file documented as of this encounter Visit Diagnoses Not on filedocumented in this encounter Care Teams Milk Pickup Truck Driver Relationship Specialty Start Date End Date Ana Her MD [address] [place] [address] PCP - General 07/29/13 documented as of this encounter
--- OUTSIDE RECORDS SUMMARY | 2024-05-18 10:32 | XMS_ITS | Encounter Summary ---
Author Organization [facility] [place] [address] Care Team Providers Care Territory Sales Representative Name Role Phone Ana Her MD Primary Care Provider [phone] Encounter Details Date Type Department Care Team (Latest Contact Info) Description 02/25/2017 1:36 PM EDT - 02/25/2017 2:58 PM EDT Hospital [place] [phone] Maryam Yee MD [facility] [place] [address] Abnormal mammogram Discharge Disposition: Home Social History [...] unspecified documented in this encounter Care Teams Territory Sales Representative Relationship Specialty Start Date End Date Ana Her MD [address] [place] [address] [address] [place] [address] PCP - General 07/29/13 documented as of this encounter
--- OUTSIDE RECORDS SUMMARY | 2024-05-18 10:32 | XMS_ITS | Encounter Summary ---
Author Organization [facility] Address [place] [address] Care Team Providers Care Metal Off Bearer Name Role Phone Unavailable Primary Care Provider Unavailabl e Encounter Details Date Type Department Care Team (Latest Contact Info) Description 11/12/2007 - 11/12/2007 11:59 PM EDT Hospital Encounter Radiology Library at [facility] [place] [address] Jackie Cisneros APRN [facility] [place] [address] Discharge Disposition: Home Social History Tobacco Use [...] Mammo (11/12/2007 12:00 AM EDT) Narrative [facility] - 02/23/2017 3:31 PM EDT This exam is for storage only and is auto-finalizing. Jackie Cisneros APRN IMG FILM LIBRARY ORD ERABLES NADINE Sethi documented in this encounter Visit Diagnoses Not on filedocumented in this encounter
--- OUTSIDE RECORDS SUMMARY | 2024-05-18 10:32 | XMS_ITS | Encounter Summary ---
[place] [address] Care Team Providers Care Circle Shear Operator Name Role Phone Ana Her MD Primary Care Provider [phone] 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 * Surgical (Routine) - Closed Specialty Diagnoses / Procedures Referred By Christiano hackett Referred To Contact Orthopaedics Diagnoses Lumbar spinal stenosis Michelle Hurtado APRN [facility] [place] [address] [facility] [place] [address] [place] [address] Referral ID Status Reason Start Date Expiration Date V isits Requested Visits Authorized [id number] Closed Consult, Test & Treat 09/08/2014 09/08/2015 3 3 Encounter Details Date Type Department Care Team (Late st Contact Info) Description 09/08/2014 Orders [place] [address] Michelle Hurtado MERCHANDISE EXECUTION LEAD[facility] [place] [address] Lumbar spinal stenosis Social History Tobacco Use [...] claudication documented in this encounter Care Teams Circle Shear Operator Relationship Specialty Start Date End Date Ana Her MD [facility] [address] [facility] 1 [place] [address] PCP - General 07/29/13 documented as of this encounter
--- OUTSIDE RECORDS SUMMARY | 2024-05-18 10:32 | XMS_ITS | Encounter Summary ---
[place] [address] Care Team Providers Care Hub Lead Name Role Phone Ana Her MD Primary Care Provider [phone] Reason for Visit * Reason Comments Low Back Pain Encounter Details Date Type Department Care Team (Late st Contact Info) Description 08/30/2014 8:35 AM EDT Office [place] [address] Michelle Hurtado APRN [facility] [address] Neurogenic claudication due to lumbar spinal stenosis [...] this encounter Progress Notes * Michelle Hurtado, NUCLEAR WEAPONS CUSTODIAN - 08/30/2014 9:37 AM EDT CHIEF COMPLAINT: [...] Treatments to date have included: LESIs in [place] at L4-5 in 2013-no relief, Flexeril-helpful, physical [...] 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 MEDICATIONS & [...] care of this patient. Michelle Hurtado MS, NUCLEAR WEAPONS CUSTODIAN, DIRECTOR OF MATERIALS-C [facility] documented in this encounter Plan of Treatment Not on file documented as of this encounter Visit Diagnoses Diagnosis Neurogenic claudication due to lumbar spinal stenosis Spinal stenosis, lumbar region, with neurogenic claudication documented in this encounter Care Teams Hub Lead Relationship Specialty Start Date End Date Ana Her MD [address] [place] [address] PCP - General 07/29/13 documented as of this encounter
--- OUTSIDE RECORDS SUMMARY | 2024-05-18 10:32 | XMS_ITS | Encounter Summary ---
Author Organization [facility] Address [facility] [place] [address] Care Team Providers Care Drop Wirer Name Role Phone Ana Her MD Primary Care Provider [phone] Encounter Details Date Type Department Care Team (Latest Contact Info) Description 04/24/2014 - 04/24/2014 11:59 PM EST Hospital Encounter Radiology Library at [facility] [place] [address] Maryam Yee MD [facility] [place] [address] Screening breast examination Discharge Disposition: Home Social [...] Only Mammo (04/24/2014 12:00 AM EST) Narrative [facility] - 02/19/2017 1:46 PM EDT This exam is for storage only and is auto-finalizing. Maryam Yee MD IMG FILM LIBRARY O RDERABLES [place], [place] documented in this encounter Visit Diagnoses Diagnosis Screening breast examination Other screening breast examination documented in this encounter Care Teams Drop Wirer Relationship Specialty Start Date End Date Ana Her MD [address] [facility] 1 [place] [address] PCP - General 07/29/13 documented as of this encounter
--- OUTSIDE RECORDS SUMMARY | 2024-05-18 10:32 | XMS_ITS | Encounter Summary ---
Author Organization [facility] Address [facility] [place] [address] Care Team Providers Care Oil And Gas Principal Name Role Phone Ana Her MD Primary Care Provider [phone] Encounter Details Date Type Department Care Team (Late st Contact Info) Description 09/13/2015 Interpretation Only Radiology [facility] [place] [address] Unknown None Social History Tobacco Use Types [...] 6:56 AM EDT APD Historical Result Principal Securities Settlement Processor: ??MAE ??ESCHBACH IMAGE-INTENSIFIER FILMS: INDICATION: ??Right L4 foraminotomy. FINDINGS: A total of 5.8 seconds of fluoro time was utilized by Geraldine Claros MD. ??Estimated dose is 5.96 mGy. ??Two image-intensifier films record the event. ??They show the lumbosacral junction in the lateral projection with a surgical instrument indicating the level of L4. ??No Radiologist was present for this exam. Mae Shelley DO TOBIN/mn [id number] Procedure Note Unknown - 11/01/2018 APD Historical Result Principal Securities Settlement Processor: MAE SHELLEY IMAGE-INTENSIFIER FILMS: INDICATION: Right L4 foraminotomy. FINDINGS: A total of 5.8 seconds of fluoro time was utilized by Geraldine Claros MD. Estimated dose is 5.96 mGy. Two image-intensifier films record the event. They show thelumbosacral junction in the lateral projection with a surgical instrument indicating the level of L4.No Radiologist was present for this exam. Mae Shelley DO TOBIN/mn [id number] Unknown IMG FLUORO ORDERABLE S documented in this encounter Visit Diagnoses Not on filedocumented in this encounter Care Teams Oil And Gas Principal Relationship Specialty Start Date End Date Ana Her MD [address] [place] [address] PCP - General 07/29/13 documented as of this encounter
--- OUTSIDE RECORDS SUMMARY | 2024-05-18 10:32 | XMS_ITS | Encounter Summary ---
Author Organization [facility] Address [address] [place] [address] Care Team Providers Care Optical Fabrication Technician Name Role Phone Unknown, Provider MD Primary Care Provider Unava ilable Encounter Details Date Type Department Care Team (Late st Contact Info) Description 04/06/2022 Lab Requisition [facility] Pathology & Laboratory Medicine - [facility] [address] [place] [address] Outr Resulting Lab, Provider Social History Tobacco [...] Salmonella PCR Negative Negative 04/06/2022 22:54 EST [facility] Shigella/Enteroin vasive E. coli Negative Negative 04/06/2022 22:54 EST [facility] HN LAB CAMPYLOBACTER PCR Negative Negative 04/06/2022 22:54 EST [facility] Shiga Toxin PCR Negative Negative 22:54 EST [facility] Feces SPECIMEN FROM RECTUM / Unknown 04/05/2022 10:41 EST 04/06/2022 18:31 EST us Provider Outr Resulting Lab MICROBIOLOGY - GENER AL ORDERABLES Final Result [facility] [address] [place] [address] documented in this encounter Visit Diagnoses Not on filedocumented in this encounter Care Teams Optical Fabrication Technician Relationship Specialty Start Date End Date Unknown, Provider, PCP - General 01/13/14 documented as of this encounter
--- OUTSIDE RECORDS SUMMARY | 2024-05-18 10:32 | XMS_ITS | Encounter Summary ---
Author Organization [facility] Address [facility] [place] [address] Care Team Providers Care Dosimetrist Name Role Phone Unavailable Primary Care Provider Unavailabl e Encounter Details Date Type Department Care Team (Latest Contact Info) Description 01/29/2013 - 01/29/2013 11:59 PM EDT Hospital Encounter Radiology Library at [facility] [place] [address] Jackie Cisneros APRN [facility] [place] [address] [place] [address] Discharge Disposition: Home Social History Tobacco Use [...] Only Mammo (01/29/2013 12:00 AM EDT) Narrative [facility] - 02/23/2017 3:26 PM EDT This exam is for storage only and is auto-finalizing. Jackie Cisneros APRN IMG FILM LIBRARY ORD ERABLES NADINE Sethi documented in this encounter Visit Diagnoses Not on filedocumented in this encounter
--- OUTSIDE RECORDS SUMMARY | 2024-05-18 10:32 | XMS_ITS | Encounter Summary ---
Author Organization [facility] Address [facility] [place] [address] Care Team Providers Care Record Press Operator Name Role Phone Ana Her MD Primary Care Provider [phone] Encounter Details Date Type Department Care Team (Latest Contact Info) Description 02/23/2017 3:50 PM EDT - 02/23/2017 11:59 PM EDT Hospital Encounter Radiology Library [place] [id number] Jackie Cisneros APRN [address] [place] [address] Left breast mass Discharge Disposition: Home Social [...] recommended. Please note: The interpretation of the [facility] Breast Imaging Radiologist subspecialist may differ from the original radiologists interpretation. This is usually not due to a deficiency of the original interpreting radiologist, rather due to the greater skill level afforded by sub-specialization in the field and/or reasonable variations in interpretations. If you have a concern regarding the D-H interpretation you may contact the [facility] Office at . I have personally reviewed [...] the care of this patient. STUDIES FROM: [facility] DATES: Screening mammogram 02/12/2017, diagnostic [...] alter the care of thispatient. STUDIES FROM: [facility] DATES: Screening mammogram 02/12/2017, diagnostic [...] recommended. Please note: The interpretation of the [facility] BreastImaging Radiologist subspecialist may differ from the original radiologists interpretation. This is usually not due to a deficiency of the original interpreting radiologist, rather due to the greater skill level affordedby sub-specialization in the field and/or reasonable variations ininterpretations. If you have a concern regarding the D-H interpretation [facility] at . I have personally reviewed the image(s) and the residents interpretationand agree with the findings, ROBERT THOMPSON at 02/24/2017 8:41 AM 8:41 AM Jackie Cisneros WENDY IMG OUTSIDE INTERPRE TATION ORDERABLES documented in this encounter Visit Diagnoses Diagnosis Left breast mass Lump or mass in breast documented in this encounter Care Teams Record Press Operator Relationship Specialty Start Date End Date Ana Her MD [address] [place] [address] PCP - General 07/29/13 documented as of this encounter
--- OUTSIDE RECORDS SUMMARY | 2024-05-18 10:32 | XMS_ITS | Clinical Summary ---
Author Organization [facility] Address [address] [place] [address] Care Team Providers Care Foreign Food Cook Specialty Name Role Phone Unknown, Provider MD Primary [...] COVID-19 Vaccine (2023- season) 2024 Care Teams Foreign Food Cook Specialty Relationship Specialty Start Date End Date Unknown, Provider, PCP - General 01/13/14
--- OUTSIDE RECORDS SUMMARY | 2024-05-18 10:32 | XMS_ITS | Encounter Summary ---
Author Organization [facility] Address [facility] [place] [address] Care Team Providers Care Manager Diesel Name Role Phone Ana Her MD Primary Care Provider [phone] Encounter Details Date Type Department Care Team (Latest Contact Info) Description 02/12/2017 - 02/12/2017 11:59 PM EDT Hospital Encounter Radiology Library at [facility] [place] [address] Maryam Yee MD [facility] [place] [address] Screening breast examination Discharge Disposition: Home Social [...] Mammo (02/12/2017 12:00 AM EDT) Narrative [facility] - 02/19/2017 1:47 PM EDT This exam is for storage only and is auto-finalizing. Maryam Yee MD IMG FILM LIBRARY O RDERABLES Performing Organization Address City/State/[facility] Co de Phone Number [place], [place] documented in this encounter Visit Diagnoses Diagnosis Screening breast examination Other screening breast examination documented in this encounter Care Teams Manager Diesel Relationship Specialty Start Date End Date Ana Her MD [address] [place] [address] PCP - General 07/29/13 documented as of this encounter
--- OUTSIDE RECORDS SUMMARY | 2024-05-18 10:32 | XMS_ITS | Encounter Summary ---
Author Organization [facility] Address [facility] [place] [address] Care Team Providers Care Box Sealing Machine Catcher Name Role Phone Unavailable Primary Care Provider Unavailabl e Encounter Details Date Type Department Care Team (Latest Contact Info) Description 12/08/2008 - 12/08/2008 11:59 PM EDT Hospital Encounter Radiology Library at [facility] [place] [address] Jackie Cisneros APRN [facility] [place] [address] [place] [address] Discharge Disposition: Home Social History Tobacco Use [...] Only Mammo (12/08/2008 12:00 AM EDT) Narrative [facility] - 02/23/2017 3:30 PM EDT This exam is for storage only and is auto-finalizing. Jackie Cisneros APRN IMG FILM LIBRARY ORD ERABLES NADINE Sethi documented in this encounter Visit Diagnoses Not on filedocumented in this encounter
--- OUTSIDE RECORDS SUMMARY | 2024-05-18 10:32 | XMS_ITS | Encounter Summary ---
Author Organization [facility] Address [facility] [place] [address] Care Team Providers Care Carbon Capture Power Plant Engineer Name Role Phone Ana Her MD Primary Care Provider [phone] Encounter Details Date Type Department Care Team (Latest Contact Info) Description 10/28/2016 - 10/28/2016 11:59 PM EDT Hospital Encounter Radiology Library [place] [facility] [place] [address] Ricky Lowry MD Discharge Disposition: Home Social [...] DXA Images (10/28/2016 12:00 AM EDT) Narrative [facility] - 04/24/2017 2:13 PM EST This exam is for storage only and is auto-finalizing. Ricky Lowry MD IMG FILM LIBRARY ORD ERABLES Performing Organization Address City/State/[facility] Co de Phone Number [place], [place] documented in this encounter Visit Diagnoses Not on filedocumented in this encounter Care Teams Carbon Capture Power Plant Engineer Relationship Specialty Start Date End Date Ana Her MD [address] [place] [address] PCP - General 07/29/13 documented as of this encounter
--- OUTSIDE RECORDS SUMMARY | 2024-05-18 10:32 | XMS_ITS | Encounter Summary ---
Author Organization [facility] [place] [address] Care Team Providers Care Interventional Nurse Name Role Phone Ana Her MD Primary Care Provider [phone] Encounter Details Date Type Department Care Team (Late st Contact Info) Description 08/16/2014 Orders Only Functional Quaker Program at [facility] [address] [place] [address] Khari Martínez MD Social History Tobacco Use [...] on filedocumented in this encounter Care Teams Interventional Nurse Relationship Specialty Start Date End Date Ana Her MD [facility] [address] [facility] [address] [place] [address] PCP - General 07/29/13 documented as of this encounter
--- OUTSIDE RECORDS SUMMARY | 2024-05-18 10:32 | XMS_ITS | Encounter Summary ---
Author Organization [facility] Address [address] [place] [address] Care Team Providers Care Community Center Worker Name Role Phone Unavailable Primary Care Provider Unavailabl e Encounter Details Date Type Department Care Team (Latest Contact Info) Description 01/10/2014 20:50 EDT - 01/10/2014 23:59 EDT Hospital Encounter [facility] [address] [place] [address] Unknown, Provider, MD Discharge Disposition: Home or [...]
--- OUTSIDE RECORDS SUMMARY | 2024-05-18 10:32 | XMS_ITS | Encounter Summary ---
[place] [address] Care Team Providers Care Airline Reservation Agent Name Role Phone Ana Her MD Primary Care Provider [phone] Encounter Details Date Type Department Care Team (Late st Contact Info) Description 07/26/2013 [place] [address] Ana Her MD [facility] [address] [place] [address] Social History Tobacco Use Types Packs/Day Years [...] is a Non-reportable exam Ana Her MD [facility] FILM LIBRARY ORD ERABLES documented in this encounter Visit Diagnoses Not on filedocumented in this encounter Care Teams Airline Reservation Agent Relationship Specialty Start Date End Date Ana Her MD [address] [place] [address] PCP - General 07/29/13 documented as of this encounter
--- OUTSIDE RECORDS SUMMARY | 2024-05-18 10:32 | XMS_ITS | Encounter Summary ---
Author Organization [facility] Address [facility] [place] [address] Care Team Providers Care Service Desk Agent Name Role Phone Ana Her MD Primary Care Provider [phone] Encounter Details Date Type Department Care Team (Latest Contact Info) Description 02/17/2017 - 02/17/2017 12:14 AM EDT Hospital Encounter Radiology Library at [facility] [place] [address] Maryam Yee MD [facility] [place] [address] Screening breast examination Discharge Disposition: Home Social [...] LIBRARY O RDERABLES Performing Organization Address City/State/[facility] Co de Phone Number [place], [place] documented in this encounter Visit Diagnoses Diagnosis Screening breast examination Other screening breast examination documented in this encounter Care Teams Service Desk Agent Relationship Specialty Start Date End Date Ana Her MD [address] [place] [address] PCP - General 07/29/13 documented as of this encounter
--- OUTSIDE RECORDS SUMMARY | 2024-05-18 10:32 | XMS_ITS | Encounter Summary ---
Author Organization [facility] [place] [address] Care Team Providers Care Two Way Radio Technician Name Role Phone Ana Her MD Primary Care Provider [phone] Encounter Details Date Type Department Care Team (Latest Contact Info) Description 02/25/2017 1:32 PM EDT - 02/25/2017 1:35 PM EDT Hospital [place] [phone] Maryam Yee MD [facility] DR [place] [address] Abnormal mammogram Discharge Disposition: Home Social History [...] injection 20 mg, 20 mg, Intradermal, Once, Dvean Burkett MD Anticoagulation status: aspirin stopped on: [...] PATHOLOGY/CYTOLOGY O [facility] [place] [address] documented in this encounter Visit Diagnoses Diagnosis [...] mg documented in this encounter Care Teams Two Way Radio Technician Relationship Specialty Start Date End Date Ana Her MD [address] [place] [address] PCP - General 07/29/13 documented as of this encounter
--- OUTSIDE RECORDS SUMMARY | 2024-05-18 10:32 | XMS_ITS | Encounter Summary ---
Author Organization [facility] Address [facility] [place] [address] Care Team Providers Care Embedded Software Architect Name Role Phone Unavailable Primary Care Provider Unavailabl e Encounter Details Date Type Department Care Team (Latest Contact Info) Description 04/04/2005 - 04/04/2005 11:59 PM EST Hospital Encounter Radiology Library at [facility] [place] [address] Jackie Cisneros APRN [facility] [place] [address] [place] [address] Discharge Disposition: Home Social History Tobacco Use [...]
--- OUTSIDE RECORDS SUMMARY | 2024-05-18 10:32 | XMS_ITS | Encounter Summary ---
Author Organization [facility] [place] [address] Care Team Providers Care Chain Hoist Operator Name Role Phone Ana Her MD Primary Care Provider [phone] Encounter Details Date Type Department Care Team (Latest Contact Info) Description 02/17/2017 12:15 AM EDT - 02/17/2017 11:59 PM EDT Hospital Encounter Radiology Library [place] [facility] [place] [phone] Maryam Yee MD [facility] [place] [address] Screening breast examination Discharge Disposition: Home Social [...] Only Mammo (02/17/2017 12:15 AM EDT) Narrative [facility] - 02/19/2017 2:01 PM EDT This exam is for storage only and is auto-finalizing. Maryam Yee MD IMG FILM LIBRARY O RDERABLES [place], [place] documented in this encounter Visit Diagnoses Diagnosis Screening breast examination Other screening breast examination documented in this encounter Care Teams Chain Hoist Operator Relationship Specialty Start Date End Date Ana Her MD [address] [place] [address] PCP - General 07/29/13 documented as of this encounter
--- OUTSIDE RECORDS SUMMARY | 2024-05-18 10:32 | XMS_ITS | Encounter Summary ---
Author Organization [facility] [place] [address] Care Team Providers Care Music Industry Intern Name Role Phone Ana Her MD Primary Care Provider [phone] Encounter Details Date Type Department Care Team (Latest Contact Info) Description 02/25/2017 2:59 PM EDT - 02/25/2017 11:59 PM EDT Hospital [place] [phone] Enzo Burkett MD Abnormal finding on breast [...] invasive carcinoma. Enzo Burkett MD [facility] MAMMO ORDERABLES * Surgical Pathology Report (02/25/2017 3:01 PM EDT) Final Diagnosis [id number] ? Location: 3L The signing pathologist has [...] FISH. ??Direct analysis was performed using the SI2 - Sistema de Informação do Investidor Kit. ??Slide adequacy and signal enumeration were [...] factor receptor 2 testing in breast cancer: French Society of Clinical Oncology/College of French Pathologists clinical practice guideline update. J Clin Oncol. 2013 Nov . Reviewed by: Kyara Logan MD Field Rep, Molecular Pathology _ Electronically signed by: ??Epifanio Serra MD Verified: ??03/04/2017 ?Pathologist Performed at: ??-[facility] Dept. of Pathology, [place], [place] ? Addendum ADDENDUM DISCUSSION Immunohistochemist ry Studies Specimen: Left breast, core needle biopsy (A1) ER immunoreactivity: Positive ( ??>90% cancer cells with immunostaining) Stain intensity: Strong . ADDENDUM DISCUSSION OH immunoreactivity: Positive ( ??>90% cancer cells with [...] The assays were performed according to the reading aide ' s instructions using Anti-ER (SP1) and Anti-OH (16) antibodies. Electronically signed by: ??Epifanio Serra MD Verified: ??02/27/2017 ?Pathologist Performed at: ??-[facility] Dept. 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 of Pathology, [place], [place] DISCUSSION Studies for ER, OH, and HER2 have been ordered; results will [...] g: (T4) ??elian 03/04/2017 2:01 PM EDT [facility] BREAST STRUCTURE / Unknown 02/25/2017 3:01 PM EDT 02/25/2017 3:01 PM EDT Enzo Burkett MD PATHOLOGY/CYTOLOGY O RDERABLES [facility] [place] [address] documented in this encounter Visit Diagnoses Diagnosis Abnormal finding on breast imaging Other (abnormal) findings on radiological examination of breast documented in this encounter Care Teams Music Industry Intern Relationship Specialty Start Date End Date Ana Her MD [address] [place] [address] PCP - General 07/29/13 documented as of this encounter
--- OUTSIDE RECORDS SUMMARY | 2024-05-18 10:32 | XMS_ITS | Encounter Summary ---
Author Organization [facility] Address [address] [place] [address] Care Team Providers Care Mechanical Development Engineer Name Role Phone Unknown, Provider Primary Care Provider Unava ilable Encounter Details Date Type Department Care Team (Late st Contact Info) Description 01/20/2020 Lab Requisition [facility] Pathology & Laboratory Medicine - [facility] [address] [place] [address] Outr Resulting Lab, Provider Social History Tobacco [...] rt-PCR Result NEGATIVE Negative 01/21/2020 16:10 EDT [facility] Comment: 2019-novel Coronavirus (2019-nCoV) [...] AL ORDERABLES Final Result Performing Organization Address City/State/[facility] Co de Phone Number [facility] [place], [place] * COVID-19 TESTING (01/20/2020 10:30 EDT) COVID-19 rt-PCR Result NEGATIVE Negative 01/21/2020 17:21 EDT [facility] Comment: 2019-novel Coronavirus (2019-nCoV) not detected [...] Administration's Emergency Use Authorization. Performing Lab [facility] 01/21/2020 17:21 EDT [facility] Swab 01/20/2020 10:3 0 EDT 01/20/2020 15:35 EDT us Provider Outr Resulting Lab MICROBIOLOGY - GENER AL ORDERABLES Final Result [facility] [address] [place] [address] [facility] [place], [place] documented in this encounter Visit Diagnoses Not on filedocumented in this encounter Care Teams Mechanical Development Engineer Relationship Specialty Start Date End Date Unknown, Provider, PCP - General 01/13/14 documented as of this encounter
--- OUTSIDE RECORDS SUMMARY | 2024-05-18 10:32 | XMS_ITS | Encounter Summary ---
[place] [address] Care Team Providers Care Reliability Technician Name Role Phone Ana Her MD Primary Care Provider [phone] Reason for Visit * Reason Onset Date Comments Referral 07/29/2013 Encounter Details Date Type Department Care Team (Late st Contact Info) Description 07/29/2013 Telephone [place] [phone] Sophia Palacios Referral Social History Tobacco Use Types Packs/Day Years Used Date Smoking Tobacco: Never Assessed Sex and Gender Information Value Date Recorded Sex Assigned at Not on file Gender Identity Not on file Sexual Orientation Not on file documented as of this encounter Miscellaneous Notes * Telephone Encounter - Angela Lianres - 08/04/2013 8:12 AM EDT Sent letter [...] on filedocumented in this encounter Care Teams Reliability Technician Relationship Specialty Start Date End Date Ana Her MD [address] [facility] 1 [place] [address] PCP - General 07/29/13 documented as of this encounter
--- OUTSIDE RECORDS SUMMARY | 2024-05-18 10:32 | XMS_ITS | Encounter Summary ---
Author Organization [facility] Address [facility] [place] [address] Care Team Providers Care Iron Worker Apprentice Name Role Phone Unavailable Primary Care Provider Unavailabl e Encounter Details Date Type Department Care Team (Latest Contact Info) Description 03/19/2006 - 03/19/2006 11:59 PM EST Hospital Encounter Radiology Library [place] [facility] [place] [address] Jackie Cisneros APRN [facility] [address] [place] [address] Discharge Disposition: Home Social History Tobacco Use [...]
--- OUTSIDE RECORDS SUMMARY | 2024-05-18 10:32 | XMS_ITS | Encounter Summary ---
Author Organization [facility] Address [address] [place] [address] Care Team Providers Care Coating Engineer Name Role Phone Unknown, Provider MD Primary Care Provider Unava ilable Encounter Details Date Type Department Care Team (Late st Contact Info) Description 11/19/2023 Lab Requisition [facility] Pathology & Laboratory Medicine - [facility] [address] [place], [place] [address] Outr Resulting Lab, Provider Social History Tobacco [...] 352 mg/dL 11/20/2023 9:45 EDT [facility] Blood VENOUS BLOOD / Unknown 11/19/2023 6:05 EDT 11/19/2023 17:32 EDT us Provider Outr Resulting Lab CHEMISTRY & BLOOD GA S ORDERABLES Final Result [facility] [address] [place], [place] [address] documented in this encounter Visit Diagnoses Not on filedocumented in this encounter Care Teams Coating Engineer Relationship Specialty Start Date End Date Unknown, Provider, PCP - General 01/13/14 documented as of this encounter
--- OUTSIDE RECORDS SUMMARY | 2024-05-18 10:32 | XMS_ITS | Encounter Summary ---
Author Organization [facility] Address [address] [place] [address] Care Team Providers Care Business Systems Analyst Name Role Phone Unknown, Provider MD Primary Care Provider Unava ilable Encounter Details Date Type Department Care Team (Late st Contact Info) Description 10/26/2022 Lab Requisition [facility] Pathology & Laboratory Medicine - [facility] [address] [place] [address] Outr Resulting Lab, Provider Social History Tobacco [...] Neg and Giardia Antigen Neg 13:48 EDT [facility] Feces SPECIMEN FROM RECTUM / Unknown 10/25/2022 15:00 EDT 10/26/2022 15:25 EDT us Provider Outr Resulting Lab MICROBIOLOGY - GENER AL ORDERABLES Final Result [facility] [address] [place] [address] * FECAL BACTERIAL PATHOGENS BY PCR (10/25/2022 15:00 EDT) Salmonella PCR Negative Negative 10/26/2022 19:17 EDT [facility] Shigella/Enteroin vasive E. coli Negative Negative 10/26/2022 19:17 EDT [facility] HN LAB CAMPYLOBACTER PCR Negative Negative 10/26/2022 19:17 EDT [facility] Shiga Toxin PCR Negative Negative 19:17 EDT [facility] Feces SPECIMEN FROM RECTUM / Unknown 10/25/2022 15:00 EDT 10/26/2022 15:25 EDT us Provider Outr Resulting Lab MICROBIOLOGY - GENER AL ORDERABLES Final Result Performing Organization Address [facility] Co de Phone Number [facility] [address] [place] [address] * OVA/PARASITE EXAM (10/25/2022 15:00 EDT) Parasite No ova and parasites seen. 10/28/2022 15:08 EDT [facility] Feces SPECIMEN FROM RECTUM / Unknown 10/25/2022 15:00 EDT 10/26/2022 15:25 EDT Narrative [facility] - 10/28/2022 15:08 EDT (If Cryptosporidium, Cyclospora, or Microsporidium are suspected, specific tests must be requested.) Single negative specimen does not rule out the possibility of a parasitic infection. us Provider Outr Resulting Lab MICROBIOLOGY - GENER AL ORDERABLES Final Result Performing Organization Address City/[facility]/ZIP Co de Phone Number [facility] [address] [place] [address] documented in this encounter Visit Diagnoses Not on filedocumented in this encounter Care Teams Business Systems Analyst Relationship Specialty Start Date End Date Unknown, Provider, PCP - General 9/12/14 documented as of this encounter
--- OUTSIDE RECORDS SUMMARY | 2024-05-18 10:32 | XMS_ITS | Referral Summary ---
Author Organization [facility] Address [address] [place] [address] Care Team Providers Care Chinese Herbalist Name Role Phone Unknown, Provider MD Primary Care Provider Unava ilable Social History Tobacco Use Types Packs/Day Years Used Date Smoking Tobacco: Never Assessed Comments Unknown Sex and Gender Information Value Date Recorded Sex Assigned at Not on file Legal Sex Female 9:32 EDT Gender Identity Not on file Sexual Orientation Not on file Plan of Treatment Not on file Care Teams Chinese Herbalist Relationship Specialty Start Date End Date Unknown, Provider, PCP - General 01/13/14
--- OUTSIDE RECORDS SUMMARY | 2024-05-18 10:32 | XMS_ITS | Encounter Summary ---
Author Organization [facility] [place] [address] Care Team Providers Care Health Concierge Name Role Phone Ana Her MD Primary Care Provider [phone] Encounter Details Date Type Department Care Team (Latest Contact Info) Description 02/25/2017 1:31 PM EDT Hospital [place] [address] Maryam Yee MD [facility] [place] [address] Abnormal mammogram Discharge Disposition: Home Social History [...] unspecified documented in this encounter Care Teams Health Concierge Relationship Specialty Start Date End Date Ana Her MD [address] [place] [address] PCP - General 07/29/13 documented as of this encounter
--- OUTSIDE RECORDS SUMMARY | 2024-05-18 10:32 | XMS_ITS | Encounter Summary ---
Author Organization [facility] Address [facility] [place] [address] Care Team Providers Care Traffic Operations Manager Name Role Phone Unavailable Primary Care Provider Unavailabl e Encounter Details Date Type Department Care Team (Latest Contact Info) Description 12/25/2010 - 12/25/2010 11:59 PM EDT Hospital Encounter Radiology Library [place] [address] Jackie Cisneros APRN [facility] [place] [place] [address] Discharge Disposition: Home Social History Tobacco Use [...] Mammo (12/25/2010 12:00 AM EDT) Narrative [facility] - 02/23/2017 3:27 PM EDT This exam is for storage only and is auto-finalizing. Jackie Cisneros APRN IMG FILM LIBRARY ORD ERABLES NADINE Sethi documented in this encounter Visit Diagnoses Not on filedocumented in this encounter
--- OUTSIDE RECORDS SUMMARY | 2024-05-18 10:32 | XMS_ITS | Encounter Summary ---
[place] [address] Care Team Providers Care Manager Ob Name Role Phone Ana Her MD Primary Care Provider [phone] Reason for Visit * Reason Comments Low Back Pain Bilateral Hip Pain when standing or wal jaquelin Encounter Details Date Type Department Care Team (Late st Contact Info) Description 09/12/2014 11:20 AM EDT Office [place] [id number] Kris Benoit MD Neurogenic claudication due to [...] pain free. Lumbar MRI from 08/16/[address] [facility] is notable for multilevel degenerative changes L2-L3, L3-L4, L4-L5, L5-S1. At L2-L3, she has [id number]-[id number]-mczrta spinal stenosis, but she has no leg [...] claudication documented in this encounter Care Teams Manager Ob Relationship Specialty Start Date End Date Ana Her MD [address] [place] [address] PCP - General 07/29/13 documented as of this encounter
--- OUTSIDE RECORDS SUMMARY | 2024-05-18 10:32 | XMS_ITS | Encounter Summary ---
Author Organization [facility] Address [address] [place] [address] Care Team Providers Care Business Functional Analyst Name Role Phone Unknown, Provider MD Primary Care Provider Unava ilable Encounter Details Date Type Department Care Team (Late st Contact Info) Description 08/12/[address] [facility] Pathology & Laboratory Medicine - [facility] [address] [place] [address] Outr Resulting Lab, Provider Social History Tobacco [...] in this encounter Results * COVID-19 TEST [facility] (08/12/2021 15:00 EDT) Swab 08/12/2021 15:0 0 EDT 08/13/2021 16:56 EDT us Provider Outr Resulting Lab MICROBIOLOGY - GENER AL ORDERABLES Final Result [facility] [address] [place] [address] * COVID-19 TESTING (08/12/2021 15:00 EDT) COVID-19 rt-PCR Result Negative Negative 08/14/2021 11:53 EDT [facility] Comment: This test has [...] was performed using the palomo SARS-CoV-2 assay ([employer] on the Palomo 6800 System Performing Lab [facility] [address] [facility] Lab 08/14/2021 11:53 EDT [facility] Swab 08/12/2021 15:0 0 EDT 08/13/2021 16:56 EDT us Provider Outr Resulting Lab MICROBIOLOGY - GENER AL ORDERABLES Final Result [facility] [address] [place] [address] documented in this encounter Visit Diagnoses Not on filedocumented in this encounter Care Teams Business Functional Analyst Relationship Specialty Start Date End Date Unknown, Provider, PCP - General 01/13/14 documented as of this encounter
--- OUTSIDE RECORDS SUMMARY | 2024-05-18 10:32 | XMS_ITS | Encounter Summary ---
Author Organization [facility] Address [address] [place] [address] Care Team Providers Care Compensation Coordinator Name Role Phone Unknown, Provider Primary Care Provider Unava ilable Encounter Details Date Type Department Care Team (Late st Contact Info) Description 03/17/2017 Results Only [facility] [phone] Kat Lazaro MD [facility] [facility] [address] [place], [place] [id number] Social History Tobacco Use Types Packs/Day Years [...] ? DIGNA KIMBROUGH ? Accession #: ? [id number] ? : ? 1945 (Age: 71) ??F [...] (ASCP) 03/18/2017 8:14 AM End of Report [facility] 03/17/2017 16:1 5 EST 03/17/2017 16:15 EST us Kat Lazaro MD PATHOLOGY ORDERABLES Fin al Result [facility] [address] [place] [address] documented in this encounter Visit Diagnoses Not on filedocumented in this encounter Care Teams Compensation Coordinator Relationship Specialty Start Date End Date Unknown, Provider, PCP - General 01/13/14 documented as of this encounter
--- OUTSIDE RECORDS SUMMARY | 2024-05-18 10:32 | XMS_ITS | Encounter Summary ---
Author Organization [facility] Address [facility] [place] [address] Care Team Providers Care Commercial Energy Auditor Name Role Phone Unavailable Primary Care Provider Unavailabl e Encounter Details Date Type Department Care Team (Latest Contact Info) Description 12/19/2009 - 12/19/2009 11:59 PM EDT Hospital Encounter Radiology Library at [facility] [place] [place] [address] Jackie Cisneros APRN [facility] [place] [place] [address] Discharge Disposition: Home Social History Tobacco Use [...] Only Mammo (12/19/2009 12:00 AM EDT) Narrative [facility] - 02/23/2017 3:29 PM EDT This exam is for storage only and is auto-finalizing. Jackie Cisneros APRN IMG FILM LIBRARY ORD ERABLES NADINE Sethi documented in this encounter Visit Diagnoses Not on filedocumented in this encounter
--- OUTSIDE RECORDS SUMMARY | 2024-05-20 10:28 | XMS_ITS | Continuity of Care Document ---
Author Organization [facility], [facility] [place] [address] Care Team Providers Care Philosophy Lecturer Name Role Phone GABINODC Corrections Identification Technician [facility] Orthopedic Surgeon [phone] [facility]ORD[facility] Sleep Medicine [facility] Rotary Lithographic Press Operator Assessment Encounter Date Assessment Date Assessment LastModified by Organization Details LastModified Time 03/04/2024 03/04/2024 The total time devoted to today's encounter, including both the kgoy-pn-sxrg time with the patient and/or family/caregi josefina and hqt-ogfk-ua-f patrick time I personally spent is 44 minutes. Not available 03/04/2024 17:47:18 Plan of Treatment Reminders Order Date Submit Date Provider Last Modified By Organization Details Last Modified Time Details Appointments Follow Up 2024 01:20P Allan Her Not available Not available Not available Lab BMP, serum or plasma 2023 024 [facility] (Registration ), [facility] [facility] [place], [address], 04/19/2024 11:42:49 vitamin D, 25-hydrox y, total, serum 2023 024 [facility] (Registration ), [address] [facility] [place], [address], 04/18/2024 16:09:19 HbA1c (hemoglob in A1c), blood 2023 [facility] (Registration ), [address] [place] [address] [place], [address], 04/19/2024 11:39:49 TSH, serum, reflex free T4 2023 024 [facility] (Registration ), [address] [place] [address] [place], [address], 04/19/2024 11:40:25 CBC 2023 [facility] (Registration ), [address] [place] [address] [place], [address], 04/18/2024 15:08:25 ferritin, serum or plasma 2023 [facility] (Registration ), [address] [place] [address] [place], [address], 04/19/2024 11:41:22 iron + total iron-bind ing capacity (TIBC), serum 2023 [facility] (Registration ), [address] [place] [address] [place], [address], 04/19/2024 11:43:17 Referral None recorded. Procedures None recorded. Surgeries None recorded. Imaging None recorded. Medication Orders hydromorp ricky 2 mg tablet 2023 024 [facility], [address] [place], [address], 03/04/2024 15:12:30 levothyro xine 75 mcg tablet 2023 024 [email or web address], [address] [place], [address], 03/04/2024 16:32:19 Patient TargetsNo targets recorded. Patient InstructionsNo instructions recorded. 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 None Reported. Problems Name Problem SNOMED Code Status Onset Date Resolution Date Notes Provider Name and Address Organization Details Recorded Time Osteopor otic fracture Active 2023 Zoledron ate started at time of humeral fracture 2023- MD [address], [place], [address] , [facility] 4 17:34:10 Hypothyr oidism 43242058 Active 1959 EVIE shaw, [facility] 4 10:29:59 Essentia l hyperten jason 92458069 Active 1959 EVIE shaw, [facility] 4 10:29:36 Hyperlip idemia 23266962 Active 1959 on statin MD [address], [place], [address] , [facility] 4 20:35:18 Spinal stenosis of lumbar region 60510682 Active 2012 s/p lumbar foramino parish L4 MD [address], [place], [address] , [facility] 4 20:36:41 Sleep apnea 47999844 Active 2012 on CPAP MD [address], [place], [address] , [facility] 4 20:39:31 Gastroes ophageal reflux disease without esophagi tis 619513909 Completed 195908/12/2023 Removal Reason: resolved with surgical repair of HH MD [address], [place], [address] , [facility] 4 10:41:24 Family history of malignan t neoplasm of digestiv e organ 425895397 Active [address], [place], [address] , [facility] 4 20:37:03 Paresthe samir 60092941 Completed 201412/01/2014 11/28/19 15 - Comments only - Ana Her MD - check B12 and folate Problem Code: R20.2; Problem Code Type: ICD-10; Not Available [facility] 3 05:53:48 Adult health examinat ion Active [address], [place], [address] , [facility] 4 20:33:34 Pre-surg ruben evaluati [...] Code Type: ICD-10; Not Available [facility] 3 05:53:48 Localize d edema 932407563 Completed 201501/29/2016 12/13/19 16 - Comments only - Ana Her MD - and some on left as well, will check BMP. 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 Nusrat esparza for removal. Problem Code: L72.3; Problem Code Type: ICD-10; Not Available [facility] 3 05:53:49 Chronic ulcer of foot 785158403 Completed 201601/16/2017 12/18/19 17 - Comments only - Ana Her MD - Due to injury. This does appear to have some granulat ion tissue and to be healing. She is given a prescrip tion for Keflex to take only if erythema seems to be extendin g. Problem Code: L97.509; Problem Code Type: ICD-10; Not Available [facility] 3 05:53:49 Diarrhea 47902191 Completed 201602/10/2017 02/05/20 17 - Comments only - Ana Her MD - Persiste nt over several months, we will collect stool for C. difficil e, Giardia, culture, and lactofer rin Problem Code: R19.7; Problem Code Type: ICD-10; MD [address], [place], [address] , [facility] 4 21:03:03 Polyp of cervix 81786493 Active 2016 EVIE shaw, [place] - [facility]. 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 6 mm PT1NO E2P2 poistive , HER2 negative MD [address], [place], [address] , [facility] 4 20:38:49 Pain in left lower limb 066935703 Active 2016 EVIE shaw, [facility]. 4 10:32:00 Pain in thoracic spine 461506825 Active 2016 EVIE shaw, [facility]. 4 10:32:06 [facility] 42925525 [facility] 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 4 14:36:02 Tachycar lea 8833958 Completed 201811/25/2018 Problem Code: R00.0; Problem Code Type: ICD-10; Not Available [facility] 3 05:53:51 Pre-surg rubne evaluati on Completed 201811/25/2018 Problem Code: Z01.818; Problem Code Type: ICD-10; Not Available [facility] 3 05:53:51 Iron deficien cy anemia 30341530 Active 2019 elevated MCV: normal B12 2021, normal folate 2018 IV iron 2023 EGD 01/2022 paraesop hageal hernia (since repaired ) colo 03/2017 normal ANA HER MD [address], [place], [address] , [facility] 4 11:44:45 Lumbago with sciatica 423704062 Completed 201903/16/2020 02/24/20 20 - Comments only - Vy Pinon [employer] INST[employer]ER - Likely aggravat ed by increase d [...] Code Type: ICD-10; Not Available [facility] 3 05:53:52 Right side sciatica 86994333973 9101 Active 2019 EVIE shaw, [facility] 4 10:33:09 Left side sciatica 93223120493 9104 Active [address], [place], [address] , [facility] 4 17:20:20 Diaphrag matic hernia 92332918 Completed 202108/11/2023 Removal Reason: s/p repair MD [address], [place], [address] , [facility] 4 20:50:39 History of SARS-CoV -2 16620242375 6368141 Completed 202104/04/2022 03/21/20 22 - Comments only - Ana Her MD - testing is negative today in the office. Still some fatigue but otherwis e recoveri ng. Did get MAB. Already had covid bivalent booster prior to illness Problem Code: Z86.16; Problem Code Type: ICD-10; Not Available [facility] 3 05:53:53 Diarrhea 92412609 Completed 202104/18/2022 Problem Code: R19.7; Problem Code Type: ICD-10; MD [address], [place] [address] , [facility] 4 21:03:02 Screenin g mammogra phy Completed 202208/11/[address], [place] [address] , [facility] 4 20:36:56 Carpal tunnel syndrome of left wrist 35813350975 9102 Completed 202201/23/2023 Problem Code: G56.02; Problem Code Type: ICD-10; Not Available [facility] 4 05:37:46 Diarrhea 17154254 Active 2022 started colestip ol 01/[address], [place] [address] , [facility] 4 21:03:02 Carpal tunnel syndrome of right wrist 96135874786 9108 Completed 201803/19/2020 Problem Code: G56.01; Problem Code Type: ICD-10; Not Available [facility] 3 05:53:55 Pain of left knee joint 54804435238 4107 Completed 202107/30/2022 Problem Code: M25.562; Problem Code Type: ICD-10; Not Available [facility] 3 05:53:55 Hypersom korina 84671219 Completed 201311/27/2014 Problem Code: 780.54; Problem Code Type: ICD-9; Not Available [facility] 3 05:53:56 Screenin g for disorder Completed 201909/11/2021 Problem Code: Z13.9; Problem Code Type: ICD-10; Not Available [facility] 3 05:53:56 Anemia 361308203 Completed 201903/19/2020 Problem Code: D64.9; Problem Code Type: ICD-10; Not Available [facility] 3 05:53:56 Long-ter m current use of anticoag ulant 123748508 Completed 201709/01/2018 Problem Code: Z79.01; Problem Code Type: ICD-10; Not Available [facility] 3 05:53:57 Chronic rhinitis 41491876 Completed 202108/12/2021 Problem Code: J31.0; Problem Code Type: ICD-10; Not Available [facility] 3 05:53:57 Impaired fasting glycemia 453393536 Completed 201401/28/2023 Not Available [facility] 3 05:53:57 Fatigue 06541034 Completed 201903/19/2020 Problem Code: R53.83; Problem Code Type: ICD-10; Not Available [facility] 3 05:53:58 Upper respirat ory tract infectio n caused by Influenz a A 34382449372 9104 Completed 201707/02/2017 Problem Code: J09.x2; Problem Code Type: ICD-10; Not Available [facility] 3 05:53:59 Diarrhea 50796459 Completed 201709/01/2018 ANA HER MD [address], [place], [address] , [facility]. 4 21:03:02 Acute upper respirat ory infectio n 56331400 Completed 202108/26/2021 Problem Code: J06.9; Problem Code Type: ICD-10; Not Available [facility] 3 05:53:59 Pain in right foot 76751741712 9107 Completed 202207/30/2022 Problem Code: M79.671; Problem Code Type: ICD-10; Not Available [facility] 3 05:54:00 Breast composit ion 314753964 Completed 201601/28/2023 Not Available [facility] 3 05:54:00 Changes in skin texture 305782623 Completed 202207/30/2022 Problem Code: R23.4; Problem Code Type: ICD-10; Not Available [facility] 3 05:54:01 Spasm 51862300 Completed 201603/23/2017 Problem Code: R25.2; Problem Code Type: ICD-10; EVIE RUFUS [facility], [facility] 4 10:33:28 Hyperten sive disorder 16876778 Completed 11/28/19 15 - Comments only - Ana Her MD - [facility] ed, no change in medicati ons Not Available [facility] 3 05:54:03 Arthralg ia of the ankle and/or foot 026421829 Completed 201501/30/2016 Problem Code: M25.571; Problem Code Type: ICD-10; Not Available [facility] 3 05:54:03 Dyspnea 211264617 Completed 201903/19/2020 Problem Code: R06.02; Problem Code Type: ICD-10; Danica Felix colin, [facility] 4 14:39:47 Trigger finger of right hand 51759931239 811571 Completed 201803/19/2020 Problem Code: M65.341; Problem Code Type: ICD-10; Not Available [facility] 3 05:54:06 Cough 90522982 Completed 202108/12/2021 Problem Code: R05.1; Problem Code Type: ICD-10; Not Available [facility] 3 05:54:06 At risk - finding 999227875 Completed 201811/11/2018 Problem Code: Z91.89; Problem Code Type: ICD-10; Not Available [facility] 3 05:54:06 Cough 49463157 Completed 201706/15/2017 Problem Code: R05; Problem Code Type: ICD-10; Not Available [facility] 3 05:54:07 Preopera tive cardiova scular examinat ion Completed 202112/18/2021 Problem Code: Z01.810; Problem Code Type: ICD-10; Not Available [facility] 3 05:54:08 Arterial bruit 02499536 Completed 202109/11/2021 Not Available [facility] 3 05:54:08 Gastroes ophageal reflux disease 013239034 Completed Not Available [facility] 3 05:54:09 Imaging of musculos keletal system abnormal 018820867 Completed 201603/23/2017 Problem Code: R93.7; Problem Code Type: ICD-10; Not Available [facility] 3 05:54:10 Blood glucose outside referenc e range 764131554 Completed 201503/20/2016 Problem Code: R73.09; Problem Code Type: ICD-10; Not Available [facility] 3 05:54:10 Abdomina l aortic aneurysm 454443037 Completed 195912/04/2014 Not Available [facility] 3 05:54:11 Lung field abnormal 770973877 Completed 202109/11/2021 Problem Code: R91.8; Problem Code Type: ICD-10; Not Available [facility] 3 05:54:11 Ingrowin g nail 544972126 Completed 201503/23/2017 Problem Code: L60.0; Problem Code Type: ICD-10; Not Available [facility] 3 05:54:11 Hypokale karyn 12778275 Completed 201504/17/2016 Problem Code: E87.6; Problem Code Type: ICD-10; Not Available [facility] 3 05:54:12 Spasm 02545711 Completed 202201/23/2023 Problem Code: M62.838; Problem Code Type: ICD-10; EVIE shaw [facility] 4 10:33:28 Aneurysm of ascendin g aorta 286845890 Active [address], [place] [address] , [facility] 4 19:24:51 Bicuspid aortic valve 58007178 Active 2023 severe by ECHO 07/[address], [place] [address] , [facility] 4 19:33:10 Osteopen ia 693283217 Active 2023 EVIE shaw, [facility] 4 10:28:13 Venous stasis 87683319 Active 2023 EVIE shaw, [facility] 4 10:29:14 Chronic kidney disease 537062721 Active 2017 Stage 3bA1v eGFR 42-[address], [place] [address] , [facility] 4 20:49:29 Dyspnea on exertion 41249209 Active 2018 Danica shaw, [facility] 4 14:39:44 Hiatal hernia 14459759 Completed 202108/11/2023 lap repair MD [address], [facility] [address] , [facility] 4 20:51:15 Edema of lower extremit y 366335846 Active [address], [facility] [address] , [facility] 4 20:55:49 Atrial fibrilla tion 30201125 Active 2016 s/p pulmonoa ry vein isolatio n 05/2018, chronic anticoag ulation with Xarelto MD [address], [address] [place] [address] 4 09:14:08 Obesity 294471230 Active [address], [address] 4 09:26:22 Cardiac pacemake r in situ 841566928 Active 2023 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 MD [address], [address] 4 09:13:49 Swelling of bilatera l lower limbs 836044159 Active [address], [address] 14:35:13 Problem Notes None recorded. Procedures Surgical History Date Name Laterality Status Provider Name and Address Organization Details Recorded Time 10/26/19 cardiac pacemaker procedure completed MD Young [address], [address] 03/16/2024 16:33:27 10/20/19 24 transcatheter aortic valve implantation completed MD Young [address], [address] 03/16/2024 16:32:53 Imaging Results None recorded. Procedure Notes None recorded. Medical Equipment None Reported. Allergies Allergen ID Allergen Name Allergen Category Reaction Reaction Severity Criticality Documentation Date Start Date Code Code System Note Provider Name and Address Organization Details Recorded Time 03297 amlodipin e medicatio n swelling severe high 11/18/2023 93802 RxNorm Shaneka Herrera MA null, [facility] 13:47:28 Medications Name Sig Start [...] tab by mouth daily 06/02 [facility] Not [facility] Not Available Not [...] needed for spasms 10/15 [address] [facility] [place] [place] Not Available Not Available Not Available Lamisil [...] 1 tab by mouth daily 2013 active [facility] Not Available Not Available Not Available gabapenti n 100 mg capsule Take 1 cap by mouth three times daily 2015 active Not Available Not Available Not Avai lable metoprolo l succinate ER 25 mg tablet,ex tended release 24 hr Take 1 tab by mouth daily 2017 active [facility] Not Available Not Available Not Available warfarin 1 mg tablet Take as directed 2017 active Not Available Not Available Not Avai lable ibuprofen 600 mg tablet Take 1 tab by mouth three times daily as needed for pain 06/02 completed [facility] [place] Not Available Not Available Not Available [...] Updated DateTime 4 164.34 cm 29.1 kg/m2 97274.4 8 g 97.7 [degF] 96 % 96 % 104 /min 18 /min 120 mm[Hg] 74 mm[Hg] KRYSTAL SKELTON LPN [facility] 14:18:40 Social History Question Answer Notes LastModified by Organizat ion Details LastModified Time Tobacco Smoking Status Never Smoker KRYSTAL SKELTON LPN [facility] 08/12/2023 07:44:55 Date Of Most [...] And Wanted Help? (For Example, If You [place] Very Nervous, Lonely, Or Blue; Got Sick [...] 04:00:48 Mother Family history of heart failure Not available 2022 04:00:48 Notes:*Problem: Mother: Dece [...] Details Recorded Time Pneumococcal conjugate PCV20, polysaccharide SNB485 conjugate, adjuvant, PF 4 completed MD [address], [address] 08/12/2023 11:52:18 COVID-19, mRNA, LNP-S, PF, vanda-sucrose, 30 mcg/0.3 mL 4 completed MD [address], [address] 08/12/2023 11:52:18 COVID-19, mRNA, LNP-S, PF, vanda-sucrose, 30 mcg/0.3 mL 4 completed MD [address], [address] 03/04/2024 15:04:49 Tdap 1 completed Not Available [facility] 03/13/2023 06:18:37 Tdap 1 completed Not Available [facility] 03/13/2023 06:18:37 zoster live 5 completed Not Available [facility] 03/13/2023 06:18:37 Influenza, high-dose, trivalent, PF 8 completed Not Available [facility] 03/13/2023 06:18:38 Influenza, split virus, trivalent, preservative 6 completed Not Available [facility] 03/13/2023 06:18:38 Pneumococcal Conjugate, unspecified formulation 5 completed Not Available [facility] 03/13/2023 06:18:38 Influenza, split virus, quadrivalent, preservative 7 completed Not Available [facility] 03/13/2023 06:18:38 Influenza, high-dose, quadrivalent, PF 2 completed Not Available [facility] 03/13/2023 06:18:38 Influenza, high-dose, quadrivalent, PF 1 completed Not Available [facility] 03/13/2023 06:18:38 Influenza, high-dose, quadrivalent, PF 0 completed Not Available [facility] 03/13/2023 06:18:38 COVID-19, mRNA, LNP-S, PF, 100 mcg/0.5mL dose or 50 mcg/0.25mL dose 1 completed Not Available [facility] 03/13/2023 06:18:38 COVID-19, mRNA, LNP-S, PF, 100 mcg/0.5mL dose or 50 mcg/0.25mL dose 1 completed Not Available [facility] 03/13/2023 06:18:39 COVID-19, mRNA, LNP-S, PF, 100 mcg/0.5mL dose or 50 mcg/0.25mL dose 1 completed Not Available [facility] 03/13/2023 06:18:39 COVID-19, mRNA, LNP-S, bivalent, PF, 30 mcg/0.3 mL dose 2 completed Not Available [facility] 03/13/2023 06:18:39 pneumococcal polysaccharide PPV23 1 completed Not Available [facility] 03/13/2023 06:18:39 influenza, unspecified formulation 6 completed Not Available [facility] 03/13/2023 06:18:39 influenza, unspecified formulation 4 completed Not Available [facility] 03/13/2023 06:18:39 Influenza, high-dose, quadrivalent, PF 3 completed Not Available [facility] 05/15/2023 05:33:16 Past Encounters Encounter ID Performer Location Encounter Start Date Encounter Closed Date Diagnosis/Indication Diagnosis SNOMED-CT Code Diagnosis ICD10 Code Diagnosis Note [id number] ANA HER MD [place] [address] [place] [address] 03/04/2024 14:02:04 03/04/2024 15:12:46 Active or passive immunization 466033477 Z23 Hypothyroidism 51520485 E03.9 dose lowered during hospital or rehab stay, will repeat TSH in few months. Osteoporotic fracture 46 324120 M80.00XD received first dose of zoledronic acid [...] to next visit. Iron defic iency anemia 53449163 D50.9 Did receive some IV iron, unclear [...] for blood loss. Chronic ki dney disease 318177502 N18.9 Prediabetes 916840461 R7 3.03 Health Concerns Section Related Observation LastModified by Organization Detai ls LastModified Time None Recorded Concern Status LastModified by Organization Details LastModified Time None Recorded Payers Encounter Date Sequence Insurance Name Policy Number Policy Palacio Covered Member ID Palacio Member ID Guarantor Name 03/04/2024 1 [place] [employer] Digna Olson [id number] Digna Christiansensocorro 03/04/2024 2 [place] [facility] [id number] Digna Christiansensocorro [id number] Digna Lemus Whitney Notes Date Note Type Note Provider Name and Address Organization Details Recorded Time 03/04/2024 text/html Pt was admitted to [facility] 12/10-12/16 with fall and humeral fracture. [...] TAVR. ANA HER MD [address], [place], [address], [facility]. 03/04/2024 17:49:41 OBGyn Episode No OBEpisode recorded.
--- OUTSIDE RECORDS SUMMARY | 2024-05-20 10:28 | XMS_ITS | Encounter Summary ---
[place] [address] Care Team Providers Care Environmental Compliance Manager Name Role Phone Ana Her MD Primary Care Provider [phone] Encounter Details Date Type Department Care Team (Late st Contact Info) Description 02/03/2023 Telephone Hematology [place] [phone] Maryam Barrett Social History Tobacco Use Types [...] filedocumented in this encounter Care Teams Environmental Compliance Manager Relationship Specialty Start Date End Date Ana Her MD [address] [place] [address] PCP - General 07/29/13 documented as of this encounter
--- OUTSIDE RECORDS SUMMARY | 2024-05-20 10:28 | XMS_ITS | Encounter Summary ---
[place] [address] Care Team Providers Care Sharepoint Analyst Name Role Phone Ana Her MD Primary Care Provider [phone] Encounter Details Date Type Department Care Team (Late st Contact Info) Description 02/26/2022 Orders Only [place] [address] Alicia Manning RN Social History Tobacco Use [...] filedocumented in this encounter Care Teams Sharepoint Analyst Relationship Specialty Start Date End Date Ana Her MD [address] [place] [address] PCP - General 07/29/13 documented as of this encounter
--- OUTSIDE RECORDS SUMMARY | 2024-05-20 10:28 | XMS_ITS | Encounter Summary ---
Author Organization [facility] [place] [address] Care Team Providers Care Decorating Machine Tender Name Role Phone Ana Her MD Primary Care Provider [phone] Encounter Details Date Type Department Care Team (Late st Contact Info) Description 03/10/2022 1:35 AM EST Ancillary Procedure Radiology Library at [facility] [place] [address] Ana Her MD [address] [place] [address] [facility] [address] [place], [place] [id number] Social History Tobacco Use Types Packs/Day Years [...] CT Chest (03/10/2022 1:31 AM EST) Narrative [facility] - 03/10/2022 1:31 AM EST This exam is auto-finalizing. It's purpose is for storage only. Ana Her MD IM FILM LIBRARY ORD ERABLES [place], [place] documented in this encounter Visit Diagnoses Not on filedocumented in this encounter Care Teams Decorating Machine Tender Relationship Specialty Start Date End Date Ana Her MD [facility] [address] [facility] [address] [place] [address] PCP - General 07/29/13 documented as of this encounter
--- OUTSIDE RECORDS SUMMARY | 2024-05-20 10:28 | XMS_ITS | Encounter Summary ---
[place] [address] Care Team Providers Care Stonemason Apprentice Name Role Phone Ana Her MD Primary Care Provider [phone] Reason for Visit * Auth/Cert Specialty Diagnoses / Procedures Referred By Christiano hackett Referred To Contact Diagnoses S/P repair of paraesophageal hernia Post-Op monitoring Procedures PRO LAPARSCOPY REPAIR PARAESOPHAGEAL HERNIA INCL FUNDOPLASTY W/O MESH LAPAROSCOPIC PARAESOPHAGEAL HERNIA REPAIR W/FUNDOPLASTY, W/O MESH (WRVU 26.6) MODIFIER TOUPET FUNDOPLASTY Shania Will MD [facility] [place] [address] [facility] Referral ID Status Reason Start Date Expiration Date Visits Re quested Visits Authorized [id number] 1 1 Encounter Details Date Type Department Care Team (Late st Contact Info) Description 03/05/2022 12:54 PM EDT - 03/05/2022 4:55 PM EDT Surgery [place] [id number] Shania Will MD [facility] [place] [address] LAPAROSCOPIC PARAESOPHAGEAL HERNIA REPAIR W/FUNDOPLASTY, W/O MESH [...] of left breast of female, estrogen receptor twqeymaeU16.512, Z17.0 ??? Anemia D64.9 ??? Aortic valve [...] Per chart review, her creatinine levels in 3570-8142 ranged from 0.87-1.50 indicative of possible undiagnosed [...] PM Shania Will MD General Surgery at [facility] Arrive at: Phonograph Needle Tip Maker Area [phone] Instructions Given to Patient at Discharge: Patient [...] hours please call the Surgery Clinic at [phone] before 5 PM on weekdays. For questions after hours and on weekends please call the hospital black top spreader machine operator at [phone] and ask for the General Surgery resident exploration manager. They may not be familiar with your [...] post Sly diet, as instructed by the security orderly in the hospital for a period of [...] renal function. Please call the clinic at [phone] to confirm or reschedule. Future Appointments Date Time Provider Department Center 04/03/2022 12:00 PM Shania Will MD [facility] SURG [facility] General Instructions None Future Appointments and Orders Future Appointments and Orders Future Appointments Provider Department Dept Phone 04/03/2022 12:00 PM Shania Will MD General Surgery at [facility] Arrive at: Phonograph Needle Tip Maker Area 4L [phone] Signed: Shena Harden MD 03/07/22 7:18 AM [phone] Primary Saima Physician: MD Geovany David DR [facility] [id number] documented in this encounter Discharge Instructions * [...] hours please call the Surgery Clinic at [phone] before 5 PM on weekdays. For questions after hours and on weekends please call the hospital black top spreader machine operator at [phone] and ask for the General Surgery resident exploration manager. They may not be familiar with your [...] post Sly diet, as instructed by the security orderly in the hospital for a period of [...] renal function. Please call the clinic at [phone] to confirm or reschedule. Future Appointments Date Time Provider Department Center 04/03/2022 12:00 PM Shania Will MD [facility] SURG [facility] documented in this [...] Ocampo RN - 03/07/2022 10:25 AM EDT [facility] Short Stay Unit Discharge Note All [...] Diet Education to pt Digna Olson. Sales Marketing Manager metwith pt at bedside to deliver [...] is noticing some overall improvement post op.Sales Marketing Manager took note of this and encouraged [...] Department contact information provided. Pt appreciate of story writer's time. Nutrition to follow as needed. [...] Perez MD 03/05/2022 Minimally Invasive Surgery Pager #[phone] * Lorrie Slater RN - 03/05/2022 6:46 [...] ?? She is followed by cardiology at [facility], and is on xarelto. ?? Impression: ??Symptomatic [...] of left breast of female, estrogen receptor [id number], Z17.0 ??? Anemia D64.9 ??? 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 A Elty which was placed around the esophagus was [...] Repair Paraesophageal Hernia Incl Fundoplasty W/O Mesh (32939) 03/05/2022 1:58 PM EDT Paraesophageal Hernia POCT GLUCOSE Routine 03/05/2022 12:18 PM EDT LAPAROSCOPIC PARAESOPHAGEAL HERNIA REPAIR W FUNDOPLASTY, W/O MESH Routine 03/05/2022 12:02 PM EDT documented in this encounter Results * (ABNORMAL) Differential, Automated (03/07/2022 5:08 AM EDT) Neutrophil % 80.0 % [facility] Neutrophil Absolute 5.30 1.70 - 6.10 x10(3)/mc L [facility] Lymph % 12.1 % [facility] Lymphocytes Abs 0.8(L) 0.9 - 3.2 x10(3)/mc L [facility] Monocyte % 7.6 % [facility] Monocyte Abs 0.5 0.3 - 0.9 x10(3)/mc L [facility] Eos % 0.0 % [facility] Eosinophils Abs 0.0 0.0 - 0.4 x10(3)/[facility] Basophil % 0.0 % [facility] Baso Absolute 0.0 0.0 - 0.1 x10(3)/[facility] Immature Gran % 0.30 % [facility] Comment: Immature granulocytes(IG's)percentage and absolute count will include metamyelocytes, myelocytes, and promyelocytes. Blood smears from CBCs yielding IG's will be scanned manually for concordance. If this scan disagrees with the automated IG or if promyelocytes are noted, a manual differential will be performed. Immature Gran Absolute 0.02 0.00 - 0.04 x10(3)/[facility] Blood 03/07/2022 5:08 AM EDT 03/07/2022 5:19 AM EDT Narrative Resulting Agency Comment Spec In Lab Nino Levy MD HEMATOLOGY ORDERABLE S [facility] [place] [address] * (ABNORMAL) Hemogram (03/07/2022 5:08 AM EDT) White Blood Cell 6.6 4.0 - 9.5 x10(3)/[facility] Red Blood Cell 3.16(L) 4.00 - 5.21 x10(6)/[facility] Hemoglobin 10.7(L) 11.7 - [...] [facility] NRBC% auto 0.0 % [facility] NRBC Absolute 0.000 0.000 - 0.000 x10(3)/mc L [facility] Blood 03/07/2022 5:08 AM EDT 03/07/2022 5:19 AM EDT Narrative Resulting Agency Comment Spec In Lab Nino Levy MD HEMATOLOGY ORDERABLE S Performing Organization Address City/[facility]/[place] [address] * Phosphorus (03/07/2022 5:08 AM EDT) Phosphorus 2.7 2.5 - 4.5 mg/dL [facility] Blood 03/07/2022 5:08 AM EDT 03/07/2022 5:19 AM EDT Narrative Resulting Agency Comment Spec In Lab Shania Will MD CHEMISTRY ORDERABLE S Performing Organization Address City/[facility]/ZIP Co de Phone Number [facility] [place] [address] * Magnesium (03/07/2022 5:08 AM EDT) Magnesium 0.89 0.69 - 1.07 mmol/L [facility] Blood 03/07/2022 5:08 AM EDT 03/07/2022 5:19 AM EDT Narrative Resulting Agency Comment Spec In Lab Shania Will MD CHEMISTRY ORDERABLE S [facility] [place] [address] * (ABNORMAL) Basic Metabolic Panel (non-fasting) (03/07/2022 [...] MD CHEMISTRY ORDERABLE S Performing Organization Address City/[facility]/ZIP Co de Phone Number [facility] [place] [address] * (ABNORMAL) Differential, Automated (03/06/2022 10:15 AM EDT) Neutrophil % 90.7 % [facility] Neutrophil Absolute 5.79 1.70 - 6.10 x10(3)/mc L [facility] Lymph % 5.0 % [facility] Lymphocytes Abs 0.3(L) 0.9 - 3.2 x10(3)/mc L [facility] Monocyte % 3.8 % [facility] Monocyte Abs 0.2(L) 0.3 - 0.9 x10(3)/mc L [facility] Eos % 0.0 % [facility] Eosinophils Abs 0.0 0.0 - 0.4 x10(3)/[facility] Basophil % 0.0 % [facility] Baso Absolute 0.0 0.0 - [...] MUELLER HEMATOLOGY ORDERABL ES Performing Organization Address City/[facility]/ZIP Co de Phone Number [facility] [place] [address] * (ABNORMAL) Hemogram (03/06/2022 10:15 AM EDT) [...] HOSPITAL LABORATORY Platelet 111(L) 145 - 357 x10(3)/[facility] RDW Standard Deviation 47.2(H) 37.0 - 46.0 [facility] RDW coefficient of variation 12.9 11.5 - 14.1 % [facility] Mean Platelet Volume 11.5 7.6 - 12.9 [facility] NRBC% auto 0.0 % [facility] NRBC Absolute 0.000 0.000 - 0.000 x10(3)/ L [facility] Blood 03/06/2022 10:1 5 AM EDT 03/06/2022 10:21 AM EDT Narrative Resulting Agency Comment Spec In Lab Maryam MUELLER HEMATOLOGY ORDERABL ES [facility] [place] [address] * Phosphorus (03/06/2022 10:15 AM EDT) Phosphorus 3.3 2.5 - 4.5 mg/dL [facility] Blood 03/06/2022 10:1 5 AM EDT 03/06/2022 10:21 AM EDT Narrative Resulting Agency Comment Spec In Lab Shania Will MD CHEMISTRY ORDERABLE S [facility] [place] [address] * Magnesium (03/06/2022 10:15 AM EDT) Magnesium 0.69 0.69 - 1.07 mmol/L [facility] Blood 03/06/2022 10:1 5 AM EDT 03/06/2022 10:21 AM EDT Narrative Resulting Agency Comment Spec In Lab Shania Will MD CHEMISTRY ORDERABLE S Performing Organization Address City/[facility]/ZIP Co de Phone Number [facility] [place] [address] * (ABNORMAL) Basic Metabolic Panel (non-fasting) (03/06/2022 [...] MD CHEMISTRY ORDERABLE S Performing Organization Address City/State/[facility] Co de Phone Number [facility] [place] [address] * (ABNORMAL) Differential, Automated (03/06/2022 4:29 AM EDT) Neutrophil % 90.5 % [facility] Neutrophil Absolute 4.47 1.70 - 6.10 x10(3)/mc L [facility] Lymph % 6.9 % [facility] Lymphocytes Abs 0.3(L) 0.9 - 3.2 x10(3)/mc L [facility] Monocyte % 2.2 % [facility] Monocyte Abs 0.1(L) 0.3 - 0.9 x10(3)/mc L [facility] Eos % 0.0 % [facility] Eosinophils Abs 0.0 0.0 - 0.4 x10(3)/mc L [facility] Basophil % 0.2 % [facility] Baso Absolute 0.0 0.0 - [...] Immature Gran Absolute 0.01 0.00 - 0.04 x10(3)/[facility] Blood 03/06/2022 4:29 AM EDT 03/06/2022 4:49 AM EDT Narrative Resulting Agency Comment Spec In Lab Prakash Mendez MD HEMATOLOGY ORDERABLE S [facility] [place] [address] * (ABNORMAL) Hemogram (03/06/2022 4:29 AM EDT) White Blood Cell 4.9 4.0 - 9.5 x10(3)/[facility] Red Blood Cell 3.08(L) 4.00 - 5.21 x10(6)/[facility] Hemoglobin 10.5(L) 11.7 - [...] HOSPITAL LABORATORY Platelet 104(L) 145 - 357 x10(3)/[facility] RDW Standard Deviation 47.5(H) 37.0 - 46.0 fL [facility] RDW coefficient of variation 12.9 11.5 - 14.1 % [facility] Mean Platelet Volume 11.8 7.6 - 12.9 fL [facility] NRBC% auto 0.0 % [facility] NRBC Absolute 0.000 0.000 - 0.000 x10(3)/mc L [facility] Blood 03/06/2022 4:29 AM EDT 03/06/2022 4:49 AM EDT Narrative Resulting Agency Comment Spec In Lab Prakash Mendez MD HEMATOLOGY ORDERABLE S [facility] [place] [address] * (ABNORMAL) Basic Metabolic Panel (non-fasting) (03/06/2022 [...] MD CHEMISTRY ORDERABLE S Performing Organization Address City/[facility]/ZIP Co de Phone Number [facility] [place] [address] * POCT Glucose (03/05/2022 12:18 PM EDT) Glucose, POC 94 65 - 199 mg/dL [facility] Comment: Supplemental ranges: <140 mg/dL before meals <180 mg/dL all other times of the day Blood 03/05/2022 12:1 8 PM EDT 03/05/2022 12:18 PM EDT Shania Will MD POINT OF CARE TEST ORDERABLES Performing Organization Address City/[facility]/ZIP Co de Phone Number [facility] [place] [address] documented in this encounter Visit Diagnoses Not [...] TIMES DAILY WITH MEALS, First dose on Radah 03/06/22 at 0800, Until Discontinued, Hold for [...] Unit) documented in this encounter Care Teams Stonemason Apprentice Relationship Specialty Start Date End Date Ana Her MD [address] [facility] [address] [place] [address] PCP - General 07/29/13 documented as of this encounter
--- OUTSIDE RECORDS SUMMARY | 2024-05-20 10:28 | XMS_ITS | Continuity of Care Document ---
Author Organization [place] [facility] Address [place] [address] Care Team Providers Care Fabrication Lead Name Role Phone GABINODC Glass Checker [facility] Orthopedic Surgeon [phone] [facility] Sleep Medicine [facility] Pressed Or Blown Glass Worker Assessment No assessment recorded. Plan of Treatment Reminders Order Date Submit Date Provider Last Modified By Organization Details Last Modified Time Details Appointments Follow Up 20 2024 01:20P M Ana Wade Not available Not available Not available Lab BMP, serum or plasma 2023 024 [facility] (Registration ), [address] [place] [address] [place], [address], 04/19/2024 11:42:49 vitamin D, 25-hydrox y, total, serum 2023 024 [facility] (Registration ), [address] [place] [address] [place], [address], 04/18/2024 16:09:19 HbA1c (hemoglob in A1c), blood 2023 024 [facility] (Registration ), [address] [place] [address] [place], [address], 04/19/2024 11:39:49 TSH, serum, reflex free T4 2023 024 [facility] (Registration ), [address] [place] [address] Dr [facility] [place], [address], 04/19/2024 11:40:25 CBC 2023 024 [facility] (Registration ), [address] [place] [address] [place], [address], 04/18/2024 15:08:25 ferritin, serum or plasma 2023 024 [facility] (Registration ), [address] [place] [address] [place], [address], 04/19/2024 11:41:22 iron + total iron-bind ing capacity (TIBC), serum 2023 024 [facility] (Registration ), [address] [place] [address] [place], [address], 04/19/2024 11:43:17 Referral None recorded. Procedures None [...] humeral fracture 2023- MD [address], [place], [address] , [facility] 4 17:34:10 Hypothyr oidism 90730159 Active 1959 EVIE shaw [facility] 4 10:29:59 Ess[facility]ia l hyperten jason 92547565 Active 1959 EVIE shaw [facility] 4 10:29:36 Hyperlip idemia 39367461 Active 1959 on statin MD [address], [place], [address] , [facility] 4 20:35:18 Spinal stenosis of lumbar region 70819295 Active 2012 s/p lumbar foramino parish L4 MD [address], [place], [address] , [facility] 4 20:36:41 Sleep apnea 53989821 Active 2012 on CPAP MD [address], [facility] [address] , [facility] 4 20:39:31 Gastroes ophageal reflux disease without esophagi tis 546602554 Completed 195908/12/2023 Removal Reason: resolved with surgical repair of HH MD [address], [place], [address] , [facility] 4 10:41:24 Family history of malignan t neoplasm of digestiv e organ 566195317 Active [address], [place], [address] , [facility] 4 20:37:03 Paresthe samir 48172919 Completed 201412/01/2014 11/28/19 15 - Comments only - Ana Wade MD - check B12 and folate Problem Code: R20.2; Problem Code Type: ICD-10; Not Available [facility] 3 05:53:48 Adult health examinat ion Active [address], [place], [address] , [facility] 4 20:33:34 Pre-surg rbuen evaluati on Completed 201510/03/2015 09/03/19 16 - [...] Problem Code Type: ICD-10; Not Available [facility] 3 05:53:48 Localize d edema 271965198 Completed 201501/29/2016 12/13/19 16 - Comments only - Ana Wade MD - and some on left as well, will check BMP. Problem Code: R60.0; Problem Code Type: ICD-10; ANA WADE MD [facility] [address], [place], [address] , [facility] 4 20:54:49 Prediabe jasson 027847871 Active 2015 EVIE shaw 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 4 10:32:59 Pain in left lower limb 493662249 Completed 201607/27/2016 06/27/19 17 - Comments only [...] M79.605; Problem Code Type: ICD-10; EVIE shaw, [facility] 4 10:32:00 Epidermo id cyst of skin 658189517 Completed 201611/14/2016 10/17/19 17 - Comments only - Ana Wade MD - Inflamed , I suggeste d hot packing, if not resolvin g we can refer to Dr. Nusrat esparza for removal. Problem Code: L72.3; Problem Code Type: ICD-10; Not Available [facility] 3 05:53:49 Chronic ulcer of foot 492534216 Completed 201601/16/2017 12/18/19 17 - Comments only - Ana Wade MD - Due to injury. This does appear to have some granulat ion tissue and to be healing. She is given a prescrip tion for Keflex to take only if erythema seems to be extendin g. Problem Code: L97.509; Problem Code Type: ICD-10; Not Available [facility] 3 05:53:49 Diarrhea 31449440 Completed 201602/10/2017 02/05/20 17 - Comments only - Ana Wade MD - Persiste nt over several months, we will collect stool for C. difficil e, Giardia, culture, and lactofer rin Problem Code: R19.7; Problem Code Type: ICD-10; ANA WADE MD [address], [place], [address] , [facility] 4 21:03:03 Polyp of cervix 83997977 Active 2016 EVIE shaw, 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 6 mm PT1NO E2P2 poistive , HER2 negative MD [address], [place], [address] , [facility] 4 20:38:49 Pain in left lower limb 216475627 Active 2016 EVIE shaw, [facility]. 4 10:32:00 Pain in thoracic spine 688603396 Active 2016 EVIE shaw [facility], [facility]. 4 10:32:06 Spasm 01781387 Active 2017 EVIE shaw [facility]. 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 4 14:36:02 Tachycar lea 7127018 Completed 201811/25/2018 Problem Code: R00.0; Problem Code Type: ICD-10; Not Available [facility] 3 05:53:51 Pre-surg ruben evaluati on Completed 201811/25/2018 Problem Code: Z01.818; Problem Code Type: ICD-10; Not Available [facility] 3 05:53:51 Iron deficien cy anemia 09736430 Active 2019 elevated MCV: normal B12 2021, normal folate 2018 IV iron 2023 EGD 01/2022 paraesop hageal hernia (since repaired ) colo 03/2017 normal ANA WADE MD [facility] [address], [place], [address] , [facility] 4 11:44:45 Lumbago with sciatica 623066103 Completed 201903/16/2020 02/24/20 20 - Comments only - Vy Pinon 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 4 10:33:09 Left side sciatica 38767452837 9104 Active [address], [facility] [address] , [facility] 4 17:20:20 Diaphrag matic hernia 23253586 Completed 202108/11/2023 Removal Reason: s/p repair MD [address], [facility] [address] , [facility] 4 20:50:39 History of SARS-CoV -2 86220817214 9347655 Completed 202104/04/2022 03/21/20 22 - Comments only - Ana Wade MD - testing is negative today in the office. Still some fatigue but otherwis e recoveri ng. Did get MAB. Already had covid bivalent booster prior to illness Problem Code: Z86.16; Problem Code Type: ICD-10; Not Available [facility] 3 05:53:53 Diarrhea 98459441 Completed 202104/18/2022 Problem Code: R19.7; Problem Code Type: ICD-10; MD [address], [facility] [address] , [facility] 4 21:03:02 Radhain myla mammogra phy Completed 202208/11/[address], [facility] [address] , [facility] 4 20:36:56 Carpal tunnel syndrome of left wrist 70920436374 9102 Completed 202201/23/2023 Problem Code: G56.02; Problem Code Type: ICD-10; Not Available [facility] 4 05:37:46 Diarrhea 05692152 Active 2022 started colestip ol 01/2023 ANA WADE MD [address], [place], [address] , [facility] 4 21:03:02 Carpal tunnel syndrome of right wrist 69985809122 9108 Completed 201803/19/2020 Problem Code: G56.01; Problem Code Type: ICD-10; Not Available [facility] 3 05:53:55 Pain of left knee joint 25506596428 4107 Completed 202107/30/2022 Problem Code: M25.562; Problem Code Type: ICD-10; Not Available [facility] 3 05:53:55 Hypersom korina 80745794 Completed 201311/27/2014 Problem Code: 780.54; Problem Code Type: ICD-9; Not Available [facility] 3 05:53:56 Screenin g for disorder Completed 201909/11/2021 Problem Code: Z13.9; Problem Code Type: ICD-10; Not Available [facility] 3 05:53:56 Anemia 756244145 Completed 201903/19/2020 Problem Code: D64.9; Problem Code Type: ICD-10; Not Available [facility] 3 05:53:56 Long-ter m current use of anticoag ulant 237856555 Completed 201709/01/2018 Problem Code: Z79.01; Problem Code Type: ICD-10; Not Available [facility] 3 05:53:57 Chronic rhinitis 39603453 Completed 202108/12/2021 Problem Code: J31.0; Problem Code Type: ICD-10; Not Available [facility] 3 05:53:57 Impaired fasting glycemia 650034009 Completed 201401/28/2023 Not Available [facility] 3 05:53:57 Fatigue 08993018 Completed 201903/19/2020 Problem Code: R53.83; Problem Code Type: ICD-10; Not Available [facility] 3 05:53:58 Upper respirat ory tract infectio n caused by Influenz a A 06265635748 9104 Completed 201707/02/2017 Problem Code: J09.x2; Problem Code Type: ICD-10; Not Available [facility] 3 05:53:59 Diarrhea 98000322 Completed 201709/01/2018 ANA WADE MD [facility] [address], [place], [address] [facility] 4 21:03:02 Acute upper respirat ory infectio n 71549761 Completed 202108/26/2021 Problem Code: J06.9; Problem Code Type: ICD-10; Not Available [facility] 3 05:53:59 Pain in right foot 36584167260 9107 Completed 202207/30/2022 Problem Code: M79.671; Problem Code Type: ICD-10; Not Available [facility] 3 05:54:00 Breast composit ion 712624496 Completed 201601/28/2023 Not Available [facility] 3 05:54:00 Changes in skin texture 203406703 Completed 202207/30/2022 Problem Code: R23.4; Problem Code Type: ICD-10; Not Available [facility] 3 05:54:01 Spasm 84486339 Completed 201603/23/2017 Problem Code: R25.2; Problem Code Type: ICD-10; EVIE shaw [facility] 4 10:33:28 Hyperten sive disorder 46450367 Completed 11/28/19 15 - Comments only - Ana Wade MD - [facility] ed, no change in medicati ons Not Available [facility] 3 05:54:03 Arthralg ia of the ankle and/or foot 193389246 Completed 201501/30/2016 Problem Code: M25.571; Problem Code Type: ICD-10; Not Available [facility] 3 05:54:03 Dyspnea 032453097 Completed 201903/19/2020 Problem Code: R06.02; Problem Code Type: ICD-10; Danica Felix [facility] 4 14:39:47 Trigger finger of right hand 32095367313 804365 Completed 201803/19/2020 Problem Code: M65.341; Problem Code Type: ICD-10; Not Available [facility] 3 05:54:06 Cough 50926397 Completed 202108/12/2021 Problem Code: R05.1; Problem Code Type: ICD-10; Not Available [facility] 3 05:54:06 At risk - finding 759962245 Completed 201811/11/2018 Problem Code: Z91.89; Problem Code Type: ICD-10; Not Available [facility] 3 05:54:06 Cough 88835700 Completed 201706/15/2017 Problem Code: R05; Problem Code Type: ICD-10; Not Available [facility] 3 05:54:07 Preopera tive cardiova scular examinat ion Completed 202112/18/2021 Problem Code: Z01.810; Problem Code Type: ICD-10; Not Available [facility] 3 05:54:08 Arterial bruit 67511550 Completed 202109/11/2021 Not Available [facility] 3 05:54:08 Gastroes ophageal reflux disease 469738040 Completed Not Available [facility] 3 05:54:09 Imaging of musculos keletal system abnormal 486315470 Completed 201603/23/2017 Problem Code: R93.7; Problem Code Type: ICD-10; Not Available [facility] 3 05:54:10 Blood glucose outside referenc e range 655110767 Completed 201503/20/2016 Problem Code: R73.09; Problem Code Type: ICD-10; Not Available [facility] 3 05:54:10 Abdomina l aortic aneurysm 871392832 Completed 195912/04/2014 Not Available [facility] 3 05:54:11 Lung field abnormal 204685933 Completed 202109/11/2021 Problem Code: R91.8; Problem Code Type: ICD-10; Not Available [facility] 3 05:54:11 Ingrowin g nail 304020787 Completed 201503/23/2017 Problem Code: L60.0; Problem Code Type: ICD-10; Not Available [facility] 3 05:54:11 Hypokale karyn 20700458 Completed 201504/17/2016 Problem Code: E87.6; Problem Code Type: ICD-10; Not Available [facility] 3 05:54:12 Spasm 03838886 Completed 202201/23/2023 Problem Code: M62.838; Problem Code Type: ICD-10; EVIE shaw, [facility]. 4 10:33:28 Aneurysm of ascendin g aorta 626913744 Active 2023 ANA WADE MD [address], [place], [address] , [facility]. 4 19:24:51 Bicuspid aortic valve 67823363 Active 2023 severe by ECHO 07/2023 ANA WADE MD [address], [place], [address] , [facility]. 4 19:33:10 Osteopen ia 734564385 Active 2023 EVIE shaw, [facility]. 4 10:28:13 Venous stasis 63523466 Active 2023 EVIE shaw [facility]. 4 10:29:14 Chronic kidney disease 168556769 Active 2017 Stage 3bA1v eGFR 42-[address], [place] [address] , [facility] 4 20:49:29 Dyspnea on exertion 44263760 Active 2018 Danica shaw, [facility] 4 14:39:44 Hiatal hernia 62599431 Completed 202108/11/2023 lap repair MD [address], [place] [address] , [facility] 4 20:51:15 Edema of lower extremit y 336178056 Active [address], [place] [address] , [facility] 4 20:55:49 Atrial fibrilla tion 92514811 Active 2016 s/p pulmonoa ry vein isolatio n 05/2018, chronic anticoag ulation with Xarelto MD [address], [place] [address] , [facility] 4 09:14:08 Obesity 874006437 Active [address], [place] [address] , [facility] 4 09:26:22 Cardiac pacemake r in situ 311109072 Active 2023 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 MD [address], [place] [address] , [facility] 4 09:13:49 Swelling of bilatera l lower limbs 598410328 Active [address], [place], [address] , [facility] 14:35:13 Problem Notes None recorded. Procedures Surgical History Date Name Laterality Status Provider Name and Address Organization Details Recorded Time 10/26/19 cardiac pacemaker procedure completed MD [address], [place], [address], [facility] 03/16/2024 16:33:27 10/20/19 transcatheter aortic valve implantation completed MD [address], [facility] [address], [facility] 03/16/2024 16:32:53 Imaging Results None recorded. Procedure Notes None recorded. Medical Equipment None Reported. Allergies Allergen ID Allergen Name Allergen Category Reaction Reaction Severity Criticality Documentation Date Start Date Code Code System Note Provider Name and Address Organization Details Recorded Time 64837 amlodipin e medicatio n swelling severe high 11/18/2023 49130 RxNorm Shaneka Herrera MA [facility], [facility] 13:47:28 Medications Name Sig Start [...] 1 tab by mouth daily 06/02 [facility] Not [facility] Not Available Not [...] Status Never Smoker KRYSTAL SKELTON LPN null, [place] - [facility]. 08/12/2023 07:44:55 Date Of Most Recent [...] And Wanted Help? (For Example, If You [place] Very Nervous, Lonely, Or Blue; Got Sick [...] Details Recorded Time Pneumococcal conjugate PCV20, polysaccharide RLD750 conjugate, adjuvant, PF 4 completed MD [address], [address] 08/12/2023 11:52:18 COVID-19, mRNA, LNP-S, PF, vanda-sucrose, 30 mcg/0.3 mL 4 completed MD [address], [address] 08/12/2023 11:52:18 COVID-19, mRNA, LNP-S, PF, vanda-sucrose, 30 mcg/0.3 mL 4 completed MD [address], [address] 03/04/2024 15:04:49 Tdap 1 completed Not Available [facility] 03/13/2023 06:18:37 Tdap 1 completed Not Available [facility] 03/13/2023 06:18:37 zoster live 5 completed Not Available [facility] 03/13/2023 06:18:37 Influenza, high-dose, trivalent, PF 8 completed Not Available [facility] 03/13/2023 06:18:38 Influenza, split virus, trivalent, preservative 6 completed Not Available [facility] 03/13/2023 06:18:38 Pneumococcal Conjugate, unspecified formulation 5 completed Not Available [facility] 03/13/2023 06:18:38 Influenza, split virus, quadrivalent, preservative 7 completed Not Available [facility] 03/13/2023 06:18:38 Influenza, high-dose, quadrivalent, PF 2 completed Not Available [facility] 03/13/2023 06:18:38 Influenza, high-dose, quadrivalent, PF 1 completed Not Available [facility] 03/13/2023 06:18:38 Influenza, high-dose, quadrivalent, PF 0 completed Not Available [facility] 03/13/2023 06:18:38 COVID-19, mRNA, LNP-S, PF, 100 mcg/0.5mL dose or 50 mcg/0.25mL dose 1 completed Not Available [facility] 03/13/2023 06:18:38 COVID-19, mRNA, LNP-S, PF, 100 mcg/0.5mL dose or 50 mcg/0.25mL dose 1 completed Not Available [facility] 03/13/2023 06:18:39 COVID-19, mRNA, LNP-S, PF, 100 mcg/0.5mL dose or 50 mcg/0.25mL dose 1 completed Not Available [facility] 03/13/2023 06:18:39 COVID-19, mRNA, LNP-S, bivalent, PF, 30 mcg/0.3 mL dose 2 completed Not Available [facility] 03/13/2023 06:18:39 pneumococcal polysaccharide PPV23 1 completed Not Available [facility] 03/13/2023 06:18:39 influenza, unspecified formulation 6 completed Not Available [facility] 03/13/2023 06:18:39 influenza, unspecified formulation 4 completed Not Available [facility] 03/13/2023 06:18:39 Influenza, high-dose, quadrivalent, PF 3 completed Not Available [facility] 05/15/2023 05:33:16 Past Encounters Encounter ID Performer Location Encounter Start Date Encounter Closed Date Diagnosis/Indication Diagnosis SNOMED-CT Code Diagnosis ICD10 Code Diagnosis Note [id number] Samantha Razo RN [address] [place] [address] 04/18/2024 10:14:04 04/18/2024 10:46:21 Osteoporotic fracture 17549250 M80.00XD Hypothyroidism 20751567 E03.9 Iron defic iency anemia 21033073 D50.9 Chronic ki dney disease 988623287 N18.9 Prediabetes 644275896 R7 3.03 Health Concerns Section Related Observation LastModified by Organization Detai ls LastModified Time None Recorded Concern Status LastModified by Organization Details LastModified Time None Recorded Payers Encounter Date Sequence Insurance Name Policy Number Policy Palacio Covered Member ID Palacio Member ID Guarantor Name 04/18/2024 1 [place] [employer] Digna Olson [id number] Digna Olson 04/18/2024 2 [place] [facility] [id number] Digna Olson [id number] Digna Olson OBGyn Episode No OBEpisode recorded.
--- OUTSIDE RECORDS SUMMARY | 2024-05-20 10:28 | XMS_ITS | Encounter Summary ---
Author Organization [facility] [place] [address] Care Team Providers Care Chief Growth Officer Name Role Phone Ana Her MD Primary Care Provider [phone] Encounter Details Date Type Department Care Team (Late st Contact Info) Description 03/09/2022 11:00 PM EST Ancillary Procedure Radiology Library at [facility] [place] [address] Ana Her MD [address] [place] [address] [facility] [address] [place], [place] [id number] Social History Tobacco Use Types Packs/Day Years [...] CT Chest (03/09/2022 10:56 PM EST) Narrative [facility] - 03/09/2022 10:56 PM EST This exam is auto-finalizing. It's purpose is for storage only. Ana Her MD IM FILM LIBRARY ORD ERABLES [place], [place] documented in this encounter Visit Diagnoses Not on filedocumented in this encounter Care Teams Chief Growth Officer Relationship Specialty Start Date End Date Ana Her MD [address] [facility] [address] [place] [address] PCP - General 07/29/13 documented as of this encounter
--- OUTSIDE RECORDS SUMMARY | 2024-05-20 10:28 | XMS_ITS | Encounter Summary ---
Author Organization [facility] [place] [address] Care Team Providers Care Supply Chain Development Manager Name Role Phone Ana Her MD Primary Care Provider [phone] Encounter Details Date Type Department Care Team (Late st Contact Info) Description 03/09/2022 Telephone [place] [address] Prakash Mendez MD [facility] [place] [address] Social History Tobacco Use Types Packs/Day Years [...] the mobile number listed in her chart ([phone]). Her other daughter answered the phone and reported that she had just dropped her off in the Emergency Department at [facility] and parked the car. She was walking back to the building to be with her. I reassured her that going to the Emergency Department seemed like a reasonable plan. I assured her that we are always happy to see her here at [facility] anytime and that they could call back anytime with further questions or concerns. This note will be routed to the provider mentioned above. Prakash Mendez MD documented in this encounter Plan of Treatment Not on file documented as of this encounter Visit Diagnoses Not on filedocumented in this encounter Care Teams Supply Chain Development Manager Relationship Specialty Start Date End Date Ana eHr MD [address] [place] [address] PCP - General 07/29/13 documented as of this encounter
--- OUTSIDE RECORDS SUMMARY | 2024-05-20 10:28 | XMS_ITS | Encounter Summary ---
[place] [address] Care Team Providers Care Stunt Double Name Role Phone Ana Her MD Primary Care Provider [phone] Reason for Visit * Auth/Cert Specialty Diagnoses / Procedures Referred By Christiano hackett Referred To Contact Diagnoses S/P repair of paraesophageal hernia Post-Op monitoring Procedures PRO LAPARSCOPY REPAIR PARAESOPHAGEAL HERNIA INCL FUNDOPLASTY W/O MESH LAPAROSCOPIC PARAESOPHAGEAL HERNIA REPAIR W/FUNDOPLASTY, W/O MESH (WRVU 26.6) MODIFIER TOUPET FUNDOPLASTY Laura Will MD [facility] [place] [address] [facility] Referral ID Status Reason Start Date Expiration Date Visits Re quested Visits Authorized [id number] 1 1 Encounter Details Date Type Department Care Team (Late st Contact Info) Description 03/05/2022 1:58 PM EDT Anesthesia Event [place] [id number] Alisa Naqvi MD [facility] [place] [address] Alessia Ramirez [place] [address] Anesthesia Record Procedure Summary Procedure Name Responsible [...] Procedure Summary Date: 03/05/22 Room / Location: [address] MAIN OR Anesthesia Start: 8 Anesthesia Stop: 1823 Procedures: LAPAROSCOPIC PARAESOPHAGEAL HERNIA REPAIR W/FUNDOPLASTY, W/O MESH (WRVU 26.6) (N/A Abdomen) MODIFIER TOUPET FUNDOPLASTY (N/A Abdomen) Diagnosis: (Paraesophageal Hernia) Surgeons: Laura Will MD Responsible Provider: Alisa Naqvi MD Anesthesia Type: general ASA Status: 3 All Anesthesia Providers: Anesthesiologist: Brayan Hubbard MD; Alisa Naqvi MD; Dario Franco MD Resawyer: Mo Vance DO Vitals Value Taken Time BP 125/75 03/05/22 1821 Temp Pulse 77 03/05/22 1823 Resp 18 03/05/22 1823 SpO2 100 % 03/05/22 182 Pain Level Vitals shown include unvalidated device data. Patient Location: PACU/[facility] Level of Consciousness: Awake and Alert [...] of left breast of female, estrogen receptor nsolxzrw51/25/2017 ??? Bicuspid aortic valve 06/10/2016 ??? Dyspnea [...] performed by Malika Chen MD at [facility] MAIN OR ??? PRO INTRAOP SENTINEL LYMPH ID W/DYE INJECTION Left 03/30/2017 INTRAOPERATIVE ID (MAPPING) SENTINEL LYMPH NODE,INCLUDES INJECTION (WRVU 2.5) performed by Malika Chen MD at [facility] MAIN OR ??? PRO MASTECTOMY PARTIAL Left 03/30/2017 MASTECTOMY PARTIAL (WRVU 10.13) performed by Malika Chen MD at [facility] MAIN OR ??? PRO UPPER GI ENDOSCOPY, DIAGNOSTIC N/A 01/08/2022 EGD, UPPER GI ENDOSCOPY performed by Laura Will MD at [facility] MAIN OR Social History Tobacco Use ??? [...] sneeze Cardiac Hx: Exercise stress test 10/07/21 [facility]: Resting electrocardiogram showed atrial fibrillation, right BBB, left anterior fascicular block. Patient achieved 4.64METS, achieved 93% of predicted HR for age. Electrocardiographic portion of test negative for ischemia. MPI negative for ischemia or infarction. EF 45%. Wall motion normal. ?? Echo 06/19/21 ([facility]): normal biventricular size and function, symmetric LVH. [...] PONV ppx Mo Shreyas DO Pinky 03/04/2022 Rheologist Pager #[phone] [place] - Other Informed Consent: Anesthetic plan [...] GERD (omeprazole) ?? Exercise stress test 10/07/21 [facility]: Resting electrocardiogram showed atrial fibrillation, right BBB, left anterior fascicular block. Patient achieved 4.64METS, achieved 93% of predicted HR for age. Electrocardiographic portion of test negative for ischemia. MPI negative for ischemia or infarction. EF 45%. Wall motion normal. ?? Echo 06/19/21 ([facility]): normal biventricular size and function, [...] 1 view ?? Followed by cardiology at [facility], notes under Care Everywhere. Last seen [...] mg documented in this encounter Care Teams Stunt Double Relationship Specialty Start Date End Date Ana Her MD Geovany [address] DR [facility] [address] [place] [address] PCP - General 07/29/13 documented as of this encounter
--- OUTSIDE RECORDS SUMMARY | 2024-05-20 10:28 | XMS_ITS | Encounter Summary ---
[place] [address] Care Team Providers Care Stripper Cutter Machine Name Role Phone Ana Her MD Primary Care Provider [phone] Reason for Visit * Auth/Cert Specialty Diagnoses / Procedures Referred By Christiano hackett Referred To Contact Diagnoses S/P repair of paraesophageal hernia Post-Op monitoring Procedures PRO LAPARSCOPY REPAIR PARAESOPHAGEAL HERNIA INCL FUNDOPLASTY W/O MESH LAPAROSCOPIC PARAESOPHAGEAL HERNIA REPAIR W/FUNDOPLASTY, W/O MESH (WRVU 26.6) MODIFIER TOUPET FUNDOPLASTY Shania Will MD [facility] [place] [address] [facility] Referral ID Status Reason Start Date Expiration Date Visits Re quested Visits Authorized [id number] 1 1 Encounter Details Date Type Department Care Team (Latest Contact Info) Description 03/05/2022 11:55 AM EDT - 03/07/2022 10:00 AM EDT Hospital Encounter [place] [id number] Shania Will MD [facility] [place] [address] Discharge Disposition: Home Social History Tobacco Use [...] of left breast of female, estrogen receptor [id number], Z17.0 ??? Anemia D64.9 ??? Aortic valve [...] Per chart review, her creatinine levels in 1811-7931 ranged from 0.87-1.50 indicative of possible undiagnosed [...] PM Shania Will MD General Surgery at [facility] Arrive at: Repairer [employer] Area [phone] Instructions Given to Patient at Discharge: Patient [...] hours please call the Surgery Clinic at [phone] before 5 PM on weekdays. For questions after hours and on weekends please call the hospital walnut dehydrator operator at [phone] and ask for the General Surgery resident recreational programs director. They may not be familiar with your [...] post Sly diet, as instructed by the governor assembler hydraulic in the hospital for a period of [...] renal function. Please call the clinic at [phone] to confirm or reschedule. Future Appointments Date Time Provider Department Center 04/03/2022 12:00 PM Shania Will MD [facility] SURG [facility] General Instructions None Future Appointments and Orders Future Appointments and Orders Future Appointments Provider Department Dept Phone 04/03/2022 12:00 PM Shania Will MD General Surgery at [facility] Arrive at: Repairer [employer] Area Signed: Shena Harden MD 03/07/22 7:[address] [facility] 2026 Primary [place] Physician: MD Geovany David DR [facility] [address] documented in this encounter Discharge Instructions * [...] hours please call the Surgery Clinic at [phone] before 5 PM on weekdays. For questions after hours and on weekends please call the hospital walnut dehydrator operator at [phone] and ask for the General Surgery resident recreational programs director. They may not be familiar with your [...] post Sly diet, as instructed by the governor assembler hydraulic in the hospital for a period of [...] renal function. Please call the clinic at [phone] to confirm or reschedule. Future Appointments Date Time Provider Department Center 04/03/2022 12:00 PM Shania Will MD [facility] SURG [facility] documented in this encounter Medications at Time [...] Ocampo RN - 03/07/2022 10:25 AM EDT [facility] Short Stay Unit Discharge Note All [...] Sly Diet Education to pt Digna Olson. Cocoa Milling Machine Operator metwith pt at bedside to [...] she is noticing some overall improvement post op.Cocoa Milling Machine Operator took note of this and [...] Department contact information provided. Pt appreciate of jingle writer's time. Nutrition to follow as needed. [...] Perez MD 03/05/2022 Minimally Invasive Surgery Pager #[phone] * Lorrie Slater RN - 03/05/2022 6:46 [...] of left breast of female, estrogen receptor [id number], Z17.0 ??? Anemia D64.9 ??? Aortic valve [...] 6.43) performed by Malika Chen MD at [facility] MAIN OR ??? PRO INTRAOP SENTINEL LYMPH ID W/DYE INJECTION Left 03/30/2017 ?? INTRAOPERATIVE ID (MAPPING) SENTINEL LYMPH NODE,INCLUDES INJECTION (WRVU 2.5) performed by Malika Chen MD at [facility] MAIN OR ??? PRO MASTECTOMY PARTIAL Left 03/30/2017 ?? MASTECTOMY PARTIAL (WRVU 10.13) performed by Malika Chen MD at [facility] MAIN OR ?? Cholecystectomy ?? Medications: [...] Operative Note Patient Name: Digna Olson : [id number] MR#: [id number] Case Date: 03/05/2022 Surgeon: Surgeon(s) and Role: [...] Flores MD - 03/05/2022 2:32 PM EDT [facility] Operative Note Patient Name: Digna Olson : [id number] MR#: [id number] Case Date: 03/05/2022 Surgeon: Surgeon(s) and Role: [...] Repair Paraesophageal Hernia Incl Fundoplasty W/O Mesh ([id number]) 03/05/2022 1:58 PM EDT Paraesophageal Hernia POCT GLUCOSE Routine 03/05/2022 12:18 PM EDT LAPAROSCOPIC PARAESOPHAGEAL HERNIA REPAIR W FUNDOPLASTY, W/O MESH Routine 03/05/2022 12:02 PM EDT documented in this encounter Results * (ABNORMAL) Differential, Automated (03/07/2022 5:08 AM EDT) Neutrophil % 80.0 % [facility] Neutrophil Absolute 5.30 1.70 - 6.10 x10(3)/mc L [facility] Lymph % 12.1 % [facility] Lymphocytes Abs 0.8(L) 0.9 - 3.2 x10(3)/mc L [facility] Monocyte % 7.6 % [facility] Monocyte Abs 0.5 0.3 - 0.9 x10(3)/mc L [facility] Eos % 0.0 % [facility] Eosinophils Abs 0.0 0.0 - 0.4 x10(3)/mc L [facility] Basophil % 0.0 % [facility] Baso Absolute 0.0 0.0 - 0.1 x10(3)/[facility] Immature Gran % 0.30 % [facility] Comment: Immature granulocytes(IG's)percentage and absolute count will include metamyelocytes, myelocytes, and promyelocytes. Blood smears from CBCs yielding IG's will be scanned manually for concordance. If this scan disagrees with the automated IG or if promyelocytes are noted, a manual differential will be performed. Immature Gran Absolute 0.02 0.00 - 0.04 x10(3)/[facility] Blood 03/07/2022 5:08 AM EDT 03/07/2022 5:19 AM EDT Narrative Resulting Agency Comment Spec In Lab Nino Levy MD HEMATOLOGY ORDERABLE S Performing Organization Address City/State/[facility] Co de Phone Number [facility] [place] [address] * (ABNORMAL) Hemogram (03/07/2022 5:08 AM EDT) White Blood Cell 6.6 4.0 - 9.5 x10(3)/[facility] Red Blood Cell 3.16(L) 4.00 - 5.21 x10(6)/[facility] Hemoglobin 10.7(L) 11.7 - 15.5 g/dL [facility] Hematocrit 31.7(L) 35.7 - 45.8 % [facility] Mean Cell Volume 100.3(H) 82.6 - 94.4 fL [facility] Mean Cell Hemoglobin 33.9(H) 27.1 - 32.0 pg [facility] Mean Cell Hemoglobin Concentration 33.8 31.7 - 35.0 g/dL [facility] Platelet 110(L) 145 - 357 x10(3)/[facility] RDW Standard Deviation 47.5(H) 37.0 - 46.0 fL [facility] RDW coefficient of variation 12.9 11.5 - 14.1 % [facility] Mean Platelet Volume 11.7 7.6 - 12.9 fL [facility] NRBC% auto 0.0 % [facility] NRBC Absolute 0.000 0.000 - 0.000 x10(3)/mc L [facility] Blood 03/07/2022 5:08 AM EDT 03/07/2022 5:19 AM EDT Narrative Resulting Agency Comment Spec In Lab Nino Levy MD HEMATOLOGY ORDERABLE S [facility] [place] [address] * Phosphorus (03/07/2022 5:08 AM EDT) Phosphorus 2.7 2.5 - 4.5 mg/dL [facility] Blood 03/07/2022 5:08 AM EDT 03/07/2022 5:19 AM EDT Narrative Resulting Agency Comment Spec In Lab Shania Will MD CHEMISTRY ORDERABLE S Performing Organization Address City/[facility]/ZIP Co de Phone Number [facility] [place] [address] * Magnesium (03/07/2022 5:08 AM EDT) Magnesium 0.89 0.69 - 1.07 mmol/L [facility] Blood 03/07/2022 5:08 AM EDT 03/07/2022 5:19 AM EDT Narrative Resulting Agency Comment Spec In Lab Shania Will MD CHEMISTRY ORDERABLE S [facility] [place] [address] * (ABNORMAL) Basic Metabolic Panel (non-fasting) (03/07/2022 5:08 AM EDT) Glucose 111 65 - 199 mg/dL [facility] Comment:Diabetes: >=200 mg/d L plus symptoms Blood Urea Nitrogen 22(H) 8 - 18 mg/dL [facility] Creatinine 0.93 0.70 - 1.20 mg/dL [facility] Sodium 131(L) 135 - 145 mmol/L [facility] Potassium 4.5 3.5 - 5.0 mmol/L [facility] Comment: Please note: ??Patients with WBC >100,000 may have falsely elevated Potassium levels. ??For accurate Potassium quantification in these patients send serum separator tube (gold top) for subsequent determinations. ??Contact the Clinical Chemistry Laboratory if there are any questions. Chloride 100 98 - 107 mmol/L [facility] Carbon Dioxide 22 22 - 31 mmol/L [facility] Anion Gap 9 5 - 15 mmol/L [facility] Calcium 9.2 8.5 - 10.5 mg/dL [facility] Est Glomerular Filtration Rate 64 >=60 mL/min/1. 73 m?? [facility] Comment: This patient's estimated [...] Lab Shania Will [place] [address] * (ABNORMAL) Differential, Automated (03/06/2022 10:15 AM EDT) Pathologist [facility] Neutrophil % 90.7 % [facility] Neutrophil Absolute 5.79 1.70 - 6.10 x10(3)/ L [facility] Lymph % 5.0 % [facility] Lymphocytes Abs 0.3(L) 0.9 - 3.2 x10(3)/ L [facility] Monocyte % 3.8 % [facility] Monocyte Abs 0.2(L) 0.3 - 0.9 x10(3)/[facility] Eos % 0.0 % [facility] Eosinophils Abs 0.0 0.0 - 0.4 x10(3)/[facility] Basophil % 0.0 % [facility] Baso Absolute 0.0 0.0 - 0.1 x10(3)/ L [facility] Immature Gran % 0.50 % [facility] Comment: Immature granulocytes(IG's)percentage and absolute count will include metamyelocytes, myelocytes, and promyelocytes. Blood smears from CBCs yielding IG's will be scanned manually for concordance. If this scan disagrees with the automated IG or if promyelocytes are noted, a manual differential will be performed. Immature Gran Absolute 0.03 0.00 - 0.04 x10(3)/ L [facility] Blood 03/06/2022 10:1 5 AM EDT 03/06/2022 10:21 AM EDT Narrative Resulting Agency Comment Spec In Lab Maryam MUELLER [place] [address] * (ABNORMAL) Hemogram (03/06/2022 10:15 AM EDT) White Blood Cell 6.4 4.0 - 9.5 x10(3)/mc L [facility] Red Blood Cell 3.07(L) 4.00 - 5.21 x10(6)/mc L [facility] Hemoglobin 10.5(L) 11.7 - 15.5 g/dL [facility] Hematocrit 31.1(L) 35.7 - 45.8 % [facility] Mean Cell Volume 101.3(H) 82.6 - 94.4 fL [facility] Mean Cell Hemoglobin 34.2(H) 27.1 - 32.0 pg [facility] Mean Cell Hemoglobin Concentration 33.8 31.7 - 35.0 g/dL [facility] Platelet 111(L) 145 - 357 x10(3)/ L [facility] RDW Standard Deviation 47.2(H) 37.0 - 46.0 fL [facility] RDW coefficient of variation 12.9 11.5 - 14.1 % [facility] Mean Platelet Volume 11.5 7.6 - 12.9 fL [facility] NRBC% auto 0.0 % [facility] NRBC Absolute 0.000 0.000 - 0.000 x10(3)/mc L [facility] Blood 03/06/2022 10:1 5 AM EDT 03/06/2022 10:21 AM EDT Narrative Resulting Agency Comment Spec In Lab Maryam MUELLER HEMATOLOGY ORDERABL ES [facility] [place] [address] * Phosphorus (03/06/2022 10:15 AM EDT) Phosphorus 3.3 2.5 - 4.5 mg/dL [facility] Blood 03/06/2022 10:1 5 AM EDT 03/06/2022 10:21 AM EDT Narrative Resulting Agency Comment Spec In Lab Shania Will MD CHEMISTRY ORDERABLE S Performing Organization Address City/[facility]/ZIP Co de Phone Number [facility] [place] [address] * Magnesium (03/06/2022 10:15 AM EDT) Magnesium 0.69 0.69 - 1.07 mmol/L [facility] Blood 03/06/2022 10:1 5 AM EDT 03/06/2022 10:21 AM EDT Narrative Resulting Agency Comment Spec In Lab Shania Will MD CHEMISTRY ORDERABLE S Performing Organization Address [facility] Co de Phone Number [facility] [place] [address] * (ABNORMAL) Basic Metabolic Panel (non-fasting) (03/06/2022 10:15 AM EDT) Pathologist [facility] Glucose 155 65 - 199 mg/dL [facility] Comment:Diabetes: >=200 mg/d L plus symptoms Blood Urea Nitrogen 29(H) 8 - 18 mg/dL [facility] Creatinine 1.25(H) 0.70 - 1.20 mg/dL [facility] Sodium 134(L) 135 - 145 mmol/L [facility] Potassium 4.8 3.5 - 5.0 mmol/L [facility] Comment: Please note: ??Patients with WBC >100,000 may have falsely elevated Potassium levels. ??For accurate Potassium quantification in these patients send serum separator tube (gold top) for subsequent determinations. ??Contact the Clinical Chemistry Laboratory if there are any questions. Chloride 101 98 - 107 mmol/L [facility] Carbon Dioxide 23 22 - 31 mmol/L [facility] Anion Gap 10 5 - 15 mmol/L [facility] Calcium 8.9 8.5 - 10.5 mg/dL [facility] Est Glomerular Filtration Rate 45(L) >=60 mL/min/1. 73 m?? [facility] Comment: This patient's estimated [...] [facility] Co de Phone Number [facility] [place] [address] * (ABNORMAL) Differential, Automated (03/06/2022 4:29 AM EDT) Neutrophil % 90.5 % [facility] Neutrophil Absolute 4.47 1.70 - 6.10 x10(3)/mc L [facility] Lymph % 6.9 % [facility] Lymphocytes Abs 0.3(L) 0.9 - 3.2 x10(3)/mc L [facility] Monocyte % 2.2 % [facility] Monocyte Abs 0.1(L) 0.3 - 0.9 x10(3)/mc L [facility] Eos % 0.0 % [facility] Eosinophils Abs 0.0 0.0 - 0.4 x10(3)/mc L [facility] Basophil % 0.2 % [facility] Baso Absolute 0.0 0.0 - 0.1 x10(3)/mc L [facility] Immature Gran % 0.20 % [facility] Comment: Immature granulocytes(IG's)percentage and absolute count will include metamyelocytes, myelocytes, and promyelocytes. Blood smears from CBCs yielding IG's will be scanned manually for concordance. If this scan disagrees with the automated IG or if promyelocytes are noted, a manual differential will be performed. Immature Gran Absolute 0.01 0.00 - 0.04 x10(3)/ L [facility] Blood 03/06/2022 4:29 AM EDT 03/06/2022 4:49 AM EDT Narrative Resulting Agency Comment Spec In Lab Prakash Mendez MD HEMATOLOGY ORDERABLE S [facility] [place] [address] * (ABNORMAL) Hemogram (03/06/2022 4:29 AM EDT) White Blood Cell 4.9 4.0 - 9.5 x10(3)/ L [facility] Red Blood Cell 3.08(L) 4.00 - 5.21 x10(6)/ L [facility] Hemoglobin 10.5(L) 11.7 - 15.5 g/dL [facility] Hematocrit 31.0(L) 35.7 - 45.8 % [facility] Mean Cell Volume 100.6(H) 82.6 - 94.4 fL [facility] Mean Cell Hemoglobin 34.1(H) 27.1 - 32.0 pg [facility] Mean Cell Hemoglobin Concentration 33.9 31.7 - 35.0 g/dL [facility] Platelet 104(L) 145 - 357 x10(3)/ L [facility] RDW Standard Deviation 47.5(H) 37.0 - 46.0 fL [facility] RDW coefficient of variation 12.9 11.5 - 14.1 % [facility] Mean Platelet Volume 11.8 7.6 - 12.9 fL [facility] NRBC% auto 0.0 % [facility] NRBC Absolute 0.000 0.000 - 0.000 x10(3)/mc L [facility] Blood 03/06/2022 4:29 AM EDT 03/06/2022 4:49 AM EDT Narrative Resulting Agency Comment Spec In Lab Prakash Mendez MD HEMATOLOGY ORDERABLE S [facility] [place] [address] * (ABNORMAL) Basic Metabolic Panel (non-fasting) (03/06/2022 4:29 AM EDT) Glucose 140 65 - 199 mg/dL [facility] Comment:Diabetes: >=200 mg/d L plus symptoms Blood Urea Nitrogen 31(H) 8 - 18 mg/dL [facility] Creatinine 1.32(H) 0.70 - 1.20 mg/dL [facility] Sodium 136 135 - 145 mmol/L [facility] Potassium 5.3(H) 3.5 - 5.0 mmol/L [facility] Comment: Please note: ??Patients with WBC >100,000 may have falsely elevated Potassium levels. ??For accurate Potassium quantification in these patients send serum separator tube (gold top) for subsequent determinations. ??Contact the Clinical Chemistry Laboratory if there are any questions. Chloride 103 98 - 107 mmol/L [facility] Carbon Dioxide 23 22 - 31 mmol/L [facility] Anion Gap 10 5 - 15 mmol/L [facility] Calcium 9.0 8.5 - 10.5 mg/dL [facility] Est Glomerular Filtration Rate 42(L) >=60 mL/min/1. 73 m?? [facility] Comment: This patient's estimated [...] Lab Shania Will MD CHEMISTRY ORDERABLE S [facility] [place] [address] * POCT Glucose (03/05/2022 12:18 PM EDT) Glucose, POC 94 65 - 199 mg/dL [facility] Comment: Supplemental ranges: <140 mg/dL before meals <180 mg/dL all other times of the day Blood 03/05/2022 12:1 8 PM EDT 03/05/2022 12:18 PM EDT Shania Will MD POINT OF CARE TEST ORDERABLES Performing Organization Address City/[facility]/ZIP Co de Phone Number [facility] [place] [address] documented in this encounter Visit Diagnoses Diagnosis [...] Unit) documented in this encounter Care Teams Stripper Cutter Machine Relationship Specialty Start Date End Date Ana Her MD Geovany [address] [place] [address] PCP - General 07/29/13 documented as of this encounter
--- OUTSIDE RECORDS SUMMARY | 2024-05-20 10:28 | XMS_ITS | Encounter Summary ---
[place] [address] Care Team Providers Care Machine Accountant Name Role Phone Ana Her MD Primary Care Provider [phone] Encounter Details Date Type Department Care Team (Late st Contact Info) Description 10/23/2022 Telephone Mammography/[place] [phone] Aby Loredo Social History Tobacco Use Types [...] filedocumented in this encounter Care Teams Machine Accountant Relationship Specialty Start Date End Date Ana Her MD [address] [place] [address] PCP - General 07/29/13 documented as of this encounter
--- OUTSIDE RECORDS SUMMARY | 2024-05-20 10:28 | XMS_ITS | Encounter Summary ---
Author Organization [facility] [place] [address] Care Team Providers Care Sustainability Director Name Role Phone Ana Her MD Primary Care Provider [phone] Encounter Details Date Type Department Care Team (Latest Contact Info) Description 04/03/2022 12:00 PM EST TH Visit (TeleHealth) [place] [address] Laura Will MD [facility] [address] [place] [address] Status post repair of paraesophageal diaphragmatic hernia [...] status documented in this encounter Care Teams Sustainability Director Relationship Specialty Start Date End Date Ana Her MD [facility] [address] [place] [address] PCP - General 07/29/13 documented as of this encounter
--- OUTSIDE RECORDS SUMMARY | 2024-05-20 10:28 | XMS_ITS | Clinical Summary ---
Author Organization [facility] [place] [address] Care Team Providers Care Cage Shift Manager Name Role Phone Ana Her MD Primary Care Provider [phone] Allergies No known active allergies Medications Medication [...] the eliquis and has been managed by [facility]. She has remained in Afib over [...] and ECG with Dr. Ana Her in [place] in January She will discuss ECHO results [...] - TT3 and FT4 nl - My SHIPPING HAND colleague called and spoke with covering MD [...] history exists Medical Devices Implanted Type Area Semiconductor Packages Platemaker Device Identifier Shelf Expiration Date Model / Serial / Lot Breast Clip-02/26/20 17 Implanted: by Enzo Burkett MD (Quantity not on file) Breast Clip Left: Breast Bard - 0614 05/04/2019 SENOMARK ULTRACOR BREAST TISSUE MARKER ULTRASOUND ENHANCED BLANCA / / [id number] Description:BLANCA Procedures Procedure Name Priority Date/Time Associated [...] of neck of femur, unspecified laterality 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 ? Jeanine Lobato TANK CAR LOADER IMG MAMMO ORD ERABLES * DXA Central [...] BMD measurements and plots are available in ESwift Identity under the imaging tab. Paper copies will be sent to providers without E-Tesaris access. If you have received this report without the data sheet and do not have access to Mic Network, please contact Radiology Echocardiography Technologist at [phone] Thursday thru Thursday 8am-4pm. Thank you for letting us participate in the care of this patient. ??If you are a health care provider and have any questions regarding this report, please contact the number below. ??For patients who have questions please contact the health anesthesiologist and critical care that requested your imaging first. [...] BMD measurements and plots are available in ENubliunder the imaging tab. Paper copies will be sent to providers without E- access.If you have received this report without the data sheet and do not haveaccess to E-, please contact Radiology Echocardiography Technologist at [phone] Thursday thrriday 8am-4pm. Thank you for letting us participate in the care of this patient. If youare a health care provider and have any questions regarding this report,please contact the number below. For patients who have questions please contactthe health anesthesiologist and critical care that requested your imaging first. Electronically signed by: Nat Epperson MD, Radiology [facility]([phone]), at 11/19/2020 1:09 PM Ricky Lowry MD IMG DEXA ORDERABLES from [...] Status decision made by: Patient Care Teams Cage Shift Manager Relationship Specialty Start Date End Date Ana Her MD [facility] [address] [place] [address] PCP - General 07/29/13
--- OUTSIDE RECORDS SUMMARY | 2024-05-20 10:29 | XMS_ITS | Encounter Summary ---
Author Organization [facility] [place] [address] Care Team Providers Care Fish Flipper Name Role Phone Ana Her MD Primary Care Provider [phone] Encounter Details Date Type Department Care Team (Late st Contact Info) Description 03/30/2017 Notes [place] [address] January Ward MSW Social History Tobacco Use [...] was recently diagnosed with invasive mucinous carcinoma. [facility] attempted to meet with pt in Same Day surgery this morning but she was still in radiology. I spoke with her ex-, Keith, who states she will be staying with him tondenise. Their granddaughters are traveling from [place] and plan to accompany pt to see her hoop punch operator helper at [facility] tomorrow. Pt has been followed by this physician for her cardiac problems. [facility] will continue to provide support and resources to pt. documented in this encounter Plan of Treatment Not on file documented as of this encounter Visit Diagnoses Not on filedocumented in this encounter Care Teams Fish Flipper Relationship Specialty Start Date End Date Ana Her MD [address] [facility] [address] [place] [address] PCP - General 07/29/13 documented as of this encounter
--- OUTSIDE RECORDS SUMMARY | 2024-05-20 10:29 | XMS_ITS | Encounter Summary ---
Author Organization [place] [address] Care Team Providers Care Stained Glass Painter Name Role Phone Ana Her MD Primary Care Provider [phone] Encounter Details Date Type Department Care Team (Late st Contact Info) Description 01/08/2022 7:42 AM EDT Anesthesia [place] [address] Alisa Naqvi MD [facility] [place] [address] Anesthesia Record Procedure Summary Procedure Name Responsible [...] cephalic vein (lateral side of arm), left; dtgp-hmi-cqwyva catheter system; Anatomical Landmarks; 20 gauge; Joslyn [...] Procedure Summary Date: 01/08/22 Room / Location: [facility] OR [address] [place] [address] MAIN OR Anesthesia Start: 741 Anesthesia Stop: 825 Procedure: EGD, UPPER GI ENDOSCOPY (N/A Trunk) Diagnosis: (Hiatal hernia) Surgeons: Laura Will MD Responsible Provider: Alisa Naqvi MD Anesthesia Type: general ASA Status: 3 All Anesthesia Providers: Anesthesiologist: Alisa Naqvi MD Precision Machinist: Nghia Valerio MD Vitals Value Taken Time BP 98/56 01/08/22 0823 Temp Pulse Resp SpO2 99 % 01/08/22826 Pain Level Vitals shown include unvalidated device data. Patient Location: PACU/[facility] Level of Consciousness: Conscious but Sleepy [...] of left breast of female, estrogen receptor fwsdizpc96/25/2017 ??? Bicuspid aortic valve 06/10/2016 ??? Dyspnea [...] 6.43) performed by Malika Chen MD at [facility] MAIN OR ??? PRO INTRAOP SENTINEL LYMPH ID W/DYE INJECTION Left 03/30/2017 INTRAOPERATIVE ID (MAPPING) SENTINEL LYMPH NODE,INCLUDES INJECTION (WRVU 2.5) performed by Malika Chen MD at [facility] MAIN OR ??? PRO MASTECTOMY PARTIAL Left 03/30/2017 MASTECTOMY PARTIAL (WRVU 10.13) performed by Malika Chen MD at [facility] MAIN OR Social History Tobacco Use [...] mg documented in this encounter Care Teams Stained Glass Painter Relationship Specialty Start Date End Date Ana Her MD [facility] [address] [facility] [place] [address] PCP - General 07/29/13 documented as of this encounter
--- OUTSIDE RECORDS SUMMARY | 2024-05-20 10:29 | XMS_ITS | Encounter Summary ---
Author Organization Count Includes [facility] [place] [address] Care Team Providers Care Prop Sawyer Name Role Phone Ana Her MD Primary Care Provider [phone] Encounter Details Date Type Department Care Team (Latest Contact Info) Description 01/08/2022 6:11 AM EDT - 01/08/2022 9:40 AM EDT Hospital Encounter [place] [address] Laura Park MD [facility] [place] [address] Discharge Disposition: Home Social History Tobacco Use [...] a nurse in the Thoracic Clinic at [phone]. After hours or on weekends or holidays please call: [phone] and ask to speak to the Thoracic Physician control area operator. Diet: You should follow a clear liquid [...] - 5pm): General Surgery and Bariatric Surgery [phone] Bariatric Surgeons: Drs. Park and John [phone] Consulting Psychologist: [phone] Dietitians: [phone] Outside of regular business hours, including weekends and holidays: Ask for General Surgery resident control area operator [phone] Please note, this call will be answered [...] of left breast of female, estrogen receptor tkehfdqhZ84.512, Z17.0 ??? Anemia D64.9 ??? Aortic valve [...] 6.43) performed by Malika Chen MD at [facility] MAIN OR ??? PRO INTRAOP SENTINEL LYMPH ID W/DYE INJECTION Left 03/30/2017 ?? INTRAOPERATIVE ID (MAPPING) SENTINEL LYMPH NODE,INCLUDES INJECTION (WRVU 2.5) performed by Malika Chen MD at [facility] MAIN OR ??? PRO MASTECTOMY PARTIAL Left 03/30/2017 ?? MASTECTOMY PARTIAL (WRVU 10.13) performed by Malika Chen MD at [facility] MAIN OR ?? Cholecystectomy ?? Medications: [...] Park MD - 01/08/2022 7:48 AM EDT [facility] Operative Note Patient Name: Digna Olson : [id number] MR#: [id number] Case Date: 01/08/2022 Surgeon: Surgeon(s) and Role: [...] Info Order Time SPECIMEN TO PATHOLOGY Gastric Woodruff for H Pylori Hiatal hernia Gastric Woodruff for H Pylori excision 01/08/2022 8:15 AM [...] 8:14 AM EDT Upper GI Endoscopy, Diagnostic (01703) Yes 01/08/2022 7:40 AM EDT Hiatal hernia POCT GLUCOSE Routine 01/08/2022 6:33 AM EDT documented in this encounter Results * Specimen to Pathology (01/08/2022 8:15 AM EDT) AP Specimen 01/08/2022 8:15 AM EDT 01/08/2022 8:15 AM EDT Narrative [facility] - 01/08/2022 8:15 AM EDT Specimen requisition ordered. ??Separate Pathology report to follow Laura Park MD PATHOLOGY/CYTOLOGY ORDERABLES [facility] [place] [address] * Surgical Pathology Report (01/08/2022 8:14 AM EDT) Final Diagnosis [id number] ? Location: [facility]; [facility]; A The signing pathologist has (i) examined the relevant preparation(s) for the specimen(s) and (ii) rendered or confirmed the diagnosis(es). . ?Surgical Pathology DIAGNOSIS A - Gastric ??Antrum for H Pylori, excision: - ??Antrum-type mucosa with reactive gastropathy. Electronically signed by: ?Umang Raymundo MD Verified: ??01/09/2022 16:36 ??Pathologist Performed at: ??-[facility] Dept. of Pathology, [place], [place] SPECIMEN(S) SUBMITTED A - Gastric ??Antrum for H Pylori, excision (1) CLINICAL INFORMATION Hiatal hernia SPECIMEN PROCESSING A - Labeled/Fixativ e: Gastric antrum for H. pylori, formalin. Quantity/Size: Single, 0.3 cm. Tissue Description: Soft, pink tissue. Sections/Proces sing: Submitted en toto ??in 1 cassette labeled A1. ??sns 01/09/2022 4:36 PM EDT [facility] GI Biopsy 01/08/2022 8:14 AM EDT 01/08/2022 8:14 AM EDT Laura Park MD PATHOLOGY/CYTOLOGY ORDERABLES [facility] [place] [address] * POCT Glucose (01/08/2022 6:33 AM EDT) Glucose, POC 120 65 - 199 mg/dL [facility] Comment: Supplemental ranges: <140 mg/dL before meals <180 mg/dL all other times of the day Blood 01/08/2022 6:33 AM EDT 01/08/2022 6:33 AM EDT Laura Park MD POINT [place] [address] documented in this encounter Visit Diagnoses Not on filedocumented in this encounter Active and Recently Administered Medications Care Teams Prop Sawyer Relationship Specialty Start Date End Date Ana Her MD [address] [place] [address] PCP - General 07/29/13 documented as of this encounter
--- OUTSIDE RECORDS SUMMARY | 2024-05-20 10:29 | XMS_ITS | Encounter Summary ---
Author Organization [facility] [place] [address] Care Team Providers Care Hydraulic Press Operator Name Role Phone Ana eHr MD Primary Care Provider [phone] Encounter Details Date Type Department Care Team (Latest Contact Info) Description 05/31/2019 10:16 AM EST - 05/31/2019 11:59 PM EST Hospital Encounter Mammography/[place] [phone] Jeanine Lobato APRN [facility] [place] [address] History of breast cancer Discharge Disposition: Home [...] BIRADS CATEGORY 2: Benign findings. * ??[employer] and The Society of [...] breast documented in this encounter Care Teams Hydraulic Press Operator Relationship Specialty Start Date End Date Ana Her MD [address] [place] [address] PCP - General 07/29/13 documented as of this encounter
--- OUTSIDE RECORDS SUMMARY | 2024-05-20 10:29 | XMS_ITS | Encounter Summary ---
[place] [address] Care Team Providers Care Washcloth Folder Name Role Phone Ana Her MD Primary Care Provider [phone] Encounter Details Date Type Department Care Team (Late st Contact Info) Description 05/06/2017 Telephone Radiation Oncology at [address] [address] Maria A Antonio RN Social [...] on filedocumented in this encounter Care Teams Washcloth Folder Relationship Specialty Start Date End Date Ana Her MD [address] [facility] 1 [place] [address] PCP - General 07/29/13 documented as of this encounter
--- OUTSIDE RECORDS SUMMARY | 2024-05-20 10:29 | XMS_ITS | Encounter Summary ---
Author Organization [facility] [place] [address] Care Team Providers Care Oracle Database Manager Name Role Phone Ana Her MD Primary Care Provider [phone] Reason for Visit * Reason Comments Follow-up Encounter Details Date Type Department Care Team (Late st Contact Info) Description 05/31/2019 11:45 AM EST Office Visit [place] [address] Ricky Lowry MD Malignant neoplasm of lower-outer [...] ??Excision with image-guided localization ?Lymph Node Sampling: ??[place] lymph node(s) ?Specimen Laterality: ??Left Tumor ?Histologic [...] ??DCIS not present in specimen Lymph Nodes ?[place] Lymph Nodes: [place] lymph node biopsy performed ?Number of [place] Nodes Examined: ??3 ?Number of Lymph Node(s) [...] stenosis > A Fib. Cardiology at [facility]. S/P successful cardioversion May 2018. [...] positive documented in this encounter Care Teams Oracle Database Manager Relationship Specialty Start Date End Date Ana Her MD [facility] [address] [facility] [address] [place] [address] PCP - General 07/29/13 documented as of this encounter
--- OUTSIDE RECORDS SUMMARY | 2024-05-20 10:29 | XMS_ITS | Encounter Summary ---
[place] [address] Care Team Providers Care Human Resources Executive Name Role Phone Ana Her MD Primary Care Provider [phone] Encounter Details Date Type Department Care Team (Late st Contact Info) Description 06/12/2021 Telephone [place] [address] Chelsie Lauren Social History Tobacco Use Types [...] on filedocumented in this encounter Care Teams Human Resources Executive Relationship Specialty Start Date End Date Ana Her MD [address] [place] [address] PCP - General 07/29/13 documented as of this encounter
--- OUTSIDE RECORDS SUMMARY | 2024-05-20 10:29 | XMS_ITS | Encounter Summary ---
[place] [address] Care Team Providers Care Daily Release And Dupe Printer Name Role Phone Ana Her MD Primary Care Provider [phone] Encounter Details Date Type Department Care Team (Late st Contact Info) Description 06/12/2021 Telephone [place] [phone] Chelsie Lauren Social History Tobacco Use Types [...] on filedocumented in this encounter Care Teams Daily Release And Dupe Printer Relationship Specialty Start Date End Date Ana Her MD [address] [place] [address] PCP - General 07/29/13 documented as of this encounter
--- OUTSIDE RECORDS SUMMARY | 2024-05-20 10:29 | XMS_ITS | Encounter Summary ---
Author Organization [facility] [place] [address] Care Team Providers Care Big Data Software Engineer Name Role Phone Ana Her MD Primary Care Provider [phone] Encounter Details Date Type Department Care Team (Late st Contact Info) Description 10/23/2017 9:43 AM EDT - 10/23/2017 11:59 PM EDT Hospital En[place] [phone] Hiral Padgett, WENDY History of breast cancer [...] breast documented in this encounter Care Teams Big Data Software Engineer Relationship Specialty Start Date End Date Ana Her MD [address] [place] [address] PCP - General 07/29/13 documented as of this encounter
--- OUTSIDE RECORDS SUMMARY | 2024-05-20 10:29 | XMS_ITS | Encounter Summary ---
[place] [address] Care Team Providers Care Railcar Brake Operator Name Role Phone Ana Her MD Primary Care Provider [phone] Reason for Visit * Reason Comments Schedule Office Case Encounter Details Date Type Department Care Team (Late st Contact Info) Description 04/23/2017 2:00 PM EST Office Visit Hematology [place] [address] Ricky Lowry MD Malignant neoplasm of lower-outer [...] ??Excision with image-guided localization ?Lymph Node Sampling: ??[place] lymph node(s) ?Specimen Laterality: ??Left Tumor ?Histologic [...] ??DCIS not present in specimen Lymph Nodes ?[place] Lymph Nodes: [place] lymph node biopsy performed ?Number of [place] Nodes Examined: ??3 ?Number of Lymph Node(s) [...] DEXA scan was in this year at [facility]. There is no history of thromboembolic events. [...] positive documented in this encounter Care Teams Railcar Brake Operator Relationship Specialty Start Date End Date Ana Her MD [address] [place] [address] PCP - General 07/29/13 documented as of this encounter
--- OUTSIDE RECORDS SUMMARY | 2024-05-20 10:29 | XMS_ITS | Encounter Summary ---
[place] [address] Care Team Providers Care Blending Kettle Tender Name Role Phone Ana Her MD Primary Care Provider [phone] Encounter Details Date Type Department Care Team (Late st Contact Info) Description 12/17/2021 Telephone [place] [address] Roma Estrada RN Social History Tobacco Use [...] on filedocumented in this encounter Care Teams Blending Kettle Tender Relationship Specialty Start Date End Date Ana Her MD [address] [place] [address] PCP - General 07/29/13 documented as of this encounter
--- OUTSIDE RECORDS SUMMARY | 2024-05-20 10:29 | XMS_ITS | Encounter Summary ---
Author Organization [facility] [place] [address] Care Team Providers Care Case Packer Name Role Phone Ana Her MD Primary Care Provider [phone] Reason for Visit * Reason Comments Radiation Consult * Consultation (Routine) - Closed Specialty Diagnoses / Procedures Referred By Christiano hackett Referred To Contact Radiation Oncology Diagnoses Breast cancer Malika Chen MD [facility] [place] [address] Stj Rad Onc Office [address] [place] [phone] Referral ID Status Reason Start Date Expiration Date Visits Re quested Visits Authorized [id number] Closed 03/17/2017 03/17/2018 1 1 Encounter Details Date Type Department Care Team (Late st Contact Info) Description 04/13/2017 10:00 AM EST Office Visit Radiation Oncology at [address] [address] Faye Velez MD [facility] [place] [address] Malignant neoplasm of left female breast, unspecified [...] cm from nipple. 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 03/03/[address] [...] she is being evaluated for afib @ [facility] W. 04/15/17; has [...] 6.43) performed by Malika Chen MD at [facility] MAIN OR ??? PRO INTRAOP SENTINEL LYMPH ID W/DYE INJECTION Left 03/30/2017 INTRAOPERATIVE ID (MAPPING) SENTINEL LYMPH NODE,INCLUDES INJECTION (WRVU 2.5) performed by Malika Chen MD at [facility] MAIN OR ??? PRO MASTECTOMY, PARTIAL Left 03/30/2017 MASTECTOMY PARTIAL (WRVU 10.13) performed by Malika Chen MD at [facility] MAIN OR Your Medications These changes [...] A: Breast ca, L, mucinous, gr 2, ER+NY+, Her2 neg, s/p lumpectomy & SNB, pT1b [...] breast; cough; shortness of breath; tiredness. Late/terminal worker side effects to breast discussed include: [...] breast documented in this encounter Care Teams Case Packer Relationship Specialty Start Date End Date Ana Her MD [address] [place] [address] PCP - General 07/29/13 documented as of this encounter
--- OUTSIDE RECORDS SUMMARY | 2024-05-20 10:29 | XMS_ITS | Encounter Summary ---
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, estrogen receptor positive Macromastia Jeanine Lobato APRN [facility] [place] [address] [facility] [address] [address] Referral ID Status Reason Start Date Expiration Date V isits Requested Visits Authorized [id number] Closed Consult, Test & Treat 06/11/2021 06/11/2022 1 1 Encounter Details Date Type Department Care Team (Late st Contact Info) Description 06/11/2021 10:00 AM EST Office [place] [address] Jeanine Lobato APRN [facility] [place] [address] Encounter for follow-up surveillance of [...] this encounter Progress Notes * Jeanine Lobato, JAWBONE BREAKER - 06/11/2021 10:00 AM EST Images from [...] mm Grade Intermediate Margins Negative ER Positive [place] Positive HER-2 Negative OncotypeDx Recurrence Score N/A [...] Family history of ovarian cancer No Ashkenazi Jain heritage No Known genetic mutation Not tested [...] free apps for your cell phone from [employer] (Healthy Living) and [employer] (StepUp). All questions were answered to the patient's satisfaction and they state understanding and agreement with today's treatment plan. They are encouraged to follow up sooner if they develop any new or concerning symptoms. Jeanine Lobato APRN Surgical Oncology P [phone] F [phone] [facility] documented in this encounter Plan of [...] breast documented in this encounter Care Teams School Transportation Director Relationship Specialty Start Date End Date Ana Her MD [address] [place] [address] PCP - General 07/29/13 documented as of this encounter
--- OUTSIDE RECORDS SUMMARY | 2024-05-20 10:29 | XMS_ITS | Encounter Summary ---
Author [place] [address] Care Team Providers Care Electric Meter Tester Name Role Phone Ana Her MD Primary Care Provider [phone] Encounter Details Date Type Department Care Team (Late st Contact Info) Description 05/10/2018 2:15 PM EST Office [place] [address] Hiral Padgett, WENDY History of breast cancer [...] with image-guided localization ?Lymph Node Sampling: ?? [place] lymph node(s) ?Specimen Laterality: ?? Left Tumor [...] ?DCIS not present in specimen Lymph Nodes ?[place] Lymph Nodes: ?? [place] lymph node biopsy performed ?Number of [place] Nodes Examined: ?3 ?Number of Lymph Node(s) [...] mammogram today is cat 2. Leaving for [place] later today for a cardiac ablation/a fib at [facility]. Objective: Physical Exam Constitutional: She is oriented [...] breast documented in this encounter Care Teams Electric Meter Tester Relationship Specialty Start Date End Date Ana Her MD [address] [place] [address] PCP - General 07/29/13 documented as of this encounter
--- OUTSIDE RECORDS SUMMARY | 2024-05-20 10:29 | XMS_ITS | Encounter Summary ---
Author Organization [facility] [place] [address] Care Team Providers Care Senior Windows Systems Administrator Name Role Phone Ana Her MD Primary Care Provider [phone] Encounter Details Date Type Department Care Team (Latest Contact Info) Description 01/23/2022 12:15 PM EDT TH Visit (TeleHealth) [place] [address] Laura Will MD [facility] [place] [address] Paraesophageal hernia Social History Tobacco Use Types [...] She is followed by cardiology at [facility], and is on xarelto. Impression: Symptomatic paraesophageal [...] gangrene documented in this encounter Care Teams Senior Windows Systems Administrator Relationship Specialty Start Date End Date Ana Her MD [address] [facility] 1 [place] [address] PCP - General 07/29/13 documented as of this encounter
--- OUTSIDE RECORDS SUMMARY | 2024-05-20 10:29 | XMS_ITS | Encounter Summary ---
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 HEMATOLOGY/[place] [address] [facility] Rad Xray [address] [place] [address] [place] [address] Referral ID Status Reason Start Date Expiration Date V isits Requested Visits Authorized [id number] Closed Specialty Service Requested 05/22/2020 11/19/2021 1 [...] and/or Whole Body (Generic) Ricky Lowry MD [facility] HEMATOLOGY/[place] [address] [facility] Rad Xray [address] [place] [address] Dr SeoNADINE briscoe [id number] Referral ID Status Reason Start Date Expiration Date V isits Requested Visits Authorized [id number] Closed Specialty Service Requested 05/22/2020 11/19/2021 1 1 Encounter Details Date Type Department Care Team (Latest Contact Info) Description 11/15/2020 2:25 PM EDT - 11/15/2020 11:59 PM EDT Hospital Encounter XRay at [address] [place] [address] Ricky Lowry MD Malignant neoplasm of lower-outer quadrant of left breast of female, estrogen receptor positive; Osteopenia of neck of femur, unspecified laterality; 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 Paper copies will be sent to providers without E- access. If you have received this report without the data sheet and do not have access to [employer], please contact Radiology Hydraulic Jack Mechanic at [phone] Thursday thru Thursday 8am-4pm. Thank you for letting us participate in the care of this patient. ??If you are a health care provider and have any questions regarding this report, please contact the number below. ??For patients who have questions please contact the health pet care worker that requested your imaging first. ? Narrative [...] BMD measurements and plots are available in [employer] the imaging tab. Paper copies will be sent to providers without - access.If you have received this report without the data sheet and do not haveaccess to [facility], please contact Radiology Hydraulic Jack Mechanic at [phone] Thursday thrrid 8am-4pm. Thank you for letting us participate in the care of this patient. If youare a health care provider and have any questions regarding this report,please contact the number below. For patients who have questions please contactthe health pet care worker that requested your imaging first. 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
--- OUTSIDE RECORDS SUMMARY | 2024-05-20 10:29 | XMS_ITS | Encounter Summary ---
Author Organization [facility] [place] [address] Care Team Providers Care Neurology Technician Name Role Phone Ana Her MD Primary Care Provider [phone] Encounter Details Date Type Department Care Team (Late st Contact Info) Description 05/31/2019 1:00 PM EST Office [place] [address] Jeanine Lobato LEAD QA [facility] [place] [address] Encounter for follow-up surveillance of breast cancer; [...] obtained which revealed IDC which is ER/HI+, Her2-. She hasno known breast masses, no adenopathy, no nipple discharge. 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 He lives in [place]. She enjoys reading and cooking. She does [...] situation. Results: Imaging performed (bilateral mammogram) at [facility] today shows no evidence of malignancy, BIRADS [...] symptoms. Jeanine Lobato APRN Surgical Oncology P [phone] F [phone] [facility] documented in this encounter Plan of [...] mammogram documented in this encounter Care Teams Neurology Technician Relationship Specialty Start Date End Date Ana Her MD [facility] [address] [facility] [facility] 1 [place] [address] PCP - General 07/29/13 documented as of this encounter
--- OUTSIDE RECORDS SUMMARY | 2024-05-20 10:29 | XMS_ITS | Encounter Summary ---
[place] [address] Care Team Providers Care Corporate Planner Name Role Phone Ana Her MD Primary Care Provider [phone] Reason for Visit * Reason Comments Follow-up Encounter Details Date Type Department Care Team (Late st Contact Info) Description 11/29/2019 2:45 PM EDT Office Visit Hematology [place] [address] Ricky Lowry MD Malignant neoplasm of lower-outer [...] ??Excision with image-guided localization ?Lymph Node Sampling: ??[place] lymph node(s) ?Specimen Laterality: ??Left Tumor ?Histologic [...] ??DCIS not present in specimen Lymph Nodes ?[place] Lymph Nodes: [place] lymph node biopsy performed ?Number of [place] Nodes Examined: ??3 ?Number of Lymph Node(s) [...] A Fib. Cardiology at [facility]. S/P successful cardioversion May 2018. [...] positive documented in this encounter Care Teams Corporate Planner Relationship Specialty Start Date End Date Ana Her MD [address] [place] [address] PCP - General 07/29/13 documented as of this encounter
--- OUTSIDE RECORDS SUMMARY | 2024-05-20 10:29 | XMS_ITS | Encounter Summary ---
[place] [address] Care Team Providers Care Master Yacht Name Role Phone Ana Her MD Primary Care Provider [phone] Encounter Details Date Type Department Care Team (Late st Contact Info) Description 11/09/2018 2:45 PM EDT Office Visit Hematology [place] [address] Ricky Lowry MD Malignant neoplasm of lower-outer [...] ??Excision with image-guided localization ?Lymph Node Sampling: ??[place] lymph node(s) ?Specimen Laterality: ??Left Tumor ?Histologic [...] ??DCIS not present in specimen Lymph Nodes ?[place] Lymph Nodes: [place] lymph node biopsy performed ?Number of [place] Nodes Examined: ??3 ?Number of Lymph Node(s) [...] Cardiology at [facility]. S/P successful cardioversion May 2018. DEXA scan [...] laterality documented in this encounter Care Teams Master Yacht Relationship Specialty Start Date End Date Ana Her MD [address] [place] [address] PCP - General 07/29/13 documented as of this encounter
--- OUTSIDE RECORDS SUMMARY | 2024-05-20 10:29 | XMS_ITS | Encounter Summary ---
Author Organization [facility] [place] [address] Care Team Providers Care Laundry Sorter Name Role Phone Ana Her MD Primary Care Provider [phone] Reason for Visit * Reason Comments Follow Up Surgery Encounter Details Date Type Department Care Team (Late st Contact Info) Description 07/13/2017 1:30 PM EDT Office [place] [address] Hiral Padgett, WENDY History of breast cancer [...] with image-guided localization ?Lymph Node Sampling: ?? [place] lymph node(s) ?Specimen Laterality: ?? Left Tumor [...] ?DCIS not present in specimen Lymph Nodes ?[place] Lymph Nodes: ?? [place] lymph node biopsy performed ?Number of [place] Nodes Examined: ?3 ?Number of Lymph Node(s) [...] Ana Her MD [facility] [address] [place] [address] PCP - General 07/29/13 documented as of this encounter
--- OUTSIDE RECORDS SUMMARY | 2024-05-20 10:29 | XMS_ITS | Encounter Summary ---
Author Organization [facility] [place] [address] Care Team Providers Care Harness Cleaner Name Role Phone Ana Her MD Primary Care Provider [phone] Encounter Details Date Type Department Care Team (Latest Contact Info) Description 03/30/2017 8:30 AM [facility] Hospital En[place] [address] Malika Chen MD [facility] [place] [address] Malignant neoplasm of upper-outer quadrant of left [...] positive documented in this encounter Care Teams Harness Cleaner Relationship Specialty Start Date End Date Ana Her MD [address] [place] [address] PCP - General 07/29/13 documented as of this encounter
--- OUTSIDE RECORDS SUMMARY | 2024-05-20 10:29 | XMS_ITS | Encounter Summary ---
[place] [address] Care Team Providers Care Cottage Attendant Name Role Phone Ana Her MD Primary Care Provider [phone] Encounter Details Date Type Department Care Team (Late st Contact Info) Description 01/08/2022 7:30 AM EDT - 01/08/2022 8:40 AM EDT Surgery [place] [address] Laura Park MD [facility] [place] [address] EGD, UPPER GI ENDOSCOPY (WRVU 2.09) Social [...] a nurse in the Thoracic Clinic at [phone]. After hours or on weekends or holidays please call: [phone] and ask to speak to the Thoracic Physician cardiac nurse practitioner. Diet: You should follow a clear liquid [...] - 5pm): General Surgery and Bariatric Surgery [phone] Bariatric Surgeons: Drs. Park and John [phone] Residential Support Worker: [phone] Dietitians: [phone] Outside of regular business hours, including weekends and holidays: Ask for General Surgery resident cardiac nurse practitioner [phone] Please note, this call will be answered [...] mg Tablet 03/19/2021 anastrozole (Arimidex) 1 mg TabletIndications:Dinane campuzano neoplasm of lower-outer quadrant of left [...] of left breast of female, estrogen receptor sucxsoxzU20.512, Z17.0 ??? Anemia D64.9 ??? Aortic valve [...] 6.43) performed by Malika Chen MD at [facility] MAIN OR ??? PRO INTRAOP SENTINEL LYMPH ID W/DYE INJECTION Left 03/30/2017 ?? INTRAOPERATIVE ID (MAPPING) SENTINEL LYMPH NODE,INCLUDES INJECTION (WRVU 2.5) performed by Malika Chen MD at [facility] MA[facility] OR ??? PRO MASTECTOMY PARTIAL Left 03/30/2017 ?? MASTECTOMY PARTIAL (WRVU 10.13) performed by Malika Chen MD at [facility] MA[facility] OR ?? Cholecystectomy ?? Medications: [...] Park MD - 01/08/2022 7:48 AM EDT [facility] Operative Note Patient Name: Digna Olson : [id number] MR#: [id number] Case Date: 01/08/2022 Surgeon: Surgeon(s) and Role: [...] Info Order Time SPECIMEN TO PATHOLOGY Gastric [place] for H Pylori Hiatal hernia Gastric [place] for H Pylori excision 01/08/2022 8:15 AM [...] 8:14 AM EDT Upper GI Endoscopy, Diagnostic (63651) Yes 01/08/2022 7:40 AM EDT Hiatal hernia POCT GLUCOSE Routine 01/08/2022 6:33 AM EDT documented in this encounter Results * Specimen to Pathology (01/08/2022 8:15 AM EDT) AP Specimen 01/08/2022 8:15 AM EDT 01/08/2022 8:15 AM EDT Narrative [facility] - 01/08/2022 8:15 AM EDT Specimen requisition ordered. ??Separate Pathology report to follow Laura Park MD PATHOLOGY/CYTOLOGY ORDERABLES [facility] [place] [address] * Surgical Pathology Report (01/08/2022 8:14 AM EDT) Final Diagnosis [id number] ? Location: SDP; SD36; A The signing pathologist has (i) examined the relevant preparation(s) for the specimen(s) and (ii) rendered or confirmed the diagnosis(es). . ?Surgical Pathology DIAGNOSIS A - Gastric ??Antrum for H Pylori, excision: - ??Antrum-type mucosa with reactive gastropathy. Electronically signed by: ?Umang Raymundo MD Verified: ??01/09/2022 16:36 ??Pathologist Performed at: ??-[facility] Dept. of Pathology, [place], [place] SPECIMEN(S) SUBMITTED A - Gastric ??Antrum [...] Park MD PATHOLOGY/CYTOLOGY ORDERABLES Performing Organization Address City/State/[facility] Co de Phone Number [facility] [place] [address] * POCT Glucose (01/08/2022 6:33 AM EDT) Glucose, POC 120 65 - 199 mg/dL [facility] Comment: Supplemental ranges: <140 mg/dL before meals <180 mg/dL all other times of the day Blood 01/08/2022 6:33 AM EDT 01/08/2022 6:33 AM EDT Laura Park MD POINT [place] [address] documented in this encounter Visit Diagnoses Not on filedocumented in this encounter Active and Recently Administered Medications Care Teams Cottage Attendant Relationship Specialty Start Date End Date Ana Her MD [address] [facility] 1 [place] [address] PCP - General 07/29/13 documented as of this encounter
--- OUTSIDE RECORDS SUMMARY | 2024-05-20 10:29 | XMS_ITS | Encounter Summary ---
[place] [address] Care Team Providers Care Mother Superior Name Role Phone Ana Her MD Primary Care Provider [phone] Encounter Details Date Type Department Care Team (Late st Contact Info) Description 04/05/2018 Telephone [place] [address] Adrianna Jones Social History Tobacco Use Types [...] Padgett. Patient advises she is admitted at [facility] for afib and is pending procedure etc. Patient will call to reschedule once she is discharged home. documented in this encounter Plan of Treatment Not on file documented as of this encounter Visit Diagnoses Not on filedocumented in this encounter Care Teams Mother Superior Relationship Specialty Start Date End Date Ana Her MD [address] [place] [address] PCP - General 07/29/13 documented as of this encounter
--- OUTSIDE RECORDS SUMMARY | 2024-05-20 10:29 | XMS_ITS | Encounter Summary ---
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 Procedures DXA Central-Spine, Hip, And/Or Whole Body (Generic) Ricky Lowry MD [facility] HEMATOLOGY/[place] [address] [facility] Rad Xray [address] [place] [address] [place] [address] Referral ID Status Reason Start Date Expiration Date V isits Requested Visits Authorized [id number] Closed Specialty Service Requested 05/10/2018 05/10/2019 1 1 Reason for Visit * Diagnostic Test (Routine) - Closed Specialty Diagnoses / Procedures Referred By Contac t Referred To Contact Radiology Diagnoses Malignant neoplasm of lower-outer quadrant of left breast of female, estrogen receptor positive Osteopenia of neck of femur, 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 Procedures DXA Central-Spine, Hip, And/Or Whole Body (Generic) Ricky Lowry MD [facility] HEMATOLOGY/[place] [address] [facility] Rad Xray [address] [place] [address] Dr [place], [place] [address] Referral ID Status Reason Start Date Expiration Date V isits Requested Visits Authorized [id number] Closed Specialty Service Requested 05/10/2018 05/10/2019 1 1 Encounter Details Date Type Department Care Team (Latest Contact Info) Description 11/09/2018 1:03 PM EDT - 11/09/2018 11:59 PM EDT Hospital Encounter XRay at [address] [place] [address] Ricky Lowry MD Malignant neoplasm of lower-outer quadrant of left breast of female, estrogen receptor positive; Osteopenia of neck of femur, unspecified laterality; 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 Paper copies will be sent to providers without [employer] access. If you have received this report without the data sheet and do not have access to [employer], please contact Radiology Straightening Roll Operator at [phone] Thursday thru Thursday 8am-4pm. Thank you for letting us participate in the care of this patient. For questions regarding this report, please contact the number below. ? Electronically signed by: JULIET Jackson [facility] ([phone]), at 11/10/2018 10:55 AM Narrative 11/10/2018 10:55 [...] diagnosis: Normal bone mineral density. Procedure Note Khusih Hughes MD - 11/10/2018 EXAMINATION: DXA CENTRAL-SPINE, [...] BMD measurements and plots are available in [employer] the imaging tab. Paper copies will be sent to providers without [employer] access.If you have received this report without the data sheet and do not haveaccess to [employer], please contact Radiology Straightening Roll Operator at [phone] Thursday thruFriday 8am-4pm. Thank you for letting us participate in the care of this patient. Forquestions regarding this report, please contact the number below. Electronically signed by: Khushi Hughes Radiology [place] ([phone]),at 11/10/2018 10:55 AM Ricky Lowry MD IMG DEXA ORDERABLES documented in this encounter Visit Diagnoses Diagnosis Malignant neoplasm of lower-outer quadrant of left breast of female, estrogen receptor positive Osteopenia of neck of femur, unspecified laterality MCC current use of aromatase inhibitor Use of aromatase inhibitors documented in this encounter Care Teams Territory Supervisor Relationship Specialty Start Date End Date Ana Her MD [facility] [address] [facility] [facility] 1 [place] [address] PCP - General 07/29/13 documented as of this encounter
--- OUTSIDE RECORDS SUMMARY | 2024-05-20 10:29 | XMS_ITS | Encounter Summary ---
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 Results: Last DXA [...] [facility] Pager - [phone] No future appointments. documented in this encounter Plan of Treatment Not on file documented as of this encounter Visit Diagnoses Diagnosis Malignant neoplasm of lower-outer quadrant of left breast of female, estrogen receptor positive detention current use of aromatase inhibitor Use of aromatase inhibitors documented in this encounter Care Teams Account Installer Relationship Specialty Start Date End Date Ana Her MD [address] [place] [address] PCP - General 07/29/13 documented as of this encounter
--- OUTSIDE RECORDS SUMMARY | 2024-05-20 10:29 | XMS_ITS | Encounter Summary ---
[place] [address] Care Team Providers Care Players Assistant Name Role Phone Ana Her MD Primary Care Provider [phone] Reason for Visit * Reason Comments Follow-up Encounter Details Date Type Department Care Team (Late st Contact Info) Description 11/15/2020 4:00 PM EDT Office Visit Hematology [place] [address] Laura Joaquin PA Malignant neoplasm of lower-outer [...] ??Excision with image-guided localization ?Lymph Node Sampling: ??[place] lymph node(s) ?Specimen Laterality: ??Left Tumor ?Histologic [...] ??DCIS not present in specimen Lymph Nodes ?[place] Lymph Nodes: [place] lymph node biopsy performed ?Number of [place] Nodes Examined: ??3 ?Number of Lymph Node(s) [...] stenosis > A Fib. Cardiology [place] [facility]. S/P successful cardioversion May 2018. [...] Medical Oncology - Breast & GI Cancers [facility] Pager - [phone] documented in this encounter Plan of Treatment Not on file documented as of this encounter Visit Diagnoses Diagnosis Malignant neoplasm of lower-outer quadrant of left breast of female, estrogen receptor positive documented in this encounter Care Teams Players Assistant Relationship Specialty Start Date End Date Ana Her MD [address] [place] [address] PCP - General 07/29/13 documented as of this encounter
--- OUTSIDE RECORDS SUMMARY | 2024-05-20 10:29 | XMS_ITS | Encounter Summary ---
Author Organization [facility] Address [facility] [place] [address] Care Team Providers Care Medicare Specialist Name Role Phone Ana Her MD Primary Care Provider [phone] Encounter Details Date Type Department Care Team (Late st Contact Info) Description 09/03/2021 Ancillary Procedure Radiology Library at [facility] [place] [address] Laura Will MD [facility] [place] [address] Social History Tobacco Use Types Packs/Day Years [...] CT Chest (09/03/2021 12:00 AM EDT) Narrative [facility] - 11/28/2021 1:22 PM EDT This exam is auto-finalizing. It's purpose is for storage only. Laura Will MD IMG FILM LIBRARY OR DERABLES Performing Organization Address City/State/[facility] Co de Phone Number [place], [place] documented in this encounter Visit Diagnoses Not on filedocumented in this encounter Care Teams Medicare Specialist Relationship Specialty Start Date End Date Ana Her MD [address] [facility] [address] [place] [address] PCP - General 07/29/13 documented as of this encounter
--- OUTSIDE RECORDS SUMMARY | 2024-05-20 10:29 | XMS_ITS | Encounter Summary ---
Author Organization [facility] [place] [address] Care Team Providers Care Alodize Machine Helper Name Role Phone Ana Her MD Primary Care Provider [phone] Encounter Details Date Type Department Care Team (Late st Contact Info) Description 04/23/2017 [place] [address] Marjorie Ariza Social History Tobacco Use Types [...] Marjorie Ariza - 04/23/2017 2:43 PM EST Employment Instructional Associate Hand Finisher met with pt after consultation with medical [...] on filedocumented in this encounter Care Teams Alodize Machine Helper Relationship Specialty Start Date End Date Ana Her MD [address] [facility] [place] [address] PCP - General 07/29/13 documented as of this encounter
--- OUTSIDE RECORDS SUMMARY | 2024-05-20 10:29 | XMS_ITS | Encounter Summary ---
[place] [address] Care Team Providers Care Front Desk Admin Name Role Phone Ana Her MD Primary Care Provider [phone] 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 * Consultation (Routine) - Closed Specialty Diagnoses / Procedures Referred By Christiano hackett Referred To Contact General Surgery Diagnoses Hiatal hernia Ana Her MD [address] [place] [address] [facility] [address] [place] [phone] Referral ID Status Reason Start Date Expiration Date V isits Requested Visits Authorized [id number] Closed Consult, Test & Treat 09/23/2021 09/23/2022 6 6 Encounter Details Date Type Department Care Team (Late st Contact Info) Description 09/23/2021 Transcribe Orders eDH Incoming Referrals [phone] Ana Her MD [address] [place] [address] Hiatal hernia Social History Tobacco [...] gangrene documented in this encounter Care Teams Front Desk Admin Relationship Specialty Start Date End Date Ana Her MD [address] [place] [address] PCP - General 07/29/13 documented as of this encounter
--- OUTSIDE RECORDS SUMMARY | 2024-05-20 10:29 | XMS_ITS | Encounter Summary ---
Author Organization [facility] [place] [address] Care Team Providers Care Airport Location Manager Name Role Phone Ana Her MD Primary Care Provider Encounter Details Date Type Department Care Team (Latest Contact Info) Description 06/11/2021 8:41 AM EST - 06/11/2021 11:59 PM [facility] Hospital Encounter Mammography/[place] [phone] Jeanine Lobato APRN [facility] [place] [address] Malignant neoplasm of lower-outer quadrant of left [...] Take 40 mg by mouth daily. omega 5-frx-anq-fish-turm salty 417 mg-120 mg- 276 mg-600 mg [...] who have questions please contact the health customer care associate that requested your imaging first. ? Jeanine Lobato ESTATE PLANNER IMG MAMMO ORD ERABLES documented in this encounter Visit Diagnoses Diagnosis Malignant neoplasm of lower-outer quadrant of left breast of female, estrogen receptor positive Breast cancer screening by mammogram documented in this encounter Care Teams Airport Location Manager Relationship Specialty Start Date End Date Ana Her MD [address] [place] [address] PCP - General 07/29/13 documented as of this encounter
--- OUTSIDE RECORDS SUMMARY | 2024-05-20 10:29 | XMS_ITS | Encounter Summary ---
Author Organization [facility] [place] [address] Care Team Providers Care Forms Builder Name Role Phone Ana Her MD Primary Care Provider Reason for Visit * Reason Comments Advice Only BBR * Consultation (Routine) - Closed Specialty Diagnoses / Procedures Referred By Christiano hackett Referred To Contact Plastic Surgery Diagnoses Malignant neoplasm of lower-outer quadrant of left breast of female, estrogen receptor positive Macromastia Jeanine Lobato APRN [facility] [place] [address] [facility]urg [address] [place] [address] Referral ID Status Reason Start Date Expiration Date V isits Requested Visits Authorized [id number] Closed Consult, Test & Treat 06/11/2021 06/11/2022 1 1 Encounter Details Date Type Department Care Team (Late st Contact Info) Description 07/09/2021 8:30 AM EST Office [place] [address] Med Hudson MD [facility] [place] [address] Macromastia Social History Tobacco Use [...] physical with your primary care doctor and Auto Servicer clearance Two Weeks prior to Surgery Do [...] Day of Surgery You will need a yard truck driver. If you do not have a yard truck driver, your surgery will be canceled. DO [...] pm) For an appointment or insurance questions [phone] For questions pertaining to your surgical date [phone] For nursing related questions [phone] On weekends, holidays or after office hours: Call and ask the acid recovery operator to page the Plastic Surgery Resident personal development mentor. documented in this encounter Progress Notes * [...] and was normal. This was performed at [facility]. She has completed a breast specific questionnaire: [...] the time Conservative Therapy Treatments: [facility] PLAST[facility] CONSERVATIVE THERAPY TREATMENTS 07/09/2021 Physical [...] surgery is best done at a realistic prison stable weight. We talked about the outpatient [...] revisions for scarring or asymmetry.) Garcia or [place] Pattern Incision: More scarring on breast, but [...] Timeframe: Elective Procedure: Bilateral breast reduction CPT: 67903 Surgical Technique: Garcia, Pedicle Surgical site: Breasts Side: Bilateral Anesthesia: General Follow up: 1 day for drain removal; 7-10 days for HCK PAT: H+P PCP, Cardiac clearance. Need to discontinue blood thinners pre-op? Xarelto documented in this encounter Plan of Treatment Not on file documented as of this encounter Visit Diagnoses Diagnosis Macromastia Hypertrophy of breast documented in this encounter Care Teams Forms Builder Relationship Specialty Start Date End Date Ana Her MD [address] [place] [address] PCP - General 07/29/13 documented as of this encounter
--- OUTSIDE RECORDS SUMMARY | 2024-05-20 10:29 | XMS_ITS | Encounter Summary ---
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 Procedures DXA Central-Spine, Hip, And/Or Whole Body (Generic) Ricky Lowry MD [facility] DR HEMATOLOGY/[place] [address] [facility] Rad Xray [address] [place] [address] [place] [address] Referral ID Status Reason Start Date Expiration Date V isits Requested Visits Authorized [id number] Closed Specialty Service Requested 05/10/2018 05/10/2019 1 1 Reason for Visit * Reason Comments Follow-up Encounter Details Date Type Department Care Team (Late st Contact Info) Description 05/10/2018 2:45 PM EST Office Visit Hematology and Oncology at [facility] [place] [address] Ricky Lowry MD Malignant neoplasm [...] ??Excision with image-guided localization ?Lymph Node Sampling: ??[place] lymph node(s) ?Specimen Laterality: ??Left Tumor ?Histologic [...] ??DCIS not present in specimen Lymph Nodes ?[place] Lymph Nodes: [place] lymph node biopsy performed ?Number of [place] Nodes Examined: ??3 ?Number of Lymph Node(s) [...] stenosis > A Fib. [facility]iology [place] [facility]. Most recent D[facility]A scan was last year at [facility]. There is no history of thromboembolic [...] is planned for later this week (at [facility] No new problems with VELEZ, diplopia, cough, [...] chemotherapy. TACHO. Renewal of anastrazole sent. Given [facility] brochure to share with cousins. All [...] BMD measurements and plots are available in [email or web address] under the imaging tab. Paper copies will be sent to providers without Converser access. If you have received this report without the data sheet and do not have access to Converser, please contact Radiology Chemical Equipment Repairer at [phone] Thursday thru Thursday 8am-4pm. Thank you for letting us participate in the care of this patient. For questions regarding this report, please contact the number below. ? Electronically signed by: Khushi Hughes [facility] ([phone]), at 11/10/2018 10:55 AM Narrative 11/10/2018 10:55 [...] a diagnostic region of interest: T-score: -1.0, LIELANI: Left femoral neck, WHO diagnosis: Normal bonemineral [...] BMD measurements and plots are available in LemonStand.under the imaging tab. Paper copies will be sent to providers without Converser access.If you have received this report without the data sheet and do not haveaccess to Converser, please contact Radiology Chemical Equipment Repairer at [phone] Thursday thruFriday 8am-4pm. Thank you for letting us participate in the care of this patient. Forquestions regarding this report, please contact the number below. 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
--- OUTSIDE RECORDS SUMMARY | 2024-05-20 10:29 | XMS_ITS | Encounter Summary ---
Author Organization [facility] [place] [address] Care Team Providers Care Etymology Teacher Name Role Phone Ana Her MD Primary Care Provider [phone] Reason for Visit * Consultation (Routine) - Closed Specialty Diagnoses / Procedures Referred By Christiano hackett Referred To Contact General Surgery Diagnoses Hiatal hernia Ana Her MD [address] [place] [address] [facility] Gen Surgery [address] [place] [address] Referral ID Status Reason Start Date Expiration Date V isits Requested Visits Authorized [id number] Closed Consult, Test & Treat 09/23/2021 09/23/2022 6 6 Encounter Details Date Type Department Care Team (Latest Contact Info) Description 12/05/2021 3:00 PM EDT Office [place] [address] Laura Will MD [facility] [place] [address] Paraesophageal hernia Social History Tobacco [...] of left breast of female, estrogen receptor [id number], Z17.0 ??? Anemia D64.9 ??? Aortic valve [...] gangrene documented in this encounter Care Teams Etymology Teacher Relationship Specialty Start Date End Date Ana Her MD [address] [place] [address] PCP - General 07/29/13 documented as of this encounter
--- OUTSIDE RECORDS SUMMARY | 2024-05-20 10:29 | XMS_ITS | Encounter Summary ---
Author Organization [facility] [place] [address] Care Team Providers Care Ventilation Equipment Tender Name Role Phone Ana Her MD Primary Care Provider [phone] Encounter Details Date Type Department Care Team (Latest Contact Info) Description 05/22/2020 10:46 AM EST - 05/22/2020 11:59 PM [facility] Hospital Encounter Mammography/[place] [phone] Jeanine Lobato APRN [facility] GENERAL [place] [address] Malignant neoplasm of lower-outer quadrant of left [...] mammogram documented in this encounter Care Teams Ventilation Equipment Tender Relationship Specialty Start Date End Date Ana Her MD [facility] [address] [facility] [address] [place] [address] PCP - General 07/29/13 documented as of this encounter
--- OUTSIDE RECORDS SUMMARY | 2024-05-20 10:29 | XMS_ITS | Encounter Summary ---
[place] [address] Care Team Providers Care Slot Machine Floor Person Name Role Phone Ana Her MD Primary Care Provider [phone] Reason for Visit * Reason Comments Follow-up Encounter Details Date Type Department Care Team (Late st Contact Info) Description 05/22/2020 11:40 AM EST Office [place] [address] Jeanine Lobato APRN [facility] [place] [address] Encounter for follow-up surveillance of breast cancer; [...] was obtained which revealed IDC which is ER/NV positive, Her2 negative. Alma Delia opted against [...] ??Excision with image-guided localization ?Lymph Node Sampling: ??[place] lymph node(s) ?Specimen Laterality: ??Left Tumor ?Histologic [...] ??DCIS not present in specimen Lymph Nodes ?[place] Lymph Nodes: [place] lymph node biopsy performed ?Number of [place] Nodes Examined: ??3 ?Number of Lymph Node(s) [...] herex- speak almost daily. [place] lives in [place] [...] situation. Results: Imaging performed (bilateral mammogram) at [facility] today shows no evidence of [...] available at [employer] ([employer]) and [employer]. All questions were answered to the patient's satisfaction and they state understanding and agreement with today's treatment plan. They are encouraged to follow up sooner if they develop any new or concerning symptoms. Jeanine Lobato APRN Surgical Oncology P [phone] F [phone] [facility] documented in this encounter [...] questions please contact the health home care consultant that requested your imaging first. ? Electronically signed by: Digna Noel MD, [facility] ([phone]), at 06/11/2021 9:20 AM Jeanine Lobato APRN [...] mammogram documented in this encounter Care Teams Slot Machine Floor Person Relationship Specialty Start Date End Date Ana Her MD [facility] [address] [place] [address] PCP - General 07/29/13 documented as of this encounter
--- OUTSIDE RECORDS SUMMARY | 2024-05-20 10:29 | XMS_ITS | Encounter Summary ---
Author Organization [facility] [place] [address] Care Team Providers Care Mineral Resources Inspector Name Role Phone Ana Her MD Primary Care Provider [phone] Reason for Visit * Reason Comments Follow-up Encounter Details Date Type Department Care Team (Late st Contact Info) Description 10/23/2017 11:00 AM EDT Office Visit Hematology [place] [address] Mayra Page APRN [facility] [place] [address] Malignant neoplasm of lower-outer quadrant of left [...] this encounter Progress Notes * Mayra Page, TIE TAMPER - 10/23/2017 11:00 AM EDT Digna Olson [...] ??Excision with image-guided localization ?Lymph Node Sampling: ??[place] lymph node(s) ?Specimen Laterality: ??Left Tumor ?Histologic [...] ??DCIS not present in specimen Lymph Nodes ?[place] Lymph Nodes: [place] lymph node biopsy performed ?Number of [place] Nodes Examined: ??3 ?Number of Lymph Node(s) Examined (sentinel and nonsentinel): 3 ?Lymph Node Involvement: None identified Stage (pTNM) ?Pathological Stage: ?? pT1b pN0 PMH: Past Medical History: Diagnosis Date ??? Breast cancer ??? Fracture of tibia 12/2016 left tibial plateau ??? GERD (gastroesophageal reflux disease) ??? H/O non-insulin dependent diabetes mellitus ??? Spinal stenosis Most recent DEXA scan was 10/28/16 at [facility]. There is [...] positive documented in this encounter Care Teams Mineral Resources Inspector Relationship Specialty Start Date End Date Ana Her MD [address] [place] [address] PCP - General 07/29/13 documented as of this encounter
--- OUTSIDE RECORDS SUMMARY | 2024-05-20 10:29 | XMS_ITS | Encounter Summary ---
[place] [address] Care Team Providers Care Auto Service Mechanic Name Role Phone Ana Her MD Primary Care Provider [phone] Encounter Details Date Type Department Care Team (Late st Contact Info) Description 04/09/2017 Abstract Radiation Oncology at [address] [phone] Maria A Antonio, RN Social History Tobacco [...] filedocumented in this encounter Care Teams Auto Service Mechanic Relationship Specialty Start Date End Date Ana Her MD [address] [place] [address] PCP - General 07/29/13 documented as of this encounter
--- OUTSIDE RECORDS SUMMARY | 2024-05-20 10:29 | XMS_ITS | Encounter Summary ---
[place] [address] Care Team Providers Care Learning And Development Coordinator Name Role Phone Ana Her MD Primary Care Provider [phone] Encounter Details Date Type Department Care Team (Late st Contact Info) Description 11/01/2021 Telephone [place] [address] Chelsie Lauren Social History Tobacco Use Types [...] on filedocumented in this encounter Care Teams Learning And Development Coordinator Relationship Specialty Start Date End Date Ana Her MD [address] [place] [address] PCP - General 07/29/13 documented as of this encounter
--- OUTSIDE RECORDS SUMMARY | 2024-05-20 10:29 | XMS_ITS | Encounter Summary ---
Author Organization [facility] [place] [address] Care Team Providers Care Network Systems Consultant Name Role Phone Ana Her MD Primary Care Provider [phone] Encounter Details Date Type Department Care Team (Late st Contact Info) Description 05/10/2018 1:10 PM EST - 05/10/2018 11:59 PM EST Hospital Encounter Mammography[place] [phone] Hiral Padgett, WENDY Encounter for screening mammogram [...] cancer documented in this encounter Care Teams Network Systems Consultant Relationship Specialty Start Date End Date Ana Her MD [address] [place] [address] PCP - General 07/29/13 documented as of this encounter
--- OUTSIDE RECORDS SUMMARY | 2024-05-20 10:29 | XMS_ITS | Encounter Summary ---
[place] [address] Care Team Providers Care Nurse Practitioner Physician Assistant Name Role Phone Ana Her MD Primary Care Provider [phone] Encounter Details Date Type Department Care Team (Late st Contact Info) Description 12/24/2021 Telephone [place] [address] Chelsie Lauren Social History Tobacco Use Types [...] on filedocumented in this encounter Care Teams Nurse Practitioner Physician Assistant Relationship Specialty Start Date End Date Ana Her MD [address] [place] [address] PCP - General 07/29/13 documented as of this encounter
--- OUTSIDE RECORDS SUMMARY | 2024-05-20 10:29 | XMS_ITS | Encounter Summary ---
[place] [address] Care Team Providers Care Town Justice Name Role Phone Ana Her MD Primary Care Provider [phone] Encounter Details Date Type Department Care Team (Late st Contact Info) Description 05/19/2017 Telephone Hematology [place] [phone] Sandy Chapman Social History Tobacco Use Types [...] on filedocumented in this encounter Care Teams Town Justice Relationship Specialty Start Date End Date Ana Her MD [address] [place] [address] PCP - General 07/29/13 documented as of this encounter
--- OUTSIDE RECORDS SUMMARY | 2024-05-20 10:29 | XMS_ITS | Encounter Summary ---
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 DR HEMATOLOGY/[place] [address] [facility] Rad Xray [address] [place] [address] [place] [address] Referral ID Status Reason Start Date Expiration Date V isits Requested Visits Authorized [id number] Closed Specialty Service Requested 05/22/2020 11/19/2021 1 1 Encounter Details Date Type Department Care Team (Late st Contact Info) Description 05/22/2020 1:15 PM EST Office Visit Hematology and Oncology at [facility], [place] [address] Ricky Lwory MD Malignant neoplasm of lower-outer quadrant of left breast of female, estrogen receptor positive; Osteopenia of neck of femur, unspecified laterality; longterm current use of aromatase inhibitor Social History [...] ??Excision with image-guided localization ?Lymph Node Sampling: ??[place] lymph node(s) ?Specimen Laterality: ??Left Tumor ?Histologic [...] ??DCIS not present in specimen Lymph Nodes ?[place] Lymph Nodes: [place] lymph node biopsy performed ?Number of [place] Nodes Examined: ??3 ?Number of Lymph Node(s) [...] Spinal stenosis > A Fib. Cardiology at [facility]. S/P successful cardioversion May 2018. DEXA scan [...] BMD measurements and plots are available in [employer] under the imaging tab. Paper copies will be sent to providers without [employer] access. If you have received this report without the data sheet and do not have access to [employer], please contact Radiology [facility] at [phone] Thursday thru Thursday 8am-4pm. Thank you for letting us participate in the care of this patient. ??If you are a health care provider and have any questions regarding this report, please contact the number below. ??For patients who have questions please contact the health hospice patient care secretary that requested your imaging [...] BMD measurements and plots are available in [employer] the imaging tab. Paper copies will be sent to providers without [employer] access.If you have received this report without the data sheet and do not haveaccess to [employer], please contact Radiology Director Of Social Media Marketing at [phone] Thursday thruFriday 8am-4pm. Thank you for letting us participate in the care of this patient. If youare a health care provider and have any questions regarding this report,please contact the number below. For patients who have questions please contactthe health hospice patient care secretary that requested your imaging first. Ricky Lowry MD IMG DEXA ORDERABLES documented in this encounter Visit Diagnoses Diagnosis Malignant neoplasm of lower-outer quadrant of left breast of female, estrogen receptor positive Osteopenia of neck of femur, unspecified laterality longterm current use of aromatase inhibitor Use of aromatase inhibitors Malignant neoplasm of lower-outer quadrant of left breast of female, estrogen receptor positive Osteopenia of neck of femur, unspecified laterality longterm current use of aromatase inhibitor Use of aromatase inhibitors documented in this encounter Care Teams Latex Ribbon Machine Operator Relationship Specialty Start Date End Date Ana Her MD [address] [place] [address] PCP - General 07/29/13 documented as of this encounter
--- OUTSIDE RECORDS SUMMARY | 2024-05-20 10:29 | XMS_ITS | Encounter Summary ---
[place] [address] Care Team Providers Care Campus Wellness Coordinator Name Role Phone Ana Her MD Primary Care Provider [phone] Encounter Details Date Type Department Care Team (Late st Contact Info) Description 02/04/2022 12:00 PM EDT Notes [place] [address] Social History Tobacco Use Types Packs/Day Years [...] on filedocumented in this encounter Care Teams Campus Wellness Coordinator Relationship Specialty Start Date End Date Ana Her MD [address] [place] [address] PCP - General 07/29/13 documented as of this encounter
--- OUTSIDE RECORDS SUMMARY | 2024-05-20 10:30 | XMS_ITS | Encounter Summary ---
[place] [address] Care Team Providers Care Chiropractic Neurologist Name Role Phone Ana Her MD Primary Care Provider [phone] Reason for Visit * Reason Comments Establish Care * Consultation (Routine) - Specialty Diagnoses / Procedures Referred By Christiano hackett Referred To Contact Hematology and Oncology Diagnoses Other abnormal and inconclusive findings on diagnostic imaging of breast abnormal mammo, left breast Jackie Cisneros, WENDY [address] [place] [address] [facility] [address] [place] [address] Referral ID Status Reason Start Date Expiration Date V isits Requested Visits Authorized [id number] Consult, Test & Treat Connection Center 02/17/2017 05/20/2017 6 6 Encounter Details Date Type Department Care Team (Late st Contact Info) Description 03/03/2017 9:00 AM EDT Office [place] [address] Malika Chen MD [facility] [place] [address] Argentina Sanchez, RN Malignant neoplasm [...] Exercises handout created by physical therapists at [facility] [place]. 7. Breast Cancer Treatment Process care map provided and reviewed. 8. Things to Consider...What I Wish I Knew advice from breast cancer patients handout provided. She verbalized understanding of the plan of care and states all her questions were answered. Twentyminutes was spent in education and providing support. Alma Delia has our contact information. She will call the copier technician to schedule surgery after she has [...] Alma Delia had a bone scan in [place] which was read as possible metastasis in the left tibia. Of note- she fractured this area recently. She has recovered well. PMH HNT NIDDM not on meds Spinal stenosis Fractured left tibial plateau December, GERD FH: Maternal first cousin with breast cancer Brother with rectal cancer Sister with PE SH: lives alone. Has good support from sisters who live in [place]. Non smoker. Has a son who lives [...] positive documented in this encounter Care Teams Chiropractic Neurologist Relationship Specialty Start Date End Date Ana Her MD [address] [place] [address] PCP - General 07/29/13 documented as of this encounter
--- OUTSIDE RECORDS SUMMARY | 2024-05-20 10:30 | XMS_ITS | Encounter Summary ---
[place] [address] Care Team Providers Care Central Station Operator Name Role Phone Ana Her MD Primary Care Provider [phone] 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 * Surgical (Routine) - Closed Specialty Diagnoses / Procedures Referred By Christiano hackett Referred To Contact Orthopaedics Diagnoses Lumbar spinal stenosis Michelle Hurtado APRN [facility] [place] [address] [facility] [address] [place] [address] Referral ID Status Reason Start Date Expiration Date V isits Requested Visits Authorized [id number] Closed Consult, Test & Treat 09/08/2014 09/08/2015 3 3 Encounter Details Date Type Department Care Team (Late st Contact Info) Description 09/08/2014 Orders [place] [address] Michelle Hurtado GRINDER MACHINE SETTER [facility] [place] [address] Lumbar spinal stenosis Social History Tobacco Use [...] claudication documented in this encounter Care Teams Central Station Operator Relationship Specialty Start Date End Date Ana Her MD [facility] [address] [facility] [address] [place] [address] PCP - General 07/29/13 documented as of this encounter
--- OUTSIDE RECORDS SUMMARY | 2024-05-20 10:30 | XMS_ITS | Encounter Summary ---
[place] [address] Care Team Providers Care Lace Machine Operator Name Role Phone Ana Her MD Primary Care Provider [phone] Encounter Details Date Type Department Care Team (Late st Contact Info) Description 07/26/2013 [place] [address] Ana Her MD [facility] [address] [place] [address] Social History Tobacco Use Types Packs/Day Years [...] is a Non-reportable exam Ana Her MD [facility] FILM LIBRARY ORD ERABLES documented in this encounter Visit Diagnoses Not on filedocumented in this encounter Care Teams Lace Machine Operator Relationship Specialty Start Date End Date Ana Her MD [address] [place] [address] PCP - General 07/29/13 documented as of this encounter
--- OUTSIDE RECORDS SUMMARY | 2024-05-20 10:30 | XMS_ITS | Encounter Summary ---
Author Organization [facility] [place] [address] Care Team Providers Care Ore Buyer Name Role Phone Ana Her MD Primary Care Provider [phone] Encounter Details Date Type Department Care Team (Latest Contact Info) Description 02/25/2017 2:59 PM EDT - 02/25/2017 11:59 PM EDT Hospital En[place] [address] Enzo Burkett MD Abnormal finding on breast [...] Report (02/25/2017 3:01 PM EDT) Final Diagnosis [id number] ? Location: 3L The signing pathologist has [...] FISH. ??Direct analysis was performed using the enrich-in Kit. ??Slide adequacy and signal enumeration were [...] factor receptor 2 testing in breast cancer: [place] Society of Clinical Oncology/College of [place] Pathologists clinical practice guideline update. J Clin Oncol. 2013 Nov . Reviewed by: Kyara Logan MD System Analyst, Molecular Pathology _ Electronically signed by: ??Epifanio Serra MD Verified: ??03/04/2017 ?Pathologist Performed at: ??-[facility] Dept. of Pathology, [place], [place] ? Addendum ADDENDUM DISCUSSION Immunohistochemist ry Studies Specimen: Left breast, core needle biopsy (A1) ER immunoreactivity: Positive ( ??>90% cancer cells with immunostaining) Stain intensity: Strong . ADDENDUM DISCUSSION IN immunoreactivity: Positive ( ??>90% cancer cells with [...] The assays were performed according to the town planner ' s instructions using Anti-ER (SP1) and Anti-IN (16) antibodies. Electronically signed by: ??Epifanio Serra MD Verified: ??02/27/2017 ?Pathologist Performed at: ??-[facility] Dept. 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 of Pathology, [place], [place] DISCUSSION Studies for ER, IN, and HER2 have been ordered; results will [...] g: (T4) ??elian 03/04/2017 2:01 PM EDT [facility] BREAST STRUCTURE / Unknown 02/25/2017 3:01 PM EDT 02/25/2017 3:01 PM EDT Enzo Burkett MD PATHOLOGY/CYTOLOGY O RDERABLES [facility] [place] [address] documented in this encounter Visit Diagnoses Diagnosis Abnormal finding on breast imaging Other (abnormal) findings on radiological examination of breast documented in this encounter Care Teams Ore Buyer Relationship Specialty Start Date End Date Ana Her MD [address] [place] [address] PCP - General 07/29/13 documented as of this encounter
--- OUTSIDE RECORDS SUMMARY | 2024-05-20 10:30 | XMS_ITS | Encounter Summary ---
Author Organization [facility] Address [facility] [place] [address] Care Team Providers Care Fisheries Inspector Name Role Phone Unavailable Primary Care Provider Unavailabl e Encounter Details Date Type Department Care Team (Latest Contact Info) Description 04/04/2005 - 04/04/2005 11:59 PM EST Hospital Encounter Radiology Library at [facility] ([place] [address] Jackie Cisneros APRN [facility] [place] [address] [place] [address] Discharge Disposition: Home Social History Tobacco Use [...]
--- OUTSIDE RECORDS SUMMARY | 2024-05-20 10:30 | XMS_ITS | Encounter Summary ---
Author Organization [facility] Address [address] [place] [address] Care Team Providers Care Soil Fertility Specialist Name Role Phone Unknown, Provider MD Primary Care Provider Unava ilable Encounter Details Date Type Department Care Team (Late st Contact Info) Description 04/06/2022 Lab Requisition [facility] Pathology & Laboratory Medicine - [facility] [address] [place] [address] Outr Resulting Lab, Provider Social History Tobacco [...] Salmonella PCR Negative Negative 04/06/2022 22:54 EST [facility] Shigella/Enteroin vasive E. coli Negative Negative 04/06/2022 22:54 EST [facility] HN LAB CAMPYLOBACTER PCR Negative Negative 04/06/2022 22:54 EST [facility] Shiga Toxin PCR Negative Negative 22:54 EST [facility] Feces SPECIMEN FROM RECTUM / Unknown 04/05/2022 10:41 EST 04/06/2022 18:31 EST us Provider Outr Resulting Lab MICROBIOLOGY - GENER AL ORDERABLES Final Result [facility] [address] [place] [address] documented in this encounter Visit Diagnoses Not on filedocumented in this encounter Care Teams Soil Fertility Specialist Relationship Specialty Start Date End Date Unknown, Provider, PCP - General 01/13/14 documented as of this encounter
--- OUTSIDE RECORDS SUMMARY | 2024-05-20 10:30 | XMS_ITS | Encounter Summary ---
Author Organization [facility] [place] [address] Care Team Providers Care Mgmt Specialist Name Role Phone Ana Her MD Primary Care Provider [phone] Encounter Details Date Type Department Care Team (Latest Contact Info) Description 02/25/2017 1:31 PM EDT Hospital [place] [address] Maryam Yee MD [facility] [place] [address] Abnormal mammogram Discharge Disposition: Home Social History [...] unspecified documented in this encounter Care Teams Mgmt Specialist Relationship Specialty Start Date End Date Ana Her MD [address] [place] [address] PCP - General 07/29/13 documented as of this encounter
--- OUTSIDE RECORDS SUMMARY | 2024-05-20 10:30 | XMS_ITS | Encounter Summary ---
Author Organization [facility] Address [address] [place] [address] Care Team Providers Care Plant Protection Officer Name Role Phone Unknown, Provider Primary Care Provider Unava ilable Encounter Details Date Type Department Care Team (Late st Contact Info) Description 11/19/2023 Lab Requisition [facility] Pathology & Laboratory Medicine - [facility] [address] [place], [place] [address] Outr Resulting Lab, Provider Social History Tobacco [...] 201 - 352 mg/dL 11/20/2023 9:45 EDT [facility] Blood VENOUS BLOOD / Unknown 11/19/2023 6:05 EDT 11/19/2023 17:32 EDT us Provider Outr Resulting Lab CHEMISTRY & BLOOD GA S ORDERABLES Final Result [facility] [address] [place], [place] [address] documented in this encounter Visit Diagnoses Not on filedocumented in this encounter Care Teams Plant Protection Officer Relationship Specialty Start Date End Date Unknown, Provider, PCP - General 01/13/14 documented as of this encounter
--- OUTSIDE RECORDS SUMMARY | 2024-05-20 10:30 | XMS_ITS | Encounter Summary ---
[place] [address] Care Team Providers Care Security System Technician Name Role Phone Ana Her MD Primary Care Provider [phone] Reason for Visit * Reason Comments Low Back Pain Encounter Details Date Type Department Care Team (Late st Contact Info) Description 08/30/2014 8:35 AM EDT Office [place] [address] Michelle Hurtado APRN [facility] [place] [address] Neurogenic claudication due to lumbar spinal stenosis [...] this encounter Progress Notes * Michelle Hurtado, AITCHBONE BREAKER - 08/30/2014 9:37 AM EDT CHIEF COMPLAINT: [...] activity. 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 MEDICATIONS & [...] care of this patient. Michelle Hurtado MS, AITCHBONE BREAKER, WASTEWATER ANALYST LAB ANALYST-C [facility] documented in this encounter Plan of Treatment Not on file documented as of this encounter Visit Diagnoses Diagnosis Neurogenic claudication due to lumbar spinal stenosis Spinal stenosis, lumbar region, with neurogenic claudication documented in this encounter Care Teams Security System Technician Relationship Specialty Start Date End Date Ana Her MD [address] [place] [address] PCP - General 07/29/13 documented as of this encounter
--- OUTSIDE RECORDS SUMMARY | 2024-05-20 10:30 | XMS_ITS | Encounter Summary ---
Author Organization [facility] Address [address] [place] [address] Care Team Providers Care Biomass Production Manager Name Role Phone Unavailable Primary Care Provider Unavailabl e Encounter Details Date Type Department Care Team (Latest Contact Info) Description 01/10/2014 20:50 EDT - 01/10/2014 23:59 EDT Hospital Encounter [facility] [address] [place] [address] Unknown, Provider, MD Discharge Disposition: Home or [...] Code Departure Means Destination Home or Self Snf documented in this encounter Plan of Treatment Not on file documented as of this encounter Visit Diagnoses Not on filedocumented in this encounter
--- OUTSIDE RECORDS SUMMARY | 2024-05-20 10:30 | XMS_ITS | Encounter Summary ---
[place] [address] Care Team Providers Care Seed Tester Name Role Phone Ana Her MD Primary Care Provider [phone] Reason for Visit * Reason Onset Date Comments Referral 07/29/2013 Encounter Details Date Type Department Care Team (Late st Contact Info) Description 07/29/2013 [place] [phone] Sophia Palacios Referral Social History Tobacco Use [...] on filedocumented in this encounter Care Teams Seed Tester Relationship Specialty Start Date End Date Ana Her MD [address] [facility] [address] [place] [address] PCP - General 07/29/13 documented as of this encounter
--- OUTSIDE RECORDS SUMMARY | 2024-05-20 10:30 | XMS_ITS | Encounter Summary ---
Author Organization [facility] Address [address] [place] [address] Care Team Providers Care Sieve Repairer Name Role Phone Unknown, Provider MD Primary Care Provider Unava ilable Encounter Details Date Type Department Care Team (Late st Contact Info) Description 08/12/2021 Lab Requisition [facility] Pathology & Laboratory Medicine - [facility] [address] [place] [address] Outr Resulting Lab, Provider Social History Tobacco [...] in this encounter Results * [facility] (08/12/2021 15:00 EDT) Swab 08/12/2021 15:0 0 EDT 08/13/2021 16:56 EDT us Provider Outr Resulting Lab MICROBIOLOGY - GENER AL ORDERABLES Final Result [facility] [address] [place] [address] * COVID-19 TESTING (08/12/2021 15:00 EDT) COVID-19 rt-PCR Result Negative Negative 08/14/2021 11:53 EDT [facility] Comment: This test has not [...] was performed using the palomo SARS-CoV-2 assay ([employer] on the Palomo 6800 System Performing Lab Palomo [address] [facility] Lab 08/14/2021 11:53 EDT [facility] Swab 08/12/2021 15:0 0 EDT 08/13/2021 16:56 EDT us Provider Outr Resulting Lab MICROBIOLOGY - GENER AL ORDERABLES Final Result [facility] [address] [place] [address] documented in this encounter Visit Diagnoses Not on filedocumented in this encounter Care Teams Sieve Repairer Relationship Specialty Start Date End Date Unknown, Provider, PCP - General 01/13/14 documented as of this encounter
--- OUTSIDE RECORDS SUMMARY | 2024-05-20 10:30 | XMS_ITS | Encounter Summary ---
[place] [address] Care Team Providers Care Transportation Maintenance Supervisor Name Role Phone Ana Her MD Primary Care Provider [phone] Encounter Details Date Type Department Care Team (Late st Contact Info) Description 03/30/2017 11:19 AM EST Anesthesia Event [place] [address] Bridgette Mclaughlin MD Collins, Sarah J, DECKHAND SHRIMP BOAT [address] [place] [address] Anesthesia Record Procedure Summary Procedure Name Responsible [...] 0815; median cubital vein (antecubital fossa), right; [id number] catheter system; 20 gauge, 1 in length; [...] Bridgette Mclaughlin - 03/30/2017 2:13 PM EST [facility] Department of Anesthesiology Post-procedure Note Patient: Digna Olson Procedure Summary Date Anesthesia Start Anesthesia Stop Room / Location 03/30/17 1119 1239 [facility] OR 24 / MH MAIN OR [...] All Anesthesia Providers: Anesthesiologist: Bridgette Mclaughlin MD [employer] SHRIMP [employer]AT: Laura Koo CRNA Most Recent Vitals: 03/30/17 [...] risks discussed with patient. Plan discussed with [employer]. [facility] Staff Note documented in this [...] r documented in this encounter Care Teams Transportation Maintenance Supervisor Relationship Specialty Start Date End Date Ana Her MD [facility] [address] [place] [address] PCP - General 07/29/13 documented as of this encounter
--- OUTSIDE RECORDS SUMMARY | 2024-05-20 10:30 | XMS_ITS | Encounter Summary ---
[place] [address] Care Team Providers Care Soft Work Wrapper Examiner Name Role Phone Ana Her MD Primary Care Provider [phone] Encounter Details Date Type Department Care Team (Latest Contact Info) Description 03/03/2017 7:55 AM EDT Laboratory Appointment Lab [address] [place] [address] Malignant neoplasm of left breast in female, [...] 7:50 AM EDT) Neutrophil % 72.8 % [facility] Neutrophil Absolute 6.45(H) 1.70 - 6.10 x10(3)/mc L [facility] Lymph % 14.4 % [facility] Lymphocytes Abs 1.3 0.9 - 3.2 x10(3)/ L [facility] Monocyte % 5.6 % [facility] Monocyte Abs 0.5 0.3 - 0.9 x10(3)/ L [facility] Eos % 6.1 % [facility] Eosinophils Abs 0.5(H) 0.0 - 0.4 x10(3)/ L [facility] Basophil % 0.6 % [facility] Baso Absolute 0.0 0.0 - 0.1 x10(3)/ L [facility] Immature Gran % 0.50 % [facility] Comment: Immature granulocytes(IG's)percentage and absolute count will include metamyelocytes, myelocytes, and promyelocytes. Blood smears from CBCs yielding IG's will be scanned manually for concordance. If this scan disagrees with the automated IG or if promyelocytes are noted, a manual differential will be performed. Immature Gran Absolute 0.04 0.00 - 0.04 x10(3)/mc L [facility] Blood specimen (specimen) 03/03/2017 7:50 AM EDT 03/03/2017 8:03 AM EDT Narrative Resulting Agency Comment Spec In Lab Malika Chen MD HEMATOLOGY ORDERABL ES [facility] [place] [address] * (ABNORMAL) Hemogram (03/03/2017 7:50 AM EDT) White Blood Cell 8.8 4.0 - 9.5 x10(3)/mc L [facility] Red Blood Cell 3.80(L) 4.00 - 5.21 x10(6)/mc L [facility] Hemoglobin 12.3 11.7 - 15.5 gm/dL [facility] Hematocrit 36.3 35.7 - 45.8 % [facility] Mean Cell Volume 95.5(H) 82.6 - 94.4 fL [facility] Mean Cell Hemoglobin 32.4(H) 27.1 - 32.0 pg [facility] Mean Cell Hemoglobin Concentration 33.9 31.7 - 35.0 gm/dL [facility] Platelet 156 145 - 357 x10(3)/ L [facility] RDW Standard Deviation 48.3(H) 37.0 - 46.0 [facility] RDW coefficient of variation 13.9 11.5 - 14.1 % [facility] Mean Platelet Volume 11.9 7.6 - 12.9 fL [facility] NRBC% auto 0.0 % [facility] NRBC Absolute 0.000 0.000 - 0.000 x10(3)/ L [facility] Blood specimen (specimen) 03/03/2017 7:50 AM EDT 03/03/2017 8:03 AM EDT Narrative Resulting Agency Comment Spec In Lab Malika Chen MD HEMATOLOGY ORDERABL ES [facility] [place] [address] * (ABNORMAL) Comprehensive metabolic panel (non-fasting) (03/03/2017 7:50 AM EDT) Glucose 139 65 - 199 mg/dL [facility] Comment:Diabetes: >=200 mg/d L plus symptoms Blood Urea Nitrogen 20(H) 8 - 18 mg/dL [facility] [...] - 107 mmol/L [facility] Carbon Dioxide 26 22 - 31 mmol/L [facility] Anion Gap 14 5 - 15 mmol/L [facility] Calcium 9.3 8.5 - 10.5 mg/dL [facility] Protein, Total 6.9 6.1 - 8.0 gm/dL [facility] Albumin 4.2 3.2 - 5.2 gm/dL [facility] Aspartate Aminotransferase 17 0 - 30 unit/L [facility] Alanine Aminotransferase 16 0 - 30 unit/L [facility] Alkaline Phosphatase 75 40 - 104 unit/L [facility] Bilirubin, Total 0.5 0.2 - 1.3 mg/dL [facility] Est Glomerular Filtration Rate 58(L) >=60 [facility] Comment: The reported eGFR should be multiplied by 1.2 for patients. The MDRD is not an appropriate measure of renal function for patients with body mass extremes or in patients with acute kidney failure. http://[employer]pper/DHnkdep http://[employer].com/DHMCnkf Blood specimen (specimen) 03/03/2017 7:50 AM EDT 03/03/2017 8:03 AM EDT Narrative Resulting Agency Comment Spec In Lab Malika Chen MD [place] [address] documented in this encounter Visit Diagnoses Diagnosis Malignant neoplasm of left breast in female, estrogen receptor positive, unspecified site of breast documented in this encounter Care Teams Soft Work Wrapper Examiner Relationship Specialty Start Date End Date Ana Her MD [address] [place] [address] PCP - General 07/29/13 documented as of this encounter
--- OUTSIDE RECORDS SUMMARY | 2024-05-20 10:30 | XMS_ITS | Encounter Summary ---
[place] [address] Care Team Providers Care Collection Advisor Name Role Phone Ana Her MD Primary Care Provider [phone] Encounter Details Date Type Department Care Team (Latest Contact Info) Description 03/30/2017 7:27 AM EST - 03/30/2017 1:37 PM EST Hospital Encounter [place] [id number] Brant Chen MD [facility] [place] [address] Discharge Disposition: Home Social History Tobacco Use [...] shower 24 hours Activity as tolerated Call [phone] with any questions Do not soak incision [...] Alma Delia had a bone scan in [place] which was read as possible metastasis in the left tibia. Of note- she fractured this area recently. She has recovered well. ?? PMH HNT NIDDM not on meds Spinal stenosis Fractured left tibial plateau December, GERD ?? FH: Maternal first cousin with breast cancer Brother with rectal cancer Sister with PE ? SH: lives alone. Has good support from sisters who live in [place]. Non smoker. Has a son who lives [...] Chen MD - 03/30/2017 12:27 PM EST [facility] Operative Note Patient Name: Digna Olson : [id number] MR#: [id number] Case Date: 03/30/2017 Surgeon: Surgeon(s) and Role: [...] [place] [address]. Remaining count within the axilla was 1982. [...] Chen MD PATHOLOGY/CYTOLOGY ORDERABLES [facility] [place] [address] * Specimen to Pathology (surgical or derm) (03/30/2017 12:08 PM EST) AP Specimen 03/30/2017 12:0 8 PM EST 03/30/2017 12:08 PM EST Narrative [facility] - 03/30/2017 12:08 PM EST Specimen requisition ordered. ??Separate Pathology report to follow Brant Chen MD PATHOLOGY/CYTOLOGY ORDERABLES Performing Organization Address [facility] [place] [address] * Specimen to Pathology (surgical or derm) (03/30/2017 12:00 PM EST) AP Specimen 03/30/2017 12:0 0 PM EST 03/30/2017 12:00 PM EST Narrative [facility] - 03/30/2017 12:00 PM EST Specimen requisition ordered. ??Separate Pathology report to follow Brant Chen MD PATHOLOGY/CYTOLOGY ORDERABLES Performing Organization Address [facility] Co de Phone Number [place] [phone] * Specimen to Pathology (surgical or derm) (03/30/2017 11:51 AM EST) AP Specimen 03/30/2017 11:5 1 AM EST 03/30/2017 11:51 AM EST Narrative [facility] - 03/30/2017 11:51 AM EST Specimen requisition ordered. ??Separate Pathology report to follow Brant Chen MD PATHOLOGY/CYTOLOGY ORDERABLES Performing Organization Address [facility] [place] [address] * Surgical Pathology Report (03/30/2017 11:50 AM EST) Final Diagnosis [id number] ? Location: [facility]; [facility]; A The signing pathologist has (i) examined the relevant preparation(s) for the specimen(s) and (ii) rendered or confirmed the diagnosis(es). . ?Surgical Pathology DIAGNOSIS A,B - See Synoptic C - Left breast, Deep/lateral margin re-excision - ?Benign fatty breast tissue. D - Left breast, Superficial margin re-excision - ?Benign fatty breast tissue. See Note Note - Holland ink (indicating additional cranial margin) is also present on this superficial margin re-excision. ---- Specimen Parts: ?? A - Left axilliary sentinel node B - Left breast partial mastectomy Specimen ? Procedure: ??Excision with image-guided localization ? Lymph Node Sampling: ?? [place] lymph node(s) ? Specimen Laterality: ?? Left [...] not present in specimen Lymph Nodes ? [place] Lymph Nodes: ?? [place] lymph node biopsy performed ? Number of [place] Nodes Examined: ?3 ? Number of Lymph [...] Chávez DO Verified: ??04/01/2017 ?Pathologist Performed at: ??-[facility] Dept. of Pathology, [place], [place] CLINICAL INFORMATION Specimen Submitted: A - [...] and there are ??no close margins. per [facility] Radiology . Specimen Description: According [...] 0.8 x 0.4 x 0.4 cm. Color: [place] and yellow. Consistency: Soft. Location: Slices III and IV. Nearest Margin: 0.6 cm to the cranial margin. Other Margins: 0.8 cm to the deep margin, 1.0 cm to the superficial margin, ? > 2 cm from all other margins. OTHER Parenchyma: Predominately fatty with scant fibrous tissue. Wire/Clip: Biopsy marker clip identified within slice IV. SECTIONS/PROCESSI NG: (1) account executive sales representative slice I, lateral margin; (2) slice III, lesion to cranial margin; (3-5) remainder of slice III; (6) slice IV, lesion to cranial margin (clip); (7-8) remainder of slice IV; (9) account executive sales representative slice V; (10) account executive sales representative slice X, medial margin. (R10) [...] Chen MD PATHOLOGY/CYTOLOGY ORDERABLES [facility] [place] [address] * Mammo Direct Digital Left (03/30/2017 9:15 [...] Routine documented in this encounter Care Teams Collection Advisor Relationship Specialty Start Date End Date Ana Her MD [address] [place] [address] PCP - General 07/29/13 documented as of this encounter
--- OUTSIDE RECORDS SUMMARY | 2024-05-20 10:30 | XMS_ITS | Encounter Summary ---
Author Organization [facility] [place] [address] Care Team Providers Care Recycling Center Operator Name Role Phone Ana Her MD Primary Care Provider [phone] Encounter Details Date Type Department Care Team (Latest Contact Info) Description 03/30/2017 8:30 AM [facility] Hospital En[place] [address] Malika Chen MD [facility] [place] [address] Malignant neoplasm of upper-outer quadrant of left [...] documented in this encounter Results * Mammo [place] Node Injection (03/30/2017 9:01 AM EST) Anatomical [...] mCi documented in this encounter Care Teams Recycling Center Operator Relationship Specialty Start Date End Date Ana Her MD [address] [place] [address] PCP - General 07/29/13 documented as of this encounter
--- OUTSIDE RECORDS SUMMARY | 2024-05-20 10:30 | XMS_ITS | Encounter Summary ---
Author Organization [facility] Address [facility] [place] [address] Care Team Providers Care Compound Worker Name Role Phone Unavailable Primary Care Provider Unavailabl e Encounter Details Date Type Department Care Team (Latest Contact Info) Description 12/25/2010 - 12/25/2010 11:59 PM EDT Hospital Encounter Radiology Library [place] [address] Jackie Cisneros APRN [facility] [place] [address] [place] [address] Discharge Disposition: Home Social History Tobacco Use [...] Only Mammo (12/25/2010 12:00 AM EDT) Narrative [facility] - 02/23/2017 3:27 PM EDT This exam is for storage only and is auto-finalizing. Jackie Cisneros APRN IMG FILM LIBRARY ORD ERABLES NADINE Sethi documented in this encounter Visit Diagnoses Not on filedocumented in this encounter
--- OUTSIDE RECORDS SUMMARY | 2024-05-20 10:30 | XMS_ITS | Encounter Summary ---
Author Organization [facility] Address [facility] [place] [address] Care Team Providers Care Manager Club Name Role Phone Ana Her MD Primary Care Provider [phone] Encounter Details Date Type Department Care Team (Latest Contact Info) Description 10/28/2016 - 10/28/2016 11:59 PM EDT Hospital Encounter Radiology Library [place] [facility] [place] [address] Ricky Lowry MD Discharge Disposition: Home Social [...] Images (10/28/2016 12:00 AM EDT) Narrative [facility] - 04/24/2017 2:13 PM EST This exam is for storage only and is auto-finalizing. Ricky Lowry MD IMG FILM LIBRARY ORD ERABLES Performing Organization Address City/State/[facility] Co de Phone Number [place], [place] documented in this encounter Visit Diagnoses Not on filedocumented in this encounter Care Teams Manager Club Relationship Specialty Start Date End Date Ana Her MD [address] [place] [address] PCP - General 07/29/13 documented as of this encounter
--- OUTSIDE RECORDS SUMMARY | 2024-05-20 10:30 | XMS_ITS | Encounter Summary ---
Author Organization [facility] Address [address] [place] [address] Care Team Providers Care Asbestos Remover Name Role Phone Unknown, Provider Primary Care Provider Unava ilable Encounter Details Date Type Department Care Team (Late st Contact Info) Description 01/20/2020 Lab Requisition [facility] Pathology & Laboratory Medicine - [facility] [address] [place] [address] Outr Resulting Lab, Provider Social History Tobacco [...] rt-PCR Result NEGATIVE Negative 01/21/2020 16:10 EDT [facility] Comment: 2019-novel Coronavirus (2019-nCoV) not [...] in accordance with CLIA regulations, College [employer] [place] [employer]ologists (CAP) guidelines (Jul 21, 2019), and FDA guidance (Jul 02, 2019). This test is only for use under the Food and Drug Administration's Emergency Use Authorization. Swab ENTIRE NASOPHARYNX / Unknown 01/20/2020 10:30 EDT 01/20/2020 15:35 EDT us Provider Outr Resulting Lab MICROBIOLOGY - GENER AL ORDERABLES Final Result Performing Organization Address City/State/[facility] [[email or web address]] Co de Phone Number [facility] [place] * COVID-19 TESTING (01/20/2020 10:30 EDT) COVID-19 rt-PCR Result NEGATIVE Negative 01/21/2020 17:21 EDT [facility] Comment: 2019-novel Coronavirus (2019-nCoV) [...] in accordance with CLIA regulations, College of [place] Pathologists (CAP) guidelines (Jul 21, 2019), and FDA guidance (Jul 02, 2019). This test is only for use under the Food and Drug Administration's Emergency Use Authorization. Performing Lab [facility] 01/21/2020 17:21 EDT [facility] Swab 01/20/2020 10:3 0 EDT 01/20/2020 15:35 EDT us Provider Outr Resulting Lab MICROBIOLOGY - GENER AL ORDERABLES Final Result [facility] [address] [place] [address] [facility] [place] [place] documented in this encounter Visit Diagnoses Not on filedocumented in this encounter Care Teams Asbestos Remover Relationship Specialty Start Date End Date Unknown, Provider, PCP - General 01/13/14 documented as of this encounter
--- OUTSIDE RECORDS SUMMARY | 2024-05-20 10:30 | XMS_ITS | Encounter Summary ---
Author Organization [facility] Address [facility] [place] [address] Care Team Providers Care Cleat Thrower Name Role Phone Unavailable Primary Care Provider Unavailabl e Encounter Details Date Type Department Care Team (Latest Contact Info) Description 12/08/2008 - 12/08/2008 11:59 PM EDT Hospital Encounter Radiology Library [place] [facility] [place] [address] Jackie Cisneros APRN [facility] [place] [address] Discharge Disposition: Home Social History Tobacco Use [...] AM EDT) Narrative [facility] - 02/23/2017 3:30 PM EDT This exam is for storage only and is auto-finalizing. Jackie Cisneros APRN IMG FILM LIBRARY ORD ERABLES NADINE Sethi documented in this encounter Visit Diagnoses Not on filedocumented in this encounter
--- OUTSIDE RECORDS SUMMARY | 2024-05-20 10:30 | XMS_ITS | Clinical Summary ---
Author Organization [facility] Address [address] [place] [address] Care Team Providers Care Nutrition Director Name Role Phone Unknown, Provider MD [...] COVID-19 Vaccine (2023- season) 2024 Care Teams Nutrition Director Relationship Specialty Start Date End Date Unknown, Provider, PCP - General 01/13/14
--- OUTSIDE RECORDS SUMMARY | 2024-05-20 10:30 | XMS_ITS | Encounter Summary ---
[place] [address] Care Team Providers Care Tip Mender Name Role Phone Ana Her MD Primary Care Provider [phone] Reason for Visit * Reason Comments Low Back Pain Bilateral Hip Pain when standing or wal jaquelin Encounter Details Date Type Department Care Team (Late st Contact Info) Description 09/12/2014 11:20 AM EDT Office [place] [phone] Kris Benoit MD Neurogenic claudication due to [...] free. Lumbar MRI from 08/16/2014 from [facility] is notable for multilevel degenerative changes L2-L3, L3-L4, L4-L5, L5-S1. At L2-L3, she has [id number] spinal stenosis, but she has no leg [...] claudication documented in this encounter Care Teams Tip Mender Relationship Specialty Start Date End Date Ana Her MD [address] [place] [address] PCP - General 07/29/13 documented as of this encounter
--- OUTSIDE RECORDS SUMMARY | 2024-05-20 10:30 | XMS_ITS | Encounter Summary ---
Author Organization [facility] Address [facility] [place] [address] Care Team Providers Care Chemical Engineering Professor Name Role Phone Unavailable Primary Care Provider Unavailabl e Encounter Details Date Type Department Care Team (Latest Contact Info) Description 12/19/2009 - 12/19/2009 11:59 PM EDT Hospital Encounter Radiology Library [place] [facility] [place] [address] Jackie Cisneros APRN [facility] [place] [address] Discharge Disposition: Home Social History Tobacco Use [...] Only Mammo (12/19/2009 12:00 AM EDT) Narrative [facility] - 02/23/2017 3:29 PM EDT This exam is for storage only and is auto-finalizing. Jackie Cisneros APRN IMG FILM LIBRARY ORD ERABLES NADINE Sethi documented in this encounter Visit Diagnoses Not on filedocumented in this encounter
--- OUTSIDE RECORDS SUMMARY | 2024-05-20 10:30 | XMS_ITS | Encounter Summary ---
Author Organization [facility] Address [place] [address] Care Team Providers Care Portable Router Operator Name Role Phone Ana Her MD Primary Care Provider [phone] Encounter Details Date Type Department Care Team (Latest Contact Info) Description 02/23/2017 3:50 PM EDT - 02/23/2017 11:59 PM EDT Hospital Encounter Radiology Library at [facility] [place] [address] Jackie Cisneros APRN [address] [place] [address] Left breast mass Discharge Disposition: Home Social [...] recommended. Please note: The interpretation of the [facility] Breast Imaging Radiologist subspecialist may differ from the original radiologists interpretation. This is usually not due to a deficiency of the original interpreting radiologist, rather due to the greater skill level afforded by sub-specialization in the field and/or reasonable variations in interpretations. If you have a concern regarding the D-H interpretation you may contact the [facility] Breast Alarm Investigator Office at . I have personally reviewed [...] recommended. Please note: The interpretation of the [facility] BreastImaging Radiologist subspecialist may differ from the original radiologists interpretation. This is usually not due to a deficiency of the original interpreting radiologist, rather due to the greater skill level affordedby sub-specialization in the field and/or reasonable variations ininterpretations. If you have a concern regarding the D-H interpretation you may [facility] at . I have personally reviewed the image(s) and the residents interpretationand agree with the findings, ROBERT THOMPSON at 02/24/2017 8:41 AM 8:41 AM Jackie Cisneros WENDY IMG OUTSIDE INTERPRE TATION ORDERABLES documented in this encounter Visit Diagnoses Diagnosis Left breast mass Lump or mass in breast documented in this encounter Care Teams Portable Router Operator Relationship Specialty Start Date End Date Ana Her MD [address] [place] [address] PCP - General 07/29/13 documented as of this encounter
--- OUTSIDE RECORDS SUMMARY | 2024-05-20 10:30 | XMS_ITS | Encounter Summary ---
Author Organization [facility] [place] [address] Care Team Providers Care Inventory Administrator Name Role Phone Ana Her MD Primary Care Provider [phone] Encounter Details Date Type Department Care Team (Late st Contact Info) Description 03/19/2017 Telephone [place] [address] Malika Chen MD [facility] [place] [address] Social History Tobacco Use Types Packs/Day Years [...] no unexpected bleeding. Surgery is scheduled in [facility]. documented in this encounter Plan of Treatment Not on file documented as of this encounter Visit Diagnoses Not on filedocumented in this encounter Care Teams Inventory Administrator Relationship Specialty Start Date End Date Ana Her MD [address] [facility] [address] [place] [address] PCP - General 07/29/13 documented as of this encounter
--- OUTSIDE RECORDS SUMMARY | 2024-05-20 10:30 | XMS_ITS | Encounter Summary ---
Author Organization [facility] Address [facility] [place] [address] Care Team Providers Care Manager Family Name Role Phone Ana Her MD Primary Care Provider [phone] Encounter Details Date Type Department Care Team (Latest Contact Info) Description 02/17/2017 - 02/17/2017 12:14 AM EDT Hospital Encounter Radiology Library at [facility] [place] [address] Maryam Yee MD [facility] [place] [address] Screening breast examination Discharge Disposition: Home Social [...] FILM LIBRARY O RDERABLES Performing Organization Address City/State/[facility] Co de Phone Number [place], [place] documented in this encounter Visit Diagnoses Diagnosis Screening breast examination Other screening breast examination documented in this encounter Care Teams Manager Family Relationship Specialty Start Date End Date Ana Her MD [address] [place] [address] PCP - General 07/29/13 documented as of this encounter
--- OUTSIDE RECORDS SUMMARY | 2024-05-20 10:30 | XMS_ITS | Encounter Summary ---
Author Organization [facility] Address [facility] [place] [address] Care Team Providers Care Lead Manufacturing Technician Name Role Phone Ana Her MD Primary Care Provider [phone] Encounter Details Date Type Department Care Team (Late st Contact Info) Description 09/13/2015 Interpretation Only Radiology [address] [place] [address] Unknown None Social History Tobacco Use Types [...] 6:56 AM EDT APD Historical Result Principal Product Manager E Commerce: ??MAE ??ESCHBACH IMAGE-INTENSIFIER FILMS: INDICATION: ??Right L4 foraminotomy. FINDINGS: A total of 5.8 seconds of fluoro time was utilized by Geraldine Claros MD. ??Estimated dose is 5.96 mGy. ??Two image-intensifier films record the event. ??They show the lumbosacral junction in the lateral projection with a surgical instrument indicating the level of L4. ??No Radiologist was present for this exam. Mae Shelley DO TOBIN/mn [id number] Procedure Note Unknown - 11/01/2018 APD Historical Result Principal Product Manager E Commerce: MAE SHELLEY IMAGE-INTENSIFIER FILMS: INDICATION: Right L4 foraminotomy. FINDINGS: A total of 5.8 seconds of fluoro time was utilized by Geraldine Claros MD. Estimated dose is 5.96 mGy. Two image-intensifier films record the event. They show thelumbosacral junction in the lateral projection with a surgical instrument indicating the level of L4.No Radiologist was present for this exam. Mae Shelley DO TOBIN/mn [id number] Unknown IMG FLUORO ORDERABLE S documented in this encounter Visit Diagnoses Not on filedocumented in this encounter Care Teams Lead Manufacturing Technician Relationship Specialty Start Date End Date Ana Her MD [address] [place] [address] PCP - General 07/29/13 documented as of this encounter
--- OUTSIDE RECORDS SUMMARY | 2024-05-20 10:30 | XMS_ITS | Encounter Summary ---
[place] [address] Care Team Providers Care Igniter Capper Name Role Phone Ana Her MD Primary Care Provider [phone] Encounter Details Date Type Department Care Team (Late st Contact Info) Description 03/18/2017 Telephone [place] [phone] Bryanna Marsh RN Social History Tobacco Use [...] notes she had a colonoscopy done at [facility] and developed atrial fibrillation; she has been started on blood thinners. She was just discharged from the [facility] hospital, and called us to let [...] give Digna a call her number is [phone]. The below is from Dr. Chen visit with Digna. Assessment and Plan: ?? 71 yo female with radiographic stage I ER/MD+, HER2- IDC of the left breast. No [...] on filedocumented in this encounter Care Teams Igniter Capper Relationship Specialty Start Date End Date Ana Her MD [address] [place] [address] PCP - General 07/29/13 documented as of this encounter
--- OUTSIDE RECORDS SUMMARY | 2024-05-20 10:30 | XMS_ITS | Encounter Summary ---
Author Organization [facility] Address [address] [place] [address] Care Team Providers Care Math And Science Instructor Name Role Phone Unknown, Provider Primary Care Provider Unava ilable Encounter Details Date Type Department Care Team (Late st Contact Info) Description 03/17/2017 Results Only [facility] [phone] Kat Lazaro MD [facility] [address] [place], [place] [id number] Social History Tobacco Use Types Packs/Day Years [...] ? DIGNA KIMBROUGH ? Accession #: ? [id number] ? : ? 1945 (Age: 71) ??F [...] (ASCP) 03/18/2017 8:14 AM End of Report [facility] 03/17/2017 16:1 5 EST 03/17/2017 16:15 EST us Kat Lazaro MD PATHOLOGY ORDERABLES Fin al Result [facility] [address] [place] [address] documented in this encounter Visit Diagnoses Not on filedocumented in this encounter Care Teams Math And Science Instructor Relationship Specialty Start Date End Date Unknown, Provider, PCP - General 01/13/14 documented as of this encounter
--- OUTSIDE RECORDS SUMMARY | 2024-05-20 10:30 | XMS_ITS | Encounter Summary ---
Author Organization [facility] Address [facility] [place] [address] Care Team Providers Care Manager Of Case Name Role Phone Unavailable Primary Care Provider Unavailabl e Encounter Details Date Type Department Care Team (Latest Contact Info) Description 03/19/2006 - 03/19/2006 11:59 PM EST Hospital Encounter Radiology Library [place] [address] Jackie Cisneros APRN [facility] [place] [place] [address] Discharge Disposition: Home Social History Tobacco Use [...]
--- OUTSIDE RECORDS SUMMARY | 2024-05-20 10:30 | XMS_ITS | Encounter Summary ---
Author Organization [facility] [place] [address] Care Team Providers Care Garden Center Manager Name Role Phone Ana Her MD Primary Care Provider [phone] Encounter Details Date Type Department Care Team (Late st Contact Info) Description 08/16/2014 Orders Only Functional [facility]ast[facility] Program at [facility] [address] [place] [address] Khari Martínez MD Social History Tobacco Use [...] on filedocumented in this encounter Care Teams Garden Center Manager Relationship Specialty Start Date End Date Ana Her MD [facility] [address] [facility] [address] [place] [address] PCP - General 07/29/13 documented as of this encounter
--- OUTSIDE RECORDS SUMMARY | 2024-05-20 10:30 | XMS_ITS | Encounter Summary ---
Author Organization [facility] [place] [address] Care Team Providers Care Candy Spreader Name Role Phone Ana Her MD Primary Care Provider [phone] Encounter Details Date Type Department Care Team (Late st Contact Info) Description 03/03/2017 Notes [place] [address] January Ward MSW Social History Tobacco Use Types Packs/Day Years Used Date Smoking Tobacco: Never Smokeless Tobacco: Never Sex and Gender Information Value Date Recorded Sex Assigned at Not on file Gender Identity Not on file Sexual Orientation Not on file documented as of this encounter Progress Notes * January Ward MSW - 03/03/2017 12:56 PM EDT OFFICE OF CARE MANAGEMENT/CONTINUING COOK BOX FILLER Reason for referral: Digna Olson is a 71 year old, female who was seen in the multidisciplinarybreast care clinic for a surgical consult as she was recently diagnosed with ER/SD+, left breast, invasive mucinous carcinoma. After meeting with Dr. Chen, pt has decided to have a lumpectomy/SLNB. If pt needs radiation therapy, she will receive it at the [facility]. [facility] met with pt to complete a psychosocial assessment and to explain my role in the breast program. Pt was encouraged to contact me if she has any questions or concerns. Living arrangements/social supports: Pt lives alone in [place], [place]. She has support from her family and is accompanied to today's appt by her sisters who live in [place]. Employment/Insurance/Finances: Pt is retired and receives Social Security Residential Benefits. Pt has Medicare A and B [...] Antonia Oliva is the SW for the [facility]. Plan: [facility] will continue to follow pt to assess and assist with their psychosocial needs. DELONTE [facility]/[place] [phone] Pager #[phone] documented in this encounter Plan of Treatment Not on file documented as of this encounter Visit Diagnoses Not on filedocumented in this encounter Care Teams Candy Spreader Relationship Specialty Start Date End Date Ana Her MD [address] [place] [address] PCP - General 07/29/13 documented as of this encounter
--- OUTSIDE RECORDS SUMMARY | 2024-05-20 10:30 | XMS_ITS | Encounter Summary ---
Author Organization [facility] [place] [address] Care Team Providers Care Residential Sales Consultant Name Role Phone Ana Her MD Primary Care Provider [phone] Encounter Details Date Type Department Care Team (Latest Contact Info) Description 02/25/2017 1:32 PM EDT - 02/25/2017 1:35 PM EDT Hospital En[place] [phone] Maryam Yee MD [facility] [place] [address] Abnormal mammogram Discharge Disposition: Home Social History [...] PM EDT 02/25/2017 3:02 PM EDT Narrative [facility] - 02/25/2017 3:02 PM EDT Specimen requisition ordered. ??Separate Pathology report to follow Enzo Burkett MD PATHOLOGY/CYTOLOGY O [place] [facility] [place] [address] documented in this encounter Visit Diagnoses Diagnosis [...] mg documented in this encounter Care Teams Residential Sales Consultant Relationship Specialty Start Date End Date Ana Her MD [address] [place] [address] PCP - General 07/29/13 documented as of this encounter
--- OUTSIDE RECORDS SUMMARY | 2024-05-20 10:30 | XMS_ITS | Encounter Summary ---
Author Organization [facility] Address [facility] [place] [address] Care Team Providers Care Dormitory Counselor Name Role Phone Ana Her MD Primary Care Provider [phone] Encounter Details Date Type Department Care Team (Latest Contact Info) Description 02/12/2017 - 02/12/2017 11:59 PM EDT Hospital Encounter Radiology Library [place] [facility] [place] [address] Maryam Yee MD [facility] [place] [address] Screening breast examination Discharge Disposition: Home Social [...] Only Mammo (02/12/2017 12:00 AM EDT) Narrative [facility] - 02/19/2017 1:47 PM EDT This exam is for storage only and is auto-finalizing. Maryam Yee MD IMG FILM LIBRARY O RDERABLES Performing Organization Address City/State/[facility] Co de Phone Number [place], [place] documented in this encounter Visit Diagnoses Diagnosis Screening breast examination Other screening breast examination documented in this encounter Care Teams Dormitory Counselor Relationship Specialty Start Date End Date Ana Her MD [address] [place] [address] PCP - General 07/29/13 documented as of this encounter
--- OUTSIDE RECORDS SUMMARY | 2024-05-20 10:30 | XMS_ITS | Referral Summary ---
Author Organization [facility] Address [address] [place] [address] Care Team Providers Care Guillotine Trimmer Name Role Phone Unknown, Provider MD Primary Care Provider Unava ilable Social History Tobacco Use Types Packs/Day Years Used Date Smoking Tobacco: Never Assessed Comments Unknown Sex and Gender Information Value Date Recorded Sex Assigned at Not on file Legal Sex Female 9:32 EDT Gender Identity Not on file Sexual Orientation Not on file Plan of Treatment Not on file Care Teams Guillotine Trimmer Relationship Specialty Start Date End Date Unknown, Provider, PCP - General 01/13/14
--- OUTSIDE RECORDS SUMMARY | 2024-05-20 10:30 | XMS_ITS | Encounter Summary ---
Author Organization [facility] [place] [place] [address] Care Team Providers Care Clinical Research Manager Name Role Phone Ana Her MD Primary Care Provider [phone] Encounter Details Date Type Department Care Team (Late st Contact Info) Description 03/04/2017 Orders [place] [address] Malika Chen MD [facility] [address] Malignant neoplasm of upper-outer quadrant of left [...] MD IMG MAMMO ORDERABLE S * Mammo [place] Node Injection (03/30/2017 9:01 AM EST) Anatomical [...] positive documented in this encounter Care Teams Clinical Research Manager Relationship Specialty Start Date End Date Ana Her MD [address] [facility] 1 [place] [address] PCP - General 07/29/13 documented as of this encounter
--- OUTSIDE RECORDS SUMMARY | 2024-05-20 10:30 | XMS_ITS | Encounter Summary ---
Author Organization [facility] [place] [address] Care Team Providers Care Jowl Trimmer Name Role Phone Ana Her MD Primary Care Provider [phone] Encounter Details Date Type Department Care Team (Late st Contact Info) Description 02/27/2017 Orders [place] [address] Malika Chen MD [facility] [place] [address] Malignant neoplasm of left breast in female, [...] or in patients with acute kidney failure. [email or web address] Blood specimen (specimen) 03/03/2017 7:50 AM EDT 03/03/2017 8:03 AM EDT Narrative Resulting Agency Comment Spec In Lab Malika Chen MD CHEMISTRY ORDERABLE S [facility] [place] [address] documented in this encounter Visit Diagnoses Diagnosis Malignant neoplasm of left breast in female, estrogen receptor positive, unspecified site of breast documented in this encounter Care Teams Jowl Trimmer Relationship Specialty Start Date End Date Ana Her MD [address] [facility] 1 [place] [address] PCP - General 07/29/13 documented as of this encounter
--- OUTSIDE RECORDS SUMMARY | 2024-05-20 10:30 | XMS_ITS | Encounter Summary ---
Author Organization [facility] [place] [address] Care Team Providers Care Assembler Convertible Top Name Role Phone Ana Her MD Primary Care Provider [phone] Encounter Details Date Type Department Care Team (Latest Contact Info) Description 02/25/2017 1:36 PM EDT - 02/25/2017 2:58 PM EDT Hospital En[place] [phone] Maryam Yee MD [facility] [place] [address] Abnormal mammogram Discharge Disposition: Home Social History [...] documented in this encounter Care Teams Assembler Convertible Top Relationship Specialty Start Date End Date Ana Her MD [address] [place] [address] [address] [place] [address] PCP - General 07/29/13 documented as of this encounter
--- OUTSIDE RECORDS SUMMARY | 2024-05-20 10:30 | XMS_ITS | Encounter Summary ---
Author Organization [facility] Address [facility] [place] [address] Care Team Providers Care Rcp Name Role Phone Unavailable Primary Care Provider Unavailabl e Encounter Details Date Type Department Care Team (Latest Contact Info) Description 11/12/2007 - 11/12/2007 11:59 PM EDT Hospital Encounter Radiology Library at [facility] [place] [address] Jackie Cisneros APRN [facility] [place] [address] Discharge Disposition: Home Social History Tobacco Use [...] Only Mammo (11/12/2007 12:00 AM EDT) Narrative [facility] - 02/23/2017 3:31 PM EDT This exam is for storage only and is auto-finalizing. Jackie Cisneros APRN IMG FILM LIBRARY ORD ERABLES NADINE Sethi documented in this encounter Visit Diagnoses Not on filedocumented in this encounter
--- OUTSIDE RECORDS SUMMARY | 2024-05-20 10:30 | XMS_ITS | Encounter Summary ---
Author Organization [facility] [place] [address] Care Team Providers Care Price Accuracy Supervisor Name Role Phone Ana Her MD Primary Care Provider [phone] Encounter Details Date Type Department Care Team (Latest Contact Info) Description 03/30/2017 8:30 AM [facility] Hospital [place] [address] Malika Chen MD [facility] [place] [address] Malignant neoplasm of upper-outer quadrant of left [...] mg documented in this encounter Care Teams Price Accuracy Supervisor Relationship Specialty Start Date End Date Ana Her MD [address] [place] [address] PCP - General 07/29/13 documented as of this encounter
--- OUTSIDE RECORDS SUMMARY | 2024-05-20 10:30 | XMS_ITS | Encounter Summary ---
Author Organization [facility] Address [address] [place] [address] Care Team Providers Care School Photograph Editor Name Role Phone Unknown, Provider MD Primary Care Provider Unava ilable Encounter Details Date Type Department Care Team (Late st Contact Info) Description 10/26/2022 Lab Requisition [facility] Pathology & Laboratory Medicine - [facility] [address] [place] [address] Outr Resulting Lab, Provider Social History Tobacco [...] Neg and Giardia Antigen Neg 13:48 EDT [facility] Feces SPECIMEN FROM RECTUM / Unknown 10/25/2022 15:00 EDT 10/26/2022 15:25 EDT us Provider Outr Resulting Lab MICROBIOLOGY - GENER AL ORDERABLES Final Result [facility] [address] [place] [address] * FECAL BACTERIAL PATHOGENS BY PCR (10/25/2022 15:00 EDT) Salmonella PCR Negative Negative 10/26/2022 19:17 EDT [facility] Shigella/Enteroin vasive E. coli Negative Negative 10/26/2022 19:17 EDT [facility] HN LAB CAMPYLOBACTER PCR Negative Negative 10/26/2022 19:17 EDT [facility] Shiga Toxin PCR Negative Negative 19:17 EDT [facility] Feces SPECIMEN FROM RECTUM / Unknown 10/25/2022 15:00 EDT 10/26/2022 15:25 EDT us Provider Outr Resulting Lab MICROBIOLOGY - GENER AL ORDERABLES Final Result Performing Organization Address [facility] Co de Phone Number [facility] [address] [place] [address] * OVA/PARASITE EXAM (10/25/2022 15:00 EDT) Parasite No ova and parasites seen. 10/28/2022 15:08 EDT [facility] Feces SPECIMEN FROM RECTUM / Unknown 10/25/2022 15:00 EDT 10/26/2022 15:25 EDT Narrative [facility] - 10/28/2022 15:08 EDT (If Cryptosporidium, Cyclospora, or Microsporidium are suspected, specific tests must be requested.) Single negative specimen does not rule out the possibility of a parasitic infection. us Provider Outr Resulting Lab MICROBIOLOGY - GENER AL ORDERABLES Final Result Performing Organization Address City/[facility]/ZIP Co de Phone Number [facility] [address] [place] [address] documented in this encounter Visit Diagnoses Not on filedocumented in this encounter Care Teams School Photograph Editor Relationship Specialty Start Date End Date Unknown, Provider, PCP - General 9/12/14 documented as of this encounter
--- OUTSIDE RECORDS SUMMARY | 2024-05-20 10:30 | XMS_ITS | Encounter Summary ---
Author Organization [facility] Address [facility] [place] [address] Care Team Providers Care White Sidewall Tire Buffer Name Role Phone Ana Her MD Primary Care Provider [phone] Encounter Details Date Type Department Care Team (Latest Contact Info) Description 04/24/2014 - 04/24/2014 11:59 PM EST Hospital Encounter Radiology Library at [facility] [place] [address] Maryam Yee MD [facility] [place] [address] Screening breast examination Discharge Disposition: Home Social [...] Only Mammo (04/24/2014 12:00 AM EST) Narrative [facility] - 02/19/2017 1:46 PM EDT This exam is for storage only and is auto-finalizing. Maryam Yee MD IMG FILM LIBRARY O RDERABLES [place], [place] documented in this encounter Visit Diagnoses Diagnosis Screening breast examination Other screening breast examination documented in this encounter Care Teams White Sidewall Tire Buffer Relationship Specialty Start Date End Date Ana Her MD [address] [facility] 1 [place] [address] PCP - General 07/29/13 documented as of this encounter
--- OUTSIDE RECORDS SUMMARY | 2024-05-20 10:30 | XMS_ITS | Encounter Summary ---
Author Organization [facility] Address [place] [address] Care Team Providers Care Senior Center Manager Name Role Phone Unavailable Primary Care Provider Unavailabl e Encounter Details Date Type Department Care Team (Latest Contact Info) Description 01/29/2013 - 01/29/2013 11:59 PM EDT Hospital Encounter Radiology Library at [facility] [place] [address] Jackie Cisneros APRN [facility] [place] [place] [address] Discharge Disposition: Home Social History Tobacco Use [...] Only Mammo (01/29/2013 12:00 AM EDT) Narrative [facility] - 02/23/2017 3:26 PM EDT This exam is for storage only and is auto-finalizing. Jackie Cisneros APRN IMG FILM LIBRARY ORD ERABLES NADINE Sethi documented in this encounter Visit Diagnoses Not on filedocumented in this encounter
--- OUTSIDE RECORDS SUMMARY | 2024-05-20 10:30 | XMS_ITS | Encounter Summary ---
Author Organization [facility] [place] [address] Care Team Providers Care Inventory Associate Name Role Phone Ana Her MD Primary Care Provider [phone] Encounter Details Date Type Department Care Team (Latest Contact Info) Description 02/17/2017 12:15 AM EDT - 02/17/2017 11:59 PM EDT Hospital Encounter Radiology Library [place] [facility] [place] [address] Maryam Yee MD [facility] [place] [address] Screening breast examination Discharge Disposition: Home Social [...] Mammo (02/17/2017 12:15 AM EDT) Narrative [facility] - 02/19/2017 2:01 PM EDT This exam is for storage only and is auto-finalizing. Maryam eYe MD IMG FILM LIBRARY O RDERABLES [place], [place] documented in this encounter Visit Diagnoses Diagnosis Screening breast examination Other screening breast examination documented in this encounter Care Teams Inventory Associate Relationship Specialty Start Date End Date Ana Her MD [address] [place] [address] PCP - General 07/29/13 documented as of this encounter
--- OUTSIDE RECORDS SUMMARY | 2024-05-20 10:30 | XMS_ITS | Encounter Summary ---
Author Organization Formerly [facility] [place] [address] Care Team Providers Care Prep Cook Name Role Phone Ana Her MD Primary Care Provider [phone] Encounter Details Date Type Department Care Team (Late st Contact Info) Description 03/30/2017 9:30 AM EST - 03/30/2017 11:28 AM EST [place] [id number] Brant Chen MD [facility] [place] [address] MASTECTOMY PARTIAL (WRVU 10.13) Social History Tobacco [...] shower 24 hours Activity as tolerated Call [phone] with any questions Do not soak incision [...] Delia had a bone scan in [place] which was read as possible metastasis in the left tibia. Of note- she fractured this area recently. She has recovered well. ?? PMH HNT NIDDM not on meds Spinal stenosis Fractured left tibial plateau [place]ode[place], 2017 GERD ?? FH: Maternal first cousin with breast cancer Brother with rectal cancer Sister with PE ? SH: lives alone. Has good support from sisters who live in [place]. Non smoker. Has a son who lives [...] 03/30/2017 12:27 PM EST [facility] Operative Note Patient Name: Digna Olson : [id number] MR#: [id number] Case Date: 03/30/2017 Surgeon: Surgeon(s) and Role: [...] [place] [address]. Remaining count within the axilla was 1982. [...] [facility] [place] [address] * Specimen to Pathology (surgical or derm) (03/30/2017 12:08 PM EST) AP Specimen 03/30/2017 12:0 8 PM EST 03/30/2017 12:08 PM EST Narrative [facility] - 03/30/2017 12:08 PM EST Specimen requisition ordered. ??Separate Pathology report to follow Brant Chen MD PATHOLOGY/CYTOLOGY ORDERABLES Performing Organization Address [facility] Co de Phone Number [facility] [place] [address] * Specimen to Pathology (surgical or derm) (03/30/2017 12:00 PM EST) AP Specimen 03/30/2017 12:0 0 PM EST 03/30/2017 12:00 PM EST Narrative [facility] - 03/30/2017 12:00 PM EST Specimen requisition ordered. ??Separate Pathology report to follow Brant Chen MD PATHOLOGY/CYTOLOGY ORDERABLES Performing Organization Address [facility] [place] [address] * Specimen to Pathology (surgical or derm) (03/30/2017 11:51 AM EST) AP Specimen 03/30/2017 11:5 1 AM EST 03/30/2017 11:51 AM EST Narrative [facility] - 03/30/2017 11:51 AM EST Specimen requisition ordered. ??Separate Pathology report to follow Brant Chen MD PATHOLOGY/CYTOLOGY ORDERABLES Performing Organization Address [facility] Co de Phone Number [facility] [place] [phone] * Surgical Pathology Report (03/30/2017 11:50 AM EST) Final Diagnosis [id number] ? Location: [facility]; [facility]; A The signing pathologist has (i) examined the relevant preparation(s) for the specimen(s) and (ii) rendered or confirmed the diagnosis(es). . ?Surgical Pathology DIAGNOSIS A,B - See Synoptic C - Left breast, Deep/lateral margin re-excision - ?Benign fatty breast tissue. D - Left breast, Superficial margin re-excision - ?Benign fatty breast tissue. See Note Note - [place] ink (indicating additional cranial margin) is also present on this superficial margin re-excision. ---- Specimen Parts: ?? A - Left axilliary sentinel node B - Left breast partial mastectomy Specimen ? Procedure: ??Excision with image-guided localization ? Lymph Node Sampling: ?? Coram lymph node(s) ? Specimen Laterality: ?? Left [...] not present in specimen Lymph Nodes ? Coram Lymph Nodes: ?? Coram lymph node biopsy performed ? Number of Coram Nodes Examined: ?3 ? Number of Lymph [...] ??04/01/2017 ?Pathologist Performed at: ??-[facility] Dept. of Pathology, [place], [place] CLINICAL INFORMATION Specimen Submitted: A - [...] and there are ??no close margins. per [facility]iology . Specimen Description: According to [...] 0.8 x 0.4 x 0.4 cm. Color: [place] and yellow. Consistency: Soft. Location: Slices III and IV. Nearest Margin: 0.6 cm to the cranial margin. Other Margins: 0.8 cm to the deep margin, 1.0 cm to the superficial margin, ? > 2 cm from all other margins. OTHER Parenchyma: Predominately fatty with scant fibrous tissue. Wire/Clip: Biopsy marker clip identified within slice IV. SECTIONS/PROCESSI NG: (1) ambulatory services representative slice I, lateral margin; (2) slice III, lesion to cranial margin; (3-5) remainder of slice III; (6) slice IV, lesion to cranial margin (clip); (7-8) remainder of slice IV; (9) ambulatory services representative slice V; (10) ambulatory services representative slice X, medial margin. (R10) [...] AM EST Brant Chen MD PATHOLOGY/CYTOLOGY ORDERABLES [facility] [place] [address] * Mammo Direct Digital Left (03/30/2017 9:15 [...] Routine documented in this encounter Care Teams Prep Cook Relationship Specialty Start Date End Date Ana Her MD [address] [place] [address] PCP - General 07/29/13 documented as of this encounter
--- OUTSIDE RECORDS SUMMARY | 2024-05-20 10:30 | XMS_ITS | Encounter Summary ---
[place] [address] Care Team Providers Care Paradichlorobenzene Tender Name Role Phone Ana Her MD Primary Care Provider [phone] Encounter Details Date Type Department Care Team (Late st Contact Info) Description 02/27/2017 Telephone [place]ematology [place] [phone] Argentina Sanchez RN Social History Tobacco Use [...] a 71 y.o. 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 Alma Delia sounds positive and has support. She will have someone accompany her to appointments. She appears to be coping well but is anxious to meet with a breast surgeon to determine a treatment plan. Alma Delia have a bone SPECT done 1-2 months ago at [facility] and her doctor there questioned an [...] for her review (a link to the [facility] Early Stage Breast Cancer program). The Breast [...] on filedocumented in this encounter Care Teams Paradichlorobenzene Tender Relationship Specialty Start Date End Date Ana Her MD [address] [place] [address] PCP - General 07/29/13 documented as of this encounter
--- OUTSIDE RECORDS SUMMARY | 2024-05-23 10:30 | XMS_ITS | Encounter Summary ---
Author Organization [facility] [place] [address] Care Team Providers Care Director [employer] Name Role Phone Ana Her MD Primary Care Provider [phone] Encounter Details Date Type Department Care Team (Late st Contact Info) Description 03/10/2022 1:35 AM EST Ancillary Procedure Radiology Library at [facility] [place] [address] Ana Her MD [address] [place] [address] [facility] [address] [place], [place] [id number] Social History Tobacco Use Types Packs/Day Years [...] Chest (03/10/2022 1:31 AM EST) Narrative [facility] - 03/10/2022 1:31 AM EST This exam is auto-finalizing. It's purpose is for storage only. Ana Her MD IM FILM LIBRARY ORD ERABLES [place], [place] documented in this encounter Visit Diagnoses Not on filedocumented in this encounter Care Teams Director [employer] Relationship Specialty Start Date End Date Ana Her MD [facility] [address] [facility] [address] [place] [address] PCP - General 07/29/13 documented as of this encounter
--- OUTSIDE RECORDS SUMMARY | 2024-05-23 10:30 | XMS_ITS | Encounter Summary ---
[place] [address] Care Team Providers Care Convex Grinder Name Role Phone Ana Her MD Primary Care Provider [phone] Reason for Visit * Auth/Cert Specialty Diagnoses / Procedures Referred By Christiano hackett Referred To Contact Diagnoses S/P repair of paraesophageal hernia Post-Op monitoring Procedures PRO LAPARSCOPY REPAIR PARAESOPHAGEAL HERNIA INCL FUNDOPLASTY W/O MESH LAPAROSCOPIC PARAESOPHAGEAL HERNIA REPAIR W/FUNDOPLASTY, W/O MESH (WRVU 26.6) MODIFIER TOUPET FUNDOPLASTY Shania Will MD [facility] [address] [facility] Referral ID Status Reason Start Date Expiration Date Visits Re quested Visits Authorized [id number] 1 1 Encounter Details Date Type Department Care Team (Latest Contact Info) Description 03/05/2022 11:55 AM EDT - 03/07/2022 10:00 AM EDT Hospital Encounter [place] [phone] Shania Will MD [facility] [address] Discharge Disposition: Home Social History Tobacco Use [...] of left breast of female, estrogen receptor [id number], Z17.0 ??? Anemia D64.9 ??? Aortic valve [...] of hernia and fundoplication. Hospital Course: Digna lOson is a 76 y.o. female who was [...] Per chart review, her creatinine levels in 7319-1115 ranged from 0.87-1.50 indicative of possible undiagnosed [...] at [facility] Arrive at: [facility] [facility] [phone] Instructions Given to Patient at Discharge: Patient [...] hours please call the Surgery Clinic at [phone] before 5 PM on weekdays. For questions after hours and on weekends please call the hospital ball truing machine operator at [phone] and ask for the General Surgery resident operations scheduler. They may not be familiar with your [...] post Sly diet, as instructed by the kettle girl in the hospital for a period of [...] renal function. Please call the clinic at [phone] to confirm or reschedule. Future Appointments Date Time Provider Department Center 04/03/2022 12:00 PM Shania Will MD [facility] SURG [facility] General Instructions None Future Appointments and Orders Future Appointments and Orders Future Appointments Provider Department Dept Phone 04/03/2022 12:00 PM Shania Will MD General Surgery at [facility] Arrive at: [facility] Area Signed: Shena Harden MD 03/07/22 7:18 AM [facility] [address] Primary [place] Physician: MD Ge[address] [place] [facility] [id number] documented in this encounter Discharge Instructions * [...] hours please call the Surgery Clinic at [phone] before 5 PM on weekdays. For questions after hours and on weekends please call the hospital ball truing machine operator at [phone] and ask for the General Surgery resident operations scheduler. They may not be familiar with your [...] post Sly diet, as instructed by the kettle girl in the hospital for a period of [...] renal function. Please call the clinic at [phone] to confirm or reschedule. Future Appointments Date [...] Ocampo RN - 03/07/2022 10:25 AM EDT [facility] Short Stay Unit Discharge Note [...] Sly Diet Education to pt Digna Olson. Floor And Wall Applier Liquid metwith pt at bedside to deliver full [...] she is noticing some overall improvement post op.Floor And Wall Applier Liquid took note of this and encouraged the [...] Department contact information provided. Pt appreciate of customs entry writer's time. Nutrition to follow as needed. [...] Perez MD 03/05/2022 Minimally Invasive Surgery Pager #[phone] * Lorrie Slater RN - 03/05/2022 6:46 [...] ?? [facility] [...] of left breast of female, estrogen receptor [id number], Z17.0 ??? Anemia D64.9 ??? Aortic valve [...] 6.43) performed by Malika Chen MD at [facility] MAIN OR ??? PRO INTRAOP SENTINEL LYMPH ID W/DYE INJECTION Left 03/30/2017 ?? INTRAOPERATIVE ID (MAPPING) SENTINEL LYMPH NODE,INCLUDES INJECTION (WRVU 2.5) performed by Malika Chen MD at [facility] MAIN OR ??? PRO MASTECTOMY PARTIAL Left 03/30/2017 ?? MASTECTOMY PARTIAL (WRVU 10.13) performed by Malika Chen MD at [facility] MAIN OR ?? Cholecystectomy ?? [...] Operative Note Patient Name: Digna Olson : [id number] MR#: [id number] Case Date: 03/05/2022 Surgeon: Surgeon(s) and Role: [...] Operative Note Patient Name: Digna Olson : [id number] MR#: [id number] Case Date: 03/05/2022 Surgeon: Surgeon(s) and Role: [...] Repair Paraesophageal Hernia Incl Fundoplasty W/O Mesh (10183) 03/05/2022 1:58 PM EDT Paraesophageal Hernia POCT GLUCOSE Routine 03/05/2022 12:18 PM EDT LAPAROSCOPIC PARAESOPHAGEAL HERNIA REPAIR W FUNDOPLASTY, W/O MESH Routine 03/05/2022 12:02 PM EDT documented in this encounter Results * (ABNORMAL) Differential, Automated (03/07/2022 5:08 AM EDT) Neutrophil % 80.0 % [facility] Neutrophil Absolute 5.30 1.70 - 6.10 x10(3)/mc L [facility] Lymph % 12.1 % [facility] Lymphocytes Abs 0.8(L) 0.9 - 3.2 x10(3)/mc L [facility] Monocyte % 7.6 % [facility] Monocyte Abs 0.5 0.3 - 0.9 x10(3)/mc L [facility] Eos % 0.0 % [facility] Eosinophils Abs 0.0 0.0 - 0.4 x10(3)/mc L [facility] Basophil % 0.0 % [facility] Baso Absolute 0.0 0.0 - 0.1 x10(3)/[facility] Immature Gran % 0.30 % [facility] Comment: Immature granulocytes(IG's)percentage and absolute count will include metamyelocytes, myelocytes, and promyelocytes. Blood smears from CBCs yielding IG's will be scanned manually for concordance. If this scan disagrees with the automated IG or if promyelocytes are noted, a manual differential will be performed. Immature Gran Absolute 0.02 0.00 - 0.04 x10(3)/[facility] Blood 03/07/2022 5:08 AM EDT 03/07/2022 5:19 AM EDT Narrative Resulting Agency Comment Spec In Lab Nino Levy MD HEMATOLOGY ORDERABLE S Performing Organization Address City/State/[facility] Co de Phone Number [facility] [place] [address] * (ABNORMAL) Hemogram (03/07/2022 5:08 AM EDT) White Blood Cell 6.6 4.0 - 9.5 x10(3)/[facility] Red Blood Cell 3.16(L) 4.00 - 5.21 x10(6)/[facility] Hemoglobin 10.7(L) 11.7 - 15.5 g/dL [facility] Hematocrit 31.7(L) 35.7 - 45.8 % [facility] Mean Cell Volume 100.3(H) 82.6 - 94.4 fL [facility] Mean Cell Hemoglobin 33.9(H) 27.1 - 32.0 pg [facility] Mean Cell Hemoglobin Concentration 33.8 31.7 - 35.0 g/dL [facility] Platelet 110(L) 145 - 357 x10(3)/[facility] RDW Standard Deviation 47.5(H) 37.0 - 46.0 fL [facility] RDW coefficient of variation 12.9 11.5 - 14.1 % [facility] Mean Platelet Volume 11.7 7.6 - 12.9 fL [facility] NRBC% auto 0.0 % [facility] NRBC Absolute 0.000 0.000 - 0.000 x10(3)/mc L [facility] Blood 03/07/2022 5:08 AM EDT 03/07/2022 5:19 AM EDT Narrative Resulting Agency Comment Spec In Lab Nino Levy MD HEMATOLOGY ORDERABLE S [facility] [place] [address] * Phosphorus (03/07/2022 5:08 AM EDT) Phosphorus 2.7 2.5 - 4.5 mg/dL [facility] Blood 03/07/2022 5:08 AM EDT 03/07/2022 5:19 AM EDT Narrative Resulting Agency Comment Spec In Lab Shania Will MD CHEMISTRY ORDERABLE S Performing Organization Address City/[facility]/ZIP Co de Phone Number [facility] [place] [address] * Magnesium (03/07/2022 5:08 AM EDT) Magnesium 0.89 0.69 - 1.07 mmol/L [facility] Blood 03/07/2022 5:08 AM EDT 03/07/2022 5:19 AM EDT Narrative Resulting Agency Comment Spec In Lab Shania Will MD CHEMISTRY ORDERABLE S [facility] [place] [address] * (ABNORMAL) Basic Metabolic Panel (non-fasting) (03/07/2022 [...] Lab Shania Will [place] [address] * (ABNORMAL) Differential, Automated (03/06/2022 10:15 AM EDT) Pathologist [facility] Neutrophil % 90.7 % [facility] Neutrophil Absolute 5.79 1.70 - 6.10 x10(3)/ L [facility] Lymph % 5.0 % [facility] Lymphocytes Abs 0.3(L) 0.9 - 3.2 x10(3)/ L [facility] Monocyte % 3.8 % [facility] Monocyte Abs 0.2(L) 0.3 - 0.9 x10(3)/[facility] Eos % 0.0 % [facility] Eosinophils Abs 0.0 0.0 - 0.4 x10(3)/[facility] Basophil % 0.0 % [facility] [...] Absolute 0.03 0.00 - 0.04 x10(3)/ L [facility] Blood 03/06/2022 10:1 5 AM EDT 03/06/2022 10:21 AM EDT Narrative Resulting Agency Comment Spec In Lab Maryam MUELL[place] [address] * (ABNORMAL) Hemogram (03/06/2022 10:15 AM EDT) [...] Platelet 111(L) 145 - 357 x10(3)/ L [facility] RDW Standard Deviation 47.2(H) 37.0 - 46.0 fL [facility] RDW coefficient of variation 12.9 11.5 - 14.1 % [facility] Mean Platelet Volume 11.5 7.6 - 12.9 fL [facility] NRBC% auto 0.0 % [facility] NRBC Absolute 0.000 0.000 - 0.000 x10(3)/mc L [facility] Blood 03/06/2022 10:1 5 AM EDT 03/06/2022 10:21 AM EDT Narrative Resulting Agency Comment Spec In Lab Maryam MUELLER HEMATOLOGY ORDERABL ES [facility] [place] [address] * Phosphorus (03/06/2022 10:15 AM EDT) Phosphorus 3.3 2.5 - 4.5 mg/dL [facility] Blood 03/06/2022 10:1 5 AM EDT 03/06/2022 10:21 AM EDT Narrative Resulting Agency Comment Spec In Lab Shania Will MD CHEMISTRY ORDERABLE S Performing Organization Address City/[facility]/ZIP Co de Phone Number [facility] [place] [address] * Magnesium (03/06/2022 10:15 AM EDT) Magnesium 0.69 0.69 - 1.07 mmol/L [facility] Blood 03/06/2022 10:1 5 AM EDT 03/06/2022 10:21 AM EDT Narrative Resulting Agency Comment Spec In Lab Shania Will MD CHEMISTRY ORDERABLE S Performing Organization Address [facility] Co de Phone Number [facility] [place] [address] * (ABNORMAL) Basic Metabolic Panel (non-fasting) (03/06/2022 10:15 AM EDT) Pathologist [facility] Glucose 155 65 - 199 mg/dL [facility] Co de Phone Number [facility] [place] [address] * (ABNORMAL) Differential, Automated (03/06/2022 4:29 AM EDT) Neutrophil % 90.5 % [facility] Neutrophil Absolute 4.47 1.70 - 6.10 x10(3)/mc L [facility] Lymph % 6.9 % [facility] Lymphocytes Abs 0.3(L) 0.9 - 3.2 x10(3)/mc L [facility] Monocyte % 2.2 % [facility] Monocyte Abs 0.1(L) 0.3 - 0.9 x10(3)/mc L [facility] Eos % 0.0 % [facility] Eosinophils Abs 0.0 0.0 - 0.4 x10(3)/mc L [facility] Basophil % 0.2 % [facility] [...] Absolute 0.01 0.00 - 0.04 x10(3)/ L [facility] Blood 03/06/2022 4:29 AM EDT 03/06/2022 4:49 AM EDT Narrative Resulting Agency Comment Spec In Lab Prakash Mendez MD HEMATOLOGY ORDERABLE S [facility] [place] [address] * (ABNORMAL) Hemogram (03/06/2022 4:29 AM EDT) White Blood Cell 4.9 4.0 - 9.5 x10(3)/ L [facility] Red Blood Cell 3.08(L) 4.00 - 5.21 x10(6)/ L [facility] Hemoglobin 10.5(L) 11.7 - 15.5 g/dL [facility] Hematocrit 31.0(L) 35.7 - 45.8 % [facility] Mean Cell Volume 100.6(H) 82.6 - 94.4 fL [facility] Mean Cell Hemoglobin 34.1(H) 27.1 - 32.0 pg [facility] Mean Cell Hemoglobin Concentration 33.9 31.7 - 35.0 g/dL [facility] Platelet 104(L) 145 - 357 x10(3)/ L [facility] RDW Standard Deviation 47.5(H) 37.0 - 46.0 fL [facility] RDW coefficient of variation 12.9 11.5 - 14.1 % [facility] Mean Platelet Volume 11.8 7.6 - 12.9 fL [facility] NRBC% auto 0.0 % [facility] NRBC Absolute 0.000 0.000 - 0.000 x10(3)/mc L [facility] Blood 03/06/2022 4:29 AM EDT 03/06/2022 4:49 AM EDT Narrative Resulting Agency Comment Spec In Lab Prakash Mendez MD HEMATOLOGY ORDERABLE S [facility] [place] [address] * (ABNORMAL) Basic Metabolic Panel (non-fasting) (03/06/2022 [...] MD CHEMISTRY ORDERABLE S [facility] [place] [address] * POCT Glucose (03/05/2022 12:18 PM EDT) Glucose, POC 94 65 - 199 mg/dL [facility] Comment: Supplemental ranges: <140 mg/dL before meals <180 mg/dL all other times of the day Blood 03/05/2022 12:1 8 PM EDT 03/05/2022 12:18 PM EDT Shania Will MD POINT OF CARE TEST ORDERABLES Performing Organization Address City/[facility]/ZIP Co de Phone Number [facility] [place] [address] documented in this encounter Visit Diagnoses Diagnosis [...] Unit) documented in this encounter Care Teams Convex Grinder Relationship Specialty Start Date End Date Ana Her MD [address] [place] [address] PCP - General 07/29/13 documented as of this encounter
--- OUTSIDE RECORDS SUMMARY | 2024-05-23 10:30 | XMS_ITS | Encounter Summary ---
Author Organization [facility] [place] [address] Care Team Providers Care Educational Administrator Name Role Phone Ana Her MD Primary Care Provider [phone] Encounter Details Date Type Department Care Team (Latest Contact Info) Description 04/03/2022 12:00 PM EST TH Visit (TeleHealth) [place] [address] Laura Will MD [facility] [place] [address] Status post repair of paraesophageal diaphragmatic hernia [...] status documented in this encounter Care Teams Educational Administrator Relationship Specialty Start Date End Date Ana Her MD [facility] [address] [place] [address] PCP - General 07/29/13 documented as of this encounter
--- OUTSIDE RECORDS SUMMARY | 2024-05-23 10:30 | XMS_ITS | Encounter Summary ---
Author [place] [address] Care Team Providers Care Systems Eng Name Role Phone Ana Her MD Primary Care Provider [phone] Encounter Details Date Type Department Care Team (Late st Contact Info) Description 02/03/2023 Telephone Hematology [place] [id number] Maryam Barrett Social History Tobacco Use Types [...] on filedocumented in this encounter Care Teams Systems Eng Relationship Specialty Start Date End Date Ana Her MD [address] [place] [address] PCP - General 07/29/13 documented as of this encounter
--- OUTSIDE RECORDS SUMMARY | 2024-05-23 10:30 | XMS_ITS | Encounter Summary ---
Author Organization [facility] [place] [address] Care Team Providers Care Party Plan Dealer Name Role Phone Ana Her MD Primary Care Provider [phone] Encounter Details Date Type Department Care Team (Late st Contact Info) Description 03/09/2022 11:00 PM EST Ancillary Procedure Radiology Library at [facility] [place] [address] Ana Her MD [address] [place] [address] [facility] [address] [place], [place] [id number] Social History Tobacco Use Types Packs/Day Years [...] CT Chest (03/09/2022 10:56 PM EST) Narrative [facility] [facility] - 03/09/2022 10:56 PM EST This exam is auto-finalizing. It's purpose is for storage only. Ana Her MD IM FILM LIBRARY ORD ERABLES [place], [place] documented in this encounter Visit Diagnoses Not on filedocumented in this encounter Care Teams Party Plan Dealer Relationship Specialty Start Date End Date Ana Her MD [address] [facility] [address] [place] [address] PCP - General 07/29/13 documented as of this encounter
--- OUTSIDE RECORDS SUMMARY | 2024-05-23 10:30 | XMS_ITS | Data Portability ---
Author Organization [place] - [facility], [facility] [place] [facility] [place] [address] Care Team Providers Care Senior Clinical Data Manager Name Role Phone GABINODC Paradi Operator [facility] Orthopedic Surgeon [facility] Sleep Medicine [facility] Utility Mechanic Assessment Encounter Date Assessment Date Assessment LastModified by Organization Details LastModified Time 10/14/2023 10/14/2023 Patient presents for pre-op evaluation. The patient is a suitable candidate for the planned procedure. Their chronic medical problems are optimized Further preoperative evaluation is not needed. BMP and CBC are drawn today. The total time devoted to today's encounter, including both the xqfn-mx-yqjt time with the patient and/or family/caregive r and fyf-fcsq-az-fac e time I personally spent is 30 minutes. Not available 10/14/2023 11:57:30 12/02/2023 12/02/2023 The total time devoted to today's encounter, including both the kydi-dx-sfzp time with the patient and/or family/caregive r and lwi-zvnt-or-fac e time I personally spent is 35 minutes. Not available 12/02/2023 14:47:23 03/04/2024 03/04/2024 The total time devoted to today's encounter, including both the dnpe-nf-yaav time with the patient and/or family/caregive r and vrr-feth-aj-fac e time I personally spent is 44 minutes. Not available 03/04/2024 17:47:18 Plan of Treatment Reminders Order Date Submit Date Provider Last Modified By Organization Details Last Modified Time Details Appointments Follow Up 2024 01:20P Allan Her Not available Not available Not available Lab CBC 2023 024 [facility] (Registration ), [address] [place] [address] [place], [address], 10/14/2023 15:11:07 BMP, serum or plasma 2023 024 [facility] (Registration ), [address] [place] [address] [place], [address], 10/14/2023 17:41:37 BMP, serum or plasma 2023 024 [facility] (Registration ), [address] [place] [address] [place], [address], 12/30/2023 08:56:49 magnesium , serum or plasma 2023 024 [facility] (Registration ), [address] [place] [address] [place], [address], 12/09/2023 07:38:05 BNP (B-type natriuret ic peptide), serum or plasma 2023 024 [facility] (Registration ), [address] [place] [address] [place], [address], 12/03/2023 20:48:47 CBC 2023 024 [facility] (Registration ), [address] [place] [address] [place], [address], 12/02/2023 16:35:23 BMP, serum or plasma 2023 024 [facility] (Registration ), [address] [place] [address] [place], [address], 04/19/2024 11:42:49 vitamin D, 25-hydrox y, total, serum 2023 024 [facility] (Registration ), [address] [place] [address] [place], [address], 04/18/2024 16:09:19 HbA1c (hemoglob in A1c), blood 2023 [facility] (Registration ), [address] [place] [address] [place], [address], 04/19/2024 11:39:49 TSH, serum, reflex free T4 2023 [facility] (Registration ), [address] [place] [address] [place], [address], 04/19/2024 11:40:25 CBC 2023 [facility] (Registration ), [address] [place] [address] [place], [address], 04/18/2024 15:08:25 ferritin, serum or plasma 2023 [facility] (Registration ), [address] [place] [address] [place], [address], 04/19/2024 11:41:22 iron + total iron-bind ing capacity (TIBC), serum 2023 [facility] (Registration ), [address] [place] [address] [place], [address], 04/19/2024 11:43:17 BMP, serum or plasma 2023 024 [facility] (Registration ), [address] [place] [address] [place], [address], 04/19/2024 11:42:49 vitamin D, 25-hydrox y, total, serum 2023 [facility] (Registration ), [address] [place] [address] [place], [address], 04/18/2024 16:09:19 HbA1c (hemoglob in A1c), blood 2023 024 [facility] (Registration ), [address] [place] [address] [place], [address], 04/19/2024 11:39:49 TSH, serum, reflex free T4 2023 024 [facility] (Registration ), [address] [place] [address] [place], [address], 04/19/2024 11:40:25 CBC 2023 024 [facility] (Registration ), [address] [place] [address] [place], [address], 04/18/2024 15:08:25 ferritin, serum or plasma 2023 024 [facility] (Registration ), [address] [place] [address] [place], [address], 04/19/2024 11:41:22 iron + total iron-bind ing capacity (TIBC), serum 2023 024 [facility] (Registration ), [address] [place] [address] [place], [address], 04/19/2024 11:43:17 Referral None recorded. Procedures None recorded. Surgeries None recorded. Imaging electroca rdiogram 2023 024 [facility], [address], [place], [address], 10/14/2023 11:56:21 Medication Orders tramadol 50 mg tablet 2023 024 [facility], [address] [facility], [place], [address], 02/19/2024 13:12:28 furosemid e 80 mg tablet 2023 024 [facility], [address] [place] [address], [address], [place], [address], 03/04/2024 14:49:38 spironola ctone 25 mg tablet [address], [address] [place] [address], [facility] [place], [address], 12/02/2023 12:50:28 lisinopri l 5 mg tablet 2023 024 [facility], [address] [place] [address], [facility] [address], [place], [address], 02/19/2024 13:19:32 carvedilo l 25 mg tablet 2023 [facility] [address] [place] [address], [address], [place], [address], 04/29/2024 12:42:49 hydromorp ricky 2 mg tablet 2023 024 [facility], [address] [place], [address], 03/04/2024 15:12:30 levothyro xine 75 mcg tablet [address] [facility], [address] [place], [address], 03/04/2024 16:32:19 Patient TargetsNo targets recorded. Patient InstructionsNo instructions recorded. 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 None Reported. Results Created Date Observation Date Name Description Value Unit Range Abnormal Flag Note LastModifiedBy Organization Detail LastModifiedTime 10/14/19 24 10/14/2023 COMPL ETE BLOOD COUNT NO DIFF WBC 8.22 10_3/ uL 4.4-10 .8 normal Not Available [facility] [address] [place], [address] 10/14/2023 15:11:07 10/14/19 24 10/14/2023 COMPL ETE BLOOD COUNT NO DIFF RBC 3.22 10_6/ uL 3.93-5 .22 low Not Available [address] [place], [address] 10/14/2023 15:11:07 10/14/19 24 10/14/2023 COMPL ETE BLOOD COUNT NO DIFF HGB 10.9 g/dL 11.2-1 5.7 low Not Available [address] [place], [address] 10/14/2023 15:11:07 10/14/19 24 10/14/2023 COMPL ETE BLOOD COUNT NO DIFF HCT 32.5 % 36.0-4 6.0 low Not Available [address] [place], [address] 10/14/2023 15:11:07 10/14/19 24 10/14/2023 COMPL ETE BLOOD COUNT NO DIFF MCV 101 fL 80-95 high Not Available Ethel [address] [place], [address] 10/14/2023 15:11:07 10/14/19 24 10/14/2023 COMPL ETE BLOOD COUNT NO DIFF MCH 33.9 pg 27.0-3 3.0 high Not Available [address] [place], [address] 10/14/2023 15:11:07 10/14/19 24 10/14/2023 COMPL ETE BLOOD COUNT NO DIFF MCHC 33.5 % 32.0-3 6.0 normal Not Available [address] [place], [address] 10/14/2023 15:11:07 10/14/19 24 10/14/2023 COMPL ETE BLOOD COUNT NO DIFF RDW 13.9 % 11.7-1 4.6 normal Not Available [address] [place], [address] 10/14/2023 15:11:07 10/14/19 24 10/14/2023 COMPL ETE BLOOD COUNT NO DIFF platelet count 133 10_3/ uL 130-40 0 normal Not Available [address] [place], [address] 10/14/2023 15:11:07 10/14/19 24 10/14/2023 COMPL ETE BLOOD COUNT NO DIFF MPV 12.8 fL 8.0-11 .0 high Not Available [address] [place], [address] 10/14/2023 15:11:07 10/14/19 24 10/14/2023 BASIC METAB OLIC PANEL calcium 9.3 mg/dL 8.5-10 .1 normal Not Available [facility] (Registration ) [address] [place] [address] [place], [address], 10/14/2023 15:19:07 10/14/19 24 10/14/2023 BASIC METAB OLIC PANEL glucose 105 mg/dL 74-106 normal Not Available [facility] (Registration ) [address] [place] [address] [place], [address], 10/14/2023 15:19:07 10/14/19 24 10/14/2023 BASIC METAB OLIC PANEL BUN 49 mg/dL 7-18 high Not Available [facility] (Registration ) [address] [place] [address] [place], [address], 10/14/2023 15:19:07 10/14/19 24 10/14/2023 BASIC METAB OLIC PANEL creatinine 1.9 mg/dL 0.55-1 .02 high Not Available [facility] (Registration ) [address] [place] [address] [place], [address], 10/14/2023 15:19:07 10/14/19 24 10/14/2023 BASIC METAB [...] young er-ag ed adult s. Not Available [facility] (Registration ) [address] [place] [address] [place], [address], 10/14/2023 15:19:07 10/14/19 24 10/14/2023 BASIC METAB OLIC PANEL sodium 137 mmol/ L 136-14 5 normal Not Available [facility] (Registration ) [address] [place] [address] [place], [address], 10/14/2023 15:19:07 10/14/19 24 10/14/2023 BASIC METAB OLIC PANEL potassium 5.1 mmol/ L 3.5-5. 1 normal Not Available [facility] (Registration ) [address] [place] [address] [place], [address], 10/14/2023 15:19:07 10/14/19 24 10/14/2023 BASIC METAB OLIC PANEL chloride 104 mmol/ L 98-107 normal Not Available [facility] (Registration ) [address] [place] [address] [place], [address], 10/14/2023 15:19:07 10/14/19 24 10/14/2023 BASIC METAB OLIC PANEL CO2 20.3 mmol/ L 21.0-3 2.0 low Not Available [facility] (Registration ) [address] [place] [address] [place], [address], 10/14/2023 15:19:07 10/14/19 24 10/14/2023 BASIC METAB OLIC PANEL anion gap 12.7 mmol/ L 3-11 high Not Available [facility] (Registration ) [address] [place] [address] [place], [address], 10/14/2023 15:19:07 11/18/19 24 11/18/2023 LACTA TE lactate 1.0 mmol/ L 0.6-1. 4 normal Not Available [address] [place], [address] 11/18/2023 15:53:33 11/18/19 24 11/18/2023 COMPL ETE BLOOD COUNT W/DIF F WBC 8.69 10_3/ uL 4.4-10 .8 normal Not Available [address] [place], [address] 11/18/2023 15:57:13 11/18/19 24 11/18/2023 COMPL ETE BLOOD COUNT W/DIF F RBC 3.16 10_6/ uL 3.93-5 .22 low Not Available [address] [place], [address] 11/18/2023 15:57:13 11/18/19 24 11/18/2023 COMPL ETE BLOOD COUNT W/DIF F HGB 10.7 g/dL 11.2-1 5.7 low Not Available [address] [place], [address] 11/18/2023 15:57:13 11/18/19 24 11/18/2023 COMPL ETE BLOOD COUNT W/DIF F HCT 33.0 % 36.0-4 6.0 low Not Available [address] [place], [address] 11/18/2023 15:57:13 11/18/19 24 11/18/2023 COMPL ETE BLOOD COUNT W/DIF F MCV 104 fL 80-95 high Not Available [address] [place], [address] 11/18/2023 15:57:13 11/18/19 24 11/18/2023 COMPL ETE BLOOD COUNT W/DIF F MCH 33.9 pg 27.0-3 3.0 high Not Available [address] [place], [address] 11/18/2023 15:57:13 11/18/19 24 11/18/2023 COMPL ETE BLOOD COUNT W/DIF F MCHC 32.4 % 32.0-3 6.0 normal Not Available [address] [place], [address] 11/18/2023 15:57:13 11/18/19 24 11/18/2023 COMPL ETE BLOOD COUNT W/DIF F RDW 14.6 % 11.7-1 4.6 normal Not Available [address] [place], [address] 11/18/2023 15:57:13 11/18/19 24 11/18/2023 COMPL ETE BLOOD COUNT W/DIF F platelet count 134 10_3/ uL 130-40 0 normal Not Available [address] [place], [address] 11/18/2023 15:57:13 11/18/19 24 11/18/2023 COMPL ETE BLOOD COUNT W/DIF F MPV 11.2 fL 8.0-11 .0 high Not Available [address] [place], [address] 11/18/2023 15:57:13 11/18/19 24 11/18/2023 COMPL ETE BLOOD COUNT W/DIF F neutrophils % 74.8 % Not Available [address] [place], [address] 11/18/2023 15:57:13 11/18/19 24 11/18/2023 COMPL ETE BLOOD COUNT W/DIF F lymphocytes % 13.2 % Not Available [address] [place], [address] 11/18/2023 15:57:13 11/18/19 24 11/18/2023 COMPL ETE BLOOD COUNT W/DIF F monocytes % 5.9 % Not Available [address] [place], [address] 11/18/2023 15:57:13 11/18/19 24 11/18/2023 COMPL ETE BLOOD COUNT W/DIF F eosinophils % 5.2 % Not Available [address] [place], [address] 11/18/2023 15:57:13 11/18/19 24 11/18/2023 COMPL ETE BLOOD COUNT W/DIF F basophils % 0.6 % Not Available [address] [place], [address] 11/18/2023 15:57:13 11/18/19 24 11/18/2023 COMPL ETE BLOOD COUNT W/DIF F immature grans % 0.3 % Not Available Ariela avitia [address] [place], [address] 11/18/2023 15:57:13 11/18/19 24 11/18/2023 COMPL ETE BLOOD COUNT W/DIF F nucleated RBC 0.0 % 0.0-0. 3 normal Not Available [address] [place], [address] 11/18/2023 15:57:13 11/18/19 24 11/18/2023 COMPL ETE BLOOD COUNT W/DIF F absolute neutrophil count 6.50 10_3/ uL 1.2-6. 7 normal Not Available [address] [place], [address] 11/18/2023 15:57:13 11/18/19 24 11/18/2023 COMPL ETE BLOOD COUNT W/DIF F absolute lymphocyte count 1.15 10_3/ uL 1.2-3. 4 low Not Available [address] [place], [address] 11/18/2023 15:57:13 11/18/19 24 11/18/2023 COMPL ETE BLOOD COUNT W/DIF F absolute monocyte count 0.51 10_3/ uL 0.1-0. 8 normal Not Available [address] [place], [address] 11/18/2023 15:57:13 11/18/19 24 11/18/2023 COMPL ETE BLOOD COUNT W/DIF F absolute eosinophil count 0.45 10_3/ uL 0.0-0. 7 normal Not Available [address] [place], [address] 11/18/2023 15:57:13 11/18/19 24 11/18/2023 COMPL ETE BLOOD COUNT W/DIF F absolute basophil count 0.05 10_3/ uL 0.0-0. 2 normal Not Available [address] [place], [address] 11/18/2023 15:57:13 11/18/19 24 11/18/2023 PROTH ROMBI N TIME prothrombin time 10.5 sec 9.1-11 .1 normal Not Available [address] [place], [address] 11/18/2023 16:14:17 11/18/19 24 11/18/2023 PROTH ROMBI N TIME INR 1.0 0.9-1. 1 normal Recom noel d INR thera peuti c range s for orall y admin ister ed drugs are as follo ws: -Jair dard Inten sity 2.0 to 3.0 -High er Inten sity 3.0 to 4.5 Not Available [address] [place], [address] 11/18/2023 16:14:17 11/18/19 24 11/18/2023 PTT ACTIV ATED PTT activated 19.6 sec 23.6-3 2.8 low Hepar in Thera peuti c Range for PTT = 52-84 secon ds New Hepar in Thera peuti c Range 06/09 Not Available [address] [place], [address] 11/18/2023 16:14:18 11/18/19 24 11/18/2023 COMPR EHENS NADEEM METAB OLIC PANEL calcium 9.0 mg/dL 8.5-10 .1 normal Not Available [address] [place], [address] 11/18/2023 16:19:21 11/18/19 24 11/18/2023 COMPR EHENS NADEEM METAB OLIC PANEL glucose 100 mg/dL 74-106 normal Not Available Ethel green [address] [place], [address] 11/18/2023 16:19:21 11/18/19 24 11/18/2023 COMPR EHENS NADEEM METAB OLIC PANEL BUN 15 mg/dL 7-18 normal Not Available Ethel green [address] [place], [address] 11/18/2023 16:19:21 11/18/19 24 11/18/2023 COMPR EHENS NADEEM METAB OLIC PANEL creatinine 1.0 mg/dL 0.55-1 .02 normal Not Available [address] [place], [address] 11/18/2023 16:19:21 11/18/19 24 11/18/2023 COMPR EHENS [...] young er-ag ed adult s. Not Available [address] [place], [address] 11/18/2023 16:19:21 11/18/19 24 11/18/2023 COMPR EHENS NADEEM METAB OLIC PANEL total protein 6.8 g/dL 6.4-8. 2 normal Not Available [address] [place], [address] 11/18/2023 16:19:21 11/18/19 24 11/18/2023 COMPR EHENS NADEEM METAB OLIC PANEL albumin 3.8 g/dL 3.4-5. 0 normal Not Available [address] [place], [address] 11/18/2023 16:19:21 11/18/19 24 11/18/2023 COMPR EHENS NADEEM METAB OLIC PANEL bilirubin, total 0.92 mg/dL 0.2-1. 0 normal Not Available [address] [place], [address] 11/18/2023 16:19:21 11/18/19 24 11/18/2023 COMPR EHENS NADEEM METAB OLIC PANEL alk phos 68 U/L 46-116 normal Not Available [address] [place], [address] 11/18/2023 16:19:21 11/18/19 24 11/18/2023 COMPR EHENS NADEEM METAB OLIC PANEL sodium 144 mmol/ L 136-14 5 normal Not Available [address] [place], [address] 11/18/2023 16:19:21 11/18/19 24 11/18/2023 COMPR EHENS NADEEM METAB OLIC PANEL potassium 3.6 mmol/ L 3.5-5. 1 normal Not Available [address] [place], [address] 11/18/2023 16:19:21 11/18/19 24 11/18/2023 COMPR EHENS NADEEM METAB OLIC PANEL chloride 106 mmol/ L 98-107 normal Not Available [address] [place], [address] 11/18/2023 16:19:21 11/18/19 24 11/18/2023 COMPR EHENS NADEEM METAB OLIC PANEL CO2 29.6 mmol/ L 21.0-3 2.0 normal Not Available [address] [place], [address] 11/18/2023 16:19:21 11/18/19 24 11/18/2023 COMPR EHENS NADEEM METAB OLIC PANEL anion gap 8.4 mmol/ L 3-11 normal Not Available [address] [place], [address] 11/18/2023 16:19:21 11/18/19 24 11/18/2023 COMPR EHENS NADEEM METAB OLIC PANEL AST 15 U/L 15-37 normal Not Available Ethel green [address] [place], [address] 11/18/2023 16:19:21 11/18/19 24 11/18/2023 COMPR EHENS NADEEM METAB OLIC PANEL ALT 16 U/L 14-59 normal Not Available Ethel green [address] [place], [address] 11/18/2023 16:19:21 11/18/19 24 11/18/2023 MAGNE SIUM magnesium 1.9 mg/dL 1.8-2. 4 normal Not Available [address] [place], [address] 11/18/2023 16:19:21 11/18/19 24 11/18/2023 LIPAS E lipase 24 U/L 16-77 normal Not Available Ethel green [address] [place], [address] 11/18/2023 16:19:22 11/18/19 24 11/18/2023 TROPO LUCIA I troponin I < 50 NG/L < or =60 Not Available [address] [place], [address] 11/18/2023 16:19:22 11/18/19 24 11/18/2023 NT-TN OBNP nt-probnp 3052 pg/mL <300 high NT-pr [...] false negat nadeem resul ts. Not Available [address] [place], [address] 11/18/2023 16:19:23 11/18/19 24 11/18/2023 TSH (W/RE F FT4) TSH (w/ref FT4) 0.49 uIU/m L 0.36-3 .74 normal Not Available [address] [place], [address] 11/18/2023 16:22:20 11/18/19 24 11/18/2023 URINA LYSIS color Yellow yellow Not Available Ethel green [address] [place], [address] 11/18/2023 19:26:06 07/17/11/18/2023 URINA LYSIS clarity Clear clear Not Available Ethel green [address] [place], [address] 11/18/2023 19:26:06 11/18/19 24 11/18/2023 URINA LYSIS specific gravity 1.015 1.005- 1.025 normal Not Available [address] [place], [address] 11/18/2023 19:26:06 11/18/19 24 11/18/2023 URINA LYSIS pH 6.5 5-8 normal Not Available Ethel green [address] [place], [address] 11/18/2023 19:26:06 11/18/19 24 11/18/2023 URINA LYSIS leukocyte esterase Small negati ve abnormal Not Available [address] [place], [address] 11/18/2023 19:26:06 11/18/19 24 11/18/2023 URINA LYSIS nitrite Negati ve negati ve Not Available [address] [place], [address] 11/18/2023 19:26:06 11/18/19 24 11/18/2023 URINA LYSIS protein Negati ve mg/dL neg-tr patrick Not Available [address] [place], [address] 11/18/2023 19:26:06 11/18/19 24 11/18/2023 URINA LYSIS glucose Negati ve mg/dL negati ve Not Available [address] [place], [address] 11/18/2023 19:26:06 11/18/19 24 11/18/2023 URINA LYSIS ketones Negati ve mg/dL negati ve Not Available [address] [place], [address] 11/18/2023 19:26:06 11/18/19 24 11/18/2023 URINA LYSIS urobilinogen 0.2 mg/dL up to 0.2 Not Available [address] [place], [address] 11/18/2023 19:26:06 11/18/19 24 11/18/2023 URINA LYSIS bilirubin Negati ve negati ve Not Available [address] [place], [address] 11/18/2023 19:26:06 11/18/19 24 11/18/2023 URINA LYSIS blood Negati ve negati ve Not Available [address] [place], [address] 11/18/2023 19:26:06 11/18/19 24 11/18/2023 URINA LYSIS color Yellow yellow Not Available Ethel green [address] [place], [address] 11/18/2023 20:30:25 11/18/19 24 11/18/2023 URINA LYSIS clarity Clear clear Not Available Ethel green [address] [place], [address] 11/18/2023 20:30:25 11/18/19 24 11/18/2023 URINA LYSIS specific gravity 1.015 1.005- 1.025 normal Not Available [address] [place], [address] 11/18/2023 20:30:25 11/18/19 24 11/18/2023 URINA LYSIS pH 6.5 5-8 normal Not Available Ethel green [address] [place], [address] 11/18/2023 20:30:25 11/18/19 24 11/18/2023 URINA LYSIS leukocyte esterase Small negati ve abnormal Not Available [address] [place], [address] 11/18/2023 20:30:25 11/18/19 24 11/18/2023 URINA LYSIS nitrite Negati ve negati ve Not Available [address] [place], [address] 11/18/2023 20:30:25 11/18/19 24 11/18/2023 URINA LYSIS protein Negati ve mg/dL neg-tr patrcik Not Available [address] [place], [address] 11/18/2023 20:30:25 11/18/19 24 11/18/2023 URINA LYSIS glucose Negati ve mg/dL negati ve Not Available [address] [place], [address] 11/18/2023 20:30:25 11/18/19 24 11/18/2023 URINA LYSIS ketones Negati ve mg/dL negati ve Not Available [address] [place], [address] 11/18/2023 20:30:25 11/18/19 24 11/18/2023 URINA LYSIS urobilinogen 0.2 mg/dL up to 0.2 Not Available [address] [place], [address] 11/18/2023 20:30:25 11/18/19 24 11/18/2023 URINA LYSIS bilirubin Negati ve negati ve Not Available [address] [place], [address] 11/18/2023 20:30:25 11/18/19 24 11/18/2023 URINA LYSIS blood Negati ve negati ve Not Available [address] [place], [address] 11/18/2023 20:30:25 11/18/19 24 11/18/2023 MICRO SCOPI C FINDI NGS WBC 3-5 hpf 0-5 Not Available Ethel green [address] [place], [address] 11/18/2023 20:30:25 11/18/19 24 11/18/2023 MICRO SCOPI C FINDI NGS RBC Negati ve hpf 0-2 Not Available Joel smith [address] [place], [address] 11/18/2023 20:30:25 11/18/19 24 11/18/2023 MICRO SCOPI C FINDI NGS epithelial cells Many hpf negati ve Not Available [address] [place], [address] 11/18/2023 20:30:25 11/18/19 24 11/18/2023 MICRO SCOPI C FINDI NGS bacteria Few hpf negati ve Not Available [address] [place], [address] 11/18/2023 20:30:25 11/18/19 24 11/18/2023 MICRO SCOPI C FINDI NGS crystals Negati ve hpf negati ve Not Available [address] [place], [address] 11/18/2023 20:30:25 11/18/19 24 11/18/2023 MICRO SCOPI C FINDI NGS mucus Trace negati ve Not Available [address] [place], [address] 11/18/2023 20:30:25 11/18/19 24 11/18/2023 MICRO SCOPI C FINDI NGS C S indicated? No Not Available [address] [place], [address] 11/18/2023 20:30:25 11/18/19 24 11/18/2023 TROPO LUCIA I troponin I < 50 NG/L < or =60 Not Available [address] [place], [address] 11/18/2023 22:25:47 11/18/19 24 11/18/2023 VENOU S BLOOD GAS pH (venous) 7.45 7.31-7 .41 high Not Available [address] [place], [address] 11/18/2023 23:12:54 11/18/19 24 11/18/2023 VENOU S BLOOD GAS pCO2 (venous) 44 mmHg 41-51 normal Not Available [address] [place], [address] 11/18/2023 23:12:54 11/18/19 24 11/18/2023 VENOU S BLOOD GAS pO2 (venous) 37 mmHg Not Available [address] [place] [place], [address] 11/18/2023 23:12:54 11/18/19 24 11/18/2023 VENOU S BLOOD GAS TCO2 (venous) 28 mmol/ L 24-29 normal Not Available [address] [place], [address] 11/18/2023 23:12:54 11/18/19 24 11/18/2023 VENOU S BLOOD GAS HCO3 (venous) 30 mmol/ L 23-28 high Not Available [address] [place], [address] 11/18/2023 23:12:54 11/18/19 24 11/18/2023 VENOU S BLOOD GAS BE (venous) 6 mmol/ L -2-3 high Not Available [address] [place], [address] 11/18/2023 23:12:54 11/18/19 24 11/18/2023 VENOU S BLOOD GAS O2 sat (venous) 74 % Not Available Ariela avitia [address] [place], [address] 11/18/2023 23:12:54 11/19/19 24 11/19/2023 COMPL ETE BLOOD COUNT W/DIF F WBC 7.07 10_3/ uL 4.4-10 .8 normal Not Available [address] [place], [address] 11/19/2023 07:03:22 11/19/19 24 11/19/2023 COMPL ETE BLOOD COUNT W/DIF F RBC 2.93 10_6/ uL 3.93-5 .22 low Not Available [address] [place], [address] 11/19/2023 07:03:22 11/19/19 24 11/19/2023 COMPL ETE BLOOD COUNT W/DIF F HGB 9.8 g/dL 11.2-1 5.7 low Not Available [address] [place], [address] 11/19/2023 07:03:22 11/19/19 24 11/19/2023 COMPL ETE BLOOD COUNT W/DIF F HCT 30.5 % 36.0-4 6.0 low Not Available [address] [place], [address] 11/19/2023 07:03:22 11/19/19 24 11/19/2023 COMPL ETE BLOOD COUNT W/DIF F MCV 104 fL 80-95 high Not Available Ethel green [address] [place], [address] 11/19/2023 07:03:22 11/19/19 24 11/19/2023 COMPL ETE BLOOD COUNT W/DIF F MCH 33.4 pg 27.0-3 3.0 high Not Available [address] [place], [address] 11/19/2023 07:03:22 11/19/19 24 11/19/2023 COMPL ETE BLOOD COUNT W/DIF F MCHC 32.1 % 32.0-3 6.0 normal Not Available [address] [place], [address] 11/19/2023 07:03:22 11/19/19 24 11/19/2023 COMPL ETE BLOOD COUNT W/DIF F RDW 14.4 % 11.7-1 4.6 normal Not Available [address] [place], [address] 11/19/2023 07:03:22 11/19/19 24 11/19/2023 COMPL ETE BLOOD COUNT W/DIF F platelet count 112 10_3/ uL 130-40 0 low Not Available [address] [place], [address] 11/19/2023 07:03:22 11/19/19 24 11/19/2023 COMPL ETE BLOOD COUNT W/DIF F MPV 10.8 fL 8.0-11 .0 normal Not Available [address] [place], [address] 11/19/2023 07:03:22 11/19/19 24 11/19/2023 COMPL ETE BLOOD COUNT W/DIF F neutrophils % 74.3 % Not Available [address] [place], [address] 11/19/2023 07:03:22 11/19/19 24 11/19/2023 COMPL ETE BLOOD COUNT W/DIF F lymphocytes % 14.1 % Not Available [address] [place], [address] 11/19/2023 07:03:22 11/19/19 24 11/19/2023 COMPL ETE BLOOD COUNT W/DIF F monocytes % 6.5 % Not Available [address] [place], [address] 11/19/2023 07:03:22 11/19/19 24 11/19/2023 COMPL ETE BLOOD COUNT W/DIF F eosinophils % 4.4 % Not Available [address] [place], [address] 11/19/2023 07:03:22 11/19/19 24 11/19/2023 COMPL ETE BLOOD COUNT W/DIF F basophils % 0.4 % Not Available [address] [place], [address] 11/19/2023 07:03:22 11/19/19 24 11/19/2023 COMPL ETE BLOOD COUNT W/DIF F immature grans % 0.3 % Not Available [address] [place], [address] 11/19/2023 07:03:22 11/19/19 24 11/19/2023 COMPL ETE BLOOD COUNT W/DIF F nucleated RBC 0.0 % 0.0-0. 3 normal Not Available [address] [place], [address] 11/19/2023 07:03:22 11/19/19 24 11/19/2023 COMPL ETE BLOOD COUNT W/DIF F absolute neutrophil count 5.25 10_3/ uL 1.2-6. 7 normal Not Available [address] [place], [address] 11/19/2023 07:03:22 11/19/19 24 11/19/2023 COMPL ETE BLOOD COUNT W/DIF F absolute lymphocyte count 1.00 10_3/ uL 1.2-3. 4 low Not Available [address] [place], [address] 11/19/2023 07:03:22 11/19/19 24 11/19/2023 COMPL ETE BLOOD COUNT W/DIF F absolute monocyte count 0.46 10_3/ uL 0.1-0. 8 normal Not Available [address] [place], [address] 11/19/2023 07:03:22 11/19/19 24 11/19/2023 COMPL ETE BLOOD COUNT W/DIF F absolute eosinophil count 0.31 10_3/ uL 0.0-0. 7 normal Not Available [address] [place], [address] 11/19/2023 07:03:22 11/19/19 24 11/19/2023 COMPL ETE BLOOD COUNT W/DIF F absolute basophil count 0.03 10_3/ uL 0.0-0. 2 normal Not Available [address] [place], [address] 11/19/2023 07:03:22 11/19/19 24 11/19/2023 IRON AND IBCT iron 45 ug/dL 50-170 low Not Available Ethel green [address] [place], [address] 11/19/2023 07:24:25 11/19/19 24 11/19/2023 IRON AND IBCT total iron binding capacity 284 ug/dL 250-45 0 normal Not Available [address] [place], [address] 11/19/2023 07:24:25 11/19/19 24 11/19/2023 IRON AND IBCT transferrin sat 16 % 15-50 normal Not Available Ariela avitia [address] [place], [address] 11/19/2023 07:24:25 11/19/19 24 11/19/2023 BASIC METAB OLIC PANEL calcium 8.5 mg/dL 8.5-10 .1 normal Not Available [address] [place], [address] 11/19/2023 07:49:36 11/19/19 24 11/19/2023 BASIC METAB OLIC PANEL glucose 93 mg/dL 74-106 normal Not Available Ethel green [address] [place], [address] 11/19/2023 07:49:36 11/19/19 24 11/19/2023 BASIC METAB OLIC PANEL BUN 12 mg/dL 7-18 normal Not Available Ethel green [address] [place], [address] 11/19/2023 07:49:36 11/19/19 24 11/19/2023 BASIC METAB OLIC PANEL creatinine 0.8 mg/dL 0.55-1 .02 normal Not Available [address] [place], [address] 11/19/2023 07:49:36 11/19/19 24 11/19/2023 BASIC METAB [...] young er-ag ed adult s. Not Available [address] [place], [address] 11/19/2023 07:49:36 11/19/19 24 11/19/2023 BASIC METAB OLIC PANEL sodium 147 mmol/ L 136-14 5 high Not Available [address] [place], [address] 11/19/2023 07:49:36 11/19/19 24 11/19/2023 BASIC METAB OLIC PANEL potassium 3.2 mmol/ L 3.5-5. 1 low Not Available [address] [place], [address] 11/19/2023 07:49:36 11/19/19 24 11/19/2023 BASIC METAB OLIC PANEL chloride 107 mmol/ L 98-107 normal Not Available [address] [place], [address] 11/19/2023 07:49:36 11/19/19 24 11/19/2023 BASIC METAB OLIC PANEL CO2 31.2 mmol/ L 21.0-3 2.0 normal Not Available [address] [place], [address] 11/19/2023 07:49:36 11/19/19 24 11/19/2023 BASIC METAB OLIC PANEL anion gap 8.8 mmol/ L 3-11 normal Not Available [address] [place], [address] 11/19/2023 07:49:36 11/19/19 24 11/19/2023 DANIEL TIN ferritin 169 NG/mL 8-252 normal Not Available [address] [place], [address] 11/19/2023 07:49:36 11/19/19 24 11/19/2023 MAGNE SIUM magnesium 1.8 mg/dL 1.8-2. 4 normal Not Available [address] [place], [address] 11/19/2023 07:49:37 11/19/19 24 11/19/2023 VITAM IN B12 vitamin B12 1124 pg/mL 193-98 6 high Not Available [address] [place], [address] 11/19/2023 07:49:37 11/19/19 24 11/19/2023 FOLAT E folate 19.3 NG/mL 8.6-20 .0 normal Not Available [address] [place], [address] 11/19/2023 07:49:37 11/19/19 24 11/20/2023 TRANS DANIEL N transferrin 188 mg/dL 201-35 2 abnormal Test perfo rmed or refer red by [facility] [address], [place] [address] Not Available [address] [place], [address] 11/23/2023 12:15:30 11/20/19 24 11/20/2023 BASIC METAB OLIC PANEL calcium 8.9 mg/dL 8.5-10 .1 normal Not Available [address] [place], [address] 11/20/2023 07:12:43 11/20/19 24 11/20/2023 BASIC METAB OLIC PANEL glucose 115 mg/dL 74-106 high Not Available Ethel green [address] [place], [address] 11/20/2023 07:12:43 11/20/19 24 11/20/2023 BASIC METAB OLIC PANEL BUN 19 mg/dL 7-18 high Not Available Ethel green [address] [place], [address] 11/20/2023 07:12:43 11/20/19 24 11/20/2023 BASIC METAB OLIC PANEL creatinine 1.0 mg/dL 0.55-1 .02 normal Not Available [address] [place], [address] 11/20/2023 07:12:43 11/20/19 24 11/20/2023 BASIC METAB [...] young er-ag ed adult s. Not Available [address] [place], [address] 11/20/2023 07:12:43 11/20/19 24 11/20/2023 BASIC METAB OLIC PANEL sodium 140 mmol/ L 136-14 5 normal Not Available [address] [place], [address] 11/20/2023 07:12:43 11/20/19 24 11/20/2023 BASIC METAB OLIC PANEL potassium 3.6 mmol/ L 3.5-5. 1 normal Not Available [address] [place], [address] 11/20/2023 07:12:43 11/20/19 24 11/20/2023 BASIC METAB OLIC PANEL chloride 100 mmol/ L 98-107 normal Not Available [address] [place], [address] 11/20/2023 07:12:43 11/20/19 24 11/20/2023 BASIC METAB OLIC PANEL CO2 33.2 mmol/ L 21.0-3 2.0 high Not Available [address] [place], [address] 11/20/2023 07:12:43 11/20/19 24 11/20/2023 BASIC METAB OLIC PANEL anion gap 6.8 mmol/ L 3-11 normal Not Available [address] [place], [address] 11/20/2023 07:12:43 12/02/19 24 12/02/2023 BASIC METAB OLIC PANEL calcium 9.8 mg/dL 8.5-10 .1 normal Not Available [address] [place], [address] 12/02/2023 16:25:21 12/02/19 24 12/02/2023 BASIC METAB OLIC PANEL glucose 104 mg/dL 74-106 normal Not Available Ethel green [address] [place], [address] 12/02/2023 16:25:21 12/02/19 24 12/02/2023 BASIC METAB OLIC PANEL BUN 20 mg/dL 7-18 high Not Available Ethel green [address] [place], [address] 12/02/2023 16:25:21 12/02/19 24 12/02/2023 BASIC METAB OLIC PANEL creatinine 1.1 mg/dL 0.55-1 .02 high Not Available [address] [place], [address] 12/02/2023 16:25:21 12/02/19 24 12/02/2023 BASIC METAB [...] young er-ag ed adult s. Not Available [address] [place], [address] 12/02/2023 16:25:21 12/02/19 24 12/02/2023 BASIC METAB OLIC PANEL sodium 143 mmol/ L 136-14 5 normal Not Available [address] [place], [address] 12/02/2023 16:25:21 12/02/19 24 12/02/2023 BASIC METAB OLIC PANEL potassium 4.6 mmol/ L 3.5-5. 1 normal Not Available [address] [place], [address] 12/02/2023 16:25:21 12/02/19 24 12/02/2023 BASIC METAB OLIC PANEL chloride 106 mmol/ L 98-107 normal Not Available [address] [place], [address] 12/02/2023 16:25:21 12/02/19 24 12/02/2023 BASIC METAB OLIC PANEL CO2 29.1 mmol/ L 21.0-3 2.0 normal Not Available [address] [place], [address] 12/02/2023 16:25:21 12/02/19 24 12/02/2023 BASIC METAB OLIC PANEL anion gap 7.9 mmol/ L 3-11 normal Not Available [address] [place], [address] 12/02/2023 16:25:21 12/02/19 24 12/02/2023 MAGNE SIUM magnesium 1.8 mg/dL 1.8-2. 4 normal Not Available [address] [place], [address] 12/02/2023 16:25:22 12/02/19 24 12/02/2023 NT-TN OBNP nt-probnp 2190 pg/mL <300 high NT-pr [...] false negat nadeem resul ts. Not Available [facility] (Registration ) [address] [place] [address] [place], [address], 12/02/2023 16:25:22 12/02/19 24 12/02/2023 COMPL ETE BLOOD COUNT NO DIFF WBC 7.43 10_3/ uL 4.4-10 .8 normal Not Available [address] [place], [address] 12/02/2023 16:35:23 12/02/19 24 12/02/2023 COMPL ETE BLOOD COUNT NO DIFF RBC 3.18 10_6/ uL 3.93-5 .22 low Not Available [address] [place], [address] 12/02/2023 16:35:23 12/02/19 24 12/02/2023 COMPL ETE BLOOD COUNT NO DIFF HGB 10.6 g/dL 11.2-1 5.7 low Not Available [address] [place], [address] 12/02/2023 16:35:23 12/02/19 24 12/02/2023 COMPL ETE BLOOD COUNT NO DIFF HCT 33.5 % 36.0-4 6.0 low Not Available [address] [place], [address] 12/02/2023 16:35:23 12/02/19 24 12/02/2023 COMPL ETE BLOOD COUNT NO DIFF MCV 105 fL 80-95 high 1+ macro cytos is Not Available [address] [place], [address] 12/02/2023 16:35:23 12/02/19 24 12/02/2023 COMPL ETE BLOOD COUNT NO DIFF MCH 33.3 pg 27.0-3 3.0 high Not Available [address] [place], [address] 12/02/2023 16:35:23 12/02/19 24 12/02/2023 COMPL ETE BLOOD COUNT NO DIFF MCHC 31.6 % 32.0-3 6.0 low Not Available [address] [place], [address] 12/02/2023 16:35:23 12/02/19 24 12/02/2023 COMPL ETE BLOOD COUNT NO DIFF RDW 13.3 % 11.7-1 4.6 normal Not Available [address] [place], [address] 12/02/2023 16:35:23 12/02/19 24 12/02/2023 COMPL ETE BLOOD COUNT NO DIFF platelet count 140 10_3/ uL 130-40 0 normal Not Available [address] [place], [address] 12/02/2023 16:35:23 12/02/19 24 12/02/2023 COMPL ETE BLOOD COUNT NO DIFF MPV 11.8 fL 8.0-11 .0 high Not Available [address] [place], [address] 12/02/2023 16:35:23 04/18/20 24 04/18/2024 COMPL ETE BLOOD COUNT NO DIFF WBC 6.58 10_3/ uL 4.4-10 .8 normal Not Available [address] [place], [address] 04/18/2024 15:08:25 04/18/20 24 04/18/2024 COMPL ETE BLOOD COUNT NO DIFF RBC 3.70 10_6/ uL 3.93-5 .22 low Not Available [address] [place], [address] 04/18/2024 15:08:25 04/18/20 24 04/18/2024 COMPL ETE BLOOD COUNT NO DIFF HGB 12.0 g/dL 11.2-1 5.7 normal Not Available [address] [place], [address] 04/18/2024 15:08:25 04/18/20 24 04/18/2024 COMPL ETE BLOOD COUNT NO DIFF HCT 38.0 % 36.0-4 6.0 normal Not Available [address] [place], [address] 04/18/2024 15:08:25 04/18/20 24 04/18/2024 COMPL ETE BLOOD COUNT NO DIFF MCV 103 fL 80-95 high Not Available [address] [place], [address] 04/18/2024 15:08:25 04/18/20 24 04/18/2024 COMPL ETE BLOOD COUNT NO DIFF MCH 32.4 pg 27.0-3 3.0 normal Not Available [address] [place], [address] 04/18/2024 15:08:25 04/18/20 24 04/18/2024 COMPL ETE BLOOD COUNT NO DIFF MCHC 31.6 % 32.0-3 6.0 low Not Available [address] [place], [address] 04/18/2024 15:08:25 04/18/20 24 04/18/2024 COMPL ETE BLOOD COUNT NO DIFF RDW 15.6 % 11.7-1 4.6 high Not Available [address] [place], [address] 04/18/2024 15:08:25 04/18/20 24 04/18/2024 COMPL ETE BLOOD COUNT NO DIFF platelet count 124 10_3/ uL 130-40 0 low Not Available [address] [place], [address] 04/18/2024 15:08:25 04/18/20 24 04/18/2024 COMPL ETE BLOOD COUNT NO DIFF MPV 11.2 fL 8.0-11 .0 high Not Available [address] [place], [address] 04/18/2024 15:08:25 04/18/20 24 04/18/2024 IRON AND IBCT iron 65 ug/dL 50-170 normal Not Available [facility] (Registration ) [address] [place] [address] [place], [address], 04/18/2024 16:07:17 04/18/20 24 04/18/2024 IRON AND IBCT total iron binding capacity 318 ug/dL 250-45 0 normal Not Available [facility] (Registration ) [address] [place] [address] [place], [address], 04/18/2024 16:07:17 04/18/20 24 04/18/2024 IRON AND IBCT transferrin sat 20 % 15-50 normal Not Available [facility] (Registration ) [address] [place] [address] [place], [address], 04/18/2024 16:07:17 04/18/20 24 04/18/2024 BASIC METAB OLIC PANEL calcium 9.4 mg/dL 8.5-10 .1 normal Not Available [facility] (Registration ) [address] [place] [address] [place], [address], 04/18/2024 16:09:17 04/18/20 24 04/18/2024 BASIC METAB OLIC PANEL glucose 103 mg/dL 74-106 normal Not Available [facility] (Registration ) [address] [place] [address] [place], [address], 04/18/2024 16:09:17 04/18/20 24 04/18/2024 BASIC METAB OLIC PANEL BUN 21 mg/dL 7-18 high Not Available [facility] (Registration ) [address] [place] [address] [place], [address], 04/18/2024 16:09:17 04/18/20 24 04/18/2024 BASIC METAB OLIC PANEL creatinine 1.0 mg/dL 0.55-1 .02 normal Not Available [facility] (Registration ) [address] [place] [address] [place], [address], 04/18/2024 16:09:17 04/18/20 24 04/18/2024 BASIC METAB [...] young er-ag ed adult s. Not Available [facility] (Registration ) [address] [place] [address] [place], [address], 04/18/2024 16:09:17 04/18/20 24 04/18/2024 BASIC METAB OLIC PANEL sodium 145 mmol/ L 136-14 5 normal Not Available [facility] (Registration ) [address] [place] [address] [place], [address], 04/18/2024 16:09:17 04/18/20 24 04/18/2024 BASIC METAB OLIC PANEL potassium 4.2 mmol/ L 3.5-5. 1 normal Not Available [facility] (Registration ) [address] [place] [address] [place], [address], 04/18/2024 16:09:17 04/18/20 24 04/18/2024 BASIC METAB OLIC PANEL chloride 107 mmol/ L 98-107 normal Not Available [facility] (Registration ) [address] [place] [address] [place], [address], 04/18/2024 16:09:17 04/18/20 24 04/18/2024 BASIC METAB OLIC PANEL CO2 31.4 mmol/ L 21.0-3 2.0 normal Not Available [facility] (Registration ) [address] [place] [address] [place], [address], 04/18/2024 16:09:17 04/18/20 24 04/18/2024 BASIC METAB OLIC PANEL anion gap 6.6 mmol/ L 3-11 normal Not Available [facility] (Registration ) [address] [place] [address] [place], [address], 04/18/2024 16:09:17 04/18/20 24 04/18/2024 DANIEL TIN ferritin 211 NG/mL 8-252 normal Not Available [facility] (Registration ) [address] [place] [address] [place], [address], 04/18/2024 16:09:18 04/18/20 24 04/18/2024 TSH (W/RE F FT4) TSH (w/ref FT4) 2.17 uIU/m L 0.36-3 .74 normal NOTE: Supra -phys iolog ic doses of Bioti n(B7) may cause false negat nadeem resul ts. Not Available [facility] (Registration ) [address] [place] [address] [place], [address], 04/18/2024 16:09:18 04/18/20 24 04/18/2024 VITAM IN D 25 TOTAL vitamin D 25 total 63.9 NG/mL 30-100 normal Refer ence Guide lines : Defic ient: <10 ng/ml Insuf ficie nt: 10-30 ng/ml Suffi cient : 30-10 0 ng/ml Toxic : >100 ng/ml Not Available [address] [place], [address] 04/18/2024 16:09:19 04/18/20 24 04/18/2024 HEMOG LOBIN [...] pleme nt 1):S1 3-s28 . Not Available [facility] (Registration ) [address] , [place], [address], 04/18/2024 16:21:24 10/14/19 24 10/14/2023 elect rocar diogr am No observ ation record ed. [facility] [address] , [place], [address], 10/14/2023 11:56:20 10/14/19 24 elect rocar diogr am No observ ation record ed. Not Available 2023 10:55:07 11/04/19 24 10/14/2023 rhyth m strip , EKG* No observ ation record ed. [email or web address] Not Available 2023 10:18:08 11/18/19 24 11/18/2023 US, duple x, lower extre mity Patien t Name: Rema Olson Unit #: [id number] Loc: ER Sonal ng Provid er: Braydon Doyle Accoun t #: [id number] Status : REG ER Primar y Care [facility] er: Erich Her M.D. Date [...] tation , and color Dopple r. The content management specialist ior tibial veins are patent . IMPRES [...] error, please notify us immedi ately at [phone] and return the origin al report to us at the addres s above. Thank- you. [facility] [address], [place], [address] 11/18/2023 16:48:49 11/18/19 24 11/18/2023 CT imagi martin hackett Name: Rema Olson Unit #: [id number] Loc: ER Sonal salazar Provid er: Braydon Doyle Accoun t #: [id number] Status : REG ER Primar y Care [...] interl obular septal thicke jama greate r content management specialist iorly which could indica te mild CHF. No consol idatio n or domina nt measur able mass. Pleura : Small left pleura l effusi on. Heart: The heart is modera tely dilate d. Teller Coordinator ior perica rdial effusi on. Minima l [...] . Small perica rdial effusi on seen content management specialist iorly. Small left pleura l effusi on. [...] at the addres s above. Thank- you. [facility] [address], [place], [address] 11/19/2023 12:12:11 11/19/19 24 11/19/2023 ultra sound imagi martin hackett Name: Rema Olson Unit #: [id number] Loc: MS Sonal salazar Provid er: Huseyin Bolaños M.D. Accoun t #: [id number] Status : ADM IN Primar y [facility] er: Erich Her M.D. Date of Exam: [...] error, please notify us immphilomenai zayly at [phone] and return the origin al report to us at the addres s above. Thank- you. [place] [address] [place], [address] 11/19/2023 12:12:11 01/18/20 24 11/15/2018 imagi ng/di [...] humeral fracture 2023- MD [address], [place], [address] , [facility] 4 17:34:10 Hypothyr oidism 89482467 Active 1959 EVIE shaw, [facility] 4 10:29:59 [facility] hyperten jason 76327570 Active 1959 EVIE shaw, [facility] 4 10:29:36 Hyperlip idemia 19927189 Active 1959 on statin MD [address], [place], [address] , [facility] 4 20:35:18 Spinal stenosis of lumbar region 29866115 Active 2012 s/p lumbar foramino [place] L4 MD [address], [place], [address] , [facility] 4 20:36:41 Sleep apnea 27713799 Active 2012 on CPAP MD [address], [place], [address] , [facility] 4 20:39:31 Gastroes ophageal reflux disease without esophagi tis 793793389 Completed 195908/12/2023 Removal Reason: resolved with surgical repair of HH MD [address], [place], [address] , [facility] 4 10:41:24 Family history of malignan t neoplasm of digestiv e organ 811518275 Active [address], [place], [address] , [facility] 4 20:37:03 Paresthe samir [id number] Completed 201412/01/2014 11/28/19 15 - Comments only - Erich Her MD - check B12 and folate Problem Code: R20.2; Problem Code Type: ICD-10; Not Available [facility] 3 05:53:48 Adult health examinat ion Active [address], [place], [address] , [facility] 4 20:33:34 Pre-surg ruben evaluati [...] Z01.818; Problem Code Type: ICD-10; Not Available [facility] 3 05:53:48 Localize d edema 496811851 Completed 201501/29/2016 12/13/19 16 - Comments only - Erich Her MD - and some on left as well, will check BMP. 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 Nusrat esparza for removal. Problem Code: L72.3; Problem Code Type: ICD-10; Not Available [facility] 3 05:53:49 Chronic ulcer of foot [id number] Completed 201601/16/2017 12/18/19 17 - Comments only - Erich Her MD - Due to injury. This does appear to have some granulat ion tissue and to be healing. She is given a prescrip tion for Keflex to take only if erythema seems to be extendin g. Problem Code: L97.509; Problem Code Type: ICD-10; Not Available [facility] 3 05:53:49 Diarrhea [id number] Completed 201602/10/2017 02/05/20 17 - Comments only - Erich Her MD - [facility] over several months, we will collect stool for C. 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 6 mm PT1NO E2P2 poistive , HER2 negative MD [address], [place], [address] , [facility] 4 20:38:49 Pain in left lower limb 259385433 Active 2016 EVIE shaw, [facility] 4 10:32:00 Pain in thoracic spine 705860910 Active 2016 EVIE shaw, [facility] 4 10:32:06 Spasm 84828962 Active 2017 EVIE shaw, [facility] 4 10:33:28 Abdomina l distensi on, gaseous 572994592 Completed 201703/08/2018 Problem Code: R14.0; Problem Code Type: ICD-10; Not Available [facility] 3 05:53:50 Cellulit is of toe 52813458 Completed 201808/12/2018 Problem Code: L03.039; Problem Code Type: ICD-10; Not Available [facility] 3 05:53:51 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. 4 14:36:02 Tachsrinivas lea 8855247 Completed 201811/25/2018 Problem Code: R00.0; Problem Code Type: ICD-10; Not Available [facility] 3 05:53:51 Pre-surg ruben evaluati on Completed 201811/25/2018 Problem Code: Z01.818; Problem Code Type: ICD-10; Not Available [facility] 3 05:53:51 Iron deficien cy anemia 79569770 Active 2019 elevated MCV: normal B12 2021, normal folate 2018 IV iron 2023 EGD 01/2022 paraesop hageal hernia (since repaired ) colo 03/2017 normal ERICH HER MD [facility] [address], [place], [address] , [facility], [facility]. 4 11:44:45 Lumbago with sciatica 066870092 Completed 201903/16/2020 02/24/20 20 - Comments only - Vy Pinon [employer] - Likely aggravat ed by increase d [...] Code Type: ICD-10; Not Available [facility] 3 05:53:52 Right side sciatica 87639799698 9101 Active 2019 EVIE HOOPER colin, [facility] 4 10:33:09 Left side sciatica 10854422857 9104 Active [address], [facility] [address] , [facility] 4 17:20:20 Diaphrag matic hernia 61150062 Completed 202108/11/2023 Removal Reason: s/p repair MD [address], [facility] [address] , [facility] 4 20:50:39 History of SARS-CoV -2 91201859703 8754687 Completed 202104/04/2022 03/21/20 22 - Comments only - Erich Her MD - testing is negative today in the office. Still some fatigue but otherwis e recoveri ng. Did get MAB. Already had covid bivalent booster prior to illness Problem Code: Z86.16; Problem Code Type: ICD-10; Not Available [facility] 3 05:53:53 Diarrhea 65366110 Completed 202104/18/2022 Problem Code: R19.7; Problem Code Type: ICD-10; MD [address], [facility] [address] , [facility] 4 21:03:02 Screenin g mammogra phy Completed 202208/11/[address], [facility] [address] , [facility] 4 20:36:56 Carpal tunnel syndrome of left wrist 44385286348 9102 Completed 202201/23/2023 Problem Code: G56.02; Problem Code Type: ICD-10; Not Available [facility] 4 05:37:46 Diarrhea 90919501 Active 2022 started colestip ol 01/2023 ERICH HER MD [address], [place], [address] , [facility]. 4 21:03:02 Carpal tunnel syndrome of right wrist 53265275179 9108 Completed 201803/19/2020 Problem Code: G56.01; Problem Code Type: ICD-10; Not Available [facility] 3 05:53:55 Pain of left knee joint 68289860727 4107 Completed 202107/30/2022 Problem Code: M25.562; Problem Code Type: ICD-10; Not Available [facility] 3 05:53:55 Hypersom korina 55745497 Completed 201311/27/2014 Problem Code: 780.54; Problem Code Type: ICD-9; Not Available [facility] 3 05:53:56 Screenin g for disorder Completed 201909/11/2021 Problem Code: Z13.9; Problem Code Type: ICD-10; Not Available [facility] 3 05:53:56 Anemia 239403159 Completed 201903/19/2020 Problem Code: D64.9; Problem Code Type: ICD-10; Not Available [facility] 3 05:53:56 Long-ter m current use of anticoag ulant 648755030 Completed 201709/01/2018 Problem Code: Z79.01; Problem Code Type: ICD-10; Not Available [facility] 3 05:53:57 Chronic rhinitis 53950755 Completed 202108/12/2021 Problem Code: J31.0; Problem Code Type: ICD-10; Not Available [facility] 3 05:53:57 Impaired fasting glycemia 024905702 Completed 201401/28/2023 Not Available [facility] 3 05:53:57 Fatigue 99016094 Completed 201903/19/2020 Problem Code: R53.83; Problem Code Type: ICD-10; Not Available [facility] 3 05:53:58 Upper respirat ory tract infectio n caused by Influenz a A 30723026740 9104 Completed 201707/02/2017 Problem Code: J09.x2; Problem Code Type: ICD-10; Not Available [facility] 3 05:53:59 Diarrhea 31730298 Completed 201709/01/2018 ERICH HER MD [facility] [address], [place], [address] [facility] 4 21:03:02 Acute upper respirat ory infectio n 41477250 Completed 202108/26/2021 Problem Code: J06.9; Problem Code Type: ICD-10; Not Available [facility] 3 05:53:59 Pain in right foot 08651396445 9107 Completed 202207/30/2022 Problem Code: M79.671; Problem Code Type: ICD-10; Not Available [facility] 3 05:54:00 Breast composit ion 562693256 Completed 201601/28/2023 Not Available [facility] 3 05:54:00 Changes in skin texture 708349695 Completed 202207/30/2022 Problem Code: R23.4; Problem Code Type: ICD-10; Not Available [facility] 3 05:54:01 Spasm 75423527 Completed 201603/23/2017 Problem Code: R25.2; Problem Code Type: ICD-10; EVIE shaw [facility] 4 10:33:28 Hyperten sive disorder 19430891 Completed 11/28/19 15 - Comments only - Erich Her MD - [facility] ed, no change in medicati ons Not Available [facility] 3 05:54:03 Arthralg ia of the ankle and/or foot 957757714 Completed 201501/30/2016 Problem Code: M25.571; Problem Code Type: ICD-10; Not Available [facility] 3 05:54:03 Dyspnea 401459842 Completed 201903/19/2020 Problem Code: R06.02; Problem Code Type: ICD-10; [facility] 4 14:39:47 Trigger finger of right hand 76794557137 380586 Completed 201803/19/2020 Problem Code: M65.341; Problem Code Type: ICD-10; Not Available [facility] 3 05:54:06 Cough 60225840 Completed 202108/12/2021 Problem Code: R05.1; Problem Code Type: ICD-10; Not Available [facility] 3 05:54:06 At risk - finding 231558879 Completed 201811/11/2018 Problem Code: Z91.89; Problem Code Type: ICD-10; Not Available [facility] 3 05:54:06 Cough 95037238 Completed 201706/15/2017 Problem Code: R05; Problem Code Type: ICD-10; Not Available [facility] 3 05:54:07 Preopera tive cardiova scular examinat ion Completed 202112/18/2021 Problem Code: Z01.810; Problem Code Type: ICD-10; Not Available [facility] 3 05:54:08 Arterial bruit 04197158 Completed 202109/11/2021 Not Available [facility] 3 05:54:08 Gastroes ophageal reflux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
--- OUTSIDE RECORDS SUMMARY | 2024-05-23 10:30 | XMS_ITS | Continuity of Care Document ---
Author Organization [facility], [facility] [place] [address] Care Team Providers Care Banker Mason Name Role Phone GABINODC Band Aid Machine Operator [facility] Orthopedic Surgeon [phone] [facility] Sleep Medicine [facility] Commercial Subcontractor Assessment Encounter Date Assessment Date Assessment LastModified by Organization Details LastModified Time 03/04/2024 03/04/2024 The total time devoted to today's encounter, including both the haov-jx-ouui time with the patient and/or family/caregi josefina and mqp-zjer-rh-f patrick time I personally spent is 44 minutes. Not available 03/04/2024 17:47:18 Plan of Treatment Reminders Order Date Submit Date Provider Last Modified By Organization Details Last Modified Time Details Appointments Follow Up 2024 01:20P Allan Her Not available Not available Not available Lab BMP, serum or plasma 2023 024 [facility] (Registration ), [facility] [facility] [place], [address], 04/19/2024 11:42:49 vitamin D, 25-hydrox y, total, serum 2023 024 [facility] (Registration ), [address] [facility] [place], [address], 04/18/2024 16:09:19 HbA1c (hemoglob in A1c), blood 2023 [facility] (Registration ), [address] [place] [address] [place], [address], 04/19/2024 11:39:49 TSH, serum, reflex free T4 2023 024 [facility] (Registration ), [address] [place] [address] [place], [address], 04/19/2024 11:40:25 CBC 2023 [facility] (Registration ), [address] [place] [address] [place], [address], 04/18/2024 15:08:25 ferritin, serum or plasma 2023 [facility] (Registration ), [address] [place] [address] [place], [address], 04/19/2024 11:41:22 iron + total iron-bind ing capacity (TIBC), serum 2023 [facility] (Registration ), [address] [place] [address] [place], [address], 04/19/2024 11:43:17 Referral None recorded. Procedures None recorded. Surgeries None recorded. Imaging None recorded. Medication Orders hydromorp ricky 2 mg tablet 2023 024 [facility], [address] [place], [address], 03/04/2024 15:12:30 levothyro xine 75 mcg tablet 2023 024 [email or web address], [address] [place], [address], 03/04/2024 16:32:19 Patient TargetsNo targets recorded. Patient InstructionsNo instructions recorded. 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 None Reported. Problems Name Problem SNOMED Code Status Onset Date Resolution Date Notes Provider Name and Address Organization Details Recorded Time Osteopor otic fracture Active 2023 Zoledron ate started at time of humeral fracture 2023- MD [address], [place], [address] , [facility] 4 17:34:10 Hypothyr oidism 69268551 Active 1959 EVIE shaw, [facility] 4 10:29:59 Essentia l hyperten jason 14896706 Active 1959 EVIE shaw, [facility] 4 10:29:36 Hyperlip idemia 71293446 Active 1959 on statin MD [address], [place], [address] , [facility] 4 20:35:18 Spinal stenosis of lumbar region 59690669 Active 2012 s/p lumbar foramino parsih L4 MD [address], [place], [address] , [facility] 4 20:36:41 Sleep apnea 23619457 Active 2012 on CPAP MD [address], [place], [address] , [facility] 4 20:39:31 Gastroes ophageal reflux disease without esophagi tis 667086698 Completed 195908/12/2023 Removal Reason: resolved with surgical repair of HH MD [address], [place], [address] , [facility] 4 10:41:24 Family history of malignan t neoplasm of digestiv e organ 487043531 Active [address], [place], [address] , [facility] 4 20:37:03 Paresthe samir 58000157 Completed 201412/01/2014 11/28/19 15 - Comments only - Ana Her MD - check B12 and folate Problem Code: R20.2; Problem Code Type: ICD-10; Not Available Critical access hospital 3 05:53:48 Adult health examinat ion Active [address], [place], [address] , [facility] 4 20:33:34 Pre-surg ruben evaluati [...] Z01.818; Problem Code Type: ICD-10; Not Available Critical access hospital 3 05:53:48 Localize d edema 442360136 Completed 201501/29/2016 12/13/19 16 - Comments only - Ana Her MD - and some on left as well, will check BMP. 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 Nusrat esparza for removal. Problem Code: L72.3; Problem Code Type: ICD-10; Not Available Critical access hospital 3 05:53:49 Chronic ulcer of foot 145796752 Completed 201601/16/2017 12/18/19 17 - Comments only - Ana Her MD - Due to injury. This does appear to have some granulat ion tissue and to be healing. She is given a prescrip tion for Keflex to take only if erythema seems to be extendin g. Problem Code: L97.509; Problem Code Type: ICD-10; Not Available Critical access hospital 3 05:53:49 Diarrhea 25108896 Completed 201602/10/2017 02/05/20 17 - Comments only - Ana Her MD - Persiste nt over several months, we will collect stool for C. difficil e, Giardia, culture, and lactofer rin Problem Code: R19.7; Problem Code Type: ICD-10; MD [address], [place], [address] , [facility] 4 21:03:03 Polyp of cervix 91306393 Active 2016 EVIE shaw, [place] - [facility]. 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 6 mm PT1NO E2P2 poistive , HER2 negative MD [address], [place], [address] , [facility] 4 20:38:49 Pain in left lower limb 962085335 Active 2016 EVIE shaw, [facility]. 4 10:32:00 Pain in thoracic spine 102750041 Active 2016 EVIE shaw, [facility]. 4 10:32:06 Spasm 28499885 [facility] 2017 [facility] 4 10:33:28 Abdomina l distensi on, gaseous 617879125 Completed 201703/08/2018 Problem Code: R14.0; Problem Code Type: ICD-10; Not Available Critical access hospital 3 05:53:50 Cellulit is of toe 71564116 Completed 201808/12/2018 Problem Code: L03.039; Problem Code Type: ICD-10; Not Available Critical access hospital 3 05:53:51 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 2018 Danica shaw, [facility]. 4 14:36:02 Tachycar lea 0173925 Completed 201811/25/2018 Problem Code: R00.0; Problem Code Type: ICD-10; Not Available [facility] 3 05:53:51 Pre-surg ruben evaluati on Completed 201811/25/2018 Problem Code: Z01.818; Problem Code Type: ICD-10; Not Available Critical access hospital 3 05:53:51 Iron deficien cy anemia 02242022 Active 2019 elevated MCV: normal B12 2021, normal folate 2018 IV iron 2023 EGD 01/2022 paraesop hageal hernia (since repaired ) colo 03/2017 normal ANA HER MD [address], [place], [address] , [facility] 4 11:44:45 Lumbago with sciatica 747046181 Completed 201903/16/2020 02/24/20 20 - Comments only - Vy Pinon RECONSTRUCTIVE DENTIST - Likely aggravat ed by increase d [...] access hospital 3 05:53:52 Right side sciatica 50095360372 9101 Active 2019 EVIE shaw, [facility] 4 10:33:09 Left side sciatica 78841171745 9104 Active [address], [place], [address] , [facility] 4 17:20:20 Diaphrag matic hernia 61510764 Completed 202108/11/2023 Removal Reason: s/p repair MD [address], [place], [address] , [facility] 4 20:50:39 History of SARS-CoV -2 83751959640 0833690 Completed 202104/04/2022 03/21/20 22 - Comments only - Ana Her MD - testing is negative today in the office. Still some fatigue but otherwis e recoveri ng. Did get MAB. Already had covid bivalent booster prior to illness Problem Code: Z86.16; Problem Code Type: ICD-10; Not Available Critical access hospital 3 05:53:53 Diarrhea 32341482 Completed 202104/18/2022 Problem Code: R19.7; Problem Code Type: ICD-10; MD [address], [place] [address] , [facility] 4 21:03:02 Screenin g mammogra phy Completed 202208/11/[address], [place] [address] , [facility] 4 20:36:56 Carpal tunnel syndrome of left wrist 99361903904 9102 Completed 202201/23/2023 Problem Code: G56.02; Problem Code Type: ICD-10; Not Available Critical access hospital 4 05:37:46 Diarrhea 95027923 Active 2022 started colestip ol 01/[address], [place] [address] , [facility] 4 21:03:02 Carpal tunnel syndrome of right wrist 99952225493 9108 Completed 201803/19/2020 Problem Code: G56.01; Problem Code Type: ICD-10; Not Available Critical access hospital 3 05:53:55 Pain of left knee joint 30484737820 4107 Completed 202107/30/2022 Problem Code: M25.562; Problem Code Type: ICD-10; Not Available [facility] 3 05:53:55 Hypersom korina 72291853 Completed 201311/27/2014 Problem Code: 780.54; Problem Code Type: ICD-9; Not Available [facility] 3 05:53:56 Screenin g for disorder Completed 201909/11/2021 Problem Code: Z13.9; Problem Code Type: ICD-10; Not Available Critical access hospital 3 05:53:56 Anemia 761981235 Completed 201903/19/2020 Problem Code: D64.9; Problem Code Type: ICD-10; Not Available [facility] 3 05:53:56 Long-ter m current use of anticoag ulant 934016911 Completed 201709/01/2018 Problem Code: Z79.01; Problem Code Type: ICD-10; Not Available Critical access hospital 3 05:53:57 Chronic rhinitis 31447997 Completed 202108/12/2021 Problem Code: J31.0; Problem Code Type: ICD-10; Not Available Critical access hospital 3 05:53:57 Impaired fasting glycemia 497835285 Completed 201401/28/2023 Not Available Critical access hospital 3 05:53:57 Fatigue 21790215 Completed 201903/19/2020 Problem Code: R53.83; Problem Code Type: ICD-10; Not Available Critical access hospital 3 05:53:58 Upper respirat ory tract infectio n caused by Influenz a A 25759429139 9104 Completed 201707/02/2017 Problem Code: J09.x2; Problem Code Type: ICD-10; Not Available Critical access hospital 3 05:53:59 Diarrhea 85047762 Completed 201709/01/2018 ANA HER MD [address], [place], [address] , [facility]. 4 21:03:02 Acute upper respirat ory infectio n 93510164 Completed 202108/26/2021 Problem Code: J06.9; Problem Code Type: ICD-10; Not Available Critical access hospital 3 05:53:59 Pain in right foot 81519659681 9107 Completed 202207/30/2022 Problem Code: M79.671; Problem Code Type: ICD-10; Not Available Critical access hospital 3 05:54:00 Breast composit ion 427377496 Completed 201601/28/2023 Not Available Critical access hospital 3 05:54:00 Changes in skin texture 600248778 Completed 202207/30/2022 Problem Code: R23.4; Problem Code Type: ICD-10; Not Available Critical access hospital 3 05:54:01 Spasm 80687007 Completed 201603/23/2017 Problem Code: R25.2; Problem Code Type: ICD-10; EVIE RUFUS [facility], [facility] 4 10:33:28 Hyperten sive disorder 26372678 Completed 11/28/19 15 - Comments only - Ana Her MD - [facility] ed, no change in medicati ons Not Available Critical access hospital 3 05:54:03 Arthralg ia of the ankle and/or foot 545015006 Completed 201501/30/2016 Problem Code: M25.571; Problem Code Type: ICD-10; Not Available Critical access hospital 3 05:54:03 Dyspnea 422471879 Completed 201903/19/2020 Problem Code: R06.02; Problem Code Type: ICD-10; Danica Felix colin, [facility] 4 14:39:47 Trigger finger of right hand 28032876923 779759 Completed 201803/19/2020 Problem Code: M65.341; Problem Code Type: ICD-10; Not Available Critical access hospital 3 05:54:06 Cough 02843487 Completed 202108/12/2021 Problem Code: R05.1; Problem Code Type: ICD-10; Not Available Critical access hospital 3 05:54:06 At risk - finding 382521261 Completed 201811/11/2018 Problem Code: Z91.89; Problem Code Type: ICD-10; Not Available Critical access hospital 3 05:54:06 Cough 47664009 Completed 201706/15/2017 Problem Code: R05; Problem Code Type: ICD-10; Not Available Critical access hospital 3 05:54:07 Preopera tive cardiova scular examinat ion Completed 202112/18/2021 Problem Code: Z01.810; Problem Code Type: ICD-10; Not Available [facility] 3 05:54:08 Arterial bruit 14887215 Completed 202109/11/2021 Not Available Critical access hospital 3 05:54:08 Gastroes ophageal reflux disease 729735028 Completed Not Available Critical access hospital 3 05:54:09 Imaging of musculos keletal system abnormal 084834089 Completed 201603/23/2017 Problem Code: R93.7; Problem Code Type: ICD-10; Not Available Critical access hospital 3 05:54:10 Blood glucose outside referenc e range 024057227 Completed 201503/20/2016 Problem Code: R73.09; Problem Code Type: ICD-10; Not Available Critical access hospital 3 05:54:10 Abdomina l aortic aneurysm 348902819 Completed 195912/04/2014 Not Available Critical access hospital 3 05:54:11 Lung field abnormal 561995349 Completed 202109/11/2021 Problem Code: R91.8; Problem Code Type: ICD-10; Not Available Critical access hospital 3 05:54:11 Ingrowin g nail 636151135 Completed 201503/23/2017 Problem Code: L60.0; Problem Code Type: ICD-10; Not Available Critical access hospital 3 05:54:11 Hypokale karyn 85470384 Completed 201504/17/2016 Problem Code: E87.6; Problem Code Type: ICD-10; Not Available Critical access hospital 3 05:54:12 Spasm 41300932 Completed 202201/23/2023 Problem Code: M62.838; Problem Code Type: ICD-10; EVIE shaw [facility] 4 10:33:28 Aneurysm of ascendin g aorta 824300923 Active [address], [place] [address] , [facility] 4 19:24:51 Bicuspid aortic valve 47040160 Active 2023 severe by ECHO 07/[address], [place] [address] , [facility] 4 19:33:10 Osteopen ia 625447340 Active 2023 EVIE shaw, [facility] 4 10:28:13 Venous stasis 47982195 Active 2023 EVIE shaw, [facility] 4 10:29:14 Chronic kidney disease 069443507 Active 2017 Stage 3bA1v eGFR 42-[address], [place] [address] , [facility] 4 20:49:29 Dyspnea on exertion 31286096 Active 2018 Danica shaw, [facility] 4 14:39:44 Hiatal hernia 11406413 Completed 202108/11/2023 lap repair MD Young [address], [facility] [address] , [facility] 4 20:51:15 Edema of lower extremit y 443833753 Active [address], [facility] [address] , [facility] 4 20:55:49 Atrial fibrilla tion 43797923 Active 2016 s/p pulmonoa ry vein isolatio n 05/2018, chronic anticoag ulation with Xarelto MD [address], [address] [place] [address] 4 09:14:08 Obesity 794999307 Active [address], [address] 4 09:26:22 Cardiac pacemake r in situ 463220046 Active 2023 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 MD Young [address], [address] 4 09:13:49 Swelling of bilatera l lower limbs 657827255 Active [address], [address] 14:35:13 Problem Notes None recorded. Procedures Surgical History Date Name Laterality Status Provider Name and Address Organization Details Recorded Time 10/26/19 cardiac pacemaker procedure completed MD Young [address] Dr, [address] 03/16/2024 16:33:27 10/20/19 24 transcatheter aortic valve implantation completed MD Young [address], [address] 03/16/2024 16:32:53 Imaging Results None recorded. Procedure Notes None recorded. Medical Equipment None Reported. Allergies Allergen ID Allergen Name Allergen Category Reaction Reaction Severity Criticality Documentation Date Start Date Code Code System Note Provider Name and Address Organization Details Recorded Time 73719 amlodipin e medicatio n swelling severe high 11/18/2023 63029 RxNorm Shaneka Herrera MA null, [facility] 13:47:28 Medications Name Sig Start Date [...] tab by mouth daily 06/02 [facility] Not Available Not Available Not Available [...] needed for spasms 10/15 completed [facility] [place] Not Available Not Available Not Available Lamisil [...] 1 tab by mouth daily 2013 active [facility] Not Available Not Available Not Available gabapenti n 100 mg capsule Take 1 cap by mouth three times daily 2015 active Not Available Not Available Not Avai lable metoprolo l succinate ER 25 mg tablet,ex tended release 24 hr Take 1 tab by mouth daily 2017 active [facility] Not Available Not Available Not Available [...] Updated DateTime 4 164.34 cm 29.1 kg/m2 97373.4 8 g 97.7 [degF] 96 % 96 % 104 /min 18 /min 120 mm[Hg] 74 mm[Hg] KRYSTAL SKELTON LPN [facility] 14:18:40 Social History Question Answer Notes LastModified by Organizat ion Details LastModified Time Tobacco Smoking Status Never Smoker KRYSTAL SKELTON LPN [facility] 08/12/2023 07:44:55 Date Of Most Recent [...] Wanted Help? (For Example, If You [place] Very Nervous, Lonely, Or Blue; Got Sick [...] Details Recorded Time Pneumococcal conjugate PCV20, polysaccharide TOK117 conjugate, adjuvant, PF 4 completed MD [address], [address] 08/12/2023 11:52:18 COVID-19, mRNA, LNP-S, PF, vanda-sucrose, 30 mcg/0.3 mL 4 completed MD [address], [address] 08/12/2023 11:52:18 COVID-19, mRNA, LNP-S, PF, vanda-sucrose, 30 mcg/0.3 mL 4 completed MD [address], [address] 03/04/2024 15:04:49 Tdap 1 completed Not Available Critical access hospital 03/13/2023 06:18:37 Tdap 1 completed Not Available Critical access hospital 03/13/2023 06:18:37 zoster live 5 completed Not Available [facility] 03/13/2023 06:18:37 Influenza, high-dose, trivalent, PF 8 completed Not Available [facility] 03/13/2023 06:18:38 Influenza, split virus, trivalent, preservative 6 completed Not Available [facility] 03/13/2023 06:18:38 Pneumococcal Conjugate, unspecified formulation 5 completed Not Available [facility] 03/13/2023 06:18:38 Influenza, split virus, quadrivalent, preservative 7 completed Not Available [facility] 03/13/2023 06:18:38 Influenza, high-dose, quadrivalent, PF 2 completed Not Available Critical access hospital 03/13/2023 06:18:38 Influenza, high-dose, quadrivalent, PF 1 completed Not Available Critical access hospital 03/13/2023 06:18:38 Influenza, high-dose, quadrivalent, PF 0 completed Not Available Critical access hospital 03/13/2023 06:18:38 COVID-19, mRNA, LNP-S, PF, 100 mcg/0.5mL dose or 50 mcg/0.25mL dose 1 completed Not Available Critical access hospital 03/13/2023 06:18:38 COVID-19, mRNA, LNP-S, PF, 100 mcg/0.5mL dose or 50 mcg/0.25mL dose 1 completed Not Available Critical access hospital 03/13/2023 06:18:39 COVID-19, mRNA, LNP-S, PF, 100 mcg/0.5mL dose or 50 mcg/0.25mL dose 1 completed Not Available Critical access hospital 03/13/2023 06:18:39 COVID-19, mRNA, LNP-S, bivalent, PF, 30 mcg/0.3 mL dose 2 completed Not Available Critical access hospital 03/13/2023 06:18:39 pneumococcal polysaccharide PPV23 1 completed Not Available Critical access hospital 03/13/2023 06:18:39 influenza, unspecified formulation 6 completed Not Available Critical access hospital 03/13/2023 06:18:39 influenza, unspecified formulation 4 completed Not Available Critical access hospital 03/13/2023 06:18:39 Influenza, high-dose, quadrivalent, PF 3 completed Not Available Critical access hospital 05/15/2023 05:33:16 Past Encounters Encounter ID Performer Location Encounter Start Date Encounter Closed Date Diagnosis/Indication Diagnosis SNOMED-CT Code Diagnosis ICD10 Code Diagnosis Note [id number] ANA HER MD [address] [place] [address] 03/04/2024 14:02:04 03/04/2024 15:12:46 Active or passive immunization 545767329 Z23 Hypothyroidism 50636588 E03.9 dose lowered during hospital or rehab stay, will repeat TSH in few months. Osteoporotic fracture 46 182114 M80.00XD received first dose of zoledronic acid [...] to next visit. Iron defic iency anemia 81394389 D50.9 Did receive some IV iron, unclear how many doses. No longer taking oral iron. Had seen [facility] about colonoscop y due to diarrhea, but appears that was postponed due to her aortic stenosis/T AVR... will repeat CBC and iron studies in few months, if falling again will need to consider GI workup for blood loss. Chronic ki dney disease 097989245 N18.9 Prediabetes 191964064 R7 3.03 Health Concerns Section Related Observation LastModified by Organization Detai ls LastModified Time None Recorded Concern Status LastModified by Organization Details LastModified Time None Recorded Payers Encounter Date Sequence Insurance Name Policy Number Policy Palacio Covered Member ID Palacio Member ID Guarantor Name 03/04/2024 1 [place] [employer] Digna Olson [id number] Digna Christiansensocorro 03/04/2024 2 [place] [facility] [id number] Digna Christiansensocorro [id number] Digna Lemus Whitney Notes Date Note Type Note Provider Name and Address Organization Details Recorded Time 03/04/2024 text/html Pt was admitted to [facility] 12/10-12/16 with fall and humeral fracture. [...] TAVR. ANA HER MD [address], [place], [address], [facility]. 03/04/2024 17:49:41 OBGyn Episode No OBEpisode recorded.
--- OUTSIDE RECORDS SUMMARY | 2024-05-23 10:30 | XMS_ITS | Encounter Summary ---
[place] [address] Care Team Providers Care Shirring Machine Operator Automatic Name Role Phone Ana Her MD Primary Care Provider [phone] Encounter Details Date Type Department Care Team (Late st Contact Info) Description 10/23/2022 Telephone Mammography/[place] [phone] [place] [place] Social History Tobacco Use Types [...] on filedocumented in this encounter Care Teams Shirring Machine Operator Automatic Relationship Specialty Start Date End Date Ana Her MD Geovany [address] [place] [address] PCP - General 07/29/13 documented as of this encounter
--- OUTSIDE RECORDS SUMMARY | 2024-05-23 10:30 | XMS_ITS | Encounter Summary ---
Author Organization Formerly [facility] [place] [address] Care Team Providers Care Oven Roaster Name Role Phone Ana eHr MD Primary Care Provider [phone] Encounter Details Date Type Department Care Team (Late st Contact Info) Description 03/09/2022 Telephone [place] [address] Prakash Mendez MD [facility] [place] [address] Social History Tobacco Use Types Packs/Day Years [...] the mobile number listed in her chart ([phone]). Her other daughter answered the phone and reported that she had just dropped her off in the Emergency Department at [facility] and parked the car. She was walking back to the building to be with her. I reassured her that going to the Emergency Department seemed like a reasonable plan. I assured her that we are always happy to see her here at [facility] anytime and that they could call back anytime with further questions or concerns. This note will be routed to the provider mentioned above. Prakash Mendez MD documented in this encounter Plan of Treatment Not on file documented as of this encounter Visit Diagnoses Not on filedocumented in this encounter Care Teams Oven Roaster Relationship Specialty Start Date End Date Ana Her MD [address] [place] [address] PCP - General 07/29/13 documented as of this encounter
--- OUTSIDE RECORDS SUMMARY | 2024-05-23 10:30 | XMS_ITS | Continuity of Care Document ---
Author Organization [place] [facility] [place] [address] Care Team Providers Care Sales Project Administrator Name Role Phone [employer] As[employer]er [facility] Orthopedic Surgeon [facility] Sleep Medicine [facility] Machine Shop Instructor Assessment No assessment recorded. Plan of Treatment Reminders Order Date Submit Date Provider Last Modified By Organization Details Last Modified Time Details Appointments Follow Up 20 2024 01:20P M Ana Wade Not available Not available Not available Lab BMP, serum or plasma 2023 024 [facility] (Registration ), [address] [place] [address] [place], [address], 04/19/2024 11:42:49 vitamin D, 25-hydrox y, total, serum 2023 024 [facility] (Registration ), [address] [place] [address] [place], [address], 04/18/2024 16:09:19 HbA1c (hemoglob in A1c), blood 2023 024 [facility] (Registration ), [address] [place] [address] [place], [address], 04/19/2024 11:39:49 TSH, serum, reflex free T4 2023 024 [facility] (Registration ), [address] [place] [address] [facility] [place], [address], 04/19/2024 11:40:25 CBC 2023 024 [facility] (Registration ), [address] [place] [address] [place], [address], 04/18/2024 15:08:25 ferritin, serum or plasma 2023 024 [facility] (Registration ), [address] [place] [address] [place], [address], 04/19/2024 11:41:22 iron + total iron-bind ing capacity (TIBC), serum 2023 024 [facility] (Registration ), [address] [place] [address] [place], [address], 04/19/2024 11:43:17 Referral None recorded. Procedures None [...] humeral fracture 2023- MD [address], [place], [address] , [facility] 4 17:34:10 Hypothyr oidism 99899714 Active 1959 EVIE shaw [facility] 4 10:29:59 Essentia l hyperten jason 61018467 Active 1959 EVIE shaw [facility] 4 10:29:36 Hyperlip idemia 88804611 Active 1959 on statin MD [address], [place], [address] , [facility] 4 20:35:18 Spinal stenosis of lumbar region 76139365 Active 2012 s/p lumbar foramino parish L4 MD [address], [place], [address] , [facility] 4 20:36:41 Sleep apnea 63669385 Active 2012 on CPAP MD [address], [facility] [address] , [facility] 4 20:39:31 Gastroes ophageal reflux disease without esophagi tis 967686313 Completed 195908/12/2023 Removal Reason: resolved with surgical repair of HH MD [address], [place], [address] , [facility] 4 10:41:24 Family history of malignan t neoplasm of digestiv e organ 705254832 Active [address], [place], [address] , [facility] 4 20:37:03 Paresthe samir 94481076 Completed 201412/01/2014 11/28/19 15 - Comments only - Ana Wade MD - check B12 and folate Problem Code: R20.2; Problem Code Type: ICD-10; Not Available [facility] 3 05:53:48 Adult health examinat ion Active [address], [place], [address] , [facility] 4 20:33:34 [...] Z01.818; Problem Code Type: ICD-10; Not Available [facility] 3 05:53:48 Localize d edema 625707514 Completed 201501/29/2016 12/13/19 16 - Comments only - Ana Wade MD - and some on left as well, will check BMP. 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 Nusrat esparza for removal. Problem Code: L72.3; Problem Code Type: ICD-10; Not Available Pending sale to [facility] 3 05:53:49 Chronic ulcer of foot 398724831 Completed 201601/16/2017 12/18/19 17 - Comments only - Ana Wade MD - Due to injury. This does appear to have some granulat ion tissue and to be healing. She is given a prescrip tion for Keflex to take only if erythema seems to be extendin g. Problem Code: L97.509; Problem Code Type: ICD-10; Not Available Pending sale to [facility] 3 05:53:49 Diarrhea 57481875 Completed 201602/10/2017 02/05/20 17 - Comments only - Ana Wade MD - Persiste nt over several months, we will collect stool for C. 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 6 mm PT1NO E2P2 poistive , HER2 negative MD [address], [place], [address] , [facility] 4 20:38:49 Pain in left lower limb 647989951 Active 2016 EVIE shaw, [facility]. 4 10:32:00 Pain in thoracic spine 885377504 Active 2016 EVIE shaw [facility], [facility]. 4 10:32:06 Spasm 28736448 Active 2017 EVIE shaw [facility]. 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 2018 Danica shaw, [facility] 4 14:36:02 Tachycar lea 4917979 Completed 201811/25/2018 Problem Code: R00.0; Problem Code Type: ICD-10; Not Available [facility] 3 05:53:51 Pre-surg ruben evaluati on Completed 201811/25/2018 Problem Code: Z01.818; Problem Code Type: ICD-10; Not Available [facility] 3 05:53:51 Iron deficien cy anemia 36671830 Active 2019 elevated MCV: normal B12 2021, normal folate 2018 IV iron 2023 EGD 01/2022 paraesop hageal hernia (since repaired ) colo 03/2017 normal ANA WADE MD [facility] [address], [place], [address] , [facility] 4 11:44:45 Lumbago with sciatica 991626346 Completed 201903/16/2020 02/24/20 20 - Comments only - Vy Pinon [employer] - Likely aggravat ed by increase d [...] M54.40; Problem Code Type: ICD-10; Not Available Pending sale to [facility] 3 05:53:52 Right side sciatica 01576104326 9101 Active 2019 EVIE shaw, [facility] 4 10:33:09 Left side sciatica 48509269206 9104 Active [address], [facility] [address] , [facility] 4 17:20:20 Diaphrag matic hernia 04132603 Completed 202108/11/2023 Removal Reason: s/p repair MD [address], [facility] [address] , [facility] 4 20:50:39 History of SARS-CoV -2 66552889255 5988126 Completed 202104/04/2022 03/21/20 22 - Comments only - Ana Wade MD - testing is negative today in the office. Still some fatigue but otherwis e recoveri ng. Did get MAB. Already had covid bivalent booster prior to illness Problem Code: Z86.16; Problem Code Type: ICD-10; Not Available Pending sale to [facility] 3 05:53:53 Diarrhea 74286995 Completed 202104/18/2022 Problem Code: R19.7; Problem Code Type: ICD-10; MD [address], [facility] [address] , [facility] 4 21:03:02 Radhain myla mammogra phy Completed 202208/11/[address], [facility] [address] , [facility] 4 20:36:56 Carpal tunnel syndrome of left wrist 85675228398 9102 Completed 202201/23/2023 Problem Code: G56.02; Problem Code Type: ICD-10; Not Available Pending sale to [facility] 4 05:37:46 Diarrhea 32843146 Active 2022 started colestip ol 01/2023 ANA WADE MD [address], [place], [address] , [facility] 4 21:03:02 Carpal tunnel syndrome of right wrist 46516626954 9108 Completed 201803/19/2020 Problem Code: G56.01; Problem Code Type: ICD-10; Not Available Pending sale to [facility] 3 05:53:55 Pain of left knee joint 91910814917 4107 Completed 202107/30/2022 Problem Code: M25.562; Problem Code Type: ICD-10; Not Available Pending sale to [facility] 3 05:53:55 Hypersom korina 91018377 Completed 201311/27/2014 Problem Code: 780.54; Problem Code Type: ICD-9; Not Available Pending sale to [facility] 3 05:53:56 Screenin g for disorder Completed 201909/11/2021 Problem Code: Z13.9; Problem Code Type: ICD-10; Not Available Pending sale to [facility] 3 05:53:56 Anemia 178008265 Completed 201903/19/2020 Problem Code: D64.9; Problem Code Type: ICD-10; Not Available Pending sale to [facility] 3 05:53:56 Long-ter m current use of anticoag ulant 409686673 Completed 201709/01/2018 Problem Code: Z79.01; Problem Code Type: ICD-10; Not Available Pending sale to [facility] 3 05:53:57 Chronic rhinitis 22665508 Completed 202108/12/2021 Problem Code: J31.0; Problem Code Type: ICD-10; Not Available Pending sale to [facility] 3 05:53:57 Impaired fasting glycemia 705426770 Completed 201401/28/2023 Not Available Pending sale to [facility] 3 05:53:57 Fatigue 52857707 Completed 201903/19/2020 Problem Code: R53.83; Problem Code Type: ICD-10; Not Available Pending sale to [facility] 3 05:53:58 Upper respirat ory tract infectio n caused by Influenz a A 67086115914 9104 Completed 201707/02/2017 Problem Code: J09.x2; Problem Code Type: ICD-10; Not Available Pending sale to [facility] 3 05:53:59 Diarrhea 53206641 Completed 201709/01/2018 ANA WADE MD [facility] [address], [place], [address] [facility] 4 21:03:02 Acute upper respirat ory infectio n 76865309 Completed 202108/26/2021 Problem Code: J06.9; Problem Code Type: ICD-10; Not Available Pending sale to [facility] 3 05:53:59 Pain in right foot 44374483466 9107 Completed 202207/30/2022 Problem Code: M79.671; Problem Code Type: ICD-10; Not Available Pending sale to [facility] 3 05:54:00 Breast composit ion 227109584 Completed 201601/28/2023 Not Available [facility] 3 05:54:00 Changes in skin texture 347257058 Completed 202207/30/2022 Problem Code: R23.4; Problem Code Type: ICD-10; Not Available Pending sale to [facility] 3 05:54:01 Spasm 27688408 Completed 201603/23/2017 Problem Code: R25.2; Problem Code Type: ICD-10; EVIE shaw [facility] 4 10:33:28 Hyperten sive disorder 92955579 Completed 11/28/19 15 - Comments only - Ana Wade MD - [facility] ed, no change in medicati ons Not Available Pending sale to [facility] 3 05:54:03 Arthralg ia of the ankle and/or foot 983553552 Completed 201501/30/2016 Problem Code: M25.571; Problem Code Type: ICD-10; Not Available Pending sale to [facility] 3 05:54:03 Dyspnea 593977316 Completed 201903/19/2020 Problem Code: R06.02; Problem Code Type: ICD-10; Danica Felix [facility] 4 14:39:47 Trigger finger of right hand 00304838389 127865 Completed 201803/19/2020 Problem Code: M65.341; Problem Code Type: ICD-10; Not Available Pending sale to [facility] 3 05:54:06 Cough 85586899 Completed 202108/12/2021 Problem Code: R05.1; Problem Code Type: ICD-10; Not Available Pending sale to [facility] 3 05:54:06 At risk - finding 015976090 Completed 201811/11/2018 Problem Code: Z91.89; Problem Code Type: ICD-10; Not Available Pending sale to [facility] 3 05:54:06 Cough 46897177 Completed 201706/15/2017 Problem Code: R05; Problem Code Type: ICD-10; Not Available Pending sale to [facility] 3 05:54:07 Preopera tive cardiova scular examinat ion Completed 202112/18/2021 Problem Code: Z01.810; Problem Code Type: ICD-10; Not Available Pending sale to [facility] 3 05:54:08 Arterial bruit 80324028 Completed 202109/11/2021 Not Available Pending sale to [facility] 3 05:54:08 Gastroes ophageal reflux disease 749991326 Completed Not Available Pending sale to [facility] 3 05:54:09 Imaging of musculos keletal system abnormal 011376010 Completed 201603/23/2017 Problem Code: R93.7; Problem Code Type: ICD-10; Not Available Pending sale to [facility] 3 05:54:10 Blood glucose outside referenc e range 734966331 Completed 201503/20/2016 Problem Code: R73.09; Problem Code Type: ICD-10; Not Available Pending sale to [facility] 3 05:54:10 Abdomina l aortic aneurysm 782973826 Completed 195912/04/2014 Not Available Pending sale to [facility] 3 05:54:11 Lung field abnormal 802789892 Completed 202109/11/2021 Problem Code: R91.8; Problem Code Type: ICD-10; Not Available Pending sale to [facility] 3 05:54:11 Ingrowin g nail 796084358 Completed 201503/23/2017 Problem Code: L60.0; Problem Code Type: ICD-10; Not Available Pending sale to [facility] 3 05:54:11 Hypokale karyn 90998234 Completed 201504/17/2016 Problem Code: E87.6; Problem Code Type: ICD-10; Not Available Pending sale to [facility] 3 05:54:12 Spasm 34933115 Completed 202201/23/2023 Problem Code: M62.838; Problem Code Type: ICD-10; EVIE shaw, [facility]. 4 10:33:28 Aneurysm of ascendin g aorta 126229354 Active 2023 ANA WADE MD [address], [place], [address] , [facility]. 4 19:24:51 Bicuspid aortic valve 82518351 Active 2023 severe by ECHO 07/2023 ANA WADE MD [address], [place], [address] , [facility]. 4 19:33:10 Osteopen ia 457856468 Active 2023 EVIE shaw, [facility]. 4 10:28:13 Venous stasis 92503365 Active 2023 EVIE shaw [facility]. 4 10:29:14 Chronic kidney disease 872246765 Active 2017 Stage 3bA1v eGFR 42-[address], [place] [address] , [facility] 4 20:49:29 Dyspnea on exertion 67733478 Active 2018 Danica shaw, [facility] 4 14:39:44 Hiatal hernia 62846834 Completed 202108/11/2023 lap repair MD [address], [place] [address] , [facility] 4 20:51:15 Edema of lower extremit y 268703636 Active [address], [place] [address] , [facility] 4 20:55:49 Atrial fibrilla tion 80397667 Active 2016 s/p pulmonoa ry vein isolatio n 05/2018, chronic anticoag ulation with Xarelto MD [address], [place] [address] , [facility] 4 09:14:08 Obesity 536617002 Active [address], [place] [address] , [facility] 4 09:26:22 Cardiac pacemake r in situ 148561538 Active 2023 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 MD [address], [place] [address] , [facility] 4 09:13:49 Swelling of bilatera l lower limbs 168755482 Active [address], [place], [address] , [facility] 14:35:13 Problem Notes None recorded. Procedures Surgical History Date Name Laterality Status Provider Name and Address Organization Details Recorded Time 10/26/19 cardiac pacemaker procedure completed MD [address], [place], [address], [facility] 03/16/2024 16:33:27 10/20/19 transcatheter aortic valve implantation completed MD [address], [facility] [address], [facility] 03/16/2024 16:32:53 Imaging Results None recorded. Procedure Notes None recorded. Medical Equipment None Reported. Allergies Allergen ID Allergen Name Allergen Category Reaction Reaction Severity Criticality Documentation Date Start Date Code Code System Note Provider Name and Address Organization Details Recorded Time 18582 amlodipin e medicatio n swelling severe high 11/18/2023 98018 RxNorm Shaneka Herrera MA [facility], [facility] 13:47:28 Medications Name Sig Start [...] 1 tab by mouth daily 06/02 [facility] Not [facility] Not Available [...] Status Never Smoker KRYSTAL SKELTON LPN null, [place] [facility]. 08/12/2023 07:44:55 Date Of Most Recent [...] And Wanted Help? (For Example, If You [place] Very Nervous, Lonely, Or Blue; Got Sick [...] Details Recorded Time Pneumococcal conjugate PCV20, polysaccharide DFT254 conjugate, adjuvant, PF 4 completed MD [address], [address] 08/12/2023 11:52:18 COVID-19, mRNA, LNP-S, PF, vanda-sucrose, 30 mcg/0.3 mL 4 completed MD [address], [address] 08/12/2023 11:52:18 COVID-19, mRNA, LNP-S, PF, vanda-sucrose, 30 mcg/0.3 mL 4 completed MD [address], [address] 03/04/2024 15:04:49 Tdap 1 completed [facility] Available [facility] 03/13/2023 06:18:37 Tdap 1 completed Not Available [facility] 03/13/2023 06:18:37 zoster live 5 completed Not Available [facility] 03/13/2023 06:18:37 Influenza, high-dose, trivalent, PF 8 completed Not Available [facility] 03/13/2023 06:18:38 Influenza, split virus, trivalent, preservative 6 completed Not Available [facility] 03/13/2023 06:18:38 Pneumococcal Conjugate, unspecified formulation 5 completed Not Available [facility] 03/13/2023 06:18:38 Influenza, split virus, quadrivalent, preservative 7 completed Not Available [facility] 03/13/2023 06:18:38 Influenza, high-dose, quadrivalent, PF 2 completed Not Available [facility] 03/13/2023 06:18:38 Influenza, high-dose, quadrivalent, PF 1 completed Not Available [facility] 03/13/2023 06:18:38 Influenza, high-dose, quadrivalent, PF 0 completed Not Available [facility] 03/13/2023 06:18:38 COVID-19, mRNA, LNP-S, PF, 100 mcg/0.5mL dose or 50 mcg/0.25mL dose 1 completed Not Available Pending sale to [facility] 03/13/2023 06:18:38 COVID-19, mRNA, LNP-S, PF, 100 mcg/0.5mL dose or 50 mcg/0.25mL dose 1 completed Not Available [facility] 03/13/2023 06:18:39 COVID-19, mRNA, LNP-S, PF, 100 mcg/0.5mL dose or 50 mcg/0.25mL dose 1 completed Not Available [facility] 03/13/2023 06:18:39 COVID-19, mRNA, LNP-S, bivalent, PF, 30 mcg/0.3 mL dose 2 completed Not Available [facility] 03/13/2023 06:18:39 pneumococcal polysaccharide PPV23 1 completed Not Available [facility] 03/13/2023 06:18:39 influenza, unspecified formulation 6 completed Not Available [facility] 03/13/2023 06:18:39 influenza, unspecified formulation 4 completed Not Available [facility] 03/13/2023 06:18:39 Influenza, high-dose, quadrivalent, PF 3 completed Not Available Pending sale to [facility] 05/15/2023 05:33:16 Past Encounters Encounter ID Performer Location Encounter Start Date Encounter Closed Date Diagnosis/Indication Diagnosis SNOMED-CT Code Diagnosis ICD10 Code Diagnosis Note [id number] Samantha Razo RN [address] [place] [address] 04/18/2024 10:14:04 04/18/2024 10:46:21 Osteoporotic fracture 01027343 M80.00XD Hypothyroidism 27691984 E03.9 Iron defic iency anemia 94440616 D50.9 Chronic ki dney disease 826704134 N18.9 Prediabetes 540376068 R7 3.03 Health Concerns Section Related Observation LastModified by Organization Detai ls LastModified Time None Recorded Concern Status LastModified by Organization Details LastModified Time None Recorded Payers Encounter Date Sequence Insurance Name Policy Number Policy Palacio Covered Member ID Palacio Member ID Guarantor Name 04/18/2024 1 [place] [employer] Digna Olson [id number] Digna Olson 04/18/2024 2 [place] [facility] [id number] Digna Olson [id number] Digna Olson OBGyn Episode No OBEpisode recorded.
--- OUTSIDE RECORDS SUMMARY | 2024-05-23 10:30 | XMS_ITS | Clinical Summary ---
Author Organization [facility] [place] [address] Care Team Providers Care Show Host Name Role Phone Ana Her MD Primary Care Provider [phone] Allergies No known active allergies Medications Medication [...] - TT3 and FT4 nl - My TABLEAU ANALYST colleague called and spoke with covering MD [...] history exists Medical Devices Implanted Type Area Senior Ui Web Developer Device Identifier Shelf Expiration Date Model / Serial / Lot Breast Clip-02/26/20 17 Implanted: by Enzo Burkett MD (Quantity not on file) Breast Clip Left: Breast Bard - 0614 05/04/2019 [employer]ENOMARK ULTRACOR BREAST TISSUE MARKER ULTRASOUND ENHANCED BLANCA / / [id number] Description:BLANCA Procedures Procedure Name Priority Date/Time Associated [...] Osteopenia of neck of femur, unspecified laterality associate 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 ? Jeanine Lobato FOUNTAIN PEN NIBS INSPECTOR IMG MAMMO ORD ERABLES * DXA Central [...] BMD measurements and plots are available in [employer] under the imaging tab. Paper copies will be sent to providers without [employer] access. If you have received this report without the data sheet and do not have access to [employer], please contact Radiology Bacteriologist Food at [phone] Thursday thru Thursday 8am-4pm. Thank you for letting us participate in the care of this patient. ??If you are a health care provider and have any questions regarding this report, please contact the number below. ??For patients who have questions please contact the health ambulatory care nurse that requested your imaging first. [...] BMD measurements and plots are available in [employer] Baby Careunder the imaging tab. Paper copies will be sent to providers without E- access.If you have received this report without the data sheet and do not haveaccess to E-, please contact Radiology Bacteriologist Food at [phone] Thursday thrriday 8am-4pm. Thank you for letting us participate in the care of this patient. If youare a health care provider and have any questions regarding this report,please contact the number below. For patients who have questions please contactthe health ambulatory care nurse that requested your imaging first. Ricky [...] Status decision made by: Patient Care Teams Show Host Relationship Specialty Start Date End Date Aan Her MD [facility] [address] [place] [address] PCP - General 07/29/13
--- OUTSIDE RECORDS SUMMARY | 2024-05-23 10:31 | XMS_ITS | Encounter Summary ---
Author Organization [facility] [place] [address] Care Team Providers Care Straw Hat Brim Raiser Operator Name Role Phone Ana Her MD Primary Care Provider [phone] Encounter Details Date Type Department Care Team (Late st Contact Info) Description 05/10/2018 1:10 PM EST - 05/10/2018 11:59 PM EST Hospital Encounter Mammography/[place] [phone] Hiral Padgett, WENDY Encounter for screening mammogram [...] cancer documented in this encounter Care Teams Straw Hat Brim Raiser Operator Relationship Specialty Start Date End Date Ana Her MD [address] [place] [address] PCP - General 07/29/13 documented as of this encounter
--- OUTSIDE RECORDS SUMMARY | 2024-05-23 10:31 | XMS_ITS | Encounter Summary ---
Author Organization [facility], 1928–[address] [place] [address] Care Team Providers Care It Coordinator Name Role Phone Ana Her MD Primary Care Provider [phone] Encounter Details Date Type Department Care Team (Latest Contact Info) Description 01/08/2022 6:11 AM EDT - 01/08/2022 9:40 AM EDT Hospital Encounter [place] [phone] Laura Park MD [facility] [place] [address] Discharge Disposition: Home Social History Tobacco Use [...] a nurse in the Thoracic Clinic at [phone]. After hours or on weekends or holidays please call: [phone] and ask to speak to the Thoracic Physician cold roll packer sheet iron. Diet: You should follow a clear liquid [...] - 5pm): General Surgery and Bariatric Surgery [phone] Bariatric Surgeons: Drs. Park and John [phone] Financial Services Sales Representative: [phone] Dietitians: [phone] Outside of regular business hours, including weekends and holidays: Ask for General Surgery resident cold roll packer sheet iron [phone] Please note, this call will be answered [...] of left breast of female, estrogen receptor [id number], Z17.0 ??? Anemia D64.9 ??? Aortic valve [...] 6.43) performed by Malika Chen MD at [facility] MAIN OR ??? PRO INTRAOP SENTINEL LYMPH ID W/DYE INJECTION Left 03/30/2017 ?? INTRAOPERATIVE ID (MAPPING) SENTINEL LYMPH NODE,INCLUDES INJECTION (WRVU 2.5) performed by Malika Chen MD at [facility] MAIN OR ??? PRO MASTECTOMY PARTIAL Left 03/30/2017 ?? MASTECTOMY PARTIAL (WRVU 10.13) performed by Malika Chen MD at [facility] MAIN OR ?? Cholecystectomy ?? [...] [place] Operative Note Patient Name: Digna lOson : [id number] MR#: [id number] Case Date: 01/08/2022 Surgeon: Surgeon(s) and Role: [...] Info Order Time SPECIMEN TO PATHOLOGY Gastric [place] for H Pylori Hiatal hernia Gastric [place] for H Pylori excision 01/08/2022 8:15 AM [...] 8:14 AM EDT Upper GI Endoscopy, Diagnostic (15634) Yes 01/08/2022 7:40 AM EDT Hiatal hernia [...] MD PATHOLOGY/CYTOLOGY ORDERABLES [facility] [place] [address] * Surgical Pathology Report (01/08/2022 8:14 AM EDT) Final Diagnosis [id number] ? Location: [facility]; [facility]; A The signing pathologist has (i) examined the relevant preparation(s) for the specimen(s) and (ii) rendered or confirmed the diagnosis(es). . ?Surgical Pathology DIAGNOSIS A - Gastric ??Antrum for H Pylori, excision: - ??Antrum-type mucosa with reactive gastropathy. Electronically signed by: ?Umang Raymundo MD Verified: ??01/09/2022 16:36 ??Pathologist Performed at: ??-[facility] [place] Dept. of Pathology, [place], [place] SPECIMEN(S) SUBMITTED A - Gastric ??Antrum [...] AM EDT Laura Park MD PATHOLOGY/CYTOLOGY ORDERABLES [facility] [place] [address] * POCT Glucose (01/08/2022 6:33 AM EDT) Glucose, POC 120 65 - 199 mg/dL [facility] Comment: Supplemental ranges: <140 mg/dL before meals <180 mg/dL all other times of the day Blood 01/08/2022 6:33 AM EDT 01/08/2022 6:33 AM EDT Laura Park MD POINT [place] [address] documented in this encounter Visit Diagnoses Not on filedocumented in this encounter Active and Recently Administered Medications Care Teams It Coordinator Relationship Specialty Start Date End Date Ana Her MD [address] [place] [address] PCP - General 07/29/13 documented as of this encounter
--- OUTSIDE RECORDS SUMMARY | 2024-05-23 10:31 | XMS_ITS | Encounter Summary ---
[place] [address] Care Team Providers Care Transverse Abdominal Muscle Nurse Name Role Phone Ana Her MD Primary Care Provider [phone] Encounter Details Date Type Department Care Team (Late st Contact Info) Description 12/17/2021 Telephone [place] [phone] Roma Estrada RN Social History Tobacco Use [...] on filedocumented in this encounter Care Teams Transverse Abdominal Muscle Nurse Relationship Specialty Start Date End Date Ana Her MD [address] [place] [address] PCP - General 07/29/13 documented as of this encounter
--- OUTSIDE RECORDS SUMMARY | 2024-05-23 10:31 | XMS_ITS | Encounter Summary ---
Author Organization [facility] [place] [address] Care Team Providers Care Curriculum Coordinator Name Role Phone Ana Her MD Primary Care Provider [phone] Encounter Details Date Type Department Care Team (Late st Contact Info) Description 01/08/2022 7:42 AM EDT Anesthesia Event [place] [address] Alisa Naqvi MD [facility] [address] [place] [address] Anesthesia Record Procedure Summary Procedure Name Responsible [...] cephalic vein (lateral side of arm), left; bmrt-ryd-ahmbdy catheter system; Anatomical Landmarks; 20 gauge; Joslyn [...] Procedure Summary Date: 01/08/22 Room / Location: [facility] OR [address] [place] [address] MAIN OR Anesthesia Start: 741 Anesthesia Stop: 825 Procedure: EGD, UPPER GI ENDOSCOPY (N/A Trunk) Diagnosis: (Hiatal hernia) Surgeons: Laura Will MD Responsible Provider: Alisa Naqvi MD Anesthesia Type: general ASA Status: 3 All Anesthesia Providers: Anesthesiologist: Alisa Naqvi MD Globe Mounter: Nghia Valerio MD Vitals Value Taken Time BP 98/56 01/08/22 0823 Temp Pulse Resp SpO2 99 % 01/08/22826 Pain Level Vitals shown include unvalidated device data. Patient [facility] Level of Consciousness: Conscious but [...] of left breast of female, estrogen receptor xoqpikvh37/25/2017 ??? Bicuspid aortic valve 06/10/2016 ??? Dyspnea [...] at [facility] MAIN OR Social History Tobacco Use [...] mg documented in this encounter Care Teams Curriculum Coordinator Relationship Specialty Start Date End Date Ana Her MD [facility] [address] [facility] [address] [place] [address] PCP - General 07/29/13 documented as of this encounter
--- OUTSIDE RECORDS SUMMARY | 2024-05-23 10:31 | XMS_ITS | Encounter Summary ---
[place] [address] Care Team Providers Care Geosciences Associate Professor Name Role Phone Ana Her MD Primary Care Provider [phone] Reason for Visit * Reason Comments Follow-up Encounter Details Date Type Department Care Team (Late st Contact Info) Description 05/22/2020 11:40 AM EST Office [place] [address] Jeanine Lobato APRN [facility] [place] [address] Encounter for follow-up surveillance of breast cancer; [...] was obtained which revealed IDC which is ER/WI positive, Her2 negative. Alma Delia opted against [...] ??Excision with image-guided localization ?Lymph Node Sampling: ??Hamilton lymph node(s) ?Specimen Laterality: ??Left Tumor ?Histologic [...] ??DCIS not present in specimen Lymph Nodes ?[place] Lymph Nodes: [place] lymph node biopsy performed ?Number of [place] Nodes Examined: ??3 ?Number of Lymph Node(s) [...] herex- speak almost daily. He lives in [place] and is beginning to show early signs [...] situation. Results: Imaging performed (bilateral mammogram) at [facility] today shows no evidence of malignancy, BIRADS [...] available at [employer] ([employer]) and [employer]. All questions were answered to the patient's satisfaction and they state understanding and agreement with today's treatment plan. They are encouraged to follow up sooner if they develop any new or concerning symptoms. Jeanine Lobato APRN Surgical Oncology P [phone] F [phone] [facility] documented in this encounter Plan of [...] have questions please contact the health care center manager that requested your imaging first. ? [...] mammogram documented in this encounter Care Teams Geosciences Associate Professor Relationship Specialty Start Date End Date Ana Her MD [facility] [address] [place] [address] PCP - General 07/29/13 documented as of this encounter
--- OUTSIDE RECORDS SUMMARY | 2024-05-23 10:31 | XMS_ITS | Encounter Summary ---
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 Plastic Surg [address] [place] [address] Referral ID Status Reason Start Date Expiration Date V isits Requested Visits Authorized [id number] Closed Consult, Test & Treat 06/11/2021 06/11/2022 1 1 Encounter Details Date Type Department Care Team (Late st Contact Info) Description 07/09/2021 8:30 AM EST Office [place] [address] Med Hudson MD [facility] [place] [address] Macromastia Social History Tobacco Use [...] physical with your primary care doctor and Room Service Food Server clearance Two Weeks prior to Surgery Do [...] Day of Surgery You will need a local company intermodal truck driver. If you do not have a local company intermodal truck driver, your surgery will be canceled. [...] For questions pertaining to your surgical date [phone] For nursing related questions [phone] On weekends, holidays or after office hours: Call [phone] and ask the barrel lathe operator outside to page the Plastic Surgery Resident control analyst. documented in this encounter Progress Notes * [...] and was normal. This was performed at [facility]. She has completed a breast specific questionnaire: [...] None of the time Conservative Therapy Treatments: [facility] CONSERVATIVE THERAPY TREATMENTS 07/09/2021 Physical therapy [...] 6.43) performed by Malika Chen MD at [facility] MAIN OR ??? PRO INTRAOP SENTINEL LYMPH ID W/DYE INJECTION Left 03/30/2017 INTRAOPERATIVE ID (MAPPING) SENTINEL LYMPH NODE,INCLUDES INJECTION (WRVU 2.5) performed by Malika Chen MD at [facility] MAIN OR ??? PRO MASTECTOMY PARTIAL Left 03/30/2017 MASTECTOMY PARTIAL (WRVU 10.13) performed by Malika Chen MD at [facility] MAIN OR Family History Problem [...] revisions for scarring or asymmetry.) Garcia or [place] Pattern Incision: More scarring on breast, but [...] Timeframe: Elective Procedure: Bilateral breast reduction CPT: 00334 Surgical Technique: Garcia, Pedicle Surgical site: Breasts Side: Bilateral Anesthesia: General Follow up: 1 day for drain removal; 7-10 days for HCK PAT: H+P PCP, Cardiac clearance. Need to discontinue blood thinners pre-op? Xarelto documented in this encounter Plan of Treatment Not on file documented as of this encounter Visit Diagnoses Diagnosis Macromastia Hypertrophy of breast documented in this encounter Care Teams Diaphragm Builder Relationship Specialty Start Date End Date Ana Her MD [address] [place] [address] PCP - General 07/29/13 documented as of this encounter
--- OUTSIDE RECORDS SUMMARY | 2024-05-23 10:31 | XMS_ITS | Encounter Summary ---
[place] [address] Care Team Providers Care Requirements Analyst Name Role Phone Ana Her MD Primary Care Provider [phone] Encounter Details Date Type Department Care Team (Late st Contact Info) Description 12/24/2021 Telephone [place] [phone] Chelsie Lauren Social History Tobacco Use Types [...] on filedocumented in this encounter Care Teams Requirements Analyst Relationship Specialty Start Date End Date Ana Her MD [address] [place] [address] PCP - General 07/29/13 documented as of this encounter
--- OUTSIDE RECORDS SUMMARY | 2024-05-23 10:31 | XMS_ITS | Encounter Summary ---
[place] [address] Care Team Providers Care Automatic Drill Operator Name Role Phone Ana Her MD Primary Care Provider [phone] Reason for Visit * Auth/Cert Specialty Diagnoses / Procedures Referred By Christiano hackett Referred To Contact Diagnoses S/P repair of paraesophageal hernia Post-Op monitoring Procedures PRO LAPARSCOPY REPAIR PARAESOPHAGEAL HERNIA INCL FUNDOPLASTY W/O MESH LAPAROSCOPIC PARAESOPHAGEAL HERNIA REPAIR W/FUNDOPLASTY, W/O MESH (WRVU 26.6) MODIFIER TOUPET FUNDOPLASTY Shania Will MD [facility] [place] [address] [facility] Referral ID Status Reason Start Date Expiration Date Visits Re quested Visits Authorized [id number] 1 1 Encounter Details Date Type Department Care Team (Late st Contact Info) Description 03/05/2022 12:54 PM EDT - 03/05/2022 4:55 PM EDT [place] [phone] Shania Will MD [facility] [place] [address] LAPAROSCOPIC PARAESOPHAGEAL HERNIA REPAIR W/FUNDOPLASTY, W/O MESH [...] of left breast of female, estrogen receptor [id number], Z17.0 ??? Anemia D64.9 ??? Aortic valve [...] Per chart review, her creatinine levels in 2533-8599 ranged from 0.87-1.50 indicative of possible undiagnosed [...] PM Shania Will MD General Surgery at [facility] Arrive at: Grill Cook Area [phone] Instructions Given to Patient at Discharge: Patient [...] hours please call the Surgery Clinic at [phone] before 5 PM on weekdays. For questions after hours and on weekends please call the hospital dielectric press operator at [phone] and ask for the General Surgery resident highway commissioner. They may not be familiar with your [...] post Sly diet, as instructed by the industrial analyst in the hospital for a period of [...] renal function. Please call the clinic at [phone] to confirm or reschedule. Future Appointments Date Time Provider Department Center 04/03/2022 12:00 PM Shania Will MD [facility] SURG [facility] General Instructions None Future Appointments and Orders Future Appointments and Orders Future Appointments Provider Department Dept Phone 04/03/2022 12:00 PM Shania Will MD General Surgery at [facility] Arrive at: Grill Cook Area 4L [phone] Signed: Shena Harden MD 03/07/22 7:18 AM [phone] Primary Saima Physician: MD Geovany David DR [facility] [id number] documented in this encounter Discharge Instructions * [...] hours please call the Surgery Clinic at [phone] before 5 PM on weekdays. For questions after hours and on weekends please call the hospital dielectric press operator at [phone] and ask for the General Surgery resident highway commissioner. They may not be familiar with your [...] post Sly diet, as instructed by the industrial analyst in the hospital for a period of [...] renal function. Please call the clinic at [phone] to confirm or reschedule. Future Appointments Date Time Provider Department Center 04/03/2022 12:00 PM Shania Will MD [facility] SURG [facility] documented in this encounter Medications at Time [...] Ocampo RN - 03/07/2022 10:25 AM EDT [facility] Short Stay Unit Discharge Note [...] Nutrition Plan: Continue current diet. Upon discharge- Lsy diet x 3 weeks. Supplemental shakes for [...] Sly Diet Education to pt Digna Olson. Rehabilitation Services Manager metwith pt at bedside to [...] she is noticing some overall improvement post op.Rehabilitation Services Manager took note of this and [...] that she believes she can do the syl diet and does not not foresee significant challenge incorporating this meal plan for 3wks. Patient voiced interest in severaloptions aligned with the diet and conveyed she is resourceful. Department contact information provided. Pt appreciate of promotion writer's time. Nutrition to follow as needed. [...] Perez MD 03/05/2022 Minimally Invasive Surgery Pager #[phone] * Lorrie Slater RN - 03/05/2022 6:46 [...] ?? She is [place]ology [place] [facility], and is on xarelto. ?? Impression: ??Symptomatic [...] of left breast of female, estrogen receptor busdxogtA92.512, Z17.0 ??? Anemia D64.9 ??? Aortic valve [...] 6.43) performed by Malika Chen MD at [facility] MAIN OR ??? PRO INTRAOP SENTINEL LYMPH ID W/DYE INJECTION Left 03/30/2017 ?? INTRAOPERATIVE ID (MAPPING) SENTINEL LYMPH NODE,INCLUDES INJECTION (WRVU 2.5) performed by Malika Chen MD at [facility] MAIN OR ??? PRO MASTECTOMY PARTIAL Left 03/30/2017 ?? MASTECTOMY PARTIAL (WRVU 10.13) performed by Malika Chen MD at [facility] MAIN OR ?? Cholecystectomy ?? [...] Operative Note Patient Name: Digna Olson : [id number] MR#: [id number] Case Date: 03/05/2022 Surgeon: Surgeon(s) and Role: [...] Flores MD - 03/05/2022 2:32 PM EDT [facility] Operative Note Patient Name: Digna Olson : [id number] MR#: [id number] Case Date: 03/05/2022 Surgeon: Surgeon(s) and Role: [...] Repair Paraesophageal Hernia Incl Fundoplasty W/O Mesh (15772) 03/05/2022 1:58 PM EDT Paraesophageal Hernia POCT GLUCOSE Routine 03/05/2022 12:18 PM EDT LAPAROSCOPIC PARAESOPHAGEAL HERNIA REPAIR W FUNDOPLASTY, W/O MESH Routine 03/05/2022 12:02 PM EDT documented in this encounter Results * (ABNORMAL) Differential, Automated (03/07/2022 5:08 AM EDT) Neutrophil % 80.0 % [facility] Neutrophil Absolute 5.30 1.70 - 6.10 x10(3)/mc L [facility] Lymph % 12.1 % [facility] Lymphocytes Abs 0.8(L) 0.9 - 3.2 x10(3)/mc L [facility] Monocyte % 7.6 % [facility] Monocyte Abs 0.5 0.3 - 0.9 x10(3)/mc L [facility] Eos % 0.0 % [facility] Eosinophils Abs 0.0 0.0 - 0.4 x10(3)/[facility] Basophil % 0.0 % [facility] Baso Absolute 0.0 0.0 - 0.1 x10(3)/[facility] Immature Gran % 0.30 % [facility] Comment: Immature granulocytes(IG's)percentage and absolute count will include metamyelocytes, myelocytes, and promyelocytes. Blood smears from CBCs yielding IG's will be scanned manually for concordance. If this scan disagrees with the automated IG or if promyelocytes are noted, a manual differential will be performed. Immature Gran Absolute 0.02 0.00 - 0.04 x10(3)/[facility] Blood 03/07/2022 5:08 AM EDT 03/07/2022 5:19 AM EDT Narrative Resulting Agency Comment Spec In Lab Nino Levy MD HEMATOLOGY ORDERABLE S [facility] [place] [address] * (ABNORMAL) Hemogram (03/07/2022 5:08 AM EDT) White Blood Cell 6.6 4.0 - 9.5 x10(3)/[facility] Red Blood Cell 3.16(L) 4.00 - 5.21 x10(6)/[facility] Hemoglobin 10.7(L) 11.7 - 15.5 g/dL [facility] Hematocrit 31.7(L) 35.7 - 45.8 % [facility] Mean Cell Volume 100.3(H) 82.6 - 94.[address] [facility] Mean Cell Hemoglobin 33.9(H) 27.1 - 32.[address] [facility] Mean Cell Hemoglobin Concentration 33.8 31.7 - 35.0 g/dL [facility] Platelet 110(L) 145 - 357 x10(3)/mc L [facility] RDW Standard Deviation 47.5(H) 37.0 - 46.0 [facility] RDW coefficient of variation 12.9 11.5 - 14.1 % [facility] Mean Platelet Volume 11.7 7.6 - 12.9 [facility] NRBC% auto 0.0 % [facility] NRBC Absolute 0.000 0.000 - 0.000 x10(3)/mc L [facility] Blood 03/07/2022 5:08 AM EDT 03/07/2022 5:19 AM EDT Narrative Resulting Agency Comment Spec In Lab Nino Levy MD HEMATOLOGY ORDERABLE S Performing Organization Address City/[facility]/[place] [address] * Phosphorus (03/07/2022 5:08 AM EDT) Phosphorus 2.7 2.5 - 4.5 mg/dL [facility] Blood 03/07/2022 5:08 AM EDT 03/07/2022 5:19 AM EDT Narrative Resulting Agency Comment Spec In Lab Shania Will MD CHEMISTRY ORDERABLE S Performing Organization Address City/[facility]/ZIP Co de Phone Number [facility] [place] [address] * Magnesium (03/07/2022 5:08 AM EDT) Magnesium 0.89 0.69 - 1.07 mmol/L [facility] Blood 03/07/2022 5:08 AM EDT 03/07/2022 5:19 AM EDT Narrative Resulting Agency Comment Spec In Lab Shania Will MD CHEMISTRY ORDERABLE S [facility] [place] [address] * (ABNORMAL) Basic Metabolic Panel (non-fasting) (03/07/2022 5:08 AM EDT) Glucose 111 65 - 199 mg/dL [facility] Comment:Diabetes: >=200 mg/d L plus symptoms Blood Urea Nitrogen 22(H) 8 - 18 mg/dL [facility] Creatinine 0.93 0.70 - 1.20 mg/dL [facility] Sodium 131(L) 135 - 145 mmol/L [facility] Potassium 4.5 3.5 - 5.0 mmol/L [facility] Comment: Please note: ??Patients with WBC >100,000 may have falsely elevated Potassium levels. ??For accurate Potassium quantification in these patients send serum separator tube (gold top) for subsequent determinations. ??Contact the Clinical Chemistry Laboratory if there are any questions. Chloride 100 98 - 107 mmol/L [facility] Carbon Dioxide 22 22 - 31 mmol/L [facility] Anion Gap 9 5 - 15 mmol/L [facility] Calcium 9.2 8.5 - 10.5 mg/dL [facility] Est Glomerular Filtration Rate 64 >=60 mL/min/1. 73 m?? [facility] Comment: This patient's estimated GFR [...] [facility]/ZIP Co de Phone Number [facility] [place] [address] * (ABNORMAL) Differential, Automated (03/06/2022 10:15 AM EDT) Neutrophil % 90.7 % [facility] Neutrophil Absolute 5.79 1.70 - 6.10 x10(3)/mc L [facility] Lymph % 5.0 % [facility] Lymphocytes Abs 0.3(L) 0.9 - 3.2 x10(3)/mc L [facility] Monocyte % 3.8 % [facility] Monocyte Abs 0.2(L) 0.3 - 0.9 x10(3)/mc L [facility] Eos % 0.0 % [facility] Eosinophils Abs 0.0 0.0 - 0.4 x10(3)/[facility] Basophil % 0.0 % [facility] [...] Absolute 0.03 0.00 - 0.04 x10(3)/mc L [facility] Blood 03/06/2022 10:1 5 AM EDT 03/06/2022 10:21 AM EDT Narrative Resulting Agency Comment Spec In Lab Maryam MUELLER HEMATOLOGY ORDERABL ES Performing Organization Address City/[facility]/ZIP Co de Phone Number [facility] [place] [address] * (ABNORMAL) Hemogram (03/06/2022 10:15 AM EDT) White Blood Cell 6.4 4.0 - 9.5 x10(3)/mc L [facility] Red Blood Cell 3.07(L) 4.00 - 5.21 x10(6)/mc L [facility] Hemoglobin 10.5(L) 11.7 - 15.5 g/dL [facility] Hematocrit 31.1(L) 35.7 - 45.8 % [facility] Mean Cell Volume 101.3(H) 82.6 - 94.[address] [facility] Mean Cell Hemoglobin 34.2(H) 27.1 - 32.[address] [facility] Mean Cell Hemoglobin Concentration 33.8 31.7 - 35.0 g/dL [facility] Platelet 111(L) 145 - 357 x10(3)/[facility]AT[facility] RDW Standard Deviation 47.2(H) 37.0 - 46.0 [facility] RDW coefficient of variation 12.9 11.5 - 14.1 % [facility] Mean Platelet Volume 11.5 7.6 - 12.9 [facility] NRBC% auto 0.0 % [facility] NRBC Absolute 0.000 0.000 - 0.000 x10(3)/ L [facility] Blood 03/06/2022 10:1 5 AM EDT 03/06/2022 10:21 AM EDT Narrative Resulting Agency Comment Spec In Lab Maryam MUELLER HEMATOLOGY ORDERABL ES [facility] [place] [address] * Phosphorus (03/06/2022 10:15 AM EDT) Phosphorus 3.3 2.5 - 4.5 mg/dL [facility] Blood 03/06/2022 10:1 5 AM EDT 03/06/2022 10:21 AM EDT Narrative Resulting Agency Comment Spec In Lab Shania Will MD CHEMISTRY ORDERABLE S [facility] [place] [address] * Magnesium (03/06/2022 10:15 AM EDT) Magnesium 0.69 0.69 - 1.07 mmol/L [facility] Blood 03/06/2022 10:1 5 AM EDT 03/06/2022 10:21 AM EDT Narrative Resulting Agency Comment Spec In Lab Shania Will MD CHEMISTRY ORDERABLE S Performing Organization Address City/[facility]/ZIP Co de Phone Number [facility] [place] [address] * (ABNORMAL) Basic Metabolic Panel (non-fasting) (03/06/2022 10:15 AM EDT) Glucose 155 65 - 199 mg/dL [facility] Comment:Diabetes: >=200 mg/d L plus symptoms Blood Urea Nitrogen 29(H) 8 - 18 mg/dL [facility] Creatinine 1.25(H) 0.70 - 1.20 mg/dL [facility] Sodium 134(L) 135 - 145 mmol/[facility] [...] mmol/L [facility] Carbon Dioxide 23 22 - 31 mmol/L [facility] Anion Gap 10 5 - 15 mmol/L [facility] Calcium 8.9 8.5 - 10.5 mg/dL [facility] Est Glomerular Filtration Rate 45(L) >=60 mL/min/1. 73 m?? [facility] Comment: This patient's estimated GFR [...] MD CHEMISTRY ORDERABLE S Performing Organization Address City/State/[facility] Co de Phone Number [facility] [place] [address] * (ABNORMAL) Differential, Automated (03/06/2022 4:29 AM EDT) Neutrophil % 90.5 % [facility] Neutrophil Absolute 4.47 1.70 - 6.10 x10(3)/mc L [facility] Lymph % 6.9 % [facility] Lymphocytes Abs 0.3(L) 0.9 - 3.2 x10(3)/mc L [facility] Monocyte % 2.2 % [facility] Monocyte Abs 0.1(L) 0.3 - 0.9 x10(3)/mc L [facility] Eos % 0.0 % [facility] Eosinophils Abs 0.0 0.0 - 0.4 x10(3)/mc L [facility] Basophil % 0.2 % [facility] Baso Absolute 0.0 0.0 - 0.1 x10(3)/mc L [facility] Immature Gran % 0.20 % [facility] Comment: Immature granulocytes(IG's)percentage and absolute count will include metamyelocytes, myelocytes, and promyelocytes. Blood smears from CBCs yielding IG's will be scanned manually for concordance. If this scan disagrees with the automated IG or if promyelocytes are noted, a manual differential will be performed. Immature Gran Absolute 0.01 0.00 - 0.04 x10(3)/[facility] Blood 03/06/2022 4:29 AM EDT 03/06/2022 4:49 AM EDT Narrative Resulting Agency Comment Spec In Lab Prakash Mendez MD HEMATOLOGY ORDERABLE S [facility] [place] [address] * (ABNORMAL) Hemogram (03/06/2022 4:29 AM EDT) White Blood Cell 4.9 4.0 - 9.5 x10(3)/[facility] Red Blood Cell 3.08(L) 4.00 - 5.21 x10(6)/[facility] Hemoglobin 10.5(L) 11.7 - 15.5 g/dL [facility] Hematocrit 31.0(L) 35.7 - 45.8 % [facility] Mean Cell Volume 100.6(H) 82.6 - 94.[address] [facility] Mean Cell Hemoglobin 34.1(H) 27.1 - 32.[address] [facility] Mean Cell Hemoglobin Concentration 33.9 31.7 - 35.0 g/dL [facility] Platelet 104(L) 145 - 357 x10(3)/[facility] RDW Standard Deviation 47.5(H) 37.0 - 46.[address] [facility] RDW coefficient of variation 12.9 11.5 - 14.1 % [facility] Mean Platelet Volume 11.8 7.6 - 12.[address] [facility] NRBC% auto 0.0 % [facility] NRBC Absolute 0.000 0.000 - 0.000 x10(3)/mc L [facility] Blood 03/06/2022 4:29 AM EDT 03/06/2022 4:49 AM EDT Narrative Resulting Agency Comment Spec In Lab Prakash Mendez MD HEMATOLOGY ORDERABLE S [facility] [place] [address] * (ABNORMAL) Basic Metabolic Panel (non-fasting) (03/06/2022 4:29 AM EDT) Glucose 140 65 - 199 mg/dL [facility] Comment:Diabetes: >=200 mg/d L plus symptoms Blood Urea Nitrogen 31(H) 8 - 18 mg/dL [facility] Creatinine 1.32(H) 0.70 - 1.20 mg/dL [facility] Sodium 136 135 - 145 mmol/L [facility] Potassium 5.3(H) 3.5 - 5.0 mmol/L [facility] Comment: Please note: ??Patients with WBC >100,000 may have falsely elevated Potassium levels. ??For accurate Potassium quantification in these patients send serum separator tube (gold top) for subsequent determinations. ??Contact the Clinical Chemistry Laboratory if there are any questions. Chloride 103 98 - 107 mmol/L [facility] Carbon Dioxide 23 22 - 31 mmol/L [facility] Anion Gap 10 5 - 15 mmol/L [facility] Calcium 9.0 8.5 - 10.5 mg/dL [facility] Est Glomerular Filtration Rate 42(L) >=60 mL/min/1. 73 m?? [facility] Comment: This patient's estimated GFR [...] [facility]/ZIP Co de Phone Number [facility] [place] [address] * POCT Glucose (03/05/2022 12:18 PM EDT) Glucose, POC 94 65 - 199 mg/dL [facility] Comment: Supplemental ranges: <140 mg/dL before meals <180 mg/dL all other times of the day Blood 03/05/2022 12:1 8 PM EDT 03/05/2022 12:18 PM EDT Shania Will MD POINT OF CARE TEST ORDERABLES Performing Organization Address City/[facility]/ZIP Co de Phone Number [facility] [place] [address] documented in this encounter Visit Diagnoses Not [...] Unit) documented in this encounter Care Teams Automatic Drill Operator Relationship Specialty Start Date End Date Ana Her MD [address] [facility] [address] [place] [address] PCP - General 07/29/13 documented as of this encounter
--- OUTSIDE RECORDS SUMMARY | 2024-05-23 10:31 | XMS_ITS | Encounter Summary ---
[place] [address] Care Team Providers Care House Mover Supervisor Name Role Phone Ana Her MD Primary Care Provider [phone] Reason for Visit * Reason Comments Schedule Office Case Encounter Details Date Type Department Care Team (Late st Contact Info) Description 04/23/2017 2:00 PM EST Office Visit Hematology [place] [phone] Ricky Lowry MD Malignant neoplasm of lower-outer [...] ??Excision with image-guided localization ?Lymph Node Sampling: ??[place] lymph node(s) ?Specimen Laterality: ??Left Tumor ?Histologic [...] ??DCIS not present in specimen Lymph Nodes ?[place] Lymph Nodes: [place] lymph node biopsy performed ?Number of [place] Nodes Examined: ??3 ?Number of Lymph Node(s) [...] DEXA scan was in this year at [facility]. There is no history of [...] positive documented in this encounter Care Teams House Mover Supervisor Relationship Specialty Start Date End Date Ana Her MD [address] [place] [address] PCP - General 07/29/13 documented as of this encounter
--- OUTSIDE RECORDS SUMMARY | 2024-05-23 10:31 | XMS_ITS | Encounter Summary ---
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 Cardiology at [facility]. S/P successful cardioversion May 2018. DEXA [...] on RA Breasts: deferred (examined by surgery PRODUCT MARKETING MANAGER today) Neuro: grossly nonfocal. Results: Last DXA [...] [facility] Pager - [phone] No future appointments. documented in this encounter Plan of Treatment Not on file documented as of this encounter Visit Diagnoses Diagnosis Malignant neoplasm of lower-outer quadrant of left breast of female, estrogen receptor positive FDC current use of aromatase inhibitor Use of aromatase inhibitors documented in this encounter Care Teams Architectural Project Captain Relationship Specialty Start Date End Date Ana Her MD [address] [place] [address] PCP - General 07/29/13 documented as of this encounter
--- OUTSIDE RECORDS SUMMARY | 2024-05-23 10:31 | XMS_ITS | Encounter Summary ---
Author Organization [facility] [place] [address] Care Team Providers Care Claims Director Name Role Phone Ana Her MD Primary Care Provider [phone] Encounter Details Date Type Department Care Team (Latest Contact Info) Description 05/22/2020 10:46 AM EST - 05/22/2020 11:59 PM [facility] Hospital Encounter Mammography/[place] [phone] Jeanine Lobato APRN [facility] [place] [address] Malignant neoplasm of lower-outer quadrant of left [...] mammogram documented in this encounter Care Teams Claims Director Relationship Specialty Start Date End Date Ana Her MD [facility] [address] [place] [address] PCP - General 07/29/13 documented as of this encounter
--- OUTSIDE RECORDS SUMMARY | 2024-05-23 10:31 | XMS_ITS | Encounter Summary ---
[place] [address] Care Team Providers Care Research Technician Name Role Phone Ana Her MD Primary Care Provider [phone] Encounter Details Date Type Department Care Team (Late st Contact Info) Description 01/08/2022 7:30 AM EDT - 01/08/2022 8:40 AM EDT Surgery [place] [address] Laura Park MD [facility] [address] EGD, UPPER GI ENDOSCOPY (WRVU 2.09) Social [...] a nurse in the Thoracic Clinic at [phone]. After hours or on weekends or holidays please call: [phone] and ask to speak to the Thoracic Physician diamond sorter. Diet: You should follow a clear liquid [...] - 5pm): General Surgery and Bariatric Surgery [phone] Bariatric Surgeons: Drs. Park and John [phone] Technology Infusion Specialist: [phone] Dietitians: [phone] Outside of regular business hours, including weekends and holidays: Ask for General Surgery resident diamond sorter [phone] Please note, this call will be answered [...] of left breast of female, estrogen receptor lxuigxbzD34.512, Z17.0 ??? Anemia D64.9 ??? Aortic valve [...] by Malika Chen MD at [facility] MAIN OR ??? PRO INTRAOP SENTINEL LYMPH ID W/DYE INJECTION Left 03/30/2017 ?? INTRAOPERATIVE ID (MAPPING) SENTINEL LYMPH NODE,INCLUDES INJECTION (WRVU 2.5) performed by Malika Chen MD at [facility] MAIN OR ??? PRO MASTECTOMY PARTIAL Left 03/30/2017 ?? MASTECTOMY PARTIAL (WRVU 10.13) performed by Malika Chen MD at [facility] MAIN OR ?? Cholecystectomy ?? Medications: [...] Park MD - 01/08/2022 7:48 AM EDT [facility] [place] Operative Note Patient Name: Digna Olson : [id number] MR#: [id number] Case Date: 01/08/2022 Surgeon: Surgeon(s) and Role: [...] Info Order Time SPECIMEN TO PATHOLOGY Gastric [place] for H Pylori Hiatal hernia Gastric [place] for H Pylori excision 01/08/2022 8:15 AM [...] 8:14 AM EDT Upper GI Endoscopy, Diagnostic (58109) Yes 01/08/2022 7:40 AM EDT Hiatal hernia [...] PATHOLOGY/CYTOLOGY ORDERABLES [facility] [place] [address] * Surgical Pathology Report (01/08/2022 8:14 AM EDT) Final Diagnosis [id number] ? Location: SDP; SD36; A The signing pathologist has (i) examined the relevant preparation(s) for the specimen(s) and (ii) rendered or confirmed the diagnosis(es). . ?Surgical Pathology DIAGNOSIS A - Gastric ??Antrum for H Pylori, excision: - ??Antrum-type mucosa with reactive gastropathy. Electronically signed by: ?Umang Raymundo MD Verified: ??01/09/2022 16:36 ??Pathologist Performed at: ??-[facility] [place] Dept. of Pathology, [place], [place] SPECIMEN(S) SUBMITTED A - Gastric ??Antrum [...] Park MD PATHOLOGY/CYTOLOGY ORDERABLES Performing Organization Address City/State/[facility] Co de Phone Number [facility] [place] [address] * POCT Glucose (01/08/2022 6:33 AM EDT) Glucose, POC 120 65 - 199 mg/dL [facility] Comment: Supplemental ranges: <140 mg/dL before meals <180 mg/dL all other times of the day Blood 01/08/2022 6:33 AM EDT 01/08/2022 6:33 AM EDT Laura Park MD POINT [place] [address] documented in this encounter Visit Diagnoses Not on filedocumented in this encounter Active and Recently Administered Medications Care Teams Research Technician Relationship Specialty Start Date End Date Ana Her MD [address] [facility] 1 [place] [address] PCP - General 07/29/13 documented as of this encounter
--- OUTSIDE RECORDS SUMMARY | 2024-05-23 10:31 | XMS_ITS | Encounter Summary ---
[place] [address] Care Team Providers Care Fashion Supervisor Name Role Phone Ana Her MD Primary Care Provider [phone] Encounter Details Date Type Department Care Team (Late st Contact Info) Description 02/26/2022 Orders [place] [address] Alicia Manning RN Social History Tobacco Use [...] on filedocumented in this encounter Care Teams Fashion Supervisor Relationship Specialty Start Date End Date Ana Her MD [address] [place] [address] PCP - General 07/29/13 documented as of this encounter
--- OUTSIDE RECORDS SUMMARY | 2024-05-23 10:31 | XMS_ITS | Encounter Summary ---
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 Procedures DXA Central-Spine, Hip, And/Or Whole Body (Generic) Ricky Lowry MD [facility] DR HEMATOLOGY/[place] [address] [facility] Rad Xray [address] [place] [address] [place] [address] Referral ID Status Reason Start Date Expiration Date V isits Requested Visits Authorized [id number] Closed Specialty Service Requested 05/10/2018 05/10/2019 1 1 Reason for Visit * Reason Comments Follow-up Encounter Details Date Type Department Care Team (Late st Contact Info) Description 05/10/2018 2:45 PM EST Office Visit Hematology and Oncology at [facility] [place] [address] Ricky Lowry MD Malignant neoplasm [...] ??Excision with image-guided localization ?Lymph Node Sampling: ??[place] lymph node(s) ?Specimen Laterality: ??Left Tumor ?Histologic [...] ??DCIS not present in specimen Lymph Nodes ?[place] Lymph Nodes: [place] lymph node biopsy performed ?Number of [place] Nodes Examined: ??3 ?Number of Lymph Node(s) [...] recent DEXA scan was last year at [facility]. There is no history of thromboembolic [...] [place] [facility] No new problems with VELEZ, diplopia, cough, [...] chemotherapy. TACHO. Renewal of anastrazole sent. Given [facility] brochure to share with cousins. All [...] BMD measurements and plots are available in [employer] under the imaging tab. Paper copies will be sent to providers without Convozine access. If you have received this report without the data sheet and do not have access to Convozine, please contact Radiology Senior Microstrategy Developer at [phone] Thursday thru Thursday 8am-4pm. Thank you for letting us participate in the care of this patient. For questions regarding this report, please contact the number below. ? Electronically signed by: Khushi Hughes [facility] ([phone]), at 11/10/2018 10:55 AM Narrative 11/10/2018 10:55 [...] BMD measurements and plots are available in [employer] Servicesunder the imaging tab. Paper copies will be sent to providers without Convozine access.If you have received this report without the data sheet and do not haveaccess to [employer], please contact Radiology Senior Microstrategy Developer at [phone] Thursday thruFriday 8am-4pm. Thank you for letting us participate in the care of this patient. Forquestions regarding this report, please contact the number below. Electronically signed by: Khushi Hughes [facility] ([phone]),at 11/10/2018 10:55 AM Ricky Lowry MD IMG [...] inhibitors documented in this encounter Care Teams Deputy Probation Officer Relationship Specialty Start Date End Date Ana Her MD [address] [place] [address] PCP - General 07/29/13 documented as of this encounter
--- OUTSIDE RECORDS SUMMARY | 2024-05-23 10:31 | XMS_ITS | Encounter Summary ---
[place] [address] Care Team Providers Care Shoe Polisher Name Role Phone Ana Her MD Primary Care Provider [phone] Encounter Details Date Type Department Care Team (Late st Contact Info) Description 05/06/2017 Telephone Radiation Oncology at [address] [address] Maria A Antonio RN Social [...] filedocumented in this encounter Care Teams Shoe Polisher Relationship Specialty Start Date End Date Ana Her MD [address] [facility] 1 [place] [address] PCP - General 07/29/13 documented as of this encounter
--- OUTSIDE RECORDS SUMMARY | 2024-05-23 10:31 | XMS_ITS | Encounter Summary ---
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 Procedures DXA Central Spine, Hip, and/or Whole Body (Generic) Ricky Lowry MD [facility] HEMATOLOGY/[place] [address] [facility] Rad Xray [address] [place] [address] [place] [address] Referral ID Status Reason Start Date Expiration Date V isits Requested Visits Authorized [id number] Closed Specialty Service Requested 05/22/2020 11/19/2021 1 [...] Ricky Lowry MD [facility] HEMATOLOGY/[place] [address] [facility] Rad Xray [address] [place] [address] Dr [place] briscoe [address] Referral ID Status Reason Start Date Expiration Date V isits Requested Visits Authorized [id number] Closed Specialty Service Requested 05/22/2020 11/19/2021 1 1 Encounter Details Date Type Department Care Team (Latest Contact Info) Description 11/15/2020 2:25 PM EDT - 11/15/2020 11:59 PM EDT Hospital Encounter XRay at [address] [place] [address] Ricky Lowry MD Malignant neoplasm of lower-outer quadrant of left breast of female, estrogen receptor positive; Osteopenia of neck of femur, unspecified laterality; 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 omega 2-aqv-qaz-fish-turm salty 417 mg-120 mg- 276 mg-600 mg [...] control representative current use of aromatase inhibitor documented in [...] BMD measurements and plots are available in [employer] under the imaging tab. Paper copies will be sent to providers without E- access. If you have received this report without the data sheet and do not have access to [employer], please contact Radiology Film Cutter at [phone] Thursday thru Thursday 8am-4pm. Thank you for letting us participate in the care of this patient. ??If you are a health care provider and have any questions regarding this report, please contact the number below. ??For patients who have questions please contact the health skin care instructor that requested your imaging first. ? Narrative [...] BMD measurements and plots are available in [employer]under the imaging tab. Paper copies will be sent to providers without - access.If you have received this report without the data sheet and do not haveaccess to [facility], please contact Radiology Film Cutter at [phone] Thursday thrrid 8am-4pm. Thank you for letting us participate in the care of this patient. If youare a health care provider and have any questions regarding this report,please contact the number below. For patients who have questions please contactthe health skin care instructor that requested your imaging first. 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
--- OUTSIDE RECORDS SUMMARY | 2024-05-23 10:31 | XMS_ITS | Encounter Summary ---
[place] [address] Care Team Providers Care Outpatient Case Manager Name Role Phone Ana Her MD Primary Care Provider [phone] 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 * Consultation (Routine) - Closed Specialty Diagnoses / Procedures Referred By Christiano hackett Referred To Contact Plastic Surgery Diagnoses Malignant neoplasm of lower-outer quadrant of left breast of female, estrogen receptor positive Macromastia Jeanine Lobato APRN [facility] [place] [address] [facility] [address] [address] Referral ID Status Reason Start Date Expiration Date V isits Requested Visits Authorized [id number] Closed Consult, Test & Treat 06/11/2021 06/11/2022 1 1 Encounter Details Date Type Department Care Team (Late st Contact Info) Description 06/11/2021 10:00 AM EST Office [place] [address] Jeanine Lobato APRN [facility] [place] [address] Encounter for follow-up surveillance of [...] this encounter Progress Notes * Jeanine Lobato, AIRPORT LOCATION MANAGER - 06/11/2021 10:00 AM EST Images from [...] mm Grade Intermediate Margins Negative ER Positive NC Positive HER-2 Negative OncotypeDx Recurrence Score N/A [...] Family history of ovarian cancer No Ashkenazi Anglican heritage No Known genetic mutation Not tested [...] situation. Results: Imaging performed (bilateral mammogram) at [facility] today shows no evidence of malignancy, [...] free apps for your cell phone from [employer] (Healthy Living) and [employer] (AlloCure). All questions were answered to the patient's satisfaction and they state understanding and agreement with today's treatment plan. They are encouraged to follow up sooner if they develop any new or concerning symptoms. Jeanine Lobato APRN Surgical Oncology P [phone] F [phone] [facility] documented in this encounter Plan [...] breast documented in this encounter Care Teams Outpatient Case Manager Relationship Specialty Start Date End Date Ana Her MD [address] [place] [address] PCP - General 07/29/13 documented as of this encounter
--- OUTSIDE RECORDS SUMMARY | 2024-05-23 10:31 | XMS_ITS | Encounter Summary ---
[place] [address] Care Team Providers Care Chamber Worker Name Role Phone Ana Her MD Primary Care Provider [phone] Reason for Visit * Auth/Cert Specialty Diagnoses / Procedures Referred By Christiano hackett Referred To Contact Diagnoses S/P repair of paraesophageal hernia Post-Op monitoring Procedures PRO LAPARSCOPY REPAIR PARAESOPHAGEAL HERNIA INCL FUNDOPLASTY W/O MESH LAPAROSCOPIC PARAESOPHAGEAL HERNIA REPAIR W/FUNDOPLASTY, W/O MESH (WRVU 26.6) MODIFIER TOUPET FUNDOPLASTY Laura Will MD [facility] [place] [address] [facility] Referral ID Status Reason Start Date Expiration Date Visits Re quested Visits Authorized [id number] 1 1 Encounter Details Date Type Department Care Team (Late st Contact Info) Description 03/05/2022 1:58 PM EDT Anesthesia Event [place] [address] Alisa Naqvi MD [facility] [place] [address] Alessia Ramirez [place] [address] Anesthesia Record Procedure Summary Procedure Name Responsible [...] Procedure Summary Date: 03/05/22 Room / Location: [address] MAIN OR Anesthesia Start: 8 Anesthesia Stop: 1823 Procedures: LAPAROSCOPIC PARAESOPHAGEAL HERNIA REPAIR W/FUNDOPLASTY, W/O MESH (WRVU 26.6) (N/A Abdomen) MODIFIER TOUPET FUNDOPLASTY (N/A Abdomen) Diagnosis: (Paraesophageal Hernia) Surgeons: Laura Will MD Responsible Provider: Alisa Naqvi MD Anesthesia Type: general ASA Status: 3 All Anesthesia Providers: Anesthesiologist: Brayan Hubbard MD; Alisa Naqvi MD; Dario Franco MD Business Affairs Manager: Mo Vance DO Vitals Value Taken Time BP 125/75 03/05/22 1821 Temp Pulse 77 03/05/22 1823 Resp 18 03/05/22 1823 SpO2 100 % 03/05/22 182 Pain Level Vitals shown include unvalidated device data. Patient Location: PACU/[facility] Level of Consciousness: Awake and [...] of left breast of female, estrogen receptor nxntyrgm49/25/2017 ??? Bicuspid aortic valve 06/10/2016 ??? Dyspnea [...] [facility] MAIN OR ??? PRO UPPER GI ENDOSCOPY, DIAGNOSTIC N/A 01/08/2022 EGD, UPPER GI ENDOSCOPY performed by Laura Will MD at [facility] MAIN OR [...] sneeze Cardiac Hx: Exercise stress test 10/07/21 [facility]: Resting electrocardiogram showed atrial fibrillation, right [...] PONV ppx Mo Shreyas DO Pinky 03/04/2022 Video Network Engineer Pager #[phone] Region - Other Informed Consent: Anesthetic plan [...] GERD (omeprazole) ?? Exercise stress test 10/07/21 [facility]: Resting electrocardiogram showed atrial fibrillation, right BBB, left anterior fascicular block. Patient achieved 4.64METS, achieved 93% of predicted HR for age. Electrocardiographic portion of test negative for ischemia. MPI negative for ischemia or infarction. EF 45%. Wall motion normal. ?? Echo 06/19/21 ([facility]): normal biventricular size and function, symmetric [...] mg documented in this encounter Care Teams Chamber Worker Relationship Specialty Start Date End Date Ana Her MD [address] [facility] 1 [place] [address] PCP - General 07/29/13 documented as of this encounter
--- OUTSIDE RECORDS SUMMARY | 2024-05-23 10:31 | XMS_ITS | Encounter Summary ---
[place] [address] Care Team Providers Care Bee Tender Name Role Phone Ana Her MD Primary Care Provider [phone] Reason for Visit * Reason Comments Follow-up Encounter Details Date Type Department Care Team (Late st Contact Info) Description 11/15/2020 4:00 PM EDT Office Visit H[place] [address] Laura Joaquin PA Malignant neoplasm of lower-outer [...] ??Excision with image-guided localization ?Lymph Node Sampling: ??[place] lymph node(s) ?Specimen Laterality: ??Left Tumor ?Histologic [...] ??DCIS not present in specimen Lymph Nodes ?[place] Lymph Nodes: [place] lymph node biopsy performed ?Number of [place] Nodes Examined: ??3 ?Number of Lymph Node(s) [...] Spinal stenosis > A Fib. Cardiology at [facility]. S/P successful cardioversion [...] Oncology - Breast & GI Cancers [facility] Pager [phone] documented in this encounter Plan of Treatment Not on file documented as of this encounter Visit Diagnoses Diagnosis Malignant neoplasm of lower-outer quadrant of left breast of female, estrogen receptor positive documented in this encounter Care Teams Bee Tender Relationship Specialty Start Date End Date Ana Her MD [address] [place] [address] PCP - General 07/29/13 documented as of this encounter
--- OUTSIDE RECORDS SUMMARY | 2024-05-23 10:31 | XMS_ITS | Encounter Summary ---
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 Procedures DXA Central-Spine, Hip, And/Or Whole Body (Generic) Ricky Lowry MD [facility] HEMATOLOGY/[place] [address] [facility] Rad Xray [address] [place] [address] [place] [address] Referral ID Status Reason Start Date Expiration Date V isits Requested Visits Authorized [id number] Closed Specialty Service Requested 05/10/2018 05/10/2019 1 1 Reason for Visit * Diagnostic Test (Routine) - Closed Specialty Diagnoses / Procedures Referred By Contac t Referred To Contact Radiology Diagnoses Malignant neoplasm of lower-outer quadrant of left breast of female, estrogen receptor positive Osteopenia of neck of femur, unspecified laterality 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 Procedures DXA Central-Spine, Hip, And/Or Whole Body (Generic) Ricky Lowry MD [facility] HEMATOLOGY/[place] [address] [facility] Rad Xray [address] [place] [address] Dr [place], [place] [address] Referral ID Status Reason Start Date Expiration Date V isits Requested Visits Authorized [id number] Closed Specialty Service Requested 05/10/2018 05/10/2019 1 1 Encounter Details Date Type Department Care Team (Latest Contact Info) Description 11/09/2018 1:03 PM EDT - 11/09/2018 11:59 PM EDT Hospital Encounter XRay at [address] [place] [address] Ricky Lowry MD Malignant neoplasm of lower-outer quadrant of left breast of female, estrogen receptor positive; Osteopenia of neck of femur, unspecified laterality; 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 Paper copies will be sent to providers without E-DH access. If you have received this report without the data sheet and do not have access to [employer], please contact Radiology Aoc Operations Intelligence Chief at [phone] Thursday thru Thursday 8am-4pm. Thank you for letting us participate in the care of this patient. For questions regarding this report, please contact the number below. ? Electronically signed by: JULIET Jackson [facility] ([phone]), at 11/10/2018 10:55 AM Narrative 11/10/2018 10:55 [...] BMD measurements and plots are available in [employer]under the imaging tab. Paper copies will be sent to providers without Leeo access.If you have received this report without the data sheet and do not haveaccess to [employer], please contact Radiology Aoc Operations Intelligence Chief at [phone] Thursday thruFriday 8am-4pm. Thank you for letting us participate in the care of this patient. Forquestions regarding this report, please contact the number below. 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
--- OUTSIDE RECORDS SUMMARY | 2024-05-23 10:31 | XMS_ITS | Encounter Summary ---
Author Organization [facility] [place] [address] Care Team Providers Care Pipe Setter Name Role Phone Ana Her MD Primary Care Provider [phone] Encounter Details Date Type Department Care Team (Latest Contact Info) Description 01/23/2022 12:15 PM EDT TH Visit (TeleHealth) [place] [address] Laura Will MD [facility] [place] [address] Paraesophageal hernia Social History Tobacco Use Types [...] gangrene documented in this encounter Care Teams Pipe Setter Relationship Specialty Start Date End Date Ana Her MD [address] [facility] [address] [place] [address] PCP - General 07/29/13 documented as of this encounter
--- OUTSIDE RECORDS SUMMARY | 2024-05-23 10:31 | XMS_ITS | Encounter Summary ---
[place] [address] Care Team Providers Care Kettle Cook Name Role Phone Ana Her MD Primary Care Provider [phone] Encounter Details Date Type Department Care Team (Late st Contact Info) Description 06/12/2021 Telephone [place] [address] Chelsie Lauren Social History Tobacco Use Types [...] on filedocumented in this encounter Care Teams Kettle Cook Relationship Specialty Start Date End Date Ana Her MD [address] [place] [address] PCP - General 07/29/13 documented as of this encounter
--- OUTSIDE RECORDS SUMMARY | 2024-05-23 10:31 | XMS_ITS | Encounter Summary ---
Author Organization [facility] [place] [address] Care Team Providers Care Pot Annealer Name Role Phone Ana Her MD Primary Care Provider [phone] Encounter Details Date Type Department Care Team (Latest Contact Info) Description 05/31/2019 10:16 AM EST - 05/31/2019 11:59 PM EST Hospital Encounter Mammography/[place] [phone] Jeanine Lobato APRN [facility] [address] History of breast cancer Discharge Disposition: Home [...] BIRADS CATEGORY 2: Benign findings. * ??[employer] and The Society of [...] breast documented in this encounter Care Teams Pot Annealer Relationship Specialty Start Date End Date Ana Her MD [address] [place] [address] PCP - General 07/29/13 documented as of this encounter
--- OUTSIDE RECORDS SUMMARY | 2024-05-23 10:31 | XMS_ITS | Encounter Summary ---
Author Organization [facility] [place] [address] Care Team Providers Care Director Of Research And Development Name Role Phone Ana Her MD Primary Care Provider [phone] Reason for Visit * Reason Comments Follow-up Encounter Details Date Type Department Care Team (Late st Contact Info) Description 05/31/2019 11:45 AM EST Office Visit [place] [address] Ricky Lowry MD Malignant neoplasm of lower-outer [...] ??Excision with image-guided localization ?Lymph Node Sampling: ??[place] lymph node(s) ?Specimen Laterality: ??Left Tumor ?Histologic [...] ??DCIS not present in specimen Lymph Nodes ?[place] Lymph Nodes: [place] lymph node biopsy performed ?Number of [place] Nodes Examined: ??3 ?Number of Lymph Node(s) [...] in this encounter Care Teams Director Of Research And Development Relationship Specialty Start Date End Date Ana Her MD [facility] [place] [address] PCP - General 07/29/13 documented as of this encounter
--- OUTSIDE RECORDS SUMMARY | 2024-05-23 10:31 | XMS_ITS | Encounter Summary ---
[place] [address] Care Team Providers Care White Mixing Operator Name Role Phone Ana Her MD Primary Care Provider [phone] Encounter Details Date Type Department Care Team (Late st Contact Info) Description 05/10/2018 2:15 PM EST Office Visit [place] [address] Hiral Padgett, WENDY History of breast cancer [...] with image-guided localization ?Lymph Node Sampling: ?? [place] lymph node(s) ?Specimen Laterality: ?? Left Tumor [...] ?DCIS not present in specimen Lymph Nodes ?[place] Lymph Nodes: ?? [place] lymph node biopsy performed ?Number of [place] Nodes Examined: ?3 ?Number of Lymph Node(s) [...] mammogram today is cat 2. [place] for [place] later today [place] [facility] Objective: Physical Exam Constitutional: She is oriented [...] breast documented in this encounter Care Teams White Mixing Operator Relationship Specialty Start Date End Date Ana Her MD [address] [place] [address] PCP - General 07/29/13 documented as of this encounter
--- OUTSIDE RECORDS SUMMARY | 2024-05-23 10:31 | XMS_ITS | Encounter Summary ---
Author Organization [facility] [place] [address] Care Team Providers Care Eeg Technician Name Role Phone Ana Her MD Primary Care Provider [phone] Encounter Details Date Type Department Care Team (Late st Contact Info) Description 04/23/2017 [place] [address] Marjorie Ariza Social History Tobacco Use Types [...] Marjorie Ariza - 04/23/2017 2:43 PM EST Glassine Machine Tender Cell Operation Supervisor met with pt after consultation with medical [...] on filedocumented in this encounter Care Teams Eeg Technician Relationship Specialty Start Date End Date Ana Her MD [address] [facility] 1 [place] [address] PCP - General 07/29/13 documented as of this encounter
--- OUTSIDE RECORDS SUMMARY | 2024-05-23 10:31 | XMS_ITS | Encounter Summary ---
Author Organization [facility] [place] [address] Care Team Providers Care Family Health Nurse Practitioner Name Role Phone Ana Hre MD Primary Care Provider [phone] Encounter Details Date Type Department Care Team (Latest Contact Info) Description 06/11/2021 8:41 AM EST - 06/11/2021 11:59 PM [email or web address] Hospital Encounter Mammography/[place] [address] Jeanine Lobato APRN [facility] [place] [address] Malignant neoplasm of lower-outer quadrant of left [...] Take 40 mg by mouth daily. omega 8-aiv-tth-fish-turm salty 417 mg-120 mg- 276 mg-600 mg [...] who have questions please contact the health md do resident urgent care that requested your imaging first. ? Jeanine Lobato TWISTER TENDER PAPER IMG MAMMO ORD ERABLES documented in this encounter Visit Diagnoses Diagnosis Malignant neoplasm of lower-outer quadrant of left breast of female, estrogen receptor positive Breast cancer screening by mammogram documented in this encounter Care Teams Family Health Nurse Practitioner Relationship Specialty Start Date End Date Ana Her MD [address] [place] [address] PCP - General 07/29/13 documented as of this encounter
--- OUTSIDE RECORDS SUMMARY | 2024-05-23 10:31 | XMS_ITS | Encounter Summary ---
Author Organization [facility] [place] [address] Care Team Providers Care Veneer Grader Name Role Phone Ana Her MD Primary Care Provider [phone] Encounter Details Date Type Department Care Team (Late st Contact Info) Description 05/31/2019 1:00 PM EST Office [place] [address] Jeanine Lobato HOLLOW HANDLE KNIFE ASSEMBLER [facility] [place] [address] Encounter for follow-up surveillance of breast cancer; [...] was obtained which revealed IDC which is ER/KY+, Her2-. She hasno known breast masses, no adenopathy, no nipple discharge. 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 Jeanine Lobato APRN Surgical Oncology P [phone] F [phone] [facility] documented in this encounter Plan of [...] mammogram documented in this encounter Care Teams Veneer Grader Relationship Specialty Start Date End Date Ana Her MD [facility] [address] [facility] 1 [place] [address] PCP - General 07/29/13 documented as of this encounter
--- OUTSIDE RECORDS SUMMARY | 2024-05-23 10:31 | XMS_ITS | Encounter Summary ---
[place] [address] Care Team Providers Care Computer Game Tester Name Role Phone Ana Her MD Primary Care Provider [phone] Reason for Visit * Reason Comments Follow-up Encounter Details Date Type Department Care Team (Late st Contact Info) Description 11/29/2019 2:45 PM EDT Office Visit Hematology [place] [address] Ricky Lowry MD Malignant neoplasm of lower-outer [...] cancer cells with immunostaining) Stain intensity: Strong [place] immunoreactivity: Positive (>90% cancer cells with immunostaining) [...] ??Excision with image-guided localization ?Lymph Node Sampling: ??[place] lymph node(s) ?Specimen Laterality: ??Left Tumor ?Histologic [...] ??DCIS not present in specimen Lymph Nodes ?[place] Lymph Nodes: [place] lymph node biopsy performed ?Number of [place] Nodes Examined: ??3 ?Number of Lymph Node(s) [...] Spinal stenosis > A Fib. [place] [facility]. S/P successful cardioversion May 2018. DEXA scan [...] documented in this encounter Care Teams Computer Game Tester Relationship Specialty Start Date End Date Ana Her MD [address] [place] [address] PCP - General 07/29/13 documented as of this encounter
--- OUTSIDE RECORDS SUMMARY | 2024-05-23 10:31 | XMS_ITS | Encounter Summary ---
Author Organization [facility] [place] [address] Care Team Providers Care Technical Sales Manager Name Role Phone Ana Her MD Primary Care Provider [phone] Reason for Visit * Reason Comments Follow-up Encounter Details Date Type Department Care Team (Late st Contact Info) Description 10/23/2017 11:00 AM EDT Office Visit Hematology [place] [address] Mayra Page APRN [facility] [place] [address] Malignant neoplasm of lower-outer quadrant of left [...] this encounter Progress Notes * Mayra Page, BALLAST CLEANING MACHINE OPERATOR - 10/23/2017 11:00 AM EDT Digna Olson [...] ??Excision with image-guided localization ?Lymph Node Sampling: ??[place] lymph node(s) ?Specimen Laterality: ??Left Tumor ?Histologic [...] ??DCIS not present in specimen Lymph Nodes ?[place] Lymph Nodes: [place] lymph node biopsy performed ?Number of [place] Nodes Examined: ??3 ?Number of Lymph Node(s) Examined (sentinel and nonsentinel): 3 ?Lymph Node Involvement: None identified Stage (pTNM) ?Pathological Stage: ?? pT1b pN0 PMH: Past Medical History: Diagnosis Date ??? Breast cancer ??? Fracture of tibia 12/2016 left tibial plateau ??? GERD (gastroesophageal reflux disease) ??? H/O non-insulin dependent diabetes mellitus ??? Spinal stenosis Most recent DEXA scan was 10/28/16 at [facility]. There is no history of thromboembolic [...] documented in this encounter Care Teams Technical Sales Manager Relationship Specialty Start Date End Date Ana Her MD [address] [place] [address] PCP - General 07/29/13 documented as of this encounter
--- OUTSIDE RECORDS SUMMARY | 2024-05-23 10:31 | XMS_ITS | Encounter Summary ---
[place] [address] Care Team Providers Care Sales Commissions Analyst Name Role Phone Ana Her MD Primary Care Provider [phone] Encounter Details Date Type Department Care Team (Late st Contact Info) Description 06/12/2021 Telephone [place] [address] Chelsie Lauren Social History Tobacco Use Types [...] filedocumented in this encounter Care Teams Sales Commissions Analyst Relationship Specialty Start Date End Date Ana Her MD [address] [place] [address] PCP - General 07/29/13 documented as of this encounter
--- OUTSIDE RECORDS SUMMARY | 2024-05-23 10:31 | XMS_ITS | Encounter Summary ---
[place] [address] Care Team Providers Care Animal Husbandman Name Role Phone Ana Her MD Primary Care Provider [phone] 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 * Consultation (Routine) - Closed Specialty Diagnoses / Procedures Referred By Christiano hackett Referred To Contact General Surgery Diagnoses Hiatal hernia Ana Her MD [address] [place] [address] [facility] [address] [place] [phone] Referral ID Status Reason Start Date Expiration Date V isits Requested Visits Authorized [id number] Closed Consult, Test & Treat 09/23/2021 09/23/2022 6 6 Encounter Details Date Type Department Care Team (Late st Contact Info) Description 09/23/2021 Transcribe Orders eDH Incoming Referrals [phone] Ana Her MD [address] [place] [address] Hiatal hernia Social History Tobacco [...] gangrene documented in this encounter Care Teams Animal Husbandman Relationship Specialty Start Date End Date Ana Her MD [address] [place] [address] PCP - General 07/29/13 documented as of this encounter
--- OUTSIDE RECORDS SUMMARY | 2024-05-23 10:31 | XMS_ITS | Encounter Summary ---
[place] [address] Care Team Providers Care Natural Sciences Manager Name Role Phone Ana Her MD Primary Care Provider [phone] Encounter Details Date Type Department Care Team (Late st Contact Info) Description 11/09/2018 2:45 PM EDT Office Visit Hematology [place] [address] Ricky Lowry MD Malignant neoplasm of lower-outer [...] ??Excision with image-guided localization ?Lymph Node Sampling: ??[place] lymph node(s) ?Specimen Laterality: ??Left Tumor ?Histologic [...] ??DCIS not present in specimen Lymph Nodes ?[place] Lymph Nodes: [place] lymph node biopsy performed ?Number of [place] Nodes Examined: ??3 ?Number of Lymph Node(s) [...] laterality documented in this encounter Care Teams Natural Sciences Manager Relationship Specialty Start Date End Date Ana Her MD [address] [place] [address] PCP - General 07/29/13 documented as of this encounter
--- OUTSIDE RECORDS SUMMARY | 2024-05-23 10:31 | XMS_ITS | Encounter Summary ---
[place] [address] Care Team Providers Care Head Control Clerk Name Role Phone Ana Her MD Primary Care Provider [phone] Encounter Details Date Type Department Care Team (Late st Contact Info) Description 05/19/2017 Telephone Hematology [place] [address] Sandy Chapman Social History Tobacco Use Types [...] on filedocumented in this encounter Care Teams Head Control Clerk Relationship Specialty Start Date End Date Ana Her MD [address] [place] [address] PCP - General 07/29/13 documented as of this encounter
--- OUTSIDE RECORDS SUMMARY | 2024-05-23 10:31 | XMS_ITS | Encounter Summary ---
Author Organization [facility] [place] [address] Care Team Providers Care Coring Machine Operator Name Role Phone Ana Her MD Primary Care Provider [phone] Encounter Details Date Type Department Care Team (Late st Contact Info) Description 10/23/2017 9:43 AM EDT - 10/23/2017 11:59 PM EDT Hospital Encounter [place] [address] Hiral Padgett, WENDY History of breast cancer [...] breast documented in this encounter Care Teams Coring Machine Operator Relationship Specialty Start Date End Date Ana Her MD [address] [place] [address] PCP - General 07/29/13 documented as of this encounter
--- OUTSIDE RECORDS SUMMARY | 2024-05-23 10:31 | XMS_ITS | Encounter Summary ---
Author Organization [facility] [place] [address] Care Team Providers Care Pump Servicer Name Role Phone Ana Her MD Primary Care Provider [phone] Reason for Visit * Consultation (Routine) - Closed Specialty Diagnoses / Procedures Referred By Christiano hackett Referred To Contact General Surgery Diagnoses Hiatal hernia Ana Her MD [address] [place] [address] [facility] [address] [place] [address] Referral ID Status Reason Start Date Expiration Date V isits Requested Visits Authorized [id number] Closed Consult, Test & Treat 09/23/2021 09/23/2022 6 6 Encounter Details Date Type Department Care Team (Latest Contact Info) Description 12/05/2021 3:00 PM EDT Office [place] [address] Laura Will MD [facility] [place] [address] Paraesophageal hernia Social History Tobacco [...] of left breast of female, estrogen receptor [id number], Z17.0 ??? Anemia D64.9 ??? Aortic valve [...] MD at [facility] MAIN OR Cholecystectomy Medications: Current Outpatient Medications: [...] documented in this encounter Care Teams Pump Servicer Relationship Specialty Start Date End Date Ana Her MD [address] [place] [address] PCP - General 07/29/13 documented as of this encounter
--- OUTSIDE RECORDS SUMMARY | 2024-05-23 10:31 | XMS_ITS | Encounter Summary ---
Author Organization [facility] [place] [address] Care Team Providers Care Ballet Company Member Name Role Phone Ana Her MD Primary Care Provider [phone] Reason for Visit * Reason Comments Follow Up Surgery Encounter Details Date Type Department Care Team (Late st Contact Info) Description 07/13/2017 1:30 PM EDT Office [place] [address] Hiral Padgett, WENDY History of breast cancer [...] with image-guided localization ?Lymph Node Sampling: ?? [place] lymph node(s) ?Specimen Laterality: ?? Left Tumor [...] ?DCIS not present in specimen Lymph Nodes ?[place] Lymph Nodes: ?? [place] lymph node biopsy performed ?Number of [place] Nodes Examined: ?3 ?Number of Lymph Node(s) [...] AM EDT EXAMINATION: MAMMO SCREENING CAD AND JEARMY LEFT CLINICAL HISTORY: new baseline after left [...] breast documented in this encounter Care Teams Ballet Company Member Relationship Specialty Start Date End Date Ana Her MD [facility] [address] [place] [address] PCP - General 07/29/13 documented as of this encounter
--- OUTSIDE RECORDS SUMMARY | 2024-05-23 10:31 | XMS_ITS | Encounter Summary ---
[place] [address] Care Team Providers Care Faculty Research Assistant Name Role Phone Ana Her MD Primary Care Provider [phone] Encounter Details Date Type Department Care Team (Late st Contact Info) Description 02/04/2022 12:00 PM EDT [place] [address] Social History Tobacco Use Types Packs/Day Years [...] on filedocumented in this encounter Care Teams Faculty Research Assistant Relationship Specialty Start Date End Date Ana Her MD [address] [place] [address] PCP - General 07/29/13 documented as of this encounter
--- OUTSIDE RECORDS SUMMARY | 2024-05-23 10:31 | XMS_ITS | Encounter Summary ---
[place] [address] Care Team Providers Care Playground Equipment Erector Name Role Phone Ana Her MD Primary Care Provider [phone] Encounter Details Date Type Department Care Team (Late st Contact Info) Description 04/05/2018 Telephone [place] [address] Adrianna Jones Social History Tobacco Use Types [...] Padgett. Patient advises she is admitted at [facility] for afib and is pending procedure etc. Patient will call to reschedule once she is discharged home. documented in this encounter Plan of Treatment Not on file documented as of this encounter Visit Diagnoses Not on filedocumented in this encounter Care Teams Playground Equipment Erector Relationship Specialty Start Date End Date Ana Her MD [address] [place] [address] PCP - General 07/29/13 documented as of this encounter
--- OUTSIDE RECORDS SUMMARY | 2024-05-23 10:31 | XMS_ITS | Encounter Summary ---
Author Organization [facility] [place] [address] Care Team Providers Care Forensic Psychiatrist Name Role Phone Ana Her MD Primary Care Provider [phone] Encounter Details Date Type Department Care Team (Late st Contact Info) Description 09/03/2021 Ancillary Procedure Radiology Library [place] [address] Laura Will MD [facility] [address] Social History Tobacco Use Types Packs/Day Years [...] CT Chest (09/03/2021 12:00 AM EDT) Narrative [facility] - 11/28/2021 1:22 PM EDT This exam is auto-finalizing. It's purpose is for storage only. Laura Will MD IMG FILM LIBRARY OR DERABLES Performing Organization Address City/State/[facility] Co de Phone Number [place], [place] documented in this encounter Visit Diagnoses Not on filedocumented in this encounter Care Teams Forensic Psychiatrist Relationship Specialty Start Date End Date Ana Her MD [address] [facility] [place] [address] PCP - General 07/29/13 documented as of this encounter
--- OUTSIDE RECORDS SUMMARY | 2024-05-23 10:31 | XMS_ITS | Encounter Summary ---
[place] [address] Care Team Providers Care Parking Line Painter Name Role Phone Ana Her MD Primary Care Provider [phone] Encounter Details Date Type Department Care Team (Late st Contact Info) Description 11/01/2021 Telephone [place] [address] Chelsie Lauren Social History Tobacco Use Types [...] on filedocumented in this encounter Care Teams Parking Line Painter Relationship Specialty Start Date End Date Ana Her MD [address] [place] [address] PCP - General 07/29/13 documented as of this encounter
--- OUTSIDE RECORDS SUMMARY | 2024-05-23 10:31 | XMS_ITS | Encounter Summary ---
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 current use of aromatase inhibitor Procedures DXA Central Spine, Hip, and/or Whole Body (Generic) Ricky Lowry MD [facility] [address] HEMATOLOGY/[place] [address] [facility] Rad Xray [address] [place] [address] [place] [address] Referral ID Status Reason Start Date Expiration Date V isits Requested Visits Authorized [id number] Closed Specialty Service Requested 05/22/2020 11/19/2021 1 1 Encounter Details Date Type Department Care Team (Late st Contact Info) Description 05/22/2020 1:15 PM EST Office Visit Hematology and Oncology at [facility] [place] [address] Ricky Lowry MD Malignant neoplasm of lower-outer quadrant of left breast of female, estrogen receptor positive; Osteopenia of neck of femur, unspecified laterality; senior care current use of aromatase inhibitor Social History [...] ??Excision with image-guided localization ?Lymph Node Sampling: ??[place] lymph node(s) ?Specimen Laterality: ??Left Tumor ?Histologic [...] ??DCIS not present in specimen Lymph Nodes ?[place] Lymph Nodes: [place] lymph node biopsy performed ?Number of [place] Nodes Examined: ??3 ?Number of Lymph Node(s) [...] BMD measurements and plots are available in Pressy under the imaging tab. Paper copies will be sent to providers without Pressy access. If you have received this report without the data sheet and do not have access to Pressy, please contact Radiology [facility] at [phone] Thursday thru Thursday 8am-4pm. Thank you for letting us participate in the care of this patient. ??If you are a health care provider and have any questions regarding this report, please contact the number below. ??For patients who have questions please contact the health career development associate that requested your imaging first. ? Electronically signed by: Nat Epperson MD, [facility] ([phone]), at 11/19/2020 1:09 PM Narrative 11/19/2020 1:09 [...] BMD measurements and plots are available in EClearContextunder the imaging tab. Paper copies will be sent to providers without Pressy access.If you have received this report without the data sheet and do not haveaccess to EMomentCam, please contact Radiology Finish Rolls Operator at [phone] Thursday thruFriday 8am-4pm. Thank you for letting [...] inhibitors documented in this encounter Care Teams Correctional Supervisor Lieutenant Relationship Specialty Start Date End Date Ana Her MD [address] [place] [address] PCP - General 07/29/13 documented as of this encounter
--- OUTSIDE RECORDS SUMMARY | 2024-05-23 10:32 | XMS_ITS | Encounter Summary ---
Author Organization [facility] Address One [facility] [place] [address] Care Team Providers Care Tissue Technologist Name Role Phone Ana Her MD Primary Care Provider [phone] Encounter Details Date Type Department Care Team (Late st Contact Info) Description 09/13/2015 Interpretation Only Radiology [address] [facility] [place] [address] Unknown None Social History Tobacco Use Types [...] 6:56 AM EDT APD Historical Result Principal Coding Support Specialist: ??MAE ??ESCHBACH IMAGE-INTENSIFIER FILMS: INDICATION: ??Right L4 foraminotomy. FINDINGS: A total of 5.8 seconds of fluoro time was utilized by Geraldine Claros MD. ??Estimated dose is 5.96 mGy. ??Two image-intensifier films record the event. ??They show the lumbosacral junction in the lateral projection with a surgical instrument indicating the level of L4. ??No Radiologist was present for this exam. Mae Shelley DO TOBIN/mn [id number] Procedure Note Unknown - 11/01/2018 APD Historical Result Principal Coding Support Specialist: MAE SHELLEY IMAGE-INTENSIFIER FILMS: INDICATION: Right L4 foraminotomy. FINDINGS: A total of 5.8 seconds of fluoro time was utilized by Geraldine Claros MD. Estimated dose is 5.96 mGy. Two image-intensifier films record the event. They show thelumbosacral junction in the lateral projection with a surgical instrument indicating the level of L4.No Radiologist was present for this exam. Mae Shelley DO TOBIN/mn [id number] Unknown IMG FLUORO ORDERABLE S documented in this encounter Visit Diagnoses Not on filedocumented in this encounter Care Teams Tissue Technologist Relationship Specialty Start Date End Date Ana Her MD [address] [place] [address] PCP - General 07/29/13 documented as of this encounter
--- OUTSIDE RECORDS SUMMARY | 2024-05-23 10:32 | XMS_ITS | Encounter Summary ---
Author Organization [facility] Address [address] [place] [address] Care Team Providers Care Link Trainer Maintenance Worker Name Role Phone Unknown, Provider MD Primary Care Provider Unava ilable Encounter Details Date Type Department Care Team (Late st Contact Info) Description 04/06/2022 Lab Requisition [facility] Pathology & Laboratory Medicine - [facility] [address] [place] [address] Outr Resulting Lab, Provider Social History Tobacco [...] Salmonella PCR Negative Negative 04/06/2022 22:54 EST [facility] Shigella/Enteroin vasive E. coli Negative Negative 04/06/2022 22:54 EST [facility] HN LAB CAMPYLOBACTER PCR Negative Negative 04/06/2022 22:54 EST [facility] Shiga Toxin PCR Negative Negative 22:54 EST [facility] Feces SPECIMEN FROM RECTUM / Unknown 04/05/2022 10:41 EST 04/06/2022 18:31 EST us Provider Outr Resulting Lab MICROBIOLOGY - GENER AL ORDERABLES Final Result [facility] [address] [place] [address] documented in this encounter Visit Diagnoses Not on filedocumented in this encounter Care Teams Link Trainer Maintenance Worker Relationship Specialty Start Date End Date Unknown, Provider, PCP - General 01/13/14 documented as of this encounter
--- OUTSIDE RECORDS SUMMARY | 2024-05-23 10:32 | XMS_ITS | Clinical Summary ---
Author Organization [facility] Address [address] [place] [address] Care Team Providers Care Automation Application Engineer Name Role Phone Unknown, Provider MD [...] COVID-19 Vaccine (2023- season) 2024 Care Teams Automation Application Engineer Relationship Specialty Start Date End Date Unknown, Provider, PCP - General 01/13/14
--- OUTSIDE RECORDS SUMMARY | 2024-05-23 10:32 | XMS_ITS | Encounter Summary ---
[place] [address] Care Team Providers Care Tooth Clerk Name Role Phone Ana Her MD Primary Care Provider Reason for Visit * Reason Onset Date Comments Referral 07/29/2013 Encounter Details Date Type Department Care Team (Late st Contact Info) Description 07/29/2013 [place] [phone] Sophia Palacios Referral Social History Tobacco Use [...] on filedocumented in this encounter Care Teams Tooth Clerk Relationship Specialty Start Date End Date Ana Her MD [address] [facility] [address] [place] [address] PCP - General 07/29/13 documented as of this encounter
--- OUTSIDE RECORDS SUMMARY | 2024-05-23 10:32 | XMS_ITS | Encounter Summary ---
Author Organization [facility] [place] [address] Care Team Providers Care Partition Assembly Machine Operator Name Role Phone Ana Her MD Primary Care Provider [phone] Encounter Details Date Type Department Care Team (Latest Contact Info) Description 03/30/2017 8:30 AM [facility] Hospital [place] [address] Malika Chen MD [facility] [place] [address] Malignant neoplasm of upper-outer quadrant of left [...] positive documented in this encounter Care Teams Partition Assembly Machine Operator Relationship Specialty Start Date End Date Ana Her MD [address] [place] [address] PCP - General 07/29/13 documented as of this encounter
--- OUTSIDE RECORDS SUMMARY | 2024-05-23 10:32 | XMS_ITS | Encounter Summary ---
Author Organization [facility] Address [facility] [place] [address] Care Team Providers Care Cotton Program Technician Name Role Phone Unavailable Primary Care Provider Unavailabl e Encounter Details Date Type Department Care Team (Latest Contact Info) Description 12/08/2008 - 12/08/2008 11:59 PM EDT Hospital Encounter Radiology Library at [facility] [place] [address] Jackie Cisneros APRN [facility] [place] [address] Discharge Disposition: Home Social History Tobacco Use [...]
--- OUTSIDE RECORDS SUMMARY | 2024-05-23 10:32 | XMS_ITS | Encounter Summary ---
Author Organization [facility] Address [address] [place] [address] Care Team Providers Care Traffic Control Technician Name Role Phone Unknown, Provider MD Primary Care Provider Unava ilable Encounter Details Date Type Department Care Team (Late st Contact Info) Description 10/26/2022 Lab Requisition [facility] Pathology & Laboratory Medicine - [facility] [address] [place] [address] Outr Resulting Lab, Provider Social History Tobacco [...] and Giardia Antigen Neg 13:48 EDT [facility] Feces SPECIMEN FROM RECTUM / Unknown 10/25/2022 15:00 EDT 10/26/2022 15:25 EDT us Provider Outr Resulting Lab MICROBIOLOGY - GENER AL ORDERABLES Final Result [facility] [address] [place] [address] * FECAL BACTERIAL PATHOGENS BY PCR (10/25/2022 15:00 EDT) Salmonella PCR Negative Negative 10/26/2022 19:17 EDT [facility] Shigella/Enteroin vasive E. coli Negative Negative 10/26/2022 19:17 EDT [facility] HN LAB CAMPYLOBACTER PCR Negative Negative 10/26/2022 19:17 EDT [facility] Shiga Toxin PCR Negative Negative 19:17 EDT [facility] Feces SPECIMEN FROM RECTUM / Unknown 10/25/2022 15:00 EDT 10/26/2022 15:25 EDT us Provider Outr Resulting Lab MICROBIOLOGY - GENER AL ORDERABLES Final Result Performing Organization Address [facility] Co de Phone Number [facility] [address] [place] [address] * OVA/PARASITE EXAM (10/25/2022 15:00 EDT) Parasite No ova and parasites seen. 10/28/2022 15:08 EDT [facility] Feces SPECIMEN FROM RECTUM / Unknown 10/25/2022 15:00 EDT 10/26/2022 15:25 EDT Narrative [facility] - 10/28/2022 15:08 EDT (If Cryptosporidium, Cyclospora, or Microsporidium are suspected, specific tests must be requested.) Single negative specimen does not rule out the possibility of a parasitic infection. us Provider Outr Resulting Lab MICROBIOLOGY - GENER AL ORDERABLES Final Result Performing Organization Address City/[facility]/ZIP Co de Phone Number [facility] [address] [place] [address] documented in this encounter Visit Diagnoses Not on filedocumented in this encounter Care Teams Traffic Control Technician Relationship Specialty Start Date End Date Unknown, Provider, PCP - General 9/12/14 documented as of this encounter
--- OUTSIDE RECORDS SUMMARY | 2024-05-23 10:32 | XMS_ITS | Encounter Summary ---
[place] [address] Care Team Providers Care Colorist Photography Name Role Phone Ana Her MD Primary Care Provider [phone] Encounter Details Date Type Department Care Team (Latest Contact Info) Description 03/03/2017 7:55 AM EDT Laboratory Appointment Lab [address] [place] [address] Malignant neoplasm of left breast in female, [...] 7:50 AM EDT) Neutrophil % 72.8 % [facility] Neutrophil Absolute 6.45(H) 1.70 - 6.10 x10(3)/mc L [facility] Lymph % 14.4 % [facility] Lymphocytes Abs 1.3 0.9 - 3.2 x10(3)/ L [facility] Monocyte % 5.6 % [facility] Monocyte Abs 0.5 0.3 - 0.9 x10(3)/ L [facility] Eos % 6.1 % [facility] Eosinophils Abs 0.5(H) 0.0 - 0.4 x10(3)/ L [facility] Basophil % 0.6 % [facility] Baso Absolute 0.0 0.0 - 0.1 x10(3)/ L [facility] Immature Gran % 0.50 % [facility] Comment: Immature granulocytes(IG's)percentage and absolute count will include metamyelocytes, myelocytes, and promyelocytes. Blood smears from CBCs yielding IG's will be scanned manually for concordance. If this scan disagrees with the automated IG or if promyelocytes are noted, a manual differential will be performed. Immature Gran Absolute 0.04 0.00 - 0.04 x10(3)/mc L [facility] Blood specimen (specimen) 03/03/2017 7:50 AM EDT 03/03/2017 8:03 AM EDT Narrative Resulting Agency Comment Spec In Lab Malika Chen MD HEMATOLOGY ORDERABL ES [facility] [place] [address] * (ABNORMAL) Hemogram (03/03/2017 7:50 AM EDT) White Blood Cell 8.8 4.0 - 9.5 x10(3)/mc L [facility] Red Blood Cell 3.80(L) 4.00 - 5.21 x10(6)/mc L [facility] Hemoglobin 12.3 11.7 - 15.5 gm/dL [facility] Hematocrit 36.3 35.7 - 45.8 % [facility] Mean Cell Volume 95.5(H) 82.6 - 94.4 fL [facility] Mean Cell Hemoglobin 32.4(H) 27.1 - 32.0 pg [facility] Mean Cell Hemoglobin Concentration 33.9 31.7 - 35.0 gm/dL [facility] Platelet 156 145 - 357 x10(3)/ L [facility] RDW Standard Deviation 48.3(H) 37.0 - 46.0 [facility] RDW coefficient of variation 13.9 11.5 - 14.1 % [facility] Mean Platelet Volume 11.9 7.6 - 12.9 fL [facility] NRBC% auto 0.0 % [facility] NRBC Absolute 0.000 0.000 - 0.000 x10(3)/ L [facility] Blood specimen (specimen) 03/03/2017 7:50 AM EDT 03/03/2017 8:03 AM EDT Narrative Resulting Agency Comment Spec In Lab Malika Chen MD HEMATOLOGY ORDERABL ES [facility] [place] [address] * (ABNORMAL) Comprehensive metabolic panel (non-fasting) (03/03/2017 [...] LABORATORY Est Glomerular Filtration Rate 58(L) >=60 [facility] Comment: The reported eGFR should be multiplied by 1.2 for patients. The MDRD is not an appropriate measure of renal function for patients with body mass extremes or in patients with acute kidney failure. http://[employer].Umthunzi/DHnkdep http://[employer].com/DHMCnkf Blood specimen (specimen) 03/03/2017 7:50 AM EDT 03/03/2017 8:03 AM EDT Narrative Resulting Agency Comment Spec In Lab Malika Chen MD [place] [address] documented in this encounter Visit Diagnoses Diagnosis Malignant neoplasm of left breast in female, estrogen receptor positive, unspecified site of breast documented in this encounter Care Teams Colorist Photography Relationship Specialty Start Date End Date Ana Her MD [address] [place] [address] PCP - General 07/29/13 documented as of this encounter
--- OUTSIDE RECORDS SUMMARY | 2024-05-23 10:32 | XMS_ITS | Encounter Summary ---
Author Organization [place] [address] Care Team Providers Care Ore Crusher Name Role Phone Ana Her MD Primary Care Provider [phone] Encounter Details Date Type Department Care Team (Latest Contact Info) Description 02/25/2017 1:36 PM EDT - 02/25/2017 2:58 PM EDT Hospital [place] [phone] Maryam Yee MD [facility] [place] [address] Abnormal mammogram Discharge Disposition: Home Social History [...] unspecified documented in this encounter Care Teams Ore Crusher Relationship Specialty Start Date End Date Ana Her MD [address] [place] [address] [address] [place] [address] PCP - General 07/29/13 documented as of this encounter
--- OUTSIDE RECORDS SUMMARY | 2024-05-23 10:32 | XMS_ITS | Encounter Summary ---
Author Organization [facility] [place] [address] Care Team Providers Care Gas Derrick Operator Name Role Phone Ana Her MD Primary Care Provider [phone] Encounter Details Date Type Department Care Team (Late st Contact Info) Description 08/16/2014 Orders Only Functional Baptism Program at [facility] [address] [place] [address] Khari Martínez MD Social History Tobacco Use [...] filedocumented in this encounter Care Teams Gas Derrick Operator Relationship Specialty Start Date End Date Ana Her MD [facility] [address] [facility] [address] [place] [address] PCP - General 07/29/13 documented as of this encounter
--- OUTSIDE RECORDS SUMMARY | 2024-05-23 10:32 | XMS_ITS | Referral Summary ---
Author Organization [facility] Address [address] [place] [address] Care Team Providers Care Hogshead Wrecker Name Role Phone Unknown, Provider MD Primary Care Provider Unava ilable Social History Tobacco Use Types Packs/Day Years Used Date Smoking Tobacco: Never Assessed Comments Unknown Sex and Gender Information Value Date Recorded Sex Assigned at Not on file Legal Sex Female 9:32 EDT Gender Identity Not on file Sexual Orientation Not on file Plan of Treatment Not on file Care Teams Hogshead Wrecker Relationship Specialty Start Date End Date Unknown, Provider, PCP - General 01/13/14
--- OUTSIDE RECORDS SUMMARY | 2024-05-23 10:32 | XMS_ITS | Encounter Summary ---
Author Organization [facility] [place] [address] Care Team Providers Care Electrical Superintendent Name Role Phone Ana Her MD Primary Care Provider [phone] Encounter Details Date Type Department Care Team (Late st Contact Info) Description 03/30/2017 9:30 AM EST - 03/30/2017 11:28 AM EST [place] [id number] Brant Chen MD [facility] [place] [address] MASTECTOMY PARTIAL (WRVU 10.13) Social History Tobacco [...] shower 24 hours Activity as tolerated Call [phone] with any questions Do not soak incision [...] was obtained which revealed IDC which is ER/OK+, her2-. She has no known breast masses, no adenopathy, no nipple discharge. ?? Alma Delia had a bone scan in [place] which was read as possible metastasis in the left tibia. Of note- she fractured this area recently. She has recovered well. ?? PMH HNT NIDDM not on meds Spinal stenosis Fractured left tibial plateau [place], 2017 GERD ?? FH: Maternal first cousin with breast cancer Brother with rectal cancer Sister with PE ? SH: lives alone. Has good support from sisters who live in [place]. Non smoker. Has a son who lives [...] 71 yo female with radiographic stage I ER/OK+, HER2- IDC of the left breast. No [...] 03/30/2017 12:27 PM EST [facility] [place] Patient Name: Digna Olson : [id number] MR#: [id number] Case Date: 03/30/2017 Surgeon: Surgeon(s) and Role: [...] [place] [id number]. Remaining count within the axilla was 1982. [...] PM EST 03/30/2017 12:09 PM EST Narrative [facility] - 03/30/2017 12:09 PM EST Specimen requisition ordered. ??Separate Pathology report to follow Brant Chen MD PATHOLOGY/CYTOLOGY ORDERABLES [facility] [place] [address] * Specimen to Pathology (surgical or derm) (03/30/2017 12:08 PM EST) AP Specimen 03/30/2017 12:0 8 PM EST 03/30/2017 12:08 PM EST Narrative [facility] - 03/30/2017 12:08 PM EST Specimen requisition ordered. ??Separate Pathology report to follow Brant Chen MD PATHOLOGY/CYTOLOGY ORDERABLES Performing Organization Address [facility] Co de Phone Number [facility] [place] [address] * Specimen to Pathology (surgical or derm) (03/30/2017 12:00 PM EST) AP Specimen 03/30/2017 12:0 0 PM EST 03/30/2017 12:00 PM EST Narrative [facility] - 03/30/2017 12:00 PM EST Specimen requisition ordered. ??Separate Pathology report to follow Brant Chen MD PATHOLOGY/CYTOLOGY ORDERABLES Performing Organization Address [facility] [place] [address] * Specimen to Pathology (surgical or derm) (03/30/2017 11:51 AM EST) AP Specimen 03/30/2017 11:5 1 AM EST 03/30/2017 11:51 AM EST Narrative [facility] - 03/30/2017 11:51 AM EST Specimen requisition ordered. ??Separate Pathology report to follow Brant Chen MD PATHOLOGY/CYTOLOGY ORDERABLES Performing Organization Address [facility] Co de Phone Number [facility] [place] [phone] * Surgical Pathology Report (03/30/2017 11:50 AM EST) Final Diagnosis [id number] ? Location: [facility]; [facility]; A The signing pathologist has (i) examined the relevant preparation(s) for the specimen(s) and (ii) rendered or confirmed the diagnosis(es). . ?Surgical Pathology DIAGNOSIS A,B - See Synoptic C - Left breast, Deep/lateral margin re-excision - ?Benign fatty breast tissue. D - Left breast, Superficial margin re-excision - ?Benign fatty breast tissue. See Note Note - [place] ink (indicating additional cranial margin) is also present on this superficial margin re-excision. ---- Specimen Parts: ?? A - Left axilliary sentinel node B - Left breast partial mastectomy Specimen ? Procedure: ??Excision with image-guided localization ? Lymph Node Sampling: ?? [place] lymph node(s) ? Specimen Laterality: ?? Left [...] not present in specimen Lymph Nodes ? [place] Lymph Nodes: ?? [place] lymph node biopsy performed ? Number of [place] Nodes Examined: ?3 ? Number of Lymph [...] ??04/01/2017 ?Pathologist Performed at: ??-[facility] [place], [place], [place] CLINICAL INFORMATION Specimen Submitted: A - [...] margins. per [facility] Radiology . Specimen Description: [...] 0.8 x 0.4 x 0.4 cm. Color: [place] and yellow. Consistency: Soft. Location: Slices III and IV. Nearest Margin: 0.6 cm to the cranial margin. Other Margins: 0.8 cm to the deep margin, 1.0 cm to the superficial margin, ? > 2 cm from all other margins. OTHER Parenchyma: Predominately fatty with scant fibrous tissue. Wire/Clip: Biopsy marker clip identified within slice IV. SECTIONS/PROCESSI NG: (1) corporate representative slice I, lateral margin; (2) slice III, lesion to cranial margin; (3-5) remainder of slice III; (6) slice IV, lesion to cranial margin (clip); (7-8) remainder of slice IV; (9) corporate representative slice V; (10) corporate representative slice X, medial margin. (R10) Ischemic [...] sectioned. (T3) ??sns 04/01/2017 9:38 AM EST [facility] BREAST STRUCTURE / Unknown 03/30/2017 11:50 AM EST 03/30/2017 11:50 AM EST BREAST STRUCTURE / Unknown 03/30/2017 11:50 AM EST 03/30/2017 11:50 AM EST BREAST STRUCTURE / Unknown 03/30/2017 11:50 AM EST 03/30/2017 11:50 AM EST BREAST STRUCTURE / Unknown 03/30/2017 11:50 AM EST 03/30/2017 11:50 AM EST Brant Chen MD PATHOLOGY/CYTOLOGY ORDERABLES [facility] [place] [address] * Mammo Direct Digital Left (03/30/2017 9:15 [...] Routine documented in this encounter Care Teams Electrical Superintendent Relationship Specialty Start Date End Date Ana Her MD [address] [place] [address] PCP - General 07/29/13 documented as of this encounter
--- OUTSIDE RECORDS SUMMARY | 2024-05-23 10:32 | XMS_ITS | Encounter Summary ---
Author Organization [place] [address] Care Team Providers Care Stadium Manager Name Role Phone Ana Her MD Primary Care Provider [phone] Encounter Details Date Type Department Care Team (Latest Contact Info) Description 02/17/2017 12:15 AM EDT - 02/17/2017 11:59 PM EDT Hospital Encounter Radiology Library at [facility] [place] [address] Maryam Yee MD [facility] [place] [address] Screening breast examination Discharge Disposition: Home Social [...] Yee MD IMG FILM LIBRARY O RDERABLES [place], [place] documented in this encounter Visit Diagnoses Diagnosis Screening breast examination Other screening breast examination documented in this encounter Care Teams Stadium Manager Relationship Specialty Start Date End Date Ana Her MD [address] [place] [address] PCP - General 07/29/13 documented as of this encounter
--- OUTSIDE RECORDS SUMMARY | 2024-05-23 10:32 | XMS_ITS | Encounter Summary ---
Author Organization [facility] Address [address] [place] [address] Care Team Providers Care Hook Loader Name Role Phone Unknown, Provider MD Primary Care Provider Unava ilable Encounter Details Date Type Department Care Team (Late st Contact Info) Description 11/19/2023 Lab Requisition [facility] Pathology & Laboratory Medicine - [facility] [address], [place] [address] Outr Resulting Lab, Provider Social History Tobacco [...] 201 - 352 mg/dL 11/20/2023 9:45 EDT [facility] Blood VENOUS BLOOD / Unknown 11/19/2023 6:05 EDT 11/19/2023 17:32 EDT us Provider Outr Resulting Lab CHEMISTRY & BLOOD GA S ORDERABLES Final Result [facility] [address] [place], [place] [address] documented in this encounter Visit Diagnoses Not on filedocumented in this encounter Care Teams Hook Loader Relationship Specialty Start Date End Date Unknown, Provider, PCP - General 01/13/14 documented as of this encounter
--- OUTSIDE RECORDS SUMMARY | 2024-05-23 10:32 | XMS_ITS | Encounter Summary ---
Author Organization [facility] [place] [address] Care Team Providers Care Cdl Flatbed Truck Driver Name Role Phone Ana Her MD Primary Care Provider [phone] Encounter Details Date Type Department Care Team (Latest Contact Info) Description 03/30/2017 8:30 AM [facility] Hospital En[place] [address] Malika Chen MD [facility] [place] [address] Malignant neoplasm of upper-outer quadrant of left [...] mg documented in this encounter Care Teams Cdl Flatbed Truck Driver Relationship Specialty Start Date End Date Ana Her MD [address] [place] [address] PCP - General 07/29/13 documented as of this encounter
--- OUTSIDE RECORDS SUMMARY | 2024-05-23 10:32 | XMS_ITS | Encounter Summary ---
[place] [address] Care Team Providers Care Working Manager Name Role Phone Ana Her MD Primary Care Provider [phone] Reason for Visit * Reason Comments Low Back Pain Bilateral Hip Pain when standing or wal jaquelin Encounter Details Date Type Department Care Team (Late st Contact Info) Description 09/12/2014 11:20 AM EDT Office [place] [phone] Kris Benoit MD Neurogenic claudication due to [...] pain free. Lumbar MRI from 08/16/2014 from [facility] is notable for multilevel degenerative changes L2-L3, L3-L4, L4-L5, L5-S1. At L2-L3, she has yjypdvds-dv-mvexyl spinal stenosis, but she has no leg [...] claudication documented in this encounter Care Teams Working Manager Relationship Specialty Start Date End Date Ana Her MD [address] [place] [address] PCP - General 07/29/13 documented as of this encounter
--- OUTSIDE RECORDS SUMMARY | 2024-05-23 10:32 | XMS_ITS | Encounter Summary ---
[place] [address] Care Team Providers Care Teasel Gig Operator Name Role Phone Ana Her MD Primary Care Provider [phone] Encounter Details Date Type Department Care Team (Late st Contact Info) Description 03/18/2017 Telephone [place] [phone] Bryanna Marsh RN Social History Tobacco Use [...] notes she had a colonoscopy done at [facility] and developed atrial fibrillation; she has been started on blood thinners. She was just discharged from the [facility] hospital, and called us [...] give Digna a call her number is [phone]. The below is from Dr. Chen visit [...] on filedocumented in this encounter Care Teams Teasel Gig Operator Relationship Specialty Start Date End Date Ana Her MD [address] [place] [address] PCP - General 07/29/13 documented as of this encounter
--- OUTSIDE RECORDS SUMMARY | 2024-05-23 10:32 | XMS_ITS | Encounter Summary ---
[place] [address] Care Team Providers Care Firmware Architect Name Role Phone Ana Her MD Primary Care Provider [phone] Encounter Details Date Type Department Care Team (Latest Contact Info) Description 03/30/2017 7:27 AM EST - 03/30/2017 1:37 PM EST Hospital Encounter [place] [phone] Brant Chen MD [facility] [place] [address] Discharge Disposition: Home Social History Tobacco Use [...] shower 24 hours Activity as tolerated Call [phone] with any questions Do not soak incision [...] Alma Delia had a bone scan in [place] which was read as possible metastasis in the left tibia. Of note- she fractured this area recently. She has recovered well. ?? PMH HNT NIDDM not on meds Spinal stenosis Fractured left tibial plateau December, GERD ?? FH: Maternal first cousin with breast cancer Brother with rectal cancer Sister with PE ? SH: lives alone. Has good support from sisters who live in [place]. Non smoker. Has a son who lives [...] Chen MD - 03/30/2017 12:27 PM EST [facility] Operative Note Patient Name: Digna Olson : [id number] MR#: [id number] Case Date: 03/30/2017 Surgeon: Surgeon(s) and Role: [...] [place] [address]. Remaining count within the axilla was 1982. [...] PM EST 03/30/2017 12:09 PM EST Narrative [facility] - 03/30/2017 12:09 PM EST Specimen requisition ordered. ??Separate Pathology report to follow Brant Chen MD PATHOLOGY/CYTOLOGY ORDERABLES [facility] [place] [address] * Specimen to Pathology (surgical or derm) (03/30/2017 12:08 PM EST) AP Specimen 03/30/2017 12:0 8 PM EST 03/30/2017 12:08 PM EST Narrative [facility] - 03/30/2017 12:08 PM EST Specimen requisition ordered. ??Separate Pathology report to follow Brant Chen MD PATHOLOGY/CYTOLOGY ORDERABLES Performing Organization Address [facility] [place] [address] * Specimen to Pathology (surgical or derm) (03/30/2017 12:00 PM EST) AP Specimen 03/30/2017 12:0 0 PM EST 03/30/2017 12:00 PM EST Narrative [facility] - 03/30/2017 12:00 PM EST Specimen requisition ordered. ??Separate Pathology report to follow Brant Chen MD PATHOLOGY/CYTOLOGY ORDERABLES Performing Organization Address [facility] Co de Phone Number [place] [phone] * Specimen to Pathology (surgical or derm) (03/30/2017 11:51 AM EST) AP Specimen 03/30/2017 11:5 1 AM EST 03/30/2017 11:51 AM EST Narrative [facility] - 03/30/2017 11:51 AM EST Specimen requisition ordered. ??Separate Pathology report to follow Brant Chen MD PATHOLOGY/CYTOLOGY ORDERABLES Performing Organization Address [facility] [place] [address] * Surgical Pathology Report (03/30/2017 11:50 AM EST) Final Diagnosis [id number] ? Location: [facility]; [facility]; A The signing pathologist has (i) examined the relevant preparation(s) for the specimen(s) and (ii) rendered or confirmed the diagnosis(es). . ?Surgical Pathology DIAGNOSIS A,B - See Synoptic C - Left breast, Deep/lateral margin re-excision - ?Benign fatty breast tissue. D - Left breast, Superficial margin re-excision - ?Benign fatty breast tissue. See Note Note - [place] ink (indicating additional cranial margin) is also present on this superficial margin re-excision. ---- Specimen Parts: ?? A - Left axilliary sentinel node B - Left breast partial mastectomy Specimen ? Procedure: ??Excision with image-guided localization ? Lymph Node Sampling: ?? [place] lymph node(s) ? Specimen Laterality: ?? Left [...] not present in specimen Lymph Nodes ? [place] Lymph Nodes: ?? [place] lymph node biopsy performed ? Number of [place] Nodes Examined: ?3 ? Number of Lymph [...] Chávez DO Verified: ??04/01/2017 ?Pathologist Performed at: ??-[facility] Dept. of Pathology, [place], [place] CLINICAL INFORMATION Specimen Submitted: A - [...] and there are ??no close margins. per [facility] Radiology . Specimen Description: According to the established protocol the ink designations are red (medial), yellow (lateral), orange (cranial), green (caudal), black (deep) and blue (superficial). Tissue Sections: The specimen is serially sectioned perpendicular to the long axis from lateral to medial into X slices, each averaging 0.45 cm in thickness. LESION Description: Biopsy site. Size: 0.8 x 0.4 x 0.4 cm. Color: [place] and yellow. Consistency: Soft. Location: Slices III and IV. Nearest Margin: 0.6 cm to the cranial margin. Other Margins: 0.8 cm to the deep margin, 1.0 cm to the superficial margin, ? > 2 cm from all other margins. OTHER Parenchyma: Predominately fatty with scant fibrous tissue. Wire/Clip: Biopsy marker clip identified within slice IV. SECTIONS/PROCESSI NG: (1) passenger representative slice I, lateral margin; (2) slice III, lesion to cranial margin; (3-5) remainder of slice III; (6) slice IV, lesion to cranial margin (clip); (7-8) remainder of slice IV; (9) passenger representative slice V; (10) passenger representative slice X, medial margin. (R10) Ischemic [...] sectioned. (T3) ??sns 04/01/2017 9:38 AM EST [facility] BREAST STRUCTURE / Unknown 03/30/2017 11:50 AM EST 03/30/2017 11:50 AM EST BREAST STRUCTURE / Unknown 03/30/2017 11:50 AM EST 03/30/2017 11:50 AM EST BREAST STRUCTURE / Unknown 03/30/2017 11:50 AM EST 03/30/2017 11:50 AM EST BREAST STRUCTURE / Unknown 03/30/2017 11:50 AM EST 03/30/2017 11:50 AM EST Brant Chen MD PATHOLOGY/CYTOLOGY ORDERABLES [facility] [place] [address] * Mammo Direct Digital Left (03/30/2017 9:15 [...] Routine documented in this encounter Care Teams Firmware Architect Relationship Specialty Start Date End Date Ana Her MD [address] [place] [address] PCP - General 07/29/13 documented as of this encounter
--- OUTSIDE RECORDS SUMMARY | 2024-05-23 10:32 | XMS_ITS | Encounter Summary ---
Author Organization [facility] [place] [address] Care Team Providers Care Mail Sorter And Delivery Name Role Phone Ana Her MD Primary Care Provider [phone] Encounter Details Date Type Department Care Team (Latest Contact Info) Description 02/25/2017 1:32 PM EDT - 02/25/2017 1:35 PM EDT Hospital En[place] [phone] Maryam Yee MD [facility] [place] [address] Abnormal mammogram Discharge Disposition: Home Social History [...] PATHOLOGY/CYTOLOGY O [facility] [place] [address] documented in this encounter Visit Diagnoses Diagnosis [...] mg documented in this encounter Care Teams Mail Sorter And Delivery Relationship Specialty Start Date End Date Ana Her MD [address] [place] [address] PCP - General 07/29/13 documented as of this encounter
--- OUTSIDE RECORDS SUMMARY | 2024-05-23 10:32 | XMS_ITS | Encounter Summary ---
[place] [address] Care Team Providers Care Sap Bw Architect Name Role Phone Ana Her MD Primary Care Provider [phone] 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 * Surgical (Routine) - Closed Specialty Diagnoses / Procedures Referred By Christiano hackett Referred To Contact Orthopaedics Diagnoses Lumbar spinal stenosis Michelle Hurtado APRN [facility] [place] [address] [facility] [address] [address] [place] [address] Referral ID Status Reason Start Date Expiration Date V isits Requested Visits Authorized [id number] Closed Consult, Test & Treat 09/08/2014 09/08/2015 3 3 Encounter Details Date Type Department Care Team (Late st Contact Info) Description 09/08/2014 Orders [place] [address] Michelle Hurtado [facility] [place] [address] Lumbar spinal stenosis Social History Tobacco Use [...] claudication documented in this encounter Care Teams Sap Bw Architect Relationship Specialty Start Date End Date Ana Her MD [facility] [address] [facility] [address] [place] [address] PCP - General 07/29/13 documented as of this encounter
--- OUTSIDE RECORDS SUMMARY | 2024-05-23 10:32 | XMS_ITS | Encounter Summary ---
Author Organization [facility] Address [facility] [place] [address] Care Team Providers Care Footwear Sales Representative Name Role Phone Ana Her MD Primary Care Provider [phone] Encounter Details Date Type Department Care Team (Latest Contact Info) Description 10/28/2016 - 10/28/2016 11:59 PM EDT Hospital Encounter Radiology Library at [facility] [address] Ricky Lowry MD Discharge Disposition: Home Social [...] DXA Images (10/28/2016 12:00 AM EDT) Narrative [facility] - 04/24/2017 2:13 PM EST This exam is for storage only and is auto-finalizing. Ricky Lowry MD IMG FILM LIBRARY ORD ERABLES Performing Organization Address City/State/[facility] Co de Phone Number [place], [place] documented in this encounter Visit Diagnoses Not on filedocumented in this encounter Care Teams Footwear Sales Representative Relationship Specialty Start Date End Date Ana Her MD [address] [place] [address] PCP - General 07/29/13 documented as of this encounter
--- OUTSIDE RECORDS SUMMARY | 2024-05-23 10:32 | XMS_ITS | Encounter Summary ---
[place] [address] Care Team Providers Care Web Analyst Name Role Phone Ana Her MD Primary Care Provider [phone] Encounter Details Date Type Department Care Team (Late st Contact Info) Description 07/26/2013 [place] [address] Ana Her MD [facility] [address] [place] [address] Social History Tobacco Use Types Packs/Day Years [...] 03/28/2014 This is a Non-reportable exam Ana eHr MD [facility] FILM LIBRARY ORD ERABLES documented in this encounter Visit Diagnoses Not on filedocumented in this encounter Care Teams Web Analyst Relationship Specialty Start Date End Date Ana Her MD [address] [place] [address] PCP - General 07/29/13 documented as of this encounter
--- OUTSIDE RECORDS SUMMARY | 2024-05-23 10:32 | XMS_ITS | Encounter Summary ---
Author Organization [place] [address] Care Team Providers Care Community Integration Specialist Name Role Phone Ana Her MD Primary Care Provider [phone] Encounter Details Date Type Department Care Team (Late st Contact Info) Description 03/04/2017 Orders Only [place] [address] Malika Chen MD [facility] [place] [address] Malignant neoplasm of upper-outer quadrant of left [...] MD IMG MAMMO ORDERABLE S * Mammo [place] Node Injection (03/30/2017 9:01 AM EST) Anatomical [...] documented in this encounter Care Teams Community Integration Specialist Relationship Specialty Start Date End Date Ana Her MD [address] [email or web address] [address] [place] [address] PCP - General 07/29/13 documented as of this encounter
--- OUTSIDE RECORDS SUMMARY | 2024-05-23 10:32 | XMS_ITS | Encounter Summary ---
[place] [address] Care Team Providers Care Washcoat Wiper Name Role Phone Ana Her MD Primary Care Provider [phone] Reason for Visit * Reason Comments Establish Care * Consultation (Routine) - Specialty Diagnoses / Procedures Referred By Christiano hackett Referred To Contact Hematology and Oncology Diagnoses Other abnormal and inconclusive findings on diagnostic imaging of breast abnormal mammo, left breast Jackie Cisneros, WENDY [address] [place] [address] [facility] [address] [place] [address] Referral ID Status Reason Start Date Expiration Date V isits Requested Visits Authorized [id number] Consult, Test & Treat Connection Center 02/17/2017 05/20/2017 6 6 Encounter Details Date Type Department Care Team (Late st Contact Info) Description 03/03/2017 9:00 AM EDT Office [place] [address] Malika Chen MD [facility] [address] Argentina Sanchez, RN Malignant neoplasm [...] she will meet with medical and radiation ([facility]) oncologists after surgery. 4. Contact phone number for questions or concerns in the immediate post- operative period. 5. Comprehensive Breast Program Binder. 6. Post Breast Surgery Exercises handout created by physical therapists at [facility]. 7. Breast Cancer Treatment Process care map provided and reviewed. 8. Things to Consider...What I Wish I Knew advice from breast cancer patients handout provided. She verbalized understanding of the plan of care and states all her questions were answered. Twentyminutes was spent in education and providing support. Alma Delia has our contact information. 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 She has no known breast masses, no adenopathy, no nipple discharge. Alma Delia had a bone scan in [place] which was read as possible metastasis in the left tibia. Of note- she fractured this area recently. She has recovered well. PMH HNT NIDDM not on meds Spinal stenosis Fractured left tibial plateau December, GERD FH: Maternal first cousin with breast cancer Brother with rectal cancer Sister with PE SH: lives alone. Has good support from sisters who live in [place]. Non smoker. Has a son who lives [...] 71 yo female with radiographic stage I ER/ME+, HER2- IDC of the left breast. No [...] positive documented in this encounter Care Teams Washcoat Wiper Relationship Specialty Start Date End Date Ana Her MD [address] [place] [address] PCP - General 07/29/13 documented as of this encounter
--- OUTSIDE RECORDS SUMMARY | 2024-05-23 10:32 | XMS_ITS | Encounter Summary ---
Author Organization [facility] Address [facility] [place] [address] Care Team Providers Care Routing Clerk Name Role Phone Unavailable Primary Care Provider Unavailabl e Encounter Details Date Type Department Care Team (Latest Contact Info) Description 01/29/2013 - 01/29/2013 11:59 PM EDT Hospital Encounter Radiology Library at [facility] [place] [place] [address] Jackie Cisneros APRN [facility] [place] [address] [address] [place] [address] Discharge Disposition: Home Social History Tobacco Use [...] Only Mammo (01/29/2013 12:00 AM EDT) Narrative [facility] - 02/23/2017 3:26 PM EDT This exam is for storage only and is auto-finalizing. Jackie Cisneros APRN IMG FILM LIBRARY ORD ERABLES NADINE Sethi documented in this encounter Visit Diagnoses Not on filedocumented in this encounter
--- OUTSIDE RECORDS SUMMARY | 2024-05-23 10:32 | XMS_ITS | Encounter Summary ---
Author Organization [facility] [place] [address] Care Team Providers Care Farm Management Professor Name Role Phone Ana Her MD Primary Care Provider [phone] Encounter Details Date Type Department Care Team (Late st Contact Info) Description 02/27/2017 Orders [place] [address] Malika Chen MD [facility] [place] [address] Malignant neoplasm of left breast in female, [...] or in patients with acute kidney failure. [email or web address] Blood specimen (specimen) 03/03/2017 7:50 AM EDT 03/03/2017 8:03 AM EDT Narrative Resulting Agency Comment Spec In Lab Malika Chen MD CHEMISTRY ORDERABLE [facility] [place] [address] documented in this encounter Visit Diagnoses Diagnosis Malignant neoplasm of left breast in female, estrogen receptor positive, unspecified site of breast documented in this encounter Care Teams Farm Management Professor Relationship Specialty Start Date End Date Ana Her MD [address] [facility] [address] [place] [address] PCP - General 07/29/13 documented as of this encounter
--- OUTSIDE RECORDS SUMMARY | 2024-05-23 10:32 | XMS_ITS | Encounter Summary ---
Author Organization [facility] Address [facility] [place] [address] Care Team Providers Care Transportation Supervisor Name Role Phone Unavailable Primary Care Provider Unavailabl e Encounter Details Date Type Department Care Team (Latest Contact Info) Description 12/19/2009 - 12/19/2009 11:59 PM EDT Hospital Encounter Radiology Library at [facility] [place] [address] Jackie Cisneros APRN [facility] [place] [address] Discharge Disposition: Home Social History Tobacco Use [...] Only Mammo (12/19/2009 12:00 AM EDT) Narrative [facility] - 02/23/2017 3:29 PM EDT This exam is for storage only and is auto-finalizing. Jackie Cisneros APRN IMG FILM LIBRARY ORD ERABLES NADINE Sethi documented in this encounter Visit Diagnoses Not on filedocumented in this encounter
--- OUTSIDE RECORDS SUMMARY | 2024-05-23 10:32 | XMS_ITS | Encounter Summary ---
[place] [address] Care Team Providers Care Farm Rancher Name Role Phone Ana Her MD Primary Care Provider Encounter Details Date Type Department Care Team (Late st Contact Info) Description 04/09/2017 Abstract Radiation Oncology at [address] [phone] Maria A Antonio, RN Social History Tobacco [...] filedocumented in this encounter Care Teams Farm Rancher Relationship Specialty Start Date End Date Ana Her MD [address] [place] [address] PCP - General 07/29/13 documented as of this encounter
--- OUTSIDE RECORDS SUMMARY | 2024-05-23 10:32 | XMS_ITS | Encounter Summary ---
Author Organization [facility] Address [facility] [place] [address] Care Team Providers Care Vertical Boring Mill Operator Name Role Phone Ana Her MD Primary Care Provider [phone] Encounter Details Date Type Department Care Team (Latest Contact Info) Description 04/24/2014 - 04/24/2014 11:59 PM EST Hospital Encounter Radiology Library at [facility] [place] [address] Maryam Yee MD [facility] [place] [address] Screening breast examination Discharge Disposition: Home Social [...] Only Mammo (04/24/2014 12:00 AM EST) Narrative [facility] - 02/19/2017 1:46 PM EDT This exam is for storage only and is auto-finalizing. Maryam Yee MD IMG FILM LIBRARY O RDERABLES [place], [place] documented in this encounter Visit Diagnoses Diagnosis Screening breast examination Other screening breast examination documented in this encounter Care Teams Vertical Boring Mill Operator Relationship Specialty Start Date End Date Ana Her MD [address] [facility] 1 [place] [address] PCP - General 07/29/13 documented as of this encounter
--- OUTSIDE RECORDS SUMMARY | 2024-05-23 10:32 | XMS_ITS | Encounter Summary ---
Author Organization [facility] Address [facility] [place] [address] Care Team Providers Care Charting Clerk Name Role Phone Ana Her MD Primary Care Provider [phone] Reason for Visit * Reason Comments Radiation Consult * Consultation (Routine) - Closed Specialty Diagnoses / Procedures Referred By Christiano hackett Referred To Contact Radiation Oncology Diagnoses Breast cancer Malika Chen MD [facility] [place] [address] Stj Rad Onc Office [address] [place] [phone] Referral ID Status Reason Start Date Expiration Date Visits Re quested Visits Authorized [id number] Closed 03/17/2017 03/17/2018 1 1 Encounter Details Date Type Department Care Team (Late st Contact Info) Description 04/13/2017 10:00 AM EST Office Visit Radiation Oncology at [address] [address] Faye Velez MD [facility] [place] [address] Malignant neoplasm of left female breast, unspecified [...] cm from nipple. 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 03/03/[address] [...] she is being evaluated for afib @ [facility]. 04/15/17; has been wearing a ziopatch [...] [facility] MA[facility] OR ??? PRO MASTECTOMY, PARTIAL Left 03/30/2017 MASTECTOMY PARTIAL (WRVU 10.13) performed by Malika Chen MD at [facility] MAIN OR Your Medications These changes [...] A: Breast ca, L, mucinous, gr 2, ER+MA+, Her2 neg, s/p lumpectomy & SNB, pT1b [...] treated breast; cough; shortness of breath; tiredness. Late/computer terminal operator side effects to breast discussed [...] breast documented in this encounter Care Teams Charting Clerk Relationship Specialty Start Date End Date Ana Her MD [address] [place] [address] PCP - General 07/29/13 documented as of this encounter
--- OUTSIDE RECORDS SUMMARY | 2024-05-23 10:32 | XMS_ITS | Encounter Summary ---
Author Organization [facility] [place] [address] Care Team Providers Care Vat Skimmer Name Role Phone Ana Her MD Primary Care Provider [phone] Encounter Details Date Type Department Care Team (Late st Contact Info) Description 03/03/2017 [place] [address] January Ward MSW Social History Tobacco Use Types Packs/Day Years Used Date Smoking Tobacco: Never Smokeless Tobacco: Never Sex and Gender Information Value Date Recorded Sex Assigned at Not on file Gender Identity Not on file Sexual Orientation Not on file documented as of this encounter Progress Notes * January [place] MSW - 03/03/2017 12:56 PM EDT OFFICE OF CARE MANAGEMENT/CONTINUING SUPPLY AND DISTRIBUTION MANAGER Reason for referral: Digna Olson is a 71 year old, female who was seen in the multidisciplinarybreast care clinic for a surgical consult as she was recently diagnosed with ER/VA+, left breast, invasive mucinous carcinoma. After meeting with Dr. Chen, pt has decided to have a lumpectomy/SLNB. If pt needs radiation therapy, she will [place] [facility] [place] [facility] met with pt to complete a psychosocial assessment and to explain my role in the breast program. Pt was encouraged to contact me if she has any questions or concerns. Living arrangements/social supports: Pt lives alone in [place], [place]. She has support from her family and is accompanied to today's appt by her sisters who live in [place]. Employment/Insurance/Finances: Pt is retired and receives Social [...] Antonia Oliva is the SW [facility] Plan: [facility] will continue to follow pt to assess and assist with their psychosocial needs. DELONTE Moreno Comprehensive Breast [facility]/[place] [phone] Pager #[phone] documented in this encounter Plan of Treatment Not on file documented as of this encounter Visit Diagnoses Not on filedocumented in this encounter Care Teams Vat Skimmer Relationship Specialty Start Date End Date Ana Her MD [address] [place] [address] PCP - General 07/29/13 documented as of this encounter
--- OUTSIDE RECORDS SUMMARY | 2024-05-23 10:32 | XMS_ITS | Encounter Summary ---
Author Organization [facility] Address [facility] [place] [address] Care Team Providers Care Installation Superintendent Name Role Phone Unavailable Primary Care Provider Unavailabl e Encounter Details Date Type Department Care Team (Latest Contact Info) Description 11/12/2007 - 11/12/2007 11:59 PM EDT Hospital Encounter Radiology Library at [facility] [place] [address] Jackie Cisneros APRN [facility] [place] [address] [place] [address] Discharge Disposition: Home Social History Tobacco Use [...] Only Mammo (11/12/2007 12:00 AM EDT) Narrative [facility] - 02/23/2017 3:31 PM EDT This exam is for storage only and is auto-finalizing. Jackie Cisneros APRN IMG FILM LIBRARY ORD ERABLES NADINE Sethi documented in this encounter Visit Diagnoses Not on filedocumented in this encounter
--- OUTSIDE RECORDS SUMMARY | 2024-05-23 10:32 | XMS_ITS | Encounter Summary ---
Author Organization [facility] Address [facility] [place] [address] Care Team Providers Care Blanker Press Operator Name Role Phone Ana Her MD Primary Care Provider [phone] Encounter Details Date Type Department Care Team (Latest Contact Info) Description 02/17/2017 - 02/17/2017 12:14 AM EDT Hospital Encounter Radiology Library [place] [address] Maryam Yee MD [facility] [place] [address] Screening breast examination Discharge Disposition: Home Social [...] Only Mammo (02/17/2017 12:00 AM EDT) Narrative [facility] - 02/19/2017 1:59 PM EDT This exam is for storage only and is auto-finalizing. Maryam Yee MD IMG FILM LIBRARY O RDERABLES Performing Organization Address City/State/[facility] Co de Phone Number [place], [place] documented in this encounter Visit Diagnoses Diagnosis Screening breast examination Other screening breast examination documented in this encounter Care Teams Blanker Press Operator Relationship Specialty Start Date End Date Ana Her MD [address] [place] [address] PCP - General 07/29/13 documented as of this encounter
--- OUTSIDE RECORDS SUMMARY | 2024-05-23 10:32 | XMS_ITS | Encounter Summary ---
Author Organization [facility] [place] [address] Care Team Providers Care Oil Lease Broker Name Role Phone Ana Her MD Primary Care Provider [phone] Encounter Details Date Type Department Care Team (Latest Contact Info) Description 03/30/2017 8:30 AM [facility] Hospital [place] [address] Malika Chen MD [facility] [place] [address] Malignant neoplasm of upper-outer quadrant of left [...] documented in this encounter Results * Mammo Carney Node Injection (03/30/2017 9:01 AM EST) Anatomical [...] mCi documented in this encounter Care Teams Oil Lease Broker Relationship Specialty Start Date End Date Ana Her MD [address] [place] [address] PCP - General 07/29/13 documented as of this encounter
--- OUTSIDE RECORDS SUMMARY | 2024-05-23 10:32 | XMS_ITS | Encounter Summary ---
Author Organization [facility] Address [facility] [place] [address] Care Team Providers Care Software Development Leader Name Role Phone Unavailable Primary Care Provider Unavailabl e Encounter Details Date Type Department Care Team (Latest Contact Info) Description 04/04/2005 - 04/04/2005 11:59 PM EST Hospital Encounter Radiology Library at [facility] [place] [address] Jackie Cisneros APRN [facility] [place] [address] Discharge Disposition: Home Social History Tobacco Use [...]
--- OUTSIDE RECORDS SUMMARY | 2024-05-23 10:32 | XMS_ITS | Encounter Summary ---
Author Organization [facility] [place] [address] Care Team Providers Care Telecommunicator Name Role Phone Ana Her MD Primary Care Provider [phone] Encounter Details Date Type Department Care Team (Latest Contact Info) Description 02/25/2017 2:59 PM EDT - 02/25/2017 11:59 PM EDT Hospital [place] [phone] Enzo Burkett MD Abnormal finding on breast [...] associated with invasive carcinoma. Enzo Burkett MD [facility] MAMMO ORDERABLES * Surgical Pathology Report (02/25/2017 3:01 PM EDT) Final Diagnosis [id number] ? Location: 3L The signing pathologist has [...] FISH. ??Direct analysis was performed using the Tabblo Kit. ??Slide adequacy and signal enumeration were [...] factor receptor 2 testing in breast cancer: [place] [employer] On[employer]/College [employer] [place] [employer]ologists clinical practice guideline update. J Clin Oncol. 2013 Nov . Reviewed by: Kyara Logan MD Pediatric Allergist, Molecular Pathology _ Electronically signed by: ??Epifanio Serra MD Verified: ??03/04/2017 ?Pathologist Performed at: ??-[facility] Dept. of Pathology, [place], [place] ? Addendum ADDENDUM DISCUSSION Immunohistochemist ry [...] The assays were performed according to the pharmacist ' s instructions using Anti-ER (SP1) and Anti-WV (16) antibodies. Electronically signed by: ??Epifanio Serra MD Verified: ??02/27/2017 ?Pathologist Performed at: ??-[facility] Dept. of Pathology, [place], [place] ?Surgical Pathology DIAGNOSIS Needle biopsies: ?Left breast Diagnosis: ?Invasive mucinous carcinoma (see Discussion) ?Intermediate grade, modified SBR score = 6 Microcalcification s: ??Few calcifications associated with invasive carcinoma Electronically signed by: ??Ponce MELTON, Epifanio Gamez Verified: ??02/26/2017 ?Pathologist Performed at: ??-[facility] Dept. of Pathology, [place], [place] DISCUSSION Studies for ER, WV, and [...] g: (T4) ??elian 03/04/2017 2:[address] [facility] BREAST STRUCTURE / Unknown 02/25/2017 3:01 PM EDT 02/25/2017 3:01 PM EDT Enzo Burkett MD PATHOLOGY/CYTOLOGY O RDERABLES [facility] [place] [address] documented in this encounter Visit Diagnoses Diagnosis Abnormal finding on breast imaging Other (abnormal) findings on radiological examination of breast documented in this encounter Care Teams Telecommunicator Relationship Specialty Start Date End Date Ana Her MD [address] [place] [address] PCP - General 07/29/13 documented as of this encounter
--- OUTSIDE RECORDS SUMMARY | 2024-05-23 10:32 | XMS_ITS | Encounter Summary ---
[place] [address] Care Team Providers Care Applications Architect Name Role Phone Ana Her MD Primary Care Provider [phone] Reason for Visit * Reason Comments Low Back Pain Encounter Details Date Type Department Care Team (Late st Contact Info) Description 08/30/2014 8:35 AM EDT Office [place] [phone] Michelle Hurtado APRN [facility] [place] [address] Neurogenic claudication due to lumbar spinal stenosis [...] this encounter Progress Notes * Michelle Hurtado, CLIENT SUPPORT PROFESSIONAL - 08/30/2014 9:37 AM EDT CHIEF COMPLAINT: [...] activity. 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 MEDICATIONS & [...] care of this patient. Michelle Hurtado MS, CLIENT SUPPORT PROFESSIONAL, CHEMICAL RECLAMATION EQUIPMENT OPERATOR-C [facility] documented in this encounter Plan of Treatment Not on file documented as of this encounter Visit Diagnoses Diagnosis Neurogenic claudication due to lumbar spinal stenosis Spinal stenosis, lumbar region, with neurogenic claudication documented in this encounter Care Teams Applications Architect Relationship Specialty Start Date End Date Ana Her MD [address] [place] [address] PCP - General 07/29/13 documented as of this encounter
--- OUTSIDE RECORDS SUMMARY | 2024-05-23 10:32 | XMS_ITS | Encounter Summary ---
Author Organization [facility] Address [facility] [place] [address] Care Team Providers Care Hand Tool Filer Name Role Phone Ana Her MD Primary Care Provider [phone] Encounter Details Date Type Department Care Team (Latest Contact Info) Description 02/12/2017 - 02/12/2017 11:59 PM EDT Hospital Encounter Radiology Library at [facility] [place] [address] Maryam Yee MD [facility] [place] [address] Screening breast examination Discharge Disposition: Home Social [...] Mammo (02/12/2017 12:00 AM EDT) Narrative [facility] - 02/19/2017 1:47 PM EDT This exam is for storage only and is auto-finalizing. Maryam Yee MD IMG FILM LIBRARY O RDERABLES Performing Organization Address City/State/[facility] Co de Phone Number [place], [place] documented in this encounter Visit Diagnoses Diagnosis Screening breast examination Other screening breast examination documented in this encounter Care Teams Hand Tool Filer Relationship Specialty Start Date End Date Ana Her MD [address] [place] [address] PCP - General 07/29/13 documented as of this encounter
--- OUTSIDE RECORDS SUMMARY | 2024-05-23 10:32 | XMS_ITS | Encounter Summary ---
[facility] Address [facility] [place] [address] Care Team Providers Care Visual Merchandising Associate Name Role Phone Ana Her MD Primary Care Provider [phone] Encounter Details Date Type Department Care Team (Latest Contact Info) Description 02/23/2017 3:50 PM EDT - 02/23/2017 11:59 PM EDT Hospital Encounter Radiology Library at [facility] [place] [phone] Jackie Cisneros APRN [address] [place] [address] Left breast mass Discharge Disposition: Home Social [...] recommended. Please note: The interpretation of the [facility] Breast Imaging Radiologist subspecialist may differ from the original radiologists interpretation. This is usually not due to a deficiency of the original interpreting radiologist, rather due to the greater skill level afforded by sub-specialization in the field and/or reasonable variations in interpretations. If you have a concern regarding the D-H interpretation you may contact the [facility] Breast Head Of Data Office at . I have personally reviewed [...] the care of this patient. STUDIES FROM: [facility] DATES: Screening mammogram 02/12/2017, diagnostic mammogram [...] alter the care of thispatient. STUDIES FROM: [facility] DATES: Screening mammogram 02/12/2017, diagnostic mammogram [...] recommended. Please note: The interpretation of the [facility] BreastImaging Radiologist subspecialist may differ from the original radiologists interpretation. This is usually not due to a deficiency of the original interpreting radiologist, rather due to the greater skill level affordedby sub-specialization in the field and/or reasonable variations ininterpretations. If you have a concern regarding the D-H interpretation [facility] Head [facility] at . I have personally reviewed the image(s) and the residents interpretationand agree with the findings, ROBERT THOMPSON at 02/24/2017 8:41 AM 8:41 AM Jackie Cisneros WEND[facility] IMG OUTSIDE INTERPRE TATION ORDERABLES documented in this encounter Visit Diagnoses Diagnosis Left breast mass Lump or mass in breast documented in this encounter Care Teams Visual Merchandising Associate Relationship Specialty Start Date End Date Ana Her MD [address] [place] [address] PCP - General 07/29/13 documented as of this encounter
--- OUTSIDE RECORDS SUMMARY | 2024-05-23 10:32 | XMS_ITS | Encounter Summary ---
Author Organization [facility] Address [facility] [place] [address] Care Team Providers Care Professional Organizer Name Role Phone Unavailable Primary Care Provider Unavailabl e Encounter Details Date Type Department Care Team (Latest Contact Info) Description 03/19/2006 - 03/19/2006 11:59 PM EST Hospital Encounter Radiology Library at [facility] [place] [address] Jackie Cisneros APRN [facility] [place] [address] [place] [address] Discharge Disposition: Home Social History Tobacco Use [...]
--- OUTSIDE RECORDS SUMMARY | 2024-05-23 10:32 | XMS_ITS | Encounter Summary ---
[place] [address] Care Team Providers Care Rap Artist Name Role Phone Ana Her MD Primary Care Provider [phone] Encounter Details Date Type Department Care Team (Late st Contact Info) Description 02/27/2017 Telephone [place] [phone] Argentina Sanchez RN Social History Tobacco Use [...] (left breast U/S guided biopsy 02/25/2017 at [facility] Alma Delia sounds positive and has support. She will have someone accompany her to appointments. She appears to be coping well but is anxious to meet with a breast surgeon to determine a treatment plan. Alma Delia have a bone SPECT done 1-2 months ago at [facility] and her doctor there questioned an [...] for her review (a link to the [facility] Early Stage Breast Cancer program). [...] on filedocumented in this encounter Care Teams Rap Artist Relationship Specialty Start Date End Date Ana Her MD [address] [place] [address] PCP - General 07/29/13 documented as of this encounter
--- OUTSIDE RECORDS SUMMARY | 2024-05-23 10:32 | XMS_ITS | Encounter Summary ---
Author Organization [facility] Address [facility] [place] [address] Care Team Providers Care Drop Hammer Setter Up Name Role Phone Unavailable Primary Care Provider Unavailabl e Encounter Details Date Type Department Care Team (Latest Contact Info) Description 12/25/2010 - 12/25/2010 11:59 PM EDT Hospital Encounter Radiology Library at [facility] [place] [address] Jackie Cisneros APRN [facility] [place] [address] [address] [place] [address] Discharge Disposition: Home Social History Tobacco Use [...]
--- OUTSIDE RECORDS SUMMARY | 2024-05-23 10:32 | XMS_ITS | Encounter Summary ---
Author Organization [facility] [place] [address] Care Team Providers Care Office Spec Name Role Phone Ana Her MD Primary Care Provider [phone] Encounter Details Date Type Department Care Team (Late st Contact Info) Description 03/30/2017 [place] [address] January Ward MSW Social History Tobacco Use [...] was recently diagnosed with invasive mucinous carcinoma. [facility] attempted to meet with pt in Same Day surgery this morning but she was still in radiology. I spoke with her ex-, Keith, who states she will be staying with him tondenise. Their granddaughters are traveling from [place] and plan to accompany pt to see her recreation therapy aides teacher at [facility] tomorrow. Pt has been followed by this physician for her cardiac problems. [facility] will continue to provide support and resources to pt. documented in this encounter Plan of Treatment Not on file documented as of this encounter Visit Diagnoses Not on filedocumented in this encounter Care Teams Office Spec Relationship Specialty Start Date End Date Ana Her MD [address] [facility] [address] [place] [address] PCP - General 07/29/13 documented as of this encounter
--- OUTSIDE RECORDS SUMMARY | 2024-05-23 10:32 | XMS_ITS | Encounter Summary ---
Author Organization [facility] [place] [address] Care Team Providers Care Air Intelligence Officer Name Role Phone Ana Her MD Primary Care Provider [phone] Encounter Details Date Type Department Care Team (Latest Contact Info) Description 02/25/2017 1:31 PM EDT Hospital [place] [address] Maryam Yee MD [facility] [place] [address] Abnormal mammogram Discharge Disposition: Home Social History [...] unspecified documented in this encounter Care Teams Air Intelligence Officer Relationship Specialty Start Date End Date Ana Her MD [address] [place] [address] PCP - General 07/29/13 documented as of this encounter
--- OUTSIDE RECORDS SUMMARY | 2024-05-23 10:32 | XMS_ITS | Encounter Summary ---
[place] [address] Care Team Providers Care Electrical Contractor Name Role Phone Ana Her MD Primary Care Provider [phone] Encounter Details Date Type Department Care Team (Late st Contact Info) Description 03/30/2017 11:19 AM EST Anesthesia Event [place] [address] Bridgette Mclaughlin MD Collins, Sarah J, BRAKE MECHANIC [address] [place] [address] Anesthesia Record Procedure Summary Procedure Name Responsible [...] 0815; median cubital vein (antecubital fossa), right; [id number] catheter system; 20 gauge, 1 in length; [...] Mclaughlin - 03/30/2017 2:13 PM EST [facility] Department of Anesthesiology Post-procedure Note Patient: Digna Olson Procedure Summary Date Anesthesia Start Anesthesia Stop Room / Location 03/30/17 1119 1239 [facility] OR 24 / MH MAIN OR Procedure [...] All Anesthesia Providers: Anesthesiologist: Bridgette Mclaughlin MD BRAKE MECHANIC: Laura Koo CRNA Most Recent Vitals: 03/30/17 [...] risks discussed with patient. Plan discussed with BRAKE MECHANIC. [facility] Staff Note documented in this encounter Plan [...] r documented in this encounter Care Teams Electrical Contractor Relationship Specialty Start Date End Date Ana Her MD [facility] [address] [place] [address] PCP - General 07/29/13 documented as of this encounter
--- OUTSIDE RECORDS SUMMARY | 2024-05-23 10:32 | XMS_ITS | Encounter Summary ---
Author Organization [facility] [address] Care Team Providers Care Hydrogen Power Plant Engineer Name Role Phone Ana Her MD Primary Care Provider [phone] Encounter Details Date Type Department Care Team (Late st Contact Info) Description 03/19/2017 Telephone [place] [address] Malika Chen MD [facility] [place] [address] Social History Tobacco Use Types Packs/Day Years [...] no unexpected bleeding. Surgery is scheduled in [facility]. documented in this encounter Plan of Treatment Not on file documented as of this encounter Visit Diagnoses Not on filedocumented in this encounter Care Teams Hydrogen Power Plant Engineer Relationship Specialty Start Date End Date Ana Her MD [address] [facility] [address] [place] [address] PCP - General 07/29/13 documented as of this encounter
--- OUTSIDE RECORDS SUMMARY | 2024-05-23 10:33 | XMS_ITS | Encounter Summary ---
Author Organization [facility] Address [address] [place] [address] Care Team Providers Care Post Office Manager Name Role Phone Unknown, Provider Primary Care Provider Unava ilable Encounter Details Date Type Department Care Team (Late st Contact Info) Description 03/17/2017 Results Only [facility] [phone] Kat Lazaro MD [facility] [address] [place], [place] [id number] Social History Tobacco Use Types Packs/Day Years [...] ? DIGNA KIMBROUGH ? Accession #: ? [id number] ? : ? 1945 (Age: 71) ??F ? Collect Date: ? 03/17/2017 ? Location: ? [facility] ? Receive Date: ? 03/17/2017 ? Provider: KAT LAZARO MD Copy to: ERICH LORENZ MD ? Final Pathologic Diagnosis: COLON, TRANSVERSE POLYP, BIOPSY: - ??Hyperplastic polyp. - ??Deeper levels examined. Document reviewed and electronically signed by: IHREN HUGHES MD Report ??Date: 03/19/2017 15:16 By [...] (ASCP) 03/18/2017 8:14 AM End of Report [facility] 03/17/2017 16:1 5 EST 03/17/2017 16:15 EST us Kat Lazaro MD PATHOLOGY ORDERABLES Fin al Result [facility] [address] [place] [address] documented in this encounter Visit Diagnoses Not on filedocumented in this encounter Care Teams Post Office Manager Relationship Specialty Start Date End Date Unknown, Provider, PCP - General 01/13/14 documented as of this encounter
--- OUTSIDE RECORDS SUMMARY | 2024-05-23 10:33 | XMS_ITS | Encounter Summary ---
Author Organization [facility] Address [address] [place] [address] Care Team Providers Care Barrel Stave Inspector Name Role Phone Unavailable Primary Care Provider Unavailabl e Encounter Details Date Type Department Care Team (Latest Contact Info) Description 01/10/2014 20:50 EDT - 01/10/2014 23:[address] [facility] [address] [place] [address] Unknown, Provider, MD Discharge Disposition: Home or [...] Code Departure Means Destination Home or Self Half-Way documented in this encounter Plan of Treatment Not on file documented as of this encounter Visit Diagnoses Not on filedocumented in this encounter
--- OUTSIDE RECORDS SUMMARY | 2024-05-23 10:33 | XMS_ITS | Encounter Summary ---
Author Organization [facility] Address [address] [place] [address] Care Team Providers Care Shellfish Farming Supervisor Name Role Phone Unknown, Provider MD Primary Care Provider Unava ilable Encounter Details Date Type Department Care Team (Late st Contact Info) Description 08/12/2021 Lab Requisition [facility] Pathology & Laboratory Medicine - [facility] [address] [place] [address] Outr Resulting Lab, Provider Social History Tobacco [...] Priority Date/Time Associated Diagnosis Comments ZZCOVID-19 TEST [facility] PCR Today 08/12/2021 15:00 EDT COVID-19 TESTING Routine 08/12/2021 15:0 0 EDT documented in this encounter Results * COVID-19 TEST [facility] PCR (08/12/2021 15:00 EDT) Swab 08/12/2021 15:0 0 EDT 08/13/2021 16:56 EDT us Provider Outr Resulting Lab MICROBIOLOGY - GENER AL ORDERABLES Final Result [facility] [address] [place] [address] * COVID-19 TESTING (08/12/2021 15:00 EDT) COVID-19 rt-PCR Result Negative Negative 08/14/2021 11:53 EDT [facility] Comment: This test has [...] was performed using the palomo SARS-CoV-2 assay ([employer] on the Palomo 6800 System Performing Lab [facility] [address] [facility] 08/14/2021 11:53 EDT [facility] Swab 08/12/2021 15:0 0 EDT 08/13/2021 16:56 EDT us Provider Outr Resulting Lab MICROBIOLOGY - GENER AL ORDERABLES Final Result [facility] [address] [place] [address] documented in this encounter Visit Diagnoses Not on filedocumented in this encounter Care Teams Shellfish Farming Supervisor Relationship Specialty Start Date End Date Unknown, Provider, PCP - General 01/13/14 documented as of this encounter
--- OUTSIDE RECORDS SUMMARY | 2024-05-23 10:33 | XMS_ITS | Encounter Summary ---
Author Organization [facility] Address [address] [place] [address] Care Team Providers Care Wound Treatment Rn Name Role Phone Unknown, Provider Primary Care Provider Unava ilable Encounter Details Date Type Department Care Team (Late st Contact Info) Description 01/20/2020 Lab Requisition [facility] Pathology & Laboratory Medicine - [facility] [address] [place] [address] Outr Resulting Lab, Provider Social History Tobacco [...] rt-PCR Result NEGATIVE Negative 01/21/2020 16:10 EDT [facility] Comment: 2019-novel Coronavirus (2019-nCoV) [...] AL ORDERABLES Final Result Performing Organization Address City/State/[facility] Co de Phone Number [facility] [place], [place] * COVID-19 TESTING (01/20/2020 10:30 EDT) COVID-19 rt-PCR Result NEGATIVE Negative 01/21/2020 17:21 EDT [facility] Comment: 2019-novel Coronavirus (2019-nCoV) not detected [...] Administration's Emergency Use Authorization. Performing Lab [facility] 01/21/2020 17:21 EDT [facility] Swab 01/20/2020 10:3 0 EDT 01/20/2020 15:35 EDT us Provider Outr Resulting Lab MICROBIOLOGY - GENER AL ORDERABLES Final Result [facility] [address] [place] [address] [facility] [place], [place] documented in this encounter Visit Diagnoses Not on filedocumented in this encounter Care Teams Wound Treatment Rn Relationship Specialty Start Date End Date Unknown, Provider, PCP - General 01/13/14 documented as of this encounter
--- OUTSIDE RECORDS SUMMARY | 2024-05-25 10:50 | XMS_ITS | Data Portability ---
Author Organization [place] [facility] [place] [address] Care Team Providers Care Cosmetic Counselor Name Role Phone GABINODC Ip/Mosaic Technician [facility] Orthopedic Surgeon [facility] Sleep Medicine [facility] Chief Wharfinger Assessment Encounter Date Assessment Date Assessment LastModified by Organization Details LastModified Time 12/02/2023 12/02/2023 The total time devoted to today's encounter, including both the zqlt-ov-mukf time with the patient and/or family/caregi josefina and uep-nlnq-te-f patrick time I personally spent is 35 minutes. Not available 12/02/2023 14:47:23 03/04/2024 03/04/2024 The total time devoted to today's encounter, including both the qfpf-nx-omns time with the patient and/or family/caregi josefina and asa-cwax-ul-f patrick time I personally spent is 44 minutes. Not available 03/04/2024 17:47:18 05/23/2024 05/23/2024 The total time devoted to today's encounter, including both the dayg-yl-cjzi time with the patient and/or family/caregi josefina and bzb-nxhe-tr-f patrick time I personally spent is 42 minutes. Not available 05/23/2024 15:47:33 Plan of Treatment Reminders Order Date Submit Date Provider Last Modified By Organization Details Last Modified Time Details Appointments None recorded. Lab BMP, serum or plasma 2023 024 [facility] (Registration ), [address] [place] [address] [place], [address], 4 08:56:49 magnesium, serum or plasma 2023 024 [facility] (Registration ), [address] [place] [address] [place], [address], 4 07:38:05 BNP (B-type natriureti c peptide), serum or plasma 2023 024 [facility] (Registration ), [address] [place] [address] [place], [address], 4 20:48:47 CBC 2023 024 [facility] (Registration ), [address] [place] [address] [place], [address], 4 16:35:23 BMP, serum or plasma 2023 024 [facility] (Registration ), [address] [place] [address] [place], [address], 4 11:42:49 vitamin D, 25-hydroxy , total, serum 2023 024 [facility] (Registration ), [address] [place] [address] [place], [address], 4 16:09:19 HbA1c (hemoglobi n A1c), blood 2023 024 [facility] (Registration ), [address] [place] [address] [place], [address], 4 11:39:49 TSH, serum, reflex free T4 2023 024 [facility] (Registration ), [address] [place] [address] [place], [address], 4 11:40:25 CBC 2023 [facility] (Registration ), [address] [place] [address] [place], [address], 4 15:08:25 ferritin, serum or plasma 2023 [facility] (Registration ), [address] [place] [address] [place], [address], 4 11:41:22 iron + total iron-lynn ng capacity (TIBC), serum 2023 [facility] (Registration ), [address] [place] [address] [place], [address], 4 11:43:17 BMP, serum or plasma 2023 [facility] (Registration ), [address] [place] [address] [place], [address], 4 11:42:49 vitamin D, 25-hydroxy , total, serum 2023 [facility] (Registration ), [address] [place] [address] [place], [address], 4 16:09:19 HbA1c (hemoglobi n A1c), blood 2023 [facility] (Registration ), [address] [place] [address] [place], [address], 4 11:39:49 TSH, serum, reflex free T4 2023 [facility] (Registration ), [address] [place] [address] [place], [address], 4 11:40:25 CBC 2023 [facility] (Registration ), [address] [place] [address] [place], [address], 4 15:08:25 ferritin, serum or plasma 2023 024 [facility] (Registration ), [address] [place] [address] [place], [address], 4 11:41:22 iron + total iron-lynn ng capacity (TIBC), serum 2023 [facility] (Registration ), [address] [place] [address] [place], [address], 4 11:43:17 Referral gastroente rologist referral - You saw Alma Delia just over a year ago with diarrhea. 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 She has been going to cardiac rehab and making progress. She has less edema and a bit less fatigue. She continues to have daily diarrhea, worse if she eats anything. She has lost significan t weight- 20 pounds in the last year. She uses colestipol just 1 gram BID, states she takes a break periodical ly for fear of becoming constipate d, which occurred when she was in rehab (though was also given narcotics for her pain). I have suggested that she try titrating it up. She states she was tested again for cdif while at rehab and was negative. [address] [facility], [address] [facility], [place], [address], 5 09:45:21 Procedures None recorded. Surgeries None recorded. Imaging None recorded. Medication Orders furosemide 80 mg tablet 2023 [facility], [address], [address], [place], [address], 14:49:38 spironolac tone 25 mg tablet [email or web address], [address] [place] [address], [address], [place], [address], 4 12:50:28 lisinopril 5 mg tablet 2023 024 [facility], [address] [place] [address], [address], [address], 4 13:19:32 carvedilol 25 mg tablet 2023 024 [facility], [address] [place] [address], [address], [place], [address], 4 12:42:49 hydromorph one 2 mg tablet 2023 024 [facility], [address] [place], [address], 4 15:12:30 levothyrox ine 75 mcg tablet [email or web address] [place] [address] [facility], [address] [place], [address], 4 16:32:19 colestipol 1 gram tablet 2024 025 [facility], [address] [place] [address], [facility] [address], [address], 5 14:26:17 carvedilol 25 mg tablet 2024 025 [facility], [address] [place] [address], [facility] [address], [address], 5 14:26:15 Patient TargetsNo targets recorded. Patient InstructionsNo instructions recorded. 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 She has been going to cardiac rehab and making progress. She has less edema and a bit less fatigue. She continues to have daily diarrhea, worse if she eats anything. She has lost significant weight- 20 pounds in the last year. She uses colestipol just 1 gram BID, states she takes a break periodically for fear of becoming constipated, which occurred when she was in rehab (though was also given narcotics for her pain). I have suggested that she try titrating it up. She states she was tested again for cdif while at rehab and was negative. Referring Physician: Erich Her, Family Medicine, Encounter Date: 05/23/2024 Results Created Date Observation Date Name Description Value Unit Range Abnormal Flag Note LastModifiedBy Organization Detail LastModifiedTime 11/18/19 24 11/18/2023 LACTA TE lactate 1.0 mmol/ L 0.6-1. 4 normal Not Available [address] [place], [address] 11/18/2023 15:53:33 11/18/19 24 11/18/2023 COMPL ETE BLOOD COUNT W/DIF F WBC 8.69 10_3/ uL 4.4-10 .8 normal Not Available [address], [address] 11/18/2023 15:57:13 11/18/19 24 11/18/2023 COMPL ETE BLOOD COUNT W/DIF F RBC 3.16 10_6/ uL 3.93-5 .22 low Not Available [address], [address] 11/18/2023 15:57:13 11/18/19 24 11/18/2023 COMPL ETE BLOOD COUNT W/DIF F HGB 10.7 g/dL 11.2-1 5.7 low Not Available [address], [address] 11/18/2023 15:57:13 11/18/19 24 11/18/2023 COMPL ETE BLOOD COUNT W/DIF F HCT 33.0 % 36.0-4 6.0 low Not Available [address], [address] 11/18/2023 15:57:13 11/18/19 24 11/18/2023 COMPL ETE BLOOD COUNT W/DIF F MCV 104 fL 80-95 high Not Available Ethel [address] [place], [address] 11/18/2023 15:57:13 11/18/19 24 11/18/2023 COMPL ETE BLOOD COUNT W/DIF F MCH 33.9 pg 27.0-3 3.0 high Not Available [address] [place], [address] 11/18/2023 15:57:13 11/18/19 24 11/18/2023 COMPL ETE BLOOD COUNT W/DIF F MCHC 32.4 % 32.0-3 6.0 normal Not Available [address] [place], [address] 11/18/2023 15:57:13 11/18/19 24 11/18/2023 COMPL ETE BLOOD COUNT W/DIF F RDW 14.6 % 11.7-1 4.6 normal Not Available [address] [place], [address] 11/18/2023 15:57:13 11/18/19 24 11/18/2023 COMPL ETE BLOOD COUNT W/DIF F platelet count 134 10_3/ uL 130-40 0 normal Not Available [address] [place], [address] 11/18/2023 15:57:13 11/18/19 24 11/18/2023 COMPL ETE BLOOD COUNT W/DIF F MPV 11.2 fL 8.0-11 .0 high Not Available [address] [place], [address] 11/18/2023 15:57:13 11/18/19 24 11/18/2023 COMPL ETE BLOOD COUNT W/DIF F neutrophils % 74.8 % Not Available [address] [place], [address] 11/18/2023 15:57:13 11/18/19 24 11/18/2023 COMPL ETE BLOOD COUNT W/DIF F lymphocytes % 13.2 % Not Available [address] [place], [address] 11/18/2023 15:57:13 11/18/19 24 11/18/2023 COMPL ETE BLOOD COUNT W/DIF F monocytes % 5.9 % Not Available [address] [place], [address] 11/18/2023 15:57:13 11/18/19 24 11/18/2023 COMPL ETE BLOOD COUNT W/DIF F eosinophils % 5.2 % Not Available [address] [place], [address] 11/18/2023 15:57:13 11/18/19 24 11/18/2023 COMPL ETE BLOOD COUNT W/DIF F basophils % 0.6 % Not Available [address] [place], [address] 11/18/2023 15:57:13 11/18/19 24 11/18/2023 COMPL ETE BLOOD COUNT W/DIF F immature grans % 0.3 % Not Available [address] [place], [address] 11/18/2023 15:57:13 11/18/19 24 11/18/2023 COMPL ETE BLOOD COUNT W/DIF F nucleated RBC 0.0 % 0.0-0. 3 normal Not Available [address], [address] 11/18/2023 15:57:13 11/18/19 24 11/18/2023 COMPL ETE BLOOD COUNT W/DIF F absolute neutrophil count 6.50 10_3/ uL 1.2-6. 7 normal Not Available [address], [address] 11/18/2023 15:57:13 11/18/19 24 11/18/2023 COMPL ETE BLOOD COUNT W/DIF F absolute lymphocyte count 1.15 10_3/ uL 1.2-3. 4 low Not Available [address], [address] 11/18/2023 15:57:13 11/18/19 24 11/18/2023 COMPL ETE BLOOD COUNT W/DIF F absolute monocyte count 0.51 10_3/ uL 0.1-0. 8 normal Not Available [address], [address] 11/18/2023 15:57:13 11/18/19 24 11/18/2023 COMPL ETE BLOOD COUNT W/DIF F absolute eosinophil count 0.45 10_3/ uL 0.0-0. 7 normal Not Available [address], [address] 11/18/2023 15:57:13 11/18/19 24 11/18/2023 COMPL ETE BLOOD COUNT W/DIF F absolute basophil count 0.05 10_3/ uL 0.0-0. 2 normal Not Available [address], [address] 11/18/2023 15:57:13 11/18/19 24 11/18/2023 PROTH ROMBI N TIME prothrombin time 10.5 sec 9.1-11 .1 normal Not Available [address] [place], [address] 11/18/2023 16:14:17 11/18/19 24 11/18/2023 PROTH ROMBI N TIME INR 1.0 0.9-1. 1 normal Recom noel d INR thera peuti c range s for orall y admin ister ed drugs are as follo ws: -Jair dard Inten sity 2.0 to 3.0 -High er Inten sity 3.0 to 4.5 Not Available [address] [place], [address] 11/18/2023 16:14:17 11/18/19 24 11/18/2023 PTT ACTIV ATED PTT activated 19.6 sec 23.6-3 2.8 low Hepar in Thera peuti c Range for PTT = 52-84 secon ds New Hepar in Thera peuti c Range 06/09 Not Available [address] [place], [address] 11/18/2023 16:14:18 11/18/19 24 11/18/2023 COMPR EHENS NADEEM METAB OLIC PANEL calcium 9.0 mg/dL 8.5-10 .1 normal Not Available [address] [place], [address] 11/18/2023 16:19:21 11/18/19 24 11/18/2023 COMPR EHENS NADEEM METAB OLIC PANEL glucose 100 mg/dL 74-106 normal Not Available Ethel green [address] [place], [address] 11/18/2023 16:19:21 11/18/19 24 11/18/2023 COMPR EHENS NADEEM METAB OLIC PANEL BUN 15 mg/dL 7-18 normal Not Available Ethel [address] [place], [address] 11/18/2023 16:19:21 11/18/19 24 11/18/2023 COMPR EHENS NADEEM METAB OLIC PANEL creatinine 1.0 mg/dL 0.55-1 .02 normal Not Available [address] [place], [address] 11/18/2023 16:19:21 11/18/19 24 11/18/2023 COMPR EHENS [...] young er-ag ed adult s. Not Available [address] [place], [address] 11/18/2023 16:19:21 11/18/19 24 11/18/2023 COMPR EHENS NADEEM METAB OLIC PANEL total protein 6.8 g/dL 6.4-8. 2 normal Not Available [address], [address] 11/18/2023 16:19:21 11/18/19 24 11/18/2023 COMPR EHENS NADEEM METAB OLIC PANEL albumin 3.8 g/dL 3.4-5. 0 normal Not Available [address] [place], [address] 11/18/2023 16:19:21 11/18/19 24 11/18/2023 COMPR EHENS NADEEM METAB OLIC PANEL bilirubin, total 0.92 mg/dL 0.2-1. 0 normal Not Available [address] [place], [address] 11/18/2023 16:19:21 11/18/19 24 11/18/2023 COMPR EHENS NADEEM METAB OLIC PANEL alk phos 68 U/L 46-116 normal Not Available [address], [address] 11/18/2023 16:19:21 11/18/19 24 11/18/2023 COMPR EHENS NADEEM METAB OLIC PANEL sodium 144 mmol/ L 136-14 5 normal Not Available [address] [place], [address] 11/18/2023 16:19:21 11/18/19 24 11/18/2023 COMPR EHENS NADEEM METAB OLIC PANEL potassium 3.6 mmol/ L 3.5-5. 1 normal Not Available [address] [place], [address] 11/18/2023 16:19:21 11/18/19 24 11/18/2023 COMPR EHENS NADEEM METAB OLIC PANEL chloride 106 mmol/ L 98-107 normal Not Available [address] [place], [address] 11/18/2023 16:19:21 11/18/19 24 11/18/2023 COMPR EHENS NADEEM METAB OLIC PANEL CO2 29.6 mmol/ L 21.0-3 2.0 normal Not Available [address] [place], [address] 11/18/2023 16:19:21 11/18/19 24 11/18/2023 COMPR EHENS NADEEM METAB OLIC PANEL anion gap 8.4 mmol/ L 3-11 normal Not Available [address] [place], [address] 11/18/2023 16:19:21 11/18/19 24 11/18/2023 COMPR EHENS NADEEM METAB OLIC PANEL AST 15 U/L 15-37 normal Not Available Ethel green [address] [place], [address] 11/18/2023 16:19:21 11/18/19 24 11/18/2023 COMPR EHENS NADEEM METAB OLIC PANEL ALT 16 U/L 14-59 normal Not Available Ethel green [address] [place], [address] 11/18/2023 16:19:21 11/18/19 24 11/18/2023 MAGNE SIUM magnesium 1.9 mg/dL 1.8-2. 4 normal Not Available [address] [place], [address] 11/18/2023 16:19:21 11/18/19 24 11/18/2023 LIPAS E lipase 24 U/L 16-77 normal Not Available Ethel green [address] [place], [address] 11/18/2023 16:19:22 11/18/19 24 11/18/2023 TROPO LUCIA I troponin I < 50 NG/L < or =60 Not Available [address] [place], [address] 11/18/2023 16:19:22 11/18/19 24 11/18/2023 NT-RI OBNP nt-probnp 3052 pg/mL <300 high NT-pr [...] false negat nadeem resul ts. Not Available [address] [place], [address] 11/18/2023 16:19:23 11/18/19 24 11/18/2023 TSH (W/RE F FT4) TSH (w/ref FT4) 0.49 uIU/m L 0.36-3 .74 normal Not Available [address], [address] 11/18/2023 16:22:20 11/18/19 24 11/18/2023 URINA LYSIS color Yellow yellow Not Available Ethel green [address] [place], [address] 11/18/2023 19:26:06 11/18/19 24 11/18/2023 URINA LYSIS clarity Clear clear Not Available Ethel green [address] [place], [address] 11/18/2023 19:26:06 11/18/19 24 11/18/2023 URINA LYSIS specific gravity 1.015 1.005- 1.025 normal Not Available [address], [address] 11/18/2023 19:26:06 11/18/19 24 11/18/2023 URINA LYSIS pH 6.5 5-8 normal Not Available Ethel green [address] [place], [address] 11/18/2023 19:26:06 11/18/19 24 11/18/2023 URINA LYSIS leukocyte esterase Small negati ve abnormal Not Available [address] [place], [address] 11/18/2023 19:26:06 11/18/19 24 11/18/2023 URINA LYSIS nitrite Negati ve negati ve Not Available [address], [address] 11/18/2023 19:26:06 11/18/19 24 11/18/2023 URINA LYSIS protein Negati ve mg/dL neg-tr patrick Not Available [address] [place], [address] 11/18/2023 19:26:06 11/18/19 24 11/18/2023 URINA LYSIS glucose Negati ve mg/dL negati ve Not Available [address] [place], [address] 11/18/2023 19:26:06 11/18/19 24 11/18/2023 URINA LYSIS ketones Negati ve mg/dL negati ve Not Available [address] [place], [address] 11/18/2023 19:26:06 11/18/19 24 11/18/2023 URINA LYSIS urobilinogen 0.2 mg/dL up to 0.2 Not Available [address] [place], [address] 11/18/2023 19:26:06 11/18/19 24 11/18/2023 URINA LYSIS bilirubin Negati ve negati ve Not Available [address] [place], [address] 11/18/2023 19:26:06 11/18/19 24 11/18/2023 URINA LYSIS blood Negati ve negati ve Not Available [address] [place], [address] 11/18/2023 19:26:06 11/18/19 24 11/18/2023 URINA LYSIS color Yellow yellow Not Available Ethel green [address] [place], [address] 11/18/2023 20:30:25 11/18/19 24 11/18/2023 URINA LYSIS clarity Clear clear Not Available Ethel green [address] [place], [address] 11/18/2023 20:30:25 11/18/19 24 11/18/2023 URINA LYSIS specific gravity 1.015 1.005- 1.025 normal Not Available [address] [place], [address] 11/18/2023 20:30:25 11/18/19 24 11/18/2023 URINA LYSIS pH 6.5 5-8 normal Not Available Ethel green [address] [place], [address] 11/18/2023 20:30:25 11/18/19 24 11/18/2023 URINA LYSIS leukocyte esterase Small negati ve abnormal Not Available [address] [place], [address] 11/18/2023 20:30:25 11/18/19 24 11/18/2023 URINA LYSIS nitrite Negati ve negati ve Not Available [address] [place], [address] 11/18/2023 20:30:25 11/18/19 24 11/18/2023 URINA LYSIS protein Negati ve mg/dL neg-tr patrick Not Available [address] [place], [address] 11/18/2023 20:30:25 11/18/19 24 11/18/2023 URINA LYSIS glucose Negati ve mg/dL negati ve Not Available [address] [place], [address] 11/18/2023 20:30:25 11/18/19 24 11/18/2023 URINA LYSIS ketones Negati ve mg/dL negati ve Not Available [address] [place], [address] 11/18/2023 20:30:25 11/18/19 24 11/18/2023 URINA LYSIS urobilinogen 0.2 mg/dL up to 0.2 Not Available [address] [place], [address] 11/18/2023 20:30:25 11/18/19 24 11/18/2023 URINA LYSIS bilirubin Negati ve negati ve Not Available [address] [place], [address] 11/18/2023 20:30:25 11/18/19 24 11/18/2023 URINA LYSIS blood Negati ve negati ve Not Available [address] [place], [address] 11/18/2023 20:30:25 11/18/19 24 11/18/2023 MICRO SCOPI C FINDI NGS WBC 3-5 hpf 0-5 Not Available Ethel green [address] [place], [address] 11/18/2023 20:30:25 11/18/19 24 11/18/2023 MICRO SCOPI C FINDI NGS RBC Negati ve hpf 0-2 Not Available Joel smith [address] [place], [address] 11/18/2023 20:30:25 11/18/19 24 11/18/2023 MICRO SCOPI C FINDI NGS epithelial cells Many hpf negati ve Not Available [address] [place], [address] 11/18/2023 20:30:25 11/18/19 24 11/18/2023 MICRO SCOPI C FINDI NGS bacteria Few hpf negati ve Not Available [address] [place], [address] 11/18/2023 20:30:25 11/18/19 24 11/18/2023 MICRO SCOPI C FINDI NGS crystals Negati ve hpf negati ve Not Available [address] [place], [address] 11/18/2023 20:30:25 11/18/19 24 11/18/2023 MICRO SCOPI C FINDI NGS mucus Trace negati ve Not Available [address], [address] 11/18/2023 20:30:25 11/18/19 24 11/18/2023 MICRO SCOPI C FINDI NGS C S indicated? No Not Available [address] [place], [address] 11/18/2023 20:30:25 11/18/19 24 11/18/2023 TROPO LUCIA I troponin I < 50 NG/L < or =60 Not Available [address] [place], [address] 11/18/2023 22:25:47 11/18/19 24 11/18/2023 VENOU S BLOOD GAS pH (venous) 7.45 7.31-7 .41 high Not Available [address] [place], [address] 11/18/2023 23:12:54 11/18/19 24 11/18/2023 VENOU S BLOOD GAS pCO2 (venous) 44 mmHg 41-51 normal Not Available [facility] [address] [place], [address] 11/18/2023 23:12:54 11/18/19 24 11/18/2023 VENOU S BLOOD GAS pO2 (venous) 37 mmHg Not Available [address] [place], [address] 11/18/2023 23:12:54 11/18/19 24 11/18/2023 VENOU S BLOOD GAS TCO2 (venous) 28 mmol/ L 24-29 normal Not Available [address] [place], [address] 11/18/2023 23:12:54 11/18/19 24 11/18/2023 VENOU S BLOOD GAS HCO3 (venous) 30 mmol/ L 23-28 high Not Available [address] [place], [address] 11/18/2023 23:12:54 11/18/19 24 11/18/2023 VENOU S BLOOD GAS BE (venous) 6 mmol/ L -2-3 high Not Available [address] [place], [address] 11/18/2023 23:12:54 11/18/19 24 11/18/2023 VENOU S BLOOD GAS O2 sat (venous) 74 % Not Available [facility] [address] [place], [address] 11/18/2023 23:12:54 11/19/19 24 11/19/2023 COMPL ETE BLOOD COUNT W/DIF F WBC 7.07 10_3/ uL 4.4-10 .8 normal Not Available [address] [place], [address] 11/19/2023 07:03:22 11/19/19 24 11/19/2023 COMPL ETE BLOOD COUNT W/DIF F RBC 2.93 10_6/ uL 3.93-5 .22 low Not Available [address] [place], [address] 11/19/2023 07:03:22 11/19/19 24 11/19/2023 COMPL ETE BLOOD COUNT W/DIF F HGB 9.8 g/dL 11.2-1 5.7 low Not Available [address] [place], [address] 11/19/2023 07:03:22 11/19/19 24 11/19/2023 COMPL ETE BLOOD COUNT W/DIF F HCT 30.5 % 36.0-4 6.0 low Not Available [address] [place], [address] 11/19/2023 07:03:22 11/19/19 24 11/19/2023 COMPL ETE BLOOD COUNT W/DIF F MCV 104 fL 80-95 high Not Available [address] [place], [address] 11/19/2023 07:03:22 11/19/19 24 11/19/2023 COMPL ETE BLOOD COUNT W/DIF F MCH 33.4 pg 27.0-3 3.0 high Not Available [address] [place], [address] 11/19/2023 07:03:22 11/19/19 24 11/19/2023 COMPL ETE BLOOD COUNT W/DIF F MCHC 32.1 % 32.0-3 6.0 normal Not Available [address] [place], [address] 11/19/2023 07:03:22 11/19/19 24 11/19/2023 COMPL ETE BLOOD COUNT W/DIF F RDW 14.4 % 11.7-1 4.6 normal Not Available [address] [place], [address] 11/19/2023 07:03:22 11/19/19 24 11/19/2023 COMPL ETE BLOOD COUNT W/DIF F platelet count 112 10_3/ uL 130-40 0 low Not Available [address] [place], [address] 11/19/2023 07:03:22 11/19/19 24 11/19/2023 COMPL ETE BLOOD COUNT W/DIF F MPV 10.8 fL 8.0-11 .0 normal Not Available [address] [place], [address] 11/19/2023 07:03:22 11/19/19 24 11/19/2023 COMPL ETE BLOOD COUNT W/DIF F neutrophils % 74.3 % Not Available [address] [place], [address] 11/19/2023 07:03:22 11/19/19 24 11/19/2023 COMPL ETE BLOOD COUNT W/DIF F lymphocytes % 14.1 % Not Available [address] [place], [address] 11/19/2023 07:03:22 11/19/19 24 11/19/2023 COMPL ETE BLOOD COUNT W/DIF F monocytes % 6.5 % Not Available [address] [place], [address] 11/19/2023 07:03:22 11/19/19 24 11/19/2023 COMPL ETE BLOOD COUNT W/DIF F eosinophils % 4.4 % Not Available [address] [place], [address] 11/19/2023 07:03:22 11/19/19 24 11/19/2023 COMPL ETE BLOOD COUNT W/DIF F basophils % 0.4 % Not Available [address] [place], [address] 11/19/2023 07:03:22 11/19/19 24 11/19/2023 COMPL ETE BLOOD COUNT W/DIF F immature grans % 0.3 % Not Available [address] [place], [address] 11/19/2023 07:03:22 11/19/19 24 11/19/2023 COMPL ETE BLOOD COUNT W/DIF F nucleated RBC 0.0 % 0.0-0. 3 normal Not Available [address] [place], [address] 11/19/2023 07:03:22 11/19/19 24 11/19/2023 COMPL ETE BLOOD COUNT W/DIF F absolute neutrophil count 5.25 10_3/ uL 1.2-6. 7 normal Not Available [address], [address] 11/19/2023 07:03:22 11/19/19 24 11/19/2023 COMPL ETE BLOOD COUNT W/DIF F absolute lymphocyte count 1.00 10_3/ uL 1.2-3. 4 low Not Available [address] [place], [address] 11/19/2023 07:03:22 11/19/19 24 11/19/2023 COMPL ETE BLOOD COUNT W/DIF F absolute monocyte count 0.46 10_3/ uL 0.1-0. 8 normal Not Available [address], [address] 11/19/2023 07:03:22 11/19/19 24 11/19/2023 COMPL ETE BLOOD COUNT W/DIF F absolute eosinophil count 0.31 10_3/ uL 0.0-0. 7 normal Not Available [address], [address] 11/19/2023 07:03:22 11/19/19 24 11/19/2023 COMPL ETE BLOOD COUNT W/DIF F absolute basophil count 0.03 10_3/ uL 0.0-0. 2 normal Not Available [address], [address] 11/19/2023 07:03:22 11/19/19 24 11/19/2023 IRON AND IBCT iron 45 ug/dL 50-170 low Not Available [address] [place], [address] 11/19/2023 07:24:25 11/19/19 24 11/19/2023 IRON AND IBCT total iron binding capacity 284 ug/dL 250-45 0 normal Not Available [address], [address] 11/19/2023 07:24:25 11/19/19 24 11/19/2023 IRON AND IBCT transferrin sat 16 % 15-50 normal Not Available Ariela avitia [address] [place], [address] 11/19/2023 07:24:25 11/19/19 24 11/19/2023 BASIC METAB OLIC PANEL calcium 8.5 mg/dL 8.5-10 .1 normal Not Available [address] [place], [address] 11/19/2023 07:49:36 11/19/19 24 11/19/2023 BASIC METAB OLIC PANEL glucose 93 mg/dL 74-106 normal Not Available Ethel green [address] [place], [address] 11/19/2023 07:49:36 11/19/19 24 11/19/2023 BASIC METAB OLIC PANEL BUN 12 mg/dL 7-18 normal Not Available Ethel green [address] [place], [address] 11/19/2023 07:49:36 11/19/19 24 11/19/2023 BASIC METAB OLIC PANEL creatinine 0.8 mg/dL 0.55-1 .02 normal Not Available [address] [place], [address] 11/19/2023 07:49:36 11/19/19 24 11/19/2023 BASIC METAB [...] young er-ag ed adult s. Not Available [address] [place], [address] 11/19/2023 07:49:36 11/19/19 24 11/19/2023 BASIC METAB OLIC PANEL sodium 147 mmol/ L 136-14 5 high Not Available [address] [place], [address] 11/19/2023 07:49:36 11/19/19 24 11/19/2023 BASIC METAB OLIC PANEL potassium 3.2 mmol/ L 3.5-5. 1 low Not Available [address] [place], [address] 11/19/2023 07:49:36 11/19/19 24 11/19/2023 BASIC METAB OLIC PANEL chloride 107 mmol/ L 98-107 normal Not Available [address] [place], [address] 11/19/2023 07:49:36 11/19/19 24 11/19/2023 BASIC METAB OLIC PANEL CO2 31.2 mmol/ L 21.0-3 2.0 normal Not Available [address] [place], [address] 11/19/2023 07:49:36 11/19/19 24 11/19/2023 BASIC METAB OLIC PANEL anion gap 8.8 mmol/ L 3-11 normal Not Available [address] [place], [address] 11/19/2023 07:49:36 11/19/19 24 11/19/2023 DANIEL TIN ferritin 169 NG/mL 8-252 normal Not Available [address] [place], [address] 11/19/2023 07:49:36 11/19/19 24 11/19/2023 MAGNE SIUM magnesium 1.8 mg/dL 1.8-2. 4 normal Not Available [address] [place], [address] 11/19/2023 07:49:37 11/19/19 24 11/19/2023 VITAM IN B12 vitamin B12 1124 pg/mL 193-98 6 high Not Available [address] [place], [address] 11/19/2023 07:49:37 11/19/19 24 11/19/2023 FOLAT E folate 19.3 NG/mL 8.6-20 .0 normal Not Available [address] [place], [address] 11/19/2023 07:49:37 11/19/19 24 11/20/2023 TRANS DANIEL N transferrin 188 mg/dL 201-35 2 abnormal Test perfo rmed or refer red by [facility] [address], [place] [address] Not Available [address] [place], [address] 11/23/2023 12:15:30 11/20/19 24 11/20/2023 BASIC METAB OLIC PANEL calcium 8.9 mg/dL 8.5-10 .1 normal Not Available [address] [place], [address] 11/20/2023 07:12:43 11/20/19 24 11/20/2023 BASIC METAB OLIC PANEL glucose 115 mg/dL 74-106 high Not Available Ethel green [address] [facility] [place], [address] 11/20/2023 07:12:43 11/20/19 24 11/20/2023 BASIC METAB OLIC PANEL BUN 19 mg/dL 7-18 high Not Available Ethel green [address] [place], [address] 11/20/2023 07:12:43 11/20/19 24 11/20/2023 BASIC METAB OLIC PANEL creatinine 1.0 mg/dL 0.55-1 .02 normal Not Available [address] [facility] [place], [address] 11/20/2023 07:12:43 11/20/19 24 11/20/2023 BASIC METAB [...] young er-ag ed adult s. Not Available [address] [place], [address] 11/20/2023 07:12:43 11/20/19 24 11/20/2023 BASIC METAB OLIC PANEL sodium 140 mmol/ L 136-14 5 normal Not Available [address], [address] 11/20/2023 07:12:43 11/20/19 24 11/20/2023 BASIC METAB OLIC PANEL potassium 3.6 mmol/ L 3.5-5. 1 normal Not Available [address] [place], [address] 11/20/2023 07:12:43 11/20/19 24 11/20/2023 BASIC METAB OLIC PANEL chloride 100 mmol/ L 98-107 normal Not Available [address] [place], [address] 11/20/2023 07:12:43 11/20/19 24 11/20/2023 BASIC METAB OLIC PANEL CO2 33.2 mmol/ L 21.0-3 2.0 high Not Available [address] [place], [address] 11/20/2023 07:12:43 11/20/19 24 11/20/2023 BASIC METAB OLIC PANEL anion gap 6.8 mmol/ L 3-11 normal Not Available [address], [address] 11/20/2023 07:12:43 12/02/19 24 12/02/2023 BASIC METAB OLIC PANEL calcium 9.8 mg/dL 8.5-10 .1 normal Not Available [address] [place], [address] 12/02/2023 16:25:21 12/02/19 24 12/02/2023 BASIC METAB OLIC PANEL glucose 104 mg/dL 74-106 normal Not Available Ethel green [address] [place], [address] 12/02/2023 16:25:21 12/02/19 24 12/02/2023 BASIC METAB OLIC PANEL BUN 20 mg/dL 7-18 high Not Available Ethel green [address] [place], [address] 12/02/2023 16:25:21 12/02/19 24 12/02/2023 BASIC METAB OLIC PANEL creatinine 1.1 mg/dL 0.55-1 .02 high Not Available [address], [address] 12/02/2023 16:25:21 12/02/19 24 12/02/2023 BASIC METAB [...] young er-ag ed adult s. Not Available [address] [place], [address] 12/02/2023 16:25:21 12/02/19 24 12/02/2023 BASIC METAB OLIC PANEL sodium 143 mmol/ L 136-14 5 normal Not Available [address] [place], [address] 12/02/2023 16:25:21 12/02/19 24 12/02/2023 BASIC METAB OLIC PANEL potassium 4.6 mmol/ L 3.5-5. 1 normal Not Available [address], [address] 12/02/2023 16:25:21 12/02/19 24 12/02/2023 BASIC METAB OLIC PANEL chloride 106 mmol/ L 98-107 normal Not Available [address], [address] 12/02/2023 16:25:21 12/02/19 24 12/02/2023 BASIC METAB OLIC PANEL CO2 29.1 mmol/ L 21.0-3 2.0 normal Not Available [address], [address] 12/02/2023 16:25:21 12/02/19 24 12/02/2023 BASIC METAB OLIC PANEL anion gap 7.9 mmol/ L 3-11 normal Not Available [address], [address] 12/02/2023 16:25:21 12/02/19 24 12/02/2023 MAGNE SIUM magnesium 1.8 mg/dL 1.8-2. 4 normal Not Available [address] [place], [address] 12/02/2023 16:25:22 12/02/19 24 12/02/2023 NT-RI OBNP nt-probnp 2190 pg/mL <300 high NT-pr [...] false negat nadeem resul ts. Not Available [facility] (Registration ) [address] [place] [address] [place], [address], 12/02/2023 16:25:22 12/02/19 24 12/02/2023 COMPL ETE BLOOD COUNT NO DIFF WBC 7.43 10_3/ uL 4.4-10 .8 normal Not Available [address], [address] 12/02/2023 16:35:23 12/02/19 24 12/02/2023 COMPL ETE BLOOD COUNT NO DIFF RBC 3.18 10_6/ uL 3.93-5 .22 low Not Available [address], [address] 12/02/2023 16:35:23 12/02/19 24 12/02/2023 COMPL ETE BLOOD COUNT NO DIFF HGB 10.6 g/dL 11.2-1 5.7 low Not Available [address] [place], [address] 12/02/2023 16:35:23 12/02/19 24 12/02/2023 COMPL ETE BLOOD COUNT NO DIFF HCT 33.5 % 36.0-4 6.0 low Not Available [address] [place], [address] 12/02/2023 16:35:23 12/02/19 24 12/02/2023 COMPL ETE BLOOD COUNT NO DIFF MCV 105 fL 80-95 high 1+ macro cytos is Not Available [address], [address] 12/02/2023 16:35:23 12/02/19 24 12/02/2023 COMPL ETE BLOOD COUNT NO DIFF MCH 33.3 pg 27.0-3 3.0 high Not Available [address], [address] 12/02/2023 16:35:23 12/02/19 24 12/02/2023 COMPL ETE BLOOD COUNT NO DIFF MCHC 31.6 % 32.0-3 6.0 low Not Available [address], [address] 12/02/2023 16:35:23 12/02/19 24 12/02/2023 COMPL ETE BLOOD COUNT NO DIFF RDW 13.3 % 11.7-1 4.6 normal Not Available [address], [address] 12/02/2023 16:35:23 12/02/19 24 12/02/2023 COMPL ETE BLOOD COUNT NO DIFF platelet count 140 10_3/ uL 130-40 0 normal Not Available [address], [address] 12/02/2023 16:35:23 12/02/19 24 12/02/2023 COMPL ETE BLOOD COUNT NO DIFF MPV 11.8 fL 8.0-11 .0 high Not Available [address], [address] 12/02/2023 16:35:23 04/18/20 24 04/18/2024 COMPL ETE BLOOD COUNT NO DIFF WBC 6.58 10_3/ uL 4.4-10 .8 normal Not Available [address], [address] 04/18/2024 15:08:25 04/18/20 24 04/18/2024 COMPL ETE BLOOD COUNT NO DIFF RBC 3.70 10_6/ uL 3.93-5 .22 low Not Available [address] [place], [address] 04/18/2024 15:08:25 04/18/20 24 04/18/2024 COMPL ETE BLOOD COUNT NO DIFF HGB 12.0 g/dL 11.2-1 5.7 normal Not Available [address] [place], [address] 04/18/2024 15:08:25 04/18/20 24 04/18/2024 COMPL ETE BLOOD COUNT NO DIFF HCT 38.0 % 36.0-4 6.0 normal Not Available [address] [place], [address] 04/18/2024 15:08:25 04/18/20 24 04/18/2024 COMPL ETE BLOOD COUNT NO DIFF MCV 103 fL 80-95 high Not Available [address] [place], [address] 04/18/2024 15:08:25 04/18/20 24 04/18/2024 COMPL ETE BLOOD COUNT NO DIFF MCH 32.4 pg 27.0-3 3.0 normal Not Available [address], [address] 04/18/2024 15:08:25 04/18/20 24 04/18/2024 COMPL ETE BLOOD COUNT NO DIFF MCHC 31.6 % 32.0-3 6.0 low Not Available [address], [address] 04/18/2024 15:08:25 04/18/20 24 04/18/2024 COMPL ETE BLOOD COUNT NO DIFF RDW 15.6 % 11.7-1 4.6 high Not Available [address], [address] 04/18/2024 15:08:25 04/18/20 24 04/18/2024 COMPL ETE BLOOD COUNT NO DIFF platelet count 124 10_3/ uL 130-40 0 low Not Available [address], [address] 04/18/2024 15:08:25 04/18/20 24 04/18/2024 COMPL ETE BLOOD COUNT NO DIFF MPV 11.2 fL 8.0-11 .0 high Not Available [address], [address] 04/18/2024 15:08:25 04/18/20 24 04/18/2024 IRON AND IBCT iron 65 ug/dL 50-170 normal Not Available [facility] (Registration ) [address] [place] [address] [place], [address], 04/18/2024 16:07:17 04/18/20 24 04/18/2024 IRON AND IBCT total iron binding capacity 318 ug/dL 250-45 0 normal Not Available [facility] (Registration ) [address] [place] [address] [place], [address], 04/18/2024 16:07:17 04/18/20 24 04/18/2024 IRON AND IBCT transferrin sat 20 % 15-50 normal Not Available [facility] (Registration ) [address] [place] [address] [place], [address], 04/18/2024 16:07:17 04/18/20 24 04/18/2024 BASIC METAB OLIC PANEL calcium 9.4 mg/dL 8.5-10 .1 normal Not Available [facility] (Registration ) [address] [place] [address] [place], [address], 04/18/2024 16:09:17 04/18/20 24 04/18/2024 BASIC METAB OLIC PANEL glucose 103 mg/dL 74-106 normal Not Available [facility] (Registration ) [address] [place] [address] [place], [address], 04/18/2024 16:09:17 04/18/20 24 04/18/2024 BASIC METAB OLIC PANEL BUN 21 mg/dL 7-18 high Not Available [facility] (Registration ) [address] [place] [address] [place], [address], 04/18/2024 16:09:17 04/18/20 24 04/18/2024 BASIC METAB OLIC PANEL creatinine 1.0 mg/dL 0.55-1 .02 normal Not Available [facility] (Registration ) [address] [place] [address] Dr [facility] [place], [address], 04/18/2024 16:09:17 04/18/20 24 04/18/2024 BASIC METAB [...] young er-ag ed adult s. Not Available [facility] (Registration ) [address] [place] [address] [place], [address], 04/18/2024 16:09:17 04/18/20 24 04/18/2024 BASIC METAB OLIC PANEL sodium 145 mmol/ L 136-14 5 normal Not Available [facility] (Registration ) [address] [place] [address] [place], [address], 04/18/2024 16:09:17 04/18/20 24 04/18/2024 BASIC METAB OLIC PANEL potassium 4.2 mmol/ L 3.5-5. 1 normal Not Available [facility] (Registration ) [address] [place] [address] [place], [address], 04/18/2024 16:09:17 04/18/20 24 04/18/2024 BASIC METAB OLIC PANEL chloride 107 mmol/ L 98-107 normal Not Available [facility] (Registration ) [address] [place] [address] [place], [address], 04/18/2024 16:09:17 04/18/20 24 04/18/2024 BASIC METAB OLIC PANEL CO2 31.4 mmol/ L 21.0-3 2.0 normal Not Available [facility] (Registration ) [address] [place] [address] [place], [address], 04/18/2024 16:09:17 04/18/20 24 04/18/2024 BASIC METAB OLIC PANEL anion gap 6.6 mmol/ L 3-11 normal Not Available [facility] (Registration ) [address] [place] [address] [place], [address], 04/18/2024 16:09:17 04/18/20 24 04/18/2024 DANIEL TIN ferritin 211 NG/mL 8-252 normal Not Available [facility] (Registration ) [address] [place] [address] [place], [address], 04/18/2024 16:09:18 04/18/20 24 04/18/2024 TSH (W/RE F FT4) TSH (w/ref FT4) 2.17 uIU/m L 0.36-3 .74 normal NOTE: Supra -phys iolog ic doses of Bioti n(B7) may cause false negat nadeem resul ts. Not Available [facility] (Registration ) [address] [place] [address] Dr, [place], [address], 04/18/2024 16:09:18 04/18/20 24 04/18/2024 VITAM IN D 25 TOTAL vitamin D 25 total 63.9 NG/mL 30-100 normal Refer ence Guide lines : Defic ient: <10 ng/ml Insuf ficie nt: 10-30 ng/ml Suffi cient : 30-10 0 ng/ml Toxic : >100 ng/ml Not Available [address] [facility] [place], [address] 04/18/2024 16:09:19 04/18/20 24 04/18/2024 HEMOG LOBIN A1C hemoglobin A1C 5.4 % <5.7 Refer ence Range s <5.7 Lisa l 5.7-6 .4% Predi abete s 6.5% or great er Diagn ostic for diabe jasson (if confi rmed) Refer ences : 1. Ameri can Diabe jasson Assoc iatio n. Clas sific ation and Diagn osis of Diabe jasson. Diabe jasson Care 2018; 2(Sup pleme nt 1):S1 3-s28 . Not Available [facility] (Registration ) [address] [place] [address] [place], [address], 04/18/2024 16:21:24 11/04/19 24 10/14/2023 rhyth m strip , EKG* No observ ation record ed. [email or web address] Not Available 2023 10:18:08 11/18/19 24 11/18/2023 US, duple x, lower extre mity Paticherie t Name: Rema Olson Unit #: [id number] Loc: ER Orderi ng Provid er: Braydon Doyle Accoun t #: [id number] Status : REG ER Primar y Care [...] tation , and color Dopple r. The small business consultant ior tibial veins are patent . IMPRES [...] at the addres s above. Thank- you. [facility] [address], [place], [address] 11/18/2023 16:48:49 11/18/19 24 11/18/2023 CT imagi martin hackett Name: Rema Olson Unit #: [id number] Loc: ER Sonal salazar Provid er: Braydon Doyle Accoun t #: [id number] Status : REG ER Primar y Care [...] interl obular septal thicke jama greate r small business consultant iorly which could indica te mild CHF. No consol idatio n or domina nt measur able mass. Pleura : Small left pleura l effusi on. Heart: The heart is modera tely dilate d. Holistic Health Practitioner ior perica rdial effusi on. Minima l [...] . Small perica rdial effusi on seen small business consultant iorly. Small left pleura l effusi on. [...] at the addres s above. Thank- you. [facility] [address] [place], [address] 11/19/2023 12:12:11 11/19/1911/19/2023 ultra sound imagi ng repor t Patien t Name: Rema Olson Unit #: [id number] Loc: MS Pruitt ng Provid er: Huseyin Bolaños M.D. Accsantos t #: [id number] Status : ADM IN Primar y Care Provid er: Erich Her M.D. Date of Exam: Sex: F Admiss ion Date: : 1945 Age: 78 ------ ------ --- APPROV ED REPORT ------ ------ -- EXAM: Compre hensiv e 2D, Dopple r, and color- flow Echoca rdiogr am Patien t Locati on: In-Pat ient Room/B ed: 212 [...] error, please notify us immyang cuellar at and return the origin al report to us at the addres s above. Thank- you. [facility] [address], [place], [address] 11/19/2023 12:12:11 01/18/20 24 11/15/2018 imagi ng/di [...] started at time of humeral fracture 2023- ERICH HER MD [address], [place], [address] , [facility] 4 17:34:10 Hypothyr oidism 11282304 Active 1959 EVIE shaw [facility] 4 10:29:59 Essentia l hyperten jason 26725486 Active 1959 EVIE shaw [facility] 4 10:29:36 Hyperlip idemia 14324746 Active 1959 on statin MD [address], [place], [address] , [facility] 4 20:35:18 Spinal stenosis of lumbar region 66048674 Active 2012 s/p lumbar for[place] L4 MD [address], [place] [address] , [facility] 4 20:36:41 Sleep apnea 41392904 Active 2012 on CPAP MD [address], [place] [address] , [facility] 4 20:39:31 Gastroes ophageal reflux disease without esophagi tis 626126472 Completed 195908/12/2023 Removal Reason: resolved with surgical repair of HH MD [address], [facility] [address] , [facility] 4 10:41:24 Family history of malignan t neoplasm of digestiv e organ 643859247 Active [address], [place], [address] , [facility] 4 20:37:03 Paresthe samir 78748322 Completed 201412/01/2014 11/28/19 15 - Comments only - Erich Her MD - check B12 and folate Problem Code: R20.2; Problem Code Type: ICD-10; Not Available [facility] 3 05:53:48 Adult health examinat ion Active [address], [place], [address] , [facility] 4 20:33:34 Pre-surg ruben evaluati on Completed [...] Code Type: ICD-10; Not Available [facility] 3 05:53:48 Localize d edema 985328088 Completed 201501/29/2016 12/13/19 16 - Comments only - Erich Her MD - and some on left as well, will check BMP. 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 Fitzpatr ick for removal. Problem Code: L72.3; Problem Code Type: ICD-10; Not Available [facility] 3 05:53:49 Chronic ulcer of foot 406439790 Completed 201601/16/2017 12/18/19 17 - Comments only - Erich Her MD - Due to injury. This does appear to have some granulat ion tissue and to be healing. She is given a prescrip tion for Keflex to take only if erythema seems to be extendin g. Problem Code: L97.509; Problem Code Type: ICD-10; Not Available [facility] 3 05:53:49 Diarrhea 06989876 Completed 201602/10/2017 02/05/20 17 - Comments only - Erich Her MD - Persiste nt over several months, we will collect stool for C. difficil e, Giardia, culture, and lactofer rin Problem Code: R19.7; Problem Code Type: ICD-10; ERICH EHR MD [address], [place], [address] , [facility]. 4 21:03:03 Polyp of cervix 94178314 Active 2016 EVIE shaw, [facility]. 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 6 mm PT1NO E2P2 poistive , HER2 negative MD [address], [place], [address] , [facility]. 4 20:38:49 Pain in left lower limb 981625930 Active 2016 EVIE shaw [facility], [facility]. 4 10:32:00 Pain in thoracic spine 992366838 Active 2016 EVIE shaw [facility], [facility]. 4 10:32:06 Spasm 07230472 Active 2017 EVIE shaw [facility] 4 10:33:28 Abdomina l distensi on, gaseous 362163814 Completed 201703/08/2018 Problem Code: R14.0; Problem Code Type: ICD-10; Not Available [facility] 3 05:53:50 Cellulit is of toe 63517365 Completed 201808/12/2018 Problem Code: L03.039; Problem Code Type: ICD-10; Not Available [facility] 3 05:53:51 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 2018 Danica Felix colin, [facility] 4 14:36:02 Tachycar lea 3121971 Completed 201811/25/2018 Problem Code: R00.0; Problem Code Type: ICD-10; Not Available [facility] 3 05:53:51 Pre-surg ruben evaluati on Completed 201811/25/2018 Problem Code: Z01.818; Problem Code Type: ICD-10; Not Available [facility] 3 05:53:51 Iron deficien cy anemia 73687392 Active 2019 elevated MCV: normal B12 2021, normal folate 2018 IV iron 2023 EGD 01/2022 paraesop hageal hernia (since repaired ) colo 03/2017 normal ERICH HER MD [facility] [address], [place], [address] , [facility] 4 11:44:45 Lumbago with sciatica 553014594 Completed 201903/16/2020 02/24/20 20 - Comments only - Vy Pinon [employer] - Likely aggravat ed by increase d [...] when travelin g in airport with assistan master by airline staff); also recommen ded use [...] M54.40; Problem Code Type: ICD-10; Not Available [facility] 3 05:53:52 Right side sciatica [id number] 9101 [facility] 4 10:33:09 Left side sciatica [id number] 9104 Active [address], [facility] [address] , [facility] 4 17:20:20 Diaphrag matic hernia 88192343 Completed 202108/11/2023 Removal Reason: s/p repair MD [address], [place] [id number] , [facility] 4 20:50:39 History of SARS-CoV -2 [id number] 8675020 Completed 202104/04/2022 03/21/20 22 - Comments only - Erich Her MD - testing is negative today in the office. Still some fatigue but otherwis e recoveri ng. Did get MAB. Already had covid bivalent booster prior to illness Problem Code: Z86.16; Problem Code Type: ICD-10; Not Available [facility] 3 05:53:53 Diarrhea 83608819 Completed 202104/18/2022 Problem Code: R19.7; Problem Code Type: ICD-10; MD [address], [facility] [address] , [facility] 4 21:03:02 Screenin g mammogra phy Completed 202208/11/[address], [place], [address] , [facility] 4 20:36:56 Carpal tunnel syndrome of left wrist 00609296886 9102 Completed 202201/23/2023 Problem Code: G56.02; Problem Code Type: ICD-10; Not Available [facility] 4 05:37:46 Diarrhea 32223006 Active 2022 started colestip ol 01/[address], [place], [address] , [facility] 4 21:03:02 Carpal tunnel syndrome of right wrist 46983708843 9108 Completed 201803/19/2020 Problem Code: G56.01; Problem Code Type: ICD-10; Not Available [facility] 3 05:53:55 Pain of left knee joint 76849214714 4107 Completed 202107/30/2022 Problem Code: M25.562; Problem Code Type: ICD-10; Not Available [facility] 3 05:53:55 Hypersom korina 74510242 Completed 201311/27/2014 Problem Code: 780.54; Problem Code Type: ICD-9; Not Available [facility] 3 05:53:56 Screenin g for disorder Completed 201909/11/2021 Problem Code: Z13.9; Problem Code Type: ICD-10; Not Available [facility] 3 05:53:56 Anemia 170962719 Completed 201903/19/2020 Problem Code: D64.9; Problem Code Type: ICD-10; Not Available [facility] 3 05:53:56 Long-ter m current use of anticoag ulant 897285761 Completed 201709/01/2018 Problem Code: Z79.01; Problem Code Type: ICD-10; Not Available [facility] 3 05:53:57 Chronic rhinitis 38659186 Completed 202108/12/2021 Problem Code: J31.0; Problem Code Type: ICD-10; Not Available [facility] 05:53:57 Impaired fasting glycemia 127051464 Completed 201401/28/2023 Not Available [facility] 3 05:53:57 Fatigue 34014583 Completed 201903/19/2020 Problem Code: R53.83; Problem Code Type: ICD-10; Not Available [facility] 05:53:58 Upper respirat ory tract infectio n caused by Influenz a A 42086737673 9104 Completed 201707/02/2017 Problem Code: J09.x2; Problem Code Type: ICD-10; Not Available [facility] 05:53:59 Diarrhea 82017261 Completed 201709/01/2018 ERICH HER MD [facility] [address], [place], [address] [facility] 21:03:02 Acute upper respirat ory infectio n 80403635 Completed 202108/26/2021 Problem Code: J06.9; Problem Code Type: ICD-10; Not Available [facility] 05:53:59 Pain in right foot 73884596924 9107 Completed 202207/30/2022 Problem Code: M79.671; Problem Code Type: ICD-10; Not Available [facility] 3 05:54:00 Breast composit ion 337667402 Completed 201601/28/2023 Not Available [facility] 3 05:54:00 Changes in skin texture 437855169 Completed 202207/30/2022 Problem Code: R23.4; Problem Code Type: ICD-10; Not Available [facility] 3 05:54:01 Spasm 39098324 Completed 201603/23/2017 Problem Code: R25.2; Problem Code Type: ICD-10; EVIE RUFUS [facility] 4 10:33:28 Hyperten sive disorder 13805445 Completed 11/28/19 15 - Comments only - Erich Her MD - [facility] ed, no change in medicati ons Not Available [facility] 3 05:54:03 Arthralg ia of the ankle and/or foot 732088517 Completed 201501/30/2016 Problem Code: M25.571; Problem Code Type: ICD-10; Not Available [facility] 3 05:54:03 Dyspnea 220057626 Completed 201903/19/2020 Problem Code: R06.02; Problem Code Type: ICD-10; Danica Felix [facility] 4 14:39:47 Trigger finger of right hand 49969888580 216017 Completed 201803/19/2020 Problem Code: M65.341; Problem Code Type: ICD-10; Not Available [facility] 3 05:54:06 Cough 16953290 Completed 202108/12/2021 Problem Code: R05.1; Problem Code Type: ICD-10; Not Available [facility] 3 05:54:06 At risk - finding 279602763 Completed 201811/11/2018 Problem Code: Z91.89; Problem Code Type: ICD-10; Not Available [facility] 3 05:54:06 Cough 18696543 Completed 201706/15/2017 Problem Code: R05; Problem Code Type: ICD-10; Not Available [facility] 3 05:54:07 Preopera tive cardiova scular examinat ion Completed 202112/18/2021 Problem Code: Z01.810; Problem Code Type: ICD-10; Not Available [facility] 3 05:54:08 Arterial bruit 59865367 Completed 202109/11/2021 Not Available [facility] 3 05:54:08 Gastroes ophageal reflux disease 044077493 Completed Not Available [facility] 3 05:54:09 Imaging of musculos keletal system abnormal 589554551 Completed 201603/23/2017 Problem Code: R93.7; Problem Code Type: ICD-10; Not Available [facility] 3 05:54:10 Blood glucose outside referenc e range 618723044 Completed 201503/20/2016 Problem Code: R73.09; Problem Code Type: ICD-10; Not Available [facility] 3 05:54:10 Abdomina l aortic aneurysm 144745853 Completed 195912/04/2014 Not Available [facility] 3 05:54:11 Lung field abnormal 810187795 Completed 202109/11/2021 Problem Code: R91.8; Problem Code Type: ICD-10; Not Available [facility] 3 05:54:11 Ingrowin g nail 152640618 Completed 201503/23/2017 Problem Code: L60.0; Problem Code Type: ICD-10; Not Available [facility] 3 05:54:11 Hypokale karyn 12081569 Completed 201504/17/2016 Problem Code: E87.6; Problem Code Type: ICD-10; Not Available [facility] 3 05:54:12 Spasm 55097894 Completed 202201/23/2023 Problem Code: M62.838; Problem Code Type: ICD-10; EVIE shaw, [facility] 4 10:33:28 Aneurysm of ascendin g aorta 095441048 Active 2023 ERICH HER MD [address], [place], [address] , [facility]. 4 19:24:51 Bicuspid aortic valve 97810097 Active 2023 severe by ECHO 07/2023 ERICH HER MD [address], [place], [address] , [facility]. 4 19:33:10 Osteopen ia 445725687 Active 2023 EVIE shaw, [facility] 4 10:28:13 Venous stasis 04334830 Active 2023 EVIE shaw, [facility] 4 10:29:14 Chronic kidney disease 684842969 Active 2017 Stage 3bA1v eGFR 42-[address], [place] [address] , [facility] 4 20:49:29 Dyspnea on exertion 68767044 Active 2018 Dnaica Felix colin, [facility] 4 14:39:44 Hiatal hernia 69070705 Completed 202108/11/2023 lap repair MD [address], [place] [address] , [facility] 4 20:51:15 Edema of lower extremit y 246458644 Active [address], [place] [address] , [facility] 4 20:55:49 Atrial fibrilla tion 14861592 Active 2016 s/p pulmonoa ry vein isolatio n 05/2018, chronic anticoag ulation with Xarelto MD [address], [facility] [address] , [facility] 4 09:14:08 Obesity 497018294 Active [address], [place] [address] , [facility] 4 09:26:22 Cardiac pacemake r in situ 002879825 Active 2023 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 MD [address], [place], [address] , [facility] 09:13:49 Swelling of bilatera l lower limbs 539780025 Active [address], [place], [address] , [facility] 14:35:13 Problem Notes None recorded. Procedures Surgical History Date Name Laterality Status Provider Name and Address Organization Details Recorded Time 10/26/19 cardiac pacemaker procedure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
--- OUTSIDE RECORDS SUMMARY | 2024-05-25 10:50 | XMS_ITS | Continuity of Care Document ---
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 Plan of Treatment Reminders Order Date Submit Date Provider Last Modified By Organization Details Last Modified Time Details Appointments None recorded. Lab BMP, serum or plasma 2023 024 [facility] (Registration ), [address] [place] [address] [place], [address], 4 11:42:49 vitamin D, 25-hydroxy , total, serum 2023 024 [facility] (Registration ), [address] [place] [address] [place], [address], 4 16:09:19 HbA1c (hemoglobi n A1c), blood 2023 024 [facility] (Registration ), [address] [place] [address] [place], [address], 4 11:39:49 TSH, serum, reflex free T4 2023 024 [facility] (Registration ), [address] [place] [address] [place], [address], 4 11:40:25 CBC 2023 024 [facility] (Registration ), [address] [place] [address] [place] [facility] [place], [address], 4 15:08:25 ferritin, serum or plasma 2023 024 [facility] (Registration ), [address] [place] [address] [place], [address], 4 11:41:22 iron + total iron-lynn ng capacity (TIBC), serum 2023 024 [facility] (Registration ), [address] [place] [address] [place], [address], 4 11:43:17 Referral None recorded. Procedures None recorded. [...] humeral fracture 2023- MD [address], [place], [address] , [facility] 4 17:34:10 Hypothyr oidism 11669774 Active 1959 EVIE shaw, [facility] 4 10:29:59 Essentia l hyperten jason 16022950 Active 1959 EVIE shaw, [facility] 4 10:29:36 Hyperlip idemia 06525315 Active 1959 on statin MD [address], [place], [address] , [facility] 4 20:35:18 Spinal stenosis of lumbar region 56284102 Active 2012 s/p lumbar foramino parsih L4 MD [address], [place], [address] , [facility] 4 20:36:41 Sleep apnea 81287866 Active 2012 on CPAP MD [address], [place], [address] , [facility] 4 20:39:31 Gastroes ophageal reflux disease without esophagi tis 980826335 Completed 195908/12/2023 Removal Reason: resolved with surgical repair of HH MD [address], [facility] [address] , [facility] 4 10:41:24 Family history of malignan t neoplasm of digestiv e organ 725116775 Active [address], [place], [address] , [facility] 4 20:37:03 Paresthe samir 96402194 Completed 201412/01/2014 11/28/19 15 - Comments only - Ana Wade MD - check B12 and folate Problem Code: R20.2; Problem Code Type: ICD-10; Not Available [facility] 3 05:53:48 Adult health examinat ion Active [address], [place], [address] , [facility] 4 20:33:34 Pre-surg ruben evaluati on Completed [...] Z01.818; Problem Code Type: ICD-10; Not Available [facility] 3 05:53:48 Localize d edema 603085327 Completed 201501/29/2016 12/13/19 16 - Comments only - Ana Wade MD - and some on left as well, will check BMP. 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 Nusrat esparza for removal. Problem Code: L72.3; Problem Code Type: ICD-10; Not Available [facility] 3 05:53:49 Chronic ulcer of foot 368934312 Completed 201601/16/2017 12/18/19 17 - Comments only - Ana Wade MD - Due to injury. This does appear to have some granulat ion tissue and to be healing. She is given a prescrip tion for Keflex to take only if erythema seems to be extendin g. Problem Code: L97.509; Problem Code Type: ICD-10; Not Available [facility] 3 05:53:49 Diarrhea 45631599 Completed 201602/10/2017 02/05/20 17 - Comments only - Ana Wade MD - Persiste nt over several months, we will collect stool for C. 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 6 mm PT1NO E2P2 poistive , HER2 negative ANA WADE MD [address], [place], [address] , [facility] 4 20:38:49 Pain in left lower limb 934750595 Active 2016 EVIE shaw [facility]. 4 10:32:00 Pain in thoracic spine 027158050 Active 2016 EVIE shaw [facility]. 4 10:32:06 Spasm 88790966 Active 2017 EV[facility] shaw [facility]. 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 2018 Danica shaw, [facility] 4 14:36:02 Tachycar lea 4699804 Completed 201811/25/2018 Problem Code: R00.0; Problem Code Type: ICD-10; Not Available [facility] 3 05:53:51 Pre-surg ruben evaluati on Completed 201811/25/2018 Problem Code: Z01.818; Problem Code Type: ICD-10; Not Available [facility] 3 05:53:51 Iron deficien cy anemia 89898404 Active 2019 elevated MCV: normal B12 2021, normal folate 2018 IV iron 2023 EGD 01/2022 paraesop hageal hernia (since repaired ) colo 03/2017 normal ANA WADE MD [address], [place], [address] , [facility] 4 11:44:45 Lumbago with sciatica 878337180 Completed 201903/16/2020 02/24/20 20 - Comments only - Vy Araujocarol 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 - Likely aggravat ed by increase d [...] Code Type: ICD-10; Not Available [facility] 3 05:53:52 Right side sciatica 13427290963 9101 Active 2019 EVIE shaw, [facility] 4 10:33:09 Left side sciatica 68511987563 9104 Active [address], [place] [address] , [facility] 4 17:20:20 Diaphrag matic hernia 44918695 Completed 202108/11/2023 Removal Reason: s/p repair MD [address], [place] [address] , [facility] 4 20:50:39 History of SARS-CoV -2 76359419905 2453692 Completed 202104/04/2022 03/21/20 22 - Comments only - Ana Wade MD - testing is negative today in the office. Still some fatigue but otherwis e recoveri ng. Did get MAB. Already had covid bivalent booster prior to illness Problem Code: Z86.16; Problem Code Type: ICD-10; Not Available [facility] 3 05:53:53 Diarrhea 29238458 Completed 202104/18/2022 Problem Code: R19.7; Problem Code Type: ICD-10; MD [address], [facility] [address] , [facility] 4 21:03:02 Radhain g mammogreduardo phy Completed 202208/11/[address], [facility] [address] , [facility] 4 20:36:56 Carpal tunnel syndrome of left wrist 53454440033 9102 Completed 202201/23/2023 Problem Code: G56.02; Problem Code Type: ICD-10; Not Available [facility] 4 05:37:46 Diarrhea 27225199 Active 2022 started colestip ol 01/[address], [place], [address] , [facility] 4 21:03:02 Carpal tunnel syndrome of right wrist 88976577812 9108 Completed 201803/19/2020 Problem Code: G56.01; Problem Code Type: ICD-10; Not Available [facility] 3 05:53:55 Pain of left knee joint 50708793087 4107 Completed 202107/30/2022 Problem Code: M25.562; Problem Code Type: ICD-10; Not Available [facility] 3 05:53:55 Hypersom korina 21963040 Completed 201311/27/2014 Problem Code: 780.54; Problem Code Type: ICD-9; Not Available [facility] 3 05:53:56 Screenin g for disorder Completed 201909/11/2021 Problem Code: Z13.9; Problem Code Type: ICD-10; Not Available [facility] 3 05:53:56 Anemia 417968446 Completed 201903/19/2020 Problem Code: D64.9; Problem Code Type: ICD-10; Not Available [facility] 3 05:53:56 Long-ter m current use of anticoag ulant 798690268 Completed 201709/01/2018 Problem Code: Z79.01; Problem Code Type: ICD-10; Not Available [facility] 3 05:53:57 Chronic rhinitis 43779747 Completed 202108/12/2021 Problem Code: J31.0; Problem Code Type: ICD-10; Not Available [facility] 3 05:53:57 Impaired fasting glycemia 956288401 Completed 201401/28/2023 Not Available [facility] 3 05:53:57 Fatigue 42175913 Completed 201903/19/2020 Problem Code: R53.83; Problem Code Type: ICD-10; Not Available [facility] 3 05:53:58 Upper respirat ory tract infectio n caused by Influenz a A 10845006820 9104 Completed 201707/02/2017 Problem Code: J09.x2; Problem Code Type: ICD-10; Not Available [facility] 3 05:53:59 Diarrhea 60607280 Completed 201709/01/2018 ANA WADE MD [address], [place], [address] [facility] 4 21:03:02 Acute upper respirat ory infectio n 07640908 Completed 202108/26/2021 Problem Code: J06.9; Problem Code Type: ICD-10; Not Available [facility] 3 05:53:59 Pain in right foot 45099870208 9107 Completed 202207/30/2022 Problem Code: M79.671; Problem Code Type: ICD-10; Not Available [facility] 3 05:54:00 Breast composit ion 543322540 Completed 201601/28/2023 Not Available [facility] 3 05:54:00 Changes in skin texture 456623372 Completed 202207/30/2022 Problem Code: R23.4; Problem Code Type: ICD-10; Not Available [facility] 3 05:54:01 Spasm 34185671 Completed 201603/23/2017 Problem Code: R25.2; Problem Code Type: ICD-10; EVIE shaw [facility] 4 10:33:28 Hyperten sive disorder 95625251 Completed 11/28/19 15 - Comments only - Ana Wade MD - [facility] ed, no change in medicati ons Not Available [facility] 3 05:54:03 Arthralg ia of the ankle and/or foot 248170768 Completed 201501/30/2016 Problem Code: M25.571; Problem Code Type: ICD-10; Not Available [facility] 3 05:54:03 Dyspnea 284813693 Completed 201903/19/2020 Problem Code: R06.02; Problem Code Type: ICD-10; [facility] 4 14:39:47 Trigger finger of right hand 61799423802 566318 Completed 201803/19/2020 Problem Code: M65.341; Problem Code Type: ICD-10; Not Available [facility] 3 05:54:06 Cough 43986281 Completed 202108/12/2021 Problem Code: R05.1; Problem Code Type: ICD-10; Not Available [facility] 3 05:54:06 At risk - finding 670748028 Completed 201811/11/2018 Problem Code: Z91.89; Problem Code Type: ICD-10; Not Available [facility] 3 05:54:06 Cough 66200728 Completed 201706/15/2017 Problem Code: R05; Problem Code Type: ICD-10; Not Available [facility] 3 05:54:07 Preopera tive cardiova scular examinat ion Completed 202112/18/2021 Problem Code: Z01.810; Problem Code Type: ICD-10; Not Available [facility] 3 05:54:08 Arterial bruit 30029522 Completed 202109/11/2021 Not Available [facility] 3 05:54:08 Gastroes ophageal reflux disease 449444706 Completed Not Available [facility] 3 05:54:09 Imaging of musculos keletal system abnormal 864077388 Completed 201603/23/2017 Problem Code: R93.7; Problem Code Type: ICD-10; Not Available [facility] 3 05:54:10 Blood glucose outside referenc e range 686646008 Completed 201503/20/2016 Problem Code: R73.09; Problem Code Type: ICD-10; Not Available [facility] 3 05:54:10 Abdomina l aortic aneurysm 378633545 Completed 195912/04/2014 Not Available [facility] 3 05:54:11 Lung field abnormal 389574091 Completed 202109/11/2021 Problem Code: R91.8; Problem Code Type: ICD-10; Not Available [facility] 3 05:54:11 Ingrowin g nail 015349715 Completed 201503/23/2017 Problem Code: L60.0; Problem Code Type: ICD-10; Not Available [facility] 3 05:54:11 Hypokale karyn 60494819 Completed 201504/17/2016 Problem Code: E87.6; Problem Code Type: ICD-10; Not Available [facility] 3 05:54:12 Spasm 73913274 Completed 202201/23/2023 Problem Code: M62.838; Problem Code Type: ICD-10; EVIE shaw, [facility]. 4 10:33:28 Aneurysm of ascendin g aorta 260578912 Active [address], [place], [address] , [facility]. 4 19:24:51 Bicuspid aortic valve 99793442 Active 2023 severe by ECHO 07/[address], [place], [address] , [facility]. 4 19:33:10 Osteopen ia 997214107 Active 2023 EVIE shaw [facility]. 4 10:28:13 Venous stasis 42327171 Active 2023 EVIE shaw [facility]. 4 10:29:14 Chronic kidney disease 646918002 Active 2017 Stage 3bA1v eGFR 42-[address], [place], [place], [address] [place] [address] , [facility] 4 20:49:29 Dyspnea on exertion 61493273 Active 2018 Danica Felix colin, [facility] 4 14:39:44 Hiatal hernia 56633257 Completed 202108/11/2023 lap repair MD [address], [place] [address] , [facility] 4 20:51:15 Edema of lower extremit y 645287537 Active [address], [place] [address] , [facility] 4 20:55:49 Atrial fibrilla tion 11476608 Active 2016 s/p pulmonoa ry vein isolatio n 05/2018, chronic anticoag ulation with Xarelto MD [address], [place], [place], [address] [place] [address] , [facility] 4 09:14:08 Obesity 928528822 Active [address], [place], [place], [address] [place] [address] , [facility] 4 09:26:22 Cardiac pacemake r in situ 451508798 Active 2023 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 MD [address], [place] [address] , [facility] 4 09:13:49 Swelling of bilatera l lower limbs 085833937 Active [address], [place] [address] , [facility] 14:35:13 Problem Notes None recorded. Procedures Surgical History Date Name Laterality Status Provider Name and Address Organization Details Recorded Time 10/26/19 cardiac pacemaker procedure completed MD [address], [place], [address], [facility] 03/16/2024 16:33:27 10/20/19 transcatheter aortic valve implantation completed MD [address], [place], [address], [facility] 03/16/2024 16:32:53 Imaging Results None recorded. Procedure Notes None recorded. Medical Equipment None Reported. Allergies Allergen ID Allergen Name Allergen Category Reaction Reaction Severity Criticality Documentation Date Start Date Code Code System Note Provider Name and Address Organization Details Recorded Time 67708 amlodipin e medicatio n swelling severe high 11/18/2023 40622 RxNorm HIRA Hodge, [facility] 13:47:28 Medications Name Sig Start Date Stop [...] 1 tab by mouth daily 06/02 completed [facility] Not Available Not Available Not [...] Smoking Status Never Smoker KRYSTAL SKELTON LPN [facility], [place] - [facility]. 08/12/2023 07:44:55 [...] And Wanted Help? (For Example, If You Turpin Very Nervous, Lonely, Or Blue; Got Sick [...] 04:00:48 Mother Family history of heart failure [email or web address] Not available 2022 04:00:48 Notes:*Problem: Mother: Dece [...] Details Recorded Time Pneumococcal conjugate PCV20, polysaccharide [id number] conjugate, adjuvant, PF 4 completed MD [address], [address] 08/12/2023 11:52:18 COVID-19, mRNA, LNP-S, PF, vanda-sucrose, 30 mcg/0.3 mL 4 completed MD [address], [facility] [address] 08/12/2023 11:52:18 COVID-19, mRNA, LNP-S, PF, vanda-sucrose, 30 mcg/0.3 mL 4 completed MD [address], [address] 03/04/2024 15:04:49 Tdap 1 completed Not Available [facility] 03/13/2023 06:18:37 Tdap 1 completed Not Available [facility] 03/13/2023 06:18:37 zoster live 5 completed Not Available [facility] 03/13/2023 06:18:37 Influenza, high-dose, trivalent, PF 8 completed Not Available [facility] 03/13/2023 06:18:38 Influenza, split virus, trivalent, preservative 6 completed Not Available [facility] 03/13/2023 06:18:38 Pneumococcal Conjugate, unspecified formulation 5 completed Not Available [facility] 03/13/2023 06:18:38 Influenza, split virus, quadrivalent, preservative 7 completed Not Available [facility] 03/13/2023 06:18:38 Influenza, high-dose, quadrivalent, PF 2 completed Not Available [facility] 03/13/2023 06:18:38 Influenza, high-dose, quadrivalent, PF 1 completed Not Available [facility] 03/13/2023 06:18:38 Influenza, high-dose, quadrivalent, PF 0 completed Not Available [facility] 03/13/2023 06:18:38 COVID-19, mRNA, LNP-S, PF, 100 mcg/0.5mL dose or 50 mcg/0.25mL dose 1 completed Not Available [facility] 03/13/2023 06:18:38 COVID-19, mRNA, LNP-S, PF, 100 mcg/0.5mL dose or 50 mcg/0.25mL dose 1 completed Not Available [facility] 03/13/2023 06:18:39 COVID-19, mRNA, LNP-S, PF, 100 mcg/0.5mL dose or 50 mcg/0.25mL dose 1 completed Not Available [facility] 03/13/2023 06:18:39 COVID-19, mRNA, LNP-S, bivalent, PF, 30 mcg/0.3 mL dose 2 completed Not Available [facility] 03/13/2023 06:18:39 pneumococcal polysaccharide PPV23 1 completed Not Available [facility] 03/13/2023 06:18:39 influenza, unspecified formulation 6 completed Not Available [facility] 03/13/2023 06:18:39 influenza, unspecified formulation 4 completed Not Available [facility] 03/13/2023 06:18:39 Influenza, high-dose, quadrivalent, PF 3 completed Not Available [facility] 05/15/2023 05:33:16 Past Encounters Encounter ID Performer Location Encounter Start Date Encounter Closed Date Diagnosis/Indication Diagnosis SNOMED-CT Code Diagnosis ICD10 Code Diagnosis Note [id number] Samantha Razo RN [address] [place] [address] 04/18/2024 10:14:04 04/18/2024 10:46:21 Osteoporotic fracture 03608475 M80.00XD Hypothyroidism 68669585 E03.9 Iron defic iency anemia 29204927 D50.9 Chronic ki dney disease 905636150 N18.9 Prediabetes 229243797 R7 3.03 Health Concerns Section Related Observation LastModified by Organization Detai ls LastModified Time None Recorded Concern Status LastModified by Organization Details LastModified Time None Recorded Payers Encounter Date Sequence Insurance Name Policy Number Policy Palacio Covered Member ID Palacio Member ID Guarantor Name 04/18/2024 1 [place] [employer] Digna Olson [id number] Digna Olson 04/18/2024 2 [place] [facility] [id number] Digna Olson [id number] Digna Olson OBGyn Episode No OBEpisode recorded.
--- OUTSIDE RECORDS SUMMARY | 2024-05-25 10:51 | XMS_ITS | Encounter Summary ---
Author Organization [facility] [place] [address] Care Team Providers Care Program Aide Group Work Name Role Phone Ana Her MD Primary Care Provider [phone] Encounter Details Date Type Department Care Team (Late st Contact Info) Description 03/10/2022 1:35 AM EST Ancillary Procedure Radiology Library at [facility] [place] [address] Ana Her MD [address] [place] [address] [facility] [address] [place], [place] [id number] Social History Tobacco Use Types Packs/Day Years [...] CT Chest (03/10/2022 1:31 AM EST) Narrative [facility] - 03/10/2022 1:31 AM EST This exam is auto-finalizing. It's purpose is for storage only. Ana Her MD IM FILM LIBRARY ORD ERABLES [place], [place] documented in this encounter Visit Diagnoses Not on filedocumented in this encounter Care Teams Program Aide Group Work Relationship Specialty Start Date End Date Ana Her MD [facility] JAY HOGAN [facility] [address] [place] [address] PCP - General 07/29/13 documented as of this encounter
--- OUTSIDE RECORDS SUMMARY | 2024-05-25 10:51 | XMS_ITS | Encounter Summary ---
[place] [address] Care Team Providers Care Steam Hoist Operator Name Role Phone Ana Her MD Primary Care Provider [phone] Reason for Visit * Auth/Cert Specialty Diagnoses / Procedures Referred By Christiano hackett Referred To Contact Diagnoses S/P repair of paraesophageal hernia Post-Op monitoring Procedures PRO LAPARSCOPY REPAIR PARAESOPHAGEAL HERNIA INCL FUNDOPLASTY W/O MESH LAPAROSCOPIC PARAESOPHAGEAL HERNIA REPAIR W/FUNDOPLASTY, W/O MESH (WRVU 26.6) MODIFIER TOUPET FUNDOPLASTY Shania Will MD [facility] [place] [address] [facility] Referral ID Status Reason Start Date Expiration Date Visits Re quested Visits Authorized [id number] 1 1 Encounter Details Date Type Department Care Team (Latest Contact Info) Description 03/05/2022 11:55 AM EDT - 03/07/2022 10:00 AM EDT Hospital Encounter [place] [id number] Shania Will MD [facility] [place] [address] Discharge Disposition: Home Social History Tobacco Use [...] of left breast of female, estrogen receptor [id number], Z17.0 ??? Anemia D64.9 ??? Aortic valve [...] Per chart review, her creatinine levels in [id number] ranged from 0.87-1.50 indicative of possible undiagnosed [...] [facility] [place] Arrive at: Senior Accounting Clerk Area [phone] Instructions Given to Patient at Discharge: Patient [...] hours please call the Surgery Clinic at [phone] before 5 PM on weekdays. For questions after hours and on weekends please call the hospital braille duplicating machine operator at [phone] and ask for the General Surgery resident button sewer. They may not be familiar with your [...] post Sly diet, as instructed by the consulting sme in the hospital for a period of [...] renal function. Please call the clinic at [phone] to confirm or reschedule. Future Appointments Date [...] [facility] [place] Arrive at: Senior Accounting Clerk Area Signed: Shena Harden MD 03/07/22 7:18 AM [facility] Primary [place] Physician: MD Geovany David DR [facility] [id number] documented in this encounter Discharge Instructions * [...] hours please call the Surgery Clinic at [phone] before 5 PM on weekdays. For questions after hours and on weekends please call the hospital braille duplicating machine operator at [phone] and ask for the General Surgery resident button sewer. They may not be familiar with your [...] post Sly diet, as instructed by the consulting sme in the hospital for a period of [...] renal function. Please call the clinic at [phone] to confirm or reschedule. Future Appointments Date [...] Clinical Nutrition was consulted to deliver a Lsy Diet Education to pt Digna Olson. Well Treatment Offsider metwith pt at bedside to deliver full [...] she is noticing some overall improvement post op.Well Treatment Offsider took note of this and encouraged the [...] Department contact information provided. Pt appreciate of bond underwriter's time. Nutrition to follow as needed. [...] Perez MD 03/05/2022 Minimally Invasive Surgery Pager #[phone] * Lorrie Slater RN - 03/05/2022 6:46 [...] She is followed by cardiology at [facility] [place], and is on xarelto. [...] of left breast of female, estrogen receptor [id number], Z17.0 ??? Anemia D64.9 ??? Aortic valve [...] Operative Note Patient Name: Digna Olson : [id number] MR#: [id number] Case Date: 03/05/2022 Surgeon: Surgeon(s) and Role: [...] Operative Note Patient Name: Digna Olson : [id number] MR#: [id number] Case Date: 03/05/2022 Surgeon: Surgeon(s) and Role: [...] Repair Paraesophageal Hernia Incl Fundoplasty W/O Mesh ([id number]) 03/05/2022 1:58 PM EDT Paraesophageal Hernia POCT [facility] Lymph % 12.1 % [facility] Lymphocytes Abs 0.8(L) 0.9 - 3.2 x10(3)/mc L [facility] Monocyte % 7.6 % [facility] Monocyte Abs 0.5 0.3 - 0.9 x10(3)/mc L [facility] Eos % 0.0 % [facility] Eosinophils Abs 0.0 0.0 - 0.4 x10(3)/mc L [facility] Basophil % 0.0 % [facility] Baso Absolute 0.0 0.0 - 0.1 x10(3)/[facility] Immature Gran % 0.30 % [facility] Comment: Immature granulocytes(IG's)percentage and absolute count will include metamyelocytes, myelocytes, and promyelocytes. Blood smears from CBCs yielding IG's will be scanned manually for concordance. If this scan disagrees with the automated IG or if promyelocytes are noted, a manual differential will be performed. Immature Gran Absolute 0.02 0.00 - 0.04 x10(3)/[facility] Blood 03/07/2022 5:08 AM EDT 03/07/2022 5:19 AM EDT Narrative Resulting Agency Comment Spec In Lab Nino Levy MD HEMATOLOGY ORDERABLE S Performing Organization Address City/State/[facility] Co de Phone Number [facility] [place] [address] * (ABNORMAL) Hemogram (03/07/2022 5:08 AM EDT) White Blood Cell 6.6 4.0 - 9.5 x10(3)/[facility] Red Blood Cell 3.16(L) 4.00 - 5.21 x10(6)/[facility] Hemoglobin 10.7(L) 11.7 - 15.5 g/dL [facility] Hematocrit 31.7(L) 35.7 - 45.8 % [facility] Mean Cell Volume 100.3(H) 82.6 - 94.4 fL [facility] Mean Cell Hemoglobin 33.9(H) 27.1 - 32.0 pg [facility] Mean Cell Hemoglobin Concentration 33.8 31.7 - 35.0 g/dL [facility] Platelet 110(L) 145 - 357 x10(3)/[facility] RDW Standard Deviation 47.5(H) 37.0 - 46.0 fL [facility] RDW coefficient of variation 12.9 11.5 - 14.1 % [facility] Mean Platelet Volume 11.7 7.6 - 12.9 fL [facility] NRBC% auto 0.0 % [facility] NRBC Absolute 0.000 0.000 - 0.000 x10(3)/mc L [facility] Blood 03/07/2022 5:08 AM EDT 03/07/2022 5:19 AM EDT Narrative Resulting Agency Comment Spec In Lab Nino Levy MD HEMATOLOGY ORDERABLE S [facility] [place] [address] * Phosphorus (03/07/2022 5:08 AM EDT) Phosphorus 2.7 2.5 - 4.5 mg/dL [facility] Blood 03/07/2022 5:08 AM EDT 03/07/2022 5:19 AM EDT Narrative Resulting Agency Comment Spec In Lab Shania Will MD CHEMISTRY ORDERABLE S Performing Organization Address City/[facility]/ZIP Co de Phone Number [facility] [place] [address] * Magnesium (03/07/2022 5:08 AM EDT) Magnesium 0.89 0.69 - 1.07 mmol/L [facility] Blood 03/07/2022 5:08 AM EDT 03/07/2022 5:19 AM EDT Narrative Resulting Agency Comment Spec In Lab Shania Will MD CHEMISTRY ORDERABLE S [facility] [place] [address] * (ABNORMAL) Basic Metabolic Panel (non-fasting) (03/07/2022 [...] Lab Shania Will [place] [address] * (ABNORMAL) Differential, Automated (03/06/2022 10:15 AM EDT) Pathologist [facility] Neutrophil % 90.7 % [facility] Neutrophil Absolute 5.79 1.70 - 6.10 x10(3)/ L [facility] Lymph % 5.0 % [facility] Lymphocytes Abs 0.3(L) 0.9 - 3.2 x10(3)/ L [facility] Monocyte % 3.8 % [facility] Monocyte Abs 0.2(L) 0.3 - 0.9 x10(3)/[facility] Eos % 0.0 % [facility] Eosinophils Abs 0.0 0.0 - 0.4 x10(3)/[facility] Basophil % 0.0 % [facility] [...] Absolute 0.03 0.00 - 0.04 x10(3)/ L [facility] Blood 03/06/2022 10:1 5 AM EDT 03/06/2022 10:21 AM EDT Narrative Resulting Agency Comment Spec In Lab Maryam MUELLER [place] [address] * (ABNORMAL) Hemogram (03/06/2022 10:15 AM EDT) [...] Platelet 111(L) 145 - 357 x10(3)/ L [facility] RDW Standard Deviation 47.2(H) 37.0 - 46.0 fL [facility] RDW coefficient of variation 12.9 11.5 - 14.1 % [facility] Mean Platelet Volume 11.5 7.6 - 12.9 fL [facility] NRBC% auto 0.0 % [facility] NRBC Absolute 0.000 0.000 - 0.000 x10(3)/mc L [facility] Blood 03/06/2022 10:1 5 AM EDT 03/06/2022 10:21 AM EDT Narrative Resulting Agency Comment Spec In Lab Maryam MUELLER HEMATOLOGY ORDERABL ES [facility] [place] [address] * Phosphorus (03/06/2022 10:15 AM EDT) Phosphorus 3.3 2.5 - 4.5 mg/dL [facility] Blood 03/06/2022 10:1 5 AM EDT 03/06/2022 10:21 AM EDT Narrative Resulting Agency Comment Spec In Lab Shania Will MD CHEMISTRY ORDERABLE S Performing Organization Address City/[facility]/ZIP Co de Phone Number [facility] [place] [address] * Magnesium (03/06/2022 10:15 AM EDT) Magnesium 0.69 0.69 - 1.07 mmol/L [facility] Blood 03/06/2022 10:1 5 AM EDT 03/06/2022 10:21 AM EDT Narrative Resulting Agency Comment Spec In Lab Shania Will MD CHEMISTRY ORDERABLE S Performing Organization Address [facility] Co de Phone Number [facility] [place] [address] * (ABNORMAL) Basic Metabolic Panel (non-fasting) (03/06/2022 10:15 AM EDT) Pathologist [facility] Glucose 155 65 - 199 mg/dL [facility] [...] MD CHEMISTRY ORDERABLE S Performing Organization Address City/State/[facility] Co de Phone Number [facility] [place] [address] * (ABNORMAL) Differential, Automated (03/06/2022 4:29 AM EDT) Neutrophil % 90.5 % [facility] Neutrophil Absolute 4.47 1.70 - 6.10 x10(3)/mc L [facility] Lymph % 6.9 % [facility] Lymphocytes Abs 0.3(L) 0.9 - 3.2 x10(3)/mc L [facility] Monocyte % 2.2 % [facility] Monocyte Abs 0.1(L) 0.3 - 0.9 x10(3)/mc L [facility] Eos % 0.0 % [facility] Eosinophils Abs 0.0 0.0 - 0.4 x10(3)/mc L [facility] Basophil % 0.2 % [facility] [...] Absolute 0.01 0.00 - 0.04 x10(3)/ L [facility] Blood 03/06/2022 4:29 AM EDT 03/06/2022 4:49 AM EDT Narrative Resulting Agency Comment Spec In Lab Prakash Mendez MD HEMATOLOGY ORDERABLE S [facility] [place] [address] * (ABNORMAL) Hemogram (03/06/2022 4:29 AM EDT) White Blood Cell 4.9 4.0 - 9.5 x10(3)/ L [facility] Red Blood Cell 3.08(L) 4.00 - 5.21 x10(6)/ L [facility] Hemoglobin 10.5(L) [...] Platelet 104(L) 145 - 357 x10(3)/ L [facility] RDW Standard Deviation 47.5(H) 37.0 - 46.0 fL [facility] RDW coefficient of variation 12.9 11.5 - 14.1 % [facility] Mean Platelet Volume 11.8 7.6 - 12.9 fL [facility] NRBC% auto 0.0 % [facility] NRBC Absolute 0.000 0.000 - 0.000 x10(3)/mc L [facility] Blood 03/06/2022 4:29 AM EDT 03/06/2022 4:49 AM EDT Narrative Resulting Agency Comment Spec In Lab Prakash Mendez MD HEMATOLOGY ORDERABLE S [facility] [place] [address] * (ABNORMAL) Basic Metabolic Panel (non-fasting) (03/06/2022 [...] CHEMISTRY ORDERABLE S [facility] [place] [address] * POCT Glucose (03/05/2022 12:18 PM EDT) Glucose, POC 94 65 - 199 mg/dL [facility] Comment: Supplemental ranges: <140 mg/dL before meals <180 mg/dL all other times of the day Blood 03/05/2022 12:1 8 PM EDT 03/05/2022 12:18 PM EDT Shania Will MD POINT OF CARE TEST ORDERABLES Performing Organization Address City/[facility]/ZIP Co de Phone Number [facility] [place] [address] documented in this encounter Visit Diagnoses Diagnosis [...] Unit) documented in this encounter Care Teams Steam Hoist Operator Relationship Specialty Start Date End Date Ana Her MD [address] [place] [address] PCP - General 07/29/13 documented as of this encounter
--- OUTSIDE RECORDS SUMMARY | 2024-05-25 10:51 | XMS_ITS | Encounter Summary ---
Author Organization [facility] [place] [address] Care Team Providers Care Internal Controls Analyst Name Role Phone Ana Her MD Primary Care Provider [phone] Encounter Details Date Type Department Care Team (Late st Contact Info) Description 03/09/2022 Telephone [place] [address] Prakash Mendez MD [facility] [place] [address] Social History Tobacco Use Types Packs/Day Years [...] the mobile number listed in her chart ([phone]). Her other daughter answered the phone and reported that she had just dropped her off in the Emergency Department at [facility] and parked the car. She was walking back to the building to be with her. I reassured her that going to the Emergency Department seemed like a reasonable plan. I assured her that we are always happy to see her here at [facility] anytime and that they could call back anytime with further questions or concerns. This note will be routed to the provider mentioned above. Prakash Mendez MD documented in this encounter Plan of Treatment Not on file documented as of this encounter Visit Diagnoses Not on filedocumented in this encounter Care Teams Internal Controls Analyst Relationship Specialty Start Date End Date Ana Her MD [address] [place] [address] PCP - General 07/29/13 documented as of this encounter
--- OUTSIDE RECORDS SUMMARY | 2024-05-25 10:51 | XMS_ITS | Encounter Summary ---
[place] [address] Care Team Providers Care Menhaden Vessel Pilot Name Role Phone Ana Her MD Primary Care Provider Encounter Details Date Type Department Care Team (Late st Contact Info) Description 10/23/2022 Telephone Mammography/[place] [phone] [place] Social History Tobacco Use Types [...] on filedocumented in this encounter Care Teams Menhaden Vessel Pilot Relationship Specialty Start Date End Date Ana Her MD [address] [place] [address] PCP - General 07/29/13 documented as of this encounter
--- OUTSIDE RECORDS SUMMARY | 2024-05-25 10:51 | XMS_ITS | Encounter Summary ---
[place] [address] Care Team Providers Care Yard Driver Name Role Phone Ana Her MD Primary Care Provider [phone] Reason for Visit * Auth/Cert Specialty Diagnoses / Procedures Referred By Christiano hackett Referred To Contact Diagnoses S/P repair of paraesophageal hernia Post-Op monitoring Procedures PRO LAPARSCOPY REPAIR PARAESOPHAGEAL HERNIA INCL FUNDOPLASTY W/O MESH LAPAROSCOPIC PARAESOPHAGEAL HERNIA REPAIR W/FUNDOPLASTY, W/O MESH (WRVU 26.6) MODIFIER TOUPET FUNDOPLASTY Shania Will MD [facility] [place] [address] [facility] Referral ID Status Reason Start Date Expiration Date Visits Re quested Visits Authorized [id number] 1 1 Encounter Details Date Type Department Care Team (Late st Contact Info) Description 03/05/2022 12:54 PM EDT - 03/05/2022 4:55 PM EDT Surgery [place] [id number] Shania Will MD [facility] [place] [address] LAPAROSCOPIC PARAESOPHAGEAL HERNIA REPAIR W/FUNDOPLASTY, W/O MESH [...] of left breast of female, estrogen receptor udlmhigzZ15.512, Z17.0 ??? Anemia D64.9 ??? Aortic valve [...] Per chart review, her creatinine levels in 8857-8197 ranged from 0.87-1.50 indicative of possible undiagnosed [...] PM Shania Will MD General Surgery at [facility] [place]rive at: [facility] [facility] [phone] Instructions Given to Patient at Discharge: Patient [...] hours please call the Surgery Clinic at [phone] before 5 PM on weekdays. For questions after hours and on weekends please call the hospital monorail crane operator at [phone] and ask for the General Surgery resident clinical education manager. They may not be familiar with [...] post Sly diet, as instructed by the head of strategy in the hospital for a period of [...] renal function. Please call the clinic at [phone] to confirm or reschedule. Future Appointments Date Time Provider Department Center 04/03/2022 12:00 PM Shania Will MD [facility] General Instructions None Future Appointments and Orders Future Appointments and Orders Future Appointments Provider Department Dept Phone 04/03/2022 12:00 PM Shania Will MD General Surgery at [facility] Arrive at: [place] Area 4L [phone] Signed: Shena Harden MD 03/07/22 7:18 AM [phone] Primary Saima Physician: MD Geovany David DR [facility] [id number] documented in this encounter Discharge Instructions * [...] hours please call the Surgery Clinic at [phone] before 5 PM on weekdays. For questions after hours and on weekends please call the hospital monorail crane operator at [phone] and ask for the General Surgery resident clinical education manager. They may not be familiar with [...] post Sly diet, as instructed by the head of strategy in the hospital for a period of [...] renal function. Please call the clinic at [phone] to confirm or reschedule. Future Appointments Date Time Provider Department Center 04/03/2022 12:00 PM Shania Will MD [facility] documented in this encounter Medications at Time [...] Ocampo RN - 03/07/2022 10:25 AM EDT [facility] Short Stay Unit Discharge Note All [...] Sly Diet Education to pt Digna Olson. Pharmacy Technician Per Diem metwith pt at bedside to deliver full [...] she is noticing some overall improvement post op.Pharmacy Technician Per Diem took note of this and encouraged the [...] Department contact information provided. Pt appreciate of music writer's time. Nutrition to follow as needed. [...] Perez MD 03/05/2022 Minimally Invasive Surgery Pager #[phone] * Lorrie Slater RN - 03/05/2022 6:46 [...] [facility], and is on xarelto. ?? Impression: ??Symptomatic [...] of left breast of female, estrogen receptor lxaargcxN31.512, Z17.0 ??? Anemia D64.9 ??? Aortic valve [...] 6.43) performed by Malika Chen MD at [facility] MAIN OR ??? PRO INTRAOP SENTINEL LYMPH ID W/DYE INJECTION Left 03/30/2017 ?? INTRAOPERATIVE ID (MAPPING) SENTINEL LYMPH NODE,INCLUDES INJECTION (WRVU 2.5) performed by Malika Chen MD at [facility] MAIN OR ??? PRO MASTECTOMY PARTIAL Left 03/30/2017 ?? MASTECTOMY PARTIAL (WRVU 10.13) performed by Malika Chen MD at [facility] MAIN OR ?? Cholecystectomy ?? Medications: [...] in this encounter Nursing Notes * Pretty Hapmton RN - 03/06/2022 5:54 AM EDT 0300: Assumed care of pt. Monitors on, alarms active and audible. documented in this encounter Miscellaneous Notes * Brief Op Note - Prakash Mendez - 03/05/2022 5:54 PM EDT Brief Operative Note Patient Name: Digna Olson : [id number] MR#: [id number] Case Date: 03/05/2022 Surgeon: Surgeon(s) and Role: [...] Flores MD - 03/05/2022 2:32 PM EDT [facility] Operative Note Patient Name: Digna Olson : [id number] MR#: [id number] Case Date: 03/05/2022 Surgeon: Surgeon(s) and Role: [...] Repair Paraesophageal Hernia Incl Fundoplasty W/O Mesh (84905) 03/05/2022 1:58 PM EDT Paraesophageal Hernia POCT GLUCOSE Routine 03/05/2022 12:18 PM EDT LAPAROSCOPIC PARAESOPHAGEAL HERNIA REPAIR W FUNDOPLASTY, W/O MESH Routine 03/05/2022 12:02 PM EDT documented in this encounter Results * (ABNORMAL) Differential, Automated (03/07/2022 5:08 AM EDT) Neutrophil % 80.0 % [facility] Neutrophil Absolute 5.30 1.70 - 6.10 x10(3)/mc L [facility] Lymph % 12.1 % [facility] Lymphocytes Abs 0.8(L) 0.9 - 3.2 x10(3)/mc L [facility] Monocyte % 7.6 % [facility] Monocyte Abs 0.5 0.3 - 0.9 x10(3)/mc L [facility] Eos % 0.0 % [facility] Eosinophils Abs 0.0 0.0 - 0.4 x10(3)/[facility] Basophil % 0.0 % [facility] Baso Absolute 0.0 0.0 - 0.1 x10(3)/[facility] Immature Gran % 0.30 % [facility] Comment: Immature granulocytes(IG's)percentage and absolute count will include metamyelocytes, myelocytes, and promyelocytes. Blood smears from CBCs yielding IG's will be scanned manually for concordance. If this scan disagrees with the automated IG or if promyelocytes are noted, a manual differential will be performed. Immature Gran Absolute 0.02 0.00 - 0.04 x10(3)/[facility] Blood 03/07/2022 5:08 AM EDT 03/07/2022 5:19 AM EDT Narrative Resulting Agency Comment Spec In Lab Nino Levy MD HEMATOLOGY ORDERABLE S [facility] [place] [address] * (ABNORMAL) Hemogram (03/07/2022 5:08 AM EDT) White Blood Cell 6.6 4.0 - 9.5 x10(3)/[facility] Red Blood Cell 3.16(L) 4.00 - 5.21 x10(6)/[facility] Hemoglobin 10.7(L) 11.7 - [...] RDW Standard Deviation 47.5(H) 37.0 - 46.0 [facility] RDW coefficient of variation 12.9 11.5 - 14.1 % [facility] Mean Platelet Volume 11.7 7.6 - 12.9 [facility] NRBC% auto 0.0 % [facility] NRBC Absolute 0.000 0.000 - 0.000 x10(3)/mc L [facility] Blood 03/07/2022 5:08 AM EDT 03/07/2022 5:19 AM EDT Narrative Resulting Agency Comment Spec In Lab Nino Levy MD HEMATOLOGY ORDERABLE S Performing Organization Address City/[facility]/[place] [address] * Phosphorus (03/07/2022 5:08 AM EDT) Phosphorus 2.7 2.5 - 4.5 mg/dL [facility] Blood 03/07/2022 5:08 AM EDT 03/07/2022 5:19 AM EDT Narrative Resulting Agency Comment Spec In Lab Shania Will MD CHEMISTRY ORDERABLE S Performing Organization Address City/[facility]/ZIP Co de Phone Number [facility] [place] [address] * Magnesium (03/07/2022 5:08 AM EDT) Magnesium 0.89 0.69 - 1.07 mmol/L [facility] Blood 03/07/2022 5:08 AM EDT 03/07/2022 5:19 AM EDT Narrative Resulting Agency Comment Spec In Lab Shania Will MD CHEMISTRY ORDERABLE S [facility] [place] [address] * (ABNORMAL) Basic Metabolic Panel (non-fasting) (03/07/2022 [...] MD CHEMISTRY ORDERABLE S Performing Organization Address City/[facility]/ZIP Co de Phone Number [facility] [place] [address] * (ABNORMAL) Differential, Automated (03/06/2022 10:15 AM EDT) Neutrophil % 90.7 % [facility] Neutrophil Absolute 5.79 1.70 - 6.10 x10(3)/mc L [facility] Lymph % 5.0 % [facility] Lymphocytes Abs 0.3(L) 0.9 - 3.2 x10(3)/mc L [facility] Monocyte % 3.8 % [facility] Monocyte Abs 0.2(L) 0.3 - 0.9 x10(3)/mc L [facility] Eos % 0.0 % [facility] Eosinophils Abs 0.0 0.0 - 0.4 x10(3)/[facility] Basophil % 0.0 % [facility] [...] MUELLER HEMATOLOGY ORDERABL ES Performing Organization Address City/[facility]/ZIP Co de Phone Number [facility] [place] [address] * (ABNORMAL) Hemogram (03/06/2022 10:15 AM EDT) [...] HOSPITAL LABORATORY Platelet 111(L) 145 - 357 x10(3)/[facility] RDW Standard Deviation 47.2(H) 37.0 - 46.0 [facility] RDW coefficient of variation 12.9 11.5 - 14.1 % [facility] Mean Platelet Volume 11.5 7.6 - 12.9 [facility] NRBC% auto 0.0 % [facility] NRBC Absolute 0.000 0.000 - 0.000 x10(3)/ L [facility] Blood 03/06/2022 10:1 5 AM EDT 03/06/2022 10:21 AM EDT Narrative Resulting Agency Comment Spec In Lab Maryam MUELLER HEMATOLOGY ORDERABL ES [facility] [place] [address] * Phosphorus (03/06/2022 10:15 AM EDT) Phosphorus 3.3 2.5 - 4.5 mg/dL [facility] Blood 03/06/2022 10:1 5 AM EDT 03/06/2022 10:21 AM EDT Narrative Resulting Agency Comment Spec In Lab Shania Will MD CHEMISTRY ORDERABLE S [facility] [place] [address] * Magnesium (03/06/2022 10:15 AM EDT) Magnesium 0.69 0.69 - 1.07 mmol/L [facility] Blood 03/06/2022 10:1 5 AM EDT 03/06/2022 10:21 AM EDT Narrative Resulting Agency Comment Spec In Lab Shania Will MD CHEMISTRY ORDERABLE S Performing Organization Address City/[facility]/ZIP Co de Phone Number [facility] [place] [address] * (ABNORMAL) Basic Metabolic Panel (non-fasting) (03/06/2022 [...] [facility] Co de Phone Number [facility] [place] [address] * (ABNORMAL) Differential, Automated (03/06/2022 4:29 AM EDT) Neutrophil % 90.5 % [facility] Neutrophil Absolute 4.47 1.70 - 6.10 x10(3)/mc L [facility] Lymph % 6.9 % [facility] Lymphocytes Abs 0.3(L) 0.9 - 3.2 x10(3)/mc L [facility] Monocyte % 2.2 % [facility] Monocyte Abs 0.1(L) 0.3 - 0.9 x10(3)/mc L [facility] Eos % 0.0 % [facility] Eosinophils Abs 0.0 0.0 - 0.4 x10(3)/mc L [facility] Basophil % 0.2 % [facility] [...] Immature Gran Absolute 0.01 0.00 - 0.04 x10(3)/[facility] Blood 03/06/2022 4:29 AM EDT 03/06/2022 4:49 AM EDT Narrative Resulting Agency Comment Spec In Lab Prakash Mendez MD HEMATOLOGY ORDERABLE S [facility] [place] [address] * (ABNORMAL) Hemogram (03/06/2022 4:29 AM EDT) White Blood Cell 4.9 4.0 - 9.5 x10(3)/[facility] Red Blood Cell 3.08(L) 4.00 - 5.21 x10(6)/[facility] Hemoglobin 10.5(L) 11.7 - 15.5 [...] HOSPITAL LABORATORY Platelet 104(L) 145 - 357 x10(3)/[facility] RDW Standard Deviation 47.5(H) 37.0 - 46.[address] [facility] RDW coefficient of variation 12.9 11.5 - 14.1 % [facility] Mean Platelet Volume 11.8 7.6 - 12.[address] [facility] NRBC% auto 0.0 % [facility] NRBC Absolute 0.000 0.000 - 0.000 x10(3)/mc L [facility] Blood 03/06/2022 4:29 AM EDT 03/06/2022 4:49 AM EDT Narrative Resulting Agency Comment Spec In Lab Prakash Mendez MD HEMATOLOGY ORDERABLE S [facility] [place] [address] * (ABNORMAL) Basic Metabolic Panel (non-fasting) (03/06/2022 [...] MD CHEMISTRY ORDERABLE S Performing Organization Address City/[facility]/ZIP Co de Phone Number [facility] [place] [address] * POCT Glucose (03/05/2022 12:18 PM EDT) Glucose, POC 94 65 - 199 mg/dL [facility] Comment: Supplemental ranges: <140 mg/dL before meals <180 mg/dL all other times of the day Blood 03/05/2022 12:1 8 PM EDT 03/05/2022 12:18 PM EDT Shania Will MD POINT OF CARE TEST ORDERABLES Performing Organization Address City/[facility]/ZIP Co de Phone Number [facility] [place] [address] documented in this encounter Visit Diagnoses Not [...] Unit) documented in this encounter Care Teams Yard Driver Relationship Specialty Start Date End Date Ana Her MD [address] [facility] [address] [place] [address] PCP - General 07/29/13 documented as of this encounter
--- OUTSIDE RECORDS SUMMARY | 2024-05-25 10:51 | XMS_ITS | Encounter Summary ---
[place] [address] Care Team Providers Care Geotechnical Intern Name Role Phone Ana Her MD Primary Care Provider [phone] Encounter Details Date Type Department Care Team (Late st Contact Info) Description 02/04/2022 12:00 PM EDT [place] [address] Social History Tobacco Use Types Packs/Day Years [...] on filedocumented in this encounter Care Teams Geotechnical Intern Relationship Specialty Start Date End Date Ana Her MD [address] [place] [address] PCP - General 07/29/13 documented as of this encounter
--- OUTSIDE RECORDS SUMMARY | 2024-05-25 10:51 | XMS_ITS | Encounter Summary ---
Author Organization [facility] [place] [address] Care Team Providers Care Mails Supervisor Name Role Phone Ana Her MD Primary Care Provider [phone] Reason for Visit * Consultation (Routine) - Closed Specialty Diagnoses / Procedures Referred By Christiano hackett Referred To Contact General Surgery Diagnoses Hiatal hernia Ana Her MD [address] [place] [address] [facility] [address] [place] [address] Referral ID Status Reason Start Date Expiration Date V isits Requested Visits Authorized [id number] Closed Consult, Test & Treat 09/23/2021 09/23/2022 6 6 Encounter Details Date Type Department Care Team (Latest Contact Info) Description 12/05/2021 3:00 PM EDT Office [place] [address] Laura Will MD [facility] [place] [address] Paraesophageal hernia Social History Tobacco [...] of left breast of female, estrogen receptor pyzqofdoK94.512, Z17.0 ??? Anemia D64.9 ??? Aortic valve [...] 6.43) performed by Malika Chen MD at [facility] MAIN OR ??? PRO INTRAOP SENTINEL LYMPH ID W/DYE INJECTION Left 03/30/2017 INTRAOPERATIVE ID (MAPPING) SENTINEL LYMPH NODE,INCLUDES INJECTION (WRVU 2.5) performed by Malika Chen MD at [facility] MAIN OR ??? PRO MASTECTOMY PARTIAL Left 03/30/2017 MASTECTOMY PARTIAL (WRVU 10.13) performed by Malika Chen MD at [facility] MAIN OR Cholecystectomy Medications: Current [...] gangrene documented in this encounter Care Teams Mails Supervisor Relationship Specialty Start Date End Date Ana Her MD [address] [place] [address] PCP - General 07/29/13 documented as of this encounter
--- OUTSIDE RECORDS SUMMARY | 2024-05-25 10:51 | XMS_ITS | Encounter Summary ---
[place] [address] Care Team Providers Care Maple Products Supervisor Name Role Phone Ana Her MD Primary Care Provider [phone] Reason for Visit * Auth/Cert Specialty Diagnoses / Procedures Referred By Christiano hackett Referred To Contact Diagnoses S/P repair of paraesophageal hernia Post-Op monitoring Procedures PRO LAPARSCOPY REPAIR PARAESOPHAGEAL HERNIA INCL FUNDOPLASTY W/O MESH LAPAROSCOPIC PARAESOPHAGEAL HERNIA REPAIR W/FUNDOPLASTY, W/O MESH (WRVU 26.6) MODIFIER TOUPET FUNDOPLASTY Laura Will MD [facility] [place] [address] [facility] Referral ID Status Reason Start Date Expiration Date Visits Re quested Visits Authorized [id number] 1 1 Encounter Details Date Type Department Care Team (Late st Contact Info) Description 03/05/2022 1:58 PM EDT Anesthesia Event [place] [phone] Alisa Naqvi MD [facility] [place] [address] Alessia Ramirez [place] [address] Anesthesia Record Procedure Summary Procedure Name Responsible [...] Procedure Summary Date: 03/05/22 Room / Location: [address] MAIN OR Anesthesia Start: 8 Anesthesia Stop: 1823 Procedures: LAPAROSCOPIC PARAESOPHAGEAL HERNIA REPAIR W/FUNDOPLASTY, W/O MESH (WRVU 26.6) (N/A Abdomen) MODIFIER TOUPET FUNDOPLASTY (N/A Abdomen) Diagnosis: (Paraesophageal Hernia) Surgeons: Laura Will MD Responsible Provider: Alisa Naqvi MD Anesthesia Type: general ASA Status: 3 All Anesthesia Providers: Anesthesiologist: Brayan Hubbard MD; Alisa Naqvi MD; Dario Franco MD Supervisor Shipping Room: Mo Vance DO Vitals Value Taken Time BP 125/75 03/05/22 1821 Temp Pulse 77 03/05/22 1823 Resp 18 03/05/22 1823 SpO2 100 % 03/05/22 182 Pain Level Vitals shown include unvalidated device data. Patient Location: PACU/[facility] Level of Consciousness: Awake and Alert [...] of left breast of female, estrogen receptor umjdvton32/25/2017 ??? Bicuspid aortic valve 06/10/2016 ??? Dyspnea [...] performed by Malika Chen MD at [facility] MAIN OR ??? PRO INTRAOP SENTINEL LYMPH ID W/DYE INJECTION Left 03/30/2017 INTRAOPERATIVE ID (MAPPING) SENTINEL LYMPH NODE,INCLUDES INJECTION (WRVU 2.5) performed by Malika Chen MD at [facility] MAIN OR ??? PRO MASTECTOMY PARTIAL Left 03/30/2017 MASTECTOMY PARTIAL (WRVU 10.13) performed by Malika Chen MD at [facility] MAIN OR ??? PRO UPPER GI ENDOSCOPY, DIAGNOSTIC N/A 01/08/2022 EGD, UPPER GI ENDOSCOPY performed by Laura Will MD at [facility] MAIN OR Social History Tobacco [...] sneeze Cardiac Hx: Exercise stress test 10/07/21 : Resting electrocardiogram showed atrial fibrillation, right BBB, left anterior fascicular block. Patient achieved 4.64METS, achieved 93% of predicted HR for age. Electrocardiographic portion of test negative for ischemia. MPI negative for ischemia or infarction. EF 45%. Wall motion normal. ?? Echo 06/19/21 ([facility]): normal biventricular size and function, [...] PONV ppx Mo Shreyas DO Pinky 03/04/2022 Service Specialist Pager #[phone] Region - Other Informed Consent: Anesthetic plan [...] GERD (omeprazole) ?? Exercise stress test 10/07/21 : Resting electrocardiogram showed atrial fibrillation, right BBB, left anterior fascicular block. Patient achieved 4.64METS, achieved 93% of predicted HR for age. Electrocardiographic portion of test negative for ischemia. MPI negative for ischemia or infarction. EF 45%. Wall motion normal. ?? Echo 06/19/21 ([facility]): normal biventricular size and function, [...] 1 view ?? Followed by cardiology at [facility], notes under Care Everywhere. Last [...] mg documented in this encounter Care Teams Maple Products Supervisor Relationship Specialty Start Date End Date Ana Her MD [address] [facility] [address] [place] [address] PCP - General 07/29/13 documented as of this encounter
--- OUTSIDE RECORDS SUMMARY | 2024-05-25 10:51 | XMS_ITS | Encounter Summary ---
[place] [address] Care Team Providers Care Junior Copywriter Name Role Phone Ana Her MD Primary Care Provider [phone] Encounter Details Date Type Department Care Team (Late st Contact Info) Description 01/08/2022 7:30 AM EDT - 01/08/2022 8:40 AM EDT Surgery [place] [id number] Laura Park MD [facility] [place] [address] EGD, UPPER GI ENDOSCOPY (WRVU 2.09) Social [...] a nurse in the Thoracic Clinic at [phone]. After hours or on weekends or holidays please call: [phone] and ask to speak to the Thoracic Physician bone grinder. Diet: You should follow a clear liquid [...] - 5pm): General Surgery and Bariatric Surgery [phone] Bariatric Surgeons: Drs. Park and John [phone] [employer]: [phone] Dietitians: [phone] Outside of regular business hours, including weekends and holidays: Ask for General Surgery resident bone grinder [phone] Please note, this call will be answered [...] of left breast of female, estrogen receptor [id number], Z17.0 ??? Anemia D64.9 ??? Aortic valve [...] 6.43) performed by Malika Chen MD at [facility] MAIN OR ??? PRO INTRAOP SENTINEL LYMPH ID W/DYE INJECTION Left 03/30/2017 ?? INTRAOPERATIVE ID (MAPPING) SENTINEL LYMPH NODE,INCLUDES INJECTION (WRVU 2.5) performed by Malika Chen MD at [facility] MAIN OR ??? PRO MASTECTOMY PARTIAL Left 03/30/2017 ?? MASTECTOMY PARTIAL (WRVU 10.13) performed by Malika Chen MD at [facility] OR ?? Cholecystectomy ?? Medications: [...] Operative Note Patient Name: Digna Olson : [id number] MR#: [id number] Case Date: 01/08/2022 Surgeon: Surgeon(s) and Role: [...] Info Order Time SPECIMEN TO PATHOLOGY Gastric [place] for H Pylori Hiatal hernia Gastric [place] for H Pylori excision 01/08/2022 8:15 AM [...] 8:14 AM EDT Upper GI Endoscopy, Diagnostic ([id number]) Yes 01/08/2022 7:40 AM EDT Hiatal hernia POCT GLUCOSE Routine 01/08/2022 6:33 AM EDT documented in this encounter Results * Specimen to Pathology (01/08/2022 8:15 AM EDT) AP Specimen 01/08/2022 8:15 AM EDT 01/08/2022 8:15 AM EDT Narrative [facility] - 01/08/2022 8:15 AM EDT Specimen requisition ordered. ??Separate Pathology report to follow Laura Park MD PATHOLOGY/CYTOLOGY ORDERABLES [facility] [address] * Surgical Pathology Report (01/08/2022 8:14 AM EDT) Final Diagnosis [id number] ? Location: SDP; SD36; A The signing pathologist has (i) examined the relevant preparation(s) for the specimen(s) and (ii) rendered or confirmed the diagnosis(es). . ?Surgical Pathology DIAGNOSIS A - Gastric ??Antrum for H Pylori, excision: - ??Antrum-type mucosa with reactive gastropathy. Electronically signed by: ?Umang Raymundo MD Verified: ??01/09/2022 16:36 ??Pathologist Performed at: ??-[facility] Dept. of Pathology, [place], [place] SPECIMEN(S) SUBMITTED A - Gastric ??Antrum for H Pylori, excision (1) CLINICAL INFORMATION Hiatal hernia SPECIMEN PROCESSING A - Labeled/Fixativ e: Gastric antrum for H. pylori, formalin. Quantity/Size: Single, 0.3 cm. Tissue Description: Soft, pink tissue. Sections/Proces sing: Submitted en toto ??in 1 cassette labeled A1. ??sns 01/09/2022 4:36 PM EDT [facility] GI Biopsy 01/08/2022 8:14 AM EDT 01/08/2022 8:14 AM EDT Laura Park MD PATHOLOGY/CYTOLOGY ORDERABLES Performing Organization Address City/State/[facility] Co de Phone Number [facility] [place] [address] * POCT Glucose (01/08/2022 6:33 AM EDT) Glucose, POC 120 65 - 199 mg/dL [facility] Comment: Supplemental ranges: <140 mg/dL before meals <180 mg/dL all other times of the day Blood 01/08/2022 6:33 AM EDT 01/08/2022 6:33 AM EDT Laura Park MD POINT OF [place] [address] documented in this encounter Visit Diagnoses Not on filedocumented in this encounter Active and Recently Administered Medications Care Teams Junior Copywriter Relationship Specialty Start Date End Date Ana Her MD [address] [facility] [address] [place] [address] PCP - General 07/29/13 documented as of this encounter
--- OUTSIDE RECORDS SUMMARY | 2024-05-25 10:51 | XMS_ITS | Encounter Summary ---
Author Organization [facility] [place] [address] Care Team Providers Care Manufacturing Clerk Name Role Phone Ana Her MD Primary Care Provider [phone] Encounter Details Date Type Department Care Team (Latest Contact Info) Description 01/23/2022 12:15 PM EDT TH Visit (TeleHealth) [place] [address] Laura Will MD [facility] [place] [address] Paraesophageal hernia Social History Tobacco Use Types [...] her. She is followed by cardiology at [facility], and is on xarelto. Impression: Symptomatic [...] gangrene documented in this encounter Care Teams Manufacturing Clerk Relationship Specialty Start Date End Date Ana Her MD [address] [facility] [address] [place] [address] PCP - General 07/29/13 documented as of this encounter
--- OUTSIDE RECORDS SUMMARY | 2024-05-25 10:51 | XMS_ITS | Continuity of Care Document ---
Author Organization [facility] [place] [address] Care Team Providers Care Verse Writer Name Role Phone GABINODC Manager Advertising [facility] Orthopedic Surgeon [facility] Sleep Medicine [facility] Online Facilitator Assessment Encounter Date Assessment Date Assessment LastModified by Organization Details LastModified Time 03/04/2024 03/04/2024 The total time devoted to today's encounter, including both the qlkl-lv-pqdy time with the patient and/or family/caregi josefina and yqg-sxkz-af-f patrick time I personally spent is 44 minutes. Not available 03/04/2024 17:47:18 Plan of Treatment Reminders Order Date Submit Date Provider Last Modified By Organization Details Last Modified Time Details Appointments None recorded. Lab BMP, serum or plasma 2023 024 [facility] (Registration ), [address] [place] [address] [place], [address], 4 11:42:49 vitamin D, 25-hydroxy, total, serum 2023 024 [facility] (Registration ), [address] [place] [address] [place], [address], 4 16:09:19 HbA1c (hemoglobin A1c), blood 2023 024 [facility] (Registration ), [address] [place] [address] [place], [address], 4 11:39:49 TSH, serum, reflex free T4 2023 024 [facility] (Registration ), [address] [place] [address] [place], [address], 4 11:40:25 CBC 2023 [facility] (Registration ), [address] [place] [address] [place], [address], 4 15:08:25 ferritin, serum or plasma 2023 024 [facility] (Registration ), [address] [place] [address] [place], [address], 4 11:41:22 iron + total iron-bindin g capacity (TIBC), serum 2023 [facility] (Registration ), [address] [place] [address] [place], [address], 4 11:43:17 Referral None recorded. Procedures None recorded. Surgeries None recorded. Imaging None recorded. Medication Orders hydromorpho ne 2 mg tablet 2023 [facility], [address] [place], [address], 4 15:12:30 levothyroxi ne 75 mcg tablet 2023 024 [facility], [address] [place], [address], 4 16:32:19 Patient TargetsNo targets recorded. Patient InstructionsNo instructions recorded. 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 None Reported. Problems Name Problem SNOMED Code Status Onset Date Resolution Date Notes Provider Name and Address Organization Details Recorded Time Osteopor otic fracture Active 2023 Zoledron ate started at time of humeral fracture 2023- MD [address], [place], [address] , [facility] 4 17:34:10 Hypothyr oidism 06266134 Active 1959 EVIE VIRAMONTESUE [facility], [facility] 4 10:29:59 [facility]ia l hyperten jason 47221299 Active 1959 EVIE RUFUS shaw, [facility] 4 10:29:36 Hyperlip idemia 73135088 Active 1959 on statin MD [address], [place], [address] , [facility] 4 20:35:18 Spinal stenosis of lumbar region 61885348 Active 2012 s/p lumbar foramino parish L4 MD [address], [place], [address] , [facility] 4 20:36:41 Sleep apnea 13724534 Active 2012 on CPAP MD [address], [place], [address] , [facility] 4 20:39:31 Gastroes ophageal reflux disease without esophagi tis 122925928 Completed 195908/12/2023 Removal Reason: resolved with surgical repair of HH MD [address], [place], [address] , [facility] 4 10:41:24 Family history of malignan t neoplasm of digestiv e organ 396958052 Active [address], [place], [address] , [facility] 4 20:37:03 Paresthe samir 46397672 Completed 201412/01/2014 11/28/19 15 - Comments only - Ana Her MD - check B12 and folate Problem Code: R20.2; Problem Code Type: ICD-10; Not Available Critical access hospital 3 05:53:48 Adult health examinat ion Active [address], [place], [address] , [facility] 4 20:33:34 Pre-surg ruben evaluati [...] access hospital 3 05:53:48 Localize d edema 748647542 Completed 201501/29/2016 12/13/19 16 - Comments only - Ana Her MD - and some on left as well, will check BMP. 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 Nusrat holtk for removal. Problem Code: L72.3; Problem Code Type: ICD-10; Not Available Critical access hospital 3 05:53:49 Chronic ulcer of foot 709621922 Completed 201601/16/2017 12/18/19 17 - Comments only - Ana Her MD - Due to injury. This does appear to have some granulat ion tissue and to be healing. She is given a prescrip tion for Keflex to take only if erythema seems to be extendin g. Problem Code: L97.509; Problem Code Type: ICD-10; Not Available Critical access hospital 3 05:53:49 Diarrhea 65812999 Completed 201602/10/2017 02/05/20 17 - Comments only - Ana Her MD - Persiste nt over several months, we will collect stool for C. 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 6 mm PT1NO E2P2 poistive , HER2 negative MD [address], [place], [address] , [facility], [facility] 4 20:38:49 Pain in left lower limb 617143450 Active 2016 EVIE shaw, [facility]. 4 10:32:00 Pain in thoracic spine 657946950 Active 2016 EVIE shaw, [facility] 4 10:32:06 Spasm 54586041 Active 2017 EVIE shaw, [facility] 4 10:33:28 Abdomina l distensi on, gaseous 565793350 Completed 201703/08/2018 Problem Code: R14.0; Problem Code Type: ICD-10; Not Available Critical access hospital 3 05:53:50 Cellulit is of toe 48869134 Completed 201808/12/2018 Problem Code: L03.039; Problem Code Type: ICD-10; Not Available [facility] 3 05:53:51 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 2018 Danica shaw, [facility] 4 14:36:02 Tachycar lea 9760436 Completed 201811/25/2018 Problem Code: R00.0; Problem Code Type: ICD-10; Not Available [facility] 3 05:53:51 Pre-surg ruben evaluati on Completed 201811/25/2018 Problem Code: Z01.818; Problem Code Type: ICD-10; Not Available [facility] 3 05:53:51 Iron deficien cy anemia 28253386 Active 2019 elevated MCV: normal B12 2021, normal folate 2018 IV iron 2023 EGD 01/2022 paraesop hageal hernia (since repaired ) colo 03/[address], [place], [address] , [facility], [facility]. 4 11:44:45 Lumbago with sciatica 186652262 Completed 201903/16/2020 02/24/20 20 - Comments only - Vy Pinon RETAIL LEASING AGENT - Likely aggravat ed by increase d [...] access hospital 3 05:53:52 Right side sciatica 36173995109 9101 Active 2019 EVIE HOOPER [facility] 4 10:33:09 Left side sciatica 04654574950 9104 Active [address], [place], [address] , [facility] 4 17:20:20 Diaphrag matic hernia 76304156 Completed 202108/11/2023 Removal Reason: s/p repair MD [address], [place], [address] , [facility] 4 20:50:39 History of SARS-CoV -2 38584087339 3402137 Completed 202104/04/2022 03/21/20 22 - Comments only - Ana Her MD - testing is negative today in the office. Still some fatigue but otherwis e recoveri ng. Did get MAB. Already had covid bivalent booster prior to illness Problem Code: Z86.16; Problem Code Type: ICD-10; Not Available Critical access hospital 3 05:53:53 Diarrhea 03322735 Completed 202104/18/2022 Problem Code: R19.7; Problem Code Type: ICD-10; MD [address], [place], [address] , [facility] 4 21:03:02 Screenin g mammogra phy Completed 202208/11/[address], [place], [address] , [facility] 4 20:36:56 Carpal tunnel syndrome of left wrist 11247614462 9102 Completed 202201/23/2023 Problem Code: G56.02; Problem Code Type: ICD-10; Not Available Critical access hospital 4 05:37:46 Diarrhea 42858248 Active 2022 started colestip ol 01/[address], [place], [address] , [facility] 4 21:03:02 Carpal tunnel syndrome of right wrist 83840684328 9108 Completed 201803/19/2020 Problem Code: G56.01; Problem Code Type: ICD-10; Not Available Critical access hospital 3 05:53:55 Pain of left knee joint 43188216735 4107 Completed 202107/30/2022 Problem Code: M25.562; Problem Code Type: ICD-10; Not Available Critical access hospital 3 05:53:55 Hypersom korina 93196833 Completed 201311/27/2014 Problem Code: 780.54; Problem Code Type: ICD-9; Not Available Critical access hospital 3 05:53:56 Screenin g for disorder Completed 201909/11/2021 Problem Code: Z13.9; Problem Code Type: ICD-10; Not Available Critical access hospital 3 05:53:56 Anemia 050902628 Completed 201903/19/2020 Problem Code: D64.9; Problem Code Type: ICD-10; Not Available Critical access hospital 3 05:53:56 Long-ter m current use of anticoag ulant 638147961 Completed 201709/01/2018 Problem Code: Z79.01; Problem Code Type: ICD-10; Not Available Critical access hospital 3 05:53:57 Chronic rhinitis 89965334 Completed 202108/12/2021 Problem Code: J31.0; Problem Code Type: ICD-10; Not Available Critical access hospital 3 05:53:57 Impaired fasting glycemia 807939335 Completed 201401/28/2023 Not Available Critical access hospital 3 05:53:57 Fatigue 11241467 Completed 201903/19/2020 Problem Code: R53.83; Problem Code Type: ICD-10; Not Available Critical access hospital 3 05:53:58 Upper respirat ory tract infectio n caused by Influenz a A 89175533839 9104 Completed 201707/02/2017 Problem Code: J09.x2; Problem Code Type: ICD-10; Not Available Critical access hospital 3 05:53:59 Diarrhea 40943094 Completed 201709/01/2018 ANA HER MD [facility] [address], [place], [address] , [facility]. 4 21:03:02 Acute upper respirat ory infectio n 72991504 Completed 202108/26/2021 Problem Code: J06.9; Problem Code Type: ICD-10; Not Available Critical access hospital 3 05:53:59 Pain in right foot 85218314587 9107 Completed 202207/30/2022 Problem Code: M79.671; Problem Code Type: ICD-10; Not Available Critical access hospital 3 05:54:00 Breast composit ion 913442777 Completed 201601/28/2023 Not Available Critical access hospital 3 05:54:00 Changes in skin texture 989511112 Completed 202207/30/2022 Problem Code: R23.4; Problem Code Type: ICD-10; Not Available Critical access hospital 3 05:54:01 Spasm 23759999 Completed 201603/23/2017 Problem Code: R25.2; Problem Code Type: ICD-10; EVIE RUFUS shaw, [facility] 4 10:33:28 Hyperten sive disorder 15665880 Completed 11/28/19 15 - Comments only - Ana Her MD - [facility] ed, no change in medicati ons Not Available Critical access hospital 3 05:54:03 Arthralg ia of the ankle and/or foot 726467147 Completed 201501/30/2016 Problem Code: M25.571; Problem Code Type: ICD-10; Not Available Critical access hospital 3 05:54:03 Dyspnea 928194507 Completed 201903/19/2020 Problem Code: R06.02; Problem Code Type: ICD-10; Danica Felix colin, [facility] 4 14:39:47 Trigger finger of right hand 16692170159 879734 Completed 201803/19/2020 Problem Code: M65.341; Problem Code Type: ICD-10; Not Available Critical access hospital 3 05:54:06 Cough 75508884 Completed 202108/12/2021 Problem Code: R05.1; Problem Code Type: ICD-10; Not Available Critical access hospital 3 05:54:06 At risk - finding 446546098 Completed 201811/11/2018 Problem Code: Z91.89; Problem Code Type: ICD-10; Not Available Critical access hospital 3 05:54:06 Cough 17660905 Completed 201706/15/2017 Problem Code: R05; Problem Code Type: ICD-10; Not Available Critical access hospital 3 05:54:07 Preopera tive cardiova scular examinat ion Completed 202112/18/2021 Problem Code: Z01.810; Problem Code Type: ICD-10; Not Available Critical access hospital 3 05:54:08 Arterial bruit 71991955 Completed 202109/11/2021 Not Available Critical access hospital 3 05:54:08 Gastroes ophageal reflux disease 869228570 Completed Not Available Critical access hospital 3 05:54:09 Imaging of musculos keletal system abnormal 935024022 Completed 201603/23/2017 Problem Code: R93.7; Problem Code Type: ICD-10; Not Available Critical access hospital 3 05:54:10 Blood glucose outside referenc e range 128126707 Completed 201503/20/2016 Problem Code: R73.09; Problem Code Type: ICD-10; Not Available Critical access hospital 3 05:54:10 Abdomina l aortic aneurysm 666047170 Completed 195912/04/2014 Not Available Critical access hospital 3 05:54:11 Lung field abnormal 316011879 Completed 202109/11/2021 Problem Code: R91.8; Problem Code Type: ICD-10; Not Available Critical access hospital 3 05:54:11 Ingrowin g nail 237831015 Completed 201503/23/2017 Problem Code: L60.0; Problem Code Type: ICD-10; Not Available Critical access hospital 3 05:54:11 Hypokale karyn 06363939 Completed 201504/17/2016 Problem Code: E87.6; Problem Code Type: ICD-10; Not Available Critical access hospital 3 05:54:12 Spasm 53519630 Completed 202201/23/2023 Problem Code: M62.838; Problem Code Type: ICD-10; EVIE shaw [facility] 4 10:33:28 Aneurysm of ascendin g aorta 040224921 Active [address], [place], [address] , [facility] 4 19:24:51 Bicuspid aortic valve 25954545 Active 2023 severe by ECHO 07/[address], [facility] [address] , [facility] 4 19:33:10 Osteopen ia 830451350 Active 2023 EVIE shaw, [facility] 4 10:28:13 Venous stasis 02759896 Active 2023 EVIE shaw, [facility] 4 10:29:14 Chronic kidney disease 588966756 Active 2017 Stage 3bA1v eGFR 42-[address], [place], [address] , [facility] 4 20:49:29 Dyspnea on exertion 66156964 Active 2018 Danica shaw, [facility] 4 14:39:44 Hiatal hernia 35317245 Completed 202108/11/2023 lap repair MD [address], [place], [address] , [facility] 4 20:51:15 Edema of lower extremit y 421700711 Active [address], [place], [address] , [facility] 4 20:55:49 Atrial fibrilla tion 61051010 Active 2016 s/p pulmonoa ry vein isolatio n 05/2018, chronic anticoag ulation with Xarelto MD [address], [place] [address] 4 09:14:08 Obesity 841620168 Active [address], [address] 4 09:26:22 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 MD [address], [address] 4 09:13:49 Swelling of bilatera l lower limbs 294173828 Active [address], [address] 14:35:13 Problem Notes None recorded. Procedures Surgical History Date Name Laterality Status Provider Name and Address Organization Details Recorded Time 10/26/19 cardiac pacemaker procedure completed MD [address], [address] 03/16/2024 16:33:27 10/20/19 transcatheter aortic valve implantation completed MD [address], [address] 03/16/2024 16:32:53 Imaging Results None recorded. Procedure Notes None recorded. Medical Equipment None Reported. Allergies Allergen ID Allergen Name Allergen Category Reaction Reaction Severity Criticality Documentation Date Start Date Code Code System Note Provider Name and Address Organization Details Recorded Time 25770 amlodipin e medicatio n swelling severe high 11/18/2023 46111 RxNorm HIRA Hodge, [facility] 13:47:28 Medications Name Sig Start [...] 1 tab by mouth daily 06/02 completed [facility] [employer] [facility] Not Available Not Available Not Available [...] 1 tab by mouth daily 2013 active [facility] Not Available Not Available Not Available gabapenti n 100 mg capsule Take 1 cap by mouth three times daily 2015 active Not Available Not Available Not Avai lable metoprolo l succinate ER 25 mg tablet,ex tended release 24 hr Take 1 tab by mouth daily 2017 active [facility] Not Available Not Available Not [...] Updated DateTime 4 164.34 cm 29.1 kg/m2 16562.4 8 g 97.7 [degF] 96 % 96 % 104 /min 18 /min 120 mm[Hg] 74 mm[Hg] KRYSTAL SKELTON LPN [facility] 14:18:40 Social History Question Answer Notes LastModified by Organizat ion Details LastModified Time Tobacco Smoking Status Never Smoker KRYSTAL SKELTON LPN [facility], [facility] 08/12/2023 07:44:55 Date Of Most [...] And Wanted Help? (For Example, If You [place] Very Nervous, Lonely, Or Blue; Got Sick [...] 04:00:48 Mother Family history of heart failure [email or web address] Not available 2022 04:00:48 Notes:*Problem: Mother: Dece [...] Details Recorded Time Pneumococcal conjugate PCV20, polysaccharide [id number] conjugate, adjuvant, PF 4 completed MD [address], [address] 08/12/2023 11:52:18 COVID-19, mRNA, LNP-S, PF, vanda-sucrose, 30 mcg/0.3 mL 4 completed MD [address], [address] 08/12/2023 11:52:18 COVID-19, mRNA, LNP-S, PF, vanda-sucrose, 30 mcg/0.3 mL 4 completed MD [address], [address] 03/04/2024 15:04:49 Tdap 1 completed Not Available Critical access hospital 03/13/2023 06:18:37 Tdap 1 completed Not Available Critical access hospital 03/13/2023 06:18:37 zoster live 5 completed Not Available Critical access hospital 03/13/2023 06:18:37 Influenza, high-dose, trivalent, PF 8 completed Not Available [facility] 03/13/2023 06:18:38 Influenza, split virus, trivalent, preservative 6 completed Not Available [facility] 03/13/2023 06:18:38 Pneumococcal Conjugate, unspecified formulation 5 completed Not Available [facility] 03/13/2023 06:18:38 Influenza, split virus, quadrivalent, preservative 7 completed Not Available [facility] 03/13/2023 [...] SNOMED-CT Code Diagnosis ICD10 Code Diagnosis Note [id number] ANA HER MD [address] [place] [address] 03/04/2024 14:02:04 03/04/2024 15:12:46 Active or passive immunization 274374316 Z23 Hypothyroidism 59120018 E03.9 dose lowered during hospital or rehab stay, will repeat TSH in few months. Osteoporotic fracture 46 020628 M80.00XD received first dose of zoledronic acid [...] to next visit. Iron defic iency anemia 73442326 D50.9 Did receive some IV iron, unclear how many doses. No longer taking oral iron. Had seen [facility] about colonoscop y due to diarrhea, but appears that was postponed due to her aortic stenosis/T AVR... will repeat CBC and iron studies in few months, if falling again will need to consider GI workup for blood loss. Chronic ki dney disease 519966322 N18.9 Prediabetes 149823124 R7 3.03 Health Concerns Section Related Observation LastModified by Organization Detai ls LastModified Time None Recorded Concern Status LastModified by Organization Details LastModified Time None Recorded Payers Encounter Date Sequence Insurance Name Policy Number Policy Palacio Covered Member ID Palacio Member ID Guarantor Name 03/04/2024 1 [place] [employer] Digna Olson [id number] Digna Olson 03/04/2024 2 [place] [facility] [id number] Digna Olson [id number] Digna Lemus Whitney Notes Date Note Type Note Provider Name and Address Organization Details Recorded Time 03/04/2024 text/html Pt was admitted to [facility] 12/10-12/16 with fall and humeral [...] TAVR. ANA HER MD [address], [place], [address], [facility]. 03/04/2024 17:49:41 OBGyn Episode No OBEpisode recorded.
--- OUTSIDE RECORDS SUMMARY | 2024-05-25 10:51 | XMS_ITS | Encounter Summary ---
Author Organization [facility] [place] [address] Care Team Providers Care Is Support Analyst Name Role Phone Ana Her MD Primary Care Provider [phone] Encounter Details Date Type Department Care Team (Late st Contact Info) Description 03/09/2022 11:00 PM EST Ancillary Procedure Radiology Library at [facility] [place] [address] Ana Her MD [address] [place] [address] [facility] [address] [place], [place] [id number] Social History Tobacco Use Types Packs/Day Years [...] CT Chest (03/09/2022 10:56 PM EST) Narrative [facility] - 03/09/2022 10:56 PM EST This exam is auto-finalizing. It's purpose is for storage only. Ana Her MD IM FILM LIBRARY ORD ERABLES [place], [place] documented in this encounter Visit Diagnoses Not on filedocumented in this encounter Care Teams Is Support Analyst Relationship Specialty Start Date End Date Ana Her MD [address] [facility] [address] [place] [address] PCP - General 07/29/13 documented as of this encounter
--- OUTSIDE RECORDS SUMMARY | 2024-05-25 10:51 | XMS_ITS | Encounter Summary ---
[place] [address] Care Team Providers Care Acid Retort Operator Name Role Phone Ana Her MD Primary Care Provider [phone] Encounter Details Date Type Department Care Team (Late st Contact Info) Description 12/24/2021 Telephone [place] [address] Chelsie Lauren Social History Tobacco Use Types [...] on filedocumented in this encounter Care Teams Acid Retort Operator Relationship Specialty Start Date End Date Ana Her MD [address] [place] [address] PCP - General 07/29/13 documented as of this encounter
--- OUTSIDE RECORDS SUMMARY | 2024-05-25 10:51 | XMS_ITS | Encounter Summary ---
[place] [address] Care Team Providers Care Filler Mixer Name Role Phone Ana Her MD Primary Care Provider [phone] Encounter Details Date Type Department Care Team (Late st Contact Info) Description 02/26/2022 Orders [place] [address] Alicia Manning RN Social History Tobacco Use [...] on filedocumented in this encounter Care Teams Filler Mixer Relationship Specialty Start Date End Date Ana Her MD [address] [place] [address] PCP - General 07/29/13 documented as of this encounter
--- OUTSIDE RECORDS SUMMARY | 2024-05-25 10:51 | XMS_ITS | Encounter Summary ---
Author Organization [facility] [place] [address] Care Team Providers Care Roof Promenade Tile Setter Name Role Phone Ana Her MD Primary Care Provider [phone] Encounter Details Date Type Department Care Team (Latest Contact Info) Description 04/03/2022 12:00 PM EST TH Visit (TeleHealth) [place] [address] Laura Will MD [facility] [place] [address] Status post repair of paraesophageal diaphragmatic hernia [...] status documented in this encounter Care Teams Roof Promenade Tile Setter Relationship Specialty Start Date End Date Ana Her MD [facility] [address] [place] [address] PCP - General 07/29/13 documented as of this encounter
--- OUTSIDE RECORDS SUMMARY | 2024-05-25 10:51 | XMS_ITS | Encounter Summary ---
Author Organization [facility] [place] [address] Care Team Providers Care Carpenter Name Role Phone Ana Her MD Primary Care Provider [phone] Encounter Details Date Type Department Care Team (Late st Contact Info) Description 01/08/2022 7:42 AM EDT Anesthesia Event [place] [address] Alisa Naqvi MD [facility] [place] [address] Anesthesia Record Procedure Summary Procedure Name Responsible [...] cephalic vein (lateral side of arm), left; ekgc-mwv-jalnfj catheter system; Anatomical Landmarks; 20 gauge; Joslyn [...] Procedure Summary Date: 01/08/22 Room / Location: [facility] OR [address] [place] [address] MAIN OR Anesthesia Start: 741 Anesthesia Stop: 825 Procedure: EGD, UPPER GI ENDOSCOPY (N/A Trunk) Diagnosis: (Hiatal hernia) Surgeons: Laura Will MD Responsible Provider: Alisa Naqvi MD Anesthesia Type: general ASA Status: 3 All Anesthesia Providers: Anesthesiologist: Alisa Naqvi MD Formula Bottler: Nghia Valerio MD Vitals Value Taken Time BP 98/56 01/08/22 0823 Temp Pulse Resp SpO2 99 % 01/08/22826 Pain Level Vitals shown include unvalidated device data. [facility] Level of Consciousness: Conscious but [...] of left breast of female, estrogen receptor uxtlrtpf03/25/2017 ??? Bicuspid aortic valve 06/10/2016 ??? Dyspnea [...] Chen MD at [facility] MAIN OR Social History Tobacco Use ??? [...] mg documented in this encounter Care Teams Carpenter Relationship Specialty Start Date End Date Ana Her MD [facility] [address] [facility] [address] [place] [address] PCP - General 07/29/13 documented as of this encounter
--- OUTSIDE RECORDS SUMMARY | 2024-05-25 10:51 | XMS_ITS | Encounter Summary ---
[place] [address] Care Team Providers Care Funnel Setter Name Role Phone Ana Her MD Primary Care Provider [phone] 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 * Consultation (Routine) - Closed Specialty Diagnoses / Procedures Referred By Christiano hackett Referred To Contact General Surgery Diagnoses Hiatal hernia Ana Her MD [address] [place] [address] [facility] Gen Surgery [address] [place] [id number] Referral ID Status Reason Start Date Expiration Date V isits Requested Visits Authorized [id number] Closed Consult, Test & Treat 09/23/2021 09/23/2022 6 6 Encounter Details Date Type Department Care Team (Late st Contact Info) Description 09/23/2021 Transcribe Orders eDH Incoming Referrals [phone] Ana Her MD [address] [place] [address] Hiatal hernia Social History Tobacco [...] gangrene documented in this encounter Care Teams Funnel Setter Relationship Specialty Start Date End Date Ana Her MD [address] [place] [address] PCP - General 07/29/13 documented as of this encounter
--- OUTSIDE RECORDS SUMMARY | 2024-05-25 10:51 | XMS_ITS | Encounter Summary ---
[place] [address] Care Team Providers Care Bed Laborer Name Role Phone Ana Her MD Primary Care Provider [phone] Encounter Details Date Type Department Care Team (Late st Contact Info) Description 12/17/2021 Telephone [place] [phone] Roma Estrada RN Social History Tobacco Use [...] on filedocumented in this encounter Care Teams Bed Laborer Relationship Specialty Start Date End Date Ana Her MD [address] [place] [address] PCP - General 07/29/13 documented as of this encounter
--- OUTSIDE RECORDS SUMMARY | 2024-05-25 10:51 | XMS_ITS | Encounter Summary ---
Author Organization [facility] [place] [address] Care Team Providers Care Piledriver Carpenter Name Role Phone Ana Her MD Primary Care Provider [phone] Encounter Details Date Type Department Care Team (Latest Contact Info) Description 01/08/2022 6:11 AM EDT - 01/08/2022 9:40 AM EDT Hospital Encounter [place] [phone] Laura Park MD [facility] [place] [address] Discharge Disposition: Home Social History Tobacco Use [...] a nurse in the Thoracic Clinic at [phone]. After hours or on weekends or holidays please call: [phone] and ask to speak to the Thoracic Physician political consultant. Diet: You should follow a clear [...] - 5pm): General Surgery and Bariatric Surgery [phone] Bariatric Surgeons: Drs. Park and John [phone] Elementary Esl Teacher: [phone] Dietitians: [phone] Outside of regular business hours, including weekends and holidays: Ask for General Surgery resident political consultant [phone] Please note, this call will be answered [...] of left breast of female, estrogen receptor rnpapxweR47.512, Z17.0 ??? Anemia D64.9 ??? Aortic valve [...] 6.43) performed by Malika Chen MD at [facility] MAIN OR ??? PRO INTRAOP SENTINEL LYMPH ID W/DYE INJECTION Left 03/30/2017 ?? INTRAOPERATIVE ID (MAPPING) SENTINEL LYMPH NODE,INCLUDES INJECTION (WRVU 2.5) performed by Malika Chen MD at [facility] MAIN OR ??? PRO MASTECTOMY PARTIAL Left 03/30/2017 ?? MASTECTOMY PARTIAL (WRVU 10.13) performed by Malika Chen MD at [facility] MAIN OR ?? Cholecystectomy ?? [...] Park MD - 01/08/2022 7:48 AM EDT [facility] [place] Note Patient Name: Digna Olson : [id number] MR#: [id number] Case Date: 01/08/2022 Surgeon: Surgeon(s) and Role: [...] Info Order Time SPECIMEN TO PATHOLOGY Gastric Mcleod for H Pylori Hiatal hernia Gastric Mcleod for H Pylori excision 01/08/2022 8:15 AM [...] 8:14 AM EDT Upper GI Endoscopy, Diagnostic ([id number]) Yes 01/08/2022 7:40 AM EDT Hiatal hernia [...] MD PATHOLOGY/CYTOLOGY ORDERABLES [facility] [place] [address] * Surgical Pathology Report (01/08/2022 8:14 AM EDT) Final Diagnosis [id number] ? Location: [facility]; [facility]; A The signing pathologist has (i) examined the relevant preparation(s) for the specimen(s) and (ii) rendered or confirmed the diagnosis(es). . ?Surgical Pathology DIAGNOSIS A - Gastric ??Antrum for H Pylori, excision: - ??Antrum-type mucosa with reactive gastropathy. Electronically signed by: ?Umang Raymundo MD Verified: ??01/09/2022 16:36 ??Pathologist Performed at: ??-[facility] Dept. of Pathology, [place], [place] SPECIMEN(S) SUBMITTED A - Gastric [...] MD PATHOLOGY/CYTOLOGY ORDERABLES [facility] [place] [address] * POCT Glucose (01/08/2022 6:33 AM EDT) Glucose, POC 120 65 - 199 mg/dL [facility] Comment: Supplemental ranges: <140 mg/dL before meals <180 mg/dL all other times of the day Blood 01/08/2022 6:33 AM EDT 01/08/2022 6:33 AM EDT Laura Park MD POINT [place] [address] documented in this encounter Visit Diagnoses Not on filedocumented in this encounter Active and Recently Administered Medications Care Teams Piledriver Carpenter Relationship Specialty Start Date End Date Ana Her MD [address] [place] [address] PCP - General 07/29/13 documented as of this encounter
--- OUTSIDE RECORDS SUMMARY | 2024-05-25 10:51 | XMS_ITS | Encounter Summary ---
[place] [address] Care Team Providers Care Customer Associate Name Role Phone Ana Her MD Primary Care Provider [phone] Encounter Details Date Type Department Care Team (Late st Contact Info) Description 02/03/2023 Telephone Hematology [place] [phone] Maryam Barrett Social History Tobacco Use Types [...] on filedocumented in this encounter Care Teams Customer Associate Relationship Specialty Start Date End Date Ana Her MD [address] [place] [address] PCP - General 07/29/13 documented as of this encounter
--- OUTSIDE RECORDS SUMMARY | 2024-05-25 10:51 | XMS_ITS | Clinical Summary ---
Author Organization [facility] [place] [address] Care Team Providers Care Rolling Machine Operator Name Role Phone Ana Her MD Primary Care Provider [phone] Allergies No known active allergies Medications Medication [...] the eliquis and has been managed by [facility]. She has remained in Afib over [...] and ECG with Dr. Ana Her in [place] in January She will discuss ECHO results [...] - TT3 and FT4 nl - My SALT LIFTER colleague called and spoke with covering MD [...] history exists Medical Devices Implanted Type Area Tester Rocket Engine Device Identifier Shelf Expiration Date Model / Serial / Lot Breast Clip-02/26/20 17 Implanted: by Enzo Burkett MD (Quantity not on file) Breast Clip Left: Breast Bard - 0614 05/04/2019 S[employer]OMARK ULTRACOR BREAST TISSUE MARKER ULTRASOUND ENHANCED BLANCA / / [id number] Description:BLANCA Procedures Procedure Name Priority Date/Time Associated [...] Osteopenia of neck of femur, unspecified laterality 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 ? Jeanine Lobato OUTGOING INSPECTOR IMG MAMMO ORD ERABLES * DXA [...] BMD measurements and plots are available in [employer] under the imaging tab. Paper copies will be sent to providers without E-[place] [facility] access. If you have received this report without the data sheet and do not have access to [employer], please contact Radiology Washer Blanket at [phone] Thursday thru Thursday 8am-4pm. Thank you for letting us participate in the care of this patient. ??If you are a health care provider and have any questions regarding this report, please contact the number below. ??For patients who have questions please contact the health child care team lead that requested your imaging first. ? Narrative [...] BMD measurements and plots are available in [employer]under the imaging tab. Paper copies will be sent to providers without E- access.If you have received this report without the data sheet and do not haveaccess to E-, please contact Radiology Washer Blanket at [phone] Thursday thrriday 8am-4pm. Thank you for letting us participate in the care of this patient. If youare a health care provider and have any questions regarding this report,please contact the number below. For patients who have questions please contactthe health child care team lead that requested your imaging first. Ricky Lowry [...] Status decision made by: Patient Care Teams Rolling Machine Operator Relationship Specialty Start Date End Date Ana Her MD [facility] [address] [place] [address] PCP - General 07/29/13
--- OUTSIDE RECORDS SUMMARY | 2024-05-25 10:51 | XMS_ITS | Encounter Summary ---
[place] [address] Care Team Providers Care Rivet Hole Machine Operator Name Role Phone Ana Her MD Primary Care Provider [phone] Encounter Details Date Type Department Care Team (Late st Contact Info) Description 11/01/2021 Telephone [place] [phone] Chelsie Lauren Social History Tobacco Use Types [...] on filedocumented in this encounter Care Teams Rivet Hole Machine Operator Relationship Specialty Start Date End Date Ana Her MD [address] [place] [address] PCP - General 07/29/13 documented as of this encounter
--- OUTSIDE RECORDS SUMMARY | 2024-05-25 10:52 | XMS_ITS | Encounter Summary ---
Author Organization [facility] [place] [address] Care Team Providers Care Software Educator Name Role Phone Ana Her MD Primary Care Provider [phone] Reason for Visit * Reason Comments Follow-up Encounter Details Date Type Department Care Team (Late st Contact Info) Description 05/31/2019 11:45 AM EST Office Visit [place]ology [place] [phone] Ricky Lowry MD Malignant neoplasm of lower-outer [...] with image-guided localization ?Lymph Node Sampling: ??[place] lymph node(s) ?Specimen Laterality: ??Left Tumor ?Histologic [...] not present in specimen Lymph Nodes ?[place] Lymph Nodes: [place] lymph node biopsy performed ?Number of [place] Nodes Examined: ??3 ?Number of Lymph Node(s) [...] Spinal stenosis > A Fib. Cardiology at [facility]. S/P successful cardioversion May [...] positive documented in this encounter Care Teams Software Educator Relationship Specialty Start Date End Date Ana Her MD [facility] [address] [facility] [address] [place] [address] PCP - General 07/29/13 documented as of this encounter
--- OUTSIDE RECORDS SUMMARY | 2024-05-25 10:52 | XMS_ITS | Encounter Summary ---
Author Organization [facility] [place] [address] Care Team Providers Care Film Processor Name Role Phone Ana Her MD Primary Care Provider [phone] Encounter Details Date Type Department Care Team (Latest Contact Info) Description 06/11/2021 8:41 AM EST - 06/11/2021 11:59 PM [facility] Hospital Encounter Mammography/[place] [phone] Jeanine Lobato APRN [facility] [place] [address] Malignant neoplasm of lower-outer quadrant of left [...] Take 40 mg by mouth daily. omega 8-gwc-pnc-fish-turm salty 417 mg-120 mg- 276 mg-600 mg [...] questions please contact the health animal care supervisor that requested your imaging first. ? Jeanine Lobato CERTIFIED ATHLETIC TRAINER IMG MAMMO ORD ERABLES documented in this encounter Visit Diagnoses Diagnosis Malignant neoplasm of lower-outer quadrant of left breast of female, estrogen receptor positive Breast cancer screening by mammogram documented in this encounter Care Teams Film Processor Relationship Specialty Start Date End Date Ana Her MD [address] [place] [address] PCP - General 07/29/13 documented as of this encounter
--- OUTSIDE RECORDS SUMMARY | 2024-05-25 10:52 | XMS_ITS | Encounter Summary ---
[place] [address] Care Team Providers Care Lifeguard Name Role Phone Ana Her MD Primary Care Provider [phone] Reason for Visit * Reason Comments Follow-up Encounter Details Date Type Department Care Team (Late st Contact Info) Description 05/22/2020 11:40 AM EST Office [place] [address] Jeanine Lobato APRN [facility] [place] [address] Encounter for follow-up surveillance of breast cancer; [...] was obtained which revealed IDC which is ER/ID positive, Her2 negative. Alma Delia opted against [...] ??Excision with image-guided localization ?Lymph Node Sampling: ??[place] lymph node(s) ?Specimen Laterality: ??Left Tumor ?Histologic [...] ??DCIS not present in specimen Lymph Nodes ?[place] Lymph Nodes: [place] lymph node biopsy performed ?Number of [place] Nodes Examined: ??3 ?Number of Lymph Node(s) [...] speak almost daily. He lives in [place] and is beginning to show early signs [...] Imaging performed (bilateral mammogram) at [facility] [place] shows no evidence of malignancy, BIRADS [...] available at [employer] ([employer]) and [employer]. All questions were answered to the patient's satisfaction and they state understanding and agreement with today's treatment plan. They are encouraged to follow up sooner if they develop any new or concerning symptoms. Jeanine Lobato APRN Surgical Oncology P [phone] F [phone] [facility] documented in this encounter Plan [...] who have questions please contact the health nanny caregiver that requested your imaging first. ? [...] mammogram documented in this encounter Care Teams Lifeguard Relationship Specialty Start Date End Date Ana Her MD [facility] [address] [place] [address] PCP - General 07/29/13 documented as of this encounter
--- OUTSIDE RECORDS SUMMARY | 2024-05-25 10:52 | XMS_ITS | Encounter Summary ---
[place] [address] Care Team Providers Care Jacker Feeder Name Role Phone Ana Her MD Primary Care Provider [phone] Encounter Details Date Type Department Care Team (Late st Contact Info) Description 04/05/2018 Telephone [place] [phone] Adrianna Jones Social History Tobacco Use Types [...] Padgett. Patient advises she is admitted at [facility] for afib and is pending procedure etc. Patient will call to reschedule once she is discharged home. documented in this encounter Plan of Treatment Not on file documented as of this encounter Visit Diagnoses Not on filedocumented in this encounter Care Teams Jacker Feeder Relationship Specialty Start Date End Date Ana Her MD [address] [place] [address] PCP - General 07/29/13 documented as of this encounter
--- OUTSIDE RECORDS SUMMARY | 2024-05-25 10:52 | XMS_ITS | Encounter Summary ---
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 Cardiology at [facility]. S/P successful cardioversion May [...] on RA Breasts: deferred (examined by surgery SCHEDULER MAINTENANCE today) Neuro: grossly nonfocal. Results: Last DXA [...] Medical Oncology - Breast & GI Cancers [facility] Pager - [phone] No future appointments. documented in this encounter Plan of Treatment Not on file documented as of this encounter Visit Diagnoses Diagnosis Malignant neoplasm of lower-outer quadrant of left breast of female, estrogen receptor positive [facility] current use of aromatase inhibitor Use of aromatase inhibitors documented in this encounter Care Teams Regulatory Scientist Relationship Specialty Start Date End Date Ana Her MD [address] [place] [address] PCP - General 07/29/13 documented as of this encounter
--- OUTSIDE RECORDS SUMMARY | 2024-05-25 10:52 | XMS_ITS | Encounter Summary ---
Author Organization [facility] [place] [address] Care Team Providers Care Discharging Machine Operator Name Role Phone Ana Her MD Primary Care Provider [phone] Reason for Visit * Reason Comments Advice Only BBR * Consultation (Routine) - Closed Specialty Diagnoses / Procedures Referred By Christiano hackett Referred To Contact Plastic Surgery Diagnoses Malignant neoplasm of lower-outer quadrant of left breast of female, estrogen receptor positive Macromastia Jeanine Lobato APRN [facility] [place] [address] [facility] Plastic Surg [address] [place] [address] Referral ID Status Reason Start Date Expiration Date V isits Requested Visits Authorized [id number] Closed Consult, Test & Treat 06/11/2021 06/11/2022 1 1 Encounter Details Date Type Department Care Team (Late st Contact Info) Description 07/09/2021 8:30 AM EST Office [place] [address] Med Hudson MD [facility] [place] [address] Macromastia Social History Tobacco Use [...] physical with your primary care doctor and Science Interpreter clearance Two Weeks prior to Surgery Do [...] Day of Surgery You will need a lyft driver. If you do not have a lyft driver, your surgery will be canceled. DO [...] For questions pertaining to your surgical date [phone] For nursing related questions [phone] On weekends, holidays or after office hours: Call and ask the nut blanker operator to page the Plastic Surgery Resident rewards consultant. documented in this encounter Progress Notes * [...] was normal. This was performed at [facility]. She has completed a [...] None of the time Conservative Therapy Treatments: [facility] PLASTICS CONSERVATIVE THERAPY TREATMENTS 07/09/2021 Physical therapy [...] 6.43) performed by Malika Chen MD at [facility] MAIN OR ??? PRO INTRAOP SENTINEL LYMPH ID W/DYE INJECTION Left 03/30/2017 INTRAOPERATIVE ID (MAPPING) SENTINEL LYMPH NODE,INCLUDES INJECTION (WRVU 2.5) performed by Malika Chen MD at [facility] MAIN OR ??? PRO MASTECTOMY PARTIAL Left 03/30/2017 MASTECTOMY PARTIAL (WRVU 10.13) performed by Malika Chen MD at [facility] MAIN OR Family History Problem [...] revisions for scarring or asymmetry.) Garcia or [place] Pattern Incision: More scarring on breast, but [...] Timeframe: Elective Procedure: Bilateral breast reduction CPT: 50588 Surgical Technique: Garcia, Pedicle Surgical site: Breasts Side: Bilateral Anesthesia: General Follow up: 1 day for drain removal; 7-10 days for HCK PAT: H+P PCP, Cardiac clearance. Need to discontinue blood thinners pre-op? Xarelto documented in this encounter Plan of Treatment Not on file documented as of this encounter Visit Diagnoses Diagnosis Macromastia Hypertrophy of breast documented in this encounter Care Teams Discharging Machine Operator Relationship Specialty Start Date End Date Ana Her MD [address] [place] [address] PCP - General 07/29/13 documented as of this encounter
--- OUTSIDE RECORDS SUMMARY | 2024-05-25 10:52 | XMS_ITS | Encounter Summary ---
Author Organization [facility] [place] [address] Care Team Providers Care Schedule Manager Name Role Phone Ana Her MD Primary Care Provider [phone] Encounter Details Date Type Department Care Team (Late st Contact Info) Description 04/23/2017 [place] [address] Marjorie Ariza Social History Tobacco Use Types [...] Marjorie Ariza - 04/23/2017 2:43 PM EST Machine Sewer Resource Development Director met with pt after consultation with medical [...] on filedocumented in this encounter Care Teams Schedule Manager Relationship Specialty Start Date End Date Ana Her MD [address] [facility] [address] [place] [address] PCP - General 07/29/13 documented as of this encounter
--- OUTSIDE RECORDS SUMMARY | 2024-05-25 10:52 | XMS_ITS | Encounter Summary ---
Author Organization [facility] [place] [address] Care Team Providers Care Ham Curer Name Role Phone Ana Her MD Primary Care Provider [phone] 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 * Diagnostic Test (Routine) [...] Lowry MD [facility] HEMATOLOGY/[place] [address] [facility] Rad Xray [address] [place] [address] [place] [address] Referral ID Status Reason Start Date Expiration Date V isits Requested Visits Authorized [id number] Closed Specialty Service Requested 05/10/2018 05/10/2019 1 [...] Lowry MD [facility] HEMATOLOGY/[place] [address] [facility] Rad Xray [address] [place] [address] Dr Al[place], [place] [address] Referral ID Status Reason Start Date Expiration Date V isits Requested Visits Authorized [id number] Closed Specialty Service Requested 05/10/2018 05/10/2019 1 1 Encounter Details Date Type Department Care Team (Latest Contact Info) Description 11/09/2018 1:03 PM EDT - 11/09/2018 11:59 PM EDT Hospital Encounter XRay at [address] [place] [address] Ricky Lowry MD Malignant neoplasm of lower-outer quadrant of left breast of female, estrogen receptor positive; Osteopenia of neck of femur, unspecified laterality; 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 Paper copies will be sent to providers without [employer] access. If you have received this report without the data sheet and do not have access to [employer], please contact Radiology Senior Data Quality Analyst at [phone] Thursday thru Thursday 8am-4pm. Thank you for letting us participate in the care of this patient. For questions regarding this report, please contact the number below. ? Electronically signed by: JULIET Jackson [facility] ([phone]), at 11/10/2018 10:55 AM Narrative 11/10/2018 10:55 [...] BMD measurements and plots are available in [employer] the imaging tab. Paper copies will be sent to providers without [email or web address] access.If you have received this report without the data sheet and do not haveaccess to [email or web address], please contact Radiology Senior Data Quality Analyst at [phone] Thursday thruFriday 8am-4pm. Thank you for letting us participate in the care of this patient. Forquestions regarding this report, please contact the number below. 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
--- OUTSIDE RECORDS SUMMARY | 2024-05-25 10:52 | XMS_ITS | Encounter Summary ---
Author Organization [facility] [place] [address] Care Team Providers Care Civil Geotechnical Engineer Name Role Phone Ana Her MD Primary Care Provider [phone] Reason for Visit * Reason Comments Follow-up Encounter Details Date Type Department Care Team (Late st Contact Info) Description 10/23/2017 11:00 AM EDT Office Visit [place] [address] Mayra Page APRN [facility] [place] [address] Malignant neoplasm of lower-outer quadrant of left [...] this encounter Progress Notes * Mayra Page, LANDSCAPE TECHNICIAN - 10/23/2017 11:00 AM EDT Digna Olson [...] ??Excision with image-guided localization ?Lymph Node Sampling: ??[place] lymph node(s) ?Specimen Laterality: ??Left Tumor ?Histologic [...] ??DCIS not present in specimen Lymph Nodes ?[place] Lymph Nodes: [place] lymph node biopsy performed ?Number of [place] Nodes Examined: ??3 ?Number of Lymph Node(s) Examined (sentinel and nonsentinel): 3 ?Lymph Node Involvement: None identified Stage (pTNM) ?Pathological Stage: ?? pT1b pN0 PMH: Past Medical History: Diagnosis Date ??? Breast cancer ??? Fracture of tibia 12/2016 left tibial plateau ??? GERD (gastroesophageal reflux disease) ??? H/O non-insulin dependent diabetes mellitus ??? Spinal stenosis Most recent DEXA scan was 10/28/16 at [facility]. There is no history of thromboembolic [...] positive documented in this encounter Care Teams Civil Geotechnical Engineer Relationship Specialty Start Date End Date Ana Her MD [address] [place] [address] PCP - General 07/29/13 documented as of this encounter
--- OUTSIDE RECORDS SUMMARY | 2024-05-25 10:52 | XMS_ITS | Encounter Summary ---
[place] [address] Care Team Providers Care Office Services Coordinator Name Role Phone Ana Her MD Primary Care Provider [phone] Encounter Details Date Type Department Care Team (Late st Contact Info) Description 03/18/2017 Telephone [place] [phone] Bryanna Marsh RN Social History Tobacco Use [...] notes she had a colonoscopy done at [facility] and developed atrial fibrillation; she has been started on blood thinners. She was just discharged from the [facility] hospital, and called us to let [...] give Digna a call her number is [phone]. The below is from Dr. Chen visit [...] filedocumented in this encounter Care Teams Office Services Coordinator Relationship Specialty Start Date End Date Ana Her MD [address] [place] [address] PCP - General 07/29/13 documented as of this encounter
--- OUTSIDE RECORDS SUMMARY | 2024-05-25 10:52 | XMS_ITS | Encounter Summary ---
[place] [address] Care Team Providers Care Assembler Bonding Name Role Phone Ana Her MD Primary Care Provider [phone] Reason for Visit * Reason Comments Follow-up Encounter Details Date Type Department Care Team (Late st Contact Info) Description 11/15/2020 4:00 PM EDT Office Visit Hematology [place] [address] Laura Joaquin PA Malignant neoplasm of lower-outer [...] ??Excision with image-guided localization ?Lymph Node Sampling: ??[place] lymph node(s) ?Specimen Laterality: ??Left Tumor ?Histologic [...] ??DCIS not present in specimen Lymph Nodes ?[place] Lymph Nodes: [place] lymph node biopsy performed ?Number of [place] Nodes Examined: ??3 ?Number of Lymph Node(s) [...] GI [facility] Pager - [phone] documented in this encounter Plan of Treatment Not on file documented as of this encounter Visit Diagnoses Diagnosis Malignant neoplasm of lower-outer quadrant of left breast of female, estrogen receptor positive documented in this encounter Care Teams Assembler Bonding Relationship Specialty Start Date End Date Ana Her MD [address] [place] [address] PCP - General 07/29/13 documented as of this encounter"
--- OUTSIDE RECORDS SUMMARY | 2024-05-25 10:52 | XMS_ITS | Encounter Summary ---
Author Organization [place] [address] Care Team Providers Care Pet Caretaker Name Role Phone Ana Her MD Primary Care Provider [phone] Encounter Details Date Type Department Care Team (Late st Contact Info) Description 03/30/2017 9:30 AM EST - 03/30/2017 11:28 AM EST Surgery [place] [phone] Brant Chen MD [facility] [place] [address] MASTECTOMY PARTIAL (WRVU 10.13) Social History Tobacco [...] shower 24 hours Activity as tolerated Call [phone] with any questions Do not soak incision [...] Alma Delia had a bone scan in [place] which was read as possible metastasis in the left tibia. Of note- she fractured this area recently. She has recovered well. ?? PMH HNT NIDDM not on meds Spinal stenosis Fractured left tibial plateau [place], 2017 GERD ?? FH: Maternal first cousin with breast cancer Brother with rectal cancer Sister with PE ? SH: lives alone. Has good support from sisters who live in [place]. Non smoker. Has a son who lives [...] MD - 03/30/2017 12:27 PM EST [facility] Operative Note Patient Name: Digna Olson : [id number] MR#: [id number] Case Date: 03/30/2017 Surgeon: Surgeon(s) and Role: [...] [place] [address]. Remaining count within the axilla was 1982. [...] MD PATHOLOGY/CYTOLOGY ORDERABLES [facility] [place] [address] * Specimen to Pathology (surgical or derm) (03/30/2017 12:08 PM EST) AP Specimen 03/30/2017 12:0 8 PM EST 03/30/2017 12:08 PM EST Narrative [facility] - 03/30/2017 12:08 PM EST Specimen requisition ordered. ??Separate Pathology report to follow Brant Chen MD PATHOLOGY/CYTOLOGY ORDERABLES Performing Organization Address [facility] Co de Phone Number [facility] [place] [address] * Specimen to Pathology (surgical or derm) (03/30/2017 12:00 PM EST) AP Specimen 03/30/2017 12:0 0 PM EST 03/30/2017 12:00 PM EST Narrative [facility] - 03/30/2017 12:00 PM EST Specimen requisition ordered. ??Separate Pathology report to follow Brant Chen MD PATHOLOGY/CYTOLOGY ORDERABLES Performing Organization Address [facility] [place] [address] * Specimen to Pathology (surgical or derm) (03/30/2017 11:51 AM EST) AP Specimen 03/30/2017 11:5 1 AM EST 03/30/2017 11:51 AM EST Narrative [facility] - 03/30/2017 11:51 AM EST Specimen requisition ordered. ??Separate Pathology report to follow Brant Chen MD PATHOLOGY/CYTOLOGY ORDERABLES Performing Organization Address [facility] Co de Phone Number [facility] [place] [phone] * Surgical Pathology Report (03/30/2017 11:50 AM EST) Final Diagnosis [id number] ? Location: [facility]; [facility]; A The signing pathologist has (i) examined the relevant preparation(s) for the specimen(s) and (ii) rendered or confirmed the diagnosis(es). . ?Surgical Pathology DIAGNOSIS A,B - See Synoptic C - Left breast, Deep/lateral margin re-excision - ?Benign fatty breast tissue. D - Left breast, Superficial margin re-excision - ?Benign fatty breast tissue. See Note Note - Haines ink (indicating additional cranial margin) is also present on this superficial margin re-excision. ---- Specimen Parts: ?? A - Left axilliary sentinel node B - Left breast partial mastectomy Specimen ? Procedure: ??Excision with image-guided localization ? Lymph Node Sampling: ?? [place] lymph node(s) ? Specimen Laterality: ?? Left [...] not present in specimen Lymph Nodes ? [place] Lymph Nodes: ?? [place] lymph node biopsy performed ? Number of [place] Nodes Examined: ?3 ? Number of Lymph [...] DO Verified: ??04/01/2017 ?Pathologist Performed at: ??-[facility] Dept. of Pathology, [place], [place] CLINICAL INFORMATION Specimen Submitted: A - [...] and there are ??no close margins. per [facility] Radiology . Specimen Description: According [...] 0.8 x 0.4 x 0.4 cm. Color: [place] and yellow. Consistency: Soft. Location: Slices III and IV. Nearest Margin: 0.6 cm to the cranial margin. Other Margins: 0.8 cm to the deep margin, 1.0 cm to the superficial margin, ? > 2 cm from all other margins. OTHER Parenchyma: Predominately fatty with scant fibrous tissue. Wire/Clip: Biopsy marker clip identified within slice IV. SECTIONS/PROCESSI NG: (1) provider relations representative slice I, lateral margin; (2) slice III, lesion to cranial margin; (3-5) remainder of slice III; (6) slice IV, lesion to cranial margin (clip); (7-8) remainder of slice IV; (9) provider relations representative slice V; (10) provider relations representative slice X, medial margin. (R10) Ischemic [...] MD PATHOLOGY/CYTOLOGY ORDERABLES [facility] [place] [address] * Mammo Direct Digital Left (03/30/2017 9:15 [...] Routine documented in this encounter Care Teams Pet Caretaker Relationship Specialty Start Date End Date Ana Her MD [address] [place] [address] PCP - General 07/29/13 documented as of this encounter
--- OUTSIDE RECORDS SUMMARY | 2024-05-25 10:52 | XMS_ITS | Encounter Summary ---
Author Organization [facility] [place] [address] Care Team Providers Care Lumber Kiln Operator Name Role Phone Ana Her MD Primary Care Provider [phone] Encounter Details Date Type Department Care Team (Latest Contact Info) Description 03/30/2017 8:30 AM [facility] Hospital [place] [address] Malika Chen MD [facility] [place] [address] Malignant neoplasm of upper-outer quadrant of left [...] mg documented in this encounter Care Teams Lumber Kiln Operator Relationship Specialty Start Date End Date Ana Her MD [address] [place] [address] PCP - General 07/29/13 documented as of this encounter
--- OUTSIDE RECORDS SUMMARY | 2024-05-25 10:52 | XMS_ITS | Encounter Summary ---
Author Organization [facility] [place] [address] Care Team Providers Care Line Up Examiner Name Role Phone Ana Her MD Primary Care Provider [phone] Encounter Details Date Type Department Care Team (Latest Contact Info) Description 03/30/2017 8:30 AM [facility] Hospital [place] [address] Malika Chen MD [facility] [address] Malignant neoplasm of upper-outer quadrant of left [...] positive documented in this encounter Care Teams Line Up Examiner Relationship Specialty Start Date End Date Ana Her MD [address] [place] [address] PCP - General 07/29/13 documented as of this encounter
--- OUTSIDE RECORDS SUMMARY | 2024-05-25 10:52 | XMS_ITS | Encounter Summary ---
[place] [address] Care Team Providers Care Athletic Scout Name Role Phone Ana Her MD Primary Care Provider [phone] Encounter Details Date Type Department Care Team (Late st Contact Info) Description 05/10/2018 2:15 PM EST Office [place] [address] Hiral Padgett, WENDY History of breast cancer [...] with image-guided localization ?Lymph Node Sampling: ?? [place] lymph node(s) ?Specimen Laterality: ?? Left Tumor [...] ?DCIS not present in specimen Lymph Nodes ?[place] Lymph Nodes: ?? [place] lymph node biopsy performed ?Number of [place] Nodes Examined: ?3 ?Number of Lymph Node(s) [...] mammogram today is cat 2. Leaving for [place] later today for a cardiac ablation/a fib at [facility]. Objective: Physical Exam Constitutional: She [...] breast documented in this encounter Care Teams Athletic Scout Relationship Specialty Start Date End Date Ana Her MD [address] [place] [address] PCP - General 07/29/13 documented as of this encounter
--- OUTSIDE RECORDS SUMMARY | 2024-05-25 10:52 | XMS_ITS | Encounter Summary ---
Author Organization [facility] [place] [address] Care Team Providers Care Business Information Analyst Name Role Phone Ana Her MD Primary Care Provider [phone] Encounter Details Date Type Department Care Team (Late st Contact Info) Description 05/10/2018 1:10 PM EST - 05/10/2018 11:59 PM EST Hospital Encounter Mammography/[place] [address] Hiral Padgett, WENDY Encounter for screening mammogram [...] cancer documented in this encounter Care Teams Business Information Analyst Relationship Specialty Start Date End Date Ana Her MD [address] [place] [address] PCP - General 07/29/13 documented as of this encounter
--- OUTSIDE RECORDS SUMMARY | 2024-05-25 10:52 | XMS_ITS | Encounter Summary ---
[place] [address] Care Team Providers Care Scabbler Name Role Phone Ana Her MD Primary Care Provider [phone] Encounter Details Date Type Department Care Team (Late st Contact Info) Description 06/12/2021 Telephone [place] [address] Chelsie Lauren Social History Tobacco Use Types [...] on filedocumented in this encounter Care Teams Scabbler Relationship Specialty Start Date End Date Ana Her MD [address] [place] [address] PCP - General 07/29/13 documented as of this encounter
--- OUTSIDE RECORDS SUMMARY | 2024-05-25 10:52 | XMS_ITS | Encounter Summary ---
Author Organization [place] [address] Care Team Providers Care Anaesthetic Technician Name Role Phone Ana Her MD Primary Care Provider [phone] Encounter Details Date Type Department Care Team (Latest Contact Info) Description 03/30/2017 8:30 AM [facility] Hospital En[place] [address] Malika Chen MD [facility] [place] [address] Malignant neoplasm of upper-outer quadrant of left [...] documented in this encounter Results * Mammo [place] Node Injection (03/30/2017 9:01 AM EST) Anatomical [...] mCi documented in this encounter Care Teams Anaesthetic Technician Relationship Specialty Start Date End Date Ana Her MD [address] [place] [address] PCP - General 07/29/13 documented as of this encounter
--- OUTSIDE RECORDS SUMMARY | 2024-05-25 10:52 | XMS_ITS | Encounter Summary ---
Author Organization [facility] [place] [address] Care Team Providers Care Etcher Enameling Name Role Phone Ana Her MD Primary Care Provider [phone] Encounter Details Date Type Department Care Team (Latest Contact Info) Description 05/22/2020 10:46 AM EST - 05/22/2020 11:59 PM [facility] Hospital Encounter Mammography/[place] [address] Jeanine Lobato APRN [facility] [place] [address] Malignant neoplasm of lower-outer quadrant of left [...] mammogram documented in this encounter Care Teams Etcher Enameling Relationship Specialty Start Date End Date Ana Her MD [facility] [address] [facility] [facility] [address] [place] [address] PCP - General 07/29/13 documented as of this encounter
--- OUTSIDE RECORDS SUMMARY | 2024-05-25 10:52 | XMS_ITS | Encounter Summary ---
Author Organization [facility] [place] [address] Care Team Providers Care Manufacturing Teacher Name Role Phone Ana Her MD Primary Care Provider [phone] Reason for Visit * Reason Comments Follow Up Surgery Encounter Details Date Type Department Care Team (Late st Contact Info) Description 07/13/2017 1:30 PM EDT Office [place] [address] Hiral Padgett, WENDY History of breast cancer [...] with image-guided localization ?Lymph Node Sampling: ?? [place] lymph node(s) ?Specimen Laterality: ?? Left Tumor [...] ?DCIS not present in specimen Lymph Nodes ?[place] Lymph Nodes: ?? [place] lymph node biopsy performed ?Number of [place] Nodes Examined: ?3 ?Number of Lymph Node(s) [...] breast documented in this encounter Care Teams Manufacturing Teacher Relationship Specialty Start Date End Date Ana Her MD [facility] [address] [place] [address] PCP - General 07/29/13 documented as of this encounter
--- OUTSIDE RECORDS SUMMARY | 2024-05-25 10:52 | XMS_ITS | Encounter Summary ---
[place] [address] Care Team Providers Care Coloring Room Worker Name Role Phone Ana Her MD Primary Care Provider [phone] Encounter Details Date Type Department Care Team (Late st Contact Info) Description 06/12/2021 Telephone [place] [address] Chelsie Lauren Social History Tobacco Use Types [...] on filedocumented in this encounter Care Teams Coloring Room Worker Relationship Specialty Start Date End Date Ana Her MD [address] [place] [address] PCP - General 07/29/13 documented as of this encounter
--- OUTSIDE RECORDS SUMMARY | 2024-05-25 10:52 | XMS_ITS | Encounter Summary ---
Author Organization [facility] [place] [address] Care Team Providers Care Community Health Nurse Staff Name Role Phone Ana Her MD Primary Care Provider [phone] Encounter Details Date Type Department Care Team (Late st Contact Info) Description 03/30/2017 Notes [place] [address] January Ward MSW Social History Tobacco Use [...] was recently diagnosed with invasive mucinous carcinoma. [facility] attempted to meet with pt in Same Day surgery this morning but she was still in radiology. I spoke with her ex-, Keith, who states she will be staying with him tondenise. Their granddaughters are traveling from [place] and plan to accompany pt to see her media reporter at [facility] tomorrow. Pt has been followed by this physician for her cardiac problems. [facility] will continue to provide support and resources to pt. documented in this encounter Plan of Treatment Not on file documented as of this encounter Visit Diagnoses Not on filedocumented in this encounter Care Teams Community Health Nurse Staff Relationship Specialty Start Date End Date Ana Her MD [address] [facility] [address] [place] [address] PCP - General 07/29/13 documented as of this encounter
--- OUTSIDE RECORDS SUMMARY | 2024-05-25 10:52 | XMS_ITS | Encounter Summary ---
[place] [address] Care Team Providers Care Medical Billing Specialist Name Role Phone Ana Her MD Primary Care Provider [phone] Encounter Details Date Type Department Care Team (Late st Contact Info) Description 05/19/2017 Telephone Hematology [place] [phone] Sandy Chapman Social History Tobacco Use Types [...] filedocumented in this encounter Care Teams Medical Billing Specialist Relationship Specialty Start Date End Date Ana Her MD [address] [place] [address] PCP - General 07/29/13 documented as of this encounter
--- OUTSIDE RECORDS SUMMARY | 2024-05-25 10:52 | XMS_ITS | Encounter Summary ---
[place] [address] Care Team Providers Care Lead Performance Support Analyst Name Role Phone Ana Her MD Primary Care Provider [phone] 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 * Consultation (Routine) - Closed Specialty Diagnoses / Procedures Referred By Christiano hackett Referred To Contact Plastic Surgery Diagnoses Malignant neoplasm of lower-outer quadrant of left breast of female, estrogen receptor positive Macromastia Jeanine Lobato APRN [facility] [place] [address] [facility] Plastic [place]urg [address] [address] Referral ID Status Reason Start Date Expiration Date V isits Requested Visits Authorized [id number] Closed Consult, Test & Treat 06/11/2021 06/11/2022 1 1 Encounter Details Date Type Department Care Team (Late st Contact Info) Description 06/11/2021 10:00 AM EST Office Visit [place] [address] Jeanine Lobato APRN [facility] [place] [address] Encounter for follow-up surveillance of [...] as of this encounter Progress Notes * Jaenine Lobato, PEARL STRINGER - 06/11/2021 10:00 AM EST Images from [...] Family history of ovarian cancer No Ashkenazi Worship heritage No Known genetic mutation Not tested [...] to speak almost daily. He lives in [place] and is beginning to show early signs [...] situation. Results: Imaging performed (bilateral mammogram) at [facility] today shows no evidence of [...] by mammogram - Mammo Screening Cad and Orbe Bilateral; June 2022 4. Macromastia - Referral [...] free apps for your cell phone from [employer] ([employer]y Living) and Context app ([employer]). All questions were answered to the patient's satisfaction and they state understanding and agreement with today's treatment plan. They are encouraged to follow up sooner if they develop any new or concerning symptoms. Jeanine Lobato APRN Surgical Oncology P [phone] F [phone] [facility] documented in this encounter Plan of [...] breast documented in this encounter Care Teams Lead Performance Support Analyst Relationship Specialty Start Date End Date Ana Her MD [address] [place] [address] PCP - General 07/29/13 documented as of this encounter
--- OUTSIDE RECORDS SUMMARY | 2024-05-25 10:52 | XMS_ITS | Encounter Summary ---
[place] [address] Care Team Providers Care Telecommunicator Supervisor Name Role Phone Ana Her MD Primary Care Provider [phone] Reason for Visit * Reason Comments Schedule Office Case Encounter Details Date Type Department Care Team (Late st Contact Info) Description 04/23/2017 2:00 PM EST Office Visit Hematology [place] [id number] Ricky Lowry MD Malignant neoplasm of lower-outer [...] ??Excision with image-guided localization ?Lymph Node Sampling: ??[place] lymph node(s) ?Specimen Laterality: ??Left Tumor ?Histologic [...] ??DCIS not present in specimen Lymph Nodes ?[place] Lymph Nodes: [place] lymph node biopsy performed ?Number of [place] Nodes Examined: ??3 ?Number of Lymph Node(s) [...] DEXA scan was in this year at [facility]. There is no history of thromboembolic [...] positive documented in this encounter Care Teams Telecommunicator Supervisor Relationship Specialty Start Date End Date Ana Her MD [address] [place] [address] PCP - General 07/29/13 documented as of this encounter
--- OUTSIDE RECORDS SUMMARY | 2024-05-25 10:52 | XMS_ITS | Encounter Summary ---
Author Organization [facility] [place] [address] Care Team Providers Care Garment Sorter Name Role Phone Ana Her MD Primary Care Provider [phone] Encounter Details Date Type Department Care Team (Late st Contact Info) Description 05/31/2019 1:00 PM EST Office [place] [address] Jeanine Lobato JUNIOR MECHANICAL ENGINEER [facility] [place] [address] Encounter for follow-up surveillance of breast cancer; [...] herex- speak almost daily. He lives in [place]. She enjoys reading and cooking. She does [...] symptoms. Jeanine Lobato APRN Surgical Oncology P [phone] F [phone] [facility] documented in this encounter Plan [...] mammogram documented in this encounter Care Teams Garment Sorter Relationship Specialty Start Date End Date Ana Her MD [facility] [address] [facility] [address] [place] [address] PCP - General 07/29/13 documented as of this encounter
--- OUTSIDE RECORDS SUMMARY | 2024-05-25 10:52 | XMS_ITS | Encounter Summary ---
[place] [address] Care Team Providers Care Principal Accounts Clerk Name Role Phone Ana Her MD Primary Care Provider [phone] Encounter Details Date Type Department Care Team (Late st Contact Info) Description 03/30/2017 11:19 AM EST Anesthesia [place] [address] Bridgette Mclaughlin MD Collins, Sarah J, GENERAL PRODUCTION WORKER [address] [place] [address] Anesthesia Record Procedure Summary Procedure Name Responsible [...] 0815; median cubital vein (antecubital fossa), right; snsf-[id number]-[id number] catheter system; 20 gauge, 1 in length; 0; 03/30/17; 1338 03/30/17 0815 by Anna Coy RN 03/30/17 1338 by Suzi Burktet RN Supraglottic LMA Type: iGel; LMA Size: [...] Bridgette Mclaughlin - 03/30/2017 2:13 PM EST [facility] Department of Anesthesiology Post-procedure Note Patient: Digna Olson Procedure Summary Date Anesthesia Start Anesthesia Stop Room / Location 03/30/17 1119 1239 [facility] OR 24 / MH MAIN OR [...] All Anesthesia Providers: Anesthesiologist: Bridgette Mclaughlin MD GENERAL PRODUCTION WORKER: Laura Koo CRNA Most Recent Vitals: 03/30/17 [...] risks discussed with patient. Plan discussed with GENERAL PRODUCTION WORKER. [facility] Staff Note documented in this encounter Plan [...] r documented in this encounter Care Teams Principal Accounts Clerk Relationship Specialty Start Date End Date Ana Her MD [facility] [address] [place] [address] PCP - General 07/29/13 documented as of this encounter
--- OUTSIDE RECORDS SUMMARY | 2024-05-25 10:52 | XMS_ITS | Encounter Summary ---
[place] [address] Care Team Providers Care Paraffin Plant Sweater Operator Name Role Phone Ana Her MD Primary Care Provider [phone] Encounter Details Date Type Department Care Team (Latest Contact Info) Description 03/30/2017 7:27 AM EST - 03/30/2017 1:37 PM EST Hospital Encounter [place] [phone] Brant Chen MD [facility] [place] [address] Discharge Disposition: Home Social History Tobacco Use [...] shower 24 hours Activity as tolerated Call [phone] with any questions Do not soak incision [...] Alma Delia had a bone scan in [place] which was read as possible metastasis in the left tibia. Of note- she fractured this area recently. She has recovered well. ?? PMH HNT NIDDM not on meds Spinal stenosis Fractured left tibial plateau December, GERD ?? FH: Maternal first cousin with breast cancer Brother with rectal cancer Sister with PE ? SH: lives alone. Has good support from sisters who live in [place]. Non smoker. Has a son who lives [...] MD - 03/30/2017 12:[address] [facility] Operative Note Patient Name: Digna Olson : [id number] MR#: [id number] Case Date: 03/30/2017 Surgeon: Surgeon(s) and Role: [...] [place] [address]. Remaining count within the axilla was 1982. [...] MD PATHOLOGY/CYTOLOGY ORDERABLES [facility] [place] [address] * Specimen to Pathology (surgical or derm) (03/30/2017 12:08 PM EST) AP Specimen 03/30/2017 12:0 8 PM EST 03/30/2017 12:08 PM EST Narrative [facility] - 03/30/2017 12:08 PM EST Specimen requisition ordered. ??Separate Pathology report to follow Brant Chen MD PATHOLOGY/CYTOLOGY ORDERABLES Performing Organization Address [facility] [place] [address] * Specimen to Pathology (surgical or derm) (03/30/2017 12:00 PM EST) AP Specimen 03/30/2017 12:0 0 PM EST 03/30/2017 12:00 PM EST Narrative [facility] - 03/30/2017 12:00 PM EST Specimen requisition ordered. ??Separate Pathology report to follow Brant Chen MD PATHOLOGY/CYTOLOGY ORDERABLES Performing Organization Address [facility] Co de Phone Number [place] [phone] * Specimen to Pathology (surgical or derm) (03/30/2017 11:51 AM EST) AP Specimen 03/30/2017 11:5 1 AM EST 03/30/2017 11:51 AM EST Narrative [facility] - 03/30/2017 11:51 AM EST Specimen requisition ordered. ??Separate Pathology report to follow Brant Chen MD PATHOLOGY/CYTOLOGY ORDERABLES Performing Organization Address [facility] [place] [address] * Surgical Pathology Report (03/30/2017 11:50 AM EST) Final Diagnosis [id number] ? Location: [facility] [place]; A The signing pathologist has (i) examined the relevant preparation(s) for the specimen(s) and (ii) rendered or confirmed the diagnosis(es). . ?Surgical Pathology DIAGNOSIS A,B - See Synoptic C - Left breast, Deep/lateral margin re-excision - ?Benign fatty breast tissue. D - Left breast, Superficial margin re-excision - ?Benign fatty breast tissue. See Note Note - [place] ink (indicating additional cranial margin) is also present on this superficial margin re-excision. ---- Specimen Parts: ?? A - Left axilliary sentinel node B - Left breast partial mastectomy Specimen ? Procedure: ??Excision with image-guided localization ? Lymph Node Sampling: ?? [place] lymph node(s) ? Specimen Laterality: ?? Left [...] not present in specimen Lymph Nodes ? [place] Lymph Nodes: ?? [place] lymph node biopsy performed ? Number of [place] Nodes Examined: ?3 ? Number of Lymph [...] DO Verified: ??04/01/2017 ?Pathologist Performed at: ??-[facility] Dept. of Pathology, [place], [place] CLINICAL INFORMATION Specimen Submitted: A - [...] margins. per [facility] Radiology . Specimen Description: According to the established protocol the ink designations are red (medial), yellow (lateral), orange (cranial), green (caudal), black (deep) and blue (superficial). Tissue Sections: The specimen is serially sectioned perpendicular to the long axis from lateral to medial into X slices, each averaging 0.45 cm in thickness. LESION Description: Biopsy site. Size: 0.8 x 0.4 x 0.4 cm. Color: [place] and yellow. Consistency: Soft. Location: Slices III and IV. Nearest Margin: 0.6 cm to the cranial margin. Other Margins: 0.8 cm to the deep margin, 1.0 cm to the superficial margin, ? > 2 cm from all other margins. OTHER Parenchyma: Predominately fatty with scant fibrous tissue. Wire/Clip: Biopsy marker clip identified within slice IV. SECTIONS/PROCESSI NG: (1) telephone sales representative slice I, lateral margin; (2) slice III, lesion to cranial margin; (3-5) remainder of slice III; (6) slice IV, lesion to cranial margin (clip); (7-8) remainder of slice IV; (9) telephone sales representative slice V; (10) telephone sales representative slice X, medial margin. (R10) [...] MD PATHOLOGY/CYTOLOGY ORDERABLES [facility] [place] [address] * Mammo Direct Digital Left (03/30/2017 9:15 [...] Routine documented in this encounter Care Teams Paraffin Plant Sweater Operator Relationship Specialty Start Date End Date Ana Her MD [address] [place] [address] PCP - General 07/29/13 documented as of this encounter
--- OUTSIDE RECORDS SUMMARY | 2024-05-25 10:52 | XMS_ITS | Encounter Summary ---
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 Rad Xray [address] [place] [address] [place] [address] Referral ID Status Reason Start Date Expiration Date V isits Requested Visits Authorized [id number] Closed Specialty Service Requested 05/22/2020 11/19/2021 1 [...] and/or Whole Body (Generic) Ricky Lowry MD [facility] HEMATOLOGY/[place] [address] [facility] Rad Xray [address] [place] [address] Dr [place]e [phone] Referral ID Status Reason Start Date Expiration Date V isits Requested Visits Authorized [id number] Closed Specialty Service Requested 05/22/2020 11/19/2021 1 1 Encounter Details Date Type Department Care Team (Latest Contact Info) Description 11/15/2020 2:25 PM EDT - 11/15/2020 11:59 PM EDT Hospital Encounter XRay at [address] [place] [address] Ricky Lowry MD Malignant neoplasm of lower-outer quadrant of left breast of female, estrogen receptor positive; Osteopenia of neck of femur, unspecified laterality; 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 omega 0-wek-pkn-fish-turm salty 417 mg-120 mg- 276 mg-600 mg [...] of neck of femur, unspecified laterality terminal block assembler current use of aromatase inhibitor documented in [...] BMD measurements and plots are available in [employer] under the imaging tab. Paper copies will be sent to providers without E- access. If you have received this report without the data sheet and do not have access to [employer], please contact Radiology Roofing Contractor at [phone] Thursday thru Thursday 8am-4pm. Thank you for letting us participate in the care of this patient. ??If you are a health care provider and have any questions regarding this report, please contact the number below. ??For patients who have questions please contact the health day care worker that requested your imaging [...] BMD measurements and plots are available in [employer] the imaging tab. Paper copies will be sent to providers without - access.If you have received this report without the data sheet and do not haveaccess to [facility], please contact Radiology Roofing Contractor at [phone] Thursday thrrid 8am-4pm. Thank you for letting us participate in the care of this patient. If youare a health care provider and have any questions regarding this report,please contact the number below. For patients who have questions please contactthe health day care worker that requested your imaging first. 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
--- OUTSIDE RECORDS SUMMARY | 2024-05-25 10:52 | XMS_ITS | Encounter Summary ---
Author Organization [facility] Address [facility] [place] [address] Care Team Providers Care Block Piler Name Role Phone Ana Her MD Primary Care Provider [phone] Encounter Details Date Type Department Care Team (Late st Contact Info) Description 09/03/2021 Ancillary Procedure Radiology Library at [facility] [place] [address] Laura Will MD [facility] [place] [address] Social History Tobacco Use Types Packs/Day Years [...] Chest (09/03/2021 12:00 AM EDT) Narrative [facility] - 11/28/2021 1:22 PM EDT This exam is auto-finalizing. It's purpose is for storage only. Laura Will MD IMG FILM LIBRARY OR DERABLES Performing Organization Address City/State/[facility] Co de Phone Number [place], [place] documented in this encounter Visit Diagnoses Not on filedocumented in this encounter Care Teams Block Piler Relationship Specialty Start Date End Date Ana Her MD [address] [facility] 1 [place] [address] PCP - General 07/29/13 documented as of this encounter
--- OUTSIDE RECORDS SUMMARY | 2024-05-25 10:52 | XMS_ITS | Encounter Summary ---
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 Procedures DXA Central Spine, Hip, and/or Whole Body (Generic) Ricky Lowry MD [facility] DR HEMATOLOGY/[place] [address] [facility] Rad Xray [address] [place] [address] [place] [address] Referral ID Status Reason Start Date Expiration Date V isits Requested Visits Authorized [id number] Closed Specialty Service Requested 05/22/2020 11/19/2021 1 1 Encounter Details Date Type Department Care Team (Late st Contact Info) Description 05/22/2020 1:15 PM EST Office Visit Hematology and Oncology at [facility] [place] [address] Ricky Lowry MD Malignant neoplasm of lower-outer quadrant of left breast of female, estrogen receptor positive; Osteopenia of neck of femur, unspecified laterality; USP current use of aromatase inhibitor Social History [...] ??Excision with image-guided localization ?Lymph Node Sampling: ??[place] lymph node(s) ?Specimen Laterality: ??Left Tumor ?Histologic [...] ??DCIS not present in specimen Lymph Nodes ?[place] Lymph Nodes: [place] lymph node biopsy performed ?Number of [place] Nodes Examined: ??3 ?Number of Lymph Node(s) [...] Fib. Cardiology at [facility]. S/P successful cardioversion May [...] BMD measurements and plots are available in [employer] under the imaging tab. Paper copies will be sent to providers without [employer] access. If you have received this report without the data sheet and do not have access to [employer], please contact Radiology [facility] at [phone] Thursday thru Thursday 8am-4pm. Thank you for letting us participate in the care of this patient. ??If you are a health care provider and have any questions regarding this report, please contact the number below. ??For patients who have questions please contact the health childcare director that requested your imaging first. ? Electronically signed by: Nat Epperson MD, [facility] ([phone]), at 11/19/2020 1:09 PM Narrative 11/19/2020 1:09 [...] BMD measurements and plots are available in [employer] the imaging tab. Paper copies will be sent to providers without [employer] access.If you have received this report without the data sheet and do not haveaccess to [employer], please contact Radiology Epoxy Specialist at [phone] Thursday thruFriday 8am-4pm. Thank you for letting us participate in the care of this patient. If youare a health care provider and have any questions regarding this report,please contact the number below. For patients who have questions please contactthe health childcare director that requested your imaging first. Ricky Lowry MD IMG DEXA ORDERABLES documented in this encounter Visit Diagnoses Diagnosis Malignant neoplasm of lower-outer quadrant of left breast of female, estrogen receptor positive Osteopenia of neck of femur, unspecified laterality USP current use of aromatase inhibitor Use of aromatase inhibitors Malignant neoplasm of lower-outer quadrant of left breast of female, estrogen receptor positive Osteopenia of neck of femur, unspecified laterality USP current use of aromatase inhibitor Use of aromatase inhibitors documented in this encounter Care Teams Real Estate Officer Relationship Specialty Start Date End Date Ana Her MD [address] [place] [address] PCP - General 07/29/13 documented as of this encounter
--- OUTSIDE RECORDS SUMMARY | 2024-05-25 10:52 | XMS_ITS | Encounter Summary ---
Author Organization [place] [address] Care Team Providers Care Facilities Management Executive Name Role Phone Ana Her MD Primary Care Provider [phone] Encounter Details Date Type Department Care Team (Late st Contact Info) Description 10/23/2017 9:43 AM EDT - 10/23/2017 11:59 PM EDT Hospital En[place] [phone] Hiral Padgett, WENDY History of breast cancer [...] breast documented in this encounter Care Teams Facilities Management Executive Relationship Specialty Start Date End Date Ana Her MD [address] [place] [address] PCP - General 07/29/13 documented as of this encounter
--- OUTSIDE RECORDS SUMMARY | 2024-05-25 10:52 | XMS_ITS | Encounter Summary ---
Author Organization [facility]ly [facility], Later [facility] Address [facility] [place] [address] Care Team Providers Care Housekeeper/Laundry Assistant Name Role Phone Ana Her MD Primary Care Provider [phone] Reason for Visit * Reason Comments Radiation Consult * Consultation (Routine) - Closed Specialty Diagnoses / Procedures Referred By Christiano hackett Referred To Contact Radiation Oncology Diagnoses Breast cancer Malika Chen MD [facility] [place] [address] Stj Rad Onc Office [address] [place] [phone] Referral ID Status Reason Start Date Expiration Date Visits Re quested Visits Authorized [id number] Closed 03/17/2017 03/17/2018 1 1 Encounter Details Date Type Department Care Team (Late st Contact Info) Description 04/13/2017 10:00 AM EST Office Visit Radiation Oncology at [address] [address] Faye Velez MD [facility] [place] [address] Malignant neoplasm of left female breast, unspecified [...] cm from nipple. Path: Invasive mucinous ca, ER+IA+, Her2 FISH neg. 03/03/[address] [...] she is being evaluated for [place] [facility] 04[place]15[place]17; has been wearing a ziopatch [...] performed by Malika Chen MD at [facility] MAIN OR ??? PRO INTRAOP SENTINEL LYMPH ID W/DYE INJECTION Left 03/30/2017 INTRAOPERATIVE ID (MAPPING) SENTINEL LYMPH NODE,INCLUDES INJECTION (WRVU 2.5) performed by Malika Chen MD at [facility] MAIN OR ??? PRO MASTECTOMY, PARTIAL Left 03/30/2017 MASTECTOMY PARTIAL (WRVU 10.13) performed by Malika Chen MD at [facility] MAIN OR Your Medications These [...] A: Breast ca, L, mucinous, gr 2, ER+IA+, Her2 neg, s/p lumpectomy & SNB, pT1b [...] breast; cough; shortness of breath; tiredness. Late/long chain quiller tender side effects to breast discussed include: Treated [...] breast documented in this encounter Care Teams Housekeeper/Laundry Assistant Relationship Specialty Start Date End Date Ana Her MD [address] [place] [address] PCP - General 07/29/13 documented as of this encounter
--- OUTSIDE RECORDS SUMMARY | 2024-05-25 10:52 | XMS_ITS | Encounter Summary ---
[place] [address] Care Team Providers Care Proofing Machine Operator Name Role Phone Ana Her MD Primary Care Provider [phone] Reason for Visit * Reason Comments Follow-up Encounter Details Date Type Department Care Team (Late st Contact Info) Description 11/29/2019 2:45 PM EDT Office Visit Hematology [place] [phone] Ricky Lowry MD Malignant neoplasm of lower-outer [...] ??Excision with image-guided localization ?Lymph Node Sampling: ??Lambert lymph node(s) ?Specimen Laterality: ??Left Tumor ?Histologic [...] ??DCIS not present in specimen Lymph Nodes ?Lambert Lymph Nodes: Lambert lymph node biopsy performed ?Number of Lambert Nodes Examined: ??3 ?Number of Lymph Node(s) [...] Spinal stenosis > A Fib. Cardiology at [facility]. S/P successful cardioversion May 2018. [...] positive documented in this encounter Care Teams Proofing Machine Operator Relationship Specialty Start Date End Date Ana Her MD [address] [place] [address] PCP - General 07/29/13 documented as of this encounter
--- OUTSIDE RECORDS SUMMARY | 2024-05-25 10:52 | XMS_ITS | Encounter Summary ---
[place] [address] Care Team Providers Care Commodity Broker Name Role Phone Ana Her MD Primary Care Provider Encounter Details Date Type Department Care Team (Late st Contact Info) Description 04/09/2017 Abstract Radiation Oncology at [address] [phone] Maria A Antonio, RN Social History Tobacco [...] on filedocumented in this encounter Care Teams Commodity Broker Relationship Specialty Start Date End Date Ana Her MD [address] [place] [address] PCP - General 07/29/13 documented as of this encounter
--- OUTSIDE RECORDS SUMMARY | 2024-05-25 10:52 | XMS_ITS | Encounter Summary ---
[place] [address] Care Team Providers Care Director Fraud Name Role Phone Ana Her MD Primary Care Provider [phone] 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 * Diagnostic Test (Routine) [...] [facility] DR HEMATOLOGY/[place] [address] [facility] Rad Xray [address] [place] [address] [place] [address] Referral ID Status Reason Start Date Expiration Date V isits Requested Visits Authorized [id number] Closed Specialty Service Requested 05/10/2018 05/10/2019 1 1 Reason for Visit * Reason Comments Follow-up Encounter Details Date Type Department Care Team (Late st Contact Info) Description 05/10/2018 2:45 PM EST Office Visit Hematology and Oncology at [facility] [place] [address] Ricky Lowry MD Malignant neoplasm [...] ??Excision with image-guided localization ?Lymph Node Sampling: ??[place] lymph node(s) ?Specimen Laterality: ??Left Tumor ?Histologic [...] ??DCIS not present in specimen Lymph Nodes ?[place] Lymph Nodes: [place] lymph node biopsy performed ?Number of [place] Nodes Examined: ??3 ?Number of Lymph Node(s) [...] recent DEXA scan was last year at [facility]. There is no history of thromboembolic [...] week (at [facility] No new problems with VELEZ, diplopia, cough, [...] chemotherapy. TACHO. Renewal of anastrazole sent. Given [facility] brochure to share with cousins. All [...] BMD measurements and plots are available in [employer] under the imaging tab. Paper copies will be sent to providers without [employer] access. If you have received this report without the data sheet and do not have access to [employer], please contact Radiology C Application Developer at [phone] Thursday thru Thursday 8am-4pm. Thank you for [...] BMD measurements and plots are available in [employer] the imaging tab. Paper copies will be sent to providers without [employer] access.If you have received this report without the data sheet and do not haveaccess to [employer], please contact Radiology C Application Developer at [phone] Thursday thruFriday 8am-4pm. Thank you for letting us participate in the care of this patient. Forquestions regarding this report, please contact the number below. Electronically signed by: Khushi [facility] ([phone]),at 11/10/2018 10:55 AM Ricky Lowry MD IMG [...] documented in this encounter Care Teams Director Fraud Relationship Specialty Start Date End Date Ana Her MD [address] [place] [address] PCP - General 07/29/13 documented as of this encounter
--- OUTSIDE RECORDS SUMMARY | 2024-05-25 10:52 | XMS_ITS | Encounter Summary ---
[place] [address] Care Team Providers Care Medical Office Coordinator Name Role Phone Ana Her MD Primary Care Provider [phone] Encounter Details Date Type Department Care Team (Late st Contact Info) Description 05/06/2017 Telephone Radiation Oncology at [address] [address] Maria A Antonio RN Social [...] filedocumented in this encounter Care Teams Medical Office Coordinator Relationship Specialty Start Date End Date Ana Her MD [address] [facility] 1 [place] [address] PCP - General 07/29/13 documented as of this encounter
--- OUTSIDE RECORDS SUMMARY | 2024-05-25 10:52 | XMS_ITS | Encounter Summary ---
Author Organization [facility] [place] [address] Care Team Providers Care Body Straightener Name Role Phone Ana Her MD Primary Care Provider [phone] Encounter Details Date Type Department Care Team (Latest Contact Info) Description 05/31/2019 10:16 AM EST - 05/31/2019 11:59 PM EST Hospital Encounter Mammography/[place] [phone] Jeanine Lobato APRN [facility] [place] [address] History of breast cancer Discharge Disposition: Home [...] BIRADS CATEGORY 2: Benign findings. * ??[employer] [place] [employer] and The Society of [...] breast documented in this encounter Care Teams Body Straightener Relationship Specialty Start Date End Date Ana Her MD [address] [place] [address] PCP - General 07/29/13 documented as of this encounter
--- OUTSIDE RECORDS SUMMARY | 2024-05-25 10:52 | XMS_ITS | Encounter Summary ---
[place] [address] Care Team Providers Care Detector Car Operator Name Role Phone Ana Her MD Primary Care Provider [phone] Encounter Details Date Type Department Care Team (Late st Contact Info) Description 11/09/2018 2:45 PM EDT Office Visit Hematology [place] [address] Ricky Lowry MD Malignant neoplasm of lower-outer [...] ??Excision with image-guided localization ?Lymph Node Sampling: ??[place] lymph node(s) ?Specimen Laterality: ??Left Tumor ?Histologic [...] ??DCIS not present in specimen Lymph Nodes ?[place] Lymph Nodes: [place] lymph node biopsy performed ?Number of [place] Nodes Examined: ??3 ?Number of Lymph Node(s) [...] stenosis > A Fib. Cardiology at [facility]. S/P successful cardioversion May [...] laterality documented in this encounter Care Teams Detector Car Operator Relationship Specialty Start Date End Date Ana Her MD [address] [place] [address] PCP - General 07/29/13 documented as of this encounter
--- OUTSIDE RECORDS SUMMARY | 2024-05-25 10:52 | XMS_ITS | Encounter Summary ---
Author Organization [facility] [place] [address] Care Team Providers Care Notcher Name Role Phone Ana Her MD Primary Care Provider [phone] Encounter Details Date Type Department Care Team (Late st Contact Info) Description 03/19/2017 Telephone [place] [address] Malika Chen MD [facility] [address] [place] [address] Social History Tobacco Use Types Packs/Day Years [...] no unexpected bleeding. Surgery is scheduled in [facility]. documented in this encounter Plan of Treatment Not on file documented as of this encounter Visit Diagnoses Not on filedocumented in this encounter Care Teams Notcher Relationship Specialty Start Date End Date nAa Her MD [address] [facility] 1 [place] [address] PCP - General 07/29/13 documented as of this encounter
--- OUTSIDE RECORDS SUMMARY | 2024-05-25 10:53 | XMS_ITS | Encounter Summary ---
Author Organization [facility] [place] [address] Care Team Providers Care Power Line Lineman Name Role Phone Ana Her MD Primary Care Provider [phone] Encounter Details Date Type Department Care Team (Latest Contact Info) Description 02/25/2017 1:32 PM EDT - 02/25/2017 1:35 PM EDT Hospital En[place] [phone] Maryam Yee MD [facility] [place] [address] Abnormal mammogram Discharge Disposition: Home Social History [...] O [facility] [place] [address] documented in this encounter Visit Diagnoses Diagnosis [...] mg documented in this encounter Care Teams Power Line Lineman Relationship Specialty Start Date End Date Ana Her MD [address] [place] [address] PCP - General 07/29/13 documented as of this encounter
--- OUTSIDE RECORDS SUMMARY | 2024-05-25 10:53 | XMS_ITS | Encounter Summary ---
Author Organization [facility] [place] [address] Care Team Providers Care Ware Tester Name Role Phone Ana eHr MD Primary Care Provider [phone] Encounter Details Date Type Department Care Team (Latest Contact Info) Description 02/25/2017 1:36 PM EDT - 02/25/2017 2:58 PM EDT Hospital En[place] [phone] Maryam Yee MD [facility] [place] [address] Abnormal mammogram Discharge Disposition: Home Social History [...] unspecified documented in this encounter Care Teams Ware Tester Relationship Specialty Start Date End Date Ana Her MD [address] [place] [address] [address] [place] [address] PCP - General 07/29/13 documented as of this encounter
--- OUTSIDE RECORDS SUMMARY | 2024-05-25 10:53 | XMS_ITS | Encounter Summary ---
[place] [address] Care Team Providers Care New Product Trainer Name Role Phone Ana Her MD Primary Care Provider [phone] 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 * Surgical (Routine) - Closed Specialty Diagnoses / Procedures Referred By Christiano hackett Referred To Contact Orthopaedics Diagnoses Lumbar spinal stenosis Michelle Hurtado APRN [facility] [place] [address] [facility] [address] [place] [address] Referral ID Status Reason Start Date Expiration Date V isits Requested Visits Authorized [id number] Closed Consult, Test & Treat 09/08/2014 09/08/2015 3 3 Encounter Details Date Type Department Care Team (Late st Contact Info) Description 09/08/2014 Orders [place] [address] Michelle Hurtado SCRAP HANDLER [facility] [place] [address] Lumbar spinal stenosis Social History Tobacco Use [...] claudication documented in this encounter Care Teams New Product Trainer Relationship Specialty Start Date End Date Ana Her MD [facility] [address] [facility] 1 [place] [address] PCP - General 07/29/13 documented as of this encounter
--- OUTSIDE RECORDS SUMMARY | 2024-05-25 10:53 | XMS_ITS | Encounter Summary ---
Author Organization [facility] Address [address] [place] [address] Care Team Providers Care Costing Analyst Name Role Phone Unknown, Provider Primary Care Provider Unava ilable Encounter Details Date Type Department Care Team (Late st Contact Info) Description 01/20/2020 Lab Requisition [facility] Pathology & Laboratory Medicine - [facility] [address] [place] [address] Outr Resulting Lab, Provider Social History Tobacco [...] rt-PCR Result NEGATIVE Negative 01/21/2020 16:10 EDT [facility] Comment: 2019-novel Coronavirus [...] in accordance with CLIA regulations, College of [place] [employer] (CAP) guidelines (Jul 21, 2019), and FDA guidance (Jul 02, 2019). This test is only for use under the Food and Drug Administration's Emergency Use Authorization. Swab ENTIRE NASOPHARYNX / Unknown 01/20/2020 10:30 EDT 01/20/2020 15:35 EDT us Provider Outr Resulting Lab MICROBIOLOGY - GENER AL ORDERABLES Final Result Performing Organization Address City/State/[facility] Co de Phone Number [facility] [place], [place] * COVID-19 TESTING (01/20/2020 10:30 EDT) COVID-19 rt-PCR Result NEGATIVE Negative 01/21/2020 17:21 EDT [facility] Comment: 2019-novel Coronavirus (2019-nCoV) [...] in accordance with CLIA regulations, College of [place] Pathologists (CAP) guidelines (Jul 21, 2019), and FDA guidance (Jul 02, 2019). This test is only for use under the Food and Drug Administration's Emergency Use Authorization. Performing Lab [facility] 01/21/2020 17:21 EDT [facility] Swab 01/20/2020 10:3 0 EDT 01/20/2020 15:35 EDT us Provider Outr Resulting Lab MICROBIOLOGY - GENER AL ORDERABLES Final Result [facility] [address] [place] [address] [facility] [place], [place] documented in this encounter Visit Diagnoses Not on filedocumented in this encounter Care Teams Costing Analyst Relationship Specialty Start Date End Date Unknown, Provider, PCP - General 01/13/14 documented as of this encounter
--- OUTSIDE RECORDS SUMMARY | 2024-05-25 10:53 | XMS_ITS | Encounter Summary ---
[place] [address] Care Team Providers Care Art Editor Name Role Phone Ana Her MD Primary Care Provider [phone] Reason for Visit * Reason Onset Date Comments Referral 07/29/2013 Encounter Details Date Type Department Care Team (Late st Contact Info) Description 07/29/2013 [place] [phone] Sophia Palacios Referral Social History Tobacco Use [...] on filedocumented in this encounter Care Teams Art Editor Relationship Specialty Start Date End Date Ana Her MD [address] [facility] 1 [place] [address] PCP - General 07/29/13 documented as of this encounter
--- OUTSIDE RECORDS SUMMARY | 2024-05-25 10:53 | XMS_ITS | Encounter Summary ---
Author Organization [facility] Address [address] [place] [address] Care Team Providers Care Fabrication Welder Name Role Phone Unknown, Provider Primary Care Provider Unava ilable Encounter Details Date Type Department Care Team (Late st Contact Info) Description 03/17/2017 Results Only [facility] [phone] Kat Lazaro MD [facility] [address] [place], [place] [id number] Social History Tobacco Use Types Packs/Day Years [...] ? DIGNA KIMBROUGH ? Accession #: ? [id number] ? : ? 1945 (Age: 71) ??F [...] (ASCP) 03/18/2017 8:14 AM End of Report [facility] 03/17/2017 16:1 5 EST 03/17/2017 16:15 EST us Kat Lazaro MD PATHOLOGY ORDERABLES Fin al Result [facility] [address] [place] [address] documented in this encounter Visit Diagnoses Not on filedocumented in this encounter Care Teams Fabrication Welder Relationship Specialty Start Date End Date Unknown, Provider, PCP - General 01/13/14 documented as of this encounter
--- OUTSIDE RECORDS SUMMARY | 2024-05-25 10:53 | XMS_ITS | Encounter Summary ---
Author Organization [facility] Address [address] [place] [address] Care Team Providers Care Director Of Financial Aid Name Role Phone Unknown, Provider MD Primary Care Provider Unava ilable Encounter Details Date Type Department Care Team (Late st Contact Info) Description 10/26/2022 Lab Requisition [facility] Pathology & Laboratory Medicine - [facility] [address] [place] [address] Outr Resulting Lab, Provider Social History Tobacco [...] and Giardia Antigen Neg 13:48 EDT [facility] Feces SPECIMEN FROM RECTUM / Unknown 10/25/2022 15:00 EDT 10/26/2022 15:25 EDT us Provider Outr Resulting Lab MICROBIOLOGY - GENER AL ORDERABLES Final Result [facility] [address] [place] [address] * FECAL BACTERIAL PATHOGENS BY PCR (10/25/2022 15:00 EDT) Salmonella PCR Negative Negative 10/26/2022 19:17 EDT [facility] Shigella/Enteroin vasive E. coli Negative Negative 10/26/2022 19:17 EDT [facility] HN LAB CAMPYLOBACTER PCR Negative Negative 10/26/2022 19:17 EDT [facility] Shiga Toxin PCR Negative Negative 19:17 EDT [facility] Feces SPECIMEN FROM RECTUM / Unknown 10/25/2022 15:00 EDT 10/26/2022 15:25 EDT us Provider Outr Resulting Lab MICROBIOLOGY - GENER AL ORDERABLES Final Result Performing Organization Address [facility] Co de Phone Number [facility] [address] [place] [address] * OVA/PARASITE EXAM (10/25/2022 15:00 EDT) Parasite No ova and parasites seen. 10/28/2022 15:08 EDT [facility] Feces SPECIMEN FROM RECTUM / Unknown 10/25/2022 15:00 EDT 10/26/2022 15:25 EDT Narrative [facility] - 10/28/2022 15:08 EDT (If Cryptosporidium, Cyclospora, or Microsporidium are suspected, specific tests must be requested.) Single negative specimen does not rule out the possibility of a parasitic infection. us Provider Outr Resulting Lab MICROBIOLOGY - GENER AL ORDERABLES Final Result Performing Organization Address City/[facility]/ZIP Co de Phone Number [facility] [address] [place] [address] documented in this encounter Visit Diagnoses Not on filedocumented in this encounter Care Teams Director Of Financial Aid Relationship Specialty Start Date End Date Unknown, Provider, PCP - General 9/12/14 documented as of this encounter
--- OUTSIDE RECORDS SUMMARY | 2024-05-25 10:53 | XMS_ITS | Encounter Summary ---
[place] [address] Care Team Providers Care De Icer Kit Assembler Name Role Phone Ana Her MD Primary Care Provider [phone] Encounter Details Date Type Department Care Team (Late st Contact Info) Description 02/27/2017 Telephone Hematology [place] [phone] Argentina Sanchez RN Social History Tobacco Use [...] a 71 y.o. 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 Alma Delia sounds positive and has support. She will have someone accompany her to appointments. She appears to be coping well but is anxious to meet with a breast surgeon to determine a treatment plan. Alma Edlia have a bone SPECT done 1-2 months ago at [facility] and her doctor there questioned an [...] for her review (a link to the [facility] Early Stage Breast Cancer program). The [...] on filedocumented in this encounter Care Teams De Icer Kit Assembler Relationship Specialty Start Date End Date Ana Her MD [address] [place] [address] PCP - General 07/29/13 documented as of this encounter
--- OUTSIDE RECORDS SUMMARY | 2024-05-25 10:53 | XMS_ITS | Encounter Summary ---
Author Organization [facility] Address [facility] [place] [address] Care Team Providers Care Tile Installer Name Role Phone Unavailable Primary Care Provider Unavailabl e Encounter Details Date Type Department Care Team (Latest Contact Info) Description 12/25/2010 - 12/25/2010 11:59 PM EDT Hospital Encounter Radiology Library at [facility] [place] [address] Jackie Cisneros APRN [facility] [place] [address] [place] [address] Discharge Disposition: Home Social History Tobacco Use [...] Only Mammo (12/25/2010 12:00 AM EDT) Narrative [facility] - 02/23/2017 3:27 PM EDT This exam is for storage only and is auto-finalizing. Jackie Cisneros APRN IMG FILM LIBRARY ORD ERABLES NADINE Sethi documented in this encounter Visit Diagnoses Not on filedocumented in this encounter
--- OUTSIDE RECORDS SUMMARY | 2024-05-25 10:53 | XMS_ITS | Encounter Summary ---
Author Organization [facility] Address [address] [place] [address] Care Team Providers Care Salad Chef Name Role Phone Unavailable Primary Care Provider Unavailabl e Encounter Details Date Type Department Care Team (Latest Contact Info) Description 01/10/2014 20:50 EDT - 01/10/2014 23:59 EDT Hospital Encounter [facility] [address] [place] [address] Unknown, Provider, MD Discharge Disposition: Home or [...]
--- OUTSIDE RECORDS SUMMARY | 2024-05-25 10:53 | XMS_ITS | Encounter Summary ---
Author Organization [facility] Address [address] [place] [address] Care Team Providers Care Box Lidder Name Role Phone Unknown, Provider MD Primary Care Provider Unava ilable Encounter Details Date Type Department Care Team (Late st Contact Info) Description 04/06/2022 Lab Requisition [facility] Pathology & Laboratory Medicine - [facility] [address] [place] [address] Outr Resulting Lab, Provider Social History Tobacco [...] Result [facility] [address] [place] [address] documented in this encounter Visit Diagnoses Not on filedocumented in this encounter Care Teams Box Lidder Relationship Specialty Start Date End Date Unknown, Provider, PCP - General 01/13/14 documented as of this encounter
--- OUTSIDE RECORDS SUMMARY | 2024-05-25 10:53 | XMS_ITS | Encounter Summary ---
Author Organization [facility] Address [facility] [place] [address] Care Team Providers Care Flag Maker Name Role Phone Unavailable Primary Care Provider Unavailabl e Encounter Details Date Type Department Care Team (Latest Contact Info) Description 03/19/2006 - 03/19/2006 11:59 PM EST Hospital Encounter Radiology Library [place] [address] Jackie Cisneros APRN [facility] [place] [place] [address] Discharge Disposition: Home Social History Tobacco Use [...]
--- OUTSIDE RECORDS SUMMARY | 2024-05-25 10:53 | XMS_ITS | Encounter Summary ---
Author Organization [facility] Address [facility] [place] [address] Care Team Providers Care Biostatistics Manager Name Role Phone Unavailable Primary Care Provider Unavailabl e Encounter Details Date Type Department Care Team (Latest Contact Info) Description 11/12/2007 - 11/12/2007 11:59 PM EDT Hospital Encounter Radiology Library at [facility] [place] [address] Jackie Cisneros APRN [facility] [place] [address] Discharge Disposition: Home Social History Tobacco Use [...] Only Mammo (11/12/2007 12:00 AM EDT) Narrative [facility] - 02/23/2017 3:31 PM EDT This exam is for storage only and is auto-finalizing. Jackie Cisneros APRN IMG FILM LIBRARY ORD ERABLES NADINE Sethi documented in this encounter Visit Diagnoses Not on filedocumented in this encounter
--- OUTSIDE RECORDS SUMMARY | 2024-05-25 10:53 | XMS_ITS | Encounter Summary ---
Author Organization [facility] [place] [address] Care Team Providers Care Data Management Associate Name Role Phone Ana Her MD Primary Care Provider [phone] Encounter Details Date Type Department Care Team (Latest Contact Info) Description 02/25/2017 1:31 PM EDT Hospital Encounter [place] [address] Maryam Yee MD [facility] [place] [address] Abnormal mammogram Discharge Disposition: Home Social History [...] unspecified documented in this encounter Care Teams Data Management Associate Relationship Specialty Start Date End Date Ana Hre MD [address] [place] [address] PCP - General 07/29/13 documented as of this encounter
--- OUTSIDE RECORDS SUMMARY | 2024-05-25 10:53 | XMS_ITS | Encounter Summary ---
Author Organization [facility] Address [facility] [place] [address] Care Team Providers Care Newspaper Photo Editor Name Role Phone Unavailable Primary Care Provider Unavailabl e Encounter Details Date Type Department Care Team (Latest Contact Info) Description 12/08/2008 - 12/08/2008 11:59 PM EDT Hospital Encounter Radiology Library at [facility] [place] [address] Jackie Cisneros APRN [facility] [place] [address] Discharge Disposition: Home Social History Tobacco Use [...] Only Mammo (12/08/2008 12:00 AM EDT) Narrative [facility] - 02/23/2017 3:30 PM EDT This exam is for storage only and is auto-finalizing. Jackie Cisneros APRN IMG FILM LIBRARY ORD ERABLES NADINE Sethi documented in this encounter Visit Diagnoses Not on filedocumented in this encounter
--- OUTSIDE RECORDS SUMMARY | 2024-05-25 10:53 | XMS_ITS | Encounter Summary ---
Author Organization [facility] Address [address] [place] [address] Care Team Providers Care Tank Farm Attendant Name Role Phone Unknown, Provider Primary Care Provider Unava ilable Encounter Details Date Type Department Care Team (Late st Contact Info) Description 11/19/2023 Lab Requisition [facility] Pathology & Laboratory Medicine - [place] [facility] [address], [place] [address] Outr Resulting Lab, Provider Social History Tobacco [...] 201 - 352 mg/dL 11/20/2023 9:45 EDT [facility] Blood VENOUS BLOOD / Unknown 11/19/2023 6:05 EDT 11/19/2023 17:32 EDT us Provider Outr Resulting Lab CHEMISTRY & BLOOD GA S ORDERABLES Final Result [facility] [address] [place], [place] [address] documented in this encounter Visit Diagnoses Not on filedocumented in this encounter Care Teams Tank Farm Attendant Relationship Specialty Start Date End Date Unknown, Provider, PCP - General 01/13/14 documented as of this encounter
--- OUTSIDE RECORDS SUMMARY | 2024-05-25 10:53 | XMS_ITS | Encounter Summary ---
Author Organization [facility] [place] [address] Care Team Providers Care Thread Roller Name Role Phone Ana Her MD Primary Care Provider [phone] Encounter Details Date Type Department Care Team (Latest Contact Info) Description 02/17/2017 12:15 AM EDT - 02/17/2017 11:59 PM EDT Hospital Encounter Radiology Library at [facility] [place] [address] Maryam Yee MD [facility] [place] [address] Screening breast examination Discharge Disposition: Home Social [...] Only Mammo (02/17/2017 12:15 AM EDT) Narrative [facility] - 02/19/2017 2:01 PM EDT This exam is for storage only and is auto-finalizing. Maryam Yee MD IMG FILM LIBRARY O RDERABLES [place], [place] documented in this encounter Visit Diagnoses Diagnosis Screening breast examination Other screening breast examination documented in this encounter Care Teams Thread Roller Relationship Specialty Start Date End Date Ana Her MD [address] [place] [address] PCP - General 07/29/13 documented as of this encounter
--- OUTSIDE RECORDS SUMMARY | 2024-05-25 10:53 | XMS_ITS | Referral Summary ---
Author Organization [facility] Address [address] [place] [address] Care Team Providers Care Mechanical Design Drafter Name Role Phone Unknown, Provider MD Primary Care Provider Unava ilable Social History Tobacco Use Types Packs/Day Years Used Date Smoking Tobacco: Never Assessed Comments Unknown Sex and Gender Information Value Date Recorded Sex Assigned at Not on file Legal Sex Female 9:32 EDT Gender Identity Not on file Sexual Orientation Not on file Plan of Treatment Not on file Care Teams Mechanical Design Drafter Relationship Specialty Start Date End Date Unknown, Provider, PCP - General 01/13/14
--- OUTSIDE RECORDS SUMMARY | 2024-05-25 10:53 | XMS_ITS | Encounter Summary ---
Author Organization [facility] Address [facility] [place] [address] Care Team Providers Care Vortex Operator Name Role Phone Unavailable Primary Care Provider Unavailabl e Encounter Details Date Type Department Care Team (Latest Contact Info) Description 01/29/2013 - 01/29/2013 11:59 PM EDT Hospital Encounter Radiology Library at [facility] [place] [address] Jackie Cisneros APRN [facility] [place] [address] Discharge Disposition: Home Social History Tobacco Use [...]
--- OUTSIDE RECORDS SUMMARY | 2024-05-25 10:53 | XMS_ITS | Encounter Summary ---
Author Organization [facility] Address [facility] [place] [address] Care Team Providers Care Judicial Reporter Name Role Phone Ana Her MD Primary Care Provider Encounter Details Date Type Department Care Team (Latest Contact Info) Description 02/12/2017 - 02/12/2017 11:59 PM EDT Hospital Encounter Radiology Library at [facility] [place] [address] Maryam Yee MD [facility] [place] [address] Screening breast examination Discharge Disposition: Home Social [...] Only Mammo (02/12/2017 12:00 AM EDT) Narrative [facility] - 02/19/2017 1:47 PM EDT This exam is for storage only and is auto-finalizing. Maryam Yee MD IMG FILM LIBRARY O RDERABLES Performing Organization Address City/State/[facility] Co de Phone Number [place], [place] documented in this encounter Visit Diagnoses Diagnosis Screening breast examination Other screening breast examination documented in this encounter Care Teams Judicial Reporter Relationship Specialty Start Date End Date Ana Her MD [address] [place] [address] PCP - General 07/29/13 documented as of this encounter
--- OUTSIDE RECORDS SUMMARY | 2024-05-25 10:53 | XMS_ITS | Encounter Summary ---
[place] [address] Care Team Providers Care Respiratory Care Assistant Name Role Phone Ana Her MD Primary Care Provider [phone] Encounter Details Date Type Department Care Team (Late st Contact Info) Description 07/26/2013 Orders [place] [address] Ana Her MD [facility] [address] [place] [address] Social History Tobacco Use Types Packs/Day Years [...] is a Non-reportable exam Ana Her MD [facility] FILM LIBRARY ORD ERABLES documented in this encounter Visit Diagnoses Not on filedocumented in this encounter Care Teams Respiratory Care Assistant Relationship Specialty Start Date End Date Ana Her MD [address] [place] [address] PCP - General 07/29/13 documented as of this encounter
--- OUTSIDE RECORDS SUMMARY | 2024-05-25 10:53 | XMS_ITS | Encounter Summary ---
Author Organization [facility] [place] [address] Care Team Providers Care Continuous Mining Operator Name Role Phone Ana Her MD Primary Care Provider [phone] Encounter Details Date Type Department Care Team (Latest Contact Info) Description 02/25/2017 2:59 PM EDT - 02/25/2017 11:59 PM EDT Hospital [place] [phone] Enzo Burkett MD Abnormal finding on breast [...] associated with invasive carcinoma. Enzo Burkett MD [facility] MAMMO ORDERABLES * Surgical Pathology Report (02/25/2017 3:01 PM EDT) Final Diagnosis [id number] ? Location: 3L The signing pathologist has [...] FISH. ??Direct analysis was performed using the [employer] Kit. ??Slide adequacy and signal enumeration were [...] factor receptor 2 testing in breast cancer: [place] Society of Clinical Oncology/College of [place]ologists clinical practice guideline update. J Clin Oncol. 2013 Nov . Reviewed by: Kyara Logan MD Reptile Farmer, Molecular Pathology _ Electronically signed by: ??Epifanio Serra MD Verified: ??03/04/2017 ?Pathologist Performed at: ??-[facility] Dept. of Pathology, [place], [place] ? Addendum ADDENDUM DISCUSSION Immunohistochemist ry Studies Specimen: Left breast, core needle biopsy (A1) ER immunoreactivity: Positive ( ??>90% cancer cells with immunostaining) Stain intensity: Strong . ADDENDUM DISCUSSION MN immunoreactivity: Positive ( ??>90% cancer cells with [...] The assays were performed according to the electronic specialist ' s instructions using Anti-ER (SP1) and Anti-MN (16) antibodies. Electronically signed by: ??Epifanio Serra MD Verified: ??02/27/2017 ?Pathologist Performed at: ??-[facility] Dept. of Pathology, [place], [place] ?Surgical Pathology DIAGNOSIS Needle biopsies: ?Left breast Diagnosis: ?Invasive mucinous carcinoma (see Discussion) ?Intermediate grade, modified SBR score = 6 Microcalcification s: ??Few calcifications associated with invasive carcinoma Electronically signed by: ??Ponce MELTON, Epifanio Gamez Verified: ??02/26/2017 ?Pathologist Performed at: ??-[facility] Dept. of Pathology, [place], [place] DISCUSSION Studies for ER, MN, and HER2 have been ordered; results will [...] (T4) ??elian 03/04/2017 2:01 PM EDT [facility] BREAST STRUCTURE / Unknown 02/25/2017 3:01 PM EDT 02/25/2017 3:01 PM EDT Enzo Burkett MD PATHOLOGY/CYTOLOGY O RDERABLES [facility] [place] [address] documented in this encounter Visit Diagnoses Diagnosis Abnormal finding on breast imaging Other (abnormal) findings on radiological examination of breast documented in this encounter Care Teams Continuous Mining Operator Relationship Specialty Start Date End Date Ana Her MD [address] [place] [address] PCP - General 07/29/13 documented as of this encounter
--- OUTSIDE RECORDS SUMMARY | 2024-05-25 10:53 | XMS_ITS | Encounter Summary ---
Author Organization [facility] Address [facility] [place] [address] Care Team Providers Care Research Coordinator Name Role Phone Ana Her MD Primary Care Provider [phone] Encounter Details Date Type Department Care Team (Latest Contact Info) Description 04/24/2014 - 04/24/2014 11:59 PM EST Hospital Encounter Radiology Library at [facility] [place] [address] Maryam Yee MD [facility] [place] [address] Screening breast examination Discharge Disposition: Home Social [...] [facility] - 02/19/2017 1:46 PM EDT This exam is for storage only and is auto-finalizing. Maryam Yee MD IMG FILM LIBRARY O RDERABLES [place], [place] documented in this encounter Visit Diagnoses Diagnosis Screening breast examination Other screening breast examination documented in this encounter Care Teams Research Coordinator Relationship Specialty Start Date End Date Ana Her MD [address] [facility] [address] [place] [address] PCP - General 07/29/13 documented as of this encounter
--- OUTSIDE RECORDS SUMMARY | 2024-05-25 10:53 | XMS_ITS | Encounter Summary ---
Author Organization [facility] Address [facility] [place] [address] Care Team Providers Care Old Coin Dealer Name Role Phone Ana Her MD Primary Care Provider [phone] Encounter Details Date Type Department Care Team (Latest Contact Info) Description 10/28/2016 - 10/28/2016 11:59 PM EDT Hospital Encounter Radiology Library [place] [address] Ricky Lowry MD Discharge Disposition: Home Social [...] DXA Images (10/28/2016 12:00 AM EDT) Narrative [facility] - 04/24/2017 2:13 PM EST This exam is for storage only and is auto-finalizing. Ricky Lowry MD IMG FILM LIBRARY ORD ERABLES Performing Organization Address City/State/[place] Co de Phone Number [place], [place] documented in this encounter Visit Diagnoses Not on filedocumented in this encounter Care Teams Old Coin Dealer Relationship Specialty Start Date End Date Ana Her MD [address] [place] [address] PCP - General 07/29/13 documented as of this encounter
--- OUTSIDE RECORDS SUMMARY | 2024-05-25 10:53 | XMS_ITS | Encounter Summary ---
Author Organization [facility] Address [facility] [place] [address] Care Team Providers Care Actuarial Trainee Name Role Phone Ana Her MD Primary Care Provider [phone] Encounter Details Date Type Department Care Team (Latest Contact Info) Description 02/17/2017 - 02/17/2017 12:14 AM EDT Hospital Encounter Radiology Library at [facility] [place] [address] Maryam Yee MD [facility] [place] [address] Screening breast examination Discharge Disposition: Home Social [...] Only Mammo (02/17/2017 12:00 AM EDT) Narrative [facility] - 02/19/2017 1:59 PM EDT This exam is for storage only and is auto-finalizing. Maryam Yee MD IMG FILM LIBRARY O RDERABLES Performing Organization Address City/State/[facility] Co de Phone Number [place], [place] documented in this encounter Visit Diagnoses Diagnosis Screening breast examination Other screening breast examination documented in this encounter Care Teams Actuarial Trainee Relationship Specialty Start Date End Date Ana Her MD [address] [place] [address] PCP - General 07/29/13 documented as of this encounter
--- OUTSIDE RECORDS SUMMARY | 2024-05-25 10:53 | XMS_ITS | Encounter Summary ---
Author Organization [facility] Address [facility] [place] [address] Care Team Providers Care Lumber Straightener Name Role Phone Ana Her MD Primary Care Provider [phone] Encounter Details Date Type Department Care Team (Late st Contact Info) Description 09/13/2015 Interpretation Only Radiology [address] [facility] [place] [address] Unknown None Social History Tobacco Use Types [...] 6:56 AM EDT APD Historical Result Principal Financial Investment Adviser: ??MAE ??ESCHBACH IMAGE-INTENSIFIER FILMS: INDICATION: ??Right L4 foraminotomy. FINDINGS: A total of 5.8 seconds of fluoro time was utilized by Geraldine Claros MD. ??Estimated dose is 5.96 mGy. ??Two image-intensifier films record the event. ??They show the lumbosacral junction in the lateral projection with a surgical instrument indicating the level of L4. ??No Radiologist was present for this exam. Mae Shelley DO TOBIN/mn [id number] Procedure Note Unknown - 11/01/2018 APD Historical Result Principal Financial Investment Adviser: MAE SHELLEY IMAGE-INTENSIFIER FILMS: INDICATION: Right L4 foraminotomy. FINDINGS: A total of 5.8 seconds of fluoro time was utilized by Geraldine Claros MD. Estimated dose is 5.96 mGy. Two image-intensifier films record the event. They show thelumbosacral junction in the lateral projection with a surgical instrument indicating the level of L4.No Radiologist was present for this exam. Mae Shelley DO TOBIN/mn [id number] Unknown IMG FLUORO ORDERABLE S documented in this encounter Visit Diagnoses Not on filedocumented in this encounter Care Teams Lumber Straightener Relationship Specialty Start Date End Date Ana Her MD [address] [place] [address] PCP - General 07/29/13 documented as of this encounter
--- OUTSIDE RECORDS SUMMARY | 2024-05-25 10:53 | XMS_ITS | Clinical Summary ---
Author Organization [facility] Address [address] [place] [address] Care Team Providers Care Solar Systems Designer Name Role Phone Unknown, Provider MD Primary [...] COVID-19 Vaccine (2023- season) 2024 Care Teams Solar Systems Designer Relationship Specialty Start Date End Date Unknown, Provider, PCP - General 01/13/14
--- OUTSIDE RECORDS SUMMARY | 2024-05-25 10:53 | XMS_ITS | Encounter Summary ---
[place] [address] Care Team Providers Care Field Cane Scaler Name Role Phone Ana Her MD Primary Care Provider [phone] Reason for Visit * Reason Comments Low Back Pain Encounter Details Date Type Department Care Team (Late st Contact Info) Description 08/30/2014 8:35 AM EDT Office [place] [phone] Michelle Hurtado APRN [facility] [place] [address] Neurogenic claudication due to lumbar spinal stenosis [...] this encounter Progress Notes * Michelle Hurtado, PLASTER WHITTLER - 08/30/2014 9:37 AM EDT CHIEF COMPLAINT: [...] Treatments to date have included: LESIs in [place] at L4-5 in 2013-no relief, Flexeril-helpful, physical [...] 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 MEDICATIONS & [...] care of this patient. Michelle Hurtado MS, PLASTER WHITTLER, RUBY ON RAILS SOFTWARE DEVELOPER-C [facility] documented in this encounter Plan of Treatment Not on file documented as of this encounter Visit Diagnoses Diagnosis Neurogenic claudication due to lumbar spinal stenosis Spinal stenosis, lumbar region, with neurogenic claudication documented in this encounter Care Teams Field Cane Scaler Relationship Specialty Start Date End Date Ana Her MD [address] [place] [address] PCP - General 07/29/13 documented as of this encounter
--- OUTSIDE RECORDS SUMMARY | 2024-05-25 10:53 | XMS_ITS | Encounter Summary ---
Author Organization [facility] [place] [address] Care Team Providers Care Electrical Installation Supervisor Name Role Phone Ana Her MD Primary Care Provider [phone] Encounter Details Date Type Department Care Team (Late st Contact Info) Description 08/16/2014 Orders Only Functional Cheondoism Program at [facility] [address] [place] [address] Khari Martínez MD Social History Tobacco Use [...] filedocumented in this encounter Care Teams Electrical Installation Supervisor Relationship Specialty Start Date End Date Ana Her MD [facility] [address] [facility] [address] [place] [address] PCP - General 07/29/13 documented as of this encounter
--- OUTSIDE RECORDS SUMMARY | 2024-05-25 10:53 | XMS_ITS | Encounter Summary ---
Author Organization [facility] Address [address] [place] [address] Care Team Providers Care Regional Intermodal Truck Driver Name Role Phone Unknown, Provider MD Primary Care Provider Unava ilable Encounter Details Date Type Department Care Team (Late st Contact Info) Description 08/12/2021 Lab Requisition [facility] Pathology & Laboratory Medicine - [facility] [address] [place] [address] Outr Resulting Lab, Provider Social History Tobacco [...] Priority Date/Time Associated Diagnosis Comments ZZCOVID-19 TEST [facility] PCR Today 08/12/2021 15:00 EDT COVID-19 TESTING Routine 08/12/2021 15:0 0 EDT documented in this encounter Results * COVID-19 TEST [facility] PCR (08/12/2021 15:00 EDT) Swab 08/12/2021 15:0 0 EDT 08/13/2021 16:56 EDT us Provider Outr Resulting Lab MICROBIOLOGY - GENER AL ORDERABLES Final Result [facility] [address] [place] [address] * COVID-19 TESTING (08/12/2021 15:00 EDT) COVID-19 rt-PCR Result Negative Negative 08/14/2021 11:53 EDT [facility] Comment: This test has not [...] was performed using the palomo SARS-CoV-2 assay ([employer] on the Palomo 6800 System Performing Lab Palomo 6800 [facility] 08/14/2021 11:53 EDT [facility] Swab 08/12/2021 15:0 0 EDT 08/13/2021 16:56 EDT us Provider Outr Resulting Lab MICROBIOLOGY - GENER AL ORDERABLES Final Result [facility] [address] [place] [address] documented in this encounter Visit Diagnoses Not on filedocumented in this encounter Care Teams Regional Intermodal Truck Driver Relationship Specialty Start Date End Date Unknown, Provider, PCP - General 01/13/14 documented as of this encounter
--- OUTSIDE RECORDS SUMMARY | 2024-05-25 10:53 | XMS_ITS | Encounter Summary ---
[place] [address] Care Team Providers Care Skin Pass Operator Name Role Phone Ana Her MD Primary Care Provider [phone] Reason for Visit * Reason Comments Low Back Pain Bilateral Hip Pain when standing or wal jaquelin Encounter Details Date Type Department Care Team (Late st Contact Info) Description 09/12/2014 11:20 AM EDT Office [place] [phone] Kris Benoit MD Neurogenic claudication due to [...] pain free. Lumbar MRI from 08/16/2014 from [facility] is notable for multilevel degenerative changes L2-L3, L3-L4, L4-L5, L5-S1. At L2-L3, she has [id number] spinal stenosis, but she has no leg [...] claudication documented in this encounter Care Teams Skin Pass Operator Relationship Specialty Start Date End Date Ana Her MD [address] [place] [address] PCP - General 07/29/13 documented as of this encounter
--- OUTSIDE RECORDS SUMMARY | 2024-05-25 10:53 | XMS_ITS | Encounter Summary ---
Author Organization [facility] [place] [address] Care Team Providers Care Ward Nurse Name Role Phone Ana Her MD Primary Care Provider [phone] Encounter Details Date Type Department Care Team (Late st Contact Info) Description 03/03/2017 Notes [place] [address] January Ward MSW Social History Tobacco Use Types Packs/Day Years Used Date Smoking Tobacco: Never Smokeless Tobacco: Never Sex and Gender Information Value Date Recorded Sex Assigned at Not on file Gender Identity Not on file Sexual Orientation Not on file documented as of this encounter Progress Notes * January Ward MSW - 03/03/2017 12:56 PM EDT OFFICE OF CARE MANAGEMENT/CONTINUING TURKEY PICKER Reason for referral: Digna Olson is a [...] the [facility]. [facility] met with pt to complete a psychosocial assessment and to explain my role in the breast program. Pt was encouraged to contact me if she has any questions or concerns. Living arrangements/social supports: Pt lives alone in [place], [place]. She has support from her family and is accompanied to today's appt by her sisters who live in [place]. Employment/Insurance/Finances: Pt is retired and receives Social Security Skilled Nursing Benefits. Pt has Medicare A and B [...] [facility]. Plan: [facility] will continue to follow pt to assess and assist with their psychosocial needs. DELONTE [facility] [phone] Pager #[phone] documented in this encounter Plan of Treatment Not on file documented as of this encounter Visit Diagnoses Not on filedocumented in this encounter Care Teams Ward Nurse Relationship Specialty Start Date End Date Ana Her MD [address] [place] [address] PCP - General 07/29/13 documented as of this encounter
--- OUTSIDE RECORDS SUMMARY | 2024-05-25 10:53 | XMS_ITS | Encounter Summary ---
Author Organization [facility] Address [facility] [place] [address] Care Team Providers Care Ethnic Origins Teacher Name Role Phone Ana Her MD Primary Care Provider [phone] Encounter Details Date Type Department Care Team (Latest Contact Info) Description 02/23/2017 3:50 PM EDT - 02/23/2017 11:59 PM EDT Hospital Encounter Radiology Library at [facility], [place] [phone] Jackie Cisneros APRN [address] [place] [address] Left breast mass Discharge Disposition: Home Social [...] recommended. Please note: The interpretation of the [facility] Breast Imaging Radiologist subspecialist may differ from the original radiologists interpretation. This is usually not due to a deficiency of the original interpreting radiologist, rather due to the greater skill level afforded by sub-specialization in the field and/or reasonable variations in interpretations. If you have a concern regarding the D-H interpretation you may contact the [facility] Breast Consumer Sales Representative Office at . I have personally reviewed [...] recommended. Please note: The interpretation of the [facility] BreastImaging Radiologist subspecialist may differ from the original radiologists interpretation. This is usually not due to a deficiency of the original interpreting radiologist, rather due to the greater skill level affordedby sub-specialization in the field and/or reasonable variations ininterpretations. If you have a concern regarding the D-H interpretation [facility] at . I have personally reviewed the image(s) and the residents interpretationand agree with the findings, ROBERT THOMPSON at 02/24/2017 8:41 AM 8:41 AM Jackie Cisneros WENDY IMG OUTSIDE INTERPRE TATION ORDERABLES documented in this encounter Visit Diagnoses Diagnosis Left breast mass Lump or mass in breast documented in this encounter Care Teams Ethnic Origins Teacher Relationship Specialty Start Date End Date Ana Her MD [address] [place] [address] PCP - General 07/29/13 documented as of this encounter
--- OUTSIDE RECORDS SUMMARY | 2024-05-25 10:53 | XMS_ITS | Encounter Summary ---
Author [place] [address] Care Team Providers Care Mash Grinder Name Role Phone Ana Her MD Primary Care Provider [phone] Encounter Details Date Type Department Care Team (Latest Contact Info) Description 03/03/2017 7:55 AM EDT Laboratory Appointment Lab [address] [place] [address] Malignant neoplasm of left breast in female, [...] 7:50 AM EDT) Neutrophil % 72.8 % [facility] Neutrophil Absolute 6.45(H) 1.70 - 6.10 x10(3)/mc L [facility] Lymph % 14.4 % [facility] Lymphocytes Abs 1.3 0.9 - 3.2 x10(3)/ L [facility] Monocyte % 5.6 % [facility] Monocyte Abs 0.5 0.3 - 0.9 x10(3)/ L [facility] Eos % 6.1 % [facility] Eosinophils Abs 0.5(H) 0.0 - 0.4 x10(3)/ L [facility] Basophil % 0.6 % [facility] [...] HEMATOLOGY ORDERABL ES [facility] [place] [address] * (ABNORMAL) Hemogram (03/03/2017 7:50 AM EDT) [...] RDW Standard Deviation 48.3(H) 37.0 - 46.0 [facility] RDW coefficient of variation 13.9 11.5 - 14.1 % [facility] Mean Platelet Volume 11.9 7.6 - 12.9 fL [facility] NRBC% auto 0.0 % [facility] NRBC Absolute 0.000 0.000 - 0.000 x10(3)/ L [facility] Blood specimen (specimen) 03/03/2017 7:50 AM EDT 03/03/2017 8:03 AM EDT Narrative Resulting Agency Comment Spec In Lab Malika Chen MD HEMATOLOGY ORDERABL ES [facility] [place] [address] * (ABNORMAL) Comprehensive metabolic panel (non-fasting) (03/03/2017 [...] LABORATORY Est Glomerular Filtration Rate 58(L) >=60 [facility] Comment: The reported eGFR should be multiplied by 1.2 for patients. The MDRD is not an appropriate measure of renal function for patients with body mass extremes or in patients with acute kidney failure. http://Access Point.BAE Systems/DHnkdep http://Access Point.com/DHMCnkf Blood specimen (specimen) 03/03/2017 7:50 AM EDT 03/03/2017 8:03 AM EDT Narrative Resulting Agency Comment Spec In Lab Malika Chen [place] [address] documented in this encounter Visit Diagnoses Diagnosis Malignant neoplasm of left breast in female, estrogen receptor positive, unspecified site of breast documented in this encounter Care Teams Mash Grinder Relationship Specialty Start Date End Date Ana Her MD [address] [place] [address] PCP - General 07/29/13 documented as of this encounter
--- OUTSIDE RECORDS SUMMARY | 2024-05-25 10:53 | XMS_ITS | Encounter Summary ---
Author Organization [facility] [place] [address] Care Team Providers Care Choir Director Name Role Phone Ana Her MD Primary Care Provider [phone] Encounter Details Date Type Department Care Team (Late st Contact Info) Description 03/04/2017 Orders [place] [address] Malika Chen MD [facility] [place] [address] Malignant neoplasm of upper-outer quadrant of left [...] MD IMG MAMMO ORDERABLE S * Mammo [place] Node Injection (03/30/2017 9:01 AM EST) Anatomical [...] positive documented in this encounter Care Teams Choir Director Relationship Specialty Start Date End Date Ana Her MD [address] [facility] [address] [place] [address] PCP - General 07/29/13 documented as of this encounter
--- OUTSIDE RECORDS SUMMARY | 2024-05-25 10:53 | XMS_ITS | Encounter Summary ---
Author Organization [facility] [place] [address] Care Team Providers Care Injection Machine Operator Name Role Phone Ana Her MD Primary Care Provider [phone] Encounter Details Date Type Department Care Team (Late st Contact Info) Description 02/27/2017 Orders [place] [address] Malika Chen MD [facility] [place] [address] Malignant neoplasm of left breast in female, [...] or in patients with acute kidney failure. http://Filecubed.Dynamic Signal/DHnkdep http://Filecubed.Dynamic Signal/DHMCnkf Blood specimen (specimen) 03/03/2017 7:50 AM EDT 03/03/2017 8:03 AM EDT Narrative Resulting Agency Comment Spec In Lab Malika Chen MD CHEMISTRY ORDERABLE S [facility] [place] [address] documented in this encounter Visit Diagnoses Diagnosis Malignant neoplasm of left breast in female, estrogen receptor positive, unspecified site of breast documented in this encounter Care Teams Injection Machine Operator Relationship Specialty Start Date End Date Ana Her MD [address] [facility] [address] [place] [address] PCP - General 07/29/13 documented as of this encounter
--- OUTSIDE RECORDS SUMMARY | 2024-05-25 10:53 | XMS_ITS | Encounter Summary ---
Author Organization [facility] Address [place] [address] Care Team Providers Care Architect Internship Name Role Phone Unavailable Primary Care Provider Unavailabl e Encounter Details Date Type Department Care Team (Latest Contact Info) Description 04/04/2005 - 04/04/2005 11:59 PM EST Hospital Encounter Radiology Library [place] [address] Jackie Cisneros APRN [facility] [place] [address] [place] [address] Discharge Disposition: Home Social History Tobacco Use [...]
--- OUTSIDE RECORDS SUMMARY | 2024-05-25 10:53 | XMS_ITS | Encounter Summary ---
[place] [address] Care Team Providers Care Peeler Operator Name Role Phone Ana Her MD Primary Care Provider [phone] Reason for Visit * Reason Comments Establish Care * Consultation (Routine) - Specialty Diagnoses / Procedures Referred By Christiano hackett Referred To Contact Hematology and Oncology Diagnoses Other abnormal and inconclusive findings on diagnostic imaging of breast abnormal mammo, left breast Jackie Cisneros, WENDY [address] [place] [address] [facility] Hem Onc [address] [place] [address] Referral ID Status Reason Start Date Expiration Date V isits Requested Visits Authorized [id number] Consult, Test & Treat [facility] 02/17/2017 05/20/2017 6 6 Encounter Details Date Type Department Care Team (Late st Contact Info) Description 03/03/2017 9:00 AM EDT Office Visit [place] [address] Malika Chen MD [facility] [place] [address] Argentina Sanchez, RN Malignant neoplasm [...] Exercises handout created by physical therapists at [facility]. 7. Breast Cancer Treatment Process care map provided and reviewed. 8. Things to Consider...What I Wish I Knew advice from breast cancer patients handout provided. She verbalized understanding of the plan of care and states all her questions were answered. Twentyminutes was spent in education and providing support. Alma Delia has our contact information. She will call the blending machine feeder to schedule surgery after she has her [...] Alma Delia had a bone scan in [place] which was read as possible metastasis in the left tibia. Of note- she fractured this area recently. She has recovered well. PMH HNT NIDDM not on meds Spinal stenosis Fractured left tibial plateau December, GERD FH: Maternal first cousin with breast cancer Brother with rectal cancer Sister with PE SH: lives alone. Has good support from sisters who live in [place]. Non smoker. Has a son who lives [...] positive documented in this encounter Care Teams Peeler Operator Relationship Specialty Start Date End Date Ana Her MD [address] [place] [address] PCP - General 07/29/13 documented as of this encounter
--- OUTSIDE RECORDS SUMMARY | 2024-05-25 10:53 | XMS_ITS | Encounter Summary ---
Author Organization [facility] Address [facility] [place] [address] Care Team Providers Care Network Developer Name Role Phone Unavailable Primary Care Provider Unavailabl e Encounter Details Date Type Department Care Team (Latest Contact Info) Description 12/19/2009 - 12/19/2009 11:59 PM EDT Hospital Encounter Radiology Library at [facility] [place] [address] Jackie Cisneros APRN [facility] [place] [address] [place] [address] Discharge Disposition: Home Social History Tobacco Use [...] Only Mammo (12/19/2009 12:00 AM EDT) Narrative [facility] - 02/23/2017 3:29 PM EDT This exam is for storage only and is auto-finalizing. Jackie Cisneros APRN IMG FILM LIBRARY ORD ERABLES NADINE Sethi documented in this encounter Visit Diagnoses Not on filedocumented in this encounter
--- OUTSIDE RECORDS SUMMARY | 2024-05-27 09:49 | XMS_ITS | Continuity of Care Document ---
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 Sleep Medicine [facility] Development Professional Assessment Encounter Date Assessment Date Assessment LastModified by Organization Details LastModified Time 05/23/2024 05/23/2024 The total time devoted to today's encounter, including both the [id number]-[id number] time with the patient and/or family/caregi josefina and aaa-[id number]-cg-[id number] patrick time I personally spent is 42 minutes. Not available 05/23/2024 15:47:33 Plan of Treatment Reminders Order Date Submit Date Provider Last Modified By Organization Details Last Modified Time Details Appointments None recorded. Lab None recorded. Referral gastroente rologist referral - You saw [...] at rehab and was negative. 2024 025 [facility], [address], [place], [address], 09:45:21 Procedures None recorded. Surgeries None recorded. Imaging None recorded. Medication Orders colestipol 1 gram tablet 2024 [facility], [address] [place] [address], [facility], [place], [address], 14:26:17 carvedilol 25 mg tablet 2024 [facility], [address] [place] [address], [facility], [place], [address], 14:26:15 Patient TargetsNo targets recorded. Patient InstructionsNo instructions recorded. 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 Website Developer Referral for Chronic diarrhea You saw Alma [...] at rehab and was negative. Referring Physician: Ana Her, Family Medicine, Encounter Date: 05/23/2024 Problems Name Problem SNOMED Code Status Onset Date Resolution Date Notes Provider Name and Address Organization Details Recorded Time Osteopor otic fracture Active 2023 Zoledron ate started at time of humeral fracture 2023- MD [address], [place], [address] , [facility] 4 17:34:10 Hypothyr oidism 90776637 Active 1959 EVIE shaw, [facility] 4 10:29:59 Essentia l hyperten jason 94709978 Active 1959 EVIE shaw, [facility] 4 10:29:36 Hyperlip idemia 82822502 Active 1959 on statin MD [address], [place], [address] , [facility] 4 20:35:18 Spinal stenosis of lumbar region 66282325 Active 2012 s/p lumbar foramino parish L4 MD [address], [place], [address] , [facility] 4 20:36:41 Sleep apnea 05034739 Active 2012 on CPAP MD [address], [place], [address] , [facility] 4 20:39:31 Gastroes ophageal reflux disease without esophagi tis 693770767 Completed 195908/12/2023 Removal Reason: resolved with surgical repair of HH MD [address], [place], [address] , [facility] 4 10:41:24 Family history of malignan t neoplasm of digestiv e organ 345275722 Active [address], [place], [address] , [facility] 4 20:37:03 Paresthe samir 86091983 Completed 201412/01/2014 11/28/19 15 - Comments only - Ana Her MD - check B12 and folate Problem Code: R20.2; Problem Code Type: ICD-10; Not Available [facility] 3 05:53:48 Adult health examinat ion Active [address], [place], [address] , [facility] 4 20:33:34 Pre-surg ruben evaluati [...] ICD-10; Not Available [facility] 3 05:53:48 Localize d edema 316055054 Completed 201501/29/2016 12/13/19 16 - Comments only - Ana Her MD - and some on left as well, will check BMP. 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 Nusrat holt for removal. Problem Code: L72.3; Problem Code Type: ICD-10; Not Available [facility] 3 05:53:49 Chronic ulcer of foot 299333494 Completed 201601/16/2017 12/18/19 17 - Comments only - Ana Her MD - Due to injury. This does appear to have some granulat ion tissue and to be healing. She is given a prescrip tion for Keflex to take only if erythema seems to be extendin g. Problem Code: L97.509; Problem Code Type: ICD-10; Not Available [facility] 3 05:53:49 Diarrhea 45048327 Completed 201602/10/2017 02/05/20 17 - Comments only - Ana Her MD - Persiste nt over several months, we will collect stool for C. 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 6 mm PT1NO E2P2 poistive , HER2 negative MD [address], [place], [address] , [facility] 4 20:38:49 Pain in left lower limb 467409229 [facility] 2016 [facility] 4 10:32:00 Pain in thoracic spine 657219644 Active 2016 [facility] 4 10:32:06 Spasm 51288448 Active 2017 [facility] 4 10:33:28 Abdomina l distensi on, gaseous 673219441 Completed 201703/08/2018 Problem Code: R14.0; Problem Code Type: ICD-10; Not Available [facility] 3 05:53:50 Cellulit is of toe 57435627 Completed 201808/12/2018 Problem Code: L03.039; Problem Code Type: ICD-10; Not Available [facility] 3 05:53:51 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 2018 [facility] 4 14:36:02 Tachycar lea 8509024 Completed 201811/25/2018 Problem Code: R00.0; Problem Code Type: ICD-10; Not Available [facility] 3 05:53:51 Pre-surg ruben evaluati on Completed 201811/25/2018 Problem Code: Z01.818; Problem Code Type: ICD-10; Not Available [facility] 3 05:53:51 Iron deficien cy anemia 92877315 Active 2019 elevated MCV: normal B12 2021, normal folate 2018 IV iron 2023 EGD 01/2022 paraesop hageal hernia (since repaired ) colo 03/[address] normal MD [address], [place], [address] , [facility], [facility]. 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 - Likely aggravat ed by increase [...] M54.40; Problem Code Type: ICD-10; Not Available [facility] 3 05:53:52 Right side sciatica 18672825254 9101 Active 2019 EVIE HOOPER [facility] 4 10:33:09 Left side sciatica 66504628292 9104 Active [address], [place], [address] , [facility] 4 17:20:20 Diaphrag matic hernia 76139678 Completed 202108/11/2023 Removal Reason: s/p repair MD [address], [place], [address] , [facility] 4 20:50:39 History of SARS-CoV -2 [id number] 4917127 Completed 202104/04/2022 03/21/20 22 - Comments only - Ana Her MD - testing is negative today in the office. Still some fatigue but otherwis e recoveri ng. Did get MAB. Already had covid bivalent booster prior to illness Problem Code: Z86.16; Problem Code Type: ICD-10; Not Available [facility] 3 05:53:53 Diarrhea 59877817 Completed 202104/18/2022 Problem Code: R19.7; Problem Code Type: ICD-10; MD [address], [facility] [address] , [facility] 4 21:03:02 Screenin g mammogra phy Completed 202208/11/[address], [address] , [facility] 4 20:36:56 Carpal tunnel syndrome of left wrist 62306691981 9102 Completed 202201/23/2023 Problem Code: G56.02; Problem Code Type: ICD-10; Not Available [facility] 4 05:37:46 Diarrhea 62192146 Active 2022 started colestip ol 01/[address], [facility] [address] , [facility] 4 21:03:02 Carpal tunnel syndrome of right wrist 24174216067 9108 Completed 201803/19/2020 Problem Code: G56.01; Problem Code Type: ICD-10; Not Available [facility] 3 05:53:55 Pain of left knee joint 14333714479 4107 Completed 202107/30/2022 Problem Code: M25.562; Problem Code Type: ICD-10; Not Available [facility] 3 05:53:55 Hypersom korina 14569059 Completed 201311/27/2014 Problem Code: 780.54; Problem Code Type: ICD-9; Not Available [facility] 3 05:53:56 Screenin g for disorder Completed 201909/11/2021 Problem Code: Z13.9; Problem Code Type: ICD-10; Not Available [facility] 3 05:53:56 Anemia 592376727 Completed 201903/19/2020 Problem Code: D64.9; Problem Code Type: ICD-10; Not Available [facility] 3 05:53:56 Long-ter m current use of anticoag ulant 225156223 Completed 201709/01/2018 Problem Code: Z79.01; Problem Code Type: ICD-10; Not Available [facility] 3 05:53:57 Chronic rhinitis 62910278 Completed 202108/12/2021 Problem Code: J31.0; Problem Code Type: ICD-10; Not Available [facility] 3 05:53:57 Impaired fasting glycemia 072936010 Completed 201401/28/2023 Not Available [facility] 3 05:53:57 Fatigue 29821110 Completed 201903/19/2020 Problem Code: R53.83; Problem Code Type: ICD-10; Not Available [facility] 3 05:53:58 Upper respirat ory tract infectio n caused by Influenz a A 48621697399 9104 Completed 201707/02/2017 Problem Code: J09.x2; Problem Code Type: ICD-10; Not Available [facility] 3 05:53:59 Diarrhea 74288452 Completed 201709/01/2018 ANA HER MD [facility] [address], [place], [address] , [facility]. 4 21:03:02 Acute upper respirat ory infectio n 22770989 Completed 202108/26/2021 Problem Code: J06.9; Problem Code Type: ICD-10; Not Available [facility] 3 05:53:59 Pain in right foot 91351932636 9107 Completed 202207/30/2022 Problem Code: M79.671; Problem Code Type: ICD-10; Not Available [facility] 3 05:54:00 Breast composit ion 753558164 Completed 201601/28/2023 Not Available [facility] 3 05:54:00 Changes in skin texture 172222459 Completed 202207/30/2022 Problem Code: R23.4; Problem Code Type: ICD-10; Not Available [facility] 3 05:54:01 Spasm 41261912 Completed 201603/23/2017 Problem Code: R25.2; Problem Code Type: ICD-10; EVIE RUFUS shaw, [facility] 4 10:33:28 Hyperten sive disorder 99451598 Completed 11/28/19 15 - Comments only - Ana Her MD - [facility] ed, no change in medicati ons Not Available [facility] 3 05:54:03 Arthralg ia of the ankle and/or foot 906854233 Completed 201501/30/2016 Problem Code: M25.571; Problem Code Type: ICD-10; Not Available [facility] 3 05:54:03 Dyspnea 241897063 Completed 201903/19/2020 Problem Code: R06.02; Problem Code Type: ICD-10; Danica Sechadwick shaw, [facility] 4 14:39:47 Trigger finger of right hand 42447126887 684647 Completed 201803/19/2020 Problem Code: M65.341; Problem Code Type: ICD-10; Not Available [facility] 3 05:54:06 Cough 95782236 Completed 202108/12/2021 Problem Code: R05.1; Problem Code Type: ICD-10; Not Available [facility] 3 05:54:06 At risk - finding 910910157 Completed 201811/11/2018 Problem Code: Z91.89; Problem Code Type: ICD-10; Not Available [facility] 3 05:54:06 Cough 00486068 Completed 201706/15/2017 Problem Code: R05; Problem Code Type: ICD-10; Not Available [facility] 3 05:54:07 Preopera tive cardiova scular examinat ion Completed 202112/18/2021 Problem Code: Z01.810; Problem Code Type: ICD-10; Not Available [facility] 3 05:54:08 Arterial bruit 73895712 Completed 202109/11/2021 Not Available [facility] 3 05:54:08 Gastroes ophageal reflux disease 704208045 Completed Not Available [facility] 3 05:54:09 Imaging of musculos keletal system abnormal 205935199 Completed 201603/23/2017 Problem Code: R93.7; Problem Code Type: ICD-10; Not Available [facility] 3 05:54:10 Blood glucose outside referenc e range 221410394 Completed 201503/20/2016 Problem Code: R73.09; Problem Code Type: ICD-10; Not Available [facility] 3 05:54:10 Abdomina l aortic aneurysm 476110980 Completed 195912/04/2014 Not Available [facility] 3 05:54:11 Lung field abnormal 787085785 Completed 202109/11/2021 Problem Code: R91.8; Problem Code Type: ICD-10; Not Available [facility] 3 05:54:11 Ingrowin g nail 444632454 Completed 201503/23/2017 Problem Code: L60.0; Problem Code Type: ICD-10; Not Available [facility] 3 05:54:11 Hypokale karyn 22705821 Completed 201504/17/2016 Problem Code: E87.6; Problem Code Type: ICD-10; Not Available [facility] 3 05:54:12 Spasm 08986506 Completed 202201/23/2023 Problem Code: M62.838; Problem Code Type: ICD-10; EVIE shaw [facility] 4 10:33:28 Aneurysm of ascendin g aorta 383909726 Active [address], [place], [address] , [facility] 4 19:24:51 Bicuspid aortic valve 14710125 Active 2023 severe by ECHO 07/[address], [place], [address] , [facility] 4 19:33:10 Osteopen ia 656981128 Active 2023 EVIE shaw, [facility] 4 10:28:13 Venous stasis 55786205 Active 2023 EVIE shaw, [facility] 4 10:29:14 Chronic kidney disease 303322964 Active 2017 Stage 3bA1v eGFR 42-[address], [place], [address] , [facility] 4 20:49:29 Dyspnea on exertion 61261621 Active 2018 Danica chadwick shaw, [facility] 4 14:39:44 Hiatal hernia 84983969 Completed 202108/11/2023 lap repair MD [address], [place], [address] , [facility] 4 20:51:15 Edema of lower extremit y 616994671 Active [address], [place], [address] , [facility] 4 20:55:49 Atrial fibrilla tion 94979057 Active 2016 s/p pulmonoa ry vein isolatio n 05/2018, chronic anticoag ulation with Xarelto MD [address], [place], [address] , [facility] 4 09:14:08 Obesity 722631039 Active [address] 4 09:26:22 Cardiac pacemake r in situ 512577301 Active 2023 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 MD Young [address], [address] 4 09:13:49 Swelling of bilatera l lower limbs 260624072 Active [address], [address] 14:35:13 Problem Notes None recorded. Procedures Surgical History Date Name Laterality Status Provider Name and Address Organization Details Recorded Time 10/26/19 cardiac pacemaker procedure completed MD Young [address], [address] 03/16/2024 16:33:27 10/20/19 transcatheter aortic valve implantation completed MD Young [address], [address] 03/16/2024 16:32:53 Imaging Results None recorded. Procedure Notes None recorded. Medical Equipment None Reported. Allergies Allergen ID Allergen Name Allergen Category Reaction Reaction Severity Criticality Documentation Date Start Date Code Code System Note Provider Name and Address Organization Details Recorded Time 49367 amlodipin e medicatio n swelling severe high 11/18/2023 46186 RxNorm Shaneka Herrera MA null, [facility] 13:47:28 Medications Name Sig Start Date [...] 1 tab by mouth daily 06/02 [facility] Not Available Not Available Not [...] 1 tab by mouth daily 2013 active [facility] Not Available Not Available Not Available gabapenti n 100 mg capsule Take 1 cap by mouth three times daily 2015 active Not Available Not Available Not Avai lable metoprolo l succinate ER 25 mg tablet,ex tended release 24 hr Take 1 tab by mouth daily 2017 active [facility] Not Available Not Available Not Available [...] Updated DateTime 5 164.34 cm 28.7 kg/m2 47376.3 g 97 [degF] 82 /min 18 /min 128 mm[Hg] 72 mm[Hg] KRYSTAL SKELTON LPN [facility] 13:47:58 Social History Question Answer Notes LastModified by Organizat ion Details LastModified Time Tobacco Smoking Status Never Smoker KRYSTAL SKELTON LPN [facility], [facility] 08/12/2023 07:44:55 Date Of Most Recent [...] And Wanted Help? (For Example, If You [place] Very Nervous, Lonely, Or Blue; Got Sick [...] Safety Concerns In Your Home (see Attached [facility] Pamphlet)? No Information not available 08/12/2023 [...] Details Recorded Time Pneumococcal conjugate PCV20, polysaccharide ULP287 conjugate, adjuvant, PF 4 completed MD [address], [place] [address], [facility] 08/12/2023 11:52:18 COVID-19, mRNA, LNP-S, PF, vanda-sucrose, 30 mcg/0.3 mL 4 completed MD [address], [address] 08/12/2023 11:52:18 COVID-19, mRNA, LNP-S, PF, vanda-sucrose, 30 mcg/0.3 mL 4 completed MD [address], [address] 03/04/2024 15:04:49 Tdap 1 completed Not Available [facility] 03/13/2023 06:18:37 Tdap 1 completed Not Available [facility] 03/13/2023 06:18:37 zoster live 5 completed Not Available [facility] 03/13/2023 06:18:37 Influenza, high-dose, trivalent, PF 8 completed Not Available [facility] 03/13/2023 06:18:38 Influenza, split virus, trivalent, preservative 6 completed Not Available [facility] 03/13/2023 06:18:38 Pneumococcal Conjugate, unspecified formulation 5 completed Not Available [facility] 03/13/2023 06:18:38 Influenza, split virus, quadrivalent, preservative 7 completed Not Available [facility] 03/13/2023 06:18:38 Influenza, high-dose, quadrivalent, PF 2 completed Not Available [facility] 03/13/2023 06:18:38 Influenza, high-dose, quadrivalent, PF 1 completed Not Available [facility] 03/13/2023 06:18:38 Influenza, high-dose, quadrivalent, PF 0 completed Not Available [facility] 03/13/2023 06:18:38 COVID-19, mRNA, LNP-S, PF, 100 mcg/0.5mL dose or 50 mcg/0.25mL dose 1 completed Not Available [facility] 03/13/2023 06:18:38 COVID-19, mRNA, LNP-S, PF, 100 mcg/0.5mL dose or 50 mcg/0.25mL dose 1 completed Not Available [facility] 03/13/2023 06:18:39 COVID-19, mRNA, LNP-S, PF, 100 mcg/0.5mL dose or 50 mcg/0.25mL dose 1 completed Not Available [facility] 03/13/2023 06:18:39 COVID-19, mRNA, LNP-S, bivalent, PF, 30 mcg/0.3 mL dose 2 completed Not Available [facility] 03/13/2023 06:18:39 pneumococcal polysaccharide PPV23 1 completed Not Available [facility] 03/13/2023 06:18:39 influenza, unspecified formulation 6 completed Not Available [facility] 03/13/2023 06:18:39 influenza, unspecified formulation 4 completed Not Available [facility] 03/13/2023 06:18:39 Influenza, high-dose, quadrivalent, PF 3 completed Not Available [facility] 05/15/2023 05:33:16 Past Encounters Encounter ID Performer Location Encounter Start Date Encounter Closed Date Diagnosis/Indication Diagnosis SNOMED-CT Code Diagnosis ICD10 Code Diagnosis Note [id number] ANA HER MD [place] [address] [place] [address] 05/23/2024 13:45:51 05/23/2024 14:12:00 Chronic diarrhea 443726650 K52.9 titrate up the colestipol . Referral back to GI to discuss colonoscop y Atrial fibrillation 4943 6004 I48.91 She has possible ablation scheduled and follow up with EP, will request her recent cardiovers ion admission records. Diarrhea 47600647 R19.7 Essential hypertension 49131061 I10 well controlled , no change in medication s. Hypothyroidism 14835709 E03.9 recent TSH now in range. Slightly high, but given afib and weight loss, no reason to titrate dose. Iron defic iency anemia 74137243 D50.9 s/p IV iron during her last rehab stay, both H/H and iron stores have improved. Weight loss 73117934 R63 .4 most likely due to avoiding [...] Member ID Palacio Member ID Guarantor Name 05/23/2024 1 MEDICARE [place]: [employer] Digna Allan Whitney [id number] Digna Olson 05/23/2024 2 [place] [facility] [id number] Digna Olson [id number] Digna Olson Notes Date Note Type Note Provider Name and Address Organization Details Recorded Time 05/23/2024 text/html Here for follow up of multiple problems as noted below:Labs reviewed. Atrial fibrillation-she underwent another cardioversion on May 05. Apparently has an appointment for an ablation in mid June, and to follow-up with the computer systems support specialist in [place] in July. She has been going to [...] virtual pacer checks other than visits in [place] s/p TAVR-she is sleeping in bed with [...] No longer taking oral iron. Had seen [facility] about colonoscopy due to diarrhea, but appears that was postponed due to her aortic stenosis/TAVR... repeat CBC and iron studies were reassuring, all improved. prediabetes- A1C was back in the normal range at 5.4% ANA HER MD [address], [place], [address], [place] - [facility]. 05/23/2024 15:51:12 OBGyn Episode No OBEpisode recorded.
--- OUTSIDE RECORDS SUMMARY | 2024-05-27 09:49 | XMS_ITS | Patient Health Record ---
Author Organization [facility] Address [address] [place], [place] [id number] Care Team Providers Care Circuit Clerk Name Role Phone RANDA MORATAYA Primary Care Provider VIKTOR Plaza Unavailable [phone] Allergies No Known Allergies Reason For Referral No Information Medications Medication SIG (Take, Route, Frequency, Duration) Notes Start Date End Date Status atorvastatin 40 mg 1 tab(s) orally once a day Active acetaminophen 325 mg 2 tab(s) orally rose ry 4 hours Active cyanocobalamin 1000 mcg/mL as directed intramuscularly once a month Active Colestid 1 g 2 tab(s) orally 2 ti mes a day Active Calcium 600+D 600 mg-5 mcg 1 tab(s) oral ly 3 times a day Active bacitracin topical zinc 500 units/g 1 sudheer applied topically 2 times a day Active cholecalciferol 1250 mcg 1 cap(s) orally once a week Active carvedilol 12.5 mg 1 tab(s) orally 2 ti mes a day Active Social History Tobacco Use: Social History Observation Description Date Details (start date - stop date) Never Smoker NA - NA Tobacco Use Question Answer Notes Are you a: never smoker AUDIT-C (Standard) Question Answer Notes Did you have a drink containing alcohol in the p ast year? 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) Active confirmed Vital Signs Height 5ft 4in in 02/16/2024 Weight 170 lbs 02/16/2024 BMI 29.18 02/16/2024 Encounters Encounter Location Date Provider Diagnosis [facility] [address] [place], [place] [id number] 02/16/2024 VIKTOR SANCHEZ Ingrowing nail L60.0 ; Pain in right toe(s) M79.674 and Nail dystrophy L60.3 Assessments Encounter Date Diagnosis (ICD Code) Assessment Notes Treatment Notes Treatment Clinical Notes Section Notes 02/16/2024 Ingrowing nail (ICD-10 - L60.0) 78 years old female presented today in initial visit for evaluation and treatment of painful ingrown nail tibial border right second toe. Chronic ingrown nail big toe bilaterally. Nails are thick and dystrophic first, second, third bilaterally difficult for her to render self-care. On examination there is no sign of any bacterial infection or ulceration noted bilaterally. Vascular neurological all intact. Bilateral varicosity ankle and foot. Negative Tinel sign. Negative Maxine sign. Tender to palpation billboard right second toenail. Debride and trim the toenails both manually and electrically bilateral. Wedge resection the ingrowing nail apply antibiotic ointment dressing to keep for 24 hours. Recommendation to use the Michelle nail. Follow-up appointment as needed for NCS. 02/16/2024 Pain in right toe(s) (ICD-10 - M79.674) 02/16/2024 Nail dystrophy (ICD-10 - L60.3) Plan Of Treatment No Information Insurance Providers Payer Name Payer Address Payer Phone Subscriber Number Group Number Insured Name Patient Relationship to Insured Coverage Start Date Coverage End Date MEDICARE [address] [place] [phone] [id number] KODY KIMBROUGH Self - patient is the insured [facility] [address] [place] [address] [id number] KODY KIMBROUGH Self - patient is the insured Medical (General) History Medical History History ICD Code DIABETES ARTHRITIS ANEMIAHIGH B.P. CANCER GOUT HEART SISEASE ANKLE SPRAINS Surgical History Surgery Date(Month/Year) RT. ANKLE L. 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
--- OUTSIDE RECORDS SUMMARY | 2024-05-27 09:49 | XMS_ITS ---
Author Organization [facility] Address [address] [place], [place] [id number] Care Team Providers Care Senior Insight Manager International Name Role Phone RANDA MORATAYA Primary Care Provider VIKTOR Plaza Unavailable [phone] Allergies No Known Allergies REASON FOR VISIT ING Medications Medication SIG (Take, Route, Frequency, Duration) Notes Start Date End Date Status atorvastatin 40 mg 1 tab(s) orally once a day Active acetaminophen 325 mg 2 tab(s) orally rose ry 4 hours Active cyanocobalamin 1000 mcg/mL as directed intramuscularly once a month Active Colestid 1 g 2 tab(s) orally 2 ti mes a day Active cholecalciferol 1250 mcg 1 cap(s) orally once a week Active Calcium 600+D 600 mg-5 mcg 1 tab(s) oral ly 3 times a day Active bacitracin topical zinc 500 units/g 1 sudheer applied topically 2 times a day Active carvedilol 12.5 mg 1 tab(s) orally [...] W/U Status Risk Notes Problem Ingrowing nail (193026859) Ingrowing nail (L60.0) Active confirmed Problem Pain in limb (66387815) Pain in right toe(s) (M79.674) Active confirmed Problem Nail dystrophy (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 [place], [place] [phone] 02/16/2024 VIKTOR SANCHEZ Ingrowing nail L60.0 ; [...] dystrophy (ICD-10 - L60.3) Plan Of Treatment Treatment Notes Assessment Notes Ingrowing nail 78 years old female presented today in [...] nail. Follow-up appointment as needed for NCS. Next Appt Details Follow Up: PRN, NCS., Reason : Progress Notes * KODY KIMBROUGHDOB:1945 (78 yo F)Acc No.[id number]:02/16/2024 New Patient Notes Patient:?KODY KIMBROUGH Provider:?Gloria Sanchez D.P.M., Tangela Gonzalez :1945???Age:78 Y???Sex:Female D ate:02/16/2024 Address:[address] [place], [place] [phone] Pcp:RANDA MORATAYA Subjective: * Chief Complaints: * ???1. ING. * HPI: ???Ingrown Nail:?Pain?Present, Pt. think she has IGN on Bilat. Hallux. pt. hurt her R. hallux nail when trying to do her regular nails cut. Is dark color now. 2nd toe hurt as well.?history of ingrown nails?no.?drainage from nail border?No. draining pt. said. but?Nail is dark.?trauma?Pt. cut her nail to short and Hurt her self.?Prior treatment?Topical abx. Ointment, and trying to keep area clean and dry.?Present Treatment?no.?Improvment?no, and L. Hallux hurt to.?Location?Bilat. Hallux.? R.Halllux??Bilat. Border/ L. hallux T. Border..? * ROS:?Musculoskeletal:?Joint redness?Joint Pain.?Sciatica?YES.?Neck Pain?no.?Back Pain?YES.?Dermatology:?Rash?no.?Itching?no.?Moles?Present.?Neurology:?Tremor?no.?Dizziness?no.?Tingling numbness?YES.?Gastroenterology:?Nausea?Yes, Vomitting.?Hepatitis/Jaundice?no.?Heartburn?no.?Vomiting?no.?Abdominal pain?no.?Cardiology:?Chest pain?no.?Varicose Veins?no.?Phlebitis?no.?High Blood Pressure?no.?Claudication?no.?Constitutional:?Fever?no.?Weight loss?no.?Chills?no.?Headache?no.?ENT:?Hearing loss?hard of earing.?Opthamology:?Blurring of vision?no.?Vision loss?Poor vision.?Respiratory:?Shortness of breath?no.?Wheezing?no.?Endocrinology:?Fatigue?Tired / Sluggish.?Excessive thirst?no.?Excessive urination?no.?Cold intolerance?no.?Heat intolerence?no.?Hematology/Lymph:?Swollen glands?no.?Blood Clotting Problems?no.?Psychology:?High stress level?no.?Depression?no.?Are you Generally Satisfied With Your Life ??yes.?Allergy:?Hay Fever?no.? * Medical History:?DIABETES, A RTHRITIS, ANEMIAHIGH B.P., CANCER, GOUT, HEART SISEASE, ANKLE SPRAINS. * Surgical History:?RT. ANKLE , L. WRIST FX , GALL BLADDER , BREAST CA , PRASANNA FOUNOPLASTY , TAVR PACE MAKER . * Family History:?Father: dece ased, diagnosed with Neoplasm, malignant, of other unspecified site.?Mother: , Kidney disease.? * Social History:?Tobacco Use? Are you a:?never smoker.?AUDIT-C (Standard)?Did you have a drink containing alcohol in the past year??No,?Points?0,?Interpretation?Negative.? * Medications:?Taking cyanocob alamin 1000 mcg/mL solution as directed intramuscularly once a month , Taking Colestid 1 g tablet 2 tab(s) orally 2 times a day , Taking cholecalciferol 1250 mcg capsule 1 cap(s) orally once a week , Taking carvedilol 12.5 mg tablet 1 tab(s) orally 2 times a day , Taking Calcium 600+D 600 mg-5 mcg tablet 1 tab(s) orally 3 times a day , Taking bacitracin topical zinc 500 units/g ointment 1 sudheer applied topically 2 times a day , Taking atorvastatin 40 mg tablet 1 tab(s) orally once a day , Taking acetaminophen 325 mg tablet 2 tab(s) orally every 4 hours * Allergies:?N.K.D.A. Objective: * Vitals:?Wt: 170 lbs, Ht: 5ft 4in, BMI:29.18. * Examination: ???General examination: ?General appearance:?pleasant, WD NAD.?Vascular: ?Dorsalis Pedis Pulse?Present, Bilat.?Posterior Tibial Pulses:?Present, Bilat.?Temp Gradient?Normal, Bilat.?cap fill time?under 3 seconds b/l.?Hair Growth:?Present, Bilat.?Ischemia:?Absent, Bilat.?Varicosity:?Absent, Bilat.?Calf Pain?Absent, Bilat.?Edema:?Absent, Bilat.?Erythema?Absent, Bilat.?Infection?Absent, Bilat.?Cellulitis?absent.?Abscess?absent, bilat.?ULcer?absent, bilat.?Wound?absent.?Vasculitis?absent.?Neurology: ?Sharp/Dull:?Present, Bilat.?Light Touch:?Present, Bilat.?Tinel Sign?Absent, Bilat.?Maxine's Sign:?Absent, Bilat.?Musculoskeletal: ?Foot Type:?Pes Planus. Pronated, bilaterally..?Nail Pathology: ?Dystrophic?present bilaterally most of the toenails..?Thickening?present bilaterally first, second, third toenails..?Chronic ingrowing toenail?present to bill border right second toe.? There is a hard corn underneath the nail..?Derm: ?Clubbing:?Absent, Bilat.?Cyanosis:?Absent, Bilat.?Interdigital Maceration:?Absent, Bilat.? Assessment: * Assessment: 1.?Ingrowing nail - L60.0 (P rimary)???2.?Pain in right toe(s) - M79.674???3.?Nail dystrophy - L60.3??? Plan: * Treatment: * Follow Up:?PRN, NCS. * Images: * Electronic signature of NUVIA SANCHEZ DPM on 05/27/2024 at 09:48 AM EST Sign off status: Pending * Provider:?Gloria Sanchez D.P.M., Osvaldo.VasquezAMiladS. Date:?02/16/2024 Generated for Rayshawn salazar/Kailyn/eTransmitting on:?05/27/2024 09:48 AM EST History and Physical Notes * HPI (History of Present Illness) Category Sub-Category Detail Notes Category Not es Ingrown Nail history of ingrown nails no drainage from nail border No. draining p t. said. but Nail is dark trauma Pt. cut her nail to short and Hurt her self Prior treatment Topical abx. Ointmen t, and trying to keep area clean and dry Pain Present, Pt. think s he has IGN on Bilat. Hallux. pt. hurt her R. hallux nail when trying to do her regular nails cut. Is dark color now. 2nd toe hurt as well Improvment no, and L. Hallux hu rt to Present Treatment no Location Bilat. Hallux. R.Mario llux Bilat. Border/ L. hallux T. Border. Examination Category Sub-Category Detail Notes Category Not es General examination General appearance: pleasant, WD N AD Vascular Posterior Tibial Pulses: Present, Bilat Temp Gradient Normal, Bilat Hair Growth: Present, Bilat Ischemia: Absent, Bilat Varicosity: Absent, Bilat Edema: Absent, Bilat Dorsalis Pedis Pulse Present, Bilat Infection Absent, Bilat ULcer absent, bilat Wound absent Abscess absent, bilat Erythema Absent, Bilat cap fill time under 3 seconds b/l Cellulitis absent Calf Pain Absent, Bilat Vasculitis absent Neurology Sharp/Dull: Present, Bilat Light Touch: Present, Bilat Tinel Sign Absent, Bilat Maxine's Sign: Absent, Bilat Musculoskeletal Foot Type: Pes Planus. Pronated, caryl aterally. Derm Clubbing: Absent, Bilat Cyanosis: Absent, Bilat Interdigital Maceration: Absent, Bilat Nail Pathology Dystrophic present bilaterally most o f the toenails. Chronic ingrowing toenail present to caryl l border right second toe. There is a hard corn underneath the nail. Thickening present bilaterally first, second, third toenails.
--- OUTSIDE RECORDS SUMMARY | 2024-05-27 09:50 | XMS_ITS | Encounter Summary ---
Author Organization [facility] [place] [address] Care Team Providers Care Airbrush Artist Photography Name Role Phone Ana Her MD Primary Care Provider [phone] Encounter Details Date Type Department Care Team (Late st Contact Info) Description 03/09/2022 Telephone [place] [address] Prakash Mendez MD [facility] [address] [place] [address] Social History Tobacco Use Types Packs/Day Years [...] the mobile number listed in her chart ([phone]). Her other daughter answered the phone and reported that she had just dropped her off in the Emergency Department at [facility] and parked the car. She was walking back to the building to be with her. I reassured her that going to the Emergency Department seemed like a reasonable plan. I assured her that we are always happy to see her here at [facility] anytime and that they could call back anytime with further questions or concerns. This note will be routed to the provider mentioned above. Prakash Mendez MD documented in this encounter Plan of Treatment Not on file documented as of this encounter Visit Diagnoses Not on filedocumented in this encounter Care Teams Airbrush Artist Photography Relationship Specialty Start Date End Date Ana Her MD [address] [place] [address] PCP - General 07/29/13 documented as of this encounter
--- OUTSIDE RECORDS SUMMARY | 2024-05-27 09:50 | XMS_ITS | Encounter Summary ---
Author Organization [facility] [place] [address] Care Team Providers Care Straddle Carrier Operator Name Role Phone Ana Her MD Primary Care Provider [phone] Encounter Details Date Type Department Care Team (Late st Contact Info) Description 03/09/2022 11:00 PM EST Ancillary Procedure Radiology Library at [facility] [place] [id number] Ana Her MD [address] [place] [address] [facility] [address] [place], [place] [id number] Social History Tobacco Use Types Packs/Day Years [...] CT Chest (03/09/2022 10:56 PM EST) Narrative [facility] - 03/09/2022 10:56 PM EST This exam is auto-finalizing. It's purpose is for storage only. Ana Her MD IM FILM LIBRARY ORD ERABLES [place], [place] documented in this encounter Visit Diagnoses Not on filedocumented in this encounter Care Teams Straddle Carrier Operator Relationship Specialty Start Date End Date Ana Her MD [address] [facility] [address] [place] [address] PCP - General 07/29/13 documented as of this encounter
--- OUTSIDE RECORDS SUMMARY | 2024-05-27 09:50 | XMS_ITS | Continuity of Care Document ---
Author Organization [facility] [place] [address] Care Team Providers Care Analyst Market Intelligence Name Role Phone GABINODC Tangible Personal Property Appraiser [facility] Orthopedic Surgeon [facility] Sleep Medicine [facility] Bark Skinner Assessment Encounter Date Assessment Date Assessment LastModified by Organization Details LastModified Time 03/04/2024 03/04/2024 The total time devoted to today's encounter, including both the casi-sw-cefp time with the patient and/or family/caregi josefina and ywf-prtm-go-f patrick time I personally spent is 44 minutes. Not available 03/04/2024 17:47:18 Plan of Treatment Reminders Order Date Submit Date Provider Last Modified By Organization Details Last Modified Time Details Appointments None recorded. Lab BMP, serum or plasma [address] [facility] (Registration ), [address] [place] [address] [place], [address], 4 11:42:49 vitamin D, 25-hydroxy, total, serum [address] [facility] (Registration ), [address] [place] [address] [place], [address], 4 16:09:19 HbA1c (hemoglobin A1c), blood [address] [facility] (Registration ), [address] [place] [address] [place], [address], 4 11:39:49 TSH, serum, reflex free T4 [address] [facility] (Registration ), [address] [place] [address] [place], [address], 4 11:40:[address] [facility] (Registration ), [address] [place] [address] [place], [address], 4 15:08:25 ferritin, serum or plasma [address] [facility] (Registration ), [address] [place] [address] [place], [address], 4 11:41:22 iron + total iron-bindin g capacity (TIBC), serum 2023 [facility] (Registration ), [address] [place] [address] [place], [address], 4 11:43:17 Referral None recorded. Procedures None recorded. Surgeries None recorded. Imaging None recorded. Medication Orders hydromorpho ne 2 mg tablet 2023 [facility], [address] [place], [address], 4 15:12:30 levothyroxi ne 75 mcg tablet 2023 024 [facility], [address] [place], [address], 4 16:32:19 Patient TargetsNo targets recorded. Patient InstructionsNo instructions recorded. 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 None Reported. Problems Name Problem SNOMED Code Status Onset Date Resolution Date Notes Provider Name and Address Organization Details Recorded Time Osteopor otic fracture Active 2023 Zoledron ate started at time of humeral fracture 2023- MD [address], [place], [address] , [facility] 4 17:34:10 Hypothyr oidism 40102341 Active 1959 EVIE VIRAMONTESUE [facility], [facility] 4 10:29:59 [facility] l hyperten jason 69326745 Active 1959 EVIE RUFUS shaw, [facility] 4 10:29:36 Hyperlip idemia 19973927 Active 1959 on statin MD [address], [place], [address] , [facility] 4 20:35:18 Spinal stenosis of lumbar region 55284889 Active 2012 s/p lumbar foramino parish L4 MD [address], [place], [address] , [facility] 4 20:36:41 Sleep apnea 87573935 Active 2012 on CPAP MD [address], [place], [address] , [facility] 4 20:39:31 Gastroes ophageal reflux disease without esophagi tis 035021577 Completed 195908/12/2023 Removal Reason: resolved with surgical repair of HH MD [address], [place], [address] , [facility] 4 10:41:24 Family history of malignan t neoplasm of digestiv e organ 282977243 Active [address], [place], [address] , [facility] 4 20:37:03 Paresthe samir 85729081 Completed 201412/01/2014 11/28/19 15 - Comments only - Ana Her MD - check B12 and folate Problem Code: R20.2; Problem Code Type: ICD-10; Not Available [facility] 3 05:53:48 Adult health examinat ion Active [address], [place], [address] , [facility] 4 20:33:34 Pre-surg ruben evaluati [...] Code Type: ICD-10; Not Available [facility] 3 05:53:48 Localize d edema 068975728 Completed 201501/29/2016 12/13/19 16 - Comments only - Ana Her MD - and some on left as well, will check BMP. 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 Nusrat holtk for removal. Problem Code: L72.3; Problem Code Type: ICD-10; Not Available [facility] 3 05:53:49 Chronic ulcer of foot 994196629 Completed 201601/16/2017 12/18/19 17 - Comments only - Ana Her MD - Due to injury. This does appear to have some granulat ion tissue and to be healing. She is given a prescrip tion for Keflex to take only if erythema seems to be extendin g. Problem Code: L97.509; Problem Code Type: ICD-10; Not Available [facility] 3 05:53:49 Diarrhea 30654367 Completed 201602/10/2017 02/05/20 17 - Comments only - Ana Her MD - Persiste nt over several months, we will collect stool for C. 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 6 mm PT1NO E2P2 poistive , HER2 negative MD [address], [place], [address] , [facility], [facility] 4 20:38:49 Pain in left lower limb 196641975 Active 2016 EVIE shaw, [facility]. 4 10:32:00 Pain in thoracic spine 620429126 Active 2016 EVIE shaw, [facility] 4 10:32:06 Spasm 91086280 Active 2017 EVIE shaw, [facility] 4 10:33:28 Abdomina l distensi on, gaseous 774645606 Completed 201703/08/2018 Problem Code: R14.0; Problem Code Type: ICD-10; Not Available [facility] 3 05:53:50 Cellulit is of toe 31864589 Completed 201808/12/2018 Problem Code: L03.039; Problem Code Type: ICD-10; Not Available [facility] 3 05:53:51 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 2018 Danica shaw, [facility] 4 14:36:02 Tachycar lea 7275544 Completed 201811/25/2018 Problem Code: R00.0; Problem Code Type: ICD-10; Not Available [facility] 3 05:53:51 Pre-surg ruben evaluati on Completed 201811/25/2018 Problem Code: Z01.818; Problem Code Type: ICD-10; Not Available [facility] 3 05:53:51 Iron deficien cy anemia 27076972 Active 2019 elevated MCV: normal B12 2021, normal folate 2018 IV iron 2023 EGD 01/2022 paraesop hageal hernia (since repaired ) colo 03/[address] MD [address], [place], [address] , [facility]. 4 11:44:45 Lumbago with sciatica 785824675 Completed 201903/16/2020 02/24/20 20 - Comments only - Vy Pinon CONFERENCE DIRECTOR - Likely aggravat ed by increase d [...] Code Type: ICD-10; Not Available [facility] 3 05:53:52 Right side sciatica 98158515995 9101 Active 2019 EVIE HOOPER [facility] 4 10:33:09 Left side sciatica 12668736230 9104 Active [address], [place], [address] , [facility] 4 17:20:20 Diaphrag matic hernia 34920233 Completed 202108/11/2023 Removal Reason: s/p repair MD [address], [place], [address] , [facility] 4 20:50:39 History of SARS-CoV -2 99500990190 4941088 Completed 202104/04/2022 03/21/20 22 - Comments only - Ana Her MD - testing is negative today in the office. Still some fatigue but otherwis e recoveri ng. Did get MAB. Already had covid bivalent booster prior to illness Problem Code: Z86.16; Problem Code Type: ICD-10; Not Available [facility] 3 05:53:53 Diarrhea 46912943 Completed 202104/18/2022 Problem Code: R19.7; Problem Code Type: ICD-10; MD [address], [place], [address] , [facility] 4 21:03:02 Screenin g mammogra phy Completed 202208/11/[address], [place], [address] , [facility] 4 20:36:56 Carpal tunnel syndrome of left wrist 71319985387 9102 Completed 202201/23/2023 Problem Code: G56.02; Problem Code Type: ICD-10; Not Available [facility] 4 05:37:46 Diarrhea 13172752 Active 2022 started colestip ol 01/[address], [place], [address] , [facility] 4 21:03:02 Carpal tunnel syndrome of right wrist 81993028636 9108 Completed 201803/19/2020 Problem Code: G56.01; Problem Code Type: ICD-10; Not Available [facility] 3 05:53:55 Pain of left knee joint 28506214561 4107 Completed 202107/30/2022 Problem Code: M25.562; Problem Code Type: ICD-10; Not Available [facility] 3 05:53:55 Hypersom korina 81067118 Completed 201311/27/2014 Problem Code: 780.54; Problem Code Type: ICD-9; Not Available [facility] 3 05:53:56 Screenin g for disorder Completed 201909/11/2021 Problem Code: Z13.9; Problem Code Type: ICD-10; Not Available [facility] 3 05:53:56 Anemia 089689962 Completed 201903/19/2020 Problem Code: D64.9; Problem Code Type: ICD-10; Not Available [facility] 3 05:53:56 Long-ter m current use of anticoag ulant 322903015 Completed 201709/01/2018 Problem Code: Z79.01; Problem Code Type: ICD-10; Not Available [facility] 3 05:53:57 Chronic rhinitis 19122572 Completed 202108/12/2021 Problem Code: J31.0; Problem Code Type: ICD-10; Not Available [facility] 3 05:53:57 Impaired fasting glycemia 193968531 Completed 201401/28/2023 Not Available [facility] 3 05:53:57 Fatigue 04545806 Completed 201903/19/2020 Problem Code: R53.83; Problem Code Type: ICD-10; Not Available [facility] 3 05:53:58 Upper respirat ory tract infectio n caused by Influenz a A 43317696081 9104 Completed 201707/02/2017 Problem Code: J09.x2; Problem Code Type: ICD-10; Not Available [facility] 3 05:53:59 Diarrhea 17741914 Completed 201709/01/2018 ANA HER MD [facility] [address], [place], [address] , [facility]. 4 21:03:02 Acute upper respirat ory infectio n 16541500 Completed 202108/26/2021 Problem Code: J06.9; Problem Code Type: ICD-10; Not Available [facility] 3 05:53:59 Pain in right foot 48826831762 9107 Completed 202207/30/2022 Problem Code: M79.671; Problem Code Type: ICD-10; Not Available [facility] 3 05:54:00 Breast composit ion 029207107 Completed 201601/28/2023 Not Available [facility] 3 05:54:00 Changes in skin texture 718697646 Completed 202207/30/2022 Problem Code: R23.4; Problem Code Type: ICD-10; Not Available [facility] 3 05:54:01 Spasm 30861656 Completed 201603/23/2017 Problem Code: R25.2; Problem Code Type: ICD-10; EVIE RUFUS shaw, [facility] 4 10:33:28 Hyperten sive disorder 60083961 Completed 11/28/19 15 - Comments only - Ana Her MD - [facility] ed, no change in medicati ons Not Available [facility] 3 05:54:03 Arthralg ia of the ankle and/or foot 098892376 Completed 201501/30/2016 Problem Code: M25.571; Problem Code Type: ICD-10; Not Available [facility] 3 05:54:03 Dyspnea 886155421 Completed 201903/19/2020 Problem Code: R06.02; Problem Code Type: ICD-10; Danica Felix colin, [facility] 4 14:39:47 Trigger finger of right hand 46618571693 929172 Completed 201803/19/2020 Problem Code: M65.341; Problem Code Type: ICD-10; Not Available [facility] 3 05:54:06 Cough 52258858 Completed 202108/12/2021 Problem Code: R05.1; Problem Code Type: ICD-10; Not Available [facility] 3 05:54:06 At risk - finding 469376900 Completed 201811/11/2018 Problem Code: Z91.89; Problem Code Type: ICD-10; Not Available [facility] 3 05:54:06 Cough 28219628 Completed 201706/15/2017 Problem Code: R05; Problem Code Type: ICD-10; Not Available [facility] 3 05:54:07 Preopera tive cardiova scular examinat ion Completed 202112/18/2021 Problem Code: Z01.810; Problem Code Type: ICD-10; Not Available [facility] 3 05:54:08 Arterial bruit 65809356 Completed 202109/11/2021 Not Available [facility] 3 05:54:08 Gastroes ophageal reflux disease 198556893 Completed Not Available [facility] 3 05:54:09 Imaging of musculos keletal system abnormal 035588771 Completed 201603/23/2017 Problem Code: R93.7; Problem Code Type: ICD-10; Not Available [facility] 3 05:54:10 Blood glucose outside referenc e range 075423874 Completed 201503/20/2016 Problem Code: R73.09; Problem Code Type: ICD-10; Not Available [facility] 3 05:54:10 Abdomina l aortic aneurysm 912866766 Completed 195912/04/2014 Not Available [facility] 3 05:54:11 Lung field abnormal 194075316 Completed 202109/11/2021 Problem Code: R91.8; Problem Code Type: ICD-10; Not Available [facility] 3 05:54:11 Ingrowin g nail 435658769 Completed 201503/23/2017 Problem Code: L60.0; Problem Code Type: ICD-10; Not Available [facility] 3 05:54:11 Hypokale karyn 80785143 Completed 201504/17/2016 Problem Code: E87.6; Problem Code Type: ICD-10; Not Available [facility] 3 05:54:12 Spasm 40286909 Completed 202201/23/2023 Problem Code: M62.838; Problem Code Type: ICD-10; EVIE shaw [facility] 4 10:33:28 Aneurysm of ascendin g aorta 968837787 Active [address], [place], [address] , [facility] 4 19:24:51 Bicuspid aortic valve 56417421 Active 2023 severe by ECHO 07/[address], [facility] [address] , [facility] 4 19:33:10 Osteopen ia 264936282 Active 2023 EVIE shaw, [facility] 4 10:28:13 Venous stasis 70427514 Active 2023 EVIE shaw, [facility] 4 10:29:14 Chronic kidney disease 960723570 Active 2017 Stage 3bA1v eGFR 42-[address], [place], [address] , [facility] 4 20:49:29 Dyspnea on exertion 16863459 Active 2018 Danica shaw, [facility] 4 14:39:44 Hiatal hernia 46980978 Completed 202108/11/2023 lap repair MD [address], [place], [address] , [facility] 4 20:51:15 Edema of lower extremit y 000157280 Active [address], [place], [address] , [facility] 4 20:55:49 Atrial fibrilla tion 10021736 Active 2016 s/p pulmonoa ry vein isolatio n 05/2018, chronic anticoag ulation with Xarelto MD [address], [place] [address] 4 09:14:08 Obesity 479453661 Active [address], [address] 4 09:26:22 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 MD [address], [address] 4 09:13:49 Swelling of bilatera l lower limbs 352750017 Active [address], [address] 14:35:13 Problem Notes None recorded. Procedures Surgical History Date Name Laterality Status Provider Name and Address Organization Details Recorded Time 10/26/19 cardiac pacemaker procedure completed MD [address], [address] 03/16/2024 16:33:27 10/20/19 transcatheter aortic valve implantation completed MD [address], [address] 03/16/2024 16:32:53 Imaging Results None recorded. Procedure Notes None recorded. Medical Equipment None Reported. Allergies Allergen ID Allergen Name Allergen Category Reaction Reaction Severity Criticality Documentation Date Start Date Code Code System Note Provider Name and Address Organization Details Recorded Time 40365 amlodipin e medicatio n swelling severe high 11/18/2023 63535 RxNorm HIRA Hodge, [facility] 13:47:28 Medications Name Sig Start Date Stop [...] 1 tab by mouth daily 06/02 completed [facility] Not Available Not Available Not Available [...] 1 tab by mouth daily 2013 active [facility] Not Available Not Available Not Available gabapenti n 100 mg capsule Take 1 cap by mouth three times daily 2015 active Not Available Not Available Not Avai lable metoprolo l succinate ER 25 mg tablet,ex tended release 24 hr Take 1 tab by mouth daily 2017 active [facility] Not Available Not Available Not [...] Updated DateTime 4 164.34 cm 29.1 kg/m2 17247.4 8 g 97.7 [degF] 96 % 96 % 104 /min 18 /min 120 mm[Hg] 74 mm[Hg] KRYSTAL SKELTON LPN [facility] 14:18:40 Social History Question Answer Notes LastModified by Organizat ion Details LastModified Time Tobacco Smoking Status Never Smoker KRYSTAL SKELTON LPN [facility], [facility] 08/12/2023 07:44:55 Date Of Most Recent HSA [...] And Wanted Help? (For Example, If You [place] Very Nervous, Lonely, Or Blue; Got Sick [...] Details Recorded Time Pneumococcal conjugate PCV20, polysaccharide GSK315 conjugate, adjuvant, PF 4 completed MD [address], [address] 08/12/2023 11:52:18 COVID-19, mRNA, LNP-S, PF, vanda-sucrose, 30 mcg/0.3 mL 4 completed MD [address], [address] 08/12/2023 11:52:18 COVID-19, mRNA, LNP-S, PF, vanda-sucrose, 30 mcg/0.3 mL 4 completed MD [address], [address] 03/04/2024 15:04:49 Tdap 1 completed Not Available [facility] 03/13/2023 06:18:37 Tdap 1 completed Not Available [facility] 03/13/2023 06:18:37 zoster live 5 completed Not Available [facility] 03/13/2023 06:18:37 Influenza, high-dose, trivalent, [...] PF 2 completed Not Available [facility] 03/13/2023 06:18:38 Influenza, high-dose, quadrivalent, PF 1 completed Not Available [facility] 03/13/2023 06:18:38 Influenza, high-dose, quadrivalent, PF 0 completed Not Available [facility] 03/13/2023 06:18:38 COVID-19, mRNA, LNP-S, PF, 100 mcg/0.5mL dose or 50 mcg/0.25mL dose 1 completed Not Available [facility] 03/13/2023 06:18:38 COVID-19, mRNA, LNP-S, PF, 100 mcg/0.5mL dose or 50 mcg/0.25mL dose 1 completed Not Available [facility] 03/13/2023 06:18:39 COVID-19, mRNA, LNP-S, PF, 100 mcg/0.5mL dose or 50 mcg/0.25mL dose 1 completed Not Available [facility] 03/13/2023 06:18:39 COVID-19, mRNA, LNP-S, bivalent, PF, 30 mcg/0.3 mL dose 2 completed Not Available [facility] 03/13/2023 06:18:39 pneumococcal polysaccharide PPV23 1 completed Not Available [facility] 03/13/2023 06:18:39 influenza, unspecified formulation 6 completed Not Available [facility] 03/13/2023 06:18:39 influenza, unspecified formulation 4 completed Not Available [facility] 03/13/2023 06:18:39 Influenza, high-dose, quadrivalent, PF 3 completed Not Available [facility] 05/15/2023 05:33:16 Past Encounters Encounter ID Performer Location Encounter Start Date Encounter Closed Date Diagnosis/Indication Diagnosis SNOMED-CT Code Diagnosis ICD10 Code Diagnosis Note [id number] ANA HER MD [address] [place] [address] 03/04/2024 14:02:04 03/04/2024 15:12:46 Active or passive immunization 986038456 Z23 Hypothyroidism 05535253 E03.9 dose lowered during hospital or rehab stay, will repeat TSH in few months. Osteoporotic fracture 46 221922 M80.00XD received first dose of zoledronic acid [...] to next visit. Iron defic iency anemia 56745087 D50.9 Did receive some IV iron, unclear how many doses. No longer taking oral iron. Had seen [facility] about colonoscop y due to diarrhea, but appears that was postponed due to her aortic stenosis/T AVR... will repeat CBC and iron studies in few months, if falling again will need to consider GI workup for blood loss. Chronic ki dney disease 378731764 N18.9 Prediabetes 686162787 R7 3.03 Health Concerns Section Related Observation LastModified by Organization Detai ls LastModified Time None Recorded Concern Status LastModified by Organization Details LastModified Time None Recorded Payers Encounter Date Sequence Insurance Name Policy Number Policy Palacio Covered Member ID Palacio Member ID Guarantor Name 03/04/2024 1 [place] [employer] Digna Olson [id number] Digna Olson 03/04/2024 2 [place] [facility] [id number] Digna Olson [id number] Digna Lemus Whitney Notes Date Note Type Note Provider Name and Address Organization Details Recorded Time 03/04/2024 text/html Pt was admitted to [facility] 12/10-12/16 with fall and humeral [...] TAVR. ANA HER MD [address], [place], [address], [facility]. 03/04/2024 17:49:41 OBGyn Episode No OBEpisode recorded.
--- OUTSIDE RECORDS SUMMARY | 2024-05-27 09:50 | XMS_ITS | Encounter Summary ---
Author Organization [facility] [place] [address] Care Team Providers Care Lpn Cma Name Role Phone Ana Her MD Primary Care Provider [phone] Encounter Details Date Type Department Care Team (Late st Contact Info) Description 03/10/2022 1:35 AM EST Ancillary Procedure Radiology Library at [facility] [place] [address] Ana Her MD [address] [place] [address] [facility] [address] [place], [place] [id number] Social History Tobacco Use Types Packs/Day Years [...] CT Chest (03/10/2022 1:31 AM EST) Narrative [facility] - 03/10/2022 1:31 AM EST This exam is auto-finalizing. It's purpose is for storage only. Ana Her MD IM FILM LIBRARY ORD ERABLES [place], [place] documented in this encounter Visit Diagnoses Not on filedocumented in this encounter Care Teams Lpn Cma Relationship Specialty Start Date End Date Ana Her MD [facility] JAY HOGAN [facility] [address] [place] [address] PCP - General 07/29/13 documented as of this encounter
--- OUTSIDE RECORDS SUMMARY | 2024-05-27 09:50 | XMS_ITS | Encounter Summary ---
Author Organization [facility] [place] [address] Care Team Providers Care Asset Protection Associate Name Role Phone Ana Her MD Primary Care Provider [phone] Encounter Details Date Type Department Care Team (Latest Contact Info) Description 01/23/2022 12:15 PM EDT TH Visit (TeleHealth) [place] [address] Laura Will MD [facility] [place] [address] Paraesophageal hernia Social History Tobacco Use Types [...] her. She is followed by cardiology at [facility], and is on xarelto. Impression: Symptomatic paraesophageal [...] gangrene documented in this encounter Care Teams Asset Protection Associate Relationship Specialty Start Date End Date Ana Her MD [address] [facility] [address] [place] [address] PCP - General 07/29/13 documented as of this encounter
--- OUTSIDE RECORDS SUMMARY | 2024-05-27 09:50 | XMS_ITS | Encounter Summary ---
[place] [address] Care Team Providers Care Driller Hand Name Role Phone Ana Her MD Primary Care Provider [phone] Reason for Visit * Auth/Cert Specialty Diagnoses / Procedures Referred By Christiano hackett Referred To Contact Diagnoses S/P repair of paraesophageal hernia Post-Op monitoring Procedures PRO LAPARSCOPY REPAIR PARAESOPHAGEAL HERNIA INCL FUNDOPLASTY W/O MESH LAPAROSCOPIC PARAESOPHAGEAL HERNIA REPAIR W/FUNDOPLASTY, W/O MESH (WRVU 26.6) MODIFIER TOUPET FUNDOPLASTY Laura Will MD [facility] [address] [place] [address] [facility] Referral ID Status Reason Start Date Expiration Date Visits Re quested Visits Authorized [id number] 1 1 Encounter Details Date Type Department Care Team (Late st Contact Info) Description 03/05/2022 1:58 PM EDT Anesthesia Event [place] [id number] Alisa Naqvi MD [facility] DR ANESTHESIOLOGY [place] [address] Alessia Ramirez APR[place] [address] Anesthesia Record Procedure Summary Procedure Name Responsible [...] Summary Date: 03/05/22 Room / Location: [address] MAIN OR Anesthesia Start: 8 Anesthesia Stop: 1823 Procedures: LAPAROSCOPIC PARAESOPHAGEAL HERNIA REPAIR W/FUNDOPLASTY, W/O MESH (WRVU 26.6) (N/A Abdomen) MODIFIER TOUPET FUNDOPLASTY (N/A Abdomen) Diagnosis: (Paraesophageal Hernia) Surgeons: Laura Will MD Responsible Provider: Alisa Naqvi MD Anesthesia Type: general ASA Status: 3 All Anesthesia Providers: Anesthesiologist: Brayan Hubbard MD; Alisa Naqvi MD; Dario Franco MD Extraction Machine Operator: Mo Vance DO Vitals Value Taken Time BP 125/75 03/05/22 1821 Temp Pulse 77 03/05/22 1823 Resp 18 03/05/22 1823 SpO2 100 % 03/05/22 182 Pain Level Vitals shown include unvalidated device data. Patient Location: PACU/[facility] Level of Consciousness: Awake and Alert [...] of left breast of female, estrogen receptor [id number]/25/2017 ??? Bicuspid aortic valve 06/10/2016 ??? Dyspnea [...] [facility] MAIN OR ??? PRO MASTECTOMY PARTIAL Left 03/30/2017 MASTECTOMY PARTIAL (WRVU 10.13) performed by Malika Chen MD at [facility] MAIN OR ??? PRO UPPER GI ENDOSCOPY, DIAGNOSTIC N/A 01/08/2022 EGD, UPPER GI ENDOSCOPY performed by Laura Will MD at [facility] MAIN OR Social History Tobacco Use [...] PONV ppx Mo Shreyas DO Pinky 03/04/2022 Electromechanical Equipment Tester Pager #[phone] Region - Other Informed Consent: Anesthetic plan [...] 45%. Wall motion normal. ?? Echo 06/19/21 ([facility] General): normal biventricular size and function, symmetric [...] 1 view ?? Followed by cardiology at [facility], notes under Care Everywhere. Last [...] mg documented in this encounter Care Teams Driller Hand Relationship Specialty Start Date End Date Ana Her MD [address] [facility] [address] [place] [address] PCP - General 07/29/13 documented as of this encounter
--- OUTSIDE RECORDS SUMMARY | 2024-05-27 09:50 | XMS_ITS | Continuity of Care Document ---
Author Organization [place] [facility], [facility] [place] [address] Care Team Providers Care Casting Carrier Name Role Phone GABINODC Import Clerk [facility] Orthopedic Surgeon [phone] [facility] Sleep Medicine [facility] Front Office Clerk Assessment No assessment recorded. Plan of Treatment Reminders Order Date Submit Date Provider Last Modified By Organization Details Last Modified Time Details Appointments None recorded. Lab BMP, serum or plasma 2023 024 [facility] (Registration ), [address] [place] [address] [place], [address], 4 11:42:49 vitamin D, 25-hydroxy , total, serum 2023 024 [facility] (Registration ), [address] [place] [address] [place], [address], 4 16:09:19 HbA1c (hemoglobi n A1c), blood 2023 024 [facility] (Registration ), [address] [place] [address] [place], [address], 4 11:39:49 TSH, serum, reflex free T4 2023 024 [facility] (Registration ), [address] [place] [address] [place], [address], 4 11:40:25 CBC 2023 024 [facility] (Registration ), [address] [place] [address] Dr [facility] [place], [address], 4 15:08:25 ferritin, serum or plasma 2023 024 [facility] (Registration ), [address] [place] [address] [place], [address], 4 11:41:22 iron + total iron-lynn ng capacity (TIBC), serum 2023 024 [facility] (Registration ), [address] [place] [address] [place], [address], 4 11:43:17 Referral None recorded. Procedures None [...] humeral fracture 2023- MD [address], [place], [address] , [facility] 4 17:34:10 Hypothyr oidism 27027344 Active 1959 EVIE shaw, [facility] 4 10:29:59 [facility] hyperten jason 53466325 Active 1959 EVIE shaw, [facility] 4 10:29:36 Hyperlip idemia 62219748 Active 1959 on statin MD [address], [place], [address] , [facility] 4 20:35:18 Spinal stenosis of lumbar region 97602535 Active 2012 s/p lumbar foramino parish L4 MD [address], [place], [address] , [facility] 4 20:36:41 Sleep apnea 60496457 Active 2012 on CPAP MD [address], [place], [address] , [facility] 4 20:39:31 Gastroes ophageal reflux disease without esophagi tis 786965856 Completed 195908/12/2023 Removal Reason: resolved with surgical repair of HH MD [address], [facility] [address] , [facility] 4 10:41:24 Family history of malignan t neoplasm of digestiv e organ 888415891 Active [address], [place], [address] , [facility] 4 20:37:03 Paresthe asmir 99475468 Completed 201412/01/2014 11/28/19 15 - Comments only - Ana Wade MD - check B12 and folate Problem Code: R20.2; Problem Code Type: ICD-10; Not Available [facility] 3 05:53:48 Adult health examinat ion Active [address], [place], [address] , [facility] 4 20:33:34 Pre-surg ruben evaluati on [...] Z01.818; Problem Code Type: ICD-10; Not Available [facility] 3 05:53:48 Localize d edema 376082046 Completed 201501/29/2016 12/13/19 16 - Comments only - Ana Wade MD - and some on left as well, will check BMP. 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 Nusrat esparza for removal. Problem Code: L72.3; Problem Code Type: ICD-10; Not Available [facility] 3 05:53:49 Chronic ulcer of foot 452327798 Completed 201601/16/2017 12/18/19 17 - Comments only - Ana Wade MD - Due to injury. This does appear to have some granulat ion tissue and to be healing. She is given a prescrip tion for Keflex to take only if erythema seems to be extendin g. Problem Code: L97.509; Problem Code Type: ICD-10; Not Available [facility] 3 05:53:49 Diarrhea 85989208 Completed 201602/10/2017 02/05/20 17 - Comments only - Ana Wade MD - Persiste nt over several months, we will collect stool for C. 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 6 mm PT1NO E2P2 poistive , HER2 negative ANA WADE MD [address], [place], [address] , [facility] 4 20:38:49 Pain in left lower limb 029233442 Active 2016 EVIE shaw [facility], [facility]. 4 10:32:00 Pain in thoracic spine 133301006 Active 2016 EVIE shaw [facility], [facility]. 4 10:32:06 Spasm 49796454 Active 2017 EVIE shaw [facility]. 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 2018 Danica shaw, [facility] 4 14:36:02 Tachycar lea 6093006 Completed 201811/25/2018 Problem Code: R00.0; Problem Code Type: ICD-10; Not Available [facility] 3 05:53:51 Pre-surg ruben evaluati on Completed 201811/25/2018 Problem Code: Z01.818; Problem Code Type: ICD-10; Not Available [facility] 3 05:53:51 Iron deficien cy anemia 92120639 Active 2019 elevated MCV: normal B12 2021, normal folate 2018 IV iron 2023 EGD 01/2022 paraesop hageal hernia (since repaired ) colo 03/2017 normal ANA WADE MD [address], [place], [address] , [facility] 4 11:44:45 Lumbago with sciatica 498511242 Completed 201903/16/2020 02/24/20 20 - Comments only - Vy Araujocarol Pinon [facility] ATTORNEY - Likely aggravat ed by increase d [...] M54.40; Problem Code Type: ICD-10; Not Available [facility] 3 05:53:52 Right side sciatica 21247257942 9101 Active 2019 EVIE shaw, [facility] 4 10:33:09 Left side sciatica 12685276775 9104 Active [address], [place] [address] , [facility] 4 17:20:20 Diaphrag matic hernia 77727032 Completed 202108/11/2023 Removal Reason: s/p repair MD [address], [place] [address] , [facility] 4 20:50:39 History of SARS-CoV -2 [id number] 5597046 Completed 202104/04/2022 03/21/20 22 - Comments only - Ana Wade MD - testing is negative today in the office. Still some fatigue but otherwis e recoveri ng. Did get MAB. Already had covid bivalent booster prior to illness Problem Code: Z86.16; Problem Code Type: ICD-10; Not Available [facility] 3 05:53:53 Diarrhea 87832129 Completed 202104/18/2022 Problem Code: R19.7; Problem Code Type: ICD-10; MD [address], [facility] [address] , [facility] 4 21:03:02 Radhain g mammogreduardo phy Completed 202208/11/[address], [facility] [address] , [facility] 4 20:36:56 Carpal tunnel syndrome of left wrist 34862747988 9102 Completed 202201/23/2023 Problem Code: G56.02; Problem Code Type: ICD-10; Not Available [facility] 4 05:37:46 Diarrhea 65632981 Active 2022 started colestip ol 01/[address], [place], [address] , [facility] 4 21:03:02 Carpal tunnel syndrome of right wrist 66700226467 9108 Completed 201803/19/2020 Problem Code: G56.01; Problem Code Type: ICD-10; Not Available [facility] 3 05:53:55 Pain of left knee joint 23972710107 4107 Completed 202107/30/2022 Problem Code: M25.562; Problem Code Type: ICD-10; Not Available [facility] 3 05:53:55 Hypersom korina 72235367 Completed 201311/27/2014 Problem Code: 780.54; Problem Code Type: ICD-9; Not Available [facility] 3 05:53:56 Screenin g for disorder Completed 201909/11/2021 Problem Code: Z13.9; Problem Code Type: ICD-10; Not Available [facility] 3 05:53:56 Anemia 041216943 Completed 201903/19/2020 Problem Code: D64.9; Problem Code Type: ICD-10; Not Available [facility] 3 05:53:56 Long-ter m current use of anticoag ulant 393590301 Completed 201709/01/2018 Problem Code: Z79.01; Problem Code Type: ICD-10; Not Available [facility] 3 05:53:57 Chronic rhinitis 24169924 Completed 202108/12/2021 Problem Code: J31.0; Problem Code Type: ICD-10; Not Available [facility] 3 05:53:57 Impaired fasting glycemia 070113371 Completed 201401/28/2023 Not Available [facility] 3 05:53:57 Fatigue 94066428 Completed 201903/19/2020 Problem Code: R53.83; Problem Code Type: ICD-10; Not Available [facility] 3 05:53:58 Upper respirat ory tract infectio n caused by Influenz a A 16669287198 9104 Completed 201707/02/2017 Problem Code: J09.x2; Problem Code Type: ICD-10; Not Available [facility] 3 05:53:59 Diarrhea 83530612 Completed 201709/01/2018 ANA WADE MD [address], [place], [address] [facility] 4 21:03:02 Acute upper respirat ory infectio n 98990463 Completed 202108/26/2021 Problem Code: J06.9; Problem Code Type: ICD-10; Not Available [facility] 3 05:53:59 Pain in right foot 67748730240 9107 Completed 202207/30/2022 Problem Code: M79.671; Problem Code Type: ICD-10; Not Available [facility] 3 05:54:00 Breast composit ion 712465543 Completed 201601/28/2023 Not Available [facility] 3 05:54:00 Changes in skin texture 648186757 Completed 202207/30/2022 Problem Code: R23.4; Problem Code Type: ICD-10; Not Available [facility] 3 05:54:01 Spasm 41852376 Completed 201603/23/2017 Problem Code: R25.2; Problem Code Type: ICD-10; EVIE shaw [facility] 4 10:33:28 Hyperten sive disorder 81156987 Completed 11/28/19 15 - Comments only - Ana Wade MD - [facility] ed, no change in medicati ons Not Available [facility] 3 05:54:03 Arthralg ia of the ankle and/or foot 374764295 Completed 201501/30/2016 Problem Code: M25.571; Problem Code Type: ICD-10; Not Available [facility] 3 05:54:03 Dyspnea 273481833 Completed 201903/19/2020 Problem Code: R06.02; Problem Code Type: ICD-10; [facility] 4 14:39:47 Trigger finger of right hand 23623852860 706722 Completed 201803/19/2020 Problem Code: M65.341; Problem Code Type: ICD-10; Not Available [facility] 3 05:54:06 Cough 80932644 Completed 202108/12/2021 Problem Code: R05.1; Problem Code Type: ICD-10; Not Available [facility] 3 05:54:06 At risk - finding 599775904 Completed 201811/11/2018 Problem Code: Z91.89; Problem Code Type: ICD-10; Not Available [facility] 3 05:54:06 Cough 31113599 Completed 201706/15/2017 Problem Code: R05; Problem Code Type: ICD-10; Not Available [facility] 3 05:54:07 Preopera tive cardiova scular examinat ion Completed 202112/18/2021 Problem Code: Z01.810; Problem Code Type: ICD-10; Not Available [facility] 3 05:54:08 Arterial bruit 35963001 Completed 202109/11/2021 Not Available [facility] 3 05:54:08 Gastroes ophageal reflux disease 616885973 Completed Not Available [facility] 3 05:54:09 Imaging of musculos keletal system abnormal 218036417 Completed 201603/23/2017 Problem Code: R93.7; Problem Code Type: ICD-10; Not Available [facility] 3 05:54:10 Blood glucose outside referenc e range 804231479 Completed 201503/20/2016 Problem Code: R73.09; Problem Code Type: ICD-10; Not Available [facility] 3 05:54:10 Abdomina l aortic aneurysm 608242218 Completed 195912/04/2014 Not Available [facility] 3 05:54:11 Lung field abnormal 881546810 Completed 202109/11/2021 Problem Code: R91.8; Problem Code Type: ICD-10; Not Available [facility] 3 05:54:11 Ingrowin g nail 153516902 Completed 201503/23/2017 Problem Code: L60.0; Problem Code Type: ICD-10; Not Available [facility] 3 05:54:11 Hypokale karyn 34716238 Completed 201504/17/2016 Problem Code: E87.6; Problem Code Type: ICD-10; Not Available [facility] 3 05:54:12 Spasm 70207483 Completed 202201/23/2023 Problem Code: M62.838; Problem Code Type: ICD-10; EVIE shaw, [facility]. 4 10:33:28 Aneurysm of ascendin g aorta 896553584 Active [address], [place], [address] , [facility]. 4 19:24:51 Bicuspid aortic valve 04368417 Active 2023 severe by ECHO 07/[address], [place], [address] , [facility]. 4 19:33:10 Osteopen ia 893169581 Active 2023 EVIE shaw [facility]. 4 10:28:13 Venous stasis 89025984 Active 2023 EVIE shaw [facility]. 4 10:29:14 Chronic kidney disease 221731865 Active 2017 Stage 3bA1v eGFR 42-[address], [place], [place], [address] [place] [address] , [facility] 4 20:49:29 Dyspnea on exertion 21645494 Active 2018 Danica Felix colin, [facility] 4 14:39:44 Hiatal hernia 59731048 Completed 202108/11/2023 lap repair MD [address], [place] [address] , [facility] 4 20:51:15 Edema of lower extremit y 322631472 Active [address], [place] [address] , [facility] 4 20:55:49 Atrial fibrilla tion 48913515 Active 2016 s/p pulmonoa ry vein isolatio n 05/2018, chronic anticoag ulation with Xarelto MD [address], [place], [place], [address] [place] [address] , [facility] 4 09:14:08 Obesity 425964668 Active [address], [place], [place], [address] [place] [address] , [facility] 4 09:26:22 Cardiac pacemake r in situ 032949701 Active 2023 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 MD [address], [place] [address] , [facility] 4 09:13:49 Swelling of bilatera l lower limbs 879774618 Active [address], [place] [address] , [facility] 14:35:13 Problem Notes None recorded. Procedures Surgical History Date Name Laterality Status Provider Name and Address Organization Details Recorded Time 10/26/19 cardiac pacemaker procedure completed MD [address], [place], [address], [facility] 03/16/2024 16:33:27 10/20/19 transcatheter aortic valve implantation completed MD [address], [place], [address], [facility] 03/16/2024 16:32:53 Imaging Results None recorded. Procedure Notes None recorded. Medical Equipment None Reported. Allergies Allergen ID Allergen Name Allergen Category Reaction Reaction Severity Criticality Documentation Date Start Date Code Code System Note Provider Name and Address Organization Details Recorded Time 47414 amlodipin e medicatio n swelling severe high 11/18/2023 46783 RxNorm HIRA Hodge, [facility] 13:47:28 Medications Name Sig Start Date [...] 1 tab by mouth daily 06/02 completed [facility] Not Available Not Available Not [...] Smoking Status Never Smoker KRYSTAL SKELTON LPN [facility], [place] - [facility]. 08/12/2023 07:44:55 Date Of Most [...] And Wanted Help? (For Example, If You [place] Very Nervous, Lonely, Or Blue; Got Sick [...] Details Recorded Time Pneumococcal conjugate PCV20, polysaccharide SPP514 conjugate, adjuvant, PF 4 completed MD [address], [address] 08/12/2023 11:52:18 COVID-19, mRNA, LNP-S, PF, vanda-sucrose, 30 mcg/0.3 mL 4 completed MD [address], [facility] [address] 08/12/2023 11:52:18 COVID-19, mRNA, LNP-S, PF, vanda-sucrose, 30 mcg/0.3 mL 4 completed MD [address], [address] 03/04/2024 15:04:49 Tdap 1 completed Not Available [facility] 03/13/2023 06:18:37 Tdap 1 completed Not Available [facility] 03/13/2023 06:18:37 zoster live 5 completed Not Available [facility] 03/13/2023 06:18:37 Influenza, high-dose, trivalent, PF 8 completed Not Available [facility] 03/13/2023 06:18:38 Influenza, split virus, trivalent, preservative 6 completed Not Available [facility] 03/13/2023 06:18:38 Pneumococcal Conjugate, unspecified formulation 5 completed Not Available [facility] 03/13/2023 06:18:38 Influenza, split virus, quadrivalent, preservative 7 completed Not Available [facility] 03/13/2023 06:18:38 Influenza, high-dose, quadrivalent, PF 2 completed Not Available [facility] 03/13/2023 06:18:38 Influenza, high-dose, quadrivalent, PF 1 completed Not Available [facility] 03/13/2023 06:18:38 Influenza, high-dose, quadrivalent, PF 0 completed Not Available [facility] 03/13/2023 06:18:38 COVID-19, mRNA, LNP-S, PF, 100 mcg/0.5mL dose or 50 mcg/0.25mL dose 1 completed Not Available [facility] 03/13/2023 06:18:38 COVID-19, mRNA, LNP-S, PF, 100 mcg/0.5mL dose or 50 mcg/0.25mL dose 1 completed Not Available [facility] 03/13/2023 06:18:39 COVID-19, mRNA, LNP-S, PF, 100 mcg/0.5mL dose or 50 mcg/0.25mL dose 1 completed Not Available [facility] 03/13/2023 06:18:39 COVID-19, mRNA, LNP-S, bivalent, PF, 30 mcg/0.3 mL dose 2 completed Not Available [facility] 03/13/2023 06:18:39 pneumococcal polysaccharide PPV23 1 completed Not Available [facility] 03/13/2023 06:18:39 influenza, unspecified formulation 6 completed Not Available [facility] 03/13/2023 06:18:39 influenza, unspecified formulation 4 completed Not Available [facility] 03/13/2023 06:18:39 Influenza, high-dose, quadrivalent, PF 3 completed Not Available [facility] 05/15/2023 05:33:16 Past Encounters Encounter ID Performer Location Encounter Start Date Encounter Closed Date Diagnosis/Indication Diagnosis SNOMED-CT Code Diagnosis ICD10 Code Diagnosis Note [id number] Samantha Razo RN [address] [place] [address] 04/18/2024 10:14:04 04/18/2024 10:46:21 Osteoporotic fracture 05146930 M80.00XD Hypothyroidism 22659912 E03.9 Iron defic iency anemia 66008522 D50.9 Chronic ki dney disease 338927698 N18.9 Prediabetes 357020020 R7 3.03 Health Concerns Section Related Observation LastModified by Organization Detai ls LastModified Time None Recorded Concern Status LastModified by Organization Details LastModified Time None Recorded Payers Encounter Date Sequence Insurance Name Policy Number Policy Palacio Covered Member ID Palacio Member ID Guarantor Name 04/18/2024 1 [place] [employer] Digna Olson [id number] Digna Olson 04/18/2024 2 [place] [facility] [id number] Digna Olson [id number] Digna Olson OBGyn Episode No OBEpisode recorded.
--- OUTSIDE RECORDS SUMMARY | 2024-05-27 09:50 | XMS_ITS | Encounter Summary ---
Author Organization [facility] [place] [address] Care Team Providers Care Trial Lawyer Name Role Phone Ana Her MD Primary Care Provider [phone] Encounter Details Date Type Department Care Team (Latest Contact Info) Description 04/03/2022 12:00 PM EST TH Visit (TeleHealth) [place] [address] Laura Will MD [facility] [place] [address] Status post repair of paraesophageal diaphragmatic hernia [...] status documented in this encounter Care Teams Trial Lawyer Relationship Specialty Start Date End Date Ana Her MD [facility] [address] [place] [address] PCP - General 07/29/13 documented as of this encounter
--- OUTSIDE RECORDS SUMMARY | 2024-05-27 09:50 | XMS_ITS | Encounter Summary ---
[place] [address] Care Team Providers Care Medical Delivery Driver Name Role Phone Ana Her MD Primary Care Provider [phone] Encounter Details Date Type Department Care Team (Late st Contact Info) Description 10/23/2022 Telephone Mammography/[place] [id number] Aby [place] Social History Tobacco Use Types [...] filedocumented in this encounter Care Teams Medical Delivery Driver Relationship Specialty Start Date End Date Ana Her MD [address] [place] [address] PCP - General 07/29/13 documented as of this encounter
--- OUTSIDE RECORDS SUMMARY | 2024-05-27 09:50 | XMS_ITS | Encounter Summary ---
[place] [address] Care Team Providers Care Yarn Twister Name Role Phone Ana Her MD Primary Care Provider Reason for Visit * Auth/Cert Specialty Diagnoses / Procedures Referred By Christiano hackett Referred To Contact Diagnoses S/P repair of paraesophageal hernia Post-Op monitoring Procedures PRO LAPARSCOPY REPAIR PARAESOPHAGEAL HERNIA INCL FUNDOPLASTY W/O MESH LAPAROSCOPIC PARAESOPHAGEAL HERNIA REPAIR W/FUNDOPLASTY, W/O MESH (WRVU 26.6) MODIFIER TOUPET FUNDOPLASTY Shania Will MD [facility] [place] [address] [facility] Referral ID Status Reason Start Date Expiration Date Visits Re quested Visits Authorized [id number] 1 1 Encounter Details Date Type Department Care Team (Late st Contact Info) Description 03/05/2022 12:54 PM EDT - 03/05/2022 4:55 PM EDT Surgery [place] [id number] Shania Will MD [facility] [place] [address] LAPAROSCOPIC PARAESOPHAGEAL HERNIA REPAIR W/FUNDOPLASTY, W/O MESH [...] 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 Anemia D64.9 ??? Aortic valve [...] Per chart review, her creatinine levels in 1167-1123 ranged from 0.87-1.50 indicative of possible undiagnosed [...] PM Shania Will MD General Surgery at [facility] Arrive at: Rubber Compounder Area [phone] Instructions Given to Patient at Discharge: Patient [...] hours please call the Surgery Clinic at [phone] before 5 PM on weekdays. For questions after hours and on weekends please call the hospital crusher and blender operator at [phone] and ask for the General Surgery resident cotton grader. They may not be familiar with your [...] post Sly diet, as instructed by the dado operator in the hospital for a period [...] renal function. Please call the clinic at [phone] to confirm or reschedule. Future Appointments Date Time Provider Department Center 04/03/2022 12:00 PM Shania Will MD [facility] SURG [facility] General Instructions None Future Appointments and Orders Future Appointments and Orders Future Appointments Provider Department Dept Phone 04/03/2022 12:00 PM Shania Will MD General Surgery at [facility] Arrive at: Rubber Compounder Area 4L [phone] Signed: Shena Harden MD 03/07/22 7:18 AM [phone] Primary Saima Physician: MD Geovany David DR [facility] [id number] documented in this encounter Discharge Instructions * [...] hours please call the Surgery Clinic at [phone] before 5 PM on weekdays. For questions after hours and on weekends please call the hospital crusher and blender operator at [phone] and ask for the General Surgery resident cotton grader. They may not be familiar with your [...] post Sly diet, as instructed by the dado operator in the hospital for a period [...] renal function. Please call the clinic at [phone] to confirm or reschedule. Future Appointments Date Time Provider Department Center 04/03/2022 12:00 PM Shania Will MD [facility] SURG [facility] documented in this encounter Medications at Time [...] - 03/07/2022 10:25 AM EDT [facility] Short Stay Unit Discharge Note All [...] Sly Diet Education to pt Digna Olson. Assistant Golf Course Superintendent metwith pt at bedside to deliver [...] she is noticing some overall improvement post op.Assistant Golf Course Superintendent took note of this and encouraged [...] Department contact information provided. Pt appreciate of group underwriter's time. Nutrition to follow as needed. [...] Perez MD 03/05/2022 Minimally Invasive Surgery Pager #[phone] * Lorrie Slater RN - 03/05/2022 6:46 [...] ?? She is followed by cardiology at [facility], and is on xarelto. ?? [...] of left breast of female, estrogen receptor [id number], Z17.0 ??? Anemia D64.9 ??? Aortic valve [...] by Malika Chen MD at [facility] MAIN OR ??? PRO INTRAOP SENTINEL LYMPH ID W/DYE INJECTION Left 03/30/2017 ?? INTRAOPERATIVE ID (MAPPING) SENTINEL LYMPH NODE,INCLUDES INJECTION (WRVU 2.5) performed by Malika Chen MD at [facility] MAIN OR ??? PRO MASTECTOMY PARTIAL Left 03/30/2017 ?? MASTECTOMY PARTIAL (WRVU 10.13) performed by Malika Chen MD at [facility] MAIN OR ?? Cholecystectomy ?? Medications: [...] Operative Note Patient Name: Digna Olson : [id number] MR#: [id number] Case Date: 03/05/2022 Surgeon: Surgeon(s) and Role: [...] Flores MD - 03/05/2022 2:32 PM EDT [facility] Operative Note Patient Name: Digna Olson : [id number] MR#: [id number] Case Date: 03/05/2022 Surgeon: Surgeon(s) and Role: [...] Repair Paraesophageal Hernia Incl Fundoplasty W/O Mesh (16240) 03/05/2022 1:58 PM EDT Paraesophageal Hernia POCT GLUCOSE Routine 03/05/2022 12:18 PM EDT LAPAROSCOPIC PARAESOPHAGEAL HERNIA REPAIR W FUNDOPLASTY, W/O MESH Routine 03/05/2022 12:02 PM EDT documented in this encounter Results * (ABNORMAL) Differential, Automated (03/07/2022 5:08 AM EDT) Neutrophil % 80.0 % [facility] Neutrophil Absolute 5.30 1.70 - 6.10 x10(3)/mc L [facility] Lymph % 12.1 % [facility] Lymphocytes Abs 0.8(L) 0.9 - 3.2 x10(3)/mc L [facility] Monocyte % 7.6 % [facility] Monocyte Abs 0.5 0.3 - 0.9 x10(3)/mc L [facility] Eos % 0.0 % [facility] Eosinophils Abs 0.0 0.0 - 0.4 x10(3)/[facility] Basophil % 0.0 % [facility] Baso Absolute 0.0 0.0 - 0.1 x10(3)/[facility] Immature Gran % 0.30 % [facility] Comment: Immature granulocytes(IG's)percentage and absolute count will include metamyelocytes, myelocytes, and promyelocytes. Blood smears from CBCs yielding IG's will be scanned manually for concordance. If this scan disagrees with the automated IG or if promyelocytes are noted, a manual differential will be performed. Immature Gran Absolute 0.02 0.00 - 0.04 x10(3)/[facility] Blood 03/07/2022 5:08 AM EDT 03/07/2022 5:19 AM EDT Narrative Resulting Agency Comment Spec In Lab Nino Levy MD HEMATOLOGY ORDERABLE S [facility] [place] [address] * (ABNORMAL) Hemogram (03/07/2022 5:08 AM EDT) White Blood Cell 6.6 4.0 - 9.5 x10(3)/[facility] Red Blood Cell 3.16(L) 4.00 - 5.21 x10(6)/[facility] Hemoglobin 10.7(L) 11.7 - [...] Platelet 110(L) 145 - 357 x10(3)/mc L [facility] RDW Standard Deviation 47.5(H) 37.0 - 46.0 [facility] RDW coefficient of variation 12.9 11.5 - 14.1 % [facility] Mean Platelet Volume 11.7 7.6 - 12.9 [facility] NRBC% auto 0.0 % [facility] NRBC Absolute 0.000 0.000 - 0.000 x10(3)/mc L [facility] Blood 03/07/2022 5:08 AM EDT 03/07/2022 5:19 AM EDT Narrative Resulting Agency Comment Spec In Lab Nino Levy MD HEMATOLOGY ORDERABLE S Performing Organization Address City/[facility]/[place] [address] * Phosphorus (03/07/2022 5:08 AM EDT) Phosphorus 2.7 2.5 - 4.5 mg/dL [facility] Blood 03/07/2022 5:08 AM EDT 03/07/2022 5:19 AM EDT Narrative Resulting Agency Comment Spec In Lab Shania Will MD CHEMISTRY ORDERABLE S Performing Organization Address City/[facility]/ZIP Co de Phone Number [facility] [place] [address] * Magnesium (03/07/2022 5:08 AM EDT) Magnesium 0.89 0.69 - 1.07 mmol/L [facility] Blood 03/07/2022 5:08 AM EDT 03/07/2022 5:19 AM EDT Narrative Resulting Agency Comment Spec In Lab Shania Will MD CHEMISTRY ORDERABLE S [facility] [place] [address] * (ABNORMAL) Basic Metabolic Panel (non-fasting) (03/07/2022 [...] MD CHEMISTRY ORDERABLE S Performing Organization Address City/[facility]/ZIP Co de Phone Number [facility] [place] [address] * (ABNORMAL) Differential, Automated (03/06/2022 10:15 AM EDT) Neutrophil % 90.7 % [facility] Neutrophil Absolute 5.79 1.70 - 6.10 x10(3)/mc L [facility] Lymph % 5.0 % [facility] Lymphocytes Abs 0.3(L) 0.9 - 3.2 x10(3)/mc L [facility] Monocyte % 3.8 % [facility] Monocyte Abs 0.2(L) 0.3 - 0.9 x10(3)/mc L [facility] Eos % 0.0 % [facility] Eosinophils Abs 0.0 0.0 - 0.4 x10(3)/[facility] Basophil % 0.0 % [facility] Baso Absolute [...] Absolute 0.03 0.00 - 0.04 x10(3)/mc L [facility] Blood 03/06/2022 10:1 5 AM EDT 03/06/2022 10:21 AM EDT Narrative Resulting Agency Comment Spec In Lab Maryam MUELLER HEMATOLOGY ORDERABL ES Performing Organization Address City/[facility]/ZIP Co de Phone Number [facility] [place] [address] * (ABNORMAL) Hemogram (03/06/2022 10:15 AM EDT) [...] HOSPITAL LABORATORY Platelet 111(L) 145 - 357 x10(3)/[facility] RDW Standard Deviation 47.2(H) 37.0 - 46.0 [facility] RDW coefficient of variation 12.9 11.5 - 14.1 % [facility] Mean Platelet Volume 11.5 7.6 - 12.9 [facility] NRBC% auto 0.0 % [facility] NRBC Absolute 0.000 0.000 - 0.000 x10(3)/ L [facility] Blood 03/06/2022 10:1 5 AM EDT 03/06/2022 10:21 AM EDT Narrative Resulting Agency Comment Spec In Lab Maryam MUELLER HEMATOLOGY ORDERABL ES [facility] [place] [address] * Phosphorus (03/06/2022 10:15 AM EDT) Phosphorus 3.3 2.5 - 4.5 mg/dL [facility] Blood 03/06/2022 10:1 5 AM EDT 03/06/2022 10:21 AM EDT Narrative Resulting Agency Comment Spec In Lab Shania Will MD CHEMISTRY ORDERABLE S [facility] [place] [address] * Magnesium (03/06/2022 10:15 AM EDT) Magnesium 0.69 0.69 - 1.07 mmol/L [facility] Blood 03/06/2022 10:1 5 AM EDT 03/06/2022 10:21 AM EDT Narrative Resulting Agency Comment Spec In Lab Shania Will MD CHEMISTRY ORDERABLE S Performing Organization Address City/[facility]/ZIP Co de Phone Number [facility] [place] [address] * (ABNORMAL) Basic Metabolic Panel (non-fasting) (03/06/2022 10:15 AM EDT) Glucose 155 65 - 199 mg/dL [facility] [...] MD CHEMISTRY ORDERABLE S Performing Organization Address City/State/[facility] Co de Phone Number [facility] [place] [address] * (ABNORMAL) Differential, Automated (03/06/2022 4:29 AM EDT) Neutrophil % 90.5 % [facility] Neutrophil Absolute 4.47 1.70 - 6.10 x10(3)/mc L [facility] Lymph % 6.9 % [facility] Lymphocytes Abs 0.3(L) 0.9 - 3.2 x10(3)/mc L [facility] Monocyte % 2.2 % [facility] Monocyte Abs 0.1(L) 0.3 - 0.9 x10(3)/mc L [facility] Eos % 0.0 % [facility] Eosinophils Abs 0.0 0.0 - 0.4 x10(3)/mc L [facility] Basophil % 0.2 % [facility] Baso Absolute [...] Immature Gran Absolute 0.01 0.00 - 0.04 x10(3)/[facility] Blood 03/06/2022 4:29 AM EDT 03/06/2022 4:49 AM EDT Narrative Resulting Agency Comment Spec In Lab Prakash Mendez MD HEMATOLOGY ORDERABLE S [facility] [place] [address] * (ABNORMAL) Hemogram (03/06/2022 4:29 AM EDT) White Blood Cell 4.9 4.0 - 9.5 x10(3)/[facility] Red Blood Cell 3.08(L) 4.00 - 5.21 x10(6)/[facility] Hemoglobin 10.5(L) 11.7 - [...] HOSPITAL LABORATORY Platelet 104(L) 145 - 357 x10(3)/[facility] RDW Standard Deviation 47.5(H) 37.0 - 46.0 fL [facility] RDW coefficient of variation 12.9 11.5 - 14.1 % [facility] Mean Platelet Volume 11.8 7.6 - 12.9 fL [facility] NRBC% auto 0.0 % [facility] NRBC Absolute 0.000 0.000 - 0.000 x10(3)/mc L [facility] Blood 03/06/2022 4:29 AM EDT 03/06/2022 4:49 AM EDT Narrative Resulting Agency Comment Spec In Lab Prakash Mendez MD HEMATOLOGY ORDERABLE S [facility] [place] [address] * (ABNORMAL) Basic Metabolic Panel (non-fasting) (03/06/2022 [...] MD CHEMISTRY ORDERABLE S Performing Organization Address City/[facility]/ZIP Co de Phone Number [facility] [place] [address] * POCT Glucose (03/05/2022 12:18 PM EDT) Glucose, POC 94 65 - 199 mg/dL [facility] Comment: Supplemental ranges: <140 mg/dL before meals <180 mg/dL all other times of the day Blood 03/05/2022 12:1 8 PM EDT 03/05/2022 12:18 PM EDT Shania Will MD POINT OF CARE TEST ORDERABLES Performing Organization Address City/[facility]/ZIP Co de Phone Number [facility] [place] [address] documented in this encounter Visit Diagnoses Not [...] bolus (COMPLETED) Intravenous, ONCE, 1 dose, On Rdaha 03/06/22 at 0500 0410 (New Bag - [...] Unit) documented in this encounter Care Teams Yarn Twister Relationship Specialty Start Date End Date Ana Her MD [address] [facility] [address] [place] [address] PCP - General 07/29/13 documented as of this encounter
--- OUTSIDE RECORDS SUMMARY | 2024-05-27 09:50 | XMS_ITS | Encounter Summary ---
[place] [address] Care Team Providers Care Superintendent Job Name Role Phone Ana Her MD Primary Care Provider [phone] Encounter Details Date Type Department Care Team (Late st Contact Info) Description 02/04/2022 12:00 PM EDT [place] [address] Social History Tobacco Use Types Packs/Day Years [...] on filedocumented in this encounter Care Teams Superintendent Job Relationship Specialty Start Date End Date Ana Her MD [address] [place] [address] PCP - General 07/29/13 documented as of this encounter
--- OUTSIDE RECORDS SUMMARY | 2024-05-27 09:50 | XMS_ITS | Encounter Summary ---
[place] [address] Care Team Providers Care Platen Press Feeder Name Role Phone Ana Her MD Primary Care Provider [phone] Reason for Visit * Auth/Cert Specialty Diagnoses / Procedures Referred By Christiano hackett Referred To Contact Diagnoses S/P repair of paraesophageal hernia Post-Op monitoring Procedures PRO LAPARSCOPY REPAIR PARAESOPHAGEAL HERNIA INCL FUNDOPLASTY W/O MESH LAPAROSCOPIC PARAESOPHAGEAL HERNIA REPAIR W/FUNDOPLASTY, W/O MESH (WRVU 26.6) MODIFIER TOUPET FUNDOPLASTY Shania Will MD [facility] [place] [address] [facility] Referral ID Status Reason Start Date Expiration Date Visits Re quested Visits Authorized [id number] 1 1 Encounter Details Date Type Department Care Team (Latest Contact Info) Description 03/05/2022 11:55 AM EDT - 03/07/2022 10:00 AM EDT Hospital Encounter [place] [phone] Shania Will MD [facility] [place] [address] Discharge Disposition: Home Social History Tobacco Use [...] of left breast of female, estrogen receptor uhdruzafD17.512, Z17.0 ??? Anemia D64.9 ??? Aortic valve [...] Per chart review, her creatinine levels in 0538-3134 ranged from 0.87-1.50 indicative of possible undiagnosed [...] PM Shania Will MD General Surgery at [facility] Arrive at: Dye Range Operator Cloth Area [phone] Instructions Given to Patient at Discharge: Patient [...] hours please call the Surgery Clinic at [phone] before 5 PM on weekdays. For questions after hours and on weekends please call the hospital commuter train operator at [phone] and ask for the General Surgery resident marketing content manager. They may not be familiar with [...] post Sly diet, as instructed by the copyright manager in the hospital for a period of [...] renal function. Please call the clinic at [phone] to confirm or reschedule. Future Appointments Date Time Provider Department Center 04/03/2022 12:00 PM Shania Will MD [facility] SURG [facility] General Instructions None Future Appointments and Orders Future Appointments and Orders Future Appointments Provider Department Dept Phone 04/03/2022 12:00 PM Shania Will MD General Surgery at [facility] Arrive at: Dye Range Operator Cloth Area Signed: Shena Harden MD 03/07/22 7:18 AM [facility] [place] Physician: MD Geovany David DR [facility] [id number] documented in this encounter Discharge Instructions * [...] hours please call the Surgery Clinic at [phone] before 5 PM on weekdays. For questions after hours and on weekends please call the hospital commuter train operator at [phone] and ask for the General Surgery resident marketing content manager. They may not be familiar with [...] post Sly diet, as instructed by the copyright manager in the hospital for a period of [...] renal function. Please call the clinic at [phone] to confirm or reschedule. Future Appointments Date Time Provider Department Center 04/03/2022 12:00 PM Shania Will MD [facility] SURG [facility] documented in this encounter Medications [...] Sly Diet Education to pt Digna Olson. Python Architect metwith pt at bedside to deliver full [...] she is noticing some overall improvement post op.Python Architect took note of this and encouraged the [...] Department contact information provided. Pt appreciate of comic book writer's time. Nutrition to follow as needed. [...] Perez MD 03/05/2022 Minimally Invasive Surgery Pager #[phone] * Lorrie Slater RN - 03/05/2022 6:46 [...] She [place] [facility] [place] and is [place] x[place]. [...] of left breast of female, estrogen receptor [id number], Z17.0 ??? Anemia D64.9 ??? Aortic valve [...] Operative Note Patient Name: Digna Olson : [id number] MR#: [id number] Case Date: 03/05/2022 Surgeon: Surgeon(s) and Role: [...] Flores MD - 03/05/2022 2:32 PM EDT [facility] Operative Note Patient Name: Digna Olson : [id number] MR#: [id number] Case Date: 03/05/2022 Surgeon: Surgeon(s) and Role: [...] Repair Paraesophageal Hernia Incl Fundoplasty W/O Mesh (05693) 03/05/2022 1:58 PM EDT Paraesophageal Hernia POCT [...] [facility] Lymph % 12.1 % [facility] Lymphocytes Abs 0.8(L) 0.9 - 3.2 x10(3)/mc L [facility] Monocyte % 7.6 % [facility] Monocyte Abs 0.5 0.3 - 0.9 x10(3)/mc L [facility] Eos % 0.0 % [facility] Eosinophils Abs 0.0 0.0 - 0.4 x10(3)/mc L [facility] Basophil % 0.0 % [facility] Baso Absolute 0.0 0.0 - 0.1 x10(3)/[facility] Immature Gran % 0.30 % [facility] Comment: Immature granulocytes(IG's)percentage and absolute count will include metamyelocytes, myelocytes, and promyelocytes. Blood smears from CBCs yielding IG's will be scanned manually for concordance. If this scan disagrees with the automated IG or if promyelocytes are noted, a manual differential will be performed. Immature Gran Absolute 0.02 0.00 - 0.04 x10(3)/[facility] Blood 03/07/2022 5:08 AM EDT 03/07/2022 5:19 AM EDT Narrative Resulting Agency Comment Spec In Lab Nino Levy MD HEMATOLOGY ORDERABLE S Performing Organization Address City/State/[facility] Co de Phone Number [facility] [place] [address] * (ABNORMAL) Hemogram (03/07/2022 5:08 AM EDT) White Blood Cell 6.6 4.0 - 9.5 x10(3)/[facility] Red Blood Cell 3.16(L) 4.00 - 5.21 x10(6)/[facility] Hemoglobin 10.7(L) 11.7 - 15.5 g/dL [facility] Hematocrit 31.7(L) 35.7 - 45.8 % [facility] Mean Cell Volume 100.3(H) 82.6 - 94.4 fL [facility] Mean Cell Hemoglobin 33.9(H) 27.1 - 32.0 pg [facility] Mean Cell Hemoglobin Concentration 33.8 31.7 - 35.0 g/dL [facility] Platelet 110(L) 145 - 357 x10(3)/[facility] RDW Standard Deviation 47.5(H) 37.0 - 46.0 fL [facility] RDW coefficient of variation 12.9 11.5 - 14.1 % [facility] Mean Platelet Volume 11.7 7.6 - 12.9 fL [facility] NRBC% auto 0.0 % [facility] NRBC Absolute 0.000 0.000 - 0.000 x10(3)/mc L [facility] Blood 03/07/2022 5:08 AM EDT 03/07/2022 5:19 AM EDT Narrative Resulting Agency Comment Spec In Lab Nino Levy MD HEMATOLOGY ORDERABLE S [facility] [place] [address] * Phosphorus (03/07/2022 5:08 AM EDT) Phosphorus 2.7 2.5 - 4.5 mg/dL [facility] Blood 03/07/2022 5:08 AM EDT 03/07/2022 5:19 AM EDT Narrative Resulting Agency Comment Spec In Lab Shania Will MD CHEMISTRY ORDERABLE S Performing Organization Address City/[facility] Care [facility]/ZIP Co de Phone Number [facility] [place] [address] * Magnesium (03/07/2022 5:08 AM EDT) Magnesium 0.89 0.69 - 1.07 mmol/L [facility] Blood 03/07/2022 5:08 AM EDT 03/07/2022 5:19 AM EDT Narrative Resulting Agency Comment Spec In Lab Shania Will MD CHEMISTRY ORDERABLE S [facility] [place] [address] * (ABNORMAL) Basic Metabolic Panel (non-fasting) (03/07/2022 [...] Lab Shania Will [place] [address] * (ABNORMAL) Differential, Automated (03/06/2022 10:15 AM EDT) Pathologist [facility] Neutrophil % 90.7 % [facility] Neutrophil Absolute 5.79 1.70 - 6.10 x10(3)/ L [facility] Lymph % 5.0 % [facility] Lymphocytes Abs 0.3(L) 0.9 - 3.2 x10(3)/ L [facility] Monocyte % 3.8 % [facility] Monocyte Abs 0.2(L) 0.3 - 0.9 x10(3)/[facility] Eos % 0.0 % [facility] Eosinophils Abs 0.0 0.0 - 0.4 x10(3)/[facility] Basophil % 0.0 % [facility] [...] Absolute 0.03 0.00 - 0.04 x10(3)/ L [facility] Blood 03/06/2022 10:1 5 AM EDT 03/06/2022 10:21 AM EDT Narrative Resulting Agency Comment Spec In Lab Maryam MUELLER [place] [address] * (ABNORMAL) Hemogram (03/06/2022 10:15 AM EDT) [...] Platelet 111(L) 145 - 357 x10(3)/ L [facility] RDW Standard Deviation 47.2(H) 37.0 - 46.0 fL [facility] RDW coefficient of variation 12.9 11.5 - 14.1 % [facility] Mean Platelet Volume 11.5 7.6 - 12.9 fL [facility] NRBC% auto 0.0 % [facility] NRBC Absolute 0.000 0.000 - 0.000 x10(3)/mc L [facility] Blood 03/06/2022 10:1 5 AM EDT 03/06/2022 10:21 AM EDT Narrative Resulting Agency Comment Spec In Lab Maryam MUELLER HEMATOLOGY ORDERABL ES [facility] [place] [address] * Phosphorus (03/06/2022 10:15 AM EDT) Phosphorus 3.3 2.5 - 4.5 mg/dL [facility] Blood 03/06/2022 10:1 5 AM EDT 03/06/2022 10:21 AM EDT Narrative Resulting Agency Comment Spec In Lab Shania Will MD CHEMISTRY ORDERABLE S Performing Organization Address City/[facility]/ZIP Co de Phone Number [facility] [place] [address] * Magnesium (03/06/2022 10:15 AM EDT) Magnesium 0.69 0.69 - 1.07 mmol/L [facility] Blood 03/06/2022 10:1 5 AM EDT 03/06/2022 10:21 AM EDT Narrative Resulting Agency Comment Spec In Lab Shania Will MD CHEMISTRY ORDERABLE S Performing Organization Address [facility] Care Hospital/[facility] Co de Phone Number [facility] [place] [address] * (ABNORMAL) Basic Metabolic Panel (non-fasting) (03/06/2022 10:15 AM EDT) Pathologist [facility] Glucose 155 65 - 199 mg/dL BAR[facility] [...] MD CHEMISTRY ORDERABLE S Performing Organization Address City/State/[facility] Co de Phone Number [facility] [place] [address] * (ABNORMAL) Differential, Automated (03/06/2022 4:29 AM EDT) Neutrophil % 90.5 % [facility] Neutrophil Absolute 4.47 1.70 - 6.10 x10(3)/mc L [facility] Lymph % 6.9 % [facility] Lymphocytes Abs 0.3(L) 0.9 - 3.2 x10(3)/mc L [facility] Monocyte % 2.2 % [facility] Monocyte Abs 0.1(L) 0.3 - 0.9 x10(3)/mc L [facility] Eos % 0.0 % [facility] Eosinophils Abs 0.0 0.0 - 0.4 x10(3)/mc L [facility] Basophil % 0.2 % [facility] [...] Absolute 0.01 0.00 - 0.04 x10(3)/ L [facility] Blood 03/06/2022 4:29 AM EDT 03/06/2022 4:49 AM EDT Narrative Resulting Agency Comment Spec In Lab Prakash Mendez MD HEMATOLOGY ORDERABLE S [facility] [place] [address] * (ABNORMAL) Hemogram (03/06/2022 4:29 AM EDT) White Blood Cell 4.9 4.0 - 9.5 x10(3)/ L [facility] Red Blood Cell 3.08(L) 4.00 - 5.21 x10(6)/ L [facility] Hemoglobin 10.5(L) [...] Platelet 104(L) 145 - 357 x10(3)/ L [facility] RDW Standard Deviation 47.5(H) 37.0 - 46.0 fL [facility] RDW coefficient of variation 12.9 11.5 - 14.1 % [facility] Mean Platelet Volume 11.8 7.6 - 12.9 fL [facility] NRBC% auto 0.0 % [facility] NRBC Absolute 0.000 0.000 - 0.000 x10(3)/mc L [facility] Blood 03/06/2022 4:29 AM EDT 03/06/2022 4:49 AM EDT Narrative Resulting Agency Comment Spec In Lab Prakash Mendez MD HEMATOLOGY ORDERABLE S [facility] [place] [address] * (ABNORMAL) Basic Metabolic Panel (non-fasting) (03/06/2022 [...] CHEMISTRY ORDERABLE S [facility] [place] [address] * POCT Glucose (03/05/2022 12:18 PM EDT) Glucose, POC 94 65 - 199 mg/dL [facility] Comment: Supplemental ranges: <140 mg/dL before meals <180 mg/dL all other times of the day Blood 03/05/2022 12:1 8 PM EDT 03/05/2022 12:18 PM EDT Shania Will MD POINT OF CARE TEST ORDERABLES Performing Organization Address City/[facility] Care Hospital/ZIP Co de Phone Number [facility] [place] [address] documented in this encounter Visit Diagnoses Diagnosis [...] Unit) documented in this encounter Care Teams Platen Press Feeder Relationship Specialty Start Date End Date Ana Her MD [address] [place] [address] PCP - General 07/29/13 documented as of this encounter
--- OUTSIDE RECORDS SUMMARY | 2024-05-27 09:50 | XMS_ITS | Clinical Summary ---
Author Organization [facility] [place] [address] Care Team Providers Care Hat Maker Name Role Phone Ana Her MD Primary Care Provider [phone] Allergies No known active allergies Medications Medication [...] the eliquis and has been managed by [facility]. She has remained in [place] over [...] and ECG with Dr. Ana Her in [place] in January She will discuss ECHO results [...] - TT3 and FT4 nl - My DARK ROOM ATTENDANT colleague called and spoke with covering MD [...] history exists Medical Devices Implanted Type Area Product Safety Technical Assistant Device Identifier Shelf Expiration Date Model / Serial / Lot Breast Clip-02/26/20 17 Implanted: by Enzo Burkett MD (Quantity not on file) Breast Clip Left: Breast Bard - 0614 05/04/2019 [employer] ULTRACOR BREAST TISSUE MARKER ULTRASOUND ENHANCED BLANCA / / [id number] Description:BLANCA Procedures Procedure Name Priority Date/Time Associated [...] Osteopenia of neck of femur, unspecified laterality 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 ? Electronically signed by: Digna Noel MD, [facility] ([phone]), at 06/11/2021 9:20 AM Jeanine Lobato INTERVENTIONAL NURSE IMG MAMMO ORD ERABLES * DXA Central [...] BMD measurements and plots are available in [employer] under the imaging tab. Paper copies will be sent to providers without [employer] access. If you have received this report without the data sheet and do not have access to [employer], please contact Radiology Transition Teacher at [phone] Thursday thru Thursday 8am-4pm. Thank you for letting us participate in the care of this patient. ??If you are a health care provider and have any questions regarding this report, please contact the number below. ??For patients who have questions please contact the health infant childcare provider that requested your imaging first. ? Electronically signed by: Nat Epperson MD, [facility] ([phone]), at 11/19/2020 1:09 PM Narrative 11/19/2020 1:09 [...] BMD measurements and plots are available in [facility] Instituteunder the imaging tab. Paper copies will be sent to providers without E- access.If you have received this report without the data sheet and do not haveaccess to E-, please contact Radiology Transition Teacher at [phone] Thursday thrriday 8am-4pm. Thank you for letting us participate in the care of this patient. If youare a health care provider and have any questions regarding this report,please contact the number below. For patients who have questions please contactthe health infant childcare provider that requested your imaging first. Ricky [...] Status decision made by: Patient Care Teams Hat Maker Relationship Specialty Start Date End Date Ana Her MD [facility] [address] [place] [address] PCP - General 07/29/13
--- OUTSIDE RECORDS SUMMARY | 2024-05-27 09:50 | XMS_ITS | Encounter Summary ---
[place] [address] Care Team Providers Care Chief Nuclear Medicine Technologist Name Role Phone Ana Her MD Primary Care Provider [phone] Encounter Details Date Type Department Care Team (Late st Contact Info) Description 02/03/2023 Telephone [place] [phone] Maryam Barrett Social History Tobacco Use Types [...] filedocumented in this encounter Care Teams Chief Nuclear Medicine Technologist Relationship Specialty Start Date End Date Ana Her MD [address] [place] [address] PCP - General 07/29/13 documented as of this encounter
--- OUTSIDE RECORDS SUMMARY | 2024-05-27 09:50 | XMS_ITS | Encounter Summary ---
[place] [address] Care Team Providers Care Museum Director Name Role Phone Ana Her MD Primary Care Provider [phone] Encounter Details Date Type Department Care Team (Late st Contact Info) Description 02/26/2022 Orders [place] [address] Alicia Manning RN Social History Tobacco Use [...] on filedocumented in this encounter Care Teams Museum Director Relationship Specialty Start Date End Date Ana Her MD [address] [place] [address] PCP - General 07/29/13 documented as of this encounter
--- OUTSIDE RECORDS SUMMARY | 2024-05-27 09:51 | XMS_ITS | Encounter Summary ---
[place] [address] Care Team Providers Care Cryogenic Transport Driver Name Role Phone Ana Her MD Primary Care Provider [phone] Encounter Details Date Type Department Care Team (Late st Contact Info) Description 06/12/2021 Telephone [place] [phone] Chelsie Lauren Social History Tobacco Use Types [...] on filedocumented in this encounter Care Teams Cryogenic Transport Driver Relationship Specialty Start Date End Date Ana Her MD [address] [place] [address] PCP - General 07/29/13 documented as of this encounter
--- OUTSIDE RECORDS SUMMARY | 2024-05-27 09:51 | XMS_ITS | Encounter Summary ---
Author Organization [facility] [place] [address] Care Team Providers Care System Dispatcher Name Role Phone Ana Her MD Primary Care Provider [phone] Reason for Visit * Reason Comments Follow Up Surgery Encounter Details Date Type Department Care Team (Late st Contact Info) Description 07/13/2017 1:30 PM EDT Office [place] [phone] Hiral Padgett, WENDY History of breast cancer [...] with image-guided localization ?Lymph Node Sampling: ?? [place] lymph node(s) ?Specimen Laterality: ?? Left Tumor [...] ?DCIS not present in specimen Lymph Nodes ?[place] Lymph Nodes: ?? [place] lymph node biopsy performed ?Number of [place] Nodes Examined: ?3 ?Number of Lymph Node(s) [...] breast documented in this encounter Care Teams System Dispatcher Relationship Specialty Start Date End Date Ana Her MD [facility] [address] [place] [address] PCP - General 07/29/13 documented as of this encounter
--- OUTSIDE RECORDS SUMMARY | 2024-05-27 09:51 | XMS_ITS | Encounter Summary ---
[place] [address] Care Team Providers Care Chemical Processing Laborer Name Role Phone Ana Her MD Primary Care Provider [phone] Encounter Details Date Type Department Care Team (Late st Contact Info) Description 12/24/2021 Telephone [place] [phone] Chelsie Lauren Social History Tobacco Use Types [...] on filedocumented in this encounter Care Teams Chemical Processing Laborer Relationship Specialty Start Date End Date Ana Her MD [address] [place] [address] PCP - General 07/29/13 documented as of this encounter
--- OUTSIDE RECORDS SUMMARY | 2024-05-27 09:51 | XMS_ITS | Encounter Summary ---
[place] [address] Care Team Providers Care Receivable Executive Name Role Phone Ana Her MD Primary Care Provider [phone] Encounter Details Date Type Department Care Team (Late st Contact Info) Description 11/09/2018 2:45 PM EDT Office Visit Hematology [place] [address] Ricky Lowry MD Malignant neoplasm of lower-outer [...] ??Excision with image-guided localization ?Lymph Node Sampling: ??[place] lymph node(s) ?Specimen Laterality: ??Left Tumor ?Histologic [...] ??DCIS not present in specimen Lymph Nodes ?[place] Lymph Nodes: [place] lymph node biopsy performed ?Number of [place] Nodes Examined: ??3 ?Number of Lymph Node(s) [...] Spinal stenosis > A Fib. Cardiology at [facility]. S/P successful cardioversion [...] laterality documented in this encounter Care Teams Receivable Executive Relationship Specialty Start Date End Date Ana Her MD [address] [place] [address] PCP - General 07/29/13 documented as of this encounter
--- OUTSIDE RECORDS SUMMARY | 2024-05-27 09:51 | XMS_ITS | Encounter Summary ---
[place] [address] Care Team Providers Care Industry Segment Specialist Name Role Phone Ana Her MD Primary Care Provider [phone] Encounter Details Date Type Department Care Team (Late st Contact Info) Description 06/12/2021 Telephone [place] [phone] Chelsie Lauren Social History Tobacco Use Types [...] on filedocumented in this encounter Care Teams Industry Segment Specialist Relationship Specialty Start Date End Date Ana Her MD [address] [place] [address] PCP - General 07/29/13 documented as of this encounter
--- OUTSIDE RECORDS SUMMARY | 2024-05-27 09:51 | XMS_ITS | Encounter Summary ---
Author Organization [facility] [place] [address] Care Team Providers Care Content Curator Name Role Phone Ana Her MD Primary Care Provider [phone] Encounter Details Date Type Department Care Team (Late st Contact Info) Description 04/23/2017 Notes [place] [address] Marjorie Ariza Social History Tobacco Use Types [...] Marjorie Ariza - 04/23/2017 2:43 PM EST Welder Fitter Arc Associate Chemist met with pt after consultation with medical [...] filedocumented in this encounter Care Teams Content Curator Relationship Specialty Start Date End Date Ana Her MD [address] [facility] [place] [address] PCP - General 07/29/13 documented as of this encounter
--- OUTSIDE RECORDS SUMMARY | 2024-05-27 09:51 | XMS_ITS | Encounter Summary ---
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 Results: Last [...] Medical Oncology - Breast & GI [facility] Pager - [phone] No future appointments. documented in this encounter Plan of Treatment Not on file documented as of this encounter Visit Diagnoses Diagnosis Malignant neoplasm of lower-outer quadrant of left breast of female, estrogen receptor positive jail current use of aromatase inhibitor Use of aromatase inhibitors documented in this encounter Care Teams Metal Die Finisher Relationship Specialty Start Date End Date Ana Her MD [address] [place] [address] PCP - General 07/29/13 documented as of this encounter
--- OUTSIDE RECORDS SUMMARY | 2024-05-27 09:51 | XMS_ITS | Encounter Summary ---
Author Organization [facility] [place] [address] Care Team Providers Care Feather Curling Machine Operator Name Role Phone Ana Her MD Primary Care Provider [phone] Encounter Details Date Type Department Care Team (Late st Contact Info) Description 05/10/2018 1:10 PM EST - 05/10/2018 11:59 PM EST Hospital Encounter Mammography/[place] [phone] Hiral Padgett, WENDY Encounter for screening mammogram [...] cancer documented in this encounter Care Teams Feather Curling Machine Operator Relationship Specialty Start Date End Date Ana Her MD [address] [place] [address] PCP - General 07/29/13 documented as of this encounter
--- OUTSIDE RECORDS SUMMARY | 2024-05-27 09:51 | XMS_ITS | Encounter Summary ---
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 Procedures DXA Central-Spine, Hip, And/Or Whole Body (Generic) Ricky Lowry MD [facility] HEMATOLOGY/[place] [address] [facility] Rad Xray [address] [place] [address] [place] [phone] Referral ID Status Reason Start Date Expiration Date V isits Requested Visits Authorized [id number] Closed Specialty Service Requested 05/10/2018 05/10/2019 1 1 Reason for Visit * Diagnostic Test (Routine) - Closed Specialty Diagnoses / Procedures Referred By Contac t Referred To Contact Radiology Diagnoses Malignant neoplasm of lower-outer quadrant of left breast of female, estrogen receptor positive Osteopenia of neck of femur, unspecified laterality 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 Procedures DXA Central-Spine, Hip, And/Or Whole Body (Generic) Ricky Lowry MD [facility] HEMATOLOGY/[place] [address] [facility] Rad Xray [address] [place] [address] Dr Al[place], [place] [address] Referral ID Status Reason Start Date Expiration Date V isits Requested Visits Authorized [id number] Closed Specialty Service Requested 05/10/2018 05/10/2019 1 1 Encounter Details Date Type Department Care Team (Latest Contact Info) Description 11/09/2018 1:03 PM EDT - 11/09/2018 11:59 PM EDT Hospital Encounter XRay at [address] [place] [address] Ricky Lowry MD Malignant neoplasm of lower-outer quadrant of left breast of female, estrogen receptor positive; Osteopenia of neck of femur, unspecified laterality; 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 Paper copies will be sent to providers without E-DH access. If you have received this report without the data sheet and do not have access to [employer], please contact Radiology Mine Superintendent at [phone] Thursday thru Thursday 8am-4pm. Thank you for letting us participate in the care of this patient. For questions regarding this report, please contact the number below. ? Electronically signed by: JULIET Jackson [facility] ([phone]), at 11/10/2018 10:55 AM Narrative 11/10/2018 10:55 [...] BMD measurements and plots are available in Xterprise Solutionsunder the imaging tab. Paper copies will be sent to providers without Dashbid access.If you have received this report without the data sheet and do not haveaccess to Dash[employer], please contact Radiology Mine Superintendent at [phone] Thursday thruFriday 8am-4pm. Thank you for letting us participate in the care of this patient. Forquestions regarding this report, please contact the number below. Electronically signed by: Khushi Hughes [facility] [place] ([phone]),at 11/10/2018 10:55 AM Ricky Lowry MD IMG DEXA ORDERABLES documented in this encounter Visit Diagnoses Diagnosis Malignant neoplasm of lower-outer quadrant of left breast of female, estrogen receptor positive Osteopenia of neck of femur, unspecified laterality snf current use of aromatase inhibitor Use of aromatase inhibitors documented in this encounter Care Teams Stem Mounter Relationship Specialty Start Date End Date Ana Her MD [facility] [address] [facility] [address] [place] [address] PCP - General 07/29/13 documented as of this encounter
--- OUTSIDE RECORDS SUMMARY | 2024-05-27 09:51 | XMS_ITS | Encounter Summary ---
[place] [address] Care Team Providers Care Filing And Polishing Supervisor Name Role Phone Ana Her MD Primary Care Provider [phone] Reason for Visit * Reason Comments Schedule Office Case Encounter Details Date Type Department Care Team (Late st Contact Info) Description 04/23/2017 2:00 PM EST Office Visit [place] [phone] Ricky Lowry MD Malignant neoplasm of lower-outer [...] in this encounter Progress Notes * Ricky oLwry MD - 04/23/2017 2:00 PM EST Initial [...] ??Excision with image-guided localization ?Lymph Node Sampling: ??[place] lymph node(s) ?Specimen Laterality: ??Left Tumor ?Histologic [...] ??DCIS not present in specimen Lymph Nodes ?[place] Lymph Nodes: [place] lymph node biopsy performed ?Number of [place] Nodes Examined: ??3 ?Number of Lymph Node(s) [...] scan was in this year at [facility]. There is no history of thromboembolic events. [...] positive documented in this encounter Care Teams Filing And Polishing Supervisor Relationship Specialty Start Date End Date Ana Her MD [address] [place] [address] PCP - General 07/29/13 documented as of this encounter
--- OUTSIDE RECORDS SUMMARY | 2024-05-27 09:51 | XMS_ITS | Encounter Summary ---
Author Organization [facility] [place] [address] Care Team Providers Care Neurobiologist Name Role Phone Ana Her MD Primary Care Provider [phone] Encounter Details Date Type Department Care Team (Latest Contact Info) Description 05/31/2019 10:16 AM EST - 05/31/2019 11:59 PM EST Hospital Encounter Mammography/[place] [phone] Jeanine Lobato APRN [facility] [place] [address] History of breast cancer Discharge Disposition: Home [...] BIRADS CATEGORY 2: Benign findings. * ??[employer] and The Society of [...] breast documented in this encounter Care Teams Neurobiologist Relationship Specialty Start Date End Date Ana Her MD [address] [place] [address] PCP - General 07/29/13 documented as of this encounter
--- OUTSIDE RECORDS SUMMARY | 2024-05-27 09:51 | XMS_ITS | Encounter Summary ---
Author Organization [facility] [place] [address] Care Team Providers Care Egg Caser Name Role Phone Ana Her MD Primary Care Provider [phone] Encounter Details Date Type Department Care Team (Latest Contact Info) Description 01/08/2022 6:11 AM EDT - 01/08/2022 9:40 AM EDT Hospital Encounter [place] [phone] Laura Park MD [facility] [place] [address] Discharge Disposition: Home Social History Tobacco Use [...] a nurse in the Thoracic Clinic at [phone]. After hours or on weekends or holidays please call: [phone] and ask to speak to the Thoracic Physician advertising operations coordinator. Diet: You should follow a clear liquid [...] - 5pm): General Surgery and Bariatric Surgery [phone] Bariatric Surgeons: Drs. Park and John [phone] Aluminum Welder: [phone] Dietitians: [phone] Outside of regular business hours, including weekends and holidays: Ask for General Surgery resident advertising operations coordinator [phone] Please note, this call will be answered [...] as of this encounter H&P Notes * Luara Park MD - 01/08/2022 7:11 AM EDT [...] of left breast of female, estrogen receptor rojmaymkE89.512, Z17.0 ??? Anemia D64.9 ??? Aortic valve [...] DEEP AXILLARY NODE(S) (WRVU 6.43) performed by Malkia Chen MD at [facility] [...] Park MD - 01/08/2022 7:48 AM EDT [facility] Operative Note Patient Name: Digna Olson : [id number] MR#: [id number] Case Date: 01/08/2022 Surgeon: Surgeon(s) and Role: [...] Info Order Time SPECIMEN TO PATHOLOGY Gastric Taliaferro for H Pylori Hiatal hernia Gastric Taliaferro for H Pylori excision 01/08/2022 8:15 AM [...] 8:14 AM EDT Upper GI Endoscopy, Diagnostic (22202) Yes 01/08/2022 7:40 AM EDT Hiatal hernia [...] MD PATHOLOGY/CYTOLOGY ORDERABLES [facility] [place] [address] * Surgical Pathology Report (01/08/2022 8:14 AM EDT) Final Diagnosis [id number] ? Location: [facility]; [facility]; A The signing pathologist has (i) examined the relevant preparation(s) for the specimen(s) and (ii) rendered or confirmed the diagnosis(es). . ?Surgical Pathology DIAGNOSIS A - Gastric ??Antrum for H Pylori, excision: - ??Antrum-type mucosa with reactive gastropathy. Electronically signed by: ?Umang Raymundo MD Verified: ??01/09/2022 16:36 ??Pathologist Performed at: ??-[facility] Dept. of Pathology, [place], [place] SPECIMEN(S) SUBMITTED A - Gastric ??Antrum [...] AM EDT Laura Park MD PATHOLOGY/CYTOLOGY ORDERABLES [facility] [place] [address] * POCT Glucose (01/08/2022 6:33 AM EDT) Glucose, POC 120 65 - 199 mg/dL [facility] Comment: Supplemental ranges: <140 mg/dL before meals <180 mg/dL all other times of the day Blood 01/08/2022 6:33 AM EDT 01/08/2022 6:33 AM EDT Laura Park MD POINT [place] [address] documented in this encounter Visit Diagnoses Not on filedocumented in this encounter Active and Recently Administered Medications Care Teams Egg Caser Relationship Specialty Start Date End Date Ana Her MD [address] [place] [address] PCP - General 07/29/13 documented as of this encounter
--- OUTSIDE RECORDS SUMMARY | 2024-05-27 09:51 | XMS_ITS | Encounter Summary ---
Author Organization [facility] [place] [address] Care Team Providers Care Log Buncher Name Role Phone Ana Her MD Primary Care Provider [phone] Encounter Details Date Type Department Care Team (Latest Contact Info) Description 03/30/2017 8:30 AM [facility] Hospital [place] [address] Malika Chen MD [facility] [place] [address] Malignant neoplasm of upper-outer quadrant of left [...] positive documented in this encounter Care Teams Log Buncher Relationship Specialty Start Date End Date Ana Her MD [address] [place] [address] PCP - General 07/29/13 documented as of this encounter
--- OUTSIDE RECORDS SUMMARY | 2024-05-27 09:51 | XMS_ITS | Encounter Summary ---
Author Organization [facility] [place] [address] Care Team Providers Care Nursing Faculty Name Role Phone Ana Her MD Primary Care Provider [phone] Encounter Details Date Type Department Care Team (Latest Contact Info) Description 06/11/2021 8:41 AM EST - 06/11/2021 11:59 PM [facility] Hospital Encounter Mammography[place] [phone] Jeanine Lobato APRN [facility] [place] [address] Malignant neoplasm of lower-outer quadrant of left [...] Take 40 mg by mouth daily. omega 0-pie-uww-fish-turm salty 417 mg-120 mg- 276 mg-600 mg [...] who have questions please contact the health landcare facilitator that requested your imaging first. ? Jeanine Lobato PLANTING MATERIAL REMOVER IMG MAMMO ORD ERABLES documented in this encounter Visit Diagnoses Diagnosis Malignant neoplasm of lower-outer quadrant of left breast of female, estrogen receptor positive Breast cancer screening by mammogram documented in this encounter Care Teams Nursing Faculty Relationship Specialty Start Date End Date Ana Her MD [address] [place] [address] PCP - General 07/29/13 documented as of this encounter
--- OUTSIDE RECORDS SUMMARY | 2024-05-27 09:51 | XMS_ITS | Encounter Summary ---
[place] [address] Care Team Providers Care Sterile Processing Technologist Name Role Phone Ana Her MD Primary Care Provider [phone] Reason for Visit * Reason Comments Follow-up Encounter Details Date Type Department Care Team (Late st Contact Info) Description 11/29/2019 2:45 PM EDT Office Visit Hematology [place] [phone] Ricky Lowry MD Malignant neoplasm of lower-outer [...] ??Excision with image-guided localization ?Lymph Node Sampling: ??[place] lymph node(s) ?Specimen Laterality: ??Left Tumor ?Histologic [...] ??DCIS not present in specimen Lymph Nodes ?[place] Lymph Nodes: [place] lymph node biopsy performed ?Number of [place] Nodes Examined: ??3 ?Number of Lymph Node(s) [...] stenosis > A Fib. Cardiology at [facility]. S/P successful cardioversion May [...] positive documented in this encounter Care Teams Sterile Processing Technologist Relationship Specialty Start Date End Date Ana Her MD [address] [place] [address] PCP - General 07/29/13 documented as of this encounter
--- OUTSIDE RECORDS SUMMARY | 2024-05-27 09:51 | XMS_ITS | Encounter Summary ---
[place] [address] Care Team Providers Care Rope Coiling Machine Operator Name Role Phone Ana Her MD Primary Care Provider [phone] Encounter Details Date Type Department Care Team (Late st Contact Info) Description 04/09/2017 Abstract Radiation Oncology at [address] [phone] Maria A Antonio, RN Social History Tobacco [...] on filedocumented in this encounter Care Teams Rope Coiling Machine Operator Relationship Specialty Start Date End Date Ana Her MD [address] [place] [address] PCP - General 07/29/13 documented as of this encounter
--- OUTSIDE RECORDS SUMMARY | 2024-05-27 09:51 | XMS_ITS | Encounter Summary ---
Author Organization [facility] Address [facility] [place] [address] Care Team Providers Care Maxillofacial Surgeon Name Role Phone Ana Her MD Primary Care Provider [phone] Encounter Details Date Type Department Care Team (Late st Contact Info) Description 09/03/2021 Ancillary Procedure Radiology Library at [facility] [place] [address] Laura Will MD [facility] [place] [address] Social History Tobacco Use Types Packs/Day Years [...] Chest (09/03/2021 12:00 AM EDT) Narrative [facility] - 11/28/2021 1:22 PM EDT This exam is auto-finalizing. It's purpose is for storage only. Laura Will MD IMG FILM LIBRARY OR DERABLES Performing Organization Address City/State/[facility] Co de Phone Number [place], [place] documented in this encounter Visit Diagnoses Not on filedocumented in this encounter Care Teams Maxillofacial Surgeon Relationship Specialty Start Date End Date Ana Her MD [address] [facility] 1 [place] [address] PCP - General 07/29/13 documented as of this encounter
--- OUTSIDE RECORDS SUMMARY | 2024-05-27 09:51 | XMS_ITS | Encounter Summary ---
Author Organization [facility] [place] [address] Care Team Providers Care Broadcasting Equipment Mechanic Name Role Phone Ana Her MD Primary Care Provider [phone] Encounter Details Date Type Department Care Team (Late st Contact Info) Description 03/30/2017 Notes [place] [address] January Ward MSW Social History Tobacco Use [...] was recently diagnosed with invasive mucinous carcinoma. [facility] attempted to meet with pt in Same Day surgery this morning but she was still in radiology. I spoke with her ex-, Keith, who states she will be staying with him tondenise. Their granddaughters are traveling from [place] and plan to accompany pt to see her assistant film editor at [facility] tomorrow. Pt has been followed by this physician for her cardiac problems. [facility] will continue to provide support and resources to pt. documented in this encounter Plan of Treatment Not on file documented as of this encounter Visit Diagnoses Not on filedocumented in this encounter Care Teams Broadcasting Equipment Mechanic Relationship Specialty Start Date End Date Ana Her MD [address] [facility] [place] [address] PCP - General 07/29/13 documented as of this encounter
--- OUTSIDE RECORDS SUMMARY | 2024-05-27 09:51 | XMS_ITS | Encounter Summary ---
[place] [address] Care Team Providers Care Timber Grader Name Role Phone Ana Her MD Primary Care Provider [phone] 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 * Consultation (Routine) - Closed Specialty Diagnoses / Procedures Referred By Christiano hackett Referred To Contact General Surgery Diagnoses Hiatal hernia Ana Her MD [address] [place] [address] [facility] [address] [place] [phone] Referral ID Status Reason Start Date Expiration Date V isits Requested Visits Authorized [id number] Closed Consult, Test & Treat 09/23/2021 09/23/2022 6 6 Encounter Details Date Type Department Care Team (Late st Contact Info) Description 09/23/2021 Transcribe Orders eDH Incoming Referrals [phone] Ana Her MD [address] [place] [address] Hiatal hernia Social History Tobacco [...] gangrene documented in this encounter Care Teams Timber Grader Relationship Specialty Start Date End Date nAa Her MD [address] [place] [address] PCP - General 07/29/13 documented as of this encounter
--- OUTSIDE RECORDS SUMMARY | 2024-05-27 09:51 | XMS_ITS | Encounter Summary ---
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 Procedures DXA Central Spine, Hip, and/or Whole Body (Generic) Ricky Lowry MD [facility] HEMATOLOGY/[place] [address] [facility] Rad Xray [address] [place] [address] [place] [address] Referral ID Status Reason Start Date Expiration Date V isits Requested Visits Authorized [id number] Closed Specialty Service Requested 05/22/2020 11/19/2021 1 1 Reason for Visit * Diagnostic Test (Routine) - Closed Specialty Diagnoses / Procedures Referred By Contac t Referred To Contact Radiology Diagnoses 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, estrogen receptor positive Osteopenia of neck of femur, unspecified laterality nursing home current use of aromatase inhibitor Procedures DXA Central Spine, Hip, and/or Whole Body (Generic) Ricky Lowry MD [facility] HEMATOLOGY/[place] [address] [facility] Rad Xray [address] [place] [address] Dr Se[place] briscoe [phone] Referral ID Status Reason Start Date Expiration Date V isits Requested Visits Authorized [id number] Closed Specialty Service Requested 05/22/2020 11/19/2021 1 1 Encounter Details Date Type Department Care Team (Latest Contact Info) Description 11/15/2020 2:25 PM EDT - 11/15/2020 11:59 PM EDT Hospital Encounter XRay at [address] [place] [address] Ricky Lowry MD 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 Paper copies will be sent to providers without E- access. If you have received this report without the data sheet and do not have access to [employer] Connect, please contact Radiology Dining Service Worker at [phone] Thursday thru Thursday 8am-4pm. Thank you for letting us participate in the care of this patient. ??If you are a health care provider and have any questions regarding this report, please contact the number below. ??For patients who have questions please contact the health day care center director that requested your imaging first. ? Narrative 11/19/2020 1:09 PM EDT EXAMINATION: DXA CENTRAL SPINE, HIP, AND/OR WHOLE BODY (GENERIC) CLINICAL HISTORY: Aromatase inhibitor therapy for BrCa, ,entered by ordering service TECHNIQUE: Scans were acquired at the lumbar spine, and left hip. FINDINGS: Femoral neck BMD: 0.716 g/cm2 Lowest T-score at the diagnostic region of interest: T-score: -1.2, [place]: femoral neck, WHO diagnosis: low bone mass [...] BMD measurements and plots are available in EClipaboutunder the imaging tab. Paper copies will be sent to providers without - access.If you have received this report without the data sheet and do not haveaccess to [facility], please contact Radiology Dining Service Worker at [phone] Thursday thrrid 8am-4pm. Thank you for letting us participate in the care of this patient. If youare a health care provider and have any questions regarding this report,please contact the number below. For patients who have questions please contactthe health day care center director that requested your imaging first. 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
--- OUTSIDE RECORDS SUMMARY | 2024-05-27 09:51 | XMS_ITS | Encounter Summary ---
[place] [address] Care Team Providers Care Meteorological Equipment Repairer Name Role Phone Ana Her MD Primary Care Provider [phone] Encounter Details Date Type Department Care Team (Late st Contact Info) Description 01/08/2022 7:30 AM EDT - 01/08/2022 8:40 AM EDT Surgery [place] [phone] Laura Park MD [facility] [place] [address] EGD, UPPER GI ENDOSCOPY (WRVU 2.09) Social [...] a nurse in the Thoracic Clinic at [phone]. After hours or on weekends or holidays please call: [phone] and ask to speak to the Thoracic Physician certification technician. Diet: You should follow a clear [...] - 5pm): General Surgery and Bariatric Surgery [phone] Bariatric Surgeons: Drs. Park and John [phone] Ash Pit Worker: [phone] Dietitians: [phone] Outside of regular business hours, including weekends and holidays: Ask for General Surgery resident certification technician [phone] Please note, this call will be answered [...] of left breast of female, estrogen receptor hkpbksanN06.512, Z17.0 ??? Anemia D64.9 ??? Aortic valve [...] performed by Malika Chen MD at [facility] MAIN OR ??? PRO INTRAOP SENTINEL LYMPH ID W/DYE INJECTION Left 03/30/2017 ?? INTRAOPERATIVE ID (MAPPING) SENTINEL LYMPH NODE,INCLUDES INJECTION (WRVU 2.5) performed by Malika Chen MD at [facility] MAIN OR ??? PRO MASTECTOMY PARTIAL Left 03/30/2017 ?? MASTECTOMY PARTIAL (WRVU 10.13) performed by Malika Chen MD at [facility] MAIN OR ?? Cholecystectomy ?? Medications: ?? [...] Park MD - 01/08/2022 7:48 AM EDT [facility] Operative Note Patient Name: Digna Olson : [id number] MR#: [id number] Case Date: 01/08/2022 Surgeon: Surgeon(s) and Role: [...] Info Order Time SPECIMEN TO PATHOLOGY Gastric [place] for H Pylori Hiatal hernia Gastric [place] for H Pylori excision 01/08/2022 8:15 AM [...] 8:14 AM EDT Upper GI Endoscopy, Diagnostic (21673) Yes 01/08/2022 7:40 AM EDT Hiatal hernia [...] MD PATHOLOGY/CYTOLOGY ORDERABLES [facility] [place] [place] [address] * Surgical Pathology Report (01/08/2022 8:14 AM EDT) Final Diagnosis [id number] ? Location: SDP; SD36; A The signing pathologist has (i) examined the relevant preparation(s) for the specimen(s) and (ii) rendered or confirmed the diagnosis(es). . ?Surgical Pathology DIAGNOSIS A - Gastric ??Antrum for H Pylori, excision: - ??Antrum-type mucosa with reactive gastropathy. Electronically signed by: ?Umang Raymundo MD Verified: ??01/09/2022 16:36 ??Pathologist Performed at: ??-[facility] Dept. of Pathology, [place], [place] SPECIMEN(S) SUBMITTED A - Gastric ??Antrum for H Pylori, excision (1) CLINICAL INFORMATION Hiatal hernia SPECIMEN PROCESSING A - Labeled/Fixativ e: Gastric antrum for H. pylori, formalin. Quantity/Size: Single, 0.3 cm. Tissue Description: Soft, pink tissue. Sections/Proces sing: Submitted en toto ??in 1 cassette labeled A1. ??sns 01/09/2022 4:36 PM EDT [facility] GI Biopsy 01/08/2022 8:14 AM EDT 01/08/2022 8:14 AM EDT Laura Park MD PATHOLOGY/CYTOLOGY ORDERABLES Performing Organization Address City/State/[facility] Co de Phone Number [facility] [place] [address] * POCT Glucose (01/08/2022 6:33 AM EDT) Glucose, POC 120 65 - 199 mg/dL [facility] Comment: Supplemental ranges: <140 mg/dL before meals <180 mg/dL all other times of the day Blood 01/08/2022 6:33 AM EDT 01/08/2022 6:33 AM EDT Laura Park MD POINT [place] [address] documented in this encounter Visit Diagnoses Not on filedocumented in this encounter Active and Recently Administered Medications Care Teams Meteorological Equipment Repairer Relationship Specialty Start Date End Date Ana Her MD [address] [facility] [address] [place] [address] PCP - General 07/29/13 documented as of this encounter
--- OUTSIDE RECORDS SUMMARY | 2024-05-27 09:51 | XMS_ITS | Encounter Summary ---
[place] [address] Care Team Providers Care Rug Frame Mounter Name Role Phone Ana Her MD Primary Care Provider [phone] Encounter Details Date Type Department Care Team (Late st Contact Info) Description 11/01/2021 Telephone [place] [phone] Chelsie Lauren Social History Tobacco Use Types [...] on filedocumented in this encounter Care Teams Rug Frame Mounter Relationship Specialty Start Date End Date Ana Her MD [address] [place] [address] PCP - General 07/29/13 documented as of this encounter
--- OUTSIDE RECORDS SUMMARY | 2024-05-27 09:51 | XMS_ITS | Encounter Summary ---
Author Organization [facility] [place] [address] Care Team Providers Care Tool Engineer Name Role Phone Ana Her MD Primary Care Provider [phone] Encounter Details Date Type Department Care Team (Late st Contact Info) Description 05/31/2019 1:00 PM EST Office [place] [address] Jeanine Lobato HIGH WIRE ARTIST [facility] [place] [address] Encounter for follow-up surveillance of breast cancer; [...] was obtained which revealed IDC which is ER/DE+, Her2-. She hasno known breast masses, no adenopathy, no nipple discharge. 02/25/17 Needle biopsies Left breast: Diagnosis: Invasive mucinous carcinoma ? Intermediate grade, modified SBR score = 6 Microcalcifications:??Few calcifications associated with invasive carcinoma ER immunoreactivity: Positive DE immunoreactivity: Positive HER2 FISH: Negative for amplification [...] herex- speak almost daily. He lives in [place]. She enjoys reading and cooking. She does [...] situation. Results: Imaging performed (bilateral mammogram) at [facility] today shows no evidence of malignancy, BIRADS [...] symptoms. Jeanine Lobato APRN Surgical Oncology P [phone] F [phone] [facility] documented in this encounter Plan of Treatment [...] mammogram documented in this encounter Care Teams Tool Engineer Relationship Specialty Start Date End Date Ana Her MD [facility] [address] [facility] 1 [place] [address] PCP - General 07/29/13 documented as of this encounter
--- OUTSIDE RECORDS SUMMARY | 2024-05-27 09:51 | XMS_ITS | Encounter Summary ---
Author Organization [facility] [place] [address] Care Team Providers Care Manager Resort Name Role Phone Ana Her MD Primary Care Provider [phone] Encounter Details Date Type Department Care Team (Late st Contact Info) Description 01/08/2022 7:42 AM EDT Anesthesia Event [place] [address] Alisa Naqvi MD [facility] [place] [address] Anesthesia Record Procedure Summary Procedure Name Responsible [...] cephalic vein (lateral side of arm), left; meor-cla-bebyyv catheter system; Anatomical Landmarks; 20 gauge; Joslyn [...] Procedure Summary Date: 01/08/22 Room / Location: [facility] OR [address] [place] [address] MAIN OR Anesthesia Start: 741 Anesthesia Stop: 825 Procedure: EGD, UPPER GI ENDOSCOPY (N/A Trunk) Diagnosis: (Hiatal hernia) Surgeons: Laura Will MD Responsible Provider: Alisa Naqvi MD Anesthesia Type: general ASA Status: 3 All Anesthesia Providers: Anesthesiologist: Alisa Naqvi MD Fast Food Assistant Restaurant Manager: Nghia Valerio MD Vitals Value Taken Time BP 98/56 01/08/22 0823 Temp Pulse Resp SpO2 99 % 01/08/22826 Pain Level Vitals shown include unvalidated device data. Patient Location: PACU/[facility] Level of Consciousness: Conscious but Sleepy [...] of left breast of female, estrogen receptor olukgvco31/25/2017 ??? Bicuspid aortic valve 06/10/2016 ??? Dyspnea [...] 6.43) performed by Malika Chen MD at [facility] MAIN OR ??? PRO INTRAOP SENTINEL LYMPH ID W/DYE INJECTION Left 03/30/2017 INTRAOPERATIVE ID (MAPPING) SENTINEL LYMPH NODE,INCLUDES INJECTION (WRVU 2.5) performed by Malika Chen MD at [facility] MAIN OR ??? PRO MASTECTOMY PARTIAL Left 03/30/2017 MASTECTOMY PARTIAL (WRVU 10.13) performed by Malika Chen MD at [facility] MAIN OR Social History Tobacco Use [...] mg documented in this encounter Care Teams Manager Resort Relationship Specialty Start Date End Date Ana Her MD [facility] [address] [facility] 1 [place] [address] PCP - General 07/29/13 documented as of this encounter
--- OUTSIDE RECORDS SUMMARY | 2024-05-27 09:51 | XMS_ITS | Encounter Summary ---
Author Organization [facility] [place] [address] Care Team Providers Care Pier Hand Name Role Phone Ana Her MD Primary Care Provider [phone] Reason for Visit * Reason Comments Radiation Consult * Consultation (Routine) - Closed Specialty Diagnoses / Procedures Referred By Christiano hackett Referred To Contact Radiation Oncology Diagnoses Breast cancer Malika Chen MD [facility] [place] [address] Stj Rad Onc Office [address] [place] [phone] Referral ID Status Reason Start Date Expiration Date Visits Re quested Visits Authorized [id number] Closed 03/17/2017 03/17/2018 1 1 Encounter Details Date Type Department Care Team (Late st Contact Info) Description 04/13/2017 10:00 AM EST Office Visit Radiation Oncology at [address] [address] Faye Velez MD [facility] [place] [address] Malignant neoplasm of left female breast, unspecified [...] cm from nipple. Path: Invasive mucinous ca, ER+DC+, Her2 FISH neg. 03/03/[address] [...] she is being evaluated for [place] [facility] [place] 04/15/17; has been [...] performed by Malika Chen MD at [facility] MAIN OR ??? PRO INTRAOP SENTINEL LYMPH ID W/DYE INJECTION Left 03/30/2017 INTRAOPERATIVE ID (MAPPING) SENTINEL LYMPH NODE,INCLUDES INJECTION (WRVU 2.5) performed by Malika Chen MD at [facility] MAIN OR ??? PRO MASTECTOMY, PARTIAL Left 03/30/2017 MASTECTOMY PARTIAL (WRVU 10.13) performed by Malika Chen MD at [facility] MAIN OR Your Medications These [...] A: Breast ca, L, mucinous, gr 2, ER+DC+, Her2 neg, s/p lumpectomy & SNB, pT1b [...] treated breast; cough; shortness of breath; tiredness. Late/oil heaterman side effects to breast discussed include: Treated [...] breast documented in this encounter Care Teams Pier Hand Relationship Specialty Start Date End Date Ana Her MD [address] [place] [address] PCP - General 07/29/13 documented as of this encounter
--- OUTSIDE RECORDS SUMMARY | 2024-05-27 09:51 | XMS_ITS | Encounter Summary ---
[place] [address] Care Team Providers Care Utilities Equipment Repairer Name Role Phone Ana Her MD Primary Care Provider [phone] Encounter Details Date Type Department Care Team (Late st Contact Info) Description 05/10/2018 2:15 PM EST Office Visit [place] [address] Hiral Padgett, WENDY History of breast cancer [...] with image-guided localization ?Lymph Node Sampling: ?? [place] lymph node(s) ?Specimen Laterality: ?? Left Tumor [...] ?DCIS not present in specimen Lymph Nodes ?[place] Lymph Nodes: ?? [place] lymph node biopsy performed ?Number of [place] Nodes Examined: ?3 ?Number of Lymph Node(s) [...] mammogram today is cat 2. Leaving for [place] later today for a cardiac ablation/a fib at [facility]. Objective: Physical Exam Constitutional: She is oriented [...] breast documented in this encounter Care Teams Utilities Equipment Repairer Relationship Specialty Start Date End Date Ana Her MD [address] [place] [address] PCP - General 07/29/13 documented as of this encounter
--- OUTSIDE RECORDS SUMMARY | 2024-05-27 09:51 | XMS_ITS | Encounter Summary ---
Author Organization [facility] [place] [address] Care Team Providers Care Bed Teacher Name Role Phone Ana Her MD Primary Care Provider [phone] Reason for Visit * Reason Comments Follow-up Encounter Details Date Type Department Care Team (Late st Contact Info) Description 10/23/2017 11:00 AM EDT Office Visit Hematology [place] [address] Mayra Page APRN [facility] [place] [address] Malignant neoplasm of lower-outer quadrant of left [...] this encounter Progress Notes * Mayra Page, GEOLOGICAL SPECIALIST - 10/23/2017 11:00 AM EDT Digna Olson [...] ??Excision with image-guided localization ?Lymph Node Sampling: ??[place] lymph node(s) ?Specimen Laterality: ??Left Tumor ?Histologic [...] ??DCIS not present in specimen Lymph Nodes ?[place] Lymph Nodes: [place] lymph node biopsy performed ?Number of [place] Nodes Examined: ??3 ?Number of Lymph Node(s) Examined (sentinel and nonsentinel): 3 ?Lymph Node Involvement: None identified Stage (pTNM) ?Pathological Stage: ?? pT1b pN0 PMH: Past Medical History: Diagnosis Date ??? Breast cancer ??? Fracture of tibia 12/2016 left tibial plateau ??? GERD (gastroesophageal reflux disease) ??? H/O non-insulin dependent diabetes mellitus ??? Spinal stenosis Most recent DEXA scan was 10/28/16 at [facility]. There is no [...] positive documented in this encounter Care Teams Bed Teacher Relationship Specialty Start Date End Date Ana Her MD [address] [place] [address] PCP - General 07/29/13 documented as of this encounter
--- OUTSIDE RECORDS SUMMARY | 2024-05-27 09:51 | XMS_ITS | Encounter Summary ---
[place] [address] Care Team Providers Care Channel Opener Outsoles Name Role Phone Ana Her MD Primary Care Provider [phone] Encounter Details Date Type Department Care Team (Late st Contact Info) Description 12/17/2021 Telephone [place] [phone] Roma Estrada RN Social History Tobacco Use [...] on filedocumented in this encounter Care Teams Channel Opener Outsoles Relationship Specialty Start Date End Date Ana Her MD [address] [place] [address] PCP - General 07/29/13 documented as of this encounter
--- OUTSIDE RECORDS SUMMARY | 2024-05-27 09:51 | XMS_ITS | Encounter Summary ---
[place] [address] Care Team Providers Care Coffee Grinder Name Role Phone Ana Her MD Primary Care Provider [phone] Reason for Visit * Reason Comments Follow-up Encounter Details Date Type Department Care Team (Late st Contact Info) Description 05/22/2020 11:40 AM EST Office Visit [place] [address] Jeanine Lobato APRN [facility] [place] [address] Encounter for follow-up surveillance of breast cancer; [...] was obtained which revealed IDC which is ER/ND positive, Her2 negative. Alma Delia opted against [...] ??Excision with image-guided localization ?Lymph Node Sampling: ??[place] lymph node(s) ?Specimen Laterality: ??Left Tumor ?Histologic [...] ??DCIS not present in specimen Lymph Nodes ?[place] Lymph Nodes: [place] lymph node biopsy performed ?Number of [place] Nodes Examined: ??3 ?Number of Lymph Node(s) [...] speak almost daily. He lives in [place] and is beginning to show early [...] available at [employer] and [employer]. All questions were answered to the patient's satisfaction and they state understanding and agreement with today's treatment plan. They are encouraged to follow up sooner if they develop any new or concerning symptoms. Jeanine Lobato APRN Surgical Oncology P [phone] F [phone] [facility] documented in this encounter Plan [...] who have questions please contact the health rn complex care that requested your imaging first. ? Electronically signed by: Digna Noel MD, [facility] ([phone]), at 06/11/2021 9:20 AM Jeanine Lobato APRN [...] mammogram documented in this encounter Care Teams Coffee Grinder Relationship Specialty Start Date End Date Ana Her MD [facility] [address] [place] [address] PCP - General 07/29/13 documented as of this encounter
--- OUTSIDE RECORDS SUMMARY | 2024-05-27 09:51 | XMS_ITS | Encounter Summary ---
[place] [address] Care Team Providers Care Learning Manager Name Role Phone Ana Her MD Primary Care Provider [phone] Encounter Details Date Type Department Care Team (Late st Contact Info) Description 05/06/2017 Telephone Radiation Oncology at [address] [address] Maria A Antonio RN Social [...] filedocumented in this encounter Care Teams Learning Manager Relationship Specialty Start Date End Date Ana Her MD [address] [facility] 1 [place] [address] PCP - General 07/29/13 documented as of this encounter
--- OUTSIDE RECORDS SUMMARY | 2024-05-27 09:51 | XMS_ITS | Encounter Summary ---
[place] [address] Care Team Providers Care Specialty Development Consultant Name Role Phone Ana Her MD Primary Care Provider [phone] Reason for Visit * Reason Comments Follow-up Encounter Details Date Type Department Care Team (Late st Contact Info) Description 11/15/2020 4:00 PM EDT Office Visit Hematology [place] [phone] Laura Joaquin PA Malignant neoplasm of lower-outer [...] ??Excision with image-guided localization ?Lymph Node Sampling: ??[place] lymph node(s) ?Specimen Laterality: ??Left Tumor ?Histologic [...] ??DCIS not present in specimen Lymph Nodes ?[place] Lymph Nodes: [place] lymph node biopsy performed ?Number of [place] Nodes Examined: ??3 ?Number of Lymph Node(s) [...] Spinal stenosis > A Fib. Cardiology at [facility]. S/P successful cardioversion May 2018. DEXA scan [...] Medical Oncology - Breast & GI Cancers [facility] Pager - [phone] documented in this encounter Plan of Treatment Not on file documented as of this encounter Visit Diagnoses Diagnosis Malignant neoplasm of lower-outer quadrant of left breast of female, estrogen receptor positive documented in this encounter Care Teams Specialty Development Consultant Relationship Specialty Start Date End Date Ana Her MD [address] [place] [address] PCP - General 07/29/13 documented as of this encounter
--- OUTSIDE RECORDS SUMMARY | 2024-05-27 09:51 | XMS_ITS | Encounter Summary ---
Author Organization [facility] [place] [address] Care Team Providers Care Disciplinary Hearing Officer Name Role Phone Ana Her MD Primary Care Provider [phone] Encounter Details Date Type Department Care Team (Late st Contact Info) Description 10/23/2017 9:43 AM EDT - 10/23/2017 11:59 PM EDT Hospital Encounter [place] [phone] Hiral Padgett, WENDY History of breast cancer [...] breast documented in this encounter Care Teams Disciplinary Hearing Officer Relationship Specialty Start Date End Date Ana Her MD [address] [place] [address] PCP - General 07/29/13 documented as of this encounter
--- OUTSIDE RECORDS SUMMARY | 2024-05-27 09:51 | XMS_ITS | Encounter Summary ---
Author Organization [facility] [place] [address] Care Team Providers Care Supervisor Quality Control Name Role Phone Ana Her MD Primary Care Provider [phone] Reason for Visit * Consultation (Routine) - Closed Specialty Diagnoses / Procedures Referred By Christiano hackett Referred To Contact General Surgery Diagnoses Hiatal hernia Ana Her MD [address] [place] [address] [facility] Gen Surgery [address] [place] [address] Referral ID Status Reason Start Date Expiration Date V isits Requested Visits Authorized [id number] Closed Consult, Test & Treat 09/23/2021 09/23/2022 6 6 Encounter Details Date Type Department Care Team (Latest Contact Info) Description 12/05/2021 3:00 PM EDT Office [place] [address] Laura Will MD [facility] [place] [address] Paraesophageal hernia Social History Tobacco [...] of left breast of female, estrogen receptor [id number], Z17.0 ??? Anemia D64.9 ??? Aortic valve [...] MD at [facility] MAIN OR Cholecystectomy Medications: Current Outpatient [...] gangrene documented in this encounter Care Teams Supervisor Quality Control Relationship Specialty Start Date End Date Ana Her MD [address] [place] [address] PCP - General 07/29/13 documented as of this encounter
--- OUTSIDE RECORDS SUMMARY | 2024-05-27 09:51 | XMS_ITS | Encounter Summary ---
[place] [address] Care Team Providers Care Paper Bags Sewing Machine Operator Name Role Phone Ana Her MD Primary Care Provider [phone] 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 * Consultation (Routine) - Closed Specialty Diagnoses / Procedures Referred By Christiano hackett Referred To Contact Plastic Surgery Diagnoses Malignant neoplasm of lower-outer quadrant of left breast of female, estrogen receptor positive Macromastia Jeanine Lobato APRN [facility] [place] [address] [facility] Plastic Surg [address], [place] [address] Referral ID Status Reason Start Date Expiration Date V isits Requested Visits Authorized [id number] Closed Consult, Test & Treat 06/11/2021 06/11/2022 1 1 Encounter Details Date Type Department Care Team (Late st Contact Info) Description 06/11/2021 10:00 AM EST Office Visit [place] [address] Jeanine Lobato APRN [facility] [place] [address] Encounter for follow-up surveillance of [...] this encounter Progress Notes * Jeanine Lobato, INDUSTRIAL RENDERER - 06/11/2021 10:00 AM EST Images from [...] was obtained which revealed IDC which is ER/RI positive, Her2 negative. Alma Delia opted against [...] mm Grade Intermediate Margins Negative ER Positive RI Positive HER-2 Negative OncotypeDx Recurrence Score N/A [...] Family history of ovarian cancer No Ashkenazi Mandaeism heritage No Known genetic mutation Not tested [...] to speak almost daily. He lives in [place] and is beginning to show early signs [...] situation. Results: Imaging performed (bilateral mammogram) at [facility] today shows no evidence of malignancy, BIRADS [...] free apps for your cell phone from [employer] ([employer]) and [employer] ([employer]). All questions were answered to the patient's satisfaction and they state understanding and agreement with today's treatment plan. They are encouraged to follow up sooner if they develop any new or concerning symptoms. Jeanine Lobato APRN Surgical Oncology P [phone] F [phone] [facility] documented in this encounter Plan of [...] breast documented in this encounter Care Teams Paper Bags Sewing Machine Operator Relationship Specialty Start Date End Date Ana Her MD [address] [place] [address] PCP - General 07/29/13 documented as of this encounter
--- OUTSIDE RECORDS SUMMARY | 2024-05-27 09:51 | XMS_ITS | Encounter Summary ---
Author Organization [facility] [place] [address] Care Team Providers Care Cap And Stud Machine Operator Name Role Phone Ana Her MD Primary Care Provider [phone] Reason for Visit * Reason Comments Follow-up Encounter Details Date Type Department Care Team (Late st Contact Info) Description 05/31/2019 11:45 AM EST Office Visit [place] [phone] Ricky Lowry MD Malignant neoplasm of lower-outer [...] ??Excision with image-guided localization ?Lymph Node Sampling: ??Finger lymph node(s) ?Specimen Laterality: ??Left Tumor ?Histologic [...] ??DCIS not present in specimen Lymph Nodes ?Finger Lymph Nodes: Finger lymph node biopsy performed ?Number of Finger Nodes Examined: ??3 ?Number of Lymph Node(s) [...] positive documented in this encounter Care Teams Cap And Stud Machine Operator Relationship Specialty Start Date End Date Ana Her MD [facility] [address] [facility] [address] [place] [address] PCP - General 07/29/13 documented as of this encounter
--- OUTSIDE RECORDS SUMMARY | 2024-05-27 09:51 | XMS_ITS | Encounter Summary ---
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 Procedures DXA Central Spine, Hip, and/or Whole Body (Generic) Ricky Lowry MD [facility] DR HEMATOLOGY/[place] [address] [facility] Rad Xray [address] [place] [address] [place] [address] Referral ID Status Reason Start Date Expiration Date V isits Requested Visits Authorized [id number] Closed Specialty Service Requested 05/22/2020 11/19/2021 1 1 Encounter Details Date Type Department Care Team (Late st Contact Info) Description 05/22/2020 1:15 PM EST Office Visit Hematology and Oncology at [facility] [place] [address] Ricky Lowry MD Malignant neoplasm [...] ??Excision with image-guided localization ?Lymph Node Sampling: ??[place] lymph node(s) ?Specimen Laterality: ??Left Tumor ?Histologic [...] ??DCIS not present in specimen Lymph Nodes ?[place] Lymph Nodes: [place]o lymph node biopsy performed ?Number of [place] Nodes Examined: ??3 ?Number of Lymph Node(s) [...] Spinal stenosis > A Fib. Cardiology at [facility]. S/P successful cardioversion May [...] BMD measurements and plots are available in [employer] under the imaging tab. Paper copies will be sent to providers without [employer] access. If you have received this report without the data sheet and do not have access to [employer], please contact Radiology [facility] at [phone] Thursday thru Thursday 8am-4pm. Thank you for letting us participate in the care of this patient. ??If you are a health care provider and have any questions regarding this report, please contact the number below. ??For patients who have questions please contact the health healthcare applications analyst that requested your imaging first. ? Electronically signed by: Nat Epperson MD, [facility] ([phone]), at 11/19/2020 1:09 PM Narrative 11/19/2020 1:09 [...] BMD measurements and plots are available in [employer] the imaging tab. Paper copies will be sent to providers without [employer] access.If you have received this report without the data sheet and do not haveaccess to [employer], please contact Radiology Waste Salvager at [phone] Thursday thruFriday 8am-4pm. Thank you for letting [...] inhibitors documented in this encounter Care Teams Master Naval Parachutist Relationship Specialty Start Date End Date Ana Her MD [address] [place] [address] PCP - General 07/29/13 documented as of this encounter
--- OUTSIDE RECORDS SUMMARY | 2024-05-27 09:51 | XMS_ITS | Encounter Summary ---
[place] [address] Care Team Providers Care Bread Racker Name Role Phone Ana Her MD Primary Care Provider [phone] Encounter Details Date Type Department Care Team (Late st Contact Info) Description 04/05/2018 Telephone [place] [phone] Adrianna Jones Social History Tobacco Use Types [...] on filedocumented in this encounter Care Teams Bread Racker Relationship Specialty Start Date End Date Ana Her MD [address] [place] [address] PCP - General 07/29/13 documented as of this encounter
--- OUTSIDE RECORDS SUMMARY | 2024-05-27 09:51 | XMS_ITS | Encounter Summary ---
Author Organization [facility] [place] [address] Care Team Providers Care Minor League Baseball Player Name Role Phone Ana Her MD Primary Care Provider [phone] Encounter Details Date Type Department Care Team (Latest Contact Info) Description 05/22/2020 10:46 AM EST - 05/22/2020 11:59 PM [facility] Hospital Encounter Mammography/[place] [phone] Jeanine Lobato APRN [facility] [place] [address] Malignant neoplasm of lower-outer quadrant of left [...] mammogram documented in this encounter Care Teams Minor League Baseball Player Relationship Specialty Start Date End Date Ana Her MD [facility] [address] [facility] [address] [place] [address] PCP - General 07/29/13 documented as of this encounter
--- OUTSIDE RECORDS SUMMARY | 2024-05-27 09:51 | XMS_ITS | Encounter Summary ---
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 Procedures DXA Central-Spine, Hip, And/Or Whole Body (Generic) Ricky Lowry MD [facility] DR HEMATOLOGY/[place] [address] [facility] Rad Xray [address] [place] [address] [place] [address] Referral ID Status Reason Start Date Expiration Date V isits Requested Visits Authorized [id number] Closed Specialty Service Requested 05/10/2018 05/10/2019 1 1 Reason for Visit * Reason Comments Follow-up Encounter Details Date Type Department Care Team (Late st Contact Info) Description 05/10/2018 2:45 PM EST Office Visit Hematology and Oncology at [facility] [place] [address] Ricky Lowry MD Malignant neoplasm [...] ??Excision with image-guided localization ?Lymph Node Sampling: ??[place] lymph node(s) ?Specimen Laterality: ??Left Tumor ?Histologic [...] ??DCIS not present in specimen Lymph Nodes ?[place] Lymph Nodes: [place] lymph node biopsy performed ?Number of [place] Nodes Examined: ??3 ?Number of Lymph Node(s) [...] > A Fib. Cardiology at [facility]. Most recent DEXA scan was last year at [facility]. There is no history of [...] is planned for later this week (at [facility]). No new problems with VELEZ, diplopia, cough, [...] chemotherapy. TACHO. Renewal of anastrazole sent. Given [facility] brochure to share with cousins. [...] BMD measurements and plots are available in [employer] under the imaging tab. Paper copies will be sent to providers without [employer] access. If you have received this report without the data sheet and do not have access to [employer], please contact Radiology Nuclear Fuel Processing Technician at [phone] Thursday thru Thursday 8am-4pm. Thank you for [...] BMD measurements and plots are available in [employer] the imaging tab. Paper copies will be sent to providers without [employer] access.If you have received this report without the data sheet and do not haveaccess to [employer], please contact Radiology Nuclear Fuel Processing Technician at [phone] Thursday thruFriday 8am-4pm. Thank you for letting us participate in the care of this patient. Forquestions regarding this report, please contact the number below. 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
--- OUTSIDE RECORDS SUMMARY | 2024-05-27 09:51 | XMS_ITS | Encounter Summary ---
Author Organization [facility] [place] [address] Care Team Providers Care Operations Label Clerk Name Role Phone Ana Her MD Primary Care Provider [phone] Reason for Visit * Reason Comments Advice Only BBR * Consultation (Routine) - Closed Specialty Diagnoses / Procedures Referred By Christiano hackett Referred To Contact Plastic Surgery Diagnoses Malignant neoplasm of lower-outer quadrant of left breast of female, estrogen receptor positive Macromastia Jeanine Lobato APRN [facility] [place] [address] [facility] [address] [place] [address] Referral ID Status Reason Start Date Expiration Date V isits Requested Visits Authorized [id number] Closed Consult, Test & Treat 06/11/2021 06/11/2022 1 1 Encounter Details Date Type Department Care Team (Late st Contact Info) Description 07/09/2021 8:30 AM EST Office [place] [address] Med Hudson MD [facility] [place] [address] Macromastia Social History Tobacco Use [...] physical with your primary care doctor and Scale Technician clearance Two Weeks prior to Surgery Do [...] Day of Surgery You will need a electric lift truck driver. If you do not have a electric lift truck driver, your surgery will be canceled. [...] For questions pertaining to your surgical date [phone] For nursing related questions [phone] On weekends, holidays or after office hours: Call and ask the liquefaction plant operator to page the Plastic Surgery Resident commanding officer traffic division. documented in this encounter Progress Notes * [...] and was normal. This was performed at [facility]. She has completed a breast specific questionnaire: [...] the time Conservative Therapy Treatments: [facility] PLASTICS CONSERVATIVE THERAPY TREATMENTS 07/09/2021 Physical [...] 6.43) performed by Malika Chen MD at [facility] ??? PRO INTRAOP SENTINEL LYMPH ID W/DYE INJECTION Left 03/30/2017 INTRAOPERATIVE ID (MAPPING) SENTINEL LYMPH NODE,INCLUDES INJECTION (WRVU 2.5) performed by Malika Chen MD at [facility] ??? PRO MASTECTOMY PARTIAL Left 03/30/2017 MASTECTOMY PARTIAL (WRVU 10.13) performed by Malika Chen MD at [facility] OR Family History Problem Relation Age [...] surgery is best done at a realistic group home stable weight. We talked about the [...] revisions for scarring or asymmetry.) Garcia or Simms Pattern Incision: More scarring on breast, but [...] Timeframe: Elective Procedure: Bilateral breast reduction CPT: 71116 Surgical Technique: Garcia, Pedicle Surgical site: Breasts Side: Bilateral Anesthesia: General Follow up: 1 day for drain removal; 7-10 days for HCK PAT: H+P PCP, Cardiac clearance. Need to discontinue blood thinners pre-op? Xarelto documented in this encounter Plan of Treatment Not on file documented as of this encounter Visit Diagnoses Diagnosis Macromastia Hypertrophy of breast documented in this encounter Care Teams Operations Label Clerk Relationship Specialty Start Date End Date Ana Her MD [address] [place] [address] PCP - General 07/29/13 documented as of this encounter
--- OUTSIDE RECORDS SUMMARY | 2024-05-27 09:51 | XMS_ITS | Encounter Summary ---
[place] [address] Care Team Providers Care X Ray Electronics Wireman Name Role Phone Ana Her MD Primary Care Provider [phone] Encounter Details Date Type Department Care Team (Late st Contact Info) Description 05/19/2017 Telephone Hematology [place] [phone] Sandy Chapman Social History Tobacco Use Types [...] in this encounter Care Teams X Ray Electronics Wireman Relationship Specialty Start Date End Date Ana Her MD [address] [place] [address] PCP - General 07/29/13 documented as of this encounter
--- OUTSIDE RECORDS SUMMARY | 2024-05-27 09:52 | XMS_ITS | Encounter Summary ---
Author Organization [facility] Address [facility] [place] [address] Care Team Providers Care Plant Worker Name Role Phone Unavailable Primary Care Provider Unavailabl e Encounter Details Date Type Department Care Team (Latest Contact Info) Description 11/12/2007 - 11/12/2007 11:59 PM EDT Hospital Encounter Radiology Library at [facility] [place] [place] [address] Jackie Cisneros APRN [facility] [place] [address] Discharge Disposition: Home Social History Tobacco Use [...] Only Mammo (11/12/2007 12:00 AM EDT) Narrative [facility] - 02/23/2017 3:31 PM EDT This exam is for storage only and is auto-finalizing. Jackie Cisneros APRN IMG FILM LIBRARY ORD ERABLES NADINE Sethi documented in this encounter Visit Diagnoses Not on filedocumented in this encounter
--- OUTSIDE RECORDS SUMMARY | 2024-05-27 09:52 | XMS_ITS | Encounter Summary ---
Author Organization [facility] Address [facility] [place] [address] Care Team Providers Care Print Decorator Name Role Phone Ana Her MD Primary Care Provider [phone] Encounter Details Date Type Department Care Team (Latest Contact Info) Description 10/28/2016 - 10/28/2016 11:59 PM EDT Hospital Encounter Radiology Library at [facility] [place] [address] Ricky Lowry MD Discharge Disposition: Home Social [...] Images (10/28/2016 12:00 AM EDT) Narrative [facility] - 04/24/2017 2:13 PM EST This exam is for storage only and is auto-finalizing. Ricky Lowry MD IMG FILM LIBRARY ORD ERABLES Performing Organization Address City/State/[facility] Co de Phone Number [place], [place] documented in this encounter Visit Diagnoses Not on filedocumented in this encounter Care Teams Print Decorator Relationship Specialty Start Date End Date Ana Her MD [address] [place] [address] PCP - General 07/29/13 documented as of this encounter
--- OUTSIDE RECORDS SUMMARY | 2024-05-27 09:52 | XMS_ITS | Encounter Summary ---
[place] [address] Care Team Providers Care Distribution Engineering Technologist Name Role Phone Ana Her MD Primary Care Provider [phone] Reason for Visit * Reason Comments Low Back Pain Bilateral Hip Pain when standing or wal jaquelin Encounter Details Date Type Department Care Team (Late st Contact Info) Description 09/12/2014 11:20 AM EDT Office [place] [address] Kris Benoit MD Neurogenic claudication due to [...] pain free. Lumbar MRI from 08/16/2014 from [facility] is notable for multilevel degenerative changes L2-L3, L3-L4, L4-L5, L5-S1. At L2-L3, she has marvdkjf-cq-[id number] spinal stenosis, but she has no leg [...] claudication documented in this encounter Care Teams Distribution Engineering Technologist Relationship Specialty Start Date End Date Ana Her MD [address] [place] [address] PCP - General 07/29/13 documented as of this encounter
--- OUTSIDE RECORDS SUMMARY | 2024-05-27 09:52 | XMS_ITS | Encounter Summary ---
Author Organization [facility] [place] [address] Care Team Providers Care Door Builder Name Role Phone Ana Her MD Primary Care Provider [phone] Encounter Details Date Type Department Care Team (Late st Contact Info) Description 03/19/2017 Telephone [place] [address] Malika Chen MD [facility] [place] [place] [address] Social History Tobacco Use Types Packs/Day Years [...] no unexpected bleeding. [place] [facility] documented in this encounter Plan of Treatment Not on file documented as of this encounter Visit Diagnoses Not on filedocumented in this encounter Care Teams Door Builder Relationship Specialty Start Date End Date Ana Her MD [address] [facility] 1 [place] [address] PCP - General 07/29/13 documented as of this encounter
--- OUTSIDE RECORDS SUMMARY | 2024-05-27 09:52 | XMS_ITS | Encounter Summary ---
Author Organization [place] [address] Care Team Providers Care Raw Finish Mill Operator Name Role Phone Ana Her MD Primary Care Provider [phone] Encounter Details Date Type Department Care Team (Latest Contact Info) Description 02/25/2017 1:31 PM EDT Hospital [place] [address] Maryam Yee MD [facility] [place] [address] Abnormal mammogram Discharge Disposition: Home Social History [...] unspecified documented in this encounter Care Teams Raw Finish Mill Operator Relationship Specialty Start Date End Date Ana Her MD [address] [place] [address] PCP - General 07/29/13 documented as of this encounter
--- OUTSIDE RECORDS SUMMARY | 2024-05-27 09:52 | XMS_ITS | Encounter Summary ---
[place] [address] Care Team Providers Care Mining Manager Name Role Phone Ana Her MD Primary Care Provider [phone] Encounter Details Date Type Department Care Team (Late st Contact Info) Description 02/27/2017 Telephone Hematology [place] [address] Argentina Sanchez RN Social History Tobacco Use [...] a 71 y.o. female with newly diagnosed ER/NC+/HER2 corey pending left breast invasive mucinous cancer (left breast U/S guided biopsy 02/25/2017 at [facility] Alma Delia sounds positive and has support. She will have someone accompany her to appointments. She appears to be coping well but is anxious to meet with a breast surgeon to determine a treatment plan. Alma Delia have a bone SPECT done 1-2 months ago at [facility] and her doctor there questioned an [...] for her review (a link to the [facility] Early Stage Breast Cancer program). The Breast [...] on filedocumented in this encounter Care Teams Mining Manager Relationship Specialty Start Date End Date Ana Her MD [address] [place] [address] PCP - General 07/29/13 documented as of this encounter
--- OUTSIDE RECORDS SUMMARY | 2024-05-27 09:52 | XMS_ITS | Encounter Summary ---
Author Organization [facility] Address [facility] [place] [address] Care Team Providers Care Exhibition Carver Name Role Phone Unavailable Primary Care Provider Unavailabl e Encounter Details Date Type Department Care Team (Latest Contact Info) Description 01/29/2013 - 01/29/2013 11:59 PM EDT Hospital Encounter Radiology Library at [facility] [place] [address] Jackie Cisneros APRN [facility] [place] [address] Discharge Disposition: Home Social History Tobacco Use [...] Only Mammo (01/29/2013 12:00 AM EDT) Narrative [facility] - 02/23/2017 3:26 PM EDT This exam is for storage only and is auto-finalizing. Jackie Cisneros APRN IMG FILM LIBRARY ORD ERABLES NADINE Sethi documented in this encounter Visit Diagnoses Not on filedocumented in this encounter
--- OUTSIDE RECORDS SUMMARY | 2024-05-27 09:52 | XMS_ITS | Encounter Summary ---
Author Organization [facility] [place] [address] Care Team Providers Care Cable Tender Name Role Phone Ana Her MD Primary Care Provider [phone] Encounter Details Date Type Department Care Team (Late st Contact Info) Description 08/16/2014 Orders Only Functional Denominational Program at [facility] [address] [place] [address] Khari Martínez MD Social History Tobacco Use [...] filedocumented in this encounter Care Teams Cable Tender Relationship Specialty Start Date End Date Ana Her MD [facility] [address] [facility] [place] [address] PCP - General 07/29/13 documented as of this encounter
--- OUTSIDE RECORDS SUMMARY | 2024-05-27 09:52 | XMS_ITS | Encounter Summary ---
Author Organization [facility] Address [facility] [place] [address] Care Team Providers Care Herb Counselor Name Role Phone Unavailable Primary Care Provider Unavailabl e Encounter Details Date Type Department Care Team (Latest Contact Info) Description 12/19/2009 - 12/19/2009 11:59 PM EDT Hospital Encounter Radiology Library at [facility] [place] [address] Jackie Cisneros APRN [facility] [place] [address] Discharge Disposition: Home Social History Tobacco Use [...] Only Mammo (12/19/2009 12:00 AM EDT) Narrative [facility] - 02/23/2017 3:29 PM EDT This exam is for storage only and is auto-finalizing. Jackie Cisneros APRN IMG FILM LIBRARY ORD ERABLES NADINE Sethi documented in this encounter Visit Diagnoses Not on filedocumented in this encounter
--- OUTSIDE RECORDS SUMMARY | 2024-05-27 09:52 | XMS_ITS | Encounter Summary ---
Author Organization [facility] Address [address] [place] [address] Care Team Providers Care Drug Inspector Name Role Phone Unknown, Provider MD Primary Care Provider Unava ilable Encounter Details Date Type Department Care Team (Late st Contact Info) Description 08/12/2021 Lab Requisition [facility] Pathology & Laboratory Medicine - [facility] [address] [place] [address] Outr Resulting Lab, Provider Social History Tobacco [...] Priority Date/Time Associated Diagnosis Comments ZZCOVID-19 TEST [facility] PCR Today 08/12/2021 15:00 EDT COVID-19 TESTING Routine 08/12/2021 15:0 0 EDT documented in this encounter Results * COVID-19 TEST [facility] PCR (08/12/2021 15:00 EDT) Swab 08/12/2021 15:0 0 EDT 08/13/2021 16:56 EDT us Provider Outr Resulting Lab MICROBIOLOGY - GENER AL ORDERABLES Final Result [facility] [address] [place] [address] * COVID-19 TESTING (08/12/2021 15:00 EDT) COVID-19 rt-PCR Result Negative Negative 08/14/2021 11:53 EDT [facility] Comment: This test has [...] was performed using the palomo SARS-CoV-2 assay ([employer] on the Palomo 6800 System Performing Lab Palomo [address] [facility] Lab 08/14/2021 11:53 EDT [facility] Swab 08/12/2021 15:0 0 EDT 08/13/2021 16:56 EDT us Provider Outr Resulting Lab MICROBIOLOGY - GENER AL ORDERABLES Final Result [facility] [address] [place] [address] documented in this encounter Visit Diagnoses Not on filedocumented in this encounter Care Teams Drug Inspector Relationship Specialty Start Date End Date Unknown, Provider, PCP - General 01/13/14 documented as of this encounter
--- OUTSIDE RECORDS SUMMARY | 2024-05-27 09:52 | XMS_ITS | Encounter Summary ---
Author Organization [facility] [place] [address] Care Team Providers Care Foam Rubber Mixer Name Role Phone Ana Her MD Primary Care Provider [phone] Encounter Details Date Type Department Care Team (Latest Contact Info) Description 02/17/2017 12:15 AM EDT - 02/17/2017 11:59 PM EDT Hospital Encounter Radiology Library at [facility] [place] [address] Maryam Yee MD [facility] [place] [address] Screening breast examination Discharge Disposition: Home Social [...] Only Mammo (02/17/2017 12:15 AM EDT) Narrative [facility] - 02/19/2017 2:01 PM EDT This exam is for storage only and is auto-finalizing. Maryam Yee MD IMG FILM LIBRARY O RDERABLES [place], [place] documented in this encounter Visit Diagnoses Diagnosis Screening breast examination Other screening breast examination documented in this encounter Care Teams Foam Rubber Mixer Relationship Specialty Start Date End Date Ana Her MD [address] [place] [address] PCP - General 07/29/13 documented as of this encounter
--- OUTSIDE RECORDS SUMMARY | 2024-05-27 09:52 | XMS_ITS | Encounter Summary ---
Author Organization [facility] [place] [address] Care Team Providers Care Marketing Analyst Name Role Phone Ana Her MD Primary Care Provider [phone] Encounter Details Date Type Department Care Team (Latest Contact Info) Description 03/30/2017 8:30 AM [facility] Hospital Encounter [place] [address] Malika Chen MD [facility] [place] [address] Malignant neoplasm of upper-outer quadrant of left [...] mg documented in this encounter Care Teams Marketing Analyst Relationship Specialty Start Date End Date Ana Her MD [address] [place] [address] PCP - General 07/29/13 documented as of this encounter
--- OUTSIDE RECORDS SUMMARY | 2024-05-27 09:52 | XMS_ITS | Encounter Summary ---
Author Organization [facility] Address [facility] [place] [address] Care Team Providers Care Buffet Runner Name Role Phone Ana Her MD Primary Care Provider [phone] Encounter Details Date Type Department Care Team (Latest Contact Info) Description 02/12/2017 - 02/12/2017 11:59 PM EDT Hospital Encounter Radiology Library at [facility] [place] [address] Maryam Yee MD [facility] [place] [address] Screening breast examination Discharge Disposition: Home Social [...] 12:00 AM EDT) Narrative [facility] - 02/19/2017 1:47 PM EDT This exam is for storage only and is auto-finalizing. Maryam Yee MD IMG FILM LIBRARY O RDERABLES Performing Organization Address City/State/[facility] Co de Phone Number [place], [place] documented in this encounter Visit Diagnoses Diagnosis Screening breast examination Other screening breast examination documented in this encounter Care Teams Buffet Runner Relationship Specialty Start Date End Date Ana Her MD [address] [place] [address] PCP - General 07/29/13 documented as of this encounter
--- OUTSIDE RECORDS SUMMARY | 2024-05-27 09:52 | XMS_ITS | Referral Summary ---
Author Organization [facility] Address [address] [place] [address] Care Team Providers Care Drafter Structural Name Role Phone Unknown, Provider MD Primary Care Provider Unava ilable Social History Tobacco Use Types Packs/Day Years Used Date Smoking Tobacco: Never Assessed Comments Unknown Sex and Gender Information Value Date Recorded Sex Assigned at Not on file Legal Sex Female 9:32 EDT Gender Identity Not on file Sexual Orientation Not on file Plan of Treatment Not on file Care Teams Drafter Structural Relationship Specialty Start Date End Date Unknown, Provider, PCP - General 01/13/14
--- OUTSIDE RECORDS SUMMARY | 2024-05-27 09:52 | XMS_ITS | Encounter Summary ---
Author Organization [facility] [place] [address] Care Team Providers Care Hogshead Press Operator Name Role Phone Ana Her MD Primary Care Provider [phone] Encounter Details Date Type Department Care Team (Late st Contact Info) Description 02/27/2017 Orders [place] [address] Malika Chen MD [facility] [place] [address] Malignant neoplasm of left breast in female, [...] LABORATORY Est Glomerular Filtration Rate 58(L) >=60 [facility] Comment: The reported eGFR should be multiplied by 1.2 for patients. The MDRD is not an appropriate measure of renal function for patients with body mass extremes or in patients with acute kidney failure. http://[employer]DHnkdep http://[employer]DHMCnkf Blood specimen (specimen) 03/03/2017 7:50 AM EDT 03/03/2017 8:03 AM EDT Narrative Resulting Agency Comment Spec In Lab Malika Chen MD CHEMISTRY ORDERABLE S [facility] [place] [address] documented in this encounter Visit Diagnoses Diagnosis Malignant neoplasm of left breast in female, estrogen receptor positive, unspecified site of breast documented in this encounter Care Teams Hogshead Press Operator Relationship Specialty Start Date End Date Ana Her MD [address] [facility] [address] [place] [address] PCP - General 07/29/13 documented as of this encounter
--- OUTSIDE RECORDS SUMMARY | 2024-05-27 09:52 | XMS_ITS | Encounter Summary ---
Author Organization [facility] Address [address] [place] [address] Care Team Providers Care Cat Skinner Name Role Phone Unknown, Provider MD Primary Care Provider Unava ilable Encounter Details Date Type Department Care Team (Late st Contact Info) Description 11/19/2023 Lab Requisition [facility] Pathology & Laboratory Medicine - [facility] [address], [place] [address] Outr Resulting Lab, Provider Social History Tobacco [...] 201 - 352 mg/dL 11/20/2023 9:45 EDT [facility] Blood VENOUS BLOOD / Unknown 11/19/2023 6:05 EDT 11/19/2023 17:32 EDT us Provider Outr Resulting Lab CHEMISTRY & BLOOD GA S ORDERABLES Final Result [facility] [address] [place], [place] [address] documented in this encounter Visit Diagnoses Not on filedocumented in this encounter Care Teams Cat Skinner Relationship Specialty Start Date End Date Unknown, Provider, PCP - General 01/13/14 documented as of this encounter
--- OUTSIDE RECORDS SUMMARY | 2024-05-27 09:52 | XMS_ITS | Encounter Summary ---
Author Organization [facility] Address [address] [facility] [place] [address] Care Team Providers Care Professor Of Social Work Name Role Phone Ana Her MD Primary Care Provider [phone] Encounter Details Date Type Department Care Team (Late st Contact Info) Description 09/13/2015 Interpretation Only Radiology [address] [facility] [place] [address] Unknown None Social History Tobacco Use Types [...] 6:56 AM EDT APD Historical Result Principal Coal Gasification Technician: ??MAE ??ESCHBACH IMAGE-INTENSIFIER FILMS: INDICATION: ??Right L4 foraminotomy. FINDINGS: A total of 5.8 seconds of fluoro time was utilized by Geraldine Claros MD. ??Estimated dose is 5.96 mGy. ??Two image-intensifier films record the event. ??They show the lumbosacral junction in the lateral projection with a surgical instrument indicating the level of L4. ??No Radiologist was present for this exam. Mae Shelley DO TOBIN/mn [id number] Procedure Note Unknown - 11/01/2018 APD Historical Result Principal Coal Gasification Technician: MAE SHELLEY IMAGE-INTENSIFIER FILMS: INDICATION: Right L4 foraminotomy. FINDINGS: A total of 5.8 seconds of fluoro time was utilized by Geraldine Claros MD. Estimated dose is 5.96 mGy. Two image-intensifier films record the event. They show thelumbosacral junction in the lateral projection with a surgical instrument indicating the level of L4.No Radiologist was present for this exam. Mae Shelley DO TOBIN/mn [id number] Unknown IMG FLUORO ORDERABLE S documented in this encounter Visit Diagnoses Not on filedocumented in this encounter Care Teams Professor Of Social Work Relationship Specialty Start Date End Date Ana Her MD [address] [place] [address] PCP - General 07/29/13 documented as of this encounter
--- OUTSIDE RECORDS SUMMARY | 2024-05-27 09:52 | XMS_ITS | Encounter Summary ---
[place] [address] Care Team Providers Care Boiler Erector Name Role Phone Ana Her MD Primary Care Provider [phone] Encounter Details Date Type Department Care Team (Latest Contact Info) Description 03/03/2017 7:55 AM EDT Laboratory Appointment Lab [address] [place] [address] Malignant neoplasm of left breast in female, [...] 7:50 AM EDT) Neutrophil % 72.8 % [facility] Neutrophil Absolute 6.45(H) 1.70 - 6.10 x10(3)/mc L [facility] Lymph % 14.4 % [facility] Lymphocytes Abs 1.3 0.9 - 3.2 x10(3)/ L [facility] Monocyte % 5.6 % [facility] Monocyte Abs 0.5 0.3 - 0.9 x10(3)/ L [facility] Eos % 6.1 % [facility] Eosinophils Abs 0.5(H) 0.0 - 0.4 x10(3)/ L [facility] Basophil % 0.6 % [place] [...] MD HEMATOLOGY ORDERABL ES [facility] [place] [address] * (ABNORMAL) Hemogram (03/03/2017 7:50 AM EDT) [...] RDW Standard Deviation 48.3(H) 37.0 - 46.0 [facility] RDW coefficient of variation 13.9 11.5 - 14.1 % [facility] Mean Platelet Volume 11.9 7.6 - 12.9 fL [facility] NRBC% auto 0.0 % [facility] NRBC Absolute 0.000 0.000 - 0.000 x10(3)/ L [facility] Blood specimen (specimen) 03/03/2017 7:50 AM EDT 03/03/2017 8:03 AM EDT Narrative Resulting Agency Comment Spec In Lab Malika Chen MD HEMATOLOGY ORDERABL ES [facility] [place] [address] * (ABNORMAL) Comprehensive metabolic panel (non-fasting) (03/03/2017 [...] or in patients with acute kidney failure. http://[employer] Card/DHnkdep http://[employer].com/DHMCnkf Blood specimen (specimen) 03/03/2017 7:50 AM EDT 03/03/2017 8:03 AM EDT Narrative Resulting Agency Comment Spec In Lab Malika Chen MD [place] [address] documented in this encounter Visit Diagnoses Diagnosis Malignant neoplasm of left breast in female, estrogen receptor positive, unspecified site of breast documented in this encounter Care Teams Boiler Erector Relationship Specialty Start Date End Date Ana Her MD [address] [place] [address] PCP - General 07/29/13 documented as of this encounter
--- OUTSIDE RECORDS SUMMARY | 2024-05-27 09:52 | XMS_ITS | Encounter Summary ---
Author Organization [facility] Address [address] [place] [address] Care Team Providers Care Software Qa Manager Name Role Phone Unavailable Primary Care Provider Unavailabl e Encounter Details Date Type Department Care Team (Latest Contact Info) Description 01/10/2014 20:50 EDT - 01/10/2014 23:59 EDT Hospital Encounter [facility] [address] [place] [address] Unknown, Provider, MD Discharge Disposition: Home or [...]
--- OUTSIDE RECORDS SUMMARY | 2024-05-27 09:52 | XMS_ITS | Encounter Summary ---
Author Organization [facility] [place] [address] Care Team Providers Care Cart Attendant Name Role Phone Ana Her MD Primary Care Provider [phone] Encounter Details Date Type Department Care Team (Late st Contact Info) Description 03/04/2017 Orders [place] [address] Malika Chen MD [facility] [place] [address] Malignant neoplasm of upper-outer quadrant of left [...] MD IMG MAMMO ORDERABLE S * Mammo [place] Node Injection (03/30/2017 9:01 AM EST) Anatomical [...] positive documented in this encounter Care Teams Cart Attendant Relationship Specialty Start Date End Date Ana Her MD [address] [facility] 1 [place] [address] PCP - General 07/29/13 documented as of this encounter
--- OUTSIDE RECORDS SUMMARY | 2024-05-27 09:52 | XMS_ITS | Encounter Summary ---
Author Organization [facility] Address [facility] [place] [address] [address] Care Team Providers Care Urban Sociologist Name Role Phone Unavailable Primary Care Provider Unavailabl e Encounter Details Date Type Department Care Team (Latest Contact Info) Description 12/25/2010 - 12/25/2010 11:59 PM EDT Hospital Encounter Radiology Library [place] [address] Jackie Cisneros APRN [facility] [place] [address] Discharge Disposition: Home Social History Tobacco Use [...] [facility] - 02/23/2017 3:27 PM EDT This exam is for storage only and is auto-finalizing. Jackie Cisneros APRN IMG FILM LIBRARY ORD ERABLES NADINE Sethi documented in this encounter Visit Diagnoses Not on filedocumented in this encounter
--- OUTSIDE RECORDS SUMMARY | 2024-05-27 09:52 | XMS_ITS | Encounter Summary ---
Author Organization [facility] Address [facility] [place] [place] [address] Care Team Providers Care Special Needs Teacher Name Role Phone Unavailable Primary Care Provider Unavailabl e Encounter Details Date Type Department Care Team (Latest Contact Info) Description 03/19/2006 - 03/19/2006 11:59 PM EST Hospital Encounter Radiology Library at [facility] [place] [address] Jackie Cisneros APRN [facility] [place] [address] Discharge Disposition: Home Social History Tobacco Use [...]
--- OUTSIDE RECORDS SUMMARY | 2024-05-27 09:52 | XMS_ITS | Encounter Summary ---
[place] [address] Care Team Providers Care Laboratory Apparatus Glass Blower Name Role Phone Ana Her MD Primary Care Provider [phone] Encounter Details Date Type Department Care Team (Latest Contact Info) Description 03/30/2017 7:27 AM EST - 03/30/2017 1:37 PM EST Hospital Encounter [place] [id number] Brant Chen MD [facility] [place] [address] Discharge Disposition: Home Social History Tobacco Use [...] shower 24 hours Activity as tolerated Call [phone] with any questions Do not soak incision [...] Alma Delia had a bone scan in [place] which was read as possible metastasis in the left tibia. Of note- she fractured this area recently. She has recovered well. ?? PMH HNT NIDDM not on meds Spinal stenosis Fractured left tibial plateau December, GERD ?? FH: Maternal first cousin with breast cancer Brother with rectal cancer Sister with PE ? SH: lives alone. Has good support from sisters who live in [place]. Non smoker. Has a son who lives [...] Chen MD - 03/30/2017 12:27 PM EST [facility] Operative Note Patient Name: Digna Olson : [id number] MR#: [id number] Case Date: 03/30/2017 Surgeon: Surgeon(s) and Role: [...] [place] [address]. Remaining count within the axilla was 1982. [...] MD PATHOLOGY/CYTOLOGY ORDERABLES [facility] [place] [address] * Specimen to Pathology (surgical or derm) (03/30/2017 12:08 PM EST) AP Specimen 03/30/2017 12:0 8 PM EST 03/30/2017 12:08 PM EST Narrative [facility] - 03/30/2017 12:08 PM EST Specimen requisition ordered. ??Separate Pathology report to follow Brant Chen MD PATHOLOGY/CYTOLOGY ORDERABLES Performing Organization Address [facility] [place] [address] * Specimen to Pathology (surgical or derm) (03/30/2017 12:00 PM EST) AP Specimen 03/30/2017 12:0 0 PM EST 03/30/2017 12:00 PM EST Narrative [facility] - 03/30/2017 12:00 PM EST Specimen requisition ordered. ??Separate Pathology report to follow Brant Chen MD PATHOLOGY/CYTOLOGY ORDERABLES Performing Organization Address [facility] Co de Phone Number [place] [phone] * Specimen to Pathology (surgical or derm) (03/30/2017 11:51 AM EST) AP Specimen 03/30/2017 11:5 1 AM EST 03/30/2017 11:51 AM EST Narrative [facility] - 03/30/2017 11:51 AM EST Specimen requisition ordered. ??Separate Pathology report to follow Brant Chen MD PATHOLOGY/CYTOLOGY ORDERABLES Performing Organization Address [facility] [place] [address] * Surgical Pathology Report (03/30/2017 11:50 AM EST) Final Diagnosis [id number] ? Location: [facility]; [facility]; A The signing pathologist has (i) examined the relevant preparation(s) for the specimen(s) and (ii) rendered or confirmed the diagnosis(es). . ?Surgical Pathology DIAGNOSIS A,B - See Synoptic C - Left breast, Deep/lateral margin re-excision - ?Benign fatty breast tissue. D - Left breast, Superficial margin re-excision - ?Benign fatty breast tissue. See Note Note - Cisne ink (indicating additional cranial margin) is also present on this superficial margin re-excision. ---- Specimen Parts: ?? A - Left axilliary sentinel node B - Left breast partial mastectomy Specimen ? Procedure: ??Excision with image-guided localization ? Lymph Node Sampling: ?? [place] lymph node(s) ? Specimen Laterality: ?? Left [...] not present in specimen Lymph Nodes ? [place] Lymph Nodes: ?? [place] lymph node biopsy performed ? Number of [place] Nodes Examined: ?3 ? Number of Lymph [...] Chávez DO Verified: ??04/01/2017 ?Pathologist Performed at: ??-[facility] Dept. of Pathology, [place], [place] CLINICAL INFORMATION Specimen Submitted: A - [...] 0.8 x 0.4 x 0.4 cm. Color: Gleed and yellow. Consistency: Soft. Location: Slices III and IV. Nearest Margin: 0.6 cm to the cranial margin. Other Margins: 0.8 cm to the deep margin, 1.0 cm to the superficial margin, ? > 2 cm from all other margins. OTHER Parenchyma: Predominately fatty with scant fibrous tissue. Wire/Clip: Biopsy marker clip identified within slice IV. SECTIONS/PROCESSI NG: (1) billing customer service representative slice I, lateral margin; (2) slice III, lesion to cranial margin; (3-5) remainder of slice III; (6) slice IV, lesion to cranial margin (clip); (7-8) remainder of slice IV; (9) billing customer service representative slice V; (10) billing customer service representative slice X, medial margin. [...] MD PATHOLOGY/CYTOLOGY ORDERABLES [facility] [place] [address] * Mammo Direct Digital Left (03/30/2017 9:15 [...] Routine documented in this encounter Care Teams Laboratory Apparatus Glass Blower Relationship Specialty Start Date End Date Ana eHr MD [address] [place] [address] PCP - General 07/29/13 documented as of this encounter
--- OUTSIDE RECORDS SUMMARY | 2024-05-27 09:52 | XMS_ITS | Clinical Summary ---
Author Organization [facility] Address [address] [place] [address] Care Team Providers Care Radiologic Electronic Specialist Name Role Phone Unknown, Provider MD [...] COVID-19 Vaccine (2023- season) 2024 Care Teams Radiologic Electronic Specialist Relationship Specialty Start Date End Date Unknown, Provider, PCP - General 01/13/14
--- OUTSIDE RECORDS SUMMARY | 2024-05-27 09:52 | XMS_ITS | Encounter Summary ---
Author Organization [place] [address] Care Team Providers Care Can Reforming Machine Operator Name Role Phone Ana Her MD Primary Care Provider [phone] Encounter Details Date Type Department Care Team (Late st Contact Info) Description 03/03/2017 Notes [place] [address] January Ward MSW Social History Tobacco Use Types Packs/Day Years Used Date Smoking Tobacco: Never Smokeless Tobacco: Never Sex and Gender Information Value Date Recorded Sex Assigned at Not on file Gender Identity Not on file Sexual Orientation Not on file documented as of this encounter Progress Notes * January Ward MSW - 03/03/2017 12:56 PM EDT OFFICE OF CARE MANAGEMENT/CONTINUING TAKER OFF BRAKER MACHINE Reason for referral: Digna Olson is a 71 year old, female who was seen in the multidisciplinarybreast care clinic for a surgical consult as she was recently diagnosed with ER/[place]+, left breast, invasive mucinous carcinoma. After meeting with Dr. Chen, pt has decided to have a lumpectomy/SLNB. If pt needs radiation therapy, she will [facility] at [facility] met with pt to complete a psychosocial assessment and to explain my role in the breast program. Pt was encouraged to contact me if she has any questions or concerns. Living arrangements/social supports: Pt lives alone in [place], [place]. She has support from her family and is accompanied to today's appt by her sisters who live in [place]. Employment/Insurance/Finances: Pt is retired and receives Social Security Correction Benefits. Pt has Medicare A and B [...] Antonia Oliva is the SW for the [facility]. Plan: [facility] will continue to follow pt to assess and assist with their psychosocial needs. DELONTE Moreno [facility]/[place] [phone] Pager #[phone] documented in this encounter Plan of Treatment Not on file documented as of this encounter Visit Diagnoses Not on filedocumented in this encounter Care Teams Can Reforming Machine Operator Relationship Specialty Start Date End Date Ana Her MD [address] [place] [address] PCP - General 07/29/13 documented as of this encounter
--- OUTSIDE RECORDS SUMMARY | 2024-05-27 09:52 | XMS_ITS | Encounter Summary ---
[place] [address] Care Team Providers Care Freelance Translator Name Role Phone Ana Her MD Primary Care Provider [phone] Encounter Details Date Type Department Care Team (Late st Contact Info) Description 07/26/2013 [place] [address] Ana Her MD [facility] [address] [place] [address] Social History Tobacco Use Types Packs/Day Years [...] Non-reportable exam Ana Her MD [facility] FILM LIBRARY ORD ERABLES documented in this encounter Visit Diagnoses Not on filedocumented in this encounter Care Teams Freelance Translator Relationship Specialty Start Date End Date Ana Her MD [address] [place] [address] PCP - General 07/29/13 documented as of this encounter
--- OUTSIDE RECORDS SUMMARY | 2024-05-27 09:52 | XMS_ITS | Encounter Summary ---
[place] [address] Care Team Providers Care Compounder Helper Name Role Phone Ana Her MD Primary Care Provider [phone] Encounter Details Date Type Department Care Team (Late st Contact Info) Description 03/30/2017 11:19 AM EST Anesthesia [place] [address] Bridgette Mclaughlin MD Collins, Sarah J, RESPIRATORY CLINICIAN [address] [place] [address] Anesthesia Record Procedure Summary Procedure Name Responsible [...] 0815; median cubital vein (antecubital fossa), right; anda-dax-uguklt catheter system; 20 gauge, 1 in length; [...] Bridgette Mclaughlin - 03/30/2017 2:13 PM EST [facility] Department of Anesthesiology Post-procedure Note Patient: Digna Olson Procedure Summary Date Anesthesia Start Anesthesia Stop Room / Location 03/30/17 1119 1239 [facility] OR 24 / MH MAIN OR [...] All Anesthesia Providers: Anesthesiologist: Bridgette Mclaughlin MD RESPIRATORY CLINICIAN: Laura Koo CRNA Most Recent Vitals: 03/30/17 [...] risks discussed with patient. Plan discussed with RESPIRATORY CLINICIAN. [facility] Staff Note documented in this encounter [...] r documented in this encounter Care Teams Compounder Helper Relationship Specialty Start Date End Date Ana Her MD [facility] [address] [place] [address] PCP - General 07/29/13 documented as of this encounter
--- OUTSIDE RECORDS SUMMARY | 2024-05-27 09:52 | XMS_ITS | Encounter Summary ---
Author Organization [facility] [place] [address] Care Team Providers Care Aquarium Tank Attendant Name Role Phone Ana Her MD Primary Care Provider [phone] Encounter Details Date Type Department Care Team (Latest Contact Info) Description 02/25/2017 1:36 PM EDT - 02/25/2017 2:58 PM EDT Hospital [place] [phone] Maryam Yee MD [facility] [place] [address] Abnormal mammogram Discharge Disposition: Home Social History [...] unspecified documented in this encounter Care Teams Aquarium Tank Attendant Relationship Specialty Start Date End Date Ana Her MD [address] [place] [address] [address] [place] [address] PCP - General 07/29/13 documented as of this encounter
--- OUTSIDE RECORDS SUMMARY | 2024-05-27 09:52 | XMS_ITS | Encounter Summary ---
Author Organization [facility] Address [address] [place] [address] Care Team Providers Care Medical Service Representative Name Role Phone Unknown, Provider Primary Care Provider Unava ilable Encounter Details Date Type Department Care Team (Late st Contact Info) Description 01/20/2020 Lab Requisition [facility] Pathology & Laboratory Medicine - [facility] [address] [place] [address] Outr Resulting Lab, Provider Social History Tobacco [...] rt-PCR Result NEGATIVE Negative 01/21/2020 16:10 EDT [facility] Comment: 2019-novel Coronavirus (2019-nCoV) [...] in accordance with CLIA regulations, College [employer] [place] (CAP) guidelines (Jul 21, 2019), and FDA guidance (Jul 02, 2019). This test is only for use under the Food and Drug Administration's Emergency Use Authorization. Swab ENTIRE NASOPHARYNX / Unknown 01/20/2020 10:30 EDT 01/20/2020 15:35 EDT us Provider Outr Resulting Lab MICROBIOLOGY - GENER AL ORDERABLES Final Result Performing Organization Address City/State/[facility] Co de Phone Number [facility] [place], [place] * COVID-19 TESTING (01/20/2020 10:30 EDT) COVID-19 rt-PCR Result NEGATIVE Negative 01/21/2020 17:21 EDT [facility] Comment: 2019-novel Coronavirus (2019-nCoV) not [...] in accordance with CLIA regulations, College of [place] [employer]ologists (CAP) guidelines (Jul 21, 2019), and FDA guidance (Jul 02, 2019). This test is only for use under the Food and Drug Administration's Emergency Use Authorization. Performing Lab [facility] 01/21/2020 17:21 EDT [facility] Swab 01/20/2020 10:3 0 EDT 01/20/2020 15:35 EDT us Provider Outr Resulting Lab MICROBIOLOGY - GENER AL ORDERABLES Final Result [facility] [address] [place] [address] [facility] [place], [place] documented in this encounter Visit Diagnoses Not on filedocumented in this encounter Care Teams Medical Service Representative Relationship Specialty Start Date End Date Unknown, Provider, PCP - General 01/13/14 documented as of this encounter
--- OUTSIDE RECORDS SUMMARY | 2024-05-27 09:52 | XMS_ITS | Encounter Summary ---
[place] [address] Care Team Providers Care Paper Coating Machine Operator Name Role Phone Ana Her MD Primary Care Provider [phone] Reason for Visit * Reason Comments Low Back Pain Encounter Details Date Type Department Care Team (Late st Contact Info) Description 08/30/2014 8:35 AM EDT Office [place] [phone] Michelle Hurtado APRN 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 MEDICATIONS & ALLERGIES: [...] care of this patient. Michelle Hurtado MS, HIGH LIFT MULE OPERATOR, FIELD PRODUCER-C [facility] documented in this encounter Plan of Treatment Not on file documented as of this encounter Visit Diagnoses Diagnosis Neurogenic claudication due to lumbar spinal stenosis Spinal stenosis, lumbar region, with neurogenic claudication documented in this encounter Care Teams Paper Coating Machine Operator Relationship Specialty Start Date End Date Ana Her MD [address] [place] [address] PCP - General 07/29/13 documented as of this encounter
--- OUTSIDE RECORDS SUMMARY | 2024-05-27 09:52 | XMS_ITS | Encounter Summary ---
[place] [address] Care Team Providers Care Fulfillment Associate Name Role Phone Ana Her MD Primary Care Provider [phone] Reason for Visit * Reason Comments Establish Care * Consultation (Routine) - Specialty Diagnoses / Procedures Referred By Christiano hackett Referred To Contact Hematology and Oncology Diagnoses Other abnormal and inconclusive findings on diagnostic imaging of breast abnormal mammo, left breast Jackie Cisneros, WENDY [address] [place] [address] [facility] Hem Onc [address] [place] [address] Referral ID Status Reason Start Date Expiration Date V isits Requested Visits Authorized [id number] Consult, Test & Treat Connection Center 02/17/2017 05/20/2017 6 6 Encounter Details Date Type Department Care Team (Late st Contact Info) Description 03/03/2017 9:00 AM EDT Office [place] [address] Malika Chen MD [facility] [place] [address] Argentina Sanchez, RN Malignant neoplasm [...] she will meet with medical and radiation ([facility]) oncologists after surgery. 4. Contact phone number for questions or concerns in the immediate post- operative period. 5. Comprehensive Breast Program Binder. 6. Post Breast Surgery Exercises handout created by physical therapists at [facility]. 7. Breast Cancer Treatment Process care map provided and reviewed. 8. Things to Consider...What I Wish I Knew advice from breast cancer patients handout provided. She verbalized understanding of the plan of care and states all her questions were answered. Twentyminutes was spent in education and providing support. Alma Delia has our contact information. She will call the preparation room manager to schedule surgery after she has [...] was obtained which revealed IDC which is ER/LA+, her2-. She has no known breast masses, no adenopathy, no nipple discharge. Alma Delia had a bone scan in [place] which was read as possible metastasis in the left tibia. Of note- she fractured this area recently. She has recovered well. PMH HNT NIDDM not on meds Spinal stenosis Fractured left tibial plateau December, GERD FH: Maternal first cousin with breast cancer Brother with rectal cancer Sister with PE SH: lives alone. Has good support from sisters who live in [place]. Non smoker. Has a son who lives [...] positive documented in this encounter Care Teams Fulfillment Associate Relationship Specialty Start Date End Date Ana Her MD [address] [place] [address] PCP - General 07/29/13 documented as of this encounter
--- OUTSIDE RECORDS SUMMARY | 2024-05-27 09:52 | XMS_ITS | Encounter Summary ---
Author Organization [facility] Address [facility] [place] [address] Care Team Providers Care Sidewalk Inspector Name Role Phone Unavailable Primary Care Provider Unavailabl e Encounter Details Date Type Department Care Team (Latest Contact Info) Description 12/08/2008 - 12/08/2008 11:59 PM EDT Hospital Encounter Radiology Library at [facility] [place] [address] Jackie Cisneros APRN [facility] [place] [address] [place] [address] Discharge Disposition: Home Social History Tobacco Use [...] AM EDT) Narrative [facility] - 02/23/2017 3:30 PM EDT This exam is for storage only and is auto-finalizing. Jackie Cisneros APRN IMG FILM LIBRARY ORD ERABLES NADINE Sethi documented in this encounter Visit Diagnoses Not on filedocumented in this encounter
--- OUTSIDE RECORDS SUMMARY | 2024-05-27 09:52 | XMS_ITS | Encounter Summary ---
[place] [address] Care Team Providers Care Direct Care Staffer Name Role Phone Ana Her MD Primary Care Provider [phone] Encounter Details Date Type Department Care Team (Late st Contact Info) Description 03/18/2017 Telephone [place] [phone] Bryanna Marsh RN Social History Tobacco Use [...] a colonoscopy done at [facility] and developed atrial fibrillation; she has been started on blood thinners. She was just discharged from the [facility] hospital, and called us to let us [...] give Digna a call her number is [phone]. The below is from Dr. Chen visit with Digna. Assessment and Plan: ?? 71 yo female with radiographic stage I ER/KY+, HER2- IDC of the left breast. No [...] on filedocumented in this encounter Care Teams Direct Care Staffer Relationship Specialty Start Date End Date Ana Her MD [address] [place] [address] PCP - General 07/29/13 documented as of this encounter
--- OUTSIDE RECORDS SUMMARY | 2024-05-27 09:52 | XMS_ITS | Encounter Summary ---
Author Organization [facility] Address [address] [place] [address] Care Team Providers Care Switchboard Mechanic Name Role Phone Unknown, Provider MD Primary Care Provider Unava ilable Encounter Details Date Type Department Care Team (Late st Contact Info) Description 04/06/2022 Lab Requisition [facility] Pathology & Laboratory Medicine - [facility] [address] [place] [address] Outr Resulting Lab, Provider Social History Tobacco [...] Salmonella PCR Negative Negative 04/06/2022 22:54 EST [facility] Shigella/Enteroin vasive E. coli Negative Negative 04/06/2022 22:54 EST [facility] HN LAB CAMPYLOBACTER PCR Negative Negative 04/06/2022 22:54 EST [facility] Shiga Toxin PCR Negative Negative 22:54 EST [facility] Feces SPECIMEN FROM RECTUM / Unknown 04/05/2022 10:41 EST 04/06/2022 18:31 EST us Provider Outr Resulting Lab MICROBIOLOGY - GENER AL ORDERABLES Final Result [facility] [address] [place] [address] documented in this encounter Visit Diagnoses Not on filedocumented in this encounter Care Teams Switchboard Mechanic Relationship Specialty Start Date End Date Unknown, Provider, PCP - General 01/13/14 documented as of this encounter
--- OUTSIDE RECORDS SUMMARY | 2024-05-27 09:52 | XMS_ITS | Encounter Summary ---
[place] [address] Care Team Providers Care Distribution Engineering Technologist Name Role Phone Ana Her MD Primary Care Provider [phone] Reason for Visit * Reason Onset Date Comments Referral 07/29/2013 Encounter Details Date Type Department Care Team (Late st Contact Info) Description 07/29/2013 [place] [address] Sophia Palacios Referral Social History Tobacco Use [...] on filedocumented in this encounter Care Teams Distribution Engineering Technologist Relationship Specialty Start Date End Date Ana Her MD [address] [facility] [address] [place] [address] PCP - General 07/29/13 documented as of this encounter
--- OUTSIDE RECORDS SUMMARY | 2024-05-27 09:52 | XMS_ITS | Encounter Summary ---
Author Organization [facility] Address [facility] [place] [address] Care Team Providers Care Hearse Driver Name Role Phone Ana Her MD Primary Care Provider [phone] Encounter Details Date Type Department Care Team (Latest Contact Info) Description 02/23/2017 3:50 PM EDT - 02/23/2017 11:59 PM EDT Hospital Encounter Radiology Library at [facility] [phone] Jackie Cisneros APRN [address] [place] [address] Left breast mass Discharge Disposition: Home Social [...] recommended. Please note: The interpretation of the [facility] Breast Imaging Radiologist subspecialist may differ from the original radiologists interpretation. This is usually not due to a deficiency of the original interpreting radiologist, rather due to the greater skill level afforded by sub-specialization in the field and/or reasonable variations in interpretations. If you have a concern regarding the D-H interpretation you may contact the [facility] Breast Pig Lead Melter Helper Office at . I have personally reviewed [...] the care of this patient. STUDIES FROM: [facility] DATES: Screening mammogram 02/12/2017, [...] alter the care of thispatient. STUDIES FROM: [facility] DATES: Screening mammogram 02/12/2017, [...] recommended. Please note: The interpretation of the [facility] BreastImaging Radiologist subspecialist may differ from the original radiologists interpretation. This is usually not due to a deficiency of the original interpreting radiologist, rather due to the greater skill level affordedby sub-specialization in the field and/or reasonable variations ininterpretations. If you have a concern regarding the D-H interpretation you may [facility] Pig Lead Melter Helper Office at . I have personally reviewed the image(s) and the residents interpretationand agree with the findings, ROBERT THOMPSON at 02/24/2017 8:41 AM 8:41 AM Jackie Cisneros WENDY IMG OUTSIDE INTERPRE TATION ORDERABLES documented in this encounter Visit Diagnoses Diagnosis Left breast mass Lump or mass in breast documented in this encounter Care Teams Hearse Driver Relationship Specialty Start Date End Date Ana Her MD [address] [place] [address] PCP - General 07/29/13 documented as of this encounter
--- OUTSIDE RECORDS SUMMARY | 2024-05-27 09:52 | XMS_ITS | Encounter Summary ---
[place] [address] Care Team Providers Care Commercial Pest Control Representative Name Role Phone Ana Her MD Primary Care Provider [phone] 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 * Surgical (Routine) - Closed Specialty Diagnoses / Procedures Referred By Christiano hackett Referred To Contact Orthopaedics Diagnoses Lumbar spinal stenosis Michelle Hurtado APRN [facility] [place] [address] [facility] [address] [place] [address] Referral ID Status Reason Start Date Expiration Date V isits Requested Visits Authorized [id number] Closed Consult, Test & Treat 09/08/2014 09/08/2015 3 3 Encounter Details Date Type Department Care Team (Late st Contact Info) Description 09/08/2014 Orders [place] [address] Michelle Hurtado UNIVERSITY MANAGER [facility] [place] [address] Lumbar spinal stenosis Social History Tobacco Use [...] claudication documented in this encounter Care Teams Commercial Pest Control Representative Relationship Specialty Start Date End Date Ana Her MD [facility] [address] [facility] 1 [place] [address] PCP - General 07/29/13 documented as of this encounter
--- OUTSIDE RECORDS SUMMARY | 2024-05-27 09:52 | XMS_ITS | Encounter Summary ---
Author Organization [facility] [place] [address] Care Team Providers Care Log Data Technician Name Role Phone Ana Her MD Primary Care Provider [phone] Encounter Details Date Type Department Care Team (Late st Contact Info) Description 03/30/2017 9:30 AM EST - 03/30/2017 11:28 AM EST Surgery [place] [phone] Brant Chen MD [facility] [place] [address] MASTECTOMY PARTIAL (WRVU 10.13) Social History Tobacco [...] shower 24 hours Activity as tolerated Call [phone] with any questions Do not soak incision [...] Alma Delia had a bone scan in [place] which was read as possible metastasis in the left tibia. Of note- she fractured this area recently. She has recovered well. ?? PMH HNT NIDDM not on meds Spinal stenosis Fractured left tibial plateau [place], 2017 GERD ?? FH: Maternal first cousin with breast cancer Brother with rectal cancer Sister with PE ? SH: lives alone. Has good support from sisters who live in [place]. Non smoker. Has a son who lives [...] MD - 03/30/2017 12:27 PM EST [facility] Operative Note Patient Name: Digna Olson : [id number] MR#: [id number] Case Date: 03/30/2017 Surgeon: Surgeon(s) and Role: [...] [place] [address]. Remaining count within the axilla was 1982. [...] Chen MD PATHOLOGY/CYTOLOGY ORDERABLES [facility] [place] [address] * Specimen to Pathology (surgical or derm) (03/30/2017 12:08 PM EST) AP Specimen 03/30/2017 12:0 8 PM EST 03/30/2017 12:08 PM EST Narrative [facility] - 03/30/2017 12:08 PM EST Specimen requisition ordered. ??Separate Pathology report to follow Brant Chen MD PATHOLOGY/CYTOLOGY ORDERABLES Performing Organization Address [facility] Co de Phone Number [facility] [place] [address] * Specimen to Pathology (surgical or derm) (03/30/2017 12:00 PM EST) AP Specimen 03/30/2017 12:0 0 PM EST 03/30/2017 12:00 PM EST Narrative [facility] - 03/30/2017 12:00 PM EST Specimen requisition ordered. ??Separate Pathology report to follow Brant Chen MD PATHOLOGY/CYTOLOGY ORDERABLES Performing Organization Address [facility] [place] [address] * Specimen to Pathology (surgical or derm) (03/30/2017 11:51 AM EST) AP Specimen 03/30/2017 11:5 1 AM EST 03/30/2017 11:51 AM EST Narrative [facility] - 03/30/2017 11:51 AM EST Specimen requisition ordered. ??Separate Pathology report to follow Brant Chen MD PATHOLOGY/CYTOLOGY ORDERABLES Performing Organization Address [facility] Co de Phone Number [facility] [place] [phone] * Surgical Pathology Report (03/30/2017 11:50 AM EST) Final Diagnosis [id number] ? Location: [facility]; A The signing pathologist has (i) examined the relevant preparation(s) for the specimen(s) and (ii) rendered or confirmed the diagnosis(es). . ?Surgical Pathology DIAGNOSIS A,B - See Synoptic C - Left breast, Deep/lateral margin re-excision - ?Benign fatty breast tissue. D - Left breast, Superficial margin re-excision - ?Benign fatty breast tissue. See Note Note - [place] ink (indicating additional cranial margin) is also present on this superficial margin re-excision. ---- Specimen Parts: ?? A - Left axilliary sentinel node B - Left breast partial mastectomy Specimen ? Procedure: ??Excision with image-guided localization ? Lymph Node Sampling: ?? Mabel lymph node(s) ? Specimen Laterality: ?? Left [...] not present in specimen Lymph Nodes ? Mabel Lymph Nodes: ?? Mabel lymph node biopsy performed ? Number of Mabel Nodes Examined: ?3 ? Number of Lymph [...] DO Verified: ??04/01/2017 ?Pathologist Performed at: ??-[facility] Dept. of Pathology, [place], [place] CLINICAL INFORMATION Specimen Submitted: A - [...] 0.8 x 0.4 x 0.4 cm. Color: Colstrip and yellow. Consistency: Soft. Location: Slices III and IV. Nearest Margin: 0.6 cm to the cranial margin. Other Margins: 0.8 cm to the deep margin, 1.0 cm to the superficial margin, ? > 2 cm from all other margins. OTHER Parenchyma: Predominately fatty with scant fibrous tissue. Wire/Clip: Biopsy marker clip identified within slice IV. SECTIONS/PROCESSI NG: (1) key account representative slice I, lateral margin; (2) slice III, lesion to cranial margin; (3-5) remainder of slice III; (6) slice IV, lesion to cranial margin (clip); (7-8) remainder of slice IV; (9) key account representative slice V; (10) key account representative slice X, medial margin. (R10) Ischemic [...] Chen MD PATHOLOGY/CYTOLOGY ORDERABLES [facility] [place] [address] * Mammo Direct Digital Left (03/30/2017 9:15 [...] Routine documented in this encounter Care Teams Log Data Technician Relationship Specialty Start Date End Date Ana Her MD [address] [place] [address] PCP - General 07/29/13 documented as of this encounter
--- OUTSIDE RECORDS SUMMARY | 2024-05-27 09:52 | XMS_ITS | Encounter Summary ---
Author Organization [facility] Address [facility] [place] [address] Care Team Providers Care Radiological Technician Name Role Phone Unavailable Primary Care Provider Unavailabl e Encounter Details Date Type Department Care Team (Latest Contact Info) Description 04/04/2005 - 04/04/2005 11:59 PM EST Hospital Encounter Radiology Library [place] [address] Jackie Cisneros APRN [facility] [place] [address] [place] [address] Discharge Disposition: Home Social History Tobacco Use [...]
--- OUTSIDE RECORDS SUMMARY | 2024-05-27 09:52 | XMS_ITS | Encounter Summary ---
Author Organization [facility] Address [address] [place] [address] Care Team Providers Care Tree Trimmer Helper Name Role Phone Unknown, Provider MD Primary Care Provider Unava ilable Encounter Details Date Type Department Care Team (Late st Contact Info) Description 10/26/2022 Lab Requisition [facility] Pathology & Laboratory Medicine - [facility] [address] [place] [address] Outr Resulting Lab, Provider Social History Tobacco [...] Neg and Giardia Antigen Neg 13:48 EDT [facility] Feces SPECIMEN FROM RECTUM / Unknown 10/25/2022 15:00 EDT 10/26/2022 15:25 EDT us Provider Outr Resulting Lab MICROBIOLOGY - GENER AL ORDERABLES Final Result [facility] [address] [place] [address] * FECAL BACTERIAL PATHOGENS BY PCR (10/25/2022 15:00 EDT) Salmonella PCR Negative Negative 10/26/2022 19:17 EDT [facility] Shigella/Enteroin vasive E. coli Negative Negative 10/26/2022 19:17 EDT [facility] HN LAB CAMPYLOBACTER PCR Negative Negative 10/26/2022 19:17 EDT [facility] Shiga Toxin PCR Negative Negative 19:17 EDT [facility] Feces SPECIMEN FROM RECTUM / Unknown 10/25/2022 15:00 EDT 10/26/2022 15:25 EDT us Provider Outr Resulting Lab MICROBIOLOGY - GENER AL ORDERABLES Final Result Performing Organization Address [facility] Co de Phone Number [facility] [address] [place] [address] * OVA/PARASITE EXAM (10/25/2022 15:00 EDT) Parasite No ova and parasites seen. 10/28/2022 15:08 EDT [facility] Feces SPECIMEN FROM RECTUM / Unknown 10/25/2022 15:00 EDT 10/26/2022 15:25 EDT Narrative [facility] - 10/28/2022 15:08 EDT (If Cryptosporidium, Cyclospora, or Microsporidium are suspected, specific tests must be requested.) Single negative specimen does not rule out the possibility of a parasitic infection. us Provider Outr Resulting Lab MICROBIOLOGY - GENER AL ORDERABLES Final Result Performing Organization Address City/[facility]/ZIP Co de Phone Number [facility] [address] [place] [address] documented in this encounter Visit Diagnoses Not on filedocumented in this encounter Care Teams Tree Trimmer Helper Relationship Specialty Start Date End Date Unknown, Provider, PCP - General 9/12/14 documented as of this encounter
--- OUTSIDE RECORDS SUMMARY | 2024-05-27 09:52 | XMS_ITS | Encounter Summary ---
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
--- OUTSIDE RECORDS SUMMARY | 2024-05-27 09:52 | XMS_ITS | Encounter Summary ---
Author Organization [facility] Address [facility] [place] [address] Care Team Providers Care Roll Inspector Name Role Phone Ana Her MD Primary Care Provider [phone] Encounter Details Date Type Department Care Team (Latest Contact Info) Description 02/17/2017 - 02/17/2017 12:14 AM EDT Hospital Encounter Radiology Library at [facility] [place] [address] Maryam Yee MD [facility] [place] [address] Screening breast examination Discharge Disposition: Home Social [...] Only Mammo (02/17/2017 12:00 AM EDT) Narrative [facility] - 02/19/2017 1:59 PM EDT This exam is for storage only and is auto-finalizing. Maryam Yee MD IMG FILM LIBRARY O RDERABLES Performing Organization Address City/State/[facility] Co de Phone Number [place], [place] documented in this encounter Visit Diagnoses Diagnosis Screening breast examination Other screening breast examination documented in this encounter Care Teams Roll Inspector Relationship Specialty Start Date End Date Ana Her MD [address] [place] [address] PCP - General 07/29/13 documented as of this encounter
--- OUTSIDE RECORDS SUMMARY | 2024-05-27 09:52 | XMS_ITS | Encounter Summary ---
Author Organization [facility]ending [facility] Address [facility] [place] [address] Care Team Providers Care First Officer Name Role Phone Ana Her MD Primary Care Provider [phone] Encounter Details Date Type Department Care Team (Latest Contact Info) Description 04/24/2014 - 04/24/2014 11:59 PM EST Hospital Encounter Radiology Library at [facility] [place] [address] Maryam Yee MD [facility] [place] [address] Screening breast examination Discharge Disposition: Home Social [...] Only Mammo (04/24/2014 12:00 AM EST) Narrative [facility] - 02/19/2017 1:46 PM EDT This exam is for storage only and is auto-finalizing. Maryam Yee MD IMG FILM LIBRARY O RDERABLES [place], [place] documented in this encounter Visit Diagnoses Diagnosis Screening breast examination Other screening breast examination documented in this encounter Care Teams First Officer Relationship Specialty Start Date End Date Ana Her MD [address] [facility] [address] [place] [address] PCP - General 07/29/13 documented as of this encounter
--- OUTSIDE RECORDS SUMMARY | 2024-05-27 09:52 | XMS_ITS | Encounter Summary ---
Author Organization [facility] [place] [address] Care Team Providers Care It Security Architect Name Role Phone Ana Her MD Primary Care Provider [phone] Encounter Details Date Type Department Care Team (Latest Contact Info) Description 02/25/2017 2:59 PM EDT - 02/25/2017 11:59 PM EDT Hospital [place] [phone] Enzo Burkett MD Abnormal finding on breast [...] with invasive carcinoma. Enzo Burkett MD [facility] MAMMO ORDERABLES * Surgical Pathology Report (02/25/2017 3:01 PM EDT) Final Diagnosis [id number] ? Location: 3L The signing pathologist has [...] FISH. ??Direct analysis was performed using the [employer] Kit. ??Slide adequacy and signal enumeration were [...] factor receptor 2 testing in breast cancer: [place] [employer] Clinical On[employer] clinical practice guideline update. J Clin Oncol. 2013 Nov . Reviewed by: Kyara Logan MD Grounds And Nursery Specialist, Molecular Pathology _ Electronically signed by: ??Epifanio Serra MD Verified: ??03/04/2017 ?Pathologist Performed at: ??-[facility] Dept. of Pathology, [place], [place] ? Addendum ADDENDUM DISCUSSION Immunohistochemist ry [...] The assays were performed according to the physician specialist ' s instructions using Anti-ER (SP1) and Anti-DE (16) antibodies. Electronically signed by: ??Epifanio Serra MD Verified: ??02/27/2017 ?Pathologist Performed at: ??-[facility] Dept. 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 of Pathology, [place], [place] DISCUSSION Studies for ER, DE, and [...] g: (T4) ??elian 03/04/2017 2:01 PM EDT [facility] BREAST STRUCTURE / Unknown 02/25/2017 3:01 PM EDT 02/25/2017 3:01 PM EDT Enzo Burkett MD PATHOLOGY/CYTOLOGY O RDERABLES [facility] [place] [address] documented in this encounter Visit Diagnoses Diagnosis Abnormal finding on breast imaging Other (abnormal) findings on radiological examination of breast documented in this encounter Care Teams It Security Architect Relationship Specialty Start Date End Date Ana Her MD [address] [place] [address] PCP - General 07/29/13 documented as of this encounter
--- OUTSIDE RECORDS SUMMARY | 2024-05-27 09:52 | XMS_ITS | Encounter Summary ---
Author Organization [facility] [place] [address] Care Team Providers Care Casino Floorperson Name Role Phone Ana Her MD Primary Care Provider [phone] Encounter Details Date Type Department Care Team (Latest Contact Info) Description 02/25/2017 1:32 PM EDT - 02/25/2017 1:35 PM EDT Hospital [place] [phone] Maryam Yee MD [facility] [place] [address] Abnormal mammogram Discharge Disposition: Home Social History [...] PATHOLOGY/CYTOLOGY O [facility] [place] [address] documented in this encounter Visit Diagnoses Diagnosis [...] mg documented in this encounter Care Teams Casino Floorperson Relationship Specialty Start Date End Date Ana Her MD [address] [place] [address] PCP - General 07/29/13 documented as of this encounter
--- OUTSIDE RECORDS SUMMARY | 2024-05-27 09:52 | XMS_ITS | Encounter Summary ---
Author Organization [facility] Address [address] [place] [address] Care Team Providers Care Communications Assistant Name Role Phone Unknown, Provider Primary Care Provider Unava ilable Encounter Details Date Type Department Care Team (Late st Contact Info) Description 03/17/2017 Results Only [facility] [phone] Kat Lazaro MD [facility] [address] [place], [place] [id number] Social History Tobacco Use Types Packs/Day Years [...] ? DIGNA KIMBROUGH ? Accession #: ? [id number] ? : ? 1945 (Age: 71) ??F [...] (ASCP) 03/18/2017 8:14 AM End of Report [facility] 03/17/2017 16:1 5 EST 03/17/2017 16:15 EST us Kat Lazaro MD PATHOLOGY ORDERABLES Fin al Result [facility] [address] [place] [address] documented in this encounter Visit Diagnoses Not on filedocumented in this encounter Care Teams Communications Assistant Relationship Specialty Start Date End Date Unknown, Provider, PCP - General 01/13/14 documented as of this encounter
--- OUTSIDE RECORDS SUMMARY | 2024-05-30 11:15 | XMS_ITS | Data Portability ---
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 Not available 12/02/2023 14:47:23 03/04/2024 03/04/2024 The total time devoted to today's encounter, including both the cyce-qn-izxi time with the patient and/or family/caregi josefina and eob-rmma-va-f patrick time I personally spent is 44 minutes. Not available 03/04/2024 17:47:18 05/23/2024 05/23/2024 The total time devoted to today's encounter, including both the fqjp-qs-sipt time with the patient and/or family/caregi josefina and khx-rthb-pj-f patrick time I personally spent is 42 minutes. Not available 05/23/2024 15:47:33 Plan of Treatment Reminders Order Date Submit Date Provider Last Modified By Organization Details Last Modified Time Details Appointments None recorded. Lab BMP, serum or plasma 2023 024 [facility] (Registration ), [address] [place] [address] [place], [address], 4 08:56:49 magnesium, serum or plasma 2023 024 [facility] (Registration ), [address] [place] [address] [place], [address], 4 07:38:05 BNP (B-type natriureti c peptide), serum or plasma 2023 024 [facility] (Registration ), [address] [place] [address] [place], [address], 4 20:48:47 CBC 2023 024 [facility] (Registration ), [address] [place] [address] [place], [address], 4 16:35:23 BMP, serum or plasma 2023 024 [facility] (Registration ), [address] [place] [address] [place], [address], 4 11:42:49 vitamin D, 25-hydroxy , total, serum 2023 024 [facility] (Registration ), [address] [place] [address] [place], [address], 4 16:09:19 HbA1c (hemoglobi n A1c), blood 2023 024 [facility] (Registration ), [address] [place] [address] [place], [address], 4 11:39:49 TSH, serum, reflex free T4 2023 024 [facility] (Registration ), [address] [place] [address] [place], [address], 4 11:40:25 CBC 2023 [facility] (Registration ), [address] [place] [address] [place], [address], 4 15:08:25 ferritin, serum or plasma 2023 [facility] (Registration ), [address] [place] [address] [place], [address], 4 11:41:22 iron + total iron-lynn ng capacity (TIBC), serum 2023 [facility] (Registration ), [address] [place] [address] [place], [address], 4 11:43:17 BMP, serum or plasma 2023 [facility] (Registration ), [address] [place] [address] [place], [address], 4 11:42:49 vitamin D, 25-hydroxy , total, serum 2023 [facility] (Registration ), [address] [place] [address] [place], [address], 4 16:09:19 HbA1c (hemoglobi n A1c), blood 2023 [facility] (Registration ), [address] [place] [address] [place], [address], 4 11:39:49 TSH, serum, reflex free T4 2023 [facility] (Registration ), [address] [place] [address] [place], [address], 4 11:40:25 CBC 2023 [facility] (Registration ), [address] [place] [address] [place], [address], 4 15:08:25 ferritin, serum or plasma 2023 024 [facility] (Registration ), [address] [place] [address] [place], [address], 4 11:41:22 iron + total iron-lynn ng capacity (TIBC), serum 2023 [facility] (Registration ), [address] [place] [address] [place], [address], 4 11:43:17 Referral gastroente rologist referral - [...] at rehab and was negative. 2024 025 [facility], [address] [facility], [place], [address], 5 09:45:21 Procedures None recorded. Surgeries None recorded. Imaging None recorded. Medication Orders furosemide 80 mg tablet 2023 [facility], [address], [address], [place], [address], 14:49:38 spironolac tone 25 mg tablet [email or web address], [address] [place] [address], [address], [place], [address], 4 12:50:28 lisinopril 5 mg tablet 2023 024 [facility], [address] [place] [address], [address], [address], 4 13:19:32 carvedilol 25 mg tablet 2023 024 [facility], [address] [place] [address], [address], [place], [address], 4 12:42:49 hydromorph one 2 mg tablet [address] [facility], [address] [place], [address], 4 15:12:30 levothyrox ine 75 mcg tablet [email or web address] [place] [address] [facility], [address] [place], [address], 4 16:32:19 colestipol 1 gram tablet 2024 025 [facility], [address] [place] [address], [facility] [address], [address], 5 14:26:17 carvedilol 25 mg tablet 2024 025 [facility], [address] [place] [address], [facility] [address], [address], 5 14:26:15 Patient TargetsNo targets recorded. Patient InstructionsNo instructions recorded. 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 4 normal Not Available [address] [place], [address] 11/18/2023 15:53:33 11/18/19 24 11/18/2023 COMPL ETE BLOOD COUNT W/DIF F WBC 8.69 10_3/ uL 4.4-10 .8 normal Not Available [address] [place], [address] 11/18/2023 15:57:13 11/18/19 24 11/18/2023 COMPL ETE BLOOD COUNT W/DIF F RBC 3.16 10_6/ uL 3.93-5 .22 low Not Available [address] [place], [address] 11/18/2023 15:57:13 11/18/19 24 11/18/2023 COMPL ETE BLOOD COUNT W/DIF F HGB 10.7 g/dL 11.2-1 5.7 low Not Available [address] [place], [address] 11/18/2023 15:57:13 11/18/19 24 11/18/2023 COMPL ETE BLOOD COUNT W/DIF F HCT 33.0 % 36.0-4 6.0 low Not Available [address] [place], [address] 11/18/2023 15:57:13 11/18/19 24 11/18/2023 COMPL ETE BLOOD COUNT W/DIF F MCV 104 fL 80-95 high Not Available Ethel [address] [place], [address] 11/18/2023 15:57:13 11/18/19 24 11/18/2023 COMPL ETE BLOOD COUNT W/DIF F MCH 33.9 pg 27.0-3 3.0 high Not Available [address] [place], [address] 11/18/2023 15:57:13 11/18/19 24 11/18/2023 COMPL ETE BLOOD COUNT W/DIF F MCHC 32.4 % 32.0-3 6.0 normal Not Available [address] [place], [address] 11/18/2023 15:57:13 11/18/19 24 11/18/2023 COMPL ETE BLOOD COUNT W/DIF F RDW 14.6 % 11.7-1 4.6 normal Not Available [address] [place], [address] 11/18/2023 15:57:13 11/18/19 24 11/18/2023 COMPL ETE BLOOD COUNT W/DIF F platelet count 134 10_3/ uL 130-40 0 normal Not Available [address] [place], [address] 11/18/2023 15:57:13 11/18/19 24 11/18/2023 COMPL ETE BLOOD COUNT W/DIF F MPV 11.2 fL 8.0-11 .0 high Not Available [address] [place], [address] 11/18/2023 15:57:13 11/18/19 24 11/18/2023 COMPL ETE BLOOD COUNT W/DIF F neutrophils % 74.8 % Not Available [address] [place], [address] 11/18/2023 15:57:13 11/18/19 24 11/18/2023 COMPL ETE BLOOD COUNT W/DIF F lymphocytes % 13.2 % Not Available [address] [place], [address] 11/18/2023 15:57:13 11/18/19 24 11/18/2023 COMPL ETE BLOOD COUNT W/DIF F monocytes % 5.9 % Not Available [address] [place], [address] 11/18/2023 15:57:13 11/18/19 24 11/18/2023 COMPL ETE BLOOD COUNT W/DIF F eosinophils % 5.2 % Not Available [address] [place], [address] 11/18/2023 15:57:13 11/18/19 24 11/18/2023 COMPL ETE BLOOD COUNT W/DIF F basophils % 0.6 % Not Available [address] [place], [address] 11/18/2023 15:57:13 11/18/19 24 11/18/2023 COMPL ETE BLOOD COUNT W/DIF F immature grans % 0.3 % Not Available [address] [place], [address] 11/18/2023 15:57:13 11/18/19 24 11/18/2023 COMPL ETE BLOOD COUNT W/DIF F nucleated RBC 0.0 % 0.0-0. 3 normal Not Available [address] [place], [address] 11/18/2023 15:57:13 11/18/19 24 11/18/2023 COMPL ETE BLOOD COUNT W/DIF F absolute neutrophil count 6.50 10_3/ uL 1.2-6. 7 normal Not Available [address] [place], [address] 11/18/2023 15:57:13 11/18/19 24 11/18/2023 COMPL ETE BLOOD COUNT W/DIF F absolute lymphocyte count 1.15 10_3/ uL 1.2-3. 4 low Not Available [address] [place], [address] 11/18/2023 15:57:13 11/18/19 24 11/18/2023 COMPL ETE BLOOD COUNT W/DIF F absolute monocyte count 0.51 10_3/ uL 0.1-0. 8 normal Not Available [address] [place], [address] 11/18/2023 15:57:13 11/18/19 24 11/18/2023 COMPL ETE BLOOD COUNT W/DIF F absolute eosinophil count 0.45 10_3/ uL 0.0-0. 7 normal Not Available [address] [place], [address] 11/18/2023 15:57:13 11/18/19 24 11/18/2023 COMPL ETE BLOOD COUNT W/DIF F absolute basophil count 0.05 10_3/ uL 0.0-0. 2 normal Not Available [address] [place], [address] 11/18/2023 15:57:13 11/18/19 24 11/18/2023 PROTH ROMBI N TIME prothrombin time 10.5 sec 9.1-11 .1 normal Not Available [address] [place], [address] 11/18/2023 16:14:17 11/18/19 24 11/18/2023 PROTH ROMBI N TIME INR 1.0 0.9-1. 1 normal Recom noel d INR thera peuti c range s for orall y admin ister ed drugs are as follo ws: -Jair dard Inten sity 2.0 to 3.0 -High er Inten sity 3.0 to 4.5 Not Available [address] [place], [address] 11/18/2023 16:14:17 11/18/19 24 11/18/2023 PTT ACTIV ATED PTT activated 19.6 sec 23.6-3 2.8 low Hepar in Thera peuti c Range for PTT = 52-84 secon ds New Hepar in Thera peuti c Range 06/09 Not Available [address] [place], [address] 11/18/2023 16:14:18 11/18/19 24 11/18/2023 COMPR EHENS NADEEM METAB OLIC PANEL calcium 9.0 mg/dL 8.5-10 .1 normal Not Available [address] [place], [address] 11/18/2023 16:19:21 11/18/19 24 11/18/2023 COMPR EHENS NADEEM METAB OLIC PANEL glucose 100 mg/dL 74-106 normal Not Available Ethel green [address] [place], [address] 11/18/2023 16:19:21 11/18/19 24 11/18/2023 COMPR EHENS NADEEM METAB OLIC PANEL BUN 15 mg/dL 7-18 normal Not Available Ethel [address] [place], [address] 11/18/2023 16:19:21 11/18/19 24 11/18/2023 COMPR EHENS NADEEM METAB OLIC PANEL creatinine 1.0 mg/dL 0.55-1 .02 normal Not Available [address] [place], [address] 11/18/2023 16:19:21 11/18/19 24 11/18/2023 COMPR EHENS [...] young er-ag ed adult s. Not Available [address] [place], [address] 11/18/2023 16:19:21 11/18/19 24 11/18/2023 COMPR EHENS NADEEM METAB OLIC PANEL total protein 6.8 g/dL 6.4-8. 2 normal Not Available [address] [place], [address] 11/18/2023 16:19:21 11/18/19 24 11/18/2023 COMPR EHENS NADEEM METAB OLIC PANEL albumin 3.8 g/dL 3.4-5. 0 normal Not Available [address] [place], [address] 11/18/2023 16:19:21 11/18/19 24 11/18/2023 COMPR EHENS NADEEM METAB OLIC PANEL bilirubin, total 0.92 mg/dL 0.2-1. 0 normal Not Available [address] [place], [address] 11/18/2023 16:19:21 11/18/19 24 11/18/2023 COMPR EHENS NADEEM METAB OLIC PANEL alk phos 68 U/L 46-116 normal Not Available [address] [place], [address] 11/18/2023 16:19:21 11/18/19 24 11/18/2023 COMPR EHENS NADEEM METAB OLIC PANEL sodium 144 mmol/ L 136-14 5 normal Not Available [address] [place], [address] 11/18/2023 16:19:21 11/18/19 24 11/18/2023 COMPR EHENS NADEEM METAB OLIC PANEL potassium 3.6 mmol/ L 3.5-5. 1 normal Not Available [address] [place], [address] 11/18/2023 16:19:21 11/18/19 24 11/18/2023 COMPR EHENS NADEEM METAB OLIC PANEL chloride 106 mmol/ L 98-107 normal Not Available [address] [place], [address] 11/18/2023 16:19:21 11/18/19 24 11/18/2023 COMPR EHENS NADEEM METAB OLIC PANEL CO2 29.6 mmol/ L 21.0-3 2.0 normal Not Available [address] [place], [address] 11/18/2023 16:19:21 11/18/19 24 11/18/2023 COMPR EHENS NADEEM METAB OLIC PANEL anion gap 8.4 mmol/ L 3-11 normal Not Available [address] [place], [address] 11/18/2023 16:19:21 11/18/19 24 11/18/2023 COMPR EHENS NADEEM METAB OLIC PANEL AST 15 U/L 15-37 normal Not Available Ethel green [address] [place], [address] 11/18/2023 16:19:21 11/18/19 24 11/18/2023 COMPR EHENS NADEEM METAB OLIC PANEL ALT 16 U/L 14-59 normal Not Available Ethel green [address] [place], [address] 11/18/2023 16:19:21 11/18/19 24 11/18/2023 MAGNE SIUM magnesium 1.9 mg/dL 1.8-2. 4 normal Not Available [address] [place], [address] 11/18/2023 16:19:21 11/18/19 24 11/18/2023 LIPAS E lipase 24 U/L 16-77 normal Not Available Ethel green [address] [place], [address] 11/18/2023 16:19:22 11/18/19 24 11/18/2023 TROPO LUCIA I troponin I < 50 NG/L < or =60 Not Available [address] [place], [address] 11/18/2023 16:19:22 11/18/19 24 11/18/2023 NT-CA OBNP nt-probnp 3052 pg/mL <300 high NT-pr [...] false negat nadeem resul ts. Not Available [address] [place], [address] 11/18/2023 16:19:23 11/18/19 24 11/18/2023 TSH (W/RE F FT4) TSH (w/ref FT4) 0.49 uIU/m L 0.36-3 .74 normal Not Available [address] [place], [address] 11/18/2023 16:22:20 11/18/19 24 11/18/2023 URINA LYSIS color Yellow yellow Not Available Ethel green [address] [place], [address] 11/18/2023 19:26:06 11/18/19 24 11/18/2023 URINA LYSIS clarity Clear clear Not Available Ethel green [address] [place], [address] 11/18/2023 19:26:06 11/18/19 24 11/18/2023 URINA LYSIS specific gravity 1.015 1.005- 1.025 normal Not Available [address] [place], [address] 11/18/2023 19:26:06 11/18/19 24 11/18/2023 URINA LYSIS pH 6.5 5-8 normal Not Available Ethel green [address] [place], [address] 11/18/2023 19:26:06 11/18/19 24 11/18/2023 URINA LYSIS leukocyte esterase Small negati ve abnormal Not Available [address] [place], [address] 11/18/2023 19:26:06 11/18/19 24 11/18/2023 URINA LYSIS nitrite Negati ve negati ve Not Available [address] [place], [address] 11/18/2023 19:26:06 11/18/19 24 11/18/2023 URINA LYSIS protein Negati ve mg/dL neg-tr patrick Not Available [address] [place], [address] 11/18/2023 19:26:06 11/18/19 24 11/18/2023 URINA LYSIS glucose Negati ve mg/dL negati ve Not Available [address] [place], [address] 11/18/2023 19:26:06 11/18/19 24 11/18/2023 URINA LYSIS ketones Negati ve mg/dL negati ve Not Available [address] [place], [address] 11/18/2023 19:26:06 11/18/19 24 11/18/2023 URINA LYSIS urobilinogen 0.2 mg/dL up to 0.2 Not Available [address] [place], [address] 11/18/2023 19:26:06 11/18/19 24 11/18/2023 URINA LYSIS bilirubin Negati ve negati ve Not Available [address] [place], [address] 11/18/2023 19:26:06 11/18/19 24 11/18/2023 URINA LYSIS blood Negati ve negati ve Not Available [address] [place], [address] 11/18/2023 19:26:06 11/18/19 24 11/18/2023 URINA LYSIS color Yellow yellow Not Available Ethel green [address] [place], [address] 11/18/2023 20:30:25 11/18/19 24 11/18/2023 URINA LYSIS clarity Clear clear Not Available Ethel green [address] [place], [address] 11/18/2023 20:30:25 11/18/19 24 11/18/2023 URINA LYSIS specific gravity 1.015 1.005- 1.025 normal Not Available [address] [place], [address] 11/18/2023 20:30:25 11/18/19 24 11/18/2023 URINA LYSIS pH 6.5 5-8 normal Not Available Ethel green [address] [place], [address] 11/18/2023 20:30:25 11/18/19 24 11/18/2023 URINA LYSIS leukocyte esterase Small negati ve abnormal Not Available [address] [place], [address] 11/18/2023 20:30:25 11/18/19 24 11/18/2023 URINA LYSIS nitrite Negati ve negati ve Not Available [address] [place], [address] 11/18/2023 20:30:25 11/18/19 24 11/18/2023 URINA LYSIS protein Negati ve mg/dL neg-tr patrick Not Available [address] [place], [address] 11/18/2023 20:30:25 11/18/19 24 11/18/2023 URINA LYSIS glucose Negati ve mg/dL negati ve Not Available [address] [place], [address] 11/18/2023 20:30:25 11/18/19 24 11/18/2023 URINA LYSIS ketones Negati ve mg/dL negati ve Not Available [address] [place], [address] 11/18/2023 20:30:25 11/18/19 24 11/18/2023 URINA LYSIS urobilinogen 0.2 mg/dL up to 0.2 Not Available [address] [place], [address] 11/18/2023 20:30:25 11/18/19 24 11/18/2023 URINA LYSIS bilirubin Negati ve negati ve Not Available [address] [place], [address] 11/18/2023 20:30:25 11/18/19 24 11/18/2023 URINA LYSIS blood Negati ve negati ve Not Available [address] [place], [address] 11/18/2023 20:30:25 11/18/19 24 11/18/2023 MICRO SCOPI C FINDI NGS WBC 3-5 hpf 0-5 Not Available Ethel green [address] [place], [address] 11/18/2023 20:30:25 11/18/19 24 11/18/2023 MICRO SCOPI C FINDI NGS RBC Negati ve hpf 0-2 Not Available Joel smith [address] [place], [address] 11/18/2023 20:30:25 11/18/19 24 11/18/2023 MICRO SCOPI C FINDI NGS epithelial cells Many hpf negati ve Not Available [address] [place], [address] 11/18/2023 20:30:25 11/18/19 24 11/18/2023 MICRO SCOPI C FINDI NGS bacteria Few hpf negati ve Not Available [address] [place], [address] 11/18/2023 20:30:25 11/18/19 24 11/18/2023 MICRO SCOPI C FINDI NGS crystals Negati ve hpf negati ve Not Available [address] [place], [address] 11/18/2023 20:30:25 11/18/19 24 11/18/2023 MICRO SCOPI C FINDI NGS mucus Trace negati ve Not Available [address] [place], [address] 11/18/2023 20:30:25 11/18/19 24 11/18/2023 MICRO SCOPI C FINDI NGS C S indicated? No Not Available [address] [place], [address] 11/18/2023 20:30:25 11/18/19 24 11/18/2023 TROPO LUCIA I troponin I < 50 NG/L < or =60 Not Available [address] [place], [address] 11/18/2023 22:25:47 11/18/19 24 11/18/2023 VENOU S BLOOD GAS pH (venous) 7.45 7.31-7 .41 high Not Available [address] [place], [address] 11/18/2023 23:12:54 11/18/19 24 11/18/2023 VENOU S BLOOD GAS pCO2 (venous) 44 mmHg 41-51 normal Not Available Rydethai [address] [place], [address] 11/18/2023 23:12:54 11/18/19 24 11/18/2023 VENOU S BLOOD GAS pO2 (venous) 37 mmHg Not Available [address] [place], [address] 11/18/2023 23:12:54 11/18/19 24 11/18/2023 VENOU S BLOOD GAS TCO2 (venous) 28 mmol/ L 24-29 normal Not Available [address] [place], [address] 11/18/2023 23:12:54 11/18/19 24 11/18/2023 VENOU S BLOOD GAS HCO3 (venous) 30 mmol/ L 23-28 high Not Available [address] [place], [address] 11/18/2023 23:12:54 11/18/19 24 11/18/2023 VENOU S BLOOD GAS BE (venous) 6 mmol/ L -2-3 high Not Available [address] [place], [address] 11/18/2023 23:12:54 11/18/19 24 11/18/2023 VENOU S BLOOD GAS O2 sat (venous) 74 % Not Available [facility] [address] [place], [address] 11/18/2023 23:12:54 11/19/19 24 11/19/2023 COMPL ETE BLOOD COUNT W/DIF F WBC 7.07 10_3/ uL 4.4-10 .8 normal Not Available [address] [place], [address] 11/19/2023 07:03:22 11/19/19 24 11/19/2023 COMPL ETE BLOOD COUNT W/DIF F RBC 2.93 10_6/ uL 3.93-5 .22 low Not Available [address] [place], [address] 11/19/2023 07:03:22 11/19/19 24 11/19/2023 COMPL ETE BLOOD COUNT W/DIF F HGB 9.8 g/dL 11.2-1 5.7 low Not Available [address] [place], [address] 11/19/2023 07:03:22 11/19/19 24 11/19/2023 COMPL ETE BLOOD COUNT W/DIF F HCT 30.5 % 36.0-4 6.0 low Not Available [address] [place], [address] 11/19/2023 07:03:22 11/19/19 24 11/19/2023 COMPL ETE BLOOD COUNT W/DIF F MCV 104 fL 80-95 high Not Available [address] [place], [address] 11/19/2023 07:03:22 11/19/19 24 11/19/2023 COMPL ETE BLOOD COUNT W/DIF F MCH 33.4 pg 27.0-3 3.0 high Not Available [address] [place], [address] 11/19/2023 07:03:22 11/19/19 24 11/19/2023 COMPL ETE BLOOD COUNT W/DIF F MCHC 32.1 % 32.0-3 6.0 normal Not Available [address] [place], [address] 11/19/2023 07:03:22 11/19/19 24 11/19/2023 COMPL ETE BLOOD COUNT W/DIF F RDW 14.4 % 11.7-1 4.6 normal Not Available [address] [place], [address] 11/19/2023 07:03:22 11/19/19 24 11/19/2023 COMPL ETE BLOOD COUNT W/DIF F platelet count 112 10_3/ uL 130-40 0 low Not Available [address] [place], [address] 11/19/2023 07:03:22 11/19/19 24 11/19/2023 COMPL ETE BLOOD COUNT W/DIF F MPV 10.8 fL 8.0-11 .0 normal Not Available [address] [place], [address] 11/19/2023 07:03:22 11/19/19 24 11/19/2023 COMPL ETE BLOOD COUNT W/DIF F neutrophils % 74.3 % Not Available [address] [place], [address] 11/19/2023 07:03:22 11/19/19 24 11/19/2023 COMPL ETE BLOOD COUNT W/DIF F lymphocytes % 14.1 % Not Available [address] [place], [address] 11/19/2023 07:03:22 11/19/19 24 11/19/2023 COMPL ETE BLOOD COUNT W/DIF F monocytes % 6.5 % Not Available [address] [place], [address] 11/19/2023 07:03:22 11/19/19 24 11/19/2023 COMPL ETE BLOOD COUNT W/DIF F eosinophils % 4.4 % Not Available [address] [place], [address] 11/19/2023 07:03:22 11/19/19 24 11/19/2023 COMPL ETE BLOOD COUNT W/DIF F basophils % 0.4 % Not Available [address] [place], [address] 11/19/2023 07:03:22 11/19/19 24 11/19/2023 COMPL ETE BLOOD COUNT W/DIF F immature grans % 0.3 % Not Available [address] [place], [address] 11/19/2023 07:03:22 11/19/19 24 11/19/2023 COMPL ETE BLOOD COUNT W/DIF F nucleated RBC 0.0 % 0.0-0. 3 normal Not Available [address] [place], [address] 11/19/2023 07:03:22 11/19/19 24 11/19/2023 COMPL ETE BLOOD COUNT W/DIF F absolute neutrophil count 5.25 10_3/ uL 1.2-6. 7 normal Not Available [address] [place], [address] 11/19/2023 07:03:22 11/19/19 24 11/19/2023 COMPL ETE BLOOD COUNT W/DIF F absolute lymphocyte count 1.00 10_3/ uL 1.2-3. 4 low Not Available [address] [place], [address] 11/19/2023 07:03:22 11/19/19 24 11/19/2023 COMPL ETE BLOOD COUNT W/DIF F absolute monocyte count 0.46 10_3/ uL 0.1-0. 8 normal Not Available [address] [place], [address] 11/19/2023 07:03:22 11/19/19 24 11/19/2023 COMPL ETE BLOOD COUNT W/DIF F absolute eosinophil count 0.31 10_3/ uL 0.0-0. 7 normal Not Available [address] [place], [address] 11/19/2023 07:03:22 11/19/19 24 11/19/2023 COMPL ETE BLOOD COUNT W/DIF F absolute basophil count 0.03 10_3/ uL 0.0-0. 2 normal Not Available [address] [place], [address] 11/19/2023 07:03:22 11/19/19 24 11/19/2023 IRON AND IBCT iron 45 ug/dL 50-170 low Not Available [address] [place], [address] 11/19/2023 07:24:25 11/19/19 24 11/19/2023 IRON AND IBCT total iron binding capacity 284 ug/dL 250-45 0 normal Not Available [address] [place], [address] 11/19/2023 07:24:25 11/19/19 24 11/19/2023 IRON AND IBCT transferrin sat 16 % 15-50 normal Not Available Ariela avitia [address] [place], [address] 11/19/2023 07:24:25 11/19/19 24 11/19/2023 BASIC METAB OLIC PANEL calcium 8.5 mg/dL 8.5-10 .1 normal Not Available [address] [place], [address] 11/19/2023 07:49:36 11/19/19 24 11/19/2023 BASIC METAB OLIC PANEL glucose 93 mg/dL 74-106 normal Not Available Ethel green [address] [place], [address] 11/19/2023 07:49:36 11/19/19 24 11/19/2023 BASIC METAB OLIC PANEL BUN 12 mg/dL 7-18 normal Not Available Ethel green [address] [place], [address] 11/19/2023 07:49:36 11/19/19 24 11/19/2023 BASIC METAB OLIC PANEL creatinine 0.8 mg/dL 0.55-1 .02 normal Not Available [address] [place], [address] 11/19/2023 07:49:36 11/19/19 24 11/19/2023 BASIC METAB [...] young er-ag ed adult s. Not Available [address] [place], [address] 11/19/2023 07:49:36 11/19/19 24 11/19/2023 BASIC METAB OLIC PANEL sodium 147 mmol/ L 136-14 5 high Not Available [address] [place], [address] 11/19/2023 07:49:36 11/19/19 24 11/19/2023 BASIC METAB OLIC PANEL potassium 3.2 mmol/ L 3.5-5. 1 low Not Available [address] [place], [address] 11/19/2023 07:49:36 11/19/19 24 11/19/2023 BASIC METAB OLIC PANEL chloride 107 mmol/ L 98-107 normal Not Available [address] [place], [address] 11/19/2023 07:49:36 11/19/19 24 11/19/2023 BASIC METAB OLIC PANEL CO2 31.2 mmol/ L 21.0-3 2.0 normal Not Available [address] [place], [address] 11/19/2023 07:49:36 11/19/19 24 11/19/2023 BASIC METAB OLIC PANEL anion gap 8.8 mmol/ L 3-11 normal Not Available [address] [place], [address] 11/19/2023 07:49:36 11/19/19 24 11/19/2023 DANIEL TIN ferritin 169 NG/mL 8-252 normal Not Available [address] [place], [address] 11/19/2023 07:49:36 11/19/19 24 11/19/2023 MAGNE SIUM magnesium 1.8 mg/dL 1.8-2. 4 normal Not Available [address] [place], [address] 11/19/2023 07:49:37 11/19/19 24 11/19/2023 VITAM IN B12 vitamin B12 1124 pg/mL 193-98 6 high Not Available [address] [place], [address] 11/19/2023 07:49:37 11/19/19 24 11/19/2023 FOLAT E folate 19.3 NG/mL 8.6-20 .0 normal Not Available [address] [place], [address] 11/19/2023 07:49:37 11/19/19 24 11/20/2023 TRANS DANIEL N transferrin 188 mg/dL 201-35 2 abnormal Test perfo rmed or refer red by [facility] [address], [place] [address] Not Available [address] [place], [address] 11/23/2023 12:15:30 11/20/19 24 11/20/2023 BASIC METAB OLIC PANEL calcium 8.9 mg/dL 8.5-10 .1 normal Not Available [address] [place], [address] 11/20/2023 07:12:43 11/20/19 24 11/20/2023 BASIC METAB OLIC PANEL glucose 115 mg/dL 74-106 high Not Available Ethel green [address] [facility] [place], [address] 11/20/2023 07:12:43 11/20/19 24 11/20/2023 BASIC METAB OLIC PANEL BUN 19 mg/dL 7-18 high Not Available Ethel green [address] [place], [address] 11/20/2023 07:12:43 11/20/19 24 11/20/2023 BASIC METAB OLIC PANEL creatinine 1.0 mg/dL 0.55-1 .02 normal Not Available [address] [facility] [place], [address] 11/20/2023 07:12:43 11/20/19 24 11/20/2023 BASIC METAB [...] young er-ag ed adult s. Not Available [address] [place], [address] 11/20/2023 07:12:43 11/20/19 24 11/20/2023 BASIC METAB OLIC PANEL sodium 140 mmol/ L 136-14 5 normal Not Available [address] [place], [address] 11/20/2023 07:12:43 11/20/19 24 11/20/2023 BASIC METAB OLIC PANEL potassium 3.6 mmol/ L 3.5-5. 1 normal Not Available [address] [place], [address] 11/20/2023 07:12:43 11/20/19 24 11/20/2023 BASIC METAB OLIC PANEL chloride 100 mmol/ L 98-107 normal Not Available [address] [place], [address] 11/20/2023 07:12:43 11/20/19 24 11/20/2023 BASIC METAB OLIC PANEL CO2 33.2 mmol/ L 21.0-3 2.0 high Not Available [address] [place], [address] 11/20/2023 07:12:43 11/20/19 24 11/20/2023 BASIC METAB OLIC PANEL anion gap 6.8 mmol/ L 3-11 normal Not Available [address] [place], [address] 11/20/2023 07:12:43 12/02/19 24 12/02/2023 BASIC METAB OLIC PANEL calcium 9.8 mg/dL 8.5-10 .1 normal Not Available [address] [place], [address] 12/02/2023 16:25:21 12/02/19 24 12/02/2023 BASIC METAB OLIC PANEL glucose 104 mg/dL 74-106 normal Not Available Ethel green [address] [place], [address] 12/02/2023 16:25:21 12/02/19 24 12/02/2023 BASIC METAB OLIC PANEL BUN 20 mg/dL 7-18 high Not Available Ethel rgeen [address] [place], [address] 12/02/2023 16:25:21 12/02/19 24 12/02/2023 BASIC METAB OLIC PANEL creatinine 1.1 mg/dL 0.55-1 .02 high Not Available [address] [place], [address] 12/02/2023 16:25:21 12/02/19 24 12/02/2023 BASIC METAB [...] young er-ag ed adult s. Not Available [address] [place], [address] 12/02/2023 16:25:21 12/02/19 24 12/02/2023 BASIC METAB OLIC PANEL sodium 143 mmol/ L 136-14 5 normal Not Available [address] [place], [address] 12/02/2023 16:25:21 12/02/19 24 12/02/2023 BASIC METAB OLIC PANEL potassium 4.6 mmol/ L 3.5-5. 1 normal Not Available [address] [place], [address] 12/02/2023 16:25:21 12/02/19 24 12/02/2023 BASIC METAB OLIC PANEL chloride 106 mmol/ L 98-107 normal Not Available [address] [place], [address] 12/02/2023 16:25:21 12/02/19 24 12/02/2023 BASIC METAB OLIC PANEL CO2 29.1 mmol/ L 21.0-3 2.0 normal Not Available [address] [place], [address] 12/02/2023 16:25:21 12/02/19 24 12/02/2023 BASIC METAB OLIC PANEL anion gap 7.9 mmol/ L 3-11 normal Not Available [address] [place], [address] 12/02/2023 16:25:21 12/02/19 24 12/02/2023 MAGNE SIUM magnesium 1.8 mg/dL 1.8-2. 4 normal Not Available [address] [place], [address] 12/02/2023 16:25:22 12/02/19 24 12/02/2023 NT-CA OBNP nt-probnp 2190 pg/mL <300 high NT-pr [...] false negat nadeem resul ts. Not Available [facility] (Registration ) [address] [place] [address] [place], [address], 12/02/2023 16:25:22 12/02/19 24 12/02/2023 COMPL ETE BLOOD COUNT NO DIFF WBC 7.43 10_3/ uL 4.4-10 .8 normal Not Available [address] [place], [address] 12/02/2023 16:35:23 12/02/19 24 12/02/2023 COMPL ETE BLOOD COUNT NO DIFF RBC 3.18 10_6/ uL 3.93-5 .22 low Not Available [address] [place], [address] 12/02/2023 16:35:23 12/02/19 24 12/02/2023 COMPL ETE BLOOD COUNT NO DIFF HGB 10.6 g/dL 11.2-1 5.7 low Not Available [address] [place], [address] 12/02/2023 16:35:23 12/02/19 24 12/02/2023 COMPL ETE BLOOD COUNT NO DIFF HCT 33.5 % 36.0-4 6.0 low Not Available [address] [place], [address] 12/02/2023 16:35:23 12/02/19 24 12/02/2023 COMPL ETE BLOOD COUNT NO DIFF MCV 105 fL 80-95 high 1+ macro cytos is Not Available [address] [place], [address] 12/02/2023 16:35:23 12/02/19 24 12/02/2023 COMPL ETE BLOOD COUNT NO DIFF MCH 33.3 pg 27.0-3 3.0 high Not Available [address] [place], [address] 12/02/2023 16:35:23 12/02/19 24 12/02/2023 COMPL ETE BLOOD COUNT NO DIFF MCHC 31.6 % 32.0-3 6.0 low Not Available [address] [place], [address] 12/02/2023 16:35:23 12/02/19 24 12/02/2023 COMPL ETE BLOOD COUNT NO DIFF RDW 13.3 % 11.7-1 4.6 normal Not Available [address] [place], [address] 12/02/2023 16:35:23 12/02/19 24 12/02/2023 COMPL ETE BLOOD COUNT NO DIFF platelet count 140 10_3/ uL 130-40 0 normal Not Available [address] [place], [address] 12/02/2023 16:35:23 12/02/19 24 12/02/2023 COMPL ETE BLOOD COUNT NO DIFF MPV 11.8 fL 8.0-11 .0 high Not Available [address] [place], [address] 12/02/2023 16:35:23 04/18/20 24 04/18/2024 COMPL ETE BLOOD COUNT NO DIFF WBC 6.58 10_3/ uL 4.4-10 .8 normal Not Available [address] [place], [address] 04/18/2024 15:08:25 04/18/20 24 04/18/2024 COMPL ETE BLOOD COUNT NO DIFF RBC 3.70 10_6/ uL 3.93-5 .22 low Not Available [address] [place], [address] 04/18/2024 15:08:25 04/18/20 24 04/18/2024 COMPL ETE BLOOD COUNT NO DIFF HGB 12.0 g/dL 11.2-1 5.7 normal Not Available [address] [place], [address] 04/18/2024 15:08:25 04/18/20 24 04/18/2024 COMPL ETE BLOOD COUNT NO DIFF HCT 38.0 % 36.0-4 6.0 normal Not Available [address] [place], [address] 04/18/2024 15:08:25 04/18/20 24 04/18/2024 COMPL ETE BLOOD COUNT NO DIFF MCV 103 fL 80-95 high Not Available [address] [place], [address] 04/18/2024 15:08:25 04/18/20 24 04/18/2024 COMPL ETE BLOOD COUNT NO DIFF MCH 32.4 pg 27.0-3 3.0 normal Not Available [address] [place], [address] 04/18/2024 15:08:25 04/18/20 24 04/18/2024 COMPL ETE BLOOD COUNT NO DIFF MCHC 31.6 % 32.0-3 6.0 low Not Available [address] [place], [address] 04/18/2024 15:08:25 04/18/20 24 04/18/2024 COMPL ETE BLOOD COUNT NO DIFF RDW 15.6 % 11.7-1 4.6 high Not Available [address] [place], [address] 04/18/2024 15:08:25 04/18/20 24 04/18/2024 COMPL ETE BLOOD COUNT NO DIFF platelet count 124 10_3/ uL 130-40 0 low Not Available [address] [place], [address] 04/18/2024 15:08:25 04/18/20 24 04/18/2024 COMPL ETE BLOOD COUNT NO DIFF MPV 11.2 fL 8.0-11 .0 high Not Available [address] [place], [address] 04/18/2024 15:08:25 04/18/20 24 04/18/2024 IRON AND IBCT iron 65 ug/dL 50-170 normal Not Available [facility] (Registration ) [address] [place] [address] [place], [address], 04/18/2024 16:07:17 04/18/20 24 04/18/2024 IRON AND IBCT total iron binding capacity 318 ug/dL 250-45 0 normal Not Available [facility] (Registration ) [address] [place] [address] [place], [address], 04/18/2024 16:07:17 04/18/20 24 04/18/2024 IRON AND IBCT transferrin sat 20 % 15-50 normal Not Available [facility] (Registration ) [address] [place] [address] [place], [address], 04/18/2024 16:07:17 04/18/20 24 04/18/2024 BASIC METAB OLIC PANEL calcium 9.4 mg/dL 8.5-10 .1 normal Not Available [facility] (Registration ) [address] [place] [address] [place], [address], 04/18/2024 16:09:17 04/18/20 24 04/18/2024 BASIC METAB OLIC PANEL glucose 103 mg/dL 74-106 normal Not Available [facility] (Registration ) [address] [place] [address] [place], [address], 04/18/2024 16:09:17 04/18/20 24 04/18/2024 BASIC METAB OLIC PANEL BUN 21 mg/dL 7-18 high Not Available [facility] (Registration ) [address] [place] [address] [place], [address], 04/18/2024 16:09:17 04/18/20 24 04/18/2024 BASIC METAB OLIC PANEL creatinine 1.0 mg/dL 0.55-1 .02 normal Not Available [facility] (Registration ) [address] [place] [address] [facility] [place], [address], 04/18/2024 16:09:17 04/18/20 24 04/18/2024 BASIC METAB [...] young er-ag ed adult s. Not Available [facility] (Registration ) [address] [place] [address] [place], [address], 04/18/2024 16:09:17 04/18/20 24 04/18/2024 BASIC METAB OLIC PANEL sodium 145 mmol/ L 136-14 5 normal Not Available [facility] (Registration ) [address] [place] [address] [place], [address], 04/18/2024 16:09:17 04/18/20 24 04/18/2024 BASIC METAB OLIC PANEL potassium 4.2 mmol/ L 3.5-5. 1 normal Not Available [facility] (Registration ) [address] [place] [address] [place], [address], 04/18/2024 16:09:17 04/18/20 24 04/18/2024 BASIC METAB OLIC PANEL chloride 107 mmol/ L 98-107 normal Not Available [facility] (Registration ) [address] [place] [address] [place], [address], 04/18/2024 16:09:17 04/18/20 24 04/18/2024 BASIC METAB OLIC PANEL CO2 31.4 mmol/ L 21.0-3 2.0 normal Not Available [facility] (Registration ) [address] [place] [address] [place], [address], 04/18/2024 16:09:17 04/18/20 24 04/18/2024 BASIC METAB OLIC PANEL anion gap 6.6 mmol/ L 3-11 normal Not Available [facility] (Registration ) [address] [place] [address] [place], [address], 04/18/2024 16:09:17 04/18/20 24 04/18/2024 DANIEL TIN ferritin 211 NG/mL 8-252 normal Not Available [facility] (Registration ) [address] [place] [address] [place], [address], 04/18/2024 16:09:18 04/18/20 24 04/18/2024 TSH (W/RE F FT4) TSH (w/ref FT4) 2.17 uIU/m L 0.36-3 .74 normal NOTE: Supra -phys iolog ic doses of Bioti n(B7) may cause false negat nadeem resul ts. Not Available [facility] (Registration ) [address] [place] [address] Dr, [place], [address], 04/18/2024 16:09:18 04/18/20 24 04/18/2024 VITAM IN D 25 TOTAL vitamin D 25 total 63.9 NG/mL 30-100 normal Refer ence Guide lines : Defic ient: <10 ng/ml Insuf ficie nt: 10-30 ng/ml Suffi cient : 30-10 0 ng/ml Toxic : >100 ng/ml Not Available [address] [facility] [place], [address] 04/18/2024 16:09:19 04/18/20 24 04/18/2024 HEMOG LOBIN [...] pleme nt 1):S1 3-s28 . Not Available [facility] (Registration ) [address] [place] [address] [place], [address], 04/18/2024 16:21:24 11/04/19 24 10/14/2023 rhyth m strip , EKG* No observ ation record ed. [email or web address] Not Available 2023 10:18:08 11/18/19 24 11/18/2023 US, duple x, lower extre mity Paticherie t Name: Rema Olson Unit #: [id number] Loc: ER Orderi ng Provid er: Braydon Doyle Accoun t #: [id number] Status : REG ER Primar y Care [...] tation , and color Dopple r. The duct layer ior tibial veins are patent . IMPRES [...] at the addres s above. Thank- you. [facility] [address], [place], [address] 11/18/2023 16:48:49 11/18/19 24 11/18/2023 CT imagi martin hackett Name: Rema Olson Unit #: [id number] Loc: ER Sonal salazar Provid er: Braydon Doyle Accoun t #: [id number] Status : REG ER Primar y Care [...] interl obular septal thicke jama greate r duct layer iorly which could indica te mild CHF. No consol idatio n or domina nt measur able mass. Pleura : Small left pleura l effusi on. Heart: The heart is modera tely dilate d. Manager Helpdesk ior perica rdial effusi on. Minima l [...] . Small perica rdial effusi on seen duct layer iorly. Small left pleura l effusi on. [...] error, please notify us immedi zayly at [phone] 1-0600 and return the origin al report to us at the addres s above. Thank- you. [facility] [address] [place], [address] 11/19/2023 12:12:11 11/19/1911/19/2023 ultra sound imagi ng repor t Patien t Name: Rema Olson Unit #: [id number] Loc: MS Pruitt ng Provid er: Huseyin Bolaños M.D. Accsantos t #: [id number] Status : ADM IN Primar y [...] at the addres s above. Thank- you. [facility] [address], [place], [address] 11/19/2023 12:12:11 01/18/20 24 11/15/2018 imagi ng/di [...] 2023- ERICH HER MD [address], [place], [address] , [facility] 4 17:34:10 Hypothyr oidism 65277668 Active 1959 EVIE shaw [facility] 4 10:29:59 Essentia l hyperten jason 60245154 Active 1959 EVIE shaw [facility] 4 10:29:36 Hyperlip idemia 87435911 Active 1959 on statin MD [address], [place], [address] , [facility] 4 20:35:18 Spinal stenosis of lumbar region 57291022 Active 2012 s/p lumbar foramino parish L4 MD [address], [place] [address] , [facility] 4 20:36:41 Sleep apnea 21241819 Active 2012 on CPAP MD [address], [place] [address] , [facility] 4 20:39:31 Gastroes ophageal reflux disease without esophagi tis 701228033 Completed 195908/12/2023 Removal Reason: resolved with surgical repair of HH MD [address], [facility] [address] , [facility] 4 10:41:24 Family history of malignan t neoplasm of digestiv e organ 839221218 Active [address], [place], [address] , [facility] 4 20:37:03 Paresthe samir 02302075 Completed 201412/01/2014 11/28/19 15 - Comments only - Erich Her MD - check B12 and folate Problem Code: R20.2; Problem Code Type: ICD-10; Not Available [facility] 3 05:53:48 Adult health examinat ion Active [address], [place], [address] , [facility] 4 20:33:34 Pre-surg ruben evaluati [...] Not Available [facility] 3 05:53:48 Localize d edema 628563820 Completed 201501/29/2016 12/13/19 16 - Comments only - Erich Her MD - and some on left as well, will check BMP. Problem Code: R60.0; Problem Code Type: ICD-10; ERICH HER MD [address], [place], [address] , 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 Fitzpatr ick for removal. Problem Code: L72.3; Problem Code Type: ICD-10; Not Available [facility] 3 05:53:49 Chronic ulcer of foot 565898464 Completed 201601/16/2017 12/18/19 17 - Comments only - Erich Her MD - Due to injury. This does appear to have some granulat ion tissue and to be healing. She is given a prescrip tion for Keflex to take only if erythema seems to be extendin g. Problem Code: L97.509; Problem Code Type: ICD-10; Not Available [facility] 3 05:53:49 Diarrhea 95449266 Completed 201602/10/2017 02/05/20 17 - Comments only - Erich Her MD - Persiste nt over several months, we will collect stool for C. difficil e, Giardia, culture, and lactofer rin Problem Code: R19.7; Problem Code Type: ICD-10; ERICH HER MD [address], [place], [address] , [facility]. 4 21:03:03 Polyp of cervix 71055669 Active 2016 EVIE shaw, [facility]. 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 6 mm PT1NO E2P2 poistive , HER2 negative MD [address], [place], [address] , [facility], [facility]. 4 20:38:49 Pain in left lower limb 837285241 Active 2016 EVIE shaw [facility], [facility]. 4 10:32:00 Pain in thoracic spine 393939093 Active 2016 EVIE shaw [facility], [facility]. 4 10:32:06 Spasm 11981627 Active 2017 EVIE hsaw [facility] 4 10:33:28 Abdomina l distensi on, gaseous 498307787 Completed 201703/08/2018 Problem Code: R14.0; Problem Code Type: ICD-10; Not Available [facility] 3 05:53:50 Cellulit is of toe 07369128 Completed 201808/12/2018 Problem Code: L03.039; Problem Code Type: ICD-10; Not Available [facility] 3 05:53:51 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 2018 Danica Felix colin, [facility] 4 14:36:02 Tachycar lea 0962157 Completed 201811/25/2018 Problem Code: R00.0; Problem Code Type: ICD-10; Not Available [facility] 3 05:53:51 Pre-surg ruben evaluati on Completed 201811/25/2018 Problem Code: Z01.818; Problem Code Type: ICD-10; Not Available [facility] 3 05:53:51 Iron deficien cy anemia 61188110 Active 2019 elevated MCV: normal B12 2021, normal folate 2018 IV iron 2023 EGD 01/2022 paraesop hageal hernia (since repaired ) colo 03/2017 normal ERICH HER MD [facility] [address], [place], [address] , [facility] 4 11:44:45 Lumbago with sciatica 265046032 Completed 201903/16/2020 02/24/20 20 - Comments only - Vy Pinon [employer] - Likely aggravat ed by increase [...] M54.40; Problem Code Type: ICD-10; Not Available [facility] 3 05:53:52 Right side sciatica 20738819212 9101 [facility] 2019 [facility] 4 10:33:09 Left side sciatica 43459032147 9104 Active [address], [facility] [address] , [facility] 4 17:20:20 Diaphrag matic hernia 07161060 Completed 202108/11/2023 Removal Reason: s/p repair MD [address], [place] [id number] , [facility] 4 20:50:39 History of SARS-CoV -2 [id number] 7078410 Completed 202104/04/2022 03/21/20 22 - Comments only - Erich Her MD - testing is negative today in the office. Still some fatigue but otherwis e recoveri ng. Did get MAB. Already had covid bivalent booster prior to illness Problem Code: Z86.16; Problem Code Type: ICD-10; Not Available [facility] 3 05:53:53 Diarrhea 74648505 Completed 202104/18/2022 Problem Code: R19.7; Problem Code Type: ICD-10; MD [address], [facility] [address] , [facility] 4 21:03:02 Screenin g mammogra phy Completed 202208/11/[address], [place], [address] , [facility] 4 20:36:56 Carpal tunnel syndrome of left wrist 67445954475 9102 Completed 202201/23/2023 Problem Code: G56.02; Problem Code Type: ICD-10; Not Available [facility] 4 05:37:46 Diarrhea 48656707 Active 2022 started colestip ol 01/[address], [place], [address] , [facility] 4 21:03:02 Carpal tunnel syndrome of right wrist 51091005872 9108 Completed 201803/19/2020 Problem Code: G56.01; Problem Code Type: ICD-10; Not Available [facility] 3 05:53:55 Pain of left knee joint 89818230253 4107 Completed 202107/30/2022 Problem Code: M25.562; Problem Code Type: ICD-10; Not Available [facility] 3 05:53:55 Hypersom korina 34280651 Completed 201311/27/2014 Problem Code: 780.54; Problem Code Type: ICD-9; Not Available [facility] 3 05:53:56 Screenin g for disorder Completed 201909/11/2021 Problem Code: Z13.9; Problem Code Type: ICD-10; Not Available [facility] 3 05:53:56 Anemia 323018616 Completed 201903/19/2020 Problem Code: D64.9; Problem Code Type: ICD-10; Not Available [facility] 3 05:53:56 Long-ter m current use of anticoag ulant 368223011 Completed 201709/01/2018 Problem Code: Z79.01; Problem Code Type: ICD-10; Not Available [facility] 3 05:53:57 Chronic rhinitis 55453173 Completed 202108/12/2021 Problem Code: J31.0; Problem Code Type: ICD-10; Not Available [facility] 05:53:57 Impaired fasting glycemia 093772062 Completed 201401/28/2023 Not Available [facility] 3 05:53:57 Fatigue 96710105 Completed 201903/19/2020 Problem Code: R53.83; Problem Code Type: ICD-10; Not Available [facility] 05:53:58 Upper respirat ory tract infectio n caused by Influenz a A 87320919505 9104 Completed 201707/02/2017 Problem Code: J09.x2; Problem Code Type: ICD-10; Not Available [facility] 05:53:59 Diarrhea 76716899 Completed 201709/01/2018 ERICH HER MD [facility] [address], [place], [address] [facility] 21:03:02 Acute upper respirat ory infectio n 21291580 Completed 202108/26/2021 Problem Code: J06.9; Problem Code Type: ICD-10; Not Available [facility] 05:53:59 Pain in right foot 28917278962 9107 Completed 202207/30/2022 Problem Code: M79.671; Problem Code Type: ICD-10; Not Available [facility] 3 05:54:00 Breast composit ion 655666994 Completed 201601/28/2023 Not Available [facility] 3 05:54:00 Changes in skin texture 905929865 Completed 202207/30/2022 Problem Code: R23.4; Problem Code Type: ICD-10; Not Available [facility] 3 05:54:01 Spasm 71340183 Completed 201603/23/2017 Problem Code: R25.2; Problem Code Type: ICD-10; EVIE RUFUS [facility] 4 10:33:28 Hyperten sive disorder 74713845 Completed 11/28/19 15 - Comments only - Erich Her MD - [facility] ed, no change in medicati ons Not Available [facility] 3 05:54:03 Arthralg ia of the ankle and/or foot 300284077 Completed 201501/30/2016 Problem Code: M25.571; Problem Code Type: ICD-10; Not Available [facility] 3 05:54:03 Dyspnea 428555057 Completed 201903/19/2020 Problem Code: R06.02; Problem Code Type: ICD-10; Danica Felix [facility] 4 14:39:47 Trigger finger of right hand 12964413245 011618 Completed 201803/19/2020 Problem Code: M65.341; Problem Code Type: ICD-10; Not Available [facility] 3 05:54:06 Cough 50872557 Completed 202108/12/2021 Problem Code: R05.1; Problem Code Type: ICD-10; Not Available [facility] 3 05:54:06 At risk - finding 096095456 Completed 201811/11/2018 Problem Code: Z91.89; Problem Code Type: ICD-10; Not Available [facility] 3 05:54:06 Cough 03113164 Completed 201706/15/2017 Problem Code: R05; Problem Code Type: ICD-10; Not Available [facility] 3 05:54:07 Preopera tive cardiova scular examinat ion Completed 202112/18/2021 Problem Code: Z01.810; Problem Code Type: ICD-10; Not Available [facility] 3 05:54:08 Arterial bruit 52264152 Completed 202109/11/2021 Not Available [facility] 3 05:54:08 Gastroes ophageal reflux disease 937269266 Completed Not Available [facility] 3 05:54:09 Imaging of musculos keletal system abnormal 679562155 Completed 201603/23/2017 Problem Code: R93.7; Problem Code Type: ICD-10; Not Available [facility] 3 05:54:10 Blood glucose outside referenc e range 355389526 Completed 201503/20/2016 Problem Code: R73.09; Problem Code Type: ICD-10; Not Available [facility] 3 05:54:10 Abdomina l aortic aneurysm 837809971 Completed 195912/04/2014 Not Available [facility] 3 05:54:11 Lung field abnormal 754450114 Completed 202109/11/2021 Problem Code: R91.8; Problem Code Type: ICD-10; Not Available [facility] 3 05:54:11 Ingrowin g nail 934592994 Completed 201503/23/2017 Problem Code: L60.0; Problem Code Type: ICD-10; Not Available [facility] 3 05:54:11 Hypokale karyn 29731431 Completed 201504/17/2016 Problem Code: E87.6; Problem Code Type: ICD-10; Not Available [facility] 3 05:54:12 Spasm 87132737 Completed 202201/23/2023 Problem Code: M62.838; Problem Code Type: ICD-10; EVIE shaw, [facility] 4 10:33:28 Aneurysm of ascendin g aorta 440494819 Active 2023 ERICH HER MD [address], [place], [address] , [facility]. 4 19:24:51 Bicuspid aortic valve 78033577 Active 2023 severe by ECHO 07/2023 ERICH HER MD [address], [place], [address] , [facility]. 4 19:33:10 Osteopen ia 816048212 Active 2023 EVIE shaw, [facility] 4 10:28:13 Venous stasis 47743983 Active 2023 EVIE shaw, [facility] 4 10:29:14 Chronic kidney disease 895408866 Active 2017 Stage 3bA1v eGFR 42-[address], [place] [address] , [facility] 4 20:49:29 Dyspnea on exertion 48175709 Active 2018 Danica Felix colin, [facility] 4 14:39:44 Hiatal hernia 15895207 Completed 202108/11/2023 lap repair MD [address], [place] [address] , [facility] 4 20:51:15 Edema of lower extremit y 445143581 Active [address], [place] [address] , [facility] 4 20:55:49 Atrial fibrilla tion 01981441 Active 2016 s/p pulmonoa ry vein isolatio n 05/2018, chronic anticoag ulation with Xarelto MD [address], [facility] [address] , [facility] 4 09:14:08 Obesity 546330733 Active [address], [place] [address] , [facility] 4 09:26:22 Cardiac pacemake r in situ 513060375 Active 2023 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 MD [address], [place], [address] , [facility] 09:13:49 Swelling of bilatera l lower limbs 698713905 Active [address], [place], [address] , [facility] 14:35:13 Problem Notes None recorded. Procedures Surgical History Date Name Laterality Status Provider Name and Address Organization Details Recorded Time 10/26/19 cardiac pacemaker procedure completed MD [address], [place], [address], [facility] 03/16/2024 16:33:27 10/20/19 transcatheter aortic valve implantation completed MD [address], [place], [address], [facility] 03/16/2024 16:32:53 Imaging Results Imaging Date Name Status LastModified by Organiz ation Details LastModified Time 10/14/2023 rhythm strip, EKG* completed [email or web address] Information not available 11/06/2023 10:18:08 11/18/2023 US, duplex, lower extremity completed [address] [place], [address] 11/18/2023 16:48:49 11/18/2023 CT imaging report completed [address] [place], [address] 11/19/2023 12:12:11 11/19/2023 ultrasound imaging report completed [address] [place], [address] 11/19/2023 12:12:11 11/15/2018 imaging/diagnos tic result completed [...] Name and Address Organization Details Recorded Time 39813 amlodipin e medicatio n swelling severe high 11/18/2023 31358 RxNorm Shaneka Herrera [facility], [facility] 13:47:28 Medications Name [...] 1 tab by mouth daily 06/02 completed [employer] [facility] Not Available Not Available Not Available [...] Updated DateTime 4 164.34 cm 31.2 kg/m2 58299.1 8 g 99.8 [degF] 97 % 97 % 91 /min 17 /min 131 mm[Hg] 77 mm[Hg] Shaneka Herrera MA [facility] 4 13:46:32 Date Recorded Body height Body mass index (BMI) Body weight Body temperature Oxygen saturation Oxygen saturation in Arterial blood by Pulse oximetry Respiratory rate Heart rate Systolic blood pressure Diastolic blood pressure Provider Name and Address Organization Details Last Updated DateTime 4 164.34 cm 30.6 kg/m2 61601.8 1 g 97.5 [degF] 97 % 97 % 18 /min 88 /min 102 mm[Hg] 60 mm[Hg] KRYSTAL SKELTON LPN [facility] 4 11:10:31 Date Recorded Body height Body mass index (BMI) Body weight Body temperature Oxygen saturation Oxygen saturation in Arterial blood by Pulse oximetry Heart rate Respiratory rate Systolic blood pressure Diastolic blood pressure Provider Name and Address Organization Details Last Updated DateTime 4 164.34 cm 29.1 kg/m2 09187.4 8 g 97.7 [degF] 96 % 96 % 104 /min 18 /min 120 mm[Hg] 74 mm[Hg] KRYSTAL SKELTON LPN [facility] 4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
--- OUTSIDE RECORDS SUMMARY | 2024-05-30 11:15 | XMS_ITS ---
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) Active confirmed Vital Signs Weight 170 lbs 02/16/2024 Height 5ft 4in in 02/16/2024 BMI 29.18 02/16/2024 Encounters Encounter Location Date Provider Diagnosis [facility] [address] [facility] [facility] [address] [place], [place] [id number] 02/16/2024 VIKTOR SANCHEZ Ingrowing nail L60.0 ; [...] Notes * KODY KIMBROUGHDOB:1945 (78 yo F)Acc No.[id number]:02/16/2024 New Patient Notes Patient:?KODY KIMBROUGH Provider:?Gloria Sanchez D.P.M., Tangela Gonzalez :1945???Age:78 Y???Sex:Female D ate:02/16/2024 Address:[address] [place], [place] [id number] Pcp:RANDA MORATAYA Subjective: * Chief Complaints: * [...] Electronic signature of NUVIA SANCHEZ DPM on 05/30/2024 at 11:02 AM EST Sign off status: Pending * Provider:?Gloria Sanchez D.P.M., Osvaldo.VasquezAMiladS. Date:?02/16/2024 Generated for Rayshawn salazar/Kailyn/eTransmitting on:?05/30/2024 11:02 AM EST History and Physical Notes * [...]
--- OUTSIDE RECORDS SUMMARY | 2024-05-30 11:15 | XMS_ITS | Continuity of Care Document ---
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ORD[facility] Sleep Medicine [facility] [employer] Assessment Encounter Date Assessment Date Assessment LastModified by Organization Details LastModified Time 05/23/2024 05/23/2024 The total time devoted to today's encounter, including both the rvsb-cu-slke time with the patient and/or family/caregi josefina and xoz-vbfh-es-f patrick time I personally spent is 42 [...] at rehab and was negative. 2024 025 [facility], [address], [place], [address], 09:45:21 Procedures None recorded. Surgeries None recorded. Imaging None recorded. Medication Orders colestipol 1 gram tablet 2024 [facility] [address] [place] [address], [facility] [address], [place], [address], 14:26:17 carvedilol 25 mg tablet 2024 [facility] [address] [place] [address], [facility], [place], [address], 14:26:15 Patient TargetsNo targets recorded. Patient InstructionsNo instructions recorded. 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 Referral for Chronic diarrhea You saw [...] humeral fracture 2023- MD [address], [place], [address] , [facility] 4 17:34:10 Hypothyr oidism 08641732 Active 1959 EVIE shaw, [facility] 4 10:29:59 Essentia l hyperten jason 71178112 Active 1959 EVIE shaw, [facility] 4 10:29:36 Hyperlip idemia 20613780 Active 1959 on statin MD [address], [place], [address] , [facility] 4 20:35:18 Spinal stenosis of lumbar region 77395753 Active 2012 s/p lumbar foramino parish L4 MD [address], [place], [address] , [facility] 4 20:36:41 Sleep apnea 29506773 Active 2012 on CPAP MD [address], [place], [address] , [facility] 4 20:39:31 Gastroes ophageal reflux disease without esophagi tis 070671705 Completed 195908/12/2023 Removal Reason: resolved with surgical repair of HH MD [address], [place], [address] , [facility] 4 10:41:24 Family history of malignan t neoplasm of digestiv e organ 179288464 Active [address], [place], [address] , [facility] 4 20:37:03 Paresthe samir 17052824 Completed 201412/01/2014 11/28/19 15 - Comments only - Ana Her MD - check B12 and folate Problem Code: R20.2; Problem Code Type: ICD-10; Not Available [facility] 3 05:53:48 Adult health examinat ion Active [address], [place], [address] , [facility] 4 20:33:34 Pre-surg [...] Z01.818; Problem Code Type: ICD-10; Not Available [facility] 3 05:53:48 Localize d edema 836420960 Completed 201501/29/2016 12/13/19 16 - Comments only - Ana Her MD - and some on left as well, will check BMP. 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 Nusrat holt for removal. Problem Code: L72.3; Problem Code Type: ICD-10; Not Available [facility] 3 05:53:49 Chronic ulcer of foot 888321661 Completed 201601/16/2017 12/18/19 17 - Comments only - Ana Her MD - Due to injury. This does appear to have some granulat ion tissue and to be healing. She is given a prescrip tion for Keflex to take only if erythema seems to be extendin g. Problem Code: L97.509; Problem Code Type: ICD-10; Not Available [facility] 3 05:53:49 Diarrhea 23599352 Completed 201602/10/2017 02/05/20 17 - Comments only - Ana Her MD - Persiste nt over several months, we will collect stool for C. 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 6 mm PT1NO E2P2 poistive , HER2 negative MD [address], [place], [address] , [facility] 4 20:38:49 Pain in left lower limb 379496560 [facility] 10:32:00 Pain in thoracic spine 270189611 Active 2016 [facility] 4 10:32:06 Spasm 63080107 Active 2017 [facility] 4 10:33:28 Abdomina l distensi on, gaseous 349264333 Completed 201703/08/2018 Problem Code: R14.0; Problem Code Type: ICD-10; Not Available [facility] 3 05:53:50 Cellulit is of toe 47169833 Completed 201808/12/2018 Problem Code: L03.039; Problem Code Type: ICD-10; Not Available [facility] 3 05:53:51 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 2018 [facility] 4 14:36:02 Tachycar lea 8090285 Completed 201811/25/2018 Problem Code: R00.0; Problem Code Type: ICD-10; Not Available [facility] 3 05:53:51 Pre-surg ruben evaluati on Completed 201811/25/2018 Problem Code: Z01.818; Problem Code Type: ICD-10; Not Available [facility] 3 05:53:51 Iron deficien cy anemia 17352205 Active 2019 elevated MCV: normal B12 2021, normal folate 2018 IV iron 2023 EGD 01/2022 paraesop hageal hernia (since repaired ) colo 03/[address], [place], [address] , [facility], [facility]. 4 11:44:45 Lumbago with sciatica 104705867 Completed 201903/16/2020 02/24/20 20 - Comments only - Vy Pinon [employer] - Likely aggravat ed by increase d [...] M54.40; Problem Code Type: ICD-10; Not Available [facility] 3 05:53:52 Right side sciatica 35743211241 9101 Active 2019 EVIE HOOPER [facility] 4 10:33:09 Left side sciatica 15891956268 9104 Active [address], [place], [address] , [facility] 4 17:20:20 Diaphrag matic hernia 42543288 Completed 202108/11/2023 Removal Reason: s/p repair MD [address], [place], [address] , [facility] 4 20:50:39 History of SARS-CoV -2 [id number] 7480724 Completed 202104/04/2022 03/21/20 22 - Comments only - Ana Her MD - testing is negative today in the office. Still some fatigue but otherwis e recoveri ng. Did get MAB. Already had covid bivalent booster prior to illness Problem Code: Z86.16; Problem Code Type: ICD-10; Not Available [facility] 3 05:53:53 Diarrhea 72305247 Completed 202104/18/2022 Problem Code: R19.7; Problem Code Type: ICD-10; MD [address], [facility] [address] , [facility] 4 21:03:02 Screenin g mammogra phy Completed 202208/11/[address], [address] , [facility] 4 20:36:56 Carpal tunnel syndrome of left wrist 08046697732 9102 Completed 202201/23/2023 Problem Code: G56.02; Problem Code Type: ICD-10; Not Available [facility] 4 05:37:46 Diarrhea 49903511 Active 2022 started colestip ol 01/[address], [facility] [address] , [facility] 4 21:03:02 Carpal tunnel syndrome of right wrist 70716038905 9108 Completed 201803/19/2020 Problem Code: G56.01; Problem Code Type: ICD-10; Not Available [facility] 3 05:53:55 Pain of left knee joint 90127117048 4107 Completed 202107/30/2022 Problem Code: M25.562; Problem Code Type: ICD-10; Not Available [facility] 3 05:53:55 Hypersom korina 26771618 Completed 201311/27/2014 Problem Code: 780.54; Problem Code Type: ICD-9; Not Available [facility] 3 05:53:56 Screenin g for disorder Completed 201909/11/2021 Problem Code: Z13.9; Problem Code Type: ICD-10; Not Available [facility] 3 05:53:56 Anemia 438489095 Completed 201903/19/2020 Problem Code: D64.9; Problem Code Type: ICD-10; Not Available [facility] 3 05:53:56 Long-ter m current use of anticoag ulant 931109058 Completed 201709/01/2018 Problem Code: Z79.01; Problem Code Type: ICD-10; Not Available [facility] 3 05:53:57 Chronic rhinitis 10749928 Completed 202108/12/2021 Problem Code: J31.0; Problem Code Type: ICD-10; Not Available [facility] 3 05:53:57 Impaired fasting glycemia 004771603 Completed 201401/28/2023 Not Available [facility] 3 05:53:57 Fatigue 46832635 Completed 201903/19/2020 Problem Code: R53.83; Problem Code Type: ICD-10; Not Available [facility] 3 05:53:58 Upper respirat ory tract infectio n caused by Influenz a A 66453393172 9104 Completed 201707/02/2017 Problem Code: J09.x2; Problem Code Type: ICD-10; Not Available [facility] 3 05:53:59 Diarrhea 94272867 Completed 201709/01/2018 ANA HER MD [facility] [address], [place], [address] , [facility]. 4 21:03:02 Acute upper respirat ory infectio n 50800687 Completed 202108/26/2021 Problem Code: J06.9; Problem Code Type: ICD-10; Not Available [facility] 3 05:53:59 Pain in right foot 12637400045 9107 Completed 202207/30/2022 Problem Code: M79.671; Problem Code Type: ICD-10; Not Available [facility] 3 05:54:00 Breast composit ion 275631452 Completed 201601/28/2023 Not Available [facility] 3 05:54:00 Changes in skin texture 322290266 Completed 202207/30/2022 Problem Code: R23.4; Problem Code Type: ICD-10; Not Available [facility] 3 05:54:01 Spasm 02237816 Completed 201603/23/2017 Problem Code: R25.2; Problem Code Type: ICD-10; EVIE RUFUS shaw, [facility] 4 10:33:28 Hyperten sive disorder 85663814 Completed 11/28/19 15 - Comments only - Ana Her MD - [facility] ed, no change in medicati ons Not Available [facility] 3 05:54:03 Arthralg ia of the ankle and/or foot 468603452 Completed 201501/30/2016 Problem Code: M25.571; Problem Code Type: ICD-10; Not Available [facility] 3 05:54:03 Dyspnea 068009412 Completed 201903/19/2020 Problem Code: R06.02; Problem Code Type: ICD-10; Danica Sechadwick shaw, [facility] 4 14:39:47 Trigger finger of right hand 22891604268 143537 Completed 201803/19/2020 Problem Code: M65.341; Problem Code Type: ICD-10; Not Available [facility] 3 05:54:06 Cough 73236256 Completed 202108/12/2021 Problem Code: R05.1; Problem Code Type: ICD-10; Not Available [facility] 3 05:54:06 At risk - finding 753464246 Completed 201811/11/2018 Problem Code: Z91.89; Problem Code Type: ICD-10; Not Available [facility] 3 05:54:06 Cough 72340152 Completed 201706/15/2017 Problem Code: R05; Problem Code Type: ICD-10; Not Available [facility] 3 05:54:07 Preopera tive cardiova scular examinat ion Completed 202112/18/2021 Problem Code: Z01.810; Problem Code Type: ICD-10; Not Available [facility] 3 05:54:08 Arterial bruit 43527601 Completed 202109/11/2021 Not Available [facility] 3 05:54:08 Gastroes ophageal reflux disease 542749393 Completed Not Available [facility] 3 05:54:09 Imaging of musculos keletal system abnormal 465864370 Completed 201603/23/2017 Problem Code: R93.7; Problem Code Type: ICD-10; Not Available [facility] 3 05:54:10 Blood glucose outside referenc e range 950747156 Completed 201503/20/2016 Problem Code: R73.09; Problem Code Type: ICD-10; Not Available [facility] 3 05:54:10 Abdomina l aortic aneurysm 185956792 Completed 195912/04/2014 Not Available [facility] 3 05:54:11 Lung field abnormal 266884151 Completed 202109/11/2021 Problem Code: R91.8; Problem Code Type: ICD-10; Not Available [facility] 3 05:54:11 Ingrowin g nail 039886618 Completed 201503/23/2017 Problem Code: L60.0; Problem Code Type: ICD-10; Not Available [facility] 3 05:54:11 Hypokale karyn 70597927 Completed 201504/17/2016 Problem Code: E87.6; Problem Code Type: ICD-10; Not Available [facility] 3 05:54:12 Spasm 47031630 Completed 202201/23/2023 Problem Code: M62.838; Problem Code Type: ICD-10; EVIE shaw [facility] 4 10:33:28 Aneurysm of ascendin g aorta 872567988 Active [address], [place], [address] , [facility] 4 19:24:51 Bicuspid aortic valve 92470594 Active 2023 severe by ECHO 07/[address], [place], [address] , [facility] 4 19:33:10 Osteopen ia 336863438 Active 2023 EVIE shaw, [facility] 4 10:28:13 Venous stasis 23703913 Active 2023 EVIE shaw, [facility] 4 10:29:14 Chronic kidney disease 517924466 Active 2017 Stage 3bA1v eGFR 42-[address], [place], [address] , [facility] 4 20:49:29 Dyspnea on exertion 72016530 Active 2018 Danica chadwick shaw, [facility] 4 14:39:44 Hiatal hernia 34175698 Completed 202108/11/2023 lap repair MD [address], [place], [address] , [facility] 4 20:51:15 Edema of lower extremit y 292142904 Active [address], [place], [address] , [facility] 4 20:55:49 Atrial fibrilla tion 46144719 Active 2016 s/p pulmonoa ry vein isolatio n 05/2018, chronic anticoag ulation with Xarelto MD [address], [place], [address] , [facility] 4 09:14:08 Obesity 109812981 Active [address], [address] 4 09:26:22 Cardiac pacemake r in situ 887502171 Active 2023 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 MD [address], [address] 4 09:13:49 Swelling of bilatera l lower limbs 989339631 Active [address], [address] 14:35:13 Problem Notes None recorded. Procedures Surgical History Date Name Laterality Status Provider Name and Address Organization Details Recorded Time 10/26/19 cardiac pacemaker procedure completed MD [address], [address] 03/16/2024 16:33:27 10/20/19 transcatheter aortic valve implantation completed MD [address], [address] 03/16/2024 16:32:53 Imaging Results None recorded. Procedure Notes None recorded. Medical Equipment None Reported. Allergies Allergen ID Allergen Name Allergen Category Reaction Reaction Severity Criticality Documentation Date Start Date Code Code System Note Provider Name and Address Organization Details Recorded Time 45043 amlodipin e medicatio n swelling severe high 11/18/2023 61268 RxNorm Shaneka Herrera MA null, [facility] 13:47:28 Medications Name Sig Start Date [...] 1 tab by mouth daily 06/02 [facility] Not Available Not Available Not [...] 1 tab by mouth daily 2013 active [employer] Not Available Not Available Not Available gabapenti n 100 mg capsule Take 1 cap by mouth three times daily 2015 active Not Available Not Available Not Avai lable metoprolo l succinate ER 25 mg tablet,ex tended release 24 hr Take 1 tab by mouth daily 2017 active [employer] Not Available Not Available Not [...] Updated DateTime 5 164.34 cm 28.7 kg/m2 62007.3 g 97 [degF] 82 /min 18 /min 128 mm[Hg] 72 mm[Hg] KRYSTAL SKELTON LPN [facility] 13:47:58 Social History Question Answer Notes LastModified by Organizat ion Details LastModified Time Tobacco Smoking Status Never Smoker KRYSTAL SKELTON LPN [facility], [facility] 08/12/2023 07:44:55 Date Of Most Recent [...] And Wanted Help? (For Example, If You [place] Very Nervous, Lonely, Or Blue; Got Sick [...] Safety Concerns In Your Home (see Attached [facility] Pamphlet)? No Information not available [...] Details Recorded Time Pneumococcal conjugate PCV20, polysaccharide SBI236 conjugate, adjuvant, PF 4 completed MD [address], [place] [address], [facility] 08/12/2023 11:52:18 COVID-19, mRNA, LNP-S, PF, vanda-sucrose, 30 mcg/0.3 mL 4 completed MD [address], [address] 08/12/2023 11:52:18 COVID-19, mRNA, LNP-S, PF, vanda-sucrose, 30 mcg/0.3 mL 4 completed MD [address], [address] 03/04/2024 15:04:49 Tdap 1 completed Not Available [facility] 03/13/2023 06:18:37 Tdap 1 completed Not Available [facility] 03/13/2023 06:18:37 zoster live 5 completed Not Available [facility] 03/13/2023 06:18:37 Influenza, high-dose, trivalent, PF 8 completed Not Available [facility] 03/13/2023 06:18:38 Influenza, split virus, trivalent, preservative 6 completed Not Available [facility] 03/13/2023 06:18:38 Pneumococcal Conjugate, unspecified formulation 5 completed Not Available [facility] 03/13/2023 06:18:38 Influenza, split virus, quadrivalent, preservative 7 completed Not Available [facility] 03/13/2023 06:18:38 Influenza, high-dose, quadrivalent, PF 2 completed Not Available [facility] 03/13/2023 06:18:38 Influenza, high-dose, quadrivalent, PF 1 completed Not Available [facility] 03/13/2023 06:18:38 Influenza, high-dose, quadrivalent, PF 0 completed Not Available [facility] 03/13/2023 06:18:38 COVID-19, mRNA, LNP-S, PF, 100 mcg/0.5mL dose or 50 mcg/0.25mL dose 1 completed Not Available [facility] 03/13/2023 06:18:38 COVID-19, mRNA, LNP-S, PF, 100 mcg/0.5mL dose or 50 mcg/0.25mL dose 1 completed Not Available [facility] 03/13/2023 06:18:39 COVID-19, mRNA, LNP-S, PF, 100 mcg/0.5mL dose or 50 mcg/0.25mL dose 1 completed Not Available [facility] 03/13/2023 06:18:39 COVID-19, mRNA, LNP-S, bivalent, PF, 30 mcg/0.3 mL dose 2 completed Not Available [facility] 03/13/2023 06:18:39 pneumococcal polysaccharide PPV23 1 completed Not Available [facility] 03/13/2023 06:18:39 influenza, unspecified formulation 6 completed Not Available [facility] 03/13/2023 06:18:39 influenza, unspecified formulation 4 completed Not Available [facility] 03/13/2023 06:18:39 Influenza, high-dose, quadrivalent, PF 3 completed Not Available [facility] 05/15/2023 05:33:16 Past Encounters Encounter ID Performer Location Encounter Start Date Encounter Closed Date Diagnosis/Indication Diagnosis SNOMED-CT Code Diagnosis ICD10 Code Diagnosis Note [id number] ANA HER MD [address] [place] [address] [place] [address] 05/23/2024 13:45:51 05/23/2024 14:12:00 Chronic diarrhea 607801879 K52.9 titrate up the colestipol . Referral back to GI to discuss colonoscop y Atrial fibrillation 4943 6004 I48.91 She has possible ablation scheduled and follow up with EP, will request her recent cardiovers ion admission records. Diarrhea 26054503 R19.7 Essential hypertension 14646173 I10 well controlled , no change in medication s. Hypothyroidism 50838369 E03.9 recent TSH now in range. Slightly high, but given afib and weight loss, no reason to titrate dose. Iron defic iency anemia 94381115 D50.9 s/p IV iron during her last rehab stay, both H/H and iron stores have improved. Weight loss 22176616 R63 .4 most likely due to avoiding [...] ID Guarantor Name 05/23/2024 1 MEDICARE B-[place]: [employer] Digna Allan Whitney [id number] Digna Olson 05/23/2024 2 [place] [facility] [id number] Digna Olson [id number] Digna Olson Notes Date Note Type Note Provider Name and Address Organization Details Recorded Time 05/23/2024 text/html Here for follow up of multiple problems as noted below:Labs reviewed. Atrial fibrillation-she underwent another cardioversion on May 05. Apparently has an appointment for an ablation in mid June, and to follow-up with the personal computer specialist in [place] in July. She has been going to [...] virtual pacer checks other than visits in [place] s/p TAVR-she is sleeping in bed with [...] taking oral iron. Had seen [facility] about colonoscopy due to diarrhea, but appears that was postponed due to her aortic stenosis/TAVR... repeat CBC and iron studies were reassuring, all improved. prediabetes- A1C was back in the normal range at 5.4% ANA HER MD [address], [place], [address], [place] - [facility]. 05/23/2024 15:51:12 OBGyn Episode No OBEpisode recorded.
--- OUTSIDE RECORDS SUMMARY | 2024-05-30 11:15 | XMS_ITS | Continuity of Care Document ---
Author Organization [place] [facility], [facility] [place] [address] Care Team Providers Care Cnc Router Operator Name Role Phone GABINODC Legal Analyst [facility] Orthopedic Surgeon [facility] Sleep Medicine [facility] Drywall Application Supervisor Assessment No assessment recorded. Plan of Treatment Reminders Order Date Submit Date Provider Last Modified By Organization Details Last Modified Time Details Appointments None recorded. Lab BMP, serum or plasma 2023 024 [facility] (Registration ), [address] [place] [address] [place], [address], 4 11:42:49 vitamin D, 25-hydroxy , total, serum 2023 024 [facility] (Registration ), [address] [place] [address] [place], [address], 4 16:09:19 HbA1c (hemoglobi n A1c), blood 2023 024 [facility] (Registration ), [address] [place] [address] [place], [address], 4 11:39:49 TSH, serum, reflex free T4 2023 024 [facility] (Registration ), [address] [place] [address] [place], [address], 4 11:40:25 CBC 2023 024 [facility] (Registration ), [address] [place] [address] [facility] [place], [address], 4 15:08:25 ferritin, serum or plasma 2023 024 [facility] (Registration ), [address] [place] [address] [place], [address], 4 11:41:22 iron + total iron-lynn ng capacity (TIBC), serum 2023 024 [facility] (Registration ), [address] [place] [address] [place], [address], 4 11:43:17 Referral None recorded. Procedures None [...] humeral fracture 2023- MD [address], [place], [address] , [facility] 4 17:34:10 Hypothyr oidism 16786879 Active 1959 EVIE shaw, [facility] 4 10:29:59 [facility] hyperten jason 02405152 Active 1959 EVIE shaw, [facility] 4 10:29:36 Hyperlip idemia 11026007 Active 1959 on statin MD [address], [place], [address] , [facility] 4 20:35:18 Spinal stenosis of lumbar region 99061200 Active 2012 s/p lumbar foramino parish L4 MD [address], [place], [address] , [facility] 4 20:36:41 Sleep apnea 23999498 Active 2012 on CPAP MD [address], [place], [address] , [facility] 4 20:39:31 Gastroes ophageal reflux disease without esophagi tis 557939134 Completed 195908/12/2023 Removal Reason: resolved with surgical repair of HH MD [address], [facility] [address] , [facility] 4 10:41:24 Family history of malignan t neoplasm of digestiv e organ 395472277 Active [address], [place], [address] , [facility] 4 20:37:03 Paresthe samir 86665824 Completed 201412/01/2014 11/28/19 15 - Comments only - Ana Wade MD - check B12 and folate Problem Code: R20.2; Problem Code Type: ICD-10; Not Available [facility] 3 05:53:48 Adult health examinat ion Active [address], [place], [address] , [facility] 4 20:33:34 Pre-surg ruben evaluati on [...] Z01.818; Problem Code Type: ICD-10; Not Available [facility] 3 05:53:48 Localize d edema 287687602 Completed 201501/29/2016 12/13/19 16 - Comments only - Ana Wade MD - and some on left as well, will check BMP. Problem Code: R60.0; Problem Code Type: ICD-10; MD [address], [place], [address] , [facility] 4 20:54:49 Prediabe jasson 317253443 Active 2015 EVIE shaw, 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 4 10:32:59 Pain in left lower limb 072131408 Completed 201607/27/2016 06/27/19 17 - Comments only [...] 4 10:32:00 Epidermo id cyst of skin 122851448 Completed 201611/14/2016 10/17/19 17 - Comments only - Ana Wade MD - Inflamed , I suggeste d hot packing, if not resolvin g we can refer to Dr. Nusrat esparza for removal. Problem Code: L72.3; Problem Code Type: ICD-10; Not Available [facility] 3 05:53:49 Chronic ulcer of foot 098702135 Completed 201601/16/2017 12/18/19 17 - Comments only - Ana Wade MD - Due to injury. This does appear to have some granulat ion tissue and to be healing. She is given a prescrip tion for Keflex to take only if erythema seems to be extendin g. Problem Code: L97.509; Problem Code Type: ICD-10; Not Available [facility] 3 05:53:49 Diarrhea 71465271 Completed 201602/10/2017 02/05/20 17 - Comments only - Ana Wade MD - Persiste nt over several months, we will collect stool for C. difficil e, Giardia, culture, and lactofer rin Problem Code: R19.7; Problem Code Type: ICD-10; ANA WADE MD [address], [place], [address] , [facility] 4 21:03:03 Polyp of cervix 57341693 Active 2016 EVIE shaw, 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 6 mm PT1NO E2P2 poistive , HER2 negative ANA WADE MD [address], [place], [address] , [facility] 4 20:38:49 Pain in left lower limb 784671710 Active 2016 EVIE shaw [facility]. 4 10:32:00 Pain in thoracic spine 658692427 Active 2016 EVIE shaw [facility]. 4 10:32:06 Spasm 40086008 Active 2017 EVIE shaw [facility]. 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 4 14:36:02 Tachycar lea 5712414 Completed 201811/25/2018 Problem Code: R00.0; Problem Code Type: ICD-10; Not Available [facility] 3 05:53:51 Pre-surg ruben evaluati on Completed 201811/25/2018 Problem Code: Z01.818; Problem Code Type: ICD-10; Not Available [facility] 3 05:53:51 Iron deficien cy anemia 19369601 Active 2019 elevated MCV: normal B12 2021, normal folate 2018 IV iron 2023 EGD 01/2022 paraesop hageal hernia (since repaired ) colo 03/2017 normal ANA WADE MD [address], [place], [address] , [facility] 4 11:44:45 Lumbago with sciatica 172234015 Completed 201903/16/2020 02/24/20 20 - Comments only - yV Araujocarol Pinon TRANSIT OPERATOR - Likely aggravat ed by increase [...] Code Type: ICD-10; Not Available [facility] 3 05:53:52 Right side sciatica 43611377782 9101 Active 2019 EVIE shaw, [facility] 4 10:33:09 Left side sciatica 69908251858 9104 Active [address], [place] [address] , [facility] 4 17:20:20 Diaphrag matic hernia 58721309 Completed 202108/11/2023 Removal Reason: s/p repair MD [address], [place] [address] , [facility] 4 20:50:39 History of SARS-CoV -2 [id number] 8396988 Completed 202104/04/2022 03/21/20 22 - Comments only - Ana Wade MD - testing is negative today in the office. Still some fatigue but otherwis e recoveri ng. Did get MAB. Already had covid bivalent booster prior to illness Problem Code: Z86.16; Problem Code Type: ICD-10; Not Available [facility] 3 05:53:53 Diarrhea 49623145 Completed 202104/18/2022 Problem Code: R19.7; Problem Code Type: ICD-10; MD [address], [facility] [address] , [facility] 4 21:03:02 Radhain g mammogreduardo phy Completed 202208/11/[address], [facility] [address] , [facility] 4 20:36:56 Carpal tunnel syndrome of left wrist 65288313113 9102 Completed 202201/23/2023 Problem Code: G56.02; Problem Code Type: ICD-10; Not Available [facility] 4 05:37:46 Diarrhea 31642309 Active 2022 started colestip ol 01/[address], [place], [address] , [facility] 4 21:03:02 Carpal tunnel syndrome of right wrist 75076473774 9108 Completed 201803/19/2020 Problem Code: G56.01; Problem Code Type: ICD-10; Not Available [facility] 3 05:53:55 Pain of left knee joint 37829644680 4107 Completed 202107/30/2022 Problem Code: M25.562; Problem Code Type: ICD-10; Not Available [facility] 3 05:53:55 Hypersom korina 64436787 Completed 201311/27/2014 Problem Code: 780.54; Problem Code Type: ICD-9; Not Available [facility] 3 05:53:56 Screenin g for disorder Completed 201909/11/2021 Problem Code: Z13.9; Problem Code Type: ICD-10; Not Available [facility] 3 05:53:56 Anemia 655762205 Completed 201903/19/2020 Problem Code: D64.9; Problem Code Type: ICD-10; Not Available [facility] 3 05:53:56 Long-ter m current use of anticoag ulant 666212748 Completed 201709/01/2018 Problem Code: Z79.01; Problem Code Type: ICD-10; Not Available [facility] 3 05:53:57 Chronic rhinitis 53300762 Completed 202108/12/2021 Problem Code: J31.0; Problem Code Type: ICD-10; Not Available [facility] 3 05:53:57 Impaired fasting glycemia 468610328 Completed 201401/28/2023 Not Available [facility] 3 05:53:57 Fatigue 96864037 Completed 201903/19/2020 Problem Code: R53.83; Problem Code Type: ICD-10; Not Available [facility] 3 05:53:58 Upper respirat ory tract infectio n caused by Influenz a A 93942840617 9104 Completed 201707/02/2017 Problem Code: J09.x2; Problem Code Type: ICD-10; Not Available [facility] 3 05:53:59 Diarrhea 83838749 Completed 201709/01/2018 ANA WADE MD [address], [place], [address] [facility] 4 21:03:02 Acute upper respirat ory infectio n 45235963 Completed 202108/26/2021 Problem Code: J06.9; Problem Code Type: ICD-10; Not Available [facility] 3 05:53:59 Pain in right foot 18573927760 9107 Completed 202207/30/2022 Problem Code: M79.671; Problem Code Type: ICD-10; Not Available [facility] 3 05:54:00 Breast composit ion 602272496 Completed 201601/28/2023 Not Available [facility] 3 05:54:00 Changes in skin texture 532962691 Completed 202207/30/2022 Problem Code: R23.4; Problem Code Type: ICD-10; Not Available [facility] 3 05:54:01 Spasm 66968714 Completed 201603/23/2017 Problem Code: R25.2; Problem Code Type: ICD-10; EVIE shaw [facility] 4 10:33:28 Hyperten sive disorder 57227235 Completed 11/28/19 15 - Comments only - Ana Wade MD - [facility] ed, no change in medicati ons Not Available [facility] 3 05:54:03 Arthralg ia of the ankle and/or foot 467304595 Completed 201501/30/2016 Problem Code: M25.571; Problem Code Type: ICD-10; Not Available [facility] 3 05:54:03 Dyspnea 534515333 Completed 201903/19/2020 Problem Code: R06.02; Problem Code Type: ICD-10; [facility] 4 14:39:47 Trigger finger of right hand 57894813616 556415 Completed 201803/19/2020 Problem Code: M65.341; Problem Code Type: ICD-10; Not Available [facility] 3 05:54:06 Cough 99976210 Completed 202108/12/2021 Problem Code: R05.1; Problem Code Type: ICD-10; Not Available [facility] 3 05:54:06 At risk - finding 840851034 Completed 201811/11/2018 Problem Code: Z91.89; Problem Code Type: ICD-10; Not Available [facility] 3 05:54:06 Cough 25911341 Completed 201706/15/2017 Problem Code: R05; Problem Code Type: ICD-10; Not Available [facility] 3 05:54:07 Preopera tive cardiova scular examinat ion Completed 202112/18/2021 Problem Code: Z01.810; Problem Code Type: ICD-10; Not Available [facility] 3 05:54:08 Arterial bruit 43549750 Completed 202109/11/2021 Not Available [facility] 3 05:54:08 Gastroes ophageal reflux disease 407092468 Completed Not Available [facility] 3 05:54:09 Imaging of musculos keletal system abnormal 936969721 Completed 201603/23/2017 Problem Code: R93.7; Problem Code Type: ICD-10; Not Available [facility] 3 05:54:10 Blood glucose outside referenc e range 217358830 Completed 201503/20/2016 Problem Code: R73.09; Problem Code Type: ICD-10; Not Available [facility] 3 05:54:10 Abdomina l aortic aneurysm 707514519 Completed 195912/04/2014 Not Available [facility] 3 05:54:11 Lung field abnormal 984166378 Completed 202109/11/2021 Problem Code: R91.8; Problem Code Type: ICD-10; Not Available [facility] 3 05:54:11 Ingrowin g nail 238584634 Completed 201503/23/2017 Problem Code: L60.0; Problem Code Type: ICD-10; Not Available [facility] 3 05:54:11 Hypokale karyn 47814356 Completed 201504/17/2016 Problem Code: E87.6; Problem Code Type: ICD-10; Not Available [facility] 3 05:54:12 Spasm 36178079 Completed 202201/23/2023 Problem Code: M62.838; Problem Code Type: ICD-10; EVIE shaw, [facility]. 4 10:33:28 Aneurysm of ascendin g aorta 357651503 Active [address], [place], [address] , [facility]. 4 19:24:51 Bicuspid aortic valve 76165187 Active 2023 severe by ECHO 07/[address], [place], [address] , [facility]. 4 19:33:10 Osteopen ia 424419330 Active 2023 EVIE shaw [facility]. 4 10:28:13 Venous stasis 08940036 Active 2023 EVIE shaw [facility]. 4 10:29:14 Chronic kidney disease 486092623 Active 2017 Stage 3bA1v eGFR 42-[address], [place], [place], [address] [place] [address] , [facility] 4 20:49:29 Dyspnea on exertion 85056420 Active 2018 Danica Felix colin, [facility] 4 14:39:44 Hiatal hernia 81203226 Completed 202108/11/2023 lap repair MD [address], [place] [address] , [facility] 4 20:51:15 Edema of lower extremit y 957791290 Active [address], [place] [address] , [facility] 4 20:55:49 Atrial fibrilla tion 33864482 Active 2016 s/p pulmonoa ry vein isolatio n 05/2018, chronic anticoag ulation with Xarelto MD [address], [place], [place], [address] [place] [address] , [facility] 4 09:14:08 Obesity 437892433 Active [address], [place], [address] [place] [address] , [facility] 4 09:26:22 Cardiac pacemake r in situ 500210620 Active 2023 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 MD [address], [place] [address] , [facility] 4 09:13:49 Swelling of bilatera l lower limbs 792389778 Active [address], [place] [address] , [facility] 14:35:13 Problem Notes None recorded. Procedures Surgical History Date Name Laterality Status Provider Name and Address Organization Details Recorded Time 10/26/19 cardiac pacemaker procedure completed MD [address], [place], [address], [facility] 03/16/2024 16:33:27 10/20/19 transcatheter aortic valve implantation completed MD [address], [place], [address], [facility] 03/16/2024 16:32:53 Imaging Results None recorded. Procedure Notes None recorded. Medical Equipment None Reported. Allergies Allergen ID Allergen Name Allergen Category Reaction Reaction Severity Criticality Documentation Date Start Date Code Code System Note Provider Name and Address Organization Details Recorded Time 61911 amlodipin e medicatio n swelling severe high 11/18/2023 15668 RxNorm HIRA Hodge, [facility] 13:47:28 [...] 1 tab by mouth daily 06/02 completed [facility] Not Available Not Available [...] Smoking Status Never Smoker KRYSTAL SKELTON LPN [facility], [place] - [facility]. 08/12/2023 07:44:55 Date Of Most Recent [...] And Wanted Help? (For Example, If You [place] Very Nervous, Lonely, Or Blue; Got Sick [...] Details Recorded Time Pneumococcal conjugate PCV20, polysaccharide [id number] conjugate, adjuvant, PF 4 completed MD [address], [address] 08/12/2023 11:52:18 COVID-19, mRNA, LNP-S, PF, vanda-sucrose, 30 mcg/0.3 mL 4 completed MD [address], [facility] [address] 08/12/2023 11:52:18 COVID-19, mRNA, LNP-S, PF, vanda-sucrose, 30 mcg/0.3 mL 4 completed MD [address], [address] 03/04/2024 15:04:49 Tdap 1 completed Not Available [facility] 03/13/2023 06:18:37 Tdap 1 completed Not Available [facility] 03/13/2023 06:18:37 zoster live 5 completed Not Available [facility] 03/13/2023 06:18:37 Influenza, high-dose, trivalent, PF 8 completed Not Available [facility] 03/13/2023 06:18:38 Influenza, split virus, trivalent, preservative 6 completed Not Available [facility] 03/13/2023 06:18:38 Pneumococcal Conjugate, unspecified formulation 5 completed Not Available [facility] 03/13/2023 06:18:38 Influenza, split virus, quadrivalent, preservative 7 completed Not Available [facility] 03/13/2023 06:18:38 Influenza, high-dose, quadrivalent, PF 2 completed Not Available [facility] 03/13/2023 06:18:38 Influenza, high-dose, quadrivalent, PF 1 completed Not Available [facility] 03/13/2023 06:18:38 Influenza, high-dose, quadrivalent, PF 0 completed Not Available [facility] 03/13/2023 06:18:38 COVID-19, mRNA, LNP-S, PF, 100 mcg/0.5mL dose or 50 mcg/0.25mL dose 1 completed Not Available [facility] 03/13/2023 06:18:38 COVID-19, mRNA, LNP-S, PF, 100 mcg/0.5mL dose or 50 mcg/0.25mL dose 1 completed Not Available [facility] 03/13/2023 06:18:39 COVID-19, mRNA, LNP-S, PF, 100 mcg/0.5mL dose or 50 mcg/0.25mL dose 1 completed Not Available [facility] 03/13/2023 06:18:39 COVID-19, mRNA, LNP-S, bivalent, PF, 30 mcg/0.3 mL dose 2 completed Not Available [facility] 03/13/2023 06:18:39 pneumococcal polysaccharide PPV23 1 completed Not Available [facility] 03/13/2023 06:18:39 influenza, unspecified formulation 6 completed Not Available [facility] 03/13/2023 06:18:39 influenza, unspecified formulation 4 completed Not Available [facility] 03/13/2023 06:18:39 Influenza, high-dose, quadrivalent, PF 3 completed Not Available [facility] 05/15/2023 05:33:16 Past Encounters Encounter ID Performer Location Encounter Start Date Encounter Closed Date Diagnosis/Indication Diagnosis SNOMED-CT Code Diagnosis ICD10 Code Diagnosis Note [id number] Samantha Razo RN [address] [place] [address] 04/18/2024 10:14:04 04/18/2024 10:46:21 Osteoporotic fracture 21808963 M80.00XD Hypothyroidism 08709347 E03.9 Iron defic iency anemia 93948789 D50.9 Chronic ki dney disease 120678655 N18.9 Prediabetes 728031233 R7 3.03 Health Concerns Section Related Observation LastModified by Organization Detai ls LastModified Time None Recorded Concern Status LastModified by Organization Details LastModified Time None Recorded Payers Encounter Date Sequence Insurance Name Policy Number Policy Palacio Covered Member ID Palacio Member ID Guarantor Name 04/18/2024 1 [place] [employer] Digna Olson [id number] Digna Olson 04/18/2024 2 [place] [facility] [id number] Digna Olson [id number] Digna Olson OBGyn Episode No OBEpisode recorded.
--- OUTSIDE RECORDS SUMMARY | 2024-05-30 11:16 | XMS_ITS | Encounter Summary ---
[place] [address] Care Team Providers Care Mill Roll Operator Name Role Phone Ana Her MD Primary Care Provider [phone] Encounter Details Date Type Department Care Team (Late st Contact Info) Description 02/04/2022 12:00 PM EDT Notes [place] [address] Social History Tobacco Use Types Packs/Day Years [...] on filedocumented in this encounter Care Teams Mill Roll Operator Relationship Specialty Start Date End Date Ana Her MD [address] [place] [address] PCP - General 07/29/13 documented as of this encounter
--- OUTSIDE RECORDS SUMMARY | 2024-05-30 11:16 | XMS_ITS | Encounter Summary ---
[place] [address] Care Team Providers Care Pathological Technician Name Role Phone Ana Her MD Primary Care Provider [phone] Encounter Details Date Type Department Care Team (Late st Contact Info) Description 01/08/2022 7:30 AM EDT - 01/08/2022 8:40 AM EDT Surgery [place] [phone] Laura Park MD [facility] [address] EGD, UPPER GI ENDOSCOPY (WRVU 2.09) Social [...] a nurse in the Thoracic Clinic at [phone]. After hours or on weekends or holidays please call: [phone] and ask to speak to the Thoracic Physician validation scientist. Diet: You should follow a clear liquid [...] - 5pm): General Surgery and Bariatric Surgery [phone] Bariatric Surgeons: Drs. Park and John [phone] Thermal Cutting Machine Operator: [phone] Dietitians: [phone] Outside of regular business hours, including weekends and holidays: Ask for General Surgery resident validation scientist [phone] Please note, this call will be answered [...] of left breast of female, estrogen receptor wgorvtwfN15.512, Z17.0 ??? Anemia D64.9 ??? Aortic valve [...] Park MD - 01/08/2022 7:48 AM EDT [facility] [place] Patient Name: Digna Olson : [id number] MR#: [id number] Case Date: 01/08/2022 Surgeon: Surgeon(s) and Role: [...] Info Order Time SPECIMEN TO PATHOLOGY Gastric Bertie for H Pylori Hiatal hernia Gastric Bertie for H Pylori excision 01/08/2022 8:15 AM [...] 8:14 AM EDT Upper GI Endoscopy, Diagnostic (90059) Yes 01/08/2022 7:40 AM EDT Hiatal hernia [...] PATHOLOGY/CYTOLOGY ORDERABLES [facility] [place] [place] [address] * Surgical Pathology Report (01/08/2022 8:14 AM EDT) Final Diagnosis [id number] ? Location: SDP; SD36; A The signing pathologist has (i) examined the relevant preparation(s) for the specimen(s) and (ii) rendered or confirmed the diagnosis(es). . ?Surgical Pathology DIAGNOSIS A - Gastric ??Antrum for H Pylori, excision: - ??Antrum-type mucosa with reactive gastropathy. Electronically signed by: ?Umang Raymundo MD Verified: ??01/09/2022 16:36 ??Pathologist Performed at: ??-[facility] Dept. [place], [place], [place] SPECIMEN(S) SUBMITTED A - Gastric ??Antrum [...] City/State/[facility] Co de Phone Number [facility] [place] [address] * POCT Glucose (01/08/2022 6:33 AM EDT) Glucose, POC 120 65 - 199 mg/dL [facility] Comment: Supplemental ranges: <140 mg/dL before meals <180 mg/dL all other times of the day Blood 01/08/2022 6:33 AM EDT 01/08/2022 6:33 AM EDT Laura Park MD POINT [place] [address] documented in this encounter Visit Diagnoses Not on filedocumented in this encounter Active and Recently Administered Medications Care Teams Pathological Technician Relationship Specialty Start Date End Date Ana Her MD [address] [facility] [address] [place] [address] PCP - General 07/29/13 documented as of this encounter
--- OUTSIDE RECORDS SUMMARY | 2024-05-30 11:16 | XMS_ITS | Encounter Summary ---
[place] [address] Care Team Providers Care Newspaper Carrier Name Role Phone Aan Her MD Primary Care Provider [phone] Encounter Details Date Type Department Care Team (Late st Contact Info) Description 02/03/2023 Telephone [place]ematology [place] [phone] Maryam Barrett Social History Tobacco Use Types [...] on filedocumented in this encounter Care Teams Newspaper Carrier Relationship Specialty Start Date End Date Ana Her MD [address] [place] [address] PCP - General 07/29/13 documented as of this encounter
--- OUTSIDE RECORDS SUMMARY | 2024-05-30 11:16 | XMS_ITS | Encounter Summary ---
Author Organization [facility] [place] [address] Care Team Providers Care Pressing Department Supervisor Name Role Phone Ana Her MD Primary Care Provider [phone] Encounter Details Date Type Department Care Team (Late st Contact Info) Description 03/09/2022 11:00 PM EST Ancillary Procedure Radiology Library at [facility] [place] [address] Ana Her MD [address] [place] [address] [facility] 1 [place], [place] [id number] Social History Tobacco Use Types Packs/Day Years [...] Chest (03/09/2022 10:56 PM EST) Narrative [facility] [place] - 03/09/2022 10:56 PM EST This exam is auto-finalizing. It's purpose is for storage only. Ana Her MD IM FILM LIBRARY ORD ERABLES [place], [place] documented in this encounter Visit Diagnoses Not on filedocumented in this encounter Care Teams Pressing Department Supervisor Relationship Specialty Start Date End Date Ana Her MD [address] [facility] [address] [place] [address] PCP - General 07/29/13 documented as of this encounter
--- OUTSIDE RECORDS SUMMARY | 2024-05-30 11:16 | XMS_ITS | Encounter Summary ---
[place] [address] Care Team Providers Care Cathead Worker Name Role Phone Ana Her MD Primary Care Provider [phone] Encounter Details Date Type Department Care Team (Late st Contact Info) Description 12/17/2021 Telephone [place] [phone] Roma Estrada RN Social History Tobacco Use [...] on filedocumented in this encounter Care Teams Cathead Worker Relationship Specialty Start Date End Date Ana Her MD [address] [place] [address] PCP - General 07/29/13 documented as of this encounter
--- OUTSIDE RECORDS SUMMARY | 2024-05-30 11:16 | XMS_ITS | Encounter Summary ---
Author Organization [facility] [address] Care Team Providers Care Bmx Rider Name Role Phone Ana Her MD Primary Care Provider [phone] Encounter Details Date Type Department Care Team (Late st Contact Info) Description 03/09/2022 Telephone [place] [address] Prakash Mendez MD [facility] [place] [address] Social History Tobacco Use Types Packs/Day Years [...] the mobile number listed in her chart ([phone]). Her other daughter answered the phone and reported that she had just dropped her off in the Emergency Department at [facility] and parked the car. She was walking back to the building to be with her. I reassured her that going to the Emergency Department seemed like a reasonable plan. I assured her that we are always happy to see her here at [facility] anytime and that they could call back anytime with further questions or concerns. This note will be routed to the provider mentioned above. Prakash Mendez MD documented in this encounter Plan of Treatment Not on file documented as of this encounter Visit Diagnoses Not on filedocumented in this encounter Care Teams Bmx Rider Relationship Specialty Start Date End Date Ana Her MD [address] [place] [address] PCP - General 07/29/13 documented as of this encounter
--- OUTSIDE RECORDS SUMMARY | 2024-05-30 11:16 | XMS_ITS | Encounter Summary ---
[place] [address] Care Team Providers Care Supervisor Self Service Store Name Role Phone Ana Her MD Primary Care Provider [phone] Reason for Visit * Auth/Cert Specialty Diagnoses / Procedures Referred By Christiano hackett Referred To Contact Diagnoses S/P repair of paraesophageal hernia Post-Op monitoring Procedures PRO LAPARSCOPY REPAIR PARAESOPHAGEAL HERNIA INCL FUNDOPLASTY W/O MESH LAPAROSCOPIC PARAESOPHAGEAL HERNIA REPAIR W/FUNDOPLASTY, W/O MESH (WRVU 26.6) MODIFIER TOUPET FUNDOPLASTY Laura Will MD [facility] [place] [address] [facility] Referral ID Status Reason Start Date Expiration Date Visits Re quested Visits Authorized [id number] 1 1 Encounter Details Date Type Department Care Team (Late st Contact Info) Description 03/05/2022 1:58 PM EDT Anesthesia [place] [phone] Alisa Naqvi MD [facility] DR [place] [address] Alessia Ramirez APR[place] [address] Anesthesia Record Procedure Summary Procedure Name Responsible [...] Procedure Summary Date: 03/05/22 Room / Location: [address] MAIN OR Anesthesia Start: 8 Anesthesia Stop: 1823 Procedures: LAPAROSCOPIC PARAESOPHAGEAL HERNIA REPAIR W/FUNDOPLASTY, W/O MESH (WRVU 26.6) (N/A Abdomen) MODIFIER TOUPET FUNDOPLASTY (N/A Abdomen) Diagnosis: (Paraesophageal Hernia) Surgeons: Laura Will MD Responsible Provider: Alisa Naqvi MD Anesthesia Type: general ASA Status: 3 All Anesthesia Providers: Anesthesiologist: Brayan Hubbard MD; Alisa Naqvi MD; Dario Franco MD Filler Spreader: Mo Vance DO Vitals Value Taken Time BP 125/75 03/05/22 1821 Temp Pulse 77 03/05/22 1823 Resp 18 03/05/22 1823 SpO2 100 % 03/05/22 182 Pain Level Vitals shown include unvalidated device data. Patient Location: PACU/[facility] Level of Consciousness: Awake and Alert [...] of left breast of female, estrogen receptor ndgftbad52/25/2017 ??? Bicuspid aortic valve 06/10/2016 ??? Dyspnea [...] 6.43) performed by Malika Chen MD at [facility] MAIN OR ??? PRO INTRAOP SENTINEL LYMPH ID W/DYE INJECTION Left 03/30/2017 INTRAOPERATIVE ID (MAPPING) SENTINEL LYMPH NODE,INCLUDES INJECTION (WRVU 2.5) performed by Malika Chen MD at [facility] MAIN OR ??? PRO MASTECTOMY PARTIAL Left 03/30/2017 MASTECTOMY PARTIAL (WRVU 10.13) performed by Malika Chen MD at [facility] MAIN OR ??? PRO UPPER GI ENDOSCOPY, DIAGNOSTIC N/A 01/08/2022 EGD, UPPER GI ENDOSCOPY performed by Laura Will MD at [facility] MAIN OR Social History Tobacco Use [...] 45%. Wall motion normal. ?? Echo 06/19/21 ([facility]): normal biventricular size and function, symmetric [...] PONV ppx Mo Shreyas DO Pinky 03/04/2022 Environmental Services Associate Pager #[phone] Region - Other Informed Consent: Anesthetic plan [...] 45%. Wall motion normal. ?? Echo 06/19/21 ([facility]): normal biventricular size and function, symmetric [...] 1 view ?? Followed by cardiology at [facility], notes under Care Everywhere. Last seen [...] mg documented in this encounter Care Teams Supervisor Self Service Store Relationship Specialty Start Date End Date Ana Her MD [address] [facility] 1 [place] [address] PCP - General 07/29/13 documented as of this encounter
--- OUTSIDE RECORDS SUMMARY | 2024-05-30 11:16 | XMS_ITS | Encounter Summary ---
Author Organization [facility] [place] [address] Care Team Providers Care Relief Pharmacist Name Role Phone Ana Her MD Primary Care Provider [phone] Encounter Details Date Type Department Care Team (Latest Contact Info) Description 01/23/2022 12:15 PM EDT TH Visit (TeleHealth) [place] [address] Laura Will MD [facility] [place] [address] Paraesophageal hernia Social History Tobacco Use Types [...] her. She is followed by cardiology at [facility], and is on xarelto. Impression: Symptomatic paraesophageal [...] gangrene documented in this encounter Care Teams Relief Pharmacist Relationship Specialty Start Date End Date Ana Her MD [address] [facility] 1 [place] [address] PCP - General 07/29/13 documented as of this encounter
--- OUTSIDE RECORDS SUMMARY | 2024-05-30 11:16 | XMS_ITS | Encounter Summary ---
[place] [address] Care Team Providers Care Hedge Trimmer Name Role Phone Ana Her MD Primary Care Provider [phone] Encounter Details Date Type Department Care Team (Late st Contact Info) Description 10/23/2022 Telephone Mammography/[place] [phone] Aby Loredo Social History Tobacco Use Types [...] on filedocumented in this encounter Care Teams Hedge Trimmer Relationship Specialty Start Date End Date Ana Her MD [address] [place] [address] PCP - General 07/29/13 documented as of this encounter
--- OUTSIDE RECORDS SUMMARY | 2024-05-30 11:16 | XMS_ITS | Encounter Summary ---
[place] [address] Care Team Providers Care Silviculture Teacher Name Role Phone Ana Her MD Primary Care Provider [phone] Reason for Visit * Auth/Cert Specialty Diagnoses / Procedures Referred By Christiano hackett Referred To Contact Diagnoses S/P repair of paraesophageal hernia Post-Op monitoring Procedures PRO LAPARSCOPY REPAIR PARAESOPHAGEAL HERNIA INCL FUNDOPLASTY W/O MESH LAPAROSCOPIC PARAESOPHAGEAL HERNIA REPAIR W/FUNDOPLASTY, W/O MESH (WRVU 26.6) MODIFIER TOUPET FUNDOPLASTY Shania Will MD [facility] [place] [address] [facility] Referral ID Status Reason Start Date Expiration Date Visits Re quested Visits Authorized [id number] 1 1 Encounter Details Date Type Department Care Team (Latest Contact Info) Description 03/05/2022 11:55 AM EDT - 03/07/2022 10:00 AM EDT Hospital Encounter [place] [id number] Shania Will MD [facility] [place] [address] Discharge Disposition: Home Social History Tobacco Use [...] of left breast of female, estrogen receptor dabfyoolP08.512, Z17.0 ??? Anemia D64.9 ??? Aortic valve [...] Per chart review, her creatinine levels in 9706-1730 ranged from 0.87-1.50 indicative of possible undiagnosed [...] PM Shania Will MD General Surgery at [facility] Arrive at: [facility] [phone] Instructions Given to Patient at Discharge: Patient [...] hours please call the Surgery Clinic at [phone] before 5 PM on weekdays. For questions after hours and on weekends please call the hospital power plant operator apprentice at [phone] and ask for the General Surgery resident numerical control operator. They may not be familiar [...] post Sly diet, as instructed by the cath laboratory technician in the hospital for a period of [...] renal function. Please call the clinic at [phone] to confirm or reschedule. Future Appointments Date Time Provider Department Center 04/03/2022 12:00 PM Shania Will MD [facility] SURG [facility] General Instructions None Future Appointments and Orders Future Appointments and Orders Future Appointments Provider Department Dept Phone 04/03/2022 12:00 PM Shania Will MD General Surgery at [facility] Arrive at: [place] [facility] Signed: Shena Harden MD 03/07/22 7:18 AM [facility] Primary Maud Physician: MD Geovany David DR [facility] [id number] documented in this encounter Discharge Instructions * [...] hours please call the Surgery Clinic at [phone] before 5 PM on weekdays. For questions after hours and on weekends please call the hospital power plant operator apprentice at [phone] and ask for the General Surgery resident numerical control operator. They may not be familiar [...] post Sly diet, as instructed by the cath laboratory technician in the hospital for a period of [...] renal function. Please call the clinic at [phone] to confirm or reschedule. Future Appointments Date Time Provider Department Center 04/03/2022 12:00 PM Shania Will MD [facility] SURG [facility] documented in this encounter Medications at Time [...] Ocampo RN - 03/07/2022 10:25 AM EDT [facility] Short Stay Unit Discharge Note All [...] Sly Diet Education to pt Digna Olson. General Internist metwith pt at bedside to deliver full [...] she is noticing some overall improvement post op.General Internist took note of this and encouraged the [...] Department contact information provided. Pt appreciate of travel writer's time. Nutrition to follow as needed. [...] Perez MD 03/05/2022 Minimally Invasive Surgery Pager #[phone] * Lorrie Slater RN - 03/05/2022 6:46 [...] ?? She is followed by cardiology at [facility], and is on [...] of left breast of female, estrogen receptor dkfigcfpB84.512, Z17.0 ??? Anemia D64.9 ??? Aortic valve [...] 6.43) performed by Malika Chen MD at [facility] MAIN OR ??? PRO INTRAOP SENTINEL LYMPH ID W/DYE INJECTION Left 03/30/2017 ?? INTRAOPERATIVE ID (MAPPING) SENTINEL LYMPH NODE,INCLUDES INJECTION (WRVU 2.5) performed by Malika Chen MD at [facility] MAIN OR ??? PRO MASTECTOMY PARTIAL Left 03/30/2017 ?? MASTECTOMY PARTIAL (WRVU 10.13) performed by Malika Chen MD at [facility] MAIN OR ?? Cholecystectomy ?? Medications: [...] Operative Note Patient Name: Digna Olson : [id number] MR#: [id number] Case Date: 03/05/2022 Surgeon: Surgeon(s) and Role: [...] Flores MD - 03/05/2022 2:32 PM EDT [facility] Operative Note Patient Name: Digna Olson : [id number] MR#: [id number] Case Date: 03/05/2022 Surgeon: Surgeon(s) and Role: [...] Repair Paraesophageal Hernia Incl Fundoplasty W/O Mesh (94204) 03/05/2022 1:58 PM EDT Paraesophageal Hernia POCT GLUCOSE Routine 03/05/2022 12:18 PM EDT LAPAROSCOPIC PARAESOPHAGEAL HERNIA REPAIR W FUNDOPLASTY, W/O MESH Routine 03/05/2022 12:02 PM EDT documented in this encounter Results * (ABNORMAL) Differential, Automated (03/07/2022 5:08 AM EDT) Neutrophil % 80.0 % [facility] Neutrophil Absolute 5.30 1.70 - 6.10 x10(3)/mc L [facility] Lymph % 12.1 % [facility] Lymphocytes Abs 0.8(L) 0.9 - 3.2 x10(3)/mc L [facility] Monocyte % 7.6 % [facility] Monocyte Abs 0.5 0.3 - 0.9 x10(3)/mc L [facility] Eos % 0.0 % [facility] Eosinophils Abs 0.0 0.0 - 0.4 x10(3)/mc L [facility] Basophil % 0.0 % [facility] Baso Absolute 0.0 0.0 - 0.1 x10(3)/[facility] Immature Gran % 0.30 % [facility] Comment: Immature granulocytes(IG's)percentage and absolute count will include metamyelocytes, myelocytes, and promyelocytes. Blood smears from CBCs yielding IG's will be scanned manually for concordance. If this scan disagrees with the automated IG or if promyelocytes are noted, a manual differential will be performed. Immature Gran Absolute 0.02 0.00 - 0.04 x10(3)/[facility] Blood 03/07/2022 5:08 AM EDT 03/07/2022 5:19 AM EDT Narrative Resulting Agency Comment Spec In Lab Nino Levy MD HEMATOLOGY ORDERABLE S Performing Organization Address City/State/[facility] Co de Phone Number [facility] [place] [address] * (ABNORMAL) Hemogram (03/07/2022 5:08 AM EDT) White Blood Cell 6.6 4.0 - 9.5 x10(3)/[facility] Red Blood Cell 3.16(L) 4.00 - 5.21 x10(6)/[facility] Hemoglobin 10.7(L) 11.7 - 15.5 g/dL [facility] Hematocrit 31.7(L) 35.7 - 45.8 % [facility] Mean Cell Volume 100.3(H) 82.6 - 94.4 fL [facility] Mean Cell Hemoglobin 33.9(H) 27.1 - 32.0 pg [facility] Mean Cell Hemoglobin Concentration 33.8 31.7 - 35.0 g/dL [facility] Platelet 110(L) 145 - 357 x10(3)/[facility] RDW Standard Deviation 47.5(H) 37.0 - 46.0 fL [facility] RDW coefficient of variation 12.9 11.5 - 14.1 % [facility] Mean Platelet Volume 11.7 7.6 - 12.9 fL [facility] NRBC% auto 0.0 % [facility] NRBC Absolute 0.000 0.000 - 0.000 x10(3)/mc L [facility] Blood 03/07/2022 5:08 AM EDT 03/07/2022 5:19 AM EDT Narrative Resulting Agency Comment Spec In Lab Nino Levy MD HEMATOLOGY ORDERABLE S [facility] [place] [address] * Phosphorus (03/07/2022 5:08 AM EDT) Phosphorus 2.7 2.5 - 4.5 mg/dL [facility] Blood 03/07/2022 5:08 AM EDT 03/07/2022 5:19 AM EDT Narrative Resulting Agency Comment Spec In Lab Shania Will MD CHEMISTRY ORDERABLE S Performing Organization Address City/[facility]/ZIP Co de Phone Number [facility] [place] [address] * Magnesium (03/07/2022 5:08 AM EDT) Magnesium 0.89 0.69 - 1.07 mmol/L [facility] Blood 03/07/2022 5:08 AM EDT 03/07/2022 5:19 AM EDT Narrative Resulting Agency Comment Spec In Lab Shania Will MD CHEMISTRY ORDERABLE S [facility] [place] [address] * (ABNORMAL) Basic Metabolic Panel (non-fasting) (03/07/2022 5:08 AM EDT) Glucose 111 65 - 199 mg/dL [facility] Comment:Diabetes: >=200 mg/d L plus symptoms Blood Urea Nitrogen 22(H) 8 - 18 mg/dL [facility] [...] [facility] Carbon Dioxide 22 22 - 31 mmol/L [facility] Anion Gap 9 5 - 15 mmol/L [facility] Calcium 9.2 8.5 - 10.5 mg/dL [facility] Est Glomerular Filtration Rate 64 >=60 mL/min/1. 73 m?? [place] [...] Lab Shania Will MD [place] [address] * (ABNORMAL) Differential, Automated (03/06/2022 10:15 AM EDT) Pathologist [facility] [place] Neutrophil % 90.7 % [facility] Neutrophil Absolute 5.79 1.70 - 6.10 x10(3)/ L [facility] Lymph % 5.0 % [facility] Lymphocytes Abs 0.3(L) 0.9 - 3.2 x10(3)/ L [facility] Monocyte % 3.8 % [facility] Monocyte Abs 0.2(L) 0.3 - 0.9 x10(3)/[facility] Eos % 0.0 % [facility] Eosinophils Abs 0.0 0.0 - 0.4 x10(3)/[facility] Basophil % 0.0 % [facility] Baso Absolute 0.0 0.0 - 0.1 x10(3)/ L [facility] Immature Gran % 0.50 % WHITE [...] Absolute 0.03 0.00 - 0.04 x10(3)/ L [facility] Blood 03/06/2022 10:1 5 AM EDT 03/06/2022 10:21 AM EDT Narrative Resulting Agency Comment Spec In Lab Maryam MUELLER [place] [address] * (ABNORMAL) Hemogram (03/06/2022 10:15 AM EDT) White Blood Cell 6.4 4.0 - 9.5 x10(3)/mc L [facility] Red Blood Cell 3.07(L) 4.00 - 5.21 x10(6)/mc L [facility] Hemoglobin 10.5(L) 11.7 - 15.5 g/dL [facility] Hematocrit 31.1(L) 35.7 - 45.8 % [facility] Mean Cell Volume 101.3(H) 82.6 - 94.4 fL [facility] Mean Cell Hemoglobin 34.2(H) 27.1 - 32.0 pg [facility] Mean Cell Hemoglobin Concentration 33.8 31.7 - 35.0 g/dL [facility] Platelet 111(L) 145 - 357 x10(3)/ L [facility] RDW Standard Deviation 47.2(H) 37.0 - 46.0 fL [facility] RDW coefficient of variation 12.9 11.5 - 14.1 % [facility] Mean Platelet Volume 11.5 7.6 - 12.9 fL [facility] NRBC% auto 0.0 % [facility] NRBC Absolute 0.000 0.000 - 0.000 x10(3)/mc L [facility] Blood 03/06/2022 10:1 5 AM EDT 03/06/2022 10:21 AM EDT Narrative Resulting Agency Comment Spec In Lab Maryam MUELLER HEMATOLOGY ORDERABL ES [facility] [place] [address] * Phosphorus (03/06/2022 10:15 AM EDT) Phosphorus 3.3 2.5 - 4.5 mg/dL [facility] Blood 03/06/2022 10:1 5 AM EDT 03/06/2022 10:21 AM EDT Narrative Resulting Agency Comment Spec In Lab Shania Will MD CHEMISTRY ORDERABLE S Performing Organization Address City/[facility]/ZIP Co de Phone Number [facility] [place] [address] * Magnesium (03/06/2022 10:15 AM EDT) Magnesium 0.69 0.69 - 1.07 mmol/L [facility] Blood 03/06/2022 10:1 5 AM EDT 03/06/2022 10:21 AM EDT Narrative Resulting Agency Comment Spec In Lab Shania Will MD CHEMISTRY ORDERABLE S Performing Organization Address [facility] Co de Phone Number [facility] [place] [address] * (ABNORMAL) Basic Metabolic Panel (non-fasting) (03/06/2022 10:15 AM EDT) Pathologist [facility] [place] Glucose 155 65 - 199 mg/dL [facility] Comment:Diabetes: >=200 mg/d L plus symptoms Blood Urea Nitrogen 29(H) 8 - 18 mg/dL [place] [...] [facility] Carbon Dioxide 23 22 - 31 mmol/L [facility] Anion Gap 10 5 - 15 mmol/L [facility] Calcium 8.9 8.5 - 10.5 mg/dL [facility] Est Glomerular Filtration Rate 45(L) >=60 mL/min/1. 73 m?? [place] [...] [facility] [place] [address] * (ABNORMAL) Differential, Automated (03/06/2022 4:29 AM EDT) Neutrophil % 90.5 % [facility] Neutrophil Absolute 4.47 1.70 - 6.10 x10(3)/mc L [facility] Lymph % 6.9 % [facility] Lymphocytes Abs 0.3(L) 0.9 - 3.2 x10(3)/mc L [facility] Monocyte % 2.2 % [facility] Monocyte Abs 0.1(L) 0.3 - 0.9 x10(3)/mc L [facility] Eos % 0.0 % [facility] Eosinophils Abs 0.0 0.0 - 0.4 x10(3)/mc L [facility] Basophil % 0.2 % [facility] Baso Absolute 0.0 0.0 - 0.1 x10(3)/mc L WH[facility] [...] Absolute 0.01 0.00 - 0.04 x10(3)/ L [facility] Blood 03/06/2022 4:29 AM EDT 03/06/2022 4:49 AM EDT Narrative Resulting Agency Comment Spec In Lab Prakash Mendez MD HEMATOLOGY ORDERABLE S [facility] [place] [address] * (ABNORMAL) Hemogram (03/06/2022 4:29 AM EDT) White Blood Cell 4.9 4.0 - 9.5 x10(3)/ L [facility] Red Blood Cell 3.08(L) 4.00 - 5.21 x10(6)/ L [facility] Hemoglobin 10.5(L) 11.7 - 15.5 g/dL [facility] Hematocrit 31.0(L) 35.7 - 45.8 % [facility] Mean Cell Volume 100.6(H) 82.6 - 94.4 fL [facility] Mean Cell Hemoglobin 34.1(H) 27.1 - 32.0 pg [facility] Mean Cell Hemoglobin Concentration 33.9 31.7 - 35.0 g/dL [facility] Platelet 104(L) 145 - 357 x10(3)/ L [facility] RDW Standard Deviation 47.5(H) 37.0 - 46.0 fL [facility] RDW coefficient of variation 12.9 11.5 - 14.1 % [facility] Mean Platelet Volume 11.8 7.6 - 12.9 fL [facility] NRBC% auto 0.0 % [facility] NRBC Absolute 0.000 0.000 - 0.000 x10(3)/mc L [facility] Blood 03/06/2022 4:29 AM EDT 03/06/2022 4:49 AM EDT Narrative Resulting Agency Comment Spec In Lab Prakash Mendez MD HEMATOLOGY ORDERABLE S [facility] [address] * (ABNORMAL) Basic Metabolic Panel (non-fasting) (03/06/2022 4:29 AM EDT) Glucose 140 65 - 199 mg/dL [facility] Comment:Diabetes: >=200 mg/d L plus symptoms Blood Urea Nitrogen 31(H) 8 - 18 mg/dL [facility] [...] [facility] Carbon Dioxide 23 22 - 31 mmol/L [facility] Anion Gap 10 5 - 15 mmol/L [facility] Calcium 9.0 8.5 - 10.5 mg/dL [facility] Est Glomerular Filtration Rate 42(L) >=60 mL/min/1. 73 m?? [place] [...] [facility] [place] [address] * POCT Glucose (03/05/2022 12:18 PM EDT) Glucose, POC 94 65 - 199 mg/dL [facility] Comment: Supplemental ranges: <140 mg/dL before meals <180 mg/dL all other times of the day Blood 03/05/2022 12:1 8 PM EDT 03/05/2022 12:18 PM EDT Shania Will MD POINT OF CARE TEST ORDERABLES Performing Organization Address City/[facility]/ZIP Co de Phone Number [facility] [place] [address] documented in this encounter Visit Diagnoses Diagnosis [...] Unit) documented in this encounter Care Teams Silviculture Teacher Relationship Specialty Start Date End Date Ana Her MD [address] [place] [address] PCP - General 07/29/13 documented as of this encounter
--- OUTSIDE RECORDS SUMMARY | 2024-05-30 11:16 | XMS_ITS | Clinical Summary ---
Author Organization [facility] [place] [address] Care Team Providers Care Client Care Manager Name Role Phone Ana Her MD Primary Care Provider [phone] Allergies No known active allergies Medications Medication [...] the eliquis and has been managed by [facility]. She has remained in [...] and ECG with Dr. Ana Her in [place] in January She will discuss ECHO results [...] - TT3 and FT4 nl - My ROLLER MILL TENDER colleague called and spoke with covering MD [...] history exists Medical Devices Implanted Type Area Rn Quality Device Identifier Shelf Expiration Date Model / Serial / Lot Breast Clip-02/26/20 17 Implanted: by Enzo Burkett MD (Quantity not on file) Breast Clip Left: Breast Bard - [id number] 05/04/2019 [employer] ULTRACOR BREAST TISSUE MARKER ULTRASOUND ENHANCED BLANCA / / [id number] Description:BLANCA Procedures Procedure Name Priority Date/Time Associated [...] of neck of femur, unspecified laterality terminal makeup operator current use of aromatase inhibitor from Last [...] have questions please contact the health care analyst that requested your imaging first. ? Jeanine Lobato HAZARDOUS MATERIALS DRIVER IMG MAMMO ORD ERABLES * DXA Central [...] BMD measurements and plots are available in [employer] Database under the imaging tab. Paper copies will be sent to providers without E-Envivio access. If you have received this report without the data sheet and do not have access to [email or web address], please contact Radiology Manager Monitoring at [phone] Thursday thru Thursday 8am-4pm. Thank you for letting us participate in the care of this patient. ??If you are a health care provider and have any questions regarding this report, please contact the number below. ??For patients who have questions please contact the health care analyst that requested your imaging first. ? [...] BMD measurements and plots are available in EClickSquaredunder the imaging tab. Paper copies will be sent to providers without E- access.If you have received this report without the data sheet and do not haveaccess to E-, please contact Radiology Manager Monitoring at [phone] Thursday thrriday 8am-4pm. Thank you for letting us participate in the care of this patient. If youare a health care provider and have any questions regarding this report,please contact the number below. For patients who have questions please contactthe health care analyst that requested your imaging first. Ricky [...] Status decision made by: Patient Care Teams Client Care Manager Relationship Specialty Start Date End Date Ana Her MD [facility] [address] [place] [address] PCP - General 07/29/13
--- OUTSIDE RECORDS SUMMARY | 2024-05-30 11:16 | XMS_ITS | Continuity of Care Document ---
Author Organization [facility] [place] [address] Care Team Providers Care [employer] Professor Name Role Phone GABINODC Senior Oracle Adf Developer [facility] Orthopedic Surgeon [facility] Sleep Medicine [facility] Cement Storage Worker Assessment Encounter Date Assessment Date Assessment LastModified by Organization Details LastModified Time 03/04/2024 03/04/2024 The total time devoted to today's encounter, including both the sjtu-ag-gcpy time with the patient and/or family/caregi josefina and bwn-tjiw-yz-f patrick time I personally spent is 44 minutes. Not available 03/04/2024 17:47:18 Plan of Treatment Reminders Order Date Submit Date Provider Last Modified By Organization Details Last Modified Time Details Appointments None recorded. Lab BMP, serum or plasma 2023 024 [facility] (Registration ), [address] [place] [address] [place], [address], 4 11:42:49 vitamin D, 25-hydroxy, total, serum 2023 024 [facility] (Registration ), [address] [place] [address] [place], [address], 4 16:09:19 HbA1c (hemoglobin A1c), blood 2023 024 [facility] (Registration ), [address] [place] [address] [place], [address], 4 11:39:49 TSH, serum, reflex free T4 2023 024 [facility] (Registration ), [address] [place] [address] [place], [address], 4 11:40:25 CBC 2023 [facility] (Registration ), [address] [place] [address] [place], [address], 4 15:08:25 ferritin, serum or plasma 2023 024 [facility] (Registration ), [address] [place] [address] [place], [address], 4 11:41:22 iron + total iron-bindin g capacity (TIBC), serum 2023 [facility] (Registration ), [address] [place] [address] [place], [address], 4 11:43:17 Referral None recorded. Procedures None recorded. Surgeries None recorded. Imaging None recorded. Medication Orders hydromorpho ne 2 mg tablet 2023 [facility], [address] [place], [address], 4 15:12:30 levothyroxi ne 75 mcg tablet 2023 024 [facility], [address] [place], [address], 4 16:32:19 Patient TargetsNo targets recorded. Patient InstructionsNo instructions recorded. 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 None Reported. Problems Name Problem SNOMED Code Status Onset Date Resolution Date Notes Provider Name and Address Organization Details Recorded Time Osteopor otic fracture Active 2023 Zoledron ate started at time of humeral fracture 2023- MD [address], [place], [address] , [facility] 4 17:34:10 Hypothyr oidism 45856896 Active 1959 EVIE VIRAMONTESUE [facility], [facility] 4 10:29:59 [facility] hyperten jason 08671226 Active 1959 EVIE RUFUS shaw, [facility] 4 10:29:36 Hyperlip idemia 76631141 Active 1959 on statin MD [address], [place], [address] , [facility] 4 20:35:18 Spinal stenosis of lumbar region 74017419 Active 2012 s/p lumbar foramino parish L4 MD [address], [place], [address] , [facility] 4 20:36:41 Sleep apnea 49097286 Active 2012 on CPAP MD [address], [place], [address] , [facility] 4 20:39:31 Gastroes ophageal reflux disease without esophagi tis 886938423 Completed 195908/12/2023 Removal Reason: resolved with surgical repair of HH MD [address], [place], [address] , [facility] 4 10:41:24 Family history of malignan t neoplasm of digestiv e organ 782759143 Active [address], [place], [address] , [facility] 4 20:37:03 Paresthe samir 03217141 Completed 201412/01/2014 11/28/19 15 - Comments only - Ana Her MD - check B12 and folate Problem Code: R20.2; Problem Code Type: ICD-10; Not Available [facility] 3 05:53:48 Adult health examinat ion Active [address], [place], [address] , [facility] 4 20:33:34 Pre-surg ruben evaluati on Completed [...] [facility] 3 05:53:48 Localize d edema 962142916 Completed 201501/29/2016 12/13/19 16 - Comments only - Ana Her MD - and some on left as well, will check BMP. 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 Nusrat holtk for removal. Problem Code: L72.3; Problem Code Type: ICD-10; Not Available [facility] 3 05:53:49 Chronic ulcer of foot 159474758 Completed 201601/16/2017 12/18/19 17 - Comments only - Ana Her MD - Due to injury. This does appear to have some granulat ion tissue and to be healing. She is given a prescrip tion for Keflex to take only if erythema seems to be extendin g. Problem Code: L97.509; Problem Code Type: ICD-10; Not Available [facility] 3 05:53:49 Diarrhea 99388677 Completed 201602/10/2017 02/05/20 17 - Comments only - Ana Her MD - Persiste nt over several months, we will collect stool for C. 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 6 mm PT1NO E2P2 poistive , HER2 negative MD [address], [place], [address] , [facility], [facility] 4 20:38:49 Pain in left lower limb 854165500 Active 2016 EVIE shaw, [facility]. 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 2018 Danica shaw, [facility] 4 14:36:02 Tachycar lea 0552202 Completed 201811/25/2018 Problem Code: R00.0; Problem Code Type: ICD-10; Not Available [facility] 3 05:53:51 Pre-surg ruben evaluati on Completed 201811/25/2018 Problem Code: Z01.818; Problem Code Type: ICD-10; Not Available [facility] 3 05:53:51 Iron deficien cy anemia 55192191 Active 2019 elevated MCV: normal B12 2021, normal folate 2018 IV iron 2023 EGD 01/2022 paraesop hageal hernia (since repaired ) colo 03/[address] MD [address], [place], [address] , [facility], [facility]. 4 11:44:45 Lumbago with sciatica 121989193 Completed 201903/16/2020 02/24/20 20 - Comments only - Vy Pinon ASSOCIATE COUNSEL - Likely aggravat ed by increase d [...] [facility] 3 05:53:52 Right side sciatica 80442528939 9101 Active 2019 EVIE HOOPER [facility] 4 10:33:09 Left side sciatica 77688649589 9104 Active [address], [place], [address] , [facility] 4 17:20:20 Diaphrag matic hernia 23690507 Completed 202108/11/2023 Removal Reason: s/p repair MD [address], [place], [address] , [facility] 4 20:50:39 History of SARS-CoV -2 77438191509 3421457 Completed 202104/04/2022 03/21/20 22 - Comments only - Ana Her MD - testing is negative today in the office. Still some fatigue but otherwis e recoveri ng. Did get MAB. Already had covid bivalent booster prior to illness Problem Code: Z86.16; Problem Code Type: ICD-10; Not Available [facility] 3 05:53:53 Diarrhea 30009802 Completed 202104/18/2022 Problem Code: R19.7; Problem Code Type: ICD-10; MD [address], [place], [address] , [facility] 4 21:03:02 Screenin g mammogra phy Completed 202208/11/[address], [place], [address] , [facility] 4 20:36:56 Carpal tunnel syndrome of left wrist 81005008907 9102 Completed 202201/23/2023 Problem Code: G56.02; Problem Code Type: ICD-10; Not Available [facility] 4 05:37:46 Diarrhea 30565715 Active 2022 started colestip ol 01/[address], [place], [address] , [facility] 4 21:03:02 Carpal tunnel syndrome of right wrist 61056600946 9108 Completed 201803/19/2020 Problem Code: G56.01; Problem Code Type: ICD-10; Not Available [facility] 3 05:53:55 Pain of left knee joint 15845594135 4107 Completed 202107/30/2022 Problem Code: M25.562; Problem Code Type: ICD-10; Not Available [facility] 3 05:53:55 Hypersom korina 89723503 Completed 201311/27/2014 Problem Code: 780.54; Problem Code Type: ICD-9; Not Available [facility] 3 05:53:56 Screenin g for disorder Completed 201909/11/2021 Problem Code: Z13.9; Problem Code Type: ICD-10; Not Available [facility] 3 05:53:56 Anemia 936831127 Completed 201903/19/2020 Problem Code: D64.9; Problem Code Type: ICD-10; Not Available [facility] 3 05:53:56 Long-ter m current use of anticoag ulant 695350092 Completed 201709/01/2018 Problem Code: Z79.01; Problem Code Type: ICD-10; Not Available [facility] 3 05:53:57 Chronic rhinitis 22194187 Completed 202108/12/2021 Problem Code: J31.0; Problem Code Type: ICD-10; Not Available [facility] 3 05:53:57 Impaired fasting glycemia 749355595 Completed 201401/28/2023 Not Available [facility] 3 05:53:57 Fatigue 73325719 Completed 201903/19/2020 Problem Code: R53.83; Problem Code Type: ICD-10; Not Available [facility] 3 05:53:58 Upper respirat ory tract infectio n caused by Influenz a A 30867540865 9104 Completed 201707/02/2017 Problem Code: J09.x2; Problem Code Type: ICD-10; Not Available [facility] 3 05:53:59 Diarrhea 74799420 Completed 201709/01/2018 ANA HER MD [facility] [address], [place], [address] , [facility]. 4 21:03:02 Acute upper respirat ory infectio n 49526743 Completed 202108/26/2021 Problem Code: J06.9; Problem Code Type: ICD-10; Not Available [facility] 3 05:53:59 Pain in right foot 99790928432 9107 Completed 202207/30/2022 Problem Code: M79.671; Problem Code Type: ICD-10; Not Available [facility] 3 05:54:00 Breast composit ion 392465214 Completed 201601/28/2023 Not Available [facility] 3 05:54:00 Changes in skin texture 792300791 Completed 202207/30/2022 Problem Code: R23.4; Problem Code Type: ICD-10; Not Available [facility] 3 05:54:01 Spasm 67768355 Completed 201603/23/2017 Problem Code: R25.2; Problem Code Type: ICD-10; EVIE RUFUS shaw, [facility] 4 10:33:28 Hyperten sive disorder 76634524 Completed 11/28/19 15 - Comments only - Ana Her MD - [facility] ed, no change in medicati ons Not Available [facility] 3 05:54:03 Arthralg ia of the ankle and/or foot 871494374 Completed 201501/30/2016 Problem Code: M25.571; Problem Code Type: ICD-10; Not Available [facility] 3 05:54:03 Dyspnea 846226848 Completed 201903/19/2020 Problem Code: R06.02; Problem Code Type: ICD-10; Danica Felix colin, [facility] 4 14:39:47 Trigger finger of right hand 58420765109 659604 Completed 201803/19/2020 Problem Code: M65.341; Problem Code Type: ICD-10; Not Available [facility] 3 05:54:06 Cough 66280283 Completed 202108/12/2021 Problem Code: R05.1; Problem Code Type: ICD-10; Not Available [facility] 3 05:54:06 At risk - finding 196162295 Completed 201811/11/2018 Problem Code: Z91.89; Problem Code Type: ICD-10; Not Available [facility] 3 05:54:06 Cough 53459956 Completed 201706/15/2017 Problem Code: R05; Problem Code Type: ICD-10; Not Available [facility] 3 05:54:07 Preopera tive cardiova scular examinat ion Completed 202112/18/2021 Problem Code: Z01.810; Problem Code Type: ICD-10; Not Available [facility] 3 05:54:08 Arterial bruit 67575352 Completed 202109/11/2021 Not Available [facility] 3 05:54:08 Gastroes ophageal reflux disease 183073259 Completed Not Available [facility] 3 05:54:09 Imaging of musculos keletal system abnormal 417658715 Completed 201603/23/2017 Problem Code: R93.7; Problem Code Type: ICD-10; Not Available [facility] 3 05:54:10 Blood glucose outside referenc e range 574899301 Completed 201503/20/2016 Problem Code: R73.09; Problem Code Type: ICD-10; Not Available [facility] 3 05:54:10 Abdomina l aortic aneurysm 784574385 Completed 195912/04/2014 Not Available [facility] 3 05:54:11 Lung field abnormal 980285515 Completed 202109/11/2021 Problem Code: R91.8; Problem Code Type: ICD-10; Not Available [facility] 3 05:54:11 Ingrowin g nail 830995043 Completed 201503/23/2017 Problem Code: L60.0; Problem Code Type: ICD-10; Not Available [facility] 3 05:54:11 Hypokale karyn 95671873 Completed 201504/17/2016 Problem Code: E87.6; Problem Code Type: ICD-10; Not Available [facility] 3 05:54:12 Spasm 46086074 Completed 202201/23/2023 Problem Code: M62.838; Problem Code Type: ICD-10; EVIE shaw [facility] 4 10:33:28 Aneurysm of ascendin g aorta 853452307 Active [address], [place], [address] , [facility] 4 19:24:51 Bicuspid aortic valve 76205570 Active 2023 severe by ECHO 07/[address], [facility] [address] , [facility] 4 19:33:10 Osteopen ia 762149399 Active 2023 EVIE shaw, [facility] 4 10:28:13 Venous stasis 17330655 Active 2023 EVIE shaw, [facility] 4 10:29:14 Chronic kidney disease 970441464 Active 2017 Stage 3bA1v eGFR 42-[address], [place], [address] , [facility] 4 20:49:29 Dyspnea on exertion 38135631 Active 2018 Danica shaw, [facility] 4 14:39:44 Hiatal hernia 02652273 Completed 202108/11/2023 lap repair MD [address], [place], [address] , [facility] 4 20:51:15 Edema of lower extremit y 538539601 Active [address], [place], [address] , [facility] 4 20:55:49 Atrial fibrilla tion 79104697 Active 2016 s/p pulmonoa ry vein isolatio n 05/2018, chronic anticoag ulation with Xarelto MD [address], [place] [address] 4 09:14:08 Obesity 615250301 Active [address], [address] 4 09:26:22 Cardiac pacemake r in situ 104414087 Active 2023 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 MD [address], [address] 4 09:13:49 Swelling of bilatera l lower limbs 786386761 Active [address], [address] 14:35:13 Problem Notes None recorded. Procedures Surgical History Date Name Laterality Status Provider Name and Address Organization Details Recorded Time 10/26/19 cardiac pacemaker procedure completed MD Young [address], [address] 03/16/2024 16:33:27 10/20/19 transcatheter aortic valve implantation completed MD [address], [address] 03/16/2024 16:32:53 Imaging Results None recorded. Procedure Notes None recorded. Medical Equipment None Reported. Allergies Allergen ID Allergen Name Allergen Category Reaction Reaction Severity Criticality Documentation Date Start Date Code Code System Note Provider Name and Address Organization Details Recorded Time 52215 amlodipin e medicatio n swelling severe high 11/18/2023 76654 RxNorm HIRA Hodge, [facility] 13:47:28 Medications Name Sig Start [...] 1 tab by mouth daily 06/02 completed Hotalotca re Not Available Not Available Not Available [...] 1 tab by mouth daily 2013 active [facility] Not Available Not Available Not Available gabapenti n 100 mg capsule Take 1 cap by mouth three times daily 2015 active Not Available Not Available Not Avai lable metoprolo l succinate ER 25 mg tablet,ex tended release 24 hr Take 1 tab by mouth daily 2017 active [facility] Not Available Not Available Not [...] Updated DateTime 4 164.34 cm 29.1 kg/m2 99796.4 8 g 97.7 [degF] 96 % 96 % 104 /min 18 /min 120 mm[Hg] 74 mm[Hg] KRYSTAL SKELTON LPN [facility] 14:18:40 Social History Question Answer Notes LastModified by Organizat ion Details LastModified Time Tobacco Smoking Status Never Smoker KRYSTAL SKELTON LPN [facility], [facility] 08/12/2023 07:44:55 Date Of Most Recent [...] And Wanted Help? (For Example, If You [place] Very Nervous, Lonely, Or Blue; Got Sick [...] Details Recorded Time Pneumococcal conjugate PCV20, polysaccharide TLS352 conjugate, adjuvant, PF 4 completed MD [address], [address] 08/12/2023 11:52:18 COVID-19, mRNA, LNP-S, PF, vanda-sucrose, 30 mcg/0.3 mL 4 completed MD [address], [address] 08/12/2023 11:52:18 COVID-19, mRNA, LNP-S, PF, vanda-sucrose, 30 mcg/0.3 mL 4 completed MD [address], [address] 03/04/2024 15:04:49 Tdap 1 completed Not Available [facility] 03/13/2023 06:18:37 Tdap 1 completed Not Available [facility] 03/13/2023 06:18:37 zoster live 5 completed Not Available [facility] 03/13/2023 06:18:37 Influenza, high-dose, trivalent, PF 8 completed Not Available [facility] 03/13/2023 06:18:38 Influenza, split virus, trivalent, preservative 6 completed Not Available [facility] 03/13/2023 06:18:38 Pneumococcal Conjugate, unspecified formulation 5 completed Not Available [facility] 03/13/2023 06:18:38 Influenza, split virus, quadrivalent, preservative 7 completed Not Available [facility] 03/13/2023 06:18:38 Influenza, high-dose, quadrivalent, PF [...] SNOMED-CT Code Diagnosis ICD10 Code Diagnosis Note [id number] ANA HER MD [address] [place] [address] 03/04/2024 14:02:04 03/04/2024 15:12:46 Active or passive immunization 255634899 Z23 Hypothyroidism 77779848 E03.9 dose lowered during hospital or rehab stay, will repeat TSH in few months. Osteoporotic fracture 46 151337 M80.00XD received first dose of zoledronic acid [...] to next visit. Iron defic iency anemia 79975058 D50.9 Did receive some IV iron, unclear how many doses. No longer taking oral iron. Had seen [facility] about colonoscop y due to diarrhea, but appears that was postponed due to her aortic stenosis/T AVR... will repeat CBC and iron studies in few months, if falling again will need to consider GI workup for blood loss. Chronic ki dney disease 974765365 N18.9 Prediabetes 396153670 R7 3.03 Health Concerns Section Related Observation LastModified by Organization Detai ls LastModified Time None Recorded Concern Status LastModified by Organization Details LastModified Time None Recorded Payers Encounter Date Sequence Insurance Name Policy Number Policy Palacio Covered Member ID Palacio Member ID Guarantor Name 03/04/2024 1 [place] [employer] Digna Olson [id number] Digna Olson 03/04/2024 2 [place] [facility] [id number] Digna Olson [id number] Digna Lemus Whitney Notes Date Note Type Note Provider Name and Address Organization Details Recorded Time 03/04/2024 text/html Pt was admitted to [facility] 12/10-12/16 with fall and humeral [...] TAVR. ANA HER MD [address], [place], [address], [facility]. 03/04/2024 17:49:41 OBGyn Episode No OBEpisode recorded.
--- OUTSIDE RECORDS SUMMARY | 2024-05-30 11:16 | XMS_ITS | Encounter Summary ---
Author Organization [facility] [place] [address] Care Team Providers Care Prefabricated Houses Trimmer Name Role Phone Ana Her MD Primary Care Provider [phone] Encounter Details Date Type Department Care Team (Latest Contact Info) Description 04/03/2022 12:00 PM EST TH Visit (TeleHealth) [place] [address] Laura Will MD [facility] [place] [address] Status post repair of paraesophageal diaphragmatic hernia [...] status documented in this encounter Care Teams Prefabricated Houses Trimmer Relationship Specialty Start Date End Date Ana Her MD [facility] [address] [place] [address] PCP - General 07/29/13 documented as of this encounter
--- OUTSIDE RECORDS SUMMARY | 2024-05-30 11:16 | XMS_ITS | Encounter Summary ---
Author Organization [facility] [place] [address] Care Team Providers Care Object Oriented Programmer Name Role Phone Ana Her MD Primary Care Provider [phone] Encounter Details Date Type Department Care Team (Latest Contact Info) Description 01/08/2022 6:11 AM EDT - 01/08/2022 9:40 AM EDT Hospital Encounter [place] [id number] Laura Park MD [facility] [place] [address] Discharge Disposition: Home Social History Tobacco Use [...] a nurse in the Thoracic Clinic at [phone]. After hours or on weekends or holidays please call: [phone] and ask to speak to the Thoracic Physician distribution associate. Diet: You should follow a clear liquid [...] - 5pm): General Surgery and Bariatric Surgery [phone] Bariatric Surgeons: Drs. Park and John [phone] Cake Wrapper: [phone] Dietitians: [phone] Outside of regular business hours, including weekends and holidays: Ask for General Surgery resident distribution associate [phone] Please note, this call will be answered [...] of left breast of female, estrogen receptor lsobdeskS15.512, Z17.0 ??? Anemia D64.9 ??? Aortic valve [...] MD at [facility] MAIN OR ?? Cholecystectomy ?? [...] Operative Note Patient Name: Digna Olson : [id number] MR#: [id number] Case Date: 01/08/2022 Surgeon: Surgeon(s) and Role: [...] Info Order Time SPECIMEN TO PATHOLOGY Gastric Bradley for H Pylori Hiatal hernia Gastric Bradley for H Pylori excision 01/08/2022 8:15 AM [...] 8:14 AM EDT Upper GI Endoscopy, Diagnostic ([id number]) Yes 01/08/2022 7:40 AM EDT Hiatal hernia [...] PATHOLOGY/CYTOLOGY ORDERABLES [facility] [place] [address] * Surgical Pathology Report (01/08/2022 8:14 AM EDT) Final Diagnosis [id number] ? Location: [facility]; [facility]; A The signing pathologist has (i) examined the relevant preparation(s) for the specimen(s) and (ii) rendered or confirmed the diagnosis(es). . ?Surgical Pathology DIAGNOSIS A - Gastric ??Antrum for H Pylori, excision: - ??Antrum-type mucosa with reactive gastropathy. Electronically signed by: ?Umang Raymundo MD Verified: ??01/09/2022 16:36 ??Pathologist Performed at: ??-[facility] Dept. of Pathology, [place], [place] SPECIMEN(S) SUBMITTED A - Gastric ??Antrum [...] PATHOLOGY/CYTOLOGY ORDERABLES [facility] [place] [address] * POCT Glucose (01/08/2022 6:33 AM EDT) Glucose, POC 120 65 - 199 mg/dL [facility] Comment: Supplemental ranges: <140 mg/dL before meals <180 mg/dL all other times of the day Blood 01/08/2022 6:33 AM EDT 01/08/2022 6:33 AM EDT Laura Park MD POINT [place] [address] documented in this encounter Visit Diagnoses Not on filedocumented in this encounter Active and Recently Administered Medications Care Teams Object Oriented Programmer Relationship Specialty Start Date End Date Ana Her MD [address] [place] [address] PCP - General 07/29/13 documented as of this encounter
--- OUTSIDE RECORDS SUMMARY | 2024-05-30 11:16 | XMS_ITS | Encounter Summary ---
Author Organization [facility] [place] [address] Care Team Providers Care Golf Ball Winder Name Role Phone Ana Her MD Primary Care Provider [phone] Encounter Details Date Type Department Care Team (Late st Contact Info) Description 03/10/2022 1:35 AM EST Ancillary Procedure Radiology Library at [facility], [place] [address] Ana Her MD [address] [place] [address] [facility] [address] [place], [place] [id number] Social History Tobacco Use Types Packs/Day Years [...] CT Chest (03/10/2022 1:31 AM EST) Narrative [facility] - 03/10/2022 1:31 AM EST This exam is auto-finalizing. It's purpose is for storage only. Ana Her MD IM FILM LIBRARY ORD ERABLES [place], [place] documented in this encounter Visit Diagnoses Not on filedocumented in this encounter Care Teams Golf Ball Winder Relationship Specialty Start Date End Date Ana Her MD [facility] [address] [facility] [address] [place] [address] PCP - General 07/29/13 documented as of this encounter
--- OUTSIDE RECORDS SUMMARY | 2024-05-30 11:16 | XMS_ITS | Encounter Summary ---
[place] [address] Care Team Providers Care Hand Stripper Name Role Phone Ana Her MD Primary Care Provider [phone] Encounter Details Date Type Department Care Team (Late st Contact Info) Description 02/26/2022 Orders Only [place] [address] Alicia Manning RN Social History Tobacco Use [...] filedocumented in this encounter Care Teams Hand Stripper Relationship Specialty Start Date End Date Ana Her MD [address] [place] [address] PCP - General 07/29/13 documented as of this encounter
--- OUTSIDE RECORDS SUMMARY | 2024-05-30 11:16 | XMS_ITS | Encounter Summary ---
Author Organization [facility] [address] Care Team Providers Care Housekeeper/Laundry Assistant Name Role Phone Ana Her MD Primary Care Provider [phone] Reason for Visit * Consultation (Routine) - Closed Specialty Diagnoses / Procedures Referred By Christiano hackett Referred To Contact General Surgery Diagnoses Hiatal hernia Ana Her MD [address] [place] [address] [facility] [address] [place] [address] Referral ID Status Reason Start Date Expiration Date V isits Requested Visits Authorized [id number] Closed Consult, Test & Treat 09/23/2021 09/23/2022 6 6 Encounter Details Date Type Department Care Team (Latest Contact Info) Description 12/05/2021 3:00 PM EDT Office [place] [address] Laura Will MD [facility] [place] [address] Paraesophageal hernia Social History Tobacco [...] of left breast of female, estrogen receptor pkxgdyfsI68.512, Z17.0 ??? Anemia D64.9 ??? Aortic valve [...] at [facility] MAIN OR Cholecystectomy Medications: Current [...] gangrene documented in this encounter Care Teams Housekeeper/Laundry Assistant Relationship Specialty Start Date End Date Ana Her MD [address] [place] [address] PCP - General 07/29/13 documented as of this encounter
--- OUTSIDE RECORDS SUMMARY | 2024-05-30 11:16 | XMS_ITS | Encounter Summary ---
[place] [address] Care Team Providers Care Ballast Cleaning Machine Operator Name Role Phone Ana Her MD Primary Care Provider [phone] Encounter Details Date Type Department Care Team (Late st Contact Info) Description 11/01/2021 Telephone [place] [address] Chelsie Lauren Social History Tobacco Use Types [...] on filedocumented in this encounter Care Teams Ballast Cleaning Machine Operator Relationship Specialty Start Date End Date Ana Her MD [address] [place] [address] PCP - General 07/29/13 documented as of this encounter
--- OUTSIDE RECORDS SUMMARY | 2024-05-30 11:16 | XMS_ITS | Encounter Summary ---
[place] [address] Care Team Providers Care Compliance Lead Name Role Phone Ana Her MD Primary Care Provider [phone] Reason for Visit * Auth/Cert Specialty Diagnoses / Procedures Referred By Christiano hackett Referred To Contact Diagnoses S/P repair of paraesophageal hernia Post-Op monitoring Procedures PRO LAPARSCOPY REPAIR PARAESOPHAGEAL HERNIA INCL FUNDOPLASTY W/O MESH LAPAROSCOPIC PARAESOPHAGEAL HERNIA REPAIR W/FUNDOPLASTY, W/O MESH (WRVU 26.6) MODIFIER TOUPET FUNDOPLASTY Shania Will MD [facility] [place] [address] [facility] Referral ID Status Reason Start Date Expiration Date Visits Re quested Visits Authorized [id number] 1 1 Encounter Details Date Type Department Care Team (Late st Contact Info) Description 03/05/2022 12:54 PM EDT - 03/05/2022 4:55 PM EDT Surgery [place] [phone] Shania Will MD [facility] [place] [address] LAPAROSCOPIC PARAESOPHAGEAL HERNIA REPAIR W/FUNDOPLASTY, W/O MESH [...] of left breast of female, estrogen receptor ycwfuyrxA06.512, Z17.0 ??? Anemia D64.9 ??? Aortic valve [...] Per chart review, her creatinine levels in 4329-1313 ranged from 0.87-1.50 indicative of possible undiagnosed [...] [facility] Arrive at: Doorshaker Area [phone] Instructions Given to Patient at Discharge: Patient [...] hours please call the Surgery Clinic at [phone] before 5 PM on weekdays. For questions after hours and on weekends please call the hospital cmm operator at [phone] and ask for the General Surgery resident career and technology education teacher. They may not be familiar [...] post Sly diet, as instructed by the funeral sales manager in the hospital for a period [...] renal function. Please call the clinic at [phone] to confirm or reschedule. Future Appointments Date [...] [facility] Arrive at: Doorshaker Area 4L [phone] Signed: Shena Harden MD 03/07/22 7:18 AM [facility] Primary Saima Physician: MD Geovany David DR [facility] [address] documented in this encounter Discharge Instructions * [...] hours please call the Surgery Clinic at [phone] before 5 PM on weekdays. For questions after hours and on weekends please call the hospital cmm operator at [phone] and ask for the General Surgery resident career and technology education teacher. They may not be familiar [...] post Sly diet, as instructed by the funeral sales manager in the hospital for a period [...] renal function. Please call the clinic at [phone] to confirm or reschedule. Future Appointments Date [...] Ocampo RN - 03/07/2022 10:25 AM EDT [facility] Short Stay Unit Discharge Note [...] Sly Diet Education to pt Digna Olson. High School Combination Teacher metwith pt at bedside to deliver full [...] she is noticing some overall improvement post op.High School Combination Teacher took note of this and encouraged the [...] ?? She is followed by cardiology at [facility], and is on xarelto. ?? [...] of left breast of female, estrogen receptor bkkjkfqfW54.512, Z17.0 ??? Anemia D64.9 ??? Aortic valve [...] 6.43) performed by Malika Chen MD at [facility] MAIN OR ??? PRO INTRAOP SENTINEL LYMPH ID W/DYE INJECTION Left 03/30/2017 ?? INTRAOPERATIVE ID (MAPPING) SENTINEL LYMPH NODE,INCLUDES INJECTION (WRVU 2.5) performed by Malika Chen MD at [facility] MAIN OR ??? PRO MASTECTOMY PARTIAL Left 03/30/2017 ?? MASTECTOMY PARTIAL (WRVU 10.13) performed by Malika Chen MD at [facility] MAIN OR ?? Cholecystectomy ?? [...] Operative Note Patient Name: Digna Olson : [id number] MR#: [id number] Case Date: 03/05/2022 Surgeon: Surgeon(s) and Role: [...] Operative Note Patient Name: Digna Olson : [id number] MR#: [id number] Case Date: 03/05/2022 Surgeon: Surgeon(s) and Role: [...] Repair Paraesophageal Hernia Incl Fundoplasty W/O Mesh (17949) 03/05/2022 1:58 PM EDT Paraesophageal Hernia POCT [...] [facility] Lymph % 12.1 % [facility] Lymphocytes Abs 0.8(L) 0.9 - 3.2 x10(3)/mc L [facility] Monocyte % 7.6 % [facility] Monocyte Abs 0.5 0.3 - 0.9 x10(3)/mc L [facility] Eos % 0.0 % [facility] Eosinophils Abs 0.0 0.0 - 0.4 x10(3)/[facility] LABORATORY Basophil % 0.0 % [facility] Baso Absolute 0.0 0.0 - 0.1 x10(3)/[facility] LABORATORY Immature Gran % 0.30 % [place] [...] ORDERABLE S [facility] [place] [address] * (ABNORMAL) Hemogram (03/07/2022 5:08 AM EDT) [...] RDW Standard Deviation 47.5(H) 37.0 - 46.0 [facility] RDW coefficient of variation 12.9 11.5 - 14.1 % [facility] Mean Platelet Volume 11.7 7.6 - 12.9 [facility] NRBC% auto 0.0 % [facility] NRBC Absolute 0.000 0.000 - 0.000 x10(3)/mc L [facility] Blood 03/07/2022 5:08 AM EDT 03/07/2022 5:19 AM EDT Narrative Resulting Agency Comment Spec In Lab Nino Levy MD HEMATOLOGY ORDERABLE S Performing Organization Address City/[facility]/[place] [address] * Phosphorus (03/07/2022 5:08 AM EDT) Phosphorus 2.7 2.5 - 4.5 mg/dL [facility] Blood 03/07/2022 5:08 AM EDT 03/07/2022 5:19 AM EDT Narrative Resulting Agency Comment Spec In Lab Shania Will MD CHEMISTRY ORDERABLE S Performing Organization Address City/[facility]/ZIP Co de Phone Number [facility] [place] [address] * Magnesium (03/07/2022 5:08 AM EDT) Magnesium 0.89 0.69 - 1.07 mmol/L [facility] Blood 03/07/2022 5:08 AM EDT 03/07/2022 5:19 AM EDT Narrative Resulting Agency Comment Spec In Lab Shania Will MD CHEMISTRY ORDERABLE S [facility] [place] [address] * (ABNORMAL) Basic Metabolic Panel (non-fasting) (03/07/2022 [...] MD CHEMISTRY ORDERABLE S Performing Organization Address City/[facility]/ZIP Co de Phone Number [facility] [place] [address] * (ABNORMAL) Differential, Automated (03/06/2022 10:15 AM EDT) Neutrophil % 90.7 % [facility] Neutrophil Absolute 5.79 1.70 - 6.10 x10(3)/mc L [facility] Lymph % 5.0 % [facility] Lymphocytes Abs 0.3(L) 0.9 - 3.2 x10(3)/mc L [facility] Monocyte % 3.8 % [facility] Monocyte Abs 0.2(L) 0.3 - 0.9 x10(3)/mc L [facility] Eos % 0.0 % [facility] Eosinophils Abs 0.0 0.0 - 0.4 x10(3)/[facility] LABORATORY Basophil % 0.0 % [facility] Baso Absolute 0.0 [...] MUELLER HEMATOLOGY ORDERABL ES Performing Organization Address City/[facility]/ZIP Co de Phone Number [facility] [place] [address] * (ABNORMAL) Hemogram (03/06/2022 10:15 AM EDT) [...] CENTER LABORATORY Platelet 111(L) 145 - 357 x10(3)/[facility] LAB[facility] RDW Standard Deviation 47.2(H) 37.0 - 46.0 [facility] RDW coefficient of variation 12.9 11.5 - 14.1 % [facility] Mean Platelet Volume 11.5 7.6 - 12.9 [facility] NRBC% auto 0.0 % [facility] NRBC Absolute 0.000 0.000 - 0.000 x10(3)/ L [facility] Blood 03/06/2022 10:1 5 AM EDT 03/06/2022 10:21 AM EDT Narrative Resulting Agency Comment Spec In Lab Maryam MUELLER HEMATOLOGY ORDERABL ES [facility] [place] [address] * Phosphorus (03/06/2022 10:15 AM EDT) Phosphorus 3.3 2.5 - 4.5 mg/dL [facility] Blood 03/06/2022 10:1 5 AM EDT 03/06/2022 10:21 AM EDT Narrative Resulting Agency Comment Spec In Lab Shania Will MD CHEMISTRY ORDERABLE S [facility] [place] [address] * Magnesium (03/06/2022 10:15 AM EDT) Magnesium 0.69 0.69 - 1.07 mmol/L [facility] Blood 03/06/2022 10:1 5 AM EDT 03/06/2022 10:21 AM EDT Narrative Resulting Agency Comment Spec In Lab Shania Will MD CHEMISTRY ORDERABLE S Performing Organization Address City/[facility]/ZIP Co de Phone Number [facility] [place] [address] * (ABNORMAL) Basic Metabolic Panel (non-fasting) (03/06/2022 [...] MD CHEMISTRY ORDERABLE S Performing Organization Address City/State/[place] Co de Phone Number [facility] [place] [address] * (ABNORMAL) Differential, Automated (03/06/2022 4:29 AM EDT) Neutrophil % 90.5 % [facility] Neutrophil Absolute 4.47 1.70 - 6.10 x10(3)/mc L [facility] Lymph % 6.9 % [facility] Lymphocytes Abs 0.3(L) 0.9 - 3.2 x10(3)/mc L [facility] Monocyte % 2.2 % [facility] Monocyte Abs 0.1(L) 0.3 - 0.9 x10(3)/mc L [facility] Eos % 0.0 % [facility] Eosinophils Abs 0.0 0.0 - 0.4 x10(3)/mc L [facility] Basophil % 0.2 % [facility] Baso Absolute 0.0 [...] Immature Gran Absolute 0.01 0.00 - 0.04 x10(3)/[facility] Blood 03/06/2022 4:29 AM EDT 03/06/2022 4:49 AM EDT Narrative Resulting Agency Comment Spec In Lab Prakash Mendez MD HEMATOLOGY ORDERABLE S [facility] [place] [address] * (ABNORMAL) Hemogram (03/06/2022 4:29 AM EDT) White Blood Cell 4.9 4.0 - 9.5 x10(3)/[facility] LAB[facility] Red Blood Cell 3.08(L) 4.00 - 5.21 x10(6)/[facility] LABOR[facility] Hemoglobin 10.5(L) 11.7 - 15.5 g/dL [...] CENTER LABORATORY Platelet 104(L) 145 - 357 x10(3)/[facility] LAB[facility] RDW Standard Deviation 47.5(H) 37.0 - 46.0 fL [facility] RDW coefficient of variation 12.9 11.5 - 14.1 % [facility] Mean Platelet Volume 11.8 7.6 - 12.9 fL [facility] NRBC% auto 0.0 % [facility] NRBC Absolute 0.000 0.000 - 0.000 x10(3)/mc L [facility] Blood 03/06/2022 4:29 AM EDT 03/06/2022 4:49 AM EDT Narrative Resulting Agency Comment Spec In Lab Prakash Mendez MD HEMATOLOGY ORDERABLE S [facility] [place] [address] * (ABNORMAL) Basic Metabolic Panel (non-fasting) (03/06/2022 [...] MD CHEMISTRY ORDERABLE S Performing Organization Address City/[facility]/ZIP Co de Phone Number [facility] [place] [address] * POCT Glucose (03/05/2022 12:18 PM EDT) Glucose, POC 94 65 - 199 mg/dL [facility] Comment: Supplemental ranges: <140 mg/dL before meals <180 mg/dL all other times of the day Blood 03/05/2022 12:1 8 PM EDT 03/05/2022 12:18 PM EDT Shania Will MD POINT OF CARE TEST ORDERABLES Performing Organization Address City/[facility]/ZIP Co de Phone Number [facility] [place] [address] documented in this encounter Visit Diagnoses Not [...] Unit) documented in this encounter Care Teams Compliance Lead Relationship Specialty Start Date End Date Ana Her MD [address] [facility] 1 [place] [address] PCP - General 07/29/13 documented as of this encounter
--- OUTSIDE RECORDS SUMMARY | 2024-05-30 11:16 | XMS_ITS | Encounter Summary ---
[place] [address] Care Team Providers Care Insurance Application Investigator Name Role Phone Ana Her MD Primary Care Provider [phone] Encounter Details Date Type Department Care Team (Late st Contact Info) Description 12/24/2021 Telephone [place] [phone] Chelsie Lauren Social History Tobacco Use Types [...] filedocumented in this encounter Care Teams Insurance Application Investigator Relationship Specialty Start Date End Date Ana Her MD [address] [place] [address] PCP - General 07/29/13 documented as of this encounter
--- OUTSIDE RECORDS SUMMARY | 2024-05-30 11:16 | XMS_ITS | Encounter Summary ---
Author Organization [place] [address] Care Team Providers Care Instrumentation Fitter Name Role Phone Ana Her MD Primary Care Provider [phone] Encounter Details Date Type Department Care Team (Late st Contact Info) Description 01/08/2022 7:42 AM EDT Anesthesia [place] [address] Alisa Naqvi MD [facility] DR [place] [address] Anesthesia Record Procedure Summary Procedure Name Responsible [...] cephalic vein (lateral side of arm), left; poop-dne-dsfktf catheter system; Anatomical Landmarks; 20 gauge; Joslyn [...] Procedure Summary Date: 01/08/22 Room / Location: [facility] OR [address] [place] [address] MAIN OR Anesthesia Start: 741 Anesthesia Stop: 825 Procedure: EGD, UPPER GI ENDOSCOPY (N/A Trunk) Diagnosis: (Hiatal hernia) Surgeons: Laura Will MD Responsible Provider: Alisa Naqvi MD Anesthesia Type: general ASA Status: 3 All Anesthesia Providers: Anesthesiologist: Alisa Naqvi MD Veterinary Radiologist: Nghia Valerio MD Vitals Value Taken Time BP 98/56 01/08/22 0823 Temp Pulse Resp SpO2 99 % 01/08/22826 Pain Level Vitals shown include unvalidated device data. Patient Location: PACU/[facility] Level of Consciousness: Conscious but Sleepy [...] of left breast of female, estrogen receptor axdraivq17/25/2017 ??? Bicuspid aortic valve 06/10/2016 ??? Dyspnea [...] mg documented in this encounter Care Teams Instrumentation Fitter Relationship Specialty Start Date End Date Ana Her MD [facility] [address] [facility] [address] [place] [address] PCP - General 07/29/13 documented as of this encounter
--- OUTSIDE RECORDS SUMMARY | 2024-05-30 11:17 | XMS_ITS | Encounter Summary ---
[place] [address] Care Team Providers Care Special Order Jeweler Name Role Phone Ana Her MD Primary Care Provider [phone] 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 * Diagnostic Test (Routine) - Closed Specialty Diagnoses / Procedures Referred By Christiano hackett Referred To Contact Radiology Diagnoses Malignant neoplasm of lower-outer quadrant of left breast of female, estrogen receptor positive Osteopenia of neck of femur, unspecified laterality long term care pharmacist current use of aromatase inhibitor Procedures DXA Central-Spine, Hip, And/Or Whole Body (Generic) Ricky Lowry MD [facility] DR HEMATOLOGY/[place] [address] [facility] Rad Xray [address] [place] [address] [place] [address] Referral ID Status Reason Start Date Expiration Date V isits Requested Visits Authorized [id number] Closed Specialty Service Requested 05/10/2018 05/10/2019 1 1 Reason for Visit * Reason Comments Follow-up Encounter Details Date Type Department Care Team (Late st Contact Info) Description 05/10/2018 2:45 PM EST Office Visit Hematology and Oncology at [facility] [place] [address] Ricky Lowry MD Malignant neoplasm of lower-outer quadrant of left breast of female, estrogen receptor positive; Osteopenia of neck of femur, unspecified laterality; shelter current use of aromatase inhibitor Social History [...] ??Excision with image-guided localization ?Lymph Node Sampling: ??[place] lymph node(s) ?Specimen Laterality: ??Left Tumor [...] ??DCIS not present in specimen Lymph Nodes ?[place] Lymph Nodes: [place] lymph node biopsy performed ?Number of [place] Nodes Examined: ??3 ?Number of Lymph [...] Cardiology at [facility]. Most recent DEXA scan was last year at [facility]. There is no history of thromboembolic [...] is planned for later this week (at [facility]). No new problems with VELEZ, diplopia, cough, [...] chemotherapy. TACHO. Renewal of anastrazole sent. Given [facility] brochure to share with cousins. [...] BMD measurements and plots are available in [employer] under the imaging tab. Paper copies will be sent to providers without [employer] access. If you have received this report without the data sheet and do not have access to [employer], please contact Radiology Beach Attendant at [phone] Thursday thru Thursday 8am-4pm. Thank you for [...] BMD measurements and plots are available in [employer] the imaging tab. Paper copies will be sent to providers without [employer] access.If you have received this report without the data sheet and do not haveaccess to [employer], please contact Radiology Beach Attendant at [phone] Thursday thruFriday 8am-4pm. Thank you for letting us participate in the care of this patient. Forquestions regarding this report, please contact the number below. Electronically signed by: Khushi Hughes [facility] ([phone]),at 11/10/2018 10:55 AM Ricky Lowry MD IMG [...] inhibitors documented in this encounter Care Teams Special Order Jeweler Relationship Specialty Start Date End Date Ana Her MD [address] [place] [address] PCP - General 07/29/13 documented as of this encounter
--- OUTSIDE RECORDS SUMMARY | 2024-05-30 11:17 | XMS_ITS | Encounter Summary ---
[place] [address] Care Team Providers Care Product Safety Coordinator Name Role Phone Ana Her MD Primary Care Provider [phone] Encounter Details Date Type Department Care Team (Late st Contact Info) Description 05/19/2017 Telephone [place] [phone] Sandy Chapman Social History Tobacco Use Types [...] filedocumented in this encounter Care Teams Product Safety Coordinator Relationship Specialty Start Date End Date Ana Her MD [address] [place] [address] PCP - General 07/29/13 documented as of this encounter
--- OUTSIDE RECORDS SUMMARY | 2024-05-30 11:17 | XMS_ITS | Encounter Summary ---
[place] [address] Care Team Providers Care Choir Director Name Role Phone Ana Her MD Primary Care Provider [phone] 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 * Consultation (Routine) - Closed Specialty Diagnoses / Procedures Referred By Christiano hackett Referred To Contact Plastic Surgery Diagnoses Malignant neoplasm of lower-outer quadrant of left breast of female, estrogen receptor positive Macromastia Jeanine Lobato APRN [facility] [place] [address] [facility] [address] [address] Referral ID Status Reason Start Date Expiration Date V isits Requested Visits Authorized [id number] Closed Consult, Test & Treat 06/11/2021 06/11/2022 1 1 Encounter Details Date Type Department Care Team (Late st Contact Info) Description 06/11/2021 10:00 AM EST Office [place] [address] Jeanine Lobato APRN [facility] [place] [address] Encounter for follow-up surveillance of [...] this encounter Progress Notes * Jeanine Lobato, SLITTER PROCESSED FILM - 06/11/2021 10:00 AM EST Images from [...] was obtained which revealed IDC which is ER/FL positive, Her2 negative. Alma Delia opted against [...] mm Grade Intermediate Margins Negative ER Positive FL Positive HER-2 Negative OncotypeDx Recurrence Score N/A [...] Family history of ovarian cancer No Ashkenazi Cheondoism heritage No Known genetic mutation Not tested [...] to speak almost daily. He lives in [place] and is beginning to show early signs [...] situation. Results: Imaging performed (bilateral mammogram) at [facility] today shows no evidence of malignancy, BIRADS [...] free apps for your cell phone from [employer] ([employer]) and [employer] ([employer]). All questions were answered to the patient's satisfaction and they state understanding and agreement with today's treatment plan. They are encouraged to follow up sooner if they develop any new or concerning symptoms. Jeanine Lobato APRN Surgical Oncology P [phone] F [phone] [facility] documented in this encounter Plan of [...] breast documented in this encounter Care Teams Choir Director Relationship Specialty Start Date End Date Ana Her MD [address] [place] [address] PCP - General 07/29/13 documented as of this encounter
--- OUTSIDE RECORDS SUMMARY | 2024-05-30 11:17 | XMS_ITS | Encounter Summary ---
[place] [address] Care Team Providers Care Plant Guard Name Role Phone Ana Her MD Primary Care Provider [phone] Encounter Details Date Type Department Care Team (Late st Contact Info) Description 05/10/2018 2:15 PM EST Office Visit [place] [address] Hiral Padgett, WENDY History of breast cancer [...] with image-guided localization ?Lymph Node Sampling: ?? [place] lymph node(s) ?Specimen Laterality: ?? Left Tumor [...] ?DCIS not present in specimen Lymph Nodes ?[place] Lymph Nodes: ?? [place] lymph node biopsy performed ?Number of [place] Nodes Examined: ?3 ?Number of Lymph Node(s) [...] mammogram today is cat 2. Leaving for [place] later today for a cardiac ablation/a fib at [facility]. Objective: Physical Exam Constitutional: She is oriented [...] breast documented in this encounter Care Teams Plant Guard Relationship Specialty Start Date End Date Ana Her MD [address] [place] [address] PCP - General 07/29/13 documented as of this encounter
--- OUTSIDE RECORDS SUMMARY | 2024-05-30 11:17 | XMS_ITS | Encounter Summary ---
Author Organization [facility] [place] [address] Care Team Providers Care Termite Technician Name Role Phone Ana Her MD Primary Care Provider [phone] Reason for Visit * Reason Comments Follow-up Encounter Details Date Type Department Care Team (Late st Contact Info) Description 10/23/2017 11:00 AM EDT Office Visit Hematology [place] [address] Mayra Page APRN [facility] [place] [address] Malignant neoplasm of lower-outer quadrant of left [...] this encounter Progress Notes * Mayra Page, SPECIALIST ICU - 10/23/2017 11:00 AM EDT Digna Olson [...] ??Excision with image-guided localization ?Lymph Node Sampling: ??[place] lymph node(s) ?Specimen Laterality: ??Left Tumor ?Histologic [...] ??DCIS not present in specimen Lymph Nodes ?[place] Lymph Nodes: [place] lymph node biopsy performed ?Number of [place] Nodes Examined: ??3 ?Number of Lymph Node(s) Examined (sentinel and nonsentinel): 3 ?Lymph Node Involvement: None identified Stage (pTNM) ?Pathological Stage: ?? pT1b pN0 PMH: Past Medical History: Diagnosis Date ??? Breast cancer ??? Fracture of tibia 12/2016 left tibial plateau ??? GERD (gastroesophageal reflux disease) ??? H/O non-insulin dependent diabetes mellitus ??? Spinal stenosis Most recent DEXA scan was 10/28/16 at [facility]. There is no history of thromboembolic events. [...] positive documented in this encounter Care Teams Termite Technician Relationship Specialty Start Date End Date Ana Her MD [address] [place] [address] PCP - General 07/29/13 documented as of this encounter
--- OUTSIDE RECORDS SUMMARY | 2024-05-30 11:17 | XMS_ITS | Encounter Summary ---
[place] [address] Care Team Providers Care Motor And Generator Brush Cutter Name Role Phone Ana Her MD Primary Care Provider [phone] Encounter Details Date Type Department Care Team (Late st Contact Info) Description 06/12/2021 Telephone [place] [phone] Chelsie Lauren Social History Tobacco Use Types [...] on filedocumented in this encounter Care Teams Motor And Generator Brush Cutter Relationship Specialty Start Date End Date Ana Her MD [address] [place] [address] PCP - General 07/29/13 documented as of this encounter
--- OUTSIDE RECORDS SUMMARY | 2024-05-30 11:17 | XMS_ITS | Encounter Summary ---
Author Organization [facility] [address] Care Team Providers Care Caramel Candy Maker Helper Name Role Phone Ana Her MD Primary Care Provider [phone] Reason for Visit * Reason Comments Advice Only BBR * Consultation (Routine) - Closed Specialty Diagnoses / Procedures Referred By Christiano hackett Referred To Contact Plastic Surgery Diagnoses Malignant neoplasm of lower-outer quadrant of left breast of female, estrogen receptor positive Macromastia Jeanine Lobato APRN [facility] [place] [address] [facility] [address] [place] [address] Referral ID Status Reason Start Date Expiration Date V isits Requested Visits Authorized [id number] Closed Consult, Test & Treat 06/11/2021 06/11/2022 1 1 Encounter Details Date Type Department Care Team (Late st Contact Info) Description 07/09/2021 8:30 AM EST Office [place] [address] Med Hudson MD [facility] [place] [address] Macromastia Social History Tobacco Use [...] physical with your primary care doctor and Nitrating Acid Mixer clearance Two Weeks prior to Surgery Do [...] Day of Surgery You will need a tanker driver. If you do not have a tanker driver, your surgery will be canceled. DO [...] pm) For an appointment or insurance questions [phone] For questions pertaining to your surgical date [phone] For nursing related questions [phone] On weekends, holidays or after office hours: Call [phone] and ask the bow making machine operator to page the Plastic Surgery Resident induction coordination power engineer. documented in this encounter Progress Notes * [...] None of the time Conservative Therapy Treatments: [facility] PLASTICS CONSERVATIVE THERAPY TREATMENTS 07/09/2021 Physical [...] 6.43) performed by Malika Chen MD at [facility] MAIN OR ??? PRO INTRAOP SENTINEL LYMPH ID W/DYE INJECTION Left 03/30/2017 INTRAOPERATIVE ID (MAPPING) SENTINEL LYMPH NODE,INCLUDES INJECTION (WRVU 2.5) performed by Malika Chen MD at [facility] MAIN OR ??? PRO MASTECTOMY PARTIAL Left 03/30/2017 MASTECTOMY PARTIAL (WRVU 10.13) performed by Malika Chen MD at [facility] MAIN OR Family History Problem Relation [...] surgery is best done at a realistic jail stable weight. We talked about the outpatient [...] revisions for scarring or asymmetry.) Garcia or Center Pattern Incision: More scarring on breast, but [...] Timeframe: Elective Procedure: Bilateral breast reduction CPT: 11471 Surgical Technique: Garcia, Pedicle Surgical site: Breasts Side: Bilateral Anesthesia: General Follow up: 1 day for drain removal; 7-10 days for HCK PAT: H+P PCP, Cardiac clearance. Need to discontinue blood thinners pre-op? Xarelto documented in this encounter Plan of Treatment Not on file documented as of this encounter Visit Diagnoses Diagnosis Macromastia Hypertrophy of breast documented in this encounter Care Teams Caramel Candy Maker Helper Relationship Specialty Start Date End Date Ana Her MD [address] [place] [address] PCP - General 07/29/13 documented as of this encounter
--- OUTSIDE RECORDS SUMMARY | 2024-05-30 11:17 | XMS_ITS | Encounter Summary ---
[place] [address] Care Team Providers Care Linux Consultant Name Role Phone Ana Her MD Primary Care Provider [phone] Reason for Visit * Reason Comments Follow-up Encounter Details Date Type Department Care Team (Late st Contact Info) Description 11/29/2019 2:45 PM EDT Office Visit Hematology [place] [phone] Ricky Lowry MD Malignant neoplasm of lower-outer [...] ??Excision with image-guided localization ?Lymph Node Sampling: ??[place] lymph node(s) ?Specimen Laterality: ??Left Tumor ?Histologic [...] ??DCIS not present in specimen Lymph Nodes ?[place] Lymph Nodes: [place] lymph node biopsy performed ?Number of [place] Nodes Examined: ??3 ?Number of Lymph Node(s) [...] positive documented in this encounter Care Teams Linux Consultant Relationship Specialty Start Date End Date Ana Her MD [address] [place] [address] PCP - General 07/29/13 documented as of this encounter
--- OUTSIDE RECORDS SUMMARY | 2024-05-30 11:17 | XMS_ITS | Encounter Summary ---
[place] [address] Care Team Providers Care Gas Plumbing Inspector Name Role Phone Ana Her MD Primary Care Provider [phone] Reason for Visit * Reason Comments Follow-up Encounter Details Date Type Department Care Team (Late st Contact Info) Description 06/11/2021 11:00 AM EST Office Visit Hematology [place] [phone] Laura Joaquin PA Malignant neoplasm of lower-outer quadrant of left breast of female, estrogen receptor positive; intermediate frame tender current use of aromatase inhibitor Social History [...] ??Excision with image-guided localization ?Lymph Node Sampling: ??[place] lymph node(s) ?Specimen Laterality: ??Left Tumor ?Histologic [...] ??DCIS not present in specimen Lymph Nodes ?[place] Lymph Nodes: [place] lymph node biopsy performed ?Number of [place] Nodes Examined: ??3 ?Number of Lymph Node(s) [...] on RA Breasts: deferred (examined by surgery SPRINKLER INSTALLER today) Neuro: grossly nonfocal. Results: Last DXA [...] Medical Oncology - Breast & GI Cancers [facility] Pager - [phone] No future appointments. documented in this encounter Plan of Treatment Not on file documented as of this encounter Visit Diagnoses Diagnosis Malignant neoplasm of lower-outer quadrant of left breast of female, estrogen receptor positive detention current use of aromatase inhibitor Use of aromatase inhibitors documented in this encounter Care Teams Gas Plumbing Inspector Relationship Specialty Start Date End Date Ana Her MD [address] [place] [address] PCP - General 07/29/13 documented as of this encounter
--- OUTSIDE RECORDS SUMMARY | 2024-05-30 11:17 | XMS_ITS | Encounter Summary ---
[place] [address] Care Team Providers Care Cook Chill Technician Name Role Phone Ana Her MD Primary Care Provider [phone] 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 * Consultation (Routine) - Closed Specialty Diagnoses / Procedures Referred By Christiano hackett Referred To Contact General Surgery Diagnoses Hiatal hernia Ana Her MD [address] [place] [address] [facility] Gen Surgery [address] [place] [phone] Referral ID Status Reason Start Date Expiration Date V isits Requested Visits Authorized [id number] Closed Consult, Test & Treat 09/23/2021 09/23/2022 6 6 Encounter Details Date Type Department Care Team (Late st Contact Info) Description 09/23/2021 Transcribe Orders eDH Incoming Referrals [phone] Ana Her MD [address] [place] [address] Hiatal hernia Social History Tobacco [...] gangrene documented in this encounter Care Teams Cook Chill Technician Relationship Specialty Start Date End Date Ana Her MD [address] [place] [address] PCP - General 07/29/13 documented as of this encounter
--- OUTSIDE RECORDS SUMMARY | 2024-05-30 11:17 | XMS_ITS | Encounter Summary ---
Author Organization [facility] [place] [place] [address] Care Team Providers Care Abstractor Name Role Phone Ana Her MD Primary Care Provider [phone] Reason for Visit * Reason Comments Radiation Consult * Consultation (Routine) - Closed Specialty Diagnoses / Procedures Referred By Christiano hackett Referred To Contact Radiation Oncology Diagnoses Breast cancer Malika Chen MD [facility] [place] [place] [address] Stj Rad Onc Office [address] [place] [phone] Referral ID Status Reason Start Date Expiration Date Visits Re quested Visits Authorized [id number] Closed 03/17/2017 03/17/2018 1 1 Encounter Details Date Type Department Care Team (Late st Contact Info) Description 04/13/2017 10:00 AM EST Office Visit Radiation Oncology at [address] [address] Faye Velez MD [facility] [place] [address] Malignant neoplasm of left female breast, unspecified [...] cm from nipple. Path: Invasive mucinous ca, ER+OK+, Her2 FISH neg. 03/03/[address] [...] being evaluated for [place] [facility]; has been wearing a ziopatch [...] 6.43) [facility] ??? PRO INTRAOP SENTINEL LYMPH ID W/DYE INJECTION Left 03/30/2017 INTRAOPERATIVE ID (MAPPING) SENTINEL LYMPH NODE,INCLUDES INJECTION (WRVU 2.5) performed by [facility] ??? PRO MASTECTOMY, PARTIAL Left 03/30/2017 MASTECTOMY PARTIAL (WRVU 10.13) performed by [facility] at [facility] Your Medications These [...] A: Breast ca, L, mucinous, gr 2, ER+OK+, Her2 neg, s/p lumpectomy & SNB, pT1b [...] breast documented in this encounter Care Teams Abstractor Relationship Specialty Start Date End Date Ana Her MD [address] [place] [address] PCP - General 07/29/13 documented as of this encounter
--- OUTSIDE RECORDS SUMMARY | 2024-05-30 11:17 | XMS_ITS | Encounter Summary ---
Author Organization [place] [address] Care Team Providers Care Supercharger Mechanic Name Role Phone Ana Her MD Primary Care Provider [phone] Encounter Details Date Type Department Care Team (Late st Contact Info) Description 10/23/2017 9:43 AM EDT - 10/23/2017 11:59 PM EDT Hospital [place] [phone] Hiral Padgett, WENDY History of breast cancer [...] breast documented in this encounter Care Teams Supercharger Mechanic Relationship Specialty Start Date End Date Ana Her MD [address] [place] [address] PCP - General 07/29/13 documented as of this encounter
--- OUTSIDE RECORDS SUMMARY | 2024-05-30 11:17 | XMS_ITS | Encounter Summary ---
Author Organization [facility] [place] [address] Care Team Providers Care Textile Machine Mechanic Name Role Phone Ana Her MD Primary Care Provider [phone] Reason for Visit * Reason Comments Follow Up Surgery Encounter Details Date Type Department Care Team (Late st Contact Info) Description 07/13/2017 1:30 PM EDT Office [place] [phone] Hiral Padgett, WENDY History of breast cancer [...] with image-guided localization ?Lymph Node Sampling: ?? [place] lymph node(s) ?Specimen Laterality: ?? Left Tumor [...] ?DCIS not present in specimen Lymph Nodes ?[place] Lymph Nodes: ?? [place] lymph node biopsy performed ?Number of [place] Nodes Examined: ?3 ?Number of Lymph Node(s) [...] breast documented in this encounter Care Teams Textile Machine Mechanic Relationship Specialty Start Date End Date Ana Her MD [facility] [address] [place] [address] PCP - General 07/29/13 documented as of this encounter
--- OUTSIDE RECORDS SUMMARY | 2024-05-30 11:17 | XMS_ITS | Encounter Summary ---
[place] [address] Care Team Providers Care Welder Setter Electron Beam Machine Name Role Phone Ana Her MD Primary Care Provider [phone] Reason for Visit * Reason Comments Follow-up Encounter Details Date Type Department Care Team (Late st Contact Info) Description 11/15/2020 4:00 PM EDT Office Visit Hematology [place] [phone] Laura Joaquin PA Malignant neoplasm of lower-outer [...] ??Excision with image-guided localization ?Lymph Node Sampling: ??[place] lymph node(s) ?Specimen Laterality: ??Left Tumor ?Histologic [...] ??DCIS not present in specimen Lymph Nodes ?[place] Lymph Nodes: [place] lymph node biopsy performed ?Number of [place] Nodes Examined: ??3 ?Number of Lymph Node(s) [...] [facility] Pager - [phone] documented in this encounter Plan of Treatment Not on file documented as of this encounter Visit Diagnoses Diagnosis Malignant neoplasm of lower-outer quadrant of left breast of female, estrogen receptor positive documented in this encounter Care Teams Welder Setter Electron Beam Machine Relationship Specialty Start Date End Date Ana Her MD [address] [place] [address] PCP - General 07/29/13 documented as of this encounter
--- OUTSIDE RECORDS SUMMARY | 2024-05-30 11:17 | XMS_ITS | Encounter Summary ---
Author Organization [facility] [place] [address] Care Team Providers Care Stable Attendant Name Role Phone Ana Her MD Primary Care Provider [phone] Encounter Details Date Type Department Care Team (Latest Contact Info) Description 03/30/2017 8:30 AM [facility] Hospital Encounter [place] [address] Malika Chen MD [facility] [place] [address] Malignant neoplasm of upper-outer quadrant of left [...] documented in this encounter Results * Mammo [place] Node Injection (03/30/2017 9:01 AM EST) Anatomical [...] mCi documented in this encounter Care Teams Stable Attendant Relationship Specialty Start Date End Date Ana Her MD [address] [place] [address] PCP - General 07/29/13 documented as of this encounter
--- OUTSIDE RECORDS SUMMARY | 2024-05-30 11:17 | XMS_ITS | Encounter Summary ---
Author Organization [facility] [place] [address] Care Team Providers Care Lighter Captain Name Role Phone nAa Her MD Primary Care Provider [phone] Encounter Details Date Type Department Care Team (Latest Contact Info) Description 03/30/2017 8:30 AM [facility] Hospital [place] [address] Malika Chen MD [facility] [address] Malignant neoplasm of upper-outer quadrant of left [...] positive documented in this encounter Care Teams Lighter Captain Relationship Specialty Start Date End Date Ana Her MD [address] [place] [address] PCP - General 07/29/13 documented as of this encounter
--- OUTSIDE RECORDS SUMMARY | 2024-05-30 11:17 | XMS_ITS | Encounter Summary ---
Author Organization [facility] [place] [address] Care Team Providers Care Front End Engineer Name Role Phone Ana Her MD Primary Care Provider Encounter Details Date Type Department Care Team (Late st Contact Info) Description 05/10/2018 1:10 PM EST - 05/10/2018 11:59 PM EST Hospital Encounter Mammography/[place] [phone] Hiral Padgett, WENDY Encounter for screening mammogram [...] cancer documented in this encounter Care Teams Front End Engineer Relationship Specialty Start Date End Date Ana Her MD [address] [place] [address] PCP - General 07/29/13 documented as of this encounter
--- OUTSIDE RECORDS SUMMARY | 2024-05-30 11:17 | XMS_ITS | Encounter Summary ---
Author Organization [place] [address] Care Team Providers Care Security System Installer Name Role Phone Ana Her MD Primary Care Provider [phone] Encounter Details Date Type Department Care Team (Late st Contact Info) Description 03/30/2017 9:30 AM EST - 03/30/2017 11:28 AM EST Surgery [place] [phone] Brant Chen MD [facility] [place] [address] MASTECTOMY PARTIAL (WRVU 10.13) Social History Tobacco [...] shower 24 hours Activity as tolerated Call [phone] with any questions Do not soak incision [...] Alma Delia had a bone scan in [place] which was read as possible metastasis in the left tibia. Of note- she fractured this area recently. She has recovered well. ?? PMH HNT NIDDM not on meds Spinal stenosis Fractured left tibial plateau [place], 2017 GERD ?? FH: Maternal first cousin with breast cancer Brother with rectal cancer Sister with PE ? SH: lives alone. Has good support from sisters who live in [place]. Non smoker. Has a son who lives [...] Operative Note Patient Name: Digna Olson : [id number] MR#: [id number] Case Date: 03/30/2017 Surgeon: Surgeon(s) and Role: [...] [place] [address]. Remaining count within the axilla was 1982. [...] MD PATHOLOGY/CYTOLOGY ORDERABLES [facility] [place] [address] * Specimen to Pathology (surgical or derm) (03/30/2017 12:08 PM EST) AP Specimen 03/30/2017 12:0 8 PM EST 03/30/2017 12:08 PM EST Narrative [facility] - 03/30/2017 12:08 PM EST Specimen requisition ordered. ??Separate Pathology report to follow Brant Chen MD PATHOLOGY/CYTOLOGY ORDERABLES Performing Organization Address [facility] Co de Phone Number [facility] [place] [address] * Specimen to Pathology (surgical or derm) (03/30/2017 12:00 PM EST) AP Specimen 03/30/2017 12:0 0 PM EST 03/30/2017 12:00 PM EST Narrative [facility] - 03/30/2017 12:00 PM EST Specimen requisition ordered. ??Separate Pathology report to follow Brant Chen MD PATHOLOGY/CYTOLOGY ORDERABLES Performing Organization Address [facility] [place] [address] * Specimen to Pathology (surgical or derm) (03/30/2017 11:51 AM EST) AP Specimen 03/30/2017 11:5 1 AM EST 03/30/2017 11:51 AM EST Narrative [facility] - 03/30/2017 11:51 AM EST Specimen requisition ordered. ??Separate Pathology report to follow Brant Chen MD PATHOLOGY/CYTOLOGY ORDERABLES Performing Organization Address [facility] Co de Phone Number [facility] [place] [phone] * Surgical Pathology Report (03/30/2017 11:50 AM EST) Final Diagnosis [id number] ? Location: [facility]; A The signing pathologist has (i) examined the relevant preparation(s) for the specimen(s) and (ii) rendered or confirmed the diagnosis(es). . ?Surgical Pathology DIAGNOSIS A,B - See Synoptic C - Left breast, Deep/lateral margin re-excision - ?Benign fatty breast tissue. D - Left breast, Superficial margin re-excision - ?Benign fatty breast tissue. See Note Note - [place] ink (indicating additional cranial margin) is also present on this superficial margin re-excision. ---- Specimen Parts: ?? A - Left axilliary sentinel node B - Left breast partial mastectomy Specimen ? Procedure: ??Excision with image-guided localization ? Lymph Node Sampling: ?? [place] lymph node(s) ? Specimen Laterality: ?? Left [...] not present in specimen Lymph Nodes ? [place] Lymph Nodes: ?? [place] lymph node biopsy performed ? Number of [place] Nodes Examined: ?3 ? Number of Lymph [...] [facility] Dept[facility], [place], [place] CLINICAL INFORMATION Specimen Submitted: A - [...] and there are ??no close margins. per [facility] Radiology . Specimen Description: According [...] 0.8 x 0.4 x 0.4 cm. Color: [place] and yellow. Consistency: Soft. Location: Slices III and IV. Nearest Margin: 0.6 cm to the cranial margin. Other Margins: 0.8 cm to the deep margin, 1.0 cm to the superficial margin, ? > 2 cm from all other margins. OTHER Parenchyma: Predominately fatty with scant fibrous tissue. Wire/Clip: Biopsy marker clip identified within slice IV. SECTIONS/PROCESSI NG: (1) guest service representative slice I, lateral margin; (2) slice III, lesion to cranial margin; (3-5) remainder of slice III; (6) slice IV, lesion to cranial margin (clip); (7-8) remainder of slice IV; (9) guest service representative slice V; (10) guest service representative slice X, medial margin. (R10) [...] MD PATHOLOGY/CYTOLOGY ORDERABLES [facility] [place] [address] * Mammo Direct Digital Left (03/30/2017 9:15 [...] Routine documented in this encounter Care Teams Security System Installer Relationship Specialty Start Date End Date Ana Her MD [address] [place] [address] PCP - General 07/29/13 documented as of this encounter
--- OUTSIDE RECORDS SUMMARY | 2024-05-30 11:17 | XMS_ITS | Encounter Summary ---
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 HEMATOLOGY/[place] [address] [facility] Xray [address] [place] [address] [place] [address] Referral ID Status Reason Start Date Expiration Date V isits Requested Visits Authorized [id number] Closed Specialty Service Requested 05/22/2020 11/19/2021 1 1 Reason for Visit * Diagnostic Test (Routine) - Closed Specialty Diagnoses / Procedures Referred By Contac t Referred To Contact Radiology Diagnoses Malignant neoplasm of lower-outer quadrant of left breast of female, estrogen receptor positive Osteopenia of neck of femur, unspecified laterality prison current use of aromatase inhibitor Procedures DXA Central Spine, Hip, and/or Whole Body (Generic) Ricky Lowry MD [facility] HEMATOLOGY/[place] [address] [facility] Rad Xray [address] [place] [address] Dr SeoNADINE briscoe [phone] Referral ID Status Reason Start Date Expiration Date V isits Requested Visits Authorized [id number] Closed Specialty Service Requested 05/22/2020 11/19/2021 1 1 Encounter Details Date Type Department Care Team (Latest Contact Info) Description 11/15/2020 2:25 PM EDT - 11/15/2020 11:59 PM EDT Hospital Encounter XRay at [address] [place] [address] Ricky Lowry MD Malignant neoplasm of lower-outer quadrant of left breast of female, estrogen receptor positive; Osteopenia of neck of femur, unspecified laterality; 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 Paper copies will be sent to providers without E- access. If you have received this report without the data sheet and do not have access to [facility], please contact Radiology Cafe Manager at [phone] Thursday thru Thursday 8am-4pm. Thank you for letting us participate in the care of this patient. ??If you are a health care provider and have any questions regarding this report, please contact the number below. ??For patients who have questions please contact the health district manager primary care sales that requested your imaging first. ? Electronically signed by: Nat Epperson MD, [facility] ([phone]), at 11/19/2020 1:09 PM Narrative 11/19/2020 1:09 [...] BMD measurements and plots are available in [employer] the imaging tab. Paper copies will be sent to providers without - access.If you have received this report without the data sheet and do not haveaccess to [facility], please contact Radiology Cafe Manager at [phone] Thursday thrrid 8am-4pm. Thank you for letting us participate in the care of this patient. If youare a health care provider and have any questions regarding this report,please contact the number below. For patients who have questions please contactthe health district manager primary care sales that requested your imaging first. 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
--- OUTSIDE RECORDS SUMMARY | 2024-05-30 11:17 | XMS_ITS | Encounter Summary ---
Author Organization [facility] [place] [address] Care Team Providers Care Heel Blacker Name Role Phone Ana Her MD Primary Care Provider [phone] Encounter Details Date Type Department Care Team (Latest Contact Info) Description 06/11/2021 8:41 AM EST - 06/11/2021 11:59 PM [facility] Hospital Encounter Mammography/[place] [phone] Jeanine Lobato APRN [facility] [place] [address] Malignant neoplasm of lower-outer quadrant of left [...] Take 40 mg by mouth daily. omega 7-qnm-ift-fish-turm salty 417 mg-120 mg- 276 mg-600 mg [...] who have questions please contact the health prompt care rn that requested your imaging first. ? Jeanine Lobato HISTOLOGY SPECIALIST IMG MAMMO ORD ERABLES documented in this encounter Visit Diagnoses Diagnosis Malignant neoplasm of lower-outer quadrant of left breast of female, estrogen receptor positive Breast cancer screening by mammogram documented in this encounter Care Teams Heel Blacker Relationship Specialty Start Date End Date Ana Her MD [address] [place] [address] PCP - General 07/29/13 documented as of this encounter
--- OUTSIDE RECORDS SUMMARY | 2024-05-30 11:17 | XMS_ITS | Encounter Summary ---
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 Procedures DXA Central-Spine, Hip, And/Or Whole Body (Generic) Ricky Lowry MD [facility] HEMATOLOGY/[place] [address] [facility] Rad Xray [address] [place] [address] [place] [address] Referral ID Status Reason Start Date Expiration Date V isits Requested Visits Authorized [id number] Closed Specialty Service Requested 05/10/2018 05/10/2019 1 [...] And/Or Whole Body (Generic) Ricky Lowry MD [facility] HEMATOLOGY/[place] [address] [facility] Rad Xray [address] [place] [address] Dr Alaina, [place] [address] Referral ID Status Reason Start Date Expiration Date V isits Requested Visits Authorized [id number] Closed Specialty Service Requested 05/10/2018 05/10/2019 1 1 Encounter Details Date Type Department Care Team (Latest Contact Info) Description 11/09/2018 1:03 PM EDT - 11/09/2018 11:59 PM EDT Hospital Encounter XRay at [address] [place] [address] Ricky Lowry MD Malignant neoplasm of lower-outer quadrant of left breast of female, estrogen receptor positive; Osteopenia of neck of femur, unspecified laterality; 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 Paper copies will be sent to providers without E-[employer] access. If you have received this report without the data sheet and do not have access to [facility], please contact Radiology Manager Fire at [phone] Thursday thru Thursday 8am-4pm. Thank you for letting us participate in the care of this patient. For questions regarding this report, please contact the number below. ? Electronically signed by: JULIET Jackson [facility] ([phone]), at 11/10/2018 10:55 AM Narrative 11/10/2018 10:55 [...] BMD measurements and plots are available in [employer] the imaging tab. Paper copies will be sent to providers without [employer] access.If you have received this report without the data sheet and do not haveaccess to [employer], please contact Radiology Manager Fire at [phone] Thursday thruFriday 8am-4pm. Thank you for letting us participate in the care of this patient. Forquestions regarding this report, please contact the number below. 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
--- OUTSIDE RECORDS SUMMARY | 2024-05-30 11:17 | XMS_ITS | Encounter Summary ---
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
--- OUTSIDE RECORDS SUMMARY | 2024-05-30 11:17 | XMS_ITS | Encounter Summary ---
Author Organization [facility] [place] [address] Care Team Providers Care Cinnamon Grinder Name Role Phone Ana Her MD Primary Care Provider [phone] Encounter Details Date Type Department Care Team (Latest Contact Info) Description 05/31/2019 10:16 AM EST - 05/31/2019 11:59 PM EST Hospital Encounter Mammography/[place] [address] Jeanine Lobato APRN [facility] [place] [address] History of breast cancer Discharge Disposition: Home [...] BIRADS CATEGORY 2: Benign findings. * ??[employer] and [employer] Society of [...] breast documented in this encounter Care Teams Cinnamon Grinder Relationship Specialty Start Date End Date Ana Her MD [address] [place] [address] PCP - General 07/29/13 documented as of this encounter
--- OUTSIDE RECORDS SUMMARY | 2024-05-30 11:17 | XMS_ITS | Encounter Summary ---
[place] [address] Care Team Providers Care Auto Accessories Installer Name Role Phone Ana Her MD Primary Care Provider [phone] Reason for Visit * Reason Comments Follow-up Encounter Details Date Type Department Care Team (Late st Contact Info) Description 05/22/2020 11:40 AM EST Office Visit [place] [address] Jeanine Lobato APRN [facility] [place] [address] Encounter for follow-up surveillance of breast cancer; [...] ??Excision with image-guided localization ?Lymph Node Sampling: ??[place] lymph node(s) ?Specimen Laterality: ??Left Tumor ?Histologic [...] ??DCIS not present in specimen Lymph Nodes ?[place] Lymph Nodes: [place] lymph node biopsy performed ?Number of [place] Nodes Examined: ??3 ?Number of Lymph Node(s) [...] herex- speak almost daily. He lives in [place] [...] Results: Imaging performed (bilateral mammogram) at [facility] today shows no [...] available at [employer] and [employer]. All questions were answered to the patient's satisfaction and they state understanding and agreement with today's treatment plan. They are encouraged to follow up sooner if they develop any new or concerning symptoms. Jeanine Lobato APRN Surgical Oncology P [phone] F [phone] [facility] documented in this encounter Plan [...] have questions please contact the health manager home healthcare that requested your imaging first. ? Electronically signed by: Digna Noel MD, [facility] ([phone]), at 06/11/2021 9:20 AM Jeanine Lobato APRN [...] mammogram documented in this encounter Care Teams Auto Accessories Installer Relationship Specialty Start Date End Date Ana Her MD [facility] [address] [place] [address] PCP - General 07/29/13 documented as of this encounter
--- OUTSIDE RECORDS SUMMARY | 2024-05-30 11:17 | XMS_ITS | Encounter Summary ---
[place] [address] Care Team Providers Care Cell Cleaner Name Role Phone Ana Her MD Primary Care Provider Encounter Details Date Type Department Care Team (Late st Contact Info) Description 03/30/2017 11:19 AM EST Anesthesia Event [place] [address] Bridgette Mclaughlin MD Collins, Sarah J, SKYDIVING INSTRUCTOR [address] [place] [address] Anesthesia Record Procedure Summary Procedure Name Responsible [...] 0815; median cubital vein (antecubital fossa), right; [id number]-[id number]-[id number] catheter system; 20 gauge, 1 in length; [...] Bridgette Mclaughlin - 03/30/2017 2:13 PM EST [facility] Department of Anesthesiology Post-procedure Note Patient: Digna Olson Procedure Summary Date Anesthesia Start Anesthesia Stop Room / Location 03/30/17 1119 1239 [facility] OR 24 / MH MAIN OR [...] All Anesthesia Providers: Anesthesiologist: Bridgette Mclaughlin MD SKYDIVING INSTRUCTOR: Laura Koo CRNA Most Recent Vitals: 03/30/17 [...] risks discussed with patient. Plan discussed with SKYDIVING INSTRUCTOR. [facility] Staff Note documented in this encounter [...] r documented in this encounter Care Teams Cell Cleaner Relationship Specialty Start Date End Date Ana Her MD [facility] [address] [place] [address] PCP - General 07/29/13 documented as of this encounter
--- OUTSIDE RECORDS SUMMARY | 2024-05-30 11:17 | XMS_ITS | Encounter Summary ---
[place] [address] Care Team Providers Care First Aid Teacher Name Role Phone Ana Her MD Primary Care Provider [phone] Encounter Details Date Type Department Care Team (Late st Contact Info) Description 05/06/2017 Telephone Radiation Oncology at [address] [address] Maria A Antonio RN Social [...] on filedocumented in this encounter Care Teams First Aid Teacher Relationship Specialty Start Date End Date Ana Her MD [address] [facility] [place] [address] PCP - General 07/29/13 documented as of this encounter
--- OUTSIDE RECORDS SUMMARY | 2024-05-30 11:17 | XMS_ITS | Encounter Summary ---
[place] [address] Care Team Providers Care Quality Assurance Qa Lab Technician Name Role Phone Ana Her MD Primary Care Provider [phone] Encounter Details Date Type Department Care Team (Late st Contact Info) Description 11/09/2018 2:45 PM EDT Office Visit Hematology and [place]cology [place] [address] Ricky Lowry MD Malignant neoplasm of lower-outer [...] ??Excision with image-guided localization ?Lymph Node Sampling: ??[place] lymph node(s) ?Specimen Laterality: ??Left Tumor [...] ??DCIS not present in specimen Lymph Nodes ?[place] Lymph Nodes: [place] lymph node biopsy performed ?Number of [place] Nodes Examined: ??3 ?Number of Lymph [...] laterality documented in this encounter Care Teams Quality Assurance Qa Lab Technician Relationship Specialty Start Date End Date nAa Her MD [address] [place] [address] PCP - General 07/29/13 documented as of this encounter
--- OUTSIDE RECORDS SUMMARY | 2024-05-30 11:17 | XMS_ITS | Encounter Summary ---
[place] [address] Care Team Providers Care Whirley Operator Name Role Phone Ana Her MD Primary Care Provider [phone] Encounter Details Date Type Department Care Team (Late st Contact Info) Description 04/09/2017 Abstract Radiation Oncology at [address] [phone] Maria A Antonio, RN Social History Tobacco [...] on filedocumented in this encounter Care Teams Whirley Operator Relationship Specialty Start Date End Date Ana Her MD [address] [place] [address] PCP - General 07/29/13 documented as of this encounter
--- OUTSIDE RECORDS SUMMARY | 2024-05-30 11:17 | XMS_ITS | Encounter Summary ---
Author Organization [facility]ending [facility] [place] [address] Care Team Providers Care Gasket Notcher Name Role Phone Ana Her MD Primary Care Provider [phone] Encounter Details Date Type Department Care Team (Late st Contact Info) Description 05/31/2019 1:00 PM EST Office [place] [address] Jeanine Lobato VACCINATOR [facility] [place] [address] Encounter for follow-up surveillance of breast cancer; [...] obtained which revealed IDC which is ER/WV+, Her2-. She hasno known breast masses, no adenopathy, no nipple discharge. 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 He lives in [place]. She enjoys reading and cooking. She does [...] situation. Results: Imaging performed (bilateral mammogram) at [facility] today shows no evidence of malignancy, BIRADS [...] symptoms. Jeanine Lobato APRN Surgical Oncology P [phone] F [phone] [facility] documented in this encounter Plan of [...] mammogram documented in this encounter Care Teams Gasket Notcher Relationship Specialty Start Date End Date Ana Her MD [facility] [address] [facility] [address] [place] [address] PCP - General 07/29/13 documented as of this encounter
--- OUTSIDE RECORDS SUMMARY | 2024-05-30 11:17 | XMS_ITS | Encounter Summary ---
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 DR HEMATOLOGY/[place] [address] [facility] Rad Xray [address] [place] [address] [place] [address] Referral ID Status Reason Start Date Expiration Date V isits Requested Visits Authorized [id number] Closed Specialty Service Requested 05/22/2020 11/19/2021 1 1 Encounter Details Date Type Department Care Team (Late st Contact Info) Description 05/22/2020 1:15 PM EST Office Visit Hematology and Oncology at [place] [address] Ricky Lowry MD Malignant neoplasm [...] ??Excision with image-guided localization ?Lymph Node Sampling: ??[place] lymph node(s) ?Specimen Laterality: ??Left Tumor ?Histologic [...] ??DCIS not present in specimen Lymph Nodes ?[place] Lymph Nodes: [place] lymph node biopsy performed ?Number of [place] Nodes Examined: ??3 ?Number of Lymph Node(s) [...] BMD measurements and plots are available in [employer] under the imaging tab. Paper copies will be sent to providers without [employer] access. If you have received this report without the data sheet and do not have access to [employer], please contact Radiology [facility] at [phone] Thursday thru Thursday 8am-4pm. Thank you for letting us participate in the care of this patient. ??If you are a health care provider and have any questions regarding this report, please contact the number below. ??For patients who have questions please contact the health healthcare recruiter that requested your imaging first. ? Electronically signed by: Nat Epperson MD, [facility] ([phone]), at 11/19/2020 1:09 PM Narrative 11/19/2020 1:09 [...] BMD measurements and plots are available in [employer] the imaging tab. Paper copies will be sent to providers without [employer] access.If you have received this report without the data sheet and do not haveaccess to [employer], please contact Radiology at [phone] Thursday thruFriday 8am-4pm. Thank you for letting us participate in the care of this patient. If youare a health care provider and have any questions regarding this report,please contact the number below. For patients who have questions please contactthe health healthcare recruiter that requested your imaging first. Ricky Lowry [...] documented in this encounter Care Teams Special Collections Librarian Relationship Specialty Start Date End Date Ana Her MD [address] [place] [address] PCP - General 07/29/13 documented as of this encounter
--- OUTSIDE RECORDS SUMMARY | 2024-05-30 11:17 | XMS_ITS | Encounter Summary ---
[place] [address] Care Team Providers Care Corporate Financial Analyst Name Role Phone Ana Her MD Primary Care Provider [phone] Encounter Details Date Type Department Care Team (Late st Contact Info) Description 06/12/2021 Telephone [place] [address] Chelsie Lauren Social History Tobacco Use Types [...] filedocumented in this encounter Care Teams Corporate Financial Analyst Relationship Specialty Start Date End Date Ana Her MD [address] [place] [address] PCP - General 07/29/13 documented as of this encounter
--- OUTSIDE RECORDS SUMMARY | 2024-05-30 11:17 | XMS_ITS | Encounter Summary ---
[place] [address] Care Team Providers Care Regulatory Intern Name Role Phone Ana Her MD Primary Care Provider [phone] Reason for Visit * Reason Comments Schedule Office Case Encounter Details Date Type Department Care Team (Late st Contact Info) Description 04/23/2017 2:00 PM EST Office Visit [place] [phone] Ricky Lowry MD Malignant neoplasm of lower-outer [...] ??Excision with image-guided localization ?Lymph Node Sampling: ??[place] lymph node(s) ?Specimen Laterality: ??Left Tumor ?Histologic [...] ??DCIS not present in specimen Lymph Nodes ?[place] Lymph Nodes: [place] lymph node biopsy performed ?Number of [place] Nodes Examined: ??3 ?Number of Lymph Node(s) [...] was in this year at [facility]. There is no history of thromboembolic events. [...] positive documented in this encounter Care Teams Regulatory Intern Relationship Specialty Start Date End Date Ana Her MD [address] [place] [address] PCP - General 07/29/13 documented as of this encounter
--- OUTSIDE RECORDS SUMMARY | 2024-05-30 11:17 | XMS_ITS | Encounter Summary ---
Author Organization [facility] [address] Care Team Providers Care Resident Intern Name Role Phone Ana Her MD Primary Care Provider [phone] Reason for Visit * Reason Comments Follow-up Encounter Details Date Type Department Care Team (Late st Contact Info) Description 05/31/2019 11:45 AM EST Office Visit H[place]ology [place] [phone] Ricky Lowry MD Malignant neoplasm of lower-outer [...] cancer cells with immunostaining) Stain intensity: Strong VA immunoreactivity: Positive (>90% cancer cells with immunostaining) [...] ??Excision with image-guided localization ?Lymph Node Sampling: ??[place] lymph node(s) ?Specimen Laterality: ??Left Tumor ?Histologic [...] ??DCIS not present in specimen Lymph Nodes ?[place] Lymph Nodes: [place] lymph node biopsy performed ?Number of [place] Nodes Examined: ??3 ?Number of Lymph Node(s) [...] Spinal stenosis > A Fib. Cardiology at [facility]. S/P successful cardioversion [...] positive documented in this encounter Care Teams Resident Intern Relationship Specialty Start Date End Date Ana Her MD [facility] [address] [facility] [address] [place] [address] PCP - General 07/29/13 documented as of this encounter
--- OUTSIDE RECORDS SUMMARY | 2024-05-30 11:17 | XMS_ITS | Encounter Summary ---
Author Organization [facility] [place] [address] Care Team Providers Care Medical Claims Specialist Name Role Phone Ana Her MD Primary Care Provider [phone] Encounter Details Date Type Department Care Team (Latest Contact Info) Description 03/30/2017 8:30 AM [facility] Hospital [place] [address] Maliak Chen MD [facility] [place] [address] Malignant neoplasm of upper-outer quadrant of left [...] mg documented in this encounter Care Teams Medical Claims Specialist Relationship Specialty Start Date End Date Ana Her MD [address] [place] [address] PCP - General 07/29/13 documented as of this encounter
--- OUTSIDE RECORDS SUMMARY | 2024-05-30 11:17 | XMS_ITS | Encounter Summary ---
Author Organization [place] [address] Care Team Providers Care Harvest Supervisor Name Role Phone Ana Her MD Primary Care Provider [phone] Encounter Details Date Type Department Care Team (Late st Contact Info) Description 03/30/2017 Notes [place] [address] January Ward MSW Social History Tobacco Use [...] tondenise. Their granddaughters are traveling from [place] and plan to accompany pt to see her implementation advisor at [facility] tomorrow. Pt has been followed by this physician for her cardiac problems. [facility] will continue to provide support and resources to pt. documented in this encounter Plan of Treatment Not on file documented as of this encounter Visit Diagnoses Not on filedocumented in this encounter Care Teams Harvest Supervisor Relationship Specialty Start Date End Date Ana Her MD [address] [facility] 1 [place] [address] PCP - General 07/29/13 documented as of this encounter
--- OUTSIDE RECORDS SUMMARY | 2024-05-30 11:17 | XMS_ITS | Encounter Summary ---
Author Organization [facility] [place] [address] Care Team Providers Care Beverage Distiller Name Role Phone Ana Her MD Primary Care Provider [phone] Encounter Details Date Type Department Care Team (Latest Contact Info) Description 05/22/2020 10:46 AM EST - 05/22/2020 11:59 PM [facility] Hospital Encounter Mammography/[place] [phone] Jeanine Lobato APRN [facility] [place] [address] Malignant neoplasm of lower-outer quadrant of left [...] mammogram documented in this encounter Care Teams Beverage Distiller Relationship Specialty Start Date End Date Ana Her MD [facility] [address] [facility] 1 [place] [address] PCP - General 07/29/13 documented as of this encounter
--- OUTSIDE RECORDS SUMMARY | 2024-05-30 11:17 | XMS_ITS | Encounter Summary ---
[place] [address] Care Team Providers Care Tax Services Manager Name Role Phone Ana Her MD Primary Care Provider [phone] Encounter Details Date Type Department Care Team (Late st Contact Info) Description 04/05/2018 Telephone [place] [address] Adrianna Jones Social History Tobacco Use Types [...] Padgett. Patient advises she is admitted at [facility] for afib and is pending procedure etc. Patient will call to reschedule once she is discharged home. documented in this encounter Plan of Treatment Not on file documented as of this encounter Visit Diagnoses Not on filedocumented in this encounter Care Teams Tax Services Manager Relationship Specialty Start Date End Date Ana Her MD [address] [place] [address] PCP - General 07/29/13 documented as of this encounter
--- OUTSIDE RECORDS SUMMARY | 2024-05-30 11:17 | XMS_ITS | Encounter Summary ---
Author Organization [facility] Address [facility] [address] Care Team Providers Care Legal Aid Name Role Phone Ana Her MD Primary Care Provider [phone] Encounter Details Date Type Department Care Team (Late st Contact Info) Description 09/03/2021 Ancillary Procedure Radiology Library at [facility] [place] [address] Laura Will MD [facility] [place] [address] Social History Tobacco Use Types Packs/Day Years [...] CT Chest (09/03/2021 12:00 AM EDT) Narrative [facility] - 11/28/2021 1:22 PM EDT This exam is auto-finalizing. It's purpose is for storage only. Laura Will MD IMG FILM LIBRARY OR DERABLES Performing Organization Address City/State/[facility] Co de Phone Number [place], [place] documented in this encounter Visit Diagnoses Not on filedocumented in this encounter Care Teams Legal Aid Relationship Specialty Start Date End Date Ana Her MD [address] [facility] [address] [place] [address] PCP - General 07/29/13 documented as of this encounter
--- OUTSIDE RECORDS SUMMARY | 2024-05-30 11:18 | XMS_ITS | Encounter Summary ---
Author Organization [facility] Address [facility] [place] [address] Care Team Providers Care Veneer Glue Spreader Name Role Phone Unavailable Primary Care Provider Unavailabl e Encounter Details Date Type Department Care Team (Latest Contact Info) Description 11/12/2007 - 11/12/2007 11:59 PM EDT Hospital Encounter Radiology Library at [facility] [place] [address] Jackie Cisneros APRN [facility] [place] [address] Discharge Disposition: Home Social History Tobacco Use [...] Only Mammo (11/12/2007 12:00 AM EDT) Narrative [facility] - 02/23/2017 3:31 PM EDT This exam is for storage only and is auto-finalizing. Jackie Cisneros APRN IMG FILM LIBRARY ORD ERABLES NADINE Sethi documented in this encounter Visit Diagnoses Not on filedocumented in this encounter
--- OUTSIDE RECORDS SUMMARY | 2024-05-30 11:18 | XMS_ITS | Encounter Summary ---
Author Organization [facility] Address [address] [facility] [place] [address] Care Team Providers Care Epidemiology Internship Name Role Phone Ana Her MD Primary Care Provider [phone] Encounter Details Date Type Department Care Team (Late st Contact Info) Description 09/13/2015 Interpretation Only Radiology [address] [facility] [place] [address] Unknown None Social History Tobacco Use Types [...] 6:56 AM EDT APD Historical Result Principal Non Destructive Tester: ??MAE ??ESCHBACH IMAGE-INTENSIFIER FILMS: INDICATION: ??Right L4 foraminotomy. FINDINGS: A total of 5.8 seconds of fluoro time was utilized by Geraldine Claros MD. ??Estimated dose is 5.96 mGy. ??Two image-intensifier films record the event. ??They show the lumbosacral junction in the lateral projection with a surgical instrument indicating the level of L4. ??No Radiologist was present for this exam. Mae Shelley DO TOBIN/mn [id number] Procedure Note Unknown - 11/01/2018 APD Historical Result Principal Non Destructive Tester: MAE SHELLEY IMAGE-INTENSIFIER FILMS: INDICATION: Right L4 foraminotomy. FINDINGS: A total of 5.8 seconds of fluoro time was utilized by Geraldine Claros MD. Estimated dose is 5.96 mGy. Two image-intensifier films record the event. They show thelumbosacral junction in the lateral projection with a surgical instrument indicating the level of L4.No Radiologist was present for this exam. Mae Shelley DO TBOIN/mn [id number] Unknown IMG FLUORO ORDERABLE S documented in this encounter Visit Diagnoses Not on filedocumented in this encounter Care Teams Epidemiology Internship Relationship Specialty Start Date End Date Ana Her MD [address] [place] [address] PCP - General 07/29/13 documented as of this encounter
--- OUTSIDE RECORDS SUMMARY | 2024-05-30 11:18 | XMS_ITS | Encounter Summary ---
[place] [address] Care Team Providers Care Account Leader Name Role Phone Ana Her MD Primary Care Provider [phone] Reason for Visit * Reason Onset Date Comments Referral 07/29/2013 Encounter Details Date Type Department Care Team (Late st Contact Info) Description 07/29/2013 Telephone [place] [phone] Sophia Palacios Referral Social History Tobacco Use [...] filedocumented in this encounter Care Teams Account Leader Relationship Specialty Start Date End Date Ana Her MD [address] [facility] [address] [place] [address] PCP - General 07/29/13 documented as of this encounter
--- OUTSIDE RECORDS SUMMARY | 2024-05-30 11:18 | XMS_ITS | Encounter Summary ---
Author Organization [facility] Address [facility] [place] [address] Care Team Providers Care Mercerizing Range Controller Name Role Phone Unavailable Primary Care Provider Unavailabl e Encounter Details Date Type Department Care Team (Latest Contact Info) Description 03/19/2006 - 03/19/2006 11:59 PM EST Hospital Encounter Radiology Library at [facility] [place] [address] Jackie Cisneros APRN [facility] [place] [address] Discharge Disposition: Home Social History [...]
--- OUTSIDE RECORDS SUMMARY | 2024-05-30 11:18 | XMS_ITS | Encounter Summary ---
Author Organization [facility] Address [facility] [place] [address] Care Team Providers Care Entry Level Marketing Representative Name Role Phone Ana Her MD Primary Care Provider [phone] Encounter Details Date Type Department Care Team (Latest Contact Info) Description 02/17/2017 - 02/17/2017 12:14 AM EDT Hospital Encounter Radiology Library at [facility] [place] [address] Maryam Yee MD [facility] [place] [address] Screening breast examination Discharge Disposition: Home Social [...] Mammo (02/17/2017 12:00 AM EDT) Narrative [facility] - 02/19/2017 1:59 PM EDT This exam is for storage only and is auto-finalizing. Maryam Yee MD IMG FILM LIBRARY O RDERABLES Performing Organization Address City/State/[facility] Co de Phone Number [place], [place] documented in this encounter Visit Diagnoses Diagnosis Screening breast examination Other screening breast examination documented in this encounter Care Teams Entry Level Marketing Representative Relationship Specialty Start Date End Date Ana Her MD [address] [place] [address] PCP - General 07/29/13 documented as of this encounter
--- OUTSIDE RECORDS SUMMARY | 2024-05-30 11:18 | XMS_ITS | Clinical Summary ---
Author Organization [facility] Address [address] [place] [address] Care Team Providers Care Curriculum Supervisor Name Role Phone Unknown, Provider MD [...] COVID-19 Vaccine (2023- season) 2024 Care Teams Curriculum Supervisor Relationship Specialty Start Date End Date Unknown, Provider, PCP - General 01/13/14
--- OUTSIDE RECORDS SUMMARY | 2024-05-30 11:18 | XMS_ITS | Encounter Summary ---
Author Organization [facility] [place] [address] Care Team Providers Care Night Custodian Name Role Phone Ana Her MD Primary Care Provider [phone] Encounter Details Date Type Department Care Team (Latest Contact Info) Description 02/17/2017 12:15 AM EDT - 02/17/2017 11:59 PM EDT Hospital Encounter Radiology Library [place] [facility] [place] [address] Maryam Yee MD [facility] [place] [address] Screening breast examination Discharge Disposition: Home Social [...] Only Mammo (02/17/2017 12:15 AM EDT) Narrative [facility] - 02/19/2017 2:01 PM EDT This exam is for storage only and is auto-finalizing. Maryam Yee MD IMG FILM LIBRARY O RDERABLES [place], [place] documented in this encounter Visit Diagnoses Diagnosis Screening breast examination Other screening breast examination documented in this encounter Care Teams Night Custodian Relationship Specialty Start Date End Date Ana Her MD [address] [place] [address] PCP - General 07/29/13 documented as of this encounter
--- OUTSIDE RECORDS SUMMARY | 2024-05-30 11:18 | XMS_ITS | Encounter Summary ---
Author Organization [facility] [place] [address] Care Team Providers Care Major Appliance Assembly Supervisor Name Role Phone Ana Her MD Primary Care Provider [phone] Encounter Details Date Type Department Care Team (Latest Contact Info) Description 02/25/2017 1:32 PM EDT - 02/25/2017 1:35 PM EDT Hospital [place] [address] Maryam Yee MD [facility] [place] [address] Abnormal mammogram Discharge Disposition: Home Social History [...] PM EDT 02/25/2017 3:02 PM EDT Narrative [facility] - 02/25/2017 3:02 PM EDT Specimen requisition ordered. ??Separate Pathology report to follow Enzo Burkett MD PATHOLOGY/CYTOLOGY O [facility] [place] [address] documented in this encounter Visit Diagnoses Diagnosis [...] mg documented in this encounter Care Teams Major Appliance Assembly Supervisor Relationship Specialty Start Date End Date Ana Her MD [address] [place] [address] PCP - General 07/29/13 documented as of this encounter
--- OUTSIDE RECORDS SUMMARY | 2024-05-30 11:18 | XMS_ITS | Encounter Summary ---
Author Organization [facility] Address [address] [place] [address] Care Team Providers Care Editing Internship Name Role Phone Unknown, Provider Primary Care Provider Unava ilable Encounter Details Date Type Department Care Team (Late st Contact Info) Description 08/12/2021 Lab Requisition [facility] Pathology & Laboratory Medicine - [facility] [address] [place] [address] Outr Resulting Lab, Provider Social History Tobacco [...] in this encounter Results * COVID-19 TEST [facility] PCR (08/12/2021 15:00 EDT) Swab 08/12/2021 15:0 0 EDT 08/13/2021 16:56 EDT us Provider Outr Resulting Lab MICROBIOLOGY - GENER AL ORDERABLES Final Result [facility] [address] [place] [address] * COVID-19 TESTING (08/12/2021 15:00 EDT) COVID-19 rt-PCR Result Negative Negative 08/14/2021 11:53 EDT [facility] Comment: This test [...] was performed using the palomo SARS-CoV-2 assay ([employer] on the Palomo 6800 System Performing Lab [facility] [address] [facility] 08/14/2021 11:53 EDT [facility] Swab 08/12/2021 15:0 0 EDT 08/13/2021 16:56 EDT us Provider Outr Resulting Lab MICROBIOLOGY - GENER AL ORDERABLES Final Result [facility] [address] [place] [address] documented in this encounter Visit Diagnoses Not on filedocumented in this encounter Care Teams Editing Internship Relationship Specialty Start Date End Date Unknown, Provider, PCP - General 01/13/14 documented as of this encounter
--- OUTSIDE RECORDS SUMMARY | 2024-05-30 11:18 | XMS_ITS | Encounter Summary ---
[facility] Address [facility] [place] [address] Care Team Providers Care Director Clinical Data Name Role Phone Unavailable Primary Care Provider Unavailabl e Encounter Details Date Type Department Care Team (Latest Contact Info) Description 12/25/2010 - 12/25/2010 11:59 PM EDT Hospital Encounter Radiology Library at [facility] [place] [address] Jackie Cisneros APRN [facility] [place] [place] [address] Discharge Disposition: Home Social History Tobacco Use [...] Mammo (12/25/2010 12:00 AM EDT) Narrative [facility] - 02/23/2017 3:27 PM EDT This exam is for storage only and is auto-finalizing. Jackie Cisneros APRN IMG FILM LIBRARY ORD ERABLES NADINE Sethi documented in this encounter Visit Diagnoses Not on filedocumented in this encounter
--- OUTSIDE RECORDS SUMMARY | 2024-05-30 11:18 | XMS_ITS | Encounter Summary ---
Author Organization [facility] [place] [address] Care Team Providers Care Fire Apparatus Sprinkler Inspector Name Role Phone Ana Her MD Primary Care Provider [phone] Encounter Details Date Type Department Care Team (Late st Contact Info) Description 03/04/2017 Orders [place] [address] Malika Chen MD [facility] [address] Malignant neoplasm of upper-outer quadrant of left [...] MD IMG MAMMO ORDERABLE S * Mammo [place] Node Injection (03/30/2017 9:01 AM EST) Anatomical [...] documented in this encounter Care Teams Fire Apparatus Sprinkler Inspector Relationship Specialty Start Date End Date Ana Her MD [address] [facility] 1 [place] [address] PCP - General 07/29/13 documented as of this encounter
--- OUTSIDE RECORDS SUMMARY | 2024-05-30 11:18 | XMS_ITS | Encounter Summary ---
Author Organization Replaced By [facility] [place] [address] Care Team Providers Care Oven Baker Name Role Phone Ana Her MD Primary Care Provider [phone] Encounter Details Date Type Department Care Team (Late st Contact Info) Description 03/19/2017 Telephone [place] [address] Malika Chen MD [facility] [place] [address] Social History Tobacco Use Types Packs/Day Years [...] no unexpected bleeding. Surgery is scheduled in [facility]. documented in this encounter Plan of Treatment Not on file documented as of this encounter Visit Diagnoses Not on filedocumented in this encounter Care Teams Oven Baker Relationship Specialty Start Date End Date Ana Her MD [address] [facility] 1 [place] [address] PCP - General 07/29/13 documented as of this encounter
--- OUTSIDE RECORDS SUMMARY | 2024-05-30 11:18 | XMS_ITS | Encounter Summary ---
[place] [address] Care Team Providers Care Personal Trainer Name Role Phone Ana Her MD Primary Care Provider 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 * Surgical (Routine) - Closed Specialty Diagnoses / Procedures Referred By Christiano hackett Referred To Contact Orthopaedics Diagnoses Lumbar spinal stenosis Michelle Hurtado APRN [facility] [place] [address] [facility] [address] [place] [address] Referral ID Status Reason Start Date Expiration Date V isits Requested Visits Authorized [id number] Closed Consult, Test & Treat 09/08/2014 09/08/2015 3 3 Encounter Details Date Type Department Care Team (Late st Contact Info) Description 09/08/2014 Orders Only [place] [address] Michelle Hurtado NEGOTIATOR SALES [facility] [place] [address] Lumbar spinal stenosis Social History Tobacco Use [...] claudication documented in this encounter Care Teams Personal Trainer Relationship Specialty Start Date End Date Ana Her MD [facility] [address] [facility] 1 [place] [address] PCP - General 07/29/13 documented as of this encounter
--- OUTSIDE RECORDS SUMMARY | 2024-05-30 11:18 | XMS_ITS | Encounter Summary ---
Author Organization [facility] Address [address] [place] [address] Care Team Providers Care Social Human Services Assistants Name Role Phone Unknown, Provider Primary Care Provider Unava ilable Encounter Details Date Type Department Care Team (Late st Contact Info) Description 11/19/2023 Lab Requisition [facility] Pathology & Laboratory Medicine - [facility] [address] [place], [place] [address] Outr Resulting Lab, Provider Social History Tobacco [...] 201 - 352 mg/dL 11/20/2023 9:45 EDT [facility] Blood VENOUS BLOOD / Unknown 11/19/2023 6:05 EDT 11/19/2023 17:32 EDT us Provider Outr Resulting Lab CHEMISTRY & BLOOD GA S ORDERABLES Final Result [facility] [address] [place], [place] [address] documented in this encounter Visit Diagnoses Not on filedocumented in this encounter Care Teams Social Human Services Assistants Relationship Specialty Start Date End Date Unknown, Provider, PCP - General 01/13/14 documented as of this encounter
--- OUTSIDE RECORDS SUMMARY | 2024-05-30 11:18 | XMS_ITS | Encounter Summary ---
Author Organization [facility] [place] [address] Care Team Providers Care Electrician'S Assistant Name Role Phone Ana Her MD Primary Care Provider Encounter Details Date Type Department Care Team (Latest Contact Info) Description 02/25/2017 1:36 PM EDT - 02/25/2017 2:58 PM EDT Hospital Encounter [place] [phone] Maryam Yee MD [facility] [place] [address] Abnormal mammogram Discharge Disposition: Home Social History [...] unspecified documented in this encounter Care Teams Electrician'S Assistant Relationship Specialty Start Date End Date Ana Her MD [address] [place] [address] [address] [place] [address] PCP - General 07/29/13 documented as of this encounter
--- OUTSIDE RECORDS SUMMARY | 2024-05-30 11:18 | XMS_ITS | Encounter Summary ---
Author Organization [facility] Address [facility] [place] [address] Care Team Providers Care Forging Roll Operator Name Role Phone Unavailable Primary Care Provider Unavailabl e Encounter Details Date Type Department Care Team (Latest Contact Info) Description 04/04/2005 - 04/04/2005 11:59 PM EST Hospital Encounter Radiology Library at [facility] [place] [address] Jackie Cisneros APRN [facility] [place] [address] [place] [address] Discharge Disposition: Home Social History Tobacco Use [...]
--- OUTSIDE RECORDS SUMMARY | 2024-05-30 11:18 | XMS_ITS | Encounter Summary ---
[place] [address] Care Team Providers Care Regional Sales Associate Name Role Phone Ana Her MD Primary Care Provider [phone] Encounter Details Date Type Department Care Team (Late st Contact Info) Description 03/18/2017 Telephone [place] [phone] Bryanna Marsh RN Social History Tobacco Use [...] notes she had a colonoscopy done at [facility] and developed atrial fibrillation; she has been started on blood thinners. She was just discharged from the [facility] hospital, and called us to let [...] give Digna a call her number is [phone]. The below is from Dr. Chen visit [...] filedocumented in this encounter Care Teams Regional Sales Associate Relationship Specialty Start Date End Date Ana Her MD [address] [place] [address] PCP - General 07/29/13 documented as of this encounter
--- OUTSIDE RECORDS SUMMARY | 2024-05-30 11:18 | XMS_ITS | Encounter Summary ---
Author Organization [facility] Address [address] [place] [address] Care Team Providers Care Forensic Psychologist Name Role Phone Unknown, Provider MD Primary Care Provider Unava ilable Encounter Details Date Type Department Care Team (Late st Contact Info) Description 04/06/2022 Lab Requisition [facility] Pathology & Laboratory Medicine - [facility] [address] [place] [address] Outr Resulting Lab, Provider Social History Tobacco [...] Salmonella PCR Negative Negative 04/06/2022 22:54 EST [facility] Shigella/Enteroin vasive E. coli Negative Negative 04/06/2022 22:54 EST [facility] HN LAB CAMPYLOBACTER PCR Negative Negative 04/06/2022 22:54 EST [facility] Shiga Toxin PCR Negative Negative 22:54 EST [facility] Feces SPECIMEN FROM RECTUM / Unknown 04/05/2022 10:41 EST 04/06/2022 18:31 EST us Provider Outr Resulting Lab MICROBIOLOGY - GENER AL ORDERABLES Final Result [facility] [address] [place] [address] documented in this encounter Visit Diagnoses Not on filedocumented in this encounter Care Teams Forensic Psychologist Relationship Specialty Start Date End Date Unknown, Provider, PCP - General 01/13/14 documented as of this encounter
--- OUTSIDE RECORDS SUMMARY | 2024-05-30 11:18 | XMS_ITS | Encounter Summary ---
Author Organization [facility] Address [address] [place] [address] Care Team Providers Care Mopper Name Role Phone Unknown, Provider MD Primary Care Provider Unava ilable Encounter Details Date Type Department Care Team (Late st Contact Info) Description 10/26/2022 Lab Requisition [facility] Pathology & Laboratory Medicine - [facility] [address] [place] [address] Outr Resulting Lab, Provider Social History Tobacco [...] Neg and Giardia Antigen Neg 13:48 EDT [facility] Feces SPECIMEN FROM RECTUM / Unknown 10/25/2022 15:00 EDT 10/26/2022 15:25 EDT us Provider Outr Resulting Lab MICROBIOLOGY - GENER AL ORDERABLES Final Result [facility] [address] [place] [address] * FECAL BACTERIAL PATHOGENS BY PCR (10/25/2022 15:00 EDT) Salmonella PCR Negative Negative 10/26/2022 19:17 EDT [facility] Shigella/Enteroin vasive E. coli Negative Negative 10/26/2022 19:17 EDT [facility] HN LAB CAMPYLOBACTER PCR Negative Negative 10/26/2022 19:17 EDT [facility] Shiga Toxin PCR Negative Negative 19:17 EDT [facility] Feces SPECIMEN FROM RECTUM / Unknown 10/25/2022 15:00 EDT 10/26/2022 15:25 EDT us Provider Outr Resulting Lab MICROBIOLOGY - GENER AL ORDERABLES Final Result Performing Organization Address [facility] Co de Phone Number [facility] [address] [place] [address] * OVA/PARASITE EXAM (10/25/2022 15:00 EDT) Parasite No ova and parasites seen. 10/28/2022 15:08 EDT [facility] Feces SPECIMEN FROM RECTUM / Unknown 10/25/2022 15:00 EDT 10/26/2022 15:25 EDT Narrative [facility] - 10/28/2022 15:08 EDT (If Cryptosporidium, Cyclospora, or Microsporidium are suspected, specific tests must be requested.) Single negative specimen does not rule out the possibility of a parasitic infection. us Provider Outr Resulting Lab MICROBIOLOGY - GENER AL ORDERABLES Final Result Performing Organization Address City/[facility]/ZIP Co de Phone Number [facility] [address] [place] [address] documented in this encounter Visit Diagnoses Not on filedocumented in this encounter Care Teams Mopper Relationship Specialty Start Date End Date Unknown, Provider, PCP - General 9/12/14 documented as of this encounter
--- OUTSIDE RECORDS SUMMARY | 2024-05-30 11:18 | XMS_ITS | Encounter Summary ---
[place] [address] Care Team Providers Care Heel Boom Operator Name Role Phone Ana Her MD Primary Care Provider [phone] Encounter Details Date Type Department Care Team (Latest Contact Info) Description 03/03/2017 7:55 AM EDT Laboratory Appointment Lab [address] [place] [address] Malignant neoplasm of left breast in female, [...] [facility] Monocyte % 5.6 % [facility] Monocyte Abs 0.5 0.3 - 0.9 x10(3)/ L [facility] Eos % 6.1 % [facility] Eosinophils Abs 0.5(H) 0.0 - 0.4 x10(3)/ L [facility] Basophil % 0.6 % [facility] Baso Absolute 0.0 0.0 - [...] ES [facility] [place] [address] * (ABNORMAL) Hemogram (03/03/2017 7:50 AM EDT) [...] [facility] NRBC% auto 0.0 % [facility] NRBC Absolute 0.000 0.000 - 0.000 x10(3)/ L [facility] Blood specimen (specimen) 03/03/2017 7:50 AM EDT 03/03/2017 8:03 AM EDT Narrative Resulting Agency Comment Spec In Lab Malika Chen MD HEMATOLOGY ORDERABL ES [facility] [place] [address] * (ABNORMAL) Comprehensive metabolic panel (non-fasting) (03/03/2017 [...] or in patients with acute kidney failure. [email or web address] Blood specimen (specimen) 03/03/2017 7:50 AM EDT 03/03/2017 8:03 AM EDT Narrative Resulting Agency Comment Spec In Lab Malika Chen MD [place] [address] documented in this encounter Visit Diagnoses Diagnosis Malignant neoplasm of left breast in female, estrogen receptor positive, unspecified site of breast documented in this encounter Care Teams Heel Boom Operator Relationship Specialty Start Date End Date Ana Her MD [address] [place] [address] PCP - General 07/29/13 documented as of this encounter
--- OUTSIDE RECORDS SUMMARY | 2024-05-30 11:18 | XMS_ITS | Encounter Summary ---
Author Organization [facility] [place] [address] Care Team Providers Care It Architect Name Role Phone Ana Her MD Primary Care Provider [phone] Encounter Details Date Type Department Care Team (Latest Contact Info) Description 02/25/2017 2:59 PM EDT - 02/25/2017 11:59 PM EDT Hospital En[place] [phone] Enzo Burkett MD Abnormal finding on breast [...] with invasive carcinoma. Enzo Burkett MD [facility] MAMMO ORDERABLES * Surgical Pathology Report (02/25/2017 3:01 PM EDT) Final Diagnosis [id number] ? Location: 3L The signing pathologist has [...] FISH. ??Direct analysis was performed using the Primedic Kit. ??Slide adequacy and signal enumeration were [...] factor receptor 2 testing in breast cancer: [place] [employer] of Clinical Oncology/College of [place] [employer]ologists clinical practice guideline update. J Clin Oncol. 2013 Nov . Reviewed by: Kyara Logan MD Tin Stacker, Molecular Pathology _ Electronically signed by: ??Epifanio Serra MD Verified: ??03/04/2017 ?Pathologist Performed at: ??-[facility] Dept. of Pathology, [place], [place] ? Addendum ADDENDUM DISCUSSION Immunohistochemist ry Studies Specimen: Left breast, core needle biopsy (A1) ER immunoreactivity: Positive ( ??>90% cancer cells with immunostaining) Stain intensity: Strong . ADDENDUM DISCUSSION MT immunoreactivity: Positive ( ??>90% cancer cells with [...] The assays were performed according to the soldering machine operator helper ' s instructions using Anti-ER (SP1) and Anti-MT (16) antibodies. Electronically signed by: ??Epifanio Serra MD Verified: ??02/27/2017 ?Pathologist Performed at: ??-[facility] Dept. 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 of Pathology, [place], [place] DISCUSSION Studies for ER, MT, and HER2 have been ordered; results will [...] g: (T4) ??elian 03/04/2017 2:01 PM EDT [facility] BREAST STRUCTURE / Unknown 02/25/2017 3:01 PM EDT 02/25/2017 3:01 PM EDT Enzo Burkett MD PATHOLOGY/CYTOLOGY O RDERABLES [facility] [place] [address] documented in this encounter Visit Diagnoses Diagnosis Abnormal finding on breast imaging Other (abnormal) findings on radiological examination of breast documented in this encounter Care Teams It Architect Relationship Specialty Start Date End Date Ana Her MD [address] [place] [address] PCP - General 07/29/13 documented as of this encounter
--- OUTSIDE RECORDS SUMMARY | 2024-05-30 11:18 | XMS_ITS | Encounter Summary ---
Author Organization [facility] Address [facility] [place] [address] Care Team Providers Care Drier And Grinder Tender Name Role Phone Unavailable Primary Care Provider Unavailabl e Encounter Details Date Type Department Care Team (Latest Contact Info) Description 12/08/2008 - 12/08/2008 11:59 PM EDT Hospital Encounter Radiology Library at [facility] [place] [address] Jackie Cisneros APRN [facility] [place] [address] Discharge Disposition: Home Social History Tobacco Use [...] Mammo (12/08/2008 12:00 AM EDT) Narrative [facility] - 02/23/2017 3:30 PM EDT This exam is for storage only and is auto-finalizing. Jackie Cisneros APRN IMG FILM LIBRARY ORD ERABLES NADINE Sethi documented in this encounter Visit Diagnoses Not on filedocumented in this encounter
--- OUTSIDE RECORDS SUMMARY | 2024-05-30 11:18 | XMS_ITS | Encounter Summary ---
Author Organization [facility] [place] [address] Care Team Providers Care Guide Dog Instructor Name Role Phone Ana Her MD Primary Care Provider [phone] Encounter Details Date Type Department Care Team (Late st Contact Info) Description 02/27/2017 Orders [place] [address] Malika Chen MD [facility] [place] [address] Malignant neoplasm of left breast in female, [...] or in patients with acute kidney failure. [email or web address] [email or web address] Blood specimen (specimen) 03/03/2017 7:50 AM EDT 03/03/2017 8:03 AM EDT Narrative Resulting Agency Comment Spec In Lab Malika Chen MD CHEMISTRY ORDERABLE S [facility] [place] [address] documented in this encounter Visit Diagnoses Diagnosis Malignant neoplasm of left breast in female, estrogen receptor positive, unspecified site of breast documented in this encounter Care Teams Guide Dog Instructor Relationship Specialty Start Date End Date Ana Her MD [address] [facility] [facility] [address] [place] [address] PCP - General 07/29/13 documented as of this encounter
--- OUTSIDE RECORDS SUMMARY | 2024-05-30 11:18 | XMS_ITS | Encounter Summary ---
Author Organization [facility] Address [address] [place] [address] Care Team Providers Care Stockkeeper Name Role Phone Unknown, Provider Primary Care Provider Unava ilable Encounter Details Date Type Department Care Team (Late st Contact Info) Description 01/20/2020 Lab Requisition [facility] Pathology & Laboratory Medicine - [facility] [address] [place] [address] Outr Resulting Lab, Provider Social History Tobacco [...] rt-PCR Result NEGATIVE Negative 01/21/2020 16:10 EDT [facility] Comment: 2019-novel Coronavirus (2019-nCoV) not [...] in accordance with CLIA regulations, College of [place] Pathologists (CAP) guidelines (Jul 21, 2019), and FDA guidance (Jul 02, 2019). This test is only for use under the Food and Drug Administration's Emergency Use Authorization. Swab ENTIRE NASOPHARYNX / Unknown 01/20/2020 10:30 EDT 01/20/2020 15:35 EDT us Provider Outr Resulting Lab MICROBIOLOGY - GENER AL ORDERABLES Final Result Performing Organization Address City/State/[facility] Co de Phone Number [facility] [place], [place] * COVID-19 TESTING (01/20/2020 10:30 EDT) COVID-19 rt-PCR Result NEGATIVE Negative 01/21/2020 17:21 EDT [facility] Comment: 2019-novel Coronavirus (2019-nCoV) not [...] in accordance with CLIA regulations, [employer] of [place] Pathologists (CAP) guidelines (Jul 21, 2019), and FDA guidance (Jul 02, 2019). This test is only for use under the Food and Drug Administration's Emergency Use Authorization. Performing Lab [facility] 01/21/2020 17:21 EDT [facility] Swab 01/20/2020 10:3 0 EDT 01/20/2020 15:35 EDT us Provider Outr Resulting Lab MICROBIOLOGY - GENER AL ORDERABLES Final Result [facility] [address] [place] [address] [facility] [place], [place] documented in this encounter Visit Diagnoses Not on filedocumented in this encounter Care Teams Stockkeeper Relationship Specialty Start Date End Date Unknown, Provider, PCP - General 01/13/14 documented as of this encounter
--- OUTSIDE RECORDS SUMMARY | 2024-05-30 11:18 | XMS_ITS | Encounter Summary ---
Author Organization [facility] Address [facility] [place] [address] Care Team Providers Care Acquisition Associate Name Role Phone Ana Her MD Primary Care Provider [phone] Encounter Details Date Type Department Care Team (Latest Contact Info) Description 02/12/2017 - 02/12/2017 11:59 PM EDT Hospital Encounter Radiology Library at [facility] [place] [address] Maryam Yee MD [facility] [place] [address] Screening breast examination Discharge Disposition: Home Social [...] (02/12/2017 12:00 AM EDT) Narrative [facility] - 02/19/2017 1:47 PM EDT This exam is for storage only and is auto-finalizing. Maryam Yee MD IMG FILM LIBRARY O RDERABLES Performing Organization Address City/State/[facility] Co de Phone Number [place], [place] documented in this encounter Visit Diagnoses Diagnosis Screening breast examination Other screening breast examination documented in this encounter Care Teams Acquisition Associate Relationship Specialty Start Date End Date Ana Her MD [address] [place] [address] PCP - General 07/29/13 documented as of this encounter
--- OUTSIDE RECORDS SUMMARY | 2024-05-30 11:18 | XMS_ITS | Encounter Summary ---
[place] [address] Care Team Providers Care Brand Analyst Name Role Phone Ana Her MD Primary Care Provider [phone] Reason for Visit * Reason Comments Low Back Pain Encounter Details Date Type Department Care Team (Late st Contact Info) Description 08/30/2014 8:35 AM EDT Office [place] [phone] Michelle Hurtado APRN [facility] [place] [address] Neurogenic claudication due to lumbar spinal stenosis [...] this encounter Progress Notes * Michelle Hurtado, FOREIGN POLICY OFFICER - 08/30/2014 9:37 AM EDT CHIEF COMPLAINT: [...] activity. 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 MEDICATIONS & ALLERGIES: [...] care of this patient. Michelle Hurtado MS, FOREIGN POLICY OFFICER, UTILITY BILL COLLECTOR-C [facility] documented in this encounter Plan of Treatment Not on file documented as of this encounter Visit Diagnoses Diagnosis Neurogenic claudication due to lumbar spinal stenosis Spinal stenosis, lumbar region, with neurogenic claudication documented in this encounter Care Teams Brand Analyst Relationship Specialty Start Date End Date Ana Her MD [address] [place] [address] PCP - General 07/29/13 documented as of this encounter
--- OUTSIDE RECORDS SUMMARY | 2024-05-30 11:18 | XMS_ITS | Encounter Summary ---
[place] [address] Care Team Providers Care Boiler Riveter Name Role Phone Ana Her MD Primary Care Provider Encounter Details Date Type Department Care Team (Late st Contact Info) Description 07/26/2013 [place] [address] Ana Her MD [facility] [address] [place] [address] Social History Tobacco Use Types Packs/Day Years [...] is a Non-reportable exam Ana Her MD [facility] FILM LIBRARY ORD ERABLES documented in this encounter Visit Diagnoses Not on filedocumented in this encounter Care Teams Boiler Riveter Relationship Specialty Start Date End Date Ana Her MD [address] [place] [address] PCP - General 07/29/13 documented as of this encounter
--- OUTSIDE RECORDS SUMMARY | 2024-05-30 11:18 | XMS_ITS | Encounter Summary ---
Author Organization [facility] [place] [address] Care Team Providers Care Compotype Operator Name Role Phone Ana Her MD Primary Care Provider [phone] Encounter Details Date Type Department Care Team (Late st Contact Info) Description 08/16/2014 Orders Only Functional Caodaism Program at [facility] [address] [place] [address] Khari Martínez MD Social History Tobacco Use [...] on filedocumented in this encounter Care Teams Compotype Operator Relationship Specialty Start Date End Date Ana Her MD [facility] [address] [facility] [place] [address] PCP - General 07/29/13 documented as of this encounter
--- OUTSIDE RECORDS SUMMARY | 2024-05-30 11:18 | XMS_ITS | Encounter Summary ---
Author Organization [facility] [place] [address] Care Team Providers Care Aerial Lineman Name Role Phone Ana Her MD Primary Care Provider [phone] Encounter Details Date Type Department Care Team (Latest Contact Info) Description 02/25/2017 1:31 PM EDT Hospital [place] [address] Maryam Yee MD [facility] [place] [address] Abnormal mammogram Discharge Disposition: Home Social History [...] unspecified documented in this encounter Care Teams Aerial Lineman Relationship Specialty Start Date End Date Ana Her MD [address] [place] [address] PCP - General 07/29/13 documented as of this encounter
--- OUTSIDE RECORDS SUMMARY | 2024-05-30 11:18 | XMS_ITS | Encounter Summary ---
Author Organization [facility] Address [facility] [place] [address] Care Team Providers Care Buyer Intern Name Role Phone Ana Her MD Primary Care Provider [phone] Encounter Details Date Type Department Care Team (Latest Contact Info) Description 02/23/2017 3:50 PM EDT - 02/23/2017 11:59 PM EDT Hospital Encounter Radiology Library at [place] [phone] Jackie Cisneros APRN [address] [place] [address] Left breast mass Discharge Disposition: Home Social [...] recommended. Please note: The interpretation of the [facility] Breast Imaging Radiologist subspecialist may differ from the original radiologists interpretation. This is usually not due to a deficiency of the original interpreting radiologist, rather due to the greater skill level afforded by sub-specialization in the field and/or reasonable variations in interpretations. If you have a concern regarding the D-H interpretation you may contact the [facility] Breast Director Of Capital Giving Office at . I have personally reviewed [...] the care of this patient. STUDIES FROM: [facility] DATES: Screening mammogram 02/12/2017, diagnostic [...] alter the care of thispatient. STUDIES FROM: [facility] DATES: Screening mammogram 02/12/2017, diagnostic [...] recommended. Please note: The interpretation of the [facility] BreastImaging Radiologist subspecialist may differ from the original radiologists interpretation. This is usually not due to a deficiency of the original interpreting radiologist, rather due to the greater skill level affordedby sub-specialization in the field and/or reasonable variations ininterpretations. If you have a concern regarding the D-H interpretation you may [facility] Breast Director Of Capital Giving Office at . I have personally reviewed the image(s) and the residents interpretationand agree with the findings, ROBERT THOMPSON at 02/24/2017 8:41 AM 8:41 AM Jackie Cisneros [facility] OUTSIDE INTERPRE TATION ORDERABLES documented in this encounter Visit Diagnoses Diagnosis Left breast mass Lump or mass in breast documented in this encounter Care Teams Buyer Intern Relationship Specialty Start Date End Date Ana Her MD [address] [place] [address] PCP - General 07/29/13 documented as of this encounter
--- OUTSIDE RECORDS SUMMARY | 2024-05-30 11:18 | XMS_ITS | Encounter Summary ---
[place] [address] Care Team Providers Care Alcohol And Drug Counselor Name Role Phone Ana Her MD Primary Care Provider [phone] Encounter Details Date Type Department Care Team (Latest Contact Info) Description 03/30/2017 7:27 AM EST - 03/30/2017 1:37 PM EST Hospital En[place] [phone] Brant Chen MD [facility] [place] [address] Discharge Disposition: Home Social History Tobacco Use [...] shower 24 hours Activity as tolerated Call [phone] with any questions Do not soak incision [...] Alma Delia had a bone scan in [place] which was read as possible metastasis in the left tibia. Of note- she fractured this area recently. She has recovered well. ?? PMH HNT NIDDM not on meds Spinal stenosis Fractured left tibial plateau December, GERD ?? FH: Maternal first cousin with breast cancer Brother with rectal cancer Sister with PE ? SH: lives alone. Has good support from sisters who live in [place]. Non smoker. Has a son who lives [...] Chen MD - 03/30/2017 12:27 PM EST [facility] Operative Note Patient Name: Digna Olson : [id number] MR#: [id number] Case Date: 03/30/2017 Surgeon: Surgeon(s) and Role: [...] [place] [address]. Remaining count within the axilla was 1982. [...] MD PATHOLOGY/CYTOLOGY ORDERABLES [facility] [place] [address] * Specimen to Pathology (surgical or derm) (03/30/2017 12:08 PM EST) AP Specimen 03/30/2017 12:0 8 PM EST 03/30/2017 12:08 PM EST Narrative [facility] - 03/30/2017 12:08 PM EST Specimen requisition ordered. ??Separate Pathology report to follow Brant Chen MD PATHOLOGY/CYTOLOGY ORDERABLES Performing Organization Address [facility] [place] [address] * Specimen to Pathology (surgical or derm) (03/30/2017 12:00 PM EST) AP Specimen 03/30/2017 12:0 0 PM EST 03/30/2017 12:00 PM EST Narrative [facility] - 03/30/2017 12:00 PM EST Specimen requisition ordered. ??Separate Pathology report to follow Brant Chen MD PATHOLOGY/CYTOLOGY ORDERABLES Performing Organization Address [facility] Co de Phone Number [place] [phone] * Specimen to Pathology (surgical or derm) (03/30/2017 11:51 AM EST) AP Specimen 03/30/2017 11:5 1 AM EST 03/30/2017 11:51 AM EST Narrative [facility] - 03/30/2017 11:51 AM EST Specimen requisition ordered. ??Separate Pathology report to follow Brant Chen MD PATHOLOGY/CYTOLOGY ORDERABLES Performing Organization Address [facility] [place] [address] * Surgical Pathology Report (03/30/2017 11:50 AM EST) Final Diagnosis [id number] ? Location: [facility]; [facility]; A The signing pathologist has (i) examined the relevant preparation(s) for the specimen(s) and (ii) rendered or confirmed the diagnosis(es). . ?Surgical Pathology DIAGNOSIS A,B - See Synoptic C - Left breast, Deep/lateral margin re-excision - ?Benign fatty breast tissue. D - Left breast, Superficial margin re-excision - ?Benign fatty breast tissue. See Note Note - Meacham ink (indicating additional cranial margin) is also present on this superficial margin re-excision. ---- Specimen Parts: ?? A - Left axilliary sentinel node B - Left breast partial mastectomy Specimen ? Procedure: ??Excision with image-guided localization ? Lymph Node Sampling: ?? [place] lymph node(s) ? Specimen Laterality: ?? Left [...] not present in specimen Lymph Nodes ? [place] Lymph Nodes: ?? [place] lymph node biopsy performed ? Number of [place] Nodes Examined: ?3 ? Number of Lymph [...] Chávez DO Verified: ??04/01/2017 ?Pathologist Performed at: ??-[facility] Dept. of Pathology, [place], [place] CLINICAL INFORMATION Specimen Submitted: A - [...] 0.8 x 0.4 x 0.4 cm. Color: [place] and yellow. Consistency: Soft. Location: Slices III and IV. Nearest Margin: 0.6 cm to the cranial margin. Other Margins: 0.8 cm to the deep margin, 1.0 cm to the superficial margin, ? > 2 cm from all other margins. OTHER Parenchyma: Predominately fatty with scant fibrous tissue. Wire/Clip: Biopsy marker clip identified within slice IV. SECTIONS/PROCESSI NG: (1) sales support representative slice I, lateral margin; (2) slice III, lesion to cranial margin; (3-5) remainder of slice III; (6) slice IV, lesion to cranial margin (clip); (7-8) remainder of slice IV; (9) sales support representative slice V; (10) sales support representative slice X, medial margin. (R10) Ischemic [...] MD PATHOLOGY/CYTOLOGY ORDERABLES [facility] [place] [address] * Mammo Direct Digital Left (03/30/2017 9:15 [...] Routine documented in this encounter Care Teams Alcohol And Drug Counselor Relationship Specialty Start Date End Date Ana Her MD [address] [place] [address] PCP - General 07/29/13 documented as of this encounter
--- OUTSIDE RECORDS SUMMARY | 2024-05-30 11:18 | XMS_ITS | Referral Summary ---
Author Organization [facility] Address [address] [place] [address] Care Team Providers Care Sanitation Superintendent Name Role Phone Unknown, Provider MD Primary Care Provider Unava ilable Social History Tobacco Use Types Packs/Day Years Used Date Smoking Tobacco: Never Assessed Comments Unknown Sex and Gender Information Value Date Recorded Sex Assigned at Not on file Legal Sex Female 9:32 EDT Gender Identity Not on file Sexual Orientation Not on file Plan of Treatment Not on file Care Teams Sanitation Superintendent Relationship Specialty Start Date End Date Unknown, Provider, PCP - General 01/13/14
--- OUTSIDE RECORDS SUMMARY | 2024-05-30 11:18 | XMS_ITS | Encounter Summary ---
[place] [address] Care Team Providers Care Filling Separator Name Role Phone Ana Her MD Primary Care Provider [phone] Reason for Visit * Reason Comments Low Back Pain Bilateral Hip Pain when standing or wal jaquelin Encounter Details Date Type Department Care Team (Late st Contact Info) Description 09/12/2014 11:20 AM EDT Office [place] [phone] Kris Benoit MD Neurogenic claudication due to [...] pain free. Lumbar MRI from 08/16/2014 from [facility] is notable for multilevel degenerative changes L2-L3, L3-L4, L4-L5, L5-S1. At L2-L3, she has [id number] spinal stenosis, but she has no leg [...] claudication documented in this encounter Care Teams Filling Separator Relationship Specialty Start Date End Date Ana Her MD [address] [place] [address] PCP - General 07/29/13 documented as of this encounter
--- OUTSIDE RECORDS SUMMARY | 2024-05-30 11:18 | XMS_ITS | Encounter Summary ---
Author Organization [facility] Address [address] [place] [address] Care Team Providers Care Information Systems Technician Name Role Phone Unknown, Provider Primary Care Provider Unava ilable Encounter Details Date Type Department Care Team (Late st Contact Info) Description 03/17/2017 Results Only [facility] [phone] Kat Lazaro MD [facility] [address] [place], [place] [phone] Social History Tobacco Use Types Packs/Day Years [...] ? DIGNA KIMBROUGH ? Accession #: ? [id number] ? : ? 1945 (Age: 71) ??F [...] (ASCP) 03/18/2017 8:14 AM End of Report [facility] 03/17/2017 16:1 5 EST 03/17/2017 16:15 EST us Kat Lazaro MD PATHOLOGY ORDERABLES Fin al Result [facility] [address] [place] [address] documented in this encounter Visit Diagnoses Not on filedocumented in this encounter Care Teams Information Systems Technician Relationship Specialty Start Date End Date Unknown, Provider, PCP - General 01/13/14 documented as of this encounter
--- OUTSIDE RECORDS SUMMARY | 2024-05-30 11:18 | XMS_ITS | Encounter Summary ---
Author Organization [facility] Address [facility] [place] [address] Care Team Providers Care Insurance Claims Supervisor Name Role Phone Ana Her MD Primary Care Provider [phone] Encounter Details Date Type Department Care Team (Latest Contact Info) Description 04/24/2014 - 04/24/2014 11:59 PM EST Hospital Encounter Radiology Library at [facility] [place] [address] Maryam Yee MD [facility] [place] [address] Screening breast examination Discharge Disposition: Home Social [...] Mammo (04/24/2014 12:00 AM EST) Narrative [facility] - 02/19/2017 1:46 PM EDT This exam is for storage only and is auto-finalizing. Maryam Yee MD IMG FILM LIBRARY O RDERABLES [place], [place] documented in this encounter Visit Diagnoses Diagnosis Screening breast examination Other screening breast examination documented in this encounter Care Teams Insurance Claims Supervisor Relationship Specialty Start Date End Date Ana Her MD [address] [facility] [address] [place] [address] PCP - General 07/29/13 documented as of this encounter
--- OUTSIDE RECORDS SUMMARY | 2024-05-30 11:18 | XMS_ITS | Encounter Summary ---
Author Organization [facility] Address [facility] [place] [address] Care Team Providers Care Forming Roll Operator Name Role Phone Ana Her MD Primary Care Provider [phone] Encounter Details Date Type Department Care Team (Latest Contact Info) Description 10/28/2016 - 10/28/2016 11:59 PM EDT Hospital Encounter Radiology Library [place] [facility] [address] Ricky Lowry MD Discharge Disposition: Home Social [...] DXA Images (10/28/2016 12:00 AM EDT) Narrative [facility] - 04/24/2017 2:13 PM EST This exam is for storage only and is auto-finalizing. Ricky Lowry MD IMG FILM LIBRARY ORD ERABLES Performing Organization Address City/State/[facility] Co de Phone Number [place], [place] documented in this encounter Visit Diagnoses Not on filedocumented in this encounter Care Teams Forming Roll Operator Relationship Specialty Start Date End Date Ana Her MD [address] [place] [address] PCP - General 07/29/13 documented as of this encounter
--- OUTSIDE RECORDS SUMMARY | 2024-05-30 11:18 | XMS_ITS | Encounter Summary ---
[place] [address] Care Team Providers Care Director Nursery School Name Role Phone Ana Her MD Primary Care Provider [phone] Encounter Details Date Type Department Care Team (Late st Contact Info) Description 02/27/2017 Telephone Hematology [place] [phone] Argentina Sanchez RN Social History Tobacco Use [...] a 71 y.o. 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 Alma Delia sounds positive and has support. She will have someone accompany her to appointments. She appears to be coping well but is anxious to meet with a breast surgeon to determine a treatment plan. Alma Delia have a bone SPECT done 1-2 months ago at [facility] and her doctor there questioned an area [...] her review (a link to the [facility] Early Stage Breast Cancer program). The Breast [...] filedocumented in this encounter Care Teams Director Nursery School Relationship Specialty Start Date End Date Ana Her MD [address] [place] [address] PCP - General 07/29/13 documented as of this encounter
--- OUTSIDE RECORDS SUMMARY | 2024-05-30 11:18 | XMS_ITS | Encounter Summary ---
Author Organization [facility] Address [facility] [place] [address] Care Team Providers Care Bottle Tester Name Role Phone Unavailable Primary Care Provider Unavailabl e Encounter Details Date Type Department Care Team (Latest Contact Info) Description 12/19/2009 - 12/19/2009 11:59 PM EDT Hospital Encounter Radiology Library at [facility] [place] [address] Jackie Cisneros APRN [facility] [place] [address] [place] [address] Discharge Disposition: Home Social History Tobacco Use [...] Only Mammo (12/19/2009 12:00 AM EDT) Narrative [facility] - 02/23/2017 3:29 PM EDT This exam is for storage only and is auto-finalizing. Jackie Cisneros APRN IMG FILM LIBRARY ORD ERABLES NADINE Sethi documented in this encounter Visit Diagnoses Not on filedocumented in this encounter
--- OUTSIDE RECORDS SUMMARY | 2024-05-30 11:18 | XMS_ITS | Encounter Summary ---
Author Organization [facility] [place] [address] Care Team Providers Care Clinical Psychology Teacher Name Role Phone Ana Her MD Primary Care Provider [phone] Encounter Details Date Type Department Care Team (Late st Contact Info) Description 03/03/2017 Notes [place] [address] January Ward MSW Social History Tobacco Use Types Packs/Day Years Used Date Smoking Tobacco: Never Smokeless Tobacco: Never Sex and Gender Information Value Date Recorded Sex Assigned at Not on file Gender Identity Not on file Sexual Orientation Not on file documented as of this encounter Progress Notes * January Ward MSW - 03/03/2017 12:56 PM EDT OFFICE OF CARE MANAGEMENT/CONTINUING HULLER OPERATOR Reason for referral: Digna Olson is a 71 year old, female who was seen in the multidisciplinarybreast care clinic for a surgical consult as she was recently diagnosed with ER/OK+, left breast, invasive mucinous carcinoma. After meeting with Dr. Chen, pt has decided to have a lumpectomy/SLNB. If pt needs radiation therapy, she will receive it at the [facility]. [facility] met with pt to complete a psychosocial assessment and to explain my role in the breast program. Pt was encouraged to contact me if she has any questions or concerns. Living arrangements/social supports: Pt lives alone in [place], [place]. She has support from her family and is accompanied to today's appt by her sisters who live in [place]. Employment/Insurance/Finances: Pt is retired and receives Social [...] Antonia Oliva is the SW for the [facility]. Plan: [facility] will continue to follow pt to assess and assist with their psychosocial needs. DELONTE Moreno [facility]/[place] [phone] Pager #[phone] documented in this encounter Plan of Treatment Not on file documented as of this encounter Visit Diagnoses Not on filedocumented in this encounter Care Teams Clinical Psychology Teacher Relationship Specialty Start Date End Date Ana Her MD [address] [place] [address] PCP - General 07/29/13 documented as of this encounter
--- OUTSIDE RECORDS SUMMARY | 2024-05-30 11:18 | XMS_ITS | Encounter Summary ---
Author Organization [facility] Address [facility] [place] [address] Care Team Providers Care Fishing Reel Assembler Name Role Phone Unavailable Primary Care Provider Unavailabl e Encounter Details Date Type Department Care Team (Latest Contact Info) Description 01/29/2013 - 01/29/2013 11:59 PM EDT Hospital Encounter Radiology Library at [facility] [place] [address] Jackie Cisneros APRN [facility] [place] [address] [place] [address] Discharge Disposition: Home Social History Tobacco Use [...] Only Mammo (01/29/2013 12:00 AM EDT) Narrative [facility] - 02/23/2017 3:26 PM EDT This exam is for storage only and is auto-finalizing. Jackie Cisneros APRN IMG FILM LIBRARY ORD ERABLES NADINE Sethi documented in this encounter Visit Diagnoses Not on filedocumented in this encounter
--- OUTSIDE RECORDS SUMMARY | 2024-05-30 11:18 | XMS_ITS | Encounter Summary ---
[place] [address] Care Team Providers Care Incendiaries Supervisor Name Role Phone Ana Her MD Primary Care Provider [phone] Reason for Visit * Reason Comments Establish Care * Consultation (Routine) - Specialty Diagnoses / Procedures Referred By Christiano hackett Referred To Contact Hematology and Oncology Diagnoses Other abnormal and inconclusive findings on diagnostic imaging of breast abnormal mammo, left breast Jackie Cisneros, WENDY [address] [place] [address] [facility] [address] [place] [address] Referral ID Status Reason Start Date Expiration Date V isits Requested Visits Authorized [id number] Consult, Test & Treat Connection [facility] 02/17/2017 05/20/2017 6 6 Encounter Details Date Type Department Care Team (Late st Contact Info) Description 03/03/2017 9:00 AM EDT Office [place] [address] Malika Chen MD [facility] [place] [address] Argentina Sanchez, RN Malignant neoplasm [...] handout created by physical therapists at [facility]. 7. Breast Cancer Treatment Process care map [...] was obtained which revealed IDC which is ER/MO+, her2-. She has no known breast masses, no adenopathy, no nipple discharge. Alma Delia had a bone scan in [place] which was read as possible metastasis in the left tibia. Of note- she fractured this area recently. She has recovered well. PMH HNT NIDDM not on meds Spinal stenosis Fractured left tibial plateau December, GERD FH: Maternal first cousin with breast cancer Brother with rectal cancer Sister with PE SH: lives alone. Has good support from sisters who live in [place]. Non smoker. Has a son who lives [...] 71 yo female with radiographic stage I ER/MO+, HER2- IDC of the left breast. No [...] positive documented in this encounter Care Teams Incendiaries Supervisor Relationship Specialty Start Date End Date Ana Her MD [address] [place] [address] PCP - General 07/29/13 documented as of this encounter
--- OUTSIDE RECORDS SUMMARY | 2024-05-30 11:18 | XMS_ITS | Encounter Summary ---
Author Organization [facility] Address [address] [place] [address] Care Team Providers Care Librarian School Name Role Phone Unavailable Primary Care Provider Unavailabl e Encounter Details Date Type Department Care Team (Latest Contact Info) Description 01/10/2014 20:50 EDT - 01/10/2014 23:59 EDT Hospital Encounter [facility] [address] [place] [address] Unknown, Provider, MD Discharge Disposition: Home or [...] Code Departure Means Destination Home or Self Jail documented in this encounter Plan of Treatment Not on file documented as of this encounter Visit Diagnoses Not on filedocumented in this encounter
--- OUTSIDE RECORDS SUMMARY | 2024-06-01 10:00 | XMS_ITS ---
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) Active confirmed Vital Signs Weight 170 lbs 02/16/2024 Height 5ft 4in in 02/16/2024 BMI 29.18 02/16/2024 Encounters Encounter Location Date Provider Diagnosis [facility] [address] [place], [place] [id number] 02/16/2024 VIKTOR SANCHEZ Ingrowing nail L60.0 ; [...] Notes * KODY KIMBROUGHDOB:1945 (78 yo F)Acc No.[id number]:02/16/2024 New Patient Notes Patient:?KODY KIMBROUGH Provider:?Gloria Sanchez D.P.M., Tangela Gonzalez :1945???Age:78 Y???Sex:Female D ate:02/16/2024 Address:[address] [place], [place] [id number] Pcp:RANDA MORATAYA Subjective: * Chief Complaints: * [...] Electronic signature of NUVIA SANCHEZ DPM on 06/01/2024 at 09:59 AM EST Sign off status: Pending * Provider:?Gloria Sanchez D.P.M., Osvaldo.[email or web address]. Date:?02/16/2024 Generated for Rayshawn salazar/Kailyn/eTransmitting on:?06/01/2024 09:59 AM EST History and Physical Notes * [...]
--- OUTSIDE RECORDS SUMMARY | 2024-06-01 10:00 | XMS_ITS | Patient Health Record ---
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) Active confirmed Vital Signs Height 5ft 4in in 02/16/2024 Weight 170 lbs 02/16/2024 BMI 29.18 02/16/2024 Encounters Encounter Location Date Provider Diagnosis [facility] [email or web address] [place], [place] [id number] 02/16/2024 VIKTOR SANCHEZ Ingrowing nail L60.0 ; [...] Date MEDICARE [address] [place] [phone] [id number] KODY KIMBROUGH Self - patient is the insured [facility] [address] [place] [address] [id number] KODY KIMBROUGH Self - patient is the insured Medical (General) History Medical History History ICD Code DIABETES ARTHRITIS ANEMIAHIGH B.P. CANCER GOUT HEART SISEASE ANKLE SPRAINS Surgical History Surgery Date(Month/Year) RT. ANKLE L. 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
--- OUTSIDE RECORDS SUMMARY | 2024-06-01 10:01 | XMS_ITS | Continuity of Care Document ---
Author Organization [place] [facility], [facility] [place] [address] Care Team Providers Care Registered Representative Name Role Phone GABINODC Concrete Pump Operator [facility] Orthopedic Surgeon [phone] [facility] Sleep Medicine [facility] PODIATRY Life Insurance Salesperson Assessment No assessment recorded. Plan of Treatment Reminders Order Date Submit Date Provider Last Modified By Organization Details Last Modified Time Details Appointments None recorded. Lab BMP, serum or plasma 2023 024 [facility] (Registration ), [address] [place] [address] [place], [address], 4 11:42:49 vitamin D, 25-hydroxy , total, serum 2023 024 [facility] (Registration ), [address] [place] [address] [place], [address], 4 16:09:19 HbA1c (hemoglobi n A1c), blood 2023 024 [facility] (Registration ), [address] [place] [address] [place], [address], 4 11:39:49 TSH, serum, reflex free T4 2023 024 [facility] (Registration ), [address] [place] [address] [place], [address], 4 11:40:25 CBC 2023 024 [facility] (Registration ), [address] [place] [address] [facility] [place], [address], 4 15:08:25 ferritin, serum or plasma 2023 024 [facility] (Registration ), [address] [place] [address] [place], [address], 4 11:41:22 iron + total iron-lynn ng capacity (TIBC), serum 2023 024 [facility] (Registration ), [address] [place] [address] [place], [address], 4 11:43:17 Referral None recorded. Procedures None [...] humeral fracture 2023- MD [address], [place], [address] , [facility] 4 17:34:10 Hypothyr oidism 82566434 Active 1959 EVIE shaw, [facility] 4 10:29:59 Essentia l hyperten jsaon 64178418 Active 1959 EVIE shaw, [facility] 4 10:29:36 Hyperlip idemia 69056150 Active 1959 on statin MD [address], [place], [address] , [facility] 4 20:35:18 Spinal stenosis of lumbar region 75695983 Active 2012 s/p lumbar foramino parish L4 MD [address], [place], [address] , [facility] 4 20:36:41 Sleep apnea 64185643 Active 2012 on CPAP MD [address], [place], [address] , [facility] 4 20:39:31 Gastroes ophageal reflux disease without esophagi tis 421079405 Completed 195908/12/2023 Removal Reason: resolved with surgical repair of HH MD [address], [facility] [address] , [facility] 4 10:41:24 Family history of malignan t neoplasm of digestiv e organ 990992085 Active [address], [place], [address] , [facility] 4 20:37:03 Paresthe samir 59208935 Completed 201412/01/2014 11/28/19 15 - Comments only - Ana Wade MD - check B12 and folate Problem Code: R20.2; Problem Code Type: ICD-10; Not Available [facility] 3 05:53:48 Adult health examinat ion Active [address], [place], [address] , [facility] 4 20:33:34 Pre-surg ruben evaluati [...] Z01.818; Problem Code Type: ICD-10; Not Available [facility] 3 05:53:48 Localize d edema 742191256 Completed 201501/29/2016 12/13/19 16 - Comments only - Ana Wade MD - and some on left as well, will check BMP. 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 Nusrat esparza for removal. Problem Code: L72.3; Problem Code Type: ICD-10; Not Available [facility] 3 05:53:49 Chronic ulcer of foot 931688118 Completed 201601/16/2017 12/18/19 17 - Comments only - Ana Wade MD - Due to injury. This does appear to have some granulat ion tissue and to be healing. She is given a prescrip tion for Keflex to take only if erythema seems to be extendin g. Problem Code: L97.509; Problem Code Type: ICD-10; Not Available [facility] 3 05:53:49 Diarrhea 17110321 Completed 201602/10/2017 02/05/20 17 - Comments only - Ana Wade MD - Persiste nt over several months, we will collect stool for C. difficil e, Giardia, culture, and lactofer rin Problem Code: R19.7; Problem Code Type: ICD-10; ANA WADE MD [address], [place], [address] , [facility] 4 21:03:03 Polyp of cervix 59714719 Active 2016 EVIE shaw, [facility] 4 10:32:21 Primary malignan t neoplasm of female breast 51835255 Active 2016 invasive mucinous intermed iate grade, s/p partial mastecto my, on Anastraz ole. 6 mm PT1NO E2P2 poistive , HER2 negative ANA WADE MD [address], [place], [address] , [facility] 4 20:38:49 Pain in left lower limb 865452319 Active 2016 EVIE shaw [facility], [facility]. 4 10:32:00 Pain in thoracic spine 050192209 Active 2016 EVIE shaw [facility], [facility]. 4 10:32:06 Spasm 80027260 Active 2017 EVIE shaw [facility]. 4 10:33:28 Abdomina l distensi on, gaseous 879866499 Completed 201703/08/2018 Problem Code: R14.0; Problem Code Type: ICD-10; Not Available [facility] 3 05:53:50 Cellulit is of toe 93974296 Completed 201808/12/2018 Problem Code: L03.039; Problem Code Type: ICD-10; Not Available [facility] 3 05:53:51 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 2018 Danica shaw, [facility] 4 14:36:02 Tachycar lea 1758761 Completed 201811/25/2018 Problem Code: R00.0; Problem Code Type: ICD-10; Not Available [facility] 3 05:53:51 Pre-surg ruben evaluati on Completed 201811/25/2018 Problem Code: Z01.818; Problem Code Type: ICD-10; Not Available [facility] 3 05:53:51 Iron deficien cy anemia 79428936 Active 2019 elevated MCV: normal B12 2021, normal folate 2018 IV iron 2023 EGD 01/2022 paraesop hageal hernia (since repaired ) colo 03/2017 normal ANA WADE MD [address], [place], [address] , [facility] 4 11:44:45 Lumbago with sciatica 298015658 Completed 201903/16/2020 02/24/20 20 - Comments only - Vy Araujocarol Pinon MOLD MAKER APPRENTICE - Likely aggravat ed by increase d [...] Not Available [facility] 3 05:53:52 Right side sciatica 27312519819 9101 Active 2019 EVIE shaw, [facility] 4 10:33:09 Left side sciatica 45467645107 9104 Active [address], [place] [address] , [facility] 4 17:20:20 Diaphrag matic hernia 12729191 Completed 202108/11/2023 Removal Reason: s/p repair MD [address], [place] [address] , [facility] 4 20:50:39 History of SARS-CoV -2 09804668137 2759706 Completed 202104/04/2022 03/21/20 22 - Comments only - Ana Wade MD - testing is negative today in the office. Still some fatigue but otherwis e recoveri ng. Did get MAB. Already had covid bivalent booster prior to illness Problem Code: Z86.16; Problem Code Type: ICD-10; Not Available [facility] 3 05:53:53 Diarrhea 15963066 Completed 202104/18/2022 Problem Code: R19.7; Problem Code Type: ICD-10; MD [address], [facility] [address] , [facility] 4 21:03:02 Radhain g mammogreduardo phy Completed 202208/11/[address], [facility] [address] , [facility] 4 20:36:56 Carpal tunnel syndrome of left wrist 78289515060 9102 Completed 202201/23/2023 Problem Code: G56.02; Problem Code Type: ICD-10; Not Available [facility] 4 05:37:46 Diarrhea 47391695 Active 2022 started colestip ol 01/[address], [place], [address] , [facility] 4 21:03:02 Carpal tunnel syndrome of right wrist 42119673149 9108 Completed 201803/19/2020 Problem Code: G56.01; Problem Code Type: ICD-10; Not Available [facility] 3 05:53:55 Pain of left knee joint 47806723096 4107 Completed 202107/30/2022 Problem Code: M25.562; Problem Code Type: ICD-10; Not Available [facility] 3 05:53:55 Hypersom korina 87496820 Completed 201311/27/2014 Problem Code: 780.54; Problem Code Type: ICD-9; Not Available [facility] 3 05:53:56 Screenin g for disorder Completed 201909/11/2021 Problem Code: Z13.9; Problem Code Type: ICD-10; Not Available [facility] 3 05:53:56 Anemia 228429818 Completed 201903/19/2020 Problem Code: D64.9; Problem Code Type: ICD-10; Not Available [facility] 3 05:53:56 Long-ter m current use of anticoag ulant 077872262 Completed 201709/01/2018 Problem Code: Z79.01; Problem Code Type: ICD-10; Not Available [facility] 3 05:53:57 Chronic rhinitis 74645432 Completed 202108/12/2021 Problem Code: J31.0; Problem Code Type: ICD-10; Not Available [facility] 3 05:53:57 Impaired fasting glycemia 718624614 Completed 201401/28/2023 Not Available [facility] 3 05:53:57 Fatigue 19765759 Completed 201903/19/2020 Problem Code: R53.83; Problem Code Type: ICD-10; Not Available [facility] 3 05:53:58 Upper respirat ory tract infectio n caused by Influenz a A 22850404674 9104 Completed 201707/02/2017 Problem Code: J09.x2; Problem Code Type: ICD-10; Not Available [facility] 3 05:53:59 Diarrhea 99568402 Completed 201709/01/2018 ANA WADE MD [address], [place], [address] [facility] 4 21:03:02 Acute upper respirat ory infectio n 23238874 Completed 202108/26/2021 Problem Code: J06.9; Problem Code Type: ICD-10; Not Available [facility] 3 05:53:59 Pain in right foot 08593221494 9107 Completed 202207/30/2022 Problem Code: M79.671; Problem Code Type: ICD-10; Not Available [facility] 3 05:54:00 Breast composit ion 656148010 Completed 201601/28/2023 Not Available [facility] 3 05:54:00 Changes in skin texture 779928730 Completed 202207/30/2022 Problem Code: R23.4; Problem Code Type: ICD-10; Not Available [facility] 3 05:54:01 Spasm 21417983 Completed 201603/23/2017 Problem Code: R25.2; Problem Code Type: ICD-10; EVIE shaw [facility] 4 10:33:28 Hyperten sive disorder 35745095 Completed 11/28/19 15 - Comments only - Ana Wade MD - [facility] ed, no change in medicati ons Not Available [facility] 3 05:54:03 Arthralg ia of the ankle and/or foot 761245466 Completed 201501/30/2016 Problem Code: M25.571; Problem Code Type: ICD-10; Not Available [facility] 3 05:54:03 Dyspnea 564004514 Completed 201903/19/2020 Problem Code: R06.02; Problem Code Type: ICD-10; [facility] 4 14:39:47 Trigger finger of right hand 76066395782 570936 Completed 201803/19/2020 Problem Code: M65.341; Problem Code Type: ICD-10; Not Available [facility] 3 05:54:06 Cough 52932029 Completed 202108/12/2021 Problem Code: R05.1; Problem Code Type: ICD-10; Not Available [facility] 3 05:54:06 At risk - finding 035240287 Completed 201811/11/2018 Problem Code: Z91.89; Problem Code Type: ICD-10; Not Available [facility] 3 05:54:06 Cough 48387791 Completed 201706/15/2017 Problem Code: R05; Problem Code Type: ICD-10; Not Available [facility] 3 05:54:07 Preopera tive cardiova scular examinat ion Completed 202112/18/2021 Problem Code: Z01.810; Problem Code Type: ICD-10; Not Available [facility] 3 05:54:08 Arterial bruit 98905365 Completed 202109/11/2021 Not Available [facility] 3 05:54:08 Gastroes ophageal reflux disease 275838619 Completed Not Available [facility] 3 05:54:09 Imaging of musculos keletal system abnormal 909350153 Completed 201603/23/2017 Problem Code: R93.7; Problem Code Type: ICD-10; Not Available [facility] 3 05:54:10 Blood glucose outside referenc e range 580995280 Completed 201503/20/2016 Problem Code: R73.09; Problem Code Type: ICD-10; Not Available [facility] 3 05:54:10 Abdomina l aortic aneurysm 519409789 Completed 195912/04/2014 Not Available [facility] 3 05:54:11 Lung field abnormal 824298057 Completed 202109/11/2021 Problem Code: R91.8; Problem Code Type: ICD-10; Not Available [facility] 3 05:54:11 Ingrowin g nail 729286489 Completed 201503/23/2017 Problem Code: L60.0; Problem Code Type: ICD-10; Not Available [facility] 3 05:54:11 Hypokale karyn 77225092 Completed 201504/17/2016 Problem Code: E87.6; Problem Code Type: ICD-10; Not Available [facility] 3 05:54:12 Spasm 58666139 Completed 202201/23/2023 Problem Code: M62.838; Problem Code Type: ICD-10; EVIE shaw, [facility]. 4 10:33:28 Aneurysm of ascendin g aorta 782751891 Active [address], [place], [address] , [facility]. 4 19:24:51 Bicuspid aortic valve 30929213 Active 2023 severe by ECHO 07/[address], [place], [address] , [facility]. 4 19:33:10 Osteopen ia 467995142 Active 2023 EVIE shaw [facility]. 4 10:28:13 Venous stasis 58035617 Active 2023 EVIE shaw [facility]. 4 10:29:14 Chronic kidney disease 398029161 Active 2017 Stage 3bA1v eGFR 42-[address], [place], [address] [place] [address] , [facility] 4 20:49:29 Dyspnea on exertion 73117440 Active 2018 Danica Felix colin, [facility] 4 14:39:44 Hiatal hernia 43410291 Completed 202108/11/2023 lap repair MD [address], [place] [address] , [facility] 4 20:51:15 Edema of lower extremit y 469645225 Active [address], [place] [address] , [facility] 4 20:55:49 Atrial fibrilla tion 41769458 Active 2016 s/p pulmonoa ry vein isolatio n 05/2018, chronic anticoag ulation with Xarelto MD [address], [place], [place], [address] [place] [address] , [facility] 4 09:14:08 Obesity 602902611 Active [address], [place], [address] [place] [address] , [facility] 4 09:26:22 Cardiac pacemake r in situ 490741268 Active 2023 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 MD [address], [place] [address] , [facility] 4 09:13:49 Swelling of bilatera l lower limbs 886305440 Active [address], [place] [address] , [facility] 14:35:13 Problem Notes None recorded. Procedures Surgical History Date Name Laterality Status Provider Name and Address Organization Details Recorded Time 10/26/19 cardiac pacemaker procedure completed MD [address], [place], [address], [facility] 03/16/2024 16:33:27 10/20/19 transcatheter aortic valve implantation completed MD [address], [place], [address], [facility] 03/16/2024 16:32:53 Imaging Results None recorded. Procedure Notes None recorded. Medical Equipment None Reported. Allergies Allergen ID Allergen Name Allergen Category Reaction Reaction Severity Criticality Documentation Date Start Date Code Code System Note Provider Name and Address Organization Details Recorded Time 03044 amlodipin e medicatio n swelling severe high 11/18/2023 99358 RxNorm HIRA Hodge, [facility] [...] 1 tab by mouth daily 06/02 [facility] Not Available Not Available Not [...] Smoking Status Never Smoker KRYSTAL SKELTON LPN [facility], [place] - [facility]. 08/12/2023 07:44:55 Date Of Most Recent [...] And Wanted Help? (For Example, If You [place] Very Nervous, Lonely, Or Blue; Got Sick [...] Details Recorded Time Pneumococcal conjugate PCV20, polysaccharide EEC462 conjugate, adjuvant, PF 4 completed MD [address], [address] 08/12/2023 11:52:18 COVID-19, mRNA, LNP-S, PF, vanda-sucrose, 30 mcg/0.3 mL 4 completed MD [address], [facility] [address] 08/12/2023 11:52:18 COVID-19, mRNA, LNP-S, PF, vanda-sucrose, 30 mcg/0.3 mL 4 completed MD [address], [address] 03/04/2024 15:04:49 Tdap 1 completed Not Available [facility] 03/13/2023 06:18:37 Tdap 1 completed Not Available [facility] 03/13/2023 06:18:37 zoster live 5 completed Not Available [facility] 03/13/2023 06:18:37 Influenza, high-dose, trivalent, PF 8 completed Not Available [facility] 03/13/2023 06:18:38 Influenza, split virus, trivalent, preservative 6 completed Not Available [facility] 03/13/2023 06:18:38 Pneumococcal Conjugate, unspecified formulation 5 completed Not Available [facility] 03/13/2023 06:18:38 Influenza, split virus, quadrivalent, preservative 7 completed Not Available [facility] 03/13/2023 06:18:38 Influenza, high-dose, quadrivalent, PF 2 completed Not Available [facility] 03/13/2023 06:18:38 Influenza, high-dose, quadrivalent, PF 1 completed Not Available [facility] 03/13/2023 06:18:38 Influenza, high-dose, quadrivalent, PF 0 completed Not Available [facility] 03/13/2023 06:18:38 COVID-19, mRNA, LNP-S, PF, 100 mcg/0.5mL dose or 50 mcg/0.25mL dose 1 completed Not Available [facility] 03/13/2023 06:18:38 COVID-19, mRNA, LNP-S, PF, 100 mcg/0.5mL dose or 50 mcg/0.25mL dose 1 completed Not Available [facility] 03/13/2023 06:18:39 COVID-19, mRNA, LNP-S, PF, 100 mcg/0.5mL dose or 50 mcg/0.25mL dose 1 completed Not Available [facility] 03/13/2023 06:18:39 COVID-19, mRNA, LNP-S, bivalent, PF, 30 mcg/0.3 mL dose 2 completed Not Available [facility] 03/13/2023 06:18:39 pneumococcal polysaccharide PPV23 1 completed Not Available [facility] 03/13/2023 06:18:39 influenza, unspecified formulation 6 completed Not Available [facility] 03/13/2023 06:18:39 influenza, unspecified formulation 4 completed Not Available [facility] 03/13/2023 06:18:39 Influenza, high-dose, quadrivalent, PF 3 completed Not Available [facility] 05/15/2023 05:33:16 Past Encounters Encounter ID Performer Location Encounter Start Date Encounter Closed Date Diagnosis/Indication Diagnosis SNOMED-CT Code Diagnosis ICD10 Code Diagnosis Note [id number] Samantha Razo RN [address] [place] [address] 04/18/2024 10:14:04 04/18/2024 10:46:21 Osteoporotic fracture 18043059 M80.00XD Hypothyroidism 21026390 E03.9 Iron defic iency anemia 80084384 D50.9 Chronic ki dney disease 489337523 N18.9 Prediabetes 230360939 R7 3.03 Health Concerns Section Related Observation LastModified by Organization Detai ls LastModified Time None Recorded Concern Status LastModified by Organization Details LastModified Time None Recorded Payers Encounter Date Sequence Insurance Name Policy Number Policy Palacio Covered Member ID Palacio Member ID Guarantor Name 04/18/2024 1 [place] [employer] Digna Olson [id number] Digna Olson 04/18/2024 2 [place] [facility] [id number] Digna Olson [id number] Digna Olson OBGyn Episode No OBEpisode recorded.
--- OUTSIDE RECORDS SUMMARY | 2024-06-01 10:01 | XMS_ITS | Continuity of Care Document ---
Author Organization [place] [facility], [facility] Address Geovany [place]ung [place] [address] Care Team Providers Care Supply Clerk Name Role Phone GABINODC Display Decorator [facility] Orthopedic Surgeon [facility] Sleep Medicine [facility] Guest Relations Manager Assessment Encounter Date Assessment Date Assessment LastModified by Organization Details LastModified Time 05/23/2024 05/23/2024 The total time devoted to today's encounter, including both the [id number] time with the patient and/or family/caregi josefina and rya-[id number] patrick time I personally spent is 42 [...] at rehab and was negative. 2024 025 [facility], [address], [place], [address], 09:45:21 Procedures None recorded. Surgeries None recorded. Imaging None recorded. Medication Orders colestipol 1 gram tablet 2024 [facility], [address] [place] [address], [facility], [place], [address], 14:26:17 carvedilol 25 mg tablet 2024 [facility], [address] [place] [address], [facility], [place], [address], 14:26:15 Patient TargetsNo targets recorded. Patient InstructionsNo instructions recorded. 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 Chronic diarrhea You saw Alma [...] humeral fracture 2023- MD [address], [place], [address] , [facility] 4 17:34:10 Hypothyr oidism 64910328 Active 1959 EVIE shaw, [facility] 4 10:29:59 [facility] hyperten jason 06109211 Active 1959 EVIE shaw, [facility] 4 10:29:36 Hyperlip idemia 12404539 Active 1959 on statin MD [address], [place], [address] , [facility] 4 20:35:18 Spinal stenosis of lumbar region 88040011 Active 2012 s/p lumbar foramino parish L4 MD [address], [place], [address] , [facility] 4 20:36:41 Sleep apnea 83240608 Active 2012 on CPAP MD [address], [place], [address] , [facility] 4 20:39:31 Gastroes ophageal reflux disease without esophagi tis 890679014 Completed 195908/12/2023 Removal Reason: resolved with surgical repair of HH MD [address], [place], [address] , [facility] 4 10:41:24 Family history of malignan t neoplasm of digestiv e organ 515235394 Active [address], [place], [address] , [facility] 4 20:37:03 Paresthe samir 51245598 Completed 201412/01/2014 11/28/19 15 - Comments only - Ana Her MD - check B12 and folate Problem Code: R20.2; Problem Code Type: ICD-10; Not Available Critical access hospital 3 05:53:48 Adult health examinat ion Active [address], [place], [address] , [facility] 4 20:33:34 Pre-surg ruben evaluati on [...] access hospital 3 05:53:48 Localize d edema 199118495 Completed 201501/29/2016 12/13/19 16 - Comments only - Ana Her MD - and some on left as well, will check BMP. 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 Nusrat holt for removal. Problem Code: L72.3; Problem Code Type: ICD-10; Not Available Critical access hospital 3 05:53:49 Chronic ulcer of foot 205048958 Completed 201601/16/2017 12/18/19 17 - Comments only - Ana Her MD - Due to injury. This does appear to have some granulat ion tissue and to be healing. She is given a prescrip tion for Keflex to take only if erythema seems to be extendin g. Problem Code: L97.509; Problem Code Type: ICD-10; Not Available Critical access hospital 3 05:53:49 Diarrhea 48057812 Completed 201602/10/2017 02/05/20 17 - Comments only - Ana Her MD - Persiste nt over several months, we will collect stool for C. 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 6 mm PT1NO E2P2 poistive , HER2 negative MD [address], [place], [address] , [facility] 4 20:38:49 Pain in left lower limb 764883114 [facility] 10:32:00 Pain in thoracic spine 193640165 Active 2016 [facility] 4 10:32:06 Spasm 64897763 Active 2017 [facility] 4 10:33:28 Abdomina l distensi on, gaseous 889097195 Completed 201703/08/2018 Problem Code: R14.0; Problem Code Type: ICD-10; Not Available Critical access hospital 3 05:53:50 Cellulit is of toe 30651469 Completed 201808/12/2018 Problem Code: L03.039; Problem Code Type: ICD-10; Not Available [facility] 3 05:53:51 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 2018 [facility] 4 14:36:02 Tachycar lea 2720531 Completed 201811/25/2018 Problem Code: R00.0; Problem Code Type: ICD-10; Not Available [facility] 3 05:53:51 Pre-surg ruben evaluati on Completed 201811/25/2018 Problem Code: Z01.818; Problem Code Type: ICD-10; Not Available [facility] 3 05:53:51 Iron deficien cy anemia 42601493 Active 2019 elevated MCV: normal B12 2021, normal folate 2018 IV iron 2023 EGD 01/2022 paraesop hageal hernia (since repaired ) colo 03/[address] MD [address], [place], [address] , [facility], [facility]. 4 11:44:45 Lumbago with sciatica 337992842 Completed 201903/16/2020 02/24/20 20 - Comments only - Vy Pinon [employer] - Likely aggravat ed by increase d [...] M54.40; Problem Code Type: ICD-10; Not Available [facility] 3 05:53:52 Right side sciatica 75120419057 9101 Active 2019 EVIE HOOPER [facility] 4 10:33:09 Left side sciatica 53393282896 9104 Active [address], [place], [address] , [facility] 4 17:20:20 Diaphrag matic hernia 16867299 Completed 202108/11/2023 Removal Reason: s/p repair MD [address], [place], [address] , [facility] 4 20:50:39 History of SARS-CoV -2 [id number] 8880661 Completed 202104/04/2022 03/21/20 22 - Comments only - Ana Her MD - testing is negative today in the office. Still some fatigue but otherwis e recoveri ng. Did get MAB. Already had covid bivalent booster prior to illness Problem Code: Z86.16; Problem Code Type: ICD-10; Not Available [facility] 3 05:53:53 Diarrhea 27115900 Completed 202104/18/2022 Problem Code: R19.7; Problem Code Type: ICD-10; MD [address], [facility] [address] , [facility] 4 21:03:02 Screenin g mammogra phy Completed 202208/11/[address], [address] , [facility] 4 20:36:56 Carpal tunnel syndrome of left wrist 24639191464 9102 Completed 202201/23/2023 Problem Code: G56.02; Problem Code Type: ICD-10; Not Available Critical access hospital 4 05:37:46 Diarrhea 08939753 Active 2022 started colestip ol 01/[address], [facility] [address] , [facility] 4 21:03:02 Carpal tunnel syndrome of right wrist 94147556374 9108 Completed 201803/19/2020 Problem Code: G56.01; Problem Code Type: ICD-10; Not Available [facility] 3 05:53:55 Pain of left knee joint 31304859162 4107 Completed 202107/30/2022 Problem Code: M25.562; Problem Code Type: ICD-10; Not Available [facility] 3 05:53:55 Hypersom korina 21146110 Completed 201311/27/2014 Problem Code: 780.54; Problem Code Type: ICD-9; Not Available [facility] 3 05:53:56 Screenin g for disorder Completed 201909/11/2021 Problem Code: Z13.9; Problem Code Type: ICD-10; Not Available [facility] 3 05:53:56 Anemia 667191913 Completed 201903/19/2020 Problem Code: D64.9; Problem Code Type: ICD-10; Not Available [facility] 3 05:53:56 Long-ter m current use of anticoag ulant 729857342 Completed 201709/01/2018 Problem Code: Z79.01; Problem Code Type: ICD-10; Not Available [facility] hospital 3 05:53:57 Chronic rhinitis 00610949 Completed 202108/12/2021 Problem Code: J31.0; Problem Code Type: ICD-10; Not Available Critical access hospital 3 05:53:57 Impaired fasting glycemia 548718570 Completed 201401/28/2023 Not Available Critical access hospital 3 05:53:57 Fatigue 62559924 Completed 201903/19/2020 Problem Code: R53.83; Problem Code Type: ICD-10; Not Available [facility] 3 05:53:58 Upper respirat ory tract infectio n caused by Influenz a A 81888133453 9104 Completed 201707/02/2017 Problem Code: J09.x2; Problem Code Type: ICD-10; Not Available [facility] 3 05:53:59 Diarrhea 60839455 Completed 201709/01/2018 ANA HER MD [facility] [address], [place], [address] , [facility]. 4 21:03:02 Acute upper respirat ory infectio n 05842876 Completed 202108/26/2021 Problem Code: J06.9; Problem Code Type: ICD-10; Not Available Critical access hospital 3 05:53:59 Pain in right foot 65360510566 9107 Completed 202207/30/2022 Problem Code: M79.671; Problem Code Type: ICD-10; Not Available [facility] 3 05:54:00 Breast composit ion 859041722 Completed 201601/28/2023 Not Available [facility] 3 05:54:00 Changes in skin texture 744313055 Completed 202207/30/2022 Problem Code: R23.4; Problem Code Type: ICD-10; Not Available [facility] hospital 3 05:54:01 Spasm 12297574 Completed 201603/23/2017 Problem Code: R25.2; Problem Code Type: ICD-10; EVIE RUFUS shaw, [facility] 4 10:33:28 Hyperten sive disorder 47291475 Completed 11/28/19 15 - Comments only - Ana Her MD - [facility] ed, no change in medicati ons Not Available Critical access hospital 3 05:54:03 Arthralg ia of the ankle and/or foot 034930968 Completed 201501/30/2016 Problem Code: M25.571; Problem Code Type: ICD-10; Not Available [facility] hospital 3 05:54:03 Dyspnea 276884684 Completed 201903/19/2020 Problem Code: R06.02; Problem Code Type: ICD-10; Danica Sechadwick shaw, [facility] 4 14:39:47 Trigger finger of right hand 68686585421 854669 Completed 201803/19/2020 Problem Code: M65.341; Problem Code Type: ICD-10; Not Available [facility] 3 05:54:06 Cough 30826041 Completed 202108/12/2021 Problem Code: R05.1; Problem Code Type: ICD-10; Not Available [facility] hospital 3 05:54:06 At risk - finding 590294783 Completed 201811/11/2018 Problem Code: Z91.89; Problem Code Type: ICD-10; Not Available [facility] hospital 3 05:54:06 Cough 80325553 Completed 201706/15/2017 Problem Code: R05; Problem Code Type: ICD-10; Not Available [facility] access hospital 3 05:54:07 Preopera tive cardiova scular examinat ion Completed 202112/18/2021 Problem Code: Z01.810; Problem Code Type: ICD-10; Not Available [facility] hospital 3 05:54:08 Arterial bruit 91649157 Completed 202109/11/2021 Not Available Critical access hospital 3 05:54:08 Gastroes ophageal reflux disease 328052851 Completed Not Available [facility] access hospital 3 05:54:09 Imaging of musculos keletal system abnormal 979536486 Completed 201603/23/2017 Problem Code: R93.7; Problem Code Type: ICD-10; Not Available [facility] hospital 3 05:54:10 Blood glucose outside referenc e range 809789785 Completed 201503/20/2016 Problem Code: R73.09; Problem Code Type: ICD-10; Not Available Critical access hospital 3 05:54:10 Abdomina l aortic aneurysm 214375108 Completed 195912/04/2014 Not Available [facility] hospital 3 05:54:11 Lung field abnormal 319555479 Completed 202109/11/2021 Problem Code: R91.8; Problem Code Type: ICD-10; Not Available [facility] hospital 3 05:54:11 Ingrowin g nail 200937656 Completed 201503/23/2017 Problem Code: L60.0; Problem Code Type: ICD-10; Not Available [facility] hospital 3 05:54:11 Hypokale karyn 87399776 Completed 201504/17/2016 Problem Code: E87.6; Problem Code Type: ICD-10; Not Available [facility] hospital 3 05:54:12 Spasm 09463607 Completed 202201/23/2023 Problem Code: M62.838; Problem Code Type: ICD-10; EVIE shaw [facility] 4 10:33:28 Aneurysm of ascendin g aorta 073335053 Active [address], [place], [address] , [facility] 4 19:24:51 Bicuspid aortic valve 70707604 Active 2023 severe by ECHO 07/[address], [place], [address] , [facility] 4 19:33:10 Osteopen ia 260826124 Active 2023 EVIE shaw, [facility] 4 10:28:13 Venous stasis 28055766 Active 2023 EVIE shaw, [facility] 4 10:29:14 Chronic kidney disease 835399006 Active 2017 Stage 3bA1v eGFR 42-[address], [place], [address] , [facility] 4 20:49:29 Dyspnea on exertion 32707555 Active 2018 Danica chadwick shaw, [facility] 4 14:39:44 Hiatal hernia 57072210 Completed 202108/11/2023 lap repair MD [address], [place], [address] , [facility] 4 20:51:15 Edema of lower extremit y 818537645 Active [address], [place], [address] , [facility] 4 20:55:49 Atrial fibrilla tion 77492412 Active 2016 s/p pulmonoa ry vein isolatio n 05/2018, chronic anticoag ulation with Xarelto MD [address], [place], [address] , [facility] 4 09:14:08 Obesity 692537067 Active [address], [address] 4 09:26:22 Cardiac pacemake r in situ 172309842 Active 2023 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 MD [address], [address] 4 09:13:49 Swelling of bilatera l lower limbs 861128942 Active [address], [address] 14:35:13 Problem Notes None recorded. Procedures Surgical History Date Name Laterality Status Provider Name and Address Organization Details Recorded Time 10/26/19 cardiac pacemaker procedure completed MD [address], [address] 03/16/2024 16:33:27 10/20/19 transcatheter aortic valve implantation completed MD [address], [address] 03/16/2024 16:32:53 Imaging Results None recorded. Procedure Notes None recorded. Medical Equipment None Reported. Allergies Allergen ID Allergen Name Allergen Category Reaction Reaction Severity Criticality Documentation Date Start Date Code Code System Note Provider Name and Address Organization Details Recorded Time 61248 amlodipin e medicatio n swelling severe high 11/18/2023 49694 RxNorm Shaneka Herrera MA null, [facility] 13:47:28 Medications Name Sig Start [...] 1 tab by mouth daily 06/02 completed [employer] [facility] Not Available Not Available Not [...] 1 tab by mouth daily 2013 active [facility] Not Available Not Available Not Available gabapenti n 100 mg capsule Take 1 cap by mouth three times daily 2015 active Not Available Not Available Not Avai lable metoprolo l succinate ER 25 mg tablet,ex tended release 24 hr Take 1 tab by mouth daily 2017 active [facility] Not Available Not Available Not Available [...] Updated DateTime 5 164.34 cm 28.7 kg/m2 34567.3 g 97 [degF] 82 /min 18 /min 128 mm[Hg] 72 mm[Hg] KRYSTAL SKELTON LPN [facility] 13:47:58 Social History Question Answer Notes LastModified by Organizat ion Details LastModified Time Tobacco Smoking Status Never Smoker KRYSTAL SKELTON LPN [facility], [facility] 08/12/2023 07:44:55 Date Of Most [...] And Wanted Help? (For Example, If You Superior Very Nervous, Lonely, Or Blue; Got Sick [...] Safety Concerns In Your Home (see Attached [facility] Pamphlet)? No Information not available 08/12/2023 How [...] Details Recorded Time Pneumococcal conjugate PCV20, polysaccharide [id number] conjugate, adjuvant, PF 4 completed MD [address], [place] [address], [facility] 08/12/2023 11:52:18 COVID-19, mRNA, LNP-S, PF, vanda-sucrose, 30 mcg/0.3 mL 4 completed MD [address], [address] 08/12/2023 11:52:18 COVID-19, mRNA, LNP-S, PF, vanda-sucrose, 30 mcg/0.3 mL 4 completed MD [address], [address] 03/04/2024 15:04:49 Tdap 1 completed Not Available Critical access hospital 03/13/2023 06:18:37 Tdap 1 completed Not Available [facility] hospital 03/13/2023 06:18:37 zoster live 5 completed Not Available Critical access hospital 03/13/2023 06:18:37 Influenza, high-dose, trivalent, PF 8 completed Not Available Critical access hospital 03/13/2023 06:18:38 Influenza, split virus, trivalent, preservative 6 completed Not Available [facility] 03/13/2023 06:18:38 Pneumococcal Conjugate, unspecified formulation 5 completed Not Available [facility] 03/13/2023 06:18:38 Influenza, split virus, quadrivalent, preservative 7 completed Not Available [facility] 03/13/2023 06:18:38 Influenza, high-dose, quadrivalent, PF 2 completed Not Available [facility] 03/13/2023 06:18:38 Influenza, high-dose, quadrivalent, PF [...] SNOMED-CT Code Diagnosis ICD10 Code Diagnosis Note [id number] ANA HER MD [place] [address] [place] [address] 05/23/2024 13:45:51 05/23/2024 14:12:00 Chronic diarrhea 401291483 K52.9 titrate up the colestipol . Referral back to GI to discuss colonoscop y Atrial fibrillation 4943 6004 I48.91 She has possible ablation scheduled and follow up with EP, will request her recent cardiovers ion admission records. Diarrhea 35084067 R19.7 Essential hypertension 11295658 I10 well controlled , no change in medication s. Hypothyroidism 45394906 E03.9 recent TSH now in range. Slightly high, but given afib and weight loss, no reason to titrate dose. Iron defic iency anemia 74100919 D50.9 s/p IV iron during her last rehab stay, both H/H and iron stores have improved. Weight loss 26116711 R63 .4 most likely due to avoiding [...] ID Guarantor Name 05/23/2024 1 MEDIC[place]: [employer] Digna Allan Whitney [id number] Digna Olson 05/23/2024 2 [place] [facility] [id number] Digna Olson [id number] Digna Olson Notes Date Note Type Note Provider Name and Address Organization Details Recorded Time 05/23/2024 text/html Here for follow up of multiple problems as noted below:Labs reviewed. Atrial fibrillation-she underwent another cardioversion on May 05. Apparently has an appointment for an ablation in mid June, and to follow-up with the glaucoma specialist in [place] in July. She has been going to [...] virtual pacer checks other than visits in [place] s/p TAVR-she is sleeping in bed with [...] No longer taking oral iron. Had seen [facility] GI about colonoscopy due to diarrhea, but appears that was postponed due to her aortic stenosis/TAVR... repeat CBC and iron studies were reassuring, all improved. prediabetes- A1C was back in the normal range at 5.4% ANA HER MD [address], [place], [address], [place] [facility]. 05/23/2024 15:51:12 OBGyn Episode No OBEpisode recorded.
--- OUTSIDE RECORDS SUMMARY | 2024-06-01 10:01 | XMS_ITS | Data Portability ---
Author Organization [place] - [facility] Address [place] [address] Care Team Providers Care Retail Service Technician Name Role Phone GABINODC Aviation Technician [facility] Orthopedic Surgeon [facility] Sleep Medicine [facility] Manual Training Teacher Assessment Encounter Date Assessment Date Assessment LastModified by Organization Details LastModified Time 12/02/2023 12/02/2023 The total time devoted to today's encounter, including both the sddi-qa-lzfz time with the patient and/or family/caregi josefina and wcr-ptsj-tl-f patrick time I personally spent is 35 minutes. Not available 12/02/2023 14:47:23 03/04/2024 03/04/2024 The total time devoted to today's encounter, including both the ynda-aq-scwo time with the patient and/or family/caregi josefina and smp-vbff-uk-f patrick time I personally spent is 44 minutes. Not available 03/04/2024 17:47:18 05/23/2024 05/23/2024 The total time devoted to today's encounter, including both the tiqf-fy-owgf time with the patient and/or family/caregi josefina and owx-tkqi-ke-f patrick time I personally spent is 42 minutes. Not available 05/23/2024 15:47:33 Plan of Treatment Reminders Order Date Submit Date Provider Last Modified By Organization Details Last Modified Time Details Appointments None recorded. Lab BMP, serum or plasma 2023 024 [facility] (Registration ), [address] [place] [address] [place], [address], 4 08:56:49 magnesium, serum or plasma 2023 024 [facility] (Registration ), [address] [place] [address] [place], [address], 4 07:38:05 BNP (B-type natriureti c peptide), serum or plasma 2023 024 [facility] (Registration ), [address] [place] [address] [place], [address], 4 20:48:47 CBC 2023 024 [facility] (Registration ), [address] [place] [address] [place], [address], 4 16:35:23 BMP, serum or plasma 2023 024 [facility] (Registration ), [address] [place] [address] [place], [address], 4 11:42:49 vitamin D, 25-hydroxy , total, serum 2023 024 [facility] (Registration ), [address] [place] [address] [place], [address], 4 16:09:19 HbA1c (hemoglobi n A1c), blood 2023 024 [facility] (Registration ), [address] [place] [address] [place], [address], 4 11:39:49 TSH, serum, reflex free T4 2023 024 [facility] (Registration ), [address] [place] [address] [place], [address], 4 11:40:25 CBC 2023 [facility] (Registration ), [address] [place] [address] [place], [address], 4 15:08:25 ferritin, serum or plasma 2023 [facility] (Registration ), [address] [place] [address] [place], [address], 4 11:41:22 iron + total iron-lynn ng capacity (TIBC), serum 2023 [facility] (Registration ), [address] [place] [address] [place], [address], 4 11:43:17 BMP, serum or plasma 2023 [facility] (Registration ), [address] [place] [address] [place], [address], 4 11:42:49 vitamin D, 25-hydroxy , total, serum 2023 [facility] (Registration ), [address] [place] [address] [place], [address], 4 16:09:19 HbA1c (hemoglobi n A1c), blood 2023 [facility] (Registration ), [address] [place] [address] [place], [address], 4 11:39:49 TSH, serum, reflex free T4 2023 [facility] (Registration ), [address] [place] [address] [place], [address], 4 11:40:25 CBC 2023 [facility] (Registration ), [address] [place] [address] [place], [address], 4 15:08:25 ferritin, serum or plasma 2023 024 [facility] (Registration ), [address] [place] [address] [place], [address], 4 11:41:22 iron + total iron-lynn ng capacity (TIBC), serum 2023 [facility] (Registration ), [address] [place] [address] [place], [address], 4 11:43:17 Referral gastroente rologist referral - [...] at rehab and was negative. 2024 025 [facility], [address] [facility] [facility], [place], [address], 5 09:45:21 Procedures None recorded. Surgeries None recorded. Imaging None recorded. Medication Orders furosemide 80 mg tablet 2023 [facility], [address], [address], [place], [address], 14:49:38 spironolac tone 25 mg tablet [email or web address], [address] [place] [address], [address], [place], [address], 4 12:50:28 lisinopril 5 mg tablet 2023 024 [facility], [address] [place] [address], [address], [address], 4 13:19:32 carvedilol 25 mg tablet 2023 024 [facility], [address] [place] [address], [address], [place], [address], 4 12:42:49 hydromorph one 2 mg tablet 2023 024 [facility], [address] [place], [address], 4 15:12:30 levothyrox ine 75 mcg tablet [email or web address] [place] [address] [facility], [address] [place], [address], 4 16:32:19 colestipol 1 gram tablet 2024 025 [facility], [address] [place] [address], [facility] [address], [address], 5 14:26:17 carvedilol 25 mg tablet 2024 025 [facility], [address] [place] [address], [facility] [address], [address], 5 14:26:15 Patient TargetsNo targets recorded. Patient InstructionsNo instructions recorded. 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 4 normal Not Available [address] [place], [address] 11/18/2023 15:53:33 11/18/19 24 11/18/2023 COMPL ETE BLOOD COUNT W/DIF F WBC 8.69 10_3/ uL 4.4-10 .8 normal Not Available [address] [place], [address] 11/18/2023 15:57:13 11/18/19 24 11/18/2023 COMPL ETE BLOOD COUNT W/DIF F RBC 3.16 10_6/ uL 3.93-5 .22 low Not Available [address] [place], [address] 11/18/2023 15:57:13 11/18/19 24 11/18/2023 COMPL ETE BLOOD COUNT W/DIF F HGB 10.7 g/dL 11.2-1 5.7 low Not Available [address] [place], [address] 11/18/2023 15:57:13 11/18/19 24 11/18/2023 COMPL ETE BLOOD COUNT W/DIF F HCT 33.0 % 36.0-4 6.0 low Not Available [address] [place], [address] 11/18/2023 15:57:13 11/18/19 24 11/18/2023 COMPL ETE BLOOD COUNT W/DIF F MCV 104 fL 80-95 high Not Available Ethel [address] [place], [address] 11/18/2023 15:57:13 11/18/19 24 11/18/2023 COMPL ETE BLOOD COUNT W/DIF F MCH 33.9 pg 27.0-3 3.0 high Not Available [address] [place], [address] 11/18/2023 15:57:13 11/18/19 24 11/18/2023 COMPL ETE BLOOD COUNT W/DIF F MCHC 32.4 % 32.0-3 6.0 normal Not Available [address] [place], [address] 11/18/2023 15:57:13 11/18/19 24 11/18/2023 COMPL ETE BLOOD COUNT W/DIF F RDW 14.6 % 11.7-1 4.6 normal Not Available [address] [place], [address] 11/18/2023 15:57:13 11/18/19 24 11/18/2023 COMPL ETE BLOOD COUNT W/DIF F platelet count 134 10_3/ uL 130-40 0 normal Not Available [address] [place], [address] 11/18/2023 15:57:13 11/18/19 24 11/18/2023 COMPL ETE BLOOD COUNT W/DIF F MPV 11.2 fL 8.0-11 .0 high Not Available [address] [place], [address] 11/18/2023 15:57:13 11/18/19 24 11/18/2023 COMPL ETE BLOOD COUNT W/DIF F neutrophils % 74.8 % Not Available [address] [place], [address] 11/18/2023 15:57:13 11/18/19 24 11/18/2023 COMPL ETE BLOOD COUNT W/DIF F lymphocytes % 13.2 % Not Available [address] [place], [address] 11/18/2023 15:57:13 11/18/19 24 11/18/2023 COMPL ETE BLOOD COUNT W/DIF F monocytes % 5.9 % Not Available [address] [place], [address] 11/18/2023 15:57:13 11/18/19 24 11/18/2023 COMPL ETE BLOOD COUNT W/DIF F eosinophils % 5.2 % Not Available [address] [place], [address] 11/18/2023 15:57:13 11/18/19 24 11/18/2023 COMPL ETE BLOOD COUNT W/DIF F basophils % 0.6 % Not Available [address] [place], [address] 11/18/2023 15:57:13 11/18/19 24 11/18/2023 COMPL ETE BLOOD COUNT W/DIF F immature grans % 0.3 % Not Available [address] [place], [address] 11/18/2023 15:57:13 11/18/19 24 11/18/2023 COMPL ETE BLOOD COUNT W/DIF F nucleated RBC 0.0 % 0.0-0. 3 normal Not Available [address] [place], [address] 11/18/2023 15:57:13 11/18/19 24 11/18/2023 COMPL ETE BLOOD COUNT W/DIF F absolute neutrophil count 6.50 10_3/ uL 1.2-6. 7 normal Not Available [address] [place], [address] 11/18/2023 15:57:13 11/18/19 24 11/18/2023 COMPL ETE BLOOD COUNT W/DIF F absolute lymphocyte count 1.15 10_3/ uL 1.2-3. 4 low Not Available [address] [place], [address] 11/18/2023 15:57:13 11/18/19 24 11/18/2023 COMPL ETE BLOOD COUNT W/DIF F absolute monocyte count 0.51 10_3/ uL 0.1-0. 8 normal Not Available [address] [place], [address] 11/18/2023 15:57:13 11/18/19 24 11/18/2023 COMPL ETE BLOOD COUNT W/DIF F absolute eosinophil count 0.45 10_3/ uL 0.0-0. 7 normal Not Available [address] [place], [address] 11/18/2023 15:57:13 11/18/19 24 11/18/2023 COMPL ETE BLOOD COUNT W/DIF F absolute basophil count 0.05 10_3/ uL 0.0-0. 2 normal Not Available [address] [place], [address] 11/18/2023 15:57:13 11/18/19 24 11/18/2023 PROTH ROMBI N TIME prothrombin time 10.5 sec 9.1-11 .1 normal Not Available [address] [place], [address] 11/18/2023 16:14:17 11/18/19 24 11/18/2023 PROTH ROMBI N TIME INR 1.0 0.9-1. 1 normal Recom noel d INR thera peuti c range s for orall y admin ister ed drugs are as follo ws: -Jair dard Inten sity 2.0 to 3.0 -High er Inten sity 3.0 to 4.5 Not Available [address] [place], [address] 11/18/2023 16:14:17 11/18/19 24 11/18/2023 PTT ACTIV ATED PTT activated 19.6 sec 23.6-3 2.8 low Hepar in Thera peuti c Range for PTT = 52-84 secon ds New Hepar in Thera peuti c Range 06/09 Not Available [address] [place], [address] 11/18/2023 16:14:18 11/18/19 24 11/18/2023 COMPR EHENS NADEEM METAB OLIC PANEL calcium 9.0 mg/dL 8.5-10 .1 normal Not Available [address] [place], [address] 11/18/2023 16:19:21 11/18/19 24 11/18/2023 COMPR EHENS NADEEM METAB OLIC PANEL glucose 100 mg/dL 74-106 normal Not Available Ethel green [address] [place], [address] 11/18/2023 16:19:21 11/18/19 24 11/18/2023 COMPR EHENS NADEEM METAB OLIC PANEL BUN 15 mg/dL 7-18 normal Not Available Ethel [address] [place], [address] 11/18/2023 16:19:21 11/18/19 24 11/18/2023 COMPR EHENS NADEEM METAB OLIC PANEL creatinine 1.0 mg/dL 0.55-1 .02 normal Not Available [address] [place], [address] 11/18/2023 16:19:21 11/18/19 24 11/18/2023 COMPR EHENS [...] young er-ag ed adult s. Not Available [address] [place], [address] 11/18/2023 16:19:21 11/18/19 24 11/18/2023 COMPR EHENS NADEEM METAB OLIC PANEL total protein 6.8 g/dL 6.4-8. 2 normal Not Available [address] [place], [address] 11/18/2023 16:19:21 11/18/19 24 11/18/2023 COMPR EHENS NADEEM METAB OLIC PANEL albumin 3.8 g/dL 3.4-5. 0 normal Not Available [address] [place], [address] 11/18/2023 16:19:21 11/18/19 24 11/18/2023 COMPR EHENS NADEEM METAB OLIC PANEL bilirubin, total 0.92 mg/dL 0.2-1. 0 normal Not Available [address] [place], [address] 11/18/2023 16:19:21 11/18/19 24 11/18/2023 COMPR EHENS NADEEM METAB OLIC PANEL alk phos 68 U/L 46-116 normal Not Available [address] [place], [address] 11/18/2023 16:19:21 11/18/19 24 11/18/2023 COMPR EHENS NADEEM METAB OLIC PANEL sodium 144 mmol/ L 136-14 5 normal Not Available [address] [place], [address] 11/18/2023 16:19:21 11/18/19 24 11/18/2023 COMPR EHENS NADEEM METAB OLIC PANEL potassium 3.6 mmol/ L 3.5-5. 1 normal Not Available [address] [place], [address] 11/18/2023 16:19:21 11/18/19 24 11/18/2023 COMPR EHENS NADEEM METAB OLIC PANEL chloride 106 mmol/ L 98-107 normal Not Available [address] [place], [address] 11/18/2023 16:19:21 11/18/19 24 11/18/2023 COMPR EHENS NADEEM METAB OLIC PANEL CO2 29.6 mmol/ L 21.0-3 2.0 normal Not Available [address] [place], [address] 11/18/2023 16:19:21 11/18/19 24 11/18/2023 COMPR EHENS NADEEM METAB OLIC PANEL anion gap 8.4 mmol/ L 3-11 normal Not Available [address] [place], [address] 11/18/2023 16:19:21 11/18/19 24 11/18/2023 COMPR EHENS NADEEM METAB OLIC PANEL AST 15 U/L 15-37 normal Not Available Ethel green [address] [place], [address] 11/18/2023 16:19:21 11/18/19 24 11/18/2023 COMPR EHENS NADEEM METAB OLIC PANEL ALT 16 U/L 14-59 normal Not Available Ethel green [address] [place], [address] 11/18/2023 16:19:21 11/18/19 24 11/18/2023 MAGNE SIUM magnesium 1.9 mg/dL 1.8-2. 4 normal Not Available [address] [place], [address] 11/18/2023 16:19:21 11/18/19 24 11/18/2023 LIPAS E lipase 24 U/L 16-77 normal Not Available Ethel green [address] [place], [address] 11/18/2023 16:19:22 11/18/19 24 11/18/2023 TROPO LUCIA I troponin I < 50 NG/L < or =60 Not Available [address] [place], [address] 11/18/2023 16:19:22 11/18/19 24 11/18/2023 NT-WY OBNP nt-probnp 3052 pg/mL <300 high NT-pr [...] false negat nadeem resul ts. Not Available [address] [place], [address] 11/18/2023 16:19:23 11/18/19 24 11/18/2023 TSH (W/RE F FT4) TSH (w/ref FT4) 0.49 uIU/m L 0.36-3 .74 normal Not Available [address] [place], [address] 11/18/2023 16:22:20 11/18/19 24 11/18/2023 URINA LYSIS color Yellow yellow Not Available Ethel green [address] [place], [address] 11/18/2023 19:26:06 11/18/19 24 11/18/2023 URINA LYSIS clarity Clear clear Not Available Ethel green [address] [place], [address] 11/18/2023 19:26:06 11/18/19 24 11/18/2023 URINA LYSIS specific gravity 1.015 1.005- 1.025 normal Not Available [address] [place], [address] 11/18/2023 19:26:06 11/18/19 24 11/18/2023 URINA LYSIS pH 6.5 5-8 normal Not Available Ethel green [address] [place], [address] 11/18/2023 19:26:06 11/18/19 24 11/18/2023 URINA LYSIS leukocyte esterase Small negati ve abnormal Not Available [address] [place], [address] 11/18/2023 19:26:06 11/18/19 24 11/18/2023 URINA LYSIS nitrite Negati ve negati ve Not Available [address] [place], [address] 11/18/2023 19:26:06 11/18/19 24 11/18/2023 URINA LYSIS protein Negati ve mg/dL neg-tr patrick Not Available [address] [place], [address] 11/18/2023 19:26:06 11/18/19 24 11/18/2023 URINA LYSIS glucose Negati ve mg/dL negati ve Not Available [address] [place], [address] 11/18/2023 19:26:06 11/18/19 24 11/18/2023 URINA LYSIS ketones Negati ve mg/dL negati ve Not Available [address] [place], [address] 11/18/2023 19:26:06 11/18/19 24 11/18/2023 URINA LYSIS urobilinogen 0.2 mg/dL up to 0.2 Not Available [address] [place], [address] 11/18/2023 19:26:06 11/18/19 24 11/18/2023 URINA LYSIS bilirubin Negati ve negati ve Not Available [address] [place], [address] 11/18/2023 19:26:06 11/18/19 24 11/18/2023 URINA LYSIS blood Negati ve negati ve Not Available [address] [place], [address] 11/18/2023 19:26:06 11/18/19 24 11/18/2023 URINA LYSIS color Yellow yellow Not Available Ethel green [address] [place], [address] 11/18/2023 20:30:25 11/18/19 24 11/18/2023 URINA LYSIS clarity Clear clear Not Available Ethel green [address] [place], [address] 11/18/2023 20:30:25 11/18/19 24 11/18/2023 URINA LYSIS specific gravity 1.015 1.005- 1.025 normal Not Available [address] [place], [address] 11/18/2023 20:30:25 11/18/19 24 11/18/2023 URINA LYSIS pH 6.5 5-8 normal Not Available Ethel green [address] [place], [address] 11/18/2023 20:30:25 11/18/19 24 11/18/2023 URINA LYSIS leukocyte esterase Small negati ve abnormal Not Available [address] [place], [address] 11/18/2023 20:30:25 11/18/19 24 11/18/2023 URINA LYSIS nitrite Negati ve negati ve Not Available [address] [place], [address] 11/18/2023 20:30:25 11/18/19 24 11/18/2023 URINA LYSIS protein Negati ve mg/dL neg-tr aptrick Not Available [address] [place], [address] 11/18/2023 20:30:25 11/18/19 24 11/18/2023 URINA LYSIS glucose Negati ve mg/dL negati ve Not Available [address] [place], [address] 11/18/2023 20:30:25 11/18/19 24 11/18/2023 URINA LYSIS ketones Negati ve mg/dL negati ve Not Available [address] [place], [address] 11/18/2023 20:30:25 11/18/19 24 11/18/2023 URINA LYSIS urobilinogen 0.2 mg/dL up to 0.2 Not Available [address] [place], [address] 11/18/2023 20:30:25 11/18/19 24 11/18/2023 URINA LYSIS bilirubin Negati ve negati ve Not Available [address] [place], [address] 11/18/2023 20:30:25 11/18/19 24 11/18/2023 URINA LYSIS blood Negati ve negati ve Not Available [address] [place], [address] 11/18/2023 20:30:25 11/18/19 24 11/18/2023 MICRO SCOPI C FINDI NGS WBC 3-5 hpf 0-5 Not Available Ethel green [address] [place], [address] 11/18/2023 20:30:25 11/18/19 24 11/18/2023 MICRO SCOPI C FINDI NGS RBC Negati ve hpf 0-2 Not Available Joel smith [address] [place], [address] 11/18/2023 20:30:25 11/18/19 24 11/18/2023 MICRO SCOPI C FINDI NGS epithelial cells Many hpf negati ve Not Available [address] [place], [address] 11/18/2023 20:30:25 11/18/19 24 11/18/2023 MICRO SCOPI C FINDI NGS bacteria Few hpf negati ve Not Available [address] [place], [address] 11/18/2023 20:30:25 11/18/19 24 11/18/2023 MICRO SCOPI C FINDI NGS crystals Negati ve hpf negati ve Not Available [address] [place], [address] 11/18/2023 20:30:25 11/18/19 24 11/18/2023 MICRO SCOPI C FINDI NGS mucus Trace negati ve Not Available [address] [place], [address] 11/18/2023 20:30:25 11/18/19 24 11/18/2023 MICRO SCOPI C FINDI NGS C S indicated? No Not Available [address] [place], [address] 11/18/2023 20:30:25 11/18/19 24 11/18/2023 TROPO LUCIA I troponin I < 50 NG/L < or =60 Not Available [address] [place], [address] 11/18/2023 22:25:47 11/18/19 24 11/18/2023 VENOU S BLOOD GAS pH (venous) 7.45 7.31-7 .41 high Not Available [address] [place], [address] 11/18/2023 23:12:54 11/18/19 24 11/18/2023 VENOU S BLOOD GAS pCO2 (venous) 44 mmHg 41-51 normal Not Available [facility] [address] [place], [address] 11/18/2023 23:12:54 11/18/19 24 11/18/2023 VENOU S BLOOD GAS pO2 (venous) 37 mmHg Not Available [address] [place], [address] 11/18/2023 23:12:54 11/18/19 24 11/18/2023 VENOU S BLOOD GAS TCO2 (venous) 28 mmol/ L 24-29 normal Not Available [address] [place], [address] 11/18/2023 23:12:54 11/18/19 24 11/18/2023 VENOU S BLOOD GAS HCO3 (venous) 30 mmol/ L 23-28 high Not Available [address] [place], [address] 11/18/2023 23:12:54 11/18/19 24 11/18/2023 VENOU S BLOOD GAS BE (venous) 6 mmol/ L -2-3 high Not Available [address] [place], [address] 11/18/2023 23:12:54 11/18/19 24 11/18/2023 VENOU S BLOOD GAS O2 sat (venous) 74 % Not Available [facility] [address] [place], [address] 11/18/2023 23:12:54 11/19/19 24 11/19/2023 COMPL ETE BLOOD COUNT W/DIF F WBC 7.07 10_3/ uL 4.4-10 .8 normal Not Available [address] [place], [address] 11/19/2023 07:03:22 11/19/19 24 11/19/2023 COMPL ETE BLOOD COUNT W/DIF F RBC 2.93 10_6/ uL 3.93-5 .22 low Not Available [address] [place], [address] 11/19/2023 07:03:22 11/19/19 24 11/19/2023 COMPL ETE BLOOD COUNT W/DIF F HGB 9.8 g/dL 11.2-1 5.7 low Not Available [address] [place], [address] 11/19/2023 07:03:22 11/19/19 24 11/19/2023 COMPL ETE BLOOD COUNT W/DIF F HCT 30.5 % 36.0-4 6.0 low Not Available [address] [place], [address] 11/19/2023 07:03:22 11/19/19 24 11/19/2023 COMPL ETE BLOOD COUNT W/DIF F MCV 104 fL 80-95 high Not Available [address] [place], [address] 11/19/2023 07:03:22 11/19/19 24 11/19/2023 COMPL ETE BLOOD COUNT W/DIF F MCH 33.4 pg 27.0-3 3.0 high Not Available [address] [place], [address] 11/19/2023 07:03:22 11/19/19 24 11/19/2023 COMPL ETE BLOOD COUNT W/DIF F MCHC 32.1 % 32.0-3 6.0 normal Not Available [address] [place], [address] 11/19/2023 07:03:22 11/19/19 24 11/19/2023 COMPL ETE BLOOD COUNT W/DIF F RDW 14.4 % 11.7-1 4.6 normal Not Available [address] [place], [address] 11/19/2023 07:03:22 11/19/19 24 11/19/2023 COMPL ETE BLOOD COUNT W/DIF F platelet count 112 10_3/ uL 130-40 0 low Not Available [address] [place], [address] 11/19/2023 07:03:22 11/19/19 24 11/19/2023 COMPL ETE BLOOD COUNT W/DIF F MPV 10.8 fL 8.0-11 .0 normal Not Available [address] [place], [address] 11/19/2023 07:03:22 11/19/19 24 11/19/2023 COMPL ETE BLOOD COUNT W/DIF F neutrophils % 74.3 % Not Available [address] [place], [address] 11/19/2023 07:03:22 11/19/19 24 11/19/2023 COMPL ETE BLOOD COUNT W/DIF F lymphocytes % 14.1 % Not Available [address] [place], [address] 11/19/2023 07:03:22 11/19/19 24 11/19/2023 COMPL ETE BLOOD COUNT W/DIF F monocytes % 6.5 % Not Available [address] [place], [address] 11/19/2023 07:03:22 11/19/19 24 11/19/2023 COMPL ETE BLOOD COUNT W/DIF F eosinophils % 4.4 % Not Available [address] [place], [address] 11/19/2023 07:03:22 11/19/19 24 11/19/2023 COMPL ETE BLOOD COUNT W/DIF F basophils % 0.4 % Not Available [address] [place], [address] 11/19/2023 07:03:22 11/19/19 24 11/19/2023 COMPL ETE BLOOD COUNT W/DIF F immature grans % 0.3 % Not Available [address] [place], [address] 11/19/2023 07:03:22 11/19/19 24 11/19/2023 COMPL ETE BLOOD COUNT W/DIF F nucleated RBC 0.0 % 0.0-0. 3 normal Not Available [address] [place], [address] 11/19/2023 07:03:22 11/19/19 24 11/19/2023 COMPL ETE BLOOD COUNT W/DIF F absolute neutrophil count 5.25 10_3/ uL 1.2-6. 7 normal Not Available [address] [place], [address] 11/19/2023 07:03:22 11/19/19 24 11/19/2023 COMPL ETE BLOOD COUNT W/DIF F absolute lymphocyte count 1.00 10_3/ uL 1.2-3. 4 low Not Available [address] [place], [address] 11/19/2023 07:03:22 11/19/19 24 11/19/2023 COMPL ETE BLOOD COUNT W/DIF F absolute monocyte count 0.46 10_3/ uL 0.1-0. 8 normal Not Available [address] [place], [address] 11/19/2023 07:03:22 11/19/19 24 11/19/2023 COMPL ETE BLOOD COUNT W/DIF F absolute eosinophil count 0.31 10_3/ uL 0.0-0. 7 normal Not Available [address] [place], [address] 11/19/2023 07:03:22 11/19/19 24 11/19/2023 COMPL ETE BLOOD COUNT W/DIF F absolute basophil count 0.03 10_3/ uL 0.0-0. 2 normal Not Available [address] [place], [address] 11/19/2023 07:03:22 11/19/19 24 11/19/2023 IRON AND IBCT iron 45 ug/dL 50-170 low Not Available [address], [address] 11/19/2023 07:24:25 11/19/19 24 11/19/2023 IRON AND IBCT total iron binding capacity 284 ug/dL 250-45 0 normal Not Available [address] [place], [address] 11/19/2023 07:24:25 11/19/19 24 11/19/2023 IRON AND IBCT transferrin sat 16 % 15-50 normal Not Available Ariela avitia [address] [place], [address] 11/19/2023 07:24:25 11/19/19 24 11/19/2023 BASIC METAB OLIC PANEL calcium 8.5 mg/dL 8.5-10 .1 normal Not Available [address] [place], [address] 11/19/2023 07:49:36 11/19/19 24 11/19/2023 BASIC METAB OLIC PANEL glucose 93 mg/dL 74-106 normal Not Available Ethel green [address] [place], [address] 11/19/2023 07:49:36 11/19/19 24 11/19/2023 BASIC METAB OLIC PANEL BUN 12 mg/dL 7-18 normal Not Available Ethel green [address] [place], [address] 11/19/2023 07:49:36 11/19/19 24 11/19/2023 BASIC METAB OLIC PANEL creatinine 0.8 mg/dL 0.55-1 .02 normal Not Available [address] [place], [address] 11/19/2023 07:49:36 11/19/19 24 11/19/2023 BASIC METAB [...] young er-ag ed adult s. Not Available [address] [place], [address] 11/19/2023 07:49:36 11/19/19 24 11/19/2023 BASIC METAB OLIC PANEL sodium 147 mmol/ L 136-14 5 high Not Available [address] [place], [address] 11/19/2023 07:49:36 11/19/19 24 11/19/2023 BASIC METAB OLIC PANEL potassium 3.2 mmol/ L 3.5-5. 1 low Not Available [address] [place], [address] 11/19/2023 07:49:36 11/19/19 24 11/19/2023 BASIC METAB OLIC PANEL chloride 107 mmol/ L 98-107 normal Not Available [address] [place], [address] 11/19/2023 07:49:36 11/19/19 24 11/19/2023 BASIC METAB OLIC PANEL CO2 31.2 mmol/ L 21.0-3 2.0 normal Not Available [address] [place], [address] 11/19/2023 07:49:36 11/19/19 24 11/19/2023 BASIC METAB OLIC PANEL anion gap 8.8 mmol/ L 3-11 normal Not Available [address] [place], [address] 11/19/2023 07:49:36 11/19/19 24 11/19/2023 DANIEL TIN ferritin 169 NG/mL 8-252 normal Not Available [address] [place], [address] 11/19/2023 07:49:36 11/19/19 24 11/19/2023 MAGNE SIUM magnesium 1.8 mg/dL 1.8-2. 4 normal Not Available [address] [place], [address] 11/19/2023 07:49:37 11/19/19 24 11/19/2023 VITAM IN B12 vitamin B12 1124 pg/mL 193-98 6 high Not Available [address] [place], [address] 11/19/2023 07:49:37 11/19/19 24 11/19/2023 FOLAT E folate 19.3 NG/mL 8.6-20 .0 normal Not Available [address] [place], [address] 11/19/2023 07:49:37 11/19/19 24 11/20/2023 TRANS DANIEL N transferrin 188 mg/dL 201-35 2 abnormal Test perfo rmed or refer red by [facility] [address], [place] [address] Not Available [address] [place], [address] 11/23/2023 12:15:30 11/20/19 24 11/20/2023 BASIC METAB OLIC PANEL calcium 8.9 mg/dL 8.5-10 .1 normal Not Available [address] [place], [address] 11/20/2023 07:12:43 11/20/19 24 11/20/2023 BASIC METAB OLIC PANEL glucose 115 mg/dL 74-106 high Not Available Ethel green [address] [facility] [place], [address] 11/20/2023 07:12:43 11/20/19 24 11/20/2023 BASIC METAB OLIC PANEL BUN 19 mg/dL 7-18 high Not Available Ethel green [address] [place], [address] 11/20/2023 07:12:43 11/20/19 24 11/20/2023 BASIC METAB OLIC PANEL creatinine 1.0 mg/dL 0.55-1 .02 normal Not Available [address] [facility] [place], [address] 11/20/2023 07:12:43 11/20/19 24 11/20/2023 BASIC METAB [...] young er-ag ed adult s. Not Available [address] [place], [address] 11/20/2023 07:12:43 11/20/19 24 11/20/2023 BASIC METAB OLIC PANEL sodium 140 mmol/ L 136-14 5 normal Not Available [address] [place], [address] 11/20/2023 07:12:43 11/20/19 24 11/20/2023 BASIC METAB OLIC PANEL potassium 3.6 mmol/ L 3.5-5. 1 normal Not Available [address] [place], [address] 11/20/2023 07:12:43 11/20/19 24 11/20/2023 BASIC METAB OLIC PANEL chloride 100 mmol/ L 98-107 normal Not Available [address] [place], [address] 11/20/2023 07:12:43 11/20/19 24 11/20/2023 BASIC METAB OLIC PANEL CO2 33.2 mmol/ L 21.0-3 2.0 high Not Available [address] [place], [address] 11/20/2023 07:12:43 11/20/19 24 11/20/2023 BASIC METAB OLIC PANEL anion gap 6.8 mmol/ L 3-11 normal Not Available [address] [place], [address] 11/20/2023 07:12:43 12/02/19 24 12/02/2023 BASIC METAB OLIC PANEL calcium 9.8 mg/dL 8.5-10 .1 normal Not Available [address] [place], [address] 12/02/2023 16:25:21 12/02/19 24 12/02/2023 BASIC METAB OLIC PANEL glucose 104 mg/dL 74-106 normal Not Available Ethel green [address] [place], [address] 12/02/2023 16:25:21 12/02/19 24 12/02/2023 BASIC METAB OLIC PANEL BUN 20 mg/dL 7-18 high Not Available Ethel green [address] [place], [address] 12/02/2023 16:25:21 12/02/19 24 12/02/2023 BASIC METAB OLIC PANEL creatinine 1.1 mg/dL 0.55-1 .02 high Not Available [address] [place], [address] 12/02/2023 16:25:21 12/02/19 24 12/02/2023 BASIC METAB [...] young er-ag ed adult s. Not Available [address] [place], [address] 12/02/2023 16:25:21 12/02/19 24 12/02/2023 BASIC METAB OLIC PANEL sodium 143 mmol/ L 136-14 5 normal Not Available [address] [place], [address] 12/02/2023 16:25:21 12/02/19 24 12/02/2023 BASIC METAB OLIC PANEL potassium 4.6 mmol/ L 3.5-5. 1 normal Not Available [address] [place], [address] 12/02/2023 16:25:21 12/02/19 24 12/02/2023 BASIC METAB OLIC PANEL chloride 106 mmol/ L 98-107 normal Not Available [address] [place], [address] 12/02/2023 16:25:21 12/02/19 24 12/02/2023 BASIC METAB OLIC PANEL CO2 29.1 mmol/ L 21.0-3 2.0 normal Not Available [address] [place], [address] 12/02/2023 16:25:21 12/02/19 24 12/02/2023 BASIC METAB OLIC PANEL anion gap 7.9 mmol/ L 3-11 normal Not Available [address] [place], [address] 12/02/2023 16:25:21 12/02/19 24 12/02/2023 MAGNE SIUM magnesium 1.8 mg/dL 1.8-2. 4 normal Not Available [address] [place], [address] 12/02/2023 16:25:22 12/02/19 24 12/02/2023 NT-WY OBNP nt-probnp 2190 pg/mL <300 high NT-pr [...] negat nadeem resul ts. Not Available [facility] (Registration ) [address] [place] [address] [place], [address], 12/02/2023 16:25:22 12/02/19 24 12/02/2023 COMPL ETE BLOOD COUNT NO DIFF WBC 7.43 10_3/ uL 4.4-10 .8 normal Not Available [address] [place], [address] 12/02/2023 16:35:23 12/02/19 24 12/02/2023 COMPL ETE BLOOD COUNT NO DIFF RBC 3.18 10_6/ uL 3.93-5 .22 low Not Available [address] [place], [address] 12/02/2023 16:35:23 12/02/19 24 12/02/2023 COMPL ETE BLOOD COUNT NO DIFF HGB 10.6 g/dL 11.2-1 5.7 low Not Available [address] [place], [address] 12/02/2023 16:35:23 12/02/19 24 12/02/2023 COMPL ETE BLOOD COUNT NO DIFF HCT 33.5 % 36.0-4 6.0 low Not Available [address] [place], [address] 12/02/2023 16:35:23 12/02/19 24 12/02/2023 COMPL ETE BLOOD COUNT NO DIFF MCV 105 fL 80-95 high 1+ macro cytos is Not Available [address] [place], [address] 12/02/2023 16:35:23 12/02/19 24 12/02/2023 COMPL ETE BLOOD COUNT NO DIFF MCH 33.3 pg 27.0-3 3.0 high Not Available [address] [place], [address] 12/02/2023 16:35:23 12/02/19 24 12/02/2023 COMPL ETE BLOOD COUNT NO DIFF MCHC 31.6 % 32.0-3 6.0 low Not Available [address] [place], [address] 12/02/2023 16:35:23 12/02/19 24 12/02/2023 COMPL ETE BLOOD COUNT NO DIFF RDW 13.3 % 11.7-1 4.6 normal Not Available [address] [place], [address] 12/02/2023 16:35:23 12/02/19 24 12/02/2023 COMPL ETE BLOOD COUNT NO DIFF platelet count 140 10_3/ uL 130-40 0 normal Not Available [address] [place], [address] 12/02/2023 16:35:23 12/02/19 24 12/02/2023 COMPL ETE BLOOD COUNT NO DIFF MPV 11.8 fL 8.0-11 .0 high Not Available [address] [place], [address] 12/02/2023 16:35:23 04/18/20 24 04/18/2024 COMPL ETE BLOOD COUNT NO DIFF WBC 6.58 10_3/ uL 4.4-10 .8 normal Not Available [address] [place], [address] 04/18/2024 15:08:25 04/18/20 24 04/18/2024 COMPL ETE BLOOD COUNT NO DIFF RBC 3.70 10_6/ uL 3.93-5 .22 low Not Available [address] [place], [address] 04/18/2024 15:08:25 04/18/20 24 04/18/2024 COMPL ETE BLOOD COUNT NO DIFF HGB 12.0 g/dL 11.2-1 5.7 normal Not Available [address] [place], [address] 04/18/2024 15:08:25 04/18/20 24 04/18/2024 COMPL ETE BLOOD COUNT NO DIFF HCT 38.0 % 36.0-4 6.0 normal Not Available [address] [place], [address] 04/18/2024 15:08:25 04/18/20 24 04/18/2024 COMPL ETE BLOOD COUNT NO DIFF MCV 103 fL 80-95 high Not Available [address], [address] 04/18/2024 15:08:25 04/18/20 24 04/18/2024 COMPL ETE BLOOD COUNT NO DIFF MCH 32.4 pg 27.0-3 3.0 normal Not Available [address] [place], [address] 04/18/2024 15:08:25 04/18/20 24 04/18/2024 COMPL ETE BLOOD COUNT NO DIFF MCHC 31.6 % 32.0-3 6.0 low Not Available [address] [place], [address] 04/18/2024 15:08:25 04/18/20 24 04/18/2024 COMPL ETE BLOOD COUNT NO DIFF RDW 15.6 % 11.7-1 4.6 high Not Available [address] [place], [address] 04/18/2024 15:08:25 04/18/20 24 04/18/2024 COMPL ETE BLOOD COUNT NO DIFF platelet count 124 10_3/ uL 130-40 0 low Not Available [address] [place], [address] 04/18/2024 15:08:25 04/18/20 24 04/18/2024 COMPL ETE BLOOD COUNT NO DIFF MPV 11.2 fL 8.0-11 .0 high Not Available [address] [place], [address] 04/18/2024 15:08:25 04/18/20 24 04/18/2024 IRON AND IBCT iron 65 ug/dL 50-170 normal Not Available [facility] (Registration ) [address] [place] [address] [place], [address], 04/18/2024 16:07:17 04/18/20 24 04/18/2024 IRON AND IBCT total iron binding capacity 318 ug/dL 250-45 0 normal Not Available [facility] (Registration ) [address] [place] [address] [place], [address], 04/18/2024 16:07:17 04/18/20 24 04/18/2024 IRON AND IBCT transferrin sat 20 % 15-50 normal Not Available [facility] (Registration ) [address] [place] [address] [place], [address], 04/18/2024 16:07:17 04/18/20 24 04/18/2024 BASIC METAB OLIC PANEL calcium 9.4 mg/dL 8.5-10 .1 normal Not Available [facility] (Registration ) [address] [place] [address] [place], [address], 04/18/2024 16:09:17 04/18/20 24 04/18/2024 BASIC METAB OLIC PANEL glucose 103 mg/dL 74-106 normal Not Available [facility] (Registration ) [address] [place] [address] [place], [address], 04/18/2024 16:09:17 04/18/20 24 04/18/2024 BASIC METAB OLIC PANEL BUN 21 mg/dL 7-18 high Not Available [facility] (Registration ) [address] [place] [address] [place], [address], 04/18/2024 16:09:17 04/18/20 24 04/18/2024 BASIC METAB OLIC PANEL creatinine 1.0 mg/dL 0.55-1 .02 normal Not Available [facility] (Registration ) [address] [place] [address] [facility] [place], [address], 04/18/2024 16:09:17 04/18/20 24 04/18/2024 BASIC METAB [...] er-ag ed adult s. Not Available [facility] (Registration ) [address] [place] [address] [place], [address], 04/18/2024 16:09:17 04/18/20 24 04/18/2024 BASIC METAB OLIC PANEL sodium 145 mmol/ L 136-14 5 normal Not Available [facility] (Registration ) [address] [place] [address] [place], [address], 04/18/2024 16:09:17 04/18/20 24 04/18/2024 BASIC METAB OLIC PANEL potassium 4.2 mmol/ L 3.5-5. 1 normal Not Available [facility] (Registration ) [address] [place] [address] [place], [address], 04/18/2024 16:09:17 04/18/20 24 04/18/2024 BASIC METAB OLIC PANEL chloride 107 mmol/ L 98-107 normal Not Available [facility] (Registration ) [address] [place] [address] [place], [address], 04/18/2024 16:09:17 04/18/20 24 04/18/2024 BASIC METAB OLIC PANEL CO2 31.4 mmol/ L 21.0-3 2.0 normal Not Available [facility] (Registration ) [address] [place] [address] [place], [address], 04/18/2024 16:09:17 04/18/20 24 04/18/2024 BASIC METAB OLIC PANEL anion gap 6.6 mmol/ L 3-11 normal Not Available [facility] (Registration ) [address] [place] [address] [place], [address], 04/18/2024 16:09:17 04/18/20 24 04/18/2024 DANIEL TIN ferritin 211 NG/mL 8-252 normal Not Available [facility] (Registration ) [address] [place] [address] [place], [address], 04/18/2024 16:09:18 04/18/20 24 04/18/2024 TSH (W/RE F FT4) TSH (w/ref FT4) 2.17 uIU/m L 0.36-3 .74 normal NOTE: Supra -phys iolog ic doses of Bioti n(B7) may cause false negat nadeem resul ts. Not Available [facility] (Registration ) [address] [place] [address] Dr, [place], [address], 04/18/2024 16:09:18 04/18/20 24 04/18/2024 VITAM IN D 25 TOTAL vitamin D 25 total 63.9 NG/mL 30-100 normal Refer ence Guide lines : Defic ient: <10 ng/ml Insuf ficie nt: 10-30 ng/ml Suffi cient : 30-10 0 ng/ml Toxic : >100 ng/ml Not Available [address] [facility] [place], [address] 04/18/2024 16:09:19 04/18/20 24 04/18/2024 HEMOG LOBIN [...] nt 1):S1 3-s28 . Not Available [facility] (Registration ) [address] [place] [address] [place], [address], 04/18/2024 16:21:24 11/04/19 24 10/14/2023 rhyth m strip , EKG* No observ ation record ed. [email or web address] Not Available 2023 10:18:08 11/18/19 24 11/18/2023 US, duple x, lower extre mity Paticherie t Name: Rmea Olson Unit #: [id number] Loc: ER Orderi ng Provid er: Braydon Doyle Accoun t #: [id number] Status : REG ER Primar y Care [...] tation , and color Dopple r. The visual display manager ior tibial veins are patent . [...] at the addres s above. Thank- you. [address], [place], [address] 11/18/2023 16:48:49 11/18/19 24 11/18/2023 CT imagi martin hackett Name: Rema Olson Unit #: [id number] Loc: ER Sonal salazar Provid er: Braydon Doyle Accoun t #: [id number] Status : REG ER Primar y Care [...] interl obular septal thicke jama greate r visual display manager iorly which could indica te mild CHF. No consol idatio n or domina nt measur able mass. Pleura : Small left pleura l effusi on. Heart: The heart is modera tely dilate d. Division Supervisor ior perica rdial effusi on. Minima [...] . Small perica rdial effusi on seen visual display manager iorly. Small left pleura l effusi [...] error, please notify us immedi zayly at 805-19 1-1700 and return the origin al report to us at the addres s above. Thank- you. [address] [place], [address] 11/19/2023 12:12:11 11/19/1911/19/2023 ultra sound imagi ng repor t Patien t Name: Rema Olson Unit #: [id number] Loc: MS Pruitt ng Provid er: Huseyin Bolaños M.D. Accsantos t #: [id number] Status : ADM IN Primar y [...] at the addres s above. Thank- you. [address], [place], [address] 11/19/2023 12:12:11 01/18/20 24 11/15/2018 imagi ng/di [...] 2023- ERICH HER MD [address], [place], [address] , [facility] 4 17:34:10 Hypothyr oidism 15577899 Active 1959 EVIE shaw [facility] 4 10:29:59 Essentia l hyperten jason 37737053 Active 1959 EVIE shaw [facility] 4 10:29:36 Hyperlip idemia 56470724 Active 1959 on statin MD [address], [place], [address] , [facility] 4 20:35:18 Spinal stenosis of lumbar region 98832805 Active 2012 s/p lumbar for[place] parish L4 MD [address], [place] [address] , [facility] 4 20:36:41 Sleep apnea 72266001 Active 2012 on CPAP MD [address], [place] [address] , [facility] 4 20:39:31 Gastroes ophageal reflux disease without esophagi tis 815688094 Completed 195908/12/2023 Removal Reason: resolved with surgical repair of HH MD [address], [facility] [address] , [facility] 4 10:41:24 Family history of malignan t neoplasm of digestiv e organ 240333090 Active [address], [place], [address] , [facility] 4 20:37:03 Paresthe samir 45916847 Completed 201412/01/2014 11/28/19 15 - Comments only - Erich Her MD - check B12 and folate Problem Code: R20.2; Problem Code Type: ICD-10; Not Available [facility] 3 05:53:48 Adult health examinat ion Active [address], [place], [address] , [facility] 4 20:33:34 Pre-surg ruben evaluati on [...] Type: ICD-10; Not Available [facility] 3 05:53:48 Localize d edema 919433626 Completed 201501/29/2016 12/13/19 16 - Comments only - Erich Her MD - and some on left as well, will check BMP. 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 Fitzpatr ick for removal. Problem Code: L72.3; Problem Code Type: ICD-10; Not Available [facility] 3 05:53:49 Chronic ulcer of foot 758880401 Completed 201601/16/2017 12/18/19 17 - Comments only - Erich Her MD - Due to injury. This does appear to have some granulat ion tissue and to be healing. She is given a prescrip tion for Keflex to take only if erythema seems to be extendin g. Problem Code: L97.509; Problem Code Type: ICD-10; Not Available [facility] 3 05:53:49 Diarrhea 67431947 Completed 201602/10/2017 02/05/20 17 - Comments only - Erich Her MD - Persiste nt over several months, we will collect stool for C. difficil e, Giardia, culture, and lactofer rin Problem Code: R19.7; Problem Code Type: ICD-10; ERICH HER MD [address], [place], [address] , [facility]. 4 21:03:03 Polyp of cervix 43095405 Active 2016 EVIE shaw, [facility]. 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 6 mm PT1NO E2P2 poistive , HER2 negative MD [address], [place], [address] , [facility]. 4 20:38:49 Pain in left lower limb 090737482 Active 2016 EVIE shaw [facility], [facility]. 4 10:32:00 Pain in thoracic spine 896449306 Active 2016 EVIE shaw [facility], [facility]. 4 10:32:06 Spasm 40583581 Active 2017 EVIE shaw [facility] 4 10:33:28 Abdomina l distensi on, gaseous 136704310 Completed 201703/08/2018 Problem Code: R14.0; Problem Code Type: ICD-10; Not Available [facility] 3 05:53:50 Cellulit is of toe 94029862 Completed 201808/12/2018 Problem Code: L03.039; Problem Code Type: ICD-10; Not Available [facility] 3 05:53:51 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 2018 Danica Felix cloin, [facility] 4 14:36:02 Tachycar lea 2886513 Completed 201811/25/2018 Problem Code: R00.0; Problem Code Type: ICD-10; Not Available [facility] 3 05:53:51 Pre-surg ruben evaluati on Completed 201811/25/2018 Problem Code: Z01.818; Problem Code Type: ICD-10; Not Available [facility] 3 05:53:51 Iron deficien cy anemia 40661228 Active 2019 elevated MCV: normal B12 2021, normal folate 2018 IV iron 2023 EGD 01/2022 paraesop hageal hernia (since repaired ) colo 03/2017 normal ERICH HER MD [facility] [address], [place], [address] , [facility] 4 11:44:45 Lumbago with sciatica 991678501 Completed 201903/16/2020 02/24/20 20 - Comments only - Vy Pinon [employer] - Likely aggravat ed by increase d [...] [facility] 3 05:53:52 Right side sciatica 86866512134 9101 [facility] 4 10:33:09 Left side sciatica 94958594718 9104 Active [address], [facility] [address] , [facility] 4 17:20:20 Diaphrag matic hernia 56020573 Completed 202108/11/2023 Removal Reason: s/p repair MD [address], [place] [id number] , [facility] 4 20:50:39 History of SARS-CoV -2 32754606976 6202739 Completed 202104/04/2022 03/21/20 22 - Comments only - Erich Her MD - testing is negative today in the office. Still some fatigue but otherwis e recoveri ng. Did get MAB. Already had covid bivalent booster prior to illness Problem Code: Z86.16; Problem Code Type: ICD-10; Not Available [facility] 3 05:53:53 Diarrhea 36692682 Completed 202104/18/2022 Problem Code: R19.7; Problem Code Type: ICD-10; MD [address], [facility] [address] , [facility] 4 21:03:02 Screenin g mammogra phy Completed 202208/11/[address], [place], [address] , [facility] 4 20:36:56 Carpal tunnel syndrome of left wrist 04181467132 9102 Completed 202201/23/2023 Problem Code: G56.02; Problem Code Type: ICD-10; Not Available [facility] 4 05:37:46 Diarrhea 11684033 Active 2022 started colestip ol 01/[address], [place], [address] , [facility] 4 21:03:02 Carpal tunnel syndrome of right wrist 52427940685 9108 Completed 201803/19/2020 Problem Code: G56.01; Problem Code Type: ICD-10; Not Available [facility] 3 05:53:55 Pain of left knee joint 46515280465 4107 Completed 202107/30/2022 Problem Code: M25.562; Problem Code Type: ICD-10; Not Available [facility] 3 05:53:55 Hypersom korina 51175493 Completed 201311/27/2014 Problem Code: 780.54; Problem Code Type: ICD-9; Not Available [facility] 3 05:53:56 Screenin g for disorder Completed 201909/11/2021 Problem Code: Z13.9; Problem Code Type: ICD-10; Not Available [facility] 3 05:53:56 Anemia 403338656 Completed 201903/19/2020 Problem Code: D64.9; Problem Code Type: ICD-10; Not Available [facility] 3 05:53:56 Long-ter m current use of anticoag ulant 586483616 Completed 201709/01/2018 Problem Code: Z79.01; Problem Code Type: ICD-10; Not Available [facility] 3 05:53:57 Chronic rhinitis 01175063 Completed 202108/12/2021 Problem Code: J31.0; Problem Code Type: ICD-10; Not Available [facility] 05:53:57 Impaired fasting glycemia 388258504 Completed 201401/28/2023 Not Available [facility] 3 05:53:57 Fatigue 28533707 Completed 201903/19/2020 Problem Code: R53.83; Problem Code Type: ICD-10; Not Available [facility] 05:53:58 Upper respirat ory tract infectio n caused by Influenz a A 28409385128 9104 Completed 201707/02/2017 Problem Code: J09.x2; Problem Code Type: ICD-10; Not Available [facility] 05:53:59 Diarrhea 60216339 Completed 201709/01/2018 ERICH HER MD [facility] [address], [place], [address] [facility] 21:03:02 Acute upper respirat ory infectio n 21253656 Completed 202108/26/2021 Problem Code: J06.9; Problem Code Type: ICD-10; Not Available [facility] 05:53:59 Pain in right foot 38281838923 9107 Completed 202207/30/2022 Problem Code: M79.671; Problem Code Type: ICD-10; Not Available [facility] 3 05:54:00 Breast composit ion 127672019 Completed 201601/28/2023 Not Available [facility] 3 05:54:00 Changes in skin texture 077327544 Completed 202207/30/2022 Problem Code: R23.4; Problem Code Type: ICD-10; Not Available [facility] 3 05:54:01 Spasm 59252762 Completed 201603/23/2017 Problem Code: R25.2; Problem Code Type: ICD-10; EVIE RUFUS [facility] 4 10:33:28 Hyperten sive disorder 60272409 Completed 11/28/19 15 - Comments only - Erich Her MD - [facility] ed, no change in medicati ons Not Available [facility] 3 05:54:03 Arthralg ia of the ankle and/or foot 084982613 Completed 201501/30/2016 Problem Code: M25.571; Problem Code Type: ICD-10; Not Available [facility] 3 05:54:03 Dyspnea 637874045 Completed 201903/19/2020 Problem Code: R06.02; Problem Code Type: ICD-10; Danica Felix [facility] 4 14:39:47 Trigger finger of right hand 35924722683 201902 Completed 201803/19/2020 Problem Code: M65.341; Problem Code Type: ICD-10; Not Available [facility] 3 05:54:06 Cough 88647385 Completed 202108/12/2021 Problem Code: R05.1; Problem Code Type: ICD-10; Not Available [facility] 3 05:54:06 At risk - finding 700764700 Completed 201811/11/2018 Problem Code: Z91.89; Problem Code Type: ICD-10; Not Available [facility] 3 05:54:06 Cough 99719456 Completed 201706/15/2017 Problem Code: R05; Problem Code Type: ICD-10; Not Available [facility] 3 05:54:07 Preopera tive cardiova scular examinat ion Completed 202112/18/2021 Problem Code: Z01.810; Problem Code Type: ICD-10; Not Available [facility] 3 05:54:08 Arterial bruit 47041119 Completed 202109/11/2021 Not Available [facility] 3 05:54:08 Gastroes ophageal reflux disease 960065564 Completed Not Available [facility] 3 05:54:09 Imaging of musculos keletal system abnormal 358435032 Completed 201603/23/2017 Problem Code: R93.7; Problem Code Type: ICD-10; Not Available [facility] 3 05:54:10 Blood glucose outside referenc e range 019248887 Completed 201503/20/2016 Problem Code: R73.09; Problem Code Type: ICD-10; Not Available [facility] 3 05:54:10 Abdomina l aortic aneurysm 617731986 Completed 195912/04/2014 Not Available [facility] 3 05:54:11 Lung field abnormal 331039184 Completed 202109/11/2021 Problem Code: R91.8; Problem Code Type: ICD-10; Not Available [facility] 3 05:54:11 Ingrowin g nail 358169519 Completed 201503/23/2017 Problem Code: L60.0; Problem Code Type: ICD-10; Not Available [facility] 3 05:54:11 Hypokale karyn 41894515 Completed 201504/17/2016 Problem Code: E87.6; Problem Code Type: ICD-10; Not Available [facility] 3 05:54:12 Spasm 21840404 Completed 202201/23/2023 Problem Code: M62.838; Problem Code Type: ICD-10; EVIE shaw, [facility] 4 10:33:28 Aneurysm of ascendin g aorta 643334638 Active 2023 ERICH HER MD [address], [place], [address] , [facility]. 4 19:24:51 Bicuspid aortic valve 80190062 Active 2023 severe by ECHO 07/2023 ERICH HER MD [address], [place], [address] , [facility]. 4 19:33:10 Osteopen ia 934024845 Active 2023 EVIE shaw, [facility] 4 10:28:13 Venous stasis 70706364 Active 2023 EVIE shaw, [facility] 4 10:29:14 Chronic kidney disease 890146862 Active 2017 Stage 3bA1v eGFR 42-[address], [place] [address] , [facility] 4 20:49:29 Dyspnea on exertion 87207349 Active 2018 Danica Felix colin, [facility] 4 14:39:44 Hiatal hernia 34323346 Completed 202108/11/2023 lap repair MD [address], [place] [address] , [facility] 4 20:51:15 Edema of lower extremit y 244599542 Active [address], [place] [address] , [facility] 4 20:55:49 Atrial fibrilla tion 39574995 Active 2016 s/p pulmonoa ry vein isolatio n 05/2018, chronic anticoag ulation with Xarelto MD [address], [facility] [address] , [facility] 4 09:14:08 Obesity 110426361 Active [address], [place] [address] , [facility] 4 09:26:22 Cardiac pacemake r in situ 636168713 Active 2023 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 MD [address], [place], [address] , [facility] 09:13:49 Swelling of bilatera l lower limbs 193253850 Active [address], [place], [address] , [facility] 14:35:13 Problem Notes None recorded. Procedures Surgical History Date Name Laterality Status Provider Name and Address Organization Details Recorded Time 10/26/19 cardiac pacemaker procedure completed MD [address], [place], [address], [facility] 03/16/2024 16:33:27 10/20/19 transcatheter aortic valve implantation completed MD [address], [place], [address], [facility] 03/16/2024 16:32:53 Imaging Results Imaging Date Name Status LastModified by Organiz ation Details LastModified Time 10/14/2023 rhythm strip, EKG* completed [email or web address] Information not available 11/06/2023 10:18:08 11/18/2023 US, duplex, lower extremity completed [address] [place], [address] 11/18/2023 16:48:49 11/18/2023 CT imaging report completed [address] [place], [address] 11/19/2023 12:12:11 11/19/2023 ultrasound imaging report completed [address] [place], [address] 11/19/2023 12:12:11 11/15/2018 imaging/diagnos tic result completed [...] Name and Address Organization Details Recorded Time 07137 amlodipin e medicatio n swelling severe high 11/18/2023 65224 RxNorm Shaneka Herrera MA [facility], [facility] 13:47:28 Medications Name Sig Start [...] 1 tab by mouth daily 06/02 [facility] Not Available Not Available Not [...] Updated DateTime 4 164.34 cm 31.2 kg/m2 45748.1 8 g 99.8 [degF] 97 % 97 % 91 /min 17 /min 131 mm[Hg] 77 mm[Hg] Shaneka Herrera MA [facility] 4 13:46:32 Date Recorded Body height Body mass index (BMI) Body weight Body temperature Oxygen saturation Oxygen saturation in Arterial blood by Pulse oximetry Respiratory rate Heart rate Systolic blood pressure Diastolic blood pressure Provider Name and Address Organization Details Last Updated DateTime 4 164.34 cm 30.6 kg/m2 22948.8 1 g 97.5 [degF] 97 % 97 % 18 /min 88 /min 102 mm[Hg] 60 mm[Hg] KRYSTAL SKELTON LPN [facility] 4 11:10:31 Date Recorded Body height Body mass index (BMI) Body weight Body temperature Oxygen saturation Oxygen saturation in Arterial blood by Pulse oximetry Heart rate Respiratory rate Systolic blood pressure Diastolic blood pressure Provider Name and Address Organization Details Last Updated DateTime 4 164.34 cm 29.1 kg/m2 38130.4 8 g 97.7 [degF] 96 % 96 % 104 /min 18 /min 120 mm[Hg] 74 mm[Hg] KRYSTAL SKELTON LPN [facility] 4 14:18:40 Date Recorded Body height Body mass index (BMI) Body weight Body temperature Heart rate Respiratory rate Systolic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
--- OUTSIDE RECORDS SUMMARY | 2024-06-01 10:02 | XMS_ITS | Continuity of Care Document ---
Author Organization [facility] [place] [address] Care Team Providers Care Corner Block Cutter Name Role Phone GABINODC Wigs Salesperson [facility] Orthopedic Surgeon [facility] Sleep Medicine [facility] Leather Whitener Assessment Encounter Date Assessment Date Assessment LastModified by Organization Details LastModified Time 03/04/2024 03/04/2024 The total time devoted to today's encounter, including both the pbco-rq-pzbj time with the patient and/or family/caregi josefina and gpj-kppg-cx-f patrick time I personally spent is 44 minutes. Not available 03/04/2024 17:47:18 Plan of Treatment Reminders Order Date Submit Date Provider Last Modified By Organization Details Last Modified Time Details Appointments None recorded. Lab BMP, serum or plasma 2023 024 [facility] (Registration ), [address] [place] [address] [place], [address], 4 11:42:49 vitamin D, 25-hydroxy, total, serum 2023 024 [facility] (Registration ), [address] [place] [address] [place], [address], 4 16:09:19 HbA1c (hemoglobin A1c), blood 2023 024 [facility] (Registration ), [address] [place] [address] [place], [address], 4 11:39:49 TSH, serum, reflex free T4 2023 024 [facility] (Registration ), [address] [place] [address] [place], [address], 4 11:40:25 CBC 2023 [facility] (Registration ), [address] [place] [address] [place], [address], 4 15:08:25 ferritin, serum or plasma 2023 024 [facility] (Registration ), [address] [place] [address] [place], [address], 4 11:41:22 iron + total iron-bindin g capacity (TIBC), serum 2023 [facility] (Registration ), [address] [place] [address] [place], [address], 4 11:43:17 Referral None recorded. Procedures None recorded. Surgeries None recorded. Imaging None recorded. Medication Orders hydromorpho ne 2 mg tablet 2023 [facility] [place], [address], 4 15:12:30 levothyroxi ne 75 mcg tablet 2023 024 [facility], [address] [place], [address], 4 16:32:19 Patient TargetsNo targets recorded. Patient InstructionsNo instructions recorded. 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 None Reported. Problems Name Problem SNOMED Code Status Onset Date Resolution Date Notes Provider Name and Address Organization Details Recorded Time Osteopor otic fracture Active 2023 Zoledron ate started at time of humeral fracture 2023- MD [address], [place], [address] , [facility] 4 17:34:10 Hypothyr oidism 49233328 Active 1959 EVIE VIRAMONTESUE [facility], [facility] 4 10:29:59 Essentia l hyperten jason 93986368 Active 1959 EVIE RUFUS shaw, [facility] 4 10:29:36 Hyperlip idemia 12686954 Active 1959 on statin MD [address], [place], [address] , [facility] 4 20:35:18 Spinal stenosis of lumbar region 68885243 Active 2012 s/p lumbar foramino parish L4 MD [address], [place], [address] , [facility] 4 20:36:41 Sleep apnea 20214808 Active 2012 on CPAP MD [address], [place], [address] , [facility] 4 20:39:31 Gastroes ophageal reflux disease without esophagi tis 508825811 Completed 195908/12/2023 Removal Reason: resolved with surgical repair of HH MD [address], [place], [address] , [facility] 4 10:41:24 Family history of malignan t neoplasm of digestiv e organ 624518515 Active [address], [place], [address] , [facility] 4 20:37:03 Paresthe samir 64291303 Completed 201412/01/2014 11/28/19 15 - Comments only - Ana Her MD - check B12 and folate Problem Code: R20.2; Problem Code Type: ICD-10; Not Available Critical access hospital 3 05:53:48 Adult health examinat ion Active [address], [place], [address] , [facility] 4 20:33:34 Pre-surg ruben evaluati [...] access hospital 3 05:53:48 Localize d edema 678275400 Completed 201501/29/2016 12/13/19 16 - Comments only - Ana Her MD - and some on left as well, will check BMP. 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 Nusrat holtk for removal. Problem Code: L72.3; Problem Code Type: ICD-10; Not Available Critical access hospital 3 05:53:49 Chronic ulcer of foot 620882137 Completed 201601/16/2017 12/18/19 17 - Comments only - Ana Her MD - Due to injury. This does appear to have some granulat ion tissue and to be healing. She is given a prescrip tion for Keflex to take only if erythema seems to be extendin g. Problem Code: L97.509; Problem Code Type: ICD-10; Not Available Critical access hospital 3 05:53:49 Diarrhea 91053697 Completed 201602/10/2017 02/05/20 17 - Comments only - Ana Her MD - Persiste nt over several months, we will collect stool for C. 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 6 mm PT1NO E2P2 poistive , HER2 negative MD [address], [place], [address] , [facility] 4 20:38:49 Pain in left lower limb 546243230 Active 2016 EVIE shaw, [facility]. 4 10:32:00 Pain in thoracic spine 833030699 Active 2016 EVIE shaw, [facility] 4 10:32:06 Spasm 89630639 Active 2017 EVIE shaw, [facility] 4 10:33:28 Abdomina l distensi on, gaseous 819168308 Completed 201703/08/2018 Problem Code: R14.0; Problem Code Type: ICD-10; Not Available Critical access hospital 3 05:53:50 Cellulit is of toe 69115123 Completed 201808/12/2018 Problem Code: L03.039; Problem Code Type: ICD-10; Not Available [facility] 3 05:53:51 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 2018 Danica shaw, [facility] 4 14:36:02 Tachycar lea 4472113 Completed 201811/25/2018 Problem Code: R00.0; Problem Code Type: ICD-10; Not Available [facility] 3 05:53:51 Pre-surg ruben evaluati on Completed 201811/25/2018 Problem Code: Z01.818; Problem Code Type: ICD-10; Not Available [facility] 3 05:53:51 Iron deficien cy anemia 64871066 Active 2019 elevated MCV: normal B12 2021, normal folate 2018 IV iron 2023 EGD 01/2022 paraesop hageal hernia (since repaired ) colo 03/[address] MD [address], [place], [address] , [facility], [facility]. 4 11:44:45 Lumbago with sciatica 754601147 Completed 201903/16/2020 02/24/20 20 - Comments only - Vy Pinon [employer] CHANGER - Likely aggravat ed by increase d [...] access hospital 3 05:53:52 Right side sciatica 38802400573 9101 Active 2019 EVIE HOOPER [facility] 4 10:33:09 Left side sciatica 88544920840 9104 Active [address], [place], [address] , [facility] 4 17:20:20 Diaphrag matic hernia 90981585 Completed 202108/11/2023 Removal Reason: s/p repair MD [address], [place], [address] , [facility] 4 20:50:39 History of SARS-CoV -2 03870433286 1842546 Completed 202104/04/2022 03/21/20 22 - Comments only - Ana Her MD - testing is negative today in the office. Still some fatigue but otherwis e recoveri ng. Did get MAB. Already had covid bivalent booster prior to illness Problem Code: Z86.16; Problem Code Type: ICD-10; Not Available Critical access hospital 3 05:53:53 Diarrhea 38588672 Completed 202104/18/2022 Problem Code: R19.7; Problem Code Type: ICD-10; MD [address], [place], [address] , [facility] 4 21:03:02 Screenin g mammogra phy Completed 202208/11/[address], [place], [address] , [facility] 4 20:36:56 Carpal tunnel syndrome of left wrist 68484242766 9102 Completed 202201/23/2023 Problem Code: G56.02; Problem Code Type: ICD-10; Not Available Critical access hospital 4 05:37:46 Diarrhea 30902500 Active 2022 started colestip ol 01/[address], [place], [address] , [facility] 4 21:03:02 Carpal tunnel syndrome of right wrist 58230050165 9108 Completed 201803/19/2020 Problem Code: G56.01; Problem Code Type: ICD-10; Not Available Critical access hospital 3 05:53:55 Pain of left knee joint 89020111759 4107 Completed 202107/30/2022 Problem Code: M25.562; Problem Code Type: ICD-10; Not Available Critical access hospital 3 05:53:55 Hypersom korina 76842195 Completed 201311/27/2014 Problem Code: 780.54; Problem Code Type: ICD-9; Not Available Critical access hospital 3 05:53:56 Screenin g for disorder Completed 201909/11/2021 Problem Code: Z13.9; Problem Code Type: ICD-10; Not Available Critical access hospital 3 05:53:56 Anemia 141065634 Completed 201903/19/2020 Problem Code: D64.9; Problem Code Type: ICD-10; Not Available Critical access hospital 3 05:53:56 Long-ter m current use of anticoag ulant 323736308 Completed 201709/01/2018 Problem Code: Z79.01; Problem Code Type: ICD-10; Not Available Critical access hospital 3 05:53:57 Chronic rhinitis 58842957 Completed 202108/12/2021 Problem Code: J31.0; Problem Code Type: ICD-10; Not Available Critical access hospital 3 05:53:57 Impaired fasting glycemia 938829331 Completed 201401/28/2023 Not Available Critical access hospital 3 05:53:57 Fatigue 51573512 Completed 201903/19/2020 Problem Code: R53.83; Problem Code Type: ICD-10; Not Available Critical access hospital 3 05:53:58 Upper respirat ory tract infectio n caused by Influenz a A 09871698962 9104 Completed 201707/02/2017 Problem Code: J09.x2; Problem Code Type: ICD-10; Not Available Critical access hospital 3 05:53:59 Diarrhea 93529071 Completed 201709/01/2018 ANA HER MD [facility] [address], [place], [address] , [facility]. 4 21:03:02 Acute upper respirat ory infectio n 25213094 Completed 202108/26/2021 Problem Code: J06.9; Problem Code Type: ICD-10; Not Available Critical access hospital 3 05:53:59 Pain in right foot 67732303090 9107 Completed 202207/30/2022 Problem Code: M79.671; Problem Code Type: ICD-10; Not Available Critical access hospital 3 05:54:00 Breast composit ion 138135616 Completed 201601/28/2023 Not Available Critical access hospital 3 05:54:00 Changes in skin texture 569390666 Completed 202207/30/2022 Problem Code: R23.4; Problem Code Type: ICD-10; Not Available Critical access hospital 3 05:54:01 Spasm 05736860 Completed 201603/23/2017 Problem Code: R25.2; Problem Code Type: ICD-10; EVIE RUFUS shaw, [facility] 4 10:33:28 Hyperten sive disorder 48378676 Completed 11/28/19 15 - Comments only - Ana Her MD - [facility] ed, no change in medicati ons Not Available Critical access hospital 3 05:54:03 Arthralg ia of the ankle and/or foot 336518424 Completed 201501/30/2016 Problem Code: M25.571; Problem Code Type: ICD-10; Not Available Critical access hospital 3 05:54:03 Dyspnea 771919669 Completed 201903/19/2020 Problem Code: R06.02; Problem Code Type: ICD-10; Danica Felix colin, [facility] 4 14:39:47 Trigger finger of right hand 11494809783 950411 Completed 201803/19/2020 Problem Code: M65.341; Problem Code Type: ICD-10; Not Available Critical access hospital 3 05:54:06 Cough 47369122 Completed 202108/12/2021 Problem Code: R05.1; Problem Code Type: ICD-10; Not Available Critical access hospital 3 05:54:06 At risk - finding 994292893 Completed 201811/11/2018 Problem Code: Z91.89; Problem Code Type: ICD-10; Not Available Critical access hospital 3 05:54:06 Cough 90709325 Completed 201706/15/2017 Problem Code: R05; Problem Code Type: ICD-10; Not Available Critical access hospital 3 05:54:07 Preopera tive cardiova scular examinat ion Completed 202112/18/2021 Problem Code: Z01.810; Problem Code Type: ICD-10; Not Available Critical access hospital 3 05:54:08 Arterial bruit 77918545 Completed 202109/11/2021 Not Available Critical access hospital 3 05:54:08 Gastroes ophageal reflux disease 512954224 Completed Not Available Critical access hospital 3 05:54:09 Imaging of musculos keletal system abnormal 021911700 Completed 201603/23/2017 Problem Code: R93.7; Problem Code Type: ICD-10; Not Available Critical access hospital 3 05:54:10 Blood glucose outside referenc e range 964248330 Completed 201503/20/2016 Problem Code: R73.09; Problem Code Type: ICD-10; Not Available Critical access hospital 3 05:54:10 Abdomina l aortic aneurysm 277903010 Completed 195912/04/2014 Not Available Critical access hospital 3 05:54:11 Lung field abnormal 167692606 Completed 202109/11/2021 Problem Code: R91.8; Problem Code Type: ICD-10; Not Available Critical access hospital 3 05:54:11 Ingrowin g nail 859224252 Completed 201503/23/2017 Problem Code: L60.0; Problem Code Type: ICD-10; Not Available Critical access hospital 3 05:54:11 Hypokale karyn 14448037 Completed 201504/17/2016 Problem Code: E87.6; Problem Code Type: ICD-10; Not Available Critical access hospital 3 05:54:12 Spasm 68806911 Completed 202201/23/2023 Problem Code: M62.838; Problem Code Type: ICD-10; EVIE shaw [facility] 4 10:33:28 Aneurysm of ascendin g aorta 356379811 Active [address], [place], [address] , [facility] 4 19:24:51 Bicuspid aortic valve 20908389 Active 2023 severe by ECHO 07/[address], [facility] [address] , [facility] 4 19:33:10 Osteopen ia 828865516 Active 2023 EVIE shaw, [facility] 4 10:28:13 Venous stasis 96620474 Active 2023 EVIE shaw, [facility] 4 10:29:14 Chronic kidney disease 367930563 Active 2017 Stage 3bA1v eGFR 42-[address], [place], [address] , [facility] 4 20:49:29 Dyspnea on exertion 21947184 Active 2018 Danica shaw, [facility] 4 14:39:44 Hiatal hernia 49517182 Completed 202108/11/2023 lap repair MD [address], [place], [address] , [facility] 4 20:51:15 Edema of lower extremit y 323597765 Active [address], [place], [address] , [facility] 4 20:55:49 Atrial fibrilla tion 33198233 Active 2016 s/p pulmonoa ry vein isolatio n 05/2018, chronic anticoag ulation with Xarelto MD [address], [place] [address] 4 09:14:08 Obesity 500181016 Active [address], [address] 4 09:26:22 Cardiac pacemake r in situ 841929130 Active 2023 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 MD Young [address], [address] 4 09:13:49 Swelling of bilatera l lower limbs 793042048 Active [address], [address] 14:35:13 Problem Notes None recorded. Procedures Surgical History Date Name Laterality Status Provider Name and Address Organization Details Recorded Time 10/26/19 cardiac pacemaker procedure completed MD Young [address], [address] 03/16/2024 16:33:27 10/20/19 transcatheter aortic valve implantation completed MD Young [address], [address] 03/16/2024 16:32:53 Imaging Results None recorded. Procedure Notes None recorded. Medical Equipment None Reported. Allergies Allergen ID Allergen Name Allergen Category Reaction Reaction Severity Criticality Documentation Date Start Date Code Code System Note Provider Name and Address Organization Details Recorded Time 96533 amlodipin e medicatio n swelling severe high 11/18/2023 37117 RxNorm HIRA Hodge, [facility] 13:47:28 Medications Name Sig Start [...] 1 tab by mouth daily 06/02 completed [employer] re Not Available Not Available Not Available [...] 1 tab by mouth daily 2013 active [facility] Not Available Not Available Not Available gabapenti n 100 mg capsule Take 1 cap by mouth three times daily 2015 active Not Available Not Available Not Avai lable metoprolo l succinate ER 25 mg tablet,ex tended release 24 hr Take 1 tab by mouth daily 2017 active [facility] Not Available Not Available Not [...] Updated DateTime 4 164.34 cm 29.1 kg/m2 58350.4 8 g 97.7 [degF] 96 % 96 % 104 /min 18 /min 120 mm[Hg] 74 mm[Hg] KRYSTAL SKELTON LPN [facility] 14:18:40 Social History Question Answer Notes LastModified by Organizat ion Details LastModified Time Tobacco Smoking Status Never Smoker KRYSTAL SKELTON LPN [facility], [facility] 08/12/2023 07:44:55 [...] And Wanted Help? (For Example, If You [place] Very Nervous, Lonely, Or Blue; Got Sick [...] Details Recorded Time Pneumococcal conjugate PCV20, polysaccharide LKB428 conjugate, adjuvant, PF 4 completed MD [address], [address] 08/12/2023 11:52:18 COVID-19, mRNA, LNP-S, PF, vanda-sucrose, 30 mcg/0.3 mL 4 completed MD [address], [address] 08/12/2023 11:52:18 COVID-19, mRNA, LNP-S, PF, vanda-sucrose, 30 mcg/0.3 mL 4 completed MD [address], [address] 03/04/2024 15:04:49 Tdap 1 completed Not [...] SNOMED-CT Code Diagnosis ICD10 Code Diagnosis Note [id number] ANA HER MD [address] [place] [address] 03/04/2024 14:02:04 03/04/2024 15:12:46 Active or passive immunization 734027102 Z23 Hypothyroidism 95718334 E03.9 dose lowered during hospital or rehab stay, will repeat TSH in few months. Osteoporotic fracture 46 295257 M80.00XD received first dose of zoledronic acid [...] to next visit. Iron defic iency anemia 87901082 D50.9 Did receive some IV iron, unclear how many doses. No longer taking oral iron. Had seen [facility] about colonoscop y due to diarrhea, but appears that was postponed due to her aortic stenosis/T AVR... will repeat CBC and iron studies in few months, if falling again will need to consider GI workup for blood loss. Chronic ki dney disease 310321130 N18.9 Prediabetes 317598962 R7 3.03 Health Concerns Section Related Observation LastModified by Organization Detai ls LastModified Time None Recorded Concern Status LastModified by Organization Details LastModified Time None Recorded Payers Encounter Date Sequence Insurance Name Policy Number Policy Palacio Covered Member ID Palacio Member ID Guarantor Name 03/04/2024 1 [place] [employer] Digna Olson [id number] Digna Olson 03/04/2024 2 [place] [facility] [id number] Digna Olson [id number] Digna Lemus Whitney Notes Date Note Type Note Provider Name and Address Organization Details Recorded Time 03/04/2024 text/html Pt was admitted to [facility] 12/10-12/16 with fall and humeral [...] TAVR. ANA HER MD [address], [place], [address], [facility]. 03/04/2024 17:49:41 OBGyn Episode No OBEpisode recorded.
--- OUTSIDE RECORDS SUMMARY | 2024-06-01 10:02 | XMS_ITS | Encounter Summary ---
Author Organization [facility] [place] [address] Care Team Providers Care Supervisor Laboratory Animal Facility Name Role Phone Ana Her MD Primary Care Provider [phone] Encounter Details Date Type Department Care Team (Late st Contact Info) Description 01/08/2022 7:42 AM EDT Anesthesia Event [place] [address] Alisa Naqvi MD [facility] [address] ANESTHESIOLOGY [place] [address] Anesthesia Record Procedure Summary Procedure Name Responsible [...] cephalic vein (lateral side of arm), left; echg-zsr-hbvhhp catheter system; Anatomical Landmarks; 20 gauge; Joslyn RN; tolerated well, appears comfortable; 01/08/22; 92601/08/22732 by Sorin Hurd RN 01/08/22926 by Gabriela Ayers documented in this encounter Social History Tobacco [...] Procedure Summary Date: 01/08/22 Room / Location: [address] MAIN OR Anesthesia Start: 741 Anesthesia Stop: 825 Procedure: EGD, UPPER GI ENDOSCOPY (N/A Trunk) Diagnosis: (Hiatal hernia) Surgeons: Laura Will MD Responsible Provider: Alisa Naqvi MD Anesthesia Type: general ASA Status: 3 All Anesthesia Providers: Anesthesiologist: Alisa Naqvi MD Fire Crew Worker: Nghia Valerio MD Vitals Value Taken Time BP 98/56 01/08/22 0823 Temp Pulse Resp SpO2 99 % 01/08/22 0827 Pain Level Vitals shown include unvalidated device data. Patient Location: PACU/[facility] Level of Consciousness: Conscious but Sleepy [...] of left breast of female, estrogen receptor hitqadtc03/25/2017 ??? Bicuspid aortic valve 06/10/2016 ??? Dyspnea [...] MD at [facility] MAIN OR Social History Tobacco Use [...] documented in this encounter Care Teams Supervisor Laboratory Animal Facility Relationship Specialty Start Date End Date Ana Her MD [address] [facility] [address] [place] [address] PCP - General 07/29/13 documented as of this encounter
--- OUTSIDE RECORDS SUMMARY | 2024-06-01 10:02 | XMS_ITS | Encounter Summary ---
Author Organization [facility] [place] [address] Care Team Providers Care Technical Administrative Assistant Name Role Phone Ana Her MD Primary Care Provider [phone] Encounter Details Date Type Department Care Team (Latest Contact Info) Description 01/23/2022 12:15 PM EDT TH Visit (TeleHealth) [place] [address] Laura Will MD [facility] [place] [address] Paraesophageal hernia Social History Tobacco Use Types [...] her. She is followed by cardiology at [facility], and is on xarelto. Impression: [...] gangrene documented in this encounter Care Teams Technical Administrative Assistant Relationship Specialty Start Date End Date Ana Her MD [address] [facility] [address] [place] [address] PCP - General 07/29/13 documented as of this encounter
--- OUTSIDE RECORDS SUMMARY | 2024-06-01 10:02 | XMS_ITS | Encounter Summary ---
[place] [address] Care Team Providers Care Safety Risk Lead Name Role Phone Ana Her MD Primary Care Provider [phone] Reason for Visit * Auth/Cert Specialty Diagnoses / Procedures Referred By Christiano hackett Referred To Contact Diagnoses S/P repair of paraesophageal hernia Post-Op monitoring Procedures PRO LAPARSCOPY REPAIR PARAESOPHAGEAL HERNIA INCL FUNDOPLASTY W/O MESH LAPAROSCOPIC PARAESOPHAGEAL HERNIA REPAIR W/FUNDOPLASTY, W/O MESH (WRVU 26.6) MODIFIER TOUPET FUNDOPLASTY Shania Will MD [facility] [place] [address] [facility] Referral ID Status Reason Start Date Expiration Date Visits Re quested Visits Authorized [id number] 1 1 Encounter Details Date Type Department Care Team (Late st Contact Info) Description 03/05/2022 12:54 PM EDT - 03/05/2022 4:55 PM EDT [place] [id number] Shania Will MD [facility] [place] [address] LAPAROSCOPIC PARAESOPHAGEAL HERNIA REPAIR W/FUNDOPLASTY, W/O MESH [...] of left breast of female, estrogen receptor [id number], Z17.0 ??? Anemia D64.9 ??? Aortic valve [...] Per chart review, her creatinine levels in 3127-0004 ranged from 0.87-1.50 indicative of possible undiagnosed [...] PM Shania Will MD General Surgery at [facility] Arrive at: Getter Operator Area [phone] Instructions Given to Patient at Discharge: Patient [...] hours please call the Surgery Clinic at [phone] before 5 PM on weekdays. For questions after hours and on weekends please call the hospital drone operator at [phone] and ask for the General Surgery resident flight operations engineer. They may not be familiar with [...] post Sly diet, as instructed by the municipal court magistrate in the hospital for a period of [...] renal function. Please call the clinic at [phone] to confirm or reschedule. Future Appointments Date Time Provider Department Center 04/03/2022 12:00 PM Shania Will MD [facility] SURG [facility] General Instructions None Future Appointments and Orders Future Appointments and Orders Future Appointments Provider Department Dept Phone 04/03/2022 12:00 PM Shania Will MD General Surgery at [facility] Arrive at: Getter Operator Area 4L [phone] Signed: Shena Harden MD 03/07/22 7:18 AM [phone] Primary Saima Physician: MD Geovany David DR [facility] [id number] documented in this encounter Discharge Instructions * [...] hours please call the Surgery Clinic at [phone] before 5 PM on weekdays. For questions after hours and on weekends please call the hospital drone operator at [phone] and ask for the General Surgery resident flight operations engineer. They may not be familiar with [...] post Sly diet, as instructed by the municipal court magistrate in the hospital for a period of [...] renal function. Please call the clinic at [phone] to confirm or reschedule. Future Appointments Date Time Provider Department Center 04/03/2022 12:00 PM Shania Will MD [facility] SUR[facility] documented in this encounter Medications [...] Ocampo RN - 03/07/2022 10:25 AM EDT [facility] Short Stay Unit Discharge Note All [...] Sly Diet Education to pt Digna Olson. Staff Psychologist metwith pt at bedside to deliver full [...] she is noticing some overall improvement post op.Staff Psychologist took note of this and encouraged the [...] contact information provided. Pt appreciate of senior mortgage underwriter's time. Nutrition to follow as needed. [...] Perez MD 03/05/2022 Minimally Invasive Surgery Pager #[phone] * Lorrie Slater RN - 03/05/2022 6:46 [...] ?? She is followed by cardiology at [facility], and is on xarelto. ?? Impression: ??Symptomatic [...] of left breast of female, estrogen receptor [id number], Z17.0 ??? Anemia D64.9 ??? Aortic valve [...] Chen MD at [facility] MAIN OR ?? Cholecystectomy ?? Medications: [...] Operative Note Patient Name: Digna Olson : [id number] MR#: [id number] Case Date: 03/05/2022 Surgeon: Surgeon(s) and Role: [...] Flores MD - 03/05/2022 2:32 PM EDT [facility] Operative Note Patient Name: Digna Olson : [id number] MR#: [id number] Case Date: 03/05/2022 Surgeon: Surgeon(s) and Role: [...] Repair Paraesophageal Hernia Incl Fundoplasty W/O Mesh (51044) 03/05/2022 1:58 PM EDT Paraesophageal Hernia POCT GLUCOSE Routine 03/05/2022 12:18 PM EDT LAPAROSCOPIC PARAESOPHAGEAL HERNIA REPAIR W FUNDOPLASTY, W/O MESH Routine 03/05/2022 12:02 PM EDT documented in this encounter Results * (ABNORMAL) Differential, Automated (03/07/2022 5:08 AM EDT) Neutrophil % 80.0 % [facility] Neutrophil Absolute 5.30 1.70 - 6.10 x10(3)/mc L [facility] Lymph % 12.1 % [facility] Lymphocytes Abs 0.8(L) 0.9 - 3.2 x10(3)/mc L [facility] Monocyte % 7.6 % [facility] Monocyte Abs 0.5 0.3 - 0.9 x10(3)/mc L [facility] Eos % 0.0 % [facility] Eosinophils Abs 0.0 0.0 - 0.4 x10(3)/[facility] Basophil % 0.0 % [facility] Baso Absolute 0.0 0.0 - 0.1 x10(3)/[facility] Immature Gran % 0.30 % [facility] Comment: Immature granulocytes(IG's)percentage and absolute count will include metamyelocytes, myelocytes, and promyelocytes. Blood smears from CBCs yielding IG's will be scanned manually for concordance. If this scan disagrees with the automated IG or if promyelocytes are noted, a manual differential will be performed. Immature Gran Absolute 0.02 0.00 - 0.04 x10(3)/[facility] Blood 03/07/2022 5:08 AM EDT 03/07/2022 5:19 AM EDT Narrative Resulting Agency Comment Spec In Lab Nino Levy MD HEMATOLOGY ORDERABLE S [facility] [place] [address] * (ABNORMAL) Hemogram (03/07/2022 5:08 AM EDT) White Blood Cell 6.6 4.0 - 9.5 x10(3)/[facility] Red Blood Cell 3.16(L) 4.00 - 5.21 x10(6)/[facility] Hemoglobin 10.7(L) 11.7 - 15.5 g/dL [facility] Hematocrit 31.7(L) 35.7 - 45.8 % [facility] Mean Cell Volume 100.3(H) 82.6 - 94.4 fL [facility] Mean Cell Hemoglobin 33.9(H) 27.1 - 32.0 pg [facility] Mean Cell Hemoglobin Concentration 33.8 31.7 - 35.0 g/dL [facility] Platelet 110(L) 145 - 357 x10(3)/mc L [facility] RDW Standard Deviation 47.5(H) 37.0 - 46.0 [facility] RDW coefficient of variation 12.9 11.5 - 14.1 % [facility] Mean Platelet Volume 11.7 7.6 - 12.9 [facility] NRBC% auto 0.0 % [facility] NRBC Absolute 0.000 0.000 - 0.000 x10(3)/mc L [facility] Blood 03/07/2022 5:08 AM EDT 03/07/2022 5:19 AM EDT Narrative Resulting Agency Comment Spec In Lab Nino Levy MD HEMATOLOGY ORDERABLE S Performing Organization Address City/[facility]/[place] [address] * Phosphorus (03/07/2022 5:08 AM EDT) Phosphorus 2.7 2.5 - 4.5 mg/dL [facility] Blood 03/07/2022 5:08 AM EDT 03/07/2022 5:19 AM EDT Narrative Resulting Agency Comment Spec In Lab Shania Will MD CHEMISTRY ORDERABLE S Performing Organization Address City/[facility]/ZIP Co de Phone Number [facility] [place] [address] * Magnesium (03/07/2022 5:08 AM EDT) Magnesium 0.89 0.69 - 1.07 mmol/L [facility] Blood 03/07/2022 5:08 AM EDT 03/07/2022 5:19 AM EDT Narrative Resulting Agency Comment Spec In Lab Shania Will MD CHEMISTRY ORDERABLE S [facility] [place] [address] * (ABNORMAL) Basic Metabolic Panel (non-fasting) (03/07/2022 5:08 AM EDT) Glucose 111 65 - 199 mg/dL [facility] Comment:Diabetes: >=200 mg/d L plus symptoms Blood Urea Nitrogen 22(H) 8 - 18 mg/dL [facility] Creatinine 0.93 0.70 - 1.20 mg/dL [facility] Sodium 131(L) 135 - 145 mmol/L [facility] Potassium 4.5 3.5 - 5.0 mmol/L [facility] Comment: Please note: ??Patients with WBC >100,000 may have falsely elevated Potassium levels. ??For accurate Potassium quantification in these patients send serum separator tube (gold top) for subsequent determinations. ??Contact the Clinical Chemistry Laboratory if there are any questions. Chloride 100 98 - 107 mmol/L [facility] Carbon Dioxide 22 22 - 31 mmol/L [facility] Anion Gap 9 5 - 15 mmol/L [facility] Calcium 9.2 8.5 - 10.5 mg/dL [facility] Est Glomerular Filtration Rate 64 >=60 mL/min/1. 73 m?? [facility] Comment: This patient's estimated GFR [...] [facility]/ZIP Co de Phone Number [facility] [place] [address] * (ABNORMAL) Differential, Automated (03/06/2022 10:15 AM EDT) Neutrophil % 90.7 % [facility] Neutrophil Absolute 5.79 1.70 - 6.10 x10(3)/mc L [facility] Lymph % 5.0 % [facility] Lymphocytes Abs 0.3(L) 0.9 - 3.2 x10(3)/mc L [facility] Monocyte % 3.8 % [facility] Monocyte Abs 0.2(L) 0.3 - 0.9 x10(3)/mc L [facility] Eos % 0.0 % [facility] Eosinophils Abs 0.0 0.0 - 0.4 x10(3)/[facility] Basophil % 0.0 % [facility] Baso Absolute 0.0 0.0 - 0.1 x10(3)/ L [facility] Immature Gran % 0.50 % [facility] Comment: Immature granulocytes(IG's)percentage and absolute count will include metamyelocytes, myelocytes, and promyelocytes. Blood smears from CBCs yielding IG's will be scanned manually for concordance. If this scan disagrees with the automated IG or if promyelocytes are noted, a manual differential will be performed. Immature Gran Absolute 0.03 0.00 - 0.04 x10(3)/mc L [facility] Blood 03/06/2022 10:1 5 AM EDT 03/06/2022 10:21 AM EDT Narrative Resulting Agency Comment Spec In Lab Maryam MUELLER HEMATOLOGY ORDERABL ES Performing Organization Address City/[facility]/ZIP Co de Phone Number [facility] [place] [address] * (ABNORMAL) Hemogram (03/06/2022 10:15 AM EDT) White Blood Cell 6.4 4.0 - 9.5 x10(3)/mc L [facility] Red Blood Cell 3.07(L) 4.00 - 5.21 x10(6)/mc L [facility] Hemoglobin 10.5(L) 11.7 - 15.5 g/dL [facility] Hematocrit 31.1(L) 35.7 - 45.8 % [facility] Mean Cell Volume 101.3(H) 82.6 - 94.4 fL [facility] Mean Cell Hemoglobin 34.2(H) 27.1 - 32.0 pg [facility] Mean Cell Hemoglobin Concentration 33.8 31.7 - 35.0 g/dL [facility] Platelet 111(L) 145 - 357 x10(3)/[facility] RDW Standard Deviation 47.2(H) 37.0 - 46.0 [facility] RDW coefficient of variation 12.9 11.5 - 14.1 % [facility] Mean Platelet Volume 11.5 7.6 - 12.9 [facility] NRBC% auto 0.0 % [facility] NRBC Absolute 0.000 0.000 - 0.000 x10(3)/ L [facility] Blood 03/06/2022 10:1 5 AM EDT 03/06/2022 10:21 AM EDT Narrative Resulting Agency Comment Spec In Lab Maryam MUELLER HEMATOLOGY ORDERABL ES [facility] [place] [address] * Phosphorus (03/06/2022 10:15 AM EDT) Phosphorus 3.3 2.5 - 4.5 mg/dL [facility] Blood 03/06/2022 10:1 5 AM EDT 03/06/2022 10:21 AM EDT Narrative Resulting Agency Comment Spec In Lab Shania Will MD CHEMISTRY ORDERABLE S [facility] [place] [address] * Magnesium (03/06/2022 10:15 AM EDT) Magnesium 0.69 0.69 - 1.07 mmol/L [facility] Blood 03/06/2022 10:1 5 AM EDT 03/06/2022 10:21 AM EDT Narrative Resulting Agency Comment Spec In Lab Shania Will MD CHEMISTRY ORDERABLE S Performing Organization Address City/[facility]/ZIP Co de Phone Number [facility] [place] [address] * (ABNORMAL) Basic Metabolic Panel (non-fasting) (03/06/2022 10:15 AM EDT) Glucose 155 65 - 199 mg/dL [facility] Comment:Diabetes: >=200 mg/d L plus symptoms Blood Urea Nitrogen 29(H) 8 - 18 mg/dL [facility] Creatinine 1.25(H) 0.70 - 1.20 mg/dL [facility] Sodium 134(L) 135 - 145 mmol/L [facility] [...] mmol/L [facility] Carbon Dioxide 23 22 - 31 mmol/L [facility] Anion Gap 10 5 - 15 mmol/L [facility] Calcium 8.9 8.5 - 10.5 mg/dL [facility] Est Glomerular Filtration Rate 45(L) >=60 mL/min/1. 73 m?? [facility] Comment: This patient's estimated GFR [...] Organization Address City/State/[place] Co de Phone Number [facility] [place] [address] * (ABNORMAL) Differential, Automated (03/06/2022 4:29 AM EDT) Neutrophil % 90.5 % [facility] Neutrophil Absolute 4.47 1.70 - 6.10 x10(3)/mc L [facility] Lymph % 6.9 % [facility] Lymphocytes Abs 0.3(L) 0.9 - 3.2 x10(3)/mc L [facility] Monocyte % 2.2 % [facility] Monocyte Abs 0.1(L) 0.3 - 0.9 x10(3)/mc L [facility] Eos % 0.0 % [facility] Eosinophils Abs 0.0 0.0 - 0.4 x10(3)/mc L [facility] Basophil % 0.2 % [facility] Baso Absolute 0.0 0.0 - 0.1 x10(3)/mc L [facility] Immature Gran % 0.20 % [facility] Comment: Immature granulocytes(IG's)percentage and absolute count will include metamyelocytes, myelocytes, and promyelocytes. Blood smears from CBCs yielding IG's will be scanned manually for concordance. If this scan disagrees with the automated IG or if promyelocytes are noted, a manual differential will be performed. Immature Gran Absolute 0.01 0.00 - 0.04 x10(3)/[facility] Blood 03/06/2022 4:29 AM EDT 03/06/2022 4:49 AM EDT Narrative Resulting Agency Comment Spec In Lab Prakash Mendez MD HEMATOLOGY ORDERABLE S [facility] [place] [address] * (ABNORMAL) Hemogram (03/06/2022 4:29 AM EDT) White Blood Cell 4.9 4.0 - 9.5 x10(3)/[facility] Red Blood Cell 3.08(L) 4.00 - 5.21 x10(6)/[facility] Hemoglobin 10.5(L) 11.7 - 15.5 g/dL [facility] Hematocrit 31.0(L) 35.7 - 45.8 % [facility] Mean Cell Volume 100.6(H) 82.6 - 94.4 fL [facility] Mean Cell Hemoglobin 34.1(H) 27.1 - 32.0 pg [facility] Mean Cell Hemoglobin Concentration 33.9 31.7 - 35.0 g/dL [facility] Platelet 104(L) 145 - 357 x10(3)/[facility] RDW Standard Deviation 47.5(H) 37.0 - 46.0 fL [facility] RDW coefficient of variation 12.9 11.5 - 14.1 % [facility] Mean Platelet Volume 11.8 7.6 - 12.9 fL [facility] NRBC% auto 0.0 % [facility] NRBC Absolute 0.000 0.000 - 0.000 x10(3)/mc L [facility] Blood 03/06/2022 4:29 AM EDT 03/06/2022 4:49 AM EDT Narrative Resulting Agency Comment Spec In Lab Prakash Mendez MD HEMATOLOGY ORDERABLE S [facility] [place] [address] * (ABNORMAL) Basic Metabolic Panel (non-fasting) (03/06/2022 4:29 AM EDT) Glucose 140 65 - 199 mg/dL [facility] Comment:Diabetes: >=200 mg/d L plus symptoms Blood Urea Nitrogen 31(H) 8 - 18 mg/dL [facility] Creatinine 1.32(H) 0.70 - 1.20 mg/dL [facility] Sodium 136 135 - 145 mmol/L [facility] Potassium 5.3(H) 3.5 - 5.0 mmol/L [facility] Comment: Please note: ??Patients with WBC >100,000 may have falsely elevated Potassium levels. ??For accurate Potassium quantification in these patients send serum separator tube (gold top) for subsequent determinations. ??Contact the Clinical Chemistry Laboratory if there are any questions. Chloride 103 98 - 107 mmol/L [facility] Carbon Dioxide 23 22 - 31 mmol/L [facility] Anion Gap 10 5 - 15 mmol/L [facility] Calcium 9.0 8.5 - 10.5 mg/dL [facility] Est Glomerular Filtration Rate 42(L) >=60 mL/min/1. 73 m?? [facility] Comment: This patient's estimated GFR [...] [facility]/ZIP Co de Phone Number [facility] [place] [address] * POCT Glucose (03/05/2022 12:18 PM EDT) Glucose, POC 94 65 - 199 mg/dL [facility] Comment: Supplemental ranges: <140 mg/dL before meals <180 mg/dL all other times of the day Blood 03/05/2022 12:1 8 PM EDT 03/05/2022 12:18 PM EDT Shania Will MD POINT OF CARE TEST ORDERABLES Performing Organization Address City/[facility]/ZIP Co de Phone Number [facility] [place] [address] documented in this encounter Visit Diagnoses Not [...] Unit) documented in this encounter Care Teams Safety Risk Lead Relationship Specialty Start Date End Date Ana Her MD [address] [facility] [address] [place] [address] PCP - General 07/29/13 documented as of this encounter
--- OUTSIDE RECORDS SUMMARY | 2024-06-01 10:02 | XMS_ITS | Encounter Summary ---
[place] [address] Care Team Providers Care Manager Underwriting Name Role Phone Ana Her MD Primary Care Provider [phone] Encounter Details Date Type Department Care Team (Late st Contact Info) Description 02/04/2022 12:00 PM EDT [place] [address] Social History Tobacco Use Types Packs/Day Years [...] filedocumented in this encounter Care Teams Manager Underwriting Relationship Specialty Start Date End Date Ana Her MD [address] [place] [address] PCP - General 07/29/13 documented as of this encounter
--- OUTSIDE RECORDS SUMMARY | 2024-06-01 10:02 | XMS_ITS | Encounter Summary ---
[place] [address] Care Team Providers Care Vehicle Detailer Name Role Phone Ana Her MD Primary Care Provider [phone] Reason for Visit * Auth/Cert Specialty Diagnoses / Procedures Referred By Christiano hackett Referred To Contact Diagnoses S/P repair of paraesophageal hernia Post-Op monitoring Procedures PRO LAPARSCOPY REPAIR PARAESOPHAGEAL HERNIA INCL FUNDOPLASTY W/O MESH LAPAROSCOPIC PARAESOPHAGEAL HERNIA REPAIR W/FUNDOPLASTY, W/O MESH (WRVU 26.6) MODIFIER TOUPET FUNDOPLASTY Laura Will MD [facility] [place] [address] [facility] Referral ID Status Reason Start Date Expiration Date Visits Re quested Visits Authorized [id number] 1 1 Encounter Details Date Type Department Care Team (Late st Contact Info) Description 03/05/2022 1:58 PM EDT Anesthesia Event [place] [id number] Alisa Naqvi MD [facility] [place] [address] Alessia Ramirez [place] [address] Anesthesia Record Procedure Summary Procedure Name Responsible [...] Procedure Summary Date: 03/05/22 Room / Location: [address] MAIN OR Anesthesia Start: 8 Anesthesia Stop: 1823 Procedures: LAPAROSCOPIC PARAESOPHAGEAL HERNIA REPAIR W/FUNDOPLASTY, W/O MESH (WRVU 26.6) (N/A Abdomen) MODIFIER TOUPET FUNDOPLASTY (N/A Abdomen) Diagnosis: (Paraesophageal Hernia) Surgeons: Laura Will MD Responsible Provider: Alisa Naqvi MD Anesthesia Type: general ASA Status: 3 All Anesthesia Providers: Anesthesiologist: Brayan Hubbard MD; Alisa Naqvi MD; Dario Franco MD Tester Equipment: Mo Vance DO Vitals Value Taken Time BP 125/75 03/05/22 1821 Temp Pulse 77 03/05/22 1823 Resp 18 03/05/22 1823 SpO2 100 % 03/05/22 182 Pain Level Vitals shown include unvalidated device data. Patient Location: PACU/[facility] Level of Consciousness: Awake and Alert [...] of left breast of female, estrogen receptor mlpztihn68/25/2017 ??? Bicuspid aortic valve 06/10/2016 ??? Dyspnea [...] by Malika Chen MD at [facility] MAIN OR ??? PRO INTRAOP SENTINEL LYMPH ID W/DYE INJECTION Left 03/30/2017 INTRAOPERATIVE ID (MAPPING) SENTINEL LYMPH NODE,INCLUDES INJECTION (WRVU 2.5) performed by Malika Chen MD at [facility] MAIN OR ??? PRO MASTECTOMY PARTIAL Left 03/30/2017 MASTECTOMY PARTIAL (WRVU 10.13) performed by Malika Chen MD at [facility] MAIN OR ??? PRO UPPER GI ENDOSCOPY, DIAGNOSTIC N/A 01/08/2022 EGD, UPPER GI ENDOSCOPY performed by Laura Will MD at [facility] MAIN OR Social History Tobacco [...] sneeze Cardiac Hx: Exercise stress test 10/07/21 [facility]: Resting electrocardiogram showed atrial fibrillation, right BBB, left anterior fascicular block. Patient achieved 4.64METS, achieved 93% of predicted HR for age. Electrocardiographic portion of test negative for ischemia. MPI negative for ischemia or infarction. EF 45%. Wall motion normal. ?? Echo 06/19/21 ([facility]): normal biventricular size and function, symmetric [...] PONV ppx Mo Shreyas DO Pinky 03/04/2022 Global Compensation Director Pager #[phone] Region - Other Informed Consent: Anesthetic plan [...] GERD (omeprazole) ?? Exercise stress test 10/07/21 [facility]: Resting electrocardiogram showed atrial fibrillation, right BBB, left anterior fascicular block. Patient achieved 4.64METS, achieved 93% of predicted HR for age. Electrocardiographic portion of test negative for ischemia. MPI negative for ischemia or infarction. EF 45%. Wall motion normal. ?? Echo 06/19/21 ([facility]): normal biventricular size and function, [...] view ?? Followed by cardiology at [facility], notes under Care Everywhere. Last seen [...] mg documented in this encounter Care Teams Vehicle Detailer Relationship Specialty Start Date End Date Ana Her MD [address] [facility] [address] [place] [address] PCP - General 07/29/13 documented as of this encounter
--- OUTSIDE RECORDS SUMMARY | 2024-06-01 10:02 | XMS_ITS | Encounter Summary ---
Author Organization [facility] [place] [address] Care Team Providers Care Leather Lacer Name Role Phone Ana Her MD Primary Care Provider [phone] Encounter Details Date Type Department Care Team (Late st Contact Info) Description 03/09/2022 Telephone [place] [address] Prakash Mendez MD [facility] [place] [address] Social History Tobacco Use Types Packs/Day Years [...] the mobile number listed in her chart ([phone]). Her other daughter answered the phone and reported that she had just dropped her off in the Emergency Department at [facility] and parked the car. She was walking back to the building to be with her. I reassured her that going to the Emergency Department seemed like a reasonable plan. I assured her that we are always happy to see her here at [facility] anytime and that they could call back anytime with further questions or concerns. This note will be routed to the provider mentioned above. Prakash Mendez MD documented in this encounter Plan of Treatment Not on file documented as of this encounter Visit Diagnoses Not on filedocumented in this encounter Care Teams Leather Lacer Relationship Specialty Start Date End Date Ana Her MD [address] [place] [address] PCP - General 07/29/13 documented as of this encounter
--- OUTSIDE RECORDS SUMMARY | 2024-06-01 10:02 | XMS_ITS | Encounter Summary ---
Author Organization [facility] [place] [address] Care Team Providers Care Motor Vehicle Dispatcher Name Role Phone Ana Her MD Primary Care Provider [phone] Encounter Details Date Type Department Care Team (Late st Contact Info) Description 03/09/2022 11:00 PM EST Ancillary Procedure Radiology Library at [facility] [place] [address] Ana Her MD [address] [place] [address] [facility] [address] [place], [place] [id number] Social History Tobacco Use Types Packs/Day Years [...] CT Chest (03/09/2022 10:56 PM EST) Narrative [facility] - 03/09/2022 10:56 PM EST This exam is auto-finalizing. It's purpose is for storage only. Ana Her MD IM FILM LIBRARY ORD ERABLES [place], [place] documented in this encounter Visit Diagnoses Not on filedocumented in this encounter Care Teams Motor Vehicle Dispatcher Relationship Specialty Start Date End Date Ana Her MD [address] [facility] [address] [place] [address] PCP - General 07/29/13 documented as of this encounter
--- OUTSIDE RECORDS SUMMARY | 2024-06-01 10:02 | XMS_ITS | Encounter Summary ---
[place] [address] Care Team Providers Care Plate Shop Helper Name Role Phone Ana Her MD Primary Care Provider [phone] Encounter Details Date Type Department Care Team (Late st Contact Info) Description 02/03/2023 Telephone H[place]ology [place] [phone] Maryam Barrett Social History Tobacco Use Types [...] on filedocumented in this encounter Care Teams Plate Shop Helper Relationship Specialty Start Date End Date Ana Her MD [address] [place] [address] PCP - General 07/29/13 documented as of this encounter
--- OUTSIDE RECORDS SUMMARY | 2024-06-01 10:02 | XMS_ITS | Encounter Summary ---
[place] [address] Care Team Providers Care Senior Director Finance Name Role Phone Ana Her MD Primary Care Provider [phone] Reason for Visit * Auth/Cert Specialty Diagnoses / Procedures Referred By Christiano hackett Referred To Contact Diagnoses S/P repair of paraesophageal hernia Post-Op monitoring Procedures PRO LAPARSCOPY REPAIR PARAESOPHAGEAL HERNIA INCL FUNDOPLASTY W/O MESH LAPAROSCOPIC PARAESOPHAGEAL HERNIA REPAIR W/FUNDOPLASTY, W/O MESH (WRVU 26.6) MODIFIER TOUPET FUNDOPLASTY Shania Will MD [facility] [place] [address] [facility] Referral ID Status Reason Start Date Expiration Date Visits Re quested Visits Authorized [id number] 1 1 Encounter Details Date Type Department Care Team (Latest Contact Info) Description 03/05/2022 11:55 AM EDT - 03/07/2022 10:00 AM EDT Hospital Encounter [place] [phone] Shania Will MD [facility] [place] [place] [address] Discharge Disposition: Home Social History Tobacco Use [...] of left breast of female, estrogen receptor sifhindeZ40.512, Z17.0 ??? Anemia D64.9 ??? Aortic valve [...] Per chart review, her creatinine levels in 3540-4125 ranged from 0.87-1.50 indicative of possible undiagnosed [...] PM Shania Will MD [place] [facility] [place]rive at: Teacher Aide Area [phone] Instructions Given to Patient at Discharge: Patient [...] hours please call the Surgery Clinic at [phone] before 5 PM on weekdays. For questions after hours and on weekends please call the hospital booster pump operator at [phone] and ask for the General Surgery resident non profit financial controller. They may not be familiar with [...] post Sly diet, as instructed by the data programmer in the hospital for a period of [...] renal function. Please call the clinic at [phone] to confirm or reschedule. Future Appointments Date Time Provider Department Center 04/03/2022 12:00 PM Shania Will MD [facility] [place] [facility] General Instructions None Future Appointments and Orders Future Appointments and Orders Future Appointments Provider Department Dept Phone 04/03/2022 12:00 PM Shania Will MD General Surgery at [facility] Arrive at: Teacher Aide Area Signed: Shena Harden MD 03/07/22 7:18 AM [facility] Primary [place] Physician: MD Geovany [address] DR [facility] [address] documented in this encounter Discharge Instructions * [...] hours please call the Surgery Clinic at [phone] before 5 PM on weekdays. For questions after hours and on weekends please call the hospital booster pump operator at [phone] and ask for the General Surgery resident non profit financial controller. They may not be familiar with [...] post Sly diet, as instructed by the data programmer in the hospital for a period of [...] renal function. Please call the clinic at [phone] to confirm or reschedule. Future Appointments Date Time Provider Department Center 04/03/2022 12:00 PM Shania Will MD [facility] [place] [facility] documented in this encounter [...] Ocampo RN - 03/07/2022 10:25 AM EDT [facility] Short Stay Unit Discharge Note All [...] Sly Diet Education to pt Digna Olson. Hockey Instructor metwith pt at bedside to deliver [...] she is noticing some overall improvement post op.Hockey Instructor took note of this and encouraged [...] Department contact information provided. Pt appreciate of check writer's time. Nutrition to follow as needed. [...] Perez MD 03/05/2022 Minimally Invasive Surgery Pager #[phone] * Lorrie Slater RN - 03/05/2022 6:46 [...] ?? She is followed by cardiology at [facility], and is on xarelto. ?? Impression: ??Symptomatic [...] of left breast of female, estrogen receptor olmshegxR19.512, Z17.0 ??? Anemia D64.9 ??? Aortic valve [...] [facility] MAIN OR ??? PRO MASTECTOMY PARTIAL Left 03/30/2017 ?? MASTECTOMY PARTIAL (WRVU 10.13) performed by Malika Chen MD at [facility] MAIN OR ?? Cholecystectomy ?? Medications: [...] Operative Note Patient Name: Digna Olson : [id number] MR#: [id number] Case Date: 03/05/2022 Surgeon: Surgeon(s) and Role: [...] Flores MD - 03/05/2022 2:32 PM EDT [facility] Operative Note Patient Name: Digna Olson : [id number] MR#: [id number] Case Date: 03/05/2022 Surgeon: Surgeon(s) and Role: [...] Repair Paraesophageal Hernia Incl Fundoplasty W/O Mesh ([id number]) 03/05/2022 1:58 PM EDT Paraesophageal Hernia POCT GLUCOSE Routine 03/05/2022 12:18 PM EDT LAPAROSCOPIC PARAESOPHAGEAL HERNIA REPAIR W FUNDOPLASTY, W/O MESH Routine 03/05/2022 12:02 PM EDT documented in this encounter Results * (ABNORMAL) Differential, Automated (03/07/2022 5:08 AM EDT) Neutrophil % 80.0 % [facility] Neutrophil Absolute 5.30 1.70 - 6.10 x10(3)/mc L [facility] Lymph % 12.1 % [facility] Lymphocytes Abs 0.8(L) 0.9 - 3.2 x10(3)/mc L [facility] Monocyte % 7.6 % [facility] Monocyte Abs 0.5 0.3 - 0.9 x10(3)/mc L [facility] Eos % 0.0 % [facility] Eosinophils Abs 0.0 0.0 - 0.4 x10(3)/mc L [facility] Basophil % 0.0 % [facility] Baso Absolute 0.0 [...] [facility] Co de Phone Number [facility] [place] [address] * (ABNORMAL) Hemogram (03/07/2022 5:08 AM EDT) [...] HOSPITAL LABORATORY Platelet 110(L) 145 - 357 x10(3)/[facility] RDW Standard Deviation 47.5(H) 37.0 - 46.[address] [facility] RDW coefficient of variation 12.9 11.5 - 14.1 % [facility] Mean Platelet Volume 11.7 7.6 - 12.[address] [facility] NRBC% auto 0.0 % [facility] NRBC Absolute 0.000 0.000 - 0.000 x10(3)/mc L [facility] Blood 03/07/2022 5:08 AM EDT 03/07/2022 5:19 AM EDT Narrative Resulting Agency Comment Spec In Lab Nino Levy MD HEMATOLOGY ORDERABLE S [facility] [place] [address] * Phosphorus (03/07/2022 5:08 AM EDT) Phosphorus 2.7 2.5 - 4.5 mg/dL [facility] Blood 03/07/2022 5:08 AM EDT 03/07/2022 5:19 AM EDT Narrative Resulting Agency Comment Spec In Lab Shania Will MD CHEMISTRY ORDERABLE S Performing Organization Address City/[facility]/ZIP Co de Phone Number [facility] [place] [address] * Magnesium (03/07/2022 5:08 AM EDT) Magnesium 0.89 0.69 - 1.07 mmol/L [facility] Blood 03/07/2022 5:08 AM EDT 03/07/2022 5:19 AM EDT Narrative Resulting Agency Comment Spec In Lab Shania Will MD CHEMISTRY ORDERABLE S [facility] [place] [address] * (ABNORMAL) Basic Metabolic Panel (non-fasting) (03/07/2022 [...] Lab Shania Will MD [place] [address] * (ABNORMAL) Differential, Automated (03/06/2022 10:15 AM EDT) Pathologist [facility] Neutrophil % 90.7 % [facility] Neutrophil Absolute 5.79 1.70 - 6.10 x10(3)/ L [facility] Lymph % 5.0 % [facility] Lymphocytes Abs 0.3(L) 0.9 - 3.2 x10(3)/ L [facility] Monocyte % 3.8 % [facility] Monocyte Abs 0.2(L) 0.3 - 0.9 x10(3)/[facility] Eos % 0.0 % [facility] Eosinophils Abs 0.0 0.0 - 0.4 x10(3)/[facility] Basophil % 0.0 % [facility] Baso Absolute 0.0 [...] Absolute 0.03 0.00 - 0.04 x10(3)/ L [facility] Blood 03/06/2022 10:1 5 AM EDT 03/06/2022 10:21 AM EDT Narrative Resulting Agency Comment Spec In Lab Maryam MUELLER [place] [address] * (ABNORMAL) Hemogram (03/06/2022 10:15 AM EDT) [...] Platelet 111(L) 145 - 357 x10(3)/ L [facility] RDW Standard Deviation 47.2(H) 37.0 - 46.[address] [facility] RDW coefficient of variation 12.9 11.5 - 14.1 % [facility] Mean Platelet Volume 11.5 7.6 - 12.[address] [facility] NRBC% auto 0.0 % [facility] NRBC Absolute 0.000 0.000 - 0.000 x10(3)/mc L [facility] Blood 03/06/2022 10:1 5 AM EDT 03/06/2022 10:21 AM EDT Narrative Resulting Agency Comment Spec In Lab Maryam MUELLER HEMATOLOGY ORDERABL ES [facility] [place] [address] * Phosphorus (03/06/2022 10:15 AM EDT) Phosphorus 3.3 2.5 - 4.5 mg/dL [facility] Blood 03/06/2022 10:1 5 AM EDT 03/06/2022 10:21 AM EDT Narrative Resulting Agency Comment Spec In Lab Shania Will MD CHEMISTRY ORDERABLE S Performing Organization Address City/[facility]/ZIP Co de Phone Number [facility] [place] [address] * Magnesium (03/06/2022 10:15 AM EDT) Magnesium 0.69 0.69 - 1.07 mmol/L [facility] Blood 03/06/2022 10:1 5 AM EDT 03/06/2022 10:21 AM EDT Narrative Resulting Agency Comment Spec In Lab Shania Will MD CHEMISTRY ORDERABLE S Performing Organization Address [facility] Co de Phone Number [facility] [place] [address] * (ABNORMAL) Basic Metabolic Panel (non-fasting) (03/06/2022 10:15 AM EDT) Pathologist [facility] Glucose 155 65 - 199 mg/dL [facility] [...] [facility] Co de Phone Number [facility] [place] [address] * (ABNORMAL) Differential, Automated (03/06/2022 4:29 AM EDT) Neutrophil % 90.5 % [facility] Neutrophil Absolute 4.47 1.70 - 6.10 x10(3)/mc L [facility] Lymph % 6.9 % [facility] Lymphocytes Abs 0.3(L) 0.9 - 3.2 x10(3)/mc L [facility] Monocyte % 2.2 % [facility] Monocyte Abs 0.1(L) 0.3 - 0.9 x10(3)/mc L [facility] Eos % 0.0 % [facility] Eosinophils Abs 0.0 0.0 - 0.4 x10(3)/mc L [facility] Basophil % 0.2 % [facility] Baso Absolute 0.0 [...] Absolute 0.01 0.00 - 0.04 x10(3)/ L [facility] Blood 03/06/2022 4:29 AM EDT 03/06/2022 4:49 AM EDT Narrative Resulting Agency Comment Spec In Lab Prakash Mendez MD HEMATOLOGY ORDERABLE S [facility] [place] [address] * (ABNORMAL) Hemogram (03/06/2022 4:29 AM EDT) White Blood Cell 4.9 4.0 - 9.5 x10(3)/ L [facility] Red Blood Cell 3.08(L) 4.00 - 5.21 x10(6)/ L [facility] Hemoglobin 10.5(L) [...] Platelet 104(L) 145 - 357 x10(3)/ L [facility] [...] HEMATOLOGY ORDERABLE S [facility] [place] [address] * (ABNORMAL) Basic Metabolic Panel (non-fasting) (03/06/2022 [...] CHEMISTRY ORDERABLE S [facility] [place] [address] * POCT Glucose (03/05/2022 12:18 PM EDT) Glucose, POC 94 65 - 199 mg/dL [facility] Comment: Supplemental ranges: <140 mg/dL before meals <180 mg/dL all other times of the day Blood 03/05/2022 12:1 8 PM EDT 03/05/2022 12:18 PM EDT Shania Will MD POINT OF CARE TEST ORDERABLES Performing Organization Address City/[facility]/ZIP Co de Phone Number [facility] [place] [address] documented in this encounter Visit Diagnoses Diagnosis [...] Provider: Olga Ocampo, CONNIE)2239 (Given - Provider: Tamanan Villalobos LPN) 0503 (Given - Provider: Tamanna [...] Unit) documented in this encounter Care Teams Senior Director Finance Relationship Specialty Start Date End Date Ana Her MD [address] [place] [address] PCP - General 07/29/13 documented as of this encounter
--- OUTSIDE RECORDS SUMMARY | 2024-06-01 10:02 | XMS_ITS | Encounter Summary ---
[place] [address] Care Team Providers Care Endodontics Dentist Name Role Phone Ana Her MD Primary Care Provider [phone] Encounter Details Date Type Department Care Team (Late st Contact Info) Description 12/17/2021 Telephone [place] [address] Roma Estrada RN Social History Tobacco Use [...] on filedocumented in this encounter Care Teams Endodontics Dentist Relationship Specialty Start Date End Date Ana Her MD [address] [place] [address] PCP - General 07/29/13 documented as of this encounter
--- OUTSIDE RECORDS SUMMARY | 2024-06-01 10:02 | XMS_ITS | Encounter Summary ---
Author Organization [facility] [place] [address] Care Team Providers Care Insurance Administrator Name Role Phone Ana Her MD Primary Care Provider Encounter Details Date Type Department Care Team (Late st Contact Info) Description 03/10/2022 1:35 AM EST Ancillary Procedure Radiology Library at [facility] [place] [address] Ana Her MD [address] [place] [address] [address] [place], [place] [id number] Social History Tobacco Use Types Packs/Day Years [...] CT Chest (03/10/2022 1:31 AM EST) Narrative [facility] - 03/10/2022 1:31 AM EST This exam is auto-finalizing. It's purpose is for storage only. Ana Her MD IM FILM LIBRARY ORD ERABLES [place], [place] documented in this encounter Visit Diagnoses Not on filedocumented in this encounter Care Teams Insurance Administrator Relationship Specialty Start Date End Date Ana Her MD [facility] [address] [place] [address] PCP - General 07/29/13 documented as of this encounter
--- OUTSIDE RECORDS SUMMARY | 2024-06-01 10:02 | XMS_ITS | Encounter Summary ---
[place] [address] Care Team Providers Care Mold Maker Plaster Name Role Phone Ana Her MD Primary Care Provider [phone] Encounter Details Date Type Department Care Team (Late st Contact Info) Description 10/23/2022 Telephone Mammography/[place] [address] Aby Loredo Social History Tobacco Use Types [...] filedocumented in this encounter Care Teams Mold Maker Plaster Relationship Specialty Start Date End Date Ana Her MD [address] [place] [address] PCP - General 07/29/13 documented as of this encounter
--- OUTSIDE RECORDS SUMMARY | 2024-06-01 10:02 | XMS_ITS | Encounter Summary ---
[place] [address] Care Team Providers Care Tape Maker Name Role Phone Ana Her MD Primary Care Provider [phone] Encounter Details Date Type Department Care Team (Late st Contact Info) Description 12/24/2021 Telephone [place] [phone] Chelsie Lauren Social History Tobacco Use Types [...] on filedocumented in this encounter Care Teams Tape Maker Relationship Specialty Start Date End Date Ana Her MD [address] [place] [address] PCP - General 07/29/13 documented as of this encounter
--- OUTSIDE RECORDS SUMMARY | 2024-06-01 10:02 | XMS_ITS | Encounter Summary ---
Author Organization [facility] [place] [address] Care Team Providers Care Paleobotanist Name Role Phone Ana Her MD Primary Care Provider [phone] Reason for Visit * Consultation (Routine) - Closed Specialty Diagnoses / Procedures Referred By Christiano hackett Referred To Contact General Surgery Diagnoses Hiatal hernia Ana Her MD [address] [place] [address] [facility] Gen Surgery [address] [place] [address] Referral ID Status Reason Start Date Expiration Date V isits Requested Visits Authorized [id number] Closed Consult, Test & Treat 09/23/2021 09/23/2022 6 6 Encounter Details Date Type Department Care Team (Latest Contact Info) Description 12/05/2021 3:00 PM EDT Office Visit [place] [address] Laura Will MD [facility] [place] [address] Paraesophageal hernia Social History Tobacco [...] of left breast of female, estrogen receptor jlryrwnqH50.512, Z17.0 ??? Anemia D64.9 ??? Aortic valve [...] performed by Malika Chen MD at [facility] MAIN OR ??? PRO INTRAOP SENTINEL LYMPH ID W/DYE INJECTION Left 03/30/2017 INTRAOPERATIVE ID (MAPPING) SENTINEL LYMPH NODE,INCLUDES INJECTION (WRVU 2.5) performed by Malika Chen MD at [facility] MAIN OR ??? PRO MASTECTOMY PARTIAL Left 03/30/2017 MASTECTOMY PARTIAL (WRVU 10.13) performed by Malika Chen MD at [facility] MAIN OR Cholecystectomy Medications: Current [...] gangrene documented in this encounter Care Teams Paleobotanist Relationship Specialty Start Date End Date Ana Her MD [address] [place] [address] PCP - General 07/29/13 documented as of this encounter
--- OUTSIDE RECORDS SUMMARY | 2024-06-01 10:02 | XMS_ITS | Encounter Summary ---
Author Organization [facility] [place] [address] Care Team Providers Care Outside Sales Account Manager Name Role Phone Ana Her MD Primary Care Provider [phone] Encounter Details Date Type Department Care Team (Latest Contact Info) Description 01/08/2022 6:11 AM EDT - 01/08/2022 9:40 AM EDT Hospital Encounter [place] [phone] Laura Park MD [facility] [place] [address] Discharge Disposition: Home Social History Tobacco Use [...] a nurse in the Thoracic Clinic at [phone]. After hours or on weekends or holidays please call: [phone] and ask to speak to the Thoracic Physician vocational technical education teacher. Diet: You should follow a clear liquid [...] - 5pm): General Surgery and Bariatric Surgery [phone] Bariatric Surgeons: Drs. Park and John [phone] Underwater Trapper: [phone] Dietitians: [phone] Outside of regular business hours, including weekends and holidays: Ask for General Surgery resident vocational technical education teacher [phone] Please note, this call will be answered [...] of left breast of female, estrogen receptor pkfpsrieX17.512, Z17.0 ??? Anemia D64.9 ??? Aortic valve [...] 6.43) performed by Malika Chen MD at [facility] MAIN OR ??? PRO INTRAOP SENTINEL LYMPH ID W/DYE INJECTION Left 03/30/2017 ?? INTRAOPERATIVE ID (MAPPING) SENTINEL LYMPH NODE,INCLUDES INJECTION (WRVU 2.5) performed by Malika Chen MD at [facility] MAIN OR ??? PRO MASTECTOMY PARTIAL Left 03/30/2017 ?? MASTECTOMY PARTIAL (WRVU 10.13) performed by Malika Chen MD at [facility] MAIN OR ?? Cholecystectomy ?? Medications: ?? [...] Operative Note Patient Name: Digna Olson : [id number] MR#: [id number] Case Date: 01/08/2022 Surgeon: Surgeon(s) and Role: [...] Info Order Time SPECIMEN TO PATHOLOGY Gastric Fajardo for H Pylori Hiatal hernia Gastric Fajardo for H Pylori excision 01/08/2022 8:15 AM [...] 8:14 AM EDT Upper GI Endoscopy, Diagnostic ([id number]) Yes 01/08/2022 7:40 AM EDT Hiatal hernia [...] MD PATHOLOGY/CYTOLOGY ORDERABLES [facility] [place] [address] * Surgical Pathology Report (01/08/2022 8:14 AM EDT) Final Diagnosis [id number] ? Location: [facility]; A The signing pathologist has (i) examined the relevant preparation(s) for the specimen(s) and (ii) rendered or confirmed the diagnosis(es). . ?Surgical Pathology DIAGNOSIS A - Gastric ??Antrum for H Pylori, excision: - ??Antrum-type mucosa with reactive gastropathy. Electronically signed by: ?Umang Raymundo MD Verified: ??01/09/2022 16:36 ??Pathologist Performed at: ??-[facility] Dept. of Pathology, [place], [place] SPECIMEN(S) SUBMITTED A - Gastric ??Antrum [...] MD PATHOLOGY/CYTOLOGY ORDERABLES [facility] [place] [address] * POCT Glucose (01/08/2022 6:33 AM EDT) Glucose, POC 120 65 - 199 mg/dL [facility] Comment: Supplemental ranges: <140 mg/dL before meals <180 mg/dL all other times of the day Blood 01/08/2022 6:33 AM EDT 01/08/2022 6:33 AM EDT Laura Park MD POINT [place] [address] documented in this encounter Visit Diagnoses Not on filedocumented in this encounter Active and Recently Administered Medications Care Teams Outside Sales Account Manager Relationship Specialty Start Date End Date Ana Her MD [address] [place] [address] PCP - General 07/29/13 documented as of this encounter
--- OUTSIDE RECORDS SUMMARY | 2024-06-01 10:02 | XMS_ITS | Encounter Summary ---
Author Organization [facility] [place] [address] Care Team Providers Care Chief Revenue Officer Name Role Phone Ana Her MD Primary Care Provider [phone] Encounter Details Date Type Department Care Team (Latest Contact Info) Description 04/03/2022 12:00 PM EST TH Visit (TeleHealth) [place] [address] Laura Will MD [facility] [place] [address] Status post repair of paraesophageal diaphragmatic hernia [...] status documented in this encounter Care Teams Chief Revenue Officer Relationship Specialty Start Date End Date Ana Her MD [facility] [address] [place] [address] PCP - General 07/29/13 documented as of this encounter
--- OUTSIDE RECORDS SUMMARY | 2024-06-01 10:02 | XMS_ITS | Clinical Summary ---
Author Organization [facility] [place] [address] Care Team Providers Care Inspection Supervisor Name Role Phone Ana Her MD Primary Care Provider [phone] Allergies No known active allergies Medications Medication [...] the eliquis and has been managed by [facility]. 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 ? Jeanine Lobato HAND CIGAR MAKING SUPERVISOR IMG MAMMO ORD ERABLES * DXA Central [...] BMD measurements and plots are available in EC[employer]os[employer] under the imaging tab. Paper copies will be sent to providers without [employer] access. If you have received this report without the data sheet and do not have access to [employer], please contact Radiology Survey Project Manager at [phone] Thursday thru Thursday 8am-4pm. Thank you for letting us participate in the care of this patient. ??If you are a health care provider and have any questions regarding this report, please contact the number below. ??For patients who have questions please contact the health group care worker that requested your imaging first. [...] BMD measurements and plots are available in EPipelineDBunder the imaging tab. Paper copies will be sent to providers without E- access.If you have received this report without the data sheet and do not haveaccess to E-, please contact Radiology Survey Project Manager at [phone] Thursday thrriday 8am-4pm. Thank you for letting us participate in the care of this patient. If youare a health care provider and have any questions regarding this report,please contact the number below. For patients who have questions please contactthe health group care worker that requested your imaging first. [...] Status decision made by: Patient Care Teams Inspection Supervisor Relationship Specialty Start Date End Date Ana Her MD [facility] [address] [place] [address] PCP - General 07/29/13
--- OUTSIDE RECORDS SUMMARY | 2024-06-01 10:02 | XMS_ITS | Encounter Summary ---
Author [place] [address] Care Team Providers Care Heel Slicker Name Role Phone Ana Her MD Primary Care Provider [phone] Encounter Details Date Type Department Care Team (Late st Contact Info) Description 02/26/2022 Orders Only [place] [address] Alicia Manning RN Social History Tobacco Use [...] on filedocumented in this encounter Care Teams Heel Slicker Relationship Specialty Start Date End Date Ana Her MD [address] [place] [address] PCP - General 07/29/13 documented as of this encounter
--- OUTSIDE RECORDS SUMMARY | 2024-06-01 10:02 | XMS_ITS | Encounter Summary ---
[place] [address] Care Team Providers Care Bulk Picker Name Role Phone Ana Her MD Primary Care Provider [phone] Encounter Details Date Type Department Care Team (Late st Contact Info) Description 01/08/2022 7:30 AM EDT - 01/08/2022 8:40 AM EDT Surgery [place] [address] Laura Park MD [facility] [place] [address] EGD, UPPER GI ENDOSCOPY (WRVU 2.09) Social [...] a nurse in the Thoracic Clinic at [phone]. After hours or on weekends or holidays please call: [phone] and ask to speak to the Thoracic Physician chemistry quality control analyst. Diet: You should follow a clear [...] - 5pm): General Surgery and Bariatric Surgery [phone] Bariatric Surgeons: Drs. Park and John [phone] Distribution Superintendent: [phone] Dietitians: [phone] Outside of regular business hours, including weekends and holidays: Ask for General Surgery resident chemistry quality control analyst [phone] Please note, this call will be answered [...] of left breast of female, estrogen receptor fvipyclwW74.512, Z17.0 ??? Anemia D64.9 ??? Aortic valve [...] 6.43) performed by Malika Chen MD at [facility] MAIN OR ??? PRO INTRAOP SENTINEL LYMPH ID W/DYE INJECTION Left 03/30/2017 ?? INTRAOPERATIVE ID (MAPPING) SENTINEL LYMPH NODE,INCLUDES INJECTION (WRVU 2.5) performed by Malika Chen MD at [facility] MAIN OR ??? PRO MASTECTOMY PARTIAL Left 03/30/2017 ?? MASTECTOMY PARTIAL (WRVU 10.13) performed by Malika Chen MD at [facility] MAIN OR ?? Cholecystectomy ?? Medications: [...] Park MD - 01/08/2022 7:[address] [facility] Operative Note Patient Name: Digna Olson : [id number] MR#: [id number] Case Date: 01/08/2022 Surgeon: Surgeon(s) and Role: [...] Info Order Time SPECIMEN TO PATHOLOGY Gastric [place] for H Pylori Hiatal hernia Gastric [place] for H Pylori excision 01/08/2022 8:15 AM [...] 8:14 AM EDT Upper GI Endoscopy, Diagnostic (27877) Yes 01/08/2022 7:40 AM EDT Hiatal hernia [...] MD PATHOLOGY/CYTOLOGY ORDERABLES [facility] [place] [address] * Surgical Pathology Report (01/08/2022 8:14 AM EDT) Final Diagnosis [id number] ? Location: SDP; SD36; A The signing pathologist has (i) examined the relevant preparation(s) for the specimen(s) and (ii) rendered or confirmed the diagnosis(es). . ?Surgical Pathology DIAGNOSIS A - Gastric ??Antrum for H Pylori, excision: - ??Antrum-type mucosa with reactive gastropathy. Electronically signed by: ?Umang Raymundo MD Verified: ??01/09/2022 16:36 ??Pathologist Performed at: ??-[facility] Dept. of Pathology, [place], [place] SPECIMEN(S) SUBMITTED A - Gastric ??Antrum [...] Park MD PATHOLOGY/CYTOLOGY ORDERABLES Performing Organization Address City/State/[facility] Co de Phone Number [facility] [place] [address] * POCT Glucose (01/08/2022 6:33 AM EDT) Glucose, POC 120 65 - 199 mg/dL [facility] Comment: Supplemental ranges: <140 mg/dL before meals <180 mg/dL all other times of the day Blood 01/08/2022 6:33 AM EDT 01/08/2022 6:33 AM EDT Laura Park MD POINT [place] [address] documented in this encounter Visit Diagnoses Not on filedocumented in this encounter Active and Recently Administered Medications Care Teams Bulk Picker Relationship Specialty Start Date End Date Ana Her MD [address] [facility] [address] [place] [address] PCP - General 07/29/13 documented as of this encounter
--- OUTSIDE RECORDS SUMMARY | 2024-06-01 10:03 | XMS_ITS | Encounter Summary ---
[place] [address] Care Team Providers Care Pump And Blower Operator Name Role Phone Ana Her MD Primary Care Provider [phone] 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 * Consultation (Routine) - Closed Specialty Diagnoses / Procedures Referred By Christiano hackett Referred To Contact Plastic Surgery Diagnoses Malignant neoplasm of lower-outer quadrant of left breast of female, estrogen receptor positive Macromastia Jeanine Lobato APRN [facility] [place] [address] [facility] Plastic Surg [address] [address] Referral ID Status Reason Start Date Expiration Date V isits Requested Visits Authorized [id number] Closed Consult, Test & Treat 06/11/2021 06/11/2022 1 1 Encounter Details Date Type Department Care Team (Late st Contact Info) Description 06/11/2021 10:00 AM EST Office [place] [address] Jeanine Lobato APRN [facility] [place] [address] Encounter for follow-up surveillance of [...] this encounter Progress Notes * Jeanine Lobato, AGRICULTURAL PRODUCE PACKER - 06/11/2021 10:00 AM EST Images from [...] was obtained which revealed IDC which is ER/IL positive, Her2 negative. Alma Delia opted against [...] mm Grade Intermediate Margins Negative ER Positive IL Positive HER-2 Negative OncotypeDx Recurrence Score N/A [...] Family history of ovarian cancer No Ashkenazi Yarsanism heritage No Known genetic mutation Not tested [...] to speak almost daily. He lives in [place] and is beginning to show early signs [...] Results: Imaging performed (bilateral mammogram) at [facility] today shows no evidence of malignancy, BIRADS [...] free apps for your cell phone from [employer] (Healthy Living) and [employer] (Ensighten). All questions were answered to the patient's satisfaction and they state understanding and agreement with today's treatment plan. They are encouraged to follow up sooner if they develop any new or concerning symptoms. Jeanine Lobato APRN Surgical Oncology P [phone] F [phone] [facility] documented in this encounter Plan [...] breast documented in this encounter Care Teams Pump And Blower Operator Relationship Specialty Start Date End Date Ana Her MD [address] [place] [address] PCP - General 07/29/13 documented as of this encounter
--- OUTSIDE RECORDS SUMMARY | 2024-06-01 10:03 | XMS_ITS | Encounter Summary ---
Author Organization [facility] [place] [address] Care Team Providers Care Plastering Contractor Name Role Phone Ana Her MD Primary Care Provider [phone] Reason for Visit * Reason Comments Advice Only BBR * Consultation (Routine) - Closed Specialty Diagnoses / Procedures Referred By Christiano hackett Referred To Contact Plastic Surgery Diagnoses Malignant neoplasm of lower-outer quadrant of left breast of female, estrogen receptor positive Macromastia Jeanine Lobato APRN [facility] [place] [address] [facility] [address] [place] [address] Referral ID Status Reason Start Date Expiration Date V isits Requested Visits Authorized [id number] Closed Consult, Test & Treat 06/11/2021 06/11/2022 1 1 Encounter Details Date Type Department Care Team (Late st Contact Info) Description 07/09/2021 8:30 AM EST Office Visit [place] [address] Med Hudson MD [facility] [place] [address] Macromastia Social History Tobacco Use [...] physical with your primary care doctor and Archeology Professor clearance Two Weeks prior to Surgery Do [...] Day of Surgery You will need a trash collector truck driver. If you do not have a trash collector truck driver, your surgery will be canceled. [...] For questions pertaining to your surgical date [phone] For nursing related questions [phone] On weekends, holidays or after office hours: Call and ask the bead forming machine operator to page the Plastic Surgery Resident diamond wheel molder. documented in this encounter Progress Notes * Med Hudson MD - 07/09/2021 8:30 AM EST Plastic Surgery Consultation Note Med Hudson MD. PCP: Ana eHr MD Requesting Physician: as above Reason for [...] and was normal. This was performed at [facility]. She has completed [...] None of the time Conservative Therapy Treatments: [facility] CONSERVATIVE THERAPY TREATMENTS 07/09/2021 [...] [facility] MA[facility] OR Family History Problem Relation Age [...] surgery is best done at a realistic senior care stable weight. We talked about the outpatient [...] revisions for scarring or asymmetry.) Garcia or [place] Pattern Incision: More scarring on breast, but [...] Timeframe: Elective Procedure: Bilateral breast reduction CPT: 84494 Surgical Technique: Garcia, Pedicle Surgical site: Breasts Side: Bilateral Anesthesia: General Follow up: 1 day for drain removal; 7-10 days for HCK PAT: H+P PCP, Cardiac clearance. Need to discontinue blood thinners pre-op? Xarelto documented in this encounter Plan of Treatment Not on file documented as of this encounter Visit Diagnoses Diagnosis Macromastia Hypertrophy of breast documented in this encounter Care Teams Plastering Contractor Relationship Specialty Start Date End Date Ana Her MD [address] [place] [address] PCP - General 07/29/13 documented as of this encounter
--- OUTSIDE RECORDS SUMMARY | 2024-06-01 10:03 | XMS_ITS | Encounter Summary ---
Author Organization [facility] [place] [address] Care Team Providers Care Patient Clerical Assistant Name Role Phone Ana Her MD Primary Care Provider [phone] Reason for Visit * Reason Comments Follow-up Encounter Details Date Type Department Care Team (Late st Contact Info) Description 10/23/2017 11:00 AM EDT Office Visit [place] [address] Mayra Page APRN [facility] [place] [address] Malignant neoplasm of lower-outer quadrant of left [...] this encounter Progress Notes * Mayra Page, DOUGH SCALER AND MIXER - 10/23/2017 11:00 AM EDT Digna Olson [...] ??Excision with image-guided localization ?Lymph Node Sampling: ??[place] lymph node(s) ?Specimen Laterality: ??Left Tumor ?Histologic [...] ??DCIS not present in specimen Lymph Nodes ?[place] Lymph Nodes: [place] lymph node biopsy performed ?Number of [place] Nodes Examined: ??3 ?Number of Lymph Node(s) Examined (sentinel and nonsentinel): 3 ?Lymph Node Involvement: None identified Stage (pTNM) ?Pathological Stage: ?? pT1b pN0 PMH: Past Medical History: Diagnosis Date ??? Breast cancer ??? Fracture of tibia 12/2016 left tibial plateau ??? GERD (gastroesophageal reflux disease) ??? H/O non-insulin dependent diabetes mellitus ??? Spinal stenosis Most recent DEXA scan was 10/28/16 at [facility]. There is no [...] positive documented in this encounter Care Teams Patient Clerical Assistant Relationship Specialty Start Date End Date Ana Her MD [address] [place] [address] PCP - General 07/29/13 documented as of this encounter
--- OUTSIDE RECORDS SUMMARY | 2024-06-01 10:03 | XMS_ITS | Encounter Summary ---
[place] [address] Care Team Providers Care Short Filler Bunch Machine Operator Name Role Phone Ana Her MD Primary Care Provider [phone] 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 * Consultation (Routine) - Closed Specialty Diagnoses / Procedures Referred By Christiano hackett Referred To Contact General Surgery Diagnoses Hiatal hernia Ana Her MD [address] [place] [address] [facility] Gen Surgery [address] [place] [phone] Referral ID Status Reason Start Date Expiration Date V isits Requested Visits Authorized [id number] Closed Consult, Test & Treat 09/23/2021 09/23/2022 6 6 Encounter Details Date Type Department Care Team (Late st Contact Info) Description 09/23/2021 Transcribe Orders eDH Incoming Referrals [phone] Ana Her MD [address] [place] [address] Hiatal hernia Social History Tobacco [...] gangrene documented in this encounter Care Teams Short Filler Bunch Machine Operator Relationship Specialty Start Date End Date Ana Her MD [address] [place] [address] PCP - General 07/29/13 documented as of this encounter
--- OUTSIDE RECORDS SUMMARY | 2024-06-01 10:03 | XMS_ITS | Encounter Summary ---
[place] [address] Care Team Providers Care Gasket Former Name Role Phone Ana Her MD Primary Care Provider [phone] Encounter Details Date Type Department Care Team (Late st Contact Info) Description 06/12/2021 Telephone [place] [address] Chelsie Lauren Social History Tobacco Use Types [...] on filedocumented in this encounter Care Teams Gasket Former Relationship Specialty Start Date End Date Ana Her MD [address] [place] [address] PCP - General 07/29/13 documented as of this encounter
--- OUTSIDE RECORDS SUMMARY | 2024-06-01 10:03 | XMS_ITS | Encounter Summary ---
[place] [address] Care Team Providers Care Conical Mixer Name Role Phone Ana Her MD Primary Care Provider [phone] Encounter Details Date Type Department Care Team (Late st Contact Info) Description 11/09/2018 2:45 PM EDT Office Visit Hematology [place] [address] Ricky Lowry MD Malignant neoplasm of lower-outer [...] ??Excision with image-guided localization ?Lymph Node Sampling: ??[place] lymph node(s) ?Specimen Laterality: ??Left Tumor ?Histologic [...] ??DCIS not present in specimen Lymph Nodes ?[place] Lymph Nodes: [place] lymph node biopsy performed ?Number of [place] Nodes Examined: ??3 ?Number of Lymph Node(s) [...] A Fib. Cardiology at [facility]. S/P successful cardioversion [...] laterality documented in this encounter Care Teams Conical Mixer Relationship Specialty Start Date End Date Ana Her MD [address] [place] [address] PCP - General 07/29/13 documented as of this encounter
--- OUTSIDE RECORDS SUMMARY | 2024-06-01 10:03 | XMS_ITS | Encounter Summary ---
[place] [address] Care Team Providers Care Sterile Processing Tech Name Role Phone Ana Her MD Primary Care Provider [phone] Encounter Details Date Type Department Care Team (Late st Contact Info) Description 03/30/2017 11:19 AM EST Anesthesia Event [place] [address] Bridgette Mclaughlin MD Collins, Sarah J, FAMILY HELPER [address] [place] [address] Anesthesia Record Procedure Summary Procedure Name Responsible [...] RA#[id number]) 03/30/17 1146 by 12/30/21 1715 by aKtia Bush Incision 03/30/17; mid axillary; 12/30/21 (LDA cleanup utility RA#[id number]); 1715 (LDA cleanup utility RA#[id number]) 03/30/17 0000 by Paris Taylor RN 12/30/21 1715 by Katia Bush (RETIRED) Peripheral IV Line - Single Lumen 03/30/17; 0815; median cubital vein (antecubital fossa), right; dyyu-grm-izggis catheter system; 20 gauge, 1 in length; [...] Bridgette Mclaughlin - 03/30/2017 2:13 PM EST [facility] Department of Anesthesiology Post-procedure Note Patient: Digna Olson Procedure Summary Date Anesthesia Start Anesthesia Stop Room / Location 03/30/17 1119 1239 [facility] OR 24 / MH MAIN [...] All Anesthesia Providers: Anesthesiologist: Bridgette Mclaughlin MD FAMILY HELPER: Laura Koo CRNA Most Recent Vitals: 03/30/17 [...] risks discussed with patient. Plan discussed with FAMILY HELPER. [facility] Staff Note documented in this encounter Plan [...] r documented in this encounter Care Teams Sterile Processing Tech Relationship Specialty Start Date End Date Ana Her MD [facility] [address] [place] [address] PCP - General 07/29/13 documented as of this encounter
--- OUTSIDE RECORDS SUMMARY | 2024-06-01 10:03 | XMS_ITS | Encounter Summary ---
[place] [address] Care Team Providers Care Lead Technical Writer Name Role Phone Ana Her MD Primary Care Provider Reason for Visit * Reason Comments Follow-up Encounter Details Date Type Department Care Team (Late st Contact Info) Description 11/29/2019 2:45 PM EDT Office Visit Hematology [place] [address] Ricky Lowry MD Malignant neoplasm of lower-outer [...] ??Excision with image-guided localization ?Lymph Node Sampling: ??[place] lymph node(s) ?Specimen Laterality: ??Left Tumor ?Histologic [...] ??DCIS not present in specimen Lymph Nodes ?[place] Lymph Nodes: [place] lymph node biopsy performed ?Number of [place] Nodes Examined: ??3 ?Number of Lymph Node(s) [...] Spinal stenosis > A Fib. Cardiology at [facility]. S/P successful cardioversion May 2018. DEXA scan [...] positive documented in this encounter Care Teams Lead Technical Writer Relationship Specialty Start Date End Date Ana Her MD [address] [place] [address] PCP - General 07/29/13 documented as of this encounter
--- OUTSIDE RECORDS SUMMARY | 2024-06-01 10:03 | XMS_ITS | Encounter Summary ---
Author Organization Count Includes [facility] [address] Care Team Providers Care Home Care Consultant Name Role Phone Ana Her MD Primary Care Provider [phone] Encounter Details Date Type Department Care Team (Latest Contact Info) Description 05/31/2019 10:16 AM EST - 05/31/2019 11:59 PM EST Hospital Encounter Mammography/[place] [address] Jeanine Lobato APRN [facility] [place] [address] History of breast cancer Discharge Disposition: Home [...] BIRADS CATEGORY 2: Benign findings. * ??The [employer] and The Society of [...] breast documented in this encounter Care Teams Home Care Consultant Relationship Specialty Start Date End Date Ana Her MD [address] [place] [address] PCP - General 07/29/13 documented as of this encounter
--- OUTSIDE RECORDS SUMMARY | 2024-06-01 10:03 | XMS_ITS | Encounter Summary ---
[place] [address] Care Team Providers Care Fire Boss Name Role Phone Ana Her MD Primary Care Provider [phone] Encounter Details Date Type Department Care Team (Late st Contact Info) Description 06/12/2021 Telephone [place] [address] Chelsie Lauren Social History Tobacco Use Types [...] on filedocumented in this encounter Care Teams Fire Boss Relationship Specialty Start Date End Date Ana Her MD [address] [place] [address] PCP - General 07/29/13 documented as of this encounter
--- OUTSIDE RECORDS SUMMARY | 2024-06-01 10:03 | XMS_ITS | Encounter Summary ---
Author Organization [facility] [place] [address] Care Team Providers Care System Programmer Name Role Phone Ana Her MD Primary Care Provider [phone] Reason for Visit * Reason Comments Radiation Consult * Consultation (Routine) - Closed Specialty Diagnoses / Procedures Referred By Christiano hackett Referred To Contact Radiation Oncology Diagnoses Breast cancer Malika Chen MD [facility] [place] [address] Stj Rad Onc Office [address] [place] [phone] Referral ID Status Reason Start Date Expiration Date Visits Re quested Visits Authorized [id number] Closed 03/17/2017 03/17/2018 1 1 Encounter Details Date Type Department Care Team (Late st Contact Info) Description 04/13/2017 10:00 AM EST Office Visit Radiation Oncology at [address] [address] Faye Velez MD [facility] RADI[place] [address] Malignant neoplasm of left female breast, unspecified [...] she is being evaluated for [place] [facility] [place]; has been wearing a ziopatch [...] 6.43) performed by Malika Chen MD at [facility] MAIN OR ??? PRO INTRAOP SENTINEL LYMPH ID W/DYE INJECTION Left 03/30/2017 INTRAOPERATIVE ID (MAPPING) SENTINEL LYMPH NODE,INCLUDES INJECTION (WRVU 2.5) performed by Malika Chen MD at [facility] MAIN OR ??? PRO MASTECTOMY, PARTIAL Left 03/30/2017 MASTECTOMY PARTIAL (WRVU 10.13) performed by Malika Chen MD at [facility] MAIN OR Your Medications These changes [...] documented in this encounter Care Teams System Programmer Relationship Specialty Start Date End Date Ana Her MD [address] [place] [address] PCP - General 07/29/13 documented as of this encounter
--- OUTSIDE RECORDS SUMMARY | 2024-06-01 10:03 | XMS_ITS | Encounter Summary ---
[place] [address] Care Team Providers Care Record Label Intern Name Role Phone Ana Her MD Primary Care Provider [phone] Reason for Visit * Reason Comments Follow-up Encounter Details Date Type Department Care Team (Late st Contact Info) Description 05/22/2020 11:40 AM EST Office Visit [place] [address] Jeanine Lobato APRN [facility] [place] [address] Encounter for follow-up surveillance of breast cancer; [...] ??Excision with image-guided localization ?Lymph Node Sampling: ??[place] lymph node(s) ?Specimen Laterality: ??Left Tumor ?Histologic [...] ??DCIS not present in specimen Lymph Nodes ?[place] Lymph Nodes: [place] lymph node biopsy performed ?Number of [place] Nodes Examined: ??3 ?Number of Lymph Node(s) [...] herex- speak almost daily. He lives in [place] [...] situation. Results: Imaging performed (bilateral mammogram) at [facility] today shows no [...] available at [facility] and [facility]. All questions were answered to the patient's satisfaction and they state understanding and agreement with today's treatment plan. They are encouraged to follow up sooner if they develop any new or concerning symptoms. Jeanine Lobato APRN Surgical Oncology P [phone] F [phone] [facility] documented in this encounter [...] who have questions please contact the health long term acute care registered nurse that requested your imaging first. ? Electronically signed by: Digna Noel MD, [facility] ([phone]), at 06/11/2021 9:20 AM Jeanine Lobato APRN [...] mammogram documented in this encounter Care Teams Record Label Intern Relationship Specialty Start Date End Date nAa Her MD [facility] [address] [place] [address] PCP - General 07/29/13 documented as of this encounter
--- OUTSIDE RECORDS SUMMARY | 2024-06-01 10:03 | XMS_ITS | Encounter Summary ---
[place] [address] Care Team Providers Care Hackler Doll Wigs Name Role Phone Ana Her MD Primary Care Provider [phone] Encounter Details Date Type Department Care Team (Late st Contact Info) Description 05/06/2017 Telephone Radiation Oncology at [address] [address] Maria A Antonio RN Social [...] on filedocumented in this encounter Care Teams Hackler Doll Wigs Relationship Specialty Start Date End Date Ana Her MD [address] [facility] [address] [place] [address] PCP - General 07/29/13 documented as of this encounter
--- OUTSIDE RECORDS SUMMARY | 2024-06-01 10:03 | XMS_ITS | Encounter Summary ---
[place] [address] Care Team Providers Care Programmable Logic Controller Assembler Name Role Phone Ana Her MD Primary Care Provider [phone] Encounter Details Date Type Department Care Team (Late st Contact Info) Description 11/01/2021 Telephone [place] [phone] Chelsie Lauren Social History Tobacco Use Types [...] on filedocumented in this encounter Care Teams Programmable Logic Controller Assembler Relationship Specialty Start Date End Date Ana Her MD [address] [place] [address] PCP - General 07/29/13 documented as of this encounter
--- OUTSIDE RECORDS SUMMARY | 2024-06-01 10:03 | XMS_ITS | Encounter Summary ---
[place] [address] Care Team Providers Care Mannequin Refinisher Name Role Phone Ana Her MD Primary Care Provider [phone] Encounter Details Date Type Department Care Team (Late st Contact Info) Description 05/19/2017 Telephone Hematology [place] [phone] Sandy Chapman Social History Tobacco Use Types [...] on filedocumented in this encounter Care Teams Mannequin Refinisher Relationship Specialty Start Date End Date Ana Her MD [address] [place] [address] PCP - General 07/29/13 documented as of this encounter
--- OUTSIDE RECORDS SUMMARY | 2024-06-01 10:03 | XMS_ITS | Encounter Summary ---
Author Organization [place] [address] Care Team Providers Care Rug Shampooer Name Role Phone Ana Her MD Primary Care Provider [phone] Encounter Details Date Type Department Care Team (Late st Contact Info) Description 04/23/2017 Notes [place] [address] Marjorie Ariza Social History Tobacco Use Types [...] Marjorie Ariza - 04/23/2017 2:43 PM EST Driver Guard Security Assurance Specialist met with pt after consultation with [...] filedocumented in this encounter Care Teams Rug Shampooer Relationship Specialty Start Date End Date Ana Her MD [address] [facility] [place] [address] PCP - General 07/29/13 documented as of this encounter
--- OUTSIDE RECORDS SUMMARY | 2024-06-01 10:03 | XMS_ITS | Encounter Summary ---
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 HEMATOLOGY/[place] [address] [facility] Rad Xray [address] [place] [address] [place] [phone] Referral ID Status Reason Start Date Expiration Date V isits Requested Visits Authorized [id number] Closed Specialty Service Requested 05/22/2020 11/19/2021 1 [...] (Generic) Ricky Lowry MD [facility] HEMATOLOGY/[place] [address] [facility] Rad Xray [address] [place] [address] Dr Seo[place]DINE briscoe [phone] Referral ID Status Reason Start Date Expiration Date V isits Requested Visits Authorized [id number] Closed Specialty Service Requested 05/22/2020 11/19/2021 1 1 Encounter Details Date Type Department Care Team (Latest Contact Info) Description 11/15/2020 2:25 PM EDT - 11/15/2020 11:59 PM EDT Hospital Encounter XRay at [address] [place] [address] Ricky Lowry MD Malignant neoplasm of lower-outer quadrant of left breast of female, estrogen receptor positive; Osteopenia of neck of femur, unspecified laterality; 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 Paper copies will be sent to providers without E- access. If you have received this report without the data sheet and do not have access to [employer], please contact Radiology Hydroelectric Powerplant Supervisor at [phone] Thursday thru Thursday 8am-4pm. Thank you for letting us participate in the care of this patient. ??If you are a health care provider and have any questions regarding this report, please contact the number below. ??For patients who have questions please contact the health care asst that requested your imaging first. ? Narrative [...] BMD measurements and plots are available in [employer] the imaging tab. Paper copies will be sent to providers without - access.If you have received this report without the data sheet and do not haveaccess to [facility], please contact Radiology Hydroelectric Powerplant Supervisor at [phone] Thursday thrrid 8am-4pm. Thank you for letting us participate in the care of this patient. If youare a health care provider and have any questions regarding this report,please contact the number below. For patients who have questions please contactthe health care asst that requested your imaging first. 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
--- OUTSIDE RECORDS SUMMARY | 2024-06-01 10:03 | XMS_ITS | Encounter Summary ---
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 Procedures DXA Central-Spine, Hip, And/Or Whole Body (Generic) Ricky Lowry MD [facility] DR HEMATOLOGY/[place] [address] [facility] Rad Xray [address] [place] [address] [place] [address] Referral ID Status Reason Start Date Expiration Date V isits Requested Visits Authorized [id number] Closed Specialty Service Requested 05/10/2018 05/10/2019 1 1 Reason for Visit * Reason Comments Follow-up Encounter Details Date Type Department Care Team (Late st Contact Info) Description 05/10/2018 2:45 PM EST Office Visit Hematology and Oncology at [facility] [place] [address] Ricky Lowry MD Malignant neoplasm [...] ??Excision with image-guided localization ?Lymph Node Sampling: ??[place] lymph node(s) ?Specimen Laterality: ??Left Tumor ?Histologic [...] ??DCIS not present in specimen Lymph Nodes ?[place] Lymph Nodes: [place] lymph node biopsy performed ?Number of [place] Nodes Examined: ??3 ?Number of Lymph Node(s) [...] Cardiology at [facility]. Most recent DEXA scan was last year [...] is planned for later this week (at [facility] No new problems with VELEZ, diplopia, cough, [...] chemotherapy. TACHO. Renewal of anastrazole sent. Given [facility] brochure to share with cousins. All [...] BMD measurements and plots are available in [employer] under the imaging tab. Paper copies will be sent to providers without [employer] access. If you have received this report without the data sheet and do not have access to [employer], please contact Radiology Dog Handler at [phone] Thursday thru Thursday 8am-4pm. Thank you for [...] BMD measurements and plots are available in [employer] the imaging tab. Paper copies will be sent to providers without [employer] access.If you have received this report without the data sheet and do not haveaccess to [employer], please contact Radiology Dog Handler at [phone] Thursday thruFriday 8am-4pm. Thank you for letting us participate in the care of this patient. Forquestions regarding this report, please contact the number below. Electronically signed by: Khushi Hughes 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
--- OUTSIDE RECORDS SUMMARY | 2024-06-01 10:03 | XMS_ITS | Encounter Summary ---
[place] [address] Care Team Providers Care Engraver Pantograph Name Role Phone Ana Her MD Primary Care Provider [phone] Encounter Details Date Type Department Care Team (Late st Contact Info) Description 05/10/2018 2:15 PM EST Office Visit [place] [address] Hiral Padgett, WENDY History of breast cancer [...] with image-guided localization ?Lymph Node Sampling: ?? [place] lymph node(s) ?Specimen Laterality: ?? Left Tumor [...] ?DCIS not present in specimen Lymph Nodes ?[place] Lymph Nodes: ?? [place] lymph node biopsy performed ?Number of [place] Nodes Examined: ?3 ?Number of Lymph Node(s) [...] mammogram today is cat 2. Leaving for [place] later today for a cardiac ablation/a fib at [facility]. Objective: Physical Exam Constitutional: She [...] breast documented in this encounter Care Teams Engraver Pantograph Relationship Specialty Start Date End Date Ana Her MD [address] [place] [address] PCP - General 07/29/13 documented as of this encounter
--- OUTSIDE RECORDS SUMMARY | 2024-06-01 10:03 | XMS_ITS | Encounter Summary ---
Author Organization [facility] [place] [address] Care Team Providers Care Roller Skater Name Role Phone Ana Her MD Primary Care Provider [phone] Encounter Details Date Type Department Care Team (Late st Contact Info) Description 03/30/2017 9:30 AM EST - 03/30/2017 11:28 AM EST [place] [phone] Brant Chen MD [facility] [place] [address] MASTECTOMY PARTIAL (WRVU 10.13) Social History Tobacco [...] shower 24 hours Activity as tolerated Call [phone] with any questions Do not soak incision [...] obtained which revealed IDC which is ER/UT+, her2-. She has no known breast masses, no adenopathy, no nipple discharge. ?? Alma Delia had a bone scan in [place] which was read as possible metastasis in the left tibia. Of note- she fractured this area recently. She has recovered well. ?? PMH HNT NIDDM not on meds Spinal stenosis Fractured left tibial plateau [place], 2017 GERD ?? FH: Maternal first cousin with breast cancer Brother with rectal cancer Sister with PE ? SH: lives alone. Has good support from sisters who live in [place]. Non smoker. Has a son who lives [...] 71 yo female with radiographic stage I ER/UT+, HER2- IDC of the left breast. No [...] Chen MD - 03/30/2017 12:27 PM EST [facility] Operative Note Patient Name: Digna Olson : [id number] MR#: [id number] Case Date: 03/30/2017 Surgeon: Surgeon(s) and Role: [...] [place] [address]. Remaining count within the axilla was 1982. [...] PM EST 03/30/2017 12:09 PM EST Narrative [facility] - 03/30/2017 12:09 PM EST Specimen requisition ordered. ??Separate Pathology report to follow Brant Chen MD PATHOLOGY/CYTOLOGY ORDERABLES [facility] [place] [address] * Specimen to Pathology (surgical or derm) (03/30/2017 12:08 PM EST) AP Specimen 03/30/2017 12:0 8 PM EST 03/30/2017 12:08 PM EST Narrative [facility] - 03/30/2017 12:08 PM EST Specimen requisition ordered. ??Separate Pathology report to follow Brant Chen MD PATHOLOGY/CYTOLOGY ORDERABLES Performing Organization Address [facility] Co de Phone Number [facility] [place] [address] * Specimen to Pathology (surgical or derm) (03/30/2017 12:00 PM EST) AP Specimen 03/30/2017 12:0 0 PM EST 03/30/2017 12:00 PM EST Narrative [facility] - 03/30/2017 12:00 PM EST Specimen requisition ordered. ??Separate Pathology report to follow Brant Chen MD PATHOLOGY/CYTOLOGY ORDERABLES Performing Organization Address [facility] [place] [address] * Specimen to Pathology (surgical or derm) (03/30/2017 11:51 AM EST) AP Specimen 03/30/2017 11:5 1 AM EST 03/30/2017 11:51 AM EST Narrative [facility] - 03/30/2017 11:51 AM EST Specimen requisition ordered. ??Separate Pathology report to follow Brant Chen MD PATHOLOGY/CYTOLOGY ORDERABLES Performing Organization Address [facility] Co de Phone Number [facility] [place] [phone] * Surgical Pathology Report (03/30/2017 11:50 AM EST) Final Diagnosis [id number] ? Location: [facility]; [facility]; A The signing pathologist has (i) examined the relevant preparation(s) for the specimen(s) and (ii) rendered or confirmed the diagnosis(es). . ?Surgical Pathology DIAGNOSIS A,B - See Synoptic C - Left breast, Deep/lateral margin re-excision - ?Benign fatty breast tissue. D - Left breast, Superficial margin re-excision - ?Benign fatty breast tissue. See Note Note - Coal ink (indicating additional cranial margin) is also present on this superficial margin re-excision. ---- Specimen Parts: ?? A - Left axilliary sentinel node B - Left breast partial mastectomy Specimen ? Procedure: ??Excision with image-guided localization ? Lymph Node Sampling: ?? [place] lymph node(s) ? Specimen Laterality: ?? Left [...] not present in specimen Lymph Nodes ? [place] Lymph Nodes: ?? [place] lymph node biopsy performed ? Number of [place] Nodes Examined: ?3 ? Number of Lymph [...] Chávez DO Verified: ??04/01/2017 ?Pathologist Performed at: ??-[facility] Dept. of Pathology, [place], [place] CLINICAL INFORMATION Specimen Submitted: A - [...] and there are ??no close margins. per [facility] Radiology . Specimen Description: According [...] 0.8 x 0.4 x 0.4 cm. Color: [place] and yellow. Consistency: Soft. Location: Slices III and IV. Nearest Margin: 0.6 cm to the cranial margin. Other Margins: 0.8 cm to the deep margin, 1.0 cm to the superficial margin, ? > 2 cm from all other margins. OTHER Parenchyma: Predominately fatty with scant fibrous tissue. Wire/Clip: Biopsy marker clip identified within slice IV. SECTIONS/PROCESSI NG: (1) office machines sales representative slice I, lateral margin; (2) slice III, lesion to cranial margin; (3-5) remainder of slice III; (6) slice IV, lesion to cranial margin (clip); (7-8) remainder of slice IV; (9) office machines sales representative slice V; (10) office machines sales representative slice X, medial margin. (R10) [...] sectioned. (T3) ??sns 04/01/2017 9:38 AM EST [facility] BREAST STRUCTURE / Unknown 03/30/2017 11:50 AM EST 03/30/2017 11:50 AM EST BREAST STRUCTURE / Unknown 03/30/2017 11:50 AM EST 03/30/2017 11:50 AM EST BREAST STRUCTURE / Unknown 03/30/2017 11:50 AM EST 03/30/2017 11:50 AM EST BREAST STRUCTURE / Unknown 03/30/2017 11:50 AM EST 03/30/2017 11:50 AM EST Brant Chen MD PATHOLOGY/CYTOLOGY ORDERABLES [facility] [place] [address] * Mammo Direct Digital Left (03/30/2017 9:15 [...] Routine documented in this encounter Care Teams Roller Skater Relationship Specialty Start Date End Date Ana Her MD [address] [place] [address] PCP - General 07/29/13 documented as of this encounter
--- OUTSIDE RECORDS SUMMARY | 2024-06-01 10:03 | XMS_ITS | Encounter Summary ---
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 Results: Last DXA [...] Medical Oncology - Breast & GI [facility] Pager [phone] No future appointments. documented in this encounter Plan of Treatment Not on file documented as of this encounter Visit Diagnoses Diagnosis Malignant neoplasm of lower-outer quadrant of left breast of female, estrogen receptor positive [facility] current use of aromatase inhibitor Use of aromatase inhibitors documented in this encounter Care Teams Resort Desk Clerk Relationship Specialty Start Date End Date Ana Her MD [address] [place] [address] PCP - General 07/29/13 documented as of this encounter
--- OUTSIDE RECORDS SUMMARY | 2024-06-01 10:03 | XMS_ITS | Encounter Summary ---
Author Organization Counts Include [address] [facility] [address] Care Team Providers Care Operator/Assistant Foreman Name Role Phone Ana Her MD Primary Care Provider [phone] Encounter Details Date Type Department Care Team (Latest Contact Info) Description 06/11/2021 8:41 AM EST - 06/11/2021 11:59 PM [facility] Hospital Encounter Mammography/[place] [phone] Jeanine Lobato APRN [facility] [address] Malignant neoplasm of lower-outer quadrant of left [...] Take 40 mg by mouth daily. omega 5-net-vsn-fish-turm salty 417 mg-120 mg- 276 mg-600 mg [...] have questions please contact the health rn progressive care that requested your imaging first. ? Jeanine Lobato TEST AND RESEARCH REACTOR OPERATOR IMG MAMMO ORD ERABLES documented in this encounter Visit Diagnoses Diagnosis Malignant neoplasm of lower-outer quadrant of left breast of female, estrogen receptor positive Breast cancer screening by mammogram documented in this encounter Care Teams Operator/Assistant Foreman Relationship Specialty Start Date End Date Ana Her MD [address] [place] [address] PCP - General 07/29/13 documented as of this encounter
--- OUTSIDE RECORDS SUMMARY | 2024-06-01 10:03 | XMS_ITS | Encounter Summary ---
[place] [address] Care Team Providers Care Floral Merchandiser Name Role Phone Ana Her MD Primary Care Provider [phone] Reason for Visit * Reason Comments Follow-up Encounter Details Date Type Department Care Team (Late st Contact Info) Description 11/15/2020 4:00 PM EDT Office Visit Hematology [place] [phone] Laura Joaquin PA Malignant neoplasm of lower-outer [...] ??Excision with image-guided localization ?Lymph Node Sampling: ??[place] lymph node(s) ?Specimen Laterality: ??Left Tumor ?Histologic [...] ??DCIS not present in specimen Lymph Nodes ?[place] Lymph Nodes: [place] lymph node biopsy performed ?Number of [place] Nodes Examined: ??3 ?Number of Lymph Node(s) [...] Medical Oncology - Breast & GI Cancers [facility] Pager - [phone] documented in this encounter Plan of Treatment Not on file documented as of this encounter Visit Diagnoses Diagnosis Malignant neoplasm of lower-outer quadrant of left breast of female, estrogen receptor positive documented in this encounter Care Teams Floral Merchandiser Relationship Specialty Start Date End Date Ana Her MD [address] [place] [address] PCP - General 07/29/13 documented as of this encounter
--- OUTSIDE RECORDS SUMMARY | 2024-06-01 10:03 | XMS_ITS | Encounter Summary ---
Author Organization [facility] [place] [address] Care Team Providers Care Belly Roller Name Role Phone Ana Her MD Primary Care Provider [phone] Encounter Details Date Type Department Care Team (Late st Contact Info) Description 10/23/2017 9:43 AM EDT - 10/23/2017 11:59 PM EDT Hospital En[place] [phone] Hiral Padgett, WENDY History of breast cancer [...] breast documented in this encounter Care Teams Belly Roller Relationship Specialty Start Date End Date Ana Her MD [address] [place] [address] PCP - General 07/29/13 documented as of this encounter
--- OUTSIDE RECORDS SUMMARY | 2024-06-01 10:03 | XMS_ITS | Encounter Summary ---
Author Organization [place] [address] Care Team Providers Care Supervisor Decorating Name Role Phone Ana Her MD Primary Care Provider [phone] Reason for Visit * Reason Comments Follow-up Encounter Details Date Type Department Care Team (Late st Contact Info) Description 05/31/2019 11:45 AM EST Office Visit [place] [phone] Ricky Lowry MD Malignant neoplasm of lower-outer [...] ??Excision with image-guided localization ?Lymph Node Sampling: ??[place] lymph node(s) ?Specimen Laterality: ??Left Tumor ?Histologic [...] ??DCIS not present in specimen Lymph Nodes ?[place] Lymph Nodes: [place] lymph node biopsy performed ?Number of [place] Nodes Examined: ??3 ?Number of Lymph Node(s) [...] Spinal stenosis > A Fib. Cardiology at [facility]. S/P successful cardioversion May 2018. DEXA scan [...] documented in this encounter Care Teams Supervisor Decorating Relationship Specialty Start Date End Date Ana Her MD [facility] [address] [facility] 1 [place] [address] PCP - General 07/29/13 documented as of this encounter
--- OUTSIDE RECORDS SUMMARY | 2024-06-01 10:03 | XMS_ITS | Encounter Summary ---
Author Organization [facility] [place] [address] Care Team Providers Care Operational Review Sergeant Name Role Phone Ana Her MD Primary Care Provider [phone] Encounter Details Date Type Department Care Team (Latest Contact Info) Description 03/30/2017 8:30 AM [facility] Hospital [place] [address] Malika Chen MD [facility] [place] [address] Malignant neoplasm of upper-outer quadrant of left [...] mg documented in this encounter Care Teams Operational Review Sergeant Relationship Specialty Start Date End Date Ana Her MD [address] [place] [address] PCP - General 07/29/13 documented as of this encounter
--- OUTSIDE RECORDS SUMMARY | 2024-06-01 10:03 | XMS_ITS | Encounter Summary ---
[place] [address] Care Team Providers Care Director Of Securities And Real Estate Name Role Phone Ana Her MD Primary Care Provider [phone] Encounter Details Date Type Department Care Team (Late st Contact Info) Description 04/09/2017 Abstract Radiation Oncology at [address] [phone] Maria A Antonio, RN Social History Tobacco [...] in this encounter Care Teams Director Of Securities And Real Estate Relationship Specialty Start Date End Date Ana Her MD [address] [place] [address] PCP - General 07/29/13 documented as of this encounter
--- OUTSIDE RECORDS SUMMARY | 2024-06-01 10:03 | XMS_ITS | Encounter Summary ---
Author Organization [facility] [place] [address] Care Team Providers Care Rn Physician Office Name Role Phone Ana Her MD Primary Care Provider [phone] Encounter Details Date Type Department Care Team (Late st Contact Info) Description 05/31/2019 1:00 PM EST Office [place] [address] Jeanine Lobato SOFT TOP INSTALLER [facility] [place] [address] Encounter for follow-up surveillance of breast cancer; [...] obtained which revealed IDC which is ER/LA+, Her2-. She hasno known breast masses, no adenopathy, no nipple discharge. 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 He lives in [place]. She enjoys reading and cooking. She does [...] situation. Results: Imaging performed (bilateral mammogram) at [facility] [place] today shows no evidence of malignancy, BIRADS [...] symptoms. Jeanine Lobato APRN Surgical Oncology P [phone] F [phone] [facility] documented in this encounter Plan of [...] mammogram documented in this encounter Care Teams Rn Physician Office Relationship Specialty Start Date End Date Ana Her MD [facility] [address] [facility] 1 [place] [address] PCP - General 07/29/13 documented as of this encounter
--- OUTSIDE RECORDS SUMMARY | 2024-06-01 10:03 | XMS_ITS | Encounter Summary ---
Author Organization [facility] Address [facility] [place] [address] Care Team Providers Care Spa Manager Name Role Phone Ana Her MD Primary Care Provider [phone] Encounter Details Date Type Department Care Team (Late st Contact Info) Description 09/03/2021 Ancillary Procedure Radiology Library at [facility] [place] [address] Laura Will MD [facility] [place] [address] Social History Tobacco Use Types Packs/Day Years [...] Chest (09/03/2021 12:00 AM EDT) Narrative [facility] - 11/28/2021 1:22 PM EDT This exam is auto-finalizing. It's purpose is for storage only. Laura Will MD IMG FILM LIBRARY OR DERABLES Performing Organization Address City/State/[facility] Co de Phone Number [place], [place] documented in this encounter Visit Diagnoses Not on filedocumented in this encounter Care Teams Spa Manager Relationship Specialty Start Date End Date Ana Her MD [address] [facility] 1 [place] [address] PCP - General 07/29/13 documented as of this encounter
--- OUTSIDE RECORDS SUMMARY | 2024-06-01 10:03 | XMS_ITS | Encounter Summary ---
Author Organization [facility] [place] [address] Care Team Providers Care Identification Printing Machine Setter Name Role Phone Ana Her MD Primary Care Provider [phone] Encounter Details Date Type Department Care Team (Latest Contact Info) Description 05/22/2020 10:46 AM EST - 05/22/2020 11:59 PM [facility] Hospital Encounter Mammography/[place] [phone] Jeanine Lobato APRN [facility] [place] [address] Malignant neoplasm of lower-outer quadrant of left [...] mammogram documented in this encounter Care Teams Identification Printing Machine Setter Relationship Specialty Start Date End Date Ana Her MD [facility] [address] [facility] 1 [place] [address] PCP - General 07/29/13 documented as of this encounter
--- OUTSIDE RECORDS SUMMARY | 2024-06-01 10:03 | XMS_ITS | Encounter Summary ---
Author Organization [facility] [place] [address] Care Team Providers Care Teacher Name Role Phone Ana Her MD Primary Care Provider [phone] Encounter Details Date Type Department Care Team (Latest Contact Info) Description 03/30/2017 8:30 AM [facility] Hospital En[place] [address] Malika Chen MD [facility] [place] [address] Malignant neoplasm of upper-outer quadrant of left [...] positive documented in this encounter Care Teams Teacher Relationship Specialty Start Date End Date Ana Her MD [address] [place] [address] PCP - General 07/29/13 documented as of this encounter
--- OUTSIDE RECORDS SUMMARY | 2024-06-01 10:03 | XMS_ITS | Encounter Summary ---
Author Organization [facility] [place] [address] Care Team Providers Care Road Oiler Name Role Phone Ana Her MD Primary Care Provider [phone] 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 * Diagnostic Test (Routine) - Closed Specialty Diagnoses / Procedures Referred By Contac t Referred To Contact Radiology Diagnoses Malignant neoplasm of lower-outer quadrant of left breast of female, estrogen receptor positive Osteopenia of neck of femur, unspecified laterality manager terminal current use of aromatase inhibitor Procedures DXA Central-Spine, Hip, And/Or Whole Body (Generic) Ricky Lowry MD [facility] HEMATOLOGY/[place] [address] [facility] Rad Xray [address] [place] [address] [place] [address] Referral ID Status Reason Start Date Expiration Date V isits Requested Visits Authorized [id number] Closed Specialty Service Requested 05/10/2018 05/10/2019 1 1 Reason for Visit * Diagnostic Test (Routine) - Closed Specialty Diagnoses / Procedures Referred By Contac t Referred To Contact Radiology Diagnoses Malignant neoplasm of lower-outer quadrant of left breast of female, estrogen receptor positive Osteopenia of neck of femur, unspecified laterality manager terminal current use of aromatase inhibitor Procedures DXA Central-Spine, Hip, And/Or Whole Body (Generic) Ricky Lowry MD [facility] HEMATOLOGY/[place] [address] [facility] Rad Xray [address] [place] [address] Dr [place], [place] [address] Referral ID Status Reason Start Date Expiration Date V isits Requested Visits Authorized [id number] Closed Specialty Service Requested 05/10/2018 05/10/2019 1 1 Encounter Details Date Type Department Care Team (Latest Contact Info) Description 11/09/2018 1:03 PM EDT - 11/09/2018 11:59 PM EDT Hospital Encounter XRay at [address] [place] [address] Ricky Lowry MD Malignant neoplasm of lower-outer quadrant of left breast of female, estrogen receptor positive; Osteopenia of neck of femur, unspecified laterality; manager terminal current use of aromatase inhibitor Discharge [...] laterality [facility] current use of aromatase inhibitor documented in [...] BMD measurements and plots are available in ED and K interprises under the imaging tab. Paper copies will be sent to providers without E-DH access. If you have received this report without the data sheet and do not have access to ED and K interprises, please contact Radiology Remote Sensing Technician at [phone] Thursday thru Thursday 8am-4pm. Thank you for letting us participate in the care of this patient. For questions regarding this report, please contact the number below. ? Electronically signed by: JULIET Jackson [facility] ([phone]), at 11/10/2018 10:55 AM Narrative 11/10/2018 10:55 [...] BMD measurements and plots are available in Financubaunder the imaging tab. Paper copies will be sent to providers without Motorpaneer access.If you have received this report without the data sheet and do not haveaccess to Motorpaneer, please contact Radiology Remote Sensing Technician at [phone] Thursday thruFriday 8am-4pm. Thank you for letting us participate in the care of this patient. Forquestions regarding this report, please contact the number below. Electronically signed by: Khushi Hughes [facility] [place] ([phone]),at 11/10/2018 10:55 AM Ricky Lowry MD IMG DEXA ORDERABLES documented in this encounter Visit Diagnoses Diagnosis Malignant neoplasm of lower-outer quadrant of left breast of female, estrogen receptor positive Osteopenia of neck of femur, unspecified laterality [facility]DC current use of aromatase inhibitor Use of aromatase inhibitors documented in this encounter Care Teams Road Oiler Relationship Specialty Start Date End Date Ana Her MD [facility] [address] [facility] 1 [place] [address] PCP - General 07/29/13 documented as of this encounter
--- OUTSIDE RECORDS SUMMARY | 2024-06-01 10:03 | XMS_ITS | Encounter Summary ---
Author Organization [facility] [place] [address] Care Team Providers Care Scientific Laboratory Supervisor Name Role Phone Ana Her MD Primary Care Provider [phone] Encounter Details Date Type Department Care Team (Late st Contact Info) Description 05/10/2018 1:10 PM EST - 05/10/2018 11:59 PM EST Hospital Encounter Mammography/[place] [address] Hiral Padgett, WENDY Encounter for screening mammogram [...] cancer documented in this encounter Care Teams Scientific Laboratory Supervisor Relationship Specialty Start Date End Date Ana Her MD [address] [place] [address] PCP - General 07/29/13 documented as of this encounter
--- OUTSIDE RECORDS SUMMARY | 2024-06-01 10:03 | XMS_ITS | Encounter Summary ---
Author Organization [facility] [place] [address] Care Team Providers Care Retail Supervisor Name Role Phone Ana Her MD Primary Care Provider [phone] Encounter Details Date Type Department Care Team (Late st Contact Info) Description 03/30/2017 Notes [place] [address] January Ward MSW Social History Tobacco Use [...] was recently diagnosed with invasive mucinous carcinoma. [facility] attempted to meet with pt in Same Day surgery this morning but she was still in radiology. I spoke with her ex-, Keith, who states she will be staying with him tondenise. Their granddaughters are traveling from [place] and plan to accompany pt to see her rehab spec at [facility] tomorrow. Pt has been followed by this physician for her cardiac problems. [facility] will continue to provide support and resources to pt. documented in this encounter Plan of Treatment Not on file documented as of this encounter Visit Diagnoses Not on filedocumented in this encounter Care Teams Retail Supervisor Relationship Specialty Start Date End Date Ana Her MD [address] [facility] 1 [place] [address] PCP - General 07/29/13 documented as of this encounter
--- OUTSIDE RECORDS SUMMARY | 2024-06-01 10:03 | XMS_ITS | Encounter Summary ---
[place] [address] Care Team Providers Care Tool Grinder Operator Name Role Phone Ana Her MD Primary Care Provider [phone] Encounter Details Date Type Department Care Team (Late st Contact Info) Description 04/05/2018 Telephone [place] [phone] Adrianna Jones Social History Tobacco Use Types [...] Padgett. Patient advises she is admitted at [facility] for afib and is pending procedure etc. Patient will call to reschedule once she is discharged home. documented in this encounter Plan of Treatment Not on file documented as of this encounter Visit Diagnoses Not on filedocumented in this encounter Care Teams Tool Grinder Operator Relationship Specialty Start Date End Date Ana Her MD [address] [place] [address] PCP - General 07/29/13 documented as of this encounter
--- OUTSIDE RECORDS SUMMARY | 2024-06-01 10:03 | XMS_ITS | Encounter Summary ---
Author Organization [facility] [place] [address] Care Team Providers Care Rn Clinical Quality Name Role Phone Ana Her MD Primary Care Provider [phone] Encounter Details Date Type Department Care Team (Latest Contact Info) Description 03/30/2017 8:30 AM [facility] Hospital Encounter [place] [address] Malika Chen MD [facility] [place] [address] Malignant neoplasm of upper-outer quadrant of left [...] documented in this encounter Results * Mammo [place] Node Injection (03/30/2017 9:01 AM EST) Anatomical [...] mCi documented in this encounter Care Teams Rn Clinical Quality Relationship Specialty Start Date End Date Ana Her MD [address] [place] [address] PCP - General 07/29/13 documented as of this encounter
--- OUTSIDE RECORDS SUMMARY | 2024-06-01 10:03 | XMS_ITS | Encounter Summary ---
[place] [address] Care Team Providers Care Technology Project Manager Name Role Phone Ana Her MD Primary Care Provider Reason for Visit * Reason Comments Schedule Office Case Encounter Details Date Type Department Care Team (Late st Contact Info) Description 04/23/2017 2:00 PM EST Office Visit [place] [address] Ricky Lowry MD Malignant neoplasm of lower-outer [...] cancer cells with immunostaining) Stain intensity: Strong TN immunoreactivity: Positive (>90% cancer cells with immunostaining) [...] ??Excision with image-guided localization ?Lymph Node Sampling: ??[place] lymph node(s) ?Specimen Laterality: ??Left Tumor ?Histologic [...] ??DCIS not present in specimen Lymph Nodes ?[place] Lymph Nodes: [place] lymph node biopsy performed ?Number of [place] Nodes Examined: ??3 ?Number of Lymph Node(s) [...] documented in this encounter Care Teams Technology Project Manager Relationship Specialty Start Date End Date Ana Her MD [address] [place] [address] PCP - General 07/29/13 documented as of this encounter
--- OUTSIDE RECORDS SUMMARY | 2024-06-01 10:03 | XMS_ITS | Encounter Summary ---
Author Organization [facility] [place] [address] Care Team Providers Care Manager Of Disaster Recovery Name Role Phone Ana Her MD Primary Care Provider [phone] Reason for Visit * Reason Comments Follow Up Surgery Encounter Details Date Type Department Care Team (Late st Contact Info) Description 07/13/2017 1:30 PM EDT Office Visit [place] [phone] Hiral Padgett, WENDY History of breast cancer [...] with image-guided localization ?Lymph Node Sampling: ?? [place] lymph node(s) ?Specimen Laterality: ?? Left Tumor [...] ?DCIS not present in specimen Lymph Nodes ?[place] Lymph Nodes: ?? [place] lymph node biopsy performed ?Number of [place] Nodes Examined: ?3 ?Number of Lymph Node(s) [...] in this encounter Care Teams Manager Of Disaster Recovery Relationship Specialty Start Date End Date Ana Her MD [facility] [address] [place] [address] PCP - General 07/29/13 documented as of this encounter
--- OUTSIDE RECORDS SUMMARY | 2024-06-01 10:03 | XMS_ITS | Encounter Summary ---
Author Organization [facility] [place] [address] Care Team Providers Care Chemistry Account Manager Name Role Phone Ana Her [...] and/or Whole Body (Generic) Ricky Lowry MD [facility] DR HEMATOLOGY/[place] [address] [facility] Rad Xray [address] [place] [address] [place] [address] Referral ID Status Reason Start Date Expiration Date V isits Requested Visits Authorized [id number] Closed Specialty Service Requested 05/22/2020 11/19/2021 1 1 Encounter Details Date Type Department Care Team (Late st Contact Info) Description 05/22/2020 1:15 PM EST Office Visit Hematology and Oncology at [facility] [place] [address] Ricky Lowry MD Malignant neoplasm of lower-outer quadrant of left breast of female, estrogen receptor positive; Osteopenia of neck of femur, unspecified laterality; group home current use of aromatase inhibitor Social [...] ??Excision with image-guided localization ?Lymph Node Sampling: ??[place] lymph node(s) ?Specimen Laterality: ??Left Tumor ?Histologic [...] ??DCIS not present in specimen Lymph Nodes ?[place] Lymph Nodes: [place] lymph node biopsy performed ?Number of [place] Nodes Examined: ??3 ?Number of Lymph Node(s) [...] BMD measurements and plots are available in [employer] under the imaging tab. Paper copies will be sent to providers without Posmetrics access. If you have received this report without the data sheet and do not have access to Posmetrics, please contact Radiology [facility] at [phone] Thursday thru Thursday 8am-4pm. Thank you for letting us participate in the care of this patient. ??If you are a health care provider and have any questions regarding this report, please contact the number below. ??For patients who have questions please contact the health caregiver services home that requested your imaging first. ? Electronically signed by: Nat Epperson MD, [facility] ([phone]), at 11/19/2020 1:09 PM Narrative 11/19/2020 1:09 [...] BMD measurements and plots are available in EArrayent Healthunder the imaging tab. Paper copies will be sent to providers without Posmetrics access.If you have received this report without the data sheet and do not haveaccess to EWANdisco, please contact Radiology Infrastructure Director at [phone] Thursday thruFriday 8am-4pm. Thank you for letting us participate in the care of this patient. If youare a health care provider and have any questions regarding this report,please contact the number below. For patients who have questions please contactthe health caregiver services home that requested your imaging first. Ricky Lowry [...] inhibitors documented in this encounter Care Teams Chemistry Account Manager Relationship Specialty Start Date End Date Ana Her MD [address] [place] [address] PCP - General 07/29/13 documented as of this encounter
--- OUTSIDE RECORDS SUMMARY | 2024-06-01 10:04 | XMS_ITS | Encounter Summary ---
Author Organization [facility] Address [address] [place] [address] Care Team Providers Care Gore Inserter Name Role Phone Unknown, Provider MD Primary Care Provider Unava ilable Encounter Details Date Type Department Care Team (Late st Contact Info) Description 08/12/2021 Lab Requisition [facility] Pathology & Laboratory Medicine - [facility] [address] [place] [address] Outr Resulting Lab, Provider Social History Tobacco [...] Priority Date/Time Associated Diagnosis Comments ZZCOVID-19 TEST [facility] PCR Today 08/12/2021 15:00 EDT COVID-19 TESTING Routine 08/12/2021 15:0 0 EDT documented in this encounter Results * COVID-19 TEST [facility] (08/12/2021 15:00 EDT) Swab 08/12/2021 15:0 0 EDT 08/13/2021 16:56 EDT us Provider Outr Resulting Lab MICROBIOLOGY - GENER AL ORDERABLES Final Result [facility] [address] [place] [address] * COVID-19 TESTING (08/12/2021 15:00 EDT) COVID-19 rt-PCR Result Negative Negative 08/14/2021 11:53 EDT [facility] Comment: This test has not [...] was performed using the palomo SARS-CoV-2 assay ([employer] on the Palomo 6800 System Performing Lab Palomo 6800 [facility] 08/14/2021 11:53 EDT [facility] Swab 08/12/2021 15:0 0 EDT 08/13/2021 16:56 EDT us Provider Outr Resulting Lab MICROBIOLOGY - GENER AL ORDERABLES Final Result [facility] [address] [place] [address] documented in this encounter Visit Diagnoses Not on filedocumented in this encounter Care Teams Gore Inserter Relationship Specialty Start Date End Date Unknown, Provider, PCP - General 01/13/14 documented as of this encounter
--- OUTSIDE RECORDS SUMMARY | 2024-06-01 10:04 | XMS_ITS | Encounter Summary ---
Author Organization [facility] Address [address] [facility] [place] [address] Care Team Providers Care Bus Van Driver Name Role Phone Ana Her MD Primary Care Provider [phone] Encounter Details Date Type Department Care Team (Late st Contact Info) Description 09/13/2015 Interpretation Only Radiology [address] [place] [address] Unknown None Social History Tobacco Use Types [...] 6:56 AM EDT APD Historical Result Principal Service Station Helper: ??MAE ??ESCHBACH IMAGE-INTENSIFIER FILMS: INDICATION: ??Right [...] for this exam. Mae Shelley DO TOBIN/mn [id number] Procedure Note Unknown - 11/01/2018 APD Historical Result Principal Service Station Helper: MAE SHELLEY IMAGE-INTENSIFIER FILMS: INDICATION: Right L4 foraminotomy. FINDINGS: A total of 5.8 seconds of fluoro time was utilized by Geraldine Claros MD. Estimated dose is 5.96 mGy. Two image-intensifier films record the event. They show thelumbosacral junction in the lateral projection with a surgical instrument indicating the level of L4.No Radiologist was present for this exam. Mae Shelley DO TOBIN/mn [id number] Unknown IMG FLUORO ORDERABLE S documented in this encounter Visit Diagnoses Not on filedocumented in this encounter Care Teams Bus Van Driver Relationship Specialty Start Date End Date Ana Her MD [address] [place] [address] PCP - General 07/29/13 documented as of this encounter
--- OUTSIDE RECORDS SUMMARY | 2024-06-01 10:04 | XMS_ITS | Clinical Summary ---
Author Organization [facility] Address [address] [place] [address] Care Team Providers Care Traveling Passenger Agent Name Role Phone Unknown, Provider MD Primary [...] COVID-19 Vaccine (2023- season) 2024 Care Teams Traveling Passenger Agent Relationship Specialty Start Date End Date Unknown, Provider, PCP - General 01/13/14
--- OUTSIDE RECORDS SUMMARY | 2024-06-01 10:04 | XMS_ITS | Encounter Summary ---
[place] [address] Care Team Providers Care Assessment Expert Name Role Phone Ana Her MD Primary Care Provider [phone] 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 * Surgical (Routine) - Closed Specialty Diagnoses / Procedures Referred By Christiano hackett Referred To Contact Orthopaedics Diagnoses Lumbar spinal stenosis Michelle Hurtado APRN [facility] [place] [address] [facility] [address] [place] [address] Referral ID Status Reason Start Date Expiration Date V isits Requested Visits Authorized [id number] Closed Consult, Test & Treat 09/08/2014 09/08/2015 3 3 Encounter Details Date Type Department Care Team (Late st Contact Info) Description 09/08/2014 Orders [place] [address] Michelle Hurtado INVASIVE CARDIOLOGIST [facility] [place] [address] Lumbar spinal stenosis Social History Tobacco Use [...] claudication documented in this encounter Care Teams Assessment Expert Relationship Specialty Start Date End Date Ana Her MD [facility] [address] [facility] [address] [place] [address] PCP - General 07/29/13 documented as of this encounter
--- OUTSIDE RECORDS SUMMARY | 2024-06-01 10:04 | XMS_ITS | Encounter Summary ---
Author Organization [facility] Address [address] [place] [address] Care Team Providers Care Hogshead Stripper Name Role Phone Unknown, Provider Primary Care Provider Unava ilable Encounter Details Date Type Department Care Team (Late st Contact Info) Description 11/19/2023 Lab Requisition [facility] Pathology & Laboratory Medicine - [facility] [address] [place], [place] [address] Outr Resulting Lab, Provider Social History Tobacco [...] 201 - 352 mg/dL 11/20/2023 9:45 EDT [facility] Blood VENOUS BLOOD / Unknown 11/19/2023 6:05 EDT 11/19/2023 17:32 EDT us Provider Outr Resulting Lab CHEMISTRY & BLOOD GA S ORDERABLES Final Result [facility] [address] [place], [place] [address] documented in this encounter Visit Diagnoses Not on filedocumented in this encounter Care Teams Hogshead Stripper Relationship Specialty Start Date End Date Unknown, Provider, PCP - General 01/13/14 documented as of this encounter
--- OUTSIDE RECORDS SUMMARY | 2024-06-01 10:04 | XMS_ITS | Encounter Summary ---
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 She has no known breast masses, [...] good support from sisters who live in [place]. Non smoker. Has a son who lives [...] 71 yo female with radiographic stage I ER/KS+, HER2- IDC of the left breast. No [...] Chen MD - 03/30/2017 12:27 PM EST [facility] Operative Note Patient Name: Digna Olson : [id number] MR#: [id number] Case Date: 03/30/2017 Surgeon: Surgeon(s) and Role: [...] [place] [address]. Remaining count within the axilla was 1982. [...] Chen MD PATHOLOGY/CYTOLOGY ORDERABLES [facility] [place] [address] * Specimen to Pathology (surgical or derm) (03/30/2017 12:08 PM EST) AP Specimen 03/30/2017 12:0 8 PM EST 03/30/2017 12:08 PM EST Narrative [facility] - 03/30/2017 12:08 PM EST Specimen requisition ordered. ??Separate Pathology report to follow Brant Chen MD PATHOLOGY/CYTOLOGY ORDERABLES Performing Organization Address [facility] [place] [address] * Specimen to Pathology (surgical or derm) (03/30/2017 12:00 PM EST) AP Specimen 03/30/2017 12:0 0 PM EST 03/30/2017 12:00 PM EST Narrative [facility] - 03/30/2017 12:00 PM EST Specimen requisition ordered. ??Separate Pathology report to follow Brant Chen MD PATHOLOGY/CYTOLOGY ORDERABLES Performing Organization Address [facility] Co de Phone Number [place] [phone] * Specimen to Pathology (surgical or derm) (03/30/2017 11:51 AM EST) AP Specimen 03/30/2017 11:5 1 AM EST 03/30/2017 11:51 AM EST Narrative [facility] - 03/30/2017 11:51 AM EST Specimen requisition ordered. ??Separate Pathology report to follow Brant Chen MD PATHOLOGY/CYTOLOGY ORDERABLES Performing Organization Address [facility] [place] [address] * Surgical Pathology Report (03/30/2017 11:50 AM EST) Final Diagnosis [id number] ? Location: [facility]; [facility]; A The signing pathologist has (i) examined the relevant preparation(s) for the specimen(s) and (ii) rendered or confirmed the diagnosis(es). . ?Surgical Pathology DIAGNOSIS A,B - See Synoptic C - Left breast, Deep/lateral margin re-excision - ?Benign fatty breast tissue. D - Left breast, Superficial margin re-excision - ?Benign fatty breast tissue. See Note Note - [place] ink (indicating additional cranial margin) is also present on this superficial margin re-excision. ---- Specimen Parts: ?? A - Left axilliary sentinel node B - Left breast partial mastectomy Specimen ? Procedure: ??Excision with image-guided localization ? Lymph Node Sampling: ?? Ashby lymph node(s) ? Specimen Laterality: ?? Left [...] not present in specimen Lymph Nodes ? Ashby Lymph Nodes: ?? Ashby lymph node biopsy performed ? Number of Ashby Nodes Examined: ?3 ? Number of Lymph [...] Chávez DO Verified: ??04/01/2017 ?Pathologist Performed at: ??-[facility] Dept. of Pathology, [place], [place] CLINICAL INFORMATION Specimen Submitted: A - [...] 0.8 x 0.4 x 0.4 cm. Color: [place] and yellow. Consistency: Soft. Location: Slices III and IV. Nearest Margin: 0.6 cm to the cranial margin. Other Margins: 0.8 cm to the deep margin, 1.0 cm to the superficial margin, ? > 2 cm from all other margins. OTHER Parenchyma: Predominately fatty with scant fibrous tissue. Wire/Clip: Biopsy marker clip identified within slice IV. SECTIONS/PROCESSI NG: (1) outside energy sales representatives slice I, lateral margin; (2) slice III, lesion to cranial margin; (3-5) remainder of slice III; (6) slice IV, lesion to cranial margin (clip); (7-8) remainder of slice IV; (9) outside energy sales representatives slice V; (10) outside energy sales representatives slice X, medial margin. (R10) [...] Chen MD PATHOLOGY/CYTOLOGY ORDERABLES [facility] [place] [address] * Mammo Direct Digital Left (03/30/2017 9:15 [...] interpretation and agree with the findings, ROBERT THMOPSON at 03/30/2017 10:41 AM Narrative 03/30/2017 10:41 [...] RN)[id number] (Anesthesia Volume Adjustment - Provider: Laura oKo CRNA) PRN Medication Order 03/28/2017 03/29/2017 03/30/2017 [...] Routine documented in this encounter Care Teams Engineering Teacher Relationship Specialty Start Date End Date Ana Her MD [address] [place] [address] PCP - General 07/29/13 documented as of this encounter
--- OUTSIDE RECORDS SUMMARY | 2024-06-01 10:04 | XMS_ITS | Encounter Summary ---
Author Organization [facility] [place] [address] Care Team Providers Care Irrigator Name Role Phone Ana Her MD Primary Care Provider [phone] Encounter Details Date Type Department Care Team (Latest Contact Info) Description 02/25/2017 2:59 PM EDT - 02/25/2017 11:59 PM EDT Hospital [place] [phone] Enzo Burkett MD Abnormal finding on breast [...] associated with invasive carcinoma. Enzo Burkett MD [facility] MAMMO ORDERABLES * Surgical Pathology Report (02/25/2017 3:01 PM EDT) Final Diagnosis [id number] ? Location: 3L The signing pathologist has [...] FISH. ??Direct analysis was performed using the [employer] Kit. ??Slide adequacy and signal enumeration were [...] factor receptor 2 testing in breast cancer: [place] [employer] of Clinical Oncology/College of [place] [employer]ologists clinical practice guideline update. J Clin Oncol. 2013 Nov . Reviewed by: Kyara Logan MD Window Dresser, Molecular Pathology _ Electronically signed by: ??Epifanio Serra MD Verified: ??03/04/2017 ?Pathologist Performed at: ??-[facility] Dept. of Pathology, [place], [place] ? Addendum ADDENDUM DISCUSSION Immunohistochemist ry Studies Specimen: Left breast, core needle biopsy (A1) ER immunoreactivity: Positive ( ??>90% cancer cells with immunostaining) Stain intensity: Strong . ADDENDUM DISCUSSION NE immunoreactivity: Positive ( ??>90% cancer cells with [...] The assays were performed according to the hospice nurse practitioner ' s instructions using Anti-ER (SP1) and Anti-NE (16) antibodies. Electronically signed by: ??Epifanio Serra MD Verified: ??02/27/2017 ?Pathologist Performed at: ??-[facility] Dept. of Pathology, [place], [place] ?Surgical Pathology DIAGNOSIS Needle biopsies: ?Left breast Diagnosis: ?Invasive mucinous carcinoma (see Discussion) ?Intermediate grade, modified SBR score = 6 Microcalcification s: ??Few calcifications associated with invasive carcinoma Electronically signed by: ??Ponce MELTON, Epifanio Gamez Verified: ??02/26/2017 ?Pathologist Performed at: ??-[facility] Dept. of Pathology, [place], [place] DISCUSSION Studies for ER, NE, and HER2 have been ordered; results will [...] [facility] [place] [address] documented in this encounter Visit Diagnoses Diagnosis Abnormal finding on breast imaging Other (abnormal) findings on radiological examination of breast documented in this encounter Care Teams Irrigator Relationship Specialty Start Date End Date Ana Her MD [address] [place] [address] PCP - General 07/29/13 documented as of this encounter
--- OUTSIDE RECORDS SUMMARY | 2024-06-01 10:04 | XMS_ITS | Encounter Summary ---
Author Organization [facility] [place] [address] Care Team Providers Care Assisted Living Care Manager Name Role Phone Ana Her MD Primary Care Provider [phone] Encounter Details Date Type Department Care Team (Late st Contact Info) Description 03/19/2017 Telephone [place] [address] Malika Chen MD [facility] [place] [address] Social History Tobacco Use Types Packs/Day Years [...] no unexpected bleeding. Surgery is scheduled in [facility]. documented in this encounter Plan of Treatment Not on file documented as of this encounter Visit Diagnoses Not on filedocumented in this encounter Care Teams Assisted Living Care Manager Relationship Specialty Start Date End Date Ana Her MD [address] [facility] [address] [place] [address] PCP - General 07/29/13 documented as of this encounter
--- OUTSIDE RECORDS SUMMARY | 2024-06-01 10:04 | XMS_ITS | Encounter Summary ---
Author Organization [facility] Address [address] [place] [address] Care Team Providers Care Painter Name Role Phone Unknown, Provider Primary Care Provider Unava ilable Encounter Details Date Type Department Care Team (Late st Contact Info) Description 03/17/2017 Results Only [facility] [phone] Kat Lazaro MD On license of [facility] [address] [place], [place] [id number] Social History Tobacco Use Types Packs/Day Years [...] ? DIGNA KIMBROUGH ? Accession #: ? [id number] ? : ? 1945 (Age: 71) ??F [...] of Report [facility] SERVICES 03/17/2017 16:1 5 EST 03/17/2017 16:15 EST us Kat Lazaro MD PATHOLOGY ORDERABLES Fin al Result [facility] [address] [place] [address] documented in this encounter Visit Diagnoses Not on filedocumented in this encounter Care Teams Painter Relationship Specialty Start Date End Date Unknown, Provider, PCP - General 01/13/14 documented as of this encounter
--- OUTSIDE RECORDS SUMMARY | 2024-06-01 10:04 | XMS_ITS | Encounter Summary ---
Author Organization [facility] Address [facility] [place] [address] Care Team Providers Care Manager Rfid Name Role Phone Unavailable Primary Care Provider Unavailabl e Encounter Details Date Type Department Care Team (Latest Contact Info) Description 12/08/2008 - 12/08/2008 11:59 PM EDT Hospital Encounter Radiology Library at [facility] [place] [address] Jackie Cisneros APRN [facility] [place] [place] [address] Discharge Disposition: Home Social History Tobacco Use [...]
--- OUTSIDE RECORDS SUMMARY | 2024-06-01 10:04 | XMS_ITS | Encounter Summary ---
Author Organization [facility] Address [facility] [place] [address] Care Team Providers Care Postdoctoral Scientist Name Role Phone Ana Her MD Primary Care Provider [phone] Encounter Details Date Type Department Care Team (Latest Contact Info) Description 02/23/2017 3:50 PM EDT - 02/23/2017 11:59 PM EDT Hospital Encounter Radiology Library at [facility] [place] [phone] Jackie Cisneros APRN [address] [place] [address] Left breast mass Discharge Disposition: Home Social [...] recommended. Please note: The interpretation of the [facility] Breast Imaging Radiologist subspecialist may differ from the original radiologists interpretation. This is usually not due to a deficiency of the original interpreting radiologist, rather due to the greater skill level afforded by sub-specialization in the field and/or reasonable variations in interpretations. If you have a concern regarding the D-H interpretation you may contact the [facility] Breast Account Leader Office at . I have personally reviewed [...] the care of this patient. STUDIES FROM: [facility] DATES: Screening mammogram 02/12/2017, diagnostic mammogram [...] alter the care of thispatient. STUDIES FROM: [facility] DATES: Screening mammogram 02/12/2017, diagnostic mammogram [...] recommended. Please note: The interpretation of the [facility] BreastImaging Radiologist subspecialist may differ from the original radiologists interpretation. This is usually not due to a deficiency of the original interpreting radiologist, rather due to the greater skill level affordedby sub-specialization in the field and/or reasonable variations ininterpretations. If you have a concern regarding the D-H interpretation [facility] may [facility] Breast Account Leader [facility] at . I have personally reviewed the image(s) and the residents interpretationand agree with the findings, ROBERT THOMPSON at 02/24/2017 8:41 AM 8:41 AM Jackie Cisneros [facility] IMG OUTSIDE INTERPRE TATION ORDERABLES documented in this encounter Visit Diagnoses Diagnosis Left breast mass Lump or mass in breast documented in this encounter Care Teams Postdoctoral Scientist Relationship Specialty Start Date End Date Ana Her MD [address] [place] [address] PCP - General 07/29/13 documented as of this encounter
--- OUTSIDE RECORDS SUMMARY | 2024-06-01 10:04 | XMS_ITS | Encounter Summary ---
Author Organization [facility] [place] [address] Care Team Providers Care Sole Molding Machine Operator Name Role Phone Ana Her MD Primary Care Provider [phone] Encounter Details Date Type Department Care Team (Late st Contact Info) Description 03/03/2017 Notes [place] [address] January Ward MSW Social History Tobacco Use Types Packs/Day Years Used Date Smoking Tobacco: Never Smokeless Tobacco: Never Sex and Gender Information Value Date Recorded Sex Assigned at Not on file Gender Identity Not on file Sexual Orientation Not on file documented as of this encounter Progress Notes * January Ward MSW - 03/03/2017 12:56 PM EDT OFFICE OF CARE MANAGEMENT/CONTINUING FILM WAXER Reason for referral: Digna Olson is a 71 year old, female who was seen in the multidisciplinarybreast care clinic for a surgical consult as she was recently diagnosed with ER/AR+, left breast, invasive mucinous carcinoma. After meeting with Dr. Chen, pt has decided to have a lumpectomy/SLNB. If pt needs radiation therapy, she will receive it at the [facility]. [facility] met with pt to complete a psychosocial assessment and to explain my role in the breast program. Pt was encouraged to contact me if she has any questions or concerns. Living arrangements/social supports: Pt lives alone in [place], [place]. She has support from her family and is accompanied to today's appt by her sisters who live in [place]. Employment/Insurance/Finances: Pt is retired and receives Social [...] Oliva is the SW for the [facility]. Plan: [facility] will continue to follow pt to assess and assist with their psychosocial needs. DELONTE Moreno [facility]/[place] [phone] Pager #[phone] documented in this encounter Plan of Treatment Not on file documented as of this encounter Visit Diagnoses Not on filedocumented in this encounter Care Teams Sole Molding Machine Operator Relationship Specialty Start Date End Date Ana Her MD [address] [place] [address] PCP - General 07/29/13 documented as of this encounter
--- OUTSIDE RECORDS SUMMARY | 2024-06-01 10:04 | XMS_ITS | Referral Summary ---
Author Organization [facility] Address [address] [place] [address] Care Team Providers Care Metal Moulder Name Role Phone Unknown, Provider MD Primary Care Provider Unava ilable Social History Tobacco Use Types Packs/Day Years Used Date Smoking Tobacco: Never Assessed Comments Unknown Sex and Gender Information Value Date Recorded Sex Assigned at Not on file Legal Sex Female 9:32 EDT Gender Identity Not on file Sexual Orientation Not on file Plan of Treatment Not on file Care Teams Metal Moulder Relationship Specialty Start Date End Date Unknown, Provider, PCP - General 01/13/14
--- OUTSIDE RECORDS SUMMARY | 2024-06-01 10:04 | XMS_ITS | Encounter Summary ---
Author Organization [facility] Address [facility] [place] [address] Care Team Providers Care Hand Tier Name Role Phone Ana Her MD Primary Care Provider [phone] Encounter Details Date Type Department Care Team (Latest Contact Info) Description 04/24/2014 - 04/24/2014 11:59 PM EST Hospital Encounter Radiology Library at [facility] [place] [address] Maryam Yee MD [facility] [place] [address] Screening breast examination Discharge Disposition: Home Social [...] Only Mammo (04/24/2014 12:00 AM EST) Narrative [facility] - 02/19/2017 1:46 PM EDT This exam is for storage only and is auto-finalizing. Maryam Yee MD IMG FILM LIBRARY O RDERABLES [place], [place] documented in this encounter Visit Diagnoses Diagnosis Screening breast examination Other screening breast examination documented in this encounter Care Teams Hand Tier Relationship Specialty Start Date End Date Ana Her MD [address] [facility] [address] [place] [address] PCP - General 07/29/13 documented as of this encounter
--- OUTSIDE RECORDS SUMMARY | 2024-06-01 10:04 | XMS_ITS | Encounter Summary ---
[place] [address] Care Team Providers Care Bed Rubber Name Role Phone Ana Her MD Primary Care Provider [phone] Encounter Details Date Type Department Care Team (Late st Contact Info) Description 03/18/2017 Telephone [place] [phone] Bryanna Marsh RN Social History Tobacco Use [...] notes she had a colonoscopy done at [facility] and developed atrial fibrillation; she has been started on blood thinners. She was just discharged from the [facility] hospital, and called us to let us [...] give Digna a call her number is [phone]. The below is from Dr. Chen visit [...] filedocumented in this encounter Care Teams Bed Rubber Relationship Specialty Start Date End Date Ana Her MD [address] [place] [address] PCP - General 07/29/13 documented as of this encounter
--- OUTSIDE RECORDS SUMMARY | 2024-06-01 10:04 | XMS_ITS | Encounter Summary ---
[place] [address] Care Team Providers Care Steward/Stewardess Third Class Name Role Phone Ana Her MD Primary Care Provider [phone] Encounter Details Date Type Department Care Team (Late st Contact Info) Description 02/27/2017 Telephone Hematology [place] [phone] Argentina Sanchez RN Social History Tobacco Use [...] (left breast U/S guided biopsy 02/25/2017 at [facility] Alma Delia sounds positive and has support. She will have someone accompany her to appointments. She appears to be coping well but is anxious to meet with a breast surgeon to determine a treatment plan. Alma Delia have a bone SPECT done 1-2 months ago at [facility] and her doctor there questioned [...] for her review (a link to the [facility] Early Stage Breast Cancer program). The Breast [...] filedocumented in this encounter Care Teams Steward/Stewardess Third Class Relationship Specialty Start Date End Date Ana Her MD [address] [place] [address] PCP - General 07/29/13 documented as of this encounter
--- OUTSIDE RECORDS SUMMARY | 2024-06-01 10:04 | XMS_ITS | Encounter Summary ---
Author Organization [facility] [place] [address] Care Team Providers Care Hop Farmer Name Role Phone Ana Her MD Primary Care Provider [phone] Encounter Details Date Type Department Care Team (Late st Contact Info) Description 08/16/2014 Orders Only Functional Rastafari Program at [facility] [address] [place] [address] Khari Martínez MD Social History Tobacco Use [...] on filedocumented in this encounter Care Teams Hop Farmer Relationship Specialty Start Date End Date Ana Her MD [facility] [address] [facility] [address] [place] [address] PCP - General 07/29/13 documented as of this encounter
--- OUTSIDE RECORDS SUMMARY | 2024-06-01 10:04 | XMS_ITS | Encounter Summary ---
Author Organization [facility] Address [facility] [place] [address] Care Team Providers Care Public Policy Manager Name Role Phone Unavailable Primary Care Provider Unavailabl e Encounter Details Date Type Department Care Team (Latest Contact Info) Description 03/19/2006 - 03/19/2006 11:59 PM EST Hospital Encounter Radiology Library [place] [address] Jackie Cisneros APRN [facility] [place] [address] Discharge Disposition: Home Social History Tobacco Use [...]
--- OUTSIDE RECORDS SUMMARY | 2024-06-01 10:04 | XMS_ITS | Encounter Summary ---
Author Organization [facility] Address [facility] [place] [address] Care Team Providers Care Almond Paste Mixer Name Role Phone Unavailable Primary Care Provider Unavailabl e Encounter Details Date Type Department Care Team (Latest Contact Info) Description 12/19/2009 - 12/19/2009 11:59 PM EDT Hospital Encounter Radiology Library [place] [address] Jackie Cisneros APRN [facility] [place] [address] Discharge Disposition: Home Social History Tobacco Use [...] [facility] - 02/23/2017 3:29 PM EDT This exam is for storage only and is auto-finalizing. Jackie Cisneros APRN IMG FILM LIBRARY ORD ERABLES NADINE Sethi documented in this encounter Visit Diagnoses Not on filedocumented in this encounter
--- OUTSIDE RECORDS SUMMARY | 2024-06-01 10:04 | XMS_ITS | Encounter Summary ---
Author Organization [facility] [place] [address] Care Team Providers Care Premium Service Representative Name Role Phone Ana Her MD Primary Care Provider [phone] Encounter Details Date Type Department Care Team (Latest Contact Info) Description 02/25/2017 1:31 PM EDT Hospital En[place] [address] Maryam Yee MD [facility] [place] [address] Abnormal mammogram Discharge Disposition: Home Social History [...] unspecified documented in this encounter Care Teams Premium Service Representative Relationship Specialty Start Date End Date Ana Her MD [address] [place] [address] PCP - General 07/29/13 documented as of this encounter
--- OUTSIDE RECORDS SUMMARY | 2024-06-01 10:04 | XMS_ITS | Encounter Summary ---
Author Organization [facility] Address [facility] [place] [address] Care Team Providers Care Vegetable Inspector Name Role Phone Unavailable Primary Care Provider Unavailabl e Encounter Details Date Type Department Care Team (Latest Contact Info) Description 04/04/2005 - 04/04/2005 11:59 PM EST Hospital Encounter Radiology Library [place] [address] Jackie Cisneros APRN [facility] [place] [address] Discharge Disposition: Home Social History Tobacco Use [...]
--- OUTSIDE RECORDS SUMMARY | 2024-06-01 10:04 | XMS_ITS | Encounter Summary ---
[place] [address] Care Team Providers Care Internet Sourcer Name Role Phone Ana Her MD Primary Care Provider [phone] Reason for Visit * Reason Comments Low Back Pain Encounter Details Date Type Department Care Team (Late st Contact Info) Description 08/30/2014 8:35 AM EDT Office Visit [place] [phone] Michelle Hurtado APRN [facility] [address] Neurogenic claudication due to lumbar spinal stenosis [...] this encounter Progress Notes * Michelle Hurtado, MACHINE EDGE BANDER - 08/30/2014 9:37 AM EDT CHIEF COMPLAINT: [...] activity. 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 MEDICATIONS & [...] care of this patient. Michelle Hurtado MS, MACHINE EDGE BANDER, ENROLLMENT CLERK-C [facility] documented in this encounter Plan of Treatment Not on file documented as of this encounter Visit Diagnoses Diagnosis Neurogenic claudication due to lumbar spinal stenosis Spinal stenosis, lumbar region, with neurogenic claudication documented in this encounter Care Teams Internet Sourcer Relationship Specialty Start Date End Date Ana Her MD [address] [place] [address] PCP - General 07/29/13 documented as of this encounter
--- OUTSIDE RECORDS SUMMARY | 2024-06-01 10:04 | XMS_ITS | Encounter Summary ---
Author Organization [facility] Address [facility] [place] [address] Care Team Providers Care Field Nurse Case Manager Name Role Phone Ana Her MD Primary Care Provider [phone] Encounter Details Date Type Department Care Team (Latest Contact Info) Description 02/17/2017 - 02/17/2017 12:14 AM EDT Hospital Encounter Radiology Library at [facility] [place] [address] Maryam Yee MD [facility] [place] [address] Screening breast examination Discharge Disposition: Home Social [...] Only Mammo (02/17/2017 12:00 AM EDT) Narrative [facility] - 02/19/2017 1:59 PM EDT This exam is for storage only and is auto-finalizing. Maryam Yee MD IMG FILM LIBRARY O RDERABLES Performing Organization Address City/State/[facility] Co de Phone Number [place], [place] documented in this encounter Visit Diagnoses Diagnosis Screening breast examination Other screening breast examination documented in this encounter Care Teams Field Nurse Case Manager Relationship Specialty Start Date End Date Ana Her MD [address] [place] [address] PCP - General 07/29/13 documented as of this encounter
--- OUTSIDE RECORDS SUMMARY | 2024-06-01 10:04 | XMS_ITS | Encounter Summary ---
Author Organization [facility] Address [address] [place] [address] Care Team Providers Care Aquaculture Worker Name Role Phone Unknown, Provider Primary Care Provider Unava ilable Encounter Details Date Type Department Care Team (Late st Contact Info) Description 01/20/2020 Lab Requisition [facility] Pathology & Laboratory [facility] [address] [place] [address] Outr Resulting Lab, Provider Social History Tobacco [...] rt-PCR Result NEGATIVE Negative 01/21/2020 16:10 EDT [facility] Comment: 2019-novel Coronavirus [...] in accordance with CLIA regulations, [employer] (CAP) guidelines (Jul 21, 2019), and FDA guidance (Jul 02, 2019). This test is only for use under the Food and Drug Administration's Emergency Use Authorization. Swab ENTIRE NASOPHARYNX / Unknown 01/20/2020 10:30 EDT 01/20/2020 15:35 EDT us Provider Outr Resulting Lab MICROBIOLOGY - GENER AL ORDERABLES Final Result Performing Organization Address City/State/[facility] Co de Phone Number [facility] [place], [place] * COVID-19 TESTING (01/20/2020 10:30 EDT) COVID-19 rt-PCR Result NEGATIVE Negative 01/21/2020 17:[address] [facility] Comment: 2019-novel Coronavirus (2019-nCoV) not [...] in accordance with CLIA regulations, [employer] (CAP) guidelines (Jul 21, 2019), and FDA guidance (Jul 02, 2019). This test is only for use under the Food and Drug Administration's Emergency Use Authorization. Performing Lab [facility] 01/21/2020 17:21 EDT [facility] Swab 01/20/2020 10:3 0 EDT 01/20/2020 15:35 EDT us Provider Outr Resulting Lab MICROBIOLOGY - GENER AL ORDERABLES Final Result [facility] [address] [place] [address] [facility] [place], [place] documented in this encounter Visit Diagnoses Not on filedocumented in this encounter Care Teams Aquaculture Worker Relationship Specialty Start Date End Date Unknown, Provider, PCP - General 01/13/14 documented as of this encounter
--- OUTSIDE RECORDS SUMMARY | 2024-06-01 10:04 | XMS_ITS | Encounter Summary ---
Author Organization [facility] Address [facility] [place] [address] Care Team Providers Care Barratte Operator Name Role Phone Ana Her MD Primary Care Provider [phone] Encounter Details Date Type Department Care Team (Latest Contact Info) Description 02/12/2017 - 02/12/2017 11:59 PM EDT Hospital Encounter Radiology Library at [facility] [place] [address] Maryam Yee MD [facility] [place] [address] Screening breast examination Discharge Disposition: Home Social [...] FILM LIBRARY O RDERABLES Performing Organization Address City/State/[facility] Co de Phone Number [place], [place] documented in this encounter Visit Diagnoses Diagnosis Screening breast examination Other screening breast examination documented in this encounter Care Teams Barratte Operator Relationship Specialty Start Date End Date Ana Her MD [address] [place] [address] PCP - General 07/29/13 documented as of this encounter
--- OUTSIDE RECORDS SUMMARY | 2024-06-01 10:04 | XMS_ITS | Encounter Summary ---
Author Organization [facility] [place] [address] Care Team Providers Care Funeral Arranger Name Role Phone Ana Her MD Primary Care Provider [phone] Encounter Details Date Type Department Care Team (Latest Contact Info) Description 02/25/2017 1:36 PM EDT - 02/25/2017 2:58 PM EDT Hospital Encounter [place] [phone] Maryam Yee MD [facility] [place] [address] Abnormal mammogram Discharge Disposition: Home Social History [...] unspecified documented in this encounter Care Teams Funeral Arranger Relationship Specialty Start Date End Date Ana Her MD [address] [place] [address] [address] [place] [address] PCP - General 07/29/13 documented as of this encounter
--- OUTSIDE RECORDS SUMMARY | 2024-06-01 10:04 | XMS_ITS | Encounter Summary ---
Author Organization [facility] Address [address] [place] [address] Care Team Providers Care Jointer Operator Name Role Phone Unknown, Provider MD Primary Care Provider Unava ilable Encounter Details Date Type Department Care Team (Late st Contact Info) Description 04/06/2022 Lab Requisition [facility] Pathology & Laboratory Medicine - [facility] [address] [place] [address] Outr Resulting Lab, Provider Social History Tobacco [...] Salmonella PCR Negative Negative 04/06/2022 22:54 EST [facility] Shigella/Enteroin vasive E. coli Negative Negative 04/06/2022 22:54 EST [facility] HN LAB CAMPYLOBACTER PCR Negative Negative 04/06/2022 22:54 EST [facility] Shiga Toxin PCR Negative Negative 22:54 EST [facility] Feces SPECIMEN FROM RECTUM / Unknown 04/05/2022 10:41 EST 04/06/2022 18:31 EST us Provider Outr Resulting Lab MICROBIOLOGY - GENER AL ORDERABLES Final Result [facility] [address] [place] [address] documented in this encounter Visit Diagnoses Not on filedocumented in this encounter Care Teams Jointer Operator Relationship Specialty Start Date End Date Unknown, Provider, PCP - General 01/13/14 documented as of this encounter
--- OUTSIDE RECORDS SUMMARY | 2024-06-01 10:04 | XMS_ITS | Encounter Summary ---
Author Organization [facility] Address [facility] [place] [address] Care Team Providers Care Singer And Unloader Name Role Phone Unavailable Primary Care Provider Unavailabl e Encounter Details Date Type Department Care Team (Latest Contact Info) Description 11/12/2007 - 11/12/2007 11:59 PM EDT Hospital Encounter Radiology Library [place] [address] Jackie Cisneros APRN [facility] [place] [address] [place] [address] Discharge Disposition: Home Social History Tobacco Use [...] Only Mammo (11/12/2007 12:00 AM EDT) Narrative [facility] - 02/23/2017 3:31 PM EDT This exam is for storage only and is auto-finalizing. Jackie Cisneros APRN IMG FILM LIBRARY ORD ERABLES NADINE Sethi documented in this encounter Visit Diagnoses Not on filedocumented in this encounter
--- OUTSIDE RECORDS SUMMARY | 2024-06-01 10:04 | XMS_ITS | Encounter Summary ---
Author Organization [facility] Address [facility] [place] [address] Care Team Providers Care Barrel Charrer Helper Name Role Phone Unavailable Primary Care Provider Unavailabl e Encounter Details Date Type Department Care Team (Latest Contact Info) Description 12/25/2010 - 12/25/2010 11:59 PM EDT Hospital Encounter Radiology Library [place] [address] Jackie Cisneros APRN [facility] [place] [address] [place] [address] Discharge Disposition: Home Social History Tobacco Use [...] (12/25/2010 12:00 AM EDT) Narrative [facility] - 02/23/2017 3:27 PM EDT This exam is for storage only and is auto-finalizing. Jackie Cisneros APRN IMG FILM LIBRARY ORD ERABLES NADINE Sethi documented in this encounter Visit Diagnoses Not on filedocumented in this encounter
--- OUTSIDE RECORDS SUMMARY | 2024-06-01 10:04 | XMS_ITS | Encounter Summary ---
Author Organization [facility] Address [address] [place] [address] Care Team Providers Care Physical Therapy Coordinator Name Role Phone Unknown, Provider MD Primary Care Provider Unava ilable Encounter Details Date Type Department Care Team (Late st Contact Info) Description 10/26/2022 Lab Requisition [facility] Pathology & Laboratory Medicine - [facility] [address] [place] [address] Outr Resulting Lab, Provider Social History Tobacco [...] Neg and Giardia Antigen Neg 13:48 EDT [facility] Feces SPECIMEN FROM RECTUM / Unknown 10/25/2022 15:00 EDT 10/26/2022 15:25 EDT us Provider Outr Resulting Lab MICROBIOLOGY - GENER AL ORDERABLES Final Result [facility] [address] [place] [address] * FECAL BACTERIAL PATHOGENS BY PCR (10/25/2022 15:00 EDT) Salmonella PCR Negative Negative 10/26/2022 19:17 EDT [facility] Shigella/Enteroin vasive E. coli Negative Negative 10/26/2022 19:17 EDT [facility] HN LAB CAMPYLOBACTER PCR Negative Negative 10/26/2022 19:17 EDT [facility] Shiga Toxin PCR Negative Negative 19:17 EDT [facility] Feces SPECIMEN FROM RECTUM / Unknown 10/25/2022 15:00 EDT 10/26/2022 15:25 EDT us Provider Outr Resulting Lab MICROBIOLOGY - GENER AL ORDERABLES Final Result Performing Organization Address [facility] Co de Phone Number [facility] [address] [place] [address] * OVA/PARASITE EXAM (10/25/2022 15:00 EDT) Parasite No ova and parasites seen. 10/28/2022 15:08 EDT [facility] Feces SPECIMEN FROM RECTUM / Unknown 10/25/2022 15:00 EDT 10/26/2022 15:25 EDT Narrative [facility] - 10/28/2022 15:08 EDT (If Cryptosporidium, Cyclospora, or Microsporidium are suspected, specific tests must be requested.) Single negative specimen does not rule out the possibility of a parasitic infection. us Provider Outr Resulting Lab MICROBIOLOGY - GENER AL ORDERABLES Final Result Performing Organization Address City/[facility]/ZIP Co de Phone Number [facility] [address] [place] [address] documented in this encounter Visit Diagnoses Not on filedocumented in this encounter Care Teams Physical Therapy Coordinator Relationship Specialty Start Date End Date Unknown, Provider, PCP - General 9/12/14 documented as of this encounter
--- OUTSIDE RECORDS SUMMARY | 2024-06-01 10:04 | XMS_ITS | Encounter Summary ---
Author [place] [address] Care Team Providers Care Ruching Machine Operator Name Role Phone Ana Her MD Primary Care Provider [phone] Encounter Details Date Type Department Care Team (Late st Contact Info) Description 07/26/2013 Orders [place] [address] Ana Her MD [facility] [address] [place] [address] Social History Tobacco Use Types Packs/Day Years [...] is a Non-reportable exam Ana Her MD [facility] FILM LIBRARY ORD ERABLES documented in this encounter Visit Diagnoses Not on filedocumented in this encounter Care Teams Ruching Machine Operator Relationship Specialty Start Date End Date Ana Her MD [address] [place] [address] PCP - General 07/29/13 documented as of this encounter
--- OUTSIDE RECORDS SUMMARY | 2024-06-01 10:04 | XMS_ITS | Encounter Summary ---
[place] [address] Care Team Providers Care Furnace Brazer Name Role Phone Ana Her MD Primary Care Provider [phone] Reason for Visit * Reason Comments Establish Care * Consultation (Routine) - Specialty Diagnoses / Procedures Referred By Christiano hackett Referred To Contact Hematology and Oncology Diagnoses Other abnormal and inconclusive findings on diagnostic imaging of breast abnormal mammo, left breast Jackie Cisneros, WENDY [address] [place] [address] [facility] [address] [place] [address] Referral ID Status Reason Start Date Expiration Date V isits Requested Visits Authorized [id number] Consult, Test & Treat Connection [facility] 02/17/2017 05/20/2017 6 6 Encounter Details Date Type Department Care Team (Late st Contact Info) Description 03/03/2017 9:00 AM EDT Office [place] [address] Malika Chen MD [facility] [address] Argentina Sanchez, RN Malignant neoplasm [...] Exercises handout created by physical therapists at [facility]. 7. Breast Cancer Treatment Process care map provided and reviewed. 8. Things to Consider...What I Wish I Knew advice from breast cancer patients handout provided. She verbalized understanding of the plan of care and states all her questions were answered. Twentyminutes was spent in education and providing support. Alma Delia has our contact information. 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 She has no known breast masses, no adenopathy, no nipple discharge. Alma Delia had a bone scan in [place] which was read as possible metastasis in the left tibia. Of note- she fractured this area recently. She has recovered well. PMH HNT NIDDM not on meds Spinal stenosis Fractured left tibial plateau December, GERD FH: Maternal first cousin with breast cancer Brother with rectal cancer Sister with PE SH: lives alone. Has good support from sisters who live in [place]. Non smoker. Has a son who lives [...] positive documented in this encounter Care Teams Furnace Brazer Relationship Specialty Start Date End Date Ana Her MD [address] [place] [address] PCP - General 07/29/13 documented as of this encounter
--- OUTSIDE RECORDS SUMMARY | 2024-06-01 10:04 | XMS_ITS | Encounter Summary ---
[place] [address] Care Team Providers Care Lead Simulation Modeling Engineer Name Role Phone Ana Her MD Primary Care Provider Encounter Details Date Type Department Care Team (Latest Contact Info) Description 03/03/2017 7:55 AM EDT Laboratory Appointment Lab [address] [place] [address] Malignant neoplasm of left breast in female, [facility] Lymph % 14.4 % [facility] Lymphocytes Abs 1.3 0.9 - 3.2 x10(3)/ L [facility] Monocyte % 5.6 % [facility] Monocyte Abs 0.5 0.3 - 0.9 x10(3)/ L [facility] Eos % 6.1 % [facility] Eosinophils Abs 0.5(H) 0.0 - 0.4 x10(3)/ L [facility] Basophil % 0.6 % [facility] [...] HEMATOLOGY ORDERABL ES [facility] [place] [address] * (ABNORMAL) Hemogram (03/03/2017 7:50 AM EDT) [...] RDW Standard Deviation 48.3(H) 37.0 - 46.0 [facility] RDW coefficient of variation 13.9 [...] HEMATOLOGY ORDERABL ES [facility] [place] [address] * (ABNORMAL) Comprehensive metabolic panel (non-fasting) (03/03/2017 [...] or in patients with acute kidney failure. [email or web address] [email or web address] Blood specimen (specimen) 03/03/2017 7:50 AM EDT 03/03/2017 8:03 AM EDT Narrative Resulting Agency Comment Spec In Lab Malika Chen MD [place] [address] documented in this encounter Visit Diagnoses Diagnosis Malignant neoplasm of left breast in female, estrogen receptor positive, unspecified site of breast documented in this encounter Care Teams Lead Simulation Modeling Engineer Relationship Specialty Start Date End Date Ana Her MD [address] [place] [address] PCP - General 07/29/13 documented as of this encounter
--- OUTSIDE RECORDS SUMMARY | 2024-06-01 10:04 | XMS_ITS | Encounter Summary ---
Author Organization [facility] [place] [address] Care Team Providers Care Veterans Adviser Name Role Phone Ana Her MD Primary Care Provider [phone] Encounter Details Date Type Department Care Team (Latest Contact Info) Description 02/25/2017 1:32 PM EDT - 02/25/2017 1:35 PM EDT Hospital [place] [id number] Maryam Yee MD [facility] [place] [address] Abnormal mammogram Discharge Disposition: Home Social History [...] MD PATHOLOGY/CYTOLOGY O [facility] [place] [address] documented in this encounter Visit Diagnoses Diagnosis [...] mg documented in this encounter Care Teams Veterans Adviser Relationship Specialty Start Date End Date Ana Her MD [address] [place] [address] PCP - General 07/29/13 documented as of this encounter
--- OUTSIDE RECORDS SUMMARY | 2024-06-01 10:04 | XMS_ITS | Encounter Summary ---
Author Organization [facility] [place] [address] Care Team Providers Care Sales Representative Name Role Phone Ana Her MD Primary Care Provider [phone] Encounter Details Date Type Department Care Team (Latest Contact Info) Description 02/17/2017 12:15 AM EDT - 02/17/2017 11:59 PM EDT Hospital Encounter Radiology Library at [facility] [place] [address] Maryam Yee MD [facility] [place] [address] Screening breast examination Discharge Disposition: Home Social [...] (02/17/2017 12:15 AM EDT) Narrative [facility] - 02/19/2017 2:01 PM EDT This exam is for storage only and is auto-finalizing. Maryam Yee MD IMG FILM LIBRARY O RDERABLES [place], [place] documented in this encounter Visit Diagnoses Diagnosis Screening breast examination Other screening breast examination documented in this encounter Care Teams Sales Representative Relationship Specialty Start Date End Date Ana Her MD [address] [place] [address] PCP - General 07/29/13 documented as of this encounter
--- OUTSIDE RECORDS SUMMARY | 2024-06-01 10:04 | XMS_ITS | Encounter Summary ---
Author Organization [facility] [place] [address] Care Team Providers Care Guest Service Supervisor Name Role Phone Ana Her MD Primary Care Provider [phone] Encounter Details Date Type Department Care Team (Late st Contact Info) Description 02/27/2017 Orders [place] [address] Malika Chen MD [facility] [place] [address] Malignant neoplasm of left breast in female, [...] LABORATORY Est Glomerular Filtration Rate 58(L) >=60 [facility] Comment: The reported eGFR should be multiplied by 1.2 for patients. The MDRD is not an appropriate measure of renal function for patients with body mass extremes or in patients with acute kidney failure. [email or web address]/DHnkdep [email or web address]/DHMCnkf Blood specimen (specimen) 03/03/2017 7:50 AM EDT 03/03/2017 8:03 AM EDT Narrative Resulting Agency Comment Spec In Lab Malika Chen MD CHEMISTRY ORDERABLE S [facility] [place] [address] documented in this encounter Visit Diagnoses Diagnosis Malignant neoplasm of left breast in female, estrogen receptor positive, unspecified site of breast documented in this encounter Care Teams Guest Service Supervisor Relationship Specialty Start Date End Date Ana Her MD [address] [facility] [address] [place] [address] PCP - General 07/29/13 documented as of this encounter
--- OUTSIDE RECORDS SUMMARY | 2024-06-01 10:04 | XMS_ITS | Encounter Summary ---
[place] [address] Care Team Providers Care Sales Representative Raw Fibers Name Role Phone Ana Her MD Primary Care Provider Reason for Visit * Reason Comments Low Back Pain Bilateral Hip Pain when standing or wal jaquelin Encounter Details Date Type Department Care Team (Late st Contact Info) Description 09/12/2014 11:20 AM EDT Office [place] [phone] Kris Benoit MD Neurogenic claudication due to [...] pain free. Lumbar MRI from 08/16/2014 from [facility] is notable for multilevel degenerative changes L2-L3, L3-L4, L4-L5, L5-S1. At L2-L3, she has eyyvqvkv-am-yzwifk spinal stenosis, but she has no leg [...] in this encounter Care Teams Sales Representative Raw Fibers Relationship Specialty Start Date End Date Ana Her MD [address] [place] [address] PCP - General 07/29/13 documented as of this encounter
--- OUTSIDE RECORDS SUMMARY | 2024-06-01 10:04 | XMS_ITS | Encounter Summary ---
Author Organization [facility] [place] [address] Care Team Providers Care Health And Safety Specialist Name Role Phone Ana Her MD Primary Care Provider [phone] Encounter Details Date Type Department Care Team (Late st Contact Info) Description 03/04/2017 Orders Only [place] [address] Malika Chen MD [facility] [place] [address] Malignant neoplasm of upper-outer quadrant of left [...] MD IMG MAMMO ORDERABLE S * Mammo [place] Node Injection (03/30/2017 9:01 AM EST) Anatomical [...] positive documented in this encounter Care Teams Health And Safety Specialist Relationship Specialty Start Date End Date Ana Her MD [address] [facility] [address] [place] [address] PCP - General 07/29/13 documented as of this encounter
--- OUTSIDE RECORDS SUMMARY | 2024-06-01 10:04 | XMS_ITS | Encounter Summary ---
[place] [address] Care Team Providers Care Banana Grader Name Role Phone Ana Her MD Primary Care Provider [phone] Reason for Visit * Reason Onset Date Comments Referral 07/29/2013 Encounter Details Date Type Department Care Team (Late st Contact Info) Description 07/29/2013 Telephone [place] [phone] Sophia Palacios Referral Social History Tobacco Use [...] on filedocumented in this encounter Care Teams Banana Grader Relationship Specialty Start Date End Date Ana Her MD [address] [facility] [address] [place] [address] PCP - General 07/29/13 documented as of this encounter
--- OUTSIDE RECORDS SUMMARY | 2024-06-01 10:04 | XMS_ITS | Encounter Summary ---
Author Organization [facility] Address [facility] [address] Care Team Providers Care Coremaker Helper Name Role Phone Unavailable Primary Care Provider Unavailabl e Encounter Details Date Type Department Care Team (Latest Contact Info) Description 01/29/2013 - 01/29/2013 11:59 PM EDT Hospital Encounter Radiology Library at [facility] [place] [place] [address] Jackie Cisneros APRN [facility] [place] [place] [address] Discharge Disposition: Home Social History Tobacco Use [...] Only Mammo (01/29/2013 12:00 AM EDT) Narrative [facility] - 02/23/2017 3:26 PM EDT This exam is for storage only and is auto-finalizing. Jackie Cisneros APRN IMG FILM LIBRARY ORD ERABLES NADINE Sethi documented in this encounter Visit Diagnoses Not on filedocumented in this encounter
--- OUTSIDE RECORDS SUMMARY | 2024-06-01 10:04 | XMS_ITS | Encounter Summary ---
Author Organization [facility] Address [facility] [place] [address] Care Team Providers Care Health Aid Name Role Phone Ana Her MD Primary Care Provider [phone] Encounter Details Date Type Department Care Team (Latest Contact Info) Description 10/28/2016 - 10/28/2016 11:59 PM EDT Hospital Encounter Radiology Library [place] [facility] [place] [address] Ricky Lowry MD Discharge Disposition: Home Social [...] DXA Images (10/28/2016 12:00 AM EDT) Narrative [facility] - 04/24/2017 2:13 PM EST This exam is for storage only and is auto-finalizing. Ricky Lowry MD IMG FILM LIBRARY ORD ERABLES Performing Organization Address City/State/[facility] Co de Phone Number [place], [place] documented in this encounter Visit Diagnoses Not on filedocumented in this encounter Care Teams Health Aid Relationship Specialty Start Date End Date Ana Her MD [address] [place] [address] PCP - General 07/29/13 documented as of this encounter
--- OUTSIDE RECORDS SUMMARY | 2024-06-01 10:04 | XMS_ITS | Encounter Summary ---
Author Organization [facility] Address [address] [place] [address] Care Team Providers Care Parking Enforcement Specialist Name Role Phone Unavailable Primary Care Provider Unavailabl e Encounter Details Date Type Department Care Team (Latest Contact Info) Description 01/10/2014 20:50 EDT - 01/10/2014 23:59 EDT Hospital Encounter [facility] [address] [place] [address] Unknown, Provider, MD Discharge Disposition: Home or [...]
--- NOTE | 2024-06-03 10:00 | RT.EKG_ITS ---
APPROVED REPORT Exam: Resting ECG Reason for Exam: baseline rhythm intrepretation Patient Location: O HR:81 bpm ECG Measurements Heart Rate 81 AXIS GA [id number] P [id number] QRSd 147 QRS -68 QT 462 T 28 QTc 537 Conclusion Atrial fibrillation...? atrial activity Ventricular premature complex...V complex w/ short R-R interval RBBB and LAFB...QRSd >120mS, axis(-40,240)
--- OUTSIDE RECORDS SUMMARY | 2024-06-03 10:38 | XMS_ITS | Encounter Summary ---
[place] [address] Care Team Providers Care Plasma Center Nurse Name Role Phone Ana Her MD Primary Care Provider [phone] Encounter Details Date Type Department Care Team (Late st Contact Info) Description 02/03/2023 Telephone Hematology [place] [address] Maryam Barrett Social History Tobacco Use Types [...] on filedocumented in this encounter Care Teams Plasma Center Nurse Relationship Specialty Start Date End Date Ana Her MD [address] [place] [address] PCP - General 07/29/13 documented as of this encounter
--- OUTSIDE RECORDS SUMMARY | 2024-06-03 10:38 | XMS_ITS | Patient Health Record ---
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 Vital Signs Height 5ft 4in in 02/16/2024 Weight 170 lbs 02/16/2024 BMI 29.18 02/16/2024 Encounters Encounter Location Date Provider Diagnosis [facility] [address] [place], [place] [id number] 02/16/2024 VIKTOR SANCHEZ Ingrowing nail L60.0 ; [...] Date MEDICARE [address] [place] [phone] [id number] KODY KIMBROUGH Self - patient is the insured [facility] [address] [place] [address] [id number] KODY KIMBROUGH Self - patient is the insured Medical (General) History Medical History History ICD Code DIABETES ARTHRITIS ANEMIAHIGH B.P. CANCER GOUT HEART SISEASE ANKLE SPRAINS Surgical History Surgery Date(Month/Year) RT. ANKLE L. 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
--- OUTSIDE RECORDS SUMMARY | 2024-06-03 10:38 | XMS_ITS | Encounter Summary ---
Author Organization [facility] [place] [address] Care Team Providers Care Custom Leather Products Maker Name Role Phone Ana Her MD Primary Care Provider [phone] Encounter Details Date Type Department Care Team (Late st Contact Info) Description 03/09/2022 11:00 PM EST Ancillary Procedure Radiology Library [place] [facility] [place] [address] Ana Her MD [address] [place] [address] [facility] 1 [place], [place] [id number] Social History Tobacco Use Types Packs/Day Years [...] CT Chest (03/09/2022 10:56 PM EST) Narrative [facility] - 03/09/2022 10:56 PM EST This exam is auto-finalizing. It's purpose is for storage only. Ana Her MD IM FILM LIBRARY ORD ERABLES [place], [place] documented in this encounter Visit Diagnoses Not on filedocumented in this encounter Care Teams Custom Leather Products Maker Relationship Specialty Start Date End Date Ana Her MD [address] [facility] 1 [place] [address] PCP - General 07/29/13 documented as of this encounter
--- OUTSIDE RECORDS SUMMARY | 2024-06-03 10:38 | XMS_ITS | Encounter Summary ---
[place] [address] Care Team Providers Care Skidder Loader Name Role Phone Ana Her MD Primary Care Provider [phone] Encounter Details Date Type Department Care Team (Late st Contact Info) Description 10/23/2022 Telephone Mammography/[place] [address] Aby Loredo Social History Tobacco Use Types [...] Miscellaneous Notes * Telephone Encounter - Aby Loreod - 10/23/2022 11:52 AM EDT Pt declining f/u w/ Jeanine this year. documented in this encounter Plan of Treatment Not on file documented as of this encounter Visit Diagnoses Not on filedocumented in this encounter Care Teams Skidder Loader Relationship Specialty Start Date End Date Ana Her MD [address] [place] [address] PCP - General 07/29/13 documented as of this encounter
--- OUTSIDE RECORDS SUMMARY | 2024-06-03 10:38 | XMS_ITS | Continuity of Care Document ---
Author Organization [place] [facility] [employer] [facility], [facility] [place] [address] Care Team Providers Care Roving Department End Finder Name Role Phone GABINODC Property Assistant [facility] Orthopedic Surgeon [facility] Sleep Medicine [facility] Acute Care Physician Assessment No assessment recorded. Plan of Treatment Reminders Order Date Submit Date Provider Last Modified By Organization Details Last Modified Time Details Appointments None recorded. Lab BMP, serum or plasma 2023 024 [facility] (Registration ), [address] [place] [address] [place], [address], 4 11:42:49 vitamin D, 25-hydroxy , total, serum 2023 024 [facility] (Registration ), [address] [place] [address] [place], [address], 4 16:09:19 HbA1c (hemoglobi n A1c), blood 2023 024 [facility] (Registration ), [address] [place] [address] [place], [address], 4 11:39:49 TSH, serum, reflex free T4 2023 024 [facility] (Registration ), [address] [place] [address] [place], [address], 4 11:40:25 CBC 2023 024 [facility] (Registration ), [address] [place] [address] Dr [facility] [place], [address], 4 15:08:25 ferritin, serum or plasma 2023 024 [facility] (Registration ), [address] [place] [address] [place], [address], 4 11:41:22 iron + total iron-lynn ng capacity (TIBC), serum 2023 024 [facility] (Registration ), [address] [place] [address] [place], [address], 4 11:43:17 Referral None recorded. Procedures None [...] humeral fracture 2023- MD [address], [place], [address] , [facility] 4 17:34:10 Hypothyr oidism 27294394 Active 1959 EVIE shaw, [facility] 4 10:29:59 [facility] l hyperten jason 81113396 Active 1959 EVIE shaw, [facility] 4 10:29:36 Hyperlip idemia 97149468 Active 1959 on statin MD [address], [place], [address] , [facility] 4 20:35:18 Spinal stenosis of lumbar region 56923646 Active 2012 s/p lumbar foramino parish L4 MD [address], [place], [address] , [facility] 4 20:36:41 Sleep apnea 24622156 Active 2012 on CPAP MD [address], [place], [address] , [facility] 4 20:39:31 Gastroes ophageal reflux disease without esophagi tis 545263712 Completed 195908/12/2023 Removal Reason: resolved with surgical repair of HH MD [address], [facility] [address] , [facility] 4 10:41:24 Family history of malignan t neoplasm of digestiv e organ 434172439 Active [address], [place], [address] , [facility] 4 20:37:03 Paresthe samir 77421576 Completed 201412/01/2014 11/28/19 15 - Comments only - Ana Wade MD - check B12 and folate Problem Code: R20.2; Problem Code Type: ICD-10; Not Available [facility] 3 05:53:48 Adult health examinat ion Active [address], [place], [address] , [facility] 4 20:33:34 Pre-surg [...] Z01.818; Problem Code Type: ICD-10; Not Available [facility] 3 05:53:48 Localize d edema 889075984 Completed 201501/29/2016 12/13/19 16 - Comments only - Ana Wade MD - and some on left as well, will check BMP. 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 Nusrat esparza for removal. Problem Code: L72.3; Problem Code Type: ICD-10; Not Available [facility] 3 05:53:49 Chronic ulcer of foot 052442120 Completed 201601/16/2017 12/18/19 17 - Comments only - Ana Wade MD - Due to injury. This does appear to have some granulat ion tissue and to be healing. She is given a prescrip tion for Keflex to take only if erythema seems to be extendin g. Problem Code: L97.509; Problem Code Type: ICD-10; Not Available [facility] 3 05:53:49 Diarrhea 74543644 Completed 201602/10/2017 02/05/20 17 - Comments only - Ana Wade MD - Persiste nt over several months, we will collect stool for C. 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 6 mm PT1NO E2P2 poistive , HER2 negative ANA WADE MD [address], [place], [address] , [facility] 4 20:38:49 Pain in left lower limb 797821937 Active 2016 EVIE shaw [facility]. 4 10:32:00 Pain in thoracic spine 979609498 Active 2016 EVIE shaw [facility], [facility]. 4 10:32:06 Spasm 14516196 Active 2017 EVIE shaw [facility]. 4 10:33:28 Abdomina l distensi on, gaseous 315489157 Completed 201703/08/2018 Problem Code: R14.0; Problem Code Type: ICD-10; Not Available [facility] 3 05:53:50 Cellulit is of toe 10714260 Completed 201808/12/2018 Problem Code: L03.039; Problem Code Type: ICD-10; Not Available [facility] 3 05:53:51 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 2018 Danica [facility], [facility] 4 14:36:02 Tachycar lea 6326179 Completed 201811/25/2018 Problem Code: R00.0; Problem Code Type: ICD-10; Not Available [facility] 3 05:53:51 Pre-surg ruben evaluati on Completed 201811/25/2018 Problem Code: Z01.818; Problem Code Type: ICD-10; Not Available [facility] 3 05:53:51 Iron deficien cy anemia 75201461 Active 2019 elevated MCV: normal B12 2021, normal folate 2018 IV iron 2023 EGD 01/2022 paraesop hageal hernia (since repaired ) colo 03/2017 normal ANA WADE MD [address], [place], [address] , [facility] [employer] [facility] 4 11:44:45 Lumbago with sciatica 894655193 Completed 201903/16/2020 02/24/20 20 - Comments only - Vy Araujocarol Pinon [employer] - Likely aggravat ed by increase d [...] M54.40; Problem Code Type: ICD-10; Not Available [facility] 3 05:53:52 Right side sciatica 36116904249 9101 Active 2019 EVIE shaw, [facility] 4 10:33:09 Left side sciatica 98046347277 9104 Active [address], [place] [address] , [facility] 4 17:20:20 Diaphrag matic hernia 08190743 Completed 202108/11/2023 Removal Reason: s/p repair MD [address], [place] [address] , [facility] 4 20:50:39 History of SARS-CoV -2 54032207168 1311455 Completed 202104/04/2022 03/21/20 22 - Comments only - Ana Wade MD - testing is negative today in the office. Still some fatigue but otherwis e recoveri ng. Did get MAB. Already had covid bivalent booster prior to illness Problem Code: Z86.16; Problem Code Type: ICD-10; Not Available [facility] 3 05:53:53 Diarrhea 08658395 Completed 202104/18/2022 Problem Code: R19.7; Problem Code Type: ICD-10; MD [address], [facility] [address] , [facility] 4 21:03:02 Radhain g mammogreduardo phy Completed 202208/11/[address], [facility] [address] , [facility] 4 20:36:56 Carpal tunnel syndrome of left wrist 21863285649 9102 Completed 202201/23/2023 Problem Code: G56.02; Problem Code Type: ICD-10; Not Available [facility] 4 05:37:46 Diarrhea 59338758 Active 2022 started colestip ol 01/[address], [place], [address] , [facility] 4 21:03:02 Carpal tunnel syndrome of right wrist 50819179817 9108 Completed 201803/19/2020 Problem Code: G56.01; Problem Code Type: ICD-10; Not Available [facility] 3 05:53:55 Pain of left knee joint 41671963987 4107 Completed 202107/30/2022 Problem Code: M25.562; Problem Code Type: ICD-10; Not Available [facility] 3 05:53:55 Hypersom korina 31277395 Completed 201311/27/2014 Problem Code: 780.54; Problem Code Type: ICD-9; Not Available [facility] 3 05:53:56 Screenin g for disorder Completed 201909/11/2021 Problem Code: Z13.9; Problem Code Type: ICD-10; Not Available [facility] 3 05:53:56 Anemia 649018833 Completed 201903/19/2020 Problem Code: D64.9; Problem Code Type: ICD-10; Not Available [facility] 3 05:53:56 Long-ter m current use of anticoag ulant 020911812 Completed 201709/01/2018 Problem Code: Z79.01; Problem Code Type: ICD-10; Not Available [facility] 3 05:53:57 Chronic rhinitis 75535793 Completed 202108/12/2021 Problem Code: J31.0; Problem Code Type: ICD-10; Not Available [facility] 3 05:53:57 Impaired fasting glycemia 603043513 Completed 201401/28/2023 Not Available [facility] 3 05:53:57 Fatigue 56135201 Completed 201903/19/2020 Problem Code: R53.83; Problem Code Type: ICD-10; Not Available [facility] 3 05:53:58 Upper respirat ory tract infectio n caused by Influenz a A 75431626446 9104 Completed 201707/02/2017 Problem Code: J09.x2; Problem Code Type: ICD-10; Not Available [facility] 3 05:53:59 Diarrhea 23024966 Completed 201709/01/2018 ANA WADE MD [address], [place], [address] [facility] 4 21:03:02 Acute upper respirat ory infectio n 22803481 Completed 202108/26/2021 Problem Code: J06.9; Problem Code Type: ICD-10; Not Available [facility] 3 05:53:59 Pain in right foot 69703930467 9107 Completed 202207/30/2022 Problem Code: M79.671; Problem Code Type: ICD-10; Not Available [facility] 3 05:54:00 Breast composit ion 677607247 Completed 201601/28/2023 Not Available [facility] 3 05:54:00 Changes in skin texture 788670773 Completed 202207/30/2022 Problem Code: R23.4; Problem Code Type: ICD-10; Not Available [facility] 3 05:54:01 Spasm 83738719 Completed 201603/23/2017 Problem Code: R25.2; Problem Code Type: ICD-10; EVIE shaw [facility] 4 10:33:28 Hyperten sive disorder 40589153 Completed 11/28/19 15 - Comments only - Ana Wade MD - [facility] ed, no change in medicati ons Not Available [facility] 3 05:54:03 Arthralg ia of the ankle and/or foot 900502654 Completed 201501/30/2016 Problem Code: M25.571; Problem Code Type: ICD-10; Not Available [facility] 3 05:54:03 Dyspnea 148724872 Completed 201903/19/2020 Problem Code: R06.02; Problem Code Type: ICD-10; [facility] 4 14:39:47 Trigger finger of right hand 84457980913 096016 Completed 201803/19/2020 Problem Code: M65.341; Problem Code Type: ICD-10; Not Available [facility] 3 05:54:06 Cough 58051145 Completed 202108/12/2021 Problem Code: R05.1; Problem Code Type: ICD-10; Not Available [facility] 3 05:54:06 At risk - finding 925875340 Completed 201811/11/2018 Problem Code: Z91.89; Problem Code Type: ICD-10; Not Available [facility] 3 05:54:06 Cough 25819513 Completed 201706/15/2017 Problem Code: R05; Problem Code Type: ICD-10; Not Available [facility] 3 05:54:07 Preopera tive cardiova scular examinat ion Completed 202112/18/2021 Problem Code: Z01.810; Problem Code Type: ICD-10; Not Available [facility] 3 05:54:08 Arterial bruit 70517682 Completed 202109/11/2021 Not Available [facility] 3 05:54:08 Gastroes ophageal reflux disease 650424569 Completed Not Available [facility] 3 05:54:09 Imaging of musculos keletal system abnormal 768803643 Completed 201603/23/2017 Problem Code: R93.7; Problem Code Type: ICD-10; Not Available [facility] 3 05:54:10 Blood glucose outside referenc e range 560196986 Completed 201503/20/2016 Problem Code: R73.09; Problem Code Type: ICD-10; Not Available [facility] 3 05:54:10 Abdomina l aortic aneurysm 138574188 Completed 195912/04/2014 Not Available [facility] 3 05:54:11 Lung field abnormal 487863610 Completed 202109/11/2021 Problem Code: R91.8; Problem Code Type: ICD-10; Not Available [facility] 3 05:54:11 Ingrowin g nail 272095527 Completed 201503/23/2017 Problem Code: L60.0; Problem Code Type: ICD-10; Not Available [facility] 3 05:54:11 Hypokale karyn 70127957 Completed 201504/17/2016 Problem Code: E87.6; Problem Code Type: ICD-10; Not Available [facility] 3 05:54:12 Spasm 96457798 Completed 202201/23/2023 Problem Code: M62.838; Problem Code Type: ICD-10; EVIE shaw, [facility]. 4 10:33:28 Aneurysm of ascendin g aorta 371416244 Active [address], [place], [address] , [facility]. 4 19:24:51 Bicuspid aortic valve 39448349 Active 2023 severe by ECHO 07/[address], [place], [address] , [facility]. 4 19:33:10 Osteopen ia 186349285 Active 2023 EVIE shaw [facility]. 4 10:28:13 Venous stasis 09005333 Active 2023 EVIE shaw [facility]. 4 10:29:14 Chronic kidney disease 025839929 Active 2017 Stage 3bA1v eGFR 42-[address], [place], [place], [address] [place] [address] , [facility] 4 20:49:29 Dyspnea on exertion 21772612 Active 2018 Danica Felix colin, [facility] 4 14:39:44 Hiatal hernia 82907641 Completed 202108/11/2023 lap repair MD [address], [place] [address] , [facility] 4 20:51:15 Edema of lower extremit y 332010573 Active [address], [place] [address] , [facility] 4 20:55:49 Atrial fibrilla tion 18622322 Active 2016 s/p pulmonoa ry vein isolatio n 05/2018, chronic anticoag ulation with Xarelto MD [address], [place], [place], [address] [place] [address] , [facility] 4 09:14:08 Obesity 235354379 Active [address], [place], [place], [address] [place] [address] , [facility] 4 09:26:22 Cardiac pacemake r in situ 109579217 Active 2023 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 MD [address], [place] [address] , [facility] 4 09:13:49 Swelling of bilatera l lower limbs 449697236 Active [address], [place] [address] , [facility] 14:35:13 Problem Notes None recorded. Procedures Surgical History Date Name Laterality Status Provider Name and Address Organization Details Recorded Time 10/26/19 cardiac pacemaker procedure completed MD [address], [place], [address], [facility] 03/16/2024 16:33:27 10/20/19 transcatheter aortic valve implantation completed MD [address], [place], [address], [facility] 03/16/2024 16:32:53 Imaging Results None recorded. Procedure Notes None recorded. Medical Equipment None Reported. Allergies Allergen ID Allergen Name Allergen Category Reaction Reaction Severity Criticality Documentation Date Start Date Code Code System Note Provider Name and Address Organization Details Recorded Time 93338 amlodipin e medicatio n swelling severe high 11/18/2023 14787 RxNorm HIRA Hodge, [facility] 13:47:28 Medications Name [...] 1 tab by mouth daily 06/02 completed [facility] re Not Available Not Available Not Available [...] 1 tablet every day by oral route. 2024 active dose lowered from 100 mcg Not Available Not Available Not Available levothyro [...] Status Never Smoker KRYSTAL SKELTON LPN [facility], [place] - [facility]. 08/12/2023 07:44:55 Date Of Most Recent [...] And Wanted Help? (For Example, If You Shock Very Nervous, Lonely, Or Blue; Got Sick [...] 04:00:48 Mother Family history of heart failure [email or web address] Not available 2022 04:00:48 Notes:*Problem: Mother: Dece [...] Details Recorded Time Pneumococcal conjugate PCV20, polysaccharide HNE222 conjugate, adjuvant, PF 4 completed MD [address], [address] 08/12/2023 11:52:18 COVID-19, mRNA, LNP-S, PF, vanda-sucrose, 30 mcg/0.3 mL 4 completed MD [address], [address] 08/12/2023 11:52:18 COVID-19, mRNA, LNP-S, PF, vanda-sucrose, 30 mcg/0.3 mL 4 completed MD [address], [address] 03/04/2024 15:04:49 Tdap 1 completed Not Available [facility] 03/13/2023 06:18:37 Tdap 1 completed Not Available [facility] 03/13/2023 06:18:37 zoster live 5 completed Not Available [facility] 03/13/2023 06:18:37 Influenza, high-dose, trivalent, PF 8 completed Not Available [facility] 03/13/2023 06:18:38 Influenza, split virus, trivalent, preservative 6 completed Not Available [facility] 03/13/2023 06:18:38 Pneumococcal Conjugate, unspecified formulation 5 completed Not Available [facility] 03/13/2023 06:18:38 Influenza, split virus, quadrivalent, preservative 7 completed Not Available [facility] 03/13/2023 06:18:38 Influenza, high-dose, quadrivalent, PF 2 completed Not Available [facility] 03/13/2023 06:18:38 Influenza, high-dose, quadrivalent, PF 1 completed Not Available [facility] 03/13/2023 06:18:38 Influenza, high-dose, quadrivalent, PF 0 completed Not Available [facility] 03/13/2023 06:18:38 COVID-19, mRNA, LNP-S, PF, 100 mcg/0.5mL dose or 50 mcg/0.25mL dose 1 completed Not Available [facility] 03/13/2023 06:18:38 COVID-19, mRNA, LNP-S, PF, 100 mcg/0.5mL dose or 50 mcg/0.25mL dose 1 completed Not Available [facility] 03/13/2023 06:18:39 COVID-19, mRNA, LNP-S, PF, 100 mcg/0.5mL dose or 50 mcg/0.25mL dose 1 completed Not Available [facility] 03/13/2023 06:18:39 COVID-19, mRNA, LNP-S, bivalent, PF, 30 mcg/0.3 mL dose 2 completed Not Available [facility] 03/13/2023 06:18:39 pneumococcal polysaccharide PPV23 1 completed Not Available [facility] 03/13/2023 06:18:39 influenza, unspecified formulation 6 completed Not Available [facility] 03/13/2023 06:18:39 influenza, unspecified formulation 4 completed Not Available [facility] 03/13/2023 06:18:39 Influenza, high-dose, quadrivalent, PF 3 completed Not Available [facility] 05/15/2023 05:33:16 Past Encounters Encounter ID Performer Location Encounter Start Date Encounter Closed Date Diagnosis/Indication Diagnosis SNOMED-CT Code Diagnosis ICD10 Code Diagnosis Note [id number] Samantha Razo RN [facility] [address] [place] [facility] [place] [address] 04/18/2024 10:14:04 04/18/2024 10:46:21 Osteoporotic fracture 86938822 M80.00XD Hypothyroidism 25486872 E03.9 Iron defic iency anemia 74601755 D50.9 Chronic ki dney disease 566576384 N18.9 Prediabetes 290204335 R7 3.03 Health Concerns Section Related Observation LastModified by Organization Detai ls LastModified Time None Recorded Concern Status LastModified by Organization Details LastModified Time None Recorded Payers Encounter Date Sequence Insurance Name Policy Number Policy Palacio Covered Member ID Palacio Member ID Guarantor Name 04/18/2024 1 [place] [employer] Digna Olson [id number] Digna Olson 04/18/2024 2 [place] [facility] [id number] Digna Olson [id number] Digna Olson OBGyn Episode No OBEpisode recorded.
--- OUTSIDE RECORDS SUMMARY | 2024-06-03 10:38 | XMS_ITS | Continuity of Care Document ---
Author Organization [place] - [facility], [facility] Address Geovany Yeung [place] [address] Care Team Providers Care Metal Window Frame Maker Name Role Phone [employer] Teacher [facility] Orthopedic Surgeon [facility] Sleep Medicine [facility] Electronics Research Engineer Assessment Encounter Date Assessment Date Assessment LastModified by Organization Details LastModified Time 05/23/2024 05/23/2024 The total time devoted to today's encounter, including both the tsri-jt-mtyo time with the patient and/or family/caregi josefina and ups-dscp-gk-f patrick time I personally spent is 42 [...] rehab and was negative. [address] [facility], [address], [place], [address], 09:45:21 Procedures None recorded. Surgeries None recorded. Imaging None recorded. Medication Orders colestipol 1 gram tablet 2024 [facility], [address] [place] [address], [facility], [place], [address], 14:26:17 carvedilol 25 mg tablet 2024 [facility], [address] [place] [address], [facility], [place], [address], 14:26:15 Patient TargetsNo targets recorded. Patient InstructionsNo instructions recorded. 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 Referral for Chronic diarrhea You saw Alma [...] humeral fracture 2023- MD [address], [place], [address] , [facility] 4 17:34:10 Hypothyr oidism 79694969 Active 1959 EVIE shaw, [facility] 4 10:29:59 Essentia l hyperten jason 01116331 Active 1959 EVIE shaw, [facility] 4 10:29:36 Hyperlip idemia 93287252 Active 1959 on statin MD [address], [place], [address] , [facility] 4 20:35:18 Spinal stenosis of lumbar region 60737177 Active 2012 s/p lumbar foramino parish L4 MD [address], [place], [address] , [facility] 4 20:36:41 Sleep apnea 15761471 Active 2012 on CPAP MD [address], [place], [address] , [facility] 4 20:39:31 Gastroes ophageal reflux disease without esophagi tis 474449891 Completed 195908/12/2023 Removal Reason: resolved with surgical repair of HH MD [address], [place], [address] , [facility] 4 10:41:24 Family history of malignan t neoplasm of digestiv e organ 234032328 Active [address], [place], [address] , [facility] 4 20:37:03 Paresthe samir 05917895 Completed 201412/01/2014 11/28/19 15 - Comments only - Ana Her MD - check B12 and folate Problem Code: R20.2; Problem Code Type: ICD-10; Not Available [facility] 3 05:53:48 Adult health examinat ion Active [address], [place], [address] , [facility] 4 20:33:34 Pre-surg ruben evaluati [...] Z01.818; Problem Code Type: ICD-10; Not Available [facility] 3 05:53:48 Localize d edema 597996443 Completed 201501/29/2016 12/13/19 16 - Comments only - Ana Her MD - and some on left as well, will check BMP. 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 Nusrat holt for removal. Problem Code: L72.3; Problem Code Type: ICD-10; Not Available [facility] 3 05:53:49 Chronic ulcer of foot 578607375 Completed 201601/16/2017 12/18/19 17 - Comments only - Ana Her MD - Due to injury. This does appear to have some granulat ion tissue and to be healing. She is given a prescrip tion for Keflex to take only if erythema seems to be extendin g. Problem Code: L97.509; Problem Code Type: ICD-10; Not Available [facility] 3 05:53:49 Diarrhea 41659016 Completed 201602/10/2017 02/05/20 17 - Comments only - Ana Her MD - Persiste nt over several months, we will collect stool for C. 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 6 mm PT1NO E2P2 poistive , HER2 negative MD [address], [place], [address] , [facility] 4 20:38:49 Pain in left lower limb 635166936 [facility] 10:32:00 Pain in thoracic spine 675311250 [facility] 4 10:32:06 Spasm 78707770 Active 2017 [facility] 4 10:33:28 Abdomina l distensi on, gaseous 494201312 Completed 201703/08/2018 Problem Code: R14.0; Problem Code Type: ICD-10; Not Available [facility] 3 05:53:50 Cellulit is of toe 18300473 Completed 201808/12/2018 Problem Code: L03.039; Problem Code Type: ICD-10; Not Available [facility] 3 05:53:51 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 2018 [facility] 4 14:36:02 Tachycar lea 3942122 Completed 201811/25/2018 Problem Code: R00.0; Problem Code Type: ICD-10; Not Available [facility] 3 05:53:51 Pre-surg ruben evaluati on Completed 201811/25/2018 Problem Code: Z01.818; Problem Code Type: ICD-10; Not Available [facility] 3 05:53:51 Iron deficien cy anemia 25719293 Active 2019 elevated MCV: normal B12 2021, normal folate 2018 IV iron 2023 EGD 01/2022 paraesop hageal hernia (since repaired ) colo 03/[address] MD [address], [place], [address] , [facility], [facility]. 4 11:44:45 Lumbago with sciatica 797480214 Completed 201903/16/2020 02/24/20 20 - Comments only - Vy Pinon HOOP RIVETER - Likely aggravat ed by increase d [...] M54.40; Problem Code Type: ICD-10; Not Available [facility] 3 05:53:52 Right side sciatica 10873378878 9101 Active 2019 EVIE HOOPER [facility] 4 10:33:09 Left side sciatica 41235548741 9104 Active [address], [place], [address] , [facility] 4 17:20:20 Diaphrag matic hernia 33034757 Completed 202108/11/2023 Removal Reason: s/p repair MD [address], [place], [address] , [facility] 4 20:50:39 History of SARS-CoV -2 68614858990 9243164 Completed 202104/04/2022 03/21/20 22 - Comments only - Ana Her MD - testing is negative today in the office. Still some fatigue but otherwis e recoveri ng. Did get MAB. Already had covid bivalent booster prior to illness Problem Code: Z86.16; Problem Code Type: ICD-10; Not Available [facility] 3 05:53:53 Diarrhea 34136494 Completed 202104/18/2022 Problem Code: R19.7; Problem Code Type: ICD-10; MD [address], [facility] [address] , [facility] 4 21:03:02 Screenin g mammogra phy Completed 202208/11/[address], [address] , [facility] 4 20:36:56 Carpal tunnel syndrome of left wrist 35031188921 9102 Completed 202201/23/2023 Problem Code: G56.02; Problem Code Type: ICD-10; Not Available [facility] 4 05:37:46 Diarrhea 15967346 Active 2022 started colestip ol 01/[address], [facility] [address] , [facility] 4 21:03:02 Carpal tunnel syndrome of right wrist 51954739139 9108 Completed 201803/19/2020 Problem Code: G56.01; Problem Code Type: ICD-10; Not Available [facility] 3 05:53:55 Pain of left knee joint 49848378427 4107 Completed 202107/30/2022 Problem Code: M25.562; Problem Code Type: ICD-10; Not Available [facility] 3 05:53:55 Hypersom korina 06513941 Completed 201311/27/2014 Problem Code: 780.54; Problem Code Type: ICD-9; Not Available [facility] 3 05:53:56 Screenin g for disorder Completed 201909/11/2021 Problem Code: Z13.9; Problem Code Type: ICD-10; Not Available [facility] 3 05:53:56 Anemia 806629557 Completed 201903/19/2020 Problem Code: D64.9; Problem Code Type: ICD-10; Not Available [facility] 3 05:53:56 Long-ter m current use of anticoag ulant 121532646 Completed 201709/01/2018 Problem Code: Z79.01; Problem Code Type: ICD-10; Not Available [facility] 3 05:53:57 Chronic rhinitis 75031498 Completed 202108/12/2021 Problem Code: J31.0; Problem Code Type: ICD-10; Not Available [facility] 3 05:53:57 Impaired fasting glycemia 469265883 Completed 201401/28/2023 Not Available [facility] 3 05:53:57 Fatigue 64343843 Completed 201903/19/2020 Problem Code: R53.83; Problem Code Type: ICD-10; Not Available [facility] 3 05:53:58 Upper respirat ory tract infectio n caused by Influenz a A 88682582205 9104 Completed 201707/02/2017 Problem Code: J09.x2; Problem Code Type: ICD-10; Not Available [facility] 3 05:53:59 Diarrhea 71174938 Completed 201709/01/2018 ANA HER MD [facility] [address], [place], [address] , [facility]. 4 21:03:02 Acute upper respirat ory infectio n 68903336 Completed 202108/26/2021 Problem Code: J06.9; Problem Code Type: ICD-10; Not Available [facility] 3 05:53:59 Pain in right foot 60774209023 9107 Completed 202207/30/2022 Problem Code: M79.671; Problem Code Type: ICD-10; Not Available [facility] 3 05:54:00 Breast composit ion 242124603 Completed 201601/28/2023 Not Available [facility] 3 05:54:00 Changes in skin texture 160997600 Completed 202207/30/2022 Problem Code: R23.4; Problem Code Type: ICD-10; Not Available [facility] 3 05:54:01 Spasm 52470756 Completed 201603/23/2017 Problem Code: R25.2; Problem Code Type: ICD-10; EVIE RUFUS shaw, [facility] 4 10:33:28 Hyperten sive disorder 58408818 Completed 11/28/19 15 - Comments only - Ana Her MD - [facility] ed, no change in medicati ons Not Available [facility] 3 05:54:03 Arthralg ia of the ankle and/or foot 839622483 Completed 201501/30/2016 Problem Code: M25.571; Problem Code Type: ICD-10; Not Available [facility] 3 05:54:03 Dyspnea 602095638 Completed 201903/19/2020 Problem Code: R06.02; Problem Code Type: ICD-10; Danica Sechadwick shaw, [facility] 4 14:39:47 Trigger finger of right hand 76760412843 104191 Completed 201803/19/2020 Problem Code: M65.341; Problem Code Type: ICD-10; Not Available [facility] 3 05:54:06 Cough 48846632 Completed 202108/12/2021 Problem Code: R05.1; Problem Code Type: ICD-10; Not Available [facility] 3 05:54:06 At risk - finding 154715802 Completed 201811/11/2018 Problem Code: Z91.89; Problem Code Type: ICD-10; Not Available [facility] 3 05:54:06 Cough 88500406 Completed 201706/15/2017 Problem Code: R05; Problem Code Type: ICD-10; Not Available [facility] 3 05:54:07 Preopera tive cardiova scular examinat ion Completed 202112/18/2021 Problem Code: Z01.810; Problem Code Type: ICD-10; Not Available [facility] 3 05:54:08 Arterial bruit 46392975 Completed 202109/11/2021 Not Available [facility] 3 05:54:08 Gastroes ophageal reflux disease 836202627 Completed Not Available [facility] 3 05:54:09 Imaging of musculos keletal system abnormal 555367970 Completed 201603/23/2017 Problem Code: R93.7; Problem Code Type: ICD-10; Not Available [facility] 3 05:54:10 Blood glucose outside referenc e range 173116973 Completed 201503/20/2016 Problem Code: R73.09; Problem Code Type: ICD-10; Not Available [facility] 3 05:54:10 Abdomina l aortic aneurysm 864458237 Completed 195912/04/2014 Not Available [facility] 3 05:54:11 Lung field abnormal 808379635 Completed 202109/11/2021 Problem Code: R91.8; Problem Code Type: ICD-10; Not Available [facility] 3 05:54:11 Ingrowin g nail 232634831 Completed 201503/23/2017 Problem Code: L60.0; Problem Code Type: ICD-10; Not Available [facility] 3 05:54:11 Hypokale karyn 68814085 Completed 201504/17/2016 Problem Code: E87.6; Problem Code Type: ICD-10; Not Available [facility] 3 05:54:12 Spasm 20411298 Completed 202201/23/2023 Problem Code: M62.838; Problem Code Type: ICD-10; EVIE shaw [facility] 4 10:33:28 Aneurysm of ascendin g aorta 680352378 Active [address], [place], [address] , [facility] 4 19:24:51 Bicuspid aortic valve 68243861 Active 2023 severe by ECHO 07/[address], [place], [address] , [facility] 4 19:33:10 Osteopen ia 540304752 Active 2023 EVIE shaw, [facility] 4 10:28:13 Venous stasis 35090692 Active 2023 EVIE shaw, [facility] 4 10:29:14 Chronic kidney disease 839128224 Active 2017 Stage 3bA1v eGFR 42-[address], [place], [address] , [facility] 4 20:49:29 Dyspnea on exertion 43658242 Active 2018 Danica chadwick shaw, [facility] 4 14:39:44 Hiatal hernia 45175359 Completed 202108/11/2023 lap repair MD [address], [place], [address] , [facility] 4 20:51:15 Edema of lower extremit y 132181502 Active [address], [place], [address] , [facility] 4 20:55:49 Atrial fibrilla tion 34689708 Active 2016 s/p pulmonoa ry vein isolatio n 05/2018, chronic anticoag ulation with Xarelto MD [address], [place], [address] , [facility] 4 09:14:08 Obesity 212438169 Active [address], [address] 4 09:26:22 Cardiac pacemake r in situ 557340381 Active 2023 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 MD [address], [address] 4 09:13:49 Swelling of bilatera l lower limbs 017091850 Active [address], [address] 14:35:13 Problem Notes None recorded. Procedures Surgical History Date Name Laterality Status Provider Name and Address Organization Details Recorded Time 10/26/19 cardiac pacemaker procedure completed MD [address], [address] 03/16/2024 16:33:27 10/20/19 transcatheter aortic valve implantation completed MD [address], [address] 03/16/2024 16:32:53 Imaging Results None recorded. Procedure Notes None recorded. Medical Equipment None Reported. Allergies Allergen ID Allergen Name Allergen Category Reaction Reaction Severity Criticality Documentation Date Start Date Code Code System Note Provider Name and Address Organization Details Recorded Time 83490 amlodipin e medicatio n swelling severe high 11/18/2023 22040 RxNorm Shaneka Herrera MA null, [facility] 13:47:28 Medications Name Sig [...] 1 tab by mouth daily 06/02 completed [facility] Not Available Not Available Not [...] 1 tab by mouth daily 2013 active [facility] Not Available Not Available Not Available gabapenti n 100 mg capsule Take 1 cap by mouth three times daily 2015 active Not Available Not Available Not Avai lable metoprolo l succinate ER 25 mg tablet,ex tended release 24 hr Take 1 tab by mouth daily 2017 active [facility] Not Available Not Available Not [...] tablet twice a day by oral route. 10/18 /2024 completed 150 mg elementa l Not Available [...] Not Available Vitals Date Recorded Body height Provider Name an d Address Organization Details Last Updated DateTime 05/23/2024 164.34 cm [facility] 05/23/2024 13:47:21 Date Recorded Body mass index (BMI) Body weight Provider Name and Address Organization Details Last Updated DateTime 05/23/2024 28.7 kg/m2 80335.3 g KRYSTAL SKELTON [facility] 05/23/2024 13:47:36 Date Recorded Body temperature Provider Name a nd Address Organization Details Last Updated DateTime 05/23/2024 97 [degF] KRYSTAL SKELTON [facility] 05/23/2024 13:47:44 Date Recorded Heart rate Provider Name an d Address Organization Details Last Updated DateTime 05/23/2024 82 /min [facility] 05/23/2024 13:48:55 Date Recorded Respiratory rate Provider Name a nd Address Organization Details Last Updated DateTime 05/23/2024 18 /min KRYSTAL SKELTON [employer] [facility] 05/23/2024 13:49:01 Date Recorded Systolic blood pressure Diastolic blood pressure Provider Name and Address Organization Details Last Updated DateTime 05/23/2024 128 mm[Hg] 72 mm[Hg] KRYSTAL SKELTON LPN [facility] 05/23/2024 13:47:58 Social History Question Answer Notes LastModified by Organizat ion Details LastModified Time Tobacco Smoking Status Never Smoker KRYSTAL SKELTON LPN [facility], [facility] 08/12/2023 07:44:55 Date Of [...] And Wanted Help? (For Example, If You [place] Very Nervous, Lonely, Or Blue; Got Sick [...] Details Recorded Time Pneumococcal conjugate PCV20, polysaccharide IOM046 conjugate, adjuvant, PF 4 completed [address], [facility] [id number] [place] [address] 08/12/2023 11:52:18 COVID-19, mRNA, LNP-S, PF, vanda-sucrose, 30 mcg/0.3 mL 4 completed MD [address], [facility] [address] [place] [address] 08/12/2023 11:52:18 COVID-19, mRNA, LNP-S, PF, vanda-sucrose, 30 mcg/0.3 mL 4 completed MD [address], [facility] [address], [facility] 03/04/2024 15:04:49 Tdap 07/05/201 1 completed Not Available [facility] 03/13/2023 06:18:37 Tdap 1 completed Not Available [facility] 03/13/2023 06:18:37 zoster live 5 completed Not Available [facility] 03/13/2023 06:18:37 Influenza, high-dose, trivalent, PF 8 completed Not Available [facility] 03/13/2023 06:18:38 Influenza, split virus, trivalent, preservative 6 completed Not Available [facility] 03/13/2023 06:18:38 Pneumococcal Conjugate, unspecified formulation 5 completed Not Available [facility] 03/13/2023 06:18:38 Influenza, split virus, quadrivalent, preservative 7 completed Not Available [facility] 03/13/2023 06:18:38 Influenza, high-dose, quadrivalent, PF 2 completed Not Available [facility] 03/13/2023 06:18:38 Influenza, high-dose, quadrivalent, PF 1 completed Not Available [facility] 03/13/2023 06:18:38 Influenza, high-dose, quadrivalent, PF 0 completed Not Available [facility] 03/13/2023 06:18:38 COVID-19, mRNA, LNP-S, PF, 100 mcg/0.5mL dose or 50 mcg/0.25mL dose 1 completed Not Available [facility] 03/13/2023 06:18:38 COVID-19, mRNA, LNP-S, PF, 100 mcg/0.5mL dose or 50 mcg/0.25mL dose 1 completed Not Available [facility] 03/13/2023 06:18:39 COVID-19, mRNA, LNP-S, PF, 100 mcg/0.5mL dose or 50 mcg/0.25mL dose 1 completed Not Available [facility] 03/13/2023 06:18:39 COVID-19, mRNA, LNP-S, bivalent, PF, 30 mcg/0.3 mL dose 2 completed [facility] Available [facility] 03/13/2023 06:18:39 pneumococcal polysaccharide PPV23 1 completed Not Available [facility] 03/13/2023 06:18:39 influenza, unspecified formulation 6 completed Not Available [facility] 03/13/2023 06:18:39 influenza, unspecified formulation 4 completed Not Available [facility] 03/13/2023 06:18:39 Influenza, high-dose, quadrivalent, PF 3 completed Not Available [facility] 05/15/2023 05:33:16 Past Encounters Encounter ID Performer Location Encounter Start Date Encounter Closed Date Diagnosis/Indication Diagnosis SNOMED-CT Code Diagnosis ICD10 Code Diagnosis Note [id number] ANA HER MD [facility] [address] [place] [address] 05/23/2024 13:45:51 05/23/2024 14:12:00 Chronic diarrhea 250267542 K52.9 titrate up the colestipol . Referral back to GI to discuss colonoscop y Atrial fibrillation 4943 6004 I48.91 She has possible ablation scheduled and follow up with EP, will request her recent cardiovers ion admission records. Diarrhea 63797636 R19.7 Essential hypertension 71828446 I10 well controlled , no change in medication s. Hypothyroidism 58521122 E03.9 recent TSH now in range. Slightly high, but given afib and weight loss, no reason to titrate dose. Iron defic iency anemia 72958569 D50.9 s/p IV iron during her last rehab stay, both H/H and iron stores have improved. Weight loss 69549360 R63 .4 most likely due to avoiding [...] ID Guarantor Name 05/23/2024 1 [place]: [employer] Digna Olson [id number] Digna Olson 05/23/2024 2 [place] [facility] [id number] Digna Olson [id number] Digna Olson Notes Date Note Type Note Provider Name and Address Organization Details Recorded Time 05/23/2024 text/html Here for follow up of multiple problems as noted below:Labs reviewed. Atrial fibrillation-she underwent another cardioversion on May 05. Apparently has an appointment for an ablation in mid June, and to follow-up with the acute specialist in [place] in July. She has been going to [...] virtual pacer checks other than visits in [place] s/p TAVR-she is sleeping in bed with [...] No longer taking oral iron. Had seen [facility] about colonoscopy due to diarrhea, but appears that was postponed due to her aortic stenosis/TAVR... repeat CBC and iron studies were reassuring, all improved. prediabetes- A1C was back in the normal range at 5.4% ANA HER MD [address], [place], [address], [facility]. 05/23/2024 15:51:12 OBGyn Episode No OBEpisode recorded.
--- OUTSIDE RECORDS SUMMARY | 2024-06-03 10:38 | XMS_ITS | Encounter Summary ---
Author Organization [facility] [place] [address] Care Team Providers Care Lookback Coordinator Name Role Phone Ana Her MD Primary Care Provider [phone] Encounter Details Date Type Department Care Team (Late st Contact Info) Description 03/09/2022 Telephone [place] [address] [facility] [place] [address] Social History Tobacco Use Types Packs/Day Years [...] the mobile number listed in her chart ([phone]). Her other daughter answered the phone and reported that she had just dropped her off in the Emergency Department at [facility] and parked the car. She [...] on filedocumented in this encounter Care Teams Lookback Coordinator Relationship Specialty Start Date End Date Ana Her MD Geovany [address] [place] [address] PCP - General 07/29/13 documented as of this encounter
--- OUTSIDE RECORDS SUMMARY | 2024-06-03 10:38 | XMS_ITS ---
Author Organization [facility] Address [address] [place], [place] [id number] Care Team Providers Care Wireline Supervisor Name Role Phone RANDA MORATAYA Primary Care Provider VIKTOR Plaza Unavailable [phone] Allergies No Known Allergies REASON FOR VISIT [...] W/U Status Risk Notes Problem Ingrowing nail (495453786) Ingrowing nail (L60.0) Active confirmed Problem Pain in limb (80275355) Pain in right toe(s) (M79.674) Active confirmed Problem Nail dystrophy (04665803) Nail dystrophy (L60.3) Active confirmed Vital Signs Weight 170 lbs 02/16/2024 Height 5ft 4in in 02/16/2024 BMI 29.18 02/16/2024 Encounters Encounter Location Date Provider Diagnosis [facility] [address] [facility] [address] [place], [place] [id number] 02/16/2024 VIKTOR SANCHEZ Ingrowing nail L60.0 ; [...] Notes * KODY KIMBROUGHDOB:1945 (78 yo F)Acc No.[id number]:02/16/2024 New Patient Notes Patient:?KODY KIMBROUGH Provider:?Gloria Sanchez D.P.M., Tangela Gonzalez :1945???Age:78 Y???Sex:Female D ate:02/16/2024 Address:[address] [place], [place] [id number] Pcp:RANDA MORATAYA Subjective: * Chief Complaints: * [...] Electronic signature of NUVIA SANCHEZ DPM on 06/03/2024 at 10:32 AM EST Sign off status: Pending * Provider:?Gloria Sanchez D.P.M., Osvaldo.VasquezAMiladS. Date:?02/16/2024 Generated for Rayshawn salazar/Kailyn/eTransmitting on:?06/03/2024 10:32 AM EST History and Physical Notes * [...]
--- OUTSIDE RECORDS SUMMARY | 2024-06-03 10:38 | XMS_ITS | Clinical Summary ---
Author Organization [facility] [address] Care Team Providers Care Atomic Fuel Assembler Name Role Phone Ana Her MD Primary Care Provider [phone] Allergies No known active allergies Medications Medication [...] the eliquis and has been managed by [facility]. She has remained in [place] over [...] and ECG with Dr. Ana Her in [place] in January She will discuss ECHO results [...] - TT3 and FT4 nl - My LABOR GANG SUPERVISOR colleague called and spoke with covering [...] exists Medical Devices Implanted Type Area Senior Office Support Assistant Sosa Device Identifier Shelf Expiration Date Model / Serial / Lot Breast Clip-02/26/20 17 Implanted: by Enzo Burkett MD (Quantity not on file) Breast Clip Left: Breast Bard - 0614 05/04/2019 [employer]OMARK ULTRACOR BREAST TISSUE MARKER ULTRASOUND ENHANCED BLANCA / / [id number] Description:BLANCA Procedures Procedure Name Priority Date/Time Associated [...] of neck of femur, unspecified laterality 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 ? Jeanine Lobato BUFFING WHEEL RAKER IMG MAMMO ORD ERABLES * DXA Central [...] BMD measurements and plots are available in EKonokopia under the imaging tab. Paper copies will be sent to providers without E-The Networking Effect access. If you have received this report without the data sheet and do not have access to RxResults, please contact Radiology Java Websphere Developer at [phone] Thursday thru Thursday 8am-4pm. Thank you for letting us participate in the care of this patient. ??If you are a health care provider and have any questions regarding this report, please contact the number below. ??For patients who have questions please contact the health tree care foreman that requested your imaging first. ? Narrative [...] BMD measurements and plots are available in Ekontoblickunder the imaging tab. Paper copies will be sent to providers without E- access.If you have received this report without the data sheet and do not haveaccess to E-, please contact Radiology Java Websphere Developer at [phone] Thursday thrriday 8am-4pm. Thank you for letting us participate in the care of this patient. If youare a health care provider and have any questions regarding this report,please contact the number below. For patients who have questions please contactthe health tree care foreman that requested your imaging first. Ricky Lowry [...] Status decision made by: Patient Care Teams Atomic Fuel Assembler Relationship Specialty Start Date End Date Ana Her MD [facility] [address] [place] [address] PCP - General 07/29/13
--- OUTSIDE RECORDS SUMMARY | 2024-06-03 10:38 | XMS_ITS | Encounter Summary ---
[place] [address] Care Team Providers Care Asset Protection Officer Name Role Phone Ana Her MD Primary Care Provider Reason for Visit * Auth/Cert Specialty Diagnoses / Procedures Referred By Christiano hackett Referred To Contact Diagnoses S/P repair of paraesophageal hernia Post-Op monitoring Procedures PRO LAPARSCOPY REPAIR PARAESOPHAGEAL HERNIA INCL FUNDOPLASTY W/O MESH LAPAROSCOPIC PARAESOPHAGEAL HERNIA REPAIR W/FUNDOPLASTY, W/O MESH (WRVU 26.6) MODIFIER TOUPET FUNDOPLASTY Shania Will MD [facility] [place] [address] [facility] Referral ID Status Reason Start Date Expiration Date Visits Re quested Visits Authorized [id number] 1 1 Encounter Details Date Type Department Care Team (Latest Contact Info) Description 03/05/2022 11:55 AM EDT - 03/07/2022 10:00 AM EDT Hospital Encounter [place] [id number] Shania Will MD [facility] [place] [address] Discharge Disposition: Home Social History Tobacco Use [...] of left breast of female, estrogen receptor amgpumjpP18.512, Z17.0 ??? Anemia D64.9 ??? Aortic valve [...] Per chart review, her creatinine levels in 5942-1898 ranged from 0.87-1.50 indicative of possible undiagnosed [...] Will MD General Surgery at [facility] Arrive at: Web Operations Manager Area [phone] Instructions Given to Patient at Discharge: Patient [...] hours please call the Surgery Clinic at [phone] before 5 PM on weekdays. For questions after hours and on weekends please call the hospital farm operator at [phone] and ask for the General Surgery resident supervisor electronic coils. They may not be familiar with your [...] post Sly diet, as instructed by the consultant education in the hospital for a period of [...] renal function. Please call the clinic at [phone] to confirm or reschedule. Future Appointments Date Time Provider Department Center 04/03/2022 12:00 PM Shania Will MD [facility] General Instructions None Future Appointments and Orders Future Appointments and Orders Future Appointments Provider Department Dept Phone 04/03/2022 12:00 PM Shania Will MD General Surgery at [facility] Arrive at: Web Operations Manager Area Signed: Shena Harden MD 03/07/22 7:18 AM [facility] 2026 Primary [place] Physician: MD Geovany David DR [facility] [id number] documented in this encounter Discharge Instructions * [...] hours please call the Surgery Clinic at [phone] before 5 PM on weekdays. For questions after hours and on weekends please call the hospital farm operator at [phone] and ask for the General Surgery resident supervisor electronic coils. They may not be familiar with your [...] post Sly diet, as instructed by the consultant education in the hospital for a period of [...] renal function. Please call the clinic at [phone] to confirm or reschedule. Future Appointments Date Time Provider Department Center 04/03/2022 12:00 PM Shania Will MD [facility] documented in this encounter Medications at Time [...] RN - 03/07/2022 10:[address] [facility] Short Stay Unit Discharge Note All relevant [...] Sly Diet Education to pt Digna Olson. Butane Compressor Operator metwith pt at bedside to deliver [...] she is noticing some overall improvement post op.Butane Compressor Operator took note of this and encouraged [...] contact information provided. Pt appreciate of comic writer's time. Nutrition to follow as needed. [...] Perez MD 03/05/2022 Minimally Invasive Surgery Pager #[phone] * Lorrie Slater RN - 03/05/2022 6:46 [...] ?? She is followed by cardiology at [facility], and is on xarelto. ?? Impression: ??Symptomatic [...] of left breast of female, estrogen receptor aurvbsntG98.512, Z17.0 ??? Anemia D64.9 ??? Aortic valve [...] at [facility] MAIN OR ?? Cholecystectomy ?? Medications: ?? [...] Operative Note Patient Name: Digna Olson : [id number] MR#: [id number] Case Date: 03/05/2022 Surgeon: Surgeon(s) and Role: [...] - 03/05/2022 2:32 PM EDT [facility] Operative Note Patient Name: Digna Olson : [id number] MR#: [id number] Case Date: 03/05/2022 Surgeon: Surgeon(s) and Role: [...] Repair Paraesophageal Hernia Incl Fundoplasty W/O Mesh (55967) 03/05/2022 1:58 PM EDT Paraesophageal Hernia POCT GLUCOSE Routine 03/05/2022 12:18 PM EDT LAPAROSCOPIC PARAESOPHAGEAL HERNIA REPAIR W FUNDOPLASTY, W/O MESH Routine 03/05/2022 12:02 PM EDT documented in this encounter Results * (ABNORMAL) Differential, Automated (03/07/2022 5:08 AM EDT) Neutrophil % 80.0 % [facility] Neutrophil Absolute 5.30 1.70 - 6.10 x10(3)/mc L [facility] Lymph % 12.1 % [facility] Lymphocytes Abs 0.8(L) 0.9 - 3.2 x10(3)/mc L [facility] Monocyte % 7.6 % [facility] Monocyte Abs 0.5 0.3 - 0.9 x10(3)/mc L [facility] Eos % 0.0 % [facility] Eosinophils Abs 0.0 0.0 - 0.4 x10(3)/mc L [facility] Basophil % 0.0 % [facility] Baso Absolute 0.0 0.0 - 0.1 x10(3)/[facility] Immature Gran % 0.30 % [facility] Comment: Immature granulocytes(IG's)percentage and absolute count will include metamyelocytes, myelocytes, and promyelocytes. Blood smears from CBCs yielding IG's will be scanned manually for concordance. If this scan disagrees with the automated IG or if promyelocytes are noted, a manual differential will be performed. Immature Gran Absolute 0.02 0.00 - 0.04 x10(3)/[facility] Blood 03/07/2022 5:08 AM EDT 03/07/2022 5:19 AM EDT Narrative Resulting Agency Comment Spec In Lab Nino Levy MD HEMATOLOGY ORDERABLE S Performing Organization Address City/State/[facility] Co de Phone Number [facility] [place] [address] * (ABNORMAL) Hemogram (03/07/2022 5:08 AM EDT) White Blood Cell 6.6 4.0 - 9.5 x10(3)/[facility] Red Blood Cell 3.16(L) 4.00 - 5.21 x10(6)/[facility] Hemoglobin 10.7(L) 11.7 - 15.5 g/dL [facility] Hematocrit 31.7(L) 35.7 - 45.8 % [facility] Mean Cell Volume 100.3(H) 82.6 - 94.4 fL [facility] Mean Cell Hemoglobin 33.9(H) 27.1 - 32.0 pg [facility] Mean Cell Hemoglobin Concentration 33.8 31.7 - 35.0 g/dL [facility] Platelet 110(L) 145 - 357 x10(3)/[facility] RDW Standard Deviation 47.5(H) 37.0 - 46.0 fL [facility] RDW coefficient of variation 12.9 11.5 - 14.1 % [facility] Mean Platelet Volume 11.7 7.6 - 12.9 fL [facility] NRBC% auto 0.0 % [facility] NRBC Absolute 0.000 0.000 - 0.000 x10(3)/mc L [facility] Blood 03/07/2022 5:08 AM EDT 03/07/2022 5:19 AM EDT Narrative Resulting Agency Comment Spec In Lab Nino Levy MD HEMATOLOGY ORDERABLE S [facility] [place] [address] * Phosphorus (03/07/2022 5:08 AM EDT) Phosphorus 2.7 2.5 - 4.5 mg/dL [facility] Blood 03/07/2022 5:08 AM EDT 03/07/2022 5:19 AM EDT Narrative Resulting Agency Comment Spec In Lab Shania Will MD CHEMISTRY ORDERABLE S Performing Organization Address City/[facility]/ZIP Co de Phone Number [facility] [place] [address] * Magnesium (03/07/2022 5:08 AM EDT) Magnesium 0.89 0.69 - 1.07 mmol/L [facility] Blood 03/07/2022 5:08 AM EDT 03/07/2022 5:19 AM EDT Narrative Resulting Agency Comment Spec In Lab Shania Will MD CHEMISTRY ORDERABLE S [facility] [place] [address] * (ABNORMAL) Basic Metabolic Panel (non-fasting) (03/07/2022 [...] Lab Shania Will MD [place] [address] * (ABNORMAL) Differential, Automated (03/06/2022 10:15 AM EDT) Pathologist [facility] Neutrophil % 90.7 % [facility] Neutrophil Absolute 5.79 1.70 - 6.10 x10(3)/ L [facility] Lymph % 5.0 % [facility] Lymphocytes Abs 0.3(L) 0.9 - 3.2 x10(3)/ L [facility] Monocyte % 3.8 % [facility] Monocyte Abs 0.2(L) 0.3 - 0.9 x10(3)/[facility] Eos % 0.0 % [facility] Eosinophils Abs 0.0 0.0 - 0.4 x10(3)/[facility] Basophil % 0.0 % [facility] [...] Absolute 0.03 0.00 - 0.04 x10(3)/ L [facility] Blood 03/06/2022 10:1 5 AM EDT 03/06/2022 10:21 AM EDT Narrative Resulting Agency Comment Spec In Lab Maryam MUELLER [place] [address] * (ABNORMAL) Hemogram (03/06/2022 10:15 AM EDT) [...] Platelet 111(L) 145 - 357 x10(3)/ L [facility] RDW Standard Deviation 47.2(H) 37.0 - 46.0 fL [facility] RDW coefficient of variation 12.9 11.5 - 14.1 % [facility] Mean Platelet Volume 11.5 7.6 - 12.9 fL [facility] NRBC% auto 0.0 % [facility] NRBC Absolute 0.000 0.000 - 0.000 x10(3)/mc L [facility] Blood 03/06/2022 10:1 5 AM EDT 03/06/2022 10:21 AM EDT Narrative Resulting Agency Comment Spec In Lab Maryam MUELLER HEMATOLOGY ORDERABL ES [facility] [place] [address] * Phosphorus (03/06/2022 10:15 AM EDT) Phosphorus 3.3 2.5 - 4.5 mg/dL [facility] Blood 03/06/2022 10:1 5 AM EDT 03/06/2022 10:21 AM EDT Narrative Resulting Agency Comment Spec In Lab Shania Will MD CHEMISTRY ORDERABLE S Performing Organization Address City/[facility]/ZIP Co de Phone Number [facility] [place] [address] * Magnesium (03/06/2022 10:15 AM EDT) Magnesium 0.69 0.69 - 1.07 mmol/L [facility] Blood 03/06/2022 10:1 5 AM EDT 03/06/2022 10:21 AM EDT Narrative Resulting Agency Comment Spec In Lab Shania Will MD CHEMISTRY ORDERABLE S Performing Organization Address [facility] Co de Phone Number [facility] [place] [address] * (ABNORMAL) Basic Metabolic Panel (non-fasting) (03/06/2022 10:15 AM EDT) Pathologist [facility] Glucose 155 65 - 199 mg/dL [facility] [...] CHEMISTRY ORDERABLE S Performing Organization Address City/State/[facility] Co de Phone Number [facility] [place] [address] * (ABNORMAL) Differential, Automated (03/06/2022 4:29 AM EDT) Neutrophil % 90.5 % [facility] Neutrophil Absolute 4.47 1.70 - 6.10 x10(3)/mc L [facility] Lymph % 6.9 % [facility] Lymphocytes Abs 0.3(L) 0.9 - 3.2 x10(3)/mc L [facility] Monocyte % 2.2 % [facility] Monocyte Abs 0.1(L) 0.3 - 0.9 x10(3)/mc L [facility] Eos % 0.0 % [facility] Eosinophils Abs 0.0 0.0 - 0.4 x10(3)/mc L [facility] Basophil % 0.2 % [facility] [...] Absolute 0.01 0.00 - 0.04 x10(3)/ L [facility] Blood 03/06/2022 4:29 AM EDT 03/06/2022 4:49 AM EDT Narrative Resulting Agency Comment Spec In Lab Prakash Mendez MD HEMATOLOGY ORDERABLE S [facility] [place] [address] * (ABNORMAL) Hemogram (03/06/2022 4:29 AM EDT) White Blood Cell 4.9 4.0 - 9.5 x10(3)/ L [facility] Red Blood Cell 3.08(L) 4.00 - 5.21 x10(6)/ L [facility] Hemoglobin 10.5(L) 11.7 - 15.5 g/dL [facility] Hematocrit 31.0(L) 35.7 - 45.8 % [facility] Mean Cell Volume 100.6(H) 82.6 - 94.4 fL [facility] Mean Cell Hemoglobin 34.1(H) 27.1 - 32.0 pg [facility] Mean Cell Hemoglobin Concentration 33.9 31.7 - 35.0 g/dL [facility] Platelet 104(L) 145 - 357 x10(3)/ L [facility] RDW Standard Deviation 47.5(H) 37.0 - 46.0 fL [facility] RDW coefficient of variation 12.9 11.5 - 14.1 % [facility] Mean Platelet Volume 11.8 7.6 - 12.9 fL [facility] NRBC% auto 0.0 % [facility] NRBC Absolute 0.000 0.000 - 0.000 x10(3)/mc L [facility] Blood 03/06/2022 4:29 AM EDT 03/06/2022 4:49 AM EDT Narrative Resulting Agency Comment Spec In Lab Prakash Mendez MD HEMATOLOGY ORDERABLE S [facility] [place] [address] * (ABNORMAL) Basic Metabolic Panel (non-fasting) (03/06/2022 [...] MD CHEMISTRY ORDERABLE S [facility] [place] [address] * POCT Glucose (03/05/2022 12:18 PM EDT) Glucose, POC 94 65 - 199 mg/dL [facility] Comment: Supplemental ranges: <140 mg/dL before meals <180 mg/dL all other times of the day Blood 03/05/2022 12:1 8 PM EDT 03/05/2022 12:18 PM EDT Shania Will MD POINT OF CARE TEST ORDERABLES Performing Organization Address City/[facility]/ZIP Co de Phone Number [facility] [address] documented in this encounter Visit Diagnoses Diagnosis [...] Unit) 1849 (New Bag - Provider: Lorire Slater RN) lactated ringers infusion 50 mL/hr, [...] Unit) documented in this encounter Care Teams Asset Protection Officer Relationship Specialty Start Date End Date Ana Her MD [address] [place] [address] PCP - General 07/29/13 documented as of this encounter
--- OUTSIDE RECORDS SUMMARY | 2024-06-03 10:38 | XMS_ITS | Encounter Summary ---
Author Organization [facility] [place] [address] Care Team Providers Care Slip Filler Name Role Phone Ana Her MD Primary Care Provider [phone] Encounter Details Date Type Department Care Team (Late st Contact Info) Description 03/10/2022 1:35 AM EST Ancillary Procedure Radiology Library at [facility] [place] [address] Ana Her MD [address] [place] [address] [facility] [address] [place], [place] [id number] Social History Tobacco Use Types Packs/Day Years [...] CT Chest (03/10/2022 1:31 AM EST) Narrative [facility] - 03/10/2022 1:31 AM EST This exam is auto-finalizing. It's purpose is for storage only. Ana Her MD IM FILM LIBRARY ORD ERABLES [place], [place] documented in this encounter Visit Diagnoses Not on filedocumented in this encounter Care Teams Slip Filler Relationship Specialty Start Date End Date Ana Her MD [facility] [address] [facility] [address] [place] [address] PCP - General 07/29/13 documented as of this encounter
--- OUTSIDE RECORDS SUMMARY | 2024-06-03 10:38 | XMS_ITS | Encounter Summary ---
Author Organization [facility] [place] [address] Care Team Providers Care Card Feeder Name Role Phone Ana Her MD Primary Care Provider [phone] Encounter Details Date Type Department Care Team (Latest Contact Info) Description 04/03/2022 12:00 PM EST TH Visit (TeleHealth) [place] [address] Laura Will MD [facility] [place] [address] Status post repair of paraesophageal diaphragmatic hernia [...] status documented in this encounter Care Teams Card Feeder Relationship Specialty Start Date End Date Ana Her MD [facility] [address] [place] [address] PCP - General 07/29/13 documented as of this encounter
--- OUTSIDE RECORDS SUMMARY | 2024-06-03 10:39 | XMS_ITS | Encounter Summary ---
[place] [address] Care Team Providers Care Junior Brand Manager Name Role Phone Ana Her MD Primary Care Provider [phone] Reason for Visit * Auth/Cert Specialty Diagnoses / Procedures Referred By Christiano hackett Referred To Contact Diagnoses S/P repair of paraesophageal hernia Post-Op monitoring Procedures PRO LAPARSCOPY REPAIR PARAESOPHAGEAL HERNIA INCL FUNDOPLASTY W/O MESH LAPAROSCOPIC PARAESOPHAGEAL HERNIA REPAIR W/FUNDOPLASTY, W/O MESH (WRVU 26.6) MODIFIER TOUPET FUNDOPLASTY Laura Will MD [facility] [place] [address] [facility] Referral ID Status Reason Start Date Expiration Date Visits Re quested Visits Authorized [id number] 1 1 Encounter Details Date Type Department Care Team (Late st Contact Info) Description 03/05/2022 1:58 PM EDT Anesthesia Event [place] [id number] Alisa Naqvi MD [facility] [place] [address] Alessia Ramirez [place] [address] Anesthesia Record Procedure Summary Procedure Name Responsible [...] Procedure Summary Date: 03/05/22 Room / Location: [address] MAIN OR Anesthesia Start: 8 Anesthesia Stop: 1823 Procedures: LAPAROSCOPIC PARAESOPHAGEAL HERNIA REPAIR W/FUNDOPLASTY, W/O MESH (WRVU 26.6) (N/A Abdomen) MODIFIER TOUPET FUNDOPLASTY (N/A Abdomen) Diagnosis: (Paraesophageal Hernia) Surgeons: Laura Will MD Responsible Provider: Alisa Naqvi MD Anesthesia Type: general ASA Status: 3 All Anesthesia Providers: Anesthesiologist: Brayan Hubbard MD; Alisa Naqvi MD; Dario Franco MD Interlocking Installer: Mo Vance DO Vitals Value Taken Time BP 125/75 03/05/22 1821 Temp Pulse 77 03/05/22 1823 Resp 18 03/05/22 1823 SpO2 100 % 03/05/22 182 Pain Level Vitals shown include unvalidated device data. Patient Location: PACU/[facility] Level of Consciousness: Awake and Alert [...] of left breast of female, estrogen receptor fvamvlmi77/25/2017 ??? Bicuspid aortic valve 06/10/2016 ??? Dyspnea [...] sneeze Cardiac Hx: Exercise stress test 10/07/21 [facility]: Resting electrocardiogram showed atrial fibrillation, right BBB, left anterior fascicular block. Patient achieved 4.64METS, achieved 93% of predicted HR for age. Electrocardiographic portion of test negative for ischemia. MPI negative for ischemia or infarction. EF 45%. Wall motion normal. ?? Echo 06/19/21 ([facility]): normal biventricular size and function, symmetric [...] PONV ppx Mo Shreyas DO Pinky 03/04/2022 Weight Tester Pager #[phone] Region - Other Informed Consent: Anesthetic plan [...] GERD (omeprazole) ?? Exercise stress test 10/07/21 [facility]: Resting electrocardiogram showed atrial fibrillation, right BBB, left anterior fascicular block. Patient achieved 4.64METS, achieved 93% of predicted HR for age. Electrocardiographic portion of test negative for ischemia. MPI negative for ischemia or infarction. EF 45%. Wall motion normal. ?? Echo 06/19/21 ([facility]): normal biventricular size and function, [...] 1 view ?? Followed by cardiology at [facility], notes under Care Everywhere. Last seen [...] mg documented in this encounter Care Teams Junior Brand Manager Relationship Specialty Start Date End Date Ana Her MD Geov[address] [facility] [place] [address] PCP - General 07/29/13 documented as of this encounter
--- OUTSIDE RECORDS SUMMARY | 2024-06-03 10:39 | XMS_ITS | Encounter Summary ---
Author Organization [facility] [place] [address] Care Team Providers Care Beam Racker Name Role Phone Ana Her MD Primary Care Provider [phone] Reason for Visit * Reason Comments Follow-up Encounter Details Date Type Department Care Team (Late st Contact Info) Description 05/31/2019 11:45 AM EST Office Visit [place] [phone] Ricky Lowry MD Malignant neoplasm of lower-outer [...] ??Excision with image-guided localization ?Lymph Node Sampling: ??[place] lymph node(s) ?Specimen Laterality: ??Left Tumor ?Histologic [...] ??DCIS not present in specimen Lymph Nodes ?[place] Lymph Nodes: [place] lymph node biopsy performed ?Number of [place] Nodes Examined: ??3 ?Number of Lymph Node(s) [...] positive documented in this encounter Care Teams Beam Racker Relationship Specialty Start Date End Date Ana Her MD [facility] [address] [facility] [address] [place] [address] PCP - General 07/29/13 documented as of this encounter
--- OUTSIDE RECORDS SUMMARY | 2024-06-03 10:39 | XMS_ITS | Encounter Summary ---
[place] [address] Care Team Providers Care District Associate Judge Name Role Phone Ana Her MD Primary Care Provider [phone] Encounter Details Date Type Department Care Team (Late st Contact Info) Description 11/01/2021 Telephone [place] [address] Chelsie Lauren Social History Tobacco Use Types [...] filedocumented in this encounter Care Teams District Associate Judge Relationship Specialty Start Date End Date Ana Her MD [address] [place] [address] PCP - General 07/29/13 documented as of this encounter
--- OUTSIDE RECORDS SUMMARY | 2024-06-03 10:39 | XMS_ITS | Encounter Summary ---
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 Procedures DXA Central-Spine, Hip, And/Or Whole Body (Generic) Ricky Lowry MD [facility] HEMATOLOGY/[place] [address] [facility] Rad Xray [address] [place] [address] [place] [address] Referral ID Status Reason Start Date Expiration Date V isits Requested Visits Authorized [id number] Closed Specialty Service Requested 05/10/2018 05/10/2019 1 1 Reason for Visit * Diagnostic Test (Routine) - Closed Specialty Diagnoses / Procedures Referred By Contac t Referred To Contact Radiology Diagnoses Malignant neoplasm of lower-outer quadrant of left breast of female, estrogen receptor positive Osteopenia of neck of femur, unspecified 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 Procedures DXA Central-Spine, Hip, And/Or Whole Body (Generic) Ricky Lowry MD [facility] HEMATOLOGY/[place] [address] [facility] Rad Xray [address] [place] [address] Dr [place], [place] [address] Referral ID Status Reason Start Date Expiration Date V isits Requested Visits Authorized [id number] Closed Specialty Service Requested 05/10/2018 05/10/2019 1 1 Encounter Details Date Type Department Care Team (Latest Contact Info) Description 11/09/2018 1:03 PM EDT - 11/09/2018 11:59 PM EDT Hospital Encounter XRay at [address] [place] [address] Ricky Lowry MD Malignant neoplasm of lower-outer [...] laterality intermediate current use of aromatase inhibitor documented in [...] BMD measurements and plots are available in [employer] under the imaging tab. Paper copies will be sent to providers without E-DH access. If you have received this report without the data sheet and do not have access to [employer], please contact Radiology Tube Bender at [phone] Thursday thru Thursday 8am-4pm. Thank you for letting us participate in the care of this patient. For questions regarding this report, please contact the number below. ? Electronically signed by: JULIET Jackson [facility] ([phone]), at 11/10/2018 10:55 AM Narrative 11/10/2018 10:55 [...] BMD measurements and plots are available in Pathfireunder the imaging tab. Paper copies will be sent to providers without [employer]It Online access.If you have received this report without the data sheet and do not haveaccess to [employer], please contact Radiology Tube Bender at [phone] Thursday thruFriday 8am-4pm. Thank you for letting us participate in the care of this patient. Forquestions regarding this report, please contact the number below. 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
--- OUTSIDE RECORDS SUMMARY | 2024-06-03 10:39 | XMS_ITS | Encounter Summary ---
Author Organization [facility] [place] [address] Care Team Providers Care Escort Service Attendant Name Role Phone Ana Her MD Primary Care Provider [phone] Encounter Details Date Type Department Care Team (Late st Contact Info) Description 05/10/2018 1:10 PM EST - 05/10/2018 11:59 PM EST Hospital Encounter Mammography/[place] [phone] Hiral Padgett, WENDY Encounter for screening mammogram [...] cancer documented in this encounter Care Teams Escort Service Attendant Relationship Specialty Start Date End Date Ana Her MD [address] [place] [address] PCP - General 07/29/13 documented as of this encounter
--- OUTSIDE RECORDS SUMMARY | 2024-06-03 10:39 | XMS_ITS | Encounter Summary ---
[place] [address] Care Team Providers Care Gas Operator Name Role Phone Ana Her MD Primary Care Provider [phone] Encounter Details Date Type Department Care Team (Late st Contact Info) Description 12/17/2021 Telephone [place] [phone] Roma Estrada RN Social History Tobacco Use [...] filedocumented in this encounter Care Teams Gas Operator Relationship Specialty Start Date End Date Ana Her MD [address] [place] [address] PCP - General 07/29/13 documented as of this encounter
--- OUTSIDE RECORDS SUMMARY | 2024-06-03 10:39 | XMS_ITS | Encounter Summary ---
[place] [address] Care Team Providers Care Can Bander Operator Name Role Phone Ana Her MD Primary Care Provider [phone] Reason for Visit * Reason Comments Follow-up Encounter Details Date Type Department Care Team (Late st Contact Info) Description 11/15/2020 4:00 PM EDT Office Visit Hematology [place] [phone] Laura Joaquin PA Malignant neoplasm of lower-outer [...] ??Excision with image-guided localization ?Lymph Node Sampling: ??[place] lymph node(s) ?Specimen Laterality: ??Left Tumor ?Histologic [...] ??DCIS not present in specimen Lymph Nodes ?[place] Lymph Nodes: [place] lymph node biopsy performed ?Number of [place] Nodes Examined: ??3 ?Number of Lymph Node(s) [...] GI Cancers [facility] Pager - [phone] documented in this encounter Plan of Treatment Not on file documented as of this encounter Visit Diagnoses Diagnosis Malignant neoplasm of lower-outer quadrant of left breast of female, estrogen receptor positive documented in this encounter Care Teams Can Bander Operator Relationship Specialty Start Date End Date Ana Her MD [address] [place] [address] PCP - General 07/29/13 documented as of this encounter
--- OUTSIDE RECORDS SUMMARY | 2024-06-03 10:39 | XMS_ITS | Encounter Summary ---
[place] [address] Care Team Providers Care Gear Machinist Name Role Phone Ana Her MD Primary Care Provider [phone] Reason for Visit * Reason Comments Follow-up Encounter Details Date Type Department Care Team (Late st Contact Info) Description 05/22/2020 11:40 AM EST Office [place] [address] Jeanine Lobato APRN [facility] [place] [address] Encounter for follow-up surveillance of breast cancer; [...] ??Excision with image-guided localization ?Lymph Node Sampling: ??[place] lymph node(s) ?Specimen Laterality: ??Left Tumor ?Histologic [...] ??DCIS not present in specimen Lymph Nodes ?[place] Lymph Nodes: [place] lymph node biopsy performed ?Number of [place] Nodes Examined: ??3 ?Number of Lymph Node(s) [...] herex- speak almost daily. He lives in [place] and is beginning to show early signs [...] situation. Results: Imaging performed (bilateral mammogram) at [facility] today shows no evidence of malignancy, BIRADS [...] available at [employer] ([employer]) and [employer]. All questions were answered to the patient's satisfaction and they state understanding and agreement with today's treatment plan. They are encouraged to follow up sooner if they develop any new or concerning symptoms. Jeanine Lobato APRN Surgical Oncology P [phone] F [phone] [facility] documented in this encounter Plan of [...] who have questions please contact the health lead care manager that requested your imaging first. [...] mammogram documented in this encounter Care Teams Gear Machinist Relationship Specialty Start Date End Date Ana Her MD [facility] [address] [place] [address] PCP - General 07/29/13 documented as of this encounter
--- OUTSIDE RECORDS SUMMARY | 2024-06-03 10:39 | XMS_ITS | Encounter Summary ---
[place] [address] Care Team Providers Care Judo Teacher Name Role Phone Ana Her MD Primary Care Provider Encounter Details Date Type Department Care Team (Late st Contact Info) Description 11/09/2018 2:45 PM EDT Office Visit Hematology [place] [address] Ricky Lowry MD Malignant neoplasm of lower-outer [...] ??Excision with image-guided localization ?Lymph Node Sampling: ??[place] lymph node(s) ?Specimen Laterality: ??Left Tumor ?Histologic [...] ??DCIS not present in specimen Lymph Nodes ?[place] Lymph Nodes: [place] lymph node biopsy performed ?Number of [place] Nodes Examined: ??3 ?Number of Lymph Node(s) [...] Spinal stenosis > A Fib. Cardiology at [facility]. S/P successful cardioversion May 2018. DEXA scan [...] laterality documented in this encounter Care Teams Judo Teacher Relationship Specialty Start Date End Date Ana Her MD [address] [place] [address] PCP - General 07/29/13 documented as of this encounter
--- OUTSIDE RECORDS SUMMARY | 2024-06-03 10:39 | XMS_ITS | Encounter Summary ---
[place] [address] Care Team Providers Care Healthcare Specialist Name Role Phone Ana Her MD Primary Care Provider [phone] Encounter Details Date Type Department Care Team (Late st Contact Info) Description 06/12/2021 Telephone [place] [address] Chelsie Lauren Social History Tobacco Use Types [...] on filedocumented in this encounter Care Teams Healthcare Specialist Relationship Specialty Start Date End Date Ana Her MD [address] [place] [address] PCP - General 07/29/13 documented as of this encounter
--- OUTSIDE RECORDS SUMMARY | 2024-06-03 10:39 | XMS_ITS | Encounter Summary ---
Author Organization [facility] [place] [address] Care Team Providers Care Clay Machine Operator Name Role Phone Ana Her MD Primary Care Provider [phone] Encounter Details Date Type Department Care Team (Latest Contact Info) Description 05/22/2020 10:46 AM EST - 05/22/2020 11:59 PM [facility] Hospital Encounter Mammography/[place] [phone] Jeanine Lobato APRN [facility] [place] [address] Malignant neoplasm of lower-outer quadrant of left [...] mammogram documented in this encounter Care Teams Clay Machine Operator Relationship Specialty Start Date End Date Ana Her MD [facility] [address] [facility] 1 [place] [address] PCP - General 07/29/13 documented as of this encounter
--- OUTSIDE RECORDS SUMMARY | 2024-06-03 10:39 | XMS_ITS | Encounter Summary ---
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 Results: Last DXA [...] Medical Oncology - Breast & GI Cancers [facility] Pager - [phone] No future appointments. documented in this encounter Plan of Treatment Not on file documented as of this encounter Visit Diagnoses Diagnosis Malignant neoplasm of lower-outer quadrant of left breast of female, estrogen receptor positive snf current use of aromatase inhibitor Use of aromatase inhibitors documented in this encounter Care Teams Lathe Machine Operator Relationship Specialty Start Date End Date Ana Her MD [address] [place] [address] PCP - General 07/29/13 documented as of this encounter
--- OUTSIDE RECORDS SUMMARY | 2024-06-03 10:39 | XMS_ITS | Encounter Summary ---
Author Organization [facility] [place] [address] Care Team Providers Care Planning Supervisor Name Role Phone Ana Her MD Primary Care Provider [phone] Reason for Visit * Reason Comments Advice Only BBR * Consultation (Routine) - Closed Specialty Diagnoses / Procedures Referred By Christiano hackett Referred To Contact Plastic Surgery Diagnoses Malignant neoplasm of lower-outer quadrant of left breast of female, estrogen receptor positive Macromastia Jeanine Lobato APRN [facility] [place] [address] [facility] [address] [place] [address] Referral ID Status Reason Start Date Expiration Date V isits Requested Visits Authorized [id number] Closed Consult, Test & Treat 06/11/2021 06/11/2022 1 1 Encounter Details Date Type Department Care Team (Late st Contact Info) Description 07/09/2021 8:30 AM EST Office [place] [address] Med Hudson MD [facility] [place] [address] Macromastia Social History Tobacco Use [...] with your primary care doctor and Fisher Pot clearance Two Weeks prior to Surgery Do [...] Day of Surgery You will need a route relief driver. If you do not have a route relief driver, your surgery will be canceled. DO [...] For questions pertaining to your surgical date [phone] For nursing related questions [phone] On weekends, holidays or after office hours: Call and ask the cut off saw operator to page the Plastic Surgery Resident chocolate production machine operator. documented in this encounter Progress Notes [...] and was normal. This was performed at [facility]. She has completed a breast specific questionnaire: [...] MD at [facility] Family History Problem Relation [...] surgery is best done at a realistic detention stable weight. We talked about the outpatient [...] revisions for scarring or asymmetry.) Garcia or [place] Pattern Incision: More scarring on breast, but [...] Timeframe: Elective Procedure: Bilateral breast reduction CPT: 29904 Surgical Technique: Garcia, Pedicle Surgical site: Breasts Side: Bilateral Anesthesia: General Follow up: 1 day for drain removal; 7-10 days for HCK PAT: H+P PCP, Cardiac clearance. Need to discontinue blood thinners pre-op? Xarelto documented in this encounter Plan of Treatment Not on file documented as of this encounter Visit Diagnoses Diagnosis Macromastia Hypertrophy of breast documented in this encounter Care Teams Planning Supervisor Relationship Specialty Start Date End Date Ana Her MD [address] [place] [address] PCP - General 07/29/13 documented as of this encounter
--- OUTSIDE RECORDS SUMMARY | 2024-06-03 10:39 | XMS_ITS | Encounter Summary ---
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 Procedures DXA Central-Spine, Hip, And/Or Whole Body (Generic) Ricyk Lowry MD [facility] DR HEMATOLOGY/[place] [address] [facility] Rad Xray [address] [place] [address] [place] [address] Referral ID Status Reason Start Date Expiration Date V isits Requested Visits Authorized [id number] Closed Specialty Service Requested 05/10/2018 05/10/2019 1 1 Reason for Visit * Reason Comments Follow-up Encounter Details Date Type Department Care Team (Late st Contact Info) Description 05/10/2018 2:45 PM EST Office Visit Hematology and Oncology at [facility] [place] [address] Ricky Lowry MD Malignant neoplasm of lower-outer quadrant of left breast of female, estrogen receptor positive; Osteopenia of neck of femur, unspecified laterality; [facility] current use of aromatase inhibitor Social History [...] ??Excision with image-guided localization ?Lymph Node Sampling: ??[place] lymph node(s) ?Specimen Laterality: ??Left Tumor ?Histologic [...] ??DCIS not present in specimen Lymph Nodes ?[place] Lymph Nodes: [place] lymph node biopsy performed ?Number of [place] Nodes Examined: ??3 ?Number of Lymph Node(s) [...] Cardiology at [facility]. Most recent DEXA scan was last year at [facility]. There is no history of thromboembolic [...] is planned for later this week (at [facility]). No new problems with VELEZ, diplopia, cough, [...] chemotherapy. TACHO. Renewal of anastrazole sent. Given [facility] brochure to share with cousins. [...] BMD measurements and plots are available in [employer] under the imaging tab. Paper copies will be sent to providers without Can[employer]ag access. If you have received this report without the data sheet and do not have access to [employer], please contact Radiology Chlorination Operator at [phone] Thursday thru Thursday 8am-4pm. Thank you for [...] BMD measurements and plots are available in BFKWunder the imaging tab. Paper copies will be sent to providers without CanDiag access.If you have received this report without the data sheet and do not haveaccess to CanDiag, please contact Radiology Chlorination Operator at [phone] Thursday thruFriday 8am-4pm. Thank you for letting us participate in the care of this patient. Forquestions regarding this report, please contact the number below. 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
--- OUTSIDE RECORDS SUMMARY | 2024-06-03 10:39 | XMS_ITS | Encounter Summary ---
Author Organization [facility] Address [facility] [place] [address] Care Team Providers Care Designer/Writer Name Role Phone Ana Her MD Primary Care Provider [phone] Encounter Details Date Type Department Care Team (Late st Contact Info) Description 09/03/2021 Ancillary Procedure Radiology Library at [facility] [place] [address] Laura Will MD [facility] [place] [address] Social History Tobacco Use Types Packs/Day Years [...] (09/03/2021 12:00 AM EDT) Narrative [facility] - 11/28/2021 1:22 PM EDT This exam is auto-finalizing. It's purpose is for storage only. Laura Will MD IMG FILM LIBRARY OR DERABLES Performing Organization Address City/State/[facility] Co de Phone Number [place], [place] documented in this encounter Visit Diagnoses Not on filedocumented in this encounter Care Teams Designer/Writer Relationship Specialty Start Date End Date Ana Her MD [address] [facility] 1 [place] [address] PCP - General 07/29/13 documented as of this encounter
--- OUTSIDE RECORDS SUMMARY | 2024-06-03 10:39 | XMS_ITS | Encounter Summary ---
[place] [address] Care Team Providers Care Hair Boiler Name Role Phone Ana Her MD Primary Care Provider [phone] Encounter Details Date Type Department Care Team (Late st Contact Info) Description 12/24/2021 Telephone [place] [address] Chelsie Lauren Social History Tobacco Use Types [...] on filedocumented in this encounter Care Teams Hair Boiler Relationship Specialty Start Date End Date Ana Her MD [address] [place] [address] PCP - General 07/29/13 documented as of this encounter
--- OUTSIDE RECORDS SUMMARY | 2024-06-03 10:39 | XMS_ITS | Encounter Summary ---
Author Organization [facility] [place] [address] Care Team Providers Care Residential Service Technician Name Role Phone Ana Her MD Primary Care Provider [phone] Encounter Details Date Type Department Care Team (Latest Contact Info) Description 01/23/2022 12:15 PM EDT TH Visit (TeleHealth) [place] [address] Laura Will MD [facility] [place] [address] Paraesophageal hernia Social History Tobacco Use Types [...] her. She is followed by cardiology at [facility], and is on xarelto. Impression: Symptomatic paraesophageal [...] gangrene documented in this encounter Care Teams Residential Service Technician Relationship Specialty Start Date End Date Ana Her MD [address] [facility] [address] [place] [address] PCP - General 07/29/13 documented as of this encounter
--- OUTSIDE RECORDS SUMMARY | 2024-06-03 10:39 | XMS_ITS | Encounter Summary ---
Author Organization [place] [address] Care Team Providers Care Clinical Trial Specialist Name Role Phone Ana Her MD Primary Care Provider [phone] Reason for Visit * Consultation (Routine) - Closed Specialty Diagnoses / Procedures Referred By Christiano hackett Referred To Contact General Surgery Diagnoses Hiatal hernia Ana Her MD [address] [place] [address] [facility] Gen Surgery [address] [place] [address] Referral ID Status Reason Start Date Expiration Date V isits Requested Visits Authorized [id number] Closed Consult, Test & Treat 09/23/2021 09/23/2022 6 6 Encounter Details Date Type Department Care Team (Latest Contact Info) Description 12/05/2021 3:00 PM EDT Office [place] [address] Laura Will MD [facility] [place] [address] Paraesophageal hernia Social History Tobacco [...] of left breast of female, estrogen receptor dixocoorZ92.512, Z17.0 ??? Anemia D64.9 ??? Aortic valve [...] 6.43) performed by Malika Chen MD at [facility] MAIN OR ??? PRO INTRAOP SENTINEL LYMPH ID W/DYE INJECTION Left 03/30/2017 INTRAOPERATIVE ID (MAPPING) SENTINEL LYMPH NODE,INCLUDES INJECTION (WRVU 2.5) performed by Malika Chen MD at [facility] MAIN OR ??? PRO MASTECTOMY PARTIAL Left 03/30/2017 MASTECTOMY PARTIAL (WRVU 10.13) performed by Malika Chen MD at [facility] MAIN OR Cholecystectomy Medications: Current [...] gangrene documented in this encounter Care Teams Clinical Trial Specialist Relationship Specialty Start Date End Date Ana Her MD [address] [place] [address] PCP - General 07/29/13 documented as of this encounter
--- OUTSIDE RECORDS SUMMARY | 2024-06-03 10:39 | XMS_ITS | Encounter Summary ---
[place] [address] Care Team Providers Care Casualty Insurance Claim Adjuster Name Role Phone Ana Her MD Primary Care Provider [phone] Encounter Details Date Type Department Care Team (Late st Contact Info) Description 05/10/2018 2:15 PM EST Office [place] [address] Hiral Padgett, WENDY History of breast cancer [...] with image-guided localization ?Lymph Node Sampling: ?? [place] lymph node(s) ?Specimen Laterality: ?? Left Tumor [...] ?DCIS not present in specimen Lymph Nodes ?[place] Lymph Nodes: ?? [place] lymph node biopsy performed ?Number of [place] Nodes Examined: ?3 ?Number of Lymph Node(s) [...] mammogram today is cat 2. Leaving for [place] later today for a cardiac ablation[place] [facility]. Objective: Physical Exam Constitutional: She is oriented [...] breast documented in this encounter Care Teams Casualty Insurance Claim Adjuster Relationship Specialty Start Date End Date Ana Her MD [address] [place] [address] PCP - General 07/29/13 documented as of this encounter
--- OUTSIDE RECORDS SUMMARY | 2024-06-03 10:39 | XMS_ITS | Encounter Summary ---
Author Organization [place] [address] Care Team Providers Care Game Operator Name Role Phone Ana Her MD Primary Care Provider [phone] Encounter Details Date Type Department Care Team (Late st Contact Info) Description 01/08/2022 7:42 AM EDT Anesthesia [place] [address] Alisa Naqvi MD [facility] [place] [address] Anesthesia Record Procedure Summary Procedure Name Responsible [...] cephalic vein (lateral side of arm), left; nidi-ots-xhogqp catheter system; Anatomical Landmarks; 20 gauge; Joslyn [...] Procedure Summary Date: 01/08/22 Room / Location: [address] MAIN OR Anesthesia Start: 741 Anesthesia Stop: 825 Procedure: EGD, UPPER GI ENDOSCOPY (N/A Trunk) Diagnosis: (Hiatal hernia) Surgeons: Laura Will MD Responsible Provider: Alisa Naqvi MD Anesthesia Type: general ASA Status: 3 All Anesthesia Providers: Anesthesiologist: Alisa Naqvi MD Chip Person: Nghia Valerio MD Vitals Value Taken Time BP 98/56 01/08/22 0823 Temp Pulse Resp SpO2 99 % 01/08/22 0827 Pain Level Vitals shown include unvalidated device data. Patient Location: PACU/[facility] Level of Consciousness: Conscious but Sleepy [...] of left breast of female, estrogen receptor fzpwnzzu08/25/2017 ??? Bicuspid aortic valve 06/10/2016 ??? Dyspnea [...] [facility] MAIN OR Social History Tobacco Use ??? [...] mg documented in this encounter Care Teams Game Operator Relationship Specialty Start Date End Date Ana Her MD [address] [facility] [address] [place] [address] PCP - General 07/29/13 documented as of this encounter
--- OUTSIDE RECORDS SUMMARY | 2024-06-03 10:39 | XMS_ITS | Encounter Summary ---
[place] [address] Care Team Providers Care Traditional Maori Health Practitioner Name Role Phone Ana Her MD Primary Care Provider [phone] Encounter Details Date Type Department Care Team (Late st Contact Info) Description 04/05/2018 Telephone [place] [address] Adrianna Jones Social History Tobacco Use Types [...] Padgett. Patient advises she is admitted at [facility] for afib and is pending procedure etc. Patient will call to reschedule once she is discharged home. documented in this encounter Plan of Treatment Not on file documented as of this encounter Visit Diagnoses Not on filedocumented in this encounter Care Teams Traditional Maori Health Practitioner Relationship Specialty Start Date End Date Ana Her MD [address] [place] [address] PCP - General 07/29/13 documented as of this encounter
--- OUTSIDE RECORDS SUMMARY | 2024-06-03 10:39 | XMS_ITS | Encounter Summary ---
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 Procedures DXA Central Spine, Hip, and/or Whole Body (Generic) Ricky Lowry MD [facility] HEMATOLOGY/[place] [address] [facility] Rad Xray [address] [place] [address] [place] [address] Referral ID Status Reason Start Date Expiration Date V isits Requested Visits Authorized [id number] Closed Specialty Service Requested 05/22/2020 11/19/2021 1 [...] Whole Body (Generic) Ricky Lowry MD [facility] HEMATOLOGY/[place] [address] [facility] Rad Xray [address] [place] [address] Dr [place] briscoe [address] Referral ID Status Reason Start Date Expiration Date V isits Requested Visits Authorized [id number] Closed Specialty Service Requested 05/22/2020 11/19/2021 1 1 Encounter Details Date Type Department Care Team (Latest Contact Info) Description 11/15/2020 2:25 PM EDT - 11/15/2020 11:59 PM EDT Hospital Encounter XRay at [address] [place] [address] Ricky Lowry MD Malignant neoplasm of lower-outer quadrant of left breast of female, estrogen receptor positive; Osteopenia of neck of femur, unspecified laterality; 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 Paper copies will be sent to providers without E- access. If you have received this report without the data sheet and do not have access to [employer], please contact Radiology Assistant [employer] Of Content [employer] Delivery at [phone] Thursday thru Thursday 8am-4pm. Thank you for letting us participate in the care of this patient. ??If you are a health care provider and have any questions regarding this report, please contact the number below. ??For patients who have questions please contact the health acute care nurse practitioner that requested your imaging first. ? Narrative [...] BMD measurements and plots are available in [employer] / Nu[employer] Shopunder the imaging tab. Paper copies will be sent to providers without - access.If you have received this report without the data sheet and do not haveaccess to [facility], please contact Radiology Assistant [employer] Of [employer] Delivery at [phone] Thursday thrrid 8am-4pm. Thank you for letting us participate in the care of this patient. If youare a health care provider and have any questions regarding this report,please contact the number below. For patients who have questions please contactthe health acute care nurse practitioner that requested your imaging first. 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
--- OUTSIDE RECORDS SUMMARY | 2024-06-03 10:39 | XMS_ITS | Encounter Summary ---
Author Organization [facility] [place] [address] Care Team Providers Care Chemistry Instructor Name Role Phone Ana Her MD Primary Care Provider [phone] Encounter Details Date Type Department Care Team (Late st Contact Info) Description 05/31/2019 1:00 PM EST Office Visit [place] [address] Jeanine Lobato CORE LAYING MACHINE OPERATOR [facility] [place] [address] Encounter for follow-up surveillance of breast cancer; [...] of this encounter Progress Notes * Jeanine Lobaot APRN - 05/31/2019 1:00 PM EST Images [...] herex- speak almost daily. He lives in [place]. She enjoys reading and cooking. She does [...] symptoms. Jeanine Lobato APRN Surgical Oncology P [phone] F [phone] [facility] documented in this encounter Plan of [...] mammogram documented in this encounter Care Teams Chemistry Instructor Relationship Specialty Start Date End Date Ana Her MD [facility] [address] [facility] [[email or web address] 1 [place] [address] PCP - General 07/29/13 documented as of this encounter
--- OUTSIDE RECORDS SUMMARY | 2024-06-03 10:39 | XMS_ITS | Encounter Summary ---
[place] [address] Care Team Providers Care Marketing Rotation Associate Name Role Phone Ana Her MD Primary Care Provider 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 * Consultation (Routine) - Closed Specialty Diagnoses / Procedures Referred By Christiano hackett Referred To Contact General Surgery Diagnoses Hiatal hernia Ana Her MD [address] [place] [address] [facility] [place] [address] [place] [phone] Referral ID Status Reason Start Date Expiration Date V isits Requested Visits Authorized [id number] Closed Consult, Test & Treat 09/23/2021 09/23/2022 6 6 Encounter Details Date Type Department Care Team (Late st Contact Info) Description 09/23/2021 Transcribe Orders eDH Incoming Referrals [phone] Ana Her MD [address] [place] [address] Hiatal hernia Social History Tobacco [...] gangrene documented in this encounter Care Teams Marketing Rotation Associate Relationship Specialty Start Date End Date Ana Her MD [address] [place] [address] PCP - General 07/29/13 documented as of this encounter
--- OUTSIDE RECORDS SUMMARY | 2024-06-03 10:39 | XMS_ITS | Encounter Summary ---
Author Organization [facility] [address] Care Team Providers Care Agricultural Engineering Technicians Name Role Phone Ana Her MD Primary Care Provider [phone] Encounter Details Date Type Department Care Team (Latest Contact Info) Description 05/31/2019 10:16 AM EST - 05/31/2019 11:59 PM EST Hospital Encounter Mammography/[place] [phone] Jeanine Lobato APRN [facility] [place] [address] History of breast cancer Discharge Disposition: Home [...] BIRADS CATEGORY 2: Benign findings. * ??[employer] and The Society of [...] breast documented in this encounter Care Teams Agricultural Engineering Technicians Relationship Specialty Start Date End Date Ana Her MD [address] [place] [address] PCP - General 07/29/13 documented as of this encounter
--- OUTSIDE RECORDS SUMMARY | 2024-06-03 10:39 | XMS_ITS | Encounter Summary ---
Author Organization [facility] [place] [address] Care Team Providers Care Field Mechanic/Site Lead Name Role Phone Ana Her MD Primary Care Provider [phone] Encounter Details Date Type Department Care Team (Late st Contact Info) Description 10/23/2017 9:43 AM EDT - 10/23/2017 11:59 PM EDT Hospital Encounter [place] [address] Hiral Padgett, WENDY History of breast cancer [...] documented in this encounter Care Teams Field Mechanic/Site Lead Relationship Specialty Start Date End Date Ana Her MD [address] [place] [address] PCP - General 07/29/13 documented as of this encounter
--- OUTSIDE RECORDS SUMMARY | 2024-06-03 10:39 | XMS_ITS | Encounter Summary ---
[place] [address] Care Team Providers Care Educational Consultant Name Role Phone Ana Her MD Primary Care Provider [phone] 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 * Consultation (Routine) - Closed Specialty Diagnoses / Procedures Referred By Christiano hackett Referred To Contact Plastic Surgery Diagnoses Malignant neoplasm of lower-outer quadrant of left breast of female, estrogen receptor positive Macromastia Jeanine Lobato APRN [facility] [place] [address] [facility] Plastic Surg [address] [address] Referral ID Status Reason Start Date Expiration Date V isits Requested Visits Authorized [id number] Closed Consult, Test & Treat 06/11/2021 06/11/2022 1 1 Encounter Details Date Type Department Care Team (Late st Contact Info) Description 06/11/2021 10:00 AM EST Office [place] [address] Jeanine Lobato APRN [facility] [place] [address] Encounter for follow-up surveillance of [...] this encounter Progress Notes * Jeanine Lobato, MEDICAL AFFAIRS MANAGER - 06/11/2021 10:00 AM EST Images [...] Family history of ovarian cancer No Ashkenazi Evangelical heritage No Known genetic mutation Not tested [...] free apps for your cell phone from [employer] (Healthy Living) and [employer] ([employer]). All questions were answered to the patient's satisfaction and they state understanding and agreement with today's treatment plan. They are encouraged to follow up sooner if they develop any new or concerning symptoms. Jeanine Lobato APRN Surgical Oncology P [phone] F [phone] [facility] documented in [...] breast documented in this encounter Care Teams Educational Consultant Relationship Specialty Start Date End Date Ana Her MD [address] [place] [address] PCP - General 07/29/13 documented as of this encounter
--- OUTSIDE RECORDS SUMMARY | 2024-06-03 10:39 | XMS_ITS | Encounter Summary ---
[place] [address] Care Team Providers Care In Room Dining Server Name Role Phone Ana Her MD Primary Care Provider [phone] Encounter Details Date Type Department Care Team (Late st Contact Info) Description 01/08/2022 7:30 AM EDT - 01/08/2022 8:40 AM EDT [place] [phone] Laura Park MD [facility] [place] [address] EGD, UPPER GI ENDOSCOPY (WRVU 2.09) Social [...] a nurse in the Thoracic Clinic at [phone]. After hours or on weekends or holidays please call: [phone] and ask to speak to the Thoracic Physician conditioner tumbler. Diet: You should follow a clear liquid [...] - 5pm): General Surgery and Bariatric Surgery [phone] Bariatric Surgeons: Drs. Park and John [phone] Sas Bi Developer: [phone] Dietitians: [phone] Outside of regular business hours, including weekends and holidays: Ask for General Surgery resident conditioner tumbler [phone] Please note, this call will be answered [...] of left breast of female, estrogen receptor cwcagwoyP80.512, Z17.0 ??? Anemia D64.9 ??? A[facility] valve [facility] ??? PRO MASTECTOMY PARTIAL Left 03/30/2017 ?? MASTECTOMY PARTIAL (WRVU 10.13) performed by Malika Chen MD at [facility] MAIN OR ?? Cholecystectomy ?? [...] Park MD - 01/08/2022 7:48 AM EDT [facility] Operative Note Patient Name: Digna Olson : [id number] MR#: [id number] Case Date: 01/08/2022 Surgeon: Surgeon(s) and Role: [...] Info Order Time SPECIMEN TO PATHOLOGY Gastric [place] for H Pylori Hiatal hernia Gastric [place] for H Pylori excision 01/08/2022 8:15 AM [...] 8:14 AM EDT Upper GI Endoscopy, Diagnostic (12371) Yes 01/08/2022 7:40 AM EDT Hiatal hernia [...] PATHOLOGY/CYTOLOGY ORDERABLES [facility] [place] [address] * Surgical Pathology Report (01/08/2022 8:14 AM EDT) Final Diagnosis [id number] ? Location: SDP; SD36; A The signing pathologist has (i) examined the relevant preparation(s) for the specimen(s) and (ii) rendered or confirmed the diagnosis(es). . ?Surgical Pathology DIAGNOSIS A - Gastric ??Antrum for H Pylori, excision: - ??Antrum-type mucosa with reactive gastropathy. Electronically signed by: ?Umang Raymundo MD Verified: ??01/09/2022 16:36 ??Pathologist Performed at: ??-[facility] Dept. of Pathology, [place], [place] SPECIMEN(S) SUBMITTED A - Gastric ??Antrum [...] Park MD PATHOLOGY/CYTOLOGY ORDERABLES Performing Organization Address City/State/[facility] Co de Phone Number [facility] [place] [address] * POCT Glucose (01/08/2022 6:33 AM EDT) Glucose, POC 120 65 - 199 mg/dL [facility] Comment: Supplemental ranges: <140 mg/dL before meals <180 mg/dL all other times of the day Blood 01/08/2022 6:33 AM EDT 01/08/2022 6:33 AM EDT Laura Park MD POINT [place] [address] documented in this encounter Visit Diagnoses Not on filedocumented in this encounter Active and Recently Administered Medications Care Teams In Room Dining Server Relationship Specialty Start Date End Date Ana Her MD [address] [facility] [address] [place] [address] PCP - General 07/29/13 documented as of this encounter
--- OUTSIDE RECORDS SUMMARY | 2024-06-03 10:39 | XMS_ITS | Encounter Summary ---
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 Procedures DXA Central Spine, Hip, and/or Whole Body (Generic) Ricky Lowry MD [facility] DR HEMATOLOGY/[place] [address] [facility] Rad Xray [address] [place] [address] [place] [address] Referral ID Status Reason Start Date Expiration Date V isits Requested Visits Authorized [id number] Closed Specialty Service Requested 05/22/2020 11/19/2021 1 1 Encounter Details Date Type Department Care Team (Late st Contact Info) Description 05/22/2020 1:15 PM EST Office Visit Hematology and Oncology at [facility] [place] [address] Ricky Lowry MD Malignant neoplasm [...] ??Excision with image-guided localization ?Lymph Node Sampling: ??[place] lymph node(s) ?Specimen Laterality: ??Left Tumor [...] ??DCIS not present in specimen Lymph Nodes ?[place] Lymph Nodes: [place] lymph node biopsy performed ?Number of [place] Nodes Examined: ??3 ?Number of Lymph [...] stenosis > A Fib. Cardiology at [facility]. S/P successful cardioversion [...] BMD measurements and plots are available in [employer] under the imaging tab. Paper copies will be sent to providers without [employer] access. If you have received this report without the data sheet and do not have access to [employer], please contact Radiology [facility] at [phone] Thursday thru Thursday 8am-4pm. Thank you for letting us participate in the care of this patient. ??If you are a health care provider and have any questions regarding this report, please contact the number below. ??For patients who have questions please contact the health career technical counselor that requested your imaging first. ? Narrative [...] BMD measurements and plots are available in E2ND[employer]UREunder the imaging tab. Paper copies will be sent to providers without WebT[employer]er access.If you have received this report without the data sheet and do not haveaccess to [employer], please contact Radiology Tuber Machine Cutter at [phone] Thursday thruFriday 8am-4pm. Thank you for letting us participate in the care of this patient. If youare a health care provider and have any questions regarding this report,please contact the number below. For patients who have questions please contactthe health career technical counselor that requested your imaging first. Ricky Lowry [...] inhibitors documented in this encounter Care Teams Rounder Hand Relationship Specialty Start Date End Date Ana Her MD [address] [place] [address] PCP - General 07/29/13 documented as of this encounter
--- OUTSIDE RECORDS SUMMARY | 2024-06-03 10:39 | XMS_ITS | Encounter Summary ---
[place] [address] Care Team Providers Care Pigs Feet Finisher Name Role Phone Ana Her MD Primary Care Provider [phone] Encounter Details Date Type Department Care Team (Late st Contact Info) Description 02/26/2022 Orders Only [place] [address] Alicia Manning RN Social History Tobacco Use [...] on filedocumented in this encounter Care Teams Pigs Feet Finisher Relationship Specialty Start Date End Date Ana Her MD [address] [place] [address] PCP - General 07/29/13 documented as of this encounter
--- OUTSIDE RECORDS SUMMARY | 2024-06-03 10:39 | XMS_ITS | Encounter Summary ---
[place] [address] Care Team Providers Care Cook Seafood Name Role Phone Ana Her MD Primary Care Provider [phone] Reason for Visit * Reason Comments Follow-up Encounter Details Date Type Department Care Team (Late st Contact Info) Description 11/29/2019 2:45 PM EDT Office Visit Hematology [place] [phone] Ricky Lowry MD Malignant neoplasm of lower-outer [...] ??Excision with image-guided localization ?Lymph Node Sampling: ??[place] lymph node(s) ?Specimen Laterality: ??Left Tumor ?Histologic [...] ??DCIS not present in specimen Lymph Nodes ?[place] Lymph Nodes: [place] lymph node biopsy performed ?Number of [place] Nodes Examined: ??3 ?Number of Lymph Node(s) [...] positive documented in this encounter Care Teams Cook Seafood Relationship Specialty Start Date End Date Ana Her MD [address] [place] [address] PCP - General 07/29/13 documented as of this encounter
--- OUTSIDE RECORDS SUMMARY | 2024-06-03 10:39 | XMS_ITS | Encounter Summary ---
[place] [address] Care Team Providers Care Mold Mechanic Name Role Phone Ana Her MD Primary Care Provider [phone] Encounter Details Date Type Department Care Team (Late st Contact Info) Description 02/04/2022 12:00 PM EDT [place] [address] Social History Tobacco Use Types Packs/Day Years [...] filedocumented in this encounter Care Teams Mold Mechanic Relationship Specialty Start Date End Date Ana Her MD [address] [place] [address] PCP - General 07/29/13 documented as of this encounter
--- OUTSIDE RECORDS SUMMARY | 2024-06-03 10:39 | XMS_ITS | Encounter Summary ---
Author Organization [place] [address] Care Team Providers Care Billing Services Manager Name Role Phone Ana Her MD Primary Care Provider [phone] Encounter Details Date Type Department Care Team (Latest Contact Info) Description 06/11/2021 8:41 AM EST - 06/11/2021 11:59 PM [facility] Encounter Mammography/[place] [phone] Jeanine Lobato APRN [facility] [place] [address] Malignant neoplasm of lower-outer quadrant of left [...] Take 40 mg by mouth daily. omega 0-elv-wyf-fish-turm salty 417 mg-120 mg- 276 mg-600 mg [...] have questions please contact the health healthcare economics consultant that requested your imaging first. ? Jeanine Lobato TELLER SUPERVISOR IMG MAMMO ORD ERABLES documented in this encounter Visit Diagnoses Diagnosis Malignant neoplasm of lower-outer quadrant of left breast of female, estrogen receptor positive Breast cancer screening by mammogram documented in this encounter Care Teams Billing Services Manager Relationship Specialty Start Date End Date Ana Her MD [address] [place] [address] PCP - General 07/29/13 documented as of this encounter
--- OUTSIDE RECORDS SUMMARY | 2024-06-03 10:39 | XMS_ITS | Encounter Summary ---
[place] [address] Care Team Providers Care Archeologist Name Role Phone Ana Her MD Primary Care Provider [phone] Encounter Details Date Type Department Care Team (Late st Contact Info) Description 06/12/2021 Telephone [place] [address] Chelsie Lauren Social History Tobacco Use Types [...] on filedocumented in this encounter Care Teams Archeologist Relationship Specialty Start Date End Date Ana Her MD [address] [place] [address] PCP - General 07/29/13 documented as of this encounter
--- OUTSIDE RECORDS SUMMARY | 2024-06-03 10:39 | XMS_ITS | Encounter Summary ---
Author Organization [facility] [place] [address] Care Team Providers Care Tar And Ammonia Pump Operator Name Role Phone Ana Her MD Primary Care Provider Reason for Visit * Reason Comments Follow-up Encounter Details Date Type Department Care Team (Late st Contact Info) Description 10/23/2017 11:00 AM EDT Office Visit H[place]ology [place] [address] Mayra Page [address]N [facility] [place] [address] Malignant neoplasm of lower-outer quadrant of left [...] this encounter Progress Notes * Mayra Page, TRANSPORTATION OPERATIONS MANAGER - 10/23/2017 11:00 AM EDT Digna Olson [...] ??Excision with image-guided localization ?Lymph Node Sampling: ??[place] lymph node(s) ?Specimen Laterality: ??Left Tumor ?Histologic [...] ??DCIS not present in specimen Lymph Nodes ?[place] Lymph Nodes: [place] lymph node biopsy performed ?Number of [place] Nodes Examined: ??3 ?Number of Lymph Node(s) [...] scan was 10/28/16 at [facility]. There [...] positive documented in this encounter Care Teams Tar And Ammonia Pump Operator Relationship Specialty Start Date End Date Ana Her MD [address] [place] [address] PCP - General 07/29/13 documented as of this encounter
--- OUTSIDE RECORDS SUMMARY | 2024-06-03 10:39 | XMS_ITS | Encounter Summary ---
Author Organization [facility] [place] [address] Care Team Providers Care Regional Property Manager Name Role Phone Ana Her MD Primary Care Provider [phone] Encounter Details Date Type Department Care Team (Latest Contact Info) Description 01/08/2022 6:11 AM EDT - 01/08/2022 9:40 AM EDT Hospital Encounter [place] [phone] Laura Park MD [facility] [place] [address] Discharge Disposition: Home Social History Tobacco Use [...] a nurse in the Thoracic Clinic at [phone]. After hours or on weekends or holidays please call: [phone] and ask to speak to the Thoracic Physician industrial education instructor. Diet: You should follow a clear liquid [...] - 5pm): General Surgery and Bariatric Surgery [phone] Bariatric Surgeons: Drs. Park and John [phone] Photographic Equipment Technician: [phone] Dietitians: [phone] Outside of regular business hours, including weekends and holidays: Ask for General Surgery resident industrial education instructor [phone] Please note, this call will be answered [...] of left breast of female, estrogen receptor bucruzsjZ95.512, Z17.0 ??? Anemia D64.9 ??? Aortic valve [...] 6.43) performed by Malika Chen MD at [facility] MAIN OR ??? PRO INTRAOP SENTINEL LYMPH ID W/DYE INJECTION Left 03/30/2017 ?? INTRAOPERATIVE ID (MAPPING) SENTINEL LYMPH NODE,INCLUDES INJECTION (WRVU 2.5) performed by Malika Chen MD at [facility] MAIN OR ??? PRO MASTECTOMY PARTIAL Left 03/30/2017 ?? MASTECTOMY PARTIAL (WRVU 10.13) performed by Malika Chen MD at [facility] MAIN OR ?? Cholecystectomy ?? [...] Park MD - 01/08/2022 7:48 AM EDT [facility] Operative Note Patient Name: Digna Olson : [id number] MR#: [id number] Case Date: 01/08/2022 Surgeon: Surgeon(s) and Role: [...] Info Order Time SPECIMEN TO PATHOLOGY Gastric Wake for H Pylori Hiatal hernia Gastric Wake for H Pylori excision 01/08/2022 8:15 AM [...] 8:14 AM EDT Upper GI Endoscopy, Diagnostic ([id number]) Yes 01/08/2022 7:40 AM EDT Hiatal hernia [...] PATHOLOGY/CYTOLOGY ORDERABLES [facility] [place] [address] * Surgical Pathology Report (01/08/2022 8:14 AM EDT) Final Diagnosis [id number] ? Location: [facility]; [facility]; A The signing pathologist has (i) examined the relevant preparation(s) for the specimen(s) and (ii) rendered or confirmed the diagnosis(es). . ?Surgical Pathology DIAGNOSIS A - Gastric ??Antrum for H Pylori, excision: - ??Antrum-type mucosa with reactive gastropathy. Electronically signed by: ?Umang Raymundo MD Verified: ??01/09/2022 16:36 ??Pathologist Performed at: ??-[facility] Dept. of Pathology, [place], [place] SPECIMEN(S) SUBMITTED A - Gastric ??Antrum [...] EDT Laura Park MD PATHOLOGY/CYTOLOGY ORDERABLES [facility] [place] [address] * POCT Glucose (01/08/2022 6:33 AM EDT) Glucose, POC 120 65 - 199 mg/dL [facility] Comment: Supplemental ranges: <140 mg/dL before meals <180 mg/dL all other times of the day Blood 01/08/2022 6:33 AM EDT 01/08/2022 6:33 AM EDT Laura Park MD POINT [place] [address] documented in this encounter Visit Diagnoses Not on filedocumented in this encounter Active and Recently Administered Medications Care Teams Regional Property Manager Relationship Specialty Start Date End Date Ana Her MD [address] [place] [address] PCP - General 07/29/13 documented as of this encounter
--- OUTSIDE RECORDS SUMMARY | 2024-06-03 10:39 | XMS_ITS | Encounter Summary ---
[place] [address] Care Team Providers Care Ledger Clerk Name Role Phone Ana Her MD Primary Care Provider [phone] Reason for Visit * Auth/Cert Specialty Diagnoses / Procedures Referred By Christiano hackett Referred To Contact Diagnoses S/P repair of paraesophageal hernia Post-Op monitoring Procedures PRO LAPARSCOPY REPAIR PARAESOPHAGEAL HERNIA INCL FUNDOPLASTY W/O MESH LAPAROSCOPIC PARAESOPHAGEAL HERNIA REPAIR W/FUNDOPLASTY, W/O MESH (WRVU 26.6) MODIFIER TOUPET FUNDOPLASTY Shania Will MD [facility] [place] [address] [facility] Referral ID Status Reason Start Date Expiration Date Visits Re quested Visits Authorized [id number] 1 1 Encounter Details Date Type Department Care Team (Late st Contact Info) Description 03/05/2022 12:54 PM EDT - 03/05/2022 4:55 PM EDT Surgery [place] [phone] Shania Will MD [facility] [place] [address] LAPAROSCOPIC PARAESOPHAGEAL HERNIA REPAIR W/FUNDOPLASTY, W/O MESH [...] of left breast of female, estrogen receptor ypnwbwxpW54.512, Z17.0 ??? Anemia D64.9 ??? Aortic valve [...] Per chart review, her creatinine levels in [id number] ranged from 0.87-1.50 indicative of possible undiagnosed [...] Shania Will MD General Surgery at [facility] Arrive at: [facility] [phone] Instructions Given to Patient at Discharge: Patient [...] hours please call the Surgery Clinic at [phone] before 5 PM on weekdays. For questions after hours and on weekends please call the hospital gang ripsaw operator at [phone] and ask for the General Surgery resident fashion editor. They may not be familiar with your [...] Sly diet, as instructed by the data processing mechanic in the hospital for a period of [...] renal function. Please call the clinic at [phone] to confirm or reschedule. Future Appointments Date Time Provider Department Center 04/03/2022 12:00 PM Shania Will MD [facility] SURG [facility] General Instructions None Future Appointments and Orders Future Appointments and Orders Future Appointments Provider Department Dept Phone 04/03/2022 12:00 PM Shania Will MD General Surgery at [facility] Arrive at: [facility] 4L [phone] Signed: Shena Harden MD 03/07/22 7:18 AM [phone] Saima Physician: MD Geovany David [facility] [id number] documented in this encounter Discharge Instructions * [...] hours please call the Surgery Clinic at [phone] before 5 PM on weekdays. For questions after hours and on weekends please call the hospital gang ripsaw operator at [phone] and ask for the General Surgery resident fashion editor. They may not be familiar with your [...] Sly diet, as instructed by the data processing mechanic in the hospital for a period of [...] renal function. Please call the clinic at [phone] to confirm or reschedule. Future Appointments Date Time Provider Department Center 04/03/2022 12:00 PM Shania Will MD [facility] SURG [facility] documented in this [...] Ocampo RN - 03/07/2022 10:25 AM EDT [facility] Short Stay Unit Discharge Note All relevant [...] Sly Diet Education to pt Digna Olson. Card Room Manager metwith pt at bedside to deliver [...] she is noticing some overall improvement post op.Card Room Manager took note of this and encouraged [...] Department contact information provided. Pt appreciate of specification writer's time. Nutrition to follow as [...] Perez MD 03/05/2022 Minimally Invasive Surgery Pager #[phone] * Lorrie Slater RN - 03/05/2022 6:46 [...] of left breast of female, estrogen receptor ksrkorruN84.512, Z17.0 ??? Anemia D64.9 ??? Aortic valve [...] 6.43) performed by Malika Chen MD at [facility] MAIN OR ??? PRO INTRAOP SENTINEL LYMPH ID W/DYE INJECTION Left 03/30/2017 ?? INTRAOPERATIVE ID (MAPPING) SENTINEL LYMPH NODE,INCLUDES INJECTION (WRVU 2.5) performed by Malika Chen MD at [facility] MAIN OR ??? PRO MASTECTOMY PARTIAL Left 03/30/2017 ?? MASTECTOMY PARTIAL (WRVU 10.13) performed by Malika Chen MD at [facility] MAIN OR ?? Cholecystectomy ?? Medications: ?? [...] Operative Note Patient Name: Digna Olson : [id number] MR#: [id number] Case Date: 03/05/2022 Surgeon: Surgeon(s) and Role: [...] MD - 03/05/2022 2:32 PM EDT [facility] Operative Note Patient Name: Digna Olson : [id number] MR#: [id number] Case Date: 03/05/2022 Surgeon: Surgeon(s) and Role: [...] need to include opening and closing). Jennifer Flroes MD 03/05/2022 documented in this encounter Plan [...] Repair Paraesophageal Hernia Incl Fundoplasty W/O Mesh ([id number]) 03/05/2022 1:58 PM EDT Paraesophageal Hernia POCT GLUCOSE Routine 03/05/2022 12:18 PM EDT LAPAROSCOPIC PARAESOPHAGEAL HERNIA REPAIR W FUNDOPLASTY, W/O MESH Routine 03/05/2022 12:02 PM EDT documented in this encounter Results * (ABNORMAL) Differential, Automated (03/07/2022 5:08 AM EDT) Neutrophil % 80.0 % [facility] Neutrophil Absolute 5.30 1.70 - 6.10 x10(3)/mc L [facility] Lymph % 12.1 % [facility] Lymphocytes Abs 0.8(L) 0.9 - 3.2 x10(3)/mc L [facility] Monocyte % 7.6 % [facility] Monocyte Abs 0.5 0.3 - 0.9 x10(3)/mc L [facility] Eos % 0.0 % NORTH [...] HEMATOLOGY ORDERABLE S [facility] [place] [address] * (ABNORMAL) Hemogram (03/07/2022 5:08 AM EDT) [...] Platelet 110(L) 145 - 357 x10(3)/mc L [facility] RDW Standard Deviation 47.5(H) 37.0 - 46.0 [facility] RDW coefficient of variation 12.9 11.5 - 14.1 % [facility] Mean Platelet Volume 11.7 7.6 - 12.9 [facility] NRBC% auto 0.0 % [facility] NRBC Absolute 0.000 0.000 - 0.000 x10(3)/mc L [facility] Blood 03/07/2022 5:08 AM EDT 03/07/2022 5:19 AM EDT Narrative Resulting Agency Comment Spec In Lab Nino Levy MD HEMATOLOGY ORDERABLE S Performing Organization Address City/[facility]/[place] [address] * Phosphorus (03/07/2022 5:08 AM EDT) Phosphorus 2.7 2.5 - 4.5 mg/dL [facility] Blood 03/07/2022 5:08 AM EDT 03/07/2022 5:19 AM EDT Narrative Resulting Agency Comment Spec In Lab Shania Will MD CHEMISTRY ORDERABLE S Performing Organization Address [facility]/ZIP Co de Phone Number [facility] [place] [address] * Magnesium (03/07/2022 5:08 AM EDT) Magnesium 0.89 0.69 - 1.07 mmol/L [facility] Blood 03/07/2022 5:08 AM EDT 03/07/2022 5:19 AM EDT Narrative Resulting Agency Comment Spec In Lab Shania Will MD CHEMISTRY ORDERABLE S [facility] [place] [address] * (ABNORMAL) Basic Metabolic Panel (non-fasting) (03/07/2022 [...] MD CHEMISTRY ORDERABLE S Performing Organization Address City/[facility]/ZIP Co de Phone Number [facility] [place] [address] * (ABNORMAL) Differential, Automated (03/06/2022 10:15 AM EDT) Neutrophil % 90.7 % [facility] Neutrophil Absolute 5.79 1.70 - 6.10 x10(3)/mc L [facility] Lymph % 5.0 % [facility] Lymphocytes Abs 0.3(L) 0.9 - 3.2 x10(3)/mc L [facility] Monocyte % 3.8 % [facility] Monocyte Abs 0.2(L) 0.3 - 0.9 x10(3)/mc L [facility] Eos % 0.0 % NORTH [...] Absolute 0.03 0.00 - 0.04 x10(3)/mc L [facility] Blood 03/06/2022 10:1 5 AM EDT 03/06/2022 10:21 AM EDT Narrative Resulting Agency Comment Spec In Lab Maryam MUELLER HEMATOLOGY ORDERABL ES Performing Organization Address [facility]/ZIP Co de Phone Number [facility] [place] [address] * (ABNORMAL) Hemogram (03/06/2022 10:15 AM EDT) [...] Standard Deviation 47.2(H) 37.0 - 46.0 [facility] RDW coefficient of variation 12.9 11.5 - 14.1 % [facility] Mean Platelet Volume 11.5 7.6 - 12.9 [facility]AT[facility] NRBC% auto 0.0 % [facility] NRBC Absolute 0.000 0.000 - 0.000 x10(3)/ L [facility] Blood 03/06/2022 10:1 5 AM EDT 03/06/2022 10:21 AM EDT Narrative Resulting Agency Comment Spec In Lab Maryam MUELLER HEMATOLOGY ORDERABL ES [facility] [place] [address] * Phosphorus (03/06/2022 10:15 AM EDT) Phosphorus 3.3 2.5 - 4.5 mg/dL [facility] Blood 03/06/2022 10:1 5 AM EDT 03/06/2022 10:21 AM EDT Narrative Resulting Agency Comment Spec In Lab Shania Will MD CHEMISTRY ORDERABLE S [facility] [place] [address] * Magnesium (03/06/2022 10:15 AM EDT) Magnesium 0.69 0.69 - 1.07 mmol/L [facility] Blood 03/06/2022 10:1 5 AM EDT 03/06/2022 10:21 AM EDT Narrative Resulting Agency Comment Spec In Lab Shania Will MD CHEMISTRY ORDERABLE S Performing Organization Address City/[facility]/ZIP Co de Phone Number [facility] [place] [address] * (ABNORMAL) Basic Metabolic Panel (non-fasting) (03/06/2022 10:15 AM EDT) Glucose 155 65 - 199 mg/dL [facility] [...] MD CHEMISTRY ORDERABLE S Performing Organization Address City/State/[facility] Co de Phone Number [facility] [place] [address] * (ABNORMAL) Differential, Automated (03/06/2022 4:29 AM EDT) Neutrophil % 90.5 % [facility] Neutrophil Absolute 4.47 1.70 - 6.10 x10(3)/mc L [facility] Lymph % 6.9 % [facility] Lymphocytes Abs 0.3(L) 0.9 - 3.2 x10(3)/mc L [facility] Monocyte % 2.2 % [facility] Monocyte Abs 0.1(L) 0.3 - 0.9 x10(3)/mc L [facility] Eos % 0.0 % [facility] Eosinophils Abs 0.0 0.0 - 0.4 x10(3)/mc L [facility] Basophil % 0.2 % [facility] [...] HEMATOLOGY ORDERABLE S [facility] [place] [address] * (ABNORMAL) Hemogram (03/06/2022 4:29 AM EDT) [...] HEMATOLOGY ORDERABLE S [facility] [place] [address] * (ABNORMAL) Basic Metabolic Panel (non-fasting) (03/06/2022 [...] MD CHEMISTRY ORDERABLE S Performing Organization Address City/[facility]/ZIP Co de Phone Number [facility] [place] [address] * POCT Glucose (03/05/2022 12:18 PM EDT) Glucose, POC 94 65 - 199 mg/dL [facility] Comment: Supplemental ranges: <140 mg/dL before meals <180 mg/dL all other times of the day Blood 03/05/2022 12:1 8 PM EDT 03/05/2022 12:18 PM EDT Shania Will MD POINT OF CARE TEST ORDERABLES Performing Organization Address [facility]/ZIP Co de Phone Number [facility] [place] [address] documented in this encounter Visit Diagnoses Not [...] Unit) documented in this encounter Care Teams Ledger Clerk Relationship Specialty Start Date End Date Ana Her MD [address] [facility] [address] [place] [address] PCP - General 07/29/13 documented as of this encounter
--- OUTSIDE RECORDS SUMMARY | 2024-06-03 10:40 | XMS_ITS | Encounter Summary ---
[place] [address] Care Team Providers Care Residential Roofer Helper Name Role Phone Ana Her MD Primary Care Provider [phone] Encounter Details Date Type Department Care Team (Latest Contact Info) Description 03/03/2017 7:55 AM EDT Laboratory Appointment Lab [address] [place] [address] Malignant neoplasm of left breast in female, [...] Absolute 6.45(H) 1.70 - 6.10 x10(3)/mc L [facility] Lymph % 14.4 % [facility] Lymphocytes Abs 1.3 0.9 - 3.2 x10(3)/ L [facility] Monocyte % 5.6 % [facility] Monocyte Abs 0.5 0.3 - 0.9 x10(3)/ L [facility] Eos % 6.1 % [facility] Eosinophils Abs 0.5(H) 0.0 - 0.4 x10(3)/ L [facility] Basophil % 0.6 % [facility] Baso Absolute 0.0 [...] Absolute 0.04 0.00 - 0.04 x10(3)/mc L [facility] Blood specimen (specimen) 03/03/2017 7:50 AM EDT 03/03/2017 8:03 AM EDT Narrative Resulting Agency Comment Spec In Lab Malika Chen MD HEMATOLOGY ORDERABL ES [facility] [place] [address] * (ABNORMAL) Hemogram (03/03/2017 7:50 AM EDT) White Blood Cell 8.8 4.0 - 9.5 x10(3)/mc L [facility] Red Blood Cell 3.80(L) 4.00 - 5.21 x10(6)/mc L [facility] Hemoglobin 12.3 11.7 - 15.5 gm/dL [facility] Hematocrit 36.3 35.7 - 45.8 % [facility] Mean Cell Volume 95.5(H) 82.6 - 94.4 fL [facility] Mean Cell Hemoglobin 32.4(H) 27.1 - 32.0 pg [facility] Mean Cell Hemoglobin Concentration 33.9 31.7 - 35.0 gm/dL [facility] Platelet 156 145 - 357 x10(3)/ L [facility] RDW Standard Deviation 48.3(H) 37.0 - 46.0 [facility] RDW coefficient of variation 13.9 11.5 - 14.1 % [facility] Mean Platelet Volume 11.9 7.6 - 12.9 fL [facility] NRBC% auto 0.0 % [facility] NRBC Absolute 0.000 0.000 - 0.000 x10(3)/ L [facility] Blood specimen (specimen) 03/03/2017 7:50 AM EDT 03/03/2017 8:03 AM EDT Narrative Resulting Agency Comment Spec In Lab Malika Chen MD HEMATOLOGY ORDERABL ES [facility] [place] [address] * (ABNORMAL) Comprehensive metabolic panel (non-fasting) (03/03/2017 7:50 AM EDT) Glucose 139 65 - 199 mg/dL [facility] Comment:Diabetes: >=200 mg/d L plus symptoms Blood Urea Nitrogen 20(H) 8 - 18 mg/dL [facility] Creatinine 0.95 0.70 - 1.20 mg/dL [facility] Sodium 141 135 - 145 mmol/L [facility] [...] 107 mmol/L [facility] Carbon Dioxide 26 22 - 31 mmol/L [facility] Anion Gap 14 5 - 15 mmol/L [facility] Calcium 9.3 8.5 - 10.5 mg/dL [facility] Protein, Total 6.9 6.1 - 8.0 gm/dL [facility] Albumin 4.2 3.2 - 5.2 gm/dL [facility] Aspartate Aminotransferase 17 0 - 30 unit/L [facility] Alanine Aminotransferase 16 0 - 30 unit/L [facility] Alkaline Phosphatase 75 40 - 104 unit/L [facility] Bilirubin, Total 0.5 0.2 - 1.3 mg/dL [facility] Est Glomerular Filtration Rate 58(L) >=60 [facility] Comment: The reported eGFR should be multiplied by 1.2 for patients. The MDRD is not an appropriate measure of renal function for patients with body mass extremes or in patients with acute kidney failure. http://[employer]/DHnkdep http://[employer].com/DHMCnkf Blood specimen (specimen) 03/03/2017 7:50 AM EDT 03/03/2017 8:03 AM EDT Narrative Resulting Agency Comment Spec In Lab Malika Chen [place] [address] documented in this encounter Visit Diagnoses Diagnosis Malignant neoplasm of left breast in female, estrogen receptor positive, unspecified site of breast documented in this encounter Care Teams Residential Roofer Helper Relationship Specialty Start Date End Date Ana Her MD [address] [place] [address] PCP - General 07/29/13 documented as of this encounter
--- OUTSIDE RECORDS SUMMARY | 2024-06-03 10:40 | XMS_ITS | Encounter Summary ---
[place] [address] Care Team Providers Care Marketing Trainee Name Role Phone Ana Her MD Primary Care Provider [phone] Reason for Visit * Reason Comments Establish Care * Consultation (Routine) - Specialty Diagnoses / Procedures Referred By Christiano hackett Referred To Contact Hematology and Oncology Diagnoses Other abnormal and inconclusive findings on diagnostic imaging of breast abnormal mammo, left breast Jackie Cisneros, WENDY [address] [place] [address] [facility] [place] [address] [place] [address] Referral ID Status Reason Start Date Expiration Date V isits Requested Visits Authorized [id number] Consult, Test & Treat Connection Center 02/17/2017 05/20/2017 6 6 Encounter Details Date Type Department Care Team (Late st Contact Info) Description 03/03/2017 9:00 AM EDT Office [place] [address] Malika Chen MD [facility] [place] [address] Argentina Sanchez, RN Malignant neoplasm [...] Exercises handout created by physical therapists at [facility]. 7. Breast Cancer Treatment Process care map provided and reviewed. 8. Things to Consider...What I Wish I Knew advice from breast cancer patients handout provided. She verbalized understanding of the plan of care and states all her questions were answered. Twentyminutes was spent in education and providing support. Alma Delia has our contact information. She will call the ophthalmology surgical technician to schedule surgery after she [...] was obtained which revealed IDC which is ER/SC+, her2-. She has no known breast masses, no adenopathy, no nipple discharge. Alma Delia had a bone scan in [place] which was read as possible metastasis in the left tibia. Of note- she fractured this area recently. She has recovered well. PMH HNT NIDDM not on meds Spinal stenosis Fractured left tibial plateau December, GERD FH: Maternal first cousin with breast cancer Brother with rectal cancer Sister with PE SH: lives alone. Has good support from sisters who live in [place]. Non smoker. Has a son who lives [...] 71 yo female with radiographic stage I ER/SC+, HER2- IDC of the left breast. No [...] positive documented in this encounter Care Teams Marketing Trainee Relationship Specialty Start Date End Date Ana Her MD [address] [place] [address] PCP - General 07/29/13 documented as of this encounter
--- OUTSIDE RECORDS SUMMARY | 2024-06-03 10:40 | XMS_ITS | Encounter Summary ---
Author Organization [facility] [place] [address] Care Team Providers Care Machine Cutter Name Role Phone Ana Her MD Primary Care Provider [phone] Encounter Details Date Type Department Care Team (Late st Contact Info) Description 03/19/2017 Telephone [place] [address] Malika Chen MD [facility] [place] [address] Social History Tobacco Use Types Packs/Day Years [...] no unexpected bleeding. Surgery is scheduled in [facility]. documented in this encounter Plan of Treatment Not on file documented as of this encounter Visit Diagnoses Not on filedocumented in this encounter Care Teams Machine Cutter Relationship Specialty Start Date End Date Ana Her MD [address] [facility] [address] [place] [address] PCP - General 07/29/13 documented as of this encounter
--- OUTSIDE RECORDS SUMMARY | 2024-06-03 10:40 | XMS_ITS | Encounter Summary ---
Author Organization [facility] [place] [address] Care Team Providers Care Radio Repairer Name Role Phone Ana Her MD Primary Care Provider [phone] Encounter Details Date Type Department Care Team (Latest Contact Info) Description 02/25/2017 1:36 PM EDT - 02/25/2017 2:58 PM EDT Hospital [place] [phone] Maryam Yee MD [facility] [place] [address] Abnormal mammogram Discharge Disposition: Home Social History [...] unspecified documented in this encounter Care Teams Radio Repairer Relationship Specialty Start Date End Date Ana Her MD [address] [place] [address] [address] [place] [address] PCP - General 07/29/13 documented as of this encounter
--- OUTSIDE RECORDS SUMMARY | 2024-06-03 10:40 | XMS_ITS | Encounter Summary ---
Author Organization [facility] [address] Care Team Providers Care Senior Radiation Therapist Name Role Phone Ana Her MD Primary Care Provider [phone] Encounter Details Date Type Department Care Team (Latest Contact Info) Description 02/25/2017 2:59 PM EDT - 02/25/2017 11:59 PM EDT Hospital En[place] [phone] Enzo Burkett MD Abnormal finding on breast [...] Report (02/25/2017 3:01 PM EDT) Final Diagnosis [id number] ? Location: 3L The signing pathologist has [...] FISH. ??Direct analysis was performed using the [employer] Media Kit. ??Slide adequacy and signal enumeration were [...] factor receptor 2 testing in breast cancer: [place] Society of Clinical Oncology/College of Finnish Pathologists clinical practice guideline update. J Clin Oncol. 2013 Nov . Reviewed by: Kyara Logan MD Microstrategy Architect, Molecular Pathology _ Electronically signed by: ??Epifanio Serra MD Verified: ??03/04/2017 ?Pathologist Performed at: ??-[facility] Dept. of [place]ology, [place], [place] ? Addendum ADDENDUM DISCUSSION Immunohistochemist ry Studies Specimen: Left breast, core needle biopsy (A1) ER immunoreactivity: Positive ( ??>90% cancer cells with immunostaining) Stain intensity: Strong . ADDENDUM DISCUSSION WY immunoreactivity: Positive ( ??>90% cancer cells with [...] The assays were performed according to the automation software engineer ' s instructions using Anti-ER (SP1) and Anti-WY (16) antibodies. Electronically signed by: ??Epifanio Serra MD Verified: ??02/27/2017 ?Pathologist Performed at: ??-[facility] Dept. 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 of Pathology, [place], [place] DISCUSSION Studies for ER, WY, and HER2 have been ordered; results will [...] PATHOLOGY/CYTOLOGY O RDERABLES [facility] [place] [address] documented in this encounter Visit Diagnoses Diagnosis Abnormal finding on breast imaging Other (abnormal) findings on radiological examination of breast documented in this encounter Care Teams Senior Radiation Therapist Relationship Specialty Start Date End Date Ana Her MD [address] [place] [address] PCP - General 07/29/13 documented as of this encounter
--- OUTSIDE RECORDS SUMMARY | 2024-06-03 10:40 | XMS_ITS | Encounter Summary ---
[place] [address] Care Team Providers Care Equipment Washer Name Role Phone Ana Her MD Primary Care Provider [phone] Reason for Visit * Reason Comments Low Back Pain Encounter Details Date Type Department Care Team (Late st Contact Info) Description 08/30/2014 8:35 AM EDT Office [place] [phone] Michelle Hurtado APRN [facility] [place] [address] Neurogenic claudication due to lumbar spinal stenosis [...] this encounter Progress Notes * Michelle Hurtado, ASSOCIATE PRODUCER - 08/30/2014 9:37 AM EDT CHIEF COMPLAINT: [...] Treatments to date have included: LESIs in [place] at L4-5 in 2013-no relief, Flexeril-helpful, physical [...] 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 MEDICATIONS [...] care of this patient. Michelle Hurtado MS, ASSOCIATE PRODUCER, BED PLACEMENT COORDINATOR-C [facility] documented in this encounter Plan of Treatment Not on file documented as of this encounter Visit Diagnoses Diagnosis Neurogenic claudication due to lumbar spinal stenosis Spinal stenosis, lumbar region, with neurogenic claudication documented in this encounter Care Teams Equipment Washer Relationship Specialty Start Date End Date Ana Her MD [address] [place] [address] PCP - General 07/29/13 documented as of this encounter
--- OUTSIDE RECORDS SUMMARY | 2024-06-03 10:40 | XMS_ITS | Encounter Summary ---
Author Organization [facility] [place] [address] Care Team Providers Care Senior Web Engineer Name Role Phone Ana Her MD Primary Care Provider [phone] Reason for Visit * Reason Comments Follow Up Surgery Encounter Details Date Type Department Care Team (Late st Contact Info) Description 07/13/2017 1:30 PM EDT Office Visit [place] [phone] Hiral Padgett, WENDY History of breast cancer [...] with image-guided localization ?Lymph Node Sampling: ?? [place] lymph node(s) ?Specimen Laterality: ?? Left Tumor [...] ?DCIS not present in specimen Lymph Nodes ?[place] Lymph Nodes: ?? [place] lymph node biopsy performed ?Number of [place] Nodes Examined: ?3 ?Number of Lymph Node(s) [...] documented in this encounter Care Teams Senior Web Engineer Relationship Specialty Start Date End Date Ana Her MD [facility] [address] [place] [address] PCP - General 07/29/13 documented as of this encounter
--- OUTSIDE RECORDS SUMMARY | 2024-06-03 10:40 | XMS_ITS | Encounter Summary ---
Author Organization [facility] [place] [address] Care Team Providers Care Cottrell Operator Name Role Phone Ana Her MD Primary Care Provider [phone] Encounter Details Date Type Department Care Team (Late st Contact Info) Description 03/03/2017 [place] [address] January Ward MSW Social History Tobacco Use Types Packs/Day Years Used Date Smoking Tobacco: Never Smokeless Tobacco: Never Sex and Gender Information Value Date Recorded Sex Assigned at Not on file Gender Identity Not on file Sexual Orientation Not on file documented as of this encounter Progress Notes * January Ward MSW - 03/03/2017 12:56 PM EDT OFFICE OF CARE MANAGEMENT/CONTINUING QUARTER SECTION IRONER Reason for referral: Digna Olson is a 71 year old, female who was seen in the multidisciplinarybreast care clinic for a surgical consult as she was recently diagnosed with ER/LA+, left breast, invasive mucinous carcinoma. After meeting with Dr. Chen, pt has decided to have a lumpectomy/SLNB. If pt needs radiation therapy, she will receive it at the [facility]. [facility] met with pt to complete a psychosocial assessment and to explain my role in the breast program. Pt was encouraged to contact me if she has any questions or concerns. Living arrangements/social supports: Pt lives alone in [place], [place]. She has support from her family and is accompanied to today's appt by her sisters who live in [place]. Employment/Insurance/Finances: Pt is retired and receives Social [...] Antonia Oliva is the SW for the [facility]. Plan: [facility] will continue to follow pt to assess and assist with their psychosocial needs. DELONTE Moreno [facility]/[place] [phone] Pager #[phone] documented in this encounter Plan of Treatment Not on file documented as of this encounter Visit Diagnoses Not on filedocumented in this encounter Care Teams Cottrell Operator Relationship Specialty Start Date End Date Ana Her MD [address] [place] [address] PCP - General 07/29/13 documented as of this encounter
--- OUTSIDE RECORDS SUMMARY | 2024-06-03 10:40 | XMS_ITS | Encounter Summary ---
Author Organization [facility] [place] [address] Care Team Providers Care Meal Attendant Name Role Phone Ana Her MD Primary Care Provider [phone] Encounter Details Date Type Department Care Team (Latest Contact Info) Description 03/30/2017 8:30 AM [facility] Hospital Encounter [place] [address] Malika Chen MD [facility] [place] [address] Malignant neoplasm of upper-outer quadrant of left [...] documented in this encounter Results * Mammo Donalds Node Injection (03/30/2017 9:01 AM EST) Anatomical [...] mCi documented in this encounter Care Teams Meal Attendant Relationship Specialty Start Date End Date Ana Her MD [address] [place] [address] PCP - General 07/29/13 documented as of this encounter
--- OUTSIDE RECORDS SUMMARY | 2024-06-03 10:40 | XMS_ITS | Encounter Summary ---
[place] [address] Care Team Providers Care Epoxy Specialist Name Role Phone Ana Her MD Primary Care Provider [phone] Reason for Visit * Reason Comments Schedule Office Case Encounter Details Date Type Department Care Team (Late st Contact Info) Description 04/23/2017 2:00 PM EST Office Visit Hematology [place] [phone] Ricky Lowry MD Malignant neoplasm of lower-outer [...] ??Excision with image-guided localization ?Lymph Node Sampling: ??[place] lymph node(s) ?Specimen Laterality: ??Left Tumor ?Histologic [...] ??DCIS not present in specimen Lymph Nodes ?[place] Lymph Nodes: [place] lymph node biopsy performed ?Number of [place] Nodes Examined: ??3 ?Number of Lymph Node(s) [...] was in this year at [facility]. There is no history of [...] Date Ana Her MD [address] [place] [address] PCP - General 07/29/13 documented as of this encounter
--- OUTSIDE RECORDS SUMMARY | 2024-06-03 10:40 | XMS_ITS | Encounter Summary ---
Author Organization [facility] [place] [address] Care Team Providers Care Molder Name Role Phone Ana Her MD Primary Care Provider [phone] Encounter Details Date Type Department Care Team (Late st Contact Info) Description 04/23/2017 Notes [place] [address] Marjorie Ariza Social History Tobacco Use Types [...] Marjorie Ariza - 04/23/2017 2:43 PM EST Vulcanized Fiber Unit Operator Consulting Technical Director met with pt after consultation with [...] on filedocumented in this encounter Care Teams Molder Relationship Specialty Start Date End Date Ana Her MD [address] [facility] [address] [place] [address] PCP - General 07/29/13 documented as of this encounter
--- OUTSIDE RECORDS SUMMARY | 2024-06-03 10:40 | XMS_ITS | Encounter Summary ---
[place] [address] Care Team Providers Care Fleet Service Clerk Name Role Phone Ana Her MD Primary Care Provider [phone] Encounter Details Date Type Department Care Team (Late st Contact Info) Description 02/27/2017 Telephone [place]ematology [place] [phone] Argentina Sanchez RN Social History Tobacco Use [...] a 71 y.o. female with newly diagnosed ER/ND+/HER2 corey pending left breast invasive mucinous cancer ([place] breast [place] [facility] Alma Delia sounds positive and has support. She will have someone accompany her to appointments. She appears to be coping well but is anxious to meet with a breast surgeon to determine a treatment plan. Alma Delia have a bone SPECT done 1-2 months ago at [facility] and her doctor there questioned an [...] for her review (a link to the [facility] Early Stage Breast Cancer program). [...] on filedocumented in this encounter Care Teams Fleet Service Clerk Relationship Specialty Start Date End Date Ana Her MD [address] [place] [address] PCP - General 07/29/13 documented as of this encounter
--- OUTSIDE RECORDS SUMMARY | 2024-06-03 10:40 | XMS_ITS | Encounter Summary ---
Author Organization [facility] [place] [address] Care Team Providers Care Home Therapy Clinician Name Role Phone Ana Her MD Primary Care Provider [phone] Encounter Details Date Type Department Care Team (Latest Contact Info) Description 03/30/2017 8:30 AM [facility] Hospital [place] [address] Malika Chen MD [facility] [place] [address] Malignant neoplasm of upper-outer quadrant of left [...] documented in this encounter Care Teams Home Therapy Clinician Relationship Specialty Start Date End Date Ana Her MD [address] [place] [address] PCP - General 07/29/13 documented as of this encounter
--- OUTSIDE RECORDS SUMMARY | 2024-06-03 10:40 | XMS_ITS | Encounter Summary ---
[place] [address] Care Team Providers Care Partition Assembly Machine Operator Name Role Phone Ana Her MD Primary Care Provider [phone] Encounter Details Date Type Department Care Team (Late st Contact Info) Description 03/30/2017 11:19 AM EST Anesthesia Event [place] [address] Bridgette Mclaughlin MD Collins, Sarah J, ELECTRONICS MAINTENANCE TECHNICIAN [address] [place] [address] Anesthesia Record Procedure Summary Procedure Name Responsible [...] 0815; median cubital vein (antecubital fossa), right; [id number] catheter system; 20 gauge, 1 in length; [...] Bridgette Mclaughlin - 03/30/2017 2:13 PM EST [facility] Department of Anesthesiology Post-procedure Note Patient: Digna [...] All Anesthesia Providers: Anesthesiologist: Bridgette Mclaughlin MD ELECTRONICS MAINTENANCE TECHNICIAN: Laura Koo CRNA Most Recent Vitals: 03/30/17 [...] risks discussed with patient. Plan discussed with ELECTRONICS MAINTENANCE TECHNICIAN. [facility] Staff Note documented in this [...] r documented in this encounter Care Teams Partition Assembly Machine Operator Relationship Specialty Start Date End Date Ana Her MD [facility] [address] [place] [address] PCP - General 07/29/13 documented as of this encounter
--- OUTSIDE RECORDS SUMMARY | 2024-06-03 10:40 | XMS_ITS | Encounter Summary ---
Author Organization [facility] [place] [address] Care Team Providers Care Civilian Technician Name Role Phone Ana Her MD Primary Care Provider [phone] Encounter Details Date Type Department Care Team (Latest Contact Info) Description 02/25/2017 1:32 PM EDT - 02/25/2017 1:35 PM EDT Hospital Encounter [place] [address] Maryam Yee MD [facility] [place] [address] Abnormal mammogram Discharge Disposition: Home Social History [...] MD PATHOLOGY/CYTOLOGY O [facility] [place] [address] documented in this encounter Visit Diagnoses Diagnosis [...] mg documented in this encounter Care Teams Civilian Technician Relationship Specialty Start Date End Date Ana Her MD [address] [place] [address] PCP - General 07/29/13 documented as of this encounter
--- OUTSIDE RECORDS SUMMARY | 2024-06-03 10:40 | XMS_ITS | Encounter Summary ---
Author Organization [facility] Address [facility] [place] [address] Care Team Providers Care Eligibility Specialist Name Role Phone Ana Her MD Primary Care Provider [phone] Encounter Details Date Type Department Care Team (Latest Contact Info) Description 04/24/2014 - 04/24/2014 11:59 PM EST Hospital Encounter Radiology Library at [facility] [place] [address] Maryam Yee MD [facility] [place] [address] Screening breast examination Discharge Disposition: Home Social [...] Mammo (04/24/2014 12:00 AM EST) Narrative [facility] - 02/19/2017 1:46 PM EDT This exam is for storage only and is auto-finalizing. Maryam Yee MD IMG FILM LIBRARY O RDERABLES [place], [place] documented in this encounter Visit Diagnoses Diagnosis Screening breast examination Other screening breast examination documented in this encounter Care Teams Eligibility Specialist Relationship Specialty Start Date End Date Ana Her MD [address] [facility] 1 [place] [address] PCP - General 07/29/13 documented as of this encounter
--- OUTSIDE RECORDS SUMMARY | 2024-06-03 10:40 | XMS_ITS | Encounter Summary ---
Author Organization [facility] Address [facility] [place] [address] Care Team Providers Care Chimney Construction Supervisor Name Role Phone Ana Her MD Primary Care Provider [phone] Encounter Details Date Type Department Care Team (Latest Contact Info) Description 02/12/2017 - 02/12/2017 11:59 PM EDT Hospital Encounter Radiology Library at [facility] [place] [address] Maryam Yee MD [facility] [place] [address] Screening breast examination Discharge Disposition: Home Social [...] Only Mammo (02/12/2017 12:00 AM EDT) Narrative [facility] - 02/19/2017 1:47 PM EDT This exam is for storage only and is auto-finalizing. Maryam Yee MD IMG FILM LIBRARY O RDERABLES Performing Organization Address City/State/[facility] Co de Phone Number [place], [place] documented in this encounter Visit Diagnoses Diagnosis Screening breast examination Other screening breast examination documented in this encounter Care Teams Chimney Construction Supervisor Relationship Specialty Start Date End Date Ana Her MD [address] [place] [address] PCP - General 07/29/13 documented as of this encounter
--- OUTSIDE RECORDS SUMMARY | 2024-06-03 10:40 | XMS_ITS | Encounter Summary ---
Author Organization [place] [address] Care Team Providers Care Vp Product Marketing Name Role Phone Ana Her MD Primary Care Provider [phone] Encounter Details Date Type Department Care Team (Latest Contact Info) Description 02/25/2017 1:31 PM EDT Hospital Encounter [place] [address] Maryam Yee MD [facility] [place] [address] Abnormal mammogram Discharge Disposition: Home Social History [...] unspecified documented in this encounter Care Teams Vp Product Marketing Relationship Specialty Start Date End Date Ana Her MD [address] [place] [address] PCP - General 07/29/13 documented as of this encounter
--- OUTSIDE RECORDS SUMMARY | 2024-06-03 10:40 | XMS_ITS | Encounter Summary ---
Author Organization [facility] Address [facility] [place] [address] Care Team Providers Care Neonatal Social Worker Name Role Phone Ana Her MD Primary Care Provider [phone] Encounter Details Date Type Department Care Team (Latest Contact Info) Description 10/28/2016 - 10/28/2016 11:59 PM EDT Hospital Encounter Radiology Library [place] [facility] [place] [address] Ricky Lowry MD Discharge Disposition: Home Social [...] DXA Images (10/28/2016 12:00 AM EDT) Narrative [facility] - 04/24/2017 2:13 PM EST This exam is for storage only and is auto-finalizing. Ricky Lowry MD IMG FILM LIBRARY ORD ERABLES Performing Organization Address City/State/[facility] Co de Phone Number [place], [place] documented in this encounter Visit Diagnoses Not on filedocumented in this encounter Care Teams Neonatal Social Worker Relationship Specialty Start Date End Date Ana Her MD [address] [place] [address] PCP - General 07/29/13 documented as of this encounter
--- OUTSIDE RECORDS SUMMARY | 2024-06-03 10:40 | XMS_ITS | Encounter Summary ---
[place] [address] Care Team Providers Care Copy Manager Name Role Phone Ana Her MD Primary Care Provider [phone] 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 * Surgical (Routine) - Closed Specialty Diagnoses / Procedures Referred By Christiano hackett Referred To Contact Orthopaedics Diagnoses Lumbar spinal stenosis Michelle Hurtado APRN [facility] [place] [address] [facility] [place] [address] [address] Referral ID Status Reason Start Date Expiration Date V isits Requested Visits Authorized [id number] Closed Consult, Test & Treat 09/08/2014 09/08/2015 3 3 Encounter Details Date Type Department Care Team (Late st Contact Info) Description 09/08/2014 Orders [place] [address] Michelle Hurtado TRUCK SPOTTER [facility] [place] [address] Lumbar spinal stenosis Social History Tobacco Use [...] claudication documented in this encounter Care Teams Copy Manager Relationship Specialty Start Date End Date Ana Her MD [facility] [address] [facility] 1 [place] [address] PCP - General 07/29/13 documented as of this encounter
--- OUTSIDE RECORDS SUMMARY | 2024-06-03 10:40 | XMS_ITS | Encounter Summary ---
[place] [address] Care Team Providers Care Fire Protection Specialist Name Role Phone Ana Her MD Primary Care Provider [phone] Encounter Details Date Type Department Care Team (Late st Contact Info) Description 05/06/2017 Telephone Radiation Oncology at [address] [address] Maria A Antonio RN Social [...] filedocumented in this encounter Care Teams Fire Protection Specialist Relationship Specialty Start Date End Date Ana Her MD [address] [facility] 1 [place] [address] PCP - General 07/29/13 documented as of this encounter
--- OUTSIDE RECORDS SUMMARY | 2024-06-03 10:40 | XMS_ITS | Encounter Summary ---
Author Organization [facility] Address [facility] [place] [address] Care Team Providers Care Content Specialist Name Role Phone Unavailable Primary Care Provider Unavailabl e Encounter Details Date Type Department Care Team (Latest Contact Info) Description 01/29/2013 - 01/29/2013 11:59 PM EDT Hospital Encounter Radiology Library at [facility] [place] [address] Jackie Cisneros APRN [facility] [place] [address] Discharge Disposition: Home Social History Tobacco Use [...]
--- OUTSIDE RECORDS SUMMARY | 2024-06-03 10:40 | XMS_ITS | Encounter Summary ---
Author Organization [facility] Address [facility] [place] [address] Care Team Providers Care Summer Clerk Name Role Phone Ana Her MD Primary Care Provider [phone] Encounter Details Date Type Department Care Team (Latest Contact Info) Description 02/17/2017 - 02/17/2017 12:14 AM EDT Hospital Encounter Radiology Library at [facility] [place] [address] Maryam Yee MD [facility] [place] [address] Screening breast examination Discharge Disposition: Home Social [...] Mammo (02/17/2017 12:00 AM EDT) Narrative [facility] - 02/19/2017 1:59 PM EDT This exam is for storage only and is auto-finalizing. Maryam Yee MD IMG FILM LIBRARY O RDERABLES Performing Organization Address City/State/[facility] Co de Phone Number [place], [place] documented in this encounter Visit Diagnoses Diagnosis Screening breast examination Other screening breast examination documented in this encounter Care Teams Summer Clerk Relationship Specialty Start Date End Date Ana Her MD [address] [place] [address] PCP - General 07/29/13 documented as of this encounter
--- OUTSIDE RECORDS SUMMARY | 2024-06-03 10:40 | XMS_ITS | Encounter Summary ---
[place] [address] Care Team Providers Care Ecommerce Merchandising Manager Name Role Phone Ana Her MD Primary Care Provider Encounter Details Date Type Department Care Team (Late st Contact Info) Description 04/09/2017 Abstract Radiation Oncology at [address] [phone] Maria A Antonio, RN Social History Tobacco [...] on filedocumented in this encounter Care Teams Ecommerce Merchandising Manager Relationship Specialty Start Date End Date Ana Her MD [address] [place] [address] PCP - General 07/29/13 documented as of this encounter
--- OUTSIDE RECORDS SUMMARY | 2024-06-03 10:40 | XMS_ITS | Encounter Summary ---
Author Organization [facility] [place] [address] Care Team Providers Care Fabric And Accessories Estimator Name Role Phone Ana Her MD Primary Care Provider [phone] Encounter Details Date Type Department Care Team (Late st Contact Info) Description 03/04/2017 Orders [place] [address] Malika Chen MD [facility] [place] [address] Malignant neoplasm of upper-outer quadrant of left [...] MD IMG MAMMO ORDERABLE S * Mammo [place] Node Injection (03/30/2017 9:01 AM EST) Anatomical [...] positive documented in this encounter Care Teams Fabric And Accessories Estimator Relationship Specialty Start Date End Date Ana Her MD [address] [facility] 1 [place] [address] PCP - General 07/29/13 documented as of this encounter
--- OUTSIDE RECORDS SUMMARY | 2024-06-03 10:40 | XMS_ITS | Encounter Summary ---
Author Organization [facility] [place] [address] Care Team Providers Care Geothermal Powerplant Supervisor Name Role Phone Ana Her MD Primary Care Provider [phone] Encounter Details Date Type Department Care Team (Latest Contact Info) Description 03/30/2017 8:30 AM [facility] Hospital Encounter [place] [address] Malika Chen MD [facility] [place] [address] Malignant neoplasm of upper-outer quadrant of left [...] positive documented in this encounter Care Teams Geothermal Powerplant Supervisor Relationship Specialty Start Date End Date Ana Her MD [address] [place] [address] PCP - General 07/29/13 documented as of this encounter
--- OUTSIDE RECORDS SUMMARY | 2024-06-03 10:40 | XMS_ITS | Encounter Summary ---
Author Organization [facility] [place] [address] Care Team Providers Care Rn Behavioral Health Name Role Phone Ana Her MD Primary Care Provider [phone] Encounter Details Date Type Department Care Team (Late st Contact Info) Description 03/30/2017 Notes [place] [address] January Ward MSW Social History Tobacco Use [...] was recently diagnosed with invasive mucinous carcinoma. [facility] attempted to meet with pt in Same Day surgery this morning but she was still in radiology. I spoke with her ex-, Keith, who states she will be staying with him tondenise. Their granddaughters are traveling from [place] and plan to accompany pt to see her volleyball commentator at [facility] tomorrow. Pt has been followed by this physician for her cardiac problems. [facility] will continue to provide support and resources to pt. documented in this encounter Plan of Treatment Not on file documented as of this encounter Visit Diagnoses Not on filedocumented in this encounter Care Teams Rn Behavioral Health Relationship Specialty Start Date End Date Ana Her MD [address] [facility] 1 [place] [address] PCP - General 07/29/13 documented as of this encounter
--- OUTSIDE RECORDS SUMMARY | 2024-06-03 10:40 | XMS_ITS | Encounter Summary ---
Author Organization [facility] [place] [address] Care Team Providers Care Insurance Customer Service Specialist Name Role Phone Ana Her MD Primary Care Provider [phone] Encounter Details Date Type Department Care Team (Late st Contact Info) Description 08/16/2014 Orders Only Functional Jainism Program at [facility] [address] [place] [address] Khari Martínez MD Social History Tobacco Use [...] filedocumented in this encounter Care Teams Insurance Customer Service Specialist Relationship Specialty Start Date End Date Ana Her MD [facility] [address] [facility] 1 [place] [address] PCP - General 07/29/13 documented as of this encounter
--- OUTSIDE RECORDS SUMMARY | 2024-06-03 10:40 | XMS_ITS | Encounter Summary ---
[place] [address] Care Team Providers Care Dishcloth Folder Name Role Phone Ana Her MD Primary Care Provider [phone] Encounter Details Date Type Department Care Team (Late st Contact Info) Description 03/18/2017 Telephone [place] [phone] Bryanna Marsh RN Social History Tobacco Use [...] notes she had a colonoscopy done at [facility] and developed atrial fibrillation; she has been started on blood thinners. She was just discharged from the [facility] hospital, and called us to let [...] give Digna a call her number is [phone]. The below is from Dr. Chen visit with Digna. Assessment and Plan: ?? 71 yo female with radiographic stage I ER/NH+, HER2- IDC of the left breast. No [...] on filedocumented in this encounter Care Teams Dishcloth Folder Relationship Specialty Start Date End Date Ana Her MD [address] [place] [address] PCP - General 07/29/13 documented as of this encounter
--- OUTSIDE RECORDS SUMMARY | 2024-06-03 10:40 | XMS_ITS | Encounter Summary ---
Author Organization [facility] Address [facility] [place] [address] Care Team Providers Care Excellence Coach Name Role Phone Unavailable Primary Care Provider Unavailabl e Encounter Details Date Type Department Care Team (Latest Contact Info) Description 12/25/2010 - 12/25/2010 11:59 PM EDT Hospital Encounter Radiology Library at [facility] [place] [address] Jackie Cisneros APRN [facility] [place] [address] Discharge Disposition: Home Social History Tobacco Use [...] Mammo (12/25/2010 12:00 AM EDT) Narrative [facility] - 02/23/2017 3:27 PM EDT This exam is for storage only and is auto-finalizing. Jackie Cisneros APRN IMG FILM LIBRARY ORD ERABLES NADINE Sethi documented in this encounter Visit Diagnoses Not on filedocumented in this encounter
--- OUTSIDE RECORDS SUMMARY | 2024-06-03 10:40 | XMS_ITS | Encounter Summary ---
Author Organization [facility] Address [place] [address] Care Team Providers Care Credit Or Loans Officer Name Role Phone Ana Her MD Primary Care Provider [phone] Encounter Details Date Type Department Care Team (Latest Contact Info) Description 02/23/2017 3:50 PM EDT - 02/23/2017 11:59 PM EDT Hospital Encounter Radiology Library [place] [address] Jackie Cisneros APRN [address] [place] [address] Left breast mass Discharge Disposition: Home Social [...] recommended. Please note: The interpretation of the [facility] Radiologist subspecialist may differ from the original radiologists interpretation. This is usually not due to a deficiency of the original interpreting radiologist, rather due to the greater skill level afforded by sub-specialization in the field and/or reasonable variations in interpretations. If you have a concern regarding the D-H interpretation you may contact the [facility] Breast Polygraph Operator Office at . I have personally [...] the care of this patient. STUDIES FROM: [facility] DATES: Screening mammogram 02/12/2017, diagnostic [...] alter the care of thispatient. STUDIES FROM: [facility] DATES: Screening mammogram 02/12/2017, diagnostic [...] recommended. Please note: The interpretation of the [facility] Breast[facility] Radiologist subspecialist may differ from the original radiologists interpretation. This is usually not due to a deficiency of the original interpreting radiologist, rather due to the greater skill level affordedby sub-specialization in the field and/or reasonable variations ininterpretations. If you have a concern regarding the D-H interpretation you may [facility] Breast Polygraph Operator [facility] at . I have personally reviewed the image(s) and the residents interpretationand agree with the findings, ROBERT THOMPSON at 02/24/2017 8:41 AM 8:41 AM Jackie Cisneros [facility] IMG OUTSIDE INTERPRE TATION ORDERABLES documented in this encounter Visit Diagnoses Diagnosis Left breast mass Lump or mass in breast documented in this encounter Care Teams Credit Or Loans Officer Relationship Specialty Start Date End Date Ana Her MD [address] [place] [address] PCP - General 07/29/13 documented as of this encounter
--- OUTSIDE RECORDS SUMMARY | 2024-06-03 10:40 | XMS_ITS | Encounter Summary ---
[place] [address] Care Team Providers Care General Claims Agent Name Role Phone Ana Her MD Primary Care Provider [phone] Encounter Details Date Type Department Care Team (Latest Contact Info) Description 03/30/2017 7:27 AM EST - 03/30/2017 1:37 PM EST Hospital Encounter [place] [phone] Brant Chen MD [facility] [place] [address] Discharge Disposition: Home Social History Tobacco Use [...] shower 24 hours Activity as tolerated Call [phone] with any questions Do not soak incision [...] Alma Delia had a bone scan in [place] which was read as possible metastasis in the left tibia. Of note- she fractured this area recently. She has recovered well. ?? PMH HNT NIDDM not on meds Spinal stenosis Fractured left tibial plateau December, GERD ?? FH: Maternal first cousin with breast cancer Brother with rectal cancer Sister with PE ? SH: lives alone. Has good support from sisters who live in [place]. Non smoker. Has a son who lives [...] Chen MD - 03/30/2017 12:27 PM EST [facility] Operative Note Patient Name: Digna Olson : [id number] MR#: [id number] Case Date: 03/30/2017 Surgeon: Surgeon(s) and Role: [...] [place] [id number]. Remaining count within the axilla was 1982. [...] PM EST 03/30/2017 12:09 PM EST Narrative [facility] - 03/30/2017 12:09 PM EST Specimen requisition ordered. ??Separate Pathology report to follow Brant Chen MD PATHOLOGY/CYTOLOGY ORDERABLES [facility] [place] [address] * Specimen to Pathology (surgical or derm) (03/30/2017 12:08 PM EST) AP Specimen 03/30/2017 12:0 8 PM EST 03/30/2017 12:08 PM EST Narrative [facility] - 03/30/2017 12:08 PM EST Specimen requisition ordered. ??Separate Pathology report to follow Brant Chen MD PATHOLOGY/CYTOLOGY ORDERABLES Performing Organization Address [facility] [place] [address] * Specimen to Pathology (surgical or derm) (03/30/2017 12:00 PM EST) AP Specimen 03/30/2017 12:0 0 PM EST 03/30/2017 12:00 PM EST Narrative [facility] - 03/30/2017 12:00 PM EST Specimen requisition ordered. ??Separate Pathology report to follow Brant Chen MD PATHOLOGY/CYTOLOGY ORDERABLES Performing Organization Address [facility] Co de Phone Number [place] [phone] * Specimen to Pathology (surgical or derm) (03/30/2017 11:51 AM EST) AP Specimen 03/30/2017 11:5 1 AM EST 03/30/2017 11:51 AM EST Narrative [facility] - 03/30/2017 11:51 AM EST Specimen requisition ordered. ??Separate Pathology report to follow Brant Chen MD PATHOLOGY/CYTOLOGY ORDERABLES Performing Organization Address [facility] [place] [address] * Surgical Pathology Report (03/30/2017 11:50 AM EST) Final Diagnosis [id number] ? Location: [facility]; [facility]; A The signing pathologist has (i) examined the relevant preparation(s) for the specimen(s) and (ii) rendered or confirmed the diagnosis(es). . ?Surgical Pathology DIAGNOSIS A,B - See Synoptic C - Left breast, Deep/lateral margin re-excision - ?Benign fatty breast tissue. D - Left breast, Superficial margin re-excision - ?Benign fatty breast tissue. See Note Note - [place] ink (indicating additional cranial margin) is also present on this superficial margin re-excision. ---- Specimen Parts: ?? A - Left axilliary sentinel node B - Left breast partial mastectomy Specimen ? Procedure: ??Excision with image-guided localization ? Lymph Node Sampling: ?? Soso lymph node(s) ? Specimen Laterality: ?? Left [...] not present in specimen Lymph Nodes ? Soso Lymph Nodes: ?? Soso lymph node biopsy performed ? Number of Soso Nodes Examined: ?3 ? Number of Lymph [...] Chávez DO Verified: ??04/01/2017 ?Pathologist Performed at: ??-[facility] Dept. of Pathology, [place], [place] CLINICAL INFORMATION Specimen Submitted: A - [...] and there are ??no close margins. per [facility] Radiology . Specimen Description: According [...] 0.8 x 0.4 x 0.4 cm. Color: [place] and yellow. Consistency: Soft. Location: Slices III and IV. Nearest Margin: 0.6 cm to the cranial margin. Other Margins: 0.8 cm to the deep margin, 1.0 cm to the superficial margin, ? > 2 cm from all other margins. OTHER Parenchyma: Predominately fatty with scant fibrous tissue. Wire/Clip: Biopsy marker clip identified within slice IV. SECTIONS/PROCESSI NG: (1) pharmacy sales representative slice I, lateral margin; (2) slice III, lesion to cranial margin; (3-5) remainder of slice III; (6) slice IV, lesion to cranial margin (clip); (7-8) remainder of slice IV; (9) pharmacy sales representative slice V; (10) pharmacy sales representative slice X, medial margin. (R10) [...] sectioned. (T3) ??sns 04/01/2017 9:38 AM EST [facility] BREAST STRUCTURE / Unknown 03/30/2017 11:50 AM EST 03/30/2017 11:50 AM EST BREAST STRUCTURE / Unknown 03/30/2017 11:50 AM EST 03/30/2017 11:50 AM EST BREAST STRUCTURE / Unknown 03/30/2017 11:50 AM EST 03/30/2017 11:50 AM EST BREAST STRUCTURE / Unknown 03/30/2017 11:50 AM EST 03/30/2017 11:50 AM EST Brant Chen MD PATHOLOGY/CYTOLOGY ORDERABLES [facility] [place] [address] * Mammo Direct Digital Left (03/30/2017 9:15 [...] Routine documented in this encounter Care Teams General Claims Agent Relationship Specialty Start Date End Date Ana Her MD [address] [place] [address] PCP - General 07/29/13 documented as of this encounter
--- OUTSIDE RECORDS SUMMARY | 2024-06-03 10:40 | XMS_ITS | Encounter Summary ---
Author Organization [facility] Address One [facility] [place] [address] Care Team Providers Care Metal Tank Builder Name Role Phone Ana Her MD Primary Care Provider [phone] Encounter Details Date Type Department Care Team (Late st Contact Info) Description 09/13/2015 Interpretation Only Radiology 1 [facility] [place] [address] Unknown None Social History Tobacco Use Types [...] 6:56 AM EDT APD Historical Result Principal Pediatrician Managing Partner: ??MAE ??ESCHBACH IMAGE-INTENSIFIER FILMS: INDICATION: ??Right L4 foraminotomy. FINDINGS: A total of 5.8 seconds of fluoro time was utilized by Geraldine Claros MD. ??Estimated dose is 5.96 mGy. ??Two image-intensifier films record the event. ??They show the lumbosacral junction in the lateral projection with a surgical instrument indicating the level of L4. ??No Radiologist was present for this exam. Mae Shelley DO TOBIN/mn [id number] Procedure Note Unknown - 11/01/2018 APD Historical Result Principal Pediatrician Managing Partner: MAE SHELLEY IMAGE-INTENSIFIER FILMS: INDICATION: Right L4 foraminotomy. FINDINGS: A total of 5.8 seconds of fluoro time was utilized by Geraldine Claros MD. Estimated dose is 5.96 mGy. Two image-intensifier films record the event. They show thelumbosacral junction in the lateral projection with a surgical instrument indicating the level of L4.No Radiologist was present for this exam. Mae Shelley DO TOBIN/mn [id number] Unknown IMG FLUORO ORDERABLE S documented in this encounter Visit Diagnoses Not on filedocumented in this encounter Care Teams Metal Tank Builder Relationship Specialty Start Date End Date Ana Her MD [address] [place] [address] PCP - General 07/29/13 documented as of this encounter
--- OUTSIDE RECORDS SUMMARY | 2024-06-03 10:40 | XMS_ITS | Encounter Summary ---
Author Organization [facility] [place] [address] Care Team Providers Care Layout Worker Name Role Phone Ana Her MD Primary Care Provider [phone] Encounter Details Date Type Department Care Team (Late st Contact Info) Description 02/27/2017 Orders Only [place] [address] Malika Chen MD [facility] [place] [address] Malignant neoplasm of left breast in female, [...] Est Glomerular Filtration Rate 58(L) >=60 [facility] Comment: The reported eGFR should be multiplied by 1.2 for patients. The MDRD is not an appropriate measure of renal function for patients with body mass extremes or in patients with acute kidney failure. http://[employer].Dryad/DHnkdep http://[employer].Dryad/DHMCnkf Blood specimen (specimen) 03/03/2017 7:50 AM EDT 03/03/2017 8:03 AM EDT Narrative Resulting Agency Comment Spec In Lab Malika Chen MD CHEMISTRY ORDERABLE S [facility] [address] documented in this encounter Visit Diagnoses Diagnosis Malignant neoplasm of left breast in female, estrogen receptor positive, unspecified site of breast documented in this encounter Care Teams Layout Worker Relationship Specialty Start Date End Date Ana Her MD [address] [facility] 1 [place] [address] PCP - General 07/29/13 documented as of this encounter
--- OUTSIDE RECORDS SUMMARY | 2024-06-03 10:40 | XMS_ITS | Encounter Summary ---
[place] [address] Care Team Providers Care Manager Loss Prevention Name Role Phone Ana Her MD Primary Care Provider [phone] Reason for Visit * Reason Comments Low Back Pain Bilateral Hip Pain when standing or wal jaquelin Encounter Details Date Type Department Care Team (Late st Contact Info) Description 09/12/2014 11:20 AM EDT Office [place] [phone] Kris Benoit MD Neurogenic claudication due to [...] pain free. Lumbar MRI from 08/16/2014 from [facility] is notable for multilevel degenerative changes L2-L3, L3-L4, L4-L5, L5-S1. At L2-L3, she has kkkemlrf-hx-bmqdbm spinal stenosis, but she has no leg [...] documented in this encounter Care Teams Manager Loss Prevention Relationship Specialty Start Date End Date Ana Her MD [address] [place] [address] PCP - General 07/29/13 documented as of this encounter
--- OUTSIDE RECORDS SUMMARY | 2024-06-03 10:40 | XMS_ITS | Encounter Summary ---
Author Organization [facility] Address [facility] [place] [address] Care Team Providers Care Facilities Engineer Name Role Phone Ana Her MD Primary Care Provider [phone] Reason for Visit * Reason Comments Radiation Consult * Consultation (Routine) - Closed Specialty Diagnoses / Procedures Referred By Christiano hackett Referred To Contact Radiation Oncology Diagnoses Breast cancer Malika Chen MD [facility] [place] [address] Stj Rad Onc Office [address] [place] [phone] Referral ID Status Reason Start Date Expiration Date Visits Re quested Visits Authorized [id number] Closed 03/17/2017 03/17/2018 1 1 Encounter Details Date Type Department Care Team (Late st Contact Info) Description 04/13/2017 10:00 AM EST Office Visit Radiation Oncology at [address] [address] Faye Velez MD [facility] [place] [address] Malignant neoplasm of left female breast, unspecified [...] cm from nipple. 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 03/03/[address] [...] [facility] ??? PRO MASTECTOMY, PARTIAL Left 03/30/2017 MASTECTOMY PARTIAL (WRVU 10.13) performed by Malika Chen MD at [facility] Your Medications These changes [...] A: Breast ca, L, mucinous, gr 2, ER+MO+, Her2 neg, s/p lumpectomy & SNB, pT1b [...] treated breast; cough; shortness of breath; tiredness. Late/bed bug exterminator side effects to breast discussed include: Treated [...] documented in this encounter Care Teams Facilities Engineer Relationship Specialty Start Date End Date Ana Her MD [address] [place] [address] PCP - General 07/29/13 documented as of this encounter
--- OUTSIDE RECORDS SUMMARY | 2024-06-03 10:40 | XMS_ITS | Encounter Summary ---
Author Organization [facility] [place] [address] Care Team Providers Care English As A Second Language Teacher Name Role Phone Ana Her MD Primary Care Provider [phone] Encounter Details Date Type Department Care Team (Late st Contact Info) Description 03/30/2017 9:30 AM EST - 03/30/2017 11:28 AM EST [place] [phone] Brant Cehn MD [facility] GENER[place] [address] MASTECTOMY PARTIAL (WRVU 10.13) Social History Tobacco [...] shower 24 hours Activity as tolerated Call [phone] with any questions Do not soak incision [...] Alma Delia had a bone scan in [place] which was read as possible metastasis in the left tibia. Of note- she fractured this area recently. She has recovered well. ?? PMH HNT NIDDM not on meds Spinal stenosis Fractured left tibial plateau [place], 2017 GERD ?? FH: Maternal first cousin with breast cancer Brother with rectal cancer Sister with PE ? SH: lives alone. Has good support from sisters who live in [place]. Non smoker. Has a son who lives [...] Chen MD - 03/30/2017 12:27 PM EST [facility] Operative Note Patient Name: Digna Olson : [id number] MR#: [id number] Case Date: 03/30/2017 Surgeon: Surgeon(s) and Role: [...] [place] [id number]. Remaining count within the axilla was 1982. [...] PM EST 03/30/2017 12:09 PM EST Narrative [facility] - 03/30/2017 12:09 PM EST Specimen requisition ordered. ??Separate Pathology report to follow Brant Chen MD PATHOLOGY/CYTOLOGY ORDERABLES [facility] [place] [address] * Specimen to Pathology (surgical or derm) (03/30/2017 12:08 PM EST) AP Specimen 03/30/2017 12:0 8 PM EST 03/30/2017 12:08 PM EST Narrative [facility] - 03/30/2017 12:08 PM EST Specimen requisition ordered. ??Separate Pathology report to follow Brant Chen MD PATHOLOGY/CYTOLOGY ORDERABLES Performing Organization Address [facility] Co de Phone Number [facility] [place] [address] * Specimen to Pathology (surgical or derm) (03/30/2017 12:00 PM EST) AP Specimen 03/30/2017 12:0 0 PM EST 03/30/2017 12:00 PM EST Narrative [facility] - 03/30/2017 12:00 PM EST Specimen requisition ordered. ??Separate Pathology report to follow Brant Chen MD PATHOLOGY/CYTOLOGY ORDERABLES Performing Organization Address [facility] [address] * Specimen to Pathology (surgical or derm) (03/30/2017 11:51 AM EST) AP Specimen 03/30/2017 11:5 1 AM EST 03/30/2017 11:51 AM EST Narrative [facility] - 03/30/2017 11:51 AM EST Specimen requisition ordered. ??Separate Pathology report to follow Brant Chen MD PATHOLOGY/CYTOLOGY ORDERABLES Performing Organization Address [facility] Co de Phone Number [facility] [place] [phone] * Surgical Pathology Report (03/30/2017 11:50 AM EST) Final Diagnosis [id number] ? Location: [facility]; [facility]; A The signing pathologist has (i) examined the relevant preparation(s) for the specimen(s) and (ii) rendered or confirmed the diagnosis(es). . ?Surgical Pathology DIAGNOSIS A,B - See Synoptic C - Left breast, Deep/lateral margin re-excision - ?Benign fatty breast tissue. D - Left breast, Superficial margin re-excision - ?Benign fatty breast tissue. See Note Note - [place] ink (indicating additional cranial margin) is also present on this superficial margin re-excision. ---- Specimen Parts: ?? A - Left axilliary sentinel node B - Left breast partial mastectomy Specimen ? Procedure: ??Excision with image-guided localization ? Lymph Node Sampling: ?? [place] lymph node(s) ? Specimen Laterality: ?? Left [...] not present in specimen Lymph Nodes ? [place] Lymph Nodes: ?? [place] lymph node biopsy performed ? Number of [place] Nodes Examined: ?3 ? Number of Lymph [...] Chávez DO Verified: ??04/01/2017 ?Pathologist Performed at: ??-[facility] Dept. of Pathology, [place], [place] CLINICAL INFORMATION Specimen Submitted: A - [...] are ??no close margins. per [facility] . Specimen Description: According to the established protocol the ink designations are red (medial), yellow (lateral), orange (cranial), green (caudal), black (deep) and blue (superficial). Tissue Sections: The specimen is serially sectioned perpendicular to the long axis from lateral to medial into X slices, each averaging 0.45 cm in thickness. LESION Description: Biopsy site. Size: 0.8 x 0.4 x 0.4 cm. Color: [place] and yellow. Consistency: Soft. Location: Slices III and IV. Nearest Margin: 0.6 cm to the cranial margin. Other Margins: 0.8 cm to the deep margin, 1.0 cm to the superficial margin, ? > 2 cm from all other margins. OTHER Parenchyma: Predominately fatty with scant fibrous tissue. Wire/Clip: Biopsy marker clip identified within slice IV. SECTIONS/PROCESSI NG: (1) apprenticeship training representative slice I, lateral margin; (2) slice III, lesion to cranial margin; (3-5) remainder of slice III; (6) slice IV, lesion to cranial margin (clip); (7-8) remainder of slice IV; (9) apprenticeship training representative slice V; (10) apprenticeship training representative slice X, medial margin. (R10) Ischemic [...] sectioned. (T3) ??sns 04/01/2017 9:38 AM EST [facility] BREAST STRUCTURE / Unknown 03/30/2017 11:50 AM EST 03/30/2017 11:50 AM EST BREAST STRUCTURE / Unknown 03/30/2017 11:50 AM EST 03/30/2017 11:50 AM EST BREAST STRUCTURE / Unknown 03/30/2017 11:50 AM EST 03/30/2017 11:50 AM EST BREAST STRUCTURE / Unknown 03/30/2017 11:50 AM EST 03/30/2017 11:50 AM EST Brant Chen MD PATHOLOGY/CYTOLOGY ORDERABLES [facility] [place] [address] * Mammo Direct Digital Left (03/30/2017 9:15 [...] Routine documented in this encounter Care Teams English As A Second Language Teacher Relationship Specialty Start Date End Date Ana Her MD [address] [place] [address] PCP - General 07/29/13 documented as of this encounter
--- OUTSIDE RECORDS SUMMARY | 2024-06-03 10:40 | XMS_ITS | Encounter Summary ---
[place] [address] Care Team Providers Care Cotton Weigher Operator Name Role Phone Ana Her MD Primary Care Provider [phone] Encounter Details Date Type Department Care Team (Late st Contact Info) Description 05/19/2017 Telephone Hematology [place] [phone] Sandy Chapman Social History Tobacco Use Types [...] on filedocumented in this encounter Care Teams Cotton Weigher Operator Relationship Specialty Start Date End Date Ana Her MD [address] [place] [address] PCP - General 07/29/13 documented as of this encounter
--- OUTSIDE RECORDS SUMMARY | 2024-06-03 10:40 | XMS_ITS | Encounter Summary ---
Author Organization [facility] [place] [address] Care Team Providers Care Digitizer Name Role Phone Ana Her MD Primary Care Provider [phone] Encounter Details Date Type Department Care Team (Latest Contact Info) Description 02/17/2017 12:15 AM EDT - 02/17/2017 11:59 PM EDT Hospital Encounter Radiology Library [place] [facility] [place] [address] Maryam Yee MD [facility] [place] [address] Screening breast examination Discharge Disposition: Home Social [...] Mammo (02/17/2017 12:15 AM EDT) Narrative [facility] - 02/19/2017 2:01 PM EDT This exam is for storage only and is auto-finalizing. Maryam Yee MD IMG FILM LIBRARY O RDERABLES [place], [place] documented in this encounter Visit Diagnoses Diagnosis Screening breast examination Other screening breast examination documented in this encounter Care Teams Digitizer Relationship Specialty Start Date End Date Ana Her MD [address] [place] [address] PCP - General 07/29/13 documented as of this encounter
--- OUTSIDE RECORDS SUMMARY | 2024-06-03 10:40 | XMS_ITS | Encounter Summary ---
[place] [address] Care Team Providers Care Home Worker Name Role Phone Ana Her MD Primary Care Provider Encounter Details Date Type Department Care Team (Late st Contact Info) Description 07/26/2013 Orders [place] [address] Ana Her MD [facility] [address] [place] [address] Social History Tobacco Use Types Packs/Day Years [...] is a Non-reportable exam Ana Her MD [facility] FILM LIBRARY ORD ERABLES documented in this encounter Visit Diagnoses Not on filedocumented in this encounter Care Teams Home Worker Relationship Specialty Start Date End Date Ana Her MD [address] [place] [address] PCP - General 07/29/13 documented as of this encounter
--- OUTSIDE RECORDS SUMMARY | 2024-06-03 10:40 | XMS_ITS | Encounter Summary ---
[place] [address] Care Team Providers Care Paper Processing Machine Helper Name Role Phone Ana Her MD Primary Care Provider [phone] Reason for Visit * Reason Onset Date Comments Referral 07/29/2013 Encounter Details Date Type Department Care Team (Late st Contact Info) Description 07/29/2013 Telephone Orthopa[place] [phone] Sophia Palacios Referral Social History Tobacco Use [...] on filedocumented in this encounter Care Teams Paper Processing Machine Helper Relationship Specialty Start Date End Date Ana Her MD [address] [facility] 1 [place] [address] PCP - General 07/29/13 documented as of this encounter
--- OUTSIDE RECORDS SUMMARY | 2024-06-03 10:41 | XMS_ITS | Encounter Summary ---
Author Organization [facility] Address [facility] [place] [address] Care Team Providers Care Fishing Tool Operator Name Role Phone Unavailable Primary Care Provider Unavailabl e Encounter Details Date Type Department Care Team (Latest Contact Info) Description 11/12/2007 - 11/12/2007 11:59 PM EDT Hospital Encounter Radiology Library at [facility] [address] Jackie Cisneros APRN [facility] [place] [place] [address] Discharge Disposition: Home Social History Tobacco Use [...] Only Mammo (11/12/2007 12:00 AM EDT) Narrative [facility] - 02/23/2017 3:31 PM EDT This exam is for storage only and is auto-finalizing. Jackie Cisneros APRN IMG FILM LIBRARY ORD ERABLES NADINE Sethi documented in this encounter Visit Diagnoses Not on filedocumented in this encounter
--- OUTSIDE RECORDS SUMMARY | 2024-06-03 10:41 | XMS_ITS | Encounter Summary ---
Author Organization [facility] Address [address] [place] [address] Care Team Providers Care Metal Bench Patternmaker Name Role Phone Unknown, Provider Primary Care Provider Unava ilable Encounter Details Date Type Department Care Team (Late st Contact Info) Description 11/19/2023 Lab Requisition [facility] Pathology & Laboratory Medicine - [facility] [address] [place], [place] [address] Outr Resulting Lab, Provider Social History Tobacco [...] - 352 mg/dL 11/20/2023 9:45 EDT [facility] Blood VENOUS BLOOD / Unknown 11/19/2023 6:05 EDT 11/19/2023 17:32 EDT us Provider Outr Resulting Lab CHEMISTRY & BLOOD GA S ORDERABLES Final Result [facility] [address] [place], [place] [address] documented in this encounter Visit Diagnoses Not on filedocumented in this encounter Care Teams Metal Bench Patternmaker Relationship Specialty Start Date End Date Unknown, Provider, PCP - General 01/13/14 documented as of this encounter
--- OUTSIDE RECORDS SUMMARY | 2024-06-03 10:41 | XMS_ITS | Encounter Summary ---
Author Organization [facility] Address [address] [place] [address] Care Team Providers Care Gravity Prospecting Observer Helper Name Role Phone Unknown, Provider Primary Care Provider Unava ilable Encounter Details Date Type Department Care Team (Late st Contact Info) Description 03/17/2017 Results Only [facility] [phone] Kat Lazaro MD [facility] [address] [place] [id number] Social History Tobacco Use Types Packs/Day Years [...] ? DIGNA KIMBROUGH ? Accession #: ? [id number] ? : ? 1945 (Age: 71) ??F [...] (ASCP) 03/18/2017 8:14 AM End of Report [facility] 03/17/2017 16:1 5 EST 03/17/2017 16:15 EST us Kat Lazaro MD PATHOLOGY ORDERABLES Fin al Result [facility] [address] [place] [address] documented in this encounter Visit Diagnoses Not on filedocumented in this encounter Care Teams Gravity Prospecting Observer Helper Relationship Specialty Start Date End Date Unknown, Provider, PCP - General 01/13/14 documented as of this encounter
--- OUTSIDE RECORDS SUMMARY | 2024-06-03 10:41 | XMS_ITS | Encounter Summary ---
Author Organization [facility] Address [facility] [place] [address] Care Team Providers Care Ui Architect Name Role Phone Unavailable Primary Care Provider Unavailabl e Encounter Details Date Type Department Care Team (Latest Contact Info) Description 03/19/2006 - 03/19/2006 11:59 PM EST Hospital Encounter Radiology Library [place] [address] Jackie Cisneros APRN [facility] [place] [place] [address] Discharge Disposition: Home Social History Tobacco Use [...]
--- OUTSIDE RECORDS SUMMARY | 2024-06-03 10:41 | XMS_ITS | Encounter Summary ---
Author Organization [facility] Address [address] [place] [address] Care Team Providers Care Golf Starter And Ranger Name Role Phone Unknown, Provider Primary Care Provider Unava ilable Encounter Details Date Type Department Care Team (Late st Contact Info) Description 01/20/2020 Lab Requisition [facility] Pathology & Laboratory [facility] - [facility] [address] [place] [address] Outr Resulting Lab, Provider Social History Tobacco [...] rt-PCR Result NEGATIVE Negative 01/21/2020 16:10 EDT [facility] Comment: 2019-novel Coronavirus (2019-nCoV) [...] in accordance with CLIA regulations, [employer] [place] (CAP) guidelines (Jul 21, 2019), and FDA guidance (Jul 02, 2019). This test is only for use under the Food and Drug Administration's Emergency Use Authorization. Swab ENTIRE NASOPHARYNX / Unknown 01/20/2020 10:30 EDT 01/20/2020 15:35 EDT us Provider Outr Resulting Lab MICROBIOLOGY - GENER AL ORDERABLES Final Result Performing Organization Address City/State/[facility] Co de Phone Number [facility] [place], [place] * COVID-19 TESTING (01/20/2020 10:30 EDT) COVID-19 rt-PCR Result NEGATIVE Negative 01/21/2020 17:21 EDT [facility] Comment: 2019-novel Coronavirus (2019-nCoV) not [...] in accordance with CLIA regulations, [employer] [place] (CAP) guidelines (Jul 21, 2019), and FDA guidance (Jul 02, 2019). This test is only for use under the Food and Drug Administration's Emergency Use Authorization. Performing Lab [facility] 01/21/2020 17:21 EDT [facility] Swab 01/20/2020 10:3 0 EDT 01/20/2020 15:35 EDT us Provider Outr Resulting Lab MICROBIOLOGY - GENER AL ORDERABLES Final Result [facility] [address] [place] [address] [facility] [place], [place] documented in this encounter Visit Diagnoses Not on filedocumented in this encounter Care Teams Golf Starter And Ranger Relationship Specialty Start Date End Date Unknown, Provider, PCP - General 01/13/14 documented as of this encounter
--- OUTSIDE RECORDS SUMMARY | 2024-06-03 10:41 | XMS_ITS | Encounter Summary ---
Author Organization [facility] Address [facility] [place] [address] Care Team Providers Care Slumber Room Attendant Name Role Phone Unavailable Primary Care Provider Unavailabl e Encounter Details Date Type Department Care Team (Latest Contact Info) Description 12/08/2008 - 12/08/2008 11:59 PM EDT Hospital Encounter Radiology Library [place] [address] Jackie Cisneros APRN [facility] [place] [address] Discharge Disposition: Home Social History Tobacco Use [...] Only Mammo (12/08/2008 12:00 AM EDT) Narrative [facility] - 02/23/2017 3:30 PM EDT This exam is for storage only and is auto-finalizing. Jackie Cisneros APRN IMG FILM LIBRARY ORD ERABLES NADINE Sethi documented in this encounter Visit Diagnoses Not on filedocumented in this encounter
--- OUTSIDE RECORDS SUMMARY | 2024-06-03 10:41 | XMS_ITS | Encounter Summary ---
Author Organization [facility] Address [facility] [place] [address] Care Team Providers Care Time Study Statistician Name Role Phone Unavailable Primary Care Provider Unavailabl e Encounter Details Date Type Department Care Team (Latest Contact Info) Description 12/19/2009 - 12/19/2009 11:59 PM EDT Hospital Encounter Radiology Library at [facility] [place] [address] Jackie Cisneros APRN [facility] [place] [address] [place] [address] Discharge Disposition: Home Social History Tobacco Use [...] Mammo (12/19/2009 12:00 AM EDT) Narrative [facility] [place] 02/23/2017 3:29 PM EDT This exam is for storage only and is auto-finalizing. Jackie Cisneros APRN IMG FILM LIBRARY ORD ERABLES NADINE Sethi documented in this encounter Visit Diagnoses Not on filedocumented in this encounter
--- OUTSIDE RECORDS SUMMARY | 2024-06-03 10:41 | XMS_ITS | Encounter Summary ---
Author Organization [facility] Address [address] [place] [address] Care Team Providers Care Wheel Polisher Name Role Phone Unknown, Provider MD Primary Care Provider Unava ilable Encounter Details Date Type Department Care Team (Late st Contact Info) Description 10/26/2022 Lab Requisition [facility] Pathology & Laboratory Medicine - [facility] [address] [place] [address] Outr Resulting Lab, Provider Social History Tobacco [...] Neg and Giardia Antigen Neg 13:48 EDT [facility] Feces SPECIMEN FROM RECTUM / Unknown 10/25/2022 15:00 EDT 10/26/2022 15:25 EDT us Provider Outr Resulting Lab MICROBIOLOGY - GENER AL ORDERABLES Final Result [facility] [address] [place] [address] * FECAL BACTERIAL PATHOGENS BY PCR (10/25/2022 15:00 EDT) Salmonella PCR Negative Negative 10/26/2022 19:17 EDT [facility] Shigella/Enteroin vasive E. coli Negative Negative 10/26/2022 19:17 EDT [facility] HN LAB CAMPYLOBACTER PCR Negative Negative 10/26/2022 19:17 EDT [facility] Shiga Toxin PCR Negative Negative 19:17 EDT [facility] Feces SPECIMEN FROM RECTUM / Unknown 10/25/2022 15:00 EDT 10/26/2022 15:25 EDT us Provider Outr Resulting Lab MICROBIOLOGY - GENER AL ORDERABLES Final Result Performing Organization Address [facility] Co de Phone Number [facility] [address] [place] [address] * OVA/PARASITE EXAM (10/25/2022 15:00 EDT) Parasite No ova and parasites seen. 10/28/2022 15:08 EDT [facility] Feces SPECIMEN FROM RECTUM / Unknown 10/25/2022 15:00 EDT 10/26/2022 15:25 EDT Narrative [facility] - 10/28/2022 15:08 EDT (If Cryptosporidium, Cyclospora, or Microsporidium are suspected, specific tests must be requested.) Single negative specimen does not rule out the possibility of a parasitic infection. us Provider Outr Resulting Lab MICROBIOLOGY - GENER AL ORDERABLES Final Result Performing Organization Address City/[facility]/ZIP Co de Phone Number [facility] [address] [place] [address] documented in this encounter Visit Diagnoses Not on filedocumented in this encounter Care Teams Wheel Polisher Relationship Specialty Start Date End Date Unknown, Provider, PCP - General 9/12/14 documented as of this encounter
--- OUTSIDE RECORDS SUMMARY | 2024-06-03 10:41 | XMS_ITS | Referral Summary ---
Author Organization [facility] Address [address] [place] [address] Care Team Providers Care Semiconductor Wafers Etcher Stripper Name Role Phone Unknown, Provider MD Primary Care Provider Unava ilable Social History Tobacco Use Types Packs/Day Years Used Date Smoking Tobacco: Never Assessed Comments Unknown Sex and Gender Information Value Date Recorded Sex Assigned at Not on file Legal Sex Female 9:32 EDT Gender Identity Not on file Sexual Orientation Not on file Plan of Treatment Not on file Care Teams Semiconductor Wafers Etcher Stripper Relationship Specialty Start Date End Date Unknown, Provider, PCP - General 01/13/14
--- OUTSIDE RECORDS SUMMARY | 2024-06-03 10:41 | XMS_ITS | Clinical Summary ---
Author Organization [facility] Address [address] [place] [address] Care Team Providers Care Deburring And Tooling Machine Operator Name Role Phone Unknown, Provider MD [...] COVID-19 Vaccine (2023- season) 2024 Care Teams Deburring And Tooling Machine Operator Relationship Specialty Start Date End Date Unknown, Provider, PCP - General 01/13/14
--- OUTSIDE RECORDS SUMMARY | 2024-06-03 10:41 | XMS_ITS | Encounter Summary ---
Author Organization [facility] Address [address] [place] [address] Care Team Providers Care Director Online Marketing Name Role Phone Unavailable Primary Care Provider Unavailabl e Encounter Details Date Type Department Care Team (Latest Contact Info) Description 01/10/2014 20:50 EDT - 01/10/2014 23:59 EDT Hospital Encounter [facility] [address] [place] [address] Unknown, Provider, MD Discharge Disposition: Home or [...]
--- OUTSIDE RECORDS SUMMARY | 2024-06-03 10:41 | XMS_ITS | Encounter Summary ---
Author Organization [facility] Address [address] [place] [address] Care Team Providers Care Distribution Warehouse Manager Name Role Phone Unknown, Provider MD Primary Care Provider Unava ilable Encounter Details Date Type Department Care Team (Late st Contact Info) Description 04/06/2022 Lab Requisition [facility] Pathology & Laboratory Medicine - [facility] [address] [place] [address] Outr Resulting Lab, Provider Social History Tobacco [...] Salmonella PCR Negative Negative 04/06/2022 22:54 EST [facility] Shigella/Enteroin vasive E. coli Negative Negative 04/06/2022 22:54 EST [facility] HN LAB CAMPYLOBACTER PCR Negative Negative 04/06/2022 22:54 EST [facility] Shiga Toxin PCR Negative Negative 22:54 EST [facility] Feces SPECIMEN FROM RECTUM / Unknown 04/05/2022 10:41 EST 04/06/2022 18:31 EST us Provider Outr Resulting Lab MICROBIOLOGY - GENER AL ORDERABLES Final Result [facility] [address] [place] [address] documented in this encounter Visit Diagnoses Not on filedocumented in this encounter Care Teams Distribution Warehouse Manager Relationship Specialty Start Date End Date Unknown, Provider, PCP - General 01/13/14 documented as of this encounter
--- OUTSIDE RECORDS SUMMARY | 2024-06-03 10:41 | XMS_ITS | Encounter Summary ---
Author Organization [facility] Address [facility] [place] [address] Care Team Providers Care Magnetic Healer Name Role Phone Unavailable Primary Care Provider Unavailabl e Encounter Details Date Type Department Care Team (Latest Contact Info) Description 04/04/2005 - 04/04/2005 11:59 PM EST Hospital Encounter Radiology Library at [facility] [place] [address] Jackie Cisneros APRN [facility] [place] [address] [place] [address] Discharge Disposition: Home Social History Tobacco Use [...]
--- OUTSIDE RECORDS SUMMARY | 2024-06-03 10:41 | XMS_ITS | Encounter Summary ---
Author Organization [facility] Address [address] [place] [address] Care Team Providers Care Associate Material Handler Name Role Phone Unknown, Provider MD Primary Care Provider Unava ilable Encounter Details Date Type Department Care Team (Late st Contact Info) Description 08/12/2021 Lab Requisition [facility] Pathology & Laboratory Medicine - [facility] [address] [place] [address] Outr Resulting Lab, Provider Social History Tobacco [...] Priority Date/Time Associated Diagnosis Comments ZZCOVID-19 TEST [facility] LAB PCR Today 08/12/2021 15:00 EDT COVID-19 TESTING Routine 08/12/2021 15:0 0 EDT documented in this encounter Results * [facility] (08/12/2021 15:00 EDT) Swab 08/12/2021 15:0 0 EDT 08/13/2021 16:56 EDT us Provider Outr Resulting Lab MICROBIOLOGY - GENER AL ORDERABLES Final Result [facility] [address] [place] [address] * COVID-19 TESTING (08/12/2021 15:00 EDT) COVID-19 rt-PCR Result Negative Negative 08/14/2021 11:53 EDT [facility] Comment: This test [...] was performed using the palomo SARS-CoV-2 assay ([employer] on the Palomo 6800 System Performing Lab [facility] [address] [facility] Lab 08/14/2021 11:53 EDT [facility] Swab 08/12/2021 15:0 0 EDT 08/13/2021 16:56 EDT us Provider Outr Resulting Lab MICROBIOLOGY - GENER AL ORDERABLES Final Result [facility] [address] [place] [address] documented in this encounter Visit Diagnoses Not on filedocumented in this encounter Care Teams Associate Material Handler Relationship Specialty Start Date End Date Unknown, Provider, PCP - General 01/13/14 documented as of this encounter
== END 2024-06-03 23:59 | disposition home or self-care (01) ==
LOC: CR 10:28
PROVIDERS: PCP Family Medicine; Visit Provider Internal Medicine Cardiovascular Disease
DX: Q23.1 Congenital insufficiency of aortic valve (principal); Z51.89 Encounter for other specified aftercare
CPT/HCPCS: S9472

== ENCOUNTER 2024-06-14 11:29 | Outpatient (CLI) | payer MEDICARE, SELFPAY ==
[2024-06-14 12:31] LABS: Anion Gap 6.4 mmol/L (3-11); BUN 22 mg/dL (7-18); CO2 27.6 mmol/L (21.0-32.0); CREATININE 0.9 mg/dL (0.55-1.02); Calcium 9.3 mg/dL (8.5-10.1); Chloride 109 mmol/L (98-107); Estimated GFR 65.44 (mL/min/1.73m2); Glucose 107 mg/dL (74-106); Sodium 143 mmol/L (136-145)
== END 2024-06-14 11:30 | disposition home or self-care (01) ==
LOC: LBO 11:30
PROVIDERS: PCP Family Medicine; Visit Provider Internal Medicine Cardiovascular Disease
DX: I48.11 Longstanding persistent atrial fibrillation (principal)
CPT/HCPCS: 36415; 80048; 86850; 86900; 86901

== ENCOUNTER 2024-07-01 10:12 | Outpatient (RCR) | payer MEDICARE, BC, SELFPAY ==
--- OUTSIDE RECORDS SUMMARY | 2024-06-15 10:47 | XMS_ITS | Patient Health Record ---
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 CANCER GOUT HEART SISEASE ANKLE SPRAINS Surgical History Surgery Date(Month/Year) RT. ANKLE L. 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
--- OUTSIDE RECORDS SUMMARY | 2024-06-15 10:47 | XMS_ITS ---
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 Vital Signs Weight 170 lbs 02/16/2024 Height 5ft 4in in 02/16/2024 BMI 29.18 02/16/2024 Encounters Encounter Location Date Provider Diagnosis [facility] [address] [place], [place] [phone] 02/16/2024 VIKTOR SANCHEZ Ingrowing nail L60.0 ; [...] Notes * KODY KIMBROUGHDOB:1945 (78 yo F)Acc No.[id number]:02/16/2024 New Patient Notes Patient:?KODY KIMBROUGH Provider:?Gloria Sanchez D.P.M., Tangela Gonzalez :1945???Age:78 Y???Sex:Female D ate:02/16/2024 Address:[address] [place], [place] [id number] Pcp:RANDA MORATAYA Subjective: * Chief Complaints: * [...] bacitracin topical zinc 500 units/g ointment 1 usdheer applied topically 2 times a day , [...] Electronic signature of NUVIA SANCHEZ DPM on 06/15/2024 at 10:47 AM EST Sign off status: Pending * Provider:?Gloria Sanchez D.P.M., Osvaldo.[email or web address]. Date:?02/16/2024 Generated for Rayshawn salazar/Kailyn/eTransmitting on:?06/15/2024 10:47 AM EST History and Physical Notes * [...] Touch: Present, Bilat Tinel Sign Absent, Bilat Mxaine's Sign: Absent, Bilat Musculoskeletal Foot Type: Pes [...]
--- OUTSIDE RECORDS SUMMARY | 2024-06-15 10:48 | XMS_ITS | Encounter Summary ---
Author Organization [facility] [place] [address] Care Team Providers Care Mult Au Matic Operator Name Role Phone Ana Her MD Primary Care Provider [phone] Encounter Details Date Type Department Care Team (Latest Contact Info) Description 04/03/2022 12:00 PM EST TH Visit (TeleHealth) [place] [address] Laura Will MD [facility] [place] [address] Status post repair of paraesophageal diaphragmatic hernia [...] status documented in this encounter Care Teams Mult Au Matic Operator Relationship Specialty Start Date End Date Ana Her MD [facility] [address] [place] [address] PCP - General 07/29/13 documented as of this encounter
--- OUTSIDE RECORDS SUMMARY | 2024-06-15 10:48 | XMS_ITS | Encounter Summary ---
[place] [address] Care Team Providers Care Risk And Insurance Manager Name Role Phone Ana Her MD Primary Care Provider [phone] Encounter Details Date Type Department Care Team (Late st Contact Info) Description 02/03/2023 Telephone [place] [id number] Maryam Barrett Social History Tobacco Use Types [...] on filedocumented in this encounter Care Teams Risk And Insurance Manager Relationship Specialty Start Date End Date Ana Her MD [address] [place] [address] PCP - General 07/29/13 documented as of this encounter
--- OUTSIDE RECORDS SUMMARY | 2024-06-15 10:48 | XMS_ITS | Continuity of Care Document ---
Author Organization [place] - [facility] [employer] [facility], [facility] [place] [address] Care Team Providers Care Assistant Plant Manager Name Role Phone GABINODC Electrical Automation Engineer [facility] Orthopedic Surgeon [phone] [facility] Sleep Medicine [facility] Sales Specialist Assessment No assessment recorded. Plan of Treatment Reminders Order Date Submit Date Provider Last Modified By Organization Details Last Modified Time Details Appointments None recorded. Lab BMP, serum or plasma 2023 024 [facility] (Registration ), [address] [place] [address] [place], [address], 4 11:42:49 vitamin D, 25-hydroxy , total, serum 2023 024 [facility] (Registration ), [address] [place] [address] [place], [address], 4 16:09:19 HbA1c (hemoglobi n A1c), blood 2023 024 [facility] (Registration ), [address] [place] [address] [place], [address], 4 11:39:49 TSH, serum, reflex free T4 2023 024 [facility] (Registration ), [address] [place] [address] [place], [address], 4 11:40:25 CBC 2023 024 [facility] (Registration ), [address] [place] [address] [place], [address], 4 15:08:25 ferritin, serum or plasma 2023 024 [facility] (Registration ), [address] [place] [address] [place], [address], 4 11:41:22 iron + total iron-lynn ng capacity (TIBC), serum 2023 024 [facility] (Registration ), [address] [place] [address] [place], [address], 4 11:43:17 Referral None recorded. Procedures None [...] humeral fracture 2023- MD [address], [place], [address] , [facility] 4 17:34:10 Hypothyr oidism 74501098 Active 1959 EVIE shaw, [facility] 4 10:29:59 Essentia l hyperten jason 42853345 Active 1959 EVIE shaw, [facility] 4 10:29:36 Hyperlip idemia 35144585 Active 1959 on statin MD [address], [place], [address] , [facility] 4 20:35:18 Spinal stenosis of lumbar region 70832346 Active 2012 s/p lumbar foramino parish L4 MD [address], [place], [address] , [facility] 4 20:36:41 Sleep apnea 83317427 Active 2012 on CPAP MD [address], [place], [address] , [facility] 4 20:39:31 Gastroes ophageal reflux disease without esophagi tis 103672371 Completed 195908/12/2023 Removal Reason: resolved with surgical repair of HH MD [address], [facility] [address] , [facility] 4 10:41:24 Family history of malignan t neoplasm of digestiv e organ 390621769 Active [address], [place], [address] , [facility] 4 20:37:03 Paresthe samir 46795232 Completed 201412/01/2014 11/28/19 15 - Comments only - Ana Her MD - check B12 and folate Problem Code: R20.2; Problem Code Type: ICD-10; Not Available [facility] 3 05:53:48 Adult health examinat ion Active [address], [place], [address] , [facility] 4 20:33:34 Pre-surg ruben evaluati on [...] Z01.818; Problem Code Type: ICD-10; Not Available [facility] 3 05:53:48 Localize d edema 606078999 Completed 201501/29/2016 12/13/19 16 - Comments only - Ana Her MD - and some on left as well, will check BMP. 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 Nusrat esparza for removal. Problem Code: L72.3; Problem Code Type: ICD-10; Not Available [facility] 3 05:53:49 Chronic ulcer of foot 404618301 Completed 201601/16/2017 12/18/19 17 - Comments only - Ana Her MD - Due to injury. This does appear to have some granulat ion tissue and to be healing. She is given a prescrip tion for Keflex to take only if erythema seems to be extendin g. Problem Code: L97.509; Problem Code Type: ICD-10; Not Available [facility] 3 05:53:49 Diarrhea 65509796 Completed 201602/10/2017 02/05/20 17 - Comments only - Ana Her MD - Persiste nt over several months, we will collect stool for C. 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 6 mm PT1NO E2P2 poistive , HER2 negative ANA HER MD [address], [place], [address] , [facility] 4 20:38:49 Pain in left lower limb 908343093 Active 2016 EVIE shaw [facility], [facility]. 4 10:32:00 Pain in thoracic spine 341078602 Active 2016 EVIE shaw [facility], [facility]. 4 10:32:06 Spasm 01543288 Active 2017 EVIE shaw [facility]. 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 Danica shaw, [facility]5 [employer] [facility] 4 14:36:02 Tachycar lea 4036901 Completed 201811/25/2018 Problem Code: R00.0; Problem Code Type: ICD-10; Not Available [facility] 3 05:53:51 Pre-surg ruben evaluati on Completed 201811/25/2018 Problem Code: Z01.818; Problem Code Type: ICD-10; Not Available [facility] 3 05:53:51 Iron deficien cy anemia 01254586 Active 2019 elevated MCV: normal B12 2021, normal folate 2018 IV iron 2023 EGD 01/2022 paraesop hageal hernia (since repaired ) colo 03/2017 normal ANA HER MD [address], [place], [address] , [facility] [employer] [facility] 4 11:44:45 Lumbago with sciatica 176320952 Completed 201903/16/2020 02/24/20 20 - Comments only - Vy Araujocarol Pinon [employer] - Likely aggravat ed by increase d [...] Code Type: ICD-10; Not Available [facility] 3 05:53:52 Right side sciatica 87730676068 9101 Active 2019 EVIE shaw, [facility] 4 10:33:09 Left side sciatica 01618210589 9104 Active [address], [place] [address] , [facility] 4 17:20:20 Diaphrag matic hernia 82506382 Completed 202108/11/2023 Removal Reason: s/p repair MD [address], [place] [address] , [facility] 4 20:50:39 History of SARS-CoV -2 46041979570 4603440 Completed 202104/04/2022 03/21/20 22 - Comments only - Ana Her MD - testing is negative today in the office. Still some fatigue but otherwis e recoveri ng. Did get MAB. Already had covid bivalent booster prior to illness Problem Code: Z86.16; Problem Code Type: ICD-10; Not Available [facility] 3 05:53:53 Diarrhea 01843628 Completed 202104/18/2022 Problem Code: R19.7; Problem Code Type: ICD-10; MD [address], [facility] [address] , [facility] 4 21:03:02 Radhain g mammogreduardo phy Completed 202208/11/[address], [facility] [address] , [facility] 4 20:36:56 Carpal tunnel syndrome of left wrist 29803300824 9102 Completed 202201/23/2023 Problem Code: G56.02; Problem Code Type: ICD-10; Not Available [facility] 4 05:37:46 Diarrhea 07173947 Active 2022 started colestip ol 01/[address], [place], [address] , [facility] 4 21:03:02 Carpal tunnel syndrome of right wrist 66937334306 9108 Completed 201803/19/2020 Problem Code: G56.01; Problem Code Type: ICD-10; Not Available [facility] 3 05:53:55 Pain of left knee joint 29311615925 4107 Completed 202107/30/2022 Problem Code: M25.562; Problem Code Type: ICD-10; Not Available [facility] 3 05:53:55 Hypersom korina 65862271 Completed 201311/27/2014 Problem Code: 780.54; Problem Code Type: ICD-9; Not Available [facility] 3 05:53:56 Screenin g for disorder Completed 201909/11/2021 Problem Code: Z13.9; Problem Code Type: ICD-10; Not Available [facility] 3 05:53:56 Anemia 289603867 Completed 201903/19/2020 Problem Code: D64.9; Problem Code Type: ICD-10; Not Available [facility] 3 05:53:56 Long-ter m current use of anticoag ulant 185100548 Completed 201709/01/2018 Problem Code: Z79.01; Problem Code Type: ICD-10; Not Available [facility] 3 05:53:57 Chronic rhinitis 07533917 Completed 202108/12/2021 Problem Code: J31.0; Problem Code Type: ICD-10; Not Available [facility] 3 05:53:57 Impaired fasting glycemia 573220802 Completed 201401/28/[address] [facility] 3 05:53:57 Fatigue 82731496 Completed 201903/19/2020 Problem Code: R53.83; Problem Code Type: ICD-10; Not Available [facility] 3 05:53:58 Upper respirat ory tract infectio n caused by Influenz a A 76887863502 9104 Completed 201707/02/2017 Problem Code: J09.x2; Problem Code Type: ICD-10; Not Available [facility] 3 05:53:59 Diarrhea 13774472 Completed 201709/01/2018 ANA HER MD [address], [place], [address] [facility] 4 21:03:02 Acute upper respirat ory infectio n 42880674 Completed 202108/26/2021 Problem Code: J06.9; Problem Code Type: ICD-10; Not Available [facility] 3 05:53:59 Pain in right foot 13775993763 9107 Completed 202207/30/2022 Problem Code: M79.671; Problem Code Type: ICD-10; Not Available [facility] 3 05:54:00 Breast composit ion 991197358 Completed 201601/28/2023 Not Available [facility] 3 05:54:00 Changes in skin texture 456609130 Completed 202207/30/2022 Problem Code: R23.4; Problem Code Type: ICD-10; Not Available [facility] 3 05:54:01 Spasm 31481607 Completed 201603/23/2017 Problem Code: R25.2; Problem Code Type: ICD-10; EVIE shaw [facility] 4 10:33:28 Hyperten sive disorder 05775642 Completed 11/28/19 15 - Comments only - Ana Her MD - [facility] ed, no change in medicati ons Not Available [facility] 3 05:54:03 Arthralg ia of the ankle and/or foot 628781763 Completed 201501/30/2016 Problem Code: M25.571; Problem Code Type: ICD-10; Not Available [facility] 3 05:54:03 Dyspnea 366767771 Completed 201903/19/2020 Problem Code: R06.02; Problem Code Type: ICD-10; [facility] 4 14:39:47 Trigger finger of right hand 84235321117 529831 Completed 201803/19/2020 Problem Code: M65.341; Problem Code Type: ICD-10; Not Available [facility] 3 05:54:06 Cough 39723961 Completed 202108/12/2021 Problem Code: R05.1; Problem Code Type: ICD-10; Not Available [facility] 3 05:54:06 At risk - finding 190894561 Completed 201811/11/2018 Problem Code: Z91.89; Problem Code Type: ICD-10; Not Available [facility] 3 05:54:06 Cough 96208111 Completed 201706/15/2017 Problem Code: R05; Problem Code Type: ICD-10; Not Available [facility] 3 05:54:07 Preopera tive cardiova scular examinat ion Completed 202112/18/2021 Problem Code: Z01.810; Problem Code Type: ICD-10; Not Available [facility] 3 05:54:08 Arterial bruit 58012888 Completed 202109/11/2021 Not Available [facility] 3 05:54:08 Gastroes ophageal reflux disease 662772800 Completed Not Available [facility] 3 05:54:09 Imaging of musculos keletal system abnormal 185626442 Completed 201603/23/2017 Problem Code: R93.7; Problem Code Type: ICD-10; Not Available [facility] 3 05:54:10 Blood glucose outside referenc e range 374468699 Completed 201503/20/2016 Problem Code: R73.09; Problem Code Type: ICD-10; Not Available [facility] 3 05:54:10 Abdomina l aortic aneurysm 631089656 Completed 195912/04/2014 Not Available [facility] 3 05:54:11 Lung field abnormal 873855309 Completed 202109/11/2021 Problem Code: R91.8; Problem Code Type: ICD-10; Not Available [facility] 3 05:54:11 Ingrowin g nail 938438561 Completed 201503/23/2017 Problem Code: L60.0; Problem Code Type: ICD-10; Not Available [facility] 3 05:54:11 Hypokale karyn 16082768 Completed 201504/17/2016 Problem Code: E87.6; Problem Code Type: ICD-10; Not Available [facility] 3 05:54:12 Spasm 57198415 Completed 202201/23/2023 Problem Code: M62.838; Problem Code Type: ICD-10; EVIE shaw, [facility]. 4 10:33:28 Aneurysm of ascendin g aorta 866307834 Active [address], [place], [address] , [facility]. 4 19:24:51 Bicuspid aortic valve 96696638 Active 2023 severe by ECHO 07/[address], [place], [address] , [facility]. 4 19:33:10 Osteopen ia 125382902 Active 2023 EVIE shaw [facility]. 4 10:28:13 Venous stasis 45458184 Active 2023 EVIE shaw [facility]. 4 10:29:14 Chronic kidney disease 601205462 Active 2017 Stage 3bA1v eGFR 42-[address], [place], [address] [place] [address] , [facility] 4 20:49:29 Dyspnea on exertion 53885201 Active 2018 Danica Felix colin, [facility] 4 14:39:44 Hiatal hernia 04788088 Completed 202108/11/2023 lap repair MD [address], [place] [address] , [facility] 4 20:51:15 Edema of lower extremit y 485724483 Active [address], [place] [address] , [facility] 4 20:55:49 Atrial fibrilla tion 07750593 Active 2016 s/p pulmonoa ry vein isolatio n 05/2018, chronic anticoag ulation with Xarelto MD [address], [place], [address] [place] [address] , [facility] 4 09:14:08 Obesity 712415628 Active [address], [place], [address] [place] [address] , [facility] 4 09:26:22 Cardiac pacemake r in situ 165315775 Active 2023 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 MD [address], [place] [address] , [facility] 4 09:13:49 Swelling of bilatera l lower limbs 003968164 Active [address], [place] [address] , [facility] 14:35:13 Problem Notes None recorded. Procedures Surgical History Date Name Laterality Status Provider Name and Address Organization Details Recorded Time 10/26/19 cardiac pacemaker procedure completed MD [address], [place], [address], [facility] 03/16/2024 16:33:27 10/20/19 transcatheter aortic valve implantation completed MD [address], [place], [address], [facility] 03/16/2024 16:32:53 Imaging Results None recorded. Procedure Notes None recorded. Medical Equipment None Reported. Allergies Allergen ID Allergen Name Allergen Category Reaction Reaction Severity Criticality Documentation Date Start Date Code Code System Note Provider Name and Address Organization Details Recorded Time 82198 amlodipin e medicatio n swelling severe high 11/18/2023 26404 RxNorm HIRA Hodge, [facility] 13:47:28 Medications Name Sig Start Date [...] 1 tab by mouth daily 06/02 [facility] Not Available Not Available [...] 1 gram tablet take 1-2 tablets BID active Not Available Not Available No t [...] Smoking Status Never Smoker KRYSTAL SKELTON LPN [facility], [place] - [facility]. 08/12/2023 07:44:55 Date Of Most Recent [...] And Wanted Help? (For Example, If You [place] Very Nervous, Lonely, Or Blue; Got Sick [...] LastModified Time Father Family history of stroke manan Not available 2022 04:00:48 Mother Family history [...] Details Recorded Time Pneumococcal conjugate PCV20, polysaccharide RUQ974 conjugate, adjuvant, PF 4 completed MD [address], [address] 08/12/2023 11:52:18 COVID-19, mRNA, LNP-S, PF, vanda-sucrose, 30 mcg/0.3 mL 4 completed MD [address], [address] 08/12/2023 11:52:18 COVID-19, mRNA, LNP-S, PF, vanda-sucrose, 30 mcg/0.3 mL 4 completed MD [address], [address] 03/04/2024 15:04:49 Tdap 1 completed Not Available [facility] 03/13/2023 06:18:37 Tdap 1 completed Not Available [facility] 03/13/2023 06:18:37 zoster live 5 completed Not Available [facility] 03/13/2023 06:18:37 Influenza, high-dose, trivalent, PF 8 completed Not Available [facility] 03/13/2023 06:18:38 Influenza, split virus, trivalent, preservative 6 completed Not Available [facility] 03/13/2023 06:18:38 Pneumococcal Conjugate, unspecified formulation 5 completed Not Available [facility] 03/13/2023 06:18:38 Influenza, split virus, quadrivalent, preservative 7 completed Not Available [facility] 03/13/2023 06:18:38 Influenza, high-dose, quadrivalent, PF 2 completed Not Available [facility] 03/13/2023 06:18:38 Influenza, high-dose, quadrivalent, PF 1 completed Not Available [facility] 03/13/2023 06:18:38 Influenza, high-dose, quadrivalent, PF 0 completed Not Available [facility] 03/13/2023 06:18:38 COVID-19, mRNA, LNP-S, PF, 100 mcg/0.5mL dose or 50 mcg/0.25mL dose 1 completed Not Available [facility] 03/13/2023 06:18:38 COVID-19, mRNA, LNP-S, PF, 100 mcg/0.5mL dose or 50 mcg/0.25mL dose 1 completed Not Available [facility] 03/13/2023 06:18:39 COVID-19, mRNA, LNP-S, PF, 100 mcg/0.5mL dose or 50 mcg/0.25mL dose 1 completed Not Available [facility] 03/13/2023 06:18:39 COVID-19, mRNA, LNP-S, bivalent, PF, 30 mcg/0.3 mL dose 2 completed Not Available [facility] 03/13/2023 06:18:39 pneumococcal polysaccharide PPV23 1 completed Not Available [facility] 03/13/2023 06:18:39 influenza, unspecified formulation 6 completed Not Available [facility] 03/13/2023 06:18:39 influenza, unspecified formulation 4 completed Not Available [facility] 03/13/2023 06:18:39 Influenza, high-dose, quadrivalent, PF 3 completed Not Available [facility] 05/15/2023 05:33:16 Past Encounters Encounter ID Performer Location Encounter Start Date Encounter Closed Date Diagnosis/Indication Diagnosis SNOMED-CT Code Diagnosis ICD10 Code Diagnosis Note [id number] Samantha Razo RN [address] [place] [place] [address] 04/18/2024 10:14:04 04/18/2024 10:46:21 Osteoporotic fracture 20896584 M80.00XD Hypothyroidism 85726505 E03.9 Iron defic iency anemia 68309692 D50.9 Chronic ki dney disease 882001394 N18.9 Prediabetes 302910763 R7 3.03 Health Concerns Section Related Observation LastModified by Organization Detai ls LastModified Time None Recorded Concern Status LastModified by Organization Details LastModified Time None Recorded Payers Encounter Date Sequence Insurance Name Policy Number Policy Palacio Covered Member ID Palacio Member ID Guarantor Name 04/18/2024 1 [place] [employer] Digna Olson [id number] Digna Olson 04/18/2024 2 [place] [facility] [id number] Digna Olson [id number] Digna Olson OBGyn Episode No OBEpisode recorded.
--- OUTSIDE RECORDS SUMMARY | 2024-06-15 10:48 | XMS_ITS | Clinical Summary ---
Author Organization [facility] [place] [address] Care Team Providers Care Vb Developer Name Role Phone Ana Her MD Primary Care Provider [phone] Allergies No known active allergies Medications Medication [...] and has been managed by [facility]. She has [...] - TT3 and FT4 nl - My APPLIED EXERCISE PHYSIOLOGIST colleague called and spoke with covering MD [...] history exists Medical Devices Implanted Type Area Counter Molder Device Identifier Shelf Expiration Date Model / Serial / Lot Breast Clip-02/26/20 17 Implanted: by Enzo Burkett MD (Quantity not on file) Breast Clip Left: Breast Bard - 0614 05/04/2019 [employer] ULTRACOR BREAST TISSUE MARKER ULTRASOUND ENHANCED BLANCA / / [id number] Description:BLANCA Procedures Procedure Name Priority Date/Time Associated [...] who have questions please contact the health insurance healthcare consultant that requested your imaging first. ? Electronically signed by: Digna Noel MD, [facility] ([phone]), at 06/11/2021 9:20 AM Jeanine Lobato DECK LID FITTER IMG MAMMO ORD ERABLES * DXA Central [...] BMD measurements and plots are available in [employer] under the imaging tab. Paper copies will be sent to providers without [employer] access. If you have received this report without the data sheet and do not have access to [employer], please contact Radiology Rewards Consultant at [phone] Thursday thru Thursday 8am-4pm. Thank you for letting us participate in the care of this patient. ??If you are a health care provider and have any questions regarding this report, please contact the number below. ??For patients who have questions please contact the health insurance healthcare consultant that requested your imaging first. ? Electronically signed by: Nat Epperson MD, [facility] ([phone]), at 11/19/2020 1:09 PM Narrative 11/19/2020 1:09 [...] BMD measurements and plots are available in [employer] the imaging tab. Paper copies will be sent to providers without E- access.If you have received this report without the data sheet and do not haveaccess to E-, please contact Radiology Rewards Consultant at [phone] Thursday thrriday 8am-4pm. Thank you for letting us participate in the care of this patient. If youare a health care provider and have any questions regarding this report,please contact the number below. For patients who have questions please contactthe health insurance healthcare consultant that requested your imaging first. Ricky [...] Status decision made by: Patient Care Teams Vb Developer Relationship Specialty Start Date End Date Ana Her MD [employer] [address] [place] [address] PCP - General 07/29/13
--- OUTSIDE RECORDS SUMMARY | 2024-06-15 10:48 | XMS_ITS | Continuity of Care Document ---
Author Organization [place] - [facility], [facility] Address Geovany Yeung [facility] [address] Care Team Providers Care Sports Physiologist Name Role Phone GABINODC Carrot Buncher [facility] Orthopedic Surgeon [phone] [facility] DISORD[facility] Sleep Medicine [facility] POD[facility] [employer] Assessment Encounter Date Assessment Date Assessment LastModified by Organization Details LastModified Time 05/23/2024 05/23/2024 The total time devoted to today's encounter, including both the [id number] time with the patient and/or family/caregi josefina and fqf-vuir-[id number] patrick time I personally spent is 42 [...] at rehab and was negative. 2024 025 [facility], [address], [place], [address], 09:45:21 Procedures None recorded. Surgeries None recorded. Imaging None recorded. Medication Orders colestipol 1 gram tablet 2024 [facility], [address] [place] [address], [facility] [address], [place], [address], 14:26:17 carvedilol 25 mg tablet 2024 [facility], [address] [place] [address], [facility], [place], [address], 14:26:15 Patient TargetsNo targets recorded. Patient InstructionsNo instructions recorded. 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 Referral for Chronic diarrhea You saw [...] humeral fracture 2023- MD [address], [place], [address] , [facility] 4 17:34:10 Hypothyr oidism 56800891 Active 1959 EVIE shaw, [facility] 4 10:29:59 Essentia l hyperten jason 33933451 Active 1959 EVIE shaw, [facility] 4 10:29:36 Hyperlip idemia 98756336 Active 1959 on statin MD [address], [place], [address] , [facility] 4 20:35:18 Spinal stenosis of lumbar region 58494940 Active 2012 s/p lumbar foramino parish L4 MD [address], [place], [address] , [facility] 4 20:36:41 Sleep apnea 62682588 Active 2012 on CPAP MD [address], [place], [address] , [facility] 4 20:39:31 Gastroes ophageal reflux disease without esophagi tis 819430941 Completed 195908/12/2023 Removal Reason: resolved with surgical repair of HH MD [address], [place], [address] , [facility] 4 10:41:24 Family history of malignan t neoplasm of digestiv e organ 056270544 Active [address], [place], [address] , [facility] 4 20:37:03 Paresthe samir 45178161 Completed 201412/01/2014 11/28/19 15 - Comments only - Ana Her MD - check B12 and folate Problem Code: R20.2; Problem Code Type: ICD-10; Not Available [facility] 3 05:53:48 Adult health examinat ion Active [address], [place], [address] , [facility] 4 20:33:34 Pre-surg [...] Code Type: ICD-10; Not Available [facility] 3 05:53:48 Localize d edema 521513714 Completed 201501/29/2016 12/13/19 16 - Comments only - Ana Her MD - and some on left as well, will check BMP. 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 Nusrat holt for removal. Problem Code: L72.3; Problem Code Type: ICD-10; Not Available [facility] 3 05:53:49 Chronic ulcer of foot 233989743 Completed 201601/16/2017 12/18/19 17 - Comments only - Ana Her MD - Due to injury. This does appear to have some granulat ion tissue and to be healing. She is given a prescrip tion for Keflex to take only if erythema seems to be extendin g. Problem Code: L97.509; Problem Code Type: ICD-10; Not Available [facility] 3 05:53:49 Diarrhea 08958470 Completed 201602/10/2017 02/05/20 17 - Comments only - Ana Her MD - Persiste nt over several months, we will collect stool for C. 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 6 mm PT1NO E2P2 poistive , HER2 negative MD [address], [place], [address] , [facility] 4 20:38:49 Pain in left lower limb 018954099 [facility] 2016 [facility] 4 10:32:00 Pain in thoracic spine 413489572 Active 2016 [facility] 4 10:32:06 Spasm 51557251 Active 2017 [facility] 4 10:33:28 Abdomina l distensi on, gaseous 356700397 Completed 201703/08/2018 Problem Code: R14.0; Problem Code Type: ICD-10; Not Available [facility] 3 05:53:50 Cellulit is of toe 52657587 Completed 201808/12/2018 Problem Code: L03.039; Problem Code Type: ICD-10; Not Available [facility] 3 05:53:51 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 2018 [facility] 4 14:36:02 Tachycar lea 4115990 Completed 201811/25/2018 Problem Code: R00.0; Problem Code Type: ICD-10; Not Available [facility] 3 05:53:51 Pre-surg ruben evaluati on Completed 201811/25/2018 Problem Code: Z01.818; Problem Code Type: ICD-10; Not Available [facility] 3 05:53:51 Iron deficien cy anemia 81765757 Active 2019 elevated MCV: normal B12 2021, normal folate 2018 IV iron 2023 EGD 01/2022 paraesop hageal hernia (since repaired ) colo 03/[address] MD [address], [place], [address] , [facility]. 4 11:44:45 Lumbago with sciatica 257503780 Completed 201903/16/2020 02/24/20 20 - Comments only - Vy Pinon [employer] SERV[employer] ADVISER - Likely aggravat ed by increase d [...] M54.40; Problem Code Type: ICD-10; Not Available [facility] 3 05:53:52 Right side sciatica 88719295617 9101 Active 2019 EVIE HOOPER [facility] 4 10:33:09 Left side sciatica 98067467485 9104 Active [address], [place], [address] , [facility] 4 17:20:20 Diaphrag matic hernia 38031776 Completed 202108/11/2023 Removal Reason: s/p repair MD [address], [place], [address] , [facility] 4 20:50:39 History of SARS-CoV -2 02644379561 7481473 Completed 202104/04/2022 03/21/20 22 - Comments only - Ana Her MD - testing is negative today in the office. Still some fatigue but otherwis e recoveri ng. Did get MAB. Already had covid bivalent booster prior to illness Problem Code: Z86.16; Problem Code Type: ICD-10; Not Available [facility] 3 05:53:53 Diarrhea 97041867 Completed 202104/18/2022 Problem Code: R19.7; Problem Code Type: ICD-10; MD [address], [facility] [address] , [facility] 4 21:03:02 Screenin g mammogra phy Completed 202208/11/[address], [address] , [facility] 4 20:36:56 Carpal tunnel syndrome of left wrist 34821158078 9102 Completed 202201/23/2023 Problem Code: G56.02; Problem Code Type: ICD-10; Not Available [facility] 4 05:37:46 Diarrhea 83012028 Active 2022 started colestip ol 01/[address], [facility] [address] , [facility] 4 21:03:02 Carpal tunnel syndrome of right wrist 98845511466 9108 Completed 201803/19/2020 Problem Code: G56.01; Problem Code Type: ICD-10; Not Available [facility] 3 05:53:55 Pain of left knee joint 46851508519 4107 Completed 202107/30/2022 Problem Code: M25.562; Problem Code Type: ICD-10; Not Available [facility] 3 05:53:55 Hypersom korina 74016776 Completed 201311/27/2014 Problem Code: 780.54; Problem Code Type: ICD-9; Not Available [facility] 3 05:53:56 Screenin g for disorder Completed 201909/11/2021 Problem Code: Z13.9; Problem Code Type: ICD-10; Not Available [facility] 3 05:53:56 Anemia 517844235 Completed 201903/19/2020 Problem Code: D64.9; Problem Code Type: ICD-10; Not Available [facility] 3 05:53:56 Long-ter m current use of anticoag ulant 577396439 Completed 201709/01/2018 Problem Code: Z79.01; Problem Code Type: ICD-10; Not Available [facility] 3 05:53:57 Chronic rhinitis 20174404 Completed 202108/12/2021 Problem Code: J31.0; Problem Code Type: ICD-10; Not Available [facility] 3 05:53:57 Impaired fasting glycemia 010246246 Completed 201401/28/2023 Not Available [facility] 3 05:53:57 Fatigue 00231761 Completed 201903/19/2020 Problem Code: R53.83; Problem Code Type: ICD-10; Not Available [facility] 3 05:53:58 Upper respirat ory tract infectio n caused by Influenz a A 36370968170 9104 Completed 201707/02/2017 Problem Code: J09.x2; Problem Code Type: ICD-10; Not Available [facility] 3 05:53:59 Diarrhea 68462876 Completed 201709/01/2018 ANA HER MD [facility] [address], [place], [address] , [facility]. 4 21:03:02 Acute upper respirat ory infectio n 42163713 Completed 202108/26/2021 Problem Code: J06.9; Problem Code Type: ICD-10; Not Available [facility] 3 05:53:59 Pain in right foot 08709076755 9107 Completed 202207/30/2022 Problem Code: M79.671; Problem Code Type: ICD-10; Not Available [facility] 3 05:54:00 Breast composit ion 444404792 Completed 201601/28/2023 Not Available [facility] 3 05:54:00 Changes in skin texture 226035208 Completed 202207/30/2022 Problem Code: R23.4; Problem Code Type: ICD-10; Not Available [facility] 3 05:54:01 Spasm 56526206 Completed 201603/23/2017 Problem Code: R25.2; Problem Code Type: ICD-10; EVIE RUFUS shaw, [facility] 4 10:33:28 Hyperten sive disorder 48153487 Completed 11/28/19 15 - Comments only - Ana Her MD - [facility] ed, no change in medicati ons Not Available [facility] 3 05:54:03 Arthralg ia of the ankle and/or foot 259467454 Completed 201501/30/2016 Problem Code: M25.571; Problem Code Type: ICD-10; Not Available [facility] 3 05:54:03 Dyspnea 415797506 Completed 201903/19/2020 Problem Code: R06.02; Problem Code Type: ICD-10; Danica Sechadwick shaw, [facility] 4 14:39:47 Trigger finger of right hand 66030453787 050000 Completed 201803/19/2020 Problem Code: M65.341; Problem Code Type: ICD-10; Not Available [facility] 3 05:54:06 Cough 62000609 Completed 202108/12/2021 Problem Code: R05.1; Problem Code Type: ICD-10; Not Available [facility] 3 05:54:06 At risk - finding 849332906 Completed 201811/11/2018 Problem Code: Z91.89; Problem Code Type: ICD-10; Not Available [facility] 3 05:54:06 Cough 57078823 Completed 201706/15/2017 Problem Code: R05; Problem Code Type: ICD-10; Not Available [facility] 3 05:54:07 Preopera tive cardiova scular examinat ion Completed 202112/18/2021 Problem Code: Z01.810; Problem Code Type: ICD-10; Not Available [facility] 3 05:54:08 Arterial bruit 37251343 Completed 202109/11/2021 Not Available [facility] 3 05:54:08 Gastroes ophageal reflux disease 866942863 Completed Not Available [facility] 3 05:54:09 Imaging of musculos keletal system abnormal 861380616 Completed 201603/23/2017 Problem Code: R93.7; Problem Code Type: ICD-10; Not Available [facility] 3 05:54:10 Blood glucose outside referenc e range 858797380 Completed 201503/20/2016 Problem Code: R73.09; Problem Code Type: ICD-10; Not Available [facility] 3 05:54:10 Abdomina l aortic aneurysm 851357700 Completed 195912/04/2014 Not Available [facility] 3 05:54:11 Lung field abnormal 945897676 Completed 202109/11/2021 Problem Code: R91.8; Problem Code Type: ICD-10; Not Available [facility] 3 05:54:11 Ingrowin g nail 918632000 Completed 201503/23/2017 Problem Code: L60.0; Problem Code Type: ICD-10; Not Available [facility] 3 05:54:11 Hypokale karyn 15593392 Completed 201504/17/2016 Problem Code: E87.6; Problem Code Type: ICD-10; Not Available [facility] 3 05:54:12 Spasm 30873172 Completed 202201/23/2023 Problem Code: M62.838; Problem Code Type: ICD-10; EVIE shaw [facility] 4 10:33:28 Aneurysm of ascendin g aorta 773560063 Active [address], [place], [address] , [facility] 4 19:24:51 Bicuspid aortic valve 59646234 Active 2023 severe by ECHO 07/[address], [place], [address] , [facility] 4 19:33:10 Osteopen ia 465013584 Active 2023 EVIE shaw, [facility] 4 10:28:13 Venous stasis 11060019 Active 2023 EVIE shaw, [facility] 4 10:29:14 Chronic kidney disease 931013071 Active 2017 Stage 3bA1v eGFR 42-[address], [place], [address] , [facility] 4 20:49:29 Dyspnea on exertion 68207416 Active 2018 Danica chadwick shaw, [facility] 4 14:39:44 Hiatal hernia 43158942 Completed 202108/11/2023 lap repair MD [address], [place], [address] , [facility] 4 20:51:15 Edema of lower extremit y 892921502 Active [address], [place], [address] , [facility] 4 20:55:49 Atrial fibrilla tion 13845862 Active 2016 s/p pulmonoa ry vein isolatio n 05/2018, chronic anticoag ulation with Xarelto MD [address], [place], [address] , [facility] 4 09:14:08 Obesity 044427094 Active [address], [address] 4 09:26:22 Cardiac pacemake r in situ 613862381 Active 2023 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 MD [address], [address] 4 09:13:49 Swelling of bilatera l lower limbs 343121779 Active [address], [address] 14:35:13 Problem Notes None recorded. Procedures Surgical History Date Name Laterality Status Provider Name and Address Organization Details Recorded Time 10/26/19 cardiac pacemaker procedure completed MD [address], [address] 03/16/2024 16:33:27 10/20/19 transcatheter aortic valve implantation completed MD [address], [address] 03/16/2024 16:32:53 Imaging Results None recorded. Procedure Notes None recorded. Medical Equipment None Reported. Allergies Allergen ID Allergen Name Allergen Category Reaction Reaction Severity Criticality Documentation Date Start Date Code Code System Note Provider Name and Address Organization Details Recorded Time 95815 amlodipin e medicatio n swelling severe high 11/18/2023 19864 RxNorm Shaneka Herrera MA null, [facility] 13:47:28 Medications Name Sig Start [...] 1 tab by mouth daily 06/02 completed [employer] [facility] Not Available Not [...] 1 tab by mouth daily 2013 active [facility] re Not Available Not Available Not Available gabapenti n 100 mg capsule Take 1 cap by mouth three times daily 2015 active Not Available Not Available Not Avai lable metoprolo l succinate ER 25 mg tablet,ex tended release 24 hr Take 1 tab by mouth daily 2017 active HTPca re Not Available Not Available Not Available [...] Updated DateTime 5 164.34 cm 28.7 kg/m2 48656.3 g 97 [degF] 82 /min 18 /min 128 mm[Hg] 72 mm[Hg] KRYSTAL SKELTON LPN [facility] 13:47:58 Social History Question Answer Notes LastModified by Organizat ion Details LastModified Time Tobacco Smoking Status Never Smoker KRYSTAL SKELTON LPN [facility] 08/12/2023 07:44:55 Date Of Most Recent [...] And Wanted Help? (For Example, If You Stuart Very Nervous, Lonely, Or Blue; Got Sick [...] Safety Concerns In Your Home (see Attached [facility] Pamphlet)? No Information not available 08/12/2023 How [...] Details Recorded Time Pneumococcal conjugate PCV20, polysaccharide DDT070 conjugate, adjuvant, PF 4 completed MD [address], [address] 08/12/2023 11:52:18 COVID-19, mRNA, LNP-S, PF, vanda-sucrose, 30 mcg/0.3 mL 4 completed MD [address], [address] 08/12/2023 11:52:18 COVID-19, mRNA, LNP-S, PF, vanda-sucrose, 30 mcg/0.3 mL 4 completed MD [address], [address] 03/04/2024 15:04:49 Tdap 1 completed Not Available [facility] 03/13/2023 06:18:37 Tdap 1 completed Not Available [facility] 03/13/2023 06:18:37 zoster live 5 completed Not Available [facility] 03/13/2023 06:18:37 Influenza, high-dose, trivalent, PF 8 completed Not Available [facility] 03/13/2023 06:18:38 Influenza, split virus, trivalent, preservative 6 completed Not Available [facility] 03/13/2023 06:18:38 Pneumococcal Conjugate, unspecified formulation 5 completed Not Available [facility] 03/13/2023 06:18:38 Influenza, split virus, quadrivalent, preservative 7 completed Not Available [facility] 03/13/2023 06:18:38 Influenza, high-dose, quadrivalent, PF 2 completed Not Available [facility] 03/13/2023 06:18:38 Influenza, high-dose, quadrivalent, PF 1 completed Not Available [facility] 03/13/2023 06:18:38 Influenza, high-dose, quadrivalent, PF 0 completed Not Available [facility] 03/13/2023 06:18:38 COVID-19, mRNA, LNP-S, PF, 100 mcg/0.5mL dose or 50 mcg/0.25mL dose 1 completed Not Available [facility] 03/13/2023 06:18:38 COVID-19, mRNA, LNP-S, PF, 100 mcg/0.5mL dose or 50 mcg/0.25mL dose 1 completed Not Available [facility] 03/13/2023 06:18:39 COVID-19, mRNA, LNP-S, PF, 100 mcg/0.5mL dose or 50 mcg/0.25mL dose 1 completed Not Available [facility] 03/13/2023 06:18:39 COVID-19, mRNA, LNP-S, bivalent, PF, 30 mcg/0.3 mL dose 2 completed Not Available [facility] 03/13/2023 06:18:39 pneumococcal polysaccharide PPV23 1 completed Not Available [facility] 03/13/2023 06:18:39 influenza, unspecified formulation 6 completed Not Available [facility] 03/13/2023 06:18:39 influenza, unspecified formulation 4 completed Not Available [facility] 03/13/2023 06:18:39 Influenza, high-dose, quadrivalent, PF 3 completed Not Available [facility] 05/15/2023 05:33:16 Past Encounters Encounter ID Performer Location Encounter Start Date Encounter Closed Date Diagnosis/Indication Diagnosis SNOMED-CT Code Diagnosis ICD10 Code Diagnosis Note [id number] ANA HER MD [facility] [address] [place] [address] 05/23/2024 13:45:51 05/23/2024 14:12:00 Chronic diarrhea 323876544 K52.9 titrate up the colestipol . Referral back to GI to discuss colonoscop y Atrial fibrillation 4943 6004 I48.91 She has possible ablation scheduled and follow up with EP, will request her recent cardiovers ion admission records. Diarrhea 35074538 R19.7 Essential hypertension 72035333 I10 well controlled , no change in medication s. Hypothyroidism 61571921 E03.9 recent TSH now in range. Slightly high, but given afib and weight loss, no reason to titrate dose. Iron defic iency anemia 87903898 D50.9 s/p IV iron during her last rehab stay, both H/H and iron stores have improved. Weight loss 14280757 R63 .4 most likely due to avoiding [...] ID Guarantor Name 05/23/2024 1 MEDICARE B-[place]: [employer] Digna Allan Whitney [id number] Digna Olson 05/23/2024 2 [place]: [facility] [id number] Digna Allan Whitney [id number] Digna Olson Notes Date Note Type Note Provider Name and Address Organization Details Recorded Time 05/23/2024 text/html Here for follow up of multiple problems as noted below:Labs reviewed. Atrial fibrillation-she underwent another cardioversion on May 05. Apparently has an appointment for an ablation in mid June, and to follow-up with the program management specialist in [place] in July. She has been going to [...] virtual pacer checks other than visits in [place] s/p TAVR-she is sleeping in bed with [...] No longer taking oral iron. Had seen [facility] about colonoscopy due to diarrhea, but appears that was postponed due to her aortic stenosis/TAVR... repeat CBC and iron studies were reassuring, all improved. prediabetes- A1C was back in the normal range at 5.4% ANA HER MD [address], [place], [address], [place] [facility]. 05/23/2024 15:51:12 OBGyn Episode No OBEpisode recorded.
--- OUTSIDE RECORDS SUMMARY | 2024-06-15 10:48 | XMS_ITS | Encounter Summary ---
[place] [address] Care Team Providers Care Datastage Consultant Name Role Phone Ana Her MD Primary Care Provider [phone] Encounter Details Date Type Department Care Team (Late st Contact Info) Description 10/23/2022 Telephone Mammography/[place] [phone] [place] Social History Tobacco Use Types [...] on filedocumented in this encounter Care Teams Datastage Consultant Relationship Specialty Start Date End Date Ana Her MD [address] [place] [address] PCP - General 07/29/13 documented as of this encounter
--- OUTSIDE RECORDS SUMMARY | 2024-06-15 10:48 | XMS_ITS | Encounter Summary ---
Author Organization [facility] [place] [address] Care Team Providers Care Digester Cook Name Role Phone Ana Her MD Primary Care Provider [phone] Encounter Details Date Type Department Care Team (Late st Contact Info) Description 03/09/2022 11:00 PM EST Ancillary Procedure Radiology Library [facility] [place] [address] Ana Her MD [address] [place] [address] [facility] [address] [place], [place] [id number] Social History Tobacco Use Types Packs/Day Years [...] CT Chest (03/09/2022 10:56 PM EST) Narrative [facility] - 03/09/2022 10:56 PM EST This exam is auto-finalizing. It's purpose is for storage only. Ana Her MD IM FILM LIBRARY ORD ERABLES [place], [place] documented in this encounter Visit Diagnoses Not on filedocumented in this encounter Care Teams Digester Cook Relationship Specialty Start Date End Date Ana Her MD [address] [facility] [address] [place] [address] PCP - General 07/29/13 documented as of this encounter
--- OUTSIDE RECORDS SUMMARY | 2024-06-15 10:48 | XMS_ITS | Encounter Summary ---
Author Organization [facility] [place] [address] Care Team Providers Care Fisher Reef Net Name Role Phone Ana Her MD Primary Care Provider [phone] Encounter Details Date Type Department Care Team (Late st Contact Info) Description 03/10/2022 1:35 AM EST Ancillary Procedure Radiology Library at [facility] [place] [address] Ana Her MD [address] [place] [address] [facility] [address] [place], [place] [id number] Social History Tobacco Use Types Packs/Day Years [...] Her MD IM FILM LIBRARY ORD ERABLES [place], [place] documented in this encounter Visit Diagnoses Not on filedocumented in this encounter Care Teams Fisher Reef Net Relationship Specialty Start Date End Date Ana Her MD [facility] [address] [facility] [address] [place] [address] PCP - General 07/29/13 documented as of this encounter
--- OUTSIDE RECORDS SUMMARY | 2024-06-15 10:48 | XMS_ITS | Encounter Summary ---
Author Organization [facility] [place] [address] Care Team Providers Care Postmaster Name Role Phone Ana Her MD Primary Care Provider [phone] Encounter Details Date Type Department Care Team (Late st Contact Info) Description 03/09/2022 Telephone [place] [address] Prakash Mendez MD [facility] [place] [address] Social History Tobacco Use Types Packs/Day Years [...] the mobile number listed in her chart ([phone]). Her other daughter answered the phone and reported that she had just dropped her off in the Emergency Department at [facility] and parked the car. She was walking back to the building to be with her. I reassured her that going to the Emergency Department seemed like a reasonable plan. I assured her that we are always happy to see her here at [facility] [place] anytime and that they could call back anytime with further questions or concerns. This note will be routed to the provider mentioned above. Prakash Mendez MD documented in this encounter Plan of Treatment Not on file documented as of this encounter Visit Diagnoses Not on filedocumented in this encounter Care Teams Postmaster Relationship Specialty Start Date End Date Ana Her MD [address] [place] [address] PCP - General 07/29/13 documented as of this encounter
--- OUTSIDE RECORDS SUMMARY | 2024-06-15 10:49 | XMS_ITS | Encounter Summary ---
[place] [address] Care Team Providers Care Tobacco Sample Puller Name Role Phone Ana Her MD Primary Care Provider [phone] Encounter Details Date Type Department Care Team (Late st Contact Info) Description 12/17/2021 Telephone [place] [id number] Roma Estrada RN Social History Tobacco Use [...] on filedocumented in this encounter Care Teams Tobacco Sample Puller Relationship Specialty Start Date End Date Ana Her MD [address] [place] [address] PCP - General 07/29/13 documented as of this encounter
--- OUTSIDE RECORDS SUMMARY | 2024-06-15 10:49 | XMS_ITS | Encounter Summary ---
Author Organization [place] [address] Care Team Providers Care Micropaleontologist Name Role Phone Ana Her MD Primary Care Provider [phone] Encounter Details Date Type Department Care Team (Late st Contact Info) Description 01/08/2022 7:42 AM EDT Anesthesia Event [place] [address] [facility] DR [place]ES[place] [address] Anesthesia Record Procedure Summary Procedure Name Responsible [...] cephalic vein (lateral side of arm), left; ysqi-lgt-ndwqdd catheter system; Anatomical Landmarks; 20 gauge; Joslyn [...] Procedure Summary Date: 01/08/22 Room / Location: [address] MAIN OR Anesthesia Start: 741 Anesthesia Stop: 825 Procedure: EGD, UPPER GI ENDOSCOPY (N/A Trunk) Diagnosis: (Hiatal hernia) Surgeons: Laura Will MD Responsible Provider: Alisa Naqvi MD Anesthesia Type: general ASA Status: 3 All Anesthesia Providers: Anesthesiologist: Alisa Naqvi MD Ship Purser: Nghia Valerio MD Vitals Value Taken Time [...] of left breast of female, estrogen receptor thdjsgyu22/25/2017 ??? Bicuspid aortic valve 06/10/2016 ??? Dyspnea [...] performed by Malika Chen MD at [facility] MAIN OR ??? PRO INTRAOP SENTINEL LYMPH ID W/DYE INJECTION Left 03/30/2017 INTRAOPERATIVE ID (MAPPING) SENTINEL LYMPH NODE,INCLUDES INJECTION (WRVU 2.5) performed by Malika Chen MD at [facility] MAIN OR ??? PRO MASTECTOMY PARTIAL Left 03/30/2017 MASTECTOMY PARTIAL (WRVU 10.13) performed by Malika Chen MD at [facility] MAIN OR Social History Tobacco [...] mg documented in this encounter Care Teams Micropaleontologist Relationship Specialty Start Date End Date Ana Her MD [address] [facility] [place] [address] PCP - General 07/29/13 documented as of this encounter
--- OUTSIDE RECORDS SUMMARY | 2024-06-15 10:49 | XMS_ITS | Encounter Summary ---
[place] [address] Care Team Providers Care Distributor Cleaner Name Role Phone Ana Her MD Primary Care Provider [phone] Encounter Details Date Type Department Care Team (Late st Contact Info) Description 11/01/2021 Telephone [place] [phone] Chelsie Lauren Social History Tobacco Use Types [...] on filedocumented in this encounter Care Teams Distributor Cleaner Relationship Specialty Start Date End Date Ana Her MD [address] [place] [address] PCP - General 07/29/13 documented as of this encounter
--- OUTSIDE RECORDS SUMMARY | 2024-06-15 10:49 | XMS_ITS | Encounter Summary ---
Author Organization [facility] [place] [address] Care Team Providers Care Professional Skateboarder Name Role Phone Ana Her MD Primary Care Provider [phone] Encounter Details Date Type Department Care Team (Latest Contact Info) Description 06/11/2021 8:41 AM EST - 06/11/2021 11:59 PM [facility] Hospital Encounter Mammography/[place] [phone] Jeanine Lobato APRN [facility] [place] [address] Malignant neoplasm of lower-outer quadrant of left [...] Take 40 mg by mouth daily. omega 4-ozh-isz-fish-turm salty 417 mg-120 mg- 276 mg-600 mg [...] who have questions please contact the health respiratory care specialist that requested your imaging first. ? Jeanine Lobato RESPIRATORY PHYSICIAN IMG MAMMO ORD ERABLES documented in this encounter Visit Diagnoses Diagnosis Malignant neoplasm of lower-outer quadrant of left breast of female, estrogen receptor positive Breast cancer screening by mammogram documented in this encounter Care Teams Professional Skateboarder Relationship Specialty Start Date End Date Ana Her MD [address] [place] [address] PCP - General 07/29/13 documented as of this encounter
--- OUTSIDE RECORDS SUMMARY | 2024-06-15 10:49 | XMS_ITS | Encounter Summary ---
Author Organization [facility] [place] [address] Care Team Providers Care Structural Metal Worker Name Role Phone Ana Her MD Primary Care Provider [phone] 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 * Diagnostic Test (Routine) - Closed Specialty Diagnoses / Procedures Referred By Christiano hackett Referred To Contact Radiology Diagnoses Malignant neoplasm of lower-outer quadrant of left breast of female, estrogen receptor positive Osteopenia of neck of femur, unspecified laterality shelter current use of aromatase inhibitor Procedures DXA Central Spine, Hip, and/or Whole Body (Generic) Ricky Lowry MD [facility] DR HEMATOLOGY/[place] [address] [facility] Rad Xray [address] [place] [address] [place] [address] Referral ID Status Reason Start Date Expiration Date V isits Requested Visits Authorized [id number] Closed Specialty Service Requested 05/22/2020 11/19/2021 1 1 Encounter Details Date Type Department Care Team (Late st Contact Info) Description 05/22/2020 1:15 PM EST Office Visit Hematology and Oncology at [facility] [place] [address] Ricky Lowry MD Malignant neoplasm of lower-outer quadrant of left breast of female, estrogen receptor positive; Osteopenia of neck of femur, unspecified laterality; 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 Paper copies will be sent to providers without [employer] access. If you have received this report without the data sheet and do not have access to [employer], please contact Radiology [facility] at [phone] Thursday thru Thursday 8am-4pm. Thank you for letting us participate in the care of this patient. ??If you are a health care provider and have any questions regarding this report, please contact the number below. ??For patients who have questions please contact the health childcare director that requested your imaging first. ? Electronically signed by: Nat Epperson MD, [facility] ([phone]), at 11/19/2020 1:09 PM Narrative 11/19/2020 1:09 [...] BMD measurements and plots are available in [email or web address] the imaging tab. Paper copies will be sent to providers without [employer] access.If you have received this report without the data sheet and do not haveaccess to [employer], please contact Radiology Meter Tester Primary at [phone] Thursday thruFriday 8am-4pm. Thank you for letting [...] inhibitors documented in this encounter Care Teams Structural Metal Worker Relationship Specialty Start Date End Date Ana Her MD [address] [place] [address] PCP - General 07/29/13 documented as of this encounter
--- OUTSIDE RECORDS SUMMARY | 2024-06-15 10:49 | XMS_ITS | Encounter Summary ---
[place] [address] Care Team Providers Care Patient Assistant Name Role Phone Ana Her MD Primary Care Provider [phone] Reason for Visit * Reason Comments Follow-up Encounter Details Date Type Department Care Team (Late st Contact Info) Description 11/15/2020 4:00 PM EDT Office Visit H[place]ology [place] [phone] Laura Joaquin PA Malignant neoplasm of lower-outer [...] ??Excision with image-guided localization ?Lymph Node Sampling: ??[place] lymph node(s) ?Specimen Laterality: ??Left Tumor ?Histologic [...] ??DCIS not present in specimen Lymph Nodes ?[place] Lymph Nodes: [place] lymph node biopsy performed ?Number of [place] Nodes Examined: ??3 ?Number of Lymph Node(s) [...] Spinal stenosis > A Fib. Cardiology at [facility]. S/P successful cardioversion May 2018. DEXA scan [...] [facility] Pager - [phone] documented in this encounter Plan of Treatment Not on file documented as of this encounter Visit Diagnoses Diagnosis Malignant neoplasm of lower-outer quadrant of left breast of female, estrogen receptor positive documented in this encounter Care Teams Patient Assistant Relationship Specialty Start Date End Date Ana Her MD [address] [place] [address] PCP - General 07/29/13 documented as of this encounter
--- OUTSIDE RECORDS SUMMARY | 2024-06-15 10:49 | XMS_ITS | Encounter Summary ---
Author Organization [facility] [place] [address] Care Team Providers Care Gage Maker Name Role Phone Ana Her MD Primary Care Provider [phone] Reason for Visit * Reason Comments Advice Only BBR * Consultation (Routine) - Closed Specialty Diagnoses / Procedures Referred By Christiano hackett Referred To Contact Plastic Surgery Diagnoses Malignant neoplasm of lower-outer quadrant of left breast of female, estrogen receptor positive Macromastia Jeanine Lobato APRN [facility] [place] [address] [facility] [address] [place] [address] Referral ID Status Reason Start Date Expiration Date V isits Requested Visits Authorized [id number] Closed Consult, Test & Treat 06/11/2021 06/11/2022 1 1 Encounter Details Date Type Department Care Team (Late st Contact Info) Description 07/09/2021 8:30 AM EST Office [place] [address] Med Hudson MD [facility] [place] [address] Macromastia Social History Tobacco Use [...] physical with your primary care doctor and Shipyard Helper clearance Two Weeks prior to Surgery [...] Day of Surgery You will need a backhaul driver. If you do not have a backhaul driver, your surgery will be canceled. DO [...] For questions pertaining to your surgical date [phone] For nursing related questions [phone] On weekends, holidays or after office hours: Call [phone] and ask the decker operator to page the Plastic Surgery Resident web content manager. documented in this encounter Progress Notes * [...] and was normal. This was performed at [facility]. She has completed a [...] None of the time Conservative Therapy Treatments: [facility] PLAST[facility] CONSERVATIVE THERAPY TREATMENTS 07/09/2021 Physical therapy [...] at [facility] MAIN OR Family History Problem Relation [...] surgery is best done at a realistic [facility] stable weight. We talked about the outpatient [...] revisions for scarring or asymmetry.) Garcia or [place] Pattern Incision: More scarring on breast, but [...] Timeframe: Elective Procedure: Bilateral breast reduction CPT: 82710 Surgical Technique: Garcia, Pedicle Surgical site: Breasts Side: Bilateral Anesthesia: General Follow up: 1 day for drain removal; 7-10 days for HCK PAT: H+P PCP, Cardiac clearance. Need to discontinue blood thinners pre-op? Xarelto documented in this encounter Plan of Treatment Not on file documented as of this encounter Visit Diagnoses Diagnosis Macromastia Hypertrophy of breast documented in this encounter Care Teams Gage Maker Relationship Specialty Start Date End Date Ana Her MD [address] [place] [address] PCP - General 07/29/13 documented as of this encounter
--- OUTSIDE RECORDS SUMMARY | 2024-06-15 10:49 | XMS_ITS | Encounter Summary ---
[place] [address] Care Team Providers Care Still Pump Operator Name Role Phone Ana Her MD Primary Care Provider Encounter Details Date Type Department Care Team (Late st Contact Info) Description 12/24/2021 Telephone [place] [address] Chelsie Lauren Social History Tobacco Use Types [...] on filedocumented in this encounter Care Teams Still Pump Operator Relationship Specialty Start Date End Date Ana Her MD [address] [place] [address] PCP - General 07/29/13 documented as of this encounter
--- OUTSIDE RECORDS SUMMARY | 2024-06-15 10:49 | XMS_ITS | Encounter Summary ---
[place] [address] Care Team Providers Care Aircraft Manager Name Role Phone Ana Her MD Primary Care Provider [phone] Reason for Visit * Auth/Cert Specialty Diagnoses / Procedures Referred By Christiano hackett Referred To Contact Diagnoses S/P repair of paraesophageal hernia Post-Op monitoring Procedures PRO LAPARSCOPY REPAIR PARAESOPHAGEAL HERNIA INCL FUNDOPLASTY W/O MESH LAPAROSCOPIC PARAESOPHAGEAL HERNIA REPAIR W/FUNDOPLASTY, W/O MESH (WRVU 26.6) MODIFIER TOUPET FUNDOPLASTY Shania Will MD [facility] [place] [address] [facility] Referral ID Status Reason Start Date Expiration Date Visits Re quested Visits Authorized [id number] 1 1 Encounter Details Date Type Department Care Team (Latest Contact Info) Description 03/05/2022 11:55 AM EDT - 03/07/2022 10:00 AM EDT Hospital Encounter [place] [id number] Shania Will MD [facility] [place] [address] Discharge Disposition: Home Social History Tobacco Use [...] of left breast of female, estrogen receptor vmcesupzI20.512, Z17.0 ??? Anemia D64.9 ??? Aortic valve [...] Per chart review, her creatinine levels in 2495-9616 ranged from 0.87-1.50 indicative of possible undiagnosed [...] PM Shania Will MD General Surgery at [facility] Arrive at: Universal Winding Machine Operator Area [phone] Instructions Given to Patient at Discharge: Patient [...] hours please call the Surgery Clinic at [phone] before 5 PM on weekdays. For questions after hours and on weekends please call the hospital machine operator at [phone] and ask for the General Surgery resident ton container shipper. They may not be familiar with your [...] post Sly diet, as instructed by the horse racer in the hospital for a period of [...] renal function. Please call the clinic at [phone] to confirm or reschedule. Future Appointments Date Time Provider Department Center 04/03/2022 12:00 PM Shania Will MD [facility] General Instructions None Future Appointments and Orders Future Appointments and Orders Future Appointments Provider Department Dept Phone 04/03/2022 12:00 PM Shania Will MD General Surgery at [facility] Arrive at: Universal Winding Machine Operator Area Signed: Shena Harden MD 03/07/22 7:18 AM [facility] [address] Primary [place] Physician: MD Geovany David DR [facility] [address] documented in this encounter Discharge Instructions * [...] hours please call the Surgery Clinic at [phone] before 5 PM on weekdays. For questions after hours and on weekends please call the hospital machine operator at [phone] and ask for the General Surgery resident ton container shipper. They may not be familiar with your [...] post Sly diet, as instructed by the horse racer in the hospital for a period of [...] renal function. Please call the clinic at [phone] to confirm or reschedule. Future Appointments Date Time Provider Department Center 04/03/2022 12:00 PM Shania Will MD [facility] documented in this encounter Medications at Time [...] Ocampo RN - 03/07/2022 10:25 AM EDT [facility] Short Stay Unit Discharge Note [...] Sly Diet Education to pt Digna Olson. Jet Dyeing Machine Tender metwith pt at bedside to deliver full [...] she is noticing some overall improvement post op.Jet Dyeing Machine Tender took note of this and encouraged the [...] Department contact information provided. Pt appreciate of inspector automatic typewriter's time. Nutrition to follow as needed. Active [...] Perez MD 03/05/2022 Minimally Invasive Surgery Pager #[phone] * Lorrie Slater RN - 03/05/2022 6:46 [...] of left breast of female, estrogen receptor bnzaggzkT53.512, Z17.0 ??? Anemia D64.9 ??? Aortic valve [...] 6.43) performed by Malika Chen MD at [facility] MAIN OR ??? PRO INTRAOP SENTINEL LYMPH ID W/DYE INJECTION Left 03/30/2017 ?? INTRAOPERATIVE ID (MAPPING) SENTINEL LYMPH NODE,INCLUDES INJECTION (WRVU 2.5) performed by Malika Chen MD at [facility] MAIN OR ??? PRO MASTECTOMY PARTIAL Left 03/30/2017 ?? MASTECTOMY PARTIAL (WRVU 10.13) performed by Malika Chen MD at [facility] MAIN OR ?? Cholecystectomy ?? [...] Operative Note Patient Name: Digna Olson : [id number] MR#: [id number] Case Date: 03/05/2022 Surgeon: Surgeon(s) and Role: [...] Flores MD - 03/05/2022 2:32 PM EDT [facility] Operative Note Patient Name: Digna Olson : [id number] MR#: [id number] Case Date: 03/05/2022 Surgeon: Surgeon(s) and Role: [...] Repair Paraesophageal Hernia Incl Fundoplasty W/O Mesh (04202) 03/05/2022 1:58 PM EDT Paraesophageal Hernia POCT GLUCOSE Routine 03/05/2022 12:18 PM EDT LAPAROSCOPIC PARAESOPHAGEAL HERNIA REPAIR W FUNDOPLASTY, W/O MESH Routine 03/05/2022 12:02 PM EDT documented in this encounter Results * (ABNORMAL) Differential, Automated (03/07/2022 5:08 AM EDT) Neutrophil % 80.0 % [facility] Neutrophil Absolute 5.30 1.70 - 6.10 x10(3)/mc L [facility] Lymph % 12.1 % [facility] Lymphocytes Abs 0.8(L) 0.9 - 3.2 x10(3)/mc L [facility] Monocyte % 7.6 % [facility] Monocyte Abs 0.5 0.3 - 0.9 x10(3)/mc L [facility] Eos % 0.0 % [facility] Eosinophils Abs 0.0 0.0 - 0.4 x10(3)/mc L [facility] Basophil % 0.0 % [facility] Baso Absolute 0.0 0.0 - 0.1 x10(3)/[facility] Immature Gran % 0.30 % [facility] Comment: Immature granulocytes(IG's)percentage and absolute count will include metamyelocytes, myelocytes, and promyelocytes. Blood smears from CBCs yielding IG's will be scanned manually for concordance. If this scan disagrees with the automated IG or if promyelocytes are noted, a manual differential will be performed. Immature Gran Absolute 0.02 0.00 - 0.04 x10(3)/[facility] Blood 03/07/2022 5:08 AM EDT 03/07/2022 5:19 AM EDT Narrative Resulting Agency Comment Spec In Lab Nino Levy MD HEMATOLOGY ORDERABLE S Performing Organization Address City/State/[facility] Co de Phone Number [facility] [place] [address] * (ABNORMAL) Hemogram (03/07/2022 5:08 AM EDT) White Blood Cell 6.6 4.0 - 9.5 x10(3)/[facility] Red Blood Cell 3.16(L) 4.00 - 5.21 x10(6)/[facility] Hemoglobin 10.7(L) 11.7 - 15.5 [...] LABORATORY Platelet 110(L) 145 - 357 x10(3)/[facility] RDW Standard Deviation 47.5(H) 37.0 [...] HEMATOLOGY ORDERABLE S [facility] [place] [address] * Phosphorus (03/07/2022 5:08 AM EDT) Phosphorus 2.7 2.5 - 4.5 mg/dL [facility] Blood 03/07/2022 5:08 AM EDT 03/07/2022 5:19 AM EDT Narrative Resulting Agency Comment Spec In Lab Shania Will MD CHEMISTRY ORDERABLE S Performing Organization Address City/[facility]/ZIP Co de Phone Number [facility] [place] [address] * Magnesium (03/07/2022 5:08 AM EDT) Magnesium 0.89 0.69 - 1.07 mmol/L [facility] Blood 03/07/2022 5:08 AM EDT 03/07/2022 5:19 AM EDT Narrative Resulting Agency Comment Spec In Lab Shania Will MD CHEMISTRY ORDERABLE S [facility] [place] [address] * (ABNORMAL) Basic Metabolic Panel (non-fasting) (03/07/2022 [...] Lab Shania Will MD [place] [address] * (ABNORMAL) Differential, Automated (03/06/2022 10:15 AM EDT) Pathologist [facility] Neutrophil % 90.7 % [facility] Neutrophil Absolute 5.79 1.70 - 6.10 x10(3)/ L [facility] Lymph % 5.0 % [facility] Lymphocytes Abs 0.3(L) 0.9 - 3.2 x10(3)/ L [facility] Monocyte % 3.8 % [facility] Monocyte Abs 0.2(L) 0.3 - 0.9 x10(3)/[facility] Eos % 0.0 % [facility] Eosinophils Abs 0.0 0.0 - 0.4 x10(3)/[facility] Basophil % 0.0 % [facility] Baso [...] In Lab Maryam MUELLER [place] [address] * (ABNORMAL) Hemogram (03/06/2022 10:15 AM EDT) [...] HEMATOLOGY ORDERABL ES [facility] [place] [address] * Phosphorus (03/06/2022 10:15 AM EDT) Phosphorus 3.3 2.5 - 4.5 mg/dL [facility] Blood 03/06/2022 10:1 5 AM EDT 03/06/2022 10:21 AM EDT Narrative Resulting Agency Comment Spec In Lab Shania Will MD CHEMISTRY ORDERABLE S Performing Organization Address City/[facility]/ZIP Co de Phone Number [facility] [place] [address] * Magnesium (03/06/2022 10:15 AM EDT) Magnesium 0.69 0.69 - 1.07 mmol/L [facility] Blood 03/06/2022 10:1 5 AM EDT 03/06/2022 10:21 AM EDT Narrative Resulting Agency Comment Spec In Lab Shania Will MD CHEMISTRY ORDERABLE S Performing Organization Address [facility] Co de Phone Number [facility] [place] [address] * (ABNORMAL) Basic Metabolic Panel (non-fasting) (03/06/2022 10:15 AM EDT) Pathologist [facility] Glucose 155 65 - 199 mg/dL HOLDEN [...] MD CHEMISTRY ORDERABLE S Performing Organization Address City/State/[facility] Co de Phone Number [facility] [place] [address] * (ABNORMAL) Differential, Automated (03/06/2022 4:29 AM EDT) Neutrophil % 90.5 % [facility] Neutrophil Absolute 4.47 1.70 - 6.10 x10(3)/mc L [facility] Lymph % 6.9 % [facility] Lymphocytes Abs 0.3(L) 0.9 - 3.2 x10(3)/mc L [facility] Monocyte % 2.2 % [facility] Monocyte Abs 0.1(L) 0.3 - 0.9 x10(3)/mc L [facility] Eos % 0.0 % [facility] Eosinophils Abs 0.0 0.0 - 0.4 x10(3)/mc L [facility] Basophil % 0.2 % [facility] Baso [...] HEMATOLOGY ORDERABLE S [facility] [place] [address] * (ABNORMAL) Hemogram (03/06/2022 4:29 AM EDT) [...] HEMATOLOGY ORDERABLE S [facility] [place] [address] * (ABNORMAL) Basic Metabolic Panel (non-fasting) (03/06/2022 [...] CHEMISTRY ORDERABLE S [facility] [place] [address] * POCT Glucose (03/05/2022 12:18 PM EDT) Glucose, POC 94 65 - 199 mg/dL [facility] Comment: Supplemental ranges: <140 mg/dL before meals <180 mg/dL all other times of the day Blood 03/05/2022 12:1 8 PM EDT 03/05/2022 12:18 PM EDT Shania Will MD POINT OF CARE TEST ORDERABLES Performing Organization Address City/[facility]/ZIP Co de Phone Number [facility] [place] [address] documented in this encounter Visit Diagnoses Diagnosis [...] Provider: Olga Ocampo, CONNIE)2239 (Given - Provider: Tmaanna Villalobos LPN) 0503 (Given - Provider: Tamanna [...] Unit) documented in this encounter Care Teams Aircraft Manager Relationship Specialty Start Date End Date Ana Her MD [address] [place] [address] PCP - General 07/29/13 documented as of this encounter
--- OUTSIDE RECORDS SUMMARY | 2024-06-15 10:49 | XMS_ITS | Encounter Summary ---
[place] [address] Care Team Providers Care Picu Nurse Name Role Phone Ana Her MD Primary Care Provider [phone] Reason for Visit * Reason Comments Follow-up Encounter Details Date Type Department Care Team (Late st Contact Info) Description 06/11/2021 11:00 AM EST Office Visit Hematology [place] [id number] Laura Joaquin PA Malignant neoplasm of lower-outer quadrant of left breast of female, estrogen receptor positive; residential current use of aromatase inhibitor Social [...] ??Excision with image-guided localization ?Lymph Node Sampling: ??[place] lymph node(s) ?Specimen Laterality: ??Left Tumor ?Histologic [...] ??DCIS not present in specimen Lymph Nodes ?[place] Lymph Nodes: [place] lymph node biopsy performed ?Number of [place] Nodes Examined: ??3 ?Number of Lymph Node(s) [...] on RA Breasts: deferred (examined by surgery STORAGE SPECIALIST today) Neuro: grossly nonfocal. Results: Last [...] Cancers [facility] Pager - [phone] No future appointments. documented in this encounter Plan of Treatment Not on file documented as of this encounter Visit Diagnoses Diagnosis Malignant neoplasm of lower-outer quadrant of left breast of female, estrogen receptor positive residential current use of aromatase inhibitor Use of aromatase inhibitors documented in this encounter Care Teams Picu Nurse Relationship Specialty Start Date End Date Ana Her MD [address] [place] [address] PCP - General 07/29/13 documented as of this encounter
--- OUTSIDE RECORDS SUMMARY | 2024-06-15 10:49 | XMS_ITS | Encounter Summary ---
Author Organization [facility] [place] [address] Care Team Providers Care Kettleman Name Role Phone Ana Her MD Primary Care Provider [phone] 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 * Diagnostic Test (Routine) - Closed Specialty Diagnoses / Procedures Referred By Contac t Referred To Contact Radiology Diagnoses Malignant neoplasm of lower-outer quadrant of left breast of female, estrogen receptor positive Osteopenia of neck of femur, unspecified laterality [facility] current use of aromatase inhibitor Procedures DXA Central Spine, Hip, and/or Whole Body (Generic) Ricky Lowry MD [facility] HEMATOLOGY/[place] [address] [facility] Rad Xray [address] [place] [address] [place] [address] Referral ID Status Reason Start Date Expiration Date V isits Requested Visits Authorized [id number] Closed Specialty Service Requested 05/22/2020 11/19/2021 1 1 Reason for Visit * Diagnostic Test (Routine) - Closed Specialty Diagnoses / Procedures Referred By Contac t Referred To Contact Radiology Diagnoses Malignant neoplasm of lower-outer quadrant of left breast of female, estrogen receptor positive Osteopenia of neck of femur, unspecified laterality oil heaterman current use of aromatase inhibitor Procedures DXA Central Spine, Hip, and/or Whole Body (Generic) Ricky Lowry MD [facility] [place]AT[place] [address] [facility] Rad Xray [address] [place] [address] Dr [place] briscoe [phone] Referral ID Status Reason Start Date Expiration Date V isits Requested Visits Authorized [id number] Closed Specialty Service Requested 05/22/2020 11/19/2021 1 1 Encounter Details Date Type Department Care Team (Latest Contact Info) Description 11/15/2020 2:25 PM EDT - 11/15/2020 11:59 PM EDT Hospital Encounter XRay at [address] [place] [address] Ricky Lowry MD Malignant neoplasm of lower-outer quadrant of left breast of female, estrogen receptor positive; Osteopenia of neck of femur, unspecified laterality; [facility] current use of aromatase 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 Paper copies will be sent to providers without E- access. If you have received this report without the data sheet and do not have access to [employer], please contact Radiology Coal Miner at [phone] Thursday thru Thursday 8am-4pm. Thank you for letting us participate in the care of this patient. ??If you are a health care provider and have any questions regarding this report, please contact the number below. ??For patients who have questions please contact the health vocational childcare teacher that requested your imaging first. ? [...] BMD measurements and plots are available in [employer] the imaging tab. Paper copies will be sent to providers without - access.If you have received this report without the data sheet and do not haveaccess to [facility], please contact Radiology Coal Miner at [phone] Thursday thrrid 8am-4pm. Thank you for letting us participate in the care of this patient. If youare a health care provider and have any questions regarding this report,please contact the number below. For patients who have questions please contactthe health vocational childcare teacher that requested your imaging first. Ricky Lowry MD IMG DEXA ORDERABLES documented in this encounter Visit Diagnoses Diagnosis Malignant neoplasm of lower-outer quadrant of left breast of female, estrogen receptor positive Osteopenia of neck of femur, unspecified laterality [facility] current use of aromatase inhibitor Use of aromatase inhibitors documented in this encounter Care Teams Kettleman Relationship Specialty Start Date End Date Ana Her MD [address] [place] [address] PCP - General 07/29/13 documented as of this encounter
--- OUTSIDE RECORDS SUMMARY | 2024-06-15 10:49 | XMS_ITS | Encounter Summary ---
Author Organization [facility] [place] [address] Care Team Providers Care Auto Painter Helper Name Role Phone Ana Her MD Primary Care Provider [phone] Reason for Visit * Consultation (Routine) - Closed Specialty Diagnoses / Procedures Referred By Christiano hackett Referred To Contact General Surgery Diagnoses Hiatal hernia Ana Her MD [address] [place] [address] [facility] Gen Surgery [address] [place] [address] Referral ID Status Reason Start Date Expiration Date V isits Requested Visits Authorized [id number] Closed Consult, Test & Treat 09/23/2021 09/23/2022 6 6 Encounter Details Date Type Department Care Team (Latest Contact Info) Description 12/05/2021 3:00 PM EDT Office [place] [address] Laura Will MD [facility] [place] [address] Paraesophageal hernia Social History Tobacco [...] of left breast of female, estrogen receptor [id number], Z17.0 ??? Anemia D64.9 ??? Aortic valve [...] documented in this encounter Care Teams Auto Painter Helper Relationship Specialty Start Date End Date Ana Her MD [address] [place] [address] PCP - General 07/29/13 documented as of this encounter
--- OUTSIDE RECORDS SUMMARY | 2024-06-15 10:49 | XMS_ITS | Encounter Summary ---
[place] [address] Care Team Providers Care Ship'S Engineer Name Role Phone Ana Her MD Primary Care Provider [phone] Encounter Details Date Type Department Care Team (Late st Contact Info) Description 02/04/2022 12:00 PM EDT [place] [address] Social History Tobacco Use Types Packs/Day Years [...] on filedocumented in this encounter Care Teams Ship'S Engineer Relationship Specialty Start Date End Date Ana Her MD [address] [place] [address] PCP - General 07/29/13 documented as of this encounter
--- OUTSIDE RECORDS SUMMARY | 2024-06-15 10:49 | XMS_ITS | Encounter Summary ---
[place] [address] Care Team Providers Care Public Safety Teacher Name Role Phone Ana Her MD Primary Care Provider [phone] 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 * Consultation (Routine) - Closed Specialty Diagnoses / Procedures Referred By Christiano hackett Referred To Contact General Surgery Diagnoses Hiatal hernia Ana Her MD [address] [place] [address] [facility] [place] [address] [place] [phone] Referral ID Status Reason Start Date Expiration Date V isits Requested Visits Authorized [id number] Closed Consult, Test & Treat 09/23/2021 09/23/2022 6 6 Encounter Details Date Type Department Care Team (Late st Contact Info) Description 09/23/2021 Transcribe Orders eDH Incoming Referrals [phone] Ana Her MD [address] [place] [address] Hiatal hernia Social History Tobacco [...] gangrene documented in this encounter Care Teams Public Safety Teacher Relationship Specialty Start Date End Date Ana Her MD [address] [place] [address] PCP - General 07/29/13 documented as of this encounter
--- OUTSIDE RECORDS SUMMARY | 2024-06-15 10:49 | XMS_ITS | Encounter Summary ---
[place] [address] Care Team Providers Care Personal Fitness Trainer Name Role Phone Ana Her MD Primary Care Provider [phone] Reason for Visit * Auth/Cert Specialty Diagnoses / Procedures Referred By Christiano hackett Referred To Contact Diagnoses S/P repair of paraesophageal hernia Post-Op monitoring Procedures PRO LAPARSCOPY REPAIR PARAESOPHAGEAL HERNIA INCL FUNDOPLASTY W/O MESH LAPAROSCOPIC PARAESOPHAGEAL HERNIA REPAIR W/FUNDOPLASTY, W/O MESH (WRVU 26.6) MODIFIER TOUPET FUNDOPLASTY Shania Will MD [facility] [place] [address] [facility] Referral ID Status Reason Start Date Expiration Date Visits Re quested Visits Authorized [id number] 1 1 Encounter Details Date Type Department Care Team (Late st Contact Info) Description 03/05/2022 12:54 PM EDT - 03/05/2022 4:55 PM EDT [place] [id number] Shania Will MD [facility] [place] [address] LAPAROSCOPIC PARAESOPHAGEAL HERNIA REPAIR W/FUNDOPLASTY, W/O MESH [...] of left breast of female, estrogen receptor fifiuyycH83.512, Z17.0 ??? Anemia D64.9 ??? Aortic valve [...] Per chart review, her creatinine levels in [id number] ranged from 0.87-1.50 indicative of possible undiagnosed [...] [facility] [place]rive at: Casework Manager Area [phone] Instructions Given to Patient at Discharge: Patient [...] hours please call the Surgery Clinic at [phone] before 5 PM on weekdays. For questions after hours and on weekends please call the hospital decay control operator at [phone] and ask for the General Surgery resident relief salesperson. They may not be familiar with your [...] post Sly diet, as instructed by the shipping order clerk in the hospital for a period [...] renal function. Please call the clinic at [phone] to confirm or reschedule. Future Appointments Date Time Provider Department Center 04/03/2022 12:00 PM Shania Will MD [facility] General Instructions None Future Appointments and Orders Future Appointments and Orders Future Appointments Provider Department Dept Phone 04/03/2022 12:00 PM Shania Will MD General Surgery at [facility] Arrive at: Casework Manager Area 4L [phone] Signed: Shena Harden MD 03/07/22 7:18 AM [facility] Primary Saima Physician: MD Geovany David DR [facility] [id number] documented in this encounter Discharge Instructions * [...] hours please call the Surgery Clinic at [phone] before 5 PM on weekdays. For questions after hours and on weekends please call the hospital decay control operator at [phone] and ask for the General Surgery resident relief salesperson. They may not be familiar with your [...] post Sly diet, as instructed by the shipping order clerk in the hospital for a period [...] renal function. Please call the clinic at [phone] to confirm or reschedule. Future Appointments Date [...] Ocampo RN - 03/07/2022 10:25 AM EDT [facility] Short Stay Unit Discharge Note [...] Sly Diet Education to pt Digna Olson. Car Retarder Operator metwith pt at bedside to deliver [...] she is noticing some overall improvement post op.Car Retarder Operator took note of this and encouraged [...] Department contact information provided. Pt appreciate of designer/writer's time. Nutrition to follow as needed. Active [...] last 72 hours. IMAGING None new A/P: Digan Olson is a 76 y.o. female s/p above procedures, currently in stable condition and recovering well following surgery. Appropriate for the floor. Pain well-controlled. Hemodynamically stable, awaiting urine output. - Tylenol, Toradol, Gabapentin, Oxycodone for pain control - LR @ 100cc/hr - Post-Sly Clear Liquid Diet - F/u UOP - Continue post-op plan Mehdi Perez MD 03/05/2022 Minimally Invasive Surgery Pager #[phone] * Lorrie Slater RN - 03/05/2022 6:46 [...] ?? She is followed by cardiology at [facility], and is on xarelto. ?? Impression: ??Symptomatic [...] of left breast of female, estrogen receptor dlknsnujN75.512, Z17.0 ??? Anemia D64.9 ??? Aortic valve [...] 6.43) performed by Malika Chen MD at [facility] MAIN OR ??? PRO INTRAOP SENTINEL LYMPH ID W/DYE INJECTION Left 03/30/2017 ?? INTRAOPERATIVE ID (MAPPING) SENTINEL LYMPH NODE,INCLUDES INJECTION (WRVU 2.5) performed by Malika Chen MD at [facility] MAIN OR ??? PRO MASTECTOMY PARTIAL Left 03/30/2017 ?? MASTECTOMY PARTIAL (WRVU 10.13) performed by Malika Chen MD at [facility] MAIN OR ?? Cholecystectomy ?? [...] Operative Note Patient Name: Digna Olson : [id number] MR#: [id number] Case Date: 03/05/2022 Surgeon: Surgeon(s) and Role: [...] Operative Note Patient Name: Digna Olson : [id number] MR#: [id number] Case Date: 03/05/2022 Surgeon: Surgeon(s) and Role: [...] mediastinal dissection to mobilize the esophagus. A [place] which was placed around the esophagus was [...] Repair Paraesophageal Hernia Incl Fundoplasty W/O Mesh (58545) 03/05/2022 1:58 PM EDT Paraesophageal Hernia POCT GLUCOSE Routine 03/05/2022 12:18 PM EDT LAPAROSCOPIC PARAESOPHAGEAL HERNIA REPAIR W FUNDOPLASTY, W/O MESH Routine 03/05/2022 12:02 PM EDT documented in this encounter Results * (ABNORMAL) Differential, Automated (03/07/2022 5:08 AM EDT) Neutrophil % 80.0 % [facility] Neutrophil Absolute 5.30 1.70 - 6.10 x10(3)/mc L [facility] Lymph % 12.1 % [facility] Lymphocytes Abs 0.8(L) 0.9 - 3.2 x10(3)/mc L [facility] Monocyte % 7.6 % [facility] Monocyte Abs 0.5 0.3 - 0.9 x10(3)/mc L [facility] Eos % 0.0 % [facility] Eosinophils Abs 0.0 0.0 - 0.4 x10(3)/[facility] Basophil % 0.0 % [facility] Baso Absolute 0.0 0.0 - 0.1 x10(3)/[facility] Immature Gran % 0.30 % [facility] Comment: Immature granulocytes(IG's)percentage and absolute count will include metamyelocytes, myelocytes, and promyelocytes. Blood smears from CBCs yielding IG's will be scanned manually for concordance. If this scan disagrees with the automated IG or if promyelocytes are noted, a manual differential will be performed. Immature Gran Absolute 0.02 0.00 - 0.04 x10(3)/[facility] Blood 03/07/2022 5:08 AM EDT 03/07/2022 5:19 AM EDT Narrative Resulting Agency Comment Spec In Lab Nino Levy MD HEMATOLOGY ORDERABLE S [facility] [place] [address] * (ABNORMAL) Hemogram (03/07/2022 5:08 AM EDT) White Blood Cell 6.6 4.0 - 9.5 x10(3)/[facility] Red Blood Cell 3.16(L) 4.00 - 5.21 x10(6)/[facility] Hemoglobin 10.7(L) 11.7 - 15.5 [...] RDW Standard Deviation 47.5(H) 37.0 - 46.0 [facility] RDW coefficient of variation 12.9 11.5 - 14.1 % [facility] Mean Platelet Volume 11.7 7.6 - 12.9 [facility] NRBC% auto 0.0 % [facility] NRBC Absolute 0.000 0.000 - 0.000 x10(3)/mc L [facility] Blood 03/07/2022 5:08 AM EDT 03/07/2022 5:19 AM EDT Narrative Resulting Agency Comment Spec In Lab Nino Levy MD HEMATOLOGY ORDERABLE S Performing Organization Address City/[facility]/[place] [address] * Phosphorus (03/07/2022 5:08 AM EDT) Phosphorus 2.7 2.5 - 4.5 mg/dL [facility] Blood 03/07/2022 5:08 AM EDT 03/07/2022 5:19 AM EDT Narrative Resulting Agency Comment Spec In Lab Shania Will MD CHEMISTRY ORDERABLE S Performing Organization Address City/[facility]/ZIP Co de Phone Number [facility] [place] [address] * Magnesium (03/07/2022 5:08 AM EDT) Magnesium 0.89 0.69 - 1.07 mmol/L [facility] Blood 03/07/2022 5:08 AM EDT 03/07/2022 5:19 AM EDT Narrative Resulting Agency Comment Spec In Lab Shania Will MD CHEMISTRY ORDERABLE S [facility] [place] [address] * (ABNORMAL) Basic Metabolic Panel (non-fasting) (03/07/2022 [...] MD CHEMISTRY ORDERABLE S Performing Organization Address City/[facility]/ZIP Co de Phone Number [facility] [place] [address] * (ABNORMAL) Differential, Automated (03/06/2022 10:15 AM EDT) Neutrophil % 90.7 % [facility] Neutrophil Absolute 5.79 1.70 - 6.10 x10(3)/mc L [facility] Lymph % 5.0 % [facility] Lymphocytes Abs 0.3(L) 0.9 - 3.2 x10(3)/mc L [facility] Monocyte % 3.8 % [facility] Monocyte Abs 0.2(L) 0.3 - 0.9 x10(3)/mc L [facility] Eos % 0.0 % [facility] Eosinophils Abs 0.0 0.0 - 0.4 x10(3)/[facility] Basophil % 0.0 % [facility] [...] MUELLER HEMATOLOGY ORDERABL ES Performing Organization Address City/[facility]/ZIP Co de Phone Number [facility] [place] [address] * (ABNORMAL) Hemogram (03/06/2022 10:15 AM EDT) [...] HOSPITAL LABORATORY Platelet 111(L) 145 - 357 x10(3)/[facility] RDW Standard Deviation 47.2(H) 37.0 - 46.0 [facility] RDW coefficient of variation 12.9 11.5 - 14.1 % [facility] Mean Platelet Volume 11.5 7.6 - 12.9 [facility] NRBC% auto 0.0 % [facility] NRBC Absolute 0.000 0.000 - 0.000 x10(3)/ L [facility] Blood 03/06/2022 10:1 5 AM EDT 03/06/2022 10:21 AM EDT Narrative Resulting Agency Comment Spec In Lab Maryam MUELLER HEMATOLOGY ORDERABL ES [facility] [place] [address] * Phosphorus (03/06/2022 10:15 AM EDT) Phosphorus 3.3 2.5 - 4.5 mg/dL [facility] Blood 03/06/2022 10:1 5 AM EDT 03/06/2022 10:21 AM EDT Narrative Resulting Agency Comment Spec In Lab Shania Will MD CHEMISTRY ORDERABLE S [facility] [place] [address] * Magnesium (03/06/2022 10:15 AM EDT) Magnesium 0.69 0.69 - 1.07 mmol/L [facility] Blood 03/06/2022 10:1 5 AM EDT 03/06/2022 10:21 AM EDT Narrative Resulting Agency Comment Spec In Lab Shania Will MD CHEMISTRY ORDERABLE S Performing Organization Address City/[facility]/ZIP Co de Phone Number [facility] [place] [address] * (ABNORMAL) Basic Metabolic Panel (non-fasting) (03/06/2022 [...] City/State/[facility] Co de Phone Number [facility] [place] [address] * (ABNORMAL) Differential, Automated (03/06/2022 4:29 AM EDT) Neutrophil % 90.5 % [facility] Neutrophil Absolute 4.47 1.70 - 6.10 x10(3)/mc L [facility] Lymph % 6.9 % [facility] Lymphocytes Abs 0.3(L) 0.9 - 3.2 x10(3)/mc L [facility] Monocyte % 2.2 % [facility] Monocyte Abs 0.1(L) 0.3 - 0.9 x10(3)/mc L [facility] Eos % 0.0 % [facility] Eosinophils Abs 0.0 [...] Immature Gran Absolute 0.01 0.00 - 0.04 x10(3)/[facility] Blood 03/06/2022 4:29 AM EDT 03/06/2022 4:49 AM EDT Narrative Resulting Agency Comment Spec In Lab Prakash Mendez MD HEMATOLOGY ORDERABLE S [facility] [place] [address] * (ABNORMAL) Hemogram (03/06/2022 4:29 AM EDT) White Blood Cell 4.9 4.0 - 9.5 x10(3)/[facility] Red Blood Cell 3.08(L) 4.00 - 5.21 x10(6)/[facility] Hemoglobin 10.5(L) 11.7 - 15.5 [...] HOSPITAL LABORATORY Platelet 104(L) 145 - 357 x10(3)/[facility] RDW Standard Deviation 47.5(H) 37.0 [...] HEMATOLOGY ORDERABLE S [facility] [place] [address] * (ABNORMAL) Basic Metabolic Panel (non-fasting) (03/06/2022 [...] MD CHEMISTRY ORDERABLE S Performing Organization Address City/[facility]/ZIP Co de Phone Number [facility] [place] [address] * POCT Glucose (03/05/2022 12:18 PM EDT) Glucose, POC 94 65 - 199 mg/dL [facility] Comment: Supplemental ranges: <140 mg/dL before meals <180 mg/dL all other times of the day Blood 03/05/2022 12:1 8 PM EDT 03/05/2022 12:18 PM EDT Shania Will MD POINT OF CARE TEST ORDERABLES Performing Organization Address City/[facility]/ZIP Co de Phone Number [facility] [place] [address] documented in this encounter Visit Diagnoses Not [...] Unit) documented in this encounter Care Teams Personal Fitness Trainer Relationship Specialty Start Date End Date Ana Her MD [address] [facility] [address] [place] [address] PCP - General 07/29/13 documented as of this encounter
--- OUTSIDE RECORDS SUMMARY | 2024-06-15 10:49 | XMS_ITS | Encounter Summary ---
[place] [address] Care Team Providers Care Project Economist Name Role Phone Ana Her MD Primary Care Provider [phone] Reason for Visit * Reason Comments Follow-up Encounter Details Date Type Department Care Team (Late st Contact Info) Description 05/22/2020 11:40 AM EST Office Visit [place] [address] Jeanine Lobato APRN [facility] [place] [address] Encounter for follow-up surveillance of breast cancer; [...] was obtained which revealed IDC which is ER/SD positive, Her2 negative. Alma Delia opted against [...] with image-guided localization ?Lymph Node Sampling: ??[place] lymph node(s) ?Specimen Laterality: ??Left Tumor ?Histologic [...] not present in specimen Lymph Nodes ?[place] Lymph Nodes: [place] lymph node biopsy performed ?Number of [place] Nodes Examined: ??3 ?Number of Lymph Node(s) [...] situation. Results: Imaging performed (bilateral mammogram) at [facility] today shows no evidence of [...] available at [employer]) and [employer]. All questions were answered to the patient's satisfaction and they state understanding and agreement with today's treatment plan. They are encouraged to follow up sooner if they develop any new or concerning symptoms. Jeanine Lobato APRN Surgical Oncology P [phone] F [phone] [facility] documented in this encounter Plan of [...] questions please contact the health intensive care anaesthetist that requested your imaging first. ? Electronically signed by: Digna Noel MD, [facility] ([phone]), at 06/11/2021 9:20 AM Jeanine Lobato APRN [...] mammogram documented in this encounter Care Teams Project Economist Relationship Specialty Start Date End Date Ana Her MD [facility] [address] [place] [address] PCP - General 07/29/13 documented as of this encounter
--- OUTSIDE RECORDS SUMMARY | 2024-06-15 10:49 | XMS_ITS | Encounter Summary ---
[place] [address] Care Team Providers Care Feeder Catcher Name Role Phone Ana Her MD Primary Care Provider [phone] Encounter Details Date Type Department Care Team (Late st Contact Info) Description 02/26/2022 Orders Only [place] [address] Alicia Manning RN Social History Tobacco Use [...] filedocumented in this encounter Care Teams Feeder Catcher Relationship Specialty Start Date End Date Ana Her MD [address] [place] [address] PCP - General 07/29/13 documented as of this encounter
--- OUTSIDE RECORDS SUMMARY | 2024-06-15 10:49 | XMS_ITS | Encounter Summary ---
[place] [address] Care Team Providers Care Regional Marketing Manager Name Role Phone Ana Her MD Primary Care Provider [phone] Encounter Details Date Type Department Care Team (Late st Contact Info) Description 06/12/2021 Telephone [place] [phone] Chelsie Lauren Social History Tobacco Use Types [...] filedocumented in this encounter Care Teams Regional Marketing Manager Relationship Specialty Start Date End Date Ana Her MD [address] [place] [address] PCP - General 07/29/13 documented as of this encounter
--- OUTSIDE RECORDS SUMMARY | 2024-06-15 10:49 | XMS_ITS | Encounter Summary ---
Author Organization [facility] [place] [address] Care Team Providers Care Pot Pusher Name Role Phone Ana Her MD Primary Care Provider [phone] Encounter Details Date Type Department Care Team (Latest Contact Info) Description 01/08/2022 6:11 AM EDT - 01/08/2022 9:40 AM EDT Hospital Encounter [place] [id number] Laura Park MD [facility] [place] [address] Discharge Disposition: Home Social History Tobacco Use [...] a nurse in the Thoracic Clinic at [phone]. After hours or on weekends or holidays please call: [phone] and ask to speak to the Thoracic Physician neonatal surgeon. Diet: You should follow a clear liquid [...] - 5pm): General Surgery and Bariatric Surgery [phone] Bariatric Surgeons: Drs. Park and John [phone] Global Regulatory Affairs Manager: [phone] Dietitians: [phone] Outside of regular business hours, including weekends and holidays: Ask for General Surgery resident neonatal surgeon [phone] Please note, this call will be answered [...] of left breast of female, estrogen receptor zodbbjzwP82.512, Z17.0 ??? Anemia D64.9 ??? Aortic valve [...] Park MD - 01/08/2022 7:48 AM EDT [facility] Operative Note Patient Name: Digna Olson : [id number] MR#: [id number] Case Date: 01/08/2022 Surgeon: Surgeon(s) and Role: [...] Info Order Time SPECIMEN TO PATHOLOGY Gastric [place] for H Pylori Hiatal hernia Gastric [place] for H Pylori excision 01/08/2022 8:15 AM [...] 8:14 AM EDT Upper GI Endoscopy, Diagnostic ([id number]) Yes 01/08/2022 7:40 AM EDT Hiatal hernia [...] MD PATHOLOGY/CYTOLOGY ORDERABLES [facility] [place] [address] * Surgical Pathology Report (01/08/2022 8:14 AM EDT) Final Diagnosis [id number] ? Location: [facility]; A The signing pathologist has (i) examined the relevant preparation(s) for the specimen(s) and (ii) rendered or confirmed the diagnosis(es). . ?Surgical Pathology DIAGNOSIS A - Gastric ??Antrum for H Pylori, excision: - ??Antrum-type mucosa with reactive gastropathy. Electronically signed by: ?Umang Raymundo MD Verified: ??01/09/2022 16:36 ??Pathologist Performed at: ??-[facility] Dept. of Pathology, [place], [place] SPECIMEN(S) SUBMITTED A - Gastric ??Antrum [...] MD PATHOLOGY/CYTOLOGY ORDERABLES [facility] [place] [address] * POCT Glucose (01/08/2022 6:33 AM EDT) Glucose, POC 120 65 - 199 mg/dL [facility] Comment: Supplemental ranges: <140 mg/dL before meals <180 mg/dL all other times of the day Blood 01/08/2022 6:33 AM EDT 01/08/2022 6:33 AM EDT Laura Park MD POINT [place] [address] documented in this encounter Visit Diagnoses Not on filedocumented in this encounter Active and Recently Administered Medications Care Teams Pot Pusher Relationship Specialty Start Date End Date Ana Her MD [address] [place] [address] PCP - General 07/29/13 documented as of this encounter
--- OUTSIDE RECORDS SUMMARY | 2024-06-15 10:49 | XMS_ITS | Encounter Summary ---
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, estrogen receptor positive Macromastia Jeanine Lobato APRN [facility] [place] [address] [facility] [place] [address] [address] Referral ID Status Reason Start Date Expiration Date V isits Requested Visits Authorized [id number] Closed Consult, Test & Treat 06/11/2021 06/11/2022 1 1 Encounter Details Date Type Department Care Team (Late st Contact Info) Description 06/11/2021 10:00 AM EST Office [place] [address] Jeanine Lobato APRN [facility] [place] [address] Encounter for follow-up surveillance of [...] this encounter Progress Notes * Jeanine Lobato, SET UP OPERATOR TOOL - 06/11/2021 10:00 AM EST Images from [...] Family history of ovarian cancer No Ashkenazi Jainism heritage No Known genetic mutation Not tested [...] situation. Results: Imaging performed (bilateral mammogram) at [facility] today shows no evidence of malignancy, BIRADS [...] free apps for your cell phone from [employer] ([employer]) and [employer] ([employer] ([employer] All questions were answered to the patient's satisfaction and they state understanding and agreement with today's treatment plan. They are encouraged to follow up sooner if they develop any new or concerning symptoms. Jeanine Lobato APRN Surgical Oncology P [phone] F [phone] [facility] documented in this encounter Plan of [...] breast documented in this encounter Care Teams Billing Spec Relationship Specialty Start Date End Date Ana Her MD [address] [place] [address] PCP - General 07/29/13 documented as of this encounter
--- OUTSIDE RECORDS SUMMARY | 2024-06-15 10:49 | XMS_ITS | Encounter Summary ---
[place] [address] Care Team Providers Care Costuming Supervisor Name Role Phone Ana Her MD Primary Care Provider [phone] Encounter Details Date Type Department Care Team (Late st Contact Info) Description 06/12/2021 Telephone [place] [phone] Chelsie Lauren Social History Tobacco Use Types [...] on filedocumented in this encounter Care Teams Costuming Supervisor Relationship Specialty Start Date End Date Ana Her MD [address] [place] [address] PCP - General 07/29/13 documented as of this encounter
--- OUTSIDE RECORDS SUMMARY | 2024-06-15 10:49 | XMS_ITS | Encounter Summary ---
Author Organization [facility] [place] [address] Care Team Providers Care Stained Glass Painter Name Role Phone Ana Her MD Primary Care Provider [phone] Encounter Details Date Type Department Care Team (Latest Contact Info) Description 01/23/2022 12:15 PM EDT TH Visit (TeleHealth) [place] [address] Laura Will MD [facility] [place] [address] Paraesophageal hernia Social History Tobacco Use Types [...] her. She is followed by cardiology at [facility], and is on xarelto. Impression: Symptomatic paraesophageal [...] gangrene documented in this encounter Care Teams Stained Glass Painter Relationship Specialty Start Date End Date Ana Her MD [address] [facility] [address] [place] [address] PCP - General 07/29/13 documented as of this encounter
--- OUTSIDE RECORDS SUMMARY | 2024-06-15 10:49 | XMS_ITS | Encounter Summary ---
Author Organization [facility] Address [facility] [place] [address] Care Team Providers Care Tool Maker Apprentice Name Role Phone Ana Her MD Primary Care Provider [phone] Encounter Details Date Type Department Care Team (Late st Contact Info) Description 09/03/2021 Ancillary Procedure Radiology Library at [place] [address] Laura Will MD [facility] [place] [address] Social History Tobacco Use Types Packs/Day Years [...] Chest (09/03/2021 12:00 AM EDT) Narrative [facility] - 11/28/2021 1:22 PM EDT This exam is auto-finalizing. It's purpose is for storage only. Laura Will MD IMG FILM LIBRARY OR DERABLES Performing Organization Address City/State/[facility] Co de Phone Number [place], [place] documented in this encounter Visit Diagnoses Not on filedocumented in this encounter Care Teams Tool Maker Apprentice Relationship Specialty Start Date End Date Ana Her MD [address] [facility] 1 [place] [address] PCP - General 07/29/13 documented as of this encounter
--- OUTSIDE RECORDS SUMMARY | 2024-06-15 10:49 | XMS_ITS | Encounter Summary ---
[place] [address] Care Team Providers Care Parts Sales Manager Name Role Phone Ana Her MD Primary Care Provider [phone] Encounter Details Date Type Department Care Team (Late st Contact Info) Description 01/08/2022 7:30 AM EDT - 01/08/2022 8:40 AM EDT Surgery [place] [phone] Laura Park MD [facility] [place] [address] EGD, UPPER GI ENDOSCOPY (WRVU 2.09) Social [...] a nurse in the Thoracic Clinic at [phone]. After hours or on weekends or holidays please call: [phone] and ask to speak to the Thoracic Physician splunk consultant. Diet: You should follow a clear [...] - 5pm): General Surgery and Bariatric Surgery [phone] Bariatric Surgeons: Drs. Park and John [phone] Certified Master Locksmith: [phone] Dietitians: [phone] Outside of regular business hours, including weekends and holidays: Ask for General Surgery resident splunk consultant [phone] Please note, this call will be answered [...] of left breast of female, estrogen receptor dofpdrqnE73.512, Z17.0 ??? Anemia D64.9 ??? Aortic valve [...] 6.43) performed by Malika Chen MD at [facility] MAIN OR ??? PRO INTRAOP SENTINEL LYMPH ID W/DYE INJECTION Left 03/30/2017 ?? INTRAOPERATIVE ID (MAPPING) SENTINEL LYMPH NODE,INCLUDES INJECTION (WRVU 2.5) performed by Malika Chen MD at [facility] MAIN OR ??? PRO MASTECTOMY PARTIAL Left 03/30/2017 ?? MASTECTOMY PARTIAL (WRVU 10.13) performed by Malika Chen MD at [facility] MAIN OR ?? Cholecystectomy ?? Medications: [...] Operative Note Patient Name: Digna Olson : [id number] MR#: [id number] Case Date: 01/08/2022 Surgeon: Surgeon(s) and Role: [...] Info Order Time SPECIMEN TO PATHOLOGY Gastric [place] for H Pylori Hiatal hernia Gastric [place] for H Pylori excision 01/08/2022 8:15 AM [...] 8:14 AM EDT Upper GI Endoscopy, Diagnostic (54455) Yes 01/08/2022 7:40 AM EDT Hiatal hernia POCT GLUCOSE Routine 01/08/2022 6:33 AM EDT documented in this encounter Results * Specimen to Pathology (01/08/2022 8:15 AM EDT) AP Specimen 01/08/2022 8:15 AM EDT 01/08/2022 8:[address] [facility] - 01/08/2022 8:15 AM EDT Specimen requisition ordered. ??Separate Pathology report to follow Laura Park MD PATHOLOGY/CYTOLOGY ORDERABLES [facility] [place] [address] * Surgical Pathology Report (01/08/2022 8:14 AM EDT) Final Diagnosis [id number] ? Location: SDP; SD36; A The signing [...] [facility] Dept. of Pathology, [place], [place] SPECIMEN(S) SUBMITTED A - Gastric ??Antrum for H Pylori, excision (1) CLINICAL INFORMATION Hiatal hernia SPECIMEN PROCESSING A - Labeled/Fixativ e: Gastric antrum for H. pylori, formalin. Quantity/Size: Single, 0.3 cm. Tissue Description: Soft, pink tissue. Sections/Proces sing: Submitted en toto ??in 1 cassette labeled A1. ??sns 01/09/2022 4:[address] [facility] GI Biopsy 01/08/2022 8:14 AM EDT 01/08/2022 8:14 AM EDT Laura Park MD PATHOLOGY/CYTOLOGY ORDERABLES Performing Organization Address City/State/[facility] Co de Phone Number [facility] [place] [address] * POCT Glucose (01/08/2022 6:33 AM EDT) Glucose, POC 120 65 - 199 mg/dL [facility] Comment: Supplemental ranges: <140 mg/dL before meals <180 mg/dL all other times of the day Blood 01/08/2022 6:33 AM EDT 01/08/2022 6:33 AM EDT Laura Park MD POINT OF C[place] [address] documented in this encounter Visit Diagnoses Not on filedocumented in this encounter Active and Recently Administered Medications Care Teams Parts Sales Manager Relationship Specialty Start Date End Date Ana Her MD [address] [facility] 1 [place] [address] PCP - General 07/29/13 documented as of this encounter
--- OUTSIDE RECORDS SUMMARY | 2024-06-15 10:49 | XMS_ITS | Encounter Summary ---
Author [place] [address] Care Team Providers Care Business Management Manager Name Role Phone Ana Her MD Primary Care Provider [phone] Reason for Visit * Auth/Cert Specialty Diagnoses / Procedures Referred By Christiano hackett Referred To Contact Diagnoses S/P repair of paraesophageal hernia Post-Op monitoring Procedures PRO LAPARSCOPY REPAIR PARAESOPHAGEAL HERNIA INCL FUNDOPLASTY W/O MESH LAPAROSCOPIC PARAESOPHAGEAL HERNIA REPAIR W/FUNDOPLASTY, W/O MESH (WRVU 26.6) MODIFIER TOUPET FUNDOPLASTY Laura Will MD [facility] [place] [address] [facility] Referral ID Status Reason Start Date Expiration Date Visits Re quested Visits Authorized [id number] 1 1 Encounter Details Date Type Department Care Team (Late st Contact Info) Description 03/05/2022 1:58 PM EDT Anesthesia Event [place] [phone] Alisa Naqvi MD [facility] [address] [place] [address] Alessia Ramirez APR[place] [address] Anesthesia Record Procedure Summary Procedure Name Responsible [...] Procedure Summary Date: 03/05/22 Room / Location: [address] MAIN OR Anesthesia Start: 8 Anesthesia Stop: 1823 Procedures: LAPAROSCOPIC PARAESOPHAGEAL HERNIA REPAIR W/FUNDOPLASTY, W/O MESH (WRVU 26.6) (N/A Abdomen) MODIFIER TOUPET FUNDOPLASTY (N/A Abdomen) Diagnosis: (Paraesophageal Hernia) Surgeons: Laura Will MD Responsible Provider: Alisa Naqvi MD Anesthesia Type: general ASA Status: 3 All Anesthesia Providers: Anesthesiologist: Brayan Hubbard MD; Alisa Naqvi MD; Dario Farnco MD Classification And Treatment Director: Mo Vance DO Vitals Value Taken Time BP 125/75 03/05/22 1821 Temp Pulse 77 03/05/22 1823 Resp 18 03/05/22 1823 SpO2 100 % 03/05/22 182 Pain Level Vitals shown include unvalidated device data. Patient Location: PACU/[facility] Level of Consciousness: Awake and [...] of left breast of female, estrogen receptor tionakiy65/25/2017 ??? Bicuspid aortic valve 06/10/2016 ??? Dyspnea [...] by Malika Chen MD at [facility] MAIN OR ??? PRO INTRAOP SENTINEL LYMPH ID W/DYE INJECTION Left 03/30/2017 INTRAOPERATIVE ID (MAPPING) SENTINEL LYMPH NODE,INCLUDES INJECTION (WRVU 2.5) performed by Malika Chen MD at [facility] MAIN OR ??? PRO MASTECTOMY PARTIAL Left 03/30/2017 MASTECTOMY PARTIAL (WRVU 10.13) performed by Malika Chen MD at [facility] MAIN OR ??? PRO UPPER GI ENDOSCOPY, DIAGNOSTIC N/A 01/08/2022 EGD, UPPER GI ENDOSCOPY performed by Laura Will MD at [facility] MAIN OR Social History Tobacco Use ??? [...] 45%. Wall motion normal. ?? Echo 06/19/21 ([facility]): normal biventricular size and function, symmetric LVH. [...] PONV ppx Mo Shreyas DO Pinky 03/04/2022 Studio Receptionist Pager #[phone] Region - Other Informed Consent: Anesthetic plan [...] 45%. Wall motion normal. ?? Echo 06/19/21 ([facility] General): normal biventricular size and function, [...] 1 view ?? Followed by cardiology at [facility], notes under Care Everywhere. Last seen [...] documented in this encounter Care Teams Business Management Manager Relationship Specialty Start Date End Date Ana Her MD [address] [facility] 1 [place] [address] PCP - General 07/29/13 documented as of this encounter
--- OUTSIDE RECORDS SUMMARY | 2024-06-15 10:50 | XMS_ITS | Encounter Summary ---
Author Organization [facility] [place] [address] Care Team Providers Care Baggage Security Checker Name Role Phone Ana Her MD Primary Care Provider [phone] Encounter Details Date Type Department Care Team (Late st Contact Info) Description 05/31/2019 1:00 PM EST Office [place] [address] Jeanine Lobato [facility] [place] [address] Encounter for follow-up surveillance of breast cancer; [...] obtained which revealed IDC which is ER/CA+, Her2-. She hasno known breast masses, no adenopathy, no nipple discharge. 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 Jeanine Lobato APRN Surgical Oncology P [phone] F [phone] [facility] documented in this encounter Plan of [...] mammogram documented in this encounter Care Teams Baggage Security Checker Relationship Specialty Start Date End Date Ana Her MD [facility] [address] [facility] 1 [place] [address] PCP - General 07/29/13 documented as of this encounter
--- OUTSIDE RECORDS SUMMARY | 2024-06-15 10:50 | XMS_ITS | Encounter Summary ---
Author Organization [facility] [place] [address] Care Team Providers Care Social Services Analyst Name Role Phone Ana Her MD Primary Care Provider [phone] Encounter Details Date Type Department Care Team (Latest Contact Info) Description 05/31/2019 10:16 AM EST - 05/31/2019 11:59 PM EST Hospital Encounter Mammography/[place] [phone] Jeanine Lobato APRN [facility] [place] [address] History of breast cancer Discharge Disposition: Home [...] BIRADS CATEGORY 2: Benign findings. * ??[employer] and [employer] of [...] breast documented in this encounter Care Teams Social Services Analyst Relationship Specialty Start Date End Date Ana Her MD [address] [place] [address] PCP - General 07/29/13 documented as of this encounter
--- OUTSIDE RECORDS SUMMARY | 2024-06-15 10:50 | XMS_ITS | Encounter Summary ---
Author Organization [facility] [place] [address] Care Team Providers Care Category Development Manager Name Role Phone Ana Her MD Primary Care Provider [phone] Encounter Details Date Type Department Care Team (Latest Contact Info) Description 03/30/2017 8:30 AM [facility] Hospital En[place] [address] Malika Chen MD [facility] [place] [address] Malignant neoplasm of upper-outer quadrant of left [...] documented in this encounter Results * Mammo [place] Node Injection (03/30/2017 9:01 AM EST) Anatomical [...] mCi documented in this encounter Care Teams Category Development Manager Relationship Specialty Start Date End Date Ana Her MD [address] [place] [address] PCP - General 07/29/13 documented as of this encounter
--- OUTSIDE RECORDS SUMMARY | 2024-06-15 10:50 | XMS_ITS | Encounter Summary ---
Author Organization [facility] [place] [address] Care Team Providers Care Hat Stock Laminating Machine Operator Name Role Phone Ana Her MD Primary Care Provider [phone] 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 * Diagnostic Test (Routine) - Closed Specialty Diagnoses / Procedures Referred By Contac t Referred To Contact Radiology Diagnoses Malignant neoplasm of lower-outer quadrant of left breast of female, estrogen receptor positive Osteopenia of neck of femur, unspecified laterality detention current use of aromatase inhibitor Procedures DXA Central-Spine, Hip, And/Or Whole Body (Generic) Ricky oLwry MD [facility] HEMATOLOGY/[place] [address] [facility] Rad Xray [address] [place] [address] [place] [id number] Referral ID Status Reason Start Date Expiration Date V isits Requested Visits Authorized [id number] Closed Specialty Service Requested 05/10/2018 05/10/2019 1 1 Reason for Visit * Diagnostic Test (Routine) - Closed Specialty Diagnoses / Procedures Referred By Contac t Referred To Contact Radiology Diagnoses Malignant neoplasm of lower-outer quadrant of left breast of female, estrogen receptor positive Osteopenia of neck of femur, unspecified laterality detention current use of aromatase inhibitor Procedures DXA Central-Spine, Hip, And/Or Whole Body (Generic) Ricky Lowry MD [facility] HEMATOLOGY/[place] [address] [facility] Rad Xray [address] [place] [address] Dr [place], [place] [address] Referral ID Status Reason Start Date Expiration Date V isits Requested Visits Authorized [id number] Closed Specialty Service Requested 05/10/2018 05/10/2019 1 1 Encounter Details Date Type Department Care Team (Latest Contact Info) Description 11/09/2018 1:03 PM EDT - 11/09/2018 11:59 PM EDT Hospital Encounter XRay at [address] [place] [address] Ricky Lowry MD Malignant neoplasm of lower-outer quadrant of left breast of female, estrogen receptor positive; Osteopenia of neck of femur, unspecified laterality; 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 Paper copies will be sent to providers without E-DH access. If you have received this report without the data sheet and do not have access to [employer], please contact Radiology Director Of Nurses Registry at [phone] Thursday thru Thursday 8am-4pm. Thank you for [...] BMD measurements and plots are available in [employer] the imaging tab. Paper copies will be sent to providers without Sub[employer] access.If you have received this report without the data sheet and do not haveaccess to Subtext[employer], please contact Radiology Director Of Nurses Registry at [phone] Thursday thruFriday 8am-4pm. Thank you for letting us participate in the care of this patient. Forquestions regarding this report, please contact the number below. Electronically signed by: Khushi Hughes [facility] [place] ([phone]),at 11/10/2018 10:55 AM Ricky Lowry MD IMG DEXA ORDERABLES documented in this encounter Visit Diagnoses Diagnosis Malignant neoplasm of lower-outer quadrant of left breast of female, estrogen receptor positive Osteopenia of neck of femur, unspecified laterality detention current use of aromatase inhibitor Use of aromatase inhibitors documented in this encounter Care Teams Hat Stock Laminating Machine Operator Relationship Specialty Start Date End Date Ana Her MD [facility] [address] [facility] 1 [place] [address] PCP - General 07/29/13 documented as of this encounter
--- OUTSIDE RECORDS SUMMARY | 2024-06-15 10:50 | XMS_ITS | Encounter Summary ---
[place] [address] Care Team Providers Care Gas Dispenser Name Role Phone Ana Her MD Primary Care Provider [phone] Reason for Visit * Reason Comments Follow-up Encounter Details Date Type Department Care Team (Late st Contact Info) Description 11/29/2019 2:45 PM EDT Office Visit [place] [phone] Ricky Lowry MD Malignant neoplasm of lower-outer [...] documented in this encounter Progress Notes * Ricyk Lowry MD - 11/29/2019 2:45 PM EDT [...] ??Excision with image-guided localization ?Lymph Node Sampling: ??[place] lymph node(s) ?Specimen Laterality: ??Left Tumor ?Histologic [...] ??DCIS not present in specimen Lymph Nodes ?[place] Lymph Nodes: [place] lymph node biopsy performed ?Number of [place] Nodes Examined: ??3 ?Number of Lymph Node(s) [...] stenosis > A Fib. Cardiology at [facility]. S/P successful cardioversion May [...] positive documented in this encounter Care Teams Gas Dispenser Relationship Specialty Start Date End Date Ana Her MD [address] [place] [address] PCP - General 07/29/13 documented as of this encounter
--- OUTSIDE RECORDS SUMMARY | 2024-06-15 10:50 | XMS_ITS | Encounter Summary ---
Author Organization [facility] [place] [address] Care Team Providers Care Branch Associate Teller Name Role Phone Ana Her MD Primary Care Provider [phone] Encounter Details Date Type Department Care Team (Late st Contact Info) Description 04/23/2017 [place] [address] Marjorie Ariza Social History Tobacco Use Types [...] Marjorie Ariza - 04/23/2017 2:43 PM EST Farm Reporter Printer Slotter Operator met with pt after consultation with [...] filedocumented in this encounter Care Teams Branch Associate Teller Relationship Specialty Start Date End Date Ana Her MD [address] [facility] 1 [place] [address] PCP - General 07/29/13 documented as of this encounter
--- OUTSIDE RECORDS SUMMARY | 2024-06-15 10:50 | XMS_ITS | Encounter Summary ---
Author Organization [facility] [place] [address] Care Team Providers Care Biztalk Developer Name Role Phone Ana Her MD Primary Care Provider [phone] Encounter Details Date Type Department Care Team (Latest Contact Info) Description 05/22/2020 10:46 AM EST - 05/22/2020 11:59 PM [facility] Hospital Encounter Mammography[place] [address] Jeanine Lobato APRN [facility] [place] [address] Malignant neoplasm of lower-outer quadrant of left [...] mammogram documented in this encounter Care Teams Biztalk Developer Relationship Specialty Start Date End Date Ana Her MD [facility] [address] [facility] 1 [place] [address] PCP - General 07/29/13 documented as of this encounter
--- OUTSIDE RECORDS SUMMARY | 2024-06-15 10:50 | XMS_ITS | Encounter Summary ---
Author Organization [facility] [place] [address] Care Team Providers Care Paint Roller Covermaker Name Role Phone Ana Her MD Primary Care Provider [phone] Encounter Details Date Type Department Care Team (Latest Contact Info) Description 03/30/2017 8:30 AM [facility] Hospital Encounter [place] [address] Malika Chen MD [facility] [address] Malignant neoplasm of upper-outer quadrant of left [...] mg documented in this encounter Care Teams Paint Roller Covermaker Relationship Specialty Start Date End Date Ana Her MD [address] [place] [address] PCP - General 07/29/13 documented as of this encounter
--- OUTSIDE RECORDS SUMMARY | 2024-06-15 10:50 | XMS_ITS | Encounter Summary ---
[place] [address] Care Team Providers Care Freight Hustler Name Role Phone Ana Her MD Primary Care Provider [phone] 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 * Diagnostic Test (Routine) - Closed Specialty Diagnoses / Procedures Referred By Christiano hackett Referred To Contact Radiology Diagnoses Malignant neoplasm of lower-outer quadrant of left breast of female, estrogen receptor positive Osteopenia of neck of femur, unspecified laterality longterm current use of aromatase inhibitor Procedures DXA Central-Spine, Hip, And/Or Whole Body (Generic) Ricky Lowry MD [facility] DR HEMATOLOGY/[place] [address] [facility] Rad Xray [address] [place] [address] [place] [address] Referral ID Status Reason Start Date Expiration Date V isits Requested Visits Authorized [id number] Closed Specialty Service Requested 05/10/2018 05/10/2019 1 1 Reason for Visit * Reason Comments Follow-up Encounter Details Date Type Department Care Team (Late st Contact Info) Description 05/10/2018 2:45 PM EST Office Visit Hematology and Oncology at [facility] [place] [address] Ricky Lowry MD Malignant neoplasm [...] ??Excision with image-guided localization ?Lymph Node Sampling: ??[place] lymph node(s) ?Specimen Laterality: ??Left Tumor ?Histologic [...] ??DCIS not present in specimen Lymph Nodes ?[place] Lymph Nodes: [place] lymph node biopsy performed ?Number of [place] Nodes Examined: ??3 ?Number of Lymph Node(s) [...] recent DEXA scan was last year at [facility]. There is no history of thromboembolic [...] this week (at [facility] No new problems with VELEZ, diplopia, cough, [...] chemotherapy. TACHO. Renewal of anastrazole sent. Given [facility] brochure to share with cousins. All [...] BMD measurements and plots are available in [employer] under the imaging tab. Paper copies will be sent to providers without [place] access. If you have received this report without the data sheet and do not have access to [place], please contact Radiology Poultry Eviscerator at [phone] Thursday thru Thursday 8am-4pm. Thank you for letting us participate in the care of this patient. For questions regarding this report, please contact the number below. ? Electronically signed by: Khushi Hughes [facility] ([phone]), at 11/10/2018 10:55 AM Narrative 11/10/2018 10:55 [...] BMD measurements and plots are available in [employer] the imaging tab. Paper copies will be sent to providers without [place] access.If you have received this report without the data sheet and do not haveaccess to [place], please contact Radiology Poultry Eviscerator at [phone] Thursday thruFriday 8am-4pm. Thank you for letting us participate in the care of this patient. Forquestions regarding this report, please contact the number below. Electronically signed by: Khushi Hughes [facility] ([phone]),at 11/10/2018 10:55 AM Ricky Lowry MD IMG [...] inhibitors documented in this encounter Care Teams Freight Hustler Relationship Specialty Start Date End Date Ana Her MD [address] [place] [address] PCP - General 07/29/13 documented as of this encounter
--- OUTSIDE RECORDS SUMMARY | 2024-06-15 10:50 | XMS_ITS | Encounter Summary ---
Author Organization [facility] [place] [address] Care Team Providers Care Customer Service And Sales Consultant Name Role Phone Ana Her MD Primary Care Provider [phone] Encounter Details Date Type Department Care Team (Late st Contact Info) Description 10/23/2017 9:43 AM EDT - 10/23/2017 11:59 PM EDT Hospital [place] [phone] Hiral Padgett, WENDY History of breast cancer [...] breast documented in this encounter Care Teams Customer Service And Sales Consultant Relationship Specialty Start Date End Date Ana Her MD [address] [place] [address] PCP - General 07/29/13 documented as of this encounter
--- OUTSIDE RECORDS SUMMARY | 2024-06-15 10:50 | XMS_ITS | Encounter Summary ---
[place] [address] Care Team Providers Care Professor Of Graphic Design Name Role Phone Ana Her MD Primary Care Provider [phone] Reason for Visit * Reason Comments Schedule Office Case Encounter Details Date Type Department Care Team (Late st Contact Info) Description 04/23/2017 2:00 PM EST Office Visit Hematology [place] [phone] Ricky Lowry MD Malignant neoplasm of lower-outer [...] with image-guided localization ?Lymph Node Sampling: ??[place] lymph node(s) ?Specimen Laterality: ??Left Tumor ?Histologic [...] not present in specimen Lymph Nodes ?[place] Lymph Nodes: [place] lymph node biopsy performed ?Number of [place] Nodes Examined: ??3 ?Number of Lymph Node(s) [...] DEXA scan was in this year at [facility]. There is no history of thromboembolic [...] positive documented in this encounter Care Teams Professor Of Graphic Design Relationship Specialty Start Date End Date Ana Her MD [address] [place] [address] PCP - General 07/29/13 documented as of this encounter
--- OUTSIDE RECORDS SUMMARY | 2024-06-15 10:50 | XMS_ITS | Encounter Summary ---
Author Organization [facility] [place] [address] Care Team Providers Care Director Of Teaching And Learning Name Role Phone Ana Her MD Primary Care Provider [phone] Reason for Visit * Reason Comments Follow-up Encounter Details Date Type Department Care Team (Late st Contact Info) Description 05/31/2019 11:45 AM EST Office Visit Hematology [place] [phone] Ricky Lowry MD Malignant neoplasm of lower-outer [...] with image-guided localization ?Lymph Node Sampling: ??[place] lymph node(s) ?Specimen Laterality: ??Left Tumor ?Histologic [...] not present in specimen Lymph Nodes ?[place] Lymph Nodes: [place] lymph node biopsy performed ?Number of [place] Nodes Examined: ??3 ?Number of Lymph Node(s) [...] in this encounter Care Teams Director Of Teaching And Learning Relationship Specialty Start Date End Date Ana Her MD [facility] [address] [facility] [address] [place] [address] PCP - General 07/29/13 documented as of this encounter
--- OUTSIDE RECORDS SUMMARY | 2024-06-15 10:50 | XMS_ITS | Encounter Summary ---
[place] [address] Care Team Providers Care Financial Planning Assistant Name Role Phone Ana Her MD Primary Care Provider [phone] Encounter Details Date Type Department Care Team (Late st Contact Info) Description 05/10/2018 2:15 PM EST Office Visit [place] [address] Hiral Padgett, WENDY History of breast cancer [...] of this encounter Progress Notes * Hiral aPdgett APRN - 05/10/2018 2:15 PM EST Digna is a 72 [address] patient of Dr Chen who returns today interval surgical follow up. On 03/30/17 she underwent a left breast WLE/sentinel node excision. Pathology showed: Specimen Parts: ?? A - Left axilliary sentinel node B - Left breast partial mastectomy Specimen ?Procedure: ??Excision with image-guided localization ?Lymph Node Sampling: ?? [place] lymph node(s) ?Specimen Laterality: ?? Left Tumor [...] ?DCIS not present in specimen Lymph Nodes ?[place] Lymph Nodes: ?? [place] lymph node biopsy performed ?Number of [place] Nodes Examined: ?3 ?Number of Lymph Node(s) [...] mammogram today is cat 2. Leaving for [place] later today [place] cardiac [place] [facility] [place] Objective: Physical Exam Constitutional: [...] breast documented in this encounter Care Teams Financial Planning Assistant Relationship Specialty Start Date End Date Ana Her MD [address] [place] [address] PCP - General 07/29/13 documented as of this encounter
--- OUTSIDE RECORDS SUMMARY | 2024-06-15 10:50 | XMS_ITS | Encounter Summary ---
Author Organization [facility] [place] [address] Care Team Providers Care Fibre Composite Technician Name Role Phone Ana Her MD Primary Care Provider [phone] Reason for Visit * Reason Comments Follow-up Encounter Details Date Type Department Care Team (Late st Contact Info) Description 10/23/2017 11:00 AM EDT Office Visit Hematology [place] [address] Mayra Page APRN [facility] [place] [address] Malignant neoplasm of lower-outer quadrant of left [...] this encounter Progress Notes * Mayra Page, SUPERVISOR LENDING ACTIVITIES - 10/23/2017 11:00 AM EDT Digna Olson [...] ??Excision with image-guided localization ?Lymph Node Sampling: ??[place] lymph node(s) ?Specimen Laterality: ??Left Tumor [...] ??DCIS not present in specimen Lymph Nodes ?[place] Lymph Nodes: [place] lymph node biopsy performed ?Number of [place] Nodes Examined: ??3 ?Number of Lymph Node(s) Examined (sentinel and nonsentinel): 3 ?Lymph Node Involvement: None identified Stage (pTNM) ?Pathological Stage: ?? pT1b pN0 PMH: Past Medical History: Diagnosis Date ??? Breast cancer ??? Fracture of tibia 12/2016 left tibial plateau ??? GERD (gastroesophageal reflux disease) ??? H/O non-insulin dependent diabetes mellitus ??? Spinal stenosis Most recent DEXA scan was 10/28/16 at [facility]. There is no history [...] positive documented in this encounter Care Teams Fibre Composite Technician Relationship Specialty Start Date End Date Ana Her MD [address] [place] [address] PCP - General 07/29/13 documented as of this encounter
--- OUTSIDE RECORDS SUMMARY | 2024-06-15 10:50 | XMS_ITS | Encounter Summary ---
Author Organization [facility] [place] [address] Care Team Providers Care Chisel Trimmer Name Role Phone Ana Her MD Primary Care Provider [phone] Reason for Visit * Reason Comments Follow Up Surgery Encounter Details Date Type Department Care Team (Late st Contact Info) Description 07/13/2017 1:30 PM EDT Office [place] [phone] Hiral Padgett, WENDY History of breast cancer [...] with image-guided localization ?Lymph Node Sampling: ?? [place] lymph node(s) ?Specimen Laterality: ?? Left Tumor [...] ?DCIS not present in specimen Lymph Nodes ?[place] Lymph Nodes: ?? [place] lymph node biopsy performed ?Number of [place] Nodes Examined: ?3 ?Number of Lymph Node(s) [...] breast documented in this encounter Care Teams Chisel Trimmer Relationship Specialty Start Date End Date Ana Her MD [facility] [address] [place] [address] PCP - General 07/29/13 documented as of this encounter
--- OUTSIDE RECORDS SUMMARY | 2024-06-15 10:50 | XMS_ITS | Encounter Summary ---
Author Organization Counts Include [facility] Address [facility] [place] [address] Care Team Providers Care Floor Layer Helper Name Role Phone Ana Her MD Primary Care Provider [phone] Reason for Visit * Reason Comments Radiation Consult * Consultation (Routine) - Closed Specialty Diagnoses / Procedures Referred By Christiano hackett Referred To Contact Radiation Oncology Diagnoses Breast cancer Malika Chen MD [facility] [place] [address] Stj Rad Onc Office [address] [place] [phone] Referral ID Status Reason Start Date Expiration Date Visits Re quested Visits Authorized [id number] Closed 03/17/2017 03/17/2018 1 1 Encounter Details Date Type Department Care Team (Late st Contact Info) Description 04/13/2017 10:00 AM EST Office Visit Radiation Oncology at [address] [address] Faye Velez MD [facility] [place] [address] Malignant neoplasm of left female breast, unspecified [...] Malika Chen MD at [facility] MAIN OR ??? PRO INTRAOP SENTINEL LYMPH ID W/DYE INJECTION Left 03/30/2017 INTRAOPERATIVE ID (MAPPING) SENTINEL LYMPH NODE,INCLUDES INJECTION (WRVU 2.5) performed by Malika Chen MD at [facility] MAIN OR ??? PRO MASTECTOMY, PARTIAL Left 03/30/2017 MASTECTOMY PARTIAL (WRVU 10.13) performed by Malika Chen MD at [facility] MAIN OR Your Medications These changes are [...] treated breast; cough; shortness of breath; tiredness. Late/group home side effects to breast discussed include: Treated [...] breast documented in this encounter Care Teams Floor Layer Helper Relationship Specialty Start Date End Date Ana Her MD [address] [place] [address] PCP - General 07/29/13 documented as of this encounter
--- OUTSIDE RECORDS SUMMARY | 2024-06-15 10:50 | XMS_ITS | Encounter Summary ---
[place] [address] Care Team Providers Care Body Technician/Painter Name Role Phone Ana Her MD Primary Care Provider [phone] Encounter Details Date Type Department Care Team (Late st Contact Info) Description 04/05/2018 Telephone [place] [phone] Adrianna Jones Social History Tobacco Use Types [...] on filedocumented in this encounter Care Teams Body Technician/Painter Relationship Specialty Start Date End Date Ana Her MD [address] [place] [address] PCP - General 07/29/13 documented as of this encounter
--- OUTSIDE RECORDS SUMMARY | 2024-06-15 10:50 | XMS_ITS | Encounter Summary ---
[place] [address] Care Team Providers Care Protection Manager Name Role Phone Ana Her MD Primary Care Provider [phone] Encounter Details Date Type Department Care Team (Late st Contact Info) Description 11/09/2018 2:45 PM EDT Office Visit Hematology [place] [address] Ricky Lowry MD Malignant neoplasm of lower-outer [...] ??Excision with image-guided localization ?Lymph Node Sampling: ??[place] lymph node(s) ?Specimen Laterality: ??Left Tumor ?Histologic [...] ??DCIS not present in specimen Lymph Nodes ?[place] Lymph Nodes: [place] lymph node biopsy performed ?Number of [place] Nodes Examined: ??3 ?Number of Lymph Node(s) [...] laterality documented in this encounter Care Teams Protection Manager Relationship Specialty Start Date End Date Ana Her MD [address] [place] [address] PCP - General 07/29/13 documented as of this encounter
--- OUTSIDE RECORDS SUMMARY | 2024-06-15 10:50 | XMS_ITS | Encounter Summary ---
[place] [address] Care Team Providers Care Health And Wellness Instructor Name Role Phone Ana Her MD Primary Care Provider [phone] Encounter Details Date Type Department Care Team (Late st Contact Info) Description 05/06/2017 Telephone Radiation Oncology at [address] [address] Maria A Antonio RN Social [...] this encounter Care Teams Health And Wellness Instructor Relationship Specialty Start Date End Date Ana Her MD [address] [facility] 1 [place] [address] PCP - General 07/29/13 documented as of this encounter
--- OUTSIDE RECORDS SUMMARY | 2024-06-15 10:50 | XMS_ITS | Encounter Summary ---
[place] [address] Care Team Providers Care Minor League Baseball Player Name Role Phone Ana Her MD Primary Care Provider [phone] Encounter Details Date Type Department Care Team (Late st Contact Info) Description 05/19/2017 Telephone Hematology [place] [phone] Sandy Chapman Social History Tobacco Use Types [...] on filedocumented in this encounter Care Teams Minor League Baseball Player Relationship Specialty Start Date End Date Ana Her MD [address] [place] [address] PCP - General 07/29/13 documented as of this encounter
--- OUTSIDE RECORDS SUMMARY | 2024-06-15 10:50 | XMS_ITS | Encounter Summary ---
Author Organization [facility] [place] [address] Care Team Providers Care Detective Bowling Alley Name Role Phone Ana Her MD Primary Care Provider [phone] Encounter Details Date Type Department Care Team (Latest Contact Info) Description 03/30/2017 8:30 AM [facility] Hospital [place] [address] Malika Chen MD [facility] [place] [address] Malignant neoplasm of upper-outer quadrant of left [...] positive documented in this encounter Care Teams Detective Bowling Alley Relationship Specialty Start Date End Date Ana Her MD [address] [place] [address] PCP - General 07/29/13 documented as of this encounter
--- OUTSIDE RECORDS SUMMARY | 2024-06-15 10:50 | XMS_ITS | Encounter Summary ---
Author Organization [facility] [place] [address] Care Team Providers Care Crm Solution Architect Name Role Phone Ana Her MD Primary Care Provider [phone] Encounter Details Date Type Department Care Team (Late st Contact Info) Description 05/10/2018 1:10 PM EST - 05/10/2018 11:59 PM EST Hospital Encounter Mammography/[place] [address] Hiral Padgett, WENDY Encounter for screening mammogram [...] cancer documented in this encounter Care Teams Crm Solution Architect Relationship Specialty Start Date End Date Ana Her MD [address] [place] [address] PCP - General 07/29/13 documented as of this encounter
--- OUTSIDE RECORDS SUMMARY | 2024-06-15 10:50 | XMS_ITS | Encounter Summary ---
[place] [address] Care Team Providers Care Medical Lab Specialist Name Role Phone Ana Her MD Primary Care Provider [phone] Encounter Details Date Type Department Care Team (Late st Contact Info) Description 04/09/2017 Abstract Radiation Oncology at [address] [phone] Maria A Antonio, RN Social History Tobacco [...] filedocumented in this encounter Care Teams Medical Lab Specialist Relationship Specialty Start Date End Date Ana Her MD [address] [place] [address] PCP - General 07/29/13 documented as of this encounter
--- OUTSIDE RECORDS SUMMARY | 2024-06-15 10:50 | XMS_ITS | Encounter Summary ---
Author Organization [facility] [place] [address] Care Team Providers Care Yardage Caller Name Role Phone Ana Her MD Primary Care Provider [phone] Encounter Details Date Type Department Care Team (Late st Contact Info) Description 03/30/2017 Notes [place] [address] January Ward MSW Social History Tobacco Use Types Packs/Day Years Used Date Smoking Tobacco: Never Smokeless Tobacco: Never Sex and Gender Information Value Date Recorded Sex Assigned at Not on file Gender Identity Not on file Sexual Orientation Not on file documented as of this encounter Progress Notes * Jaunary Ward MSW - 03/30/2017 10:20 AM EST Pt is a 71 year old, female who was admitted for a lumpectomy/SLNB as she was recently diagnosed with invasive mucinous carcinoma. [facility] attempted to meet with pt in Same Day surgery this morning but she was still in radiology. I spoke with her ex-, Keith, who states she will be staying with him tondneise. Their granddaughters are traveling from [place] and plan to accompany pt to see her commercial escrow assistant at [facility] tomorrow. Pt has been followed by this physician for her cardiac problems. [facility] will continue to provide support and resources to pt. documented in this encounter Plan of Treatment Not on file documented as of this encounter Visit Diagnoses Not on filedocumented in this encounter Care Teams Yardage Caller Relationship Specialty Start Date End Date Ana Her MD [address] [facility] 1 [place] [address] PCP - General 07/29/13 documented as of this encounter
--- OUTSIDE RECORDS SUMMARY | 2024-06-15 10:51 | XMS_ITS | Encounter Summary ---
Author Organization [facility] Address [facility] [place] [address] Care Team Providers Care Drill Operator Pneumatic Name Role Phone Unavailable Primary Care Provider Unavailabl e Encounter Details Date Type Department Care Team (Latest Contact Info) Description 01/29/2013 - 01/29/2013 11:59 PM EDT Hospital Encounter Radiology Library at [facility] [place] [address] Jackie Cisneros APRN [facility] [place] [address] Discharge Disposition: Home Social History Tobacco Use [...]
--- OUTSIDE RECORDS SUMMARY | 2024-06-15 10:51 | XMS_ITS | Referral Summary ---
Author Organization [facility] Address [address] [place] [address] Care Team Providers Care Steel Spar Operator Name Role Phone Unknown, Provider MD Primary Care Provider Unava ilable Social History Tobacco Use Types Packs/Day Years Used Date Smoking Tobacco: Never Assessed Comments Unknown Sex and Gender Information Value Date Recorded Sex Assigned at Not on file Legal Sex Female 9:32 EDT Gender Identity Not on file Sexual Orientation Not on file Plan of Treatment Not on file Care Teams Steel Spar Operator Relationship Specialty Start Date End Date Unknown, Provider, PCP - General 01/13/14
--- OUTSIDE RECORDS SUMMARY | 2024-06-15 10:51 | XMS_ITS | Encounter Summary ---
Author Organization [facility] Address [facility] [place] [address] Care Team Providers Care Profile Stitching Machine Operator Name Role Phone Unavailable Primary Care Provider Unavailabl e Encounter Details Date Type Department Care Team (Latest Contact Info) Description 12/25/2010 - 12/25/2010 11:59 PM EDT Hospital Encounter Radiology Library at [facility] [place] [address] Jackie Cisneros APRN [employer] [place] [address] Discharge Disposition: Home Social History Tobacco Use [...] Only Mammo (12/25/2010 12:00 AM EDT) Narrative [facility] - 02/23/2017 3:27 PM EDT This exam is for storage only and is auto-finalizing. Jackie Cisenros APRN IMG FILM LIBRARY ORD ERABLES NAD[place] Sethi documented in this encounter Visit Diagnoses Not on filedocumented in this encounter
--- OUTSIDE RECORDS SUMMARY | 2024-06-15 10:51 | XMS_ITS | Encounter Summary ---
[place] [address] Care Team Providers Care Director Hydrogen Storage Engineering Name Role Phone Ana Her MD Primary Care Provider [phone] 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 * Surgical (Routine) - Closed Specialty Diagnoses / Procedures Referred By Christiano hackett Referred To Contact Orthopaedics Diagnoses Lumbar spinal stenosis Michelle Hurtado APRN [facility] [place] [address] [facility] [address] [place] [address] Referral ID Status Reason Start Date Expiration Date V isits Requested Visits Authorized [id number] Closed Consult, Test & Treat 09/08/2014 09/08/2015 3 3 Encounter Details Date Type Department Care Team (Late st Contact Info) Description 09/08/2014 Orders [place] [address] Michelle Hurtado STARTING GATE DRIVER [facility] [place] [address] Lumbar spinal stenosis Social History Tobacco Use [...] claudication documented in this encounter Care Teams Director Hydrogen Storage Engineering Relationship Specialty Start Date End Date Ana Her MD [facility] [address] [facility] [address] [place] [address] PCP - General 07/29/13 documented as of this encounter
--- OUTSIDE RECORDS SUMMARY | 2024-06-15 10:51 | XMS_ITS | Encounter Summary ---
Author Organization [facility] Address [address] [place] [address] Care Team Providers Care Jewelry Polisher Name Role Phone Unknown, Provider MD Primary Care Provider Unava ilable Encounter Details Date Type Department Care Team (Late st Contact Info) Description 11/19/[address] [facility] Pathology & Laboratory Medicine - [facility] [address] [place], [place] [address] Outr Resulting Lab, Provider Social History Tobacco [...] 201 - 352 mg/dL 11/20/2023 9:45 EDT [facility] Blood VENOUS BLOOD / Unknown 11/19/2023 6:05 EDT 11/19/2023 17:32 EDT us Provider Outr Resulting Lab CHEMISTRY & BLOOD GA S ORDERABLES Final Result [facility] [address] [place], [place] [address] documented in this encounter Visit Diagnoses Not on filedocumented in this encounter Care Teams Jewelry Polisher Relationship Specialty Start Date End Date Unknown, Provider, PCP - General 01/13/14 documented as of this encounter
--- OUTSIDE RECORDS SUMMARY | 2024-06-15 10:51 | XMS_ITS | Encounter Summary ---
Author Organization [facility] Address [facility] [place] [address] Care Team Providers Care Auto Customize Painter Name Role Phone Unavailable Primary Care Provider Unavailabl e Encounter Details Date Type Department Care Team (Latest Contact Info) Description 12/19/2009 - 12/19/2009 11:59 PM EDT Hospital Encounter Radiology Library at [facility] [place] [address] Jackie Cisneros APRN [facility] [place] [address] Discharge Disposition: Home Social History Tobacco Use [...] Mammo (12/19/2009 12:00 AM EDT) Narrative [facility] - 02/23/2017 3:29 PM EDT This exam is for storage only and is auto-finalizing. Jackie Cisneros APRN IMG FILM LIBRARY ORD ERABLES NADINE Sethi documented in this encounter Visit Diagnoses Not on filedocumented in this encounter
--- OUTSIDE RECORDS SUMMARY | 2024-06-15 10:51 | XMS_ITS | Encounter Summary ---
Author Organization [facility] Address [address] [place] [address] Care Team Providers Care Top Lift Scourer Name Role Phone Unknown, Provider MD Primary Care Provider Unava ilable Encounter Details Date Type Department Care Team (Late st Contact Info) Description 04/06/2022 Lab Requisition [facility] Pathology & Laboratory Medicine - [facility] [address] [place] [address] Outr Resulting Lab, Provider Social History Tobacco [...] Negative Negative 04/06/2022 22:54 EST [facility] Shigella/Enteroin vasive E. coli Negative Negative 04/06/2022 22:54 EST [facility] HN LAB CAMPYLOBACTER PCR Negative Negative 04/06/2022 22:54 EST [facility] Shiga Toxin PCR Negative Negative 22:54 EST [facility] Feces SPECIMEN FROM RECTUM / Unknown 04/05/2022 10:41 EST 04/06/2022 18:31 EST us Provider Outr Resulting Lab MICROBIOLOGY - GENER AL ORDERABLES Final Result [facility] [address] [place] [address] documented in this encounter Visit Diagnoses Not on filedocumented in this encounter Care Teams Top Lift Scourer Relationship Specialty Start Date End Date Unknown, Provider, PCP - General 01/13/14 documented as of this encounter
--- OUTSIDE RECORDS SUMMARY | 2024-06-15 10:51 | XMS_ITS | Encounter Summary ---
Author Organization [facility] [place] [address] Care Team Providers Care Venetian Blind Maker Name Role Phone Ana Her MD Primary Care Provider [phone] Encounter Details Date Type Department Care Team (Latest Contact Info) Description 02/25/2017 1:32 PM EDT - 02/25/2017 1:35 PM EDT Hospital En[place] [phone] Maryam Yee MD [facility] [place] [place] [address] Abnormal mammogram Discharge Disposition: Home Social History [...] PM EDT 02/25/2017 3:02 PM EDT Narrative [facility] - 02/25/2017 3:02 PM EDT Specimen requisition ordered. ??Separate Pathology report to follow Enzo Burkett MD PATHOLOGY/CYTOLOGY O [facility] [place] [address] documented in this encounter Visit Diagnoses Diagnosis [...] mg documented in this encounter Care Teams Venetian Blind Maker Relationship Specialty Start Date End Date Ana Her MD [address] [place] [address] PCP - General 07/29/13 documented as of this encounter
--- OUTSIDE RECORDS SUMMARY | 2024-06-15 10:51 | XMS_ITS | Encounter Summary ---
[place] [address] Care Team Providers Care Home Health Care Worker Name Role Phone Ana Her MD Primary Care Provider [phone] Reason for Visit * Reason Comments Low Back Pain Bilateral Hip Pain when standing or wal jaquelin Encounter Details Date Type Department Care Team (Late st Contact Info) Description 09/12/2014 11:20 AM EDT Office [place] [phone] Kris Benoit MD Neurogenic claudication due to [...] pain free. Lumbar MRI from 08/16/2014 from [facility] is notable for multilevel degenerative changes L2-L3, L3-L4, L4-L5, L5-S1. At L2-L3, she has [id number] spinal stenosis, but she has no leg [...] claudication documented in this encounter Care Teams Home Health Care Worker Relationship Specialty Start Date End Date Ana Her MD [address] [place] [address] PCP - General 07/29/13 documented as of this encounter
--- OUTSIDE RECORDS SUMMARY | 2024-06-15 10:51 | XMS_ITS | Encounter Summary ---
Author Organization [facility] Address [facility] [place] [address] Care Team Providers Care Economic Development Manager Name Role Phone Unavailable Primary Care Provider Unavailabl e Encounter Details Date Type Department Care Team (Latest Contact Info) Description 04/04/2005 - 04/04/2005 11:59 PM EST Hospital Encounter Radiology Library at [facility] [place] [address] Jackie Cisneros APRN [facility] [place] [address] Discharge Disposition: Home Social History Tobacco Use [...]
--- OUTSIDE RECORDS SUMMARY | 2024-06-15 10:51 | XMS_ITS | Encounter Summary ---
Author Organization [facility] Address [address] [place] [address] Care Team Providers Care Learning Support Resource Room Teacher Name Role Phone Unavailable Primary Care Provider Unavailabl e Encounter Details Date Type Department Care Team (Latest Contact Info) Description 01/10/2014 20:50 EDT - 01/10/2014 23:59 EDT Hospital Encounter [facility] [address] [place] [address] Unknown, Provider, MD Discharge Disposition: Home or [...]
--- OUTSIDE RECORDS SUMMARY | 2024-06-15 10:51 | XMS_ITS | Clinical Summary ---
Author Organization [facility] Address [address] [place] [address] Care Team Providers Care Insole Tack Puller Hand Name Role Phone Unknown, Provider MD Primary [...] COVID-19 Vaccine (2023- season) 2024 Care Teams Insole Tack Puller Hand Relationship Specialty Start Date End Date Unknown, Provider, PCP - General 01/13/14
--- OUTSIDE RECORDS SUMMARY | 2024-06-15 10:51 | XMS_ITS | Encounter Summary ---
Author Organization [facility] Address [facility] [place] [address] Care Team Providers Care Dough Sheeter Name Role Phone Ana Her MD Primary Care Provider [phone] Encounter Details Date Type Department Care Team (Latest Contact Info) Description 10/28/2016 - 10/28/2016 11:59 PM EDT Hospital Encounter Radiology Library at [facility] [place] [address] Ricky Lowry MD Discharge Disposition: Home Social [...] Images (10/28/2016 12:00 AM EDT) Narrative [facility] - 04/24/2017 2:13 PM EST This exam is for storage only and is auto-finalizing. Ricky Lowry MD IMG FILM LIBRARY ORD ERABLES Performing Organization Address City/State/[facility] Co de Phone Number [place], [place] documented in this encounter Visit Diagnoses Not on filedocumented in this encounter Care Teams Dough Sheeter Relationship Specialty Start Date End Date Ana Her MD [address] [place] [address] PCP - General 07/29/13 documented as of this encounter
--- OUTSIDE RECORDS SUMMARY | 2024-06-15 10:51 | XMS_ITS | Encounter Summary ---
[place] [address] Care Team Providers Care Steam Train Driver Name Role Phone Ana Her MD Primary Care Provider [phone] Encounter Details Date Type Department Care Team (Latest Contact Info) Description 03/03/2017 7:55 AM EDT Laboratory Appointment Lab [address] [place] [address] Malignant neoplasm of left breast in female, [...] Absolute 6.45(H) 1.70 - 6.10 x10(3)/mc L [facility] Lymph % 14.4 % [facility] Lymphocytes Abs 1.3 0.9 - 3.2 x10(3)/ L [facility] Monocyte % 5.6 % [facility] Monocyte Abs 0.5 0.3 - 0.9 x10(3)/ L [facility] Eos % 6.1 % [facility] Eosinophils Abs 0.5(H) 0.0 - 0.4 x10(3)/ L [facility] Basophil % 0.6 % [facility] [...] Absolute 0.04 0.00 - 0.04 x10(3)/mc L [facility] Blood specimen (specimen) 03/03/2017 7:50 AM EDT 03/03/2017 8:03 AM EDT Narrative Resulting Agency Comment Spec In Lab Malika Chen MD HEMATOLOGY ORDERABL ES [facility] [place] [address] * (ABNORMAL) Hemogram (03/03/2017 7:50 AM EDT) White Blood Cell 8.8 4.0 - 9.5 x10(3)/mc L [facility] Red Blood Cell 3.80(L) 4.00 - 5.21 x10(6)/mc L [facility] Hemoglobin 12.3 11.7 - 15.5 gm/dL [facility] Hematocrit 36.3 35.7 - 45.8 % [facility] Mean Cell Volume 95.5(H) 82.6 - 94.[address] [facility] Mean Cell Hemoglobin 32.4(H) 27.1 - 32.[address] [facility] Mean Cell Hemoglobin Concentration 33.9 31.7 - 35.0 gm/dL [facility] Platelet 156 145 - 357 x10(3)/ L [facility] RDW Standard Deviation 48.3(H) 37.0 - 46.0 [facility] RDW coefficient of variation 13.9 11.5 - 14.1 % [facility] Mean Platelet Volume 11.9 7.6 - 12.[address] [facility] NRBC% auto 0.0 % [facility] NRBC Absolute 0.000 0.000 - 0.000 x10(3)/ L [facility] Blood specimen (specimen) 03/03/2017 7:50 AM EDT 03/03/2017 8:03 AM EDT Narrative Resulting Agency Comment Spec In Lab Malika Chen MD HEMATOLOGY ORDERABL ES [facility] [place] [address] * (ABNORMAL) Comprehensive metabolic panel (non-fasting) (03/03/2017 7:50 AM EDT) Glucose 139 65 - 199 mg/dL [facility] Comment:Diabetes: >=200 mg/d L plus symptoms Blood Urea Nitrogen 20(H) 8 - 18 mg/dL [facility] [...] mmol/L [facility] Carbon Dioxide 26 22 - 31 mmol/L [facility] Anion Gap 14 5 - 15 mmol/L [facility] Calcium 9.3 8.5 - 10.5 mg/dL [facility] Protein, Total 6.9 6.1 - 8.0 gm/dL [facility] Albumin 4.2 3.2 - 5.2 gm/dL [facility] Aspartate Aminotransferase 17 0 - 30 unit/L [facility] Alanine Aminotransferase 16 0 - 30 unit/L [facility] Alkaline Phosphatase 75 40 - 104 unit/L [facility] Bilirubin, Total 0.5 0.2 - 1.3 mg/dL [facility] Est Glomerular Filtration Rate 58(L) >=60 [facility] Comment: The reported eGFR should be multiplied by 1.2 for patients. The MDRD is not an appropriate measure of renal function for patients with body mass extremes or in patients with acute kidney failure. http://Moby[employer]/DHnkdep http://Mobyko.com/DHMCnkf Blood specimen (specimen) 03/03/2017 7:50 AM EDT 03/03/2017 8:03 AM EDT Narrative Resulting Agency Comment Spec In Lab Malika Chen MD [place] [address] documented in this encounter Visit Diagnoses Diagnosis Malignant neoplasm of left breast in female, estrogen receptor positive, unspecified site of breast documented in this encounter Care Teams Steam Train Driver Relationship Specialty Start Date End Date Ana Her MD [address] [place] [address] PCP - General 07/29/13 documented as of this encounter
--- OUTSIDE RECORDS SUMMARY | 2024-06-15 10:51 | XMS_ITS | Encounter Summary ---
Author Organization [facility] [place] [address] Care Team Providers Care Power Reactor Supervisor Name Role Phone Ana Her MD Primary Care Provider [phone] Encounter Details Date Type Department Care Team (Late st Contact Info) Description 08/16/2014 Orders Only Functional [facility] at [facility] [address] [place] [address] Khari Martínez MD Social History Tobacco Use [...] filedocumented in this encounter Care Teams Power Reactor Supervisor Relationship Specialty Start Date End Date Ana Her MD [facility] [address] [facility] [address] [place] [address] PCP - General 07/29/13 documented as of this encounter
--- OUTSIDE RECORDS SUMMARY | 2024-06-15 10:51 | XMS_ITS | Encounter Summary ---
Author Organization [facility] [address] Care Team Providers Care Refined Syrup Operator Name Role Phone Ana Her MD Primary Care Provider [phone] Encounter Details Date Type Department Care Team (Latest Contact Info) Description 02/25/2017 2:59 PM EDT - 02/25/2017 11:59 PM EDT Hospital [place] [phone] Enzo Burkett MD Abnormal finding on breast [...] associated with invasive carcinoma. Enzo Burkett MD [facility] MAMMO ORDERABLES * Surgical Pathology Report (02/25/2017 3:01 PM EDT) Final Diagnosis [id number] ? Location: 3L The signing pathologist has [...] FISH. ??Direct analysis was performed using the [employer] Kit. ??Slide adequacy and signal enumeration were [...] factor receptor 2 testing in breast cancer: [place] Society of Clinical On[employer]/College of [place] [employer]ologists clinical practice guideline update. J Clin Oncol. 2013 Nov . Reviewed by: Kyara Logan MD Aircraft Mechanic Armament, Molecular Pathology _ Electronically signed by: ??Epifanio Serra MD Verified: ??03/04/2017 ?Pathologist Performed at: ??-[facility] Dept. of Pathology, [place], [place] ? Addendum ADDENDUM DISCUSSION Immunohistochemist ry Studies Specimen: Left breast, core needle biopsy (A1) ER immunoreactivity: Positive ( ??>90% cancer cells with immunostaining) Stain intensity: Strong . ADDENDUM DISCUSSION OR immunoreactivity: Positive ( ??>90% cancer cells with [...] The assays were performed according to the uppers edge burnisher ' s instructions using Anti-ER (SP1) and Anti-OR (16) antibodies. Electronically signed by: ??Epifanio Serra MD Verified: ??02/27/2017 ?Pathologist Performed at: ??-[facility] Dept. 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 of Pathology, [place], [place] DISCUSSION Studies for ER, OR, and HER2 have been ordered; results will [...] g: (T4) ??elian 03/04/2017 2:01 PM EDT [facility] BREAST STRUCTURE / Unknown 02/25/2017 3:01 PM EDT 02/25/2017 3:01 PM EDT Enzo Burkett MD PATHOLOGY/CYTOLOGY O RDERABLES [facility] [place] [address] documented in this encounter Visit Diagnoses Diagnosis Abnormal finding on breast imaging Other (abnormal) findings on radiological examination of breast documented in this encounter Care Teams Refined Syrup Operator Relationship Specialty Start Date End Date Ana Her MD [address] [place] [address] PCP - General 07/29/13 documented as of this encounter
--- OUTSIDE RECORDS SUMMARY | 2024-06-15 10:51 | XMS_ITS | Encounter Summary ---
Author Organization [facility] Address [facility] [place] [address] Care Team Providers Care Cotton Tipper Name Role Phone Ana Her MD Primary Care Provider [phone] Encounter Details Date Type Department Care Team (Latest Contact Info) Description 02/12/2017 - 02/12/2017 11:59 PM EDT Hospital Encounter Radiology Library at [facility] [place] [address] Maryam Yee MD [facility] [place] [address] Screening breast examination Discharge Disposition: Home Social [...] Only Mammo (02/12/2017 12:00 AM EDT) Narrative [facility] - 02/19/2017 1:47 PM EDT This exam is for storage only and is auto-finalizing. Maryam Yee MD IMG FILM LIBRARY O RDERABLES Performing Organization Address City/State/[facility] Co de Phone Number [place], [place] documented in this encounter Visit Diagnoses Diagnosis Screening breast examination Other screening breast examination documented in this encounter Care Teams Cotton Tipper Relationship Specialty Start Date End Date Ana Her MD [address] [place] [address] PCP - General 07/29/13 documented as of this encounter
--- OUTSIDE RECORDS SUMMARY | 2024-06-15 10:51 | XMS_ITS | Encounter Summary ---
Author Organization [facility] Address [facility] [place] [address] Care Team Providers Care Dance Instructor Name Role Phone Ana Her MD Primary Care Provider [phone] Encounter Details Date Type Department Care Team (Latest Contact Info) Description 02/23/2017 3:50 PM EDT - 02/23/2017 11:59 PM EDT Hospital Encounter Radiology Library at [facility] [place] [phone] Jackie Cisneros APRN [address] [place] [address] Left breast mass Discharge Disposition: Home Social [...] recommended. Please note: The interpretation of the [facility] Breast Imaging Radiologist subspecialist may differ from the original radiologists interpretation. This is usually not due to a deficiency of the original interpreting radiologist, rather due to the greater skill level afforded by sub-specialization in the field and/or reasonable variations in interpretations. If you have a concern regarding the D-H interpretation you may contact the [facility] Breast Commercial Loan Analyst Office at . I have personally reviewed [...] the care of this patient. STUDIES FROM: [facility] DATES: Screening mammogram 02/12/2017, diagnostic mammogram [...] alter the care of thispatient. STUDIES FROM: [facility] DATES: Screening mammogram 02/12/2017, diagnostic mammogram [...] recommended. Please note: The interpretation of the [facility] BreastImaging Radiologist subspecialist may differ from the original radiologists interpretation. This is usually not due to a deficiency of the original interpreting radiologist, rather due to the greater skill level affordedby sub-specialization in the field and/or reasonable variations ininterpretations. If you have a concern regarding the D-H interpretation [facility] may [facility] Breast Commercial Loan Analyst Office at . I have personally reviewed the image(s) and the residents interpretationand agree with the findings, ROBERT THOMPSON at 02/24/2017 8:41 AM 8:41 AM Jackie Cisneros WENDY IMG OUTSIDE INTERPRE TATION ORDERABLES documented in this encounter Visit Diagnoses Diagnosis Left breast mass Lump or mass in breast documented in this encounter Care Teams Dance Instructor Relationship Specialty Start Date End Date Ana Her MD [address] [place] [address] PCP - General 07/29/13 documented as of this encounter
--- OUTSIDE RECORDS SUMMARY | 2024-06-15 10:51 | XMS_ITS | Encounter Summary ---
[place] [address] Care Team Providers Care Wireless Watcher Name Role Phone Ana Her MD Primary Care Provider [phone] Encounter Details Date Type Department Care Team (Latest Contact Info) Description 03/30/2017 7:27 AM EST - 03/30/2017 1:37 PM EST Hospital Encounter [place] [phone] Brant Chen MD [facility] [address] Discharge Disposition: Home Social History Tobacco Use [...] 24 hours Activity as tolerated Call [phone] with any questions Do not soak incision [...] Alma Delia had a bone scan in [place] which was read as possible metastasis in the left tibia. Of note- she fractured this area recently. She has recovered well. ?? PMH HNT NIDDM not on meds Spinal stenosis Fractured left tibial plateau December, GERD ?? FH: Maternal first cousin with breast cancer Brother with rectal cancer Sister with PE ? SH: lives alone. Has good support from sisters who live in [place]. Non smoker. Has a son who lives [...] for surgery. Alma Delia has watched the ARNLUFO video and has a good understanding of [...] Chen MD - 03/30/2017 12:27 PM EST [facility] Operative Note Patient Name: Digna Olson : [id number] MR#: [id number] Case Date: 03/30/2017 Surgeon: Surgeon(s) and Role: [...] [place] [id number]. Remaining count within the axilla was 1982. [...] PM EST 03/30/2017 12:09 PM EST Narrative [facility] - 03/30/2017 12:09 PM EST Specimen requisition ordered. ??Separate Pathology report to follow Brant Chen MD PATHOLOGY/CYTOLOGY ORDERABLES [facility] [place] [address] * Specimen to Pathology (surgical or derm) (03/30/2017 12:08 PM EST) AP Specimen 03/30/2017 12:0 8 PM EST 03/30/2017 12:08 PM EST Narrative [facility] - 03/30/2017 12:08 PM EST Specimen requisition ordered. ??Separate Pathology report to follow Brant Chen MD PATHOLOGY/CYTOLOGY ORDERABLES Performing Organization Address [facility] [place] [address] * Specimen to Pathology (surgical or derm) (03/30/2017 12:00 PM EST) AP Specimen 03/30/2017 12:0 0 PM EST 03/30/2017 12:00 PM EST Narrative [facility] - 03/30/2017 12:00 PM EST Specimen requisition ordered. ??Separate Pathology report to follow Brant Chen MD PATHOLOGY/CYTOLOGY ORDERABLES Performing Organization Address [facility] Co de Phone Number [place] [phone] * Specimen to Pathology (surgical or derm) (03/30/2017 11:51 AM EST) AP Specimen 03/30/2017 11:5 1 AM EST 03/30/2017 11:51 AM EST Narrative [facility] - 03/30/2017 11:51 AM EST Specimen requisition ordered. ??Separate Pathology report to follow Brant Chen MD PATHOLOGY/CYTOLOGY ORDERABLES Performing Organization Address [facility] [place] [address] * Surgical Pathology Report (03/30/2017 11:50 AM EST) Final Diagnosis [id number] ? Location: [facility]; A The signing pathologist has (i) examined the relevant preparation(s) for the specimen(s) and (ii) rendered or confirmed the diagnosis(es). . ?Surgical Pathology DIAGNOSIS A,B - See Synoptic C - Left breast, Deep/lateral margin re-excision - ?Benign fatty breast tissue. D - Left breast, Superficial margin re-excision - ?Benign fatty breast tissue. See Note Note - [place] ink (indicating additional cranial margin) is also present on this superficial margin re-excision. ---- Specimen Parts: ?? A - Left axilliary sentinel node B - Left breast partial mastectomy Specimen ? Procedure: ??Excision with image-guided localization ? Lymph Node Sampling: ?? Criders lymph node(s) ? Specimen Laterality: ?? Left [...] not present in specimen Lymph Nodes ? Criders Lymph Nodes: ?? Criders lymph node biopsy performed ? Number of Criders Nodes Examined: ?3 ? Number of Lymph [...] Chávez DO Verified: ??04/01/2017 ?Pathologist Performed at: ??-[facility] Dept. of Pathology, [place], [place] CLINICAL INFORMATION Specimen Submitted: A - [...] and there are ??no close margins. per [facility] Radiology . Specimen Description: According [...] 0.8 x 0.4 x 0.4 cm. Color: Mart and yellow. Consistency: Soft. Location: Slices III and IV. Nearest Margin: 0.6 cm to the cranial margin. Other Margins: 0.8 cm to the deep margin, 1.0 cm to the superficial margin, ? > 2 cm from all other margins. OTHER Parenchyma: Predominately fatty with scant fibrous tissue. Wire/Clip: Biopsy marker clip identified within slice IV. SECTIONS/PROCESSI NG: (1) circulation sales representative slice I, lateral margin; (2) slice III, lesion to cranial margin; (3-5) remainder of slice III; (6) slice IV, lesion to cranial margin (clip); (7-8) remainder of slice IV; (9) circulation sales representative slice V; (10) circulation sales representative slice X, medial margin. (R10) [...] sectioned. (T3) ??sns 04/01/2017 9:38 AM EST [facility] BREAST STRUCTURE / Unknown 03/30/2017 11:50 AM EST 03/30/2017 11:50 AM EST BREAST STRUCTURE / Unknown 03/30/2017 11:50 AM EST 03/30/2017 11:50 AM EST BREAST STRUCTURE / Unknown 03/30/2017 11:50 AM EST 03/30/2017 11:50 AM EST BREAST STRUCTURE / Unknown 03/30/2017 11:50 AM EST 03/30/2017 11:50 AM EST Brant Chen MD PATHOLOGY/CYTOLOGY ORDERABLES [facility] [place] [address] * Mammo Direct Digital Left (03/30/2017 9:15 [...] Routine documented in this encounter Care Teams Wireless Watcher Relationship Specialty Start Date End Date Ana Her MD [address] [place] [address] PCP - General 07/29/13 documented as of this encounter
--- OUTSIDE RECORDS SUMMARY | 2024-06-15 10:51 | XMS_ITS | Encounter Summary ---
[place] [address] Care Team Providers Care Digital Controls Technical Officer Name Role Phone Ana Her MD Primary Care Provider [phone] Encounter Details Date Type Department Care Team (Late st Contact Info) Description 02/27/2017 Telephone Hematology [place] [phone] Argentina Sanchez RN Social History Tobacco Use [...] a 71 y.o. 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 Alma Delia sounds positive and [...] her review (a link to the [facility] Early Stage Breast Cancer program). The [...] filedocumented in this encounter Care Teams Digital Controls Technical Officer Relationship Specialty Start Date End Date Ana Her MD [address] [place] [address] PCP - General 07/29/13 documented as of this encounter
--- OUTSIDE RECORDS SUMMARY | 2024-06-15 10:51 | XMS_ITS | Encounter Summary ---
Author Organization Formerly [facility] [place] [address] Care Team Providers Care Charge Entry Clerk Name Role Phone Ana Her MD Primary Care Provider [phone] Encounter Details Date Type Department Care Team (Late st Contact Info) Description 03/30/2017 9:30 AM EST - 03/30/2017 11:28 AM EST [place] [phone] Brant Chen MD [facility] [place] [address] MASTECTOMY PARTIAL (WRVU 10.13) Social History Tobacco [...] shower 24 hours Activity as tolerated Call [phone] with any questions Do not soak incision [...] 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 She has no known breast masses, no adenopathy, no nipple discharge. ?? Alma Delia had a bone scan in [place] which was read as possible metastasis in the left tibia. Of note- she fractured this area recently. She has recovered well. ?? PMH HNT NIDDM not on meds Spinal stenosis Fractured left tibial plateau [place], 2017 GERD ?? FH: Maternal first cousin with breast cancer Brother with rectal cancer Sister with PE ? SH: lives alone. Has good support from sisters who live in [place]. Non smoker. Has a son who lives [...] Chen MD - 03/30/2017 12:27 PM EST [facility] Operative Note Patient Name: Digna Olson : [id number] MR#: [id number] Case Date: 03/30/2017 Surgeon: Surgeon(s) and Role: [...] [place] [id number]. Remaining count within the axilla was 1982. [...] PM EST 03/30/2017 12:[address] [facility] - 03/30/2017 12:09 PM EST Specimen requisition ordered. ??Separate Pathology report to follow Brant Chen MD PATHOLOGY/CYTOLOGY ORDERABLES [facility] [place] [address] * Specimen to Pathology (surgical or derm) (03/30/2017 12:08 PM EST) AP Specimen 03/30/2017 12:0 8 PM EST 03/30/2017 12:[address] [facility] - 03/30/2017 12:08 PM EST Specimen requisition ordered. ??Separate Pathology report to follow Brant Chen MD PATHOLOGY/CYTOLOGY ORDERABLES Performing Organization Address [facility] Co de Phone Number [facility] [place] [address] * Specimen to Pathology (surgical or derm) (03/30/2017 12:00 PM EST) AP Specimen 03/30/2017 12:0 0 PM EST 03/30/2017 12:[address] [facility] - 03/30/2017 12:00 PM EST Specimen requisition ordered. ??Separate Pathology report to follow Brant Chne MD PATHOLOGY/CYTOLOGY ORDERABLES Performing Organization Address [facility] [place] [address] * Specimen to Pathology (surgical or derm) (03/30/2017 11:51 AM EST) AP Specimen 03/30/2017 11:5 1 AM EST 03/30/2017 11:[address] [facility] - 03/30/2017 11:51 AM EST Specimen requisition ordered. ??Separate Pathology report to follow Brant Chen MD PATHOLOGY/CYTOLOGY ORDERABLES Performing Organization Address [facility] Co de Phone Number [facility] [place] [phone] * Surgical Pathology Report (03/30/2017 11:50 AM EST) Final Diagnosis [id number] ? Location: [facility]; [facility]; A The signing pathologist has (i) examined the relevant preparation(s) for the specimen(s) and (ii) rendered or confirmed the diagnosis(es). . ?Surgical Pathology DIAGNOSIS A,B - See Synoptic C - Left breast, Deep/lateral margin re-excision - ?Benign fatty breast tissue. D - Left breast, Superficial margin re-excision - ?Benign fatty breast tissue. See Note Note - [place] ink (indicating additional cranial margin) is also present on this superficial margin re-excision. ---- Specimen Parts: ?? A - Left axilliary sentinel node B - Left breast partial mastectomy Specimen ? Procedure: ??Excision with image-guided localization ? Lymph Node Sampling: ?? [place] lymph node(s) ? Specimen Laterality: ?? Left [...] not present in specimen Lymph Nodes ? [place] Lymph Nodes: ?? [place] lymph node biopsy performed ? Number of [place] Nodes Examined: ?3 ? Number of Lymph [...] Chávez DO Verified: ??04/01/2017 ?Pathologist Performed at: ??-[facility] Dept. of Pathology, [place], [place] CLINICAL INFORMATION Specimen Submitted: A - [...] there are ??no close margins. per [facility] Radiology . Specimen Description: According to the established protocol the ink designations are red (medial), yellow (lateral), orange (cranial), green (caudal), black (deep) and blue (superficial). Tissue Sections: The specimen is serially sectioned perpendicular to the long axis from lateral to medial into X slices, each averaging 0.45 cm in thickness. LESION Description: Biopsy site. Size: 0.8 x 0.4 x 0.4 cm. Color: [place] and yellow. Consistency: Soft. Location: Slices III and IV. Nearest Margin: 0.6 cm to the cranial margin. Other Margins: 0.8 cm to the deep margin, 1.0 cm to the superficial margin, ? > 2 cm from all other margins. OTHER Parenchyma: Predominately fatty with scant fibrous tissue. Wire/Clip: Biopsy marker clip identified within slice IV. SECTIONS/PROCESSI NG: (1) community health representative slice I, lateral margin; (2) slice III, lesion to cranial margin; (3-5) remainder of slice III; (6) slice IV, lesion to cranial margin (clip); (7-8) remainder of slice IV; (9) community health representative slice V; (10) community health representative slice X, medial margin. (R10) Ischemic [...] sectioned. (T3) ??sns 04/01/2017 9:[address] [facility] BREAST STRUCTURE / Unknown 03/30/2017 11:50 AM EST 03/30/2017 11:50 AM EST BREAST STRUCTURE / Unknown 03/30/2017 11:50 AM EST 03/30/2017 11:50 AM EST BREAST STRUCTURE / Unknown 03/30/2017 11:50 AM EST 03/30/2017 11:50 AM EST BREAST STRUCTURE / Unknown 03/30/2017 11:50 AM EST 03/30/2017 11:50 AM EST Brant Chen MD PATHOLOGY/CYTOLOGY ORDERABLES [facility] [place] [address] * Mammo Direct Digital Left (03/30/2017 9:15 [...] Routine documented in this encounter Care Teams Charge Entry Clerk Relationship Specialty Start Date End Date Ana Her MD [address] [place] [address] PCP - General 07/29/13 documented as of this encounter
--- OUTSIDE RECORDS SUMMARY | 2024-06-15 10:51 | XMS_ITS | Encounter Summary ---
Author Organization [facility] [place] [address] Care Team Providers Care Sampling Theory Teacher Name Role Phone Ana Her MD Primary Care Provider [phone] Encounter Details Date Type Department Care Team (Late st Contact Info) Description 02/27/2017 Orders [place] [address] Malika Chen MD [facility] [place] [address] Malignant neoplasm of left breast in female, [...] or in patients with acute kidney failure. [email or web address] [email or web address] Blood specimen (specimen) 03/03/2017 7:50 AM EDT 03/03/2017 8:03 AM EDT Narrative Resulting Agency Comment Spec In Lab Malika Chen MD CHEMISTRY ORDERABLE S [facility] [place] [address] documented in this encounter Visit Diagnoses Diagnosis Malignant neoplasm of left breast in female, estrogen receptor positive, unspecified site of breast documented in this encounter Care Teams Sampling Theory Teacher Relationship Specialty Start Date End Date Ana Her MD [address] [facility] [address] [place] [address] PCP - General 07/29/13 documented as of this encounter
--- OUTSIDE RECORDS SUMMARY | 2024-06-15 10:51 | XMS_ITS | Encounter Summary ---
Author Organization [place] [address] Care Team Providers Care Lock Assembler Name Role Phone Ana Her MD Primary Care Provider [phone] Encounter Details Date Type Department Care Team (Late st Contact Info) Description 03/03/2017 [place] [address] January Ward MSW Social History Tobacco Use Types Packs/Day Years Used Date Smoking Tobacco: Never Smokeless Tobacco: Never Sex and Gender Information Value Date Recorded Sex Assigned at Not on file Gender Identity Not on file Sexual Orientation Not on file documented as of this encounter Progress Notes * January Ward MSW - 03/03/2017 12:56 PM EDT OFFICE OF CARE MANAGEMENT/CONTINUING [place] Reason for referral: Digna Olson is a 71 year old, female who was seen in the multidisciplinarybreast care clinic for a surgical consult as she was recently diagnosed with ER/DC+, left breast, invasive mucinous carcinoma. After meeting with Dr. Chen, pt has decided to have a lumpectomy/SLNB. If pt needs radiation therapy, she will receive it at the [facility]. [facility] met with pt to complete a psychosocial assessment and to explain my role in the breast program. Pt was encouraged to contact me if she has any questions or concerns. Living arrangements/social supports: Pt lives alone in [place], [place]. She has support from her family and is accompanied to today's appt by her sisters who live in [place]. Employment/Insurance/Finances: Pt is retired and receives Social Security Senior Living Benefits. Pt has Medicare A and B [...] Antonia Oliva is the SW for the [facility]. Plan: [facility] will continue to follow pt to assess and assist with their psychosocial needs. DELONTE [facility]/[place] [phone] Pager #[phone] documented in this encounter Plan of Treatment Not on file documented as of this encounter Visit Diagnoses Not on filedocumented in this encounter Care Teams Lock Assembler Relationship Specialty Start Date End Date Ana Her MD [address] [place] [address] PCP - General 07/29/13 documented as of this encounter
--- OUTSIDE RECORDS SUMMARY | 2024-06-15 10:51 | XMS_ITS | Encounter Summary ---
Author Organization [facility] Address [address] [place] [address] Care Team Providers Care Roller Leveler Name Role Phone Unknown, Provider MD Primary Care Provider Unava ilable Encounter Details Date Type Department Care Team (Late st Contact Info) Description 08/12/2021 Lab Requisition [facility] Pathology & Laboratory Medicine - [facility] [address] [place] [address] Outr Resulting Lab, Provider Social History Tobacco [...] Priority Date/Time Associated Diagnosis Comments ZZCOVID-19 TEST [facility] PCR Today 08/12/2021 15:00 EDT COVID-19 TESTING Routine 08/12/2021 15:0 0 EDT documented in this encounter Results * COVID-19 TEST [facility] PCR (08/12/2021 15:00 EDT) Swab 08/12/2021 15:0 0 EDT 08/13/2021 16:56 EDT us Provider Outr Resulting Lab MICROBIOLOGY - GENER AL ORDERABLES Final Result [facility] [address] [place] [address] * COVID-19 TESTING (08/12/2021 15:00 EDT) COVID-19 rt-PCR Result Negative Negative 08/14/2021 11:53 EDT [facility] Comment: This test has not [...] was performed using the palomo SARS-CoV-2 assay ([employer] on the Palomo 6800 System Performing Lab Palomo [address] [facility] 08/14/2021 11:53 EDT [facility] Swab 08/12/2021 15:0 0 EDT 08/13/2021 16:56 EDT us Provider Outr Resulting Lab MICROBIOLOGY - GENER AL ORDERABLES Final Result [facility] [address] [place] [address] documented in this encounter Visit Diagnoses Not on filedocumented in this encounter Care Teams Roller Leveler Relationship Specialty Start Date End Date Unknown, Provider, PCP - General 01/13/14 documented as of this encounter
--- OUTSIDE RECORDS SUMMARY | 2024-06-15 10:51 | XMS_ITS | Encounter Summary ---
[place] [address] Care Team Providers Care Commercial Shrimping Captain Name Role Phone Ana Her MD Primary Care Provider [phone] Reason for Visit * Reason Onset Date Comments Referral 07/29/2013 Encounter Details Date Type Department Care Team (Late st Contact Info) Description 07/29/2013 Telephone [place] [phone] Sophia Palacios Referral Social History Tobacco Use [...] filedocumented in this encounter Care Teams Commercial Shrimping Captain Relationship Specialty Start Date End Date Ana Her MD [address] [facility] 1 [place] [address] PCP - General 07/29/13 documented as of this encounter
--- OUTSIDE RECORDS SUMMARY | 2024-06-15 10:51 | XMS_ITS | Encounter Summary ---
Author Organization [facility] Address [facility] [place] [address] Care Team Providers Care Nailer Operator Name Role Phone Unavailable Primary Care Provider Unavailabl e Encounter Details Date Type Department Care Team (Latest Contact Info) Description 11/12/2007 - 11/12/2007 11:59 PM EDT Hospital Encounter Radiology Library at [facility] [place] [address] Jackie Cisneros APRN [facility] [place] [address] Discharge Disposition: Home Social History Tobacco Use [...]
--- OUTSIDE RECORDS SUMMARY | 2024-06-15 10:51 | XMS_ITS | Encounter Summary ---
Author Organization [facility] Address [address] [place] [address] Care Team Providers Care Muffler Tender Name Role Phone Unknown, Provider MD Primary Care Provider Unava ilable Encounter Details Date Type Department Care Team (Late st Contact Info) Description 10/26/2022 Lab Requisition [facility] Pathology & Laboratory Medicine - [facility] [address] [place] [address] Outr Resulting Lab, Provider Social History Tobacco [...] and Giardia Antigen Neg 13:48 EDT [facility] Feces SPECIMEN FROM RECTUM / Unknown 10/25/2022 15:00 EDT 10/26/2022 15:25 EDT us Provider Outr Resulting Lab MICROBIOLOGY - GENER AL ORDERABLES Final Result [facility] [address] [place] [address] * FECAL BACTERIAL PATHOGENS BY PCR (10/25/2022 15:00 EDT) Salmonella PCR Negative Negative 10/26/2022 19:17 EDT [facility] Shigella/Enteroin vasive E. coli Negative Negative 10/26/2022 19:17 EDT [facility] HN LAB CAMPYLOBACTER PCR Negative Negative 10/26/2022 19:17 EDT [facility] Shiga Toxin PCR Negative Negative 19:17 EDT [facility] Feces SPECIMEN FROM RECTUM / Unknown 10/25/2022 15:00 EDT 10/26/2022 15:25 EDT us Provider Outr Resulting Lab MICROBIOLOGY - GENER AL ORDERABLES Final Result Performing Organization Address [facility] Co de Phone Number [facility] [address] [place] [address] * OVA/PARASITE EXAM (10/25/2022 15:00 EDT) Parasite No ova and parasites seen. 10/28/2022 15:08 EDT [facility] Feces SPECIMEN FROM RECTUM / Unknown 10/25/2022 15:00 EDT 10/26/2022 15:25 EDT Narrative [facility] - 10/28/2022 15:08 EDT (If Cryptosporidium, Cyclospora, or Microsporidium are suspected, specific tests must be requested.) Single negative specimen does not rule out the possibility of a parasitic infection. us Provider Outr Resulting Lab MICROBIOLOGY - GENER AL ORDERABLES Final Result Performing Organization Address City/[facility]/ZIP Co de Phone Number [facility] [address] [place] [address] documented in this encounter Visit Diagnoses Not on filedocumented in this encounter Care Teams Muffler Tender Relationship Specialty Start Date End Date Unknown, Provider, PCP - General 9/12/14 documented as of this encounter
--- OUTSIDE RECORDS SUMMARY | 2024-06-15 10:51 | XMS_ITS | Encounter Summary ---
Author Organization [facility] Address [facility] [place] [address] Care Team Providers Care Resin Shaver Name Role Phone Ana Her MD Primary Care Provider [phone] Encounter Details Date Type Department Care Team (Latest Contact Info) Description 04/24/2014 - 04/24/2014 11:59 PM EST Hospital Encounter Radiology Library at [facility] [place] [address] Maryam Yee MD [facility] [place] [address] Screening breast examination Discharge Disposition: Home Social [...] Only Mammo (04/24/2014 12:00 AM EST) Narrative [facility] - 02/19/2017 1:46 PM EDT This exam is for storage only and is auto-finalizing. Maryam Yee MD IMG FILM LIBRARY O RDERABLES [place], [place] documented in this encounter Visit Diagnoses Diagnosis Screening breast examination Other screening breast examination documented in this encounter Care Teams Resin Shaver Relationship Specialty Start Date End Date Ana Her MD [address] [facility] 1 [place] [address] PCP - General 07/29/13 documented as of this encounter
--- OUTSIDE RECORDS SUMMARY | 2024-06-15 10:51 | XMS_ITS | Encounter Summary ---
Author Organization [facility] Address [facility] [place] [address] Care Team Providers Care Poultry Raiser Name Role Phone Unavailable Primary Care Provider Unavailabl e Encounter Details Date Type Department Care Team (Latest Contact Info) Description 03/19/2006 - 03/19/2006 11:59 PM EST Hospital Encounter Radiology Library at [facility] [place] [address] Jackie Cisneros APRN [facility] [place] [address] Discharge Disposition: Home Social History Tobacco Use [...]
--- OUTSIDE RECORDS SUMMARY | 2024-06-15 10:51 | XMS_ITS | Encounter Summary ---
Author Organization [facility] [place] [address] Care Team Providers Care Paring Machine Operator Name Role Phone Ana Her MD Primary Care Provider [phone] Encounter Details Date Type Department Care Team (Late st Contact Info) Description 03/19/2017 Telephone [place] [address] Malika Chen MD [facility] DR GENER[place] [address] Social History Tobacco Use Types Packs/Day Years [...] no unexpected bleeding. Surgery is scheduled in [facility]. documented in this encounter Plan of Treatment Not on file documented as of this encounter Visit Diagnoses Not on filedocumented in this encounter Care Teams Paring Machine Operator Relationship Specialty Start Date End Date Ana Her MD [address] [facility] 1 [place] [address] PCP - General 07/29/13 documented as of this encounter
--- OUTSIDE RECORDS SUMMARY | 2024-06-15 10:51 | XMS_ITS | Encounter Summary ---
Author Organization [facility] [place] [address] Care Team Providers Care Leather Coverer Name Role Phone Ana Her MD Primary Care Provider [phone] Encounter Details Date Type Department Care Team (Late st Contact Info) Description 03/04/2017 Orders [place] [address] Malika Chen MD [facility] [place] [address] Malignant neoplasm of upper-outer quadrant of left [...] MD IMG MAMMO ORDERABLE S * Mammo [place] Node Injection (03/30/2017 9:01 AM EST) Anatomical [...] positive documented in this encounter Care Teams Leather Coverer Relationship Specialty Start Date End Date Ana Her MD [address] [place] [address] PCP - General 07/29/13 documented as of this encounter
--- OUTSIDE RECORDS SUMMARY | 2024-06-15 10:51 | XMS_ITS | Encounter Summary ---
Author Organization [facility] Address [facility] [address] Care Team Providers Care Scoop Operator Name Role Phone Unavailable Primary Care Provider Unavailabl e Encounter Details Date Type Department Care Team (Latest Contact Info) Description 12/08/2008 - 12/08/2008 11:59 PM EDT Hospital Encounter Radiology Library [place] [facility] [place] [address] Jackie Cisneros APRN [facility] [place] [address] [place] [address] Discharge Disposition: Home Social History Tobacco Use [...]
--- OUTSIDE RECORDS SUMMARY | 2024-06-15 10:51 | XMS_ITS | Encounter Summary ---
[place] [address] Care Team Providers Care Farm Crops Teacher Name Role Phone Ana Her MD Primary Care Provider [phone] Reason for Visit * Reason Comments Low Back Pain Encounter Details Date Type Department Care Team (Late st Contact Info) Description 08/30/2014 8:35 AM EDT Office [place] [phone] Michelle Hurtado APRN [facility] [place] [address] Neurogenic claudication due to lumbar spinal stenosis [...] this encounter Progress Notes * Michelle Hurtado, LICENSED FUNERAL DIRECTOR AND EMBALMER - 08/30/2014 9:37 AM EDT CHIEF COMPLAINT: [...] activity. She recently visited her daughter in [place] and is frustrated she was not able [...] Treatments to date have included: LESIs in [place] at L4-5 in 2013-no relief, Flexeril-helpful, physical [...] care of this patient. Michelle Hurtado MS, LICENSED FUNERAL DIRECTOR AND EMBALMER, SULFONATION EQUIPMENT OPERATOR-C [facility] documented in this encounter Plan of Treatment Not on file documented as of this encounter Visit Diagnoses Diagnosis Neurogenic claudication due to lumbar spinal stenosis Spinal stenosis, lumbar region, with neurogenic claudication documented in this encounter Care Teams Farm Crops Teacher Relationship Specialty Start Date End Date Ana Her MD [address] [place] [address] PCP - General 07/29/13 documented as of this encounter
--- OUTSIDE RECORDS SUMMARY | 2024-06-15 10:51 | XMS_ITS | Encounter Summary ---
[place] [address] Care Team Providers Care Cattle Examiner Name Role Phone Ana Her MD Primary Care Provider [phone] Encounter Details Date Type Department Care Team (Late st Contact Info) Description 03/30/2017 11:19 AM EST Anesthesia [place] [address] Bridgette Mclaughlin MD Collins, Sarah J, WOOD SCALER [address] [place] [address] Anesthesia Record Procedure Summary Procedure Name Responsible [...] 0815; median cubital vein (antecubital fossa), right; trke-[id number]-cnquyq catheter system; 20 gauge, 1 in length; [...] Bridgette Mclaughlin - 03/30/2017 2:13 PM EST [facility] Department of Anesthesiology Post-procedure Note Patient: Digna Olson Procedure Summary Date Anesthesia Start Anesthesia Stop Room / Location 03/30/17 1119 1239 [facility] OR 24 / MH MAIN [...] All Anesthesia Providers: Anesthesiologist: Bridgette Mclaughlin MD WOOD SCALER: Laura Koo CRNA Most Recent Vitals: 03/30/17 [...] risks discussed with patient. Plan discussed with WOOD SCALER. [facility] Staff Note documented in this encounter [...] r documented in this encounter Care Teams Cattle Examiner Relationship Specialty Start Date End Date Ana Her MD [facility] [address] [place] [address] PCP - General 07/29/13 documented as of this encounter
--- OUTSIDE RECORDS SUMMARY | 2024-06-15 10:51 | XMS_ITS | Encounter Summary ---
Author Organization [facility] [place] [address] Care Team Providers Care Associate Director Of Sales Name Role Phone Ana Her MD Primary Care Provider [phone] Encounter Details Date Type Department Care Team (Latest Contact Info) Description 02/25/2017 1:36 PM EDT - 02/25/2017 2:58 PM EDT Hospital Encounter [place] [id number] Maryam Yee MD [facility] [place] [address] Abnormal mammogram Discharge Disposition: Home Social History [...] unspecified documented in this encounter Care Teams Associate Director Of Sales Relationship Specialty Start Date End Date Ana Her MD [address] [place] [address] [address] [place] [address] PCP - General 07/29/13 documented as of this encounter
--- OUTSIDE RECORDS SUMMARY | 2024-06-15 10:51 | XMS_ITS | Encounter Summary ---
Author Organization [facility] [place] [address] Care Team Providers Care Picking Supervisor Name Role Phone Ana Her MD Primary Care Provider [phone] Encounter Details Date Type Department Care Team (Latest Contact Info) Description 02/17/2017 12:15 AM EDT - 02/17/2017 11:59 PM EDT Hospital Encounter Radiology Library at [facility] [place] [address] Maryam Yee MD [facility] [place] [address] Screening breast examination Discharge Disposition: Home Social [...] Mammo (02/17/2017 12:15 AM EDT) Narrative [facility] - 02/19/2017 2:01 PM EDT This exam is for storage only and is auto-finalizing. Maryam Yee MD IMG FILM LIBRARY O RDERABLES [place], [place] documented in this encounter Visit Diagnoses Diagnosis Screening breast examination Other screening breast examination documented in this encounter Care Teams Picking Supervisor Relationship Specialty Start Date End Date Ana Her MD [address] [place] [address] PCP - General 07/29/13 documented as of this encounter
--- OUTSIDE RECORDS SUMMARY | 2024-06-15 10:51 | XMS_ITS | Encounter Summary ---
Author Organization [facility] Address [facility] [place] [address] Care Team Providers Care Hide Grader Name Role Phone Ana eHr MD Primary Care Provider [phone] Encounter Details Date Type Department Care Team (Late st Contact Info) Description 09/13/2015 Interpretation Only Radiology [address] [place] [place] [address] Unknown None Social History Tobacco Use Types [...] 6:56 AM EDT APD Historical Result Principal Rotary Peel Oven Tender: ??MAE ??ESCHBACH IMAGE-INTENSIFIER FILMS: INDICATION: ??Right L4 foraminotomy. FINDINGS: A total of 5.8 seconds of fluoro time was utilized by Geraldine Claros MD. ??Estimated dose is 5.96 mGy. ??Two image-intensifier films record the event. ??They show the lumbosacral junction in the lateral projection with a surgical instrument indicating the level of L4. ??No Radiologist was present for this exam. Mae Shelley DO TOBIN/mn [id number] Procedure Note Unknown - 11/01/2018 APD Historical Result Principal Rotary Peel Oven Tender: MAE SHELLEY IMAGE-INTENSIFIER FILMS: INDICATION: Right L4 foraminotomy. FINDINGS: A total of 5.8 seconds of fluoro time was utilized by Geraldine Claros MD. Estimated dose is 5.96 mGy. Two image-intensifier films record the event. They show thelumbosacral junction in the lateral projection with a surgical instrument indicating the level of L4.No Radiologist was present for this exam. Mae Shelley DO TOBIN/mn [id number] Unknown IMG FLUORO ORDERABLE S documented in this encounter Visit Diagnoses Not on filedocumented in this encounter Care Teams Hide Grader Relationship Specialty Start Date End Date Ana Her MD [address] [place] [address] PCP - General 07/29/13 documented as of this encounter
--- OUTSIDE RECORDS SUMMARY | 2024-06-15 10:51 | XMS_ITS | Encounter Summary ---
Author Organization [facility] Address [facility] [place] [address] Care Team Providers Care Decision Support Analyst Name Role Phone Ana Her MD Primary Care Provider [phone] Encounter Details Date Type Department Care Team (Latest Contact Info) Description 02/17/2017 - 02/17/2017 12:14 AM EDT Hospital Encounter Radiology Library at [facility] [place] [address] Maryam Yee MD [facility] [place] [address] Screening breast examination Discharge Disposition: Home Social [...] Only Mammo (02/17/2017 12:00 AM EDT) Narrative [facility] - 02/19/2017 1:59 PM EDT This exam is for storage only and is auto-finalizing. Maryam Yee MD IMG FILM LIBRARY O RDERABLES Performing Organization Address City/State/[facility] Co de Phone Number [place], [place] documented in this encounter Visit Diagnoses Diagnosis Screening breast examination Other screening breast examination documented in this encounter Care Teams Decision Support Analyst Relationship Specialty Start Date End Date Ana Her MD [address] [place] [address] PCP - General 07/29/13 documented as of this encounter
--- OUTSIDE RECORDS SUMMARY | 2024-06-15 10:51 | XMS_ITS | Encounter Summary ---
Author Organization [facility] [place] [address] Care Team Providers Care Waitstaff Name Role Phone Ana Her MD Primary Care Provider [phone] Encounter Details Date Type Department Care Team (Latest Contact Info) Description 02/25/2017 1:31 PM EDT Hospital [place] [address] Maryam Yee MD [facility] [place] [address] Abnormal mammogram Discharge Disposition: Home Social History [...] unspecified documented in this encounter Care Teams Waitstaff Relationship Specialty Start Date End Date Ana Her MD [address] [place] [address] PCP - General 07/29/13 documented as of this encounter
--- OUTSIDE RECORDS SUMMARY | 2024-06-15 10:51 | XMS_ITS | Encounter Summary ---
[place] [address] Care Team Providers Care Briquette Molder Name Role Phone Ana Her MD Primary Care Provider [phone] Encounter Details Date Type Department Care Team (Late st Contact Info) Description 07/26/2013 [place] [address] Ana Her MD [facility] [address] [place] [address] Social History Tobacco Use Types Packs/Day Years [...] is a Non-reportable exam Ana Her MD [facility] FILM LIBRARY ORD ERABLES documented in this encounter Visit Diagnoses Not on filedocumented in this encounter Care Teams Briquette Molder Relationship Specialty Start Date End Date Ana Her MD [address] [place] [address] PCP - General 07/29/13 documented as of this encounter
--- OUTSIDE RECORDS SUMMARY | 2024-06-15 10:51 | XMS_ITS | Encounter Summary ---
[place] [address] Care Team Providers Care Turbine Room Attendant Name Role Phone Ana Her MD Primary Care Provider [phone] Encounter Details Date Type Department Care Team (Late st Contact Info) Description 03/18/2017 Telephone [place] [phone] Bryanna Marsh RN Social History Tobacco Use [...] give Digna a call her number is [phone]. The below is from Dr. Chen visit [...] on filedocumented in this encounter Care Teams Turbine Room Attendant Relationship Specialty Start Date End Date Ana Her MD [address] [place] [address] PCP - General 07/29/13 documented as of this encounter
--- OUTSIDE RECORDS SUMMARY | 2024-06-15 10:51 | XMS_ITS | Encounter Summary ---
Author Organization [facility] Address [address] [place] [address] Care Team Providers Care Roving Hauler Name Role Phone Unknown, Provider Primary Care Provider Unava ilable Encounter Details Date Type Department Care Team (Late st Contact Info) Description 01/20/2020 Lab Requisition [facility] Pathology & Laboratory Medicine - [facility] [address] [place] [address] Outr Resulting Lab, Provider Social History Tobacco [...] rt-PCR Result NEGATIVE Negative 01/21/2020 16:10 EDT [facility] Comment: 2019-novel Coronavirus (2019-nCoV) [...] in accordance with CLIA regulations, [employer] (CAP) guidelines (Jul 21, 2019), and FDA guidance (Jul 02, 2019). This test is only for use under the Food and Drug Administration's Emergency Use Authorization. Swab ENTIRE NASOPHARYNX / Unknown 01/20/2020 10:30 EDT 01/20/2020 15:35 EDT us Provider Outr Resulting Lab MICROBIOLOGY - GENER AL ORDERABLES Final Result Performing Organization Address City/State/[facility] Co de Phone Number [facility] [place], [place] * COVID-19 TESTING (01/20/2020 10:30 EDT) [...] in accordance with CLIA regulations, [employer] (CAP) guidelines (Jul 21, 2019), and FDA guidance (Jul 02, 2019). This test is only for use under the Food and Drug Administration's Emergency Use Authorization. Performing Lab [facility] 01/21/2020 17:21 EDT [facility] Swab 01/20/2020 10:3 0 EDT 01/20/2020 15:35 EDT us Provider Outr Resulting Lab MICROBIOLOGY - GENER AL ORDERABLES Final Result [facility] [address] [place] [address] [facility] [place], [place] documented in this encounter Visit Diagnoses Not on filedocumented in this encounter Care Teams Roving Hauler Relationship Specialty Start Date End Date Unknown, Provider, PCP - General 01/13/14 documented as of this encounter
--- OUTSIDE RECORDS SUMMARY | 2024-06-15 10:51 | XMS_ITS | Encounter Summary ---
[place] [address] Care Team Providers Care Channel Marketing Manager Name Role Phone Ana Her MD Primary Care Provider [phone] Reason for Visit * Reason Comments Establish Care * Consultation (Routine) - Specialty Diagnoses / Procedures Referred By Christiano hackett Referred To Contact Hematology and Oncology Diagnoses Other abnormal and inconclusive findings on diagnostic imaging of breast abnormal mammo, left breast Jackie Cisneros, WENDY [address] [place] [address] [facility]c [address] [place] [address] Referral ID Status Reason Start Date Expiration Date V isits Requested Visits Authorized [id number] Consult, Test & Treat [facility] 02/17/2017 05/20/2017 6 6 Encounter Details Date Type Department Care Team (Late st Contact Info) Description 03/03/2017 9:00 AM EDT Office [place] [address] Malika Chen MD [facility] [place] [address] Argentina Sanchez, RN Malignant neoplasm [...] Exercises handout created by physical therapists at [facility]. 7. Breast Cancer Treatment Process care map provided and reviewed. 8. Things to Consider...What I Wish I Knew advice from breast cancer patients handout provided. She verbalized understanding of the plan of care and states all her questions were answered. Twentyminutes was spent in education and providing support. Alma Delia has our contact information. 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 She has no known breast masses, no adenopathy, no nipple discharge. Alma Delia had a bone scan in [place] which was read as possible metastasis in the left tibia. Of note- she fractured this area recently. She has recovered well. PMH HNT NIDDM not on meds Spinal stenosis Fractured left tibial plateau December, GERD FH: Maternal first cousin with breast cancer Brother with rectal cancer Sister with PE SH: lives alone. Has good support from sisters who live in [place]. Non smoker. Has a son who lives [...] positive documented in this encounter Care Teams Channel Marketing Manager Relationship Specialty Start Date End Date Ana Her MD [address] [place] [address] PCP - General 07/29/13 documented as of this encounter
--- OUTSIDE RECORDS SUMMARY | 2024-06-15 10:51 | XMS_ITS | Encounter Summary ---
Author Organization [facility] Address [address] [place] [address] Care Team Providers Care Diesel Engine Fitter Name Role Phone Unknown, Provider Primary Care Provider Unava ilable Encounter Details Date Type Department Care Team (Late st Contact Info) Description 03/17/2017 Results Only [facility] [phone] Kat Lazaro MD [facility] [address] [place] [id number] Social History Tobacco Use Types Packs/Day Years [...] ? DIGNA KIMBROUGH ? Accession #: ? [id number] ? : ? 1945 (Age: 71) ??F [...] (ASCP) 03/18/2017 8:14 AM End of Report [facility] 03/17/2017 16:1 5 EST 03/17/2017 16:15 EST us Kat Lazaro MD PATHOLOGY ORDERABLES Fin al Result [facility] [address] [place] [address] documented in this encounter Visit Diagnoses Not on filedocumented in this encounter Care Teams Diesel Engine Fitter Relationship Specialty Start Date End Date Unknown, Provider, PCP - General 01/13/14 documented as of this encounter
--- NOTE | 2024-06-29 10:00 | RT.EKG_ITS ---
APPROVED REPORT Exam: Resting ECG Reason for Exam: S/P ablation Patient Location: O HR:83 bpm ECG Measurements Heart Rate 83 AXIS [place] [id number] P [id number] QRSd 144 QRS -81 QT 426 T 46 QTc 501 Conclusion Atrial fibrillation...V-rate 77- 88, irreg A-activity RBBB and LAFB...QRSd >120mS, axis(-40,240)
== END 2024-07-01 23:59 | disposition home or self-care (01) ==
LOC: CR 10:12
PROVIDERS: PCP Family Medicine; Visit Provider Internal Medicine Cardiovascular Disease
DX: Q23.81 Bicuspid aortic valve (principal); Z95.2 Presence of prosthetic heart valve; Z51.89 Encounter for other specified aftercare
CPT/HCPCS: S9472

== ENCOUNTER 2024-08-01 10:09 | Outpatient (RCR) | payer MEDICARE, BC, SELFPAY | END 2024-08-01 23:59 | disposition home or self-care (01) | LOC: CR 10:09 | PROVIDERS: PCP Family Medicine; Visit Provider Internal Medicine Cardiovascular Disease | DX: Q23.1 Congenital insufficiency of aortic valve (principal); Z51.89 Encounter for other specified aftercare | CPT/HCPCS: S9472 ==

== ENCOUNTER 2024-09-09 12:06 | Observation (INO) | payer MEDICARE, BC, SELFPAY ==
[2024-09-09] VITALS (37 sets, daily range): BP systolic 104–165; BP diastolic 62–116; PULSE 83–107; RESP 9–27; TEMP 37.1–37.5; O2SAT 91–100
--- NOTE | 2024-09-09 12:00 | RT.EKG_ITS ---
APPROVED REPORT Exam: Resting ECG Reason for Exam: Syncope with collapse Patient Location: E HR:102 bpm ECG Measurements Heart Rate 102 AXIS [place] 147 P 94 QRSd 152 QRS -80 QT 402 T 77 QTc 524 Conclusion Sinus tachycardia...rate> 99 RBBB and LAFB...QRSd >120mS, axis(-40,240) Probable left ventricular hypertrophy...(RaVL+SV3)xQRSd >300
[2024-09-09 12:33] LABS: Abs Immature Grans 0.04 10^3/uL (0.0-0.06); Absolute Basophil Count 0.02 10^3/uL (0.0-0.2); Absolute Eosinophil Count 0.28 10^3/uL (0.0-0.7); Absolute Lymphocyte Count 0.76 10^3/uL (1.2-3.4); Absolute Neutrophil Count 6.56 10^3/uL (1.2-6.7); Basophils % 0.2 %; Eosinophils % 3.5 %; HGB 12.8 g/dL (11.2-15.7); Immature Grans % 0.5 %; Lymphocytes % 9.4 %; MCH 34.6 pg (27.0-33.0); MCHC 33.7 % (32.0-36.0); MCV 103 fL (80-95); MPV 10.6 fL (8.0-11.0); Neutrophils % 81.4 %; Platelet Count 105 10^3/uL (130-400); RDW 12.9 % (11.7-14.6); RDW-SD 48.7 fL; WBC 8.06 10^3/uL (4.4-10.8)
--- NOTE | 2024-09-09 12:45 | W.ED.GENAD ---
Discharge Plan Disposition Patient Disposition: Admit to [facility] Condition: Serious Discharge Details Chief Complaint: [id number] Clinical Impression: Fall, Syncope, Hematoma of right parietal scalp Primary Care Provider: Ana Her ED Provider: Cristofer Tang Home Meds and New Rx's Prescriptions: No Action calcium carbonate 600 mg calcium (1,500 mg) Tablet 600 mg PO DAILY ascorbic acid (vitamin C) [Vitamin C] 500 mg Tablet 500 mg PO DAILY magnesium 250 mg tablet 400 mg PO BID tolnaftate [Antifungal (tolnaftate)] 1 % cream 1 applic topical DAILY Qty: 30 0RF cholecalciferol (vitamin D3) 2,000 unit tablet 2,000 unit PO DAILY spironolactone 25 mg tablet 25 mg PO DAILY Xarelto 20 mg tablet 20 mg PO DAILY Rx Instructions: must administer with evening meal gabapentin 300 mg capsule 300 mg PO BID Rx Instructions: no abrupt cessation cyanocobalamin (vitamin B-12) [Vitamin B-12] 100 mcg tablet 1,000 mcg PO DIRECTED allopurinol 100 mg tablet 100 mg PO DAILY Patient Comments: 02.11.17 Pt states down to Qday.HE atorvastatin [Lipitor] 40 MG tablet 40 mg PO QPM colestipol 1 gram tablet 1 g PO BID PRN PRN (Reason: Dx microscopic colitis) acetaminophen 500 mg tablet 1,000 mg PO TID PRN (Reason: Pain) Qty: 90 0RF carvedilol 25 mg tablet 25 mg PO BID Qty: 60 2RF Rx Instructions: must administer with a meal/food levothyroxine 100 mcg tablet 75 mcg PO DAILY furosemide 80 mg tablet 40 mg PO DAILY tramadol 50 mg tablet 50 mg PO Q6H PRNQty: 8 0RF HPI General Mode of arrival: EMS. Date/Time Provider Initiated Documentation: 09/09/24 12:07. Limitations to Documentation: no limitations. Information obtained by: patient. HPI Narrative: 79-year-old female with multiple medical problems including history of atrial fibrillation on anticoagulation, status post TAVR, CHF, hypertension, here after syncopal episode. Patient notes she was feeling well this morning and was doing laundry in her basement and does not know what happened but woke up on the floor. She sustained injury to her head and right wrist. History limited secondary to altered mental status during syncopal episode. Patient does complain of moderate right-sided headache. No visual changes. Related Data Home Medications ?Medication ?Instructions ?Recorded ?Confirmed atorvastatin 40 mg tablet (Lipitor) 40 mg PO QPM 06/13/13 09/09/24 cholecalciferol (vitamin D3) 50 2,000 unit PO DAILY 04/13/19 09/09/24 mcg (2,000 unit) tablet tramadol 50 mg tablet 50 mg PO Q6H PRN #8 tabs 01/24/20 09/09/24 ascorbic acid (vitamin C) 500 mg 500 mg PO DAILY 04/19/20 09/09/24 tablet (Vitamin C) calcium carbonate 600 mg PO DAILY 04/19/20 09/09/24 spironolactone 25 mg tablet 25 mg PO DAILY 05/28/20 09/09/24 rivaroxaban 20 mg tablet (Xarelto) 20 mg PO DAILY 08/05/22 09/09/24 gabapentin 300 mg capsule 300 mg PO BID 09/25/22 09/09/24 cyanocobalamin (vitamin B-12) 100 1,000 mcg PO DIRECTED 01/08/23 09/09/24 mcg tablet (Vitamin B-12) tolnaftate 1 % topical cream 1 applic topical DAILY #30 grams 01/12/23 09/09/24 (Antifungal (tolnaftate)) acetaminophen 500 mg tablet 1,000 mg (2 x 500 mg) PO TID PRN 11/20/23 09/09/24 Pain #90 tabs carvedilol 25 mg tablet 25 mg PO BID #60 tabs 11/20/23 09/09/24 colestipol 1 gram tablet 1 g PO BID PRN PRN Dx microscopic 11/20/23 09/09/24 colitis levothyroxine 100 mcg tablet 75 mcg PO DAILY 07/21/24 09/09/24 magnesium 250 mg tablet 400 mg PO BID 07/21/24 09/09/24 allopurinol 100 mg tablet 100 mg PO DAILY 07/22/24 09/09/24 furosemide 80 mg tablet 40 mg PO DAILY 09/09/24 09/09/24 Previous Rx's ?Medication ?Instructions ?Recorded tramadol 50 mg tablet 50 mg PO Q6H PRN #8 tabs 01/24/20 tolnaftate 1 % topical cream 1 applic topical DAILY #30 grams 01/12/23 (Antifungal (tolnaftate)) acetaminophen 500 mg tablet 1,000 mg (2 x 500 mg) PO TID PRN 11/20/23 Pain #90 tabs carvedilol 25 mg tablet 25 mg PO BID #60 tabs 11/20/23 Allergies Allergy/AdvReac Type Severity Reaction Status Date / Time colchicine Allergy Intermediate Nausea Verified 09/09/24 12:39 amlodipine Allergy Unknown Swelling/Ed Verified 09/09/24 12:39 kathryn General Stated Complaint: [id number] FRANCINE: 2 Review of Systems All systems reviewed & are unremarkable except as noted in HPI and below Constitutional Constitutional: Reports as per HPI, Reports headache(s) and Denies weakness ENT Ears, Nose, Mouth, and Throat: Reports headache(s) Neurologic Neurologic: Reports headache(s) and Denies weakness Exam Const General: cooperative and no acute distress HENMT Head: no Jesus's sign, hematoma right parietal, laceration (1cm mid hematoma), no palpable skull fracture, no raccoon eyes and No periorbital ecchymosis Mouth: moist mucous membranes Eyes EOM: EOM intact bilaterally Resp Auscultation: clear to auscultation bilaterally, no rales, no rhonchi and no wheezes Cardio Rate: tachycardic Rhythm: regular rhythm Heart Sounds: no murmurs GI Palpation: soft, not firm, no guarding, no masses, not rigid and tender Other: rt upper abd Skin General skin exam: no rashes or lesions noted Neuro General: patient alert, patient awake and tone normal Extrem General: no edema Other: pain in groin lifting right leg off stretch Psych Appearance: grossly normal Mental Status: mental status grossly normal Course Vital Signs Vital signs: Vital Signs Pulse 103 H 09/09/24 12:08 Respiratory Rate 20 09/09/24 12:08 Blood Pressure 159/103 H 09/09/24 12:08 Pulse Oximetry 99 09/09/24 12:08 Pulse 95 H 09/09/24 12:32 Pulse 103 H 09/09/24 12:32 Respiratory Rate 18 09/09/24 12:32 Blood Pressure 151/95 H 09/09/24 12:32 Blood Pressure Mean 113 09/09/24 12:32 Blood Pressure Position Sitting 09/09/24 12:08 Pulse Oximetry 99 09/09/24 12:32 Oxygen Delivery Method Room Air 09/09/24 12:08 Oxygen Flow Rate 0 09/09/24 12:08 Lab/Test Results Lab/Test Results: Laboratory Tests Range/Units 09/09/24 12:21 WBC (4.4-10.8) 10^3/uL 8.06 RBC (3.93-5.22) 10^6/uL 3.70 L Hgb (11.2-15.7) g/dL 12.8 Hct (36.0-46.0) % 38.0 MCV (80-95) fL 103 H MCH (27.0-33.0) pg 34.6 H MCHC (32.0-36.0) % 33.7 RDW (11.7-14.6) % 12.9 Plt Count (130-400) 10^3/uL 105 L MPV (8.0-11.0) fL 10.6 Immature Gran % % 0.5 Neutrophils % % 81.4 Lymphocytes % % 9.4 Monocytes % % 5.0 Eosinophils % % 3.5 Basophils % % 0.2 Nucleated RBC % (0.0-0.3) % 0.0 Absolute Neutrophils (1.2-6.7) 10^3/uL 6.56 Absolute Lymphocytes (1.2-3.4) 10^3/uL 0.76 L Absolute Monocytes (0.1-0.8) 10^3/uL 0.40 Absolute Eosinophils (0.0-0.7) 10^3/uL 0.28 Absolute Basophils (0.0-0.2) 10^3/uL 0.02 Medical Decision Making 1245??79-year-old female with multiple medical problems including A-fib on Xarelto, here after syncopal episode with head trauma and injury to right wrist. Patient is hypertensive and tachycardic on arrival. She is saturating well in no respiratory distress and maintaining airway. Patient currently alert and oriented. Concern for acute intracranial life-threatening hemorrhage. Consider C-spine fracture. Plan to obtain CT imaging. Consider fracture of the right wrist. Consider acute intra-abdominal hemorrhage and pelvic fracture. Plan to obtain CT imaging of the chest abdomen pelvis. Consider arrhythmia. Patient apparently has been regularly in A-fib and there is plan to start amiodarone and also a scheduled cardioversion. Screening EKG was reviewed and interpreted by me: Please see report, sinus tachycardia 102 bpm, right bundle branch block and left anterior fascicular block are present with QRS duration of 152. Patient has scalp hematoma with laceration. Plan for wound care and will reassess if primary closure needed. 1435 --CT of the head and cervical spine was reviewed and interpreted by radiology: No acute intracranial findings on this noninfused CT scan of the brain. No evidence of cervical spine fracture, malalignment, nor acute compromise of the cervical spinal canal. Multilevel chronic degenerative changes. CT of the chest, abdomen and pelvis was interpreted by 1. No evidence of significant acute trauma sequelae in the chest, abdomen, and pelvis. 2. Aortic valve TAVR and cardiac pacemaker. Mild enlargement of the ascending thoracic aorta which exhibits a diameter of 4.2 cm. No evidence of dissection. No evidence of abdominal aortic aneurysm nor dissection. 3. Osseous findings as noted in body of report but no acute fractures evident. radiology: X-ray of the right wrist was reviewed and interpreted by radiology: Soft tissue swelling but no acute osseous findings. Please refer to radiology reports for further details/incidental findings. Labs were reviewed and nondiagnostic. Initial troponin negative. Delta troponin pending. Scalp wound was cleansed by nursing and reexamined. Small laceration with abrasion is healing. No indication for primary closure. Patient tetanus is up-to-date per nursing. Plan for hospitalization for cardiac monitoring. I called and spoke with [facility] PERSON Rafa, discussed ED presentation course, she will admit the patient. 1454 --patient now relates that she may have been unconscious for a prolonged period of time but is unsure how long she was on the floor. Consider concussion. Consider rhabdo and will check CK. Quality:[facility] Health Related Social Needs: No Data to Display [facility] All Active Problems (Updated 09/09/24 @ 14:47 by Cristofer Tang MD) Hematoma of right parietal scalp (Acute) Syncope (Chronic) Fall (Acute) Status post cardiac pacemaker procedure (Acute) placed at [facility] 10/22/23 [employer] dual champe4 Lesion of left upper eyelid (Acute) Mechanical low back pain (Acute) Lumbar spondylosis (Acute) Postlaminectomy syndrome (Acute) Lumbar radiculitis (Acute) Macrocytic anemia (Acute) S/P TAVR (transcatheter aortic valve replacement) (Acute) 10/20/23 [facility] 10/20/23 [facility] Atrial fibrillation (Chronic) Congestive heart failure (Chronic) Spinal stenosis, lumbar (Acute) Osteopenia (Acute) GERD (gastroesophageal reflux disease) (Chronic) Chronic pain of left lower extremity (Acute) Arthritis (Acute) Afib (Chronic) s/p lpulm vein isolation 05/2018, Xarelto Leg cramps (Acute) Venous stasis (Acute) Aortic stenosis (Chronic) congenital bi-cuspid valve Per pt. states she see's mingo hyde, at [facility] Anemia, iron deficiency (Acute) CKD (chronic kidney disease) stage 3, GFR 30-59 ml/min (Acute) Anticoagulation adequate (Acute) Xarelto RACHAEL (obstructive sleep apnea) (Chronic) Chronic venous insufficiency (Acute) HTN (hypertension) (Chronic) Hypothyroidism (Chronic) Hyperlipidemia (Acute) Peripheral neuropathy (Acute) Leg edema (Acute) Other specified polyneuropathies (Acute) Nail dystrophy (Acute) Toe pain, left (Acute) Toe pain, right (Acute) Tinea unguium (Acute) Other specified peripheral vascular diseases (Acute) Difficulty in walking, not elsewhere classified (Acute) Medical History Family history of malignant neoplasm of digestive organ Prediabetes Spasm Sciatica of right side 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 Pain in left lower leg Aneurysm of ascending aorta Bicuspid aortic valve Pain in thoracic spine Obesity Cardiac pacemaker in situ Osteoporotic hip fracture Aortic stenosis with bicuspid valve Trigger finger, right little finger Injection: 12/18/2022 History of blood transfusion Diarrhea Foot pain, right Skin fissure Sciatica of left side Breast cancer in female Hiatal hernia COVID-19 Trigger finger, left index finger Depo-Medrol injection: 08/13/2020 Fatigue COLÓN (dyspnea on exertion) Cervical polyp Back pain Gout of ankle Trigger finger, right ring finger Carpal tunnel syndrome Acute back pain with sciatica Chondrocalcinosis of left knee Injected: 01/03/2020, 09/09/2021 PUD (peptic ulcer disease) Breast cancer left breast Surgical History History of open reduction and internal fixation (ORIF) procedure distal radius on the left 05/2016 Right ankle History of heart surgery (PVI) Pulmonary Vein Isolation for Afib 05/2018 History of transcatheter aortic valve implantation (RONEL) 10/20/2023 Left carpal tunnel syndrome S/P L ECTR: 12/31/2022 Hx of inguinal hernia repair H/O lumbosacral spine surgery Lumbar Foraminotomy L4 History of carpal tunnel surgery of right wrist (01/24/20) History of ankle surgery right w/ screws History of laminectomy Trigger finger, left little finger s/p release 05/10/2019 Colonoscopy - MAC (03/17/17) Cholecystectomy Family History Grandmother Colon cancer Mother , 66 CAD (coronary artery disease) Family history of heart failure Father , 61 Stroke Family history of stroke Sister , 58 Pneumonia Brother , secondary drug overdose age 30 Drug overdose Family history of coronary artery disease Maternal Grandfather Colon cancer Social History Smoking/Tobacco Use Status: Never Smoking risk assessment performed?: Yes Alcohol Intake: current Alcohol Intake frequency: a few times a week Alcohol type: beer, wine and hard liquor Drug use: Never Substance use type: does not use Household members: none Housing: house Number of Children: 2 current occupation: Retired Current gender identity: female What type of physical activity do you participate in: independent ambulation Do you feel safe at home: Yes Do you feel safe in your relationship?: Yes PAWSS Have you Been Recently Intoxicated or Drunk Within the Last 30 days?: No Have you Ever Experienced Previous Episodes of Alcohol Withdrawal?: No Have you ever Experienced Withdrawal Seizures?: No Have you ever Experienced Delirium Tremens(DT)s?: No Have you ever undergone Alcohol Rehabilitation Treatment (i.e, inpt ot outpatient treatment programs)?: No Have you ever Experienced Blackouts?: No Have you ever Combined Alcohol with other Downers within the last 90 days?: No Have you ever Combined Alcohol with any other Substance of Abuse during the last 90 days?: No Positive Blood Alcohol level on Presentation? [PCS.BAL]: No Evidence of Increased Autonomic Activity (i.e. HR>120, tremor, sweating, agitation, nausea)?: No Result: 0
[2024-09-09 12:50] LABS: ALT 28 U/L (14-59); AST 23 U/L (15-37); Albumin 4.3 g/dL (3.4-5.0); Alkaline Phosphatase 66 U/L (46-116); BUN 23 mg/dL (7-18); Bilirubin, Total 1.3 mg/dL (0.2-1.0); Calcium 9.6 mg/dL (8.5-10.1); Chloride 102 mmol/L (98-107); Estimated GFR 57.31 (mL/min/1.73m2); Glucose 123 mg/dL (74-106); Magnesium 1.8 mg/dL (1.8-2.4); Potassium 4.3 mmol/L (3.5-5.1); Sodium 139 mmol/L (136-145); Total Protein 7.4 g/dL (6.4-8.2); Troponin I 17 ng/L (<or=51)
[2024-09-09] MEDS: Normal Saline - Diluent 50 ML VIAL IJ (13:37)
[2024-09-09] MEDS: Omnipaque 350 MG/ML 500 ML BTL-Imaging package 100 ML IJ (13:38)
--- NOTE | 2024-09-09 13:38 | DI.CT_ITS ---
Exam(s) CT HEAD CERVICAL SPINE WO EXAM: CT HEAD CERVICAL SPINE WO CLINICAL HISTORY: trauma, fall. TECHNIQUE: Imaging Protocol: Axial computed tomography images with coronal and sagittal reformatted images were created and reviewed COMPARISON: CT HEAD WITHOUT CONTRAST from 05/16/2017 FINDINGS: BRAIN: There is a right sided scalp hematoma and laceration. There is no radiopaque foreign body in the sof t tissues of the scalp at this level and there is no skull fracture. There is no fluid in the paranasal sinuses and mastoid air cells. There is no evidence of intracranial hemorrhage, mass effect, or shift of midline structures. There are no extra-axial fluid collections. The ventricles are not enlarged or shifted and there is no blo od within the ventricular system nor within the basal cisterns. There is symmetrical involutional change consistent with this patient's age and unchanged from prior CT scan of 2018. CERVICAL SPINE: There is no evidence of fracture nor listhesis. No significant prevertebral soft tissue swelling. There is mild reversal of the normal curvature. There is chronic disc space narrowing at C5-6 and C6 -7 levels. There is multilevel facet arthropathy but no facet joint malalignment. No significant osseous lesions evident. IMPRESSION: No acute intracranial findings on this noninfused CT scan of the brain. No evidence of cervical spine fracture, malalignment, nor acute compromise of the cervical spinal can al. Multilevel chronic degenerative changes. By myself to ER 09/09/2024 at 1:58 p.m. RADIATION DOSE DELIVERED: 1,251.32mGy.cm Total DLP DATA REPOSITORY: All CT scans at this facility are submitted to the National Radiology Data Registry (NRDR) Dose Index Registry (DIR) with the [employer] (ACR). RADIATION OPTIMIZATION: All CT scans at this facility use at least one of these dose optimization te chniques: automated exposure control; mA and/or kV adjustment per patient size (includes targeted exa ms where dose is matched to clinical indication); or iterative reconstruction.
--- NOTE | 2024-09-09 13:39 | DI.CT_ITS ---
Exam(s) CT CHEST/ABD/PEL W EXAM: CT CHEST/ABD/PEL W CLINICAL HISTORY: fall, on xarelto, right abd pain, rt pelvic pain. TECHNIQUE: Imaging Protocol: Axial computed tomography images with coronal and sagittal reformatted images were created and reviewed CONTRAST MATERIAL: Intravenous: Omnipaque 350 Contrast volume:100 ml Oral: None COMPARISON: CT CT CHEST PE CTA from 11/18/2023 FINDINGS: CHEST: LUNGS: There is no evidence of lung contusion or infiltrate nor pleural effusion and no pneumothorax. No ominous pulmonary nodules.. MEDIASTINUM: No evidence of sternal fracture or mediastinal hematoma. No incidental hilar nor medias tinal adenopathy. Visualized thyroid unremarkable. Left bipolar subclavian pacemaker noted with hilaria d tips in RA and RV. CARDIAC: Cardiomegaly. There is an aortic valve TAVR evident. The diameter of the ascending thoraci c aorta is prominent, measuring 4.2 cm. There is, however, no evidence of aortic dissection. The di ameter of the arch and descending thoracic aorta are slightly prominent but also without evidence of dissection. OSSEOUS: No rib fractures. No sternal fracture. No fractures of the thoracic vertebra. There is in dentation of the inferior endplate L1 noted which is possibly not acute. It appears to have been pre sent on CT scan of November 2023. ABDOMEN: No evidence of bowel wall nor mesenteric hematoma and there is no ascites. There is some subcutaneou s bruising over the lateral aspect of the right hip but no hip fracture evident. LIVER: Intact. No lacerations. No significant lesions. GALLBLADDER/BILIARY: The gallbladder surgically absent. CBD is not dilated. PANCREAS: No evidence of pancreatic mass nor dilatation of the pancreatic duct. SPLEEN: No evidence of splenic laceration. Spleen size is upper normal. There are few tiny cysts in the spleen measuring up to 8 mm. Splenic and portal veins are patent. ADRENALS: There are no significant adrenal masses. No adrenal hemorrhages KIDNEYS: No evidence of renal lacerations nor subcapsular hematomas. No cysts. No solid renal june s. No calculi. No hydronephrosis nor hydroureter.. URINARY BLADDER: Upper normal size. No intraluminal clots nor masses nor radiopaque calculi. The pe lvic ureters are not dilated. ABDOMINAL AORTA: Abdominal aorta is intact. No aneurysm. No dissection. Aortoiliac segments also a ppear unremarkable. LYMPH NODES: There is no retroperitoneal nor paraaortic adenopathy. ABDOMINAL WALL: No evidence of significant anterior abdominal wall nor inguinal hernia. GI: There is no evidence of bowel obstruction.No bowel wall hematoma PELVIS: LYMPH NODES: There is no intrapelvic nor inguinal adenopathy. GI: No evidence of appendicitis.Sigmoid diverticuli but no evidence of acute diverticulitis. URINARY BLADDER: No calculi nor masses evident REPRODUCTIVE: Uterus and adnexal regions unremarkable and no free fluid in the pelvis. OSSEOUS: Chronic height loss of L3 and inferior aspect of L1 vertebral bodies. Multilevel chronic de generative disc disease. No listhesis evident. No pars defects. No significant osseous lesions. T here is a benign intraosseous hemangioma evident in L1 vertebral body. IMPRESSION: 1. No evidence of significant acute trauma sequelae in the chest, abdomen, and pelvis. 2. Aortic valve TAVR and cardiac pacemaker. Mild enlargement of the ascending thoracic aorta which e xhibits a diameter of 4.2 cm. No evidence of dissection. No evidence of abdominal aortic aneurysm n or dissection. 3. Osseous findings as above but no acute fractures evident. Report called by myself to ER physician 09/09/2024 at 2:15 p.m. RADIATION DOSE DELIVERED: 919.72mGy.cm Total DLP DATA REPOSITORY: All CT scans at this facility are submitted to the National Radiology Data Registry (NRDR) Dose Index Registry (DIR) with the [employer] (ACR). RADIATION OPTIMIZATION: All CT scans at this facility use at least one of these dose optimization te chniques: automated exposure control; mA and/or kV adjustment per patient size (includes targeted exa ms where dose is matched to clinical indication); or iterative reconstruction.
--- NOTE | 2024-09-09 13:42 | DI.RAD_ITS ---
Exam(s) XR WRIST RT COMPLETE EXAM: XR WRIST RT COMPLETE CLINICAL HISTORY: fall, pain bruising. TECHNIQUE: 2D digital imaging was performed. COMPARISON: No exams were available for comparison FINDINGS: 3 views There is soft tissue swelling dorsally but no evidence of acute fracture or dislocation nor significa nt ulnar variance. Scaphoid and scapholunate distance appear normal. There are moderate degenerativ e changes in the 1st carpometacarpal joint. IMPRESSION: Soft tissue swelling but no acute osseous findings. DATA REPOSITORY: RADIATION DOSE DELIVERED:
--- NOTE | 2024-09-09 14:40 | HPE_ITS ---
Date of service: 09/09/24 Time of Service: 14:40 Assessment and Plan Assessment and plan (1) Syncope: Status: Chronic Assessment and plan: Syncopal episode at home, ACS ruled out as per symptomatology, negative and troponins negative x 3. No O2 requirement, no chest pain and no right strain on EKG most likely not a PE. Normal TSH Cardiogram ordered but not available today could be done on Thursday or outpatient if the patient is still admitted. Last LVEF in 11/2023 was 55% CT negative for intra-cranial bleed or other acute findings of spine and abdomen Imaging showed -No right hand fracture No aneurism as per imaging Telemetry slow IVF ortho VS (2) Hematoma of right parietal scalp: Status: Acute Assessment and plan: Appears stable on home DOAC dosing - cardioversion on 09/23/24 CBC at 2100 and in AM (3) Fall: Status: Acute Assessment and plan: PT consult Leg pain (4) Macrocytic anemia: Status: Acute Assessment and plan: Stable On home dose B12 (5) S/P TAVR (transcatheter aortic valve replacement): Status: Acute Assessment and plan: On Xeralta (6) Atrial fibrillation: Status: Chronic Assessment and plan: On coreg and DOAC Telemetry (7) Congestive heart failure: Status: Chronic Assessment and plan: last LEVF 55% in 2023 On home dose furosemide (8) GERD (gastroesophageal reflux disease): Status: Chronic Assessment and plan: On home dose (9) CKD (chronic kidney disease) stage 3, GFR 30-59 ml/min: Status: Acute Assessment and plan: Cr at baseline around 1.0 GFR 57 BMP in AM (10) HTN (hypertension): Status: Chronic Assessment and plan: On home dose of aldactone, (11) Hypothyroidism: Status: Chronic Assessment and plan: on home dose levothyroxine (12) Hyperlipidemia: Status: Acute Assessment and plan: On home dose statin (13) Chronic pain: Status: Chronic Assessment and plan: On Ultram Q12 PRN at home will continue Scheduled APAP x 24 hours d/t increased aching s/p fall Discussed with Dr. Ordonez History of Present Illness History of Present Illness Chief Complaint: syncope Narrative: This 79 years old female patient with past medical history significant for atrial fibrillation on Xarelto and carvedilol, TAVR , CHF with last LVEF at 55%, hypertension presented today to the ED via EMS for evaluation of syncopal episode. Patient mention completing laundry in the basement but then woke up on the floor. No report of dizziness or in vision. Patient reported head and right wrist strike as well as right-sided headache on arrival to the ED. EKG showed sinus tachycardia 102 without signs of coronary occlusion renal ACS with negative troponins x 2. In the ED workup was negative for acute findings as per CT imaging of her head and neck, as well as abdomina and pelvic CT. Stable right-sided parietal scalp hematoma noted on imaging. Blood work was unremarkable except for thrombocytopenia at 105, minimally elevated BUN at 23, total bilirubin at 1.3 similar to past values in 2021- 2022. The patient was admitted to the hospitalist service with telemetry for evaluation and management of syncopal episode. Full CODE STATUS confirmed. Patient denied dizziness, lightheadedness, aura , change in vision, chills, fever, cough, chest pain, palpitation nausea, vomiting, diarrhea, abdominal pain, dysuria. No report of past medical history of seizures or past syncope. Reported ablation completed in June that failed with having a date for cardioversion on 09/23/2024 at [facility] in [place] . Review of Systems All systems reviewed & are unremarkable except as noted in HPI and below Constitutional Constitutional: Reports body ache(s) (From fall) and Reports headache(s) (Status post fall) ENT Ears, Nose, Mouth, and Throat: Reports headache(s) (Status post fall) Neurologic Neurologic: Reports headache(s) (Status post fall) [facility], [facility] All Active Problems (Updated 09/09/24 @ 17:16 by Cynthia Craig APRN) Chronic pain (Chronic) Hematoma of right parietal scalp (Acute) Syncope (Chronic) Fall (Acute) Status post cardiac pacemaker procedure (Acute) placed at [facility] 10/22/23 [employer] dual champe4 Lesion of left upper eyelid (Acute) Mechanical low back pain (Acute) Lumbar spondylosis (Acute) Postlaminectomy syndrome (Acute) Lumbar radiculitis (Acute) Macrocytic anemia (Acute) S/P TAVR (transcatheter aortic valve replacement) (Acute) 10/20/23 [facility] 10/20/23 [facility] Atrial fibrillation (Chronic) Congestive heart failure (Chronic) Spinal stenosis, lumbar (Acute) Osteopenia (Acute) GERD (gastroesophageal reflux disease) (Chronic) Chronic pain of left lower extremity (Acute) Arthritis (Acute) Afib (Chronic) s/p lpulm vein isolation 05/2018, Xarelto Leg cramps (Acute) Venous stasis (Acute) Aortic stenosis (Chronic) congenital bi-cuspid valve Per pt. states she see's mingo hyde, at [facility] Anemia, iron deficiency (Acute) CKD (chronic kidney disease) stage 3, GFR 30-59 ml/min (Acute) Anticoagulation adequate (Acute) Xarelto RACHAEL (obstructive sleep apnea) (Chronic) Chronic venous insufficiency (Acute) HTN (hypertension) (Chronic) Hypothyroidism (Chronic) Hyperlipidemia (Acute) Peripheral neuropathy (Acute) Leg edema (Acute) Other specified polyneuropathies (Acute) Nail dystrophy (Acute) Toe pain, left (Acute) Toe pain, right (Acute) Tinea unguium (Acute) Other specified peripheral vascular diseases (Acute) Difficulty in walking, not elsewhere classified (Acute) Medical History Family history of malignant neoplasm of digestive organ Prediabetes Spasm Sciatica of right side 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 Pain in left lower leg Aneurysm of ascending aorta Bicuspid aortic valve Pain in thoracic spine Obesity Cardiac pacemaker in situ Osteoporotic hip fracture Aortic stenosis with bicuspid valve Trigger finger, right little finger Injection: 12/18/2022 History of blood transfusion Diarrhea Foot pain, right Skin fissure Sciatica of left side Breast cancer in female Hiatal hernia COVID-19 Trigger finger, left index finger Depo-Medrol injection: 08/13/2020 Fatigue COLÓN (dyspnea on exertion) Cervical polyp Back pain Gout of ankle Trigger finger, right ring finger Carpal tunnel syndrome Acute back pain with sciatica Chondrocalcinosis of left knee Injected: 01/03/2020, 09/09/2021 PUD (peptic ulcer disease) Breast cancer left breast Surgical History History of open reduction and internal fixation (ORIF) procedure distal radius on the left 05/2016 Right ankle History of heart surgery (PVI) Pulmonary Vein Isolation for Afib 05/2018 History of transcatheter aortic valve implantation (RONEL) 10/20/2023 Left carpal tunnel syndrome S/P L ECTR: 12/31/2022 Hx of inguinal hernia repair H/O lumbosacral spine surgery Lumbar Foraminotomy L4 History of carpal tunnel surgery of right wrist (01/24/20) History of ankle surgery right w/ screws History of laminectomy Trigger finger, left little finger s/p release 05/10/2019 Colonoscopy - MAC (03/17/17) Cholecystectomy Family History Grandmother Colon cancer Mother , 66 CAD (coronary artery disease) Family history of heart failure Father , 61 Stroke Family history of stroke Sister , 58 Pneumonia Brother , secondary drug overdose age 30 Drug overdose Family history of coronary artery disease Maternal Grandfather Colon cancer Social History Smoking/Tobacco Use Status: Never Smoking risk assessment performed?: Yes Alcohol Intake: current Alcohol Intake frequency: a few times a week Alcohol type: beer, wine and hard liquor Drug use: Never Substance use type: does not use Household members: none Housing: house Number of Children: 2 current occupation: Retired Current gender identity: female What type of physical activity do you participate in: independent ambulation Do you feel safe at home: Yes Do you feel safe in your relationship?: Yes Meds Allergies and Home Medications Allergies Allergy/AdvReac Type Severity Reaction Status Date / Time colchicine Allergy Intermediate Nausea Verified 09/09/24 12:39 amlodipine Allergy Unknown Swelling/Ed Verified 09/09/24 12:39 kathryn Home Medications ?Medication ?Instructions ?Recorded ?Confirmed ?Type atorvastatin 40 mg tablet (Lipitor) 40 mg PO QPM 06/13/13 09/09/24 History cholecalciferol (vitamin D3) 50 2,000 unit PO DAILY 04/13/19 09/09/24 History mcg (2,000 unit) tablet tramadol 50 mg tablet 50 mg PO Q6H PRN #8 tabs 01/24/20 09/09/24 Rx ascorbic acid (vitamin C) 500 mg 500 mg PO DAILY 04/19/20 09/09/24 History tablet (Vitamin C) calcium carbonate 600 mg PO DAILY 04/19/20 09/09/24 History spironolactone 25 mg tablet 25 mg PO DAILY 05/28/20 09/09/24 History rivaroxaban 20 mg tablet (Xarelto) 20 mg PO DAILY 08/05/22 09/09/24 History gabapentin 300 mg capsule 300 mg PO BID 09/25/22 09/09/24 History cyanocobalamin (vitamin B-12) 100 1,000 mcg PO DIRECTED 01/08/23 09/09/24 History mcg tablet (Vitamin B-12) tolnaftate 1 % topical cream 1 applic topical DAILY #30 grams 01/12/23 09/09/24 Rx (Antifungal (tolnaftate)) acetaminophen 500 mg tablet 1,000 mg (2 x 500 mg) PO TID PRN 11/20/23 09/09/24 Rx Pain #90 tabs carvedilol 25 mg tablet 25 mg PO BID #60 tabs 11/20/23 09/09/24 Rx colestipol 1 gram tablet 1 g PO BID PRN PRN Dx microscopic 11/20/23 09/09/24 History colitis magnesium 250 mg tablet 400 mg PO BID 07/21/24 09/09/24 History allopurinol 100 mg tablet 100 mg PO DAILY 07/22/24 09/09/24 History furosemide 80 mg tablet 40 mg PO DAILY 09/09/24 09/09/24 History levothyroxine 75 mcg tablet 75 mcg PO DAILY 09/09/24 09/09/24 History Exam Narrative Exam Narrative: Constitutional The patient is sitting in bed without acute distress and has average body habitus/is obese/ is thin. HENMT: Right parietal hematoma-stable, scalp laceration scabbed over, normocephalic. Facial structures with normal appearance Eyes: Well aligned, intact ROM Neck: Normal ROM, no meningeal signs Neuro:alert and oriented to self, person, place time and situation. No neurological focal deficit Resp: Normal respiratory pattern, speaks in full sentences, unlabored breathing, clear lung bilaterally Cardio: ST HR 102, regular rhythm, S1, S2, no murmur, capillary refill<3 sec., bilateral radial and dorsalis pedis pulses are positive, palpable GI: Abdomen is not distended, soft and non tender, bowel sounds are present Integumentary: right parietal scalp laceration exttremities: moves all 4extremities Psych: RASS 0, congruent mood and normal affect. Results Labs 09/09/24 12:21 09/09/24 12:21 Labs: Laboratory Results - last 24 hr 09/09/24 12:21 WBC 8.06 RBC 3.70 L Hgb 12.8 Hct 38.0 MCV 103 H MCH 34.6 H MCHC 33.7 RDW 12.9 Plt Count 105 L MPV 10.6 Immature Gran % 0.5 Neutrophils % 81.4 Lymphocytes % 9.4 Monocytes % 5.0 Eosinophils % 3.5 Basophils % 0.2 Nucleated RBC % 0.0 Absolute Neutrophils 6.56 Absolute Lymphocytes 0.76 L Absolute Monocytes 0.40 Absolute Eosinophils 0.28 Absolute Basophils 0.02 Sodium 139 Potassium 4.3 Chloride 102 Carbon Dioxide 32.0 Anion Gap 5.0 BUN 23 H Creatinine 1.0 Est GFR (CKD-EPI 2020) 57.31 Glucose 123 H Calcium 9.6 Magnesium 1.8 Total Bilirubin 1.3 H AST 23 ALT 28 Alkaline Phosphatase 66 Troponin I 17 Total Protein 7.4 Albumin 4.3 Last Vital Signs Pulse 102 H 09/09/24 14:30 Resp 20 09/09/24 14:31 BP 155/89 H 09/09/24 14:30 Pulse Ox 98 09/09/24 14:30 PAWSS Have you Been Recently Intoxicated or Drunk Within the Last 30 days?: No Have you Ever Experienced Previous Episodes of Alcohol Withdrawal?: No Have you ever Experienced Withdrawal Seizures?: No Have you ever Experienced Delirium Tremens(DT)s?: No Have you ever undergone Alcohol Rehabilitation Treatment (i.e, inpt ot outpatient treatment programs)?: No Have you ever Experienced Blackouts?: No Have you ever Combined Alcohol with other Downers within the last 90 days?: No Have you ever Combined Alcohol with any other Substance of Abuse during the last 90 days?: No Positive Blood Alcohol level on Presentation? [PCS.BAL]: No Evidence of Increased Autonomic Activity (i.e. HR>120, tremor, sweating, agitation, nausea)?: No Result: 0 Time Spent Time spent with Patient: >75 minutes Time was spent: preparing to see the patient(eg.review tests), obtaining and/or reviewing separately otained hiistory, ordering medications,tests, procedures, referring, communicating with other health daytime caregiver, indepentently interpreting results, counseling the patient and care coordination
[2024-09-09 15:07] LABS: Troponin I 15 ng/L (<or=51)
--- NOTE | 2024-09-09 15:32 | W.PC.ACHO ---
Registration Status: Primary Language: Preferred Language: ED Information & Data Chief Complaint [id number] 09/09/24 12:49 Other Complaint HeadInjury 09/09/24 12:08 Triage Note Syncopal episode lasting 09/09/24 12:08 unknown period of time + head strike. PT reports waking up on the floor of her basement, last remembered waking up and getting her laundry out of the dryer. Wound on R side of head, bruise on R wrist, PT unsure what she hit. Denies neck pain. PT reports mild dizziness. 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 Pain in left lower leg Aneurysm of ascending aorta Bicuspid aortic valve Pain in thoracic spine Obesity Cardiac pacemaker in situ Osteoporotic hip fracture Aortic stenosis with bicuspid valve Trigger finger, right little finger History of blood transfusion Diarrhea Foot pain, right Skin fissure Sciatica of left side Breast cancer in female Hiatal hernia COVID-19 Trigger finger, left index finger Fatigue COLÓN (dyspnea on exertion) Cervical polyp Back pain Gout of ankle Trigger finger, right ring finger Carpal tunnel syndrome Acute back pain with sciatica Chondrocalcinosis of left knee PUD (peptic ulcer disease) Breast cancer (Last Reviewed 09/09/24 @ 12:47 by Cristofer Tang MD) History of open reduction and internal fixation (ORIF) procedure History of heart surgery History of transcatheter aortic valve implantation (RONEL) Left carpal tunnel syndrome Hx of inguinal hernia repair H/O lumbosacral spine surgery History of carpal tunnel surgery of right wrist (01/24/20) History of ankle surgery History of laminectomy Trigger finger, left little finger Colonoscopy - MAC (03/17/17) Cholecystectomy Most Recent Vital Signs Pulse 103 H 09/09/24 15:01 Pulse 103 H 09/09/24 15:01 Respiratory Rate 16 09/09/24 15:01 Respiratory Effort Normal 09/09/24 12:58 Respiratory Depth Normal 09/09/24 12:58 Respiratory Pattern Normal 09/09/24 12:58 Blood Pressure 142/93 H 09/09/24 15:01 Blood Pressure Mean 110 09/09/24 15:01 Blood Pressure Position Sitting 09/09/24 12:08 Pulse Oximetry 100 09/09/24 15:01 Oxygen Delivery Method Room Air 09/09/24 12:08 Oxygen Flow Rate 0 09/09/24 12:08 Allergies colchicine Allergy (Intermediate, Verified 09/09/24 12:39) Nausea N/V amlodipine Allergy (Unknown, Verified 09/09/24 12:39) Swelling/Edema Active Medications Generic Name Dose Route Start Last Admin Trade Name Mireille PRN Reason Stop Dose Admin Iohexol 100 ml 09/09/24 13:45 09/09/24 13:38 Omnipaque 350 Mg/Ml 500 Ml Btl-Imaging Package IJ 10/09/24 23:59 100 ml DIRECTED RACQUEL Administration Sodium Chloride 50 ml 09/09/24 13:45 09/09/24 13:37 Normal Saline - Diluent 50 Ml Vial IJ 50 ml .FOR DI USE RACQUEL Administration IV IV Catheter Type [Left Peripheral IV Antecubital] IV Catheter Gauge [Left 20 Antecubital] Diagnostics 09/09/24 09/09/24 09/09/24 Range/Units 15:23 14:55 14:04 WBC (4.4-10.8) 10^3/uL RBC (3.93-5.22) 10^6/uL Hgb (11.2-15.7) g/dL Hct (36.0-46.0) % MCV (80-95) fL MCH (27.0-33.0) pg MCHC (32.0-36.0) % RDW (11.7-14.6) % Plt Count (130-400) 10^3/uL MPV (8.0-11.0) fL Immature Gran % % Neutrophils % % Lymphocytes % % Monocytes % % Eosinophils % % Basophils % % Nucleated RBC % (0.0-0.3) % Absolute Neutrophils (1.2-6.7) 10^3/uL Absolute Lymphocytes (1.2-3.4) 10^3/uL Absolute Monocytes (0.1-0.8) 10^3/uL Absolute Eosinophils (0.0-0.7) 10^3/uL Absolute Basophils (0.0-0.2) 10^3/uL Sodium (136-145) mmol/L Potassium (3.5-5.1) mmol/L Chloride (98-107) mmol/L Carbon Dioxide (21.0-32.0) mmol/L Anion Gap (3-11) mmol/L BUN (7-18) mg/dL Creatinine (0.55-1.02) mg/dL Est GFR (CKD-EPI 2020) (mL/min/1.73m2) Glucose (74-106) mg/dL Calcium (8.5-10.1) mg/dL Magnesium (1.8-2.4) mg/dL Total Bilirubin (0.2-1.0) mg/dL AST (15-37) U/L ALT (14-59) U/L Alkaline Phosphatase (46-116) U/L Creatine Kinase Pending Troponin I Pending 15 (<or=51) ng/L Total Protein (6.4-8.2) g/dL Albumin (3.4-5.0) g/dL 09/09/24 Range/Units 12:21 WBC 8.06 (4.4-10.8) 10^3/uL RBC 3.70 L (3.93-5.22) 10^6/uL Hgb 12.8 (11.2-15.7) g/dL Hct 38.0 (36.0-46.0) % MCV 103 H (80-95) fL MCH 34.6 H (27.0-33.0) pg MCHC 33.7 (32.0-36.0) % RDW 12.9 (11.7-14.6) % Plt Count 105 L (130-400) 10^3/uL MPV 10.6 (8.0-11.0) fL Immature Gran % 0.5 % Neutrophils % 81.4 % Lymphocytes % 9.4 % Monocytes % 5.0 % Eosinophils % 3.5 % Basophils % 0.2 % Nucleated RBC % 0.0 (0.0-0.3) % Absolute Neutrophils 6.56 (1.2-6.7) 10^3/uL Absolute Lymphocytes 0.76 L (1.2-3.4) 10^3/uL Absolute Monocytes 0.40 (0.1-0.8) 10^3/uL Absolute Eosinophils 0.28 (0.0-0.7) 10^3/uL Absolute Basophils 0.02 (0.0-0.2) 10^3/uL Sodium 139 (136-145) mmol/L Potassium 4.3 (3.5-5.1) mmol/L Chloride 102 (98-107) mmol/L Carbon Dioxide 32.0 (21.0-32.0) mmol/L Anion Gap 5.0 (3-11) mmol/L BUN 23 H (7-18) mg/dL Creatinine 1.0 (0.55-1.02) mg/dL Est GFR (CKD-EPI 2020) 57.31 (mL/min/1.73m2) Glucose 123 H (74-106) mg/dL Calcium 9.6 (8.5-10.1) mg/dL Magnesium 1.8 (1.8-2.4) mg/dL Total Bilirubin 1.3 H (0.2-1.0) mg/dL AST 23 (15-37) U/L ALT 28 (14-59) U/L Alkaline Phosphatase 66 (46-116) U/L Creatine Kinase Troponin I 17 (<or=51) ng/L Total Protein 7.4 (6.4-8.2) g/dL Albumin 4.3 (3.4-5.0) g/dL [id number] Documentation Fingerstick Glucose Start: 09/09/24 12:12 Freq: Status: Active Protocol: Activity Type Activity Date Activity User E-sign Co-sign Detail Recorded Client Recorded Date Recorded By Document 09/09/24 12:11 BKG DAEMON(3) [id number] 09/09/24 12:12 BKG DAEMON(4) Intake and Output - 24 Hour Total 09/09/24 11:58 thru 09/09/24 12:08 Weight 83.2 kg Falls Risk Assessment History of Falls No History 09/09/24 12:14 Contributing Factors No Factors,Impairments 09/09/24 12:14 Ambulatory Aids Uses ambulatory device 09/09/24 12:14 Tubes/Lines None 09/09/24 12:14 Gait Evaluation W/any additional score 09/09/24 12:14 Cognition No cognitive impairment 09/09/24 12:14 Fall Total Score 38 09/09/24 12:14 Level of Risk Moderate Risk 09/09/24 12:14 v v v v v v v v v Sending and/or Receiving Nurses: Please use comment section below to note any information pertinent to the patient hand-off not included above. Information / Comments: Pt 79 yo. F, admit via [facility] through the ED today 09/09/24 @ 1534 to med/ surg unit rm 227 for obs. S/P syncope, fall and positive loss of consciousness at home while doing laundry. Hematoma and 1.5cm lac to rt temporal area and reports of abd. tenderness, and sore rt ft/leg. Pt A&Ox4 reports dizzyness. Denies SOB or chest pain att. GCS 15. 20g lft AC. Vitals stable. Negative trops. Report received from:[facility] dept. received report @ [id number] 09/09/24.
[2024-09-09 16:00] LABS: Troponin I 16 ng/L (<or=51)
[2024-09-09 16:06] LABS: Creatine Kinase 92 U/L (26-192)
[2024-09-09] MEDS: Acetaminophen 500 MG TAB 1000 MG PO ×2 (16:38→21:51)
[2024-09-09] MEDS: Normal Saline Flush 10 ML SYR IVP ×2 (16:39→19:47)
[2024-09-09] MEDS: Rivaroxaban 10 MG TABLET 20 MG PO (18:34)
[2024-09-09] MEDS: Atorvastatin 40 MG TAB PO (19:47)
[2024-09-09] MEDS: traMADol 50 MG TAB PO (19:47)
[2024-09-09] MEDS: Gabapentin 300 MG CAP PO (19:47)
[2024-09-09] MEDS: Magnesium Oxide 400 MG TAB PO (19:47)
[2024-09-09] MEDS: Carvedilol 25 MG TAB PO (19:48)
[2024-09-09] MEDS: Lactated Ringers 1,000 ML 50 ML IV (20:52)
[2024-09-09 21:28] LABS: HCT 41.1 % (36.0-46.0); HGB 13.9 g/dL (11.2-15.7); MCH 34.4 pg (27.0-33.0); MCHC 33.8 % (32.0-36.0); MCV 102 fL (80-95); MPV 11.2 fL (8.0-11.0); Platelet Count 134 10^3/uL (130-400); RBC 4.04 10^6/uL (3.93-5.22); RDW 12.9 % (11.7-14.6); RDW-SD 48.4 fL; WBC 10.09 10^3/uL (4.4-10.8)
[2024-09-09] MEDS: Colestipol 1 GM TAB PO (21:52)
[2024-09-10 03:28] VITALS: BP 119/81; PULSE 103; RESP 19; TEMP 37; O2SAT 95
[2024-09-10] MEDS: MORPHine 2 MG/ML SYR IVP (04:37)
[2024-09-10] MEDS: Lidocaine 5% Patch 2 PATCH TP (04:38)
[2024-09-10] MEDS: Levothyroxine 75 MCG TAB PO (05:26)
[2024-09-10 06:01] LABS: Abs Immature Grans 0.03 10^3/uL (0.0-0.06); Absolute Basophil Count 0.03 10^3/uL (0.0-0.2); Absolute Eosinophil Count 0.26 10^3/uL (0.0-0.7); Absolute Monocyte Count 0.51 10^3/uL (0.1-0.8); Absolute Neutrophil Count 7.39 10^3/uL (1.2-6.7); Basophils % 0.3 %; Eosinophils % 2.9 %; HCT 35.8 % (36.0-46.0); Immature Grans % 0.3 %; Lymphocytes % 8.9 %; MCH 34.2 pg (27.0-33.0); MCHC 33.5 % (32.0-36.0); MCV 102 fL (80-95); MPV 11.1 fL (8.0-11.0); Monocytes % 5.7 %; Neutrophils % 81.9 %; Platelet Count 111 10^3/uL (130-400); RBC 3.51 10^6/uL (3.93-5.22); RDW 12.9 % (11.7-14.6); WBC 9.02 10^3/uL (4.4-10.8)
[2024-09-10 06:14] LABS: BUN 22 mg/dL (7-18); CREATININE 0.9 mg/dL (0.55-1.02); Calcium 9.1 mg/dL (8.5-10.1); Chloride 103 mmol/L (98-107); Estimated GFR 65.03 (mL/min/1.73m2); Glucose 105 mg/dL (74-106); Potassium 3.7 mmol/L (3.5-5.1); Sodium 138 mmol/L (136-145)
[2024-09-10 07:43] VITALS: BP 122/71; PULSE 102; RESP 16; TEMP 36.7; O2SAT 98
[2024-09-10] MEDS: Acetaminophen 500 MG TAB 1000 MG PO ×3 (07:53→23:01)
[2024-09-10] MEDS: Calcium Carbonate 1.5 GM TAB PO (07:54)
[2024-09-10] MEDS: Allopurinol 100 MG TAB PO (07:54)
[2024-09-10] MEDS: Spironolactone 25 MG TAB PO (07:54)
[2024-09-10] MEDS: Gabapentin 300 MG CAP PO ×2 (07:54→20:09)
[2024-09-10] MEDS: Cholecalciferol (Vitamin D3) 1,000 UNIT TAB 2000 UNITS PO (07:55)
[2024-09-10] MEDS: Carvedilol 25 MG TAB PO ×2 (07:55→20:09)
[2024-09-10] MEDS: Furosemide 40 MG TAB PO (07:55)
[2024-09-10] MEDS: Colestipol 1 GM TAB PO ×2 (07:55→20:27)
[2024-09-10] MEDS: Ascorbic Acid 500 MG TAB PO (07:55)
[2024-09-10] MEDS: Magnesium Oxide 400 MG TAB PO ×2 (07:55→20:09)
[2024-09-10] MEDS: Cyanocobalamin 500 MCG TAB 1000 MCG PO (07:56)
--- NOTE | 2024-09-10 11:03 | PGE_ITS ---
Date of Service Date of service: 09/10/24 Time of Service: 11:04 Assessment and Plan Assessment and plan (1) Syncope: Start date: 09/10/24 Start time: 12:02 Status: Chronic Assessment and plan: Presented s/p syncopal episode at home, ACS ruled out as per symptomatology, negative and troponins negative x 3. No O2 requirement, no chest pain and no right strain on EKG most likely not a PE. Remained on the floor X 2 hours- did not appears post-ictal, no Hx of seizure, no aura or dizziness prior to syncope CT negative for intra-cranial bleed or other acute findings of spine and abdomen Imaging showed -No right hand fracture No aneurism as per imaging Normal TSH Echocardiogram ordered but not available today could be done on Thursday or outpatient if the patient is still admitted. Last LVEF at [facility] in 11/2023 was 55%- completed ASHLEY at [facility]. had no mention of her LVEF Ongoing Telemetry-minimal instances of 2 Type II AVB VS missed beats - not eliciting pacemaker firing, otherwise sinusal & non-sustained atrial fibrillation w controlled rate -Pacemaker interrogation: Card missing - info to be obtained also discussion with ordnance truck installation mechanic at [facility] , Dr. Burkett, is pending call return Slow IVF- will stop and encourage oral fluids Ortho VS negative (2) Hematoma of right parietal scalp: Start date: 09/10/24 Start time: 12:02 Status: Acute Assessment and plan: Stable - on home DOAC dosing - cardioversion on 09/23/24 Trending CBC -H&H 13.9 & 41.1 on admission now 12.0 & 35.8- most likely dilutional even in the setting of minimal hematuria not initially reported (3) Fall: Start date: 09/10/24 Start time: 12:02 Status: Acute Assessment and plan: PT consult Leg pain (4) Macrocytic anemia: Start date: 09/10/24 Start time: 12:02 Status: Acute Assessment and plan: Stable with stable thromocytopenia with platelets at 111 On home dose B12 Iron studies in the setting of unreported hematuria on admission CBC trending (5) S/P TAVR (transcatheter aortic valve replacement): Start date: 09/10/24 Start time: 12:02 Status: Acute Assessment and plan: On Xeralta (6) Hematuria: Start date: 09/10/24 Start time: 12:02 Status: Acute Assessment and plan: UA and UCx - also new c/o of dysuria re\amains afebrile (7) Atrial fibrillation: Start date: 09/10/24 Start time: 12:02 Status: Chronic Assessment and plan: On coreg and DOAC Telemetry as per point 1 Consulting with her ordnance truck installation mechanic Dr. Burkett- Electrolophysiologist Dr. Barrientos not available (8) Congestive heart failure: Start date: 09/10/24 Start time: 12:03 Status: Chronic Assessment and plan: last LEVF 55% in 2023-[facility] at [facility] w/o mentioned of LVEF in 06/2024 Ongoing home dose furosemide (9) GERD (gastroesophageal reflux disease): Start date: 09/10/24 Start time: 12:03 Status: Chronic Assessment and plan: On home dose calcium carbonate and mag oxide , no PPI or H2 on med list (10) CKD (chronic kidney disease) stage 3, GFR 30-59 ml/min: Start date: 09/10/24 Start time: 12:03 Status: Acute Assessment and plan: Stable Cr at baseline GFR 57 on admission BMP in AM (11) HTN (hypertension): Start date: 09/10/24 Start time: 12:03 Status: Chronic Assessment and plan: Ongoing home dose of aldactone and furosemide (12) Hypothyroidism: Start date: 09/10/24 Start time: 12:03 Status: Chronic Assessment and plan: ongoing home dose levothyroxine (13) Hyperlipidemia: Start date: 09/10/24 Start time: 12:03 Status: Acute Assessment and plan: Ongoing home dose statin (14) Chronic pain: Start date: 09/10/24 Start time: 12:03 Status: Chronic Assessment and plan: Ongoing home Ultram dosing Scheduled APAP 48 hours d/t increased aching s/p fall Continue lidocaine patch Morphine IV given overnight X1- will try to avoid opiods as much as possible, but NSAIDs are a more questionable option in the setting of CKD, hematuria on DOAC PT consult (15) Discharge planning issues: Status: Acute Assessment and plan: D/c home in AM if H&H remains stable in AM with PT versus going to [place] with daughter( has a secheduled cardioversion in [facility] on 09/23/24)- Will d/c with 30- day cardiac event recorder MA Gen. cardiology contacted - Dr. Membreno - contacted the patient's ordnance truck installation mechanic Dr. Edwards- call return sill pending Discussed with Dr. Ordonez Subjective Subjective Patient reports: still having pain, pain is less, tolerating liquids well, tolerating a regular diet, voiding w/o difficulty, bowel movement, afebrile and other (dysuria); denies diarrhea, blood in stool, nausea or vomiting Exam Narrative Exam Narrative: Constitutional The patient is sitting in bed without acute distress and has average body habitus/is obese/ is thin. HENMT: Right parietal hematoma-stable, scalp laceration scabbed over, normocephalic. Facial structures with normal appearance Eyes: Well aligned, intact ROM Neck: Normal ROM, no meningeal signs Neuro:alert and oriented X4 ,no neurological focal deficit Resp: Unlabored breathing, clear lung bilaterally Cardio: SR HR 70's- II AVB intermittent with HR >60,pacing sipke seen < 20%, S1, S2, no murmur, positive pulses to all 4 ext. GI: Abdomen is not distended, soft and non tender, bowel sounds are present Integumentary: right parietal scalp laceration exttremities: moves all 4 extremities, RLE pain-increased w movement -less functional chronically Psych: RASS 0, congruent mood and normal affect. Objective Last Vital Signs Temp 36.7 C 09/10/24 07:43 Pulse 102 H 09/10/24 07:43 Resp 16 09/10/24 07:43 BP 122/71 09/10/24 07:43 Pulse Ox 98 09/10/24 07:43 Laboratory Results - last 24 hr 09/09/24 09/09/24 09/09/24 12:21 14:04 15:23 WBC 8.06 RBC 3.70 L Hgb 12.8 Hct 38.0 MCV 103 H MCH 34.6 H MCHC 33.7 RDW 12.9 Plt Count 105 L MPV 10.6 Immature Gran % 0.5 Neutrophils % 81.4 Lymphocytes % 9.4 Monocytes % 5.0 Eosinophils % 3.5 Basophils % 0.2 Nucleated RBC % 0.0 Absolute Neutrophils 6.56 Absolute Lymphocytes 0.76 L Absolute Monocytes 0.40 Absolute Eosinophils 0.28 Absolute Basophils 0.02 Sodium 139 Potassium 4.3 Chloride 102 Carbon Dioxide 32.0 Anion Gap 5.0 BUN 23 H Creatinine 1.0 Est GFR (CKD-EPI 2020) 57.31 Glucose 123 H Calcium 9.6 Magnesium 1.8 Total Bilirubin 1.3 H AST 23 ALT 28 Alkaline Phosphatase 66 Creatine Kinase 92 Troponin I 17 15 16 Total Protein 7.4 Albumin 4.3 09/09/24 09/10/24 20:47 05:26 WBC 10.09 9.02 RBC 4.04 3.51 L Hgb 13.9 12.0 Hct 41.1 35.8 L MCV 102 H 102 H MCH 34.4 H 34.2 H MCHC 33.8 33.5 RDW 12.9 12.9 Plt Count 134 111 L MPV 11.2 H 11.1 H Immature Gran % 0.3 Neutrophils % 81.9 Lymphocytes % 8.9 Monocytes % 5.7 Eosinophils % 2.9 Basophils % 0.3 Nucleated RBC % 0.0 Absolute Neutrophils 7.39 H Absolute Lymphocytes 0.80 L Absolute Monocytes 0.51 Absolute Eosinophils 0.26 Absolute Basophils 0.03 Sodium 138 Potassium 3.7 Chloride 103 Carbon Dioxide 30.0 Anion Gap 5.0 BUN 22 H Creatinine 0.9 Est GFR (CKD-EPI 2020) 65.03 Glucose 105 Calcium 9.1 Magnesium Total Bilirubin AST ALT Alkaline Phosphatase Creatine Kinase Troponin I Total Protein Albumin PAWSS Have you Been Recently Intoxicated or Drunk Within the Last 30 days?: No Have you Ever Experienced Previous Episodes of Alcohol Withdrawal?: No Have you ever Experienced Withdrawal Seizures?: No Have you ever Experienced Delirium Tremens(DT)s?: No Have you ever undergone Alcohol Rehabilitation Treatment (i.e, inpt ot outpatient treatment programs)?: No Have you ever Experienced Blackouts?: No Have you ever Combined Alcohol with other Downers within the last 90 days?: No Have you ever Combined Alcohol with any other Substance of Abuse during the last 90 days?: No Positive Blood Alcohol level on Presentation? [PCS.BAL]: No Evidence of Increased Autonomic Activity (i.e. HR>120, tremor, sweating, agitation, nausea)?: No Result: 0 Time Spent with Patient Time Spent with Patient: >50 minutes Time was spent: preparing to see the patient(eg.review tests), obtaining and/or reviewing separately otained hiistory, ordering medications,tests, procedures, referring, communicating with other health eye care professional, indepentently interpreting results, counseling the patient and care coordination
[2024-09-10 12:04] LABS: Bilirubin Negative (Negative); Blood Large (Negative); Clarity Cloudy (Clear); Glucose Negative (Negative); Ketones Negative (Negative); Leukocyte Esterase Large (Negative); Nitrite Negative (Negative); Urobilinogen 0.2 mg/dL (Up to 0.2)
[2024-09-10 12:05] LABS: Lab Add On Test DONE
[2024-09-10 12:11] LABS: Abs Immature Grans 0.03 10^3/uL (0.0-0.06); Absolute Basophil Count 0.03 10^3/uL (0.0-0.2); Absolute Eosinophil Count 0.16 10^3/uL (0.0-0.7); Absolute Lymphocyte Count 0.64 10^3/uL (1.2-3.4); Absolute Monocyte Count 0.53 10^3/uL (0.1-0.8); Basophils % 0.3 %; Eosinophils % 1.5 %; HCT 36.2 % (36.0-46.0); HGB 12.2 g/dL (11.2-15.7); Immature Grans % 0.3 %; Lymphocytes % 5.9 %; MCH 34.8 pg (27.0-33.0); MCHC 33.7 % (32.0-36.0); MCV 103 fL (80-95); MPV 10.6 fL (8.0-11.0); Monocytes % 4.9 %; Neutrophils % 87.1 %; Platelet Count 112 10^3/uL (130-400); RBC 3.51 10^6/uL (3.93-5.22); RDW-SD 48.9 fL; WBC 10.79 10^3/uL (4.4-10.8)
[2024-09-10 12:12] LABS: C & S Indicated? C&S Done As Ordered; RBC >50 HPF (0-2)
[2024-09-10] MEDS: Normal Saline Flush 10 ML SYR IVP ×2 (12:33→20:10)
--- NOTE | 2024-09-10 13:12 | PT.INIE ---
PT Notes Visit Reasons: Syncope Inpatient Physical Therapy Evaluation Date: September 10, 2024 Referring Doctor: Cynthia Craig NP PT Orders: PT CONSULT: Fall safety assessment, safety consult for DC Precautions: Limited activity tolerance, fall precautions Patient Profile/Admitting Diagnosis: Patient is a 79-year-old female who came to the ED made 9 secondary to a fall on the floor resulting in an injury to her right shoulder, wrist, ribs and hip. She had a syncopal episode resulting in a hematoma to the right parietal scalp region. Had diagnostics of CT through her head neck abdomen and pelvis which were negative. She is slated for cardioversion at [facility] on September 23, 2024. PMHX: PFSH All Active Problems (Updated 09/09/24 @ 17:16 by Cynthia Craig APRN) Chronic pain (Chronic) Hematoma of right parietal scalp (Acute) Syncope (Chronic) Fall (Acute) Status post cardiac pacemaker procedure (Acute) placed at [facility] 10/22/23 Med[employer]onic dual [id number] of left upper eyelid (Acute) Mechanical low back pain (Acute) Lumbar spondylosis (Acute) Postlaminectomy syndrome (Acute) Lumbar radiculitis (Acute) Macrocytic anemia (Acute) S/P TAVR (transcatheter aortic valve replacement) (Acute) 10/20/23 [facility] 10/20/23 RHAtrial fibrillation (Chronic) Congestive heart failure (Chronic) Spinal stenosis, lumbar (Acute) Osteopenia (Acute) GERD (gastroesophageal reflux disease) (Chronic) Chronic pain of left lower extremity (Acute) Arthritis (Acute) Afib (Chronic) s/p lpulm vein isolation 05/2018, XareltoLeg cramps (Acute) Venous stasis (Acute) Aortic stenosis (Chronic) congenital bi-cuspid valve Per pt. states she see's mingo hyde, at [facility] CardiologyAnemia, iron deficiency (Acute) CKD (chronic kidney disease) stage 3, GFR 30-59 ml/min (Acute) Anticoagulation adequate (Acute) XareltoOSA (obstructive sleep apnea) (Chronic) Chronic venous insufficiency (Acute) HTN (hypertension) (Chronic) Hypothyroidism (Chronic) Hyperlipidemia (Acute) Peripheral neuropathy (Acute) Leg edema (Acute) Other specified polyneuropathies (Acute) Nail dystrophy (Acute) Toe pain, left (Acute) Toe pain, right (Acute) Tinea unguium (Acute) Other specified peripheral vascular diseases (Acute) Difficulty in walking, not elsewhere classified (Acute) Medical History Family history of malignant neoplasm of digestive organ Prediabetes Spasm Sciatica of right side 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 Pain in left lower leg Aneurysm of ascending aorta Bicuspid aortic valve Pain in thoracic spine Obesity Cardiac pacemaker in situ Osteoporotic hip fracture Aortic stenosis with bicuspid valve Trigger finger, right little finger Injection: 12/18/2022History of blood transfusion Diarrhea Foot pain, right Skin fissure Sciatica of left side Breast cancer in female Hiatal hernia COVID-19 Trigger finger, left index finger Depo-Medrol injection: 08/13/2020Fatigue COLÓN (dyspnea on exertion) Cervical polyp Back pain Gout of ankle Trigger finger, right ring finger Carpal tunnel syndrome Acute back pain with sciatica Chondrocalcinosis of left knee Injected: 01/03/2020, 2PUD (peptic ulcer disease) Breast cancer left breast Surgical History History of open reduction and internal fixation (ORIF) procedure distal radius on the left 05/2016 Right ankleHistory of heart surgery (PVI) Pulmonary Vein Isolation for Afib 05/2018History of transcatheter aortic valve implantation (RONEL) 10/20/2023Left carpal tunnel syndrome S/P L ECTR: 12/31/2022Hx of inguinal hernia repair H/O lumbosacral spine surgery Lumbar Foraminotomy [id number] of carpal tunnel surgery of right wrist (01/24/20) History of ankle surgery right w/ screwsHistory of laminectomy Trigger finger, left little finger s/p release 05/10/2019Colonoscopy - MAC (03/17/17) Cholecystectomy Social History/Home Situation: Patient resides by herself in a multilevel home. 8 steps upon entry from garage into home. Her bedroom and bathroom are upstairs, living room and kitchen first floor and there is also a basement with the bathroom. Has 2 rollator walkers and 1 front wheel walker. She has used these devices since she took a fall last year resulting in a left proximal humeral fracture. Current Functional Limitations: Community distance ambulation Equipment Owned/DME: Front wheel walker, rollator walker Subjective: Patient complaining primarily of right sided rib and hip pain. States pain 5 out of 10 laying in bed, 8/10 at worst. She is surprised herself with her walking tolerance with manageable symptoms in her right hip. Was anxious about performing stairs but was pleased she was able to do so with manageable symptoms. Objective: General Observation: Pleasant. Sitting upright in bed. Just finished lunch. States she has been up out of bed with nursing. IV port right upper extremity antecubital fossa. Telemetry. Lidoderm patch anterior right hip Mental Status: Alert and oriented x 3 Pain: 5/10 anterior right hip and lateral ribs sitting in bed, 8/10 per report with lifting her leg in and out of bed. Vital Signs: Monitored by nursing ROM: Right Upper Extremity: Glenohumeral joint flexion 110 degrees with pain, abduction 90 degrees with pain, elbow flexion and extension within normal limits pain-free Left Upper Extremity: Grossly full in all planes pain-free Right Lower Extremity: Heel slide to 80 degrees hip flexion with pain. Active assisted 105 degrees mild pain Left Lower Extremity: Patient performs heel slide while laying in bed through full knee flexion, extension, hip flexion to 105 degrees pain-free. Ankle range of motion within normal limits. Strength: Right Upper Extremity: Glenohumeral joint flexion, abduction 4 -/5 with pain, elbow flexion extension 4/5 pain-free, good labor relations worker Left Upper Extremity: Glenohumeral joint flexion, abduction, elbow flexion and extension 4/5 pain-free, good labor relations worker Right Lower Extremity: Unable to perform straight leg raise and long sit position secondary to anterior hip pain. Seated hip flexion 3+/5 with pain, seated hip abduction 3+/5 with pain, knee flexion 4/5, knee extension 4/5, ankle dorsiflexion plantarflexion 4/5 Left Lower Extremity: 4/5 throughout left lower extremity hip flexion, hip abduction, knee flexion, knee extension and ankle plantarflexion and dorsiflexion. Sensation: Reports intact sensation bilateral upper and lower extremities Bed Mobility/Transfers: Supine?sit: Min assist x 1 with head of bed 45 degrees. Assistance for positioning of right lower extremity secondary to right hip pain Sit?stand: To front wheel walker with min assist x 1 with verbal cues for hand placement Stand?sit: Standby assist from front wheel walker Sit?supine: Min assist x 1 with assistance for positioning right lower extremity into bed. Gait: Patient ambulates with contact-guard and front wheel walker 70 feet x 2 with sitting break in PT office. She negotiated mock stairs with standby assist and using both upper extremities for assistance on railing. Used step to pattern ascending with left and descending with right. Balance: Static Sitting: Good Dynamic Sitting: Good Static Standing: Fair Dynamic Standing: Fair Special Tests: Mobility Limitations Standardized Measure [facility] AM-PAC 6 clicks Basic Mobility Inpatient Short Form: Raw Score: 18 Standardized Score: [] CMS Score: 46.58% Informed Consent/Education: Patient instructed in purpose of PT consult and plan of care. Assessment: Patient is a 79 year old female eferred to physical therapy services with the diagnosis of syncope. Patient presents with clinical signs and symptoms consistent with above diagnosis as demonstrated by the following impairment level findings: Motor function, muscle performance and range of motion associate with connective tissue dysfunction and localized inflammation. Impairments are contributing to the following functional limitations: AMPA score. Patient presents with clinical signs and symptoms consistent with current/admitting diagnoses that have resulted to mobility limitations, gait instability, generalized weakness, and overall ADL decline as demonstrated by the following impairment level findings: 1. Decreased strength to R UE/LE major muscle groups 2. Impaired standing balance 3. Impaired activity tolerance 4. Pain in R hip Impairments are contributing to the following functional limitations: 1. Decline in bed mobility skills 2. Decline in transfer skills 3. Difficulty with ambulation without assistive device and physical assistance 4. Increased completion time for mobility ADL performance 5. Increased risk for falls 6. Difficulty with managing steps alone safely Patient is assessed as a 36689 moderate complexity based on the following: History: 79-year-old female with past medical history as indicated above Examination: Demonstrable impairment in strength, balance, and mobility level with underlying impairments and functional limitations as exhibited above as well as deficit score of 46.58% utilizing the [facility] Mobility Inpatient Short Form Presentation: Stable Decision Makin low complexity Goals: Goals X1 week 1. Supine-Sit independent 2. Sit-Supine independent 3. Sit-Stand independent 4. Stand-Sit independent with FWW 5. Bed-Chair independent with FWW 6. Chair-Bed independent with FWW 7. Independent gait on level surface with use of with SPC for at least 300 feet without report of pain nor dyspnea 8. Good static and dynamic standing balance/tolerance Plan of Care/Treatment Plan: 1-2x/day, 7 days/week x 1 week. Plan of care has been reviewed with the MULTIFOCAL BUTTON INSPECTOR providing the service under Physical Therapy direction. Initiate Physical Therapy intervention for pain management as needed, strengthening, bed mobility, transfers, gait, stairs, balance training, and use of assistive device. Plan of Care/Treatment Plan: 1-2x/day, 7 days/week x 1 week. Plan of care has been reviewed with the MULTIFOCAL BUTTON INSPECTOR providing the service under Physical Therapy direction. Initiate Physical Therapy intervention for strengthening, bed mobility, transfers, gait, stairs, balance training, use of assistive device. DISCHARGE RECOMMENDATIONS: [] [] Home with no services [] X Home with services HHPT vs out patient PT [] Home with outpatient PT [] [] SNF for continued rehabilitation [] [] Snf Care [] [] SNF versus LTC based on ability to participate and progress [] TREATMENT CODE/TIME: 80896 initial evaluation 40 minutes [id number] Thank you for this consult. Dario Kruger PT, DPT Disclaimer: This note was created using [facility] voice recognition software. It was reviewed for major content. However, there may be multiple small discrepancies and errors due to the voice recognition aspects of the software.
[2024-09-10 13:27] VITALS: BP 117/74; PULSE 104; RESP 16; TEMP 36.2; O2SAT 97
[2024-09-10 13:52] LABS: Iron 61 ug/dL (50-170); Total Iron Binding Capacity 303 ug/dL (250-450); Transferrin Sat 20 % (15-50)
--- NOTE | 2024-09-10 14:55 | PDOC.CMIN ---
Date of service: 09/10/24 Time of Service: 14:55 Care Management Initial Assmt Initial Assessment Reason for Hospitalization: syncope Functional Status/Living Situation Patient Presentation: Alma Delia presented to the ED yesterday afternoon. She woke feeling well, and was doing some laundry, and she woke up on the floor. She has no recollection of what happened. She has a small laceration on her head, CT negative, and has bruises on her right shoulder and right wrist. She was admitted for cardiac monitoring. Alma Delia has a hx of afib. She has a pacemaker and is also s/p TAVR. Alma Delia was lying in bed when CM met with her this afternoon. She stated that she was tired, but very pleasant. She had just worked with PT who recommends HH vs outpatient PT. Alma Delia prefers outpatient. Alma Delia stated that she is feeling pretty good. She is a bit sore all over, but especially the right hip. She was wishing that she could go home this afternoon, but the provider wants to keep her for continued monitoring. Alma Delia grew up in [place], but has lived in [place] for >10years. She loves it here. 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) Instrumental Activities of Daily Living (ADLs): Independent Medications Medication Management: No Issues/Barriers identified Physical Functioning/Mobility Assistive Device: uses a FWW and also has a cane Advance Directives Advance Directives: Do you have an Advance Directive: Y 07/21/23 10:14 AD On File at [facility]: N 07/21/23 10:14 Date Asked 09/09/24 09/09/24 13:09 AD Date Reviewed COLST On File at [facility] COLST Date Scanned Code Status Resuscitation Status Full Code Portal Pt does not currently have a portal and education provided: Yes Insurance Coverage/Financial Issues Insurance: Medicare Part A & B BC/BS Out of State Care Team Visit Care Team Role Provider Type Cynthia Craig APRN MD [facility] STAFF PHYSICIAN Ana Her MD Primary Care Provider MD [facility] STAFF PHYSICIAN InPatient [facility]jelio Silva Other Providers OTHER Cristofer Tang MD Emergency Provider [facility] STAFF PHYSICIAN Clayton Ordonez MD Admit Provider [facility] STAFF PHYSICIAN Attending Provider Other: cardiology - [facility] Discharge Potential Discharge Needs: Consult Consult Services Needed: Cardiology (provider is reaching out to [facility] cardiology. Alma Delia is scheduled for a cardioversion on 09/23), PCP F/U Appt and Other Anticipated Barriers to Discharge: None Identified Patient/Family Education Needs: Review discharge instructions, discuss Ask Me Three Transportation: Private vehicle (most often uses [facility], but thinks her son will drive her home) Plan: Anticipate that Alma Delia will be discharged home with new orders for outpatient PT. She will be ordered a zio patch prior to discharge. Alma Delia will f/u with her [facility] stock unloader for cardioversion on 09/23. Alma Delia will f/u with her PCP and continue per her plan of care. She will likely be transported home by her son. CM will continue to follow and to adjust the plan as needed. Social Determinants of Health Screening Social Determinants of health last assessed in clinic: 09/10/24 Will the Patient Participate in the Screening?: Yes Do you worry about having a steady place to live?: yes What is your living situation today?: I have housing today, but am worried about losing it Problems where you live: no known problems In the past 12 months, have you had to go without electric, gas, oil or water in your home?: no 1. Within the past 12 months, we worried whether our food would run out before we got money to buy more.: Don't know/refused 2. Within the past 12 months, the food we bought just didn't last and we didn't have money to get more.: Don't know/refused Has lack of transportation kept you from medical appointments or from doing things needed for daily living?: yes Has anyone in your life made you feel unsafe or unsupported?: no How hard is it for you to pay for the very basics like food, housing, medical care, and heating? Would you say it is:: Not hard at all Do you want help finding or keeping work or a job?: I do not need or want help If for any reason you need help with day-to-day activities such as bathing, preparing meals, shopping, managing finances, etc., do you get the help you need?: I don?t need any help How often do you feel lonely or isolated from those around you?: Never Do you speak a language other than Serbian at home?: No Does the patient want assistance with any of the above?: No Health Related Social Needs Health related social needs: housing instability, housed, with risk of homelessness (Z59.811) and transportation insecurity (Z59.82) Health related social needs details: [facility] All Active Problems (Updated 09/10/24 @ 14:35 by Cynthia Craig APRN) Discharge planning issues (Acute) Arrhythmia, AV node (Acute) Hematuria (Acute) Chronic pain (Chronic) Hematoma of right parietal scalp (Acute) Syncope (Chronic) Fall (Acute) Status post cardiac pacemaker procedure (Acute) placed at [facility] 10/22/23 Medtronic dual champe4 Lesion of left upper eyelid (Acute) Mechanical low back pain (Acute) Lumbar spondylosis (Acute) Postlaminectomy syndrome (Acute) Lumbar radiculitis (Acute) Macrocytic anemia (Acute) S/P TAVR (transcatheter aortic valve replacement) (Acute) 10/20/23 [facility] 10/20/23 [facility] Atrial fibrillation (Chronic) Congestive heart failure (Chronic) Spinal stenosis, lumbar (Acute) Osteopenia (Acute) GERD (gastroesophageal reflux disease) (Chronic) Chronic pain of left lower extremity (Acute) Arthritis (Acute) Afib (Chronic) s/p lpulm vein isolation 05/2018, Xarelto Leg cramps (Acute) Venous stasis (Acute) Aortic stenosis (Chronic) congenital bi-cuspid valve Per pt. states she see's mingo hyde, at [facility] Anemia, iron deficiency (Acute) CKD (chronic kidney disease) stage 3, GFR 30-59 ml/min (Acute) Anticoagulation adequate (Acute) Xarelto RACHAEL (obstructive sleep apnea) (Chronic) Chronic venous insufficiency (Acute) HTN (hypertension) (Chronic) Hypothyroidism (Chronic) Hyperlipidemia (Acute) Peripheral neuropathy (Acute) Leg edema (Acute) Other specified polyneuropathies (Acute) Nail dystrophy (Acute) Toe pain, left (Acute) Toe pain, right (Acute) Tinea unguium (Acute) Other specified peripheral vascular diseases (Acute) Difficulty in walking, not elsewhere classified (Acute) Medical History Family history of malignant neoplasm of digestive organ Prediabetes Spasm Sciatica of right side 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 Pain in left lower leg Aneurysm of ascending aorta Bicuspid aortic valve Pain in thoracic spine Obesity Cardiac pacemaker in situ Osteoporotic hip fracture Aortic stenosis with bicuspid valve Trigger finger, right little finger Injection: 12/18/2022 History of blood transfusion Diarrhea Foot pain, right Skin fissure Sciatica of left side Breast cancer in female Hiatal hernia COVID-19 Trigger finger, left index finger Depo-Medrol injection: 08/13/2020 Fatigue COLÓN (dyspnea on exertion) Cervical polyp Back pain Gout of ankle Trigger finger, right ring finger Carpal tunnel syndrome Acute back pain with sciatica Chondrocalcinosis of left knee Injected: 01/03/2020, 09/09/2021 PUD (peptic ulcer disease) Breast cancer left breast Surgical History History of open reduction and internal fixation (ORIF) procedure distal radius on the left 05/2016 Right ankle History of heart surgery (PVI) Pulmonary Vein Isolation for Afib 05/2018 History of transcatheter aortic valve implantation (RONEL) 10/20/2023 Left carpal tunnel syndrome S/P L ECTR: 12/31/2022 Hx of inguinal hernia repair H/O lumbosacral spine surgery Lumbar Foraminotomy L4 History of carpal tunnel surgery of right wrist (01/24/20) History of ankle surgery right w/ screws History of laminectomy Trigger finger, left little finger s/p release 05/10/2019 Colonoscopy - MAC (03/17/17) Cholecystectomy Family History Grandmother Colon cancer Mother , 66 CAD (coronary artery disease) Family history of heart failure Father , 61 Stroke Family history of stroke Sister , 58 Pneumonia Brother , secondary drug overdose age 30 Drug overdose Family history of coronary artery disease Maternal Grandfather Colon cancer Social History Smoking/Tobacco Use Status: Never Smoking risk assessment performed?: Yes Alcohol Intake: current Alcohol Intake frequency: a few times a week Alcohol type: beer, wine and hard liquor Drug use: Never Substance use type: does not use Household members: none Housing: house Number of Children: 2 current occupation: Retired Current gender identity: female What type of physical activity do you participate in: independent ambulation Do you feel safe at home: Yes Do you feel safe in your relationship?: Yes Readmission Within the Past 30 Days Yes or No: No
[2024-09-10] MEDS: Rivaroxaban 10 MG TABLET 20 MG PO (16:20)
[2024-09-10 19:24] VITALS: BP 114/71; PULSE 104; RESP 19; TEMP 36.8; O2SAT 96
[2024-09-10] MEDS: Atorvastatin 40 MG TAB PO (20:09)
[2024-09-10 22:59] VITALS: BP 122/79; PULSE 102; RESP 16; TEMP 36.3; O2SAT 99
[2024-09-11 03:30] VITALS: BP 116/74; PULSE 104; RESP 18; TEMP 37.4; O2SAT 94
[2024-09-11] MEDS: Levothyroxine 75 MCG TAB PO (06:01)
[2024-09-11 06:23] LABS: ALT 16 U/L (14-59); AST 16 U/L (15-37); Albumin 3.4 g/dL (3.4-5.0); Alkaline Phosphatase 61 U/L (46-116); Anion Gap 5.2 mmol/L (3-11); BUN 20 mg/dL (7-18); Bilirubin, Total 1.3 mg/dL (0.2-1.0); CO2 29.8 mmol/L (21.0-32.0); CREATININE 0.9 mg/dL (0.55-1.02); Calcium 9.4 mg/dL (8.5-10.1); Chloride 102 mmol/L (98-107); Estimated GFR 65.03 (mL/min/1.73m2); Glucose 116 mg/dL (74-106); Potassium 3.7 mmol/L (3.5-5.1); Sodium 137 mmol/L (136-145); Total Protein 6.3 g/dL (6.4-8.2)
[2024-09-11 07:23] VITALS: BP 114/70; PULSE 96; TEMP 36; O2SAT 94
[2024-09-11] MEDS: Omnipaque 350 MG/ML 100 ML BTL IJ (08:02)
[2024-09-11] MEDS: Normal Saline - Diluent 50 ML VIAL IJ (08:07)
--- NOTE | 2024-09-11 08:15 | DI.CT_ITS ---
Exam(s) CT BRAIN NECK CTA EXAM: CT BRAIN NECK CTA CLINICAL HISTORY: syncope. TECHNIQUE: Imaging Protocol: Axial CT angiography was performed with multi-slice acquisition and mu lti-planar and/or 3D reconstructions. CONTRAST MATERIAL: Intravenous: Omnipaque 350 Contrast volume:70 COMPARISON: CT CT HEAD CERVICAL SPINE WO from 09/09/2024 FINDINGS: CTA Neck W: Aortic arch anatomy: The left vertebral artery originates as an independent vessel off of the aortic arch (instead of conventional takeoff point off of the left subclavian artery). The diameter the asc ending thoracic aorta is upper normal. The aortic arch exhibits a pseudo-coarctation configuration. Diameter of the partially visualized descending thoracic aorta is slightly prominent. Anterior circulation: Both common carotid arteries ascend with normal luminal diameters. The exhibit mild tortuosity. At the level the carotid bulbs and proximal internal carotid arteries there is minimal plaque without hemodynamically significant stenosis evident. Above this level the internal carotid arteries are patent in the upper neck and skull base-carotid ca nals. Posterior circulation: The left vertebral artery originates as an independent vessel off the aortic arch, as described above . Both vertebral arteries ascend with normal/equal diameters and with no evidence of significant fernandez nosis at their origins nor within these vessels nor evidence of dissection. Both vertebral arteries exhibit normal luminal diameters within the foramen transversarium. No significant stenosis nor dissection. Both vertebral arteries contribute to the formation of the basilar artery at the skull base. These n o vascular calcification in the vertebral arteries at the skull base level. CTA Brain W: Anterior circulation: Both internal carotid arteries are patent in the skull base-carotid canals as well as within the cave rnous sinuses. The supraclinoid aspects of the ICAs are patent. Both A1 segments are patent as are the anterior cer ebral arteries and there is no evidence of aneurysm at the level of the anterior communicating artery . Both middle cerebral arteries are patent with no evidence of significant stenosis nor intraluminal th rombus. There also no aneurysms of these vessels. Posterior circulation: The basilar artery ascends in the midline. Distally it gives off patent bilateral superior cerebella r arteries. Above this level the basilar artery terminates as patent bilateral posterior cerebral arteries. There is no evidence of aneurysm at the tip of the basilar artery nor elsewhere in the jsisne-uv-Stac is. CT BRAIN: Right scalp hematoma and laceration are again noted over the right parietal bone. There is no skull fracture. There is no evidence of intracranial hemorrhage, mass effect, or shift of midline structures. There are no extra-axial fluid collections. Ventricles are not enlarged or shifted. There are no ring enh ancing lesions in the brain and no abnormal meningeal enhancement. IMPRESSION: 1. Patent carotid arteries in the neck. No hemodynamically significant stenosis. 2. Patent vertebral arteries. The left vertebral artery is noted to originate as an independent vess el off the aortic arch. 3. Patent intracranial arteries. No significant stenosis of the intracranial vessels and no evidence of aneurysms. 4. No evidence of intracranial hemorrhage nor acute infarct. No ring enhancing lesions in the brain. RADIATION DOSE DELIVERED: 2,196.84mGy.cm Total DLP DATA REPOSITORY: All CT scans at this facility are submitted to the National Radiology Data Registry (NRDR) Dose Index Registry (DIR) with the [employer] (ACR). RADIATION OPTIMIZATION: All CT scans at this facility use at least one of these dose optimization te chniques: automated exposure control; mA and/or kV adjustment per patient size (includes targeted exa ms where dose is matched to clinical indication); or iterative reconstruction.
[2024-09-11] MEDS: Acetaminophen 500 MG TAB 1000 MG PO ×2 (08:25→13:06)
--- NOTE | 2024-09-11 08:47 | DI.VRAD_ITS ---
PROCEDURE INFORMATION: Exam: CTA Head Without And With Contrast, Arteriography Exam date and time: 09/11/2024 7:58 AM Age: 79 years old Clinical indication: Other: Sycope TECHNIQUE: Imaging protocol: Computed tomographic angiography of the head without and with contrast. Exam focused on the arteries. 3D rendering (Not supervised by radiologist): MIP and/or 3D reconstructed images were created by the technologist. Radiation optimization: All CT scans at this facility use at least one of these dose optimization techniques: automated exposure control; mA and/or kV adjustment per patient size (includes targeted exams where dose is matched to clinical indication); or iterative reconstruction. Contrast material: OMNIPAQUE 350; Contrast volume: 70 ml; Contrast route: INTRAVENOUS (IV); COMPARISON: CT HEAD CERVICAL SPINE WO 09/09/2024 1:08 PM FINDINGS: ANTERIOR CIRCULATION: Right internal carotid artery: Intracranial segment is patent with no significant stenosis or occlusion. No aneurysm. Right middle cerebral artery: No occlusion or significant stenosis. No aneurysm. Right anterior cerebral artery: No occlusion or significant stenosis. No aneurysm. Left internal carotid artery: Intracranial segment is patent with no significant stenosis. No aneurysm. Left middle cerebral artery: No occlusion or significant stenosis. No aneurysm. Left anterior cerebral artery: No occlusion or significant stenosis. No aneurysm. POSTERIOR CIRCULATION: Right vertebral artery: No occlusion or significant stenosis. No aneurysm. Left vertebral artery: No occlusion or significant stenosis. No aneurysm. Basilar artery: No occlusion or significant stenosis. No aneurysm. Right posterior cerebral artery: No occlusion or significant stenosis. No aneurysm. Left posterior cerebral artery: No occlusion or significant stenosis. No aneurysm. HEAD: Brain: Generalized atrophy. No hemorrhage. Unremarkable white matter. No mass effect. Cerebral ventricles: Normal. No ventriculomegaly. Bones: Unremarkable. No acute fracture. Paranasal sinuses: Visualized sinuses are normal. No fluid levels. Mastoid air cells: Visualized mastoids are normal. No mastoid effusion. Soft tissues: Right scalp laceration and contusion. IMPRESSION: 1. No large vessel occlusion. 2. Superficial scalp injury without intra-cranial hemorrhage or acute fracture. PROCEDURE INFORMATION: Exam: CTA Neck Without And With Contrast Exam date and time: 09/11/2024 7:58 AM Age: 79 years old Clinical indication: Other: Sycope TECHNIQUE: Imaging protocol: Computed tomographic angiography of the neck without and with contrast. Exam focused on the cervical segments of the vasculature. 3D rendering (Not supervised by radiologist): MIP and/or 3D reconstructed images were created by the technologist. Radiation optimization: All CT scans at this facility use at least one of these dose optimization techniques: automated exposure control; mA and/or kV adjustment per patient size (includes targeted exams where dose is matched to clinical indication); or iterative reconstruction. Contrast material: OMNIPAQUE 350; Contrast volume: 70 ml; Contrast route: INTRAVENOUS (IV); COMPARISON: CT HEAD CERVICAL SPINE WO 09/09/2024 1:08 PM FINDINGS: Right common carotid artery: No stenosis. No dissection or occlusion. Right internal carotid artery: No stenosis of the extracranial segment. No dissection or occlusion. Right external carotid artery: No occlusion or stenosis of the origin. Left common carotid artery: No stenosis. No dissection or occlusion. Left internal carotid artery: No stenosis of the extracranial segment. No dissection or occlusion. Left external carotid artery: No occlusion or stenosis of the origin. Right vertebral artery: No stenosis. No dissection or occlusion. Left vertebral artery: No stenosis. No dissection or occlusion. Soft tissues: Normal. No significant soft tissue swelling. Bones/joints: No acute fracture. IMPRESSION: No vascular occlusion or stenosis in the neck. REFERENCES: NASCET CRITERIA. The degree of stenosis in the cervical segment of the internal carotid artery is based on NASCET criteria. Normal is no stenosis. Mild is less than 50% stenosis. Moderate is 50-69% stenosis. Severe is 70% to 99% stenosis. Total occlusion is no detectable patent lumen. Dictated and Authenticated by: Argentina Fernandez MD. Orderin Rafa Marie MD
[2024-09-11] MEDS: Normal Saline Flush 10 ML SYR IVP (08:53)
[2024-09-11] MEDS: Lidocaine 5% Patch 2 PATCH TP (08:53)
[2024-09-11] MEDS: Cyanocobalamin 500 MCG TAB 1000 MCG PO (08:54)
[2024-09-11] MEDS: Allopurinol 100 MG TAB PO (08:54)
[2024-09-11] MEDS: Ascorbic Acid 500 MG TAB PO (08:54)
[2024-09-11] MEDS: Gabapentin 300 MG CAP PO (08:54)
[2024-09-11] MEDS: Calcium Carbonate 1.5 GM TAB PO (08:54)
[2024-09-11] MEDS: Cholecalciferol (Vitamin D3) 1,000 UNIT TAB 2000 UNITS PO (08:54)
[2024-09-11] MEDS: Spironolactone 25 MG TAB PO (08:54)
[2024-09-11] MEDS: Magnesium Oxide 400 MG TAB PO (08:54)
[2024-09-11] MEDS: Carvedilol 25 MG TAB PO (08:55)
[2024-09-11] MEDS: Furosemide 40 MG TAB PO (08:55)
[2024-09-11] MEDS: Colestipol 1 GM TAB PO (09:05)
--- NOTE | 2024-09-11 11:05 | PT.INTREAT ---
PT Notes Visit Reasons: Syncope Inpatient Physical Therapy Treatment Note [facility] Date: 01/12/2025 - morning session PRECAUTIONS: Fall precautions, activity as tolerated, standard SUBJECTIVE: Alma Delia states she is ready to participate in physical therapy treatment today. We discussed attempting a full flight of stairs which she is agreeable to. She is aware that this is necessary as she has multiple stairs (8) into the house as well as bathroom in the basement on the 2nd floor. She admits she is feeling as though she is gaining more control of right lower extremity when transitioning in bed as well as sitting bedside to stand. OBJECTIVE: ? PAIN: 4/10 sitting in bed localized to right shoulder, ribs and anterior thigh/hip. Patient did receive Tylenol 1 hour before treatment as well as Lidoderm patch over anterior superior right thigh/hip. She rates her pain in standing and walking 8/10 but is able to do so without significant antalgia. Localizes the pain to be more so in the ribs and hip. VITALS: Monitor closely via nursing ? Therapeutic Activities (35999b4): Direct one-on-one instruction in dynamic activities to improve functional performance. ? BED MOBILITY/TRANSFERS? Rolling L/R: I Supine-sit: CGA x1 to FWW ? Sit-supine: SBA from FWW? Sit-stand: SBA to FWW ? Stand-sit: SBA from FWW ? Performed sitting bedside activities such as marching x 10, hip abduction with manual resistance x 10 isometrically, hip adduction with manual resistance x 10 isometric, long arc quads x 10 bilateral, seated heel raises x 10. Provided skilled cues and instruction on performance and technique throughout. Gait Training (64058y0): Direct one-on-one instruction and skilled instruction in: X employing an assistive device X movement sequencing with stair negotiation ascending leading with left and descending leading with right with contact-guard x 1 and use of railing and left upper extremity. She performed full flight of stairs up and down 12 steps. X turning and movement with proper form X Provided verbal cues for equipment management and technique avoidance of holding onto front wheel walker to perform sit to stand transfer: GAIT? Assistive Device: Front wheel walker? Weight bearing: Full weightbearing Assist: Standby assist for ambulation 250 feet with front wheel walker and no rest break ? STAIRS: Full flight 12 steps up and down with contact-guard ascending with left, descending with right with use of railing on left side. ? ASSESSMENT: Considering her complaints of 8 out of 10 pain she really did not display any pain behaviors or antalgia. Was stable with stair negotiation up and down with use of railing. When medically stable and discharged from this facility would recommend outpatient PT which she is agreeable to for further lower extremity strengthening balance training activities and cardiovascular exercise. PLAN: Will follow-up with patient in the afternoon if she is not discharged. It sounds as though patient is being discharged after lunchtime to home. TREATMENT CODE/TIME: 87004/36004. 30 minutes direct one-on-one care 930?10:00 DISCHARGE RECOMMENDATION: Outpatient rehab. PM Session: 12:30-12:55 PRECAUTIONS: Fall precautions, activity as tolerated, standard SUBJECTIVE: Alma Delia continues to report improvements. Had good rest after morning session. Had a good lunch. Feels energized. No complaints of hip pain. Still some mild right sided rib pain. OBJECTIVE: ? PAIN: 4/10 sitting in bed localized to right shoulder, ribs and anterior thigh/hip. Patient did receive Tylenol 1 hour before treatment as well as Lidoderm patch over anterior superior right thigh/hip. She rates her pain in standing and walking 8/10 but is able to do so without significant antalgia. Localizes the pain to be more so in the ribs and hip. VITALS: Monitor closely via nursing ? Therapeutic Activities ([id number]): Direct one-on-one instruction in dynamic activities to improve functional performance. ? BED MOBILITY/TRANSFERS? Rolling L/R: I Supine-sit: CGA x1 to FWW ? Sit-supine: SBA from FWW? Sit-stand: SBA to FWW ? Stand-sit: SBA from FWW ? Instruction in home program below. Access Code: [email or web address] URL: [email or web address] Date: 09/11/2024 Prepared by: Dario Kruger Exercises - Supine Ankle Pumps - 1 x daily - 7 x weekly - 3 sets - 10 reps - Gluteal Sets - 1 x daily - 7 x weekly - 3 sets - 10 reps - Supine Hip Abduction AROM - 1 x daily - 7 x weekly - 3 sets - 10 reps - Seated Long Arc Quad - 1 x daily - 7 x weekly - 3 sets - 10 reps Provided skilled cues and instruction on performance and technique throughout. Gait Training (28670c6): Direct one-on-one instruction and skilled instruction in: X employing an assistive device X movement sequencing with stair negotiation ascending leading with left and descending leading with right with contact-guard x 1 and use of railing and left upper extremity. She performed full flight of stairs up and down 12 steps. X turning and movement with proper form X Provided verbal cues for equipment management and technique avoidance of holding onto front wheel walker to perform sit to stand transfer: GAIT? Assistive Device: Front wheel walker? Weight bearing: Full weightbearing Assist: Independent ambulation 250 feet x2 with front wheel walker and 1 rest break in between each 250 foot session. Sitting rest for 3 minutes.? STAIRS: Full flight 12 steps up and down with standby assist ascending with left, descending with right with use of railing on left side. ? TREATMENT CODE/TIME: 88159/09239. 25 minutes direct one-on-one care 12:30-12:55 DISCHARGE RECOMMENDATION: Outpatient rehab. Disclaimer: This note was created using [employer] voice recognition software. It was reviewed for major content. However, there may be multiple small discrepancies and errors due to the voice recognition aspects of the software.
[2024-09-11 11:39] VITALS: BP 97/70; PULSE 103; RESP 16; TEMP 36.1; O2SAT 95
[2024-09-11] MEDS: levoFLOXacin 500 MG, levoFLOXacin 250 MG 750 MG PO (13:08)
--- NOTE | 2024-09-11 13:45 | DSE_ITS ---
Date of service: 09/11/24 Time of Service: 13:45 DS: Diagnosis Discharge Diagnosis (1) Syncope: Status: Chronic (2) Hematoma of right parietal scalp: Status: Acute (3) Fall: Status: Acute (4) Macrocytic anemia: Status: Acute (5) S/P TAVR (transcatheter aortic valve replacement): Status: Acute (6) Hematuria: Status: Acute (7) Atrial fibrillation: Status: Chronic (8) Congestive heart failure: Status: Chronic (9) GERD (gastroesophageal reflux disease): Status: Chronic (10) CKD (chronic kidney disease) stage 3, GFR 30-59 ml/min: Status: Acute (11) HTN (hypertension): Status: Chronic (12) Hypothyroidism: Status: Chronic (13) Hyperlipidemia: Status: Acute (14) Chronic pain: Status: Chronic (15) Urinary tract infection: Status: Acute Discharge Plan Disposition Patient Disposition: Home Condition: Stable Discharge Details Reason For Visit: Syncope Admit Date/Time: 09/09/24 14:47 Admit Provider: Clayton Ordonez Attending Provider: Clayton Ordonez Primary Care Provider: Ana Her [facility] Course Hospital Course: This is a 79-year-old female patient past medical history significant for atrial fibrillation anticoagulated on rivaroxaban, pacemaker, status post TAVR, heart failure preserved ejection fraction who presented to the emergency department after a syncopal episode she suffered at home. Workup in the emergency department was negative for any acute fractures or injuries from her fall she did have a hematoma noted on imaging to her parietal scalp. Blood work unremarkable with negative serial troponins EKG nonischemic. She was at her baseline neurologically and hemodynamically stable. She is followed by cardiology at [facility] in [place] and had a failed ablation in June with planned cardioversion September 23 at [facility]. She was admitted under hospitalist services and hemodynamically remained stable with no episodes of syncope or dysrhythmias on telemetry. She was safely reambulated with physical therapy with recommendations for outpatient physical therapy. Her urine culture did return positive for Pseudomonas. She did report symptoms of dysuria and will be discharged on levofloxacin 750 mg daily for 5 days while sensitivities are pending. Plan was for her to receive a cardiac event recorder at discharge which has been placed. She is being discharged to home by private vehicle with her son. She will keep her cardiology outpatient follow-up appointment. Cardiac event recorder placed with instruction. Levofloxacin sent to her pharmacy first dose given prior to discharge. Discussed with Dr Fisher Home Meds and New Rx's Prescriptions: New levofloxacin 750 mg Tablet 750 mg PO QAM Qty: 4 0RF Continued calcium carbonate 600 mg calcium (1,500 mg) Tablet 600 mg PO DAILY ascorbic acid (vitamin C) [Vitamin C] 500 mg Tablet 500 mg PO DAILY magnesium 250 mg tablet 400 mg PO BID tolnaftate [Antifungal (tolnaftate)] 1 % cream 1 applic topical DAILY Qty: 30 0RF cholecalciferol (vitamin D3) 2,000 unit tablet 2,000 unit PO DAILY spironolactone 25 mg tablet 25 mg PO DAILY Xarelto 20 mg tablet 20 mg PO DAILY Rx Instructions: must administer with evening meal gabapentin 300 mg capsule 300 mg PO BID Rx Instructions: no abrupt cessation cyanocobalamin (vitamin B-12) [Vitamin B-12] 100 mcg tablet 1,000 mcg PO DIRECTED allopurinol 100 mg tablet 100 mg PO DAILY Patient Comments: 02.11.17 Pt states down to Qday.HE atorvastatin [Lipitor] 40 MG tablet 40 mg PO QPM colestipol 1 gram tablet 1 g PO BID PRN PRN (Reason: Dx microscopic colitis) acetaminophen 500 mg tablet 1,000 mg PO TID PRN (Reason: Pain) Qty: 90 0RF carvedilol 25 mg tablet 25 mg PO BID Qty: 60 2RF Rx Instructions: must administer with a meal/food furosemide 80 mg tablet 40 mg PO DAILY levothyroxine 75 mcg tablet 75 mcg PO DAILY tramadol 50 mg tablet 50 mg PO Q6H PRNQty: 8 0RF Discharge Instructions Instructions: Syncope (Fainting) (DC), Urinary tract infection - Discharge instructions Additional Instructions: wear event recorder as directed finish antibiotics as prescribed. push fluids to stay well hydrated. Stand Alone Forms: Nursing Discharge Form Referrals: Ana Her MD [Primary Care Provider] - (I called your PCP office and left a voicemail for the office to give you a call to make a follow up appointment for within 1 to 2 weeks.) [facility] [Provider Group] (Outpatient physical therapy) Activity:: Activity as Tolerated Equipment/Supplies:: No Equipment Needed Diet:: As Tolerated Discharge Orders Discharge Orders: Discharge Order (Routine); Ordered 09/11/24 Ordered By: Joy Alejandro Other Ambulatory Orders: Cardiac Event Recorder (Routine) Timeframe: [id number] Facility: [facility] - Location: Respiratory Therapy Ordered By: Cynthia Craig DS: Summary Time Spent with Patient providing and/or coordinating discharge services: Greater than 30 minutes Status at Discharge Functional status at discharge: uses cane/walker Overall status at discharge: patient is back to baseline Mental Status: mental status grossly normal Speech and Movement: speech and movement normal Mood: congruent mood Affect: normal affect Quality:SDOH Health Related Social Needs: Health related social needs housing instability, house d, with risk of homelessness (Z59.811), transportation insecurity (Z59.82) Health related social needs details RCT transpo. Health related social needs details: RCT transpo. Exam Narrative Exam Narrative: Well-appearing female of stated age no acute distress sitting up in her recliner neurologic she is awake alert oriented no focal deficits psychiatric appropriate mood and affect skin [place] warm dry well-perfused cardiovascular irregular rate rhythm controlled atrial fibrillation respirations even and unlabored abdomen benign moves all extremities no peripheral edema skin with no rashes or lesions Psych Mental Status: mental status grossly normal Speech and Movement: speech and movement normal Mood: congruent mood Affect: normal affect DS: Data Vitals/I&O Vitals and I&O: Vital Signs Temperature 36.1 C L 09/11/24 11:39 Temperature Source Temporal Artery Scan 09/11/24 11:39 Pulse 103 H 09/11/24 11:39 Pulse Rhythm Regular 09/09/24 15:47 Pulse 104 H 09/09/24 15:20 Respiratory Rate 16 09/11/24 11:39 Respiratory Effort Normal, Non-Labored 09/09/24 15:47 Respiratory Depth Normal 09/09/24 15:47 Respiratory Pattern Normal 09/09/24 15:47 Blood Pressure 97/70 L 09/11/24 11:39 Blood Pressure Mean 79 09/11/24 11:39 Blood Pressure Position Sitting 09/09/24 12:08 Pulse Oximetry 95 09/11/24 11:39 Oxygen Delivery Method Room Air 09/11/24 11:39 Oxygen Flow Rate 0 09/11/24 11:39 Pain Level 4 09/11/24 13:06 Comment Pt reports CPAP use at home. 09/10/24 22:59 Intake & Output 09/10/24 09/11/24 09/11/24 23:59 11:59 23:59 Intake Total 1310 / 1430 240 / 240 Output Total 1200 / 1850 600 / 1300 700 / 1300 Balance 110 / -420 -360 / -1060 -700 / -1060 Intake: IV 830 / 830 Oral 480 / 600 240 / 240 Output: Urine 1200 / 1850 600 / 1300 700 / 1300 Other: Urine Color Dark Kan Dark Red Yellow Urine Appearance Clear Clear Cloudy Urine Odor Strong Strong Comment Patient urine was clear and dark kan in color, with a stron odor. Patient's urine is clear and brown in color, blood was in the urine, and with a strong odor. Stool Size Small Stool Characteristics Soft Data Completed and Pending Labs on day of discharge: Labs from last 24 hours 09/11/24 05:30: Sodium 137, Potassium 3.7, Chloride 102, Carbon Dioxide 29.8, Anion Gap 5.2, BUN 20 H, Creatinine 0.9, Est GFR (CKD-EPI 2020) 65.03, Glucose 116 H, Calcium 9.4, Total Bilirubin 1.3 H, AST 16, ALT 16, Alkaline Phosphatase 61, Total Protein 6.3 L, Albumin 3.4 09/10/24 11:58: Iron 61, TIBC 303, Transferrin % Sat 20 09/10/24 10:00: Urine Color Red, Urine Clarity Cloudy, Urine pH 6.0, Ur Specific [place] 1.020, Urine Protein >=300 H, Urine Ketones Negative, Urine Blood Large H, Urine Nitrite Negative, Urine Bilirubin Negative, Urine Urobilinogen 0.2, Ur Leukocyte Esterase Large H, Urine RBC >50 H, Urine WBC , Ur Epithelial Cells , Urine Bacteria , Ur Culture Indicated? C&S Done As Ordered, Urine Glucose Negative Preliminary micro results at discharge 09/10/24 10:00 Urine - Voided Urine Culture - Preliminary Pseudomonas aeruginosa [facility] All Active Problems (Updated 09/11/24 @ 14:41 by Joy Alejandro NP) Urinary tract infection (Acute) Discharge planning issues (Acute) Arrhythmia, AV node (Acute) Hematuria (Acute) Chronic pain (Chronic) Hematoma of right parietal scalp (Acute) Syncope (Chronic) Fall (Acute) Status post cardiac pacemaker procedure (Acute) placed at [facility] 10/22/23 [employer] dual champe4 Lesion of left upper eyelid (Acute) Mechanical low back pain (Acute) Lumbar spondylosis (Acute) Postlaminectomy syndrome (Acute) Lumbar radiculitis (Acute) Macrocytic anemia (Acute) S/P TAVR (transcatheter aortic valve replacement) (Acute) 10/20/[address] [facility] 10/20/23 [facility] Atrial fibrillation (Chronic) Congestive heart failure (Chronic) Spinal stenosis, lumbar (Acute) Osteopenia (Acute) GERD (gastroesophageal reflux disease) (Chronic) Chronic pain of left lower extremity (Acute) Arthritis (Acute) Afib (Chronic) s/p lpulm vein isolation 05/2018, Xarelto Leg cramps (Acute) Venous stasis (Acute) Aortic stenosis (Chronic) congenital bi-cuspid valve Per pt. states she see's mingo hyde, at [facility] Anemia, iron deficiency (Acute) CKD (chronic kidney disease) stage 3, GFR 30-59 ml/min (Acute) Anticoagulation adequate (Acute) Xarelto RACHAEL (obstructive sleep apnea) (Chronic) Chronic venous insufficiency (Acute) HTN (hypertension) (Chronic) Hypothyroidism (Chronic) Hyperlipidemia (Acute) Peripheral neuropathy (Acute) Leg edema (Acute) Other specified polyneuropathies (Acute) Nail dystrophy (Acute) Toe pain, left (Acute) Toe pain, right (Acute) Tinea unguium (Acute) Other specified peripheral vascular diseases (Acute) Difficulty in walking, not elsewhere classified (Acute) Medical History Family history of malignant neoplasm of digestive organ Prediabetes Spasm Sciatica of right side 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 Pain in left lower leg Aneurysm of ascending aorta Bicuspid aortic valve Pain in thoracic spine Obesity Cardiac pacemaker in situ Osteoporotic hip fracture Aortic stenosis with bicuspid valve Trigger finger, right little finger Injection: 12/18/2022 History of blood transfusion Diarrhea Foot pain, right Skin fissure Sciatica of left side Breast cancer in female Hiatal hernia COVID-19 Trigger finger, left index finger Depo-Medrol injection: 08/13/2020 Fatigue COLÓN (dyspnea on exertion) Cervical polyp Back pain Gout of ankle Trigger finger, right ring finger Carpal tunnel syndrome Acute back pain with sciatica Chondrocalcinosis of left knee Injected: 01/03/2020, 09/09/2021 PUD (peptic ulcer disease) Breast cancer left breast Surgical History History of open reduction and internal fixation (ORIF) procedure distal radius on the left 05/2016 Right ankle History of heart surgery (PVI) Pulmonary Vein Isolation for Afib 05/2018 History of transcatheter aortic valve implantation (RONEL) 10/20/2023 Left carpal tunnel syndrome S/P L ECTR: 12/31/2022 Hx of inguinal hernia repair H/O lumbosacral spine surgery Lumbar Foraminotomy L4 History of carpal tunnel surgery of right wrist (01/24/20) History of ankle surgery right w/ screws History of laminectomy Trigger finger, left little finger s/p release 05/10/2019 Colonoscopy - MAC (03/17/17) Cholecystectomy Family History Grandmother Colon cancer Mother , 66 CAD (coronary artery disease) Family history of heart failure Father , 61 Stroke Family history of stroke Sister , 58 Pneumonia Brother , secondary drug overdose age 30 Drug overdose Family history of coronary artery disease Maternal Grandfather Colon cancer Social History Smoking/Tobacco Use Status: Never Smoking risk assessment performed?: Yes Alcohol Intake: current Alcohol Intake frequency: a few times a week Alcohol type: beer, wine and hard liquor Drug use: Never Substance use type: does not use Household members: none Housing: house Number of Children: 2 current occupation: Retired Current gender identity: female What type of physical activity do you participate in: independent ambulation Do you feel safe at home: Yes Do you feel safe in your relationship?: Yes Time Spent with Patient Time Spent with Patient: 70-84 minutes4 Time was spent: preparing to see the patient(eg.review tests), obtaining and/or reviewing separately otained hiistory, ordering medications,tests, procedures, indepentently interpreting results and counseling the patient
--- NOTE | 2024-09-11 14:19 | RESPIRATORY ---
30 Day monitor car operator set up by RT. Patient has no further questions at this time. Nursing notified.
--- NOTE | 2024-09-11 16:10 | CMDISCH_ITS ---
Date of service: 09/11/24 Time of Service: 16:10 LACE Index Scoring Tool Questions: Length of Stay (in days): 1 Was the patient admitted via the E.D.?: Yes Comorbidities: Congestive Heart Failure and Any Tumor E.D. Visits: 1 Answers: Total Score: 10 Risk of Readmission: High Risk Care Management Discharge Plan Reason for Hospitalization: syncope Discharge Plan: Alma Delia was discharged home with no new services. It was recommended that Alma Delia attend outpatient PT. This will likely not begin until after she has her cardioversion at [facility] on 09/23. Alma Delia will f/u with her PCP and continue per her plan of care. Alma Delia was transported home by her son in a private vehicle. Patient/Family Education Needs: Review of discharge instructions, activity, limitations, and discuss Ask me 3. SDOH Health Related Social Needs: Health related social needs housing instability, house d, with risk of homelessness (Z59.811), transportation insecurity (Z59.82) Health related social needs details RCT transpo. Health related social needs details: RCT transpo.
[2024-09-12 11:11] LABS: Transferrin 241 mg/dL (201-352)
== END 2024-09-11 15:14 | disposition home or self-care (01) ==
LOC: ER 14:47 → MS 15:22
PROVIDERS: Admitting Provider Family Medicine; Emergency Provider Student in an Organized Health Care Education/Training Program; PCP Family Medicine; Responsible Provider Nurse Practitioner Acute Care; Visit Provider Family Medicine
DX: R55 Syncope and collapse (principal); S00.03XA Contusion of scalp, initial encounter; Z95.2 Presence of prosthetic heart valve; I48.11 Longstanding persistent atrial fibrillation; N39.0 Urinary tract infection, site not specified; N18.30 Chronic kidney disease, stage 3 unspecified; I13.0 Hypertensive heart and chronic kidney disease with heart failure and stage 1 through stage 4 chronic kidney disease, or unspecified chronic kidney disease; B96.5 Pseudomonas (aeruginosa) (mallei) (pseudomallei) as the cause of diseases classified elsewhere; E78.5 Hyperlipidemia, unspecified; I50.30 Unspecified diastolic (congestive) heart failure; W19.XXXA Unspecified fall, initial encounter; E03.9 Hypothyroidism, unspecified; Z95.0 Presence of cardiac pacemaker; Z79.899 Other long term (current) drug therapy; Z79.01 Long term (current) use of anticoagulants; R41.82 Altered mental status, unspecified; R31.9 Hematuria, unspecified; R51.9 Headache, unspecified; M47.816 Spondylosis without myelopathy or radiculopathy, lumbar region; D53.9 Nutritional anemia, unspecified; K21.9 Gastro-esophageal reflux disease without esophagitis; M85.80 Other specified disorders of bone density and structure, unspecified site; I87.8 Other specified disorders of veins; G47.33 Obstructive sleep apnea (adult) (pediatric); I73.89 Other specified peripheral vascular diseases; G62.9 Polyneuropathy, unspecified; Q23.81 Bicuspid aortic valve; R26.2 Difficulty in walking, not elsewhere classified; G47.419 Narcolepsy without cataplexy
CPT/HCPCS: 00123; 36415; 36416; 70496; 70498; 74177; 80048; 80053; 82550; 82962; 85027; 87077; 93005; 96374; 97110; 97116; 97161; 99285; 70450; 71260; 72125; 73110; 81003; 81015; 83540; 83550; 83735; 84466; 84484; 85025; 87086; 87186; 93010; 99223; 99233; 99239; G0378; J2270; J3490

== ENCOUNTER 2024-09-11 13:57 | Outpatient (RCR) | payer MEDICARE, BC, SELFPAY | END 2024-10-01 23:59 | disposition home or self-care (01) | LOC: RT 13:57 | PROVIDERS: PCP Family Medicine; Visit Provider Family Medicine | DX: R55 Syncope and collapse (principal) | CPT/HCPCS: 93270 ==

== ENCOUNTER 2024-09-21 14:57 | Outpatient (RCR) | payer SELFPAY ==
[2024-09-01 00:15] VITALS: BP 142/71; PULSE 58
[2024-09-02 15:44] VITALS: BP 141/60; PULSE 71
[2024-09-07 15:19] VITALS: BP 141/90; PULSE 106
== END 2024-10-01 23:59 | disposition home or self-care (01) ==
LOC: CR 14:57
PROVIDERS: PCP Family Medicine; Visit Provider Internal Medicine Cardiovascular Disease
DX: R69 Illness, unspecified (principal)

== ENCOUNTER 2024-09-27 07:14 | Outpatient (CLI) | payer MEDICARE, BC, SELFPAY ==
--- NOTE | 2024-09-27 08:25 | W.CARDEVENT ---
Date of service: 09/27/24 Time of Service: 08:25 Cardiac Event Recorder Referring Provider:: Ana Her Indications:: Syncope Cardiac Event Note: This is a cardiac event monitor. Patient was monitored for 4 days and 7 hours. Rhythm throughout was atrial flutter. Average heart rate was 96. Maximum was 115, minimum was 66. There were rare ventricular ectopic beats. There were no pauses greater than 3 seconds. There were no apparent symptoms
== END 2024-09-27 07:15 | disposition home or self-care (01) ==
LOC: CARDOPNVT 07:14
PROVIDERS: PCP Family Medicine; Visit Provider Internal Medicine Cardiovascular Disease
DX: I48.92 Unspecified atrial flutter (principal); R55 Syncope and collapse
CPT/HCPCS: 93272

== ENCOUNTER 2024-10-28 15:00 | Outpatient (RCR) | payer SELFPAY ==
[2024-10-02 00:21] VITALS: BP 142/71; PULSE 58
[2024-10-26 15:55] VITALS: BP 179/79; PULSE 73
[2024-10-28 14:50] VITALS: BP 135/65; PULSE 56
== END 2024-10-31 23:59 | disposition home or self-care (01) ==
LOC: CR 15:00
PROVIDERS: PCP Family Medicine; Visit Provider Internal Medicine Cardiovascular Disease

== ENCOUNTER 2024-11-22 14:00 | Outpatient (RCR) | payer SELFPAY ==
[2024-11-02 15:13] VITALS: BP 145/68; PULSE 57
[2024-11-15 14:18] VITALS: BP 137/89; PULSE 90
[2024-11-17 14:07] VITALS: BP 120/82; PULSE 89; O2SAT 94
[2024-11-22 14:19] VITALS: BP 138/79; PULSE 69
[2024-11-29 14:51] VITALS: BP 147/71; PULSE 60
== END 2024-12-01 23:59 | disposition home or self-care (01) ==
LOC: CR 14:00
PROVIDERS: PCP Family Medicine; Visit Provider Internal Medicine Cardiovascular Disease
DX: R69 Illness, unspecified (principal)

== ENCOUNTER 2024-11-22 16:45 | Outpatient (CLI) | payer MEDICARE, BC, SELFPAY ==
[2024-11-22 15:27] LABS: Anion Gap 6.9 mmol/L (3-11); BUN 24 mg/dL (7-18); CO2 28.1 mmol/L (21.0-32.0); Calcium 9.3 mg/dL (8.5-10.1); Chloride 105 mmol/L (98-107); Estimated GFR 65.03 (mL/min/1.73m2); Glucose 84 mg/dL (74-106); Potassium 4.0 mmol/L (3.5-5.1); Sodium 140 mmol/L (136-145)
== END 2024-11-22 16:46 | disposition home or self-care (01) ==
LOC: LBO 16:46
PROVIDERS: PCP Family Medicine; Visit Provider Family Medicine
DX: N18.9 Chronic kidney disease, unspecified (principal)
CPT/HCPCS: 36415; 80048

== ENCOUNTER 2024-12-09 01:22 | Outpatient (CLI) | payer MEDICARE, BC, SELFPAY ==
[2024-12-09] MEDS: Levalbuterol HFA 15 GM INH 4 PUFF IH (12:06)
[2024-12-09] MEDS: Inhaler, Assist Device 1 EACH MC (12:06)
--- NOTE | 2024-12-12 14:32 | W.PFT ---
Date of service: 12/09/24 Time of Service: 10:05 Pulmonary Function Test Result Indications: Dyspnea on exertion Impression 1. Good patient effort was noted. ATS standards for reproducibility were met. 2. Normal spirometry. 3. Following the administration of a bronchodilator there was [] response 4. TLC was normal. No evidence of restrictive lung disease 5. DLCO was normal indicating normal alveolar gas exchange
== END 2024-12-09 01:23 | disposition home or self-care (01) ==
LOC: RT 01:23
PROVIDERS: PCP Family Medicine; Visit Provider Internal Medicine Pulmonary Disease
DX: R06.09 Other forms of dyspnea (principal)
CPT/HCPCS: 94060; 94726; 94729

== ENCOUNTER 2024-12-22 14:00 | Outpatient (RCR) | payer SELFPAY ==
[2024-12-02 00:24] VITALS: BP 147/71; PULSE 60
[2024-12-06 14:18] VITALS: BP 134/64; PULSE 54
[2024-12-08 14:21] VITALS: BP 155/64; PULSE 49
[2024-12-20 14:23] VITALS: BP 141/65; PULSE 58
== END 2025-01-01 23:59 | disposition home or self-care (01) ==
LOC: CR 14:00
PROVIDERS: PCP Family Medicine; Visit Provider Internal Medicine Cardiovascular Disease
DX: R69 Illness, unspecified (principal)

== ENCOUNTER 2025-01-16 08:03 | Outpatient (CLI) | payer MEDICARE, BC, SELFPAY ==
--- NOTE | 2025-01-16 08:00 | RT.EKG_ITS ---
APPROVED REPORT Exam: Resting ECG Reason for Exam: arrhythmia Patient Location: O HR:53 bpm ECG Measurements Heart Rate 53 AXIS ID 69 P -77 QRSd 132 QRS -46 QT 508 T 10 QTc 477 Conclusion Ventricular-paced complexes...other complexes also detected No further analysis attempted due to paced rhythm
== END 2025-01-16 08:04 | disposition home or self-care (01) ==
LOC: DI.CARD 08:04
PROVIDERS: PCP Family Medicine; Visit Provider Registered Nurse
DX: I48.91 Unspecified atrial fibrillation (principal); I49.8 Other specified cardiac arrhythmias
CPT/HCPCS: 93010

== ENCOUNTER 2025-01-31 14:00 | Outpatient (RCR) | payer SELFPAY ==
[2025-01-03 14:23] VITALS: BP 151/61; PULSE 58
[2025-01-05 14:22] VITALS: BP 144/66; PULSE 52
[2025-01-10 14:32] VITALS: BP 158/62; PULSE 51
[2025-01-12 14:16] VITALS: BP 137/67; PULSE 52
[2025-01-17 14:13] VITALS: BP 127/64; PULSE 55
[2025-01-19 14:14] VITALS: BP 126/60; PULSE 53
[2025-01-24 14:35] VITALS: BP 129/58; PULSE 52
[2025-01-26 14:42] VITALS: BP 172/78; PULSE 56
[2025-01-31 14:45] VITALS: BP 145/69; PULSE 57
== END 2025-01-31 23:59 | disposition home or self-care (01) ==
LOC: CR 14:00
PROVIDERS: PCP Family Medicine; Visit Provider Internal Medicine Cardiovascular Disease
DX: R69 Illness, unspecified (principal)

== ENCOUNTER 2025-03-02 14:00 | Outpatient (RCR) | payer SELFPAY ==
[2025-02-02 14:44] VITALS: BP 145/63; PULSE 58
[2025-02-14 14:32] VITALS: BP 151/65; PULSE 54
[2025-02-16 14:00] VITALS: BP 143/64; PULSE 51; O2SAT 95
[2025-02-28 14:32] VITALS: BP 151/67; PULSE 60
[2025-03-02 14:00] VITALS: BP 176/72; PULSE 57
--- NOTE | 2025-03-02 14:13 | NUR.NOTE ---
Nursing Note: At approximately 1400 on 03/02/25, pt. arrived to the cardiopulmonary rehab gym to participate in her CR Phase Three exercise program. Pt. sat down in one of the chairs near the vital sign machines, had her vital signs obtained by the CPT, and as the CPT was obtaining her vital signs, the CPT noted that the pt. had significant bruising and swelling on her left hand and wrist. CPT asked this RN to come and assess the pt., which this RN did immediately. Pt. was noted to have significant ecchymossis and edema in her left posterior hand and left anterior wrist. Ecchymossis was a dark purple color. Edema was 2+ non-pitting edema and felt firm to touch. Pt.'s left wrist was warm to touch. Pt. was also noted to have increased weakness in her left hand compared to her right hand. Pt. denied any pain at this time. Pt. denied any numbness/tingling at this time. Pt. stated that this issue began on the morning of Thursday02/28/25 when she woke up. Pt. stated that she woke up and was having difficulty with opening and closing her left hand and was experiencing pain in her left hand and wrist. Pt. stated, I felt like I couldn't make a fist. Pt. stated that between Thursday and today, there had been an increase in the swelling. RN instructed pt. to hold off on exercising for today and instructed her to call her PCP's office to speak with someone while she was here with CR staff. Pt. called her PCP's office and spoke with a triage nurse who, per the pt., informed her that there weren't any available appointments this afternoon, but instructed her to go to urgent care. Pt. informed CR staff of the conversation she had had with the triage nurse. Pt. then grabbed her belongings and stated that she was heading directly to urgent care to be evaluated. Pt. was asked to just keep CR staff informed of her plan of care following her evaluation. Pt. verbalized understanding and stated that she would do so. Pt. then left the cardiopulmonary rehab gym.
== END 2025-03-03 23:59 | disposition home or self-care (01) ==
LOC: CR 14:00
PROVIDERS: PCP Family Medicine; Visit Provider Internal Medicine Cardiovascular Disease
DX: R69 Illness, unspecified (principal)

== ENCOUNTER → 2025-03-03 11:32 | Outpatient (CLI) | payer MEDICARE, BC, SELFPAY ==
--- NOTE | 2025-03-03 | DI.RAD_ITS ---
Exam(s) XR WRIST LT COMPLETE EXAM: XR WRIST LT COMPLETE CLINICAL HISTORY: LT WRIST PAIN, M25.532, SPONTANEOUS BRUISING, SWELLING, ? OCCULT FX. TECHNIQUE: 2D digital imaging was performed. COMPARISON: No exams were available for comparison FINDINGS: 3 views There is a volar fixation plate across a healed fracture site in the distal left radius. No evidence of acute fracture nor dislocation. There is mild positive ulnar variance noted. No abnormality seen in the adjacent lunate. There is some chondrocalcinosis noted in the radiocarpal joint. Also degenerative changes at the 1st carpometacarpal joint. No osseous lesions nor erosions. IMPRESSION: Healed fracture site distal radius with volar fixation plate. No acute fractures. Other findings as above. DATA REPOSITORY: RADIATION DOSE DELIVERED:
--- NOTE | 2025-03-03 | DI.RAD_ITS ---
Exam(s) XR HAND LT COMPLETE EXAM: XR HAND LT COMPLETE CLINICAL HISTORY: LT HAND PAIN, M79.642, SPONTANEOUS BRUISING, SWELLING, ? OCCULT FX. TECHNIQUE: 2D digital imaging was performed. COMPARISON: No exams were available for comparison FINDINGS: 3 views No evidence of acute fracture nor dislocation the hand. No abnormal soft tissue calcifications nor radiopaque foreign bodies. No osseous lesions nor erosions. Bone density is age-appropriate. There are no significant degenerative changes in the joints with the exception of mild-moderate degenerative change at the 1st carpometacarpal joint. Incidentally noted is a volar fixation plate across a healed fracture site in the distal radius. IMPRESSION: No acute osseous findings in the left hand. DATA REPOSITORY: RADIATION DOSE DELIVERED:
== END ==
PROVIDERS: PCP Family Medicine; Visit Provider Physician Assistant Medical
DX: M25.532 Pain in left wrist (principal); Z98.890 Other specified postprocedural states
CPT/HCPCS: 73110; 73130

== ENCOUNTER 2025-03-08 12:56 | Outpatient (REF) | payer MEDICARE, BC, SELFPAY ==
[2025-03-08 20:42] LABS: HCT 37.9 % (36.0-46.0); HGB 12.4 g/dL (11.2-15.7); MCH 33.3 pg (27.0-33.0); MCHC 32.7 % (32.0-36.0); MCV 102 fL (80-95); MPV 11.0 fL (8.0-11.0); Platelet Count 128 10^3/uL (130-400); RBC 3.72 10^6/uL (3.93-5.22); RDW 13.6 % (11.7-14.6); RDW-SD 51.0 fL; WBC 7.64 10^3/uL (4.4-10.8)
[2025-03-08 21:20] LABS: Hemoglobin A1C 5.3 % (<5.7)
[2025-03-08 21:27] LABS: Ferritin 136 ng/mL (8-252); TSH (W/Ref FT4) 0.95 uIU/mL (0.36-3.74)
[2025-03-08 21:37] LABS: Uric Acid 4.5 mg/dL (2.6-6.0)
== END 2025-03-08 12:57 | disposition home or self-care (01) ==
LOC: NCHCN 12:56
PROVIDERS: PCP Family Medicine; Visit Provider Family Medicine
DX: R73.03 Prediabetes (principal); E03.9 Hypothyroidism, unspecified; D64.9 Anemia, unspecified; Z87.39 Personal history of other diseases of the musculoskeletal system and connective tissue
CPT/HCPCS: 85027; 82728; 83036; 84443; 84550

== ENCOUNTER 2025-03-23 14:00 | Outpatient (RCR) | payer SELFPAY ==
[2025-03-07 14:36] VITALS: BP 178/88; PULSE 63
[2025-03-14 14:28] VITALS: BP 155/69; PULSE 55
[2025-03-16 14:37] VITALS: BP 139/61; PULSE 55
[2025-03-23 14:10] VITALS: BP 150/75; PULSE 61
== END 2025-04-02 23:59 | disposition home or self-care (01) ==
LOC: CR 14:00
PROVIDERS: PCP Family Medicine; Visit Provider Internal Medicine Cardiovascular Disease
DX: R69 Illness, unspecified (principal)

== ENCOUNTER → 2025-04-14 01:22 | Outpatient (CLI) | payer MEDICARE, BC, SELFPAY ==
--- NOTE | 2025-04-14 11:18 | DI.MAMMO_ITS ---
Exam(s) MG MAMMO SCREENING 60 MIN DUR EXAM: MG MAMMO SCREENING 60 MIN DUR CLINICAL HISTORY: SCREENING, Z12.31, PRIOR HX BREAST CA LT BREAST TECHNIQUE: Mammograms were interpreted according to the usual protocol including computer analysis with CAD system, tomosynthesis and C-view imaging. COMPARISON: 2016 through 2023 FINDINGS: The breasts are composed of scattered fibroglandular densities, Breast Density category B. No suspicious masses or suspicious microcalcifications are seen. No skin thickening or abnormal axillary lymph nodes are seen. There has been no significant change from prior exams. IMPRESSION: BI-RADS Category 1, Negative mammogram Yearly screening mammography is recommended. Breast Density - Category B - There are scattered areas of fibroglandular density. Breast density Category C or D implies that the patient has dense breast tissue. Dense breast tissue can make it harder to find cancer on a mammogram. Dense breast tissue is also associated with an increased risk of breast cancer. This information about the result of the mammogram report was provided to the patient to raise their awareness. Use this report when you speak with the patient about their risks for breast cancer, which includes their family history. At that time, you may recommend additional screening tests (Ultrasound or MRI) as these tests may add significant information. A negative radiographic report should not delay biopsy if a dominant or clinically suspicious mass is present. Up to ten percent of cancers are not identified on mammography. A negative report may reinforce clinical impression. Adenosis and dense breasts may obscure an underlying neoplasm. False positive reports average 6 to 10%. Patient will receive a letter notifying them of these results.
== END ==
LOC: DI 01:23
PROVIDERS: PCP Family Medicine; Visit Provider Family Medicine
DX: Z12.31 Encounter for screening mammogram for malignant neoplasm of breast (principal)
CPT/HCPCS: 77063; 77067

== ENCOUNTER 2025-04-25 14:00 | Outpatient (RCR) | payer SELFPAY ==
[2025-04-03 00:20] VITALS: BP 150/75; PULSE 61
[2025-04-06 14:11] VITALS: BP 144/66; PULSE 55
[2025-04-11 15:01] VITALS: BP 147/68; PULSE 54
[2025-04-13 14:43] VITALS: BP 141/67; PULSE 50
[2025-04-18 14:22] VITALS: BP 133/59; PULSE 59
[2025-04-20 14:00] VITALS: BP 136/59; PULSE 55
[2025-04-25 14:20] VITALS: BP 136/64; PULSE 57
== END 2025-05-03 23:59 | disposition home or self-care (01) ==
LOC: CR 14:00
PROVIDERS: PCP Family Medicine; Visit Provider Internal Medicine Cardiovascular Disease
DX: R69 Illness, unspecified (principal)